=== PATIENT | female | born 1980 | race Caucasian/White ===

== ENCOUNTER 2023-04-20 01:53 | Emergency (ER) | payer OTHER, SELFPAY ==
[2023-04-20 01:56] VITALS: BP 119/89; PULSE 91; RESP 16; TEMP 36.9; O2SAT 99; BMI 28.2
--- NOTE | 2023-04-20 02:14 | ED.BACK1 ---
HPI - Back Pain/Injury General Chief Complaint: Back Pain/Injury Stated Complaint: BACK PAIN Time Seen by Provider: 04/20/23 02:11 Source: patient Mode of arrival: walk-in Limitations: no limitations History of Present Illness HPI Narrative: patient presents complaining of mid back pain. States it started tonight. states pain between her shoulder blades and increases with deep breath. Not short of breath. Denies injury Related Data Home Medications Medication Instructions Recorded Confirmed cariprazine 1.5 mg capsule 1.5 mg PO DAILY 04/20/23 04/20/23 (Vraylar) diazepam 5 mg tablet 5 mg PO DAILY 04/20/23 04/20/23 divalproex 250 mg tablet,delayed 250 mg PO DAILY 04/20/23 04/20/23 release divalproex 500 mg tablet,extended 500 mg PO DAILY 04/20/23 04/20/23 release 24 hr doxazosin 2 mg tablet 2 mg PO DAILY 04/20/23 04/20/23 dulaglutide 0.75 mg/0.5 mL 0.75 mg subcut DAILY 04/20/23 04/20/23 subcutaneous pen injector (Trulicity) dulaglutide 1.5 mg/0.5 mL 1.5 mg subcut DAILY 04/20/23 04/20/23 subcutaneous pen injector (Trulicity) ergocalciferol (vitamin D2) 1,250 1,250 mcg PO DAILY 04/20/23 04/20/23 mcg (50,000 unit) capsule ferrous sulfate 325 mg (65 mg 325 mg PO DAILY 04/20/23 04/20/23 iron) tablet (FeroSul) gabapentin 800 mg tablet 800 mg PO DAILY 04/20/23 04/20/23 ibuprofen 800 mg tablet 1,000 mg PO BID 04/20/23 04/20/23 metformin 500 mg tablet,extended 500 mg PO DAILY 04/20/23 04/20/23 release 24 hr tizanidine 4 mg capsule 8 mg PO BID PRN muscle spasticity 04/20/23 04/20/23 Allergies Allergy/AdvReac Type Severity Reaction Status Date / Time amitriptyline Allergy dizzy Verified 04/20/23 02:02 latex Allergy hives Verified 04/20/23 02:02 sulfamethoxazole Allergy Hives Verified 04/20/23 02:02 [From Bactrim] tramadol [From Ultram] Allergy seizures Verified 04/20/23 02:02 trimethoprim [From Bactrim] Allergy Hives Verified 04/20/23 02:02 Review of Systems ROS Status of ROS 10 or more systems reviewed and unremarkable except as noted in history and below PFS PFS Social History Smoking status: Current every day smoker Exam Constitutional Vital Signs, click to edit/add: Last Vital Signs Temp 98.4 F 04/20/23 01:56 Pulse 91 H 04/20/23 01:56 Resp 16 04/20/23 01:56 BP 119/89 H 04/20/23 01:56 Pulse Ox 99 04/20/23 01:56 O2 Del Method Room Air 04/20/23 01:56 Common normals: no apparent distress, oriented x3, healthy appearing and alert HENMT Common normals: normocephalic Eye Common normals: EOMs intact bilaterally and conjunctivae normal Respiratory Common normals: normal respiratory effort, no retractions, no use of accessory muscles and clear to auscultation bilaterally Cardio Common normals: regular rate, regular rhythm, S1 normal heart sound and S2 normal heart sound GI Common normals: Normal to inspection, nondistended, normoactive bowel sounds present and soft to palpation Extremity Common normals: normal to inspection and full ROM Neuro Common normals: oriented x3, CN's II-XII intact bilaterally, moves all extremities and no focal motor deficits Psych Appearance: grossly normal Course Vital Signs Vital signs: Vital Signs Temperature 98.4 F 04/20/23 01:56 Pulse Rate 91 H 04/20/23 01:56 Respiratory Rate 16 04/20/23 01:56 Blood Pressure 119/89 H 04/20/23 01:56 Pulse Oximetry 99 04/20/23 01:56 Oxygen Delivery Method Room Air 04/20/23 01:56 Temperature 98.4 F 04/20/23 01:56 Pulse Rate 91 H 04/20/23 01:56 Respiratory Rate 16 04/20/23 01:56 Blood Pressure 119/89 H 04/20/23 01:56 Pulse Oximetry 99 04/20/23 01:56 Oxygen Delivery Method Room Air 04/20/23 01:56 MDM - Back Pain/Injury MDM Narrative Medical decision making narrative: presents with mid thoracic back pain . No injury. inflammatory markers normal. CTA chest without PE . Does have elevated WBC that can be seen with pain. No findings of pneumonia. Treated with Toradol and magnesium for her pain and pain improved. Unclear as to the cause of the pain but no worrisome findings during exam and workup at this time. Advised to follow up with her PCP tomorrow for a recheck or to return if pain worsenns Lab Data Labs: Lab Results 04/20/23 Range/Units 02:51 WBC 14.3 H (4.0-11.0) 10^3/uL RBC 4.27 (4.20-5.40) 10^6/uL Hgb 12.8 (12.0-16.0) g/dL Hct 38.1 (36.0-48.0) % MCV 89.2 (81.0-99.0) fL MCH 30.0 (26.7-34.0) pg MCHC 33.6 (29.9-35.2) g/dL RDW 12.4 (11.0-15.0) % Plt Count 235 (150-450) 10^3/uL MPV 9.6 (9.5-13.5) fL Neut % (Auto) 63.4 (43.0-75.0) % Lymph % (Auto) 26.9 (20.5-60.0) % [place] % (Auto) 8.3 (1.7-12.0) % Eos % (Auto) 0.4 L (0.9-7.0) % Baso % (Auto) 0.4 (0.2-2.0) % Neut # (Auto) 9.1 H (1.4-6.5) 10^3/uL Lymph # (Auto) 3.8 (1.2-3.8) 10^3/uL [place] # (Auto) 1.2 H (0.3-0.8) 10^3/uL Eos # (Auto) 0.1 (0.0-0.7) 10^3/uL Baso # (Auto) 0.1 (0.0-0.1) 10^3/uL Abs Immat Gran (auto) 0.09 H (0.00-0.03) 10^3/uL Imm/Tot Granulo (auto) 0.6 H (0.0-0.5) % ESR 6 (<=20) mm/hr D-Dimer 0.42 (<=0.59) mg/L FEU Sodium 132 L (136-145) mmol/L Potassium 4.6 (3.5-5.1) mmol/L Chloride 97 L (98-107) mmol/L Carbon Dioxide 24.2 (21.0-32.0) mmol/L Anion Gap 15.4 BUN 12.0 (7.0-18.0) mg/dL Creatinine 0.70 (0.55-1.02) mg/dL Est GFR ( Amer) >60 (>=60) Est GFR (Non-Af Amer) >60 (>=60) BUN/Creatinine Ratio 17.1 Glucose 141 H (74-106) mg/dL Calcium 9.2 (8.5-10.1) mg/dL Total Bilirubin 0.3 (0.2-1.0) mg/dL AST 32 (15-37) U/L ALT 14 (14-59) U/L Alkaline Phosphatase 56 (46-116) U/L Troponin I High Sens <4.0 L (4.0-51.3) pg/mL C-Reactive Protein 0.5 (<=1.0) mg/dL Total Protein 6.9 (6.4-8.2) g/dL Albumin 3.5 (3.4-5.0) g/dL Globulin 3.4 g/dL Albumin/Globulin Ratio 1.0 Lipase 86.0 (73.0-393.0) U/L Discharge Plan Discharge Chief Complaint: Back Pain/Injury Clinical Impression: Acute midline back pain Prescriptions / Home Meds: No Action Vraylar 1.5 mg capsule 1.5 mg PO DAILY diazepam 5 mg tablet 5 mg PO DAILY divalproex 250 mg tablet,delayed release (DR/EC) 250 mg PO DAILY divalproex 500 mg tablet extended release 24 hr 500 mg PO DAILY doxazosin 2 mg tablet 2 mg PO DAILY Trulicity 0.75 mg/0.5 mL pen injector 0.75 mg SUBCUT DAILY Trulicity 1.5 mg/0.5 mL pen injector 1.5 mg SUBCUT DAILY ergocalciferol (vitamin D2) 1,250 mcg (50,000 unit) capsule 1,250 mcg PO DAILY ferrous sulfate [FeroSul] 325 mg (65 mg iron) tablet 325 mg PO DAILY gabapentin 800 mg tablet 800 mg PO DAILY ibuprofen 800 mg tablet 1,000 mg PO BID tizanidine 4 mg capsule 8 mg PO BID PRN (Reason: muscle spasticity) metformin 500 mg tablet extended release 24 hr 500 mg PO DAILY Instructions: Back Pain (ED) Additional Instructions: follow up with your doctor tomorrow for recheck. Return to ER if pain increases Stand Alone Forms: Portal Instructions Referrals: Physician,Non-Staff, MD [Primary Care Provider] - 1 week
--- NOTE | 2023-04-20 02:15 | PC.NURSE ---
patient states she began to develop back pain to the middle of her back yesterday that is continuing to get worse. denies any injury, states she has hx of fibromyalgia. patient states she tried several prescription pain medications, muscle relaxers, and NSAIDs but has had no relief in pain and has been unable to go to sleep.
--- NOTE | 2023-04-20 02:16 | ECG_ITS ---
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
--- NOTE | 2023-04-20 02:55 | CT_ITS ---
The [address] [address] Patient Name: RACHEL MCGARRY MRN: [id number] date: 1980 Sex: F Assigned Patient Location: ER Current Patient Location: Accession/Order Number: [id number] Exam Date: 04/20/2023 02:55 Report Date: 04/20/2023 03:45 At the request of: AMY MCKEON Procedure: CT angio chest EXAM: CT angio chest HISTORY: pleuritic chest pain , acute thoracic mid back pain with dyspnea COMPARISON: CT chest 05/11/2021 TECHNIQUE: Multiple axial views CT chest angiogram PE protocol after administration of 95 mL Omnipaque 350 IV contrast. Coronal sagittal reformats. 3-D reconstruction. MIPS and/or similar series. FINDINGS: No evidence for acute pulmonary embolism, thoracic aortic aneurysm, or aortic dissection. No enlarged heart size or large pericardial effusion. Right hilar calcified granulomatous lymph node. Multiple prominent left axillary lymph nodes measuring up to 13 mm. Central airway is patent. Mosaic attenuation of the lungs reflecting respiratory motion/hypoventilatory lung changes. No lung consolidation, large pleural effusions, or pneumothorax. Right lower lobe calcified lung granuloma. Diffuse hepatic steatosis and hepatomegaly. Minimal hiatal hernia. No acute bony abnormality. Unremarkable thoracic alignment. No vertebral body height loss. No acute fracture or traumatic subluxation. No visible displaced rib fractures. CT/CT angio chest IMPRESSION: No evidence for acute pulmonary embolism, thoracic aortic aneurysm, or aortic dissection. No enlarged heart size or large pericardial effusion. Multiple prominent left axillary lymph nodes measuring up to 13 mm. One of the lymph nodes contain a density, likely biopsy marker. These findings are similar to CT 05/11/2021 in terms of size. Correlate clinically and with prior biopsy history. Electronically authenticated by: HUSEYIN DE LA ROSA Date: 04/20/2023 03:45
[2023-04-20 03:09] LABS: Basophils Absolute Auto 0.1 10^3/uL (0.0-0.1); Basophils Percent Auto 0.4 % (0.2-2.0); Eosinophils Absolute Auto 0.1 10^3/uL (0.0-0.7); Eosinophils Percent Auto 0.4 % (0.9-7.0); Hematocrit 38.1 % (36.0-48.0); Hemoglobin 12.8 g/dL (12.0-16.0); Immature Granulocytes Abs Auto 0.09 10^3/uL (0.00-0.03); Immature Granulocytes Pct Auto 0.6 % (0.0-0.5); Lymphocytes Absolute Auto 3.8 10^3/uL (1.2-3.8); Lymphocytes Percent Auto 26.9 % (20.5-60.0); Mean Corpuscular HGB Conc 33.6 g/dL (29.9-35.2); Mean Corpuscular Volume 89.2 fL (81.0-99.0); Mean Platelet Volume 9.6 fL (9.5-13.5); Monocytes Absolute Auto 1.2 10^3/uL (0.3-0.8); Monocytes Percent Auto 8.3 % (1.7-12.0); Neutrophils Absolute Auto 9.1 10^3/uL (1.4-6.5); Neutrophils Percent Auto 63.4 % (43.0-75.0); Platelet Count 235 10^3/uL (150-450); Red Blood Count 4.27 10^6/uL (4.20-5.40); Red Cell Distribution Width 12.4 % (11.0-15.0); White Blood Count 14.3 10^3/uL (4.0-11.0)
[2023-04-20 03:34] LABS: D Dimer 0.42 mg/L FEU (<=0.59)
[2023-04-20 03:39] LABS: Alanine Aminotransferase 14 U/L (14-59); Albumin Level 3.5 g/dL (3.4-5.0); Alkaline Phosphatase 56 U/L (46-116); Anion Gap 15.4; Aspartate Amino Transferase 32 U/L (15-37); BUN Creatinine Ratio 17.1; Bilirubin Total 0.3 mg/dL (0.2-1.0); Calcium 9.2 mg/dL (8.5-10.1); Carbon Dioxide 24.2 mmol/L (21.0-32.0); Chloride 97 mmol/L (98-107); Estimated GFR (African America >60 (>=60); Estimated GFR (Non-African Ame >60 (>=60); Globulin 3.4 g/dL; Glucose 141 mg/dL (74-106); Potassium 4.6 mmol/L (3.5-5.1); Sodium 132 mmol/L (136-145); Total Protein 6.9 g/dL (6.4-8.2); Troponin I High Sensitivity <4.0 pg/mL (4.0-51.3)
[2023-04-20 04:41] LABS: Erythrocyte Sedimentation Rate 6 mm/hr (<=20)
[2023-04-20 04:44] LABS: C Reactive Protein 0.5 mg/dL (<=1.0)
[2023-04-20] MEDS: KETOROLAC TROMETHAMINE 30 MG/ML VIAL IVP (04:49)
== END 2023-04-20 05:41 | disposition home or self-care (01) ==
PROVIDERS: Emergency Provider Internal Medicine
DX: M54.9 Dorsalgia, unspecified (principal); Z79.899 Other long term (current) drug therapy; Z79.85 Long-term (current) use of injectable non-insulin antidiabetic drugs; F17.210 Nicotine dependence, cigarettes, uncomplicated
CPT/HCPCS: 36415; 71275; 80053; 83690; 84484; 85025; 85378; 85652; 86140; 93005; 96374; 96375; 99285; Q9967

== ENCOUNTER 2023-05-06 19:05 | Emergency (ER) | payer OTHER, SELFPAY ==
[2023-05-06 19:11] VITALS: BP 146/84; PULSE 72; RESP 16; TEMP 36.6; O2SAT 100; BMI 27.5
--- NOTE | 2023-05-06 19:28 | ED_ITS ---
HPI - Female Genitourinary General Chief complaint: Urogenital-Female Stated complaint: VAGINAL BLEEDING Time Seen by Provider: 05/06/23 19:11 Source: patient Mode of arrival: Wheelchair History of Present Illness HPI Narrative: This 43-year-old female presents for evaluation of lower abdominal cramping and heavy vaginal bleeding. The patient states she typically has a menstrual period for 3-5 days. This is day 7. She states she is soaking through dylan pads at the rate of 4per hour. He states he feels lightheaded. She has no chest pain or shortness of breath. She has not passed out. She denies the possibility of . Her previous [employer] was Dr. Velez. Dr. Velez told her that she had fibroids and endometriosis. She was seen yesterday by her family physician who gave her a prescription for [place] to use for pain. She has taken for [place] throughout the day today but states it is not helping her pain. She is not on control. She does smoke cigarettes. She is sexually active but uses protection and is certain that she is not because she had a negative test in her doctors office 2 days ago. MD elicited complaint: Reports vaginal bleeding Quality of pain: Reports cramping Related Data Home Medications Medication Instructions Recorded Confirmed cariprazine 1.5 mg capsule 1.5 mg PO DAILY 04/20/23 04/20/23 (Vraylar) diazepam 5 mg tablet 5 mg PO DAILY 04/20/23 04/20/23 divalproex 250 mg tablet,delayed 250 mg PO DAILY 04/20/23 04/20/23 release divalproex 500 mg tablet,extended 500 mg PO DAILY 04/20/23 04/20/23 release 24 hr doxazosin 2 mg tablet 2 mg PO DAILY 04/20/23 04/20/23 dulaglutide 0.75 mg/0.5 mL 0.75 mg subcut DAILY 04/20/23 04/20/23 subcutaneous pen injector (Trulicity) dulaglutide 1.5 mg/0.5 mL 1.5 mg subcut DAILY 04/20/23 04/20/23 subcutaneous pen injector (Trulicity) ergocalciferol (vitamin D2) 1,250 1,250 mcg PO DAILY 04/20/23 04/20/23 mcg (50,000 unit) capsule ferrous sulfate 325 mg (65 mg 325 mg PO DAILY 04/20/23 04/20/23 iron) tablet (FeroSul) gabapentin 800 mg tablet 800 mg PO DAILY 04/20/23 04/20/23 ibuprofen 800 mg tablet 1,000 mg PO BID 04/20/23 04/20/23 metformin 500 mg tablet,extended 500 mg PO DAILY 04/20/23 04/20/23 release 24 hr tizanidine 4 mg capsule 8 mg PO BID PRN muscle spasticity 04/20/23 04/20/23 Allergies Allergy/AdvReac Type Severity Reaction Status Date / Time amitriptyline Allergy dizzy Verified 04/20/23 02:02 latex Allergy hives Verified 04/20/23 02:02 sulfamethoxazole Allergy Hives Verified 04/20/23 02:02 [From Bactrim] tramadol [From Ultram] Allergy seizures Verified 04/20/23 02:02 trimethoprim [From Bactrim] Allergy Hives Verified 04/20/23 02:02 Review of Systems ROS Status of ROS 10 or more systems reviewed and unremarkable except as noted in history and below [facility] Social History Smoking status: Current every day smoker Exam Narrative Exam Narrative: Nurses note and vital signs reviewed and patient is not hypoxic. Blood pressure noted to be mildly elevated at 146/84 General: The patient appears well and in no apparent distress. Patient is resting comfortably on cart. She is ambulatory without difficulty and does not exhibit any exertional dyspnea Skin: Warm, dry, no pallor noted. There is no rash noted. Head: Normocephalic, atraumatic Eye: Normal conjunctiva, no drainage, EOMI. PERRL Ears, Nose, Mouth, and Throat: oral mucosa is moist. Cardiovascular: Regular Rate and Rhythm S1S2 Respiratory: Patient is in no distress, no accessory muscle use, lungs are clear to auscultation, no wheezing, rales or rhonchi Back: non-tender, no CVA tenderness bilaterally to percussion. GI: Obese, soft, non distended, lower abdominal tenderness - chaperoned by Sofiya ANDREWS; small amount of blood in vaginal vault, no clots appreciated, os is closed, no CMT Musculoskeletal: The patient has no evidence of calf tenderness, no pitting edema, symmetrical pulses noted bilaterally Neurological: A&O x4, normal speech Psychiatric: Cooperative Constitutional Vital Signs, click to edit/add: Last Vital Signs Temp 98.4 F 05/06/23 20:50 Pulse 77 05/06/23 22:02 Resp 16 05/06/23 22:02 BP 136/94 H 05/06/23 22:02 Pulse Ox 100 05/06/23 22:02 O2 Del Method Room Air 05/06/23 22:02 Course Course Hospital Course: [place] [address] Ultrasound Report Signed Patient: RACHEL MCGARRY MR#: [id number] : 1980 Acct:[id number] Age/Sex: 43 / F ADM Date: 05/06/23 Loc: ER Attending Dr: Ordering Physician: Anisa Chong Date of Service: 05/06/23 Procedure(s): US pelvis w/ transvaginal Accession Number(s): [id number] cc: Anisa Marker; Physician,Non-Staff M.D.~ ? [facility] ?? ? [address] [place] [address] ?? ? [place] [address] ? Patient Name: JOELLE MCGARRY ? MRN: [id number]? ? date: 1980? ? Sex: F Assigned Patient Location: ER Current Patient Location: ER Accession/Order Number: [id number] Exam Date: 05/06/2023? 19:40? ? Report Date: 05/06/2023? 22:16 ? At the request of: ANISA? MARKER? ? Procedure:? US pelvis w/ transvaginal ? EXAM: US pelvis w/ transvaginal ? CLINICAL HISTORY: Heavy vaginal bleeding ? COMPARISON: CT abdomen and pelvis 05/11/2021 ? TECHNIQUE: Transvaginal and transabdominal real-time grayscale and color Doppler imaging with pulsed duplex sonography was performed. ? FINDINGS: ? UTERUS: Measures 9 centimeters in length. Nabothian cyst is noted. Otherwise unremarkable. ? ENDOMETRIUM: Not well visualized but does not appear to be thickened measuring ? approximately 5 millimeters ? OVARIES: Right ovary appears unremarkable. Right ovary measures 3.2 by 1.5 by 2.7 cm. Left ovary demonstrates a hypoechoic structure with contents demonstrate reticular pattern measuring up to 3.9 centimeters. The left ovary measures 4.8 by 3.3 by 4.0 cm. Ovaries demonstrate color Doppler flow and appropriate spectral waveforms. ? MISCELLANEOUS: Small amount of cul-de-sac fluid ? US/US pelvis w/ transvaginal IMPRESSION: ? Endometrium is suboptimally visualized but does not appear thickened measuring ? approximately 5 millimeters. Otherwise unremarkable appearance of the uterus. Probable left hemorrhagic ovarian cyst. Unremarkable right ovary. ? Vital Signs Vital signs: Vital Signs Temperature 97.9 F 05/06/23 19:11 Pulse Rate 72 05/06/23 19:11 Respiratory Rate 16 05/06/23 19:11 Blood Pressure 146/84 H 05/06/23 19:11 Pulse Oximetry 100 05/06/23 19:11 Oxygen Delivery Method Room Air 05/06/23 19:11 Temperature 98.4 F 05/06/23 20:50 Pulse Rate 77 05/06/23 22:02 Respiratory Rate 16 05/06/23 22:02 Blood Pressure 136/94 H 05/06/23 22:02 Pulse Oximetry 100 05/06/23 22:02 Oxygen Delivery Method Room Air 05/06/23 22:02 MDM - Female Genitourinary MDM Narrative Medical decision making narrative: This 43-year-old female presents for evaluation of 7 days of heavy vaginal bleeding. She was seen by her family physician and given a prescription for [place] and referred to Dr. Sridhra jones, [employer]. She does not have an appointment for 2 weeks. She states she was going to 4 pads an hour. She complained of some lightheadedness. She denied any chest pain shortness of breath or syncope. She also complained of lower abdominal cramping. Her vital signs are stable. She had a negative test 2 days ago. Her pelvic exam revealed a small amount of blood in the vaginal vault, no CMT, no clotting or heavy active bleeding. An ultrasound of the pelvis which is occluded the body of this report shows 5 mm thickening of the endometrium and a left hemorrhagic cyst but no other abnormal findings. The patient does state that she has a history of fibroids. Routine labs were ordered and are reviewed. She has a normal hemoglobin. Normal white count. Electrolytes are normal with the exception of a mildly low sodium at 129. She was medicated emergency department with IV fluids, Zofran and Toradol. She remains hemodynamically stable in emergency department. On reevaluation she states that she felt like her bleeding has slowed down. She'll be discharged home with prescription for ibuprofen to use in conjunction with her other medications. I signed her that I am not going to initiate steroids to decrease her vaginal bleeding to the fact that she smokes cigarettes and this puts her at a higher risk of stroke, heart attack, deep vein thrombosis and PE. She verbalizes understanding of this decision of midline. She is otherwise hemodynamically stable for discharge. Lab Data Labs: Lab Results 05/06/23 Range/Units 19:35 WBC 15.6 H (4.0-11.0) 10^3/uL RBC 4.28 (4.20-5.40) 10^6/uL Hgb 12.9 (12.0-16.0) g/dL Hct 37.0 (36.0-48.0) % MCV 86.4 (81.0-99.0) fL MCH 30.1 (26.7-34.0) pg MCHC 34.9 (29.9-35.2) g/dL RDW 12.2 (11.0-15.0) % Plt Count 349 (150-450) 10^3/uL MPV 8.9 L (9.5-13.5) fL Neut % (Auto) 66.8 (43.0-75.0) % Lymph % (Auto) 23.9 (20.5-60.0) % [place] % (Auto) 7.9 (1.7-12.0) % Eos % (Auto) 0.3 L (0.9-7.0) % Baso % (Auto) 0.4 (0.2-2.0) % Neut # (Auto) 10.5 H (1.4-6.5) 10^3/uL Lymph # (Auto) 3.7 (1.2-3.8) 10^3/uL [place] # (Auto) 1.2 H (0.3-0.8) 10^3/uL Eos # (Auto) 0.1 (0.0-0.7) 10^3/uL Baso # (Auto) 0.1 (0.0-0.1) 10^3/uL Abs Immat Gran (auto) 0.11 H (0.00-0.03) 10^3/uL Imm/Tot Granulo (auto) 0.7 H (0.0-0.5) % Sodium 129 L (136-145) mmol/L Potassium 4.0 (3.5-5.1) mmol/L Chloride 95 L (98-107) mmol/L Carbon Dioxide 25.8 (21.0-32.0) mmol/L Anion Gap 12.2 BUN 11.0 (7.0-18.0) mg/dL Creatinine 0.70 (0.55-1.02) mg/dL Est GFR ( Amer) >60 (>=60) Est GFR (Non-Af Amer) >60 (>=60) BUN/Creatinine Ratio 15.7 Glucose 185 H (74-106) mg/dL Calcium 8.5 (8.5-10.1) mg/dL Total Bilirubin 0.2 (0.2-1.0) mg/dL AST 13 L (15-37) U/L ALT 12 L (14-59) U/L Alkaline Phosphatase 60 (46-116) U/L Total Protein 7.1 (6.4-8.2) g/dL Albumin 3.6 (3.4-5.0) g/dL Globulin 3.5 g/dL Albumin/Globulin Ratio 1.0 Serum HCG, Qual Cancelled Blood Type A Positive Antibody Screen Negative Discharge Plan Discharge Chief Complaint: Urogenital-Female Clinical Impression: Menometrorrhagia Patient Disposition: Home, Self-Care Time of Disposition Decision: 22:38 Condition: Good Prescriptions / Home Meds: No Action Vraylar 1.5 mg capsule 1.5 mg PO DAILY diazepam 5 mg tablet 5 mg PO DAILY divalproex 250 mg tablet,delayed release (DR/EC) 250 mg PO DAILY divalproex 500 mg tablet extended release 24 hr 500 mg PO DAILY doxazosin 2 mg tablet 2 mg PO DAILY Trulicity 0.75 mg/0.5 mL pen injector 0.75 mg SUBCUT DAILY Trulicity 1.5 mg/0.5 mL pen injector 1.5 mg SUBCUT DAILY ergocalciferol (vitamin D2) 1,250 mcg (50,000 unit) capsule 1,250 mcg PO DAILY ferrous sulfate [FeroSul] 325 mg (65 mg iron) tablet 325 mg PO DAILY gabapentin 800 mg tablet 800 mg PO DAILY ibuprofen 800 mg tablet 1,000 mg PO BID tizanidine 4 mg capsule 8 mg PO BID PRN (Reason: muscle spasticity) metformin 500 mg tablet extended release 24 hr 500 mg PO DAILY Instructions: Abnormal (Dysfunctional) Uterine Bleeding (ED) Stand Alone Forms: Portal Instructions Referrals: Physician,Non-Staff, MD [Primary Care Provider] - 1 week
--- NOTE | 2023-05-06 19:33 | US_ITS ---
The [address] [address] Patient Name: RACHEL MCGARRY MRN: [id number] date: 1980 Sex: F Assigned Patient Location: ER Current Patient Location: ER Accession/Order Number: [id number] Exam Date: 05/06/2023 19:40 Report Date: 05/06/2023 22:16 At the request of: DERICK MARKER Procedure: US pelvis w/ transvaginal EXAM: US pelvis w/ transvaginal CLINICAL HISTORY: Heavy vaginal bleeding COMPARISON: CT abdomen and pelvis 05/11/2021 TECHNIQUE: Transvaginal and transabdominal real-time grayscale and color Doppler imaging with pulsed duplex sonography was performed. FINDINGS: UTERUS: Measures 9 centimeters in length. Nabothian cyst is noted. Otherwise unremarkable. ENDOMETRIUM: Not well visualized but does not appear to be thickened measuring approximately 5 millimeters OVARIES: Right ovary appears unremarkable. Right ovary measures 3.2 by 1.5 by 2.7 cm. Left ovary demonstrates a hypoechoic structure with contents demonstrate reticular pattern measuring up to 3.9 centimeters. The left ovary measures 4.8 by 3.3 by 4.0 cm. Ovaries demonstrate color Doppler flow and appropriate spectral waveforms. MISCELLANEOUS: Small amount of cul-de-sac fluid US/US pelvis w/ transvaginal IMPRESSION: Endometrium is suboptimally visualized but does not appear thickened measuring approximately 5 millimeters. Otherwise unremarkable appearance of the uterus. Probable left hemorrhagic ovarian cyst. Unremarkable right ovary. Electronically authenticated by: TRISTIAN MARQUIS Date: 05/06/2023 22:16
[2023-05-06 19:50] LABS: Basophils Absolute Auto 0.1 10^3/uL (0.0-0.1); Basophils Percent Auto 0.4 % (0.2-2.0); Eosinophils Absolute Auto 0.1 10^3/uL (0.0-0.7); Eosinophils Percent Auto 0.3 % (0.9-7.0); Hemoglobin 12.9 g/dL (12.0-16.0); Immature Granulocytes Abs Auto 0.11 10^3/uL (0.00-0.03); Immature Granulocytes Pct Auto 0.7 % (0.0-0.5); Lymphocytes Absolute Auto 3.7 10^3/uL (1.2-3.8); Lymphocytes Percent Auto 23.9 % (20.5-60.0); Mean Corpuscular HGB Conc 34.9 g/dL (29.9-35.2); Mean Corpuscular Hemoglobin 30.1 pg (26.7-34.0); Mean Corpuscular Volume 86.4 fL (81.0-99.0); Mean Platelet Volume 8.9 fL (9.5-13.5); Monocytes Absolute Auto 1.2 10^3/uL (0.3-0.8); Monocytes Percent Auto 7.9 % (1.7-12.0); Neutrophils Absolute Auto 10.5 10^3/uL (1.4-6.5); Neutrophils Percent Auto 66.8 % (43.0-75.0); Platelet Count 349 10^3/uL (150-450); Red Blood Count 4.28 10^6/uL (4.20-5.40); Red Cell Distribution Width 12.2 % (11.0-15.0); White Blood Count 15.6 10^3/uL (4.0-11.0)
[2023-05-06 20:36] LABS: Alanine Aminotransferase 12 U/L (14-59); Albumin Level 3.6 g/dL (3.4-5.0); Alkaline Phosphatase 60 U/L (46-116); Anion Gap 12.2; Aspartate Amino Transferase 13 U/L (15-37); BUN Creatinine Ratio 15.7; Bilirubin Total 0.2 mg/dL (0.2-1.0); Calcium 8.5 mg/dL (8.5-10.1); Carbon Dioxide 25.8 mmol/L (21.0-32.0); Chloride 95 mmol/L (98-107); Estimated GFR (African America >60 (>=60); Estimated GFR (Non-African Ame >60 (>=60); Globulin 3.5 g/dL; Glucose 185 mg/dL (74-106); Sodium 129 mmol/L (136-145); Total Protein 7.1 g/dL (6.4-8.2)
[2023-05-06 20:50] VITALS: BP 151/92; PULSE 75; RESP 16; TEMP 36.9; O2SAT 95
[2023-05-06] MEDS: KETOROLAC TROMETHAMINE 30 MG/ML VIAL IVP (20:56)
[2023-05-06] MEDS: 0.9 % SODIUM CHLORIDE 1,000 ML 1000 ML IV (20:56)
[2023-05-06 22:02] VITALS: BP 136/94; PULSE 77; RESP 16; O2SAT 100
[2023-05-06 22:42] VITALS: BP 156/90; PULSE 77; RESP 14; O2SAT 100
== END 2023-05-06 22:50 | disposition home or self-care (01) ==
PROVIDERS: Emergency Provider Emergency Medicine
DX: N92.1 Excessive and frequent menstruation with irregular cycle (principal); Z79.899 Other long term (current) drug therapy; Z79.84 Long term (current) use of oral hypoglycemic drugs; F17.210 Nicotine dependence, cigarettes, uncomplicated
CPT/HCPCS: 36415; 76830; 76856; 80053; 84703; 85025; 86850; 86900; 86901; 96374; 99285

== ENCOUNTER 2023-10-02 19:41 | Emergency (ER) | payer OTHER, SELFPAY ==
[2023-10-02 19:58] VITALS: BP 152/78; PULSE 93; RESP 16; TEMP 36.8; O2SAT 98; BMI 37.9
[2023-10-02 22:00] LABS: Bilirubin Urine NEGATIVE (NEGATIVE); Blood Urine NEGATIVE (NEGATIVE); Clarity Urine CLEAR (CLEAR); Color Urine LT. YELLOW (YELLOW); Glucose Urine UA >=1000 mg/dL (NEGATIVE); Ketones Urine TRACE mg/dL (NEGATIVE); Leukocyte Esterase Urine TRACE (NEGATIVE); Nitrite Urine NEGATIVE (NEGATIVE); Protein Urine NEGATIVE (NEG/TRACE); Urobilinogen Urine 0.2 EU/dL (0.2-1.0)
--- NOTE | 2023-10-02 22:04 | ED.FEMALEGU1 ---
HPI - Female Genitourinary General Chief complaint: Vaginal Bleeding Stated complaint: POSS SURGERY ISSUES Time Seen by Provider: 10/02/23 20:03 Source: patient Mode of arrival: walk-in Limitations: no limitations History of Present Illness HPI Narrative: 43-year-old female presents for discomfort in her vaginal area. On September 28, four days ago, she had hysterectomy. Two days ago the symptoms started. She has some pressure when she urinates. No heavy vaginal bleeding. No discharge. Related Data Home Medications Medication Instructions Recorded Confirmed cariprazine 1.5 mg capsule 1.5 mg PO DAILY 04/20/23 04/20/23 (Vraylar) diazepam 5 mg tablet 5 mg PO DAILY 04/20/23 04/20/23 divalproex 250 mg tablet,delayed 250 mg PO DAILY 04/20/23 04/20/23 release divalproex 500 mg tablet,extended 500 mg PO DAILY 04/20/23 04/20/23 release 24 hr doxazosin 2 mg tablet 2 mg PO DAILY 04/20/23 04/20/23 dulaglutide 0.75 mg/0.5 mL 0.75 mg subcut DAILY 04/20/23 04/20/23 subcutaneous pen injector (Trulicity) dulaglutide 1.5 mg/0.5 mL 1.5 mg subcut DAILY 04/20/23 04/20/23 subcutaneous pen injector (Trulicity) ergocalciferol (vitamin D2) 1,250 1,250 mcg PO DAILY 04/20/23 04/20/23 mcg (50,000 unit) capsule ferrous sulfate 325 mg (65 mg 325 mg PO DAILY 04/20/23 04/20/23 iron) tablet (FeroSul) gabapentin 800 mg tablet 800 mg PO DAILY 04/20/23 04/20/23 ibuprofen 800 mg tablet 1,000 mg PO BID 04/20/23 04/20/23 metformin 500 mg tablet,extended 500 mg PO DAILY 04/20/23 04/20/23 release 24 hr tizanidine 4 mg capsule 8 mg PO BID PRN muscle spasticity 04/20/23 04/20/23 Allergies Allergy/AdvReac Type Severity Reaction Status Date / Time amitriptyline Allergy dizzy Verified 10/02/23 20:02 latex Allergy hives Verified 10/02/23 20:02 sulfamethoxazole Allergy Hives Verified 10/02/23 20:02 [From Bactrim] tramadol [From Ultram] Allergy seizures Verified 10/02/23 20:02 trimethoprim [From Bactrim] Allergy Hives Verified 10/02/23 20:02 Review of Systems ROS Narrative A ten point review of systems is negative except as noted above. PFSH PFSH Social History Smoking status: Current every day smoker Exam Narrative Exam Narrative: Nurses note and vital signs reviewed and patient is not hypoxic. General: The patient appears well and in no apparent distress. Patient is resting comfortably on cart. Skin: Warm, dry, no pallor noted. There is no rash noted. Head: Normocephalic, atraumatic Eye: Normal conjunctiva, no drainage Ears, Nose, Mouth, and Throat: oral mucosa is moist. Nares patent. Cardiovascular: Regular Rate and Rhythm Respiratory: Patient is in no distress, no accessory muscle use, lungs are clear to auscultation, no wheezing, rales or rhonchi Back: non-tender GI: soft and nontender. Surgical wound is healing well with no dehiscence or erythema Musculoskeletal: The patient has no evidence of calf tenderness, no pitting edema, symmetrical pulses noted bilaterally : No external skin lesions or erythema Neurological: A&O, normal speech Psychiatric: Cooperative Constitutional Vital Signs, click to edit/add: Last Vital Signs Temp 98.2 F 10/02/23 19:58 Pulse 73 10/02/23 22:06 Resp 18 10/02/23 22:06 BP 117/83 10/02/23 22:06 Pulse Ox 97 10/02/23 22:06 O2 Del Method Room Air 10/02/23 19:58 Course Vital Signs Vital signs: Vital Signs Temperature 98.2 F 10/02/23 19:58 Pulse Rate 93 H 10/02/23 19:58 Respiratory Rate 16 10/02/23 19:58 Blood Pressure 152/78 H 10/02/23 19:58 Pulse Oximetry 98 10/02/23 19:58 Oxygen Delivery Method Room Air 10/02/23 19:58 Temperature 98.2 F 10/02/23 19:58 Pulse Rate 73 10/02/23 22:06 Respiratory Rate 18 10/02/23 22:06 Blood Pressure 117/83 10/02/23 22:06 Pulse Oximetry 97 10/02/23 22:06 Oxygen Delivery Method Room Air 10/02/23 19:58 MDM - Female Genitourinary MDM Narrative Medical decision making narrative: urinalysis does not show presence of urinary tract infection. WBC is elevated at nineteen thousand but she has a benign physical exam and recently had surgery. She was offered pelvic exam for swabs but prefers to not do that because of her recent surgery and she'll follow up promptly with her printing screen assembler. In the event that this is a vaginal yeast infection we have agreed that the patient will be treated with Diflucan tonight. Treatment diagnosis and follow-up were discussed with the patient. Differential Diagnosis Differential diagnosis: Likely urinary tract infection, trichomoniasis, cervicitis, vaginitis, cystitis and other (vaginal yeast infection) Lab Data Attestation: I reviewed the patient's lab results. Labs: Lab Results 10/02/23 10/02/23 Range/Units 21:30 22:32 WBC 19.2 H (4.0-11.0) 10^3/uL RBC 4.17 L (4.20-5.40) 10^6/uL Hgb 12.5 (12.0-16.0) g/dL Hct 38.0 (36.0-48.0) % MCV 91.1 (81.0-99.0) fL MCH 30.0 (26.7-34.0) pg MCHC 32.9 (29.9-35.2) g/dL RDW 12.8 (11.0-15.0) % Plt Count 239 (150-450) 10^3/uL MPV 9.8 (9.5-13.5) fL Neut % (Auto) 70.1 (43.0-75.0) % Lymph % (Auto) 20.2 L (20.5-60.0) % [place] % (Auto) 6.1 (1.7-12.0) % Eos % (Auto) 2.5 (0.9-7.0) % Baso % (Auto) 0.4 (0.2-2.0) % Neut # (Auto) 13.5 H (1.4-6.5) 10^3/uL Lymph # (Auto) 3.9 H (1.2-3.8) 10^3/uL [place] # (Auto) 1.2 H (0.3-0.8) 10^3/uL Eos # (Auto) 0.5 (0.0-0.7) 10^3/uL Baso # (Auto) 0.1 (0.0-0.1) 10^3/uL Abs Immat Gran (auto) 0.14 H (0.00-0.03) 10^3/uL Imm/Tot Granulo (auto) 0.7 H (0.0-0.5) % Sodium 132 L (136-145) mmol/L Potassium 4.5 (3.5-5.1) mmol/L Chloride 99 (98-107) mmol/L Carbon Dioxide 21.7 (21.0-32.0) mmol/L Anion Gap 15.8 BUN 9.0 (7.0-18.0) mg/dL Creatinine 0.73 (0.55-1.02) mg/dL Est GFR ( Amer) >60 (>=60) Est GFR (Non-Af Amer) >60 (>=60) BUN/Creatinine Ratio 12.3 Glucose 221 H (74-106) mg/dL Calcium 9.4 (8.5-10.1) mg/dL Urine Color Lt. yellow (YELLOW) Urine Clarity Clear (CLEAR) Urine pH 7.0 (5.0-9.0) Ur Specific [place] 1.010 (1.005-1.025) Urine Protein Negative (NEG/TRACE) mg/dL Urine Glucose (UA) >=1000 A (NEGATIVE) mg/dL Urine Ketones Trace A (NEGATIVE) mg/dL Urine Occult Blood Negative (NEGATIVE) Urine Nitrite Negative (NEGATIVE) Urine Bilirubin Negative (NEGATIVE) Urine Urobilinogen 0.2 (0.2-1.0) EU/dL Ur Leukocyte Esterase Trace A (NEGATIVE) Urine RBC 0-2 (0-2) #/HPF Urine WBC 0-2 A (NONE SEEN) #/HPF Ur Squamous Epith Cells Few A (NONE/RARE) #/LPF Urine Crystals None seen (None Seen) #/HPF Urine Bacteria None seen (NONE SEEN) #/HPF Urine Casts None seen (NONE SEEN) #/LPF Urine Mucus None seen (NONE SEEN) Ur Culture Indicated? No Discharge Plan Discharge Chief Complaint: Vaginal Bleeding Clinical Impression: Vaginitis Patient Disposition: Home, Self-Care Time of Disposition Decision: 23:24 Condition: Good Mode of Transportation: Private Vehicle Prescriptions / Home Meds: No Action Vraylar 1.5 mg capsule 1.5 mg PO DAILY diazepam 5 mg tablet 5 mg PO DAILY divalproex 250 mg tablet,delayed release (DR/EC) 250 mg PO DAILY divalproex 500 mg tablet extended release 24 hr 500 mg PO DAILY doxazosin 2 mg tablet 2 mg PO DAILY Trulicity 0.75 mg/0.5 mL pen injector 0.75 mg SUBCUT DAILY Trulicity 1.5 mg/0.5 mL pen injector 1.5 mg SUBCUT DAILY ergocalciferol (vitamin D2) 1,250 mcg (50,000 unit) capsule 1,250 mcg PO DAILY ferrous sulfate [FeroSul] 325 mg (65 mg iron) tablet 325 mg PO DAILY gabapentin 800 mg tablet 800 mg PO DAILY ibuprofen 800 mg tablet 1,000 mg PO BID tizanidine 4 mg capsule 8 mg PO BID PRN (Reason: muscle spasticity) metformin 500 mg tablet extended release 24 hr 500 mg PO DAILY Instructions: Vaginal Discharge (ED) Additional Instructions: follow up promptly with your printing screen assembler Stand Alone Forms: Portal Instructions Referrals: Physician,Non-Staff, MD [Primary Care Provider] - 1 week
[2023-10-02 22:05] LABS: Urine Microscopic Indicated YES
[2023-10-02 22:06] VITALS: BP 117/83; PULSE 73; RESP 18; O2SAT 97
--- NOTE | 2023-10-02 22:07 | PC.NURSE ---
No vaginal bleeding at this time. Patient reports having vaginal discharge that is clear/white in color. Dr. Rivero at bedside and exam completed with this nurse present. No redness, bleeding or discharge noted on external vaginal exam.
[2023-10-02 22:10] LABS: RBC Urine 0-2 #/HPF (0-2)
[2023-10-02 22:11] LABS: Bacteria Urine NONE SEEN #/HPF (NONE SEEN); Cast Seen? NONE SEEN #/LPF (NONE SEEN); Crystals Seen? None Seen #/HPF (None Seen); Mucus Urine NONE SEEN (NONE SEEN); Squamous Epithelial Cell Urine FEW #/LPF (NONE/RARE); Urine Culture Indicated NO; WBC Urine 0-2 #/HPF (NONE SEEN)
[2023-10-02 22:38] LABS: Basophils Absolute Auto 0.1 10^3/uL (0.0-0.1); Basophils Percent Auto 0.4 % (0.2-2.0); Eosinophils Absolute Auto 0.5 10^3/uL (0.0-0.7); Eosinophils Percent Auto 2.5 % (0.9-7.0); Hemoglobin 12.5 g/dL (12.0-16.0); Immature Granulocytes Abs Auto 0.14 10^3/uL (0.00-0.03); Immature Granulocytes Pct Auto 0.7 % (0.0-0.5); Lymphocytes Absolute Auto 3.9 10^3/uL (1.2-3.8); Lymphocytes Percent Auto 20.2 % (20.5-60.0); Mean Corpuscular HGB Conc 32.9 g/dL (29.9-35.2); Mean Corpuscular Volume 91.1 fL (81.0-99.0); Mean Platelet Volume 9.8 fL (9.5-13.5); Monocytes Absolute Auto 1.2 10^3/uL (0.3-0.8); Monocytes Percent Auto 6.1 % (1.7-12.0); Neutrophils Absolute Auto 13.5 10^3/uL (1.4-6.5); Neutrophils Percent Auto 70.1 % (43.0-75.0); Platelet Count 239 10^3/uL (150-450); Red Blood Count 4.17 10^6/uL (4.20-5.40); Red Cell Distribution Width 12.8 % (11.0-15.0); White Blood Count 19.2 10^3/uL (4.0-11.0)
[2023-10-02 22:53] LABS: Anion Gap 15.8; BUN Creatinine Ratio 12.3; Calcium 9.4 mg/dL (8.5-10.1); Carbon Dioxide 21.7 mmol/L (21.0-32.0); Chloride 99 mmol/L (98-107); Estimated GFR (African America >60 (>=60); Estimated GFR (Non-African Ame >60 (>=60); Glucose 221 mg/dL (74-106); Potassium 4.5 mmol/L (3.5-5.1); Sodium 132 mmol/L (136-145)
[2023-10-02] MEDS: FLUCONAZOLE 150 MG TABLET PO (23:49)
== END 2023-10-02 23:55 | disposition home or self-care (01) ==
PROVIDERS: Emergency Provider Emergency Medicine
DX: N76.0 Acute vaginitis (principal); Z79.84 Long term (current) use of oral hypoglycemic drugs; Z79.899 Other long term (current) drug therapy; Z79.85 Long-term (current) use of injectable non-insulin antidiabetic drugs; F17.200 Nicotine dependence, unspecified, uncomplicated; Z90.710 Acquired absence of both cervix and uterus; Z98.890 Other specified postprocedural states
CPT/HCPCS: 36415; 80048; 81001; 85025; 99284

== ENCOUNTER 2023-10-07 19:08 | Emergency (ER) | payer OTHER, SELFPAY ==
[2023-10-07 19:09] VITALS: BP 140/83; PULSE 95; RESP 16; TEMP 36.8; O2SAT 99; BMI 28.1
--- NOTE | 2023-10-07 19:30 | ED_ITS ---
HPI - Abdominal Pain General Chief Complaint: Abdominal Pain Stated Complaint: ABDOMINAL PAIN Time Seen by Provider: 10/07/23 19:17 Source: patient Mode of arrival: ambulance History of Present Illness HPI narrative: This 43-year-old female who is status post vaginal hysterectomy on September [address] Grigsby at [facility], presents for evaluation of generalized abdominal pain. The patient states that she has been having bowel movements. Today she started having severe generalized abdominal pain and 3 episodes of vomiting. She has not had any diarrhea. She has not had a fever. She states that she was sent home with 3 days of Pelsor. She is out of her pain medication at this time. She denies any chest pain or shortness of breath. Her states that he came home from work and she was sitting on the couch crying in pain and that is unlike her. She had a hysterectomy due to painful periods and heavy periods. Related Data Home Medications Medication Instructions Recorded Confirmed cariprazine 1.5 mg capsule 1.5 mg PO DAILY 04/20/23 04/20/23 (Vraylar) diazepam 5 mg tablet 5 mg PO DAILY 04/20/23 04/20/23 divalproex 250 mg tablet,delayed 250 mg PO DAILY 04/20/23 04/20/23 release divalproex 500 mg tablet,extended 500 mg PO DAILY 04/20/23 04/20/23 release 24 hr doxazosin 2 mg tablet 2 mg PO DAILY 04/20/23 04/20/23 dulaglutide 0.75 mg/0.5 mL 0.75 mg subcut DAILY 04/20/23 04/20/23 subcutaneous pen injector (Trulicity) dulaglutide 1.5 mg/0.5 mL 1.5 mg subcut DAILY 04/20/23 04/20/23 subcutaneous pen injector (Trulicity) ergocalciferol (vitamin D2) 1,250 1,250 mcg PO DAILY 04/20/23 04/20/23 mcg (50,000 unit) capsule ferrous sulfate 325 mg (65 mg 325 mg PO DAILY 04/20/23 04/20/23 iron) tablet (FeroSul) gabapentin 800 mg tablet 800 mg PO DAILY 04/20/23 04/20/23 ibuprofen 800 mg tablet 1,000 mg PO BID 04/20/23 04/20/23 metformin 500 mg tablet,extended 500 mg PO DAILY 04/20/23 04/20/23 release 24 hr tizanidine 4 mg capsule 8 mg PO BID PRN muscle spasticity 04/20/23 04/20/23 Allergies Allergy/AdvReac Type Severity Reaction Status Date / Time amitriptyline Allergy dizzy Verified 10/07/23 19:12 latex Allergy hives Verified 10/07/23 19:12 sulfamethoxazole Allergy Hives Verified 10/07/23 19:12 [From Bactrim] tramadol [From Ultram] Allergy seizures Verified 10/07/23 19:12 trimethoprim [From Bactrim] Allergy Hives Verified 10/07/23 19:12 Review of Systems ROS Status of ROS 10 or more systems reviewed and unremark able except as noted in history and below PFSH PFS Social History Smoking status: Current every day smoker Exam Narrative Exam Narrative: Nurses note and vital signs reviewed and patient is not hypoxic. General: Alert, nontoxic but somewhat uncomfortable appearing female, no respiratory distress Skin: Warm, dry, no pallor noted. There is no rash noted. Head: Normocephalic, atraumatic Eye: Normal conjunctiva, no drainage, EOMI. PERRL. No scleral icterus Ears, Nose, Mouth, and Throat: oral mucosa is moist. Nares patent. Cardiovascular: Regular Rate and Rhythm S1S2, pulses are brisk and equal bilaterally Respiratory: Patient is in no distress, no accessory muscle use, lungs are clear to auscultation, no wheezing, rales or rhonchi Back: non-tender, no CVA tenderness bilaterally to percussion. GI: Mildy hyperactive bowel sounds, softly distended, diffusely tender, laparoscopic incision sites are clean, dry and intact Musculoskeletal: The patient has no evidence of calf tenderness, no pitting edema, symmetrical pulses noted bilaterally Neurological: A&O x4, normal speech Psychiatric: Cooperative, tearful Constitutional Vital Signs, click to edit/add: Last Vital Signs Temp 98.3 F 10/07/23 19:09 Pulse 106 H 10/07/23 21:45 Resp 16 10/07/23 21:45 BP 109/80 10/07/23 21:45 Pulse Ox 98 10/07/23 21:45 O2 Del Method Room Air 10/07/23 21:45 Course Vital Signs Vital signs: Vital Signs Temperature 98.3 F 10/07/23 19:09 Pulse Rate 95 H 10/07/23 19:09 Respiratory Rate 16 10/07/23 19:09 Blood Pressure 140/83 10/07/23 19:09 Pulse Oximetry 99 10/07/23 19:09 Oxygen Delivery Method Room Air 10/07/23 19:09 Temperature 98.3 F 10/07/23 19:09 Pulse Rate 106 H 10/07/23 21:45 Respiratory Rate 16 10/07/23 21:45 Blood Pressure 109/80 10/07/23 21:45 Pulse Oximetry 98 10/07/23 21:45 Oxygen Delivery Method Room Air 10/07/23 21:45 MDM - Abdominal Pain MDM Narrative Medical decision making narrative: 43-year-old female who is 9 days postop for a vaginal hysterectomy for menometrorrhagia and pelvic pain presents for evaluation of abdominal pain with 3 episodes of vomiting. She has not had a fever. She has been having bowel movements. After her hysterectomy she came to this emergency department because she was having some vaginal itching and was medicated with Diflucan. He states her vaginal itching resolved. She is not having any specific urinary symptoms. She has not had a fever. Today she started having abdominal pain and her brought her to the hospital. Her abdomen is softly distended with good bowel sounds. An IV was placed and she was medicated with IV fluids, Zofran and morphine. She had mild improvement with the morphine but still had a pain of 6 out of 10. Routine labs are reviewed. She has a white count of 20. Of note her white count was 19.2 when she was seen postoperatively. She has a Glass of 223 and a lactic acid of 3. Sodium is low at 129. CT scan of the abdomen/pelvis Is included in the body of this report does not show any abscess or acute findings related to her surgery but does show some hyperemia of the small bowel. Due to the pain, nausea vomiting and elevated white count I discussed the case with Dr. Velez, Dr. Haile suggested the patient be transferred to [facility] for further evaluation and treatment. She will be empirically treated with 3.375 mg IV Zosyn prior to her transfer. Her will drive her by private vehicle once a bed has been assigned. Patient and her are in agreement with this plan. Medical Records Medical records narrative: The [address] [address] [address] Scan Report Signed Patient: RACHEL MCGARRY MR#: [id number] : 1980 Acct:[id number] Age/Sex: 43 / F ADM Date: 10/07/23 Loc: ER Attending Dr: Ariella Physician: Anisa Chong Date of Service: 10/07/23 Procedure(s): CT abdomen pelvis w con Accession Number(s): [id number] cc: Physician,Non-Staff M.D.~ [facility] [address], [place] [address] Patient Name: RACHEL MCGARRY MRN: [id number] date: 1980 Sex: F Assigned Patient Location: ER Current Patient Location: ER Accession/Order Number: [id number] Exam Date: 10/07/2023 19:51 Report Date: 10/07/2023 20:46 At the request of: ANISA CHONG Procedure: CT abdomen pelvis w con EXAM: CT abdomen pelvis w con HISTORY: post op abd pain COMPARISON: CT abdomen pelvis 05/11/2021 TECHNIQUE: Intravenous contrast-enhanced axial CT of the abdomen and pelvis was performed with coronal and sagittal reformats provided. FINDINGS: Lung bases: Bibasilar scarring or atelectasis. ABDOMEN: Liver: Hepatic steatosis. Gallbladder/biliary: Status post cholecystectomy. Pancreas: Normal. Spleen: Multiple punctate calcifications seen throughout the spleen likely sequelae of prior granulomatous disease. Adrenals: Normal. Kidneys, ureters and urinary bladder: Unremarkable. Pelvis: Status post hysterectomy. No adnexal masses. Vasculature: Calcific atherosclerosis of the abdominal aorta which is normal caliber. Major venous structures of the abdomen are patent. Hollow viscera/retroperitoneum: Normal appearance of the gastroesophageal junction. Small bowel is normal caliber. Status post appendectomy. Mild hyperemia and thickening of the distal small bowel. No focal colonic wall thickening. Trace fluid in the pelvis. There is trace free air at the ventral midline abdomen which may be post surgical. No mesenteric or pelvic lymphadenopathy. Musculoskeletal/soft tissues: Soft tissues within normal limits. No acute fracture or aggressive osseous abnormality. CT/CT abdomen pelvis w con IMPRESSION: Status post appendectomy, cholecystectomy and hysterectomy. Trace free air in the abdomen may be related to surgical procedure. Nonspecific hyperemia and thickening of the small bowel distally could be seen with enteritis. Otherwise, no acute intra-abdominal or pelvic abnormality. Electronically authenticated by: REBECCA CHADWICK Date: 10/07/2023 20:46 Lab Data Labs: Lab Results 10/07/23 10/07/23 10/07/23 Range/Units 20:16 20:20 21:36 WBC 20.1 H (4.0-11.0) 10^3/uL RBC 4.32 (4.20-5.40) 10^6/uL Hgb 13.0 (12.0-16.0) g/dL Hct 39.0 (36.0-48.0) % MCV 90.3 (81.0-99.0) fL MCH 30.1 (26.7-34.0) pg MCHC 33.3 (29.9-35.2) g/dL RDW 12.5 (11.0-15.0) % Plt Count 314 (150-450) 10^3/uL MPV 10.0 (9.5-13.5) fL Neut % (Auto) 81.3 H (43.0-75.0) % Lymph % (Auto) 11.3 L (20.5-60.0) % [place] % (Auto) 5.3 (1.7-12.0) % Eos % (Auto) 1.2 (0.9-7.0) % Baso % (Auto) 0.3 (0.2-2.0) % Neut # (Auto) 16.4 H (1.4-6.5) 10^3/uL Lymph # (Auto) 2.3 (1.2-3.8) 10^3/uL Beckham # (Auto) 1.1 H (0.3-0.8) 10^3/uL Eos # (Auto) 0.2 (0.0-0.7) 10^3/uL Baso # (Auto) 0.1 (0.0-0.1) 10^3/uL Abs Immat Gran (auto) 0.12 H (0.00-0.03) 10^3/uL Imm/Tot Granulo (auto) 0.6 H (0.0-0.5) % Sodium 129 L (136-145) mmol/L Potassium 3.6 (3.5-5.1) mmol/L Chloride 97 L (98-107) mmol/L Carbon Dioxide 22.5 (21.0-32.0) mmol/L Anion Gap 13.1 BUN 9.0 (7.0-18.0) mg/dL Creatinine 0.69 (0.55-1.02) mg/dL Est GFR ( Amer) >60 (>=60) Est GFR (Non-Af Amer) >60 (>=60) BUN/Creatinine Ratio 13.0 Glucose 223 H (74-106) mg/dL Lactate 3.0 H* (0.4-2.0) mmol/L Calcium 8.6 (8.5-10.1) mg/dL Total Bilirubin 0.2 (0.2-1.0) mg/dL AST 19 (15-37) U/L ALT 19 (14-59) U/L Alkaline Phosphatase 75 (46-116) U/L Total Protein 6.4 (6.4-8.2) g/dL Albumin 3.0 L (3.4-5.0) g/dL Globulin 3.4 g/dL Albumin/Globulin Ratio 0.9 Lipase 39.0 (16.0-77.0) U/L Urine Color Yellow (YELLOW) Urine Clarity Clear (CLEAR) Urine pH 5.5 (5.0-9.0) Ur Specific [place] <=1.005 A (1.005-1.025) Urine Protein Negative (NEG/TRACE) mg/dL Urine Glucose (UA) >=1000 A (NEGATIVE) mg/dL Urine Ketones Trace A (NEGATIVE) mg/dL Urine Occult Blood Trace-i (NEGATIVE) Urine Nitrite Negative (NEGATIVE) Urine Bilirubin Negative (NEGATIVE) Urine Urobilinogen 0.2 (0.2-1.0) EU/dL Ur Leukocyte Esterase Negative (NEGATIVE) Urine RBC 0-2 (0-2) #/HPF Urine WBC 2-5 A (NONE SEEN) #/HPF Ur Squamous Epith Cells Few A (NONE/RARE) #/LPF Urine Crystals None seen (None Seen) #/HPF Urine Bacteria None seen (NONE SEEN) #/HPF Urine Casts None seen (NONE SEEN) #/LPF Urine Mucus None seen (NONE SEEN) Influenza Type A Ag Negative Influenza Type B Ag Negative Discharge Plan Discharge Chief Complaint: Abdominal Pain Clinical Impression: Postoperative abdominal pain, Hyponatremia, Leukocytosis Patient Disposition: [facility] Time of Disposition Decision: 21:54 Discharge Location: [facility] Condition: Fair Mode of Transportation: Private Vehicle
--- OUTSIDE RECORDS SUMMARY | 2023-10-07 19:43 | XMS_ITS | CCD ---
Author Name Unknown Address [address] [place] [address] Organization [facility] Care Team Providers Care Critical Care Physician Name Role Phone Ajit Pettit Primary Care Provider [phone] Ajit Pettit Attending Provider [phone] [facility] Services Primary Care Provider [phone] [facility] Primary Care Provider Ajit Pettit Attending Provider [phone] Kyler Miramontes Unavailable Girish Callaway Unavailable [facility] Primary Care Prov ider CHRISTINA Bergeron Emergency Provider OLEG Pettit Attending Provider [phone] DO Rod Alvarado Emergency Provider MD Jasmin Velázquez Attending Provider [facility] Primary Care Provider [phone] MD Jasmin Velázquez Attending Provider [phone] [facility] Primary Care Provider [phone] AJIT PETTIT Primary Care Physician [facility] Primary Care Prov ider MD Kyler Miramontes S Attending Provider SINDY PettitC Ajit Shelton Attending Provider Joshua SILVEIRA Attending Unavailable Joshua SILVEIRA Attending Unavailable Joshua SILVEIRA Attending Unavailable NONE, XXXX Referring Unavailable Joshua SILVEIRA Admitting Unavailable Joshua SILVEIRA Referring Unavailable Joshua SILVEIRA Attending Unavailable MOE PAVON Referring Unavailable Joshua SILVEIRA Attending Unavailable [facility], Services Primary Care [facility] ider MD Kyler Miramontes Attending Provider Spasic, SALES ESTIMATOR-C Ajit Shelton Attending Provider MARKER ., DR SEPULVEDA Consulting Unavailable MARKER ., DR SEPULVEDA Admitting Unavailable MARKER ., DR SEPULVEDA Attending Unavailable SPASIC, AJIT Primary Care Unavailable SPASIC, AJIT Primary Care Unavailable MARKER ., DR SEPULVEDA Admluis manuel Unavailable MARKER ., DR SEPULVEDA Attending Unavailable MARKER ., DR SEPULVEDA Consulting Unavailable SPASIC, AJIT Primary Care Unavailable AMY MCKEON Admitting Unavailable AMY MCKEON Attending Unavailable AMY MCKEON Consulting Unavailable MISTY ., MAUREEN Consulting Unavailable NON STAFF Primary Care Provider UnavailMD Kyler Pulido Attending Provider [phone] [facility], . Primary Care Provider Spasic, SALES ESTIMATOR-C Ajit Shelton Primary Care Provider Spasic, SALES ESTIMATOR-C Ajit Shelton Attending Provider [facility] Primary Care [facility] ider DO Marty Hinds Attending Provider [phone] Spasiderek, SALES ESTIMATOR-C Ajit Shelton Primary Care Provider [phone] DO Marty Hinds Attending Provider [phone] Ryan Miramontesif S Attending Unavailable Fe, Kyler S Admitting Unavailable [facility] Kyler Miramontes S Attending Unavailable [facility], . Primary Care Unavaila ble Fe, Kyler S Admitting Unavailable Fe, Kyler S Attending Unavailable Fe, Kyler S Admitting Unavailable Spaness Ajit E Primary Care Unavailable Marty Hinds Admitting Unavailable Visccatrina Marty Attending Unavailable Spasic, Aijt E Primary Care Unavailable Fe, Kyler S Admitting Unavailable Fe, Kyler S Attending Unavailable [facility] Primary Care U navailable [facility] Spasic, Ajit E Attending Unavailable Spasic, Ajit E Admitting Unavailable NON STAFF Primary Care Unavailable Sparyanc, Ajit E Attending Unavailable Spasiderek, Ajit E Admitting Unavailable Kyler Miramontes Attending Unavailable Kyler Miramontes Admitting Unavailable Spasic, Ajit E Primary Care Unavailable Spasic, Ajit E Admitting Unavailable [facility] Services Primary Care U navailable Ajit Pettit E Attending Unavailable Visci, Marty Admitting Unavailable Visci, Marty Attending Unavailable Spasic, Ajit E Primary Care Unavailable Visci, Marty Admitting Unavailable Visci, Marty Attending Unavailable Spasic, Ajit E Primary Care Unavailable Visci, Marty Attending Unavailable Visci, Marty Admitting Unavailable Spasic, Ajit E Primary Care Unavailable Unavailable Unavailable Unavailable Allergies Allergy Classification Reported Allergen(s) Allergy Type Date of Onset Reaction(s) Facility Opioid Agonists (1 source) traMADol Drug Allergy 09-24-20 [facility] Serotonin Reuptake Inhibitors (SSRIs) (1 source) Escitalopram Drug Allergy 09-24-20 Difficulty Breathing [facility] (20 sources) Escitalopram; Translations: [escitalopram] Drug Allergy 09-24-20 Difficulty Breathing [facility] (20 sources) traMADol; Translations: [tramadol] Drug Allergy 09-24-20 Seizure, Unknown, [facility] (20 sources) Amitriptyline; Translations: [Amitriptyline] Drug Allergy 05-27-20 [facility] (20 sources) natural latex rubber; Translations: [Latex, Natural Rubber] Allergy to substance 05-27-20 Unknown Reaction, Hives [facility] (20 sources) Sulfamethoxazole; Translations: [sulfamethoxazole] Drug Allergy 05-27-20 [facility] (20 sources) Trimethoprim; Translations: [trimethoprim] Drug Allergy 05-27-20 [facility] (6 sources) Latex; Translations: [Latex] Drug allergy Weal (disorder) [facility] (5 sources) Sulfamethoxazole / Trimethoprim; Translations: [sulfamethoxazole-tr imethoprim] Drug Allergy Unknown (qualifier value) [facility] (1 source) traMADol; Translations: [Ultram] Drug Allergy [facility] (1 source) Sulfamethoxazole / Trimethoprim Drug Allergy [facility] (1 source) Ultra Juancarlos Gold Drug allergy (disorder) [facility] (2 sources) nonoxynol 9; Translations: [nonoxynol 9] Allergy to substance 09-16-20 [facility] Medications Current Medications Medication Drug Class(es) Dates Sig (Normalized) Sig (Original) Tylenol (20 sources) Start: 07-31-2022 Tylenol Oral, Refills(s) 0 Start Date: 07/31/22 Status: Ordered Start: 03-04-2022 take 1 capsule by mo uth twice daily Acetaminophen (Tylenol) 325 mg Capsule Active 325 MG PO Twice daily March 03, 2022 11:00pm Start: 03-04-2022 Acetaminophen (Tylenol) 325 mg Capsule Active 1000 MG PO Twice daily March 04, 2022 12:00am Start: 10-27-2019 acetaminophen Refills(s) 0 Start Date: 10/27/19 Status: Ordered Start: 06-15-2017 End: 04-24-2018 take 2 tablets by mouth every six hours Acetaminophen (Tylenol Extra Strength) 500 mg Tablet Discontinued 1000 MG PO Q6H June 14, 2017 11:00pm April 24, 2018 7:47pm take 1 tablet by saul th every four hours Tylenol 325 MG 1 tablet as needed Orally every 4 hrs PRN Active cariprazine 1.5 mg oral capsule (4 sources) Atypical Antipsychotic Start: 06-30-2023 take 1 capsule by mouth once daily in the morning Cariprazine (Vraylar) 1.5 mg capsule Active 1.5 MG PO Every morning June 29, 2023 11:00pm diazePAM 5 mg oral tablet (20 sources) Benzodiazepine Start: 07-31-2022 take 1 mg by mouth every eight hours Valium 5 mg Tab mg tab(s), Oral, q8hr, Refills(s) 0 Start Date: 07/31/22 Status: Ordered Start: 03-04-2022 take 1 tablet by saul th twice daily Diazepam (Valium) 5 mg Tablet Active 5 MG PO Twice daily March 03, 2022 11:00pm dicyclomine hydrochloride 10 mg oral capsule (14 sources) Anticholinergic Start: 06-30-2023 take 10 mg by mouth twice daily Dicyclomine Active 10 MG PO Twice daily June 29, 2023 11:00pm Start: 06-30-2023 take 10 mg by mouth once daily Dicyclomine Active 10 MG PO Daily June 30, 2023 12:00am take 2 capsules by m outh every eight hours Dicyclomine HCl 10 MG 2 capsules Orally Three times a day uses as needed for IBS Active doxazosin 2 mg oral tablet (10 sources) alpha-Adrenergic Deejay Start: 11-18-2022 take 1 tablet by mouth once daily at bedtime Doxazosin (Cardura) 2 mg tablet Active 2 MG PO Daily at bedtime November 18, 2022 12:00am Start: 11-02-2022 take 1 tablet by saul th once daily doxazosin 2 mg Tab 2 mg = 1 tab(s), Oral, Daily, # 30 tab(s), Refills(s) 3, Pharmacy: [facility] [id number], 166, cm, 11/02/22 10:50:00 EST, Height/Length Dosing, 75.6, kg, 11/02/22 10:50:00 EST, Weight Dosing Start Date: 11/02/22 Status: Ordered 0.5 ml dulaglutide 3 mg/ml auto-injector (10 sources) GLP-1 Receptor Agonist Start: 04-14-2023 Dulaglutide (Trulicity) 1.5 mg/0.5 mL pen injector Active 1.5 MG SUBCUT every week April 13, 2023 11:00pm Wednesday Trulicity Active ergocalciferol 1.25 mg oral capsule (4 sources) Provitamin D2 Compound Start: 06-30-2023 take 10261 [IU] by mouth every week Ergocalciferol (Vitamin D2) Active 74050 UNIT PO every week June 29, 2023 11:00pm ferrous sulfate 325 mg oral tablet (20 sources) Start: 05-18-2022 take 1 tablet by mouth once daily in the morning Ferrous Sulfate (Iron) 325 mg (65 mg iron) Tablet Active 325 MG PO Every morning May 17, 2022 11:00pm Start: 05-18-2022 take 1 tablet by mouth once da owen Ferrous Sulfate (Iron) 325 mg (65 mg iron) Tablet Active 325 MG PO Daily May 18, 2022 12:00am Start: 05-18-2022 take 1 tablet by mouth once da owen Ferrous Sulfate (Iron) 325 mg (65 mg iron) Tablet Active 325 MG PO Daily May 18, 2022 12:00am Start: 05-18-2022 take 1 tablet by mouth once da owen Ferrous Sulfate (Iron) 325 mg (65 mg iron) Tablet Active 325 MG PO Daily May 18, 2022 12:00am Start: 05-18-2022 take 1 tablet by mouth once da owen Ferrous Sulfate (Iron) 325 mg (65 mg iron) Tablet Active 325 MG PO Daily May 18, 2022 12:00am Start: 05-18-2022 take 1 tablet by mouth once da owen Ferrous Sulfate (Iron) 325 mg (65 mg iron) Tablet Active 325 MG PO Daily May 18, 2022 12:00am gabapentin 800 mg oral tablet (20 sources) Anti-epileptic Agent Start: 07-31-2022 take 1 mg by mouth three times daily gabapentin 800 mg Tab mg tab(s), Oral, TID, Refills(s) 0 Start Date: 07/31/22 Status: Ordered Start: 06-08-2017 take 1 mg by mouth t hree times daily gabapentin 600 mg Tab mg tab(s), Oral, TID, Refills(s) 0 Start Date: 10/27/19 Status: Ordered Start: 06-08-2017 take 800 mg by mouth four times daily Gabapentin Active 800 MG PO Four times daily June 07, 2017 11:00pm Start: 06-08-2017 take 800 mg by mouth three times daily Gabapentin Active 800 MG PO Three times daily June 08, 2017 12:00am ketorolac tromethamine 10 mg oral tablet (16 sources) Nonsteroidal Anti-inflammatory Drug, Cyclooxygenase Inhibitor Start: 04-14-2023 take 10 mg by mouth every six hours Ketorolac Active 10 MG PO Q6H April 13, 2023 11:00pm Toradol Active LORazepam 0.5 mg oral tablet (20 sources) Benzodiazepine Start: 05-18-2022 take 0.5 mg by mouth once daily Lorazepam Active 0.5 MG PO Daily May 17, 2022 11:00pm Start: 05-18-2022 Lorazepam Acti ve 0.5 MG PO As Directed May 18, 2022 12:00am Start: 05-18-2022 Lorazepam Acti ve 0.5 MG PO As Directed May 18, 2022 12:00am Start: 05-18-2022 Lorazepam Acti ve 0.5 MG PO As Directed May 18, 2022 12:00am Start: 05-18-2022 Lorazepam Acti ve 0.5 MG PO As Directed May 18, 2022 12:00am Start: 05-18-2022 Lorazepam Acti ve 0.5 MG PO As Directed May 18, 2022 12:00am Start: 05-18-2022 Lorazepam Acti ve 0.5 MG PO As Directed May 18, 2022 12:00am Start: 10-27-2019 take 2 tablets by mo [facility] three times daily LORazepam 0.5 mg Tab mg tab(s), Oral, TID, Refills(s) 0 Start Date: 10/27/19 Status: [facility] LORazepam 0.5 MG 1 tablet as needed Orally every 6 hrs for panic attacks, as needed; three to four times per month Active meclizine hydrochloride 25 m g oral tablet (20 sources) Antiemetic Start: 05-18-2022 Meclizine Acti ve 25 MG PO Daily May 17, 2022 11:00pm every 6-8 hours prn. 1/2 to 1 Start: 05-18-2022 Meclizine Acti ve 25 MG PO Daily May 18, 2022 12:00am every 6-8 hours prn. 1/2 to 1 Start: 05-18-2022 Meclizine Acti ve 25 MG PO Daily May 18, 2022 12:00am every 6-8 hours prn. 1/2 to 1 Start: 05-18-2022 Meclizine Acti ve 25 MG PO Daily May 18, 2022 12:00am every 6-8 hours prn. 1/2 to 1 Start: 05-18-2022 Meclizine Acti ve 25 MG PO Daily May 18, 2022 12:00am every 6-8 hours prn. 1/2 to 1 Start: 05-18-2022 Meclizine Acti ve 25 MG PO Daily May 18, 2022 12:00am every 6-8 hours prn. 1/2 to 1 melatonin 10 mg oral tablet (20 sources) Start: 03-04-2022 take 10 mg by mouth once daily at bedtime Melatonin Active 10 MG PO Daily at bedtime March 03, 2022 11:00pm Start: 10-27-2019 take 1 tablet by saul th once daily at bedtime as needed melatonin 1 mg oral tablet 1 mg = 1 tab(s), Oral, Once a day (at bedtime), PRN for insomnia, # 90 tab(s), Refills(s) 0 Start Date: 10/27/19 Status: Ordered Start: 10-27-2019 take 1 tablet by saul th once daily at bedtime as needed melatonin 5 mg oral tablet 5 mg = 1 tab(s), Oral, Once a day (at bedtime), PRN for insomnia, # 60 tab(s), Refills(s) 0 Start Date: 10/27/19 Status: Ordered Melatonin 5 MG 2 in evening Orally Once a day Not-Taking meloxicam 15 mg oral tablet (20 sources) Nonsteroidal Anti-inflammatory Drug Start: 05-27-2022 take 15 mg by mouth once daily in the morning Meloxicam Active 15 MG PO Every morning May 26, 2022 11:00pm Start: 05-27-2022 take 15 mg by mouth once daily Meloxicam Active 15 MG PO Daily May 27, 2022 12:00am Start: 05-27-2022 take 15 mg by mouth once daily Meloxicam Active 15 MG PO Daily May 27, 2022 12:00am Start: 05-27-2022 take 15 mg by mouth once daily Meloxicam Active 15 MG PO Daily May 27, 2022 12:00am Start: 05-27-2022 take 15 mg by mouth once daily Meloxicam Active 15 MG PO Daily May 27, 2022 12:00am Start: 05-27-2022 take 15 mg by mouth once daily Meloxicam Active 15 MG PO Daily May 27, 2022 12:00am Start: 06-08-2017 End: 05-18-2022 take 15 mg by mouth once daily Meloxicam Discontinued 15 MG PO Daily June 07, 2017 11:00pm May 18, 2022 10:27am metFORMIN hydrochloride 500 mg oral tablet (20 sources) Biguanide Start: 05-18-2022 take 500 mg by mouth twice daily Metformin Active 500 MG PO Twice daily May 17, 2022 11:00pm Start: 05-18-2022 take 500 mg by mouth twice merrick ly Metformin Active 500 MG PO Twice daily May 18, 2022 12:00am Start: 05-18-2022 take 500 mg by mouth twice merrick ly Metformin Active 500 MG PO Twice daily May 18, 2022 12:00am Start: 05-18-2022 take 500 mg by mouth twice merrick ly Metformin Active 500 MG PO Twice daily May 18, 2022 12:00am Start: 05-18-2022 take 500 mg by mouth twice merrick ly Metformin Active 500 MG PO Twice daily May 18, 2022 12:00am Start: 05-18-2022 take 500 mg by mouth twice merrick ly Metformin Active 500 MG PO Twice daily May 18, 2022 12:00am Multi complete (4 sources) Start: 10-27-2019 Multi complete Multi complete Start Date: 10/27/19 Status: Ordered Multivitamin preparation (20 sources) Start: 06-08-2017 take 1 tablet by mouth once daily Multivitamin Active 1 TAB PO Daily June 08, 2017 3:28am Start: 06-08-2017 take 1 tablet by saul th once daily Multivitamin Active 1 TAB PO Daily June 08, 2017 2:28am Start: 06-08-2017 take 1 tablet by saul th once daily in the morning Multivitamin Active 1 TAB PO Every morning June 07, 2017 11:00pm Start: 06-08-2017 take 1 tablet by saul th once daily in the morning Multivitamin Active 1 TAB PO Every morning June 08, 2017 12:00am Start: 06-08-2017 take 1 tablet by saul th once daily Multivitamin Active 1 TAB PO Daily June 07, 2017 11:00pm Start: 06-08-2017 take 1 tablet by saul th once daily Multivitamin Active 1 TAB PO Daily June 08, 2017 12:00am sertraline 100 mg oral tablet (20 sources) Serotonin Reuptake Inhibitor Start: 03-04-2022 take 1 tablet by mouth once daily at bedtime Sertraline (Zoloft) 100 mg Tablet Active 100 MG PO Daily at bedtime March 03, 2022 11:00pm Start: 03-04-2022 Sertraline (Zo loft) 100 mg Tablet Active 50 MG PO Daily March 04, 2022 12:00am Start: 10-27-2019 take 1 tablet by once daily sertraline 50 mg Tab 50 mg = 1 tab(s), Oral, Daily, # 90 tab(s), Refills(s) 0 Start Date: 10/27/19 Status: Ordered simvastatin 5 mg oral tablet (20 sources) HMG-CoA Reductase Inhibitor Start: 07-31-2022 take 1 mg by mouth once daily at bedtime simvastatin 5 mg Tab mg tab(s), Oral, Once a day (at bedtime), Refills(s) 0 Start Date: 07/31/22 Status: Ordered Start: 05-18-2022 take 20 mg by mouth once daily at bedtime Simvastatin Active 20 MG PO Daily at bedtime May 17, 2022 11:00pm Start: 05-18-2022 take 20 mg by mouth once daily Simvastatin Active 20 MG PO Daily May 18, 2022 12:00am Start: 05-18-2022 take 20 mg by mouth once daily Simvastatin Active 20 MG PO Daily May 18, 2022 12:00am Start: 05-18-2022 take 20 mg by mouth once daily Simvastatin Active 20 MG PO Daily May 18, 2022 12:00am Start: 05-18-2022 take 20 mg by mouth once daily Simvastatin Active 20 MG PO Daily May 18, 2022 12:00am Start: 05-18-2022 take 20 mg by mouth once daily Simvastatin Active 20 MG PO Daily May 18, 2022 12:00am Simvastatin Acti ve Sulfamethoxazole-TMP DS (4 sources) Sulfamethoxazole -TMP DS Active tiZANidine 4 mg oral tablet (20 sources) Central alpha-2 Adrenergic Agonist Start: 2019 take 1 mg by mouth every eight hours tiZANidine 4 mg Tab mg tab(s), Oral, q8hr, Refills(s) 0 Start Date: 10/27/19 Status: Ordered Start: 06-08-2017 take 8 mg by mouth e very eight hours Tizanidine Active 8 MG PO Q8H June 07, 2017 11:00pm Start: 06-08-2017 take 6 mg by mouth e very eight hours Tizanidine Active 6 MG PO Q8H June 08, 2017 12:00am take 1 capsule by [facility] every eight hours tiZANidine HCl 6 MG 1 capsule as needed Orally Three times a day 2200; can take another early afternoon Active 24 hr divalproex sodium 250 mg extended release oral tablet (20 sources) Mood Stabilizer, Anti-epileptic Agent Start: 10-27-2019 take 1 mg by mouth once daily divalproex sodium 250 mg ER Tab mg tab(s), Oral, Daily, Refills(s) 0 Start Date: 10/27/19 Status: Ordered Start: 10-27-2019 take 1 mg by mouth once daily divalproex sodium 500 mg ER Tab mg tab(s), Oral, Daily, Refills(s) 0 Start Date: 10/27/19 Status: Ordered Start: 09-21-2018 take 1 tablet by saul once daily Divalproex (Depakote) 250 mg Tablet,Delayed Release (Dr/Ec) Active 250 MG PO every day at noon September 21, 2018 12:00am Start: 03-13-2018 take 2 tablets by [facility] twice daily Divalproex (Depakote) 250 mg Tablet,Delayed Release (Dr/Ec) Active 500 MG PO Twice daily March 12, 2018 11:00pm Start: 03-13-2018 take 2 tablets by [facility] once daily Divalproex (Depakote) 250 mg Tablet,Delayed Release (Dr/Ec) Active 500 MG PO Daily March 13, 2018 12:00am take 1 tablet by [facility] every twelve hours Divalproex Sodium 250 MG 1 tablet Orally Twice a day Active Vitamin D (4 sources) Start: 10-27-2019 Vitamin D Oral , Refills(s) 0 Start Date: 10/27/19 Status: Ordered Completed/Discontinued Medications Medication Drug Class(es) Dates Sig (Normalized) Sig (Original) acetaminophen 325 mg / HYDROcodone bitartrate 5 mg oral tablet (20 sources) Opioid Agonist Start: 09-29-2018 End: 05-18-2022 take 1 tablet by mouth every six hours Hydrocodone-Acetami nophen (Whitman) 5-325 mg tablet Discontinued 1 TAB PO Q6H 7 2 September 29, 2018 May 18, 2022 10:27am Start: 03-13-2018 End: 04-24-2018 take 1 tablet by mouth every four to six hours Hydrocodone-Acetaminophen (Whitman) 5-325 mg tablet Discontinued 1 TAB PO EVERY 4-6 HOURS March 13, 2018 April 24, 2018 7:47pm Albuterol (20 sources) beta2-Adrenergic Agonist Start: 12-19-2017 End: 02-12-2018 take 1 puff(s) by inhalation every four to six hours Albuterol Sulfate Discontinued 2 PUFF INHALATION EVERY 4-6 HOURS December 19, 2017 10:53pm February 12, 2018 6:44pm Start: 12-19-2017 End: 02-12-2018 take 1 puff(s) by inhalation every four to six hours Albuterol Sulfate Discontinued 2 PUFF INHALATION EVERY 4-6 HOURS December 19, 2017 9:53pm February 12, 2018 5:44pm Start: 12-19-2017 End: 02-12-2018 take 1 puff(s) by inhalation every four to six hours Albuterol Sulfate Discontinued 2 PUFF INHALATION EVERY 4-6 HOURS December 18, 2017 11:00pm February 12, 2018 5:44pm Start: 06-15-2017 End: 11-22-2017 Albuterol Sulfate Discontinu ed 2 INH INHALATION Q6H 8 June 15, 2017 4:58am November 22, 2017 11:46pm administer with spacer Start: 06-15-2017 End: 11-22-2017 Albuterol Sulfate Discontinu ed 2 INH INHALATION Q6H 8 June 15, 2017 3:58am November 22, 2017 10:46pm administer with spacer Start: 06-15-2017 End: 11-22-2017 Albuterol Sulfate Discontinu ed 2 INH INHALATION Q6H June 14, 2017 11:00pm November 22, 2017 10:46pm administer with spacer amoxicillin 500 mg oral capsule (20 sources) Penicillin-class Antibacterial Start: 03-13-2018 End: 04-24-2018 take 500 mg by mouth every eight hours Amoxicillin Discontinued 500 MG PO Q8H March 12, 2018 11:00pm April 24, 2018 7:47pm azithromycin 250 mg oral tablet (20 sources) Macrolide Antimicrobial Start: 12-16-2017 End: 12-20-2017 Azithromycin Discontinued 250 MG PO Daily 4 4 December 15, 2017 11:00pm December 19, 2017 11:04pm start on day 2 of therapy benzonatate 100 mg oral capsule (20 sources) Non-narcotic Antitussive Start: 12-20-2017 End: 02-12-2018 take 1 capsule by mouth every eight hours Benzonatate (Tessalon Perles) 100 mg capsule Discontinued 100 MG PO Q8H December 19, 2017 11:00pm February 12, 2018 5:44pm cephalexin 500 mg oral capsule (4 sources) Cephalosporin Antibacterial Start: 07-31-2022 take 1 tablet by mouth every twelve hours Keflex 500 mg Cap 500 mg = 1 cap(s), Oral, Daily, Take 1 tablet day before procedure, and then 1 tablet 12 hrs later, # 2 cap(s), Refills(s) 0, Pharmacy: [facility] [id number] Start Date: 07/31/22 Status: Ordered ciprofloxacin 500 mg oral tablet (20 sources) Quinolone Antimicrobial Start: 09-29-2018 End: 03-04-2022 take 500 mg by mouth twice daily Ciprofloxacin Hcl Discontinued 500 MG PO Twice daily September 29, 2018 12:00am March 04, 2022 7:36am codeine phosphate 2 mg/ml / promethazine hydrochloride 1.25 mg/ml oral solution (20 sources) Opioid Agonist, Phenothiazine Start: 06-15-2017 End: 11-22-2017 take 1 mL by mouth every four to six hours Promethazine-Code ine Discontinued 5 ML PO EVERY 4-6 HOURS June 14, 2017 11:00pm November 22, 2017 10:46pm hydrocortisone 10 mg/ml / neomycin 3.5 mg/ml / polymyxin b [id number] unt/ml otic suspension (20 sources) Aminoglycoside Antibacterial, Polymyxin-class Antibacterial, Corticosteroid Start: 09-21-2018 End: 10-01-2018 Neomycin-Polymyxi n-Hc Discontinued 4 DROPS OTIC Q6H 15 September 21, 2018 12:00am October 01, 2018 12:02am ibuprofen 600 mg oral tablet (2 sources) Nonsteroidal Anti-inflammatory Drug Start: 07-13-2023 End: 09-16-2023 Ibuprofen Discontinued 600 MG PO Every 6 hours July 12, 2023 11:00pm September 16, 2023 7:57am do not exceed 4 doses in a 24 hour period ofloxacin 3 mg/ml otic solution (20 sources) Quinolone Antimicrobial Start: 09-29-2018 End: 10-06-2018 Ofloxacin Discontinued 10 DROPS OTIC Twice daily 10 September 29, 2018 12:00am October 06, 2018 12:01am oxymetazoline hydrochloride 0.5 mg/ml nasal spray (20 sources) Start: 11-22-2017 End: 11-25-2017 Oxymetazoline (Afrin (Oxymetazoline)) 0.05 % spray,non-aerosol Discontinued 2 SPRAY INTRANASAL Twice daily November 22, 2017 12:00am November 25, 2017 12:06am predniSONE 20 mg oral tablet (20 sources) Start: 12-16-2017 End: 12-21-2017 take 20 mg by mouth twice daily at mealtime Prednisone Discontinued 20 MG PO Twice daily 10 December 15, 2017 11:00pm December 20, 2017 11:04pm administer with food or milk Start: 06-15-2017 End: 11-22-2017 take 60 mg by mouth once daily at mealtime Prednisone Discontinued 60 MG PO Daily June 14, 2017 11:00pm November 22, 2017 10:46pm administer with food or milk promethazine hydrochloride 12.5 mg oral tablet (20 sources) Phenothiazine Start: 03-13-2018 End: 04-24-2018 take 1 dose by mouth every four hours at dinner Promethazine Discontinued 12.5 MG PO Q6H March 12, 2018 11:00pm April 24, 2018 7:47pm 3 doses/day;do not give 3rd dose after evening meal or w/in 4hr of bedtime Problems Active Problems Problem Classification Problem Date Documented Date Episodic/Chronic Acute bronchitis (20 sources) Acute bronchitis; Translations: [Acute bronchitis, unspecified] 12-20-2017 Episodic Anxiety disorders (8 sources) Anxiety; Translations: [Panic disorder] 10-27-2019 Chronic Biliary tract disease (4 sources) Gallstone 10-27-2019 Episodic Cancer of cervix (4 sources) Malignant tumor of cervix 10-27-2019 Chronic Cancer of cervix (4 sources) History of malignant neoplasm of cervix 10-27-2019 Episodic Chronic obstructive pulmonary disease and bronchiectasis (20 sources) Bronchitis; Translations: [Bronchitis, not specified as acute or chronic] 12-16-2017 Episodic Deficiency and other anemia (4 sources) Anemia 10-27-2019 Episodic Diabetes mellitus with complications (4 sources) Type 2 diabetes mellitus with hyperglycemia; Translations: [TYPE 2 DM W/HYPERGLYCEMIA] Onset: 01-29-2023 Chronic Diabetes mellitus without complication (2 sources) Type 2 diabetes mellitus without complications; Translations: [TYPE 2 DM WITHOUT COMPLICATIONS] Onset: 11-05-2022 Chronic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 foci of papillary syncytial change per reparative effect of chronic breakdown are also randomly observed, therefore also suggesting sampling of the persistent late phase type secretory endometrium, otherwise without any obvious hyperplasia or atypia identified - In addition, at least 3 large fragments of benign endometrial polyp are also recognized, and also without any secondary hyperplasia or atypia noticeable Clinical Information Polyps, DUB Gross Description Received in formalin labeled with the patient's name, date of and endometrial curettings is a 3.7 x 2.2 x 0.5 cm aggregate of red-brown tissue. Entirely submitted in one cassette labeled A1. Specimen: [id number] Received: 07/13/23 Status: BLUE [place] Num: [id number] Spec Type: Surgical Subm Dr: Marty Hinds DO Tissues: A Endometrium - Curettings (EMC) Procedures: HE/2, Gross/Micro L4 Patient: Rachel Zuñiga [id number] (Continued) Specimen: [id number] Received: 07/13/23 (Continued) Signed (signature on file) Philomena Grimm MD 07/14/23 1608 Specimen: [id number] Received: 07/13/23 Status: BLUE [place] Num: [id number] Spec Type: Surgical Subm Dr: Marty Hinds DO Tissues: A Endometrium - Curettings (EMC) Procedures: ÁNGEL/Marely, Vik/Claude L4 Patient: Rachel Zuñiga [id number] (Continued) Specimen: [id number] Received: 07/13/23 (Continued) Microscopic Description Two H E slides reviewed. The microscopic examination confirms the diagnosis. CPT Codes 25215 Specimen: [id number] Received: 07/13/23 Status: BLUE Jose Num: [id number] Spec Type: Surgical Subm Dr: Marty Hinds DO Tissues: A Endometrium - Curettings (EMC) Procedures: HE/Marely, Gross/Micro L4 Patient: Rachel Zuñiga [id number] (Continued) Signed (signature on file) Chin-Moses Grimm MD 07/14/23 1608 Normal [facility] No Panel InformationOrdered By: Marty Hinds on 07-13-2023 Bedside Glucose Comment Glu2: cleaned meter [facility] Basic Metabolic Panelon 09- Anion gap [Moles/Vol] 14.6 mmol/L Normal 6.0-15.0 [facility] Comment on above: Performed By: #### B MP #### [facility] [address] [place] [address] Calcium [Mass/Vol] 9.2 mg/dL Normal 8.6-10.3 [facility] Comment on above: Result Comment: PERF ORMED BY: [place] [address] PATHOLOGIST NET ARCHITECT RIDGE HUERTA M.D. Performed By: #### B MP #### [facility] [address] [place] [address] [place] Chloride [Moles/Vol] 100 mmol/L Normal 98-107 [facility] Comment on above: Performed By: #### B MP #### [facility] [address] [place] [address] [place] CO2 [Moles/Vol] 26.7 mmol/L Normal 21.0-31.0 [facility] Comment on above: Performed By: #### B MP #### [facility] [address] [place] [address] [place] Creatinine [Mass/Vol] 0.54 mg/dL Low 0.60-1.20 [facility] Comment on above: Performed By: #### B MP #### [facility] [address] [place] [address] [place] GFR/1.73 sq M.predicted MDRD (S/P/Bld) [Vol rate/Area] mL/min/{1.73_m2} Normal [facility] Comment on above: Performed By: #### B MP #### [facility] [address] Glucose [Mass/Vol] 134 mg/dL High 70-100 [facility] Comment on above: Result Comment: [place] Glucose Reference Range is dependent on time and content of last meal. Glucose of more than 200 mg/dL in a nonstressed, ambulatory subject supports the diagnosis of Diabetes Mellitus. ADA recommended reference range Performed By: #### B MP #### [facility] [address] Potassium [Moles/Vol] 4.3 mmol/L Normal 3.5-5.1 [facility] Comment on above: Performed By: #### B MP #### [facility] [address] Sodium [Moles/Vol] 137 mmol/L Normal 136-145 [facility] Comment on above: Performed By: #### B MP #### [facility] [address] Urea nitrogen [Mass/Vol] 11 mg/dL Normal 7-25 [facility] Comment on above: Performed By: #### B MP #### [facility] [address] Basophils Auto (Bld) [#/Vol] Ordered By: Marty Hinds on 06-30-2023 Basophils (Bld) [#/Vol] 0.1 10*3/uL 0.0-0.2 [facility] Basophils/100 WBC Auto (Bld) Ordered By: Marty Hinds on 06-30-2023 Basophils/100 WBC (Bld) 0.7 % . F [facility] Calcium [Mass/volume] in Ser um or PlasmaOrdered By: Marty Hinds on 06-30-2023 Calcium [Mass/Vol] 9.2 mg/dL 8.6-10.3 [facility] Carbon dioxide, total [Moles /volume] in Serum or PlasmaOrdered By: Marty Hinds on 06-30-2023 CO2 [Moles/Vol] 26.7 mmol/L 21.0-31.0 [facility] Chloride [Moles/volume] in S alissa or PlasmaOrdered By: Marty Hinds on 06-30-2023 Chloride [Moles/Vol] 100 mmol/L 98-107 [facility] Complete Blood Count Auto Di ffon 06-30-2023 Basophils (Bld) [#/Vol] 0.1 10*3/uL Normal 0.0-0.2 [facility] Comment on above: Result Comment: PERF ORMED BY: [place] [address] PATHOLOGIST NET ARCHITECT RIDGE HUERTA M.D. Performed By: #### C BC, LIPID, FE PRO, CMP, TSH3 wRFLX #### [facility] [address] [place] [address] Basophils/100 WBC (Bld) 0.7 % Normal . F [facility] Comment on above: Performed By: #### C BC, LIPID, FE PRO, CMP, TSH3 wRFLX #### [facility] [address] [place] [address] [place] Eosinophils (Bld) [#/Vol] 0.1 10*3/uL Normal 0.0-0.45 [facility] Comment on above: Performed By: #### C BC, LIPID, FE PRO, CMP, TSH3 wRFLX #### [facility] [address] [place] [address] Eosinophils/100 WBC (Bld) 0.4 % Normal . [facility] Comment on above: Performed By: #### C BC, LIPID, FE PRO, CMP, TSH3 wRFLX #### [facility] [address] Erythrocyte distribution width (RBC) [Ratio] 13.3 % Normal 11.9-15.3 [facility] Comment on above: Performed By: #### C BC, LIPID, FE PRO, CMP, TSH3 wRFLX #### [facility] [address] [place] [address] Hematocrit (Bld) [Volume fraction] 38.9 % Normal 34.0-46.4 [facility] Comment on above: Performed By: #### C BC, LIPID, FE PRO, CMP, TSH3 wRFLX #### [address] Hemoglobin (Bld) [Mass/Vol] 13.0 g/dL Normal 11.8-15.4 [facility] Comment on above: Performed By: #### C BC, LIPID, FE PRO, CMP, TSH3 wRFLX #### [address] Lymphocytes (Bld) [#/Vol] 4.3 10*3/uL Normal 1.00-4.8 [facility] Comment on above: Performed By: #### C BC, LIPID, FE PRO, CMP, TSH3 wRFLX #### [address] Lymphocytes/100 WBC (Bld) 27.8 % Normal . [facility] Comment on above: Performed By: #### C BC, LIPID, FE PRO, CMP, TSH3 wRFLX #### [address] MCH (RBC) [Entitic mass] 30.0 pg Normal 24.7-34.3 [facility] Comment on above: Performed By: #### C BC, LIPID, FE PRO, CMP, TSH3 wRFLX #### [address] MCV (RBC) [Entitic vol] 89.6 fL Normal 80-[address] [facility] Comment on above: Performed By: #### C BC, LIPID, FE PRO, CMP, TSH3 wRFLX #### [address] Mean Corpuscular HGB Conc 33.5 g/dL Normal 32.0-35.0 [facility] Comment on above: Performed By: #### C BC, LIPID, FE PRO, CMP, TSH3 wRFLX #### [address] Monocytes (Bld) [#/Vol] 1.2 10*3/uL High 0.0-0.8 [facility] Comment on above: Performed By: #### C BC, LIPID, FE PRO, CMP, TSH3 wRFLX #### [facility] [address] Monocytes/100 WBC (Bld) 7.5 % Normal . F [facility] Comment on above: Performed By: #### C BC, LIPID, FE PRO, CMP, TSH3 wRFLX #### [address] Neutrophils (Bld) [#/Vol] 9.8 10*3/uL High 1.8-7.7 [facility] Comment on above: Performed By: #### C BC, LIPID, FE PRO, CMP, TSH3 wRFLX #### [address] Neutrophils/100 WBC (Bld) 63.6 % Normal . [facility] Comment on above: Performed By: #### C BC, LIPID, FE PRO, CMP, TSH3 wRFLX #### [facility] [address] [place] [address] NRBC% 0.0 /100{WBC} Normal 0-0.5 [facility] Comment on above: Performed By: #### C BC, LIPID, FE PRO, CMP, TSH3 wRFLX #### [address] Platelet mean volume (Bld) [Entitic vol] 7.9 fL Normal 6.3-10.7 [facility] Comment on above: Performed By: #### C BC, LIPID, FE PRO, CMP, TSH3 wRFLX #### [place] [address] [place] Platelets (Bld) [#/Vol] 275 10*3/uL Normal 150-450 [facility] Comment on above: Performed By: #### C BC, LIPID, FE PRO, CMP, TSH3 wRFLX #### [address] [address] [place] RBC (Bld) [#/Vol] 4.34 10*6/uL Normal 3.60-5.00 [facility] Comment on above: Performed By: #### C BC, LIPID, FE PRO, CMP, TSH3 wRFLX #### [facility] [address] WBC (Bld) [#/Vol] 15.4 10*3/uL High 3.8-11.6 [facility] Comment on above: Performed By: #### C BC, LIPID, FE PRO, CMP, TSH3 wRFLX #### [facility] [address] Creatinine [Mass/volume] in Serum or PlasmaOrdered By: Marty Hinds on 06-30-2023 Creatinine [Mass/Vol] 0.54 mg/dL 0.60-1.20 [facility] ECG 12 lead ECGon 06-30-2023 ECG 12 lead ECG [facility] [place] [address] [place] [address] Electrocardiograph Report Signed Patient: Rachel Zuñiga MR#: [id number] 1 : 1980 Acct:[id number] Age/Sex: 43 / F ADM Date: 06/30/23 Loc: Room: Type: [facility] Attending Dr: Marty Hinds DO Ordering Provider: Marty Hinds DO Date of Service: 06/30/23 ECG/ECG 12 lead ECG: surgery 07/13 Copies to: Test Reason : Blood Pressure : / mmHG Vent. Rate : 083 BPM Atrial Rate : 083 BPM P-R Int : 162 ms QRS Dur : 072 ms QT Int : 360 ms P-R-T Axes : 061 021 008 degrees QTc Int : 423 ms Normal sinus rhythm Normal ECG When compared with ECG of 16-APR-2019 22:29, No significant change was found Confirmed by VAMSI OSPINA MD ([id number]) on 07/02/2023 8:34:35 AM Referred By: KALEB Electronically Signed By:VAMSI OSPINA MD Transcribed By: MUS Signed By Vamsi Ospina MD 0834 Normal [facility] Eosinophils Auto (Bld) [#/Vo l]Ordered By: Marty Hinds on 06-30-2023 Eosinophils (Bld) [#/Vol] 0.1 10*3/uL 0.0-0.45 [facility] Eosinophils/100 WBC Auto (Bl d)Ordered By: Marty Hinds on 06-30-2023 Eosinophils/100 WBC (Bld) 0.4 % . [facility] Erythrocyte distribution wid th Auto (RBC) [Ratio]Ordered By: Marty Hinds on 06-30-2023 Erythrocyte distribution width (RBC) [Ratio] 13.3 % 11.9-15.3 [facility] Glucose [Mass/volume] in Ser um or PlasmaOrdered By: Marty Hinds on 06-30-2023 Glucose [Mass/Vol] 134 mg/dL 70-100 [facility] Comment on above: ADA recommended refe rence rangeRandom Glucose Reference Range is dependent on time and content of last meal. Glucose of more than 200 mg/dL in a nonstressed, ambulatory subject supports the diagnosis of Diabetes Mellitus. Hematocrit Auto (Bld) [Volum e fraction]Ordered By: Marty Hinds on 06-30-2023 Hematocrit (Bld) [Volume fraction] 38.9 % 34.0-46.4 [facility] Hemoglobin [Mass/volume] in BloodOrdered By: Marty Hinds on 06-30-2023 Hemoglobin (Bld) [Mass/Vol] 13.0 g/dL 11.8-15.4 [facility] Leukocytes [#/volume] correc cherie for nucleated erythrocytes in Blood by Automated counOrdered By: Marty Hinds on 06-30-2023 WBC corrected for nucl RBC Auto (Bld) [#/Vol] 15.4 10*3/uL 3.8-11.6 [facility] Lymphocytes Auto (Bld) [#/Vo l]Ordered By: Marty Hinds on 06-30-2023 Lymphocytes (Bld) [#/Vol] 4.3 10*3/uL 1.00-4.8 [facility] Lymphocytes/100 WBC Auto (Bl d)Ordered By: Marty Hinds on 06-30-2023 Lymphocytes/100 WBC (Bld) 27.8 % . [facility] MCH Auto (RBC) [Entitic mass ]Ordered By: Marty Hinds on 06-30-2023 MCH (RBC) [Entitic mass] 30.0 pg 24.7-34.3 [facility] MCHC Auto (RBC) [Mass/Vol]Or dered By: Marty Hinds on 06-30-2023 MCHC (RBC) [Mass/Vol] 33.5 g/dL 32.0-35.0 [facility] MCV Auto (RBC) [Entitic vol] Ordered By: Marty Hinds on 06-30-2023 MCV (RBC) [Entitic vol] 89.6 fL 80-[address] [facility] Monocytes Auto (Bld) [#/Vol] Ordered By: Marty Hinds on 06-30-2023 Monocytes (Bld) [#/Vol] 1.2 10*3/uL 0.0-0.8 [facility] Monocytes/100 WBC Auto (Bld) Ordered By: Marty Hinds on 06-30-2023 Monocytes/100 WBC (Bld) 7.5 % . F [facility] Neutrophils Auto (Bld) [#/Vo l]Ordered By: Marty Hinds on 06-30-2023 Neutrophils (Bld) [#/Vol] 9.8 10*3/uL 1.8-7.7 [facility] Neutrophils/100 WBC Auto (Bl d)Ordered By: Marty Hinds on 06-30-2023 Neutrophils/100 WBC (Bld) 63.6 % . [facility] No Panel InformationOrdered By: Marty Hinds on 06-30-2023 Estimated GFR (CKD-EPI) > 60.0 mL/Min [facility] Creatinine Clearance (Chem N/A [facility] Nucleated erythrocytes [Pres ence] in Blood by Automated countOrdered By: Marty Hinds on 06-30-2023 Nucleated RBC Auto Ql (Bld) 0.0 /100{WBC} 0-0.5 [facility] PST Type and Screenon 2022 ABO and Rh group Nom (Bld) Blood group A Rh(D) positive Normal [facility] Comment on above: Order Comment: Date of Surgery: [id number] Result Comment: PERF ORMED BY: [facility] [place] [address] PATHOLOGIST NET ARCHITECT RIDGE HUERTA M.D. Platelet mean volume Auto (B ld) [Entitic vol]Ordered By: Marty Hinds on 06-30-2023 Platelet mean volume (Bld) [Entitic vol] 7.9 fL 6.3-10.7 [facility] Platelets Auto (Bld) [#/Vol] Ordered By: Marty Hinds on 06-30-2023 Platelets (Bld) [#/Vol] 275 10*3/uL 150-450 [facility] Potassium [Moles/volume] in Serum or PlasmaOrdered By: Marty Hinds on 06-30-2023 Potassium [Moles/Vol] 4.3 mmol/L 3.5-5.1 [facility] RBC Auto (Bld) [#/Vol]Ordere d By: Marty Hinds on 06-30-2023 RBC (Bld) [#/Vol] 4.34 10*6/uL 3.60-5.00 [facility] Serum or plasma anion gap de terminationOrdered By: Marty Hinds on 06-30-2023 Anion gap [Moles/Vol] 14.6 mmol/L 6.0-15.0 [facility] Sodium [Moles/volume] in Ser um or PlasmaOrdered By: Marty Hinds on 06-30-2023 Sodium [Moles/Vol] 137 mmol/L 136-145 [facility] Urea nitrogen [Mass/volume] in Serum or PlasmaOrdered By: Marty Hinds on 06-30-2023 Urea nitrogen [Mass/Vol] 11 mg/dL 7-25 [facility] WBC Auto (Bld) [#/Vol]Ordere d By: Marty Hinds on 06-30-2023 WBC (Bld) [#/Vol] 15.4 10*3/uL 3.8-11.6 [facility] HCG ( test) IA.rapi d Ql (U)Ordered By: Kyler Miramontes on 05-05-2023 HCG ( test) Ql (U) Negative [facility] HCG,Urineon 05-05-2023 Beta HCG ( test) Ql (U) Negative Normal [facility] Comment on above: Result Comment: PERF ORMED BY: [facility] [address] [place] [address] PATHOLOGIST NET ARCHITECT RIDGE HUERTA M.D. Performed By: #### C BC, LIPID, FE PRO, CMP, TSH3 wRFLX #### [facility] [address] Alanine aminotransferase [En zymatic activity/volume] in Serum or PlasmaOrdered By: Ajit Pettit on 05-04-2023 ALT [Catalytic activity/Vol] 17 U/L 7-52 [facility] Albumin [Mass/volume] in Ser um or Plasma by Bromocresol green (BCG) dye binding methoOrdered By: Ajit Pettit on 05-04-2023 Albumin BCG dye [Mass/Vol] 4.4 g/dL 3.5-5.7 [facility] Alkaline phosphatase [Enzyma tic activity/volume] in Serum or PlasmaOrdered By: Ajit Pettit on 05-04-2023 ALP [Catalytic activity/Vol] 55 U/L 34-104 [facility] Aspartate aminotransferase [ Enzymatic activity/volume] in Serum or PlasmaOrdered By: Ajit Pettit on 05-04-2023 AST [Catalytic activity/Vol] 18 U/L 13-39 [facility] Basophils Auto (Bld) [#/Vol] Ordered By: Ajit Pettit on 05-04-2023 Basophils (Bld) [#/Vol] 0.1 10*3/uL 0.0-0.2 [facility] Basophils/100 WBC Auto (Bld) Ordered By: Ajit Pettit on 05-04-2023 Basophils/100 WBC (Bld) 0.9 % . F [facility] Bilirubin.total [Mass/volume ] in Serum or PlasmaOrdered By: Ajit Pettit on 05-04-2023 Bilirubin [Mass/Vol] 0.3 mg/dL 0.3-1.0 [facility] Calcium [Mass/volume] in Ser um or PlasmaOrdered By: Ajit Pettit on 05-04-2023 Calcium [Mass/Vol] 9.6 mg/dL 8.6-10.3 [facility] Carbon dioxide, total [Moles /volume] in Serum or PlasmaOrdered By: Ajit Pettit on 05-04-2023 CO2 [Moles/Vol] 28.5 mmol/L 21.0-31.0 [facility] Chloride [Moles/volume] in S alissa or PlasmaOrdered By: Ajit Pettit on 05-04-2023 Chloride [Moles/Vol] 100 mmol/L 98-107 [facility] Cholesterol [Mass/volume] in Serum or PlasmaOrdered By: Ajit Pettit on 05-04-2023 Cholesterol [Mass/Vol] 180 mg/dL 140-200 [facility] Comment on above: Chol less than 200 m g/dl low riskChol 201-239 mg/dl borderline riskChol 240 mg/dl and greater high risk Cholesterol in LDL Calc [Mas s/Vol]Ordered By: Ajit Pettit on 05-04-2023 Cholesterol in LDL [Mass/Vol] 81 mg/dL 0-100 [facility] Comment on above: LDL ATP III CLASSIFI CATIONLDL less than 100 mg/dL OptimalLDL 100-129 mg/dL Near or above optimalLDL 130-159 mg/dL Borderline highLDL 160-189 mg/dL HighLDL greater than 189 mg/dL Very high Cholesterol in VLDL Calc [Ma ss/Vol]Ordered By: Ajit Pettit on 05-04-2023 Cholesterol in VLDL [Mass/Vol] 46 mg/dL [facility] Complete Blood Count Auto Di ffon 05-04-2023 Basophils (Bld) [#/Vol] 0.1 10*3/uL Normal 0.0-0.2 [facility] Comment on above: Result Comment: PERF ORMED BY: [place] [address] PATHOLOGIST NET ARCHITECT RIDGE HUERTA M.D. Performed By: #### C BC, LIPID, FE PRO, CMP, TSH3 wRFLX #### [facility] [address] Basophils/100 WBC (Bld) 0.9 % Normal . F [facility] Comment on above: Performed By: #### C BC, LIPID, FE PRO, CMP, TSH3 wRFLX #### [address] Eosinophils (Bld) [#/Vol] 0.1 10*3/uL Normal 0.0-0.45 [facility] Comment on above: Performed By: #### C BC, LIPID, FE PRO, CMP, TSH3 wRFLX #### [address] Eosinophils/100 WBC (Bld) 0.5 % Normal . [facility] Comment on above: Performed By: #### C BC, LIPID, FE PRO, CMP, TSH3 wRFLX #### [address] Erythrocyte distribution width (RBC) [Ratio] 13.4 % Normal 11.9-15.3 [facility] Comment on above: Performed By: #### C BC, LIPID, FE PRO, CMP, TSH3 wRFLX #### [address] Hematocrit (Bld) [Volume fraction] 41.7 % Normal 34.0-46.4 [facility] Comment on above: Performed By: #### C BC, LIPID, FE PRO, CMP, TSH3 wRFLX #### [address] Hemoglobin (Bld) [Mass/Vol] 14.0 g/dL Normal 11.8-15.4 [facility] Comment on above: Performed By: #### C BC, LIPID, FE PRO, CMP, TSH3 wRFLX #### [address] Lymphocytes (Bld) [#/Vol] 3.2 10*3/uL Normal 1.00-4.8 [facility] Comment on above: Performed By: #### C BC, LIPID, FE PRO, CMP, TSH3 wRFLX #### [place] [address] [place] Lymphocytes/100 WBC (Bld) 22.3 % Normal . [facility] Comment on above: Performed By: #### C BC, LIPID, FE PRO, CMP, TSH3 wRFLX #### [address] MCH (RBC) [Entitic mass] 29.8 pg Normal 24.7-34.3 [facility] Comment on above: Performed By: #### C BC, LIPID, FE PRO, CMP, TSH3 wRFLX #### [address] MCV (RBC) [Entitic vol] 89.1 fL Normal 80-[address] [facility] Comment on above: Performed By: #### C BC, LIPID, FE PRO, CMP, TSH3 wRFLX #### [address] Mean Corpuscular HGB Conc 33.5 g/dL Normal 32.0-35.0 [facility] Comment on above: Performed By: #### C BC, LIPID, FE PRO, CMP, TSH3 wRFLX #### [address] Monocytes (Bld) [#/Vol] 0.9 10*3/uL High 0.0-0.8 [facility] Comment on above: Performed By: #### C BC, LIPID, FE PRO, CMP, TSH3 wRFLX #### [address] Monocytes/100 WBC (Bld) 6.3 % Normal . F [facility] Comment on above: Performed By: #### C BC, LIPID, FE PRO, CMP, TSH3 wRFLX #### [address] Neutrophils (Bld) [#/Vol] 10.1 10*3/uL High 1.8-7.7 [facility] Comment on above: Performed By: #### C BC, LIPID, FE PRO, CMP, TSH3 wRFLX #### [address] [place] [address] [place] Neutrophils/100 WBC (Bld) 70.0 % Normal . [facility] Comment on above: Performed By: #### C BC, LIPID, FE PRO, CMP, TSH3 wRFLX #### [address] NRBC% 0.1 /100{WBC} Normal 0-0.5 [facility] Comment on above: Performed By: #### C BC, LIPID, FE PRO, CMP, TSH3 wRFLX #### [address] Platelet mean volume (Bld) [Entitic vol] 8.4 fL Normal 6.3-10.7 [facility] Comment on above: Performed By: #### C BC, LIPID, FE PRO, CMP, TSH3 wRFLX #### [address] Platelets (Bld) [#/Vol] 328 10*3/uL Normal 150-450 [facility] Comment on above: Performed By: #### C BC, LIPID, FE PRO, CMP, TSH3 wRFLX #### [address] RBC (Bld) [#/Vol] 4.68 10*6/uL Normal 3.60-5.00 [facility] Comment on above: Performed By: #### C BC, LIPID, FE PRO, CMP, TSH3 wRFLX #### [address] WBC (Bld) [#/Vol] 14.4 10*3/uL High 3.8-11.6 [facility] Comment on above: Performed By: #### C BC, LIPID, FE PRO, CMP, TSH3 wRFLX #### [address] Comprehensive Metabolic Pane mark 05-04-2023 Albumin [Mass/Vol] 4.4 g/dL Normal 3.5-5.7 [facility] Comment on above: Performed By: #### C BC, LIPID, FE PRO, CMP, TSH3 wRFLX #### [address] Albumin/Globulin [Mass ratio] 1.9 {ratio} Normal [facility] Comment on above: Performed By: #### C BC, LIPID, FE PRO, CMP, TSH3 wRFLX #### [address] ALP [Catalytic activity/Vol] 55 U/L Normal 34-104 [facility] Comment on above: Performed By: #### C BC, LIPID, FE PRO, CMP, TSH3 wRFLX #### [address] ALT [Catalytic activity/Vol] 17 U/L Normal 7-52 [facility] Comment on above: Performed By: #### C BC, LIPID, FE PRO, CMP, TSH3 wRFLX #### [address] Anion gap [Moles/Vol] 11.8 mmol/L Normal 6.0-15.0 [facility] Comment on above: Performed By: #### C BC, LIPID, FE PRO, CMP, TSH3 wRFLX #### [address] AST [Catalytic activity/Vol] 18 U/L Normal 13-39 [facility] Comment on above: Performed By: #### C BC, LIPID, FE PRO, CMP, TSH3 wRFLX #### [address] Bilirubin [Mass/Vol] 0.3 mg/dL Normal 0.3-1.0 [facility] Comment on above: Performed By: #### C BC, LIPID, FE PRO, CMP, TSH3 wRFLX #### [address] Calcium [Mass/Vol] 9.6 mg/dL Normal 8.6-10.3 [facility] Comment on above: Performed By: #### C BC, LIPID, FE PRO, CMP, TSH3 wRFLX #### [facility] [address] Chloride [Moles/Vol] 100 mmol/L Normal 98-107 [facility] Comment on above: Performed By: #### C BC, LIPID, FE PRO, CMP, TSH3 wRFLX #### [facility] [address] CO2 [Moles/Vol] 28.5 mmol/L Normal 21.0-31.0 [facility] Comment on above: Performed By: #### C BC, LIPID, FE PRO, CMP, TSH3 wRFLX #### [facility] [address] Creatinine [Mass/Vol] 0.65 mg/dL Normal 0.60-1.20 [facility] Comment on above: Performed By: #### C BC, LIPID, FE PRO, CMP, TSH3 wRFLX #### [address] GFR/1.73 sq M.predicted MDRD (S/P/Bld) [Vol rate/Area] mL/min/{1.73_m2} Normal [facility] Comment on above: Performed By: #### C BC, LIPID, FE PRO, CMP, TSH3 wRFLX #### [address] Globulin (S) [Mass/Vol] 2.3 g/dL Normal [facility] Comment on above: Performed By: #### C BC, LIPID, FE PRO, CMP, TSH3 wRFLX #### [address] Glucose [Mass/Vol] 124 mg/dL High 70-100 [facility] Comment on above: Result Comment: [place] Glucose Reference Range is dependent on time and content of last meal. Glucose of more than 200 mg/dL in a nonstressed, ambulatory subject supports the diagnosis of Diabetes Mellitus. ADA recommended reference range Performed By: #### C BC, LIPID, FE PRO, CMP, TSH3 wRFLX #### [facility] [address] Potassium [Moles/Vol] 5.3 mmol/L High 3.5-5.1 [facility] Comment on above: Performed By: #### C BC, LIPID, FE PRO, CMP, TSH3 wRFLX #### [facility] [address] Protein [Mass/Vol] 6.7 g/dL Normal 6.4-8.9 [facility] Comment on above: Performed By: #### C BC, LIPID, FE PRO, CMP, TSH3 wRFLX #### [facility] [address] Sodium [Moles/Vol] 135 mmol/L Low 136-145 [facility] Comment on above: Performed By: #### C BC, LIPID, FE PRO, CMP, TSH3 wRFLX #### [facility] [address] Urea nitrogen [Mass/Vol] 9 mg/dL Normal 7-25 [facility] Comment on above: Performed By: #### C BC, LIPID, FE PRO, CMP, TSH3 wRFLX #### [facility] [address] [place] [address] Creatinine [Mass/volume] in Serum or PlasmaOrdered By: Ajit Pettit on 05-04-2023 Creatinine [Mass/Vol] 0.65 mg/dL 0.60-1.20 [facility] Eosinophils Auto (Bld) [#/Vo l]Ordered By: Ajit Pettit on 05-04-2023 Eosinophils (Bld) [#/Vol] 0.1 10*3/uL 0.0-0.45 [facility] Eosinophils/100 WBC Auto (Bl d)Ordered By: Ajit Pettit on 05-04-2023 Eosinophils/100 WBC (Bld) 0.5 % . [facility] Erythrocyte distribution wid th Auto (RBC) [Ratio]Ordered By: Ajit Pettit on 05-04-2023 Erythrocyte distribution width (RBC) [Ratio] 13.4 % 11.9-15.3 [facility] FE PROon 05-04-2023 % Iron Saturation 20.0 % Normal 20-50 [facility] Comment on above: Performed By: #### C BC, LIPID, FE PRO, CMP, TSH3 wRFLX #### [facility] [address] [place] [address] [facility] Ferritin [Mass/Vol] 90.4 ng/mL Normal 11.0-306.8 [facility] Comment on above: Performed By: #### C BC, LIPID, FE PRO, CMP, TSH3 wRFLX #### [facility] [address] [place] [id number] [facility] Iron [Mass/Vol] 95 ug/dL Normal 50-212 [facility] Comment on above: Performed By: #### C BC, LIPID, FE PRO, CMP, TSH3 wRFLX #### [facility] [address] [place] [address] [facility] Total Iron Binding Capacity 476 ug/dL High 255-450 [facility] Comment on above: Performed By: #### C BC, LIPID, FE PRO, CMP, TSH3 wRFLX #### [facility] [address] [place] [address] [place] Transferrin [Mass/Vol] 340 mg/dL Normal 203-362 [facility] Comment on above: Performed By: #### C BC, LIPID, FE PRO, CMP, TSH3 wRFLX #### [facility] [address] [place] [id number] [place] Ferritin [Mass/volume] in Se rum or PlasmaOrdered By: Ajit Pettit on 05-04-2023 Ferritin [Mass/Vol] 90.4 ng/mL 11.0-306.8 [facility] Globulin Calc (S) [Mass/Vol] Ordered By: Ajit Pettit on 05-04-2023 Globulin (S) [Mass/Vol] 2.3 g/dL [facility] Glucose [Mass/volume] in Ser um or PlasmaOrdered By: Ajit Pettit on 05-04-2023 Glucose [Mass/Vol] 124 mg/dL 70-100 [facility] Comment on above: ADA recommended refe rence rangeRandom Glucose Reference Range is dependent on time and content of last meal. Glucose of more than 200 mg/dL in a nonstressed, ambulatory subject supports the diagnosis of Diabetes Mellitus. Hematocrit Auto (Bld) [Volum e fraction]Ordered By: Ajit Pettit on 05-04-2023 Hematocrit (Bld) [Volume fraction] 41.7 % 34.0-46.4 [facility] Hemoglobin [Mass/volume] in BloodOrdered By: Ajit Pettit on 05-04-2023 Hemoglobin (Bld) [Mass/Vol] 14.0 g/dL 11.8-15.4 [facility] Iron [Mass/volume] in Serum or PlasmaOrdered By: Ajit Pettit on 05-04-2023 Iron [Mass/Vol] 95 ug/dL 50-212 [facility] Iron binding capacity [Mass/ volume] in Serum or PlasmaOrdered By: Ajit Pettit on 05-04-2023 Iron binding capacity [Mass/Vol] 476 ug/dL 255-450 [facility] Iron saturation [Mass Fracti on] in Serum or PlasmaOrdered By: Ajit Pettit on 05-04-2023 Iron saturation [Mass fraction] 20.0 % 20-50 [facility] Leukocytes [#/volume] correc cherie for nucleated erythrocytes in Blood by Automated counOrdered By: Ajit Pettit on 05-04-2023 WBC corrected for nucl RBC Auto (Bld) [#/Vol] 14.4 10*3/uL 3.8-11.6 [facility] Lipid Panelon 05-04-2023 Cholesterol [Mass/Vol] 180 mg/dL Normal 140-200 [facility] Comment on above: Result Comment: Chol less than 200 mg/dl low risk Chol 201-239 mg/dl borderline risk Chol 240 mg/dl and greater high risk Performed By: #### C BC, LIPID, FE PRO, CMP, TSH3 wRFLX #### [facility] [address] Cholesterol in HDL [Mass/Vol] 52 mg/dL Normal 23-92 [facility] Comment on above: Result Comment: HDL CHOL ATP-III CLASSIFICATION Cardiovascular Risk HDL > or equal to 60 mg/dL LOW HDL < 40 mg/dL HIGH Performed By: #### C BC, LIPID, FE PRO, CMP, TSH3 wRFLX #### [facility] [address] Cholesterol.total/Suellen sterol in HDL [Mass ratio] 3.5 {ratio} Normal <5.0 [facility] Comment on above: Performed By: #### C BC, LIPID, FE PRO, CMP, TSH3 wRFLX #### [facility] [address] LDL Cholesterol,Calculated 81 mg/dL Normal 0-100 [facility] Comment on above: Result Comment: LDL ATP III CLASSIFICATION LDL less than 100 mg/dL Optimal LDL 100-129 mg/dL Near or above optimal LDL 130-159 mg/dL Borderline high LDL 160-189 mg/dL High LDL greater than 189 mg/dL Very high Performed By: #### C BC, LIPID, FE PRO, CMP, TSH3 wRFLX #### [address] Triglyceride w/Reflex 233 mg/dL High 0-149 [facility] Comment on above: Result Comment: TRIG ATP III CLASSIFICATION TRIG less than 150 mg/dL Normal TRIG 150-199 mg/dL Borderline high TRIG 200-500 mg/dL High TRIG greater than 500 mg/dL Very high Standard traceable to the Center for Disease Conrtrol and Prevention (CDC) test method. Performed By: #### C BC, LIPID, FE PRO, CMP, TSH3 wRFLX #### [address] VLDL CHOLESTEROL 46 mg/dL Normal [facility] Comment on above: Performed By: #### C BC, LIPID, FE PRO, CMP, TSH3 wRFLX #### [facility] [address] Lymphocytes Auto (Bld) [#/Vo l]Ordered By: Ajit Pettit on 05-04-2023 Lymphocytes (Bld) [#/Vol] 3.2 10*3/uL 1.00-4.8 [facility] Lymphocytes/100 WBC Auto (Bl d)Ordered By: Ajit Pettit on 05-04-2023 Lymphocytes/100 WBC (Bld) 22.3 % . [facility] MCH Auto (RBC) [Entitic mass ]Ordered By: Ajit Pettit on 05-04-2023 MCH (RBC) [Entitic mass] 29.8 pg 24.7-34.3 [facility] MCHC Auto (RBC) [Mass/Vol]Or dered By: Ajit Pettit on 05-04-2023 MCHC (RBC) [Mass/Vol] 33.5 g/dL 32.0-35.0 [facility] MCV Auto (RBC) [Entitic vol] Ordered By: Ajit Pettit on 05-04-2023 MCV (RBC) [Entitic vol] 89.1 fL 80-[address] [facility] Monocytes Auto (Bld) [#/Vol] Ordered By: Ajit Pettit on 05-04-2023 Monocytes (Bld) [#/Vol] 0.9 10*3/uL 0.0-0.8 [facility] Monocytes/100 WBC Auto (Bld) Ordered By: Ajit Pettit on 05-04-2023 Monocytes/100 WBC (Bld) 6.3 % . F [facility] Neutrophils Auto (Bld) [#/Vo l]Ordered By: Ajit Pettit on 05-04-2023 Neutrophils (Bld) [#/Vol] 10.1 10*3/uL 1.8-7.7 [facility] Neutrophils/100 WBC Auto (Bl d)Ordered By: Ajit Pettit on 05-04-2023 Neutrophils/100 WBC (Bld) 70.0 % . [facility] No Panel InformationOrdered By: Ajit Pettit on 05-04-2023 Estimated GFR (CKD-EPI) > 60.0 mL/Min [facility] Creatinine Clearance (Chem N/A [facility] Nucleated erythrocytes [Pres ence] in Blood by Automated countOrdered By: Ajit Pettit on 05-04-2023 Nucleated RBC Auto Ql (Bld) 0.1 /100{WBC} 0-0.5 [facility] Platelet mean volume Auto (B ld) [Entitic vol]Ordered By: Ajit Pettit on 05-04-2023 Platelet mean volume (Bld) [Entitic vol] 8.4 fL 6.3-10.7 [facility] Platelets Auto (Bld) [#/Vol] Ordered By: Ajit Pettit on 05-04-2023 Platelets (Bld) [#/Vol] 328 10*3/uL 150-450 [facility] Potassium [Moles/volume] in Serum or PlasmaOrdered By: Ajit Pettit on 05-04-2023 Potassium [Moles/Vol] 5.3 mmol/L 3.5-5.1 [facility] Protein [Mass/volume] in Ser um or PlasmaOrdered By: Ajit Pettit on 05-04-2023 Protein [Mass/Vol] 6.7 g/dL 6.4-8.9 [facility] RBC Auto (Bld) [#/Vol]Ordere d By: Ajit Pettit on 05-04-2023 RBC (Bld) [#/Vol] 4.68 10*6/uL 3.60-5.00 [facility] Serum or plasma albumin/glob ulin mass ratioOrdered By: Ajit Pettit on 05-04-2023 Albumin/Globulin [Mass ratio] 1.9 {ratio} [facility] Serum or plasma anion gap de terminationOrdered By: Ajit Pettit on 05-04-2023 Anion gap [Moles/Vol] 11.8 mmol/L 6.0-15.0 [facility] Serum or plasma high density lipoprotein (HDL) cholesterol measurementOrdered By: Ajit Pettit on 05-04-2023 Cholesterol in HDL [Mass/Vol] 52 mg/dL 23-92 [facility] Comment on above: HDL CHOL ATP-III CLA SSIFICATION Cardiovascular RiskHDL > or equal to 60 mg/dL LOWHDL < 40 mg/dL HIGH Serum or plasma total choles terol/high density lipoprotein (HDL) cholesterol mass ratOrdered By: Ajit Pettit on 05-04-2023 Cholesterol.total/Suellen sterol in HDL [Mass ratio] 3.5 {ratio} <5.0 [facility] Sodium [Moles/volume] in Ser um or PlasmaOrdered By: Ajit Pettit on 05-04-2023 Sodium [Moles/Vol] 135 mmol/L 136-145 [facility] Thyroid Stim Hormone w/Rflxo n 05-04-2023 Thyroid Stim Hormone w/Rflx 1.97 u[iU]/mL Normal 0.45-5.33 [facility] Comment on above: Result Comment: PERF ORMED BY: [place] [address] PATHOLOGIST [employer]CH[employer] RIDGE HUERTA M.D. Performed By: #### C BC, LIPID, FE PRO, CMP, TSH3 wRFLX #### [facility] [address] [place] [address] [facility] Thyrotropin [Units/volume] i n Serum or PlasmaOrdered By: Ajit Pettit on 05-04-2023 TSH Qn 1.97 m[IU]/L 0.45-5.33 [facility] Transferrin [Mass/volume] in Serum or PlasmaOrdered By: Ajit Pettit on 05-04-2023 Transferrin [Mass/Vol] 340 mg/dL 203-362 [facility] Triglyceride [Mass/volume] i n Serum or PlasmaOrdered By: Ajit Pettit on 05-04-2023 Triglyceride [Mass/Vol] 233 mg/dL 0-149 [facility] Comment on above: TRIG ATP III CLASSIF ICATIONTRIG less than 150 mg/dL NormalTRIG 150-199 mg/dL Borderline highTRIG 200-500 mg/dL High TRIG greater than 500 mg/dL Very highStandard traceable to the Center for Disease Conrtrol and Prevention (CDC) test method. Urea nitrogen [Mass/volume] in Serum or PlasmaOrdered By: Ajit Pettit on 05-04-2023 Urea nitrogen [Mass/Vol] 9 mg/dL 7-25 [facility] Urine Cultureon 05-04-2023 Bacteria identified Cx Nom (U) ORGANISM: Strep. agalactiae Grp B (O:B) [place] Count <10,000 PERFORMED BY: [place] [address] PATHOLOGIST [employer] RIDGE HUERTA M.D. [facility] Comment on above: Performed By: #### C BC, LIPID, FE PRO, CMP, TSH3 wRFLX #### [address] Urine culture routineOrdered By: Ajit Pettit on 05-04-2023 Bacteria identified Cx Nom (U) Strep. agalactiae Grp B [facility] WBC Auto (Bld) [#/Vol]Ordere d By: Ajit Pettit on 05-04-2023 WBC (Bld) [#/Vol] 14.4 10*3/uL 3.8-11.6 [facility] XR thoracic spine 3V*on 04-04 XR thoracic spine 3V* [place] [facility] [place] [address] [place] [address] XRay Report Signed Patient: Rachel Zuñiga MR#: [id number] 1 : 1980 Acct:[id number] Age/Sex: 43 / F ADM Date: 04/26/23 Loc: [place] Room: Type: [facility] Attending Dr: Kyler Miramontes MD Copies to: Kyler Miramontes MD Ordering Provider: Kyler Miramontes MD Date of Service: 04/26/23 XR/XR thoracic spine 3V*: Mid back pain THORACIC SPINE - - 3 views CLINICAL HISTORY: Mid to lower thoracic spine on and off for 2 months. COMPARISON: None FINDINGS: Vertebral body heights appear maintained. Pedicles appear intact. Minimal endplate degenerative change. XR/XR thoracic spine 3V* IMPRESSION: MINIMAL ENDPLATE DEGENERATIVE CHANGE. NO ACUTE BONY PROCESS. Impression dictated by: Andrés Yeboah Jr., D.O.04/26/2023 1:04 PM Dictation Location: [place] [address] Transcribed By: [facility] 04/26/23 1304 Dictated By: Andrés Yeboah Jr, DO 04/26/23 130 Signed By: 04/26/23 1304 [facility] HCG ( test) IA.mateus d Ql (U)Ordered By: Kyler Miramontes on 04-14-2023 HCG ( test) Ql (U) Negative [facility] HCG,Urineon 04-14-2023 Beta HCG ( test) Ql (U) Negative Normal [facility] Comment on above: Result Comment: PERF ORMED BY: [facility] [address] [place] [address] PATHOLOGIST [employer] HUERTA M.D. Performed By: #### C BC, LIPID, FE PRO, CMP, TSH3 wRFLX #### [facility] [address] [place] [id number] [facility] CBC AUTO DIFFon 02-15-2023 BASO # 0.1 103/ul Normal 0.0-0.1 [facility] Comment on above: Performed By: #### C BC #### [facility] [address] [address] [address] Vito Grimm Basophils/100 WBC (Bld) 0.5 % Normal 0.2-2.0 [facility] Comment on above: Performed By: #### C BC #### [facility] [address] [place] [address] [address] Vito Grimm EO # 0.1 103/ul Normal 0.0-0.7 [facility] Comment on above: Performed By: #### C BC #### [facility] [address] [address] [address] Vito Grimm Eosinophils/100 WBC (Bld) 0.8 % Critically low 0.9-7.0 [facility] Comment on above: Performed By: #### C BC #### [facility] [address] [place] [address] Dr. Vito Grimm Erythrocyte distribution width (RBC) [Ratio] 13.1 % Normal 11.0-15.0 [facility] Comment on above: Performed By: #### C BC #### [facility] [address] [place] [address] Dr. Vito Grimm Hematocrit (Bld) [Volume fraction] 41.2 % Normal 36.0-48.0 [facility] Comment on above: Performed By: #### C BC #### [facility] [address] [place] [address] Dr. Vito Grimm Hemoglobin (Bld) [Mass/Vol] 13.4 g/dL Normal 12.0-16.0 [facility] Comment on above: Performed By: #### C BC #### [facility] [address] [place] [address] Dr. Vito Grimm IG # 0.05 10e3/ul Critically high 0.00-0.03 [facility] Comment on above: Performed By: #### C BC #### [facility] [address] [place] [address] Dr. Vito Grimm IG % 0.4 % Normal 0.0-0.5 [facility] Comment on above: Performed By: #### C BC #### [facility] [address] [place] [address] Dr. Vito Grimm LYMPH # 4.8 103/ul Critically high 1.2-3.8 [facility] Comment on above: Performed By: #### C BC #### [facility] [address] [place] [address] Dr. Vito Grimm Lymphocytes/100 WBC (Bld) 38.8 % Normal 20.5-60.0 [facility] Comment on above: Performed By: #### C BC #### [facility] [address] [place] [address] Dr. Vito Grimm MANUAL DIFF REQ NO Normal [facility] Comment on above: Performed By: #### C BC #### [facility] [address] [place] [address] Dr. Vito Grimm MCH (RBC) [Entitic mass] 29.9 pg Normal 26.7-34.0 [facility] Comment on above: Performed By: #### C BC #### [facility] [address] [place] [address] Dr. Vito Grimm MCHC (RBC) [Mass/Vol] 32.5 g/dL Normal 29.9-35.2 [facility] Comment on above: Performed By: #### C BC #### [facility] [address] [place] [address] Dr. Vito Grimm MCV (RBC) [Entitic vol] 92.0 fL Normal 81.0-99.0 [facility] Comment on above: Performed By: #### C BC #### [facility] [address] [place] [address] Dr. Vito Grimm MONO # 0.9 103/ul Critically high 0.3-0.8 [facility] Comment on above: Performed By: #### C BC #### [facility] [address] [place] [address] Dr. Vito Grimm Monocytes/100 WBC (Bld) 7.4 % Normal 1.7-12.0 [facility] Comment on above: Performed By: #### C BC #### [facility] [address] [place] [address] Dr. Vito Grimm NEUT # 6.5 103/ul Normal 1.4-6.5 [facility] Comment on above: Performed By: #### C BC #### [facility] [address] [place] [address] Dr. Vito Grimm Neutrophils/100 WBC (Bld) 52.1 % Normal 43.0-75.0 [facility] Comment on above: Performed By: #### C BC #### [facility] [address] [place] [address] Dr. Vito Grimm Platelet mean volume (Bld) [Entitic vol] 10.0 fL Normal 9.5-13.5 [facility] Comment on above: Performed By: #### C BC #### [facility] [address] [place] [address] Dr. Vito Grimm PLT 298 103/ul Normal 150-450 [facility] Comment on above: Performed By: #### C BC #### [facility] [address] [place] [address] Dr. Vito Grimm RBC 4.48 106/ul Normal 4.20-5.40 [facility] Comment on above: Performed By: #### C BC #### [facility] [address] [place] [address] Dr. Vito Grimm WBC 12.4 103/ul Critically high 4.0-11.0 [facility] Comment on above: Performed By: #### C BC #### [facility] [address] [place] [address] Dr. Vito Grimm DEPAKENE/ VALPROIC ACIDon DEPAKENE 49.4 ug/ml Critically low 50.0-100.0 [facility] Comment on above: Performed By: #### C MP, HSTROPN #### [facility] [address] [place] [address] Dr. Vito Grimm LACTATE/LACTIC ACIDon 2022 Lactate [Moles/Vol] 2.7 mmol/L Critically high 0.4-2.0 [facility] Comment on above: Performed By: #### L ACT #### [facility] [address] [place] [address] Dr. Vito Grimm PROF CHEM 8 (BAS METB)on Anion gap [Moles/Vol] 17.6 mmol/L Normal [facility] Comment on above: Performed By: #### B MP #### [facility] [address] [place] [address] Dr. Vito Grimm Calcium [Mass/Vol] 8.7 mg/dL Normal 8.5-10.1 [facility] Comment on above: Performed By: #### B MP #### [facility] [address] [place] [address] Dr. Vito Grimm Chloride [Moles/Vol] 99 mmol/L Normal 98-107 [facility] Comment on above: Performed By: #### B MP #### [facility] [address] [place] [address] Dr. Vito Grimm CO2 [Moles/Vol] 23.5 mmol/L Normal 21.0-32.0 [facility] Comment on above: Performed By: #### B MP #### [facility] [address] [place] [address] Dr. Vito Grimm Creatinine [Mass/Vol] 0.75 mg/dL Normal 0.55-1.02 [facility] Comment on above: Performed By: #### B MP #### [facility] [address] [address] [address] Vito Grimm EGFR-AF [place] >60 Normal >=60 [facility] Comment on above: Performed By: #### B MP #### [facility] [address] [address] [address] Vito Grimm EGFR-NON AF [place] >60 Normal >=60 [facility] Comment on above: Performed By: #### B MP #### [facility] [address] [address] [address] Vito Grimm Glucose [Mass/Vol] 273 mg/dL Critically high 74-106 [facility] Comment on above: Performed By: #### B MP #### [facility] [address] [place] [address] Dr. Vito Grimm Potassium [Moles/Vol] 4.1 mmol/L Normal 3.5-5.1 [facility] Comment on above: Performed By: #### B MP #### [facility] [address] [address] [address] Vito Grimm Sodium [Moles/Vol] 136 mmol/L Normal 136-145 [facility] Comment on above: Performed By: #### B MP #### [facility] [address] [place] [address] Dr. Vito Grimm Urea nitrogen [Mass/Vol] 6.0 mg/dL Critically low 7.0-18.0 [facility] Comment on above: Performed By: #### B MP #### [facility] [address] [place] [address] Dr. Vito Grimm Urea nitrogen/Creatinine [Mass ratio] 8.0 mg/mg Normal [facility] Comment on above: Performed By: #### B MP #### [facility] [address] [place] [address] Dr. Vito Grimm Alanine aminotransferase [En zymatic activity/volume] in Serum or PlasmaOrdered By: Ajit Pettit on 02-09-2023 ALT [Catalytic activity/Vol] 29 U/L 7-52 [facility] Albumin [Mass/volume] in Ser um or Plasma by Bromocresol green (BCG) dye binding methoOrdered By: Ajit Pettit on 02-09-2023 Albumin BCG dye [Mass/Vol] 4.4 g/dL 3.5-5.7 [facility] Alkaline phosphatase [Enzyma tic activity/volume] in Serum or PlasmaOrdered By: Ajit Lariossic on 02-09-2023 ALP [Catalytic activity/Vol] 72 U/L 34-104 [facility] Aspartate aminotransferase [ Enzymatic activity/volume] in Serum or PlasmaOrdered By: Ajit Spasic on 02-09-2023 AST [Catalytic activity/Vol] 27 U/L 13-39 [facility] Basophils Auto (Bld) [#/Vol] Ordered By: Ajit Millanc on 02-09-2023 Basophils (Bld) [#/Vol] 0.1 10*3/uL 0.0-0.2 [facility] Basophils/100 WBC Auto (Bld) Ordered By: Ajit Pettit on 02-09-2023 Basophils/100 WBC (Bld) 0.6 % . F [facility] Bilirubin.total [Mass/volume ] in Serum or PlasmaOrdered By: Ajit Millanc on 02-09-2023 Bilirubin [Mass/Vol] 0.3 mg/dL 0.3-1.0 [facility] Calcium [Mass/volume] in Ser um or PlasmaOrdered By: Ajit aLriossic on 02-09-2023 Calcium [Mass/Vol] 9.3 mg/dL 8.6-10.3 [facility] Carbon dioxide, total [Moles /volume] in Serum or PlasmaOrdered By: Ajit Millanc on 02-09-2023 CO2 [Moles/Vol] 23.8 mmol/L 21.0-31.0 [facility] Chloride [Moles/volume] in S alissa or PlasmaOrdered By: Ajit Spasic on 02-09-2023 Chloride [Moles/Vol] 101 mmol/L 98-107 [facility] Cholesterol [Mass/volume] in Serum or PlasmaOrdered By: Ajit Millanc on 02-09-2023 Cholesterol [Mass/Vol] 166 mg/dL 140-200 [facility] Comment on above: Chol less than 200 m g/dl low riskChol 201-239 mg/dl borderline riskChol 240 mg/dl and greater high risk Cholesterol in LDL Calc [Mas s/Vol]Ordered By: Ajit Pettit on 02-09-2023 Cholesterol in LDL [Mass/Vol] TNP [facility] Comment on above: Test not performed Cholesterol in LDL [Mass/vol ume] in Serum or PlasmaOrdered By: Ajit Pettit on 02-09-2023 Cholesterol in LDL [Mass/Vol] 61 mg/dL 0-100 [facility] Comment on above: LDL ATP III CLASSIFI CATIONLDL less than 100 mg/dL OptimalLDL 100-129 mg/dL Near or above optimalLDL 130-159 mg/dL Borderline highLDL 160-189 mg/dL HighLDL greater than 189 mg/dL Very high Cholesterol in VLDL Calc [Ma ss/Vol]Ordered By: Ajit Pettit on 02-09-2023 Cholesterol in VLDL [Mass/Vol] 97 mg/dL [facility] Complete Blood Count Auto Di ffon 02-09-2023 Basophils (Bld) [#/Vol] 0.1 10*3/uL Normal 0.0-0.2 [facility] Comment on above: Order Comment: Reaso n for Exam Type 2 diabetes mellitus without complication, without long- Result Comment: PERF ORMED BY: [place] [address] PATHOLOGIST NET ARCHITECT RIDGE HUERTA M.D. Performed By: #### L IPID, CMP, TSH3, LDLD, CBC, CUU #### [facility] [address] [place] [address] [place] Basophils/100 WBC (Bld) 0.6 % Normal . F [facility] Comment on above: Order Comment: Reaso n for Exam Type 2 diabetes mellitus without complication, without long- Performed By: #### L IPID, CMP, TSH3, LDLD, CBC, CUU #### [facility] [address] [id number] [place] Eosinophils (Bld) [#/Vol] 0.1 10*3/uL Normal 0.0-0.45 [facility] Comment on above: Order Comment: Reaso n for Exam Type 2 diabetes mellitus without complication, without long- Performed By: #### L IPID, CMP, TSH3, LDLD, CBC, CUU #### [address] Eosinophils/100 WBC (Bld) 0.7 % Normal . [facility] Comment on above: Order Comment: Reaso n for Exam Type 2 diabetes mellitus without complication, without long- Performed By: #### L IPID, CMP, TSH3, LDLD, CBC, CUU #### [address] Erythrocyte distribution width (RBC) [Ratio] 13.1 % Normal 11.9-15.3 [facility] Comment on above: Order Comment: Reaso n for Exam Type 2 diabetes mellitus without complication, without long- Performed By: #### L IPID, CMP, TSH3, LDLD, CBC, CUU #### [address] Hematocrit (Bld) [Volume fraction] 39.7 % Normal 34.0-46.4 [facility] Comment on above: Order Comment: Reaso n for Exam Type 2 diabetes mellitus without complication, without long- Performed By: #### L IPID, CMP, TSH3, LDLD, CBC, CUU #### [address] Hemoglobin (Bld) [Mass/Vol] 13.1 g/dL Normal 11.8-15.4 [facility] Comment on above: Order Comment: Reaso n for Exam Type 2 diabetes mellitus without complication, without long- Performed By: #### L IPID, CMP, TSH3, LDLD, CBC, CUU #### [facility] [address] [place] [address] [place] Lymphocytes (Bld) [#/Vol] 3.6 10*3/uL Normal 1.00-4.8 [facility] Comment on above: Order Comment: Reaso n for Exam Type 2 diabetes mellitus without complication, without long- Performed By: #### L IPID, CMP, TSH3, LDLD, CBC, CUU #### [address] Lymphocytes/100 WBC (Bld) 27.3 % Normal . [facility] Comment on above: Order Comment: Reaso n for Exam Type 2 diabetes mellitus without complication, without long- Performed By: #### L IPID, CMP, TSH3, LDLD, CBC, CUU #### [address] MCH (RBC) [Entitic mass] 29.5 pg Normal 24.7-34.3 [facility] Comment on above: Order Comment: Reaso n for Exam Type 2 diabetes mellitus without complication, without long- Performed By: #### L IPID, CMP, TSH3, LDLD, CBC, CUU #### [address] MCV (RBC) [Entitic vol] 89.3 fL Normal 80-[address] [facility] Comment on above: Order Comment: Reaso n for Exam Type 2 diabetes mellitus without complication, without long- Performed By: #### L IPID, CMP, TSH3, LDLD, CBC, CUU #### [address] Mean Corpuscular HGB Conc 33.1 g/dL Normal 32.0-35.0 [facility] Comment on above: Order Comment: Reaso n for Exam Type 2 diabetes mellitus without complication, without long- Performed By: #### L IPID, CMP, TSH3, LDLD, CBC, CUU #### [place] [address] [place] Monocytes (Bld) [#/Vol] 0.9 10*3/uL High 0.0-0.8 [facility] Comment on above: Order Comment: Reaso n for Exam Type 2 diabetes mellitus without complication, without long- Performed By: #### L IPID, CMP, TSH3, LDLD, CBC, CUU #### [address] Monocytes/100 WBC (Bld) 7.0 % Normal . F [facility] Comment on above: Order Comment: Reaso n for Exam Type 2 diabetes mellitus without complication, without long- Performed By: #### L IPID, CMP, TSH3, LDLD, CBC, CUU #### [facility] [address] [place] [address] [place] Neutrophils (Bld) [#/Vol] 8.5 10*3/uL High 1.8-7.7 [facility] Comment on above: Order Comment: Reaso n for Exam Type 2 diabetes mellitus without complication, without long- Performed By: #### L IPID, CMP, TSH3, LDLD, CBC, CUU #### [facility] [address] [place] [address] [place] Neutrophils/100 WBC (Bld) 64.4 % Normal . [facility] Comment on above: Order Comment: Reaso n for Exam Type 2 diabetes mellitus without complication, without long- Performed By: #### L IPID, CMP, TSH3, LDLD, CBC, CUU #### [facility] [address] [place] [address] [place] NRBC% 0.0 /100{WBC} Normal 0-0.5 [facility] Comment on above: Order Comment: Reaso n for Exam Type 2 diabetes mellitus without complication, without long- Performed By: #### L IPID, CMP, TSH3, LDLD, CBC, CUU #### [facility] [address] [place] [address] [place] Platelet mean volume (Bld) [Entitic vol] 8.8 fL Normal 6.3-10.7 [facility] Comment on above: Order Comment: Reaso n for Exam Type 2 diabetes mellitus without complication, without long- Performed By: #### L IPID, CMP, TSH3, LDLD, CBC, CUU #### [facility] [address] [place] [address] [place] Platelets (Bld) [#/Vol] 295 10*3/uL Normal 150-450 [facility] Comment on above: Order Comment: Reaso n for Exam Type 2 diabetes mellitus without complication, without long- Performed By: #### L IPID, CMP, TSH3, LDLD, CBC, CUU #### [facility] [address] RBC (Bld) [#/Vol] 4.44 10*6/uL Normal 3.60-5.00 [facility] Comment on above: Order Comment: Reaso n for Exam Type 2 diabetes mellitus without complication, without long- Performed By: #### L IPID, CMP, TSH3, LDLD, CBC, CUU #### [facility] [address] WBC (Bld) [#/Vol] 13.2 10*3/uL High 3.8-11.6 [facility] Comment on above: Order Comment: Reaso n for Exam Type 2 diabetes mellitus without complication, without long- Performed By: #### L IPID, CMP, TSH3, LDLD, CBC, CUU #### [address] Comprehensive Metabolic Pane mark 02-09-2023 Albumin [Mass/Vol] 4.4 g/dL Normal 3.5-5.7 [facility] Comment on above: Order Comment: Reaso n for Exam Type 2 diabetes mellitus without complication, without long- Performed By: #### B MP #### [address] Albumin/Globulin [Mass ratio] 1.9 {ratio} Normal [facility] Comment on above: Order Comment: Reaso n for Exam Type 2 diabetes mellitus without complication, without long- Performed By: #### B MP #### [address] ALP [Catalytic activity/Vol] 72 U/L Normal 34-104 [facility] Comment on above: Order Comment: Reaso n for Exam Type 2 diabetes mellitus without complication, without long- Performed By: #### B MP #### [address] ALT [Catalytic activity/Vol] 29 U/L Normal 7-52 [facility] Comment on above: Order Comment: Reaso n for Exam Type 2 diabetes mellitus without complication, without long- Performed By: #### B MP #### [facility] [address] Anion gap [Moles/Vol] 15.7 mmol/L High 6.0-15.0 [facility] Comment on above: Order Comment: Reaso n for Exam Type 2 diabetes mellitus without complication, without long- Performed By: #### B MP #### [facility] [address] [place] [address] AST [Catalytic activity/Vol] 27 U/L Normal 13-39 [facility] Comment on above: Order Comment: Reaso n for Exam Type 2 diabetes mellitus without complication, without long- Performed By: #### B MP #### [address] Bilirubin [Mass/Vol] 0.3 mg/dL Normal 0.3-1.0 [facility] Comment on above: Order Comment: Reaso n for Exam Type 2 diabetes mellitus without complication, without long- Performed By: #### B MP #### [address] Calcium [Mass/Vol] 9.3 mg/dL Normal 8.6-10.3 [facility] Comment on above: Order Comment: Reaso n for Exam Type 2 diabetes mellitus without complication, without long- Performed By: #### B MP #### [facility] [address] [place] [address] [place] Chloride [Moles/Vol] 101 mmol/L Normal 98-107 [facility] Comment on above: Order Comment: Reaso n for Exam Type 2 diabetes mellitus without complication, without long- Performed By: #### B MP #### [facility] [address] [place] [address] [place] CO2 [Moles/Vol] 23.8 mmol/L Normal 21.0-31.0 [facility] Comment on above: Order Comment: Reaso n for Exam Type 2 diabetes mellitus without complication, without long- Performed By: #### B MP #### [facility] [address] [place] [address] [place] Creatinine [Mass/Vol] 0.75 mg/dL Normal 0.60-1.20 [facility] Comment on above: Order Comment: Reaso n for Exam Type 2 diabetes mellitus without complication, without long- Performed By: #### B MP #### [facility] [address] [place] [address] [place] GFR/1.73 sq M.predicted MDRD (S/P/Bld) [Vol rate/Area] mL/min/{1.73_m2} Normal [facility] Comment on above: Order Comment: Reaso n for Exam Type 2 diabetes mellitus without complication, without long- Performed By: #### B MP #### [facility] [address] [place] [address] [place] Globulin (S) [Mass/Vol] 2.3 g/dL Normal [facility] Comment on above: Order Comment: Reaso n for Exam Type 2 diabetes mellitus without complication, without long- Performed By: #### B MP #### [address] Glucose [Mass/Vol] 286 mg/dL High 70-100 [facility] Comment on above: Order Comment: Reaso n for Exam Type 2 diabetes mellitus without complication, without long- Result Comment: [place] Glucose Reference Range is dependent on time and content of last meal. Glucose of more than 200 mg/dL in a nonstressed, ambulatory subject supports the diagnosis of Diabetes Mellitus. ADA recommended reference range Performed By: #### B MP #### [place] [address] [place] Potassium [Moles/Vol] 4.5 mmol/L Normal 3.5-5.1 [facility] Comment on above: Order Comment: Reaso n for Exam Type 2 diabetes mellitus without complication, without long- Performed By: #### B MP #### [place] [address] [place] Protein [Mass/Vol] 6.7 g/dL Normal 6.4-8.9 [facility] Comment on above: Order Comment: Reaso n for Exam Type 2 diabetes mellitus without complication, without long- Performed By: #### B MP #### [facility] [address] [id number] [place] Sodium [Moles/Vol] 136 mmol/L Normal 136-145 [facility] Comment on above: Order Comment: Reaso n for Exam Type 2 diabetes mellitus without complication, without long- Performed By: #### B MP #### [facility] [address] [place] [address] [place] Urea nitrogen [Mass/Vol] 10 mg/dL Normal 7-25 [facility] Comment on above: Order Comment: Reaso n for Exam Type 2 diabetes mellitus without complication, without long- Performed By: #### B MP #### [facility] [address] [place] [address] [place] Creatinine [Mass/volume] in Serum or PlasmaOrdered By: Ajit Pettit on 02-09-2023 Creatinine [Mass/Vol] 0.75 mg/dL 0.60-1.20 [facility] Eosinophils Auto (Bld) [#/Vo l]Ordered By: Ajit Pettit on 02-09-2023 Eosinophils (Bld) [#/Vol] 0.1 10*3/uL 0.0-0.45 [facility] Eosinophils/100 WBC Auto (Bl d)Ordered By: Ajit Pettit on 02-09-2023 Eosinophils/100 WBC (Bld) 0.7 % . [facility] Erythrocyte distribution wid th Auto (RBC) [Ratio]Ordered By: Ajit Pettit on 02-09-2023 Erythrocyte distribution width (RBC) [Ratio] 13.1 % 11.9-15.3 [facility] Globulin Calc (S) [Mass/Vol] Ordered By: Ajit Pettit on 02-09-2023 Globulin (S) [Mass/Vol] 2.3 g/dL [facility] Glucose [Mass/volume] in Ser um or PlasmaOrdered By: Ajit Pettit on 02-09-2023 Glucose [Mass/Vol] 286 mg/dL 70-100 [facility] Comment on above: ADA recommended refe rence rangeRandom Glucose Reference Range is dependent on time and content of last meal. Glucose of more than 200 mg/dL in a nonstressed, ambulatory subject supports the diagnosis of Diabetes Mellitus. Hematocrit Auto (Bld) [Volum e fraction]Ordered By: Ajit Pettit on 02-09-2023 Hematocrit (Bld) [Volume fraction] 39.7 % 34.0-46.4 [facility] Hemoglobin [Mass/volume] in BloodOrdered By: Ajit Pettit on 02-09-2023 Hemoglobin (Bld) [Mass/Vol] 13.1 g/dL 11.8-15.4 [facility] LDL Cholesterol Measuredon 0 02-09-2023 LDL Cholesterol Measured 61 mg/dL Normal 0-100 [facility] Comment on above: Order Comment: Reaso n for Exam Type 2 diabetes mellitus without complication, without long- Result Comment: LDL ATP III CLASSIFICATION LDL less than 100 mg/dL Optimal LDL 100-129 mg/dL Near or above optimal LDL 130-159 mg/dL Borderline high LDL 160-189 mg/dL High LDL greater than 189 mg/dL Very high Performed By: #### B MP #### [facility] [address] Leukocytes [#/volume] correc cherie for nucleated erythrocytes in Blood by Automated counOrdered By: Ajit Pettit on 02-09-2023 WBC corrected for nucl RBC Auto (Bld) [#/Vol] 13.2 10*3/uL 3.8-11.6 [facility] Lipid Panelon 02-09-2023 Cholesterol [Mass/Vol] 166 mg/dL Normal 140-200 [facility] Comment on above: Order Comment: Reaso n for Exam Type 2 diabetes mellitus without complication, without long- Result Comment: Chol less than 200 mg/dl low risk Chol 201-239 mg/dl borderline risk Chol 240 mg/dl and greater high risk Performed By: #### B MP #### [facility] [address] [place] [address] [place] Cholesterol in HDL [Mass/Vol] 41 mg/dL Normal 35-85 [facility] Comment on above: Order Comment: Reaso n for Exam Type 2 diabetes mellitus without complication, without long- Result Comment: HDL CHOL ATP-III CLASSIFICATION Cardiovascular Risk HDL > or equal to 60 mg/dL LOW HDL < 40 mg/dL HIGH Performed By: #### B MP #### [facility] [address] [id number] [facility] Cholesterol.total/Suellen sterol in HDL [Mass ratio] 4.0 {ratio} Normal <5.0 [facility] Comment on above: Order Comment: Reaso n for Exam Type 2 diabetes mellitus without complication, without long- Performed By: #### B MP #### [facility] [address] [id number] [facility] LDL Cholesterol,Calculated Not performed Normal 0-100 [facility] Comment on above: Order Comment: Reaso n for Exam Type 2 diabetes mellitus without complication, without long- Performed By: #### B MP #### [facility] [address] Triglyceride w/Reflex 485 mg/dL High 0-149 [facility] Comment on above: Order Comment: Reaso n for Exam Type 2 diabetes mellitus without complication, without long- Result Comment: TRIG ATP III CLASSIFICATION TRIG less than 150 mg/dL Normal TRIG 150-199 mg/dL Borderline high TRIG 200-500 mg/dL High TRIG greater than 500 mg/dL Very high Standard traceable to the Center for Disease Conrtrol and Prevention (CDC) test method. If the triglyceride result is greater than 400, LDLC and related calculations cannot be calculated and resulted. Performed By: #### B MP #### [facility] [address] [id number] [facility] VLDL CHOLESTEROL 97 mg/dL Normal [facility] Comment on above: Order Comment: Reaso n for Exam Type 2 diabetes mellitus without complication, without long- Performed By: #### B MP #### [facility] [address] Lymphocytes Auto (Bld) [#/Vo l]Ordered By: Ajit Pettit on 02-09-2023 Lymphocytes (Bld) [#/Vol] 3.6 10*3/uL 1.00-4.8 [facility] Lymphocytes/100 WBC Auto (Bl d)Ordered By: Ajit Pettit on 02-09-2023 Lymphocytes/100 WBC (Bld) 27.3 % . [facility] MCH Auto (RBC) [Entitic mass ]Ordered By: Ajit Pettit on 02-09-2023 MCH (RBC) [Entitic mass] 29.5 pg 24.7-34.3 [facility] MCHC Auto (RBC) [Mass/Vol]Or dered By: Ajit Pettit on 02-09-2023 MCHC (RBC) [Mass/Vol] 33.1 g/dL 32.0-35.0 [facility] MCV Auto (RBC) [Entitic vol] Ordered By: Ajit Pettit on 02-09-2023 MCV (RBC) [Entitic vol] 89.3 fL 80-[address] [facility] Monocytes Auto (Bld) [#/Vol] Ordered By: Ajit Pettit on 02-09-2023 Monocytes (Bld) [#/Vol] 0.9 10*3/uL 0.0-0.8 [facility] Monocytes/100 WBC Auto (Bld) Ordered By: Ajit Pettit on 02-09-2023 Monocytes/100 WBC (Bld) 7.0 % . F [facility] Neutrophils Auto (Bld) [#/Vo l]Ordered By: Ajit Pettit on 02-09-2023 Neutrophils (Bld) [#/Vol] 8.5 10*3/uL 1.8-7.7 [facility] Neutrophils/100 WBC Auto (Bl d)Ordered By: Ajit Pettit on 02-09-2023 Neutrophils/100 WBC (Bld) 64.4 % . [facility] No Panel InformationOrdered By: Ajit Pettit on 02-09-2023 Estimated GFR (CKD-EPI) > 60.0 mL/Min [facility] Creatinine Clearance (Chem N/A [facility] Nucleated erythrocytes [Pres ence] in Blood by Automated countOrdered By: Ajit Pettit on 02-09-2023 Nucleated RBC Auto Ql (Bld) 0.0 /100{WBC} 0-0.5 [facility] Platelet mean volume Auto (B ld) [Entitic vol]Ordered By: Ajit Pettit on 02-09-2023 Platelet mean volume (Bld) [Entitic vol] 8.8 fL 6.3-10.7 [facility] Platelets Auto (Bld) [#/Vol] Ordered By: Ajit Pettit on 02-09-2023 Platelets (Bld) [#/Vol] 295 10*3/uL 150-450 [facility] Potassium [Moles/volume] in Serum or PlasmaOrdered By: Ajti Pettit on 02-09-2023 Potassium [Moles/Vol] 4.5 mmol/L 3.5-5.1 [facility] Protein [Mass/volume] in Ser um or PlasmaOrdered By: Ajit Pettit on 02-09-2023 Protein [Mass/Vol] 6.7 g/dL 6.4-8.9 [facility] RBC Auto (Bld) [#/Vol]Ordere d By: Ajit Pettit on 02-09-2023 RBC (Bld) [#/Vol] 4.44 10*6/uL 3.60-5.00 [facility] Serum or plasma albumin/glob ulin mass ratioOrdered By: Ajit Pettit on 02-09-2023 Albumin/Globulin [Mass ratio] 1.9 {ratio} [facility] Serum or plasma anion gap de terminationOrdered By: Ajit Pettit on 02-09-2023 Anion gap [Moles/Vol] 15.7 mmol/L 6.0-15.0 [facility] Serum or plasma high density lipoprotein (HDL) cholesterol measurementOrdered By: Ajit Pettit on 02-09-2023 Cholesterol in HDL [Mass/Vol] 41 mg/dL 35-85 [facility] Comment on above: HDL CHOL ATP-III CLA SSIFICATION Cardiovascular RiskHDL > or equal to 60 mg/dL LOWHDL < 40 mg/dL HIGH Serum or plasma total choles terol/high density lipoprotein (HDL) cholesterol mass ratOrdered By: Ajit Pettit on 02-09-2023 Cholesterol.total/Suellen sterol in HDL [Mass ratio] 4.0 {ratio} <5.0 [facility] Sodium [Moles/volume] in Ser um or PlasmaOrdered By: Ajit Pettit on 02-09-2023 Sodium [Moles/Vol] 136 mmol/L 136-145 [facility] Thyroid Stimulating Hormoneo n 02-09-2023 TSH Qn 2.98 m[IU]/L Normal 0.45-5.33 [facility] Comment on above: Order Comment: Reaso n for Exam Type 2 diabetes mellitus without complication, without long- Result Comment: PERF ORMED BY: [place] [address] PATHOLOGIST NET ARCHITECT RIDGE HUERTA M.D. Performed By: #### B MP #### [facility] [address] [place] [address] Thyrotropin [Units/volume] i n Serum or PlasmaOrdered By: Ajit Pettit on 02-09-2023 TSH Qn 2.98 m[IU]/L 0.45-5.33 [facility] Triglyceride [Mass/volume] i n Serum or PlasmaOrdered By: Ajit Pettit on 02-09-2023 Triglyceride [Mass/Vol] 485 mg/dL 0-[address] [facility] Comment on above: If the triglyceride result is greater than 400, LDLC and related calculations cannot be calculated and resulted.TRIG ATP III CLASSIFICATIONTRIG less than 150 mg/dL NormalTRIG 150-199 mg/dL Borderline highTRIG 200-500 mg/dL High TRIG greater than 500 mg/dL Very highStandard traceable to the Center for Disease Conrtrol and Prevention (CDC) test method. Urea nitrogen [Mass/volume] in Serum or PlasmaOrdered By: Ajit Pettit on 02-09-2023 Urea nitrogen [Mass/Vol] 10 mg/dL 7-25 [facility] Urine Cultureon 02-09-2023 Bacteria identified Cx Nom (U) Reason for Exam Type 2 diabetes mellitus without complication, without long- Urine 75,000 colonies/ml mixed bacterial skin contaminants 2 Days PERFORMED BY: [place] [address] PATHOLOGIST [employer] ARCHIT[employer] RIDGE HUERTA M.D. Normal [facility] Comment on above: Performed By: #### B MP #### [address] [address] [facility] Urine culture routineOrdered By: Ajit Pettit on 02-09-2023 Bacteria identified Cx Nom (U) 2 Days [facility] WBC Auto (Bld) [#/Vol]Ordere d By: Ajit Pettit on 02-09-2023 WBC (Bld) [#/Vol] 13.2 10*3/uL 3.8-11.6 [facility] ACETONE SERUMon 01-29-2023 ACETONE Negative Normal NEGATIVE [facility] Comment on above: Performed By: #### A CETON #### [facility] [address] [place] [address] Dr. Vito Grimm CBC AUTO DIFFon 01-29-2023 BASO # 0.1 103/ul Normal 0.0-0.1 [facility] Comment on above: Performed By: #### C BC #### [facility] [address] [place] [address] Dr. Vito Grimm Basophils/100 WBC (Bld) 0.5 % Normal 0.2-2.0 [facility] Comment on above: Performed By: #### C BC #### [facility] [address] [place] [address] Dr. Vito Grimm EO # 0.1 103/ul Normal 0.0-0.7 [facility] Comment on above: Performed By: #### C BC #### [facility] [address] [place] [address] Dr. Vito Grimm Eosinophils/100 WBC (Bld) 0.7 % Critically low 0.9-7.0 [facility] Comment on above: Performed By: #### C BC #### [facility] [address] [place] [address] Dr. Vito Grimm Erythrocyte distribution width (RBC) [Ratio] 12.9 % Normal 11.0-15.0 [facility] Comment on above: Performed By: #### C BC #### [facility] [address] [place] [address] Dr. Vito Grimm Hematocrit (Bld) [Volume fraction] 39.0 % Normal 36.0-48.0 [facility] Comment on above: Performed By: #### C BC #### [facility] [address] [place] [address] Dr. Vito Grimm Hemoglobin (Bld) [Mass/Vol] 13.1 g/dL Normal 12.0-16.0 [facility] Comment on above: Performed By: #### C BC #### [facility] [address] [place] [address] Dr. Vito Grimm IG # 0.11 10e3/ul Critically high 0.00-0.03 [facility] Comment on above: Performed By: #### C BC #### [facility] [address] [place] [address] Dr. Vito Grimm IG % 0.8 % Critically high 0.0-0.5 [facility] Comment on above: Performed By: #### C BC #### [facility] [address] [place] [address] Dr. Vito Grimm LYMPH # 4.6 103/ul Critically high 1.2-3.8 [facility] Comment on above: Performed By: #### C BC #### [facility] [address] [place] [address] Dr. Vito Grimm Lymphocytes/100 WBC (Bld) 34.4 % Normal 20.5-60.0 [facility] Comment on above: Performed By: #### C BC #### [facility] [address] [place] [address] Dr. Vito Grimm MANUAL DIFF REQ NO Normal [facility] Comment on above: Performed By: #### C BC #### [facility] [address] [place] [address] Dr. Vito Grimm MCH (RBC) [Entitic mass] 29.9 pg Normal 26.7-34.0 [facility] Comment on above: Performed By: #### C BC #### [facility] [address] [place] [address] Dr. Vito Grimm MCHC (RBC) [Mass/Vol] 33.6 g/dL Normal 29.9-35.2 [facility] Comment on above: Performed By: #### C BC #### [facility] [address] [place] [address] Dr. Vito Grimm MCV (RBC) [Entitic vol] 89.0 fL Normal 81.0-99.0 [facility] Comment on above: Performed By: #### C BC #### [facility] [address] [place] [address] Dr. Vito Grimm MONO # 1.0 103/ul Critically high 0.3-0.8 [facility] Comment on above: Performed By: #### C BC #### [facility] [address] [place] [address] Dr. Vito Grimm Monocytes/100 WBC (Bld) 7.3 % Normal 1.7-12.0 [facility] Comment on above: Performed By: #### C BC #### [facility] [address] [place] [address] Dr. Vito Grimm NEUT # 7.5 103/ul Critically high 1.4-6.5 [facility] Comment on above: Performed By: #### C BC #### [facility] [address] [place] [address] Dr. Vito Grimm Neutrophils/100 WBC (Bld) 56.3 % Normal 43.0-75.0 [facility] Comment on above: Performed By: #### C BC #### [facility] [address] [place] [address] Dr. Vito Grimm Platelet mean volume (Bld) [Entitic vol] 9.6 fL Normal 9.5-13.5 [facility] Comment on above: Performed By: #### C BC #### [facility] [address] [place] [address] Dr. Vito Grimm PLT 272 103/ul Normal 150-450 [facility] Comment on above: Performed By: #### C BC #### [facility] [address] [place] [address] Dr. Vito Girmm RBC 4.38 106/ul Normal 4.20-5.40 [facility] Comment on above: Performed By: #### C BC #### [facility] [address] [place] [address] Dr. Vito Grimm WBC 13.4 103/ul Critically high 4.0-11.0 [facility] Comment on above: Performed By: #### C BC #### [facility] [address] [place] [address] Dr. Vito Grimm ER URINE PROFILEon 3 Bilirubin Ql (U) Negative Normal NEGATIVE [facility] Comment on above: Performed By: #### E RUR #### [facility] [address] [place] [address] Dr. Vito Grimm Clarity (U) SL CLOUDY Abnormal CLEAR [facility] Comment on above: Performed By: #### E RUR #### [facility] [address] [place] [address] Dr. Vito Grimm Color (U) LT. YELLOW Normal YELLOW [facility] Comment on above: Performed By: #### E RUR #### [facility] [address] [place] [address] Dr. Vito Grimm ERUAHD A micrscopic examina tion will be performed if indicated. Normal [facility] Comment on above: Performed By: #### E RUR #### [facility] [address] [place] [address] Dr. Vito Grimm Glucose Ql (U) >1000 Abnormal NEGATIVE [facility] Comment on above: Performed By: #### E RUR #### [facility] [address] [place] [address] Dr. Vito Grimm Hemoglobin Ql (U) Negative Normal NEGATIVE [facility] Comment on above: Performed By: #### E RUR #### [facility] [address] [place] [address] Dr. Vito Grimm Ketones Ql (U) Negative Normal NEGATIVE [facility] Comment on above: Performed By: #### E RUR #### [facility] [address] [place] [address] Dr. Vito Grimm LEUKOCYTES Negative Normal NEGATIVE [facility] Comment on above: Performed By: #### E RUR #### [facility] [address] [place] [address] Dr. Vito Grimm Nitrite Ql (U) Negative Normal NEGATIVE [facility] Comment on above: Performed By: #### E RUR #### [facility] [address] [place] [address] Dr. Vito Grimm pH (U) 5.5 [pH] Normal 5-9 [facility] Comment on above: Performed By: #### E RUR #### [facility] [address] [place] [address] Dr. Vito Grimm SPEC GRAVITY 1.010 Normal 1.005-<=1. 025 [facility] Comment on above: Performed By: #### E RUR #### [facility] [address] [place] [address] Dr. Viot Grimm UA PROTEIN Negative Normal NEGATIVE/ TRACE [facility] Comment on above: Performed By: #### E RUR #### [facility] [address] [place] [address] Dr. Vito Grimm UR MICRO IND NOT INDICATED Normal [facility] Comment on above: Performed By: #### E RUR #### [facility] [address] [place] [address] Dr. Vito Grimm Urobilinogen Qn (U) 0.2 {Helen'U}/dL Normal 0.2 - 1. 0 [facility] Comment on above: Performed By: #### E RUR #### [facility] [address] [place] [address] Dr. Vito Grimm POINT OF CARE GLUCOSEon 01-03 Glucose [Mass/Vol] 279 mg/dL Critically high 74-106 [facility] Comment on above: Performed By: #### P OCGLUC #### [facility] [address] [place] [address] Dr. Vito Grimm PROF 14(COMP METB)on 023 Albumin [Mass/Vol] 3.5 g/dL Normal 3.4-5.0 [facility] Comment on above: Performed By: #### C MP, HSTROPN #### [facility] [address] [place] [address] Dr. Vito Grimm Albumin/Globulin [Mass ratio] 1.0 {ratio} Normal [facility] Comment on above: Performed By: #### C MP, HSTROPN #### [facility] [address] [address] [address] Vito Grimm ALP [Catalytic activity/Vol] 85 U/L Normal 46-116 [facility] Comment on above: Performed By: #### C MP, HSTROPN #### [facility] [address] [address] [address] Vito Grimm ALT [Catalytic activity/Vol] 28 U/L Normal 14-59 [facility] Comment on above: Performed By: #### C MP, HSTROPN #### [facility] [address] [place] [address] Dr. Vito Grimm Anion gap [Moles/Vol] 15.9 mmol/L Normal [facility] Comment on above: Performed By: #### C MP, HSTROPN #### [facility] [address] [place] [address] Dr. Vito Grimm AST [Catalytic activity/Vol] 16 U/L Normal 15-37 [facility] Comment on above: Performed By: #### C MP, HSTROPN #### [facility] [address] [place] [address] Dr. Vito Grimm Bilirubin [Mass/Vol] 0.2 mg/dL Normal 0.2-1.0 [facility] Comment on above: Performed By: #### C MP, HSTROPN #### [facility] [address] [place] [address] Dr. Vito Grimm Calcium [Mass/Vol] 8.8 mg/dL Normal 8.5-10.1 [facility] Comment on above: Performed By: #### C MP, HSTROPN #### [facility] [address] [place] [address] Dr. Vito Grimm Chloride [Moles/Vol] 96 mmol/L Critically low 98-107 [facility] Comment on above: Performed By: #### C MP, HSTROPN #### [facility] [address] [place] [address] Dr. Vito Grimm CO2 [Moles/Vol] 24.1 mmol/L Normal 21.0-32.0 [facility] Comment on above: Performed By: #### C MP, HSTROPN #### [facility] [address] [address] [address] Vito Grimm Creatinine [Mass/Vol] 0.85 mg/dL Normal 0.55-1.02 [facility] Comment on above: Performed By: #### C MP, HSTROPN #### [facility] [address] [place] [address] Dr. Vito Grimm EGFR-AF [place] ISLANDER >60 Normal >=60 [facility] Comment on above: Performed By: #### C MP, HSTROPN #### [facility] [address] [place] [address] Dr. Vito Grimm EGFR-NON AF [place]ER >60 Normal >=60 [facility] Comment on above: Performed By: #### C MP, HSTROPN #### [facility] [address] [place] [address] Dr. Vito Grimm Globulin (S) [Mass/Vol] 3.6 g/dL Normal [facility] Comment on above: Performed By: #### C MP, HSTROPN #### [facility] [address] [place] [address] Dr. Vito Grimm Glucose [Mass/Vol] 350 mg/dL Critically high 74-106 [facility] Comment on above: Performed By: #### C MP, HSTROPN #### [facility] [address] [place] [address] Dr. Vito Grimm Potassium [Moles/Vol] 4.0 mmol/L Normal 3.5-5.1 [facility] Comment on above: Performed By: #### C MP, HSTROPN #### [facility] [address] [place] [address] Dr. Vito Grimm Protein [Mass/Vol] 7.1 g/dL Normal 6.4-8.2 [facility] Comment on above: Performed By: #### C MP, HSTROPN #### [facility] [address] [address] [address] Vito Grimm Sodium [Moles/Vol] 132 mmol/L Critically low 136-145 [facility] Comment on above: Performed By: #### C MP, HSTROPN #### [facility] [address] [address] [address] Vito Grimm Urea nitrogen [Mass/Vol] 10.0 mg/dL Normal 7.0-18.0 [facility] Comment on above: Performed By: #### C MP, HSTROPN #### [facility] [address] [address] [address] Vito Grimm Urea nitrogen/Creatinine [Mass ratio] 11.8 mg/mg Normal [facility] Comment on above: Performed By: #### C MP, HSTROPN #### [facility] [address] [place] [address] Dr. Vito Grimm TROPONIN, HIGH SENSITIVITYon 01-29-2023 HSTROP <4.0 Normal 4.0-51.3 [facility] Comment on above: Result Comment: CUT- OFF POINTS HAVE BEEN ESTABLISHED BASED ON THE FOURTH UNIVERSAL DEFINITIONS OF MYOCARDIAL INFARCTION. THE UPPER REFERENCE LIMIT (URL) OF TROPONIN, DEFINED THE 99TH PERCENTILE OF cTnI DISTRIBUTION IN A REFERENCE POPULATION, HAS BEEN CONFIRMED THE DECISION THRESHOLD FOR [place] DIAGNOSIS. Performed By: #### C MP, HSTROPN #### [facility] [address] [place] [address] Dr. Vito Grimm HCG ( test) IA.rapi d Ql (U)Ordered By: Kyler Miramontes on 11-18-2022 HCG ( test) Ql (U) Negative [facility] HCG,Urineon 11-18-2022 Beta HCG ( test) Ql (U) Negative Normal [facility] Comment on above: Result Comment: PERF ORMED BY: [address] [address] PATHOLOGIST NET ARCHITECT RIDGE HUERTA M.D. Performed By: #### C BC, LIPID, FE PRO, CMP, TSH3 wRFLX #### [address] [place] [address] [place] CBC AUTO DIFFon 11-12-2022 BASO # 0.1 103/ul Normal 0.0-0.1 [facility] Comment on above: Performed By: #### C MP, HSTROPN #### [facility] [address] [place] [address] Dr. Vito Grimm Basophils/100 WBC (Bld) 0.6 % Normal 0.2-2.0 [facility] Comment on above: Performed By: #### C MP, HSTROPN #### [facility] [address] [place] [address] Dr. Vito Grimm EO # 0.2 103/ul Normal 0.0-0.7 [facility] Comment on above: Performed By: #### C MP, HSTROPN #### [facility] [address] [place] [address] Dr. Vito Grimm Eosinophils/100 WBC (Bld) 1.1 % Normal 0.9-7.0 [facility] Comment on above: Performed By: #### C MP, HSTROPN #### [facility] [address] [place] [address] Dr. Vito Grimm Erythrocyte distribution width (RBC) [Ratio] 12.6 % Normal 11.0-15.0 [facility] Comment on above: Performed By: #### C MP, HSTROPN #### [facility] [address] [place] [address] Dr. Vito Grimm Hematocrit (Bld) [Volume fraction] 39.7 % Normal 36.0-48.0 [facility] Comment on above: Performed By: #### C MP, HSTROPN #### [facility] [address] [place] [address] Dr. Vito Grimm Hemoglobin (Bld) [Mass/Vol] 12.9 g/dL Normal 12.0-16.0 [facility] Comment on above: Performed By: #### C MP, HSTROPN #### [facility] [address] [place] [address] Dr. Vito Grimm IG # 0.07 10e3/ul Critically high 0.00-0.03 [facility] Comment on above: Performed By: #### C MATHIEU HSTROPN #### [facility] [address] [place] [address] Dr. Vito Grimm IG % 0.5 % Normal 0.0-0.5 [facility] Comment on above: Performed By: #### C MATHIEU HSTROPN #### [facility] [address] [place] [address] Dr. Vito Grimm LYMPH # 5.3 103/ul Critically high 1.2-3.8 [facility] Comment on above: Performed By: #### C MATHIEU HSTROPN #### [facility] [address] [place] [address] Dr. Vito Grimm Lymphocytes/100 WBC (Bld) 38.4 % Normal 20.5-60.0 [facility] Comment on above: Performed By: #### C MATHIEU HSTROPN #### [facility] [address] [place] [address] Dr. Vito Grimm MANUAL DIFF REQ NO Normal [facility] Comment on above: Performed By: #### C MATHIEU HSTROPN #### [facility] [address] [place] [address] Dr. Vito Grimm MCH (RBC) [Entitic mass] 29.7 pg Normal 26.7-34.0 [facility] Comment on above: Performed By: #### C MATHIEU HSTROPN #### [facility] [address] [place] [address] Dr. Vito Grimm MCHC (RBC) [Mass/Vol] 32.5 g/dL Normal 29.9-35.2 [facility] Comment on above: Performed By: #### C MATHIEU, HSTROPN #### [facility] [address] [place] [address] Dr. Vito Grimm MCV (RBC) [Entitic vol] 91.5 fL Normal 81.0-99.0 [facility] Comment on above: Performed By: #### C MATHIEU, HSTROPN #### [facility] [address] [place] [address] Dr. Vito Grimm MONO # 1.0 103/ul Critically high 0.3-0.8 [facility] Comment on above: Performed By: #### C MP, HSTROPN #### [facility] [address] [place] [address] Dr. Vito Grimm Monocytes/100 WBC (Bld) 7.3 % Normal 1.7-12.0 [facility] Comment on above: Performed By: #### C MP, HSTROPN #### [facility] [address] [place] [address] Dr. Vito Grimm NEUT # 7.2 103/ul Critically high 1.4-6.5 [facility] Comment on above: Performed By: #### C MP, HSTROPN #### [facility] [address] [place] [address] Dr. Vito Grimm Neutrophils/100 WBC (Bld) 52.1 % Normal 43.0-75.0 [facility] Comment on above: Performed By: #### C MP, HSTROPN #### [facility] [address] [place] [address] Dr. Vito Grimm Platelet mean volume (Bld) [Entitic vol] 9.4 fL Critically low 9.5-13.5 [facility] Comment on above: Performed By: #### C MP, HSTROPN #### [facility] [address] [place] [address] Dr. Vito Grimm PLT 297 103/ul Normal 150-450 [facility] Comment on above: Performed By: #### C MP, HSTROPN #### [facility] [address] [place] [address] Dr. Vito Grimm RBC 4.34 106/ul Normal 4.20-5.40 [facility] Comment on above: Performed By: #### C MP, HSTROPN #### [facility] [address] [place] [address] Dr. Vito Grimm WBC 13.9 103/ul Critically high 4.0-11.0 [facility] Comment on above: Performed By: #### C MP, HSTROPN #### [facility] [address] [place] [address] Dr. Vito Grimm DEPAKENE/ VALPROIC ACIDon DEPAKENE 55.9 ug/ml Normal 50.0-100.0 [facility] Comment on above: Performed By: #### V ALP #### [facility] [address] [place] [address] Dr. Vito Grimm LACTATE/LACTIC ACIDon 2022 Lactate [Moles/Vol] 3.6 mmol/L Critically high 0.4-1.9 [facility] Comment on above: Performed By: #### C MP, HSTROPN #### [facility] [address] [place] [address] Dr. Vito Grimm PROF 14(COMP METB)on 023 Albumin [Mass/Vol] 3.6 g/dL Normal 3.4-5.0 [facility] Comment on above: Performed By: #### C MP, HSTROPN #### [facility] [address] [place] [address] Dr. Vito Grimm Albumin/Globulin [Mass ratio] 1.1 {ratio} Normal [facility] Comment on above: Performed By: #### C MP, HSTROPN #### [facility] [address] [place] [address] Dr. Vito Grimm ALP [Catalytic activity/Vol] 57 U/L Normal 46-116 [facility] Comment on above: Performed By: #### C MP, HSTROPN #### [facility] [address] [place] [address] Dr. Vito Grimm ALT [Catalytic activity/Vol] 23 U/L Normal 14-59 [facility] Comment on above: Performed By: #### C MP, HSTROPN #### [facility] [address] [place] [address] Dr. Vito Grimm Anion gap [Moles/Vol] 17.0 mmol/L Normal [facility] Comment on above: Performed By: #### C MP, HSTROPN #### [facility] [address] [address] [address] Vito Grimm AST [Catalytic activity/Vol] 16 U/L Normal 15-37 [facility] Comment on above: Performed By: #### C MP, HSTROPN #### [facility] [address] [place] [address] Dr. Vito Grimm Bilirubin [Mass/Vol] 0.1 mg/dL Critically low 0.2-1.0 [facility] Comment on above: Performed By: #### C MP, HSTROPN #### [facility] [address] [place] [address] Dr. Vito Grimm Calcium [Mass/Vol] 8.8 mg/dL Normal 8.5-10.1 [facility] Comment on above: Performed By: #### C MP, HSTROPN #### [facility] [address] [place] [address] Dr. Vito Grimm Chloride [Moles/Vol] 101 mmol/L Normal 98-107 [facility] Comment on above: Performed By: #### C MP, HSTROPN #### [facility] [address] [place] [address] Dr. Vito Grimm CO2 [Moles/Vol] 23.5 mmol/L Normal 21.0-32.0 [facility] Comment on above: Performed By: #### C MP, HSTROPN #### [facility] [address] [place] [address] Dr. Vito Grimm Creatinine [Mass/Vol] 0.72 mg/dL Normal 0.55-1.02 [facility] Comment on above: Performed By: #### C MP, HSTROPN #### [facility] [address] [place] [address] Dr. Vito Grimm EGFR-AF [place] ISLANDER >60 Normal >=60 [facility] Comment on above: Performed By: #### C MP, HSTROPN #### [facility] [address] [place] [address] Dr. Vito Grimm EGFR-NON AF [place] ISLANDER >60 Normal >=60 [facility] Comment on above: Performed By: #### C MP, HSTROPN #### [facility] [address] [place] [address] Dr. Vito Grimm Globulin (S) [Mass/Vol] 3.4 g/dL Normal [facility] Comment on above: Performed By: #### C MP, HSTROPN #### [facility] [address] [place] [address] Dr. Vito Grimm Glucose [Mass/Vol] 146 mg/dL Critically high 74-106 [facility] Comment on above: Performed By: #### C MATHIEU, HSTROPN #### [facility] [address] [place] [address] Dr. Vito Grimm Potassium [Moles/Vol] 4.5 mmol/L Normal 3.5-5.1 [facility] Comment on above: Performed By: #### C MATHIEU, HSTROPN #### [facility] [address] [place] [address] Dr. Vito Grimm Protein [Mass/Vol] 7.0 g/dL Normal 6.4-8.2 [facility] Comment on above: Performed By: #### C MATHIEU, HSTROPN #### [facility] [address] [place] [address] Dr. Vito Grimm Sodium [Moles/Vol] 137 mmol/L Normal 136-145 [facility] Comment on above: Performed By: #### C MATHIEU, HSTROPN #### [facility] [address] [place] [address] Dr. Vito Grimm Urea nitrogen [Mass/Vol] 11.0 mg/dL Normal 7.0-18.0 [facility] Comment on above: Performed By: #### C MATHIEU, HSTROPN #### [facility] [address] [place] [address] Dr. Vito Grimm Urea nitrogen/Creatinine [Mass ratio] 15.3 mg/mg Normal [facility] Comment on above: Performed By: #### C MP, HSTROPN #### [facility] [address] [address] [address] Vito Grimm A1C with Estimated Average Michael hunt 11-05-2022 Glucose [Mass/Vol] 143 mg/dL Normal [facility] Comment on above: Order Comment: Reaso n for Exam Type 2 diabetes mellitus without complication, without long- Result Comment: PERF ORMED BY: [facility] [address] [place] [address] PATHOLOGIST NET ARCHITECT RIDGE HUERTA M.D. Performed By: #### C BC, LIPID, FE PRO, CMP, TSH3 wRFLX #### [facility] [address] HbA1c (Bld) [Mass fraction] 6.6 % High 4.3-5.6 [facility] Comment on above: Order Comment: Reaso n for Exam Type 2 diabetes mellitus without complication, without long- Result Comment: Incr eased risk for diabetes: 5.7 - 6.4 diabetes: >6.4 glycemic control for adults with diabetes: <7.0 Performed By: #### C BC, LIPID, FE PRO, CMP, TSH3 wRFLX #### [facility] [address] Albumin [Mass/volume] in Ser um or PlasmaOrdered By: Ajit Pettit on 11-05-2022 Albumin [Mass/Vol] 4.2 g/dL 3.2-5.5 [facility] Basophils Auto (Bld) [#/Vol] Ordered By: Ajit Pettit on 11-05-2022 Basophils (Bld) [#/Vol] 0.1 10*3/uL 0.0-0.2 [facility] Basophils/100 WBC Auto (Bld) Ordered By: Ajit Pettit on 11-05-2022 Basophils/100 WBC (Bld) 0.8 % . F [facility] Cholesterol [Mass/volume] in Serum or PlasmaOrdered By: Ajit Pettit on 11-05-2022 Cholesterol [Mass/Vol] 174 mg/dL 140-200 [facility] Comment on above: Chol less than 200 m g/dl low riskChol 201-239 mg/dl borderline riskChol 240 mg/dl and greater high risk Cholesterol in LDL Calc [Mas s/Vol]Ordered By: Ajit Pettit on 11-05-2022 Cholesterol in LDL [Mass/Vol] 66 mg/dL 0-100 [facility] Comment on above: LDL ATP III CLASSIFI CATIONLDL less than 100 mg/dL OptimalLDL 100-129 mg/dL Near or above optimalLDL 130-159 mg/dL Borderline highLDL 160-189 mg/dL HighLDL greater than 189 mg/dL Very high Cholesterol in VLDL Calc [Ma ss/Vol]Ordered By: Ajit Pettit on 11-05-2022 Cholesterol in VLDL [Mass/Vol] 66 mg/dL [facility] Comprehensive Metabolic Pane mark 11-05-2022 Albumin [Mass/Vol] 4.2 g/dL Normal 3.2-5.5 [facility] Comment on above: Order Comment: Reaso n for Exam Type 2 diabetes mellitus without complication, without long- Reason for Exam Vitamin D deficiency Performed By: #### C BC, LIPID, FE PRO, CMP, TSH3 wRFLX #### [facility] [address] [place] [address] [place] Albumin/Globulin [Mass ratio] 1.6 {ratio} Normal [facility] Comment on above: Order Comment: Reaso n for Exam Type 2 diabetes mellitus without complication, without long- Reason for Exam Vitamin D deficiency Performed By: #### C BC, LIPID, FE PRO, CMP, TSH3 wRFLX #### [facility] [address] [place] [address] [place] ALP [Catalytic activity/Vol] 52 U/L Normal 32-92 [facility] Comment on above: Order Comment: Reaso n for Exam Type 2 diabetes mellitus without complication, without long- Reason for Exam Vitamin D deficiency Performed By: #### C BC, LIPID, FE PRO, CMP, TSH3 wRFLX #### [facility] [address] [place] [address] [place] ALT [Catalytic activity/Vol] 16 U/L Normal 10-60 [facility] Comment on above: Order Comment: Reaso n for Exam Type 2 diabetes mellitus without complication, without long- Reason for Exam Vitamin D deficiency Performed By: #### C BC, LIPID, FE PRO, CMP, TSH3 wRFLX #### [facility] [address] [id number] [facility] Anion gap [Moles/Vol] 14.2 mmol/L Normal 6.0-15.0 [facility] Comment on above: Order Comment: Reaso n for Exam Type 2 diabetes mellitus without complication, without long- Reason for Exam Vitamin D deficiency Performed By: #### C BC, LIPID, FE PRO, CMP, TSH3 wRFLX #### [facility] [address] [id number] [facility] AST [Catalytic activity/Vol] 20 U/L Normal 10-42 [facility] Comment on above: Order Comment: Reaso n for Exam Type 2 diabetes mellitus without complication, without long- Reason for Exam Vitamin D deficiency Performed By: #### C BC, LIPID, FE PRO, CMP, TSH3 wRFLX #### [facility] [address] [place] [address] Bilirubin [Mass/Vol] 0.3 mg/dL Normal 0.3-1.2 [facility] Comment on above: Order Comment: Reaso n for Exam Type 2 diabetes mellitus without complication, without long- Reason for Exam Vitamin D deficiency Performed By: #### C BC, LIPID, FE PRO, CMP, TSH3 wRFLX #### [facility] [address] [place] [address] Calcium [Mass/Vol] 9.3 mg/dL Normal 8.2-10.2 [facility] Comment on above: Order Comment: Reaso n for Exam Type 2 diabetes mellitus without complication, without long- Reason for Exam Vitamin D deficiency Performed By: #### C BC, LIPID, FE PRO, CMP, TSH3 wRFLX #### [facility] [address] [id number] [place] Chloride [Moles/Vol] 99 mmol/L Normal 95-114 [facility] Comment on above: Order Comment: Reaso n for Exam Type 2 diabetes mellitus without complication, without long- Reason for Exam Vitamin D deficiency Performed By: #### C BC, LIPID, FE PRO, CMP, TSH3 wRFLX #### [facility] [address] CO2 [Moles/Vol] 23.1 mmol/L Normal 22.0-30.0 [facility] Comment on above: Order Comment: Reaso n for Exam Type 2 diabetes mellitus without complication, without long- Reason for Exam Vitamin D deficiency Performed By: #### C BC, LIPID, FE PRO, CMP, TSH3 wRFLX #### [facility] [address] [place] [address] Creatinine [Mass/Vol] 0.57 mg/dL Normal 0.44-1.03 [facility] Comment on above: Order Comment: Reaso n for Exam Type 2 diabetes mellitus without complication, without long- Reason for Exam Vitamin D deficiency Performed By: #### C BC, LIPID, FE PRO, CMP, TSH3 wRFLX #### [facility] [address] [place] [address] Estimated GFR ( Katalina > 60 Normal [facility] Comment on above: Order Comment: Reaso n for Exam Type 2 diabetes mellitus without complication, without long- Reason for Exam Vitamin D deficiency Result Comment: GFR estimated reference range: According to KDOQI guidelines, <60 ml/min/1.73m2 is sufficient to diagnose a patient with chronic kidney disease. Performed By: #### C BC, LIPID, FE PRO, CMP, TSH3 wRFLX #### [facility] [address] [place] [address] Estimated GFR (Non- Am > 60 [facility] Comment on above: Order Comment: Reaso n for Exam Type 2 diabetes mellitus without complication, without long- Reason for Exam Vitamin D deficiency Performed By: #### C BC, LIPID, FE PRO, CMP, TSH3 wRFLX #### [facility] [address] [place], [place] [id number] [place] Globulin (S) [Mass/Vol] 2.6 g/dL Normal [facility] Comment on above: Order Comment: Reaso n for Exam Type 2 diabetes mellitus without complication, without long- Reason for Exam Vitamin D deficiency Performed By: #### C BC, LIPID, FE PRO, CMP, TSH3 wRFLX #### [facility] [address] [place] [address] [place] Glucose [Mass/Vol] 96 mg/dL Normal 70-100 [facility] Comment on above: Order Comment: Reaso n for Exam Type 2 diabetes mellitus without complication, without long- Reason for Exam Vitamin D deficiency Result Comment: [facility] Glucose Reference Range is dependent on time and content of last meal. Glucose of more than 200 mg/dL in a nonstressed, ambulatory subject supports the diagnosis of Diabetes Mellitus. ADA recommended reference range Performed By: #### C BC, LIPID, FE PRO, CMP, TSH3 wRFLX #### [facility] [address] [id number] [facility] Potassium [Moles/Vol] 4.3 mmol/L Normal 3.5-5.1 [facility] Comment on above: Order Comment: Reaso n for Exam Type 2 diabetes mellitus without complication, without long- Reason for Exam Vitamin D deficiency Performed By: #### C BC, LIPID, FE PRO, CMP, TSH3 wRFLX #### [facility] [address] [place] [address] Protein [Mass/Vol] 6.8 g/dL Normal 6.1-7.9 [facility] Comment on above: Order Comment: Reaso n for Exam Type 2 diabetes mellitus without complication, without long- Reason for Exam Vitamin D deficiency Performed By: #### C BC, LIPID, FE PRO, CMP, TSH3 wRFLX #### [address] [address] [place] Sodium [Moles/Vol] 132 mmol/L Low 136-146 [facility] Comment on above: Order Comment: Reaso n for Exam Type 2 diabetes mellitus without complication, without long- Reason for Exam Vitamin D deficiency Performed By: #### C BC, LIPID, FE PRO, CMP, TSH3 wRFLX #### [facility] [address] [address] [place] Urea nitrogen [Mass/Vol] 7 mg/dL Low 9-23 [facility] Comment on above: Order Comment: Reaso n for Exam Type 2 diabetes mellitus without complication, without long- Reason for Exam Vitamin D deficiency Performed By: #### C BC, LIPID, FE PRO, CMP, TSH3 wRFLX #### [facility] [address] Creatinine and Glomerular fi ltration rate.predicted panel (S/P/Bld)Ordered By: Ajit Pettit on 11-05-2022 Creatinine [Mass/Vol] 0.57 mg/dL 0.44-1.03 [facility] Eosinophils Auto (Bld) [#/Vo l]Ordered By: Ajit Pettit on 11-05-2022 Eosinophils (Bld) [#/Vol] 0.1 10*3/uL 0.0-0.45 [facility] Eosinophils/100 WBC Auto (Bl d)Ordered By: Ajit Pettit on 11-05-2022 Eosinophils/100 WBC (Bld) 0.7 % . [facility] Erythrocyte distribution wid th Auto (RBC) [Ratio]Ordered By: Ajit Pettit on 11-05-2022 Erythrocyte distribution width (RBC) [Ratio] 13.5 % 11.9-15.3 [facility] Estimated glomerular filtrat ion rate (GFR) non- AmericanOrdered By: Ajit Pettit on 11-05-2022 GFR/1.73 sq M.predicted among non-blacks MDRD (S/P/Bld) [Vol rate/Area] > 60 mL/Min [facility] Globulin Calc (S) [Mass/Vol] Ordered By: Ajit Pettit on 11-05-2022 Globulin (S) [Mass/Vol] 2.6 g/dL F [facility] Glucose mean value [Mass/vol ume] in Blood Estimated from glycated hemoglobinOrdered By: Ajit Pettit on 11-05-2022 Average glucose Estimated from glycated hemoglobin (Bld) [Mass/Vol] 143 mg/dL [facility] HPV 16+18+31+33+35+39+45+51+ 52+56+58+59+68 DNA cervix probe + signal amplificOrdered By: Ajit Pettit on 11-05-2022 HPV 16+18+31+33+35+39+45+51 +52+56+58+59+68 DNA Probe+sig amp Ql (Cvx) Positive Negative [facility] Comment on above: This nucleic acid am plification test detects fourteen high-risk HPV types (16,18,31,33,35,39,45,51,52,56,58,59,66,68)without differentiation. Hematocrit Auto (Bld) [Volum e fraction]Ordered By: Ajit Pettit on 11-05-2022 Hematocrit (Bld) [Volume fraction] 40.1 % 34.0-46.4 [facility] Hemoglobin A1c percentageOrd ered By: Ajit Pettit on 11-05-2022 HbA1c (Bld) [Mass fraction] 6.6 % 4.3-5.6 [facility] Comment on above: Increased risk for d iabetes: 5.7 - 6.4diabetes: >6.4glycemic control for adults with diabetes: <7.0 Hemoglobin [Mass/volume] in BloodOrdered By: Ajit Pettit on 11-05-2022 Hemoglobin (Bld) [Mass/Vol] 13.2 g/dL 11.8-15.4 [facility] IGP,Aptima HPV,CtNg Age Gdln on 11-05-2022 IGP, Age Gdln Note Normal . [facility] Comment on above: Order Comment: Reaso n for Exam Cervical cancer screening Specimen Comment: [id number] Result Comment: TEST S RESULT FLAG UNITS REF RANGE LAB Clinician Provided Cytology Information No. of containers..01 ThinPrep Vial Age Algo ACOG Monisha... 30-65 01 FLAG LEGEND: L-Low Normal,H-High Normal,LL-Alert Low,HH-Alert High <-Panic Low,>-Panic High,A-Abnormal,AA-Critical Abnormal Performed at: 01 =G [facility] [address] Breanna Clark MD, Performed By: #### C BC, LIPID, FE PRO, CMP, TSH3 wRFLX #### [facility] [address] [place] [address] PAP HPV 16 Negative Normal Negative [facility] Comment on above: Order Comment: Reaso n for Exam Cervical cancer screening Specimen Comment: [id number] Performed By: #### C BC, LIPID, FE PRO, CMP, TSH3 wRFLX #### [facility] [address] [place] [address] PAP HPV 18,45 Negative Normal Negative [facility] Comment on above: Order Comment: Reaso n for Exam Cervical cancer screening Specimen Comment: [id number] Result Comment: Perf ormed at: =G - [facility] [address] [id number] Clerk: Breanna Clark MD, Phone: [phone] Performed at: - [facility] [id number] Clerk: Breanna Clark MD, Phone: [phone] PERFORMED BY: [place] [address] PATHOLOGIST NET ARCHITECT RIDGE HUERTA M.D. Performed By: #### C BC, LIPID, FE PRO, CMP, TSH3 wRFLX #### [facility] [address] [place] [address] PAP HPV HR Positive Critically abnormal Negative [facility] Comment on above: Order Comment: Reaso n for Exam Cervical cancer screening Specimen Comment: [id number] Result Comment: This nucleic acid amplification test detects fourteen high- risk HPV types (16,18,31,33,35,39,45,51,52,56,58,59,66,68) without differentiation. Performed By: #### C BC, LIPID, FE PRO, CMP, TSH3 wRFLX #### [facility] [address] Pap Image Guided Note Normal . [facility] Comment on above: Order Comment: Reaso n for Exam Cervical cancer screening Specimen Comment: [id number] Result Comment: TEST S RESULT FLAG UNITS REF RANGE LAB DIAGNOSIS: 02 NEGATIVE FOR INTRAEPITHELIAL LESION OR MALIGNANCY. THIS SPECIMEN WAS RESCREENED PART OF OUR BUILDING CONSTRUCTION PROFESSOR PROGRAM. Specimen adequacy: 02 Satisfactory for evaluation. Endocervical and/or squamous metaplastic cells (endocervical component) are present. Performed by: Charla Mirza, Collet Gluer (ASCP) QC reviewed by: Charla Thomason, Supervisory Collet Gluer (ASCP) . 02 Note: Note 02 The Pap smear is a screening test designed to aid in the detection of premalignant and malignant conditions of the uterine cervix. It is not a diagnostic procedure and should not be used as the sole means of detecting cervical cancer. Both false-positive and false-negative reports do occur. Test Methodology: Note 02 This liquid based ThinPrep(R) pap test was screened with the use of an image guided system. FLAG LEGEND: L-Low Normal,H-High Normal,LL-Alert Low,HH-Alert High <-Panic Low,>-Panic High,A-Abnormal,AA-Critical Abnormal Performed at: 02 WB [facility] [address] [place] [address] Breanna Clark MD, Performed By: #### C BC, LIPID, FE PRO, CMP, TSH3 wRFLX #### [facility] [address] Laboratory - Microbiology an d Antimicrobial susceptibilityOrdered By: Ajit Pettit on 11-05-2022 N. gonorrhoeae DNA NAYELY+probe Ql (Unsp spec) Negative Negative [facility] Comment on above: Performed at: =G - [facility] [id number] [place], [place] [id number] Director: Breanna Clark MD, Phone: [phone] Leukocytes [#/volume] correc cherie for nucleated erythrocytes in Blood by Automated counOrdered By: Ajit Pettit on 11-05-2022 WBC corrected for nucl RBC Auto (Bld) [#/Vol] 13.7 10*3/uL 3.8-11.6 [facility] Lipid Panelon 11-05-2022 Cholesterol [Mass/Vol] 174 mg/dL Normal 140-200 [facility] Comment on above: Order Comment: Reaso n for Exam Type 2 diabetes mellitus without complication, without long- Reason for Exam Vitamin D deficiency Result Comment: Chol less than 200 mg/dl low risk Chol 201-239 mg/dl borderline risk Chol 240 mg/dl and greater high risk Performed By: #### C BC, LIPID, FE PRO, CMP, TSH3 wRFLX #### [facility] [address] [place] [address] Cholesterol in HDL [Mass/Vol] 42 mg/dL Normal 35-85 [facility] Comment on above: Order Comment: Reaso n for Exam Type 2 diabetes mellitus without complication, without long- Reason for Exam Vitamin D deficiency Result Comment: HDL CHOL ATP-III CLASSIFICATION Cardiovascular Risk HDL > or equal to 60 mg/dL LOW HDL < 40 mg/dL HIGH Performed By: #### C BC, LIPID, FE PRO, CMP, TSH3 wRFLX #### [facility] [address] Cholesterol.total/Suellen sterol in HDL [Mass ratio] 4.1 {ratio} Normal <5.0 [facility] Comment on above: Order Comment: Reaso n for Exam Type 2 diabetes mellitus without complication, without long- Reason for Exam Vitamin D deficiency Performed By: #### C BC, LIPID, FE PRO, CMP, TSH3 wRFLX #### [facility] [address] [address] [facility] LDL Cholesterol,Calculated 66 mg/dL Normal 0-100 [facility] Comment on above: Order Comment: Reaso n for Exam Type 2 diabetes mellitus without complication, without long- Reason for Exam Vitamin D deficiency Result Comment: LDL ATP III CLASSIFICATION LDL less than 100 mg/dL Optimal LDL 100-129 mg/dL Near or above optimal LDL 130-159 mg/dL Borderline high LDL 160-189 mg/dL High LDL greater than 189 mg/dL Very high Performed By: #### C BC, LIPID, FE PRO, CMP, TSH3 wRFLX #### [address] Triglyceride w/Reflex 330 mg/dL High 35-149 [facility] Comment on above: Order Comment: Reaso n for Exam Type 2 diabetes mellitus without complication, without long- Reason for Exam Vitamin D deficiency Result Comment: TRIG ATP III CLASSIFICATION TRIG less than 150 mg/dL Normal TRIG 150-199 mg/dL Borderline high TRIG 200-500 mg/dL High TRIG greater than 500 mg/dL Very high Standard traceable to the Center for Disease Conrtrol and Prevention (CDC) test method. Performed By: #### C BC, LIPID, FE PRO, CMP, TSH3 wRFLX #### [facility] [address] [address] [facility] VLDL CHOLESTEROL 66 mg/dL Normal [facility] Comment on above: Order Comment: Reaso n for Exam Type 2 diabetes mellitus without complication, without long- Reason for Exam Vitamin D deficiency Performed By: #### C BC, LIPID, FE PRO, CMP, TSH3 wRFLX #### [facility] [address] [address] [place] Lymphocytes Auto (Bld) [#/Vo l]Ordered By: Ajit Pettit on 11-05-2022 Lymphocytes (Bld) [#/Vol] 5.1 10*3/uL 1.00-4.8 [facility] Lymphocytes/100 WBC Auto (Bl d)Ordered By: Ajit Pettit on 11-05-2022 Lymphocytes/100 WBC (Bld) 37.3 % . [facility] MCH Auto (RBC) [Entitic mass ]Ordered By: Ajit Pettit on 11-05-2022 MCH (RBC) [Entitic mass] 29.5 pg 24.7-34.3 [facility] MCHC Auto (RBC) [Mass/Vol]Or dered By: Ajit Pettit on 11-05-2022 MCHC (RBC) [Mass/Vol] 32.8 g/dL 32.0-35.0 [facility] MCV Auto (RBC) [Entitic vol] Ordered By: Ajit Pettit on 11-05-2022 MCV (RBC) [Entitic vol] 90.0 fL 80-[address] [facility] Microcytes LM Ql (Bld)Ordere d By: Ajit Pettit on 11-05-2022 Microcytes Ql (Bld) [facility] Monocytes Auto (Bld) [#/Vol] Ordered By: Ajit Pettit on 11-05-2022 Monocytes (Bld) [#/Vol] 1.1 10*3/uL 0.0-0.8 [facility] Monocytes/100 WBC Auto (Bld) Ordered By: Ajit Pettit on 11-05-2022 Monocytes/100 WBC (Bld) 8.3 % . F [facility] Neutrophils Auto (Bld) [#/Vo l]Ordered By: Ajit Pettit on 11-05-2022 Neutrophils (Bld) [#/Vol] 7.3 10*3/uL 1.8-7.7 [facility] Neutrophils/100 WBC Auto (Bl d)Ordered By: Ajit Pettit on 11-05-2022 Neutrophils/100 WBC (Bld) 52.9 % . [facility] No Panel InformationOrdered By: Ajit Pettit on 11-05-2022 25-Hydroxy Vitamin D Total 28.8 ng/mL 30-100 [facility] Comment on above: VITAMIN D STATUS 25( [place])VITAMIN D RANGE (ng/mL) Deficient <20 Insufficient 20 to <30Sufficient 30 to 100Reference: Jovanni MF,Dominique ARORA, Gillian NINA, et al. Evaluation,treatment, and prevention of vitamin D deficiency; an Endocrine Society clinical practice guideline. JCEM. 2010; 96(7):1911-30. Luz Elena albicans (NAYELY) Negative Negative [facility] Comment on above: This test was develo ped and its performance characteristicsdetermined by [employer] It has not been cleared orapproved by the Food and Drug Administration. Luz Elena glabrata (NAYELY) Negative Negative [facility] Comment on above: This test was develo ped and its performance characteristicsdetermined by [employer] It has not been cleared orapproved by the Food and Drug Administration. Chlamydia trachomatis (NAYELY) (LAB) Negative Negative [facility] Estimated GFR () > 60 mL/Min [facility] Comment on above: GFR estimated refere nce range: According to KDOQI guidelines, <60 ml/min/1.73m2 is sufficient to diagnose a patient with chronic kidney disease. Human Papilloma Virus Type 16 Negative Negative [facility] Human Papilloma Virus Type 18/45 Negative Negative [facility] Comment on above: Performed at: =G - L [facility] [id number] Director: Breanna Clark MD, Phone: [phone] at: WB - [facility] [id number] Director: Breanna Clark MD, Phone: [phone] IG Pap w/Ct-Ng Age Based (Off-Site) Note . [facility] Comment on above: TESTS RESULT FLAG UN ITS REF RANGE LAB - Clinician Provided Cytology Information No. of containers..01 ThinPrep VialAge Algo ACOG Monisha... FLAG LEGEND: L-Low Normal,H-High Normal,LL-Alert Low,HH-Alert High <-Panic Low,>-Panic High,A-Abnormal,AA-Critical Abnormal ------Performed at:01 =G [facility] [address] Breanna Clark MD, Pharmacy Creatinine Clearance (Chem N/A [facility] Thin Prep Pap Comment Note . [facility] Comment on above: TESTS RESULT FLAG UN ITS REF RANGE LAB -DIAGNOSIS: 02 NEGATIVE FOR INTRAEPITHELIAL LESION OR MALIGNANCY. 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 Endocervical and/or squamous metaplastic cells (endocervical component) are present.Performed by: 02 Larry Mirza, Collet Gluer (ASCP)QC reviewed by: 02 Sammie Thomason, Supervisory Collet Gluer (ASCP). 02Note: Note 02 The Pap smear is a screening test designed to aid in the detection of premalignant and malignant conditions of the uterine cervix. It is not a diagnostic procedure and should not be used as the sole means of detecting cervical cancer. Both false-positive and false-negative reports do occur.Test Methodology: Note 02 This liquid based ThinPrep(R) pap test was screened with the use of an image guided system. ----- FLAG LEGEND: L-Low Normal,H-High Normal,LL-Alert Low,HH-Alert High <-Panic Low,>-Panic High,A-Abnormal,AA-Critical Abnormal ------Performed at: [facility] [address] [place] [address] Breanna Clark MD, Trichomonas vaginalis (NAYELY) Negative Negative [facility] Nucleated erythrocytes [Pres ence] in Blood by Automated countOrdered By: Ajit Pettit on 11-05-2022 Nucleated RBC Auto Ql (Bld) 0.1 /100{WBC} 0-0.5 [facility] Platelet adequacy [Presence] in Blood by Light microscopyOrdered By: Ajit Pettit on 11-05-2022 Platelets LM Ql (Bld) Normal Normal [facility] Platelet mean volume Auto (B ld) [Entitic vol]Ordered By: Ajit Pettit on 11-05-2022 Platelet mean volume (Bld) [Entitic vol] 9.1 fL 6.3-10.7 [facility] Platelet morphology finding [Identifier] in BloodOrdered By: Ajit Pettit on 11-05-2022 Platelet morphology finding Nom (Bld) N/A [facility] Platelets Auto (Bld) [#/Vol] Ordered By: Ajit Pettit on 11-05-2022 Platelets (Bld) [#/Vol] 304 10*3/uL 150-450 [facility] Platelets Large [Presence] i n Blood by Light microscopyOrdered By: Ajit Pettit on 11-05-2022 Platelets Large LM Ql (Bld) Slight [facility] Polychromasia [Presence] in Blood by Light microscopyOrdered By: Ajit Pettit on 11-05-2022 Polychromasia LM Ql (Bld) Slight [facility] Protein [Mass/volume] in Ser um or PlasmaOrdered By: Ajitcristal Pettit on 11-05-2022 Protein [Mass/Vol] 6.8 g/dL 6.1-7.9 [facility] RBC Auto (Bld) [#/Vol]Ordere d By: Ajit Krupa on 11-05-2022 RBC (Bld) [#/Vol] 4.46 10*6/uL 3.60-5.00 [facility] RBC morphologyOrdered By: Cole nogueira Krupa on 11-05-2022 RBC morphology finding Nom (Bld) N/A [facility] Scan and CBCon 11-05-2022 Basophils (Bld) [#/Vol] 0.1 10*3/uL Normal 0.0-0.2 [facility] Comment on above: Order Comment: Reaso n for Exam Type 2 diabetes mellitus without complication, without long- Performed By: #### C BC, LIPID, FE PRO, CMP, TSH3 wRFLX #### [facility] [address] [place] [address] [place] Basophils/100 WBC (Bld) 0.8 % Normal . [facility] Comment on above: Order Comment: Reaso n for Exam Type 2 diabetes mellitus without complication, without long- Performed By: #### C BC, LIPID, FE PRO, CMP, TSH3 wRFLX #### [facility] [address] [place] [id number] [place] Eosinophils (Bld) [#/Vol] 0.1 10*3/uL Normal 0.0-0.45 [facility] Comment on above: Order Comment: Reaso n for Exam Type 2 diabetes mellitus without complication, without long- Performed By: #### C BC, LIPID, FE PRO, CMP, TSH3 wRFLX #### [facility] [address] [place] [id number] [place] Eosinophils/100 WBC (Bld) 0.7 % Normal . [facility] Comment on above: Order Comment: Reaso n for Exam Type 2 diabetes mellitus without complication, without long- Performed By: #### C BC, LIPID, FE PRO, CMP, TSH3 wRFLX #### [facility] [address] [place] [address] Erythrocyte distribution width (RBC) [Ratio] 13.5 % Normal 11.9-15.3 [facility] Comment on above: Order Comment: Reaso n for Exam Type 2 diabetes mellitus without complication, without long- Performed By: #### C BC, LIPID, FE PRO, CMP, TSH3 wRFLX #### [address] Hematocrit (Bld) [Volume fraction] 40.1 % Normal 34.0-46.4 [facility] Comment on above: Order Comment: Reaso n for Exam Type 2 diabetes mellitus without complication, without long- Performed By: #### C BC, LIPID, FE PRO, CMP, TSH3 wRFLX #### [address] Hemoglobin (Bld) [Mass/Vol] 13.2 g/dL Normal 11.8-15.4 [facility] Comment on above: Order Comment: Reaso n for Exam Type 2 diabetes mellitus without complication, without long- Performed By: #### C BC, LIPID, FE PRO, CMP, TSH3 wRFLX #### [address] Large Platelets Slight Normal [facility] Comment on above: Order Comment: Reaso n for Exam Type 2 diabetes mellitus without complication, without long- Result Comment: PERF ORMED BY: [place] [address] PATHOLOGIST NET ARCHITECT RIDGE HUERTA M.D. Performed By: #### C BC, LIPID, FE PRO, CMP, TSH3 wRFLX #### [place] [address] [place] Lymphocytes (Bld) [#/Vol] 5.1 10*3/uL High 1.00-4.8 [facility] Comment on above: Order Comment: Reaso n for Exam Type 2 diabetes mellitus without complication, without long- Performed By: #### C BC, LIPID, FE PRO, CMP, TSH3 wRFLX #### [address] Lymphocytes/100 WBC (Bld) 37.3 % Normal . [facility] Comment on above: Order Comment: Reaso n for Exam Type 2 diabetes mellitus without complication, without long- Performed By: #### C BC, LIPID, FE PRO, CMP, TSH3 wRFLX #### [address] MCH (RBC) [Entitic mass] 29.5 pg Normal 24.7-34.3 [facility] Comment on above: Order Comment: Reaso n for Exam Type 2 diabetes mellitus without complication, without long- Performed By: #### C BC, LIPID, FE PRO, CMP, TSH3 wRFLX #### [address] MCV (RBC) [Entitic vol] 90.0 fL Normal 80-[address] [facility] Comment on above: Order Comment: Reaso n for Exam Type 2 diabetes mellitus without complication, without long- Performed By: #### C BC, LIPID, FE PRO, CMP, TSH3 wRFLX #### [address] Mean Corpuscular HGB Conc 32.8 g/dL Normal 32.0-35.0 [facility] Comment on above: Order Comment: Reaso n for Exam Type 2 diabetes mellitus without complication, without long- Performed By: #### C BC, LIPID, FE PRO, CMP, TSH3 wRFLX #### [address] Microcytosis Slight Normal [facility] Comment on above: Order Comment: Reaso n for Exam Type 2 diabetes mellitus without complication, without long- Performed By: #### C BC, LIPID, FE PRO, CMP, TSH3 wRFLX #### [address] Monocytes (Bld) [#/Vol] 1.1 10*3/uL High 0.0-0.8 [facility] Comment on above: Order Comment: Reaso n for Exam Type 2 diabetes mellitus without complication, without long- Performed By: #### C BC, LIPID, FE PRO, CMP, TSH3 wRFLX #### [facility] [address] [place] [address] [place] Monocytes/100 WBC (Bld) 8.3 % Normal . [facility] Comment on above: Order Comment: Reaso n for Exam Type 2 diabetes mellitus without complication, without long- Performed By: #### C BC, LIPID, FE PRO, CMP, TSH3 wRFLX #### [facility] [address] [place] [address] [place] Neutrophils (Bld) [#/Vol] 7.3 10*3/uL Normal 1.8-7.7 [facility] Comment on above: Order Comment: Reaso n for Exam Type 2 diabetes mellitus without complication, without long- Performed By: #### C BC, LIPID, FE PRO, CMP, TSH3 wRFLX #### [facility] [address] [place] [address] [place] Neutrophils/100 WBC (Bld) 52.9 % Normal . [facility] Comment on above: Order Comment: Reaso n for Exam Type 2 diabetes mellitus without complication, without long- Performed By: #### C BC, LIPID, FE PRO, CMP, TSH3 wRFLX #### [facility] [address] [place] [address] [place] NRBC% 0.1 /100{WBC} Normal 0-0.5 [facility] Comment on above: Order Comment: Reaso n for Exam Type 2 diabetes mellitus without complication, without long- Performed By: #### C BC, LIPID, FE PRO, CMP, TSH3 wRFLX #### [facility] [address] [place] [address] [place] Platelet Estimate Normal Normal Normal [facility] Comment on above: Order Comment: Reaso n for Exam Type 2 diabetes mellitus without complication, without long- Performed By: #### C BC, LIPID, FE PRO, CMP, TSH3 wRFLX #### [facility] [address] Platelet mean volume (Bld) [Entitic vol] 9.1 fL Normal 6.3-10.7 [facility] Comment on above: Order Comment: Reaso n for Exam Type 2 diabetes mellitus without complication, without long- Performed By: #### C BC, LIPID, FE PRO, CMP, TSH3 wRFLX #### [facility] [address] Platelets (Bld) [#/Vol] 304 10*3/uL Normal 150-450 [facility] Comment on above: Order Comment: Reaso n for Exam Type 2 diabetes mellitus without complication, without long- Performed By: #### C BC, LIPID, FE PRO, CMP, TSH3 wRFLX #### [facility] [address] Polychromasia Slight Normal [facility] Comment on above: Order Comment: Reaso n for Exam Type 2 diabetes mellitus without complication, without long- Performed By: #### C BC, LIPID, FE PRO, CMP, TSH3 wRFLX #### [facility] [address] RBC (Bld) [#/Vol] 4.46 10*6/uL Normal 3.60-5.00 [facility] Comment on above: Order Comment: Reaso n for Exam Type 2 diabetes mellitus without complication, without long- Performed By: #### C BC, LIPID, FE PRO, CMP, TSH3 wRFLX #### [facility] [address] [place] [address] WBC (Bld) [#/Vol] 13.7 10*3/uL High 3.8-11.6 [facility] Comment on above: Order Comment: Reaso n for Exam Type 2 diabetes mellitus without complication, without long- Performed By: #### C BC, LIPID, FE PRO, CMP, TSH3 wRFLX #### [facility] [address] [place] [address] Serum or plasma alanine george otransferase measurement without P-5'-P (enzymatic activiOrdered By: Ajit Pettit on 11-05-2022 ALT No additional P-5'-P [Catalytic activity/Vol] 16 U/L 10-60 [facility] Serum or plasma albumin/glob ulin mass ratioOrdered By: Ajit Pettit on 11-05-2022 Albumin/Globulin [Mass ratio] 1.6 {ratio} [facility] Serum or plasma alkaline lalo sphatase measurement (enzymatic activity/volume)Ordered By: Ajit Pettit on 11-05-2022 ALP [Catalytic activity/Vol] 52 U/L 32-92 [facility] Serum or plasma anion gap de terminationOrdered By: Ajit Pettit on 11-05-2022 Anion gap [Moles/Vol] 14.2 mmol/L 6.0-15.0 [facility] Serum or plasma aspartate am inotransferase measurement (enzymatic activity/volume)Ordered By: Ajit Pettit on 11-05-2022 AST [Catalytic activity/Vol] 20 U/L 10-42 [facility] Serum or plasma calcium ashwini urement (mass/volume)Ordered By: Ajit Pettit on 11-05-2022 Calcium [Mass/Vol] 9.3 mg/dL 8.2-10.2 [facility] Serum or plasma chloride jett surement (moles/volume)Ordered By: Ajit Pettit on 11-05-2022 Chloride [Moles/Vol] 99 mmol/L 95-114 [facility] Serum or plasma glucose ashwini urement (mass/volume)Ordered By: Ajit Pettit on 11-05-2022 Glucose [Mass/Vol] 96 mg/dL 70-100 [facility] Comment on above: ADA recommended refe rence rangeRandom Glucose Reference Range is dependent on time and content of last meal. Glucose of more than 200 mg/dL in a nonstressed, ambulatory subject supports the diagnosis of Diabetes Mellitus. Serum or plasma high density lipoprotein (HDL) cholesterol measurementOrdered By: Ajit Pettit on 11-05-2022 Cholesterol in HDL [Mass/Vol] 42 mg/dL 35-85 [facility] Comment on above: HDL CHOL ATP-III CLA SSIFICATION Cardiovascular RiskHDL > or equal to 60 mg/dL LOWHDL < 40 mg/dL HIGH Serum or plasma potassium me asurement (moles/volume)Ordered By: Ajit Pettit on 11-05-2022 Potassium [Moles/Vol] 4.3 mmol/L 3.5-5.1 [facility] Serum or plasma sodium measu rement (moles/volume)Ordered By: Ajit Pettit on 11-05-2022 Sodium [Moles/Vol] 132 mmol/L 136-146 [facility] Serum or plasma total biliru bin measurement (mass/volume)Ordered By: Ajit Pettit on 11-05-2022 Bilirubin [Mass/Vol] 0.3 mg/dL 0.3-1.2 [facility] Serum or plasma total carbon dioxide measurement (moles/volume)Ordered By: Ajit Pettit on 11-05-2022 CO2 [Moles/Vol] 23.1 mmol/L 22.0-30.0 [facility] Serum or plasma total choles terol/high density lipoprotein (HDL) cholesterol mass ratOrdered By: Ajit Pettit on 11-05-2022 Cholesterol.total/Suellen sterol in HDL [Mass ratio] 4.1 {ratio} <5.0 [facility] Serum or plasma urea nitroge n measurement (mass/volume)Ordered By: Ajit Pettit on 11-05-2022 Urea nitrogen [Mass/Vol] 7 mg/dL 9-23 [facility] TSH DL <= 0.005 mIU/L QnOrde red By: Ajit Pettit on 11-05-2022 TSH Qn 4.07 m[IU]/L 0.45-5.33 [facility] Thyroid Stim Hormone w/Rflxo n 11-05-2022 Thyroid Stim Hormone w/Rflx 4.07 u[iU]/mL Normal 0.45-5.33 [facility] Comment on above: Order Comment: Reaso n for Exam Type 2 diabetes mellitus without complication, without long- Reason for Exam Vitamin D deficiency Performed By: #### C BC, LIPID, FE PRO, CMP, TSH3 wRFLX #### [address] Triglyceride [Mass/volume] i n Serum or PlasmaOrdered By: Ajit Pettit on 11-05-2022 Triglyceride [Mass/Vol] 330 mg/dL 35-[address] [facility] Comment on above: TRIG ATP III CLASSIF ICATIONTRIG less than 150 mg/dL NormalTRIG 150-199 mg/dL Borderline highTRIG 200-500 mg/dL High TRIG greater than 500 mg/dL Very highStandard traceable to the Center for Disease Conrtrol and Prevention (CDC) test method. Urine Cultureon 11-05-2022 Bacteria identified Cx Nom (U) Reason for Exam Urinary urgency Urine No Growth 2 Days PERFORMED BY: [place] [address] PATHOLOGIST NET ARCHITECT RIDGE HUERTA M.D. Normal [facility] Comment on above: Performed By: #### C BC, LIPID, FE PRO, CMP, TSH3 wRFLX #### [address] Urine culture routineOrdered By: Ajit Pettit on 11-05-2022 Bacteria identified Cx Nom (U) No Growth 2 Days [facility] Vaginal fluid Atopobium vagi rich DNA detection by probe and target amplification methoOrdered By: Ajit Pettit on 11-05-2022 A. vaginae DNA NAYELY+probe Ql (Vag fld) Low - 0 Score . [facility] Vaginal fluid Megasphaera sp ecies type 1 DNA detection by probe and target amplificatOrdered By: Ajit Pettit on 11-05-2022 Megasphaera sp type 1 DNA NAYELY+probe Ql (Vag fld) Low - 0 Score . [facility] Comment on above: Calculate total scor e by adding the 3 individual bacterialvaginosis (BV) marker scores together. Total score isinterpreted as follows:Total score 0-1: Indicates the absence of BV.Total score 2: Indeterminate for BV. Additional clinical data should be evaluated to establish a diagnosis.Total score 3-6: Indicates the presence of BV.This test was developed and its performance characteristicsdetermined by [facility]. It has not been cleared or approvedby the Food and Drug Administration. Vaginal fluid bacterial vagi nosis associated bacterium 2 DNA detection by probe and tOrdered By: Ajit Pettit on 11-05-2022 Bacterial vaginosis associated bacterium 2 DNA NAYELY+probe Ql (Vag fld) Low - 0 Score . [facility] Vaginitis Plus (VG+)on 11-05 Atopobium Vaginae Low - 0 Normal . [facility] Comment on above: Order Comment: Reaso n for Exam Cervical cancer screening Performed By: #### C BC, LIPID, FE PRO, CMP, TSH3 wRFLX #### [facility] [address] BVAB2 Low - 0 Normal . [facility] Comment on above: Order Comment: Reaso n for Exam Cervical cancer screening Performed By: #### C BC, LIPID, FE PRO, CMP, TSH3 wRFLX #### [place] [address] [place] Luz Elena Albicans, NAYELY Negative Normal Negative [facility] Comment on above: Order Comment: Reaso n for Exam Cervical cancer screening Result Comment: This test was developed and its performance characteristics determined by [facility]. It has not been cleared or approved by the Food and Drug Administration. Performed By: #### C BC, LIPID, FE PRO, CMP, TSH3 wRFLX #### [place] [address] [place] Luz Elena Glabrata, NAYELY Negative Normal Negative [facility] Comment on above: Order Comment: Reaso n for Exam Cervical cancer screening Result Comment: This test was developed and its performance characteristics determined by [facility]. It has not been cleared or approved by the Food and Drug Administration. PERFORMED BY: [place] [address] PATHOLOGIST NET ARCHITECT RIDGE HUERTA M.D. Performed By: #### C BC, LIPID, FE PRO, CMP, TSH3 wRFLX #### [place] [address] [place] Chlamydia Trachomotis, NAYELY Negative Normal Negative [facility] Comment on above: Order Comment: Reaso n for Exam Cervical cancer screening Performed By: #### C BC, LIPID, FE PRO, CMP, TSH3 wRFLX #### [place] [address] [place] Megasphaera Low - 0 Normal . [facility] Comment on above: Order Comment: Reaso n for Exam Cervical cancer screening Result Comment: Calc ulate total score by adding the 3 individual bacterial vaginosis (BV) marker scores together. Total score is interpreted as follows: Total score 0-1: Indicates the absence of BV. Total score 2: Indeterminate for BV. Additional clinical data should be evaluated to establish a diagnosis. Total score 3-6: Indicates the presence of BV. This test was developed and its performance characteristics determined by [facility]. It has not been cleared or approved by the Food and Drug Administration. Performed By: #### C BC, LIPID, FE PRO, CMP, TSH3 wRFLX #### [facility] [address] [place] [id number] [facility] Neisseria Gonorrhoeae, NAYELY Negative Normal Negative [facility] Comment on above: Order Comment: Reaso n for Exam Cervical cancer screening Result Comment: Perf ormed at: =G - [facility] [address] [id number] Clerk: Breanna Clark MD, Phone: [phone] Performed By: #### C BC, LIPID, FE PRO, CMP, TSH3 wRFLX #### [facility] [address] [place] [address] [facility] Tric Vag NAYELY Negative Normal Negative [facility] Comment on above: Order Comment: Reaso n for Exam Cervical cancer screening Performed By: #### C BC, LIPID, FE PRO, CMP, TSH3 wRFLX #### [facility] [address] [place] [id number] [facility] Vitamin D 25 Hydroxy Totalon 11-05-2022 Vitamin D 25 Hydroxy Total 28.8 ng/mL Low 30-100 [facility] Comment on above: Order Comment: Reaso n for Exam Type 2 diabetes mellitus without complication, without long- Reason for Exam Vitamin D deficiency Result Comment: MICHAEL MIN D STATUS 25(OH)VITAMIN D RANGE (ng/mL) Deficient <20 Insufficient 20 to <30 Sufficient 30 to 100 Reference: Jovanni ENCINAS,Dominique ARORA, Gillian NINA, et al. Evaluation,treatment, and prevention of vitamin D deficiency; an Endocrine Society clinical practice guideline. JCEM. 2010; 96(7):1911-30. PERFORMED BY: [place] [address] PATHOLOGIST NET ARCHITECT RIDGE HUERTA M.D. Performed By: #### C BC, LIPID, FE PRO, CMP, TSH3 wRFLX #### [address] WBC Auto (Bld) [#/Vol]Ordere d By: Ajit Pettit on 11-05-2022 WBC (Bld) [#/Vol] 13.7 10*3/uL 3.8-11.6 [facility] XR cervical spine w flex/ext on 11-03-2022 XR cervical spine w flex/ext [place] [facility] [address] [place] [address] XRay Report Signed Patient: Rachel Zuñiga MR#: [id number] 1 : 1980 Acct:[id number] Age/Sex: 42 / F ADM Date: 11/03/22 Loc: XD Room: Type: [facility] Attending Dr: Kyler Miraomntes MD Copies to: Kyler Miramontes MD Ordering Provider: Kyler Miramontes MD Date of Service: 11/03/22 XR/XR cervical spine w flex/ext: Neck pain CERVICAL SPINE 7 views: CLINICAL HISTORY: Pain in neck for years progressively getting worse. COMPARISON: Cervical spine series 09/23/2020 FINDINGS: Mild vertebral body height loss C5 vertebral body unchanged from prior study. This space heights appear maintained. Facet joints appear unremarkable. No prevertebral soft tissue swelling. No pathological motion. XR/XR cervical spine w flex/ext IMPRESSION: NO ACUTE BONY PROCESS. Impression dictated by: Andrés Yeboah Jr., D.O.11/03/2022 2:43 PM Dictation Location: [place] [address] Transcribed By: [facility] 11/03/22 144 Dictated By: Andrés Yeboah Jr, DO 11/03/22 1438 Signed By: 11/03/22 144 Normal [facility] Ambulatory Visit Summaryon 0 11-02-2022 Ambulatory Visit Summary RACHEL ZUÑIGA :1980 Visit Date:11/02/2022 Ambulatory Visit Instructions Your Diagnosis Urgency of urination Urethral stricture Feeling of incomplete bladder emptying Tests Performed Urnls Dip Stick Auto w/o Microscopy POC 36485 Your Care Team Attending Physician - Joshua SILVEIRA MD Primary Care Physician - AJIT PETTIT CNP This Is Your Medications List Contact prescribing physician if questions or concerns Non-Formulary Medication (Multi complete) acetaminophen acetaminophen (Tylenol) cephalexin (Keflex 500 mg Cap) diazepam (Valium 5 mg Tab) divalproex sodium (Depakote ER 500 mg Tab-ER) divalproex sodium (divalproex sodium 250 mg ER Tab) divalproex sodium (divalproex sodium 500 mg ER Tab) ergocalciferol (Vitamin D) gabapentin (gabapentin 600 mg Tab) gabapentin (gabapentin 800 mg Tab) lorazepam (LORazepam 0.5 mg Tab) melatonin (melatonin 1 mg oral tablet) melatonin (melatonin 5 mg oral tablet) meloxicam (meloxicam 15 mg oral tablet) meloxicam (meloxicam 15 mg oral tablet) metformin (metformin 500 mg oral tablet) sertraline (sertraline 50 mg Tab) simvastatin (simvastatin 5 mg Tab) tizanidine (tiZANidine 4 mg Tab) Procedures Performed Cystourethroscopy with dilation of urethral stricture (08/24/2022), Appendectomy, Cholecystectomy. Discharge Vitals Height 166 cm Height 65 in Weight 75.6 kg Weight 166.32 lb BMI 27.44 What to do next Scheduled Follow-Up Appointments Wednesday 10:45 AM EDT With: Joshua SILVEIRA MD Where: [facility] Patient Educationon 11-02-19 23 Patient Education Urology Urinary Frequency, Adult Urinary frequency means urinating more often than usual. You may urinate every 1?2 hours even though you drink a normal amount of fluid and do not have a bladder infection or condition. Although you urinate more often than normal, the total amount of urine produced in a day is normal. With urinary frequency, you may have an urgent need to urinate often. The stress and anxiety of needing to find a bathroom quickly can make this urge worse. This condition may go away on its own or you may need treatment at home. Home treatment may include bladder training, exercises, taking medicines, or making changes to your diet. Follow these instructions at home: Bladder health ? Keep a bladder diary if told by your health care provider. Keep track of: ? What you eat and drink. ? How often you urinate. ? How much you urinate. ? Follow a bladder training program if told by your health care provider. This may include: ? Learning to delay going to the bathroom. ? Double urinating (voiding). This helps if you are not completely emptying your bladder. ? Scheduled voiding. ? Do Kegel exercises as told by your health care provider. Kegel exercises strengthen the muscles that help control urination, which may help the condition. Eating and drinking ? If told by your health care provider, make diet changes, such as: ? Avoiding caffeine. ? Drinking fewer fluids, especially alcohol. ? Not drinking in the evening. ? Avoiding foods or drinks that may irritate the bladder. These include coffee, tea, soda, artificial sweeteners, citrus, tomato-based foods, and chocolate. ? Eating foods that help prevent or ease constipation. Constipation can make this condition worse. Your health care provider may recommend that you: ? Drink enough fluid to keep your urine pale yellow. ? Take uzqk-paj-tykrthf or prescription medicines. ? Eat foods that are high in fiber, such as beans, whole grains, and fresh fruits and vegetables. ? Limit foods that are high in fat and processed sugars, such as fried or sweet foods. General instructions ? Take rruy-bce-pxczawn and prescription medicines only as told by your health care provider. ? Keep all follow-up visits as told by your health care provider. This is important. Contact a health care provider if: ? You start urinating more often. ? You feel pain or irritation when you urinate. ? You notice blood in your urine. ? Your urine looks cloudy. ? You develop a fever. ? You begin vomiting. Get help right away if: ? You are unable to urinate. Summary ? Urinary frequency means urinating more often than usual. With urinary frequency, you may urinate every 1?2 hours even though you drink a normal amount of fluid and do not have a bladder infection or other bladder condition. ? Your health care provider may recommend that you keep a bladder diary, follow a bladder training program, or make dietary changes. ? If told by your health care provider, do Kegel exercises to strengthen the muscles that help control urination. ? Take fvbq-owy-nhcftzt and prescription medicines only as told by your health care provider. ? Contact a health care provider if your symptoms do not improve or get worse. This information is not intended to replace advice given to you by your health care provider. Make sure you discuss any questions you have with your health care provider. Document Released: 07/17/2010 Document Revised: 03/30/2019 Document Reviewed: 03/30/2019 [employer] Patient Education ? 2019 [employer] [facility] Urology Office/Clinic Noteon 11-02-2022 Urology Office/Clinic Note Chief Complaint Urinary problmes HPI Staff This is a 42 year old female here due to having problems with urination. Previous DX: feeling of incomplete bladder emptying, frequency and urgency. S/P Cysto done 08/24/22. Pt. states she has seen a COUNTER MAKER since last visit and she has cyst on both ovaries, Endometriosis and fibroid tumors. Dysuria: no Incomplete bladder emptying: occasionally Hematuria: Pt. states she is having dark brown urine Frequency: Pt. states with in 6-7 hours she urinated 5x, Pt. states 2-3x's in a day Urgency: Pt. states she has the feeling of urgency but when she gets to the bathroom not much out put. Nocturia: no Stream: Pt. states in the morning her stream is strong, after her stream is weak. Leaking: no Post void dripping: no Wearing pads/ Depends: no Urge incontinence: no Stress incontinence: no Incontinence without Sensory Awareness: no Abdominal pain: yes Flank pain: History of Present Illness Tests reviewed: reviewed UA I have reviewed the previous health record information and history for this patient from Dr. silveira I have reviewed and verified the staff HPI to be accurate for this encounter. There have been no associated fever, chills, flank pain, or blood in the urine. Denies any urinary infections since last encounter. Review of Systems PHQ Score Initial Depression Screen Score: 0 ROS - Provider Constitutional: denies weight loss, denies hot flashes. Eyes: denies eye problems. Gastrointestinal: denies nausea, denies vomiting. Cardiovascular: denies chest pain or angina. Integumentary: no dryness Musculoskeletal: denies musculoskeletal symptoms. ENMT: denies otolaryngeal symptoms. Respiratory: no shortness of breath. Heme/Lymph: denies easy bleeding tendency, denies easy bruising tendency. Psychiatric: no confusion, no anxiety. Genitourinary: See HPI. Physical Exam Vitals & Measurements HT: 65 in HT: 166 cm WT: 75.6 kg WT: 166.32 lb BMI: 27.44 General Appearance: alert , no acute distress, well nourished, well developed female. Genitourinary: bladder nonpalpable, no flank pain. Assessment/Plan 1. Urgency of urination (R39.15: Urgency of urination) Patient states she has to strain to urinate. Discussed with pt starting medication to help relax bladder. Will send pt Doxazosin 2mg qd. Discussed the medication side effects, and the patient will monitor closely for these, as well as for symptom improvement. If severe side effects occur, the medication should be stopped and the office notified. 2. Urethral stricture (N35.919: Unspecified urethral stricture, male, unspecified site) S/P cysto/UD done on 08/24/22. 3. Feeling of incomplete bladder emptying (R39.14: Feeling of incomplete bladder emptying) Previous PVR 75mL. Discussed urodynamics to test patient bladder function if medication fails. Overall the patient continues to have stranguria type symptoms. She is here with her friend today. She may have had some mild improvement with the first void in the morning but it subsequently gets more difficult into the bladder on subsequent urinations. She agrees with the plan to add a new medication in an attempt to decrease the tone of the bladder outlet. This will be the medication delineated above. The neck step will be possible urodynamic evaluation to be sure that she has no evidence of detrusor dysfunction if the above-mentioned medication does not improve symptomatology. She agrees with the plan. Follow-up With When Contact Information JORDANA BALDERAS, Joshua P, URL [address] [facility] [address] [place] [id number] Business (1) Additional Instructions: 6 month follow up Patient Education Urinary Frequency, Adult I, Bailey Pacheco , personally scribed for Dr. Silveira on 11/02/2022 11:30:04. . Documentation recorded by the scribe, Bailey Pacheco, accurately reflects the services(s) I performed and decisions made by me. Authenticated by Dr. Silveira on 11/02/2022 11:42:43. Problem List/Past Medical History Ongoing Anemia Anxiety Cervical cancer chlamydia Feeling of incomplete bladder emptying Fibromyalgia Gallstone Headache Heart murmur History of cervical cancer History of UTI Microscopic hematuria Panic disorder Smoker Smoker PURA (stress urinary incontinence, female) Urethral stricture Urgency of urination Urinary frequency Weak urinary stream Historical No qualifying data Procedure/Surgical History Cystourethroscopy with dilation of urethral stricture (08/24/2022), Appendectomy, Cholecystectomy. Medications acetaminophen Depakote ER 500 mg Tab-ER, Oral, Daily divalproex sodium 250 mg ER Tab, Oral, Daily divalproex sodium 500 mg ER Tab, Oral, Daily gabapentin 600 mg Tab, Oral, TID gabapentin 800 mg Tab, Oral, TID Keflex 500 mg Cap, 500 mg= 1 cap(s), Oral, Daily LORazepam 0.5 mg Tab, Oral, TID melatonin 1 mg oral t (more content not included)... Normal [facility] Comment on above: Result Comment: Elec tronically Signed By: Joshua SILVEIRA MD\.br\Date and Time Signed: 11/02/22 11:43 EST\.br\Electronically Co-Signed By: Bailey Pacheco\.br\Date and Time Co-Signed: 11/02/22 11:30 EST Provider Letteron 09-29-2022 Provider Letter (Inserted Image. Bre ble to display) September 29, 2022 RACHEL ZUÑIGA [address] [facility] [address] [place] [address] RACHEL ZUÑIGA 1980 Dear Rachel, You missed your scheduled appointment on: 09/29/2022 and the purpose of this letter is to inform you of our *No Show Policy*. Our appointment slots fill rapidly and when we have a no show appointment that time is lost. We could have used that time slot to care for a patient who needed to see one of our providers. Therefore, we ask that you call 24 hours in advance to cancel your appointment. This policy is in place so that we can meet the needs of all of our patients and we do appreciate your understanding. Sincerely, [facility] [address] [place] [address] [facility] Coding Summary.on 08-26-2022 Coding Summary. [id number] Gh0bWw+ PGhlYWQ+OL2XDNQgE86gePFouR6 CV3jTXS2OYDPDWYEOWH9VOE0ouT O2BBdiD6ExysZt HwamoNUrNT84NDf9ZXH6gTkhFNb zzB7ncQShN7b1MdMhYG27yG89VX msJNYjEcC3YrIapuqgdFMq F0pyYxOtlRJrOut+PHRhYmxlIHd tRXLuGEnzNJTfEeFkxXhiND1cYa 9yZGVyLWNvbGxhcHNlOiBj m6uaSDVfDAhpUO3xpTkzG5WumVC 1JENyw4m7Ty70nSK+AYJrAWQ5pP lmABenn116VdSty0veBPW3 fDOhAUouEOK8Z04qw9G9OHPfOLV aVMU3aHO3zR2xaUocejosE9FtqQ KvCsI4WSU1sSFyyC6poEbp ljpxnD7vHck+F24NEM6MYCLPKC2 JGap9E9WeHvzrtGG+JL43WBGgKT 67oHOpaSAsr2dliEt8VfFx HDSyWPK6lBahIKewe3JpIHJwL86 uoNJbf1X3ZBDqrVzikXKwTqEyuJ T9aF1iKZqcztmqc6akxnmn Qwkxm7vgqc17nU08G81yUBuaLFD nXAO0UWCsHSVknEadll2rkN0jLf 8+TTslj5lqp3lynIw7NbHs GPEmapPokDevXDT9z4UpNn62J2M pwPnqa3RrBnp2ef82gRZru7V4dH H2RWmwEVXspT2xGEuzTwJ0 GQCfSiWwqH43uGTsGZxlKw6bbAi olKasHX6kMBRpcacuWSMwcZ1rMI ChwSIlxLawOG2uDCPsngrg z840YsNdFNF2GRQdfUCgW0IceM3 zVdJwWFPsIMRlA3KigFIzHYgdV1 98VFthXoG4NMFvkzUnI1Ax YEAnlAssDvV3q7K2Jv6Gr1Trknc cCMR2WXquCODqYjNcIlPjVdV9J9 AqGqk1CCUlbCsxJV2pO0Uv NJMsitwbatxxcYJ3LJEfDOGqjX8 9sNQxJXiaMh3su4W4u826EXMaYV LsmT61Di9cpLtxSJDvoLDE nP5xwyxuv0ximepvQmChRDOwOUz 0EHy3AFDzcIbiVpSmBVO9TqQ1DP I8oNNfxC8wnYzcyixbbS6b Oyc+Q15ebI2nMJC3FUV1ypcvOTN diiZzXG04ZQ72Z4QyFtlodOAuwK U+BNLtnvCqmHjnHH4vEzSr o5ise1PvPTdyD6JlUXKzPOksCyl 6WYJsMWW0yWG4yI2pDQPnFOjxb4 V5vCQ9E8SjwaTwpi9aq9iz RZLjKAzrQ51rdDWqx5T5ZWEvgTQ 0NSEsvYskNbCqjE02Yfk+PGNvbG rjx0GyBlswr6yyt1agzOd2 WoZsJRVtgsByzNrwSOB2x7ZuLz4 7I18qYLknFTFjTEZpFJCnMGMibY drrz9jwG9dHy0+PGNvbCB3 pGV5jQ1kVHNtGsE8ZZncG294JvS uhCPtFtpsa4ebd1ujeQg9LxBlJU WvchPclOlnIBH3x2YnKb57 Y22nAUbuKLCbPNGnFEReSTJjxBa bwf2ipZ3eUb9+XL2mk1ayyd06oW 48dHI+UKOwMAZ0pGovCTtp VTKzfP7bDJdtYfH0LZPkTiJlzK6 2bEHqYWidCh2buOkkdRqtKD8iMF Uzqnlhb335NsKtl2kgNXUi cWNgFLqzGAT6F03nx8V0AYBpYLW fLAQ5uPG7eG5bsXejdkugnPAykG xgzlLqoBqyHCqxDIbzX109 IHRvcDsnPlBhdGllbnQgTmFtZTo 2T7UtLpw7QPIghFaoKM3krRAhMY pyMr0wuLljkCvtYH4jKOSl dgtia416EyZcv5hiZBWdyILpVAu rXIT2F33vg2Q6NJHaOBJxPMQ6tA T0qD5ohWtbpdclbQTueMde fkYssYvnEZpcPFgqS012BQUumQh vYgLnjyEeXRTjnWO4MZ59MW49wQ Zit2Z1zYA5H4GlTVOkucnh vatkrSU2ELWfSKEdeP31Zn2mrIg oAu0qCOFgPHQ4XGGfdZRfK6IxiH 9iFkOfOAHxMKGcB8OrtMBl DScgB801PHckJfX9LQYwnlSnY5D wGGTofUhjJjX6i5H2Zf7JP2W9BB 02YD83xCWrg6U2tGP5L3Vf OBWeteihvohqxXE5UDVuDLVklW5 6Xu8rgIziZu6rCNVxRWK1EHBnvF UaW7EruP4dWyEqDUHoCLHf P1AitTJsOEeoB740OHckAhQ0JRG rwbYiR6LpCJYcwIioCsQ2f7Y6Bf 0PTYv5AZ55CI15hVDsd7A4 cDL9M3UdQWVmuhbiqkjopSW7JMN qAFJrlH89Va8hdEhkOz1vVCLlVP L4AETcjZYbC2RxwZ6dBkYs HXClJNYpD2ZchNDwXYjcM557GRf tXrO3WIQxjtLpR1DbRKEnlTuhUw M5p1V8Ra9WPUDeOG32IHF2 uUO0JY43OO78I6CzKujejTEehKL +PHRhYmxlIHdpZHRoPScxMDAlJy NlbNyqIY9nCj2tOMIpEOHn hJrpfCMoXzJuh9wuVHHtJWmiWB3 tvIgcI3GwaJM6KQUks9t2Pz22E4 5jX9HxiCS+XDRuxLL4uZM4 hP2cFfWlSiV3LIikR744ZnBvrUC zIxapr3aty9xvyJi9UrB1SEHgqe EpeGpiRIA5u5CqPe28G08e IHdpZHRoPSIxNSUiIHZhbGlnbj0 oxH7fMs8+VEOurVX4gDC0bL8kXk LzBmI7IQblC391AuYgrVUv Gkhpk5ozr9vjuJo6IfVaTWDayyI xxKrdXPN2s7IkBk63S4DuhDrio5 HeRes8hg15oDZdj8K8zMP3 N8XkYYKpytgesFYjmPwbNH0oKME jszhcKMNuyJ5aFABxI8r3UkCcSr K4LCayW2UxexI6EUKpmTDb RXqiXDG4U52zo4P9LYCwZHHkDVN 1iHW7iL4puUvtqmcbkNKhtDyccx FalOyhJRyvNRfaC418CAQs bVwcIHDrsY9gWSVbgOXmhOajXT0 jWWNctrlnZl2UADKWGJKSCC8OVB IYUM67WQ32jSTrz2J1xEP6 O9McTEBgudiwyqjkzLQ7WUJoCWE qgI12nWSvBTrvYe6rs2B1z235RY HiGPHpoJ26Mu6jdYsdVCKn mKVGbY1lfmpmk8idwyduIqGqXHU kORk3NNn2TCMelVjdJyQqHCT2Ws E4FEP8rALotD6yuZkuhcoi yR9tKnh+HMRfNASvOSh7BPfulVP +RTKkEXA2oEglVRkbGEGbcY1xNU RtG5x8UbHeRuM3PFpsJ7Kp NWEavbbrOx43kA4vGpOsYzZ2GIg bX2QushN3PUFxgGRbPQmhBDI4Y4 7zi8I6RWVzOSOaDFG5eVQ0 yR8baIqibmcyzESedPnelnOxzIb aMUltZCmrE987LBUfaPvsKfGfWE ceKAPgXJ81HA42iVOlf5X6 nXD8N8CzEKAxzzqefmgmbKY5MVK cLUBdqZ94bRJzAPoyPv0uk0C5z7 27BVNuXHJclC69Zu0baXcs XLJqrKERjS1lmwbwu6oeizdqKrW nASNnTWc0ZJe6MYKoeSugLjQhKP P2MyP7MHM1fTSuwN1mxBcz fitlmE5aXrn+BaOsFFmmUM95DA5 2qCJko2Z4dHY6D1PkQMOgvbxqms tpgJN3MGQcXQRekT60oUMd GYdyFn0bq9Y9u126YAWwMNLlmX3 6Ne9koMvtTOXejMSAeQ7zaqwym8 osegjrEiUeFWVdVDs7VCi9 EPJlrGgmZjGpBVZ2DrA4RQL5jYS ikL8ozZngyahxrX6dZfl+T3V0cG K7xBZqrXxgyHU+HZ91ad12 K6HnSirnUwx8GIBnBFM0xSA4bZ0 hUQRnIZact4P4eZO5P1JjtcNqkp 1dd1zxZMArHSuzV83kbFVo c9R6HPFcbWD1CLOquDssPfOdbX3 3Oyc+SSVawPnoo1XzDwqwg4agq8 dbdBi7FyLdDYLlraJxtNhy FBY4d1ItEj95D38bBJhlXTSgJQE jUTJzGIQlkTqiee0psG7sHx7+PG VhfGO7lOF8sH9qPjBgElB7 UVxoI973NbUfcJTgWgbpb5txb1f neQk3DsUqJSAclbUfdJxnEYH7a4 EuSy91H3BolHjht6RxVsp5 ei17zZIvc4T8mAM7E0SmZFGnsyo zpHPamCyyQF8wMEBgpvokBRInoL 8sPBKvT3j7PcYtFbN8NAmu W3PpojW9NHZbfRDwELHkxIMCiE4 zqkmvs0eqlljwXuEsVSArBKn1OS p6FZVshUxcFwKdZRM6ReT8 JLY0pKAkdG0igVwdzqiheS9xWdy +DPr7s5szlPEhLU3iyLJ5JI20TX 00dFQpz4Z4wPH7B6ShWNPt vaodyhtniYQ9NTAmAHNigD95Wf9 upJzdRx5nIQTvJAG1TVXyiMKhI0 DvnQ5wFcCjOZByTBZoY5Zd eUFuWGwaF981GXliBdY9ZETtawP aW4DtSJQixDrcFaW2y7O1Gp2ZDC 62KP39KT75zRYmw1Z1gZB8 T0JaXQYeqhjwikqirMC0IOAyYBL htR56Ra5rqWggAo6lVEIdYFT0RA ZehRTxF8SylA4iWjXlILWg KHVaM0JzxKWxAFosR790PZrcNeV 4CTGmeoOmT8FjHHJtcGoyGdB6o2 F6Jv3HWb74PK86HR99dECl p8G0cBR9J9BiQBXwwlezekrxaPZ 2KOCeFPWvoX10Eo8nmGucAe6bDD YvIHN8BMWfkXDrP4DsnI7o GtDzMTWyBGKoR1UcgJFqYHmdS39 1ZDjsQvH7CFLhdwYtF7QyKPUftB ykFtU1x7S0Vq6LMNqbnip8 A4UrZulagIK+GA16LEYsNO09iEQ mcODzx1spsFc0MrKwROYtECH7eZ mfCIrgn0EtEQCsE42tkCBr c2U6 (more content not included)... Normal [facility] IntraOperative Documentson 1 10-25-2021 IntraOperative Documents [id number]:127 [facility] Consent for Procedure/Surger yon 08-24-2022 Consent for Procedure/Surgery [id number]#[id number]:127 Normal [facility] Consent for Treatmenton 08-05 Consent for Treatment [id number]#[id number]:127 Normal [facility] Inpatient Patient Summaryon 08-24-2022 Inpatient Patient Summary [place] [id number] Clinical Summary Person Information Name: RACHEL ZUÑIGA Age: 42 Years : 1980 Sex: Female PCP: AJIT PETTIT CNP Marital Status: Race: White Ethnicity: Non- or Language: Urdu Visit Id: Visit Reason: FEELING OF INCOMPLETE BLADDER EMPTY URINARY FREQUENCY Speciality: Acuity: Enc Type: Outpatient Med Service: Surgery Arrival: 08/24/2022 13:16:48 Discharge: Dispo Type: Address: [address] [place] [id number] Provider Notes: Diagnosis: Problems Active Urgency of urination Feeling of incomplete bladder emptying History of UTI Smoker Urinary frequency Microscopic hematuria PURA (stress urinary incontinence, female) Weak urinary stream History of cervical cancer Smoker chlamydia Anxiety Headache Heart murmur Gallstone Anemia Cervical cancer Fibromyalgia Panic disorder Smoking Status: Functional Status: Sensory Deficits: History of Falls: Mobility Assistance Prior to Admission: ADLs: Current Level of Assistance for Self-Care/Mobility: Cognitive Status: Allergies Ultram (seizures) Latex (Hives) Bactrim (Unknown) Laboratory or Other Results This Visit (last charted value for your 08/24/2022 visit) No Laboratory or Other Results This Visit Measurements: Height: 165 cm Weight: Blood Pressure: Not Valued / Not Valued BMI: Procedures No Procedures Documented Immunizations No Immunizations Documented This Visit Final Med List: acetaminophen acetaminophen (Tylenol) By Mouth. cephalexin (Keflex 500 mg Cap) 1 Capsules By Mouth every day. Take 1 tablet day before procedure, and then 1 tablet 12 hrs later. Refills: 0. diazepam (Valium 5 mg Tab) By Mouth every 8 hours. divalproex sodium (Depakote ER 500 mg Tab-ER) By Mouth every day. divalproex sodium (divalproex sodium 250 mg ER Tab) By Mouth every day. divalproex sodium (divalproex sodium 500 mg ER Tab) By Mouth every day. ergocalciferol (Vitamin D) By Mouth. gabapentin (gabapentin 600 mg Tab) By Mouth 3 times a day. gabapentin (gabapentin 800 mg Tab) By Mouth 3 times a day. lorazepam (LORazepam 0.5 mg Tab) By Mouth 3 times a day. melatonin (melatonin 1 mg oral tablet) 1 Tablets By Mouth once a day (at bedtime) as needed for insomnia. melatonin (melatonin 5 mg oral tablet) 1 Tablets By Mouth once a day (at bedtime) as needed for insomnia. meloxicam (meloxicam 15 mg oral tablet) By Mouth every day. meloxicam (meloxicam 15 mg oral tablet) By Mouth every day. metformin (metformin 500 mg oral tablet) By Mouth 2 times a day. Non-Formulary Medication (Multi complete) sertraline (sertraline 50 mg Tab) 1 Tablets By Mouth every day. simvastatin (simvastatin 5 mg Tab) By Mouth once a day (at bedtime). tizanidine (tiZANidine 4 mg Tab) By Mouth every 8 hours. Care Team Members: Attending Physician: COOK MD, Joshua P Consulting Physician: Referring Physician: Joshua SILVEIRA MD Follow up: With: Address: When: Joshua SILVEIRA [address], [address], [facility] [address] [place] [phone] Business (1) Within 6 weeks Comments: Call for followup appointment. Monitor the urinary low after the dilation today. Have a great Thanksgiving. Patient Education Information: EU - Cystoscopy with Urethral Dilation Discharge Instructions (Custom) [facility] IntraOperative Documentson 1 10-24-2021 IntraOperative Documents [id number]:127 [facility] IntraOperative Documents [id number]:127 [facility] Main OR Intraoperative Recor don 08-24-2022 Main OR Intraoperative Record IntraOp Document Type FTURO Summary Primary Physician: Joshua SILVEIRA MD Finalized Date/Time: 08/24/22 15:52:21 Pt. Name: RACHEL ZUÑIGA/Sex: 1980 Female Med Rec #: [id number] Physician: Joshua SIVLEIRA MD Financial #: [id number] Pt. Type: O Room/Bed: / Admit/Disch: 08/24/22 13:16:48 - Institution: Case Times FTURO Entry 1 Patient Times In Room 08/24/22 15:42:00 Out Room 08/24/22 15:52:00 Procedure Times Start 08/24/22 15:45:00 Stop 08/24/22 15:48:00 Anesthesia Times Last Modified By: Kathy Lund RN 08/24/22 15:52:14 Case Attendance FTURO Entry 1 Entry 2 Entry 3 Case Attendee Joshua SILVEIRA MD [employer] [facility] [email or web address]], Kathy Long RN Role Performed Surgeon - Primary Scrub - Primary Milieu Manager - Primary Time In 08/24/22 15:42:00 08/24/22 15:42:00 08/24/22 15:42:00 Time Out 08/24/22 15:52:00 08/24/22 15:52:00 08/24/22 15:52:00 Procedure CYSTOSCOPY LOCAL WITH CYSTOSCOPY LOCAL WITH CYSTOSCOPY LOCAL WITH URETHRAL DILATION(.) URETHRAL DILATION(.) URETHRAL DILATION(.) Comments [facility]ICOL [facility] [employer]UDENT OBSERVING Last Modified By: Kathy Lund RN, RN, Kathy Richmond RN 08/24/22 15:52:16 08/24/22 15:52:16 08/24/22 15:52:16 Surgical Procedures FTURO Entry 1 Procedure Description Procedure CYSTOSCOPY LOCAL WITH Modifiers . URETHRAL DILATION Surgeon Description CYSTOSCOPY LOCAL WITH URETHRAL DILATION Primary Procedure Yes Primary Surgeon Joshua SILVEIRA MD Start 08/24/22 15:45:00 Stop 08/24/22 15:48:00 Anesthesia Type Local Surgical Service Urology Wound Class 2 - Clean-Contaminated Last Modified By: Kathy Lund RN 08/24/22 15:48:59 General Case Data FTURO Pre-Care Text: Classifies surgical wound, implements aseptic technique, initiates traffic control Entry 1 Case Information OR URO 1 FT Case Level None Wound Class 2 - Clean-Contaminated Specialty Urology Preop Diagnosis FEELING OF INCOMPLETE Postop Same As Preop Yes BLADDER EMPTY URINARY FREQUENCY Postop Diagnosis FEELING OF INCOMPLETE Outcomes Met? Yes BLADDER EMPTY URINARY FREQUENCY Last Modified By: Kathy Lund RN 08/24/22 15:44:52 Post-Care Text: The patient is free from signs and symptoms of infection EU IntraOp - FTURO Pre-Care Text: Implements protective measures prior to operative or invasive procedure, confirms identity before the operative or invasive procedure, verifies operative procedure, surgical site, and laterality Entry 1 EU Perioperative Protocols Procedure(s) CYSTOSCOPY LOCAL WITH Patient Identity Birthday, ID Band URETHRAL DILATION(.) Verified (select at Check, Patient least 2): Participation Consents / H and P HandP, Surgery/Procedure Operative Site N/A Verified Consent Marking Verified Surgical Site Yes Laterality Verified Yes Verified Procedure Verified Yes Correct Patient Yes Position Verified Availability Equipment, Medication Time Out Joshua SILVEIRA MD, Verified (If Participants Velma Mcgill CST, Applicable) Kathy Lund RN Time Out Complete 08/24/22 15:43:00 Allergies Reviewed? Yes Allergies Reviewed Self/Patient With Body Position Supine Prep Area PERINEUM Prep Agents Betadine Solution Skin. Condition Dry, Warm, Unable to Description UNABLE TO VISUALIZE DUE Visualize TO PATIENT PARTIALLY CLOTHED Additional None Specimens Collected Vitals - EU Blood Pressure 145/96 Pulse 76 bpm Respirations 18 br/min SPO2 98 % EBL 0 IandO - EU Total Intake 0 mL Total Output 0 mL Outcomes Met? Yes Last Modified By: Kathy Lund RN 08/24/22 15:48:17 Post-Care Text: The patient is free from signs and symptoms of injury caused by extraneous objects Sign Out FTURO Entry 1 Before Patient Leaves OR Nurse verbally Yes Nurse verbally Yes confirms with the confirms with the team the name of team that the procedure(s) instrument, sponge, recorded and needle counts are correct (or N/A) Nurse verbally n/a Nurse verbally Yes confirms with the confirms with the team how the team whether there specimen is labeled are any equipment (including patient problems to be name), if applicable addressed Sign Out Complete 08/24/22 15:48:00 Last Modified By: Kathy Lund RN 08/24/22 15:48:58 Case Comments Finalized By: Kathy Lund RN Document Signatures Signed By: Kathy Lund RN 08/24/22 15:52 Normal [facility] Main OR Preoperative Recordo n 08-24-2022 Main OR Preoperative Record Holding Area Document Type FTURO Summary Primary Physician: Joshua SILVEIRA MD Finalized Date/Time: 08/24/22 14:57:36 Pt. Name: RACHEL ZUÑIGA/Sex: 1980 Female Med Rec #: [id number] Physician: Joshua SILVEIRA MD Financial #: [id number] Pt. Type: O Room/Bed: / Admit/Disch: 08/24/22 13:16:48 - Institution: Case Times Holding FTURO Pre-Care Text: Verifies consent for planned procedure, identifies individual values and wishes concerning care, includes family members in perioperative teaching Secures patient's records' belongings, and valuables, maintains patient's dignity and privacy, and maintains patient confidentiality Entry 1 In Holding 08/24/22 14:55:00 Outcomes Met? Yes Last Modified By: Natividad Green LPN 08/24/22 14:55:24 Post-Care Text: The patient participates in decisions affecting his or her perioperative plan of care The patient's right to privacy is maintained Surgery Checklist FTURO Entry 1 Patient Birthday, Patient Procedure History and Physical, Identification: Participation Verification: Surgical Consent, With Patient NPO after Midnight: No Date/Time: 08/24/22 14:55:00 Personal Items: Glasses, Jewelry Personal Items clothes Comment: Limitations: na Complaints of Pain: No Pain Comment: na Skin Integrity Intact, [place], Warm, & Dry Vitals - EU Blood Pressure 145/96 Pulse 76 bpm Respirations 18 br/min SPO2 98 % Last Modified By: Natividad Green LPN 08/24/22 14:57:31 General Comments: Temp:35.8 Finalized By: Natividad Green LPN Document Signatures Signed By: Natividad Green LPN 08/24/22 14:57 Normal [facility] Operative Reporton Operative Report Patient: TARIK ZUÑIGA Age: 42 years Sex: Female : 1980 Associated Diagnoses: None Author: Joshua SILVEIRA MD Procedure Operative Information Details: Date/ Time: 08/24/2022 15:51:00. Pre-Op Dx: Incomplete Bladder Emptying - R39.14, Urethral Stricture - Other Unspecified - N35.9. Post-Op Dx: Same. Anesthesia Type: Local. Procedure: Local Cystoscopy with Urethral Dilation. Complications: None. Risks/Benefits/Informed Consent: Surgical risks, benefits, details of the procedure have been explained to the patient, Full informed consent has been obtained. Intraoperative Information Prepped: Patient is brought back to the endoscopy suite, Patient is placed in modified dorso/lithotomy position, Patient prepped in the usual fashion with Betadine solution, 2% Xylocaine Jelly is placed per Urethra, After waiting several minutes the Cystoscope is introduced. The Urethra is: Tight, Tight at 18 Fr. . The Bladder is: Normal, Trabeculated Mild (1), No tumor, no stones, uterine imprint present. . The ureteral orifices: Show efflux of clear urine. The Urethra was dilated to: 30 [place] w/ sounds. Devices Implanted: None. Removal: Cystoscope is removed, The patient tolerated it well. Postoperative Information Discharge: Patient is discharged home with antibiotic coverage, Follow up arranged, F/U six weeks. . Normal [facility] Comment on above: Result Comment: Elec tronically Signed By: Joshua SILVEIRA MD\.br\Date and Time Signed: 08/24/22 15:53 EST Outpatient Surgery Discharge Instructionon 08-24-2022 Outpatient Surgery Discharge Instruction [id number]:[id number] Normal [facility] Outpatient Surgery Discharge Instruction [place] [id number] Patient Discharge Instructions PERSON INFORMATION Name: RACHEL ZUÑIGA Date of : 1980 Current Date: 08/24/2022 15:51:11 PHYSICIANS Admitting Physician: Joshua SILVEIRA MD Comment: Discharge Diagnosis: RACHEL ZUÑIGA has been given the following list of follow-up instructions, prescriptions, and patient education materials: IF UNABLE TO CONTACT YOUR PHYSICIAN AND YOU FEEL IT IS AN EMERGENCY, GO TO THE NEAREST EMERGENCY ROOM OR CALL 911 Follow up: With: Address: When: Joshua SILVEIRA [address] [place] [address], [address], [place] [id number] [facility] (1) Within 6 weeks Comments: Call for followup appointment. Monitor the urinary low after the dilation today. Have a great Thanksgiving. Comment: PATIENT EDUCATION INFORMATION Instructions: Cystoscopy with Urethral Dilation ? Voiding after the procedure: there may be some pain, urethral bleeding, burning, urgency, frequency and blood tinged urine following the procedure. These symptoms usually resolve within 2-5 days. Drink the amount of fluid it takes to keep the urine pink to yellow or clear in color. Drinking enough water and fluids will help to ease any discomfort after your procedure. ? If you are having problems that seem out of the ordinary, please call. ? If unable to contact your physician and you feel it is an emergency, go to the nearest emergency room or call 911 ? Diet ? you may resume your normal diet. ? Activity ? you may resume your normal activities ? Call if you have a fever over 100 degrees I, RACHEL ZUÑIGA, have received the attached patient education materials/instructions and have verbalized understanding: May we do a follow up call? Yes No I was present when discharge instructions were given Patient Signature Date Clinican/Nurse Signature Date You may receive a survey from Araseli Mckeon asking you to rate your care experience. Your feedback is important and will help us understand what we do well and how we can improve the quality of care we provide to you, your loved ones and our community. It?s an honor to serve you. Thank you for choosing [facility] Normal [facility] RAD - CT Reporton 08-06-2022 RAD - CT Report .[id number]. [id number]:127 Normal [facility] RAD - Ultrasound Reporton RAD - Ultrasound Report ..[id number]:127 Normal [facility] Physician Referralon 022 Physician Referral [id number]:127 Normal [facility] Patient Educationon 10-28-20 22 Patient Education Urology Urodynamic Testing What is urodynamic testing? Urodynamic tests are done to determine how well your lower urinary tract is working. The lower urinary tract includes your bladder and the part of your body that drains urine from the bladder (urethra). When your kidneys filter your blood, urine is stored in your bladder until you feel the urge to urinate. Urination requires coordination between the nerves and muscles of your bladder and urethra. When your lower urinary tract is working well, you should be able to: ? Start urinating when your bladder is full. ? Empty your bladder completely. ? Control the flow of your urine. Why do I need urodynamic testing? You may need urodynamic testing to help find the cause of any of these problems: ? Leaking urine (incontinence). ? Problems starting or stopping your urine flow. ? Frequent or painful urination. ? Frequent urinary tract infections. ? Being unable to empty your bladder completely. ? Having strong urges to pass urine (urgency). ? Having a weak flow of urine. How do I prepare for the tests? ? Ask your health care provider about changing or stopping your regular medicines. This is especially important if you are taking diabetes medicines or blood thinners. ? You may be asked to avoid urinating before coming to the test so that you arrive with a full bladder. ? Tell a health care provider about: ? Any allergies you have. ? All medicines you are taking, including vitamins, herbs, eye drops, creams, and uotq-cdl-odqsnav medicines. ? Whether you are or may be . What are the risks of this testing? Generally, these tests are safe. However, some of the tests have risks, including: ? Discomfort. ? Frequent urge to urinate. ? Bleeding. ? Infection. ? Allergic reactions to medicines or dyes (contrast material). How is urodynamic testing done? You may have various urodynamic tests. The tests may be done separately or may all be done during one testing visit. You may be given an antibiotic medicine before or after testing to help prevent infection. The types of tests that may be done include: Uroflowmetry This test measures how much urine you pass and how long it takes to pass. ? You will urinate into a certain type of toilet or device (flowmeter). ? The device will measure the volume and the time of your urine flow. ? These measurements will be sent to a computer that creates a graph of your urine flow. Postvoid residual measurement This test measures how much urine is left in your bladder after you urinate. ? The test may be done with ultrasound. In this method, sound waves and a computer will be used to create an image of your bladder. ? The test can also be done by inserting a thin, flexible tube (catheter) into your bladder after you urinate. The remaining urine will be removed through the catheter so it can be measured. ? Remaining urine will be measured in milliliters (mL). If you have more than 100 mL left in your bladder after you urinate, your bladder is not emptying as it should. Cystometric testing This test uses a type of bladder catheter that can measure pressure. ? You may be given a medicine to numb the area (local anesthetic). ? The area around the opening of your urethra will be cleaned. ? A urinary catheter will be passed through your urethra into your bladder and used to empty your bladder completely. ? Then a measuring catheter will be placed, and your bladder will be filled with warm, germ-free (sterile) water. ? Pressure measurements will be taken: ? As your bladder fills. ? When you feel the need to urinate. ? As your bladder is emptied. ? You may be asked to cough or bear down to check for leakage. ? In some cases, your bladder may be filled with a material that shows up on X-rays (contrast material) so that X-ray pictures can be taken during the test. Electromyogram This test measures the electrical activity of the nerves and muscles of your bladder and the opening of your urethra. ? Sticky patches (electrodes) will be placed near your rectum and urethra to measure electrical activity. ? The measurements will show how well your nerves are communicating with your muscles. What happens after the testing? ? You should be able to go home right away and do your usual activities. ? You may be told to drink a glass of water every 30 minutes for the first 2 hours after testing. ? Taking a warm bath or using warm, wet cloths (warm compresses) may relieve any discomfort near your urethra. ? Contact your health care provider if you have: ? Pain. ? Blood in your urine. ? Chills. ? Fever. What do the results mean? Talk with your health care provider about what your results mean. Some common causes for abnormal results from urodynamic tests include: ? Enlarged prostate in men. ? Overactive bladder. ? Urinary tract infection. ? Nervous system diseases. (more content not included)... Normal [facility] Urology Office/Clinic Noteon 07-31-2022 Urology Office/Clinic Note Chief Complaint re-referred for difficulty with urination HPI Staff Rachel(Former Dr. Cuellar pt) is here today re-referred for difficulty urinating/urinary retention. Previous DX(Dr. Cuellar): Weak urinary stream, PURA, microscopic hematuria, urinary frequency, smoker, History of UTI. PVR was 57ml. Dysuria: _Denies Incomplete bladder emptying: _Yes Hematuria: _Denies Frequency: _Pt states she feel like she has to go but can't go Urgency: _Denies Nocturia: 1x Stream: _First urination in the morning is good but through out the day she has to strain to void Leaking: _Denies Post void dripping: _Denies Wearing pads/ Depends: _Denies Urge incontinence: _Denies Stress incontinence: _Denies Incontinence without Sensory Awareness: _Denies Abdominal pain: _abdominal pressure Flank pain: _Denies Sexual complaints: _ History of Present Illness Tests Reviewed: Reviewed UA. I have reviewed and verified the staff HPI to be accurate for this encounter. I have reviewed the previous health record information and history for this patient from . There have been no associated fever, chills, flank pain, or blood in the urine. Denies any urinary infections since last encounter. Review of Systems ROS - Provider Constitutional: denies weight loss, denies hot flashes. Eyes: denies eye problems. Gastrointestinal: denies nausea, denies vomiting. Cardiovascular: denies chest pain or angina. Integumentary: no dryness Musculoskeletal: denies musculoskeletal symptoms. ENMT: denies otolaryngeal symptoms. Respiratory: no shortness of breath. Heme/Lymph: denies easy bleeding tendency, denies easy bruising tendency. Psychiatric: no confusion, no anxiety. Genitourinary: denies vaginal discharge, denies incontinence, denies dysuria, denies hematuria, denies urinary frequency, denies amenorrhea, denies menorrhagia, denies abnormal bleeding, denies pelvic pain, denies genital sores, and denies decreased libido. Physical Exam Vitals & Measurements HR: 70(Peripheral) RR: 16 BP: 136/82 General Appearance: alert , no acute distress, well nourished, well developed female. Genitourinary: bladder nonpalpable, no flank pain. Assessment/Plan 1. Feeling of incomplete bladder emptying (R39.14: Feeling of incomplete bladder emptying) - PVR 57mL - pt was diagnosed with diabetes 4 months ago - stated sx has been progressing over the years since she was last in our office - pt is aware that having diabetes can affect her bladder and cause urinary sx - Pt stated she does get UTI, kidney infections, and bladder infections, and sated she has had to be admitted into the hospital in the past. - recent imaging of her urinary tract was negative - discussed cysto and urodynamics to test her bladder functioning and to check for narrowing of her urinary outflow. Pt agrees with plan ABX sent to pt pharmacy - she was explained that if there is narrowing of her urinary channel then the next plan would be to have a UD. She is aware that if she does have to have a dilatation there is chances that she could have to have repeat dilations in the future. The risks and benefits for cystoscopy have been discussed. The risks include bleeding, infection, and irritation of the bladder and urinary channel, among others. The patient, after being informed of procedural details and after questions have been answered, wishes to proceed. Full informed consent has been obtained. Will order Local anesthesia. 2. Urinary frequency (R35.0: Frequency of micturition) - has worsen over the years 3. Urgency of urination (R39.15: Urgency of urination) - has to strain to urinate - will have urodynamics done Overall suspicion is high for the presence of urethral stenosis. The possibility certainly exists however that secondary to her diabetes mellitus, there may be a hypotonic neurogenic bladder component. This is the reason for the urodynamic evaluation. Antibiotic prophylaxis sent and the patient agrees to proceed. Follow-up With When Contact Information JORDANA BALDERAS, Joshua Dempsey, URL [address] [place] [id number] Additional Instructions: Cysto/ Urodynamics Patient Education Urodynamic Testing I, Viji Johnson, personally scribed for Dr. Silveira on 07/31/2022 12:12:13. . Documentation recorded by the scribe, Viji Johnson, accurately reflects the services(s) I performed and decisions made by me. Authenticated by Dr. Silveira on 07/31/2022 12:13:49. Problem List/Past Medical History Ongoing Anemia Anxiety Cervical cancer chlamydia Feeling of incomplete bladder emptying Fibromyalgia Gallstone Headache Heart murmur History of cervical cancer History of UTI Microscopic hematuria Panic disorder Smoker Smoker PURA (stress urinary incontinence, female) Urgency of urination Urinary frequency Weak urinary stream Historical No qual (more content not included)... Normal [facility] Comment on above: Result Comment: Elec tronically Signed By: Joshua SILVEIRA MD\.br\Date and Time Signed: 07/31/22 12:15 EDT\.br\Electronically Co-Signed By: Viji Johnson\.br\Date and Time Co-Signed: 07/31/22 12:12 EDT Basophils Auto (Bld) [#/Vol] Ordered By: Ajit Pettit on 07-08-2022 Basophils (Bld) [#/Vol] 0.1 10*3/uL 0.0-0.2 [facility] Basophils/100 WBC Auto (Bld) Ordered By: Ajit Pettit on 07-08-2022 Basophils/100 WBC (Bld) 0.4 % . F [facility] Blood hemoglobin measurement (mass/volume)Ordered By: Ajit Pettit on 07-08-2022 Hemoglobin (Bld) [Mass/Vol] 12.7 g/dL 11.8-15.4 [facility] Blood leukocytes automated c ount (number/volume)Ordered By: Ajit Pettit on 07-08-2022 WBC (Bld) [#/Vol] 14.3 10*3/uL 4.5-11.0 [facility] Body fluid albumin measureme nt (mass/volume)Ordered By: Ajit Pettit on 07-08-2022 Albumin (Body fld) [Mass/Vol] 3.6 g/dL 3.2-5.5 [facility] Creatinine and Glomerular fi ltration rate.predicted panel (S/P/Bld)Ordered By: Ajit Pettit on 07-08-2022 Creatinine [Mass/Vol] 0.66 mg/dL 0.44-1.03 [facility] Eosinophils Auto (Bld) [#/Vo l]Ordered By: Ajit Pettit on 07-08-2022 Eosinophils (Bld) [#/Vol] 0.2 10*3/uL 0.0-0.45 [facility] Eosinophils/100 WBC Auto (Bl d)Ordered By: Ajit Pettit on 07-08-2022 Eosinophils/100 WBC (Bld) 1.2 % . [facility] Erythrocyte distribution wid th Auto (RBC) [Ratio]Ordered By: Ajit Pettit on 07-08-2022 Erythrocyte distribution width (RBC) [Ratio] 13.5 % 11.9-15.3 [facility] Estimated glomerular filtrat ion rate (GFR) non- AmericanOrdered By: Ajit Pettit on 07-08-2022 GFR/1.73 sq M.predicted among non-blacks MDRD (S/P/Bld) [Vol rate/Area] > 60 mL/Min [facility] Globulin Calc (S) [Mass/Vol] Ordered By: Ajit Pettit on 07-08-2022 Globulin (S) [Mass/Vol] 2.4 g/dL F [facility] Hematocrit Auto (Bld) [Volum e fraction]Ordered By: Ajit Pettit on 07-08-2022 Hematocrit (Bld) [Volume fraction] 38.9 % 34.0-46.4 [facility] Laboratory - Hematology and Cell countsOrdered By: Ajit Pettit on 07-08-2022 Nucleated RBC/100 WBC (Bld) [Ratio] 0.0 % 0-0.5 [facility] Lymphocytes Auto (Bld) [#/Vo l]Ordered By: Ajit Pettit on 07-08-2022 Lymphocytes (Bld) [#/Vol] 4.5 10*3/uL 1.00-4.8 [facility] Lymphocytes/100 WBC Auto (Bl d)Ordered By: Ajit Pettit on 07-08-2022 Lymphocytes/100 WBC (Bld) 31.2 % . [facility] MCH Auto (RBC) [Entitic mass ]Ordered By: Ajit Pettit on 07-08-2022 MCH (RBC) [Entitic mass] 29.7 pg 24.7-34.3 [facility] MCHC Auto (RBC) [Mass/Vol]Or dered By: Ajit Pettit on 07-08-2022 MCHC (RBC) [Mass/Vol] 32.7 g/dL 32.0-35.0 [facility] MCV Auto (RBC) [Entitic vol] Ordered By: Ajit Pettit on 07-08-2022 MCV (RBC) [Entitic vol] 90.8 fL 80-[address] [facility] Monocytes Auto (Bld) [#/Vol] Ordered By: Ajit Pettit on 07-08-2022 Monocytes (Bld) [#/Vol] 1.1 10*3/uL 0.0-0.8 [facility] Monocytes/100 WBC Auto (Bld) Ordered By: Ajit Pettit on 07-08-2022 Monocytes/100 WBC (Bld) 7.8 % . F [facility] Neutrophils Auto (Bld) [#/Vo l]Ordered By: Ajit Pettit on 07-08-2022 Neutrophils (Bld) [#/Vol] 8.5 10*3/uL 1.8-7.7 [facility] Neutrophils/100 WBC Auto (Bl d)Ordered By: Ajit Pettit on 07-08-2022 Neutrophils/100 WBC (Bld) 59.4 % . [facility] No Panel InformationOrdered By: Ajit Pettit on 07-08-2022 Estimated GFR () > 60 mL/Min [facility] Comment on above: GFR estimated refere nce range: According to KDOQI guidelines, <60 ml/min/1.73m2 is sufficient to diagnose a patient with chronic kidney disease. Pharmacy Creatinine Clearance (Chem N/A [facility] Platelet mean volume Auto (B ld) [Entitic vol]Ordered By: Ajit Pettit on 07-08-2022 Platelet mean volume (Bld) [Entitic vol] 8.3 fL 6.3-10.7 [facility] Platelets Auto (Bld) [#/Vol] Ordered By: Ajit Pettit on 07-08-2022 Platelets (Bld) [#/Vol] 332 10*3/uL 150-450 [facility] Protein [Mass/volume] in Ser um or PlasmaOrdered By: Ajit Pettit on 07-08-2022 Protein [Mass/Vol] 6.0 g/dL 6.1-7.9 [facility] RBC Auto (Bld) [#/Vol]Ordere d By: Ajit Pettit on 07-08-2022 RBC (Bld) [#/Vol] 4.29 10*6/uL 3.60-5.00 [facility] Serum or plasma alanine george otransferase measurement without P-5'-P (enzymatic activiOrdered By: Ajit Pettit on 07-08-2022 ALT No additional P-5'-P [Catalytic activity/Vol] 26 U/L 60 [facility] Serum or plasma albumin/glob ulin mass ratioOrdered By: Ajit Pettit on 07-08-2022 Albumin/Globulin [Mass ratio] 1.5 {ratio} [facility] Serum or plasma alkaline lalo sphatase measurement (enzymatic activity/volume)Ordered By: Ajit Pettit on 07-08-2022 ALP [Catalytic activity/Vol] 46 U/L 32-92 [facility] Serum or plasma anion gap de terminationOrdered By: Ajit Pettit on 07-08-2022 Anion gap [Moles/Vol] 15.1 mmol/L 6.0-15.0 [facility] Serum or plasma aspartate am inotransferase measurement (enzymatic activity/volume)Ordered By: Ajit Pettit on 07-08-2022 AST [Catalytic activity/Vol] 31 U/L 10-42 [facility] Serum or plasma calcium ashwini urement (mass/volume)Ordered By: Ajit Pettit on 10-05-2022 Calcium [Mass/Vol] 9.3 mg/dL 8.2-10.2 [facility] Serum or plasma chloride jett surement (moles/volume)Ordered By: Ajit Pettit on 07-08-2022 Chloride [Moles/Vol] 101 mmol/L 95-114 [facility] Serum or plasma glucose ashwini urement (mass/volume)Ordered By: Ajit Pettit on 07-08-2022 Glucose [Mass/Vol] 129 mg/dL 70-100 [facility] Comment on above: ADA recommended refe rence rangeRandom Glucose Reference Range is dependent on time and content of last meal. Glucose of more than 200 mg/dL in a nonstressed, ambulatory subject supports the diagnosis of Diabetes Mellitus. Serum or plasma potassium me asurement (moles/volume)Ordered By: Ajit Pettit on 07-08-2022 Potassium [Moles/Vol] 5.0 mmol/L 3.5-5.1 [facility] Serum or plasma sodium measu rement (moles/volume)Ordered By: Ajit Pettit on 07-08-2022 Sodium [Moles/Vol] 135 mmol/L 136-146 [facility] Serum or plasma total biliru bin measurement (mass/volume)Ordered By: Ajit Pettit on 07-08-2022 Bilirubin [Mass/Vol] 0.5 mg/dL 0.3-1.2 [facility] Serum or plasma total carbon dioxide measurement (moles/volume)Ordered By: Ajit Pettit on 07-08-2022 CO2 [Moles/Vol] 23.9 mmol/L 22.0-30.0 [facility] Serum or plasma urea nitroge n measurement (mass/volume)Ordered By: Ajit Pettit on 07-08-2022 Urea nitrogen [Mass/Vol] 12 mg/dL - [facility] TSH DL <= 0.005 mIU/L QnOrde red By: Ajit Pettit on 06-24-2022 TSH Qn 4.14 m[IU]/L 0.45-5.33 [facility] Basophils Auto (Bld) [#/Vol] Ordered By: Ajit Pettit on 06-02-2022 Basophils (Bld) [#/Vol] 0.1 10*3/uL 0.0-0.2 [facility] Basophils/100 WBC Auto (Bld) Ordered By: Ajit Pettit on 06-02-2022 Basophils/100 WBC (Bld) 0.9 % . F [facility] Blood hemoglobin measurement (mass/volume)Ordered By: Ajit Pettit on 06-02-2022 Hemoglobin (Bld) [Mass/Vol] 12.9 g/dL 11.8-15.4 [facility] Blood leukocytes automated c ount (number/volume)Ordered By: Ajit Pettit on 06-02-2022 WBC (Bld) [#/Vol] 16.8 10*3/uL 4.5-11.0 [facility] Body fluid albumin measureme nt (mass/volume)Ordered By: Ajit Pettit on 06-02-2022 Albumin (Body fld) [Mass/Vol] 3.5 g/dL 3.2-5.5 [facility] Creatinine and Glomerular fi ltration rate.predicted panel (S/P/Bld)Ordered By: Ajit Pettit on 06-02-2022 Creatinine [Mass/Vol] 0.58 mg/dL 0.44-1.03 [facility] Eosinophils Auto (Bld) [#/Vo l]Ordered By: Ajit Pettit on 06-02-2022 Eosinophils (Bld) [#/Vol] 0.1 10*3/uL 0.0-0.45 [facility] Eosinophils/100 WBC Auto (Bl d)Ordered By: Ajit Pettit on 06-02-2022 Eosinophils/100 WBC (Bld) 0.7 % . [facility] Erythrocyte distribution wid th Auto (RBC) [Ratio]Ordered By: Ajit Pettit on 06-02-2022 Erythrocyte distribution width (RBC) [Ratio] 13.3 % 11.9-15.3 [facility] Estimated glomerular filtrat ion rate (GFR) non- AmericanOrdered By: Ajit Pettit on 06-02-2022 GFR/1.73 sq M.predicted among non-blacks MDRD (S/P/Bld) [Vol rate/Area] > 60 mL/Min [facility] Globulin Calc (S) [Mass/Vol] Ordered By: Ajit Pettit on 06-02-2022 Globulin (S) [Mass/Vol] 2.5 g/dL F [facility] Hematocrit Auto (Bld) [Volum e fraction]Ordered By: Ajit Pettit on 06-02-2022 Hematocrit (Bld) [Volume fraction] 38.8 % 34.0-46.4 [facility] Laboratory - Hematology and Cell countsOrdered By: Ajit Pettit on 06-02-2022 Nucleated RBC/100 WBC (Bld) [Ratio] 0.0 % 0-0.5 [facility] Lymphocytes Auto (Bld) [#/Vo l]Ordered By: Ajit Pettit on 06-02-2022 Lymphocytes (Bld) [#/Vol] 3.4 10*3/uL 1.00-4.8 [facility] Lymphocytes/100 WBC Auto (Bl d)Ordered By: Ajit Pettit on 06-02-2022 Lymphocytes/100 WBC (Bld) 20.3 % . [facility] MCH Auto (RBC) [Entitic mass ]Ordered By: Ajit Pettit on 06-02-2022 MCH (RBC) [Entitic mass] 30.3 pg 24.7-34.3 [facility] MCHC Auto (RBC) [Mass/Vol]Or dered By: Ajit Pettit on 06-02-2022 MCHC (RBC) [Mass/Vol] 33.2 g/dL 32.0-35.0 [facility] MCV Auto (RBC) [Entitic vol] Ordered By: Ajit Millanc on 06-02-2022 MCV (RBC) [Entitic vol] 91.1 fL 80-[address] [facility] Monocytes Auto (Bld) [#/Vol] Ordered By: Ajit Lariossic on 06-02-2022 Monocytes (Bld) [#/Vol] 1.2 10*3/uL 0.0-0.8 [facility] Monocytes/100 WBC Auto (Bld) Ordered By: Ajit Lariossic on 08-30-2022 Monocytes/100 WBC (Bld) 7.2 % . F [facility] Neutrophils Auto (Bld) [#/Vo l]Ordered By: Ajit Pettit on 06-02-2022 Neutrophils (Bld) [#/Vol] 11.9 10*3/uL 1.8-7.7 [facility] Neutrophils/100 WBC Auto (Bl d)Ordered By: Ajit Pettit on 06-02-2022 Neutrophils/100 WBC (Bld) 70.9 % . [facility] No Panel InformationOrdered By: Ajit Pettit on 06-02-2022 Estimated GFR () > 60 mL/Min [facility] Comment on above: GFR estimated refere nce range: According to KDOQI guidelines, <60 ml/min/1.73m2 is sufficient to diagnose a patient with chronic kidney disease. Pharmacy Creatinine Clearance (Chem N/A [facility] Platelet mean volume Auto (B ld) [Entitic vol]Ordered By: Ajit Pettit on 06-02-2022 Platelet mean volume (Bld) [Entitic vol] 9.2 fL 6.3-10.7 [facility] Platelets Auto (Bld) [#/Vol] Ordered By: Ajit Pettit on 06-02-2022 Platelets (Bld) [#/Vol] 313 10*3/uL 150-450 [facility] Protein [Mass/volume] in Ser um or PlasmaOrdered By: Ajit Pettit on 06-02-2022 Protein [Mass/Vol] 6.0 g/dL 6.1-7.9 [facility] RBC Auto (Bld) [#/Vol]Ordere d By: Ajit Pettit on 06-02-2022 RBC (Bld) [#/Vol] 4.26 10*6/uL 3.60-5.00 [facility] Serum or plasma alanine george otransferase measurement without P-5'-P (enzymatic activiOrdered By: Ajit Pettit on 06-02-2022 ALT No additional P-5'-P [Catalytic activity/Vol] 20 U/L 10-60 [facility] Serum or plasma albumin/glob ulin mass ratioOrdered By: Ajit Pettit on 06-02-2022 Albumin/Globulin [Mass ratio] 1.4 {ratio} [facility] Serum or plasma alkaline lalo sphatase measurement (enzymatic activity/volume)Ordered By: Ajit Pettit on 06-02-2022 ALP [Catalytic activity/Vol] 48 U/L 32-92 [facility] Serum or plasma anion gap de terminationOrdered By: Ajit Pettit on 06-02-2022 Anion gap [Moles/Vol] 15.8 mmol/L 6.0-15.0 [facility] Serum or plasma aspartate am inotransferase measurement (enzymatic activity/volume)Ordered By: Ajit Pettit on 06-02-2022 AST [Catalytic activity/Vol] 21 U/L 10-42 [facility] Serum or plasma calcium ashwini urement (mass/volume)Ordered By: Ajit Pettit on 06-02-2022 Calcium [Mass/Vol] 9.1 mg/dL 8.2-10.2 [facility] Serum or plasma chloride jett surement (moles/volume)Ordered By: Ajit Pettit on 06-02-2022 Chloride [Moles/Vol] 100 mmol/L 95-114 [facility] Serum or plasma glucose ashwini urement (mass/volume)Ordered By: Ajit Pettit on 06-02-2022 Glucose [Mass/Vol] 141 mg/dL 70-100 [facility] Comment on above: ADA recommended refe rence range Random Glucose Reference Range is dependent on time and content of last meal. Glucose of more than 200 mg/dL in a nonstressed, ambulatory subject supports the diagnosis of Diabetes Mellitus. ADA recommended refe rence rangeRandom Glucose Reference Range is dependent on time and content of last meal. Glucose of more than 200 mg/dL in a nonstressed, ambulatory subject supports the diagnosis of Diabetes Mellitus. Serum or plasma potassium me asurement (moles/volume)Ordered By: Ajit Pettit on 06-02-2022 Potassium [Moles/Vol] 4.3 mmol/L 3.5-5.1 [facility] Serum or plasma sodium measu rement (moles/volume)Ordered By: Ajit Pettit on 06-02-2022 Sodium [Moles/Vol] 132 mmol/L 136-146 [facility] Serum or plasma total biliru bin measurement (mass/volume)Ordered By: Ajit Pettit on 06-02-2022 Bilirubin [Mass/Vol] 0.5 mg/dL 0.3-1.2 [facility] Serum or plasma total carbon dioxide measurement (moles/volume)Ordered By: Ajit Pettit on 06-02-2022 CO2 [Moles/Vol] 20.5 mmol/L 22.0-30.0 [facility] Serum or plasma urea nitroge n measurement (mass/volume)Ordered By: Ajit Pettit on 06-02-2022 Urea nitrogen [Mass/Vol] 12 mg/dL 9-23 [facility] TSH DL <= 0.005 mIU/L QnOrde red By: Ajit Pettit on 06-02-2022 TSH Qn 2.06 m[IU]/L 0.45-5.33 [facility] Basophils Auto (Bld) [#/Vol] Ordered By: Jasmin Velázquez on 05-27-2022 Basophils (Bld) [#/Vol] 0.1 10*3/uL 0.0-0.2 [facility] Basophils/100 WBC Auto (Bld) Ordered By: Jasmin Velázquez on 05-27-2022 Basophils/100 WBC (Bld) 0.6 % . F [facility] Blood hemoglobin measurement (mass/volume)Ordered By: Jasmin Velázquez on 05-27-2022 Hemoglobin (Bld) [Mass/Vol] 13.1 g/dL 11.8-15.4 [facility] Blood leukocytes automated c ount (number/volume)Ordered By: Jasmin Velázquez on 05-27-2022 WBC (Bld) [#/Vol] 13.2 10*3/uL 4.5-11.0 [facility] CT biopsyOrdered By: Jasmin noel on 05-27-2022 Transferrin [Mass/Vol] 307 mg/dL 180-380 Fi [facility] Eosinophils Auto (Bld) [#/Vo l]Ordered By: Jasmin Velázquez on 05-27-2022 Eosinophils (Bld) [#/Vol] 0.1 10*3/uL 0.0-0.45 [facility] Eosinophils/100 WBC Auto (Bl d)Ordered By: Jasmin Velázquez on 05-27-2022 Eosinophils/100 WBC (Bld) 1.0 % . [facility] Erythrocyte distribution wid th Auto (RBC) [Ratio]Ordered By: Jasmin Velázquez on 05-27-2022 Erythrocyte distribution width (RBC) [Ratio] 13.5 % 11.9-15.3 [facility] Ferritin [Mass/volume] in Se rum or PlasmaOrdered By: Jasmin Velázquez on 05-27-2022 Ferritin [Mass/Vol] 49.6 ng/mL 11-306.8 [facility] Hematocrit Auto (Bld) [Volum e fraction]Ordered By: Jasmin Velázquez on 05-27-2022 Hematocrit (Bld) [Volume fraction] 40.1 % 34.0-46.4 [facility] Iron [Mass/volume] in Serum or PlasmaOrdered By: Jasmin Velázquez on 05-27-2022 Iron [Mass/Vol] 50 ug/dL 40-150 [facility] Iron binding capacity [Mass/ volume] in Serum or PlasmaOrdered By: Jasmin Velázquez on 05-27-2022 Iron binding capacity [Mass/Vol] 430 ug/dL 255-450 [facility] Iron saturation [Mass Fracti on] in Serum or PlasmaOrdered By: Jasmin Velázquez on 05-27-2022 Iron saturation [Mass fraction] 11.0 % 20-50 [facility] Laboratory - Hematology and Cell countsOrdered By: Jasmin Velázquez on 05-27-2022 Nucleated RBC/100 WBC (Bld) [Ratio] 0.1 % 0-0.5 [facility] Lymphocytes Auto (Bld) [#/Vo l]Ordered By: Jasmin Velázquez on 05-27-2022 Lymphocytes (Bld) [#/Vol] 3.3 10*3/uL 1.00-4.8 [facility] Lymphocytes/100 WBC Auto (Bl d)Ordered By: Jasmin Velázquez on 05-27-2022 Lymphocytes/100 WBC (Bld) 24.8 % . [facility] MCH Auto (RBC) [Entitic mass ]Ordered By: Jasmin Velázquez on 05-27-2022 MCH (RBC) [Entitic mass] 30.0 pg 24.7-34.3 [facility] MCHC Auto (RBC) [Mass/Vol]Or dered By: Jasmin Velázquez on 05-27-2022 MCHC (RBC) [Mass/Vol] 32.7 g/dL 32.0-35.0 [facility] MCV Auto (RBC) [Entitic vol] Ordered By: Jasmin Velázquez on 05-27-2022 MCV (RBC) [Entitic vol] 91.5 fL 80-[address] [facility] Monocytes Auto (Bld) [#/Vol] Ordered By: Jasmin Velázquez on 05-27-2022 Monocytes (Bld) [#/Vol] 1.0 10*3/uL 0.0-0.8 [facility] Monocytes/100 WBC Auto (Bld) Ordered By: Jasmin Velázquez on 05-27-2022 Monocytes/100 WBC (Bld) 7.6 % . F [facility] Neutrophils Auto (Bld) [#/Vo l]Ordered By: Jasmin Velázquez on 05-27-2022 Neutrophils (Bld) [#/Vol] 8.7 10*3/uL 1.8-7.7 [facility] Neutrophils/100 WBC Auto (Bl d)Ordered By: Jasmin Velázquez on 05-27-2022 Neutrophils/100 WBC (Bld) 66.0 % . [facility] No Panel InformationOrdered By: Jasmin Velázquez on 05-27-2022 BCR/abl See comment [facility] Comment on above: See report. Scanned copy available in EMR. Platelet mean volume Auto (B ld) [Entitic vol]Ordered By: Jasmin Velázquez on 05-27-2022 Platelet mean volume (Bld) [Entitic vol] 8.8 fL 6.3-10.7 [facility] Platelets Auto (Bld) [#/Vol] Ordered By: Jasmin Velázquez on 05-27-2022 Platelets (Bld) [#/Vol] 284 10*3/uL 150-450 [facility] RBC Auto (Bld) [#/Vol]Ordere d By: Jasmin Velázquez on 05-27-2022 RBC (Bld) [#/Vol] 4.38 10*6/uL 3.60-5.00 [facility] Basophils Auto (Bld) [#/Vol] Ordered By: Ajit Pettit on 05-07-2022 Basophils (Bld) [#/Vol] 0.1 10*3/uL 0.0-0.2 [facility] Basophils/100 WBC Auto (Bld) Ordered By: Ajit Pettit on 05-07-2022 Basophils/100 WBC (Bld) 0.6 % . F [facility] Blood hemoglobin measurement (mass/volume)Ordered By: Ajit Pettit on 05-07-2022 Hemoglobin (Bld) [Mass/Vol] 13.4 g/dL 11.8-15.4 [facility] Blood leukocytes automated c ount (number/volume)Ordered By: Ajit Pettit on 05-07-2022 WBC (Bld) [#/Vol] 16.2 10*3/uL 4.5-11.0 [facility] Eosinophils Auto (Bld) [#/Vo l]Ordered By: Ajit Pettit on 05-07-2022 Eosinophils (Bld) [#/Vol] 0.1 10*3/uL 0.0-0.45 [facility] Eosinophils/100 WBC Auto (Bl d)Ordered By: Ajit Pettit on 05-07-2022 Eosinophils/100 WBC (Bld) 0.9 % . [facility] Erythrocyte distribution wid th Auto (RBC) [Ratio]Ordered By: Ajit Pettit on 05-07-2022 Erythrocyte distribution width (RBC) [Ratio] 13.6 % 11.9-15.3 [facility] Hematocrit Auto (Bld) [Volum e fraction]Ordered By: Ajit Pettit on 05-07-2022 Hematocrit (Bld) [Volume fraction] 40.5 % 34.0-46.4 [facility] Laboratory - Hematology and Cell countsOrdered By: Ajit Pettit on 05-07-2022 Nucleated RBC/100 WBC (Bld) [Ratio] 0.0 % 0-0.5 [facility] Lymphocytes Auto (Bld) [#/Vo l]Ordered By: Ajit Millanc on 05-07-2022 Lymphocytes (Bld) [#/Vol] 4.7 10*3/uL 1.00-4.8 [facility] Lymphocytes/100 WBC Auto (Bl d)Ordered By: Ajit Pettit on 05-07-2022 Lymphocytes/100 WBC (Bld) 28.9 % . [facility] MCH Auto (RBC) [Entitic mass ]Ordered By: Ajit Pettit on 05-07-2022 MCH (RBC) [Entitic mass] 30.7 pg 24.7-34.3 [facility] MCHC Auto (RBC) [Mass/Vol]Or dered By: Ajit Lariossic on 05-07-2022 MCHC (RBC) [Mass/Vol] 33.2 g/dL 32.0-35.0 [facility] MCV Auto (RBC) [Entitic vol] Ordered By: Ajit Millanc on 05-07-2022 MCV (RBC) [Entitic vol] 92.5 fL 80-[address] [facility] Monocytes Auto (Bld) [#/Vol] Ordered By: Ajit Millanc on 05-07-2022 Monocytes (Bld) [#/Vol] 1.1 10*3/uL 0.0-0.8 [facility] Monocytes/100 WBC Auto (Bld) Ordered By: Ajit Millanc on 05-07-2022 Monocytes/100 WBC (Bld) 6.8 % . F [facility] Neutrophils Auto (Bld) [#/Vo l]Ordered By: Ajit Lariossic on 05-07-2022 Neutrophils (Bld) [#/Vol] 10.2 10*3/uL 1.8-7.7 [facility] Neutrophils/100 WBC Auto (Bl d)Ordered By: Ajit Lariossic on 05-07-2022 Neutrophils/100 WBC (Bld) 62.8 % . [facility] No Panel InformationOrdered By: Ajit Pettit on 05-07-2022 Platelet Estimate Normal Normal [facility] Platelet Morphology Comment Normal Normal [facility] Platelet mean volume Auto (B ld) [Entitic vol]Ordered By: Ajit Pettit on 05-07-2022 Platelet mean volume (Bld) [Entitic vol] 8.0 fL 6.3-10.7 [facility] Platelets Auto (Bld) [#/Vol] Ordered By: Ajit Pettit on 05-07-2022 Platelets (Bld) [#/Vol] 369 10*3/uL 150-450 [facility] RBC Auto (Bld) [#/Vol]Ordere d By: Ajit Pettit on 05-07-2022 RBC (Bld) [#/Vol] 4.38 10*6/uL 3.60-5.00 [facility] RBC morphologyOrdered By: Cole Pettit on 05-07-2022 RBC morphology finding Nom (Bld) Normal [facility] Bacterial blood cultureOrder ed By: Rod Alvarado on 05-06-2022 Bacteria identified Cx Nom (Bld) NO GROWTH 5 DAYS [facility] Bacteria identified Cx Nom (Bld) NO GROWTH 5 DAYS [facility] Bacterial blood cultureOrder ed By: Ajit Pettit on 05-06-2022 Bacteria identified Cx Nom (Bld) NO GROWTH 5 DAYS [facility] Urine culture routineOrdered By: Ajit Pettit on 05-02-2022 Bacteria identified Cx Nom (U) 2 Days [facility] Activated partial thrombopla stin time (aPTT) in platelet poor plasma by coagulation aOrdered By: Rod Alvarado on 05-01-2022 aPTT Coag (PPP) [Time] 29.2 s 25.1-36.5 [facility] Automated epithelial cells c ount in urine sediment (number/area)Ordered By: Rod Alvarado on 05-01-2022 Epithelial cells Auto (Urine sed) [#/Area] 5-9 [HPF] 0-2 [facility] Automated erythrocytes count in urine sediment (number/area)Ordered By: Rod Alvarado on 05-01-2022 RBC Auto (Urine sed) [#/Area] 1-2 [HPF] 0-4 [facility] Automated leukocytes count i n urine sediment (number/area)Ordered By: Rod Alvarado on 05-01-2022 WBC Auto (Urine sed) [#/Area] 1-2 [HPF] 0-4 [facility] Basophils Auto (Bld) [#/Vol] Ordered By: Rod Alvarado on 05-01-2022 Basophils (Bld) [#/Vol] 0.2 10*3/uL 0.0-0.2 [facility] Basophils Auto (Bld) [#/Vol] Ordered By: Ajit Pettit on 05-01-2022 Basophils (Bld) [#/Vol] 0.1 10*3/uL 0.0-0.2 [facility] Basophils/100 WBC Auto (Bld) Ordered By: Rod Alvarado on 05-01-2022 Basophils/100 WBC (Bld) 1.0 % . F [facility] Basophils/100 WBC Auto (Bld) Ordered By: Ajit Pettit on 05-01-2022 Basophils/100 WBC (Bld) 0.7 % . F [facility] Bilirubin Auto test strip Ql (U)Ordered By: Rod Alvarado on 05-01-2022 Bilirubin Ql (U) 1+ Negative [facility] Blood hemoglobin measurement (mass/volume)Ordered By: Rod Alvarado on 05-01-2022 Hemoglobin (Bld) [Mass/Vol] 13.1 g/dL 11.8-15.4 [facility] Blood hemoglobin measurement (mass/volume)Ordered By: Ajit Pettit on 05-01-2022 Hemoglobin (Bld) [Mass/Vol] 12.9 g/dL 11.8-15.4 [facility] Blood leukocytes automated c ount (number/volume)Ordered By: Rod Alvarado on 05-01-2022 WBC (Bld) [#/Vol] 15.9 10*3/uL 4.5-11.0 [facility] Blood leukocytes automated c ount (number/volume)Ordered By: Ajit Pettit on 05-01-2022 WBC (Bld) [#/Vol] 14.7 10*3/uL 4.5-11.0 [facility] Body fluid albumin measureme nt (mass/volume)Ordered By: Ajit Pettit on 05-01-2022 Albumin (Body fld) [Mass/Vol] 3.6 g/dL 3.2-5.5 [facility] Creatinine and Glomerular fi ltration rate.predicted panel (S/P/Bld)Ordered By: Rod Alvarado on 05-01-2022 Creatinine [Mass/Vol] 0.58 mg/dL 0.44-1.03 [facility] Creatinine and Glomerular fi ltration rate.predicted panel (S/P/Bld)Ordered By: Ajit Pettit on 05-01-2022 Creatinine [Mass/Vol] 0.58 mg/dL 0.44-1.03 [facility] Eosinophils Auto (Bld) [#/Vo l]Ordered By: Rod Alvarado on 05-01-2022 Eosinophils (Bld) [#/Vol] 0.2 10*3/uL 0.0-0.45 [facility] Eosinophils Auto (Bld) [#/Vo l]Ordered By: Ajit Pettit on 05-01-2022 Eosinophils (Bld) [#/Vol] 0.1 10*3/uL 0.0-0.45 [facility] Eosinophils/100 WBC Auto (Bl d)Ordered By: Rod Alvarado on 05-01-2022 Eosinophils/100 WBC (Bld) 1.0 % . [facility] Eosinophils/100 WBC Auto (Bl d)Ordered By: Ajit Pettit on 05-01-2022 Eosinophils/100 WBC (Bld) 0.9 % . [facility] Erythrocyte distribution wid th Auto (RBC) [Ratio]Ordered By: Rod Alvarado on 05-01-2022 Erythrocyte distribution width (RBC) [Ratio] 13.6 % 11.9-15.3 [facility] Erythrocyte distribution wid th Auto (RBC) [Ratio]Ordered By: Ajit Pettit on 05-01-2022 Erythrocyte distribution width (RBC) [Ratio] 13.6 % 11.9-15.3 [facility] Estimated glomerular filtrat ion rate (GFR) non- AmericanOrdered By: Rod Alvarado on 05-01-2022 GFR/1.73 sq M.predicted among non-blacks MDRD (S/P/Bld) [Vol rate/Area] > 60 mL/Min [facility] Estimated glomerular filtrat ion rate (GFR) non- AmericanOrdered By: Ajit Pettit on 05-01-2022 GFR/1.73 sq M.predicted among non-blacks MDRD (S/P/Bld) [Vol rate/Area] > 60 mL/Min [facility] Globulin Calc (S) [Mass/Vol] Ordered By: Ajit Pettit on 05-01-2022 Globulin (S) [Mass/Vol] 2.6 g/dL F [facility] Hematocrit Auto (Bld) [Volum e fraction]Ordered By: Rod Alvarado on 05-01-2022 Hematocrit (Bld) [Volume fraction] 39.0 % 34.0-46.4 [facility] Hematocrit Auto (Bld) [Volum e fraction]Ordered By: Ajit Pettit on 05-01-2022 Hematocrit (Bld) [Volume fraction] 39.0 % 34.0-46.4 [facility] Ketones Auto test strip (U) [Mass/Vol]Ordered By: Rod Alvarado on 05-01-2022 Ketones (U) [Mass/Vol] Trace Negative Fi [facility] Laboratory - Chemistry and C hemistry - challengeOrdered By: Rod Alvarado on 05-01-2022 Lipase [Catalytic activity/Vol] 37.0 U/L 22-51 [facility] Laboratory - CoagulationOrde red By: Rod Alvarado on 05-01-2022 PT Coag (PPP) [Time] 9.6 s 9.0-12.9 [facility] Laboratory - Hematology and Cell countsOrdered By: Rod Alvarado on 05-01-2022 Nucleated RBC/100 WBC (Bld) [Ratio] 0.0 % 0-0.5 [facility] Laboratory - Hematology and Cell countsOrdered By: Ajit Pettit on 05-01-2022 Nucleated RBC/100 WBC (Bld) [Ratio] 0.0 % 0-0.5 [facility] Lymphocytes Auto (Bld) [#/Vo l]Ordered By: Rod Alvarado on 05-01-2022 Lymphocytes (Bld) [#/Vol] 4.3 10*3/uL 1.00-4.8 [facility] Lymphocytes Auto (Bld) [#/Vo l]Ordered By: Ajit Pettit on 05-01-2022 Lymphocytes (Bld) [#/Vol] 3.6 10*3/uL 1.00-4.8 [facility] Lymphocytes/100 WBC Auto (Bl d)Ordered By: Rod Alvarado on 05-01-2022 Lymphocytes/100 WBC (Bld) 26.9 % . [facility] Lymphocytes/100 WBC Auto (Bl d)Ordered By: Ajit Pettit on 05-01-2022 Lymphocytes/100 WBC (Bld) 24.8 % . [facility] MCH Auto (RBC) [Entitic mass ]Ordered By: Rod Alvarado on 05-01-2022 MCH (RBC) [Entitic mass] 30.5 pg 24.7-34.3 [facility] MCH Auto (RBC) [Entitic mass ]Ordered By: Ajit Pettit on 05-01-2022 MCH (RBC) [Entitic mass] 30.5 pg 24.7-34.3 [facility] MCHC Auto (RBC) [Mass/Vol]Or dered By: Rod Alvarado on 05-01-2022 MCHC (RBC) [Mass/Vol] 33.5 g/dL 32.0-35.0 [facility] MCHC Auto (RBC) [Mass/Vol]Or dered By: Ajit Pettit on 05-01-2022 MCHC (RBC) [Mass/Vol] 32.9 g/dL 32.0-35.0 [facility] MCV Auto (RBC) [Entitic vol] Ordered By: Rod Alvarado on 05-01-2022 MCV (RBC) [Entitic vol] 91.0 fL 80-[address] [facility] MCV Auto (RBC) [Entitic vol] Ordered By: Ajit Pettit on 05-01-2022 MCV (RBC) [Entitic vol] 92.6 fL 80-[address] [facility] Monocytes Auto (Bld) [#/Vol] Ordered By: Rod Alvarado on 05-01-2022 Monocytes (Bld) [#/Vol] 1.1 10*3/uL 0.0-0.8 [facility] Monocytes Auto (Bld) [#/Vol] Ordered By: Ajit Millanc on 05-01-2022 Monocytes (Bld) [#/Vol] 1.1 10*3/uL 0.0-0.8 [facility] Monocytes/100 WBC Auto (Bld) Ordered By: Rod Alvarado on 05-01-2022 Monocytes/100 WBC (Bld) 6.7 % . F [facility] Monocytes/100 WBC Auto (Bld) Ordered By: Ajit Pettit on 05-01-2022 Monocytes/100 WBC (Bld) 7.2 % . F [facility] Neutrophils Auto (Bld) [#/Vo l]Ordered By: Rod Alvarado on 05-01-2022 Neutrophils (Bld) [#/Vol] 10.3 10*3/uL 1.8-7.7 [facility] Neutrophils Auto (Bld) [#/Vo l]Ordered By: Ajit Pettit on 05-01-2022 Neutrophils (Bld) [#/Vol] 9.8 10*3/uL 1.8-7.7 [facility] Neutrophils/100 WBC Auto (Bl d)Ordered By: Rod Alvarado on 05-01-2022 Neutrophils/100 WBC (Bld) 64.4 % . [facility] Neutrophils/100 WBC Auto (Bl d)Ordered By: Ajit Pettit on 05-01-2022 Neutrophils/100 WBC (Bld) 66.4 % . [facility] No Panel InformationOrdered By: Rod Alvarado on 05-01-2022 Estimated GFR () > 60 mL/Min [facility] Comment on above: GFR estimated refere nce range: According to KDOQI guidelines, <60 ml/min/1.73m2 is sufficient to diagnose a patient with chronic kidney disease. Pharmacy Creatinine Clearance (Chem 128.97 [facility] No Panel InformationOrdered By: Ajit Pettit on 05-01-2022 Estimated GFR () > 60 mL/Min [facility] Comment on above: GFR estimated refere nce range: According to KDOQI guidelines, <60 ml/min/1.73m2 is sufficient to diagnose a patient with chronic kidney disease. Pharmacy Creatinine Clearance (Chem N/A [facility] Platelet mean volume Auto (B ld) [Entitic vol]Ordered By: Rod Alvarado on 05-01-2022 Platelet mean volume (Bld) [Entitic vol] 7.6 fL 6.3-10.7 [facility] Platelet mean volume Auto (B ld) [Entitic vol]Ordered By: Ajit Pettit on 05-01-2022 Platelet mean volume (Bld) [Entitic vol] 8.1 fL 6.3-10.7 [facility] Platelet poor plasma interna tional normalized ratio (INR) by coagulation assay (relatOrdered By: Rod Alvarado on 05-01-2022 INR Coag (PPP) [Relative time] 0.9 {INR} [facility] Comment on above: INR Therapeutic Rang e A) Pre- and Peroperative OAT started two weeks before surgery. NOT HIP SURGERY: 1.5 - 2.5 HIP SURGERY: 2 - 3 B) Primary and secondary prevention of venous THROMBOSIS: 2 - 3 C) Active venous thrombosis, pulmonary embolism and prevention of recurrent venous thrombosis: 2 - 3 D) Prevention of arterial thromboembolism including patients with mechanical heart valves: 3 - 4.5 INR Therapeutic Rang e A) Pre- and Peroperative OAT started two weeks before surgery. NOT HIP SURGERY: 1.5 - 2.5 HIP SURGERY: 2 - 3B) Primary and secondary prevention of venous THROMBOSIS: 2 - 3C) Active venous thrombosis, pulmonary embolismand prevention of recurrent venous thrombosis: 2 - 3D) Prevention of arterial thromboembolismincluding patients with mechanical heart valves: 3 - 4.5 Platelets Auto (Bld) [#/Vol] Ordered By: Rod Alvarado on 05-01-2022 Platelets (Bld) [#/Vol] 310 10*3/uL 150-450 [facility] Platelets Auto (Bld) [#/Vol] Ordered By: Ajit Pettit on 05-01-2022 Platelets (Bld) [#/Vol] 284 10*3/uL 150-450 [facility] Protein Auto test strip (U) [Mass/Vol]Ordered By: Rod Alvarado on 05-01-2022 Protein (U) [Mass/Vol] Negative Negative [facility] Protein [Mass/volume] in Ser um or PlasmaOrdered By: Ajit Pettit on 05-01-2022 Protein [Mass/Vol] 6.2 g/dL 6.1-7.9 [facility] RBC Auto (Bld) [#/Vol]Ordere d By: Rod Alvarado on 05-01-2022 RBC (Bld) [#/Vol] 4.29 10*6/uL 3.60-5.00 [facility] RBC Auto (Bld) [#/Vol]Ordere d By: Ajit Pettit on 05-01-2022 RBC (Bld) [#/Vol] 4.22 10*6/uL 3.60-5.00 [facility] Serum or plasma alanine george otransferase measurement without P-5'-P (enzymatic activiOrdered By: Ajit Pettit on 05-01-2022 ALT No additional P-5'-P [Catalytic activity/Vol] 17 U/L 10-60 [facility] Serum or plasma albumin/glob ulin mass ratioOrdered By: Ajit Pettit on 05-01-2022 Albumin/Globulin [Mass ratio] 1.4 {ratio} [facility] Serum or plasma alkaline lalo sphatase measurement (enzymatic activity/volume)Ordered By: Ajit Pettit on 05-01-2022 ALP [Catalytic activity/Vol] 52 U/L 32-92 [facility] Serum or plasma aspartate am inotransferase measurement (enzymatic activity/volume)Ordered By: Ajit Pettit on 05-01-2022 AST [Catalytic activity/Vol] 19 U/L 10-42 [facility] Serum or plasma calcium ashwini urement (mass/volume)Ordered By: Rod Alvarado on 05-01-2022 Calcium [Mass/Vol] 9.0 mg/dL 8.2-10.2 [facility] Serum or plasma calcium ashwini urement (mass/volume)Ordered By: Ajit Pettit on 05-01-2022 Calcium [Mass/Vol] 9.2 mg/dL 8.2-10.2 [facility] Serum or plasma chloride jett surement (moles/volume)Ordered By: Rod Alvarado on 05-01-2022 Chloride [Moles/Vol] 101 mmol/L 95-114 [facility] Serum or plasma chloride jett surement (moles/volume)Ordered By: Ajit Ptetit on 05-01-2022 Chloride [Moles/Vol] 100 mmol/L 95-114 [facility] Serum or plasma glucose ashwini urement (mass/volume)Ordered By: Rdo Alvarado on 05-01-2022 Glucose [Mass/Vol] 110 mg/dL 70-100 [facility] Comment on above: ADA recommended refe rence range Random Glucose Reference Range is dependent on time and content of last meal. Glucose of more than 200 mg/dL in a nonstressed, ambulatory subject supports the diagnosis of Diabetes Mellitus. ADA recommended refe rence rangeRandom Glucose Reference Range is dependent on time and content of last meal. Glucose of more than 200 mg/dL in a nonstressed, ambulatory subject supports the diagnosis of Diabetes Mellitus. Serum or plasma glucose ashwini urement (mass/volume)Ordered By: Ajit Pettit on 05-01-2022 Glucose [Mass/Vol] 117 mg/dL 70-100 [facility] Comment on above: ADA recommended refe rence range Random Glucose Reference Range is dependent on time and content of last meal. Glucose of more than 200 mg/dL in a nonstressed, ambulatory subject supports the diagnosis of Diabetes Mellitus. ADA recommended refe rence rangeRandom Glucose Reference Range is dependent on time and content of last meal. Glucose of more than 200 mg/dL in a nonstressed, ambulatory subject supports the diagnosis of Diabetes Mellitus. Serum or plasma potassium me asurement (moles/volume)Ordered By: Rod Alvarado on 05-01-2022 Potassium [Moles/Vol] 4.4 mmol/L 3.5-5.1 [facility] Serum or plasma potassium me asurement (moles/volume)Ordered By: Ajit Pettit on 05-01-2022 Potassium [Moles/Vol] 4.4 mmol/L 3.5-5.1 [facility] Serum or plasma sodium measu rement (moles/volume)Ordered By: Rod Alvarado on 05-01-2022 Sodium [Moles/Vol] 135 mmol/L 136-146 [facility] Serum or plasma sodium measu rement (moles/volume)Ordered By: Ajit Pettit on 05-01-2022 Sodium [Moles/Vol] 133 mmol/L 136-146 [facility] Serum or plasma total biliru bin measurement (mass/volume)Ordered By: Rod Alvarado on 05-01-2022 Bilirubin [Mass/Vol] 0.7 mg/dL 0.3-1.2 [facility] Serum or plasma total biliru bin measurement (mass/volume)Ordered By: Ajit Pettit on 05-01-2022 Bilirubin [Mass/Vol] 0.4 mg/dL 0.3-1.2 [facility] Serum or plasma total carbon dioxide measurement (moles/volume)Ordered By: Rod Alvarado on 05-01-2022 CO2 [Moles/Vol] 25.9 mmol/L 22.0-30.0 [facility] Serum or plasma total carbon dioxide measurement (moles/volume)Ordered By: Ajit Pettit on 05-01-2022 CO2 [Moles/Vol] 23.1 mmol/L 22.0-30.0 [facility] Serum or plasma urea nitroge n measurement (mass/volume)Ordered By: Rod Alvarado on 05-01-2022 Urea nitrogen [Mass/Vol] 11 mg/dL 06-26 [facility] Serum or plasma urea nitroge n measurement (mass/volume)Ordered By: Ajit Pettit on 05-01-2022 Urea nitrogen [Mass/Vol] 14 mg/dL 06-26 [facility] Urine appearanceOrdered By: Rod Alvarado on 05-01-2022 Appearance (U) Clear Clear [facility] Urine bacteria detection by automated methodOrdered By: Rod Alvarado on 05-01-2022 Bacteria Auto Ql (U) 1+ None Seen [facility] Urine colorOrdered By: Shady Alvarado on 05-01-2022 Color (U) Yellow Yellow [facility] Urine glucose measurement by automated test strip (mass/volume)Ordered By: Rod Alvarado on 05-01-2022 Glucose Auto test strip (U) [Mass/Vol] Normal mg/dL Normal [facility] Urine hemoglobin detection b y automated test stripOrdered By: Rod Alvarado on 05-01-2022 Hemoglobin Auto test strip Ql (U) Negative Negative [facility] Urine lactic acid measuremen tOrdered By: Rod Alvarado on 05-01-2022 Lactate (U) [Moles/Vol] 1.7 mmol/L 0.5-2.[address] [facility] Urine lactic acid measuremen tOrdered By: Ajit Pettit on 05-01-2022 Lactate (U) [Moles/Vol] 2.5 mmol/L 0.5-2.[address] [facility] Comment on above: Results called at 1022 on 05/01/22 Results calledat 102 2 on 05/01/22 Urine leukocyte esterase det ection by automated test stripOrdered By: Rod Alvarado on 05-01-2022 Leukocyte esterase Auto test strip Ql (U) 2+ Negative [facility] Urine nitrite detection by a utomated test stripOrdered By: Rod Alvarado on 05-01-2022 Nitrite Auto test strip Ql (U) Negative Negative [facility] Urobilinogen Auto test strip (U) [Mass/Vol]Ordered By: Rod Alvarado on 05-01-2022 Urobilinogen (U) [Mass/Vol] Normal mg/dL Normal [facility] pH Auto test strip (U)Ordere d By: Rod Alvarado on 05-01-2022 pH (U) 1.030 [pH] 1.001-1.03 0 [facility] pH (U) 6.0 [pH] 5.0-9.0 [facility] Basophils Auto (Bld) [#/Vol] Ordered By: Ajit Pettit on 04-30-2022 Basophils (Bld) [#/Vol] 0.2 10*3/uL 0.0-0.2 [facility] Basophils/100 WBC Auto (Bld) Ordered By: Ajit Pettit on 04-30-2022 Basophils/100 WBC (Bld) 0.9 % . F [facility] Blood hemoglobin measurement (mass/volume)Ordered By: Ajit Pettit on 04-30-2022 Hemoglobin (Bld) [Mass/Vol] 13.9 g/dL 11.8-15.4 [facility] Blood leukocytes automated c ount (number/volume)Ordered By: Ajit Pettit on 04-30-2022 WBC (Bld) [#/Vol] 19.7 10*3/uL 4.5-11.0 [facility] Body fluid albumin measureme nt (mass/volume)Ordered By: Ajit Pettit on 04-30-2022 Albumin (Body fld) [Mass/Vol] 4.1 g/dL 3.2-5.5 [facility] CT biopsyOrdered By: Ajit corrales on 04-30-2022 Transferrin [Mass/Vol] 352 mg/dL 180-380 [facility] Cholesterol [Mass/volume] in Serum or PlasmaOrdered By: Ajit Pettit on 04-30-2022 Cholesterol [Mass/Vol] 260 mg/dL 140-200 [facility] Comment on above: Chol less than 200 m g/dl low risk Chol 201-239 mg/dl borderline risk Chol 240 mg/dl and greater high risk Chol less than 200 m g/dl low riskChol 201-239 mg/dl borderline riskChol 240 mg/dl and greater high risk Cholesterol in LDL Calc [Mas s/Vol]Ordered By: Ajit Pettit on 04-30-2022 Cholesterol in LDL [Mass/Vol] 134 mg/dL 0-100 [facility] Comment on above: LDL ATP III CLASSIFI CATION LDL less than 100 mg/dL Optimal LDL 100-129 mg/dL Near or above optimal LDL 130-159 mg/dL Borderline high LDL 160-189 mg/dL High LDL greater than 189 mg/dL Very high LDL ATP III CLASSIFI CATIONLDL less than 100 mg/dL OptimalLDL 100-129 mg/dL Near or above optimalLDL 130-159 mg/dL Borderline highLDL 160-189 mg/dL HighLDL greater than 189 mg/dL Very high Cholesterol in VLDL Calc [Ma ss/Vol]Ordered By: Ajit Pettit on 04-30-2022 Cholesterol in VLDL [Mass/Vol] 68 mg/dL [facility] Creatinine and Glomerular fi ltration rate.predicted panel (S/P/Bld)Ordered By: Ajit Pettit on 04-30-2022 Creatinine [Mass/Vol] 0.56 mg/dL 0.44-1.03 [facility] Eosinophils Auto (Bld) [#/Vo l]Ordered By: Ajit Pettit on 04-30-2022 Eosinophils (Bld) [#/Vol] 0.2 10*3/uL 0.0-0.45 [facility] Eosinophils/100 WBC Auto (Bl d)Ordered By: Ajit Pettit on 04-30-2022 Eosinophils/100 WBC (Bld) 1.0 % . [facility] Erythrocyte distribution wid th Auto (RBC) [Ratio]Ordered By: Ajit Pettit on 04-30-2022 Erythrocyte distribution width (RBC) [Ratio] 13.5 % 11.9-15.3 [facility] Estimated glomerular filtrat ion rate (GFR) non- AmericanOrdered By: Ajit Pettit on 04-30-2022 GFR/1.73 sq M.predicted among non-blacks MDRD (S/P/Bld) [Vol rate/Area] > 60 mL/Min [facility] Globulin Calc (S) [Mass/Vol] Ordered By: Ajit Pettit on 04-30-2022 Globulin (S) [Mass/Vol] 2.9 g/dL [facility] Hematocrit Auto (Bld) [Volum e fraction]Ordered By: Ajit Pettit on 04-30-2022 Hematocrit (Bld) [Volume fraction] 42.9 % 34.0-46.4 [facility] Iron [Mass/volume] in Serum or PlasmaOrdered By: Ajit Pettit on 04-30-2022 Iron [Mass/Vol] 51 ug/dL 40-150 [facility] Iron binding capacity [Mass/ volume] in Serum or PlasmaOrdered By: Ajit Pettit on 04-30-2022 Iron binding capacity [Mass/Vol] 493 ug/dL 255-450 [facility] Iron saturation [Mass Fracti on] in Serum or PlasmaOrdered By: Ajit Pettit on 04-30-2022 Iron saturation [Mass fraction] 10.0 % 20-50 [facility] Laboratory - Chemistry and C hemistry - challengeOrdered By: Ajit Pettit on 04-30-2022 Cobalamin (Vitamin B12) [Mass/Vol] 472 pg/mL 180-914 [facility] Laboratory - Hematology and Cell countsOrdered By: Ajit Pettit on 04-30-2022 Nucleated RBC/100 WBC (Bld) [Ratio] 0.2 % 0-0.5 [facility] Lymphocytes Auto (Bld) [#/Vo l]Ordered By: Ajit Pettit on 04-30-2022 Lymphocytes (Bld) [#/Vol] 4.1 10*3/uL 1.00-4.8 [facility] Lymphocytes/100 WBC Auto (Bl d)Ordered By: Ajit Pettit on 04-30-2022 Lymphocytes/100 WBC (Bld) 20.8 % . [facility] MCH Auto (RBC) [Entitic mass ]Ordered By: Ajit Pettit on 04-30-2022 MCH (RBC) [Entitic mass] 30.0 pg 24.7-34.3 [facility] MCHC Auto (RBC) [Mass/Vol]Or dered By: Ajit Pettit on 04-30-2022 MCHC (RBC) [Mass/Vol] 32.4 g/dL 32.0-35.0 [facility] MCV Auto (RBC) [Entitic vol] Ordered By: Ajit Pettit on 04-30-2022 MCV (RBC) [Entitic vol] 92.7 fL 80-[address] [facility] Monocytes Auto (Bld) [#/Vol] Ordered By: Ajit Pettit on 04-30-2022 Monocytes (Bld) [#/Vol] 1.3 10*3/uL 0.0-0.8 [facility] Monocytes/100 WBC Auto (Bld) Ordered By: Ajit Pettit on 04-30-2022 Monocytes/100 WBC (Bld) 6.8 % . F [facility] Neutrophils Auto (Bld) [#/Vo l]Ordered By: Ajit Pettit on 04-30-2022 Neutrophils (Bld) [#/Vol] 13.9 10*3/uL 1.8-7.7 [facility] Neutrophils/100 WBC Auto (Bl d)Ordered By: Ajit Pettit on 04-30-2022 Neutrophils/100 WBC (Bld) 70.5 % . [facility] No Panel InformationOrdered By: Ajit Pettit on 04-30-2022 25-Hydroxy Vitamin D Total 19.9 ng/mL 30-100 [facility] Comment on above: VITAMIN D STATUS 25( [place])VITAMIN D RANGE (ng/mL) Deficient <20 Insufficient 20 to <30 Sufficient 30 to 100 Reference: Dominique Restrepo, Gillian NINA, et al. Evaluation,treatment, and prevention of vitamin D deficiency; an Endocrine Society clinical practice guideline. JCEM. 2010; 96(7):1911-30. VITAMIN D STATUS 25( [place])VITAMIN D RANGE (ng/mL) Deficient <20 Insufficient 20 to <30Sufficient 30 to 100Reference: Dominique Restrepo, Gillian NINA, et al. Evaluation,treatment, and prevention of vitamin D deficiency; an Endocrine Society clinical practice guideline. JCEM. 2010; 96(7):1911-30. Estimated GFR () > 60 mL/Min [facility] Comment on above: GFR estimated refere nce range: According to KDOQI guidelines, <60 ml/min/1.73m2 is sufficient to diagnose a patient with chronic kidney disease. Pharmacy Creatinine Clearance (Chem N/A [facility] Valproic Acid (Depakene) Level 59.8 ug/mL 50.0-100.0 [facility] Comment on above: Last dose: - Platelet mean volume Auto (B ld) [Entitic vol]Ordered By: Ajit Pettit on 04-30-2022 Platelet mean volume (Bld) [Entitic vol] 8.7 fL 6.3-10.7 [facility] Platelets Auto (Bld) [#/Vol] Ordered By: Ajit Pettit on 04-30-2022 Platelets (Bld) [#/Vol] 257 10*3/uL 150-450 [facility] Protein [Mass/volume] in Ser um or PlasmaOrdered By: Ajit Pettit on 04-30-2022 Protein [Mass/Vol] 7.0 g/dL 6.1-7.9 [facility] RBC Auto (Bld) [#/Vol]Ordere d By: Ajit Pettit on 04-30-2022 RBC (Bld) [#/Vol] 4.62 10*6/uL 3.60-5.00 [facility] Serum or plasma alanine george otransferase measurement without P-5'-P (enzymatic activiOrdered By: Ajit Pettit on 04-30-2022 ALT No additional P-5'-P [Catalytic activity/Vol] 20 U/L 10-60 [facility] Serum or plasma albumin/glob ulin mass ratioOrdered By: Ajit Pettit on 04-30-2022 Albumin/Globulin [Mass ratio] 1.4 {ratio} [facility] Serum or plasma alkaline lalo sphatase measurement (enzymatic activity/volume)Ordered By: Ajit Pettit on 04-30-2022 ALP [Catalytic activity/Vol] 54 U/L 32-92 [facility] Serum or plasma aspartate am inotransferase measurement (enzymatic activity/volume)Ordered By: Ajit Pettit on 04-30-2022 AST [Catalytic activity/Vol] 22 U/L 10-42 [facility] Serum or plasma calcium ashwini urement (mass/volume)Ordered By: Ajit Pettit on 04-30-2022 Calcium [Mass/Vol] 9.4 mg/dL 8.2-10.2 [facility] Serum or plasma chloride jtet surement (moles/volume)Ordered By: Ajit Pettit on 04-30-2022 Chloride [Moles/Vol] 102 mmol/L 95-114 [facility] Serum or plasma glucose ashwini urement (mass/volume)Ordered By: Ajit Pettit on 04-30-2022 Glucose [Mass/Vol] 115 mg/dL 70-100 [facility] Comment on above: ADA recommended refe rence range Random Glucose Reference Range is dependent on time and content of last meal. Glucose of more than 200 mg/dL in a nonstressed, ambulatory subject supports the diagnosis of Diabetes Mellitus. ADA recommended refe rence rangeRandom Glucose Reference Range is dependent on time and content of last meal. Glucose of more than 200 mg/dL in a nonstressed, ambulatory subject supports the diagnosis of Diabetes Mellitus. Serum or plasma high density lipoprotein (HDL) cholesterol measurementOrdered By: Ajit Pettit on 04-30-2022 Cholesterol in HDL [Mass/Vol] 57 mg/dL 35-85 [facility] Comment on above: HDL CHOL ATP-III CLA SSIFICATION Cardiovascular Risk HDL > or equal to 60 mg/dL LOW HDL < 40 mg/dL HIGH HDL CHOL ATP-III CLA SSIFICATION Cardiovascular RiskHDL > or equal to 60 mg/dL LOWHDL < 40 mg/dL HIGH Serum or plasma potassium me asurement (moles/volume)Ordered By: Ajit Pettit on 04-30-2022 Potassium [Moles/Vol] 4.8 mmol/L 3.5-5.1 [facility] Serum or plasma sodium measu rement (moles/volume)Ordered By: Ajit Pettit on 04-30-2022 Sodium [Moles/Vol] 135 mmol/L 136-146 [facility] Serum or plasma total biliru bin measurement (mass/volume)Ordered By: Ajit Pettit on 04-30-2022 Bilirubin [Mass/Vol] 0.2 mg/dL 0.3-1.2 [facility] Serum or plasma total carbon dioxide measurement (moles/volume)Ordered By: Ajit Pettit on 04-30-2022 CO2 [Moles/Vol] 24.2 mmol/L 22.0-30.0 [facility] Serum or plasma total choles terol/high density lipoprotein (HDL) cholesterol mass ratOrdered By: Ajit Pettit on 04-30-2022 Cholesterol.total/Suellen sterol in HDL [Mass ratio] 4.6 {ratio} <5.0 [facility] Serum or plasma urea nitroge n measurement (mass/volume)Ordered By: Ajit Pettit on 04-30-2022 Urea nitrogen [Mass/Vol] 12 mg/dL 9-23 [facility] TSH DL <= 0.005 mIU/L QnOrde red By: Ajit Pettit on 04-30-2022 TSH Qn 2.89 m[IU]/L 0.45-5.33 [facility] Triglyceride [Mass/volume] i n Serum or PlasmaOrdered By: Ajit Pettit on 04-30-2022 Triglyceride [Mass/Vol] 344 mg/dL 35-[address] [facility] Comment on above: TRIG ATP III CLASSIF ICATION TRIG less than 150 mg/dL Normal TRIG 150-199 mg/dL Borderline high TRIG 200-500 mg/dL High TRIG greater than 500 mg/dL Very high Standard traceable to the Center for Disease Conrtrol and Prevention (CDC) test method. TRIG ATP III CLASSIF ICATIONTRIG less than 150 mg/dL NormalTRIG 150-199 mg/dL Borderline highTRIG 200-500 mg/dL High TRIG greater than 500 mg/dL Very highStandard traceable to the Center for Disease Conrtrol and Prevention (CDC) test method. Basophils Auto (Bld) [#/Vol] on 01-21-2021 Basophils (Bld) [#/Vol] 0.1 10*3/uL 0.0-0.2 [facility] Basophils/100 WBC Auto (Bld) on 01-21-2021 Basophils/100 WBC (Bld) 1.0 % F [facility] Blood hemoglobin measurement (mass/volume)on 01-21-2021 Hemoglobin (Bld) [Mass/Vol] 13.0 g/dL 11.8-15.4 [facility] Blood leukocytes automated c ount (number/volume)on 01-21-2021 WBC (Bld) [#/Vol] 13.2 10*3/uL 4.5-11.[address] [facility] Body fluid albumin measureme nt (mass/volume)on 01-21-2021 Albumin (Body fld) [Mass/Vol] 3.7 g/dL 3.2-5.5 [facility] Creatinine and Glomerular fi ltration rate.predicted panel (S/P/Bld)on 01-21-2021 Creatinine [Mass/Vol] 0.67 mg/dL 0.44-1.03 [facility] Eosinophils Auto (Bld) [#/Vo l]on 01-21-2021 Eosinophils (Bld) [#/Vol] 0.1 10*3/uL 0.0-0.45 [facility] Eosinophils/100 WBC Auto (Bl d)on 01-21-2021 Eosinophils/100 WBC (Bld) 0.8 % [facility] Erythrocyte distribution wid th Auto (RBC) [Ratio]on 01-21-2021 Erythrocyte distribution width (RBC) [Ratio] 13.1 % 11.9-15.3 [facility] Estimated glomerular filtrat ion rate (GFR) non- Americanon 01-21-2021 GFR/1.73 sq M.predicted among non-blacks MDRD (S/P/Bld) [Vol rate/Area] > 60 mL/Min [facility] Globulin Calc (S) [Mass/Vol] on 01-21-2021 Globulin (S) [Mass/Vol] 2.7 g/dL F [facility] Hematocrit Auto (Bld) [Volum e fraction]on 01-21-2021 Hematocrit (Bld) [Volume fraction] 38.1 % 34.0-46.4 [facility] Laboratory - Chemistry and C hemistry - challengeon 01-21-2021 Cobalamin (Vitamin B12) [Mass/Vol] 341 pg/mL 180-914 [facility] - Hematology and Cell countson 01-21-2021 Nucleated RBC/100 WBC (Bld) [Ratio] 0.2 % 0-0.5 [facility] Lymphocytes Auto (Bld) [#/Vo l]on 01-21-2021 Lymphocytes (Bld) [#/Vol] 3.9 10*3/uL 1.00-4.8 [facility] Lymphocytes/100 WBC Auto (Bl d)on 01-21-2021 Lymphocytes/100 WBC (Bld) 29.4 % [facility] MCH Auto (RBC) [Entitic mass ]on 01-21-2021 MCH (RBC) [Entitic mass] 30.6 pg 24.7-34.3 [facility] MCHC Auto (RBC) [Mass/Vol]on 01-21-2021 MCHC (RBC) [Mass/Vol] 34.1 g/dL 32.0-35.0 [facility] MCV Auto (RBC) [Entitic vol] on 01-21-2021 MCV (RBC) [Entitic vol] 89.6 fL 80-100 [facility] Monocytes Auto (Bld) [#/Vol] on 01-21-2021 Monocytes (Bld) [#/Vol] 1.1 10*3/uL 0.0-0.8 [facility] Monocytes/100 WBC Auto (Bld) on 01-21-2021 Monocytes/100 WBC (Bld) 8.6 % F [facility] Neutrophils Auto (Bld) [#/Vo l]on 01-21-2021 Neutrophils (Bld) [#/Vol] 8.0 10*3/uL 1.8-7.7 [facility] Neutrophils/100 WBC Auto (Bl d)on 01-21-2021 Neutrophils/100 WBC (Bld) 60.2 % [facility] No Panel Informationon 01-21 25-Hydroxy Vitamin D Total 25.5 ng/mL 30-100 [facility] Comment on above: VITAMIN D STATUS 25( [place])VITAMIN D RANGE (ng/mL) Deficient <20 Insufficient 20 to <30Sufficient 30 to 100Reference: Jovanni MF,Dominique NC, Gillian NINA, et al. Evaluation,treatment, and prevention of vitamin D deficiency; an Endocrine Society clinical practice guideline. JCEM. 2010; 96(7):1911-30. Estimated GFR () > 60 mL/Min [facility] Comment on above: GFR estimated refere nce range: According to KDOQI guidelines, <60 ml/min/1.73m2 is sufficient to diagnose a patient with chronic kidney disease. Pharmacy Creatinine Clearance (Chem N/A [facility] Valproic Acid (Depakene) Level 74.3 ug/mL 50.0-100.0 [facility] Comment on above: Last dose: - Platelet mean volume Auto (B ld) [Entitic vol]on 01-21-2021 Platelet mean volume (Bld) [Entitic vol] 9.1 fL 6.3-10.7 [facility] Platelets Auto (Bld) [#/Vol] on 01-21-2021 Platelets (Bld) [#/Vol] 261 10*3/uL 150-450 [facility] Protein [Mass/volume] in Ser um or Plasmaon 01-21-2021 Protein [Mass/Vol] 6.4 g/dL 6.1-7.9 [facility] RBC Auto (Bld) [#/Vol]on RBC (Bld) [#/Vol] 4.25 10*6/uL 3.60-5.[address] [facility] Serum or plasma alanine george otransferase measurement without P-5'-P (enzymatic activion 01-21-2021 ALT No additional P-5'-P [Catalytic activity/Vol] 14 U/L 10-60 [facility] Serum or plasma albumin/glob ulin mass ratioon 01-21-2021 Albumin/Globulin [Mass ratio] 1.4 {ratio} [facility] Serum or plasma alkaline lalo sphatase measurement (enzymatic activity/volume)on 01-21-2021 ALP [Catalytic activity/Vol] 50 U/L 32-92 [facility] Serum or plasma aspartate am inotransferase measurement (enzymatic activity/volume)on 01-21-2021 AST [Catalytic activity/Vol] 17 U/L 10-42 [facility] Serum or plasma calcium ashwini urement (mass/volume)on 01-21-2021 Calcium [Mass/Vol] 9.5 mg/dL 8.2-10.2 [facility] Serum or plasma chloride jett surement (moles/volume)on 01-21-2021 Chloride [Moles/Vol] 96 mmol/L 95-114 [facility] Serum or plasma glucose ashwini urement (mass/volume)on 01-21-2021 Glucose [Mass/Vol] 117 mg/dL 70-100 [facility] Comment on above: ADA recommended refe rence rangeRandom Glucose Reference Range is dependent on time and content of last meal. Glucose of more than 200 mg/dL in a nonstressed, ambulatory subject supports the diagnosis of Diabetes Mellitus. Serum or plasma potassium me asurement (moles/volume)on 01-21-2021 Potassium [Moles/Vol] 4.3 mmol/L 3.5-5.1 [facility] Serum or plasma sodium measu rement (moles/volume)on 01-21-2021 Sodium [Moles/Vol] 132 mmol/L 136-146 [facility] Serum or plasma total biliru bin measurement (mass/volume)on 01-21-2021 Bilirubin [Mass/Vol] 0.3 mg/dL 0.3-1.2 [facility] Serum or plasma total carbon dioxide measurement (moles/volume)on 01-21-2021 CO2 [Moles/Vol] 23.6 mmol/L 22.0-30.0 [facility] Serum or plasma urea nitroge n measurement (mass/volume)on 01-21-2021 Urea nitrogen [Mass/Vol] 13 mg/dL 06-26 [facility] Albumin [Mass/volume] in Ser um or Plasmaon 11-05-2020 Albumin [Mass/Vol] 4.4 g/dL 3.2-5.5 [facility] Automated basophil %on 11-05 Basophils/100 WBC (Bld) 0.7 % F [facility] Automated basophil counton 0 11-05-2020 Basophils (Bld) [#/Vol] 0.1 10*3/uL 0.0-0.2 [facility] Automated blood lymphocyte c ount (number/volume)on 11-05-2020 Lymphocytes (Bld) [#/Vol] 3.5 10*3/uL 1.00-4.8 [facility] Automated blood lymphocyte c ount as percentage of total leukocyteson 11-05-2020 Lymphocytes/100 WBC (Bld) 26.0 % [facility] Automated blood monocyte cou nton 11-05-2020 Monocytes (Bld) [#/Vol] 1.2 10*3/uL 0.0-0.8 [facility] Automated blood platelet cou nt (count/volume)on 11-05-2020 Platelets (Bld) [#/Vol] 317 10*3/uL 150-450 [facility] Automated blood platelet jett n volume measurementon 11-05-2020 Platelet mean volume (Bld) [Entitic vol] 8.2 fL 6.3-10.7 [facility] Automated eosinophil %on Eosinophils/100 WBC (Bld) 0.5 % [facility] Automated eosinophil counton 11-05-2020 Eosinophils (Bld) [#/Vol] 0.1 10*3/uL 0.0-0.45 [facility] Automated erythrocyte distri bution width ratioon 11-05-2020 Erythrocyte distribution width (RBC) [Ratio] 13.0 % 11.9-15.3 [facility] Automated erythrocyte mean c orpuscular hemoglobin (mass per erythrocyte)on 11-05-2020 MCH (RBC) [Entitic mass] 30.2 pg 24.7-34.3 [facility] Automated erythrocyte mean c orpuscular hemoglobin concentration measurement (mass/volon 11-05-2020 MCHC (RBC) [Mass/Vol] 33.9 g/dL 32.0-35.0 [facility] Automated erythrocyte mean c orpuscular volumeon 11-05-2020 MCV (RBC) [Entitic vol] 89.1 fL 80-100 F [facility] Automated monocyte %on 11-05 Monocytes/100 WBC (Bld) 8.8 % F [facility] Automated neutrophil %on Neutrophils/100 WBC (Bld) 64.0 % [facility] Blood erythrocytes automated count (number/volume)on 11-05-2020 RBC (Bld) [#/Vol] 4.92 10*6/uL 3.60-5.[address] [facility] Blood hemoglobin measurement (mass/volume)on 11-05-2020 Hemoglobin (Bld) [Mass/Vol] 14.9 g/dL 11.8-15.4 [facility] Blood leukocytes automated c ount (number/volume)on 11-05-2020 WBC (Bld) [#/Vol] 13.4 10*3/uL 4.5-11.[address] [facility] Blood neutrophil count by au tomated method (number/volume)on 11-05-2020 Neutrophils (Bld) [#/Vol] 8.6 10*3/uL 1.8-7.7 [facility] Estimated glomerular filtrat ion rate (GFR) non- Americanon 11-05-2020 GFR/1.73 sq M predicted among non-blacks MDRD (S/P/Bld) [Vol rate/Area] mL/min/{1.73_m2} [facility] Hematocrit [Volume Fraction] of Blood by Automated counton 11-05-2020 Hematocrit (Bld) [Volume fraction] 43.8 % 34.0-46.4 [facility] Otheron 11-05-2020 GFR/1.73 sq M.predicted MDRD (S/P/Bld) [Vol rate/Area] mL/min/{1.73_m2} [facility] Comment on above: GFR estimated refere nce range: According to KDOQI guidelines, <60 ml/min/1.73m2 is sufficient to diagnose a patient with chronic kidney disease. Nucleated RBC/100 WBC (Bld) [Ratio] 0.2 % 0-0.5 [facility] Creatinine Clearance (Chem N/A [facility] Protein [Mass/volume] in Ser um or Plasmaon 11-05-2020 Protein [Mass/Vol] 7.2 g/dL 6.1-7.9 [facility] Serum globulin measurement b y calculation (mass/volume)on 11-05-2020 Globulin (S) [Mass/Vol] 2.8 g/dL F [facility] Serum glutamate decarboxylas e 65 antibody assay (units/volume)on 11-05-2020 Glutamate decarboxylase 65 Ab Qn (S) <5.0 U/mL [facility] Comment on above: Performed at: [address] [id number] Director: Ana Lee MD, Phone: [phone] Serum nuclear antibody titer on 11-05-2020 Nuclear Ab (S) [Titer] Negative [facility] Comment on above: Negative <1:80 Borde rline 1:80 Positive >1:80Performed at: [place], [place] [id number] Director: Daniel Wen PhD, Phone: [phone] Nuclear Ab (S) [Titer] Negative [facility] Comment on above: Negative <1:80 Borde rline 1:80 Positive >1:80Performed at: [place], [place] [id number] Director: Daniel Wen PhD, Phone: [phone] Serum or plasma alanine george otransferase measurement without P-5'-P (enzymatic activion 11-05-2020 ALT No additional P-5'-P [Catalytic activity/Vol] 22 U/L 10-60 [facility] Serum or plasma albumin/glob ulin mass ratioon 11-05-2020 Albumin/Globulin [Mass ratio] 1.6 {ratio} [facility] Serum or plasma alkaline lalo sphatase measurement (enzymatic activity/volume)on 11-05-2020 ALP [Catalytic activity/Vol] 60 U/L 32-92 [facility] Serum or plasma aspartate am inotransferase measurement (enzymatic activity/volume)on 11-05-2020 AST [Catalytic activity/Vol] 23 U/L 10-42 [facility] Serum or plasma calcium ashwini urement (mass/volume)on 11-05-2020 Calcium [Mass/Vol] 9.6 mg/dL 8.2-10.2 [facility] Serum or plasma chloride jett surement (moles/volume)on 11-05-2020 Chloride [Moles/Vol] 93 mmol/L 95-114 [facility] Serum or plasma creatinine m easurement with calculation of estimated glomerular filtron 11-05-2020 Creatinine [Mass/Vol] 0.62 mg/dL 0.44-1.03 [facility] Serum or plasma glucose ashwini urement (mass/volume)on 11-05-2020 Glucose [Mass/Vol] 82 mg/dL 70-100 [facility] Comment on above: ADA recommended refe rence rangeRandom Glucose Reference Range is dependent on time and content of last meal. Glucose of more than 200 mg/dL in a nonstressed, ambulatory subject supports the diagnosis of Diabetes Mellitus. Serum or plasma potassium me asurement (moles/volume)on 11-05-2020 Potassium [Moles/Vol] 4.3 mmol/L 3.5-5.1 [facility] Serum or plasma sodium measu rement (moles/volume)on 11-05-2020 Sodium [Moles/Vol] 128 mmol/L 136-146 [facility] Serum or plasma total biliru bin measurement (mass/volume)on 11-05-2020 Bilirubin [Mass/Vol] 0.6 mg/dL 0.3-1.2 [facility] Serum or plasma total carbon dioxide measurement (moles/volume)on 11-05-2020 CO2 [Moles/Vol] 22.8 mmol/L 22.0-30.0 [facility] Serum or plasma urea nitroge n measurement (mass/volume)on 11-05-2020 Urea nitrogen [Mass/Vol] 10 mg/dL 9 [facility] Automated basophil %on 10-22 Basophils/100 WBC (Bld) 0.6 % [facility] Automated basophil counton 0 10-22-2020 Basophils (Bld) [#/Vol] 0.1 10*3/uL 0.0-0.2 [facility] Automated blood lymphocyte c ount (number/volume)on 10-22-2020 Lymphocytes (Bld) [#/Vol] 2.8 10*3/uL 1.00-4.8 [facility] Automated blood lymphocyte c ount as percentage of total leukocyteson 10-22-2020 Lymphocytes/100 WBC (Bld) 23.6 % [facility] Automated blood monocyte cou nton 10-22-2020 Monocytes (Bld) [#/Vol] 1.0 10*3/uL 0.0-0.8 [facility] Automated blood platelet cou nt (count/volume)on 10-22-2020 Platelets (Bld) [#/Vol] 292 10*3/uL 150-450 [facility] Automated blood platelet jett n volume measurementon 10-22-2020 Platelet mean volume (Bld) [Entitic vol] 9.4 fL 6.3-10.7 [facility] Automated eosinophil %on Eosinophils/100 WBC (Bld) 0.5 % [facility] Automated eosinophil counton 10-22-2020 Eosinophils (Bld) [#/Vol] 0.1 10*3/uL 0.0-0.45 [facility] Automated erythrocyte distri bution width ratioon 10-22-2020 Erythrocyte distribution width (RBC) [Ratio] 12.8 % 11.9-15.3 [facility] Automated erythrocyte mean c orpuscular hemoglobin (mass per erythrocyte)on 10-22-2020 MCH (RBC) [Entitic mass] 29.5 pg 24.7-34.3 [facility] Automated erythrocyte mean c orpuscular hemoglobin concentration measurement (mass/volon 10-22-2020 MCHC (RBC) [Mass/Vol] 32.9 g/dL 32.0-35.0 [facility] Automated erythrocyte mean c orpuscular volumeon 10-22-2020 MCV (RBC) [Entitic vol] 89.6 fL 80-100 F [facility] Automated monocyte %on 10-22 Monocytes/100 WBC (Bld) 8.7 % F [facility] Automated neutrophil %on Neutrophils/100 WBC (Bld) 66.6 % [facility] Blood erythrocytes automated count (number/volume)on 10-22-2020 RBC (Bld) [#/Vol] 4.90 10*6/uL 3.60-5.[address] [facility] Blood hemoglobin measurement (mass/volume)on 10-22-2020 Hemoglobin (Bld) [Mass/Vol] 14.5 g/dL 11.8-15.4 [facility] Blood leukocytes automated c ount (number/volume)on 10-22-2020 WBC (Bld) [#/Vol] 12.1 10*3/uL 3.8-11.[address] [facility] Blood neutrophil count by au tomated method (number/volume)on 10-22-2020 Neutrophils (Bld) [#/Vol] 8.0 10*3/uL 1.8-7.7 [facility] Body fluid albumin measureme nt (mass/volume)on 10-22-2020 Albumin (Body fld) [Mass/Vol] 4.2 g/dL 3.2-5.5 [facility] Estimated glomerular filtrat ion rate (GFR) non- Americanon 10-22-2020 GFR/1.73 sq M predicted among non-blacks MDRD (S/P/Bld) [Vol rate/Area] mL/min/{1.73_m2} [facility] Hematocrit [Volume Fraction] of Blood by Automated counton 10-22-2020 Hematocrit (Bld) [Volume fraction] 43.9 % 34.0-46.4 [facility] Hematologyon 10-22-2020 Platelets (Bld) [#/Vol] Normal Normal F [facility] Otheron 10-22-2020 25-Hydroxy Vitamin D Total 13.3 ng/mL 30-100 [facility] Comment on above: VITAMIN D STATUS 25( [place])VITAMIN D RANGE (ng/mL) Deficient <20 Insufficient 20 to <30Sufficient 30 to 100Reference: Jovanni MF,Dominique NC, Gillian NINA, et al. Evaluation,treatment, and prevention of vitamin D deficiency; an Endocrine Society clinical practice guideline. JCEM. 2010; 96(7):1911-30. Cobalamin (Vitamin B12) [Mass/Vol] 438 pg/mL 180-914 [facility] GFR/1.73 sq M.predicted MDRD (S/P/Bld) [Vol rate/Area] mL/min/{1.73_m2} [facility] Comment on above: GFR estimated refere nce range: According to KDOQI guidelines, <60 ml/min/1.73m2 is sufficient to diagnose a patient with chronic kidney disease. Nucleated RBC/100 WBC (Bld) [Ratio] 0.0 % 0-0.5 [facility] Creatinine Clearance (Chem N/A [facility] Platelet Morphology Comment Normal Normal [facility] Valproic Acid (Depakene) Level 108.9 ug/mL 50.0-100.0 [facility] Comment on above: Last dose: - Protein [Mass/volume] in Ser um or Plasmaon 10-22-2020 Protein [Mass/Vol] 7.1 g/dL 6.1-7.9 [facility] RBC morphologyon 10-22-2020 RBC morphology finding Nom (Bld) Normal [facility] Serum globulin measurement b y calculation (mass/volume)on 10-22-2020 Globulin (S) [Mass/Vol] 2.9 g/dL F [facility] Serum or plasma alanine george otransferase measurement without P-5'-P (enzymatic activion 10-22-2020 ALT No additional P-5'-P [Catalytic activity/Vol] 13 U/L 10-60 [facility] Serum or plasma albumin/glob ulin mass ratioon 10-22-2020 Albumin/Globulin [Mass ratio] 1.4 {ratio} [facility] Serum or plasma alkaline lalo sphatase measurement (enzymatic activity/volume)on 10-22-2020 ALP [Catalytic activity/Vol] 53 U/L 32-92 [facility] Serum or plasma aspartate am inotransferase measurement (enzymatic activity/volume)on 10-22-2020 AST [Catalytic activity/Vol] 15 U/L 10-42 [facility] Serum or plasma calcium ashwini urement (mass/volume)on 10-22-2020 Calcium [Mass/Vol] 9.6 mg/dL 8.2-10.2 [facility] Serum or plasma chloride jett surement (moles/volume)on 10-22-2020 Chloride [Moles/Vol] 96 mmol/L 95-114 [facility] Serum or plasma creatinine m easurement with calculation of estimated glomerular filtron 10-22-2020 Creatinine [Mass/Vol] 0.54 mg/dL 0.44-1.03 [facility] Serum or plasma glucose ashwini urement (mass/volume)on 10-22-2020 Glucose [Mass/Vol] 96 mg/dL 70-100 [facility] Comment on above: ADA recommended refe rence rangeRandom Glucose Reference Range is dependent on time and content of last meal. Glucose of more than 200 mg/dL in a nonstressed, ambulatory subject supports the diagnosis of Diabetes Mellitus. Serum or plasma potassium me asurement (moles/volume)on 10-22-2020 Potassium [Moles/Vol] 4.7 mmol/L 3.5-5.1 [facility] Serum or plasma sodium measu rement (moles/volume)on 10-22-2020 Sodium [Moles/Vol] 130 mmol/L 136-146 [facility] Serum or plasma total biliru bin measurement (mass/volume)on 10-22-2020 Bilirubin [Mass/Vol] 0.3 mg/dL 0.3-1.2 [facility] Serum or plasma total carbon dioxide measurement (moles/volume)on 10-22-2020 CO2 [Moles/Vol] 22.5 mmol/L 22.0-30.0 [facility] [place] Serum or plasma urea nitroge n measurement (mass/volume)on 10-22-2020 Urea nitrogen [Mass/Vol] 5 mg/dL 9- [facility] Automated basophil %on 09-23 Basophils/100 WBC (Bld) 0.7 % F [facility] Automated basophil counton 1 11-24-2019 Basophils (Bld) [#/Vol] 0.1 10*3/uL 0.0-0.2 [facility] Automated blood lymphocyte c ount (number/volume)on 09-23-2020 Lymphocytes (Bld) [#/Vol] 3.3 10*3/uL 1.00-4.8 [facility] Automated blood lymphocyte c ount as percentage of total leukocyteson 09-23-2020 Lymphocytes/100 WBC (Bld) 27.3 % [facility] Automated blood monocyte cou nton 09-23-2020 Monocytes (Bld) [#/Vol] 1.3 10*3/uL 0.0-0.8 [facility] Automated blood platelet cou nt (count/volume)on 09-23-2020 Platelets (Bld) [#/Vol] 299 10*3/uL 150-450 [facility] Automated blood platelet jett n volume measurementon 09-23-2020 Platelet mean volume (Bld) [Entitic vol] 8.3 fL 6.3-10.7 [facility] Automated eosinophil %on Eosinophils/100 WBC (Bld) 0.7 % [facility] Automated eosinophil counton 09-23-2020 Eosinophils (Bld) [#/Vol] 0.1 10*3/uL 0.0-0.45 [facility] Automated erythrocyte distri bution width ratioon 09-23-2020 Erythrocyte distribution width (RBC) [Ratio] 12.8 % 11.9-15.3 [facility] Automated erythrocyte mean c orpuscular hemoglobin (mass per erythrocyte)on 09-23-2020 MCH (RBC) [Entitic mass] 29.8 pg 24.7-34.3 [facility] Automated erythrocyte mean c orpuscular hemoglobin concentration measurement (mass/volon 09-23-2020 MCHC (RBC) [Mass/Vol] 33.4 g/dL 32.0-35.0 [facility] Automated erythrocyte mean c orpuscular volumeon 09-23-2020 MCV (RBC) [Entitic vol] 89.3 fL 80-100 F [facility] Automated monocyte %on 09-23 Monocytes/100 WBC (Bld) 10.8 % F [facility] Automated neutrophil %on Neutrophils/100 WBC (Bld) 60.5 % [facility] Blood erythrocytes automated count (number/volume)on 09-23-2020 RBC (Bld) [#/Vol] 4.72 10*6/uL 3.60-5.[address] [facility] Blood hemoglobin measurement (mass/volume)on 09-23-2020 Hemoglobin (Bld) [Mass/Vol] 14.1 g/dL 11.8-15.4 [facility] Blood leukocytes automated c ount (number/volume)on 09-23-2020 WBC (Bld) [#/Vol] 11.9 10*3/uL 3.8-11.[address] [facility] Blood neutrophil count by au tomated method (number/volume)on 09-23-2020 Neutrophils (Bld) [#/Vol] 7.2 10*3/uL 1.8-7.7 [facility] Body fluid albumin measureme nt (mass/volume)on 09-23-2020 Albumin (Body fld) [Mass/Vol] 3.9 g/dL 3.2-5.5 [facility] Estimated glomerular filtrat ion rate (GFR) non- Americanon 09-23-2020 GFR/1.73 sq M predicted among non-blacks MDRD (S/P/Bld) [Vol rate/Area] mL/min/{1.73_m2} [facility] Hematocrit [Volume Fraction] of Blood by Automated counton 09-23-2020 Hematocrit (Bld) [Volume fraction] 42.1 % 34.0-46.4 [facility] Otheron 09-23-2020 25-Hydroxy Vitamin D Total 17.0 ng/mL 30-100 [facility] Comment on above: VITAMIN D STATUS 25( [place])VITAMIN D RANGE (ng/mL) Deficient <20 Insufficient 20 to <30Sufficient 30 to 100Reference: Jovanni MF,Dominique NC, Gillian NINA, et al. Evaluation,treatment, and prevention of vitamin D deficiency; an Endocrine Society clinical practice guideline. EM. 2010; 96(7):1911-30. GFR/1.73 sq M.predicted MDRD (S/P/Bld) [Vol rate/Area] mL/min/{1.73_m2} [facility] Comment on above: GFR estimated refere nce range: According to KDOQI guidelines, <60 ml/min/1.73m2 is sufficient to diagnose a patient with chronic kidney disease. Nucleated RBC/100 WBC (Bld) [Ratio] 0.1 % 0-0.5 [facility] Creatinine Clearance (Chem N/A [facility] Valproic Acid (Depakene) Level 45.9 ug/mL 50.0-100.0 [facility] Comment on above: Last dose: - Protein [Mass/volume] in Ser um or Plasmaon 09-23-2020 Protein [Mass/Vol] 6.7 g/dL 6.1-7.9 [facility] Serum globulin measurement b y calculation (mass/volume)on 09-23-2020 Globulin (S) [Mass/Vol] 2.8 g/dL F [facility] Serum or plasma alanine george otransferase measurement without P-5'-P (enzymatic activion 09-23-2020 ALT No additional P-5'-P [Catalytic activity/Vol] 15 U/L 1060 [facility] Serum or plasma albumin/glob ulin mass ratioon 09-23-2020 Albumin/Globulin [Mass ratio] 1.4 {ratio} [facility] Serum or plasma alkaline lalo sphatase measurement (enzymatic activity/volume)on 09-23-2020 ALP [Catalytic activity/Vol] 52 U/L 32-92 [facility] Serum or plasma aspartate am inotransferase measurement (enzymatic activity/volume)on 09-23-2020 AST [Catalytic activity/Vol] 16 U/L 10-42 [facility] Serum or plasma calcium ashwini urement (mass/volume)on 09-23-2020 Calcium [Mass/Vol] 9.2 mg/dL 8.2-10.2 [facility] Serum or plasma chloride jett surement (moles/volume)on 09-23-2020 Chloride [Moles/Vol] 102 mmol/L 95-114 [facility] Serum or plasma creatinine m easurement with calculation of estimated glomerular filtron 09-23-2020 Creatinine [Mass/Vol] 0.67 mg/dL 0.44-1.03 [facility] Serum or plasma glucose ashwini urement (mass/volume)on 09-23-2020 Glucose [Mass/Vol] 122 mg/dL 70-100 [facility] Comment on above: ADA recommended refe rence rangeRandom Glucose Reference Range is dependent on time and content of last meal. Glucose of more than 200 mg/dL in a nonstressed, ambulatory subject supports the diagnosis of Diabetes Mellitus. Serum or plasma potassium me asurement (moles/volume)on 09-23-2020 Potassium [Moles/Vol] 4.8 mmol/L 3.5-5.1 [facility] Serum or plasma sodium measu rement (moles/volume)on 09-23-2020 Sodium [Moles/Vol] 136 mmol/L 136-146 [facility] Serum or plasma total biliru bin measurement (mass/volume)on 09-23-2020 Bilirubin [Mass/Vol] 0.2 mg/dL 0.3-1.2 [facility] Serum or plasma total carbon dioxide measurement (moles/volume)on 09-23-2020 CO2 [Moles/Vol] 23.0 mmol/L 22.0-30.0 [facility] [place] Serum or plasma urea nitroge n measurement (mass/volume)on 09-23-2020 Urea nitrogen [Mass/Vol] 5 mg/dL 06-26 [facility] Lab - Other Lab Resultson Lab - Other Lab Results [id number]#[id number] Normal [facility] Coding Summaryon 06-27-2019 Coding Summary CODING DATE: 019 [facility] STATUS: Home PAYOR: Medicaid HMO ADMIT DX: REASON FOR VISIT DX: D72.829 Elevated white blood cell count, unspecified FINAL DX: PRINCIPAL: D72.829 Elevated white blood cell count, unspecified SECONDARY: M79.7 Fibromyalgia G40.909 Epilepsy, unspecified, not intractable, without status epilepticus F17.210 Nicotine dependence, cigarettes, uncomplicated PYMT PROC APC STAT DESCRIPTION DOCTOR NAME DATE NOTE: The code number assigned matches the documented diagnosis and / or procedure in the patient's chart. However, the narrative phrase printed from the coding software may appear abbreviated, or result in slightly different terminology. Revised Coded By: Karuna Piña Revised Date Saved: 06/27/2019 12:43 pm [facility] Provider Orderson 06-27-2019 Provider Orders [id number]#[facility] [id number]#[facility] .Auto Diff 1on 06-26-2019 Auto Bradford % 9 % Normal 1-12 [facility] Comment on above: Performed By: #### 1 [id number] #### [facility] (DEFAULT) [address] [place] [address] 88550 Baso Abs# 0.0 x10 Normal 0.0-0.2 [facility] Comment on above: Performed By: #### 1 [id number], [id number] #### [facility] (DEFAULT) [address] [place] [address] 00596 Basophils/100 WBC (Bld) 0.3 % Normal 0.2-2.0 [facility] Comment on above: Performed By: #### 1 [id number] #### [facility] (DEFAULT) [address] [place] [address] 94045 Eos Abs# 0.0 x10 Normal 0.0-0.4 [facility] Comment on above: Performed By: #### 1 [id number], [id number] #### [facility] (DEFAULT) [address] [place] [address] 87719 Eosinophils/100 WBC (Bld) 0.4 % Low 0.9-4.0 [facility] Comment on above: Performed By: #### 1 [id number] #### [facility] (DEFAULT) [address] [place] [address] 35577 Lymphocytes (Bld) [#/Vol] 3.7 x10 High 1.3-2.9 [facility] Comment on above: Performed By: #### 1 [id number] #### [facility] (DEFAULT) [address] [place] [address] 63135 Lymphocytes/100 WBC (Bld) 29 % Normal 14-48 [facility] Comment on above: Performed By: #### 1 [id number], [id number] #### [facility] (DEFAULT) [address] [place] [address] Bradford Abs# 1.2 x10 High 0.0-0.8 [facility] Comment on above: Performed By: #### 1 [id number], [id number] #### [facility] (DEFAULT) [address] [place] [address] Neut Abs# 7.7 x10 Normal 1.5-9.2 [facility] Comment on above: Performed By: #### 1 [id number], [id number] #### [facility] (DEFAULT) [address] [place] [address] 51853 Neutrophils/100 WBC (Bld) 61 % Normal 44-88 [facility] Comment on above: Performed By: #### 1 [id number], [id number] #### [facility] (DEFAULT) [address] [place] [address] 38562 CBC w/ Auto Diffon 9 Erythrocyte distribution width (RBC) [Ratio] 14.0 % Normal 11.5-15.0 [facility] Comment on above: Performed By: #### 1 [id number], [id number] #### [facility] (DEFAULT) [address] [place] [address] Hematocrit (Bld) [Volume fraction] 44.8 % High 33.7-40.4 [facility] Comment on above: Performed By: #### 1 [id number], [id number] #### [facility] (DEFAULT) [address] [place] [address] 21355 Hemoglobin (Bld) [Mass/Vol] 15.1 g/dL Normal 11.3-15.9 [facility] Comment on above: Performed By: #### 1 [id number], [id number] #### [facility] (DEFAULT) [address] [place] [address] 34656 Man Diff? Auto Normal [facility] Comment on above: Performed By: #### 1 [id number], [id number] #### [facility] (DEFAULT) [address] [place] [address] 21276 MCH (RBC) [Entitic mass] 30 pg Normal 24-34 [facility] Comment on above: Performed By: #### 1 [id number], [id number] #### [facility] (DEFAULT) [address] [place] [address] 91151 MCHC (RBC) [Mass/Vol] 34 g/dL Normal 26-37 [facility] Comment on above: Performed By: #### 1 [id number], [id number] #### [facility] (DEFAULT) [address] [place] [address] 24532 MCV (RBC) [Entitic vol] 89 fL Normal 81-100 [facility] Comment on above: Performed By: #### 1 [id number], [id number] #### [facility] (DEFAULT) [address] [place] [address] 86844 Platelet mean volume (Bld) [Entitic vol] 9.5 fL Normal 6.3-10.2 [facility] Comment on above: Performed By: #### 1 [id number], [id number] #### [facility] (DEFAULT) [address] [place] [address] 57506 Platelets (Bld) [#/Vol] 301 x10 Normal 138-427 [facility] Comment on above: Performed By: #### 1 [id number], [id number] #### [facility] (DEFAULT) [address] [place] [address] 05371 RBC (Bld) [#/Vol] 5.04 x10 Normal 3.70-5.30 [facility] Comment on above: Performed By: #### 1 [id number], [id number] #### [facility] (DEFAULT) [address] [place] [address] WBC (Bld) [#/Vol] 12.6 x10 [facility] Comment on above: Performed By: #### 1 [id number], [id number] #### [facility] (DEFAULT) [address] [place] [address] Lab - Other Lab Resultson Lab - Other Lab Results [id number]#[facility]2019 Outside Records [id number]#[facility] [id number]#[facility] Vital Signs Date Time Vital Sign Value Performing Clinician Facility 07-13-2023 13:55-0400 Diastolic blood pressure 93 mm[Hg] NA [facility] 07-13-2023 13:55-0400 Heart rate 87 /min NA [facility] 07-13-2023 13:55-0400 Respiratory rate 16 /min [facility] Work Phone: [facility] 07-13-2023 13:55-0400 SaO2% (BldA) [Mass fraction] 96 % NA [facility] Work Phone: [facility] 07-13-2023 13:55-0400 Systolic blood pressure 133 mm[Hg] NA [facility] Work Phone: [facility] 07-13-2023 13:16-0400 Body temperature 98 [degF] NA [facility] Work Phone: [facility] 07-13-2023 12:51-0400 Inhaled oxygen flow rate 10 L/min NA [facility] Work Phone: [facility] 07-13-2023 12:17-0400 Body height 165.1 cm NA [facility] Work Phone: [facility] 07-13-2023 12:17-0400 Body mass index (BMI) [Ratio] 28.2 kg/m2 NA [facility] Work Phone: [facility] 07-13-2023 12:17-0400 Body weight 77 kg NA [facility] Work Phone: [facility] 05-05-2023 10:18-0400 Diastolic blood pressure 90 mm[Hg] SALES ESTIMATOR-C Ajit Spasic Work Phone: [facility] 05-05-2023 10:18-0400 Heart rate 82 /min SALES ESTIMATOR-C Ajit Spasic Work Phone: [facility] 05-05-2023 10:18-0400 Respiratory rate 18 /min SALES ESTIMATOR-C Ajit Spasic Work Phone: [facility] 05-05-2023 10:18-0400 SaO2% (BldA) [Mass fraction] 98 % SALES ESTIMATOR-C Ajit Spasic Work Phone: [facility] 05-05-2023 10:18-0400 Systolic blood pressure 130 mm[Hg] SALES ESTIMATOR-C Ajit Spasic Work Phone: [facility] 05-05-2023 09:39-0400 Inhaled oxygen flow rate 3 L/min SALES ESTIMATOR-C Ajit Spasic Work Phone: [facility] 05-05-2023 08:43-0400 Body height 165.1 cm SALES ESTIMATOR-C Ajit Spasic Work Phone: [facility] 05-05-2023 08:43-0400 Body weight 74.84 kg SALES ESTIMATOR-C Ajit Spasic Work Phone: [facility] 04-14-2023 12:08-0400 Diastolic blood pressure 89 mm[Hg] SALES ESTIMATOR-C Ajit Spasic Work Phone: [facility] 04-14-2023 12:08-0400 Heart rate 71 /min SALES ESTIMATOR-C Ajit Spasic Work Phone: [facility] 04-14-2023 12:08-0400 Respiratory rate 16 /min SALES ESTIMATOR-C Ajit Spasic Work Phone: [facility] 04-14-2023 12:08-0400 SaO2% (BldA) [Mass fraction] 97 % SALES ESTIMATOR-C Ajit Spasic Work Phone: [facility] 04-14-2023 12:08-0400 Systolic blood pressure 124 mm[Hg] SALES ESTIMATOR-C Ajit Spasic Work Phone: [facility] 04-14-2023 11:29-0400 Inhaled oxygen flow rate 3 L/min SALES ESTIMATOR-C Ajit Spasic Work Phone: [facility] 04-14-2023 10:19-0400 Body height 165.1 cm SALES ESTIMATOR-C Ajit Spasic Work Phone: [facility] 04-14-2023 10:19-0400 Body weight 74.84 kg SALES ESTIMATOR-C Ajit Spasic Work Phone: [facility] 04-02-2023 11:30-0400 Body height 166.37 cm Kyler Miramontes Other [employer] Other 04-02-2023 11:30-0400 Body mass index (BMI) [Ratio] 27.04 kg/m2 Kyler Miramontes Other [employer] Other 04-02-2023 11:30-0400 Body weight 74.84 kg Kyler Miramontes Other [employer] Other 04-02-2023 11:30-0400 Diastolic blood pressure 80 mm[Hg] Kyler Miramontes Other [employer] Other 04-02-2023 11:30-0400 Systolic blood pressure 110 mm[Hg] Kyler Miramontes Other [employer] Other 11-18-2022 11:59-0500 Diastolic blood pressure 94 mm[Hg] Services [facility] [employer] Work Phone: [facility] 11-18-2022 11:59-0500 Heart rate 85 /min Services [facility] [employer] Work Phone: [facility] 11-18-2022 11:59-0500 Respiratory rate 16 /min Services [facility] [employer] Work Phone: [facility] 11-18-2022 11:59-0500 SaO2% (BldA) [Mass fraction] 98 % Services [facility] [employer] Work Phone: [facility] 11-18-2022 11:59-0500 Systolic blood pressure 140 mm[Hg] Services [facility] [employer] Work Phone: [facility] 11-18-2022 11:21-0500 Inhaled oxygen flow rate 3 L/min Services [facility] [employer] Work Phone: [facility] 11-18-2022 09:23-0500 Body height 166.[address] [facility] [employer] Work Phone: [facility] 11-18-2022 09:23-0500 Body weight 74.[address] [facility] [employer] Work Phone: [facility] 11-03-2022 11:30-0500 Body height 166.37 cm Kyler Miramontes Other [employer] Other 11-03-2022 11:30-0500 Diastolic blood pressure 80 mm[Hg] Kyler Miramontes Other [employer] Other 11-03-2022 11:30-0500 SaO2% (BldA) [Mass fraction] 98 % Kyler Miramontes Other [facility] [employer] Other 11-03-2022 11:30-0500 Systolic blood pressure 118 mm[Hg] Kyler Miramontes Other [facility] [employer] Other 07-31-2022 11:50-0400 Blood Pressure Location [employer] [facility] 07-31-2022 11:50-0400 Diastolic blood pressure 82 mm[Hg] [facility] 07-31-2022 11:50-0400 Heart rate 70 /min [facility] 07-31-2022 11:50-0400 Respiratory rate 16 /min [employer] [facility] 07-31-2022 11:50-0400 Systolic blood pressure 136 mm[Hg] [facility] 05-27-2022 09:13-0400 Body temperature 97.9 [degF] Services [facility] [employer] Work Phone: [facility] 05-27-2022 09:13-0400 Body weight 77.11 kg Services [facility] [employer] Work Phone: [facility] 05-27-2022 09:13-0400 Diastolic blood pressure 82 mm[Hg] Services [facility] [employer] Work Phone: [facility] 05-27-2022 09:13-0400 Heart rate 70 /min Services [facility] [employer] Work Phone: [facility] 05-27-2022 09:13-0400 Respiratory rate 20 /min Services [facility] Work Phone: [facility] 05-27-2022 09:13-0400 SaO2% (BldA) [Mass fraction] 98 % Services [facility] Work Phone: [facility] 05-27-2022 09:13-0400 Systolic blood pressure 121 mm[Hg] Services [facility] Work Phone: [facility] 05-27-2022 08:06-0400 Body height 166.[address] [facility] Senior Work Phone: [facility] 05-01-2022 22:19-0400 Diastolic blood pressure 70 mm[Hg] Services [facility] Work Phone: [facility] 05-01-2022 22:19-0400 Heart rate 86 /min Services [facility] Senior Work Phone: [facility] 05-01-2022 22:19-0400 Respiratory rate 18 /min Services [facility] Senior Work Phone: [facility] 05-01-2022 22:19-0400 SaO2% (BldA) [Mass fraction] 99 % Services [facility] Work Phone: [facility] 05-01-2022 22:19-0400 Systolic blood pressure 138 mm[Hg] Services [facility] Work Phone: [facility] 05-01-2022 17:09-0400 Body height 166.37 cm Services [facility] Senior Work Phone: [facility] 05-01-2022 17:09-0400 Body temperature 99.4 [degF] Services [facility] Senior Work Phone: [facility] 05-01-2022 17:09-0400 Body weight 77.[address] [facility] Senior Work Phone: [facility] 04-29-2022 14:29-0400 Body height 165.1 cm Services [facility] Senior Work Phone: [facility] 04-29-2022 14:29-0400 Body temperature 97.8 [degF] Services [facility] [employer] Work Phone: [facility] 04-29-2022 14:29-0400 Body weight 68.[address] [facility] [employer] Work Phone: [facility] 04-29-2022 14:29-0400 Diastolic blood pressure 83 mm[Hg] Services [facility] [employer] Work Phone: [facility] 04-29-2022 14:29-0400 Heart rate 70 /min Services [facility] [employer] Work Phone: [facility] 04-29-2022 14:29-0400 Respiratory rate 16 /min Services [facility] [employer] Work Phone: [facility] 04-29-2022 14:29-0400 SaO2% (BldA) [Mass fraction] 100 % Services [facility] [employer] Work Phone: [facility] 04-29-2022 14:29-0400 Systolic blood pressure 131 mm[Hg] Services [facility] [employer] Work Phone: [facility] 02-19-2022 15:45-0400 Body height 166.37 cm Kyler Miramontes Other [employer] [facility] [employer] Other 02-19-2022 15:45-0400 Body mass index (BMI) [Ratio] 27.36 kg/m2 Kyler Miramontes Other [employer] Other 02-19-2022 15:45-0400 Body weight 75.75 kg Kyler Miramontes Other [employer] Other 02-19-2022 15:45-0400 Diastolic blood pressure 64 mm[Hg] Kyler Miramontes Other [employer] Other 02-19-2022 15:45-0400 Systolic blood pressure 110 mm[Hg] Kyler Miramontes Other [employer] Other 01-28-2022 14:00-0400 Body height 166.37 cm Kyler Miramontes Other [employer] Other 01-28-2022 14:00-0400 Body mass index (BMI) [Ratio] 27.27 kg/m2 Kyler Miramontes Other [employer] Other 01-28-2022 14:00-0400 Body weight 75.48 kg Kyler Miramontes Other [employer] Other 01-28-2022 14:00-0400 Diastolic blood pressure 68 mm[Hg] Kyler Miramontes Other [employer] Other 01-28-2022 14:00-0400 Systolic blood pressure 112 mm[Hg] Kyler Miramontes Other [employer] Other 01-14-2022 12:00-0400 Body height 166.37 cm Girish Callaway Other [employer] Other 01-14-2022 12:00-0400 Body mass index (BMI) [Ratio] 25.23 kg/m2 Girish Callaway Other [employer] Other 01-14-2022 12:00-0400 Body weight 69.85 kg Girish Callaway Other [employer] Other Encounters Encounter Date Encounter Type Care Provider Facility Start: 09-28-2023 End: 09-28-2023 ambulatory Marty Visci Facility:[facility] Start: 09-16-2023 End: 09-16-2023 ambulatory Marty Visci Facility:[facility] Start: 09-16-2023 End: 09-16-2023 ambulatory SALES ESTIMATOR-C Ajit Shelton Spasic Work Phone: [facility] Work Phone: Start: 09-16-2023 End: 09-16-2023 Patient encounter procedure SALES ESTIMATOR-C Ajit Lariossic Work Phone: [facility] [facility] Work Phone: Start: 07-13-2023 End: 07-13-2023 ambulatory Marty Visci Facility:[facility] Start: 07-13-2023 End: 07-13-2023 Admission to same day surgery center NA [facility] Work Phone: [facility] [place] Start: 07-13-2023 End: 07-13-2023 ambulatory . [facility] Work Phone: [facility] Work Phone: Start: 06-30-2023 End: 06-30-2023 ambulatory Marty Visci Facility:[facility] Start: 06-30-2023 End: 06-30-2023 ambulatory . [facility] Work Phone: [facility] Work Phone: Start: 06-30-2023 End: 06-30-2023 Patient encounter procedure NA [facility] Work Phone: [facility] Work Phone: Start: 05-05-2023 (PROC) PROCEDURE [facility] Start: 05-05-2023 End: 05-05-2023 Admission to same day surgery center SALES ESTIMATOR-C Ajit Lariossic Work Phone: [facility]-Dig[facility] Work Phone: Start: 05-05-2023 End: 05-05-2023 ambulatory NON STAFF [facility] Work Phone: Start: 05-04-2023 End: 05-04-2023 ambulatory Ajit E Spasic Facility:[facility] Start: 05-04-2023 End: 05-04-2023 ambulatory NON STAFF [facility] Work Phone: Start: 05-04-2023 End: 05-04-2023 Departed Referred SALES ESTIMATOR-C Ajit Spasic Work Phone: [facility] Services Start: 04-26-2023 End: 04-26-2023 ambulatory Kyler Carlos Miramontes Facility:[facility] Start: 04-26-2023 End: 04-26-2023 Patient encounter procedure SALES ESTIMATOR-C Ajit Spasic Work Phone: [facility] [place] Work Phone: Start: 04-14-2023 (PROC) PROCEDURE Kyler Miramontes [facility] Medical OutPt Start: 04-14-2023 End: 04-14-2023 Admission to same day surgery center SALES ESTIMATOR-C Ajit Spasic Work Phone: [facility] Work Phone: Start: 04-14-2023 End: 04-14-2023 ambulatory NON STAFF [facility] [employer] Other Start: 04-02-2023 End: 04-02-2023 ambulatory Kyler Miramontes Other [facility] [employer] Other Start: 04-02-2023 Office outpatient vi sit 25 minutes Kyler Miramontes [facility] Start: 02-15-2023 End: 02-15-2023 ambulatory AJIT SPASIC Facility:[facility] Start: 02-09-2023 End: 02-09-2023 ambulatory NON STAFF Facility:[facility] Start: 02-09-2023 End: 02-09-2023 ambulatory Services [facility] Work Phone: [facility] Work Phone: Start: 02-09-2023 End: 02-09-[address] [facility] Senior Work Phone: [facility] Services Start: 01-29-2023 End: 01-29-2023 ambulatory AJIT PETTIT Facility:[facility] Start: 12-29-2022 ambulatory Joshua SILVEIRA Facility : [place] Start: 11-18-2022 (PROC) PROCEDURE Kyler Miramontes [facility] Medical OutPt Start: 11-18-2022 End: 11-18-2022 Admission to same day surgery center Services [facility] Work Phone: [facility] Work Phone: Start: 11-18-2022 End: 11-18-2022 ambulatory Services [facility] Work Phone: [facility] Work Phone: Start: 11-12-2022 End: 11-12-[address] DERICK BORRERO . Facility:[facility] Start: 11-05-2022 End: 11-05-[address] [facility] Senior Facility:[facility] Start: 11-05-2022 End: 11-05-2022 ambulatory Services [facility] Work Phone: [facility] Work Phone: Start: 11-05-2022 End: 11-05-2022 Departed Referred Services [facility] Work Phone: [facility] Start: 11-03-2022 Office outpatient vi sit 25 minutes Kyler Miramontes [facility] Start: 11-03-2022 End: 11-03-2022 ambulatory Kyler Miramontes [facility] [employer] Other Start: 11-03-2022 End: 11-03-2022 Patient encounter procedure Services [facility] Work Phone: [facility] [place] Work Phone: Start: 11-02-2022 End: 11-03-2022 ambulatory Joshua SILVEIRA Facility: [place] Start: 11-02-2022 End: 11-02-2022 Patient encounter procedure Joshua SILVEIRA [facility] [place] Start: 09-29-2022 End: 09-30-2022 ambulatory Joshua SILVEIRA Facility:[facility] Start: 09-29-2022 End: 09-29-2022 Patient encounter procedure Joshua SILVEIRA [facility] [place] Start: 08-24-2022 End: 08-25-2022 ambulatory Joshua SILVEIRA Facility:[facility] Start: 08-24-2022 End: 08-24-2022 Patient encounter procedure Joshua SILVEIRA [facility] Start: 07-31-2022 End: 08-01-2022 ambulatory MOE PAVON Facility:[facility] Start: 07-31-2022 End: 07-31-2022 Patient encounter procedure Joshua SILVEIRA [facility] [place] Start: 07-08-2022 End: 07-08-2022 ambulatory [facility] Work Phone: [facility] Work Phone: Start: 07-08-2022 End: 07-08-2022 Patient encounter procedure [facility] Work Phone: [facility] [place] Start: 06-24-2022 End: 06-24-2022 Patient encounter procedure [facility] Work Phone: [facility] [place] Start: 06-17-2022 End: 06-17-2022 Patient encounter procedure [facility] Work Phone: [facility] [place] Start: 06-09-2022 End: 06-09-2022 Patient encounter procedure [facility] Work Phone: [facility] [place] Start: 06-02-2022 End: 06-02-2022 Departed Referred Services [facility] Work Phone: [facility] Start: 05-27-2022 End: 05-27-2022 Registered Recurring Services [facility] Work Phone: [facility]Cancer Center Start: 05-07-2022 End: 05-07-2022 Patient encounter procedure [facility] Work Phone: [facility] [place] Start: 05-01-2022 End: 05-01-2022 Emergency department patient visit [facility] Work Phone: [facility]-Emergency Room Start: 05-01-2022 End: 05-01-2022 Patient encounter procedure [facility] Work Phone: [facility] [place] Start: 04-30-2022 End: 04-30-2022 Departed Referred Services [facility] Work Phone: [facility] Services Start: 04-29-2022 End: 04-29-2022 Emergency department patient visit Services [facility] Work Phone: [facility]-Emergency Room Start: 03-04-2022 (Procedure) [facility]axon [facility] Start: 03-04-2022 End: 03-04-2022 ambulatory Kyler Miramontes Other [employer] Other Start: 02-19-2022 End: 02-19-2022 ambulatory Kyler Miramontes Other [employer] Other Start: 02-19-2022 Office outpatient vi sit 25 minutes Kyler Miramontes [facility] Start: 02-11-2022 (Procedure) Short Kyler Miramontes [facility] Start: 02-11-2022 End: 02-11-2022 ambulatory Kyler Miramontes Other [facility] [employer] Other Start: 01-28-2022 End: 01-28-2022 ambulatory Kyler Miramontes Other [facility] [employer] Other Start: 01-28-2022 Office consultation new/estab patient 60 min Kyler Miramontes [facility] Start: 01-14-2022 End: 01-14-2022 ambulatory Girish Elsdeb Other [facility] [employer] Other Start: 01-14-2022 Office outpatient ne w 30 minutes Girihs Callaway [facility] Neurosurgery Start: 01-21-2021 End: 01-21-2021 Departed Referred Services [employer] Phone: -la [facility] [employer] Start: 12-24-2020 End: 12-24-2020 Patient encounter procedure Ajit Spasic -MRI [facility] Start: 12-03-2020 End: 12-03-2020 Patient encounter procedure Ajit Spasic -[facility] [place] Start: 12-02-2020 End: 12-02-2020 Patient encounter procedure Ajit Spasic -MRI [facility] Start: 11-05-2020 End: 11-05-2020 Departed Referred Ajit Yanac -[place] [facility] Services Start: 10-22-2020 End: 10-22-2020 Patient encounter procedure Ajit Yanac -XRay [facility] Start: 09-23-2020 End: 09-23-2020 Patient encounter procedure Ajit Spasic -[facility] [place] Procedures Date Procedure Procedure Detail Performing Clinician Start: 09-16-2023 Antibody screen Kyler Miramontes Comment on above: Order Comment: Date of Surgery: [id number] Result Comment: PERF ORMED BY: [facility] [address] [place] [address] PATHOLOGIST NET ARCHITECT RIDGE HUERTA M.D. Start: 07-13-2023 Hysteroscopy [facility] [employer] Work Phone: Start: 09-27-2023 Antibody screen Kyler Miramontes Comment on above: Order Comment: Date of Surgery: [id number] Result Comment: PERF ORMED BY: [facility] [place] [address] PATHOLOGIST NET ARCHITECT RIDGE HUERTA M.D. Start: 05-05-2023 Injection of local a nesthetic into sacroiliac joint SALES ESTIMATOR-C Ajit Spasic Work Phone: Start: 05-04-2023 Urine culture NA [facility] Work Phone: Start: 04-26-2023 Radiography of thoracic spine SALES ESTIMATOR-C Ajit Spasic Work Phone: Start: 04-14-2023 Epidural injection o f lumbar spine using fluoroscopic guidance SALES ESTIMATOR-C Ajit Spasic Work Phone: Start: 02-09-2023 Urine culture SALES ESTIMATOR-C Piero a Spasic Work Phone: Start: 11-18-2022 Injection of spinal epidural space Services [facility] [employer] Work Phone: Start: 11-05-[address] [facility] [employer] Work Phone: Start: 11-03-2022 X-ray of cervical spine Services [facility] [employer] Work Phone: Start: 08-24-2022 Cystourethroscopy wi dilation of urethral stricture Joshua SILVEIRA Start: 06-24-2022 MRI of head Services [facility] Senior Work Phone: Start: 06-17-[address] [facility] [employer] Work Phone: Start: 06-17-[address] [facility] [employer] Work Phone: Start: 06-09-2022 US scan of bladder Serv ices [facility] [employer] Work Phone: Start: 05-01-2022 Computed tomography of abdomen and pelvis with contrast Services [facility] [employer] Work Phone: Start: 05-01-2022 X-ray of right knee Ser vices [facility] [employer] Work Phone: Start: 04-29-2022 X-ray of left ankle Ser [facility] [employer] Work Phone: Start: 12-24-2020 MRI of left shoulder [facility] Spasic Start: 12-03-2020 MR lumbar spine wo con Ajit Spasic Start: 12-02-2020 MRI of cervical spin e with contrast Ajit Spasic Start: 12-02-2020 MRI of head Ajit Spas ic Start: 10-22-2020 X-ray of lumbar spin e, two or three views Ajit Spasic Start: 10-22-2020 XR hip LT 2V Ajit Spas ic Start: 09-23-2020 Radiography of cervical spine Ajit Spasic Appendectomy [employer] Blood culture for ba cteria, including anaerobic screen Services [facility] [employer] Work Phone: Blood culture for ba cteria, including anaerobic screen Services [facility] [employer] Work Phone: Cholecystectomy [place] Urine culture Services [facility] [employer] Work Phone: Plan of Treatment Date Care Activity Detail Author Start: 07-13-2023 End: 07-13-2023 [facility] Start: 05-05-2023 [facility] Start: 05-04-2023 Bacteria identified in Urine by Culture Urine Culture [facility] Start: 05-04-2023 Urine culture Urine Culture [facility] Start: 04-14-2023 [facility] Start: 02-09-2023 Bacteria identified in Urine by Culture [facility] Start: 11-18-2022 [facility] Start: 11-05-2022 Bacteria identified in Urine by Culture [facility] Start: 06-02-2022 End: 06-02-2022 Departed Referred Departed Referred [facility] Start: 05-27-2022 Registered Recurring Iron deficiency [facility] Start: 05-27-2022 [facility] Start: 05-07-2022 End: 05-07-2022 Patient encounter procedure Departed Clinical [facility] [place] Start: 05-01-2022 Computed tomography of abdomen and pelvis with contrast CT abdomen pelvis w con [facility] Start: 05-01-2022 End: 05-01-2022 Emergency department patient visit Departed Emergency [facility] Atopobium vaginae DN A [Presence] in Vaginal fluid by NAYELY with probe detection [facility] Bacterial vaginosis associated bacterium 2 DNA [Presence] in Vaginal fluid by NAYELY with probe detection [facility] Chlamydia trachomati s rRNA [Presence] in Cervix by NAYELY with probe detection [facility] Glucose measurement estimated from glycated hemoglobin [facility] Hemoglobin A1c/Hemoglobin.total in Blood [facility] Human papilloma viru s 16+18+31+33+35+39+45+51+5 2+56+58+59+66+68 DNA [Presence] in Cervix by Probe with signal amplification [facility] Human papilloma viru s 16+18+31+33+35+39+45+51+5 2+56+58+59+68 DNA [Presence] in Cervix by Probe with signal amplification [facility] Megasphaera sp type 1 DNA [Presence] in Vaginal fluid by NAYELY with probe detection [facility] Neisseria gonorrhoea e rRNA [Presence] in Cervix by NAYELY with probe detection [facility] Patient Education [facility] Work Phone: Patient referral [facility] Work Phone: [facility] Immunizations Immunization Date Immunization Notes Care Provider Fa paula 09-19-2021 COVID-19 mRNA, Comirnaty (Pfizer) NA [facility] [employer] [facility] Work Phone: [facility] 08-29-2021 COVID-19 mRNA, Comirnaty (Pfizer) NA [employer] [facility] Work Phone: [facility] NEGATED: Highlighted row has not occurred!10-27-2019 influenza virus vaccine, live, attenuated, for intranasal use Joshua SILVEIRA [facility] Payers Date Payer Category Payer Self-pay [id number] 2019 Unknown [id number] 1979 Unknown [id number] 2.16.8 40.1.957217.3.579.2.727 1979 Unknown [id number] 2.16.8 40.1.086618.3.579.2.727 1979 Unknown [id number] 2.16.8 40.1.150404.3.579.2.727 1979 Unknown [id number] 2.16.8 40.1.011831.3.579.2.727 1979 Unknown [id number] 2.16.8 40.1.758600.3.579.2.727 1979 Unknown [id number] 2.16.84 0.1.657612.3.579.2.593 1979 Unknown [id number] 2.16.84 0.1.641263.3.579.2.593 1979 Unknown [id number] 2.16.84 0.1.303399.3.579.2.593 1959 Medicaid [id number] Unknown [id number] Unknown [id number] 2.16.8 40.1.348983.3.579.2.531 Unknown [id number] 2.16.8 40.1.752685.3.579.2.531 Unknown [id number] 2.16.8 40.1.585689.3.579.2.531 Unknown [id number] 2.16.8 40.1.679144.3.579.2.531 Unknown [id number] 2.16.8 40.1.567476.3.579.2.531 Unknown [id number] 2.16.8 40.1.476005.3.579.2.531 Unknown [id number] 2.16.8 40.1.409667.3.579.2.531 Unknown [id number] 2.16.8 40.1.581222.3.579.2.531 Unknown [id number] 2.16.8 40.1.015658.3.579.2.531 Unknown [id number] 2.16.8 40.1.138769.3.579.2.531 Unknown [id number] 2.16.8 40.1.962595.3.579.2.531 Unknown [id number] 2.16.8 40.1.132685.3.579.2.531 Social History Date Type Detail Facility Start: 09-25-2019 End: 09-16-2023 Tobacco smoking status NHIS Smoker (finding) [facility] Start: 1980 Sex Assigned At Female F [facility] Sex Assigned At [facility] Start: 07-31-2022 Tobacco smoking status Heavy t obacco smoker (finding) [facility] Goals Date Patient Goal Desired Activity /State Functional Status Date Assessment Result Facility 11-02-2022 Functional Status N/A [facility] 08-24-2022 Functional Status N/A [facility] 07-31-2022 Functional Status N/A [facility] Clinical Notes 01-14-2022 to 05-05-2023 Note Date & Type Note Facility 05-05-2023 Procedure note [facility] 04-14-2023 Procedure note [facility] 04-02-2023 Evaluation note Encounter Date Diagnosis Assessment Notes Mar, Sacroiliitis (ICD-10 - M46.1) In the future if her pain persists or worsens, we can consider proceeding with a sacroiliac joint injection. Mar, Lumbar radiculopathy (ICD-10 - M54.16) 43 year old female here for follow up to discuss chronic pain. She was lost to follow up after left L3 and L4 transforaminal epidural steroid injection under fluoroscopic guidance 4 months ago. Patient reports 80% pain relief as well as improved walking, standing and daily functions following procedure. She voices complaints of mid to low back pain as well as increased lower extremity weakness. She feels pain is negatively impacting her daily activities and sleeping pattern. Pertinent imaging of the lumbar spine was reviewed and discussed in detail with the patient which showed a mild disc bulge causing mild narrowing of the lumbar spine as well as early signs of arthritis. Anatomy of spine as well as different treatment options were discussed in detail with patient in regards to patients condition. I recommend we proceed with a L4-5 lumbar epidural steroid injection under fluoroscopic guidance. Risks and benefits of procedure explained to patient; patient verbalizes understanding. In the meantime, patient is encouraged to start physical therapy for exercises and stretches to achieve the maximum ability to perform daily activities and movements while managing her pain. Mar, Lumbar degenerative disc disease (ICD-10 - M51.36) Continue with current treatment plan Mar, Chronic pain (ICD-10 - G89.29) Follow up after procedure Mar, Neck pain (ICD-10 - M54.2) Pertinent imaging of the cervical spine was reviewed and discussed in detail with the patient which showed straightening of the cervical spine. She is encouraged to start physical therapy for exercises and stretches to achieve the maximum ability to perform daily activities and movements while managing her pain. Mophie Other 01-31-2023 Evaluation note* Encounter Date Diagnosis Assessment Notes Treatment Notes Treatment Clinical Notes Oct, Sacroiliitis (ICD-10 - M46.1) In the future if the pain persists, we can consider proceeding with a sacroiliac joint injection. Oct, Lumbar radiculopathy (ICD-10 - M54.16) 42 year old female here for follow up to discuss chronic pain. She was last seen 7 months ago. At that time she had a bilateral SI joint injection and was lost to follow up. She reports 40-45% relief of pain for 2 weeks. She voices complaints of low back pain with radiation down the outer aspect of the left lower extremity to the calf. She feels the leg pain is new and at times gives out on her, causing her to fall. She feels pain is negatively impacting her daily activities and sleeeping pattern. Anatomy of spine as well as different treatment options were discussed in detail with patient in regards to patients condition. I recommend we proceed with a L3 and L4 transforaminal epidural steroid injection on the left under fluoroscopic guidance. Risks and benefits of procedure explained to patient; patient verbalizes understanding. Oct, Lumbar degenerative disc disease (ICD-10 - M51.36) Continue with current treatment plan Oct, Chronic pain (ICD-10 - G89.29) Continue medications as prescribed Oct, Neck pain (ICD-10 - M54.2) Patient is encouraged to start physical therapy for exercises and stretches to achieve the maximum ability to perform daily activities and movements while managing her pain. In the meantime, I will order updated imaging of the cervical spine to further evaluate her pain. Mophie Other 01-30-2023 Hospital Discharge instructions Patient Education 11/02/2022 11:20:23 Urinary Frequency, Adult Urinary Frequency, Adult Urinary frequency means urinating more often than usual. You may urinate every 1 2 hours even though you drink a normal amount of fluid and do not have a bladder infection or condition. Although you urinate more often than normal, the total amount of urine produced in a day is normal. With urinary frequency, you may have an urgent need to urinate often. The stress and anxiety of needing to find a bathroom quickly can make this urge worse. This condition may go away on its own or you may need treatment at home. Home treatment may include bladder training, exercises, taking medicines, or making changes to your diet. Follow these instructions at home: Bladder health Keep a bladder diary if told by your health care provider. Keep track of: ?What you eat and drink. ?How often you urinate. ?How much you urinate. Follow a bladder training program if told by your health care provider. This may include: ?Learning to delay going to the bathroom. ?Double urinating (voiding). This helps if you are not completely emptying your bladder. ?Scheduled voiding. Do Kegel exercises as told by your health care provider. Kegel exercises strengthen the muscles that help control urination, which may help the condition. Eating and drinking If told by your health care provider, make diet changes, such as: ?Avoiding caffeine. ?Drinking fewer fluids, especially alcohol. ?Not drinking in the evening. ?Avoiding foods or drinks that may irritate the bladder. These include coffee, tea, soda, artificial sweeteners, citrus, tomato-based foods, and chocolate. ?Eating foods that help prevent or ease constipation. Constipation can make this condition worse. Your health care provider may recommend that you: ?Drink enough fluid to keep your urine pale yellow. ?Take uvuj-ksb-spbrhhr or prescription medicines. ?Eat foods that are high in fiber, such as beans, whole grains, and fresh fruits and vegetables. ?Limit foods that are high in fat and processed sugars, such as fried or sweet foods. General instructions Take vhsz-ufo-igybsql and prescription medicines only as told by your health care provider. Keep all follow-up visits as told by your health care provider. This is important. Contact a health care provider if: You start urinating more often. You feel pain or irritation when you urinate. You notice blood in your urine. Your urine looks cloudy. You develop a fever. You begin vomiting. Get help right away if: You are unable to urinate. Summary Urinary frequency means urinating more often than usual. With urinary frequency, you may urinate every 1 2 hours even though you drink a normal amount of fluid and do not have a bladder infection or other bladder condition. Your health care provider may recommend that you keep a bladder diary, follow a bladder training program, or make dietary changes. If told by your health care provider, do Kegel exercises to strengthen the muscles that help control urination. Take ymna-sgh-btowzug and prescription medicines only as told by your health care provider. Contact a health care provider if your symptoms do not improve or get worse. This information is not intended to replace advice given to you by your health care provider. Make sure you discuss any questions you have with your health care provider. Document Released: 07/17/2010 Document Revised: 03/30/2019 Document Reviewed: 03/30/2019 [employer] Patient Education 2020 [employer]. Follow Up Care 10/22/2022 11:17:07 With:JORDANA BALDERAS, Joshua Dempsey, URL Address: [address] [place] [address] [place] [address]- Business (1) When: Unknown [facility] Ana Paula [phone] Note [id number] 08-24-2022 NoteCystoscopy with Urethral Dilation ? Voiding after the procedure: there may be some pain, urethral bleeding, burning, urgency, frequency and blood tinged urine following the procedure. These symptoms usually resolve within 2-5 days. Drink the amount of fluid it takes to keep the urine pink to yellow or clear in color. Drinking enough water and fluids will help to ease any discomfort after your procedure. ? If you are having problems that seem out of the ordinary, please call. ? If unable to contact your physician and you feel it is an emergency, go to the nearest emergency room or call 911 ? Diet ? you may resume your normal diet. ? Activity ? you may resume your normal activities ? Call if you have a fever over 100 degrees[facility] Hospital Discharge instructions Patient Education 08/24/2022 15:50:28 [facility] - Cystoscopy with Urethral Dilation Discharge Instructions (Custom) Cystoscopy with Urethral Dilation Voiding after the procedure: there may be some pain, urethral bleeding, burning, urgency, frequencyand blood tinged urine following the procedure. These symptoms usually resolve within 2-5 days. Drink the amount of fluid it takes to keep the urine pink to yellow or clear in color. Drinking enough water and fluids will help to ease any discomfort after your procedure. If you are having problems that seem out of the ordinary, please call. If unable to contact your physician and you feel it is an emergency, go to the nearest emergency room or call 911 Diet you may resume your normal diet. Activity you may resume your normal activities Call if you have a fever over 100 degrees Follow Up Care 07/31/2022 12:32:41 With:Joshua SILVEIRA Address: [address] [employer] [address] [place] [phone]- Business (1) When:6 weeks Comments:Call for followup appointment. Monitor the urinary low after the dilation today. Have a great Thanksgiving. [facility]10-28-2022 Hospital Discharge instructions Patient Education 07/31/2022 12:11:34 Urodynamic Testing Urodynamic Testing What is urodynamic testing? Urodynamic tests are done to determine how well your lower urinary tract is working. The lower urinary tract includes your bladder and the part of your body that drains urine from the bladder (urethra). When your kidneys filter your blood, urine is stored in your bladder until you feel the urge to urinate. Urination requires coordination between the nerves and muscles of your bladder and urethra. When your lower urinary tract is working well, you should be able to: Start urinating when your bladder is full. Empty your bladder completely. Control the flow of your urine. Why do I need urodynamic testing? You may need urodynamic testing to help find the cause of any of these problems: Leaking urine (incontinence). Problems starting or stopping your urine flow. Frequent or painful urination. Frequent urinary tract infections. Being unable to empty your bladder completely. Having strong urges to pass urine (urgency). Having a weak flow of urine. How do I prepare for the tests? Ask your health care provider about changing or stopping your regular medicines. This is especiallyimportant if you are taking diabetes medicines or blood thinners. You may be asked to avoid urinating before coming to the test so that you arrive with a full bladder. Tell a health care provider about: ?Any allergies you have. ?All medicines you are taking, including vitamins, herbs, eye drops, creams, and wzli-wyt-kmuedcv medicines. ?Whether you are or may be . What are the risks of this testing? Generally, these tests are safe. However, some of the tests have risks, including: Discomfort. Frequent urge to urinate. Bleeding. Infection. Allergic reactions to medicines or dyes (contrast material). How is urodynamic testing done? You may have various urodynamic tests. The tests may be done separately or may all be done during one testing visit. You may be given an antibiotic medicine before or after testing to help prevent infection. The types of tests that may be done include: Uroflowmetry This test measures how much urine you pass and how long it takes to pass. You will urinate into a certain type of toilet or device (flowmeter). The device will measure the volume and the time of your urine flow. These measurements will be sent to a computer that creates a graph of your urine flow. Postvoid residual measurement This test measures how much urine is left in your bladder after you urinate. The test may be done with ultrasound. In this method, sound waves and a computer will be used to create an image of your bladder. The test can also be done by inserting a thin, flexible tube (catheter) into your bladder after youurinate. The remaining urine will be removed through the catheter so it can be measured. Remaining urine will be measured in milliliters (mL). If you have more than 100 mL left in your bladder after you urinate, your bladder is not emptying as it should. Cystometric testing This test uses a type of bladder catheter that can measure pressure. You may be given a medicine to numb the area (local anesthetic). The area around the opening of your urethra will be cleaned. A urinary catheter will be passed through your urethra into your bladder and used to empty your bladder completely. Then a measuring catheter will be placed, and your bladder will be filled with warm, germ-free (sterile) water. Pressure measurements will be taken: ?As your bladder fills. ?When you feel the need to urinate. ?As your bladder is emptied. You may be asked to cough or bear down to check for leakage. In some cases, your bladder may be filled with a material that shows up on X- rays (contrast material) so that X-ray pictures can be taken during the test. Electromyogram This test measures the electrical activity of the nerves and muscles of your bladder and the opening of your urethra. Sticky patches (electrodes) will be placed near your rectum and urethra to measure electrical activity. The measurements will show how well your nerves are communicating with your muscles. What happens after the testing? You should be able to go home right away and do your usual activities. You may be told to drink a glass of water every 30 minutes for the first 2 hours after testing. Taking a warm bath or using warm, wet cloths (warm compresses) may relieve any discomfort near yoururethra. Contact your health care provider if you have: ?Pain. ?Blood in your urine. ?Chills. ?Fever. What do the results mean? Talk with your health care provider about what your results mean. Some common causes for abnormal results from urodynamic tests include: Enlarged prostate in men. Overactive bladder. Urinary tract infection. Nervous system diseases. Spinal cord damage. Questions to ask your health care provider Ask your health care provider, or the department that is doing the test: When will my results be ready? How will I get my results? What are my treatment options? What other tests do I need? What are my next steps? Summary Urodynamic tests are done to determine how well your lower urinary tract is working. The lower urinary tract includes your bladder and urethra. You may need urodynamic testing to help find the cause of various problems with urination, such as leaking urine (incontinence) or problems starting or stopping your urine flow. You may have various urodynamic tests. The tests may be done separately or may all be done during one testing visit. Talk with your health care provider about what your results mean. Contact your health care provider if you have pain, chills, a fever, or blood in your urine. This information is not intended to replace advice given to you by your health care provider. Make sure you discuss any questions you have with your health care provider. Document Released: 07/17/2008 Document Revised: 01/09/2020 Document Reviewed: 07/25/2018 [employer] Patient Education 2020 [employer]. Follow Up Care 07/24/2022 16:53:57 With:JORDANA BALDERAS, Joshua Dempsey, URL Address: [address] [place], [place] [id number]- When: Unknown Comments:Cysto/ Urodynamics [facility] [phone] Evaluation note* Encounter Date Diagnosis Assessment Notes Treatment Notes Treatment Clinical Notes February, Lumbosacral spondylosis (ICD-10 - M47.817) In the future if the pain persists, we can consider proceeding with a lumbar facet RFA as she has had 2 medial branch nerve blocks with Dr Ameya Hollins where she received 100% pain relief and increased function for 1 day February, Sacroiliitis (ICD-10 - M46.1) 42 year old female here for follow up status post left L3 and L4 transforaminal epidural steroid injection under fluoroscopic guidance. Patient reports 80-90% pain relief as well as improved walking, standing and daily functions following procedure. She voices complaints of low back and left hip pain. Anatomy of spine as well as different treatment options were discussed in detail with patient in regards to patients condition. I recommend we proceed with bilateral sacroiliac joint injections under fluoroscopic guidance. Risks and benefits of procedure explained to patient; patient verbalizes understanding. February, Lumbar radiculopathy (ICD-10 - M54.16) Patient reports 80-90% pain relief as well as improved walking, standing and daily functions following procedure. February, Lumbar degenerative disc disease (ICD-10 - M51.36) Continue with current treatment plan February, Chronic pain (ICD-10 - G89.29) Continue medications as prescribed February, Hip pain (ICD-10 - M25.559) If her pain persists or worsens, we can consider left hip and GT bursa injection in the future. Mophie Other 04-27-2022 Evaluation note* Encounter Date Diagnosis Assessment Notes Treatment Notes Treatment Clinical Notes Jan, Lumbar radiculopathy (ICD-10 - M54.16) 42 year old female presents with complaints of low back pain with radiation down the outer aspect of the left thigh to the foot. She notes occasional pain to the left zhong. Patient has a history of fibromyalgia. She states pain has been present since 2012, gradually worsening. She reports minimal relief following physical therapy in the past. She notes previous pain management with Dr Ameya Hollins, where she received injections with no relief. She also notes a recent consultation with Dr Callaway and is not considered a surgical candidate at this time. She feels pain is negatively impacting her daily activities and sleeping pattern. Prior to examining the patient, I reviewed progress notes from her referring physician at [facility]. I also independently reviewed previous MRI of the lumbar spine which shows degenerative disc changes as well as facet arthropathy. Anatomy of spine discussed in detail with patient in regards to patients condition. Patient is a candidate for a L3,4 transforaminal epidural steroid injection on the left side under fluoroscopic guidance. Risks and benefits of procedure explained to patient; patient verbalizes understanding. Jan, Lumbar degenerative disc disease (ICD-10 - M51.36) Continue with current treatment plan Jan, Lumbosacral spondylosis (ICD-10 - M47.817) In the future if the pain persists, we can consider proceeding with a lumbar facet RFA as she has had 2 medial branch nerve blocks with Dr Ameya Hollins where she received 100% pain relief and increased function for 1 day Jan, Sacroiliitis (ICD-10 - M46.1) In the future if the pain persists, we can consider proceeding with a bilateral sacroiliac joint injection under fluoroscopic guidance. Jan, Fibromyalgia (ICD-10 - M79.7) Continue with medication management through [facility]. I will also refer her to physical therapy for low impact body aerobics Jan, Chronic pain (ICD-10 - G89.29) Continue medications as prescribed Jan, Other Medical deci deysi making shows a new problem to me with further workup planned or suggested with the potential for extensive treatment options that were considered with the most applicable given this patient's situation as noted above. Treatment options considered include a combination of physical therapy approaches, pharmacologic management, and interventional procedures. Those most applicable to the patient were discussed at this time. Risk of complications and/or morbidity and mortality is high given that acute and chronic pain poses a threat to life and bodily function if undertreated, poorly treated or with failure to maintain adequate treatment and timely followup. Given the serious and fluctuating nature of pain with extensive consideration for whenever pain changes, there always remains the possibility of prolonged functional impairment requiring constant patient reassessment and high-level medical decision making. The amount and complexity of data reviewed is high given that patient labs, radiology reports, and other test were obtained, reviewed and summarized as applicable from the physician portal and/or outside medical records. Pertinent positive and negative findings were considered in medical decision-making. Mophie Other 04-13-2022 Evaluation note* Encounter Date Diagnosis Assessment Notes Treatment Notes Treatment Clinical Notes Jan, Neck pain (ICD-10 - M54.2) I really do not see any surgical intervention that would be warranted in either her cervical or lumbar spine. I think continue conservative therapy is warranted. Jan, Low back pain at multiple sites (ICD-10 - M54.50) Jan, Fibromyalgia (ICD-10 - M79.7) Mophie Other consorn note Author Jasmin Velázquez [facility] May 27, 2022 11:47am Note Date/Time May 27, 2022 11 :30am [facility] at [address] [address] Hem/Onc Consult Note - OP Signed Patient: Rachel Zuñiga MR#: [id number] : 1980 Acct:[id number] Age/Sex: 42 / F Type: REG RCR Copies to: [facility]~ HPI Date/Time of Service: Date of Service: 05/27/2022 Time of Service: 11:29 Referring Provider/PCP: Referring Provider: PCP: [facility] - History of Present Illness Reason for Consultation: Leukocytosis Chief Complaint: Patient is here for a referral from Ajit Pettit for leukocytosis. Replaced By [facility] labs. Patient states that she has been very tired and fatigued. HPI: Patient is a 42-year-old white lady referred for leukocytosis. She complains essentially of fatigue. She said was started on iron supplements 4 weeks ago. Initially felt better for couple of weeks then started to feel worse. She has significant stress and has been complaining of pelvic discomfort. A CT scan of the abdomen pelvis in the ED was done and described an ovarian cyst. She is in the process of being referred to a export packer. Patient smokes averaging half pack to 1 pack daily for many years. Shedoes not take prednisone or steroid inhalers. She was not on lithium. She had good work-up looking for sources of infection. Her leukocytosis has been present since at least 2018. Her differential consistently showed no abnormalities including any increased lymphocytosis or presence of more immaturecells including metamyelocytes, myelocytes or promyelocytes or any increase in basophils. Her hemoglobin has remained consistently within normal limits albeitat times at the low normal range. Platelet count has always been very well within the normal range PMFSH - Medical History Medical History: Medical History (Last Updated 05/27/22 @ 08:57 by Gladys Jang) Anxiety Autonomic epileptic seizures Cervical cancer age 24 Cyst of right ovary Diabetes Epilepsy started in childhood Fibromyalgia History of depression Hypercholesteremia IBS (irritable bowel syndrome) Leukocytosis Panic attacks Rotator cuff disorder Scoliosis Seizures Spine anomaly Type 2 diabetes mellitus without complication, with long-term current use of insulin March 2022 - Surgical History Surgical History: Surgical History (Last Reviewed 05/27/22 @ 08:57 by Gladys Jang) H/O right knee surgery History of appendectomy Hx of cholecystectomy - Family History Family History: Family History (Last Updated 05/27/22 @ 08:58 by Gladys Jang) Other Cancer Heart attack - Social History Smoking Status: Current every day smoker Tobacco Type: cigarettes Substance Use Type: None Substance Abuse Comment: Social ETOH Home Medications & Allergies Allergies amitriptyline Allergy (Verified 05/27/22 08:59) Seizure Latex, Natural Rubber Allergy (Verified 05/27/22 08:59) Unknown Reaction sulfamethoxazole [From Bactrim] Allergy (Verified 05/27/22 08:59) Seizure tramadol [From Ultram] Allergy (Verified 05/27/22 08:59) Seizure trimethoprim [From Bactrim] Allergy (Verified 05/27/22 08:59) Seizure escitalopram [From Lexapro] Adverse Reaction (Verified 05/27/22 08:59) Difficulty Breathing Home Medications gabapentin 600 mg tablet 800 mg PO TID 06/08/17 [History Confirmed 05/27/22] multivitamin 1 tab PO DAILY 06/08/17 [History Confirmed 05/27/22] tizanidine 4 mg tablet 8 mg PO Q8H PRN Muscle Spasm 06/08/17 [History Confirmed 05/27/22] divalproex 250 mg tablet,delayed release (Depakote) 500 mg PO BID 03/13/18 [History Confirmed 05/27/22] divalproex 250 mg tablet,delayed release (Depakote) 250 mg PO DAILY 09/21/18 [History Confirmed 05/27/22] acetaminophen 325 mg capsule (Tylenol) 1,000 mg PO BID 03/04/22 [History Confirmed 05/27/22] diazepam 5 mg tablet (Valium) 5 mg PO BID 03/04/22 [History Confirmed 05/27/22] melatonin 10 mg tablet 10 mg PO HS 03/04/22 [History Confirmed 05/27/22] sertraline 100 mg tablet (Zoloft) 100 mg PO DAILY 03/04/22 [History Confirmed 05/27/22] ferrous sulfate 325 mg (65 mg iron) tablet (iron) 325 mg PO DAILY 05/18/22 [History Confirmed 05/27/22] lorazepam 0.5 mg tablet 0.5 mg PO DIRECTED PRN Anxiety 05/18/22 [History Confirmed 05/27/22] meclizine 25 mg tablet 25 mg PO DAILY PRN Vertigo 05/18/22 [History Confirmed 05/27/22] metformin 500 mg tablet 500 mg PO BID 05/18/22 [History Confirmed 05/27/22] simvastatin 20 mg tablet 20 mg PO DAILY 05/18/22 [History Confirmed 05/27/22] meloxicam 15 mg tablet 15 mg PO DAILY 05/27/22 [History Confirmed 05/27/22] Subjective Data Subjective/ROS - Narrative: CONSTITUTIONAL: No weight loss, fever, chills. Complains of fatigue HEENT: Eyes: No visual loss, blurred vision, double vision or yellow sclerae. Ears, Nose, Throat: No hearing loss, epistaxis. SKIN: No rash or itching. CARDIOVASCULAR: No chest pain, chest pressure or chest discomfort. No palpitations or edema. RESPIRATORY: No shortness of breath, cough or hemoptysis. GASTROINTESTINAL: No dysphagia, nausea, vomiting or diarrhea. No abdominal pain,melena, hematochezia. Complains of pelvic pain GENITOURINARY: No dysuria, urinary frequency or urgency. NEUROLOGICAL: No headache, dizziness, syncope, numbness or tingling in the extremities. MUSCULOSKELETAL: No muscle, back pain, joint pain or stiffness. HEMATOLOGIC: No bleeding or bruising. LYMPHATICS: No enlarged nodes. PSYCHIATRIC: No history of depression or anxiety. ENDOCRINOLOGIC: No reports of sweating, cold or heat intolerance. No polyuria orpolydipsia. ALLERGIES: No history of asthma, hives, eczema or rhinitis. Objective - Height/Weight Height/Weight: Height 5 ft 5.5 in Weight 77.111 kg - Vital Signs Vital Signs: 05/27/22 09:13 Temperature 97.9 F Pulse Rate [Left Brachial] 70 Respiratory Rate 20 Blood Pressure [Left Arm] 121/82 02 Sat by Pulse Oximetry 98 Oxygen Delivery Method Room Air - Pain Generalized Pain Intensity: 8 Physical Exam Narrative: GENERAL APPEARANCE: Well developed, well nourished, in no acute distress. SKIN: Inspection of the skin reveals no rashes, ulcerations or petechiae. HEENT: The sclerae were anicteric and conjunctivae were pink and moist. EOMI, PERRLA. The oral mucosa is moist and clear. NECK: Supple and symmetric. There was no thyroid enlargement, and no tenderness,or masses were felt. CHEST: Normal contour without any kyphoscoliosis. LUNGS: Normal breath sounds on auscultation without rales, rhonchi, or crackles. CARDIOVASCULAR: S1 and S2, regular rate and rhythm, no murmurs, gallops, rubs. ABDOMEN: Soft, nontender, bowel sounds normal. No hepatosplenomegaly. No mass palpated. LYMPH NODES: No lymphadenopathy was appreciated in the neck, axillae or groin. MUSCULOSKELETAL: Gait was normal. There was no tenderness or effusions noted. Muscle strength and tone were normal. EXTREMITIES: No cyanosis, clubbing or edema. NEUROLOGIC: Alert and oriented x 3. Normal affect. Gait was normal. Sensation totouch was normal. - ECOG Performance Status ECOG Score: 0 Assessment and Plan (1) Leucocytosis Patient's leukocytosis has been present since at least 2017. Most likely is reactive secondary to stress as well as smoking. There could be a component of occult infection; however thus far had a good work-up looking for infection. There could be some sources such as perioral dental disease and the like. Regardless; to exclude any possibility of myeloproliferative including the rare chronic neutrophilic leukemia or lymphoproliferative disorder we will obtain FISH BCR /ABL, as well as flow cytometry. If there is any abnormality we will schedule patient otherwise return to office as needed with no further indicationfor any diagnostic or therapeutic hematologic intervention (2) Iron deficiency Although all the labs available in the records showed normal levels of hemoglobin. Nevertheless because of her significant smoking then could be falseelevation of the hemoglobin. As a matter fact in April 2022 there was an elevated TIBC and low iron saturation with no available ferritin. Results strongly suggest iron deficiency. She was started on iron supplements-which obviously can affect ferritin levels- but we will check one today in addition toa repeat TIBC. In the meantime we instructed the patient to continue with oral iron supplements as long as she is able to tolerate. Patient complained about fatigue which most likely if not definitely multifactorial including specifically in her case stress as well as medications that are known to cause fatigue among other side effects (3) Right ovarian cyst Because of abdominal pelvic pain patient had a CT scan abdomen pelvis done in the ED that described 3.6 cm septated ovarian cyst. She has family history of ovarian cancer including her mom and sister who according to the patient also has breast cancer. Patient is being referred to a export packer. We instructed her to call back if there is any concern for further definitive guidance and recommendations - Time with Patient Coordination of Care & Counseling Time: Greater than 50% of time spent with patient was for coordination of care (as documented) and momu-al-uxvo counseling of patient and/or family. Dictated By: Jasmin Velázquez MD DD/ [id number] Signed By: <Electronically signed by Jasmin Velázquez MD> 05/27/22 1147 [facility] Work Phone: Evaluation + Plan note Future Appointments Appointment Date:08/18/2022 08:00:00 AM Scheduled Provider: Location:[facility] Appointment Type:Urology CALL PAT FT Appointment Date:08/24/2022 02:00:00 PM Scheduled Provider: Location:[facility] Appointment Type:Urology FT Appointment Date:08/24/2022 03:00:00 PM Scheduled Provider: Location:[facility] Appointment Type:Urology FT [facility] Evaluation + Plan note Future Appointments Appointment Date:09/29/2022 10:15:00 AM Scheduled Provider:Joshua SILVEIRA MD Location[facility]ments Appointment Date:12/29/2022 10:45:00 AM Scheduled Provider:Joshua SILVEIRA MD Location:[facility] Appointment Type:URO Office Visit [facility] evaluation noteNo Assessments Information Available [facility] note[facility] InformationNort [employer] Other Evaluation note* Diagnosis Onset Date Resolution Status Iron deficiency acute Leucocytosis acute Right ovarian cyst acute [facility] Work Phone: Evaluation noteNo assessment information available [facility] Work Phone: [facility] general Narrative - Reported* Type Description Date Medical History epilepsy Medical History fibromyalgia Medical History degenerative disc disease Medical History chronic depression Medical History anxiety Medical History Panic attacks Medical History Mild scoliosis Medical History leukocytosis Medical History IBS Medical History otitis media Medical History insomnia Medical History migraine headache Surgical History appendectomy Surgical History cholecystectomy Surgical History right knee arthroscopy Hospitalization History blood infection, bowel i nfection and flu 2011 Mophie Other [facility] general Narrative - Reported* Type Description Date Medical History epilepsy Medical History fibromyalgia Medical History degenerative disc disease Medical History chronic depression Medical History anxiety Medical History Panic attacks Medical History Mild scoliosis Medical History leukocytosis Medical History IBS Medical History otitis media Medical History insomnia Medical History migraine headache Surgical History appendectomy Surgical History cholecystectomy Surgical History right knee arthroscopy Surgical History breast biopsy 02/12/22 Hospitalization History blood infection, bowel i nfection and flu 2011 Mophie Other Hospital course Narrative No data available for this section [facility] Hospital Discharge instructions No data available for this section [facility] Hospital Discharge instructions Additional Instructions DISCHARGE INSTRUCTIONS FOR DILATION & CURETTAGE (D & C) -Today, outpatient surgery has become a vital link in the health care program. Outpatient D&C is a safe and common practice and this paper is designed to help you know what to expect when you go home and under what circumstances you should give me a call. I will have all of your labs and surgery reports for you when you come in for your follow-up. -To reach me in an emergency, call the office at [[phone]]. TODAY -Take it easy the rest of the day. If you have received a general anesthetic or injections to help you relax for the local procedure you should not drive a car for at least 8 hours after surgery to make sure all of the medication has worn off. ACTIVITIES -There are no restrictions on your normal activities. Generally, you may expect to go back to work the next day unless I have given you other instructions. You should shower daily and practice good personal habits to offset the chance of infection. Avoid intercourse for one week after your surgery and you should not douche. Most women experience minimal disruption of their normal routines. BLEEDING -The amount of bleeding after a D&C varies somewhat. Some women have very little requiring onlya light pad for a few days. Other women may bleed similar to a heavy period for a week or so. [You may wear Tampax if you wish, but be sure to change often.] Do not be alarmed if you expel some clots. -If I have given you a prescription to control bleeding, get it filled on your way home, if possible, and take all the pills according to the directions on the bottle. These pills may increase the amount of your flow and give you cramping similar to first day menstrual cramps. Two Motrin every 6 hours or Anaprox every 12 hours and a heating pad should be sufficient to control any discomfort you may have. If your bleeding becomes bright red and becomes heavy enough that you have used one full pad an hour times 4 hours, I want you to give me a call. Also, if within the first week after surgery you experience chills, fever, and a change in the odor, color, or character of your drainage, you may be developing an infection and you should call me. You may expect your next period anywhere from 2 to 6 weeks after your D&C. CONTROL -Do not assume that you cannot get soon after a D&C. Practice your usual method of control beginning with the first time you have intercourse after you have surgery. If you are taking control pills, please continue them unless told otherwise. DIET -Any diet is permissible FOLLOW UP -Please call the office at [phone] to arrange an appointment to see me in 2 weeks [ ][facility] Work Phone: Progress note No data available for this section [facility] Reason for visit NarrativeReferral Ajit Pettit NP Lumbar DiscNort [employer] Other Summary Purpose Family History No Family History Records Found Relationship Condition Age at Onset Recorded Date/T marilynn Not Specified Myocardial infarction Unknown Malignant neoplasm Unknown Relationship Condition Age at Onset Recorded Date/T marilynn Not Specified Myocardial infarction Unknown Malignant neoplasm Unknown Not Specified Hypothyroidism Unknown Relationship Condition Age at Onset Recorded Date/T marilynn Not Specified Hypothyroidism Unknown Myocardial infarction Unknown Malignant neoplasm Unknown sister Hyperthyroidism Unknown Relationship Condition Age at Onset Recorded Date/T marilynn Not Specified Hypothyroidism Unknown Myocardial infarction Unknown Malignant neoplasm of ovary Unknown Malignant neoplasm of uterus Unknown sister Hyperthyroidism Unknown Malignant neoplasm of cervix Unknown Advance Directives No Advanced Directives Records Found Advance Directive Response Recorded Date/ Time Advance Directives No June 2:21am Advance Directive Response Recorded Date/ Time Advance Directives No June 3:21am Chief Complaint and Reason for Visit Chief Complaint G40.909 E55.9 M50.90 Chief Complaint G40.909 E55.9 M50.90 M25.552 Chief Complaint G40.909 E55.9 M50.90 M25.552 M25.552 R29.898 ataxic gait Cervical back pain Chief Complaint G40.909 E55.9 M50.90 M25.552 M25.552 R29.898 ataxic gait Cervical back pain m25.552 m54.17 Chief Complaint M25.552 M25.552 R29.898 ataxic gait Cervical back pain m25.552 m54.17 M75.102 Chief Complaint M25.552 R29.898 ataxic gait Cervical back pain m25.552 m54.17 M75.102 Chief Complaint lt ankle injury E11.9 G40.909 E55.9 M25.469 abnormal lab work, rt side pain D72.829 Leukocytosis D72.829 R42 Reason for Visit Iron deficiency Leucocytosis Right ovarian cyst Chief Complaint lt ankle injury E11.9 G40.909 E55.9 M25.469 abnormal lab work, rt side pain D72.829 Leukocytosis D72.829 R42 feeling of incomplete bladder emptying uterine mass Reason for Visit Iron deficiency Leucocytosis Right ovarian cyst Chief Complaint lt ankle injury E11.9 G40.909 E55.9 M25.469 abnormal lab work, rt side pain D72.829 Leukocytosis D72.829 R42 feeling of incomplete bladder emptying uterine mass feeling of incomplete bladder emp r42 migr e11.9 Reason for Visit Iron deficiency Leucocytosis Right ovarian cyst Chief Complaint lt ankle injury E11.9 G40.909 E55.9 M25.469 abnormal lab work, rt side pain D72.829 Leukocytosis D72.829 R42 feeling of incomplete bladder emptying uterine mass feeling of incomplete bladder emp r42 migr e11.9 D72.829 Reason for Visit Iron deficiency Leucocytosis Right ovarian cyst Chief Complaint M54.2 Cervical cancer screening Type 2 diabetes mellitus Chief Complaint M54.2 E11.9 R39.15 E55.9 Z12.4 Back Pain Chief Complaint Back Pain Type 2 diabetes mellitus without complication, wit Chief Complaint Type 2 diabetes scooter itus without complication, wit Back Pain Chief Complaint Type 2 diabetes scooter itus without complication, wit Back Pain M54.9 Chief Complaint Type 2 diabetes scooter itus without complication, wit Back Pain M54.9 Back Pain Chief Complaint Back Pain M54.9 R35.0 Z72.0 E11.9 N92.6 Back Pain Menorrhagia, Pelvic Pain, Fibroids Chief Complaint Back Pain M54.9 R35.0 Z72.0 E11.9 N92.6 Back Pain Menorrhagia, Pelvic Pain, Fibroids Menorrhagia, Pelvic Pain, Fibroids Chief Complaint Menorrhagia, Pelvic Pain, Fibroids Menorrhagia, Pelvic Pain, Fibroids menorrhagia, pelvic pain Assessments No Assessments Information AvailableNo Assessments Information AvailableNo Assessments Information AvailableNo Assessments Information AvailableNo Assessments Information AvailableNo Assessments Information Available Additional Source Comments INFORMATION SOURCE (unrecogn ized section and content) DATE CREATED AUTHOR 07/25/2019 [facility] DATE CREATED AUTHOR AUTHOR'S ORGANIZ ATION [facility]20[facility] DATE CREATED AUTHOR AUTHOR'S ORGANIZ ATION 02/15/2023 [facility] DATE CREATED AUTHOR AUTHOR'S ORGANIZ ATION 09/29/2023 [facility] REASON FOR VISIT (unrecogniz ed section and content) LEFT L3,4 TRANSFORAMINAL EPIDURAL STEROID INJ/ELREF BY S FOR LUMBAR DISC HERNIATIONFOLLOW UP AFTER LEFT LTRBILATERAL SACROILIAC JOINT INJECTIONINCREASE BACK PAIN RADIATING LLELEFT L3 AND L4 TRANSFORAMINAL EPIDURAL STEROID INJECTIONF/U INCREASE IN LOW BACK PAIN AND LEFT LE WEAKNESS-LOST TO FOLLOW UP LAST TIMEL4- 5 EPIDURAL STEROID INJ/ELRIGHT SACROILIAC JOINT INJ/EL Care Teams (unrecognized sec tion and content) Team Status: Inactive Member Role Status Dates Services [facility] Primary Care Provider Active Ajit Pettit SALES ESTIMATOR-C Attending Provider Active Team Status: Active Member Role Status Lorie Velázquez MD Attending Provider Active Services [facility] Primary Care Provider Active Team Status: Inactive Member Role Status [facility] Primary Care Provider Ac raya Alvarado DO Emergency Provider Active Team Status: Inactive Member Role Status Dates [facility] Primary Care Provider Ac tive Ajit Pettit , SALES ESTIMATOR-C Attending Provider Active Team Status: Inactive Member Role Status [facility] Primary Care Provider Ac raya Bergeron APRN Emergency Provider Active Team Status: Active Member Role Status [facility] Primary Care Provider Ac tive Team Status: Inactive Member Role Status Lorie Pettit SALES ESTIMATOR-C Attending Provider Active Services [facility] Primary Care Provider Ac tive Team Status: Inactive Member Role Status [facility] Primary Care Provider Ac raya Miramontes MD Attending Provider Active Team Status: Inactive Member Role Status Lorie Pettit SALES ESTIMATOR-C Attending Provider Active Team Status: Active Member Role Status Lorie . [facility] Primary Care Provider Active Team Status: Inactive Member Role Status Lorie Miramontes MD Attending Provider Active . [facility] Primary Care Provider Active Team Status: Inactive Member Role Status Lorie Pettit SALES ESTIMATOR-C Attending Provider Active NON STAFF Primary Care Provider Active Team Status: Active Member Role Status Lorie Pettit SALES ESTIMATOR-C Primary Care Provider Active Team Status: Inactive Member Role Status Lorie Pettit SALES ESTIMATOR-C Primary Care Provider, Attending Provider Active Team Status: Inactive Member Role Status Lorie Miramontes MD Attending Provider Active Ajit Pettit SALES ESTIMATOR-C Primary Care Provider Active Team Status: Inactive Member Role Status Lorie Pettit SALES ESTIMATOR-C Primary Care Provider Active Kyler Miramontes MD Attending Provider Active Team Status: Inactive Member Role Status Lorie Pettit SALES ESTIMATOR-C Primary Care Provider Active Marty Hinds DO Attending Provider Active Goals (unrecognized section and content) Goals may be documented in a n alternate section FOR RECORDS PERTAINING TO PATIENTS WHO ARE OR HAVE BEEN ENROLLED IN A CHEMICAL DEPENDENCY/SUBSTANCEABUSE PROGRAM, SOME INFORMATION MAY BE OMITTED. This clinical summary was aggregated from multiple sources. Caution should be exercised in using it in the provision of clinical care. This summary normalizes information from multiple sources, and as a consequence, information in this document may materially change the coding, format and clinical context of patient data. In addition, data may be omitted in some cases. CLINICAL DECISIONS SHOULD BE BASED ON THE PRIMARY CLINICAL RECORDS. [facility] [employer], [facility]. provides no warranty or guarantee of the accuracy or completeness of information in this document.
[2023-10-07] MEDS: MORPHINE SULFATE 4 MG/ML VIAL IV (20:06)
[2023-10-07] MEDS: ONDANSETRON PF 4 MG/2 ML VIAL IV (20:07)
[2023-10-07] MEDS: 0.9 % SODIUM CHLORIDE 1,000 ML 1000 ML IV ×2 (20:07→21:59)
[2023-10-07 20:59] LABS: Basophils Absolute Auto 0.1 10^3/uL (0.0-0.1); Basophils Percent Auto 0.3 % (0.2-2.0); Eosinophils Absolute Auto 0.2 10^3/uL (0.0-0.7); Eosinophils Percent Auto 1.2 % (0.9-7.0); Immature Granulocytes Abs Auto 0.12 10^3/uL (0.00-0.03); Immature Granulocytes Pct Auto 0.6 % (0.0-0.5); Lymphocytes Absolute Auto 2.3 10^3/uL (1.2-3.8); Lymphocytes Percent Auto 11.3 % (20.5-60.0); Mean Corpuscular HGB Conc 33.3 g/dL (29.9-35.2); Mean Corpuscular Hemoglobin 30.1 pg (26.7-34.0); Mean Corpuscular Volume 90.3 fL (81.0-99.0); Monocytes Absolute Auto 1.1 10^3/uL (0.3-0.8); Monocytes Percent Auto 5.3 % (1.7-12.0); Neutrophils Absolute Auto 16.4 10^3/uL (1.4-6.5); Neutrophils Percent Auto 81.3 % (43.0-75.0); Platelet Count 314 10^3/uL (150-450); Red Blood Count 4.32 10^6/uL (4.20-5.40); Red Cell Distribution Width 12.5 % (11.0-15.0); White Blood Count 20.1 10^3/uL (4.0-11.0)
[2023-10-07 21:11] LABS: Influenza Virus A Antigen Negative; Influenza Virus B Antigen Negative; Internal Control Within Normal Limits
[2023-10-07 21:14] LABS: Alanine Aminotransferase 19 U/L (14-59); Albumin Globulin Ratio 0.9; Alkaline Phosphatase 75 U/L (46-116); Anion Gap 13.1; Aspartate Amino Transferase 19 U/L (15-37); Bilirubin Total 0.2 mg/dL (0.2-1.0); Calcium 8.6 mg/dL (8.5-10.1); Carbon Dioxide 22.5 mmol/L (21.0-32.0); Chloride 97 mmol/L (98-107); Estimated GFR (African America >60 (>=60); Estimated GFR (Non-African Ame >60 (>=60); Globulin 3.4 g/dL; Glucose 223 mg/dL (74-106); Potassium 3.6 mmol/L (3.5-5.1); Sodium 129 mmol/L (136-145); Total Protein 6.4 g/dL (6.4-8.2)
--- NOTE | 2023-10-07 21:18 | XR_ITS ---
The [address] [address] Patient Name: RACHEL MCGARRY MRN: [id number] date: 1980 Sex: F Assigned Patient Location: ER Current Patient Location: Accession/Order Number: [id number] Exam Date: 10/07/2023 22:15 Report Date: 10/07/2023 23:09 At the request of: DERICK MARKER Procedure: XR chest 1V EXAM: XR chest 1V HISTORY: post op abd pain COMPARISON: None. TECHNIQUE: One view of the chest was obtained. FINDINGS: The cardiac silhouette is normal in size. There are mild bibasilar opacities. There is no significant pneumothorax or pleural effusion. No acute osseous abnormality is seen. XR/XR chest 1V IMPRESSION: 1. Mild suspected bibasilar atelectasis. Electronically authenticated by: Celestina SHEFFIELD Date: 10/07/2023 23:09
[2023-10-07 21:45] VITALS: BP 109/80; PULSE 106; RESP 16; O2SAT 98
[2023-10-07] MEDS: PIPERACILLIN SODIUM/TAZOBACTAM 3.375 GM in 0.9 % SODIUM CHLORIDE 50 ML IV (21:59)
[2023-10-07] MEDS: HYDROMORPHONE HCL 1 MG/ML CARTRIDGE IV (22:00)
[2023-10-07 22:01] LABS: Bilirubin Urine NEGATIVE (NEGATIVE); Blood Urine TRACE-I (NEGATIVE); Clarity Urine CLEAR (CLEAR); Color Urine YELLOW (YELLOW); Glucose Urine UA >=1000 mg/dL (NEGATIVE); Ketones Urine TRACE mg/dL (NEGATIVE); Leukocyte Esterase Urine NEGATIVE (NEGATIVE); Nitrite Urine NEGATIVE (NEGATIVE); Protein Urine NEGATIVE (NEG/TRACE); Specific Gravity Urine <=1.005 (1.005-1.025); Urobilinogen Urine 0.2 EU/dL (0.2-1.0); pH Urine 5.5 (5.0-9.0)
[2023-10-07 22:09] LABS: Bacteria Urine NONE SEEN #/HPF (NONE SEEN); Cast Seen? NONE SEEN #/LPF (NONE SEEN); Crystals Seen? None Seen #/HPF (None Seen); Mucus Urine NONE SEEN (NONE SEEN); RBC Urine 0-2 #/HPF (0-2); Squamous Epithelial Cell Urine FEW #/LPF (NONE/RARE)
[2023-10-07 22:45] VITALS: BP 110/76; PULSE 100; RESP 16; O2SAT 98
== END 2023-10-07 22:45 | disposition short-term general hospital (02) ==
PROVIDERS: Emergency Provider Emergency Medicine
DX: G89.18 Other acute postprocedural pain (principal); R10.9 Unspecified abdominal pain; E87.1 Hypo-osmolality and hyponatremia; D72.829 Elevated white blood cell count, unspecified; Z90.710 Acquired absence of both cervix and uterus; Z79.899 Other long term (current) drug therapy; Z79.85 Long-term (current) use of injectable non-insulin antidiabetic drugs; Z79.84 Long term (current) use of oral hypoglycemic drugs; F17.210 Nicotine dependence, cigarettes, uncomplicated
CPT/HCPCS: 36415; 71045; 74177; 80053; 81001; 83605; 83690; 85025; 87804; 96361; 96365; 96375; 99285; J1170; J2270; J2405; J2543; Q9967

== ENCOUNTER 2023-10-19 00:20 | Emergency (ER) | payer OTHER, SELFPAY ==
[2023-10-19 00:25] VITALS: BP 165/97; PULSE 78; RESP 16; TEMP 36.9; O2SAT 98; BMI 28.1
--- OUTSIDE RECORDS SUMMARY | 2023-10-19 00:28 | XMS_ITS | CCD ---
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 (Bld) [#/Vol] 0.9 10*3/uL High 0.0-0.8 [facility] Comment on above: Performed By: #### C BC, PTT, PT, CMP ####[address] Monocytes/100 WBC (Bld) 20.62 % High 0.00-20.00 [facility] Comment on above: Result Comment: For adults in ED, MDW > 20.0 may be associated with a higher risk of sepsis during the first 12 hrs of hospital admission Performed By: #### C BC, PTT, PT, CMP ####[address] Monocytes/100 WBC (Bld) 6.3 % Normal . [facility] Comment on above: Performed By: #### C BC, PTT, PT, CMP ####[address] Neutrophils (Bld) [#/Vol] 7.7 10*3/uL Normal 1.8-7.7 [facility] Comment on above: Performed By: #### C BC, PTT, PT, CMP ####[address] Neutrophils/100 WBC (Bld) 53.8 % Normal . [facility] Comment on above: Performed By: #### C BC, PTT, PT, CMP ####[address] NRBC% 0.1 /100{WBC} Normal 0-0.5 [facility] Comment on above: Performed By: #### C BC, PTT, PT, CMP ####[place] [address] [place] Platelet mean volume (Bld) [Entitic vol] 6.7 fL Normal 6.3-10.7 [facility] Comment on above: Performed By: #### C BC, PTT, PT, CMP ####[address] Platelets (Bld) [#/Vol] 454 10*3/uL High 150-450 [facility] Comment on above: Performed By: #### C BC, PTT, PT, CMP ####[address] RBC (Bld) [#/Vol] 3.84 10*6/uL Normal 3.60-5.00 [facility] Comment on above: Performed By: #### C BC, PTT, PT, CMP ####[address] WBC (Bld) [#/Vol] 14.3 10*3/uL High 3.8-11.6 [facility] Comment on above: Performed By: #### C BC, PTT, PT, CMP ####[address] Comprehensive Metabolic Pane mark 10-16-2023 Albumin [Mass/Vol] 3.7 g/dL Normal 3.5-5.7 [facility] Comment on above: Performed By: #### C BC, PTT, PT, CMP ####[address] Albumin/Globulin [Mass ratio] 1.4 {ratio} Normal [facility] Comment on above: Performed By: #### C BC, PTT, PT, CMP ####[address] ALP [Catalytic activity/Vol] 84 U/L Normal 34-104 [facility] Comment on above: Performed By: #### C BC, PTT, PT, CMP ####[address] ALT [Catalytic activity/Vol] 10 U/L Normal 7-52 [facility] Comment on above: Performed By: #### C BC, PTT, PT, CMP ####[address] Anion gap [Moles/Vol] 14.4 mmol/L Normal 6.0-15.0 [facility] Comment on above: Performed By: #### C BC, PTT, PT, CMP ####[address] AST [Catalytic activity/Vol] 14 U/L Normal 13-39 [facility] Comment on above: Performed By: #### C BC, PTT, PT, CMP ####[address] Bilirubin [Mass/Vol] 0.2 mg/dL Low 0.3-1.0 [facility] Comment on above: Performed By: #### C BC, PTT, PT, CMP ####[address] Calcium [Mass/Vol] 9.1 mg/dL Normal 8.6-10.3 [facility] Comment on above: Performed By: #### C BC, PTT, PT, CMP ####[address] Chloride [Moles/Vol] 101 mmol/L Normal 98-107 [facility] Comment on above: Performed By: #### C BC, PTT, PT, CMP ####[place] [id number] [facility] CO2 [Moles/Vol] 25.9 mmol/L Normal 21.0-31.0 [facility] Comment on above: Performed By: #### C BC, PTT, PT, CMP ####[place] [id number] [facility] Creatinine [Mass/Vol] 0.55 mg/dL Low 0.60-1.20 [facility] Comment on above: Performed By: #### C BC, PTT, PT, CMP ####[address] [place] [address] [place] Creatinine Clr Calc Pharmacy 134.19 Normal [facility] Comment on above: Result Comment: PERF ORMED BY: [facility] [address] [place] [address] PATHOLOGIST OIL TRUCK DRIVER RIDGE HUERTA M.D. Performed By: #### C BC, PTT, PT, CMP ####[address] GFR/1.73 sq M.predicted MDRD (S/P/Bld) [Vol rate/Area] mL/min/{1.73_m2} Normal [facility] Comment on above: Performed By: #### C BC, PTT, PT, CMP ####[address] Globulin (S) [Mass/Vol] 2.6 g/dL Normal [facility] Comment on above: Performed By: #### C BC, PTT, PT, CMP ####[address] Glucose [Mass/Vol] 197 mg/dL High 70-100 [facility] Comment on above: Result Comment: [facility] Glucose Reference Range is dependent on time and content of last meal. Glucose of more than 200 mg/dL in a nonstressed, ambulatory subject supports the diagnosis of Diabetes Mellitus. ADA recommended reference range Performed By: #### C BC, PTT, PT, CMP ####[address] Potassium [Moles/Vol] 4.3 mmol/L Normal 3.5-5.1 [facility] Comment on above: Performed By: #### C BC, PTT, PT, CMP ####[address] Protein [Mass/Vol] 6.3 g/dL Low 6.4-8.9 [facility] Comment on above: Performed By: #### C BC, PTT, PT, CMP ####[address] Sodium [Moles/Vol] 137 mmol/L Normal 136-145 [facility] Comment on above: Performed By: #### C BC, PTT, PT, CMP ####[facility] [id number] Urea nitrogen [Mass/Vol] 12 mg/dL Normal 7-25 [facility] Comment on above: Performed By: #### C BC, PTT, PT, CMP ####[facility] [id number] [place] [id number] [facility] Creatinine [Mass/volume] in Serum or PlasmaOrdered By: Diego Noble on 10-16-2023 Creatinine [Mass/Vol] 0.55 mg/dL 0.60-1.20 [facility] Eosinophils Auto (Bld) [#/Vo l]Ordered By: Diego Noble on 10-16-2023 Eosinophils (Bld) [#/Vol] 0.5 10*3/uL 0.0-0.45 [facility] Eosinophils/100 WBC Auto (Bl d)Ordered By: Diego Noble on 10-16-2023 Eosinophils/100 WBC (Bld) 3.3 % . [facility] Erythrocyte distribution wid th Auto (RBC) [Ratio]Ordered By: Diego Noble on 10-16-2023 Erythrocyte distribution width (RBC) [Ratio] 13.0 % 11.9-15.3 [facility] Globulin Calc (S) [Mass/Vol] Ordered By: Diego Noble on 10-16-2023 Globulin (S) [Mass/Vol] 2.6 g/dL [facility] Glucose [Mass/volume] in Ser um or PlasmaOrdered By: Diego Noble on 10-16-2023 Glucose [Mass/Vol] 197 mg/dL 70-100 [facility] Comment on above: ADA recommended refe rence rangeRandom Glucose Reference Range is dependent on time and content of last meal. Glucose of more than 200 mg/dL in a nonstressed, ambulatory subject supports the diagnosis of Diabetes Mellitus. Hematocrit Auto (Bld) [Volum e fraction]Ordered By: Diego Noble on 10-16-2023 Hematocrit (Bld) [Volume fraction] 34.0 % 34.0-46.4 [facility] Hemoglobin [Mass/volume] in BloodOrdered By: Diego Noble on 10-16-2023 Hemoglobin (Bld) [Mass/Vol] 11.6 g/dL 11.8-15.4 [facility] INR in Platelet poor plasma by Coagulation assayOrdered By: Diego Noble on 10-16-2023 INR Coag (PPP) [Relative time] 0.9 {INR} [facility] Comment on above: INR Therapeutic Rang e A) Pre- and Peroperative OAT started two weeks before surgery. NOT HIP SURGERY: 1.5 - 2.5 HIP SURGERY: 2 - 3B) Primary and secondary prevention of venous THROMBOSIS: 2 - 3C) Active venous thrombosis, pulmonary embolismand prevention of recurrent venous thrombosis: 2 - 3D) Prevention of arterial thromboembolismincluding patients with mechanical heart valves: 3 - 4.5 Lactate [Moles/volume] in Se rum or PlasmaOrdered By: Diego Noble on 10-16-2023 Lactate [Moles/Vol] 2.1 mmol/L 0.5-2.2 [facility] Comment on above: Critical Result : Ca lled to and read back by: MACO BECK at: 10/16/2023 12:33:20 by:ECTOR Lactic Acidon 10-16-2023 Lactate [Moles/Vol] 2.1 mmol/L Off scale high 0.5-2.2 [facility] Comment on above: Result Comment: Crit ical Result : Called to and read back by: MACO BECK at: 10/16/2023 12:33:20 by:ECTOR PERFORMED BY: [place] [address] PATHOLOGIST OIL TRUCK DRIVER RIDGE HUERTA M.D. Performed By: #### L DOUG SIMENTAL #### [address] Leukocytes [#/volume] correc cherie for nucleated erythrocytes in Blood by Automated counOrdered By: Diego Noble on 10-16-2023 WBC corrected for nucl RBC Auto (Bld) [#/Vol] 14.3 10*3/uL 3.8-11.6 [facility] Lymphocytes Auto (Bld) [#/Vo l]Ordered By: Diego Noble on 10-16-2023 Lymphocytes (Bld) [#/Vol] 4.9 10*3/uL 1.00-4.8 [facility] Lymphocytes/100 WBC Auto (Bl d)Ordered By: Diego Noble on 10-16-2023 Lymphocytes/100 WBC (Bld) 34.0 % . [facility] MCH Auto (RBC) [Entitic mass ]Ordered By: Diego Noble on 10-16-2023 MCH (RBC) [Entitic mass] 30.3 pg 24.7-34.3 [facility] MCHC Auto (RBC) [Mass/Vol]Or dered By: Diego Noble on 10-16-2023 MCHC (RBC) [Mass/Vol] 34.1 g/dL 32.0-35.0 [facility] MCV Auto (RBC) [Entitic vol] Ordered By: Diego Noble on 10-16-2023 MCV (RBC) [Entitic vol] 88.7 fL 80-100 [facility] Monocyte distribution width [Entitic volume] in Blood by AutomatedOrdered By: Diego Noble on 10-16-2023 Monocyte distribution width Auto (Bld) [Entitic vol] 20.62 % 0.00-20.00 [facility] Comment on above: For adults in ED, MD W > 20.0 may be associated with a higher risk of sepsis during the first 12 hrs of hospital admission Monocytes Auto (Bld) [#/Vol] Ordered By: Diego Noble on 10-16-2023 Monocytes (Bld) [#/Vol] 0.9 10*3/uL 0.0-0.8 [facility] Monocytes/100 WBC Auto (Bld) Ordered By: Diego Noble on 10-16-2023 Monocytes/100 WBC (Bld) 6.3 % . [facility] Neutrophils Auto (Bld) [#/Vo l]Ordered By: Diego Noble on 10-16-2023 Neutrophils (Bld) [#/Vol] 7.7 10*3/uL 1.8-7.7 [facility] Neutrophils/100 WBC Auto (Bl d)Ordered By: Diego Noble on 10-16-2023 Neutrophils/100 WBC (Bld) 53.8 % . [facility] No Panel InformationOrdered By: Diego Noble on 10-16-2023 Estimated GFR (CKD-EPI) > 60.0 mL/Min [facility] Creatinine Clearance (Chem 134.19 [facility] Nucleated erythrocytes [Pres ence] in Blood by Automated countOrdered By: Diego Noble on 10-16-2023 Nucleated RBC Auto Ql (Bld) 0.1 /100{WBC} 0-0.5 [facility] Partial Thromboplastin Timeo n 10-16-2023 aPTT Coag (Bld) [Time] 28.2 s Normal 25.1-36.5 [facility] Comment on above: Result Comment: A he matocrit value greater than 55% may lead to inaccurate results in coagulation testing. Patients having hematocrit values >55% require a special collection tube for coagulation studies. Please contact the laboratory at [phone] for redraw instructions. PERFORMED BY: [facility] [address] [place] [address] PATHOLOGIST OIL TRUCK DRIVER RIDGE HUERTA M.D. Performed By: #### C BC, PTT, PT, CMP ####[facility] [id number] Platelet mean volume Auto (B ld) [Entitic vol]Ordered By: Diego Noble on 10-16-2023 Platelet mean volume (Bld) [Entitic vol] 6.7 fL 6.3-10.7 [facility] Platelets Auto (Bld) [#/Vol] Ordered By: Diego Noble on 10-16-2023 Platelets (Bld) [#/Vol] 454 10*3/uL 150-450 [facility] Potassium [Moles/volume] in Serum or PlasmaOrdered By: Diego Noble on 10-16-2023 Potassium [Moles/Vol] 4.3 mmol/L 3.5-5.1 [facility] Protein [Mass/volume] in Ser um or PlasmaOrdered By: Diego Noble on 10-16-2023 Protein [Mass/Vol] 6.3 g/dL 6.4-8.9 [facility] Prothrombin Time INRon 10-16 INR Coag (PPP) [Relative time] 0.9 {INR} Normal [facility] Comment on above: Result Comment: INR Therapeutic Range A) Pre- and Peroperative OAT started two weeks before surgery. NOT HIP SURGERY: 1.5 - 2.5 HIP SURGERY: 2 - 3 B) Primary and secondary prevention of venous THROMBOSIS: 2 - 3 C) Active venous thrombosis, pulmonary embolism and prevention of recurrent venous thrombosis: 2 - 3 D) Prevention of arterial thromboembolism including patients with mechanical heart valves: 3 - 4.5 Performed By: #### C BC, PTT, PT, CMP ####[facility] [id number] [place] [address] [facility] PT Coag (PPP) [Time] 9.9 s Normal 9.0-12.9 [facility] Comment on above: Result Comment: A he matocrit value greater than 55% may lead to inaccurate results in coagulation testing. Patients having hematocrit values >55% require a special collection tube for coagulation studies. Please contact the laboratory at [phone] for redraw instructions. Performed By: #### C BC, PTT, PT, CMP ####[facility] [id number] [place] [address] [facility] Prothrombin time (PT)Ordered By: Diego Noble on 10-16-2023 PT Coag (PPP) [Time] 9.9 s 9.0-12.9 [facility] Comment on above: A hematocrit value g reater than 55% may lead to inaccurate results in coagulation testing. Patients having hematocrit values >55% require a special collection tube for coagulation studies. Please contact the laboratory at [phone] for redraw instructions. RBC Auto (Bld) [#/Vol]Ordere d By: Diego Noble on 10-16-2023 RBC (Bld) [#/Vol] 3.84 10*6/uL 3.60-5.00 [facility] Serum or plasma albumin/glob ulin mass ratioOrdered By: Diego Noble on 10-16-2023 Albumin/Globulin [Mass ratio] 1.4 {ratio} [facility] Serum or plasma anion gap de terminationOrdered By: Diego Noble on 01-13-2024 Anion gap [Moles/Vol] 14.4 mmol/L 6.0-15.0 [facility] Sodium [Moles/volume] in Ser um or PlasmaOrdered By: Diego Noble on 10-16-2023 Sodium [Moles/Vol] 137 mmol/L 136-145 [facility] Urea nitrogen [Mass/volume] in Serum or PlasmaOrdered By: Diego Noble on 10-16-2023 Urea nitrogen [Mass/Vol] 12 mg/dL 7-25 [facility] WBC Auto (Bld) [#/Vol]Ordere d By: Diego Noble on 10-16-2023 WBC (Bld) [#/Vol] 14.3 10*3/uL 3.8-11.6 [facility] Basic Metabolic Panelon Anion gap [Moles/Vol] 11.8 mmol/L Normal 6.0-15.0 [facility] Comment on above: Performed By: #### C BC, BMP ####[place] [id number] [facility] Calcium [Mass/Vol] 7.9 mg/dL Low 8.6-10.3 [facility] Comment on above: Performed By: #### C BC, BMP ####[address] [facility] Chloride [Moles/Vol] 105 mmol/L Normal 98-107 [facility] Comment on above: Performed By: #### C BC, BMP ####[address] [facility] CO2 [Moles/Vol] 22.6 mmol/L Normal 21.0-31.0 [facility] Comment on above: Performed By: #### C BC, BMP ####[address] [facility] Creatinine [Mass/Vol] 0.48 mg/dL Low 0.60-1.20 [facility] Comment on above: Performed By: #### C BC, BMP ####[address] [address] [place] Creatinine Clr Calc Pharmacy 153.15 [facility] Comment on above: Result Comment: PERF ORMED BY: [facility] [address] [place] [id number] PATHOLOGIST OIL TRUCK DRIVER RIDGE HUERTA M.D. Performed By: #### C BC, BMP ####[place] [id number] [place] [id number] [facility] GFR/1.73 sq M.predicted MDRD (S/P/Bld) [Vol rate/Area] mL/min/{1.73_m2} [facility] Comment on above: Performed By: #### C BC, BMP ####[place] [id number] [place] [id number] [facility] Glucose [Mass/Vol] 143 mg/dL High 70-100 [facility] Comment on above: Result Comment: [facility] Glucose Reference Range is dependent on time and content of last meal. Glucose of more than 200 mg/dL in a nonstressed, ambulatory subject supports the diagnosis of Diabetes Mellitus. ADA recommended reference range Performed By: #### C BC, BMP ####[place] [id number] [place] [address] [facility] Potassium [Moles/Vol] 3.4 mmol/L Low 3.5-5.1 [facility] Comment on above: Performed By: #### C BC, BMP ####[place] [id number] [place] [id number] [facility] Sodium [Moles/Vol] 136 mmol/L Normal 136-145 [facility] Comment on above: Performed By: #### C BC, BMP ####[place] [id number] [place] [address] [facility] Urea nitrogen [Mass/Vol] 6 mg/dL Low 7-25 [facility] Comment on above: Performed By: #### C BC, BMP ####[place] [id number] [place] [id number] [place] Basophils Auto (Bld) [#/Vol] Ordered By: Ilene Lopez on 10-09-2023 Basophils (Bld) [#/Vol] 0.1 10*3/uL 0.0-0.2 [facility] Basophils/100 WBC Auto (Bld) Ordered By: Ilene Lopez on 10-09-2023 Basophils/100 WBC (Bld) 0.4 % . [facility] Calcium [Mass/volume] in Ser um or PlasmaOrdered By: Ilene Lopez on 10-09-2023 Calcium [Mass/Vol] 7.9 mg/dL 8.6-10.3 [facility] Carbon dioxide, total [Moles /volume] in Serum or PlasmaOrdered By: Ilene Lopez on 10-09-2023 CO2 [Moles/Vol] 22.6 mmol/L 21.0-31.0 [facility] Chloride [Moles/volume] in S alissa or PlasmaOrdered By: Ilene Lopez on 10-09-2023 Chloride [Moles/Vol] 105 mmol/L 98-107 [facility] Clostridioides difficile tox in B tcdB gene [Presence] in Stool by NAYELY with probe deteOrdered By: BONG Pavon on 10-09-2023 C. difficile toxin B tcdB gene NAYELY+probe Ql (Stl) Positive Negative [facility] Comment on above: Results calledat 161 9 on 10/09/23 Testing performed by RT-PCR Clostridium Difficileon Clostridium Difficile Positive Normal Negative [facility] Comment on above: Order Comment: Date of Surgery: [id number] Result Comment: Resu lts called at 1619 on 10/09/23 Testing performed by RT-PCR PERFORMED BY: [facility] [address] [place] [id number] PATHOLOGIST OIL TRUCK DRIVER RIDGE HEURTA M.D. Performed By: #### C DT ####[facility] [place] [id number] [facility] Complete Blood Count Auto Di ffon 10-09-2023 Basophils (Bld) [#/Vol] 0.1 10*3/uL Normal 0.0-0.2 [facility] Comment on above: Result Comment: PERF ORMED BY: [facility] [address] [place] [address] PATHOLOGIST OIL TRUCK DRIVER RIDGE HUERTA M.D. Performed By: #### C ASHLEY, BMP ####[place] [id number] Basophils/100 WBC (Bld) 0.4 % Normal . [facility] Comment on above: Performed By: #### C BC, BMP ####[address] Eosinophils (Bld) [#/Vol] 0.5 10*3/uL High 0.0-0.45 [facility] Comment on above: Performed By: #### C ASHLEY, BMP ####[address] Eosinophils/100 WBC (Bld) 3.5 % Normal . [facility] Comment on above: Performed By: #### C ASHLEY, BMP ####[address] Erythrocyte distribution width (RBC) [Ratio] 13.2 % Normal 11.9-15.3 [facility] Comment on above: Performed By: #### C ASHLEY, BMP ####[address] Hematocrit (Bld) [Volume fraction] 30.3 % Low 34.0-46.4 [facility] Comment on above: Performed By: #### C ASHLEY, BMP ####[address] Hemoglobin (Bld) [Mass/Vol] 10.3 g/dL Low 11.8-15.4 [facility] Comment on above: Performed By: #### C BC, BMP ####[address] Lymphocytes (Bld) [#/Vol] 2.2 10*3/uL Normal 1.00-4.8 [facility] Comment on above: Performed By: #### C BC, BMP ####[address] Lymphocytes/100 WBC (Bld) 16.5 % Normal . [facility] Comment on above: Performed By: #### C ASHLEY, BMP ####[address] MCH (RBC) [Entitic mass] 29.9 pg Normal 24.7-34.3 [facility] Comment on above: Performed By: #### C BC, BMP ####[address] MCV (RBC) [Entitic vol] 88.1 fL Normal 80-100 [facility] Comment on above: Performed By: #### C ASHLEY, BMP ####[address] Mean Corpuscular HGB Conc 34.0 g/dL Normal 32.0-35.0 [facility] Comment on above: Performed By: #### C ASHLEY, BMP ####[address] Monocytes (Bld) [#/Vol] 1.3 10*3/uL High 0.0-0.8 [facility] Comment on above: Performed By: #### Jorge RAMIREZ, BMP ####[address] Monocytes/100 WBC (Bld) 9.5 % Normal . [facility] Comment on above: Performed By: #### C ASHLEY, BMP ####[address] Neutrophils (Bld) [#/Vol] 9.6 10*3/uL High 1.8-7.7 [facility] Comment on above: Performed By: #### C ASHLEY, BMP ####[address] Neutrophils/100 WBC (Bld) 70.1 % Normal . [facility] Comment on above: Performed By: #### C BC, BMP ####[address] NRBC% 0.1 /100{WBC} Normal 0-0.5 [facility] Comment on above: Performed By: #### C ASHLEY, BMP ####[address] Platelet mean volume (Bld) [Entitic vol] 7.9 fL Normal 6.3-10.7 [facility] Comment on above: Performed By: #### C ASHLEY, BMP ####[address] Platelets (Bld) [#/Vol] 242 10*3/uL Normal 150-450 [facility] Comment on above: Performed By: #### C ASHLEY, BMP ####[address] RBC (Bld) [#/Vol] 3.44 10*6/uL Low 3.60-5.00 [facility] Comment on above: Performed By: #### C ASHLEY, BMP ####[address] WBC (Bld) [#/Vol] 13.6 10*3/uL High 3.8-11.6 [facility] Comment on above: Performed By: #### Jorge RAMIREZ, BMP ####[address] Creatinine [Mass/volume] in Serum or PlasmaOrdered By: Ilene Lopez on 10-09-2023 Creatinine [Mass/Vol] 0.48 mg/dL 0.60-1.20 [facility] Eosinophils Auto (Bld) [#/Vo l]Ordered By: Ilene Lopez on 10-09-2023 Eosinophils (Bld) [#/Vol] 0.5 10*3/uL 0.0-0.45 [facility] Eosinophils/100 WBC Auto (Bl d)Ordered By: Ilene Lopez on 10-09-2023 Eosinophils/100 WBC (Bld) 3.5 % . [facility] Erythrocyte distribution wid th Auto (RBC) [Ratio]Ordered By: Ilene Calderon on 10-09-2023 Erythrocyte distribution width (RBC) [Ratio] 13.2 % 11.9-15.3 [facility] Glucose Glucometer (BldC) [M ass/Vol]Ordered By: Salazar Cabrera on 10-09-2023 Glucose [Mass/Vol] 299 mg/dL [facility] Comment on above: Random Glucose Refer ence Range is dependent on time and content of last meal. Glucose of more than 200 mg/dL in a nonstressed, ambulatory subject supports the diagnosis of Diabetes Mellitus. Glucose Poct Glucometerson 0 10-09-2023 Commemt1 Glu2: Cleaned Meter [facility] Comment on above: Result Comment: PERF ORMED BY: [address] [place] [address] PATHOLOGIST OIL TRUCK DRIVER RIDGE HUERTA M.D. Performed By: #### G LULS ####Point of Care testing, Glucose [Mass/Vol] 299 mg/dL Normal [facility] Comment on above: Result Comment: [facility] om Glucose Reference Range is dependent on time and content of last meal. Glucose of more than 200 mg/dL in a nonstressed, ambulatory subject supports the diagnosis of Diabetes Mellitus. Performed By: #### G LULS ####Point of Care testing, Commemt1 Glu2: Cleaned Meter [facility] Comment on above: Result Comment: PERF ORMED BY: [facility] [address] [place] [address] PATHOLOGIST OIL TRUCK DRIVER RIDGE HUERTA M.D. Performed By: #### G LULS ####Point of Care testing, Glucose [Mass/Vol] 188 mg/dL Normal [facility] Comment on above: Result Comment: [facility] om Glucose Reference Range is dependent on time and content of last meal. Glucose of more than 200 mg/dL in a nonstressed, ambulatory subject supports the diagnosis of Diabetes Mellitus. Performed By: #### G LULS ####Point of Care testing, Glucose [Mass/Vol] 194 mg/dL Normal [facility] Comment on above: Result Comment: [facility] Glucose Reference Range is dependent on time and content of last meal. Glucose of more than 200 mg/dL in a nonstressed, ambulatory subject supports the diagnosis of Diabetes Mellitus. PERFORMED BY: [facility] [place] [address] PATHOLOGIST OIL TRUCK DRIVER RIDGE HUERTA M.D. Performed By: #### G EDUARDO ####Point of Care testing, Glucose [Mass/volume] in Ser um or PlasmaOrdered By: Ilene Lopez on 10-09-2023 Glucose [Mass/Vol] 143 mg/dL 70-100 [facility] Comment on above: ADA recommended refe rence rangeRandom Glucose Reference Range is dependent on time and content of last meal. Glucose of more than 200 mg/dL in a nonstressed, ambulatory subject supports the diagnosis of Diabetes Mellitus. Hematocrit Auto (Bld) [Volum e fraction]Ordered By: Ilene Lopez on 10-09-2023 Hematocrit (Bld) [Volume fraction] 30.3 % 34.0-46.4 [facility] Hemoglobin [Mass/volume] in BloodOrdered By: Ilene Lopez on 10-09-2023 Hemoglobin (Bld) [Mass/Vol] 10.3 g/dL 11.8-15.4 [facility] Leukocytes [#/volume] correc cherie for nucleated erythrocytes in Blood by Automated counOrdered By: Ilene Lopez on 10-09-2023 WBC corrected for nucl RBC Auto (Bld) [#/Vol] 13.6 10*3/uL 3.8-11.6 [facility] Lymphocytes Auto (Bld) [#/Vo l]Ordered By: Ilene Lopez on 10-09-2023 Lymphocytes (Bld) [#/Vol] 2.2 10*3/uL 1.00-4.8 [facility] Lymphocytes/100 WBC Auto (Bl d)Ordered By: Ilene Lopez on 10-09-2023 Lymphocytes/100 WBC (Bld) 16.5 % . [facility] MCH Auto (RBC) [Entitic mass ]Ordered By: Ilene Lopez on 10-09-2023 MCH (RBC) [Entitic mass] 29.9 pg 24.7-34.3 [facility] MCHC Auto (RBC) [Mass/Vol]Or dered By: Ilene Lopez on 10-09-2023 MCHC (RBC) [Mass/Vol] 34.0 g/dL 32.0-35.0 [facility] MCV Auto (RBC) [Entitic vol] Ordered By: Ilene Lopez on 10-09-2023 MCV (RBC) [Entitic vol] 88.1 fL 80-100 [facility] Monocytes Auto (Bld) [#/Vol] Ordered By: Ilene Lopez on 10-09-2023 Monocytes (Bld) [#/Vol] 1.3 10*3/uL 0.0-0.8 [facility] Monocytes/100 WBC Auto (Bld) Ordered By: Ilene Lopez on 10-09-2023 Monocytes/100 WBC (Bld) 9.5 % . [facility] Neutrophils Auto (Bld) [#/Vo l]Ordered By: Ilene Lopez on 10-09-2023 Neutrophils (Bld) [#/Vol] 9.6 10*3/uL 1.8-7.7 [facility] Neutrophils/100 WBC Auto (Bl d)Ordered By: Ilene Lopez on 10-09-2023 Neutrophils/100 WBC (Bld) 70.1 % . [facility] No Panel InformationOrdered By: Salazar Cabrera on 10-09-2023 Bedside Glucose Comment Glu2: cleaned meter [facility] No Panel InformationOrdered By: Ilene Lopez on 10-09-2023 Estimated GFR (CKD-EPI) > 60.0 mL/Min [facility] Creatinine Clearance (Chem 153.15 [facility] Nucleated erythrocytes [Pres ence] in Blood by Automated countOrdered By: Ilene Lopez on 10-09-2023 Nucleated RBC Auto Ql (Bld) 0.1 /100{WBC} 0-0.5 [facility] Platelet mean volume Auto (B ld) [Entitic vol]Ordered By: Ilene Lopez on 10-09-2023 Platelet mean volume (Bld) [Entitic vol] 7.9 fL 6.3-10.7 [facility] Platelets Auto (Bld) [#/Vol] Ordered By: Ilene Loepz on 10-09-2023 Platelets (Bld) [#/Vol] 242 10*3/uL 150-450 [facility] Potassium [Moles/volume] in Serum or PlasmaOrdered By: Ilene Lopez on 10-09-2023 Potassium [Moles/Vol] 3.4 mmol/L 3.5-5.1 [facility] RBC Auto (Bld) [#/Vol]Ordere d By: Ilene Lopez on 10-09-2023 RBC (Bld) [#/Vol] 3.44 10*6/uL 3.60-5.00 [facility] Serum or plasma anion gap de terminationOrdered By: Ilene Lopez on 10-09-2023 Anion gap [Moles/Vol] 11.8 mmol/L 6.0-15.0 [facility] Sodium [Moles/volume] in Ser um or PlasmaOrdered By: Ilene Lopez on 10-09-2023 Sodium [Moles/Vol] 136 mmol/L 136-145 [facility] Stool Cultureon 10-09-2023 Stool culture Comment c. diff Negative for Shiga Toxin 1 Negative for Shiga Toxin 2 A negative Shiga Toxin result may occur if the antigen level in the specimen is below the detection limit of the assay. Stool culture results No Salmonella, Shigella, Campy or E. 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 Normal [facility] Comment on above: Performed By: #### C USTOOL #### [place] [address] [facility] Stool bacteria identificatio n by cultureOrdered By: BONG Pavon on 10-09-2023 Bacteria identified Cx Nom (Stl) [facility] Urea nitrogen [Mass/volume] in Serum or PlasmaOrdered By: Ilene Lopez on 10-09-2023 Urea nitrogen [Mass/Vol] 6 mg/dL 7-25 [facility] WBC Auto (Bld) [#/Vol]Ordere d By: Ilene Lopez on 10-09-2023 WBC (Bld) [#/Vol] 13.6 10*3/uL 3.8-11.6 [facility] Alanine aminotransferase [En zymatic activity/volume] in Serum or PlasmaOrdered By: BONG Pavon on 10-08-2023 ALT [Catalytic activity/Vol] 31 U/L 7-52 [facility] Albumin [Mass/volume] in Ser um or Plasma by Bromocresol green (BCG) dye binding methoOrdered By: BONG Pavon on 10-08-2023 Albumin BCG dye [Mass/Vol] 3.7 g/dL 3.5-5.7 [facility] Alkaline phosphatase [Enzyma tic activity/volume] in Serum or PlasmaOrdered By: BONG Pavon on 10-08-2023 ALP [Catalytic activity/Vol] 61 U/L 34-104 [facility] Aspartate aminotransferase [ Enzymatic activity/volume] in Serum or PlasmaOrdered By: BONG Pavon on 10-08-2023 AST [Catalytic activity/Vol] 40 U/L 13-39 [facility] Automated erythrocytes count in urine sediment (number/area)Ordered By: BONG Pavon on 10-08-2023 RBC Auto (Urine sed) [#/Area] 5-9 [HPF] 0-4 [facility] Automated leukocytes count i n urine sediment (number/area)Ordered By: BONG Pavon on 10-08-2023 WBC Auto (Urine sed) [#/Area] 3-4 [HPF] 0-4 [facility] Automated urine hyaline cast s count (number/volume)Ordered By: BONG Pavon on 10-08-2023 Hyaline casts Auto (U) [#/Vol] None seen [LPF] 0-1 [facility] Bilirubin Test strip Ql (U)O rdered By: BONG Pavon on 10-08-2023 Bilirubin Ql (U) 1+ Negative [facility] Bilirubin.total [Mass/volume ] in Serum or PlasmaOrdered By: BONG Pavon on 10-08-2023 Bilirubin [Mass/Vol] 0.6 mg/dL 0.3-1.[address] [facility] [address] abdomen pelvis w conon CT abdomen pelvis w con [facility] Main [place] [address] [place] [address] CT Scan Report Signed Patient: Rachel Mcgarry MR#: [id number] 1 : 1980 Acct:[id number] Age/Sex: 43 / F ADM Date: 10/07/23 Loc: Room: [address] [place] [address] Type: ADM IN Attending Dr: Beltran Pavon MD Copies to: BONG Motley Ordering Provider: BONG Motley Date of Service: 10/08/23 CT/CT abdomen pelvis w con: Abdominal pain/distended abdomen CT abdomen and pelvis with contrast CLINICAL DATA: Abdominal pain, distention and vomiting. Recent hysterectomy. COMPARISON: 10/07/[address] [facility]. No report is available at this time. Spiral images were obtained through the abdomen pelvis following 80 mL Isovue-300. This CT exam was performed using one or more following dose reduction techniques: Automated exposure control, adjustment of the mA and/or kV according to patient size, or use of iterative reconstruction technique. Limited cuts through the lung bases show increasing atelectasis. There is fatty infiltration of the liver. The gallbladder is surgically absent and that may be the etiology of common duct prominence. There are no common duct stones. Calcified splenic granulomas are seen. The pancreas and adrenal glands show no acute findings. There are symmetric renal nephrograms, without hydronephrosis. There is mild atherosclerotic plaque at the aorta and iliac arteries. There are a few tiny lymph nodes. No ascites or free air is seen. There is mild air and stool within the colon. There is a borderline caliber small bowel loop on the left which contains fluid. The remaining small bowel loops are not distended. A tiny umbilical hernia is present containing fat. The bony structures are intact. Images through the pelvis show some additional fluid containing small bowel loops which are not disproportionately distended and there is continued apparent slight wall thickening. There is air and fluid at the distal colon. No diverticular disease is seen. The uterus and appendix are surgically absent. There are no dominant adnexal cysts. There is no significant ascites or evidence of pelvic hematoma. The urinary bladder contains a Martinez catheter and a small amount of air that was probably introduced iatrogenically. CT/CT abdomen pelvis w con IMPRESSION: INCREASING BIBASILAR ATELECTASIS. FATTY LIVER. NO BOWEL OR URINARY TRACT OBSTRUCTION. NO PELVIC HEMATOMA OR SIGNIFICANT FREE FLUID. OTHERWISE UNCHANGED CT ABDOMEN AND PELVIS Impression dictated by: Eda Yañez M.D.10/08/2023 12:09 PM Dictation Location: [place] [address] Transcribed By: [facility] 10/08/23 1209 Dictated By: Eda Yañez MD 10/08/23 1142 Signed By: 10/08/23 1209 Normal [facility] Casts typing in urine sedime nt by light microscopyOrdered By: BONG Pavon on 10-08-2023 Casts LM Nom (Urine sed) None seen [LPF] None Seen [facility] Color Auto (U)Ordered By: MD ALMA Pavon on 10-08-2023 Color (U) [place] Yellow [facility] Complete Blood Count Auto Di ffon 10-08-2023 Basophils (Bld) [#/Vol] 0.1 10*3/uL Normal 0.0-0.2 [facility] Comment on above: Result Comment: PERF ORMED BY: [facility] [address] [place] [address] PATHOLOGIST OIL TRUCK DRIVER RIDGE HUERTA M.D. Performed By: #### G LULS #### Point of Care testing , Basophils/100 WBC (Bld) 0.5 % Normal . [facility] Comment on above: Performed By: #### G LULS #### Point of Care testing , Eosinophils (Bld) [#/Vol] 0.2 10*3/uL Normal 0.0-0.45 [facility] Comment on above: Performed By: #### G EDUARDO #### Point of Care testing , Eosinophils/100 WBC (Bld) 1.3 % Normal . [facility] Comment on above: Performed By: #### G EDUARDO #### Point of Care testing , Erythrocyte distribution width (RBC) [Ratio] 13.2 % Normal 11.9-15.3 [facility] Comment on above: Performed By: #### G GOYOLS #### Point of Care testing , Hematocrit (Bld) [Volume fraction] 35.9 % Normal 34.0-46.4 [facility] Comment on above: Performed By: #### G EDUARDO #### Point of Care testing , Hemoglobin (Bld) [Mass/Vol] 12.1 g/dL Normal 11.8-15.4 [facility] Comment on above: Performed By: #### Michael CLARK #### Point of Care testing , Lymphocytes (Bld) [#/Vol] 3.0 10*3/uL Normal 1.00-4.8 [facility] Comment on above: Performed By: #### G EDUARDO #### Point of Care testing , Lymphocytes/100 WBC (Bld) 16.8 % Normal . [facility] Comment on above: Performed By: #### G EDUARDO #### Point of Care testing , MCH (RBC) [Entitic mass] 29.7 pg Normal 24.7-34.3 [facility] Comment on above: Performed By: #### G EDUARDO #### Point of Care testing , MCV (RBC) [Entitic vol] 88.3 fL Normal 80-100 [facility] Comment on above: Performed By: #### G EDUARDO #### Point of Care testing , Mean Corpuscular HGB Conc 33.6 g/dL Normal 32.0-35.0 [facility] Comment on above: Performed By: #### Michael CLARK #### Point of Care testing , Monocytes (Bld) [#/Vol] 1.5 10*3/uL High 0.0-0.8 [facility] Comment on above: Performed By: #### G EDUARDO #### Point of Care testing , Monocytes/100 WBC (Bld) 8.4 % Normal . [facility] Comment on above: Performed By: #### G EDUARDO #### Point of Care testing , Neutrophils (Bld) [#/Vol] 12.9 10*3/uL High 1.8-7.7 [facility] Comment on above: Performed By: #### G EDUARDO #### Point of Care testing , Neutrophils/100 WBC (Bld) 73.0 % Normal . [facility] Comment on above: Performed By: #### G EDUARDO #### Point of Care testing , NRBC% 0.1 /100{WBC} Normal 0-0.5 [facility] Comment on above: Performed By: #### G EDUARDO #### Point of Care testing , Platelet mean volume (Bld) [Entitic vol] 7.9 fL Normal 6.3-10.7 [facility] Comment on above: Performed By: #### G EDUARDO #### Point of Care testing , Platelets (Bld) [#/Vol] 274 10*3/uL Normal 150-450 [facility] Comment on above: Performed By: #### G EDUARDO #### Point of Care testing , RBC (Bld) [#/Vol] 4.06 10*6/uL Normal 3.60-5.00 [facility] Comment on above: Performed By: #### G EDUARDO #### Point of Care testing , WBC (Bld) [#/Vol] 17.6 10*3/uL High 3.8-11.6 [facility] Comment on above: Performed By: #### G EDUARDO #### Point of Care testing , Comprehensive Metabolic Pane mark 10-08-2023 Albumin [Mass/Vol] 3.7 g/dL Normal 3.5-5.7 [facility] Comment on above: Performed By: #### C MP #### [address] Albumin/Globulin [Mass ratio] 1.4 {ratio} Normal [facility] Comment on above: Performed By: #### C MP #### [address] ALP [Catalytic activity/Vol] 61 U/L Normal 34-104 [facility] Comment on above: Performed By: #### C MP #### [address] ALT [Catalytic activity/Vol] 31 U/L Normal 7-52 [facility] Comment on above: Performed By: #### C MP #### [address] Anion gap [Moles/Vol] 14.8 mmol/L Normal 6.0-15.0 [facility] Comment on above: Performed By: #### C MP #### [address] AST [Catalytic activity/Vol] 40 U/L High 13-39 [facility] Comment on above: Performed By: #### C MP #### [address] Bilirubin [Mass/Vol] 0.6 mg/dL Normal 0.3-1.0 [facility] Comment on above: Performed By: #### C MP #### [address] Calcium [Mass/Vol] 7.8 mg/dL Low 8.6-10.3 [facility] Comment on above: Performed By: #### C MP #### [address] Chloride [Moles/Vol] 104 mmol/L Normal 98-107 [facility] Comment on above: Performed By: #### C MP #### [address] CO2 [Moles/Vol] 20.2 mmol/L Low 21.0-31.0 [facility] Comment on above: Performed By: #### C MP #### [facility] [address] Creatinine [Mass/Vol] 0.58 mg/dL Low 0.60-1.20 [facility] Comment on above: Performed By: #### C MP #### [address] Creatinine Clr Calc Pharmacy 126.74 Normal [facility] Comment on above: Result Comment: PERF ORMED BY: [place] [address] PATHOLOGIST OIL TRUCK DRIVER RIDGE HUERTA M.D. Performed By: #### C MP #### [address] GFR/1.73 sq M.predicted MDRD (S/P/Bld) [Vol rate/Area] mL/min/{1.73_m2} Normal [facility] Comment on above: Performed By: #### C MP #### [address] Globulin (S) [Mass/Vol] 2.6 g/dL Normal [facility] Comment on above: Performed By: #### C MP #### [address] Glucose [Mass/Vol] 155 mg/dL High 70-100 [facility] Comment on above: Result Comment: [facility] Glucose Reference Range is dependent on time and content of last meal. Glucose of more than 200 mg/dL in a nonstressed, ambulatory subject supports the diagnosis of Diabetes Mellitus. ADA recommended reference range Performed By: #### C MP #### [address] Potassium [Moles/Vol] 4.0 mmol/L Normal 3.5-5.1 [facility] Comment on above: Performed By: #### C MP #### [address] Protein [Mass/Vol] 6.3 g/dL Low 6.4-8.9 [facility] Comment on above: Performed By: #### C MP #### [facility] [address] [place] [id number] [facility] Sodium [Moles/Vol] 135 mmol/L Low 136-145 [facility] Comment on above: Performed By: #### C MP #### [facility] [address] [place] [id number] [facility] Urea nitrogen [Mass/Vol] 10 mg/dL Normal 7-25 [facility] Comment on above: Performed By: #### C MP #### [facility] [address] Albumin [Mass/Vol] 3.7 g/dL Normal 3.5-5.7 [facility] Comment on above: Performed By: #### L HOLA CMP ####[place] [id number] [facility] Albumin/Globulin [Mass ratio] 1.5 {ratio} Normal [facility] Comment on above: Performed By: #### L ARUNA SIMENTAL ####[place] [id number] [facility] ALP [Catalytic activity/Vol] 62 U/L Normal 34-104 [facility] Comment on above: Performed By: #### L ARUNA SIMENTAL ####[address] [facility] ALT [Catalytic activity/Vol] 34 U/L Normal 7-52 [facility] Comment on above: Performed By: #### L HOLA CMP ####[facility] [place] [address] [facility] Anion gap [Moles/Vol] 14.3 mmol/L Normal 6.0-15.0 [facility] Comment on above: Performed By: #### L HOLA CMP ####[address] [facility] AST [Catalytic activity/Vol] 74 U/L High 13-39 [facility] Comment on above: Performed By: #### L HOLA CMP ####[place] [id number] [facility] Bilirubin [Mass/Vol] 0.5 mg/dL Normal 0.3-1.0 [facility] Comment on above: Performed By: #### L HOLA, CMP ####[place] [id number] [facility] Calcium [Mass/Vol] 7.9 mg/dL Low 8.6-10.3 [facility] Comment on above: Performed By: #### L HOLA, CMP ####[place] [id number] [facility] Chloride [Moles/Vol] 102 mmol/L Normal 98-107 [facility] Comment on above: Performed By: #### L HOLA CMP ####[address] CO2 [Moles/Vol] 21.0 mmol/L Normal 21.0-31.0 [facility] Comment on above: Performed By: #### L HOLA, CMP ####[place] [id number] [facility] Creatinine [Mass/Vol] 0.56 mg/dL Low 0.60-1.20 [facility] Comment on above: Performed By: #### L HOLA CMP ####[place] [id number] [facility] Creatinine Clr Calc Pharmacy 131.27 [facility] Comment on above: Result Comment: PERF ORMED BY: [facility] [address] [place] [id number] PATHOLOGIST OIL TRUCK DRIVER RIDGE HUERTA M.D. Performed By: #### L HOLA, CMP ####[place] [id number] [facility] GFR/1.73 sq M.predicted MDRD (S/P/Bld) [Vol rate/Area] mL/min/{1.73_m2} [facility] Comment on above: Performed By: #### L HOLA, CMP ####[place] [id number] [facility] Globulin (S) [Mass/Vol] 2.4 g/dL Normal [facility] Comment on above: Performed By: #### L ACTPATO, CMP ####[facility] [place] [id number] [facility] Glucose [Mass/Vol] 208 mg/dL High 70-100 [facility] Comment on above: Result Comment: [facility] Glucose Reference Range is dependent on time and content of last meal. Glucose of more than 200 mg/dL in a nonstressed, ambulatory subject supports the diagnosis of Diabetes Mellitus. ADA recommended reference range Performed By: #### L HOLA, CMP ####[place] [id number] [place] [address] [facility] Potassium [Moles/Vol] 4.3 mmol/L Normal 3.5-5.1 [facility] Comment on above: Performed By: #### L HOLA, CMP ####[place] [id number] [facility] Protein [Mass/Vol] 6.1 g/dL Low 6.4-8.9 [facility] Comment on above: Performed By: #### L MACKIC, CMP ####[place] [id number] [facility] Sodium [Moles/Vol] 133 mmol/L Low 136-145 [facility] Comment on above: Performed By: #### L ACTPATO, CMP ####[place] [id number] [facility] Urea nitrogen [Mass/Vol] 9 mg/dL Normal 7-25 [facility] Comment on above: Performed By: #### L ACTIC, CMP ####[place] [id number] [place] [address] [place] Dipstick and Microscopicon 0 10-08-2023 Appearance (U) Turbid Critically abnormal Clear [facility] Comment on above: Order Comment: Name Collection Type:: Martinez Catheter Performed By: #### U HCG #### [facility] [address] [place] [id number] [place] Bacteria,Urine None Seen Normal None Seen [facility] Comment on above: Order Comment: Name Collection Type:: Martinez Catheter Performed By: #### U HCG #### [facility] [address] [place] [address] [place] Bilirubin,Urine 1+ High Negative [facility] Comment on above: Order Comment: Name Collection Type:: Martinez Catheter Performed By: #### U HCG #### [facility] [address] [place] [address] [place] Color (U) [place] Critically abnormal Yellow [facility] Comment on above: Order Comment: Name Collection Type:: Martinez Catheter Performed By: #### U HCG #### [facility] [address] [place] [address] [place] Glucose Ql (U) 250 mg/dL High Normal [facility] Comment on above: Order Comment: Name Collection Type:: Martinez Catheter Performed By: #### U HCG #### [facility] [address] [place] [address] [place] Hyaline Casts,Urine None Seen Normal 0-1 [facility] Comment on above: Order Comment: Name Collection Type:: Martinez Catheter Performed By: #### U HCG #### [facility] [address] [place] [address] [place] Ketones Ql (U) Trace High Negative [facility] Comment on above: Order Comment: Name Collection Type:: Martinez Catheter Performed By: #### U HCG #### [facility] [address] [place] [address] [place] Leukocyte esterase Test strip Ql (U) Negative Normal Negative [facility] Comment on above: Order Comment: Name Collection Type:: Martinez Catheter Performed By: #### U HCG #### [facility] [address] [place] [address] [place] Nitrite,Urine Negative Normal Negative [facility] Comment on above: Order Comment: Name Collection Type:: Martinez Catheter Performed By: #### U HCG #### [facility] [address] [place] [address] [place] Occult Blood,Urine Negative Normal Negative [facility] Comment on above: Order Comment: Name Collection Type:: Martinez Catheter Result Comment: PERF ORMED BY: [address] [place] [address] PATHOLOGIST OIL TRUCK DRIVER RIDGE HUERTA M.D. Performed By: #### U HCG #### [address] Other Casts,Urine None Seen Normal None Seen [facility] Comment on above: Order Comment: Name Collection Type:: Martinez Catheter Result Comment: PERF ORMED BY: [place] [address] PATHOLOGIST OIL TRUCK DRIVER RIDGE HUERTA M.D. Performed By: #### U HCG #### [facility] [address] [place] [address] pH (U) 5.5 [pH] Normal 5.0-9.0 [facility] Comment on above: Order Comment: Name Collection Type:: Martinez Catheter Performed By: #### U HCG #### [address] Protein (U) [Mass/Vol] 30 mg/dL High Negative [facility] Comment on above: Order Comment: Name Collection Type:: Martinez Catheter Performed By: #### U HCG #### [facility] [address] [place] [address] RBC,Urine 5-9 High 0-4 [facility] Comment on above: Order Comment: Name Collection Type:: Martinez Catheter Performed By: #### U HCG #### [facility] [address] [place] [address] Specificy [place],Urine > 1.050 High 1.00 1-1.03 0 [facility] Comment on above: Order Comment: Name Collection Type:: Martinez Catheter Performed By: #### U HCG #### [facility] [address] [place] [address] [place] Squamous Epithelial Cell,Urine 5-9 High 0-2 [facility] Comment on above: Order Comment: Name Collection Type:: Martinez Catheter Performed By: #### U HCG #### [address] Urobilinogen,Urine Normal Normal Normal [facility] Comment on above: Order Comment: Name Collection Type:: Martinez Catheter Performed By: #### U HCG #### [facility] [address] WBC,Urine 3-4 Normal 0-4 [facility] Comment on above: Order Comment: Name Collection Type:: Martinez Catheter Performed By: #### U HCG #### [facility] [address] Globulin Calc (S) [Mass/Vol] Ordered By: BONG Pavon on 10-08-2023 Globulin (S) [Mass/Vol] 2.6 g/dL F [facility] Glucose Poct Glucometerson 0 10-08-2023 Commemt1 Glu2: Cleaned Meter [facility] Comment on above: Result Comment: PERF ORMED BY: [place] [address] PATHOLOGIST OIL TRUCK DRIVER RIDGE HUERTA M.D. Performed By: #### G LULS ####Point of Care testing, Glucose [Mass/Vol] 265 mg/dL Normal [facility] Comment on above: Result Comment: [facility] Glucose Reference Range is dependent on time and content of last meal. Glucose of more than 200 mg/dL in a nonstressed, ambulatory subject supports the diagnosis of Diabetes Mellitus. Performed By: #### G LULS ####Point of Care testing, Commemt1 Glu2: Cleaned Meter [facility] Comment on above: Result Comment: PERF ORMED BY: [place] [address] PATHOLOGIST OIL TRUCK DRIVER RIDGE HUERTA M.D. Performed By: #### G LULS #### Point of Care testing , Glucose [Mass/Vol] 166 mg/dL Normal [facility] Comment on above: Result Comment: [facility] Glucose Reference Range is dependent on time and content of last meal. Glucose of more than 200 mg/dL in a nonstressed, ambulatory subject supports the diagnosis of Diabetes Mellitus. Performed By: #### G LULS #### Point of Care testing , Glucose [Mass/Vol] 168 mg/dL Normal [facility] Comment on above: Result Comment: [facility] Glucose Reference Range is dependent on time and content of last meal. Glucose of more than 200 mg/dL in a nonstressed, ambulatory subject supports the diagnosis of Diabetes Mellitus. PERFORMED BY: [facility] [address] [place] [id number] PATHOLOGIST OIL TRUCK DRIVER RIDGE HUERTA M.D. Performed By: #### G EDUARDO #### Point of Care testing , Ketones Auto test strip (U) [Mass/Vol]Ordered By: BONG Pavon on 10-08-2023 Ketones (U) [Mass/Vol] Trace Negative [facility] Lactate [Moles/volume] in Se rum or PlasmaOrdered By: BONG Pavon on 10-08-2023 Lactate [Moles/Vol] 1.9 mmol/L 0.5-2.2 [facility] Lactic Acidon 10-08-2023 Lactate [Moles/Vol] 2.0 mmol/L Off scale high 0.5-2.2 [facility] Comment on above: Result Comment: Crit ical Result : Called to and read back by: BERT NAJERA at: 10/08/2023 07:31:51 by:[id number] PERFORMED BY: [facility] [address] [place] [address] PATHOLOGIST OIL TRUCK DRIVER RIDGE HUERTA M.D. Performed By: #### L HOLA ####[facility] [place] [address] [facility] Lactate [Moles/Vol] 2.6 mmol/L Off scale high 0.5-2.2 [facility] Comment on above: Result Comment: Crit ical Result : Called to and read back by: CLARISSA PATEL at: 10/08/2023 00:48:06 by:HENRY PERFORMED BY: [facility] [address] [place] [address] PATHOLOGIST OIL TRUCK DRIVER RIDGE HUERTA M.D. Performed By: #### L ACTIC, CMP ####[facility] [id number] [place] [address] [facility] Lactic Acid Reflexon 024 Lactic Acid Reflex 1.9 mmol/L Normal 0.5-2.2 [facility] Comment on above: Result Comment: PERF ORMED BY: [facility] [address] [place] [id number] PATHOLOGIST OIL TRUCK DRIVER RIDGE HUERTA M.D. Performed By: #### L ACTIC RFX ####[facility] Qfx[address] [place] [address] [facility] Nitrite Test strip Ql (U)Ord ered By: BONG Pavon on 10-08-2023 Nitrite Ql (U) Negative Negative [facility] Protein Auto test strip (U) [Mass/Vol]Ordered By: BONG Pavon on 10-08-2023 Protein (U) [Mass/Vol] 30 mg/dL Negative [facility] Protein [Mass/volume] in Ser um or PlasmaOrdered By: BONG Pavon on 10-08-2023 Protein [Mass/Vol] 6.3 g/dL 6.4-8.9 [facility] Serum or plasma albumin/glob ulin mass ratioOrdered By: BONG Pavon on 10-08-2023 Albumin/Globulin [Mass ratio] 1.4 {ratio} [facility] Specific gravity Auto test s trip (U) [Rel density]Ordered By: BONG Pavon on 10-08-2023 Specific gravity (U) [Rel density] > 1.050 1.001-1.03 0 [facility] Squamous epithelial cells de tection in urine sediment by light microscopyOrdered By: BONG Pavon on 10-08-2023 Epithelial cells.squamous LM Ql (Urine sed) 5-9 [HPF] 0-2 [facility] Urine bacteria detection by automated methodOrdered By: BONG Pavon on 10-08-2023 Bacteria Auto Ql (U) None seen None Seen [facility] Urine clarity by refractomet ry automatedOrdered By: BONG Pavon on 10-08-2023 Clarity Refractometry automated (U) Turbid Clear [facility] Urine glucose measurement by automated test strip (mass/volume)Ordered By: ARIELLE Pavon on 10-08-2023 Glucose Auto test strip (U) [Mass/Vol] 250 mg/dL Normal [facility] Urine hemoglobin detection b y automated test stripOrdered By: BONG Pvaon on 10-08-2023 Hemoglobin Auto test strip Ql (U) Negative Negative [facility] Urine leukocyte esterase det ection by automated test stripOrdered By: BONG Pavon on 10-08-2023 Leukocyte esterase Auto test strip Ql (U) Negative Negative [facility] Urobilinogen Auto test strip (U) [Mass/Vol]Ordered By: BONG Pavon on 10-08-2023 Urobilinogen (U) [Mass/Vol] Normal mg/dL Normal [facility] pH Auto test strip (U)Ordere d By: BONG Pavon on 10-08-2023 pH (U) 5.5 [pH] 5.0-9.0 [facility] Glucose Glucometer (BldC) [M ass/Vol]Ordered By: Marty Hinds on 09-28-2023 Glucose [Mass/Vol] 196 mg/dL [facility] Comment on above: Random Glucose Refer ence Range is dependent on time and content of last meal. Glucose of more than 200 mg/dL in a nonstressed, ambulatory subject supports the diagnosis of Diabetes Mellitus. Glucose Poct Glucometerson 1 11-29-2022 Glucose [Mass/Vol] 196 mg/dL Normal [facility] Comment on above: Result Comment: [facility] Glucose Reference Range is dependent on time and content of last meal. Glucose of more than 200 mg/dL in a nonstressed, ambulatory subject supports the diagnosis of Diabetes Mellitus. PERFORMED BY: [facility] [place] [address] PATHOLOGIST OIL TRUCK DRIVER RIDGE HUERTA M.D. Performed By: #### G LULS ####Point of Care testing, Commemt1 Glu2: Cleaned Meter Normal [facility] Comment on above: Result Comment: PERF ORMED BY: [place] [address] PATHOLOGIST OIL TRUCK DRIVER RIDGE HUERTA M.D. Performed By: #### G LULS #### Point of Care testing , Glucose [Mass/Vol] 153 mg/dL Normal [facility] Comment on above: Result Comment: [facility] Glucose Reference Range is dependent on time and content of last meal. Glucose of more than 200 mg/dL in a nonstressed, ambulatory subject supports the diagnosis of Diabetes Mellitus. Performed By: #### G LULS #### Point of Care testing , HCG ( test) IAanil jackson Ql (U)Ordered By: Mic Álvarez on 09-28-2023 HCG ( test) Ql (U) Negative [facility] HCG,Urineon 09-28-2023 Beta HCG ( test) Ql (U) Negative Normal [facility] Comment on above: Result Comment: PERF ORMED BY: [place] [address] PATHOLOGIST OIL TRUCK DRIVER RIDGE HUERTA M.D. Performed By: #### U HCG #### [address] Mark 09-28-2023 L ------- Specimen: [id number] Received: 09/28/23 Status: BLUE Neal Num: [id number] Spec Type: Surgical Subm Dr: Marty Hinds DO Tissues: A Uterus w/ or w/o tubes ovaries except neoplastic or prolap (CERVIX, MIGUELINA TU Procedures: , Gross/Micro L5 Age/ Patient Sex Location Account Attending Physician Rachel Mcgarry 43/F [place] [id number] Marty Hinds DO SPEC NUM: [id number] RECD: 09/28/23 STATUS: BLUE NEAL NUM: [id number] JOSEPH: 09/28/23 [facility] DR: Marty Hinds DO ENTERED: 09/28/[address] [facility] [address]: HALLEY TYPE: Surgical DEPT: S ORDERED: HE/, Gross/Micro [...] an unremarkable, pinpoint lumen on cut section. Agency Cashier sections are submitted in 6 cassettes as follows: A1 - Anterior cervix A2 - Posterior cervix A3 - Anterior endomyometrium Specimen: [id number] Received: 09/28/23 Status: BLUE Neal Num: [id number] Spec Type: Surgical Subm Dr: Marty Hinds DO Tissues: A Uterus w/ or w/o tubes ovaries except neoplastic or prolap (CERVIX, MIGUELINA TU Procedures: , Gross/Micro L5 Patient: Rachel Mcgarry [id number] (Continued) Specimen: [id number] Received: 09/28/23 (Continued) Gross Description (Continued) Signed (signature on file) Nikkie Munguia MD 09/29/23 2213 Specimen: [id number] Received: 09/28/23 Status: BLUE Britoeduarda Num: [id number] Spec Type: Surgical Subm Dr: Marty Hinds, Tissues: A Uterus w/ or w/o tubes ovaries except neoplastic or prolap (CERVIX, MIGUELINA TU Procedures: , Gross/Micro L5 Patient: Rachel Mcgarry [id number] (Continued) Specimen: [id number] Received: 09/28/23 (Continued) Gross Description (Continued) A4 - Posterior endomyometrium A5 - Right fallopian tube A6 - Left fallopian tube Microscopic Description Six H E slides reviewed. The microscopic examination confirms the diagnosis. CPT Codes 09926 Specimen: [id number] Received: 09/28/23 Status: BLUE Neal Num: [id number] Spec Type: Surgical Subm Dr: Marty Hinds DO Tissues: A Uterus w/ or w/o tubes ovaries except neoplastic or prolap (CERVIX, MIGUELINA TU Procedures: , Gross/Micro L5 Patient: Rachel Mgcarry [id number] (Continued) Signed (signature on file) Nikkie Munguia MD 09/29/23 2213 [facility] No Panel InformationOrdered By: Marty Hinds on 09-28-2023 Bedside Glucose Comment Glu2: cleaned meter [facility] Basic Metabolic Panelon 09-03 Anion gap [Moles/Vol] 14.5 mmol/L Normal 6.0-15.0 [facility] Comment on above: Performed By: #### C MP #### [facility] [address] Calcium [Mass/Vol] 9.3 mg/dL Normal 8.6-10.3 [facility] Comment on above: Result Comment: PERF ORMED BY: [place] [address] PATHOLOGIST OIL TRUCK DRIVER RIDGE HUERTA M.D. Performed By: #### C MP #### [facility] [address] [place] [address] [place] Chloride [Moles/Vol] 99 mmol/L Normal 98-107 [facility] Comment on above: Performed By: #### C MP #### [facility] [address] [place] [address] [place] CO2 [Moles/Vol] 25.5 mmol/L Normal 21.0-31.0 [facility] Comment on above: Performed By: #### C MP #### [facility] [address] [place] [address] [place] Creatinine [Mass/Vol] 0.68 mg/dL Normal 0.60-1.20 [facility] Comment on above: Performed By: #### C MP #### [facility] [address] [place] [address] [place] GFR/1.73 sq M.predicted MDRD (S/P/Bld) [Vol rate/Area] mL/min/{1.73_m2} [facility] Comment on above: Performed By: #### C MP #### [facility] [address] [place] [address] [place] Glucose [Mass/Vol] 355 mg/dL High 70-100 [facility] Comment on above: Result Comment: [facility] Glucose Reference Range is dependent on time and content of last meal. Glucose of more than 200 mg/dL in a nonstressed, ambulatory subject supports the diagnosis of Diabetes Mellitus. ADA recommended reference range Performed By: #### C MP #### [facility] [address] Potassium [Moles/Vol] 5.0 mmol/L Normal 3.5-5.1 [facility] Comment on above: Performed By: #### C MP #### [facility] [address] Sodium [Moles/Vol] 134 mmol/L Low 136-145 [facility] Comment on above: Performed By: #### C MP #### [facility] [address] Urea nitrogen [Mass/Vol] 13 mg/dL Normal 7-25 [facility] Comment on above: Performed By: #### C MP #### [facility] [address] Basophils Auto (Bld) [#/Vol] Ordered By: Marty Hinds on 09-16-2023 Basophils (Bld) [#/Vol] 0.1 10*3/uL 0.0-0.2 [facility] Basophils/100 WBC Auto (Bld) Ordered By: Marty Hinds on 09-16-2023 Basophils/100 WBC (Bld) 0.6 % . [facility] Calcium [Mass/volume] in Ser um or PlasmaOrdered By: Marty Hinds on 09-16-2023 Calcium [Mass/Vol] 9.3 mg/dL 8.6-10.3 [facility] Carbon dioxide, total [Moles /volume] in Serum or PlasmaOrdered By: Marty Hinds on 09-16-2023 CO2 [Moles/Vol] 25.5 mmol/L 21.0-31.0 [facility] Chloride [Moles/volume] in S alissa or PlasmaOrdered By: Marty Hinds on 09-16-2023 Chloride [Moles/Vol] 99 mmol/L 98-107 [facility] Complete Blood Count Auto Di ffon 09-16-2023 Basophils (Bld) [#/Vol] 0.1 10*3/uL Normal 0.0-0.2 [facility] Comment on above: Result Comment: PERF ORMED BY: [place] [address] PATHOLOGIST OIL TRUCK DRIVER RIDGE HUERTA M.D. Performed By: #### C MP #### [address] Basophils/100 WBC (Bld) 0.6 % Normal . [facility] Comment on above: Performed By: #### C MP #### [address] Eosinophils (Bld) [#/Vol] 0.1 10*3/uL Normal 0.0-0.45 [facility] Comment on above: Performed By: #### C MP #### [address] Eosinophils/100 WBC (Bld) 0.5 % Normal . [facility] Comment on above: Performed By: #### C MP #### [address] Erythrocyte distribution width (RBC) [Ratio] 13.3 % Normal 11.9-15.3 [facility] Comment on above: Performed By: #### C MP #### [address] Hematocrit (Bld) [Volume fraction] 38.3 % Normal 34.0-46.4 [facility] Comment on above: Performed By: #### C MP #### [place] [address] [place] Hemoglobin (Bld) [Mass/Vol] 12.8 g/dL Normal 11.8-15.4 [facility] Comment on above: Performed By: #### C MP #### [address] Lymphocytes (Bld) [#/Vol] 3.1 10*3/uL Normal 1.00-4.8 [facility] Comment on above: Performed By: #### C MP #### [place] [address] [place] Lymphocytes/100 WBC (Bld) 24.9 % Normal . [facility] Comment on above: Performed By: #### C MP #### [address] MCH (RBC) [Entitic mass] 29.7 pg Normal 24.7-34.3 [facility] Comment on above: Performed By: #### C MP #### [address] MCV (RBC) [Entitic vol] 88.8 fL Normal 80-100 [facility] Comment on above: Performed By: #### C MP #### [address] Mean Corpuscular HGB Conc 33.5 g/dL Normal 32.0-35.0 [facility] Comment on above: Performed By: #### C MP #### [place] [address] [place] Monocytes (Bld) [#/Vol] 0.9 10*3/uL High 0.0-0.8 [facility] Comment on above: Performed By: #### C MP #### [address] Monocytes/100 WBC (Bld) 7.5 % Normal . [facility] Comment on above: Performed By: #### C MP #### [address] Neutrophils (Bld) [#/Vol] 8.3 10*3/uL High 1.8-7.7 [facility] Comment on above: Performed By: #### C MP #### [address] Neutrophils/100 WBC (Bld) 66.5 % Normal . [facility] Comment on above: Performed By: #### C MP #### [address] [address] [place] NRBC% 0.1 /100{WBC} Normal 0-0.5 [facility] Comment on above: Performed By: #### C MP #### [address] Platelet mean volume (Bld) [Entitic vol] 8.2 fL Normal 6.3-10.7 [facility] Comment on above: Performed By: #### C MP #### [facility] [address] [place] [address] Platelets (Bld) [#/Vol] 305 10*3/uL Normal 150-450 [facility] Comment on above: Performed By: #### C MP #### [address] RBC (Bld) [#/Vol] 4.31 10*6/uL Normal 3.60-5.00 [facility] Comment on above: Performed By: #### C MP #### [address] WBC (Bld) [#/Vol] 12.5 10*3/uL High 3.8-11.6 [facility] Comment on above: Performed By: #### C MP #### [address] Creatinine [Mass/volume] in Serum or PlasmaOrdered By: Marty Hinds on 09-16-2023 Creatinine [Mass/Vol] 0.68 mg/dL 0.60-1.20 [facility] Eosinophils Auto (Bld) [#/Vo l]Ordered By: Marty Hinds on 09-16-2023 Eosinophils (Bld) [#/Vol] 0.1 10*3/uL 0.0-0.45 [facility] Eosinophils/100 WBC Auto (Bl d)Ordered By: Marty Hinds on 09-16-2023 Eosinophils/100 WBC (Bld) 0.5 % . [facility] Erythrocyte distribution wid th Auto (RBC) [Ratio]Ordered By: Marty Hinds on 09-16-2023 Erythrocyte distribution width (RBC) [Ratio] 13.3 % 11.9-15.3 [facility] Glucose [Mass/volume] in Ser um or PlasmaOrdered By: Marty Hinds on 09-16-2023 Glucose [Mass/Vol] 355 mg/dL 70-100 [facility] Comment on above: ADA recommended refe rence rangeRandom Glucose Reference Range is dependent on time and content of last meal. Glucose of more than 200 mg/dL in a nonstressed, ambulatory subject supports the diagnosis of Diabetes Mellitus. Hematocrit Auto (Bld) [Volum e fraction]Ordered By: Marty Hinds on 09-16-2023 Hematocrit (Bld) [Volume fraction] 38.3 % 34.0-46.4 [facility] Hemoglobin [Mass/volume] in BloodOrdered By: Marty Hinds on 09-16-2023 Hemoglobin (Bld) [Mass/Vol] 12.8 g/dL 11.8-15.4 [facility] Leukocytes [#/volume] correc cherie for nucleated erythrocytes in Blood by Automated counOrdered By: Matry Hinds on 09-16-2023 WBC corrected for nucl RBC Auto (Bld) [#/Vol] 12.5 10*3/uL 3.8-11.6 [facility] Lymphocytes Auto (Bld) [#/Vo l]Ordered By: Marty Hinds on 09-16-2023 Lymphocytes (Bld) [#/Vol] 3.1 10*3/uL 1.00-4.8 [facility] Lymphocytes/100 WBC Auto (Bl d)Ordered By: Marty Hinds on 09-16-2023 Lymphocytes/100 WBC (Bld) 24.9 % . [facility] MCH Auto (RBC) [Entitic mass ]Ordered By: Marty Hinds on 09-16-2023 MCH (RBC) [Entitic mass] 29.7 pg 24.7-34.3 [facility] MCHC Auto (RBC) [Mass/Vol]Or dered By: Marty Hinds on 09-16-2023 MCHC (RBC) [Mass/Vol] 33.5 g/dL 32.0-35.0 [facility] MCV Auto (RBC) [Entitic vol] Ordered By: Marty Hinds on 09-16-2023 MCV (RBC) [Entitic vol] 88.8 fL 80-100 [facility] Monocytes Auto (Bld) [#/Vol] Ordered By: Marty Hinds on 09-16-2023 Monocytes (Bld) [#/Vol] 0.9 10*3/uL 0.0-0.8 [facility] Monocytes/100 WBC Auto (Bld) Ordered By: Marty Hinds on 09-16-2023 Monocytes/100 WBC (Bld) 7.5 % . [facility] Neutrophils Auto (Bld) [#/Vo l]Ordered By: Marty Hinds on 09-16-2023 Neutrophils (Bld) [#/Vol] 8.3 10*3/uL 1.8-7.7 [facility] Neutrophils/100 WBC Auto (Bl d)Ordered By: Marty Hinds on 09-16-2023 Neutrophils/100 WBC (Bld) 66.5 % . [facility] No Panel InformationOrdered By: Marty Hinds on 09-16-2023 Estimated GFR (CKD-EPI) > 60.0 mL/Min [facility] Creatinine Clearance (Chem N/A [facility] Nucleated erythrocytes [Pres ence] in Blood by Automated countOrdered By: Marty Hinds on 09-16-2023 Nucleated RBC Auto Ql (Bld) 0.1 /100{WBC} 0-0.5 [facility] PST Type and Screenon 2022 ABO and Rh group Nom (Bld) Blood group A Rh(D) positive Normal [facility] Comment on above: Order Comment: Date of Surgery: [id number] Result Comment: PERF ORMED BY: [facility] [address] [place] [address] PATHOLOGIST OIL TRUCK DRIVER RIDGE HUERTA M.D. Platelet mean volume Auto (B ld) [Entitic vol]Ordered By: Marty Hinds on 09-16-2023 Platelet mean volume (Bld) [Entitic vol] 8.2 fL 6.3-10.7 [facility] Platelets Auto (Bld) [#/Vol] Ordered By: Marty Hinds on 09-16-2023 Platelets (Bld) [#/Vol] 305 10*3/uL 150-450 [facility] Potassium [Moles/volume] in Serum or PlasmaOrdered By: Marty Hinds on 09-16-2023 Potassium [Moles/Vol] 5.0 mmol/L 3.5-5.1 [facility] RBC Auto (Bld) [#/Vol]Ordere d By: Marty Hinds on 09-16-2023 RBC (Bld) [#/Vol] 4.31 10*6/uL 3.60-5.00 [facility] Serum or plasma anion gap de terminationOrdered By: Marty Hinds on 09-16-2023 Anion gap [Moles/Vol] 14.5 mmol/L 6.0-15.0 [facility] Sodium [Moles/volume] in Ser um or PlasmaOrdered By: Marty Hinds on 09-16-2023 Sodium [Moles/Vol] 134 mmol/L 136-145 [facility] Urea nitrogen [Mass/volume] in Serum or PlasmaOrdered By: Marty Hinds on 09-16-2023 Urea nitrogen [Mass/Vol] 13 mg/dL 7-25 [facility] WBC Auto (Bld) [#/Vol]Ordere d By: Marty Hinds on 09-16-2023 WBC (Bld) [#/Vol] 12.5 10*3/uL 3.8-11.6 [facility] ABO/Rh Retypeon 07-13-2023 ABO/RH Recheck Result Positive Normal [facility] Comment on above: Result Comment: PERF ORMED BY: [facility] [address] [place] [address] PATHOLOGIST OIL TRUCK DRIVER RIDGE HUERTA M.D. Glucose Glucometer (dC) [M ass/Vol]Ordered By: Marty Hinds on 07-13-2023 Glucose [Mass/Vol] 119 mg/dL [facility] Comment on above: Random Glucose Refer ence Range is dependent on time and content of last meal. Glucose of more than 200 mg/dL in a nonstressed, ambulatory subject supports the diagnosis of Diabetes Mellitus. Glucose Poct Glucometerson 1 Glucose [Mass/Vol] 119 mg/dL Normal [facility] Comment on above: Result Comment: [facility] Glucose Reference Range is dependent on time and content of last meal. Glucose of more than 200 mg/dL in a nonstressed, ambulatory subject supports the diagnosis of Diabetes Mellitus. PERFORMED BY: [address] [place] [address] PATHOLOGIST OIL TRUCK DRIVER RIDGE HUERTA M.D. Performed By: #### G LULS ####Point of Care testing, Commemt1 Glu2: Cleaned Meter Normal [facility] Comment on above: Result Comment: PERF ORMED BY: [place] [address] PATHOLOGIST OIL TRUCK DRIVER RIDGE HUERTA M.D. Performed By: #### G LULS #### Point of Care testing , Glucose [Mass/Vol] 133 mg/dL Normal [facility] Comment on above: Result Comment: [facility] Glucose Reference Range is dependent on time and content of last meal. Glucose of more than 200 mg/dL in a nonstressed, ambulatory subject supports the diagnosis of Diabetes Mellitus. Performed By: #### G LULS #### Point of Care testing , HCG ( test) Funmi jackson Ql (U)Ordered By: Julio Monroe on 07-13-2023 HCG ( test) Ql (U) Negative [facility] HCG,Urineon 07-13-2023 Beta HCG ( test) Ql (U) Negative Normal [facility] Comment on above: Result Comment: PERF ORMED BY: [address] [place] [address] PATHOLOGIST OIL TRUCK DRIVER RIDGE HUERTA M.D. Performed By: #### C MP #### [address] 07-13-2023 L ------- Specimen: [id number] Received: 07/13/23 Status: BOAmeya Neal Num: [id number] Spec Type: Surgical Subm Dr: Marty Hinds DO Tissues: A Endometrium - Curettings (EMC) Procedures: HE/2, Gross/Micro L4 Age/ Patient Sex Location Account Attending Physician Rachel Mcgarry 43/F [place] [id number] Marty Hinds DO SPEC NUM: [id number] RECD: 07/13/23 STATUS: BLUE NEAL NUM: [id number] JOSEPH: 07/13/23- DR: Marty Hinds DO ENTERED: 07/13/[address]: HALLEY TYPE: Surgical DEPT: S ORDERED: HE/2, Gross/Micro [...] submitted in one cassette labeled A1. Specimen: [id number] Received: 07/13/23 Status: BLUE Damon Num: [id number] Spec Type: Surgical Subm Dr: Marty Hinds DO Tissues: A Endometrium - Curettings (EMC) Procedures: HE/2, Gross/Micro L4 Patient: Rachel Mgcarry [id number] (Continued) Specimen: [id number] Received: 07/13/23 (Continued) Signed (signature on file) Philomena Grimm MD 07/14/23 1608 Specimen: [id number] Received: 07/13/23 Status: BLUE Neal Num: [id number] Spec Type: Surgical Subm Dr: Marty Hinds DO Tissues: A Endometrium - Curettings (EMC) Procedures: HE/2, Gross/Micro L4 Patient: Rachel Mcgarry [id number] (Continued) Specimen: [id number] Received: 07/13/23 (Continued) Microscopic Description Two H E slides reviewed. The microscopic examination confirms the diagnosis. CPT Codes 00596 Specimen: [id number] Received: 07/13/23 Status: BLUE Neal Num: [id number] Spec Type: Surgical Subm Dr: Marty Hinds DO Tissues: A Endometrium - Curettings (EMC) Procedures: HE/Vik Yap/Claude L4 Patient: Rachel Mcgarry [id number] (Continued) Signed (signature on file) Philomena Grimm MD 07/14/23 0735 Normal [facility] No Panel InformationOrdered By: Marty Hinds on 07-13-2023 Bedside Glucose Comment Glu2: cleaned meter [facility] Basic Metabolic Panelon 09- Anion gap [Moles/Vol] 14.6 mmol/L Normal 6.0-15.0 [facility] [facility] Comment on above: Performed By: #### C MP #### [facility] [address] Calcium [Mass/Vol] 9.2 mg/dL Normal 8.6-10.3 [facility] Comment on above: Result Comment: PERF ORMED BY: [facility] [address] [place] [address] PATHOLOGIST OIL TRUCK DRIVER RIDGE HUERTA M.D. Performed By: #### C MP #### [facility] [address] Chloride [Moles/Vol] 100 mmol/L Normal 98-107 [facility] Comment on above: Performed By: #### C MP #### [facility] [address] CO2 [Moles/Vol] 26.7 mmol/L Normal 21.0-31.0 [facility] Comment on above: Performed By: #### C MP #### [facility] [address] Creatinine [Mass/Vol] 0.54 mg/dL Low 0.60-1.20 [facility] Comment on above: Performed By: #### C MP #### [facility] [address] [place] [address] [place] GFR/1.73 sq M.predicted MDRD (S/P/Bld) [Vol rate/Area] mL/min/{1.73_m2} Normal [facility] Comment on above: Performed By: #### C MP #### [facility] [address] [place] [address] [place] Glucose [Mass/Vol] 134 mg/dL High 70-100 [facility] Comment on above: Result Comment: [facility] Glucose Reference Range is dependent on time and content of last meal. Glucose of more than 200 mg/dL in a nonstressed, ambulatory subject supports the diagnosis of Diabetes Mellitus. ADA recommended reference range Performed By: #### C MP #### [facility] [address] Potassium [Moles/Vol] 4.3 mmol/L Normal 3.5-5.1 [facility] Comment on above: Performed By: #### C MP #### [facility] [address] Sodium [Moles/Vol] 137 mmol/L Normal 136-145 [facility] Comment on above: Performed By: #### C MP #### [facility] [address] Urea nitrogen [Mass/Vol] 11 mg/dL Normal 7-25 [facility] Comment on above: Performed By: #### C MP #### [facility] [address] Basophils Auto (Bld) [#/Vol] Ordered By: Marty Hinds on 06-30-2023 Basophils (Bld) [#/Vol] 0.1 10*3/uL 0.0-0.2 [facility] Basophils/100 WBC Auto (Bld) Ordered By: Marty Hinds on 06-30-2023 Basophils/100 WBC (Bld) 0.7 % . [facility] Calcium [Mass/volume] in Ser um or PlasmaOrdered By: Marty Hinds on 06-30-2023 Calcium [Mass/Vol] 9.2 mg/dL 8.6-10.3 [facility] Carbon dioxide, total [Moles /volume] in Serum or PlasmaOrdered By: Marty Hinds on 06-30-2023 CO2 [Moles/Vol] 26.7 mmol/L 21.0-31.0 [facility] Chloride [Moles/volume] in S alissa or PlasmaOrdered By: Marty Hinds on 06-30-2023 Chloride [Moles/Vol] 100 mmol/L 98-107 [facility] Complete Blood Count Auto Di ffon 06-30-2023 Basophils (Bld) [#/Vol] 0.1 10*3/uL Normal 0.0-0.2 [facility] Comment on above: Result Comment: PERF ORMED BY: [facility] [place] [address] PATHOLOGIST OIL TRUCK DRIVER RIDGE HUERTA M.D. Performed By: #### G GOYOLS #### Point of Care testing , Basophils/100 WBC (Bld) 0.7 % Normal . [facility] Comment on above: Performed By: #### G LULS #### Point of Care testing , Eosinophils (Bld) [#/Vol] 0.1 10*3/uL Normal 0.0-0.45 [facility] Comment on above: Performed By: #### G LULS #### Point of Care testing , Eosinophils/100 WBC (Bld) 0.4 % Normal . [facility] Comment on above: Performed By: #### G LULS #### Point of Care testing , Erythrocyte distribution width (RBC) [Ratio] 13.3 % Normal 11.9-15.3 [facility] Comment on above: Performed By: #### G LULS #### Point of Care testing , Hematocrit (Bld) [Volume fraction] 38.9 % Normal 34.0-46.4 [facility] Comment on above: Performed By: #### G LULS #### Point of Care testing , Hemoglobin (Bld) [Mass/Vol] 13.0 g/dL Normal 11.8-15.4 [facility] Comment on above: Performed By: #### G LULS #### Point of Care testing , Lymphocytes (Bld) [#/Vol] 4.3 10*3/uL Normal 1.00-4.8 [facility] Comment on above: Performed By: #### G LULS #### Point of Care testing , Lymphocytes/100 WBC (Bld) 27.8 % Normal . [facility] Comment on above: Performed By: #### G LULS #### Point of Care testing , MCH (RBC) [Entitic mass] 30.0 pg Normal 24.7-34.3 [facility] Comment on above: Performed By: #### G LULS #### Point of Care testing , MCV (RBC) [Entitic vol] 89.6 fL Normal 80-100 [facility] Comment on above: Performed By: #### G GOYOLS #### Point of Care testing , Mean Corpuscular HGB Conc 33.5 g/dL Normal 32.0-35.0 [facility] Comment on above: Performed By: #### G GOYOLS #### Point of Care testing , Monocytes (Bld) [#/Vol] 1.2 10*3/uL High 0.0-0.8 [facility] Comment on above: Performed By: #### G GOYOLS #### Point of Care testing , Monocytes/100 WBC (Bld) 7.5 % Normal . [facility] Comment on above: Performed By: #### G GOYOLS #### Point of Care testing , Neutrophils (Bld) [#/Vol] 9.8 10*3/uL High 1.8-7.7 [facility] Comment on above: Performed By: #### G GOYOLS #### Point of Care testing , Neutrophils/100 WBC (Bld) 63.6 % Normal . [facility] Comment on above: Performed By: #### G GOYOLS #### Point of Care testing , NRBC% 0.0 /100{WBC} Normal 0-0.5 [facility] Comment on above: Performed By: #### G GOYOLS #### Point of Care testing , Platelet mean volume (Bld) [Entitic vol] 7.9 fL Normal 6.3-10.7 [facility] Comment on above: Performed By: #### G EDUARDO #### Point of Care testing , Platelets (Bld) [#/Vol] 275 10*3/uL Normal 150-450 [facility] Comment on above: Performed By: #### G EDUARDO #### Point of Care testing , RBC (Bld) [#/Vol] 4.34 10*6/uL Normal 3.60-5.00 [facility] Comment on above: Performed By: #### G EDUARDO #### Point of Care testing , WBC (Bld) [#/Vol] 15.4 10*3/uL High 3.8-11.6 [facility] Comment on above: Performed By: #### G LULS #### Point of Care testing , Creatinine [Mass/volume] in Serum or PlasmaOrdered By: Marty Hinds on 06-30-2023 Creatinine [Mass/Vol] 0.54 mg/dL 0.60-1.20 [facility] ECG 12 lead ECGon 06-30-2023 ECG 12 lead ECG [facility] [place] [address] Electrocardiograph Report Signed Patient: Rachel Mcgarry MR#: [id number] 1 : 1980 Acct:[id number] Age/Sex: 43 / F ADM Date: 06/30/23 Loc: Room: Type: [facility] Attending Dr: Marty Hinds DO Ordering Provider: [...] Signed By Vamsi Ospina MD 0834 Normal [facility] Eosinophils Auto (Bld) [#/Vo l]Ordered By: Marty Hinds on 06-30-2023 Eosinophils (Bld) [#/Vol] 0.1 10*3/uL 0.0-0.45 [facility] Eosinophils/100 WBC Auto (Bl d)Ordered By: Marty Hinds on 06-30-2023 Eosinophils/100 WBC (Bld) 0.4 % . [facility] Erythrocyte distribution wid th Auto (RBC) [Ratio]Ordered By: Marty Hinds on 06-30-2023 Erythrocyte distribution width (RBC) [Ratio] 13.3 % 11.9-15.3 [facility] Glucose [Mass/volume] in Ser um or PlasmaOrdered By: Marty Hinds on 06-30-2023 Glucose [Mass/Vol] 134 mg/dL 70-100 [facility] Comment on above: ADA recommended refe rence rangeRandom Glucose Reference Range is dependent on time and content of last meal. Glucose of more than 200 mg/dL in a nonstressed, ambulatory subject supports the diagnosis of Diabetes Mellitus. Hematocrit Auto (Bld) [Volum e fraction]Ordered By: Marty Hinds on 06-30-2023 Hematocrit (Bld) [Volume fraction] 38.9 % 34.0-46.4 [facility] Hemoglobin [Mass/volume] in BloodOrdered By: Marty Hinds on 06-30-2023 Hemoglobin (Bld) [Mass/Vol] 13.0 g/dL 11.8-15.4 [facility] Leukocytes [#/volume] correc cherie for nucleated erythrocytes in Blood by Automated counOrdered By: Marty Hinds on 06-30-2023 WBC corrected for nucl RBC Auto (Bld) [#/Vol] 15.4 10*3/uL 3.8-11.6 [facility] Lymphocytes Auto (Bld) [#/Vo l]Ordered By: Marty Hinds on 06-30-2023 Lymphocytes (Bld) [#/Vol] 4.3 10*3/uL 1.00-4.8 [facility] Lymphocytes/100 WBC Auto (Bl d)Ordered By: Marty Hinds on 06-30-2023 Lymphocytes/100 WBC (Bld) 27.8 % . [facility] MCH Auto (RBC) [Entitic mass ]Ordered By: Marty Hinds on 06-30-2023 MCH (RBC) [Entitic mass] 30.0 pg 24.7-34.3 [facility] MCHC Auto (RBC) [Mass/Vol]Or dered By: Marty Hinds on 06-30-2023 MCHC (RBC) [Mass/Vol] 33.5 g/dL 32.0-35.0 [facility] MCV Auto (RBC) [Entitic vol] Ordered By: Marty Hinds on 06-30-2023 MCV (RBC) [Entitic vol] 89.6 fL 80-100 [facility] Monocytes Auto (Bld) [#/Vol] Ordered By: Marty Hinds on 06-30-2023 Monocytes (Bld) [#/Vol] 1.2 10*3/uL 0.0-0.8 [facility] Monocytes/100 WBC Auto (Bld) Ordered By: Marty Hinds on 06-30-2023 Monocytes/100 WBC (Bld) 7.5 % . [facility] Neutrophils Auto (Bld) [#/Vo l]Ordered By: Marty Hinds on 06-30-2023 Neutrophils (Bld) [#/Vol] 9.8 10*3/uL 1.8-7.7 [facility] Neutrophils/100 WBC Auto (Bl d)Ordered By: Marty Hinds on 06-30-2023 Neutrophils/100 WBC (Bld) 63.6 % . [facility] No Panel InformationOrdered By: Marty Hinds on 06-30-2023 Estimated GFR (CKD-EPI) > 60.0 mL/Min [facility] Creatinine Clearance (Chem N/A [facility] Nucleated erythrocytes [Pres ence] in Blood by Automated countOrdered By: Marty Hinds on 06-30-2023 Nucleated RBC Auto Ql (Bld) 0.0 /100{WBC} 0-0.5 [facility] PST Type and Screenon 2022 ABO and Rh group Nom (Bld) Blood group A Rh(D) positive Normal [facility] Comment on above: Order Comment: Date of Surgery: [id number] Result Comment: PERF ORMED BY: [facility] [address] [place] [address] PATHOLOGIST OIL TRUCK DRIVER RIDGE HUERTA M.D. Platelet mean volume Auto (B ld) [Entitic vol]Ordered By: Marty Hinds on 06-30-2023 Platelet mean volume (Bld) [Entitic vol] 7.9 fL 6.3-10.7 [facility] Platelets Auto (Bld) [#/Vol] Ordered By: Marty Hinds on 06-30-2023 Platelets (Bld) [#/Vol] 275 10*3/uL 150-450 [facility] Potassium [Moles/volume] in Serum or PlasmaOrdered By: Marty Hinds on 06-30-2023 Potassium [Moles/Vol] 4.3 mmol/L 3.5-5.1 [facility] RBC Auto (Bld) [#/Vol]Ordere d By: Marty Hinds on 06-30-2023 RBC (Bld) [#/Vol] 4.34 10*6/uL 3.60-5.00 [facility] Serum or plasma anion gap de terminationOrdered By: Marty Hinds on 06-30-2023 Anion gap [Moles/Vol] 14.6 mmol/L 6.0-15.0 [facility] Sodium [Moles/volume] in Ser um or PlasmaOrdered By: Marty Hinds on 06-30-2023 Sodium [Moles/Vol] 137 mmol/L 136-145 [facility] Urea nitrogen [Mass/volume] in Serum or PlasmaOrdered By: Marty Hinds on 06-30-2023 Urea nitrogen [Mass/Vol] 11 mg/dL 04-27 [facility] WBC Auto (Bld) [#/Vol]Ordere d By: Marty iHnds on 06-30-2023 WBC (Bld) [#/Vol] 15.4 10*3/uL 3.8-11.6 [facility] HCG ( test) IA.rapi d Ql (U)Ordered By: Kyler Miramontes on 05-05-2023 HCG ( test) Ql (U) Negative [facility] HCG,Urineon 05-05-2023 Beta HCG ( test) Ql (U) Negative Normal [facility] Comment on above: Result Comment: PERF ORMED BY: [facility] [address] [place] [address] PATHOLOGIST OIL TRUCK DRIVER RIDGE HUERTA M.D. Performed By: #### G LULS #### Point of Care testing , Alanine aminotransferase [En zymatic activity/volume] in Serum or PlasmaOrdered By: Ajit Pettit on 05-04-2023 ALT [Catalytic activity/Vol] 17 U/L [facility] Albumin [Mass/volume] in Ser um or Plasma by Bromocresol green (BCG) dye binding methoOrdered By: Ajit Pettit on 05-04-2023 Albumin BCG dye [Mass/Vol] 4.4 g/dL 3.5-5.7 [facility] Alkaline phosphatase [Enzyma tic activity/volume] in Serum or PlasmaOrdered By: Ajit Lariossic on 05-04-2023 ALP [Catalytic activity/Vol] 55 U/L 34-104 [facility] Aspartate aminotransferase [ Enzymatic activity/volume] in Serum or PlasmaOrdered By: Ajit Spasic on 05-04-2023 AST [Catalytic activity/Vol] 18 U/L 13-39 [facility] Basophils Auto (Bld) [#/Vol] Ordered By: Ajit Spasic on 05-04-2023 Basophils (Bld) [#/Vol] 0.1 10*3/uL 0.0-0.2 [facility] Basophils/100 WBC Auto (Bld) Ordered By: Ajit Lariossic on 05-04-2023 Basophils/100 WBC (Bld) 0.9 % . [facility] Bilirubin.total [Mass/volume ] in Serum or PlasmaOrdered By: Ajit Lariossic on 05-04-2023 Bilirubin [Mass/Vol] 0.3 mg/dL 0.3-1.0 [facility] Calcium [Mass/volume] in Ser um or PlasmaOrdered By: Ajit Spasic on 05-04-2023 Calcium [Mass/Vol] 9.6 mg/dL 8.6-10.3 [facility] Carbon dioxide, total [Moles /volume] in Serum or PlasmaOrdered By: Ajit Spasic on 05-04-2023 CO2 [Moles/Vol] 28.5 mmol/L 21.0-31.0 [facility] Chloride [Moles/volume] in S alissa or PlasmaOrdered By: Ajit Spasic on 05-04-2023 Chloride [Moles/Vol] 100 mmol/L 98-107 [facility] Cholesterol [Mass/volume] in Serum or PlasmaOrdered By: Ajit Spasic on 05-04-2023 Cholesterol [Mass/Vol] 180 mg/dL 140-200 [facility] Comment on above: Chol less than 200 m g/dl low riskChol 201-239 mg/dl borderline riskChol 240 mg/dl and greater high risk Cholesterol in LDL Calc [Mas s/Vol]Ordered By: Ajit Pettit on 05-04-2023 Cholesterol in LDL [Mass/Vol] 81 mg/dL 0-100 [facility] Comment on above: LDL ATP III CLASSIFI CATIONLDL less than 100 mg/dL OptimalLDL 100-129 mg/dL Near or above optimalLDL 130-159 mg/dL Borderline highLDL 160-189 mg/dL HighLDL greater than 189 mg/dL Very high Cholesterol in VLDL Calc [Ma ss/Vol]Ordered By: Ajit Pettit on 05-04-2023 Cholesterol in VLDL [Mass/Vol] 46 mg/dL [facility] Complete Blood Count Auto Di ffon 05-04-2023 Basophils (Bld) [#/Vol] 0.1 10*3/uL Normal 0.0-0.2 [facility] Comment on above: Result Comment: PERF ORMED BY: [place] [address] PATHOLOGIST OIL TRUCK DRIVER RIDGE HUERTA M.D. Performed By: #### C MP #### [place] [address] [place] Basophils/100 WBC (Bld) 0.9 % Normal . [facility] Comment on above: Performed By: #### C MP #### [facility] [address] [place] [address] [place] Eosinophils (Bld) [#/Vol] 0.1 10*3/uL Normal 0.0-0.45 [facility] Comment on above: Performed By: #### C MP #### [facility] [address] [place] [address] [place] Eosinophils/100 WBC (Bld) 0.5 % Normal . [facility] Comment on above: Performed By: #### C MP #### [facility] [address] [place] [address] [place] Erythrocyte distribution width (RBC) [Ratio] 13.4 % Normal 11.9-15.3 [facility] Comment on above: Performed By: #### C MP #### [address] Hematocrit (Bld) [Volume fraction] 41.7 % Normal 34.0-46.4 [facility] Comment on above: Performed By: #### C MP #### [address] Hemoglobin (Bld) [Mass/Vol] 14.0 g/dL Normal 11.8-15.4 [facility] Comment on above: Performed By: #### C MP #### [address] Lymphocytes (Bld) [#/Vol] 3.2 10*3/uL Normal 1.00-4.8 [facility] Comment on above: Performed By: #### C MP #### [address] Lymphocytes/100 WBC (Bld) 22.3 % Normal . [facility] Comment on above: Performed By: #### C MP #### [address] MCH (RBC) [Entitic mass] 29.8 pg Normal 24.7-34.3 [facility] Comment on above: Performed By: #### C MP #### [address] MCV (RBC) [Entitic vol] 89.1 fL Normal 80-100 [facility] Comment on above: Performed By: #### C MP #### [address] Mean Corpuscular HGB Conc 33.5 g/dL Normal 32.0-35.0 [facility] Comment on above: Performed By: #### C MP #### [address] Monocytes (Bld) [#/Vol] 0.9 10*3/uL High 0.0-0.8 [facility] Comment on above: Performed By: #### C MP #### [facility] [address] [place] [address] [place] Monocytes/100 WBC (Bld) 6.3 % Normal . [facility] Comment on above: Performed By: #### C MP #### [facility] [address] Neutrophils (Bld) [#/Vol] 10.1 10*3/uL High 1.8-7.7 [facility] Comment on above: Performed By: #### C MP #### [facility] [address] Neutrophils/100 WBC (Bld) 70.0 % Normal . [facility] Comment on above: Performed By: #### C MP #### [address] NRBC% 0.1 /100{WBC} Normal 0-0.5 [facility] Comment on above: Performed By: #### C MP #### [address] Platelet mean volume (Bld) [Entitic vol] 8.4 fL Normal 6.3-10.7 [facility] Comment on above: Performed By: #### C MP #### [place] [address] [place] Platelets (Bld) [#/Vol] 328 10*3/uL Normal 150-450 [facility] Comment on above: Performed By: #### C MP #### [place] [address] [place] RBC (Bld) [#/Vol] 4.68 10*6/uL Normal 3.60-5.00 [facility] Comment on above: Performed By: #### C MP #### [address] WBC (Bld) [#/Vol] 14.4 10*3/uL High 3.8-11.6 [facility] Comment on above: Performed By: #### C MP #### [address] Comprehensive Metabolic Pane mark 05-04-2023 Albumin [Mass/Vol] 4.4 g/dL Normal 3.5-5.7 [facility] Comment on above: Performed By: #### C MP #### [address] Albumin/Globulin [Mass ratio] 1.9 {ratio} Normal [facility] Comment on above: Performed By: #### C MP #### [address] ALP [Catalytic activity/Vol] 55 U/L Normal 34-104 [facility] Comment on above: Performed By: #### C MP #### [address] ALT [Catalytic activity/Vol] 17 U/L Normal 7-52 [facility] Comment on above: Performed By: #### C MP #### [address] Anion gap [Moles/Vol] 11.8 mmol/L Normal 6.0-15.0 [facility] Comment on above: Performed By: #### C MP #### [address] AST [Catalytic activity/Vol] 18 U/L Normal 13-39 [facility] Comment on above: Performed By: #### C MP #### [address] Bilirubin [Mass/Vol] 0.3 mg/dL Normal 0.3-1.0 [facility] Comment on above: Performed By: #### C MP #### [address] Calcium [Mass/Vol] 9.6 mg/dL Normal 8.6-10.3 [facility] Comment on above: Performed By: #### C MP #### [address] Chloride [Moles/Vol] 100 mmol/L Normal 98-107 [facility] Comment on above: Performed By: #### C MP #### [facility] [address] CO2 [Moles/Vol] 28.5 mmol/L Normal 21.0-31.0 [facility] Comment on above: Performed By: #### C MP #### [facility] [address] Creatinine [Mass/Vol] 0.65 mg/dL Normal 0.60-1.20 [facility] Comment on above: Performed By: #### C MP #### [facility] [address] [place] [address] [place] GFR/1.73 sq M.predicted MDRD (S/P/Bld) [Vol rate/Area] mL/min/{1.73_m2} Normal [facility] Comment on above: Performed By: #### C MP #### [facility] [address] Globulin (S) [Mass/Vol] 2.3 g/dL Normal [facility] Comment on above: Performed By: #### C MP #### [address] Glucose [Mass/Vol] 124 mg/dL High 70-100 [facility] Comment on above: Result Comment: [facility] Glucose Reference Range is dependent on time and content of last meal. Glucose of more than 200 mg/dL in a nonstressed, ambulatory subject supports the diagnosis of Diabetes Mellitus. ADA recommended reference range Performed By: #### C MP #### [facility] [address] Potassium [Moles/Vol] 5.3 mmol/L High 3.5-5.1 [facility] Comment on above: Performed By: #### C MP #### [facility] [address] Protein [Mass/Vol] 6.7 g/dL Normal 6.4-8.9 [facility] Comment on above: Performed By: #### C MP #### [facility] [address] Sodium [Moles/Vol] 135 mmol/L Low 136-145 [facility] Comment on above: Performed By: #### C MP #### [facility] [address] Urea nitrogen [Mass/Vol] 9 mg/dL Normal 7-25 [facility] Comment on above: Performed By: #### C MP #### [facility] [address] Creatinine [Mass/volume] in Serum or PlasmaOrdered By: Ajit Pettit on 05-04-2023 Creatinine [Mass/Vol] 0.65 mg/dL 0.60-1.20 [facility] Eosinophils Auto (Bld) [#/Vo l]Ordered By: Ajit Pettit on 05-04-2023 Eosinophils (Bld) [#/Vol] 0.1 10*3/uL 0.0-0.45 [facility] Eosinophils/100 WBC Auto (Bl d)Ordered By: Ajit Pettit on 05-04-2023 Eosinophils/100 WBC (Bld) 0.5 % . [facility] Erythrocyte distribution wid th Auto (RBC) [Ratio]Ordered By: Ajit Pettit on 05-04-2023 Erythrocyte distribution width (RBC) [Ratio] 13.4 % 11.9-15.3 [facility] FE PROon 05-04-2023 % Iron Saturation 20.0 % Normal 20-50 [facility] Comment on above: Performed By: #### C MP #### [facility] [address] Ferritin [Mass/Vol] 90.4 ng/mL Normal 11.0-306.8 [facility] Comment on above: Performed By: #### C MP #### [facility] [address] Iron [Mass/Vol] 95 ug/dL Normal 50-212 [facility] Comment on above: Performed By: #### C MP #### [facility] [address] Total Iron Binding Capacity 476 ug/dL High 255-450 [facility] Comment on above: Performed By: #### C MP #### [facility] [address] [place] [address] [place] Transferrin [Mass/Vol] 340 mg/dL Normal 203-362 [facility] Comment on above: Performed By: #### C MP #### [facility] [address] [place] [id number] [place] Ferritin [Mass/volume] in Se rum or PlasmaOrdered By: Ajit Pettit on 05-04-2023 Ferritin [Mass/Vol] 90.4 ng/mL 11.0-306.8 [facility] Globulin Calc (S) [Mass/Vol] Ordered By: Ajit Pettit on 05-04-2023 Globulin (S) [Mass/Vol] 2.3 g/dL [facility] Glucose [Mass/volume] in Ser um or PlasmaOrdered By: Ajit Pettit on 05-04-2023 Glucose [Mass/Vol] 124 mg/dL 70-100 [facility] Comment on above: ADA recommended refe rence rangeRandom Glucose Reference Range is dependent on time and content of last meal. Glucose of more than 200 mg/dL in a nonstressed, ambulatory subject supports the diagnosis of Diabetes Mellitus. Hematocrit Auto (Bld) [Volum e fraction]Ordered By: Ajit Pettit on 05-04-2023 Hematocrit (Bld) [Volume fraction] 41.7 % 34.0-46.4 [facility] Hemoglobin [Mass/volume] in BloodOrdered By: Ajit Pettit on 05-04-2023 Hemoglobin (Bld) [Mass/Vol] 14.0 g/dL 11.8-15.4 [facility] Iron [Mass/volume] in Serum or PlasmaOrdered By: Ajit Pettit on 05-04-2023 Iron [Mass/Vol] 95 ug/dL 50-212 [facility] Iron binding capacity [Mass/ volume] in Serum or PlasmaOrdered By: Ajit Pettit on 05-04-2023 Iron binding capacity [Mass/Vol] 476 ug/dL 255-450 [facility] Iron saturation [Mass Fracti on] in Serum or PlasmaOrdered By: Ajit Pettit on 05-04-2023 Iron saturation [Mass fraction] 20.0 % 20-50 [facility] Leukocytes [#/volume] correc cherie for nucleated erythrocytes in Blood by Automated counOrdered By: Ajit Pettit on 05-04-2023 WBC corrected for nucl RBC Auto (Bld) [#/Vol] 14.4 10*3/uL 3.8-11.6 [facility] Lipid Panelon 05-04-2023 Cholesterol [Mass/Vol] 180 mg/dL Normal 140-200 [facility] Comment on above: Result Comment: Chol less than 200 mg/dl low risk Chol 201-239 mg/dl borderline risk Chol 240 mg/dl and greater high risk Performed By: #### C MP #### [facility] [address] Cholesterol in HDL [Mass/Vol] 52 mg/dL Normal 23-92 [facility] Comment on above: Result Comment: HDL CHOL ATP-III CLASSIFICATION Cardiovascular Risk HDL > or equal to 60 mg/dL LOW HDL < 40 mg/dL HIGH Performed By: #### C MP #### [facility] [address] [place] [id number] [place] Cholesterol.total/Suellen sterol in HDL [Mass ratio] 3.5 {ratio} Normal <5.0 [facility] Comment on above: Performed By: #### C MP #### [facility] [address] [place] [id number] [place] LDL Cholesterol,Calculated 81 mg/dL Normal 0-100 [facility] Comment on above: Result Comment: LDL ATP III CLASSIFICATION LDL less than 100 mg/dL Optimal LDL 100-129 mg/dL Near or above optimal LDL 130-159 mg/dL Borderline high LDL 160-189 mg/dL High LDL greater than 189 mg/dL Very high Performed By: #### C MP #### [facility] [address] [place] [id number] [place] Triglyceride w/Reflex 233 mg/dL High 0-149 [facility] Comment on above: Result Comment: TRIG ATP III CLASSIFICATION TRIG less than 150 mg/dL Normal TRIG 150-199 mg/dL Borderline high TRIG 200-500 mg/dL High TRIG greater than 500 mg/dL Very high Standard traceable to the Center for Disease Conrtrol and Prevention (CDC) test method. Performed By: #### C MP #### [facility] [address] VLDL CHOLESTEROL 46 mg/dL Normal [facility] Comment on above: Performed By: #### C MP #### [facility] [address] Lymphocytes Auto (Bld) [#/Vo l]Ordered By: Ajit Pettit on 05-04-2023 Lymphocytes (Bld) [#/Vol] 3.2 10*3/uL 1.00-4.8 [facility] Lymphocytes/100 WBC Auto (Bl d)Ordered By: Ajit Millanc on 05-04-2023 Lymphocytes/100 WBC (Bld) 22.3 % . [facility] MCH Auto (RBC) [Entitic mass ]Ordered By: Ajit Pettit on 05-04-2023 MCH (RBC) [Entitic mass] 29.8 pg 24.7-34.3 [facility] MCHC Auto (RBC) [Mass/Vol]Or dered By: Ajit Millanc on 05-04-2023 MCHC (RBC) [Mass/Vol] 33.5 g/dL 32.0-35.0 [facility] MCV Auto (RBC) [Entitic vol] Ordered By: Ajit Millanc on 05-04-2023 MCV (RBC) [Entitic vol] 89.1 fL 80-100 [facility] Monocytes Auto (Bld) [#/Vol] Ordered By: Ajit Lariossic on 05-04-2023 Monocytes (Bld) [#/Vol] 0.9 10*3/uL 0.0-0.8 [facility] Monocytes/100 WBC Auto (Bld) Ordered By: Ajit Lariossic on 05-04-2023 Monocytes/100 WBC (Bld) 6.3 % . [facility] Neutrophils Auto (Bld) [#/Vo l]Ordered By: Ajit Millanc on 05-04-2023 Neutrophils (Bld) [#/Vol] 10.1 10*3/uL 1.8-7.7 [facility] Neutrophils/100 WBC Auto (Bl d)Ordered By: Ajit Pettit on 05-04-2023 Neutrophils/100 WBC (Bld) 70.0 % . [facility] No Panel InformationOrdered By: Ajit Pettit on 05-04-2023 Estimated GFR (CKD-EPI) > 60.0 mL/Min [facility] Creatinine Clearance (Chem N/A [facility] Nucleated erythrocytes [Pres ence] in Blood by Automated countOrdered By: Ajit Pettit on 05-04-2023 Nucleated RBC Auto Ql (Bld) 0.1 /100{WBC} 0-0.5 [facility] Platelet mean volume Auto (B ld) [Entitic vol]Ordered By: Ajit Pettit on 05-04-2023 Platelet mean volume (Bld) [Entitic vol] 8.4 fL 6.3-10.7 [facility] Platelets Auto (Bld) [#/Vol] Ordered By: Ajit Pettit on 05-04-2023 Platelets (Bld) [#/Vol] 328 10*3/uL 150-450 [facility] Potassium [Moles/volume] in Serum or PlasmaOrdered By: Ajit Pettit on 05-04-2023 Potassium [Moles/Vol] 5.3 mmol/L 3.5-5.1 [facility] Protein [Mass/volume] in Ser um or PlasmaOrdered By: Ajit Pettit on 05-04-2023 Protein [Mass/Vol] 6.7 g/dL 6.4-8.9 [facility] RBC Auto (Bld) [#/Vol]Ordere d By: Ajit Pettit on 05-04-2023 RBC (Bld) [#/Vol] 4.68 10*6/uL 3.60-5.00 [facility] Serum or plasma albumin/glob ulin mass ratioOrdered By: Ajit Pettit on 05-04-2023 Albumin/Globulin [Mass ratio] 1.9 {ratio} [facility] Serum or plasma anion gap de terminationOrdered By: Ajit Pettit on 05-04-2023 Anion gap [Moles/Vol] 11.8 mmol/L 6.0-15.0 [facility] Serum or plasma high density lipoprotein (HDL) cholesterol measurementOrdered By: Ajit Pettit on 05-04-2023 Cholesterol in HDL [Mass/Vol] 52 mg/dL 23-92 [facility] Comment on above: HDL CHOL ATP-III CLA SSIFICATION Cardiovascular RiskHDL > or equal to 60 mg/dL LOWHDL < 40 mg/dL HIGH Serum or plasma total choles terol/high density lipoprotein (HDL) cholesterol mass ratOrdered By: Ajit Pettit on 05-04-2023 Cholesterol.total/Suellen sterol in HDL [Mass ratio] 3.5 {ratio} <5.0 [facility] Sodium [Moles/volume] in Ser um or PlasmaOrdered By: Ajit Pettit on 05-04-2023 Sodium [Moles/Vol] 135 mmol/L 136-145 [facility] Thyroid Stim Hormone w/Rflxo n 05-04-2023 Thyroid Stim Hormone w/Rflx 1.97 u[iU]/mL Normal 0.45-5.33 [facility] Comment on above: Result Comment: PERF ORMED BY: [place] [id number] PATHOLOGIST [employer]IL TRUCK DRIVER RIDGE HUERTA M.D. Performed By: #### C #### [address] Thyrotropin [Units/volume] i n Serum or PlasmaOrdered By: Ajit Pettit on 05-04-2023 TSH Qn 1.97 m[IU]/L 0.45-5.33 [facility] Transferrin [Mass/volume] in Serum or PlasmaOrdered By: Ajit Pettit on 05-04-2023 Transferrin [Mass/Vol] 340 mg/dL 203-362 [facility] Triglyceride [Mass/volume] i n Serum or PlasmaOrdered By: Ajit Pettit on 05-04-2023 Triglyceride [Mass/Vol] 233 mg/dL 0-149 [facility] Comment on above: TRIG ATP III CLASSIF ICATIONTRIG less than 150 mg/dL NormalTRIG 150-199 mg/dL Borderline highTRIG 200-500 mg/dL High TRIG greater than 500 mg/dL Very highStandard traceable to the Center for Disease Conrtrol and Prevention (CDC) test method. Urea nitrogen [Mass/volume] in Serum or PlasmaOrdered By: Ajit Pettit on 05-04-2023 Urea nitrogen [Mass/Vol] 9 mg/dL 04-27 [facility] Urine Cultureon 05-04-2023 Bacteria identified Cx Nom (U) ORGANISM: Strep. agalactiae Grp B (O:B) [place] Count <10,000 PERFORMED BY: [place] [address] PATHOLOGIST OIL TRUCK DRIVER RIDGE HUERTA M.D. Normal [facility] Comment on above: Performed By: #### G LULS #### Point of Care testing , Urine culture routineOrdered By: Ajit Pettit on 05-04-2023 Bacteria identified Cx Nom (U) Strep. agalactiae Grp B [facility] WBC Auto (Bld) [#/Vol]Ordere d By: Ajit Pettit on 05-04-2023 WBC (Bld) [#/Vol] 14.4 10*3/uL 3.8-11.6 [facility] XR thoracic spine 3V*on 04-04 XR thoracic spine 3V* [facility] [address] [place] [address] [place] [id number] XRay Report Signed Patient: Racehl Mcgarry MR#: [id number] 1 : 1980 Acct:[id number] Age/Sex: 43 / F ADM Date: 04/26/23 Loc: [place] Room: Type: [facility] Attending Dr: Kyler Miramontes MD Copies to: [...] Yeboah Jr., D.O.04/26/2023 1:04 PM Dictation Location: [place] [address] Transcribed By: [facility] 04/26/23 1304 Dictated By: Andrés Yeboah Jr, DO 04/26/23 1303 Signed By: 04/26/23 1304 Normal [facility] HCG ( test) IA.rapi d Ql (U)Ordered By: Kyler Miramontes on 04-14-2023 HCG ( test) Ql (U) Negative [facility] HCG,Urineon 04-14-2023 Beta HCG ( test) Ql (U) Negative [facility] Comment on above: Result Comment: PERF ORMED BY: [facility] [address] [facility] [place] [address] PATHOLOGIST OIL TRUCK DRIVER RIDGE HUERTA M.D. Performed By: #### U HCG ####[facility] [id number] [place] [id number] [facility] CBC AUTO DIFFon 02-15-2023 BASO # 0.1 103/ul Normal 0.0-0.1 [facility] Comment on above: Performed By: #### C BC #### [facility] [address] [place] [address] [address] Vito Grimm Basophils/100 WBC (Bld) 0.5 % Normal 0.2-2.0 [facility] Comment on above: Performed By: #### C BC #### [facility] [address] [place] [address] [address] Vito Grimm EO # 0.1 103/ul Normal 0.0-0.7 [facility] Comment on above: Performed By: #### C BC #### [facility] [address] [place] [address] [address] Vito Grimm Eosinophils/100 WBC (Bld) 0.8 % Critically low 0.9-7.0 [facility] Comment on above: Performed By: #### C BC #### [facility] [address] [place] [address] [address] Vito Grimm Erythrocyte distribution width (RBC) [Ratio] 13.1 % Normal 11.0-15.0 [facility] Comment on above: Performed By: #### C BC #### [facility] [address] [place] [address] Dr. Vito Grimm Hematocrit (Bld) [Volume fraction] 41.2 % Normal 36.0-48.0 [facility] Comment on above: Performed By: #### C BC #### [facility] [address] [place] [address] Dr. Vito Grimm Hemoglobin (Bld) [Mass/Vol] 13.4 g/dL Normal 12.0-16.0 [facility] Comment on above: Performed By: #### C BC #### [facility] [address] [place] [address] Dr. Vito Grimm IG # 0.05 10e3/ul Critically high 0.00-0.03 [facility] Comment on above: Performed By: #### C BC #### [facility] [address] [place] [address] Dr. Vito Grimm IG % 0.4 % Normal 0.0-0.5 [facility] Comment on above: Performed By: #### C BC #### [facility] [address] [place] [address] Dr. Vito Grimm LYMPH # 4.8 103/ul Critically high 1.2-3.8 [facility] Comment on above: Performed By: #### C BC #### [facility] [address] [place] [address] Dr. Vito Grimm Lymphocytes/100 WBC (Bld) 38.8 % Normal 20.5-60.0 [facility] Comment on above: Performed By: #### C BC #### [facility] [address] [place] [address] Dr. Vito Grimm MANUAL DIFF REQ NO Normal [facility] Comment on above: Performed By: #### C BC #### [facility] [address] [place] [address] Dr. Vito rGimm MCH (RBC) [Entitic mass] 29.9 pg Normal 26.7-34.0 [facility] Comment on above: Performed By: #### C BC #### [facility] [address] [place] [address] Dr. Vito Grimm MCHC (RBC) [Mass/Vol] 32.5 g/dL Normal 29.9-35.2 [facility] Comment on above: Performed By: #### C BC #### [facility] [address] [place] [address] Dr. Vito Grimm MCV (RBC) [Entitic vol] 92.0 fL Normal 81.0-99.0 [facility] Comment on above: Performed By: #### C BC #### [facility] [address] [place] [address] Dr. Vito Grimm MONO # 0.9 103/ul Critically high 0.3-0.8 [facility] Comment on above: Performed By: #### C BC #### [facility] [address] [place] [address] Dr. Vito Grimm Monocytes/100 WBC (Bld) 7.4 % Normal 1.7-12.0 [facility] Comment on above: Performed By: #### C BC #### [facility] [address] [place] [address] Dr. iVto Grimm NEUT # 6.5 103/ul Normal 1.4-6.5 [facility] Comment on above: Performed By: #### C BC #### [facility] [address] [place] [address] Dr. Vito Grimm Neutrophils/100 WBC (Bld) 52.1 % Normal 43.0-75.0 [facility] Comment on above: Performed By: #### C BC #### [facility] [address] [place] [address] Dr. Vito Grimm Platelet mean volume (Bld) [Entitic vol] 10.0 fL Normal 9.5-13.5 [facility] Comment on above: Performed By: #### C BC #### [facility] [address] [place] [address] Dr. Vito Grimm PLT 298 103/ul Normal 150-450 [facility] Comment on above: Performed By: #### C BC #### [facility] [address] [place] [address] Dr. Vito Grimm RBC 4.48 106/ul Normal 4.20-5.40 [facility] Comment on above: Performed By: #### C BC #### [facility] [address] [place] [address] Dr. Vito Grimm WBC 12.4 103/ul Critically high 4.0-11.0 [facility] Comment on above: Performed By: #### C BC #### [facility] [address] [place] [address] Dr. Vito Grimm DEPAKENE/ VALPROIC ACIDon DEPAKENE 49.4 ug/ml Critically low 50.0-100.0 [facility] Comment on above: Performed By: #### C MP, HSTROPN #### [facility] [address] [place] [address] Dr. Vito Grimm LACTATE/LACTIC ACIDon 2022 Lactate [Moles/Vol] 2.7 mmol/L Critically high 0.4-2.0 [facility] Comment on above: Performed By: #### L ACT #### [facility] [address] [place] [address] Dr. Vito Grimm PROF CHEM 8 (BAS METB)on Anion gap [Moles/Vol] 17.6 mmol/L Normal [facility] Comment on above: Performed By: #### B MP #### [facility] [address] [place] [address] Dr. Vito Grimm Calcium [Mass/Vol] 8.7 mg/dL Normal 8.5-10.1 [facility] Comment on above: Performed By: #### B MP #### [facility] [address] [place] [address] Dr. Vito Grimm Chloride [Moles/Vol] 99 mmol/L Normal 98-107 [facility] Comment on above: Performed By: #### B MP #### [facility] [address] [place] [address] [address] Vito Grimm CO2 [Moles/Vol] 23.5 mmol/L Normal 21.0-32.0 [facility] Comment on above: Performed By: #### B MP #### [facility] [address] [place] [address] [address] Vito Grimm Creatinine [Mass/Vol] 0.75 mg/dL Normal 0.55-1.02 [facility] Comment on above: Performed By: #### B MP #### [facility] [address] [place] [address] [address] Vito Grimm EGFR-AF VINCENTIAN >60 Normal >=60 [facility] Comment on above: Performed By: #### B MP #### [facility] [address] [place] [address] Dr. Vito Grimm EGFR-NON AF VINCENTIAN >60 Normal >=60 [facility] Comment on above: Performed By: #### B MP #### [facility] [address] [place] [address] [address] Vito Grimm Glucose [Mass/Vol] 273 mg/dL Critically high 74-106 [facility] Comment on above: Performed By: #### B MP #### [facility] [address] [place] [address] Dr. Vito Grimm Potassium [Moles/Vol] 4.1 mmol/L Normal 3.5-5.[address] [facility] Comment on above: Performed By: #### B MP #### [facility] [address] [place] [address] [address] Vito Grimm Sodium [Moles/Vol] 136 mmol/L Normal 136-[address] [facility] Comment on above: Performed By: #### B MP #### [facility] [address] [place] [address] [address] Vito Grimm Urea nitrogen [Mass/Vol] 6.0 mg/dL Critically low 7.0-18.0 [facility] Comment on above: Performed By: #### B MP #### [facility] [address] [place], [place] [address] Dr. Vito Grimm Urea nitrogen/Creatinine [Mass ratio] 8.0 mg/mg Normal [facility] Comment on above: Performed By: #### B MP #### [facility] [address] [place], [place] [address] Dr. Vito Grimm Alanine aminotransferase [En zymatic activity/volume] in Serum or PlasmaOrdered By: Ajit Pettit on 02-09-2023 ALT [Catalytic activity/Vol] 29 U/L 7-52 [facility] Albumin [Mass/volume] in Ser um or Plasma by Bromocresol green (BCG) dye binding methoOrdered By: Ajit Ptetit on 02-09-2023 Albumin BCG dye [Mass/Vol] 4.4 g/dL 3.5-5.7 [facility] Alkaline phosphatase [Enzyma tic activity/volume] in Serum or PlasmaOrdered By: Ajit Pettit on 02-09-2023 ALP [Catalytic activity/Vol] 72 U/L 34-104 [facility] Aspartate aminotransferase [ Enzymatic activity/volume] in Serum or PlasmaOrdered By: Ajit Millanc on 02-09-2023 AST [Catalytic activity/Vol] 27 U/L 13-39 [facility] Basophils Auto (Bld) [#/Vol] Ordered By: Ajit Pettit on 02-09-2023 Basophils (Bld) [#/Vol] 0.1 10*3/uL 0.0-0.2 [facility] Basophils/100 WBC Auto (Bld) Ordered By: Ajit Millanc on 02-09-2023 Basophils/100 WBC (Bld) 0.6 % . [facility] Bilirubin.total [Mass/volume ] in Serum or PlasmaOrdered By: Ajit Millanc on 02-09-2023 Bilirubin [Mass/Vol] 0.3 mg/dL 0.3-1.0 [facility] Calcium [Mass/volume] in Ser um or PlasmaOrdered By: Ajit Millanc on 02-09-2023 Calcium [Mass/Vol] 9.3 mg/dL 8.6-10.3 [facility] Carbon dioxide, total [Moles /volume] in Serum or PlasmaOrdered By: Ajit Pettit on 02-09-2023 CO2 [Moles/Vol] 23.8 mmol/L 21.0-31.0 [facility] Chloride [Moles/volume] in S alissa or PlasmaOrdered By: Ajit Pettit on 02-09-2023 Chloride [Moles/Vol] 101 mmol/L 98-107 [facility] Cholesterol [Mass/volume] in Serum or PlasmaOrdered By: Ajit Pettit on 02-09-2023 Cholesterol [Mass/Vol] 166 mg/dL 140-200 [facility] Comment on above: Chol less than 200 m g/dl low riskChol 201-239 mg/dl borderline riskChol 240 mg/dl and greater high risk Cholesterol in LDL Calc [Mas s/Vol]Ordered By: Ajit Pettit on 02-09-2023 Cholesterol in LDL [Mass/Vol] TNP [facility] Comment on above: Test not performed Cholesterol in LDL [Mass/vol ume] in Serum or PlasmaOrdered By: Ajit Pettit on 02-09-2023 Cholesterol in LDL [Mass/Vol] 61 mg/dL 0-100 [facility] Comment on above: LDL ATP III CLASSIFI CATIONLDL less than 100 mg/dL OptimalLDL 100-129 mg/dL Near or above optimalLDL 130-159 mg/dL Borderline highLDL 160-189 mg/dL HighLDL greater than 189 mg/dL Very high Cholesterol in VLDL Calc [Ma ss/Vol]Ordered By: Ajit Pettit on 02-09-2023 Cholesterol in VLDL [Mass/Vol] 97 mg/dL [facility] Complete Blood Count Auto Di ffon 02-09-2023 Basophils (Bld) [#/Vol] 0.1 10*3/uL Normal 0.0-0.2 [facility] Comment on above: Order Comment: Reaso n for Exam Type 2 diabetes mellitus without complication, without long- Result Comment: PERF ORMED BY: [facility] [address] [place] [address] PATHOLOGIST OIL TRUCK DRIVER RIDGE HUERTA M.D. Performed By: #### U HCG #### [facility] [address] [place] [address] [place] Basophils/100 WBC (Bld) 0.6 % Normal . [facility] Comment on above: Order Comment: Reaso n for Exam Type 2 diabetes mellitus without complication, without long- Performed By: #### U HCG #### [facility] [address] Eosinophils (Bld) [#/Vol] 0.1 10*3/uL Normal 0.0-0.45 [facility] Comment on above: Order Comment: Reaso n for Exam Type 2 diabetes mellitus without complication, without long- Performed By: #### U HCG #### [facility] [address] [place] [address] [place] Eosinophils/100 WBC (Bld) 0.7 % Normal . [facility] Comment on above: Order Comment: Reaso n for Exam Type 2 diabetes mellitus without complication, without long- Performed By: #### U HCG #### [address] Erythrocyte distribution width (RBC) [Ratio] 13.1 % Normal 11.9-15.3 [facility] Comment on above: Order Comment: Reaso n for Exam Type 2 diabetes mellitus without complication, without long- Performed By: #### U HCG #### [address] Hematocrit (Bld) [Volume fraction] 39.7 % Normal 34.0-46.4 [facility] Comment on above: Order Comment: Reaso n for Exam Type 2 diabetes mellitus without complication, without long- Performed By: #### U HCG #### [place] [address] [place] Hemoglobin (Bld) [Mass/Vol] 13.1 g/dL Normal 11.8-15.4 [facility] Comment on above: Order Comment: Reaso n for Exam Type 2 diabetes mellitus without complication, without long- Performed By: #### U HCG #### [facility] [address] [place] [address] [place] Lymphocytes (Bld) [#/Vol] 3.6 10*3/uL Normal 1.00-4.8 [facility] Comment on above: Order Comment: Reaso n for Exam Type 2 diabetes mellitus without complication, without long- Performed By: #### U HCG #### [address] Lymphocytes/100 WBC (Bld) 27.3 % Normal . [facility] Comment on above: Order Comment: Reaso n for Exam Type 2 diabetes mellitus without complication, without long- Performed By: #### U HCG #### [address] MCH (RBC) [Entitic mass] 29.5 pg Normal 24.7-34.3 [facility] Comment on above: Order Comment: Reaso n for Exam Type 2 diabetes mellitus without complication, without long- Performed By: #### U HCG #### [address] MCV (RBC) [Entitic vol] 89.3 fL Normal 80-100 [facility] Comment on above: Order Comment: Reaso n for Exam Type 2 diabetes mellitus without complication, without long- Performed By: #### U HCG #### [address] Mean Corpuscular HGB Conc 33.1 g/dL Normal 32.0-35.0 [facility] Comment on above: Order Comment: Reaso n for Exam Type 2 diabetes mellitus without complication, without long- Performed By: #### U HCG #### [place] [address] [place] Monocytes (Bld) [#/Vol] 0.9 10*3/uL High 0.0-0.8 [facility] Comment on above: Order Comment: Reaso n for Exam Type 2 diabetes mellitus without complication, without long- Performed By: #### U HCG #### [address] Monocytes/100 WBC (Bld) 7.0 % Normal . [facility] Comment on above: Order Comment: Reaso n for Exam Type 2 diabetes mellitus without complication, without long- Performed By: #### U HCG #### [facility] [address] [place] [address] [place] Neutrophils (Bld) [#/Vol] 8.5 10*3/uL High 1.8-7.7 [facility] Comment on above: Order Comment: Reaso n for Exam Type 2 diabetes mellitus without complication, without long- Performed By: #### U HCG #### [facility] [address] [place] [address] [place] Neutrophils/100 WBC (Bld) 64.4 % Normal . [facility] Comment on above: Order Comment: Reaso n for Exam Type 2 diabetes mellitus without complication, without long- Performed By: #### U HCG #### [facility] [address] [place] [address] NRBC% 0.0 /100{WBC} Normal 0-0.5 [facility] Comment on above: Order Comment: Reaso n for Exam Type 2 diabetes mellitus without complication, without long- Performed By: #### U HCG #### [address] Platelet mean volume (Bld) [Entitic vol] 8.8 fL Normal 6.3-10.7 [facility] Comment on above: Order Comment: Reaso n for Exam Type 2 diabetes mellitus without complication, without long- Performed By: #### U HCG #### [place] [address] [place] Platelets (Bld) [#/Vol] 295 10*3/uL Normal 150-450 [facility] Comment on above: Order Comment: Reaso n for Exam Type 2 diabetes mellitus without complication, without long- Performed By: #### U HCG #### [facility] [address] [place] [address] [place] RBC (Bld) [#/Vol] 4.44 10*6/uL Normal 3.60-5.00 [facility] Comment on above: Order Comment: Reaso n for Exam Type 2 diabetes mellitus without complication, without long- Performed By: #### U HCG #### [facility] [address] [place] [address] [place] WBC (Bld) [#/Vol] 13.2 10*3/uL High 3.8-11.6 [facility] Comment on above: Order Comment: Reaso n for Exam Type 2 diabetes mellitus without complication, without long- Performed By: #### U HCG #### [facility] [address] [place] [address] Comprehensive Metabolic Pane mark 02-09-2023 Albumin [Mass/Vol] 4.4 g/dL Normal 3.5-5.7 [facility] Comment on above: Order Comment: Reaso n for Exam Type 2 diabetes mellitus without complication, without long- Performed By: #### U HCG #### [facility] [address] [place] [address] Albumin/Globulin [Mass ratio] 1.9 {ratio} Normal [facility] Comment on above: Order Comment: Reaso n for Exam Type 2 diabetes mellitus without complication, without long- Performed By: #### U HCG #### [facility] [address] [place] [address] ALP [Catalytic activity/Vol] 72 U/L Normal 34-104 [facility] Comment on above: Order Comment: Reaso n for Exam Type 2 diabetes mellitus without complication, without long- Performed By: #### U HCG #### [facility] [address] [place] [address] [place] ALT [Catalytic activity/Vol] 29 U/L Normal 7-52 [facility] Comment on above: Order Comment: Reaso n for Exam Type 2 diabetes mellitus without complication, without long- Performed By: #### U HCG #### [facility] [address] [place] [address] [place] Anion gap [Moles/Vol] 15.7 mmol/L High 6.0-15.0 [facility] Comment on above: Order Comment: Reaso n for Exam Type 2 diabetes mellitus without complication, without long- Performed By: #### U HCG #### [facility] [address] [place] [address] [place] AST [Catalytic activity/Vol] 27 U/L Normal 13-39 [facility] Comment on above: Order Comment: Reaso n for Exam Type 2 diabetes mellitus without complication, without long- Performed By: #### U HCG #### [facility] [address] [place] [address] [place] Bilirubin [Mass/Vol] 0.3 mg/dL Normal 0.3-1.0 [facility] Comment on above: Order Comment: Reaso n for Exam Type 2 diabetes mellitus without complication, without long- Performed By: #### U HCG #### [facility] [address] [place] [address] [place] Calcium [Mass/Vol] 9.3 mg/dL Normal 8.6-10.3 [facility] Comment on above: Order Comment: Reaso n for Exam Type 2 diabetes mellitus without complication, without long- Performed By: #### U HCG #### [facility] [address] [place] [address] [place] Chloride [Moles/Vol] 101 mmol/L Normal 98-107 [facility] Comment on above: Order Comment: Reaso n for Exam Type 2 diabetes mellitus without complication, without long- Performed By: #### U HCG #### [facility] [address] [place] [address] [place] CO2 [Moles/Vol] 23.8 mmol/L Normal 21.0-31.0 [facility] Comment on above: Order Comment: Reaso n for Exam Type 2 diabetes mellitus without complication, without long- Performed By: #### U HCG #### [facility] [address] [place] [address] [place] Creatinine [Mass/Vol] 0.75 mg/dL Normal 0.60-1.20 [facility] Comment on above: Order Comment: Reaso n for Exam Type 2 diabetes mellitus without complication, without long- Performed By: #### U HCG #### [facility] [address] [place] [address] [place] GFR/1.73 sq M.predicted MDRD (S/P/Bld) [Vol rate/Area] mL/min/{1.73_m2} Normal [facility] Comment on above: Order Comment: Reaso n for Exam Type 2 diabetes mellitus without complication, without long- Performed By: #### U HCG #### [facility] [address] [place] [address] [place] Globulin (S) [Mass/Vol] 2.3 g/dL Normal [facility] Comment on above: Order Comment: Reaso n for Exam Type 2 diabetes mellitus without complication, without long- Performed By: #### U HCG #### [facility] [address] Glucose [Mass/Vol] 286 mg/dL High 70-100 [facility] Comment on above: Order Comment: Reaso n for Exam Type 2 diabetes mellitus without complication, without long- Result Comment: [facility] Glucose Reference Range is dependent on time and content of last meal. Glucose of more than 200 mg/dL in a nonstressed, ambulatory subject supports the diagnosis of Diabetes Mellitus. ADA recommended reference range Performed By: #### U HCG #### [facility] [address] [place] [address] Potassium [Moles/Vol] 4.5 mmol/L Normal 3.5-5.1 [facility] Comment on above: Order Comment: Reaso n for Exam Type 2 diabetes mellitus without complication, without long- Performed By: #### U HCG #### [facility] [address] [place] [address] [place] Protein [Mass/Vol] 6.7 g/dL Normal 6.4-8.9 [facility] Comment on above: Order Comment: Reaso n for Exam Type 2 diabetes mellitus without complication, without long- Performed By: #### U HCG #### [facility] [address] [place] [address] [place] Sodium [Moles/Vol] 136 mmol/L Normal 136-145 [facility] Comment on above: Order Comment: Reaso n for Exam Type 2 diabetes mellitus without complication, without long- Performed By: #### U HCG #### [facility] [address] [place] [address] [place] Urea nitrogen [Mass/Vol] 10 mg/dL Normal 7-25 [facility] Comment on above: Order Comment: Reaso n for Exam Type 2 diabetes mellitus without complication, without long- Performed By: #### U HCG #### [facility] [address] [place] [id number] [facility] Creatinine [Mass/volume] in Serum or PlasmaOrdered By: Ajit Pettit on 02-09-2023 Creatinine [Mass/Vol] 0.75 mg/dL 0.60-1.20 [facility] Eosinophils Auto (Bld) [#/Vo l]Ordered By: Ajit Pettit on 02-09-2023 Eosinophils (Bld) [#/Vol] 0.1 10*3/uL 0.0-0.45 [facility] Eosinophils/100 WBC Auto (Bl d)Ordered By: Ajit Pettit on 02-09-2023 Eosinophils/100 WBC (Bld) 0.7 % . [facility] Erythrocyte distribution wid th Auto (RBC) [Ratio]Ordered By: Ajit Pettit on 02-09-2023 Erythrocyte distribution width (RBC) [Ratio] 13.1 % 11.9-15.3 [facility] Globulin Calc (S) [Mass/Vol] Ordered By: Ajit Pettit on 02-09-2023 Globulin (S) [Mass/Vol] 2.3 g/dL [facility] Glucose [Mass/volume] in Ser um or PlasmaOrdered By: Ajit Pettit on 02-09-2023 Glucose [Mass/Vol] 286 mg/dL 70-100 [facility] Comment on above: ADA recommended refe rence rangeRandom Glucose Reference Range is dependent on time and content of last meal. Glucose of more than 200 mg/dL in a nonstressed, ambulatory subject supports the diagnosis of Diabetes Mellitus. Hematocrit Auto (Bld) [Volum e fraction]Ordered By: Ajit Pettit on 02-09-2023 Hematocrit (Bld) [Volume fraction] 39.7 % 34.0-46.4 [facility] Hemoglobin [Mass/volume] in BloodOrdered By: Ajit Pettit on 02-09-2023 Hemoglobin (Bld) [Mass/Vol] 13.1 g/dL 11.8-15.4 [facility] LDL Cholesterol Measuredon 0 - LDL Cholesterol Measured 61 mg/dL Normal 0-100 [facility] Comment on above: Order Comment: Reaso n for Exam Type 2 diabetes mellitus without complication, without long- Result Comment: LDL ATP III CLASSIFICATION LDL less than 100 mg/dL Optimal LDL 100-129 mg/dL Near or above optimal LDL 130-159 mg/dL Borderline high LDL 160-189 mg/dL High LDL greater than 189 mg/dL Very high Performed By: #### U HCG #### [facility] [address] [place] [address] [place] Leukocytes [#/volume] correc cherie for nucleated erythrocytes in Blood by Automated counOrdered By: Ajit Pettit on 02-09-2023 WBC corrected for nucl RBC Auto (Bld) [#/Vol] 13.2 10*3/uL 3.8-11.6 [facility] Lipid Panelon 02-09-2023 Cholesterol [Mass/Vol] 166 mg/dL Normal 140-200 [facility] Comment on above: Order Comment: Reaso n for Exam Type 2 diabetes mellitus without complication, without long- Result Comment: Chol less than 200 mg/dl low risk Chol 201-239 mg/dl borderline risk Chol 240 mg/dl and greater high risk Performed By: #### U HCG #### [facility] [address] [place] [id number] [place] Cholesterol in HDL [Mass/Vol] 41 mg/dL Normal 35-85 [facility] Comment on above: Order Comment: Reaso n for Exam Type 2 diabetes mellitus without complication, without long- Result Comment: HDL CHOL ATP-III CLASSIFICATION Cardiovascular Risk HDL > or equal to 60 mg/dL LOW HDL < 40 mg/dL HIGH Performed By: #### U HCG #### [facility] [address] [place] [address] [place] Cholesterol.total/Suellen sterol in HDL [Mass ratio] 4.0 {ratio} Normal <5.0 [facility] Comment on above: Order Comment: Reaso n for Exam Type 2 diabetes mellitus without complication, without long- Performed By: #### U HCG #### [facility] [address] [place] [address] [place] LDL Cholesterol,Calculated Not performed Normal 0-100 [facility] Comment on above: Order Comment: Reaso n for Exam Type 2 diabetes mellitus without complication, without long- Performed By: #### U HCG #### [facility] [address] Triglyceride w/Reflex 485 mg/dL High 0-149 [facility] Comment on above: Order Comment: [...] be calculated and resulted. Performed By: #### U HCG #### [facility] [address] VLDL CHOLESTEROL 97 mg/dL Normal [facility] Comment on above: Order Comment: Reaso n for Exam Type 2 diabetes mellitus without complication, without long- Performed By: #### U HCG #### [facility] [address] Lymphocytes Auto (Bld) [#/Vo l]Ordered By: Ajit Pettit on 02-09-2023 Lymphocytes (Bld) [#/Vol] 3.6 10*3/uL 1.00-4.8 [facility] Lymphocytes/100 WBC Auto (Bl d)Ordered By: Ajit Pettit on 02-09-2023 Lymphocytes/100 WBC (Bld) 27.3 % . [facility] MCH Auto (RBC) [Entitic mass ]Ordered By: Ajit Pettit on 02-09-2023 MCH (RBC) [Entitic mass] 29.5 pg 24.7-34.3 [facility] MCHC Auto (RBC) [Mass/Vol]Or dered By: Ajit Pettit on 02-09-2023 MCHC (RBC) [Mass/Vol] 33.1 g/dL 32.0-35.0 [facility] MCV Auto (RBC) [Entitic vol] Ordered By: Ajit Pettit on 02-09-2023 MCV (RBC) [Entitic vol] 89.3 fL 80-100 [facility] Monocytes Auto (Bld) [#/Vol] Ordered By: Ajit Pettit on 02-09-2023 Monocytes (Bld) [#/Vol] 0.9 10*3/uL 0.0-0.8 [facility] Monocytes/100 WBC Auto (Bld) Ordered By: Ajit Pettit on 02-09-2023 Monocytes/100 WBC (Bld) 7.0 % . [facility] Neutrophils Auto (Bld) [#/Vo l]Ordered By: Ajit Pettit on 02-09-2023 Neutrophils (Bld) [#/Vol] 8.5 10*3/uL 1.8-7.7 [facility] Neutrophils/100 WBC Auto (Bl d)Ordered By: Ajit Pettit on 02-09-2023 Neutrophils/100 WBC (Bld) 64.4 % . [facility] No Panel InformationOrdered By: Ajit Pettit on 02-09-2023 Estimated GFR (CKD-EPI) > 60.0 mL/Min [facility] Creatinine Clearance (Chem N/A [facility] Nucleated erythrocytes [Pres ence] in Blood by Automated countOrdered By: Ajit Pettit on 02-09-2023 Nucleated RBC Auto Ql (Bld) 0.0 /100{WBC} 0-0.5 [facility] Platelet mean volume Auto (B ld) [Entitic vol]Ordered By: Ajit Pettit on 02-09-2023 Platelet mean volume (Bld) [Entitic vol] 8.8 fL 6.3-10.7 [facility] Platelets Auto (Bld) [#/Vol] Ordered By: Ajit Pettit on 02-09-2023 Platelets (Bld) [#/Vol] 295 10*3/uL 150-450 [facility] Potassium [Moles/volume] in Serum or PlasmaOrdered By: Ajit Pettit on 02-09-2023 Potassium [Moles/Vol] 4.5 mmol/L 3.5-5.1 [facility] Protein [Mass/volume] in Ser um or PlasmaOrdered By: Ajit Pettit on 02-09-2023 Protein [Mass/Vol] 6.7 g/dL 6.4-8.9 [facility] RBC Auto (Bld) [#/Vol]Ordere d By: Ajit Pettit on 02-09-2023 RBC (Bld) [#/Vol] 4.44 10*6/uL 3.60-5.00 [facility] Serum or plasma albumin/glob ulin mass ratioOrdered By: Ajit Pettit on 02-09-2023 Albumin/Globulin [Mass ratio] 1.9 {ratio} [facility] Serum or plasma anion gap de terminationOrdered By: Ajit Pettit on 02-09-2023 Anion gap [Moles/Vol] 15.7 mmol/L 6.0-15.0 [facility] Serum or plasma high density lipoprotein (HDL) cholesterol measurementOrdered By: Ajit Pettit on 02-09-2023 Cholesterol in HDL [Mass/Vol] 41 mg/dL 35-85 [facility] Comment on above: HDL CHOL ATP-III CLA SSIFICATION Cardiovascular RiskHDL > or equal to 60 mg/dL LOWHDL < 40 mg/dL HIGH Serum or plasma total choles terol/high density lipoprotein (HDL) cholesterol mass ratOrdered By: Ajit Pettit on 02-09-2023 Cholesterol.total/Suellen sterol in HDL [Mass ratio] 4.0 {ratio} <5.0 [facility] Sodium [Moles/volume] in Ser um or PlasmaOrdered By: Ajit Pettit on 02-09-2023 Sodium [Moles/Vol] 136 mmol/L 136-145 [facility] Thyroid Stimulating Hormoneo n 02-09-2023 TSH Qn 2.98 m[IU]/L Normal 0.45-5.33 [facility] Comment on above: Order Comment: Reaso n for Exam Type 2 diabetes mellitus without complication, without long- Result Comment: PERF ORMED BY: [facility] [address] [facility] [place] [address] PATHOLOGIST [employer] RIDGE HUERTA M.D. Performed By: #### U HCG #### [facility] [address] Thyrotropin [Units/volume] i n Serum or PlasmaOrdered By: Aijt Pettit on 02-09-2023 TSH Qn 2.98 m[IU]/L 0.45-5.33 [facility] Triglyceride [Mass/volume] i n Serum or PlasmaOrdered By: Ajit Pettit on 02-09-2023 Triglyceride [Mass/Vol] 485 mg/dL 0-149 [facility] Comment on above: If the triglyceride [...] on 02-09-2023 Urea nitrogen [Mass/Vol] 10 mg/dL 7 [facility] Urine Cultureon 02-09-2023 Bacteria identified Cx Nom (U) Reason for Exam Type 2 diabetes mellitus without complication, without long- Urine 75,000 colonies/ml mixed bacterial skin contaminants 2 Days PERFORMED BY: [place] [address] PATHOLOGIST [employer] TR[employer]IVER RIDGE HUERTA M.D. Normal [facility] Comment on above: Performed By: #### U HCG #### [address] Urine culture routineOrdered By: Ajit Pettit on 02-09-2023 Bacteria identified Cx Nom (U) 2 Days [facility] WBC Auto (Bld) [#/Vol]Ordere d By: Ajit Pettit on 02-09-2023 WBC (Bld) [#/Vol] 13.2 10*3/uL 3.8-11.6 [facility] ACETONE SERUMon 01-29-2023 ACETONE Negative Normal NEGATIVE [facility] Comment on above: Performed By: #### A CETON #### [facility] [address] [place] [address] [address] Vito Grimm CBC AUTO DIFFon 01-29-2023 BASO # 0.1 103/ul Normal 0.0-0.1 [facility] Comment on above: Performed By: #### C BC #### [facility] [address] [place] [address] Dr. Vito Grimm Basophils/100 WBC (Bld) 0.5 % Normal 0.2-2.0 [facility] Comment on above: Performed By: #### C BC #### [facility] [address] [place] [address] Dr. Vito Grimm EO # 0.1 103/ul Normal 0.0-0.7 [facility] Comment on above: Performed By: #### C BC #### [facility] [address] [place] [address] Dr. Vito Grimm Eosinophils/100 WBC (Bld) 0.7 % Critically low 0.9-7.0 [facility] Comment on above: Performed By: #### C BC #### [facility] [address] [place] [address] Dr. Vito Grimm Erythrocyte distribution width (RBC) [Ratio] 12.9 % Normal 11.0-15.0 [facility] Comment on above: Performed By: #### C BC #### [facility] [address] [place] [address] Dr. Vito Grimm Hematocrit (Bld) [Volume fraction] 39.0 % Normal 36.0-48.0 [facility] Comment on above: Performed By: #### C BC #### [facility] [address] [place] [address] Dr. Vito Grimm Hemoglobin (Bld) [Mass/Vol] 13.1 g/dL Normal 12.0-16.0 [facility] Comment on above: Performed By: #### C BC #### [facility] [address] [place] [address] Dr. Vito Grimm IG # 0.11 10e3/ul Critically high 0.00-0.03 [facility] Comment on above: Performed By: #### C BC #### [facility] [address] [place] [address] Dr. Vito Grimm IG % 0.8 % Critically high 0.0-0.5 [facility] Comment on above: Performed By: #### C BC #### [facility] [address] [place] [address] Dr. Vito Grimm LYMPH # 4.6 103/ul Critically high 1.2-3.8 [facility] Comment on above: Performed By: #### C BC #### [facility] [address] [place] [address] Dr. Vito Grimm Lymphocytes/100 WBC (Bld) 34.4 % Normal 20.5-60.0 [facility] Comment on above: Performed By: #### C BC #### [facility] [address] [place] [address] Dr. Vito Grimm MANUAL DIFF REQ NO Normal [facility] Comment on above: Performed By: #### C BC #### [facility] [address] [place] [address] Dr. Vito Grimm MCH (RBC) [Entitic mass] 29.9 pg Normal 26.7-34.0 [facility] Comment on above: Performed By: #### C BC #### [facility] [address] [place] [address] Dr. Vito Grimm MCHC (RBC) [Mass/Vol] 33.6 g/dL Normal 29.9-35.2 [facility] Comment on above: Performed By: #### C BC #### [facility] [address] [place] [address] Dr. Vito Grimm MCV (RBC) [Entitic vol] 89.0 fL Normal 81.0-99.0 [facility] Comment on above: Performed By: #### C BC #### [facility] [address] [place] [address] Dr. Vito Grimm MONO # 1.0 103/ul Critically high 0.3-0.8 [facility] Comment on above: Performed By: #### C BC #### [facility] [address] [place] [address] Dr. Vito Grimm Monocytes/100 WBC (Bld) 7.3 % Normal 1.7-12.0 [facility] Comment on above: Performed By: #### C BC #### [facility] [address] [place] [address] [address] Vito Grimm NEUT # 7.5 103/ul Critically high 1.4-6.5 [facility] Comment on above: Performed By: #### C BC #### [facility] [address] [address] [address] Vito Grimm Neutrophils/100 WBC (Bld) 56.3 % Normal 43.0-75.0 [facility] Comment on above: Performed By: #### C BC #### [facility] [address] [place] [address] Dr. Vito Grimm Platelet mean volume (Bld) [Entitic vol] 9.6 fL Normal 9.5-13.5 [facility] Comment on above: Performed By: #### C BC #### [facility] [address] [place] [address] Dr. Vito Grimm PLT 272 103/ul Normal 150-450 [facility] Comment on above: Performed By: #### C BC #### [facility] [address] [place] [address] Dr. Vito Grimm RBC 4.38 106/ul Normal 4.20-5.40 [facility] Comment on above: Performed By: #### C BC #### [facility] [address] [place] [address] Dr. Vito Grimm WBC 13.4 103/ul Critically high 4.0-11.0 [facility] Comment on above: Performed By: #### C BC #### [facility] [address] [place] [address] Dr. Vito Grimm ER URINE PROFILEon 3 Bilirubin Ql (U) Negative Normal NEGATIVE [facility] Comment on above: Performed By: #### E RUR #### [facility] [address] [place] [address] Dr. Vito Grimm Clarity (U) SL CLOUDY Abnormal CLEAR [facility] Comment on above: Performed By: #### E RUR #### [facility] [address] [place] [address] Dr. Vito Grimm Color (U) LT. YELLOW Normal YELLOW [facility] Comment on above: Performed By: #### E RUR #### [facility] [address] [place] [address] Dr. Vito ELIZABETH A micrscopic examina tion will be performed if indicated. Normal [facility] Comment on above: Performed By: #### E RUR #### [facility] [address] [place] [address] Dr. Vito Grimm Glucose Ql (U) >1000 Abnormal NEGATIVE [facility] Comment on above: Performed By: #### E RUR #### [facility] [address] [place] [address] Dr. Vito Grimm Hemoglobin Ql (U) Negative Normal NEGATIVE [facility] Comment on above: Performed By: #### E RUR #### [facility] [address] [place] [address] Dr. Vito Grimm Ketones Ql (U) Negative Normal NEGATIVE [facility] Comment on above: Performed By: #### E RUR #### [facility] [address] [place] [address] Dr. Vito Grimm LEUKOCYTES Negative Normal NEGATIVE [facility] Comment on above: Performed By: #### E RUR #### [facility] [address] [place] [address] Dr. Vito Grimm Nitrite Ql (U) Negative Normal NEGATIVE [facility] Comment on above: Performed By: #### E RUR #### [facility] [address] [place] [address] Dr. Vito Grimm pH (U) 5.5 [pH] Normal 5-[address] [facility] Comment on above: Performed By: #### E RUR #### [facility] [address] [place] [address] Dr. Vito Grimm SPEC GRAVITY 1.010 Normal 1.005-<=1. 025 [facility] Comment on above: Performed By: #### E RUR #### [facility] [address] [place] [address] Dr. Vito Grimm UA PROTEIN Negative Normal NEGATIVE/ TRACE [facility] Comment on above: Performed By: #### E RUR #### [facility] [address] [place] [address] Dr. Vito Grimm UR MICRO IND NOT INDICATED Normal [facility] Comment on above: Performed By: #### E RUR #### [facility] [address] [place] [address] Dr. Vito Grimm Urobilinogen Qn (U) 0.2 {Helen'U}/dL Normal 0.2 - 1. 0 [facility] Comment on above: Performed By: #### E RUR #### [facility] [address] [place] [address] Dr. Vito Grimm POINT OF CARE GLUCOSEon 01-03 Glucose [Mass/Vol] 279 mg/dL Critically high 74-106 T [facility] Comment on above: Performed By: #### P OCGLUC #### [facility] [address] [place] [address] Dr. Vito Grimm PROF 14(COMP METB)on 023 Albumin [Mass/Vol] 3.5 g/dL Normal 3.4-5.0 [facility] Comment on above: Performed By: #### C MATHIEU HSTROPN #### [facility] [address] [place] [address] Dr. Vito Grimm Albumin/Globulin [Mass ratio] 1.0 {ratio} Normal [facility] Comment on above: Performed By: #### C MATHIEU HSTROPN #### [facility] [address] [place] [address] Dr. Vito Grimm ALP [Catalytic activity/Vol] 85 U/L Normal 46-116 [facility] Comment on above: Performed By: #### C MATHIEU HSTROPN #### [facility] [address] [place] [address] Dr. Vito Grimm ALT [Catalytic activity/Vol] 28 U/L Normal 14-59 [facility] Comment on above: Performed By: #### C MATHIEU HSTROPN #### [facility] [address] [address] [address] Vito Grimm Anion gap [Moles/Vol] 15.9 mmol/L Normal Th e [facility] Comment on above: Performed By: #### C MP, HSTROPN #### [facility] [facility] [address] [address] [address] Vito Grimm AST [Catalytic activity/Vol] 16 U/L Normal 15-[address] [facility] Comment on above: Performed By: #### C MP, HSTROPN #### [facility] [address] [address] [address] Vito Grimm Bilirubin [Mass/Vol] 0.2 mg/dL Normal 0.2-1.0 [facility] Comment on above: Performed By: #### C MP, HSTROPN #### [facility] [address] [place] [address] Dr. Vito Grimm Calcium [Mass/Vol] 8.8 mg/dL Normal 8.5-10.1 [facility] Comment on above: Performed By: #### C MP, HSTROPN #### [facility] [address] [address] [address] Vito Grimm Chloride [Moles/Vol] 96 mmol/L Critically low 98-[address] [facility] Comment on above: Performed By: #### C MP, HSTROPN #### [facility] [address] [address] [address] Vito Grimm CO2 [Moles/Vol] 24.1 mmol/L Normal 21.0-32.[address] [facility] Comment on above: Performed By: #### C MP, HSTROPN #### [facility] [address] [address] [address] Vito Grimm Creatinine [Mass/Vol] 0.85 mg/dL Normal 0.55-1.02 [facility] Comment on above: Performed By: #### C MP, HSTROPN #### [facility] [address] [address] [address] Vito Grimm EGFR-AF VINCENTIAN >60 Normal >=[address] [facility] Comment on above: Performed By: #### C MP, HSTROPN #### [facility] [address] [address] [address] Vito Grimm EGFR-NON AF VINCENTIAN >60 Normal >=60 [facility] Comment on above: Performed By: #### C MP, HSTROPN #### [facility] [address] [address] [address] Vito Grimm Globulin (S) [Mass/Vol] 3.6 g/dL Normal [facility] Comment on above: Performed By: #### C MP, HSTROPN #### [facility] [address] [address] [address] Vito Grimm Glucose [Mass/Vol] 350 mg/dL Critically high 74-106 [facility] Comment on above: Performed By: #### C MP, HSTROPN #### [facility] [address] [place] [address] Dr. Vito Grimm Potassium [Moles/Vol] 4.0 mmol/L Normal 3.5-5.1 [facility] Comment on above: Performed By: #### C MP, HSTROPN #### [facility] [address] [place] [address] Dr. Vito Grimm Protein [Mass/Vol] 7.1 g/dL Normal 6.4-8.2 [facility] Comment on above: Performed By: #### C MP, HSTROPN #### [facility] [address] [address] [address] Vito Grimm Sodium [Moles/Vol] 132 mmol/L Critically low 136-145 [facility] Comment on above: Performed By: #### C MP, HSTROPN #### [facility] [address] [place] [address] Dr. Vito Grimm Urea nitrogen [Mass/Vol] 10.0 mg/dL Normal 7.0-18.0 [facility] Comment on above: Performed By: #### C MP, HSTROPN #### [facility] [address] [place] [address] Dr. Vito Grimm Urea nitrogen/Creatinine [Mass ratio] 11.8 mg/mg Normal [facility] Comment on above: Performed By: #### C MP, HSTROPN #### [facility] [address] [address] [address] Vito Grimm TROPONIN, HIGH SENSITIVITYon 01-29-2023 HSTROP <4.0 Normal 4.0-51.3 [facility] Comment on above: Result Comment: CUT- OFF POINTS HAVE BEEN ESTABLISHED BASED ON THE FOURTH UNIVERSAL DEFINITIONS OF MYOCARDIAL INFARCTION. THE UPPER REFERENCE LIMIT (URL) OF TROPONIN, DEFINED THE 99TH PERCENTILE OF cTnI DISTRIBUTION IN A REFERENCE POPULATION, HAS BEEN CONFIRMED THE DECISION THRESHOLD FOR PR DIAGNOSIS. Performed By: #### C MP, HSTROPN #### [facility] [address] [place] [address] Dr. Vito Grimm HCG ( test) IA.rapi d Ql (U)Ordered By: Kyler Miramontes on 11-18-2022 HCG ( test) Ql (U) Negative [facility] HCG,Urineon 11-18-2022 Beta HCG ( test) Ql (U) Negative Normal [facility] Comment on above: Result Comment: PERF ORMED BY: [facility] [address] [place] [address] PATHOLOGIST OIL TRUCK DRIVER RIDGE HUERTA M.D. Performed By: #### U HCG ####[facility] [id number] [facility] CBC AUTO DIFFon 11-12-2022 BASO # 0.1 103/ul Normal 0.0-0.1 [facility] Comment on above: Performed By: #### C MP, HSTROPN #### [facility] [address] [address] [address] Vito Grimm Basophils/100 WBC (Bld) 0.6 % Normal 0.2-2.0 [facility] Comment on above: Performed By: #### C MP, HSTROPN #### [facility] [address] [place] [address] Dr. Vito Grimm EO # 0.2 103/ul Normal 0.0-0.7 [facility] Comment on above: Performed By: #### C MATHIEU, HSTROPN #### [facility] [address] [place] [address] Dr. Vito Grimm Eosinophils/100 WBC (Bld) 1.1 % Normal 0.9-7.0 [facility] Comment on above: Performed By: #### C MATHIEU, HSTROPN #### [facility] [address] [place] [address] Dr. Vito Grimm Erythrocyte distribution width (RBC) [Ratio] 12.6 % Normal 11.0-15.0 [facility] Comment on above: Performed By: #### C MATHIEU, HSTROPN #### [facility] [address] [place] [address] Dr. Vito Grimm Hematocrit (Bld) [Volume fraction] 39.7 % Normal 36.0-48.0 [facility] Comment on above: Performed By: #### C MATHIEU HSTROPN #### [facility] [address] [place] [address] Dr. Vito Grimm Hemoglobin (Bld) [Mass/Vol] 12.9 g/dL Normal 12.0-16.0 [facility] Comment on above: Performed By: #### C MATHIEU HSTROPN #### [facility] [address] [place] [address] Dr. Vito Grimm IG # 0.07 10e3/ul Critically high 0.00-0.03 [facility] Comment on above: Performed By: #### C MATHIEU, HSTROPN #### [facility] [address] [place] [address] Dr. Vito Grimm IG % 0.5 % Normal 0.0-0.5 [facility] Comment on above: Performed By: #### C MATHIEU, HSTROPN #### [facility] [address] [place] [address] Dr. Vito Grimm LYMPH # 5.3 103/ul Critically high 1.2-3.8 [facility] Comment on above: Performed By: #### C MATHIEU, HSTROPN #### [facility] [address] [place] [address] Dr. Vito Grimm Lymphocytes/100 WBC (Bld) 38.4 % Normal 20.5-60.0 [facility] Comment on above: Performed By: #### C MP, HSTROPN #### [facility] [address] [place] [address] Dr. Vito Grimm MANUAL DIFF REQ NO Normal [facility] Comment on above: Performed By: #### C MP, HSTROPN #### [facility] [address] [place] [address] Dr. Vito Grimm MCH (RBC) [Entitic mass] 29.7 pg Normal 26.7-34.0 [facility] Comment on above: Performed By: #### C MP, HSTROPN #### [facility] [address] [place] [address] Dr. Vito Grimm MCHC (RBC) [Mass/Vol] 32.5 g/dL Normal 29.9-35.2 [facility] Comment on above: Performed By: #### C MP, HSTROPN #### [facility] [address] [place] [address] Dr. Vito Grimm MCV (RBC) [Entitic vol] 91.5 fL Normal 81.0-99.0 [facility] Comment on above: Performed By: #### C MP, HSTROPN #### [facility] [address] [place] [address] Dr. Vito Grimm MONO # 1.0 103/ul Critically high 0.3-0.8 [facility] Comment on above: Performed By: #### C MP, HSTROPN #### [facility] [address] [place] [address] Dr. Vito Grimm Monocytes/100 WBC (Bld) 7.3 % Normal 1.7-12.0 [facility] Comment on above: Performed By: #### C MP, HSTROPN #### [facility] [address] [place] [address] Dr. Vito Grimm NEUT # 7.2 103/ul Critically high 1.4-6.5 [facility] Comment on above: Performed By: #### C MP, HSTROPN #### [facility] [address] [place] [address] Dr. Vito Grimm Neutrophils/100 WBC (Bld) 52.1 % Normal 43.0-75.0 [facility] Comment on above: Performed By: #### C MATHIEU, HSTROPN #### [facility] [address] [place] [address] Dr. Vito Grimm Platelet mean volume (Bld) [Entitic vol] 9.4 fL Critically low 9.5-13.5 [facility] Comment on above: Performed By: #### C MATHIEU, HSTROPN #### [facility] [address] [place] [address] Dr. Vito Grimm PLT 297 103/ul Normal 150-[address] [facility] Comment on above: Performed By: #### C MATHIEU HSTROPN #### [facility] [address] [place] [address] Dr. Vito Grimm RBC 4.34 106/ul Normal 4.20-5.[address] [facility] Comment on above: Performed By: #### C MATHIEU HSTROPN #### [facility] [address] [place] [address] Dr. Vito Grimm WBC 13.9 103/ul Critically high 4.0-11.[address] [facility] Comment on above: Performed By: #### C MATHIEU, HSTROPN #### [facility] [address] [place] [address] Dr. Vito Grimm DEPAKENE/ VALPROIC ACIDon DEPAKENE 55.9 ug/ml Normal 50.0-100.[address] [facility] Comment on above: Performed By: #### V ALP #### [facility] [address] [place] [address] Dr. Vito Grimm LACTATE/LACTIC ACIDon 2022 Lactate [Moles/Vol] 3.6 mmol/L Critically high 0.4-1.[address] [facility] Comment on above: Performed By: #### C MP, HSTROPN #### [facility] [address] [place] [address] Dr. Vito Grimm PROF 14(COMP METB)on 023 Albumin [Mass/Vol] 3.6 g/dL Normal 3.4-5.0 [facility] Comment on above: Performed By: #### C MP, HSTROPN #### [facility] [address] [place] [address] Dr. Vito Grimm Albumin/Globulin [Mass ratio] 1.1 {ratio} Normal [facility] Comment on above: Performed By: #### C MP, HSTROPN #### [facility] [address] [place] [address] Dr. Vito Grimm ALP [Catalytic activity/Vol] 57 U/L Normal 46-116 [facility] Comment on above: Performed By: #### C MP, HSTROPN #### [facility] [address] [place] [address] Dr. Vito Grimm ALT [Catalytic activity/Vol] 23 U/L Normal 14-59 [facility] Comment on above: Performed By: #### C MATHIEU, HSTROPN #### [facility] [address] [place] [address] Dr. Vito Grimm Anion gap [Moles/Vol] 17.0 mmol/L Normal [facility] Comment on above: Performed By: #### C MP, HSTROPN #### [facility] [address] [place] [address] Dr. Vito Grimm AST [Catalytic activity/Vol] 16 U/L Normal 15-[address] [facility] Comment on above: Performed By: #### C MP, HSTROPN #### [facility] [address] [place] [address] Dr. Vito Grimm Bilirubin [Mass/Vol] 0.1 mg/dL Critically low 0.2-1.0 [facility] Comment on above: Performed By: #### C MP, HSTROPN #### [facility] [address] [place] [address] Dr. Vito Grimm Calcium [Mass/Vol] 8.8 mg/dL Normal 8.5-10.1 [facility] Comment on above: Performed By: #### C MATHIEU, HSTROPN #### [facility] [address] [address] [address] Vito Grimm Chloride [Moles/Vol] 101 mmol/L Normal 98-107 [facility] Comment on above: Performed By: #### C MATHIEU, HSTROPN #### [facility] [address] [address] [address] Vito Grimm CO2 [Moles/Vol] 23.5 mmol/L Normal 21.0-32.0 [facility] Comment on above: Performed By: #### C MATHIEU, HSTROPN #### [facility] [address] [place] [address] Dr. Vito Grimm Creatinine [Mass/Vol] 0.72 mg/dL Normal 0.55-1.02 [facility] Comment on above: Performed By: #### C MATHIEU, HSTROPN #### [facility] [address] [place] [address] Dr. Vito Grimm EGFR-AF VINCENTIAN >60 Normal >=60 [facility] Comment on above: Performed By: #### C MATHIEU, HSTROPN #### [facility] [address] [place] [address] Dr. Vito Grimm EGFR-NON AF VINCENTIAN >60 Normal >=60 [facility] Comment on above: Performed By: #### C MATHIEU, HSTROPN #### [facility] [address] [place] [address] Dr. Vito Grimm Globulin (S) [Mass/Vol] 3.4 g/dL Normal [facility] Comment on above: Performed By: #### C MP, HSTROPN #### [facility] [address] [place] [address] Dr. Vito Grimm Glucose [Mass/Vol] 146 mg/dL Critically high 74-106 [facility] Comment on above: Performed By: #### C MATHIEU, HSTROPN #### [facility] [address] [address] [address] Vito Grimm Potassium [Moles/Vol] 4.5 mmol/L Normal 3.5-5.1 [facility] Comment on above: Performed By: #### C MP, HSTROPN #### [facility] [address] [address] [address] Vito Grimm Protein [Mass/Vol] 7.0 g/dL Normal 6.4-8.2 [facility] Comment on above: Performed By: #### C MP, HSTROPN #### [facility] [address] [address] [address] Vito Grimm Sodium [Moles/Vol] 137 mmol/L Normal 136-145 [facility] Comment on above: Performed By: #### C MP, HSTROPN #### [facility] [address] [address] [address] Vito Grimm Urea nitrogen [Mass/Vol] 11.0 mg/dL Normal 7.0-18.0 [facility] Comment on above: Performed By: #### C MP, HSTROPN #### [facility] [address] [address] [address] Vito Grimm Urea nitrogen/Creatinine [Mass ratio] 15.3 mg/mg Normal [facility] Comment on above: Performed By: #### C MP, HSTROPN #### [facility] [address] [address] [address] Vito Grimm A1C with Estimated Average [facility] [place]-05-2022 Glucose [Mass/Vol] 143 mg/dL Normal [facility] Comment on above: Order Comment: Reaso n for Exam Type 2 diabetes mellitus without complication, without long- Result Comment: PERF ORMED BY: [place] [address] PATHOLOGIST OIL TRUCK DRIVER RIDGE HUERTA M.D. Performed By: #### L DOUG SIMENTAL #### [address] HbA1c (Bld) [Mass fraction] 6.6 % High 4.3-5.6 [facility] Comment on above: Order Comment: Reaso n for Exam Type 2 diabetes mellitus without complication, without long- Result Comment: Incr eased risk for diabetes: 5.7 - 6.4 diabetes: >6.4 glycemic control for adults with diabetes: <7.0 Performed By: #### L DOUG SIMENTAL #### [facility] [address] Albumin [Mass/volume] in Ser um or PlasmaOrdered By: Ajit Pettit on 11-05-2022 Albumin [Mass/Vol] 4.2 g/dL 3.2-5.5 [facility] Basophils Auto (Bld) [#/Vol] Ordered By: Ajit Pettit on 11-05-2022 Basophils (Bld) [#/Vol] 0.1 10*3/uL 0.0-0.2 [facility] Basophils/100 WBC Auto (Bld) Ordered By: Ajit Pettit on 11-05-2022 Basophils/100 WBC (Bld) 0.8 % . F [facility] Cholesterol [Mass/volume] in Serum or PlasmaOrdered By: Ajit Pettit on 11-05-2022 Cholesterol [Mass/Vol] 174 mg/dL 140-200 [facility] Comment on above: Chol less than 200 m g/dl low riskChol 201-239 mg/dl borderline riskChol 240 mg/dl and greater high risk Cholesterol in LDL Calc [Mas s/Vol]Ordered By: Ajit Pettit on 11-05-2022 Cholesterol in LDL [Mass/Vol] 66 mg/dL 0-100 [facility] Comment on above: LDL ATP III CLASSIFI CATIONLDL less than 100 mg/dL OptimalLDL 100-129 mg/dL Near or above optimalLDL 130-159 mg/dL Borderline highLDL 160-189 mg/dL HighLDL greater than 189 mg/dL Very high Cholesterol in VLDL Calc [Ma ss/Vol]Ordered By: Ajit Pettit on 11-05-2022 Cholesterol in VLDL [Mass/Vol] 66 mg/dL [facility] Comprehensive Metabolic Pane mark 11-05-2022 Albumin [Mass/Vol] 4.2 g/dL Normal 3.2-5.5 [facility] Comment on above: Order Comment: Reaso n for Exam Type 2 diabetes mellitus without complication, without long- Reason for Exam Vitamin D deficiency Performed By: #### L ELLIS SIMENTALLD #### [facility] [address] [place] [address] [facility] Albumin/Globulin [Mass ratio] 1.6 {ratio} Normal [facility] Comment on above: Order Comment: Reaso n for Exam Type 2 diabetes mellitus without complication, without long- Reason for Exam Vitamin D deficiency Performed By: #### L ACTELLIS WHYTELD #### [facility] [address] [place] [address] [place] ALP [Catalytic activity/Vol] 52 U/L Normal 32-92 [facility] Comment on above: Order Comment: Reaso n for Exam Type 2 diabetes mellitus without complication, without long- Reason for Exam Vitamin D deficiency Performed By: #### L ACTELLIS WHYTELD #### [facility] [address] [place] [address] [place] ALT [Catalytic activity/Vol] 16 U/L Normal 10-60 [facility] Comment on above: Order Comment: Reaso n for Exam Type 2 diabetes mellitus without complication, without long- Reason for Exam Vitamin D deficiency Performed By: #### L ACTELLIS WHYTELD #### [facility] [address] [place] [address] [facility] Anion gap [Moles/Vol] 14.2 mmol/L Normal 6.0-15.0 [facility] Comment on above: Order Comment: Reaso n for Exam Type 2 diabetes mellitus without complication, without long- Reason for Exam Vitamin D deficiency Performed By: #### L ACTELLIS WHYTELD #### [facility] [address] [place] [address] [place] AST [Catalytic activity/Vol] 20 U/L Normal 10-42 [facility] Comment on above: Order Comment: Reaso n for Exam Type 2 diabetes mellitus without complication, without long- Reason for Exam Vitamin D deficiency Performed By: #### L ACTPATO CUBLD #### [facility] [address] [place] [address] [place] Bilirubin [Mass/Vol] 0.3 mg/dL Normal 0.3-1.2 [facility] Comment on above: Order Comment: Reaso n for Exam Type 2 diabetes mellitus without complication, without long- Reason for Exam Vitamin D deficiency Performed By: #### L ACTELLIS WHYTELD #### [facility] [address] [place] [address] [facility] Calcium [Mass/Vol] 9.3 mg/dL Normal 8.2-10.2 [facility] Comment on above: Order Comment: Reaso n for Exam Type 2 diabetes mellitus without complication, without long- Reason for Exam Vitamin D deficiency Performed By: #### L ACTPATO CUBLD #### [facility] [address] [place] [address] [place] Chloride [Moles/Vol] 99 mmol/L Normal 95-114 [facility] Comment on above: Order Comment: Reaso n for Exam Type 2 diabetes mellitus without complication, without long- Reason for Exam Vitamin D deficiency Performed By: #### L ACTPATO CUBLD #### [facility] [address] [place] [address] [facility] CO2 [Moles/Vol] 23.1 mmol/L Normal 22.0-30.0 [facility] Comment on above: Order Comment: Reaso n for Exam Type 2 diabetes mellitus without complication, without long- Reason for Exam Vitamin D deficiency Performed By: #### L ACTPATO CUBLD #### [facility] [address] [place] [address] [place] Creatinine [Mass/Vol] 0.57 mg/dL Normal 0.44-1.03 [facility] Comment on above: Order Comment: Reaso n for Exam Type 2 diabetes mellitus without complication, without long- Reason for Exam Vitamin D deficiency Performed By: #### L ACTIC CUBLD #### [facility] [address] [place] [address] [place] Estimated GFR ( Katalina > 60 Normal [facility] Comment on above: Order Comment: Reaso n for Exam Type 2 diabetes mellitus without complication, without long- Reason for Exam Vitamin D deficiency Result Comment: GFR estimated reference range: According to KDOQI guidelines, <60 ml/min/1.73m2 is sufficient to diagnose a patient with chronic kidney disease. Performed By: #### L DOUG SIMENTAL #### [facility] [id number] [facility] Estimated GFR (Non- Am > 60 Normal [facility] Comment on above: Order Comment: Reaso n for Exam Type 2 diabetes mellitus without complication, without long- Reason for Exam Vitamin D deficiency Performed By: #### L DOUG SIMENTAL #### [facility] [address] [place] [address] [place] Globulin (S) [Mass/Vol] 2.6 g/dL Normal [facility] Comment on above: Order Comment: Reaso n for Exam Type 2 diabetes mellitus without complication, without long- Reason for Exam Vitamin D deficiency Performed By: #### L DOUG SIMENTAL #### [facility] [id number] [facility] Glucose [Mass/Vol] 96 mg/dL Normal 70-100 [facility] Comment on above: Order Comment: Reaso n for Exam Type 2 diabetes mellitus without complication, without long- Reason for Exam Vitamin D deficiency Result Comment: [facility] Glucose Reference Range is dependent on time and content of last meal. Glucose of more than 200 mg/dL in a nonstressed, ambulatory subject supports the diagnosis of Diabetes Mellitus. ADA recommended reference range Performed By: #### L DOUG SIMENTAL #### [facility] [id number] [facility] Potassium [Moles/Vol] 4.3 mmol/L Normal 3.5-5.1 [facility] Comment on above: Order Comment: Reaso n for Exam Type 2 diabetes mellitus without complication, without long- Reason for Exam Vitamin D deficiency Performed By: #### L DOUG SIMENTAL #### [facility] [address] [place] [address] [place] Protein [Mass/Vol] 6.8 g/dL Normal 6.1-7.9 [facility] Comment on above: Order Comment: Reaso n for Exam Type 2 diabetes mellitus without complication, without long- Reason for Exam Vitamin D deficiency Performed By: #### L DOUG SIMENTAL #### [facility] [address] [place] [address] [place] Sodium [Moles/Vol] 132 mmol/L Low 136-146 [facility] Comment on above: Order Comment: Reaso n for Exam Type 2 diabetes mellitus without complication, without long- Reason for Exam Vitamin D deficiency Performed By: #### L ACTIC, CUBLD #### [facility] [address] [id number] [place] Urea nitrogen [Mass/Vol] 7 mg/dL Low 9-23 [facility] Comment on above: Order Comment: Reaso n for Exam Type 2 diabetes mellitus without complication, without long- Reason for Exam Vitamin D deficiency Performed By: #### L ACTIC, CUBLD #### [facility] [address] [place] [address] [place] Creatinine and Glomerular fi ltration rate.predicted panel (S/P/Bld)Ordered By: Ajit Pettit on 11-05-2022 Creatinine [Mass/Vol] 0.57 mg/dL 0.44-1.03 [facility] Eosinophils Auto (Bld) [#/Vo l]Ordered By: Ajit Pettit on 11-05-2022 Eosinophils (Bld) [#/Vol] 0.1 10*3/uL 0.0-0.45 [facility] Eosinophils/100 WBC Auto (Bl d)Ordered By: Ajit Pettit on 11-05-2022 Eosinophils/100 WBC (Bld) 0.7 % . [facility] Erythrocyte distribution wid th Auto (RBC) [Ratio]Ordered By: Ajit Pettit on 11-05-2022 Erythrocyte distribution width (RBC) [Ratio] 13.5 % 11.9-15.3 [facility] Estimated glomerular filtrat ion rate (GFR) non- AmericanOrdered By: Ajit Pettit on 11-05-2022 GFR/1.73 sq M.predicted among non-blacks MDRD (S/P/Bld) [Vol rate/Area] > 60 mL/Min [facility] Globulin Calc (S) [Mass/Vol] Ordered By: Ajit Pettit on 11-05-2022 Globulin (S) [Mass/Vol] 2.6 g/dL [facility] Glucose mean value [Mass/vol ume] in Blood Estimated from glycated hemoglobinOrdered By: Ajit Pettit on 11-05-2022 Average glucose Estimated from glycated hemoglobin (Bld) [Mass/Vol] 143 mg/dL [facility] HPV 16+18+31+33+35+39+45+51+ 52+56+58+59+68 DNA cervix probe + signal amplificOrdered By: Ajit Pettit on 11-05-2022 HPV 16+18+31+33+35+39+45+51 +52+56+58+59+68 DNA Probe+sig amp Ql (Cvx) Positive Negative [facility] Comment on above: This nucleic acid am plification test detects fourteen high-risk HPV types (16,18,31,33,35,39,45,51,52,56,58,59,66,68)without differentiation. Hematocrit Auto (Bld) [Volum e fraction]Ordered By: Ajit Pettit on 11-05-2022 Hematocrit (Bld) [Volume fraction] 40.1 % 34.0-46.4 [facility] Hemoglobin A1c percentageOrd ered By: Ajit Pettit on 11-05-2022 HbA1c (Bld) [Mass fraction] 6.6 % 4.3-5.6 [facility] Comment on above: Increased risk for d iabetes: 5.7 - 6.4diabetes: >6.4glycemic control for adults with diabetes: <7.0 Hemoglobin [Mass/volume] in BloodOrdered By: Ajit Pettit on 11-05-2022 Hemoglobin (Bld) [Mass/Vol] 13.2 g/dL 11.8-15.4 [facility] IGP,Aptima HPV,CtNg Age Gdln on 11-05-2022 IGP, Age Gdln Note Normal . [facility] Comment on above: Order Comment: Kay borja for Exam Cervical cancer screening Specimen Comment: [id number] Result Comment: TEST S RESULT FLAG UNITS REF RANGE LAB Clinician Provided Cytology Information No. of containers..01 ThinPrep Vial Age Brian TATE Monisha... FLAG LEGEND: L-Low Normal,H-High Normal,LL-Alert Low,HH-Alert High <-Panic Low,>-Panic High,A-Abnormal,AA-Critical Abnormal Performed at: 01 =G [facility] [address] Breanna Clark MD, Performed By: #### DOUG STONE #### [facility] [address] [place] [address] PAP HPV 16 Negative Normal Negative [facility] Comment on above: Order Comment: Reaso n for Exam Cervical cancer screening Specimen Comment: [id number] Performed By: #### DOUG STONE #### [facility] [address] [place] [address] PAP HPV 18,45 Negative Normal Negative [facility] Comment on above: Order Comment: Reaso n for Exam Cervical cancer screening Specimen Comment: [id number] Result Comment: Perf ormed at: =G - [facility] [id number] Commercial Real Estate Appraiser: Breanna Clark MD, Phone: [phone] Performed at: - [facility] [id number] Commercial Real Estate Appraiser: Breanna Clark MD, Phone: [phone] PERFORMED BY: [place] [address] PATHOLOGIST OIL TRUCK DRIVER RIDGE HUERTA M.D. Performed By: #### L ACTIC, CUBLD #### [facility] [address] [id number] [facility] PAP HPV HR Positive Critically abnormal Negative [facility] Comment on above: Order Comment: Reaso n for Exam Cervical cancer screening Specimen Comment: [id number] Result Comment: This nucleic acid amplification test detects fourteen high- risk HPV types (16,18,31,33,35,39,45,51,52,56,58,59,66,68) without differentiation. Performed By: #### L ACTIC, CUBLD #### [facility] [address] [id number] [facility] Pap Image Guided Note Normal . [facility] Comment on above: Order Comment: Reaso n for Exam Cervical cancer screening Specimen Comment: [id number] Result Comment: TEST S RESULT FLAG UNITS REF RANGE LAB DIAGNOSIS: 02 NEGATIVE FOR INTRAEPITHELIAL LESION OR MALIGNANCY. THIS SPECIMEN WAS RESCREENED PART OF OUR AN/SYQ 13 NAV/C2 OPERATOR PROGRAM. Specimen adequacy: 02 Satisfactory for evaluation. Endocervical and/or squamous metaplastic cells (endocervical component) are present. Performed by: 02 Larry Mirza, Hollow Ware Maker (ASCP) QC reviewed by: 02 Sammie Thomason, Supervisory Hollow Ware Maker (ASCP) . 02 Note: Note 02 The [...] High,A-Abnormal,AA-Critical Abnormal Performed at: 02 WB [facility] [place] [address] [place] [address] Breanna Clark MD, Performed By: #### L DOUG SIMENTAL #### [facility] [address] [place] [address] Laboratory - Microbiology an d Antimicrobial susceptibilityOrdered By: Ajit Pettit on 11-05-2022 N. gonorrhoeae DNA NAYELY+probe Ql (Unsp spec) Negative Negative [facility] Comment on above: Performed at: =G - [facility] [address] [place], [place] [id number] Director: Breanna Clark MD, Phone: [phone] Leukocytes [#/volume] correc cherie for nucleated erythrocytes in Blood by Automated counOrdered By: Ajit Pettit on 11-05-2022 WBC corrected for nucl RBC Auto (Bld) [#/Vol] 13.7 10*3/uL 3.8-11.6 [facility] Lipid Panelon 11-05-2022 Cholesterol [Mass/Vol] 174 mg/dL Normal 140-200 [facility] Comment on above: Order Comment: Reaso n for Exam Type 2 diabetes mellitus without complication, without long- Reason for Exam Vitamin D deficiency Result Comment: Chol less than 200 mg/dl low risk Chol 201-239 mg/dl borderline risk Chol 240 mg/dl and greater high risk Performed By: #### L DOUG SIMENTAL #### [facility] [address] [place] [address] Cholesterol in HDL [Mass/Vol] 42 mg/dL Normal 35-85 [facility] Comment on above: Order Comment: Reaso n for Exam Type 2 diabetes mellitus without complication, without long- Reason for Exam Vitamin D deficiency Result Comment: HDL CHOL ATP-III CLASSIFICATION Cardiovascular Risk HDL > or equal to 60 mg/dL LOW HDL < 40 mg/dL HIGH Performed By: #### L DOUG SIMENTAL #### [facility] [address] Cholesterol.total/Suellen sterol in HDL [Mass ratio] 4.1 {ratio} Normal <5.0 [facility] Comment on above: Order Comment: Reaso n for Exam Type 2 diabetes mellitus without complication, without long- Reason for Exam Vitamin D deficiency Performed By: #### L DOUG SIMENTAL #### [facility] [address] LDL Cholesterol,Calculated 66 mg/dL Normal 0-100 [facility] Comment on above: Order Comment: Reaso n for Exam Type 2 diabetes mellitus without complication, without long- Reason for Exam Vitamin D deficiency Result Comment: LDL ATP III CLASSIFICATION LDL less than 100 mg/dL Optimal LDL 100-129 mg/dL Near or above optimal LDL 130-159 mg/dL Borderline high LDL 160-189 mg/dL High LDL greater than 189 mg/dL Very high Performed By: #### L DOUG SIMENTAL #### [facility] [address] Triglyceride w/Reflex 330 mg/dL High 35-149 [facility] Comment on above: Order Comment: [...] Prevention (CDC) test method. Performed By: #### L DOUG SIMENTAL #### [facility] [address] [id number] [facility] VLDL CHOLESTEROL 66 mg/dL Normal [facility] Comment on above: Order Comment: Reaso n for Exam Type 2 diabetes mellitus without complication, without long- Reason for Exam Vitamin D deficiency Performed By: #### L ACTIC, CUBLD #### [facility] [address] [id number] [facility] Lymphocytes Auto (Bld) [#/Vo l]Ordered By: Ajit Pettit on 11-05-2022 Lymphocytes (Bld) [#/Vol] 5.1 10*3/uL 1.00-4.8 [facility] Lymphocytes/100 WBC Auto (Bl d)Ordered By: Ajit Pettit on 11-05-2022 Lymphocytes/100 WBC (Bld) 37.3 % . [facility] MCH Auto (RBC) [Entitic mass ]Ordered By: Ajit Pettit on 11-05-2022 MCH (RBC) [Entitic mass] 29.5 pg 24.7-34.3 [facility] MCHC Auto (RBC) [Mass/Vol]Or dered By: Ajit Pettit on 11-05-2022 MCHC (RBC) [Mass/Vol] 32.8 g/dL 32.0-35.0 [facility] MCV Auto (RBC) [Entitic vol] Ordered By: Ajit Pettit on 11-05-2022 MCV (RBC) [Entitic vol] 90.0 fL 80-100 [facility] Microcytes LM Ql (Bld)Ordere d By: Ajit Pettit on 11-05-2022 Microcytes Ql (Bld) Slight [facility] Monocytes Auto (Bld) [#/Vol] Ordered By: Ajit Pettit on 11-05-2022 Monocytes (Bld) [#/Vol] 1.1 10*3/uL 0.0-0.8 [facility] Monocytes/100 WBC Auto (Bld) Ordered By: Ajit Pettit on 11-05-2022 Monocytes/100 WBC (Bld) 8.3 % . [facility] Neutrophils Auto (Bld) [#/Vo l]Ordered By: Ajit Pettit on 11-05-2022 Neutrophils (Bld) [#/Vol] 7.3 10*3/uL 1.8-7.7 [facility] Neutrophils/100 WBC Auto (Bl d)Ordered By: Ajit Pettit on 11-05-2022 Neutrophils/100 WBC (Bld) 52.9 % . [facility] No Panel InformationOrdered By: Ajit Pettit on 11-05-2022 25-Hydroxy Vitamin D Total 28.8 ng/mL 30-100 [facility] Comment on above: VITAMIN D STATUS 25( OH)VITAMIN D RANGE (ng/mL) Deficient <20 Insufficient 20 to <30Sufficient 30 to 100Reference: Jovanni MF,Dominique NC, Gillian NINA, et al. Evaluation,treatment, and prevention of vitamin D deficiency; an Endocrine Society clinical practice guideline. JCEM. 2010; 96(7):1911-30. Luz Elena albicans (NAYELY) Negative Negative [facility] Comment on above: This test was develo ped and its performance characteristicsdetermined by [employer]. It has not been cleared orapproved by the Food and Drug Administration. Luz Elena glabrata (NAYELY) Negative Negative [facility] Comment on above: This test was develo ped and its performance characteristicsdetermined by [employer]. It has not been cleared orapproved by the Food and Drug Administration. Chlamydia trachomatis (NAYELY) (LAB) Negative Negative [facility] Estimated GFR () > 60 mL/Min [facility] Comment on above: GFR estimated refere nce range: According to KDOQI guidelines, <60 ml/min/1.73m2 is sufficient to diagnose a patient with chronic kidney disease. Human Papilloma Virus Type 16 Negative Negative [facility] Human Papilloma Virus Type 18/45 Negative Negative [facility] Comment on above: Performed at: =G - [facility] [address] [id number] Director: Breanna Clark MD, Phone: [phone] at: WB - [facility] [address] [id number] Director: Breanna Clark MD, Phone: [phone] IG Pap w/Ct-Ng Age Based (Off-Site) Note . [facility] Comment on above: TESTS RESULT FLAG UN ITS REF RANGE LAB - Clinician Provided Cytology Information No. of containers..01 ThinPrep Lupillo Bearden... FLAG LEGEND: L-Low Normal,H-High Normal,LL-Alert Low,HH-Alert High <-Panic Low,>-Panic High,A-Abnormal,AA-Critical Abnormal ------Performed at:01 [facility] [address] [place] [address] Breanna Clark MD, Pharmacy Creatinine Clearance (Chem N/A [facility] Thin Prep Pap Comment Note . [facility] Comment on above: TESTS RESULT FLAG UN ITS REF RANGE LAB -DIAGNOSIS: 02 NEGATIVE FOR INTRAEPITHELIAL LESION OR MALIGNANCY. THIS SPECIMEN WAS RESCREENED PART OF OUR AN/SYQ 13 NAV/C2 OPERATOR PROGRAM.Specimen adequacy: 02 Satisfactory for evaluation. Endocervical and/or squamous metaplastic cells (endocervical component) are present.Performed by: 02 Larry Mirza, Hollow Ware Maker ([facility])QC reviewed by: 02 Sammie Thomason, Supervisory Hollow Ware Maker ([facility]). 02Note: Note 02 The Pap smear is [...] Low,HH-Alert High <-Panic Low,>-Panic High,A-Abnormal,AA-Critical Abnormal ------Performed at:02 WB [facility] [address] [address] Breanna Clark MD, Trichomonas vaginalis (NAYELY) Negative Negative [facility] Nucleated erythrocytes [Pres ence] in Blood by Automated countOrdered By: Ajit Pettit on 11-05-2022 Nucleated RBC Auto Ql (Bld) 0.1 /100{WBC} 0-0.5 [facility] Platelet adequacy [Presence] in Blood by Light microscopyOrdered By: Ajit Pettit on 11-05-2022 Platelets LM Ql (Bld) Normal Normal [facility] Platelet mean volume Auto (B ld) [Entitic vol]Ordered By: Ajit Pettit on 11-05-2022 Platelet mean volume (Bld) [Entitic vol] 9.1 fL 6.3-10.7 [facility] Platelet morphology finding [Identifier] in BloodOrdered By: Ajit Pettit on 11-05-2022 Platelet morphology finding Nom (Bld) N/A [facility] Platelets Auto (Bld) [#/Vol] Ordered By: Ajit Pettit on 11-05-2022 Platelets (Bld) [#/Vol] 304 10*3/uL 150-450 [facility] Platelets Large [Presence] i n Blood by Light microscopyOrdered By: Ajit Pettit on 11-05-2022 Platelets Large LM Ql (Bld) Slight [facility] Polychromasia [Presence] in Blood by Light microscopyOrdered By: Ajit Pettit on 11-05-2022 Polychromasia LM Ql (Bld) Slight [facility] Protein [Mass/volume] in Ser um or PlasmaOrdered By: Ajit Pettit on 11-05-2022 Protein [Mass/Vol] 6.8 g/dL 6.1-7.9 [facility] RBC Auto (Bld) [#/Vol]Ordere d By: Ajit Pettit on 11-05-2022 RBC (Bld) [#/Vol] 4.46 10*6/uL 3.60-5.00 [facility] RBC morphologyOrdered By: Shelbi Pettit on 11-05-2022 RBC morphology finding Nom (Bld) N/A [facility] Scan and CBCon 11-05-2022 Basophils (Bld) [#/Vol] 0.1 10*3/uL Normal 0.0-0.2 [facility] Comment on above: Order Comment: Reaso n for Exam Type 2 diabetes mellitus without complication, without long- Performed By: #### L DOUG SIMENTAL #### [facility] [address] [place] [address] [place] Basophils/100 WBC (Bld) 0.8 % Normal . [facility] Comment on above: Order Comment: Reaso n for Exam Type 2 diabetes mellitus without complication, without long- Performed By: #### L DOUG SIMENTAL #### [facility] [address] [id number] [place] Eosinophils (Bld) [#/Vol] 0.1 10*3/uL Normal 0.0-0.45 [facility] Comment on above: Order Comment: Reaso n for Exam Type 2 diabetes mellitus without complication, without long- Performed By: #### L ELLIS SIMENTALLD #### [facility] [address] [id number] [place] Eosinophils/100 WBC (Bld) 0.7 % Normal . [facility] Comment on above: Order Comment: Reaso n for Exam Type 2 diabetes mellitus without complication, without long- Performed By: #### L ACTDOUG WHYTE #### [facility] [address] [place] [address] Erythrocyte distribution width (RBC) [Ratio] 13.5 % Normal 11.9-15.3 [facility] Comment on above: Order Comment: Reaso n for Exam Type 2 diabetes mellitus without complication, without long- Performed By: #### L ELLIS SIMENTALLD #### [address] Hematocrit (Bld) [Volume fraction] 40.1 % Normal 34.0-46.4 [facility] Comment on above: Order Comment: Reaso n for Exam Type 2 diabetes mellitus without complication, without long- Performed By: #### L DOUG SIMENTAL #### [address] Hemoglobin (Bld) [Mass/Vol] 13.2 g/dL Normal 11.8-15.4 [facility] Comment on above: Order Comment: Reaso n for Exam Type 2 diabetes mellitus without complication, without long- Performed By: #### L DOUG SIMENTAL #### [place] [address] [place] Large Platelets Slight Normal [facility] Comment on above: Order Comment: Reaso n for Exam Type 2 diabetes mellitus without complication, without long- Result Comment: PERF ORMED BY: [place] [address] PATHOLOGIST OIL TRUCK DRIVER RIDGE HUERTA M.D. Performed By: #### L DOUG SIMENTAL #### [place] [address] [place] Lymphocytes (Bld) [#/Vol] 5.1 10*3/uL High 1.00-4.8 [facility] Comment on above: Order Comment: Reaso n for Exam Type 2 diabetes mellitus without complication, without long- Performed By: #### L ACTDOUG WHYTE #### [place] [address] [place] Lymphocytes/100 WBC (Bld) 37.3 % Normal . [facility] Comment on above: Order Comment: Reaso n for Exam Type 2 diabetes mellitus without complication, without long- Performed By: #### L DOUG SIMENTAL #### [facility] [address] MCH (RBC) [Entitic mass] 29.5 pg Normal 24.7-34.3 [facility] Comment on above: Order Comment: Reaso n for Exam Type 2 diabetes mellitus without complication, without long- Performed By: #### L ACTELLIS WHYTELD #### [facility] [address] MCV (RBC) [Entitic vol] 90.0 fL Normal 80-100 [facility] Comment on above: Order Comment: Reaso n for Exam Type 2 diabetes mellitus without complication, without long- Performed By: #### L DOUG SIMENTAL #### [facility] [address] Mean Corpuscular HGB Conc 32.8 g/dL Normal 32.0-35.0 [facility] Comment on above: Order Comment: Reaso n for Exam Type 2 diabetes mellitus without complication, without long- Performed By: #### L DOUG SIMENTAL #### [facility] [address] [place] [address] [place] Microcytosis Slight Normal [facility] Comment on above: Order Comment: Reaso n for Exam Type 2 diabetes mellitus without complication, without long- Performed By: #### L ACTDOUG WHYTE #### [facility] [address] [place] [address] [place] Monocytes (Bld) [#/Vol] 1.1 10*3/uL High 0.0-0.8 [facility] Comment on above: Order Comment: Reaso n for Exam Type 2 diabetes mellitus without complication, without long- Performed By: #### L ACTELLIS WHYTELD #### [facility] [address] [place] [address] [place] Monocytes/100 WBC (Bld) 8.3 % Normal . [facility] Comment on above: Order Comment: Reaso n for Exam Type 2 diabetes mellitus without complication, without long- Performed By: #### L ACTIC CUBLD #### [facility] [address] [place] [address] [place] Neutrophils (Bld) [#/Vol] 7.3 10*3/uL Normal 1.8-7.7 [facility] Comment on above: Order Comment: Reaso n for Exam Type 2 diabetes mellitus without complication, without long- Performed By: #### L ACTIC CUBLD #### [facility] [address] Neutrophils/100 WBC (Bld) 52.9 % Normal . [facility] Comment on above: Order Comment: Reaso n for Exam Type 2 diabetes mellitus without complication, without long- Performed By: #### L ACTIC CUBLD #### [facility] [address] NRBC% 0.1 /100{WBC} Normal 0-0.5 [facility] Comment on above: Order Comment: Reaso n for Exam Type 2 diabetes mellitus without complication, without long- Performed By: #### L ACTIC CUBLD #### [facility] [address] Platelet Estimate Normal Normal Normal [facility] Comment on above: Order Comment: Reaso n for Exam Type 2 diabetes mellitus without complication, without long- Performed By: #### L ACTPATO CUBLD #### [facility] [address] [place] [address] [place] Platelet mean volume (Bld) [Entitic vol] 9.1 fL Normal 6.3-10.7 [facility] Comment on above: Order Comment: Reaso n for Exam Type 2 diabetes mellitus without complication, without long- Performed By: #### L ACTIC CUBLD #### [facility] [address] [id number] [place] Platelets (Bld) [#/Vol] 304 10*3/uL Normal 150-450 [facility] Comment on above: Order Comment: Reaso n for Exam Type 2 diabetes mellitus without complication, without long- Performed By: #### L ACTIC CUBLD #### [facility] [address] Polychromasia Slight Normal [facility] Comment on above: Order Comment: Reaso n for Exam Type 2 diabetes mellitus without complication, without long- Performed By: #### L HOLA, CUBLD #### [facility] [address] RBC (Bld) [#/Vol] 4.46 10*6/uL Normal 3.60-5.00 [facility] Comment on above: Order Comment: Reaso n for Exam Type 2 diabetes mellitus without complication, without long- Performed By: #### L HOLA, CUBLD #### [facility] [address] WBC (Bld) [#/Vol] 13.7 10*3/uL High 3.8-11.6 [facility] Comment on above: Order Comment: Reaso n for Exam Type 2 diabetes mellitus without complication, without long- Performed By: #### L HOLA, CUBLD #### [facility] [address] Serum or plasma alanine george otransferase measurement without P-5'-P (enzymatic activiOrdered By: Ajit Pettit on 11-05-2022 ALT No additional P-5'-P [Catalytic activity/Vol] 16 U/L 10-60 [facility] Serum or plasma albumin/glob ulin mass ratioOrdered By: Ajit Pettit on 11-05-2022 Albumin/Globulin [Mass ratio] 1.6 {ratio} [facility] Serum or plasma alkaline lalo sphatase measurement (enzymatic activity/volume)Ordered By: Ajit Pettit on 11-05-2022 ALP [Catalytic activity/Vol] 52 U/L 32-92 [facility] Serum or plasma anion gap de terminationOrdered By: Ajit Pettit on 11-05-2022 Anion gap [Moles/Vol] 14.2 mmol/L 6.0-15.0 [facility] Serum or plasma aspartate am inotransferase measurement (enzymatic activity/volume)Ordered By: Ajit Pettit on 11-05-2022 AST [Catalytic activity/Vol] 20 U/L 10-42 [facility] Serum or plasma calcium ashwini urement (mass/volume)Ordered By: Ajit Pettit on 11-05-2022 Calcium [Mass/Vol] 9.3 mg/dL 8.2-10.2 [facility] Serum or plasma chloride jett surement (moles/volume)Ordered By: Ajit Pettit on 11-05-2022 Chloride [Moles/Vol] 99 mmol/L 95-114 [facility] Serum or plasma glucose ashwini urement (mass/volume)Ordered By: Ajit Pettit on 11-05-2022 Glucose [Mass/Vol] 96 mg/dL 70-100 [facility] Comment on above: ADA recommended refe rence rangeRandom Glucose Reference Range is dependent on time and content of last meal. Glucose of more than 200 mg/dL in a nonstressed, ambulatory subject supports the diagnosis of Diabetes Mellitus. Serum or plasma high density lipoprotein (HDL) cholesterol measurementOrdered By: Ajit Pettit on 11-05-2022 Cholesterol in HDL [Mass/Vol] 42 mg/dL 35-85 [facility] Comment on above: HDL CHOL ATP-III CLA SSIFICATION Cardiovascular RiskHDL > or equal to 60 mg/dL LOWHDL < 40 mg/dL HIGH Serum or plasma potassium me asurement (moles/volume)Ordered By: Ajit Pettit on 11-05-2022 Potassium [Moles/Vol] 4.3 mmol/L 3.5-5.1 [facility] Serum or plasma sodium measu rement (moles/volume)Ordered By: Ajit Pettit on 11-05-2022 Sodium [Moles/Vol] 132 mmol/L 136-146 [facility] Serum or plasma total biliru bin measurement (mass/volume)Ordered By: Ajit Pettit on 11-05-2022 Bilirubin [Mass/Vol] 0.3 mg/dL 0.3-1.2 [facility] Serum or plasma total carbon dioxide measurement (moles/volume)Ordered By: Ajit Pettit on 11-05-2022 CO2 [Moles/Vol] 23.1 mmol/L 22.0-30.0 [facility] Serum or plasma total choles terol/high density lipoprotein (HDL) cholesterol mass ratOrdered By: Ajit Pettit on 11-05-2022 Cholesterol.total/Suellen sterol in HDL [Mass ratio] 4.1 {ratio} <5.0 [facility] Serum or plasma urea nitroge n measurement (mass/volume)Ordered By: Ajit Pettit on 11-05-2022 Urea nitrogen [Mass/Vol] 7 mg/dL 9-23 [facility] TSH DL <= 0.005 mIU/L QnOrde red By: Ajit Pettit on 11-05-2022 TSH Qn 4.07 m[IU]/L 0.45-5.33 [facility] Thyroid Stim Hormone w/Rflxo n 11-05-2022 Thyroid Stim Hormone w/Rflx 4.07 u[iU]/mL Normal 0.45-5.33 [facility] Comment on above: Order Comment: Reaso n for Exam Type 2 diabetes mellitus without complication, without long- Reason for Exam Vitamin D deficiency Performed By: #### L DOUG SIMENTAL #### [facility] [address] [place] [id number] Triglyceride [Mass/volume] i n Serum or PlasmaOrdered By: Ajit Pettit on 11-05-2022 Triglyceride [Mass/Vol] 330 mg/dL 35-149 F [facility] Comment on above: TRIG ATP III CLASSIF ICATIONTRIG less than 150 mg/dL NormalTRIG 150-199 mg/dL Borderline highTRIG 200-500 mg/dL High TRIG greater than 500 mg/dL Very highStandard traceable to the Center for Disease Conrtrol and Prevention (CDC) test method. Urine Cultureon 11-05-2022 Bacteria identified Cx Nom (U) Reason for Exam Urinary urgency Urine No Growth 2 Days PERFORMED BY: [place] [address] PATHOLOGIST OIL TRUCK DRIVER RIDGE HUERTA M.D. [facility] Comment on above: Performed By: #### L ELLIS SIMENTALLD #### [facility] [address] [place] [address] Urine culture routineOrdered By: Ajit Pettit on 11-05-2022 Bacteria identified Cx Nom (U) No Growth 2 Days [facility] Vaginal fluid Atopobium vagi rich DNA detection by probe and target amplification methoOrdered By: Ajit Pettit on 11-05-2022 A. vaginae DNA NAYELY+probe Ql (Vag fld) Low - 0 Score . [facility] Vaginal fluid Megasphaera sp ecies type 1 DNA detection by probe and target amplificatOrdered By: Ajit Pettit on 11-05-2022 Megasphaera sp type 1 DNA NAYELY+probe Ql (Vag fld) Low - 0 Score . [facility] Comment on above: Calculate total scor e by adding the 3 individual bacterialvaginosis (BV) marker scores together. Total score isinterpreted as follows:Total score 0-1: Indicates the absence of BV.Total score 2: Indeterminate for BV. Additional clinical data should be evaluated to establish a diagnosis.Total score 3-6: Indicates the presence of BV.This test was developed and its performance characteristicsdetermined by [employer]. It has not been cleared or approvedby the Food and Drug Administration. Vaginal fluid bacterial vagi nosis associated bacterium 2 DNA detection by probe and tOrdered By: Ajit Pettit on 11-05-2022 Bacterial vaginosis associated bacterium 2 DNA NAYELY+probe Ql (Vag fld) Low - 0 Score . [facility] Vaginitis Plus (VG+)on 11-05 Atopobium Vaginae Low - 0 Normal . [facility] Comment on above: Order Comment: Reaso n for Exam Cervical cancer screening Performed By: #### L DOUG SIMENTAL #### [facility] [address] [place] [address] [place] BVAB2 Low - 0 Normal . [facility] Comment on above: Order Comment: Reaso n for Exam Cervical cancer screening Performed By: #### L DOUG SIMENTAL #### [facility] [address] [place] [id number] [place] Luz Elena Albicans, NAYELY Negative Normal Negative [facility] Comment on above: Order Comment: Reaso n for Exam Cervical cancer screening Result Comment: This test was developed and its performance characteristics determined by [employer]. It has not been cleared or approved by the Food and Drug Administration. Performed By: #### L DOUG SIMENTAL #### [place] [address] [place] Luz Elena Glabrata, NAYELY Negative Normal Negative [facility] Comment on above: Order Comment: Reaso n for Exam Cervical cancer screening Result Comment: This test was developed and its performance characteristics determined by [facility]. It has not been cleared or approved by the Food and Drug Administration. PERFORMED BY: [place] [address] PATHOLOGIST OIL TRUCK DRIVER RIDGE HUERTA M.D. Performed By: #### L DOUG SIMENTAL #### [address] Chlamydia Trachomotis, NAYELY Negative Normal Negative [facility] Comment on above: Order Comment: Reaso n for Exam Cervical cancer screening Performed By: #### L DOUG SIMENTAL #### [place] [address] [place] Megasphaera Low - 0 Normal . [facility] Comment on above: Order Comment: Reaso [...] Food and Drug Administration. Performed By: #### L ELLIS SIMENTALLD #### [place] [address] [place] Neisseria Gonorrhoeae, NAYELY Negative Normal Negative [facility] Comment on above: Order Comment: Reaso n for Exam Cervical cancer screening Result Comment: Perf ormed at: =G - [facility] [address] [id number] Commercial Real Estate Appraiser: Breanna Clark MD, Phone: [phone] Performed By: #### L DOUG SIMENTAL #### [facility] [address] Tric Vag NAYELY Negative Normal Negative [facility] Comment on above: Order Comment: Reaso n for Exam Cervical cancer screening Performed By: #### L DOUG SIMENTAL #### [address] Vitamin D 25 Hydroxy Totalon 11-05-2022 Vitamin D 25 Hydroxy Total 28.8 ng/mL Low 30-100 [facility] Comment on above: Order Comment: Reaso n for Exam Type 2 diabetes mellitus without complication, without long- Reason for Exam Vitamin D deficiency Result Comment: MICHAEL MIN D STATUS 25(OH)VITAMIN D RANGE (ng/mL) Deficient <20 Insufficient 20 to <30 Sufficient 30 to 100 Reference: Jovanni MF,Dominique ARORA, Gillian NINA, et al. Evaluation,treatment, and prevention of vitamin D deficiency; an Endocrine Society clinical practice guideline. JCEM. 2010; 96(7):1911-30. PERFORMED BY: [place] [address] PATHOLOGIST OIL TRUCK DRIVER RIDGE HUERTA M.D. Performed By: #### L DOUG SIMENTAL #### [address] WBC Auto (Bld) [#/Vol]Ordere d By: Ajit Pettit on 11-05-2022 WBC (Bld) [#/Vol] 13.7 10*3/uL 3.8-11.6 [facility] XR cervical spine w flex/ext on 11-03-2022 XR cervical spine w flex/ext [facility] Main [place] [address] [place] [address] XRay Report Signed Patient: Rachel Mcgarry MR#: [id number] 1 : 1980 Acct:[id number] Age/Sex: 42 / F ADM Date: 11/03/22 Loc: XD Room: Type: [facility] Attending Dr: Kyler Miramontes MD Copies to: [...] Yeboah Jr., D.O.11/03/2022 2:43 PM Dictation Location: [facility]- Transcribed By: [facility] 11/03/22 1443 Dictated By: Andrés Yeboah Jr, DO 11/03/22 1438 Signed By: 11/03/22 1443 [facility] Ambulatory Visit Summaryon 0 11-02-2022 Ambulatory Visit Summary RACHEL MCGARRY :1980 Visit Date:11/02/2022 Ambulatory Visit Instructions Your Diagnosis Urgency of urination Urethral stricture Feeling of incomplete bladder emptying Tests Performed Urnls Dip Stick Auto w/o Microscopy POC 58349 Your Care Team Attending Physician - Joshua PRESTON MD Primary Care Physician - AJIT PETTIT [...] What to do next Scheduled Follow-Up Appointments Wednesday. 2022 10:45 AM EDT With: JORDANA BALDERAS, Joshua Dempsey Where: [facility] [place] [facility] Patient Educationon 11-02-19 23 Patient Education [...] keep your urine pale yellow. ? Take npvi-wsh-uifhxed or prescription medicines. ? Eat foods that are high in fiber, such as beans, whole grains, and fresh fruits and vegetables. ? Limit foods that are high in fat and processed sugars, such as fried or sweet foods. General instructions ? Take kqhm-rzn-hiuvqdd and prescription medicines only as told by [...] muscles that help control urination. ? Take nnzn-otx-zyqionq and prescription medicines only as told by [...] 07/17/2010 Document Revised: 03/30/2019 Document Reviewed: 03/30/2019 [email or web address] Patient Education ? 2019 [employer]. [facility] Urology Office/Clinic Noteon 11-02-2022 Urology Office/Clinic Note Chief Complaint Urinary problmes HPI Staff This is a 42 year old female here due to having problems with urination. Previous DX: feeling of incomplete bladder emptying, frequency and urgency. S/P Cysto done 08/24/22. Pt. states she has seen a DIRECTOR SALES since last visit and she has cyst [...] and history for this patient from Dr. preston I have reviewed and verified the staff [...] Information JORDANA BALDERAS, Joshua Dempsey, URL [address] [facility] [address] [place], [place] [id number] Business (1) Additional Instructions: 6 month follow up Patient Education Urinary Frequency, Adult I, Bailey Pacheco , personally scribed for Dr. Preston on 11/02/2022 11:30:04. . Documentation recorded by the scribe, Bailey Pacheco, accurately reflects the services(s) I performed and decisions made by me. Authenticated by Dr. Preston on 11/02/2022 11:42:43. Problem List/Past Medical History [...] oral t (more content not included)... [facility] Comment on above: Result Comment: Elec tronically Signed By: Joshua PRESTON MD\.br\Date and Time Signed: 11/02/22 11:43 EST\.br\Electronically Co-Signed By: Bailey Pacheco\.br\Date and Time Co-Signed: 11/02/22 11:30 EST Provider Letteron 09-29-2022 Provider Letter (Inserted Image. Bre ble to display) September 29, 2022 RACHEL MCGARRY [address] [facility] [address] [place] [address] RACHEL MCGARRY 1980 Dear Rachel, You missed your scheduled [...] [facility] [address] [address] [facility] Coding Summary.on 08-26-2022 Coding Summary. CD:[id number] Gh0bWw+ PGhlYWQ+RC4LSNCdG30ihDOzbJ4 KW5iFXH6TNHSMHZSTVI9LHS4sfH M2PChvH3UurfEo PsodgFMdMU60CUn7OLM5kOjaCZt viC7xfYXlQ3q3CgHuNR11pM29RQ rfUKHsBsD3YfKhnzchgZSs M3otEyTleKSqJhk+PHRhYmxlIHd mDKUuLOyyGZYkOqZctRvlWS2qTf 9yZGVyLWNvbGxhcHNlOiBj i1dmXQTlFIczRB5duUkgV1GovWC 3KDDqt8m6Cz49nVN+THTtYNF4qY ubFAagj983SaPtr1ljOOL2 jXAjMEhsGYO2M70mc2B0ZKKzHYQ zJRE1fPC5qZ5jvZqqchfsF3KgzZ MdCpE5POM2xRLwhK3seTgm mahceX3tUhi+V55FMN6NUZJUFR4 LGor4A5RfBpmvsAV+RQ87PKRnKJ 74pQLczGKvh5swyKf4VfTb WGScSHQ0aBbqZObsr3FvAKGbR51 apZKyi7R2THJixVuflHWyKzFqoI J3vS1iAKzqzyioj0uwqdow Hjsbo0ojzl43hN68O11lAUuqQXC zKJL1BWPlLRVdpQcvhh4nxV4xWk 8+LFkkm7tfi2zqcZo7HlYo WQPfbyJqyKlfMVQ5s7LgNh11S1I xnPjyo3GsYtk5yg18qUBxn1C8mZ S3IXpeHPSaxK2xVCziCsJ2 PKQqPdTafX20gTIfCOnzEt8xeAo mpDrgNH6lGRXjncgrDKJzuN8zPU RfxNGuhKdgVR7zQPPvlqdi q905JdGbILD9QBAbgBAdW4NbfM5 mOaIgRNQxJNRtN4MciWWfYSslG4 95VJwrLdT2ZMCibjYuX8Nl FBDgxUsiNhK3b3G5Sr2Kh2Mpvtn dQXS0ZHtoAYZpIvSxRfNxUrY7Y9 IuDbm5IBPhoSszOV1gP4Bn IARdichjkqaenZH1QGPlLLUmyC7 0cFLhRYxhBh9ca1P8x852MQQcQO TpfF26Xo0coKapFVWjmGVB gX2wahoxe1euuongEoLbZTLmAGy 1JEm6RCEvqTmmVyUtKHW3UvK1FV S6fTCveG1tuSfipcedgG5n Oyc+W74ohN0fVLW8OWD2wwcvIUQ ubfZaNE77BS25A9SgRqdepYZyyV U+LEGzpcIplCijMF8bVtKh k9izp9QdEVvfG4JvFBEpLJjnXrs 3GNPoVRH1cPB9jL1zKQIwFXbdo4 Q8qVR3A9EnbnIvuy9ki3tf ONDwIVwcO40dwIVwn6J6GJDdfOF 4LNNytUfgBgLrvD47Tmr+PGNvbG bna2MzNpbme9jev2uckUv7 ExRgKYYvldLudKnzOHC2q3LqSh7 8P25gPUonGSYrZMCkCCWdGDKgwS fyox1xfC2lTx5+PGNvbCB3 qLP8iQ0gDXMxAgD2SSbzC209CgO dgEOgGordf9jdq5sqiXp6MbJdGN WnyhDnyPktCRF6l3EmFh36 E06eEKgxVUWgEPPnNBDaFHFnpGq rqs8elV2lDe4+CF3qv7hrms53eE 48dHI+QCXhPNF0nSkgSFsr YAWatM6fALkfPnR6IVCeOoXzzB5 9fRVdRRofKa6enAspqWyoCQ6fYG Oeqochi060UiZmm2eiEJQu yLXoLIjbDVX0C51bi8J6MVFcGVF bZUM8sGV1nT6euGgsqmdilSMboQ ccecQkjHdtZPizFAfzR528 IHRvcDsnPlBhdGllbnQgTmFtZTo 6G0HpOte2BNPlkFnkQT7hnBBhBC ggAs1nwGysmPnhEF0xVEYo lfdyw391YxVnb5dfCQEkaLTkSXf eOLF9J44br0N7QNPmPSEjRQJ7tX K9zU7ugCqrmhgqhZGalOwh waAyuQdvJCdlAHkbC197JKSnhKk uWtOjnpXkMELjxRB5WQ79DI22yJ Rrq2C8vYE4V2BmGXEkszff rbaeeKV8LCXlKKEujZ46Na3yhCa iCu9mBYXnWZC2QANmzEZqU3RxjE 6gMuPhXSXzILWoI9ZgtPGs DIvmF401QSbuOpX8AHPdlbMqR2X bZUKmcCpnCzS6d6T6Xj0XP5W6DI 05EM07gPGis4B5pQT1B9Oy RTFglnoduaqwrNJ8JPVuDALshJ9 7Pm9kbHdiAw0vVZHfRTN0RDWaoU JyR3KijE8cQbBjYOUnNACg C3UrxSAuADtdW029BOntPbY6AUE aoaZyP4FuENGcoJbgJyI2i4C9Mr 2RPPy3YO36MR25qNYcd3H8 bOG0L0RaWLLkdszfbmctuYR9ZBW rDAAmpK81Hp5nhPvqPu7yBOLsVF G6SXFzxMFrI7SniM6zGsGg EQSpLDFhE0HgcSLqLYjtP966RRj gMaV8VBFjlxQeE5NlXIGwyXiqPz U7p6C2Sg2VNOCbWK51BIK8 tUL3FD30UI05Q2AvCmpeeRArcDC +PHRhYmxlIHdpZHRoPScxMDAlJy EhyLftAC0pWc4dUYYgLDUc zRimgNMfFzIgv2jdBCNvNPnlSL1 orIjdV1EnnLS6RDExb3k1Vr74B2 5uS3SukFC+WUIezEB2yWG9 lB5gRxDhNbJ8RYsuV210YjVjkIS gWathe2yfu7izoUx7XaA2LELntb WbbBekAEP9c6CzGe56H98i IHdpZHRoPSIxNSUiIHZhbGlnbj0 kzE1gWx5+ZFFzkFP8aGZ9uG8dDl OaNqI2UNdbB918SnBeaGVd Vydvq0pox6llxPy7RjTvFZRwbuK cfCehSJN4o6LcNx70E7HggDxpu6 LoLwh6ep18mUIjm4C9wRL2 V9JuQKDbrychjBJjjYnjXM0aMDV bztdbEMDegE4cEIKoL6o4RnZsBc C6HOizN8RqljK2EQFphQIl NHwgUFY5M07su1V6XHOyHEQjGWE 0hZG8rI8elJiaroibaSJifExszz SmiBavKQhrGBmyA366SYDx tLkyDLObiT2fPESdcZYmvXmyZP6 mTDWqfojkKo7NQAGKXVYMZT7JHB GEUG35SR14dUOlb2A9gGI9 J8SbPDCwycnvkelmtQR7JKUeVMD vrU25sUGtIRgwRx3mp3C4a543WL NgJSXdcQ86Dv1ajEubFQOu oPAOqL9awyoib8riqsutUzTeGXX vXHr9MFb6RFPmiMhtIaPhAEE1Ny G1SXI7nIMzrC1oeRrtlysh uR0zQam+BDMiDQGjYOn8LAgecOL +OSHkKGV5dHxqVXyrVASraC1nCZ DuB8p1IhMiSdJ0WEaaI8Jp UKIlvqzzNh97eL1lApRiHxD0DSj lS7IrssT4ULWkzBVlJYkdYLL7H5 7ft8E3RUAmLCRoXXL5zCM7 zS7luWnjqmyarCLltShtshRxuRi qHZqgXLhkB896JBNohKkmEfEaUB zyEIQtGO02CN69fJVww8D7 xNK5W9YzCIBcilbjxcslcTS2TAV cMOGvrG71yUAyKTuuWo4tn8U7b8 90ZAHxESZnmO98Zu0jvHor EKEhdBDTvZ7ijwuyi8oesijzLpJ pMQRlLDp6BSe3BNXnvCafUsYiOM X2KmP1TVN6wKTmyQ2pcDug snxzmB7mQwf+QiJaWDtjVA38PO0 3yBSiw1H5cQH3B0HfQOIggbwinr gdrUX1OLAeGZPvdE62yNKh CGqbEa1hh7E1m779APIoDVIabV8 6Xb8ndZtgAQFebVKUhZ8xvutva4 ejogqdUoBdPWXnPPs5JVi3 SQGdlEoaXkYnISJ6SeV0AJG8dZW zzP0ujOlvbppzaF4hHhx+T3V0cG Q9fLKzpDywzRA+VS77hj78 A8TnBsyrUdh4CQEoUAI8tGL9uI5 dADLwGRebd3L3nVR0P0NvziJajk 2vt8vrINLaSJgrM58czADn n9B3QSLouQB3YFFnfSfvHwUzbJ7 3Oyc+RHJroAwxt8HgHsjxm4fpq8 daqCu9BjZdQQKzewHkiLdc GXT2s7UhXr23I26tCZgyGNVdLNJ iJXBrYYSpvNbjxc1liP5rNf5+PG OtfAD1wBA7zN6kNkYaIuY0 MAfaO709JwUcnZSzXonff2fsj9v ukJg7HcHjSWZadaSwaTvnASH2m4 KaRd65I4YwpBdei5UdQfb9 hr36fVWbh9K0fKM2J2TeZDLxzox uyJHweVhyQA7dGBGdimukPOHpyF 6zRZKfW2y6XxFrZvU0WJso H2EpblR6XKPdsOEyOMUdkCZUhZ1 moidmv2ibechuLaQwFAHaZUf7MC e1GYYotFejNoXvAVH7MkR7 PLK9uOCumS3bpRtyxvmhoS6mGnv +JDs0p4rkbFPfQA3sgVU4RR22KU 21pJYms2X3cNZ4W4ZaKBRa adtodqiqvBA7DCTvFQVtyR06Rk6 roOqdTn8sBTFmNDU1APDswHVbG9 KeaF9oJeRbNLYxPATbC9Ix eHLvADkcS678NXnsFoS8BYUdamJ fY7FrNTPqrQcoOvR4j3G1Nl6BWW 29BO15EL25sAEfk5C1fGJ1 T6WpDSGqladrjsvjkBP0COErRAS ywT73Ud4ahNkrGc9mTKKwCCK6CM RqfPCdF8TdrW9hDtQiQCQm IWMwI2CjmRSoZLdhF193BKhcAqZ 3XECkqfQiL0OsUORhpPouNtB2c1 S8Ni3WLp81TQ36FK78xFNc w7U5qEB3N6ShNGQzsflipxuozKL 6XLUdMZCzcG89Ke6asDscGd0rFS GkPWI2CNVyuGEjE1XdrH4p WuQfBZTuFTTdX7IqtURcEMdyC40 2HQpeZpQ2IKZqecRaO2XwTNPhvZ gaHqF2g0B8Ji1ACOnanmr1 M8KvIayrzWE+JO36DGDaDZ66vRX nmXNna8kpySm9NeSbWXTrCPN0nO gyYIvbr1TtMDPjE91piLBl c2U6 (more content not included)... [facility] IntraOperative Documentson 10-25-2021 IntraOperative Documents [id number]#[id number]:127 [facility] Consent for Procedure/Surger yon 08-24-2022 Consent for Procedure/Surgery [id number]#1.00CD:127 [facility] Consent for Treatmenton 08-05 Consent for Treatment [id number]#1.00CD:127 [facility] Inpatient Patient Summaryon 08-24-2022 Inpatient Patient Summary [place] [id number] Clinical Summary Person Information Name: RACHEL MCGARRY Age: 42 Years : 1980 Sex: Female PCP: AJIT PETTIT CNP Marital Status: Race: White Ethnicity: Non- or Language: Cuban Visit Id: Visit Reason: FEELING OF INCOMPLETE BLADDER EMPTY URINARY FREQUENCY Speciality: Acuity: Enc Type: Outpatient Med Service: Surgery Arrival: 08/24/2022 13:16:48 Discharge: Dispo Type: Address: [address] [place] [address] [address] [facility] [id number] Provider Notes: Diagnosis: Problems Active Urgency of [...] 8 hours. Care Team Members: Attending Physician: Joshua PRESTON MD Consulting Physician: Referring Physician: Joshua PRESTON MD Follow up: With: Address: When: Joshua PRESTON [address] [facility], [address], [place] [address] [facility] [address] (1) Within 6 weeks Comments: Call for followup appointment. Monitor the urinary low after the dilation today. Have a great Thanksgiving. Patient Education Information: EU - Cystoscopy with Urethral Dilation Discharge Instructions (Custom) [facility] IntraOperative Documentson 1 10-24-2021 IntraOperative Documents [id number]#1.00CD:127 [facility] IntraOperative Documents [id number]#[id number]:127 [facility] Main OR Intraoperative Recor don 08-24-2022 Main OR Intraoperative Record IntraOp Document Type FTURO Summary Primary Physician: Joshua PRESTON MD Finalized Date/Time: 08/24/22 15:52:21 Pt. Name: RACHEL MCGARRY/Sex: 1980 Female Med Rec #: [id number] Physician: Joshua PRESTON MD Financial #: [id number] Pt. Type: O Room/Bed: / Admit/Disch: 08/24/22 13:16:48 - Institution: Case Times FTURO Entry 1 Patient Times In Room 08/24/22 15:42:00 Out Room 08/24/22 15:52:00 Procedure Times Start 08/24/22 15:45:00 Stop 08/24/22 15:48:00 Anesthesia Times Last Modified By: Kathy Lund RN 08/24/22 15:52:14 Case Attendance FTURO Entry 1 Entry 2 Entry 3 Case Attendee Joshua PRESTON MD SEED TECHNICIAN, Velma Lund RN, Kathy Bradford Role Performed Surgeon - Primary Scrub - Primary Rotor Pilot - Primary Time In 08/24/22 15:42:00 08/24/22 15:42:00 08/24/22 15:42:00 Time Out 08/24/22 15:52:00 08/24/22 15:52:00 08/24/22 15:52:00 Procedure CYSTOSCOPY LOCAL WITH CYSTOSCOPY LOCAL WITH CYSTOSCOPY LOCAL WITH URETHRAL DILATION(.) URETHRAL DILATION(.) URETHRAL DILATION(.) Comments NICOL YARBROUGH MED STUDENT OBSERVING Last Modified By: Kathy Lund RN, RN, Kimberly Y Barbee RN, Kimberly Y 08/24/22 15:52:16 08/24/22 15:52:16 08/24/22 15:52:16 Surgical Procedures FTURO Entry 1 Procedure Description Procedure CYSTOSCOPY LOCAL WITH Modifiers . URETHRAL DILATION Surgeon Description CYSTOSCOPY LOCAL WITH URETHRAL DILATION Primary Procedure Yes Primary Surgeon Joshua PRESTON MD Start 08/24/22 15:45:00 Stop 08/24/22 15:48:00 [...] Position Verified Availability Equipment, Medication Time Out JORDANA BALDERAS, Joshua Dempsey, Verified (If Participants Velma Mcgill CST, Applicable) [...] By: Kathy Lund RN 08/24/22 15:52 [facility] Main OR Preoperative Recordo n 08-24-2022 Main OR Preoperative Record Holding Area Document Type FTURO Summary Primary Physician: Joshua PRESTON MD Finalized Date/Time: 08/24/22 14:57:36 Pt. Name: RACHEL MCGARRY /Sex: 1980 Female Med Rec #: [id number] Physician: Joshua PRESTON MD Financial #: [id number] Pt. Type: O Room/Bed: / Admit/Disch: 08/24/22 [...] No Pain Comment: na Skin Integrity Intact, [place], Warm, & Dry Vitals - EU Blood Pressure 145/96 Pulse 76 bpm Respirations 18 br/min SPO2 98 % Last Modified By: Natividad Green LPN 08/24/22 14:57:31 General Comments: Temp:35.8 Finalized By: Natividad Green LPN Document Signatures Signed By: Natividad Green LPN 08/24/22 14:57 [facility] Operative Reporton 2 Operative Report Patient: TARIK MCGARRY Age: 42 years Sex: Female : 1980 Associated Diagnoses: None Author: Joshua PRESTON MD Procedure Operative Information Details: Date/ Time: [...] urine. The Urethra was dilated to: 30 English w/ sounds. Devices Implanted: None. Removal: Cystoscope is removed, The patient tolerated it well. Postoperative Information Discharge: Patient is discharged home with antibiotic coverage, Follow up arranged, F/U six weeks. . [facility] Comment on above: Result Comment: Elec tronically Signed By: Joshua PRESTON MD\.br\Date and Time Signed: 08/24/22 15:53 EST Outpatient Surgery Discharge Instructionon 08-24-2022 Outpatient Surgery Discharge Instruction [id number]#[id number]:127 [facility] Outpatient Surgery Discharge Instruction [place] [id number] Patient Discharge Instructions PERSON INFORMATION Name: RACHEL MCGARRY Date of : 1980 Current Date: 08/24/2022 15:51:11 PHYSICIANS Admitting Physician: Joshua PRESTON MD Comment: Discharge Diagnosis: RACHEL MCGARRY has been given the following list of follow-up instructions, prescriptions, and patient education materials: IF UNABLE TO CONTACT YOUR PHYSICIAN AND YOU FEEL IT IS AN EMERGENCY, GO TO THE NEAREST EMERGENCY ROOM OR CALL 911 Follow up: With: Address: When: Joshua Blood [address], [address], [facility] [address] [place] [address] Business (1) Within 6 weeks Comments: Call [...] you have a fever over 100 degrees IZEFERINO JAMIE L, have received the attached patient education materials/instructions [...] to serve you. Thank you for choosing [facility] RAD - CT Reporton 08-06-[address] - [address] Report [id number]#1.00CD:127 [facility] RAD - Ultrasound Reporton RAD - Ultrasound Report [id number]#1.00CD:127 [facility] Physician Referralon 022 Physician Referral [id number]#1.00CD:127 [facility] Patient Educationon 07-31-20 22 Patient Education Urology Urodynamic Testing What [...] including vitamins, herbs, eye drops, creams, and mucg-zef-iqmxior medicines. ? Whether you are or may [...] system diseases. (more content not included)... [facility] Urology Office/Clinic Noteon 07-31-2022 Urology Office/Clinic Note [...] to proceed. Follow-up With When Contact Information Joshua PRESTON MD, URL [address] [address]- Additional Instructions: Cysto/ Urodynamics Patient Education Urodynamic Testing I, Viji Johnson, personally scribed for Dr. Preston on 07/31/2022 12:12:13. . Documentation recorded by the scribeViji, accurately reflects the services(s) I performed and decisions made by me. Authenticated by Dr. Preston on 07/31/2022 12:13:49. Problem List/Past Medical History Ongoing Anemia Anxiety Cervical cancer chlamydia Feeling of incomplete bladder emptying Fibromyalgia Gallstone Headache Heart murmur History of cervical cancer History of UTI Microscopic hematuria Panic disorder Smoker Smoker PURA (stress urinary incontinence, female) Urgency of urination Urinary frequency Weak urinary stream Historical No qual (more content not included)... [facility] Comment on above: Result Comment: Elec tronically Signed By: Joshua PRESTON MD\.br\Date and Time Signed: 07/31/22 12:15 EDT\.br\Electronically Co-Signed By: Viji Johnson\.br\Date and Time Co-Signed: 07/31/22 12:12 EDT Basophils Auto (Bld) [#/Vol] Ordered By: Ajit Pettit on 07-08-2022 Basophils (Bld) [#/Vol] 0.1 10*3/uL 0.0-0.2 [facility] Basophils/100 WBC Auto (Bld) Ordered By: Ajit Pettit on 07-08-2022 Basophils/100 WBC (Bld) 0.4 % . [facility] Blood hemoglobin measurement (mass/volume)Ordered By: Ajit Pettit on 07-08-2022 Hemoglobin (Bld) [Mass/Vol] 12.7 g/dL 11.8-15.4 [facility] Blood leukocytes automated c ount (number/volume)Ordered By: Ajit Pettit on 07-08-2022 WBC (Bld) [#/Vol] 14.3 10*3/uL 4.5-11.0 [facility] Body fluid albumin measureme nt (mass/volume)Ordered By: Ajit Pettit on 07-08-2022 Albumin (Body fld) [Mass/Vol] 3.6 g/dL 3.2-5.5 [facility] Creatinine and Glomerular fi ltration rate.predicted panel (S/P/Bld)Ordered By: Ajit Pettit on 07-08-2022 Creatinine [Mass/Vol] 0.66 mg/dL 0.44-1.03 [facility] Eosinophils Auto (Bld) [#/Vo l]Ordered By: Ajit Pettit on 07-08-2022 Eosinophils (Bld) [#/Vol] 0.2 10*3/uL 0.0-0.45 [facility] Eosinophils/100 WBC Auto (Bl d)Ordered By: Ajit Pettit on 07-08-2022 Eosinophils/100 WBC (Bld) 1.2 % . [facility] Erythrocyte distribution wid th Auto (RBC) [Ratio]Ordered By: Ajit Pettit on 07-08-2022 Erythrocyte distribution width (RBC) [Ratio] 13.5 % 11.9-15.3 [facility] Estimated glomerular filtrat ion rate (GFR) non- AmericanOrdered By: Ajit Pettit on 10-05-2022 GFR/1.73 sq M.predicted among non-blacks MDRD (S/P/Bld) [Vol rate/Area] > 60 mL/Min [facility] Globulin Calc (S) [Mass/Vol] Ordered By: Ajit Pettit on 07-08-2022 Globulin (S) [Mass/Vol] 2.4 g/dL [facility] Hematocrit Auto (Bld) [Volum e fraction]Ordered By: Ajit Pettit on 07-08-2022 Hematocrit (Bld) [Volume fraction] 38.9 % 34.0-46.4 [facility] - Hematology and Cell countsOrdered By: Ajit Pettit on 07-08-2022 Nucleated RBC/100 WBC (Bld) [Ratio] 0.0 % 0-0.5 [facility] Lymphocytes Auto (Bld) [#/Vo l]Ordered By: Ajit Pettit on 07-08-2022 Lymphocytes (Bld) [#/Vol] 4.5 10*3/uL 1.00-4.8 [facility] Lymphocytes/100 WBC Auto (Bl d)Ordered By: Ajit Pettit on 07-08-2022 Lymphocytes/100 WBC (Bld) 31.2 % . [facility] MCH Auto (RBC) [Entitic mass ]Ordered By: Ajit Pettit on 07-08-2022 MCH (RBC) [Entitic mass] 29.7 pg 24.7-34.3 [facility] MCHC Auto (RBC) [Mass/Vol]Or dered By: Ajit Pettit on 07-08-2022 MCHC (RBC) [Mass/Vol] 32.7 g/dL 32.0-35.0 [facility] MCV Auto (RBC) [Entitic vol] Ordered By: Ajit Pettit on 07-08-2022 MCV (RBC) [Entitic vol] 90.8 fL 80-100 [facility] Monocytes Auto (Bld) [#/Vol] Ordered By: Ajit Pettit on 07-08-2022 Monocytes (Bld) [#/Vol] 1.1 10*3/uL 0.0-0.8 [facility] Monocytes/100 WBC Auto (Bld) Ordered By: Ajit Pettit on 07-08-2022 Monocytes/100 WBC (Bld) 7.8 % . [facility] Neutrophils Auto (Bld) [#/Vo l]Ordered By: Ajit Pettit on 07-08-2022 Neutrophils (Bld) [#/Vol] 8.5 10*3/uL 1.8-7.7 [facility] Neutrophils/100 WBC Auto (Bl d)Ordered By: Ajit Pettit on 07-08-2022 Neutrophils/100 WBC (Bld) 59.4 % . [facility] No Panel InformationOrdered By: Ajit Pettit on 07-08-2022 Estimated GFR () > 60 mL/Min [facility] Comment on above: GFR estimated refere nce range: According to KDOQI guidelines, <60 ml/min/1.73m2 is sufficient to diagnose a patient with chronic kidney disease. Pharmacy Creatinine Clearance (Chem N/A [facility] Platelet mean volume Auto (B ld) [Entitic vol]Ordered By: Ajit ePttit on 07-08-2022 Platelet mean volume (Bld) [Entitic vol] 8.3 fL 6.3-10.7 [facility] Platelets Auto (Bld) [#/Vol] Ordered By: Ajit Pettit on 07-08-2022 Platelets (Bld) [#/Vol] 332 10*3/uL 150-450 [facility] Protein [Mass/volume] in Ser um or PlasmaOrdered By: Ajit Pettit on 07-08-2022 Protein [Mass/Vol] 6.0 g/dL 6.1-7.9 [facility] RBC Auto (Bld) [#/Vol]Ordere d By: Ajit Pettit on 07-08-2022 RBC (Bld) [#/Vol] 4.29 10*6/uL 3.60-5.00 [facility] Serum or plasma alanine george otransferase measurement without P-5'-P (enzymatic activiOrdered By: Ajit Pettit on 07-08-2022 ALT No additional P-5'-P [Catalytic activity/Vol] 26 U/L 10-60 [facility] Serum or plasma albumin/glob ulin mass ratioOrdered By: Ajit Pettit on 07-08-2022 Albumin/Globulin [Mass ratio] 1.5 {ratio} [facility] Serum or plasma alkaline lalo sphatase measurement (enzymatic activity/volume)Ordered By: Ajit Pettit on 07-08-2022 ALP [Catalytic activity/Vol] 46 U/L 32-92 [facility] Serum or plasma anion gap de terminationOrdered By: Ajit Pettit on 07-08-2022 Anion gap [Moles/Vol] 15.1 mmol/L 6.0-15.0 [facility] Serum or plasma aspartate am inotransferase measurement (enzymatic activity/volume)Ordered By: Ajit Pettit on 07-08-2022 AST [Catalytic activity/Vol] 31 U/L 10-42 [facility] Serum or plasma calcium ashwini urement (mass/volume)Ordered By: Ajit Pettit on 07-08-2022 Calcium [Mass/Vol] 9.3 mg/dL 8.2-10.2 [facility] Serum or plasma chloride jett surement (moles/volume)Ordered By: Ajit Pettit on 07-08-2022 Chloride [Moles/Vol] 101 mmol/L 95-114 [facility] Serum or plasma glucose ashwini urement (mass/volume)Ordered By: Ajit Pettit on 07-08-2022 Glucose [Mass/Vol] 129 mg/dL 70-100 [facility] Comment on above: ADA recommended refe rence rangeRandom Glucose Reference Range is dependent on time and content of last meal. Glucose of more than 200 mg/dL in a nonstressed, ambulatory subject supports the diagnosis of Diabetes Mellitus. Serum or plasma potassium me asurement (moles/volume)Ordered By: Ajit Pettit on 07-08-2022 Potassium [Moles/Vol] 5.0 mmol/L 3.5-5.1 [facility] Serum or plasma sodium measu rement (moles/volume)Ordered By: Ajit Pettit on 07-08-2022 Sodium [Moles/Vol] 135 mmol/L 136-146 [facility] Serum or plasma total biliru bin measurement (mass/volume)Ordered By: Ajit Pettit on 07-08-2022 Bilirubin [Mass/Vol] 0.5 mg/dL 0.3-1.2 [facility] Serum or plasma total carbon dioxide measurement (moles/volume)Ordered By: Ajit Pettit on 07-08-2022 CO2 [Moles/Vol] 23.9 mmol/L 22.0-30.0 [facility] Serum or plasma urea nitroge n measurement (mass/volume)Ordered By: Ajit Pettit on 07-08-2022 Urea nitrogen [Mass/Vol] 12 mg/dL 06-26 [facility] TSH DL <= 0.005 mIU/L QnOrde red By: Ajit Pettit on 06-24-2022 TSH Qn 4.14 m[IU]/L 0.45-5.33 [facility] Basophils Auto (Bld) [#/Vol] Ordered By: Ajit Pettit on 06-02-2022 Basophils (Bld) [#/Vol] 0.1 10*3/uL 0.0-0.2 [facility] Basophils/100 WBC Auto (Bld) Ordered By: Ajit Pettit on 06-02-2022 Basophils/100 WBC (Bld) 0.9 % . [facility] Blood hemoglobin measurement (mass/volume)Ordered By: Ajit Pettit on 06-02-2022 Hemoglobin (Bld) [Mass/Vol] 12.9 g/dL 11.8-15.4 [facility] Blood leukocytes automated c ount (number/volume)Ordered By: Ajit Pettit on 06-02-2022 WBC (Bld) [#/Vol] 16.8 10*3/uL 4.5-11.0 [facility] Body fluid albumin measureme nt (mass/volume)Ordered By: Ajit Pettit on 06-02-2022 Albumin (Body fld) [Mass/Vol] 3.5 g/dL 3.2-5.5 [facility] Creatinine and Glomerular fi ltration rate.predicted panel (S/P/Bld)Ordered By: Ajit Pettit on 06-02-2022 Creatinine [Mass/Vol] 0.58 mg/dL 0.44-1.03 [facility] Eosinophils Auto (Bld) [#/Vo l]Ordered By: Ajit Pettit on 06-02-2022 Eosinophils (Bld) [#/Vol] 0.1 10*3/uL 0.0-0.45 [facility] Eosinophils/100 WBC Auto (Bl d)Ordered By: Ajit Pettit on 06-02-2022 Eosinophils/100 WBC (Bld) 0.7 % . [facility] Erythrocyte distribution wid th Auto (RBC) [Ratio]Ordered By: Ajit Pettit on 06-02-2022 Erythrocyte distribution width (RBC) [Ratio] 13.3 % 11.9-15.3 [facility] Estimated glomerular filtrat ion rate (GFR) non- AmericanOrdered By: Ajit Pettit on 06-02-2022 GFR/1.73 sq M.predicted among non-blacks MDRD (S/P/Bld) [Vol rate/Area] > 60 mL/Min [facility] Globulin Calc (S) [Mass/Vol] Ordered By: Ajit Pettit on 06-02-2022 Globulin (S) [Mass/Vol] 2.5 g/dL [facility] Hematocrit Auto (Bld) [Volum e fraction]Ordered By: Ajit Pettit on 06-02-2022 Hematocrit (Bld) [Volume fraction] 38.8 % 34.0-46.4 [facility] - Hematology and Cell countsOrdered By: Ajit Pettit on 06-02-2022 Nucleated RBC/100 WBC (Bld) [Ratio] 0.0 % 0-0.5 [facility] Lymphocytes Auto (Bld) [#/Vo l]Ordered By: Ajit Pettit on 06-02-2022 Lymphocytes (Bld) [#/Vol] 3.4 10*3/uL 1.00-4.8 [facility] Lymphocytes/100 WBC Auto (Bl d)Ordered By: Ajit Pettit on 06-02-2022 Lymphocytes/100 WBC (Bld) 20.3 % . [facility] MCH Auto (RBC) [Entitic mass ]Ordered By: Ajit Pettit on 06-02-2022 MCH (RBC) [Entitic mass] 30.3 pg 24.7-34.3 [facility] MCHC Auto (RBC) [Mass/Vol]Or dered By: Ajit Pettit on 06-02-2022 MCHC (RBC) [Mass/Vol] 33.2 g/dL 32.0-35.0 [facility] MCV Auto (RBC) [Entitic vol] Ordered By: Ajit Pettit on 06-02-2022 MCV (RBC) [Entitic vol] 91.1 fL 80-100 [facility] Monocytes Auto (Bld) [#/Vol] Ordered By: Ajit Pettit on 06-02-2022 Monocytes (Bld) [#/Vol] 1.2 10*3/uL 0.0-0.8 [facility] Monocytes/100 WBC Auto (Bld) Ordered By: Ajit Pettit on 06-02-2022 Monocytes/100 WBC (Bld) 7.2 % . [facility] Neutrophils Auto (Bld) [#/Vo l]Ordered By: Ajit Pettit on 06-02-2022 Neutrophils (Bld) [#/Vol] 11.9 10*3/uL 1.8-7.7 [facility] Neutrophils/100 WBC Auto (Bl d)Ordered By: Ajit Pettit on 06-02-2022 Neutrophils/100 WBC (Bld) 70.9 % . [facility] No Panel InformationOrdered By: Ajit Pettit on 06-02-2022 Estimated GFR () > 60 mL/Min [facility] Comment on above: GFR estimated refere nce range: According to KDOQI guidelines, <60 ml/min/1.73m2 is sufficient to diagnose a patient with chronic kidney disease. Pharmacy Creatinine Clearance (Chem N/A [facility] Platelet mean volume Auto (B ld) [Entitic vol]Ordered By: Ajit Pettit on 06-02-2022 Platelet mean volume (Bld) [Entitic vol] 9.2 fL 6.3-10.7 [facility] Platelets Auto (Bld) [#/Vol] Ordered By: Ajit Pettit on 06-02-2022 Platelets (Bld) [#/Vol] 313 10*3/uL 150-450 [facility] Protein [Mass/volume] in Ser um or PlasmaOrdered By: Ajit Pettit on 06-02-2022 Protein [Mass/Vol] 6.0 g/dL 6.1-7.9 [facility] RBC Auto (Bld) [#/Vol]Ordere d By: Ajit Pettti on 06-02-2022 RBC (Bld) [#/Vol] 4.26 10*6/uL 3.60-5.00 [facility] Serum or plasma alanine george otransferase measurement without P-5'-P (enzymatic activiOrdered By: Ajit Pettit on 06-02-2022 ALT No additional P-5'-P [Catalytic activity/Vol] 20 U/L 10-60 [facility] Serum or plasma albumin/glob ulin mass ratioOrdered By: Ajit Pettit on 06-02-2022 Albumin/Globulin [Mass ratio] 1.4 {ratio} [facility] Serum or plasma alkaline lalo sphatase measurement (enzymatic activity/volume)Ordered By: Ajit Pettit on 06-02-2022 ALP [Catalytic activity/Vol] 48 U/L 32-92 [facility] Serum or plasma anion gap de terminationOrdered By: Ajit Pettit on 06-02-2022 Anion gap [Moles/Vol] 15.8 mmol/L 6.0-15.0 [facility] Serum or plasma aspartate am inotransferase measurement (enzymatic activity/volume)Ordered By: Ajit Pettit on 06-02-2022 AST [Catalytic activity/Vol] 21 U/L 10-42 [facility] Serum or plasma calcium ashwini urement (mass/volume)Ordered By: Ajit Pettit on 06-02-2022 Calcium [Mass/Vol] 9.1 mg/dL 8.2-10.2 [facility] Serum or plasma chloride jett surement (moles/volume)Ordered By: Ajit Pettit on 06-02-2022 Chloride [Moles/Vol] 100 mmol/L 95-114 [facility] Serum or plasma glucose ashwini urement (mass/volume)Ordered By: Ajit Pettit on 06-02-2022 Glucose [Mass/Vol] 141 mg/dL 70-100 [facility] Comment on above: ADA recommended refe rence [...] on 06-02-2022 Potassium [Moles/Vol] 4.3 mmol/L 3.5-5.1 [facility] Serum or plasma sodium measu rement (moles/volume)Ordered By: Ajit Pettit on 06-02-2022 Sodium [Moles/Vol] 132 mmol/L 136-146 [facility] Serum or plasma total biliru bin measurement (mass/volume)Ordered By: Ajit Pettit on 06-02-2022 Bilirubin [Mass/Vol] 0.5 mg/dL 0.3-1.2 [facility] Serum or plasma total carbon dioxide measurement (moles/volume)Ordered By: Ajit Pettit on 06-02-2022 CO2 [Moles/Vol] 20.5 mmol/L 22.0-30.0 [facility] Serum or plasma urea nitroge n measurement (mass/volume)Ordered By: Ajit Pettit on 06-02-2022 Urea nitrogen [Mass/Vol] 12 mg/dL 9-23 [facility] TSH DL <= 0.005 mIU/L QnOrde red By: Ajit Pettit on 06-02-2022 TSH Qn 2.06 m[IU]/L 0.45-5.33 [facility] Basophils Auto (Bld) [#/Vol] Ordered By: Jasmin Velázquez on 05-27-2022 Basophils (Bld) [#/Vol] 0.1 10*3/uL 0.0-0.2 [facility] Basophils/100 WBC Auto (Bld) Ordered By: Jasmin Velázquez on 05-27-2022 Basophils/100 WBC (Bld) 0.6 % . [facility] Blood hemoglobin measurement (mass/volume)Ordered By: Jasmin Velázquez on 05-27-2022 Hemoglobin (Bld) [Mass/Vol] 13.1 g/dL 11.8-15.4 [facility] Blood leukocytes automated c ount (number/volume)Ordered By: Jasmin Velázquez on 05-27-2022 WBC (Bld) [#/Vol] 13.2 10*3/uL 4.5-11.0 [facility] CT biopsyOrdered By: Jasmin noel on 05-27-2022 Transferrin [Mass/Vol] 307 mg/dL 180-380 [facility] Eosinophils Auto (Bld) [#/Vo l]Ordered By: Jasmin Velázquez on 05-27-2022 Eosinophils (Bld) [#/Vol] 0.1 10*3/uL 0.0-0.45 [facility] Eosinophils/100 WBC Auto (Bl d)Ordered By: Jasmin Velázquez on 05-27-2022 Eosinophils/100 WBC (Bld) 1.0 % . [facility] Erythrocyte distribution wid th Auto (RBC) [Ratio]Ordered By: Jasmin Velázquez on 05-27-2022 Erythrocyte distribution width (RBC) [Ratio] 13.5 % 11.9-15.3 [facility] Ferritin [Mass/volume] in Se rum or PlasmaOrdered By: Jasmin Velázquez on 05-27-2022 Ferritin [Mass/Vol] 49.6 ng/mL 11-306.8 [facility] Hematocrit Auto (Bld) [Volum e fraction]Ordered By: Jasmin Velázquez on 05-27-2022 Hematocrit (Bld) [Volume fraction] 40.1 % 34.0-46.4 [facility] Iron [Mass/volume] in Serum or PlasmaOrdered By: Jasmin Velázquez on 05-27-2022 Iron [Mass/Vol] 50 ug/dL 40-150 [facility] Iron binding capacity [Mass/ volume] in Serum or PlasmaOrdered By: Jasmin Velázquez on 05-27-2022 Iron binding capacity [Mass/Vol] 430 ug/dL 255-450 [facility] Iron saturation [Mass Fracti on] in Serum or PlasmaOrdered By: Jasmin Velázquez on 05-27-2022 Iron saturation [Mass fraction] 11.0 % 20-50 [facility] - Hematology and Cell countsOrdered By: Jasmin Velázquez on 05-27-2022 Nucleated RBC/100 WBC (Bld) [Ratio] 0.1 % 0-0.5 [facility] Lymphocytes Auto (Bld) [#/Vo l]Ordered By: Jasmin Velázquez on 05-27-2022 Lymphocytes (Bld) [#/Vol] 3.3 10*3/uL 1.00-4.8 [facility] Lymphocytes/100 WBC Auto (Bl d)Ordered By: Jasmin Velázquez on 05-27-2022 Lymphocytes/100 WBC (Bld) 24.8 % . [facility] MCH Auto (RBC) [Entitic mass ]Ordered By: Jasmin Velázquez on 05-27-2022 MCH (RBC) [Entitic mass] 30.0 pg 24.7-34.3 [facility] MCHC Auto (RBC) [Mass/Vol]Or dered By: Jasmin Velázquez on 05-27-2022 MCHC (RBC) [Mass/Vol] 32.7 g/dL 32.0-35.0 [facility] MCV Auto (RBC) [Entitic vol] Ordered By: Jasmin Velázquez on 05-27-2022 MCV (RBC) [Entitic vol] 91.5 fL 80-100 [facility] Monocytes Auto (Bld) [#/Vol] Ordered By: Jasmin Velázquez on 05-27-2022 Monocytes (Bld) [#/Vol] 1.0 10*3/uL 0.0-0.8 [facility] Monocytes/100 WBC Auto (Bld) Ordered By: Jasmin Velázquez on 05-27-2022 Monocytes/100 WBC (Bld) 7.6 % . [facility] Neutrophils Auto (Bld) [#/Vo l]Ordered By: Jasmin Velázquez on 08-24-2022 Neutrophils (Bld) [#/Vol] 8.7 10*3/uL 1.8-7.7 [facility] Neutrophils/100 WBC Auto (Bl d)Ordered By: Jasmin Velázquez on 05-27-2022 Neutrophils/100 WBC (Bld) 66.0 % . [facility] No Panel InformationOrdered By: Jasmin Velázquez on 05-27-2022 BCR/abl See comment [facility] Comment on above: See report. Scanned copy available in EMR. Platelet mean volume Auto (B ld) [Entitic vol]Ordered By: Jasmin Velázquez on 05-27-2022 Platelet mean volume (Bld) [Entitic vol] 8.8 fL 6.3-10.7 [facility] Platelets Auto (Bld) [#/Vol] Ordered By: Jasmin Velázquez on 05-27-2022 Platelets (Bld) [#/Vol] 284 10*3/uL 150-450 [facility] RBC Auto (Bld) [#/Vol]Ordere d By: Jasmin Velázquez on 05-27-2022 RBC (Bld) [#/Vol] 4.38 10*6/uL 3.60-5.00 [facility] Basophils Auto (Bld) [#/Vol] Ordered By: Ajit Pettit on 05-07-2022 Basophils (Bld) [#/Vol] 0.1 10*3/uL 0.0-0.2 [facility] Basophils/100 WBC Auto (Bld) Ordered By: Ajit Pettit on 05-07-2022 Basophils/100 WBC (Bld) 0.6 % . [facility] Blood hemoglobin measurement (mass/volume)Ordered By: Ajit Pettit on 05-07-2022 Hemoglobin (Bld) [Mass/Vol] 13.4 g/dL 11.8-15.4 [facility] Blood leukocytes automated c ount (number/volume)Ordered By: Ajit Pettit on 05-07-2022 WBC (Bld) [#/Vol] 16.2 10*3/uL 4.5-11.0 [facility] Eosinophils Auto (Bld) [#/Vo l]Ordered By: Ajit Pettit on 05-07-2022 Eosinophils (Bld) [#/Vol] 0.1 10*3/uL 0.0-0.45 [facility] Eosinophils/100 WBC Auto (Bl d)Ordered By: Ajit Pettit on 05-07-2022 Eosinophils/100 WBC (Bld) 0.9 % . [facility] Erythrocyte distribution wid th Auto (RBC) [Ratio]Ordered By: Ajit Pettit on 05-07-2022 Erythrocyte distribution width (RBC) [Ratio] 13.6 % 11.9-15.3 [facility] Hematocrit Auto (Bld) [Volum e fraction]Ordered By: Ajit Pettit on 05-07-2022 Hematocrit (Bld) [Volume fraction] 40.5 % 34.0-46.4 [facility] - Hematology and Cell countsOrdered By: Ajit Pettit on 05-07-2022 Nucleated RBC/100 WBC (Bld) [Ratio] 0.0 % 0-0.5 [facility] Lymphocytes Auto (Bld) [#/Vo l]Ordered By: Ajit Pettit on 05-07-2022 Lymphocytes (Bld) [#/Vol] 4.7 10*3/uL 1.00-4.8 [facility] Lymphocytes/100 WBC Auto (Bl d)Ordered By: Ajit Pettit on 05-07-2022 Lymphocytes/100 WBC (Bld) 28.9 % . [facility] MCH Auto (RBC) [Entitic mass ]Ordered By: Ajit Pettit on 05-07-2022 MCH (RBC) [Entitic mass] 30.7 pg 24.7-34.3 [facility] MCHC Auto (RBC) [Mass/Vol]Or dered By: Ajit Pettit on 05-07-2022 MCHC (RBC) [Mass/Vol] 33.2 g/dL 32.0-35.0 [facility] MCV Auto (RBC) [Entitic vol] Ordered By: Ajit Pettit on 05-07-2022 MCV (RBC) [Entitic vol] 92.5 fL 80-100 [facility] Monocytes Auto (Bld) [#/Vol] Ordered By: Ajit Pettit on 05-07-2022 Monocytes (Bld) [#/Vol] 1.1 10*3/uL 0.0-0.8 [facility] Monocytes/100 WBC Auto (Bld) Ordered By: Ajit Pettit on 05-07-2022 Monocytes/100 WBC (Bld) 6.8 % . [facility] Neutrophils Auto (Bld) [#/Vo l]Ordered By: Ajit Millanc on 05-07-2022 Neutrophils (Bld) [#/Vol] 10.2 10*3/uL 1.8-7.7 [facility] Neutrophils/100 WBC Auto (Bl d)Ordered By: Ajit Millanc on 05-07-2022 Neutrophils/100 WBC (Bld) 62.8 % . [facility] No Panel InformationOrdered By: Ajit Pettit on 05-07-2022 Platelet Estimate Normal Normal [facility] Platelet Morphology Comment Normal Normal [facility] Platelet mean volume Auto (B ld) [Entitic vol]Ordered By: Ajit Pettit on 05-07-2022 Platelet mean volume (Bld) [Entitic vol] 8.0 fL 6.3-10.7 [facility] Platelets Auto (Bld) [#/Vol] Ordered By: Ajit Pettit on 05-07-2022 Platelets (Bld) [#/Vol] 369 10*3/uL 150-450 [facility] RBC Auto (Bld) [#/Vol]Ordere d By: Ajit Pettit on 05-07-2022 RBC (Bld) [#/Vol] 4.38 10*6/uL 3.60-5.00 [facility] RBC morphologyOrdered By: Shelbi Pettit on 05-07-2022 RBC morphology finding Nom (Bld) Normal [facility] Bacterial blood cultureOrder ed By: Rod Alvarado on 05-06-2022 Bacteria identified Cx Nom (Bld) NO GROWTH 5 DAYS [facility] Bacteria identified Cx Nom (Bld) NO GROWTH 5 DAYS [facility] Bacterial blood cultureOrder ed By: Ajit Pettit on 05-06-2022 Bacteria identified Cx Nom (Bld) NO GROWTH 5 DAYS [facility] Urine culture routineOrdered By: Ajit Pettit on 05-02-2022 Bacteria identified Cx Nom (U) 2 Days [facility] Activated partial thrombopla stin time (aPTT) in platelet poor plasma by coagulation aOrdered By: Rod Alvarado on 05-01-2022 aPTT Coag (PPP) [Time] 29.2 s 25.1-36.5 [facility] Automated epithelial cells c ount in urine sediment (number/area)Ordered By: Rod Alvarado on 05-01-2022 Epithelial cells Auto (Urine sed) [#/Area] 5-9 [HPF] 0-2 [facility] Automated erythrocytes count in urine sediment (number/area)Ordered By: Rod Alvarado on 05-01-2022 RBC Auto (Urine sed) [#/Area] 1-2 [HPF] 0-4 [facility] Automated leukocytes count i n urine sediment (number/area)Ordered By: Rod Alvarado on 05-01-2022 WBC Auto (Urine sed) [#/Area] 1-2 [HPF] 0-4 [facility] Basophils Auto (Bld) [#/Vol] Ordered By: Rod Alvarado on 05-01-2022 Basophils (Bld) [#/Vol] 0.2 10*3/uL 0.0-0.2 [facility] Basophils Auto (Bld) [#/Vol] Ordered By: Ajit Pettit on 05-01-2022 Basophils (Bld) [#/Vol] 0.1 10*3/uL 0.0-0.2 [facility] Basophils/100 WBC Auto (Bld) Ordered By: Rod Alvarado on 05-01-2022 Basophils/100 WBC (Bld) 1.0 % . [facility] Basophils/100 WBC Auto (Bld) Ordered By: Ajit Pettit on 05-01-2022 Basophils/100 WBC (Bld) 0.7 % . [facility] Bilirubin Auto test strip Ql (U)Ordered By: Rod Alvarado on 05-01-2022 Bilirubin Ql (U) 1+ Negative [facility] Blood hemoglobin measurement (mass/volume)Ordered By: Rod Alvarado on 05-01-2022 Hemoglobin (Bld) [Mass/Vol] 13.1 g/dL 11.8-15.4 [facility] Blood hemoglobin measurement (mass/volume)Ordered By: Ajit Pettit on 05-01-2022 Hemoglobin (Bld) [Mass/Vol] 12.9 g/dL 11.8-15.4 [facility] Blood leukocytes automated c ount (number/volume)Ordered By: Rod Alvraado on 05-01-2022 WBC (Bld) [#/Vol] 15.9 10*3/uL 4.5-11.0 [facility] Blood leukocytes automated c ount (number/volume)Ordered By: Ajit Pettit on 05-01-2022 WBC (Bld) [#/Vol] 14.7 10*3/uL 4.5-11.0 [facility] Body fluid albumin measureme nt (mass/volume)Ordered By: Ajit Pettit on 05-01-2022 Albumin (Body fld) [Mass/Vol] 3.6 g/dL 3.2-5.5 [facility] Creatinine and Glomerular fi ltration rate.predicted panel (S/P/Bld)Ordered By: Rod Alvarado on 05-01-2022 Creatinine [Mass/Vol] 0.58 mg/dL 0.44-1.03 [facility] Creatinine and Glomerular fi ltration rate.predicted panel (S/P/Bld)Ordered By: Ajit Pettit on 05-01-2022 Creatinine [Mass/Vol] 0.58 mg/dL 0.44-1.03 [facility] Eosinophils Auto (Bld) [#/Vo l]Ordered By: Rod Alvarado on 05-01-2022 Eosinophils (Bld) [#/Vol] 0.2 10*3/uL 0.0-0.45 [facility] Eosinophils Auto (Bld) [#/Vo l]Ordered By: Ajit Pettit on 05-01-2022 Eosinophils (Bld) [#/Vol] 0.1 10*3/uL 0.0-0.45 [facility] Eosinophils/100 WBC Auto (Bl d)Ordered By: Rod Alvarado on 05-01-2022 Eosinophils/100 WBC (Bld) 1.0 % . [facility] Eosinophils/100 WBC Auto (Bl d)Ordered By: Ajit Pettit on 05-01-2022 Eosinophils/100 WBC (Bld) 0.9 % . [facility] Erythrocyte distribution wid th Auto (RBC) [Ratio]Ordered By: Rod Alvarado on 05-01-2022 Erythrocyte distribution width (RBC) [Ratio] 13.6 % 11.9-15.3 [facility] Erythrocyte distribution wid th Auto (RBC) [Ratio]Ordered By: Ajit Pettit on 05-01-2022 Erythrocyte distribution width (RBC) [Ratio] 13.6 % 11.9-15.3 [facility] Estimated glomerular filtrat ion rate (GFR) non- AmericanOrdered By: Rod Alvarado on 05-01-2022 GFR/1.73 sq M.predicted among non-blacks MDRD (S/P/Bld) [Vol rate/Area] > 60 mL/Min [facility] Estimated glomerular filtrat ion rate (GFR) non- AmericanOrdered By: Ajit Pettit on 05-01-2022 GFR/1.73 sq M.predicted among non-blacks MDRD (S/P/Bld) [Vol rate/Area] > 60 mL/Min [facility] Globulin Calc (S) [Mass/Vol] Ordered By: Ajit Pettit on 05-01-2022 Globulin (S) [Mass/Vol] 2.6 g/dL [facility] Hematocrit Auto (Bld) [Volum e fraction]Ordered By: Rod Alvarado on 05-01-2022 Hematocrit (Bld) [Volume fraction] 39.0 % 34.0-46.4 [facility] Hematocrit Auto (Bld) [Volum e fraction]Ordered By: Ajit Pettit on 05-01-2022 Hematocrit (Bld) [Volume fraction] 39.0 % 34.0-46.4 [facility] Ketones Auto test strip (U) [Mass/Vol]Ordered By: Rod Alvarado on 05-01-2022 Ketones (U) [Mass/Vol] Trace Negative [facility] - Chemistry and C hemistry - challengeOrdered By: Rod Alvarado on 05-01-2022 Lipase [Catalytic activity/Vol] 37.0 U/L 22-51 [facility] - CoagulationOrde red By: Rod Alvarado on 05-01-2022 PT Coag (PPP) [Time] 9.6 s 9.0-12.9 [facility] - Hematology and Cell countsOrdered By: Rod Alvarado on 05-01-2022 Nucleated RBC/100 WBC (Bld) [Ratio] 0.0 % 0-0.5 [facility] - Hematology and Cell countsOrdered By: Ajit Pettit on 05-01-2022 Nucleated RBC/100 WBC (Bld) [Ratio] 0.0 % 0-0.5 [facility] Lymphocytes Auto (Bld) [#/Vo l]Ordered By: Rod Alvarado on 05-01-2022 Lymphocytes (Bld) [#/Vol] 4.3 10*3/uL 1.00-4.8 [facility] Lymphocytes Auto (Bld) [#/Vo l]Ordered By: Ajit Pettit on 05-01-2022 Lymphocytes (Bld) [#/Vol] 3.6 10*3/uL 1.00-4.8 [facility] Lymphocytes/100 WBC Auto (Bl d)Ordered By: Rod Alvarado on 05-01-2022 Lymphocytes/100 WBC (Bld) 26.9 % . [facility] Lymphocytes/100 WBC Auto (Bl d)Ordered By: Ajit Pettit on 05-01-2022 Lymphocytes/100 WBC (Bld) 24.8 % . [facility] MCH Auto (RBC) [Entitic mass ]Ordered By: Rod Alvarado on 05-01-2022 MCH (RBC) [Entitic mass] 30.5 pg 24.7-34.3 [facility] MCH Auto (RBC) [Entitic mass ]Ordered By: Ajit Pettit on 05-01-2022 MCH (RBC) [Entitic mass] 30.5 pg 24.7-34.3 [facility] MCHC Auto (RBC) [Mass/Vol]Or dered By: oRd Alvarado on 05-01-2022 MCHC (RBC) [Mass/Vol] 33.5 g/dL 32.0-35.0 [facility] MCHC Auto (RBC) [Mass/Vol]Or dered By: Ajit Millanc on 05-01-2022 MCHC (RBC) [Mass/Vol] 32.9 g/dL 32.0-35.0 [facility] MCV Auto (RBC) [Entitic vol] Ordered By: Rod Alvarado on 05-01-2022 MCV (RBC) [Entitic vol] 91.0 fL 80-100 [facility] MCV Auto (RBC) [Entitic vol] Ordered By: Ajit Millanc on 05-01-2022 MCV (RBC) [Entitic vol] 92.6 fL 80-100 [facility] Monocytes Auto (Bld) [#/Vol] Ordered By: Rod Alvarado on 05-01-2022 Monocytes (Bld) [#/Vol] 1.1 10*3/uL 0.0-0.8 [facility] Monocytes Auto (Bld) [#/Vol] Ordered By: Ajit Millanc on 05-01-2022 Monocytes (Bld) [#/Vol] 1.1 10*3/uL 0.0-0.8 [facility] Monocytes/100 WBC Auto (Bld) Ordered By: Rod Alvarado on 05-01-2022 Monocytes/100 WBC (Bld) 6.7 % . [facility] Monocytes/100 WBC Auto (Bld) Ordered By: Ajit Pettit on 05-01-2022 Monocytes/100 WBC (Bld) 7.2 % . [facility] Neutrophils Auto (Bld) [#/Vo l]Ordered By: Rod Alvarado on 05-01-2022 Neutrophils (Bld) [#/Vol] 10.3 10*3/uL 1.8-7.7 [facility] Neutrophils Auto (Bld) [#/Vo l]Ordered By: Ajit Millanc on 05-01-2022 Neutrophils (Bld) [#/Vol] 9.8 10*3/uL 1.8-7.7 [facility] Neutrophils/100 WBC Auto (Bl d)Ordered By: Rod Alvarado on 05-01-2022 Neutrophils/100 WBC (Bld) 64.4 % . [facility] Neutrophils/100 WBC Auto (Bl d)Ordered By: Ajit Pettit on 05-01-2022 Neutrophils/100 WBC (Bld) 66.4 % . [facility] No Panel InformationOrdered By: Rod Alvarado on 05-01-2022 Estimated GFR () > 60 mL/Min [facility] Comment on above: GFR estimated refere nce range: According to KDOQI guidelines, <60 ml/min/1.73m2 is sufficient to diagnose a patient with chronic kidney disease. Pharmacy Creatinine Clearance (Chem 128.97 [facility] No Panel InformationOrdered By: Ajit Pettit on 05-01-2022 Estimated GFR () > 60 mL/Min [facility] Comment on above: GFR estimated refere nce range: According to KDOQI guidelines, <60 ml/min/1.73m2 is sufficient to diagnose a patient with chronic kidney disease. Pharmacy Creatinine Clearance (Chem N/A [facility] Platelet mean volume Auto (B ld) [Entitic vol]Ordered By: Rod Alvarado on 05-01-2022 Platelet mean volume (Bld) [Entitic vol] 7.6 fL 6.3-10.7 [facility] Platelet mean volume Auto (B ld) [Entitic vol]Ordered By: Ajit Pettit on 05-01-2022 Platelet mean volume (Bld) [Entitic vol] 8.1 fL 6.3-10.7 [facility] Platelet poor plasma interna tional normalized ratio (INR) by coagulation assay (relatOrdered By: Rod Alvarado on 05-01-2022 INR Coag (PPP) [Relative time] 0.9 {INR} [facility] Comment on above: INR Therapeutic Rang e [...] 05-01-2022 Platelets (Bld) [#/Vol] 310 10*3/uL 150-450 [facility] Platelets Auto (Bld) [#/Vol] Ordered By: Ajit Pettit on 05-01-2022 Platelets (Bld) [#/Vol] 284 10*3/uL 150-450 [facility] Protein Auto test strip (U) [Mass/Vol]Ordered By: Rod Alvarado on 05-01-2022 Protein (U) [Mass/Vol] Negative Negative [facility] Protein [Mass/volume] in Ser um or PlasmaOrdered By: Ajit Pettit on 05-01-2022 Protein [Mass/Vol] 6.2 g/dL 6.1-7.9 [facility] RBC Auto (Bld) [#/Vol]Ordere d By: Rod Alvarado on 05-01-2022 RBC (Bld) [#/Vol] 4.29 10*6/uL 3.60-5.00 [facility] RBC Auto (Bld) [#/Vol]Ordere d By: Ajit Ptetit on 05-01-2022 RBC (Bld) [#/Vol] 4.22 10*6/uL 3.60-5.00 [facility] Serum or plasma alanine george otransferase measurement without P-5'-P (enzymatic activiOrdered By: Ajit Pettit on 05-01-2022 ALT No additional P-5'-P [Catalytic activity/Vol] 17 U/L 10-60 [facility] Serum or plasma albumin/glob ulin mass ratioOrdered By: Ajit Pettit on 05-01-2022 Albumin/Globulin [Mass ratio] 1.4 {ratio} [facility] Serum or plasma alkaline lalo sphatase measurement (enzymatic activity/volume)Ordered By: Ajit Pettit on 05-01-2022 ALP [Catalytic activity/Vol] 52 U/L 32-92 [facility] Serum or plasma aspartate am inotransferase measurement (enzymatic activity/volume)Ordered By: Ajit Pettit on 05-01-2022 AST [Catalytic activity/Vol] 19 U/L 10-42 [facility] Serum or plasma calcium ashwini urement (mass/volume)Ordered By: Rod Alvarado on 05-01-2022 Calcium [Mass/Vol] 9.0 mg/dL 8.2-10.2 [facility] Serum or plasma calcium ashwini urement (mass/volume)Ordered By: Ajit Pettit on 05-01-2022 Calcium [Mass/Vol] 9.2 mg/dL 8.2-10.2 [facility] Serum or plasma chloride jett surement (moles/volume)Ordered By: Rod Alvarado on 05-01-2022 Chloride [Moles/Vol] 101 mmol/L 95-114 [facility] Serum or plasma chloride jett surement (moles/volume)Ordered By: Ajit Pettit on 05-01-2022 Chloride [Moles/Vol] 100 mmol/L 95-114 [facility] Serum or plasma glucose ashwini urement (mass/volume)Ordered By: Rod Alvarado on 05-01-2022 Glucose [Mass/Vol] 110 mg/dL 70-100 [facility] Comment on above: ADA recommended refe rence [...] on 05-01-2022 Glucose [Mass/Vol] 117 mg/dL 70-100 [facility] Comment on above: ADA recommended refe rence [...] on 05-01-2022 Potassium [Moles/Vol] 4.4 mmol/L 3.5-5.1 [facility] Serum or plasma potassium me asurement (moles/volume)Ordered By: Ajit Pettit on 05-01-2022 Potassium [Moles/Vol] 4.4 mmol/L 3.5-5.1 [facility] Serum or plasma sodium measu rement (moles/volume)Ordered By: Rod Alvarado on 05-01-2022 Sodium [Moles/Vol] 135 mmol/L 136-146 [facility] Serum or plasma sodium measu rement (moles/volume)Ordered By: Ajit Pettit on 05-01-2022 Sodium [Moles/Vol] 133 mmol/L 136-146 [facility] Serum or plasma total biliru bin measurement (mass/volume)Ordered By: Rod Alvarado on 05-01-2022 Bilirubin [Mass/Vol] 0.7 mg/dL 0.3-1.2 [facility] Serum or plasma total biliru bin measurement (mass/volume)Ordered By: Ajit Pettit on 05-01-2022 Bilirubin [Mass/Vol] 0.4 mg/dL 0.3-1.2 [facility] Serum or plasma total carbon dioxide measurement (moles/volume)Ordered By: Rod Alvarado on 05-01-2022 CO2 [Moles/Vol] 25.9 mmol/L 22.0-30.0 [facility] Serum or plasma total carbon dioxide measurement (moles/volume)Ordered By: Ajit Pettit on 05-01-2022 CO2 [Moles/Vol] 23.1 mmol/L 22.0-30.0 [facility] Serum or plasma urea nitroge n measurement (mass/volume)Ordered By: Rod Alvarado on 05-01-2022 Urea nitrogen [Mass/Vol] 11 mg/dL 06-26 [facility] Serum or plasma urea nitroge n measurement (mass/volume)Ordered By: Ajit Pettit on 05-01-2022 Urea nitrogen [Mass/Vol] 14 mg/dL 06-26 [facility] Urine appearanceOrdered By: Rod Alvarado on 05-01-2022 Appearance (U) Clear Clear [facility] Urine bacteria detection by automated methodOrdered By: Rod Alvarado on 05-01-2022 Bacteria Auto Ql (U) 1+ None Seen [facility] Urine colorOrdered By: Shady Alvarado on 05-01-2022 Color (U) Yellow Yellow [facility] Urine glucose measurement by automated test strip (mass/volume)Ordered By: Rod Alvarado on 05-01-2022 Glucose Auto test strip (U) [Mass/Vol] Normal mg/dL Normal [facility] Urine hemoglobin detection b y automated test stripOrdered By: Rod Alvarado on 05-01-2022 Hemoglobin Auto test strip Ql (U) Negative Negative [facility] Urine lactic acid measuremen tOrdered By: Rod Alvarado on 05-01-2022 Lactate (U) [Moles/Vol] 1.7 mmol/L 0.5-2.2 [facility] Urine lactic acid measuremen tOrdered By: Ajit Pettit on 05-01-2022 Lactate (U) [Moles/Vol] 2.5 mmol/L 0.5-2.2 [facility] Comment on above: Results called at 1022 on 05/01/22 Results calledat 102 2 on 05/01/22 Urine leukocyte esterase det ection by automated test stripOrdered By: Rod Alvarado on 05-01-2022 Leukocyte esterase Auto test strip Ql (U) 2+ Negative [facility] Urine nitrite detection by a utomated test stripOrdered By: Rod Alvarado on 05-01-2022 Nitrite Auto test strip Ql (U) Negative Negative [facility] Urobilinogen Auto test strip (U) [Mass/Vol]Ordered By: Rod Alvarado on 05-01-2022 Urobilinogen (U) [Mass/Vol] Normal mg/dL Normal [facility] pH Auto test strip (U)Ordere d By: Rod Alvarado on 05-01-2022 pH (U) 1.030 [pH] 1.001-1.03 0 [facility] pH (U) 6.0 [pH] 5.0-9.0 [facility] Basophils Auto (Bld) [#/Vol] Ordered By: Ajit Pettit on 04-30-2022 Basophils (Bld) [#/Vol] 0.2 10*3/uL 0.0-0.2 [facility] Basophils/100 WBC Auto (Bld) Ordered By: Ajit Pettit on 04-30-2022 Basophils/100 WBC (Bld) 0.9 % . [facility] Blood hemoglobin measurement (mass/volume)Ordered By: Ajit Pettit on 04-30-2022 Hemoglobin (Bld) [Mass/Vol] 13.9 g/dL 11.8-15.4 [facility] Blood leukocytes automated c ount (number/volume)Ordered By: Ajit Pettit on 04-30-2022 WBC (Bld) [#/Vol] 19.7 10*3/uL 4.5-11.0 [facility] Body fluid albumin measureme nt (mass/volume)Ordered By: Ajit Pettit on 04-30-2022 Albumin (Body fld) [Mass/Vol] 4.1 g/dL 3.2-5.[address] [facility] [address] biopsyOrdered By: Ajit corrales on 04-30-2022 Transferrin [Mass/Vol] 352 mg/dL 180-380 [facility] Cholesterol [Mass/volume] in Serum or PlasmaOrdered By: Ajit Pettit on 04-30-2022 Cholesterol [Mass/Vol] 260 mg/dL 140-200 [facility] Comment on above: Chol less than 200 m g/dl low risk Chol 201-239 mg/dl borderline risk Chol 240 mg/dl and greater high risk Chol less than 200 m g/dl low riskChol 201-239 mg/dl borderline riskChol 240 mg/dl and greater high risk Cholesterol in LDL Calc [Mas s/Vol]Ordered By: Ajit Pettit on 04-30-2022 Cholesterol in LDL [Mass/Vol] 134 mg/dL 0-100 [facility] Comment on above: LDL ATP III CLASSIFI [...] 04-30-2022 Cholesterol in VLDL [Mass/Vol] 68 mg/dL [facility] Creatinine and Glomerular fi ltration rate.predicted panel (S/P/Bld)Ordered By: Ajit Pettit on 04-30-2022 Creatinine [Mass/Vol] 0.56 mg/dL 0.44-1.03 [facility] Eosinophils Auto (Bld) [#/Vo l]Ordered By: Ajit Pettit on 04-30-2022 Eosinophils (Bld) [#/Vol] 0.2 10*3/uL 0.0-0.45 [facility] Eosinophils/100 WBC Auto (Bl d)Ordered By: Ajit Pettit on 04-30-2022 Eosinophils/100 WBC (Bld) 1.0 % . [facility] Erythrocyte distribution wid th Auto (RBC) [Ratio]Ordered By: Ajit Pettit on 04-30-2022 Erythrocyte distribution width (RBC) [Ratio] 13.5 % 11.9-15.3 [facility] Estimated glomerular filtrat ion rate (GFR) non- AmericanOrdered By: Ajit Pettit on 04-30-2022 GFR/1.73 sq M.predicted among non-blacks MDRD (S/P/Bld) [Vol rate/Area] > 60 mL/Min [facility] Globulin Calc (S) [Mass/Vol] Ordered By: Ajit Pettit on 04-30-2022 Globulin (S) [Mass/Vol] 2.9 g/dL [facility] Hematocrit Auto (Bld) [Volum e fraction]Ordered By: Ajit Pettit on 04-30-2022 Hematocrit (Bld) [Volume fraction] 42.9 % 34.0-46.4 [facility] Iron [Mass/volume] in Serum or PlasmaOrdered By: Ajit Pettit on 04-30-2022 Iron [Mass/Vol] 51 ug/dL 40-150 [facility] Iron binding capacity [Mass/ volume] in Serum or PlasmaOrdered By: Ajit Pettit on 04-30-2022 Iron binding capacity [Mass/Vol] 493 ug/dL 255-450 [facility] Iron saturation [Mass Fracti on] in Serum or PlasmaOrdered By: Ajit Pettit on 04-30-2022 Iron saturation [Mass fraction] 10.0 % 20-50 [facility] Laboratory - Chemistry and C hemistry - challengeOrdered By: Ajit Pettit on 04-30-2022 Cobalamin (Vitamin B12) [Mass/Vol] 472 pg/mL 180-914 [facility] - Hematology and Cell countsOrdered By: Ajit Pettit on 04-30-2022 Nucleated RBC/100 WBC (Bld) [Ratio] 0.2 % 0-0.5 [facility] Lymphocytes Auto (Bld) [#/Vo l]Ordered By: Ajit Pettit on 04-30-2022 Lymphocytes (Bld) [#/Vol] 4.1 10*3/uL 1.00-4.8 [facility] Lymphocytes/100 WBC Auto (Bl d)Ordered By: Ajit Pettit on 04-30-2022 Lymphocytes/100 WBC (Bld) 20.8 % . [facility] MCH Auto (RBC) [Entitic mass ]Ordered By: Ajit Pettit on 04-30-2022 MCH (RBC) [Entitic mass] 30.0 pg 24.7-34.3 [facility] MCHC Auto (RBC) [Mass/Vol]Or dered By: Ajit Pettit on 04-30-2022 MCHC (RBC) [Mass/Vol] 32.4 g/dL 32.0-35.0 [facility] MCV Auto (RBC) [Entitic vol] Ordered By: Ajit Pettit on 04-30-2022 MCV (RBC) [Entitic vol] 92.7 fL 80-100 [facility] Monocytes Auto (Bld) [#/Vol] Ordered By: Ajit Pettit on 04-30-2022 Monocytes (Bld) [#/Vol] 1.3 10*3/uL 0.0-0.8 [facility] Monocytes/100 WBC Auto (Bld) Ordered By: Ajit Pettit on 04-30-2022 Monocytes/100 WBC (Bld) 6.8 % . [facility] Neutrophils Auto (Bld) [#/Vo l]Ordered By: Ajit Pettit on 04-30-2022 Neutrophils (Bld) [#/Vol] 13.9 10*3/uL 1.8-7.7 [facility] Neutrophils/100 WBC Auto (Bl d)Ordered By: Ajit Pettit on 04-30-2022 Neutrophils/100 WBC (Bld) 70.5 % . [facility] No Panel InformationOrdered By: Ajit Pettit on 04-30-2022 25-Hydroxy Vitamin D Total 19.9 ng/mL 30-100 [facility] Comment on above: VITAMIN D STATUS [...] 96(7):1911-30. Estimated GFR () > 60 mL/Min [facility] Comment on above: GFR estimated refere nce range: According to KDOQI guidelines, <60 ml/min/1.73m2 is sufficient to diagnose a patient with chronic kidney disease. Pharmacy Creatinine Clearance (Chem N/A [facility] Valproic Acid (Depakene) Level 59.8 ug/mL 50.0-100.0 [facility] Comment on above: Last dose: - Platelet mean volume Auto (B ld) [Entitic vol]Ordered By: Ajit Pettit on 04-30-2022 Platelet mean volume (Bld) [Entitic vol] 8.7 fL 6.3-10.7 [facility] Platelets Auto (Bld) [#/Vol] Ordered By: Ajit Pettit on 04-30-2022 Platelets (Bld) [#/Vol] 257 10*3/uL 150-450 [facility] Protein [Mass/volume] in Ser um or PlasmaOrdered By: Ajit Pettit on 04-30-2022 Protein [Mass/Vol] 7.0 g/dL 6.1-7.9 [facility] RBC Auto (Bld) [#/Vol]Ordere d By: Ajit Pettit on 04-30-2022 RBC (Bld) [#/Vol] 4.62 10*6/uL 3.60-5.00 [facility] Serum or plasma alanine george otransferase measurement without P-5'-P (enzymatic activiOrdered By: Ajit Pettit on 04-30-2022 ALT No additional P-5'-P [Catalytic activity/Vol] 20 U/L 10-60 [facility] Serum or plasma albumin/glob ulin mass ratioOrdered By: Ajit Pettit on 04-30-2022 Albumin/Globulin [Mass ratio] 1.4 {ratio} [facility] Serum or plasma alkaline lalo sphatase measurement (enzymatic activity/volume)Ordered By: Ajit Pettit on 04-30-2022 ALP [Catalytic activity/Vol] 54 U/L 32-92 [facility] Serum or plasma aspartate am inotransferase measurement (enzymatic activity/volume)Ordered By: Ajit Pettit on 04-30-2022 AST [Catalytic activity/Vol] 22 U/L 10-42 [facility] Serum or plasma calcium ashwini urement (mass/volume)Ordered By: Ajit Pettit on 04-30-2022 Calcium [Mass/Vol] 9.4 mg/dL 8.2-10.2 [facility] Serum or plasma chloride jett surement (moles/volume)Ordered By: Ajit Pettit on 04-30-2022 Chloride [Moles/Vol] 102 mmol/L 95-114 [facility] Serum or plasma glucose ashwini urement (mass/volume)Ordered By: Ajit Pettit on 04-30-2022 Glucose [Mass/Vol] 115 mg/dL 70-100 [facility] Comment on above: ADA recommended refe rence [...] Cholesterol in HDL [Mass/Vol] 57 mg/dL 35-85 [facility] Comment on above: HDL CHOL ATP-III CLA SSIFICATION Cardiovascular Risk HDL > or equal to 60 mg/dL LOW HDL < 40 mg/dL HIGH HDL CHOL ATP-III CLA SSIFICATION Cardiovascular RiskHDL > or equal to 60 mg/dL LOWHDL < 40 mg/dL HIGH Serum or plasma potassium me asurement (moles/volume)Ordered By: Ajit Pettit on 04-30-2022 Potassium [Moles/Vol] 4.8 mmol/L 3.5-5.1 [facility] Serum or plasma sodium measu rement (moles/volume)Ordered By: Ajit Pettit on 04-30-2022 Sodium [Moles/Vol] 135 mmol/L 136-146 [facility] Serum or plasma total biliru bin measurement (mass/volume)Ordered By: Ajit Pettit on 04-30-2022 Bilirubin [Mass/Vol] 0.2 mg/dL 0.3-1.2 [facility] Serum or plasma total carbon dioxide measurement (moles/volume)Ordered By: Ajit Pettit on 04-30-2022 CO2 [Moles/Vol] 24.2 mmol/L 22.0-30.0 [facility] Serum or plasma total choles terol/high density lipoprotein (HDL) cholesterol mass ratOrdered By: Ajit Pettit on 04-30-2022 Cholesterol.total/Suellen sterol in HDL [Mass ratio] 4.6 {ratio} <5.0 [facility] Serum or plasma urea nitroge n measurement (mass/volume)Ordered By: Ajit Pettit on 04-30-2022 Urea nitrogen [Mass/Vol] 12 mg/dL 06-26 [facility] TSH DL <= 0.005 mIU/L QnOrde red By: Ajit Pettit on 04-30-2022 TSH Qn 2.89 m[IU]/L 0.45-5.33 [facility] Triglyceride [Mass/volume] i n Serum or PlasmaOrdered By: Ajit Pettit on 04-30-2022 Triglyceride [Mass/Vol] 344 mg/dL 35-149 [facility] Comment on above: TRIG ATP III [...] 01-21-2021 Basophils (Bld) [#/Vol] 0.1 10*3/uL 0.0-0.2 [facility] Basophils/100 WBC Auto (Bld) on 01-21-2021 Basophils/100 WBC (Bld) 1.0 % [facility] Blood hemoglobin measurement (mass/volume)on 01-21-2021 Hemoglobin (Bld) [Mass/Vol] 13.0 g/dL 11.8-15.4 [facility] Blood leukocytes automated c ount (number/volume)on 01-21-2021 WBC (Bld) [#/Vol] 13.2 10*3/uL 4.5-11.0 [facility] Body fluid albumin measureme nt (mass/volume)on 01-21-2021 Albumin (Body fld) [Mass/Vol] 3.7 g/dL 3.2-5.5 [facility] Creatinine and Glomerular fi ltration rate.predicted panel (S/P/Bld)on 01-21-2021 Creatinine [Mass/Vol] 0.67 mg/dL 0.44-1.03 [facility] Eosinophils Auto (Bld) [#/Vo l]on 01-21-2021 Eosinophils (Bld) [#/Vol] 0.1 10*3/uL 0.0-0.45 [facility] Eosinophils/100 WBC Auto (Bl d)on 01-21-2021 Eosinophils/100 WBC (Bld) 0.8 % [facility] Erythrocyte distribution wid th Auto (RBC) [Ratio]on 01-21-2021 Erythrocyte distribution width (RBC) [Ratio] 13.1 % 11.9-15.3 [facility] Estimated glomerular filtrat ion rate (GFR) non- Americanon 01-21-2021 GFR/1.73 sq M.predicted among non-blacks MDRD (S/P/Bld) [Vol rate/Area] > 60 mL/Min [facility] Globulin Calc (S) [Mass/Vol] on 01-21-2021 Globulin (S) [Mass/Vol] 2.7 g/dL [facility] Hematocrit Auto (Bld) [Volum e fraction]on 01-21-2021 Hematocrit (Bld) [Volume fraction] 38.1 % 34.0-46.4 [facility] Laboratory - Chemistry and C hemistry - challengeon 01-21-2021 Cobalamin (Vitamin B12) [Mass/Vol] 341 pg/mL 180-914 [facility] Laboratory - Hematology and Cell countson 01-21-2021 Nucleated RBC/100 WBC (Bld) [Ratio] 0.2 % 0-0.5 [facility] Lymphocytes Auto (Bld) [#/Vo l]on 01-21-2021 Lymphocytes (Bld) [#/Vol] 3.9 10*3/uL 1.00-4.8 [facility] Lymphocytes/100 WBC Auto (Bl d)on 01-21-2021 Lymphocytes/100 WBC (Bld) 29.4 % [facility] MCH Auto (RBC) [Entitic mass ]on 01-21-2021 MCH (RBC) [Entitic mass] 30.6 pg 24.7-34.3 [facility] MCHC Auto (RBC) [Mass/Vol]on 01-21-2021 MCHC (RBC) [Mass/Vol] 34.1 g/dL 32.0-35.0 [facility] MCV Auto (RBC) [Entitic vol] on 01-21-2021 MCV (RBC) [Entitic vol] 89.6 fL 80-100 [facility] Monocytes Auto (Bld) [#/Vol] on 01-21-2021 Monocytes (Bld) [#/Vol] 1.1 10*3/uL 0.0-0.8 [facility] Monocytes/100 WBC Auto (Bld) on 01-21-2021 Monocytes/100 WBC (Bld) 8.6 % [facility] Neutrophils Auto (Bld) [#/Vo l]on 01-21-2021 Neutrophils (Bld) [#/Vol] 8.0 10*3/uL 1.8-7.7 [facility] Neutrophils/100 WBC Auto (Bl d)on 01-21-2021 Neutrophils/100 WBC (Bld) 60.2 % [facility] No Panel Informationon 01-21 25-Hydroxy Vitamin D Total 25.5 ng/mL 30-100 [facility] Comment on above: VITAMIN D STATUS 25( [place])VITAMIN D RANGE (ng/mL) Deficient <20 Insufficient 20 to <30Sufficient 30 to 100Reference: Jovanni MF,Dominique NC, Gillian NINA, et al. Evaluation,treatment, and prevention of vitamin D deficiency; an Endocrine Society clinical practice guideline. JCEM. 2010; 96(7):1911-30. Estimated GFR () > 60 mL/Min [facility] Comment on above: GFR estimated refere nce range: According to KDOQI guidelines, <60 ml/min/1.73m2 is sufficient to diagnose a patient with chronic kidney disease. Pharmacy Creatinine Clearance (Chem N/A [facility] Valproic Acid (Depakene) Level 74.3 ug/mL 50.0-100.0 [facility] Comment on above: Last dose: - Platelet mean volume Auto (B ld) [Entitic vol]on 01-21-2021 Platelet mean volume (Bld) [Entitic vol] 9.1 fL 6.3-10.7 [facility] Platelets Auto (Bld) [#/Vol] on 01-21-2021 Platelets (Bld) [#/Vol] 261 10*3/uL 150-450 [facility] Protein [Mass/volume] in Ser um or Plasmaon 01-21-2021 Protein [Mass/Vol] 6.4 g/dL 6.1-7.9 [facility] RBC Auto (Bld) [#/Vol]on RBC (Bld) [#/Vol] 4.25 10*6/uL 3.60-5.00 [facility] Serum or plasma alanine george otransferase measurement without P-5'-P (enzymatic activion 01-21-2021 ALT No additional P-5'-P [Catalytic activity/Vol] 14 U/L 10-60 [facility] Serum or plasma albumin/glob ulin mass ratioon 01-21-2021 Albumin/Globulin [Mass ratio] 1.4 {ratio} [facility] Serum or plasma alkaline lalo sphatase measurement (enzymatic activity/volume)on 01-21-2021 ALP [Catalytic activity/Vol] 50 U/L 32-92 [facility] Serum or plasma aspartate am inotransferase measurement (enzymatic activity/volume)on 01-21-2021 AST [Catalytic activity/Vol] 17 U/L 10-42 [facility] Serum or plasma calcium ashwini urement (mass/volume)on 01-21-2021 Calcium [Mass/Vol] 9.5 mg/dL 8.2-10.2 [facility] Serum or plasma chloride jett surement (moles/volume)on 01-21-2021 Chloride [Moles/Vol] 96 mmol/L 95-114 [facility] Serum or plasma glucose ashwini urement (mass/volume)on 01-21-2021 Glucose [Mass/Vol] 117 mg/dL 70-100 [facility] Comment on above: ADA recommended refe rence rangeRandom Glucose Reference Range is dependent on time and content of last meal. Glucose of more than 200 mg/dL in a nonstressed, ambulatory subject supports the diagnosis of Diabetes Mellitus. Serum or plasma potassium me asurement (moles/volume)on 01-21-2021 Potassium [Moles/Vol] 4.3 mmol/L 3.5-5.1 [facility] Serum or plasma sodium measu rement (moles/volume)on 01-21-2021 Sodium [Moles/Vol] 132 mmol/L 136-146 [facility] Serum or plasma total biliru bin measurement (mass/volume)on 01-21-2021 Bilirubin [Mass/Vol] 0.3 mg/dL 0.3-1.2 [facility] Serum or plasma total carbon dioxide measurement (moles/volume)on 01-21-2021 CO2 [Moles/Vol] 23.6 mmol/L 22.0-30.0 [facility] Serum or plasma urea nitroge n measurement (mass/volume)on 01-21-2021 Urea nitrogen [Mass/Vol] 13 mg/dL 9-23 [facility] Albumin [Mass/volume] in Ser um or Plasmaon 11-05-2020 Albumin [Mass/Vol] 4.4 g/dL 3.2-5.5 [facility] Automated basophil %on 11-05 Basophils/100 WBC (Bld) 0.7 % [facility] Automated basophil counton 0 11-05-2020 Basophils (Bld) [#/Vol] 0.1 10*3/uL 0.0-0.2 [facility] Automated blood lymphocyte c ount (number/volume)on 11-05-2020 Lymphocytes (Bld) [#/Vol] 3.5 10*3/uL 1.00-4.8 [facility] Automated blood lymphocyte c ount as percentage of total leukocyteson 11-05-2020 Lymphocytes/100 WBC (Bld) 26.0 % [facility] Automated blood monocyte cou nton 11-05-2020 Monocytes (Bld) [#/Vol] 1.2 10*3/uL 0.0-0.8 [facility] Automated blood platelet cou nt (count/volume)on 11-05-2020 Platelets (Bld) [#/Vol] 317 10*3/uL 150-450 [facility] Automated blood platelet jett n volume measurementon 11-05-2020 Platelet mean volume (Bld) [Entitic vol] 8.2 fL 6.3-10.7 [facility] Automated eosinophil %on Eosinophils/100 WBC (Bld) 0.5 % [facility] Automated eosinophil counton 11-05-2020 Eosinophils (Bld) [#/Vol] 0.1 10*3/uL 0.0-0.45 [facility] Automated erythrocyte distri bution width ratioon 11-05-2020 Erythrocyte distribution width (RBC) [Ratio] 13.0 % 11.9-15.3 [facility] Automated erythrocyte mean c orpuscular hemoglobin (mass per erythrocyte)on 11-05-2020 MCH (RBC) [Entitic mass] 30.2 pg 24.7-34.3 [facility] Automated erythrocyte mean c orpuscular hemoglobin concentration measurement (mass/volon 11-05-2020 MCHC (RBC) [Mass/Vol] 33.9 g/dL 32.0-35.0 [facility] Automated erythrocyte mean c orpuscular volumeon 11-05-2020 MCV (RBC) [Entitic vol] 89.1 fL 80-100 [facility] Automated monocyte %on 11-05 Monocytes/100 WBC (Bld) 8.8 % F [facility] Automated neutrophil %on Neutrophils/100 WBC (Bld) 64.0 % [facility] Blood erythrocytes automated count (number/volume)on 11-05-2020 RBC (Bld) [#/Vol] 4.92 10*6/uL 3.60-5.00 [facility] Blood hemoglobin measurement (mass/volume)on 11-05-2020 Hemoglobin (Bld) [Mass/Vol] 14.9 g/dL 11.8-15.4 [facility] Blood leukocytes automated c ount (number/volume)on 11-05-2020 WBC (Bld) [#/Vol] 13.4 10*3/uL 4.5-11.0 [facility] Blood neutrophil count by au tomated method (number/volume)on 11-05-2020 Neutrophils (Bld) [#/Vol] 8.6 10*3/uL 1.8-7.7 [facility] Estimated glomerular filtrat ion rate (GFR) non- Americanon 11-05-2020 GFR/1.73 sq M predicted among non-blacks MDRD (S/P/Bld) [Vol rate/Area] mL/min/{1.73_m2} [facility] Hematocrit [Volume Fraction] of Blood by Automated counton 11-05-2020 Hematocrit (Bld) [Volume fraction] 43.8 % 34.0-46.4 [facility] Otheron 11-05-2020 GFR/1.73 sq M.predicted MDRD (S/P/Bld) [Vol rate/Area] mL/min/{1.73_m2} [facility] Comment on above: GFR estimated refere nce range: According to KDOQI guidelines, <60 ml/min/1.73m2 is sufficient to diagnose a patient with chronic kidney disease. Nucleated RBC/100 WBC (Bld) [Ratio] 0.2 % 0-0.5 [facility] Creatinine Clearance (Chem N/A [facility] Protein [Mass/volume] in Ser um or Plasmaon 11-05-2020 Protein [Mass/Vol] 7.2 g/dL 6.1-7.9 [facility] Serum globulin measurement b y calculation (mass/volume)on 11-05-2020 Globulin (S) [Mass/Vol] 2.8 g/dL [facility] Serum glutamate decarboxylas e 65 antibody assay (units/volume)on 11-05-2020 Glutamate decarboxylase 65 Ab Qn (S) <5.0 U/mL [facility] Comment on above: Performed at: [address] [id number] Director: Ana Lee MD, Phone: [phone] Serum nuclear antibody titer on 11-05-2020 Nuclear Ab (S) [Titer] Negative [facility] Comment on above: Negative <1:80 Borde rline 1:80 Positive >1:80Performed at: [facility] [place] [id number] Director: Daniel Wen PhD, Phone: [phone] Nuclear Ab (S) [Titer] Negative [facility] Comment on above: Negative <1:80 Borde rline 1:80 Positive >1:80Performed at: [facility] [employer] [id number] Director: Daniel Wen PhD, Phone: [phone] Serum or plasma alanine george otransferase measurement without P-5'-P (enzymatic activion 11-05-2020 ALT No additional P-5'-P [Catalytic activity/Vol] 22 U/L 10 [facility] Serum or plasma albumin/glob ulin mass ratioon 11-05-2020 Albumin/Globulin [Mass ratio] 1.6 {ratio} [facility] Serum or plasma alkaline lalo sphatase measurement (enzymatic activity/volume)on 11-05-2020 ALP [Catalytic activity/Vol] 60 U/L 32-92 [facility] Serum or plasma aspartate am inotransferase measurement (enzymatic activity/volume)on 11-05-2020 AST [Catalytic activity/Vol] 23 U/L 10-42 [facility] Serum or plasma calcium ashwini urement (mass/volume)on 11-05-2020 Calcium [Mass/Vol] 9.6 mg/dL 8.2-10.2 [facility] Serum or plasma chloride jett surement (moles/volume)on 11-05-2020 Chloride [Moles/Vol] 93 mmol/L 95-114 [facility] Serum or plasma creatinine m easurement with calculation of estimated glomerular filtron 11-05-2020 Creatinine [Mass/Vol] 0.62 mg/dL 0.44-1.03 [facility] Serum or plasma glucose ashwini urement (mass/volume)on 11-05-2020 Glucose [Mass/Vol] 82 mg/dL 70-100 [facility] Comment on above: ADA recommended refe rence rangeRandom Glucose Reference Range is dependent on time and content of last meal. Glucose of more than 200 mg/dL in a nonstressed, ambulatory subject supports the diagnosis of Diabetes Mellitus. Serum or plasma potassium me asurement (moles/volume)on 11-05-2020 Potassium [Moles/Vol] 4.3 mmol/L 3.5-5.1 [facility] Serum or plasma sodium measu rement (moles/volume)on 11-05-2020 Sodium [Moles/Vol] 128 mmol/L 136-146 [facility] Serum or plasma total biliru bin measurement (mass/volume)on 11-05-2020 Bilirubin [Mass/Vol] 0.6 mg/dL 0.3-1.2 [facility] Serum or plasma total carbon dioxide measurement (moles/volume)on 11-05-2020 CO2 [Moles/Vol] 22.8 mmol/L 22.0-30.0 [facility] Serum or plasma urea nitroge n measurement (mass/volume)on 11-05-2020 Urea nitrogen [Mass/Vol] 10 mg/dL 9-23 [facility] Automated basophil %on 10-22 Basophils/100 WBC (Bld) 0.6 % [facility] Automated basophil counton 0 10-22-2020 Basophils (Bld) [#/Vol] 0.1 10*3/uL 0.0-0.2 [facility] Automated blood lymphocyte c ount (number/volume)on 10-22-2020 Lymphocytes (Bld) [#/Vol] 2.8 10*3/uL 1.00-4.8 [facility] Automated blood lymphocyte c ount as percentage of total leukocyteson 10-22-2020 Lymphocytes/100 WBC (Bld) 23.6 % [facility] Automated blood monocyte cou nton 10-22-2020 Monocytes (Bld) [#/Vol] 1.0 10*3/uL 0.0-0.8 [facility] Automated blood platelet cou nt (count/volume)on 10-22-2020 Platelets (Bld) [#/Vol] 292 10*3/uL 150-450 [facility] Automated blood platelet jett n volume measurementon 10-22-2020 Platelet mean volume (Bld) [Entitic vol] 9.4 fL 6.3-10.7 [facility] Automated eosinophil %on Eosinophils/100 WBC (Bld) 0.5 % [facility] Automated eosinophil counton 10-22-2020 Eosinophils (Bld) [#/Vol] 0.1 10*3/uL 0.0-0.45 [facility] Automated erythrocyte distri bution width ratioon 10-22-2020 Erythrocyte distribution width (RBC) [Ratio] 12.8 % 11.9-15.3 [facility] Automated erythrocyte mean c orpuscular hemoglobin (mass per erythrocyte)on 10-22-2020 MCH (RBC) [Entitic mass] 29.5 pg 24.7-34.3 [facility] Automated erythrocyte mean c orpuscular hemoglobin concentration measurement (mass/volon 10-22-2020 MCHC (RBC) [Mass/Vol] 32.9 g/dL 32.0-35.0 [facility] Automated erythrocyte mean c orpuscular volumeon 10-22-2020 MCV (RBC) [Entitic vol] 89.6 fL 80-100 [facility] Automated monocyte %on 10-22 Monocytes/100 WBC (Bld) 8.7 % [facility] Automated neutrophil %on Neutrophils/100 WBC (Bld) 66.6 % [facility] Blood erythrocytes automated count (number/volume)on 10-22-2020 RBC (Bld) [#/Vol] 4.90 10*6/uL 3.60-5.00 [facility] Blood hemoglobin measurement (mass/volume)on 10-22-2020 Hemoglobin (Bld) [Mass/Vol] 14.5 g/dL 11.8-15.4 [facility] Blood leukocytes automated c ount (number/volume)on 10-22-2020 WBC (Bld) [#/Vol] 12.1 10*3/uL 3.8-11.6 [facility] Blood neutrophil count by au tomated method (number/volume)on 10-22-2020 Neutrophils (Bld) [#/Vol] 8.0 10*3/uL 1.8-7.7 [facility] Body fluid albumin measureme nt (mass/volume)on 10-22-2020 Albumin (Body fld) [Mass/Vol] 4.2 g/dL 3.2-5.5 [facility] Estimated glomerular filtrat ion rate (GFR) non- Americanon 10-22-2020 GFR/1.73 sq M predicted among non-blacks MDRD (S/P/Bld) [Vol rate/Area] mL/min/{1.73_m2} [facility] Hematocrit [Volume Fraction] of Blood by Automated counton 10-22-2020 Hematocrit (Bld) [Volume fraction] 43.9 % 34.0-46.4 [facility] Hematologyon 10-22-2020 Platelets (Bld) [#/Vol] Normal Normal F [facility] Otheron 10-22-2020 25-Hydroxy Vitamin D Total 13.3 ng/mL 30-100 [facility] Comment on above: VITAMIN D STATUS 25( [place])VITAMIN D RANGE (ng/mL) Deficient <20 Insufficient 20 to <30Sufficient 30 to 100Reference: Jovanni MF,Dominique NC, Gillian NINA, et al. Evaluation,treatment, and prevention of vitamin D deficiency; an Endocrine Society clinical practice guideline. JCEM. 2010; 96(7):1911-30. Cobalamin (Vitamin B12) [Mass/Vol] 438 pg/mL 180-914 [facility] GFR/1.73 sq M.predicted MDRD (S/P/Bld) [Vol rate/Area] mL/min/{1.73_m2} [facility] Comment on above: GFR estimated refere nce range: According to KDOQI guidelines, <60 ml/min/1.73m2 is sufficient to diagnose a patient with chronic kidney disease. Nucleated RBC/100 WBC (Bld) [Ratio] 0.0 % 0-0.5 [facility] Creatinine Clearance (Chem N/A [facility] Platelet Morphology Comment Normal Normal [facility] Valproic Acid (Depakene) Level 108.9 ug/mL 50.0-100.0 [facility] Comment on above: Last dose: - Protein [Mass/volume] in Ser um or Plasmaon 10-22-2020 Protein [Mass/Vol] 7.1 g/dL 6.1-7.9 [facility] RBC morphologyon 10-22-2020 RBC morphology finding Nom (Bld) Normal [facility] Serum globulin measurement b y calculation (mass/volume)on 10-22-2020 Globulin (S) [Mass/Vol] 2.9 g/dL [facility] Serum or plasma alanine george otransferase measurement without P-5'-P (enzymatic activion 10-22-2020 ALT No additional P-5'-P [Catalytic activity/Vol] 13 U/L 10-60 [facility] Serum or plasma albumin/glob ulin mass ratioon 10-22-2020 Albumin/Globulin [Mass ratio] 1.4 {ratio} [facility] Serum or plasma alkaline lalo sphatase measurement (enzymatic activity/volume)on 10-22-2020 ALP [Catalytic activity/Vol] 53 U/L 32-92 [facility] Serum or plasma aspartate am inotransferase measurement (enzymatic activity/volume)on 10-22-2020 AST [Catalytic activity/Vol] 15 U/L 10-42 [facility] Serum or plasma calcium ashwini urement (mass/volume)on 10-22-2020 Calcium [Mass/Vol] 9.6 mg/dL 8.2-10.2 [facility] Serum or plasma chloride jett surement (moles/volume)on 10-22-2020 Chloride [Moles/Vol] 96 mmol/L 95-114 [facility] Serum or plasma creatinine m easurement with calculation of estimated glomerular filtron 10-22-2020 Creatinine [Mass/Vol] 0.54 mg/dL 0.44-1.03 [facility] Serum or plasma glucose ashwini urement (mass/volume)on 10-22-2020 Glucose [Mass/Vol] 96 mg/dL 70-100 [facility] Comment on above: ADA recommended refe rence rangeRandom Glucose Reference Range is dependent on time and content of last meal. Glucose of more than 200 mg/dL in a nonstressed, ambulatory subject supports the diagnosis of Diabetes Mellitus. Serum or plasma potassium me asurement (moles/volume)on 10-22-2020 Potassium [Moles/Vol] 4.7 mmol/L 3.5-5.1 [facility] Serum or plasma sodium measu rement (moles/volume)on 10-22-2020 Sodium [Moles/Vol] 130 mmol/L 136-146 [facility] Serum or plasma total biliru bin measurement (mass/volume)on 10-22-2020 Bilirubin [Mass/Vol] 0.3 mg/dL 0.3-1.2 [facility] Serum or plasma total carbon dioxide measurement (moles/volume)on 10-22-2020 CO2 [Moles/Vol] 22.5 mmol/L 22.0-30.0 [facility] Serum or plasma urea nitroge n measurement (mass/volume)on 10-22-2020 Urea nitrogen [Mass/Vol] 5 mg/dL 9- [facility] Automated basophil %on 09-23 Basophils/100 WBC (Bld) 0.7 % F [facility] Automated basophil counton 1 11-24-2019 Basophils (Bld) [#/Vol] 0.1 10*3/uL 0.0-0.2 [facility] Automated blood lymphocyte c ount (number/volume)on 09-23-2020 Lymphocytes (Bld) [#/Vol] 3.3 10*3/uL 1.00-4.8 [facility] Automated blood lymphocyte c ount as percentage of total leukocyteson 09-23-2020 Lymphocytes/100 WBC (Bld) 27.3 % [facility] Automated blood monocyte cou nton 09-23-2020 Monocytes (Bld) [#/Vol] 1.3 10*3/uL 0.0-0.8 [facility] Automated blood platelet cou nt (count/volume)on 09-23-2020 Platelets (Bld) [#/Vol] 299 10*3/uL 150-450 [facility] Automated blood platelet jett n volume measurementon 09-23-2020 Platelet mean volume (Bld) [Entitic vol] 8.3 fL 6.3-10.7 [facility] Automated eosinophil %on Eosinophils/100 WBC (Bld) 0.7 % [facility] Automated eosinophil counton 09-23-2020 Eosinophils (Bld) [#/Vol] 0.1 10*3/uL 0.0-0.45 [facility] Automated erythrocyte distri bution width ratioon 09-23-2020 Erythrocyte distribution width (RBC) [Ratio] 12.8 % 11.9-15.3 [facility] Automated erythrocyte mean c orpuscular hemoglobin (mass per erythrocyte)on 09-23-2020 MCH (RBC) [Entitic mass] 29.8 pg 24.7-34.3 [facility] Automated erythrocyte mean c orpuscular hemoglobin concentration measurement (mass/volon 09-23-2020 MCHC (RBC) [Mass/Vol] 33.4 g/dL 32.0-35.0 [facility] Automated erythrocyte mean c orpuscular volumeon 09-23-2020 MCV (RBC) [Entitic vol] 89.3 fL 80-100 [facility] Automated monocyte %on 09-23 Monocytes/100 WBC (Bld) 10.8 % [facility] Automated neutrophil %on Neutrophils/100 WBC (Bld) 60.5 % [facility] Blood erythrocytes automated count (number/volume)on 09-23-2020 RBC (Bld) [#/Vol] 4.72 10*6/uL 3.60-5.00 [facility] Blood hemoglobin measurement (mass/volume)on 09-23-2020 Hemoglobin (Bld) [Mass/Vol] 14.1 g/dL 11.8-15.4 [facility] Blood leukocytes automated c ount (number/volume)on 09-23-2020 WBC (Bld) [#/Vol] 11.9 10*3/uL 3.8-11.6 [facility] Blood neutrophil count by au tomated method (number/volume)on 09-23-2020 Neutrophils (Bld) [#/Vol] 7.2 10*3/uL 1.8-7.7 [facility] Body fluid albumin measureme nt (mass/volume)on 09-23-2020 Albumin (Body fld) [Mass/Vol] 3.9 g/dL 3.2-5.5 [facility] Estimated glomerular filtrat ion rate (GFR) non- Americanon 09-23-2020 GFR/1.73 sq M predicted among non-blacks MDRD (S/P/Bld) [Vol rate/Area] mL/min/{1.73_m2} [facility] Hematocrit [Volume Fraction] of Blood by Automated counton 09-23-2020 Hematocrit (Bld) [Volume fraction] 42.1 % 34.0-46.4 [facility] Otheron 09-23-2020 25-Hydroxy Vitamin D Total 17.0 ng/mL 30-100 [facility] Comment on above: VITAMIN D STATUS 25( [place])VITAMIN D RANGE (ng/mL) Deficient <20 Insufficient 20 to <30Sufficient 30 to 100Reference: Jovanni MF,Dominique NC, Gillian NINA, et al. Evaluation,treatment, and prevention of vitamin D deficiency; an Endocrine Society clinical practice guideline. JCEM. 2010; 96(7):1911-30. GFR/1.73 sq M.predicted MDRD (S/P/Bld) [Vol rate/Area] mL/min/{1.73_m2} [facility] Comment on above: GFR estimated refere nce range: According to KDOQI guidelines, <60 ml/min/1.73m2 is sufficient to diagnose a patient with chronic kidney disease. Nucleated RBC/100 WBC (Bld) [Ratio] 0.1 % 0-0.5 [facility] Creatinine Clearance (Chem N/A [facility] Valproic Acid (Depakene) Level 45.9 ug/mL 50.0-100.0 [facility] Comment on above: Last dose: - Protein [Mass/volume] in Ser um or Plasmaon 09-23-2020 Protein [Mass/Vol] 6.7 g/dL 6.1-7.9 [facility] Serum globulin measurement b y calculation (mass/volume)on 09-23-2020 Globulin (S) [Mass/Vol] 2.8 g/dL F [facility] Serum or plasma alanine george otransferase measurement without P-5'-P (enzymatic activion 09-23-2020 ALT No additional P-5'-P [Catalytic activity/Vol] 15 U/L 1060 [facility] Serum or plasma albumin/glob ulin mass ratioon 09-23-2020 Albumin/Globulin [Mass ratio] 1.4 {ratio} [facility] Serum or plasma alkaline lalo sphatase measurement (enzymatic activity/volume)on 09-23-2020 ALP [Catalytic activity/Vol] 52 U/L 3292 [facility] Serum or plasma aspartate am inotransferase measurement (enzymatic activity/volume)on 09-23-2020 AST [Catalytic activity/Vol] 16 U/L 1042 [facility] Serum or plasma calcium ashwini urement (mass/volume)on 09-23-2020 Calcium [Mass/Vol] 9.2 mg/dL 8.2-10.2 [facility] Serum or plasma chloride jett surement (moles/volume)on 09-23-2020 Chloride [Moles/Vol] 102 mmol/L 95-114 [facility] Serum or plasma creatinine m easurement with calculation of estimated glomerular filtron 09-23-2020 Creatinine [Mass/Vol] 0.67 mg/dL 0.44-1.03 [facility] Serum or plasma glucose ashwini urement (mass/volume)on 09-23-2020 Glucose [Mass/Vol] 122 mg/dL 70-100 [facility] Comment on above: ADA recommended refe rence rangeRandom Glucose Reference Range is dependent on time and content of last meal. Glucose of more than 200 mg/dL in a nonstressed, ambulatory subject supports the diagnosis of Diabetes Mellitus. Serum or plasma potassium me asurement (moles/volume)on 09-23-2020 Potassium [Moles/Vol] 4.8 mmol/L 3.5-5.1 [facility] Serum or plasma sodium measu rement (moles/volume)on 09-23-2020 Sodium [Moles/Vol] 136 mmol/L 136-146 [facility] Serum or plasma total biliru bin measurement (mass/volume)on 09-23-2020 Bilirubin [Mass/Vol] 0.2 mg/dL 0.3-1.2 [facility] Serum or plasma total carbon dioxide measurement (moles/volume)on 09-23-2020 CO2 [Moles/Vol] 23.0 mmol/L 22.0-30.0 [facility] Serum or plasma urea nitroge n measurement (mass/volume)on 09-23-2020 Urea nitrogen [Mass/Vol] 5 mg/dL 06-26 [facility] Lab - Other Lab Resultson Lab - Other Lab Results [id number] Summaryon 06-27-2019 Coding Summary CODING DATE: [address] [facility] STATUS: Home PAYOR: Medicaid O ADMIT DX: REASON FOR VISIT DX: [phone] [...] Piña Revised Date Saved: 06/27/2019 12:43 pm [facility] Provider Orderson 06-27-2019 Provider Orders [id number] Orders [id number] .Auto Diff 1on 06-26-2019 Auto [place] % 9 % Normal 10-15 [facility] Comment on above: Performed By: #### 1 [id number] #### [facility] (DEFAULT) [address] [place] [address] 68858 Baso Abs# 0.0 x10 Normal 0.0-0.2 [facility] Comment on above: Performed By: #### 1 [id number] #### [facility] (DEFAULT) [address] [place] [address] 08019 Basophils/100 WBC (Bld) 0.3 % Normal 0.2-2.0 [facility] Comment on above: Performed By: #### 1 [id number] #### [facility] (DEFAULT) [address] [place] [address] 10106 Eos Abs# 0.0 x10 Normal 0.0-0.4 [facility] Comment on above: Performed By: #### 1 [id number] #### [facility] (DEFAULT) [address] [place] [address] 25431 Eosinophils/100 WBC (Bld) 0.4 % Low 0.9-4.0 [facility] Comment on above: Performed By: #### 1 [id number] #### [facility] (DEFAULT) [address] [place] [address] 69624 Lymphocytes (Bld) [#/Vol] 3.7 x10 High 1.3-2.9 [facility] Comment on above: Performed By: #### 1 [id number] #### [facility] (DEFAULT) [address] [place] [address] 74905 Lymphocytes/100 WBC (Bld) 29 % Normal 14-48 [facility] Comment on above: Performed By: #### 1 [id number] #### [facility] (DEFAULT) [address] [place] [address] [place] Abs# 1.2 x10 High 0.0-0.8 [facility] Comment on above: Performed By: #### 1 [id number] #### [facility] (DEFAULT) [address] [place] [address] 27222 Neut Abs# 7.7 x10 Normal 1.5-9.2 [facility] Comment on above: Performed By: #### 1 [id number] #### [facility] (DEFAULT) [address] [place] [address] Neutrophils/100 WBC (Bld) 61 % Normal 44-88 [facility] Comment on above: Performed By: #### 1 [id number] #### [facility] (DEFAULT) [address] [place] [address] CBC w/ Auto Diffon Erythrocyte distribution width (RBC) [Ratio] 14.0 % Normal 11.5-15.0 [facility] Comment on above: Performed By: #### 1 [id number] #### [facility] (DEFAULT) [address] [place] [address] Hematocrit (Bld) [Volume fraction] 44.8 % High 33.7-40.4 [facility] Comment on above: Performed By: #### 1 [id number] #### [facility] (DEFAULT) [address] [place] [address] Hemoglobin (Bld) [Mass/Vol] 15.1 g/dL Normal 11.3-15.9 [facility] Comment on above: Performed By: #### 1 [id number] #### [facility] (DEFAULT) [address] [place] [address] Man Diff? Auto Normal [facility] Comment on above: Performed By: #### 1 [id number] #### [facility] (DEFAULT) [address] [place] [address] MCH (RBC) [Entitic mass] 30 pg Normal 24-34 [facility] Comment on above: Performed By: #### 1 [id number] #### [facility] (DEFAULT) [address] [place] [address] MCHC (RBC) [Mass/Vol] 34 g/dL Normal 26-37 [facility] Comment on above: Performed By: #### 1 [id number] #### [facility] (DEFAULT) [address] [place] [address] MCV (RBC) [Entitic vol] 89 fL Normal 81-100 [facility] Comment on above: Performed By: #### 1 [id number] #### [facility] (DEFAULT) [address] [place] [id number] Platelet mean volume (Bld) [Entitic vol] 9.5 fL Normal 6.3-10.2 [facility] Comment on above: Performed By: #### 1 [id number], [id number] #### [facility] (DEFAULT) [address] [place] [address]42 Platelets (Bld) [#/Vol] 301 x10 Normal 138-427 M [facility] Comment on above: Performed By: #### 1 [id number] #### [facility] (DEFAULT) [address] [place] [address] 28346 RBC (Bld) [#/Vol] 5.04 x10 Normal 3.70-5.30 [facility] Comment on above: Performed By: #### 1 [id number], [id number] #### [facility] (DEFAULT) [address] [place] [address] 58806 WBC (Bld) [#/Vol] 12.6 x10 [facility] Comment on above: Performed By: #### 1 [id number], [id number] #### [facility] (DEFAULT) [address] [place] [address] Lab - Other Lab Resultson Lab - Other Lab Results [id number]-16[facility]2019 Outside Records [id number] [id number] Vital Signs Date Time Vital Sign Value Performing Clinician Facility 10-16-2023 13:00-0500 Diastolic blood pressure 94 mm[Hg] OLEG Pettit Work Phone: [facility] 10-16-2023 13:00-0500 Heart rate 70 /min [employer]UP OPERATOR-[employer] Ajit Spasic Work Phone: [facility] 10-16-2023 13:00-0500 Respiratory rate 16 /min [employer] SETUP OPERATOR-C Ajit Spasic Work Phone: [facility] 10-16-2023 13:00-0500 SaO2% (BldA) [Mass fraction] 97 % [employer] SETUP OPERATOR-C Ajit Spasic Work Phone: [facility] 10-16-2023 13:00-0500 Systolic blood pressure 168 mm[Hg] [employer] SETUP OPERATOR-C Ajit Spasic Work Phone: [facility] 10-16-2023 09:33-0500 Body height 165.1 cm [employer]ACHINE SETUP OPERATOR-C Ajit Spasic Work Phone: [facility] 10-16-2023 09:33-0500 Body temperature 97.4 [degF] [employer] SETUP OPERATOR-C Ajit Spasic Work Phone: [facility] 10-16-2023 09:33-0500 Body weight 77.3 kg GL[employer] MACHINE SETUP OPERATOR-C Ajit Spasic Work Phone: [facility] 10-09-2023 16:00-0500 Body temperature 97.7 [degF] [employer]INE SETUP OPERATOR-C Ajit Spasic Work Phone: [facility] 10-09-2023 16:00-0500 Diastolic blood pressure 80 mm[Hg] [employer]ACHINE SETUP OPERATOR-C Ajit Spasic Work Phone: [facility] 10-09-2023 16:00-0500 Heart rate 85 /min [employer]ACHINE SETUP OPERATOR-C Ajit Spasic Work Phone: [facility] 10-09-2023 16:00-0500 Respiratory rate 18 /min GL[employer] MACHINE SETUP OPERATOR-C Ajit Spasic Work Phone: [facility] 10-09-2023 16:00-0500 SaO2% (BldA) [Mass fraction] 99 % [employer]ACHINE SETUP OPERATOR-C Ajit Spasic Work Phone: [facility] 10-09-2023 16:00-0500 Systolic blood pressure 117 mm[Hg] [employer]INE SETUP OPERATOR-C Ajit Spasic Work Phone: [facility] 10-08-2023 01:12-0500 Body height 165.1 cm [employer]INE SETUP OPERATOR-C Ajit Spasic Work Phone: [facility] 10-08-2023 01:12-0500 Body weight 76.65 kg GL[employer]ACHINE SETUP OPERATOR-C Ajit Spasic Work Phone: [facility] 09-28-2023 13:30-0500 Diastolic blood pressure 87 mm[Hg] GL[employer]ACHINE SETUP OPERATOR-C Ajit Spasic Work Phone: [facility] 09-28-2023 13:30-0500 Heart rate 94 /min GL[employer] MACHINE SETUP OPERATOR-C Ajit Spasic Work Phone: [facility] 09-28-2023 13:30-0500 Respiratory rate 18 /min GL[employer]ACHINE SETUP OPERATOR-C Ajit Spasic Work Phone: [facility] 09-28-2023 13:30-0500 SaO2% (BldA) [Mass fraction] 94 % [employer]ACHINE SETUP OPERATOR-C Ajit Spasic Work Phone: [facility] 09-28-2023 13:30-0500 Systolic blood pressure 131 mm[Hg] GL[employer] MACHINE SETUP OPERATOR-C Ajit Spasic Work Phone: [facility] 09-28-2023 09:30-0500 Body temperature 97.9 [degF] GL[employer] MACHINE SETUP OPERATOR-C Ajit Spasic Work Phone: [facility] 09-28-2023 08:51-0500 Inhaled oxygen flow rate 10 L/min [employer]INE SETUP OPERATOR-C Ajit Spasic Work Phone: [facility] 09-28-2023 07:20-0500 Body height 166.37 cm GL[employer]ACHINE SETUP OPERATOR-C Ajit Spasic Work Phone: [facility] 09-28-2023 07:20-0500 Body mass index (BMI) [Ratio] 27.7 kg/m2 [employer]INE SETUP OPERATOR-C Ajit Spasic Work Phone: [facility] 09-28-2023 07:20-0500 Body weight 76.7 kg GLUER MACHINE SETUP OPERATOR-C Ajit Spasic Work Phone: [facility] 07-13-2023 13:55-0400 Diastolic blood pressure 93 mm[Hg] NA [employer] Work Phone: [facility] 07-13-2023 13:55-0400 Heart rate 87 /min NA [employer] Work Phone: [facility] 07-13-2023 13:55-0400 Respiratory rate 16 /min NA [employer] Work Phone: [facility] 07-13-2023 13:55-0400 SaO2% (BldA) [Mass fraction] 96 % NA [employer] Work Phone: [facility] 07-13-2023 13:55-0400 Systolic blood pressure 133 mm[Hg] NA [employer] Work Phone: [facility] 07-13-2023 13:16-0400 Body temperature 98 [degF] NA [employer] Work Phone: [facility] 07-13-2023 12:51-0400 Inhaled oxygen flow rate 10 L/min NA [employer] Work Phone: [facility] 07-13-2023 12:17-0400 Body height 165.1 cm NA [employer] Work Phone: [facility] 07-13-2023 12:17-0400 Body mass index (BMI) [Ratio] 28.2 kg/m2 NA [employer] Work Phone: [facility] 07-13-2023 12:17-0400 Body weight 77 kg NA [employer] Work Phone: [facility] 05-05-2023 10:18-0400 Diastolic blood pressure 90 mm[Hg] GL[employer] MACHINE SETUP OPERATOR-C Ajit Spasic Work Phone: [facility] 05-05-2023 10:18-0400 Heart rate 82 /min [employer]ACHINE SETUP OPERATOR-C Ajit Spasic Work Phone: [facility] 05-05-2023 10:18-0400 Respiratory rate 18 /min GL[employer]ACHINE SETUP OPERATOR-C Ajit Spasic Work Phone: [facility] 05-05-2023 10:18-0400 SaO2% (BldA) [Mass fraction] 98 % GL[employer] MACHINE SETUP OPERATOR-C Ajit Spasic Work Phone: [facility] 05-05-2023 10:18-0400 Systolic blood pressure 130 mm[Hg] GL[employer] MACHINE SETUP OPERATOR-C Ajit Spasic Work Phone: [facility] 05-05-2023 09:39-0400 Inhaled oxygen flow rate 3 L/min [employer] MACHINE SETUP OPERATOR-C Ajit Spasic Work Phone: [facility] 05-05-2023 08:43-0400 Body height 165.1 cm GL[employer] MACHINE SETUP OPERATOR-C Ajit Spasic Work Phone: [facility] 05-05-2023 08:43-0400 Body weight 74.84 kg GLU[employer] MACHINE SETUP OPERATOR-C Ajit Spasic Work Phone: [facility] 04-14-2023 12:08-0400 Diastolic blood pressure 89 mm[Hg] GL[employer] MACHINE SETUP OPERATOR-C Ajit Spasic Work Phone: [facility] 04-14-2023 12:08-0400 Heart rate 71 /min GLUER MACHINE SETUP OPERATOR-C Ajit Spasic Work Phone: [facility] 04-14-2023 12:08-0400 Respiratory rate 16 /min GLU[employer] MACHINE SETUP OPERATOR-C Ajit Spasic Work Phone: [facility] 04-14-2023 12:08-0400 SaO2% (BldA) [Mass fraction] 97 % GLU[employer] MACHINE SETUP OPERATOR-C Ajit Spasic Work Phone: [facility] 04-14-2023 12:08-0400 Systolic blood pressure 124 mm[Hg] GLUER MACHINE SETUP OPERATOR-C Ajit Spasic Work Phone: [facility] 04-14-2023 11:29-0400 Inhaled oxygen flow rate 3 L/min GLUER MACHINE SETUP OPERATOR-C Ajit Spasic Work Phone: [facility] 04-14-2023 10:19-0400 Body height 165.1 cm GLUER MACHINE SETUP OPERATOR-C Ajit Spasic Work Phone: [facility] 04-14-2023 10:19-0400 Body weight 74.84 kg GLUER MACHINE SETUP OPERATOR-C Ajit Spasic Work Phone: [facility] 04-02-2023 11:30-0400 Body height 166.37 cm Kyler Miramontes Other [employer] [facility] [employer] Other 04-02-2023 11:30-0400 Body mass index (BMI) [Ratio] 27.04 kg/m2 Kyler Miramontes Other [employer] Other 04-02-2023 11:30-0400 Body weight 74.84 kg Kyler Miramontes Other [employer] Other 04-02-2023 11:30-0400 Diastolic blood pressure 80 mm[Hg] Kyler Miramontes Other [employer] Other 04-02-2023 11:30-0400 Systolic blood pressure 110 mm[Hg] Kyler Miramontes Other [employer] Other 11-18-2022 11:59-0500 Diastolic blood pressure 94 mm[Hg] [facility] Work Phone: [facility] 11-18-2022 11:59-0500 Heart rate 85 /min Services [facility] [email or web address] Work Phone: [facility] 11-18-2022 11:59-0500 Respiratory rate 16 /min Services [facility] [email or web address] Work Phone: [facility] 11-18-2022 11:59-0500 SaO2% (BldA) [Mass fraction] 98 % Services [facility] [email or web address] Work Phone: [facility] 11-18-2022 11:59-0500 Systolic blood pressure 140 mm[Hg] [facility] [email or web address] Work Phone: [facility] 11-18-2022 11:21-0500 Inhaled oxygen flow rate 3 L/min [facility] [email or web address] Work Phone: [facility] 11-18-2022 09:23-0500 Body height 166.37 cm Services [facility] [email or web address] Work Phone: [facility] 11-18-2022 09:23-0500 Body weight 74.38 kg [facility] [email or web address] Work Phone: [facility] 11-03-2022 11:30-0500 Body height 166.37 cm Kyler Miramontes Other [employer] Other 11-03-2022 11:30-0500 Diastolic blood pressure 80 mm[Hg] Kyler Miramontes Other [employer] Other 11-03-2022 11:30-0500 SaO2% (BldA) [Mass fraction] 98 % Kyler Miramontes Other [employer] Other 11-03-2022 11:30-0500 Systolic blood pressure 118 mm[Hg] Kyler Miramontes Other [employer] Other 07-31-2022 11:50-0400 Blood Pressure Location [employer] [facility] 07-31-2022 11:50-0400 Diastolic blood pressure 82 mm[Hg] Joshua PRESTON [facility] 07-31-2022 11:50-0400 Heart rate 70 /min [employer] [facility] 07-31-2022 11:50-0400 Respiratory rate 16 /min [employer] [facility] 07-31-2022 11:50-0400 Systolic blood pressure 136 mm[Hg] [employer] [facility] 05-27-2022 09:13-0400 Body temperature 97.9 [degF] Services [facility] [employer] Work Phone: [facility] 05-27-2022 09:13-0400 Body weight 77.11 kg Services [facility] [employer] Work Phone: [facility] 05-27-2022 09:13-0400 Diastolic blood pressure 82 mm[Hg] Services [facility] [employer] Work Phone: [facility] 05-27-2022 09:13-0400 Heart rate 70 /min Services [facility] [employer] Work Phone: [facility] 05-27-2022 09:13-0400 Respiratory rate 20 /min Services [facility] [employer] Work Phone: [facility] 05-27-2022 09:13-0400 SaO2% (BldA) [Mass fraction] 98 % Services [facility] [employer] Work Phone: [facility] 05-27-2022 09:13-0400 Systolic blood pressure 121 mm[Hg] Services [facility] [employer] Work Phone: [facility] 05-27-2022 08:06-0400 Body height 166.37 cm [facility] Work Phone: [facility] 05-01-2022 22:19-0400 Diastolic blood pressure 70 mm[Hg] [facility] Work Phone: [facility] 05-01-2022 22:19-0400 Heart rate 86 /min Services [facility] Work Phone: [facility] 05-01-2022 22:19-0400 Respiratory rate 18 /min Services [facility] Work Phone: [facility] 05-01-2022 22:19-0400 SaO2% (BldA) [Mass fraction] 99 % Services [facility] Work Phone: [facility] 05-01-2022 22:19-0400 Systolic blood pressure 138 mm[Hg] Services [facility] Work Phone: [facility] 05-01-2022 17:09-0400 Body height 166.37 cm Services [facility] Work Phone: [facility] 05-01-2022 17:09-0400 Body temperature 99.4 [degF] Services [facility] Work Phone: [facility] 05-01-2022 17:09-0400 Body weight 77.8 kg Services [facility] Work Phone: [facility] 04-29-2022 14:29-0400 Body height 165.1 cm Services [facility] Work Phone: [facility] 04-29-2022 14:29-0400 Body temperature 97.8 [degF] Services [facility] Work Phone: [facility] 04-29-2022 14:29-0400 Body weight 68.03 kg Services [facility] Work Phone: [facility] 04-29-2022 14:29-0400 Diastolic blood pressure 83 mm[Hg] Services [facility] Work Phone: [facility] 04-29-2022 14:29-0400 Heart rate 70 /min Services [facility] [email or web address] Work Phone: [facility] 04-29-2022 14:29-0400 Respiratory rate 16 /min Services [facility] [email or web address] Work Phone: [facility] 04-29-2022 14:29-0400 SaO2% (BldA) [Mass fraction] 100 % Services [facility] [email or web address] Work Phone: [facility] 04-29-2022 14:29-0400 Systolic blood pressure 131 mm[Hg] Services [facility] [email or web address] Work Phone: [facility] 02-19-2022 15:45-0400 Body height 166.37 cm Kyler Miramontes Other [employer] [facility] [employer] Other 02-19-2022 15:45-0400 Body mass index (BMI) [Ratio] 27.36 kg/m2 Kyler Miramontes Other [employer] Other 02-19-2022 15:45-0400 Body weight 75.75 kg Kyler Miramontes Other [employer] Other 02-19-2022 15:45-0400 Diastolic blood pressure 64 mm[Hg] Kyler Miramontes Other [employer] Other 02-19-2022 15:45-0400 Systolic blood pressure 110 mm[Hg] Kyler Miramontes Other [employer] Other 01-28-2022 14:00-0400 Body height 166.37 cm Kyler Miramontes Other [employer] Other 01-28-2022 14:00-0400 Body mass index (BMI) [Ratio] 27.27 kg/m2 Kylerjocelyn Miramontes Other [employer] Other 01-28-2022 14:00-0400 Body weight 75.48 kg Kyler Miramontes Other [employer] Other 01-28-2022 14:00-0400 Diastolic blood pressure 68 mm[Hg] Kyler Miramontes Other [employer] Other 01-28-2022 14:00-0400 Systolic blood pressure 112 mm[Hg] Kyler Miramontes Other [employer] Other 01-14-2022 12:00-0400 Body height 166.37 cm Girish Elsdeb Other [employer] Other 01-14-2022 12:00-0400 Body mass index (BMI) [Ratio] 25.23 kg/m2 Girish Callaway Other [employer] Other 01-14-2022 12:00-0400 Body weight 69.85 kg Girish Okeefedeb Other [employer] Other Encounters Encounter Date Encounter Type Care Provider Facility Start: 10-16-2023 End: 10-16-2023 Emergency department patient visit Diego Noble Facility:[facility] Start: 10-16-2023 End: 10-16-2023 Emergency department patient visit GLUER MACHINE SETUP OPERATOR-C Ajit Pettit Work Phone: [facility]-Emergency Room Work Phone: Start: 10-08-2023 End: 10-09-2023 Evaluation and management of inpatient Salazar Cabrera Facility:[facility] Start: 10-07-2023 End: 10-09-2023 Evaluation and management of inpatient GLUER MACHINE SETUP OPERATOR-C Ajit Pettit Work Phone: [facility]-[address] Work Phone: Start: 09-28-2023 End: 09-28-2023 ambulatory Ajit E Spasic Facility:[facility] Start: 09-28-2023 End: 09-28-2023 Admission to same day surgery center GLUER MACHINE SETUP OPERATOR-C Ajit Spasic Work Phone: [facility] [place] Start: 09-16-2023 End: 09-16-2023 ambulatory Ajit E Spasic Facility:[facility] Start: 09-16-2023 End: 09-16-2023 ambulatory GLUER MACHINE SETUP OPERATOR-C Ajit E Spasic Work Phone: [facility] Work Phone: Start: 09-16-2023 End: 09-16-2023 Patient encounter procedure 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 [employer] Work Phone: [facility] Work Phone: Start: 06-30-2023 End: 06-30-2023 ambulatory Ajit E Spasic Facility:[facility] Start: 06-30-2023 End: 06-30-2023 ambulatory . 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 Work Phone: [facility]-Digestive [facility] Work Phone: Start: 05-05-2023 End: 05-05-2023 ambulatory NON STAFF [facility] Work Phone: Start: 05-04-2023 End: 05-04-2023 ambulatory Ajit E Spasic Facility:[facility] Start: 05-04-2023 End: 05-04-2023 ambulatory NON STAFF [facility] Work Phone: Start: 05-04-2023 End: 05-04-2023 Departed Referred 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 SETUP 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-C Ajit Spasic Work Phone: [facility] Start: 04-26-2023 End: 04-26-2023 ambulatory Ajit E Spasic Facility:[facility] Start: 04-26-2023 End: 04-26-2023 Patient encounter procedure 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 MACHINE SETUP OPERATOR-C Ajit Spasic Work Phone: [facility] [place] Work Phone: Start: 04-14-2023 (PROC) PROCEDURE Kyler Joyner [facility] Start: 04-14-2023 End: 04-14-2023 Admission to same day surgery center GLUER MACHINE SETUP OPERATOR-C Ajit Spasic Work Phone: [facility] Work Phone: Start: 04-14-2023 End: 04-14-2023 ambulatory NON STAFF [employer] Other Start: 04-02-2023 End: 04-02-2023 ambulatory Kyler Miramontes Other [employer] Other Start: 04-02-2023 Office outpatient vi sit 25 minutes Kyler Miramontes [facility] Start: 02-15-2023 End: 02-15-2023 ambulatory AJIT SPASIC Facility:[facility] Start: 02-09-2023 End: 02-09-2023 ambulatory Ajit E Spasic Facility:[facility] Start: 02-09-2023 End: 02-09-2023 ambulatory Services [facility] Work Phone: [facility] Work Phone: Start: 02-09-2023 End: 02-09-2023 Departed Referred Services [facility] Work Phone: [facility] Services Start: 01-29-2023 End: 01-29-2023 ambulatory AJIT SPASIC Facility:[facility] Start: 12-29-2022 ambulatory Joshua Roselyn PRESTON Facility :[facility] Start: 11-18-2022 (PROC) PROCEDURE Kyler Miramontes [facility] Start: 11-18-2022 End: 11-18-2022 Admission to same day surgery center Services [facility] Work Phone: [facility] Work Phone: Start: 11-18-2022 End: 11-18-2022 ambulatory Services [facility] Work Phone: [facility] Work Phone: Start: 11-12-2022 End: 11-12-[address] DERICK BORRERO . Facility:[facility] Start: 11-05-2022 End: 11-05-2022 ambulatory Services [facility] Facility:[facility] Start: 11-05-2022 End: 11-05-2022 ambulatory Services [facility] Work Phone: [facility] Work Phone: Start: 11-05-2022 End: 11-05-2022 Departed Referred Services [facility] Work Phone: [facility] Services Start: 11-03-2022 Office outpatient vi sit 25 minutes Kyler Miramontes [facility] Start: 11-03-2022 End: 11-03-2022 ambulatory Services [facility] [employer] Other Start: 11-03-2022 End: 11-03-2022 Patient encounter procedure Services [facility] Work Phone: [facility] Work Phone: Start: 11-02-2022 End: 11-03-2022 ambulatory Joshua PRESTON Facility: [place] Start: 11-02-2022 End: 11-02-2022 Patient encounter procedure Joshua PRESTON [facility] Start: 09-29-2022 End: 09-30-2022 ambulatory Joshua PRESTON Facility:[facility] Start: 09-29-2022 End: 09-29-2022 Patient encounter procedure Joshua PRESTON [facility] Start: 08-24-2022 End: 08-25-2022 ambulatory Joshua PRESTON Facility:[facility] Start: 08-24-2022 End: 08-24-2022 Patient encounter procedure Joshua PRESTON [facility] Start: 07-31-2022 End: 08-01-2022 ambulatory BELTRAN PAVON Facility:[facility] Start: 07-31-2022 End: 07-31-2022 Patient encounter procedure [facility] Start: 07-08-2022 End: 07-08-2022 ambulatory Services [facility] Work Phone: [facility] Work Phone: Start: 07-08-2022 End: 07-08-2022 Patient encounter procedure Services [facility] Work Phone: [facility] [place] Start: 06-24-2022 End: 06-24-2022 Patient encounter procedure [facility] Work Phone: [facility] [place] Start: 06-17-2022 End: 06-17-2022 Patient encounter procedure [facility] Work Phone: [facility] [place] Start: 06-09-2022 End: 06-09-2022 Patient encounter procedure [facility] Work Phone: [facility] [place] Start: 06-02-2022 End: 06-02-2022 Departed Referred Services [facility] Work Phone: [facility] Start: 05-27-2022 End: 05-27-2022 Registered Recurring Services [facility] Work Phone: [facility]-Cancer Center Start: 05-07-2022 End: 05-07-2022 Patient encounter procedure [facility] Work Phone: [facility] [place] Start: 05-01-2022 End: 05-01-2022 Emergency department patient visit [facility] Work Phone: [facility]-Emergency Room Start: 05-01-2022 End: 05-01-2022 Patient encounter procedure [facility] Work Phone: [facility] [place] Start: 04-30-2022 End: 04-30-2022 Departed Referred Services [facility] Work Phone: [facility] Start: 04-29-2022 End: 04-29-2022 Emergency department patient visit [facility] Work Phone: [facility] Start: 03-04-2022 (Procedure) Short Kyler Miramontes [facility] Medical OutPt Start: 03-04-2022 End: 03-04-2022 ambulatory Kyler Miramontes Other [facility] Other Start: 02-19-2022 End: 02-19-2022 ambulatory Kyler Miramontes Other [facility] Other Start: 02-19-2022 Office outpatient vi sit 25 minutes Kyler Miramontes [facility] Start: 02-11-2022 (Procedure) Short Kyler Miramontes [facility] Start: 02-11-2022 End: 02-11-2022 ambulatory Kyler Miramontes Other [facility] Other Start: 01-28-2022 End: 01-28-2022 ambulatory Kyler Miramontes Other [facility] Other Start: 01-28-2022 Office consultation new/estab patient 60 min Kyler Miramontes [facility] Start: 01-14-2022 End: 01-14-2022 ambulatory Girish Callaway Other [facility] Other Start: 01-14-2022 Office outpatient ne w 30 minutes Girish Callaway [facility] Start: 01-21-2021 End: 01-21-2021 Departed Referred [facility] Work Phone: -[place] [facility] Services Start: 12-24-2020 End: 12-24-2020 Patient encounter procedure Ajit Spasic -[facility] Start: 12-03-2020 End: 12-03-2020 Patient encounter procedure Ajit Spasic -[facility] Start: 12-02-2020 End: 12-02-2020 Patient encounter procedure Ajit Spasic -[facility] Start: 11-05-2020 End: 11-05-2020 Departed Referred Ajit Millanc -[place] [facility] Start: 10-22-2020 End: 10-22-2020 Patient encounter procedure Ajit Lariosryanc -XRay [facility] Start: 09-23-2020 End: 09-23-2020 Patient encounter procedure Ajit Sparyanc -[facility] Procedures Date Procedure Procedure Detail Performing Clinician Start: 10-09-2023 Stool culture for bacteria GLUER MACHINE SETUP OPERATOR-C Ajit Spasic Work Phone: Start: 10-08-2023 Computed tomography of abdomen and pelvis with contrast GLUER MACHINE SETUP OPERATOR-C Ajit Spasic Work Phone: Start: 09-28-2023 Total hysterectomy v ia vaginal approach GLUER MACHINE SETUP OPERATOR-C Ajit Spasic Work Phone: Start: 09-16-2023 Antibody screen Ajit corrales Comment on above: Order Comment: Date of Surgery: [id number] Result Comment: PERF ORMED BY: [facility] [address] [place] [address] PATHOLOGIST OIL TRUCK DRIVER RIDGE HUERTA M.D. Start: 07-13-2023 Hysteroscopy NA [facility] Work Phone: Start: 06-30-2023 Antibody screen Ajit corrales Comment on above: Order Comment: Date of Surgery: [id number] Result Comment: PERF ORMED BY: [facility] [address] [place] [address] PATHOLOGIST OIL TRUCK DRIVER RIDGE HUERTA M.D. Start: 05-05-2023 Injection of local a nesthetic into sacroiliac joint GLUER MACHINE SETUP OPERATOR-C Ajit Spasic Work Phone: Start: 05-04-2023 Urine culture NA [facility] Work Phone: Start: 04-26-2023 Radiography of thoracic spine GLUER MACHINE SETUP OPERATOR-C Ajit Spasic Work Phone: Start: 04-14-2023 Epidural injection o f lumbar spine using fluoroscopic guidance GLUER MACHINE SETUP OPERATOR-C Ajit Spasic Work Phone: Start: 02-09-2023 Urine culture GLUER MACHINE SETUP OPERATOR-C Piero a Spasic Work Phone: Start: 11-18-2022 Injection of spinal epidural space [facility] Work Phone: Start: 11-05-2022 Urine culture [facility] Work Phone: Start: 11-03-2022 X-ray of cervical spine Services [facility] [email or web address] Work Phone: Start: 08-24-2022 Cystourethroscopy wi th dilation of urethral stricture Joshua PRESTON Start: 06-24-2022 MRI of head Services [facility] [email or web address] Work Phone: Start: 06-17-2022 Transvaginal echography Services [facility] [email or web address] Work Phone: Start: 06-17-2022 Pelvic echography Servi sharri [facility] Work Phone: Start: 06-09-2022 US scan of bladder Serv ices [facility] [email or web address] Work Phone: Start: 05-01-2022 Computed tomography of abdomen and pelvis with contrast Services [facility] [email or web address] Work Phone: Start: 05-01-2022 X-ray of right knee Ser [facility] [email or web address] Work Phone: Start: 04-29-2022 X-ray of left ankle Ser [facility] [email or web address] Work Phone: Start: 12-24-2020 MRI of left [...] of cervical spine Ajit Spasic Appendectomy Joshua PRESTON Blood culture for ba cteria, including anaerobic screen Services [facility] [email or web address] Work Phone: Blood culture for ba cteria, including anaerobic screen Services [facility] [email or web address] Work Phone: Cholecystectomy Joshua PRESTON H/O: hysterectomy S/P hysterectomy GLUER MACHINE SETUP OPERATOR-C L aura Spasic Work Phone: Urine culture Services [facility] Work Phone: Plan of Treatment Date Care Activity Detail Author Start: 10-16-2023 Bacteria identified in Blood by Culture [facility] Start: 10-16-2023 [facility] Start: 10-09-2023 Stool culture Stool Culture [facility] Start: 10-09-2023 [facility] Start: 10-09-2023 Referral to veterinary microbiologist [facility] Start: 10-08-2023 Hospital admission [facility] Start: 10-08-2023 [facility] Start: 10-07-2023 Referral to clinical jack spooler tender [facility] Start: 09-28-2023 Hospital admission [facility] Start: 09-28-2023 [facility] Start: 07-13-2023 End: 07-13-2023 [facility] Start: 05-05-2023 [facility] Start: 05-04-2023 Bacteria identified in Urine by Culture Urine Culture [facility] Start: 05-04-2023 Urine culture Urine Culture [facility] Start: 04-14-2023 [facility] Start: 02-09-2023 Bacteria identified in Urine by Culture [facility] Start: 11-18-2022 [facility] Start: 11-05-2022 Bacteria identified in Urine by Culture [facility] Start: 06-02-2022 End: 06-02-2022 Departed Referred Departed Referred [facility] Start: 05-27-2022 Registered Recurring Iron deficiency [facility] Start: 05-27-2022 [facility] Start: 05-07-2022 End: 05-07-2022 Patient encounter procedure Departed Clinical [facility] Start: 05-01-2022 Computed tomography of abdomen and pelvis with contrast CT abdomen pelvis w con [facility] Start: 05-01-2022 End: 05-01-2022 Emergency department patient visit Departed Emergency [facility]gency Room Atopobium vaginae DN A [Presence] in Vaginal fluid by NAYELY with probe detection [facility] Bacterial vaginosis associated bacterium 2 DNA [Presence] in Vaginal fluid by NAYELY with probe detection [facility] Chlamydia trachomati s rRNA [Presence] in Cervix by NAYELY with probe detection [facility] Glucose measurement estimated from glycated hemoglobin [facility] Hemoglobin A1c/Hemoglobin.total in Blood [facility] Human papilloma viru s 16+18+31+33+35+39+45+51+5 2+56+58+59+66+68 DNA [Presence] in Cervix by Probe with signal amplification [facility] Human papilloma viru s 16+18+31+33+35+39+45+51+5 2+56+58+59+68 DNA [Presence] in Cervix by Probe with signal amplification [facility] Megasphaera sp type 1 DNA [Presence] in Vaginal fluid by NAYELY with probe detection [facility] Neisseria gonorrhoea e rRNA [Presence] in Cervix by NAYELY with probe detection [facility] Patient Education [facility] Work Phone: Patient referral [facility] Work Phone: [facility] Immunizations Immunization Date Immunization Notes Care Provider Fa paula 09-19-2021 COVID-19 mRNA, [facility] Work [facility] 08-29-2021 COVID-19 mRNA, Comirnaty (Pfizer) NA [facility] Work Phone: [facility] NEGATED: Highlighted row has not occurred!10-27-2019 influenza virus vaccine, live, attenuated, for intranasal use Joshua PRESTON [facility] Payers Date Payer Category Payer Self-pay [id number] 2019 Unknown [id number] 1979 Unknown [id number] 2.16.8 40.1.216009.3.579.2.727 1979 Unknown [id number] .16.8 40.1.871952.3.579.2.727 1979 Unknown [id number] .16.8 40.1.588613.3.579.2.727 1979 Unknown [id number] .16.8 40.1.468828.3.579.2.727 1979 Unknown [id number] .16.8 40.1.852249.3.579.2.727 1979 Unknown [id number] .16.84 0.1.691697.3.579.2.593 1979 Unknown [id number] .16.84 0.1.358323.3.579.2.593 1979 Unknown [id number] .16.84 0.1.595271.3.579.2.593 1960 Medicaid [id number] 50 [id number] Unknown [id number] Unknown [id number] 2.16.8 40.1.569662.3.579.2.531 Unknown [id number] .16.8 40.1.200023.3.579.2.531 Unknown [id number] .16.8 40.1.619519.3.579.2.531 Unknown [id number] .16.8 40.1.261355.3.579.2.531 Unknown [id number] .16.8 40.1.571627.3.579.2.531 Unknown [id number] .16.8 40.1.957516.3.579.2.531 Unknown [id number] .16.8 40.1.195976.3.579.2.531 Unknown [id number] .16.8 40.1.133256.3.579.2.531 Unknown [id number] 2.16.8 40.1.951021.3.579.2.531 Unknown [id number] 2.16.8 40.1.467201.3.579.2.531 Unknown [id number] 2.16.8 40.1.048700.3.579.2.531 Unknown [id number] 2.16.8 40.1.919597.3.579.2.531 Unknown [id number] 2.16.8 40.1.619693.3.579.2.531 Unknown [id number] 2.16.8 40.1.034829.3.579.2.531 Social History Date Type Detail Facility Start: 09-25-2019 End: 10-16-2023 Tobacco smoking status NHIS Smoker (finding) [facility] Start: 1980 Sex Assigned At Female F [facility] Sex Assigned At [facility] Start: 07-31-2022 Tobacco smoking status Heavy t obacco smoker (finding) [facility] Goals Date Patient Goal Desired Activity /State Functional Status Date Assessment Result Facility 10-09-2023 Functional status Patient at Baseline [facility] Work Phone: 11-02-2022 Functional Status N/A [facility] 08-24-2022 Functional Status N/A [facility] 07-31-2022 Functional Status N/A [facility] Mental Status Date Assessment Result Facility 10-09-2023 Cognitive function Cognitive Sta tus Patient at Baseline [facility] Work Phone: Clinical Notes 01-14-2022 to 10-09-2023 Note Date & Type Note Facility 10-09-2023 Discharge summary Note Date/Time October 09, 2023 1:22pm [facility] [address] [place] [id number] Discharge Summary Signed Patient: Rachel Mcgarry MR#: [id number] : 1980 Acct:[id number] Age/Sex: 43 / F Adm Date: 4 Loc: Room: 6A0138-[address]: Salazar Cabrera DO Copies to: OLEG Sharp APRN Shawn J Warner, DO~ Providers Date of Admission: 10/08/23 Date of Discharge: 10/09/23 Discharging Provider: Salazar Cabrera Additional Discharging Provider: Salazar Cabrera Primary Care Provider: Ajit Pettit Consults: 10/07/23 23:27 Consult to Adult Hospitalist Routine 10/08/23 07:21 Consult to superintendent construction Routine 10/09/23 06:50 Consult to Obstetrics Routine Discharge Diagnosis (1) Abdominal pain: (2) Metabolic acidosis: (3) S/P hysterectomy: (4) T2DM (type 2 diabetes mellitus): (5) History of leukocytosis: (6) Clostridioides difficile diarrhea: Final Diagnosis Final Discharge Diagnosis: IBS?D Enteritis Clostridium difficile Recent hysterectomy 09/28 Chronic leukocytosis Abdominal pain Metabolic acidosis Summary Hospital Course Hospital course: This 43-year-old female past medical history significant for Seizure disorder, urinary retention, fibromyalgia, type 2 diabetes, depression, IBS, chronic leukocytosis, recent hysterectomy/bilateral salpingectomy 09/28/2023. She presented to outside hospital initially with abdominal pain. CT abdomen pelvis done at [facility] showed nonspecific hyperemia and thickening of the small bowel distally suggestive of enteritis but nonacute otherwise and no postoperative complications were noted. She was transferred to [facility] for evaluation by recent surgical team. She was noted to have elevated lactate and given IV hydration as well as Zosyn. Lactate resolved with hydration. She had repeat CTdone at [facility] with bloating and pain increasing with liquid intake unchangedfrom previous and no surgical complications again noted. DIRECTOR SALES services followed ongoing through hospital stay. She was also seen by psychiatry with increase insertraline due to reports of depression and suicidal thoughts, should [facility] with [facility] after discharge. Date of discharge she was tolerating advanced diet, had improvement in pain, still had some diarrhea mixedwater and soft consistency stool. Stool for C. difficile was positive on date of DC, 10 Day Rx Vancomycin PO sent. She should follow-up with primary care posthospital stay and keep postsurgical visit previously scheduled. I personally saw this patient on the day of the encounter, reviewed the history,performed the brandon elements of the exam, formulated the plan of care and confirmed the Nurse Practitioner's assessment and plan. - Salazar Cabrera DO Time Spent with Patient Time spent providing/coordinating discharge services (# min): 40 Diagnostic Studies Completed and Pending Studies Pending studies at discharge: 10/09/23 08:21 Stool Culture Stat 10/10/23 05:00 BMP [Basic Metabolic Panel] [CHEM] IN AM CBC [Complete Blood Count Auto Diff] IN AM Preliminary micro results at discharge 10/09/23 08:21 Stool Culture - Pending Stool Labs on day of discharge: 10/09/23 12:15: POC Glucose 299, POC Glucose Comment Glu2: cleaned meter 10/09/23 09:13: POC Glucose 188, POC Glucose Comment Glu2: cleaned meter 10/09/23 05:45: PHA Creatinine Clear 153.15, Sodium 136, Potassium 3.4 L, Chloride 105, Carbon Dioxide 22.6, Anion Gap 11.8, BUN 6 L, Creatinine 0.48 L, Est GFR (CKD-EPI) > 60.0, Glucose 143 H, Calcium 7.9 L 10/09/23 05:45: Corrected WBC 13.6 H, Uncorrected WBC Count 13.6 H, RBC 3.44 L, Hgb 10.3 L, Hct 30.3 L, MCV 88.1, MCH 29.9, MCHC 34.0, RDW 13.2, Plt Count 242, MPV 7.9, Neut % (Auto) 70.1, Lymph % (Auto) 16.5, [place] % (Auto) 9.5, Eos % (Auto) 3.5, Baso % (Auto) 0.4, Nucleat RBC Rel Count 0.1, Neut # (Auto) 9.6 H, Lymph # (Auto) 2.2, [place] # (Auto) 1.3 H, Eos # (Auto) 0.5 H, Baso # (Auto) 0.1 10/08/23 22:27: POC Glucose 194 10/08/23 18:21: POC Glucose 265, POC Glucose Comment Glu2: cleaned meter Exam Physical Exam Vital Signs: Temp Pulse Resp BP Pulse Ox O2 Del Method 97.7 F 75 18 116/79 97 Room Air 10/09/23 12:00 10/09/23 12:00 10/09/23 12:00 10/09/23 12:00 10/09/23 12:10/09/23 12:00 Narrative: CONST-alert, up in room, no distress at rest CARD- RRR no abnormal heart tones PULM- dimin without wheeze or rhonchi, RA ABD-soft, generalized tenderness with palpation, NABS passing flatus EXTREM- no edema BLE, calves nontender Skin?lap sites x 3 healing well no drainage erythema Discharge Plan Discharge Plan Patient Disposition: Home Activity: Other Diet: Regular Additional Instructions: Follow any previous post-op orders. Instructions: Irritable Bowel Syndrome (DC), Clostridioides difficile (DC), Enterovirus (DC) Prescriptions: New dicyclomine 10 mg Capsule 10 mg PO TID Qty: 0 0RF sertraline 50 mg Tablet 150 mg PO HS Qty: 30 0RF vancomycin [Vancocin] 125 mg capsule 125 mg PO QID 10 Days Qty: 40 0RF Continued multivitamin Tablet 1 tab PO QAM gabapentin 600 mg Tablet 800 mg PO QID tizanidine 4 mg Tablet 8 mg PO Q8H PRN (Reason: Muscle Spasm) divalproex [Depakote] 250 mg Tablet,Delayed Release (Dr/Ec) 500 mg PO BID Patient Comments: Pt states she hasn't been able to take it for a couple of weeks, doxazosin [Cardura] 2 mg tablet 2 mg PO QHS ketorolac 10 mg Tablet 10 mg PO Q6H PRN (Reason: Pain) Trulicity 1.5 mg/0.5 mL pen injector 1.5 mg SUBCUT QWEEK Rx Instructions: Wednesday ergocalciferol (vitamin D2) 1,250 mcg (50,000 unit) capsule 50,000 unit PO QWEEK Rx Instructions: Wednesday' Vraylar 1.5 mg capsule 1.5 mg PO QAM dicyclomine 10 mg Capsule 10 mg PO BID PRN (Reason: IBS) Qty: 1 0RF Rx Instructions: take 3x daily for the next several days divalproex [Depakote] 250 mg Tablet,Delayed Release (Dr/Ec) 250 mg PO QNOON Patient Comments: in afternoon diazepam [Valium] 5 mg Tablet 5 mg PO BID acetaminophen [Tylenol] 325 mg Capsule 325 mg PO BID melatonin 10 mg Tablet 10 mg PO QHS lorazepam 0.5 mg Tablet 0.5 mg PO DAILY PRN (Reason: Anxiety) Patient Comments: only for extreme panic attacks meclizine 25 mg Tablet 25 mg PO DAILY PRN (Reason: Vertigo) Rx Instructions: every 6-8 hours prn. 1/2 to 1 simvastatin 20 mg Tablet 20 mg PO QHS meloxicam 15 mg Tablet 15 mg PO QAM Held metformin 500 mg Tablet 500 mg PO BID Hold Instructions: Resume on 10/11/23. Discontinued sertraline [Zoloft] 100 mg Tablet 100 mg PO QHS Follow Up: [facility] [Provider Group] [facility] [Outside] (call to schedule follow up appointment) Marty Hinds DO [Active Staff - D.O.] - (keep appointment as schedule) Ajit Pettit GLUER MACHINE SETUP OPERATOR-C [Primary Care Provider] - (call to schedule follow up appointment post hospitalization) Documented By: Ilene Lopez APRN 03/27 1322 Signed By: <Electronically signed by CHRISTINA Lopez> 10/09/23 1627 <Electronically signed by Salazar Cabrera DO> 10/09/23 1842 [facility] Work Phone: 1(911) 485-226201-06-2024 Progress note Author -LINDA Pavon [facility] October 09, 2023 8:22am Note Date/Time October 09, 2023 8: 22am [facility] [address] [place] [address] Progress Note Signed Patient: Rachel Mcgarry MR#: [id number] : 1980 Acct:[id number] Age/Sex: 43 / F Adm Date: 4 Loc: Room: [address] [place] [address] Type: ADM IN Attending Dr: Salazar Cabrera DO Copies to: ~ Date of Service: 10/09/2023 Subjective History of Present Illness HPI: Pt admitted for pain noted postoperatively CT scan showed enteritis Pt is tolerating po well She has diarrhea frequently She denies fever or emesis Exam Physical Exam Vital Signs: Temp Pulse Resp BP Pulse Ox O2 Del Method 98.7 F 74 16 111/77 95 Room Air 10/09/23 00:23 10/09/23 03:56 10/09/23 03:56 10/09/23 03:56 10/09/23 03:56 10/09/23 03:56 Const General: cooperative and comfortable HEENT Head: normal to inspection Resp Effort & Inspection: normal respiratory effort GI Inspection: normal to inspection Palpation: soft Other: Incisions well healed Skin General: no rashes or lesions noted Neuro General: patient alert and patient awake Extrem General: normal to inspection and no clubbing, cyanosis or edema Psych Appearance: grossly normal Mood: congruent mood Affect: normal affect Attitude: cooperative Results Lab Results Labs: 10/09/23 05:45: PHA Creatinine Clear 153.15, Sodium 136, Potassium 3.4 L, Chloride 105, Carbon Dioxide 22.6, Anion Gap 11.8, BUN 6 L, Creatinine 0.48 L, Est GFR (CKD-EPI) > 60.0, Glucose 143 H, Calcium 7.9 L 10/09/23 05:45: Corrected WBC 13.6 H, Uncorrected WBC Count 13.6 H, RBC 3.44 L, Hgb 10.3 L, Hct 30.3 L, MCV 88.1, MCH 29.9, MCHC 34.0, RDW 13.2, Plt Count 242, MPV 7.9, Neut % (Auto) 70.1, Lymph % (Auto) 16.5, [place] % (Auto) 9.5, Eos % (Auto) 3.5, Baso % (Auto) 0.4, Nucleat RBC Rel Count 0.1, Neut # (Auto) 9.6 H, Lymph # (Auto) 2.2, [place] # (Auto) 1.3 H, Eos # (Auto) 0.5 H, Baso # (Auto) 0.1 10/08/23 22:27: POC Glucose 194 10/08/23 18:21: POC Glucose 265, POC Glucose Comment Glu2: cleaned meter 10/08/23 13:07: POC Glucose 166, POC Glucose Comment Glu2: cleaned meter 10/08/23 10:31: Lactic Acid 1.9 10/08/23 08:20: Urine Color [place] A, Urine Appearance Turbid A, Urine pH 5.5, Ur Specific [place] > 1.050 H, Urine Protein 30 H, Urine Glucose (UA) 250 H, Urine Ketones Trace H, Urine Occult Blood Negative, Urine Nitrite Negative, Urine Bilirubin 1+ H, Urine Urobilinogen Normal, Ur Leukocyte Esterase Negative, Urine RBC 5-9 H, Urine WBC 3-4, Ur Squamous Epith Cells 5-9 H, Urine Bacteria None seen, Hyaline Casts None seen, Other Casts None seen 10/08/23 07:08: Lactic Acid Cancelled Assessment/Plan Assessment/Plan (1) Abdominal pain: Code(s): R10.9 - Unspecified abdominal pain Plan: Post op post TLH pain Pt with history of IBS CT Scan changes c/w Enteritis Followed by hospitalist (2) Metabolic acidosis: Code(s): E87.20 - Acidosis, unspecified Plan: Resolved (3) S/P hysterectomy: Code(s): Z90.710 - Acquired absence of both cervix and uterus Plan: Postop TLH 09/28 stable (4) T2DM (type 2 diabetes mellitus): Code(s): E11.9 - Type 2 diabetes mellitus without complications Plan: As followed by Hospitalist (5) History of leukocytosis: Code(s): Z86.2 - Personal history of diseases of the blood and blood-forming organs and certain disorders involving the immune mechanism Plan: History of leukocytosis for 2 years followed by Hematology Oncology Documented By: BONG Motley 10/09/23 08 17 Signed By: <Electronically signed by BONG Pavon> 10/09/23 0822 [facility] Work Phone: 1(730) 867-848401-05-2024 Consult note Author Teo crandall [facility] October 08, 2023 4:59pm Note Date/Time October 08, 2023 11 :30am [facility] [address] [place] [address] Psychiatry Consult Note Signed with Piotr Patient: Rachel Mcgarry MR#: [id number] : 1980 Acct:[id number] Age/Sex: 43 / F Adm Date: 4 Loc: Room: [address] [place] [address] Type : ADM IN Attending Dr: Rosanna Grullon MD Copies to: TeoMD Rosanna Livingston MD Laura E Spasic, MEREDITH-C~ ADDENDUM1 No need for 15 min face check as patient contracts for safety. Addendum Documented By: Teo Taylor MD 10/08/231658 Addendum Signed By: <Electronically signed by Teo Taylor MD> 10/08/231658 HPI Consult Date: 10/08/23 Requesting Physician: Beltran Pavon MD-[facility] Primary Care Provider: OLEG Sharp Consult Narrative HPI: Ms. Mcgarry is a 43 year old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 10/07/24 05:59 Last Admin: 10/08/23 06:27 Dose: 1 units Ondansetron HCl (Ondansetron 4 Mg/2 Ml Vial) 4 mg IV-PUSH Q8H PRN PRN Reason: Nausea And Vomiting Stop: 10/06/24 22:53 Ondansetron HCl (Ondansetron Odt 4 Mg Tab.Rapdis) 4 mg PO Q8HR PRN PRN Reason: Nausea And Vomiting Stop: 10/06/24 22:53 [employer] - Exam Physical Exam Vital signs: Temp 98.7 F 10/08/23 03:37 Pulse 88 10/08/23 03:37 Resp 20 10/08/23 03:37 BP 120/83 10/08/23 03:37 Pulse Ox 95 10/08/23 03:37 O2 Del Method Room Air 10/08/23 03:37 Constitutional Constitutional: no acute distress, cooperative and somnolent Routine HEENT Exam Head: Present normocephalic Routine Neck Exam Neck: Present supple Routine Respiratory Exam Comments: good effort Routine Abdominal Exam Abdominal: Present soft, distended and surgical scars Routine Extremities Exam Extremities: Absent edema Routine Skin Exam Skin: Present intact and mottling Routine Neurological Exam Neurological: Present alert and oriented X3 Routine Psychiatric Exam Psychiatric: Present normal affect, suicidal ideation and depressed [employer] - Results Laboratory Results - Last 48 hrs. 10/08/23 06:19: POC Glucose 168 10/08/23 00:15: Lactic Acid 2.6 H* 10/08/23 00:15: PHA Creatinine Clear 131.27, Sodium 133 L, Potassium 4.3, Chloride 102, Carbon Dioxide 21.0, Anion Gap 14.3, BUN 9, Creatinine 0.56 L, EstGFR (CKD- EPI) > 60.0, Glucose 208 H, Calcium 7.9 L, Total Bilirubin 0.5, AST 74 H, ALT 34, Alkaline Phosphatase 62, Total Protein 6.1 L, Albumin 3.7, Globulin 2.4, Albumin/Globulin Ratio 1.5 DIRECTOR SALES - A/P (1) Abdominal pain: Plan: Post op post TLH pain Pt with history of IBS CT Scan changes c/w Enteritis (2) Metabolic acidosis: Plan: Follow lactic acid Hospitalist consulted (3) S/P hysterectomy: Plan: Postop TLH 09/28 (4) T2DM (type 2 diabetes mellitus): Plan: As followed by Hospitalist (5) History of leukocytosis: Plan: History of leukocytosis for 2 years followed by Hematology Oncology Documented By: BONG Motley 10/08/23 07 19 Signed By: <Electronically signed by BONG Pavon> 10/08/23 1258 [facility] Work Phone: 1(878) 913-499001-05-2024 Consult note Author Rosanna Grullon [facility] October 08, 2023 7:00am Note Date/Time October 08, 2023 1: 06am [facility] [address] [place] [address] Hospitalist Consult Note Signed Patient: Rachel Mcgarry MR#: [id number] : 1980 Acct:[id number] Age/Sex: 43 / F Adm Date: 4 Loc: Room: [address] [place] [address] Type: ADM IN Attending Dr: Beltran Pavon MD Copies to: MD Ajit Davis, GLUER MACHINE SETUP OPERATOR-C Namrata Munoz, BONG Frederick~ HPI DATE OF CONSULTATION: 10/08/23 REQUESTING PROVIDER: Beltran Pavon Consult Narrative Reason for Consult: elevated lactic acid, T2DM, leukocytosis HPI: Ms. Mcgarry is a 43-year-old female with a PMH of T2DM, seizure disorder, recent hysterectomy that was transferred here to [facility] to obstetrics for abdominal pain. Hospitalist team has been consulted for management of T2DM, elevated lactic acid and leukocytosis. Patient arrived to the [facility] emergency room via EMS for lower abdominal pain. CT of the abdomen and pelvis with contrast was performed which showed a trace of free air in the abdomen which is possibly related to surgical procedure, nonspecific hyperemia and thickening of the small bowel distally can be seen with enteritis,no acute intra-abdominal or pelvic abnormality. While there she was treated with morphine, Zofran, IV fluids and 3.375 Zosyn. Her CBC had a white blood cell count of 20.1. CMP with a sodium of 129, serum bicarb 22.5, anion gap 13.1, BUN 9, creatinine 0.69, glucose 223. Lactic acid 3. Lipase was 39. UA with clear, yellow urine, greater than thousand glucose, trace ketones, trace ofoccult blood, no bacteria seen. Influenza was negative. Patient recently had hysterectomy performed here on September 28. She been seen in the [facility] emergency room for vaginal infection and was given Diflucan on . Patient reports sudden onset of upper abdominal pain that radiated down to her lower abdomen, reports that it is sharp, stabbing pain felt like she was going to explode. States she took herself to the bathroom and she thought maybe it was her IBS acting up, states she had a normal green soft bowel movement. She reports passing gas. She states that the pain was so severe while she was in the bathroom she has had slipped and had to lower herself to the floor. She states that she could not move because the pain was so bad. She reports vomiting x 1, states that she kept dry heaving over and over and over again. She states she had chills today and felt sweaty while she was in so much pain. She denies fever, chest pain, shortness of breath. She called the ambulance to takeher to the emergency room. Review of Systems Review of Systems Review of systems: A 10 point review of systems was obtained, negative unless noted in the HPI or below. 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 Anxiety Arthritis neck, back and left shoulder Autonomic epileptic seizures Bipolar disorder Cervical cancer age 24 Cyst of right ovary DDD (degenerative disc disease) Depression DJD (degenerative joint disease) Epilepsy started in childhood Fibromyalgia History of depression Hypercholesteremia IBS (irritable bowel syndrome) Iron deficiency Irregular heart beat Leukocytosis Migraine Neuropathy Panic attacks Pinched nerve left foot and left hip PTSD (post-traumatic stress disorder) Rotator cuff disorder left shoulder Ruptured lumbar disc L3 Scoliosis Seizures Smoker 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 Type 2 diabetes mellitus without complication, with long-term current use of insulin March 2022 Vertigo Vitamin D deficiency Surgical History (Updated 10/08/23 @ 01:40 by Namrata Munoz APRN) H/O left breast biopsy H/O right knee surgery History of appendectomy History of D&C x2 History of endometrial ablation History of heart surgery as a baby, repaired whole in heart History of hysteroscopy Hx of cholecystectomy Family History Mother Hypothyroid Myocardial infarction Ovarian cancer Uterine cancer Sister Hyperthyroidism Cervical cancer Social History Smoking Status: Current every day smoker (last around 5am this morning) Tobacco Type: cigarettes and e-cigarettes Substance Use Type: None Substance Abuse Comment: Social ETOH Meds Medications and Allergies Allergies amitriptyline Allergy (Verified 06/30/23 12:03) Seizure Latex, Natural Rubber Allergy (Verified 06/30/23 12:03) Hives nonoxynol 9 [From [place] Plus Spermicidal Jelly] Allergy (Verified 09/16/23 07:54) Hives sulfamethoxazole [From Bactrim] Allergy (Verified 06/30/23 12:03) Seizure tramadol [From Ultram] Allergy (Verified 06/30/23 12:03) Seizure trimethoprim [From Bactrim] Allergy (Verified 06/30/23 12:03) Seizure escitalopram [From Lexapro] Adverse Reaction (Verified 06/30/23 12:03) Difficulty Breathing Home Medications gabapentin 600 mg tablet 800 mg PO QID 06/08/17 [History Confirmed 10/07/23] multivitamin 1 tab PO QAM 06/08/17 [History Confirmed 10/07/23] tizanidine 4 mg tablet 8 mg PO Q8H PRN Muscle Spasm 06/08/17 [History Confirmed 10/07/23] divalproex 250 mg tablet,delayed release (Depakote) 500 mg PO BID 03/13/18 [History Confirmed 10/07/23] divalproex 250 mg tablet,delayed release (Depakote) 250 mg PO QNOON 09/21/18 [History Confirmed 10/07/23] acetaminophen 325 mg capsule (Tylenol) 325 mg PO BID 03/04/22 [History Confirmed 10/07/23] diazepam 5 mg tablet (Valium) 5 mg PO BID 03/04/22 [History Confirmed 10/07/23] melatonin 10 mg tablet 10 mg PO QHS 03/04/22 [History Confirmed 09/28/23] sertraline 100 mg tablet (Zoloft) 100 mg PO QHS 03/04/22 [History Confirmed 10/07/23] lorazepam 0.5 mg tablet 0.5 mg PO DAILY PRN Anxiety 05/18/22 [History Confirmed 10/07/23] meclizine 25 mg tablet 25 mg PO DAILY PRN Vertigo 05/18/22 [History Confirmed 10/07/23] metformin 500 mg tablet 500 mg PO BID 05/18/22 [History Confirmed 10/07/23] simvastatin 20 mg tablet 20 mg PO QHS 05/18/22 [History Confirmed 10/07/23] meloxicam 15 mg tablet 15 mg PO QAM 05/27/22 [History Confirmed 10/07/23] doxazosin 2 mg tablet (Cardura) 2 mg PO QHS bladder spasms 11/18/22 [History Confirmed 10/07/23] dulaglutide 1.5 mg/0.5 mL subcutaneous pen injector (Trulicity) 1.5 mg subcut QWEEK 04/14/23 [History Confirmed 10/07/23] ketorolac 10 mg tablet 10 mg PO Q6H PRN Pain 04/14/23 [History Confirmed 09/28/23] cariprazine 1.5 mg capsule (Vraylar) 1.5 mg PO QAM anxiety, seizures 06/30/23 [History Confirmed 10/07/23] dicyclomine 10 mg capsule 10 mg PO BID PRN IBS 06/30/23 [History Confirmed 10/07/23] ergocalciferol (vitamin D2) 1,250 mcg (50,000 unit) capsule 50,000 unit PO QWEEK06/30/23 [History Confirmed 10/07/23] Active Medications: Active Medications Generic Name Dose Route Start Last Admin Trade Name Freq PRN Reason Stop Dose Admin Acetaminophen 1,000 mg 10/07/23 23:00 Acetaminophen 500 Mg Tablet PO 10/06/24 22:59 Q6H SUSANNE Diphenhydramine HCl 50 mg 10/07/23 22:54 Diphenhydramine 50 Mg/Ml Vial IM 10/06/24 22:53 Q6H PRN Itching Diphenhydramine HCl 50 mg 10/07/23 22:54 Diphenhydramine 25 Mg Capsule PO 10/06/24 22:53 Q6H PRN Itching Hydromorphone HCl 0.5 mg 10/07/23 22:54 Hydromorphone 0.5 Mg/0.5 Ml Syringe IV-PUSH Q2H PRN Pain Scale 3 - 6 Hydromorphone HCl 1 mg 10/07/23 22:54 Hydromorphone 1 Mg/Ml Syringe IV-PUSH Q2H PRN Pain Scale 7 - 10 Lactated Ringer's 1,000 mls @ 125 mls/hr 10/07/23 23:00 Lactated Ringers IV 10/06/24 22:59 .Q8H SUSANNE Piperacillin Sod/Tazobactam Sod 3.375 gm in 100 mls @ 200 mls/hr 10/07/23 23:00 Zosyn IV Q6H SUSANNE Ibuprofen 600 mg 10/08/23 02:00 Ibuprofen 600 Mg Tablet PO 10/07/24 01:59 Q6H SUSANNE Ondansetron HCl 4 mg 10/07/23 22:54 Ondansetron 4 Mg/2 Ml Vial IV-PUSH 10/06/24 22:53 Q8H PRN Nausea And Vomiting Ondansetron HCl 4 mg 10/07/23 22:54 Ondansetron Odt 4 Mg Tab.Rapdis PO 10/06/24 22:53 Q8HR PRN Nausea And Vomiting Exam Physical Exam Narrative: CONST- Appears well -developed and well nourished. HEAD - Normocephalic and atraumatic EENT-Sclera nonicteric, conjunctive are non-erythemic, dry oral mucosa, pharynx clear NECK-Supple, no cervical lymphadenopathy CARDIAC-normal rate, regular rhythm, S1 & S2. Murmur PULM-diminished without wheeze or rhonchi, RA, no accessory muscle use or cough noted ABD - Soft. Bowel sounds are normal. Softly distended. tenderness across abdomen EXTREM-no edema BLE calves, nontender SKIN- W/D good turgor MS- MAEX4 spontaneously with equal with equal strength NEURO- A&Ox3 speech clear and tongue midline, equal facial symmetry, no focal motor deficits PSYCH-Mood, affect, and behavior appropriate Results Lab Results Labs: Laboratory Results - last 72 hr 10/08/23 00:15: Lactic Acid 2.6 H* 10/08/23 00:15: PHA Creatinine Clear 131.27, Sodium 133 L, Potassium 4.3, Chloride 102, Carbon Dioxide 21.0, Anion Gap 14.3, BUN 9, Creatinine 0.56 L, EstGFR (CKD- EPI) > 60.0, Glucose 208 H, Calcium 7.9 L, Total Bilirubin 0.5, AST 74 H, ALT 34, Alkaline Phosphatase 62, Total Protein 6.1 L, Albumin 3.7, Globulin 2.4, Albumin/Globulin Ratio 1.5 Assessment & Plan Assessment/Plan (1) Abdominal pain: (2) Metabolic acidosis: (3) S/P hysterectomy: (4) T2DM (type 2 diabetes mellitus): Plan Abdominal pain?CT scan showed nonspecific hyperemia and thickening of the small bowel distally which can be seen with enteritis, no acute process, r/o post surgical complications Metabolic acidosis?initial lactic 3, repeat here 2.6 S/p hysterectomy?performed on 09/28/2023 ? Continue Zosyn ? IV hydration ? CBC, BMP in a.m. ? Primary plan of care per obstetrics T2DM ? Fingersticks q6h while NPO, SSI C, hold metformin until 10/10/[address] [facility]received at the [facility] Documented By: Namrata Munoz APRN 10/08/23 0106 Signed By: <Electronically signed by CHRISTINA Munoz> 10/08/23 0153 <Electronically signed by Rosanna Grullon MD> 10/08/23 0700 [facility] Work Phone: 1(850) 633-687708-02-2023 [facility] Evaluation note* Encounter Date Diagnosis Assessment Notes Treatment Notes Treatment Clinical Notes Mar, Sacroiliitis (ICD-10 - M46.1) In [...] activities and movements while managing her pain. S[facility] Other 01-31-2023 Evaluation note* Encounter Date Diagnosis [...] cervical spine to further evaluate her pain. [facility] Other 01-30-2023 Hospital Discharge instructions Patient Education [...] to keep your urine pale yellow. ?Take uyfq-dom-onhmaod or prescription medicines. ?Eat foods that are high in fiber, such as beans, whole grains, and fresh fruits and vegetables. ?Limit foods that are high in fat and processed sugars, such as fried or sweet foods. General instructions Take snam-bsz-oxmfgva and prescription medicines only as told by [...] the muscles that help control urination. Take mhac-dnh-kcmdjpw and prescription medicines only as told by your health care provider. Contact a health care provider if your symptoms do not improve or get worse. This information is not intended to replace advice given to you by your health care provider. Make sure you discuss any questions you have with your health care provider. Document Released: 07/17/2010 Document Revised: 03/30/2019 Document Reviewed: 03/30/2019 [email or web address] Patient Education 2020 [employer]. Follow Up Care 10/22/2022 11:17:07 With:JORDANA BALDERAS, Joshua Dempsey, URL Address: [address] [place], [place] [id number] Business (1) When: Unknown [facility] [place] [id number] Note [id number]:127[facility] 08-24-2022 NoteCystoscopy with Urethral Dilation ? Voiding [...] if you have a fever over [facility]11[facility]22 Hospital Discharge instructions Patient Education 08/24/2022 15:50:28 [...] degrees Follow Up Care 07/31/2022 12:32:41 With:Joshua PRESTON Address: [address] [place] [address] [facility] (1) When:6 weeks Comments:Call for followup appointment. Monitor the urinary low after the dilation today. Have a great Thanksgiving. [facility]10-28-2022 Hospital Discharge instructions Patient Education 07/31/2022 [...] including vitamins, herbs, eye drops, creams, and kamy-bfc-kwfling medicines. ?Whether you are or may be [...] 07/17/2008 Document Revised: 01/09/2020 Document Reviewed: 07/25/2018 [email or web address] Patient Education 2020 [employer]. Follow Up Care 07/24/2022 16:53:57 With:JORDANA BALDERAS, Joshua Dempsey, URL Address: [facility] [employer] [place] [id number]- When: Unknown Comments:Cysto/ Urodynamics [facility] [place] [id number] Evaluation note* Encounter Date Diagnosis Assessment Notes [...] and GT bursa injection in the future. [facility] Other 04-27-2022 Evaluation note* Encounter Date Diagnosis [...] progress notes from her referring physician at [facility]. I also independently reviewed previous MRI of [...] - M79.7) Continue with medication management through [facility]. I will also refer her to physical [...] negative findings were considered in medical decision-making. [facility] Other 04-13-2022 Evaluation note* Encounter Date Diagnosis Assessment Notes Treatment Notes Treatment Clinical Notes Jan, Neck pain (ICD-10 - M54.2) I really do not see any surgical intervention that would be warranted in either her cervical or lumbar spine. I think continue conservative therapy is warranted. Jan, Low back pain at multiple sites (ICD-10 - M54.50) Jan, Fibromyalgia (ICD-10 - M79.7) [facility] Other consult note Author Jasmin Velázquez [facility] May 27, 2022 11:47am Note Date/Time May 27, 2022 11 :30am [facility] at [address] [address] Hem/Onc Consult Note - OP Signed Patient: Rachel Mcgarry MR#: [id number] : 1980 Acct:[id number] Age/Sex: 42 / F Type: REG RCR Copies to: [facility]~ HPI Date/Time of Service: Date of Service: 05/27/2022 Time of Service: 11:29 Referring Provider/PCP: Referring Provider: PCP: [facility] - History of Present Illness Reason for Consultation: Leukocytosis Chief Complaint: Patient is here for a referral from Ajit Pettit for leukocytosis. [facility] labs. Patient states that she has been [...] the process of being referred to a medicare sales executive. Patient smokes averaging half pack to 1 pack daily for many years. Shedoes not take prednisone or steroid inhalers. She was not on lithium. She had good work-up looking for sources of infection. Her leukocytosis has been present since at least 2017. Her differential consistently showed no abnormalities including [...] cancer. Patient is being referred to a medicare sales executive. We instructed her to call back if there is any concern for further definitive guidance and recommendations - Time with Patient Coordination of Care & Counseling Time: Greater than 50% of time spent with patient was for coordination of care (as documented) and qwgq-ij-tzrp counseling of patient and/or family. Dictated By: Jasmin Velázquez MD DD/ [id number] Signed By: <Electronically signed by Jasmin Velázquez MD> 05/27/22 1147 [facility] Work Phone: Evaluation + Plan note Future Appointments Appointment Date:08/18/2022 08:00:00 AM Scheduled Provider: Location:[facility] Appointment Type:Urology CALL PAT FT Appointment Date:08/24/2022 02:00:00 PM Scheduled Provider: Location:[facility] Appointment Type:Urology FT Appointment Date:08/24/2022 03:00:00 PM Scheduled Provider: Location:[facility] Appointment Type:Urology FT [facility] Evaluation + Plan note Future Appointments Appointment Date:09/29/2022 10:15:00 AM Scheduled Provider:Joshua PRESTON MD Location:[facility] Future Appointments Appointment Date:12/29/2022 10:45:00 AM Scheduled Provider:Joshua PRESTON MD Location:[facility] Appointment Type:URO Office Visit [facility] Evaluation noteNo Assessments Information Available [facility] [employer] Other evaluation note* Diagnosis Onset Date Resolution Status Iron deficiency acute Leucocytosis acute Right ovarian cyst acute [facility] Work Phone: evaluation noteNo assessment information available [facility] Work Phone: evaluation note* Diagnosis Onset Date Resolution Status Abdominal pain acute Enteritis acute History of depression acute History of leukocytosis acut e IBS (irritable bowel syndrome) acute Leucocytosis acute Metabolic acidosis acute S/P hysterectomy acute T2DM (type 2 diabetes mellitus) acute [facility] Work Phone: Hisyjqn general Narrative - Reported* Type Description Date [...] infection, bowel i nfection and flu 2011 [facility] Other History general Narrative - Reported* Type Description Date [...] infection, bowel i nfection and flu 2011 [facility] Other Hospital course Narrative No data available for this section [facility] [place] Hospital Discharge instructions No data available for this section [facility] [place] Hospital Discharge instructions Additional Instructions DISCHARGE INSTRUCTIONS [...] in an emergency, call the office at [[phone]]. TODAY -Take it easy the rest of [...] FOLLOW UP -Please call the office at [phone] to arrange an appointment to see me in 2 weeks [ ][facility] Work Phone: Hospital Discharge instructions Additional Instructions Follow any previous post-op orders.[facility] Work Phone: Progress note No data available for this section [facility] Reason for visit NarrativeReferral Ajit Pettit NP [facility] [employer] Other Summary Purpose Family History No Family [...] Menorrhagia, Pelvic Pain, Fibroids menorrhagia, pelvic pain Chief Complaint menorrhagia, pelvic pain menorrhagia, pelvic pain post op abd pain,leukocytosis Reason for Visit Abdominal pain Enteritis History of depression History of leukocytosis IBS (irritable bowel syndrome) Leucocytosis Metabolic acidosis S/P hysterectomy T2DM (type 2 diabetes mellitus) Chief Complaint menorrhagia, pelvic pain menorrhagia, pelvic pain post op abd pain,leukocytosis bleeding Reason for Visit Abdominal pain Enteritis History of depression History of leukocytosis IBS (irritable bowel syndrome) Leucocytosis Metabolic acidosis S/P hysterectomy T2DM (type 2 diabetes mellitus) Assessments No Assessments Information AvailableNo Assessments Information AvailableNo Assessments Information AvailableNo Assessments Information AvailableNo Assessments Information AvailableNo Assessments Information Available Additional Source Comments INFORMATION SOURCE (unrecogn ized section and content) DATE CREATED AUTHOR 07/25/2019 [facility] DATE CREATED AUTHOR AUTHOR'S ORGANIZ ATION 12/27/2022 [facility] DATE CREATED AUTHOR AUTHOR'S ORGANIZ ATION 02/15/2023 [facility] DATE CREATED AUTHOR AUTHOR'S ORGANIZ ATION 10/18/2023 [facility] REASON FOR VISIT (unrecogniz ed section and [...] content) Team Status: Inactive Member Role Status [facility] Primary Care Provider Active Ajit Pettit , GLUER MACHINE SETUP OPERATOR-C Attending Provider Active Team Status: Active Member Role Status Lorie Velázquez MD Attending Provider Active Services [facility] Primary Care Provider Active Team Status: Inactive Member Role Status [facility] Primary Care Provider Ac raya Alvarado DO Emergency Provider Active Team Status: Inactive Member Role Status [facility] Primary Care Provider Ac raya Pettit , GLUER MACHINE SETUP OPERATOR-C Attending Provider Active Team Status: Inactive Member Role Status [facility] Primary Care Provider Ac raya Bergeron APRN Emergency Provider Active Team Status: Active Member Role Status [facility] Primary Care Provider Ac tive Team Status: Inactive Member Role Status Lorie Pettit GLUER MACHINE SETUP OPERATOR-C Attending Provider Active Services [facility] Primary Care Provider Ac tive Team Status: Inactive Member Role Status [facility] Primary Care Provider Titus Miramontes MD Attending Provider Active Team Status: Inactive Member Role Status Lorie Pettit GLUER MACHINE SETUP OPERATOR-C Attending Provider Active Team Status: Active Member Role Status [facility] . [facility] Active Team Status: Inactive Member Role Status Lorie Miramontes MD Attending Provider Active . [facility] Primary Care Provider Active Team Status: Inactive Member Role Status Lorie Pettit GLUER MACHINE SETUP OPERATOR-C Attending Provider Active NON STAFF Primary Care Provider Active Team Status: Active Member Role Status Lorie Pettit GLUER MACHINE SETUP OPERATOR-C Primary Care Provider Active Team Status: Inactive Member Role Status Lorie Pettit GLUER MACHINE SETUP OPERATOR-C Primary Care Provider, Attending Provider Active Team Status: Inactive Member Role Status Lorie Miramontes MD Attending Provider Active Ajit Pettit GLUER MACHINE SETUP OPERATOR-C Primary Care Provider Active Team Status: Inactive Member Role Status Lorie Pettit GLUER MACHINE SETUP OPERATOR-C Primary Care Provider Active Kyler Miramontes MD Attending Provider Active Team Status: Inactive Member Role Status Dates Ajit Pettit , GLUER MACHINE SETUP OPERATOR-C Primary Care Provider Active Marty Hinds , DO Attending Provider Active Team Status: Inactive Member Role Status Dates Beltran Pavon MD Admit Provider Active Pastora Calderon , JULIANA Other Provider Active Sarina Danielle , JULIANA Other Provider Active Bernie Brar , JULIANA Other Provider Active Karuna Flor , JULIANA Other Provider Active Lakshmi Manzano , JULIANA Other Provider Active Tracy Sun , JULIANA Other Provider Active Silvia Galeas , FOOD MOBILE DRIVER Other Provider Active Evan Jackson , DO Other Provider Active Familia Blair MD Other Provider Active Brandon Dowling , DO Other Provider Active Florin Cruz MD Other Provider Active Vivi Holloway MD Other Provider Active Ilene Lopez , FOOD MOBILE DRIVER Other Provider Active Lilly Alexandre MD Other Provider Active Rangel Tyler MD Other Provider Active Aidan Cardenas MD Other Provider Active Holden De La Cruz MD Other Provider Active Leodan Catalan , DO Other Provider Active Palma Bright MD Other Provider Active Gabriele Vasquez MD Other Provider Active Karina Colvin , GLUER MACHINE SETUP OPERATOR-C Other Provider Active Gaurav Peraza MD Other Provider Active Mike Guzman MD Other Provider Active Antonio Teague MD Other Provider Active Jorge Galdamez MD Other Provider Active Kourtney Longoria , DO Other Provider Active Bola Sullivan , DO Other Provider Active Lazaro Dunne , DO Other Provider Active Elvira Nava , FOOD MOBILE DRIVER Other Provider Active Salazar Cabrera , DO Attending Provider, Other Provider Active Naila Lema MD Other Provider Active Namrata Munoz , FOOD MOBILE DRIVER Other Provider Active Carole Lundy , FOOD MOBILE DRIVER Other Provider Active Rosanna Grullon MD Other Provider Active Girish Tolentino MD Other Provider Active Beryl Holguin FOOD MOBILE DRIVER Other Provider Active Mabel Lackey , DO Other Provider Active Talita Noel , JULIANA Other Provider Active Teo Taylor MD Other Provider Active Ajit Pettit , GLUER MACHINE SETUP OPERATOR-C Primary Care Provider Active Team Status: Inactive Member Role Status Dates Ajit Pettit , GLUER MACHINE SETUP OPERATOR-C Primary Care Provider Active Diego Noble DO Emergency Provider Active Goals (unrecognized section and content) [...] BE BASED ON THE PRIMARY CLINICAL RECORDS. [facility]. provides no warranty or guarantee of the accuracy or completeness of information in this document.
--- NOTE | 2023-10-19 00:34 | ED_ITS ---
HPI - Female Genitourinary General Chief complaint: Urogenital-Female Stated complaint: VAGNIAL SPOTTING/PAIN Time Seen by Provider: 10/19/23 00:24 Source: patient Mode of arrival: walk-in History of Present Illness HPI Narrative: 43-year-old female who is status post vaginal hysterectomy with Dr. Hinds at [facility] in September and then was seen in this ER for post op abdominal pain and transferred back to [facility] due to the pain and a WBC count over 20, and was found to have C Diff. presents for evaluation of lower abdominal pain with vaginal bleeding. She states that she spontaneously had vaginal bleeding on October 16. She went to [facility] ER and a pelvic exam was performed. Days that she was told that she had a vaginal tear on the left side of her vagina which is where the bleeding was coming from. She currently has completed 8 days out of 10 days of vancomycin for her C. difficile colitis. She is not having any fever. Her abdomen is not soft. She is not having any vomiting or diarrhea. She states that the Emergency Room was supposed to call her RV MECHANIC and give her something for pain. They did neither of these things and she signed out against medical advice and came here because we care about our patients . She denies that she has been sexually active or has put anything in her vagina. She states that she has a small amount of vaginal burning at the external labia and she is currently only spotting, not hemorrhaging from her vagina. It was able to get a copy of the patient's emergency department chart. Dr. Velez was contacted and recommended that the patient have a CT scan to further delineate the vaginal bleeding but the patient did not wish to wait for the CT scan and left against medical advice. She had a normal lactic acid at that time and her white count was minimally elevated at 14.3. Related Data Home Medications Medication Instructions Recorded Confirmed cariprazine 1.5 mg capsule 1.5 mg PO DAILY 04/20/23 04/20/23 (Vraylar) diazepam 5 mg tablet 5 mg PO DAILY 04/20/23 04/20/23 divalproex 250 mg tablet,delayed 250 mg PO DAILY 04/20/23 04/20/23 release divalproex 500 mg tablet,extended 500 mg PO DAILY 04/20/23 04/20/23 release 24 hr doxazosin 2 mg tablet 2 mg PO DAILY 04/20/23 04/20/23 dulaglutide 0.75 mg/0.5 mL 0.75 mg subcut DAILY 04/20/23 04/20/23 subcutaneous pen injector (Trulicity) dulaglutide 1.5 mg/0.5 mL 1.5 mg subcut DAILY 04/20/23 04/20/23 subcutaneous pen injector (Trulicity) ergocalciferol (vitamin D2) 1,250 1,250 mcg PO DAILY 04/20/23 04/20/23 mcg (50,000 unit) capsule ferrous sulfate 325 mg (65 mg 325 mg PO DAILY 04/20/23 04/20/23 iron) tablet (FeroSul) gabapentin 800 mg tablet 800 mg PO DAILY 04/20/23 04/20/23 ibuprofen 800 mg tablet 1,000 mg PO BID 04/20/23 04/20/23 metformin 500 mg tablet,extended 500 mg PO DAILY 04/20/23 04/20/23 release 24 hr tizanidine 4 mg capsule 8 mg PO BID PRN muscle spasticity 04/20/23 04/20/23 Allergies Allergy/AdvReac Type Severity Reaction Status Date / Time amitriptyline Allergy dizzy Verified 10/07/23 19:12 latex Allergy hives Verified 10/07/23 19:12 sulfamethoxazole Allergy Hives Verified 10/07/23 19:12 [From Bactrim] tramadol [From Ultram] Allergy seizures Verified 10/07/23 19:12 trimethoprim [From Bactrim] Allergy Hives Verified 10/07/23 19:12 Review of Systems ROS Status of ROS 10 or more systems reviewed and unremark able except as noted in history and below [facility] Social History Smoking status: Current every day smoker Exam Narrative Exam Narrative: Nurses note and vital signs reviewed and patient is not hypoxic. Blood pressure elevated at 165/97 General: The patient appears well and in no apparent distress. Patient is resting comfortably on cart. Skin: Warm, dry, no pallor noted. There is no rash noted. Head: Normocephalic, atraumatic Eye: Normal conjunctiva, no drainage, EOMI. PERRL Ears, Nose, Mouth, and Throat: oral mucosa is moist. Cardiovascular: Regular Rate and Rhythm S1S2, no murmurs, rubs or gallops Respiratory: Patient is in no distress, no accessory muscle use, lungs are clear to auscultation, no wheezing, rales or rhonchi Back: non-tender, no CVA tenderness bilaterally to percussion. GI: Normal bowel sounds, softly distended, no rebound, guarding or rigidity ; performed with Urszula RN as desktop technician, normal external labia, speculum exam reveals a healing vaginal cuff with a small area that appears to be where a suture may be been, a tiny opening at the left lateral aspect of the vaginal cuff, no active bleeding appreciated, small amount of thick yellow and pink-tinged discharge noted at the posterior vaginal area/vaginal cuff, no foul odor noted, no hemorrhage noted Musculoskeletal: The patient has no evidence of calf tenderness, no pitting edema, symmetrical pulses noted bilaterally Neurological: A&O x4, normal speech Psychiatric: Cooperative Constitutional Vital Signs, click to edit/add: Last Vital Signs Temp 98.4 F 10/19/23 00:25 Pulse 78 10/19/23 00:25 Resp 16 10/19/23 00:25 BP 165/97 H 10/19/23 00:25 Pulse Ox 98 10/19/23 00:25 O2 Del Method Room Air 10/19/23 00:25 Course Vital Signs Vital signs: Vital Signs Temperature 98.4 F 10/19/23 00:25 Pulse Rate 78 10/19/23 00:25 Respiratory Rate 16 10/19/23 00:25 Blood Pressure 165/97 H 10/19/23 00:25 Pulse Oximetry 98 10/19/23 00:25 Oxygen Delivery Method Room Air 10/19/23 00:25 Temperature 98.4 F 10/19/23 00:25 Pulse Rate 78 10/19/23 00:25 Respiratory Rate 16 10/19/23 00:25 Blood Pressure 165/97 H 10/19/23 00:25 Pulse Oximetry 98 10/19/23 00:25 Oxygen Delivery Method Room Air 10/19/23 00:25 MDM - Female Genitourinary MDM Narrative Medical decision making narrative: Is 43-year-old female who is status post vaginal hysterectomy on 09/28/23 who subsequently was readmitted to [facility] and found to have C Diff colitis and is completing treatment for C diff on vancomycin. Presents for evaluation of vaginal bleeding. She was recently seen at [facility] ED on 10/16/23 for vaginal bleeding and a pelvic exam showed some bleeding from her vagina. She left against medical advice after was recommended that she have a CT scan done by the RV MECHANIC on-call. The patient states that she has been having light vaginal spotting and pain. She is not currently receiving any pain medication. She has not had a fever. Her physical exam was benign. She does have a small amount of yellow drainage in her vaginal vault and the vaginal cuff appears to be healing well. There is a small area on the left side of the cough where it appears that a suture may have come loose or broken down. There was no active bleeding in her vaginal vault or from her surgical site. Cultures were taken. An IV was placed and she was medicated with IV fluids and routine labs are ordered. Her white count is elevated at 15.7. She does tend to have an elevated white count when looking back at her trending labs. Her glucose is also elevated at 549 today. She states that she had RBC for dinner prior to coming to the emergency department as well as pop in a cookie. Her lactic acid was elevated. This is likely more related to her elevated glucose that diffuse infection. She was given 10 units of subcutaneous insulin for the elevated glucose. She was medicated with a [place] and has remained comfortable while in the emergency department. I tried to reach Dr Grigsby or Agustin, but they are not consumer safety inspector or available at this time. Repeat labs were ordered but she does not want to wait for the repeat labs due to the weather. I explained to her that she will not heal well with elevated glucose numbers in the 500s. She assures me that her glucose numbers are usually not this high. She agrees to follow-up later today with Dr. Sridhar jones and/or Agustin for further evaluation and treatment. At this time do not think additional antibiotics are indicated despite her elevated white count. She is not having a fever. She is eating and drinking normally. She is smiling and giggling in emergency department and does not appear to be toxic, septic or otherwise in need of admission. OAR[place] was reviewed and she has not had any Rx for narcotics since she had post op meds prescribed after her surgery. Medical Records Medical records narrative: The [address] [address] [address] Scan Report Signed Patient: RACHEL MCGARRY MR#: [id number] : 1980 Acct:[id number] Age/Sex: 43 / F ADM Date: 10/19/23 Loc: ER Attending Dr: Ordering Physician: Anisa Chong Date of Service: 10/19/23 Procedure(s): CT abdomen pelvis w con Accession Number(s): [id number] cc: Physician,Non-Staff M.DPanchito~ The [place] [address] Patient Name: RACHEL MCGARRY MRN: [id number] date: 1980 Sex: F Assigned Patient Location: ER Current Patient Location: ER Accession/Order Number: [id number] Exam Date: 10/19/2023 02:42 Report Date: 10/19/2023 03:27 At the request of: ANISA CHONG Procedure: CT abdomen pelvis w con EXAM: CT abdomen pelvis w con HISTORY: post op hysterectomy with vaginal bleeding COMPARISON: CT abdomen pelvis examination dated 10/07/2023. TECHNIQUE: Axial CT images through the abdomen and pelvis were obtained after the intravenous administration of 100 mL Omnipaque 300 contrast. Coronal and sagittal reformats were obtained. Dose reduction techniques were achieved by using automated exposure control and/or adjustment of mA and/or kV according to patient size and/or use of iterative reconstruction technique. FINDINGS: There is mild bibasilar atelectasis. Abdomen: The liver and spleen enhance homogeneously without focal lesion. There is no intra or extrahepatic biliary duct dilatation. The gallbladder is surgically absent. There is hepatic steatosis. Splenic calcifications are suggestive of prior granulomatous disease. The pancreas, adrenal glands, kidneys, and bowel loops are unremarkable. There is no mesenteric or retroperitoneal lymphadenopathy. The patient is status post an appendectomy. Pelvis: The bladder and rectum are unremarkable. There is no iliac or inguinal lymphadenopathy. The patient is status post a hysterectomy. The ovaries appear within normal limits by CT. There is trace free fluid in the pelvis. There is mild atherosclerotic disease. Bone windows show no aggressive osseous lesions. CT/CT abdomen pelvis w con IMPRESSION: 1. No CT finding to explain the patient's vaginal bleeding. 2. Status post cholecystectomy, appendectomy, and hysterectomy. 3. Hepatic steatosis. 4. Trace free fluid in the pelvis. Electronically authenticated by: Celestina SHEFFIELD Date: 10/19/2023 03:27 Lab Data Labs: Lab Results 10/19/23 10/19/23 10/19/23 Range/Units 00:59 01:06 02:25 WBC 15.7 H (4.0-11.0) 10^3/uL RBC 4.16 L (4.20-5.40) 10^6/uL Hgb 12.3 (12.0-16.0) g/dL Hct 38.4 (36.0-48.0) % MCV 92.3 (81.0-99.0) fL MCH 29.6 (26.7-34.0) pg MCHC 32.0 (29.9-35.2) g/dL RDW 12.9 (11.0-15.0) % Plt Count 449 (150-450) 10^3/uL MPV 9.0 L (9.5-13.5) fL Neut % (Auto) 64.3 (43.0-75.0) % Lymph % (Auto) 26.6 (20.5-60.0) % [place] % (Auto) 6.1 (1.7-12.0) % Eos % (Auto) 1.0 (0.9-7.0) % Baso % (Auto) 0.8 (0.2-2.0) % Neut # (Auto) 10.1 H (1.4-6.5) 10^3/uL Lymph # (Auto) 4.2 H (1.2-3.8) 10^3/uL [place] # (Auto) 1.0 H (0.3-0.8) 10^3/uL Eos # (Auto) 0.2 (0.0-0.7) 10^3/uL Baso # (Auto) 0.1 (0.0-0.1) 10^3/uL Abs Immat Gran (auto) 0.19 H (0.00-0.03) 10^3/uL Imm/Tot Granulo (auto) 1.2 H (0.0-0.5) % Sodium 131 L (136-145) mmol/L Potassium 4.4 (3.5-5.1) mmol/L Chloride 97 L (98-107) mmol/L Carbon Dioxide 23.3 (21.0-32.0) mmol/L Anion Gap 15.1 BUN 9.0 (7.0-18.0) mg/dL Creatinine 0.91 (0.55-1.02) mg/dL Est GFR ( Amer) >60 (>=60) Est GFR (Non-Af Amer) >60 (>=60) BUN/Creatinine Ratio 9.9 Glucose 549 H* (74-106) mg/dL Lactate 3.9 H* (0.4-2.0) mmol/L Calcium 8.6 (8.5-10.1) mg/dL Total Bilirubin 0.2 (0.2-1.0) mg/dL AST 17 (15-37) U/L ALT 22 (14-59) U/L Alkaline Phosphatase 87 (46-116) U/L Total Protein 6.9 (6.4-8.2) g/dL Albumin 3.2 L (3.4-5.0) g/dL Globulin 3.7 g/dL Albumin/Globulin Ratio 0.9 Urine Color Lt. yellow (YELLOW) Urine Clarity Clear (CLEAR) Urine pH 6.0 (5.0-9.0) Ur Specific Reading <=1.005 A (1.005-1.025) Urine Protein Negative (NEG/TRACE) mg/dL Urine Glucose (UA) >=1000 A (NEGATIVE) mg/dL Urine Ketones Negative (NEGATIVE) mg/dL Urine Occult Blood Moderate A (NEGATIVE) Urine Nitrite Negative (NEGATIVE) Urine Bilirubin Negative (NEGATIVE) Urine Urobilinogen 0.2 (0.2-1.0) EU/dL Ur Leukocyte Esterase Trace A (NEGATIVE) Urine RBC 2-5 A (0-2) #/HPF Urine WBC 2-5 A (NONE SEEN) #/HPF Ur Squamous Epith Cells Rare (NONE/RARE) #/LPF Urine Crystals None seen (None Seen) #/HPF Urine Bacteria None seen (NONE SEEN) #/HPF Urine Casts None seen (NONE SEEN) #/LPF Urine Mucus None seen (NONE SEEN) Discharge Plan Discharge Chief Complaint: Urogenital-Female Clinical Impression: Hyperglycemia, Postoperative abdominal pain Patient Disposition: Home, Self-Care Time of Disposition Decision: 04:24 Condition: Good Prescriptions / Home Meds: No Action Vraylar 1.5 mg capsule 1.5 mg PO DAILY diazepam 5 mg tablet 5 mg PO DAILY divalproex 250 mg tablet,delayed release (DR/EC) 250 mg PO DAILY divalproex 500 mg tablet extended release 24 hr 500 mg PO DAILY doxazosin 2 mg tablet 2 mg PO DAILY Trulicity 0.75 mg/0.5 mL pen injector 0.75 mg SUBCUT DAILY Trulicity 1.5 mg/0.5 mL pen injector 1.5 mg SUBCUT DAILY ergocalciferol (vitamin D2) 1,250 mcg (50,000 unit) capsule 1,250 mcg PO DAILY ferrous sulfate [FeroSul] 325 mg (65 mg iron) tablet 325 mg PO DAILY gabapentin 800 mg tablet 800 mg PO DAILY ibuprofen 800 mg tablet 1,000 mg PO BID tizanidine 4 mg capsule 8 mg PO BID PRN (Reason: muscle spasticity) metformin 500 mg tablet extended release 24 hr 500 mg PO DAILY Instructions: Opioid Safety (ED), Diabetic Hyperglycemia (ED), Pain Management After Surgery (DC) Stand Alone Forms: Portal Instructions Referrals: Physician,Non-Staff, MD [Primary Care Provider] - 1 week
--- NOTE | 2023-10-19 00:48 | PC.NURSE ---
patient states that she was at the [facility] ER on 10/16/23 with c/o vaginal bleeding and pain post hysterectomy at that facility on 09/28/[address] Hinds. She had recently been hospitalized there with a C-Diff infection and was discharged home on antibiotics, but started with spontaneous vaginal bleeding and pain while at home, so presented back to the ER on 10/16. The ER physician performed a pelvic exam and told her that there was a tear on the left side of her vaginal wall with a clot on it that was the cause of her vaginal bleeding. The patient's tells me that the ER physician was going to call the television cabinet finisher JUMPBASTING ARMHOLE BASTER about this situation, but after 4 hours no one was ever called, and nothing was done about the patient's pain. The patient states that they were tired of waiting and tired of being ignored, so they decided to leave the [facility]'s ER and go home. I asked the patient if she tried to call Dr Hinds's office during the day today to get an appointment with him before coming into the ER tonight, she states that she did not because she was only able to sleep during the day today and woke up in terrible pain after his office was closed.
[2023-10-19] MEDS: HYDROCODONE/ACET 5-325 MG TABLET 1 TAB PO (01:11)
[2023-10-19 01:14] LABS: Basophils Absolute Auto 0.1 10^3/uL (0.0-0.1); Basophils Percent Auto 0.8 % (0.2-2.0); Eosinophils Absolute Auto 0.2 10^3/uL (0.0-0.7); Hematocrit 38.4 % (36.0-48.0); Hemoglobin 12.3 g/dL (12.0-16.0); Immature Granulocytes Abs Auto 0.19 10^3/uL (0.00-0.03); Immature Granulocytes Pct Auto 1.2 % (0.0-0.5); Lymphocytes Absolute Auto 4.2 10^3/uL (1.2-3.8); Lymphocytes Percent Auto 26.6 % (20.5-60.0); Mean Corpuscular Hemoglobin 29.6 pg (26.7-34.0); Mean Corpuscular Volume 92.3 fL (81.0-99.0); Monocytes Percent Auto 6.1 % (1.7-12.0); Neutrophils Absolute Auto 10.1 10^3/uL (1.4-6.5); Neutrophils Percent Auto 64.3 % (43.0-75.0); Platelet Count 449 10^3/uL (150-450); Red Blood Count 4.16 10^6/uL (4.20-5.40); Red Cell Distribution Width 12.9 % (11.0-15.0); White Blood Count 15.7 10^3/uL (4.0-11.0)
--- NOTE | 2023-10-19 01:15 | CT_ITS ---
The [address] [address] Patient Name: RACHEL MCGARRY MRN: [id number] date: 1980 Sex: F Assigned Patient Location: ER Current Patient Location: ER Accession/Order Number: [id number] Exam Date: 10/19/2023 02:42 Report Date: 10/19/2023 03:27 At the request of: DERICK MARKER Procedure: CT abdomen pelvis w con EXAM: CT abdomen pelvis w con HISTORY: post op hysterectomy with vaginal bleeding COMPARISON: CT abdomen pelvis examination dated 10/07/2023. TECHNIQUE: Axial CT images through the abdomen and pelvis were obtained after the intravenous administration of 100 mL Omnipaque 300 contrast. Coronal and sagittal reformats were obtained. Dose reduction techniques were achieved by using automated exposure control and/or adjustment of mA and/or kV according to patient size and/or use of iterative reconstruction technique. FINDINGS: There is mild bibasilar atelectasis. Abdomen: The liver and spleen enhance homogeneously without focal lesion. There is no intra or extrahepatic biliary duct dilatation. The gallbladder is surgically absent. There is hepatic steatosis. Splenic calcifications are suggestive of prior granulomatous disease. The pancreas, adrenal glands, kidneys, and bowel loops are unremarkable. There is no mesenteric or retroperitoneal lymphadenopathy. The patient is status post an appendectomy. Pelvis: The bladder and rectum are unremarkable. There is no iliac or inguinal lymphadenopathy. The patient is status post a hysterectomy. The ovaries appear within normal limits by CT. There is trace free fluid in the pelvis. There is mild atherosclerotic disease. Bone windows show no aggressive osseous lesions. CT/CT abdomen pelvis w con IMPRESSION: 1. No CT finding to explain the patient's vaginal bleeding. 2. Status post cholecystectomy, appendectomy, and hysterectomy. 3. Hepatic steatosis. 4. Trace free fluid in the pelvis. Electronically authenticated by: Celestina SHEFFIELD Date: 10/19/2023 03:27
[2023-10-19 01:28] LABS: Alanine Aminotransferase 22 U/L (14-59); Albumin Globulin Ratio 0.9; Albumin Level 3.2 g/dL (3.4-5.0); Alkaline Phosphatase 87 U/L (46-116); Anion Gap 15.1; Aspartate Amino Transferase 17 U/L (15-37); BUN Creatinine Ratio 9.9; Bilirubin Total 0.2 mg/dL (0.2-1.0); Calcium 8.6 mg/dL (8.5-10.1); Carbon Dioxide 23.3 mmol/L (21.0-32.0); Chloride 97 mmol/L (98-107); Estimated GFR (African America >60 (>=60); Estimated GFR (Non-African Ame >60 (>=60); Globulin 3.7 g/dL; Potassium 4.4 mmol/L (3.5-5.1); Sodium 131 mmol/L (136-145); Total Protein 6.9 g/dL (6.4-8.2)
[2023-10-19 01:31] LABS: Glucose 549 mg/dL (74-106)
[2023-10-19 01:55] LABS: Bilirubin Urine NEGATIVE (NEGATIVE); Blood Urine MODERATE (NEGATIVE); Clarity Urine CLEAR (CLEAR); Color Urine LT. YELLOW (YELLOW); Glucose Urine UA >=1000 mg/dL (NEGATIVE); Ketones Urine NEGATIVE (NEGATIVE); Leukocyte Esterase Urine TRACE (NEGATIVE); Nitrite Urine NEGATIVE (NEGATIVE); Protein Urine NEGATIVE (NEG/TRACE); Specific Gravity Urine <=1.005 (1.005-1.025); Urobilinogen Urine 0.2 EU/dL (0.2-1.0)
[2023-10-19 01:59] LABS: Bacteria Urine NONE SEEN #/HPF (NONE SEEN); Mucus Urine NONE SEEN (NONE SEEN); Squamous Epithelial Cell Urine RARE #/LPF (NONE/RARE)
[2023-10-19 02:00] LABS: Cast Seen? NONE SEEN #/LPF (NONE SEEN); Crystals Seen? None Seen #/HPF (None Seen)
[2023-10-19] MEDS: INSULIN REGULAR 300 UNITS/3 ML 10 UNIT SUBQ (02:08)
[2023-10-19] MEDS: 0.9 % SODIUM CHLORIDE 1,000 ML 1000 ML IV (02:21)
--- NOTE | 2023-10-19 02:31 | PC.NURSE ---
Delay in getting patient to CT due to difficulty in gaining IV access. Multiple attempts were made by multiple nurses as well as the physician before access was gained. Fluids now started and radiology has been called to let them know that the patient is ready for CT. The patient did tolerate the multiple attempts well and was agreeable to all attempts.
[2023-10-19 02:54] LABS: Lactate/Lactic Acid 3.9 mmol/L (0.4-2.0)
== END 2023-10-19 05:03 | disposition home or self-care (01) ==
PROVIDERS: Emergency Provider Emergency Medicine
DX: G89.18 Other acute postprocedural pain (principal); R73.9 Hyperglycemia, unspecified; Z79.84 Long term (current) use of oral hypoglycemic drugs; A04.72 Enterocolitis due to Clostridium difficile, not specified as recurrent; F17.200 Nicotine dependence, unspecified, uncomplicated; Z79.85 Long-term (current) use of injectable non-insulin antidiabetic drugs; Z90.710 Acquired absence of both cervix and uterus
CPT/HCPCS: 36415; 74177; 80048; 80053; 81001; 83605; 85025; 87070; 99285; Q9967

== ENCOUNTER 2023-11-12 02:15 | Emergency (ER) | payer OTHER, SELFPAY ==
[2023-11-12 02:21] VITALS: BP 128/80; PULSE 96; RESP 18; TEMP 36.5; O2SAT 98; BMI 27.3
--- OUTSIDE RECORDS SUMMARY | 2023-11-12 02:40 | XMS_ITS | CCD ---
Author Name Unknown Address [address] [facility] [address] [place] [address] Organization [facility] Care Team Providers Care Nipping Machine Operator Name Role Phone Ajit Pettit Primary Care Provider Ajit Pettit Attending Provider [phone] [facility] Primary Care Provider [phone] [facility] Primary Care Provider Ajit Pettit Attending Provider [phone] Kyler Miramontes Unavailable Girish Callaway Unavailable [facility] Primary Care Prov ider CHRISTINA Bergeron Emergency Provider OLEG Pettit Attending Provider [phone] DO Rod Alvarado Emergency Provider MD Jasmin Velázquez Attending Provider [facility] Primary Care Provider MD Jasmin Velázquez Attending Provider [facility] Primary Care Provider [phone] AJIT PETTIT Primary Care Physician [phone] [facility] Primary Care Prov ider MD Kyler Miramontes S Attending Provider SINDY PettitC Ajit Shelton Attending Provider Joshua PRESTON Attending Unavailable Joshua PRESTON Attending Unavailable Joshua PRESTON Attending Unavailable NONE, XXXX Referring Unavailable COOK, Joshua P Admitting Unavailable COOK, Joshua P Referring Unavailable COOK, Joshua P Attending Unavailable PAVON, PENOLA Referring Unavailable COOK, Joshua P Attending Unavailable [facility] Primary Care Prov ider MD Kyler Miramontes Attending Provider Spasic, TIRE CURER-C Ajit E Attending Provider MARKER ., DR [...] Unavailiker e MD Kyler Miramontes Attending Provider [facility], . Primary Care Provider Spasic, TIRE CURER-C Ajit E Primary Care Provider [phone] Spasic, TIRE CURER-C Ajit E Attending Provider [facility] Primary Care Prov ider ViscDO Carri fritz Attending Provider [phone] Spasic, TIRE CURER-C Ajit E Primary Care Provider ViscDO Carri fritz Attending Provider Spasic, TIRE CURER-C Ajit E Primary Care Provider DO Carri Manuel Attending Provider MD Beltran Pavon P Admit Provider [phone] JULIANA Calderon Other Provider Unavailable JULIANA Danielle Other Provider Unavailable JULIANA Brar Other Provider Unavailable JULIANA Flor Other Provider Unavailable JULIANA Manzano Other Provider Unavailable JULIANA Sun Other Provider Unavailable Dials, GRAB SETTER Silvia M Other Provider DO Evan Jackson Other Provider [phone] MD Familia Blair Other Provider DO Brandon Dowling Other Provider MD Florin Cruz Other Provider [phone] MD Vivi Holloway Other Provider CHRISTINA [...] Other Provider DO Lazaro Dunne Other Provider CHRISTINA Nava Other Provider DO Salazar Cabrera Attending Provider DO Salazar Cabrera Other Provider [phone] MD Naila Lema Other Provider CHRISTINA Munoz Other Provider CHRISTINA Lundy Other Provider MD Rosanna Grullon Other Provider MD Girish Tolentino Other Provider CHRISTINA Holguin Other Provider DO Mabel Lackey Other Provider JULIANA Noel Other Provider Unavailable MD Teo Taylor Other Provider DO Diego Noble Emergency Provider [phone] CARRI MANUEL Attending Unavailable Spasic, Ajit E Admitting Unavailable Spasic, Ajit E Attending Unavailable [facility] Primary Care U navailable Spasic, Ajit E Primary Care Unavailable Fe, Kyler S Attending Unavailable Fe, Kyler S Admitting Unavailable Spasic, Ajit E Admitting Unavailable Spasic, Ajit E Attending Unavailable NON STAFF Primary Care Unavailable Diego Noble Admitting Unavailable Spasic, Ajit E Primary Care Unavailable Diego Noble Attending Unavailable [facility] Primary Care U navailable Spasic, Ajit E Attending Unavailable Spasic, Ajit E Admitting Unavailable [facility] Primary Care U navailable Fe, Kyler S Attending Unavailable Fe, Kyler S Admitting Unavailable Spasic, Ajit E Primary Care Unavailable Fe, Kyler S Attending Unavailable Fe, Kyler S Admitting Unavailable [facility], . Primary Care Unavaila ble Fe, Kyler S Attending Unavailable Fe, Kyler S Admitting Unavailable [facility] Primary Care U navailable Fe, Kyler S Attending Unavailable Fe, Kyler S Admitting Unavailable Salazar Cabrera Attending Unavailable Beltran Pavon Admitting Unavailable Spasic, Ajit E Primary Care Unavailable Pastora Calderon Consulting Unavailable Sarina Danielle Consulting Unavailable Bernie Brar Consulting Unavailable Karuna Flor Consulting Unavailable Lakshmi Manzano Consulting Unavailable Tracy Sun Consulting Unavailable Silvia Galeas Consulting Unavailable Evan Jackson Consulting Unavailable Familia Blair Consulting Unavailable Brandon Dowling Consulting UnavailFlorin Royal Consulting Unavailable Vivi Holloway Consulting Unavailable Ilene Lopez Consulting Unavailabl Tory Guiterrezwan Consulting Unavailable Rangel Tyler Consulting Unavailable Aidan Cardenas Consulting Unavailable Holden De La Cruz Consulting Unavailable Leodan Catalan Consulting Unavailable Palma Bright Consulting Unavailable Gabriele Vasquez Consulting Unavailable Karina Colvin Consulting Unavailable Gaurav Peraza Consulting Unavailab saranya Guzman, Mike Consulting Unavailable Antonio Teague Consulting Unavailable Jorge Galdamez Consulting Unavailable Kourtney Longoria Consulting Unavailable Bola Sullivan Consulting Unavailable MiniaciLazaro Consulting Unavailable Obika, Elvira Consulting Unavailable Salazar Cabrera Consulting Unavailable Daromar, Obaykylahh M Consulting Unavailable Namrata Munoz Consulting Unavailable Carole Lundy Consulting Unavailable Alahmad, Alaa Consulting Unavailable Girish Tolentino Consulting Unavailable Beryl Holguin Consulting Unavailable Mabel Lackey Consulting Unavailable Talita Noel Consulting Unavailable Teo Taylor Consulting Unavailab saranya Spasiderek Ajit E Primary Care Unavailable Visci, Carri Admitting Unavailable Visci, Carri Attending Unavailable Spasic, Ajit E Primary Care Unavailable Visci, Carri Attending Unavailable Visci, Carri Admitting Unavailable Spasic, Ajit E Primary Care Unavailable Visci, Carri Attending Unavailable Visci, Carri Admitting Unavailable Spasic, Ajit E Primary Care Unavailable Visci, Carri Attending Unavailable Visci, Carri Admitting Unavailable Unavailable Unavailable Unavailable Allergies Allergy Classification Reported Allergen(s) Allergy Type Date of Onset Reaction(s) Facility Opioid Agonists (1 source) traMADol Drug Allergy 09-24-20 [facility] Serotonin Reuptake Inhibitors (SSRIs) (1 source) Escitalopram Drug Allergy 09-24-20 Difficulty Breathing [facility] (20 sources) Escitalopram; Translations: [escitalopram] Drug Allergy 09-24-20 Difficulty Breathing [facility] (20 sources) traMADol; Translations: [tramadol] Drug Allergy 09-24-20 Seizure, Unknown, seizures [facility] (20 sources) Amitriptyline; Translations: [Amitriptyline] Drug Allergy 05-27-20 Seizure [facility] (20 sources) natural latex rubber; Translations: [Latex, Natural Rubber] Allergy to substance 05-27-20 Unknown Reaction, [facility] (20 sources) Sulfamethoxazole; Translations: [sulfamethoxazole] Drug Allergy 05-27-20 [facility] (20 sources) Trimethoprim; Translations: [trimethoprim] Drug Allergy 05-27-20 [facility] (6 sources) Latex; Translations: [Latex] Drug allergy Weal (disorder) [facility] (5 sources) Sulfamethoxazole / Trimethoprim; Translations: [sulfamethoxazole-tr imethoprim] Drug Allergy Unknown (qualifier value) [facility] (1 source) traMADol; Translations: [Ultram] Drug Allergy [facility] (1 source) Sulfamethoxazole / Trimethoprim Drug Allergy [facility] (1 source) Ultra Juancarlos Gold Drug allergy (disorder) [facility] (4 sources) nonoxynol 9; Translations: [nonoxynol 9] Allergy to substance 09-16-[address] [facility] Medications Current Medications Medication Drug Class(es) [...] 2023 12:00am take 2 capsules by m out every eight hours Dicyclomine HCl 10 MG [...] Daily, # 30 tab(s), Refills(s) 3, Pharmacy: [facility] [id number], 166, cm, 11/02/22 10:50:00 EST, Height/Length Dosing, [...] sources) Provitamin D2 Compound Start: 06-30-2023 take 43635 [IU] by mouth every week Ergocalciferol (Vitamin D2) Active 96300 UNIT PO every week June 29, 2023 [...] Start: 10-27-2019 take 2 tablets by mo [facility] three times daily LORazepam 0.5 mg Tab mg tab(s), Oral, TID, Refills(s) 0 Start Date: 10/27/19 Status: Ordered take 1 tablet by [facility] every six hours LORazepam 0.5 MG [...] 2017 12:00am take 1 capsule by mo [facility] every eight hours tiZANidine HCl 6 MG [...] Ordered Start: 09-21-2018 take 1 tablet by [facility] once daily Divalproex (Depakote) 250 mg Tablet,Delayed Release (Dr/Ec) Active 250 MG PO every day at noon September 21, 2018 12:00am Start: 03-13-2018 take 2 tablets by [facility] twice daily Divalproex (Depakote) 250 mg Tablet,Delayed Release (Dr/Ec) Active 500 MG PO Twice daily March 12, 2018 11:00pm Start: 03-13-2018 take 2 tablets by [facility] once daily Divalproex (Depakote) 250 mg Tablet,Delayed Release (Dr/Ec) Active 500 MG PO Daily March 13, 2018 12:00am take 1 tablet by [facility] every twelve hours Divalproex Sodium 250 MG [...] nophen Discontinued 1 TAB PO Q6H 12 3 September 28, 2023 October 07, 2023 11:51pm Start: 09-29-2018 End: 05-18-2022 take 1 tablet by mouth every six hours Hydrocodone-Acetaminophen ([place]) 5-325 mg tablet Discontinued 1 TAB PO Q6H 7 2 September 29, 2018 May 18, 2022 10:27am Start: 03-13-2018 End: 04-24-2018 take 1 tablet by mouth every four to six hours Hydrocodone-Acetaminophen ([place]) 5-325 mg tablet Discontinued 1 TAB PO [...] later, # 2 cap(s), Refills(s) 0, Pharmacy: [facility] [id number] Start Date: 07/31/22 Status: Ordered ciprofloxacin 500 [...] / neomycin 3.5 mg/ml / polymyxin b 83460 unt/ml otic suspension (20 sources) Aminoglycoside Antibacterial, Polymyxin-class Antibacterial, Corticosteroid Start: 09-21-2018 End: 10-01-2018 Azmheial-Opdbxcwva-Sx Discontinued 4 DROPS OTIC Q6H 15 September [...] 05-27-2022 Episodic Other aftercare (1 source) Other intermediate (current) drug therapy; Translations: [OTH COIN BOX COLLECTOR 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 THERAPY] Onset: 02-02-2023 Episodic Other aftercare (1 source) skilled nursing (current) use of oral hypoglycemic drugs; Translations: [COIN BOX COLLECTOR USE ORAL HYPOGLYCEMIC DX] Onset: 02-02-2023 Episodic [...] Translations: [Otalgia, unspecified ear] 11-26-2017 Episodic Other female genital disorders (1 source) Abnormal uterine and vaginal bleeding, unspecified; Translations: [Abnormal uterine and vaginal bleeding, unspecified] Onset: 10-16-2023 Chronic Other gastrointestinal disorders (2 sources) Irritable bowel [...] aPTT Coag (PPP) [Time] 28.2 s 25.1-36.5 [facility] Comment on above: A hematocrit value g reater than 55% may lead to inaccurate results in coagulation testing. Patients having hematocrit values >55% require a special collection tube for coagulation studies. Please contact the laboratory at [phone] for redraw instructions. Alanine aminotransferase [En zymatic activity/volume] in Serum or PlasmaOrdered By: Diego Noble on 10-16-2023 ALT [Catalytic activity/Vol] 10 U/L 7-52 [facility] Albumin [Mass/volume] in Ser um or Plasma by Bromocresol green (BCG) dye binding methoOrdered By: Diego Noble on 10-16-2023 Albumin BCG dye [Mass/Vol] 3.7 g/dL 3.5-5.7 [facility] Alkaline phosphatase [Enzyma tic activity/volume] in Serum or PlasmaOrdered By: Diego Noble on 10-16-2023 ALP [Catalytic activity/Vol] 84 U/L 34-104 [facility] Aspartate aminotransferase [ Enzymatic activity/volume] in Serum or PlasmaOrdered By: Diego Noble on 10-16-2023 AST [Catalytic activity/Vol] 14 U/L 13-39 [facility] Basophils Auto (Bld) [#/Vol] Ordered By: Diego Noble on 10-16-2023 Basophils (Bld) [#/Vol] 0.4 10*3/uL 0.0-0.2 [facility] Basophils/100 WBC Auto (Bld) Ordered By: Diego Noble on 10-16-2023 Basophils/100 WBC (Bld) 2.6 % . [facility] Bilirubin.total [Mass/volume ] in Serum or PlasmaOrdered By: Diego Noble on 10-16-2023 Bilirubin [Mass/Vol] 0.2 mg/dL 0.3-1.0 [facility] Blood Cultureon 10-16-2023 Bacteria identified Cx Nom (Bld) NO GROWTH 5 DAYS PERFORMED BY: [facility] [address] [place] [address] PATHOLOGIST [employer] TE[employer]ER RIDGE HUERTA M.D. Normal [facility] Comment on above: Performed By: #### L DOUG SIMENTAL #### [facility] [address] Bacteria identified Cx Nom (Bld) NO GROWTH 5 DAYS PERFORMED BY: [address] [place] [address] PATHOLOGIST [employer] TE[employer]ER RIDGE HUERTA M.D. Normal [facility] Comment on above: Performed By: #### L ELLIS SIMENTALLD #### [facility] [address] Calcium [Mass/volume] in Ser um or PlasmaOrdered By: Diego Noble on 10-16-2023 Calcium [Mass/Vol] 9.1 mg/dL 8.6-10.3 [facility] Carbon dioxide, total [Moles /volume] in Serum or PlasmaOrdered By: Diego Noble on 10-16-2023 CO2 [Moles/Vol] 25.9 mmol/L 21.0-31.0 [facility] Chloride [Moles/volume] in S alissa or PlasmaOrdered By: Diego Noble on 10-16-2023 Chloride [Moles/Vol] 101 mmol/L 98-107 [facility] Complete Blood Count Auto Di ffon 10-16-2023 Basophils (Bld) [#/Vol] 0.4 10*3/uL High 0.0-0.2 [facility] Comment on above: Result Comment: PERF ORMED BY: [place] [address] PATHOLOGIST [employer] TE[employer]ER RIGDE HUERTA M.D. Performed By: #### C BC, PTT, PT, CMP ####[address] [place] [address] [place] Basophils/100 WBC (Bld) 2.6 % Normal . [facility] Comment on above: Performed By: #### C BC, PTT, PT, CMP ####[facility] [address] [place] [id number] [facility] Eosinophils (Bld) [#/Vol] 0.5 10*3/uL High 0.0-0.45 [facility] Comment on above: Performed By: #### C BC, PTT, PT, CMP ####[place] [id number] [facility] Eosinophils/100 WBC (Bld) 3.3 % Normal . [facility] Comment on above: Performed By: #### C BC, PTT, PT, CMP ####[address] Erythrocyte distribution width (RBC) [Ratio] 13.0 % Normal 11.9-15.3 [facility] Comment on above: Performed By: #### C BC, PTT, PT, CMP ####[address] Hematocrit (Bld) [Volume fraction] 34.0 % Normal 34.0-46.4 [facility] Comment on above: Performed By: #### C BC, PTT, PT, CMP ####[address] Hemoglobin (Bld) [Mass/Vol] 11.6 g/dL Low 11.8-15.4 [facility] Comment on above: Performed By: #### C BC, PTT, PT, CMP ####[address] Lymphocytes (Bld) [#/Vol] 4.9 10*3/uL High 1.00-4.8 [facility] Comment on above: Performed By: #### C BC, PTT, PT, CMP ####[place] [id number] [facility] Lymphocytes/100 WBC (Bld) 34.0 % Normal . [facility] Comment on above: Performed By: #### C BC, PTT, PT, CMP ####[address] MCH (RBC) [Entitic mass] 30.3 pg Normal 24.7-34.3 [facility] Comment on above: Performed By: #### C BC, PTT, PT, CMP ####[place] [id number] [facility] MCV (RBC) [Entitic vol] 88.7 fL Normal 80-100 [facility] Comment on above: Performed By: #### C BC, PTT, PT, CMP ####[address] Mean Corpuscular HGB Conc 34.1 g/dL Normal 32.0-35.0 [facility] Comment on above: Performed By: #### C BC, PTT, PT, CMP ####[address] Monocytes (Bld) [#/Vol] 0.9 10*3/uL High 0.0-0.8 [facility] Comment on above: Performed By: #### C BC, PTT, PT, CMP ####[address] Monocytes/100 WBC (Bld) 20.62 % High 0.00-20.00 [facility] Comment on above: Result Comment: For adults in ED, MDW > 20.0 may be associated with a higher risk of sepsis during the first 12 hrs of hospital admission Performed By: #### C BC, PTT, PT, CMP ####[address] Monocytes/100 WBC (Bld) 6.3 % Normal . [facility] Comment on above: Performed By: #### C BC, PTT, PT, CMP ####[address] Neutrophils (Bld) [#/Vol] 7.7 10*3/uL Normal 1.8-7.7 [facility] Comment on above: Performed By: #### C BC, PTT, PT, CMP ####[address] Neutrophils/100 WBC (Bld) 53.8 % Normal . [facility] Comment on above: Performed By: #### C BC, PTT, PT, CMP ####[address] NRBC% 0.1 /100{WBC} Normal 0-0.5 [facility] Comment on above: Performed By: #### C BC, PTT, PT, CMP ####[address] Platelet mean volume (Bld) [Entitic vol] 6.7 fL Normal 6.3-10.7 [facility] Comment on above: Performed By: #### C BC, PTT, PT, CMP ####[address] Platelets (Bld) [#/Vol] 454 10*3/uL High 150-450 [facility] Comment on above: Performed By: #### C BC, PTT, PT, CMP ####[address] RBC (Bld) [#/Vol] 3.84 10*6/uL Normal 3.60-5.00 [facility] Comment on above: Performed By: #### C BC, PTT, PT, CMP ####[address] WBC (Bld) [#/Vol] 14.3 10*3/uL High 3.8-11.6 [facility] Comment on above: Performed By: #### C BC, PTT, PT, CMP ####[address] Comprehensive Metabolic Pane rosa 10-16-2023 Albumin [Mass/Vol] 3.7 g/dL Normal 3.5-5.7 [facility] Comment on above: Performed By: #### C BC, PTT, PT, CMP ####[place] [id number] [facility] Albumin/Globulin [Mass ratio] 1.4 {ratio} Normal [facility] Comment on above: Performed By: #### C BC, PTT, PT, CMP ####[place] [id number] [facility] ALP [Catalytic activity/Vol] 84 U/L Normal 34-104 [facility] Comment on above: Performed By: #### C BC, PTT, PT, CMP ####[address] [place] [address] [facility] ALT [Catalytic activity/Vol] 10 U/L Normal 7-52 [facility] Comment on above: Performed By: #### C BC, PTT, PT, CMP ####[address] [address] [facility] Anion gap [Moles/Vol] 14.4 mmol/L Normal 6.0-15.0 [facility] Comment on above: Performed By: #### C BC, PTT, PT, CMP ####[place] [id number] [facility] AST [Catalytic activity/Vol] 14 U/L Normal 13-39 [facility] Comment on above: Performed By: #### C BC, PTT, PT, CMP ####[place] [id number] [facility] Bilirubin [Mass/Vol] 0.2 mg/dL Low 0.3-1.0 [facility] Comment on above: Performed By: #### C BC, PTT, PT, CMP ####[place] [id number] [facility] Calcium [Mass/Vol] 9.1 mg/dL Normal 8.6-10.3 [facility] Comment on above: Performed By: #### C BC, PTT, PT, CMP ####[place] [id number] [facility] Chloride [Moles/Vol] 101 mmol/L Normal 98-107 [facility] Comment on above: Performed By: #### C BC, PTT, PT, CMP ####[address] [address] [facility] CO2 [Moles/Vol] 25.9 mmol/L Normal 21.0-31.0 [facility] Comment on above: Performed By: #### C BC, PTT, PT, CMP ####[place] [id number] [facility] Creatinine [Mass/Vol] 0.55 mg/dL Low 0.60-1.20 [facility] Comment on above: Performed By: #### C BC, PTT, PT, CMP ####[address] [place] [id number] [facility] Creatinine Clr Calc Pharmacy 134.19 Normal [facility] Comment on above: Result Comment: PERF ORMED BY: [facility] [address] [place] [address] PATHOLOGIST [employer] RIDGE HUERTA M.D. Performed By: #### C BC, PTT, PT, CMP ####[address] [place] [id number] [facility] GFR/1.73 sq M.predicted MDRD (S/P/Bld) [Vol rate/Area] mL/min/{1.73_m2} Normal [facility] Comment on above: Performed By: #### C BC, PTT, PT, CMP ####[address] [place] [id number] [facility] Globulin (S) [Mass/Vol] 2.6 g/dL Normal [facility] Comment on above: Performed By: #### C BC, PTT, PT, CMP ####[address] [place] [id number] [facility] Glucose [Mass/Vol] 197 mg/dL High 70-100 [facility] Comment on above: Result Comment: [place] Glucose Reference Range is dependent on time and content of last meal. Glucose of more than 200 mg/dL in a nonstressed, ambulatory subject supports the diagnosis of Diabetes Mellitus. ADA recommended reference range Performed By: #### C BC, PTT, PT, CMP ####[address] [address] [place] [id number] [facility] Potassium [Moles/Vol] 4.3 mmol/L Normal 3.5-5.1 [facility] Comment on above: Performed By: #### C BC, PTT, PT, CMP ####[address] [place] [id number] [facility] Protein [Mass/Vol] 6.3 g/dL Low 6.4-8.9 [facility] Comment on above: Performed By: #### C BC, PTT, PT, CMP ####[facility] [id number] [place] [address] [facility] Sodium [Moles/Vol] 137 mmol/L Normal 136-145 [facility] Comment on above: Performed By: #### C BC, PTT, PT, CMP ####[facility] [id number] [place] [address] [facility] Urea nitrogen [Mass/Vol] 12 mg/dL Normal 7-25 [facility] Comment on above: Performed By: #### C BC, PTT, PT, CMP ####[facility] [address] [place] [id number] [facility] Creatinine [Mass/volume] in Serum or PlasmaOrdered By: Diego Noble on 10-16-2023 Creatinine [Mass/Vol] 0.55 mg/dL 0.60-1.20 [facility] Eosinophils Auto (Bld) [#/Vo l]Ordered By: Diego Noble on 10-16-2023 Eosinophils (Bld) [#/Vol] 0.5 10*3/uL 0.0-0.45 [facility] Eosinophils/100 WBC Auto (Bl d)Ordered By: Diego Noble on 10-16-2023 Eosinophils/100 WBC (Bld) 3.3 % . [facility] Erythrocyte distribution wid th Auto (RBC) [Ratio]Ordered By: Diego Noble on 10-16-2023 Erythrocyte distribution width (RBC) [Ratio] 13.0 % 11.9-15.3 [facility] Globulin Calc (S) [Mass/Vol] Ordered By: Diego Noble on 10-16-2023 Globulin (S) [Mass/Vol] 2.6 g/dL [facility] Glucose [Mass/volume] in Ser um or PlasmaOrdered By: Diego Noble on 10-16-2023 Glucose [Mass/Vol] 197 mg/dL 70-100 [facility] Comment on above: ADA recommended refe rence rangeRandom Glucose Reference Range is dependent on time and content of last meal. Glucose of more than 200 mg/dL in a nonstressed, ambulatory subject supports the diagnosis of Diabetes Mellitus. Hematocrit Auto (Bld) [Volum e fraction]Ordered By: Diego Noble on 10-16-2023 Hematocrit (Bld) [Volume fraction] 34.0 % 34.0-46.4 [facility] Hemoglobin [Mass/volume] in BloodOrdered By: Diego Noble on 10-16-2023 Hemoglobin (Bld) [Mass/Vol] 11.6 g/dL 11.8-15.4 [facility] INR in Platelet poor plasma by Coagulation assayOrdered By: Diego Noble on 10-16-2023 INR Coag (PPP) [Relative time] 0.9 {INR} [facility] Comment on above: INR Therapeutic Rang [...] on 10-16-2023 Lactate [Moles/Vol] 2.1 mmol/L 0.5-2.2 [facility] Comment on above: Critical Result : Ca lled to and read back by: MACO BECK at: 10/16/2023 12:33:20 by:ECTOR Lactic Acidon 10-16-2023 Lactate [Moles/Vol] 2.1 mmol/L Off scale high 0.5-2.2 [facility] Comment on above: Result Comment: Crit ical Result : Called to and read back by: MACO BECK at: 10/16/2023 12:33:20 by:ECTOR PERFORMED BY: [place] [address] PATHOLOGIST [employer] TE[employer]ER RIGDE HUERTA M.D. Performed By: #### L DOUG SIMENTAL #### [address] Leukocytes [#/volume] correc cehrie for nucleated erythrocytes in Blood by Automated counOrdered By: Diego Noble on 10-16-2023 WBC corrected for nucl RBC Auto (Bld) [#/Vol] 14.3 10*3/uL 3.8-11.6 [facility] Lymphocytes Auto (Bld) [#/Vo l]Ordered By: Diego Noble on 10-16-2023 Lymphocytes (Bld) [#/Vol] 4.9 10*3/uL 1.00-4.8 [facility] Lymphocytes/100 WBC Auto (Bl d)Ordered By: Diego Noble on 10-16-2023 Lymphocytes/100 WBC (Bld) 34.0 % . [facility] MCH Auto (RBC) [Entitic mass ]Ordered By: Diego Noble on 10-16-2023 MCH (RBC) [Entitic mass] 30.3 pg 24.7-34.3 [facility] MCHC Auto (RBC) [Mass/Vol]Or dered By: Diego Noble on 10-16-2023 MCHC (RBC) [Mass/Vol] 34.1 g/dL 32.0-35.0 Fir [facility] MCV Auto (RBC) [Entitic vol] Ordered By: Diego Noble on 10-16-2023 MCV (RBC) [Entitic vol] 88.7 fL 80-100 F [facility] Monocyte distribution width [Entitic volume] in Blood by AutomatedOrdered By: Diego Noble on 10-16-2023 Monocyte distribution width Auto (Bld) [Entitic vol] 20.62 % 0.00-20.00 [facility] Comment on above: For adults in ED, MD W > 20.0 may be associated with a higher risk of sepsis during the first 12 hrs of hospital admission Monocytes Auto (Bld) [#/Vol] Ordered By: Diego Noble on 10-16-2023 Monocytes (Bld) [#/Vol] 0.9 10*3/uL 0.0-0.8 [facility] Monocytes/100 WBC Auto (Bld) Ordered By: Diego Noble on 10-16-2023 Monocytes/100 WBC (Bld) 6.3 % . F [facility] Neutrophils Auto (Bld) [#/Vo l]Ordered By: Diego Noble on 10-16-2023 Neutrophils (Bld) [#/Vol] 7.7 10*3/uL 1.8-7.7 [facility] Neutrophils/100 WBC Auto (Bl d)Ordered By: Diego Noble on 10-16-2023 Neutrophils/100 WBC (Bld) 53.8 % . [facility] No Panel InformationOrdered By: Diego Noble on 10-16-2023 Estimated GFR (CKD-EPI) > 60.0 mL/Min [facility] Creatinine Clearance (Chem 134.19 [facility] Nucleated erythrocytes [Pres ence] in Blood by Automated countOrdered By: Diego Noble on 10-16-2023 Nucleated RBC Auto Ql (Bld) 0.1 /100{WBC} 0-0.5 [facility] Partial Thromboplastin Timeo n 10-16-2023 aPTT Coag (Bld) [Time] 28.2 s Normal 25.1-36.5 [facility] Comment on above: Result Comment: A he matocrit value greater than 55% may lead to inaccurate results in coagulation testing. Patients having hematocrit values >55% require a special collection tube for coagulation studies. Please contact the laboratory at [phone] for redraw instructions. PERFORMED BY: [facility] [address] [place] [address] PATHOLOGIST [employer] RIDGE HUERTA M.D. Performed By: #### C BC, PTT, PT, CMP ####[facility] [id number] Platelet mean volume Auto (B ld) [Entitic vol]Ordered By: Diego Noble on 10-16-2023 Platelet mean volume (Bld) [Entitic vol] 6.7 fL 6.3-10.7 [facility] Platelets Auto (Bld) [#/Vol] Ordered By: Diego Noble on 10-16-2023 Platelets (Bld) [#/Vol] 454 10*3/uL 150-450 [facility] Potassium [Moles/volume] in Serum or PlasmaOrdered By: Diego Noble on 10-16-2023 Potassium [Moles/Vol] 4.3 mmol/L 3.5-5.1 [facility] Protein [Mass/volume] in Ser um or PlasmaOrdered By: Diego Noble on 10-16-2023 Protein [Mass/Vol] 6.3 g/dL 6.4-8.9 [facility] Prothrombin Time INRon 10-16 INR Coag (PPP) [Relative time] 0.9 {INR} Normal [facility] Comment on above: Result Comment: INR [...] By: #### C BC, PTT, PT, CMP ####[facility] [id number] [place] [id number] [facility] PT Coag (PPP) [Time] 9.9 s Normal 9.0-12.9 [facility] Comment on above: Result Comment: A he matocrit value greater than 55% may lead to inaccurate results in coagulation testing. Patients having hematocrit values >55% require a special collection tube for coagulation studies. Please contact the laboratory at [phone] for redraw instructions. Performed By: #### C BC, PTT, PT, CMP ####[facility] [address] [place] [address] [facility] Prothrombin time (PT)Ordered By: Diego Noble on 10-16-2023 PT Coag (PPP) [Time] 9.9 s 9.0-12.9 [facility] Comment on above: A hematocrit value g reater than 55% may lead to inaccurate results in coagulation testing. Patients having hematocrit values >55% require a special collection tube for coagulation studies. Please contact the laboratory at [phone] for redraw instructions. RBC Auto (Bld) [#/Vol]Ordere d By: Diego Noble on 10-16-2023 RBC (Bld) [#/Vol] 3.84 10*6/uL 3.60-5.00 [facility] Serum or plasma albumin/glob ulin mass ratioOrdered By: Diego Noble on 10-16-2023 Albumin/Globulin [Mass ratio] 1.4 {ratio} [facility] Serum or plasma anion gap de terminationOrdered By: Diego Noble on 10-16-2023 Anion gap [Moles/Vol] 14.4 mmol/L 6.0-15.0 [facility] Sodium [Moles/volume] in Ser um or PlasmaOrdered By: Diego Noble on 10-16-2023 Sodium [Moles/Vol] 137 mmol/L 136-145 [facility] Urea nitrogen [Mass/volume] in Serum or PlasmaOrdered By: Diego Noble on 10-16-2023 Urea nitrogen [Mass/Vol] 12 mg/dL 7-25 [facility] WBC Auto (Bld) [#/Vol]Ordere d By: Diego Noble on 10-16-2023 WBC (Bld) [#/Vol] 14.3 10*3/uL 3.8-11.6 [facility] Basic Metabolic Panelon Anion gap [Moles/Vol] 11.8 mmol/L Normal 6.0-15.0 [facility] Comment on above: Performed By: #### C BC, BMP ####[facility] [place] [address] [facility] Calcium [Mass/Vol] 7.9 mg/dL Low 8.6-10.3 [facility] Comment on above: Performed By: #### C BC, BMP ####[facility] [place] [address] [place] Chloride [Moles/Vol] 105 mmol/L Normal 98-107 [facility] Comment on above: Performed By: #### C BC, BMP ####[facility] [place] [address] [facility] CO2 [Moles/Vol] 22.6 mmol/L Normal 21.0-31.0 [facility] Comment on above: Performed By: #### C BC, BMP ####[facility] [place] [address] [facility] Creatinine [Mass/Vol] 0.48 mg/dL Low 0.60-1.20 [facility] Comment on above: Performed By: #### C BC, BMP ####[place] [address] [place] [id number] [facility] Creatinine Clr Calc Pharmacy 153.15 [facility] Comment on above: Result Comment: PERF ORMED BY: [facility] [address] [place] [address] PATHOLOGIST [employer] RIDGE HUERTA M.D. Performed By: #### C BC, BMP ####[place] [address] [place] [id number] [facility] GFR/1.73 sq M.predicted MDRD (S/P/Bld) [Vol rate/Area] mL/min/{1.73_m2} [facility] Comment on above: Performed By: #### C BC, BMP ####[place] [address] [place] [id number] [facility] Glucose [Mass/Vol] 143 mg/dL High 70-100 [facility] Comment on above: Result Comment: [place] Glucose Reference Range is dependent on time and content of last meal. Glucose of more than 200 mg/dL in a nonstressed, ambulatory subject supports the diagnosis of Diabetes Mellitus. ADA recommended reference range Performed By: #### C BC, BMP ####[place] [address] [place] [id number] [facility] Potassium [Moles/Vol] 3.4 mmol/L Low 3.5-5.1 [facility] Comment on above: Performed By: #### C BC, BMP ####[place] [address] [place] [id number] [facility] Sodium [Moles/Vol] 136 mmol/L Normal 136-145 [facility] Comment on above: Performed By: #### C BC, BMP ####[place] [address] [place] [id number] [facility] Urea nitrogen [Mass/Vol] 6 mg/dL Low 7-25 [facility] Comment on above: Performed By: #### C BC, BMP ####[place] [id number] [place] Basophils Auto (Bld) [#/Vol] Ordered By: Ilene Lopez on 10-09-2023 Basophils (Bld) [#/Vol] 0.1 10*3/uL 0.0-0.2 [facility] Basophils/100 WBC Auto (Bld) Ordered By: Ilene Lopez on 10-09-2023 Basophils/100 WBC (Bld) 0.4 % . F [facility] Calcium [Mass/volume] in Ser um or PlasmaOrdered By: Ilene Lopez on 10-09-2023 Calcium [Mass/Vol] 7.9 mg/dL 8.6-10.3 [facility] Carbon dioxide, total [Moles /volume] in Serum or PlasmaOrdered By: Ilene Lopez on 10-09-2023 CO2 [Moles/Vol] 22.6 mmol/L 21.0-31.0 [facility] Chloride [Moles/volume] in S alissa or PlasmaOrdered By: Ilene Lopez on 10-09-2023 Chloride [Moles/Vol] 105 mmol/L 98-107 [facility] Clostridioides difficile tox in B tcdB gene [Presence] in Stool by NAYELY with probe deteOrdered By: BONG Pavon on 10-09-2023 C. difficile toxin B tcdB gene NAYELY+probe Ql (Stl) Positive Negative [facility] Comment on above: Results calledat 161 9 on 10/09/23 Testing performed by RT-PCR Clostridium Difficileon Clostridium Difficile Positive Normal Negative [facility] Comment on above: Order Comment: Date of Surgery: [id number] Result Comment: Resu lts called at 1619 on 10/09/23 Testing performed by RT-PCR PERFORMED BY: [facility] [address] [place] [address] PATHOLOGIST [employer] RIDGE HUERTA M.D. Performed By: #### C DT ####[facility] [place] [address] [facility] Complete Blood Count Auto Di ffon 10-09-2023 Basophils (Bld) [#/Vol] 0.1 10*3/uL Normal 0.0-0.2 [facility] Comment on above: Result Comment: PERF ORMED BY: [facility] [address] [place] [id number] PATHOLOGIST [employer] RIDGE HUERTA M.D. Performed By: #### C BC, BMP ####[place] [address] [place] [id number] [facility] Basophils/100 WBC (Bld) 0.4 % Normal . F [facility] Comment on above: Performed By: #### C BC, BMP ####[place] [address] [place] [id number] [facility] Eosinophils (Bld) [#/Vol] 0.5 10*3/uL High 0.0-0.45 [facility] Comment on above: Performed By: #### C BC, BMP ####[place] [address] [place] [id number] [facility] Eosinophils/100 WBC (Bld) 3.5 % Normal . [facility] Comment on above: Performed By: #### C BC, BMP ####[place] [address] [place] [phone] [facility] Erythrocyte distribution width (RBC) [Ratio] 13.2 % Normal 11.9-15.3 [facility] Comment on above: Performed By: #### C BC, BMP ####[place] [id number] [facility] Hematocrit (Bld) [Volume fraction] 30.3 % Low 34.0-46.4 [facility] Comment on above: Performed By: #### C BC, BMP ####[place] [address] [place] [phone] [facility] Hemoglobin (Bld) [Mass/Vol] 10.3 g/dL Low 11.8-15.4 [facility] Comment on above: Performed By: #### C BC, BMP ####[place] [id number] [facility] Lymphocytes (Bld) [#/Vol] 2.2 10*3/uL Normal 1.00-4.8 [facility] Comment on above: Performed By: #### C BC, BMP ####[place] [address] [place] [id number] [facility] Lymphocytes/100 WBC (Bld) 16.5 % Normal . [facility] Comment on above: Performed By: #### C BC, BMP ####[place] [address] [place] [address] [facility] MCH (RBC) [Entitic mass] 29.9 pg Normal 24.7-34.3 [facility] Comment on above: Performed By: #### C BC, BMP ####[place] [address] [place] [address] [facility] MCV (RBC) [Entitic vol] 88.1 fL Normal 80-100 F [facility] Comment on above: Performed By: #### C BC, BMP ####[place] [address] [place] [address] [facility] Mean Corpuscular HGB Conc 34.0 g/dL Normal 32.0-35.0 [facility] Comment on above: Performed By: #### C BC, BMP ####[place] [address] [place] [address] [facility] Monocytes (Bld) [#/Vol] 1.3 10*3/uL High 0.0-0.8 [facility] Comment on above: Performed By: #### C BC, BMP ####[place] [id number] [facility] Monocytes/100 WBC (Bld) 9.5 % Normal . F [facility] Comment on above: Performed By: #### C BC, BMP ####[place] [address] [place] [address] [facility] Neutrophils (Bld) [#/Vol] 9.6 10*3/uL High 1.8-7.7 [facility] Comment on above: Performed By: #### C BC, BMP ####[place] [address] [place] [address] [facility] Neutrophils/100 WBC (Bld) 70.1 % Normal . [facility] Comment on above: Performed By: #### C ASHLEY, BMP ####[place] [address] [place] [address] [facility] NRBC% 0.1 /100{WBC} Normal 0-0.5 [facility] Comment on above: Performed By: #### C ASHLEY, BMP ####[place] [address] [place] [address] [facility] Platelet mean volume (Bld) [Entitic vol] 7.9 fL Normal 6.3-10.7 [facility] Comment on above: Performed By: #### C ASHLEY, BMP ####[address] [address] [facility] Platelets (Bld) [#/Vol] 242 10*3/uL Normal 150-450 [facility] Comment on above: Performed By: #### C ASHLEY, BMP ####[address] [address] [facility] RBC (Bld) [#/Vol] 3.44 10*6/uL Low 3.60-5.00 [facility] Comment on above: Performed By: #### C ASHLEY, BMP ####[place] [id number] [facility] WBC (Bld) [#/Vol] 13.6 10*3/uL High 3.8-11.6 [facility] Comment on above: Performed By: #### C ASHLEY, BMP ####[place] [id number] [facility] Creatinine [Mass/volume] in Serum or PlasmaOrdered By: Ilene Lopez on 10-09-2023 Creatinine [Mass/Vol] 0.48 mg/dL 0.60-1.20 [facility] Eosinophils Auto (Bld) [#/Vo l]Ordered By: Ilene Lopez on 10-09-2023 Eosinophils (Bld) [#/Vol] 0.5 10*3/uL 0.0-0.45 [facility] Eosinophils/100 WBC Auto (Bl d)Ordered By: Ilene Lopez on 10-09-2023 Eosinophils/100 WBC (Bld) 3.5 % . [facility] Erythrocyte distribution wid th Auto (RBC) [Ratio]Ordered By: Ilene Calderon on 10-09-2023 Erythrocyte distribution width (RBC) [Ratio] 13.2 % 11.9-15.3 [facility] Glucose Glucometer (BldC) [M ass/Vol]Ordered By: Salazar Cabrera on 10-09-2023 Glucose [Mass/Vol] 299 mg/dL [facility] Comment on above: Random Glucose Refer ence Range is dependent on time and content of last meal. Glucose of more than 200 mg/dL in a nonstressed, ambulatory subject supports the diagnosis of Diabetes Mellitus. Glucose Poct Glucometerson 0 10-09-2023 Commemt1 Glu2: Cleaned Meter [facility] Comment on above: Result Comment: PERF ORMED BY: [facility] [address] [place] [address] PATHOLOGIST [employer] RIDGE HUERTA M.D. Performed By: #### G LULS ####Point of Care testing, Glucose [Mass/Vol] 299 mg/dL Normal [facility] Comment on above: Result Comment: [place] Glucose Reference Range is dependent on time and content of last meal. Glucose of more than 200 mg/dL in a nonstressed, ambulatory subject supports the diagnosis of Diabetes Mellitus. Performed By: #### G LULS ####Point of Care testing, Commemt1 Glu2: Cleaned Meter [facility] Comment on above: Result Comment: PERF ORMED BY: [facility] [address] [place] [address] PATHOLOGIST [employer] RIDGE HUERTA M.D. Performed By: #### G LULS ####Point of Care testing, Glucose [Mass/Vol] 188 mg/dL Normal [facility] Comment on above: Result Comment: [place] om Glucose Reference Range is dependent on time and content of last meal. Glucose of more than 200 mg/dL in a nonstressed, ambulatory subject supports the diagnosis of Diabetes Mellitus. Performed By: #### G LULS ####Point of Care testing, Glucose [Mass/Vol] 194 mg/dL Normal [facility] Comment on above: Result Comment: [place] om Glucose Reference Range is dependent on time and content of last meal. Glucose of more than 200 mg/dL in a nonstressed, ambulatory subject supports the diagnosis of Diabetes Mellitus. PERFORMED BY: [facility] [place] [address] PATHOLOGIST [employer] RIDGE HUERTA M.D. Performed By: #### G LULS ####Point of Care testing, Glucose [Mass/volume] in Ser um or PlasmaOrdered By: Ilene Lopez on 10-09-2023 Glucose [Mass/Vol] 143 mg/dL 70-100 [facility] Comment on above: ADA recommended refe rence rangeRandom Glucose Reference Range is dependent on time and content of last meal. Glucose of more than 200 mg/dL in a nonstressed, ambulatory subject supports the diagnosis of Diabetes Mellitus. Hematocrit Auto (Bld) [Volum e fraction]Ordered By: Ilene Lopez on 10-09-2023 Hematocrit (Bld) [Volume fraction] 30.3 % 34.0-46.4 [facility] Hemoglobin [Mass/volume] in BloodOrdered By: Ilene Lopez on 10-09-2023 Hemoglobin (Bld) [Mass/Vol] 10.3 g/dL 11.8-15.4 [facility] Leukocytes [#/volume] correc cherie for nucleated erythrocytes in Blood by Automated counOrdered By: Ilene Lopez on 10-09-2023 WBC corrected for nucl RBC Auto (Bld) [#/Vol] 13.6 10*3/uL 3.8-11.6 [facility] Lymphocytes Auto (Bld) [#/Vo l]Ordered By: Ilene Lopez on 10-09-2023 Lymphocytes (Bld) [#/Vol] 2.2 10*3/uL 1.00-4.8 [facility] Lymphocytes/100 WBC Auto (Bl d)Ordered By: Ilene Lopez on 10-09-2023 Lymphocytes/100 WBC (Bld) 16.5 % . [facility] MCH Auto (RBC) [Entitic mass ]Ordered By: Ilene Lopez on 10-09-2023 MCH (RBC) [Entitic mass] 29.9 pg 24.7-34.3 [facility] MCHC Auto (RBC) [Mass/Vol]Or dered By: Ilene Lopez on 10-09-2023 MCHC (RBC) [Mass/Vol] 34.0 g/dL 32.0-35.0 [facility] MCV Auto (RBC) [Entitic vol] Ordered By: Ilene Lopez on 10-09-2023 MCV (RBC) [Entitic vol] 88.1 fL 80-100 F [facility] Monocytes Auto (Bld) [#/Vol] Ordered By: Ilene Lopez on 10-09-2023 Monocytes (Bld) [#/Vol] 1.3 10*3/uL 0.0-0.8 [facility] Monocytes/100 WBC Auto (Bld) Ordered By: Ileen Lopez on 10-09-2023 Monocytes/100 WBC (Bld) 9.5 % . F [facility] Neutrophils Auto (Bld) [#/Vo l]Ordered By: Ilene Lopez on 10-09-2023 Neutrophils (Bld) [#/Vol] 9.6 10*3/uL 1.8-7.7 [facility] Neutrophils/100 WBC Auto (Bl d)Ordered By: Ilene Lopez on 10-09-2023 Neutrophils/100 WBC (Bld) 70.1 % . [facility] No Panel InformationOrdered By: Salazar Cabrera on 10-09-2023 Bedside Glucose Comment Glu2: cleaned meter [facility] No Panel InformationOrdered By: Ilene Lopez on 10-09-2023 Estimated GFR (CKD-EPI) > 60.0 mL/Min [facility] Creatinine Clearance (Chem 153.15 [facility] Nucleated erythrocytes [Pres ence] in Blood by Automated countOrdered By: Ilene Lopez on 10-09-2023 Nucleated RBC Auto Ql (Bld) 0.1 /100{WBC} 0-0.5 [facility] Platelet mean volume Auto (B ld) [Entitic vol]Ordered By: Ilene Lopez on 10-09-2023 Platelet mean volume (Bld) [Entitic vol] 7.9 fL 6.3-10.7 [facility] Platelets Auto (Bld) [#/Vol] Ordered By: Ilene Lopez on 10-09-2023 Platelets (Bld) [#/Vol] 242 10*3/uL 150-450 [facility] Potassium [Moles/volume] in Serum or PlasmaOrdered By: Ilene Lopez on 10-09-2023 Potassium [Moles/Vol] 3.4 mmol/L 3.5-5.1 [facility] RBC Auto (Bld) [#/Vol]Ordere d By: Ilene Lopez on 10-09-2023 RBC (Bld) [#/Vol] 3.44 10*6/uL 3.60-5.00 [facility] Serum or plasma anion gap de terminationOrdered By: Ilene Lopez on 10-09-2023 Anion gap [Moles/Vol] 11.8 mmol/L 6.0-15.0 [facility] Sodium [Moles/volume] in Ser um or PlasmaOrdered By: Ilene Lopez on 10-09-2023 Sodium [Moles/Vol] 136 mmol/L 136-145 [facility] Stool Cultureon 10-09-2023 Stool culture Comment c. diff Negative for Shiga Toxin 1 Negative for Shiga Toxin 2 A negative Shiga Toxin result may occur if the antigen level in the specimen is below the detection limit of the assay. Stool culture results No Salmonella, Shigella, Campy or E. coli 0157:H7 Isolated PERFORMED BY: [facility] [place] [address] PATHOLOGIST [employer] RIDGE HUERTA M.D. Normal [facility] Comment on above: Performed By: #### C USTOOL #### [address] Stool bacteria identificatio n by cultureOrdered By: BONG Pavon on 10-09-2023 Bacteria identified Cx Nom (Stl) [facility] Urea nitrogen [Mass/volume] in Serum or PlasmaOrdered By: Ilene Lopez on 10-09-2023 Urea nitrogen [Mass/Vol] 6 mg/dL 7- [facility] WBC Auto (Bld) [#/Vol]Ordere d By: Ilene Lopez on 10-09-2023 WBC (Bld) [#/Vol] 13.6 10*3/uL 3.8-11.6 [facility] Alanine aminotransferase [En zymatic activity/volume] in Serum or PlasmaOrdered By: BONG Pavon on 10-08-2023 ALT [Catalytic activity/Vol] 31 U/L 7-52 [facility] Albumin [Mass/volume] in Ser um or Plasma by Bromocresol green (BCG) dye binding methoOrdered By: BONG Pavon on 10-08-2023 Albumin BCG dye [Mass/Vol] 3.7 g/dL 3.5-5.7 [facility] Alkaline phosphatase [Enzyma tic activity/volume] in Serum or PlasmaOrdered By: BONG Pavon on 10-08-2023 ALP [Catalytic activity/Vol] 61 U/L 34-104 [facility] Aspartate aminotransferase [ Enzymatic activity/volume] in Serum or PlasmaOrdered By: BONG Pavon on 10-08-2023 AST [Catalytic activity/Vol] 40 U/L 13-39 [facility] Automated erythrocytes count in urine sediment (number/area)Ordered By: BONG Pavon on 10-08-2023 RBC Auto (Urine sed) [#/Area] 5-9 [HPF] 0-4 [facility] Automated leukocytes count i n urine sediment (number/area)Ordered By: BONG Pavon on 10-08-2023 WBC Auto (Urine sed) [#/Area] 3-4 [HPF] 0-4 [facility] Automated urine hyaline cast s count (number/volume)Ordered By: BONG Pavon on 10-08-2023 Hyaline casts Auto (U) [#/Vol] None seen [LPF] 0-1 [facility] Bilirubin Test strip Ql (U)O rdered By: BONG Pavon on 10-08-2023 Bilirubin Ql (U) 1+ Negative [facility] Bilirubin.total [Mass/volume ] in Serum or PlasmaOrdered By: BONG Pavon on 10-08-2023 Bilirubin [Mass/Vol] 0.6 mg/dL 0.3-1.0 [facility] CT abdomen pelvis w conon CT abdomen pelvis w con [facility] [place] [address] CT Scan Report Signed Patient: Rachel Mcgarry MR#: [id number] 1 : 1980 Acct:[id number] Age/Sex: 43 / F ADM Date: 10/07/23 Loc: Room: [address] [place] [address] Type: ADM IN Attending Dr: Beltran Pavon MD Copies to: BONG Motley Ordering Provider: BONG Motley Date of Service: 10/08/23 CT/CT abdomen pelvis w con: Abdominal pain/distended abdomen CT abdomen and pelvis with contrast CLINICAL DATA: Abdominal pain, distention and vomiting. Recent hysterectomy. COMPARISON: 10/07/2023 from [facility]. No report is available at [...] Eda Yañez M.D.10/08/2023 12:09 PM Dictation Location: [place] [address] Transcribed By: [facility] 10/08/23 1209 Dictated By: Eda Yañez MD 10/08/23 1142 Signed By: 10/08/23 1209 Normal [facility] Casts typing in urine sedime nt by light microscopyOrdered By: BONG Pavon on 10-08-2023 Casts LM Nom (Urine sed) None seen [LPF] None Seen [facility] Color Auto (U)Ordered By: MD ALMA Pavon on 10-08-2023 Color (U) Parker Yellow [facility] Complete Blood Count Auto Di ffon 10-08-2023 Basophils (Bld) [#/Vol] 0.1 10*3/uL Normal 0.0-0.2 [facility] Comment on above: Result Comment: PERF ORMED BY: [facility] [address] [place] [address] PATHOLOGIST [employer] RIDGE HUERTA M.D. Performed By: #### G LULS #### Point of Care testing , Basophils/100 WBC (Bld) 0.5 % Normal . F [facility] Comment on above: Performed By: #### G GOYOLS #### Point of Care testing , Eosinophils (Bld) [#/Vol] 0.2 10*3/uL Normal 0.0-0.45 [facility] Comment on above: Performed By: #### G GOYOLS #### Point of Care testing , Eosinophils/100 WBC (Bld) 1.3 % Normal . [facility] Comment on above: Performed By: #### G GOYOLS #### Point of Care testing , Erythrocyte distribution width (RBC) [Ratio] 13.2 % Normal 11.9-15.3 [facility] Comment on above: Performed By: #### G GOYOLS #### Point of Care testing , Hematocrit (Bld) [Volume fraction] 35.9 % Normal 34.0-46.4 [facility] Comment on above: Performed By: #### G GOYOLS #### Point of Care testing , Hemoglobin (Bld) [Mass/Vol] 12.1 g/dL Normal 11.8-15.4 [facility] Comment on above: Performed By: #### G GOYOLS #### Point of Care testing , Lymphocytes (Bld) [#/Vol] 3.0 10*3/uL Normal 1.00-4.8 [facility] Comment on above: Performed By: #### G GOYOLS #### Point of Care testing , Lymphocytes/100 WBC (Bld) 16.8 % Normal . [facility] Comment on above: Performed By: #### G GOYOLS #### Point of Care testing , MCH (RBC) [Entitic mass] 29.7 pg Normal 24.7-34.3 [facility] Comment on above: Performed By: #### G GOYOLS #### Point of Care testing , MCV (RBC) [Entitic vol] 88.3 fL Normal 80-100 F [facility] Comment on above: Performed By: #### G GOYOLS #### Point of Care testing , Mean Corpuscular HGB Conc 33.6 g/dL Normal 32.0-35.0 [facility] Comment on above: Performed By: #### G EDUARDO #### Point of Care testing , Monocytes (Bld) [#/Vol] 1.5 10*3/uL High 0.0-0.8 [facility] Comment on above: Performed By: #### G GOYOLS #### Point of Care testing , Monocytes/100 WBC (Bld) 8.4 % Normal . [facility] Comment on above: Performed By: #### G GOYOLS #### Point of Care testing , Neutrophils (Bld) [#/Vol] 12.9 10*3/uL High 1.8-7.7 [facility] Comment on above: Performed By: #### G GOYOLS #### Point of Care testing , Neutrophils/100 WBC (Bld) 73.0 % Normal . [facility] Comment on above: Performed By: #### Michael NANCELS #### Point of Care testing , NRBC% 0.1 /100{WBC} Normal 0-0.5 [facility] Comment on above: Performed By: #### Michael CLARK #### Point of Care testing , Platelet mean volume (Bld) [Entitic vol] 7.9 fL Normal 6.3-10.7 [facility] Comment on above: Performed By: #### G EDUARDO #### Point of Care testing , Platelets (Bld) [#/Vol] 274 10*3/uL Normal 150-450 [facility] Comment on above: Performed By: #### Michael NANCELS #### Point of Care testing , RBC (Bld) [#/Vol] 4.06 10*6/uL Normal 3.60-5.00 [facility] Comment on above: Performed By: #### Michael NANCELS #### Point of Care testing , WBC (Bld) [#/Vol] 17.6 10*3/uL High 3.8-11.6 [facility] Comment on above: Performed By: #### Michael CLARK #### Point of Care testing , Comprehensive Metabolic Pane rosa 10-08-2023 Albumin [Mass/Vol] 3.7 g/dL Normal 3.5-5.7 [facility] Comment on above: Performed By: #### C MP #### [address] Albumin/Globulin [Mass ratio] 1.4 {ratio} Normal [facility] Comment on above: Performed By: #### C MP #### [facility] [address] [place] [address] ALP [Catalytic activity/Vol] 61 U/L Normal 34-104 [facility] Comment on above: Performed By: #### C MP #### [address] ALT [Catalytic activity/Vol] 31 U/L Normal 7-52 [facility] Comment on above: Performed By: #### C MP #### [address] Anion gap [Moles/Vol] 14.8 mmol/L Normal 6.0-15.0 [facility] Comment on above: Performed By: #### C MP #### [address] AST [Catalytic activity/Vol] 40 U/L High 13-39 [facility] Comment on above: Performed By: #### C MP #### [address] Bilirubin [Mass/Vol] 0.6 mg/dL Normal 0.3-1.0 [facility] Comment on above: Performed By: #### C MP #### [address] Calcium [Mass/Vol] 7.8 mg/dL Low 8.6-10.3 [facility] Comment on above: Performed By: #### C MP #### [address] Chloride [Moles/Vol] 104 mmol/L Normal 98-107 [facility] Comment on above: Performed By: #### C MP #### [address] [place] [address] [place] CO2 [Moles/Vol] 20.2 mmol/L Low 21.0-31.0 [facility] Comment on above: Performed By: #### C MP #### [address] Creatinine [Mass/Vol] 0.58 mg/dL Low 0.60-1.20 [facility] Comment on above: Performed By: #### C MP #### [address] Creatinine Clr Calc Pharmacy 126.74 Normal [facility] Comment on above: Result Comment: PERF ORMED BY: [place] [address] PATHOLOGIST [employer] RIDGE HUERTA M.D. Performed By: #### C MP #### [address] GFR/1.73 sq M.predicted MDRD (S/P/Bld) [Vol rate/Area] mL/min/{1.73_m2} [facility] Comment on above: Performed By: #### C MP #### [address] Globulin (S) [Mass/Vol] 2.6 g/dL Normal [facility] Comment on above: Performed By: #### C MP #### [address] Glucose [Mass/Vol] 155 mg/dL High 70-100 [facility] Comment on above: Result Comment: [place] Glucose Reference Range is dependent on time and content of last meal. Glucose of more than 200 mg/dL in a nonstressed, ambulatory subject supports the diagnosis of Diabetes Mellitus. ADA recommended reference range Performed By: #### C MP #### [address] Potassium [Moles/Vol] 4.0 mmol/L Normal 3.5-5.1 [facility] Comment on above: Performed By: #### C MP #### [facility] [address] Protein [Mass/Vol] 6.3 g/dL Low 6.4-8.9 [facility] Comment on above: Performed By: #### C MP #### [facility] [address] Sodium [Moles/Vol] 135 mmol/L Low 136-145 [facility] Comment on above: Performed By: #### C MP #### [facility] [address] Urea nitrogen [Mass/Vol] 10 mg/dL Normal 7-25 [facility] Comment on above: Performed By: #### C MP #### [facility] [address] Albumin [Mass/Vol] 3.7 g/dL Normal 3.5-5.7 [facility] Comment on above: Performed By: #### L HOLA CMP ####[place] [id number] [facility] Albumin/Globulin [Mass ratio] 1.5 {ratio} Normal [facility] Comment on above: Performed By: #### L HOLA CMP ####[place] [id number] [facility] ALP [Catalytic activity/Vol] 62 U/L Normal 34-104 [facility] Comment on above: Performed By: #### L HOLA CMP ####[place] [id number] [facility] ALT [Catalytic activity/Vol] 34 U/L Normal 7-52 [facility] Comment on above: Performed By: #### L ACTPATO CMP ####[place] [id number] [facility] Anion gap [Moles/Vol] 14.3 mmol/L Normal 6.0-15.0 [facility] Comment on above: Performed By: #### L ACTPATO, CMP ####[place] [id number] [facility] AST [Catalytic activity/Vol] 74 U/L High 13-39 [facility] Comment on above: Performed By: #### L HOLA, CMP ####[place] [address] [place] [id number] [facility] Bilirubin [Mass/Vol] 0.5 mg/dL Normal 0.3-1.0 [facility] Comment on above: Performed By: #### L ACTPATO, CMP ####[place] [id number] [place] [id number] [facility] Calcium [Mass/Vol] 7.9 mg/dL Low 8.6-10.3 [facility] Comment on above: Performed By: #### L HOLA, CMP ####[place] [address] [place] [id number] [facility] Chloride [Moles/Vol] 102 mmol/L Normal 98-107 [facility] Comment on above: Performed By: #### L HOLA, CMP ####[place] [id number] [facility] CO2 [Moles/Vol] 21.0 mmol/L Normal 21.0-31.0 [facility] Comment on above: Performed By: #### L HOLA, CMP ####[place] [id number] [facility] Creatinine [Mass/Vol] 0.56 mg/dL Low 0.60-1.20 [facility] Comment on above: Performed By: #### L HOLA, CMP ####[place] [id number] [place] Creatinine Clr Calc Pharmacy 131.27 [facility] Comment on above: Result Comment: PERF ORMED BY: [facility] [address] [place] [address] PATHOLOGIST [employer] RIDGE HUERTA M.D. Performed By: #### L ACTPATO, CMP ####[place] [id number] [place] [id number] [place] GFR/1.73 sq M.predicted MDRD (S/P/Bld) [Vol rate/Area] mL/min/{1.73_m2} Normal [facility] Comment on above: Performed By: #### L HOLA, CMP ####[place] [address] [place] [address] [facility] Globulin (S) [Mass/Vol] 2.4 g/dL Normal F [facility] Comment on above: Performed By: #### L HOLA, CMP ####[place] [address] [place] [address] [facility] Glucose [Mass/Vol] 208 mg/dL High 70-100 [facility] Comment on above: Result Comment: [facility] Glucose Reference Range is dependent on time and content of last meal. Glucose of more than 200 mg/dL in a nonstressed, ambulatory subject supports the diagnosis of Diabetes Mellitus. ADA recommended reference range Performed By: #### L HOLA, CMP ####[place] [address] [place] [address] [facility] Potassium [Moles/Vol] 4.3 mmol/L Normal 3.5-5.1 [facility] Comment on above: Performed By: #### L HOLA CMP ####[address] [address] [facility] Protein [Mass/Vol] 6.1 g/dL Low 6.4-8.9 [facility] Comment on above: Performed By: #### L HOLA, CMP ####[address] [address] [facility] Sodium [Moles/Vol] 133 mmol/L Low 136-145 [facility] Comment on above: Performed By: #### L HOLA, CMP ####[place] [address] [place] [address] [facility] Urea nitrogen [Mass/Vol] 9 mg/dL Normal 7-25 [facility] Comment on above: Performed By: #### L HOLA, CMP ####[place] [address] [place] [address] [place] Dipstick and Microscopicon 0 10-08-2023 Appearance (U) Turbid Critically abnormal Clear [facility] Comment on above: Order Comment: Name Collection Type:: Martinez Catheter Performed By: #### U HCG #### [facility] [address] [place] [address] [place] Bacteria,Urine None Seen Normal None Seen [facility] Comment on above: Order Comment: Name Collection Type:: Martinez Catheter Performed By: #### U HCG #### [facility] [address] [place] [address] [place] Bilirubin,Urine 1+ High Negative [facility] Comment on above: Order Comment: Name Collection Type:: Martinez Catheter Performed By: #### U HCG #### [facility] [address] [place] [address] [place] Color (U) Parker Critically abnormal Yellow [facility] Comment on above: Order Comment: Name Collection Type:: Martinez Catheter Performed By: #### U HCG #### [facility] [address] [place] [address] Glucose Ql (U) 250 mg/dL High Normal [facility] Comment on above: Order Comment: Name Collection Type:: Martinez Catheter Performed By: #### U HCG #### [facility] [address] [place] [address] [place] Hyaline Casts,Urine None Seen Normal 0-1 [facility] Comment on above: Order Comment: Name Collection Type:: Martinez Catheter Performed By: #### U HCG #### [facility] [address] [place] [address] [place] Ketones Ql (U) Trace High Negative [facility] Comment on above: Order Comment: Name Collection Type:: Martinez Catheter Performed By: #### U HCG #### [facility] [address] [place] [address] [place] Leukocyte esterase Test strip Ql (U) Negative Normal Negative [facility] Comment on above: Order Comment: Name Collection Type:: Martinez Catheter Performed By: #### U HCG #### [facility] [address] [place] [address] [place] Nitrite,Urine Negative Normal Negative [facility] Comment on above: Order Comment: Name Collection Type:: Martinez Catheter Performed By: #### U HCG #### [facility] [address] [place] [address] [place] Occult Blood,Urine Negative Normal Negative [facility] Comment on above: Order Comment: Name Collection Type:: Martinez Catheter Result Comment: PERF ORMED BY: [place] [address] PATHOLOGIST [employer] RIDGE HUERTA M.D. Performed By: #### U HCG #### [facility] [address] [place] [address] Other Casts,Urine None Seen Normal None Seen [facility] Comment on above: Order Comment: Name Collection Type:: Martinez Catheter Result Comment: PERF ORMED BY: [place] [address] PATHOLOGIST [employer] RIDGE HUERTA M.D. Performed By: #### U HCG #### [facility] [address] [place] [address] pH (U) 5.5 [pH] Normal 5.0-9.0 [facility] Comment on above: Order Comment: Name Collection Type:: Martinez Catheter Performed By: #### U HCG #### [facility] [address] [place] [address] Protein (U) [Mass/Vol] 30 mg/dL High Negative [facility] Comment on above: Order Comment: Name Collection Type:: Martinez Catheter Performed By: #### U HCG #### [facility] [address] [place] [address] [place] RBC,Urine 5-9 High 0-4 [facility] Comment on above: Order Comment: Name Collection Type:: Martinez Catheter Performed By: #### U HCG #### [facility] [address] [place] [address] [place] Specificy [place],Urine > 1.050 High 1.00 1-1.03 0 [facility] Comment on above: Order Comment: Name Collection Type:: Martinez Catheter Performed By: #### U HCG #### [facility] [address] [place] [address] [place] Squamous Epithelial Cell,Urine 5-9 High 0-2 [facility] Comment on above: Order Comment: Name Collection Type:: Martinez Catheter Performed By: #### U HCG #### [facility] [address] Urobilinogen,Urine Normal Normal Normal [facility] Comment on above: Order Comment: Name Collection Type:: Martinez Catheter Performed By: #### U HCG #### [facility] [address] WBC,Urine 3-4 Normal 0-4 [facility] Comment on above: Order Comment: Name Collection Type:: Martinez Catheter Performed By: #### U HCG #### [facility] [address] Globulin Calc (S) [Mass/Vol] Ordered By: BONG Pavon on 10-08-2023 Globulin (S) [Mass/Vol] 2.6 g/dL F [facility] Glucose Poct Glucometerson 0 10-08-2023 Commemt1 Glu2: Cleaned Meter [facility] Comment on above: Result Comment: PERF ORMED BY: [place] [address] PATHOLOGIST [employer] RIDGE HUERTA M.D. Performed By: #### G LULS ####Point of Care testing, Glucose [Mass/Vol] 265 mg/dL Normal [facility] Comment on above: Result Comment: [facility] Glucose Reference Range is dependent on time and content of last meal. Glucose of more than 200 mg/dL in a nonstressed, ambulatory subject supports the diagnosis of Diabetes Mellitus. Performed By: #### G LULS ####Point of Care testing, Commemt1 Glu2: Cleaned Meter [facility] Comment on above: Result Comment: PERF ORMED BY: [place] [address] PATHOLOGIST [employer] RIDGE HUERTA M.D. Performed By: #### G LULS #### Point of Care testing , Glucose [Mass/Vol] 166 mg/dL Normal [facility] Comment on above: Result Comment: [facility] Glucose Reference Range is dependent on time and content of last meal. Glucose of more than 200 mg/dL in a nonstressed, ambulatory subject supports the diagnosis of Diabetes Mellitus. Performed By: #### G LULS #### Point of Care testing , Glucose [Mass/Vol] 168 mg/dL Normal [facility] Comment on above: Result Comment: [facility] Glucose Reference Range is dependent on time and content of last meal. Glucose of more than 200 mg/dL in a nonstressed, ambulatory subject supports the diagnosis of Diabetes Mellitus. PERFORMED BY: [facility] [address] [place] [address] PATHOLOGIST [employer] RIDGE HUERTA M.D. Performed By: #### G LULS #### Point of Care testing , Ketones Auto test strip (U) [Mass/Vol]Ordered By: BONG Pavon on 10-08-2023 Ketones (U) [Mass/Vol] Trace Negative [facility] Lactate [Moles/volume] in Se rum or PlasmaOrdered By: BONG Pavon on 10-08-2023 Lactate [Moles/Vol] 1.9 mmol/L 0.5-2.2 [facility] Lactic Acidon 10-08-2023 Lactate [Moles/Vol] 2.0 mmol/L Off scale high 0.5-2.2 F [facility] Comment on above: Result Comment: Crit ical Result : Called to and read back by: BERT JAEGER/Bon at: 10/08/2023 07:31:51 by:[id number] PERFORMED BY: [facility] [address] [place] [address] PATHOLOGIST [employer] RIDGE HUERTA M.D. Performed By: #### L ACTIC ####[facility] [address] [place] [address] [facility] Lactate [Moles/Vol] 2.6 mmol/L Off scale high 0.5-2.2 F [facility] Comment on above: Result Comment: Crit ical Result : Called to and read back by: CLARISSA PATEL at: 10/08/2023 00:48:06 by:HENRY PERFORMED BY: [facility] [address] [facility] [id number] PATHOLOGIST [employer] RIDGE HUERTA M.D. Performed By: #### L ACTPATO, CMP ####[place] [address] [place] [id number] [facility] Lactic Acid Reflexon 024 Lactic Acid Reflex 1.9 mmol/L Normal 0.5-2.2 [facility] Comment on above: Result Comment: PERF ORMED BY: [facility] [address] [facility] [id number] PATHOLOGIST [employer] RIDGE HUERTA M.D. Performed By: #### L ACTPATO RFX ####[place] [address] [place] [id number] [facility] Nitrite Test strip Ql (U)Ord ered By: BONG Pavon on 10-08-2023 Nitrite Ql (U) Negative Negative [facility] Protein Auto test strip (U) [Mass/Vol]Ordered By: BONG Pavon on 10-08-2023 Protein (U) [Mass/Vol] 30 mg/dL Negative [facility] Protein [Mass/volume] in Ser um or PlasmaOrdered By: BONG Pavon on 10-08-2023 Protein [Mass/Vol] 6.3 g/dL 6.4-8.9 [facility] Serum or plasma albumin/glob ulin mass ratioOrdered By: BONG Pavon on 10-08-2023 Albumin/Globulin [Mass ratio] 1.4 {ratio} [facility] Specific gravity Auto test s trip (U) [Rel density]Ordered By: BONG Pavon on 10-08-2023 Specific gravity (U) [Rel density] > 1.050 1.001-1.03 0 [facility] Squamous epithelial cells de tection in urine sediment by light microscopyOrdered By: BONG Pavon on 10-08-2023 Epithelial cells.squamous LM Ql (Urine sed) 5-9 [HPF] 0-2 [facility] Urine bacteria detection by automated methodOrdered By: BONG Pavon on 10-08-2023 Bacteria Auto Ql (U) None seen None Seen [facility] Urine clarity by refractomet ry automatedOrdered By: BONG Pavon on 10-08-2023 Clarity Refractometry automated (U) Turbid Clear [facility] Urine glucose measurement by automated test strip (mass/volume)Ordered By: ARIELLE Pavon on 10-08-2023 Glucose Auto test strip (U) [Mass/Vol] 250 mg/dL Normal [facility] Urine hemoglobin detection b y automated test stripOrdered By: BONG Pavon on 10-08-2023 Hemoglobin Auto test strip Ql (U) Negative Negative [facility] Urine leukocyte esterase det ection by automated test stripOrdered By: BONG Pavon on 10-08-2023 Leukocyte esterase Auto test strip Ql (U) Negative Negative [facility] Urobilinogen Auto test strip (U) [Mass/Vol]Ordered By: BONG Pavon on 10-08-2023 Urobilinogen (U) [Mass/Vol] Normal mg/dL Normal [facility] pH Auto test strip (U)Ordere d By: BONG Pavon on 10-08-2023 pH (U) 5.5 [pH] 5.0-9.0 [facility] Glucose Glucometer (BldC) [M ass/Vol]Ordered By: Carri Manuel on 09-28-2023 Glucose [Mass/Vol] 196 mg/dL [facility] Comment on above: Random Glucose Refer ence Range is dependent on time and content of last meal. Glucose of more than 200 mg/dL in a nonstressed, ambulatory subject supports the diagnosis of Diabetes Mellitus. Glucose Poct Glucometerson 1 11-29-2022 Glucose [Mass/Vol] 196 mg/dL Normal [facility] Comment on above: Result Comment: [place] Glucose Reference Range is dependent on time and content of last meal. Glucose of more than 200 mg/dL in a nonstressed, ambulatory subject supports the diagnosis of Diabetes Mellitus. PERFORMED BY: [place] [address] [place] [address] PATHOLOGIST [employer] RIDGE HUERTA M.D. Performed By: #### G LULS ####Point of Care testing, Commemt1 Glu2: Cleaned Meter Normal [facility] Comment on above: Result Comment: PERF ORMED BY: [place] [address] PATHOLOGIST [employer] RIDGE HUERTA M.D. Performed By: #### G LULS #### Point of Care testing , Glucose [Mass/Vol] 153 mg/dL Normal [facility] Comment on above: Result Comment: [facility] Glucose Reference Range is dependent on time and content of last meal. Glucose of more than 200 mg/dL in a nonstressed, ambulatory subject supports the diagnosis of Diabetes Mellitus. Performed By: #### G LULS #### Point of Care testing , HCG ( test) IA.mateus d Ql (U)Ordered By: Mic Álvarez on 09-28-2023 HCG ( test) Ql (U) Negative [facility] HCG,Urineon 09-28-2023 Beta HCG ( test) Ql (U) Negative Normal [facility] Comment on above: Result Comment: PERF ORMED BY: [place] [address] PATHOLOGIST [employer] RIDGE HUERTA M.D. Performed By: #### U HCG #### [address] 09-28-2023 L ------- Specimen: [id number] Received: 09/28/23 Status: BLUE Neal Num: [id number] Spec Type: Surgical Subm Dr: Carri Manuel, Tissues: A Uterus w/ or w/o tubes ovaries except neoplastic or prolap (CERVIX, MIGUELINA TU Procedures: , Gross/Micro L5 Age/ Patient Sex Location Account Attending Physician Rachel Mcgarry 43/F [place] [id number] Carri Manuel DO SPEC NUM: [id number] RECD: 09/28/23 STATUS: BLUE VAL NUM: [id number] JOSEPH: 09/28/[address] [facility] [address]: Carri Manuel DO ENTERED: 09/28/23 [facility] DR: HALLEY TYPE: Surgical DEPT: S ORDERED: , Gross/Micro L5 ORDERED: , Gross/Micro L5 Pathological [...] an unremarkable, pinpoint lumen on cut section. Account Assistant sections are submitted in 6 cassettes as follows: A1 - Anterior cervix A2 - Posterior cervix A3 - Anterior endomyometrium Specimen: [id number] Received: 09/28/23 Status: BLUE Britoeduarda Num: [id number] Spec Type: Surgical Subm Dr: Carri Manuel DO Tissues: A Uterus w/ or w/o tubes ovaries except neoplastic or prolap (CERVIX, MIGUELINA TU Procedures: , Gross/Micro L5 Patient: Rachel Mcgarry [id number] (Continued) Specimen: [id number] Received: 09/28/23 (Continued) Gross Description (Continued) Signed (signature on file) Nikkie Munguia MD 09/29/23 2213 Specimen: [id number] Received: 09/28/23 Status: BLUE Neal Num: [id number] Spec Type: Surgical Subm Dr: Carri Manuel DO Tissues: A Uterus w/ or w/o tubes ovaries except neoplastic or prolap (CERVIX, MIGUELINA TU Procedures: , Gross/Micro L5 Patient: Rachel Mcgarry [id number] (Continued) Specimen: [id number] Received: 09/28/23 (Continued) Gross Description (Continued) A4 - Posterior endomyometrium A5 - Right fallopian tube A6 - Left fallopian tube Microscopic Description Six H E slides reviewed. The microscopic examination confirms the diagnosis. CPT Codes 35923 Specimen: [id number] Received: 09/28/23 Status: BLUE Neal Num: [id number] Spec Type: Surgical Subm Dr: Carri Manuel DO Tissues: A Uterus w/ or w/o tubes ovaries except neoplastic or prolap (CERVIX, MIGUELINA TU Procedures: , Gross/Micro L5 Patient: Rachel Mcgarry [id number] (Continued) Signed (signature on file) Nikkie Munguia MD 09/29/232212 [facility] No Panel InformationOrdered By: Carri Manuel on 09-28-2023 Bedside Glucose Comment Glu2: cleaned meter [facility] Basic Metabolic Panelon 09-03 Anion gap [Moles/Vol] 14.5 mmol/L Normal 6.0-15.0 [facility] Comment on above: Performed By: #### C MP #### [facility] [address] Calcium [Mass/Vol] 9.3 mg/dL Normal 8.6-10.3 [facility] Comment on above: Result Comment: PERF ORMED BY: [place] [address] PATHOLOGIST [employer] RIDGE HUERTA M.D. Performed By: #### C MP #### [facility] [address] [place] [address] [place] Chloride [Moles/Vol] 99 mmol/L Normal 98-107 [facility] Comment on above: Performed By: #### C MP #### [facility] [address] CO2 [Moles/Vol] 25.5 mmol/L Normal 21.0-31.0 [facility] Comment on above: Performed By: #### C MP #### [facility] [address] [place] [address] [place] Creatinine [Mass/Vol] 0.68 mg/dL Normal 0.60-1.20 [facility] Comment on above: Performed By: #### C MP #### [facility] [address] [place] [address] [place] GFR/1.73 sq M.predicted MDRD (S/P/Bld) [Vol rate/Area] mL/min/{1.73_m2} [facility] Comment on above: Performed By: #### C MP #### [facility] [address] Glucose [Mass/Vol] 355 mg/dL High 70-100 [facility] Comment on above: Result Comment: [facility] Glucose Reference Range is dependent on time and content of last meal. Glucose of more than 200 mg/dL in a nonstressed, ambulatory subject supports the diagnosis of Diabetes Mellitus. ADA recommended reference range Performed By: #### C MP #### [facility] [address] Potassium [Moles/Vol] 5.0 mmol/L Normal 3.5-5.1 [facility] Comment on above: Performed By: #### C MP #### [address] Sodium [Moles/Vol] 134 mmol/L Low 136-145 [facility] Comment on above: Performed By: #### C MP #### [address] Urea nitrogen [Mass/Vol] 13 mg/dL Normal 7-25 [facility] Comment on above: Performed By: #### C MP #### [address] Basophils Auto (Bld) [#/Vol] Ordered By: Carri Manuel on 09-16-2023 Basophils (Bld) [#/Vol] 0.1 10*3/uL 0.0-0.2 [facility] Basophils/100 WBC Auto (Bld) Ordered By: Carri Manuel on 09-16-2023 Basophils/100 WBC (Bld) 0.6 % . F [facility] Calcium [Mass/volume] in Ser um or PlasmaOrdered By: Carri Manuel on 09-16-2023 Calcium [Mass/Vol] 9.3 mg/dL 8.6-10.3 [facility] Carbon dioxide, total [Moles /volume] in Serum or PlasmaOrdered By: Carri Manuel on 09-16-2023 CO2 [Moles/Vol] 25.5 mmol/L 21.0-31.0 [facility] Chloride [Moles/volume] in S alissa or PlasmaOrdered By: Carri Manuel on 09-16-2023 Chloride [Moles/Vol] 99 mmol/L 98-107 [facility] Complete Blood Count Auto Di ffon 09-16-2023 Basophils (Bld) [#/Vol] 0.1 10*3/uL Normal 0.0-0.2 [facility] Comment on above: Result Comment: PERF ORMED BY: [place] [address] PATHOLOGIST [employer] RIDGE HUERTA M.D. Performed By: #### C MP #### [address] Basophils/100 WBC (Bld) 0.6 % Normal . [facility] Comment on above: Performed By: #### C MP #### [address] Eosinophils (Bld) [#/Vol] 0.1 10*3/uL Normal 0.0-0.45 [facility] Comment on above: Performed By: #### C MP #### [address] Eosinophils/100 WBC (Bld) 0.5 % Normal . [facility] Comment on above: Performed By: #### C MP #### [address] Erythrocyte distribution width (RBC) [Ratio] 13.3 % Normal 11.9-15.3 [facility] Comment on above: Performed By: #### C MP #### [address] Hematocrit (Bld) [Volume fraction] 38.3 % Normal 34.0-46.4 [facility] Comment on above: Performed By: #### C MP #### [address] Hemoglobin (Bld) [Mass/Vol] 12.8 g/dL Normal 11.8-15.4 [facility] Comment on above: Performed By: #### C MP #### [address] Lymphocytes (Bld) [#/Vol] 3.1 10*3/uL Normal 1.00-4.8 [facility] Comment on above: Performed By: #### C MP #### [address] Lymphocytes/100 WBC (Bld) 24.9 % Normal . [facility] Comment on above: Performed By: #### C MP #### [address] MCH (RBC) [Entitic mass] 29.7 pg Normal 24.7-34.3 [facility] Comment on above: Performed By: #### C MP #### [address] MCV (RBC) [Entitic vol] 88.8 fL Normal 80-100 [facility] Comment on above: Performed By: #### C MP #### [address] Mean Corpuscular HGB Conc 33.5 g/dL Normal 32.0-35.0 [facility] Comment on above: Performed By: #### C MP #### [address] Monocytes (Bld) [#/Vol] 0.9 10*3/uL High 0.0-0.8 [facility] Comment on above: Performed By: #### C MP #### [address] Monocytes/100 WBC (Bld) 7.5 % Normal . [facility] Comment on above: Performed By: #### C MP #### [place] [address] [place] Neutrophils (Bld) [#/Vol] 8.3 10*3/uL High 1.8-7.7 [facility] Comment on above: Performed By: #### C MP #### [place] [address] [place] Neutrophils/100 WBC (Bld) 66.5 % Normal . [facility] Comment on above: Performed By: #### C MP #### [facility] [address] NRBC% 0.1 /100{WBC} Normal 0-0.5 [facility] Comment on above: Performed By: #### C MP #### [facility] [address] Platelet mean volume (Bld) [Entitic vol] 8.2 fL Normal 6.3-10.7 [facility] Comment on above: Performed By: #### C MP #### [facility] [address] Platelets (Bld) [#/Vol] 305 10*3/uL Normal 150-450 [facility] Comment on above: Performed By: #### C MP #### [facility] [address] RBC (Bld) [#/Vol] 4.31 10*6/uL Normal 3.60-5.00 [facility] Comment on above: Performed By: #### C MP #### [facility] [address] [place] [address] WBC (Bld) [#/Vol] 12.5 10*3/uL High 3.8-11.6 [facility] Comment on above: Performed By: #### C MP #### [address] Creatinine [Mass/volume] in Serum or PlasmaOrdered By: Carri Manuel on 09-16-2023 Creatinine [Mass/Vol] 0.68 mg/dL 0.60-1.20 [facility] Eosinophils Auto (Bld) [#/Vo l]Ordered By: Carri Manuel on 09-16-2023 Eosinophils (Bld) [#/Vol] 0.1 10*3/uL 0.0-0.45 [facility] Eosinophils/100 WBC Auto (Bl d)Ordered By: Carri Manuel on 09-16-2023 Eosinophils/100 WBC (Bld) 0.5 % . [facility] Erythrocyte distribution wid th Auto (RBC) [Ratio]Ordered By: Carri Manuel on 09-16-2023 Erythrocyte distribution width (RBC) [Ratio] 13.3 % 11.9-15.3 [facility] Glucose [Mass/volume] in Ser um or PlasmaOrdered By: Carri Manuel on 09-16-2023 Glucose [Mass/Vol] 355 mg/dL 70-100 [facility] Comment on above: ADA recommended refe rence rangeRandom Glucose Reference Range is dependent on time and content of last meal. Glucose of more than 200 mg/dL in a nonstressed, ambulatory subject supports the diagnosis of Diabetes Mellitus. Hematocrit Auto (Bld) [Volum e fraction]Ordered By: Carri Manuel on 09-16-2023 Hematocrit (Bld) [Volume fraction] 38.3 % 34.0-46.4 [facility] Hemoglobin [Mass/volume] in BloodOrdered By: Carri Manuel on 09-16-2023 Hemoglobin (Bld) [Mass/Vol] 12.8 g/dL 11.8-15.4 [facility] Leukocytes [#/volume] correc cherie for nucleated erythrocytes in Blood by Automated counOrdered By: Carri Manuel on 09-16-2023 WBC corrected for nucl RBC Auto (Bld) [#/Vol] 12.5 10*3/uL 3.8-11.6 [facility] Lymphocytes Auto (Bld) [#/Vo l]Ordered By: Carri Manuel on 09-16-2023 Lymphocytes (Bld) [#/Vol] 3.1 10*3/uL 1.00-4.8 [facility] Lymphocytes/100 WBC Auto (Bl d)Ordered By: Carri Manuel on 09-16-2023 Lymphocytes/100 WBC (Bld) 24.9 % . [facility] MCH Auto (RBC) [Entitic mass ]Ordered By: Carri Manuel on 09-16-2023 MCH (RBC) [Entitic mass] 29.7 pg 24.7-34.3 [facility] MCHC Auto (RBC) [Mass/Vol]Or dered By: Carri Manuel on 09-16-2023 MCHC (RBC) [Mass/Vol] 33.5 g/dL 32.0-35.0 [facility] MCV Auto (RBC) [Entitic vol] Ordered By: Carri Manuel on 09-16-2023 MCV (RBC) [Entitic vol] 88.8 fL 80-100 [facility] Monocytes Auto (Bld) [#/Vol] Ordered By: Carri Manuel on 09-16-2023 Monocytes (Bld) [#/Vol] 0.9 10*3/uL 0.0-0.8 [facility] Monocytes/100 WBC Auto (Bld) Ordered By: Carri Manuel on 09-16-2023 Monocytes/100 WBC (Bld) 7.5 % . F [facility] Neutrophils Auto (Bld) [#/Vo l]Ordered By: Carri Manuel on 09-16-2023 Neutrophils (Bld) [#/Vol] 8.3 10*3/uL 1.8-7.7 [facility] Neutrophils/100 WBC Auto (Bl d)Ordered By: Carri Manuel on 09-16-2023 Neutrophils/100 WBC (Bld) 66.5 % . [facility] No Panel InformationOrdered By: Carri Manuel on 09-16-2023 Estimated GFR (CKD-EPI) > 60.0 mL/Min [facility] Creatinine Clearance (Chem N/A [facility] Nucleated erythrocytes [Pres ence] in Blood by Automated countOrdered By: Carri Manuel on 09-16-2023 Nucleated RBC Auto Ql (Bld) 0.1 /100{WBC} 0-0.5 [facility] PST Type and Screenon 2022 ABO and Rh group Nom (Bld) Blood group A Rh(D) positive Normal [facility] Comment on above: Order Comment: Date of Surgery: [id number] Result Comment: PERF ORMED BY: [facility] [address] [place] [address] PATHOLOGIST [employer] RIDGE HUERTA M.D. Platelet mean volume Auto (B ld) [Entitic vol]Ordered By: Carri Manuel on 09-16-2023 Platelet mean volume (Bld) [Entitic vol] 8.2 fL 6.3-10.7 [facility] Platelets Auto (Bld) [#/Vol] Ordered By: Carri Manuel on 09-16-2023 Platelets (Bld) [#/Vol] 305 10*3/uL 150-450 [facility] Potassium [Moles/volume] in Serum or PlasmaOrdered By: Carri Manuel on 09-16-2023 Potassium [Moles/Vol] 5.0 mmol/L 3.5-5.1 [facility] RBC Auto (Bld) [#/Vol]Ordere d By: Carri Manuel on 09-16-2023 RBC (Bld) [#/Vol] 4.31 10*6/uL 3.60-5.00 [facility] Serum or plasma anion gap de terminationOrdered By: Carri Manuel on 09-16-2023 Anion gap [Moles/Vol] 14.5 mmol/L 6.0-15.0 [facility] Sodium [Moles/volume] in Ser um or PlasmaOrdered By: Carri Manuel on 09-16-2023 Sodium [Moles/Vol] 134 mmol/L 136-145 [facility] Urea nitrogen [Mass/volume] in Serum or PlasmaOrdered By: Carri Manuel on 09-16-2023 Urea nitrogen [Mass/Vol] 13 mg/dL 7-25 [facility] WBC Auto (Bld) [#/Vol]Ordere d By: Carri Manuel on 09-16-2023 WBC (Bld) [#/Vol] 12.5 10*3/uL 3.8-11.6 [facility] ABO/Rh Retypeon 07-13-2023 ABO/RH Recheck Result Positive Normal [facility] Comment on above: Result Comment: PERF ORMED BY: [facility] [address] [place] [address] PATHOLOGIST [employer] RIDGE HUERTA M.D. Glucose Glucometer ([facility]) [M ass/Vol]Ordered By: Carri Manuel on 07-13-2023 Glucose [Mass/Vol] 119 mg/dL [facility] Comment on above: Random Glucose Refer ence Range is dependent on time and content of last meal. Glucose of more than 200 mg/dL in a nonstressed, ambulatory subject supports the diagnosis of Diabetes Mellitus. Glucose Poct Glucometerson 1 Glucose [Mass/Vol] 119 mg/dL Normal [facility] Comment on above: Result Comment: [place] [facility] Glucose Reference Range is dependent on time and content of last meal. Glucose of more than 200 mg/dL in a nonstressed, ambulatory subject supports the diagnosis of Diabetes Mellitus. PERFORMED BY: [place] [address] PATHOLOGIST [employer] RIDGE HUERTA M.D. Performed By: #### G LULS ####Point of Care testing, Commemt1 Glu2: Cleaned Meter Normal [facility] Comment on above: Result Comment: PERF ORMED BY: [place] [address] PATHOLOGIST [employer] RIDGE HU[employer]A M.D. Performed By: #### G LULS #### Point of Care testing , Glucose [Mass/Vol] 133 mg/dL Normal [facility] Comment on above: Result Comment: [place] [facility] Glucose Reference Range is dependent on time and content of last meal. Glucose of more than 200 mg/dL in a nonstressed, ambulatory subject supports the diagnosis of Diabetes Mellitus. Performed By: #### G LULS #### Point of Care testing , HCG ( test) IAanil d Ql (U)Ordered By: Julio Monroe on 07-13-2023 HCG ( test) Ql (U) Negative [facility] HCG,Urineon 07-13-2023 Beta HCG ( test) Ql (U) Negative [facility] Comment on above: Result Comment: PERF ORMED BY: [place] [address] PATHOLOGIST [employer] RIDGE HUERTA M.D. Performed By: #### C MP #### [address] 07-13-2023 L ------- Specimen: [id number] Received: 07/13/23 Status: BLUE Neal Num: [id number] Spec Type: Surgical Subm Dr: Carri Manuel DO Tissues: A Endometrium - Curettings ([facility]) Procedures: HE/2, Gross/Micro L4 Age/ Patient Sex Location Account Attending Physician Rachel Mcgarry 43/F [place] [id number] Carri Manuel DO SPEC NUM: [id number] RECD: 07/13/23 STATUS: BLUE NEAL NUM: [id number] JOSEPH: 07/13/23- FELECIA DR: Carri Manuel DO ENTERED: 07/13/[address]: SPEC TYPE: Surgical DEPT: S ORDERED: [...] submitted in one cassette labeled A1. Specimen: [id number] Received: 07/13/23 Status: BLUE Britoeudarda Num: [id number] Spec Type: Surgical Subm Dr: Carri Manuel DO Tissues: A Endometrium - Curettings (EMC) Procedures: HE/2, Gross/Micro L4 Patient: Rachel Mcgarry [id number] (Continued) Specimen: [id number] Received: 07/13/23 (Continued) Signed (signature on file) Philomena Grimm MD 07/14/23 1608 Specimen: [id number] Received: 07/13/23 Status: BLUE Neal Num: [id number] Spec Type: Surgical Subm Dr: Carri Manuel DO Tissues: A Endometrium - Curettings (EMC) Procedures: HE/2, Gross/Micro L4 Patient: Rachel Mcgarry [id number] (Continued) Specimen: [id number] Received: 07/13/23 (Continued) Microscopic Description Two H E slides reviewed. The microscopic examination confirms the diagnosis. CPT Codes 70730 Specimen: [id number] Received: 07/13/23 Status: BLUE Neal Num: [id number] Spec Type: Surgical Subm Dr: Carri Manuel DO Tissues: A Endometrium - Curettings (EMC) Procedures: HE/Marely, Gross/Micro L4 Patient: Rachel Mcgarry [id number] (Continued) Signed (signature on file) Philomena Grimm MD 07/14/23 1608 Normal [facility] No Panel InformationOrdered By: Carri Manuel on 07-13-2023 Bedside Glucose Comment Glu2: cleaned meter [facility] Basic Metabolic Panelon 06-05 Anion gap [Moles/Vol] 14.6 mmol/L Normal 6.0-15.0 [facility] Comment on above: Performed By: #### C MP #### [facility] [address] Calcium [Mass/Vol] 9.2 mg/dL Normal 8.6-10.3 [facility] Comment on above: Result Comment: PERF ORMED BY: [place] [address] PATHOLOGIST [employer] RIDGE [employer]A M.D. Performed By: #### C MP #### [facility] [address] [place] [address] [place] Chloride [Moles/Vol] 100 mmol/L Normal 98-107 [facility] Comment on above: Performed By: #### C MP #### [facility] [address] [place] [address] [place] CO2 [Moles/Vol] 26.7 mmol/L Normal 21.0-31.0 [facility] Comment on above: Performed By: #### C MP #### [facility] [address] [place] [address] [place] Creatinine [Mass/Vol] 0.54 mg/dL Low 0.60-1.20 [facility] Comment on above: Performed By: #### C MP #### [facility] [address] [place] [address] [place] GFR/1.73 sq M.predicted MDRD (S/P/Bld) [Vol rate/Area] mL/min/{1.73_m2} [facility] Comment on above: Performed By: #### C MP #### [facility] [address] [place] [address] [place] Glucose [Mass/Vol] 134 mg/dL High 70-100 [facility] Comment on above: Result Comment: [place] Glucose Reference Range is dependent on time and content of last meal. Glucose of more than 200 mg/dL in a nonstressed, ambulatory subject supports the diagnosis of Diabetes Mellitus. ADA recommended reference range Performed By: #### C MP #### [facility] [address] Potassium [Moles/Vol] 4.3 mmol/L Normal 3.5-5.1 [facility] Comment on above: Performed By: #### C MP #### [facility] [address] Sodium [Moles/Vol] 137 mmol/L Normal 136-145 [facility] Comment on above: Performed By: #### C MP #### [facility] [address] Urea nitrogen [Mass/Vol] 11 mg/dL Normal 7-25 [facility] Comment on above: Performed By: #### C MP #### [facility] [address] Basophils Auto (Bld) [#/Vol] Ordered By: Carri Manuel on 06-30-2023 Basophils (Bld) [#/Vol] 0.1 10*3/uL 0.0-0.2 [facility] Basophils/100 WBC Auto (Bld) Ordered By: Carri Manuel on 06-30-2023 Basophils/100 WBC (Bld) 0.7 % . F [facility] Calcium [Mass/volume] in Ser um or PlasmaOrdered By: Carri Manuel on 06-30-2023 Calcium [Mass/Vol] 9.2 mg/dL 8.6-10.3 [facility] Carbon dioxide, total [Moles /volume] in Serum or PlasmaOrdered By: Carri Manuel on 06-30-2023 CO2 [Moles/Vol] 26.7 mmol/L 21.0-31.0 [facility] Chloride [Moles/volume] in S alissa or PlasmaOrdered By: Carri Manuel on 06-30-2023 Chloride [Moles/Vol] 100 mmol/L 98-107 [facility] Complete Blood Count Auto Di ffon 06-30-2023 Basophils (Bld) [#/Vol] 0.1 10*3/uL Normal 0.0-0.2 [facility] Comment on above: Result Comment: PERF ORMED BY: [facility] [place] [address] PATHOLOGIST [employer]IDGE [employer]A M.D. Performed By: #### G LULS #### Point of Care testing , Basophils/100 WBC (Bld) 0.7 % Normal . [facility] Comment on above: Performed By: #### G LULS #### Point of Care testing , Eosinophils (Bld) [#/Vol] 0.1 10*3/uL Normal 0.0-0.45 [facility] Comment on above: Performed By: #### G LULS #### Point of Care testing , Eosinophils/100 WBC (Bld) 0.4 % Normal . [facility] Comment on above: Performed By: #### G LULS #### Point of Care testing , Erythrocyte distribution width (RBC) [Ratio] 13.3 % Normal 11.9-15.3 [facility] Comment on above: Performed By: #### G LULS #### Point of Care testing , Hematocrit (Bld) [Volume fraction] 38.9 % Normal 34.0-46.4 [facility] Comment on above: Performed By: #### G LULS #### Point of Care testing , Hemoglobin (Bld) [Mass/Vol] 13.0 g/dL Normal 11.8-15.4 [facility] Comment on above: Performed By: #### G LULS #### Point of Care testing , Lymphocytes (Bld) [#/Vol] 4.3 10*3/uL Normal 1.00-4.8 [facility] Comment on above: Performed By: #### G LULS #### Point of Care testing , Lymphocytes/100 WBC (Bld) 27.8 % Normal . [facility] Comment on above: Performed By: #### G LULS #### Point of Care testing , MCH (RBC) [Entitic mass] 30.0 pg Normal 24.7-34.3 [facility] Comment on above: Performed By: #### G GOYOLS #### Point of Care testing , MCV (RBC) [Entitic vol] 89.6 fL Normal 80-100 [facility] Comment on above: Performed By: #### G GOYOLS #### Point of Care testing , Mean Corpuscular HGB Conc 33.5 g/dL Normal 32.0-35.0 [facility] Comment on above: Performed By: #### G GOYOLS #### Point of Care testing , Monocytes (Bld) [#/Vol] 1.2 10*3/uL High 0.0-0.8 [facility] Comment on above: Performed By: #### G GOYOLS #### Point of Care testing , Monocytes/100 WBC (Bld) 7.5 % Normal . [facility] Comment on above: Performed By: #### G EDUARDO #### Point of Care testing , Neutrophils (Bld) [#/Vol] 9.8 10*3/uL High 1.8-7.7 [facility] Comment on above: Performed By: #### G EDUARDO #### Point of Care testing , Neutrophils/100 WBC (Bld) 63.6 % Normal . [facility] Comment on above: Performed By: #### G GOYOLS #### Point of Care testing , NRBC% 0.0 /100{WBC} Normal 0-0.5 [facility] Comment on above: Performed By: #### G EDUARDO #### Point of Care testing , Platelet mean volume (Bld) [Entitic vol] 7.9 fL Normal 6.3-10.7 [facility] Comment on above: Performed By: #### G EDUARDO #### Point of Care testing , Platelets (Bld) [#/Vol] 275 10*3/uL Normal 150-450 [facility] Comment on above: Performed By: #### G EDUARDO #### Point of Care testing , RBC (Bld) [#/Vol] 4.34 10*6/uL Normal 3.60-5.00 [facility] Comment on above: Performed By: #### G LULS #### Point of Care testing , WBC (Bld) [#/Vol] 15.4 10*3/uL High 3.8-11.6 [facility] Comment on above: Performed By: #### G LULS #### Point of Care testing , Creatinine [Mass/volume] in Serum or PlasmaOrdered By: Carri Manuel on 06-30-2023 Creatinine [Mass/Vol] 0.54 mg/dL 0.60-1.20 [facility] ECG 12 lead ECGon 06-30-2023 ECG 12 lead ECG [facility] [place] [address] Electrocardiograph Report Signed Patient: Rachel Mcgarry MR#: [id number] 1 : 1980 Acct:[id number] Age/Sex: 43 / F ADM Date: 06/30/23 Loc: Room: Type: [facility] Attending Dr: Carri Manuel DO Ordering Provider: Carri Manuel DO Date of Service: 06/30/23 ECG/ECG 12 [...] By: MUS Signed By Vamsi Ospina MD 0818 Normal [facility] Eosinophils Auto (Bld) [#/Vo l]Ordered By: Carri Manuel on 06-30-2023 Eosinophils (Bld) [#/Vol] 0.1 10*3/uL 0.0-0.45 [facility] Eosinophils/100 WBC Auto (Bl d)Ordered By: Carri Manuel on 06-30-2023 Eosinophils/100 WBC (Bld) 0.4 % . [facility] Erythrocyte distribution wid th Auto (RBC) [Ratio]Ordered By: Carri Manuel on 06-30-2023 Erythrocyte distribution width (RBC) [Ratio] 13.3 % 11.9-15.3 [facility] Glucose [Mass/volume] in Ser um or PlasmaOrdered By: Carri Manuel on 06-30-2023 Glucose [Mass/Vol] 134 mg/dL 70-100 [facility] Comment on above: ADA recommended refe rence rangeRandom Glucose Reference Range is dependent on time and content of last meal. Glucose of more than 200 mg/dL in a nonstressed, ambulatory subject supports the diagnosis of Diabetes Mellitus. Hematocrit Auto (Bld) [Volum e fraction]Ordered By: Carri Manuel on 06-30-2023 Hematocrit (Bld) [Volume fraction] 38.9 % 34.0-46.4 [facility] Hemoglobin [Mass/volume] in BloodOrdered By: Carri Manuel on 06-30-2023 Hemoglobin (Bld) [Mass/Vol] 13.0 g/dL 11.8-15.4 [facility] Leukocytes [#/volume] correc cherie for nucleated erythrocytes in Blood by Automated counOrdered By: Carri Manuel on 06-30-2023 WBC corrected for nucl RBC Auto (Bld) [#/Vol] 15.4 10*3/uL 3.8-11.6 [facility] Lymphocytes Auto (Bld) [#/Vo l]Ordered By: Carri Manuel on 06-30-2023 Lymphocytes (Bld) [#/Vol] 4.3 10*3/uL 1.00-4.8 [facility] Lymphocytes/100 WBC Auto (Bl d)Ordered By: Carri Manuel on 06-30-2023 Lymphocytes/100 WBC (Bld) 27.8 % . [facility] MCH Auto (RBC) [Entitic mass ]Ordered By: Carri Manuel on 06-30-2023 MCH (RBC) [Entitic mass] 30.0 pg 24.7-34.3 [facility] MCHC Auto (RBC) [Mass/Vol]Or dered By: Carri Manuel on 06-30-2023 MCHC (RBC) [Mass/Vol] 33.5 g/dL 32.0-35.0 [facility] MCV Auto (RBC) [Entitic vol] Ordered By: Carri Manuel on 06-30-2023 MCV (RBC) [Entitic vol] 89.6 fL 80-100 [facility] Monocytes Auto (Bld) [#/Vol] Ordered By: Carri Manuel on 06-30-2023 Monocytes (Bld) [#/Vol] 1.2 10*3/uL 0.0-0.8 [facility] Monocytes/100 WBC Auto (Bld) Ordered By: Carri Manuel on 06-30-2023 Monocytes/100 WBC (Bld) 7.5 % . [facility] Neutrophils Auto (Bld) [#/Vo l]Ordered By: Carri Manuel on 06-30-2023 Neutrophils (Bld) [#/Vol] 9.8 10*3/uL 1.8-7.7 [facility] Neutrophils/100 WBC Auto (Bl d)Ordered By: Carri Manuel on 06-30-2023 Neutrophils/100 WBC (Bld) 63.6 % . [facility] No Panel InformationOrdered By: Carri Manuel on 06-30-2023 Estimated GFR (CKD-EPI) > 60.0 mL/Min [facility] Creatinine Clearance (Chem N/A [facility] Nucleated erythrocytes [Pres ence] in Blood by Automated countOrdered By: Carri Manuel on 06-30-2023 Nucleated RBC Auto Ql (Bld) 0.0 /100{WBC} 0-0.5 [facility] PST Type and Screenon 2022 ABO and Rh group Nom (Bld) Blood group A Rh(D) positive Normal [facility] Comment on above: Order Comment: Date of Surgery: [id number] Result Comment: PERF ORMED BY: [facility] [address] [place] [address] PATHOLOGIST [employer] RIDGE HUERTA M.D. Platelet mean volume Auto (B ld) [Entitic vol]Ordered By: Carri Manuel on 06-30-2023 Platelet mean volume (Bld) [Entitic vol] 7.9 fL 6.3-10.7 [facility] Platelets Auto (Bld) [#/Vol] Ordered By: Carri Manuel on 06-30-2023 Platelets (Bld) [#/Vol] 275 10*3/uL 150-450 [facility] Potassium [Moles/volume] in Serum or PlasmaOrdered By: Carri Manuel on 06-30-2023 Potassium [Moles/Vol] 4.3 mmol/L 3.5-5.1 [facility] RBC Auto (Bld) [#/Vol]Ordere d By: Carri Manuel on 06-30-2023 RBC (Bld) [#/Vol] 4.34 10*6/uL 3.60-5.00 [facility] Serum or plasma anion gap de terminationOrdered By: Carri Manuel on 06-30-2023 Anion gap [Moles/Vol] 14.6 mmol/L 6.0-15.0 [facility] Sodium [Moles/volume] in Ser um or PlasmaOrdered By: Carri Manuel on 06-30-2023 Sodium [Moles/Vol] 137 mmol/L 136-145 [facility] Urea nitrogen [Mass/volume] in Serum or PlasmaOrdered By: Carri Manuel on 06-30-2023 Urea nitrogen [Mass/Vol] 11 mg/dL 7-25 [facility] WBC Auto (Bld) [#/Vol]Ordere d By: Carri Manuel on 06-30-2023 WBC (Bld) [#/Vol] 15.4 10*3/uL 3.8-11.6 [facility] HCG ( test) IA.rapi d Ql (U)Ordered By: Kyler Miramontes on 05-05-2023 HCG ( test) Ql (U) Negative [facility] HCG,Urineon 05-05-2023 Beta HCG ( test) Ql (U) Negative Normal [facility] Comment on above: Result Comment: PERF ORMED BY: [facility] Michelle PARADA [place] [address] PATHOLOGIST [employer] RIDGE HUERTA M.D. Performed By: #### G LULS #### Point of Care testing , Alanine aminotransferase [En zymatic activity/volume] in Serum or PlasmaOrdered By: Ajit Pettit on 05-04-2023 ALT [Catalytic activity/Vol] 17 U/L 7-52 [facility] Albumin [Mass/volume] in Ser um or Plasma by Bromocresol green (BCG) dye binding methoOrdered By: Ajit Millanc on 05-04-2023 Albumin BCG dye [Mass/Vol] 4.4 g/dL 3.5-5.7 [facility] Alkaline phosphatase [Enzyma tic activity/volume] in Serum or PlasmaOrdered By: Ajit Pettit on 05-04-2023 ALP [Catalytic activity/Vol] 55 U/L 34-104 [facility] Aspartate aminotransferase [ Enzymatic activity/volume] in Serum or PlasmaOrdered By: Ajit Pettit on 05-04-2023 AST [Catalytic activity/Vol] 18 U/L 13-39 [facility] Basophils Auto (Bld) [#/Vol] Ordered By: Ajit Pettit on 05-04-2023 Basophils (Bld) [#/Vol] 0.1 10*3/uL 0.0-0.2 [facility] Basophils/100 WBC Auto (Bld) Ordered By: Ajit Pettit on 05-04-2023 Basophils/100 WBC (Bld) 0.9 % . [facility] Bilirubin.total [Mass/volume ] in Serum or PlasmaOrdered By: Ajit Pettit on 05-04-2023 Bilirubin [Mass/Vol] 0.3 mg/dL 0.3-1.0 [facility] Calcium [Mass/volume] in Ser um or PlasmaOrdered By: Ajit Pettit on 05-04-2023 Calcium [Mass/Vol] 9.6 mg/dL 8.6-10.3 [facility] Carbon dioxide, total [Moles /volume] in Serum or PlasmaOrdered By: Ajit Pettit on 05-04-2023 CO2 [Moles/Vol] 28.5 mmol/L 21.0-31.0 [facility] Chloride [Moles/volume] in S alissa or PlasmaOrdered By: Ajit Pettit on 05-04-2023 Chloride [Moles/Vol] 100 mmol/L 98-107 [facility] Cholesterol [Mass/volume] in Serum or PlasmaOrdered By: Ajit Pettit on 05-04-2023 Cholesterol [Mass/Vol] 180 mg/dL 140-200 [facility] Comment on above: Chol less than 200 m g/dl low riskChol 201-239 mg/dl borderline riskChol 240 mg/dl and greater high risk Cholesterol in LDL Calc [Mas s/Vol]Ordered By: Ajit Pettit on 05-04-2023 Cholesterol in LDL [Mass/Vol] 81 mg/dL 0-100 [facility] Comment on above: LDL ATP III CLASSIFI CATIONLDL less than 100 mg/dL OptimalLDL 100-129 mg/dL Near or above optimalLDL 130-159 mg/dL Borderline highLDL 160-189 mg/dL HighLDL greater than 189 mg/dL Very high Cholesterol in VLDL Calc [Ma ss/Vol]Ordered By: Ajit Pettit on 05-04-2023 Cholesterol in VLDL [Mass/Vol] 46 mg/dL [facility] Complete Blood Count Auto Di ffon 05-04-2023 Basophils (Bld) [#/Vol] 0.1 10*3/uL Normal 0.0-0.2 [facility] Comment on above: Result Comment: PERF ORMED BY: [place] [address] PATHOLOGIST [employer] RIDGE HUERTA M.D. Performed By: #### C MP #### [facility] [address] [place] [address] [place] Basophils/100 WBC (Bld) 0.9 % Normal . [facility] Comment on above: Performed By: #### C MP #### [facility] [address] [place] [address] [place] Eosinophils (Bld) [#/Vol] 0.1 10*3/uL Normal 0.0-0.45 [facility] Comment on above: Performed By: #### C MP #### [facility] [address] [place] [address] [place] Eosinophils/100 WBC (Bld) 0.5 % Normal . [facility] Comment on above: Performed By: #### C MP #### [facility] [address] Erythrocyte distribution width (RBC) [Ratio] 13.4 % Normal 11.9-15.3 [facility] Comment on above: Performed By: #### C MP #### [facility] [address] Hematocrit (Bld) [Volume fraction] 41.7 % Normal 34.0-46.4 [facility] Comment on above: Performed By: #### C MP #### [facility] [address] Hemoglobin (Bld) [Mass/Vol] 14.0 g/dL Normal 11.8-15.4 [facility] Comment on above: Performed By: #### C MP #### [address] Lymphocytes (Bld) [#/Vol] 3.2 10*3/uL Normal 1.00-4.8 [facility] Comment on above: Performed By: #### C MP #### [place] [address] [place] Lymphocytes/100 WBC (Bld) 22.3 % Normal . [facility] Comment on above: Performed By: #### C MP #### [address] MCH (RBC) [Entitic mass] 29.8 pg Normal 24.7-34.3 [facility] Comment on above: Performed By: #### C MP #### [address] MCV (RBC) [Entitic vol] 89.1 fL Normal 80-100 [facility] Comment on above: Performed By: #### C MP #### [address] Mean Corpuscular HGB Conc 33.5 g/dL Normal 32.0-35.0 [facility] Comment on above: Performed By: #### C MP #### [facility] [address] Monocytes (Bld) [#/Vol] 0.9 10*3/uL High 0.0-0.8 [facility] Comment on above: Performed By: #### C MP #### [address] Monocytes/100 WBC (Bld) 6.3 % Normal . [facility] Comment on above: Performed By: #### C MP #### [address] Neutrophils (Bld) [#/Vol] 10.1 10*3/uL High 1.8-7.7 [facility] Comment on above: Performed By: #### C MP #### [address] Neutrophils/100 WBC (Bld) 70.0 % Normal . [facility] Comment on above: Performed By: #### C MP #### [address] NRBC% 0.1 /100{WBC} Normal 0-0.5 [facility] Comment on above: Performed By: #### C MP #### [address] Platelet mean volume (Bld) [Entitic vol] 8.4 fL Normal 6.3-10.7 [facility] Comment on above: Performed By: #### C MP #### [place] [address] [place] Platelets (Bld) [#/Vol] 328 10*3/uL Normal 150-450 [facility] Comment on above: Performed By: #### C MP #### [place] [address] [place] RBC (Bld) [#/Vol] 4.68 10*6/uL Normal 3.60-5.00 [facility] Comment on above: Performed By: #### C MP #### [place] [address] [place] WBC (Bld) [#/Vol] 14.4 10*3/uL High 3.8-11.6 [facility] Comment on above: Performed By: #### C MP #### [address] Comprehensive Metabolic Pane rosa 05-04-2023 Albumin [Mass/Vol] 4.4 g/dL Normal 3.5-5.7 [facility] Comment on above: Performed By: #### C MP #### [address] Albumin/Globulin [Mass ratio] 1.9 {ratio} Normal [facility] Comment on above: Performed By: #### C MP #### [address] ALP [Catalytic activity/Vol] 55 U/L Normal 34-104 [facility] Comment on above: Performed By: #### C MP #### [address] ALT [Catalytic activity/Vol] 17 U/L Normal 7-52 [facility] Comment on above: Performed By: #### C MP #### [address] Anion gap [Moles/Vol] 11.8 mmol/L Normal 6.0-15.0 [facility] Comment on above: Performed By: #### C MP #### [address] AST [Catalytic activity/Vol] 18 U/L Normal 13-39 [facility] Comment on above: Performed By: #### C MP #### [address] Bilirubin [Mass/Vol] 0.3 mg/dL Normal 0.3-1.0 [facility] Comment on above: Performed By: #### C MP #### [address] Calcium [Mass/Vol] 9.6 mg/dL Normal 8.6-10.3 [facility] Comment on above: Performed By: #### C MP #### [facility] [address] Chloride [Moles/Vol] 100 mmol/L Normal 98-107 [facility] Comment on above: Performed By: #### C MP #### [facility] [address] CO2 [Moles/Vol] 28.5 mmol/L Normal 21.0-31.0 [facility] Comment on above: Performed By: #### C MP #### [facility] [address] Creatinine [Mass/Vol] 0.65 mg/dL Normal 0.60-1.20 [facility] Comment on above: Performed By: #### C MP #### [address] GFR/1.73 sq M.predicted MDRD (S/P/Bld) [Vol rate/Area] mL/min/{1.73_m2} Normal [facility] Comment on above: Performed By: #### C MP #### [facility] [address] Globulin (S) [Mass/Vol] 2.3 g/dL Normal [facility] Comment on above: Performed By: #### C MP #### [address] Glucose [Mass/Vol] 124 mg/dL High 70-100 [facility] Comment on above: Result Comment: [facility] Glucose Reference Range is dependent on time and content of last meal. Glucose of more than 200 mg/dL in a nonstressed, ambulatory subject supports the diagnosis of Diabetes Mellitus. ADA recommended reference range Performed By: #### C MP #### [facility] [address] Potassium [Moles/Vol] 5.3 mmol/L High 3.5-5.1 [facility] Comment on above: Performed By: #### C MP #### [address] Protein [Mass/Vol] 6.7 g/dL Normal 6.4-8.9 [facility] Comment on above: Performed By: #### C MP #### [facility] [address] Sodium [Moles/Vol] 135 mmol/L Low 136-145 [facility] Comment on above: Performed By: #### C MP #### [facility] [address] Urea nitrogen [Mass/Vol] 9 mg/dL Normal 7-25 [facility] Comment on above: Performed By: #### C MP #### [address] Creatinine [Mass/volume] in Serum or PlasmaOrdered By: Ajit Pettit on 05-04-2023 Creatinine [Mass/Vol] 0.65 mg/dL 0.60-1.20 [facility] Eosinophils Auto (Bld) [#/Vo l]Ordered By: Ajit Pettit on 05-04-2023 Eosinophils (Bld) [#/Vol] 0.1 10*3/uL 0.0-0.45 [facility] Eosinophils/100 WBC Auto (Bl d)Ordered By: Ajit Pettit on 05-04-2023 Eosinophils/100 WBC (Bld) 0.5 % . [facility] Erythrocyte distribution wid th Auto (RBC) [Ratio]Ordered By: Ajit Pettit on 05-04-2023 Erythrocyte distribution width (RBC) [Ratio] 13.4 % 11.9-15.3 [facility] FE PROon 05-04-2023 % Iron Saturation 20.0 % Normal 20-50 [facility] Comment on above: Performed By: #### C MP #### [facility] [address] Ferritin [Mass/Vol] 90.4 ng/mL Normal 11.0-306.8 [facility] Comment on above: Performed By: #### C MP #### [facility] [address] Iron [Mass/Vol] 95 ug/dL Normal 50-212 [facility] Comment on above: Performed By: #### C MP #### [facility] [address] [place] [id number] [facility] Total Iron Binding Capacity 476 ug/dL High 255-450 [facility] Comment on above: Performed By: #### C MP #### [facility] [address] [place] [address] [place] Transferrin [Mass/Vol] 340 mg/dL Normal 203-362 [facility] Comment on above: Performed By: #### C MP #### [facility] [address] [place] [address] [place] Ferritin [Mass/volume] in Se rum or PlasmaOrdered By: Ajti Pettit on 05-04-2023 Ferritin [Mass/Vol] 90.4 ng/mL 11.0-306.8 [facility] Globulin Calc (S) [Mass/Vol] Ordered By: Ajit Pettit on 05-04-2023 Globulin (S) [Mass/Vol] 2.3 g/dL [facility] Glucose [Mass/volume] in Ser um or PlasmaOrdered By: Ajit Pettit on 05-04-2023 Glucose [Mass/Vol] 124 mg/dL 70-100 [facility] Comment on above: ADA recommended refe rence rangeRandom Glucose Reference Range is dependent on time and content of last meal. Glucose of more than 200 mg/dL in a nonstressed, ambulatory subject supports the diagnosis of Diabetes Mellitus. Hematocrit Auto (Bld) [Volum e fraction]Ordered By: Ajit Pettit on 05-04-2023 Hematocrit (Bld) [Volume fraction] 41.7 % 34.0-46.4 [facility] Hemoglobin [Mass/volume] in BloodOrdered By: Ajit Pettit on 05-04-2023 Hemoglobin (Bld) [Mass/Vol] 14.0 g/dL 11.8-15.4 [facility] Iron [Mass/volume] in Serum or PlasmaOrdered By: Ajit Pettit on 05-04-2023 Iron [Mass/Vol] 95 ug/dL 50-212 [facility] Iron binding capacity [Mass/ volume] in Serum or PlasmaOrdered By: Ajit Pettit on 05-04-2023 Iron binding capacity [Mass/Vol] 476 ug/dL 255-450 [facility] Iron saturation [Mass Fracti on] in Serum or PlasmaOrdered By: Ajit Pettit on 05-04-2023 Iron saturation [Mass fraction] 20.0 % 20-50 [facility] Leukocytes [#/volume] correc cherie for nucleated erythrocytes in Blood by Automated counOrdered By: Ajit Pettit on 05-04-2023 WBC corrected for nucl RBC Auto (Bld) [#/Vol] 14.4 10*3/uL 3.8-11.6 [facility] Lipid Panelon 05-04-2023 Cholesterol [Mass/Vol] 180 mg/dL Normal 140-200 [facility] Comment on above: Result Comment: Chol less than 200 mg/dl low risk Chol 201-239 mg/dl borderline risk Chol 240 mg/dl and greater high risk Performed By: #### C MP #### [facility] [address] [place] [address] [place] Cholesterol in HDL [Mass/Vol] 52 mg/dL Normal 23-92 [facility] Comment on above: Result Comment: HDL CHOL ATP-III CLASSIFICATION Cardiovascular Risk HDL > or equal to 60 mg/dL LOW HDL < 40 mg/dL HIGH Performed By: #### C MP #### [facility] [address] [place] [id number] [place] Cholesterol.total/Suellen sterol in HDL [Mass ratio] 3.5 {ratio} Normal <5.0 [facility] Comment on above: Performed By: #### C MP #### [facility] [address] [place] [address] [place] LDL Cholesterol,Calculated 81 mg/dL Normal 0-100 [facility] Comment on above: Result Comment: LDL ATP III CLASSIFICATION LDL less than 100 mg/dL Optimal LDL 100-129 mg/dL Near or above optimal LDL 130-159 mg/dL Borderline high LDL 160-189 mg/dL High LDL greater than 189 mg/dL Very high Performed By: #### C MP #### [facility] [address] Triglyceride w/Reflex 233 mg/dL High 0-149 [facility] Comment on above: Result Comment: TRIG ATP III CLASSIFICATION TRIG less than 150 mg/dL Normal TRIG 150-199 mg/dL Borderline high TRIG 200-500 mg/dL High TRIG greater than 500 mg/dL Very high Standard traceable to the Center for Disease Conrtrol and Prevention (CDC) test method. Performed By: #### C MP #### [facility] [address] VLDL CHOLESTEROL 46 mg/dL Normal [facility] Comment on above: Performed By: #### C MP #### [facility] [address] Lymphocytes Auto (Bld) [#/Vo l]Ordered By: Ajit Pettit on 05-04-2023 Lymphocytes (Bld) [#/Vol] 3.2 10*3/uL 1.00-4.8 [facility] Lymphocytes/100 WBC Auto (Bl d)Ordered By: Ajit Pettit on 05-04-2023 Lymphocytes/100 WBC (Bld) 22.3 % . [facility] MCH Auto (RBC) [Entitic mass ]Ordered By: Ajit Pettit on 05-04-2023 MCH (RBC) [Entitic mass] 29.8 pg 24.7-34.3 [facility] MCHC Auto (RBC) [Mass/Vol]Or dered By: Ajit Pettit on 05-04-2023 MCHC (RBC) [Mass/Vol] 33.5 g/dL 32.0-35.0 [facility] MCV Auto (RBC) [Entitic vol] Ordered By: Ajit Pettit on 05-04-2023 MCV (RBC) [Entitic vol] 89.1 fL 80-100 [facility] Monocytes Auto (Bld) [#/Vol] Ordered By: Ajit Pettit on 05-04-2023 Monocytes (Bld) [#/Vol] 0.9 10*3/uL 0.0-0.8 [facility] Monocytes/100 WBC Auto (Bld) Ordered By: Ajit Pettit on 05-04-2023 Monocytes/100 WBC (Bld) 6.3 % . [facility] Neutrophils Auto (Bld) [#/Vo l]Ordered By: Ajit Pettit on 05-04-2023 Neutrophils (Bld) [#/Vol] 10.1 10*3/uL 1.8-7.7 [facility] Neutrophils/100 WBC Auto (Bl d)Ordered By: Ajit Pettit on 05-04-2023 Neutrophils/100 WBC (Bld) 70.0 % . [facility] No Panel InformationOrdered By: Ajit Pettit on 05-04-2023 Estimated GFR (CKD-EPI) > 60.0 mL/Min [facility] Creatinine Clearance (Chem N/A [facility] Nucleated erythrocytes [Pres ence] in Blood by Automated countOrdered By: Ajit Pettit on 05-04-2023 Nucleated RBC Auto Ql (Bld) 0.1 /100{WBC} 0-0.5 [facility] Platelet mean volume Auto (B ld) [Entitic vol]Ordered By: Ajit Pettit on 05-04-2023 Platelet mean volume (Bld) [Entitic vol] 8.4 fL 6.3-10.7 [facility] Platelets Auto (Bld) [#/Vol] Ordered By: Ajit Pettit on 05-04-2023 Platelets (Bld) [#/Vol] 328 10*3/uL 150-450 [facility] Potassium [Moles/volume] in Serum or PlasmaOrdered By: Ajit Pettit on 05-04-2023 Potassium [Moles/Vol] 5.3 mmol/L 3.5-5.1 [facility] Protein [Mass/volume] in Ser um or PlasmaOrdered By: Ajit Pettit on 05-04-2023 Protein [Mass/Vol] 6.7 g/dL 6.4-8.9 [facility] RBC Auto (Bld) [#/Vol]Ordere d By: Ajit Pettit on 05-04-2023 RBC (Bld) [#/Vol] 4.68 10*6/uL 3.60-5.00 [facility] Serum or plasma albumin/glob ulin mass ratioOrdered By: Ajit Pettit on 05-04-2023 Albumin/Globulin [Mass ratio] 1.9 {ratio} [facility] Serum or plasma anion gap de terminationOrdered By: Ajit Pettit on 05-04-2023 Anion gap [Moles/Vol] 11.8 mmol/L 6.0-15.0 [facility] Serum or plasma high density lipoprotein (HDL) cholesterol measurementOrdered By: Ajit Pettit on 05-04-2023 Cholesterol in HDL [Mass/Vol] 52 mg/dL 23-92 [facility] Comment on above: HDL CHOL ATP-III CLA SSIFICATION Cardiovascular RiskHDL > or equal to 60 mg/dL LOWHDL < 40 mg/dL HIGH Serum or plasma total choles terol/high density lipoprotein (HDL) cholesterol mass ratOrdered By: Ajit Pettit on 05-04-2023 Cholesterol.total/Suellen sterol in HDL [Mass ratio] 3.5 {ratio} <5.0 [facility] Sodium [Moles/volume] in Ser um or PlasmaOrdered By: Ajit Pettit on 05-04-2023 Sodium [Moles/Vol] 135 mmol/L 136-145 [facility] Thyroid Stim Hormone w/Rflxo n 05-04-2023 Thyroid Stim Hormone w/Rflx 1.97 u[iU]/mL Normal 0.45-5.33 [facility] Comment on above: Result Comment: PERF ORMED BY: [place] [address] PATHOLOGIST [employer] RIDGE HUERTA M.D. Performed By: #### C #### [address] Thyrotropin [Units/volume] i n Serum or PlasmaOrdered By: Ajit Pettit on 05-04-2023 TSH Qn 1.97 m[IU]/L 0.45-5.33 [facility] Transferrin [Mass/volume] in Serum or PlasmaOrdered By: Ajit Pettit on 05-04-2023 Transferrin [Mass/Vol] 340 mg/dL 203-362 [facility] Triglyceride [Mass/volume] i n Serum or PlasmaOrdered By: Ajit Pettit on 05-04-2023 Triglyceride [Mass/Vol] 233 mg/dL 0-149 [facility] Comment on above: TRIG ATP III CLASSIF ICATIONTRIG less than 150 mg/dL NormalTRIG 150-199 mg/dL Borderline highTRIG 200-500 mg/dL High TRIG greater than 500 mg/dL Very highStandard traceable to the Center for Disease Conrtrol and Prevention (CDC) test method. Urea nitrogen [Mass/volume] in Serum or PlasmaOrdered By: Ajit Pettit on 05-04-2023 Urea nitrogen [Mass/Vol] 9 mg/dL 7- [facility] Urine Cultureon 05-04-2023 Bacteria identified Cx Nom (U) ORGANISM: Strep. agalactiae Grp B (O:B) Sabinal Count <10,000 PERFORMED BY: [place] [address] PATHOLOGIST [employer] RIDGE HUERTA M.D. Normal [facility] Comment on above: Performed By: #### G LULS #### Point of Care testing , Urine culture routineOrdered By: Ajit Pettit on 05-04-2023 Bacteria identified Cx Nom (U) Strep. agalactiae Grp B [facility] WBC Auto (Bld) [#/Vol]Ordere d By: Ajit Pettit on 05-04-2023 WBC (Bld) [#/Vol] 14.4 10*3/uL 3.8-11.6 [facility] XR thoracic spine 3V*on 04-04 XR thoracic spine 3V* [facility] Main [address] [address] XRay Report Signed Patient: Rachel Mcgarry MR#: [id number] 1 : 1980 Acct:[id number] Age/Sex: 43 / F ADM Date: 04/26/23 Loc: [place] Room: Type: [facility] Attending Dr: Kyler Miramontes MD Copies [...] PROCESS. Impression dictated by: Andrés Yeboah Jr., DGrace04/26/2023 1:04 PM Dictation Location: [place] [address] Transcribed By: [facility] 04/26/23 1304 Dictated By: Andrés Yeboah Jr DO 04/26/23 1303 Signed By: 04/26/23 1304 Normal [facility] HCG ( test) IA.rapi d Ql (U)Ordered By: Kyler Miramontes on 04-14-2023 HCG ( test) Ql (U) Negative [facility] HCG,Urineon 04-14-2023 Beta HCG ( test) Ql (U) Negative [facility] Comment on above: Result Comment: PERF ORMED BY: [facility] [address] [place] [address] PATHOLOGIST [employer] RIDGE HUERTA M.D. Performed By: #### U HCG ####[facility] [address] [place] [id number] [facility] CBC AUTO DIFFon 02-15-2023 BASO # 0.1 103/ul Normal 0.0-0.1 [facility] Comment on above: Performed By: #### C BC #### [facility] [address] [place] [address] Dr. Vito Grimm Basophils/100 WBC (Bld) 0.5 % Normal 0.2-2.0 [facility] Comment on above: Performed By: #### C BC #### [facility] [address] [place] [address] Dr. Vito Grimm EO # 0.1 103/ul Normal 0.0-0.7 [facility] Comment on above: Performed By: #### C BC #### [facility] [address] [place] [address] Dr. Vito Grimm Eosinophils/100 WBC (Bld) 0.8 % Critically low 0.9-7.0 [facility] Comment on above: Performed By: #### C BC #### [facility] [address] [place] [address] Dr. Vito Grimm Erythrocyte distribution width (RBC) [Ratio] 13.1 % Normal 11.0-15.0 [facility] Comment on above: Performed By: #### C BC #### [facility] [address] [place] [address] Dr. Vito Grimm Hematocrit (Bld) [Volume fraction] 41.2 % Normal 36.0-48.0 [facility] Comment on above: Performed By: #### C BC #### [facility] [address] [place] [address] Dr. Vito Grimm Hemoglobin (Bld) [Mass/Vol] 13.4 g/dL Normal 12.0-16.0 [facility] Comment on above: Performed By: #### C BC #### [facility] [address] [place] [address] Dr. Vito Grimm IG # 0.05 10e3/ul Critically high 0.00-0.03 [facility] Comment on above: Performed By: #### C BC #### [facility] [address] [place] [address] Dr. Vito Grimm IG % 0.4 % Normal 0.0-0.5 [facility] Comment on above: Performed By: #### C BC #### [facility] [address] [place] [address] Dr. Vito Grimm LYMPH # 4.8 103/ul Critically high 1.2-3.8 [facility] Comment on above: Performed By: #### C BC #### [facility] [address] [place] [address] Dr. Vito Grimm Lymphocytes/100 WBC (Bld) 38.8 % Normal 20.5-60.0 [facility] Comment on above: Performed By: #### C BC #### [facility] [address] [place] [address] Dr. Vito Grimm MANUAL DIFF REQ NO Normal [facility] Comment on above: Performed By: #### C BC #### [facility] [address] [place] [address] Dr. Vito Grimm MCH (RBC) [Entitic mass] 29.9 pg Normal 26.7-34.0 [facility] Comment on above: Performed By: #### C BC #### [facility] [address] [place] [address] Dr. Vito Grimm MCHC (RBC) [Mass/Vol] 32.5 g/dL Normal 29.9-35.2 [facility] Comment on above: Performed By: #### C BC #### [facility] [address] [place] [address] Dr. Vito Grimm MCV (RBC) [Entitic vol] 92.0 fL Normal 81.0-99.0 [facility] Comment on above: Performed By: #### C BC #### [facility] [address] [place] [address] Dr. Vito Grimm MONO # 0.9 103/ul Critically high 0.3-0.8 [facility] Comment on above: Performed By: #### C BC #### [facility] [address] [place] [address] Dr. Vito Grimm Monocytes/100 WBC (Bld) 7.4 % Normal 1.7-12.0 [facility] Comment on above: Performed By: #### C BC #### [facility] [address] [place] [address] Dr. Vito Grimm NEUT # 6.5 103/ul Normal 1.4-6.5 [facility] Comment on above: Performed By: #### C BC #### [facility] [address] [place] [address] Dr. Vito Grimm Neutrophils/100 WBC (Bld) 52.1 % Normal 43.0-75.0 [facility] Comment on above: Performed By: #### C BC #### [facility] [address] [place] [address] Dr. Vito Grimm Platelet mean volume (Bld) [Entitic vol] 10.0 fL Normal 9.5-13.5 [facility] Comment on above: Performed By: #### C BC #### [facility] [address] [place] [address] Dr. Vito Grimm PLT 298 103/ul Normal 150-450 [facility] Comment on above: Performed By: #### C BC #### [facility] [address] [place] [address] Dr. Vito Grimm RBC 4.48 106/ul Normal 4.20-5.40 [facility] Comment on above: Performed By: #### C BC #### [facility] [address] [place] [address] Dr. Vito Grimm WBC 12.4 103/ul Critically high 4.0-11.0 [facility] Comment on above: Performed By: #### C BC #### [facility] [address] [place] [address] Dr. Vito Grimm DEPAKENE/ VALPROIC ACIDon DEPAKENE 49.4 ug/ml Critically low 50.0-100.0 [facility] Comment on above: Performed By: #### C MATHIEU, HSTROPN #### [facility] [address] [place] [address] Dr. Vito Grimm LACTATE/LACTIC ACIDon 2022 Lactate [Moles/Vol] 2.7 mmol/L Critically high 0.4-2.0 [facility] Comment on above: Performed By: #### L ACT #### [facility] [address] [place] [address] Dr. Vito Grimm PROF CHEM 8 (BAS METB)on Anion gap [Moles/Vol] 17.6 mmol/L Normal Th [facility] Comment on above: Performed By: #### B MP #### [facility] [address] [place] [address] Dr. Vito Grimm Calcium [Mass/Vol] 8.7 mg/dL Normal 8.5-10.1 [facility] Comment on above: Performed By: #### B MP #### [facility] [address] [address] [address] Vito Grimm Chloride [Moles/Vol] 99 mmol/L Normal 98-107 [facility] Comment on above: Performed By: #### B MP #### [facility] [address] [address] [address] Vito Grimm CO2 [Moles/Vol] 23.5 mmol/L Normal 21.0-32.0 [facility] Comment on above: Performed By: #### B MP #### [facility] [address] [address] [address] Vito Grimm Creatinine [Mass/Vol] 0.75 mg/dL Normal 0.55-1.02 [facility] Comment on above: Performed By: #### B MP #### [facility] [address] [place] [address] Dr. Vito Grimm EGFR-AF CITIZEN OF [place] >60 Normal >=60 [facility] Comment on above: Performed By: #### B MP #### [facility] [address] [place] [address] Dr. Vito Grimm EGFR-NON AF CITIZEN OF [place] >60 Normal >=60 [facility] Comment on above: Performed By: #### B MP #### [facility] [address] [address] [address] Vito Grimm Glucose [Mass/Vol] 273 mg/dL Critically high 74-106 T [facility] Comment on above: Performed By: #### B MP #### [facility] [address] [place] [address] Dr. Vito Grimm Potassium [Moles/Vol] 4.1 mmol/L Normal 3.5-5.1 [facility] Comment on above: Performed By: #### B MP #### [facility] [address] [place] [address] Dr. Vito Grimm Sodium [Moles/Vol] 136 mmol/L Normal 136-145 [facility] Comment on above: Performed By: #### B MP #### [facility] [address] [place] [address] Dr. Vito Grimm Urea nitrogen [Mass/Vol] 6.0 mg/dL Critically low 7.0-18.0 [facility] Comment on above: Performed By: #### B MP #### [facility] [address] [address] [address] Vito Grimm Urea nitrogen/Creatinine [Mass ratio] 8.0 mg/mg Normal [facility] Comment on above: Performed By: #### B MP #### [facility] [address] [address] [address] Vito Grimm Alanine aminotransferase [En zymatic activity/volume] in Serum or PlasmaOrdered By: Ajit Pettit on 02-09-2023 ALT [Catalytic activity/Vol] 29 U/L 7-52 [facility] Albumin [Mass/volume] in Ser um or Plasma by Bromocresol green (BCG) dye binding methoOrdered By: Ajit Pettit on 02-09-2023 Albumin BCG dye [Mass/Vol] 4.4 g/dL 3.5-5.7 [facility] Alkaline phosphatase [Enzyma tic activity/volume] in Serum or PlasmaOrdered By: Ajit Millanc on 02-09-2023 ALP [Catalytic activity/Vol] 72 U/L 34-104 [facility] Aspartate aminotransferase [ Enzymatic activity/volume] in Serum or PlasmaOrdered By: Ajit Millanc on 02-09-2023 AST [Catalytic activity/Vol] 27 U/L 13-39 [facility] Basophils Auto (Bld) [#/Vol] Ordered By: Ajit Pettit on 02-09-2023 Basophils (Bld) [#/Vol] 0.1 10*3/uL 0.0-0.2 [facility] Basophils/100 WBC Auto (Bld) Ordered By: Ajit Millanc on 02-09-2023 Basophils/100 WBC (Bld) 0.6 % . [facility] Bilirubin.total [Mass/volume ] in Serum or PlasmaOrdered By: Ajit Millanc on 02-09-2023 Bilirubin [Mass/Vol] 0.3 mg/dL 0.3-1.0 [facility] Calcium [Mass/volume] in Ser um or PlasmaOrdered By: Ajit Pettit on 02-09-2023 Calcium [Mass/Vol] 9.3 mg/dL 8.6-10.3 [facility] Carbon dioxide, total [Moles /volume] in Serum or PlasmaOrdered By: Ajit Pettit on 02-09-2023 CO2 [Moles/Vol] 23.8 mmol/L 21.0-31.0 [facility] Chloride [Moles/volume] in S alissa or PlasmaOrdered By: Ajit Pettit on 02-09-2023 Chloride [Moles/Vol] 101 mmol/L 98-107 [facility] Cholesterol [Mass/volume] in Serum or PlasmaOrdered By: Ajit Pettit on 02-09-2023 Cholesterol [Mass/Vol] 166 mg/dL 140-200 [facility] Comment on above: Chol less than 200 m g/dl low riskChol 201-239 mg/dl borderline riskChol 240 mg/dl and greater high risk Cholesterol in LDL Calc [Mas s/Vol]Ordered By: Ajit Pettit on 02-09-2023 Cholesterol in LDL [Mass/Vol] TNP [facility] Comment on above: Test not performed Cholesterol in LDL [Mass/vol ume] in Serum or PlasmaOrdered By: Ajit Pettit on 02-09-2023 Cholesterol in LDL [Mass/Vol] 61 mg/dL 0-100 [facility] Comment on above: LDL ATP III CLASSIFI CATIONLDL less than 100 mg/dL OptimalLDL 100-129 mg/dL Near or above optimalLDL 130-159 mg/dL Borderline highLDL 160-189 mg/dL HighLDL greater than 189 mg/dL Very high Cholesterol in VLDL Calc [Ma ss/Vol]Ordered By: Ajit Pettit on 02-09-2023 Cholesterol in VLDL [Mass/Vol] 97 mg/dL [facility] Complete Blood Count Auto Di ffon 02-09-2023 Basophils (Bld) [#/Vol] 0.1 10*3/uL Normal 0.0-0.2 [facility] Comment on above: Order Comment: Reaso n for Exam Type 2 diabetes mellitus without complication, without long- Result Comment: PERF ORMED BY: [place] [address] PATHOLOGIST [employer] RIDGE HUERTA M.D. Performed By: #### U HCG #### [place] [address] [place] Basophils/100 WBC (Bld) 0.6 % Normal . [facility] Comment on above: Order Comment: Reaso n for Exam Type 2 diabetes mellitus without complication, without long- Performed By: #### U HCG #### [address] Eosinophils (Bld) [#/Vol] 0.1 10*3/uL Normal 0.0-0.45 [facility] Comment on above: Order Comment: Reaso n for Exam Type 2 diabetes mellitus without complication, without long- Performed By: #### U HCG #### [address] Eosinophils/100 WBC (Bld) 0.7 % Normal . [facility] Comment on above: Order Comment: Reaso n for Exam Type 2 diabetes mellitus without complication, without long- Performed By: #### U HCG #### [address] Erythrocyte distribution width (RBC) [Ratio] 13.1 % Normal 11.9-15.3 [facility] Comment on above: Order Comment: Reaso n for Exam Type 2 diabetes mellitus without complication, without long- Performed By: #### U HCG #### [address] Hematocrit (Bld) [Volume fraction] 39.7 % Normal 34.0-46.4 [facility] Comment on above: Order Comment: Reaso n for Exam Type 2 diabetes mellitus without complication, without long- Performed By: #### U HCG #### [address] Hemoglobin (Bld) [Mass/Vol] 13.1 g/dL Normal 11.8-15.4 [facility] Comment on above: Order Comment: Reaso n for Exam Type 2 diabetes mellitus without complication, without long- Performed By: #### U HCG #### [address] Lymphocytes (Bld) [#/Vol] 3.6 10*3/uL Normal 1.00-4.8 [facility] Comment on above: Order Comment: Reaso n for Exam Type 2 diabetes mellitus without complication, without long- Performed By: #### U HCG #### [address] Lymphocytes/100 WBC (Bld) 27.3 % Normal . [facility] Comment on above: Order Comment: Reaso n for Exam Type 2 diabetes mellitus without complication, without long- Performed By: #### U HCG #### [address] MCH (RBC) [Entitic mass] 29.5 pg Normal 24.7-34.3 [facility] Comment on above: Order Comment: Reaso n for Exam Type 2 diabetes mellitus without complication, without long- Performed By: #### U HCG #### [address] MCV (RBC) [Entitic vol] 89.3 fL Normal 80-100 [facility] Comment on above: Order Comment: Reaso n for Exam Type 2 diabetes mellitus without complication, without long- Performed By: #### U HCG #### [address] Mean Corpuscular HGB Conc 33.1 g/dL Normal 32.0-35.0 [facility] Comment on above: Order Comment: Reaso n for Exam Type 2 diabetes mellitus without complication, without long- Performed By: #### U HCG #### [place] [address] [place] Monocytes (Bld) [#/Vol] 0.9 10*3/uL High 0.0-0.8 [facility] Comment on above: Order Comment: Reaso n for Exam Type 2 diabetes mellitus without complication, without long- Performed By: #### U HCG #### [place] [address] [place] Monocytes/100 WBC (Bld) 7.0 % Normal . [facility] Comment on above: Order Comment: Reaso n for Exam Type 2 diabetes mellitus without complication, without long- Performed By: #### U HCG #### [facility] [address] [place] [address] [place] Neutrophils (Bld) [#/Vol] 8.5 10*3/uL High 1.8-7.7 [facility] Comment on above: Order Comment: Reaso n for Exam Type 2 diabetes mellitus without complication, without long- Performed By: #### U HCG #### [facility] [address] [place] [address] Neutrophils/100 WBC (Bld) 64.4 % Normal . [facility] Comment on above: Order Comment: Reaso n for Exam Type 2 diabetes mellitus without complication, without long- Performed By: #### U HCG #### [facility] [address] [place] [address] [place] NRBC% 0.0 /100{WBC} Normal 0-0.5 [facility] Comment on above: Order Comment: Reaso n for Exam Type 2 diabetes mellitus without complication, without long- Performed By: #### U HCG #### [facility] [address] [place] [address] [place] Platelet mean volume (Bld) [Entitic vol] 8.8 fL Normal 6.3-10.7 [facility] Comment on above: Order Comment: Reaso n for Exam Type 2 diabetes mellitus without complication, without long- Performed By: #### U HCG #### [facility] [address] [place] [address] [place] Platelets (Bld) [#/Vol] 295 10*3/uL Normal 150-450 [facility] Comment on above: Order Comment: Reaso n for Exam Type 2 diabetes mellitus without complication, without long- Performed By: #### U HCG #### [facility] [address] [place] [address] [place] RBC (Bld) [#/Vol] 4.44 10*6/uL Normal 3.60-5.00 [facility] Comment on above: Order Comment: Reaso n for Exam Type 2 diabetes mellitus without complication, without long- Performed By: #### U HCG #### [facility] [address] [place] [address] WBC (Bld) [#/Vol] 13.2 10*3/uL High 3.8-11.6 [facility] Comment on above: Order Comment: Reaso n for Exam Type 2 diabetes mellitus without complication, without long- Performed By: #### U HCG #### [facility] [address] [place] [address] Comprehensive Metabolic Pane rosa 02-09-2023 Albumin [Mass/Vol] 4.4 g/dL Normal 3.5-5.7 [facility] Comment on above: Order Comment: Reaso n for Exam Type 2 diabetes mellitus without complication, without long- Performed By: #### U HCG #### [facility] [address] [place] [address] Albumin/Globulin [Mass ratio] 1.9 {ratio} Normal [facility] Comment on above: Order Comment: Reaso n for Exam Type 2 diabetes mellitus without complication, without long- Performed By: #### U HCG #### [facility] [address] [place] [address] ALP [Catalytic activity/Vol] 72 U/L Normal 34-104 [facility] Comment on above: Order Comment: Reaso n for Exam Type 2 diabetes mellitus without complication, without long- Performed By: #### U HCG #### [facility] [address] [place] [address] [place] ALT [Catalytic activity/Vol] 29 U/L Normal 7-52 [facility] Comment on above: Order Comment: Reaso n for Exam Type 2 diabetes mellitus without complication, without long- Performed By: #### U HCG #### [facility] [address] [place] [address] Anion gap [Moles/Vol] 15.7 mmol/L High 6.0-15.0 [facility] Comment on above: Order Comment: Reaso n for Exam Type 2 diabetes mellitus without complication, without long- Performed By: #### U HCG #### [address] [place] [address] [place] AST [Catalytic activity/Vol] 27 U/L Normal 13-39 [facility] Comment on above: Order Comment: Reaso n for Exam Type 2 diabetes mellitus without complication, without long- Performed By: #### U HCG #### [facility] [address] [place] [address] [place] Bilirubin [Mass/Vol] 0.3 mg/dL Normal 0.3-1.0 [facility] Comment on above: Order Comment: Reaso n for Exam Type 2 diabetes mellitus without complication, without long- Performed By: #### U HCG #### [facility] [address] [place] [address] [place] Calcium [Mass/Vol] 9.3 mg/dL Normal 8.6-10.3 [facility] Comment on above: Order Comment: Reaso n for Exam Type 2 diabetes mellitus without complication, without long- Performed By: #### U HCG #### [facility] [address] [place] [address] [place] Chloride [Moles/Vol] 101 mmol/L Normal 98-107 [facility] Comment on above: Order Comment: Reaso n for Exam Type 2 diabetes mellitus without complication, without long- Performed By: #### U HCG #### [facility] [address] [place] [address] [place] CO2 [Moles/Vol] 23.8 mmol/L Normal 21.0-31.0 [facility] Comment on above: Order Comment: Reaso n for Exam Type 2 diabetes mellitus without complication, without long- Performed By: #### U HCG #### [facility] [address] [place] [address] [place] Creatinine [Mass/Vol] 0.75 mg/dL Normal 0.60-1.20 [facility] Comment on above: Order Comment: Reaso n for Exam Type 2 diabetes mellitus without complication, without long- Performed By: #### U HCG #### [facility] [address] [place] [address] [place] GFR/1.73 sq M.predicted MDRD (S/P/Bld) [Vol rate/Area] mL/min/{1.73_m2} Normal [facility] Comment on above: Order Comment: Reaso n for Exam Type 2 diabetes mellitus without complication, without long- Performed By: #### U HCG #### [facility] [address] [place] [address] [place] Globulin (S) [Mass/Vol] 2.3 g/dL Normal F [facility] Comment on above: Order Comment: Reaso n for Exam Type 2 diabetes mellitus without complication, without long- Performed By: #### U HCG #### [facility] [address] [place] [address] [place] Glucose [Mass/Vol] 286 mg/dL High 70-100 [facility] Comment on above: Order Comment: Reaso n for Exam Type 2 diabetes mellitus without complication, without long- Result Comment: [place] Glucose Reference Range is dependent on time and content of last meal. Glucose of more than 200 mg/dL in a nonstressed, ambulatory subject supports the diagnosis of Diabetes Mellitus. ADA recommended reference range Performed By: #### U HCG #### [place] [address] [place] Potassium [Moles/Vol] 4.5 mmol/L Normal 3.5-5.1 [facility] Comment on above: Order Comment: Reaso n for Exam Type 2 diabetes mellitus without complication, without long- Performed By: #### U HCG #### [place] [address] [place] Protein [Mass/Vol] 6.7 g/dL Normal 6.4-8.9 [facility] Comment on above: Order Comment: Reaso n for Exam Type 2 diabetes mellitus without complication, without long- Performed By: #### U HCG #### [place] [address] [place] Sodium [Moles/Vol] 136 mmol/L Normal 136-145 [facility] Comment on above: Order Comment: Reaso n for Exam Type 2 diabetes mellitus without complication, without long- Performed By: #### U HCG #### [place] [address] [place] Urea nitrogen [Mass/Vol] 10 mg/dL Normal 7-25 [facility] Comment on above: Order Comment: Reaso n for Exam Type 2 diabetes mellitus without complication, without long- Performed By: #### U HCG #### [facility] [address] Creatinine [Mass/volume] in Serum or PlasmaOrdered By: Ajit Pettit on 02-09-2023 Creatinine [Mass/Vol] 0.75 mg/dL 0.60-1.20 [facility] Eosinophils Auto (Bld) [#/Vo l]Ordered By: Ajit Pettit on 02-09-2023 Eosinophils (Bld) [#/Vol] 0.1 10*3/uL 0.0-0.45 [facility] Eosinophils/100 WBC Auto (Bl d)Ordered By: Ajit Pettit on 02-09-2023 Eosinophils/100 WBC (Bld) 0.7 % . [facility] Erythrocyte distribution wid th Auto (RBC) [Ratio]Ordered By: Ajit Pettit on 02-09-2023 Erythrocyte distribution width (RBC) [Ratio] 13.1 % 11.9-15.3 [facility] Globulin Calc (S) [Mass/Vol] Ordered By: Ajit Pettit on 02-09-2023 Globulin (S) [Mass/Vol] 2.3 g/dL [facility] Glucose [Mass/volume] in Ser um or PlasmaOrdered By: Ajit Pettit on 02-09-2023 Glucose [Mass/Vol] 286 mg/dL 70-100 [facility] Comment on above: ADA recommended refe rence rangeRandom Glucose Reference Range is dependent on time and content of last meal. Glucose of more than 200 mg/dL in a nonstressed, ambulatory subject supports the diagnosis of Diabetes Mellitus. Hematocrit Auto (Bld) [Volum e fraction]Ordered By: Ajit Pettit on 02-09-2023 Hematocrit (Bld) [Volume fraction] 39.7 % 34.0-46.4 [facility] Hemoglobin [Mass/volume] in BloodOrdered By: Ajit Pettit on 02-09-2023 Hemoglobin (Bld) [Mass/Vol] 13.1 g/dL 11.8-15.4 [facility] LDL Cholesterol Measuredon 0 02-09-2023 LDL Cholesterol Measured 61 mg/dL Normal 0-100 [facility] Comment on above: Order Comment: Reaso n for Exam Type 2 diabetes mellitus without complication, without long- Result Comment: LDL ATP III CLASSIFICATION LDL less than 100 mg/dL Optimal LDL 100-129 mg/dL Near or above optimal LDL 130-159 mg/dL Borderline high LDL 160-189 mg/dL High LDL greater than 189 mg/dL Very high Performed By: #### U HCG #### [facility] [address] [id number] [place] Leukocytes [#/volume] correc cherie for nucleated erythrocytes in Blood by Automated counOrdered By: Ajit Pettit on 02-09-2023 WBC corrected for nucl RBC Auto (Bld) [#/Vol] 13.2 10*3/uL 3.8-11.6 [facility] Lipid Panelon 02-09-2023 Cholesterol [Mass/Vol] 166 mg/dL Normal 140-200 [facility] Comment on above: Order Comment: Reaso n for Exam Type 2 diabetes mellitus without complication, without long- Result Comment: Chol less than 200 mg/dl low risk Chol 201-239 mg/dl borderline risk Chol 240 mg/dl and greater high risk Performed By: #### U HCG #### [facility] [address] [id number] [place] Cholesterol in HDL [Mass/Vol] 41 mg/dL Normal 35-85 [facility] Comment on above: Order Comment: Reaso n for Exam Type 2 diabetes mellitus without complication, without long- Result Comment: HDL CHOL ATP-III CLASSIFICATION Cardiovascular Risk HDL > or equal to 60 mg/dL LOW HDL < 40 mg/dL HIGH Performed By: #### U HCG #### [facility] [address] [place] [address] [place] Cholesterol.total/[place] sterol in HDL [Mass ratio] 4.0 {ratio} Normal <5.0 [facility] Comment on above: Order Comment: Reaso n for Exam Type 2 diabetes mellitus without complication, without long- Performed By: #### U HCG #### [facility] [address] [id number] [place] LDL Cholesterol,Calculated Not performed Normal 0-100 [facility] Comment on above: Order Comment: Reaso n for Exam Type 2 diabetes mellitus without complication, without long- Performed By: #### U HCG #### [facility] [address] Triglyceride w/Reflex 485 mg/dL High 0-149 [facility] Comment on above: Order Comment: [...] resulted. Performed By: #### U HCG #### [facility] [address] VLDL CHOLESTEROL 97 mg/dL Normal [facility] Comment on above: Order Comment: Reaso n for Exam Type 2 diabetes mellitus without complication, without long- Performed By: #### U HCG #### [facility] [address] Lymphocytes Auto (Bld) [#/Vo l]Ordered By: Ajit Pettit on 02-09-2023 Lymphocytes (Bld) [#/Vol] 3.6 10*3/uL 1.00-4.8 [facility] Lymphocytes/100 WBC Auto (Bl d)Ordered By: Ajit Pettit on 02-09-2023 Lymphocytes/100 WBC (Bld) 27.3 % . [facility] MCH Auto (RBC) [Entitic mass ]Ordered By: Ajit Pettit on 02-09-2023 MCH (RBC) [Entitic mass] 29.5 pg 24.7-34.3 [facility] MCHC Auto (RBC) [Mass/Vol]Or dered By: Ajit Pettit on 02-09-2023 MCHC (RBC) [Mass/Vol] 33.1 g/dL 32.0-35.0 [facility] MCV Auto (RBC) [Entitic vol] Ordered By: Ajit Pettit on 02-09-2023 MCV (RBC) [Entitic vol] 89.3 fL 80-100 [facility] Monocytes Auto (Bld) [#/Vol] Ordered By: Ajit Pettit on 02-09-2023 Monocytes (Bld) [#/Vol] 0.9 10*3/uL 0.0-0.8 [facility] Monocytes/100 WBC Auto (Bld) Ordered By: Ajit Pettit on 02-09-2023 Monocytes/100 WBC (Bld) 7.0 % . [facility] Neutrophils Auto (Bld) [#/Vo l]Ordered By: Ajit Pettit on 02-09-2023 Neutrophils (Bld) [#/Vol] 8.5 10*3/uL 1.8-7.7 [facility] Neutrophils/100 WBC Auto (Bl d)Ordered By: Ajit Pettit on 02-09-2023 Neutrophils/100 WBC (Bld) 64.4 % . [facility] No Panel InformationOrdered By: Ajit Pettit on 02-09-2023 Estimated GFR (CKD-EPI) > 60.0 mL/Min [facility] Creatinine Clearance (Chem N/A [facility] Nucleated erythrocytes [Pres ence] in Blood by Automated countOrdered By: Ajit Pettit on 02-09-2023 Nucleated RBC Auto Ql (Bld) 0.0 /100{WBC} 0-0.5 [facility] Platelet mean volume Auto (B ld) [Entitic vol]Ordered By: Ajit Pettit on 02-09-2023 Platelet mean volume (Bld) [Entitic vol] 8.8 fL 6.3-10.7 [facility] Platelets Auto (Bld) [#/Vol] Ordered By: Ajit Pettit on 02-09-2023 Platelets (Bld) [#/Vol] 295 10*3/uL 150-450 [facility] Potassium [Moles/volume] in Serum or PlasmaOrdered By: Ajit Pettit on 02-09-2023 Potassium [Moles/Vol] 4.5 mmol/L 3.5-5.1 [facility] [facility] Protein [Mass/volume] in Ser um or PlasmaOrdered By: Ajit Pettit on 02-09-2023 Protein [Mass/Vol] 6.7 g/dL 6.4-8.9 [facility] RBC Auto (Bld) [#/Vol]Ordere d By: Ajit Pettit on 02-09-2023 RBC (Bld) [#/Vol] 4.44 10*6/uL 3.60-5.00 [facility] Serum or plasma albumin/glob ulin mass ratioOrdered By: Ajit Pettit on 02-09-2023 Albumin/Globulin [Mass ratio] 1.9 {ratio} [facility] Serum or plasma anion gap de terminationOrdered By: Ajit Pettit on 02-09-2023 Anion gap [Moles/Vol] 15.7 mmol/L 6.0-15.0 [facility] Serum or plasma high density lipoprotein (HDL) cholesterol measurementOrdered By: Ajit Pettit on 02-09-2023 Cholesterol in HDL [Mass/Vol] 41 mg/dL 35-85 [facility] Comment on above: HDL CHOL ATP-III CLA SSIFICATION Cardiovascular RiskHDL > or equal to 60 mg/dL LOWHDL < 40 mg/dL HIGH Serum or plasma total choles terol/high density lipoprotein (HDL) cholesterol mass ratOrdered By: Ajit Pettit on 02-09-2023 Cholesterol.total/Suellen sterol in HDL [Mass ratio] 4.0 {ratio} <5.0 [facility] Sodium [Moles/volume] in Ser um or PlasmaOrdered By: Ajit Pettit on 02-09-2023 Sodium [Moles/Vol] 136 mmol/L 136-145 [facility] Thyroid Stimulating Hormoneo n 02-09-2023 TSH Qn 2.98 m[IU]/L Normal 0.45-5.33 [facility] Comment on above: Order Comment: Reaso n for Exam Type 2 diabetes mellitus without complication, without long- Result Comment: PERF ORMED BY: [facility] [address] [place] [address] PATHOLOGIST [employer] RIDGE HUERTA M.D. Performed By: #### U HCG #### [facility] [address] [place] [address] Thyrotropin [Units/volume] i n Serum or PlasmaOrdered By: Ajit Pettit on 02-09-2023 TSH Qn 2.98 m[IU]/L 0.45-5.33 [facility] Triglyceride [Mass/volume] i n Serum or PlasmaOrdered By: Ajit Pettit on 02-09-2023 Triglyceride [Mass/Vol] 485 mg/dL 0-149 F [facility] Comment on above: If the triglyceride [...] on 02-09-2023 Urea nitrogen [Mass/Vol] 10 mg/dL 7- [facility] Urine Cultureon 02-09-2023 Bacteria identified Cx Nom (U) Reason for Exam Type 2 diabetes mellitus without complication, without long- Urine 75,000 colonies/ml mixed bacterial skin contaminants 2 Days PERFORMED BY: [place] [address] PATHOLOGIST [employer] RIDGE HUERTA M.D. Normal [facility] Comment on above: Performed By: #### U HCG #### [facility] [address] [place] [address] Urine culture routineOrdered By: Ajit Pettit on 02-09-2023 Bacteria identified Cx Nom (U) 2 Days [facility] WBC Auto (Bld) [#/Vol]Ordere d By: Ajit Pettit on 02-09-2023 WBC (Bld) [#/Vol] 13.2 10*3/uL 3.8-11.6 [facility] ACETONE SERUMon 01-29-2023 ACETONE Negative Normal NEGATIVE [facility] Comment on above: Performed By: #### A CETON #### [facility] [address] [address] [address] Vito Grimm CBC AUTO DIFFon 01-29-2023 BASO # 0.1 103/ul Normal 0.0-0.1 [facility] Comment on above: Performed By: #### C BC #### [facility] [address] [place] [address] Dr. Vito Grimm Basophils/100 WBC (Bld) 0.5 % Normal 0.2-2.0 [facility] Comment on above: Performed By: #### C BC #### [facility] [address] [place] [address] Dr. Vito Grimm EO # 0.1 103/ul Normal 0.0-0.7 [facility] Comment on above: Performed By: #### C BC #### [facility] [address] [place] [address] Dr. Vito Grimm Eosinophils/100 WBC (Bld) 0.7 % Critically low 0.9-7.0 [facility] Comment on above: Performed By: #### C BC #### [facility] [address] [place] [address] Dr. Vito Grimm Erythrocyte distribution width (RBC) [Ratio] 12.9 % Normal 11.0-15.0 [facility] Comment on above: Performed By: #### C BC #### [facility] [address] [place] [address] Dr. Vito Grimm Hematocrit (Bld) [Volume fraction] 39.0 % Normal 36.0-48.0 [facility] Comment on above: Performed By: #### C BC #### [facility] [address] [place] [address] Dr. Vito Grimm Hemoglobin (Bld) [Mass/Vol] 13.1 g/dL Normal 12.0-16.0 [facility] Comment on above: Performed By: #### C BC #### [facility] [address] [place] [address] Dr. Vito Grimm IG # 0.11 10e3/ul Critically high 0.00-0.03 [facility] Comment on above: Performed By: #### C BC #### [facility] [address] [place] [address] Dr. Vito Grimm IG % 0.8 % Critically high 0.0-0.5 [facility] Comment on above: Performed By: #### C BC #### [facility] [address] [place] [address] Dr. Vito Grimm LYMPH # 4.6 103/ul Critically high 1.2-3.8 [facility] Comment on above: Performed By: #### C BC #### [facility] [address] [place] [address] Dr. Vito Grimm Lymphocytes/100 WBC (Bld) 34.4 % Normal 20.5-60.0 [facility] Comment on above: Performed By: #### C BC #### [facility] [address] [place] [address] Dr. Vito Grimm MANUAL DIFF REQ NO Normal [facility] Comment on above: Performed By: #### C BC #### [facility] [address] [place] [address] Dr. Vito Grimm MCH (RBC) [Entitic mass] 29.9 pg Normal 26.7-34.0 [facility] Comment on above: Performed By: #### C BC #### [facility] [address] [place] [address] Dr. Vito Grimm MCHC (RBC) [Mass/Vol] 33.6 g/dL Normal 29.9-35.2 [facility] Comment on above: Performed By: #### C BC #### [facility] [address] [place] [address] Dr. Vito Grimm MCV (RBC) [Entitic vol] 89.0 fL Normal 81.0-99.0 T [facility] Comment on above: Performed By: #### C BC #### [facility] [address] [place] [address] Dr. Vito Grimm MONO # 1.0 103/ul Critically high 0.3-0.8 [facility] Comment on above: Performed By: #### C BC #### [facility] [address] [place] [address] Dr. Vito Grimm Monocytes/100 WBC (Bld) 7.3 % Normal 1.7-12.0 [facility] Comment on above: Performed By: #### C BC #### [facility] [address] [place] [address] Dr. Vito Grimm NEUT # 7.5 103/ul Critically high 1.4-6.5 [facility] Comment on above: Performed By: #### C BC #### [facility] [address] [place] [address] Dr. Vito Grimm Neutrophils/100 WBC (Bld) 56.3 % Normal 43.0-75.0 [facility] Comment on above: Performed By: #### C BC #### [facility] [address] [place] [address] Dr. Vito Grimm Platelet mean volume (Bld) [Entitic vol] 9.6 fL Normal 9.5-13.5 [facility] Comment on above: Performed By: #### C BC #### [facility] [address] [place] [address] Dr. Vito Grimm PLT 272 103/ul Normal 150-450 [facility] Comment on above: Performed By: #### C BC #### [facility] [address] [place] [address] Dr. Vito Grimm RBC 4.38 106/ul Normal 4.20-5.40 [facility] Comment on above: Performed By: #### C BC #### [facility] [address] [place] [address] Dr. Vito Grimm WBC 13.4 103/ul Critically high 4.0-11.0 [facility] Comment on above: Performed By: #### C BC #### [facility] [address] [place] [address] Dr. Vito Grimm ER URINE PROFILEon 3 Bilirubin Ql (U) Negative Normal NEGATIVE [facility] Comment on above: Performed By: #### E RUR #### [facility] [address] [place] [address] Dr. Vito Grimm Clarity (U) SL CLOUDY Abnormal CLEAR [facility] Comment on above: Performed By: #### E RUR #### [facility] [address] [place] [address] Dr. Vito Grimm Color (U) LT. YELLOW Normal YELLOW [facility] Comment on above: Performed By: #### E RUR #### [facility] [address] [place] [address] Dr. Vito Grimm ERUAHD A micrscopic examina tion will be performed if indicated. Normal [facility] Comment on above: Performed By: #### E RUR #### [facility] [address] [place] [address] Dr. Vito Grimm Glucose Ql (U) >1000 Abnormal NEGATIVE [facility] Comment on above: Performed By: #### E RUR #### [facility] [address] [place] [address] Dr. Vito Grimm Hemoglobin Ql (U) Negative Normal NEGATIVE [facility] Comment on above: Performed By: #### E RUR #### [facility] [address] [place] [address] Dr. Vito Grimm Ketones Ql (U) Negative Normal NEGATIVE [facility] Comment on above: Performed By: #### E RUR #### [facility] [address] [place] [address] Dr. Vito Grimm LEUKOCYTES Negative Normal NEGATIVE [facility] Comment on above: Performed By: #### E RUR #### [facility] [address] [place] [address] Dr. Vito Grimm Nitrite Ql (U) Negative Normal NEGATIVE [facility] Comment on above: Performed By: #### E RUR #### [facility] [address] [place] [address] Dr. Vito Grimm pH (U) 5.5 [pH] Normal 5-9 [facility] Comment on above: Performed By: #### E RUR #### [facility] [address] [place] [address] Dr. Vito Grimm SPEC GRAVITY 1.010 Normal 1.005-<=1. 025 [facility] Comment on above: Performed By: #### E RUR #### [facility] [address] [place] [address] Dr. Vito Grimm UA PROTEIN Negative Normal NEGATIVE/ TRACE [facility] Comment on above: Performed By: #### E RUR #### [facility] [address] [place] [address] Dr. Vito Grimm UR MICRO IND NOT INDICATED Normal [facility] Comment on above: Performed By: #### E RUR #### [facility] [address] [place] [address] Dr. Vito Grimm Urobilinogen Qn (U) 0.2 {Helen'U}/dL Normal 0.2 - 1. 0 [facility] Comment on above: Performed By: #### E RUR #### [facility] [address] [place] [address] Dr. Vito Grimm POINT OF CARE GLUCOSEon 01-03 Glucose [Mass/Vol] 279 mg/dL Critically high 74-106 T [facility] Comment on above: Performed By: #### P OCGLUC #### [facility] [address] [place] [address] Dr. Vito Grimm PROF 14(COMP METB)on 023 Albumin [Mass/Vol] 3.5 g/dL Normal 3.4-5.0 [facility] Comment on above: Performed By: #### C MATHIEU HSTROPN #### [facility] [address] [place] [address] Dr. Vito Grimm Albumin/Globulin [Mass ratio] 1.0 {ratio} Normal [facility] Comment on above: Performed By: #### C MATHIEU HSTROPN #### [facility] [address] [place] [address] Dr. Vito Grimm ALP [Catalytic activity/Vol] 85 U/L Normal 46-116 [facility] Comment on above: Performed By: #### C MATHIEU HSTROPN #### [facility] [address] [place] [address] Dr. Vito Grimm ALT [Catalytic activity/Vol] 28 U/L Normal 14-59 [facility] Comment on above: Performed By: #### C MATHIEU, HSTROPN #### [facility] [address] [address] [address] Vito Grimm Anion gap [Moles/Vol] 15.9 mmol/L Normal Th [facility] Comment on above: Performed By: #### C MATHIEU, HSTROPN #### [facility] [address] [place] [address] Dr. Vito Grimm AST [Catalytic activity/Vol] 16 U/L Normal 15-37 [facility] Comment on above: Performed By: #### C MATHIEU, HSTROPN #### [facility] [address] [place] [address] Dr. Vito Grimm Bilirubin [Mass/Vol] 0.2 mg/dL Normal 0.2-1.0 [facility] Comment on above: Performed By: #### C MATHIEU, HSTROPN #### [facility] [address] [place] [address] Dr. Vito Grimm Calcium [Mass/Vol] 8.8 mg/dL Normal 8.5-10.1 [facility] Comment on above: Performed By: #### C MATHIEU, HSTROPN #### [facility] [address] [place] [address] Dr. Vito Grimm Chloride [Moles/Vol] 96 mmol/L Critically low 98-107 [facility] Comment on above: Performed By: #### C MATHIEU, HSTROPN #### [facility] [address] [place] [address] Dr. Vito Grimm CO2 [Moles/Vol] 24.1 mmol/L Normal 21.0-32.0 [facility] Comment on above: Performed By: #### C MATHIEU, HSTROPN #### [facility] [address] [place] [address] Dr. Vito Grimm Creatinine [Mass/Vol] 0.85 mg/dL Normal 0.55-1.02 [facility] Comment on above: Performed By: #### C MATHIEU, HSTROPN #### [facility] [address] [address] [address] Vito Grimm EGFR-AF CITIZEN OF [place] >60 Normal >=60 [facility] Comment on above: Performed By: #### C MP, HSTROPN #### [facility] [address] [address] [address] Vito Grimm EGFR-NON AF CITIZEN OF [place] >60 Normal >=60 [facility] Comment on above: Performed By: #### C MP, HSTROPN #### [facility] [address] [address] [address] Vito Grimm Globulin (S) [Mass/Vol] 3.6 g/dL Normal [facility] Comment on above: Performed By: #### C MP, HSTROPN #### [facility] [address] [address] [address] Vito Grimm Glucose [Mass/Vol] 350 mg/dL Critically high 74-106 [facility] Comment on above: Performed By: #### C MP, HSTROPN #### [facility] [address] [address] [address] Vito Grimm Potassium [Moles/Vol] 4.0 mmol/L Normal 3.5-5.1 [facility] Comment on above: Performed By: #### C MP, HSTROPN #### [facility] [address] [address] [address] Vito Grimm Protein [Mass/Vol] 7.1 g/dL Normal 6.4-8.2 [facility] Comment on above: Performed By: #### C MP, HSTROPN #### [facility] [address] [address] [address] Vito Grimm Sodium [Moles/Vol] 132 mmol/L Critically low 136-145 [place] Comment on above: Performed By: #### C MP, HSTROPN #### [facility] [address] [address] [address] Vito Grimm Urea nitrogen [Mass/Vol] 10.0 mg/dL Normal 7.0-18.0 [facility] Comment on above: Performed By: #### C MP, HSTROPN #### [facility] [address] [address] [address] Vito Grimm Urea nitrogen/Creatinine [Mass ratio] 11.8 mg/mg Normal [facility] Comment on above: Performed By: #### C MP, HSTROPN #### [facility] [address] [address] [address] Vito Grimm TROPONIN, HIGH SENSITIVITYon 01-29-2023 HSTROP <4.0 Normal 4.0-51.3 [facility] Comment on above: Result Comment: CUT- OFF POINTS HAVE BEEN ESTABLISHED BASED ON THE FOURTH UNIVERSAL DEFINITIONS OF MYOCARDIAL INFARCTION. THE UPPER REFERENCE LIMIT (URL) OF TROPONIN, DEFINED THE 99TH PERCENTILE OF cTnI DISTRIBUTION IN A REFERENCE POPULATION, HAS BEEN CONFIRMED THE DECISION THRESHOLD FOR MS DIAGNOSIS. Performed By: #### C MP, HSTROPN #### [facility] [address] [place] [address] Dr. Vito Grmim HCG ( test) IA.rapi d Ql (U)Ordered By: Kyler Miramontes on 11-18-2022 HCG ( test) Ql (U) Negative [facility] HCG,Urineon 11-18-2022 Beta HCG ( test) Ql (U) Negative Normal [facility] Comment on above: Result Comment: PERF ORMED BY: [facility] [address] [place] [address] PATHOLOGIST [employer] RIDGE HUERTA M.D. Performed By: #### U HCG ####[facility] [place] [address] [facility] CBC AUTO DIFFon 11-12-2022 BASO # 0.1 103/ul Normal 0.0-0.1 [facility] Comment on above: Performed By: #### C MP, HSTROPN #### [facility] [address] [place] [address] Dr. Vito Grimm Basophils/100 WBC (Bld) 0.6 % Normal 0.2-2.0 [facility] Comment on above: Performed By: #### C MP, HSTROPN #### [facility] [address] [place] [address] Dr. Vito Grimm EO # 0.2 103/ul Normal 0.0-0.7 [facility] Comment on above: Performed By: #### C MATHIEU, HSTROPN #### [facility] [address] [place] [address] Dr. Vito Grimm Eosinophils/100 WBC (Bld) 1.1 % Normal 0.9-7.0 [facility] Comment on above: Performed By: #### C MATHIEU, HSTROPN #### [facility] [address] [place] [address] Dr. Vito Grimm Erythrocyte distribution width (RBC) [Ratio] 12.6 % Normal 11.0-15.0 [facility] Comment on above: Performed By: #### C MATHIEU, HSTROPN #### [facility] [address] [place] [address] Dr. Vito Grimm Hematocrit (Bld) [Volume fraction] 39.7 % Normal 36.0-48.0 [facility] Comment on above: Performed By: #### C MATHIEU HSTROPN #### [facility] [address] [place] [address] Dr. Vito Grimm Hemoglobin (Bld) [Mass/Vol] 12.9 g/dL Normal 12.0-16.0 [facility] Comment on above: Performed By: #### C MATHIEU, HSTROPN #### [facility] [address] [place] [address] Dr. Vito Grimm IG # 0.07 10e3/ul Critically high 0.00-0.03 [facility] Comment on above: Performed By: #### C MATHIEU, HSTROPN #### [facility] [address] [place] [address] Dr. Vito Grimm IG % 0.5 % Normal 0.0-0.5 [facility] Comment on above: Performed By: #### C MATHIEU, HSTROPN #### [facility] [address] [place] [address] Dr. Vito Grimm LYMPH # 5.3 103/ul Critically high 1.2-3.8 [facility] Comment on above: Performed By: #### C MATHIEU, HSTROPN #### [facility] [address] [place] [address] Dr. Vito Grimm Lymphocytes/100 WBC (Bld) 38.4 % Normal 20.5-60.0 [facility] Comment on above: Performed By: #### C MATHIEU, HSTROPN #### [facility] [address] [place] [address] Dr. Vito Grimm MANUAL DIFF REQ NO Normal [facility] Comment on above: Performed By: #### C MATHIEU, HSTROPN #### [facility] [address] [place] [address] Dr. Vito Grimm MCH (RBC) [Entitic mass] 29.7 pg Normal 26.7-34.0 [facility] Comment on above: Performed By: #### C MATHIEU, HSTROPN #### [facility] [address] [place] [address] Dr. Vito Grimm MCHC (RBC) [Mass/Vol] 32.5 g/dL Normal 29.9-35.2 [facility] Comment on above: Performed By: #### C MATHIEU, HSTROPN #### [facility] [address] [place] [address] Dr. Vito Grimm MCV (RBC) [Entitic vol] 91.5 fL Normal 81.0-99.0 [facility] Comment on above: Performed By: #### C MATHIEU, HSTROPN #### [facility] [address] [place] [address] Dr. iVto Grimm MONO # 1.0 103/ul Critically high 0.3-0.8 [facility] Comment on above: Performed By: #### C MATHIEU, HSTROPN #### [facility] [address] [place] [address] Dr. Vito Grimm Monocytes/100 WBC (Bld) 7.3 % Normal 1.7-12.0 [facility] Comment on above: Performed By: #### C MP, HSTROPN #### [facility] [address] [place] [address] Dr. Vito Grimm NEUT # 7.2 103/ul Critically high 1.4-6.5 [facility] Comment on above: Performed By: #### C MP, HSTROPN #### [facility] [address] [place] [address] Dr. Vito Grimm Neutrophils/100 WBC (Bld) 52.1 % Normal 43.0-75.0 [facility] Comment on above: Performed By: #### C MP, HSTROPN #### [facility] [address] [place] [address] Dr. Vito Grimm Platelet mean volume (Bld) [Entitic vol] 9.4 fL Critically low 9.5-13.5 [facility] Comment on above: Performed By: #### C MP, HSTROPN #### [facility] [address] [place] [address] Dr. Vito Grimm PLT 297 103/ul Normal 150-450 [facility] Comment on above: Performed By: #### C MP, HSTROPN #### [facility] [address] [place] [address] Dr. Vito Grimm RBC 4.34 106/ul Normal 4.20-5.40 [facility] Comment on above: Performed By: #### C MP, HSTROPN #### [facility] [address] [place] [address] Dr. Vito Grimm WBC 13.9 103/ul Critically high 4.0-11.0 [facility] Comment on above: Performed By: #### C MP, HSTROPN #### [facility] [address] [place] [address] Dr. Vito Grimm DEPAKENE/ VALPROIC ACIDon DEPAKENE 55.9 ug/ml Normal 50.0-100.0 [facility] Comment on above: Performed By: #### V ALP #### [facility] [address] [place] [address] Dr. Vito Grimm LACTATE/LACTIC ACIDon 2022 Lactate [Moles/Vol] 3.6 mmol/L Critically high 0.4-1.9 [facility] Comment on above: Performed By: #### C MP, HSTROPN #### [facility] [address] [address] [address] Vito Grimm PROF 14(COMP METB)on 023 Albumin [Mass/Vol] 3.6 g/dL Normal 3.4-5.0 [facility] Comment on above: Performed By: #### C MP, HSTROPN #### [facility] [address] [address] [address] Vito Grimm Albumin/Globulin [Mass ratio] 1.1 {ratio} Normal [facility] Comment on above: Performed By: #### C MP, HSTROPN #### [facility] [address] [address] [address] Vito Grimm ALP [Catalytic activity/Vol] 57 U/L Normal 46-116 [facility] Comment on above: Performed By: #### C MP, HSTROPN #### [facility] [address] [address] [address] Vito Grimm ALT [Catalytic activity/Vol] 23 U/L Normal 14-59 [facility] Comment on above: Performed By: #### C MP, HSTROPN #### [facility] [address] [address] [address] Vito Grimm Anion gap [Moles/Vol] 17.0 mmol/L Normal Th [facility] Comment on above: Performed By: #### C MP, HSTROPN #### [facility] [address] [address] [address] Vito Grimm AST [Catalytic activity/Vol] 16 U/L Normal 15-37 [facility] Comment on above: Performed By: #### C MP, HSTROPN #### [facility] [address] [address] [address] Vito Grimm Bilirubin [Mass/Vol] 0.1 mg/dL Critically low 0.2-1.0 [facility] Comment on above: Performed By: #### C MP, HSTROPN #### [facility] [address] [place] [address] Dr. Vito Grimm Calcium [Mass/Vol] 8.8 mg/dL Normal 8.5-10.1 [facility] Comment on above: Performed By: #### C MP, HSTROPN #### [facility] [address] [place] [address] Dr. Vito Grimm Chloride [Moles/Vol] 101 mmol/L Normal 98-107 [facility] Comment on above: Performed By: #### C MP, HSTROPN #### [facility] [address] [place] [address] Dr. Vito Grimm CO2 [Moles/Vol] 23.5 mmol/L Normal 21.0-32.0 [facility] Comment on above: Performed By: #### C MP, HSTROPN #### [facility] [facility] [address] [place] [address] Dr. Vito Grimm Creatinine [Mass/Vol] 0.72 mg/dL Normal 0.55-1.02 [facility] Comment on above: Performed By: #### C MP, HSTROPN #### [facility] [address] [place] [address] Dr. Vito Grimm EGFR-AF CITIZEN OF [place] >60 Normal >=60 [facility] Comment on above: Performed By: #### C MP, HSTROPN #### [facility] [address] [place] [address] Dr. Vito Grimm EGFR-NON AF CITIZEN OF [place] >60 Normal >=60 [facility] Comment on above: Performed By: #### C MP, HSTROPN #### [facility] [address] [place] [address] Dr. Vito Grimm Globulin (S) [Mass/Vol] 3.4 g/dL Normal T [facility] Comment on above: Performed By: #### C MP, HSTROPN #### [facility] [address] [place] [address] Dr. Vito Grimm Glucose [Mass/Vol] 146 mg/dL Critically high 74-106 T [facility] Comment on above: Performed By: #### C MP, HSTROPN #### [facility] [address] [address] [address] Vito Grimm Potassium [Moles/Vol] 4.5 mmol/L Normal 3.5-5.1 [facility] Comment on above: Performed By: #### C MP, HSTROPN #### [facility] [address] [address] [address] Vito Grimm Protein [Mass/Vol] 7.0 g/dL Normal 6.4-8.2 [facility] Comment on above: Performed By: #### C MP, HSTROPN #### [facility] [address] [address] [address] Vito Grimm Sodium [Moles/Vol] 137 mmol/L Normal 136-145 [facility] Comment on above: Performed By: #### C MP, HSTROPN #### [facility] [address] [address] [address] Vito Grimm Urea nitrogen [Mass/Vol] 11.0 mg/dL Normal 7.0-18.0 [facility] Comment on above: Performed By: #### C MATHIEU, HSTROPN #### [facility] [address] [address] [address] Vito Grimm Urea nitrogen/Creatinine [Mass ratio] 15.3 mg/mg Normal [facility] Comment on above: Performed By: #### C MP, HSTROPN #### [facility] [address] [place] [address] Dr. Vito Grimm A1C with Estimated Average G lethahuong 11-05-2022 Glucose [Mass/Vol] 143 mg/dL Normal [facility] Comment on above: Order Comment: Reaso n for Exam Type 2 diabetes mellitus without complication, without long- Result Comment: PERF ORMED BY: [facility] [place] [address] PATHOLOGIST [employer] RIDGE HUERTA M.D. Performed By: #### L ACTIC, CUBLD #### [facility] [address] [place] [address] [place] HbA1c (Bld) [Mass fraction] 6.6 % High 4.3-5.6 [facility] Comment on above: Order Comment: Reaso n for Exam Type 2 diabetes mellitus without complication, without long- Result Comment: Incr eased risk for diabetes: 5.7 - 6.4 diabetes: >6.4 glycemic control for adults with diabetes: <7.0 Performed By: #### L ACTIC, CUBLD #### [facility] [address] [id number] [facility] Albumin [Mass/volume] in Ser um or PlasmaOrdered By: Ajit Pettit on 11-05-2022 Albumin [Mass/Vol] 4.2 g/dL 3.2-5.5 [facility] Basophils Auto (Bld) [#/Vol] Ordered By: Ajit Pettit on 11-05-2022 Basophils (Bld) [#/Vol] 0.1 10*3/uL 0.0-0.2 [facility] Basophils/100 WBC Auto (Bld) Ordered By: Ajit Pettit on 11-05-2022 Basophils/100 WBC (Bld) 0.8 % . F [facility] Cholesterol [Mass/volume] in Serum or PlasmaOrdered By: Ajit Pettit on 11-05-2022 Cholesterol [Mass/Vol] 174 mg/dL 140-200 [facility] Comment on above: Chol less than 200 m g/dl low riskChol 201-239 mg/dl borderline riskChol 240 mg/dl and greater high risk Cholesterol in LDL Calc [Mas s/Vol]Ordered By: Ajit Pettit on 11-05-2022 Cholesterol in LDL [Mass/Vol] 66 mg/dL 0-100 [facility] Comment on above: LDL ATP III CLASSIFI CATIONLDL less than 100 mg/dL OptimalLDL 100-129 mg/dL Near or above optimalLDL 130-159 mg/dL Borderline highLDL 160-189 mg/dL HighLDL greater than 189 mg/dL Very high Cholesterol in VLDL Calc [Ma ss/Vol]Ordered By: Ajit Pettit on 11-05-2022 Cholesterol in VLDL [Mass/Vol] 66 mg/dL [facility] Comprehensive Metabolic Pane rosa 11-05-2022 Albumin [Mass/Vol] 4.2 g/dL Normal 3.2-5.5 [facility] Comment on above: Order Comment: Reaso n for Exam Type 2 diabetes mellitus without complication, without long- Reason for Exam Vitamin D deficiency Performed By: #### L ELLIS SIMENTALLD #### [facility] [address] [place] [address] [place] Albumin/Globulin [Mass ratio] 1.6 {ratio} Normal [facility] Comment on above: Order Comment: Reaso n for Exam Type 2 diabetes mellitus without complication, without long- Reason for Exam Vitamin D deficiency Performed By: #### L ELLIS SIMENTALLD #### [facility] [address] [place] [address] [place] ALP [Catalytic activity/Vol] 52 U/L Normal 32-92 [facility] Comment on above: Order Comment: Reaso n for Exam Type 2 diabetes mellitus without complication, without long- Reason for Exam Vitamin D deficiency Performed By: #### L ACTELLIS WHYTELD #### [facility] [address] [place] [address] [place] ALT [Catalytic activity/Vol] 16 U/L Normal 10-60 [facility] Comment on above: Order Comment: Reaso n for Exam Type 2 diabetes mellitus without complication, without long- Reason for Exam Vitamin D deficiency Performed By: #### L ACTELLIS WHYTELD #### [facility] [address] [place] [address] [place] Anion gap [Moles/Vol] 14.2 mmol/L Normal 6.0-15.0 [facility] Comment on above: Order Comment: Reaso n for Exam Type 2 diabetes mellitus without complication, without long- Reason for Exam Vitamin D deficiency Performed By: #### L ACTPATO CUBLD #### [facility] [address] [place] [address] [place] AST [Catalytic activity/Vol] 20 U/L Normal 10-42 [facility] Comment on above: Order Comment: Reaso n for Exam Type 2 diabetes mellitus without complication, without long- Reason for Exam Vitamin D deficiency Performed By: #### L ACTELLIS WHYTELD #### [facility] [address] [place] [address] [place] Bilirubin [Mass/Vol] 0.3 mg/dL Normal 0.3-1.2 [facility] Comment on above: Order Comment: Reaso n for Exam Type 2 diabetes mellitus without complication, without long- Reason for Exam Vitamin D deficiency Performed By: #### L ACTELLIS WHYTELD #### [facility] [address] [place] [address] [facility] Calcium [Mass/Vol] 9.3 mg/dL Normal 8.2-10.2 [facility] Comment on above: Order Comment: Reaso n for Exam Type 2 diabetes mellitus without complication, without long- Reason for Exam Vitamin D deficiency Performed By: #### L ACTELLIS WHYTELD #### [facility] [address] [place] [address] [facility] Chloride [Moles/Vol] 99 mmol/L Normal 95-114 [facility] Comment on above: Order Comment: Reaso n for Exam Type 2 diabetes mellitus without complication, without long- Reason for Exam Vitamin D deficiency Performed By: #### L ACTELLIS WHYTELD #### [facility] [address] [place] [address] [place] CO2 [Moles/Vol] 23.1 mmol/L Normal 22.0-30.0 [facility] Comment on above: Order Comment: Reaso n for Exam Type 2 diabetes mellitus without complication, without long- Reason for Exam Vitamin D deficiency Performed By: #### L ACTELLIS WHYTELD #### [facility] [address] [place] [address] [place] Creatinine [Mass/Vol] 0.57 mg/dL Normal 0.44-1.03 [facility] Comment on above: Order Comment: Reaso n for Exam Type 2 diabetes mellitus without complication, without long- Reason for Exam Vitamin D deficiency Performed By: #### L ACTPATO CUBLD #### [facility] [address] [place] [address] [facility] Estimated GFR ( Katalina > 60 Normal [facility] Comment on above: Order Comment: Reaso n for Exam Type 2 diabetes mellitus without complication, without long- Reason for Exam Vitamin D deficiency Result Comment: GFR estimated reference range: According to KDOQI guidelines, <60 ml/min/1.73m2 is sufficient to diagnose a patient with chronic kidney disease. Performed By: #### L DOUG SIMENTAL #### [facility] [address] [place] [address] [place] Estimated GFR (Non- Am > 60 Normal [facility] Comment on above: Order Comment: Reaso n for Exam Type 2 diabetes mellitus without complication, without long- Reason for Exam Vitamin D deficiency Performed By: #### L DOUG SIMENTAL #### [facility] [address] [place] [address] [place] Globulin (S) [Mass/Vol] 2.6 g/dL Normal [facility] Comment on above: Order Comment: Reaso n for Exam Type 2 diabetes mellitus without complication, without long- Reason for Exam Vitamin D deficiency Performed By: #### L DOUG SIMENTAL #### [facility] [address] [place] [address] [facility] Glucose [Mass/Vol] 96 mg/dL Normal 70-100 [facility] Comment on above: Order Comment: Reaso n for Exam Type 2 diabetes mellitus without complication, without long- Reason for Exam Vitamin D deficiency Result Comment: [place] Glucose Reference Range is dependent on time and content of last meal. Glucose of more than 200 mg/dL in a nonstressed, ambulatory subject supports the diagnosis of Diabetes Mellitus. ADA recommended reference range Performed By: #### L DOUG SIMENTAL #### [facility] [address] [place] [address] [place] Potassium [Moles/Vol] 4.3 mmol/L Normal 3.5-5.1 [facility] Comment on above: Order Comment: Reaso n for Exam Type 2 diabetes mellitus without complication, without long- Reason for Exam Vitamin D deficiency Performed By: #### L DOUG SIMENTAL #### [facility] [address] [place] [address] [facility] Protein [Mass/Vol] 6.8 g/dL Normal 6.1-7.9 [facility] Comment on above: Order Comment: Reaso n for Exam Type 2 diabetes mellitus without complication, without long- Reason for Exam Vitamin D deficiency Performed By: #### L ACTIC, CUBLD #### [facility] [address] [id number] [place] Sodium [Moles/Vol] 132 mmol/L Low 136-146 [facility] Comment on above: Order Comment: Reaso n for Exam Type 2 diabetes mellitus without complication, without long- Reason for Exam Vitamin D deficiency Performed By: #### L ACTIC, CUBLD #### [facility] [address] [id number] [place] Urea nitrogen [Mass/Vol] 7 mg/dL Low 9-23 [facility] Comment on above: Order Comment: Reaso n for Exam Type 2 diabetes mellitus without complication, without long- Reason for Exam Vitamin D deficiency Performed By: #### L ACTPATO, CUBLD #### [facility] [address] [place] [address] [place] Creatinine and Glomerular fi ltration rate.predicted panel (S/P/Bld)Ordered By: Ajit Pettit on 11-05-2022 Creatinine [Mass/Vol] 0.57 mg/dL 0.44-1.03 [facility] Eosinophils Auto (Bld) [#/Vo l]Ordered By: Ajit Pettit on 11-05-2022 Eosinophils (Bld) [#/Vol] 0.1 10*3/uL 0.0-0.45 [facility] Eosinophils/100 WBC Auto (Bl d)Ordered By: Ajit Pettit on 11-05-2022 Eosinophils/100 WBC (Bld) 0.7 % . [facility] Erythrocyte distribution wid th Auto (RBC) [Ratio]Ordered By: Ajit Pettit on 11-05-2022 Erythrocyte distribution width (RBC) [Ratio] 13.5 % 11.9-15.3 [facility] Estimated glomerular filtrat ion rate (GFR) non- AmericanOrdered By: Ajit Pettit on 11-05-2022 GFR/1.73 sq M.predicted among non-blacks MDRD (S/P/Bld) [Vol rate/Area] > 60 mL/Min [facility] Globulin Calc (S) [Mass/Vol] Ordered By: Ajit Pettit on 11-05-2022 Globulin (S) [Mass/Vol] 2.6 g/dL F [facility] Glucose mean value [Mass/vol ume] in Blood Estimated from glycated hemoglobinOrdered By: Ajit Pettit on 11-05-2022 Average glucose Estimated from glycated hemoglobin (Bld) [Mass/Vol] 143 mg/dL [facility] HPV 16+18+31+33+35+39+45+51+ 52+56+58+59+68 DNA cervix probe + signal amplificOrdered By: Ajit Pettit on 11-05-2022 HPV 16+18+31+33+35+39+45+51 +52+56+58+59+68 DNA Probe+sig amp Ql (Cvx) Positive Negative [facility] Comment on above: This nucleic acid am plification test detects fourteen high-risk HPV types (16,18,31,33,35,39,45,51,52,56,58,59,66,68)without differentiation. Hematocrit Auto (Bld) [Volum e fraction]Ordered By: Ajit Pettit on 11-05-2022 Hematocrit (Bld) [Volume fraction] 40.1 % 34.0-46.4 [facility] Hemoglobin A1c percentageOrd ered By: Ajit Pettit on 11-05-2022 HbA1c (Bld) [Mass fraction] 6.6 % 4.3-5.6 [facility] Comment on above: Increased risk for d iabetes: 5.7 - 6.4diabetes: >6.4glycemic control for adults with diabetes: <7.0 Hemoglobin [Mass/volume] in BloodOrdered By: Ajit Pettit on 11-05-2022 Hemoglobin (Bld) [Mass/Vol] 13.2 g/dL 11.8-15.4 [facility] IGP,Aptima HPV,CtNg Age Gdln on 11-05-2022 IGP, Age Gdln Note Normal . [facility] Comment on above: Order Comment: Reaso n for Exam Cervical cancer screening Specimen Comment: [id number] Result Comment: TEST S RESULT FLAG UNITS REF RANGE LAB Clinician Provided Cytology Information No. of containers..01 ThinPrep Vial Age Brian TATE Monisha... 29 FLAG LEGEND: L-Low Normal,H-High Normal,LL-Alert Low,HH-Alert High <-Panic Low,>-Panic High,A-Abnormal,AA-Critical Abnormal Performed at: 01 =G [facility] [address] [address] Breanna Clark MD, Performed By: #### DOUG STONE #### [facility] [address] [place] [address] PAP HPV 16 Negative Normal Negative [facility] Comment on above: Order Comment: Reaso n for Exam Cervical cancer screening Specimen Comment: [id number] Performed By: #### DOUG STONE #### [facility] [address] [place] [address] PAP HPV 18,45 Negative Normal Negative [facility] Comment on above: Order Comment: Reaso n for Exam Cervical cancer screening Specimen Comment: [id number] Result Comment: Perf ormed at: =G - [facility] [address] [id number] Stain Remover: Breanna Clark MD, Phone: [phone] Performed at: WB - [facility] [id number] Stain Remover: Breanna Clark MD, Phone: [phone] PERFORMED BY: [place] [address] PATHOLOGIST [employer] TE[employer]ER RIDGE HUERTA M.D. Performed By: #### L HOLA, ELLISLD #### [address] PAP HPV HR Positive Critically abnormal Negative [facility] Comment on above: Order Comment: Reaso n for Exam Cervical cancer screening Specimen Comment: [id number] Result Comment: This nucleic acid amplification test detects fourteen high- risk HPV types (16,18,31,33,35,39,45,51,52,56,58,59,66,68) without differentiation. Performed By: #### L HOLA, ELLISLD #### [address] Pap Image Guided Note Normal . [facility] Comment on above: Order Comment: Reaso n for Exam Cervical cancer screening Specimen Comment: [id number] Result Comment: TEST S RESULT FLAG UNITS REF RANGE LAB DIAGNOSIS: 02 NEGATIVE FOR INTRAEPITHELIAL LESION OR MALIGNANCY. THIS SPECIMEN WAS RESCREENED PART OF OUR STENCIL MAKER PROGRAM. Specimen adequacy: 02 Satisfactory for evaluation. Endocervical and/or squamous metaplastic cells (endocervical component) are present. Performed by: 02 Larry Mirza, Eating Disorder Psychologist (ASCP) QC reviewed by: 02 Sammie Thomason, Supervisory Eating Disorder Psychologist (ASCP) . 02 Note: Note 02 The [...] <-Panic Low,>-Panic High,A-Abnormal,AA-Critical Abnormal Performed at: [address] [facility] [address] Breanna Clark MD, Performed By: #### L DOUG SIMENTAL #### [facility] [address] [place] [address] Laboratory - Microbiology an d Antimicrobial susceptibilityOrdered By: Ajit Pettit on 11-05-2022 N. gonorrhoeae DNA NAYELY+probe Ql (Unsp spec) Negative Negative [facility] Comment on above: Performed at: =G - L [address] [id number] Director: Breanna Clark MD, Phone: [phone] Leukocytes [#/volume] correc cherie for nucleated erythrocytes in Blood by Automated counOrdered By: Ajit Pettit on 11-05-2022 WBC corrected for nucl RBC Auto (Bld) [#/Vol] 13.7 10*3/uL 3.8-11.6 [facility] Lipid Panelon 11-05-2022 Cholesterol [Mass/Vol] 174 mg/dL Normal 140-200 [facility] Comment on above: Order Comment: Reaso n for Exam Type 2 diabetes mellitus without complication, without long- Reason for Exam Vitamin D deficiency Result Comment: Chol less than 200 mg/dl low risk Chol 201-239 mg/dl borderline risk Chol 240 mg/dl and greater high risk Performed By: #### L DOUG SIMENTAL #### [facility] [address] [id number] [place] Cholesterol in HDL [Mass/Vol] 42 mg/dL Normal 35-85 [facility] Comment on above: Order Comment: Reaso n for Exam Type 2 diabetes mellitus without complication, without long- Reason for Exam Vitamin D deficiency Result Comment: HDL CHOL ATP-III CLASSIFICATION Cardiovascular Risk HDL > or equal to 60 mg/dL LOW HDL < 40 mg/dL HIGH Performed By: #### L ACTDOUG WHYTE #### [facility] [address] Cholesterol.total/Suellen sterol in HDL [Mass ratio] 4.1 {ratio} Normal <5.0 [facility] Comment on above: Order Comment: Reaso n for Exam Type 2 diabetes mellitus without complication, without long- Reason for Exam Vitamin D deficiency Performed By: #### L DOUG SIMENTAL #### [facility] [address] LDL Cholesterol,Calculated 66 mg/dL Normal 0-100 [facility] Comment on above: Order Comment: Reaso [...] Performed By: #### L DOUG SIMENTAL #### [facility] [address] [id number] [place] Triglyceride w/Reflex 330 mg/dL High 35-149 [facility] Comment on above: Order Comment: [...] (CDC) test method. Performed By: #### L ACTDOUG WHYTE #### [facility] [address] [id number] [facility] VLDL CHOLESTEROL 66 mg/dL Normal [facility] Comment on above: Order Comment: Reaso n for Exam Type 2 diabetes mellitus without complication, without long- Reason for Exam Vitamin D deficiency Performed By: #### L DOUG SIMENTAL #### [facility] [address] Lymphocytes Auto (Bld) [#/Vo l]Ordered By: Ajit Pettit on 11-05-2022 Lymphocytes (Bld) [#/Vol] 5.1 10*3/uL 1.00-4.8 [facility] Lymphocytes/100 WBC Auto (Bl d)Ordered By: Ajit Pettit on 11-05-2022 Lymphocytes/100 WBC (Bld) 37.3 % . [facility] MCH Auto (RBC) [Entitic mass ]Ordered By: Ajit Petitt on 11-05-2022 MCH (RBC) [Entitic mass] 29.5 pg 24.7-34.3 [facility] MCHC Auto (RBC) [Mass/Vol]Or dered By: Ajit Pettit on 11-05-2022 MCHC (RBC) [Mass/Vol] 32.8 g/dL 32.0-35.0 [facility] MCV Auto (RBC) [Entitic vol] Ordered By: Ajit Pettit on 11-05-2022 MCV (RBC) [Entitic vol] 90.0 fL 80-100 F [facility] Microcytes LM Ql (Bld)Ordere d By: Ajit Pettit on 11-05-2022 Microcytes Ql (Bld) Slight [facility] Monocytes Auto (Bld) [#/Vol] Ordered By: Ajit Pettit on 11-05-2022 Monocytes (Bld) [#/Vol] 1.1 10*3/uL 0.0-0.8 [facility] Monocytes/100 WBC Auto (Bld) Ordered By: Ajit Pettit on 11-05-2022 Monocytes/100 WBC (Bld) 8.3 % . F [facility] Neutrophils Auto (Bld) [#/Vo l]Ordered By: Ajit Pettit on 11-05-2022 Neutrophils (Bld) [#/Vol] 7.3 10*3/uL 1.8-7.7 [facility] Neutrophils/100 WBC Auto (Bl d)Ordered By: Ajit Pettit on 11-05-2022 Neutrophils/100 WBC (Bld) 52.9 % . [facility] No Panel InformationOrdered By: Ajit Pettit on 11-05-2022 25-Hydroxy Vitamin D Total 28.8 ng/mL 30-100 [facility] Comment on above: VITAMIN D STATUS 25( [place])VITAMIN D RANGE (ng/mL) Deficient <20 Insufficient 20 to <30Sufficient 30 to 100Reference: Jovanni MF,Dominique NC, Gillian NINA, et al. Evaluation,treatment, and prevention of vitamin D deficiency; an Endocrine Society clinical practice guideline. JCEM. 2010; 96(7):1911-30. Luz Elena albicans (NAYELY) Negative Negative [facility] Comment on above: This test was develo ped and its performance characteristicsdetermined by [facility]. It has not been cleared orapproved by the Food and Drug Administration. Luz Elena glabrata (NAYELY) Negative Negative [facility] Comment on above: This test was develo ped and its performance characteristicsdetermined by [facility]. It has not been cleared orapproved by the Food and Drug Administration. Chlamydia trachomatis (NAYELY) (LAB) Negative Negative [facility] Estimated GFR () > 60 mL/Min [facility] Comment on above: GFR estimated refere nce range: According to KDOQI guidelines, <60 ml/min/1.73m2 is sufficient to diagnose a patient with chronic kidney disease. Human Papilloma Virus Type 16 Negative Negative [facility] Human Papilloma Virus Type 18/45 Negative Negative [facility] Comment on above: Performed at: =G - L [facility] [address] [id number] Director: Breanna Clark MD, Phone: [phone] at: WB - [facility] [address] [id number] Director: Breanna Clark MD, Phone: [phone] IG Pap w/Ct-Ng Age Based (Off-Site) Note . [facility] Comment on above: TESTS RESULT FLAG UN ITS REF RANGE LAB - Clinician Provided Cytology Information No. of containers..01 ThinPrep Lupillo TATE Monisha... FLAG LEGEND: L-Low Normal,H-High Normal,LL-Alert Low,HH-Alert High <-Panic Low,>-Panic High,A-Abnormal,AA-Critical Abnormal ------Performed at:01 =G [facility] [place] [address] [place] [address] Breanna Clark MD, Pharmacy Creatinine Clearance (Chem N/A [facility] Thin Prep Pap Comment Note . [facility] Comment on above: TESTS RESULT FLAG [facility] REF RANGE LAB -DIAGNOSIS: 02 NEGATIVE FOR INTRAEPITHELIAL LESION OR MALIGNANCY. THIS SPECIMEN WAS RESCREENED PART OF OUR STENCIL MAKER PROGRAM.Specimen adequacy: 02 Satisfactory for evaluation. Endocervical and/or squamous metaplastic cells (endocervical component) are present.Performed by: 02 Larry Mirza, Eating Disorder Psychologist ([facility])QC reviewed by: 02 Sammie Thomason, Supervisory Eating Disorder Psychologist ([facility]). 02Note: Note 02 The Pap smear is [...] High <-Panic Low,>-Panic High,A-Abnormal,AA-Critical Abnormal ------Performed at: [facility] [address] Breanna Clark MD, Trichomonas vaginalis (NAYELY) Negative Negative [facility] Nucleated erythrocytes [Pres ence] in Blood by Automated countOrdered By: Ajit Pettit on 11-05-2022 Nucleated RBC Auto Ql (Bld) 0.1 /100{WBC} 0-0.5 [facility] Platelet adequacy [Presence] in Blood by Light microscopyOrdered By: Ajit Pettit on 11-05-2022 Platelets LM Ql (Bld) Normal Normal [facility] Platelet mean volume Auto (B ld) [Entitic vol]Ordered By: Ajit Pettit on 11-05-2022 Platelet mean volume (Bld) [Entitic vol] 9.1 fL 6.3-10.7 [facility] Platelet morphology finding [Identifier] in BloodOrdered By: Ajit Pettit on 11-05-2022 Platelet morphology finding Nom (Bld) N/A [facility] Platelets Auto (Bld) [#/Vol] Ordered By: Ajit Pettit on 11-05-2022 Platelets (Bld) [#/Vol] 304 10*3/uL 150-450 [facility] Platelets Large [Presence] i n Blood by Light microscopyOrdered By: Ajit Pettit on 11-05-2022 Platelets Large LM Ql (Bld) Slight [facility] Polychromasia [Presence] in Blood by Light microscopyOrdered By: Ajit Pettit on 11-05-2022 Polychromasia LM Ql (Bld) Slight [facility] Protein [Mass/volume] in Ser um or PlasmaOrdered By: Ajit Pettit on 11-05-2022 Protein [Mass/Vol] 6.8 g/dL 6.1-7.9 [facility] RBC Auto (Bld) [#/Vol]Ordere d By: Ajit Pettit on 11-05-2022 RBC (Bld) [#/Vol] 4.46 10*6/uL 3.60-5.00 [facility] RBC morphologyOrdered By: Cole Pettit on 11-05-2022 RBC morphology finding Nom (Bld) N/A [facility] Scan and CBCon 11-05-2022 Basophils (Bld) [#/Vol] 0.1 10*3/uL Normal 0.0-0.2 [facility] Comment on above: Order Comment: Reaso n for Exam Type 2 diabetes mellitus without complication, without long- Performed By: #### L ELLIS SIMENTALLD #### [facility] [address] [place] [address] [place] Basophils/100 WBC (Bld) 0.8 % Normal . [facility] Comment on above: Order Comment: Reaso n for Exam Type 2 diabetes mellitus without complication, without long- Performed By: #### L ACTELLIS WHYTELD #### [facility] [address] [place] [id number] [place] Eosinophils (Bld) [#/Vol] 0.1 10*3/uL Normal 0.0-0.45 [facility] Comment on above: Order Comment: Reaso n for Exam Type 2 diabetes mellitus without complication, without long- Performed By: #### L ACTIC CUBLD #### [facility] [address] [place] [address] [place] Eosinophils/100 WBC (Bld) 0.7 % Normal . [facility] Comment on above: Order Comment: Reaso n for Exam Type 2 diabetes mellitus without complication, without long- Performed By: #### L DOUG SIMENTAL #### [facility] [address] Erythrocyte distribution width (RBC) [Ratio] 13.5 % Normal 11.9-15.3 [facility] Comment on above: Order Comment: Reaso n for Exam Type 2 diabetes mellitus without complication, without long- Performed By: #### L DOUG SIMENTAL #### [facility] [address] [place] [address] Hematocrit (Bld) [Volume fraction] 40.1 % Normal 34.0-46.4 [facility] Comment on above: Order Comment: Reaso n for Exam Type 2 diabetes mellitus without complication, without long- Performed By: #### L DOUG SIMENTAL #### [facility] [address] [place] [address] [place] Hemoglobin (Bld) [Mass/Vol] 13.2 g/dL Normal 11.8-15.4 [facility] Comment on above: Order Comment: Reaso n for Exam Type 2 diabetes mellitus without complication, without long- Performed By: #### L DOUG SIMENTAL #### [facility] [address] [place] [address] [place] Large Platelets Slight Normal [facility] Comment on above: Order Comment: Reaso n for Exam Type 2 diabetes mellitus without complication, without long- Result Comment: PERF ORMED BY: [place] [address] PATHOLOGIST [employer] RIDGE HUERTA M.D. Performed By: #### L DOUG SIMENTAL #### [facility] [address] [place] [address] Lymphocytes (Bld) [#/Vol] 5.1 10*3/uL High 1.00-4.8 [facility] Comment on above: Order Comment: Reaso n for Exam Type 2 diabetes mellitus without complication, without long- Performed By: #### L ACTIC CUBLD #### [facility] [address] [place] [address] Lymphocytes/100 WBC (Bld) 37.3 % Normal . [facility] Comment on above: Order Comment: Reaso n for Exam Type 2 diabetes mellitus without complication, without long- Performed By: #### L ACTIC CUBLD #### [facility] [address] [place] [address] MCH (RBC) [Entitic mass] 29.5 pg Normal 24.7-34.3 [facility] Comment on above: Order Comment: Reaso n for Exam Type 2 diabetes mellitus without complication, without long- Performed By: #### L ACTIC CUBLD #### [address] MCV (RBC) [Entitic vol] 90.0 fL Normal 80-100 F [facility] Comment on above: Order Comment: Reaso n for Exam Type 2 diabetes mellitus without complication, without long- Performed By: #### L ACTIC CUBLD #### [address] Mean Corpuscular HGB Conc 32.8 g/dL Normal 32.0-35.0 [facility] Comment on above: Order Comment: Reaso n for Exam Type 2 diabetes mellitus without complication, without long- Performed By: #### L ACTPATO CUBLD #### [facility] [address] [place] [address] [place] Microcytosis Slight Normal [facility] Comment on above: Order Comment: Reaso n for Exam Type 2 diabetes mellitus without complication, without long- Performed By: #### L ACTIC CUBLD #### [facility] [address] [place] [address] [place] Monocytes (Bld) [#/Vol] 1.1 10*3/uL High 0.0-0.8 [facility] Comment on above: Order Comment: Reaso n for Exam Type 2 diabetes mellitus without complication, without long- Performed By: #### L ACTIC CUBLD #### [address] [place] [address] [place] Monocytes/100 WBC (Bld) 8.3 % Normal . [facility] Comment on above: Order Comment: Reaso n for Exam Type 2 diabetes mellitus without complication, without long- Performed By: #### L ACTIC CUBLD #### [facility] [address] [place] [address] [place] Neutrophils (Bld) [#/Vol] 7.3 10*3/uL Normal 1.8-7.7 [facility] Comment on above: Order Comment: Reaso n for Exam Type 2 diabetes mellitus without complication, without long- Performed By: #### L ACTIC CUBLD #### [facility] [address] [place] [id number] [place] Neutrophils/100 WBC (Bld) 52.9 % Normal . [facility] Comment on above: Order Comment: Reaso n for Exam Type 2 diabetes mellitus without complication, without long- Performed By: #### L ACTELLIS WHYTELD #### [facility] [address] [place] [id number] [place] NRBC% 0.1 /100{WBC} Normal 0-0.5 [facility] Comment on above: Order Comment: Reaso n for Exam Type 2 diabetes mellitus without complication, without long- Performed By: #### L ACTIC CUBLD #### [facility] [address] [place] [id number] [place] Platelet Estimate Normal Normal Normal [facility] Comment on above: Order Comment: Reaso n for Exam Type 2 diabetes mellitus without complication, without long- Performed By: #### L ACTIC CUBLD #### [facility] [address] [place] [id number] [place] Platelet mean volume (Bld) [Entitic vol] 9.1 fL Normal 6.3-10.7 [facility] Comment on above: Order Comment: Reaso n for Exam Type 2 diabetes mellitus without complication, without long- Performed By: #### L ACTIC CUBLD #### [facility] [address] [place] [address] [place] Platelets (Bld) [#/Vol] 304 10*3/uL Normal 150-450 [facility] Comment on above: Order Comment: Reaso n for Exam Type 2 diabetes mellitus without complication, without long- Performed By: #### L DOUG SIMENTAL #### [facility] [address] Polychromasia Slight Normal [facility] Comment on above: Order Comment: Reaso n for Exam Type 2 diabetes mellitus without complication, without long- Performed By: #### L DOUG SIMENTAL #### [facility] [address] RBC (Bld) [#/Vol] 4.46 10*6/uL Normal 3.60-5.00 [facility] Comment on above: Order Comment: Reaso n for Exam Type 2 diabetes mellitus without complication, without long- Performed By: #### L DOUG SIMENTAL #### [facility] [address] WBC (Bld) [#/Vol] 13.7 10*3/uL High 3.8-11.6 [facility] Comment on above: Order Comment: Reaso n for Exam Type 2 diabetes mellitus without complication, without long- Performed By: #### L DOUG SIMENTAL #### [facility] [address] Serum or plasma alanine george otransferase measurement without P-5'-P (enzymatic activiOrdered By: Ajit Pettit on 11-05-2022 ALT No additional P-5'-P [Catalytic activity/Vol] 16 U/L 10-60 [facility] Serum or plasma albumin/glob ulin mass ratioOrdered By: Ajit Pettit on 11-05-2022 Albumin/Globulin [Mass ratio] 1.6 {ratio} [facility] Serum or plasma alkaline lalo sphatase measurement (enzymatic activity/volume)Ordered By: Ajit Pettit on 11-05-2022 ALP [Catalytic activity/Vol] 52 U/L 32-92 [facility] Serum or plasma anion gap de terminationOrdered By: Ajit Pettit on 11-05-2022 Anion gap [Moles/Vol] 14.2 mmol/L 6.0-15.0 [facility] Serum or plasma aspartate am inotransferase measurement (enzymatic activity/volume)Ordered By: Ajit Pettit on 11-05-2022 AST [Catalytic activity/Vol] 20 U/L 10-42 [facility] Serum or plasma calcium ashwini urement (mass/volume)Ordered By: Ajit Pettit on 11-05-2022 Calcium [Mass/Vol] 9.3 mg/dL 8.2-10.2 [facility] Serum or plasma chloride jett surement (moles/volume)Ordered By: Ajit Pettit on 11-05-2022 Chloride [Moles/Vol] 99 mmol/L 95-114 [facility] Serum or plasma glucose ashwini urement (mass/volume)Ordered By: Ajit Pettit on 11-05-2022 Glucose [Mass/Vol] 96 mg/dL 70-100 [facility] Comment on above: ADA recommended refe rence rangeRandom Glucose Reference Range is dependent on time and content of last meal. Glucose of more than 200 mg/dL in a nonstressed, ambulatory subject supports the diagnosis of Diabetes Mellitus. Serum or plasma high density lipoprotein (HDL) cholesterol measurementOrdered By: Ajit Pettit on 11-05-2022 Cholesterol in HDL [Mass/Vol] 42 mg/dL 35-85 [facility] Comment on above: HDL CHOL ATP-III CLA SSIFICATION Cardiovascular RiskHDL > or equal to 60 mg/dL LOWHDL < 40 mg/dL HIGH Serum or plasma potassium me asurement (moles/volume)Ordered By: Ajit Pettit on 11-05-2022 Potassium [Moles/Vol] 4.3 mmol/L 3.5-5.1 [facility] Serum or plasma sodium measu rement (moles/volume)Ordered By: Ajit Pettit on 11-05-2022 Sodium [Moles/Vol] 132 mmol/L 136-146 [facility] Serum or plasma total biliru bin measurement (mass/volume)Ordered By: Ajit Pettit on 11-05-2022 Bilirubin [Mass/Vol] 0.3 mg/dL 0.3-1.2 [facility] Serum or plasma total carbon dioxide measurement (moles/volume)Ordered By: Ajit Pettit on 11-05-2022 CO2 [Moles/Vol] 23.1 mmol/L 22.0-30.0 [facility] Serum or plasma total choles terol/high density lipoprotein (HDL) cholesterol mass ratOrdered By: Ajit Pettit on 11-05-2022 Cholesterol.total/Suellen sterol in HDL [Mass ratio] 4.1 {ratio} <5.0 [facility] Serum or plasma urea nitroge n measurement (mass/volume)Ordered By: Ajit Pettit on 11-05-2022 Urea nitrogen [Mass/Vol] 7 mg/dL 06-26 [facility] TSH DL <= 0.005 mIU/L QnOrde red By: Ajit Pettit on 11-05-2022 TSH Qn 4.07 m[IU]/L 0.45-5.33 [facility] Thyroid Stim Hormone w/Rflxo n 11-05-2022 Thyroid Stim Hormone w/Rflx 4.07 u[iU]/mL Normal 0.45-5.33 [facility] Comment on above: Order Comment: Reaso n for Exam Type 2 diabetes mellitus without complication, without long- Reason for Exam Vitamin D deficiency Performed By: #### L DOUG SIMENTAL #### [address] Triglyceride [Mass/volume] i n Serum or PlasmaOrdered By: Ajit Pettit on 11-05-2022 Triglyceride [Mass/Vol] 330 mg/dL 35-149 [facility] Comment on above: TRIG ATP III CLASSIF ICATIONTRIG less than 150 mg/dL NormalTRIG 150-199 mg/dL Borderline highTRIG 200-500 mg/dL High TRIG greater than 500 mg/dL Very highStandard traceable to the Center for Disease Conrtrol and Prevention (CDC) test method. Urine Cultureon 11-05-2022 Bacteria identified Cx Nom (U) Reason for Exam Urinary urgency Urine No Growth 2 Days PERFORMED BY: [place] [address] PATHOLOGIST [employer] RIDGE HUERTA M.D. Normal [facility] Comment on above: Performed By: #### L DOUG SIMENTAL #### [facility] [address] Urine culture routineOrdered By: Ajit Pettit on 11-05-2022 Bacteria identified Cx Nom (U) No Growth 2 Days [facility] Vaginal fluid Atopobium vagi rich DNA detection by probe and target amplification methoOrdered By: Ajit Pettit on 11-05-2022 A. vaginae DNA NAYELY+probe Ql (Vag fld) Low - 0 Score . [facility] Vaginal fluid Megasphaera sp ecies type 1 DNA detection by probe and target amplificatOrdered By: Ajit Pettit on 11-05-2022 Megasphaera sp type 1 DNA NAYELY+probe Ql (Vag fld) Low - 0 Score . [facility] Comment on above: Calculate total scor e by adding the 3 individual bacterialvaginosis (BV) marker scores together. Total score isinterpreted as follows:Total score 0-1: Indicates the absence of BV.Total score 2: Indeterminate for BV. Additional clinical data should be evaluated to establish a diagnosis.Total score 3-6: Indicates the presence of BV.This test was developed and its performance characteristicsdetermined by [employer]. It has not been cleared or approvedby the Food and Drug Administration. Vaginal fluid bacterial vagi nosis associated bacterium 2 DNA detection by probe and tOrdered By: Ajit Pettit on 11-05-2022 Bacterial vaginosis associated bacterium 2 DNA NAYELY+probe Ql (Vag fld) Low - 0 Score . [facility] Vaginitis Plus (VG+)on 11-05 Atopobium Vaginae Low - 0 Normal . [facility] Comment on above: Order Comment: Reaso n for Exam Cervical cancer screening Performed By: #### L DOUG SIMENTAL #### [facility] [address] BVAB2 Low - 0 Normal . [facility] Comment on above: Order Comment: Reaso n for Exam Cervical cancer screening Performed By: #### L DOUG SIMENTAL #### [facility] [address] [place] [address] [place] Luz Elena Albicans, NAYELY Negative Normal Negative [facility] Comment on above: Order Comment: Reaso n for Exam Cervical cancer screening Result Comment: This test was developed and its performance characteristics determined by [facility]. It has not been cleared or approved by the Food and Drug Administration. Performed By: #### L ACTIC, CUBLD #### [facility] [address] [place] [address] Luz Elena Glabrata, NAYELY Negative Normal Negative [facility] Comment on above: Order Comment: Reaso n for Exam Cervical cancer screening Result Comment: This test was developed and its performance characteristics determined by [facility]. It has not been cleared or approved by the Food and Drug Administration. PERFORMED BY: [place] [address] PATHOLOGIST [employer] RIDGE HUERTA M.D. Performed By: #### L ACTIC, CUBLD #### [address] Chlamydia Trachomotis, NAYELY Negative Normal Negative [facility] Comment on above: Order Comment: Reaso n for Exam Cervical cancer screening Performed By: #### L ACTIC, CUBLD #### [facility] [address] [place] [address] [place] Megasphaera Low - 0 Normal . [facility] Comment on above: Order Comment: Reaso [...] and Drug Administration. Performed By: #### L ACTIC, CUBLD #### [facility] [address] [place] [address] [place] Neisseria Gonorrhoeae, NAYELY Negative Normal Negative [facility] Comment on above: Order Comment: Reaso n for Exam Cervical cancer screening Result Comment: Perf ormed at: =G - [facility] [address] [id number] Stain Remover: Breanna Clark MD, Phone: [phone] Performed By: #### L DOUG SIMENTAL #### [facility] [address] Tric Vag NAYELY Negative Normal Negative [facility] Comment on above: Order Comment: Reaso n for Exam Cervical cancer screening Performed By: #### L DOUG SIMENTAL #### [address] Vitamin D 25 Hydroxy Totalon 11-05-2022 Vitamin D 25 Hydroxy Total 28.8 ng/mL Low 30-100 [facility] Comment on above: Order Comment: Reaso n for Exam Type 2 diabetes mellitus without complication, without long- Reason for Exam Vitamin D deficiency Result Comment: MICHAEL MIN D STATUS 25(OH)VITAMIN D RANGE (ng/mL) Deficient <20 Insufficient 20 to <30 Sufficient 30 to 100 Reference: Jovanni MF,Dominique NC, Gillian NINA, et al. Evaluation,treatment, and prevention of vitamin D deficiency; an Endocrine Society clinical practice guideline. JCEM. 2010; 96(7):1911-30. PERFORMED BY: [place] [address] PATHOLOGIST [employer] RIDGE HUERTA M.D. Performed By: #### L DOUG SIMENTAL #### [address] WBC Auto (Bld) [#/Vol]Ordere d By: Ajit Pettit on 11-05-2022 WBC (Bld) [#/Vol] 13.7 10*3/uL 3.8-11.6 [facility] XR cervical spine w flex/ext on 11-03-2022 XR cervical spine w flex/ext [facility] [place] [address] [place] [address] XRay Report Signed Patient: Rachel Mcgarry MR#: [id number] 1 : 1980 Acct:[id number] Age/Sex: 42 / F ADM Date: 11/03/22 Loc: XD Room: Type: [facility] Attending Dr: Kyler Miramontes MD Copies [...] Yeboah Jr., D.O.11/03/2022 2:43 PM Dictation Location: [place] [address] Transcribed By: [facility] 11/03/22 1443 Dictated By: Andrés Yeboah Jr, DO 11/03/22 1438 Signed By: 11/03/22 1443 [facility] Ambulatory Visit Summaryon 0 11-02-2022 Ambulatory Visit Summary RACHEL MCGARRY :1980 Visit Date:11/02/2022 Ambulatory Visit Instructions Your Diagnosis Urgency of urination Urethral stricture Feeling of incomplete bladder emptying Tests Performed Urnls Dip Stick Auto w/o Microscopy POC 15187 Your Care Team Attending Physician - Joshua [...] Appointments Wednesday 10:45 AM EDT With: Joshua PRESTON MD Where: [facility] Patient Educationon 11-02-19 23 Patient Education [...] keep your urine pale yellow. ? Take ndfd-jga-afyfblp or prescription medicines. ? Eat foods that are high in fiber, such as beans, whole grains, and fresh fruits and vegetables. ? Limit foods that are high in fat and processed sugars, such as fried or sweet foods. General instructions ? Take zehl-hqk-hukqriw and prescription medicines only as told by [...] muscles that help control urination. ? Take zxms-uvj-phnwnvv and prescription medicines only as told by [...] 07/17/2010 Document Revised: 03/30/2019 Document Reviewed: 03/30/2019 [employer] Patient Education ? 2019 [employer]. Normal [facility] Urology Office/Clinic Noteon 11-02-2022 Urology Office/Clinic Note Chief Complaint Urinary problmes HPI Staff This is a 42 year old female here due to having problems with urination. Previous DX: feeling of incomplete bladder emptying, frequency and urgency. S/P Cysto done 08/24/22. Pt. states she has seen a ACCOUNT ASSISTANT since last visit and she has cyst [...] Information JORDANA BALDERAS, Joshua Dempsey, URL [address] [place], [place] [id number] Business (1) Additional Instructions: 6 month follow [...] mg oral t (more content not included)... [facility] Comment on above: Result Comment: Elec tronically Signed By: Joshua PRESTON MD\.br\Date and Time Signed: 11/02/22 11:43 EST\.br\Electronically Co-Signed By: Bailey Pacheco\.br\Date and Time Co-Signed: 11/02/22 11:30 EST Provider Letteron 09-29-2022 Provider Letter (Inserted Image. Bre ble to display) September 29, 2022 RACHEL MCGARRY [address] [facility] [address] [place] [address] RACHEL MCGARRY 1980 Dear Rachel, You missed [...] do appreciate your understanding. Sincerely, [facility] [address] [address] [facility] Coding Summary.on 08-26-2022 Coding Summary. [id number] Gh0bWw+ PGhlYWQ+NB6IIHPbM91wnKAdjL3 TU7vRIW0EAKQQTSGPHJ3EOZ7hhV T9JNnrX3JsvxLe YrlbkBMgEL44TTh0YNH8iQixMYj llE2fzXXbG4b1LuRgNN11cH61TB cuTADhCbS0UhDxxocovCKg I0ufSdAliRQpPdk+PHRhYmxlIHd lIWZvVXqxDAMwGfDhsUyxTH4iCm 9yZGVyLWNvbGxhcHNlOiBj v2oyZNIoTDkpVW1ezRprE4AyvXO 7PFHfs3k3Yh70pLB+XKJgVIA1fA igWQwad726FbVgs6sbEHB6 dGMtGNmmVYX7Y41xo4W0PGImKWV oHUU0yFT2wO2giPqvjvoxO6IkhA BdRdR5KEN7tMGsfC2dgZif mrfzfF5xOah+T48VMG1PXWMSRL0 CMec7K9RzQntiaSX+XJ86ONZbGU 23qQOfnCMkg4nbbQt9ZgGn XBEoMLW5hMifEOeko0DxLWDyN75 euGWlp1Q5SPPtjOsdpCVzYtEyzZ X8vA4jLOhksmvkt6eunysd Mnbgv4tlbb84yJ88L04rQGpjLMG mLJI3PDYyFJUcfUmzpq7dwV4bBe 8+MHcnb3jmh9twcNd9XcFf TVQemlMdeDykYDS7h8MeFj32Y6I olMjrn6XzDyw4gl96aMMoy9M4rS I9DJltNMJlwN0qQIjdAuU4 NCQxKmTxdU12jFIeAEqoDu2sePy tmUtmUZ1kFKNvsnjrEZGdnG1jVH HhqOZmyClgWO5sVOJcvgcv d540EjXdDJT6CYThzMGdN6RvrZ6 kGmNkWTEeCYUcX3PtoVMmVMfqW2 55CFuyKzH8YOVxvyUaO8Vv SSFqkNztYtY3p8V4Ls5Ku7Wllbo dXMT5IMttSANySfVyCtOrHpR8O5 VnDsc0HQLtaNvgQH3uA3Hc IAGkqledwgqkeDD6QNNsRILwkT6 9rTQeYRqgFx0nn5Y3t536JOWwFH WxdP09Cm8vfNopFSEofYYB tW3nuprxq8kzlbcpZqGmUMZfKYf 5EHf4EZEcfYqdPwPtHJH4JnW9PG G7mSDagR6jzQwiapuhvZ6p Oyc+T55ueJ3fAHU1HBE7euznSRE lplZiAB13FE36X9EwAuklaWYvbM U+JIHvulYsbOzgFH2hOsJb z6ndq8QnNQlkB7TcESJzKAipHkc 4CUGeMUE7jMJ6kS8vQXTbZVcwn8 D9gSB0F9IlrfHtzm6gc1wy UVHfHCfzS43vdNBvq5R5PJPfcWV 7VRWlhGdpCvLdxV29Ihr+PGNvbG lyc4TxAsjip8bjm1oojTg7 HkKoGHXbeuXjaMfvVVZ9q8CoVu2 9O98uQErxPCJbMSXmULHnOGFhpU zxza8bsN2lFh1+PGNvbCB3 yFZ3aM9mJTQyXfD6FDcsX897IyV ltSIcBihbz9jpi8kopUj8WcDbTF QwtvGpdXwiGSU0j2ZdLf36 Y81zPApqHWVvIBSeGJQyNJDtpFe ceu9cvU9gJd0+SS7xf8dqhl05iB 48dHI+GIFiSHO6eWiiMBew YCJafW4zCHcySwY5NAQxFsXrwB4 7eRXwWHigHc3qsOeqvKssXJ6lMB Cktiwuc598WaFjq8wkIOKj uQRgYAywFPX3E75dd9G6HSKdJNY wLCD8bKH8xT3yiUqwybvpeOEapI zpuwBalUsbGXvyNAxyU476 IHRvcDsnPlBhdGllbnQgTmFtZTo 7J0SpPvl9UPPlhEeeVZ3ljSEuHY onUq2bbFpiwQfeBT4xTDFp ssvbm151EiTnp6jmYDOjpTUwVVe gNLE0S31xu3V1UYXtZZKnPLZ3nA N0nF7lyCaefhvugNDvoBvg cvAauJyxZLkcBAzzJ393TQDojKh iUhUulsHdJTWxvVT8MH32EM27wL Zut0P8jHC1N5CjOETihllz yzwdmXQ9EFXeTOBgwC81Vs7hsZi lMf7yKXHmNZB7DJFgwKVjU9JvqZ 6bInZpLWRoDYCaC8YgsCGn PCimZ214PJhxAqN8LSMygoYmN4U wXEMysAlmSiY4w1Z5Uk3HK9G6PK 15YK90mAIri0P6gOK9X2Ux FGUfdkvgrpasaWD0MJQtFJDrgZ1 0Jh2jcJqvIm4lFNTaFCV5VKQpvH UeC3YkmI7nAaVpHNUeADCq E0CdzFUqZYplR157IPviLdU3PIE mbbWpA1LsCFLgzZpwItG0z7S8Xt 9QDIy7YY22IZ83cYAns0L6 iPA8F5SmJSHatqjpnyvceGK0ACL dSRWcoP90Kc7ssVepUe8yDHSlFP Z4WYXslFZtR8MdfB1tKmTo CAYzWLBfX6TjsZAmQGxfA191WMt kGiC0FPWrixXlM5SjUTWjhKelTe T1e3P5Ys3CTGJuJF86UDY6 pXY5KW18IX97L0XmKxfnoMJfbHS +PHRhYmxlIHdpZHRoPScxMDAlJy FdlMuaPG3gQa1gPTRnECAh nPcieWNpZnEpe7knMTJmYImwJQ4 miEhaR1KkzVM9ECBfs8e4Zu39B3 4tL4YirNJ+INWriGK6kZY9 rK2bSpQdLqI1YWekP317QcQzxVT kPazpx2itw9qscKt9SwO6XVRxwk PkzUepURE8z1OaWw41R70d IHdpZHRoPSIxNSUiIHZhbGlnbj0 riM9hOc1+REPiyEL3oWH9sV7vQm EsKkY3IUdnB664AaLumXGc Yjaxg8drk7ieuIp0JiZwSFYrdkG dlSfpESQ2k5XhJy15C9HzlTseb1 UiGfr2kd54yYFxn0V7rEL4 R7QhCCHqiixfiHVpmDguTN7rWKJ btkgsANWnlT4rUDSrU6l3XbPlMu Q4PNekO1QkbaN4HWScjAXw IIxgAOV7G15qv4R7CJVsRRGnKTV 9gXA0oT3cpEklxbxeqBJiqKmyza UcoBprVHrfAGagG960CROy fCtaUZRvgK3hKNQjgKPteFccKT0 wAXGkizesGq0FWEBRJXWSZQ7VNG DJVY68ES40eRKel1G3sAB2 K6AtLGOvrqjkijystEF3USXjOAM nrF78cJHzHTcaUd0xn8P3d129AB VrCEAykU43Yc0dlKlaJJRh kCWVqW1xdhbkf3kjmiroApCbCAV kZDz5SMe9QOGnxWhbFhObBUE4Gd C3RBL5eOCtdG2xfHtmcvcs uQ1vNpx+PPHcYPBsIYw2XYayhPH +DVGjVDE7rFhdMCbpTUXwxH8fJM FkP5o5MjSwFyE0JUwcP9We BKJbnvqpAl69kJ0sKvFcYbT3AEy kO7LzznR6BQOtjCZtARjpTQK5V1 0hl4W5JKVyOUGhCAC5fVJ0 gF6bsXifeohweAPorTjztpRjdIu aCVarIXvhG405QDUctVojRjBrEB kzBPSgAT17US11oMHwb8P0 aKX3C1NgJMWiygsatiaytWH3PWH aXJHsoV64yZGoIRjiWc2rb5A3a2 12SVJhNDDzdU49Yj0mxEum RDGowRJOkH5jvthdu2fujgepLvZ iKVGxVCj9WVn3PURlsIlwCyRbPF Q8IlT2FDF6kDEqdG4loTgi ocgfqG6iQed+CyRfEJrkSP20GP7 8rDEei6V7cUQ9I3QmSVZnokvyqr pmhOQ0KYEyTLTgxZ41xMLo DCrzIy9ed4H7f552BFCbQCUxlL6 9Wb4tcZkeVZMppSPJxP0booles2 uylnqvOvThGRCvBGv6YMv8 UYGgeWovUkBgNYH6UsA2SMC1eNU koS4okAsvyxigxP2oPuo+T3V0cG X7yGRqnJjocTV+WB38mv75 H9LvBhvgCii2MBNmCJT8zMF6uO1 qQBIdOHidq4M2hDV6D4RvzjKriy 6aa7rwDMIfVDcjO79zpUFe k8K7FBWpyPL8PQAghCaqCgBndI7 3Oyc+TYZwfFsag1IzPnbbc8fzl4 ydfKo7RaEfENAzuuXdiRyv PIK9w6FaEh81Y96vMCbiOQYgVIP hNAFhGKAhwXueah8fiI1iWg3+PG MnpFN1dSF2kG2vVxTwHzJ5 YZgbX869HtJkiTOvHssap3pwn3f cxHw2SsFbHNKmdjYyiAzrRXL6y6 PgXr29Q1FauBkkc6QbYeb4 qt89zBPux2S5bGY6M3ChJOEojau yeZVwmDntZZ1iQZFpbtlgULQbkE 3wTJLiV0l9HzRgGjR2FYjg H2DiozZ6IBWlzKPnGROpmNRRsY8 teamqs9padvhgWnIcUELaCDo5WI a8KEYwhHjyJpEnQVO1SpF1 LBQ1xAOkoL8xbDwbkodjpZ0dDnd +KUz5r9fmdQGcDQ0tjYL7ZN95JJ 07fZEwj3V8nWL0E1CsBEJx pedlzgvtjZJ1FLOoGHYmfT22Fv9 svUoaTa1qHCYiQKY2NZGzxSLfK1 IaxV7bGpXfPZHwNIMsT6Gj wBMzJQbhI369DOsyRaS8IOPvlqG jJ5EjXONriGrpLmV4r7Q4Tc3QCG 16SC07ZN17jWRtu8X8yLU8 W5WwFMDtvibawyinaDM2RZUiJZU adR52Nm2gmUviVh8yAMPmITV7ZQ UesDInB7XnoF5yHzUeEDMr FBNoC7DppZElTSccI084ZMriMjH 7VRLpbuWvM7EdTLOosSvfHuB3z0 A9Hl6SUh28GU50VP53yHYw r0W9uTP8H8XsEWJrugogadaapMA 6AJHdQFUgeZ28Tf5ayBcqVx7jUO VbOHV3HKPcjAOwF0KsmE9e JyPxALYqVQNqL0FokXOgWEbsL29 4JAcgSiK6QXZlobVbM6YyXVDefV phYxO5d5J1Tb6AMOivtfe6 V4HqVsffmBQ+MK27BYMsQJ23gOR pwHAll9ndlHj0YxMhVYFfBRD5cG ovKEzzr8LqVJHqX96cxJEy c2U6 (more content not included)... Normal [facility] IntraOperative Documentson 10-25-2021 IntraOperative Documents [id number]#[id number]:127 Normal [facility] Consent for Procedure/Surger yon 08-24-2022 Consent for Procedure/Surgery [id number]#[id number]:127 Normal [facility] Consent for Treatmenton 08-05 Consent for Treatment [id number]#[id number]:127 Normal [facility] Inpatient Patient Summaryon 08-24-2022 Inpatient Patient Summary [place] [id number] Clinical Summary Person Information Name: RACHEL MCGARRY Age: 42 Years : 1980 Sex: Female PCP: AJIT PETTIT CNP Marital Status: Race: White Ethnicity: Non- or Language: Kazakh Visit Id: Visit Reason: FEELING OF INCOMPLETE BLADDER EMPTY URINARY FREQUENCY Speciality: Acuity: Enc Type: Outpatient Med Service: Surgery Arrival: 08/24/2022 13:16:48 Discharge: Dispo Type: Address: [address] [place] [address] [address] [facility] [id number] Provider Notes: Diagnosis: Problems Active Urgency of [...] MD Follow up: With: Address: When: Joshua [address]LDON, [address], [place] [id number] [facility] (1) Within 6 weeks Comments: Call for followup appointment. Monitor the urinary low after the dilation today. Have a great Thanksgiving. Patient Education Information: EU - Cystoscopy with Urethral Dilation Discharge Instructions (Custom) Normal [facility] IntraOperative Documentson 1 10-24-2021 IntraOperative Documents [id number]#[id number]:127 Normal [facility] IntraOperative Documents [id number]#[id number]:127 Normal [facility] Main OR Intraoperative Recor don 08-24-2022 Main OR Intraoperative Record IntraOp Document Type FTURO Summary Primary Physician: Joshua PRESTON MD Finalized Date/Time: 08/24/22 15:52:21 Pt. Name: RACHEL MCGARRY Tyron Greer/Sex: 1980 Female Med Rec #: [id number] Physician: Joshua PRESTON MD Financial #: [id number] Pt. Type: O Room/Bed: / Admit/Disch: 08/24/22 13:16:48 - Institution: Case Times FTURO Entry 1 Patient Times In Room 08/24/22 15:42:00 Out Room 08/24/22 15:52:00 Procedure Times Start 08/24/22 15:45:00 Stop 08/24/22 15:48:00 Anesthesia Times Last Modified By: Kathy Lund RN 08/24/22 15:52:14 Case Attendance FTURO Entry 1 Entry 2 Entry 3 Case Attendee Joshua PRESTON MD WINDER HAND, Kathy Long RN Role Performed Surgeon - Primary Scrub - Primary Pulley Worker - Primary Time In 08/24/22 15:42:00 08/24/22 [...] By: Kathy Lund RN 08/24/22 15:52 Normal [facility] Main OR Preoperative Recordo n 08-24-2022 Main OR Preoperative Record Holding Area Document Type FTURO Summary Primary Physician: Joshua PRESTON MD Finalized Date/Time: 08/24/22 14:57:36 Pt. Name: RACHEL MCGARRY Tyron Daniels./Sex: 1980 Female Med Rec #: [id number] Physician: Joshua PRESTON MD Financial #: [id number] Pt. Type: O Room/Bed: / Admit/Disch: 08/24/22 [...] No Pain Comment: na Skin Integrity Intact, [place], Warm, & Dry Vitals - EU Blood Pressure 145/96 Pulse 76 bpm Respirations 18 br/min SPO2 98 % Last Modified By: Natividad Green LPN 08/24/22 14:57:31 General Comments: Temp:35.8 Finalized By: Natividad Green LPN Document Signatures Signed By: Natividad Green LPN 08/24/22 14:57 Normal [facility] Operative Reporton Operative Report Patient: TARIK MCGARRY Tyron Age: 42 years Sex: Female : 1980 [...] urine. The Urethra was dilated to: 30 Cymro w/ sounds. Devices Implanted: None. Removal: Cystoscope is removed, The patient tolerated it well. Postoperative Information Discharge: Patient is discharged home with antibiotic coverage, Follow up arranged, F/U six weeks. . [facility] Comment on above: Result Comment: Elec tronically Signed By: Joshua PRESTON MD\.br\Date and Time Signed: 08/24/22 15:53 EST Outpatient Surgery Discharge Instructionon 08-24-2022 Outpatient Surgery Discharge Instruction [id number]:127 Normal [facility] Outpatient Surgery Discharge Instruction [place] [id number] Patient Discharge Instructions PERSON INFORMATION Name: RACHEL MCGARRY Date of : 1980 Current Date: 08/24/2022 15:51:11 PHYSICIANS Admitting Physician: Joshua PERSTON MD Comment: Discharge Diagnosis: RACHEL MCGARRY has been given the following list of follow-up instructions, prescriptions, and patient education materials: IF UNABLE TO CONTACT YOUR PHYSICIAN AND YOU FEEL IT IS AN EMERGENCY, GO TO THE NEAREST EMERGENCY ROOM OR CALL 911 Follow up: With: Address: When: Joshua SHELDON, [address], [facility] [place] [address] Business (1) Within 6 weeks Comments: Call [...] you have a fever over 100 degrees ZEFERINO Fritz JAMIE L, have received the attached patient education materials/instructions and have verbalized understanding: May we do a follow up call? Yes No I was present when discharge instructions were given Patient Signature Date Clinican/Nurse Signature Date You may receive a survey from [employer] asking you to rate your care experience. Your feedback is important and will help us understand what we do well and how we can improve the quality of care we provide to you, your loved ones and our community. It?s an honor to serve you. Thank you for choosing [facility] Normal [facility] RAD - CT Reporton 08-06-2022 RAD - CT Report [id number]#1.00CD:127 Normal [facility] RAD - Ultrasound Reporton RAD - Ultrasound Report [id number]#1.00CD:127 Normal [facility] Physician Referralon 022 Physician Referral [id number]#1.00CD:127 Normal [facility] Patient Educationon 07-31-20 22 Patient Education Urology [...] including vitamins, herbs, eye drops, creams, and wlbz-xon-ekwsqtf medicines. ? Whether you are or may [...] system diseases. (more content not included)... Normal [facility] Urology Office/Clinic Noteon 07-31-2022 Urology Office/Clinic Note [...] Contact Information Joshua PRESTON MD, URL [address] [place], [place] [id number]- Additional Instructions: Cysto/ Urodynamics Patient Education Urodynamic Testing IViji, personally scribed for Dr. Preston on 07/31/2022 [...] No qual (more content not included)... Normal [facility] Comment on above: Result Comment: Elec tronically Signed By: Joshua PRESTON MD\.br\Date and Time Signed: 07/31/22 12:15 EDT\.br\Electronically Co-Signed By: Viji Johnson\.dany\Date and Time Co-Signed: 07/31/22 12:12 EDT Basophils Auto (Bld) [#/Vol] Ordered By: Ajit Pettit on 07-08-2022 Basophils (Bld) [#/Vol] 0.1 10*3/uL 0.0-0.2 [facility] Basophils/100 WBC Auto (Bld) Ordered By: Ajit Pettit on 07-08-2022 Basophils/100 WBC (Bld) 0.4 % . F [facility] Blood hemoglobin measurement (mass/volume)Ordered By: Ajit Pettit on 07-08-2022 Hemoglobin (Bld) [Mass/Vol] 12.7 g/dL 11.8-15.4 [facility] Blood leukocytes automated c ount (number/volume)Ordered By: Ajit Pettit on 07-08-2022 WBC (Bld) [#/Vol] 14.3 10*3/uL 4.5-11.0 [facility] Body fluid albumin measureme nt (mass/volume)Ordered By: Ajit Pettit on 07-08-2022 Albumin (Body fld) [Mass/Vol] 3.6 g/dL 3.2-5.5 [facility] Creatinine and Glomerular fi ltration rate.predicted panel (S/P/Bld)Ordered By: Ajit Pettit on 07-08-2022 Creatinine [Mass/Vol] 0.66 mg/dL 0.44-1.03 [facility] Eosinophils Auto (Bld) [#/Vo l]Ordered By: Ajit Pettit on 07-08-2022 Eosinophils (Bld) [#/Vol] 0.2 10*3/uL 0.0-0.45 [facility] Eosinophils/100 WBC Auto (Bl d)Ordered By: Ajit Pettit on 07-08-2022 Eosinophils/100 WBC (Bld) 1.2 % . [facility] Erythrocyte distribution wid th Auto (RBC) [Ratio]Ordered By: Ajit Pettit on 07-08-2022 Erythrocyte distribution width (RBC) [Ratio] 13.5 % 11.9-15.3 [facility] Estimated glomerular filtrat ion rate (GFR) non- AmericanOrdered By: Ajit Pettit on 07-08-2022 GFR/1.73 sq M.predicted among non-blacks MDRD (S/P/Bld) [Vol rate/Area] > 60 mL/Min [facility] Globulin Calc (S) [Mass/Vol] Ordered By: Ajit Pettit on 07-08-2022 Globulin (S) [Mass/Vol] 2.4 g/dL F [facility] Hematocrit Auto (Bld) [Volum e fraction]Ordered By: Ajit Pettit on 07-08-2022 Hematocrit (Bld) [Volume fraction] 38.9 % 34.0-46.4 [facility] - Hematology and Cell countsOrdered By: Ajit Pettit on 07-08-2022 Nucleated RBC/100 WBC (Bld) [Ratio] 0.0 % 0-0.5 [facility] Lymphocytes Auto (Bld) [#/Vo l]Ordered By: Ajit Pettit on 07-08-2022 Lymphocytes (Bld) [#/Vol] 4.5 10*3/uL 1.00-4.8 [facility] Lymphocytes/100 WBC Auto (Bl d)Ordered By: Ajit Pettit on 07-08-2022 Lymphocytes/100 WBC (Bld) 31.2 % . [facility] MCH Auto (RBC) [Entitic mass ]Ordered By: Ajit Pettit on 07-08-2022 MCH (RBC) [Entitic mass] 29.7 pg 24.7-34.3 [facility] MCHC Auto (RBC) [Mass/Vol]Or dered By: Ajit Pettit on 07-08-2022 MCHC (RBC) [Mass/Vol] 32.7 g/dL 32.0-35.0 [facility] MCV Auto (RBC) [Entitic vol] Ordered By: Ajit Pettit on 07-08-2022 MCV (RBC) [Entitic vol] 90.8 fL 80-100 F [facility] Monocytes Auto (Bld) [#/Vol] Ordered By: Ajit Pettit on 07-08-2022 Monocytes (Bld) [#/Vol] 1.1 10*3/uL 0.0-0.8 [facility] Monocytes/100 WBC Auto (Bld) Ordered By: Ajit Pettit on 07-08-2022 Monocytes/100 WBC (Bld) 7.8 % . [facility] Neutrophils Auto (Bld) [#/Vo l]Ordered By: Ajit Pettit on 07-08-2022 Neutrophils (Bld) [#/Vol] 8.5 10*3/uL 1.8-7.7 [facility] Neutrophils/100 WBC Auto (Bl d)Ordered By: Ajit Pettit on 07-08-2022 Neutrophils/100 WBC (Bld) 59.4 % . [facility] No Panel InformationOrdered By: Ajit Pettit on 07-08-2022 Estimated GFR () > 60 mL/Min [facility] Comment on above: GFR estimated refere nce range: According to KDOQI guidelines, <60 ml/min/1.73m2 is sufficient to diagnose a patient with chronic kidney disease. Pharmacy Creatinine Clearance (Chem N/A [facility] Platelet mean volume Auto (B ld) [Entitic vol]Ordered By: Ajit Pettit on 07-08-2022 Platelet mean volume (Bld) [Entitic vol] 8.3 fL 6.3-10.7 [facility] Platelets Auto (Bld) [#/Vol] Ordered By: Ajit Pettit on 07-08-2022 Platelets (Bld) [#/Vol] 332 10*3/uL 150-450 [facility] Protein [Mass/volume] in Ser um or PlasmaOrdered By: Ajit Pettit on 07-08-2022 Protein [Mass/Vol] 6.0 g/dL 6.1-7.9 [facility] RBC Auto (Bld) [#/Vol]Ordere d By: Ajit Pettit on 07-08-2022 RBC (Bld) [#/Vol] 4.29 10*6/uL 3.60-5.00 [facility] Serum or plasma alanine george otransferase measurement without P-5'-P (enzymatic activiOrdered By: Ajit Pettit on 07-08-2022 ALT No additional P-5'-P [Catalytic activity/Vol] 26 U/L 60 [facility] Serum or plasma albumin/glob ulin mass ratioOrdered By: Ajit Pettit on 07-08-2022 Albumin/Globulin [Mass ratio] 1.5 {ratio} [facility] Serum or plasma alkaline lalo sphatase measurement (enzymatic activity/volume)Ordered By: Ajit Pettit on 07-08-2022 ALP [Catalytic activity/Vol] 46 U/L 32-92 [facility] Serum or plasma anion gap de terminationOrdered By: Ajit Pettit on 07-08-2022 Anion gap [Moles/Vol] 15.1 mmol/L 6.0-15.0 [facility] Serum or plasma aspartate am inotransferase measurement (enzymatic activity/volume)Ordered By: Ajit Pettit on 07-08-2022 AST [Catalytic activity/Vol] 31 U/L [facility] Serum or plasma calcium ashwini urement (mass/volume)Ordered By: Ajit Pettit on 07-08-2022 Calcium [Mass/Vol] 9.3 mg/dL 8.2-10.2 [facility] Serum or plasma chloride jett surement (moles/volume)Ordered By: Ajit Pettit on 07-08-2022 Chloride [Moles/Vol] 101 mmol/L 95-114 [facility] Serum or plasma glucose ashwini urement (mass/volume)Ordered By: Ajit Pettit on 07-08-2022 Glucose [Mass/Vol] 129 mg/dL 70-100 [facility] Comment on above: ADA recommended refe rence rangeRandom Glucose Reference Range is dependent on time and content of last meal. Glucose of more than 200 mg/dL in a nonstressed, ambulatory subject supports the diagnosis of Diabetes Mellitus. Serum or plasma potassium me asurement (moles/volume)Ordered By: Ajit Pettit on 07-08-2022 Potassium [Moles/Vol] 5.0 mmol/L 3.5-5.1 [facility] Serum or plasma sodium measu rement (moles/volume)Ordered By: Ajit Pettit on 07-08-2022 Sodium [Moles/Vol] 135 mmol/L 136-146 [facility] Serum or plasma total biliru bin measurement (mass/volume)Ordered By: Ajit Pettit on 07-08-2022 Bilirubin [Mass/Vol] 0.5 mg/dL 0.3-1.2 [facility] Serum or plasma total carbon dioxide measurement (moles/volume)Ordered By: Ajit Pettit on 07-08-2022 CO2 [Moles/Vol] 23.9 mmol/L 22.0-30.0 [facility] Serum or plasma urea nitroge n measurement (mass/volume)Ordered By: Ajit Pettit on 07-08-2022 Urea nitrogen [Mass/Vol] 12 mg/dL 9-23 [facility] TSH DL <= 0.005 mIU/L QnOrde red By: Ajit Pettit on 06-24-2022 TSH Qn 4.14 m[IU]/L 0.45-5.33 [facility] Basophils Auto (Bld) [#/Vol] Ordered By: Ajit Pettit on 06-02-2022 Basophils (Bld) [#/Vol] 0.1 10*3/uL 0.0-0.2 [facility] Basophils/100 WBC Auto (Bld) Ordered By: Ajit Pettit on 06-02-2022 Basophils/100 WBC (Bld) 0.9 % . F [facility] Blood hemoglobin measurement (mass/volume)Ordered By: Ajit Pettit on 06-02-2022 Hemoglobin (Bld) [Mass/Vol] 12.9 g/dL 11.8-15.4 [facility] Blood leukocytes automated c ount (number/volume)Ordered By: Ajit Pettit on 06-02-2022 WBC (Bld) [#/Vol] 16.8 10*3/uL 4.5-11.0 [facility] Body fluid albumin measureme nt (mass/volume)Ordered By: Ajti Pettit on 06-02-2022 Albumin (Body fld) [Mass/Vol] 3.5 g/dL 3.2-5.5 [facility] Creatinine and Glomerular fi ltration rate.predicted panel (S/P/Bld)Ordered By: Ajit Pettit on 06-02-2022 Creatinine [Mass/Vol] 0.58 mg/dL 0.44-1.03 [facility] Eosinophils Auto (Bld) [#/Vo l]Ordered By: Ajit Pettit on 06-02-2022 Eosinophils (Bld) [#/Vol] 0.1 10*3/uL 0.0-0.45 [facility] Eosinophils/100 WBC Auto (Bl d)Ordered By: Ajit Pettit on 06-02-2022 Eosinophils/100 WBC (Bld) 0.7 % . [facility] Erythrocyte distribution wid th Auto (RBC) [Ratio]Ordered By: Ajit Pettit on 06-02-2022 Erythrocyte distribution width (RBC) [Ratio] 13.3 % 11.9-15.3 [facility] Estimated glomerular filtrat ion rate (GFR) non- AmericanOrdered By: Ajit Pettit on 06-02-2022 GFR/1.73 sq M.predicted among non-blacks MDRD (S/P/Bld) [Vol rate/Area] > 60 mL/Min [facility] Globulin Calc (S) [Mass/Vol] Ordered By: Ajit Pettit on 06-02-2022 Globulin (S) [Mass/Vol] 2.5 g/dL [facility] Hematocrit Auto (Bld) [Volum e fraction]Ordered By: Ajit Pettit on 06-02-2022 Hematocrit (Bld) [Volume fraction] 38.8 % 34.0-46.4 [facility] - Hematology and Cell countsOrdered By: Ajit Pettit on 06-02-2022 Nucleated RBC/100 WBC (Bld) [Ratio] 0.0 % 0-0.5 [facility] Lymphocytes Auto (Bld) [#/Vo l]Ordered By: Ajit Pettit on 06-02-2022 Lymphocytes (Bld) [#/Vol] 3.4 10*3/uL 1.00-4.8 [facility] Lymphocytes/100 WBC Auto (Bl d)Ordered By: Ajit Pettit on 06-02-2022 Lymphocytes/100 WBC (Bld) 20.3 % . [facility] MCH Auto (RBC) [Entitic mass ]Ordered By: Ajit Pettit on 06-02-2022 MCH (RBC) [Entitic mass] 30.3 pg 24.7-34.3 [facility] MCHC Auto (RBC) [Mass/Vol]Or dered By: Ajit Pettit on 06-02-2022 MCHC (RBC) [Mass/Vol] 33.2 g/dL 32.0-35.0 [facility] MCV Auto (RBC) [Entitic vol] Ordered By: Ajit Pettit on 06-02-2022 MCV (RBC) [Entitic vol] 91.1 fL 80-100 [facility] Monocytes Auto (Bld) [#/Vol] Ordered By: Ajit Pettit on 06-02-2022 Monocytes (Bld) [#/Vol] 1.2 10*3/uL 0.0-0.8 [facility] Monocytes/100 WBC Auto (Bld) Ordered By: Ajit Pettit on 06-02-2022 Monocytes/100 WBC (Bld) 7.2 % . F [facility] Neutrophils Auto (Bld) [#/Vo l]Ordered By: Ajit Pettit on 06-02-2022 Neutrophils (Bld) [#/Vol] 11.9 10*3/uL 1.8-7.7 [facility] Neutrophils/100 WBC Auto (Bl d)Ordered By: Ajit Pettit on 06-02-2022 Neutrophils/100 WBC (Bld) 70.9 % . [facility] No Panel InformationOrdered By: Ajit Pettit on 06-02-2022 Estimated GFR () > 60 mL/Min [facility] Comment on above: GFR estimated refere nce range: According to KDOQI guidelines, <60 ml/min/1.73m2 is sufficient to diagnose a patient with chronic kidney disease. Pharmacy Creatinine Clearance (Chem N/A [facility] Platelet mean volume Auto (B ld) [Entitic vol]Ordered By: Ajit Pettit on 06-02-2022 Platelet mean volume (Bld) [Entitic vol] 9.2 fL 6.3-10.7 [facility] Platelets Auto (Bld) [#/Vol] Ordered By: Ajit Pettit on 06-02-2022 Platelets (Bld) [#/Vol] 313 10*3/uL 150-450 [facility] Protein [Mass/volume] in Ser um or PlasmaOrdered By: Ajit Pettit on 06-02-2022 Protein [Mass/Vol] 6.0 g/dL 6.1-7.9 [facility] RBC Auto (Bld) [#/Vol]Ordere d By: Ajit Pettit on 06-02-2022 RBC (Bld) [#/Vol] 4.26 10*6/uL 3.60-5.00 [facility] Serum or plasma alanine george otransferase measurement without P-5'-P (enzymatic activiOrdered By: Ajit Pettit on 06-02-2022 ALT No additional P-5'-P [Catalytic activity/Vol] 20 U/L 10-60 [facility] Serum or plasma albumin/glob ulin mass ratioOrdered By: Ajit Pettit on 06-02-2022 Albumin/Globulin [Mass ratio] 1.4 {ratio} [facility] Serum or plasma alkaline lalo sphatase measurement (enzymatic activity/volume)Ordered By: Ajit Pettit on 06-02-2022 ALP [Catalytic activity/Vol] 48 U/L 32-92 [facility] Serum or plasma anion gap de terminationOrdered By: Ajit Pettit on 06-02-2022 Anion gap [Moles/Vol] 15.8 mmol/L 6.0-15.0 [facility] Serum or plasma aspartate am inotransferase measurement (enzymatic activity/volume)Ordered By: Ajit Pettit on 06-02-2022 AST [Catalytic activity/Vol] 21 U/L 10-42 [facility] Serum or plasma calcium ashwini urement (mass/volume)Ordered By: Ajit Pettit on 06-02-2022 Calcium [Mass/Vol] 9.1 mg/dL 8.2-10.2 [facility] Serum or plasma chloride jett surement (moles/volume)Ordered By: Ajit Pettit on 06-02-2022 Chloride [Moles/Vol] 100 mmol/L 95-114 [facility] Serum or plasma glucose ashwini urement (mass/volume)Ordered By: Ajit Pettit on 06-02-2022 Glucose [Mass/Vol] 141 mg/dL 70-100 [facility] Comment on above: ADA recommended refe rence [...] 06-02-2022 Potassium [Moles/Vol] 4.3 mmol/L 3.5-5.1 [facility] Serum or plasma sodium measu rement (moles/volume)Ordered By: Ajit Pettit on 06-02-2022 Sodium [Moles/Vol] 132 mmol/L 136-146 [facility] Serum or plasma total biliru bin measurement (mass/volume)Ordered By: Ajit Pettit on 06-02-2022 Bilirubin [Mass/Vol] 0.5 mg/dL 0.3-1.2 [facility] Serum or plasma total carbon dioxide measurement (moles/volume)Ordered By: Ajit Pettit on 06-02-2022 CO2 [Moles/Vol] 20.5 mmol/L 22.0-30.0 [facility] Serum or plasma urea nitroge n measurement (mass/volume)Ordered By: Ajit Pettit on 06-02-2022 Urea nitrogen [Mass/Vol] 12 mg/dL 9- [facility] TSH DL <= 0.005 mIU/L QnOrde red By: Ajit Pettit on 06-02-2022 TSH Qn 2.06 m[IU]/L 0.45-5.33 [facility] Basophils Auto (Bld) [#/Vol] Ordered By: Jasmin Velázquez on 05-27-2022 Basophils (Bld) [#/Vol] 0.1 10*3/uL 0.0-0.2 [facility] Basophils/100 WBC Auto (Bld) Ordered By: Jasmin Velázquez on 05-27-2022 Basophils/100 WBC (Bld) 0.6 % . F [facility] Blood hemoglobin measurement (mass/volume)Ordered By: Jasmin Velázquez on 05-27-2022 Hemoglobin (Bld) [Mass/Vol] 13.1 g/dL 11.8-15.4 [facility] Blood leukocytes automated c ount (number/volume)Ordered By: Jasmin Velázquez on 05-27-2022 WBC (Bld) [#/Vol] 13.2 10*3/uL 4.5-11.0 [facility] CT biopsyOrdered By: Jasmin noel on 05-27-2022 Transferrin [Mass/Vol] 307 mg/dL 180-380 [facility] Eosinophils Auto (Bld) [#/Vo l]Ordered By: Jasmin Velázquez on 05-27-2022 Eosinophils (Bld) [#/Vol] 0.1 10*3/uL 0.0-0.45 [facility] Eosinophils/100 WBC Auto (Bl d)Ordered By: Jasmin Velázquez on 05-27-2022 Eosinophils/100 WBC (Bld) 1.0 % . [facility] Erythrocyte distribution wid th Auto (RBC) [Ratio]Ordered By: Jasmin Velázquez on 05-27-2022 Erythrocyte distribution width (RBC) [Ratio] 13.5 % 11.9-15.3 [facility] Ferritin [Mass/volume] in Se rum or PlasmaOrdered By: Jasmin Velázquez on 05-27-2022 Ferritin [Mass/Vol] 49.6 ng/mL 11-306.8 [facility] Hematocrit Auto (Bld) [Volum e fraction]Ordered By: Jasmin Velázquez on 05-27-2022 Hematocrit (Bld) [Volume fraction] 40.1 % 34.0-46.4 [facility] Iron [Mass/volume] in Serum or PlasmaOrdered By: Jasmin Velázquez on 05-27-2022 Iron [Mass/Vol] 50 ug/dL 40-150 [facility] Iron binding capacity [Mass/ volume] in Serum or PlasmaOrdered By: Jasmin Velázquez on 05-27-2022 Iron binding capacity [Mass/Vol] 430 ug/dL 255-450 [facility] Iron saturation [Mass Fracti on] in Serum or PlasmaOrdered By: Jasmin Velázquez on 05-27-2022 Iron saturation [Mass fraction] 11.0 % 20-50 [facility] - Hematology and Cell countsOrdered By: Jasmin Velázquez on 05-27-2022 Nucleated RBC/100 WBC (Bld) [Ratio] 0.1 % 0-0.5 [facility] Lymphocytes Auto (Bld) [#/Vo l]Ordered By: Jasmin Velázquez on 05-27-2022 Lymphocytes (Bld) [#/Vol] 3.3 10*3/uL 1.00-4.8 [facility] Lymphocytes/100 WBC Auto (Bl d)Ordered By: Jasmin Velázquez on 05-27-2022 Lymphocytes/100 WBC (Bld) 24.8 % . [facility] MCH Auto (RBC) [Entitic mass ]Ordered By: Jasmin Velázquez on 05-27-2022 MCH (RBC) [Entitic mass] 30.0 pg 24.7-34.3 [facility] MCHC Auto (RBC) [Mass/Vol]Or dered By: Jasmin Velázquez on 05-27-2022 MCHC (RBC) [Mass/Vol] 32.7 g/dL 32.0-35.0 [facility] MCV Auto (RBC) [Entitic vol] Ordered By: Jasmin Velázquez on 05-27-2022 MCV (RBC) [Entitic vol] 91.5 fL 80-100 [facility] Monocytes Auto (Bld) [#/Vol] Ordered By: Jasmin Velázquez on 05-27-2022 Monocytes (Bld) [#/Vol] 1.0 10*3/uL 0.0-0.8 [facility] Monocytes/100 WBC Auto (Bld) Ordered By: Jasmin Velázquez on 05-27-2022 Monocytes/100 WBC (Bld) 7.6 % . [facility] Neutrophils Auto (Bld) [#/Vo l]Ordered By: Jasmin Velázquez on 05-27-2022 Neutrophils (Bld) [#/Vol] 8.7 10*3/uL 1.8-7.7 [facility] Neutrophils/100 WBC Auto (Bl d)Ordered By: Jasmin Velázquez on 05-27-2022 Neutrophils/100 WBC (Bld) 66.0 % . [facility] No Panel InformationOrdered By: Jasmin Velázquez on 05-27-2022 BCR/abl See comment [facility] Comment on above: See report. Scanned copy available in EMR. Platelet mean volume Auto (B ld) [Entitic vol]Ordered By: Jasmin Velázquez on 05-27-2022 Platelet mean volume (Bld) [Entitic vol] 8.8 fL 6.3-10.7 [facility] Platelets Auto (Bld) [#/Vol] Ordered By: Jasmin Velázquez on 05-27-2022 Platelets (Bld) [#/Vol] 284 10*3/uL 150-450 [facility] RBC Auto (Bld) [#/Vol]Ordere d By: Jasmin Velázquez on 05-27-2022 RBC (Bld) [#/Vol] 4.38 10*6/uL 3.60-5.00 [facility] Basophils Auto (Bld) [#/Vol] Ordered By: Ajit Pettit on 05-07-2022 Basophils (Bld) [#/Vol] 0.1 10*3/uL 0.0-0.2 [facility] Basophils/100 WBC Auto (Bld) Ordered By: Ajit Pettit on 05-07-2022 Basophils/100 WBC (Bld) 0.6 % . [facility] Blood hemoglobin measurement (mass/volume)Ordered By: Ajit Pettit on 05-07-2022 Hemoglobin (Bld) [Mass/Vol] 13.4 g/dL 11.8-15.4 [facility] Blood leukocytes automated c ount (number/volume)Ordered By: Ajit Pettit on 05-07-2022 WBC (Bld) [#/Vol] 16.2 10*3/uL 4.5-11.0 [facility] Eosinophils Auto (Bld) [#/Vo l]Ordered By: Ajit Petitt on 05-07-2022 Eosinophils (Bld) [#/Vol] 0.1 10*3/uL 0.0-0.45 [facility] Eosinophils/100 WBC Auto (Bl d)Ordered By: Ajit Pettit on 05-07-2022 Eosinophils/100 WBC (Bld) 0.9 % . [facility] Erythrocyte distribution wid th Auto (RBC) [Ratio]Ordered By: Ajit Pettit on 05-07-2022 Erythrocyte distribution width (RBC) [Ratio] 13.6 % 11.9-15.3 [facility] Hematocrit Auto (Bld) [Volum e fraction]Ordered By: Ajit Pettit on 05-07-2022 Hematocrit (Bld) [Volume fraction] 40.5 % 34.0-46.4 [facility] - Hematology and Cell countsOrdered By: Ajit Pettit on 05-07-2022 Nucleated RBC/100 WBC (Bld) [Ratio] 0.0 % 0-0.5 [facility] Lymphocytes Auto (Bld) [#/Vo l]Ordered By: Ajit Pettit on 05-07-2022 Lymphocytes (Bld) [#/Vol] 4.7 10*3/uL 1.00-4.8 [facility] Lymphocytes/100 WBC Auto (Bl d)Ordered By: Ajit Pettit on 05-07-2022 Lymphocytes/100 WBC (Bld) 28.9 % . [facility] MCH Auto (RBC) [Entitic mass ]Ordered By: Ajit Pettit on 05-07-2022 MCH (RBC) [Entitic mass] 30.7 pg 24.7-34.3 [facility] MCHC Auto (RBC) [Mass/Vol]Or dered By: Ajit Pettit on 05-07-2022 MCHC (RBC) [Mass/Vol] 33.2 g/dL 32.0-35.0 [facility] MCV Auto (RBC) [Entitic vol] Ordered By: Ajit Pettit on 05-07-2022 MCV (RBC) [Entitic vol] 92.5 fL 80-100 [facility] Monocytes Auto (Bld) [#/Vol] Ordered By: Ajit Lariossic on 05-07-2022 Monocytes (Bld) [#/Vol] 1.1 10*3/uL 0.0-0.8 [facility] Monocytes/100 WBC Auto (Bld) Ordered By: Ajit Lariossic on 05-07-2022 Monocytes/100 WBC (Bld) 6.8 % . [facility] Neutrophils Auto (Bld) [#/Vo l]Ordered By: Ajit Spasic on 05-07-2022 Neutrophils (Bld) [#/Vol] 10.2 10*3/uL 1.8-7.7 [facility] Neutrophils/100 WBC Auto (Bl d)Ordered By: Ajit Spasic on 05-07-2022 Neutrophils/100 WBC (Bld) 62.8 % . [facility] No Panel InformationOrdered By: Ajit Pettit on 05-07-2022 Platelet Estimate Normal Normal [facility] Platelet Morphology Comment Normal Normal [facility] Platelet mean volume Auto (B ld) [Entitic vol]Ordered By: Ajit Lariossic on 05-07-2022 Platelet mean volume (Bld) [Entitic vol] 8.0 fL 6.3-10.7 [facility] Platelets Auto (Bld) [#/Vol] Ordered By: Ajit Lariossic on 05-07-2022 Platelets (Bld) [#/Vol] 369 10*3/uL 150-450 [facility] RBC Auto (Bld) [#/Vol]Ordere d By: Ajit Spasic on 05-07-2022 RBC (Bld) [#/Vol] 4.38 10*6/uL 3.60-5.00 [facility] RBC morphologyOrdered By: Cole Pettit on 05-07-2022 RBC morphology finding Nom (Bld) Normal [facility] Bacterial blood cultureOrder ed By: Rod Alvarado on 05-06-2022 Bacteria identified Cx Nom (Bld) NO GROWTH 5 DAYS [facility] Bacteria identified Cx Nom (Bld) NO GROWTH 5 DAYS [facility] Bacterial blood cultureOrder ed By: Ajit Pettit on 05-06-2022 Bacteria identified Cx Nom (Bld) NO GROWTH 5 DAYS [facility] Urine culture routineOrdered By: Ajit Pettit on 05-02-2022 Bacteria identified Cx Nom (U) 2 Days [facility] Activated partial thrombopla stin time (aPTT) in platelet poor plasma by coagulation aOrdered By: Rod Alvarado on 05-01-2022 aPTT Coag (PPP) [Time] 29.2 s 25.1-36.5 [facility] Automated epithelial cells c ount in urine sediment (number/area)Ordered By: Rod Alvarado on 05-01-2022 Epithelial cells Auto (Urine sed) [#/Area] 5-9 [HPF] 0-2 [facility] Automated erythrocytes count in urine sediment (number/area)Ordered By: Rod Alvarado on 05-01-2022 RBC Auto (Urine sed) [#/Area] 1-2 [HPF] 0-4 [facility] Automated leukocytes count i n urine sediment (number/area)Ordered By: Rod Alvarado on 05-01-2022 WBC Auto (Urine sed) [#/Area] 1-2 [HPF] 0-4 [facility] Basophils Auto (Bld) [#/Vol] Ordered By: Rod Alvarado on 05-01-2022 Basophils (Bld) [#/Vol] 0.2 10*3/uL 0.0-0.2 [facility] Basophils Auto (Bld) [#/Vol] Ordered By: Ajit Pettit on 05-01-2022 Basophils (Bld) [#/Vol] 0.1 10*3/uL 0.0-0.2 [facility] Basophils/100 WBC Auto (Bld) Ordered By: Rod Alvarado on 05-01-2022 Basophils/100 WBC (Bld) 1.0 % . [facility] Basophils/100 WBC Auto (Bld) Ordered By: Ajit Pettit on 05-01-2022 Basophils/100 WBC (Bld) 0.7 % . [facility] Bilirubin Auto test strip Ql (U)Ordered By: Rod Alvarado on 05-01-2022 Bilirubin Ql (U) 1+ Negative [facility] Blood hemoglobin measurement (mass/volume)Ordered By: Rod Alvarado on 05-01-2022 Hemoglobin (Bld) [Mass/Vol] 13.1 g/dL 11.8-15.4 [facility] Blood hemoglobin measurement (mass/volume)Ordered By: Ajit Pettit on 05-01-2022 Hemoglobin (Bld) [Mass/Vol] 12.9 g/dL 11.8-15.4 [facility] Blood leukocytes automated c ount (number/volume)Ordered By: Rod Alvarado on 05-01-2022 WBC (Bld) [#/Vol] 15.9 10*3/uL 4.5-11.0 [facility] Blood leukocytes automated c ount (number/volume)Ordered By: Ajit Pettit on 05-01-2022 WBC (Bld) [#/Vol] 14.7 10*3/uL 4.5-11.0 [facility] Body fluid albumin measureme nt (mass/volume)Ordered By: Ajit Pettit on 05-01-2022 Albumin (Body fld) [Mass/Vol] 3.6 g/dL 3.2-5.5 [facility] Creatinine and Glomerular fi ltration rate.predicted panel (S/P/Bld)Ordered By: Rod Alvarado on 05-01-2022 Creatinine [Mass/Vol] 0.58 mg/dL 0.44-1.03 [facility] Creatinine and Glomerular fi ltration rate.predicted panel (S/P/Bld)Ordered By: Ajit Pettit on 05-01-2022 Creatinine [Mass/Vol] 0.58 mg/dL 0.44-1.03 [facility] Eosinophils Auto (Bld) [#/Vo l]Ordered By: Rod Alvarado on 05-01-2022 Eosinophils (Bld) [#/Vol] 0.2 10*3/uL 0.0-0.45 [facility] Eosinophils Auto (Bld) [#/Vo l]Ordered By: Ajit Pettit on 05-01-2022 Eosinophils (Bld) [#/Vol] 0.1 10*3/uL 0.0-0.45 [facility] Eosinophils/100 WBC Auto (Bl d)Ordered By: Rod Alvarado on 05-01-2022 Eosinophils/100 WBC (Bld) 1.0 % . [facility] Eosinophils/100 WBC Auto (Bl d)Ordered By: Ajit Pettit on 05-01-2022 Eosinophils/100 WBC (Bld) 0.9 % . [facility] Erythrocyte distribution wid th Auto (RBC) [Ratio]Ordered By: Rod Alvarado on 05-01-2022 Erythrocyte distribution width (RBC) [Ratio] 13.6 % 11.9-15.3 [facility] Erythrocyte distribution wid th Auto (RBC) [Ratio]Ordered By: Ajit Pettit on 05-01-2022 Erythrocyte distribution width (RBC) [Ratio] 13.6 % 11.9-15.3 [facility] Estimated glomerular filtrat ion rate (GFR) non- AmericanOrdered By: Rod Alvarado on 05-01-2022 GFR/1.73 sq M.predicted among non-blacks MDRD (S/P/Bld) [Vol rate/Area] > 60 mL/Min [facility] Estimated glomerular filtrat ion rate (GFR) non- AmericanOrdered By: Ajit Pettit on 05-01-2022 GFR/1.73 sq M.predicted among non-blacks MDRD (S/P/Bld) [Vol rate/Area] > 60 mL/Min [facility] Globulin Calc (S) [Mass/Vol] Ordered By: Ajit Pettit on 05-01-2022 Globulin (S) [Mass/Vol] 2.6 g/dL [facility] Hematocrit Auto (Bld) [Volum e fraction]Ordered By: Rod Alvarado on 05-01-2022 Hematocrit (Bld) [Volume fraction] 39.0 % 34.0-46.4 [facility] Hematocrit Auto (Bld) [Volum e fraction]Ordered By: Ajit Pettit on 05-01-2022 Hematocrit (Bld) [Volume fraction] 39.0 % 34.0-46.4 [facility] Ketones Auto test strip (U) [Mass/Vol]Ordered By: Rod Alvarado on 05-01-2022 Ketones (U) [Mass/Vol] Trace Negative [facility] - Chemistry and C hemistry - challengeOrdered By: Rod Alvarado on 05-01-2022 Lipase [Catalytic activity/Vol] 37.0 U/L 22-51 [facility] - CoagulationOrde red By: Rod Alvarado on 05-01-2022 PT Coag (PPP) [Time] 9.6 s 9.0-12.9 [facility] Laboratory - Hematology and Cell countsOrdered By: Rod Alvarado on 05-01-2022 Nucleated RBC/100 WBC (Bld) [Ratio] 0.0 % 0-0.5 [facility] - Hematology and Cell countsOrdered By: Ajit Pettit on 05-01-2022 Nucleated RBC/100 WBC (Bld) [Ratio] 0.0 % 0-0.5 [facility] Lymphocytes Auto (Bld) [#/Vo l]Ordered By: Rod Alvarado on 05-01-2022 Lymphocytes (Bld) [#/Vol] 4.3 10*3/uL 1.00-4.8 [facility] Lymphocytes Auto (Bld) [#/Vo l]Ordered By: Ajit Pettit on 05-01-2022 Lymphocytes (Bld) [#/Vol] 3.6 10*3/uL 1.00-4.8 [facility] Lymphocytes/100 WBC Auto (Bl d)Ordered By: Rod Alvarado on 05-01-2022 Lymphocytes/100 WBC (Bld) 26.9 % . [facility] Lymphocytes/100 WBC Auto (Bl d)Ordered By: Ajit Pettit on 05-01-2022 Lymphocytes/100 WBC (Bld) 24.8 % . [facility] MCH Auto (RBC) [Entitic mass ]Ordered By: Rod Alvarado on 05-01-2022 MCH (RBC) [Entitic mass] 30.5 pg 24.7-34.3 [facility] MCH Auto (RBC) [Entitic mass ]Ordered By: Ajit Pettit on 05-01-2022 MCH (RBC) [Entitic mass] 30.5 pg 24.7-34.3 [facility] MCHC Auto (RBC) [Mass/Vol]Or dered By: Rod Alvarado on 05-01-2022 MCHC (RBC) [Mass/Vol] 33.5 g/dL 32.0-35.0 [facility] MCHC Auto (RBC) [Mass/Vol]Or dered By: Ajit Pettit on 05-01-2022 MCHC (RBC) [Mass/Vol] 32.9 g/dL 32.0-35.0 [facility] MCV Auto (RBC) [Entitic vol] Ordered By: Rod Alvarado on 05-01-2022 MCV (RBC) [Entitic vol] 91.0 fL 80-100 [facility] MCV Auto (RBC) [Entitic vol] Ordered By: Ajit Pettit on 05-01-2022 MCV (RBC) [Entitic vol] 92.6 fL 80-100 [facility] Monocytes Auto (Bld) [#/Vol] Ordered By: Rod Alvarado on 05-01-2022 Monocytes (Bld) [#/Vol] 1.1 10*3/uL 0.0-0.8 [facility] Monocytes Auto (Bld) [#/Vol] Ordered By: Ajit Pettit on 05-01-2022 Monocytes (Bld) [#/Vol] 1.1 10*3/uL 0.0-0.8 [facility] Monocytes/100 WBC Auto (Bld) Ordered By: Rod Alvarado on 05-01-2022 Monocytes/100 WBC (Bld) 6.7 % . [facility] Monocytes/100 WBC Auto (Bld) Ordered By: Ajit Pettit on 05-01-2022 Monocytes/100 WBC (Bld) 7.2 % . [facility] Neutrophils Auto (Bld) [#/Vo l]Ordered By: Rod Alvarado on 05-01-2022 Neutrophils (Bld) [#/Vol] 10.3 10*3/uL 1.8-7.7 [facility] Neutrophils Auto (Bld) [#/Vo l]Ordered By: Ajit Pettit on 05-01-2022 Neutrophils (Bld) [#/Vol] 9.8 10*3/uL 1.8-7.7 [facility] Neutrophils/100 WBC Auto (Bl d)Ordered By: Rod Alvarado on 05-01-2022 Neutrophils/100 WBC (Bld) 64.4 % . [facility] Neutrophils/100 WBC Auto (Bl d)Ordered By: Ajit Pettit on 05-01-2022 Neutrophils/100 WBC (Bld) 66.4 % . [facility] No Panel InformationOrdered By: Rod Alvarado on 05-01-2022 Estimated GFR () > 60 mL/Min [facility] Comment on above: GFR estimated refere nce range: According to KDOQI guidelines, <60 ml/min/1.73m2 is sufficient to diagnose a patient with chronic kidney disease. Pharmacy Creatinine Clearance (Chem 128.97 [facility] No Panel InformationOrdered By: Ajit Pettit on 05-01-2022 Estimated GFR () > 60 mL/Min [facility] Comment on above: GFR estimated refere nce range: According to KDOQI guidelines, <60 ml/min/1.73m2 is sufficient to diagnose a patient with chronic kidney disease. Pharmacy Creatinine Clearance (Chem N/A [facility] Platelet mean volume Auto (B ld) [Entitic vol]Ordered By: Rod Alvarado on 05-01-2022 Platelet mean volume (Bld) [Entitic vol] 7.6 fL 6.3-10.7 [facility] Platelet mean volume Auto (B ld) [Entitic vol]Ordered By: Ajit Pettit on 05-01-2022 Platelet mean volume (Bld) [Entitic vol] 8.1 fL 6.3-10.7 [facility] Platelet poor plasma interna tional normalized ratio (INR) by coagulation assay (relatOrdered By: Rod Alvarado on 05-01-2022 INR Coag (PPP) [Relative time] 0.9 {INR} [facility] Comment on above: INR Therapeutic Rang [...] 05-01-2022 Platelets (Bld) [#/Vol] 310 10*3/uL 150-450 [facility] Platelets Auto (Bld) [#/Vol] Ordered By: Ajit Pettit on 05-01-2022 Platelets (Bld) [#/Vol] 284 10*3/uL 150-450 [facility] Protein Auto test strip (U) [Mass/Vol]Ordered By: Rod Alvarado on 05-01-2022 Protein (U) [Mass/Vol] Negative Negative [facility] Protein [Mass/volume] in Ser um or PlasmaOrdered By: Ajit Pettit on 05-01-2022 Protein [Mass/Vol] 6.2 g/dL 6.1-7.9 [facility] RBC Auto (Bld) [#/Vol]Ordere d By: Rod Alvarado on 05-01-2022 RBC (Bld) [#/Vol] 4.29 10*6/uL 3.60-5.00 [facility] RBC Auto (Bld) [#/Vol]Ordere d By: Ajit Pettit on 05-01-2022 RBC (Bld) [#/Vol] 4.22 10*6/uL 3.60-5.00 [facility] Serum or plasma alanine george otransferase measurement without P-5'-P (enzymatic activiOrdered By: Ajit Pettit on 05-01-2022 ALT No additional P-5'-P [Catalytic activity/Vol] 17 U/L 10-60 [facility] Serum or plasma albumin/glob ulin mass ratioOrdered By: Ajit Pettit on 05-01-2022 Albumin/Globulin [Mass ratio] 1.4 {ratio} [facility] Serum or plasma alkaline lalo sphatase measurement (enzymatic activity/volume)Ordered By: Ajit Pettit on 05-01-2022 ALP [Catalytic activity/Vol] 52 U/L 32-92 [facility] Serum or plasma aspartate am inotransferase measurement (enzymatic activity/volume)Ordered By: Ajit Pettit on 05-01-2022 AST [Catalytic activity/Vol] 19 U/L 10-42 [facility] Serum or plasma calcium ashwini urement (mass/volume)Ordered By: Rod Alvarado on 05-01-2022 Calcium [Mass/Vol] 9.0 mg/dL 8.2-10.2 [facility] Serum or plasma calcium ashwini urement (mass/volume)Ordered By: Ajit Pettit on 05-01-2022 Calcium [Mass/Vol] 9.2 mg/dL 8.2-10.2 [facility] Serum or plasma chloride jett surement (moles/volume)Ordered By: Rod Alvarado on 05-01-2022 Chloride [Moles/Vol] 101 mmol/L 95-114 [facility] Serum or plasma chloride jett surement (moles/volume)Ordered By: Ajit Pettit on 05-01-2022 Chloride [Moles/Vol] 100 mmol/L 95-114 [facility] Serum or plasma glucose ashwini urement (mass/volume)Ordered By: Rod Alvarado on 05-01-2022 Glucose [Mass/Vol] 110 mg/dL 70-100 [facility] Comment on above: ADA recommended refe rence [...] or plasma glucose ashwini urement (mass/volume)Ordered By: jAit Pettit on 05-01-2022 Glucose [Mass/Vol] 117 mg/dL 70-100 [facility] Comment on above: ADA recommended refe rence [...] 05-01-2022 Potassium [Moles/Vol] 4.4 mmol/L 3.5-5.1 [facility] Serum or plasma potassium me asurement (moles/volume)Ordered By: Ajit Pettit on 05-01-2022 Potassium [Moles/Vol] 4.4 mmol/L 3.5-5.1 [facility] Serum or plasma sodium measu rement (moles/volume)Ordered By: Rod Alvarado on 05-01-2022 Sodium [Moles/Vol] 135 mmol/L 136-146 [facility] Serum or plasma sodium measu rement (moles/volume)Ordered By: Ajit Pettit on 05-01-2022 Sodium [Moles/Vol] 133 mmol/L 136-146 [facility] Serum or plasma total biliru bin measurement (mass/volume)Ordered By: Rod Alvarado on 05-01-2022 Bilirubin [Mass/Vol] 0.7 mg/dL 0.3-1.2 [facility] Serum or plasma total biliru bin measurement (mass/volume)Ordered By: Ajit Pettit on 05-01-2022 Bilirubin [Mass/Vol] 0.4 mg/dL 0.3-1.2 [facility] Serum or plasma total carbon dioxide measurement (moles/volume)Ordered By: Rod Alvarado on 05-01-2022 CO2 [Moles/Vol] 25.9 mmol/L 22.0-30.0 [facility] Serum or plasma total carbon dioxide measurement (moles/volume)Ordered By: Ajit Pettit on 05-01-2022 CO2 [Moles/Vol] 23.1 mmol/L 22.0-30.0 [facility] Serum or plasma urea nitroge n measurement (mass/volume)Ordered By: Rod Alvarado on 05-01-2022 Urea nitrogen [Mass/Vol] 11 mg/dL 06-26 [facility] Serum or plasma urea nitroge n measurement (mass/volume)Ordered By: Ajit Pettit on 05-01-2022 Urea nitrogen [Mass/Vol] 14 mg/dL 06-26 [facility] Urine appearanceOrdered By: Rod Alvarado on 05-01-2022 Appearance (U) Clear Clear [facility] Urine bacteria detection by automated methodOrdered By: Rod Alvarado on 05-01-2022 Bacteria Auto Ql (U) 1+ None Seen [facility] Urine colorOrdered By: Shady Alvarado on 05-01-2022 Color (U) Yellow Yellow [facility] Urine glucose measurement by automated test strip (mass/volume)Ordered By: Rod Alvarado on 05-01-2022 Glucose Auto test strip (U) [Mass/Vol] Normal mg/dL Normal [facility] Urine hemoglobin detection b y automated test stripOrdered By: Rod Alvarado on 05-01-2022 Hemoglobin Auto test strip Ql (U) Negative Negative [facility] Urine lactic acid measuremen tOrdered By: Rod Alvarado on 05-01-2022 Lactate (U) [Moles/Vol] 1.7 mmol/L 0.5-2.2 [facility] Urine lactic acid measuremen tOrdered By: Ajit Pettit on 05-01-2022 Lactate (U) [Moles/Vol] 2.5 mmol/L 0.5-2.2 [facility] Comment on above: Results called at 1022 on 05/01/22 Results calledat 102 2 on 05/01/22 Urine leukocyte esterase det ection by automated test stripOrdered By: Rod Alvarado on 05-01-2022 Leukocyte esterase Auto test strip Ql (U) 2+ Negative [facility] Urine nitrite detection by a utomated test stripOrdered By: Rod Alvarado on 05-01-2022 Nitrite Auto test strip Ql (U) Negative Negative [facility] Urobilinogen Auto test strip (U) [Mass/Vol]Ordered By: Rod Alvarado on 05-01-2022 Urobilinogen (U) [Mass/Vol] Normal mg/dL Normal [facility] pH Auto test strip (U)Ordere d By: Rod Alvarado on 05-01-2022 pH (U) 1.030 [pH] 1.001-1.03 0 [facility] pH (U) 6.0 [pH] 5.0-9.0 [facility] Basophils Auto (Bld) [#/Vol] Ordered By: Ajit Pettit on 04-30-2022 Basophils (Bld) [#/Vol] 0.2 10*3/uL 0.0-0.2 [facility] Basophils/100 WBC Auto (Bld) Ordered By: Ajit Pettit on 04-30-2022 Basophils/100 WBC (Bld) 0.9 % . [facility] Blood hemoglobin measurement (mass/volume)Ordered By: Ajit Pettit on 04-30-2022 Hemoglobin (Bld) [Mass/Vol] 13.9 g/dL 11.8-15.4 [facility] Blood leukocytes automated c ount (number/volume)Ordered By: Ajit Pettit on 04-30-2022 WBC (Bld) [#/Vol] 19.7 10*3/uL 4.5-11.0 [facility] Body fluid albumin measureme nt (mass/volume)Ordered By: Ajit Pettit on 04-30-2022 Albumin (Body fld) [Mass/Vol] 4.1 g/dL 3.2-5.[address] [facility] [address] biopsyOrdered By: Ajit corrales on 04-30-2022 Transferrin [Mass/Vol] 352 mg/dL 180-380 [facility] Cholesterol [Mass/volume] in Serum or PlasmaOrdered By: Ajit Pettit on 04-30-2022 Cholesterol [Mass/Vol] 260 mg/dL 140-200 [facility] Comment on above: Chol less than 200 m g/dl low risk Chol 201-239 mg/dl borderline risk Chol 240 mg/dl and greater high risk Chol less than 200 m g/dl low riskChol 201-239 mg/dl borderline riskChol 240 mg/dl and greater high risk Cholesterol in LDL Calc [Mas s/Vol]Ordered By: Ajit Pettit on 04-30-2022 Cholesterol in LDL [Mass/Vol] 134 mg/dL 0-100 [facility] Comment on above: LDL ATP III [...] 04-30-2022 Cholesterol in VLDL [Mass/Vol] 68 mg/dL [facility] Creatinine and Glomerular fi ltration rate.predicted panel (S/P/Bld)Ordered By: Ajit Pettit on 04-30-2022 Creatinine [Mass/Vol] 0.56 mg/dL 0.44-1.03 [facility] Eosinophils Auto (Bld) [#/Vo l]Ordered By: Ajit Pettit on 04-30-2022 Eosinophils (Bld) [#/Vol] 0.2 10*3/uL 0.0-0.45 [facility] Eosinophils/100 WBC Auto (Bl d)Ordered By: Ajit Pettit on 04-30-2022 Eosinophils/100 WBC (Bld) 1.0 % . [facility] Erythrocyte distribution wid th Auto (RBC) [Ratio]Ordered By: Ajit Pettit on 04-30-2022 Erythrocyte distribution width (RBC) [Ratio] 13.5 % 11.9-15.3 [facility] Estimated glomerular filtrat ion rate (GFR) non- AmericanOrdered By: Ajit Pettit on 04-30-2022 GFR/1.73 sq M.predicted among non-blacks MDRD (S/P/Bld) [Vol rate/Area] > 60 mL/Min [facility] Globulin Calc (S) [Mass/Vol] Ordered By: Ajit Pettit on 04-30-2022 Globulin (S) [Mass/Vol] 2.9 g/dL [facility] Hematocrit Auto (Bld) [Volum e fraction]Ordered By: Ajit Pettit on 04-30-2022 Hematocrit (Bld) [Volume fraction] 42.9 % 34.0-46.4 [facility] Iron [Mass/volume] in Serum or PlasmaOrdered By: Ajit Pettit on 04-30-2022 Iron [Mass/Vol] 51 ug/dL 40-150 [facility] Iron binding capacity [Mass/ volume] in Serum or PlasmaOrdered By: Ajit Pettit on 04-30-2022 Iron binding capacity [Mass/Vol] 493 ug/dL 255-450 [facility] Iron saturation [Mass Fracti on] in Serum or PlasmaOrdered By: Ajit Pettit on 04-30-2022 Iron saturation [Mass fraction] 10.0 % 20-50 [facility] - Chemistry and C hemistry - challengeOrdered By: Ajit Pettit on 04-30-2022 Cobalamin (Vitamin B12) [Mass/Vol] 472 pg/mL 180-914 [facility] - Hematology and Cell countsOrdered By: Ajit Pettit on 04-30-2022 Nucleated RBC/100 WBC (Bld) [Ratio] 0.2 % 0-0.5 [facility] Lymphocytes Auto (Bld) [#/Vo l]Ordered By: Ajit Pettit on 04-30-2022 Lymphocytes (Bld) [#/Vol] 4.1 10*3/uL 1.00-4.8 [facility] Lymphocytes/100 WBC Auto (Bl d)Ordered By: Ajit Pettit on 04-30-2022 Lymphocytes/100 WBC (Bld) 20.8 % . [facility] MCH Auto (RBC) [Entitic mass ]Ordered By: Ajit Pettit on 04-30-2022 MCH (RBC) [Entitic mass] 30.0 pg 24.7-34.3 [facility] MCHC Auto (RBC) [Mass/Vol]Or dered By: Ajit Pettit on 04-30-2022 MCHC (RBC) [Mass/Vol] 32.4 g/dL 32.0-35.0 [facility] MCV Auto (RBC) [Entitic vol] Ordered By: Ajit Pettit on 04-30-2022 MCV (RBC) [Entitic vol] 92.7 fL 80-100 [facility] Monocytes Auto (Bld) [#/Vol] Ordered By: Ajit Pettit on 04-30-2022 Monocytes (Bld) [#/Vol] 1.3 10*3/uL 0.0-0.8 [facility] Monocytes/100 WBC Auto (Bld) Ordered By: Ajit Pettit on 04-30-2022 Monocytes/100 WBC (Bld) 6.8 % . [facility] Neutrophils Auto (Bld) [#/Vo l]Ordered By: Ajit Pettit on 04-30-2022 Neutrophils (Bld) [#/Vol] 13.9 10*3/uL 1.8-7.7 [facility] Neutrophils/100 WBC Auto (Bl d)Ordered By: Ajit Pettit on 04-30-2022 Neutrophils/100 WBC (Bld) 70.5 % . [facility] No Panel InformationOrdered By: Ajit Pettit on 04-30-2022 25-Hydroxy Vitamin D Total 19.9 ng/mL 30-100 [facility] Comment on above: VITAMIN D STATUS [...] Endocrine Society clinical practice guideline. JCEM. 2010; 96(8):1911-30. Estimated GFR () > 60 mL/Min [facility] Comment on above: GFR estimated refere nce range: According to KDOQI guidelines, <60 ml/min/1.73m2 is sufficient to diagnose a patient with chronic kidney disease. Pharmacy Creatinine Clearance (Chem N/A [facility] Valproic Acid (Depakene) Level 59.8 ug/mL 50.0-100.0 [facility] Comment on above: Last dose: - Platelet mean volume Auto (B ld) [Entitic vol]Ordered By: Ajit Pettit on 04-30-2022 Platelet mean volume (Bld) [Entitic vol] 8.7 fL 6.3-10.7 [facility] Platelets Auto (Bld) [#/Vol] Ordered By: Ajit Pettit on 04-30-2022 Platelets (Bld) [#/Vol] 257 10*3/uL 150-450 [facility] Protein [Mass/volume] in Ser um or PlasmaOrdered By: Ajit Pettit on 04-30-2022 Protein [Mass/Vol] 7.0 g/dL 6.1-7.9 [facility] RBC Auto (Bld) [#/Vol]Ordere d By: Ajit Ptetit on 04-30-2022 RBC (Bld) [#/Vol] 4.62 10*6/uL 3.60-5.00 [facility] Serum or plasma alanine george otransferase measurement without P-5'-P (enzymatic activiOrdered By: Ajit Pettit on 04-30-2022 ALT No additional P-5'-P [Catalytic activity/Vol] 20 U/L 10-60 [facility] Serum or plasma albumin/glob ulin mass ratioOrdered By: Ajit Pettit on 04-30-2022 Albumin/Globulin [Mass ratio] 1.4 {ratio} [facility] Serum or plasma alkaline lalo sphatase measurement (enzymatic activity/volume)Ordered By: Ajit Pettit on 04-30-2022 ALP [Catalytic activity/Vol] 54 U/L 32-92 [facility] Serum or plasma aspartate am inotransferase measurement (enzymatic activity/volume)Ordered By: Ajit Pettit on 04-30-2022 AST [Catalytic activity/Vol] 22 U/L 10-42 [facility] Serum or plasma calcium ashwini urement (mass/volume)Ordered By: Ajit Pettit on 04-30-2022 Calcium [Mass/Vol] 9.4 mg/dL 8.2-10.2 [facility] Serum or plasma chloride jett surement (moles/volume)Ordered By: Ajit Pettit on 04-30-2022 Chloride [Moles/Vol] 102 mmol/L 95-114 [facility] Serum or plasma glucose ashwini urement (mass/volume)Ordered By: Ajit Pettit on 04-30-2022 Glucose [Mass/Vol] 115 mg/dL 70-100 [facility] Comment on above: ADA recommended refe rence [...] Cholesterol in HDL [Mass/Vol] 57 mg/dL 35-85 [facility] Comment on above: HDL CHOL ATP-III CLA SSIFICATION Cardiovascular Risk HDL > or equal to 60 mg/dL LOW HDL < 40 mg/dL HIGH HDL CHOL ATP-III CLA SSIFICATION Cardiovascular RiskHDL > or equal to 60 mg/dL LOWHDL < 40 mg/dL HIGH Serum or plasma potassium me asurement (moles/volume)Ordered By: Ajit Pettit on 04-30-2022 Potassium [Moles/Vol] 4.8 mmol/L 3.5-5.1 [facility] Serum or plasma sodium measu rement (moles/volume)Ordered By: Ajit Pettit on 04-30-2022 Sodium [Moles/Vol] 135 mmol/L 136-146 [facility] Serum or plasma total biliru bin measurement (mass/volume)Ordered By: Ajit Pettit on 04-30-2022 Bilirubin [Mass/Vol] 0.2 mg/dL 0.3-1.2 [facility] Serum or plasma total carbon dioxide measurement (moles/volume)Ordered By: Ajit Pettit on 04-30-2022 CO2 [Moles/Vol] 24.2 mmol/L 22.0-30.0 [facility] Serum or plasma total choles terol/high density lipoprotein (HDL) cholesterol mass ratOrdered By: Ajit Pettit on 04-30-2022 Cholesterol.total/Suellen sterol in HDL [Mass ratio] 4.6 {ratio} <5.0 [facility] Serum or plasma urea nitroge n measurement (mass/volume)Ordered By: Ajit Pettit on 04-30-2022 Urea nitrogen [Mass/Vol] 12 mg/dL 9-23 [facility] TSH DL <= 0.005 mIU/L QnOrde red By: Ajit Pettit on 04-30-2022 TSH Qn 2.89 m[IU]/L 0.45-5.33 [facility] Triglyceride [Mass/volume] i n Serum or PlasmaOrdered By: Ajit Pettit on 04-30-2022 Triglyceride [Mass/Vol] 344 mg/dL 35-149 [facility] Comment on above: TRIG ATP III [...] 01-21-2021 Basophils (Bld) [#/Vol] 0.1 10*3/uL 0.0-0.2 [facility] Basophils/100 WBC Auto (Bld) on 01-21-2021 Basophils/100 WBC (Bld) 1.0 % F [facility] Blood hemoglobin measurement (mass/volume)on 01-21-2021 Hemoglobin (Bld) [Mass/Vol] 13.0 g/dL 11.8-15.4 [facility] Blood leukocytes automated c ount (number/volume)on 01-21-2021 WBC (Bld) [#/Vol] 13.2 10*3/uL 4.5-11.0 [facility] Body fluid albumin measureme nt (mass/volume)on 01-21-2021 Albumin (Body fld) [Mass/Vol] 3.7 g/dL 3.2-5.5 [facility] Creatinine and Glomerular fi ltration rate.predicted panel (S/P/Bld)on 01-21-2021 Creatinine [Mass/Vol] 0.67 mg/dL 0.44-1.03 [facility] Eosinophils Auto (Bld) [#/Vo l]on 01-21-2021 Eosinophils (Bld) [#/Vol] 0.1 10*3/uL 0.0-0.45 [facility] Eosinophils/100 WBC Auto (Bl d)on 01-21-2021 Eosinophils/100 WBC (Bld) 0.8 % [facility] Erythrocyte distribution wid th Auto (RBC) [Ratio]on 01-21-2021 Erythrocyte distribution width (RBC) [Ratio] 13.1 % 11.9-15.3 [facility] Estimated glomerular filtrat ion rate (GFR) non- Americanon 01-21-2021 GFR/1.73 sq M.predicted among non-blacks MDRD (S/P/Bld) [Vol rate/Area] > 60 mL/Min [facility] Globulin Calc (S) [Mass/Vol] on 01-21-2021 Globulin (S) [Mass/Vol] 2.7 g/dL F [facility] Hematocrit Auto (Bld) [Volum e fraction]on 01-21-2021 Hematocrit (Bld) [Volume fraction] 38.1 % 34.0-46.4 [facility] Laboratory - Chemistry and C hemistry - challengeon 01-21-2021 Cobalamin (Vitamin B12) [Mass/Vol] 341 pg/mL 180-914 [facility] - Hematology and Cell countson 01-21-2021 Nucleated RBC/100 WBC (Bld) [Ratio] 0.2 % 0-0.5 [facility] Lymphocytes Auto (Bld) [#/Vo l]on 01-21-2021 Lymphocytes (Bld) [#/Vol] 3.9 10*3/uL 1.00-4.8 [facility] Lymphocytes/100 WBC Auto (Bl d)on 01-21-2021 Lymphocytes/100 WBC (Bld) 29.4 % [facility] MCH Auto (RBC) [Entitic mass ]on 01-21-2021 MCH (RBC) [Entitic mass] 30.6 pg 24.7-34.3 [facility] MCHC Auto (RBC) [Mass/Vol]on 01-21-2021 MCHC (RBC) [Mass/Vol] 34.1 g/dL 32.0-35.0 [facility] MCV Auto (RBC) [Entitic vol] on 01-21-2021 MCV (RBC) [Entitic vol] 89.6 fL 80-100 [facility] Monocytes Auto (Bld) [#/Vol] on 01-21-2021 Monocytes (Bld) [#/Vol] 1.1 10*3/uL 0.0-0.8 [facility] Monocytes/100 WBC Auto (Bld) on 01-21-2021 Monocytes/100 WBC (Bld) 8.6 % [facility] Neutrophils Auto (Bld) [#/Vo l]on 01-21-2021 Neutrophils (Bld) [#/Vol] 8.0 10*3/uL 1.8-7.7 [facility] Neutrophils/100 WBC Auto (Bl d)on 01-21-2021 Neutrophils/100 WBC (Bld) 60.2 % [facility] No Panel Informationon 01-21 25-Hydroxy Vitamin D Total 25.5 ng/mL 30-100 [facility] Comment on above: VITAMIN D STATUS 25( [place])VITAMIN D RANGE (ng/mL) Deficient <20 Insufficient 20 to <30Sufficient 30 to 100Reference: Jovanni MF,Dominique NC, Gillian NINA, et al. Evaluation,treatment, and prevention of vitamin D deficiency; an Endocrine Society clinical practice guideline. JCEM. 2010; 96(7):1911-30. Estimated GFR () > 60 mL/Min [facility] Comment on above: GFR estimated refere nce range: According to KDOQI guidelines, <60 ml/min/1.73m2 is sufficient to diagnose a patient with chronic kidney disease. Pharmacy Creatinine Clearance (Chem N/A [facility] Valproic Acid (Depakene) Level 74.3 ug/mL 50.0-100.0 [facility] Comment on above: Last dose: - Platelet mean volume Auto (B ld) [Entitic vol]on 01-21-2021 Platelet mean volume (Bld) [Entitic vol] 9.1 fL 6.3-10.7 [facility] Platelets Auto (Bld) [#/Vol] on 01-21-2021 Platelets (Bld) [#/Vol] 261 10*3/uL 150-450 [facility] Protein [Mass/volume] in Ser um or Plasmaon 01-21-2021 Protein [Mass/Vol] 6.4 g/dL 6.1-7.9 [facility] RBC Auto (Bld) [#/Vol]on RBC (Bld) [#/Vol] 4.25 10*6/uL 3.60-5.00 [facility] Serum or plasma alanine george otransferase measurement without P-5'-P (enzymatic activion 01-21-2021 ALT No additional P-5'-P [Catalytic activity/Vol] 14 U/L 10-60 [facility] Serum or plasma albumin/glob ulin mass ratioon 01-21-2021 Albumin/Globulin [Mass ratio] 1.4 {ratio} [facility] Serum or plasma alkaline lalo sphatase measurement (enzymatic activity/volume)on 01-21-2021 ALP [Catalytic activity/Vol] 50 U/L 32-92 [facility] Serum or plasma aspartate am inotransferase measurement (enzymatic activity/volume)on 01-21-2021 AST [Catalytic activity/Vol] 17 U/L 10-42 [facility] Serum or plasma calcium ashwini urement (mass/volume)on 01-21-2021 Calcium [Mass/Vol] 9.5 mg/dL 8.2-10.2 [facility] Serum or plasma chloride jett surement (moles/volume)on 01-21-2021 Chloride [Moles/Vol] 96 mmol/L 95-114 [facility] Serum or plasma glucose ashwini urement (mass/volume)on 01-21-2021 Glucose [Mass/Vol] 117 mg/dL 70-100 [facility] Comment on above: ADA recommended refe rence rangeRandom Glucose Reference Range is dependent on time and content of last meal. Glucose of more than 200 mg/dL in a nonstressed, ambulatory subject supports the diagnosis of Diabetes Mellitus. Serum or plasma potassium me asurement (moles/volume)on 01-21-2021 Potassium [Moles/Vol] 4.3 mmol/L 3.5-5.1 [facility] Serum or plasma sodium measu rement (moles/volume)on 01-21-2021 Sodium [Moles/Vol] 132 mmol/L 136-146 [facility] Serum or plasma total biliru bin measurement (mass/volume)on 01-21-2021 Bilirubin [Mass/Vol] 0.3 mg/dL 0.3-1.2 [facility] Serum or plasma total carbon dioxide measurement (moles/volume)on 01-21-2021 CO2 [Moles/Vol] 23.6 mmol/L 22.0-30.0 [facility] Serum or plasma urea nitroge n measurement (mass/volume)on 01-21-2021 Urea nitrogen [Mass/Vol] 13 mg/dL 9-23 [facility] Albumin [Mass/volume] in Ser um or Plasmaon 11-05-2020 Albumin [Mass/Vol] 4.4 g/dL 3.2-5.5 [facility] Automated basophil %on 11-05 Basophils/100 WBC (Bld) 0.7 % [facility] Automated basophil counton 0 11-05-2020 Basophils (Bld) [#/Vol] 0.1 10*3/uL 0.0-0.2 [facility] Automated blood lymphocyte c ount (number/volume)on 11-05-2020 Lymphocytes (Bld) [#/Vol] 3.5 10*3/uL 1.00-4.8 [facility] Automated blood lymphocyte c ount as percentage of total leukocyteson 11-05-2020 Lymphocytes/100 WBC (Bld) 26.0 % [facility] Automated blood monocyte cou nton 11-05-2020 Monocytes (Bld) [#/Vol] 1.2 10*3/uL 0.0-0.8 [facility] Automated blood platelet cou nt (count/volume)on 11-05-2020 Platelets (Bld) [#/Vol] 317 10*3/uL 150-450 [facility] Automated blood platelet jett n volume measurementon 11-05-2020 Platelet mean volume (Bld) [Entitic vol] 8.2 fL 6.3-10.7 [facility] Automated eosinophil %on Eosinophils/100 WBC (Bld) 0.5 % [facility] Automated eosinophil counton 11-05-2020 Eosinophils (Bld) [#/Vol] 0.1 10*3/uL 0.0-0.45 [facility] Automated erythrocyte distri bution width ratioon 11-05-2020 Erythrocyte distribution width (RBC) [Ratio] 13.0 % 11.9-15.3 [facility] Automated erythrocyte mean c orpuscular hemoglobin (mass per erythrocyte)on 11-05-2020 MCH (RBC) [Entitic mass] 30.2 pg 24.7-34.3 [facility] Automated erythrocyte mean c orpuscular hemoglobin concentration measurement (mass/volon 11-05-2020 MCHC (RBC) [Mass/Vol] 33.9 g/dL 32.0-35.0 [facility] [place] Automated erythrocyte mean c orpuscular volumeon 11-05-2020 MCV (RBC) [Entitic vol] 89.1 fL 80-100 F [facility] Automated monocyte %on 11-05 Monocytes/100 WBC (Bld) 8.8 % F [facility] Automated neutrophil %on Neutrophils/100 WBC (Bld) 64.0 % [facility] Blood erythrocytes automated count (number/volume)on 11-05-2020 RBC (Bld) [#/Vol] 4.92 10*6/uL 3.60-5.00 [facility] Blood hemoglobin measurement (mass/volume)on 11-05-2020 Hemoglobin (Bld) [Mass/Vol] 14.9 g/dL 11.8-15.4 [facility] Blood leukocytes automated c ount (number/volume)on 11-05-2020 WBC (Bld) [#/Vol] 13.4 10*3/uL 4.5-11.0 [facility] Blood neutrophil count by au tomated method (number/volume)on 11-05-2020 Neutrophils (Bld) [#/Vol] 8.6 10*3/uL 1.8-7.7 [facility] Estimated glomerular filtrat ion rate (GFR) non- Americanon 11-05-2020 GFR/1.73 sq M predicted among non-blacks MDRD (S/P/Bld) [Vol rate/Area] mL/min/{1.73_m2} [facility] Hematocrit [Volume Fraction] of Blood by Automated counton 11-05-2020 Hematocrit (Bld) [Volume fraction] 43.8 % 34.0-46.4 [facility] Otheron 11-05-2020 GFR/1.73 sq M.predicted MDRD (S/P/Bld) [Vol rate/Area] mL/min/{1.73_m2} [facility] Comment on above: GFR estimated refere nce range: According to KDOQI guidelines, <60 ml/min/1.73m2 is sufficient to diagnose a patient with chronic kidney disease. Nucleated RBC/100 WBC (Bld) [Ratio] 0.2 % 0-0.5 [facility] Pharmacy Creatinine Clearance (Chem N/A [facility] Protein [Mass/volume] in Ser um or Plasmaon 11-05-2020 Protein [Mass/Vol] 7.2 g/dL 6.1-7.9 [facility] Serum globulin measurement b y calculation (mass/volume)on 11-05-2020 Globulin (S) [Mass/Vol] 2.8 g/dL F [facility] Serum glutamate decarboxylas e 65 antibody assay (units/volume)on 11-05-2020 Glutamate decarboxylase 65 Ab Qn (S) <5.0 U/mL [facility] Comment on above: Performed at: [email or web address] [address] [id number] Director: Ana Lee MD, Phone: [phone] Serum nuclear antibody titer on 11-05-2020 Nuclear Ab (S) [Titer] Negative [facility] Comment on above: Negative <1:80 Borde rline 1:80 Positive >1:80Performed at: [facility] [id number] [place], [place] [id number] Director: Daniel Wen PhD, Phone: [phone] Nuclear Ab (S) [Titer] Negative [facility] Comment on above: Negative <1:80 Borde rline 1:80 Positive >1:80Performed at: [facility] [address] [id number] Director: Daniel Wen PhD, Phone: [phone] Serum or plasma alanine george otransferase measurement without P-5'-P (enzymatic activion 11-05-2020 ALT No additional P-5'-P [Catalytic activity/Vol] 22 U/L 10-60 [facility] Serum or plasma albumin/glob ulin mass ratioon 11-05-2020 Albumin/Globulin [Mass ratio] 1.6 {ratio} [facility] Serum or plasma alkaline lalo sphatase measurement (enzymatic activity/volume)on 11-05-2020 ALP [Catalytic activity/Vol] 60 U/L 32-92 [facility] Serum or plasma aspartate am inotransferase measurement (enzymatic activity/volume)on 11-05-2020 AST [Catalytic activity/Vol] 23 U/L 10-42 [facility] Serum or plasma calcium ashwini urement (mass/volume)on 11-05-2020 Calcium [Mass/Vol] 9.6 mg/dL 8.2-10.2 [facility] Serum or plasma chloride jett surement (moles/volume)on 11-05-2020 Chloride [Moles/Vol] 93 mmol/L 95-114 [facility] Serum or plasma creatinine m easurement with calculation of estimated glomerular filtron 11-05-2020 Creatinine [Mass/Vol] 0.62 mg/dL 0.44-1.03 [facility] [place] Serum or plasma glucose ashwini urement (mass/volume)on 11-05-2020 Glucose [Mass/Vol] 82 mg/dL 70-100 [facility] Comment on above: ADA recommended refe rence rangeRandom Glucose Reference Range is dependent on time and content of last meal. Glucose of more than 200 mg/dL in a nonstressed, ambulatory subject supports the diagnosis of Diabetes Mellitus. Serum or plasma potassium me asurement (moles/volume)on 11-05-2020 Potassium [Moles/Vol] 4.3 mmol/L 3.5-5.1 [facility] Serum or plasma sodium measu rement (moles/volume)on 11-05-2020 Sodium [Moles/Vol] 128 mmol/L 136-146 [facility] Serum or plasma total biliru bin measurement (mass/volume)on 11-05-2020 Bilirubin [Mass/Vol] 0.6 mg/dL 0.3-1.2 [facility] Serum or plasma total carbon dioxide measurement (moles/volume)on 11-05-2020 CO2 [Moles/Vol] 22.8 mmol/L 22.0-30.0 [facility] Serum or plasma urea nitroge n measurement (mass/volume)on 11-05-2020 Urea nitrogen [Mass/Vol] 10 mg/dL 9-23 [facility] Automated basophil %on 10-22 Basophils/100 WBC (Bld) 0.6 % [facility] Automated basophil counton 0 10-22-2020 Basophils (Bld) [#/Vol] 0.1 10*3/uL 0.0-0.2 [facility] Automated blood lymphocyte c ount (number/volume)on 10-22-2020 Lymphocytes (Bld) [#/Vol] 2.8 10*3/uL 1.00-4.8 [facility] Automated blood lymphocyte c ount as percentage of total leukocyteson 10-22-2020 Lymphocytes/100 WBC (Bld) 23.6 % [facility] Automated blood monocyte cou nton 10-22-2020 Monocytes (Bld) [#/Vol] 1.0 10*3/uL 0.0-0.8 [facility] Automated blood platelet cou nt (count/volume)on 10-22-2020 Platelets (Bld) [#/Vol] 292 10*3/uL 150-450 [facility] Automated blood platelet jett n volume measurementon 10-22-2020 Platelet mean volume (Bld) [Entitic vol] 9.4 fL 6.3-10.7 [facility] Automated eosinophil %on Eosinophils/100 WBC (Bld) 0.5 % [facility] Automated eosinophil counton 10-22-2020 Eosinophils (Bld) [#/Vol] 0.1 10*3/uL 0.0-0.45 [facility] Automated erythrocyte distri bution width ratioon 10-22-2020 Erythrocyte distribution width (RBC) [Ratio] 12.8 % 11.9-15.3 [facility] Automated erythrocyte mean c orpuscular hemoglobin (mass per erythrocyte)on 10-22-2020 MCH (RBC) [Entitic mass] 29.5 pg 24.7-34.3 [facility] Automated erythrocyte mean c orpuscular hemoglobin concentration measurement (mass/volon 10-22-2020 MCHC (RBC) [Mass/Vol] 32.9 g/dL 32.0-35.0 [facility] [place] Automated erythrocyte mean c orpuscular volumeon 10-22-2020 MCV (RBC) [Entitic vol] 89.6 fL 80-100 F [facility] [place] Automated monocyte %on 10-22 Monocytes/100 WBC (Bld) 8.7 % F [facility] [place] Automated neutrophil %on Neutrophils/100 WBC (Bld) 66.6 % [facility] Blood erythrocytes automated count (number/volume)on 10-22-2020 RBC (Bld) [#/Vol] 4.90 10*6/uL 3.60-5.00 [facility] Blood hemoglobin measurement (mass/volume)on 10-22-2020 Hemoglobin (Bld) [Mass/Vol] 14.5 g/dL 11.8-15.4 [facility] Blood leukocytes automated c ount (number/volume)on 10-22-2020 WBC (Bld) [#/Vol] 12.1 10*3/uL 3.8-11.6 [facility] Blood neutrophil count by au tomated method (number/volume)on 10-22-2020 Neutrophils (Bld) [#/Vol] 8.0 10*3/uL 1.8-7.7 [facility] Body fluid albumin measureme nt (mass/volume)on 10-22-2020 Albumin (Body fld) [Mass/Vol] 4.2 g/dL 3.2-5.5 [facility] Estimated glomerular filtrat ion rate (GFR) non- Americanon 10-22-2020 GFR/1.73 sq M predicted among non-blacks MDRD (S/P/Bld) [Vol rate/Area] mL/min/{1.73_m2} [facility] Hematocrit [Volume Fraction] of Blood by Automated counton 10-22-2020 Hematocrit (Bld) [Volume fraction] 43.9 % 34.0-46.4 [facility] Hematologyon 10-22-2020 Platelets (Bld) [#/Vol] Normal Normal F [facility] [place] Otheron 10-22-2020 25-Hydroxy Vitamin D Total 13.3 ng/mL 30-100 [facility] Comment on above: VITAMIN D STATUS 25( [place])VITAMIN D RANGE (ng/mL) Deficient <20 Insufficient 20 to <30Sufficient 30 to 100Reference: Jovanni MF,Dominique NC, Gillian NINA, et al. Evaluation,treatment, and prevention of vitamin D deficiency; an Endocrine Society clinical practice guideline. JCEM. 2010; 96(7):1911-30. Cobalamin (Vitamin B12) [Mass/Vol] 438 pg/mL 180-914 [facility] GFR/1.73 sq M.predicted MDRD (S/P/Bld) [Vol rate/Area] mL/min/{1.73_m2} [facility] Comment on above: GFR estimated refere nce range: According to KDOQI guidelines, <60 ml/min/1.73m2 is sufficient to diagnose a patient with chronic kidney disease. Nucleated RBC/100 WBC (Bld) [Ratio] 0.0 % 0-0.5 [facility] Pharmacy Creatinine Clearance (Chem N/A [facility] Platelet Morphology Comment Normal Normal [facility] Valproic Acid (Depakene) Level 108.9 ug/mL 50.0-100.0 [facility] Comment on above: Last dose: - Protein [Mass/volume] in Ser um or Plasmaon 10-22-2020 Protein [Mass/Vol] 7.1 g/dL 6.1-7.9 [facility] RBC morphologyon 10-22-2020 RBC morphology finding Nom (Bld) Normal [facility] Serum globulin measurement b y calculation (mass/volume)on 10-22-2020 Globulin (S) [Mass/Vol] 2.9 g/dL F [facility] [place] Serum or plasma alanine george otransferase measurement without P-5'-P (enzymatic activion 10-22-2020 ALT No additional P-5'-P [Catalytic activity/Vol] 13 U/L 10-60 [facility] Serum or plasma albumin/glob ulin mass ratioon 10-22-2020 Albumin/Globulin [Mass ratio] 1.4 {ratio} [facility] Serum or plasma alkaline lalo sphatase measurement (enzymatic activity/volume)on 10-22-2020 ALP [Catalytic activity/Vol] 53 U/L 32-92 [facility] Serum or plasma aspartate am inotransferase measurement (enzymatic activity/volume)on 10-22-2020 AST [Catalytic activity/Vol] 15 U/L 10-42 [facility] Serum or plasma calcium ashwini urement (mass/volume)on 10-22-2020 Calcium [Mass/Vol] 9.6 mg/dL 8.2-10.2 [facility] Serum or plasma chloride jett surement (moles/volume)on 10-22-2020 Chloride [Moles/Vol] 96 mmol/L 95-114 [facility] Serum or plasma creatinine m easurement with calculation of estimated glomerular filtron 10-22-2020 Creatinine [Mass/Vol] 0.54 mg/dL 0.44-1.03 [facility] [place] Serum or plasma glucose ashwini urement (mass/volume)on 10-22-2020 Glucose [Mass/Vol] 96 mg/dL 70-100 [facility] Comment on above: ADA recommended refe rence rangeRandom Glucose Reference Range is dependent on time and content of last meal. Glucose of more than 200 mg/dL in a nonstressed, ambulatory subject supports the diagnosis of Diabetes Mellitus. Serum or plasma potassium me asurement (moles/volume)on 10-22-2020 Potassium [Moles/Vol] 4.7 mmol/L 3.5-5.1 [facility] Serum or plasma sodium measu rement (moles/volume)on 10-22-2020 Sodium [Moles/Vol] 130 mmol/L 136-146 [facility] Serum or plasma total biliru bin measurement (mass/volume)on 10-22-2020 Bilirubin [Mass/Vol] 0.3 mg/dL 0.3-1.2 [facility] Serum or plasma total carbon dioxide measurement (moles/volume)on 10-22-2020 CO2 [Moles/Vol] 22.5 mmol/L 22.0-30.0 [facility] Serum or plasma urea nitroge n measurement (mass/volume)on 10-22-2020 Urea nitrogen [Mass/Vol] 5 mg/dL 9-23 [facility] Automated basophil %on 09-23 Basophils/100 WBC (Bld) 0.7 % F [facility] [place] Automated basophil counton 1 11-24-2019 Basophils (Bld) [#/Vol] 0.1 10*3/uL 0.0-0.2 [facility] Automated blood lymphocyte c ount (number/volume)on 09-23-2020 Lymphocytes (Bld) [#/Vol] 3.3 10*3/uL 1.00-4.8 [facility] Automated blood lymphocyte c ount as percentage of total leukocyteson 09-23-2020 Lymphocytes/100 WBC (Bld) 27.3 % [facility] Automated blood monocyte cou nton 09-23-2020 Monocytes (Bld) [#/Vol] 1.3 10*3/uL 0.0-0.8 [facility] Automated blood platelet cou nt (count/volume)on 09-23-2020 Platelets (Bld) [#/Vol] 299 10*3/uL 150-450 [facility] Automated blood platelet jett n volume measurementon 09-23-2020 Platelet mean volume (Bld) [Entitic vol] 8.3 fL 6.3-10.7 [facility] Automated eosinophil %on Eosinophils/100 WBC (Bld) 0.7 % [facility] Automated eosinophil counton 09-23-2020 Eosinophils (Bld) [#/Vol] 0.1 10*3/uL 0.0-0.45 [facility] Automated erythrocyte distri bution width ratioon 09-23-2020 Erythrocyte distribution width (RBC) [Ratio] 12.8 % 11.9-15.3 [facility] Automated erythrocyte mean c orpuscular hemoglobin (mass per erythrocyte)on 09-23-2020 MCH (RBC) [Entitic mass] 29.8 pg 24.7-34.3 [facility] Automated erythrocyte mean c orpuscular hemoglobin concentration measurement (mass/volon 09-23-2020 MCHC (RBC) [Mass/Vol] 33.4 g/dL 32.0-35.0 [facility] Automated erythrocyte mean c orpuscular volumeon 09-23-2020 MCV (RBC) [Entitic vol] 89.3 fL 80-100 F [facility] [place] Automated monocyte %on 09-23 Monocytes/100 WBC (Bld) 10.8 % F [facility] Automated neutrophil %on Neutrophils/100 WBC (Bld) 60.5 % [facility] Blood erythrocytes automated count (number/volume)on 09-23-2020 RBC (Bld) [#/Vol] 4.72 10*6/uL 3.60-5.00 [facility] Blood hemoglobin measurement (mass/volume)on 09-23-2020 Hemoglobin (Bld) [Mass/Vol] 14.1 g/dL 11.8-15.4 [facility] Blood leukocytes automated c ount (number/volume)on 09-23-2020 WBC (Bld) [#/Vol] 11.9 10*3/uL 3.8-11.6 [facility] Blood neutrophil count by au tomated method (number/volume)on 09-23-2020 Neutrophils (Bld) [#/Vol] 7.2 10*3/uL 1.8-7.7 [facility] Body fluid albumin measureme nt (mass/volume)on 09-23-2020 Albumin (Body fld) [Mass/Vol] 3.9 g/dL 3.2-5.5 [facility] Estimated glomerular filtrat ion rate (GFR) non- Americanon 09-23-2020 GFR/1.73 sq M predicted among non-blacks MDRD (S/P/Bld) [Vol rate/Area] mL/min/{1.73_m2} [facility] Hematocrit [Volume Fraction] of Blood by Automated counton 09-23-2020 Hematocrit (Bld) [Volume fraction] 42.1 % 34.0-46.4 [facility] Otheron 09-23-2020 25-Hydroxy Vitamin D Total 17.0 ng/mL 30-100 [facility] Comment on above: VITAMIN D STATUS 25( [place])VITAMIN D RANGE (ng/mL) Deficient <20 Insufficient 20 to <30Sufficient 30 to 100Reference: Jovanni MF,Dominique NC, Gillian NINA, et al. Evaluation,treatment, and prevention of vitamin D deficiency; an Endocrine Society clinical practice guideline. JCEM. 2010; 96(7):1911-30. GFR/1.73 sq M.predicted MDRD (S/P/Bld) [Vol rate/Area] mL/min/{1.73_m2} [facility] Comment on above: GFR estimated refere nce range: According to KDOQI guidelines, <60 ml/min/1.73m2 is sufficient to diagnose a patient with chronic kidney disease. Nucleated RBC/100 WBC (Bld) [Ratio] 0.1 % 0-0.5 [facility] Creatinine Clearance (Chem N/A [facility] Valproic Acid (Depakene) Level 45.9 ug/mL 50.0-100.0 [facility] Comment on above: Last dose: - Protein [Mass/volume] in Ser um or Plasmaon 09-23-2020 Protein [Mass/Vol] 6.7 g/dL 6.1-7.9 [facility] Serum globulin measurement b y calculation (mass/volume)on 09-23-2020 Globulin (S) [Mass/Vol] 2.8 g/dL F [facility] Serum or plasma alanine george otransferase measurement without P-5'-P (enzymatic activion 09-23-2020 ALT No additional P-5'-P [Catalytic activity/Vol] 15 U/L 10-60 [facility] Serum or plasma albumin/glob ulin mass ratioon 09-23-2020 Albumin/Globulin [Mass ratio] 1.4 {ratio} [facility] Serum or plasma alkaline lalo sphatase measurement (enzymatic activity/volume)on 09-23-2020 ALP [Catalytic activity/Vol] 52 U/L 32-92 [facility] Serum or plasma aspartate am inotransferase measurement (enzymatic activity/volume)on 09-23-2020 AST [Catalytic activity/Vol] 16 U/L 10-42 [facility] Serum or plasma calcium ashwini urement (mass/volume)on 09-23-2020 Calcium [Mass/Vol] 9.2 mg/dL 8.2-10.2 [facility] Serum or plasma chloride jett surement (moles/volume)on 09-23-2020 Chloride [Moles/Vol] 102 mmol/L 95-114 [facility] Serum or plasma creatinine m easurement with calculation of estimated glomerular filtron 09-23-2020 Creatinine [Mass/Vol] 0.67 mg/dL 0.44-1.03 [facility] Serum or plasma glucose ashwini urement (mass/volume)on 09-23-2020 Glucose [Mass/Vol] 122 mg/dL 70-100 [facility] Comment on above: ADA recommended refe rence rangeRandom Glucose Reference Range is dependent on time and content of last meal. Glucose of more than 200 mg/dL in a nonstressed, ambulatory subject supports the diagnosis of Diabetes Mellitus. Serum or plasma potassium me asurement (moles/volume)on 09-23-2020 Potassium [Moles/Vol] 4.8 mmol/L 3.5-5.1 [facility] Serum or plasma sodium measu rement (moles/volume)on 09-23-2020 Sodium [Moles/Vol] 136 mmol/L 136-146 [facility] Serum or plasma total biliru bin measurement (mass/volume)on 09-23-2020 Bilirubin [Mass/Vol] 0.2 mg/dL 0.3-1.2 [facility] Serum or plasma total carbon dioxide measurement (moles/volume)on 09-23-2020 CO2 [Moles/Vol] 23.0 mmol/L 22.0-30.0 [facility] Serum or plasma urea nitroge n measurement (mass/volume)on 09-23-2020 Urea nitrogen [Mass/Vol] 5 mg/dL 06-26 [facility] Lab - Other Lab [facility] - Other Lab Results [id number]#1.[facility] C[facility] Summaryon 06-27-2019 Coding Summary CODING DATE: [address] [facility] STATUS: Home PAYOR: Medicaid HMO ADMIT [...] Piña Revised Date Saved: 06/27/2019 12:43 pm [facility] Provider Orderson 06-27-2019 Provider Orders [id number]#1.00OTGTIFF [facility] Provider Orders [id number]#1.00OTGTIFF Normal [facility] .Auto Diff 1on 06-26-2019 Auto Parker % 9 % Normal 1-12 [facility] Comment on above: Performed By: #### 1 [id number], [id number] #### [facility] (DEFAULT) [address] [place] [address] 92730 Baso Abs# 0.0 x10 Normal 0.0-0.2 [facility] Comment on above: Performed By: #### 1 [id number], [id number] #### [facility] (DEFAULT) [address] [place] [address] 61263 Basophils/100 WBC (Bld) 0.3 % Normal 0.2-2.0 [facility] Comment on above: Performed By: #### 1 [id number], [id number] #### [facility] (DEFAULT) [address] [place] [address] 06563 Eos Abs# 0.0 x10 Normal 0.0-0.4 [facility] Comment on above: Performed By: #### 1 [id number], [id number] #### [facility] (DEFAULT) [address] [place] [address] 36160 Eosinophils/100 WBC (Bld) 0.4 % Low 0.9-4.0 [facility] Comment on above: Performed By: #### 1 [id number], [id number] #### [facility] (DEFAULT) [address] [place] [address] 40792 Lymphocytes (Bld) [#/Vol] 3.7 x10 High 1.3-2.9 [facility] Comment on above: Performed By: #### 1 [id number], [id number] #### [facility] (DEFAULT) [address] [place] [address] 97585 Lymphocytes/100 WBC (Bld) 29 % Normal 14-48 [facility] Comment on above: Performed By: #### 1 [id number], [id number] #### [facility] (DEFAULT) [address] [place] [address] 95663 Parker Abs# 1.2 x10 High 0.0-0.8 [facility] Comment on above: Performed By: #### 1 [id number], [id number] #### [facility] (DEFAULT) [address] [place] [address] 90425 Neut Abs# 7.7 x10 Normal 1.5-9.2 [facility] Comment on above: Performed By: #### 1 [id number], [id number] #### [facility] (DEFAULT) [address] [place] [address] 32058 Neutrophils/100 WBC (Bld) 61 % Normal 44-88 [facility] Comment on above: Performed By: #### 1 [id number], [id number] #### [facility] (DEFAULT) [address] [place] [address] 34708 CBC w/ Auto Diffon 9 Erythrocyte distribution width (RBC) [Ratio] 14.0 % Normal 11.5-15.0 [facility] Comment on above: Performed By: #### 1 [id number], [id number] #### [facility] (DEFAULT) [address] [place] [address] Hematocrit (Bld) [Volume fraction] 44.8 % High 33.7-40.4 [facility] Comment on above: Performed By: #### 1 [id number], [id number] #### [facility] (DEFAULT) [address] [place] [address] 14810 Hemoglobin (Bld) [Mass/Vol] 15.1 g/dL Normal 11.3-15.9 [facility] Comment on above: Performed By: #### 1 [id number], [id number] #### [facility] (DEFAULT) [address] [place] [address] 73357 Man Diff? Auto Normal [facility] Comment on above: Performed By: #### 1 [id number], [id number] #### [facility] (DEFAULT) [address] [place] [address] 39220 MCH (RBC) [Entitic mass] 30 pg Normal 24-34 [facility] Comment on above: Performed By: #### 1 [id number], [id number] #### [facility] (DEFAULT) [address] [place] [address] 86143 MCHC (RBC) [Mass/Vol] 34 g/dL Normal 26-37 [facility] Comment on above: Performed By: #### 1 [id number], [id number] #### [facility] (DEFAULT) [address] [place] [address] 62882 MCV (RBC) [Entitic vol] 89 fL Normal 81-100 [facility] Comment on above: Performed By: #### 1 [id number], [id number] #### [facility] (DEFAULT) [address] [place] [address] 13523 Platelet mean volume (Bld) [Entitic vol] 9.5 fL Normal 6.3-10.2 [facility] Comment on above: Performed By: #### 1 [id number], [id number] #### [facility] (DEFAULT) [address] [place] [address] 02082 Platelets (Bld) [#/Vol] 301 x10 Normal 138-427 [facility] Comment on above: Performed By: #### 1 [id number], [id number] #### [facility] (DEFAULT) [address] [place] [address] 01606 RBC (Bld) [#/Vol] 5.04 x10 Normal 3.70-5.30 [facility] Comment on above: Performed By: #### 1 [id number], [id number] #### [facility] (DEFAULT) [address] [place] [address] 93836 WBC (Bld) [#/Vol] 12.6 x10 [facility] Comment on above: Performed By: #### 1 [id number], [id number] #### [facility] (DEFAULT) [address] [place] [address] Lab - Other [facility] - Other Lab Results [id number]#1.00OTGTIFF Normal [facility] Outside Recordson 05-16-2019 Outside Records [id number]#1.00OTGTIFF Normal [facility] Outside Records [id number]#1.[facility] Normal [facility] Vital Signs Date Time Vital Sign Value Performing Clinician Facility 10-16-2023 13:00-0500 Diastolic blood pressure 94 mm[Hg] TIRE [facility] Ajit Spasic Work Phone: [facility] 10-16-2023 13:00-0500 Heart rate 70 /min [facility] Ajit Spasic Work Phone: [facility] 10-16-2023 13:00-0500 Respiratory rate 16 /min [facility] Ajit Spasic Work Phone: [facility] 10-16-2023 13:00-0500 SaO2% (BldA) [Mass fraction] 97 % [facility] Ajit Spasic Work Phone: [facility] 10-16-2023 13:00-0500 Systolic blood pressure 168 mm[Hg] [facility] Ajit Spasic Work Phone: [facility] 10-16-2023 09:33-0500 Body height 165.1 cm [facility] Ajit Spasic Work Phone: [facility] 10-16-2023 09:33-0500 Body temperature 97.4 [degF] [facility] Ajit Spasic Work Phone: [facility] 10-16-2023 09:33-0500 Body weight 77.3 kg [facility] Ajit Spasic Work Phone: [facility] 10-09-2023 16:00-0500 Body temperature 97.7 [degF] [facility] Ajit Spasic Work Phone: [facility] 10-09-2023 16:00-0500 Diastolic blood pressure 80 mm[Hg] [facility] Ajit Spasic Work Phone: [facility] 10-09-2023 16:00-0500 Heart rate 85 /min [facility] Ajit Spasic Work Phone: [facility] 10-09-2023 16:00-0500 Respiratory rate 18 /min [facility] Ajit Spasic Work Phone: [facility] 10-09-2023 16:00-0500 SaO2% (BldA) [Mass fraction] 99 % [facility] Ajit Spasic Work Phone: [facility] 10-09-2023 16:00-0500 Systolic blood pressure 117 mm[Hg] [facility] Ajit Spasic Work Phone: [facility] 10-08-2023 01:12-0500 Body height 165.1 cm [facility] Ajit Spasic Work Phone: [facility] 10-08-2023 01:12-0500 Body weight 76.65 kg [facility] Ajit Spasic Work Phone: [facility] 09-28-2023 13:30-0500 Diastolic blood pressure 87 mm[Hg] [facility] Ajit Spasic Work Phone: [facility] 09-28-2023 13:30-0500 Heart rate 94 /min [facility] Ajit Spasic Work Phone: [facility] 09-28-2023 13:30-0500 Respiratory rate 18 /min [facility] Ajit Spasic Work Phone: [facility] 09-28-2023 13:30-0500 SaO2% (BldA) [Mass fraction] 94 % [facility] Ajit Spasic Work Phone: [facility] 09-28-2023 13:30-0500 Systolic blood pressure 131 mm[Hg] [facility] Ajit Spasic Work Phone: [facility] 09-28-2023 09:30-0500 Body temperature 97.9 [degF] [facility] Ajit Spasic Work Phone: [facility] 09-28-2023 08:51-0500 Inhaled oxygen flow rate 10 L/min [facility] Ajit Spasic Work Phone: [facility] 09-28-2023 07:20-0500 Body height 166.37 cm [facility] Ajit Spasic Work Phone: [facility] 09-28-2023 07:20-0500 Body mass index (BMI) [Ratio] 27.7 kg/m2 [facility] Ajit Spasic Work Phone: [facility] 09-28-2023 07:20-0500 Body weight 76.7 kg [facility] Ajit Spasic Work Phone: [facility] 07-13-2023 13:55-0400 Diastolic blood pressure 93 mm[Hg] NA [employer] Work Phone: [facility] 07-13-2023 13:55-0400 Heart rate 87 /min NA [employer] Work Phone: [facility] 07-13-2023 13:55-0400 Respiratory rate 16 /min NA [employer] Work Phone: [facility] 07-13-2023 13:55-0400 SaO2% (BldA) [Mass fraction] 96 % NA [employer] Work Phone: [facility] 07-13-2023 13:55-0400 Systolic blood pressure 133 mm[Hg] NA [employer] Work Phone: [facility] 07-13-2023 13:16-0400 Body temperature 98 [degF] NA [employer] Work Phone: [facility] 07-13-2023 12:51-0400 Inhaled oxygen flow rate 10 L/min NA [employer] Work Phone: [facility] 07-13-2023 12:17-0400 Body height 165.1 cm NA [employer] Work Phone: [facility] 07-13-2023 12:17-0400 Body mass index (BMI) [Ratio] 28.2 kg/m2 NA [employer] Work Phone: [facility] 07-13-2023 12:17-0400 Body weight 77 kg NA [employer] Work Phone: [facility] 05-05-2023 10:18-0400 Diastolic blood pressure 90 mm[Hg] [facility] Ajit Spasic Work Phone: [facility] 05-05-2023 10:18-0400 Heart rate 82 /min [facility] Ajit Spasic Work Phone: [facility] 05-05-2023 10:18-0400 Respiratory rate 18 /min [facility] Ajit Spasic Work Phone: [facility] 05-05-2023 10:18-0400 SaO2% (BldA) [Mass fraction] 98 % [facility] Ajit Spasic Work Phone: [facility] 05-05-2023 10:18-0400 Systolic blood pressure 130 mm[Hg] [facility] Ajit Spasic Work Phone: [facility] 05-05-2023 09:39-0400 Inhaled oxygen flow rate 3 L/min [facility] Ajit Spasic Work Phone: [facility] 05-05-2023 08:43-0400 Body height 165.1 cm [facility] Ajit Spasic Work Phone: [facility] 05-05-2023 08:43-0400 Body weight 74.84 kg [facility] Ajit Spasic Work Phone: [facility] 04-14-2023 12:08-0400 Diastolic blood pressure 89 mm[Hg] [facility] Ajit Spasic Work Phone: [facility] 04-14-2023 12:08-0400 Heart rate 71 /min [facility] Aijt Spasic Work Phone: [facility] 04-14-2023 12:08-0400 Respiratory rate 16 /min [facility] Ajit Spasic Work Phone: [facility] 04-14-2023 12:08-0400 SaO2% (BldA) [Mass fraction] 97 % [facility] Ajit Spasic Work Phone: [facility] 04-14-2023 12:08-0400 Systolic blood pressure 124 mm[Hg] [facility] Ajit Spasic Work Phone: [facility] 04-14-2023 11:29-0400 Inhaled oxygen flow rate 3 L/min [facility] Ajit Spasic Work Phone: [facility] 04-14-2023 10:19-0400 Body height 165.1 cm [facility] Ajit Spasic Work Phone: [facility] 04-14-2023 10:19-0400 Body weight 74.84 kg [facility] Ajit Spasic Work Phone: [facility] 04-02-2023 11:30-0400 Body height 166.37 cm Kyler Miramontes Other [employer] Other 04-02-2023 11:30-0400 Body mass index (BMI) [Ratio] 27.04 kg/m2 Kyler Miramontes Other [facility] Other 04-02-2023 11:30-0400 Body weight 74.84 kg Kyler Miramontes Other [facility] Other 04-02-2023 11:30-0400 Diastolic blood pressure 80 mm[Hg] Kyler Miramontes Other [facility] Other 04-02-2023 11:30-0400 Systolic blood pressure 110 mm[Hg] Kyler Miramontes Other [facility] Other 11-18-2022 11:59-0500 Diastolic blood pressure 94 mm[Hg] Services [facility] Work Phone: [facility] 11-18-2022 11:59-0500 Heart rate 85 /min Services [facility] [employer] Work Phone: [facility] 11-18-2022 11:59-0500 Respiratory rate 16 /min Services [facility] [employer] Work Phone: [facility] 11-18-2022 11:59-0500 SaO2% (BldA) [Mass fraction] 98 % Services [facility] [employer] Work Phone: [facility] 11-18-2022 11:59-0500 Systolic blood pressure 140 mm[Hg] Services [facility] [employer] Work Phone: [facility] 11-18-2022 11:21-0500 Inhaled oxygen flow rate 3 L/min Services [facility] [employer] Work Phone: [facility] 11-18-2022 09:23-0500 Body height 166.37 cm Services [facility] [employer] Work Phone: [facility] 11-18-2022 09:23-0500 Body weight 74.38 kg Services [facility] [employer] Work Phone: [facility] 11-03-2022 11:30-0500 Body height 166.37 cm Kyler Miramontes Other [employer] Other 11-03-2022 11:30-0500 Diastolic blood pressure 80 mm[Hg] Kyler Miramontes Other [facility] Other 11-03-2022 11:30-0500 SaO2% (BldA) [Mass fraction] 98 % Kyler Miramontes Other [facility] Other 11-03-2022 11:30-0500 Systolic blood pressure 118 mm[Hg] Kyler Miramontes Other [facility] Other 07-31-2022 11:50-0400 Blood Pressure Location [employer] [facility] 07-31-2022 11:50-0400 Diastolic blood pressure 82 mm[Hg] [employer] [facility] 07-31-2022 11:50-0400 Heart rate 70 /min [employer] [facility] 07-31-2022 11:50-0400 Respiratory rate 16 /min [employer] [facility] 07-31-2022 11:50-0400 Systolic blood pressure 136 mm[Hg] [employer] [facility] 05-27-2022 09:13-0400 Body temperature 97.9 [degF] Services [facility] [email or web address] Work Phone: [facility] 05-27-2022 09:13-0400 Body weight 77.11 kg Services [facility] [email or web address] Work Phone: [facility] 05-27-2022 09:13-0400 Diastolic blood pressure 82 mm[Hg] Services [facility] [email or web address] Work Phone: [facility] 05-27-2022 09:13-0400 Heart rate 70 /min Services [facility] [email or web address] Work Phone: [facility] 05-27-2022 09:13-0400 Respiratory rate 20 /min Services [facility] [employer] Work Phone: [facility] 05-27-2022 09:13-0400 SaO2% (BldA) [Mass fraction] 98 % Services [facility] [employer] Work Phone: [facility] 05-27-2022 09:13-0400 Systolic blood pressure 121 mm[Hg] [facility] Work Phone: [facility] 05-27-2022 08:06-0400 Body height 166.37 cm [facility] Work Phone: [facility] 05-01-2022 22:19-0400 Diastolic blood pressure 70 mm[Hg] Services [facility] Work Phone: [facility] 05-01-2022 22:19-0400 Heart rate 86 /min Services [facility] Work Phone: [facility] 05-01-2022 22:19-0400 Respiratory rate 18 /min Services [facility] Work Phone: [facility] 05-01-2022 22:19-0400 SaO2% (BldA) [Mass fraction] 99 % Services [facility] Work Phone: [facility] 05-01-2022 22:19-0400 Systolic blood pressure 138 mm[Hg] Services [facility] Work Phone: [facility] 05-01-2022 17:09-0400 Body height 166.37 cm Services [facility] Work Phone: [facility] 05-01-2022 17:09-0400 Body temperature 99.4 [degF] Services [facility] Work Phone: [facility] 05-01-2022 17:09-0400 Body weight 77.8 kg Services [facility] Work Phone: [facility] 04-29-2022 14:29-0400 Body height 165.1 cm Services [facility] Work Phone: [facility] 04-29-2022 14:29-0400 Body temperature 97.8 [degF] Services [facility] Work Phone: [facility] 04-29-2022 14:29-0400 Body weight 68.03 kg Services [facility] Work Phone: [facility] 04-29-2022 14:29-0400 Diastolic blood pressure 83 mm[Hg] Services [facility] Work Phone: [facility] 04-29-2022 14:29-0400 Heart rate 70 /min Services [facility] [employer] Work Phone: [facility] 04-29-2022 14:29-0400 Respiratory rate 16 /min Services [facility] [employer] Work Phone: [facility] 04-29-2022 14:29-0400 SaO2% (BldA) [Mass fraction] 100 % Services [facility] [employer] Work Phone: [facility] 04-29-2022 14:29-0400 Systolic blood pressure 131 mm[Hg] Services [facility] [employer] Work Phone: [facility] 02-19-2022 15:45-0400 Body height 166.37 cm Kyler Miramontes Other [facility] Other 02-19-2022 15:45-0400 Body mass index (BMI) [Ratio] 27.36 kg/m2 Kylerjocelyn Miramontes Other [employer] Other 02-19-2022 15:45-0400 Body weight 75.75 kg Kyler Miramontes Other [employer] Other 02-19-2022 15:45-0400 Diastolic blood pressure 64 mm[Hg] Kylerjocelyn Miramontes Other [facility] Other 02-19-2022 15:45-0400 Systolic blood pressure 110 mm[Hg] Klyerjocelyn Miramontes Other [facility] Other 01-28-2022 14:00-0400 Body height 166.37 cm Kyler Miramontes Other [facility] Other 01-28-2022 14:00-0400 Body mass index (BMI) [Ratio] 27.27 kg/m2 Kyler Miramontes Other [facility] Other 01-28-2022 14:00-0400 Body weight 75.48 kg Kyler Miramontes Other [facility] Other 01-28-2022 14:00-0400 Diastolic blood pressure 68 mm[Hg] Kyler Miramontes Other [facility] Other 01-28-2022 14:00-0400 Systolic blood pressure 112 mm[Hg] Kyler Miramontes Other [facility] Other 01-14-2022 12:00-0400 Body height 166.37 cm Girish Elsdeb Other [employer] Other 01-14-2022 12:00-0400 Body mass index (BMI) [Ratio] 25.23 kg/m2 Girish Okeefedeb Other [facility] Other 01-14-2022 12:00-0400 Body weight 69.85 kg Girish Okeefedeb Other [employer] Other Encounters Encounter Date Encounter Type Care Provider Facility Start: 10-20-2023 End: 10-20-2023 ambulatory CARRI A VISCI Not Available Start: 10-16-2023 End: 10-16-2023 Emergency department patient visit Diego Noble Facility:[facility] Start: 10-16-2023 End: 10-16-2023 Emergency department patient visit OLEG Pettit Work Phone: [facility]Emer[facility] Work Phone: Start: 10-08-2023 End: 10-09-2023 Evaluation and management of inpatient Salazar Cabrera Facility:[facility] Start: 10-07-2023 End: 10-09-2023 Evaluation and management of inpatient TIRE [facility]-C Ajit Spasic Work Phone: [facility] Work Phone: Start: 09-28-2023 End: 09-28-2023 ambulatory Ajit E Spasic Facility:[facility] Start: 09-28-2023 End: 09-28-2023 Admission to same day surgery center [facility] Ajit Spasic Work Phone: [facility] [place] Start: 09-16-2023 End: 09-16-2023 ambulatory Ajit E Spasic Facility:[facility] Start: 09-16-2023 End: 09-16-2023 ambulatory TIRE [facility]-C Ajit E Spasic Work Phone: [facility] Work Phone: Start: 09-16-2023 End: 09-16-2023 Patient encounter procedure TIRE [facility]-C Ajit Spasic Work Phone: [facility]-Pre-Surgical Testing Work Phone: Start: 07-13-2023 End: 07-13-2023 ambulatory Ajit E Spasic Facility:[facility] Start: 07-13-2023 End: 07-13-2023 Admission to same day surgery center NA [employer] Work Phone: [facility] [place] Start: 07-13-2023 End: 07-13-2023 ambulatory . [employer] Work Phone: [facility] Work Phone: Start: 06-30-2023 End: 06-30-2023 ambulatory Ajit E Spasic Facility:[facility] Start: 06-30-2023 End: 06-30-2023 ambulatory . [employer] Work Phone: [facility] Work Phone: Start: 06-30-2023 End: 06-30-2023 Patient encounter procedure NA [employer] Work Phone: [facility] Work Phone: Start: 05-05-2023 (PROC) PROCEDURE [facility] Start: 05-05-2023 End: 05-05-2023 Admission to same day surgery center TIRE CURER-C Ajit Spasic Work Phone: [facility] Work Phone: Start: 05-05-2023 End: 05-05-2023 ambulatory NON STAFF [facility] Work Phone: Start: 05-04-2023 End: 05-04-2023 ambulatory Ajit E Spasic Facility:[facility] Start: 05-04-2023 End: 05-04-2023 ambulatory NON STAFF [facility] Work Phone: Start: 05-04-2023 End: 05-04-2023 Departed Referred TIRE CURER-C Ajit Spasic Work Phone: [facility] Start: 04-26-2023 End: 04-26-2023 ambulatory Ajit E Spasic Facility:[facility] Start: 04-26-2023 End: 04-26-2023 Patient encounter procedure TIRE CURER-C Ajit Spasic Work Phone: [facility] [place] Work Phone: Start: 04-14-2023 (PROC) PROCEDURE [facility] Medical OutPt Start: 04-14-2023 End: 04-14-2023 Admission to same day surgery center TIRE CURER-C Ajit Spasic Work Phone: [facility] Work Phone: Start: 04-14-2023 End: 04-14-2023 ambulatory NON STAFF [facility] Other Start: 04-02-2023 End: 04-02-2023 ambulatory Kyler Miramontes Other [facility] Other Start: 04-02-2023 Office outpatient vi sit 25 minutes Kyler Miramontes [facility] Start: 02-15-2023 End: 02-15-2023 ambulatory AJIT SPASIC Facility:[facility] Start: 02-09-2023 End: 02-09-2023 ambulatory Ajit E Spasic Facility:[facility] Start: 02-09-2023 End: 02-09-2023 ambulatory [facility] Work Phone: [facility] Work Phone: Start: 02-09-2023 End: 02-09-2023 Departed Referred Services [facility] Work Phone: [facility] [facility] Start: 01-29-2023 End: 01-29-2023 ambulatory AJIT SPASIC Facility:[facility] Start: 12-29-2022 ambulatory Joshua Roselyn PRESTON Facility :[facility] Start: 11-18-2022 (PROC) PROCEDURE Kyler Miramontes [facility] Medical OutPt Start: 11-18-2022 End: 11-18-2022 Admission to same day surgery center Services [facility] Work Phone: [facility] Work Phone: Start: 11-18-2022 End: 11-18-2022 ambulatory Services [facility] Work Phone: [facility] Work Phone: Start: 11-12-2022 End: 11-12-[address] DERICK BORRERO . Facility:[facility] Start: 11-05-2022 End: 11-05-2022 ambulatory Services [facility] Facility:[facility] Start: 11-05-2022 End: 11-05-2022 ambulatory Services [facility] Work Phone: [facility] Work Phone: Start: 11-05-2022 End: 11-05-2022 Departed Referred Services [facility] Work Phone: [facility] Start: 11-03-2022 Office outpatient vi sit 25 minutes Kylerjocelyn Miramontes [facility] Start: 11-03-2022 End: 11-03-[address] [facility] [employer] Other Start: 11-03-2022 End: 11-03-2022 Patient encounter procedure Services [facility] Work Phone: [facility]-XRay [facility] Work Phone: Start: 11-02-2022 End: 11-03-2022 ambulatory Joshua PRESTON Facility: [facility] Start: 11-02-2022 End: 11-02-2022 Patient encounter procedure Joshua PRESTON [facility] Start: 09-29-2022 End: 09-30-2022 ambulatory Joshua PRESTON Facility: [facility] Start: 09-29-2022 End: 09-29-2022 Patient encounter procedure Joshua PRESTON [facility] Start: 08-24-2022 End: 08-25-2022 ambulatory Joshua PRESTON Facility:[facility] Start: 08-24-2022 End: 08-24-2022 Patient encounter procedure Joshua PRESTON [facility] Start: 07-31-2022 End: 08-01-2022 ambulatory BELTRAN PAVON Facility: [place] Start: 07-31-2022 End: 07-31-2022 Patient encounter procedure Joshua PRESTON [facility] Start: 07-08-2022 End: 07-08-2022 ambulatory Services [facility] Work Phone: [facility] Work Phone: Start: 07-08-2022 End: 07-08-2022 Patient encounter procedure [facility] Work Phone: [facility] [place] Start: 06-24-2022 End: 06-24-2022 Patient encounter procedure [facility] Work Phone: [facility] [place] Start: 06-17-2022 End: 06-17-2022 Patient encounter procedure [facility] Work Phone: [facility] [place] Start: 06-09-2022 End: 06-09-2022 Patient encounter procedure Services [facility] Work Phone: [facility] [place] Start: 06-02-2022 End: 06-02-2022 Departed Referred Services [facility] Work Phone: [facility] Start: 05-27-2022 End: 05-27-2022 Registered Recurring Services [facility] Work Phone: [facility] Start: 05-07-2022 End: 05-07-2022 Patient encounter procedure [facility] Work Phone: [facility] [place] Start: 05-01-2022 End: 05-01-2022 Emergency department patient visit Services [facility] Work Phone: [facility]-Emergency Room Start: 05-01-2022 End: 05-01-2022 Patient encounter procedure [facility] Work Phone: [facility] [place] Start: 04-30-2022 End: 04-30-2022 Departed Referred Services [facility] Work Phone: [facility] Start: 04-29-2022 End: 04-29-2022 Emergency department patient visit [facility] Work Phone: [facility] Start: 03-04-2022 (Procedure) Jaxon Miramontes [employer] [facility] Start: 03-04-2022 End: 03-04-2022 ambulatory Kyler Miramontes Other [facility] Other Start: 02-19-2022 End: 02-19-2022 ambulatory Kyler Miramontes Other [facility] Other Start: 02-19-2022 Office outpatient vi sit 25 minutes Kyler Fe [facility] Start: 02-11-2022 (Procedure) Jaxon Pugh ands [facility] Start: 02-11-2022 End: 02-11-2022 ambulatory Kyler Miramontes Other [facility] Other Start: 01-28-2022 End: 01-28-2022 ambulatory Kyler Miramontes Other [facility] Other Start: 01-28-2022 Office consultation new/estab patient 60 min Kyler Fe [facility] Start: 01-14-2022 End: 01-14-2022 ambulatory Girish Callaway Other [facility] Other Start: 01-14-2022 Office outpatient ne w 30 minutes Girish Callaway [facility] Start: 01-21-2021 End: 01-21-2021 Departed Referred Services [facility] Work Phone: [facility] [facility] Start: 12-24-2020 End: 12-24-2020 Patient encounter procedure Ajit Spasic -[facility] [place] Start: 12-03-2020 End: 12-03-2020 Patient encounter procedure Ajit Spasic -[facility] [place] Start: 12-02-2020 End: 12-02-2020 Patient encounter procedure Ajit Spasic [facility] [place] Start: 11-05-2020 End: 11-05-2020 Departed Referred Ajit Krupa [facility] Start: 10-22-2020 End: 10-22-2020 Patient encounter procedure Ajit Lariosness [facility] Start: 09-23-2020 End: 09-23-2020 Patient encounter procedure Ajit Lariosness -Lab [facility] Procedures Date Procedure Procedure Detail Performing Clinician Start: 10-09-2023 Stool culture for bacteria TIRE CURER-C Ajit Lariosness Work Phone: Start: 10-08-2023 Computed tomography of abdomen and pelvis with contrast TIRE CURER-C Ajit Millanderek Work Phone: Start: 09-28-2023 Total hysterectomy v ia vaginal approach TIRE CURER-C Ajit Lariosness Work Phone: Start: 09-16-2023 Antibody screen Ajit Carlos savanna Comment on above: Order Comment: Date of Surgery: [id number] Result Comment: PERF ORMED BY: [facility] [address] [place] [address] PATHOLOGIST [employer] RIDGE HUERTA M.D. Start: 07-13-2023 Hysteroscopy NA [facility] Work Phone: Start: 06-30-2023 Antibody screen Ajit corrales Comment on above: Order Comment: Date of Surgery: [id number] Result Comment: PERF ORMED BY: [facility] [address] [place] [address] PATHOLOGIST [employer] RIDGE HUERTA M.D. Start: 05-05-2023 Injection of local a nesthetic into sacroiliac joint TIRE CURER-C Ajit Pettit Work Phone: Start: 05-04-2023 Urine culture [facility] Work Phone: Start: 04-26-2023 Radiography of thoracic spine TIRE CURER-C Ajit Millanc Work Phone: Start: 04-14-2023 Epidural injection o f lumbar spine using fluoroscopic guidance TIRE CURER-C Ajit Lariossic Work Phone: Start: 02-09-2023 Urine culture TIRE CURER-C Piero a Spasic Work Phone: Start: 11-18-2022 Injection of spinal epidural space Services [facility] [employer] Work Phone: Start: 11-05-2022 Urine culture Services [facility] [employer] Work Phone: Start: 11-03-2022 X-ray of cervical spine Services [facility] [employer] Work Phone: Start: 08-24-2022 Cystourethroscopy wi th dilation of urethral stricture Joshua PRESTON Start: 06-24-2022 MRI of head Services [facility] [employer] Work Phone: Start: 06-17-2022 Transvaginal echography Services [facility] [employer] Work Phone: Start: 06-17-2022 Pelvic echography Servi sharri [facility] [employer] Work Phone: Start: 06-09-2022 US scan of bladder Serv ices [facility] [employer] Work Phone: Start: 05-01-2022 Computed tomography of abdomen and pelvis with contrast Services [facility] [employer] Work Phone: Start: 05-01-2022 X-ray of right knee Ser [facility] [employer] Work Phone: Start: 04-29-2022 X-ray of left ankle Ser [facility] [employer] Work Phone: Start: 12-24-2020 MRI of left [...] for ba cteria, including anaerobic screen Services [facility] [employer] Work Phone: Blood culture for ba cteria, including anaerobic screen Services [facility] Work Phone: Cholecystectomy Joshua PRESTON H/O: hysterectomy S/P hysterectomy TIRE CURER-C L aura Spasic Work Phone: Urine culture Services [facility] Work Phone: Plan of Treatment Date Care Activity Detail Author Start: 10-16-2023 Bacteria identified in Blood by Culture [facility] Start: 10-16-2023 [facility] Start: 10-09-2023 Stool culture Stool Culture [facility] Start: 10-09-2023 [facility] Start: 10-09-2023 Referral to clinical staff educator [facility] Start: 10-08-2023 Hospital admission [facility] Start: 10-08-2023 [facility] Start: 10-07-2023 Referral to clinical continuum of care manager [facility] Start: 09-28-2023 Hospital admission [facility] Start: 09-28-2023 [facility] Start: 07-13-2023 End: 07-13-2023 [facility] Start: 05-05-2023 [facility] Start: 05-04-2023 Bacteria identified in Urine by Culture Urine Culture [facility] Start: 05-04-2023 Urine culture Urine Culture [facility] Start: 04-14-2023 [facility] Start: 02-09-2023 Bacteria identified in Urine by Culture [facility] Start: 11-18-2022 [facility] Start: 11-05-2022 Bacteria identified in Urine by Culture [facility] Start: 06-02-2022 End: 06-02-2022 Departed Referred Departed Referred [facility] Services Start: 05-27-2022 Registered Recurring Iron deficiency [facility] Start: 05-27-2022 [facility] Start: 05-07-2022 End: 05-07-2022 Patient encounter procedure Departed Clinical [facility] [place] Start: 05-01-2022 Computed tomography of abdomen and pelvis with contrast CT abdomen pelvis w con [facility] Start: 05-01-2022 End: 05-01-2022 Emergency department patient visit Departed Emergency [facility] Atopobiclive vaginae DN A [Presence] in Vaginal fluid by NAYELY with probe detection [facility] Bacterial vaginosis associated bacterium 2 DNA [Presence] in Vaginal fluid by NAYELY with probe detection [facility] Chlamydia trachomati s rRNA [Presence] in Cervix by NAYELY with probe detection [facility] Glucose measurement estimated from glycated hemoglobin [facility] Hemoglobin A1c/Hemoglobin.total in Blood [facility] Human papilloma viru s 16+18+31+33+35+39+45+51+5 2+56+58+59+66+68 DNA [Presence] in Cervix by Probe with signal amplification [facility] Human papilloma viru s 16+18+31+33+35+39+45+51+5 2+56+58+59+68 DNA [Presence] in Cervix by Probe with signal amplification [facility] Megasphaera sp type 1 DNA [Presence] in Vaginal fluid by NAYELY with probe detection [facility] Neisseria gonorrhoea e rRNA [Presence] in Cervix by NAYELY with probe detection [facility] Patient Education [facility] Work Phone: Patient referral [facility] Work Phone: [facility] Immunizations Immunization Date Immunization Notes Care Provider Jaret mitchell 09-19-2021 COVID-19 mRNA, Comirnaty (Pfizer) NA [facility] Work Phone: [facility] 08-29-2021 COVID-19 mRNA, Comirnaty (Pfizer) NA [facility] Work Phone: [facility] NEGATED: Highlighted row has not occurred!10-27-2019 influenza virus vaccine, live, attenuated, for intranasal use Joshua PRESTON [facility] Payers Date Payer Category Payer Self-pay [id number] 2019 Unknown [id number] 1979 Unknown [id number] 2.16.8 40.1.322021.3.579.2.727 1979 Unknown [id number] 2.16.8 40.1.219649.3.579.2.727 1979 Unknown [id number] 2.16.8 40.1.886928.3.579.2.727 1979 Unknown [id number] 2.16.8 40.1.773443.3.579.2.727 1979 Unknown [id number] 2.16.8 40.1.233565.3.579.2.727 1979 Unknown [id number] 2.16.84 0.1.514390.3.579.2.593 1979 Unknown [id number] 2.16.84 0.1.990939.3.579.2.593 1979 Unknown [id number] 2.16.84 0.1.844734.3.579.2.593 1979 Unknown [id number] 2.16.84 0.1.327093.3.579.2.1259 1959 Medicaid [id number] 50 [id number] Unknown [id number] Unknown [id number] 2.16.8 40.1.977528.3.579.2.531 Unknown [id number] 2.16.8 40.1.763019.3.579.2.531 Unknown [id number] 2.16.8 40.1.223664.3.579.2.531 Unknown [id number] 2.16.8 40.1.032906.3.579.2.531 Unknown [id number] 2.16.8 40.1.198727.3.579.2.531 Unknown [id number] 2.16.8 40.1.235316.3.579.2.531 Unknown [id number] 2.16.8 40.1.672618.3.579.2.531 Unknown [id number] 2.16.8 40.1.007890.3.579.2.531 Unknown [id number] 2.16.8 40.1.196342.3.579.2.531 Unknown [id number] 2.16.8 40.1.194783.3.579.2.531 Unknown [id number] 2.16.8 40.1.820151.3.579.2.531 Unknown [id number] 2.16.8 40.1.197934.3.579.2.531 Unknown [id number] 2.16.8 40.1.160589.3.579.2.531 Unknown [id number] 2.16.8 40.1.074818.3.579.2.531 Social History Date Type Detail Facility Start: 09-25-2019 End: 10-16-2023 Tobacco smoking status NHIS Smoker (finding) [facility] Start: 1980 Sex Assigned At Female F [facility] Sex Assigned At [facility] Start: 07-31-2022 Tobacco smoking status Heavy t obacco smoker (finding) [facility] Goals Date Patient Goal Desired Activity /State Functional Status Date Assessment Result Facility 10-09-2023 Functional status Patient at Baseline [facility] Work Phone: 11-02-2022 Functional Status N/A [facility] 08-24-2022 Functional Status N/A [facility] 07-31-2022 Functional Status N/A [facility] Mental Status Date Assessment Result Facility 10-09-2023 Cognitive function Cognitive Sta tus Patient at Baseline [facility] Work Phone: Clinical Notes 01-14-2022 to 10-09-2023 Note Date & Type Note Facility 10-09-2023 Discharge summary Note Date/Time October 09, 2023 1:22pm [facility] [address] [id number] Discharge Summary Signed Patient: Rachel Mcgarry MR#: [id number] : 1980 Acct:[id number] Age/Sex: 43 / F Adm Date: 4 Loc: Room: [address] [place] [address]: Salazar Cabrera DO Copies to: OLEG Sharp APRN Shawn J Warner, DO~ Providers Date of Admission: 10/08/23 Date of Discharge: 10/09/23 Discharging Provider: Salazar Cabrera Additional Discharging Provider: Salazar Cabrera Primary Care Provider: Ajit Pettit Consults: 10/07/23 23:27 Consult to Adult Hospitalist Routine 10/08/23 07:21 Consult to doping supervisor Routine 10/09/23 06:50 Consult to Obstetrics Routine [...] abdominal pain. CT abdomen pelvis done at [facility] showed nonspecific hyperemia and thickening of the small bowel distally suggestive of enteritis but nonacute otherwise and no postoperative complications were noted. She was transferred to [facility] for evaluation by recent surgical team. She was noted to have elevated lactate and given IV hydration as well as Zosyn. Lactate resolved with hydration. She had repeat [place] with bloating and pain increasing with liquid intake unchangedfrom previous and no surgical complications again noted. ACCOUNT ASSISTANT services followed ongoing through hospital stay. She was also seen by psychiatry with increase insertraline due to reports of depression and suicidal thoughts, should follow-up with [facility] health after discharge. Date of discharge she [...] % (Auto) 70.1, Lymph % (Auto) 16.5, Parker % (Auto) 9.5, Eos % (Auto) 3.5, Baso % (Auto) 0.4, Nucleat RBC Rel Count 0.1, Neut # (Auto) 9.6 H, Lymph # (Auto) 2.2, Parker # (Auto) 1.3 H, Eos # (Auto) 0.5 H, Baso # (Auto) 0.1 10/08/23 22:27: POC Glucose 194 10/08/23 18:21: POC Glucose 265, POC Glucose Comment Glu2: cleaned meter Exam Physical Exam Vital Signs: Temp Pulse Resp BP Pulse Ox O2 Del Method 97.7 F 75 18 116/79 97 Room Air 10/09/23 12:00 10/09/23 12:00 10/09/23 12:00 10/09/23 12:00 10/09/23 12:00 10/09/23 12:00 Narrative: CONST-alert, up in room, no [...] capsule 50,000 unit PO QWEEK Rx Instructions: Vraylar 1.5 mg capsule 1.5 mg PO [...] [Outside] (call to schedule follow up appointment) Carri Manuel DO [Active Staff - D.O.] - (keep appointment as schedule) Ajit Pettit NP-C [Primary Care Provider] - (call to schedule follow up appointment post hospitalization) Documented By: Ilene Lopez APRN 03/27 1322 Signed By: <Electronically signed by CHRISTINA Lopez> 10/09/23 1627 <Electronically signed by Salazar Cabrera DO> 10/09/23 1842 [facility] Work Phone: 1(516) 574-761301-06-2024 Progress note Author BONG Pavon [facility] October 09, 2023 8:22am Note Date/Time October 09, 2023 8: 22am [facility] [address] [place] [id number] Progress Note Signed Patient: Rachel Mcgarry MR#: [id number] : 1980 Acct:[id number] Age/Sex: 43 / F Adm Date: 4 Loc: Room: [address] [place] [address] Type: ADM IN Attending Dr: Salazar Cabrera [...] % (Auto) 70.1, Lymph % (Auto) 16.5, Parker % (Auto) 9.5, Eos % (Auto) 3.5, Baso % (Auto) 0.4, Nucleat RBC Rel Count 0.1, Neut # (Auto) 9.6 H, Lymph # (Auto) 2.2, Parker # (Auto) 1.3 H, Eos # (Auto) 0.5 H, Baso # (Auto) 0.1 01/05/24 22:27: POC Glucose 194 10/08/23 18:21: POC Glucose 265, POC Glucose Comment Glu2: cleaned meter 10/08/23 13:07: POC Glucose 166, POC Glucose Comment Glu2: cleaned meter 10/08/23 10:31: Lactic Acid 1.9 10/08/23 08:20: Urine Color Parker A, Urine Appearance Turbid A, Urine pH 5.5, Ur Specific Pelham > 1.050 H, Urine Protein 30 H, [...] <Electronically signed by BONG Pavon> 10/09/23 0822 [facility] Work Phone: 1(753) 628-917601-05-2024 Consult note Author Teo crandall [facility] October 08, 2023 4:59pm Note Date/Time October 08, 2023 11 :30am [facility] [address] [place], [place] [id number] Psychiatry Consult Note Signed with Piotr Patient: Rachel Mcgarry MR#: [id number] : 1980 Acct:[id number] Age/Sex: 43 / F Adm Date: 4 Loc: Room: [address] [place] [address] Type : ADM IN Attending Dr: Rosanna Grullon MD Copies to: MD Rosanna Rangel MD Laura E Spasic, NP-C~ ADDENDUM1 No need for 15 min face [...] issues with her psychiatrist who she sees. Mica would like to go home after she [...] unless noted below or in HPI [facility] Medical History (Updated 10/08/23 @ 11:22 by [...] Color Urine Appearance Urine pH Ur Specific Pelham Urine Protein Urine Glucose (UA) Urine Ketones Urine Occult Blood Urine Nitrite Ur Leukocyte Esterase Urine RBC Urine WBC 10/08/23 08:20 RBC Hgb Hct MCV MCH MCHC RDW Plt Count MPV Sodium Potassium Chloride Carbon Dioxide Anion Gap BUN Creatinine Calcium Total Bilirubin AST ALT Alkaline Phosphatase Total Protein Albumin Urine Color Parker A Urine Appearance Turbid A Urine pH 5.5 Ur Specific Pelham > 1.050 H Urine Protein 30 H [...] <Electronically signed by Teo Taylor MD> 10/08/23 1418 [facility] Work Phone: 1(179) 499-146701-05-2024 Progress note Author Salazar Cabrera [facility] October 08, 2023 4:41pm Note Date/Time October 08, 2023 11 :44am [facility] [address] [place] [address] Hospitalist Progress Note Signed Patient: Rachel Mcgarry MR#: [id number] : 1980 Acct:[id number] Age/Sex: 43 / F Adm Date: 4 Loc: 3S Room: 4X0337-7 Type: ADM IN Attending Dr: Rosanna Grullon [...] 07:54) Hives sulfamethoxazole [From Bactrim] Allergy (Verified 09/27/23 12:03) Seizure tramadol [From Ultram] Allergy (Verified [...] Ringers IV 10/06/24 22:59 150 mls/hr .Q6H40M SUSANNE Infusion Piperacillin Sod/Tazobactam Sod 3.375 gm in 100 mls @ 200 mls/hr 10/08/23 03:30 10/08/23 08:46 Zosyn IV 200 mls/hr Q6H SUSANNE Administration Ibuprofen 600 mg 10/08/23 02:00 10/08/23 03:32 Ibuprofen 600 Mg Tablet PO 10/07/24 01:59 Not Given Q6H [facility] Insulin Aspart 0 units 10/08/23 06:00 10/08/23 06:27 Insulin Aspart 300 Units/3 Ml Insuln.Pen SUBCUT 10/07/24 05:59 1 units Q6HR SUSANNE Administration Protocol Ondansetron HCl 4 mg 10/07/23 [...] Lactic acidosis chronic leukocytosis -CT abdomen pelvis?from [facility] showed nonspecific hyperemia and thickening of small bowel distally suggestive of enteritis, nonacute otherwise, no postsurgical complications noted -Repeat CT abdomen pelvis?increasing bibasilar atelectasis, fatty liver, no bowel or urinary tract obstruction, no pelvic hematoma or significant free fluid, otherwise unchanged CT abdomen pelvis -Initial lactate 3.0--> 2.6--> 2.0--> 1.9 -Continue Zosyn, IVF. Afebrile. Scheduled dicyclomine. Symptom management -Advance diet to full liquid -ACCOUNT ASSISTANT following Depression -Seen by psychiatry with increase [...] assessment and plan. - Salazar Cabrera DO Documented By: Ilene Lopez APRN 02/24 1144 Signed By: <Electronically signed by CHRISTINA Lopez> 10/08/23 1613 <Electronically signed by Salazar Cabrera DO> 10/08/23 1641 [facility] Work Phone: 1(653) 310-137801-05-2024 History and physical note Author BONG Pavon [facility] October 08, 2023 1:07pm Note Date/Time October 08, 2023 7: 21am [facility] [address] [place] [address] BUFFER COPPER History & Physical Signed with Addenda Patient: Rachel Mcgarry MR#: [id number] : 1980 Acct:[id number] Age/Sex: 43 / F Adm Date: 4 Loc: Room: [address] [place] [address] Type: ADM IN Attending Dr: Beltran Pavon [...] has enteritis. She is cleared from the ACCOUNT ASSISTANT post op standpoint and we are signing off. Pt will be transferred to a medical floor for continued management. Addendum Documented By: BONG Pavon 10/08/23 1307 Addendum Signed By: <Electronically signed by BONG Pavon> 10/08/23 1307 Date of Service: 10/08/2023 ACCOUNT ASSISTANT - HPI History of Present Illness Chief Complaint: Abdominal pain with emesis Planned Procedure: S/P TLH 09/28/2023 HPI: Rachel presented to [facility] yesterday with abdominal pain/distension and emesis.Her lactic acid was 3.0,WBS 20k in ER,Sodium [address] scan compatible with enteritis. She was transferred to [facility] for observation and treatment. Pt with Chronic leukocytosis as followed by hematology for 2 years Review of Systems Review of Systems All other systems reviewed & are negative unless noted below or in HPI [facility] Medical History (Updated 10/08/23 @ 11:22 by [...] 500 Mg Tablet) 1,000 mg PO Q6H SUSANNE Stop: 10/06/24 22:59 Dextrose (Dextrose 50% In [...] 1,000 mls @ 150 mls/hr IV .Q6H40M [facility] Stop: 10/06/24 22:59 Last Admin: 10/08/23 01:10 Dose: 125 mls/hr Piperacillin Sod/Tazobactam Sod (Zosyn) 3.375 gm in 100 mls @ 200 mls/hr IV Q6HSCH Last Admin: 10/08/23 03:45 Dose: 200 mls/hr Ibuprofen (Ibuprofen 600 Mg Tablet) 600 mg PO Q6H SUSANNE Stop: 10/07/24 01:59 Last Admin: 10/08/23 03:32 Dose: Not Given Insulin Aspart (Insulin Aspart 300 Units/3 Ml Insuln.Pen) 0 units SUBCUT Q6HR SUSANNE; Protocol Stop: 10/07/24 05:59 Last Admin: 10/08/23 06:27 Dose: 1 units Ondansetron HCl (Ondansetron 4 Mg/2 Ml Vial) 4 mg IV-PUSH Q8H PRN PRN Reason: Nausea And Vomiting Stop: 10/06/24 22:53 Ondansetron HCl (Ondansetron Odt 4 Mg Tab.Rapdis) 4 mg PO Q8HR PRN PRN Reason: Nausea And Vomiting Stop: 10/06/24 22:53 ACCOUNT ASSISTANT - Exam Physical Exam Vital signs: Temp [...] Present normal affect, suicidal ideation and depressed ACCOUNT ASSISTANT - Results Laboratory Results - Last 48 [...] Albumin 3.7, Globulin 2.4, Albumin/Globulin Ratio 1.5 ACCOUNT ASSISTANT - A/P (1) Abdominal pain: Plan: Post [...] By: <Electronically signed by BONG Pavon> 10/08/23 2828 [facility] Work Phone: 1(412) 795-560201-05-2024 Consult note Author Rosanna Grullon [facility] October 08, 2023 7:00am Note Date/Time October 08, 2023 1: 06am [facility] [address] [place] [address] Hospitalist Consult Note Signed Patient: Rachel Mcgarry MR#: [id number] : 1980 Acct:[id number] Age/Sex: 43 / F Adm Date: 4 Loc: Room: [address] [place] [address] Type: ADM IN Attending Dr: Beltran Pavon MD Copies to: MD Ajit Davis, TIRE CURER-C Namrata Munoz, CHRISTINA Pavon MD-LINDA~ HPI DATE OF CONSULTATION: 10/08/23 REQUESTING PROVIDER: Beltran Pavon Consult Narrative Reason for Consult: elevated lactic acid, T2DM, leukocytosis HPI: Ms. Mcgarry is a 43-year-old female with a PMH of T2DM, seizure disorder, recent hysterectomy that was transferred here to [facility] to obstetrics for abdominal pain. Hospitalist team has been consulted for management of T2DM, elevated lactic acid and leukocytosis. Patient arrived to the [facility] emergency room via EMS for [...] September 28. She been seen in the [facility] emergency room for vaginal infection and [...] noted in the HPI or below. 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 [facility] Other 01-31-2023 Evaluation note* Encounter Date Diagnosis [...] cervical spine to further evaluate her pain. [facility] Other 01-30-2023 Hospital Discharge instructions Patient Education [...] to keep your urine pale yellow. ?Take qsuj-xzm-yjolygn or prescription medicines. ?Eat foods that are high in fiber, such as beans, whole grains, and fresh fruits and vegetables. ?Limit foods that are high in fat and processed sugars, such as fried or sweet foods. General instructions Take leij-jbk-rnvgsyz and prescription medicines only as told by [...] the muscles that help control urination. Take vqzj-qth-crlvtti and prescription medicines only as told by your health care provider. Contact a health care provider if your symptoms do not improve or get worse. This information is not intended to replace advice given to you by your health care provider. Make sure you discuss any questions you have with your health care provider. Document Released: 07/17/2010 Document Revised: 03/30/2019 Document Reviewed: 03/30/2019 [employer] Patient Education 2020 [employer] Follow Up Care 10/22/2022 11:17:07 With:JORDANA BALDERAS, Joshua Dempsey, URL Address: [address] [address]- Business (1) When: Unknown [facility] [place] [phone] Note [id number]:127[facility] 08-24-2022 NoteCystoscopy with Urethral Dilation ? Voiding [...] if you have a fever over 100 degreesAs[facility]ula [facility]11-21-2022 Hospital Discharge instructions Patient Education 08/24/2022 15:50:28 [...] Up Care 07/31/2022 12:32:41 With:Joshua PRESTON Address: [address] [id number] Business (1) When:6 weeks Comments:Call for followup appointment. Monitor the urinary low after the dilation today. Have a great Thanksgiving. [facility]10-28-2022 Hospital Discharge instructions Patient Education 07/31/2022 [...] including vitamins, herbs, eye drops, creams, and lnao-qyw-fpfwscx medicines. ?Whether you are or may be [...] 07/17/2008 Document Revised: 01/09/2020 Document Reviewed: 07/25/2018 [employer] Patient Education 2020 [employer]. Follow Up Care 07/24/2022 16:53:57 With:JORDANA BALDERAS, Joshua Dempsey, URL Address: [facility] [employer] [address] [place] [address]- When: Unknown Comments:Cysto/ Urodynamics [facility] [place] [phone] Evaluation note* Encounter Date Diagnosis Assessment Notes [...] and GT bursa injection in the future. [facility] Other 04-27-2022 Evaluation note* Encounter Date Diagnosis [...] progress notes from her referring physician at [facility]. I also independently reviewed previous MRI [...] - M79.7) Continue with medication management through [facility]. I will also refer her to [...] negative findings were considered in medical decision-making. [facility] Other 04-13-2022 Evaluation note* Encounter Date Diagnosis Assessment Notes Treatment Notes Treatment Clinical Notes Jan, Neck pain (ICD-10 - M54.2) I really do not see any surgical intervention that would be warranted in either her cervical or lumbar spine. I think continue conservative therapy is warranted. Jan, Low back pain at multiple sites (ICD-10 - M54.50) Jan, Fibromyalgia (ICD-10 - M79.7) [facility] Other consult note Author Jasmin [facility] May 27, 2022 11:47am Note Date/Time May 27, 2022 11 :30[facility] [place] [id number] Hem/Onc Consult Note - OP Signed Patient: Rachel Mcgarry MR#: [id number] : 1980 Acct:[id number] Age/Sex: 42 / F Type: REG RCR Copies to: [facility]~ HPI Date/Time of Service: Date of Service: 05/27/2022 Time of Service: 11:29 Referring Provider/PCP: Referring Provider: PCP: Services [facility] - History of Present Illness Reason for Consultation: Leukocytosis Chief Complaint: Patient is here for a referral from Ajit Pettit for leukocytosis. [facility] labs. Patient states that she has been [...] the process of being referred to a contract specialist. Patient smokes averaging half pack to 1 [...] been very well within the normal range [facility] - Medical History Medical History: Medical History [...] cancer. Patient is being referred to a contract specialist. We instructed her to call back if there is any concern for further definitive guidance and recommendations - Time with Patient Coordination of Care & Counseling Time: Greater than 50% of time spent with patient was for coordination of care (as documented) and lenk-kz-wsad counseling of patient and/or family. Dictated By: Jasmin Velázquez MD DD/ [id number] Signed By: <Electronically signed by Jasmin Velázquez MD> 05/27/22 1147 [facility] Work Phone: Evaluation + Plan note Future Appointments Appointment Date:08/18/2022 08:00:00 AM Scheduled Provider: Location:[facility] Appointment Type:Urology CALL PAT FT Appointment Date:08/24/2022 02:00:00 PM Scheduled Provider: Location:[facility] Appointment Type:Urology FT Appointment Date:08/24/2022 03:00:00 PM Scheduled Provider: Location:[facility] Appointment Type:Urology FT [facility] Evaluation + Plan note Future Appointments Appointment Date:09/29/2022 10:15:00 AM Scheduled Provider:Joshua PRESTON MD Location:[facility] Future Appointments Appointment Date:12/29/2022 10:45:00 AM Scheduled Provider:Joshua PRESTON MD Location:[facility] Appointment Type:URO Office Visit [facility] Evaluation noteNo Assessments Information Available [facility] noteNo InformationNort Tool[employer] Other Evrkpation note* Diagnosis Onset Date Resolution Status Iron deficiency acute Leucocytosis acute Right ovarian cyst acute [facility] Work Phone: Evalupyfpz noteNo assessment information available [facility] Work Phone: Evsxeation note* Diagnosis Onset Date Resolution Status Abdominal pain acute Enteritis acute History of depression acute History of leukocytosis acut e IBS (irritable bowel syndrome) acute Leucocytosis acute Metabolic acidosis acute S/P hysterectomy acute T2DM (type 2 diabetes mellitus) acute [facility] Work Phone: Hiswyal general Narrative - Reported* Type Description Date [...] infection, bowel i nfection and flu 2011 [facility] Other Hismkfi general Narrative - Reported* Type Description Date [...] infection, bowel i nfection and flu 2011 [facility] Other Hospital course Narrative No data available for this section [facility] Hospital Discharge instructions No data available for this section [facility] Hospital Discharge instructions Additional Instructions DISCHARGE INSTRUCTIONS [...] in an emergency, call the office at [[phone]]. TODAY -Take it easy the rest of [...] FOLLOW UP -Please call the office at [phone] to arrange an appointment to see me in 2 weeks [ ][facility] Work Phone: Hospital Discharge instructions Additional Instructions Follow any previous post-op orders.[facility] Work Phone: Progress note No data available for this section [facility] [place] Reason for visit NarrativeReferral Ajit Pettit NP [facility]bar [employer] Other Summary Purpose Family History No Family [...] section and content) DATE CREATED AUTHOR 07/25/2019 [facility] DATE CREATED AUTHOR AUTHOR'S ORGANIZ ATION 12/27/2022 [facility] DATE CREATED AUTHOR AUTHOR'S ORGANIZ ATION 02/15/2023 [facility] DATE CREATED AUTHOR AUTHOR'S ORGANIZ ATION 10/21/2023 [facility] EPIC DATE CREATED AUTHOR AUTHOR'S ORGANIZ ATION 10/28/2023 [facility] REASON FOR VISIT (unrecogniz ed section and content) LEFT L3,4 TRANSFORAMINAL EPIDURAL STEROID INJ/ELREF BY [facility] FOR LUMBAR DISC HERNIATIONFOLLOW UP AFTER LEFT LTRBILATERAL SACROILIAC JOINT INJECTIONINCREASE BACK PAIN RADIATING LLELEFT L3 AND L4 TRANSFORAMINAL EPIDURAL STEROID INJECTIONF/U INCREASE IN LOW BACK PAIN AND LEFT LE WEAKNESS-LOST TO FOLLOW UP LAST TIMEL4- 5 EPIDURAL STEROID INJ/ELRIGHT SACROILIAC JOINT INJ/EL Care Teams (unrecognized sec tion and content) Team Status: Inactive Member Role Status Dates Services [facility] Primary Care Provider Active OLEG Sharp Attending Provider Active Team Status: Active Member Role Status Lorie Velázquez MD Attending Provider Active Services [facility] Primary Care Provider Active Team Status: Inactive Member Role Status Dates Services [facility] Primary Care Provider Titus Alvarado DO Emergency Provider Active Team Status: Inactive Member Role Status Dates Services [facility] Primary Care Provider Ac OLEG Mejias Attending Provider Active Team Status: Inactive Member Role Status Dates Services [facility] Primary Care Provider Titus Bergeron APRN Emergency Provider Active Team Status: Active Member Role Status Dates Services [facility] Senior Primary Care Provider Titus dos santos Team Status: Inactive Member Role Status OLEG Thomson Attending Provider Active Services [facility] Primary Care Provider Ac raya Team Status: Inactive Member Role Status Dates Services [facility] Primary Care Provider Titus Miramontes MD Attending Provider Active Team Status: Inactive Member Role Status OLEG Thomson Attending Provider Active Team Status: Active Member Role Status Lorie . [facility] Primary Care Provider Active Team Status: Inactive Member Role Status Lorie Miramontes MD Attending Provider Active . [facility] Primary Care Provider Active Team Status: Inactive Member Role Status Dates Ajit E Spasic , TIRE CURER-C Attending Provider Active NON STAFF Primary Care Provider Active Team Status: Active Member Role Status Dates Ajit E Spasic , TIRE CURER-C Primary Care Provider Active Team Status: Inactive Member Role Status Dates Ajit E Spasic , TIRE CURER-C Primary Care Provider, Attending Provider Active Team Status: Inactive Member Role Status Dates Kyler Miramontes MD Attending Provider Active Ajit E Spasic , TIRE CURER-C Primary Care Provider Active Team Status: Inactive Member Role Status Dates Ajit E Spasic , TIRE CURER-C Primary Care Provider Active Kyler Miramontes MD Attending Provider Active Team Status: Inactive Member Role Status Dates Ajit E Spasic , TIRE CURER-C Primary Care Provider Active Carri Manuel DO Attending Provider Active Team Status: Inactive Member Role Status Dates Beltran Pavon MD Admit Provider Active Pastora Calderon , JULIANA Other Provider Active Sarina Danielle , JULIANA Other Provider Active Bernie Brar , JULIANA Other Provider Active Karuna Flor , JULIANA Other Provider Active Lakshmi Manzano RN Other Provider Active Tracy Sun , JULIANA Other Provider Active Silvia Galeas , GRAB SETTER Other Provider Active Evan Jackson , DO Other Provider Active Familia Blair MD Other Provider Active Brandon Dowling , DO Other Provider Active Florin Cruz MD Other Provider Active Vivi Holloway MD Other Provider Active Ilene Lopez , GRAB SETTER Other Provider Active Lilly Alexandre MD Other Provider Active Rangel Tyler MD Other Provider Active Aidan Carednas MD Other Provider Active Holden De La Cruz MD Other Provider Active Leodan Catalan , DO Other Provider Active Palma Bright MD Other Provider Active Gabriele Vasquez MD Other Provider Active Karina Colvin , TIRE CURER-C Other Provider Active Gaurav Peraza MD Other Provider Active Mike Guzman MD Other Provider Active Antonio Teague MD Other Provider Active Jorge Galdamez MD Other Provider Active Kourtney Longoria , DO Other Provider Active Bola Sullivan , DO Other Provider Active Lazaro Dunne , DO Other Provider Active Elvira Nava , GRAB SETTER Other Provider Active Salazar Cabrera , DO Attending Provider, Other Provider Active Naila Lema MD Other Provider Active Namrata Munoz APRN Other Provider Active Carole Lundy APRN Other Provider Active Rosanna Grullon MD Other Provider Active Girish Tolentino MD Other Provider Active Beryl Holguin APRN Other Provider Active Mabel Lackey DO Other Provider Active Talita Noel RN Other Provider Active Teo Taylor MD Other Provider Active Ajit Pettit , TIRE CURER-C Primary Care Provider Active Team Status: Inactive Member Role Status Dates Ajit Pettit TIRE CURER-C Primary Care Provider Active Diego Noble DO [...] BE BASED ON THE PRIMARY CLINICAL RECORDS. [facility] [employer] [facility]. provides no warranty or guarantee of the accuracy or completeness of information in this document.
--- NOTE | 2023-11-12 02:48 | ED_ITS ---
HPI - Female Genitourinary General Chief complaint: Urogenital-Female Stated complaint: pelvic pain hysterectomy 09/2023 Time Seen by Provider: 11/12/23 02:39 Source: patient Mode of arrival: walk-in Limitations: no limitations History of Present Illness HPI Narrative: 43-year-old female presented to the emergency department for lower abdominal pain. It is a burning sensation and it is continuous and she has had it for 4 days. She had a hysterectomy in late September and then about a month ago she was diagnosed with C. difficile. She has not had a fever or vomiting or any injury. She does not complain of dysuria. Related Data Home Medications Medication Instructions Recorded Confirmed cariprazine 1.5 mg capsule 1.5 mg PO DAILY 04/20/23 04/20/23 (Vraylar) diazepam 5 mg tablet 5 mg PO DAILY 04/20/23 04/20/23 divalproex 250 mg tablet,delayed 250 mg PO DAILY 04/20/23 04/20/23 release divalproex 500 mg tablet,extended 500 mg PO DAILY 04/20/23 04/20/23 release 24 hr doxazosin 2 mg tablet 2 mg PO DAILY 04/20/23 04/20/23 dulaglutide 0.75 mg/0.5 mL 0.75 mg subcut DAILY 04/20/23 04/20/23 subcutaneous pen injector (Trulicity) dulaglutide 1.5 mg/0.5 mL 1.5 mg subcut DAILY 04/20/23 04/20/23 subcutaneous pen injector (Trulicity) ergocalciferol (vitamin D2) 1,250 1,250 mcg PO DAILY 04/20/23 04/20/23 mcg (50,000 unit) capsule ferrous sulfate 325 mg (65 mg 325 mg PO DAILY 04/20/23 04/20/23 iron) tablet (FeroSul) gabapentin 800 mg tablet 800 mg PO DAILY 04/20/23 04/20/23 ibuprofen 800 mg tablet 1,000 mg PO BID 04/20/23 04/20/23 metformin 500 mg tablet,extended 500 mg PO DAILY 04/20/23 04/20/23 release 24 hr tizanidine 4 mg capsule 8 mg PO BID PRN muscle spasticity 04/20/23 04/20/23 Allergies Allergy/AdvReac Type Severity Reaction Status Date / Time amitriptyline Allergy dizzy Verified 11/12/23 02:28 latex Allergy hives Verified 11/12/23 02:28 sulfamethoxazole Allergy Hives Verified 11/12/23 02:28 [From Bactrim] tramadol [From Ultram] Allergy seizures Verified 11/12/23 02:28 trimethoprim [From Bactrim] Allergy Hives Verified 11/12/23 02:28 Review of Systems ROS Narrative A ten point review of systems is negative except as noted above. PFSH PFSH Social History Smoking status: Current every day smoker Exam Narrative Exam Narrative: Nurses note and vital signs reviewed and patient is not hypoxic. General: The patient appears well and in no apparent distress. Patient is resting comfortably on cart. Skin: Warm, dry, no pallor noted. There is no rash noted. Head: Normocephalic, atraumatic Eye: Normal conjunctiva, no drainage Ears, Nose, Mouth, and Throat: oral mucosa is moist. Nares patent. Cardiovascular: Regular Rate and Rhythm Respiratory: Patient is in no distress, no accessory muscle use, lungs are clear to auscultation, no wheezing, rales or rhonchi Back: non-tender GI: Minimal tenderness across the lower abdomen without mass or rebound. Musculoskeletal: The patient has no evidence of calf tenderness, no pitting edema, symmetrical pulses noted bilaterally Neurological: A&O, normal speech Psychiatric: Cooperative Constitutional Vital Signs, click to edit/add: Last Vital Signs Temp 97.7 F 11/12/23 02:21 Pulse 96 H 11/12/23 02:21 Resp 18 11/12/23 02:21 BP 128/80 11/12/23 02:21 Pulse Ox 98 11/12/23 02:21 O2 Del Method Room Air 11/12/23 02:21 Course Vital Signs Vital signs: Vital Signs Temperature 97.7 F 11/12/23 02:21 Pulse Rate 96 H 11/12/23 02:21 Respiratory Rate 18 11/12/23 02:21 Blood Pressure 128/80 11/12/23 02:21 Pulse Oximetry 98 11/12/23 02:21 Oxygen Delivery Method Room Air 11/12/23 02:21 Temperature 97.7 F 11/12/23 02:21 Pulse Rate 96 H 11/12/23 02:21 Respiratory Rate 18 11/12/23 02:21 Blood Pressure 128/80 11/12/23 02:21 Pulse Oximetry 98 11/12/23 02:21 Oxygen Delivery Method Room Air 11/12/23 02:21 MDM - Female Genitourinary MDM Narrative Medical decision making narrative: Her workup is negative. Urinalysis is negative and white count is normal. She was unable to provide stool specimen for C. difficile testing. She has not been having diarrhea. 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 Treatment diagnosis and follow-up were discussed with the patient. Differential Diagnosis Differential diagnosis: Likely urinary tract infection and other (Postoperative pain) Lab Data Attestation: I reviewed the patient's lab results. Labs: Lab Results 11/12/23 11/12/23 Range/Units 02:40 02:58 WBC 12.4 H (4.0-11.0) 10^3/uL RBC 4.87 (4.20-5.40) 10^6/uL Hgb 14.4 (12.0-16.0) g/dL Hct 43.9 (36.0-48.0) % MCV 90.1 (81.0-99.0) fL MCH 29.6 (26.7-34.0) pg MCHC 32.8 (29.9-35.2) g/dL RDW 12.3 (11.0-15.0) % Plt Count 267 (150-450) 10^3/uL MPV 9.5 (9.5-13.5) fL Neut % (Auto) 60.4 (43.0-75.0) % Lymph % (Auto) 29.7 (20.5-60.0) % [place] % (Auto) 7.7 (1.7-12.0) % Eos % (Auto) 1.3 (0.9-7.0) % Baso % (Auto) 0.6 (0.2-2.0) % Neut # (Auto) 7.5 H (1.4-6.5) 10^3/uL Lymph # (Auto) 3.7 (1.2-3.8) 10^3/uL [place] # (Auto) 1.0 H (0.3-0.8) 10^3/uL Eos # (Auto) 0.2 (0.0-0.7) 10^3/uL Baso # (Auto) 0.1 (0.0-0.1) 10^3/uL Abs Immat Gran (auto) 0.04 H (0.00-0.03) 10^3/uL Imm/Tot Granulo (auto) 0.3 (0.0-0.5) % Sodium 136 (136-145) mmol/L Potassium 3.9 (3.5-5.1) mmol/L Chloride 98 (98-107) mmol/L Carbon Dioxide 23.8 (21.0-32.0) mmol/L Anion Gap 18.1 BUN 8.0 (7.0-18.0) mg/dL Creatinine 0.85 (0.55-1.02) mg/dL Est GFR ( Amer) >60 (>=60) Est GFR (Non-Af Amer) >60 (>=60) BUN/Creatinine Ratio 9.4 Glucose 376 H (74-106) mg/dL Calcium 8.7 (8.5-10.1) mg/dL Urine Color Lt. yellow (YELLOW) Urine Clarity Sl cloudy (CLEAR) Urine pH 5.5 (5.0-9.0) Ur Specific [place] 1.015 (1.005-1.025) Urine Protein Negative (NEG/TRACE) mg/dL Urine Glucose (UA) >=1000 A (NEGATIVE) mg/dL Urine Ketones Trace A (NEGATIVE) mg/dL Urine Occult Blood Negative (NEGATIVE) Urine Nitrite Negative (NEGATIVE) Urine Bilirubin Negative (NEGATIVE) Urine Urobilinogen 0.2 (0.2-1.0) EU/dL Ur Leukocyte Esterase Negative (NEGATIVE) Discharge Plan Discharge Chief Complaint: Urogenital-Female Clinical Impression: Abdominal pain Patient Disposition: Home, Self-Care Time of Disposition Decision: 03:50 Condition: Good Mode of Transportation: Private Vehicle Prescriptions / Home Meds: No Action Vraylar 1.5 mg capsule 1.5 mg PO DAILY diazepam 5 mg tablet 5 mg PO DAILY divalproex 250 mg tablet,delayed release (DR/EC) 250 mg PO DAILY divalproex 500 mg tablet extended release 24 hr 500 mg PO DAILY doxazosin 2 mg tablet 2 mg PO DAILY Trulicity 0.75 mg/0.5 mL pen injector 0.75 mg SUBCUT DAILY Trulicity 1.5 mg/0.5 mL pen injector 1.5 mg SUBCUT DAILY ergocalciferol (vitamin D2) 1,250 mcg (50,000 unit) capsule 1,250 mcg PO DAILY ferrous sulfate [FeroSul] 325 mg (65 mg iron) tablet 325 mg PO DAILY gabapentin 800 mg tablet 800 mg PO DAILY ibuprofen 800 mg tablet 1,000 mg PO BID tizanidine 4 mg capsule 8 mg PO BID PRN (Reason: muscle spasticity) metformin 500 mg tablet extended release 24 hr 500 mg PO DAILY Instructions: Abdominal Pain (ED) Additional Instructions: Call your senior windows systems engineer in the morning for follow-up appointment Stand Alone Forms: Portal Instructions Referrals: Physician,Non-Staff, MD [Primary Care Provider] - 1 week
[2023-11-12 02:51] LABS: Bilirubin Urine NEGATIVE (NEGATIVE); Blood Urine NEGATIVE (NEGATIVE); Clarity Urine SL CLOUDY (CLEAR); Color Urine LT. YELLOW (YELLOW); Glucose Urine UA >=1000 mg/dL (NEGATIVE); Ketones Urine TRACE mg/dL (NEGATIVE); Leukocyte Esterase Urine NEGATIVE (NEGATIVE); Nitrite Urine NEGATIVE (NEGATIVE); Protein Urine NEGATIVE (NEG/TRACE); Specific Gravity Urine 1.015 (1.005-1.025); Urobilinogen Urine 0.2 EU/dL (0.2-1.0); pH Urine 5.5 (5.0-9.0)
[2023-11-12 03:03] LABS: Urine Microscopic Indicated NO
[2023-11-12 03:04] LABS: Basophils Absolute Auto 0.1 10^3/uL (0.0-0.1); Basophils Percent Auto 0.6 % (0.2-2.0); Eosinophils Absolute Auto 0.2 10^3/uL (0.0-0.7); Eosinophils Percent Auto 1.3 % (0.9-7.0); Hematocrit 43.9 % (36.0-48.0); Hemoglobin 14.4 g/dL (12.0-16.0); Immature Granulocytes Abs Auto 0.04 10^3/uL (0.00-0.03); Immature Granulocytes Pct Auto 0.3 % (0.0-0.5); Lymphocytes Absolute Auto 3.7 10^3/uL (1.2-3.8); Lymphocytes Percent Auto 29.7 % (20.5-60.0); Mean Corpuscular HGB Conc 32.8 g/dL (29.9-35.2); Mean Corpuscular Hemoglobin 29.6 pg (26.7-34.0); Mean Corpuscular Volume 90.1 fL (81.0-99.0); Mean Platelet Volume 9.5 fL (9.5-13.5); Monocytes Percent Auto 7.7 % (1.7-12.0); Neutrophils Absolute Auto 7.5 10^3/uL (1.4-6.5); Neutrophils Percent Auto 60.4 % (43.0-75.0); Platelet Count 267 10^3/uL (150-450); Red Blood Count 4.87 10^6/uL (4.20-5.40); Red Cell Distribution Width 12.3 % (11.0-15.0); White Blood Count 12.4 10^3/uL (4.0-11.0)
[2023-11-12 03:26] LABS: Anion Gap 18.1; BUN Creatinine Ratio 9.4; Calcium 8.7 mg/dL (8.5-10.1); Carbon Dioxide 23.8 mmol/L (21.0-32.0); Chloride 98 mmol/L (98-107); Estimated GFR (African America >60 (>=60); Estimated GFR (Non-African Ame >60 (>=60); Glucose 376 mg/dL (74-106); Potassium 3.9 mmol/L (3.5-5.1); Sodium 136 mmol/L (136-145)
== END 2023-11-12 03:59 | disposition home or self-care (01) ==
PROVIDERS: Emergency Provider Emergency Medicine
DX: R10.9 Unspecified abdominal pain (principal); Z79.899 Other long term (current) drug therapy; Z79.84 Long term (current) use of oral hypoglycemic drugs; Z79.85 Long-term (current) use of injectable non-insulin antidiabetic drugs; F17.210 Nicotine dependence, cigarettes, uncomplicated
CPT/HCPCS: 36415; 80048; 81003; 85025; 87493; 99283

== ENCOUNTER 2024-03-26 03:29 | Emergency (ER) | payer OTHER, SELFPAY ==
--- OUTSIDE RECORDS SUMMARY | 2024-03-26 03:35 | XMS_ITS | CCD ---
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 Chronic Nonmalignant breast conditions (1 source) Unspecified lump in right breast, subareolar; Translations: [Unspecified lump in right breast, subareolar] Onset: 02-09-2024 Episodic Nonspecific chest pain (20 sources) Atypical chest pain; Translations: [Other chest pain] 04-17-2019 Episodic Nutritional deficiencies (20 sources) Iron deficiency; Translations: [Iron deficiency] 05-27-2022 Episodic Other aftercare (1 source) Other termination clerk (current) drug therapy; Translations: [OTH HALF-WAY 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 THERAPY] Onset: 02-02-2023 Episodic Other aftercare (1 source) jail (current) use of oral hypoglycemic drugs; Translations: [HALF-WAY USE ORAL HYPOGLYCEMIC DX] Onset: 02-02-2023 Episodic [...] Episodic Other ear and sense organ disorders (20 sources) Pain of ear structure; Translations: [Otalgia, unspecified ear] 11-26-2017 Episodic Other female genital disorders (10 sources) Vaginal bleeding; Translations: [Abnormal uterine and vaginal bleeding, unspecified] 10-24-2023 Chronic Other female genital disorders (1 source) Abnormal uterine and vaginal bleeding, unspecified; Translations: [Abnormal uterine and vaginal bleeding, unspecified] Onset: 10-16-2023 Chronic Other gastrointestinal disorders (12 sources) Irritable bowel syndrome; Translations: [Irritable bowel syndrome without diarrhea] 10-08-2023 Chronic Other gastrointestinal disorders (3 sources) Irritable bowel syndrome without diarrhea; Translations: [Irritable bowel syndrome] Onset: 10-07-2023 10-09-2023 Chronic Other hematologic conditions (12 sources) H/O: blood disorder; Translations: [Personal history of diseases of the blood and blood-forming organs and certain disorders involving the immune mechanism] 10-08-2023 Episodic Other injuries and conditions due to external causes (20 sources) Lower back injury; Translations: [Strain of muscle, fascia and tendon of lower back, initial encounter] 09-25-2019 Episodic Other lower respiratory disease (20 sources) Hyperventilation; Translations: [Hyperventilation] 12-26-2017 Episodic Other nervous system disorders (10 sources) Spinal cord disease; Translations: [Disease of spinal cord, unspecified] Chronic Other nervous system disorders (15 sources) Chronic pain; Translations: [Other chronic pain] 02-21-2024 Chronic Other nervous system disorders (12 sources) Other chronic pain; Translations: [Other chronic pain] Onset: 01-28-2022 Resolved: 02-19-2022 Chronic Other nervous system disorders (1 source) Chronic pain syndrome; Translations: [CHRONIC PAIN SYNDROME] Onset: 11-16-2022 Chronic Other nervous system disorders (1 source) Other chronic pain; Translations: [Other chronic pain] Onset: 05-05-2023 Chronic Other nervous system disorders (12 sources) Acute postoperative pain; Translations: [Other acute postprocedural pain] 10-08-2023 Episodic Other screening for suspected conditions (not mental disorders or infectious disease) (2 sources) Encounter for screening mammogram for malignant neoplasm of breast; Translations: [Other specified abnormal findings of blood chemistry] Onset: 01-21-2024 Episodic Other upper respiratory infections (20 sources) [...] [Tobacco use] 12-20-2017 Episodic Residual codes; unclassified (10 sources) Left against medical advice; Translations: [Procedure and treatment not carried out because of patient's decision for other reasons] 10-24-2023 Episodic Screening and history of mental health [...] source) Acidosis, unspecified; Translations: [Acidosis, unspecified] Onset: 10-07-2023 Unclassified (1 source) Encounter for preprocedural laboratory examination; Translations: [Encounter for preprocedural laboratory examination] Onset: 09-16-2023 Past or Other Problems Problem Classification Problem Date Documented Date Episodic/Chronic Abdominal pain (15 sources) Abdominal pain; Translations: [Unspecified abdominal pain] Onset: 10-07-2023 10-08-2023 Episodic Epilepsy; convulsions (3 sources) Unspecified convulsions; Translations: [UNSPECIFIED CONVULSIONS] Onset: 11-12-2022 Episodic Heart valve disorders (5 sources) Heart murmur; Translations: [Cardiac murmur, unspecified] Onset: 11-16-2022 10-27-2019 Episodic Noninfectious gastroenteritis (15 sources) Enteritis of small intestine; Translations: [Noninfective gastroenteritis and colitis, unspecified] Onset: 10-07-2023 10-08-2023 Episodic Other connective tissue disease (3 sources) Fibromyalgia; Translations: [FIBROMYALGIA] Onset: 01-14-2022 Resolved: 01-28-2022 Episodic Other hematologic conditions (3 sources) Personal history of diseases of the blood and blood-forming organs and certain disorders involving the immune mechanism; Translations: [Personal history of diseases of blood and blood-forming organs] Onset: 10-07-2023 10-09-2023 Episodic Other nervous system disorders (2 sources) Other acute postprocedural pain; Translations: [Other acute postprocedural pain] Onset: 09-28-2023 Episodic Other non-traumatic joint disorders (1 source) Pain in unspecified hip Onset: 02-19-2022 Resolved: 02-19-2022 Episodic Residual codes; unclassified (3 sources) Acquired absence of both cervix and uterus; Translations: [Acquired absence of both cervix and uterus] Onset: 10-07-2023 10-09-2023 Episodic Residual codes; unclassified (1 source) Tobacco use; Translations: [Tobacco use] Onset: 05-04-2023 Episodic Screening and history of mental health and substance abuse codes (15 sources) H/O: depression; Translations: [Personal history of other mental and behavioral disorders] Onset: 10-07-2023 10-08-2023 Episodic Spondylosis; intervertebral disc disorders; other back problems (12 sources) Cervicalgia; Translations: [Radiculopathy, lumbar region] Onset: 01-14-2022 Resolved: 02-19-2022 Episodic Unclassified (1 source) Low back pain at multiple sites M54.50 Onset: 01-14-2022 Resolved: 01-14-2022 Results Test Name Value Interpretation Reference Range Facility Capillary blood glucose ashwini urement by glucometer (mass/volume)Ordered By: Abi Sunshine on 03-16-2024 Glucose [Mass/Vol] 140 mg/dL Normal [facility] Comment on above: Random Glucose Refer ence Range is dependent on time and content of last meal. Glucose of more than 200 mg/dL in a nonstressed, ambulatory subject supports the diagnosis of Diabetes Mellitus. Result Comment: [place] om Glucose Reference Range is dependent on time and content of last meal. Glucose of more than 200 mg/dL in a nonstressed, ambulatory subject supports the diagnosis of Diabetes Mellitus. PERFORMED BY: [place] [address] PATHOLOGIST LOSS PREVENTION GUARD RIDGE HUERTA M.D. Performed By: #### C BC, CMP, FE and TIBC, LIPID, URMA, LDLD #### [address] Mark 03-16-2024 L Specimen: [id number] Received: 03/16/24 Status: BLUE Reeduarda Num: [id number] Spec Type: Surgical Subm Dr: Abi Sunshine DO Tissues: A Colon Biopsy (RT RANDOM COLON BX) B Colon Biopsy (RANDOM LT) C Colon Biopsy (TRANSV POLYPS) D Colon Biopsy (RECTAL POLYP) Procedures: HE/8, Gross/Micro L4/4 Age/ Patient Sex Location Account Attending Physician Rachel Mcgarry 44/F [id number] Abi Sunshine DO SPEC NUM: [id number] RECD: 03/16/24 STATUS: BLUE NEAL NUM: [id number] JOSEPH: 03/16/24- SUBM DR: Abi Sunshine DO ENTERED: 03/16/24 [facility] DR: SPEC TYPE: Surgical DEPT: S ORDERED: HE/8, Gross/Micro L4/4 ORDERED: HE/8, Gross/Micro L4/4 Pathological Diagnosis A, right colon biopsy: -Colonic mucosa with generally preserved mucosal glandular architecture without any abnormal stromal chronic inflammation, or any other specific features of microscopic colitis identified B, left colon biopsy: -Colonic mucosa with adequately preserved mucosal glandular architecture similar to the part A specimen except mild nonspecific denudation of surface epithelium, otherwise also without any abnormal stromal chronic inflammation, or any other obvious features of microscopic colitis observed C, transverse colon polyps removal: -Multiple fragments of tubular adenomatous polyps without high-grade dysplasia D, rectal polyp biopsy: -Serrated hyperplastic polyp in both fragments Specimen: [id number] Received: 03/16/24 Status: BLUE Neal Num: [id number] Spec Type: Surgical Subm Dr: Abi Sunshine, DO Tissues: A Colon Biopsy (RT RANDOM COLON BX) B Colon Biopsy (RANDOM LT) C Colon Biopsy (TRANSV POLYPS) D Colon Biopsy (RECTAL POLYP) Procedures: HE/Dagoberto, Gross/Micro L4/4 Patient: Rachel Mcgarry [id number] (Continued) Specimen: [id number] Received: 03/16/24 (Continued) Signed (signature on file) Philomena Grimm MD 03/18/24 1111 Specimen: [id number] Received: 03/16/24 Status: BLUE Neal Num: [id number] Spec Type: Surgical Subm Dr: Abi Sunshine DO Tissues: A Colon Biopsy (RT RANDOM COLON BX) B Colon Biopsy (RANDOM LT) C Colon Biopsy (TRANSV POLYPS) D Colon Biopsy (RECTAL POLYP) Procedures: Dagoberto, Gross/Micro L4/4 Patient: Rachel Mcgarry [id number] (Continued) Specimen: [id number] Received: 03/16/24 (Continued) Clinical Information Screening, diarrhea. Rule out microscopic colitis. Gross Description Received are 4 formalin filled containers each labeled with the patient's name, date of and specific specimen site. A. Further labeled right colon BX are 2 sarabia mucosal tissue fragments each measuring 0.3 x 0.2 x 0.1 cm, entirely submitted in A1. B. Further labeled left colon BX is a 0.4 x 0.3 x 0.1 cm sarabia mucosal tissue fragment, entirely submitted in B1. C. Further labeled transverse colon polyps are multiple sarabia polypoid tissue fragments measuring in aggregate 1.4 x 0.6 x 0.2 cm, entirely submitted in C1. D. Further labeled rectal polyp are 2 sarabia polypoid tissue fragments each measuring 0.3 x 0.2 x 0.1 cm, entirely submitted in D1. CPT Codes 88403S2 Specimen: [id number] Received: 03/16/24 Status: BLUE Neal Num: [id number] Spec Type: Surgical Subm Dr: Abi Sunshine DO Tissues: A Colon Biopsy (RT RANDOM COLON BX) B Colon Biopsy (RANDOM LT) C Colon Biopsy (TRANSV POLYPS) D Colon Biopsy (RECTAL POLYP) Procedures: Vik BETANCOURT/Claude L4/4 Patient: Rachel Mcgarry [id number] (Continued) Signed (signature on file) Philomena Grimm MD 03/18/24 1111 Normal [facility] XR lumbar spine AP/LAT/FLX/E XTon 03-02-2024 XR lumbar spine AP/LAT/FLX/EXT [facility] [place] [address] XRay Report Signed Patient: Rachel Mcgarry MR#: [id number] 1 : 1980 Acct:[id number] Age/Sex: 44 / F ADM Date: 03/02/24 Loc: Room: Type: [facility] Attending Dr: Kyler Miramontes MD Copies to: Kyler Miramontes MD Ordering Provider: Kyler Miramontes MD Date of Service: 03/02/24 XR/XR lumbar spine AP/LAT/FLX/EXT: M47.817 - Spondylosis without myelopathy or radiculopathy... LUMBAR SPINE - 4 views CLINICAL HISTORY: Low back pain based on both legs with numbness and tingling. Fall 2 weeks ago. COMPARISON: Lumbar spine 10/22/2020 FINDINGS: Vertebral body heights appear maintained. Mild endplate degenerative changes with mild disc space narrowing L3-L4. No pathological motion on flexion or extension views. XR/XR lumbar spine AP/LAT/FLX/EXT IMPRESSION: MILD DISC SPACE NARROWING L3-L4, UNCHANGED FROM PRIOR STUDY. Impression dictated by: Andrés Yeboah Jr., D.O.03/02/2024 2:52 PM Dictation Location: [place] [address] Transcribed By: [facility] 03/02/24 5012 Dictated By: Andrés Yeboah Jr, DO 03/02/24 1446 Signed By: 03/02/24 145 Normal [facility] US breast RT limitedon 02-08 US breast RT limited [facility] [place] [id number] Ultrasound Report Signed Patient: Rachel Mcgarry MR#: [id number] 1 : 1980 Acct:[id number] Age/Sex: 44 / F ADM Date: 02/09/24 Loc: [facility] Room: Type: [facility] Attending Dr: Ajit DEJESUS Ordering Provider: OLEG Sharp Date of Service: 02/09/24 US/US breast RT limited: Subareolar mass of right breast Copies to: OLEG Sharp US breast RT limited 02/09/2024 9:33 AM SIGNS AND SYMPTOMS: Focal asymmetry in right breast seen on previous mammogram, clear nipple discharge. COMPARISON: 02/04/2024 FINDINGS: Within the region of mammographic abnormality in the right breast at 4:00 position 3 cm from nipple there is a wider than tall septated cyst versus cluster of microcysts measuring 0.5 x 0.2 x 0.7 cm in greatest dimension. This corresponds to the mammographic abnormality. Mild ductal ectasia is noted in the retroareolar region. No intraductal filling defect is visualized. US/US breast RT limited IMPRESSION: Complex cyst versus cluster of microcysts is noted at the 4:00 position in the right breast corresponding to the mammographic abnormality. There is also ductal ectasia in the retroareolar region. These are probably benign. Six-month ultrasound follow-up is recommended to assess for stability. ASSESSMENT: BIRADS-3 Probably Benign RECOMMENDATION: Six-month ultrasound follow-up is of the right breast recommended to assess for stability. Impression dictated by: Dar Messina M.D.02/09/2024 9:33 AM Dictation Location: [facility] Tech: Janet Krause Transcribed By: ROSA MARIA 02/09/2433 Dictated By: Dar Messina II, MD 02/09/2429 Signed By: 02/09/2433 Normal [facility] MM screening mammo BI w/CADo n 02-04-2024 MM screening mammo BI w/CAD [place] [address] [address] Mammography Report Signed Patient: Rachel Mcgarry MR#: [id number] 1 : 1980 Acct:[id number] Age/Sex: 44 / F ADM Date: 02/04/24 Loc: [place] Room: Type: [facility] CLI Attending Dr: Ajit DEJESUS Copies to: OLEG Sharp Ordering Provider: OLEG Sharp Date of Service: 02/04/24 MM/MM screening mammo BI w/CAD: Screening mammogram for breast cancer CLINICAL DATA: Screening for malignancy. BILATERAL SCREENING MAMMOGRAMS - FULL FIELD DIGITAL WITH TOMOSYNTHESIS AND CAD Tomosynthesis craniocaudal and mediolateral oblique views of both breasts were obtained using low- dose digital technique. Comparison is made to prior studies from November 02, 2016 and January 19, 2022. This examination was reviewed with the aid of CAD. There are scattered fibroglandular densities. There is a right intramammary lymph node. In the retroareolar region on the right, there is a developing somewhat tubular asymmetry measuring 7 mm in greatest dimension. Duct ectasia is a possibility. There are no other developing masses, typically malignant calcifications or architectural distortion. There has been no significant interval change. MM/MM screening mammo BI w/CAD IMPRESSION: RIGHT RETROAREOLAR ASYMMETRY. FOLLOW-UP ULTRASOUND IS SUGGESTED. RESULT CODE: 0 Incomplete: Needs Additional Imaging Evaluation DENSITY CODE: 2 (approximately 25-50% glandular) FOLLOW UP: ADD The false-negative rate of mammography is approximately 10-percent. Management of a palpable abnormality must be based on clinical grounds. Patient was entered into a reminder system with a target due date for the next mammogram. Impression dictated by: Eda Yañez M.D.02/04/2024 2:28 PM Dictation Location: [facility] Transcribed By: ROSA MARIA 02/04/24 1428 Dictated By: Eda Yañez MD 02/04/24 1418 Signed By: 02/04/24 1428 Normal [facility] US renal BIon 01-21-2024 US renal BI [facility] [place] [address] Ultrasound Report Signed Patient: Rachel Mcgarry MR#: [id number] 1 : 1980 Acct:[id number] Age/Sex: 44 / F ADM Date: 01/21/24 Loc: Room: Type: [facility] Attending Dr: Ajit DEJESUS Ordering Provider: OLEG Sharp Date of Service: 01/21/24 US/US renal BI: Dark urine;Low serum creatinine Copies to: OLEG Sharp BILATERAL RENAL AND BLADDER ULTRASOUND CLINICAL HISTORY: Dark urine. Low serum creatinine. Urinary frequency. COMPARISON: CT abdomen and pelvis 10/08/2023 FINDINGS: Estimation of renal size is approximately 12.22 cm on the right and 11.25 cm on the left. No contour deforming mass, shadowing stone or hydronephrosis. The urinary bladder is partially distended with a volume of 555.69 ml. No shadowing stone or focal lesion. No significant postvoid residual. US/US renal BI IMPRESSION: No acute findings. Impression dictated by: Andrés Yeboah Jr., PercyOPanchito01/21/2024 2:50 PM Dictation Location: [place] [address] Tech: Mariza Garnett Transcribed By: ROSA MARIA 01/21/24 1450 Dictated By: Andrés Yeboah Jr, DO 01/21/24 1450 Signed By: 01/21/24 1450 Normal [facility] Alanine aminotransferase [En zymatic activity/volume] in Serum or PlasmaOrdered By: Ajit Pettit on 01-18-2024 ALT [Catalytic activity/Vol] 8 U/L Normal 7-52 [facility] Comment on above: Order Comment: Reaso n for Exam Type 2 diabetes mellitus without complication, without long- Performed By: #### C BC, CMP, FE and TIBC, LIPID, URMA, LDLD #### [facility] [address] [place] [address] Albumin [Mass/volume] in Ser um or Plasma by Bromocresol green (BCG) dye binding methoOrdered By: Ajit Pettit on 01-18-2024 Albumin BCG dye [Mass/Vol] 4.1 g/dL 3.5-5.7 [facility] Alkaline phosphatase [Enzyma tic activity/volume] in Serum or PlasmaOrdered By: Ajit Krupa on 01-18-2024 ALP [Catalytic activity/Vol] 58 U/L Normal 34-104 [facility] Comment on above: Order Comment: Reaso n for Exam Type 2 diabetes mellitus without complication, without long- Performed By: #### C BC, CMP, FE and TIBC, LIPID, URMA, LDLD #### [facility] [address] Aspartate aminotransferase [ Enzymatic activity/volume] in Serum or PlasmaOrdered By: Ajit Pettit on 01-18-2024 AST [Catalytic activity/Vol] 9 U/L Low 13-39 [facility] Comment on above: Order Comment: Reaso n for Exam Type 2 diabetes mellitus without complication, without long- Performed By: #### C BC, CMP, FE and TIBC, LIPID, URMA, LDLD #### [address] Automated basophil %Ordered By: Ajit Pettit on 01-18-2024 Basophils/100 WBC (Bld) 1.2 % Normal . [facility] Comment on above: Order Comment: Reaso n for Exam Type 2 diabetes mellitus without complication, without long- Performed By: #### C BC, CMP, FE and TIBC, LIPID, URMA, LDLD #### [address] Automated basophil countOrde red By: Ajit Pettit on 01-18-2024 Basophils (Bld) [#/Vol] 0.2 10*3/uL Normal 0.0-0.2 [facility] Comment on above: Order Comment: Reaso n for Exam Type 2 diabetes mellitus without complication, without long- Result Comment: PERF ORMED BY: [place] [address] PATHOLOGIST LOSS PREVENTION GUARD RIDGE HUERTA M.D. Performed By: #### C BC, CMP, FE and TIBC, LIPID, URMA, LDLD #### [facility] [address] Automated blood monocyte cou ntOrdered By: Ajit Spasic on 01-18-2024 Monocytes (Bld) [#/Vol] 0.9 10*3/uL High 0.0-0.8 [facility] Comment on above: Order Comment: Reaso n for Exam Type 2 diabetes mellitus without complication, without long- Performed By: #### C BC, CMP, FE and TIBC, LIPID, URMA, LDLD #### [facility] [address] Automated eosinophil %Ordere d By: Ajit Spasic on 01-18-2024 Eosinophils/100 WBC (Bld) 0.9 % Normal . [facility] Comment on above: Order Comment: Reaso n for Exam Type 2 diabetes mellitus without complication, without long- Performed By: #### C BC, CMP, FE and TIBC, LIPID, URMA, LDLD #### [address] Automated eosinophil countOr dered By: Ajit Harrietsic on 01-18-2024 Eosinophils (Bld) [#/Vol] 0.1 10*3/uL Normal 0.0-0.45 [facility] Comment on above: Order Comment: Reaso n for Exam Type 2 diabetes mellitus without complication, without long- Performed By: #### C BC, CMP, FE and TIBC, LIPID, URMA, LDLD #### [facility] [address] [place] [address] Automated monocyte %Ordered By: Ajit Spasic on 01-18-2024 Monocytes/100 WBC (Bld) 7.1 % Normal . [facility] Comment on above: Order Comment: Reaso n for Exam Type 2 diabetes mellitus without complication, without long- Performed By: #### C BC, CMP, FE and TIBC, LIPID, URMA, LDLD #### [address] Automated neutrophil %Ordere d By: Ajit Spasic on 01-18-2024 Neutrophils/100 WBC (Bld) 60.9 % Normal . [facility] Comment on above: Order Comment: Reaso n for Exam Type 2 diabetes mellitus without complication, without long- Performed By: #### C BC, CMP, FE and TIBC, LIPID, URMA, LDLD #### [facility] [address] [place] [address] [place] Bilirubin.total [Mass/volume ] in Serum or PlasmaOrdered By: Ajit Millanc on 01-18-2024 Bilirubin [Mass/Vol] 0.4 mg/dL Normal 0.3-1.0 [facility] Comment on above: Order Comment: Reaso n for Exam Type 2 diabetes mellitus without complication, without long- Performed By: #### C BC, CMP, FE and TIBC, LIPID, URMA, LDLD #### [facility] [address] [place] [address] [place] Calcium [Mass/volume] in Ser um or PlasmaOrdered By: Ajit Spasic on 01-18-2024 Calcium [Mass/Vol] 9.5 mg/dL Normal 8.6-10.3 [facility] Comment on above: Order Comment: Reaso n for Exam Type 2 diabetes mellitus without complication, without long- Performed By: #### C BC, CMP, FE and TIBC, LIPID, URMA, LDLD #### [facility] [address] [place] [address] [place] Carbon dioxide, total [Moles /volume] in Serum or PlasmaOrdered By: Ajit Spasic on 01-18-2024 CO2 [Moles/Vol] 22.0 mmol/L Normal 21.0-31.0 [facility] Comment on above: Order Comment: Reaso n for Exam Type 2 diabetes mellitus without complication, without long- Performed By: #### C BC, CMP, FE and TIBC, LIPID, URMA, LDLD #### [facility] [address] [place] [id number] [place] Chloride [Moles/volume] in S alissa or PlasmaOrdered By: Ajit Spasic on 01-18-2024 Chloride [Moles/Vol] 103 mmol/L Normal 98-107 [facility] Comment on above: Order Comment: Reaso n for Exam Type 2 diabetes mellitus without complication, without long- Performed By: #### C BC, CMP, FE and TIBC, LIPID, URMA, LDLD #### [facility] [address] [place] [address] [place] Cholesterol [Mass/volume] in Serum or PlasmaOrdered By: Ajit Pettit on 01-18-2024 Cholesterol [Mass/Vol] 188 mg/dL Normal 140-[address] [facility] Comment on above: Chol less than 200 m g/dl low riskChol 201-239 mg/dl borderline riskChol 240 mg/dl and greater high risk Order Comment: Reaso n for Exam Type 2 diabetes mellitus without complication, without long- Result Comment: Chol less than 200 mg/dl low risk Chol 201-239 mg/dl borderline risk Chol 240 mg/dl and greater high risk Performed By: #### C BC, CMP, FE and TIBC, LIPID, URMA, LDLD #### [facility] [address] Cholesterol in LDL Calc [Mas s/Vol]Ordered By: Ajit Pettit on 01-18-2024 Cholesterol in LDL [Mass/Vol] TNP [facility] Comment on above: Test not performed Cholesterol in LDL [Mass/vol ume] in Serum or PlasmaOrdered By: Ajit Pettit on 01-18-2024 Cholesterol in LDL [Mass/Vol] 97 mg/dL 0-100 [facility] Comment on above: LDL ATP III CLASSIFI CATIONLDL less than 100 mg/dL OptimalLDL 100-129 mg/dL Near or above optimalLDL 130-159 mg/dL Borderline highLDL 160-189 mg/dL HighLDL greater than 189 mg/dL Very high Cholesterol in VLDL Calc [Ma ss/Vol]Ordered By: Ajit Pettit on 01-18-2024 Cholesterol in VLDL [Mass/Vol] 88 mg/dL [facility] Complete Blood Count Auto Di ffon 01-18-2024 Mean Corpuscular HGB Conc 33.1 g/dL Normal 32.0-35.0 [facility] Comment on above: Order Comment: Reaso n for Exam Type 2 diabetes mellitus without complication, without long- Performed By: #### C BC, CMP, FE and TIBC, LIPID, URMA, LDLD #### [address] NRBC% 0.2 /100{WBC} Normal 0-0.5 [facility] Comment on above: Order Comment: Reaso n for Exam Type 2 diabetes mellitus without complication, without long- Performed By: #### C BC, CMP, FE and TIBC, LIPID, URMA, LDLD #### [address] Comprehensive Metabolic Pane mark 01-18-2024 Albumin [Mass/Vol] 4.1 g/dL Normal 3.5-5.7 [facility] Comment on above: Order Comment: Reaso n for Exam Type 2 diabetes mellitus without complication, without long- Performed By: #### C BC, CMP, FE and TIBC, LIPID, URMA, LDLD #### [address] GFR/1.73 sq M.predicted MDRD (S/P/Bld) [Vol rate/Area] mL/min/{1.73_m2} Normal [facility] Comment on above: Order Comment: Reaso n for Exam Type 2 diabetes mellitus without complication, without long- Performed By: #### C BC, CMP, FE and TIBC, LIPID, URMA, LDLD #### [address] Creatinine [Mass/volume] in Serum or PlasmaOrdered By: Ajit Pettit on 01-18-2024 Creatinine [Mass/Vol] 0.42 mg/dL Low 0.60-1.20 [facility] Comment on above: Order Comment: Reaso n for Exam Type 2 diabetes mellitus without complication, without long- Performed By: #### C BC, CMP, FE and TIBC, LIPID, URMA, LDLD #### [address] Erythrocyte distribution wid th [Ratio] by Automated countOrdered By: Ajit Pettit on 01-18-2024 Erythrocyte distribution width (RBC) [Ratio] 13.4 % Normal 11.9-15.3 [facility] Comment on above: Order Comment: Reaso n for Exam Type 2 diabetes mellitus without complication, without long- Performed By: #### C BC, CMP, FE and TIBC, LIPID, URMA, LDLD #### [facility] [address] [place] [address] [place] Erythrocytes [#/volume] in B lood by Automated countOrdered By: Ajit Pettit on 01-18-2024 RBC (Bld) [#/Vol] 4.67 10*6/uL Normal 3.60-5.00 [facility] Comment on above: Order Comment: Reaso n for Exam Type 2 diabetes mellitus without complication, without long- Performed By: #### C BC, CMP, FE and TIBC, LIPID, URMA, LDLD #### [facility] [address] [place] [address] [place] Glucose [Mass/volume] in Ser um or PlasmaOrdered By: Ajit Pettit on 01-18-2024 Glucose [Mass/Vol] 107 mg/dL High 70-100 [facility] Comment on above: ADA recommended refe rence rangeRandom Glucose Reference Range is dependent on time and content of last meal. Glucose of more than 200 mg/dL in a nonstressed, ambulatory subject supports the diagnosis of Diabetes Mellitus. Order Comment: Reaso n for Exam Type 2 diabetes mellitus without complication, without long- Result Comment: [place] om Glucose Reference Range is dependent on time and content of last meal. Glucose of more than 200 mg/dL in a nonstressed, ambulatory subject supports the diagnosis of Diabetes Mellitus. ADA recommended reference range Performed By: #### C BC, CMP, FE and TIBC, LIPID, URMA, LDLD #### [facility] [address] [place] [id number] [place] Hematocrit [Volume Fraction] of Blood by Automated countOrdered By: Ajit Pettit on 01-18-2024 Hematocrit (Bld) [Volume fraction] 40.8 % Normal 34.0-46.4 [facility] Comment on above: Order Comment: Reaso n for Exam Type 2 diabetes mellitus without complication, without long- Performed By: #### C BC, CMP, FE and TIBC, LIPID, URMA, LDLD #### [facility] [address] Hemoglobin [Mass/volume] in BloodOrdered By: Ajit Pettit on 01-18-2024 Hemoglobin (Bld) [Mass/Vol] 13.5 g/dL Normal 11.8-15.4 [facility] Comment on above: Order Comment: Reaso n for Exam Type 2 diabetes mellitus without complication, without long- Performed By: #### C BC, CMP, FE and TIBC, LIPID, URMA, LDLD #### [facility] [address] Iron [Mass/volume] in Serum or PlasmaOrdered By: Ajit Millanc on 01-18-2024 Iron [Mass/Vol] 89 ug/dL Normal 50-212 [facility] Comment on above: Order Comment: Reaso n for Exam Type 2 diabetes mellitus without complication, without long- Performed By: #### C BC, CMP, FE and TIBC, LIPID, URMA, LDLD #### [place] [id number] [facility] Iron and TIBC Profileon 01-02 % Iron Saturation 23.8 % Normal 20-50 [facility] Comment on above: Order Comment: Reaso n for Exam Type 2 diabetes mellitus without complication, without long- Performed By: #### C BC, CMP, FE and TIBC, LIPID, URMA, LDLD #### [facility] [address] [place] [address] Total Iron Binding Capacity 374 ug/dL Normal 255-450 [facility] Comment on above: Order Comment: Reaso n for Exam Type 2 diabetes mellitus without complication, without long- Performed By: #### C BC, CMP, FE and TIBC, LIPID, URMA, LDLD #### [place] [id number] [place] Iron binding capacity [Mass/ volume] in Serum or PlasmaOrdered By: Ajit Pettit on 01-18-2024 Iron binding capacity [Mass/Vol] 374 ug/dL 255-450 [facility] Iron saturation [Mass Fracti on] in Serum or PlasmaOrdered By: Ajit Pettit on 01-18-2024 Iron saturation [Mass fraction] 23.8 % 20-50 [facility] LDL Cholesterol Measuredon 0 01-18-2024 LDL Cholesterol Measured 97 mg/dL Normal 0-100 [facility] Comment on above: Order Comment: Reaso n for Exam Type 2 diabetes mellitus without complication, without long- Result Comment: LDL ATP III CLASSIFICATION LDL less than 100 mg/dL Optimal LDL 100-129 mg/dL Near or above optimal LDL 130-159 mg/dL Borderline high LDL 160-189 mg/dL High LDL greater than 189 mg/dL Very high PERFORMED BY: [place] [address] PATHOLOGIST LOSS PREVENTION GUARD RIDGE HUERTA M.D. Performed By: #### C BC, CMP, FE and TIBC, LIPID, URMA, LDLD #### [facility] [address] [place] [address] Leukocytes [#/volume] correc cherie for nucleated erythrocytes in Blood by Automated counOrdered By: Ajit Pettit on 01-18-2024 WBC corrected for nucl RBC Auto (Bld) [#/Vol] 12.4 10*3/uL 3.8-11.6 [facility] Leukocytes [#/volume] in Blo od by Automated countOrdered By: Ajit Pettit on 01-18-2024 WBC (Bld) [#/Vol] 12.4 10*3/uL High 3.8-11.6 [facility] Comment on above: Order Comment: Reaso n for Exam Type 2 diabetes mellitus without complication, without long- Performed By: #### C BC, CMP, FE and TIBC, LIPID, URMA, LDLD #### [facility] [address] Lipid Panelon 01-18-2024 LDL Cholesterol,Calculated Not performed Normal 0-100 [facility] Comment on above: Order Comment: Reaso n for Exam Type 2 diabetes mellitus without complication, without long- Performed By: #### C BC, CMP, FE and TIBC, LIPID, URMA, LDLD #### [facility] [address] Triglyceride w/Reflex 441 mg/dL High 0-149 [facility] Comment on above: Order Comment: Reaso n [...] be calculated and resulted. Performed By: #### C BC, CMP, FE and TIBC, LIPID, URMA, LDLD #### [address] VLDL CHOLESTEROL 88 mg/dL Normal [facility] Comment on above: Order Comment: Reaso n for Exam Type 2 diabetes mellitus without complication, without long- Performed By: #### C BC, CMP, FE and TIBC, LIPID, URMA, LDLD #### [address] Lymphocytes [#/volume] in Bl ood by Automated countOrdered By: Ajit Pettit on 01-18-2024 Lymphocytes (Bld) [#/Vol] 3.7 10*3/uL Normal 1.00-4.8 [facility] Comment on above: Order Comment: Reaso n for Exam Type 2 diabetes mellitus without complication, without long- Performed By: #### C BC, CMP, FE and TIBC, LIPID, URMA, LDLD #### [address] Lymphocytes/100 leukocytes i n Blood by Automated countOrdered By: Ajit Pettit on 01-18-2024 Lymphocytes/100 WBC (Bld) 29.9 % Normal . [facility] Comment on above: Order Comment: Reaso n for Exam Type 2 diabetes mellitus without complication, without long- Performed By: #### C BC, CMP, FE and TIBC, LIPID, URMA, LDLD #### [address] MCH [Entitic mass] by Automa cherie countOrdered By: Ajit Pettit on 01-18-2024 MCH (RBC) [Entitic mass] 28.9 pg Normal 24.7-34.3 [facility] Comment on above: Order Comment: Reaso n for Exam Type 2 diabetes mellitus without complication, without long- Performed By: #### C BC, CMP, FE and TIBC, LIPID, URMA, LDLD #### [facility] [address] MCHC Auto (RBC) [Mass/Vol]Or dered By: Ajit Pettit on 01-18-2024 MCHC (RBC) [Mass/Vol] 33.1 g/dL 32.0-35.0 [facility] MCV [Entitic volume] by Auto mated countOrdered By: Ajit Pettit on 01-18-2024 MCV (RBC) [Entitic vol] 87.3 fL Normal 80-100 [facility] Comment on above: Order Comment: Reaso n for Exam Type 2 diabetes mellitus without complication, without long- Performed By: #### C BC, CMP, FE and TIBC, LIPID, URMA, LDLD #### [facility] [address] Microalbumin [Mass/volume] i n UrineOrdered By: Ajit Pettit on 01-18-2024 Albumin DL <= 20 mg/L (U) [Mass/Vol] 0.8 mg/dL Normal 0.0-1.8 [facility] Comment on above: Order Comment: Reaso n for Exam Type 2 diabetes mellitus without complication, without long- Result Comment: PERF ORMED BY: [place] [address] PATHOLOGIST LOSS PREVENTION GUARD RIDGE HUERTA M.D. Performed By: #### C BC, CMP, FE and TIBC, LIPID, URMA, LDLD #### [address] Neutrophils [#/volume] in Bl ood by Automated countOrdered By: Ajit Pettit on 01-18-2024 Neutrophils (Bld) [#/Vol] 7.6 10*3/uL Normal 1.8-7.7 [facility] Comment on above: Order Comment: Reaso n for Exam Type 2 diabetes mellitus without complication, without long- Performed By: #### C BC, CMP, FE and TIBC, LIPID, URMA, LDLD #### [facility] [address] No Panel InformationOrdered By: Ajit Pettit on 01-18-2024 Estimated GFR (CKD-EPI) > 60.0 mL/Min [facility] Creatinine Clearance (Chem N/A [facility] Nucleated erythrocytes [Pres ence] in Blood by Automated countOrdered By: Ajit Pettit on 01-18-2024 Nucleated RBC Auto Ql (Bld) 0.2 /100{WBC} 0-0.5 [facility] Platelet mean volume [Entiti c volume] in Blood by Automated countOrdered By: Ajit Pettit on 01-18-2024 Platelet mean volume (Bld) [Entitic vol] 8.8 fL Normal 6.3-10.7 [facility] Comment on above: Order Comment: Reaso n for Exam Type 2 diabetes mellitus without complication, without long- Performed By: #### C BC, CMP, FE and TIBC, LIPID, URMA, LDLD #### [facility] [address] [place] [address] [place] Platelets [#/volume] in Bloo d by Automated countOrdered By: Ajit Pettit on 01-18-2024 Platelets (Bld) [#/Vol] 275 10*3/uL Normal 150-450 [facility] Comment on above: Order Comment: Reaso n for Exam Type 2 diabetes mellitus without complication, without long- Performed By: #### C BC, CMP, FE and TIBC, LIPID, URMA, LDLD #### [facility] [address] [place] [address] [place] Potassium [Moles/volume] in Serum or PlasmaOrdered By: Ajit Pettit on 01-18-2024 Potassium [Moles/Vol] 4.3 mmol/L Normal 3.5-5.1 [facility] Comment on above: Order Comment: Reaso n for Exam Type 2 diabetes mellitus without complication, without long- Performed By: #### C BC, CMP, FE and TIBC, LIPID, URMA, LDLD #### [facility] [address] [place] [address] [place] Protein [Mass/volume] in Ser um or PlasmaOrdered By: Ajit Pettit on 01-18-2024 Protein [Mass/Vol] 6.6 g/dL Normal 6.4-8.9 [facility] Comment on above: Order Comment: Reaso n for Exam Type 2 diabetes mellitus without complication, without long- Performed By: #### C BC, CMP, FE and TIBC, LIPID, URMA, LDLD #### [facility] [address] Serum globulin measurement b y calculation (mass/volume)Ordered By: Ajit Pettit on 01-18-2024 Globulin (S) [Mass/Vol] 2.5 g/dL Normal [facility] Comment on above: Order Comment: Reaso n for Exam Type 2 diabetes mellitus without complication, without long- Performed By: #### C BC, CMP, FE and TIBC, LIPID, URMA, LDLD #### [facility] [address] Serum or plasma albumin/glob ulin mass ratioOrdered By: Ajit Pettit on 01-18-2024 Albumin/Globulin [Mass ratio] 1.6 {ratio} Normal [facility] Comment on above: Order Comment: Reaso n for Exam Type 2 diabetes mellitus without complication, without long- Performed By: #### C BC, CMP, FE and TIBC, LIPID, URMA, LDLD #### [facility] [address] Serum or plasma anion gap de terminationOrdered By: Ajit Pettit on 01-18-2024 Anion gap [Moles/Vol] 15.3 mmol/L High 6.0-15.[address] [facility] Comment on above: Order Comment: Reaso n for Exam Type 2 diabetes mellitus without complication, without long- Performed By: #### C BC, CMP, FE and TIBC, LIPID, URMA, LDLD #### [facility] [address] Serum or plasma high density lipoprotein (HDL) cholesterol measurementOrdered By: Ajit Pettit on 01-18-2024 Cholesterol in HDL [Mass/Vol] 37 mg/dL Normal 23-92 [facility] Comment on above: HDL CHOL ATP-III CLA SSIFICATION Cardiovascular RiskHDL > or equal to 60 mg/dL LOWHDL < 40 mg/dL HIGH Order Comment: Reaso n for Exam Type 2 diabetes mellitus without complication, without long- Result Comment: HDL CHOL ATP-III CLASSIFICATION Cardiovascular Risk HDL > or equal to 60 mg/dL LOW HDL < 40 mg/dL HIGH Performed By: #### C BC, CMP, FE and TIBC, LIPID, URMA, LDLD #### [facility] [address] [place] [address] Serum or plasma total choles terol/high density lipoprotein (HDL) cholesterol mass ratOrdered By: Ajit Pettit on 01-18-2024 Cholesterol.total/Suellen sterol in HDL [Mass ratio] 5.1 {ratio} Normal <5.0 [facility] Comment on above: Order Comment: Reaso n for Exam Type 2 diabetes mellitus without complication, without long- Performed By: #### C BC, CMP, FE and TIBC, LIPID, URMA, LDLD #### [facility] [address] [place] [address] Result Comment: PERF ORMED BY: [place] [address] PATHOLOGIST LOSS PREVENTION GUARD RIDGE HUERTA M.D. Sodium [Moles/volume] in Ser um or PlasmaOrdered By: Ajit Pettit on 01-18-2024 Sodium [Moles/Vol] 136 mmol/L Normal 136-145 [facility] Comment on above: Order Comment: Reaso n for Exam Type 2 diabetes mellitus without complication, without long- Performed By: #### C BC, CMP, FE and TIBC, LIPID, URMA, LDLD #### [facility] [address] Transferrin [Mass/volume] in Serum or PlasmaOrdered By: Ajit Pettit on 01-18-2024 Transferrin [Mass/Vol] 267 mg/dL Normal 203-[address] [facility] Comment on above: Order Comment: Reaso n for Exam Type 2 diabetes mellitus without complication, without long- Performed By: #### C BC, CMP, FE and TIBC, LIPID, URMA, LDLD #### [facility] [address] [place] [id number] [facility] Triglyceride [Mass/volume] i n Serum or PlasmaOrdered By: Ajit Pettit on 01-18-2024 Triglyceride [Mass/Vol] 441 mg/dL 0-149 [facility] Comment on above: If the triglyceride [...] Serum or PlasmaOrdered By: Ajit Pettit on 01-18-2024 Urea nitrogen [Mass/Vol] 10 mg/dL Normal 7- [facility] Comment on above: Order Comment: Reaso n for Exam Type 2 diabetes mellitus without complication, without long- Performed By: #### C BC, CMP, FE and TIBC, LIPID, URMA, LDLD #### [facility] [address] [place] [id number] [facility] Activated partial thrombopla stin time (aPTT) in platelet poor plasma by coagulation aOrdered By: Diego Noble on 10-16-2023 aPTT Coag (PPP) [Time] 28.2 s 25.1-36.[address] [facility] Comment on above: A hematocrit value g reater than 55% may lead to inaccurate results in coagulation testing. Patients having hematocrit values >55% require a special collection tube for coagulation studies. Please contact the laboratory at [phone] for redraw instructions. Alanine aminotransferase [En zymatic activity/volume] in Serum or PlasmaOrdered By: Diego Noble on 10-16-2023 ALT [Catalytic activity/Vol] 10 U/L Normal 7-52 [facility] Comment on above: Performed By: #### C BC, CMP, FE and TIBC, LIPID, URMA, LDLD #### [facility] [address] Albumin [Mass/volume] in Ser um or Plasma by Bromocresol green (BCG) dye binding methoOrdered By: Diego Noble on 10-16-2023 Albumin BCG dye [Mass/Vol] 3.7 g/dL 3.5-5.7 [facility] Alkaline phosphatase [Enzyma tic activity/volume] in Serum or PlasmaOrdered By: Diego Noble on 10-16-2023 ALP [Catalytic activity/Vol] 84 U/L Normal 34-104 [facility] Comment on above: Performed By: #### C BC, CMP, FE and TIBC, LIPID, URMA, LDLD #### [facility] [address] Aspartate aminotransferase [ Enzymatic activity/volume] in Serum or PlasmaOrdered By: Diego Noble on 10-16-2023 AST [Catalytic activity/Vol] 14 U/L Normal 13-39 [facility] Comment on above: Performed By: #### C BC, CMP, FE and TIBC, LIPID, URMA, LDLD #### [address] Automated basophil %Ordered By: Diego Noble on 10-16-2023 Basophils/100 WBC (Bld) 2.6 % Normal . [facility] Comment on above: Performed By: #### C BC, CMP, FE and TIBC, LIPID, URMA, LDLD #### [address] Automated basophil countOrde red By: Diego Noble on 10-16-2023 Basophils (Bld) [#/Vol] 0.4 10*3/uL High 0.0-0.2 [facility] Comment on above: Result Comment: PERF ORMED BY: [place] [address] PATHOLOGIST LOSS PREVENTION GUARD RIDGE HUERTA M.D. Performed By: #### C BC, CMP, FE and TIBC, LIPID, URMA, LDLD #### [facility] [address] Automated blood monocyte cou ntOrdered By: Diego Noble on 10-16-2023 Monocytes (Bld) [#/Vol] 0.9 10*3/uL High 0.0-0.8 [facility] Comment on above: Performed By: #### C BC, CMP, FE and TIBC, LIPID, URMA, LDLD #### [facility] [address] Automated eosinophil %Ordere d By: Diego Noble on 10-16-2023 Eosinophils/100 WBC (Bld) 3.3 % Normal . [facility] Comment on above: Performed By: #### C BC, CMP, FE and TIBC, LIPID, URMA, LDLD #### [address] Automated eosinophil countOr dered By: Diego Noble on 10-16-2023 Eosinophils (Bld) [#/Vol] 0.5 10*3/uL High 0.0-0.45 [facility] Comment on above: Performed By: #### C BC, CMP, FE and TIBC, LIPID, URMA, LDLD #### [address] Automated monocyte %Ordered By: Diego Noble on 10-16-2023 Monocytes/100 WBC (Bld) 6.3 % Normal . [facility] Comment on above: Performed By: #### C BC, CMP, FE and TIBC, LIPID, URMA, LDLD #### [address] Automated neutrophil %Ordere d By: Diego Noble on 10-16-2023 Neutrophils/100 WBC (Bld) 53.8 % Normal . [facility] Comment on above: Performed By: #### C BC, CMP, FE and TIBC, LIPID, URMA, LDLD #### [address] Bilirubin.total [Mass/volume ] in Serum or PlasmaOrdered By: Diego Noble on 10-16-2023 Bilirubin [Mass/Vol] 0.2 mg/dL Low 0.3-1.0 [facility] Comment on above: Performed By: #### C BC, CMP, FE and TIBC, LIPID, URMA, LDLD #### [address] Blood Cultureon 10-16-2023 Bacteria identified Cx Nom (Bld) NO GROWTH 5 DAYS PERFORMED BY: [place] [address] PATHOLOGIST LOSS PREVENTION GUARD RIDGE HUERTA M.D. Normal [facility] Comment on above: Performed By: #### C USTOOL #### [address] Bacteria identified Cx Nom (Bld) NO GROWTH 5 DAYS PERFORMED BY: [place] [address] PATHOLOGIST LOSS PREVENTION GUARD RIDGE HUERTA M.D. Normal [facility] Comment on above: Performed By: #### C USTOOL #### [place] [address] [place] Calcium [Mass/volume] in Ser um or PlasmaOrdered By: Diego Noble on 10-16-2023 Calcium [Mass/Vol] 9.1 mg/dL Normal 8.6-10.3 [facility] Comment on above: Performed By: #### C BC, CMP, FE and TIBC, LIPID, URMA, LDLD #### [place] [address] [place] Carbon dioxide, total [Moles /volume] in Serum or PlasmaOrdered By: Diego Noble on 10-16-2023 CO2 [Moles/Vol] 25.9 mmol/L Normal 21.0-31.0 [facility] Comment on above: Performed By: #### C BC, CMP, FE and TIBC, LIPID, URMA, LDLD #### [place] [address] [place] Chloride [Moles/volume] in S alissa or PlasmaOrdered By: Diego Noble on 10-16-2023 Chloride [Moles/Vol] 101 mmol/L Normal 98-107 [facility] Comment on above: Performed By: #### C BC, CMP, FE and TIBC, LIPID, URMA, LDLD #### [facility] [address] Complete Blood Count Auto Di ffon 10-16-2023 Mean Corpuscular HGB Conc 34.1 g/dL Normal 32.0-35.0 [facility] Comment on above: Performed By: #### C BC, CMP, FE and TIBC, LIPID, URMA, LDLD #### [facility] [address] Monocytes/100 WBC (Bld) 20.62 % High 0.00-20.00 [facility] Comment on above: Result Comment: For adults in ED, MDW > 20.0 may be associated with a higher risk of sepsis during the first 12 hrs of hospital admission Performed By: #### C BC, CMP, FE and TIBC, LIPID, URMA, LDLD #### [address] NRBC% 0.1 /100{WBC} Normal 0-0.5 [facility] Comment on above: Performed By: #### C BC, CMP, FE and TIBC, LIPID, URMA, LDLD #### [address] Comprehensive Metabolic Pane mark 10-16-2023 Albumin [Mass/Vol] 3.7 g/dL Normal 3.5-5.7 [facility] Comment on above: Performed By: #### C BC, CMP, FE and TIBC, LIPID, URMA, LDLD #### [address] Creatinine Clr Calc Pharmacy 134.19 Normal [facility] Comment on above: Result Comment: PERF ORMED BY: [place] [address] PATHOLOGIST LOSS PREVENTION GUARD JIANLAN SUN M.D. Performed By: #### C BC, CMP, FE and TIBC, LIPID, URMA, LDLD #### [facility] [address] GFR/1.73 sq M.predicted MDRD (S/P/Bld) [Vol rate/Area] mL/min/{1.73_m2} Normal [facility] Comment on above: Performed By: #### C BC, CMP, FE and TIBC, LIPID, URMA, LDLD #### [facility] [address] Creatinine [Mass/volume] in Serum or PlasmaOrdered By: Diego Noble on 10-16-2023 Creatinine [Mass/Vol] 0.55 mg/dL Low 0.60-1.20 [facility] Comment on above: Performed By: #### C BC, CMP, FE and TIBC, LIPID, URMA, LDLD #### [facility] [address] Erythrocyte distribution wid th [Ratio] by Automated countOrdered By: Diego Noble on 10-16-2023 Erythrocyte distribution width (RBC) [Ratio] 13.0 % Normal 11.9-15.3 [facility] Comment on above: Performed By: #### C BC, CMP, FE and TIBC, LIPID, URMA, LDLD #### [facility] [address] Erythrocytes [#/volume] in B lood by Automated countOrdered By: Diego Noble on 10-16-2023 RBC (Bld) [#/Vol] 3.84 10*6/uL Normal 3.60-5.00 [facility] Comment on above: Performed By: #### C BC, CMP, FE and TIBC, LIPID, URMA, LDLD #### [facility] [address] Glucose [Mass/volume] in Ser um or PlasmaOrdered By: Diego Noble on 10-16-2023 Glucose [Mass/Vol] 197 mg/dL High 70-100 [facility] Comment on above: ADA recommended refe rence rangeRandom Glucose Reference Range is dependent on time and content of last meal. Glucose of more than 200 mg/dL in a nonstressed, ambulatory subject supports the diagnosis of Diabetes Mellitus. Result Comment: [place] Glucose Reference Range is dependent on time and content of last meal. Glucose of more than 200 mg/dL in a nonstressed, ambulatory subject supports the diagnosis of Diabetes Mellitus. ADA recommended reference range Performed By: #### C BC, CMP, FE and TIBC, LIPID, URMA, LDLD #### [address] Hematocrit [Volume Fraction] of Blood by Automated countOrdered By: Diego Noble on 10-16-2023 Hematocrit (Bld) [Volume fraction] 34.0 % Normal 34.0-46.4 [facility] Comment on above: Performed By: #### C BC, CMP, FE and TIBC, LIPID, URMA, LDLD #### [address] Hemoglobin [Mass/volume] in BloodOrdered By: Diego Noble on 10-16-2023 Hemoglobin (Bld) [Mass/Vol] 11.6 g/dL Low 11.8-15.4 [facility] Comment on above: Performed By: #### C BC, CMP, FE and TIBC, LIPID, URMA, LDLD #### [address] INR in Platelet poor plasma by Coagulation assayOrdered By: Diego Noble on 10-16-2023 INR Coag (PPP) [Relative time] 0.9 {INR} Normal [facility] Comment on above: INR Therapeutic Rang [...] with mechanical heart valves: 3 - 4.5 Result Comment: INR Therapeutic Range A) Pre- [...] - 4.5 Performed By: #### C BC, CMP, FE and TIBC, LIPID, URMA, LDLD #### [facility] [address] [place] [address] Lactate [Moles/volume] in Se rum or PlasmaOrdered By: Diego Noble on 10-16-2023 Lactate [Moles/Vol] 2.1 mmol/L Off scale high 0.5-2.2 [facility] Comment on above: Critical Result : Ca lled to and read back by: MACO BECK at: 10/16/2023 12:33:20 by:ECTOR Result Comment: Crit ical Result : Called to and read back by: MACO BECK at: 10/16/2023 12:33:20 by:ECTOR PERFORMED BY: [place] [address] PATHOLOGIST LOSS PREVENTION GUARD RIDGE HUERTA M.D. Performed By: #### C USTOOL #### [address] Leukocytes [#/volume] correc cherie for nucleated erythrocytes in Blood by Automated counOrdered By: Diego Noble on 10-16-2023 WBC corrected for nucl RBC Auto (Bld) [#/Vol] 14.3 10*3/uL 3.8-11.6 [facility] Leukocytes [#/volume] in Blo od by Automated countOrdered By: Diego Noble on 10-16-2023 WBC (Bld) [#/Vol] 14.3 10*3/uL High 3.8-11.6 [facility] Comment on above: Performed By: #### C BC, CMP, FE and TIBC, LIPID, URMA, LDLD #### [facility] [address] [place] [address] [place] Lymphocytes [#/volume] in Bl ood by Automated countOrdered By: Diego Noble on 10-16-2023 Lymphocytes (Bld) [#/Vol] 4.9 10*3/uL High 1.00-4.8 [facility] Comment on above: Performed By: #### C BC, CMP, FE and TIBC, LIPID, URMA, LDLD #### [facility] [address] Lymphocytes/100 leukocytes i n Blood by Automated countOrdered By: Diego Noble on 10-16-2023 Lymphocytes/100 WBC (Bld) 34.0 % Normal . [facility] Comment on above: Performed By: #### C BC, CMP, FE and TIBC, LIPID, URMA, LDLD #### [facility] [address] MCH [Entitic mass] by Automa cherie countOrdered By: Deigo Noble on 10-16-2023 MCH (RBC) [Entitic mass] 30.3 pg Normal 24.7-34.3 [facility] Comment on above: Performed By: #### C BC, CMP, FE and TIBC, LIPID, URMA, LDLD #### [address] MCHC Auto (RBC) [Mass/Vol]Or dered By: Diego Noble on 10-16-2023 MCHC (RBC) [Mass/Vol] 34.1 g/dL 32.0-35.0 [facility] MCV [Entitic volume] by Auto mated countOrdered By: Diego Noble on 10-16-2023 MCV (RBC) [Entitic vol] 88.7 fL Normal 80-100 F [facility] Comment on above: Performed By: #### C BC, CMP, FE and TIBC, LIPID, URMA, LDLD #### [facility] [address] [place] [address] Monocyte distribution width [Entitic volume] in Blood by AutomatedOrdered By: Diego Noble on 10-16-2023 Monocyte distribution width Auto (Bld) [Entitic vol] 20.62 % 0.00-20.00 [facility] Comment on above: For adults in ED, MD W > 20.0 may be associated with a higher risk of sepsis during the first 12 hrs of hospital admission Neutrophils [#/volume] in Bl ood by Automated countOrdered By: Diego Noble on 10-16-2023 Neutrophils (Bld) [#/Vol] 7.7 10*3/uL Normal 1.8-7.7 [facility] Comment on above: Performed By: #### C BC, CMP, FE and TIBC, LIPID, URMA, LDLD #### [address] No Panel InformationOrdered By: Diego Noble on 10-16-2023 Estimated GFR (CKD-EPI) > 60.0 mL/Min [facility] Creatinine Clearance (Chem 134.19 [facility] Nucleated erythrocytes [Pres ence] in Blood by Automated countOrdered By: Diego Noble on 10-16-2023 Nucleated RBC Auto Ql (Bld) 0.1 /100{WBC} 0-0.5 [facility] Partial Thromboplastin Timeo n 10-16-2023 aPTT Coag (Bld) [Time] 28.2 s Normal 25.1-36.5 [facility] Comment on above: Result Comment: A he matocrit value greater than 55% may lead to inaccurate results in coagulation testing. Patients having hematocrit values >55% require a special collection tube for coagulation studies. Please contact the laboratory at [phone] for redraw instructions. PERFORMED BY: [place] [address] PATHOLOGIST LOSS PREVENTION GUARD RIDGE HUERTA M.D. Performed By: #### C BC, CMP, FE and TIBC, LIPID, URMA, LDLD #### [place] [address] [place] Platelet mean volume [Entiti c volume] in Blood by Automated countOrdered By: Diego Noble on 10-16-2023 Platelet mean volume (Bld) [Entitic vol] 6.7 fL Normal 6.3-10.7 [facility] Comment on above: Performed By: #### C BC, CMP, FE and TIBC, LIPID, URMA, LDLD #### [address] Platelets [#/volume] in Bloo d by Automated countOrdered By: Diego Noble on 10-16-2023 Platelets (Bld) [#/Vol] 454 10*3/uL High 150-450 [facility] Comment on above: Performed By: #### C BC, CMP, FE and TIBC, LIPID, URMA, LDLD #### [facility] [address] [place] [id number] [place] Potassium [Moles/volume] in Serum or PlasmaOrdered By: Diego Noble on 10-16-2023 Potassium [Moles/Vol] 4.3 mmol/L Normal 3.5-5.1 [facility] Comment on above: Performed By: #### C BC, CMP, FE and TIBC, LIPID, URMA, LDLD #### [facility] [address] [place] [address] [place] Protein [Mass/volume] in Ser um or PlasmaOrdered By: Diego Noble on 10-16-2023 Protein [Mass/Vol] 6.3 g/dL Low 6.4-8.9 [facility] Comment on above: Performed By: #### C BC, CMP, FE and TIBC, LIPID, URMA, LDLD #### [facility] [address] [place] [id number] [place] Prothrombin time (PT)Ordered By: Diego Noble on 10-16-2023 PT Coag (PPP) [Time] 9.9 s Normal 9.0-12.9 [facility] Comment on above: A hematocrit value g reater than 55% may lead to inaccurate results in coagulation testing. Patients having hematocrit values >55% require a special collection tube for coagulation studies. Please contact the laboratory at [phone] for redraw instructions. Result Comment: A he matocrit value greater than 55% may lead to inaccurate results in coagulation testing. Patients having hematocrit values >55% require a special collection tube for coagulation studies. Please contact the laboratory at [phone] for redraw instructions. Performed By: #### C BC, CMP, FE and TIBC, LIPID, URMA, LDLD #### [facility] [address] [place] [id number] [place] Serum globulin measurement b y calculation (mass/volume)Ordered By: Diego Noble on 10-16-2023 Globulin (S) [Mass/Vol] 2.6 g/dL Normal F [facility] Comment on above: Performed By: #### C BC, CMP, FE and TIBC, LIPID, URMA, LDLD #### [facility] [address] Serum or plasma albumin/glob ulin mass ratioOrdered By: Diego Noble on 10-16-2023 Albumin/Globulin [Mass ratio] 1.4 {ratio} Normal [facility] Comment on above: Performed By: #### C BC, CMP, FE and TIBC, LIPID, URMA, LDLD #### [facility] [address] Serum or plasma anion gap de terminationOrdered By: Diego Noble on 10-16-2023 Anion gap [Moles/Vol] 14.4 mmol/L Normal 6.0-15.[address] [facility] Comment on above: Performed By: #### C BC, CMP, FE and TIBC, LIPID, URMA, LDLD #### [facility] [address] Sodium [Moles/volume] in Ser um or PlasmaOrdered By: Diego Noble on 10-16-2023 Sodium [Moles/Vol] 137 mmol/L Normal 136-145 [facility] Comment on above: Performed By: #### C BC, CMP, FE and TIBC, LIPID, URMA, LDLD #### [facility] [address] Urea nitrogen [Mass/volume] in Serum or PlasmaOrdered By: Diego Noble on 10-16-2023 Urea nitrogen [Mass/Vol] 12 mg/dL Normal 7-25 [facility] Comment on above: Performed By: #### C BC, CMP, FE and TIBC, LIPID, URMA, LDLD #### [facility] [address] Automated basophil %Ordered By: Ilene Lopez on 10-09-2023 Basophils/100 WBC (Bld) 0.4 % Normal . [facility] Comment on above: Performed By: #### C BC, CMP, FE and TIBC, LIPID, URMA, LDLD #### [address] Automated basophil countOrde red By: Ilene Lopez on 10-09-2023 Basophils (Bld) [#/Vol] 0.1 10*3/uL Normal 0.0-0.2 [facility] Comment on above: Result Comment: PERF ORMED BY: [place] [address] PATHOLOGIST LOSS PREVENTION GUARD RIDGE HUERTA M.D. Performed By: #### C BC, CMP, FE and TIBC, LIPID, URMA, LDLD #### [address] Automated blood monocyte cou ntOrdered By: Ilene Lopez on 10-09-2023 Monocytes (Bld) [#/Vol] 1.3 10*3/uL High 0.0-0.8 [facility] Comment on above: Performed By: #### C BC, CMP, FE and TIBC, LIPID, URMA, LDLD #### [address] Automated eosinophil %Ordere d By: Ilene Lopez on 10-09-2023 Eosinophils/100 WBC (Bld) 3.5 % Normal . [facility] Comment on above: Performed By: #### C BC, CMP, FE and TIBC, LIPID, URMA, LDLD #### [address] Automated eosinophil countOr dered By: Ilene Lopez on 10-09-2023 Eosinophils (Bld) [#/Vol] 0.5 10*3/uL High 0.0-0.45 [facility] Comment on above: Performed By: #### C BC, CMP, FE and TIBC, LIPID, URMA, LDLD #### [place] [id number] [place] Automated monocyte %Ordered By: Ilene Lopez on 10-09-2023 Monocytes/100 WBC (Bld) 9.5 % Normal . [place] [facility] Comment on above: Performed By: #### C BC, CMP, FE and TIBC, LIPID, URMA, LDLD #### [address] Automated neutrophil %Ordere d By: Ilene Lopez on 10-09-2023 Neutrophils/100 WBC (Bld) 70.1 % Normal . [facility] Comment on above: Performed By: #### C BC, CMP, FE and TIBC, LIPID, URMA, LDLD #### [address] Basic Metabolic Panelon Creatinine Clr Calc Pharmacy 153.15 Normal [facility] Comment on above: Result Comment: PERF ORMED BY: [place] [address] PATHOLOGIST LOSS PREVENTION GUARD RIDGE HUERTA M.D. Performed By: #### C BC, CMP, FE and TIBC, LIPID, URMA, LDLD #### [address] GFR/1.73 sq M.predicted MDRD (S/P/Bld) [Vol rate/Area] mL/min/{1.73_m2} Normal [facility] Comment on above: Performed By: #### C BC, CMP, FE and TIBC, LIPID, URMA, LDLD #### [address] Calcium [Mass/volume] in Ser um or PlasmaOrdered By: Ilene Lopez on 10-09-2023 Calcium [Mass/Vol] 7.9 mg/dL Low 8.6-10.3 [facility] Comment on above: Performed By: #### C BC, CMP, FE and TIBC, LIPID, URMA, LDLD #### [address] Capillary blood glucose ashwini urement by glucometer (mass/volume)Ordered By: Salazar Cabrera on 10-09-2023 Glucose [Mass/Vol] 299 mg/dL Normal [facility] Comment on above: Random Glucose Refer ence Range is dependent on time and content of last meal. Glucose of more than 200 mg/dL in a nonstressed, ambulatory subject supports the diagnosis of Diabetes Mellitus. Result Comment: [place] om Glucose Reference Range is dependent on time and content of last meal. Glucose of more than 200 mg/dL in a nonstressed, ambulatory subject supports the diagnosis of Diabetes Mellitus. Performed By: #### G LULS #### Point of Care testing , Carbon dioxide, total [Moles /volume] in Serum or PlasmaOrdered By: Ilene Lopez on 10-09-2023 CO2 [Moles/Vol] 22.6 mmol/L Normal 21.0-31.0 [facility] Comment on above: Performed By: #### C BC, CMP, FE and TIBC, LIPID, URMA, LDLD #### [facility] [address] [place] [id number] [place] Chloride [Moles/volume] in S alissa or PlasmaOrdered By: Ilene Lopez on 10-09-2023 Chloride [Moles/Vol] 105 mmol/L Normal 98-107 [facility] Comment on above: Performed By: #### C BC, CMP, FE and TIBC, LIPID, URMA, LDLD #### [facility] [address] [place] [id number] [place] Clostridioides difficile tox in B tcdB gene [Presence] in Stool by NAYELY with probe deteOrdered By: BONG Pavon on 10-09-2023 C. difficile toxin B tcdB gene NAYELY+probe Ql (Stl) Positive Negative [facility] Comment on above: Results calledat 161 9 on 10/09/23 Testing performed by RT-PCR Clostridium Difficileon Clostridium Difficile Positive Normal Negative [facility] Comment on above: Order Comment: Reaso n for Exam Type 2 diabetes mellitus without complication, without long- Result Comment: Resu lts called at 1619 on 10/09/23 Testing performed by RT-PCR PERFORMED BY: [place] [address] PATHOLOGIST LOSS PREVENTION GUARD RIDGE HUERTA M.D. Performed By: #### C BC, CMP, FE and TIBC, LIPID, URMA, LDLD #### [address] Complete Blood Count Auto Di ffon 10-09-2023 Mean Corpuscular HGB Conc 34.0 g/dL Normal 32.0-35.0 [facility] Comment on above: Performed By: #### C BC, CMP, FE and TIBC, LIPID, URMA, LDLD #### [address] NRBC% 0.1 /100{WBC} Normal 0-0.5 [facility] Comment on above: Performed By: #### C BC, CMP, FE and TIBC, LIPID, URMA, LDLD #### [address] Creatinine [Mass/volume] in Serum or PlasmaOrdered By: Ilene Lopez on 10-09-2023 Creatinine [Mass/Vol] 0.48 mg/dL Low 0.60-1.20 [facility] Comment on above: Performed By: #### C BC, CMP, FE and TIBC, LIPID, URMA, LDLD #### [address] Erythrocyte distribution wid th [Ratio] by Automated countOrdered By: Ilene Lopez on 10-09-2023 Erythrocyte distribution width (RBC) [Ratio] 13.2 % Normal 11.9-15.3 [facility] Comment on above: Performed By: #### C BC, CMP, FE and TIBC, LIPID, URMA, LDLD #### [address] Erythrocytes [#/volume] in B lood by Automated countOrdered By: Ilene Calderon on 10-09-2023 RBC (Bld) [#/Vol] 3.44 10*6/uL Low 3.60-5.00 [facility] Comment on above: Performed By: #### C BC, CMP, FE and TIBC, LIPID, URMA, LDLD #### [facility] [address] [place] [id number] [facility] Glucose Poct Glucometerson 0 10-09-2023 Commemt1 Glu2: Cleaned Meter Normal [facility] Comment on above: Result Comment: PERF ORMED BY: [place] [address] PATHOLOGIST LOSS PREVENTION GUARD RIDGE HUERTA M.D. Performed By: #### G LULS #### Point of Care testing , Commemt1 Glu2: Cleaned Meter Normal [facility] Comment on above: Result Comment: PERF ORMED BY: [place] [address] PATHOLOGIST LOSS PREVENTION GUARD RIDGE HUERTA M.D. Performed By: #### C BC, CMP, FE and TIBC, LIPID, URMA, LDLD #### [facility] [address] [place] [id number] [facility] Glucose [Mass/Vol] 188 mg/dL Normal [facility] Comment on above: Result Comment: [place] Glucose Reference Range is dependent on time and content of last meal. Glucose of more than 200 mg/dL in a nonstressed, ambulatory subject supports the diagnosis of Diabetes Mellitus. Performed By: #### C BC, CMP, FE and TIBC, LIPID, URMA, LDLD #### [facility] [address] [place] [address] [place] Glucose [Mass/volume] in Ser um or PlasmaOrdered By: Ilene Lopez on 10-09-2023 Glucose [Mass/Vol] 143 mg/dL High 70-100 [facility] Comment on above: ADA recommended refe rence rangeRandom Glucose Reference Range is dependent on time and content of last meal. Glucose of more than 200 mg/dL in a nonstressed, ambulatory subject supports the diagnosis of Diabetes Mellitus. Result Comment: [place] om Glucose Reference Range is dependent on time and content of last meal. Glucose of more than 200 mg/dL in a nonstressed, ambulatory subject supports the diagnosis of Diabetes Mellitus. ADA recommended reference range Performed By: #### C BC, CMP, FE and TIBC, LIPID, URMA, LDLD #### [facility] [address] Hematocrit [Volume Fraction] of Blood by Automated countOrdered By: Ilene Lopez on 10-09-2023 Hematocrit (Bld) [Volume fraction] 30.3 % Low 34.0-46.4 [facility] Comment on above: Performed By: #### C BC, CMP, FE and TIBC, LIPID, URMA, LDLD #### [facility] [address] Hemoglobin [Mass/volume] in BloodOrdered By: Ilene Lopez on 10-09-2023 Hemoglobin (Bld) [Mass/Vol] 10.3 g/dL Low 11.8-15.4 [facility] Comment on above: Performed By: #### C BC, CMP, FE and TIBC, LIPID, URMA, LDLD #### [facility] [address] Leukocytes [#/volume] correc cherie for nucleated erythrocytes in Blood by Automated counOrdered By: Ilene Lopez on 10-09-2023 WBC corrected for nucl RBC Auto (Bld) [#/Vol] 13.6 10*3/uL 3.8-11.6 [facility] Leukocytes [#/volume] in Blo od by Automated countOrdered By: Ilene Calderon on 10-09-2023 WBC (Bld) [#/Vol] 13.6 10*3/uL High 3.8-11.6 [facility] Comment on above: Performed By: #### C BC, CMP, FE and TIBC, LIPID, URMA, LDLD #### [facility] [address] Lymphocytes [#/volume] in Bl ood by Automated countOrdered By: Ilene Calderon on 10-09-2023 Lymphocytes (Bld) [#/Vol] 2.2 10*3/uL Normal 1.00-4.8 [facility] Comment on above: Performed By: #### C BC, CMP, FE and TIBC, LIPID, URMA, LDLD #### [address] Lymphocytes/100 leukocytes i n Blood by Automated countOrdered By: Ilene Lopez on 10-09-2023 Lymphocytes/100 WBC (Bld) 16.5 % Normal . [facility] Comment on above: Performed By: #### C BC, CMP, FE and TIBC, LIPID, URMA, LDLD #### [address] MCH [Entitic mass] by Automa cherie countOrdered By: Ilene Lopez on 10-09-2023 MCH (RBC) [Entitic mass] 29.9 pg Normal 24.7-34.3 [facility] Comment on above: Performed By: #### C BC, CMP, FE and TIBC, LIPID, URMA, LDLD #### [address] MCHC Auto (RBC) [Mass/Vol]Or dered By: Ilene Lopez on 10-09-2023 MCHC (RBC) [Mass/Vol] 34.0 g/dL 32.0-35.0 [facility] MCV [Entitic volume] by Auto mated countOrdered By: Ilene Lopez on 10-09-2023 MCV (RBC) [Entitic vol] 88.1 fL Normal 80-100 [facility] Comment on above: Performed By: #### C BC, CMP, FE and TIBC, LIPID, URMA, LDLD #### [facility] [address] [place] [address] Neutrophils [#/volume] in Bl ood by Automated countOrdered By: Ilene Calderon on 10-09-2023 Neutrophils (Bld) [#/Vol] 9.6 10*3/uL High 1.8-7.7 [facility] Comment on above: Performed By: #### C BC, CMP, FE and TIBC, LIPID, URMA, LDLD #### [facility] [address] No Panel InformationOrdered By: Salazar Cabrera on 10-09-2023 Bedside Glucose Comment Glu2: cleaned meter [facility] No Panel InformationOrdered By: Ilene Lopez on 10-09-2023 Estimated GFR (CKD-EPI) > 60.0 mL/Min [facility] Creatinine Clearance (Chem 153.15 [facility] Nucleated erythrocytes [Pres ence] in Blood by Automated countOrdered By: Ilene Lopez on 10-09-2023 Nucleated RBC Auto Ql (Bld) 0.1 /100{WBC} 0-0.5 [facility] Platelet mean volume [Entiti c volume] in Blood by Automated countOrdered By: Ilene Lopez on 10-09-2023 Platelet mean volume (Bld) [Entitic vol] 7.9 fL Normal 6.3-10.7 [facility] Comment on above: Performed By: #### C BC, CMP, FE and TIBC, LIPID, URMA, LDLD #### [facility] [address] Platelets [#/volume] in Bloo d by Automated countOrdered By: Ilene Lopez on 10-09-2023 Platelets (Bld) [#/Vol] 242 10*3/uL Normal 150-450 [facility] Comment on above: Performed By: #### C BC, CMP, FE and TIBC, LIPID, URMA, LDLD #### [facility] [address] Potassium [Moles/volume] in Serum or PlasmaOrdered By: Ilene Lopez on 10-09-2023 Potassium [Moles/Vol] 3.4 mmol/L Low 3.5-5.1 [facility] Comment on above: Performed By: #### C BC, CMP, FE and TIBC, LIPID, URMA, LDLD #### [facility] [address] [place] [address] Serum or plasma anion gap de terminationOrdered By: Ilene Lopez on 10-09-2023 Anion gap [Moles/Vol] 11.8 mmol/L Normal 6.0-15.[address] [facility] Comment on above: Performed By: #### C BC, CMP, FE and TIBC, LIPID, URMA, LDLD #### [address] Sodium [Moles/volume] in Ser um or PlasmaOrdered By: Ilene Lopez on 10-09-2023 Sodium [Moles/Vol] 136 mmol/L Normal 136-145 [facility] Comment on above: Performed By: #### C BC, CMP, FE and TIBC, LIPID, URMA, LDLD #### [address] Stool Cultureon 10-09-2023 Stool culture Comment c. diff Negative for Shiga Toxin 1 Negative for Shiga Toxin 2 A negative Shiga Toxin result may occur if the antigen level in the specimen is below the detection limit of the assay. Stool culture results No Salmonella, Shigella, Campy or E. coli 0157:H7 Isolated PERFORMED BY: [place] [address] PATHOLOGIST LOSS PREVENTION GUARD RIDGE HUERTA M.D. Normal [facility] Comment on above: Performed By: #### C USTOOL #### [address] Stool bacteria identificatio n by cultureOrdered By: BONG Pavon on 10-09-2023 Bacteria identified Cx Nom (Stl) [facility] Urea nitrogen [Mass/volume] in Serum or PlasmaOrdered By: Ilene Lopez on 10-09-2023 Urea nitrogen [Mass/Vol] 6 mg/dL Low 7-25 [facility] Comment on above: Performed By: #### C BC, CMP, FE and TIBC, LIPID, URMA, LDLD #### [facility] [address] Alanine aminotransferase [En zymatic activity/volume] in Serum or PlasmaOrdered By: BONG Pavon on 10-08-2023 ALT [Catalytic activity/Vol] 31 U/L Normal 7-52 [facility] Comment on above: Performed By: #### G LULS #### Point of Care testing , Albumin [Mass/volume] in Ser um or Plasma by Bromocresol green (BCG) dye binding methoOrdered By: BONG Pavon on 10-08-2023 Albumin BCG dye [Mass/Vol] 3.7 g/dL 3.5-5.7 [facility] Alkaline phosphatase [Enzyma tic activity/volume] in Serum or PlasmaOrdered By: BONG Pavon on 10-08-2023 ALP [Catalytic activity/Vol] 61 U/L Normal 34-104 [facility] Comment on above: Performed By: #### G LULS #### Point of Care testing , Aspartate aminotransferase [ Enzymatic activity/volume] in Serum or PlasmaOrdered By: BONG Pavon on 10-08-2023 AST [Catalytic activity/Vol] 40 U/L High 13-39 [facility] Comment on above: Performed By: #### G LULS #### Point of Care testing , Automated erythrocytes count in urine sediment (number/area)Ordered By: BONG Pavon on 10-08-2023 RBC Auto (Urine sed) [#/Area] 5-9 [HPF] 0-4 [facility] Automated leukocytes count i n urine sediment (number/area)Ordered By: BONG Pavon on 10-08-2023 WBC Auto (Urine sed) [#/Area] 3-4 [HPF] 0-4 [facility] Automated urine color determ inationOrdered By: BONG Pavon on 10-08-2023 Color (U) [place] Critically abnormal Yellow [facility] Comment on above: Order Comment: Name Collection Type:: Martinez Catheter Performed By: #### C USTOOL #### [place] [id number] [facility] Automated urine hyaline cast s count (number/volume)Ordered By: BONG Pavon on 10-08-2023 Hyaline casts Auto (U) [#/Vol] None seen [LPF] 0-1 [facility] Bilirubin Test strip Ql (U)O rdered By: BONG Pavon on 10-08-2023 Bilirubin Ql (U) 1+ Negative [facility] Bilirubin.total [Mass/volume ] in Serum or PlasmaOrdered By: BONG Pavon on 10-08-2023 Bilirubin [Mass/Vol] 0.6 mg/dL Normal 0.3-1.0 [facility] Comment on above: Performed By: #### G LULS #### Point of Care testing , CT abdomen pelvis w conon CT abdomen pelvis w con [facility] Main [place] [address] [place] [address] CT Scan Report Signed Patient: Rachel Mcgarry MR#: [id number] 1 : 1980 Acct:[id number] Age/Sex: 43 / F ADM Date: 10/07/23 Loc: Room: [address] [place] [address] Type: ADM IN Attending Dr: Beltran Pavon MD Copies to: BONG Motley Ordering Provider: BONG Motley Date of Service: 10/08/23 CT/CT abdomen pelvis w con: Abdominal pain/distended abdomen CT abdomen and pelvis with contrast CLINICAL DATA: Abdominal pain, distention and vomiting. Recent hysterectomy. COMPARISON: 10/07/2023 from [facility]. No report is available at [...] ABDOMEN AND PELVIS Impression dictated by: Eda Yñaez M.D.10/08/2023 12:09 PM Dictation Location: [place] [address] Transcribed By: [facility] 10/08/23 1209 Dictated By: Eda Yañez MD 10/08/23 1142 Signed By: 10/08/23 1209 Normal [facility] Casts typing in urine sedime nt by light microscopyOrdered By: BONG Pavon on 10-08-2023 Casts LM Nom (Urine sed) None seen [LPF] None Seen [facility] Complete Blood Count Auto Di ffon 10-08-2023 Basophils (Bld) [#/Vol] 0.1 10*3/uL Normal 0.0-0.2 [facility] Comment on above: Result Comment: PERF ORMED BY: [facility] [address] [place] [address] PATHOLOGIST LOSS PREVENTION GUARD RIDGE HUERTA M.D. Performed By: #### G LULS #### Point of Care testing , Basophils/100 WBC (Bld) 0.5 % Normal . [facility] Comment on above: Performed By: #### G LULS #### Point of Care testing , Eosinophils (Bld) [#/Vol] 0.2 10*3/uL Normal 0.0-0.45 [facility] Comment on above: Performed By: #### G LULS #### Point of Care testing , Eosinophils/100 WBC (Bld) 1.3 % Normal . [facility] Comment on above: Performed By: #### G LULS #### Point of Care testing , Erythrocyte distribution width (RBC) [Ratio] 13.2 % Normal 11.9-15.3 [facility] Comment on above: Performed By: #### G LULS #### Point of Care testing , Hematocrit (Bld) [Volume fraction] 35.9 % Normal 34.0-46.4 [facility] Comment on above: Performed By: #### G LULS #### Point of Care testing , Hemoglobin (Bld) [Mass/Vol] 12.1 g/dL Normal 11.8-15.4 [facility] Comment on above: Performed By: #### G LULS #### Point of Care testing , Lymphocytes (Bld) [#/Vol] 3.0 10*3/uL Normal 1.00-4.8 [facility] Comment on above: Performed By: #### G LULS #### Point of Care testing , Lymphocytes/100 WBC (Bld) 16.8 % Normal . [facility] Comment on above: Performed By: #### G LULS #### Point of Care testing , MCH (RBC) [Entitic mass] 29.7 pg Normal 24.7-34.3 [facility] Comment on above: Performed By: #### G LULS #### Point of Care testing , MCV (RBC) [Entitic vol] 88.3 fL Normal 80-100 [facility] Comment on above: Performed By: #### G LULS #### Point of Care testing , Mean Corpuscular HGB Conc 33.6 g/dL Normal 32.0-35.0 [facility] Comment on above: Performed By: #### G LULS #### Point of Care testing , Monocytes (Bld) [#/Vol] 1.5 10*3/uL High 0.0-0.8 [facility] Comment on above: Performed By: #### G LULS #### Point of Care testing , Monocytes/100 WBC (Bld) 8.4 % Normal . [facility] Comment on above: Performed By: #### G LULS #### Point of Care testing , Neutrophils (Bld) [#/Vol] 12.9 10*3/uL High 1.8-7.7 [facility] Comment on above: Performed By: #### G LULS #### Point of Care testing , Neutrophils/100 WBC (Bld) 73.0 % Normal . [facility] Comment on above: Performed By: #### G LULS #### Point of Care testing , NRBC% 0.1 /100{WBC} Normal 0-0.5 [facility] Comment on above: Performed By: #### G LULS #### Point of Care testing , Platelet mean volume (Bld) [Entitic vol] 7.9 fL Normal 6.3-10.7 [facility] Comment on above: Performed By: #### G LULS #### Point of Care testing , Platelets (Bld) [#/Vol] 274 10*3/uL Normal 150-450 [facility] Comment on above: Performed By: #### G LULS #### Point of Care testing , RBC (Bld) [#/Vol] 4.06 10*6/uL Normal 3.60-5.00 [facility] Comment on above: Performed By: #### G LULS #### Point of Care testing , WBC (Bld) [#/Vol] 17.6 10*3/uL High 3.8-11.6 [facility] Comment on above: Performed By: #### G LULS #### Point of Care testing , Comprehensive Metabolic Pane mark 10-08-2023 Albumin [Mass/Vol] 3.7 g/dL Normal 3.5-5.7 [facility] Comment on above: Performed By: #### G LULS #### Point of Care testing , Anion gap [Moles/Vol] 14.8 mmol/L Normal 6.0-15.0 [facility] Comment on above: Performed By: #### G LULS #### Point of Care testing , Calcium [Mass/Vol] 7.8 mg/dL Low 8.6-10.3 [facility] Comment on above: Performed By: #### G LULS #### Point of Care testing , Chloride [Moles/Vol] 104 mmol/L Normal 98-107 [facility] Comment on above: Performed By: #### G LULS #### Point of Care testing , CO2 [Moles/Vol] 20.2 mmol/L Low 21.0-31.0 [facility] Comment on above: Performed By: #### G LULS #### Point of Care testing , Creatinine [Mass/Vol] 0.58 mg/dL Low 0.60-1.20 [facility] Comment on above: Performed By: #### G LULS #### Point of Care testing , Creatinine Clr Calc Pharmacy 126.74 Normal [facility] Comment on above: Result Comment: PERF ORMED BY: [address] [place] [address] PATHOLOGIST LOSS PREVENTION GUARD RIDGE HUERTA M.D. Performed By: #### G LULS #### Point of Care testing , GFR/1.73 sq M.predicted MDRD (S/P/Bld) [Vol rate/Area] mL/min/{1.73_m2} Normal [facility] Comment on above: Performed By: #### G LULS #### Point of Care testing , Glucose [Mass/Vol] 155 mg/dL High 70-100 [facility] Comment on above: Result Comment: [place] Glucose Reference Range is dependent on time and content of last meal. Glucose of more than 200 mg/dL in a nonstressed, ambulatory subject supports the diagnosis of Diabetes Mellitus. ADA recommended reference range Performed By: #### G LULS #### Point of Care testing , Potassium [Moles/Vol] 4.0 mmol/L Normal 3.5-5.1 [facility] Comment on above: Performed By: #### G GOYOLS #### Point of Care testing , Sodium [Moles/Vol] 135 mmol/L Low 136-145 [facility] Comment on above: Performed By: #### G EDUARDO #### Point of Care testing , Urea nitrogen [Mass/Vol] 10 mg/dL Normal 7-25 [facility] Comment on above: Performed By: #### G EDUARDO #### Point of Care testing , Albumin [Mass/Vol] 3.7 g/dL Normal 3.5-5.7 [facility] Comment on above: Performed By: #### C BC, CMP, FE and TIBC, LIPID, URMA, LDLD #### [address] Albumin/Globulin [Mass ratio] 1.5 {ratio} Normal [facility] Comment on above: Performed By: #### C BC, CMP, FE and TIBC, LIPID, URMA, LDLD #### [address] ALP [Catalytic activity/Vol] 62 U/L Normal 34-104 [facility] Comment on above: Performed By: #### C BC, CMP, FE and TIBC, LIPID, URMA, LDLD #### [address] ALT [Catalytic activity/Vol] 34 U/L Normal 7-52 [facility] Comment on above: Performed By: #### C BC, CMP, FE and TIBC, LIPID, URMA, LDLD #### [address] Anion gap [Moles/Vol] 14.3 mmol/L Normal 6.0-15.0 [facility] Comment on above: Performed By: #### C BC, CMP, FE and TIBC, LIPID, URMA, LDLD #### [place] [address] [place] AST [Catalytic activity/Vol] 74 U/L High 13-39 [facility] Comment on above: Performed By: #### C BC, CMP, FE and TIBC, LIPID, URMA, LDLD #### [address] Bilirubin [Mass/Vol] 0.5 mg/dL Normal 0.3-1.0 [facility] Comment on above: Performed By: #### C BC, CMP, FE and TIBC, LIPID, URMA, LDLD #### [address] Calcium [Mass/Vol] 7.9 mg/dL Low 8.6-10.3 [facility] Comment on above: Performed By: #### C BC, CMP, FE and TIBC, LIPID, URMA, LDLD #### [address] Chloride [Moles/Vol] 102 mmol/L Normal 98-107 [facility] Comment on above: Performed By: #### C BC, CMP, FE and TIBC, LIPID, URMA, LDLD #### [address] CO2 [Moles/Vol] 21.0 mmol/L Normal 21.0-31.0 [facility] Comment on above: Performed By: #### C BC, CMP, FE and TIBC, LIPID, URMA, LDLD #### [address] Creatinine [Mass/Vol] 0.56 mg/dL Low 0.60-1.20 [facility] Comment on above: Performed By: #### C BC, CMP, FE and TIBC, LIPID, URMA, LDLD #### [address] Creatinine Clr Calc Pharmacy 131.27 Normal [facility] Comment on above: Result Comment: PERF ORMED BY: [place] [address] PATHOLOGIST LOSS PREVENTION GUARD JIANLAN SUN M.D. Performed By: #### C BC, CMP, FE and TIBC, LIPID, URMA, LDLD #### [address] GFR/1.73 sq M.predicted MDRD (S/P/Bld) [Vol rate/Area] mL/min/{1.73_m2} Normal [facility] Comment on above: Performed By: #### C BC, CMP, FE and TIBC, LIPID, URMA, LDLD #### [facility] [address] Globulin (S) [Mass/Vol] 2.4 g/dL Normal [facility] Comment on above: Performed By: #### C BC, CMP, FE and TIBC, LIPID, URMA, LDLD #### [address] Glucose [Mass/Vol] 208 mg/dL High 70-100 [facility] Comment on above: Result Comment: [facility] [place] Glucose Reference Range is dependent on time and content of last meal. Glucose of more than 200 mg/dL in a nonstressed, ambulatory subject supports the diagnosis of Diabetes Mellitus. ADA recommended reference range Performed By: #### C BC, CMP, FE and TIBC, LIPID, URMA, LDLD #### [address] Potassium [Moles/Vol] 4.3 mmol/L Normal 3.5-5.1 [facility] Comment on above: Performed By: #### C BC, CMP, FE and TIBC, LIPID, URMA, LDLD #### [address] Protein [Mass/Vol] 6.1 g/dL Low 6.4-8.9 [facility] Comment on above: Performed By: #### C BC, CMP, FE and TIBC, LIPID, URMA, LDLD #### [address] Sodium [Moles/Vol] 133 mmol/L Low 136-145 [facility] Comment on above: Performed By: #### C BC, CMP, FE and TIBC, LIPID, URMA, LDLD #### [facility] [address] [place] [address] [place] Urea nitrogen [Mass/Vol] 9 mg/dL Normal 7-25 [facility] Comment on above: Performed By: #### C BC, CMP, FE and TIBC, LIPID, URMA, LDLD #### [facility] [address] [place] [address] [place] Dipstick and Microscopicon 0 10-08-2023 Appearance (U) Turbid Critically abnormal Clear [facility] Comment on above: Order Comment: Name Collection Type:: Martinez Catheter Performed By: #### C USTOOL #### [address] Bacteria,Urine None Seen Normal None Seen [facility] Comment on above: Order Comment: Name Collection Type:: Martinez Catheter Performed By: #### C USTOOL #### [place] [address] [place] Bilirubin,Urine 1+ High Negative [facility] Comment on above: Order Comment: Name Collection Type:: Martinez Catheter Performed By: #### C USTOOL #### [address] Glucose Ql (U) 250 mg/dL High Normal [facility] Comment on above: Order Comment: Name Collection Type:: Martinez Catheter Performed By: #### C USTOOL #### [place] [address] [place] Hyaline Casts,Urine None Seen Normal 0-1 [facility] Comment on above: Order Comment: Name Collection Type:: Martinez Catheter Performed By: #### C USTOOL #### [place] [address] [place] Ketones Ql (U) Trace High Negative [facility] Comment on above: Order Comment: Name Collection Type:: Martinez Catheter Performed By: #### C USTOOL #### [address] Leukocyte esterase Test strip Ql (U) Negative Normal Negative [facility] Comment on above: Order Comment: Name Collection Type:: Martinez Catheter Performed By: #### C USTOOL #### [address] Nitrite,Urine Negative Normal Negative [facility] Comment on above: Order Comment: Name Collection Type:: Martinez Catheter Performed By: #### C USTOOL #### [address] Occult Blood,Urine Negative Normal Negative [facility] Comment on above: Order Comment: Name Collection Type:: Martinez Catheter Result Comment: PERF ORMED BY: [place] [address] PATHOLOGIST LOSS PREVENTION GUARD RIGDE HUERTA M.D. Performed By: #### C USTOOL #### [address] Other Casts,Urine None Seen Normal None Seen [facility] Comment on above: Order Comment: Name Collection Type:: Martinez Catheter Result Comment: PERF ORMED BY: [place] [address] PATHOLOGIST LOSS PREVENTION GUARD RIDGE HUERTA M.D. Performed By: #### C USTOOL #### [address] RBC,Urine 5-9 High 0-4 [facility] Comment on above: Order Comment: Name Collection Type:: Martinez Catheter Performed By: #### C USTOOL #### [address] Specificy [place],Urine > 1.050 High 1.00 1-1.03 0 [facility] Comment on above: Order Comment: Name Collection Type:: Martinez Catheter Performed By: #### C USTOOL #### [address] Squamous Epithelial Cell,Urine 5-9 High 0-2 [facility] Comment on above: Order Comment: Name Collection Type:: Martinez Catheter Performed By: #### C USTOOL #### [address] Urobilinogen,Urine Normal Normal Normal [facility] Comment on above: Order Comment: Name Collection Type:: Martinez Catheter Performed By: #### C USTOOL #### [address] WBC,Urine 3-4 Normal 0-4 [facility] Comment on above: Order Comment: Name Collection Type:: Martinez Catheter Performed By: #### C USTOOL #### [address] Glucose Poct Glucometerson 0 10-08-2023 Glucose [Mass/Vol] 194 mg/dL Normal [facility] Comment on above: Result Comment: [place] om Glucose Reference Range is dependent on time and content of last meal. Glucose of more than 200 mg/dL in a nonstressed, ambulatory subject supports the diagnosis of Diabetes Mellitus. PERFORMED BY: [place] [address] PATHOLOGIST LOSS PREVENTION GUARD RIDGE HUERTA M.D. Performed By: #### C BC, CMP, FE and TIBC, LIPID, URMA, LDLD #### [address] Commemt1 Glu2: Cleaned Meter Normal [facility] Comment on above: Result Comment: PERF ORMED BY: [place] [address] PATHOLOGIST LOSS PREVENTION GUARD RIDGE HUERTA M.D. Performed By: #### C BC, CMP, FE and TIBC, LIPID, URMA, LDLD #### [address] Glucose [Mass/Vol] 265 mg/dL Normal [facility] Comment on above: Result Comment: [place] om Glucose Reference Range is dependent on time and content of last meal. Glucose of more than 200 mg/dL in a nonstressed, ambulatory subject supports the diagnosis of Diabetes Mellitus. Performed By: #### C BC, CMP, FE and TIBC, LIPID, URMA, LDLD #### [address] [address] [place] Commemt1 Glu2: Cleaned Meter Normal [facility] Comment on above: Result Comment: PERF ORMED BY: [place] [address] PATHOLOGIST LOSS PREVENTION GUARD RIDGE HUERTA M.D. Performed By: #### G LULS #### Point of Care testing , Glucose [Mass/Vol] 166 mg/dL Normal [facility] Comment on above: Result Comment: [place] om Glucose Reference Range is dependent on time and content of last meal. Glucose of more than 200 mg/dL in a nonstressed, ambulatory subject supports the diagnosis of Diabetes Mellitus. Performed By: #### G LULS #### Point of Care testing , Glucose [Mass/Vol] 168 mg/dL Normal [facility] Comment on above: Result Comment: [place] om Glucose Reference Range is dependent on time and content of last meal. Glucose of more than 200 mg/dL in a nonstressed, ambulatory subject supports the diagnosis of Diabetes Mellitus. PERFORMED BY: [place] [address] PATHOLOGIST LOSS PREVENTION GUARD RIDGE HUERTA M.D. Performed By: #### C BC, CMP, FE and TIBC, LIPID, URMA, LDLD #### [facility] [address] [place] [address] Ketones Auto test strip (U) [Mass/Vol]Ordered By: BONG Pavon on 10-08-2023 Ketones (U) [Mass/Vol] Trace Negative [facility] Lactate [Moles/volume] in Se rum or PlasmaOrdered By: BONG Pavon on 10-08-2023 Lactate [Moles/Vol] 1.9 mmol/L 0.5-2.2 [facility] Lactic Acidon 10-08-2023 Lactate [Moles/Vol] 2.0 mmol/L Off scale high 0.5-2.2 [facility] Comment on above: Result Comment: Crit ical Result : Called to and read back by: BERT JAEGER/Bon at: 10/08/2023 07:31:51 by:[email or web address] PERFORMED BY: [place] [address] PATHOLOGIST LOSS PREVENTION GUARD RIDGE HUERTA M.D. Performed By: #### C BC, CMP, FE and TIBC, LIPID, URMA, LDLD #### [address] Lactate [Moles/Vol] 2.6 mmol/L Off scale high 0.5-2.2 [facility] Comment on above: Result Comment: Crit ical Result : Called to and read back by: CLARISSA PATEL at: 10/08/2023 00:48:06 by:[email or web address] PERFORMED BY: [place] [address] PATHOLOGIST LOSS PREVENTION GUARD RIDGE HUERTA M.D. Performed By: #### C BC, CMP, FE and TIBC, LIPID, URMA, LDLD #### [address] Lactic Acid Reflexon 024 Lactic Acid Reflex 1.9 mmol/L Normal 0.5-2.2 [facility] Comment on above: Result Comment: PERF ORMED BY: [place] [address] PATHOLOGIST LOSS PREVENTION GUARD RIDGE HUERTA M.D. Performed By: #### C BC, CMP, FE and TIBC, LIPID, URMA, LDLD #### [address] Nitrite Test strip Ql (U)Ord ered By: BONG Pavon on 10-08-2023 Nitrite Ql (U) Negative Negative [facility] Protein [Mass/volume] in Ser um or PlasmaOrdered By: BONG Pavon on 10-08-2023 Protein [Mass/Vol] 6.3 g/dL Low 6.4-8.9 [facility] Comment on above: Performed By: #### G LULS #### Point of Care testing , Serum globulin measurement b y calculation (mass/volume)Ordered By: BONG Pavon on 10-08-2023 Globulin (S) [Mass/Vol] 2.6 g/dL Normal F [facility] Comment on above: Performed By: #### G LULS #### Point of Care testing , Serum or plasma albumin/glob ulin mass ratioOrdered By: BONG Pavon on 10-08-2023 Albumin/Globulin [Mass ratio] 1.4 {ratio} Normal [facility] Comment on above: Performed By: #### G LULS #### Point of Care testing , Specific gravity Auto test s trip (U) [Rel density]Ordered By: BONG Pavon on 10-08-2023 Specific gravity (U) [Rel density] > 1.050 1.001-1.03 0 [facility] Squamous epithelial cells de tection in urine sediment by light microscopyOrdered By: BONG Pavon on 10-08-2023 Epithelial cells.squamous LM Ql (Urine sed) 5-9 [HPF] 0-2 [facility] Urine bacteria detection by automated methodOrdered By: BONG Pavon on 10-08-2023 Bacteria Auto Ql (U) None seen None Seen [facility] Urine clarity by refractomet ry automatedOrdered By: BONG Pavon on 10-08-2023 Clarity Refractometry automated (U) Turbid Clear [facility] Urine glucose measurement by automated test strip (mass/volume)Ordered By: ARIELLE Pavon on 10-08-2023 Glucose Auto test strip (U) [Mass/Vol] 250 mg/dL Normal [facility] Urine hemoglobin detection b y automated test stripOrdered By: BONG Pavon on 10-08-2023 Hemoglobin Auto test strip Ql (U) Negative Negative [facility] Urine leukocyte esterase det ection by automated test stripOrdered By: BONG Pavon on 10-08-2023 Leukocyte esterase Auto test strip Ql (U) Negative Negative [facility] Urine pH measurement by auto mated test stripOrdered By: BONG Pavon on 10-08-2023 pH (U) 5.5 [pH] Normal 5.0-9.0 [facility] Comment on above: Order Comment: Name Collection Type:: Martinez Catheter Performed By: #### C USTOOL #### [facility] [address] Urine protein measurement by automated test strip (mass/volume)Ordered By: ARIELLE Pavon on 10-08-2023 Protein (U) [Mass/Vol] 30 mg/dL High Negative [facility] Comment on above: Order Comment: Name Collection Type:: Martinez Catheter Performed By: #### C USTOOL #### [facility] [address] Urobilinogen Auto test strip (U) [Mass/Vol]Ordered By: BONG Pavon on 10-08-2023 Urobilinogen (U) [Mass/Vol] Normal mg/dL Normal [facility] Capillary blood glucose ashwini urement by glucometer (mass/volume)Ordered By: Carri Manuel on 09-28-2023 Glucose [Mass/Vol] 196 mg/dL Normal [facility] Comment on above: Random Glucose Refer ence Range is dependent on time and content of last meal. Glucose of more than 200 mg/dL in a nonstressed, ambulatory subject supports the diagnosis of Diabetes Mellitus. Result Comment: [place] Glucose Reference Range is dependent on time and content of last meal. Glucose of more than 200 mg/dL in a nonstressed, ambulatory subject supports the diagnosis of Diabetes Mellitus. PERFORMED BY: [place] [address] PATHOLOGIST LOSS PREVENTION GUARD RIDGE HUERTA M.D. Performed By: #### C BC, CMP, FE and TIBC, LIPID, URMA, LDLD #### [facility] [address] [place] [address] Glucose Poct Glucometerson 1 11-29-2022 Commemt1 Glu2: Cleaned Meter Normal [facility] Comment on above: Result Comment: PERF ORMED BY: [place] [address] PATHOLOGIST LOSS PREVENTION GUARD RIDGE HUERTA M.D. Performed By: #### G LULS #### Point of Care testing , Glucose [Mass/Vol] 153 mg/dL Normal [facility] Comment on above: Result Comment: [facility] [place] [place] Glucose Reference Range is dependent on time and content of last meal. Glucose of more than 200 mg/dL in a nonstressed, ambulatory subject supports the diagnosis of Diabetes Mellitus. Performed By: #### G LULS #### Point of Care testing , HCG ( test) IAanil jackson Ql (U)Ordered By: Mic Álvarez on 09-28-2023 HCG ( test) Ql (U) Negative [facility] HCG,Urineon 09-28-2023 Beta HCG ( test) Ql (U) Negative Normal [facility] Comment on above: Result Comment: PERF ORMED BY: [place] [address] PATHOLOGIST LOSS PREVENTION GUARD RIDGE HUERTA M.D. Performed By: #### U HCG #### [address] 09-28-2023 L ------- Specimen: [id number] Received: 09/28/23 Status: BLUE Neal Num: [id number] Spec Type: Surgical Subm Dr: Carri Manuel, Tissues: A Uterus w/ or w/o tubes ovaries except neoplastic or prolap (CERVIX, MIGUELINA TU Procedures: , Gross/Micro L5 Age/ Patient Sex Location Account Attending Physician Rachel Mcgarry 43/F [place] [id number] Carri Manuel, DO SPEC NUM: [id number] RECD: 09/28/23 STATUS: BLUE NEAL NUM: [id number] JOSEPH: 09/28/[address] [facility] DR: Carri Manuel DO ENTERED: 09/28/23 [facility] DR: HALLEY TYPE: Surgical DEPT: S [...] an unremarkable, pinpoint lumen on cut section. Sponge Maker sections are submitted in 6 cassettes as follows: A1 - Anterior cervix A2 - Posterior cervix A3 - Anterior endomyometrium Specimen: [id number] Received: 09/28/23 Status: BLUE Britoeudarda Num: [id number] Spec Type: Surgical Subm Dr: Carri Manuel, Tissues: A Uterus w/ or w/o tubes ovaries except neoplastic or prolap (CERVIX, MIGUELINA TU Procedures: , Gross/Micro L5 Patient: Rachel Mcgarry [id number] (Continued) Specimen: [id number] Received: 09/28/23 (Continued) Gross Description (Continued) Signed (signature on file) Nikkie Munguia MD 09/29/23 2213 Specimen: [id number] Received: 09/28/23 Status: BLUE Neal Num: [id number] Spec Type: Surgical Subm Dr: Carri Manuel DO Tissues: A Uterus w/ or w/o tubes ovaries except neoplastic or prolap (CERVIX, MIGUELINA TU Procedures: , Gross/Micro L5 Patient: Rachel Mcgarry [id number] (Continued) Specimen: [id number] Received: 09/28/23 (Continued) Gross Description (Continued) A4 - Posterior endomyometrium A5 - Right fallopian tube A6 - Left fallopian tube Microscopic Description Six H E slides reviewed. The microscopic examination confirms the diagnosis. CPT Codes [id number] Specimen: [id number] Received: 09/28/23 Status: BLUE [place] Num: [id number] Spec Type: Surgical Subm Dr: Carri Manuel DO Tissues: A Uterus w/ or w/o tubes ovaries except neoplastic or prolap (CERVIX, MIGUELINA TU Procedures: , Gross/Micro L5 Patient: Rachel Mcgarry [id number] (Continued) Signed (signature on file) Nikkie Munguia MD 09/29/232212 Normal [facility] No Panel InformationOrdered By: Carri Manuel on 09-28-2023 Bedside Glucose Comment Glu2: cleaned meter [facility] Automated basophil %Ordered By: Carri Manuel on 09-16-2023 Basophils/100 WBC (Bld) 0.6 % Normal . [facility] Comment on above: Performed By: #### G LULS #### Point of Care testing , Automated basophil countOrde red By: Carri Kaleb on 09-16-2023 Basophils (Bld) [#/Vol] 0.1 10*3/uL Normal 0.0-0.2 [facility] Comment on above: Result Comment: PERF ORMED BY: [facility] [place] [address] PATHOLOGIST LOSS PREVENTION GUARD RIDGE HUERTA M.D. Performed By: #### G LULS #### Point of Care testing , Automated blood monocyte cou ntOrdered By: Carri Manuel on 09-16-2023 Monocytes (Bld) [#/Vol] 0.9 10*3/uL High 0.0-0.8 [facility] Comment on above: Performed By: #### G LULS #### Point of Care testing , Automated eosinophil %Ordere d By: Carri Manuel on 09-16-2023 Eosinophils/100 WBC (Bld) 0.5 % Normal . [facility] Comment on above: Performed By: #### G LULS #### Point of Care testing , Automated eosinophil countOr dered By: Carri Manuel on 09-16-2023 Eosinophils (Bld) [#/Vol] 0.1 10*3/uL Normal 0.0-0.45 [facility] Comment on above: Performed By: #### G LULS #### Point of Care testing , Automated monocyte %Ordered By: Carri Manuel on 09-16-2023 Monocytes/100 WBC (Bld) 7.5 % Normal . [facility] Comment on above: Performed By: #### G LULS #### Point of Care testing , Automated neutrophil %Ordere d By: Carri Manuel on 09-16-2023 Neutrophils/100 WBC (Bld) 66.5 % Normal . [facility] Comment on above: Performed By: #### G LULS #### Point of Care testing , Basic Metabolic Panelon 09-03 GFR/1.73 sq M.predicted MDRD (S/P/Bld) [Vol rate/Area] mL/min/{1.73_m2} Normal [facility] Comment on above: Performed By: #### G LULS #### Point of Care testing , Calcium [Mass/volume] in Ser um or PlasmaOrdered By: Carri Manuel on 09-16-2023 Calcium [Mass/Vol] 9.3 mg/dL Normal 8.6-10.3 [facility] Comment on above: Result Comment: PERF ORMED BY: [facility] [address] [place] [address] PATHOLOGIST LOSS PREVENTION GUARD RIDGE HUERTA M.D. Performed By: #### G LULS #### Point of Care testing , Carbon dioxide, total [Moles /volume] in Serum or PlasmaOrdered By: Carri Manuel on 09-16-2023 CO2 [Moles/Vol] 25.5 mmol/L Normal 21.0-31.0 [facility] Comment on above: Performed By: #### G LULS #### Point of Care testing , Chloride [Moles/volume] in S alissa or PlasmaOrdered By: Carri Manuel on 09-16-2023 Chloride [Moles/Vol] 99 mmol/L Normal 98-107 [facility] Comment on above: Performed By: #### G LULS #### Point of Care testing , Complete Blood Count Auto Di ffon 09-16-2023 Mean Corpuscular HGB Conc 33.5 g/dL Normal 32.0-35.0 [facility] Comment on above: Performed By: #### G LULS #### Point of Care testing , NRBC% 0.1 /100{WBC} Normal 0-0.5 [facility] Comment on above: Performed By: #### G LULS #### Point of Care testing , Creatinine [Mass/volume] in Serum or PlasmaOrdered By: Carri Manuel on 09-16-2023 Creatinine [Mass/Vol] 0.68 mg/dL Normal 0.60-1.20 [facility] Comment on above: Performed By: #### G LULS #### Point of Care testing , Erythrocyte distribution wid th [Ratio] by Automated countOrdered By: Carri Manuel on 09-16-2023 Erythrocyte distribution width (RBC) [Ratio] 13.3 % Normal 11.9-15.3 [facility] Comment on above: Performed By: #### G LULS #### Point of Care testing , Erythrocytes [#/volume] in B lood by Automated countOrdered By: Carri Manuel on 09-16-2023 RBC (Bld) [#/Vol] 4.31 10*6/uL Normal 3.60-5.00 [facility] Comment on above: Performed By: #### G LULS #### Point of Care testing , Glucose [Mass/volume] in Ser um or PlasmaOrdered By: Carri Manuel on 09-16-2023 Glucose [Mass/Vol] 355 mg/dL High 70-100 [facility] Comment on above: ADA recommended refe rence rangeRandom Glucose Reference Range is dependent on time and content of last meal. Glucose of more than 200 mg/dL in a nonstressed, ambulatory subject supports the diagnosis of Diabetes Mellitus. Result Comment: [place] Glucose Reference Range is dependent on time and content of last meal. Glucose of more than 200 mg/dL in a nonstressed, ambulatory subject supports the diagnosis of Diabetes Mellitus. ADA recommended reference range Performed By: #### G LULS #### Point of Care testing , Hematocrit [Volume Fraction] of Blood by Automated countOrdered By: Carri Manuel on 09-16-2023 Hematocrit (Bld) [Volume fraction] 38.3 % Normal 34.0-46.4 [facility] Comment on above: Performed By: #### G LULS #### Point of Care testing , Hemoglobin [Mass/volume] in BloodOrdered By: Carri Manuel on 09-16-2023 Hemoglobin (Bld) [Mass/Vol] 12.8 g/dL Normal 11.8-15.4 [facility] Comment on above: Performed By: #### G LULS #### Point of Care testing , Leukocytes [#/volume] correc cherie for nucleated erythrocytes in Blood by Automated counOrdered By: Carri Manuel on 09-16-2023 WBC corrected for nucl RBC Auto (Bld) [#/Vol] 12.5 10*3/uL 3.8-11.6 [facility] Leukocytes [#/volume] in Blo od by Automated countOrdered By: Carri Manuel on 09-16-2023 WBC (Bld) [#/Vol] 12.5 10*3/uL High 3.8-11.6 [facility] Comment on above: Performed By: #### G LULS #### Point of Care testing , Lymphocytes [#/volume] in Bl ood by Automated countOrdered By: Carri Manuel on 09-16-2023 Lymphocytes (Bld) [#/Vol] 3.1 10*3/uL Normal 1.00-4.8 [facility] Comment on above: Performed By: #### G LULS #### Point of Care testing , Lymphocytes/100 leukocytes i n Blood by Automated countOrdered By: Carri Manuel on 09-16-2023 Lymphocytes/100 WBC (Bld) 24.9 % Normal . [facility] Comment on above: Performed By: #### G LULS #### Point of Care testing , MCH [Entitic mass] by Automa cherie countOrdered By: Carri Manuel on 09-16-2023 MCH (RBC) [Entitic mass] 29.7 pg Normal 24.7-34.3 [facility] Comment on above: Performed By: #### G LULS #### Point of Care testing , MCHC Auto (RBC) [Mass/Vol]Or dered By: Carri Manuel on 09-16-2023 MCHC (RBC) [Mass/Vol] 33.5 g/dL 32.0-35.0 [facility] MCV [Entitic volume] by Auto mated countOrdered By: Carri Manuel on 09-16-2023 MCV (RBC) [Entitic vol] 88.8 fL Normal 80-100 [facility] Comment on above: Performed By: #### G LULS #### Point of Care testing , Neutrophils [#/volume] in Bl ood by Automated countOrdered By: Carri Manuel on 09-16-2023 Neutrophils (Bld) [#/Vol] 8.3 10*3/uL High 1.8-7.7 [facility] Comment on above: Performed By: #### G LULS #### Point of Care testing , No Panel InformationOrdered By: Carri Manuel on 09-16-2023 Estimated GFR (CKD-EPI) > 60.0 mL/Min [facility] Creatinine Clearance (Chem N/A [facility] Nucleated erythrocytes [Pres ence] in Blood by Automated countOrdered By: Carri Manuel on 09-16-2023 Nucleated RBC Auto Ql (Bld) 0.1 /100{WBC} 0-0.5 [facility] PST Type and Screenon 2022 ABO and Rh group Nom (Bld) Blood group A Rh(D) positive Normal [facility] Comment on above: Order Comment: Date of Surgery: [id number] Result Comment: PERF ORMED BY: [facility] [address] [place] [address] PATHOLOGIST LOSS PREVENTION GUARD RIDGE HUERTA M.D. Platelet mean volume [Entiti c volume] in Blood by Automated countOrdered By: Carri Manuel on 09-16-2023 Platelet mean volume (Bld) [Entitic vol] 8.2 fL Normal 6.3-10.7 [facility] Comment on above: Performed By: #### G LULS #### Point of Care testing , Platelets [#/volume] in Bloo d by Automated countOrdered By: Carri Manuel on 09-16-2023 Platelets (Bld) [#/Vol] 305 10*3/uL Normal 150-450 [facility] Comment on above: Performed By: #### G LULS #### Point of Care testing , Potassium [Moles/volume] in Serum or PlasmaOrdered By: Carri Manuel on 09-16-2023 Potassium [Moles/Vol] 5.0 mmol/L Normal 3.5-5.1 [facility] Comment on above: Performed By: #### G LULS #### Point of Care testing , Serum or plasma anion gap de terminationOrdered By: Carri Manuel on 09-16-2023 Anion gap [Moles/Vol] 14.5 mmol/L Normal 6.0-15.[address] [facility] Comment on above: Performed By: #### G EDUARDO #### Point of Care testing , Sodium [Moles/volume] in Ser um or PlasmaOrdered By: Carri Kaleb on 09-16-2023 Sodium [Moles/Vol] 134 mmol/L Low 136-145 [facility] Comment on above: Performed By: #### G EDUARDO #### Point of Care testing , Urea nitrogen [Mass/volume] in Serum or PlasmaOrdered By: Carri Manuel on 09-16-2023 Urea nitrogen [Mass/Vol] 13 mg/dL Normal 7-25 [facility] Comment on above: Performed By: #### G EDUARDO #### Point of Care testing , ABO/Rh Retypeon 07-13-2023 ABO/RH Recheck Result Positive Normal [facility] Comment on above: Result Comment: PERF ORMED BY: [facility] [address] [place] [address] PATHOLOGIST LOSS PREVENTION GUARD RIDGE HUERTA M.D. Capillary blood glucose ashwini urement by glucometer (mass/volume)Ordered By: Carri Manuel on 07-13-2023 Glucose [Mass/Vol] 119 mg/dL Normal [facility] Comment on above: Random Glucose Refer ence Range is dependent on time and content of last meal. Glucose of more than 200 mg/dL in a nonstressed, ambulatory subject supports the diagnosis of Diabetes Mellitus. Result Comment: [facility] [place] Glucose Reference Range is dependent on time and content of last meal. Glucose of more than 200 mg/dL in a nonstressed, ambulatory subject supports the diagnosis of Diabetes Mellitus. PERFORMED BY: [facility] [address] [place] [address] PATHOLOGIST LOSS PREVENTION GUARD RIDGE HUERTA M.D. Performed By: #### C BC, CMP, FE and TIBC, LIPID, URMA, LDLD #### [facility] [address] [place] [address] [facility] Glucose Poct Glucometerson 1 Commemt1 Glu2: Cleaned Meter Normal [facility] Comment on above: Result Comment: PERF ORMED BY: [place] [id number] PATHOLOGIST LOSS PREVENTION GUARD RIDGE HUERTA M.D. Performed By: #### C USTOOL #### [address] Glucose [Mass/Vol] 133 mg/dL Normal [facility] Comment on above: Result Comment: [facility] [place] [facility] [place] Glucose Reference Range is dependent on time and content of last meal. Glucose of more than 200 mg/dL in a nonstressed, ambulatory subject supports the diagnosis of Diabetes Mellitus. Performed By: #### C USTOOL #### [address] HCG ( test) IA.mateus d Ql (U)Ordered By: Julio Monroe on 07-13-2023 HCG ( test) Ql (U) Negative [facility] HCG,Urineon 07-13-2023 Beta HCG ( test) Ql (U) Negative Normal [facility] Comment on above: Result Comment: PERF ORMED BY: [place] [address] PATHOLOGIST LOSS PREVENTION GUARD RIDGE HUERTA M.D. Performed By: #### G LULS #### Point of Care testing , Mark 07-13-2023 L ------- Specimen: [id number] Received: 07/13/23 Status: BLUE Neal Num: [id number] Spec Type: Surgical Subm Dr: Carri Manuel, DO Tissues: A Endometrium - Curettings (EMC) Procedures: HE/2, Gross/Micro L4 Age/ Patient Sex Location Account Attending Physician Rachel Mcgarry 43/F [place] [id number] Carri Manuel DO SPEC NUM: [id number] RECD: 07/13/23 STATUS: BLUE NEAL NUM: [id number] JOSEPH: 07/13/23- SUBM DR: Carri Manuel DO ENTERED: 07/13/23-0 [facility] DR: HALLEY TYPE: Surgical DEPT: S [...] submitted in one cassette labeled A1. Specimen: [id number] Received: 07/13/23 Status: BOAmeya Neal Num: [id number] Spec Type: Surgical Subm Dr: Carri Manuel DO Tissues: A Endometrium - Curettings (EMC) Procedures: HE/Marely, Gross/Micro L4 Patient: Rachel Mcgarry [id number] (Continued) Specimen: [id number] Received: 07/13/23 (Continued) Signed (signature on file) Philomena Grimm MD 07/14/23 1608 Specimen: [id number] Received: 07/13/23 Status: BLUE Neal Num: [id number] Spec Type: Surgical Subm Dr: Carri Manuel DO Tissues: A Endometrium - Curettings (EMC) Procedures: HE/2, Gross/Micro L4 Patient: Rachel Mcgarry [id number] (Continued) Specimen: [id number] Received: 07/13/23 (Continued) Microscopic Description Two H E slides reviewed. The microscopic examination confirms the diagnosis. CPT Codes 53819 Specimen: [id number] Received: 07/13/23 Status: BLUE Neal Num: [id number] Spec Type: Surgical Subm Dr: Carri Manuel DO Tissues: A Endometrium - Curettings (EMC) Procedures: HE/2, Gross/Micro L4 Patient: Rachel Mcgarry [id number] (Continued) Signed (signature on file) Philomena Grimm MD 07/14/23 1608 Normal [facility] No Panel InformationOrdered By: Carri Manuel on 07-13-2023 Bedside Glucose Comment Glu2: cleaned meter [facility] Automated basophil %Ordered By: Carri Manuel on 06-30-2023 Basophils/100 WBC (Bld) 0.7 % Normal . [facility] Comment on above: Performed By: #### C USTOOL #### [address] Automated basophil countOrde red By: Carri Manuel on 06-30-2023 Basophils (Bld) [#/Vol] 0.1 10*3/uL Normal 0.0-0.2 [facility] Comment on above: Result Comment: PERF ORMED BY: [place] [address] PATHOLOGIST LOSS PREVENTION GUARD RIDGE HUERTA M.D. Performed By: #### C USTOOL #### [address] Automated blood monocyte cou ntOrdered By: Carri Manuel on 06-30-2023 Monocytes (Bld) [#/Vol] 1.2 10*3/uL High 0.0-0.8 [facility] Comment on above: Performed By: #### C USTOOL #### [address] Automated eosinophil %Ordere d By: Carri Manuel on 06-30-2023 Eosinophils/100 WBC (Bld) 0.4 % Normal . [facility] Comment on above: Performed By: #### C USTOOL #### [address] Automated eosinophil countOr dered By: Carri Manuel on 06-30-2023 Eosinophils (Bld) [#/Vol] 0.1 10*3/uL Normal 0.0-0.45 [facility] Comment on above: Performed By: #### C USTOOL #### [address] Automated monocyte %Ordered By: Carri Manuel on 06-30-2023 Monocytes/100 WBC (Bld) 7.5 % Normal . [facility] Comment on above: Performed By: #### C USTOOL #### [address] Automated neutrophil %Ordere d By: Carri Manuel on 06-30-2023 Neutrophils/100 WBC (Bld) 63.6 % Normal . [facility] Comment on above: Performed By: #### C USTOOL #### [address] Basic Metabolic Panelon 06-05 GFR/1.73 sq M.predicted MDRD (S/P/Bld) [Vol rate/Area] mL/min/{1.73_m2} Normal [facility] Comment on above: Performed By: #### C BC, CMP, FE and TIBC, LIPID, URMA, LDLD #### [facility] [address] Calcium [Mass/volume] in Ser um or PlasmaOrdered By: Carri Manuel on 06-30-2023 Calcium [Mass/Vol] 9.2 mg/dL Normal 8.6-10.3 [facility] Comment on above: Result Comment: PERF ORMED BY: [place] [address] PATHOLOGIST LOSS PREVENTION GUARD RIDGE HUERTA M.D. Performed By: #### C BC, CMP, FE and TIBC, LIPID, URMA, LDLD #### [address] Carbon dioxide, total [Moles /volume] in Serum or PlasmaOrdered By: Carri Manuel on 06-30-2023 CO2 [Moles/Vol] 26.7 mmol/L Normal 21.0-31.0 [facility] Comment on above: Performed By: #### C BC, CMP, FE and TIBC, LIPID, URMA, LDLD #### [address] Chloride [Moles/volume] in S alissa or PlasmaOrdered By: Carri Manuel on 06-30-2023 Chloride [Moles/Vol] 100 mmol/L Normal 98-107 [facility] Comment on above: Performed By: #### C BC, CMP, FE and TIBC, LIPID, URMA, LDLD #### [address] Complete Blood Count Auto Di ffon 06-30-2023 Mean Corpuscular HGB Conc 33.5 g/dL Normal 32.0-35.0 [facility] Comment on above: Performed By: #### C USTOOL #### [address] NRBC% 0.0 /100{WBC} Normal 0-0.5 [facility] Comment on above: Performed By: #### C USTOOL #### [facility] [address] Creatinine [Mass/volume] in Serum or PlasmaOrdered By: Carri Manuel on 06-30-2023 Creatinine [Mass/Vol] 0.54 mg/dL Low 0.60-1.20 [facility] Comment on above: Performed By: #### C BC, CMP, FE and TIBC, LIPID, URMA, LDLD #### [facility] [address] ECG 12 lead ECGon 06-30-2023 ECG 12 lead ECG [facility] [place] [address] [place] [address] Electrocardiograph Report Signed Patient: Rachel Mcgarry MR#: [id number] 1 : 1980 Acct:[id number] Age/Sex: 43 / F ADM Date: 06/30/23 Loc: Room: Type: [facility] Attending Dr: Carri Manuel DO Ordering Provider: [...] Signed By Vamsi Ospina MD 0834 Normal [facility] Erythrocyte distribution wid th [Ratio] by Automated countOrdered By: Carri Manuel on 06-30-2023 Erythrocyte distribution width (RBC) [Ratio] 13.3 % Normal 11.9-15.3 [facility] Comment on above: Performed By: #### C USTOOL #### [facility] [address] [place] [address] [place] Erythrocytes [#/volume] in B lood by Automated countOrdered By: Carri Manuel on 06-30-2023 RBC (Bld) [#/Vol] 4.34 10*6/uL Normal 3.60-5.00 [facility] Comment on above: Performed By: #### C USTOOL #### [facility] [address] [place] [address] [place] Glucose [Mass/volume] in Ser um or PlasmaOrdered By: Carri Manuel on 06-30-2023 Glucose [Mass/Vol] 134 mg/dL High 70-100 [facility] Comment on above: ADA recommended refe rence rangeRandom Glucose Reference Range is dependent on time and content of last meal. Glucose of more than 200 mg/dL in a nonstressed, ambulatory subject supports the diagnosis of Diabetes Mellitus. Result Comment: [place] [facility] Glucose Reference Range is dependent on time and content of last meal. Glucose of more than 200 mg/dL in a nonstressed, ambulatory subject supports the diagnosis of Diabetes Mellitus. ADA recommended reference range Performed By: #### C BC, CMP, FE and TIBC, LIPID, URMA, LDLD #### [place] [address] [place] Hematocrit [Volume Fraction] of Blood by Automated countOrdered By: Carri Manuel on 06-30-2023 Hematocrit (Bld) [Volume fraction] 38.9 % Normal 34.0-46.4 [facility] Comment on above: Performed By: #### C USTOOL #### [facility] [address] [place] [address] [place] Hemoglobin [Mass/volume] in BloodOrdered By: Carri Manuel on 06-30-2023 Hemoglobin (Bld) [Mass/Vol] 13.0 g/dL Normal 11.8-15.4 [facility] Comment on above: Performed By: #### C USTOOL #### [place] [address] [place] Leukocytes [#/volume] correc cherie for nucleated erythrocytes in Blood by Automated counOrdered By: Carri Manuel on 06-30-2023 WBC corrected for nucl RBC Auto (Bld) [#/Vol] 15.4 10*3/uL 3.8-11.6 [facility] Leukocytes [#/volume] in Blo od by Automated countOrdered By: Carri Manuel on 06-30-2023 WBC (Bld) [#/Vol] 15.4 10*3/uL High 3.8-11.6 [facility] Comment on above: Performed By: #### C USTOOL #### [address] Lymphocytes [#/volume] in Bl ood by Automated countOrdered By: Carri Manuel on 06-30-2023 Lymphocytes (Bld) [#/Vol] 4.3 10*3/uL Normal 1.00-4.8 [facility] Comment on above: Performed By: #### C USTOOL #### [address] Lymphocytes/100 leukocytes i n Blood by Automated countOrdered By: Carri Manuel on 06-30-2023 Lymphocytes/100 WBC (Bld) 27.8 % Normal . [facility] Comment on above: Performed By: #### C USTOOL #### [address] MCH [Entitic mass] by Automa cherie countOrdered By: Carri Manuel on 06-30-2023 MCH (RBC) [Entitic mass] 30.0 pg Normal 24.7-34.3 [facility] Comment on above: Performed By: #### C USTOOL #### [address] MCHC Auto (RBC) [Mass/Vol]Or dered By: Carri Manuel on 06-30-2023 MCHC (RBC) [Mass/Vol] 33.5 g/dL 32.0-35.0 [facility] MCV [Entitic volume] by Auto mated countOrdered By: Carri Manuel on 06-30-2023 MCV (RBC) [Entitic vol] 89.6 fL Normal 80-100 [facility] Comment on above: Performed By: #### C USTOOL #### [facility] [address] Neutrophils [#/volume] in Bl ood by Automated countOrdered By: Carri Manuel on 06-30-2023 Neutrophils (Bld) [#/Vol] 9.8 10*3/uL High 1.8-7.7 [facility] Comment on above: Performed By: #### C USTOOL #### [facility] [address] No Panel InformationOrdered By: Carri Manuel on 06-30-2023 Estimated GFR (CKD-EPI) > 60.0 mL/Min [facility] Creatinine Clearance (Chem N/A [facility] Nucleated erythrocytes [Pres ence] in Blood by Automated countOrdered By: Carri Manuel on 06-30-2023 Nucleated RBC Auto Ql (Bld) 0.0 /100{WBC} 0-0.5 [facility] PST Type and Screenon 2022 ABO and Rh group Nom (Bld) Blood group A Rh(D) positive Normal [facility] Comment on above: Order Comment: Date of Surgery: [id number] Order Comment: Reaso n for Exam Type 2 diabetes mellitus without complication, without long- Result Comment: PERF ORMED BY: [address] [place] [address] PATHOLOGIST LOSS PREVENTION GUARD RIDGE HUERTA M.D. Platelet mean volume [Entiti c volume] in Blood by Automated countOrdered By: Carri Manuel on 06-30-2023 Platelet mean volume (Bld) [Entitic vol] 7.9 fL Normal 6.3-10.7 [facility] Comment on above: Performed By: #### C USTOOL #### [facility] [address] [place] [address] Platelets [#/volume] in Bloo d by Automated countOrdered By: Carri Manuel on 06-30-2023 Platelets (Bld) [#/Vol] 275 10*3/uL Normal 150-450 [facility] Comment on above: Performed By: #### C USTOOL #### [facility] [address] [place] [address] [place] Potassium [Moles/volume] in Serum or PlasmaOrdered By: Carri Manuel on 06-30-2023 Potassium [Moles/Vol] 4.3 mmol/L Normal 3.5-5.1 [facility] Comment on above: Performed By: #### C BC, CMP, FE and TIBC, LIPID, URMA, LDLD #### [facility] [address] Serum or plasma anion gap de terminationOrdered By: Carri Manuel on 06-30-2023 Anion gap [Moles/Vol] 14.6 mmol/L Normal 6.0-15.[address] [facility] Comment on above: Performed By: #### C BC, CMP, FE and TIBC, LIPID, URMA, LDLD #### [facility] [address] Sodium [Moles/volume] in Ser um or PlasmaOrdered By: Carri Manuel on 06-30-2023 Sodium [Moles/Vol] 137 mmol/L Normal 136-145 [facility] Comment on above: Performed By: #### C BC, CMP, FE and TIBC, LIPID, URMA, LDLD #### [place] [address] [place] Urea nitrogen [Mass/volume] in Serum or PlasmaOrdered By: Carri Manuel on 06-30-2023 Urea nitrogen [Mass/Vol] 11 mg/dL Normal 7-25 [facility] Comment on above: Performed By: #### C BC, CMP, FE and TIBC, LIPID, URMA, LDLD #### [facility] [address] HCG ( test) IAPanchitorapi d Ql (U)Ordered By: Kyler Miramontes on 05-05-2023 HCG ( test) Ql (U) Negative [facility] HCG,Urineon 05-05-2023 Beta HCG ( test) Ql (U) Negative Normal [facility] Comment on above: Result Comment: PERF ORMED BY: [place] [address] PATHOLOGIST LOSS PREVENTION GUARD RIDGE HUERTA M.D. Performed By: #### C BC, CMP, FE and TIBC, LIPID, URMA, LDLD #### [place] [address] [place] Alanine aminotransferase [En zymatic activity/volume] in Serum or PlasmaOrdered By: Ajit Pettit on 05-04-2023 ALT [Catalytic activity/Vol] 17 U/L Normal 7-52 [facility] Comment on above: Performed By: #### C BC, CMP, FE and TIBC, LIPID, URMA, LDLD #### [place] [address] [place] Albumin [Mass/volume] in Ser um or Plasma by Bromocresol green (BCG) dye binding methoOrdered By: Ajit Pettit on 05-04-2023 Albumin BCG dye [Mass/Vol] 4.4 g/dL 3.5-5.7 [facility] Alkaline phosphatase [Enzyma tic activity/volume] in Serum or PlasmaOrdered By: Ajit Pettit on 05-04-2023 ALP [Catalytic activity/Vol] 55 U/L Normal 34-104 [facility] Comment on above: Performed By: #### C BC, CMP, FE and TIBC, LIPID, URMA, LDLD #### [place] [address] [place] Aspartate aminotransferase [ Enzymatic activity/volume] in Serum or PlasmaOrdered By: Ajit Pettit on 05-04-2023 AST [Catalytic activity/Vol] 18 U/L Normal 13-39 [facility] Comment on above: Performed By: #### C BC, CMP, FE and TIBC, LIPID, URMA, LDLD #### [place] [address] [place] Automated basophil %Ordered By: Ajit Pettit on 05-04-2023 Basophils/100 WBC (Bld) 0.9 % Normal . [facility] Comment on above: Performed By: #### C BC, CMP, FE and TIBC, LIPID, URMA, LDLD #### [address] Automated basophil countOrde red By: Ajit Pettit on 05-04-2023 Basophils (Bld) [#/Vol] 0.1 10*3/uL Normal 0.0-0.2 [facility] Comment on above: Result Comment: PERF ORMED BY: [place] [address] PATHOLOGIST LOSS PREVENTION GUARD RIDGE HUERTA M.D. Performed By: #### C BC, CMP, FE and TIBC, LIPID, URMA, LDLD #### [address] Automated blood monocyte cou ntOrdered By: Ajit Pettit on 05-04-2023 Monocytes (Bld) [#/Vol] 0.9 10*3/uL High 0.0-0.8 [facility] Comment on above: Performed By: #### C BC, CMP, FE and TIBC, LIPID, URMA, LDLD #### [address] Automated eosinophil %Ordere d By: Ajit Pettit on 05-04-2023 Eosinophils/100 WBC (Bld) 0.5 % Normal . [facility] Comment on above: Performed By: #### C BC, CMP, FE and TIBC, LIPID, URMA, LDLD #### [address] Automated eosinophil countOr dered By: Ajit Pettit on 05-04-2023 Eosinophils (Bld) [#/Vol] 0.1 10*3/uL Normal 0.0-0.45 [facility] Comment on above: Performed By: #### C BC, CMP, FE and TIBC, LIPID, URMA, LDLD #### [address] Automated monocyte %Ordered By: Ajit Pettit on 05-04-2023 Monocytes/100 WBC (Bld) 6.3 % Normal . [facility] Comment on above: Performed By: #### C BC, CMP, FE and TIBC, LIPID, URMA, LDLD #### [facility] [address] Automated neutrophil %Ordere d By: Ajit Spasic on 05-04-2023 Neutrophils/100 WBC (Bld) 70.0 % Normal . [facility] Comment on above: Performed By: #### C BC, CMP, FE and TIBC, LIPID, URMA, LDLD #### [facility] [address] Bilirubin.total [Mass/volume ] in Serum or PlasmaOrdered By: Ajit Spasic on 05-04-2023 Bilirubin [Mass/Vol] 0.3 mg/dL Normal 0.3-1.0 [facility] Comment on above: Performed By: #### C BC, CMP, FE and TIBC, LIPID, URMA, LDLD #### [address] Calcium [Mass/volume] in Ser um or PlasmaOrdered By: Ajit Spasic on 05-04-2023 Calcium [Mass/Vol] 9.6 mg/dL Normal 8.6-10.3 [facility] Comment on above: Performed By: #### C BC, CMP, FE and TIBC, LIPID, URMA, LDLD #### [address] Carbon dioxide, total [Moles /volume] in Serum or PlasmaOrdered By: Ajit Spasic on 05-04-2023 CO2 [Moles/Vol] 28.5 mmol/L Normal 21.0-31.0 [facility] Comment on above: Performed By: #### C BC, CMP, FE and TIBC, LIPID, URMA, LDLD #### [place] [address] [place] Chloride [Moles/volume] in S alissa or PlasmaOrdered By: Ajit Spasic on 05-04-2023 Chloride [Moles/Vol] 100 mmol/L Normal 98-107 [facility] Comment on above: Performed By: #### C BC, CMP, FE and TIBC, LIPID, URMA, LDLD #### [facility] [address] Cholesterol [Mass/volume] in Serum or PlasmaOrdered By: Ajit Pettit on 05-04-2023 Cholesterol [Mass/Vol] 180 mg/dL Normal 140-[address] [facility] Comment on above: Chol less than 200 m g/dl low riskChol 201-239 mg/dl borderline riskChol 240 mg/dl and greater high risk Result Comment: Chol less than 200 mg/dl low risk Chol 201-239 mg/dl borderline risk Chol 240 mg/dl and greater high risk Performed By: #### C BC, CMP, FE and TIBC, LIPID, URMA, LDLD #### [facility] [address] Cholesterol in LDL Calc [Mas s/Vol]Ordered By: Ajit Pettit on 05-04-2023 Cholesterol in LDL [Mass/Vol] 81 mg/dL 0-100 [facility] Comment on above: LDL ATP III CLASSIFI CATIONLDL less than 100 mg/dL OptimalLDL 100-129 mg/dL Near or above optimalLDL 130-159 mg/dL Borderline highLDL 160-189 mg/dL HighLDL greater than 189 mg/dL Very high Cholesterol in VLDL Calc [Ma ss/Vol]Ordered By: Ajit Pettit on 05-04-2023 Cholesterol in VLDL [Mass/Vol] 46 mg/dL [facility] Complete Blood Count Auto Di ffon 05-04-2023 Mean Corpuscular HGB Conc 33.5 g/dL Normal 32.0-35.0 [facility] Comment on above: Performed By: #### C BC, CMP, FE and TIBC, LIPID, URMA, LDLD #### [facility] [address] NRBC% 0.1 /100{WBC} Normal 0-0.5 [facility] Comment on above: Performed By: #### C BC, CMP, FE and TIBC, LIPID, URMA, LDLD #### [facility] [address] Comprehensive Metabolic Pane mark 05-04-2023 Albumin [Mass/Vol] 4.4 g/dL Normal 3.5-5.7 [facility] Comment on above: Performed By: #### C BC, CMP, FE and TIBC, LIPID, URMA, LDLD #### [address] GFR/1.73 sq M.predicted MDRD (S/P/Bld) [Vol rate/Area] mL/min/{1.73_m2} Normal [facility] Comment on above: Performed By: #### C BC, CMP, FE and TIBC, LIPID, URMA, LDLD #### [address] Creatinine [Mass/volume] in Serum or PlasmaOrdered By: Ajit Pettit on 05-04-2023 Creatinine [Mass/Vol] 0.65 mg/dL Normal 0.60-1.20 [facility] Comment on above: Performed By: #### C BC, CMP, FE and TIBC, LIPID, URMA, LDLD #### [address] Erythrocyte distribution wid th [Ratio] by Automated countOrdered By: Ajit Pettit on 05-04-2023 Erythrocyte distribution width (RBC) [Ratio] 13.4 % Normal 11.9-15.3 [facility] Comment on above: Performed By: #### C BC, CMP, FE and TIBC, LIPID, URMA, LDLD #### [address] Erythrocytes [#/volume] in B lood by Automated countOrdered By: Ajit Pettit on 05-04-2023 RBC (Bld) [#/Vol] 4.68 10*6/uL Normal 3.60-5.00 [facility] Comment on above: Performed By: #### C BC, CMP, FE and TIBC, LIPID, URMA, LDLD #### [address] [place] [address] [place] FE PROon 05-04-2023 % Iron Saturation 20.0 % Normal 20-50 [facility] Comment on above: Performed By: #### C BC, CMP, FE and TIBC, LIPID, URMA, LDLD #### [facility] [address] Total Iron Binding Capacity 476 ug/dL High 255-450 [facility] Comment on above: Performed By: #### C BC, CMP, FE and TIBC, LIPID, URMA, LDLD #### [facility] [address] Ferritin [Mass/volume] in Se rum or PlasmaOrdered By: Ajit Pettit on 05-04-2023 Ferritin [Mass/Vol] 90.4 ng/mL Normal 11.0-306.8 [facility] Comment on above: Performed By: #### C BC, CMP, FE and TIBC, LIPID, URMA, LDLD #### [facility] [address] Glucose [Mass/volume] in Ser um or PlasmaOrdered By: Ajit Pettit on 05-04-2023 Glucose [Mass/Vol] 124 mg/dL High 70-100 [facility] Comment on above: ADA recommended refe rence rangeRandom Glucose Reference Range is dependent on time and content of last meal. Glucose of more than 200 mg/dL in a nonstressed, ambulatory subject supports the diagnosis of Diabetes Mellitus. Result Comment: [place] om Glucose Reference Range is dependent on time and content of last meal. Glucose of more than 200 mg/dL in a nonstressed, ambulatory subject supports the diagnosis of Diabetes Mellitus. ADA recommended reference range Performed By: #### C BC, CMP, FE and TIBC, LIPID, URMA, LDLD #### [facility] [address] Hematocrit [Volume Fraction] of Blood by Automated countOrdered By: Ajit Pettit on 05-04-2023 Hematocrit (Bld) [Volume fraction] 41.7 % Normal 34.0-46.4 [facility] Comment on above: Performed By: #### C BC, CMP, FE and TIBC, LIPID, URMA, LDLD #### [facility] [address] Hemoglobin [Mass/volume] in BloodOrdered By: Ajit Pettit on 05-04-2023 Hemoglobin (Bld) [Mass/Vol] 14.0 g/dL Normal 11.8-15.4 [facility] Comment on above: Performed By: #### C BC, CMP, FE and TIBC, LIPID, URMA, LDLD #### [facility] [address] Iron [Mass/volume] in Serum or PlasmaOrdered By: Ajit Pettit on 05-04-2023 Iron [Mass/Vol] 95 ug/dL Normal 50-212 [facility] Comment on above: Performed By: #### C BC, CMP, FE and TIBC, LIPID, URMA, LDLD #### [facility] [address] [place] [address] Iron binding capacity [Mass/ volume] in Serum or PlasmaOrdered By: Ajit Millanc on 05-04-2023 Iron binding capacity [Mass/Vol] 476 ug/dL 255-450 [facility] Iron saturation [Mass Fracti on] in Serum or PlasmaOrdered By: Ajit Polosic on 05-04-2023 Iron saturation [Mass fraction] 20.0 % 20-50 [facility] Leukocytes [#/volume] correc cherie for nucleated erythrocytes in Blood by Automated counOrdered By: Ajit Pettit on 05-04-2023 WBC corrected for nucl RBC Auto (Bld) [#/Vol] 14.4 10*3/uL 3.8-11.6 [facility] Leukocytes [#/volume] in Blo od by Automated countOrdered By: Ajit Pettit on 05-04-2023 WBC (Bld) [#/Vol] 14.4 10*3/uL High 3.8-11.6 [facility] Comment on above: Performed By: #### C BC, CMP, FE and TIBC, LIPID, URMA, LDLD #### [facility] [address] Lipid Panelon 05-04-2023 LDL Cholesterol,Calculated 81 mg/dL Normal 0-100 [facility] Comment on above: Result Comment: LDL ATP III CLASSIFICATION LDL less than 100 mg/dL Optimal LDL 100-129 mg/dL Near or above optimal LDL 130-159 mg/dL Borderline high LDL 160-189 mg/dL High LDL greater than 189 mg/dL Very high Performed By: #### C BC, CMP, FE and TIBC, LIPID, URMA, LDLD #### [facility] [address] Triglyceride w/Reflex 233 mg/dL High 0-149 [facility] Comment on above: Result Comment: TRIG ATP III CLASSIFICATION TRIG less than 150 mg/dL Normal TRIG 150-199 mg/dL Borderline high TRIG 200-500 mg/dL High TRIG greater than 500 mg/dL Very high Standard traceable to the Center for Disease Conrtrol and Prevention (CDC) test method. Performed By: #### C BC, CMP, FE and TIBC, LIPID, URMA, LDLD #### [facility] [address] VLDL CHOLESTEROL 46 mg/dL Normal [facility] Comment on above: Performed By: #### C BC, CMP, FE and TIBC, LIPID, URMA, LDLD #### [facility] [address] Lymphocytes [#/volume] in Bl ood by Automated countOrdered By: Ajit Pettit on 05-04-2023 Lymphocytes (Bld) [#/Vol] 3.2 10*3/uL Normal 1.00-4.8 [facility] Comment on above: Performed By: #### C BC, CMP, FE and TIBC, LIPID, URMA, LDLD #### [facility] [address] [place] [address] [place] Lymphocytes/100 leukocytes i n Blood by Automated countOrdered By: Ajit Pettit on 05-04-2023 Lymphocytes/100 WBC (Bld) 22.3 % Normal . [facility] Comment on above: Performed By: #### C BC, CMP, FE and TIBC, LIPID, URMA, LDLD #### [facility] [address] MCH [Entitic mass] by Automa cherie countOrdered By: Ajit Pettit on 05-04-2023 MCH (RBC) [Entitic mass] 29.8 pg Normal 24.7-34.3 [facility] Comment on above: Performed By: #### C BC, CMP, FE and TIBC, LIPID, URMA, LDLD #### [facility] [address] MCHC Auto (RBC) [Mass/Vol]Or dered By: Ajit Pettti on 05-04-2023 MCHC (RBC) [Mass/Vol] 33.5 g/dL 32.0-35.0 [facility] MCV [Entitic volume] by Auto mated countOrdered By: Ajit Pettit on 05-04-2023 MCV (RBC) [Entitic vol] 89.1 fL Normal 80-100 [facility] Comment on above: Performed By: #### C BC, CMP, FE and TIBC, LIPID, URMA, LDLD #### [facility] [address] Neutrophils [#/volume] in Bl ood by Automated countOrdered By: Ajit Pettit on 05-04-2023 Neutrophils (Bld) [#/Vol] 10.1 10*3/uL High 1.8-7.7 [facility] Comment on above: Performed By: #### C BC, CMP, FE and TIBC, LIPID, URMA, LDLD #### [facility] [address] No Panel InformationOrdered By: Ajit Pettit on 05-04-2023 Estimated GFR (CKD-EPI) > 60.0 mL/Min [facility] Creatinine Clearance (Chem N/A [facility] Nucleated erythrocytes [Pres ence] in Blood by Automated countOrdered By: Ajit Pettit on 05-04-2023 Nucleated RBC Auto Ql (Bld) 0.1 /100{WBC} 0-0.5 [facility] Platelet mean volume [Entiti c volume] in Blood by Automated countOrdered By: Ajit Pettit on 05-04-2023 Platelet mean volume (Bld) [Entitic vol] 8.4 fL Normal 6.3-10.7 [facility] Comment on above: Performed By: #### C BC, CMP, FE and TIBC, LIPID, URMA, LDLD #### [facility] [address] [place] [address] [place] Platelets [#/volume] in Bloo d by Automated countOrdered By: Ajit Pettit on 05-04-2023 Platelets (Bld) [#/Vol] 328 10*3/uL Normal 150-450 [facility] Comment on above: Performed By: #### C BC, CMP, FE and TIBC, LIPID, URMA, LDLD #### [facility] [address] Potassium [Moles/volume] in Serum or PlasmaOrdered By: Ajit Pettit on 05-04-2023 Potassium [Moles/Vol] 5.3 mmol/L High 3.5-5.1 [facility] Comment on above: Performed By: #### C BC, CMP, FE and TIBC, LIPID, URMA, LDLD #### [facility] [address] [place] [address] [place] Protein [Mass/volume] in Ser um or PlasmaOrdered By: Ajit Pettit on 05-04-2023 Protein [Mass/Vol] 6.7 g/dL Normal 6.4-8.9 [facility] Comment on above: Performed By: #### C BC, CMP, FE and TIBC, LIPID, URMA, LDLD #### [facility] [address] Serum globulin measurement b y calculation (mass/volume)Ordered By: Ajit Pettit on 05-04-2023 Globulin (S) [Mass/Vol] 2.3 g/dL Normal [facility] Comment on above: Performed By: #### C BC, CMP, FE and TIBC, LIPID, URMA, LDLD #### [facility] [address] Serum or plasma albumin/glob ulin mass ratioOrdered By: Ajit Pettit on 05-04-2023 Albumin/Globulin [Mass ratio] 1.9 {ratio} Normal [facility] Comment on above: Performed By: #### C BC, CMP, FE and TIBC, LIPID, URMA, LDLD #### [facility] [address] Serum or plasma anion gap de terminationOrdered By: Ajit Pettit on 05-04-2023 Anion gap [Moles/Vol] 11.8 mmol/L Normal 6.0-15.[address] [facility] Comment on above: Performed By: #### C BC, CMP, FE and TIBC, LIPID, URMA, LDLD #### [facility] [address] [place] [address] Serum or plasma high density lipoprotein (HDL) cholesterol measurementOrdered By: Ajit Pettit on 05-04-2023 Cholesterol in HDL [Mass/Vol] 52 mg/dL Normal 23-92 [facility] Comment on above: HDL CHOL ATP-III CLA SSIFICATION Cardiovascular RiskHDL > or equal to 60 mg/dL LOWHDL < 40 mg/dL HIGH Result Comment: HDL CHOL ATP-III CLASSIFICATION Cardiovascular Risk HDL > or equal to 60 mg/dL LOW HDL < 40 mg/dL HIGH Performed By: #### C BC, CMP, FE and TIBC, LIPID, URMA, LDLD #### [facility] [address] Serum or plasma total choles terol/high density lipoprotein (HDL) cholesterol mass ratOrdered By: Ajit Pettit on 05-04-2023 Cholesterol.total/Suellen sterol in HDL [Mass ratio] 3.5 {ratio} Normal <5.0 [facility] Comment on above: Performed By: #### C BC, CMP, FE and TIBC, LIPID, URMA, LDLD #### [facility] [address] [place] [address] Sodium [Moles/volume] in Ser um or PlasmaOrdered By: Ajit Pettit on 05-04-2023 Sodium [Moles/Vol] 135 mmol/L Low 136-145 [facility] Comment on above: Performed By: #### C BC, CMP, FE and TIBC, LIPID, URMA, LDLD #### [address] Thyroid Stim Hormone w/Rflxo n 05-04-2023 Thyroid Stim Hormone w/Rflx 1.97 u[iU]/mL Normal 0.45-5.33 [facility] Comment on above: Result Comment: PERF ORMED BY: [place] [address] PATHOLOGIST LOSS PREVENTION GUARD RIDGE HUERTA M.D. Performed By: #### C BC, CMP, FE and TIBC, LIPID, URMA, LDLD #### [address] Thyrotropin [Units/volume] i n Serum or PlasmaOrdered By: Ajit Pettit on 05-04-2023 TSH Qn 1.97 m[IU]/L 0.45-5.33 [facility] Transferrin [Mass/volume] in Serum or PlasmaOrdered By: Ajit Pettit on 05-04-2023 Transferrin [Mass/Vol] 340 mg/dL Normal 203-[address] [facility] Comment on above: Performed By: #### C BC, CMP, FE and TIBC, LIPID, URMA, LDLD #### [facility] [address] [place] [address] Triglyceride [Mass/volume] i n Serum or PlasmaOrdered By: Ajit Pettit on 05-04-2023 Triglyceride [Mass/Vol] 233 mg/dL 0-149 [facility] Comment on above: TRIG ATP III CLASSIF ICATIONTRIG less than 150 mg/dL NormalTRIG 150-199 mg/dL Borderline highTRIG 200-500 mg/dL High TRIG greater than 500 mg/dL Very highStandard traceable to the Center for Disease Conrtrol and Prevention (CDC) test method. Urea nitrogen [Mass/volume] in Serum or PlasmaOrdered By: Ajit Pettit on 05-04-2023 Urea nitrogen [Mass/Vol] 9 mg/dL Normal 7-25 [facility] Comment on above: Performed By: #### C BC, CMP, FE and TIBC, LIPID, URMA, LDLD #### [facility] [address] [place] [address] Urine Cultureon 05-04-2023 Bacteria identified Cx Nom (U) ORGANISM: Strep. agalactiae Grp B (O:B) [place] Count <10,000 PERFORMED BY: [place] [address] PATHOLOGIST LOSS PREVENTION GUARD RIDGE HUERTA M.D. Normal [facility] Comment on above: Performed By: #### C USTOOL #### [address] Urine culture routineOrdered By: Ajit Pettit on 05-04-2023 Bacteria identified Cx Nom (U) Strep. agalactiae Grp B [facility] XR thoracic spine 3V*on 04-04 XR thoracic spine 3V* [facility] [place] [address] [place] [address] XRay Report Signed Patient: Rachel Mcgarry MR#: [id number] 1 : 1980 Acct:[id number] Age/Sex: 43 / F ADM Date: 04/26/23 Loc: [place] Room: Type: [facility] Attending Dr: Kyler Miramontes MD Copies to: [...] Yeboah Jr., D.O.04/26/2023 1:04 PM Dictation Location: [place] [address] Transcribed By: PWS 04/26/23 1304 Dictated By: Andrés Yeboah Jr, DO 04/26/23 1303 Signed By: 04/26/23 1304 Normal [facility] HCG ( test) IAanil d Ql (U)Ordered By: Kyler Miramontes on 04-14-2023 HCG ( test) Ql (U) Negative [facility] HCG,Urineon 04-14-2023 Beta HCG ( test) Ql (U) Negative Normal [facility] Comment on above: Result Comment: PERF ORMED BY: [place] [address] PATHOLOGIST LOSS PREVENTION GUARD RIDGE HUERTA M.D. Performed By: #### U HCG #### [address] CBC AUTO DIFFon 02-15-2023 BASO # 0.1 103/ul Normal 0.0-0.1 [facility] Comment on above: Performed By: #### C BC #### [facility] [address] [place] [address] Dr. Vito Grimm Basophils/100 WBC (Bld) 0.5 % Normal 0.2-2.0 [facility] Comment on above: Performed By: #### C BC #### [facility] [address] [place] [address] Dr. Vito Grimm EO # 0.1 103/ul Normal 0.0-0.7 [facility] Comment on above: Performed By: #### C BC #### [facility] [address] [place] [address] [address] Vito Grimm Eosinophils/100 WBC (Bld) 0.8 % Critically low 0.9-7.0 [facility] Comment on above: Performed By: #### C BC #### [facility] [address] [place] [address] Dr. Vito Grimm Erythrocyte distribution width (RBC) [Ratio] 13.1 % Normal 11.0-15.0 [facility] Comment on above: Performed By: #### C BC #### [facility] [address] [place] [address] Dr. Vito Grimm Hematocrit (Bld) [Volume fraction] 41.2 % Normal 36.0-48.0 [facility] Comment on above: Performed By: #### C BC #### [facility] [address] [place] [address] Dr. Vito Grimm Hemoglobin (Bld) [Mass/Vol] 13.4 g/dL Normal 12.0-16.0 [facility] Comment on above: Performed By: #### C BC #### [facility] [address] [place] [address] Dr. Vito Grimm IG # 0.05 10e3/ul Critically high 0.00-0.03 [facility] Comment on above: Performed By: #### C BC #### [facility] [address] [place] [address] Dr. Vito Grimm IG % 0.4 % Normal 0.0-0.5 [facility] Comment on above: Performed By: #### C BC #### [facility] [address] [place] [address] Dr. Vito Grimm LYMPH # 4.8 103/ul Critically high 1.2-3.8 [facility] Comment on above: Performed By: #### C BC #### [facility] [address] [place] [address] Dr. Vito Grimm Lymphocytes/100 WBC (Bld) 38.8 % Normal 20.5-60.0 [facility] Comment on above: Performed By: #### C BC #### [facility] [address] [place] [address] Dr. Vito Grimm MANUAL DIFF REQ NO Normal [facility] Comment on above: Performed By: #### C BC #### [facility] [address] [place] [address] Dr. Vito Grimm MCH (RBC) [Entitic mass] 29.9 pg Normal 26.7-34.0 [facility] Comment on above: Performed By: #### C BC #### [facility] [address] [place] [address] Dr. Vito Grimm MCHC (RBC) [Mass/Vol] 32.5 g/dL Normal 29.9-35.2 [facility] Comment on above: Performed By: #### C BC #### [facility] [address] [place] [address] Dr. Vito Grimm MCV (RBC) [Entitic vol] 92.0 fL Normal 81.0-99.0 [facility] Comment on above: Performed By: #### C BC #### [facility] [address] [place] [address] Dr. Vito Grimm MONO # 0.9 103/ul Critically high 0.3-0.8 [facility] Comment on above: Performed By: #### C BC #### [facility] [address] [place] [address] Dr. Vito Grimm Monocytes/100 WBC (Bld) 7.4 % Normal 1.7-12.0 [facility] Comment on above: Performed By: #### C BC #### [facility] [address] [place] [address] Dr. Vito Grimm NEUT # 6.5 103/ul Normal 1.4-6.5 [facility] Comment on above: Performed By: #### C BC #### [facility] [address] [place] [address] Dr. Vito Grimm Neutrophils/100 WBC (Bld) 52.1 % Normal 43.0-75.0 [facility] Comment on above: Performed By: #### C BC #### [facility] [address] [place] [address] Dr. Vito Grimm Platelet mean volume (Bld) [Entitic vol] 10.0 fL Normal 9.5-13.5 [facility] Comment on above: Performed By: #### C BC #### [facility] [address] [place] [address] Dr. Vito Grimm PLT 298 103/ul Normal 150-450 [facility] Comment on above: Performed By: #### C BC #### [facility] [address] [place] [address] Dr. Vito Grimm RBC 4.48 106/ul Normal 4.20-5.40 [facility] Comment on above: Performed By: #### C BC #### [facility] [address] [place] [address] Dr. Vito Grimm WBC 12.4 103/ul Critically high 4.0-11.0 [facility] Comment on above: Performed By: #### C BC #### [facility] [address] [place] [address] Dr. Vito Grimm DEPAKENE/ VALPROIC ACIDon DEPAKENE 49.4 ug/ml Critically low 50.0-100.0 [facility] Comment on above: Performed By: #### C MP, HSTROPN #### [facility] [address] [place] [address] Dr. Vito Grimm LACTATE/LACTIC ACIDon 2022 Lactate [Moles/Vol] 2.7 mmol/L Critically high 0.4-2.0 [facility] Comment on above: Performed By: #### L ACT #### [facility] [address] [place] [address] Dr. Vito Grimm PROF CHEM 8 (BAS METB)on Anion gap [Moles/Vol] 17.6 mmol/L Normal Th [facility] Comment on above: Performed By: #### B MP #### [facility] [address] [place] [address] Dr. Vito Grimm Calcium [Mass/Vol] 8.7 mg/dL Normal 8.5-10.1 [facility] Comment on above: Performed By: #### B MP #### [facility] [address] [place] [address] Dr. Vito Grimm Chloride [Moles/Vol] 99 mmol/L Normal 98-107 [facility] Comment on above: Performed By: #### B MP #### [facility] [address] [place] [address] Dr. Vito Grimm CO2 [Moles/Vol] 23.5 mmol/L Normal 21.0-32.0 [facility] Comment on above: Performed By: #### B MP #### [facility] [address] [address] [address] Vito Grimm Creatinine [Mass/Vol] 0.75 mg/dL Normal 0.55-1.02 [facility] Comment on above: Performed By: #### B MP #### [facility] [address] [address] [address] Vito Grimm EGFR-AF KAZAKH >60 Normal >=60 [facility] Comment on above: Performed By: #### B MP #### [facility] [address] [place] [address] Dr. Vito Grimm EGFR-NON AF KAZAKH >60 Normal >=60 [facility] Comment on above: Performed By: #### B MP #### [facility] [address] [place] [address] Dr. Vito Grimm Glucose [Mass/Vol] 273 mg/dL Critically high 74-106 T [facility] Comment on above: Performed By: #### B MP #### [facility] [address] [place] [address] Dr. Vito Grimm Potassium [Moles/Vol] 4.1 mmol/L Normal 3.5-5.1 [facility] Comment on above: Performed By: #### B MP #### [facility] [address] [place] [address] Dr. Vito Grimm Sodium [Moles/Vol] 136 mmol/L Normal 136-145 [facility] Comment on above: Performed By: #### B MP #### [facility] [address] [place] [address] Dr. Vito Grimm Urea nitrogen [Mass/Vol] 6.0 mg/dL Critically low 7.0-18.0 [facility] Comment on above: Performed By: #### B MP #### [facility] [address] [place] [address] Dr. Vito Grimm Urea nitrogen/Creatinine [Mass ratio] 8.0 mg/mg Normal [facility] Comment on above: Performed By: #### B MP #### [facility] [address] [place] [address] Dr. Vito Grimm Alanine aminotransferase [En zymatic activity/volume] in Serum or PlasmaOrdered By: Ajit Pettit on 02-09-2023 ALT [Catalytic activity/Vol] 29 U/L 7-52 [facility] Albumin [Mass/volume] in Ser um or Plasma by Bromocresol green (BCG) dye binding methoOrdered By: Ajit Polosic on 02-09-2023 Albumin BCG dye [Mass/Vol] 4.4 g/dL 3.5-5.7 [facility] Alkaline phosphatase [Enzyma tic activity/volume] in Serum or PlasmaOrdered By: Ajit Polosic on 02-09-2023 ALP [Catalytic activity/Vol] 72 U/L 34-104 [facility] Aspartate aminotransferase [ Enzymatic activity/volume] in Serum or PlasmaOrdered By: Ajit Polosic on 02-09-2023 AST [Catalytic activity/Vol] 27 U/L 13-39 [facility] Basophils Auto (Bld) [#/Vol] Ordered By: Ajit Millanc on 02-09-2023 Basophils (Bld) [#/Vol] 0.1 10*3/uL 0.0-0.2 [facility] Basophils/100 WBC Auto (Bld) Ordered By: Ajit Millanc on 02-09-2023 Basophils/100 WBC (Bld) 0.6 % . [facility] Bilirubin.total [Mass/volume ] in Serum or PlasmaOrdered By: Ajit Millanc on 02-09-2023 Bilirubin [Mass/Vol] 0.3 mg/dL 0.3-1.0 [facility] Calcium [Mass/volume] in Ser um or PlasmaOrdered By: Ajit Spasic on 02-09-2023 Calcium [Mass/Vol] 9.3 mg/dL 8.6-10.3 [facility] Carbon dioxide, total [Moles /volume] in Serum or PlasmaOrdered By: Ajit Polosic on 02-09-2023 CO2 [Moles/Vol] 23.8 mmol/L 21.0-31.0 [facility] Chloride [Moles/volume] in S alissa or PlasmaOrdered By: Ajit Spasic on 02-09-2023 Chloride [Moles/Vol] 101 mmol/L 98-107 [facility] Cholesterol [Mass/volume] in Serum or PlasmaOrdered By: Ajit Pettit on 02-09-2023 Cholesterol [Mass/Vol] 166 mg/dL 140-[address] [facility] Comment on above: Chol less than 200 m g/dl low riskChol 201-239 mg/dl borderline riskChol 240 mg/dl and greater high risk Cholesterol in LDL Calc [Mas s/Vol]Ordered By: Ajit Pettit on 02-09-2023 Cholesterol in LDL [Mass/Vol] TNP [facility] Comment on above: Test not performed Cholesterol in LDL [Mass/vol ume] in Serum or PlasmaOrdered By: Ajit Pettit on 02-09-2023 Cholesterol in LDL [Mass/Vol] 61 mg/dL 0-100 [facility] Comment on above: LDL ATP III CLASSIFI CATIONLDL less than 100 mg/dL OptimalLDL 100-129 mg/dL Near or above optimalLDL 130-159 mg/dL Borderline highLDL 160-189 mg/dL HighLDL greater than 189 mg/dL Very high Cholesterol in VLDL Calc [Ma ss/Vol]Ordered By: Ajit Pettit on 02-09-2023 Cholesterol in VLDL [Mass/Vol] 97 mg/dL [facility] Creatinine [Mass/volume] in Serum or PlasmaOrdered By: Ajit Pettit on 02-09-2023 Creatinine [Mass/Vol] 0.75 mg/dL 0.60-1.20 [facility] Eosinophils Auto (Bld) [#/Vo l]Ordered By: Aijt Pettit on 02-09-2023 Eosinophils (Bld) [#/Vol] 0.1 10*3/uL 0.0-0.45 [facility] Eosinophils/100 WBC Auto (Bl d)Ordered By: Ajit Pettit on 02-09-2023 Eosinophils/100 WBC (Bld) 0.7 % . [facility] Erythrocyte distribution wid th Auto (RBC) [Ratio]Ordered By: Ajit Pettit on 02-09-2023 Erythrocyte distribution width (RBC) [Ratio] 13.1 % 11.9-15.3 [facility] Globulin Calc (S) [Mass/Vol] Ordered By: Ajit Pettit on 02-09-2023 Globulin (S) [Mass/Vol] 2.3 g/dL [facility] Glucose [Mass/volume] in Ser um or PlasmaOrdered By: Ajit Pettit on 02-09-2023 Glucose [Mass/Vol] 286 mg/dL 70-100 [facility] Comment on above: ADA recommended refe rence rangeRandom Glucose Reference Range is dependent on time and content of last meal. Glucose of more than 200 mg/dL in a nonstressed, ambulatory subject supports the diagnosis of Diabetes Mellitus. Hematocrit Auto (Bld) [Volum e fraction]Ordered By: Ajit Pettit on 02-09-2023 Hematocrit (Bld) [Volume fraction] 39.7 % 34.0-46.4 [facility] Hemoglobin [Mass/volume] in BloodOrdered By: Ajit Pettit on 02-09-2023 Hemoglobin (Bld) [Mass/Vol] 13.1 g/dL 11.8-15.4 [facility] Leukocytes [#/volume] correc cherie for nucleated erythrocytes in Blood by Automated counOrdered By: Ajit Pettit on 02-09-2023 WBC corrected for nucl RBC Auto (Bld) [#/Vol] 13.2 10*3/uL 3.8-11.6 [facility] Lymphocytes Auto (Bld) [#/Vo l]Ordered By: Ajit Pettit on 02-09-2023 Lymphocytes (Bld) [#/Vol] 3.6 10*3/uL 1.00-4.8 [facility] Lymphocytes/100 WBC Auto (Bl d)Ordered By: Ajit Pettit on 02-09-2023 Lymphocytes/100 WBC (Bld) 27.3 % . [facility] MCH Auto (RBC) [Entitic mass ]Ordered By: Ajit Pettit on 02-09-2023 MCH (RBC) [Entitic mass] 29.5 pg 24.7-34.3 [facility] MCHC Auto (RBC) [Mass/Vol]Or dered By: Ajit Pettit on 02-09-2023 MCHC (RBC) [Mass/Vol] 33.1 g/dL 32.0-35.0 [facility] MCV Auto (RBC) [Entitic vol] Ordered By: Ajit Pettit on 02-09-2023 MCV (RBC) [Entitic vol] 89.3 fL 80-100 [facility] Monocytes Auto (Bld) [#/Vol] Ordered By: Ajit Pettit on 02-09-2023 Monocytes (Bld) [#/Vol] 0.9 10*3/uL 0.0-0.8 [facility] Monocytes/100 WBC Auto (Bld) Ordered By: Ajit Pettit on 02-09-2023 Monocytes/100 WBC (Bld) 7.0 % . [facility] Neutrophils Auto (Bld) [#/Vo l]Ordered By: Ajit Pettit on 02-09-2023 Neutrophils (Bld) [#/Vol] 8.5 10*3/uL 1.8-7.7 [facility] Neutrophils/100 WBC Auto (Bl d)Ordered By: Ajit Pettit on 02-09-2023 Neutrophils/100 WBC (Bld) 64.4 % . [facility] No Panel InformationOrdered By: Ajit Pettit on 02-09-2023 Estimated GFR (CKD-EPI) > 60.0 mL/Min [facility] Creatinine Clearance (Chem N/A [facility] Nucleated erythrocytes [Pres ence] in Blood by Automated countOrdered By: Ajit Pettit on 02-09-2023 Nucleated RBC Auto Ql (Bld) 0.0 /100{WBC} 0-0.5 [facility] Platelet mean volume Auto (B ld) [Entitic vol]Ordered By: Ajit Pettit on 02-09-2023 Platelet mean volume (Bld) [Entitic vol] 8.8 fL 6.3-10.7 [facility] Platelets Auto (Bld) [#/Vol] Ordered By: Ajit Pettit on 02-09-2023 Platelets (Bld) [#/Vol] 295 10*3/uL 150-450 [facility] Potassium [Moles/volume] in Serum or PlasmaOrdered By: Ajit Pettit on 05-09-2023 Potassium [Moles/Vol] 4.5 mmol/L 3.5-5.1 [facility] Protein [Mass/volume] in Ser um or PlasmaOrdered By: Ajit Pettit on 02-09-2023 Protein [Mass/Vol] 6.7 g/dL 6.4-8.9 [facility] RBC Auto (Bld) [#/Vol]Ordere d By: Ajit Pettit on 02-09-2023 RBC (Bld) [#/Vol] 4.44 10*6/uL 3.60-5.00 [facility] Serum or plasma albumin/glob ulin mass ratioOrdered By: Ajit Pettit on 02-09-2023 Albumin/Globulin [Mass ratio] 1.9 {ratio} [facility] Serum or plasma anion gap de terminationOrdered By: Ajit Pettit on 02-09-2023 Anion gap [Moles/Vol] 15.7 mmol/L 6.0-15.[address] [facility] Serum or plasma high density lipoprotein (HDL) cholesterol measurementOrdered By: Ajit Pettit on 02-09-2023 Cholesterol in HDL [Mass/Vol] 41 mg/dL 35-85 [facility] Comment on above: HDL CHOL ATP-III CLA SSIFICATION Cardiovascular RiskHDL > or equal to 60 mg/dL LOWHDL < 40 mg/dL HIGH Serum or plasma total choles terol/high density lipoprotein (HDL) cholesterol mass ratOrdered By: Ajit Pettit on 02-09-2023 Cholesterol.total/Suellen sterol in HDL [Mass ratio] 4.0 {ratio} <5.0 [facility] Sodium [Moles/volume] in Ser um or PlasmaOrdered By: Ajit Pettit on 02-09-2023 Sodium [Moles/Vol] 136 mmol/L 136-145 [facility] Thyrotropin [Units/volume] i n Serum or PlasmaOrdered By: Ajit Pettit on 02-09-2023 TSH Qn 2.98 m[IU]/L 0.45-5.33 [facility] Triglyceride [Mass/volume] i n Serum or PlasmaOrdered By: Ajit Pettit on 02-09-2023 Triglyceride [Mass/Vol] 485 mg/dL 0-149 [facility] Comment on above: If the triglyceride [...] on 02-09-2023 Urea nitrogen [Mass/Vol] 10 mg/dL 04-27 [facility] Urine culture routineOrdered By: Ajit Pettit on 02-09-2023 Bacteria identified Cx Nom (U) 2 Days [facility] WBC Auto (Bld) [#/Vol]Ordere d By: Ajit Pettit on 02-09-2023 WBC (Bld) [#/Vol] 13.2 10*3/uL 3.8-11.6 [facility] ACETONE SERUMon 01-29-2023 ACETONE Negative Normal NEGATIVE [facility] Comment on above: Performed By: #### A CETON #### [facility] [address] [place] [address] Dr. Vito Grimm CBC AUTO DIFFon 01-29-2023 BASO # 0.1 103/ul Normal 0.0-0.1 [facility] Comment on above: Performed By: #### C BC #### [facility] [address] [place] [address] Dr. Vito Grimm Basophils/100 WBC (Bld) 0.5 % Normal 0.2-2.0 [facility] Comment on above: Performed By: #### C BC #### [facility] [address] [place] [address] Dr. Vito Grimm EO # 0.1 103/ul Normal 0.0-0.7 [facility] Comment on above: Performed By: #### C BC #### [facility] [address] [place] [address] Dr. Vito Grimm Eosinophils/100 WBC (Bld) 0.7 % Critically low 0.9-7.0 [facility] Comment on above: Performed By: #### C BC #### [facility] [address] [place] [address] Dr. Vito Grimm Erythrocyte distribution width (RBC) [Ratio] 12.9 % Normal 11.0-15.0 [facility] Comment on above: Performed By: #### C BC #### [facility] [address] [place] [address] Dr. Vito Grimm Hematocrit (Bld) [Volume fraction] 39.0 % Normal 36.0-48.0 [facility] Comment on above: Performed By: #### C BC #### [facility] [address] [place] [address] Dr. Vito Grimm Hemoglobin (Bld) [Mass/Vol] 13.1 g/dL Normal 12.0-16.0 [facility] Comment on above: Performed By: #### C BC #### [facility] [address] [place] [address] Dr. Vito Grimm IG # 0.11 10e3/ul Critically high 0.00-0.03 [facility] Comment on above: Performed By: #### C BC #### [facility] [address] [place] [address] Dr. Vito Grimm IG % 0.8 % Critically high 0.0-0.5 [facility] Comment on above: Performed By: #### C BC #### [facility] [address] [place] [address] Dr. Vito Grimm LYMPH # 4.6 103/ul Critically high 1.2-3.8 [facility] Comment on above: Performed By: #### C BC #### [facility] [address] [place] [address] Dr. Vito Grimm Lymphocytes/100 WBC (Bld) 34.4 % Normal 20.5-60.0 [facility] Comment on above: Performed By: #### C BC #### [facility] [address] [place] [address] Dr. Vito Grimm MANUAL DIFF REQ NO Normal [facility] Comment on above: Performed By: #### C BC #### [facility] [address] [place] [address] Dr. Vito Grimm MCH (RBC) [Entitic mass] 29.9 pg Normal 26.7-34.0 [facility] Comment on above: Performed By: #### C BC #### [facility] [address] [place] [address] Dr. Vito Grimm MCHC (RBC) [Mass/Vol] 33.6 g/dL Normal 29.9-35.2 [facility] Comment on above: Performed By: #### C BC #### [facility] [address] [place] [address] Dr. Vito Grimm MCV (RBC) [Entitic vol] 89.0 fL Normal 81.0-99.0 [facility] Comment on above: Performed By: #### C BC #### [facility] [address] [place] [address] Dr. Vito Grimm MONO # 1.0 103/ul Critically high 0.3-0.8 [facility] Comment on above: Performed By: #### C BC #### [facility] [address] [place] [address] Dr. Vito Grimm Monocytes/100 WBC (Bld) 7.3 % Normal 1.7-12.0 [facility] Comment on above: Performed By: #### C BC #### [facility] [address] [place] [address] Dr. Vito Grimm NEUT # 7.5 103/ul Critically high 1.4-6.5 [facility] Comment on above: Performed By: #### C BC #### [facility] [address] [place] [address] Dr. Vito Grimm Neutrophils/100 WBC (Bld) 56.3 % Normal 43.0-75.0 [facility] Comment on above: Performed By: #### C BC #### [facility] [address] [place] [address] Dr. Vito Grimm Platelet mean volume (Bld) [Entitic vol] 9.6 fL Normal 9.5-13.5 [facility] Comment on above: Performed By: #### C BC #### [facility] [address] [place] [address] Dr. Vito Grimm PLT 272 103/ul Normal 150-450 [facility] Comment on above: Performed By: #### C BC #### [facility] [address] [place] [address] Dr. Vito Grimm RBC 4.38 106/ul Normal 4.20-5.40 [facility] Comment on above: Performed By: #### C BC #### [facility] [address] [place] [address] Dr. Vito Grimm WBC 13.4 103/ul Critically high 4.0-11.0 [facility] Comment on above: Performed By: #### C BC #### [facility] [address] [place] [address] Dr. Vito Grimm ER URINE PROFILEon 3 Bilirubin Ql (U) Negative Normal NEGATIVE [facility] Comment on above: Performed By: #### E RUR #### [facility] [address] [place] [address] Dr. Vito Grimm Clarity (U) SL CLOUDY Abnormal CLEAR [facility] Comment on above: Performed By: #### E RUR #### [facility] [address] [place] [address] Dr. Vito Grimm Color (U) LT. YELLOW Normal YELLOW [facility] Comment on above: Performed By: #### E RUR #### [facility] [address] [place] [address] Dr. Vito Grimm ERUAHD A micrscopic examina tion will be performed if indicated. Normal [facility] Comment on above: Performed By: #### E RUR #### [facility] [address] [place] [address] Dr. Vito Grimm Glucose Ql (U) >1000 Abnormal NEGATIVE [facility] Comment on above: Performed By: #### E RUR #### [facility] [address] [place] [address] Dr. Vito Grimm Hemoglobin Ql (U) Negative Normal NEGATIVE [facility] Comment on above: Performed By: #### E RUR #### [facility] [address] [place] [address] Dr. Vito Grimm Ketones Ql (U) Negative Normal NEGATIVE [facility] Comment on above: Performed By: #### E RUR #### [facility] [address] [place] [address] Dr. Vito Grimm LEUKOCYTES Negative Normal NEGATIVE [facility] Comment on above: Performed By: #### E RUR #### [facility] [address] [place] [address] Dr. Vito Grimm Nitrite Ql (U) Negative Normal NEGATIVE [facility] Comment on above: Performed By: #### E RUR #### [facility] [address] [place] [address] Dr. Vito Grimm pH (U) 5.5 [pH] Normal 5-9 [facility] Comment on above: Performed By: #### E RUR #### [facility] [address] [place] [address] Dr. Vito Grimm SPEC GRAVITY 1.010 Normal 1.005-<=1. 025 [facility] Comment on above: Performed By: #### E RUR #### [facility] [address] [place] [address] Dr. Vito Grimm UA PROTEIN Negative Normal NEGATIVE/ TRACE [facility] Comment on above: Performed By: #### E RUR #### [facility] [address] [place] [address] Dr. Vito Grimm UR MICRO IND NOT INDICATED Normal [facility] Comment on above: Performed By: #### E RUR #### [facility] [address] [place] [address] Dr. Vito Grimm Urobilinogen Qn (U) 0.2 {Helen'U}/dL Normal 0.2 - 1. 0 [facility] Comment on above: Performed By: #### E RUR #### [facility] [address] [place] [address] Dr. Vito Grimm POINT OF CARE GLUCOSEon 04-2 8-2023 Glucose [Mass/Vol] 279 mg/dL Critically high 74-106 T [facility] Comment on above: Performed By: #### P OCGLUC #### [facility] [address] [place] [address] Dr. Vito Grimm PROF 14(COMP METB)on 023 Albumin [Mass/Vol] 3.5 g/dL Normal 3.4-5.0 [facility] Comment on above: Performed By: #### C MP, HSTROPN #### [facility] [address] [address] [address] Vito Grimm Albumin/Globulin [Mass ratio] 1.0 {ratio} Normal [facility] Comment on above: Performed By: #### C MP, HSTROPN #### [facility] [address] [place] [address] Dr. Vito Grimm ALP [Catalytic activity/Vol] 85 U/L Normal 46-116 [facility] Comment on above: Performed By: #### C MP, HSTROPN #### [facility] [address] [place] [address] Dr. Vito Grimm ALT [Catalytic activity/Vol] 28 U/L Normal 14-59 [facility] Comment on above: Performed By: #### C MP, HSTROPN #### [facility] [address] [place] [address] Dr. Vito Grimm Anion gap [Moles/Vol] 15.9 mmol/L Normal [facility] Comment on above: Performed By: #### C MP, HSTROPN #### [facility] [address] [place] [address] Dr. Vito Grimm AST [Catalytic activity/Vol] 16 U/L Normal 15-37 [facility] Comment on above: Performed By: #### C MP, HSTROPN #### [facility] [address] [place] [address] Dr. Vito Grimm Bilirubin [Mass/Vol] 0.2 mg/dL Normal 0.2-1.0 [facility] Comment on above: Performed By: #### C MP, HSTROPN #### [facility] [address] [address] [address] Vito Grimm Calcium [Mass/Vol] 8.8 mg/dL Normal 8.5-10.1 [facility] Comment on above: Performed By: #### C MP, HSTROPN #### [facility] [address] [address] [address] Vito Grimm Chloride [Moles/Vol] 96 mmol/L Critically low 98-107 [facility] Comment on above: Performed By: #### C MP, HSTROPN #### [facility] [address] [address] [address] Vito Grimm CO2 [Moles/Vol] 24.1 mmol/L Normal 21.0-32.0 [facility] Comment on above: Performed By: #### C MP, HSTROPN #### [facility] [address] [address] [address] Vito Grimm Creatinine [Mass/Vol] 0.85 mg/dL Normal 0.55-1.02 [facility] Comment on above: Performed By: #### C MP, HSTROPN #### [facility] [address] [place] [address] Dr. Vito Grimm EGFR-AF KAZAKH >60 Normal >=60 [facility] Comment on above: Performed By: #### C MP, HSTROPN #### [facility] [address] [address] [address] Vito Grimm EGFR-NON AF KAZAKH >60 Normal >=60 [facility] Comment on above: Performed By: #### C MP, HSTROPN #### [facility] [address] [address] [address] Vito Grimm Globulin (S) [Mass/Vol] 3.6 g/dL Normal [facility] Comment on above: Performed By: #### C MP, HSTROPN #### [facility] [address] [address] [address] Vito Grimm Glucose [Mass/Vol] 350 mg/dL Critically high 74-106 T [facility] Comment on above: Performed By: #### C MP, HSTROPN #### [facility] [address] [place] [address] Dr. Vito Grimm Potassium [Moles/Vol] 4.0 mmol/L Normal 3.5-5.1 [facility] Comment on above: Performed By: #### C MP, HSTROPN #### [facility] [address] [place] [address] Dr. Vito Grimm Protein [Mass/Vol] 7.1 g/dL Normal 6.4-8.2 [facility] Comment on above: Performed By: #### C MP, HSTROPN #### [facility] [address] [place] [address] Dr. Vito Grimm Sodium [Moles/Vol] 132 mmol/L Critically low 136-145 Th [facility] Comment on above: Performed By: #### C MP, HSTROPN #### [facility] [address] [place] [address] Dr. Vito Grimm Urea nitrogen [Mass/Vol] 10.0 mg/dL Normal 7.0-18.0 [facility] Comment on above: Performed By: #### C MATHIEU, HSTROPN #### [facility] [address] [place] [address] Dr. Vito Grimm Urea nitrogen/Creatinine [Mass ratio] 11.8 mg/mg Normal [facility] Comment on above: Performed By: #### C MP, HSTROPN #### [facility] [address] [place] [address] Dr. Vito Grimm TROPONIN, HIGH SENSITIVITYon 01-29-2023 HSTROP <4.0 Normal 4.0-51.3 [facility] Comment on above: Result Comment: CUT- OFF POINTS HAVE BEEN ESTABLISHED BASED ON THE FOURTH UNIVERSAL DEFINITIONS OF MYOCARDIAL INFARCTION. THE UPPER REFERENCE LIMIT (URL) OF TROPONIN, DEFINED THE 99TH PERCENTILE OF cTnI DISTRIBUTION IN A REFERENCE POPULATION, HAS BEEN CONFIRMED THE DECISION THRESHOLD FOR DE DIAGNOSIS. Performed By: #### C MP, HSTROPN #### [facility] [address] [place] [address] Dr. Vito Grimm HCG ( test) IAPanchitocashcatrina d Ql (U)Ordered By: Kyler Miramontes on 11-18-2022 HCG ( test) Ql (U) Negative [facility] CBC AUTO DIFFon 11-12-2022 BASO # 0.1 103/ul Normal 0.0-0.1 [facility] Comment on above: Performed By: #### C MP, HSTROPN #### [facility] [address] [place] [address] Dr. Vito Grimm Basophils/100 WBC (Bld) 0.6 % Normal 0.2-2.0 [facility] Comment on above: Performed By: #### C MP, HSTROPN #### [facility] [address] [place] [address] Dr. Vito Grimm EO # 0.2 103/ul Normal 0.0-0.7 [facility] Comment on above: Performed By: #### C MP, HSTROPN #### [facility] [address] [place] [address] Dr. Vito Grimm Eosinophils/100 WBC (Bld) 1.1 % Normal 0.9-7.0 [facility] Comment on above: Performed By: #### C MP, HSTROPN #### [facility] [address] [place] [address] Dr. Vito Grimm Erythrocyte distribution width (RBC) [Ratio] 12.6 % Normal 11.0-15.0 [facility] Comment on above: Performed By: #### C MP, HSTROPN #### [facility] [address] [place] [address] Dr. Vito Grimm Hematocrit (Bld) [Volume fraction] 39.7 % Normal 36.0-48.0 [facility] Comment on above: Performed By: #### C MP, HSTROPN #### [facility] [address] [place] [address] Dr. Vito Grimm Hemoglobin (Bld) [Mass/Vol] 12.9 g/dL Normal 12.0-16.0 [facility] Comment on above: Performed By: #### C MP, HSTROPN #### [facility] [address] [place] [address] Dr. Vito Grimm IG # 0.07 10e3/ul Critically high 0.00-0.03 [facility] Comment on above: Performed By: #### C MP, HSTROPN #### [facility] [address] [place] [address] Dr. Vito Grimm IG % 0.5 % Normal 0.0-0.5 [facility] Comment on above: Performed By: #### C MP, HSTROPN #### [facility] [address] [place] [address] Dr. Vito Grimm LYMPH # 5.3 103/ul Critically high 1.2-3.8 [facility] Comment on above: Performed By: #### C MP, HSTROPN #### [facility] [address] [place] [address] Dr. Vito Grimm Lymphocytes/100 WBC (Bld) 38.4 % Normal 20.5-60.0 [facility] Comment on above: Performed By: #### C MP, HSTROPN #### [facility] [address] [place] [address] Dr. Vito Grimm MANUAL DIFF REQ NO Normal [facility] Comment on above: Performed By: #### C MP, HSTROPN #### [facility] [address] [place] [address] Dr. Vito Grimm MCH (RBC) [Entitic mass] 29.7 pg Normal 26.7-34.0 [facility] Comment on above: Performed By: #### C MP, HSTROPN #### [facility] [address] [place] [address] Dr. Vito Grimm MCHC (RBC) [Mass/Vol] 32.5 g/dL Normal 29.9-35.2 [facility] Comment on above: Performed By: #### C MP, HSTROPN #### [facility] [address] [place] [address] Dr. Vito Grimm MCV (RBC) [Entitic vol] 91.5 fL Normal 81.0-99.0 [facility] Comment on above: Performed By: #### C MATHIEU, HSTROPN #### [facility] [address] [place] [address] Dr. Vito Grimm MONO # 1.0 103/ul Critically high 0.3-0.8 [facility] Comment on above: Performed By: #### C MP, HSTROPN #### [facility] [address] [place] [address] Dr. Vito Grimm Monocytes/100 WBC (Bld) 7.3 % Normal 1.7-12.0 [facility] Comment on above: Performed By: #### C MP, HSTROPN #### [facility] [address] [place] [address] Dr. Vito Grimm NEUT # 7.2 103/ul Critically high 1.4-6.5 [facility] Comment on above: Performed By: #### C MP, HSTROPN #### [facility] [address] [place] [address] Dr. Vito Grimm Neutrophils/100 WBC (Bld) 52.1 % Normal 43.0-75.0 [facility] Comment on above: Performed By: #### C MATHIEU, HSTROPN #### [facility] [address] [place] [address] Dr. Vito Grimm Platelet mean volume (Bld) [Entitic vol] 9.4 fL Critically low 9.5-13.5 [facility] Comment on above: Performed By: #### C MP, HSTROPN #### [facility] [address] [place] [address] Dr. Vito Grimm PLT 297 103/ul Normal 150-450 [facility] Comment on above: Performed By: #### C MP, HSTROPN #### [facility] [address] [place] [address] Dr. Vito Grimm RBC 4.34 106/ul Normal 4.20-5.40 [facility] Comment on above: Performed By: #### C MP, HSTROPN #### [facility] [address] [place] [address] Dr. Vito Grimm WBC 13.9 103/ul Critically high 4.0-11.0 [facility] Comment on above: Performed By: #### C MATHIEU, HSTROPN #### [facility] [address] [place] [address] Dr. Vito Grimm DEPAKENE/ VALPROIC ACIDon DEPAKENE 55.9 ug/ml Normal 50.0-100.0 [facility] Comment on above: Performed By: #### V ALP #### [facility] [address] [place] [address] Dr. Vito Grimm LACTATE/LACTIC ACIDon 2022 Lactate [Moles/Vol] 3.6 mmol/L Critically high 0.4-1.9 [facility] Comment on above: Performed By: #### C MATHIEU HSTROPN #### [facility] [address] [place] [address] Dr. Vito Grimm PROF 14(COMP METB)on 023 Albumin [Mass/Vol] 3.6 g/dL Normal 3.4-5.0 [facility] Comment on above: Performed By: #### C MATHIEU HSTROPN #### [facility] [address] [place] [address] Dr. Vito Grimm Albumin/Globulin [Mass ratio] 1.1 {ratio} Normal [facility] Comment on above: Performed By: #### C MATHIEU, HSTROPN #### [facility] [address] [place] [address] Dr. Vito Grimm ALP [Catalytic activity/Vol] 57 U/L Normal 46-116 [facility] Comment on above: Performed By: #### C MATHIEU, HSTROPN #### [facility] [address] [place] [address] Dr. Vito Grimm ALT [Catalytic activity/Vol] 23 U/L Normal 14-59 [facility] Comment on above: Performed By: #### C MATHIEU, HSTROPN #### [facility] [address] [address] [address] Vito Grimm Anion gap [Moles/Vol] 17.0 mmol/L Normal Th e [facility] Comment on above: Performed By: #### C MP, HSTROPN #### [facility] [address] [address] [address] Vito Grimm AST [Catalytic activity/Vol] 16 U/L Normal 15-37 [facility] Comment on above: Performed By: #### C MP, HSTROPN #### [facility] [address] [address] [address] Vito Grimm Bilirubin [Mass/Vol] 0.1 mg/dL Critically low 0.2-1.0 [facility] Comment on above: Performed By: #### C MP, HSTROPN #### [facility] [address] [address] [address] Vito Grimm Calcium [Mass/Vol] 8.8 mg/dL Normal 8.5-10.1 [facility] Comment on above: Performed By: #### C MP, HSTROPN #### [facility] [address] [address] [address] Vito Grimm Chloride [Moles/Vol] 101 mmol/L Normal 98-107 [facility] Comment on above: Performed By: #### C MP, HSTROPN #### [facility] [address] [address] [address] Vito Grimm CO2 [Moles/Vol] 23.5 mmol/L Normal 21.0-32.0 [facility] Comment on above: Performed By: #### C MP, HSTROPN #### [facility] [address] [address] [address] Vito Grimm Creatinine [Mass/Vol] 0.72 mg/dL Normal 0.55-1.02 [facility] Comment on above: Performed By: #### C MP, HSTROPN #### [facility] [address] [address] [address] Vito Grimm EGFR-AF KAZAKH >60 Normal >=60 [facility] Comment on above: Performed By: #### C MP, HSTROPN #### [facility] [address] [address] [address] Vito Grimm EGFR-NON AF KAZAKH >60 Normal >=60 [facility] Comment on above: Performed By: #### C MP, HSTROPN #### [facility] [address] [address] [address] Vito Grimm Globulin (S) [Mass/Vol] 3.4 g/dL Normal [facility] Comment on above: Performed By: #### C MP, HSTROPN #### [facility] [address] [place] [address] Dr. Vito Grimm Glucose [Mass/Vol] 146 mg/dL Critically high 74-106 [facility] Comment on above: Performed By: #### C MP, HSTROPN #### [facility] [address] [place] [address] Dr. Vito Grimm Potassium [Moles/Vol] 4.5 mmol/L Normal 3.5-5.1 [facility] Comment on above: Performed By: #### C MP, HSTROPN #### [facility] [address] [place] [address] Dr. Vito Grimm Protein [Mass/Vol] 7.0 g/dL Normal 6.4-8.2 [facility] Comment on above: Performed By: #### C MP, HSTROPN #### [facility] [address] [address] [address] Vito Grimm Sodium [Moles/Vol] 137 mmol/L Normal 136-145 [facility] Comment on above: Performed By: #### C MP, HSTROPN #### [facility] [address] [place] [address] Dr. Vito Grimm Urea nitrogen [Mass/Vol] 11.0 mg/dL Normal 7.0-18.0 [facility] Comment on above: Performed By: #### C MP, HSTROPN #### [facility] [address] [place] [address] Dr. Vito Grimm Urea nitrogen/Creatinine [Mass ratio] 15.3 mg/mg Normal [facility] Comment on above: Performed By: #### C , HSTROPN #### [facility] [address] [address] [address] Vito Grimm Albumin [Mass/volume] in Ser um or PlasmaOrdered By: Ajit Pettit on 11-05-2022 Albumin [Mass/Vol] 4.2 g/dL 3.2-5.5 [facility] Basophils Auto (Bld) [#/Vol] Ordered By: Ajit Pettit on 11-05-2022 Basophils (Bld) [#/Vol] 0.1 10*3/uL 0.0-0.2 [facility] Basophils/100 WBC Auto (Bld) Ordered By: Ajit Pettit on 11-05-2022 Basophils/100 WBC (Bld) 0.8 % . [facility] Cholesterol [Mass/volume] in Serum or PlasmaOrdered By: Ajit Pettit on 11-05-2022 Cholesterol [Mass/Vol] 174 mg/dL 140-[address] [facility] Comment on above: Chol less than 200 m g/dl low riskChol 201-239 mg/dl borderline riskChol 240 mg/dl and greater high risk Cholesterol in LDL Calc [Mas s/Vol]Ordered By: Ajit Pettit on 11-05-2022 Cholesterol in LDL [Mass/Vol] 66 mg/dL 0-100 [facility] Comment on above: LDL ATP III CLASSIFI CATIONLDL less than 100 mg/dL OptimalLDL 100-129 mg/dL Near or above optimalLDL 130-159 mg/dL Borderline highLDL 160-189 mg/dL HighLDL greater than 189 mg/dL Very high Cholesterol in VLDL Calc [Ma ss/Vol]Ordered By: Ajit Pettit on 11-05-2022 Cholesterol in VLDL [Mass/Vol] 66 mg/dL [facility] Creatinine and Glomerular fi ltration rate.predicted panel (S/P/Bld)Ordered By: Ajit Pettit on 11-05-2022 Creatinine [Mass/Vol] 0.57 mg/dL 0.44-1.03 [facility] Eosinophils Auto (Bld) [#/Vo l]Ordered By: Ajit Pettit on 11-05-2022 Eosinophils (Bld) [#/Vol] 0.1 10*3/uL 0.0-0.45 [facility] Eosinophils/100 WBC Auto (Bl d)Ordered By: Ajit Pettit on 11-05-2022 Eosinophils/100 WBC (Bld) 0.7 % . [facility] Erythrocyte distribution wid th Auto (RBC) [Ratio]Ordered By: Ajit Pettit on 11-05-2022 Erythrocyte distribution width (RBC) [Ratio] 13.5 % 11.9-15.3 [facility] Estimated glomerular filtrat ion rate (GFR) non- AmericanOrdered By: Ajit Pettit on 11-05-2022 GFR/1.73 sq M.predicted among non-blacks MDRD (S/P/Bld) [Vol rate/Area] > 60 mL/Min [facility] Globulin Calc (S) [Mass/Vol] Ordered By: Ajit Pettit on 11-05-2022 Globulin (S) [Mass/Vol] 2.6 g/dL [facility] Glucose mean value [Mass/vol ume] in Blood Estimated from glycated hemoglobinOrdered By: Ajit Pettit on 11-05-2022 Average glucose Estimated from glycated hemoglobin (Bld) [Mass/Vol] 143 mg/dL [facility] HPV 16+18+31+33+35+39+45+51+ 52+56+58+59+68 DNA cervix probe + signal amplificOrdered By: Ajit Pettit on 11-05-2022 HPV 16+18+31+33+35+39+45+51 +52+56+58+59+68 DNA Probe+sig amp Ql (Cvx) Positive Negative [facility] Comment on above: This nucleic acid am plification test detects fourteen high-risk HPV types (16,18,31,33,35,39,45,51,52,56,58,59,66,68)without differentiation. Hematocrit Auto (Bld) [Volum e fraction]Ordered By: Ajit Pettit on 11-05-2022 Hematocrit (Bld) [Volume fraction] 40.1 % 34.0-46.4 [facility] Hemoglobin A1c percentageOrd ered By: Ajit Pettit on 11-05-2022 HbA1c (Bld) [Mass fraction] 6.6 % 4.3-5.6 [facility] Comment on above: Increased risk for d iabetes: 5.7 - 6.4diabetes: >6.4glycemic control for adults with diabetes: <7.0 Hemoglobin [Mass/volume] in BloodOrdered By: Ajit Pettit on 11-05-2022 Hemoglobin (Bld) [Mass/Vol] 13.2 g/dL 11.8-15.4 [facility] - Microbiology an d Antimicrobial susceptibilityOrdered By: Ajit Pettit on 11-05-2022 N. gonorrhoeae DNA NAYELY+probe Ql (Unsp spec) Negative Negative [facility] Comment on above: Performed at: [address] [id number] Director: Breanna Clark MD, Phone: [phone] Leukocytes [#/volume] correc cherie for nucleated erythrocytes in Blood by Automated counOrdered By: Ajit Pettit on 11-05-2022 WBC corrected for nucl RBC Auto (Bld) [#/Vol] 13.7 10*3/uL 3.8-11.6 [facility] Lymphocytes Auto (Bld) [#/Vo l]Ordered By: Ajit Pettit on 11-05-2022 Lymphocytes (Bld) [#/Vol] 5.1 10*3/uL 1.00-4.8 [facility] Lymphocytes/100 WBC Auto (Bl d)Ordered By: Ajit Pettit on 11-05-2022 Lymphocytes/100 WBC (Bld) 37.3 % . [facility] MCH Auto (RBC) [Entitic mass ]Ordered By: Ajit Pettit on 11-05-2022 MCH (RBC) [Entitic mass] 29.5 pg 24.7-34.3 [facility] MCHC Auto (RBC) [Mass/Vol]Or dered By: Ajit Pettit on 11-05-2022 MCHC (RBC) [Mass/Vol] 32.8 g/dL 32.0-35.0 [facility] MCV Auto (RBC) [Entitic vol] Ordered By: Ajit Pettit on 11-05-2022 MCV (RBC) [Entitic vol] 90.0 fL 80-100 [facility] Microcytes LM Ql (Bld)Ordere d By: Ajit Pettit on 11-05-2022 Microcytes Ql (Bld) Slight [facility] Monocytes Auto (Bld) [#/Vol] Ordered By: Ajit Pettit on 11-05-2022 Monocytes (Bld) [#/Vol] 1.1 10*3/uL 0.0-0.8 [facility] Monocytes/100 WBC Auto (Bld) Ordered By: Ajit Pettit on 11-05-2022 Monocytes/100 WBC (Bld) 8.3 % . [facility] Neutrophils Auto (Bld) [#/Vo l]Ordered By: Ajit Pettit on 11-05-2022 Neutrophils (Bld) [#/Vol] 7.3 10*3/uL 1.8-7.7 [facility] Neutrophils/100 WBC Auto (Bl d)Ordered By: Ajit Pettit on 11-05-2022 Neutrophils/100 WBC (Bld) 52.9 % . [facility] No Panel InformationOrdered By: Ajit Pettit on 11-05-2022 25-Hydroxy Vitamin D Total 28.8 ng/mL 30-100 [facility] Comment on above: VITAMIN D STATUS 25( [place])VITAMIN D RANGE (ng/mL) Deficient <20 Insufficient 20 to <30Sufficient 30 to 100Reference: Jovanni MF,Dominique NC, Gillian NINA, et al. Evaluation,treatment, and prevention of vitamin D deficiency; an Endocrine Society clinical practice guideline. JCEM. 2010; 96(7):1911-30. Luz Elena albicans (NAYELY) Negative Negative [facility] Comment on above: This test was develo ped and its performance characteristicsdetermined by [facility]. It has not been cleared orapproved by the Food and Drug Administration. Luz Elena glabrata (NAYELY) Negative Negative [facility] Comment on above: This test was develo ped and its performance characteristicsdetermined by [facility]. It has not been cleared orapproved by the Food and Drug Administration. Chlamydia trachomatis (NAYELY) (LAB) Negative Negative [facility] Estimated GFR () > 60 mL/Min [facility] Comment on above: GFR estimated refere nce range: According to KDOQI guidelines, <60 ml/min/1.73m2 is sufficient to diagnose a patient with chronic kidney disease. Human Papilloma Virus Type 16 Negative Negative [facility] Human Papilloma Virus Type 18/45 Negative Negative [facility] Comment on above: Performed at: =G - L [address] [id number] Director: Breanna Clark MD, Phone: [phone] at: WB - Locationary[address] [id number] Director: Breanna Clark MD, Phone: [phone] IG Pap w/Ct-Ng Age Based (Off-Site) Note . [facility] Comment on above: TESTS RESULT FLAG UN ITS REF RANGE LAB - Clinician Provided Cytology Information No. of containers..01 ThinPrep VialAge Lissetho TITUSOG Monisha... 30-65 01 FLAG LEGEND: L-Low Normal,H-High Normal,LL-Alert Low,HH-Alert High <-Panic Low,>-Panic High,A-Abnormal,AA-Critical Abnormal ------Performed at:01 =G [facility], [place] [address] Breanna Clark MD, Pharmacy Creatinine Clearance (Chem N/A [facility] Thin Prep Pap Comment Note . [facility] Comment on above: TESTS RESULT FLAG UN ITS REF RANGE LAB -DIAGNOSIS: 02 NEGATIVE FOR INTRAEPITHELIAL LESION OR MALIGNANCY. THIS SPECIMEN WAS RESCREENED PART OF OUR FRAME STRIPPER PROGRAM.Specimen adequacy: 02 Satisfactory for evaluation. Endocervical and/or squamous metaplastic cells (endocervical component) are present.Performed by: 02 Larry Mirza, Animal Therapist (ASCP)QC reviewed by: 02 Sammie Thomason, Supervisory Animal Therapist (ASCP). 02Note: Note 02 The Pap smear [...] Low,>-Panic High,A-Abnormal,AA-Critical Abnormal ------Performed at:02 WB [facility] [place] [address] [place] [address] Breanna Clark MD, Trichomonas vaginalis (NAYELY) Negative Negative [facility] Nucleated erythrocytes [Pres ence] in Blood by Automated countOrdered By: Ajit Pettit on 11-05-2022 Nucleated RBC Auto Ql (Bld) 0.1 /100{WBC} 0-0.5 [facility] Platelet adequacy [Presence] in Blood by Light microscopyOrdered By: Ajit Pettit on 11-05-2022 Platelets LM Ql (Bld) Normal Normal [facility] Platelet mean volume Auto (B ld) [Entitic vol]Ordered By: Ajit Pettit on 11-05-2022 Platelet mean volume (Bld) [Entitic vol] 9.1 fL 6.3-10.7 [facility] Platelet morphology finding [Identifier] in BloodOrdered By: Ajit Pettit on 11-05-2022 Platelet morphology finding Nom (Bld) N/A [facility] Platelets Auto (Bld) [#/Vol] Ordered By: Ajit Pettit on 11-05-2022 Platelets (Bld) [#/Vol] 304 10*3/uL 150-450 [facility] Platelets Large [Presence] i n Blood by Light microscopyOrdered By: Ajit Pettit on 11-05-2022 Platelets Large LM Ql (Bld) Slight [facility] Polychromasia [Presence] in Blood by Light microscopyOrdered By: Ajit Pettit on 11-05-2022 Polychromasia LM Ql (Bld) Slight [facility] Protein [Mass/volume] in Ser um or PlasmaOrdered By: Ajit Pettit on 11-05-2022 Protein [Mass/Vol] 6.8 g/dL 6.1-7.9 [facility] RBC Auto (Bld) [#/Vol]Ordere d By: Ajit Pettit on 11-05-2022 RBC (Bld) [#/Vol] 4.46 10*6/uL 3.60-5.00 [facility] RBC morphologyOrdered By: Cole Pettit on 11-05-2022 RBC morphology finding Nom (Bld) N/A [facility] Serum or plasma alanine george otransferase measurement without P-5'-P (enzymatic activiOrdered By: Ajit Pettit on 11-05-2022 ALT No additional P-5'-P [Catalytic activity/Vol] 16 U/L 10-60 [facility] Serum or plasma albumin/glob ulin mass ratioOrdered By: Ajit ePttit on 11-05-2022 Albumin/Globulin [Mass ratio] 1.6 {ratio} [facility] Serum or plasma alkaline lalo sphatase measurement (enzymatic activity/volume)Ordered By: Ajit Pettit on 11-05-2022 ALP [Catalytic activity/Vol] 52 U/L 32-92 [facility] Serum or plasma anion gap de terminationOrdered By: Ajit Pettit on 11-05-2022 Anion gap [Moles/Vol] 14.2 mmol/L 6.0-15.[address] [facility] Serum or plasma aspartate am inotransferase measurement (enzymatic activity/volume)Ordered By: Ajit Pettit on 11-05-2022 AST [Catalytic activity/Vol] 20 U/L 10-42 [facility] Serum or plasma calcium ashwini urement (mass/volume)Ordered By: Ajit Pettit on 11-05-2022 Calcium [Mass/Vol] 9.3 mg/dL 8.2-10.2 [facility] Serum or plasma chloride jett surement (moles/volume)Ordered By: Ajit Pettit on 11-05-2022 Chloride [Moles/Vol] 99 mmol/L 95-114 [facility] Serum or plasma glucose ashwini urement (mass/volume)Ordered By: Ajit Pettit on 11-05-2022 Glucose [Mass/Vol] 96 mg/dL 70-100 [facility] Comment on above: ADA recommended refe rence rangeRandom Glucose Reference Range is dependent on time and content of last meal. Glucose of more than 200 mg/dL in a nonstressed, ambulatory subject supports the diagnosis of Diabetes Mellitus. Serum or plasma high density lipoprotein (HDL) cholesterol measurementOrdered By: Ajit Pettit on 11-05-2022 Cholesterol in HDL [Mass/Vol] 42 mg/dL 35-85 [facility] Comment on above: HDL CHOL ATP-III CLA SSIFICATION Cardiovascular RiskHDL > or equal to 60 mg/dL LOWHDL < 40 mg/dL HIGH Serum or plasma potassium me asurement (moles/volume)Ordered By: Ajit Pettit on 11-05-2022 Potassium [Moles/Vol] 4.3 mmol/L 3.5-5.1 [facility] Serum or plasma sodium measu rement (moles/volume)Ordered By: Ajit Pettit on 11-05-2022 Sodium [Moles/Vol] 132 mmol/L 136-146 [facility] Serum or plasma total biliru bin measurement (mass/volume)Ordered By: Ajit Pettit on 11-05-2022 Bilirubin [Mass/Vol] 0.3 mg/dL 0.3-1.2 [facility] Serum or plasma total carbon dioxide measurement (moles/volume)Ordered By: Ajit Pettit on 11-05-2022 CO2 [Moles/Vol] 23.1 mmol/L 22.0-30.0 [facility] Serum or plasma total choles terol/high density lipoprotein (HDL) cholesterol mass ratOrdered By: Ajit Pettit on 11-05-2022 Cholesterol.total/Suellen sterol in HDL [Mass ratio] 4.1 {ratio} <5.0 [facility] Serum or plasma urea nitroge n measurement (mass/volume)Ordered By: Ajit Pettit on 11-05-2022 Urea nitrogen [Mass/Vol] 7 mg/dL 9-23 [facility] TSH DL <= 0.005 mIU/L QnOrde red By: Ajit Pettit on 11-05-2022 TSH Qn 4.07 m[IU]/L 0.45-5.33 [facility] Triglyceride [Mass/volume] i n Serum or PlasmaOrdered By: Ajit Pettit on 11-05-2022 Triglyceride [Mass/Vol] 330 mg/dL 35-149 [facility] Comment on above: TRIG ATP III CLASSIF ICATIONTRIG less than 150 mg/dL NormalTRIG 150-199 mg/dL Borderline highTRIG 200-500 mg/dL High TRIG greater than 500 mg/dL Very highStandard traceable to the Center for Disease Conrtrol and Prevention (CDC) test method. Urine culture routineOrdered By: Ajit Pettit on 11-05-2022 Bacteria identified Cx Nom (U) No Growth 2 Days [facility] Vaginal fluid Atopobium vagi rich DNA detection by probe and target amplification methoOrdered By: Ajit Pettit on 11-05-2022 A. vaginae DNA NAYELY+probe Ql (Vag fld) Low - 0 Score . [facility] Vaginal fluid Megasphaera sp ecies type 1 DNA detection by probe and target amplificatOrdered By: Ajit Pettit on 11-05-2022 Megasphaera sp type 1 DNA NAYELY+probe Ql (Vag fld) Low - 0 Score . [facility] Comment on above: Calculate total scor e by adding the 3 individual bacterialvaginosis (BV) marker scores together. Total score isinterpreted as follows:Total score 0-1: Indicates the absence of BV.Total score 2: Indeterminate for BV. Additional clinical data should be evaluated to establish a diagnosis.Total score 3-6: Indicates the presence of BV.This test was developed and its performance characteristicsdetermined by [employer]. It has not been cleared or approvedby the Food and Drug Administration. Vaginal fluid bacterial vagi nosis associated bacterium 2 DNA detection by probe and tOrdered By: Ajit Pettit on 11-05-2022 Bacterial vaginosis associated bacterium 2 DNA NAYELY+probe Ql (Vag fld) Low - 0 Score . [facility] WBC Auto (Bld) [#/Vol]Ordere d By: Ajit Pettit on 11-05-2022 WBC (Bld) [#/Vol] 13.7 10*3/uL 3.8-11.6 [facility] Ambulatory Visit Summaryon 0 11-02-2022 Ambulatory Visit Summary RACHEL MCGARRY :1980 Visit Date:11/02/2022 Ambulatory Visit Instructions Your Diagnosis Urgency of urination Urethral stricture Feeling of incomplete bladder emptying Tests Performed Urnls Dip Stick Auto w/o Microscopy POC 00651 Your Care Team Attending Physician - JORDANA BALDERAS, Joshua Dempsey Primary Care Physician - AJIT PETTIT CNP [...] BALDERAS, Joshua Dempsey Where: [facility] Patient Educationon 11-02-19 23 Patient Education Urology [...] keep your urine pale yellow. ? Take vqmc-qsq-llcwpld or prescription medicines. ? Eat foods that are high in fiber, such as beans, whole grains, and fresh fruits and vegetables. ? Limit foods that are high in fat and processed sugars, such as fried or sweet foods. General instructions ? Take gqoe-vqa-vuachao and prescription medicines only as told by [...] muscles that help control urination. ? Take sdbg-djb-ssbqvzs and prescription medicines only as told by [...] 07/17/2010 Document Revised: 03/30/2019 Document Reviewed: 03/30/2019 [employer] Interactive Patient Education ? 2019 [employer] [facility] Urology Office/Clinic Noteon 11-02-2022 Urology Office/Clinic Note Chief Complaint Urinary problmes HPI Staff This is a 42 year old female here due to having problems with urination. Previous DX: feeling of incomplete bladder emptying, frequency and urgency. S/P Cysto done 08/24/22. Pt. states she has seen a [employer] OFF[employer] since last visit and she has cyst [...] Contact Information JORDANA BALDERAS, Joshua P, URL [address] [place] [address] [place], [place] [id number] Business (1) Additional Instructions: 6 month follow [...] mg oral t (more content not included)... [facility] Comment on above: Result Comment: Elec tronically Signed By: Joshua PRESTON MD\.br\Date and Time Signed: 11/02/22 11:43 EST\.br\Electronically Co-Signed By: Bailey Pacheco\.br\Date and Time Co-Signed: 11/02/22 11:30 EST Provider Letteron 09-29-2022 Provider Letter (Inserted Image. Bre ble to display) September 29, 2022 RACHEL MCGARRY [address] [facility] [address] [place] [address] RACHEL MCGARRY 1980 Dear Rachel, You missed [...] Sincerely, [facility] [address] [place] [address] [facility] Coding Summary.on 08-26-2022 Coding Summary. CD:[id number] Gh0bWw+ PGhlYWQ+VE6IIIScT15aeNLgeZ4 ZH8xWAM2XDKAMHHRYDE3VMM3lgT I3DEmdZ4LqstDn ZbouyPWwEB93GAb7VFP6bBuzFMa gfF3apTJtX8o2UsDgXQ24yX77WN reCSZpYjS6IlEjhckofHOw K5vgXaLpjNLpEqj+PHRhYmxlIHd cGLQxDOxyUOSrTgWhtQcsBR7hZc 9yZGVyLWNvbGxhcHNlOiBj q6qwYXBhZPvaRN8dqRdhT2BmqPU 5QOHcd5x7Uk72yAR+XONfUPF4bW lxFBmld141NsAzu4yoEUM8 tGGrPZguWWC2N72io0Z0OUBiXKZ mEIQ8uGB1qM3veOvyitwtW4HhuX RiXeJ4ZOK1sSMrzS4xuRvt yfowtL7dDby+I18DOK7HEIMPKP5 TSlo7O9UyBsmluAC+FS32WXYnIE 53tPXheTLko9vegHh2HwYe JGAlSLU1fUxtUCvej0KcQYUvD14 byXGcn4D9MPTpmBymdSVxEzIdqG F1jT3bPKwupkjce7tujgpf Kqqnn8enkd98fN88J75uIKaeRJX cWRZ7HSCpPWFhqFuhne2juC5zXj 8+OYmbd0pbo2bboQi2CmLc INZjgfOxlVkiLDS2z6OgPv67A3H quOyhb2XpAse1gw28jISue9I3dK X6EFzlGVPucH0gSActRpT7 IFJpUcRosE18gOKqKCksCp8xfCt yxOnnJI1aPGJiivkaZZCgeL5hRQ DjrVKakDqtUQ7zFXTalpew a608XdNfAYO7ZMLfoUPzF1ZzkO8 lYlZaYJBlIZZpI6YzkUFpMDfvW8 96OSznVgA8GZCywdHrL6Gq CMLfbQmdAvK2e3U0Ub4Hi1Nsork qOQW6ELydLXEhClYzTkWqMeU9U9 NyHfd9HLEtkHbhUC1xW1Ms YNWhjzemacaudSQ0MAIyPKMuqU6 3qCDrRUxaUn3uh0L0b249XOCjVN SiaM92Xj3vqJlkCJEpkWHE lX9uzcgwl6jnxhqnNbAmJPApPMm 4CUf6KMAkcKclAxKiLRT7YnB4PS H2iNRgcN5daUhkifefyZ0a Oyc+N39koU7rLLD7NRU9dalaIDX jxaCoLJ91UF00J5OwTasxxOHbqP U+AENtrsPcrJheOU5qTpSz y8zua5EsJDvdL6WqGZCwMAajJae 6MXGwXIC4sLA9kN5tMODbOFbvo4 B9hYH3L8YfkuYjpb8bk0om FKLrBGtzI25muNLom6S4VPDaiPP 9JSThvHcuOqCqoU89Elh+PGNvbG jqt2UhSoogc9ajr4uvrCy2 QwSfHQNddsPwkDjwAHG6f0ZpOx9 9K76xECywMFVxKXQeZQRwROBvwC dqlz2tuC1sFx5+PGNvbCB3 aTQ1jB8qDRNeIbT7OHpvD696IyM wvNZgVxthm7sun7jsyAi6XyJoTL CupfSzxLdmUMM8e9VpPy62 R73sJUosTAExYEAzDMFkVDCdcCj uqp9zcS2pHs5+QD6ui9dncv75fO 48dHI+RLRsVCI7vBokFVpx FCAmwS8uQBckDdP8RTRwNnFmcO5 2lIZpGYfrJa7gqKcfbUdbFU5uUH Erxoaop767CrWvo5wfKSCu zJHyOGkeESP1D10fv3Z8QJXnABZ sWTR7xIF4lF5vcKolnymrsRPjfO queuNnjLvkGTrmCUkdZ916 IHRvcDsnPlBhdGllbnQgTmFtZTo 0T8CxOli6JLRsmSuwFG6zdBWlBV keUi2urYuacXjvOS8dGBYb rtqxj960QlLkn7afDWBtyAHkSIn aFMY8B15qs1A9KBFzVAPxLVA7qL M8mG6olVxwtziukKHinJua tzCdrOllJPseJNncW005YRRvlLq vAfEuodOrXMZggYD4BC42BI55tZ Crb1P7dKY9J7OvCVEeimgb olreaOA8BCXaQAGzsI50Cb0eyQq jWn8lLJWfUQN9BYGggVJwB4KceT 8tAiOlARUsFRNzT4VubGLl RAwbN281RCvjJwN2UINasgZxL1G oCNJlwAwrPvA9r3Y4Hk5IV3W2RQ 76HE39wMEyc5Y3fQF5V6So ITFitqqzpoadhRR9MEXsWPTypI1 7Re1kiCpjPc8yBBTfEJA8DRZdvB WiB2RjwQ9iHmXfZCPiRMGp E4MkbKPnQXopA707QNnaOcH0EXF nucUtK6ClVKFzlGkqDxM3b3V1Na 4ACIm6WJ47UL98pMGkr5S4 pMK1G6UvJUGygzprcpmnuRA9LQX bHVGfmX65Lf4tcAxeAq1kGHKiOK Y2JPNdeSIkE5WoqX3pOvHh DWAnDGJgM8XuqZKuKDkjZ705QKv sHxV6DZAjhvPkW3ZkJIBgvZcnVv L0a7E6Oh1RDMEoHA79QQT6 pCK8EV05BH23Z7RzCafhgIHxiRJ +PHRhYmxlIHdpZHRoPScxMDAlJy PvlIhwCH9lTd8aDSVmADWa eVyuwKItCnOgu8hoUEVsRBrdGM4 vyVthV9VelHM0LJFjl8i9Kb88Y3 3dA0EbuPU+OBCiaYO7iTX8 nS6rWeNdTuV7YQkeA202YkZrvZX tOqasq3iwz1lnwSc6AhX7VCUskv EobRplLQH9w3XtNx17S88n IHdpZHRoPSIxNSUiIHZhbGlnbj0 rpB1yTi7+UYXxxYY8fQM6zQ0rXu GyLlS5USxqU577BdUztXUi Kkbed4jcg3uefOq6IrZjIXBcfrG muRhlPVR4e6ZyBt30N5RbyJoxa5 WbUgg3au81qUYjw9M8xUM0 X3RfZBJcfannxANqyMeaXZ1kMAL oadjeAQOzyM7oGPEeX1g5WhAgSl Y5JUivG6WesuQ3EIJcqFEd WOnhUAI7R57ly8P0BLPwFGEwIAD 2vQM7pI3wnYuuinqxqZHcuUlvme WnaBqgEQwoNFcjB461JHYm oQhhVLEicR2qNZNmbVSefUsqHN7 tNRMtvgzlKe5DTMXWKMIVBI0XJU LOBY36RP25dHEql2M3pZY2 M1ShVXFsnruxzaqgwXT4BQBdPTW bhW55bLWlBCsiRf8fs8I3a285HU EzQJKsyV75Fn8twXeeUOWl cNEBlT4bbkmdf0icqbimFzAgLWV hFLd1ZFm7SOBixTtnLwPbDOC2Sj X9PPI1eEEllV0tsDwkytsu tQ3wMeb+FUKvURVsXLd2XHfztWA +LVJqZLA1dYefCXxzZUPwlI1wJW QdS9x2ClYyUpF2IMkgZ2Nd CWVubbohVc30xW3aNeXlQvY5IZf wN2WyacS5MRNwbPUtOXfgCGQ3D5 7gx0X1CDWeNWEiMMX4pMT3 pR9gvSnlflfnaAMaqHmxmuSxhLe hDTmpJOjmM926SULkrGbiWoCfDP jfJQLsAS11YL91xOLzm1D2 fIG2N5PzIWAlrknexmvdoBR3RNK iWMRvzP64iBXsWTeaLh9bp9Y6l9 49IGGaMHLssV05Aw8dcDtt EWHxxLXQyZ5vfcmwh2nlieqhTtL tXHAjUEy1IAu6DWVgjNltGiYdAA W8QgX6WXT7wSClvS2scVbp rwrfyM8qTzw+CcEpLWeaNV02LO8 3jWHln6P0tLC1P2QvYYImnxgkjc vlpNS7MLUnSMOzvM52yZHs ZYfnGl8ka6D1w045FIRnOXQlhX8 6Kl7oqQpfPGCljHLMwG1vslxxu0 kuntphIcBjFXDqACf2UId0 TAQqnBapNrVoKDF1ByQ8OLX5aGG wxI4waLhoezlyyE1vVxi+T3V0cG L3aWKfhMtbmAO+EQ56lo52 S0ReJjvoXfa9DYTiOXE7nSF1sS4 oGQDhOJbif5G8xGS7K0YhohMrsh 7zr3zkAZOiYHicJ62udKNw f1U6HXQofDK4IHQzhFqjMeSaoY9 3Oyc+OUIwcWliu4BvAqqcd0ytt4 hkiRt8LnJoBVZzbvOdfDhi QAB3r4TcQs18D70wPLkpXFHnFLU eTPFwNDFalSgpql2xqD0iMk2+PG FhcJU3yKX2cQ4pHkZcBvF2 TKypN475XlYppLPySrfhq2kkd2v lbJc9YsEyORIeyhIbrKdgTWO3r3 AsVh23V0ZpbQzrt3AqLxa9 wp52ePMir0N7oEV5E2MoHMRrrzv jrOAavHvrWB6vSRCrfgdpJOJebF 6xLLToY5h7NgHqPfR8WCzt W0WvjuQ4IDNxzEOfZHMroGSIfO3 vlvard1jqbcnnMxFuVDStHCi4DP e6RETgsLwfDpWpWLZ0VfB7 GTL2kYRxjN7joQxxhojvgF8fUcp +UIj4h2akxDZjLS3cmWE9RG91AA 58fRCrl3Z9vYK5E0PvDSZu wuvdsichpBO0UGBpEFVttH10Pc4 jbTcnQg9oFSPeFGZ2LKZygDUcR5 DtgI3rNrUdKMArCIDyK8Jg zRCgKFnfA560YBulQgG1NEJohkL pN4NxYTVomLhzVvA2g3L9Zw8HBZ 64YB65QX02uDTfy4P9nVG1 P9BrBDSfmayjnqfqgRO1BJCoAVR qgZ09Zn3poTmcBy9hGTVmYZU2VC FpnHVaK0HgdN7dTeBkQPGq RGZqW8QcgVYqTGylI355OHmfIsZ 1WSDheeUfD6IsIPWhkNtxLrC6a1 A8Hs4SRb53MH86WG91zKLm o9G4sDC8K7PsJXFqeksrtghrwCB 1UUAxIVOnvZ52Cu9gmXlzIa5fMA PpIDL3PQIlkYAyB7NckS8r NpKnCWMoFRFiX6MohLAeOKwsJ89 3LNsxKeM0CUFzcwXzO8PqFGXrsW rnCtA0t7C0Rg8UTFusnmh4 L3VuQlzfaFE+JR56FHOnWX73rMH neQAis6cciNb4EkUrLZIrDIP7hP rdYWqms8RkBOOwB45rjTVw c2U6 (more content not included)... [facility] IntraOperative Documentson 10-25-2021 IntraOperative Documents [id number]#[id number]:[address] [facility] Consent for Procedure/Surger yon 08-24-2022 Consent for Procedure/Surgery [id number]#1.00CD:[address] [facility] Consent for Treatmenton 08-05 Consent for Treatment [id number]#1.00CD:[address] [facility] Inpatient Patient Summaryon 08-24-2022 Inpatient Patient Summary [place] [id number] Clinical Summary Person Information Name: RACHEL MCGARRY Age: 42 Years : 1980 Sex: Female PCP: AJIT PETTIT CNP Marital Status: Race: White Ethnicity: Non- or Language: Danish Visit Id: Visit Reason: FEELING OF INCOMPLETE BLADDER EMPTY URINARY FREQUENCY Speciality: Acuity: Enc Type: Outpatient Med Service: Surgery Arrival: 08/24/2022 13:16:48 Discharge: Dispo Type: Address: [address] [place] [address] [address] [facility] [id number] Provider Notes: Diagnosis: Problems Active Urgency of [...] up: With: Address: When: Joshua PRESTON [address], [address], [place] [id number] [facility] (1) Within 6 weeks Comments: Call for followup appointment. Monitor the urinary low after the dilation today. Have a great Thanksgiving. Patient Education Information: EU - Cystoscopy with Urethral Dilation Discharge Instructions (Custom) [facility] IntraOperative Documentson 1 10-24-2021 IntraOperative Documents [id number]#1.00CD:[address] [facility] IntraOperative Documents [id number]#[id number]:[address] [facility] Main OR Intraoperative Recor don 08-24-2022 Main OR Intraoperative Record IntraOp Document Type FTURO Summary Primary Physician: Joshua PRESTON MD Finalized Date/Time: 08/24/22 15:52:21 Pt. Name: ZEFERINORACHEL CHAPPELL/Sex: 1980 Female Med Rec #: [id number] Physician: Joshua PRESTON MD Financial #: [id number] Pt. Type: O Room/Bed: / Admit/Disch: 08/24/22 13:16:48 - Institution: Case Times FTURO Entry 1 Patient Times In Room 08/24/22 15:42:00 Out Room 08/24/22 15:52:00 Procedure Times Start 08/24/22 15:45:00 Stop 08/24/22 15:48:00 Anesthesia Times Last Modified By: Kathy Lund RN 08/24/22 15:52:14 Case Attendance FTURO Entry 1 Entry 2 Entry 3 Case Attendee Joshua PRESTON MD RECONSTRUCTIVE SURGEON, Kathy Long RN Role Performed Surgeon - Primary Scrub - Primary It Network Architect - Primary Time In 08/24/22 15:42:00 08/24/22 15:42:00 08/24/22 15:42:00 Time Out 08/24/22 15:52:00 08/24/22 15:52:00 08/24/22 15:52:00 Procedure CYSTOSCOPY LOCAL WITH CYSTOSCOPY LOCAL WITH CYSTOSCOPY LOCAL WITH URETHRAL DILATION(.) URETHRAL DILATION(.) URETHRAL DILATION(.) Comments NICOL WALKER STUDENT OBSERVING Last Modified By: Kevon ANDREWS, Kathy Lund RN, Kathy Richmond RN 08/24/22 15:52:16 08/24/22 [...] Verified Availability Equipment, Medication Time Out Joshua PRESTON MD, Verified (If Participants Velma Mcgill CST, [...] By: Kathy Lund RN 08/24/22 15:[address] [facility] Main OR Preoperative Recordo n 08-24-2022 Main OR Preoperative Record Holding Area Document Type FTURO Summary Primary Physician: Joshua PRESTON MD Finalized Date/Time: 08/24/22 14:57:36 Pt. Name: ZEFERINORACHEL./Sex: 1980 Female Med Rec #: [id number] Physician: Joshua PRESTON MD Financial #: [id number] Pt. Type: O Room/Bed: / Admit/Disch: 08/24/22 [...] No Pain Comment: na Skin Integrity Intact, Walls, Warm, & Dry Vitals - EU Blood Pressure 145/96 Pulse 76 bpm Respirations 18 br/min SPO2 98 % Last Modified By: Natividad Green LPN 08/24/22 14:57:31 General Comments: Temp:35.8 Finalized By: Natividad Green LPN Document Signatures Signed By: Natividad Green LPN 08/24/22 14:[address] [facility] Operative Reporton Operative Report Patient: TARIK MCGARRY Age: 42 [...] urine. The Urethra was dilated to: 30 Micronesian w/ sounds. Devices Implanted: None. Removal: Cystoscope is removed, The patient tolerated it well. Postoperative Information Discharge: Patient is discharged home with antibiotic coverage, Follow up arranged, F/U six weeks. . [facility] Comment on above: Result Comment: Elec tronically Signed By: Joshua PRESTON MD\.br\Date and Time Signed: 08/24/22 15:53 EST Outpatient Surgery Discharge Instructionon 08-24-2022 Outpatient Surgery Discharge Instruction [id number]#[id number]:[address] [facility] Outpatient Surgery Discharge Instruction [address] [address] Patient Discharge Instructions PERSON INFORMATION Name: RACHEL [...] 911 Follow up: With: Address: When: Joshua PRESTON [address] [place] [address], [address], [address] [address] Business (1) Within 6 weeks Comments: Call [...] to serve you. Thank you for choosing [facility] RAD - CT Reporton 08-06-2022 RAD - CT Report [id number]#1.00CD:[address] [facility] RAD - Ultrasound Reporton RAD - Ultrasound Report [id number]#1.00CD:[address] [facility] Physician Referralon 022 Physician Referral [id number]#1.00CD:[address] [facility] Patient Educationon 07-31-20 22 Patient Education [...] including vitamins, herbs, eye drops, creams, and ougj-jkd-cxnhpui medicines. ? Whether you are or may [...] system diseases. (more content not included)... [facility] Urology Office/Clinic Noteon 07-31-2022 Urology Office/Clinic [...] Information JORDANA BALDERAS, Joshua Dempsey, URL [address] [address]- Additional Instructions: Cysto/ Urodynamics Patient Education Urodynamic [...] No qual (more content not included)... [facility] Comment on above: Result Comment: Elec tronically Signed By: JORDANA BALDERAS, Joshua Dempsey\.br\Date and Time Signed: 07/31/22 12:15 EDT\.br\Electronically Co-Signed By: Viji Johnson\.br\Date and Time Co-Signed: 07/31/22 12:12 EDT Basophils Auto (Bld) [#/Vol] Ordered By: Ajit Pettit on 07-08-2022 Basophils (Bld) [#/Vol] 0.1 10*3/uL 0.0-0.2 [facility] Basophils/100 WBC Auto (Bld) Ordered By: Ajit Pettit on 07-08-2022 Basophils/100 WBC (Bld) 0.4 % . [facility] Blood hemoglobin measurement (mass/volume)Ordered By: Ajit Pettit on 07-08-2022 Hemoglobin (Bld) [Mass/Vol] 12.7 g/dL 11.8-15.4 [facility] Blood leukocytes automated c ount (number/volume)Ordered By: Ajit Pettit on 07-08-2022 WBC (Bld) [#/Vol] 14.3 10*3/uL 4.5-11.0 [facility] Body fluid albumin measureme nt (mass/volume)Ordered By: Ajit Pettit on 07-08-2022 Albumin (Body fld) [Mass/Vol] 3.6 g/dL 3.2-5.5 [facility] Creatinine and Glomerular fi ltration rate.predicted panel (S/P/Bld)Ordered By: Ajit Pettit on 07-08-2022 Creatinine [Mass/Vol] 0.66 mg/dL 0.44-1.03 [facility] Eosinophils Auto (Bld) [#/Vo l]Ordered By: Ajit Pettit on 07-08-2022 Eosinophils (Bld) [#/Vol] 0.2 10*3/uL 0.0-0.45 [facility] Eosinophils/100 WBC Auto (Bl d)Ordered By: Ajit Pettit on 07-08-2022 Eosinophils/100 WBC (Bld) 1.2 % . [facility] Erythrocyte distribution wid th Auto (RBC) [Ratio]Ordered By: Ajit Pettit on 07-08-2022 Erythrocyte distribution width (RBC) [Ratio] 13.5 % 11.9-15.3 [facility] Estimated glomerular filtrat ion rate (GFR) non- AmericanOrdered By: Ajit Pettit on 07-08-2022 GFR/1.73 sq M.predicted among non-blacks MDRD (S/P/Bld) [Vol rate/Area] > 60 mL/Min [facility] Globulin Calc (S) [Mass/Vol] Ordered By: Ajit Pettit on 07-08-2022 Globulin (S) [Mass/Vol] 2.4 g/dL [facility] Hematocrit Auto (Bld) [Volum e fraction]Ordered By: Ajit Pettit on 07-08-2022 Hematocrit (Bld) [Volume fraction] 38.9 % 34.0-46.4 [facility] Laboratory - Hematology and Cell countsOrdered By: Ajit Pettit on 07-08-2022 Nucleated RBC/100 WBC (Bld) [Ratio] 0.0 % 0-0.5 [facility] Lymphocytes Auto (Bld) [#/Vo l]Ordered By: Ajit Pettit on 07-08-2022 Lymphocytes (Bld) [#/Vol] 4.5 10*3/uL 1.00-4.8 [facility] Lymphocytes/100 WBC Auto (Bl d)Ordered By: Ajit Pettit on 07-08-2022 Lymphocytes/100 WBC (Bld) 31.2 % . [facility] MCH Auto (RBC) [Entitic mass ]Ordered By: Ajit Pettit on 07-08-2022 MCH (RBC) [Entitic mass] 29.7 pg 24.7-34.3 [facility] MCHC Auto (RBC) [Mass/Vol]Or dered By: Ajit Pettit on 07-08-2022 MCHC (RBC) [Mass/Vol] 32.7 g/dL 32.0-35.0 [facility] MCV Auto (RBC) [Entitic vol] Ordered By: Ajit Pettit on 07-08-2022 MCV (RBC) [Entitic vol] 90.8 fL 80-100 [facility] Monocytes Auto (Bld) [#/Vol] Ordered By: Ajit Pettit on 07-08-2022 Monocytes (Bld) [#/Vol] 1.1 10*3/uL 0.0-0.8 [facility] Monocytes/100 WBC Auto (Bld) Ordered By: Ajit Pettit on 07-08-2022 Monocytes/100 WBC (Bld) 7.8 % . [facility] Neutrophils Auto (Bld) [#/Vo l]Ordered By: Ajit Pettit on 07-08-2022 Neutrophils (Bld) [#/Vol] 8.5 10*3/uL 1.8-7.7 [facility] Neutrophils/100 WBC Auto (Bl d)Ordered By: Ajit Pettit on 07-08-2022 Neutrophils/100 WBC (Bld) 59.4 % . [facility] No Panel InformationOrdered By: Ajit Pettit on 07-08-2022 Estimated GFR () > 60 mL/Min [facility] Comment on above: GFR estimated refere nce range: According to KDOQI guidelines, <60 ml/min/1.73m2 is sufficient to diagnose a patient with chronic kidney disease. Pharmacy Creatinine Clearance (Chem N/A [facility] Platelet mean volume Auto (B ld) [Entitic vol]Ordered By: Ajit Pettit on 07-08-2022 Platelet mean volume (Bld) [Entitic vol] 8.3 fL 6.3-10.7 [facility] Platelets Auto (Bld) [#/Vol] Ordered By: Ajit Pettit on 07-08-2022 Platelets (Bld) [#/Vol] 332 10*3/uL 150-450 [facility] Protein [Mass/volume] in Ser um or PlasmaOrdered By: Ajit Pettit on 07-08-2022 Protein [Mass/Vol] 6.0 g/dL 6.1-7.9 [facility] RBC Auto (Bld) [#/Vol]Ordere d By: Ajit Pettit on 07-08-2022 RBC (Bld) [#/Vol] 4.29 10*6/uL 3.60-5.00 [facility] Serum or plasma alanine george otransferase measurement without P-5'-P (enzymatic activiOrdered By: Ajit Pettit on 07-08-2022 ALT No additional P-5'-P [Catalytic activity/Vol] 26 U/L 1060 [facility] Serum or plasma albumin/glob ulin mass ratioOrdered By: Ajit Pettit on 07-08-2022 Albumin/Globulin [Mass ratio] 1.5 {ratio} [facility] Serum or plasma alkaline lalo sphatase measurement (enzymatic activity/volume)Ordered By: Ajit Pettit on 07-08-2022 ALP [Catalytic activity/Vol] 46 U/L 32-92 [facility] Serum or plasma anion gap de terminationOrdered By: Ajit Pettit on 07-08-2022 Anion gap [Moles/Vol] 15.1 mmol/L 6.0-15.[address] [facility] Serum or plasma aspartate am inotransferase measurement (enzymatic activity/volume)Ordered By: Ajit Pettit on 07-08-2022 AST [Catalytic activity/Vol] 31 U/L 10-42 [facility] Serum or plasma calcium ashwini urement (mass/volume)Ordered By: Ajit Pettit on 07-08-2022 Calcium [Mass/Vol] 9.3 mg/dL 8.2-10.2 [facility] Serum or plasma chloride jett surement (moles/volume)Ordered By: Ajit Pettit on 07-08-2022 Chloride [Moles/Vol] 101 mmol/L 95-114 [facility] Serum or plasma glucose ashwini urement (mass/volume)Ordered By: Ajit Pettit on 07-08-2022 Glucose [Mass/Vol] 129 mg/dL 70-100 [facility] Comment on above: ADA recommended refe rence rangeRandom Glucose Reference Range is dependent on time and content of last meal. Glucose of more than 200 mg/dL in a nonstressed, ambulatory subject supports the diagnosis of Diabetes Mellitus. Serum or plasma potassium me asurement (moles/volume)Ordered By: Ajit Pettit on 07-08-2022 Potassium [Moles/Vol] 5.0 mmol/L 3.5-5.1 [facility] Serum or plasma sodium measu rement (moles/volume)Ordered By: Ajit Pettit on 07-08-2022 Sodium [Moles/Vol] 135 mmol/L 136-146 [facility] Serum or plasma total biliru bin measurement (mass/volume)Ordered By: Ajit Pettit on 07-08-2022 Bilirubin [Mass/Vol] 0.5 mg/dL 0.3-1.2 [facility] Serum or plasma total carbon dioxide measurement (moles/volume)Ordered By: Ajit Pettit on 07-08-2022 CO2 [Moles/Vol] 23.9 mmol/L 22.0-30.0 [facility] Serum or plasma urea nitroge n measurement (mass/volume)Ordered By: Ajit Pettit on 07-08-2022 Urea nitrogen [Mass/Vol] 12 mg/dL 9-23 [facility] TSH DL <= 0.005 mIU/L QnOrde red By: Ajit Pettit on 06-24-2022 TSH Qn 4.14 m[IU]/L 0.45-5.33 [facility] Basophils Auto (Bld) [#/Vol] Ordered By: Ajit Pettit on 06-02-2022 Basophils (Bld) [#/Vol] 0.1 10*3/uL 0.0-0.2 [facility] Basophils/100 WBC Auto (Bld) Ordered By: Ajit Pettit on 06-02-2022 Basophils/100 WBC (Bld) 0.9 % . [facility] Blood hemoglobin measurement (mass/volume)Ordered By: Ajit Pettit on 06-02-2022 Hemoglobin (Bld) [Mass/Vol] 12.9 g/dL 11.8-15.4 [facility] Blood leukocytes automated c ount (number/volume)Ordered By: Ajit Pettit on 06-02-2022 WBC (Bld) [#/Vol] 16.8 10*3/uL 4.5-11.0 [facility] Body fluid albumin measureme nt (mass/volume)Ordered By: Ajit Pettit on 06-02-2022 Albumin (Body fld) [Mass/Vol] 3.5 g/dL 3.2-5.5 [facility] Creatinine and Glomerular fi ltration rate.predicted panel (S/P/Bld)Ordered By: Ajit Pettit on 06-02-2022 Creatinine [Mass/Vol] 0.58 mg/dL 0.44-1.03 [facility] Eosinophils Auto (Bld) [#/Vo l]Ordered By: Ajit Pettit on 06-02-2022 Eosinophils (Bld) [#/Vol] 0.1 10*3/uL 0.0-0.45 [facility] Eosinophils/100 WBC Auto (Bl d)Ordered By: Ajit Pettit on 06-02-2022 Eosinophils/100 WBC (Bld) 0.7 % . [facility] Erythrocyte distribution wid th Auto (RBC) [Ratio]Ordered By: Ajit Pettit on 06-02-2022 Erythrocyte distribution width (RBC) [Ratio] 13.3 % 11.9-15.3 [facility] Estimated glomerular filtrat ion rate (GFR) non- AmericanOrdered By: Ajit Pettit on 06-02-2022 GFR/1.73 sq M.predicted among non-blacks MDRD (S/P/Bld) [Vol rate/Area] > 60 mL/Min [facility] Globulin Calc (S) [Mass/Vol] Ordered By: Ajit Pettit on 06-02-2022 Globulin (S) [Mass/Vol] 2.5 g/dL [facility] Hematocrit Auto (Bld) [Volum e fraction]Ordered By: Ajit Pettit on 06-02-2022 Hematocrit (Bld) [Volume fraction] 38.8 % 34.0-46.4 [facility] Laboratory - Hematology and Cell countsOrdered By: Ajit Pettit on 06-02-2022 Nucleated RBC/100 WBC (Bld) [Ratio] 0.0 % 0-0.5 [facility] Lymphocytes Auto (Bld) [#/Vo l]Ordered By: Ajit Polosic on 06-02-2022 Lymphocytes (Bld) [#/Vol] 3.4 10*3/uL 1.00-4.8 [facility] Lymphocytes/100 WBC Auto (Bl d)Ordered By: Ajit Polosic on 06-02-2022 Lymphocytes/100 WBC (Bld) 20.3 % . [facility] MCH Auto (RBC) [Entitic mass ]Ordered By: Ajit Pettit on 06-02-2022 MCH (RBC) [Entitic mass] 30.3 pg 24.7-34.3 [facility] MCHC Auto (RBC) [Mass/Vol]Or dered By: Ajit Pettit on 06-02-2022 MCHC (RBC) [Mass/Vol] 33.2 g/dL 32.0-35.0 [facility] MCV Auto (RBC) [Entitic vol] Ordered By: Ajit Millanc on 06-02-2022 MCV (RBC) [Entitic vol] 91.1 fL 80-100 [facility] Monocytes Auto (Bld) [#/Vol] Ordered By: Ajit Millanc on 06-02-2022 Monocytes (Bld) [#/Vol] 1.2 10*3/uL 0.0-0.8 [facility] Monocytes/100 WBC Auto (Bld) Ordered By: Ajit Spasic on 06-02-2022 Monocytes/100 WBC (Bld) 7.2 % . [facility] Neutrophils Auto (Bld) [#/Vo l]Ordered By: Ajit Polosic on 06-02-2022 Neutrophils (Bld) [#/Vol] 11.9 10*3/uL 1.8-7.7 [facility] Neutrophils/100 WBC Auto (Bl d)Ordered By: Ajit Pettit on 06-02-2022 Neutrophils/100 WBC (Bld) 70.9 % . [facility] No Panel InformationOrdered By: Ajit Pettit on 06-02-2022 Estimated GFR () > 60 mL/Min [facility] Comment on above: GFR estimated refere nce range: According to KDOQI guidelines, <60 ml/min/1.73m2 is sufficient to diagnose a patient with chronic kidney disease. Pharmacy Creatinine Clearance (Chem N/A [facility] Platelet mean volume Auto (B ld) [Entitic vol]Ordered By: Ajit Pettit on 06-02-2022 Platelet mean volume (Bld) [Entitic vol] 9.2 fL 6.3-10.7 [facility] Platelets Auto (Bld) [#/Vol] Ordered By: Ajit Pettit on 06-02-2022 Platelets (Bld) [#/Vol] 313 10*3/uL 150-450 [facility] Protein [Mass/volume] in Ser um or PlasmaOrdered By: Ajit Pettit on 06-02-2022 Protein [Mass/Vol] 6.0 g/dL 6.1-7.9 [facility] RBC Auto (Bld) [#/Vol]Ordere d By: Ajit Pettit on 06-02-2022 RBC (Bld) [#/Vol] 4.26 10*6/uL 3.60-5.00 [facility] Serum or plasma alanine george otransferase measurement without P-5'-P (enzymatic activiOrdered By: Ajit Pettit on 06-02-2022 ALT No additional P-5'-P [Catalytic activity/Vol] 20 U/L 10-60 [facility] Serum or plasma albumin/glob ulin mass ratioOrdered By: Ajit Pettit on 06-02-2022 Albumin/Globulin [Mass ratio] 1.4 {ratio} [facility] Serum or plasma alkaline lalo sphatase measurement (enzymatic activity/volume)Ordered By: Ajit Pettit on 06-02-2022 ALP [Catalytic activity/Vol] 48 U/L 32-92 [facility] Serum or plasma anion gap de terminationOrdered By: Ajit Pettit on 06-02-2022 Anion gap [Moles/Vol] 15.8 mmol/L 6.0-15.[address] [facility] Serum or plasma aspartate am inotransferase measurement (enzymatic activity/volume)Ordered By: Ajit Pettit on 06-02-2022 AST [Catalytic activity/Vol] 21 U/L 10-42 [facility] Serum or plasma calcium ashwini urement (mass/volume)Ordered By: Ajit Pettit on 06-02-2022 Calcium [Mass/Vol] 9.1 mg/dL 8.2-10.2 [facility] Serum or plasma chloride jett surement (moles/volume)Ordered By: Ajit Pettit on 06-02-2022 Chloride [Moles/Vol] 100 mmol/L 95-114 [facility] Serum or plasma glucose ashwini urement (mass/volume)Ordered By: Ajit Pettit on 06-02-2022 Glucose [Mass/Vol] 141 mg/dL 70-100 [facility] Comment on above: ADA recommended refe [...] on 06-02-2022 Potassium [Moles/Vol] 4.3 mmol/L 3.5-5.1 [facility] Serum or plasma sodium measu rement (moles/volume)Ordered By: Ajit Pettit on 06-02-2022 Sodium [Moles/Vol] 132 mmol/L 136-146 [facility] Serum or plasma total biliru bin measurement (mass/volume)Ordered By: Ajit Pettit on 06-02-2022 Bilirubin [Mass/Vol] 0.5 mg/dL 0.3-1.2 [facility] Serum or plasma total carbon dioxide measurement (moles/volume)Ordered By: Ajit Pettit on 06-02-2022 CO2 [Moles/Vol] 20.5 mmol/L 22.0-30.0 [facility] Serum or plasma urea nitroge n measurement (mass/volume)Ordered By: Ajit Pettit on 06-02-2022 Urea nitrogen [Mass/Vol] 12 mg/dL 9-23 [facility] TSH DL <= 0.005 mIU/L QnOrde red By: Ajit Pettit on 06-02-2022 TSH Qn 2.06 m[IU]/L 0.45-5.33 [facility] Basophils Auto (Bld) [#/Vol] Ordered By: Jasmin Velázquez on 05-27-2022 Basophils (Bld) [#/Vol] 0.1 10*3/uL 0.0-0.2 [facility] Basophils/100 WBC Auto (Bld) Ordered By: Jasmin Velázquez on 05-27-2022 Basophils/100 WBC (Bld) 0.6 % . [facility] Blood hemoglobin measurement (mass/volume)Ordered By: Jasmin Velázquez on 05-27-2022 Hemoglobin (Bld) [Mass/Vol] 13.1 g/dL 11.8-15.4 [facility] Blood leukocytes automated c ount (number/volume)Ordered By: Jasmin Velázquez on 05-27-2022 WBC (Bld) [#/Vol] 13.2 10*3/uL 4.5-11.0 [facility] CT biopsyOrdered By: Jasimn noel on 05-27-2022 Transferrin [Mass/Vol] 307 mg/dL 180-[address] [facility] Eosinophils Auto (Bld) [#/Vo l]Ordered By: Jasmin Velázquez on 05-27-2022 Eosinophils (Bld) [#/Vol] 0.1 10*3/uL 0.0-0.45 [facility] Eosinophils/100 WBC Auto (Bl d)Ordered By: Jasmin Velázquez on 05-27-2022 Eosinophils/100 WBC (Bld) 1.0 % . [facility] Erythrocyte distribution wid th Auto (RBC) [Ratio]Ordered By: Jasmin Velázquez on 05-27-2022 Erythrocyte distribution width (RBC) [Ratio] 13.5 % 11.9-15.3 [facility] Ferritin [Mass/volume] in Se rum or PlasmaOrdered By: Jasmin Velázquez on 05-27-2022 Ferritin [Mass/Vol] 49.6 ng/mL 11-306.8 [facility] Hematocrit Auto (Bld) [Volum e fraction]Ordered By: Jasmin Velázquez on 05-27-2022 Hematocrit (Bld) [Volume fraction] 40.1 % 34.0-46.4 [facility] Iron [Mass/volume] in Serum or PlasmaOrdered By: Jasmin Velázquez on 05-27-2022 Iron [Mass/Vol] 50 ug/dL 40-150 [facility] Iron binding capacity [Mass/ volume] in Serum or PlasmaOrdered By: Jasmin Velázquez on 05-27-2022 Iron binding capacity [Mass/Vol] 430 ug/dL 255-450 [facility] Iron saturation [Mass Fracti on] in Serum or PlasmaOrdered By: Jasmin Velázquez on 05-27-2022 Iron saturation [Mass fraction] 11.0 % 20-50 [facility] Laboratory - Hematology and Cell countsOrdered By: Jasmin Velázquez on 05-27-2022 Nucleated RBC/100 WBC (Bld) [Ratio] 0.1 % 0-0.5 [facility] Lymphocytes Auto (Bld) [#/Vo l]Ordered By: Jasmin Velázquez on 05-27-2022 Lymphocytes (Bld) [#/Vol] 3.3 10*3/uL 1.00-4.8 [facility] Lymphocytes/100 WBC Auto (Bl d)Ordered By: Jasmin Velázquez on 05-27-2022 Lymphocytes/100 WBC (Bld) 24.8 % . [facility] MCH Auto (RBC) [Entitic mass ]Ordered By: Jasmin Velázquez on 05-27-2022 MCH (RBC) [Entitic mass] 30.0 pg 24.7-34.3 [facility] MCHC Auto (RBC) [Mass/Vol]Or dered By: Jasmin Velázquez on 05-27-2022 MCHC (RBC) [Mass/Vol] 32.7 g/dL 32.0-35.0 [facility] MCV Auto (RBC) [Entitic vol] Ordered By: Jasmin Velázquez on 05-27-2022 MCV (RBC) [Entitic vol] 91.5 fL 80-100 [facility] Monocytes Auto (Bld) [#/Vol] Ordered By: Jasmin Velázquez on 05-27-2022 Monocytes (Bld) [#/Vol] 1.0 10*3/uL 0.0-0.8 [facility] Monocytes/100 WBC Auto (Bld) Ordered By: Jasmin Velázquez on 05-27-2022 Monocytes/100 WBC (Bld) 7.6 % . [facility] Neutrophils Auto (Bld) [#/Vo l]Ordered By: Jasmin Velázquez on 05-27-2022 Neutrophils (Bld) [#/Vol] 8.7 10*3/uL 1.8-7.7 [facility] Neutrophils/100 WBC Auto (Bl d)Ordered By: Jasmin Velázquez on 05-27-2022 Neutrophils/100 WBC (Bld) 66.0 % . [facility] No Panel InformationOrdered By: Jasmin Velázquez on 05-27-2022 BCR/abl See comment [facility] Comment on above: See report. Scanned copy available in EMR. Platelet mean volume Auto (B ld) [Entitic vol]Ordered By: Jasmin Velázquez on 05-27-2022 Platelet mean volume (Bld) [Entitic vol] 8.8 fL 6.3-10.7 [facility] Platelets Auto (Bld) [#/Vol] Ordered By: Jasmin Velázquez on 05-27-2022 Platelets (Bld) [#/Vol] 284 10*3/uL 150-450 [facility] RBC Auto (Bld) [#/Vol]Ordere d By: Jasmin Velázquez on 05-27-2022 RBC (Bld) [#/Vol] 4.38 10*6/uL 3.60-5.00 [facility] Basophils Auto (Bld) [#/Vol] Ordered By: Ajit Pettit on 05-07-2022 Basophils (Bld) [#/Vol] 0.1 10*3/uL 0.0-0.2 [facility] Basophils/100 WBC Auto (Bld) Ordered By: Ajit Pettit on 05-07-2022 Basophils/100 WBC (Bld) 0.6 % . [facility] Blood hemoglobin measurement (mass/volume)Ordered By: Ajit Pettit on 05-07-2022 Hemoglobin (Bld) [Mass/Vol] 13.4 g/dL 11.8-15.4 [facility] Blood leukocytes automated c ount (number/volume)Ordered By: Ajit Pettit on 05-07-2022 WBC (Bld) [#/Vol] 16.2 10*3/uL 4.5-11.0 [facility] Eosinophils Auto (Bld) [#/Vo l]Ordered By: Ajit Pettit on 05-07-2022 Eosinophils (Bld) [#/Vol] 0.1 10*3/uL 0.0-0.45 [facility] Eosinophils/100 WBC Auto (Bl d)Ordered By: Ajit Pettit on 05-07-2022 Eosinophils/100 WBC (Bld) 0.9 % . [facility] Erythrocyte distribution wid th Auto (RBC) [Ratio]Ordered By: Ajit Pettit on 05-07-2022 Erythrocyte distribution width (RBC) [Ratio] 13.6 % 11.9-15.3 [facility] Hematocrit Auto (Bld) [Volum e fraction]Ordered By: Ajit Pettit on 05-07-2022 Hematocrit (Bld) [Volume fraction] 40.5 % 34.0-46.4 [facility] - Hematology and Cell countsOrdered By: Ajit Pettit on 05-07-2022 Nucleated RBC/100 WBC (Bld) [Ratio] 0.0 % 0-0.5 [facility] Lymphocytes Auto (Bld) [#/Vo l]Ordered By: Ajit Pettit on 05-07-2022 Lymphocytes (Bld) [#/Vol] 4.7 10*3/uL 1.00-4.8 [facility] Lymphocytes/100 WBC Auto (Bl d)Ordered By: Ajit Pettit on 05-07-2022 Lymphocytes/100 WBC (Bld) 28.9 % . [facility] MCH Auto (RBC) [Entitic mass ]Ordered By: Ajit Pettit on 05-07-2022 MCH (RBC) [Entitic mass] 30.7 pg 24.7-34.3 [facility] MCHC Auto (RBC) [Mass/Vol]Or dered By: Ajit Pettit on 05-07-2022 MCHC (RBC) [Mass/Vol] 33.2 g/dL 32.0-35.0 [facility] MCV Auto (RBC) [Entitic vol] Ordered By: Ajit Pettit on 05-07-2022 MCV (RBC) [Entitic vol] 92.5 fL 80-100 [facility] Monocytes Auto (Bld) [#/Vol] Ordered By: Ajit Pettit on 05-07-2022 Monocytes (Bld) [#/Vol] 1.1 10*3/uL 0.0-0.8 [facility] Monocytes/100 WBC Auto (Bld) Ordered By: Ajit Pettit on 05-07-2022 Monocytes/100 WBC (Bld) 6.8 % . [facility] Neutrophils Auto (Bld) [#/Vo l]Ordered By: Ajit Pettit on 05-07-2022 Neutrophils (Bld) [#/Vol] 10.2 10*3/uL 1.8-7.7 [facility] Neutrophils/100 WBC Auto (Bl d)Ordered By: Ajit Pettit on 05-07-2022 Neutrophils/100 WBC (Bld) 62.8 % . [facility] No Panel InformationOrdered By: Ajit Pettit on 05-07-2022 Platelet Estimate Normal Normal [facility] Platelet Morphology Comment Normal Normal [facility] Platelet mean volume Auto (B ld) [Entitic vol]Ordered By: Ajit Pettit on 05-07-2022 Platelet mean volume (Bld) [Entitic vol] 8.0 fL 6.3-10.7 [facility] Platelets Auto (Bld) [#/Vol] Ordered By: Ajit Pettit on 05-07-2022 Platelets (Bld) [#/Vol] 369 10*3/uL 150-450 [facility] RBC Auto (Bld) [#/Vol]Ordere d By: Ajit Pettit on 05-07-2022 RBC (Bld) [#/Vol] 4.38 10*6/uL 3.60-5.00 [facility] RBC morphologyOrdered By: Cole Pettit on 05-07-2022 RBC morphology finding Nom (Bld) Normal [facility] Bacterial blood cultureOrder ed By: Rod Alvarado on 05-06-2022 Bacteria identified Cx Nom (Bld) NO GROWTH 5 DAYS [facility] Bacteria identified Cx Nom (Bld) NO GROWTH 5 DAYS [facility] Bacterial blood cultureOrder ed By: Ajit Pettit on 05-06-2022 Bacteria identified Cx Nom (Bld) NO GROWTH 5 DAYS [facility] Urine culture routineOrdered By: Ajit Pettit on 05-02-2022 Bacteria identified Cx Nom (U) 2 Days [facility] Activated partial thrombopla stin time (aPTT) in platelet poor plasma by coagulation aOrdered By: Rod Alvarado on 05-01-2022 aPTT Coag (PPP) [Time] 29.2 s 25.1-36.[address] [facility] Automated epithelial cells c ount in urine sediment (number/area)Ordered By: Rod Alvarado on 05-01-2022 Epithelial cells Auto (Urine sed) [#/Area] 5-9 [HPF] 0-2 [facility] Automated erythrocytes count in urine sediment (number/area)Ordered By: Rod Alvarado on 05-01-2022 RBC Auto (Urine sed) [#/Area] 1-2 [HPF] 0-4 [facility] Automated leukocytes count i n urine sediment (number/area)Ordered By: Rod Alvarado on 05-01-2022 WBC Auto (Urine sed) [#/Area] 1-2 [HPF] 0-4 [facility] Basophils Auto (Bld) [#/Vol] Ordered By: Rod Alvarado on 05-01-2022 Basophils (Bld) [#/Vol] 0.2 10*3/uL 0.0-0.2 [facility] Basophils Auto (Bld) [#/Vol] Ordered By: Ajit Pettit on 05-01-2022 Basophils (Bld) [#/Vol] 0.1 10*3/uL 0.0-0.2 [facility] Basophils/100 WBC Auto (Bld) Ordered By: Rod Alvarado on 05-01-2022 Basophils/100 WBC (Bld) 1.0 % . [facility] Basophils/100 WBC Auto (Bld) Ordered By: Ajit Pettit on 05-01-2022 Basophils/100 WBC (Bld) 0.7 % . [facility] Bilirubin Auto test strip Ql (U)Ordered By: Rod Alvarado on 05-01-2022 Bilirubin Ql (U) 1+ Negative [facility] Blood hemoglobin measurement (mass/volume)Ordered By: Rod Alvarado on 05-01-2022 Hemoglobin (Bld) [Mass/Vol] 13.1 g/dL 11.8-15.4 [facility] Blood hemoglobin measurement (mass/volume)Ordered By: Ajit Pettit on 05-01-2022 Hemoglobin (Bld) [Mass/Vol] 12.9 g/dL 11.8-15.4 [facility] Blood leukocytes automated c ount (number/volume)Ordered By: Rod Alvarado on 05-01-2022 WBC (Bld) [#/Vol] 15.9 10*3/uL 4.5-11.0 [facility] Blood leukocytes automated c ount (number/volume)Ordered By: Ajit Pettit on 05-01-2022 WBC (Bld) [#/Vol] 14.7 10*3/uL 4.5-11.0 [facility] Body fluid albumin measureme nt (mass/volume)Ordered By: Ajit Pettit on 05-01-2022 Albumin (Body fld) [Mass/Vol] 3.6 g/dL 3.2-5.5 [facility] Creatinine and Glomerular fi ltration rate.predicted panel (S/P/Bld)Ordered By: Rod Alvarado on 05-01-2022 Creatinine [Mass/Vol] 0.58 mg/dL 0.44-1.03 [facility] Creatinine and Glomerular fi ltration rate.predicted panel (S/P/Bld)Ordered By: Ajit Pettit on 05-01-2022 Creatinine [Mass/Vol] 0.58 mg/dL 0.44-1.03 [facility] Eosinophils Auto (Bld) [#/Vo l]Ordered By: Rod Alvarado on 05-01-2022 Eosinophils (Bld) [#/Vol] 0.2 10*3/uL 0.0-0.45 [facility] Eosinophils Auto (Bld) [#/Vo l]Ordered By: Ajit Pettit on 05-01-2022 Eosinophils (Bld) [#/Vol] 0.1 10*3/uL 0.0-0.45 [facility] Eosinophils/100 WBC Auto (Bl d)Ordered By: Rod Alvarado on 05-01-2022 Eosinophils/100 WBC (Bld) 1.0 % . [facility] Eosinophils/100 WBC Auto (Bl d)Ordered By: Ajit Pettit on 05-01-2022 Eosinophils/100 WBC (Bld) 0.9 % . [facility] Erythrocyte distribution wid th Auto (RBC) [Ratio]Ordered By: Rod Alvarado on 05-01-2022 Erythrocyte distribution width (RBC) [Ratio] 13.6 % 11.9-15.3 [facility] Erythrocyte distribution wid th Auto (RBC) [Ratio]Ordered By: Ajit Pettit on 05-01-2022 Erythrocyte distribution width (RBC) [Ratio] 13.6 % 11.9-15.3 [facility] Estimated glomerular filtrat ion rate (GFR) non- AmericanOrdered By: Rod Alvarado on 05-01-2022 GFR/1.73 sq M.predicted among non-blacks MDRD (S/P/Bld) [Vol rate/Area] > 60 mL/Min [facility] Estimated glomerular filtrat ion rate (GFR) non- AmericanOrdered By: Ajit Pettit on 05-01-2022 GFR/1.73 sq M.predicted among non-blacks MDRD (S/P/Bld) [Vol rate/Area] > 60 mL/Min [facility] Globulin Calc (S) [Mass/Vol] Ordered By: Ajit Pettit on 05-01-2022 Globulin (S) [Mass/Vol] 2.6 g/dL [facility] Hematocrit Auto (Bld) [Volum e fraction]Ordered By: Rod Alvarado on 05-01-2022 Hematocrit (Bld) [Volume fraction] 39.0 % 34.0-46.4 [facility] Hematocrit Auto (Bld) [Volum e fraction]Ordered By: Ajit Pettit on 05-01-2022 Hematocrit (Bld) [Volume fraction] 39.0 % 34.0-46.4 [facility] Ketones Auto test strip (U) [Mass/Vol]Ordered By: Rod Alvarado on 05-01-2022 Ketones (U) [Mass/Vol] Trace Negative Fi [facility] - Chemistry and C hemistry - challengeOrdered By: Rod Alvarado on 05-01-2022 Lipase [Catalytic activity/Vol] 37.0 U/L 22- [facility] - CoagulationOrde red By: Rod Alvarado on 05-01-2022 PT Coag (PPP) [Time] 9.6 s 9.0-12.9 [facility] - Hematology and Cell countsOrdered By: Rod Alvarado on 05-01-2022 Nucleated RBC/100 WBC (Bld) [Ratio] 0.0 % 0-0.5 [facility] - Hematology and Cell countsOrdered By: Ajit Pettit on 05-01-2022 Nucleated RBC/100 WBC (Bld) [Ratio] 0.0 % 0-0.5 [facility] Lymphocytes Auto (Bld) [#/Vo l]Ordered By: Rod Alvarado on 05-01-2022 Lymphocytes (Bld) [#/Vol] 4.3 10*3/uL 1.00-4.8 [facility] Lymphocytes Auto (Bld) [#/Vo l]Ordered By: Ajit Pettit on 05-01-2022 Lymphocytes (Bld) [#/Vol] 3.6 10*3/uL 1.00-4.8 [facility] Lymphocytes/100 WBC Auto (Bl d)Ordered By: Rod Alvarado on 05-01-2022 Lymphocytes/100 WBC (Bld) 26.9 % . [facility] Lymphocytes/100 WBC Auto (Bl d)Ordered By: Ajit Pettit on 05-01-2022 Lymphocytes/100 WBC (Bld) 24.8 % . [facility] MCH Auto (RBC) [Entitic mass ]Ordered By: Rod Alvarado on 05-01-2022 MCH (RBC) [Entitic mass] 30.5 pg 24.7-34.3 [facility] MCH Auto (RBC) [Entitic mass ]Ordered By: Ajit Pettit on 05-01-2022 MCH (RBC) [Entitic mass] 30.5 pg 24.7-34.3 [facility] MCHC Auto (RBC) [Mass/Vol]Or dered By: Rod Alvarado on 05-01-2022 MCHC (RBC) [Mass/Vol] 33.5 g/dL 32.0-35.0 [facility] MCHC Auto (RBC) [Mass/Vol]Or dered By: Ajit Pettit on 05-01-2022 MCHC (RBC) [Mass/Vol] 32.9 g/dL 32.0-35.0 [facility] MCV Auto (RBC) [Entitic vol] Ordered By: Rod Alvarado on 05-01-2022 MCV (RBC) [Entitic vol] 91.0 fL 80-100 [facility] MCV Auto (RBC) [Entitic vol] Ordered By: Ajit Pettit on 05-01-2022 MCV (RBC) [Entitic vol] 92.6 fL 80-100 [facility] Monocytes Auto (Bld) [#/Vol] Ordered By: Rod Alvarado on 05-01-2022 Monocytes (Bld) [#/Vol] 1.1 10*3/uL 0.0-0.8 [facility] Monocytes Auto (Bld) [#/Vol] Ordered By: Ajit Pettit on 05-01-2022 Monocytes (Bld) [#/Vol] 1.1 10*3/uL 0.0-0.8 [facility] Monocytes/100 WBC Auto (Bld) Ordered By: Rod Alvarado on 05-01-2022 Monocytes/100 WBC (Bld) 6.7 % . [facility] Monocytes/100 WBC Auto (Bld) Ordered By: Ajit Pettit on 05-01-2022 Monocytes/100 WBC (Bld) 7.2 % . [facility] Neutrophils Auto (Bld) [#/Vo l]Ordered By: Rod Alvarado on 05-01-2022 Neutrophils (Bld) [#/Vol] 10.3 10*3/uL 1.8-7.7 [facility] Neutrophils Auto (Bld) [#/Vo l]Ordered By: Ajit Pettit on 05-01-2022 Neutrophils (Bld) [#/Vol] 9.8 10*3/uL 1.8-7.7 [facility] Neutrophils/100 WBC Auto (Bl d)Ordered By: Rod Alvarado on 05-01-2022 Neutrophils/100 WBC (Bld) 64.4 % . [facility] Neutrophils/100 WBC Auto (Bl d)Ordered By: Ajit Pettit on 05-01-2022 Neutrophils/100 WBC (Bld) 66.4 % . [facility] No Panel InformationOrdered By: Rod Alvarado on 05-01-2022 Estimated GFR () > 60 mL/Min [facility] Comment on above: GFR estimated refere nce range: According to KDOQI guidelines, <60 ml/min/1.73m2 is sufficient to diagnose a patient with chronic kidney disease. Pharmacy Creatinine Clearance (Chem 128.97 [facility] No Panel InformationOrdered By: Ajit Pettit on 05-01-2022 Estimated GFR () > 60 mL/Min [facility] Comment on above: GFR estimated refere nce range: According to KDOQI guidelines, <60 ml/min/1.73m2 is sufficient to diagnose a patient with chronic kidney disease. Pharmacy Creatinine Clearance (Chem N/A [facility] Platelet mean volume Auto (B ld) [Entitic vol]Ordered By: Rod Alvarado on 05-01-2022 Platelet mean volume (Bld) [Entitic vol] 7.6 fL 6.3-10.7 [facility] Platelet mean volume Auto (B ld) [Entitic vol]Ordered By: Ajit Pettit on 05-01-2022 Platelet mean volume (Bld) [Entitic vol] 8.1 fL 6.3-10.7 [facility] Platelet poor plasma interna tional normalized ratio (INR) by coagulation assay (relatOrdered By: Rod Alvarado on 05-01-2022 INR Coag (PPP) [Relative time] 0.9 {INR} [facility] Comment on above: INR Therapeutic Rang [...] 05-01-2022 Platelets (Bld) [#/Vol] 310 10*3/uL 150-450 [facility] Platelets Auto (Bld) [#/Vol] Ordered By: Ajit Pettit on 05-01-2022 Platelets (Bld) [#/Vol] 284 10*3/uL 150-450 [facility] Protein Auto test strip (U) [Mass/Vol]Ordered By: Rod Alvarado on 05-01-2022 Protein (U) [Mass/Vol] Negative Negative Fi [facility] Protein [Mass/volume] in Ser um or PlasmaOrdered By: Ajit Pettit on 05-01-2022 Protein [Mass/Vol] 6.2 g/dL 6.1-7.9 [facility] RBC Auto (Bld) [#/Vol]Ordere d By: Rod [...] additional P-5'-P [Catalytic activity/Vol] 17 U/L 10-60 [facility] Serum or plasma albumin/glob ulin mass ratioOrdered By: Ajit Pettit on 05-01-2022 Albumin/Globulin [Mass ratio] 1.4 {ratio} [facility] Serum or plasma alkaline lalo sphatase measurement (enzymatic activity/volume)Ordered By: Ajit Pettit on 05-01-2022 ALP [Catalytic activity/Vol] 52 U/L 32-92 [facility] Serum or plasma aspartate am inotransferase measurement (enzymatic activity/volume)Ordered By: Ajit Pettit on 05-01-2022 AST [Catalytic activity/Vol] 19 U/L 10-42 [facility] Serum or plasma calcium ashwini urement (mass/volume)Ordered By: Rod Alvarado on 05-01-2022 Calcium [Mass/Vol] 9.0 mg/dL 8.2-10.2 [facility] Serum or plasma calcium ashwini urement (mass/volume)Ordered By: Ajit Pettit on 05-01-2022 Calcium [Mass/Vol] 9.2 mg/dL 8.2-10.2 [facility] Serum or plasma chloride jett surement (moles/volume)Ordered By: Rod Alvarado on 05-01-2022 Chloride [Moles/Vol] 101 mmol/L 95-114 [facility] Serum or plasma chloride jett surement (moles/volume)Ordered By: Ajit Pettit on 05-01-2022 Chloride [Moles/Vol] 100 mmol/L 95-114 [facility] Serum or plasma glucose ashwini urement (mass/volume)Ordered By: Rod Alvarado on 05-01-2022 Glucose [Mass/Vol] 110 mg/dL 70-100 [facility] Comment on above: ADA recommended refe [...] on 05-01-2022 Glucose [Mass/Vol] 117 mg/dL 70-100 [facility] Comment on above: ADA recommended refe [...] on 05-01-2022 Potassium [Moles/Vol] 4.4 mmol/L 3.5-5.1 [facility] Serum or plasma potassium me asurement (moles/volume)Ordered By: Ajit Pettit on 05-01-2022 Potassium [Moles/Vol] 4.4 mmol/L 3.5-5.1 [facility] Serum or plasma sodium measu rement (moles/volume)Ordered By: Rod Alvarado on 05-01-2022 Sodium [Moles/Vol] 135 mmol/L 136-146 [facility] Serum or plasma sodium measu rement (moles/volume)Ordered By: Ajit Pettit on 05-01-2022 Sodium [Moles/Vol] 133 mmol/L 136-146 [facility] Serum or plasma total biliru bin measurement (mass/volume)Ordered By: Rod Alvarado on 05-01-2022 Bilirubin [Mass/Vol] 0.7 mg/dL 0.3-1.2 [facility] Serum or plasma total biliru bin measurement (mass/volume)Ordered By: Ajit Pettit on 05-01-2022 Bilirubin [Mass/Vol] 0.4 mg/dL 0.3-1.2 [facility] Serum or plasma total carbon dioxide measurement (moles/volume)Ordered By: Rod Alvarado on 05-01-2022 CO2 [Moles/Vol] 25.9 mmol/L 22.0-30.0 [facility] Serum or plasma total carbon dioxide measurement (moles/volume)Ordered By: Ajit Pettit on 05-01-2022 CO2 [Moles/Vol] 23.1 mmol/L 22.0-30.0 [facility] Serum or plasma urea nitroge n measurement (mass/volume)Ordered By: Rod Alvarado on 05-01-2022 Urea nitrogen [Mass/Vol] 11 mg/dL 06-26 [facility] Serum or plasma urea nitroge n measurement (mass/volume)Ordered By: Ajit Pettit on 05-01-2022 Urea nitrogen [Mass/Vol] 14 mg/dL 06-26 [facility] Urine appearanceOrdered By: Rod Alvarado on 05-01-2022 Appearance (U) Clear Clear [facility] Urine bacteria detection by automated methodOrdered By: Rod Alvarado on 05-01-2022 Bacteria Auto Ql (U) 1+ None Seen [facility] Urine colorOrdered By: Shady Alvarado on 05-01-2022 Color (U) Yellow Yellow [facility] Urine glucose measurement by automated test strip (mass/volume)Ordered By: Rod Alvarado on 05-01-2022 Glucose Auto test strip (U) [Mass/Vol] Normal mg/dL Normal [facility] Urine hemoglobin detection b y automated test stripOrdered By: Rod Alvarado on 05-01-2022 Hemoglobin Auto test strip Ql (U) Negative Negative [facility] Urine lactic acid measuremen tOrdered By: oRd Alvarado on 05-01-2022 Lactate (U) [Moles/Vol] 1.7 mmol/L 0.5-2.2 [facility] Urine lactic acid measuremen tOrdered By: Ajit Pettit on 05-01-2022 Lactate (U) [Moles/Vol] 2.5 mmol/L 0.5-2.2 [facility] Comment on above: Results called at 1022 on 05/01/22 Results calledat 102 2 on 05/01/22 Urine leukocyte esterase det ection by automated test stripOrdered By: Rod Alvarado on 05-01-2022 Leukocyte esterase Auto test strip Ql (U) 2+ Negative [facility] Urine nitrite detection by a utomated test stripOrdered By: Rod Alvarado on 05-01-2022 Nitrite Auto test strip Ql (U) Negative Negative [facility] Urobilinogen Auto test strip (U) [Mass/Vol]Ordered By: Rod Alvarado on 05-01-2022 Urobilinogen (U) [Mass/Vol] Normal mg/dL Normal [facility] pH Auto test strip (U)Ordere d By: Rod Alvarado on 05-01-2022 pH (U) 1.030 [pH] 1.001-1.03 0 [facility] pH (U) 6.0 [pH] 5.0-9.0 [facility] Basophils Auto (Bld) [#/Vol] Ordered By: Ajit Pettit on 04-30-2022 Basophils (Bld) [#/Vol] 0.2 10*3/uL 0.0-0.2 [facility] Basophils/100 WBC Auto (Bld) Ordered By: Ajit Pettit on 04-30-2022 Basophils/100 WBC (Bld) 0.9 % . [facility] Blood hemoglobin measurement (mass/volume)Ordered By: Ajit Pettit on 04-30-2022 Hemoglobin (Bld) [Mass/Vol] 13.9 g/dL 11.8-15.4 [facility] Blood leukocytes automated c ount (number/volume)Ordered By: Ajit Pettit on 04-30-2022 WBC (Bld) [#/Vol] 19.7 10*3/uL 4.5-11.0 [facility] Body fluid albumin measureme nt (mass/volume)Ordered By: Ajit Pettit on 04-30-2022 Albumin (Body fld) [Mass/Vol] 4.1 g/dL 3.2-5.[address] [facility] [address] biopsyOrdered By: Ajit corrales on 04-30-2022 Transferrin [Mass/Vol] 352 mg/dL 180-[address] [facility] Cholesterol [Mass/volume] in Serum or PlasmaOrdered By: Ajit Pettit on 04-30-2022 Cholesterol [Mass/Vol] 260 mg/dL 140-[address] [facility] Comment on above: Chol less than 200 m g/dl low risk Chol 201-239 mg/dl borderline risk Chol 240 mg/dl and greater high risk Chol less than 200 m g/dl low riskChol 201-239 mg/dl borderline riskChol 240 mg/dl and greater high risk Cholesterol in LDL Calc [Mas s/Vol]Ordered By: Ajit Pettit on 04-30-2022 Cholesterol in LDL [Mass/Vol] 134 mg/dL 0-100 [facility] Comment on above: LDL ATP III [...] 04-30-2022 Cholesterol in VLDL [Mass/Vol] 68 mg/dL [facility] Creatinine and Glomerular fi ltration rate.predicted panel (S/P/Bld)Ordered By: Ajit Pettit on 04-30-2022 Creatinine [Mass/Vol] 0.56 mg/dL 0.44-1.03 [facility] Eosinophils Auto (Bld) [#/Vo l]Ordered By: Ajit Pettit on 04-30-2022 Eosinophils (Bld) [#/Vol] 0.2 10*3/uL 0.0-0.45 [facility] Eosinophils/100 WBC Auto (Bl d)Ordered By: Ajit Pettit on 04-30-2022 Eosinophils/100 WBC (Bld) 1.0 % . [facility] Erythrocyte distribution wid th Auto (RBC) [Ratio]Ordered By: Ajit Pettit on 04-30-2022 Erythrocyte distribution width (RBC) [Ratio] 13.5 % 11.9-15.3 [facility] Estimated glomerular filtrat ion rate (GFR) non- AmericanOrdered By: Ajit Pettit on 04-30-2022 GFR/1.73 sq M.predicted among non-blacks MDRD (S/P/Bld) [Vol rate/Area] > 60 mL/Min [facility] Globulin Calc (S) [Mass/Vol] Ordered By: Ajit Pettit on 04-30-2022 Globulin (S) [Mass/Vol] 2.9 g/dL [facility] Hematocrit Auto (Bld) [Volum e fraction]Ordered By: Ajit Pettit on 04-30-2022 Hematocrit (Bld) [Volume fraction] 42.9 % 34.0-46.4 [facility] Iron [Mass/volume] in Serum or PlasmaOrdered By: Ajit Pettit on 04-30-2022 Iron [Mass/Vol] 51 ug/dL 40-150 [facility] Iron binding capacity [Mass/ volume] in Serum or PlasmaOrdered By: Ajit Pettit on 04-30-2022 Iron binding capacity [Mass/Vol] 493 ug/dL 255-450 [facility] Iron saturation [Mass Fracti on] in Serum or PlasmaOrdered By: Ajit Pettit on 04-30-2022 Iron saturation [Mass fraction] 10.0 % 20-50 [facility] Laboratory - Chemistry and C hemistry - challengeOrdered By: Ajit Pettit on 04-30-2022 Cobalamin (Vitamin B12) [Mass/Vol] 472 pg/mL 180-914 [facility] - Hematology and Cell countsOrdered By: Ajit Pettit on 04-30-2022 Nucleated RBC/100 WBC (Bld) [Ratio] 0.2 % 0-0.5 [facility] Lymphocytes Auto (Bld) [#/Vo l]Ordered By: Ajit Pettit on 04-30-2022 Lymphocytes (Bld) [#/Vol] 4.1 10*3/uL 1.00-4.8 [facility] Lymphocytes/100 WBC Auto (Bl d)Ordered By: Ajit Pettit on 04-30-2022 Lymphocytes/100 WBC (Bld) 20.8 % . [facility] MCH Auto (RBC) [Entitic mass ]Ordered By: Ajit Pettit on 04-30-2022 MCH (RBC) [Entitic mass] 30.0 pg 24.7-34.3 [facility] MCHC Auto (RBC) [Mass/Vol]Or dered By: Ajit Pettit on 04-30-2022 MCHC (RBC) [Mass/Vol] 32.4 g/dL 32.0-35.0 [facility] MCV Auto (RBC) [Entitic vol] Ordered By: Ajit Pettit on 04-30-2022 MCV (RBC) [Entitic vol] 92.7 fL 80-100 [facility] Monocytes Auto (Bld) [#/Vol] Ordered By: Ajit Pettit on 04-30-2022 Monocytes (Bld) [#/Vol] 1.3 10*3/uL 0.0-0.8 [facility] Monocytes/100 WBC Auto (Bld) Ordered By: Ajit Pettit on 04-30-2022 Monocytes/100 WBC (Bld) 6.8 % . [facility] Neutrophils Auto (Bld) [#/Vo l]Ordered By: Ajit Pettit on 04-30-2022 Neutrophils (Bld) [#/Vol] 13.9 10*3/uL 1.8-7.7 [facility] Neutrophils/100 WBC Auto (Bl d)Ordered By: Ajit Pettit on 04-30-2022 Neutrophils/100 WBC (Bld) 70.5 % . [facility] No Panel InformationOrdered By: Ajit Pettit on 04-30-2022 25-Hydroxy Vitamin D Total 19.9 ng/mL 30-100 [facility] Comment on above: VITAMIN D STATUS 25( [place])VITAMIN D RANGE (ng/mL) Deficient <20 Insufficient 20 to <30 Sufficient 30 to 100 Reference: Dominique Restrepo, Gillian NINA, et al. Evaluation,treatment, and prevention of vitamin D deficiency; an Endocrine Society clinical practice guideline. EM. 2010; 96(7):1911-30. VITAMIN D STATUS 25( [place])VITAMIN D RANGE (ng/mL) Deficient <20 Insufficient 20 to <30Sufficient 30 to 100Reference: Dominique Restrepo, Gillian NINA, et al. Evaluation,treatment, and prevention of vitamin D deficiency; an Endocrine Society clinical practice guideline. JCEM. 2010; 96(7):1911-. Estimated GFR () > 60 mL/Min [facility] Comment on above: GFR estimated refere nce range: According to KDOQI guidelines, <60 ml/min/1.73m2 is sufficient to diagnose a patient with chronic kidney disease. Pharmacy Creatinine Clearance (Chem N/A [facility] Valproic Acid (Depakene) Level 59.8 ug/mL 50.0-100.0 [facility] Comment on above: Last dose: - Platelet mean volume Auto (B ld) [Entitic vol]Ordered By: Ajit Pettit on 04-30-2022 Platelet mean volume (Bld) [Entitic vol] 8.7 fL 6.3-10.7 [facility] Platelets Auto (Bld) [#/Vol] Ordered By: Ajit Pettit on 04-30-2022 Platelets (Bld) [#/Vol] 257 10*3/uL 150-450 [facility] Protein [Mass/volume] in Ser um or PlasmaOrdered By: Ajit Pettit on 04-30-2022 Protein [Mass/Vol] 7.0 g/dL 6.1-7.9 [facility] RBC Auto (Bld) [#/Vol]Ordere d By: Ajit Pettit on 04-30-2022 RBC (Bld) [#/Vol] 4.62 10*6/uL 3.60-5.00 [facility] Serum or plasma alanine george otransferase measurement without P-5'-P (enzymatic activiOrdered By: Ajit Pettit on 04-30-2022 ALT No additional P-5'-P [Catalytic activity/Vol] 20 U/L 10-60 [facility] Serum or plasma albumin/glob ulin mass ratioOrdered By: Ajit Pettit on 04-30-2022 Albumin/Globulin [Mass ratio] 1.4 {ratio} [facility] Serum or plasma alkaline lalo sphatase measurement (enzymatic activity/volume)Ordered By: Ajit Pettit on 04-30-2022 ALP [Catalytic activity/Vol] 54 U/L 32-92 [facility] Serum or plasma aspartate am inotransferase measurement (enzymatic activity/volume)Ordered By: Ajit Pettit on 04-30-2022 AST [Catalytic activity/Vol] 22 U/L 10-42 [facility] Serum or plasma calcium ashwini urement (mass/volume)Ordered By: Ajit Pettit on 04-30-2022 Calcium [Mass/Vol] 9.4 mg/dL 8.2-10.2 [facility] Serum or plasma chloride jett surement (moles/volume)Ordered By: Ajit Pettit on 04-30-2022 Chloride [Moles/Vol] 102 mmol/L 95-114 [facility] Serum or plasma glucose ashwini urement (mass/volume)Ordered By: Ajit Pettit on 04-30-2022 Glucose [Mass/Vol] 115 mg/dL 70-100 [facility] Comment on above: ADA recommended refe [...] Cholesterol in HDL [Mass/Vol] 57 mg/dL 35-85 [facility] Comment on above: HDL CHOL ATP-III CLA SSIFICATION Cardiovascular Risk HDL > or equal to 60 mg/dL LOW HDL < 40 mg/dL HIGH HDL CHOL ATP-III CLA SSIFICATION Cardiovascular RiskHDL > or equal to 60 mg/dL LOWHDL < 40 mg/dL HIGH Serum or plasma potassium me asurement (moles/volume)Ordered By: Ajit Pettit on 04-30-2022 Potassium [Moles/Vol] 4.8 mmol/L 3.5-5.1 [facility] Serum or plasma sodium measu rement (moles/volume)Ordered By: Ajit Pettit on 04-30-2022 Sodium [Moles/Vol] 135 mmol/L 136-146 [facility] Serum or plasma total biliru bin measurement (mass/volume)Ordered By: Ajit Pettit on 04-30-2022 Bilirubin [Mass/Vol] 0.2 mg/dL 0.3-1.2 [facility] Serum or plasma total carbon dioxide measurement (moles/volume)Ordered By: Ajit Pettit on 04-30-2022 CO2 [Moles/Vol] 24.2 mmol/L 22.0-30.0 [facility] Serum or plasma total choles terol/high density lipoprotein (HDL) cholesterol mass ratOrdered By: Ajit Pettit on 04-30-2022 Cholesterol.total/Suellen sterol in HDL [Mass ratio] 4.6 {ratio} <5.0 [facility] Serum or plasma urea nitroge n measurement (mass/volume)Ordered By: Ajit Pettit on 04-30-2022 Urea nitrogen [Mass/Vol] 12 mg/dL 9- [facility] TSH DL <= 0.005 mIU/L QnOrde red By: Ajit Pettit on 04-30-2022 TSH Qn 2.89 m[IU]/L 0.45-5.33 [facility] Triglyceride [Mass/volume] i n Serum or PlasmaOrdered By: Ajit Pettit on 04-30-2022 Triglyceride [Mass/Vol] 344 mg/dL 35-149 [facility] Comment on above: TRIG ATP III [...] 01-21-2021 Basophils (Bld) [#/Vol] 0.1 10*3/uL 0.0-0.2 [facility] Basophils/100 WBC Auto (Bld) on 01-21-2021 Basophils/100 WBC (Bld) 1.0 % [facility] Blood hemoglobin measurement (mass/volume)on 01-21-2021 Hemoglobin (Bld) [Mass/Vol] 13.0 g/dL 11.8-15.4 [facility] Blood leukocytes automated c ount (number/volume)on 01-21-2021 WBC (Bld) [#/Vol] 13.2 10*3/uL 4.5-11.0 [facility] Body fluid albumin measureme nt (mass/volume)on 01-21-2021 Albumin (Body fld) [Mass/Vol] 3.7 g/dL 3.2-5.5 [facility] Creatinine and Glomerular fi ltration rate.predicted panel (S/P/Bld)on 01-21-2021 Creatinine [Mass/Vol] 0.67 mg/dL 0.44-1.03 [facility] Eosinophils Auto (Bld) [#/Vo l]on 01-21-2021 Eosinophils (Bld) [#/Vol] 0.1 10*3/uL 0.0-0.45 [facility] Eosinophils/100 WBC Auto (Bl d)on 01-21-2021 Eosinophils/100 WBC (Bld) 0.8 % [facility] Erythrocyte distribution wid th Auto (RBC) [Ratio]on 01-21-2021 Erythrocyte distribution width (RBC) [Ratio] 13.1 % 11.9-15.3 [facility] Estimated glomerular filtrat ion rate (GFR) non- Americanon 01-21-2021 GFR/1.73 sq M.predicted among non-blacks MDRD (S/P/Bld) [Vol rate/Area] > 60 mL/Min [facility] Globulin Calc (S) [Mass/Vol] on 01-21-2021 Globulin (S) [Mass/Vol] 2.7 g/dL F [facility] Hematocrit Auto (Bld) [Volum e fraction]on 01-21-2021 Hematocrit (Bld) [Volume fraction] 38.1 % 34.0-46.4 [facility] Laboratory - Chemistry and C hemistry - challengeon 01-21-2021 Cobalamin (Vitamin B12) [Mass/Vol] 341 pg/mL 180-914 [facility] Laboratory - Hematology and Cell countson 01-21-2021 Nucleated RBC/100 WBC (Bld) [Ratio] 0.2 % 0-0.5 [facility] Lymphocytes Auto (Bld) [#/Vo l]on 01-21-2021 Lymphocytes (Bld) [#/Vol] 3.9 10*3/uL 1.00-4.8 [facility] Lymphocytes/100 WBC Auto (Bl d)on 01-21-2021 Lymphocytes/100 WBC (Bld) 29.4 % [facility] MCH Auto (RBC) [Entitic mass ]on 01-21-2021 MCH (RBC) [Entitic mass] 30.6 pg 24.7-34.3 [facility] MCHC Auto (RBC) [Mass/Vol]on 01-21-2021 MCHC (RBC) [Mass/Vol] 34.1 g/dL 32.0-35.0 [facility] MCV Auto (RBC) [Entitic vol] on 01-21-2021 MCV (RBC) [Entitic vol] 89.6 fL 80-100 F [facility] Monocytes Auto (Bld) [#/Vol] on 01-21-2021 Monocytes (Bld) [#/Vol] 1.1 10*3/uL 0.0-0.8 [facility] Monocytes/100 WBC Auto (Bld) on 01-21-2021 Monocytes/100 WBC (Bld) 8.6 % F [facility] Neutrophils Auto (Bld) [#/Vo l]on 01-21-2021 Neutrophils (Bld) [#/Vol] 8.0 10*3/uL 1.8-7.7 [facility] Neutrophils/100 WBC Auto (Bl d)on 01-21-2021 Neutrophils/100 WBC (Bld) 60.2 % [facility] No Panel Informationon 01-21 25-Hydroxy Vitamin D Total 25.5 ng/mL 30-100 [facility] Comment on above: VITAMIN D STATUS 25( [place])VITAMIN D RANGE (ng/mL) Deficient <20 Insufficient 20 to <30Sufficient 30 to 100Reference: Jovanni MF,Dominique NC, Gillian NINA, et al. Evaluation,treatment, and prevention of vitamin D deficiency; an Endocrine Society clinical practice guideline. JCEM. 2010; 96(7):1911-30. Estimated GFR () > 60 mL/Min [facility] Comment on above: GFR estimated refere nce range: According to KDOQI guidelines, <60 ml/min/1.73m2 is sufficient to diagnose a patient with chronic kidney disease. Pharmacy Creatinine Clearance (Chem N/A [facility] Valproic Acid (Depakene) Level 74.3 ug/mL 50.0-100.0 [facility] Comment on above: Last dose: - Platelet mean volume Auto (B ld) [Entitic vol]on 01-21-2021 Platelet mean volume (Bld) [Entitic vol] 9.1 fL 6.3-10.7 [facility] Platelets Auto (Bld) [#/Vol] on 01-21-2021 Platelets (Bld) [#/Vol] 261 10*3/uL 150-450 [facility] Protein [Mass/volume] in Ser um or Plasmaon 01-21-2021 Protein [Mass/Vol] 6.4 g/dL 6.1-7.9 [place] RBC Auto (Bld) [#/Vol]on RBC (Bld) [#/Vol] 4.25 10*6/uL 3.60-5.00 [facility] Serum or plasma alanine george otransferase measurement without P-5'-P (enzymatic activion 01-21-2021 ALT No additional P-5'-P [Catalytic activity/Vol] 14 U/L 1060 [facility] Serum or plasma albumin/glob ulin mass ratioon 01-21-2021 Albumin/Globulin [Mass ratio] 1.4 {ratio} [facility] Serum or plasma alkaline lalo sphatase measurement (enzymatic activity/volume)on 01-21-2021 ALP [Catalytic activity/Vol] 50 U/L 32-92 [facility] Serum or plasma aspartate am inotransferase measurement (enzymatic activity/volume)on 01-21-2021 AST [Catalytic activity/Vol] 17 U/L 10 [facility] Serum or plasma calcium ashwini urement (mass/volume)on 01-21-2021 Calcium [Mass/Vol] 9.5 mg/dL 8.2-10.2 [place] Serum or plasma chloride jett surement (moles/volume)on 01-21-2021 Chloride [Moles/Vol] 96 mmol/L 95-114 [facility] Serum or plasma glucose ashwini urement (mass/volume)on 01-21-2021 Glucose [Mass/Vol] 117 mg/dL 70-100 [place] Comment on above: ADA recommended refe rence rangeRandom Glucose Reference Range is dependent on time and content of last meal. Glucose of more than 200 mg/dL in a nonstressed, ambulatory subject supports the diagnosis of Diabetes Mellitus. Serum or plasma potassium me asurement (moles/volume)on 01-21-2021 Potassium [Moles/Vol] 4.3 mmol/L 3.5-5.1 [facility] Serum or plasma sodium measu rement (moles/volume)on 01-21-2021 Sodium [Moles/Vol] 132 mmol/L 136-146 [place] Serum or plasma total biliru bin measurement (mass/volume)on 01-21-2021 Bilirubin [Mass/Vol] 0.3 mg/dL 0.3-1.2 [facility] Serum or plasma total carbon dioxide measurement (moles/volume)on 01-21-2021 CO2 [Moles/Vol] 23.6 mmol/L 22.0-30.0 [facility] Serum or plasma urea nitroge n measurement (mass/volume)on 01-21-2021 Urea nitrogen [Mass/Vol] 13 mg/dL 9-23 [facility] Albumin [Mass/volume] in Ser um or Plasmaon 11-05-2020 Albumin [Mass/Vol] 4.4 g/dL 3.2-5.5 [place] Automated basophil %on 11-05 Basophils/100 WBC (Bld) 0.7 % [place] [facility] Automated basophil counton 0 11-05-2020 Basophils (Bld) [#/Vol] 0.1 10*3/uL 0.0-0.2 [facility] Automated blood lymphocyte c ount (number/volume)on 11-05-2020 Lymphocytes (Bld) [#/Vol] 3.5 10*3/uL 1.00-4.8 [facility] Automated blood lymphocyte c ount as percentage of total leukocyteson 11-05-2020 Lymphocytes/100 WBC (Bld) 26.0 % [facility] Automated blood monocyte cou nton 11-05-2020 Monocytes (Bld) [#/Vol] 1.2 10*3/uL 0.0-0.8 [facility] Automated blood platelet cou nt (count/volume)on 11-05-2020 Platelets (Bld) [#/Vol] 317 10*3/uL 150-450 [facility] Automated blood platelet jett n volume measurementon 11-05-2020 Platelet mean volume (Bld) [Entitic vol] 8.2 fL 6.3-10.7 [facility] Automated eosinophil %on Eosinophils/100 WBC (Bld) 0.5 % [facility] Automated eosinophil counton 11-05-2020 Eosinophils (Bld) [#/Vol] 0.1 10*3/uL 0.0-0.45 [facility] Automated erythrocyte distri bution width ratioon 11-05-2020 Erythrocyte distribution width (RBC) [Ratio] 13.0 % 11.9-15.3 [facility] Automated erythrocyte mean c orpuscular hemoglobin (mass per erythrocyte)on 11-05-2020 MCH (RBC) [Entitic mass] 30.2 pg 24.7-34.3 [facility] Automated erythrocyte mean c orpuscular hemoglobin concentration measurement (mass/volon 11-05-2020 MCHC (RBC) [Mass/Vol] 33.9 g/dL 32.0-35.0 [facility] Automated erythrocyte mean c orpuscular volumeon 11-05-2020 MCV (RBC) [Entitic vol] 89.1 fL 80-100 [facility] Automated monocyte %on 11-05 Monocytes/100 WBC (Bld) 8.8 % F [facility] Automated neutrophil %on Neutrophils/100 WBC (Bld) 64.0 % [facility] Blood erythrocytes automated count (number/volume)on 11-05-2020 RBC (Bld) [#/Vol] 4.92 10*6/uL 3.60-5.00 [facility] Blood hemoglobin measurement (mass/volume)on 11-05-2020 Hemoglobin (Bld) [Mass/Vol] 14.9 g/dL 11.8-15.4 [facility] Blood leukocytes automated c ount (number/volume)on 11-05-2020 WBC (Bld) [#/Vol] 13.4 10*3/uL 4.5-11.0 [facility] Blood neutrophil count by au tomated method (number/volume)on 11-05-2020 Neutrophils (Bld) [#/Vol] 8.6 10*3/uL 1.8-7.7 [facility] Estimated glomerular filtrat ion rate (GFR) non- Americanon 11-05-2020 GFR/1.73 sq M predicted among non-blacks MDRD (S/P/Bld) [Vol rate/Area] mL/min/{1.73_m2} [facility] Hematocrit [Volume Fraction] of Blood by Automated counton 11-05-2020 Hematocrit (Bld) [Volume fraction] 43.8 % 34.0-46.4 [facility] Otheron 11-05-2020 GFR/1.73 sq M.predicted MDRD (S/P/Bld) [Vol rate/Area] mL/min/{1.73_m2} [facility] Comment on above: GFR estimated refere nce range: According to KDOQI guidelines, <60 ml/min/1.73m2 is sufficient to diagnose a patient with chronic kidney disease. Nucleated RBC/100 WBC (Bld) [Ratio] 0.2 % 0-0.5 [facility] Pharmacy Creatinine Clearance (Chem N/A [facility] Protein [Mass/volume] in Ser um or Plasmaon 11-05-2020 Protein [Mass/Vol] 7.2 g/dL 6.1-7.9 [place] Serum globulin measurement b y calculation (mass/volume)on 11-05-2020 Globulin (S) [Mass/Vol] 2.8 g/dL [facility] [facility] glutamate decarboxylas e 65 antibody assay (units/volume)on 11-05-2020 Glutamate decarboxylase 65 Ab Qn (S) <5.0 U/mL [facility] Comment on above: Performed at: [employer] [facility] [employer] [id number] Director: Ana Lee MD, Phone: [phone] Serum nuclear antibody titer on 11-05-2020 Nuclear Ab (S) [Titer] Negative [facility] Comment on above: Negative <1:80 Borde rline 1:80 Positive >1:80Performed at: [employer] [place], [place] [id number] Director: Daniel Wen PhD, Phone: [phone] Nuclear Ab (S) [Titer] Negative [facility] Comment on above: Negative <1:80 Borde rline 1:80 Positive >1:80Performed at: [employer] [place], [place] [id number] Director: Daniel Wen PhD, Phone: [phone] Serum or plasma alanine george otransferase measurement without P-5'-P (enzymatic activion 11-05-2020 ALT No additional P-5'-P [Catalytic activity/Vol] 22 U/L 10-60 [facility] Serum or plasma albumin/glob ulin mass ratioon 11-05-2020 Albumin/Globulin [Mass ratio] 1.6 {ratio} [facility] Serum or plasma alkaline lalo sphatase measurement (enzymatic activity/volume)on 11-05-2020 ALP [Catalytic activity/Vol] 60 U/L 32-92 [facility] Serum or plasma aspartate am inotransferase measurement (enzymatic activity/volume)on 11-05-2020 AST [Catalytic activity/Vol] 23 U/L 10-42 [facility] Serum or plasma calcium ashwini urement (mass/volume)on 11-05-2020 Calcium [Mass/Vol] 9.6 mg/dL 8.2-10.2 [place] Serum or plasma chloride jett surement (moles/volume)on 11-05-2020 Chloride [Moles/Vol] 93 mmol/L 95-114 [facility] Serum or plasma creatinine m easurement with calculation of estimated glomerular filtron 11-05-2020 Creatinine [Mass/Vol] 0.62 mg/dL 0.44-1.03 [facility] Serum or plasma glucose ashwini urement (mass/volume)on 11-05-2020 Glucose [Mass/Vol] 82 mg/dL 70-100 [place] Comment on above: ADA recommended refe rence rangeRandom Glucose Reference Range is dependent on time and content of last meal. Glucose of more than 200 mg/dL in a nonstressed, ambulatory subject supports the diagnosis of Diabetes Mellitus. Serum or plasma potassium me asurement (moles/volume)on 11-05-2020 Potassium [Moles/Vol] 4.3 mmol/L 3.5-5.1 [facility] Serum or plasma sodium measu rement (moles/volume)on 11-05-2020 Sodium [Moles/Vol] 128 mmol/L 136-146 [place] Serum or plasma total biliru bin measurement (mass/volume)on 11-05-2020 Bilirubin [Mass/Vol] 0.6 mg/dL 0.3-1.2 [facility] Serum or plasma total carbon dioxide measurement (moles/volume)on 11-05-2020 CO2 [Moles/Vol] 22.8 mmol/L 22.0-30.[address] [facility] Serum or plasma urea nitroge n measurement (mass/volume)on 11-05-2020 Urea nitrogen [Mass/Vol] 10 mg/dL 9-23 [facility] Automated basophil %on 10-22 Basophils/100 WBC (Bld) 0.6 % F [facility] Automated basophil counton 0 10-22-2020 Basophils (Bld) [#/Vol] 0.1 10*3/uL 0.0-0.2 [facility] Automated blood lymphocyte c ount (number/volume)on 10-22-2020 Lymphocytes (Bld) [#/Vol] 2.8 10*3/uL 1.00-4.8 [facility] Automated blood lymphocyte c ount as percentage of total leukocyteson 10-22-2020 Lymphocytes/100 WBC (Bld) 23.6 % [facility] Automated blood monocyte cou nton 10-22-2020 Monocytes (Bld) [#/Vol] 1.0 10*3/uL 0.0-0.8 [facility] Automated blood platelet cou nt (count/volume)on 10-22-2020 Platelets (Bld) [#/Vol] 292 10*3/uL 150-450 [facility] Automated blood platelet jett n volume measurementon 10-22-2020 Platelet mean volume (Bld) [Entitic vol] 9.4 fL 6.3-10.7 [facility] Automated eosinophil %on Eosinophils/100 WBC (Bld) 0.5 % [facility] Automated eosinophil counton 10-22-2020 Eosinophils (Bld) [#/Vol] 0.1 10*3/uL 0.0-0.45 [facility] Automated erythrocyte distri bution width ratioon 10-22-2020 Erythrocyte distribution width (RBC) [Ratio] 12.8 % 11.9-15.3 [facility] Automated erythrocyte mean c orpuscular hemoglobin (mass per erythrocyte)on 10-22-2020 MCH (RBC) [Entitic mass] 29.5 pg 24.7-34.3 [facility] Automated erythrocyte mean c orpuscular hemoglobin concentration measurement (mass/volon 10-22-2020 MCHC (RBC) [Mass/Vol] 32.9 g/dL 32.0-35.0 [facility] Automated erythrocyte mean c orpuscular volumeon 10-22-2020 MCV (RBC) [Entitic vol] 89.6 fL 80-100 F [facility] Automated monocyte %on 10-22 Monocytes/100 WBC (Bld) 8.7 % F [facility] Automated neutrophil %on Neutrophils/100 WBC (Bld) 66.6 % [facility] Blood erythrocytes automated count (number/volume)on 10-22-2020 RBC (Bld) [#/Vol] 4.90 10*6/uL 3.60-5.00 [facility] Blood hemoglobin measurement (mass/volume)on 10-22-2020 Hemoglobin (Bld) [Mass/Vol] 14.5 g/dL 11.8-15.4 [facility] Blood leukocytes automated c ount (number/volume)on 10-22-2020 WBC (Bld) [#/Vol] 12.1 10*3/uL 3.8-11.6 [facility] Blood neutrophil count by au tomated method (number/volume)on 10-22-2020 Neutrophils (Bld) [#/Vol] 8.0 10*3/uL 1.8-7.7 [facility] Body fluid albumin measureme nt (mass/volume)on 10-22-2020 Albumin (Body fld) [Mass/Vol] 4.2 g/dL 3.2-5.5 [facility] Estimated glomerular filtrat ion rate (GFR) non- Americanon 10-22-2020 GFR/1.73 sq M predicted among non-blacks MDRD (S/P/Bld) [Vol rate/Area] mL/min/{1.73_m2} [facility] Hematocrit [Volume Fraction] of Blood by Automated counton 10-22-2020 Hematocrit (Bld) [Volume fraction] 43.9 % 34.0-46.4 [facility] Hematologyon 10-22-2020 Platelets (Bld) [#/Vol] Normal Normal F [facility] Otheron 10-22-2020 25-Hydroxy Vitamin D Total 13.3 ng/mL 30-100 [facility] Comment on above: VITAMIN D STATUS 25( [place])VITAMIN D RANGE (ng/mL) Deficient <20 Insufficient 20 to <30Sufficient 30 to 100Reference: Jovanni MF,Dominique NC, Gillian NINA, et al. Evaluation,treatment, and prevention of vitamin D deficiency; an Endocrine Society clinical practice guideline. JCEM. 2010; 96(7):1911-30. Cobalamin (Vitamin B12) [Mass/Vol] 438 pg/mL 180-914 [facility] GFR/1.73 sq M.predicted MDRD (S/P/Bld) [Vol rate/Area] mL/min/{1.73_m2} [facility] Comment on above: GFR estimated refere nce range: According to KDOQI guidelines, <60 ml/min/1.73m2 is sufficient to diagnose a patient with chronic kidney disease. Nucleated RBC/100 WBC (Bld) [Ratio] 0.0 % 0-0.5 [facility] Creatinine Clearance (Chem N/A [facility] Platelet Morphology Comment Normal Normal [facility] Valproic Acid (Depakene) Level 108.9 ug/mL 50.0-100.0 [facility] Comment on above: Last dose: - Protein [Mass/volume] in Ser um or Plasmaon 10-22-2020 Protein [Mass/Vol] 7.1 g/dL 6.1-7.9 [place] RBC morphologyon 10-22-2020 RBC morphology finding Nom (Bld) Normal [facility] Serum globulin measurement b y calculation (mass/volume)on 10-22-2020 Globulin (S) [Mass/Vol] 2.9 g/dL F [facility] Serum or plasma alanine george otransferase measurement without P-5'-P (enzymatic activion 10-22-2020 ALT No additional P-5'-P [Catalytic activity/Vol] 13 U/L 10-60 [facility] Serum or plasma albumin/glob ulin mass ratioon 10-22-2020 Albumin/Globulin [Mass ratio] 1.4 {ratio} [facility] Serum or plasma alkaline lalo sphatase measurement (enzymatic activity/volume)on 10-22-2020 ALP [Catalytic activity/Vol] 53 U/L 32-92 [facility] Serum or plasma aspartate am inotransferase measurement (enzymatic activity/volume)on 10-22-2020 AST [Catalytic activity/Vol] 15 U/L 10-42 [facility] Serum or plasma calcium ashwini urement (mass/volume)on 10-22-2020 Calcium [Mass/Vol] 9.6 mg/dL 8.2-10.2 [place] Serum or plasma chloride jett surement (moles/volume)on 10-22-2020 Chloride [Moles/Vol] 96 mmol/L 95-114 [facility] Serum or plasma creatinine m easurement with calculation of estimated glomerular filtron 10-22-2020 Creatinine [Mass/Vol] 0.54 mg/dL 0.44-1.03 [facility] Serum or plasma glucose ashwini urement (mass/volume)on 10-22-2020 Glucose [Mass/Vol] 96 mg/dL 70-100 [place] Comment on above: ADA recommended refe rence rangeRandom Glucose Reference Range is dependent on time and content of last meal. Glucose of more than 200 mg/dL in a nonstressed, ambulatory subject supports the diagnosis of Diabetes Mellitus. Serum or plasma potassium me asurement (moles/volume)on 10-22-2020 Potassium [Moles/Vol] 4.7 mmol/L 3.5-5.1 [facility] Serum or plasma sodium measu rement (moles/volume)on 10-22-2020 Sodium [Moles/Vol] 130 mmol/L 136-146 [place] Serum or plasma total biliru bin measurement (mass/volume)on 10-22-2020 Bilirubin [Mass/Vol] 0.3 mg/dL 0.3-1.2 [facility] Serum or plasma total carbon dioxide measurement (moles/volume)on 10-22-2020 CO2 [Moles/Vol] 22.5 mmol/L 22.0-30.[address] [facility] Serum or plasma urea nitroge n measurement (mass/volume)on 10-22-2020 Urea nitrogen [Mass/Vol] 5 mg/dL 06-26 [facility] Automated basophil %on 09-23 Basophils/100 WBC (Bld) 0.7 % F [facility] Automated basophil counton 1 11-24-2019 Basophils (Bld) [#/Vol] 0.1 10*3/uL 0.0-0.2 [facility] Automated blood lymphocyte c ount (number/volume)on 09-23-2020 Lymphocytes (Bld) [#/Vol] 3.3 10*3/uL 1.00-4.8 [facility] Automated blood lymphocyte c ount as percentage of total leukocyteson 09-23-2020 Lymphocytes/100 WBC (Bld) 27.3 % [facility] Automated blood monocyte cou nton 09-23-2020 Monocytes (Bld) [#/Vol] 1.3 10*3/uL 0.0-0.8 [facility] Automated blood platelet cou nt (count/volume)on 09-23-2020 Platelets (Bld) [#/Vol] 299 10*3/uL 150-450 [facility] Automated blood platelet jett n volume measurementon 09-23-2020 Platelet mean volume (Bld) [Entitic vol] 8.3 fL 6.3-10.7 [facility] Automated eosinophil %on Eosinophils/100 WBC (Bld) 0.7 % [facility] Automated eosinophil counton 09-23-2020 Eosinophils (Bld) [#/Vol] 0.1 10*3/uL 0.0-0.45 [facility] Automated erythrocyte distri bution width ratioon 09-23-2020 Erythrocyte distribution width (RBC) [Ratio] 12.8 % 11.9-15.3 [facility] Automated erythrocyte mean c orpuscular hemoglobin (mass per erythrocyte)on 09-23-2020 MCH (RBC) [Entitic mass] 29.8 pg 24.7-34.3 [facility] Automated erythrocyte mean c orpuscular hemoglobin concentration measurement (mass/volon 09-23-2020 MCHC (RBC) [Mass/Vol] 33.4 g/dL 32.0-35.0 [facility] Automated erythrocyte mean c orpuscular volumeon 09-23-2020 MCV (RBC) [Entitic vol] 89.3 fL 80-100 F [facility] Automated monocyte %on 09-23 Monocytes/100 WBC (Bld) 10.8 % F [facility] Automated neutrophil %on Neutrophils/100 WBC (Bld) 60.5 % [facility] Blood erythrocytes automated count (number/volume)on 09-23-2020 RBC (Bld) [#/Vol] 4.72 10*6/uL 3.60-5.00 [facility] Blood hemoglobin measurement (mass/volume)on 09-23-2020 Hemoglobin (Bld) [Mass/Vol] 14.1 g/dL 11.8-15.4 [facility] Blood leukocytes automated c ount (number/volume)on 09-23-2020 WBC (Bld) [#/Vol] 11.9 10*3/uL 3.8-11.6 [facility] Blood neutrophil count by au tomated method (number/volume)on 09-23-2020 Neutrophils (Bld) [#/Vol] 7.2 10*3/uL 1.8-7.7 [facility] Body fluid albumin measureme nt (mass/volume)on 09-23-2020 Albumin (Body fld) [Mass/Vol] 3.9 g/dL 3.2-5.5 [facility] Estimated glomerular filtrat ion rate (GFR) non- Americanon 09-23-2020 GFR/1.73 sq M predicted among non-blacks MDRD (S/P/Bld) [Vol rate/Area] mL/min/{1.73_m2} [facility] Hematocrit [Volume Fraction] of Blood by Automated counton 09-23-2020 Hematocrit (Bld) [Volume fraction] 42.1 % 34.0-46.4 [facility] Otheron 09-23-2020 25-Hydroxy Vitamin D Total 17.0 ng/mL 30-100 [facility] Comment on above: VITAMIN D STATUS 25( [place])VITAMIN D RANGE (ng/mL) Deficient <20 Insufficient 20 to <30Sufficient 30 to 100Reference: Jovanni MF,Dominique NC, Gillian NINA, et al. Evaluation,treatment, and prevention of vitamin D deficiency; an Endocrine Society clinical practice guideline. JCEM. 2010; 96(7):1911-30. GFR/1.73 sq M.predicted MDRD (S/P/Bld) [Vol rate/Area] mL/min/{1.73_m2} [facility] Comment on above: GFR estimated refere nce range: According to KDOQI guidelines, <60 ml/min/1.73m2 is sufficient to diagnose a patient with chronic kidney disease. Nucleated RBC/100 WBC (Bld) [Ratio] 0.1 % 0-0.5 [facility] Creatinine Clearance (Chem N/A [facility] Valproic Acid (Depakene) Level 45.9 ug/mL 50.0-100.0 [facility] Comment on above: Last dose: - Protein [Mass/volume] in Ser um or Plasmaon 09-23-2020 Protein [Mass/Vol] 6.7 g/dL 6.1-7.9 [place] Serum globulin measurement b y calculation (mass/volume)on 09-23-2020 Globulin (S) [Mass/Vol] 2.8 g/dL F [facility] Serum or plasma alanine george otransferase measurement without P-5'-P (enzymatic activion 09-23-2020 ALT No additional P-5'-P [Catalytic activity/Vol] 15 U/L 10-60 [facility] Serum or plasma albumin/glob ulin mass ratioon 09-23-2020 Albumin/Globulin [Mass ratio] 1.4 {ratio} [facility] Serum or plasma alkaline lalo sphatase measurement (enzymatic activity/volume)on 09-23-2020 ALP [Catalytic activity/Vol] 52 U/L 32-92 [facility] Serum or plasma aspartate am inotransferase measurement (enzymatic activity/volume)on 09-23-2020 AST [Catalytic activity/Vol] 16 U/L 10-42 [facility] Serum or plasma calcium ashwini urement (mass/volume)on 09-23-2020 Calcium [Mass/Vol] 9.2 mg/dL 8.2-10.2 [place] Serum or plasma chloride jett surement (moles/volume)on 09-23-2020 Chloride [Moles/Vol] 102 mmol/L 95-114 [facility] Serum or plasma creatinine m easurement with calculation of estimated glomerular filtron 09-23-2020 Creatinine [Mass/Vol] 0.67 mg/dL 0.44-1.03 [facility] Serum or plasma glucose ashwini urement (mass/volume)on 09-23-2020 Glucose [Mass/Vol] 122 mg/dL 70-100 [place] Comment on above: ADA recommended refe rence rangeRandom Glucose Reference Range is dependent on time and content of last meal. Glucose of more than 200 mg/dL in a nonstressed, ambulatory subject supports the diagnosis of Diabetes Mellitus. Serum or plasma potassium me asurement (moles/volume)on 09-23-2020 Potassium [Moles/Vol] 4.8 mmol/L 3.5-5.1 [facility] Serum or plasma sodium measu rement (moles/volume)on 09-23-2020 Sodium [Moles/Vol] 136 mmol/L 136-146 [place] Serum or plasma total biliru bin measurement (mass/volume)on 09-23-2020 Bilirubin [Mass/Vol] 0.2 mg/dL 0.3-1.2 [facility] Serum or plasma total carbon dioxide measurement (moles/volume)on 09-23-2020 CO2 [Moles/Vol] 23.0 mmol/L 22.0-30.[address] [facility] Serum or plasma urea nitroge n measurement (mass/volume)on 09-23-2020 Urea nitrogen [Mass/Vol] 5 mg/dL - [facility] Lab - Other Lab Resultson Lab - Other Lab Results [id number]#[id number] Normal [facility] Coding Summaryon 06-27-2019 Coding Summary CODING DATE: 019 [facility] STATUS: Home PAYOR: Medicaid HMO ADMIT DX: [...] Piña Revised Date Saved: 06/27/2019 12:43 pm [facility] Provider Orderson 06-27-2019 Provider Orders [id number][id number] [id number][facility] .Auto Diff 1on 06-26-2019 Auto Holt % 9 % Normal -12 [facility] Comment on above: Performed By: #### 1 [id number] #### [facility] (DEFAULT) [address] [place] [address] 69880 Baso Abs# 0.0 x10 Normal 0.0-0.2 [facility] Comment on above: Performed By: #### 1 [id number], [id number] #### [facility] (DEFAULT) [address] [place] [address] 46547 Basophils/100 WBC (Bld) 0.3 % Normal 0.2-2.0 [facility] Comment on above: Performed By: #### 1 [id number], [id number] #### [facility] (DEFAULT) [address] [place] [address] 48296 Eos Abs# 0.0 x10 Normal 0.0-0.4 [facility] Comment on above: Performed By: #### 1 [id number], [id number] #### [facility] (DEFAULT) [address] [place] [address] 09075 Eosinophils/100 WBC (Bld) 0.4 % Low 0.9-4.0 [facility] Comment on above: Performed By: #### 1 [id number], [id number] #### [facility] (DEFAULT) [address] [place] [address] 39093 Lymphocytes (Bld) [#/Vol] 3.7 x10 High 1.3-2.9 [facility] Comment on above: Performed By: #### 1 [id number] #### [facility] (DEFAULT) [address] [place] [address] Lymphocytes/100 WBC (Bld) 29 % Normal 14-48 [facility] Comment on above: Performed By: #### 1 [id number], [id number] #### [facility] (DEFAULT) [address] [place] [address] Holt Abs# 1.2 x10 High 0.0-0.8 [facility] Comment on above: Performed By: #### 1 [id number], [id number] #### [facility] (DEFAULT) [address] [place] [address] Neut Abs# 7.7 x10 Normal 1.5-9.2 [facility] Comment on above: Performed By: #### 1 [id number], [id number] #### [facility] (DEFAULT) [address] [place] [address] Neutrophils/100 WBC (Bld) 61 % Normal 44-88 [facility] Comment on above: Performed By: #### 1 [id number], [id number] #### [facility] (DEFAULT) [address] [place] [address] CBC w/ Auto Diffon 9 Erythrocyte distribution width (RBC) [Ratio] 14.0 % Normal 11.5-15.0 [facility] Comment on above: Performed By: #### 1 [id number], [id number] #### [facility] (DEFAULT) [address] [place] [address] Hematocrit (Bld) [Volume fraction] 44.8 % High 33.7-40.4 [facility] Comment on above: Performed By: #### 1 [id number], [id number] #### [facility] (DEFAULT) [address] [place] [address] Hemoglobin (Bld) [Mass/Vol] 15.1 g/dL Normal 11.3-15.9 [facility] Comment on above: Performed By: #### 1 [id number], [id number] #### [facility] (DEFAULT) [address] [place] [address] 89361 Man Diff? Auto Normal [facility] Comment on above: Performed By: #### 1 [id number], [id number] #### [facility] (DEFAULT) [address] [place] [address] 49244 MCH (RBC) [Entitic mass] 30 pg Normal 24-34 [facility] Comment on above: Performed By: #### 1 [id number], [id number] #### [facility] (DEFAULT) [address] [place] [address] 71351 MCHC (RBC) [Mass/Vol] 34 g/dL Normal 26-37 [facility] Comment on above: Performed By: #### 1 [id number] #### [facility] (DEFAULT) [address] [place] [address] 34992 MCV (RBC) [Entitic vol] 89 fL Normal 81-100 [facility] Comment on above: Performed By: #### 1 [id number], [id number] #### [facility] (DEFAULT) [address] [place] [address] 02565 Platelet mean volume (Bld) [Entitic vol] 9.5 fL Normal 6.3-10.2 [facility] Comment on above: Performed By: #### 1 [id number], [id number] #### [facility] (DEFAULT) [address] [place] [address] 97840 Platelets (Bld) [#/Vol] 301 x10 Normal 138-427 [facility] Comment on above: Performed By: #### 1 [id number], [id number] #### [facility] (DEFAULT) [address] [place] [address] 04064 RBC (Bld) [#/Vol] 5.04 x10 Normal 3.70-5.30 [facility] Comment on above: Performed By: #### 1 [id number], [id number] #### [facility] (DEFAULT) [address] [place] [address] 94755 WBC (Bld) [#/Vol] 12.6 x10 [facility] Comment on above: Performed By: #### 1 [id number], [id number] #### [facility] (DEFAULT) [address] [id number] Lab - Other Lab Resultson Lab - Other Lab Results [id number]#[facility] 05-16-2019 Outside Records [id number]#[facility] Outside Records [id number]#[facility] Vital Signs Date Time Vital Sign Value Performing Clinician Facility 03-16-2024 09:55-0400 Diastolic blood pressure 87 mm[Hg] PANEL [facility]UER-C Ajit Spasic Work Phone: [facility] 03-16-2024 09:55-0400 Heart rate 66 /min [facility] Ajit Spasic Work Phone: [facility] 03-16-2024 09:55-0400 Respiratory rate 20 /min [facility] Ajit Spasic Work Phone: [facility] 03-16-2024 09:55-0400 SaO2% (BldA) [Mass fraction] 99 % [facility] Ajit Spasic Work Phone: [facility] 03-16-2024 09:55-0400 Systolic blood pressure 138 mm[Hg] PANEL [facility]UER-C Ajit Spasic Work Phone: [facility] 03-16-2024 07:01-0400 Body height 166.37 cm [facility]EL [facility]C Ajit Spasic Work Phone: [facility] 03-16-2024 07:01-0400 Body temperature 98.3 [degF] PAN[facility]C Ajit Spasic Work Phone: [facility] 03-16-2024 07:01-0400 Body weight 69.85 kg [facility]EL [facility]C Ajit Spasic Work Phone: [facility] 03-08-2024 14:14-0400 Diastolic blood pressure 70 mm[Hg] PANEL GLUER-C Ajit Spasic Work Phone: [facility] 03-08-2024 14:14-0400 Heart rate 95 /min [facility]C Ajit Spasic Work Phone: [facility] 03-08-2024 14:14-0400 SaO2% (BldA) [Mass fraction] 99 % [facility]C Ajit Spasic Work Phone: [facility] 03-08-2024 14:14-0400 Systolic blood pressure 122 mm[Hg] [facility]-C Jait Spasic Work Phone: 6(655)[phone] [place] [address] 03-01-2024 12:19-0400 Diastolic blood pressure 75 mm[Hg] PANEL [facility]UER-C Ajit Spasic Work Phone: [facility] 03-01-2024 12:19-0400 Heart rate 69 /min [facility]C Ajit Spasic Work Phone: [facility] 03-01-2024 12:19-0400 Inhaled oxygen flow rate 3 L/min [facility] Ajit Spasic Work Phone: [facility] 03-01-2024 12:19-0400 SaO2% (BldA) [Mass fraction] 100 % [facility] Ajit Spasic Work Phone: [facility] 03-01-2024 12:19-0400 Systolic blood pressure 130 mm[Hg] PANEL [facility]ER-C Ajit Spasic Work Phone: [phone](580)064-053367 [place] [address] 03-01-2024 12:13-0400 Respiratory rate 18 /min [facility] Ajit Spasic Work Phone: 6(237)[phone] [place] [address] 03-01-2024 09:54-0400 Body height 166.37 cm [facility] Ajit Spasic Work Phone: 8(988)[phone] [place] [address] 03-01-2024 09:54-0400 Body weight 69.85 kg PANEL [facility]UER-C Ajit Spasic Work Phone: [facility] 02-21-2024 10:41-0400 Body weight 69.11 kg PANEL [facility]UER-C Ajit Spasic Work Phone: [facility] 02-21-2024 10:41-0400 Diastolic blood pressure 80 mm[Hg] PANEL GLUER-C Ajit Spasic Work Phone: [facility] 02-21-2024 10:41-0400 Systolic blood pressure 124 mm[Hg] PANEL GLUER-C Ajit Spasic Work Phone: [facility] 10-16-2023 13:00-0500 Diastolic blood pressure 94 mm[Hg] PANEL GLUER-C Ajit Spasic Work Phone: [facility] 10-16-2023 13:00-0500 Heart rate 70 /min [facility]-C Ajit Spasic Work Phone: [facility] 10-16-2023 13:00-0500 Respiratory rate 16 /min [facility]C Ajit Spasic Work Phone: [facility] 10-16-2023 13:00-0500 SaO2% (BldA) [Mass fraction] 97 % PAN[facility]-C Ajit Spasic Work Phone: [facility] 10-16-2023 13:00-0500 Systolic blood pressure 168 mm[Hg] PANEL GLUER-C Ajit Spasic Work Phone: [facility] 10-16-2023 09:33-0500 Body height 165.1 cm PANEL GLUER-C Ajit Spasic Work Phone: [facility] 10-16-2023 09:33-0500 Body temperature 97.4 [degF] PANEL GLUER-C Ajit Spasic Work Phone: [facility] 10-16-2023 09:33-0500 Body weight 77.3 kg PANEL GLUER-C Ajit Spasic Work Phone: [facility] 10-09-2023 16:00-0500 Body temperature 97.7 [degF] PANEL GLUER-C Ajit Spasic Work Phone: [facility] 10-09-2023 16:00-0500 Diastolic blood pressure 80 mm[Hg] PANEL GLUER-C Ajit Spasic Work Phone: [facility] 10-09-2023 16:00-0500 Heart rate 85 /min PANEL GLUER-C Ajit Spasic Work Phone: [facility] 10-09-2023 16:00-0500 Respiratory rate 18 /min PANEL GLUER-C Ajit Spasic Work Phone: [facility] 10-09-2023 16:00-0500 SaO2% (BldA) [Mass fraction] 99 % PANEL GLUER-C Ajit Spasic Work Phone: [facility] 10-09-2023 16:00-0500 Systolic blood pressure 117 mm[Hg] PANEL GLUER-C Ajit Spasic Work Phone: [facility] 10-08-2023 01:12-0500 Body height 165.1 cm PANEL GLUER-C Ajit Spasic Work Phone: [facility] 10-08-2023 01:12-0500 Body weight 76.65 kg PANEL GLUER-C Ajit Spasic Work Phone: [facility] 09-28-2023 13:30-0500 Diastolic blood pressure 87 mm[Hg] PANEL GLUER-C Ajit Spasic Work Phone: [phone] [place] [address] 09-28-2023 13:30-0500 Heart rate 94 /min PANEL GLUER-C Ajit Spasic Work Phone: [facility] 09-28-2023 13:30-0500 Respiratory rate 18 /min PANEL GLUER-C Ajit Spasic Work Phone: [facility] 09-28-2023 13:30-0500 SaO2% (BldA) [Mass fraction] 94 % PANEL GLUER-C Ajit Spasic Work Phone: [facility] 09-28-2023 13:30-0500 Systolic blood pressure 131 mm[Hg] PANEL GLUER-C Ajit Spasic Work Phone: [facility] 09-28-2023 09:30-0500 Body temperature 97.9 [degF] PANEL GLUER-C Ajit Spasic Work Phone: [facility] 09-28-2023 08:51-0500 Inhaled oxygen flow rate 10 L/min PANEL GLUER-C Ajit Spasic Work Phone: [facility] 09-28-2023 07:20-0500 Body height 166.37 cm PANEL GLUER-C Ajit Spasic Work Phone: [facility] 09-28-2023 07:20-0500 Body mass index (BMI) [Ratio] 27.7 kg/m2 PANEL GLUER-C Ajit Spasic Work Phone: [facility] 09-28-2023 07:20-0500 Body weight 76.7 kg PANEL GLUER-C Ajit Spasic Work Phone: [facility] 07-13-2023 13:55-0400 Diastolic blood pressure 93 mm[Hg] NA [employer] Work Phone: [facility] 07-13-2023 13:55-0400 Heart rate 87 /min NA [employer] Work Phone: [facility] 07-13-2023 13:55-0400 Respiratory rate 16 /min NA [employer] Work Phone: [facility] 07-13-2023 13:55-0400 SaO2% (BldA) [Mass fraction] 96 % NA [employer] Work Phone: [facility] 07-13-2023 13:55-0400 Systolic blood pressure 133 mm[Hg] NA [employer] Work Phone: [facility] 07-13-2023 13:16-0400 Body temperature 98 [degF] NA [employer] Work Phone: [facility] 07-13-2023 12:51-0400 Inhaled oxygen flow rate 10 L/min NA [employer] Work Phone: [facility] 07-13-2023 12:17-0400 Body height 165.1 cm NA [employer] Work Phone: [facility] 07-13-2023 12:17-0400 Body mass index (BMI) [Ratio] 28.2 kg/m2 NA [employer] Work Phone: [facility] 07-13-2023 12:17-0400 Body weight 77 kg NA [employer] Work Phone: [facility] 05-05-2023 10:18-0400 Diastolic blood pressure 90 mm[Hg] PANEL GLUER-C Ajit Spasic Work Phone: [facility] 05-05-2023 10:18-0400 Heart rate 82 /min PANEL GLUER-C Ajit Spasic Work Phone: [facility] 05-05-2023 10:18-0400 Respiratory rate 18 /min PANEL GLUER-C Ajit Spasic Work Phone: [facility] 05-05-2023 10:18-0400 SaO2% (BldA) [Mass fraction] 98 % PANEL GLUER-C Ajit Spasic Work Phone: [facility] 05-05-2023 10:18-0400 Systolic blood pressure 130 mm[Hg] PANEL GLUER-C Ajit Spasic Work Phone: [facility] 05-05-2023 09:39-0400 Inhaled oxygen flow rate 3 L/min PANEL GLUER-C Ajit Spasic Work Phone: [facility] 05-05-2023 08:43-0400 Body height 165.1 cm PANEL GLUER-C Ajit Spasic Work Phone: [facility] 05-05-2023 08:43-0400 Body weight 74.84 kg PANEL GLUER-C Ajit Spasic Work Phone: [facility] 04-14-2023 12:08-0400 Diastolic blood pressure 89 mm[Hg] PANEL GLUER-C Ajit Spasic Work Phone: [facility] 04-14-2023 12:08-0400 Heart rate 71 /min PANEL GLUER-C Ajit Spasic Work Phone: [facility] 04-14-2023 12:08-0400 Respiratory rate 16 /min PANEL GLUER-C Ajit Spasic Work Phone: [facility] 04-14-2023 12:08-0400 SaO2% (BldA) [Mass fraction] 97 % PANEL GLUER-C Ajit Spasic Work Phone: [facility] 04-14-2023 12:08-0400 Systolic blood pressure 124 mm[Hg] PANEL GLUER-C Ajit Spasic Work Phone: [facility] 04-14-2023 11:29-0400 Inhaled oxygen flow rate 3 L/min PANEL GLUER-C Ajit Spasic Work Phone: [facility] 04-14-2023 10:19-0400 Body height 165.1 cm PANEL GLUER-C Ajit Spasic Work Phone: [facility] 04-14-2023 10:19-0400 Body weight 74.84 kg PANEL GLUER-C Ajit Spasic Work Phone: [facility] 04-02-2023 11:30-0400 Body height 166.37 cm Kyler Miramontes Other [facility] [employer] Other 04-02-2023 11:30-0400 Body mass index (BMI) [Ratio] 27.04 kg/m2 Kyler Miramontes Other [employer] Other 04-02-2023 11:30-0400 Body weight 74.84 kg Kyler Miramontes Other [employer] Other 04-02-2023 11:30-0400 Diastolic blood pressure 80 mm[Hg] Kyler Miramontes Other [employer] Other 04-02-2023 11:30-0400 Systolic blood pressure 110 mm[Hg] Kyler Miramontes Other [employer] Other 11-18-2022 11:59-0500 Diastolic blood pressure 94 mm[Hg] Services [employer] Work Phone: [facility] 11-18-2022 11:59-0500 Heart rate 85 /min Services [facility] [employer] Work Phone: [facility] 11-18-2022 11:59-0500 Respiratory rate 16 /min Services [facility] [employer] Work Phone: [facility] 11-18-2022 11:59-0500 SaO2% (BldA) [Mass fraction] 98 % Services [facility] [employer] Work Phone: [facility] 11-18-2022 11:59-0500 Systolic blood pressure 140 mm[Hg] Services [facility] [employer] Work Phone: [facility] 11-18-2022 11:21-0500 Inhaled oxygen flow rate 3 L/min Services [facility] [employer] Work Phone: [facility] 11-18-2022 09:23-0500 Body height 166.37 cm Services [facility] [employer] Work Phone: [facility] 11-18-2022 09:23-0500 Body weight 74.38 kg Services [facility] [employer] Work Phone: [facility] 11-03-2022 11:30-0500 Body height 166.37 cm Kyler Miramontes Other [facility] [employer] Other 11-03-2022 11:30-0500 Diastolic blood pressure 80 mm[Hg] Kyler Miramontes Other [employer] Other 11-03-2022 11:30-0500 SaO2% (BldA) [Mass fraction] 98 % Kyler Miramontes Other [facility] [employer] Other 11-03-2022 11:30-0500 Systolic blood pressure 118 mm[Hg] Kyler Miramontes Other [facility] [employer] Other 07-31-2022 11:50-0400 Blood Pressure Location [employer] [facility] 07-31-2022 11:50-0400 Diastolic blood pressure 82 mm[Hg] [employer] [facility] 07-31-2022 11:50-0400 Heart rate 70 /min [employer] [facility] 07-31-2022 11:50-0400 Respiratory rate 16 /min [employer] [facility] 07-31-2022 11:50-0400 Systolic blood pressure 136 mm[Hg] Joshua [employer] [facility] 05-27-2022 09:13-0400 Body temperature 97.9 [degF] [facility] [employer] Work Phone: [facility] 05-27-2022 09:13-0400 Body weight 77.11 kg [facility] [employer] Work Phone: [facility] 05-27-2022 09:13-0400 Diastolic blood pressure 82 mm[Hg] [facility] Work Phone: [facility] 05-27-2022 09:13-0400 Heart rate 70 /min Services [facility] Work Phone: [facility] 05-27-2022 09:13-0400 Respiratory rate 20 /min Services [facility] Work Phone: [facility] 05-27-2022 09:13-0400 SaO2% (BldA) [Mass fraction] 98 % Services [facility] Work Phone: [facility] 05-27-2022 09:13-0400 Systolic blood pressure 121 mm[Hg] Services [facility] Work Phone: [facility] 05-27-2022 08:06-0400 Body height 166.37 cm Services [facility] Work Phone: [facility] 05-01-2022 22:19-0400 Diastolic blood pressure 70 mm[Hg] [facility] Work Phone: [facility] 05-01-2022 22:19-0400 Heart rate 86 /min Services [facility] Work Phone: [facility] 05-01-2022 22:19-0400 Respiratory rate 18 /min Services [facility] Work Phone: [facility] 05-01-2022 22:19-0400 SaO2% (BldA) [Mass fraction] 99 % Services [facility] Work Phone: [facility] 05-01-2022 22:19-0400 Systolic blood pressure 138 mm[Hg] Services [facility] Work Phone: [facility] 05-01-2022 17:09-0400 Body height 166.37 cm Services [facility] Work Phone: [facility] 05-01-2022 17:09-0400 Body temperature 99.4 [degF] Services [facility] Work Phone: [facility] 05-01-2022 17:09-0400 Body weight 77.8 kg Services [facility] [employer] [facility] Work Phone: [facility] 04-29-2022 14:29-0400 Body height 165.1 cm Services [facility] [employer] [facility] Work Phone: [facility] 04-29-2022 14:29-0400 Body temperature 97.8 [degF] Services [facility] [employer] [facility] Work Phone: [facility] 04-29-2022 14:29-0400 Body weight 68.03 kg Services [facility] Work Phone: [facility] 04-29-2022 14:29-0400 Diastolic blood pressure 83 mm[Hg] Services [facility] [employer] Work Phone: [facility] 04-29-2022 14:29-0400 Heart rate 70 /min Services [facility] [employer] Work Phone: [facility] 04-29-2022 14:29-0400 Respiratory rate 16 /min Services [facility] [employer] Work Phone: [facility] 04-29-2022 14:29-0400 SaO2% (BldA) [Mass fraction] 100 % Services [facility] [employer] Work Phone: [facility] 04-29-2022 14:29-0400 Systolic blood pressure 131 mm[Hg] Services [facility] [employer] Work Phone: [facility] 02-19-2022 15:45-0400 Body height 166.37 cm Kyler Miramontes Other [facility] [employer] Other 02-19-2022 15:45-0400 Body mass index (BMI) [Ratio] 27.36 kg/m2 Kyler Miramontes Other [employer] Other 02-19-2022 15:45-0400 Body weight 75.75 kg Kyler Miramontes Other [employer] Other 02-19-2022 15:45-0400 Diastolic blood pressure 64 mm[Hg] Kyler Miramontes Other [employer] Other 02-19-2022 15:45-0400 Systolic blood pressure 110 mm[Hg] Kyler Miramontes Other [employer] Other 01-28-2022 14:00-0400 Body height 166.37 cm Kyler Miramontes Other [employer] Other 01-28-2022 14:00-0400 Body mass index (BMI) [Ratio] 27.27 kg/m2 Kyler Miramontes Other [employer] Other 01-28-2022 14:00-0400 Body weight 75.48 kg Kyler Miramontes Other [employer] Other 01-28-2022 14:00-0400 Diastolic blood pressure 68 mm[Hg] Kyler Miramontes Other [employer] Other 01-28-2022 14:00-0400 Systolic blood pressure 112 mm[Hg] Kyler Miramontes Other [employer] Other 01-14-2022 12:00-0400 Body height 166.37 cm Girish Callaway Other [employer] Other 01-14-2022 12:00-0400 Body mass index (BMI) [Ratio] 25.23 kg/m2 Girish Callaway Other [employer] Other 01-14-2022 12:00-0400 Body weight 69.85 kg Girish Callaway Other [employer] Other Encounters Encounter Date Encounter Type Care Provider Facility Start: 03-16-2024 Non-patient / Non-visit PANEL GLUER-C L aura Spasic Work Phone: [facility] Work Phone: Start: 03-16-2024 End: 03-16-2024 Admission to same day surgery center PANEL GLUER-C Ajit Spasic Work Phone: [facility] Work Phone: Start: 03-16-2024 End: 03-16-2024 ambulatory PANEL GLUER-C Ajit E Spasic Work Phone: [facility] Work Phone: Start: 03-08-2024 End: 03-08-2024 ambulatory PANEL GLUER-C Ajit E Spasic Work Phone: [facility] Work Phone: Start: 03-08-2024 End: 03-08-2024 Patient encounter procedure PANEL GLUER-C Ajit Spasic Work Phone: [facility] Work Phone: Start: 03-02-2024 End: 03-02-2024 Patient encounter procedure PANEL GLUER-C Ajit Spasic Work Phone: [facility] Work Phone: Start: 03-02-2024 End: 03-02-2024 ambulatory PANEL GLUER-C Ajit E Spasic Work Phone: [facility] Work Phone: Start: 03-01-2024 Non-patient / Non-visit PANEL GLUER-C L aura Spasic Work Phone: [facility] Work Phone: Start: 03-01-2024 End: 03-01-2024 Admission to same day surgery center PANEL GLUER-C Ajit Spasic Work Phone: [facility] Work Phone: Start: 03-01-2024 End: 03-01-2024 ambulatory PANEL GLUER-C Ajit E Spasic Work Phone: [facility] Work Phone: Start: 02-21-2024 End: 02-21-2024 ambulatory PANEL GLUER-C Ajit E Spasic Work Phone: [facility] Work Phone: Start: 02-21-2024 End: 02-21-2024 Patient encounter procedure PANEL GLUER-C Ajit Spasic Work Phone: [facility] Work Phone: Start: 02-09-2024 End: 02-09-2024 Patient encounter procedure PANEL GLUER-C Ajit Spasic Work Phone: [facility] Start: 02-09-2024 End: 02-09-2024 ambulatory PANEL GLUER-C Ajit E Spasic Work Phone: [facility] Work Phone: Start: 02-04-2024 End: 02-04-2024 Patient encounter procedure PANEL GLUER-C Ajit Spasic Work Phone: [facility] Work Phone: Start: 02-04-2024 End: 02-04-2024 ambulatory PANEL GLUER-C Ajit E Spasic Work Phone: [facility] Work Phone: Start: 01-21-2024 End: 01-21-2024 Patient encounter procedure PANEL GLUER-C Ajit Spasic Work Phone: [facility]Ultrasound [facility] [place] Work Phone: Start: 01-21-2024 End: 01-21-2024 ambulatory PANEL GLUER-C Ajit E Spasic Work Phone: [facility] Work Phone: Start: 01-18-2024 End: 01-18-2024 ambulatory Ajit Millanc [facility] Work Phone: Start: 01-18-2024 End: 01-18-2024 Departed Referred PANEL GLUER-C Ajit Millanc Work Phone: [facility] Start: 10-20-2023 End: 10-20-2023 ambulatory CARRI A VISCI Not Available Start: 10-16-2023 End: 10-16-2023 Emergency department patient visit PANEL GLUER-C Ajit Millanc Work Phone: [facility]-Emergency Room Work Phone: Start: 10-07-2023 End: 10-09-2023 Evaluation and management of inpatient PANEL GLUER-C Ajit Millanc Work Phone: [facility] Work Phone: Start: 09-28-2023 End: 09-28-2023 Admission to same day surgery center PANEL GLUER-C Ajit Yanac Work Phone: [facility] [place] Start: 09-28-2023 End: 09-28-2023 ambulatory Carri Visci Facility:[facility] Start: 09-16-2023 End: 09-16-2023 Patient encounter procedure PANEL GLUER-C Ajit Yanac Work Phone: [facility]-Pre-Surgical Testing Work Phone: Start: 09-16-2023 End: 09-16-2023 ambulatory PANEL GLUER-C Ajit Polosic Work Phone: [facility] Work Phone: Start: 07-13-2023 End: 07-13-2023 Admission to same day surgery center NA [employer] Work Phone: [facility] [place] Start: 07-13-2023 End: 07-13-2023 ambulatory . [employer] Work Phone: [facility] Work Phone: Start: 06-30-2023 End: 06-30-2023 Patient encounter procedure NA [employer] Work Phone: [facility]Pre-Surgical Testing Work Phone: Start: 06-30-2023 End: 06-30-2023 ambulatory . [employer] Work Phone: [facility] Work Phone: Start: 05-05-2023 (PROC) PROCEDURE Kyler Miramontes [facility] Start: 05-05-2023 End: 05-05-2023 Admission to same day surgery center PANEL GLUER-C Ajit Spasic Work Phone: [facility] Work Phone: Start: 05-05-2023 End: 05-05-2023 ambulatory NON STAFF [facility] Work Phone: Start: 05-04-2023 End: 05-04-2023 ambulatory NON STAFF [facility] Work Phone: Start: 05-04-2023 End: 05-04-2023 Departed Referred PANEL GLUER-C Ajit Spasic Work Phone: [facility] Start: 04-26-2023 End: 04-26-2023 Patient encounter procedure PANEL GLUER-C Ajit Spasic Work Phone: [facility] [place] Work Phone: Start: 04-26-2023 End: 04-26-2023 ambulatory Kyler Miramontes Facility:[facility] Start: 04-14-2023 (PROC) PROCEDURE [facility] Start: 04-14-2023 End: 04-14-2023 Admission to same day surgery center PANEL GLUER-C Ajit Pettit Work Phone: [facility] Work Phone: Start: 04-14-2023 End: 04-14-2023 ambulatory NON STAFF [facility] [employer] Other Start: 04-02-2023 End: 04-02-2023 ambulatory Kyler Miramontes Other [facility] [employer] Other Start: 04-02-2023 Office outpatient vi sit 25 minutes Kyler Miramontes [facility] [place] Start: 02-15-2023 End: 02-15-2023 ambulatory AJIT POLOSIC Facility:[facility] Start: 02-09-2023 End: 02-09-2023 ambulatory [facility] Work Phone: [facility] Work Phone: Start: 02-09-2023 End: 02-09-2023 Departed Referred Services [facility] Work Phone: [facility] Start: 01-29-2023 End: 01-29-2023 ambulatory AJIT POLOSIC Facility:[facility] Start: 12-29-2022 ambulatory Joshua PRESTON Facility : [facility] Start: 11-18-2022 (PROC) PROCEDURE Kyler Miramontes [facility] Start: 11-18-2022 End: 11-18-2022 Admission to same day surgery center Services [facility] Work Phone: [facility] Work Phone: Start: 11-18-2022 End: 11-18-2022 ambulatory [facility] Work Phone: [facility] Work Phone: Start: 11-12-2022 End: 11-12-[address] DERICK BORRERO . Facility:[facility] Start: 11-05-2022 End: 11-05-2022 ambulatory [facility] Work Phone: [facility] Work Phone: Start: 11-05-2022 End: 11-05-2022 Departed Referred Services [facility] Work Phone: [facility] Start: 11-03-2022 End: 11-03-2022 ambulatory Kyler Miramontes Other [facility] [employer] Other Start: 11-03-2022 Office outpatient vi sit 25 minutes Kyler Miramontes [facility] Start: 11-03-2022 End: 11-03-2022 Patient encounter procedure Services [facility] Work Phone: [facility]-XRay [facility] Work Phone: Start: 11-02-2022 End: 11-03-2022 ambulatory Joshua PRESTON Facility:[facility] Start: 11-02-2022 End: 11-02-2022 Patient encounter procedure Joshua PRESTON [facility] Start: 09-29-2022 End: 09-30-2022 ambulatory Joshua PRESTON Facility: [facility] Start: 09-29-2022 End: 09-29-2022 Patient encounter procedure Joshua PRESTON [facility] Start: 08-24-2022 End: 08-25-2022 ambulatory Joshua PRESTON [facility] Start: 08-24-2022 End: 08-24-2022 Patient encounter procedure Joshua PRESTON [facility] Start: 07-31-2022 End: 08-01-2022 ambulatory BELTRAN PAVON Facility:[facility] Start: 07-31-2022 End: 07-31-2022 Patient encounter procedure [facility]ON [facility] Start: 07-08-2022 End: 07-08-2022 ambulatory [facility] Work Phone: [facility] Work Phone: Start: 07-08-2022 End: 07-08-2022 Patient encounter procedure Services [facility] Work Phone: [facility] [place] Start: 06-24-2022 End: 06-24-2022 Patient encounter procedure Services [facility] Work Phone: [facility] [place] Start: 06-17-2022 End: 06-17-2022 Patient encounter procedure [facility] Work Phone: [facility]Ul[facility]ound [facility] [place] Start: 06-09-2022 End: 06-09-2022 Patient encounter procedure [facility] Work Phone: [facility] [place] Start: 06-02-2022 End: 06-02-2022 Departed Referred Services [facility] Work Phone: [facility] Start: 05-27-2022 End: 05-27-2022 Registered Recurring Services [facility] Work Phone: [facility] Start: 05-07-2022 End: 05-07-2022 Patient encounter procedure Services [facility] Work Phone: [facility] [place] Start: 05-01-2022 End: 05-01-2022 Emergency department patient visit Services [facility] Work Phone: [facility]-Emergency Room Start: 05-01-2022 End: 05-01-2022 Patient encounter procedure Services [facility] Work Phone: [facility] [place] Start: 04-30-2022 End: 04-30-2022 Departed Referred Services [facility] Work Phone: [facility] Start: 04-29-2022 End: 04-29-2022 Emergency department patient visit Services [facility] Work Phone: [facility]Emergency Room Start: 03-04-2022 (Procedure) Short Kyler Miramontes [employer] [facility] Start: 03-04-2022 End: 03-04-2022 ambulatory Kylerjoceyln Miramontes Other [employer] Other Start: 02-19-2022 End: 02-19-2022 ambulatory Kyler Fe Other [employer] Other Start: 02-19-2022 Office outpatient vi sit 25 minutes Kyler Fe [facility] Start: 02-11-2022 (Procedure) Jaxon Pugh ands [facility] Start: 02-11-2022 End: 02-11-2022 ambulatory Kyler Fe Other [employer] Other Start: 01-28-2022 End: 01-28-2022 ambulatory Kyler Fe Other [employer] Other Start: 01-28-2022 Office consultation new/estab patient 60 min Kyler Fe [facility] Start: 01-14-2022 End: 01-14-2022 ambulatory Girish Callaway Other [employer] Other Start: 01-14-2022 Office outpatient ne w 30 minutes Girish Callaway [facility] Neuro[facility] Start: 01-21-2021 End: 01-21-2021 Departed Referred Services [facility] Work Phone: -[facility] Start: 12-24-2020 End: 12-24-2020 Patient encounter procedure Ajit Spasic -MRI [facility] [place] Start: 12-03-2020 End: 12-03-2020 Patient encounter procedure Ajit Spasic -MRI [facility] [place] Start: 12-02-2020 End: 12-02-2020 Patient encounter procedure Ajit Pettit -MRI [facility] Start: 11-05-2020 End: 11-05-2020 Departed Referred Ajit Pettit -[facility] Start: 10-22-2020 End: 10-22-2020 Patient encounter procedure Ajit Pettit -XRay [facility] Start: 09-23-2020 End: 09-23-2020 Patient encounter procedure Ajit Pettit -Lab [facility] Procedures Date Procedure Procedure Detail Performing Clinician Start: 03-16-2024 Screening colonoscopy N P-C Ajit Millanc Work Phone: Start: 03-02-2024 X-ray of lumbar spin e, four views PANEL GLUER-C Ajit Millanc Work Phone: Start: 03-01-2024 Injection of local anesthetic into sacroiliac joint PANEL GLUER-C Ajit Spasic Work Phone: Start: 02-09-2024 Ultrasonography of r ight breast PANEL GLUER-C Ajit Polosic Work Phone: Start: 02-04-2024 Screening mammograph y of bilateral breasts PANEL GLU[employer]-C Ajit Polosic Work Phone: Start: 01-21-2024 Ultrasonography of bilateral kidneys PANEL GLUER-C Ajit Spasic Work Phone: Start: 10-09-2023 Stool culture for bacteria PANEL GLUER-C Ajit Polosic Work Phone: Start: 10-08-2023 Computed tomography of abdomen and pelvis with contrast PANEL GLU[facility]-C Ajit Spasic Work Phone: Start: 09-28-2023 Total hysterectomy v ia vaginal approach PANEL GLUER-C Ajit Spasic Work Phone: Start: 09-16-2023 Antibody screen Kyler Aliceaky Comment on above: Order Comment: Date of Surgery: [id number] Result Comment: PERF ORMED BY: [facility] [address] [place] [id number] PATHOLOGIST LOSS PREVENTION GUARD RIDGE HUERTA M.D. Start: 07-13-2023 Hysteroscopy [employer] Work Phone: Start: 06-30-2023 Antibody screen Kyler Miramontes Comment on above: Order Comment: Date of Surgery: [id number] Result Comment: PERF ORMED BY: [facility] [place] [address] PATHOLOGIST LOSS PREVENTION GUARD RIDGE HUERTA M.D. Order Comment: Reaso n for Exam Type 2 diabetes mellitus without complication, without long- Start: 05-05-2023 Injection of local anesthetic into sacroiliac joint PANEL GLUER-C Ajit Spasic Work Phone: Start: 05-04-2023 Urine culture NA [employer] Work Phone: Start: 04-26-2023 Radiography of thora cic spine PANEL GLUER-C Ajit SpasiGloNav Work Phone: Start: 04-14-2023 Epidural injection o f lumbar spine using fluoroscopic guidance PANEL GLUER-C Ajit SpasiGloNav Work Phone: Start: 02-09-2023 Urine culture PANEL GLUER-C Piero a SpasiGloNav Work Phone: Start: 11-18-2022 Injection of spinal epidural space Services [facility] [employer] Work Phone: Start: 11-05-2022 Urine culture Services [facility] [employer] Work Phone: Start: 11-03-2022 X-ray of cervical spine Services [facility] [employer] Work Phone: Start: 08-24-2022 Cystourethroscopy wi dilation of urethral stricture Joshua PRESTON Start: 06-24-2022 MRI of head Services [facility] [employer] Work Phone: Start: 06-17-2022 Transvaginal echography Services [facility] [employer] Work Phone: Start: 06-17-2022 Pelvic echography Servi sharri [facility] [employer] Work Phone: Start: 06-09-2022 US scan of bladder Serv ices [facility] [employer] Work Phone: Start: 05-01-2022 Computed tomography of abdomen and pelvis with contrast Services [facility] [employer] Work Phone: Start: 05-01-2022 X-ray of right knee Ser [facility] [employer] Work Phone: Start: 04-29-2022 X-ray of left ankle Ser [facility] [employer] Work Phone: Start: 12-24-2020 MRI of left [...] Ajit Spas ic Start: 09-23-2020 Radiography of cervi jordan spine Ajit Spasic Appendectomy Joshua PRESTON Blood culture for ba cteria, including anaerobic screen Services [facility] [employer] Work Phone: Blood culture for ba cteria, including anaerobic screen Services [facility] [employer] Work Phone: Cholecystectomy Joshua PRESTON H/O: hysterectomy S/P hysterectomy PANEL GLUER-C L aura Spasic Work Phone: H/O: hysterectomy Status post hysterectomy PANEL GLUER-C Ajit Spasic Work Phone: Urine culture Services [facility] [employer] Work Phone: Plan of Treatment Date Care Activity Detail Author Start: 03-16-2024 [facility] Start: 03-01-2024 [facility] Start: 10-16-2023 Bacteria identified in Blood by Culture [facility] Start: 10-16-2023 [facility] Start: 10-09-2023 Stool culture Stool Culture [facility] Start: 10-09-2023 [facility] Start: 10-09-2023 Referral to clearance diver [facility] Start: 10-08-2023 Hospital admission [facility] Start: 10-08-2023 [facility] Start: 10-07-2023 Referral to clinical director of nursing [facility] Start: 09-28-2023 Hospital admission [facility] Start: 09-28-2023 [facility] Start: 07-13-2023 End: 07-13-2023 [facility] Start: 05-05-2023 [facility] Start: 05-04-2023 Bacteria identified in Urine by Culture Urine Culture [facility] Start: 05-04-2023 Urine culture Urine Culture [facility] Start: 04-14-2023 [facility] Start: 02-09-2023 Bacteria identified in Urine by Culture [facility] Start: 11-18-2022 [facility] Start: 11-05-2022 Bacteria identified in Urine by Culture [facility] Start: 06-02-2022 End: 06-02-2022 Departed Referred Departed Referred [facility] Start: 05-27-2022 Registered Recurring Iron deficiency [facility] Start: 05-27-2022 [facility] Start: 05-07-2022 End: 05-07-2022 Patient encounter procedure Departed Clinical [facility] [place] Start: 05-01-2022 Computed tomography of abdomen and pelvis with contrast CT abdomen pelvis w con [facility] Start: 05-01-2022 End: 05-01-2022 Emergency department patient visit Departed Emergency [facility] Atopobium vaginae DN A [Presence] in Vaginal fluid by NAYELY with probe detection [facility] Bacterial vaginosis associated bacterium 2 DNA [Presence] in Vaginal fluid by NAYELY with probe detection [facility] Chlamydia trachomati s rRNA [Presence] in Cervix by NAYELY with probe detection [facility] Glucose measurement estimated from glycated hemoglobin [facility] Hemoglobin A1c/Hemoglobin.total in Blood [facility] Human papilloma viru s 16+18+31+33+35+39+45+51+5 2+56+58+59+66+68 DNA [Presence] in Cervix by Probe with signal amplification [facility] Human papilloma viru s 16+18+31+33+35+39+45+51+5 2+56+58+59+68 DNA [Presence] in Cervix by Probe with signal amplification [facility] Megasphaera sp type 1 DNA [Presence] in Vaginal fluid by NAYELY with probe detection [facility] Neisseria gonorrhoea e rRNA [Presence] in Cervix by NAYELY with probe detection [facility] Patient Education [facility] Work Phone: Patient referral [facility] Work Phone: XR Lumbar spine 4 Views [facility] Immunizations Immunization Date Immunization Notes Care Provider Fa cility 09-19-2021 COVID-19 mRNA, Comirnaty (Pfizer) NA [employer] Work Phone: [facility] 08-29-2021 COVID-19 mRNA, Comirnaty (Pfizer) NA [employer] Work Phone: [facility] NEGATED: Highlighted row has not occurred!10-27-2019 influenza virus vaccine, live, attenuated, for intranasal use Joshua PRESTON [facility] Payers Date Payer Category Payer Self-pay [id number] 2019 Unknown [id number] 1979 Unknown [id number] 2.16.8 40.1.176511.3.579.2.727 1979 Unknown [id number] 2.16.8 40.1.338049.3.579.2.727 1979 Unknown [id number] 2.16.8 40.1.075922.3.579.2.727 1979 Unknown [id number] 2.16.8 40.1.362603.3.579.2.727 1979 Unknown [id number] 11.19.8 40.1.771718.3.579.2.727 1979 Unknown [id number] ..[id number] 0.1.091960.3.579.2.593 1979 Unknown [id number] ..[id number] 0.1.644319.3.579.2.593 1979 Unknown [id number] 11.19.84 0.1.063966.3.579.2.593 1979 Unknown [id number] .16.84 0.1.530227.3.579.2.1259 1959 Medicaid [id number] 50 [id number] Unknown [id number] Unknown [id number] 16.8 40.1.691549.3.579.2.531 Unknown [id number] .16.8 40.1.653615.3.579.2.531 Unknown [id number] 2.16.8 40.1.943268.3.579.2.531 Unknown [id number] .16.8 40.1.622384.3.579.2.531 Unknown [id number] .16.8 40.1.060827.3.579.2.531 Unknown [id number] .16.8 40.1.423389.3.579.2.531 Unknown [id number] .16.8 40.1.745945.3.579.2.531 Unknown [id number] .16.8 40.1.067461.3.579.2.531 Unknown [id number] .16.8 40.1.018254.3.579.2.531 Unknown [id number] 2.16.8 40.1.153371.3.579.2.531 Unknown [id number] .16.8 40.1.324247.3.579.2.531 Unknown [id number] 2.16.8 40.1.901244.3.579.2.531 Unknown [id number] 2.16.8 40.1.344855.3.579.2.531 Unknown [id number] 2.16.8 40.1.698786.3.579.2.531 Unknown [id number] 2.16.8 40.1.626158.3.579.2.531 Unknown [id number] 2.16.8 40.1.327310.3.579.2.531 Unknown [id number] 2.16.8 40.1.312410.3.579.2.531 Social History Date Type Detail Facility Start: 09-25-2019 End: 10-16-2023 Tobacco smoking status NHIS Smoker (finding) [facility] Start: 1980 Sex Assigned At Female F [facility] Sex Assigned At [facility] Start: 07-31-2022 Tobacco smoking status Heavy t obacco smoker (finding) [facility] Start: 03-01-2024 End: 03-16-2024 Tobacco smoking status NHIS Current some day smoker [facility] Goals Date Patient Goal Desired Activity /State Functional Status Date Assessment Result Facility 10-09-2023 Functional status Patient at Baseline [facility] Work Phone: 11-02-2022 Functional Status N/A [facility] 08-24-2022 Functional Status N/A [facility] 07-31-2022 Functional Status N/A [facility] Mental Status Date Assessment Result Facility 10-09-2023 Cognitive function Cognitive Sta tus Patient at Baseline [facility] Work Phone: Clinical Notes 01-14-2022 to 03-16-2024 Note Date & Type Note Facility 03-16-2024 Procedure note [facility] 03-01-2024 Procedure note [facility] 10-09-2023 Discharge summary Note Date/Time October 09, 2023 1:22pm [facility] [address] [id number] Discharge Summary Signed Patient: Rachel Mcgarry MR#: [id number] : 1980 Acct:[id number] Age/Sex: 43 / F Adm Date: 4 Loc: Room: [address] [place] [address]: Salazar Cabrera DO Copies to: OLEG Sharp APRN Shawn J Warner, DO~ Providers Date of Admission: 10/08/23 Date of Discharge: 10/09/23 Discharging Provider: Salazar Cabrera Additional Discharging Provider: Salazar Cabrera Primary Care Provider: Ajit Pettit Consults: 10/07/23 23:27 Consult to Adult Hospitalist Routine 10/08/23 07:21 Consult to rating officer Routine 10/09/23 06:50 Consult to Obstetrics Routine [...] abdominal pain. CT abdomen pelvis done at [facility] showed nonspecific hyperemia and thickening of the small bowel distally suggestive of enteritis but nonacute otherwise and no postoperative complications were noted. She was transferred to [facility] for evaluation by recent surgical team. She was noted to have elevated lactate and given IV hydration as well as Zosyn. Lactate resolved with hydration. She had repeat CTdone at [place] with bloating and pain increasing with liquid intake unchangedfrom previous and no surgical complications again noted. SHERIFF'S OFFICER services followed ongoing through hospital stay. She was also seen by psychiatry with increase insertraline due to reports of depression and suicidal thoughts, should follow-up with [facility] behavioral health after discharge. Date of discharge [...] % (Auto) 70.1, Lymph % (Auto) 16.5, Holt % (Auto) 9.5, Eos % (Auto) 3.5, Baso % (Auto) 0.4, Nucleat RBC Rel Count 0.1, Neut # (Auto) 9.6 H, Lymph # (Auto) 2.2, Holt # (Auto) 1.3 H, Eos # (Auto) [...] signed by Salazar Cabrera DO> 10/09/23 1842 [facility] Work Phone: 1(212) 474-794301-06-2024 Progress note Author BONG Pavon [facility] October 09, 2023 8:22am Note Date/Time October 09, 2023 8: 22am [facility] [address] [place] [address] Progress Note Signed Patient: Rachel Mcgarry MR#: [id number] : 1980 Acct:[id number] Age/Sex: 43 / F Adm Date: 4 Loc: Room: [address] [place] [address] Type: ADM IN Attending Dr: Salazar Cabrera [...] % (Auto) 70.1, Lymph % (Auto) 16.5, Holt % (Auto) 9.5, Eos % (Auto) 3.5, Baso % (Auto) 0.4, Nucleat RBC Rel Count 0.1, Neut # (Auto) 9.6 H, Lymph # (Auto) 2.2, Holt # (Auto) 1.3 H, Eos # (Auto) 0.5 H, Baso # (Auto) 0.1 10/08/23 22:27: POC Glucose 194 10/08/23 18:21: POC Glucose 265, POC Glucose Comment Glu2: cleaned meter 10/08/23 13:07: POC Glucose 166, POC Glucose Comment Glu2: cleaned meter 10/08/23 10:31: Lactic Acid 1.9 10/08/23 08:20: Urine Color [place] A, Urine Appearance Turbid A, Urine pH 5.5, Ur Specific [place] > 1.050 H, Urine Protein 30 H, [...] <Electronically signed by BONG Pavon> 10/09/23 0822 [facility] Work Phone: 1(837) 768-690101-05-2024 Consult note Author Teo crandall [facility] October 08, 2023 4:59pm Note Date/Time October 08, 2023 11 :30am [facility] [address] [place] [address] Psychiatry Consult Note Signed with Addenda Patient: Rachel Mcgarry MR#: [id number] : 1980 Acct:[id number] Age/Sex: 43 / F Adm Date: 4 Loc: Room: 0S4979-9 Type : ADM IN Attending Dr: Rosanna [...] negative unless noted below or in HPI [facility] Medical History (Updated 10/08/23 @ [...] Color Urine Appearance Urine pH Ur Specific [place] Urine Protein Urine Glucose (UA) Urine Ketones Urine Occult Blood Urine Nitrite Ur Leukocyte Esterase Urine RBC Urine WBC 10/08/23 08:20 RBC Hgb Hct MCV MCH MCHC RDW Plt Count MPV Sodium Potassium Chloride Carbon Dioxide Anion Gap BUN Creatinine Calcium Total Bilirubin AST ALT Alkaline Phosphatase Total Protein Albumin Urine Color [place] A Urine Appearance Turbid A Urine pH 5.5 Ur Specific [place] > 1.050 H Urine Protein 30 H [...] <Electronically signed by Teo Taylor MD> 10/08/23 141 [facility] Work Phone: 1(214) 587-877201-05-2024 Progress note Author Salazar Cabrera [facility] October 08, 2023 4:41pm Note Date/Time October 08, 2023 11 :44am [facility] [address] [place] [address] Hospitalist Progress Note Signed Patient: Rachel Mcgarry MR#: [id number] : 1980 Acct:[id number] Age/Sex: 43 / F Adm Date: 4 Loc: Room: [address] [place] [address] Type: ADM IN Attending Dr: Rosanna Grullon [...] Tablet PO 10/07/24 01:59 Not Given Q6H SUSANNE Insulin Aspart 0 units 10/08/23 06:00 10/08/23 06:27 Insulin Aspart 300 Units/3 Ml Insuln.Pen SUBCUT 10/07/24 05:59 1 units Q6HR [facility] Administration Protocol Ondansetron HCl 4 mg 10/07/23 22:54 10/08/23 08:37 Ondansetron 4 Mg/2 Ml Vial IV-PUSH 10/06/24 22:53 4 mg Q8H PRN Administration Nausea And Vomiting Ondansetron HCl 4 mg 10/07/23 22:54 Ondansetron Odt 4 Mg Tab.Rapdis PO 10/06/24 22:53 Q8HR PRN Nausea And Vomiting Sertraline HCl 150 mg 10/09/23 09:00 Sertraline 50 Mg Tablet PO 10/08/24 08:59 DAILY [facility] A&P - Hospitalist Assessment/Plan (1) Abdominal pain: (2) Metabolic acidosis: (3) S/P hysterectomy: (4) T2DM (type 2 diabetes mellitus): (5) Enteritis: (6) Leucocytosis: (7) IBS (irritable bowel syndrome): Plan Abdominal pain Recent hysterectomy/bilateral salpingectomy 09/28/2023 History IBS?D Enteritis Lactic acidosis chronic leukocytosis -CT abdomen pelvis?from [facility] showed nonspecific hyperemia and thickening of small bowel distally suggestive of enteritis, nonacute otherwise, no postsurgical complications noted -Repeat CT abdomen pelvis?increasing bibasilar atelectasis, fatty liver, no bowel or urinary tract obstruction, no pelvic hematoma or significant free fluid, otherwise unchanged CT abdomen pelvis -Initial lactate 3.0--> 2.6--> 2.0--> 1.9 -Continue Zosyn, IVF. Afebrile. Scheduled dicyclomine. Symptom management -Advance diet to full liquid -SHERIFF'S OFFICER following Depression -Seen by psychiatry with increase [...] signed by Salazar Cabrera DO> 10/08/23 1641 [facility] Work Phone: 1(740) 985-391301-05-2024 History and physical note Author BONG Pavon [facility] October 08, 2023 1:07pm Note Date/Time October 08, 2023 7: 21am [facility] [address] [place] [address] PEDIATRIC LICENSED PRACTICAL NURSE History & Physical Signed with Addenda Patient: Rachel Mcgarry MR#: [id number] : 1980 Acct:[id number] Age/Sex: 43 / F Adm Date: 4 Loc: Room: [address] [place] [address] Type: ADM IN Attending Dr: Beltran Pavon [...] has enteritis. She is cleared from the SHERIFF'S OFFICER post op standpoint and we are signing off. Pt will be transferred to a medical floor for continued management. Addendum Documented By: BONG Pavon 10/08/23 1307 Addendum Signed By: <Electronically signed by BONG Pavon> 10/08/23 1307 Date of Service: 10/08/2023 [employer]ERIFF'S OFFICER - HPI History of Present Illness Chief Complaint: Abdominal pain with emesis Planned Procedure: S/P TLH 09/28/2023 HPI: Rachel presented to [facility] yesterday with abdominal pain/distension and emesis.Her lactic acid was 3.0,WBS 20k in ER,Sodium [address] scan compatible with enteritis. She was transferred to [facility] for observation and treatment. Pt with Chronic leukocytosis as followed by hematology for 2 years Review of Systems Review of Systems All other systems reviewed & are negative unless noted below or in HPI [facility] Medical History (Updated 10/08/23 @ [...] 1,000 mls @ 150 mls/hr IV .Q6H40M SUSANNE Stop: 10/06/24 22:59 Last Admin: 10/08/23 01:10 Dose: 125 mls/hr Piperacillin Sod/Tazobactam Sod (Zosyn) 3.375 gm in 100 mls @ 200 mls/hr IV Q6HSCH Last Admin: 10/08/23 03:45 Dose: 200 mls/hr Ibuprofen (Ibuprofen 600 Mg Tablet) 600 mg PO Q6H SUSANNE Stop: 10/07/24 01:59 Last Admin: 10/08/23 03:32 Dose: Not Given Insulin Aspart (Insulin Aspart 300 Units/3 Ml Insuln.Pen) 0 units SUBCUT Q6HR [facility]; Protocol Stop: 10/07/24 05:59 Last Admin: 10/08/23 06:27 Dose: 1 units Ondansetron HCl (Ondansetron 4 Mg/2 Ml Vial) 4 mg IV-PUSH Q8H PRN PRN Reason: Nausea And Vomiting Stop: 10/06/24 22:53 Ondansetron HCl (Ondansetron Odt 4 Mg Tab.Rapdis) 4 mg PO Q8HR PRN PRN Reason: Nausea And Vomiting Stop: 10/06/24 22:53 [employer]ER[employer] OFFICER - Exam Physical Exam Vital signs: Temp [...] Present normal affect, suicidal ideation and depressed [employer] OFFICER - Results Laboratory Results - Last 48 [...] Albumin 3.7, Globulin 2.4, Albumin/Globulin Ratio 1.5 [employer] - A/P (1) Abdominal pain: Plan: Post op post TLH pain Pt with history of IBS CT Scan changes c/w Enteritis (2) Metabolic acidosis: Plan: Follow lactic acid Hospitalist consulted (3) S/P hysterectomy: Plan: Postop H 09/28 (4) T2DM (type 2 diabetes mellitus): Plan: As followed by Hospitalist (5) History of leukocytosis: Plan: History of leukocytosis for 2 years followed by Hematology Oncology Documented By: BONG Motley 10/08/23 07 19 Signed By: <Electronically signed by BONG Pavon> 10/08/23 2672 [facility] Work Phone: 1(124) 752-245301-05-2024 Consult note Author Rosanna Grullon [facility] October 08, 2023 7:00am Note Date/Time October 08, 2023 1: 06am [facility] [address] [place] [address] Hospitalist Consult Note Signed Patient: Rachel Mcgarry MR#: [id number] : 1980 Acct:[id number] Age/Sex: 43 / F Adm Date: 4 Loc: Room: [address] [place] [address] Type: ADM IN Attending Dr: Beltran Pavon MD Copies to: MD Ajit Davis, PANEL GLUER-C Namrata Munoz, BONG Frederick~ HPI DATE OF CONSULTATION: 10/08/23 REQUESTING PROVIDER: Beltran Pavon Consult Narrative Reason for Consult: elevated lactic acid, T2DM, leukocytosis HPI: Ms. Mcgarry is a 43-year-old female with a PMH of T2DM, seizure disorder, recent hysterectomy that was transferred here to [facility] to obstetrics for abdominal pain. Hospitalist team has been consulted for management of T2DM, elevated lactic acid and leukocytosis. Patient arrived to the [facility] emergency room via EMS for [...] 28. She been seen in the [facility] emergency room for vaginal infection and was [...] unless noted in the HPI or below. [facility] Medical History (Updated 10/08/23 @ [...] Q6H PRN Itching Hydromorphone HCl 0.5 mg 01/04/24 22:54 Hydromorphone 0.5 Mg/0.5 Ml Syringe IV-PUSH [...] to CT dyereceived at the [facility] Documented By: Namrata Munoz APRN 10/08/23 0106 Signed By: <Electronically signed by CHRISTINA Munoz> 10/08/23 0153 <Electronically signed by Rosanna Grullon MD> 10/08/23 0700 [facility] Work Phone: 1(571) 592-970008-02-2023 [facility]06-30-2023 Evaluation note* Encounter Date Diagnosis Assessment [...] activities and movements while managing her pain. [facility] Other 01-31-2023 Evaluation note* Encounter Date Diagnosis [...] cervical spine to further evaluate her pain. [facility] Other 01-30-2023 Hospital Discharge instructions Patient Education [...] to keep your urine pale yellow. ?Take cshj-pav-fdzymrc or prescription medicines. ?Eat foods that are high in fiber, such as beans, whole grains, and fresh fruits and vegetables. ?Limit foods that are high in fat and processed sugars, such as fried or sweet foods. General instructions Take yqwx-pql-xbjvrim and prescription medicines only as told by [...] the muscles that help control urination. Take rmav-bfi-yjagyhc and prescription medicines only as told by your health care provider. Contact a health care provider if your symptoms do not improve or get worse. This information is not intended to replace advice given to you by your health care provider. Make sure you discuss any questions you have with your health care provider. Document Released: 07/17/2010 Document Revised: 03/30/2019 Document Reviewed: 03/30/2019 [employer] Patient Education 2020 [employer]. Follow Up Care 10/22/2022 11:17:07 With:JORDANA BALDERAS, Joshua Dempsey, URL Address: [facility] [employer] [address] [id number]- Business (1) When: Unknown [facility] [place] [id number] Note [id number]:127[facility] 08-24-2022 NoteCystoscopy with Urethral Dilation ? [...] if you have a fever [facility] [address] [facility] Discharge instructions Patient Education 08/24/2022 [...] Care 07/31/2022 12:32:41 With:Joshua PRESTON Address: [address] [id number] [facility] (1) When:6 weeks Comments:Call for followup appointment. Monitor the urinary low after the dilation today. Have a great Thanksgiving. [facility]10-28-2022 Hospital Discharge instructions Patient Education 07/31/2022 [...] including vitamins, herbs, eye drops, creams, and jmob-lki-tdgnypy medicines. ?Whether you are or may be [...] 07/17/2008 Document Revised: 01/09/2020 Document Reviewed: 07/25/2018 [employer] Patient Education 2020 [employer]. Follow Up Care 07/24/2022 16:53:57 With:JORDANA BALDERAS, Joshua Dempsey, URL Address: [address] [place], [place] [id number]- When: Unknown Comments:Cysto/ Urodynamics [facility] [place] [id number] Evaluation note* Encounter Date Diagnosis Assessment Notes [...] and GT bursa injection in the future. [facility] Other 04-27-2022 Evaluation note* Encounter Date Diagnosis [...] progress notes from her referring physician at [facility]. I also independently reviewed previous MRI of [...] - M79.7) Continue with medication management through [facility]. I will also refer her to physical [...] negative findings were considered in medical decision-making. [facility] Other 04-13-2022 Evaluation note* Encounter Date Diagnosis Assessment Notes Treatment Notes Treatment Clinical Notes Jan, Neck pain (ICD-10 - M54.2) I really do not see any surgical intervention that would be warranted in either her cervical or lumbar spine. I think continue conservative therapy is warranted. Jan, Low back pain at multiple sites (ICD-10 - M54.50) Jan, Fibromyalgia (ICD-10 - M79.7) [facility] Other consult note Author Jasmin Velázquez [facility] May 27, 2022 11:47am Note Date/Time May 27, 2022 11 :30am [facility] [place] [address] Hem/Onc Consult Note - OP Signed Patient: Rachel Mcgarry MR#: [id number] : 1980 Acct:[id number] Age/Sex: 42 / F Type: REG RCR Copies to: [facility]~ HPI Date/Time of Service: Date of Service: 05/27/2022 Time of Service: 11:29 Referring Provider/PCP: Referring Provider: PCP: Services [facility] - History of Present Illness Reason for Consultation: Leukocytosis Chief Complaint: Patient is here for a referral from Ajit Pettit for leukocytosis. [facility] labs. Patient states that she has been [...] the process of being referred to a janitor. Patient smokes averaging half pack to 1 [...] been very well within the normal range [facility] - Medical History Medical History: Medical History [...] cancer. Patient is being referred to a janitor. We instructed her to call back if there is any concern for further definitive guidance and recommendations - Time with Patient Coordination of Care & Counseling Time: Greater than 50% of time spent with patient was for coordination of care (as documented) and [id number] counseling of patient and/or family. Dictated By: Jasmin Velázquez MD DD/ [id number] Signed By: <Electronically signed by Jasmin Velázquez MD> 05/27/22 1147 [facility] Work Phone: Evaluation + Plan note Future Appointments Appointment Date:08/18/2022 08:00:00 AM Scheduled Provider: Location:[facility] Appointment Type:Urology CALL PAT FT Appointment Date:08/24/2022 02:00:00 PM Scheduled Provider: Location:[facility] Appointment Type:Urology FT Appointment Date:08/24/2022 03:00:00 PM Scheduled Provider: Location:[facility] Appointment Type:Urology FT [facility] Evaluation + Plan note Future Appointments Appointment Date:09/29/2022 10:15:00 AM Scheduled Provider:Joshua PRESTON MD Location:[facility] Appointments Appointment Date:12/29/2022 10:45:00 AM Scheduled Provider:Joshua PRESTON MD Location:[facility] Appointment Type:URO Office Visit [facility] evaluation noteNo Assessments Information Available [facility] Other evaluation note* Diagnosis Onset Date Resolution Status Iron deficiency acute Leucocytosis acute Right ovarian cyst acute [facility] Work Phone: Evalusgrru noteNo assessment information available [facility] Work Phone: evaluation note* Diagnosis Onset Date Resolution Status Abdominal pain acute Enteritis acute History of depression acute History of leukocytosis acut e IBS (irritable bowel syndrome) acute Leucocytosis acute Metabolic acidosis acute S/P hysterectomy acute T2DM (type 2 diabetes mellitus) acute [facility] Work Phone: Evaluation note* Diagnosis Onset Date Resolution Status Chronic pain acute Lumbosacral spondylosis acut e Sacroiliitis acute [facility] Work Phone: Evaluation note* Diagnosis Onset Date Resolution Status Chronic pain acute Lumbosacral spondylosis acut e Sacroiliitis acute Chronic pain acute Lumbar radiculopathy acute Lumbosacral spondylosis acut e Sacroiliitis acute [facility] Work Phone: History and physical note Author Abi Sunshine [facility] March 16, 2024 8:19am Note Date/Time March 16, 2024 8:20 am [facility] [address] [place] [address] Gastroenterology H&P Signed Patient: Rachel Mcgarry MR#: [id number] : 1980 Acct:[id number] Age/Sex: 44 / F Adm Date: 4 Loc: Room: Type: [facility] Attending Dr: Abi Sunshine DO Copies to: Abi Sunshine, OLEG Jesus~ Date of Service: 03/16/2024 HISTORY & PHYSICAL: Patient's history with special attention to the cardiovascular, pulmonary systems and the current problem was reviewed with the patient immediately prior to the procedure. Present medications and doses reviewed in the EMR. Allergies and pertinent laboratory tests were also reviewedat this time in the EMR. The physical examination, as below, was then performed. Indication, assessment and HPI: 44-year-old female who presents for colonoscopy for IBS, diarrhea. No prior colonoscopy Family history of GI malignancy? Family history of colon cancer maternal grandmother PHYSICAL EXAMINATION General appearance: cooperative, NAD Skin: No jaundice, no rash or lesions Head: NCAT Eyes: Anicteric Neck: Supple Lungs: Normal respiratory effort, no use of accessory muscles Abdomen: Soft, nondistended Neuro: No focal deficits, Ox3. REVIEW OF SYSTEMS Constitutional: Denies malaise, fevers Cardiovascular: Denies chest pain, palpitations Respiratory: Denies shortness of breath, wheezing Gastrointestinal: As per HPI Genitourinary: Denies dysuria, polyuria Musculoskeletal: Denies joint swelling, joint stiffness Neurological: Denies confusion, numbness, tingling Endocrine: Denies fatigue Written informed consent obtained from the patient. Risks (including but not limited to perforation, infection, bloating, bleeding, need for emergent surgeryand loss of life), benefits and alternatives explained and questions answered. The patient verbalized understanding. Based on history patient is an appropriate candidate for the procedure. Abi Sunshine DO Documented By: Abi Sunshine DO 03/16/24818 Signed By: <Electronically signed by Abi Sunshine DO> 03/16/24818 [facility] Work Phone: Hiscact general Narrative - Reported* Type Description Date [...] infection, bowel i nfection and flu 2011 [facility] Other [facility] general Narrative - Reported* Type Description Date [...] infection, bowel i nfection and flu 2011 [facility] Other Hospital course Narrative No data available for this section [facility] Hospital Discharge instructions No data available for this section [facility] Hospital Discharge instructions Additional Instructions DISCHARGE [...] in an emergency, call the office at [[phone]]. TODAY -Take it easy the rest of [...] FOLLOW UP -Please call the office at [phone] to arrange an appointment to see me in 2 weeks [ ][facility] Work Phone: Hospital Discharge instructions Additional Instructions Follow any previous post-op orders.[facility] Work Phone: Progress note No data available for this section [facility] Reason for visit NarrativeReferral Ajit Pettit NP [facility] Other Summary Purpose Family History No Family [...] Hyperthyroidism Unknown Malignant neoplasm of cervix Unknown Relationship Condition Age at Onset Recorded Date/T marilynn Not Specified Hypothyroidism Unknown Myocardial infarction Unknown Malignant neoplasm of ovary Unknown Malignant neoplasm of uterus Unknown sister Hyperthyroidism Unknown Malignant neoplasm of cervix Unknown father Unknown Not Specified Heart disease Unknown Relationship Condition Age at Onset Recorded Date/T marilynn Not Specified Malignant neoplasm of ovary Unknown Hypothyroidism Unknown Myocardial infarction Unknown Malignant neoplasm of uterus Unknown Heart disease Unknown sister Malignant neoplasm of cervix Unknown Hyperthyroidism Unknown Malignant neoplasm of ovary Unknown father Unknown Advance Directives No Advanced Directives Records [...] T2DM (type 2 diabetes mellitus) Chief Complaint Type 2 diabetes scooter itus without complication, wit Chief Complaint E11.9 R82.998 R79.89 Chief Complaint E11.9 R82.998 R79.89 Z12.31 Chief Complaint E11.9 R82.998 R79.89 Z12.31 N63.41 Chief Complaint E11.9 R82.998 R79.89 Z12.31 N63.41 back leg pain Reason for Visit Chronic pain Lumbosacral spondylosis Sacroiliitis Chief Complaint E11.9 R82.998 R79.89 Z12.31 N63.41 back leg pain Back Pain Back Pain Reason for Visit Chronic pain Lumbosacral spondylosis Sacroiliitis Chief Complaint E11.9 R82.998 R79.89 Z12.31 N63.41 back leg pain Back Pain Back Pain M47.817 Reason for Visit Chronic pain Lumbosacral spondylosis Sacroiliitis Chief Complaint E11.9 R82.998 R79.89 Z12.31 N63.41 back leg pain Back Pain Back Pain M47.817 FOLLOW UP AFTER MIGUELINA SI Reason for Visit Chronic pain Lumbosacral spondylosis Sacroiliitis Chronic pain Lumbar radiculopathy Lumbosacral spondylosis Sacroiliitis Chief Complaint E11.9 R82.998 R79.89 Z12.31 N63.41 back leg pain Back Pain Back Pain M47.817 FOLLOW UP AFTER MIGUELINA SI Screening Screening Reason for Visit Chronic pain Lumbosacral spondylosis Sacroiliitis Chronic pain Lumbar radiculopathy Lumbosacral spondylosis Sacroiliitis Assessments No Assessments Information AvailableNo Assessments Information AvailableNo Assessments Information AvailableNo Assessments Information AvailableNo Assessments Information AvailableNo Assessments Information Available Additional Source Comments INFORMATION SOURCE (unrecogn ized section and content) DATE CREATED AUTHOR 07/25/2019 [facility] DATE CREATED AUTHOR AUTHOR'S ORGANIZ ATION 12/27/2022 [facility] DATE CREATED AUTHOR AUTHOR'S ORGANIZ ATION 02/15/2023 [facility] DATE CREATED AUTHOR AUTHOR'S ORGANIZ ATION 10/21/2023 [facility] EPIC DATE CREATED AUTHOR AUTHOR'S ORGANIZ ATION 03/19/2024 [facility] REASON FOR VISIT (unrecogniz ed section and content) LEFT L3,4 TRANSFORAMINAL EPIDURAL STEROID INJ/ELREF BY [facility] FOR LUMBAR DISC HERNIATIONFOLLOW UP AFTER LEFT LTRBILATERAL SACROILIAC JOINT INJECTIONINCREASE BACK PAIN RADIATING LLELEFT L3 AND L4 TRANSFORAMINAL EPIDURAL STEROID INJECTIONF/U INCREASE IN LOW BACK PAIN AND LEFT LE WEAKNESS-LOST TO FOLLOW UP LAST TIMEL4- 5 EPIDURAL STEROID INJ/ELRIGHT SACROILIAC JOINT INJ/EL Care Teams (unrecognized sec tion and content) Team Status: Inactive Member Role Status Dates [facility] Primary Care Provider Active SINDY SharpC Attending Provider Active Team Status: Active Member Role Status Lorie Velázquez MD Attending Provider Active Services Family [facility] Primary Care Provider Active Team Status: Inactive Member Role Status Dates [facility] Primary Care Provider Titus Alvarado DO Emergency Provider Active Team Status: Inactive Member Role Status Dates [facility] Primary Care Provider Titus Pettit PANEL GLUER-C Attending Provider Active Team Status: Inactive Member Role Status Dates [facility] Primary Care Provider Titus Bergeron APRN Emergency Provider Active Team Status: Active Member Role Status Dates [facility] Primary Care Provider Titus dos santos Team Status: Inactive Member Role Status Lorie Pettit PANEL GLUER-C Attending Provider Active Services [facility] Primary Care Provider Titus dos santos Team Status: Inactive Member Role Status Dates [facility] Primary Care Provider Titus Miramontes MD Attending Provider Active Team Status: Inactive Member Role Status Lorie Pettit NP-C Attending Provider Active Team Status: Active Member Role Status Lorie . [facility] Primary Care Provider Active Team Status: Inactive Member Role Status Lorie Miramontes MD Attending Provider Active . [facility] Primary Care Provider Active Team Status: Inactive Member Role Status Dates Ajit E Spasic , PANEL GLUER-C Attending Provider Active NON STAFF Primary Care Provider Active Team Status: Active Member Role Status Dates Ajit E Spasic , PANEL GLUER-C Primary Care Provider Active Team Status: Inactive Member Role Status Dates Ajit E Spasic , PANEL GLUER-C Primary Care Provider, Attending Provider Active Team Status: Inactive Member Role Status Dates Kyler Miramontes MD Attending Provider Active Ajit E Spasic , PANEL GLUER-C Primary Care Provider Active Team Status: Inactive Member Role Status Dates Ajit E Spasic , PANEL GLUER-C Primary Care Provider Active Kyler Miramontes MD Attending Provider Active Team Status: Inactive Member Role Status Dates Ajit E Spasic , PANEL GLUER-C Primary Care Provider Active Carri Manuel DO Attending Provider Active Team Status: Inactive Member Role Status Dates Beltran Pavon MD Admit Provider Active Pastora Calderon , JULIANA Other Provider Active Sarina Danielle , JULIANA Other Provider Active Bernie Brar , JULIANA Other Provider Active Karuna Flro , JULIANA Other Provider Active Lakshmi Manzano , JULIANA Other Provider Active Tracy Sun , JULIANA Other Provider Active Silvia Galeas , GRIP WRAPPER Other Provider Active Evan Jackson , DO Other Provider Active Familia Blair MD Other Provider Active Brandon Dowling , DO Other Provider Active Florin Cruz MD Other Provider Active Vivi Holloway MD Other Provider Active Ilene Lopez , GRIP WRAPPER Other Provider Active Lilly Alexandre MD Other Provider Active Rangel Tyler MD Other Provider Active Aidan Cardenas MD Other Provider Active Holden De La Cruz MD Other Provider Active Leodan Catalan , DO Other Provider Active Palma Bright MD Other Provider Active Gabriele Vasquez MD Other Provider Active Karina Colvin , PANEL GLUER-C Other Provider Active Gaurav Peraza MD Other Provider Active Mike Guzman MD Other Provider Active Antonio Teague MD Other Provider Active Jorge Galdamez MD Other Provider Active Kourtney Longoria , DO Other Provider Active Bola Sullivan , DO Other Provider Active Lazaro Dunne , DO Other Provider Active Elvira Nava , GRIP WRAPPER Other Provider Active Salazar Cabrera , DO Attending Provider, Other Provider Active Naila Lema MD Other Provider Active Namrata Munoz , GRIP WRAPPER Other Provider Active Carole Lundy , GRIP WRAPPER Other Provider Active Rosanna Grullon MD Other Provider Active Girish Tolentino MD Other Provider Active Beryl Holguin , GRIP WRAPPER Other Provider Active Mabel Lackey , DO Other Provider Active Talita Noel RN Other Provider Active Teo Taylor MD Other Provider Active Ajit E Spasic , PANEL GLUER-C Primary Care Provider Active Team Status: Inactive Member Role Status Dates Ajit E Spasic , PANEL GLUER-C Primary Care Provider Active Diego Noble , DO Emergency Provider Active Team Status: Inactive Member Role Status Dates Ajit E Spasic , PANEL GLUER-C Attending Provider Active Start: January 18, 2024 End: January 18, 2024 Team Status: Inactive Member Role Status Dates Ajit E Spasic , PANEL GLUER-C Primary Care Provi tirso, Attending Provider Active Start: January 21, 2024 End: January 21, 2024 Team Status: Inactive Member Role Status Dates Ajit E Spasic , PANEL GLUER-C Primary Care Provi tirso, Attending Provider Active Start: February 04, 2024 End: February 04, 2024 Team Status: Inactive Member Role Status Dates Ajit E Spasic , PANEL GLUER-C Primary Care Provi tirso, Attending Provider Active Start: February 09, 2024 End: February 09, 2024 Team Status: Inactive Member Role Status Dates Ajit E Spasic , PANEL GLUER-C Primary Care Provider Active Start: February 21, 2024 End: February 21, 2024 Kyler Miramontes MD Attending Provider Active Sta rt: February 21, 2024 End: February 21, 2024 Team Status: Inactive Member Role Status Dates Ajit E Spasic , PANEL GLUER-C Primary Care Provider Active Start: March 01, 2024 End: March 01, 2024 Kyler Miramontes MD Attending Provider Active Sta rt: March 01, 2024 End: March 01, 2024 Team Status: Active Member Role Status Dates Ajit E Spasic , PANEL GLUER-C Primary Care Provider Active Start: March 01, 2024 Kyler Miramontes MD Attending Provider, Other Provider Active Start: March 01, 2024 Team Status: Inactive Member Role Status Dates Ajit Pettit PANEL GLUER-C Primary Care Provider Active Start: March 02, 2024 End: March 02, 2024 Kyler Miramontes MD Attending Provider Active Sta rt: March 02, 2024 End: March 02, 2024 Team Status: Inactive Member Role Status Dates Ajit Pettit PANEL GLUER-C Primary Care Provider Active Start: March 08, 2024 End: March 08, 2024 Kyler Miramontes MD Attending Provider Active Sta rt: March 08, 2024 End: March 08, 2024 Team Status: Inactive Member Role Status Dates Ajit Pettit PANEL GLUER-C Primary Care Provider Active Start: March 16, 2024 End: March 16, 2024 Abi Sunshine DO Attending Provider Active St art: March 16, 2024 End: March 16, 2024 Team Status: Active Member Role Status Dates Ajit Pettit PANEL GLUER-C Primary Care Provider Active Start: March 16, 2024 Abi Sunshine DO Attending Provider, Other Provider Active Start: March 16, 2024 Goals (unrecognized section and content) Goals may [...] BE BASED ON THE PRIMARY CLINICAL RECORDS. [employer] provides no warranty or guarantee of the accuracy or completeness of information in this document.
[2024-03-26 03:42] VITALS: BP 151/93; PULSE 82; TEMP 36.7; O2SAT 99; BMI 25.0
--- NOTE | 2024-03-26 03:58 | ED_ITS ---
HPI HPI - General Adult General Chief complaint: Headache Stated complaint: headache Time Seen by Provider: 03/26/24 03:51 Source: patient Mode of arrival: walk-in Limitations: no limitations History of Present Illness HPI narrative: patient presents complaining of migraine for couple of days. Starts at forehead and radiates to her neck as usual. Neck is not stiff. no fever. nauseated but has not vomited. Similar to past migraines. No fever Related Data Home Medications ?Medication ?Instructions ?Recorded ?Confirmed cariprazine 1.5 mg capsule 1.5 mg PO DAILY 04/20/23 03/26/24 (Vraylar) diazepam 5 mg tablet 5 mg PO DAILY 04/20/23 03/26/24 divalproex 250 mg tablet,delayed 250 mg PO DAILY 04/20/23 03/26/24 release divalproex 500 mg tablet,extended 500 mg PO DAILY 04/20/23 03/26/24 release 24 hr doxazosin 2 mg tablet 2 mg PO DAILY 04/20/23 03/26/24 dulaglutide 0.75 mg/0.5 mL 0.75 mg subcut DAILY 04/20/23 04/20/23 subcutaneous pen injector (Trulicity) dulaglutide 1.5 mg/0.5 mL 1.5 mg subcut DAILY 04/20/23 04/20/23 subcutaneous pen injector (Trulicity) ergocalciferol (vitamin D2) 1,250 1,250 mcg PO DAILY 04/20/23 03/26/24 mcg (50,000 unit) capsule ferrous sulfate 325 mg (65 mg 325 mg PO DAILY 04/20/23 03/26/24 iron) tablet (FeroSul) gabapentin 800 mg tablet 800 mg PO DAILY 04/20/23 03/26/24 metformin 500 mg tablet,extended 500 mg PO DAILY 04/20/23 03/26/24 release 24 hr tizanidine 4 mg capsule 8 mg PO BID PRN muscle spasticity 04/20/23 03/26/24 dulaglutide 3 mg/0.5 mL 3 mg subcut .weekly 03/26/24 03/26/24 subcutaneous pen injector (Trulicity) ketorolac 10 mg tablet 10 mg PO Q6H PRN pain 03/26/24 03/26/24 meloxicam 15 mg tablet 15 mg PO DAILY 03/26/24 03/26/24 multivitamin-ferrous 1 tab PO Q24H 03/26/24 03/26/24 fumarate-folic acid 18 mg-400 mcg tablet (Spectravite Women) ondansetron HCl 4 mg tablet mg 03/26/24 sertraline 100 mg tablet 100 mg PO Q24H 03/26/24 03/26/24 simvastatin 20 mg tablet 20 mg PO DAILY 03/26/24 03/26/24 tizanidine 4 mg tablet 4 mg PO Q8H PRN muscle spasticity 03/26/24 03/26/24 Allergies Allergy/AdvReac Type Severity Reaction Status Date / Time amitriptyline Allergy dizzy Verified 03/26/24 03:42 latex Allergy hives Verified 03/26/24 03:42 sulfamethoxazole Allergy Hives Verified 03/26/24 03:42 [From Bactrim] tramadol [From Ultram] Allergy seizures Verified 03/26/24 03:42 trimethoprim [From Bactrim] Allergy Hives Verified 03/26/24 03:42 Opioid HPI Opioid Management Most Recent Opioid Data: Last Pain Scale 6 10/07/23 22:00 Review of Systems ROS Status of ROS 10 or more systems reviewed and unremark able except as noted in history and below PFS PFS Social History Smoking status: Current every day smoker Exam Constitutional Vital Signs, click to edit/add: Last Vital Signs Temp 98.0 F 03/26/24 03:42 Pulse 63 03/26/24 05:06 Resp 18 03/26/24 05:06 BP 126/81 03/26/24 05:06 Pulse Ox 96 03/26/24 05:06 O2 Del Method Room Air 03/26/24 05:06 Common normals: no apparent distress, average body habitus, oriented x3, no limitations, healthy appearing, alert and well nourished [facility] Common normals: normocephalic and head/scalp atraumatic Eye Common normals: PERRL and EOMs intact bilaterally Respiratory Common normals: normal respiratory effort, no retractions, no use of accessory muscles and clear to auscultation bilaterally Cardio Common normals: regular rate, regular rhythm, S1 normal heart sound and S2 normal heart sound GI Common normals: Normal to inspection, nondistended, normoactive bowel sounds present, soft to palpation and non-tender Extremity Common normals: normal to inspection and full ROM Neuro Common normals: oriented x3, CN's II-XII intact bilaterally, moves all extremities and no focal motor deficits Psych Appearance: grossly normal Course Vital Signs Vital signs: Vital Signs Temperature 98.0 F 03/26/24 03:42 Pulse Rate 82 03/26/24 03:42 Respiratory Rate 16 03/26/24 03:42 Blood Pressure 151/93 H 03/26/24 03:42 Pulse Oximetry 99 03/26/24 03:42 Oxygen Delivery Method Room Air 03/26/24 03:42 Temperature 98.0 F 03/26/24 03:42 Pulse Rate 63 03/26/24 05:06 Respiratory Rate 18 03/26/24 05:06 Blood Pressure 126/81 03/26/24 05:06 Pulse Oximetry 96 03/26/24 05:06 Oxygen Delivery Method Room Air 03/26/24 05:06 Medical Decision Making MDM Narrative Medical decision making narrative: patient presents with migraine headache. similar to past migraines. treated in the department and headache improved and she felt she could go home in rest. Discharged home in care of her . labs with leukocytosis related to pain. No clinical findings of infection Lab Data Labs: Lab Results 03/26/24 Range/Units 04:10 WBC 17.5 H (4.0-11.0) 10^3/uL RBC 4.14 L (4.20-5.40) 10^6/uL Hgb 12.6 (12.0-16.0) g/dL Hct 36.1 (36.0-48.0) % MCV 87.2 (81.0-99.0) fL MCH 30.4 (26.7-34.0) pg MCHC 34.9 (29.9-35.2) g/dL RDW 12.6 (11.0-15.0) % Plt Count 288 (150-450) 10^3/uL MPV 8.9 L (9.5-13.5) fL Seg Neuts % (Manual) 63.0 Band Neutrophils % 0.0 (0-5) % Lymphocytes % (Manual) 29.0 (20.5-60.0) % Atypical Lymphs % (Man) 1.0 % Monocytes % (Manual) 5.0 (1.7-12.0) % Eosinophils % (Manual) 2.0 (0.9-7.0) % Basophils % (Manual) 0.0 L (0.2-2.0) % Neutrophils # (Manual) 11.02 H (1.4-6.5) 10^3/uL Band Neutrophils # 0.0 (0.0-0.3) 10^3/uL Lymphocytes # (Manual) 5.07 H (1.20-3.80) 10^3/uL Abs Atypical Lymphs Man 0.17 Monocytes # (Manual) 0.87 H (0.30-0.80) 10^3/uL Eosinophils # (Manual) 0.35 (0.00-0.70) 10^3/uL Basophils # (Manual) 0.00 (0.00-0.10) 10^3/uL Sodium 125 L (136-145) mmol/L Potassium 3.4 L (3.5-5.1) mmol/L Chloride 92 L (98-107) mmol/L Carbon Dioxide 25.4 (21.0-32.0) mmol/L Anion Gap 11.0 BUN 14.0 (7.0-18.0) mg/dL Creatinine 0.60 (0.55-1.02) mg/dL Est GFR ( Amer) >60 (>=60) Est GFR (Non-Af Amer) >60 (>=60) BUN/Creatinine Ratio 23.3 Glucose 130 H (74-106) mg/dL Calcium 8.1 L (8.5-10.1) mg/dL Discharge Plan Discharge Stand Alone Forms: Portal Instructions Chief Complaint: Headache Clinical Impression: Migraine Patient Disposition: Home, Self-Care Prescriptions / Home Meds: No Action Trulicity 3 mg/0.5 mL pen injector 3 mg SUBCUT .weekly ketorolac 10 mg tablet 10 mg PO Q6H PRN (Reason: pain) meloxicam 15 mg tablet 15 mg PO DAILY Spectravite Women 18-400 mg-mcg tablet 1 tab PO Q24H ondansetron HCl 4 mg tablet sertraline 100 mg tablet 100 mg PO Q24H simvastatin 20 mg tablet 20 mg PO DAILY tizanidine 4 mg tablet 4 mg PO Q8H PRN (Reason: muscle spasticity) Vraylar 1.5 mg capsule 1.5 mg PO DAILY diazepam 5 mg tablet 5 mg PO DAILY divalproex 250 mg tablet,delayed release (DR/EC) 250 mg PO DAILY divalproex 500 mg tablet extended release 24 hr 500 mg PO DAILY doxazosin 2 mg tablet 2 mg PO DAILY Trulicity 0.75 mg/0.5 mL pen injector 0.75 mg SUBCUT DAILY Trulicity 1.5 mg/0.5 mL pen injector 1.5 mg SUBCUT DAILY ergocalciferol (vitamin D2) 1,250 mcg (50,000 unit) capsule 1,250 mcg PO DAILY ferrous sulfate [FeroSul] 325 mg (65 mg iron) tablet 325 mg PO DAILY gabapentin 800 mg tablet 800 mg PO DAILY tizanidine 4 mg capsule 8 mg PO BID PRN (Reason: muscle spasticity) metformin 500 mg tablet extended release 24 hr 500 mg PO DAILY Print Language: Macedonian Instructions: Migraine Headache (ED) Additional Instructions: follow up with your doctor next week Referrals: Physician,Non-Staff, MD [Primary Care Provider] - 1 week
[2024-03-26] MEDS: DIPHENHYDRAMINE HCL 50 MG/ML VIAL IV (04:17)
[2024-03-26] MEDS: METHYLPREDNISOLONE SOD SUCC PF 125 MG/2 ML VIAL IVP (04:17)
[2024-03-26] MEDS: METOCLOPRAMIDE HCL 10 MG/2 ML VIAL IVP (04:17)
[2024-03-26 04:21] LABS: Hematocrit 36.1 % (36.0-48.0); Hemoglobin 12.6 g/dL (12.0-16.0); Mean Corpuscular HGB Conc 34.9 g/dL (29.9-35.2); Mean Corpuscular Hemoglobin 30.4 pg (26.7-34.0); Mean Corpuscular Volume 87.2 fL (81.0-99.0); Mean Platelet Volume 8.9 fL (9.5-13.5); Platelet Count 288 10^3/uL (150-450); Red Blood Count 4.14 10^6/uL (4.20-5.40); Red Cell Distribution Width 12.6 % (11.0-15.0); White Blood Count 17.5 10^3/uL (4.0-11.0)
[2024-03-26 04:35] LABS: BUN Creatinine Ratio 23.3; Calcium 8.1 mg/dL (8.5-10.1); Carbon Dioxide 25.4 mmol/L (21.0-32.0); Chloride 92 mmol/L (98-107); Estimated GFR (African America >60 (>=60); Estimated GFR (Non-African Ame >60 (>=60); Glucose 130 mg/dL (74-106); Potassium 3.4 mmol/L (3.5-5.1); Sodium 125 mmol/L (136-145)
[2024-03-26 04:53] LABS: Atypical Lymphocytes Abs Man 0.17; Eosinophils Absolute Manual 0.35 10^3/uL (0.00-0.70); Lymphocytes Absolute Manual 5.07 10^3/uL (1.20-3.80); Monocytes Absolute Manual 0.87 10^3/uL (0.30-0.80); Segmented Neut Absolute Manual 11.02 10^3/uL (1.4-6.5)
[2024-03-26] MEDS: MAGNESIUM SULFATE IN WATER 2 GM/50 ML PREMIX IV (05:02)
[2024-03-26 05:06] VITALS: BP 126/81; PULSE 63; O2SAT 96
== END 2024-03-26 06:24 | disposition home or self-care (01) ==
PROVIDERS: Emergency Provider Internal Medicine
DX: G43.909 Migraine, unspecified, not intractable, without status migrainosus (principal); F17.200 Nicotine dependence, unspecified, uncomplicated
CPT/HCPCS: 36415; 80048; 85007; 85027; 96365; 96375; 99284; J1200; J2765; J2919; J3475

== ENCOUNTER 2024-04-03 07:45 | Emergency (ER) | payer OTHER, SELFPAY ==
[2024-04-03 07:46] VITALS: BP 137/97; PULSE 89; TEMP 36.5; O2SAT 100; BMI 25.2
--- OUTSIDE RECORDS SUMMARY | 2024-04-03 07:59 | XMS_ITS | CCD ---
Author Organization [facility] CliniSymn Care Team Providers Care Clinical Product Manager Name Role Phone Ajit Pettit Primary Care Provider Ajit Pettit Attending Provider [facility] Primary Care Provider [phone] [facility] Primary Care Provider Ajit Pettit Attending Provider [phone] Kyler Miramontes Unavailable Girish Callaway Unavailable [facility] Primary Care Prov ider CHRISTINA Bergeron Emergency Provider OLEG Pettit Attending Provider DO Rod Alvarado Emergency Provider MD Jasmin Velázquez Attending Provider [phone] [facility] Primary Care Provider MD Jasmin Velázquez Attending Provider [facility] Primary Care Provider AJIT PETTIT Primary Care Physician [facility] Primary Care Prov ider MD Kyler Miramontes Attending Provider [phone] OLEG Pettit Attending Provider [phone] Joshua PRESTON Attending Unavailable Joshua PRESTON Attending Unavailable Joshua PRESTON Attending Unavailable NONE, XXXX Referring Unavailable Joshua PRESTON Admitting Unavailable Joshua PRESTON Referring Unavailable Joshua PRESTON Attending Unavailable PAVON, PENOLA Referring Unavailable COOK, Joshua P Attending Unavailable [facility] Primary Care Prov ider MD Kyler Miramontes Attending Provider Spasic, PROFESSOR OF EXERCISE SCIENCE-C Ajit Shelton Attending Provider MARKER ., DR [...] Unavailiker e MD Kyler Miramontes Attending Provider [phone] [facility], . Primary Care Provider Spasic, PROFESSOR OF EXERCISE SCIENCE-C Ajit E Primary Care Provider [phone] Spasic, PROFESSOR OF EXERCISE SCIENCE-C Ajit E Attending Provider [facility] Primary Care Prov ider Visccatrina, DO Ferguson Attending Provider [phone] Spasic, PROFESSOR OF EXERCISE SCIENCE-C Ajit E Primary Care Provider Visccatrina, DO Ferguson Attending Provider Spasic, PROFESSOR OF EXERCISE SCIENCE-C Ajit E Primary Care Provider [phone] Visccatrina, DO Ferguson Attending Provider MD Agustin Penola P Admit Provider JULIANA Calderon Other Provider Unavailable JULIANA Danielle Other Provider Unavailable JULIANA Brar Other Provider Unavailable JULIANA Flor Other Provider Unavailable JULIANA Manzano Other Provider Unavailable JULIANA Sun Other Provider Unavailable Dials, CHEMICAL PUMPER Silvia Ramirez Other Provider [phone] DO Evan Jackson Other Provider [phone] MD Familia Blair Other Provider DO [...] Tolentino Other Provider CHRISTINA Holguin Other Provider [phone] DO Ziyad Yazid Other Provider JULIANA Noel Other Provider Unavailable MD Teo Taylor Other Provider Real DO [place] Emergency Provider CARRI MANUEL Attending Unavailable Spasic, PROFESSOR OF EXERCISE SCIENCE-C Ajit E Attending Provider Spasic, PROFESSOR OF EXERCISE SCIENCE-C Ajit E Attending Provider Spasic, PROFESSOR OF EXERCISE SCIENCE-C Ajit E Primary Care Provider MD Kyler Miramontes Attending Provider [phone] Bita, DO Abi Ackerman Attending Provider Kyler Miramontes Admitting Unavailable Kyler Miramontes Attending Unavailable Spasic, Ajit E Primary Care Unavailable Spasic, Ajit E Attending Unavailable Spasic, Ajit E Admitting Unavailable [facility] Primary Care U navailable Spasic, Ajit E Attending Unavailable Spasic, Ajit E Admitting Unavailable Spasic, Ajit E Primary Care Unavailable Abi Sunshine Attending Unavailable Abi Sunshine Admitting Unavailable Spasic, Ajit E Primary Care Unavailable Salazar Cabrera Attending Unavailable Beltran Pavon Admitting Unavailable Pastora Calderon Consulting Unavailable Sarina Danielle Consulting Unavailable Bernie Brar Consulting Unavailable Karuna Flor Consulting Unavailable Natacha Lakshmi Consulting Unavailable Tracy Sun Consulting Unavailable Silvia [...] Colvin Consulting Unavailable Gaurav Peraza Consulting Unavailab le Thomas, Mike Consulting Unavailable Antonio Teague Consulting Unavailable [...] Noel Consulting Unavailable Teo Taylor Consulting Unavailab le Spasic, Ajit E Primary Care Unavailable Visccatrina, Carri Admitting Unavailable Visci, Carri Attending Unavailable Spasic, Ajit E Attending Unavailable Spasic, Ajit E Admitting Unavailable Spasic, Ajit E Primary Care Unavailable Spasic, Ajit Shelton Attending Unavailable Spasic, Ajit E Admitting Unavailable Spasic, Ajit E Primary Care Unavailable Spasic, Ajit E Attending Unavailable Spasic, Ajit E Admitting Unavailable Spasic, Ajit E Primary Care Unavailable Diego Noble Attending Unavailable Spasic, Ajit E Primary Care Unavailable Diego Noble Admitting Unavailable Fe, Kyler S Admitting Unavailable Fe, Kyler S Attending Unavailable Spasic, Ajit E Primary Care Unavailable Fe, Kyler S Attending Unavailable Spasic, Ajit E Primary Care Unavailable Fe, Kyler S Admitting Unavailable Spasic, Ajit E Primary Care Unavailable Visci, Carri Admitting Unavailable Visci, Carri Attending Unavailable Spasic, Ajit E Primary Care Unavailable Visci, Carri Admitting Unavailable Visci, Carri Attending Unavailable Fe, Kyler S Admitting Unavailable Spasic, Ajit E Primary Care Unavailable Fe, Kyler S Attending Unavailable Spasic, Ajit E Primary Care Unavailable Visci, Carri Attending Unavailable Visci, Carri Admitting Unavailable Fe, Kyler S Admitting Unavailable Fe, Kyler S Attending Unavailable [facility], . Primary Care Unavaila ble Unavailable Unavailable Unavailable Allergies Allergy Classification Reported Allergen(s) Allergy Type Date of Onset Reaction(s) Facility Opioid Agonists (1 source) traMADol Drug Allergy 09-24-20 Seizure [facility] Serotonin Reuptake Inhibitors (SSRIs) (1 source) Escitalopram Drug Allergy 09-24-20 Difficulty Breathing [facility] (20 sources) Escitalopram; Translations: [escitalopram] Drug Allergy 09-24-20 Difficulty Breathing [facility] (20 sources) traMADol; Translations: [tramadol] Drug Allergy 09-24-20 Seizure, Unknown, seizures [facility] (20 sources) Amitriptyline; Translations: [Amitriptyline] Drug Allergy 05-27-20 [facility] (20 sources) natural latex rubber; Translations: [Latex, Natural Rubber] Allergy to substance 05-27-20 Unknown Reaction, [facility] (20 sources) Sulfamethoxazole; Translations: [sulfamethoxazole] Drug Allergy 05-27-20 [facility] (20 sources) Trimethoprim; Translations: [trimethoprim] Drug Allergy 05-27-20 [facility] (6 sources) Latex; Translations: [Latex] Drug allergy Weal (disorder) [facility] (5 sources) Sulfamethoxazole / Trimethoprim; Translations: [sulfamethoxazole-tr imethoprim] Drug Allergy Unknown (qualifier value) [facility] (1 source) traMADol; Translations: [Ultram] Drug Allergy [facility] (1 source) Sulfamethoxazole / Trimethoprim Drug Allergy [facility] (1 source) Ultra Juancarlos Gold Drug allergy (disorder) [facility] (14 sources) nonoxynol 9; Translations: [nonoxynol 9] Allergy to substance 09-16-20 [facility] Medications Current Medications Medication Drug Class(es) Dates Sig (Normalized) Sig (Original) Tylenol (20 sources) Start: 07-31-2022 Tylenol Oral, Refills(s) 0 Start Date: 07/31/22 Status: Ordered Start: 03-04-2022 take 1 capsule by [facility] daily Acetaminophen (Tylenol) 325 mg [...] Daily, # 30 tab(s), Refills(s) 3, Pharmacy: [facility] [id number], 166, cm, 11/02/22 10:50:00 EST, Height/Length Dosing, [...] sources) Provitamin D2 Compound Start: 06-30-2023 take 28183 [IU] by mouth every week Ergocalciferol (Vitamin D2) Active 79284 UNIT PO every week June 30, 2023 [...] Start: 10-27-2019 take 2 tablets by mo [facility] three times daily LORazepam 0.5 mg Tab mg tab(s), Oral, TID, Refills(s) 0 Start Date: 10/27/19 Status: Ordered take 1 tablet by [facility] every six hours LORazepam 0.5 MG 1 [...] 08, 2017 12:00am take 1 capsule by [facility] every eight hours tiZANidine HCl [...] Start: 03-13-2018 take 2 tablets by mo [facility] twice daily Divalproex (Depakote) 250 mg Tablet,Delayed [...] tablet by mouth every six hours Hydrocodone-Acetaminophen ([place]) 5-325 mg tablet Discontinued 1 TAB PO Q6H 7 September 29, 2018 May 18, 2022 11:27am Start: 03-13-2018 End: 04-24-2018 take 1 tablet by mouth every four to six hours Hydrocodone-Acetaminophen ([place]) 5-325 mg tablet Discontinued 1 TAB PO [...] later, # 2 cap(s), Refills(s) 0, Pharmacy: [facility] [id number] Start Date: 07/31/22 Status: Ordered ciprofloxacin 500 [...] / neomycin 3.5 mg/ml / polymyxin b 15628 unt/ml otic suspension (20 sources) Aminoglycoside Antibacterial, Polymyxin-class Antibacterial, Corticosteroid Start: 09-21-2018 End: 10-01-2018 Sjvwuvqb-Zvunpniny-Ep Discontinued 4 DROPS OTIC Q6H 15 September [...] Other intermediate (current) drug therapy; Translations: [OTH JAIL 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 THERAPY] Onset: 02-02-2023 Episodic Other aftercare (1 source) 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; Translations: [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 GLUING USE ORAL HYPOGLYCEMIC DX] Onset: 02-02-2023 Episodic [...] bowel syndrome] Onset: 10-07-2023 10-09-2023 Chronic Other gastrointestinal disorders (1 source) Diarrhea, unspecified; Translations: [Diarrhea, unspecified] Onset: 03-16-2024 Episodic Other hematologic conditions (12 sources) H/O: blood [...] sources) Cervicalgia; Translations: [Radiculopathy, lumbar region] Onset: 04-13-2022 Resolved: 02-19-2022 Episodic Unclassified (1 source) Low back pain at multiple sites M54.50 Onset: 01-14-2022 Resolved: 01-14-2022 Results Test Name Value Interpretation Reference Range Facility Capillary blood glucose ashwini urement by glucometer (mass/volume)Ordered By: Abi Sunshine on 03-16-2024 Glucose [Mass/Vol] 140 mg/dL Normal [facility] Comment on above: Random Glucose Refer ence Range is dependent on time and content of last meal. Glucose of more than 200 mg/dL in a nonstressed, ambulatory subject supports the diagnosis of Diabetes Mellitus. Result Comment: [place] om Glucose Reference Range is dependent on time and content of last meal. Glucose of more than 200 mg/dL in a nonstressed, ambulatory subject supports the diagnosis of Diabetes Mellitus. PERFORMED BY: [place] [address] PATHOLOGIST PHOSPHORUS PROCESSING SUPERVISOR RIDGE HUERTA M.D. Performed By: #### C BC, CMP, FE and TIBC, LIPID, URMA, LDLD #### [facility] [address] [place] [address] Mark 03-16-2024 L Specimen: [id number] Received: 03/16/24 Status: BLUE Neal Num: [id number] Spec Type: Surgical Subm Dr: Abi Sunshine DO Tissues: A Colon Biopsy (RT RANDOM COLON BX) B Colon Biopsy (RANDOM LT) C Colon Biopsy (TRANSV POLYPS) D Colon Biopsy (RECTAL POLYP) Procedures: HE/8, Gross/Micro L4/4 Age/ Patient Sex Location Account Attending Physician Rachel Mcgarry 44/F [id number] Abi Sunshine DO SPEC NUM: [id number] RECD: 03/16/24 STATUS: BLUE NEAL NUM: [id number] JOSEPH: 03/16/24- SUBM DR: Abi Sunshine DO ENTERED: 03/16/[address] [facility] [address]: SPEC TYPE: Surgical DEPT: S ORDERED: [...] -Serrated hyperplastic polyp in both fragments Specimen: [id number] Received: 03/16/24 Status: BLUE Neal Num: [id number] Spec Type: Surgical Subm Dr: Abi Sunshine DO Tissues: A Colon Biopsy (RT RANDOM COLON BX) B Colon Biopsy (RANDOM LT) C Colon Biopsy (TRANSV POLYPS) D Colon Biopsy (RECTAL POLYP) Procedures: ÁNGEL/Dagoberto, Gross/Claude L4/4 Patient: Rachel Mcgarry [id number] (Continued) Specimen: [id number] Received: 03/16/24 (Continued) Signed (signature on file) Philomena Grimm MD 03/18/24 1111 Specimen: [id number] Received: 03/16/24 Status: BLUE Britoeduarda Num: [id number] Spec Type: Surgical Subm Dr: Abi Sunshine DO Tissues: A Colon Biopsy (RT RANDOM COLON BX) B Colon Biopsy (RANDOM LT) C Colon Biopsy (TRANSV POLYPS) D Colon Biopsy (RECTAL POLYP) Procedures: HE/Dagoberto, Gross/Micro L4/4 Patient: Rachel Mcgarry [id number] (Continued) Specimen: [id number] Received: 03/16/24 (Continued) Clinical Information Screening, diarrhea. [...] cm, entirely submitted in D1. CPT Codes 89428I6 Specimen: [id number] Received: 03/16/24 Status: BLUE Neal Num: [id number] Spec Type: Surgical Subm Dr: Abi Sunshine DO Tissues: A Colon Biopsy (RT RANDOM COLON BX) B Colon Biopsy (RANDOM LT) C Colon Biopsy (TRANSV POLYPS) D Colon Biopsy (RECTAL POLYP) Procedures: HE/Dagoberto, Gross/Micro L4/4 Patient: Rachel Mcgarry [id number] (Continued) Signed (signature on file) Philomena Grimm MD 03/18/24 1111 Normal [facility] XR lumbar spine AP/LAT/FLX/E XTon 03-02-2024 XR lumbar spine AP/LAT/FLX/EXT [facility] [place] [address] XRay Report Signed Patient: Rachel Mcgarry MR#: [id number] 1 : 1980 Acct:[id number] Age/Sex: 44 / F ADM Date: 03/02/24 Loc: XD Room: Type: [facility] Attending Dr: Kyler Miramontes MD Copies to: [...] STUDY. Impression dictated by: Andrés Yeboah Jr., D.OPanchito03/02/2024 2:52 PM Dictation Location: [place] [address] Transcribed By: [facility] 03/02/24 1453 Dictated By: Andrés Yeboah Jr, DO 03/02/24 1444 Signed By: 03/02/24 1452 Normal [facility] US breast RT limitedon 02-08 US breast RT limited [facility] [place] [address] [place] [address] Ultrasound Report Signed Patient: Rachel Mcgarry MR#: [id number] 1 : 1980 Acct:[id number] Age/Sex: 44 / F ADM Date: 02/09/24 Loc: [facility] Room: Type: [facility] Attending Dr: Ajit DEJESUS Ordering Provider: OLEG [...] Dar Messina M.D.02/09/2024 9:33 AM Dictation Location: [facility] Tech: Janet Krause Transcribed By: ROSA MARIA 02/09/2433 Dictated By: Dar Messina II, MD 02/09/2429 Signed By: 02/09/24932 Normal [facility] MM screening mammo BI w/CADo n 02-04-2024 MM screening mammo BI w/CAD [facility] [place] [address] [place] [address] Mammography Report Signed Patient: Rachel Mcgarry MR#: [id number] 1 : 1980 Acct:[id number] Age/Sex: 44 / F ADM Date: 02/04/24 Loc: [place] Room: Type: [facility] Attending Dr: Ajit DEJESUS Copies to: OLEG [...] Eda Yañez M.D.02/04/2024 2:28 PM Dictation Location: [facility] Transcribed By: ROSA MARIA 02/04/24 1428 Dictated By: Eda Yañez MD 02/04/24 1418 Signed By: 02/04/24 1428 Normal [facility] US renal BIon 01-21-2024 US renal BI [facility] [place] [address] [place] [address] Ultrasound Report Signed Patient: Rachel Mcgarry MR#: [id number] 1 : 1980 Acct:[id number] Age/Sex: 44 / F ADM Date: 01/21/24 Loc: Room: Type: [facility] Attending Dr: Ajit DEJESUS Ordering Provider: OLEG [...] findings. Impression dictated by: Andrés Yeboah Jr., D.O.01/21/2024 2:50 PM Dictation Location: [place] [address] Tech: Mariza Uribeyenny Transcribed By: [facility] 01/21/24 1450 Dictated By: Andrés Yeboah Jr, DO 01/21/24 1450 Signed By: 01/21/24 1450 Normal [facility] Alanine aminotransferase [En zymatic activity/volume] in Serum or PlasmaOrdered By: Ajit Pettit on 01-18-2024 ALT [Catalytic activity/Vol] 8 U/L Normal [facility] Comment on above: Order Comment: Reaso n for Exam Type 2 diabetes mellitus without complication, without long- Performed By: #### C BC, CMP, FE and TIBC, LIPID, URMA, LDLD #### [facility] [address] [place] [address] [place] Albumin [Mass/volume] in Ser um or Plasma by Bromocresol green (BCG) dye binding methoOrdered By: Ajit Pettit on 01-18-2024 Albumin BCG dye [Mass/Vol] 4.1 g/dL 3.5-5.7 [facility] Alkaline phosphatase [Enzyma tic activity/volume] in Serum or PlasmaOrdered By: Ajit Pettit on 01-18-2024 ALP [Catalytic activity/Vol] 58 U/L Normal 34-104 [facility] Comment on above: Order Comment: Reaso n for Exam Type 2 diabetes mellitus without complication, without long- Performed By: #### C BC, CMP, FE and TIBC, LIPID, URMA, LDLD #### [facility] [address] Aspartate aminotransferase [ Enzymatic activity/volume] in Serum or PlasmaOrdered By: Ajit Pettit on 01-18-2024 AST [Catalytic activity/Vol] 9 U/L Low 13-39 [facility] Comment on above: Order Comment: Reaso n for Exam Type 2 diabetes mellitus without complication, without long- Performed By: #### C BC, CMP, FE and TIBC, LIPID, URMA, LDLD #### [facility] [address] Automated basophil %Ordered By: Ajit Pettit on 01-18-2024 Basophils/100 WBC (Bld) 1.2 % Normal . [facility] Comment on above: Order Comment: Reaso n for Exam Type 2 diabetes mellitus without complication, without long- Performed By: #### C BC, CMP, FE and TIBC, LIPID, URMA, LDLD #### [facility] [address] Automated basophil countOrde red By: Ajit Pettit on 01-18-2024 Basophils (Bld) [#/Vol] 0.2 10*3/uL Normal 0.0-0.2 [facility] Comment on above: Order Comment: Reaso n for Exam Type 2 diabetes mellitus without complication, without long- Result Comment: PERF ORMED BY: [place] [address] PATHOLOGIST PHOSPHORUS PROCESSING SUPERVISOR RIDGE HUERTA M.D. Performed By: #### C BC, CMP, FE and TIBC, LIPID, URMA, LDLD #### [facility] [address] Automated blood monocyte cou ntOrdered By: Ajit Pettit on 01-18-2024 Monocytes (Bld) [#/Vol] 0.9 10*3/uL High 0.0-0.8 [facility] Comment on above: Order Comment: Reaso n for Exam Type 2 diabetes mellitus without complication, without long- Performed By: #### C BC, CMP, FE and TIBC, LIPID, URMA, LDLD #### [facility] [address] Automated eosinophil %Ordere d By: Ajit Pettit on 01-18-2024 Eosinophils/100 WBC (Bld) 0.9 % Normal . [facility] Comment on above: Order Comment: Reaso n for Exam Type 2 diabetes mellitus without complication, without long- Performed By: #### C BC, CMP, FE and TIBC, LIPID, URMA, LDLD #### [address] Automated eosinophil countOr dered By: Ajit Pettit on 01-18-2024 Eosinophils (Bld) [#/Vol] 0.1 10*3/uL Normal 0.0-0.45 [facility] Comment on above: Order Comment: Reaso n for Exam Type 2 diabetes mellitus without complication, without long- Performed By: #### C BC, CMP, FE and TIBC, LIPID, URMA, LDLD #### [facility] [address] Automated monocyte %Ordered By: Ajit Pettit on 01-18-2024 Monocytes/100 WBC (Bld) 7.1 % Normal . [facility] Comment on above: Order Comment: Reaso n for Exam Type 2 diabetes mellitus without complication, without long- Performed By: #### C BC, CMP, FE and TIBC, LIPID, URMA, LDLD #### [facility] [address] [place] [address] [place] Automated neutrophil %Ordere d By: Ajit Pettit on 01-18-2024 Neutrophils/100 WBC (Bld) 60.9 % Normal . [facility] Comment on above: Order Comment: Reaso n for Exam Type 2 diabetes mellitus without complication, without long- Performed By: #### C BC, CMP, FE and TIBC, LIPID, URMA, LDLD #### [facility] [address] Bilirubin.total [Mass/volume ] in Serum or PlasmaOrdered By: Ajit Pettit on 01-18-2024 Bilirubin [Mass/Vol] 0.4 mg/dL Normal 0.3-1.0 [facility] Comment on above: Order Comment: Reaso n for Exam Type 2 diabetes mellitus without complication, without long- Performed By: #### C BC, CMP, FE and TIBC, LIPID, URMA, LDLD #### [facility] [address] [place] [address] [place] Calcium [Mass/volume] in Ser um or PlasmaOrdered By: Ajit Pettit on 01-18-2024 Calcium [Mass/Vol] 9.5 mg/dL Normal 8.6-10.3 [facility] Comment on above: Order Comment: Reaso n for Exam Type 2 diabetes mellitus without complication, without long- Performed By: #### C BC, CMP, FE and TIBC, LIPID, URMA, LDLD #### [facility] [address] [place] [id number] [place] Carbon dioxide, total [Moles /volume] in Serum or PlasmaOrdered By: Ajit Pettit on 01-18-2024 CO2 [Moles/Vol] 22.0 mmol/L Normal 21.0-31.0 [facility] Comment on above: Order Comment: Reaso n for Exam Type 2 diabetes mellitus without complication, without long- Performed By: #### C BC, CMP, FE and TIBC, LIPID, URMA, LDLD #### [facility] [address] [place] [id number] [place] Chloride [Moles/volume] in S alissa or PlasmaOrdered By: Ajit Pettit on 01-18-2024 Chloride [Moles/Vol] 103 mmol/L Normal 98-107 [facility] Comment on above: Order Comment: Reaso n for Exam Type 2 diabetes mellitus without complication, without long- Performed By: #### C BC, CMP, FE and TIBC, LIPID, URMA, LDLD #### [facility] [address] [place] [id number] [place] Cholesterol [Mass/volume] in Serum or PlasmaOrdered By: Ajit Pettit on 01-18-2024 Cholesterol [Mass/Vol] 188 mg/dL Normal 140-200 [facility] Comment on above: Chol less [...] FE and TIBC, LIPID, URMA, LDLD #### [facility] [address] [place] [address] [place] Cholesterol in LDL Calc [Mas s/Vol]Ordered By: Ajit Pettit on 01-18-2024 Cholesterol in LDL [Mass/Vol] TNP [facility] Comment on above: Test not performed Cholesterol in LDL [Mass/vol ume] in Serum or PlasmaOrdered By: Ajit Pettit on 01-18-2024 Cholesterol in LDL [Mass/Vol] 97 mg/dL 0-100 [facility] Comment on above: LDL ATP III CLASSIFI CATIONLDL less than 100 mg/dL OptimalLDL 100-129 mg/dL Near or above optimalLDL 130-159 mg/dL Borderline highLDL 160-189 mg/dL HighLDL greater than 189 mg/dL Very high Cholesterol in VLDL Calc [Ma ss/Vol]Ordered By: Ajit Pettit on 01-18-2024 Cholesterol in VLDL [Mass/Vol] 88 mg/dL [facility] Complete Blood Count Auto Di ffon 01-18-2024 Mean Corpuscular HGB Conc 33.1 g/dL Normal 32.0-35.0 [facility] Comment on above: Order Comment: Reaso n for Exam Type 2 diabetes mellitus without complication, without long- Performed By: #### C BC, CMP, FE and TIBC, LIPID, URMA, LDLD #### [address] NRBC% 0.2 /100{WBC} Normal 0-0.5 [facility] Comment on above: Order Comment: Reaso n for Exam Type 2 diabetes mellitus without complication, without long- Performed By: #### C BC, CMP, FE and TIBC, LIPID, URMA, LDLD #### [address] Comprehensive Metabolic Pane mark 01-18-2024 Albumin [Mass/Vol] 4.1 g/dL Normal 3.5-5.7 [facility] Comment on above: Order Comment: Reaso n for Exam Type 2 diabetes mellitus without complication, without long- Performed By: #### C BC, CMP, FE and TIBC, LIPID, URMA, LDLD #### [address] GFR/1.73 sq M.predicted MDRD (S/P/Bld) [Vol rate/Area] mL/min/{1.73_m2} Normal [facility] Comment on above: Order Comment: Reaso n for Exam Type 2 diabetes mellitus without complication, without long- Performed By: #### C BC, CMP, FE and TIBC, LIPID, URMA, LDLD #### [address] Creatinine [Mass/volume] in Serum or PlasmaOrdered By: Ajit Pettit on 01-18-2024 Creatinine [Mass/Vol] 0.42 mg/dL Low 0.60-1.20 [facility] Comment on above: Order Comment: Reaso n for Exam Type 2 diabetes mellitus without complication, without long- Performed By: #### C BC, CMP, FE and TIBC, LIPID, URMA, LDLD #### [address] Erythrocyte distribution wid th [Ratio] by Automated countOrdered By: Ajit Pettit on 01-18-2024 Erythrocyte distribution width (RBC) [Ratio] 13.4 % Normal 11.9-15.3 [facility] Comment on above: Order Comment: Reaso n for Exam Type 2 diabetes mellitus without complication, without long- Performed By: #### C BC, CMP, FE and TIBC, LIPID, URMA, LDLD #### [facility] [address] Erythrocytes [#/volume] in B lood by Automated countOrdered By: Ajit Pettit on 01-18-2024 RBC (Bld) [#/Vol] 4.67 10*6/uL Normal 3.60-5.[address] [facility] Comment on above: Order Comment: Reaso n for Exam Type 2 diabetes mellitus without complication, without long- Performed By: #### C BC, CMP, FE and TIBC, LIPID, URMA, LDLD #### [facility] [address] [place] [id number] [place] Glucose [Mass/volume] in Ser um or PlasmaOrdered By: Ajit Pettit on 01-18-2024 Glucose [Mass/Vol] 107 mg/dL High 70-100 [facility] Comment on above: ADA recommended refe rence rangeRandom Glucose Reference Range is dependent on time and content of last meal. Glucose of more than 200 mg/dL in a nonstressed, ambulatory subject supports the diagnosis of Diabetes Mellitus. Order Comment: Reaso n for Exam Type 2 diabetes mellitus without complication, without long- Result Comment: [place] om Glucose Reference Range is dependent on time and content of last meal. Glucose of more than 200 mg/dL in a nonstressed, ambulatory subject supports the diagnosis of Diabetes Mellitus. ADA recommended reference range Performed By: #### C BC, CMP, FE and TIBC, LIPID, URMA, LDLD #### [facility] [address] [place] [id number] [place] Hematocrit [Volume Fraction] of Blood by Automated countOrdered By: Ajit Pettit on 01-18-2024 Hematocrit (Bld) [Volume fraction] 40.8 % Normal 34.0-46.4 [facility] Comment on above: Order Comment: Reaso n for Exam Type 2 diabetes mellitus without complication, without long- Performed By: #### C BC, CMP, FE and TIBC, LIPID, URMA, LDLD #### [facility] [address] [place] [address] [place] Hemoglobin [Mass/volume] in BloodOrdered By: Ajit Yanac on 01-18-2024 Hemoglobin (Bld) [Mass/Vol] 13.5 g/dL Normal 11.8-15.4 [facility] Comment on above: Order Comment: Reaso n for Exam Type 2 diabetes mellitus without complication, without long- Performed By: #### C BC, CMP, FE and TIBC, LIPID, URMA, LDLD #### [facility] [address] [place] [address] [place] Iron [Mass/volume] in Serum or PlasmaOrdered By: Ajit Spasic on 01-18-2024 Iron [Mass/Vol] 89 ug/dL Normal 50-212 [facility] Comment on above: Order Comment: Reaso n for Exam Type 2 diabetes mellitus without complication, without long- Performed By: #### C BC, CMP, FE and TIBC, LIPID, URMA, LDLD #### [facility] [address] [place] [address] [place] Iron and TIBC Profileon 01-02 % Iron Saturation 23.8 % Normal 20-50 [facility] Comment on above: Order Comment: Reaso n for Exam Type 2 diabetes mellitus without complication, without long- Performed By: #### C BC, CMP, FE and TIBC, LIPID, URMA, LDLD #### [facility] [address] [place] [id number] [place] Total Iron Binding Capacity 374 ug/dL Normal 255-450 [facility] Comment on above: Order Comment: Reaso n for Exam Type 2 diabetes mellitus without complication, without long- Performed By: #### C BC, CMP, FE and TIBC, LIPID, URMA, LDLD #### [facility] [address] [place] [id number] [place] Iron binding capacity [Mass/ volume] in Serum or PlasmaOrdered By: Ajit Spasic on 01-18-2024 Iron binding capacity [Mass/Vol] 374 ug/dL 255-450 [facility] Iron saturation [Mass Fracti on] in Serum or PlasmaOrdered By: Ajit Pettit on 01-18-2024 Iron saturation [Mass fraction] 23.8 % 20-50 [facility] LDL Cholesterol Measuredon 0 01-18-2024 LDL Cholesterol Measured 97 mg/dL Normal 0-100 [facility] Comment on above: Order Comment: Reaso n for Exam Type 2 diabetes mellitus without complication, without long- Result Comment: LDL ATP III CLASSIFICATION LDL less than 100 mg/dL Optimal LDL 100-129 mg/dL Near or above optimal LDL 130-159 mg/dL Borderline high LDL 160-189 mg/dL High LDL greater than 189 mg/dL Very high PERFORMED BY: [place] [address] PATHOLOGIST [employer]OS[employer]OR[employer] PROCESSING SUPERVISOR RIDGE HUERTA M.D. Performed By: #### C BC, CMP, FE and TIBC, LIPID, URMA, LDLD #### [facility] [address] [place] [address] Leukocytes [#/volume] correc cherie for nucleated erythrocytes in Blood by Automated counOrdered By: Ajit Pettit on 01-18-2024 WBC corrected for nucl RBC Auto (Bld) [#/Vol] 12.4 10*3/uL 3.8-11.6 [facility] Leukocytes [#/volume] in Blo od by Automated countOrdered By: Ajit Pettit on 01-18-2024 WBC (Bld) [#/Vol] 12.4 10*3/uL High 3.8-11.[address] [facility] Comment on above: Order Comment: Reaso n for Exam Type 2 diabetes mellitus without complication, without long- Performed By: #### C BC, CMP, FE and TIBC, LIPID, URMA, LDLD #### [facility] [address] Lipid Panelon 01-18-2024 LDL Cholesterol,Calculated Not performed Normal 0-100 [facility] Comment on above: Order Comment: Reaso n for Exam Type 2 diabetes mellitus without complication, without long- Performed By: #### C BC, CMP, FE and TIBC, LIPID, URMA, LDLD #### [facility] [address] Triglyceride w/Reflex 441 mg/dL High 0-149 [facility] Comment on above: Order Comment: [...] FE and TIBC, LIPID, URMA, LDLD #### [facility] [address] VLDL CHOLESTEROL 88 mg/dL Normal [facility] Comment on above: Order Comment: Reaso n for Exam Type 2 diabetes mellitus without complication, without long- Performed By: #### C BC, CMP, FE and TIBC, LIPID, URMA, LDLD #### [facility] [address] [place] [address] [place] Lymphocytes [#/volume] in Bl ood by Automated countOrdered By: Ajit Pettit on 01-18-2024 Lymphocytes (Bld) [#/Vol] 3.7 10*3/uL Normal 1.00-4.8 [facility] Comment on above: Order Comment: Reaso n for Exam Type 2 diabetes mellitus without complication, without long- Performed By: #### C BC, CMP, FE and TIBC, LIPID, URMA, LDLD #### [facility] [address] [place] [id number] [place] Lymphocytes/100 leukocytes i n Blood by Automated countOrdered By: Ajit Pettit on 01-18-2024 Lymphocytes/100 WBC (Bld) 29.9 % Normal . [facility] Comment on above: Order Comment: Reaso n for Exam Type 2 diabetes mellitus without complication, without long- Performed By: #### C BC, CMP, FE and TIBC, LIPID, URMA, LDLD #### [facility] [address] [place] [address] [place] MCH [Entitic mass] by Automa cherie countOrdered By: Ajit Pettit on 01-18-2024 MCH (RBC) [Entitic mass] 28.9 pg Normal 24.7-34.3 [facility] Comment on above: Order Comment: Reaso n for Exam Type 2 diabetes mellitus without complication, without long- Performed By: #### C BC, CMP, FE and TIBC, LIPID, URMA, LDLD #### [facility] [address] MCHC Auto (RBC) [Mass/Vol]Or dered By: Ajit Pettit on 01-18-2024 MCHC (RBC) [Mass/Vol] 33.1 g/dL 32.0-35.0 [facility] MCV [Entitic volume] by Auto mated countOrdered By: Ajit Pettit on 01-18-2024 MCV (RBC) [Entitic vol] 87.3 fL Normal 80-100 [facility] Comment on above: Order Comment: Reaso n for Exam Type 2 diabetes mellitus without complication, without long- Performed By: #### C BC, CMP, FE and TIBC, LIPID, URMA, LDLD #### [facility] [address] Microalbumin [Mass/volume] i n UrineOrdered By: Ajit Pettit on 01-18-2024 Albumin DL <= 20 mg/L (U) [Mass/Vol] 0.8 mg/dL Normal 0.0-1.8 [facility] Comment on above: Order Comment: Reaso n for Exam Type 2 diabetes mellitus without complication, without long- Result Comment: PERF ORMED BY: [address] [place] [address] PATHOLOGIST [employer] PROCESSING SUPERVISOR RIDGE HUERTA M.D. Performed By: #### C BC, CMP, FE and TIBC, LIPID, URMA, LDLD #### [place] [address] [place] Neutrophils [#/volume] in Bl ood by Automated countOrdered By: Ajit Pettit on 01-18-2024 Neutrophils (Bld) [#/Vol] 7.6 10*3/uL Normal 1.8-7.7 [facility] Comment on above: Order Comment: Reaso n for Exam Type 2 diabetes mellitus without complication, without long- Performed By: #### C BC, CMP, FE and TIBC, LIPID, URMA, LDLD #### [facility] [address] No Panel InformationOrdered By: Ajit Pettit on 01-18-2024 Estimated GFR (CKD-EPI) > 60.0 mL/Min [facility] Creatinine Clearance (Chem N/A [facility] Nucleated erythrocytes [Pres ence] in Blood by Automated countOrdered By: Ajit Pettit on 01-18-2024 Nucleated RBC Auto Ql (Bld) 0.2 /100{WBC} 0-0.5 [facility] Platelet mean volume [Entiti c volume] in Blood by Automated countOrdered By: Ajit Pettit on 01-18-2024 Platelet mean volume (Bld) [Entitic vol] 8.8 fL Normal 6.3-10.7 [facility] Comment on above: Order Comment: Reaso n for Exam Type 2 diabetes mellitus without complication, without long- Performed By: #### C BC, CMP, FE and TIBC, LIPID, URMA, LDLD #### [facility] [address] [place] [address] [place] Platelets [#/volume] in Bloo d by Automated countOrdered By: Ajit Pettit on 01-18-2024 Platelets (Bld) [#/Vol] 275 10*3/uL Normal 150-450 [facility] Comment on above: Order Comment: Reaso n for Exam Type 2 diabetes mellitus without complication, without long- Performed By: #### C BC, CMP, FE and TIBC, LIPID, URMA, LDLD #### [facility] [address] [place] [address] [place] Potassium [Moles/volume] in Serum or PlasmaOrdered By: Ajit Pettit on 01-18-2024 Potassium [Moles/Vol] 4.3 mmol/L Normal 3.5-5.1 [facility] Comment on above: Order Comment: Reaso n for Exam Type 2 diabetes mellitus without complication, without long- Performed By: #### C BC, CMP, FE and TIBC, LIPID, URMA, LDLD #### [facility] [address] Protein [Mass/volume] in Ser um or PlasmaOrdered By: Ajit Pettit on 01-18-2024 Protein [Mass/Vol] 6.6 g/dL Normal 6.4-8.9 [facility] Comment on above: Order Comment: Reaso n for Exam Type 2 diabetes mellitus without complication, without long- Performed By: #### C BC, CMP, FE and TIBC, LIPID, URMA, LDLD #### [facility] [address] Serum globulin measurement b y calculation (mass/volume)Ordered By: Ajit Pettit on 01-18-2024 Globulin (S) [Mass/Vol] 2.5 g/dL Normal [facility] Comment on above: Order Comment: Reaso n for Exam Type 2 diabetes mellitus without complication, without long- Performed By: #### C BC, CMP, FE and TIBC, LIPID, URMA, LDLD #### [facility] [address] [place] [address] Serum or plasma albumin/glob ulin mass ratioOrdered By: Ajit Pettit on 01-18-2024 Albumin/Globulin [Mass ratio] 1.6 {ratio} Normal [facility] Comment on above: Order Comment: Reaso n for Exam Type 2 diabetes mellitus without complication, without long- Performed By: #### C BC, CMP, FE and TIBC, LIPID, URMA, LDLD #### [facility] [address] [place] [address] [place] Serum or plasma anion gap de terminationOrdered By: Ajit Pettit on 01-18-2024 Anion gap [Moles/Vol] 15.3 mmol/L High 6.0-15.0 [facility] Comment on above: Order Comment: Reaso n for Exam Type 2 diabetes mellitus without complication, without long- Performed By: #### C BC, CMP, FE and TIBC, LIPID, URMA, LDLD #### [facility] [address] Serum or plasma high density lipoprotein (HDL) cholesterol measurementOrdered By: Ajit Pettit on 01-18-2024 Cholesterol in HDL [Mass/Vol] 37 mg/dL Normal 23-92 [facility] Comment on above: HDL CHOL ATP-III CLA [...] FE and TIBC, LIPID, URMA, LDLD #### [facility] [address] [place] [address] Serum or plasma total choles terol/high density lipoprotein (HDL) cholesterol mass ratOrdered By: Ajit Pettit on 01-18-2024 Cholesterol.total/Suellen sterol in HDL [Mass ratio] 5.1 {ratio} Normal <5.0 [facility] Comment on above: Order Comment: Reaso n for Exam Type 2 diabetes mellitus without complication, without long- Performed By: #### C BC, CMP, FE and TIBC, LIPID, URMA, LDLD #### [facility] [address] [place] [address] Result Comment: PERF ORMED BY: [place] [address] PATHOLOGIST PHOSPHORUS PROCESSING SUPERVISOR RIDGE HUERTA M.D. Sodium [Moles/volume] in Ser um or PlasmaOrdered By: Ajit Pettit on 01-18-2024 Sodium [Moles/Vol] 136 mmol/L Normal 136-145 [facility] Comment on above: Order Comment: Reaso n for Exam Type 2 diabetes mellitus without complication, without long- Performed By: #### C BC, CMP, FE and TIBC, LIPID, URMA, LDLD #### [facility] [address] [place] [id number] [place] Transferrin [Mass/volume] in Serum or PlasmaOrdered By: Ajit Pettit on 01-18-2024 Transferrin [Mass/Vol] 267 mg/dL Normal 203-362 [facility] Comment on above: Order Comment: Reaso n for Exam Type 2 diabetes mellitus without complication, without long- Performed By: #### C BC, CMP, FE and TIBC, LIPID, URMA, LDLD #### [facility] [address] [place] [id number] [place] Triglyceride [Mass/volume] i n Serum or PlasmaOrdered By: Ajit Pettit on 01-18-2024 Triglyceride [Mass/Vol] 441 mg/dL 0-149 [facility] Comment on above: If the triglyceride [...] 01-18-2024 Urea nitrogen [Mass/Vol] 10 mg/dL Normal 7-25 [facility] Comment on above: Order Comment: Reaso n for Exam Type 2 diabetes mellitus without complication, without long- Performed By: #### C BC, CMP, FE and TIBC, LIPID, URMA, LDLD #### [facility] [address] [place] [id number] [place] Activated partial thrombopla stin time (aPTT) in platelet poor plasma by coagulation aOrdered By: Diego Noble on 10-16-2023 aPTT Coag (PPP) [Time] 28.2 s 25.1-36.5 [facility] Comment on above: A hematocrit value g reater than 55% may lead to inaccurate results in coagulation testing. Patients having hematocrit values >55% require a special collection tube for coagulation studies. Please contact the laboratory at [phone] for redraw instructions. Alanine aminotransferase [En zymatic activity/volume] in Serum or PlasmaOrdered By: Diego Noble on 10-16-2023 ALT [Catalytic activity/Vol] 10 U/L Normal 7-52 [facility] Comment on above: Performed By: #### C BC, CMP, FE and TIBC, LIPID, URMA, LDLD #### [facility] [address] Albumin [Mass/volume] in Ser um or Plasma by Bromocresol green (BCG) dye binding methoOrdered By: Diego Noble on 10-16-2023 Albumin BCG dye [Mass/Vol] 3.7 g/dL 3.5-5.7 [facility] Alkaline phosphatase [Enzyma tic activity/volume] in Serum or PlasmaOrdered By: Diego Noble on 10-16-2023 ALP [Catalytic activity/Vol] 84 U/L Normal 34-104 [facility] Comment on above: Performed By: #### C BC, CMP, FE and TIBC, LIPID, URMA, LDLD #### [facility] [address] Aspartate aminotransferase [ Enzymatic activity/volume] in Serum or PlasmaOrdered By: Diego Noble on 10-16-2023 AST [Catalytic activity/Vol] 14 U/L Normal 13-39 [facility] Comment on above: Performed By: #### C BC, CMP, FE and TIBC, LIPID, URMA, LDLD #### [address] Automated basophil %Ordered By: Diego Noble on 10-16-2023 Basophils/100 WBC (Bld) 2.6 % Normal . [facility] Comment on above: Performed By: #### C BC, CMP, FE and TIBC, LIPID, URMA, LDLD #### [facility] [address] [place] [address] Automated basophil countOrde red By: Diego Noble on 10-16-2023 Basophils (Bld) [#/Vol] 0.4 10*3/uL High 0.0-0.2 [facility] Comment on above: Result Comment: PERF ORMED BY: [place] [address] PATHOLOGIST PHOS[employer]ORUS PROCESSING SUPERVISOR RIDGE HUERTA M.D. Performed By: #### C BC, CMP, FE and TIBC, LIPID, URMA, LDLD #### [facility] [address] Automated blood monocyte cou ntOrdered By: Diego Noble on 10-16-2023 Monocytes (Bld) [#/Vol] 0.9 10*3/uL High 0.0-0.8 [facility] Comment on above: Performed By: #### C BC, CMP, FE and TIBC, LIPID, URMA, LDLD #### [address] Automated eosinophil %Ordere d By: Diego Noble on 10-16-2023 Eosinophils/100 WBC (Bld) 3.3 % Normal . [facility] Comment on above: Performed By: #### C BC, CMP, FE and TIBC, LIPID, URMA, LDLD #### [address] Automated eosinophil countOr dered By: Diego Noble on 10-16-2023 Eosinophils (Bld) [#/Vol] 0.5 10*3/uL High 0.0-0.45 [facility] Comment on above: Performed By: #### C BC, CMP, FE and TIBC, LIPID, URMA, LDLD #### [address] Automated monocyte %Ordered By: Diego Noble on 10-16-2023 Monocytes/100 WBC (Bld) 6.3 % Normal . [facility] Comment on above: Performed By: #### C BC, CMP, FE and TIBC, LIPID, URMA, LDLD #### [address] Automated neutrophil %Ordere d By: Diego Noble on 10-16-2023 Neutrophils/100 WBC (Bld) 53.8 % Normal . [facility] Comment on above: Performed By: #### C BC, CMP, FE and TIBC, LIPID, URMA, LDLD #### [facility] [address] Bilirubin.total [Mass/volume ] in Serum or PlasmaOrdered By: Diego Noble on 10-16-2023 Bilirubin [Mass/Vol] 0.2 mg/dL Low 0.3-1.0 [facility] Comment on above: Performed By: #### C BC, CMP, FE and TIBC, LIPID, URMA, LDLD #### [address] Blood Cultureon 10-16-2023 Bacteria identified Cx Nom (Bld) NO GROWTH 5 DAYS PERFORMED BY: [place] [address] PATHOLOGIST PHOSPHORUS PROCESSING SUPERVISOR RIDGE HUERTA M.D. Normal [facility] Comment on above: Performed By: #### C USTOOL #### [address] Bacteria identified Cx Nom (Bld) NO GROWTH 5 DAYS PERFORMED BY: [place] [address] PATHOLOGIST PHOSPHORUS PROCESSING SUPERVISOR RIDGE HUERTA M.D. Normal [facility] Comment on above: Performed By: #### C USTOOL #### [address] Calcium [Mass/volume] in Ser um or PlasmaOrdered By: Diego Noble on 10-16-2023 Calcium [Mass/Vol] 9.1 mg/dL Normal 8.6-10.3 [facility] Comment on above: Performed By: #### C BC, CMP, FE and TIBC, LIPID, URMA, LDLD #### [place] [address] [place] Carbon dioxide, total [Moles /volume] in Serum or PlasmaOrdered By: Diego Noble on 10-16-2023 CO2 [Moles/Vol] 25.9 mmol/L Normal 21.0-31.0 [facility] Comment on above: Performed By: #### C BC, CMP, FE and TIBC, LIPID, URMA, LDLD #### [address] Chloride [Moles/volume] in S alissa or PlasmaOrdered By: Diego Noble on 10-16-2023 Chloride [Moles/Vol] 101 mmol/L Normal 98-107 [facility] Comment on above: Performed By: #### C BC, CMP, FE and TIBC, LIPID, URMA, LDLD #### [address] Complete Blood Count Auto Di ffon 10-16-2023 Mean Corpuscular HGB Conc 34.1 g/dL Normal 32.0-35.0 [facility] Comment on above: Performed By: #### C BC, CMP, FE and TIBC, LIPID, URMA, LDLD #### [address] Monocytes/100 WBC (Bld) 20.62 % High 0.00-20.00 [facility] Comment on above: Result Comment: For adults in ED, MDW > 20.0 may be associated with a higher risk of sepsis during the first 12 hrs of hospital admission Performed By: #### C BC, CMP, FE and TIBC, LIPID, URMA, LDLD #### [address] NRBC% 0.1 /100{WBC} Normal 0-0.5 [facility] Comment on above: Performed By: #### C BC, CMP, FE and TIBC, LIPID, URMA, LDLD #### [address] Comprehensive Metabolic Pane mark 10-16-2023 Albumin [Mass/Vol] 3.7 g/dL Normal 3.5-5.7 [facility] Comment on above: Performed By: #### C BC, CMP, FE and TIBC, LIPID, URMA, LDLD #### [address] Creatinine Clr Calc Pharmacy 134.19 Normal [facility] Comment on above: Result Comment: PERF ORMED BY: [address] [place] [address] PATHOLOGIST PHOSPHORUS PROCESSING SUPERVISOR RIDGE HUERTA M.D. Performed By: #### C BC, CMP, FE and TIBC, LIPID, URMA, LDLD #### [address] GFR/1.73 sq M.predicted MDRD (S/P/Bld) [Vol rate/Area] mL/min/{1.73_m2} Normal [facility] Comment on above: Performed By: #### C BC, CMP, FE and TIBC, LIPID, URMA, LDLD #### [address] Creatinine [Mass/volume] in Serum or PlasmaOrdered By: Diego Noble on 10-16-2023 Creatinine [Mass/Vol] 0.55 mg/dL Low 0.60-1.20 [facility] Comment on above: Performed By: #### C BC, CMP, FE and TIBC, LIPID, URMA, LDLD #### [address] Erythrocyte distribution wid th [Ratio] by Automated countOrdered By: Diego Noble on 10-16-2023 Erythrocyte distribution width (RBC) [Ratio] 13.0 % Normal 11.9-15.3 [facility] Comment on above: Performed By: #### C BC, CMP, FE and TIBC, LIPID, URMA, LDLD #### [address] Erythrocytes [#/volume] in B lood by Automated countOrdered By: Diego Noble on 10-16-2023 RBC (Bld) [#/Vol] 3.84 10*6/uL Normal 3.60-5.[address] [facility] Comment on above: Performed By: #### C BC, CMP, FE and TIBC, LIPID, URMA, LDLD #### [place] [address] [place] Glucose [Mass/volume] in Ser um or PlasmaOrdered By: Diego Noble on 10-16-2023 Glucose [Mass/Vol] 197 mg/dL High 70-100 [facility] Comment on above: ADA recommended refe rence rangeRandom Glucose Reference Range is dependent on time and content of last meal. Glucose of more than 200 mg/dL in a nonstressed, ambulatory subject supports the diagnosis of Diabetes Mellitus. Result Comment: [place] om Glucose Reference Range is dependent on time and content of last meal. Glucose of more than 200 mg/dL in a nonstressed, ambulatory subject supports the diagnosis of Diabetes Mellitus. ADA recommended reference range Performed By: #### C BC, CMP, FE and TIBC, LIPID, URMA, LDLD #### [facility] [address] Hematocrit [Volume Fraction] of Blood by Automated countOrdered By: Diego Noble on 10-16-2023 Hematocrit (Bld) [Volume fraction] 34.0 % Normal 34.0-46.4 [facility] Comment on above: Performed By: #### C BC, CMP, FE and TIBC, LIPID, URMA, LDLD #### [facility] [address] Hemoglobin [Mass/volume] in BloodOrdered By: Diego Noble on 10-16-2023 Hemoglobin (Bld) [Mass/Vol] 11.6 g/dL Low 11.8-15.4 [facility] Comment on above: Performed By: #### C BC, CMP, FE and TIBC, LIPID, URMA, LDLD #### [address] INR in Platelet poor plasma by Coagulation assayOrdered By: Diego Noble on 10-16-2023 INR Coag (PPP) [Relative time] 0.9 {INR} Normal [facility] Comment on above: INR Therapeutic Rang e [...] FE and TIBC, LIPID, URMA, LDLD #### [place] [address] [place] Lactate [Moles/volume] in Se rum or PlasmaOrdered By: Diego Noble on 10-16-2023 Lactate [Moles/Vol] 2.1 mmol/L Off scale high 0.5-2.2 [facility] Comment on above: Critical Result : Ca lled to and read back by: MACO BECK at: 10/16/2023 12:33:20 by:ECTOR Result Comment: Crit ical Result : Called to and read back by: MACO BECK at: 10/16/2023 12:33:20 by:ECTOR PERFORMED BY: [place] [address] PATHOLOGIST PHOSPHORUS PROCESSING SUPERVISOR RIDGE HUERTA M.D. Performed By: #### C USTOOL #### [address] Leukocytes [#/volume] correc cherie for nucleated erythrocytes in Blood by Automated counOrdered By: Diego Noble on 10-16-2023 WBC corrected for nucl RBC Auto (Bld) [#/Vol] 14.3 10*3/uL 3.8-11.6 [facility] Leukocytes [#/volume] in Blo od by Automated countOrdered By: Diego Noble on 10-16-2023 WBC (Bld) [#/Vol] 14.3 10*3/uL High 3.8-11.[address] [facility] Comment on above: Performed By: #### C BC, CMP, FE and TIBC, LIPID, URMA, LDLD #### [place] [address] [place] Lymphocytes [#/volume] in Bl ood by Automated countOrdered By: Diego Noble on 10-16-2023 Lymphocytes (Bld) [#/Vol] 4.9 10*3/uL High 1.00-4.8 [facility] Comment on above: Performed By: #### C BC, CMP, FE and TIBC, LIPID, URMA, LDLD #### [facility] [address] Lymphocytes/100 leukocytes i n Blood by Automated countOrdered By: Diego Noble on 10-16-2023 Lymphocytes/100 WBC (Bld) 34.0 % Normal . [facility] Comment on above: Performed By: #### C BC, CMP, FE and TIBC, LIPID, URMA, LDLD #### [facility] [address] MCH [Entitic mass] by Automa cherie countOrdered By: Diego Noble on 10-16-2023 MCH (RBC) [Entitic mass] 30.3 pg Normal 24.7-34.3 [facility] Comment on above: Performed By: #### C BC, CMP, FE and TIBC, LIPID, URMA, LDLD #### [facility] [address] MCHC Auto (RBC) [Mass/Vol]Or dered By: Diego Noble on 10-16-2023 MCHC (RBC) [Mass/Vol] 34.1 g/dL 32.0-35.0 [facility] MCV [Entitic volume] by Auto mated countOrdered By: Diego Noble on 10-16-2023 MCV (RBC) [Entitic vol] 88.7 fL Normal 80-100 F [facility] Comment on above: Performed By: #### C BC, CMP, FE and TIBC, LIPID, URMA, LDLD #### [facility] [address] Monocyte distribution width [Entitic volume] in Blood by AutomatedOrdered By: Diego Noble on 10-16-2023 Monocyte distribution width Auto (Bld) [Entitic vol] 20.62 % 0.00-20.00 [facility] Comment on above: For adults in ED, MD W > 20.0 may be associated with a higher risk of sepsis during the first 12 hrs of hospital admission Neutrophils [#/volume] in Bl ood by Automated countOrdered By: Diego Noble on 10-16-2023 Neutrophils (Bld) [#/Vol] 7.7 10*3/uL Normal 1.8-7.7 [facility] Comment on above: Performed By: #### C BC, CMP, FE and TIBC, LIPID, URMA, LDLD #### [facility] [address] No Panel InformationOrdered By: Diego Noble on 10-16-2023 Estimated GFR (CKD-EPI) > 60.0 mL/Min [facility] Creatinine Clearance (Chem 134.19 [facility] Nucleated erythrocytes [Pres ence] in Blood by Automated countOrdered By: Diego Noble on 10-16-2023 Nucleated RBC Auto Ql (Bld) 0.1 /100{WBC} 0-0.5 [facility] Partial Thromboplastin Timeo n 10-16-2023 aPTT Coag (Bld) [Time] 28.2 s Normal 25.1-36.5 [facility] Comment on above: Result Comment: A he matocrit value greater than 55% may lead to inaccurate results in coagulation testing. Patients having hematocrit values >55% require a special collection tube for coagulation studies. Please contact the laboratory at [phone] for redraw instructions. PERFORMED BY: [place] [address] PATHOLOGIST PHOSPHOR[employer] PROCESSING SUPERVISOR RIDGE HUERTA M.D. Performed By: #### C BC, CMP, FE and TIBC, LIPID, URMA, LDLD #### [facility] [address] Platelet mean volume [Entiti c volume] in Blood by Automated countOrdered By: Diego Noble on 10-16-2023 Platelet mean volume (Bld) [Entitic vol] 6.7 fL Normal 6.3-10.7 [facility] Comment on above: Performed By: #### C BC, CMP, FE and TIBC, LIPID, URMA, LDLD #### [facility] [address] [place] [address] [place] Platelets [#/volume] in Bloo d by Automated countOrdered By: Diego Noble on 10-16-2023 Platelets (Bld) [#/Vol] 454 10*3/uL High 150-450 [facility] Comment on above: Performed By: #### C BC, CMP, FE and TIBC, LIPID, URMA, LDLD #### [facility] [address] Potassium [Moles/volume] in Serum or PlasmaOrdered By: Diego Noble on 10-16-2023 Potassium [Moles/Vol] 4.3 mmol/L Normal 3.5-5.1 [facility] Comment on above: Performed By: #### C BC, CMP, FE and TIBC, LIPID, URMA, LDLD #### [facility] [address] [place] [address] [place] Protein [Mass/volume] in Ser um or PlasmaOrdered By: Diego Noble on 10-16-2023 Protein [Mass/Vol] 6.3 g/dL Low 6.4-8.9 [facility] Comment on above: Performed By: #### C BC, CMP, FE and TIBC, LIPID, URMA, LDLD #### [facility] [address] Prothrombin time (PT)Ordered By: Diego Noble on 10-16-2023 PT Coag (PPP) [Time] 9.9 s Normal 9.0-12.9 [facility] Comment on above: A hematocrit value g reater than 55% may lead to inaccurate results in coagulation testing. Patients having hematocrit values >55% require a special collection tube for coagulation studies. Please contact the laboratory at [phone] for redraw instructions. Result Comment: A he matocrit value greater than 55% may lead to inaccurate results in coagulation testing. Patients having hematocrit values >55% require a special collection tube for coagulation studies. Please contact the laboratory at [phone] for redraw instructions. Performed By: #### C BC, CMP, FE and TIBC, LIPID, URMA, LDLD #### [facility] [address] Serum globulin measurement b y calculation (mass/volume)Ordered By: Diego Noble on 10-16-2023 Globulin (S) [Mass/Vol] 2.6 g/dL Normal [facility] Comment on above: Performed By: #### C BC, CMP, FE and TIBC, LIPID, URMA, LDLD #### [facility] [address] Serum or plasma albumin/glob ulin mass ratioOrdered By: Diego Noble on 10-16-2023 Albumin/Globulin [Mass ratio] 1.4 {ratio} Normal [facility] Comment on above: Performed By: #### C BC, CMP, FE and TIBC, LIPID, URMA, LDLD #### [address] Serum or plasma anion gap de terminationOrdered By: Diego Noble on 10-16-2023 Anion gap [Moles/Vol] 14.4 mmol/L Normal 6.0-15.0 [facility] Comment on above: Performed By: #### C BC, CMP, FE and TIBC, LIPID, URMA, LDLD #### [address] Sodium [Moles/volume] in Ser um or PlasmaOrdered By: Diego Noble on 10-16-2023 Sodium [Moles/Vol] 137 mmol/L Normal 136-145 [facility] Comment on above: Performed By: #### C BC, CMP, FE and TIBC, LIPID, URMA, LDLD #### [address] Urea nitrogen [Mass/volume] in Serum or PlasmaOrdered By: Diego Noble on 10-16-2023 Urea nitrogen [Mass/Vol] 12 mg/dL Normal 7-25 [facility] Comment on above: Performed By: #### C BC, CMP, FE and TIBC, LIPID, URMA, LDLD #### [facility] [address] [place] [address] Automated basophil %Ordered By: Ilene Lopez on 10-09-2023 Basophils/100 WBC (Bld) 0.4 % Normal . [facility] Comment on above: Performed By: #### C BC, CMP, FE and TIBC, LIPID, URMA, LDLD #### [address] Automated basophil countOrde red By: Ilene Lopez on 10-09-2023 Basophils (Bld) [#/Vol] 0.1 10*3/uL Normal 0.0-0.2 [facility] Comment on above: Result Comment: PERF ORMED BY: [place] [address] PATHOLOGIST PHOS[employer]ORUS PROCESSING SUPERVISOR RIDGE HUERTA M.D. Performed By: #### C BC, CMP, FE and TIBC, LIPID, URMA, LDLD #### [address] Automated blood monocyte cou ntOrdered By: Ilene Lopez on 10-09-2023 Monocytes (Bld) [#/Vol] 1.3 10*3/uL High 0.0-0.8 [facility] Comment on above: Performed By: #### C BC, CMP, FE and TIBC, LIPID, URMA, LDLD #### [address] Automated eosinophil %Ordere d By: Ilene Lopez on 10-09-2023 Eosinophils/100 WBC (Bld) 3.5 % Normal . [facility] Comment on above: Performed By: #### C BC, CMP, FE and TIBC, LIPID, URMA, LDLD #### [address] Automated eosinophil countOr dered By: Ilene Lopez on 10-09-2023 Eosinophils (Bld) [#/Vol] 0.5 10*3/uL High 0.0-0.45 [facility] Comment on above: Performed By: #### C BC, CMP, FE and TIBC, LIPID, URMA, LDLD #### [facility] [address] Automated monocyte %Ordered By: Ilene Lopez on 10-09-2023 Monocytes/100 WBC (Bld) 9.5 % Normal . [facility] Comment on above: Performed By: #### C BC, CMP, FE and TIBC, LIPID, URMA, LDLD #### [facility] [address] Automated neutrophil %Ordere d By: Ilene Lopez on 10-09-2023 Neutrophils/100 WBC (Bld) 70.1 % Normal . [facility] Comment on above: Performed By: #### C BC, CMP, FE and TIBC, LIPID, URMA, LDLD #### [address] Basic Metabolic Panelon Creatinine Clr Calc Pharmacy 153.15 Normal [facility] Comment on above: Result Comment: PERF ORMED BY: [place] [address] PATHOLOGIST PHOS[employer]ORUS PROCESSING SUPERVISOR RIDGE HUERTA M.D. Performed By: #### C BC, CMP, FE and TIBC, LIPID, URMA, LDLD #### [address] GFR/1.73 sq M.predicted MDRD (S/P/Bld) [Vol rate/Area] mL/min/{1.73_m2} Normal [facility] Comment on above: Performed By: #### C BC, CMP, FE and TIBC, LIPID, URMA, LDLD #### [address] Calcium [Mass/volume] in Ser um or PlasmaOrdered By: Ilene Lopez on 10-09-2023 Calcium [Mass/Vol] 7.9 mg/dL Low 8.6-10.3 [facility] Comment on above: Performed By: #### C BC, CMP, FE and TIBC, LIPID, URMA, LDLD #### [facility] [address] [place] [address] [place] Capillary blood glucose ashwini urement by glucometer (mass/volume)Ordered By: Salazar Cabrera on 10-09-2023 Glucose [Mass/Vol] 299 mg/dL Normal [facility] Comment on above: Random Glucose Refer ence Range is dependent on time and content of last meal. Glucose of more than 200 mg/dL in a nonstressed, ambulatory subject supports the diagnosis of Diabetes Mellitus. Result Comment: [place] om Glucose Reference Range is dependent on time and content of last meal. Glucose of more than 200 mg/dL in a nonstressed, ambulatory subject supports the diagnosis of Diabetes Mellitus. Performed By: #### G EDUARDO #### Point of Care testing , Carbon dioxide, total [Moles /volume] in Serum or PlasmaOrdered By: Ilene Lopez on 10-09-2023 CO2 [Moles/Vol] 22.6 mmol/L Normal 21.0-31.0 [facility] Comment on above: Performed By: #### C BC, CMP, FE and TIBC, LIPID, URMA, LDLD #### [facility] [address] [place] [address] [place] Chloride [Moles/volume] in S alissa or PlasmaOrdered By: Ilene Lopez on 10-09-2023 Chloride [Moles/Vol] 105 mmol/L Normal 98-107 [facility] Comment on above: Performed By: #### C BC, CMP, FE and TIBC, LIPID, URMA, LDLD #### [facility] [address] [place] [address] [place] Clostridioides difficile tox in B tcdB gene [Presence] in Stool by NAYELY with probe deteOrdered By: BONG Pavon on 10-09-2023 C. difficile toxin B tcdB gene NAYELY+probe Ql (Stl) Positive Negative [facility] Comment on above: Results calledat 161 9 on 10/09/23 Testing performed by RT-PCR Clostridium Difficileon Clostridium Difficile Positive Normal Negative [facility] Comment on above: Order Comment: Reaso n for Exam Type 2 diabetes mellitus without complication, without long- Result Comment: Resu lts called at 1619 on 10/09/23 Testing performed by RT-PCR PERFORMED BY: [place] [address] PATHOLOGIST PHOS[employer]ORUS PROCESSING SUPERVISOR RIDGE HUERTA M.D. Performed By: #### C BC, CMP, FE and TIBC, LIPID, URMA, LDLD #### [address] Complete Blood Count Auto Di ffon 10-09-2023 Mean Corpuscular HGB Conc 34.0 g/dL Normal 32.0-35.0 [facility] Comment on above: Performed By: #### C BC, CMP, FE and TIBC, LIPID, URMA, LDLD #### [address] NRBC% 0.1 /100{WBC} Normal 0-0.5 [facility] Comment on above: Performed By: #### C BC, CMP, FE and TIBC, LIPID, URMA, LDLD #### [address] Creatinine [Mass/volume] in Serum or PlasmaOrdered By: Ilene Lopez on 10-09-2023 Creatinine [Mass/Vol] 0.48 mg/dL Low 0.60-1.20 [facility] Comment on above: Performed By: #### C BC, CMP, FE and TIBC, LIPID, URMA, LDLD #### [address] Erythrocyte distribution wid th [Ratio] by Automated countOrdered By: Ilene Lopez on 10-09-2023 Erythrocyte distribution width (RBC) [Ratio] 13.2 % Normal 11.9-15.3 [facility] Comment on above: Performed By: #### C BC, CMP, FE and TIBC, LIPID, URMA, LDLD #### [address] Erythrocytes [#/volume] in B lood by Automated countOrdered By: Ilene Calderon on 10-09-2023 RBC (Bld) [#/Vol] 3.44 10*6/uL Low 3.60-5.[address] [facility] Comment on above: Performed By: #### C BC, CMP, FE and TIBC, LIPID, URMA, LDLD #### [facility] [address] [place] [id number] [place] Glucose Poct Glucometerson 0 10-09-2023 Commemt1 Glu2: Cleaned Meter Normal [facility] Comment on above: Result Comment: PERF ORMED BY: [place] [address] PATHOLOGIST PHOSPHORUS PROCESSING SUPERVISOR RIDGE HUERTA M.D. Performed By: #### G LULS #### Point of Care testing , Commemt1 Glu2: Cleaned Meter Normal [facility] Comment on above: Result Comment: PERF ORMED BY: [place] [address] PATHOLOGIST PHOSPHORUS PROCESSING SUPERVISOR RIDGE HUERTA M.D. Performed By: #### C BC, CMP, FE and TIBC, LIPID, URMA, LDLD #### [facility] [address] [place] [id number] [place] Glucose [Mass/Vol] 188 mg/dL Normal [facility] Comment on above: Result Comment: [place] om Glucose Reference Range is dependent on time and content of last meal. Glucose of more than 200 mg/dL in a nonstressed, ambulatory subject supports the diagnosis of Diabetes Mellitus. Performed By: #### C BC, CMP, FE and TIBC, LIPID, URMA, LDLD #### [facility] [address] [place] [id number] [place] Glucose [Mass/volume] in Ser um or PlasmaOrdered By: Ilene Lopez on 10-09-2023 Glucose [Mass/Vol] 143 mg/dL High 70-100 [facility] Comment on above: ADA recommended refe rence rangeRandom Glucose Reference Range is dependent on time and content of last meal. Glucose of more than 200 mg/dL in a nonstressed, ambulatory subject supports the diagnosis of Diabetes Mellitus. Result Comment: [place] Glucose Reference Range is dependent on time and content of last meal. Glucose of more than 200 mg/dL in a nonstressed, ambulatory subject supports the diagnosis of Diabetes Mellitus. ADA recommended reference range Performed By: #### C BC, CMP, FE and TIBC, LIPID, URMA, LDLD #### [facility] [address] Hematocrit [Volume Fraction] of Blood by Automated countOrdered By: Ilene Lopez on 10-09-2023 Hematocrit (Bld) [Volume fraction] 30.3 % Low 34.0-46.4 [facility] Comment on above: Performed By: #### C BC, CMP, FE and TIBC, LIPID, URMA, LDLD #### [facility] [address] Hemoglobin [Mass/volume] in BloodOrdered By: Ilene Lopez on 10-09-2023 Hemoglobin (Bld) [Mass/Vol] 10.3 g/dL Low 11.8-15.4 [facility] Comment on above: Performed By: #### C BC, CMP, FE and TIBC, LIPID, URMA, LDLD #### [facility] [address] [place] [address] [place] Leukocytes [#/volume] correc cherie for nucleated erythrocytes in Blood by Automated counOrdered By: Ilene Lopez on 10-09-2023 WBC corrected for nucl RBC Auto (Bld) [#/Vol] 13.6 10*3/uL 3.8-11.6 [facility] Leukocytes [#/volume] in Blo od by Automated countOrdered By: Ilene Calderon on 10-09-2023 WBC (Bld) [#/Vol] 13.6 10*3/uL High 3.8-11.[address] [facility] Comment on above: Performed By: #### C BC, CMP, FE and TIBC, LIPID, URMA, LDLD #### [facility] [address] [place] [address] [place] Lymphocytes [#/volume] in Bl ood by Automated countOrdered By: Ilene Calderon on 10-09-2023 Lymphocytes (Bld) [#/Vol] 2.2 10*3/uL Normal 1.00-4.8 [facility] Comment on above: Performed By: #### C BC, CMP, FE and TIBC, LIPID, URMA, LDLD #### [facility] [address] Lymphocytes/100 leukocytes i n Blood by Automated countOrdered By: Ilene Lopez on 10-09-2023 Lymphocytes/100 WBC (Bld) 16.5 % Normal . [facility] Comment on above: Performed By: #### C BC, CMP, FE and TIBC, LIPID, URMA, LDLD #### [address] MCH [Entitic mass] by Automa cherie countOrdered By: Ilene Lopez on 10-09-2023 MCH (RBC) [Entitic mass] 29.9 pg Normal 24.7-34.3 [facility] Comment on above: Performed By: #### C BC, CMP, FE and TIBC, LIPID, URMA, LDLD #### [address] MCHC Auto (RBC) [Mass/Vol]Or dered By: Ilene Lopez on 10-09-2023 MCHC (RBC) [Mass/Vol] 34.0 g/dL 32.0-35.0 [facility] MCV [Entitic volume] by Auto mated countOrdered By: Ilene Lopez on 10-09-2023 MCV (RBC) [Entitic vol] 88.1 fL Normal 80-100 [facility] Comment on above: Performed By: #### C BC, CMP, FE and TIBC, LIPID, URMA, LDLD #### [address] Neutrophils [#/volume] in Bl ood by Automated countOrdered By: Ilene Calderon on 10-09-2023 Neutrophils (Bld) [#/Vol] 9.6 10*3/uL High 1.8-7.7 [facility] Comment on above: Performed By: #### C BC, CMP, FE and TIBC, LIPID, URMA, LDLD #### [facility] [address] No Panel InformationOrdered By: Salazar Cabrera on 10-09-2023 Bedside Glucose Comment Glu2: cleaned meter [facility] No Panel InformationOrdered By: Ilene Lopez on 10-09-2023 Estimated GFR (CKD-EPI) > 60.0 mL/Min [facility] Creatinine Clearance (Chem 153.15 [facility] Nucleated erythrocytes [Pres ence] in Blood by Automated countOrdered By: Ilene Lopez on 10-09-2023 Nucleated RBC Auto Ql (Bld) 0.1 /100{WBC} 0-0.5 [facility] Platelet mean volume [Entiti c volume] in Blood by Automated countOrdered By: Ilene Lopez on 10-09-2023 Platelet mean volume (Bld) [Entitic vol] 7.9 fL Normal 6.3-10.7 [facility] Comment on above: Performed By: #### C BC, CMP, FE and TIBC, LIPID, URMA, LDLD #### [facility] [address] Platelets [#/volume] in Bloo d by Automated countOrdered By: Ilene Lopez on 10-09-2023 Platelets (Bld) [#/Vol] 242 10*3/uL Normal 150-450 [facility] Comment on above: Performed By: #### C BC, CMP, FE and TIBC, LIPID, URMA, LDLD #### [facility] [address] [place] [address] [place] Potassium [Moles/volume] in Serum or PlasmaOrdered By: Ilene Lopez on 10-09-2023 Potassium [Moles/Vol] 3.4 mmol/L Low 3.5-5.1 [facility] Comment on above: Performed By: #### C BC, CMP, FE and TIBC, LIPID, URMA, LDLD #### [address] Serum or plasma anion gap de terminationOrdered By: Ilene Lopez on 10-09-2023 Anion gap [Moles/Vol] 11.8 mmol/L Normal 6.0-15.0 [facility] Comment on above: Performed By: #### C BC, CMP, FE and TIBC, LIPID, URMA, LDLD #### [address] Sodium [Moles/volume] in Ser um or PlasmaOrdered By: Ilene Lopez on 10-09-2023 Sodium [Moles/Vol] 136 mmol/L Normal 136-145 [facility] Comment on above: Performed By: #### C BC, CMP, FE and TIBC, LIPID, URMA, LDLD #### [address] Stool Cultureon 10-09-2023 Stool culture Comment c. diff Negative for Shiga Toxin 1 Negative for Shiga Toxin 2 A negative Shiga Toxin result may occur if the antigen level in the specimen is below the detection limit of the assay. Stool culture results No Salmonella, Shigella, Campy or E. coli 0157:H7 Isolated PERFORMED BY: [place] [address] PATHOLOGIST PHOSPHORUS PROCESSING SUPERVISOR RIDGE HUERTA M.D. Normal [facility] Comment on above: Performed By: #### C USTOOL #### [address] Stool bacteria identificatio n by cultureOrdered By: BONG Pavon on 10-09-2023 Bacteria identified Cx Nom (Stl) [facility] Urea nitrogen [Mass/volume] in Serum or PlasmaOrdered By: Ilene Lopez on 10-09-2023 Urea nitrogen [Mass/Vol] 6 mg/dL Low 7-25 [facility] Comment on above: Performed By: #### C BC, CMP, FE and TIBC, LIPID, URMA, LDLD #### [facility] [address] Alanine aminotransferase [En zymatic activity/volume] in Serum or PlasmaOrdered By: BONG Pavon on 10-08-2023 ALT [Catalytic activity/Vol] 31 U/L Normal 7-52 [facility] Comment on above: Performed By: #### G LULS #### Point of Care testing , Albumin [Mass/volume] in Ser um or Plasma by Bromocresol green (BCG) dye binding methoOrdered By: BONG Pavon on 10-08-2023 Albumin BCG dye [Mass/Vol] 3.7 g/dL 3.5-5.7 [facility] Alkaline phosphatase [Enzyma tic activity/volume] in Serum or PlasmaOrdered By: BONG Pavon on 10-08-2023 ALP [Catalytic activity/Vol] 61 U/L Normal 34-104 [facility] Comment on above: Performed By: #### G LULS #### Point of Care testing , Aspartate aminotransferase [ Enzymatic activity/volume] in Serum or PlasmaOrdered By: BONG Pavon on 10-08-2023 AST [Catalytic activity/Vol] 40 U/L High 13-39 [facility] Comment on above: Performed By: #### G LULS #### Point of Care testing , Automated erythrocytes count in urine sediment (number/area)Ordered By: BONG Pavon on 10-08-2023 RBC Auto (Urine sed) [#/Area] 5-9 [HPF] 0-4 [facility] Automated leukocytes count i n urine sediment (number/area)Ordered By: BONG Pavon on 10-08-2023 WBC Auto (Urine sed) [#/Area] 3-4 [HPF] 0-4 [facility] Automated urine color determ inationOrdered By: BONG Pavon on 10-08-2023 Color (U) [place] Critically abnormal Yellow [facility] Comment on above: Order Comment: Name Collection Type:: [place] Catheter Performed By: #### C USTOOL #### [address] Automated urine hyaline cast s count (number/volume)Ordered By: BONG Pavon on 10-08-2023 Hyaline casts Auto (U) [#/Vol] None seen [LPF] 0-1 [facility] Bilirubin Test strip Ql (U)O rdered By: BONG Pavon on 10-08-2023 Bilirubin Ql (U) 1+ Negative [facility] Bilirubin.total [Mass/volume ] in Serum or PlasmaOrdered By: BONG Pavon on 10-08-2023 Bilirubin [Mass/Vol] 0.6 mg/dL Normal 0.3-1.0 [facility] Comment on above: Performed By: #### G LULS #### Point of Care testing , CT abdomen pelvis w conon CT abdomen pelvis w con [facility] [place] [address] [place] [address] CT Scan Report Signed Patient: Rachel Mcgarry MR#: [id number] 1 : 1980 Acct:[id number] Age/Sex: 43 / F ADM Date: 10/07/23 Loc: Room: [address] [place] [address] Type: ADM IN Attending Dr: Beltran Pavon MD Copies to: BONG Motley Ordering Provider: BONG Motley Date of Service: 10/08/23 CT/CT abdomen pelvis w con: Abdominal pain/distended abdomen CT abdomen and pelvis with contrast CLINICAL DATA: Abdominal pain, distention and vomiting. Recent hysterectomy. COMPARISON: 10/07/2023 from [facility]. No report is available at this time. [...] Eda Yañez M.D.10/08/2023 12:09 PM Dictation Location: [place] [address] Transcribed By: [facility] 10/08/23 1209 Dictated By: Eda Yañez MD 10/08/23 1142 Signed By: 10/08/23 1209 Normal [facility] Casts typing in urine sedime nt by light microscopyOrdered By: BONG Pavon on 10-08-2023 Casts LM Nom (Urine sed) None seen [LPF] None Seen [facility] Complete Blood Count Auto Di ffon 10-08-2023 Basophils (Bld) [#/Vol] 0.1 10*3/uL Normal 0.0-0.2 [facility] Comment on above: Result Comment: PERF ORMED BY: [facility] [address] [place] [address] PATHOLOGIST PHOSPHORUS PROCESSING SUPERVISOR RIDGE HUERTA M.D. Performed By: #### G LULS #### Point of Care testing , Basophils/100 WBC (Bld) 0.5 % Normal . T [facility] Comment on above: Performed By: #### G LULS #### Point of Care testing , Eosinophils (Bld) [#/Vol] 0.2 10*3/uL Normal 0.0-0.45 [facility] Comment on above: Performed By: #### G LULS #### Point of Care testing , Eosinophils/100 WBC (Bld) 1.3 % Normal . [facility] Comment on above: Performed By: #### G LULS #### Point of Care testing , Erythrocyte distribution width (RBC) [Ratio] 13.2 % Normal 11.9-15.3 [facility] Comment on above: Performed By: #### G LULS #### Point of Care testing , Hematocrit (Bld) [Volume fraction] 35.9 % Normal 34.0-46.4 [facility] Comment on above: Performed By: #### G LULS #### Point of Care testing , Hemoglobin (Bld) [Mass/Vol] 12.1 g/dL Normal 11.8-15.4 [facility] Comment on above: Performed By: #### G LULS #### Point of Care testing , Lymphocytes (Bld) [#/Vol] 3.0 10*3/uL Normal 1.00-4.8 [facility] Comment on above: Performed By: #### G LULS #### Point of Care testing , Lymphocytes/100 WBC (Bld) 16.8 % Normal . [facility] Comment on above: Performed By: #### G LULS #### Point of Care testing , MCH (RBC) [Entitic mass] 29.7 pg Normal 24.7-34.3 [facility] Comment on above: Performed By: #### G LULS #### Point of Care testing , MCV (RBC) [Entitic vol] 88.3 fL Normal 80-100 T [facility] Comment on above: Performed By: #### G LULS #### Point of Care testing , Mean Corpuscular HGB Conc 33.6 g/dL Normal 32.0-35.0 [facility] Comment on above: Performed By: #### G LULS #### Point of Care testing , Monocytes (Bld) [#/Vol] 1.5 10*3/uL High 0.0-0.8 [facility] Comment on above: Performed By: #### G LULS #### Point of Care testing , Monocytes/100 WBC (Bld) 8.4 % Normal . T [facility] Comment on above: Performed By: #### G LULS #### Point of Care testing , Neutrophils (Bld) [#/Vol] 12.9 10*3/uL High 1.8-7.7 [facility] Comment on above: Performed By: #### G LULS #### Point of Care testing , Neutrophils/100 WBC (Bld) 73.0 % Normal . [facility] Comment on above: Performed By: #### G LULS #### Point of Care testing , NRBC% 0.1 /100{WBC} Normal 0-0.5 [facility] Comment on above: Performed By: #### G LULS #### Point of Care testing , Platelet mean volume (Bld) [Entitic vol] 7.9 fL Normal 6.3-10.7 [facility] Comment on above: Performed By: #### G LULS #### Point of Care testing , Platelets (Bld) [#/Vol] 274 10*3/uL Normal 150-450 [facility] Comment on above: Performed By: #### G LULS #### Point of Care testing , RBC (Bld) [#/Vol] 4.06 10*6/uL Normal 3.60-5.00 [facility] Comment on above: Performed By: #### G LULS #### Point of Care testing , WBC (Bld) [#/Vol] 17.6 10*3/uL High 3.8-11.6 [facility] Comment on above: Performed By: #### G LULS #### Point of Care testing , Comprehensive Metabolic Pane mark 10-08-2023 Albumin [Mass/Vol] 3.7 g/dL Normal 3.5-5.7 [facility] Comment on above: Performed By: #### G LULS #### Point of Care testing , Anion gap [Moles/Vol] 14.8 mmol/L Normal 6.0-15.0 Th e [facility] Comment on above: Performed By: #### G LULS #### Point of Care testing , Calcium [Mass/Vol] 7.8 mg/dL Low 8.6-10.3 [facility] Comment on above: Performed By: #### G LULS #### Point of Care testing , Chloride [Moles/Vol] 104 mmol/L Normal 98-107 [facility] Comment on above: Performed By: #### G LULS #### Point of Care testing , CO2 [Moles/Vol] 20.2 mmol/L Low 21.0-31.0 [facility] Comment on above: Performed By: #### G LULS #### Point of Care testing , Creatinine [Mass/Vol] 0.58 mg/dL Low 0.60-1.20 [facility] Comment on above: Performed By: #### G LULS #### Point of Care testing , Creatinine Clr Calc Pharmacy 126.74 Normal [facility] Comment on above: Result Comment: PERF ORMED BY: [address] [place] [address] PATHOLOGIST PHOSPHORUS PROCESSING SUPERVISOR RIDEG HUERTA M.D. Performed By: #### G LULS #### Point of Care testing , GFR/1.73 sq M.predicted MDRD (S/P/Bld) [Vol rate/Area] mL/min/{1.73_m2} Normal [facility] Comment on above: Performed By: #### G LULS #### Point of Care testing , Glucose [Mass/Vol] 155 mg/dL High 70-100 [facility] Comment on above: Result Comment: [place] Glucose Reference Range is dependent on time and content of last meal. Glucose of more than 200 mg/dL in a nonstressed, ambulatory subject supports the diagnosis of Diabetes Mellitus. ADA recommended reference range Performed By: #### G GOYOLS #### Point of Care testing , Potassium [Moles/Vol] 4.0 mmol/L Normal 3.5-5.1 [facility] Comment on above: Performed By: #### G GOYOLS #### Point of Care testing , Sodium [Moles/Vol] 135 mmol/L Low 136-145 [facility] Comment on above: Performed By: #### G GOYOLS #### Point of Care testing , Urea nitrogen [Mass/Vol] 10 mg/dL Normal 7-25 [facility] Comment on above: Performed By: #### G GOYOLS #### Point of Care testing , Albumin [Mass/Vol] 3.7 g/dL Normal 3.5-5.7 [facility] Comment on above: Performed By: #### C BC, CMP, FE and TIBC, LIPID, URMA, LDLD #### [address] Albumin/Globulin [Mass ratio] 1.5 {ratio} Normal [facility] Comment on above: Performed By: #### C BC, CMP, FE and TIBC, LIPID, URMA, LDLD #### [address] ALP [Catalytic activity/Vol] 62 U/L Normal 34-104 [facility] Comment on above: Performed By: #### C BC, CMP, FE and TIBC, LIPID, URMA, LDLD #### [address] ALT [Catalytic activity/Vol] 34 U/L Normal 7-52 [facility] Comment on above: Performed By: #### C BC, CMP, FE and TIBC, LIPID, URMA, LDLD #### [address] Anion gap [Moles/Vol] 14.3 mmol/L Normal 6.0-15.0 [facility] Comment on above: Performed By: #### C BC, CMP, FE and TIBC, LIPID, URMA, LDLD #### [address] AST [Catalytic activity/Vol] 74 U/L High 13-39 [facility] Comment on above: Performed By: #### C BC, CMP, FE and TIBC, LIPID, URMA, LDLD #### [address] Bilirubin [Mass/Vol] 0.5 mg/dL Normal 0.3-1.0 [facility] Comment on above: Performed By: #### C BC, CMP, FE and TIBC, LIPID, URMA, LDLD #### [address] Calcium [Mass/Vol] 7.9 mg/dL Low 8.6-10.3 [facility] Comment on above: Performed By: #### C BC, CMP, FE and TIBC, LIPID, URMA, LDLD #### [address] Chloride [Moles/Vol] 102 mmol/L Normal 98-107 [facility] Comment on above: Performed By: #### C BC, CMP, FE and TIBC, LIPID, URMA, LDLD #### [address] CO2 [Moles/Vol] 21.0 mmol/L Normal 21.0-31.0 [facility] Comment on above: Performed By: #### C BC, CMP, FE and TIBC, LIPID, URMA, LDLD #### [address] Creatinine [Mass/Vol] 0.56 mg/dL Low 0.60-1.20 [facility] Comment on above: Performed By: #### C BC, CMP, FE and TIBC, LIPID, URMA, LDLD #### [address] Creatinine Clr Calc Pharmacy 131.27 Normal [facility] Comment on above: Result Comment: PERF ORMED BY: [address] [place] [address] PATHOLOGIST PHOSPHORUS PROCESSING SUPERVISOR RIDGE HUERTA M.D. Performed By: #### C BC, CMP, FE and TIBC, LIPID, URMA, LDLD #### [address] GFR/1.73 sq M.predicted MDRD (S/P/Bld) [Vol rate/Area] mL/min/{1.73_m2} Normal [facility] Comment on above: Performed By: #### C BC, CMP, FE and TIBC, LIPID, URMA, LDLD #### [facility] [address] Globulin (S) [Mass/Vol] 2.4 g/dL Normal T he [facility] Comment on above: Performed By: #### C BC, CMP, FE and TIBC, LIPID, URMA, LDLD #### [address] Glucose [Mass/Vol] 208 mg/dL High 70-100 [facility] Comment on above: Result Comment: [facility] Glucose Reference Range is dependent on time and content of last meal. Glucose of more than 200 mg/dL in a nonstressed, ambulatory subject supports the diagnosis of Diabetes Mellitus. ADA recommended reference range Performed By: #### C BC, CMP, FE and TIBC, LIPID, URMA, LDLD #### [address] Potassium [Moles/Vol] 4.3 mmol/L Normal 3.5-5.1 [facility] Comment on above: Performed By: #### C BC, CMP, FE and TIBC, LIPID, URMA, LDLD #### [address] Protein [Mass/Vol] 6.1 g/dL Low 6.4-8.9 [facility] Comment on above: Performed By: #### C BC, CMP, FE and TIBC, LIPID, URMA, LDLD #### [place] [address] [place] Sodium [Moles/Vol] 133 mmol/L Low 136-145 [facility] Comment on above: Performed By: #### C BC, CMP, FE and TIBC, LIPID, URMA, LDLD #### [address] Urea nitrogen [Mass/Vol] 9 mg/dL Normal 7-25 [facility] Comment on above: Performed By: #### C BC, CMP, FE and TIBC, LIPID, URMA, LDLD #### [address] Dipstick and Microscopicon 0 10-08-2023 Appearance (U) Turbid Critically abnormal Clear [facility] Comment on above: Order Comment: Name Collection Type:: Martinez Catheter Performed By: #### C USTOOL #### [address] Bacteria,Urine None Seen Normal None Seen [facility] Comment on above: Order Comment: Name Collection Type:: Martinez Catheter Performed By: #### C USTOOL #### [place] [address] [place] Bilirubin,Urine 1+ High Negative [facility] Comment on above: Order Comment: Name Collection Type:: Martinez Catheter Performed By: #### C USTOOL #### [address] Glucose Ql (U) 250 mg/dL High Normal [facility] Comment on above: Order Comment: Name Collection Type:: Martinez Catheter Performed By: #### C USTOOL #### [place] [address] [place] Hyaline Casts,Urine None Seen Normal 0-1 [facility] Comment on above: Order Comment: Name Collection Type:: Martinez Catheter Performed By: #### C USTOOL #### [place] [address] [place] Ketones Ql (U) Trace High Negative [facility] Comment on above: Order Comment: Name Collection Type:: Martinez Catheter Performed By: #### C USTOOL #### [address] Leukocyte esterase Test strip Ql (U) Negative Normal Negative [facility] Comment on above: Order Comment: Name Collection Type:: Martinez Catheter Performed By: #### C USTOOL #### [address] Nitrite,Urine Negative Normal Negative [facility] Comment on above: Order Comment: Name Collection Type:: Martinez Catheter Performed By: #### C USTOOL #### [address] Occult Blood,Urine Negative Normal Negative [facility] Comment on above: Order Comment: Name Collection Type:: Martinez Catheter Result Comment: PERF ORMED BY: [place] [address] PATHOLOGIST PHOSPHORUS PROCESSING SUPERVISOR RIDGE HUERTA M.D. Performed By: #### C USTOOL #### [address] Other Casts,Urine None Seen Normal None Seen [facility] Comment on above: Order Comment: Name Collection Type:: Martinez Catheter Result Comment: PERF ORMED BY: [place] [address] PATHOLOGIST PHOSPHORUS PROCESSING SUPERVISOR RIDGE HUERTA M.D. Performed By: #### C USTOOL #### [address] RBC,Urine 5-9 High 0-4 [facility] Comment on above: Order Comment: Name Collection Type:: Martinez Catheter Performed By: #### C USTOOL #### [address] Specificy Harper,Urine > 1.050 High 1.00 1-1.03 0 [facility] Comment on above: Order Comment: Name Collection Type:: Martinez Catheter Performed By: #### C USTOOL #### [place] [address] [place] Squamous Epithelial Cell,Urine 5-9 High 0-2 [facility] Comment on above: Order Comment: Name Collection Type:: Martinez Catheter Performed By: #### C USTOOL #### [address] Urobilinogen,Urine Normal Normal Normal [facility] Comment on above: Order Comment: Name Collection Type:: Martinez Catheter Performed By: #### C USTOOL #### [facility] [address] WBC,Urine 3-4 Normal 0-4 [facility] Comment on above: Order Comment: Name Collection Type:: Martinez Catheter Performed By: #### C USTOOL #### [address] Glucose Poct Glucometerson 0 10-08-2023 Glucose [Mass/Vol] 194 mg/dL Normal [facility] Comment on above: Result Comment: [place] om Glucose Reference Range is dependent on time and content of last meal. Glucose of more than 200 mg/dL in a nonstressed, ambulatory subject supports the diagnosis of Diabetes Mellitus. PERFORMED BY: [place] [address] PATHOLOGIST PHOSPHORUS PROCESSING SUPERVISOR RIDGE HUERTA M.D. Performed By: #### C BC, CMP, FE and TIBC, LIPID, URMA, LDLD #### [address] Commemt1 Glu2: Cleaned Meter Normal [facility] Comment on above: Result Comment: PERF ORMED BY: [place] [address] PATHOLOGIST PHOSPHORUS PROCESSING SUPERVISOR RIDGE HUERTA M.D. Performed By: #### C BC, CMP, FE and TIBC, LIPID, URMA, LDLD #### [address] Glucose [Mass/Vol] 265 mg/dL Normal [facility] Comment on above: Result Comment: [place] om Glucose Reference Range is dependent on time and content of last meal. Glucose of more than 200 mg/dL in a nonstressed, ambulatory subject supports the diagnosis of Diabetes Mellitus. Performed By: #### C BC, CMP, FE and TIBC, LIPID, URMA, LDLD #### [facility] [address] Commemt1 Glu2: Cleaned Meter Normal [facility] Comment on above: Result Comment: PERF ORMED BY: [place] [address] PATHOLOGIST PHOSPHORUS PROCESSING SUPERVISOR RIDGE HUERTA M.D. Performed By: #### G LULS #### Point of Care testing , Glucose [Mass/Vol] 166 mg/dL Normal [facility] Comment on above: Result Comment: [place] om Glucose Reference Range is dependent on time and content of last meal. Glucose of more than 200 mg/dL in a nonstressed, ambulatory subject supports the diagnosis of Diabetes Mellitus. Performed By: #### G LULS #### Point of Care testing , Glucose [Mass/Vol] 168 mg/dL Normal [facility] Comment on above: Result Comment: [place] om Glucose Reference Range is dependent on time and content of last meal. Glucose of more than 200 mg/dL in a nonstressed, ambulatory subject supports the diagnosis of Diabetes Mellitus. PERFORMED BY: [place] [address] PATHOLOGIST PHOSPHORUS PROCESSING SUPERVISOR RIDGE HUERTA M.D. Performed By: #### C BC, CMP, FE and TIBC, LIPID, URMA, LDLD #### [facility] [address] Ketones Auto test strip (U) [Mass/Vol]Ordered By: BONG Pavon on 10-08-2023 Ketones (U) [Mass/Vol] Trace Negative [facility] Lactate [Moles/volume] in Se rum or PlasmaOrdered By: BONG Pavon on 10-08-2023 Lactate [Moles/Vol] 1.9 mmol/L 0.5-2.[address] [facility] Lactic Acidon 10-08-2023 Lactate [Moles/Vol] 2.0 mmol/L Off scale high 0.5-2.2 T [facility] Comment on above: Result Comment: Crit ical Result : Called to and read back by: BERT JAEGER/3S at: 10/08/2023 07:31:51 by:[id number] PERFORMED BY: [place] [address] PATHOLOGIST PHOSPHORUS PROCESSING SUPERVISOR RIDGE HUERTA M.D. Performed By: #### C BC, CMP, FE and TIBC, LIPID, URMA, LDLD #### [address] Lactate [Moles/Vol] 2.6 mmol/L Off scale high 0.5-2.2 [facility] Comment on above: Result Comment: Crit ical Result : Called to and read back by: CLARISSA PATEL at: 10/08/2023 00:48:06 by:HENRY PERFORMED BY: [place] [address] PATHOLOGIST PHOSPHORUS PROCESSING SUPERVISOR RIDGE HUERTA M.D. Performed By: #### C BC, CMP, FE and TIBC, LIPID, URMA, LDLD #### [address] Lactic Acid Reflexon 024 Lactic Acid Reflex 1.9 mmol/L Normal 0.5-2.2 [facility] Comment on above: Result Comment: PERF ORMED BY: [place] [address] PATHOLOGIST PHOSPHORUS PROCESSING SUPERVISOR RIDGE HUERTA M.D. Performed By: #### C BC, CMP, FE and TIBC, LIPID, URMA, LDLD #### [address] Nitrite Test strip Ql (U)Ord ered By: BONG Pavon on 10-08-2023 Nitrite Ql (U) Negative Negative [facility] Protein [Mass/volume] in Ser um or PlasmaOrdered By: BONG Pavon on 10-08-2023 Protein [Mass/Vol] 6.3 g/dL Low 6.4-8.9 [facility] Comment on above: Performed By: #### G LULS #### Point of Care testing , Serum globulin measurement b y calculation (mass/volume)Ordered By: BONG Pavon on 10-08-2023 Globulin (S) [Mass/Vol] 2.6 g/dL Normal F [facility] Comment on above: Performed By: #### G LULS #### Point of Care testing , Serum or plasma albumin/glob ulin mass ratioOrdered By: BONG Pavon on 10-08-2023 Albumin/Globulin [Mass ratio] 1.4 {ratio} Normal [facility] Comment on above: Performed By: #### G LULS #### Point of Care testing , Specific gravity Auto test s trip (U) [Rel density]Ordered By: BONG Pavon on 10-08-2023 Specific gravity (U) [Rel density] > 1.050 1.001-1.03 0 [facility] Squamous epithelial cells de tection in urine sediment by light microscopyOrdered By: BONG Pavon on 10-08-2023 Epithelial cells.squamous LM Ql (Urine sed) 5-9 [HPF] 0-2 [facility] Urine bacteria detection by automated methodOrdered By: BONG Pavon on 10-08-2023 Bacteria Auto Ql (U) None seen None Seen [facility] Urine clarity by refractomet ry automatedOrdered By: BONG Pavon on 10-08-2023 Clarity Refractometry automated (U) Turbid Clear [facility] Urine glucose measurement by automated test strip (mass/volume)Ordered By: ARIELLE Pavon on 10-08-2023 Glucose Auto test strip (U) [Mass/Vol] 250 mg/dL Normal [facility] Urine hemoglobin detection b y automated test stripOrdered By: BONG Pavon on 10-08-2023 Hemoglobin Auto test strip Ql (U) Negative Negative [facility] Urine leukocyte esterase det ection by automated test stripOrdered By: BONG Pavon on 10-08-2023 Leukocyte esterase Auto test strip Ql (U) Negative Negative [facility] Urine pH measurement by auto mated test stripOrdered By: BONG Pavon on 10-08-2023 pH (U) 5.5 [pH] Normal 5.0-9.0 [facility] Comment on above: Order Comment: Name Collection Type:: Martinez Catheter Performed By: #### C USTOOL #### [facility] [address] Urine protein measurement by automated test strip (mass/volume)Ordered By: ARIELLE Pavon on 10-08-2023 Protein (U) [Mass/Vol] 30 mg/dL High Negative [facility] Comment on above: Order Comment: Name Collection Type:: Martinez Catheter Performed By: #### C USTOOL #### [address] Urobilinogen Auto test strip (U) [Mass/Vol]Ordered By: BONG Pavon on 10-08-2023 Urobilinogen (U) [Mass/Vol] Normal mg/dL Normal [facility] Capillary blood glucose ashwini urement by glucometer (mass/volume)Ordered By: Carri Manuel on 09-28-2023 Glucose [Mass/Vol] 196 mg/dL Normal [facility] Comment on above: Random Glucose Refer ence Range is dependent on time and content of last meal. Glucose of more than 200 mg/dL in a nonstressed, ambulatory subject supports the diagnosis of Diabetes Mellitus. Result Comment: [place] om Glucose Reference Range is dependent on time and content of last meal. Glucose of more than 200 mg/dL in a nonstressed, ambulatory subject supports the diagnosis of Diabetes Mellitus. PERFORMED BY: [place] [address] PATHOLOGIST PHOSPHORUS PROCESSING SUPERVISOR RIDGE HUERTA M.D. Performed By: #### C BC, CMP, FE and TIBC, LIPID, URMA, LDLD #### [facility] [address] [place] [address] Glucose Poct Glucometerson 1 11-29-2022 Commemt1 Glu2: Cleaned Meter Normal [facility] Comment on above: Result Comment: PERF ORMED BY: [place] [address] PATHOLOGIST PHOSPHORUS PROCESSING SUPERVISOR RIDGE HUERTA M.D. Performed By: #### G LULS #### Point of Care testing , Glucose [Mass/Vol] 153 mg/dL Normal [facility] Comment on above: Result Comment: [facility] Glucose Reference Range is dependent on time and content of last meal. Glucose of more than 200 mg/dL in a nonstressed, ambulatory subject supports the diagnosis of Diabetes Mellitus. Performed By: #### G LULS #### Point of Care testing , HCG ( test) IA.cashi d Ql (U)Ordered By: Mic Álvarez on 09-28-2023 HCG ( test) Ql (U) Negative [facility] HCG,Urineon 09-28-2023 Beta HCG ( test) Ql (U) Negative Normal [facility] Comment on above: Result Comment: PERF ORMED BY: [place] [address] PATHOLOGIST PHOSPHORUS PROCESSING SUPERVISOR RIDGE HUERTA M.D. Performed By: #### U HCG #### [address] 09-28-2023 L ------- Specimen: [id number] Received: 09/28/23 Status: BOAmeya Val Num: [id number] Spec Type: Surgical Subm Dr: Carri Manuel, Tissues: A Uterus w/ or w/o tubes ovaries except neoplastic or prolap (CERVIX, MIGUELINA TU Procedures: , Gross/Micro L5 Age/ Patient Sex Location Account Attending Physician Rachel Mcgarry 43/F [place] [id number] Carri Manuel DO SPEC NUM: [id number] RECD: 09/28/23 STATUS: BLUE NEAL NUM: [id number] JOSEPH: 09/28/[address] [facility] DR: Carri Manuel DO ENTERED: 09/28/23 [facility] : [place] TYPE: Surgical DEPT: S ORDERED: /, Gross/Micro L5 ORDERED: , Gross/Micro L5 Pathological [...] an unremarkable, pinpoint lumen on cut section. [employer] Agent sections are submitted in 6 cassettes as follows: A1 - Anterior cervix A2 - Posterior cervix A3 - Anterior endomyometrium Specimen: [id number] Received: 09/28/23 Status: BLUE Neal Num: [id number] Spec Type: Surgical Subm Dr: Carri Manuel DO Tissues: A Uterus w/ or w/o tubes ovaries except neoplastic or prolap (CERVIX, MIGUELINA TU Procedures: , Gross/Micro L5 Patient: Rachel Mcgarry [id number] (Continued) Specimen: [id number] Received: 09/28/23 (Continued) Gross Description (Continued) Signed (signature on file) Nikkie Munguia MD 09/29/23 2213 Specimen: [id number] Received: 09/28/23 Status: BLUE Neal Num: [id number] Spec Type: Surgical Subm Dr: Carri Manuel DO Tissues: A Uterus w/ or w/o tubes ovaries except neoplastic or prolap (CERVIX, MIGUELINA TU Procedures: , Gross/Micro L5 Patient: Rachel Mcgarry [id number] (Continued) Specimen: [id number] Received: 09/28/23 (Continued) Gross Description (Continued) A4 - Posterior endomyometrium A5 - Right fallopian tube A6 - Left fallopian tube Microscopic Description Six H E slides reviewed. The microscopic examination confirms the diagnosis. CPT Codes 93725 Specimen: [id number] Received: 09/28/23 Status: BLUE Brito[place]arda Num: [id number] Spec Type: Surgical Subm Dr: Carri Manuel DO Tissues: A Uterus w/ or w/o tubes ovaries except neoplastic or prolap (CERVIX, MIGUELINA TU Procedures: Vik/Claude L5 Patient: Rachel Mcgarry [id number] (Continued) Signed (signature on file) Nikkie Munguia MD 09/29/23 2755 Normal [facility] No Panel InformationOrdered By: Carri Manuel on 09-28-2023 Bedside Glucose Comment Glu2: cleaned meter [facility] Automated basophil %Ordered By: Carri Kaleb on 09-16-2023 Basophils/100 WBC (Bld) 0.6 % Normal . [facility] Comment on above: Performed By: #### G LULS #### Point of Care testing , Automated basophil countOrde red By: Carri Kaleb on 09-16-2023 Basophils (Bld) [#/Vol] 0.1 10*3/uL Normal 0.0-0.2 [facility] Comment on above: Result Comment: PERF ORMED BY: [facility] [address] [place] [address] PATHOLOGIST PHOSPHORUS PROCESSING SUPERVISOR RIDGE HUERTA M.D. Performed By: #### G LULS #### Point of Care testing , Automated blood monocyte cou ntOrdered By: Carri Manuel on 09-16-2023 Monocytes (Bld) [#/Vol] 0.9 10*3/uL High 0.0-0.8 [facility] Comment on above: Performed By: #### G LULS #### Point of Care testing , Automated eosinophil %Ordere d By: Carri Manuel on 09-16-2023 Eosinophils/100 WBC (Bld) 0.5 % Normal . [facility] Comment on above: Performed By: #### G LULS #### Point of Care testing , Automated eosinophil countOr dered By: Carri Manuel on 09-16-2023 Eosinophils (Bld) [#/Vol] 0.1 10*3/uL Normal 0.0-0.45 [facility] Comment on above: Performed By: #### G LULS #### Point of Care testing , Automated monocyte %Ordered By: Carri Manuel on 09-16-2023 Monocytes/100 WBC (Bld) 7.5 % Normal . [facility] Comment on above: Performed By: #### G LULS #### Point of Care testing , Automated neutrophil %Ordere d By: Carri Manuel on 09-16-2023 Neutrophils/100 WBC (Bld) 66.5 % Normal . [facility] Comment on above: Performed By: #### G LULS #### Point of Care testing , Basic Metabolic Panelon 09-03 GFR/1.73 sq M.predicted MDRD (S/P/Bld) [Vol rate/Area] mL/min/{1.73_m2} Normal [facility] Comment on above: Performed By: #### G LULS #### Point of Care testing , Calcium [Mass/volume] in Ser um or PlasmaOrdered By: Carri Manuel on 09-16-2023 Calcium [Mass/Vol] 9.3 mg/dL Normal 8.6-10.3 [facility] Comment on above: Result Comment: PERF ORMED BY: [facility] [address] [place] [address] PATHOLOGIST PHOSPHORUS PROCESSING SUPERVISOR RIDGE HUERTA M.D. Performed By: #### G LULS #### Point of Care testing , Carbon dioxide, total [Moles /volume] in Serum or PlasmaOrdered By: Carri Manuel on 09-16-2023 CO2 [Moles/Vol] 25.5 mmol/L Normal 21.0-31.0 [facility] Comment on above: Performed By: #### G LULS #### Point of Care testing , Chloride [Moles/volume] in S alissa or PlasmaOrdered By: Carri Manuel on 09-16-2023 Chloride [Moles/Vol] 99 mmol/L Normal 98-107 [facility] Comment on above: Performed By: #### G LULS #### Point of Care testing , Complete Blood Count Auto Di ffon 09-16-2023 Mean Corpuscular HGB Conc 33.5 g/dL Normal 32.0-35.0 [facility] Comment on above: Performed By: #### G LULS #### Point of Care testing , NRBC% 0.1 /100{WBC} Normal 0-0.5 [facility] Comment on above: Performed By: #### G LULS #### Point of Care testing , Creatinine [Mass/volume] in Serum or PlasmaOrdered By: Carri Manuel on 09-16-2023 Creatinine [Mass/Vol] 0.68 mg/dL Normal 0.60-1.20 [facility] Comment on above: Performed By: #### G GOYOLS #### Point of Care testing , Erythrocyte distribution wid th [Ratio] by Automated countOrdered By: Carri Manuel on 09-16-2023 Erythrocyte distribution width (RBC) [Ratio] 13.3 % Normal 11.9-15.3 [facility] Comment on above: Performed By: #### G LULS #### Point of Care testing , Erythrocytes [#/volume] in B lood by Automated countOrdered By: Carri Manuel on 09-16-2023 RBC (Bld) [#/Vol] 4.31 10*6/uL Normal 3.60-5.[address] [facility] Comment on above: Performed By: #### G LULS #### Point of Care testing , Glucose [Mass/volume] in Ser um or PlasmaOrdered By: Carri Manuel on 09-16-2023 Glucose [Mass/Vol] 355 mg/dL High 70-100 [facility] Comment on above: ADA recommended refe rence rangeRandom Glucose Reference Range is dependent on time and content of last meal. Glucose of more than 200 mg/dL in a nonstressed, ambulatory subject supports the diagnosis of Diabetes Mellitus. Result Comment: [place] om Glucose Reference Range is dependent on [...] (Bld) [Volume fraction] 38.3 % Normal 34.0-46.4 [facility] Comment on above: Performed By: #### G LULS #### Point of Care testing , Hemoglobin [Mass/volume] in BloodOrdered By: Carri Manuel on 09-16-2023 Hemoglobin (Bld) [Mass/Vol] 12.8 g/dL Normal 11.8-15.4 [facility] Comment on above: Performed By: #### G LULS #### Point of Care testing , Leukocytes [#/volume] correc cherie for nucleated erythrocytes in Blood by Automated counOrdered By: Carri Manuel on 09-16-2023 WBC corrected for nucl RBC Auto (Bld) [#/Vol] 12.5 10*3/uL 3.8-11.6 [facility] Leukocytes [#/volume] in Blo od by Automated countOrdered By: Carri Manuel on 09-16-2023 WBC (Bld) [#/Vol] 12.5 10*3/uL High 3.8-11.[address] [facility] Comment on above: Performed By: #### G LULS #### Point of Care testing , Lymphocytes [#/volume] in Bl ood by Automated countOrdered By: Carri aMnuel on 09-16-2023 Lymphocytes (Bld) [#/Vol] 3.1 10*3/uL Normal 1.00-4.8 [facility] Comment on above: Performed By: #### G LULS #### Point of Care testing , Lymphocytes/100 leukocytes i n Blood by Automated countOrdered By: Carri Manuel on 09-16-2023 Lymphocytes/100 WBC (Bld) 24.9 % Normal . [facility] Comment on above: Performed By: #### G LULS #### Point of Care testing , MCH [Entitic mass] by Automa cherie countOrdered By: Carri Manuel on 09-16-2023 MCH (RBC) [Entitic mass] 29.7 pg Normal 24.7-34.3 [facility] Comment on above: Performed By: #### G LULS #### Point of Care testing , MCHC Auto (RBC) [Mass/Vol]Or dered By: Carri Manuel on 09-16-2023 MCHC (RBC) [Mass/Vol] 33.5 g/dL 32.0-35.0 [facility] MCV [Entitic volume] by Auto mated countOrdered By: aCrri Manuel on 09-16-2023 MCV (RBC) [Entitic vol] 88.8 fL Normal 80-100 [facility] Comment on above: Performed By: #### G LULS #### Point of Care testing , Neutrophils [#/volume] in Bl ood by Automated countOrdered By: Carri Manuel on 09-16-2023 Neutrophils (Bld) [#/Vol] 8.3 10*3/uL High 1.8-7.7 [facility] Comment on above: Performed By: #### G LULS #### Point of Care testing , No Panel InformationOrdered By: Carri Manuel on 09-16-2023 Estimated GFR (CKD-EPI) > 60.0 mL/Min [facility] Creatinine Clearance (Chem N/A [facility] Nucleated erythrocytes [Pres ence] in Blood by Automated countOrdered By: Carri Manuel on 09-16-2023 Nucleated RBC Auto Ql (Bld) 0.1 /100{WBC} 0-0.5 [facility] PST Type and Screenon 2022 ABO and Rh group Nom (Bld) Blood group A Rh(D) positive Normal [facility] Comment on above: Order Comment: Date of Surgery: [id number] Result Comment: PERF ORMED BY: [facility] [address] [place] [address] PATHOLOGIST PHOSPHORUS PROCESSING SUPERVISOR RIDGE HUERTA M.D. Platelet mean volume [Entiti c volume] in Blood by Automated countOrdered By: Carri Manuel on 09-16-2023 Platelet mean volume (Bld) [Entitic vol] 8.2 fL Normal 6.3-10.7 [facility] Comment on above: Performed By: #### G EDUARDO #### Point of Care testing , Platelets [#/volume] in Bloo d by Automated countOrdered By: Carri Manuel on 09-16-2023 Platelets (Bld) [#/Vol] 305 10*3/uL Normal 150-450 [facility] Comment on above: Performed By: #### G GOYOLS #### Point of Care testing , Potassium [Moles/volume] in Serum or PlasmaOrdered By: Carri Manuel on 09-16-2023 Potassium [Moles/Vol] 5.0 mmol/L Normal 3.5-5.1 [facility] Comment on above: Performed By: #### G LULS #### Point of Care testing , Serum or plasma anion gap de terminationOrdered By: Carri Manuel on 09-16-2023 Anion gap [Moles/Vol] 14.5 mmol/L Normal 6.0-15.0 [facility] Comment on above: Performed By: #### G LULS #### Point of Care testing , Sodium [Moles/volume] in Ser um or PlasmaOrdered By: Carri Springcatrina on 09-16-2023 Sodium [Moles/Vol] 134 mmol/L Low 136-145 [facility] Comment on above: Performed By: #### G LULS #### Point of Care testing , Urea nitrogen [Mass/volume] in Serum or PlasmaOrdered By: Carri Springcatrina on 09-16-2023 Urea nitrogen [Mass/Vol] 13 mg/dL Normal 7-25 [facility] Comment on above: Performed By: #### G LULS #### Point of Care testing , ABO/Rh Retypeon 07-13-2023 ABO/RH Recheck Result Positive Normal [facility] Comment on above: Result Comment: PERF ORMED BY: [facility] [address] [place] [address] PATHOLOGIST PHOSPHORUS PROCESSING SUPERVISOR RIDGE HUERTA M.D. Capillary blood glucose ashwini urement by glucometer (mass/volume)Ordered By: Carri Springcatrina on 07-13-2023 Glucose [Mass/Vol] 119 mg/dL Normal [facility] Comment on above: Random Glucose Refer ence Range is dependent on time and content of last meal. Glucose of more than 200 mg/dL in a nonstressed, ambulatory subject supports the diagnosis of Diabetes Mellitus. Result Comment: [place] Glucose Reference Range is dependent on time and content of last meal. Glucose of more than 200 mg/dL in a nonstressed, ambulatory subject supports the diagnosis of Diabetes Mellitus. PERFORMED BY: [facility] [address] [place] [address] PATHOLOGIST PHOSPHORUS PROCESSING SUPERVISOR RIDGE HUERTA M.D. Performed By: #### C BC, CMP, FE and TIBC, LIPID, URMA, LDLD #### [place] [address] Glucose Poct Glucometerson 1 Commemt1 Glu2: Cleaned Meter Normal [facility] Comment on above: Result Comment: PERF ORMED BY: [place] [address] PATHOLOGIST PHOSPHORUS PROCESSING SUPERVISOR RIDGE HUERTA M.D. Performed By: #### C USTOOL #### [address] Glucose [Mass/Vol] 133 mg/dL Normal [facility] Comment on above: Result Comment: [facility] Glucose Reference Range is dependent on time and content of last meal. Glucose of more than 200 mg/dL in a nonstressed, ambulatory subject supports the diagnosis of Diabetes Mellitus. Performed By: #### C USTOOL #### [address] HCG ( test) IA.mateus d Ql (U)Ordered By: Julio Monroe on 07-13-2023 HCG ( test) Ql (U) Negative [facility] HCG,Urineon 07-13-2023 Beta HCG ( test) Ql (U) Negative Normal [facility] Comment on above: Result Comment: PERF ORMED BY: [place] [address] PATHOLOGIST PHOSPHORUS PROCESSING SUPERVISOR RIDGE HUERTA M.D. Performed By: #### G LULS #### Point of Care testing , Mark 07-13-2023 L ------- Specimen: [id number] Received: 07/13/23 Status: BULE Neal Num: [id number] Spec Type: Surgical Subm Dr: Carri Manuel, DO Tissues: A Endometrium - Curettings (EMC) Procedures: HE/2, Gross/Micro L4 Age/ Patient Sex Location Account Attending Physician Rachel Mcgarry 43/F [place] [id number] Carri Manuel DO SPEC NUM: [id number] RECD: 07/13/23 STATUS: BLUE VAL NUM: [id number] JOSEPH: 07/13/23- SUBM DR: Carri Manuel DO ENTERED: 07/13/[address] [facility] [address]: HALLEY TYPE: Surgical DEPT: S ORDERED: [...] submitted in one cassette labeled A1. Specimen: [id number] Received: 07/13/23 Status: BLUE Brito[place]arda Num: [id number] Spec Type: Surgical Subm Dr: Carri Manuel DO Tissues: A Endometrium - Curettings (EMC) Procedures: HE/2, Gross/Micro L4 Patient: Rachel Mcgarry [id number] (Continued) Specimen: [id number] Received: 07/13/23 (Continued) Signed (signature on file) Philomena Grimm MD 07/14/23 4288 Specimen: [id number] Received: 07/13/23 Status: BLUE Neal Num: [id number] Spec Type: Surgical Subm Dr: Carri Manuel DO Tissues: A Endometrium - Curettings (EMC) Procedures: HE/2, Gross/Micro L4 Patient: Rachel Mcgarry [id number] (Continued) Specimen: [id number] Received: 07/13/23 (Continued) Microscopic Description Two H E slides reviewed. The microscopic examination confirms the diagnosis. CPT Codes 02224 Specimen: [id number] Received: 07/13/23 Status: BLUE Neal Num: [id number] Spec Type: Surgical Subm Dr: Carri Manuel DO Tissues: A Endometrium - Curettings (EMC) Procedures: HE/2, Gross/Micro L4 Patient: Rachel Mcgarry [id number] (Continued) Signed (signature on file) Philomena Grimm MD 07/14/23 2071 Normal [facility] No Panel InformationOrdered By: Carri Manuel on 07-13-2023 Bedside Glucose Comment Glu2: cleaned meter [facility] Automated basophil %Ordered By: Carri Manuel on 06-30-2023 Basophils/100 WBC (Bld) 0.7 % Normal . [facility] Comment on above: Performed By: #### C USTOOL #### [facility] [address] Automated basophil countOrde red By: Carri Manuel on 06-30-2023 Basophils (Bld) [#/Vol] 0.1 10*3/uL Normal 0.0-0.2 [facility] Comment on above: Result Comment: PERF ORMED BY: [place] [address] PATHOLOGIST PHOSPHORUS PROCESSING SUPERVISOR RIDGE HUERTA M.D. Performed By: #### C USTOOL #### [address] Automated blood monocyte cou ntOrdered By: Carri Kaleb on 06-30-2023 Monocytes (Bld) [#/Vol] 1.2 10*3/uL High 0.0-0.8 [facility] Comment on above: Performed By: #### C USTOOL #### [address] Automated eosinophil %Ordere d By: Carri Manuel on 06-30-2023 Eosinophils/100 WBC (Bld) 0.4 % Normal . [facility] Comment on above: Performed By: #### C USTOOL #### [address] Automated eosinophil countOr dered By: Carri Kaleb on 06-30-2023 Eosinophils (Bld) [#/Vol] 0.1 10*3/uL Normal 0.0-0.45 [facility] Comment on above: Performed By: #### C USTOOL #### [address] Automated monocyte %Ordered By: Carri Kaleb on 06-30-2023 Monocytes/100 WBC (Bld) 7.5 % Normal . [facility] Comment on above: Performed By: #### C USTOOL #### [address] Automated neutrophil %Ordere d By: Carri Kaleb on 06-30-2023 Neutrophils/100 WBC (Bld) 63.6 % Normal . [facility] Comment on above: Performed By: #### C USTOOL #### [address] Basic Metabolic Panelon 06-05 GFR/1.73 sq M.predicted MDRD (S/P/Bld) [Vol rate/Area] mL/min/{1.73_m2} Normal [facility] Comment on above: Performed By: #### C BC, CMP, FE and TIBC, LIPID, URMA, LDLD #### [address] Calcium [Mass/volume] in Ser um or PlasmaOrdered By: Carri Manuel on 06-30-2023 Calcium [Mass/Vol] 9.2 mg/dL Normal 8.6-10.3 [facility] Comment on above: Result Comment: PERF ORMED BY: [place] [address] PATHOLOGIST PHOSPHORUS PROCESSING SUPERVISOR RIDGE HUERTA M.D. Performed By: #### C BC, CMP, FE and TIBC, LIPID, URMA, LDLD #### [address] Carbon dioxide, total [Moles /volume] in Serum or PlasmaOrdered By: Carri Manuel on 06-30-2023 CO2 [Moles/Vol] 26.7 mmol/L Normal 21.0-31.0 [facility] Comment on above: Performed By: #### C BC, CMP, FE and TIBC, LIPID, URMA, LDLD #### [place] [address] [place] Chloride [Moles/volume] in S alissa or PlasmaOrdered By: Carri Manuel on 06-30-2023 Chloride [Moles/Vol] 100 mmol/L Normal 98-107 [facility] Comment on above: Performed By: #### C BC, CMP, FE and TIBC, LIPID, URMA, LDLD #### [place] [id number] [place] Complete Blood Count Auto Di ffon 06-30-2023 Mean Corpuscular HGB Conc 33.5 g/dL Normal 32.0-35.0 [facility] Comment on above: Performed By: #### C USTOOL #### [facility] [address] NRBC% 0.0 /100{WBC} Normal 0-0.5 [facility] Comment on above: Performed By: #### C USTOOL #### [facility] [address] [place] [address] Creatinine [Mass/volume] in Serum or PlasmaOrdered By: Carri Manuel on 06-30-2023 Creatinine [Mass/Vol] 0.54 mg/dL Low 0.60-1.20 [facility] Comment on above: Performed By: #### C BC, CMP, FE and TIBC, LIPID, URMA, LDLD #### [facility] [address] [place] [address] ECG 12 lead ECGon 06-30-2023 ECG 12 lead ECG [facility] [place] [address] [place] [address] Electrocardiograph Report Signed Patient: Rachel Mcgarry MR#: [id number] 1 : 1980 Acct:[id number] Age/Sex: 43 / F ADM Date: 06/30/23 Loc: Room: Type: [facility] Attending Dr: Carri Manuel DO Ordering Provider: [...] By Vamsi Ospina MD 0834 Normal [facility] Erythrocyte distribution wid th [Ratio] by Automated countOrdered By: Carri Manuel on 06-30-2023 Erythrocyte distribution width (RBC) [Ratio] 13.3 % Normal 11.9-15.3 [facility] Comment on above: Performed By: #### C USTOOL #### [facility] [address] Erythrocytes [#/volume] in B lood by Automated countOrdered By: Carri Manuel on 06-30-2023 RBC (Bld) [#/Vol] 4.34 10*6/uL Normal 3.60-5.[address] [facility] Comment on above: Performed By: #### C USTOOL #### [facility] [address] [place] [address] [place] Glucose [Mass/volume] in Ser um or PlasmaOrdered By: Carri Manuel on 06-30-2023 Glucose [Mass/Vol] 134 mg/dL High 70-100 [facility] Comment on above: ADA recommended refe rence rangeRandom Glucose Reference Range is dependent on time and content of last meal. Glucose of more than 200 mg/dL in a nonstressed, ambulatory subject supports the diagnosis of Diabetes Mellitus. Result Comment: [place] om Glucose Reference Range is dependent on time and content of last meal. Glucose of more than 200 mg/dL in a nonstressed, ambulatory subject supports the diagnosis of Diabetes Mellitus. ADA recommended reference range Performed By: #### C BC, CMP, FE and TIBC, LIPID, URMA, LDLD #### [facility] [address] [place] [address] [place] Hematocrit [Volume Fraction] of Blood by Automated countOrdered By: Carri Manuel on 06-30-2023 Hematocrit (Bld) [Volume fraction] 38.9 % Normal 34.0-46.4 [facility] Comment on above: Performed By: #### C USTOOL #### [address] Hemoglobin [Mass/volume] in BloodOrdered By: Carri Manuel on 06-30-2023 Hemoglobin (Bld) [Mass/Vol] 13.0 g/dL Normal 11.8-15.4 [facility] Comment on above: Performed By: #### C USTOOL #### [address] Leukocytes [#/volume] correc cherie for nucleated erythrocytes in Blood by Automated counOrdered By: Carri Manuel on 06-30-2023 WBC corrected for nucl RBC Auto (Bld) [#/Vol] 15.4 10*3/uL 3.8-11.6 [facility] Leukocytes [#/volume] in Blo od by Automated countOrdered By: Carri Manuel on 06-30-2023 WBC (Bld) [#/Vol] 15.4 10*3/uL High 3.8-11.[address] [facility] Comment on above: Performed By: #### C USTOOL #### [address] Lymphocytes [#/volume] in Bl ood by Automated countOrdered By: Carri Manuel on 06-30-2023 Lymphocytes (Bld) [#/Vol] 4.3 10*3/uL Normal 1.00-4.8 [facility] Comment on above: Performed By: #### C USTOOL #### [address] Lymphocytes/100 leukocytes i n Blood by Automated countOrdered By: Carri Manuel on 06-30-2023 Lymphocytes/100 WBC (Bld) 27.8 % Normal . [facility] Comment on above: Performed By: #### C USTOOL #### [address] MCH [Entitic mass] by Automa cherie countOrdered By: Carri Manuel on 06-30-2023 MCH (RBC) [Entitic mass] 30.0 pg Normal 24.7-34.3 [facility] Comment on above: Performed By: #### C USTOOL #### [address] MCHC Auto (RBC) [Mass/Vol]Or dered By: Carri Manuel on 06-30-2023 MCHC (RBC) [Mass/Vol] 33.5 g/dL 32.0-35.0 [facility] MCV [Entitic volume] by Auto mated countOrdered By: Carri Kaleb on 06-30-2023 MCV (RBC) [Entitic vol] 89.6 fL Normal 80-100 [facility] Comment on above: Performed By: #### C USTOOL #### [address] Neutrophils [#/volume] in Bl ood by Automated countOrdered By: Carri Manuel on 06-30-2023 Neutrophils (Bld) [#/Vol] 9.8 10*3/uL High 1.8-7.7 [facility] Comment on above: Performed By: #### C USTOOL #### [facility] [address] [place] [address] No Panel InformationOrdered By: Carri Manuel on 06-30-2023 Estimated GFR (CKD-EPI) > 60.0 mL/Min [facility] Creatinine Clearance (Chem N/A [facility] Nucleated erythrocytes [Pres ence] in Blood by Automated countOrdered By: Carri Manuel on 06-30-2023 Nucleated RBC Auto Ql (Bld) 0.0 /100{WBC} 0-0.5 [facility] PST Type and Screenon 2022 ABO and Rh group Nom (Bld) Blood group A Rh(D) positive Normal [facility] Comment on above: Order Comment: Date of Surgery: [id number] Order Comment: Reaso n for Exam Type 2 diabetes mellitus without complication, without long- Result Comment: PERF ORMED BY: [place] [address] PATHOLOGIST PHOSPHORUS PROCESSING SUPERVISOR RIDGE HUERTA M.D. Platelet mean volume [Entiti c volume] in Blood by Automated countOrdered By: Carri Manuel on 06-30-2023 Platelet mean volume (Bld) [Entitic vol] 7.9 fL Normal 6.3-10.7 [facility] Comment on above: Performed By: #### C USTOOL #### [address] Platelets [#/volume] in Bloo d by Automated countOrdered By: Carri Springcatrina on 06-30-2023 Platelets (Bld) [#/Vol] 275 10*3/uL Normal 150-450 [facility] Comment on above: Performed By: #### C USTOOL #### [facility] [address] Potassium [Moles/volume] in Serum or PlasmaOrdered By: Carri Kaleb on 06-30-2023 Potassium [Moles/Vol] 4.3 mmol/L Normal 3.5-5.1 [facility] Comment on above: Performed By: #### C BC, CMP, FE and TIBC, LIPID, URMA, LDLD #### [facility] [address] [place] [address] Serum or plasma anion gap de terminationOrdered By: Carri Kaleb on 06-30-2023 Anion gap [Moles/Vol] 14.6 mmol/L Normal 6.0-15.0 [facility] Comment on above: Performed By: #### C BC, CMP, FE and TIBC, LIPID, URMA, LDLD #### [facility] [address] [place] [address] [place] Sodium [Moles/volume] in Ser um or PlasmaOrdered By: Carri Kaleb on 06-30-2023 Sodium [Moles/Vol] 137 mmol/L Normal 136-145 [facility] Comment on above: Performed By: #### C BC, CMP, FE and TIBC, LIPID, URMA, LDLD #### [facility] [address] [place] [address] Urea nitrogen [Mass/volume] in Serum or PlasmaOrdered By: Crari Kaleb on 06-30-2023 Urea nitrogen [Mass/Vol] 11 mg/dL Normal 7-25 [facility] Comment on above: Performed By: #### C BC, CMP, FE and TIBC, LIPID, URMA, LDLD #### [facility] [address] [place] [address] HCG ( test) Funmi jackson Ql (U)Ordered By: Kyler Miramontes on 05-05-2023 HCG ( test) Ql (U) Negative [facility] HCG,Urineon 05-05-2023 Beta HCG ( test) Ql (U) Negative Normal [facility] Comment on above: Result Comment: PERF ORMED BY: [place] [address] PATHOLOGIST PHOSPHORUS PROCESSING SUPERVISOR RIDGE HUERTA M.D. Performed By: #### C BC, CMP, FE and TIBC, LIPID, URMA, LDLD #### [address] Alanine aminotransferase [En zymatic activity/volume] in Serum or PlasmaOrdered By: Ajit Pettit on 05-04-2023 ALT [Catalytic activity/Vol] 17 U/L Normal 7-52 [facility] Comment on above: Performed By: #### C BC, CMP, FE and TIBC, LIPID, URMA, LDLD #### [place] [address] [place] Albumin [Mass/volume] in Ser um or Plasma by Bromocresol green (BCG) dye binding methoOrdered By: Ajit Pettit on 05-04-2023 Albumin BCG dye [Mass/Vol] 4.4 g/dL 3.5-5.7 [facility] Alkaline phosphatase [Enzyma tic activity/volume] in Serum or PlasmaOrdered By: Ajit Pettit on 05-04-2023 ALP [Catalytic activity/Vol] 55 U/L Normal 34-104 [facility] Comment on above: Performed By: #### C BC, CMP, FE and TIBC, LIPID, URMA, LDLD #### [place] [address] [place] Aspartate aminotransferase [ Enzymatic activity/volume] in Serum or PlasmaOrdered By: Ajti Pettit on 05-04-2023 AST [Catalytic activity/Vol] 18 U/L Normal 13-39 [facility] Comment on above: Performed By: #### C BC, CMP, FE and TIBC, LIPID, URMA, LDLD #### [place] [address] [place] Automated basophil %Ordered By: Ajit Pettit on 05-04-2023 Basophils/100 WBC (Bld) 0.9 % Normal . [facility] Comment on above: Performed By: #### C BC, CMP, FE and TIBC, LIPID, URMA, LDLD #### [address] Automated basophil countOrde red By: Ajit Pettit on 05-04-2023 Basophils (Bld) [#/Vol] 0.1 10*3/uL Normal 0.0-0.2 [facility] Comment on above: Result Comment: PERF ORMED BY: [place] [address] PATHOLOGIST PHOSPHORUS PROCESSING SUPERVISOR RIDGE HUERTA M.D. Performed By: #### C BC, CMP, FE and TIBC, LIPID, URMA, LDLD #### [address] Automated blood monocyte cou ntOrdered By: Ajit Pettit on 05-04-2023 Monocytes (Bld) [#/Vol] 0.9 10*3/uL High 0.0-0.8 [facility] Comment on above: Performed By: #### C BC, CMP, FE and TIBC, LIPID, URMA, LDLD #### [address] Automated eosinophil %Ordere d By: Ajit Pettit on 05-04-2023 Eosinophils/100 WBC (Bld) 0.5 % Normal . [facility] Comment on above: Performed By: #### C BC, CMP, FE and TIBC, LIPID, URMA, LDLD #### [address] Automated eosinophil countOr dered By: Ajit Pettit on 05-04-2023 Eosinophils (Bld) [#/Vol] 0.1 10*3/uL Normal 0.0-0.45 [facility] Comment on above: Performed By: #### C BC, CMP, FE and TIBC, LIPID, URMA, LDLD #### [address] [place] [address] [place] Automated monocyte %Ordered By: Ajit Spasic on 05-04-2023 Monocytes/100 WBC (Bld) 6.3 % Normal . F [facility] Comment on above: Performed By: #### C BC, CMP, FE and TIBC, LIPID, URMA, LDLD #### [facility] [address] Automated neutrophil %Ordere d By: Ajit Spasic on 05-04-2023 Neutrophils/100 WBC (Bld) 70.0 % Normal . [facility] Comment on above: Performed By: #### C BC, CMP, FE and TIBC, LIPID, URMA, LDLD #### [facility] [address] Bilirubin.total [Mass/volume ] in Serum or PlasmaOrdered By: Ajit Spasic on 05-04-2023 Bilirubin [Mass/Vol] 0.3 mg/dL Normal 0.3-1.0 [facility] Comment on above: Performed By: #### C BC, CMP, FE and TIBC, LIPID, URMA, LDLD #### [facility] [address] Calcium [Mass/volume] in Ser um or PlasmaOrdered By: Ajit Lariossic on 05-04-2023 Calcium [Mass/Vol] 9.6 mg/dL Normal 8.6-10.3 [facility] Comment on above: Performed By: #### C BC, CMP, FE and TIBC, LIPID, URMA, LDLD #### [facility] [address] Carbon dioxide, total [Moles /volume] in Serum or PlasmaOrdered By: Ajit Spasic on 05-04-2023 CO2 [Moles/Vol] 28.5 mmol/L Normal 21.0-31.0 [facility] Comment on above: Performed By: #### C BC, CMP, FE and TIBC, LIPID, URMA, LDLD #### [facility] [address] [place] [address] [place] Chloride [Moles/volume] in S alissa or PlasmaOrdered By: Ajit Pettit on 05-04-2023 Chloride [Moles/Vol] 100 mmol/L Normal 98-107 [facility] Comment on above: Performed By: #### C BC, CMP, FE and TIBC, LIPID, URMA, LDLD #### [facility] [address] [place] [id number] [place] Cholesterol [Mass/volume] in Serum or PlasmaOrdered By: Ajit Pettit on 05-04-2023 Cholesterol [Mass/Vol] 180 mg/dL Normal 140-200 [facility] Comment on above: Chol less than 200 m g/dl low riskChol 201-239 mg/dl borderline riskChol 240 mg/dl and greater high risk Result Comment: Chol less than 200 mg/dl low risk Chol 201-239 mg/dl borderline risk Chol 240 mg/dl and greater high risk Performed By: #### C BC, CMP, FE and TIBC, LIPID, URMA, LDLD #### [facility] [address] [place] [id number] [place] Cholesterol in LDL Calc [Mas s/Vol]Ordered By: Ajit Pettit on 05-04-2023 Cholesterol in LDL [Mass/Vol] 81 mg/dL 0-100 [facility] Comment on above: LDL ATP III CLASSIFI CATIONLDL less than 100 mg/dL OptimalLDL 100-129 mg/dL Near or above optimalLDL 130-159 mg/dL Borderline highLDL 160-189 mg/dL HighLDL greater than 189 mg/dL Very high Cholesterol in VLDL Calc [Ma ss/Vol]Ordered By: Ajit Pettit on 05-04-2023 Cholesterol in VLDL [Mass/Vol] 46 mg/dL [facility] Complete Blood Count Auto Di ffon 05-04-2023 Mean Corpuscular HGB Conc 33.5 g/dL Normal 32.0-35.0 [facility] Comment on above: Performed By: #### C BC, CMP, FE and TIBC, LIPID, URMA, LDLD #### [facility] [address] [place] [address] [place] NRBC% 0.1 /100{WBC} Normal 0-0.5 [facility] Comment on above: Performed By: #### C BC, CMP, FE and TIBC, LIPID, URMA, LDLD #### [address] Comprehensive Metabolic Pane mark 05-04-2023 Albumin [Mass/Vol] 4.4 g/dL Normal 3.5-5.7 [facility] Comment on above: Performed By: #### C BC, CMP, FE and TIBC, LIPID, URMA, LDLD #### [address] GFR/1.73 sq M.predicted MDRD (S/P/Bld) [Vol rate/Area] mL/min/{1.73_m2} Normal [facility] Comment on above: Performed By: #### C BC, CMP, FE and TIBC, LIPID, URMA, LDLD #### [address] Creatinine [Mass/volume] in Serum or PlasmaOrdered By: Ajit Pettit on 05-04-2023 Creatinine [Mass/Vol] 0.65 mg/dL Normal 0.60-1.20 [facility] Comment on above: Performed By: #### C BC, CMP, FE and TIBC, LIPID, URMA, LDLD #### [address] Erythrocyte distribution wid th [Ratio] by Automated countOrdered By: Ajit Pettit on 05-04-2023 Erythrocyte distribution width (RBC) [Ratio] 13.4 % Normal 11.9-15.3 [facility] Comment on above: Performed By: #### C BC, CMP, FE and TIBC, LIPID, URMA, LDLD #### [address] Erythrocytes [#/volume] in B lood by Automated countOrdered By: Ajit Pettit on 05-04-2023 RBC (Bld) [#/Vol] 4.68 10*6/uL Normal 3.60-5.[address] [facility] Comment on above: Performed By: #### C BC, CMP, FE and TIBC, LIPID, URMA, LDLD #### [facility] [address] [place] [address] [place] FE PROon 05-04-2023 % Iron Saturation 20.0 % Normal 20-50 [facility] Comment on above: Performed By: #### C BC, CMP, FE and TIBC, LIPID, URMA, LDLD #### [facility] [address] Total Iron Binding Capacity 476 ug/dL High 255-450 [facility] Comment on above: Performed By: #### C BC, CMP, FE and TIBC, LIPID, URMA, LDLD #### [facility] [address] Ferritin [Mass/volume] in Se rum or PlasmaOrdered By: Ajit Pettit on 05-04-2023 Ferritin [Mass/Vol] 90.4 ng/mL Normal 11.0-306.[address] [facility] Comment on above: Performed By: #### C BC, CMP, FE and TIBC, LIPID, URMA, LDLD #### [facility] [address] Glucose [Mass/volume] in Ser um or PlasmaOrdered By: Ajit Pettit on 05-04-2023 Glucose [Mass/Vol] 124 mg/dL High 70-100 [facility] Comment on above: ADA recommended refe rence rangeRandom Glucose Reference Range is dependent on time and content of last meal. Glucose of more than 200 mg/dL in a nonstressed, ambulatory subject supports the diagnosis of Diabetes Mellitus. Result Comment: [place] om Glucose Reference Range is dependent on time and content of last meal. Glucose of more than 200 mg/dL in a nonstressed, ambulatory subject supports the diagnosis of Diabetes Mellitus. ADA recommended reference range Performed By: #### C BC, CMP, FE and TIBC, LIPID, URMA, LDLD #### [facility] [address] Hematocrit [Volume Fraction] of Blood by Automated countOrdered By: Ajit Pettit on 05-04-2023 Hematocrit (Bld) [Volume fraction] 41.7 % Normal 34.0-46.4 [facility] Comment on above: Performed By: #### C BC, CMP, FE and TIBC, LIPID, URMA, LDLD #### [facility] [address] [place] [address] [place] Hemoglobin [Mass/volume] in BloodOrdered By: Ajit Pettit on 05-04-2023 Hemoglobin (Bld) [Mass/Vol] 14.0 g/dL Normal 11.8-15.4 [facility] Comment on above: Performed By: #### C BC, CMP, FE and TIBC, LIPID, URMA, LDLD #### [facility] [address] Iron [Mass/volume] in Serum or PlasmaOrdered By: Ajit Pettit on 05-04-2023 Iron [Mass/Vol] 95 ug/dL Normal 50-212 [facility] Comment on above: Performed By: #### C BC, CMP, FE and TIBC, LIPID, URMA, LDLD #### [facility] [address] Iron binding capacity [Mass/ volume] in Serum or PlasmaOrdered By: Ajit Pettit on 05-04-2023 Iron binding capacity [Mass/Vol] 476 ug/dL 255-450 [facility] Iron saturation [Mass Fracti on] in Serum or PlasmaOrdered By: Ajit Pettit on 05-04-2023 Iron saturation [Mass fraction] 20.0 % 20-50 [facility] Leukocytes [#/volume] correc cherie for nucleated erythrocytes in Blood by Automated counOrdered By: Ajit Pettit on 05-04-2023 WBC corrected for nucl RBC Auto (Bld) [#/Vol] 14.4 10*3/uL 3.8-11.6 [facility] Leukocytes [#/volume] in Blo od by Automated countOrdered By: Ajit Pettit on 05-04-2023 WBC (Bld) [#/Vol] 14.4 10*3/uL High 3.8-11.[address] [facility] Comment on above: Performed By: #### C BC, CMP, FE and TIBC, LIPID, URMA, LDLD #### [facility] [address] Lipid Panelon 05-04-2023 LDL Cholesterol,Calculated 81 mg/dL Normal 0-100 [facility] Comment on above: Result Comment: LDL ATP III CLASSIFICATION LDL less than 100 mg/dL Optimal LDL 100-129 mg/dL Near or above optimal LDL 130-159 mg/dL Borderline high LDL 160-189 mg/dL High LDL greater than 189 mg/dL Very high Performed By: #### C BC, CMP, FE and TIBC, LIPID, URMA, LDLD #### [address] Triglyceride w/Reflex 233 mg/dL High 0-149 [facility] Comment on above: Result Comment: TRIG ATP III CLASSIFICATION TRIG less than 150 mg/dL Normal TRIG 150-199 mg/dL Borderline high TRIG 200-500 mg/dL High TRIG greater than 500 mg/dL Very high Standard traceable to the Center for Disease Conrtrol and Prevention (CDC) test method. Performed By: #### C BC, CMP, FE and TIBC, LIPID, URMA, LDLD #### [address] VLDL CHOLESTEROL 46 mg/dL Normal [facility] Comment on above: Performed By: #### C BC, CMP, FE and TIBC, LIPID, URMA, LDLD #### [place] [address] [place] Lymphocytes [#/volume] in Bl ood by Automated countOrdered By: Ajit Pettit on 05-04-2023 Lymphocytes (Bld) [#/Vol] 3.2 10*3/uL Normal 1.00-4.8 [facility] Comment on above: Performed By: #### C BC, CMP, FE and TIBC, LIPID, URMA, LDLD #### [facility] [address] [place] [address] [place] Lymphocytes/100 leukocytes i n Blood by Automated countOrdered By: Ajit Pettit on 05-04-2023 Lymphocytes/100 WBC (Bld) 22.3 % Normal . [facility] Comment on above: Performed By: #### C BC, CMP, FE and TIBC, LIPID, URMA, LDLD #### [facility] [address] MCH [Entitic mass] by Automa cherie countOrdered By: Ajit Pettit on 05-04-2023 MCH (RBC) [Entitic mass] 29.8 pg Normal 24.7-34.3 [facility] Comment on above: Performed By: #### C BC, CMP, FE and TIBC, LIPID, URMA, LDLD #### [facility] [address] MCHC Auto (RBC) [Mass/Vol]Or dered By: Ajit Pettit on 05-04-2023 MCHC (RBC) [Mass/Vol] 33.5 g/dL 32.0-35.0 [facility] MCV [Entitic volume] by Auto mated countOrdered By: Ajit Pettit on 05-04-2023 MCV (RBC) [Entitic vol] 89.1 fL Normal 80-100 [facility] Comment on above: Performed By: #### C BC, CMP, FE and TIBC, LIPID, URMA, LDLD #### [address] Neutrophils [#/volume] in Bl ood by Automated countOrdered By: Ajit Pettit on 05-04-2023 Neutrophils (Bld) [#/Vol] 10.1 10*3/uL High 1.8-7.7 [facility] Comment on above: Performed By: #### C BC, CMP, FE and TIBC, LIPID, URMA, LDLD #### [facility] [address] [place] [address] No Panel InformationOrdered By: Ajit Pettit on 05-04-2023 Estimated GFR (CKD-EPI) > 60.0 mL/Min [facility] Creatinine Clearance (Chem N/A [facility] Nucleated erythrocytes [Pres ence] in Blood by Automated countOrdered By: Ajit Pettit on 05-04-2023 Nucleated RBC Auto Ql (Bld) 0.1 /100{WBC} 0-0.5 [facility] Platelet mean volume [Entiti c volume] in Blood by Automated countOrdered By: Ajit Pettit on 05-04-2023 Platelet mean volume (Bld) [Entitic vol] 8.4 fL Normal 6.3-10.7 [facility] Comment on above: Performed By: #### C BC, CMP, FE and TIBC, LIPID, URMA, LDLD #### [facility] [address] Platelets [#/volume] in Bloo d by Automated countOrdered By: Ajit Pettit on 05-04-2023 Platelets (Bld) [#/Vol] 328 10*3/uL Normal 150-450 [facility] Comment on above: Performed By: #### C BC, CMP, FE and TIBC, LIPID, URMA, LDLD #### [facility] [address] Potassium [Moles/volume] in Serum or PlasmaOrdered By: Ajit Pettit on 05-04-2023 Potassium [Moles/Vol] 5.3 mmol/L High 3.5-5.1 [facility] Comment on above: Performed By: #### C BC, CMP, FE and TIBC, LIPID, URMA, LDLD #### [facility] [address] [place] [address] Protein [Mass/volume] in Ser um or PlasmaOrdered By: Ajit Pettit on 05-04-2023 Protein [Mass/Vol] 6.7 g/dL Normal 6.4-8.9 [facility] Comment on above: Performed By: #### C BC, CMP, FE and TIBC, LIPID, URMA, LDLD #### [address] Serum globulin measurement b y calculation (mass/volume)Ordered By: Ajit Pettit on 05-04-2023 Globulin (S) [Mass/Vol] 2.3 g/dL Normal F [facility] Comment on above: Performed By: #### C BC, CMP, FE and TIBC, LIPID, URMA, LDLD #### [facility] [address] Serum or plasma albumin/glob ulin mass ratioOrdered By: Ajit Pettit on 05-04-2023 Albumin/Globulin [Mass ratio] 1.9 {ratio} Normal [facility] Comment on above: Performed By: #### C BC, CMP, FE and TIBC, LIPID, URMA, LDLD #### [facility] [address] Serum or plasma anion gap de terminationOrdered By: Ajit Pettit on 05-04-2023 Anion gap [Moles/Vol] 11.8 mmol/L Normal 6.0-15.0 [facility] Comment on above: Performed By: #### C BC, CMP, FE and TIBC, LIPID, URMA, LDLD #### [facility] [address] [place] [address] Serum or plasma high density lipoprotein (HDL) cholesterol measurementOrdered By: Ajit Pettit on 05-04-2023 Cholesterol in HDL [Mass/Vol] 52 mg/dL Normal 23-92 [facility] Comment on above: HDL CHOL ATP-III CLA SSIFICATION Cardiovascular RiskHDL > or equal to 60 mg/dL LOWHDL < 40 mg/dL HIGH Result Comment: HDL CHOL ATP-III CLASSIFICATION Cardiovascular Risk HDL > or equal to 60 mg/dL LOW HDL < 40 mg/dL HIGH Performed By: #### C BC, CMP, FE and TIBC, LIPID, URMA, LDLD #### [facility] [address] Serum or plasma total choles terol/high density lipoprotein (HDL) cholesterol mass ratOrdered By: Ajit Pettit on 05-04-2023 Cholesterol.total/Suellen sterol in HDL [Mass ratio] 3.5 {ratio} Normal <5.0 [facility] Comment on above: Performed By: #### C BC, CMP, FE and TIBC, LIPID, URMA, LDLD #### [address] Sodium [Moles/volume] in Ser um or PlasmaOrdered By: Ajit Pettit on 05-04-2023 Sodium [Moles/Vol] 135 mmol/L Low 136-145 [facility] Comment on above: Performed By: #### C BC, CMP, FE and TIBC, LIPID, URMA, LDLD #### [address] Thyroid Stim Hormone w/Rflxo n 05-04-2023 Thyroid Stim Hormone w/Rflx 1.97 u[iU]/mL Normal 0.45-5.33 [facility] Comment on above: Result Comment: PERF ORMED BY: [place] [address] PATHOLOGIST PHOSPHORUS PROCESSING SUPERVISOR RIDGE HUERTA M.D. Performed By: #### C BC, CMP, FE and TIBC, LIPID, URMA, LDLD #### [address] Thyrotropin [Units/volume] i n Serum or PlasmaOrdered By: Ajit Pettit on 05-04-2023 TSH Qn 1.97 m[IU]/L 0.45-5.33 [facility] Transferrin [Mass/volume] in Serum or PlasmaOrdered By: Ajit Pettit on 05-04-2023 Transferrin [Mass/Vol] 340 mg/dL Normal 203-362 [facility] Comment on above: Performed By: #### C BC, CMP, FE and TIBC, LIPID, URMA, LDLD #### [address] Triglyceride [Mass/volume] i n Serum or PlasmaOrdered By: Ajit Pettit on 05-04-2023 Triglyceride [Mass/Vol] 233 mg/dL 0-149 [facility] Comment on above: TRIG ATP III CLASSIF ICATIONTRIG less than 150 mg/dL NormalTRIG 150-199 mg/dL Borderline highTRIG 200-500 mg/dL High TRIG greater than 500 mg/dL Very highStandard traceable to the Center for Disease Conrtrol and Prevention (CDC) test method. Urea nitrogen [Mass/volume] in Serum or PlasmaOrdered By: Ajit Pettit on 05-04-2023 Urea nitrogen [Mass/Vol] 9 mg/dL Normal 7-25 [facility] Comment on above: Performed By: #### C BC, CMP, FE and TIBC, LIPID, URMA, LDLD #### [facility] [address] Urine Cultureon 05-04-2023 Bacteria identified Cx Nom (U) ORGANISM: Strep. agalactiae Grp B (O:B) Vail Count <10,000 PERFORMED BY: [place] [address] PATHOLOGIST PHOSPHORUS PROCESSING SUPERVISOR RIDGE HUERTA M.D. Normal [facility] Comment on above: Performed By: #### C USTOOL #### [facility] [address] [place] [address] Urine culture routineOrdered By: Ajit Pettit on 05-04-2023 Bacteria identified Cx Nom (U) Strep. agalactiae Grp B [facility] XR thoracic spine 3V*on 04-04 XR thoracic spine 3V* [facility] [place] [address] [place] [address] XRay Report Signed Patient: Rachel Mcgarry MR#: [id number] 1 : 1980 Acct:[id number] Age/Sex: 43 / F ADM Date: 04/26/23 Loc: [place] Room: Type: [facility] Attending Dr: Kyler Miramontes MD Copies to: [...] Yeboah Jr., D.O.04/26/2023 1:04 PM Dictation Location: [place] [address] Transcribed By: [facility] 04/26/23 1304 Dictated By: Andrés Yeboah Jr, DO 04/26/23 1303 Signed By: 04/26/23 1304 Normal [facility] HCG ( test) IA.rapi d Ql (U)Ordered By: Kyler Miramontes on 04-14-2023 HCG ( test) Ql (U) Negative [facility] HCG,Urineon 04-14-2023 Beta HCG ( test) Ql (U) Negative Normal [facility] Comment on above: Result Comment: PERF ORMED BY: [place] [address] PATHOLOGIST PHOSPHORUS PROCESSING SUPERVISOR RIDGE HUERTA M.D. Performed By: #### U HCG #### [address] CBC AUTO DIFFon 02-15-2023 BASO # 0.1 103/ul Normal 0.0-0.1 [facility] Comment on above: Performed By: #### C BC #### [facility] [address] [place] [address] Dr. Vito Grimm Basophils/100 WBC (Bld) 0.5 % Normal 0.2-2.0 [facility] Comment on above: Performed By: #### C BC #### [facility] [address] [address] [address] Vito Grimm EO # 0.1 103/ul Normal 0.0-0.7 [facility] Comment on above: Performed By: #### C BC #### [facility] [address] [place] [address] [address] Vito Grimm Eosinophils/100 WBC (Bld) 0.8 % Critically low 0.9-7.0 [facility] Comment on above: Performed By: #### C BC #### [facility] [address] [place] [address] Dr. Vito Grimm Erythrocyte distribution width (RBC) [Ratio] 13.1 % Normal 11.0-15.0 [facility] Comment on above: Performed By: #### C BC #### [facility] [address] [place] [address] Dr. Vito Grimm Hematocrit (Bld) [Volume fraction] 41.2 % Normal 36.0-48.0 [facility] Comment on above: Performed By: #### C BC #### [facility] [address] [place] [address] Dr. Vito Grimm Hemoglobin (Bld) [Mass/Vol] 13.4 g/dL Normal 12.0-16.0 [facility] Comment on above: Performed By: #### C BC #### [facility] [address] [place] [address] Dr. Vito Grimm IG # 0.05 10e3/ul Critically high 0.00-0.03 [facility] Comment on above: Performed By: #### C BC #### [facility] [address] [place] [address] Dr. Vito Grimm IG % 0.4 % Normal 0.0-0.5 [facility] Comment on above: Performed By: #### C BC #### [facility] [address] [place] [address] Dr. Vito Grimm LYMPH # 4.8 103/ul Critically high 1.2-3.8 [facility] Comment on above: Performed By: #### C BC #### [facility] [address] [place] [address] Dr. Vito Grimm Lymphocytes/100 WBC (Bld) 38.8 % Normal 20.5-60.0 [facility] Comment on above: Performed By: #### C BC #### [facility] [address] [place] [address] Dr. Vito Grimm MANUAL DIFF REQ NO Normal [facility] Comment on above: Performed By: #### C BC #### [facility] [address] [place] [address] Dr. Vito Grimm MCH (RBC) [Entitic mass] 29.9 pg Normal 26.7-34.0 [facility] Comment on above: Performed By: #### C BC #### [facility] [address] [place] [address] [address] Vito Grimm MCHC (RBC) [Mass/Vol] 32.5 g/dL Normal 29.9-35.2 [facility] Comment on above: Performed By: #### C BC #### [facility] [address] [place] [address] [address] Vito Grimm MCV (RBC) [Entitic vol] 92.0 fL Normal 81.0-99.0 [facility] Comment on above: Performed By: #### C BC #### [facility] [address] [place] [address] Dr. Vito Grimm MONO # 0.9 103/ul Critically high 0.3-0.8 [facility] Comment on above: Performed By: #### C BC #### [facility] [address] [place] [address] Dr. Vito Grimm Monocytes/100 WBC (Bld) 7.4 % Normal 1.7-12.0 [facility] Comment on above: Performed By: #### C BC #### [facility] [address] [place] [address] Dr. Vito Grimm NEUT # 6.5 103/ul Normal 1.4-6.5 [facility] Comment on above: Performed By: #### C BC #### [facility] [address] [place] [address] Dr. Vito Grimm Neutrophils/100 WBC (Bld) 52.1 % Normal 43.0-75.0 [facility] Comment on above: Performed By: #### C BC #### [facility] [address] [place] [address] Dr. Vito Grimm Platelet mean volume (Bld) [Entitic vol] 10.0 fL Normal 9.5-13.5 [facility] Comment on above: Performed By: #### C BC #### [facility] [address] [place] [address] Dr. Vito Grimm PLT 298 103/ul Normal 150-450 [facility] Comment on above: Performed By: #### C BC #### [facility] [address] [place] [address] Dr. Vito Grimm RBC 4.48 106/ul Normal 4.20-5.40 [facility] Comment on above: Performed By: #### C BC #### [facility] [address] [place] [address] Dr. Vito Grimm WBC 12.4 103/ul Critically high 4.0-11.0 [facility] Comment on above: Performed By: #### C BC #### [facility] [address] [place] [address] Dr. Vito Grimm DEPAKENE/ VALPROIC ACIDon DEPAKENE 49.4 ug/ml Critically low 50.0-100.0 [facility] Comment on above: Performed By: #### C MP, HSTROPN #### [facility] [address] [place] [address] Dr. Vito Grimm LACTATE/LACTIC ACIDon 2022 Lactate [Moles/Vol] 2.7 mmol/L Critically high 0.4-2.0 [facility] Comment on above: Performed By: #### L ACT #### [facility] [address] [place] [address] Dr. Vito Grimm PROF CHEM 8 (BAS METB)on Anion gap [Moles/Vol] 17.6 mmol/L Normal [facility] Comment on above: Performed By: #### B MP #### [facility] [address] [place] [address] Dr. Vito Grimm Calcium [Mass/Vol] 8.7 mg/dL Normal 8.5-10.1 [facility] Comment on above: Performed By: #### B MP #### [facility] [address] [place] [address] Dr. Vito Grimm Chloride [Moles/Vol] 99 mmol/L Normal 98-107 [facility] Comment on above: Performed By: #### B MP #### [facility] [address] [place] [address] Dr. Vito Grimm CO2 [Moles/Vol] 23.5 mmol/L Normal 21.0-32.0 [facility] Comment on above: Performed By: #### B MP #### [facility] [address] [place] [address] Dr. Vito Grimm Creatinine [Mass/Vol] 0.75 mg/dL Normal 0.55-1.02 [facility] Comment on above: Performed By: #### B MP #### [facility] [address] [address] [address] Vito Grimm EGFR-AF EMIRATI >60 Normal >=60 [facility] Comment on above: Performed By: #### B MP #### [facility] [address] [place] [address] Dr. Vito Grimm EGFR-NON AF EMIRATI >60 Normal >=60 [facility] Comment on above: Performed By: #### B MP #### [facility] [address] [place] [address] Dr. Vito Grimm Glucose [Mass/Vol] 273 mg/dL Critically high 74-[address] [facility] Comment on above: Performed By: #### B MP #### [facility] [address] [place] [address] Dr. Vito Grimm Potassium [Moles/Vol] 4.1 mmol/L Normal 3.5-5.1 [facility] Comment on above: Performed By: #### B MP #### [facility] [address] [place] [address] Dr. Vito Grimm Sodium [Moles/Vol] 136 mmol/L Normal 136-145 [facility] Comment on above: Performed By: #### B MP #### [facility] [address] [place] [address] Dr. Vito Grimm Urea nitrogen [Mass/Vol] 6.0 mg/dL Critically low 7.0-18.0 [facility] Comment on above: Performed By: #### B MP #### [facility] [address] [place] [address] Dr. Vito Grimm Urea nitrogen/Creatinine [Mass ratio] 8.0 mg/mg Normal [facility] Comment on above: Performed By: #### B MP #### [facility] [address] [address] [address] Vito Grimm Alanine aminotransferase [En zymatic activity/volume] in Serum or PlasmaOrdered By: Ajit Pettit on 02-09-2023 ALT [Catalytic activity/Vol] 29 U/L 7-52 [facility] Albumin [Mass/volume] in Ser um or Plasma by Bromocresol green (BCG) dye binding methoOrdered By: Ajit Pettit on 02-09-2023 Albumin BCG dye [Mass/Vol] 4.4 g/dL 3.5-5.7 [facility] Alkaline phosphatase [Enzyma tic activity/volume] in Serum or PlasmaOrdered By: Ajit Millanc on 02-09-2023 ALP [Catalytic activity/Vol] 72 U/L 34-104 [facility] Aspartate aminotransferase [ Enzymatic activity/volume] in Serum or PlasmaOrdered By: Ajit Millanc on 02-09-2023 AST [Catalytic activity/Vol] 27 U/L 13-39 [facility] Basophils Auto (Bld) [#/Vol] Ordered By: Ajit Millanc on 02-09-2023 Basophils (Bld) [#/Vol] 0.1 10*3/uL 0.0-0.2 [facility] Basophils/100 WBC Auto (Bld) Ordered By: Ajit Millanc on 02-09-2023 Basophils/100 WBC (Bld) 0.6 % . [facility] Bilirubin.total [Mass/volume ] in Serum or PlasmaOrdered By: Ajit Millanc on 02-09-2023 Bilirubin [Mass/Vol] 0.3 mg/dL 0.3-1.0 [facility] Calcium [Mass/volume] in Ser um or PlasmaOrdered By: Ajit Millanc on 02-09-2023 Calcium [Mass/Vol] 9.3 mg/dL 8.6-10.3 [facility] Carbon dioxide, total [Moles /volume] in Serum or PlasmaOrdered By: Ajit Millanc on 02-09-2023 CO2 [Moles/Vol] 23.8 mmol/L 21.0-31.0 [facility] Chloride [Moles/volume] in S alissa or PlasmaOrdered By: Ajit Pettit on 02-09-2023 Chloride [Moles/Vol] 101 mmol/L 98-107 [facility] Cholesterol [Mass/volume] in Serum or PlasmaOrdered By: Ajit Pettit on 02-09-2023 Cholesterol [Mass/Vol] 166 mg/dL 140-200 [facility] Comment on above: Chol less than 200 m g/dl low riskChol 201-239 mg/dl borderline riskChol 240 mg/dl and greater high risk Cholesterol in LDL Calc [Mas s/Vol]Ordered By: Ajit Pettit on 02-09-2023 Cholesterol in LDL [Mass/Vol] TNP [facility] Comment on above: Test not performed Cholesterol in LDL [Mass/vol ume] in Serum or PlasmaOrdered By: Ajit Pettit on 02-09-2023 Cholesterol in LDL [Mass/Vol] 61 mg/dL 0-100 [facility] Comment on above: LDL ATP III CLASSIFI CATIONLDL less than 100 mg/dL OptimalLDL 100-129 mg/dL Near or above optimalLDL 130-159 mg/dL Borderline highLDL 160-189 mg/dL HighLDL greater than 189 mg/dL Very high Cholesterol in VLDL Calc [Ma ss/Vol]Ordered By: Ajit Pettit on 02-09-2023 Cholesterol in VLDL [Mass/Vol] 97 mg/dL [facility] Creatinine [Mass/volume] in Serum or PlasmaOrdered By: Ajit Pettit on 02-09-2023 Creatinine [Mass/Vol] 0.75 mg/dL 0.60-1.20 [facility] Eosinophils Auto (Bld) [#/Vo l]Ordered By: Ajit Pettit on 02-09-2023 Eosinophils (Bld) [#/Vol] 0.1 10*3/uL 0.0-0.45 [facility] Eosinophils/100 WBC Auto (Bl d)Ordered By: Ajit Pettit on 02-09-2023 Eosinophils/100 WBC (Bld) 0.7 % . [facility] Erythrocyte distribution wid th Auto (RBC) [Ratio]Ordered By: Ajit Pettit on 02-09-2023 Erythrocyte distribution width (RBC) [Ratio] 13.1 % 11.9-15.3 [facility] Globulin Calc (S) [Mass/Vol] Ordered By: Ajit Pettit on 02-09-2023 Globulin (S) [Mass/Vol] 2.3 g/dL F [facility] Glucose [Mass/volume] in Ser um or PlasmaOrdered By: Ajit Pettit on 02-09-2023 Glucose [Mass/Vol] 286 mg/dL 70-100 [facility] Comment on above: ADA recommended refe rence rangeRandom Glucose Reference Range is dependent on time and content of last meal. Glucose of more than 200 mg/dL in a nonstressed, ambulatory subject supports the diagnosis of Diabetes Mellitus. Hematocrit Auto (Bld) [Volum e fraction]Ordered By: Ajit Pettit on 02-09-2023 Hematocrit (Bld) [Volume fraction] 39.7 % 34.0-46.4 [facility] Hemoglobin [Mass/volume] in BloodOrdered By: Ajit Pettit on 02-09-2023 Hemoglobin (Bld) [Mass/Vol] 13.1 g/dL 11.8-15.4 [facility] Leukocytes [#/volume] correc cherie for nucleated erythrocytes in Blood by Automated counOrdered By: Ajit Pettit on 02-09-2023 WBC corrected for nucl RBC Auto (Bld) [#/Vol] 13.2 10*3/uL 3.8-11.6 [facility] Lymphocytes Auto (Bld) [#/Vo l]Ordered By: Aijt Pettit on 02-09-2023 Lymphocytes (Bld) [#/Vol] 3.6 10*3/uL 1.00-4.8 [facility] Lymphocytes/100 WBC Auto (Bl d)Ordered By: Ajit Pettit on 02-09-2023 Lymphocytes/100 WBC (Bld) 27.3 % . [facility] MCH Auto (RBC) [Entitic mass ]Ordered By: Ajit Pettit on 02-09-2023 MCH (RBC) [Entitic mass] 29.5 pg 24.7-34.3 [facility] MCHC Auto (RBC) [Mass/Vol]Or dered By: Ajit Pettit on 02-09-2023 MCHC (RBC) [Mass/Vol] 33.1 g/dL 32.0-35.0 [facility] MCV Auto (RBC) [Entitic vol] Ordered By: Ajit Pettit on 02-09-2023 MCV (RBC) [Entitic vol] 89.3 fL 80-100 [facility] Monocytes Auto (Bld) [#/Vol] Ordered By: Ajit Pettit on 02-09-2023 Monocytes (Bld) [#/Vol] 0.9 10*3/uL 0.0-0.8 [facility] Monocytes/100 WBC Auto (Bld) Ordered By: Ajit Pettit on 02-09-2023 Monocytes/100 WBC (Bld) 7.0 % . [facility] Neutrophils Auto (Bld) [#/Vo l]Ordered By: Ajit Pettit on 02-09-2023 Neutrophils (Bld) [#/Vol] 8.5 10*3/uL 1.8-7.7 [facility] Neutrophils/100 WBC Auto (Bl d)Ordered By: Ajit Pettit on 02-09-2023 Neutrophils/100 WBC (Bld) 64.4 % . [facility] No Panel InformationOrdered By: Ajit Pettit on 02-09-2023 Estimated GFR (CKD-EPI) > 60.0 mL/Min [facility] Creatinine Clearance (Chem N/A [facility] Nucleated erythrocytes [Pres ence] in Blood by Automated countOrdered By: Ajit Pettit on 02-09-2023 Nucleated RBC Auto Ql (Bld) 0.0 /100{WBC} 0-0.5 [facility] Platelet mean volume Auto (B ld) [Entitic vol]Ordered By: Ajit Pettit on 02-09-2023 Platelet mean volume (Bld) [Entitic vol] 8.8 fL 6.3-10.7 [facility] Platelets Auto (Bld) [#/Vol] Ordered By: Ajit Pettit on 02-09-2023 Platelets (Bld) [#/Vol] 295 10*3/uL 150-450 [facility] Potassium [Moles/volume] in Serum or PlasmaOrdered By: Ajit Pettit on 02-09-2023 Potassium [Moles/Vol] 4.5 mmol/L 3.5-5.1 [facility] Protein [Mass/volume] in Ser um or PlasmaOrdered By: Ajit Pettit on 02-09-2023 Protein [Mass/Vol] 6.7 g/dL 6.4-8.9 [facility] RBC Auto (Bld) [#/Vol]Ordere d By: Ajit Pettit on 02-09-2023 RBC (Bld) [#/Vol] 4.44 10*6/uL 3.60-5.[address] [facility] Serum or plasma albumin/glob ulin mass ratioOrdered By: Ajit Pettit on 02-09-2023 Albumin/Globulin [Mass ratio] 1.9 {ratio} [facility] Serum or plasma anion gap de terminationOrdered By: Ajit Pettit on 02-09-2023 Anion gap [Moles/Vol] 15.7 mmol/L 6.0-15.0 [facility] Serum or plasma high density lipoprotein (HDL) cholesterol measurementOrdered By: Ajit Pettit on 02-09-2023 Cholesterol in HDL [Mass/Vol] 41 mg/dL 35-85 [facility] Comment on above: HDL CHOL ATP-III CLA SSIFICATION Cardiovascular RiskHDL > or equal to 60 mg/dL LOWHDL < 40 mg/dL HIGH Serum or plasma total choles terol/high density lipoprotein (HDL) cholesterol mass ratOrdered By: Ajit Pettit on 02-09-2023 Cholesterol.total/Suellen sterol in HDL [Mass ratio] 4.0 {ratio} <5.0 [facility] Sodium [Moles/volume] in Ser um or PlasmaOrdered By: Ajit Pettit on 02-09-2023 Sodium [Moles/Vol] 136 mmol/L 136-145 [facility] Thyrotropin [Units/volume] i n Serum or PlasmaOrdered By: Ajit Pettit on 02-09-2023 TSH Qn 2.98 m[IU]/L 0.45-5.33 [facility] Triglyceride [Mass/volume] i n Serum or PlasmaOrdered By: Ajit Pettit on 02-09-2023 Triglyceride [Mass/Vol] 485 mg/dL 0-149 [facility] Comment on above: If the triglyceride [...] 02-09-2023 Urea nitrogen [Mass/Vol] 10 mg/dL 7- [facility] Urine culture routineOrdered By: Ajit Pettit on 02-09-2023 Bacteria identified Cx Nom (U) 2 Days [facility] WBC Auto (Bld) [#/Vol]Ordere d By: Ajit Pettit on 02-09-2023 WBC (Bld) [#/Vol] 13.2 10*3/uL 3.8-11.[address] [facility] ACETONE SERUMon 01-29-2023 ACETONE Negative Normal NEGATIVE [facility] Comment on above: Performed By: #### A CETON #### [facility] [address] [place] [address] Dr. Vito Grimm CBC AUTO DIFFon 01-29-2023 BASO # 0.1 103/ul Normal 0.0-0.1 [facility] Comment on above: Performed By: #### C BC #### [facility] [address] [place] [address] Dr. Vito Grimm Basophils/100 WBC (Bld) 0.5 % Normal 0.2-2.0 [facility] Comment on above: Performed By: #### C BC #### [facility] [address] [place] [address] Dr. Vito Grimm EO # 0.1 103/ul Normal 0.0-0.7 [facility] Comment on above: Performed By: #### C BC #### [facility] [address] [place] [address] Dr. Vito Grimm Eosinophils/100 WBC (Bld) 0.7 % Critically low 0.9-7.0 [facility] Comment on above: Performed By: #### C BC #### [facility] [address] [place] [address] Dr. Vito Grimm Erythrocyte distribution width (RBC) [Ratio] 12.9 % Normal 11.0-15.0 [facility] Comment on above: Performed By: #### C BC #### [facility] [address] [place] [address] Dr. Vito Grmim Hematocrit (Bld) [Volume fraction] 39.0 % Normal 36.0-48.0 [facility] Comment on above: Performed By: #### C BC #### [facility] [address] [place] [address] Dr. Vito Grimm Hemoglobin (Bld) [Mass/Vol] 13.1 g/dL Normal 12.0-16.0 [facility] Comment on above: Performed By: #### C BC #### [facility] [address] [place] [address] Dr. Vito Grimm IG # 0.11 10e3/ul Critically high 0.00-0.03 [facility] Comment on above: Performed By: #### C BC #### [facility] [address] [place] [address] Dr. Vito Grimm IG % 0.8 % Critically high 0.0-0.5 [facility] Comment on above: Performed By: #### C BC #### [facility] [address] [place] [address] Dr. Vito Grimm LYMPH # 4.6 103/ul Critically high 1.2-3.8 [facility] Comment on above: Performed By: #### C BC #### [facility] [address] [place] [address] Dr. Vito Grimm Lymphocytes/100 WBC (Bld) 34.4 % Normal 20.5-60.0 [facility] Comment on above: Performed By: #### C BC #### [facility] [address] [place] [address] Dr. Vito Grimm MANUAL DIFF REQ NO Normal [facility] Comment on above: Performed By: #### C BC #### [facility] [address] [place] [address] Dr. Vito Grimm MCH (RBC) [Entitic mass] 29.9 pg Normal 26.7-34.0 [facility] Comment on above: Performed By: #### C BC #### [facility] [address] [place] [address] Dr. Vito Grimm MCHC (RBC) [Mass/Vol] 33.6 g/dL Normal 29.9-35.2 [facility] Comment on above: Performed By: #### C BC #### [facility] [address] [place] [address] Dr. Vito Grimm MCV (RBC) [Entitic vol] 89.0 fL Normal 81.0-99.0 [facility] Comment on above: Performed By: #### C BC #### [facility] [address] [place] [address] Dr. Vito Grimm MONO # 1.0 103/ul Critically high 0.3-0.8 [facility] Comment on above: Performed By: #### C BC #### [facility] [address] [place] [address] Dr. Vito Grimm Monocytes/100 WBC (Bld) 7.3 % Normal 1.7-12.0 [facility] Comment on above: Performed By: #### C BC #### [facility] [address] [place] [address] Dr. Vito Grimm NEUT # 7.5 103/ul Critically high 1.4-6.5 [facility] Comment on above: Performed By: #### C BC #### [facility] [address] [place] [address] Dr. Vito Grimm Neutrophils/100 WBC (Bld) 56.3 % Normal 43.0-75.0 [facility] Comment on above: Performed By: #### C BC #### [facility] [address] [place] [address] Dr. Vito Grimm Platelet mean volume (Bld) [Entitic vol] 9.6 fL Normal 9.5-13.5 [facility] Comment on above: Performed By: #### C BC #### [facility] [address] [place] [address] Dr. Vito Grimm PLT 272 103/ul Normal 150-450 [facility] Comment on above: Performed By: #### C BC #### [facility] [address] [place] [address] Dr. Vito Grimm RBC 4.38 106/ul Normal 4.20-5.40 [facility] Comment on above: Performed By: #### C BC #### [facility] [address] [place] [address] Dr. Vito Grimm WBC 13.4 103/ul Critically high 4.0-11.0 [facility] Comment on above: Performed By: #### C BC #### [facility] [address] [place] [address] Dr. Vito Grimm ER URINE PROFILEon 3 Bilirubin Ql (U) Negative Normal NEGATIVE [facility] Comment on above: Performed By: #### E RUR #### [facility] [address] [place] [address] Dr. Vito Grimm Clarity (U) SL CLOUDY Abnormal CLEAR [facility] Comment on above: Performed By: #### E RUR #### [facility] [address] [place] [address] Dr. Vito Grimm Color (U) LT. YELLOW Normal YELLOW [facility] Comment on above: Performed By: #### E RUR #### [facility] [address] [place] [address] Dr. Vito ELIZABETH A micrscopic examina tion will be performed if indicated. Normal [facility] Comment on above: Performed By: #### E RUR #### [facility] [address] [place] [address] Dr. Vito Grimm Glucose Ql (U) >1000 Abnormal NEGATIVE [facility] Comment on above: Performed By: #### E RUR #### [facility] [address] [place] [address] Dr. Vito Grimm Hemoglobin Ql (U) Negative Normal NEGATIVE [facility] Comment on above: Performed By: #### E RUR #### [facility] [address] [place] [address] Dr. Vito Grimm Ketones Ql (U) Negative Normal NEGATIVE [facility] Comment on above: Performed By: #### E RUR #### [facility] [address] [place] [address] Dr. Vito Grimm LEUKOCYTES Negative Normal NEGATIVE [facility] Comment on above: Performed By: #### E RUR #### [facility] [address] [place] [address] Dr. Vito Grimm Nitrite Ql (U) Negative Normal NEGATIVE [facility] Comment on above: Performed By: #### E RUR #### [facility] [address] [place] [address] Dr. Vito Grimm pH (U) 5.5 [pH] Normal 5-9 [facility] Comment on above: Performed By: #### E RUR #### [facility] [address] [place] [address] Dr. Vito Grimm SPEC GRAVITY 1.010 Normal 1.005-<=1. 025 [facility] Comment on above: Performed By: #### E RUR #### [facility] [address] [place] [address] Dr. Vito Grimm UA PROTEIN Negative Normal NEGATIVE/ TRACE [facility] Comment on above: Performed By: #### E RUR #### [facility] [address] [place] [address] Dr. Vito Grimm UR MICRO IND NOT INDICATED Normal [facility] Comment on above: Performed By: #### E RUR #### [facility] [address] [place] [address] Dr. Vito Grimm Urobilinogen Qn (U) 0.2 {Helen'U}/dL Normal 0.2 - 1. 0 [facility] Comment on above: Performed By: #### E RUR #### [facility] [address] [place] [address] Dr. Vito Grimm POINT OF CARE GLUCOSEon 01-03 Glucose [Mass/Vol] 279 mg/dL Critically high 74-[address] [facility] Comment on above: Performed By: #### P OCGLUC #### [facility] [address] [place] [address] Dr. Vito Grimm PROF 14(COMP METB)on 023 Albumin [Mass/Vol] 3.5 g/dL Normal 3.4-5.0 [facility] Comment on above: Performed By: #### C MATHIEU, HSTROPN #### [facility] [address] [place] [address] Dr. Vito Grimm Albumin/Globulin [Mass ratio] 1.0 {ratio} Normal [facility] Comment on above: Performed By: #### C MATHIEU, HSTROPN #### [facility] [address] [place] [address] Dr. Vito Grimm ALP [Catalytic activity/Vol] 85 U/L Normal 46-116 [facility] Comment on above: Performed By: #### C MATHIEU, HSTROPN #### [facility] [address] [place] [address] Dr. Vito Grimm ALT [Catalytic activity/Vol] 28 U/L Normal 14-59 [facility] Comment on above: Performed By: #### C MATHIEU, HSTROPN #### [facility] [address] [place] [address] Dr. Vito Grimm Anion gap [Moles/Vol] 15.9 mmol/L Normal [facility] Comment on above: Performed By: #### C MP, HSTROPN #### [facility] [address] [place] [address] Dr. Vito Grimm AST [Catalytic activity/Vol] 16 U/L Normal 15-37 [facility] Comment on above: Performed By: #### C MP, HSTROPN #### [facility] [address] [place] [address] Dr. Vito Grimm Bilirubin [Mass/Vol] 0.2 mg/dL Normal 0.2-1.0 [facility] Comment on above: Performed By: #### C MATHIEU, HSTROPN #### [facility] [address] [address] [address] Vito Grimm Calcium [Mass/Vol] 8.8 mg/dL Normal 8.5-10.1 [facility] Comment on above: Performed By: #### C MATHIEU, HSTROPN #### [facility] [address] [address] [address] Vito Grimm Chloride [Moles/Vol] 96 mmol/L Critically low 98-107 [facility] Comment on above: Performed By: #### C MATHIEU, HSTROPN #### [facility] [address] [place] [address] Dr. Vito Grimm CO2 [Moles/Vol] 24.1 mmol/L Normal 21.0-32.0 [facility] Comment on above: Performed By: #### C MATHIEU, HSTROPN #### [facility] [address] [place] [address] Dr. Vito Grimm Creatinine [Mass/Vol] 0.85 mg/dL Normal 0.55-1.02 [facility] Comment on above: Performed By: #### C MATHIEU, HSTROPN #### [facility] [address] [place] [address] Dr. Vito Grimm EGFR-AF EMIRATI >60 Normal >=60 [facility] Comment on above: Performed By: #### C MATHIEU, HSTROPN #### [facility] [address] [place] [address] Dr. Vito Grimm EGFR-NON AF EMIRATI >60 Normal >=60 [facility] Comment on above: Performed By: #### C MATHIEU, HSTROPN #### [facility] [address] [place] [address] Dr. Vito Grimm Globulin (S) [Mass/Vol] 3.6 g/dL Normal T [facility] Comment on above: Performed By: #### C MATHIEU, HSTROPN #### [facility] [address] [address] [address] Vito Grimm Glucose [Mass/Vol] 350 mg/dL Critically high 74-[address] [facility] Comment on above: Performed By: #### C MP, HSTROPN #### [facility] [address] [address] [address] Vito Grimm Potassium [Moles/Vol] 4.0 mmol/L Normal 3.5-5.1 [facility] Comment on above: Performed By: #### C MP, HSTROPN #### [facility] [address] [address] [address] Vito Grimm Protein [Mass/Vol] 7.1 g/dL Normal 6.4-8.2 [facility] Comment on above: Performed By: #### C MP, HSTROPN #### [facility] [address] [place] [address] Dr. Vito Grimm Sodium [Moles/Vol] 132 mmol/L Critically low 136-145 Th [facility] Comment on above: Performed By: #### C MP, HSTROPN #### [facility] [address] [address] [address] Vito Grimm Urea nitrogen [Mass/Vol] 10.0 mg/dL Normal 7.0-18.0 [facility] Comment on above: Performed By: #### C MP, HSTROPN #### [facility] [address] [place] [address] Dr. Vito Grimm Urea nitrogen/Creatinine [Mass ratio] 11.8 mg/mg Normal [facility] Comment on above: Performed By: #### C MP, HSTROPN #### [facility] [address] [place] [address] Dr. Vito Grimm TROPONIN, HIGH SENSITIVITYon 01-29-2023 HSTROP <4.0 Normal 4.0-51.3 [facility] Comment on above: Result Comment: CUT- OFF POINTS HAVE BEEN ESTABLISHED BASED ON THE FOURTH UNIVERSAL DEFINITIONS OF MYOCARDIAL INFARCTION. THE UPPER REFERENCE LIMIT (URL) OF TROPONIN, DEFINED THE 99TH PERCENTILE OF cTnI DISTRIBUTION IN A REFERENCE POPULATION, HAS BEEN CONFIRMED THE DECISION THRESHOLD FOR WI DIAGNOSIS. Performed By: #### C MP, HSTROPN #### [facility] [address] [place] [address] Dr. Vito Grimm HCG ( test) IAanil d Ql (U)Ordered By: Kyler Miramontes on 11-18-2022 HCG ( test) Ql (U) Negative [facility] CBC AUTO DIFFon 11-12-2022 BASO # 0.1 103/ul Normal 0.0-0.1 [facility] Comment on above: Performed By: #### C MP, HSTROPN #### [facility] [address] [place] [address] Dr. Vito Grimm Basophils/100 WBC (Bld) 0.6 % Normal 0.2-2.0 [facility] Comment on above: Performed By: #### C MP, HSTROPN #### [facility] [address] [place] [address] Dr. Vito Grimm EO # 0.2 103/ul Normal 0.0-0.7 [facility] Comment on above: Performed By: #### C MP, HSTROPN #### [facility] [address] [place] [address] Dr. Vito Grimm Eosinophils/100 WBC (Bld) 1.1 % Normal 0.9-7.0 [facility] Comment on above: Performed By: #### C MP, HSTROPN #### [facility] [address] [place] [address] Dr. Vito Grimm Erythrocyte distribution width (RBC) [Ratio] 12.6 % Normal 11.0-15.0 [facility] Comment on above: Performed By: #### C MP, HSTROPN #### [facility] [address] [place] [address] Dr. Vito Grimm Hematocrit (Bld) [Volume fraction] 39.7 % Normal 36.0-48.0 [facility] Comment on above: Performed By: #### C MP, HSTROPN #### [facility] [address] [place] [address] Dr. Vito Grimm Hemoglobin (Bld) [Mass/Vol] 12.9 g/dL Normal 12.0-16.0 [facility] Comment on above: Performed By: #### C MP, HSTROPN #### [facility] [address] [place] [address] Dr. Vito Grimm IG # 0.07 10e3/ul Critically high 0.00-0.03 [facility] Comment on above: Performed By: #### C MP, HSTROPN #### [facility] [address] [place] [address] Dr. Vito Grimm IG % 0.5 % Normal 0.0-0.5 [facility] Comment on above: Performed By: #### C MP, HSTROPN #### [facility] [address] [place] [address] Dr. Vito Grimm LYMPH # 5.3 103/ul Critically high 1.2-3.8 [facility] Comment on above: Performed By: #### C MP, HSTROPN #### [facility] [address] [place] [address] Dr. Vito Grimm Lymphocytes/100 WBC (Bld) 38.4 % Normal 20.5-60.0 [facility] Comment on above: Performed By: #### C MATHIEU, HSTROPN #### [facility] [address] [place] [address] Dr. Vito Grimm MANUAL DIFF REQ NO Normal [facility] Comment on above: Performed By: #### C MP, HSTROPN #### [facility] [address] [place] [address] Dr. Vito Grimm MCH (RBC) [Entitic mass] 29.7 pg Normal 26.7-34.0 [facility] Comment on above: Performed By: #### C MP, HSTROPN #### [facility] [address] [place] [address] Dr. Vito Grimm MCHC (RBC) [Mass/Vol] 32.5 g/dL Normal 29.9-35.2 [facility] Comment on above: Performed By: #### C MP, HSTROPN #### [facility] [address] [place] [address] Dr. Vito Grimm MCV (RBC) [Entitic vol] 91.5 fL Normal 81.0-99.0 [facility] Comment on above: Performed By: #### C MP, HSTROPN #### [facility] [address] [place] [address] Dr. Vito Grimm MONO # 1.0 103/ul Critically high 0.3-0.8 [facility] Comment on above: Performed By: #### C MP, HSTROPN #### [facility] [address] [place] [address] Dr. Vito Grimm Monocytes/100 WBC (Bld) 7.3 % Normal 1.7-12.0 [facility] Comment on above: Performed By: #### C MP, HSTROPN #### [facility] [address] [place] [address] Dr. Vito Grimm NEUT # 7.2 103/ul Critically high 1.4-6.5 [facility] Comment on above: Performed By: #### C MP, HSTROPN #### [facility] [address] [place] [address] Dr. Vito Grimm Neutrophils/100 WBC (Bld) 52.1 % Normal 43.0-75.0 [facility] Comment on above: Performed By: #### C MP, HSTROPN #### [facility] [address] [place] [address] Dr. Vito Grimm Platelet mean volume (Bld) [Entitic vol] 9.4 fL Critically low 9.5-13.5 [facility] Comment on above: Performed By: #### C MP, HSTROPN #### [facility] [address] [place] [address] Dr. Vito Grimm PLT 297 103/ul Normal 150-450 [facility] Comment on above: Performed By: #### C MP, HSTROPN #### [facility] [address] [place] [address] Dr. Vito Grimm RBC 4.34 106/ul Normal 4.20-5.40 [facility] Comment on above: Performed By: #### C MP, HSTROPN #### [facility] [address] [place] [address] Dr. Vito Grimm WBC 13.9 103/ul Critically high 4.0-11.0 [facility] Comment on above: Performed By: #### C MP, HSTROPN #### [facility] [address] [place] [address] Dr. Vito Grimm DEPAKENE/ VALPROIC ACIDon DEPAKENE 55.9 ug/ml Normal 50.0-100.0 [facility] Comment on above: Performed By: #### V ALP #### [facility] [address] [place] [address] Dr. Vito Grimm LACTATE/LACTIC ACIDon 2022 Lactate [Moles/Vol] 3.6 mmol/L Critically high 0.4-1.9 [facility] Comment on above: Performed By: #### C MP, HSTROPN #### [facility] [address] [place] [address] Dr. Vito Grimm PROF 14(COMP METB)on 023 Albumin [Mass/Vol] 3.6 g/dL Normal 3.4-5.0 [facility] Comment on above: Performed By: #### C MATHIEU, HSTROPN #### [facility] [address] [place] [address] Dr. Vito Grimm Albumin/Globulin [Mass ratio] 1.1 {ratio} Normal [facility] Comment on above: Performed By: #### C MP, HSTROPN #### [facility] [address] [place] [address] Dr. Vito Grimm ALP [Catalytic activity/Vol] 57 U/L Normal 46-116 [facility] Comment on above: Performed By: #### C MP, HSTROPN #### [facility] [address] [place] [address] Dr. Vito Grimm ALT [Catalytic activity/Vol] 23 U/L Normal 14-59 [facility] Comment on above: Performed By: #### C MATHIEU, HSTROPN #### [facility] [address] [address] [address] Vito Grimm Anion gap [Moles/Vol] 17.0 mmol/L Normal Th e [facility] Comment on above: Performed By: #### C MP, HSTROPN #### [facility] [address] [address] [address] Vito Grimm AST [Catalytic activity/Vol] 16 U/L Normal 15-37 [facility] Comment on above: Performed By: #### C MATHIEU, HSTROPN #### [facility] [address] [address] [address] Vito Grimm Bilirubin [Mass/Vol] 0.1 mg/dL Critically low 0.2-1.0 [facility] Comment on above: Performed By: #### C MATHIEU, HSTROPN #### [facility] [address] [place] [address] Dr. Vito Grimm Calcium [Mass/Vol] 8.8 mg/dL Normal 8.5-10.1 [facility] Comment on above: Performed By: #### C MATHIEU, HSTROPN #### [facility] [address] [place] [address] Dr. Vito Grimm Chloride [Moles/Vol] 101 mmol/L Normal 98-107 [facility] Comment on above: Performed By: #### C MP, HSTROPN #### [facility] [address] [place] [address] Dr. Vito Grimm CO2 [Moles/Vol] 23.5 mmol/L Normal 21.0-32.0 [facility] Comment on above: Performed By: #### C MP, HSTROPN #### [facility] [address] [place] [address] Dr. Vito Grimm Creatinine [Mass/Vol] 0.72 mg/dL Normal 0.55-1.02 [facility] Comment on above: Performed By: #### C MP, HSTROPN #### [facility] [address] [address] [address] Vito Grimm EGFR-AF EMIRATI >60 Normal >=60 [facility] Comment on above: Performed By: #### C MATHIEU, HSTROPN #### [facility] [address] [address] [address] Vito Grimm EGFR-NON AF EMIRATI >60 Normal >=60 [facility] Comment on above: Performed By: #### C MATHIEU, HSTROPN #### [facility] [address] [address] [address] Vito Grimm Globulin (S) [Mass/Vol] 3.4 g/dL Normal [facility] Comment on above: Performed By: #### C MATHIEU, HSTROPN #### [facility] [address] [place] [address] Dr. Vito Grimm Glucose [Mass/Vol] 146 mg/dL Critically high 74-106 [facility] Comment on above: Performed By: #### C MATHIEU, HSTROPN #### [facility] [address] [place] [address] Dr. Vito Grimm Potassium [Moles/Vol] 4.5 mmol/L Normal 3.5-5.1 [facility] Comment on above: Performed By: #### C MATHIEU, HSTROPN #### [facility] [address] [place] [address] Dr. Vito Grimm Protein [Mass/Vol] 7.0 g/dL Normal 6.4-8.2 [facility] Comment on above: Performed By: #### C MATHIEU, HSTROPN #### [facility] [address] [place] [address] Dr. Vito Grimm Sodium [Moles/Vol] 137 mmol/L Normal 136-145 [facility] Comment on above: Performed By: #### C MATHIEU, HSTROPN #### [facility] [address] [place] [address] Dr. Vito Grimm Urea nitrogen [Mass/Vol] 11.0 mg/dL Normal 7.0-18.0 [facility] Comment on above: Performed By: #### C MATHIEU, HSTROPN #### [facility] [address] [address] [address] Vito Grimm Urea nitrogen/Creatinine [Mass ratio] 15.3 mg/mg Normal [facility] Comment on above: Performed By: #### C MP, HSTROPN #### [facility] [address] [address] [address] Vito Grimm Albumin [Mass/volume] in Ser um or PlasmaOrdered By: Ajit Pettit on 11-05-2022 Albumin [Mass/Vol] 4.2 g/dL 3.2-5.5 [facility] Basophils Auto (Bld) [#/Vol] Ordered By: Ajit Pettit on 11-05-2022 Basophils (Bld) [#/Vol] 0.1 10*3/uL 0.0-0.2 [facility] Basophils/100 WBC Auto (Bld) Ordered By: Ajit Pettit on 11-05-2022 Basophils/100 WBC (Bld) 0.8 % . [facility] Cholesterol [Mass/volume] in Serum or PlasmaOrdered By: Ajit Pettit on 11-05-2022 Cholesterol [Mass/Vol] 174 mg/dL 140-200 [facility] Comment on above: Chol less than 200 m g/dl low riskChol 201-239 mg/dl borderline riskChol 240 mg/dl and greater high risk Cholesterol in LDL Calc [Mas s/Vol]Ordered By: Ajit Pettit on 11-05-2022 Cholesterol in LDL [Mass/Vol] 66 mg/dL 0-100 [facility] Comment on above: LDL ATP III CLASSIFI CATIONLDL less than 100 mg/dL OptimalLDL 100-129 mg/dL Near or above optimalLDL 130-159 mg/dL Borderline highLDL 160-189 mg/dL HighLDL greater than 189 mg/dL Very high Cholesterol in VLDL Calc [Ma ss/Vol]Ordered By: Ajit Pettit on 11-05-2022 Cholesterol in VLDL [Mass/Vol] 66 mg/dL [facility] Creatinine and Glomerular fi ltration rate.predicted panel (S/P/Bld)Ordered By: Ajit Pettit on 02-02-2023 Creatinine [Mass/Vol] 0.57 mg/dL 0.44-1.03 [facility] Eosinophils Auto (Bld) [#/Vo l]Ordered By: Ajit Pettit on 11-05-2022 Eosinophils (Bld) [#/Vol] 0.1 10*3/uL 0.0-0.45 [facility] Eosinophils/100 WBC Auto (Bl d)Ordered By: Ajit Pettit on 11-05-2022 Eosinophils/100 WBC (Bld) 0.7 % . [facility] Erythrocyte distribution wid th Auto (RBC) [Ratio]Ordered By: Ajit Pettit on 11-05-2022 Erythrocyte distribution width (RBC) [Ratio] 13.5 % 11.9-15.3 [facility] Estimated glomerular filtrat ion rate (GFR) non- AmericanOrdered By: Ajit Pettit on 11-05-2022 GFR/1.73 sq M.predicted among non-blacks MDRD (S/P/Bld) [Vol rate/Area] > 60 mL/Min [facility] Globulin Calc (S) [Mass/Vol] Ordered By: Ajit Pettit on 11-05-2022 Globulin (S) [Mass/Vol] 2.6 g/dL F [facility] Glucose mean value [Mass/vol ume] in Blood Estimated from glycated hemoglobinOrdered By: Ajit Pettit on 11-05-2022 Average glucose Estimated from glycated hemoglobin (Bld) [Mass/Vol] 143 mg/dL [facility] HPV 16+18+31+33+35+39+45+51+ 52+56+58+59+68 DNA cervix probe + signal amplificOrdered By: Ajit Pettit on 11-05-2022 HPV 16+18+31+33+35+39+45+51 +52+56+58+59+68 DNA Probe+sig amp Ql (Cvx) Positive Negative [facility] Comment on above: This nucleic acid am plification test detects fourteen high-risk HPV types (16,18,31,33,35,39,45,51,52,56,58,59,66,68)without differentiation. Hematocrit Auto (Bld) [Volum e fraction]Ordered By: Ajit Pettit on 11-05-2022 Hematocrit (Bld) [Volume fraction] 40.1 % 34.0-46.4 [facility] Hemoglobin A1c percentageOrd ered By: Ajit Pettit on 11-05-2022 HbA1c (Bld) [Mass fraction] 6.6 % 4.3-5.6 [facility] Comment on above: Increased risk for d iabetes: 5.7 - 6.4diabetes: >6.4glycemic control for adults with diabetes: <7.0 Hemoglobin [Mass/volume] in BloodOrdered By: Ajit Pettit on 11-05-2022 Hemoglobin (Bld) [Mass/Vol] 13.2 g/dL 11.8-15.4 [facility] - Microbiology an d Antimicrobial susceptibilityOrdered By: Ajit Pettit on 11-05-2022 N. gonorrhoeae DNA NAYELY+probe Ql (Unsp spec) Negative Negative [facility] Comment on above: Performed at: [address] [id number] Director: Breanna Clark MD, Phone: [phone] Leukocytes [#/volume] correc cherie for nucleated erythrocytes in Blood by Automated counOrdered By: Ajit ePttit on 11-05-2022 WBC corrected for nucl RBC Auto (Bld) [#/Vol] 13.7 10*3/uL 3.8-11.6 [facility] Lymphocytes Auto (Bld) [#/Vo l]Ordered By: Ajit Pettit on 11-05-2022 Lymphocytes (Bld) [#/Vol] 5.1 10*3/uL 1.00-4.8 [facility] Lymphocytes/100 WBC Auto (Bl d)Ordered By: Ajit Pettit on 11-05-2022 Lymphocytes/100 WBC (Bld) 37.3 % . [facility] MCH Auto (RBC) [Entitic mass ]Ordered By: Ajit Pettit on 11-05-2022 MCH (RBC) [Entitic mass] 29.5 pg 24.7-34.3 [facility] MCHC Auto (RBC) [Mass/Vol]Or dered By: Ajit Pettit on 11-05-2022 MCHC (RBC) [Mass/Vol] 32.8 g/dL 32.0-35.0 [facility] MCV Auto (RBC) [Entitic vol] Ordered By: Ajit Pettit on 11-05-2022 MCV (RBC) [Entitic vol] 90.0 fL 80-100 F [facility] Microcytes LM Ql (Bld)Ordere d By: Ajit Pettit on 11-05-2022 Microcytes Ql (Bld) Slight [facility] Monocytes Auto (Bld) [#/Vol] Ordered By: Ajit Pettit on 11-05-2022 Monocytes (Bld) [#/Vol] 1.1 10*3/uL 0.0-0.8 [facility] Monocytes/100 WBC Auto (Bld) Ordered By: Ajit Pettit on 11-05-2022 Monocytes/100 WBC (Bld) 8.3 % . [facility] Neutrophils Auto (Bld) [#/Vo l]Ordered By: Ajit Pettit on 11-05-2022 Neutrophils (Bld) [#/Vol] 7.3 10*3/uL 1.8-7.7 [facility] Neutrophils/100 WBC Auto (Bl d)Ordered By: Ajit Pettit on 11-05-2022 Neutrophils/100 WBC (Bld) 52.9 % . [facility] No Panel InformationOrdered By: Ajit Pettit on 11-05-2022 25-Hydroxy Vitamin D Total 28.8 ng/mL 30-100 [facility] Comment on above: VITAMIN D STATUS 25( OH)VITAMIN D RANGE (ng/mL) Deficient <20 Insufficient 20 to <30Sufficient 30 to 100Reference: Jovanni MF,Dominique NC, Nikos-Bud NINA, et al. Evaluation,treatment, and prevention of vitamin D deficiency; an Endocrine Society clinical practice guideline. JCEM. 2010; 96(7):1911-30. Luz Elena albicans (NAYELY) Negative Negative [facility] Comment on above: This test was develo ped and its performance characteristicsdetermined by [facility]. It has not been cleared orapproved by the Food and Drug Administration. Luz Elena glabrata (NAYELY) Negative Negative [facility] Comment on above: This test was develo ped and its performance characteristicsdetermined by [facility]. It has not been cleared orapproved by the Food and Drug Administration. Chlamydia trachomatis (NAYELY) (LAB) Negative Negative [facility] Estimated GFR () > 60 mL/Min [facility] Comment on above: GFR estimated refere nce range: According to KDOQI guidelines, <60 ml/min/1.73m2 is sufficient to diagnose a patient with chronic kidney disease. Human Papilloma Virus Type 16 Negative Negative [facility] Human Papilloma Virus Type 18/45 Negative Negative [facility] Comment on above: Performed at: =G - [facility] [address] [id number] Director: Breanna Clark MD, Phone: [phone] at: WB - [facility] [id number] Director: Breanna Clark MD, Phone: [phone] IG Pap w/Ct-Ng Age Based (Off-Site) Note . [facility] Comment on above: TESTS RESULT FLAG UN ITS REF RANGE LAB - Clinician Provided Cytology Information No. of containers..01 ThinPrep VialAge Lissetho LEA Monisha... 30-65 FLAG LEGEND: L-Low Normal,H-High Normal,LL-Alert Low,HH-Alert High <-Panic Low,>-Panic High,A-Abnormal,AA-Critical Abnormal ------Performed at:01 =G [facility] [address] [place] [address] Breanna Clark MD, Pharmacy Creatinine Clearance (Chem N/A [facility] Thin Prep Pap Comment Note . [facility] Comment on above: TESTS RESULT FLAG UN ITS REF RANGE LAB -DIAGNOSIS: 02 NEGATIVE FOR INTRAEPITHELIAL LESION OR MALIGNANCY. THIS SPECIMEN WAS RESCREENED PART OF OUR CLIN ASST PROGRAM.Specimen adequacy: 02 Satisfactory for evaluation. Endocervical and/or squamous metaplastic cells (endocervical component) are present.Performed by: 02 Larry Mirza, Facilities Supervisor ([facility])QC reviewed by: Charla Thomason, Supervisory Facilities Supervisor ([facility]). 02Note: Note 02 The Pap smear [...] Low,>-Panic High,A-Abnormal,AA-Critical Abnormal ------Performed at:02 WB [facility] [address] [place] [address] Breanna Clark MD, Trichomonas vaginalis (NAYELY) Negative Negative [facility] Nucleated erythrocytes [Pres ence] in Blood by Automated countOrdered By: Ajit Pettit on 11-05-2022 Nucleated RBC Auto Ql (Bld) 0.1 /100{WBC} 0-0.5 [facility] Platelet adequacy [Presence] in Blood by Light microscopyOrdered By: Ajit Pettit on 11-05-2022 Platelets LM Ql (Bld) Normal Normal [facility] [facility] Platelet mean volume Auto (B ld) [Entitic vol]Ordered By: Ajit Pettit on 11-05-2022 Platelet mean volume (Bld) [Entitic vol] 9.1 fL 6.3-10.7 [facility] Platelet morphology finding [Identifier] in BloodOrdered By: Ajit Pettit on 11-05-2022 Platelet morphology finding Nom (Bld) N/A [facility] Platelets Auto (Bld) [#/Vol] Ordered By: Ajit Pettit on 11-05-2022 Platelets (Bld) [#/Vol] 304 10*3/uL 150-450 [facility] Platelets Large [Presence] i n Blood by Light microscopyOrdered By: Ajit Pettit on 11-05-2022 Platelets Large LM Ql (Bld) Slight [facility] Polychromasia [Presence] in Blood by Light microscopyOrdered By: Ajit Pettit on 11-05-2022 Polychromasia LM Ql (Bld) Slight [facility] Protein [Mass/volume] in Ser um or PlasmaOrdered By: Ajit Pettit on 11-05-2022 Protein [Mass/Vol] 6.8 g/dL 6.1-7.9 [facility] RBC Auto (Bld) [#/Vol]Ordere d By: Ajit Pettit on 11-05-2022 RBC (Bld) [#/Vol] 4.46 10*6/uL 3.60-5.[address] [facility] RBC morphologyOrdered By: Shelbi Pettit on 11-05-2022 RBC morphology finding Nom (Bld) N/A [facility] Serum or plasma alanine george otransferase measurement without P-5'-P (enzymatic activiOrdered By: Ajit Pettit on 11-05-2022 ALT No additional P-5'-P [Catalytic activity/Vol] 16 U/L 10-60 [facility] Serum or plasma albumin/glob ulin mass ratioOrdered By: Ajit Pettit on 11-05-2022 Albumin/Globulin [Mass ratio] 1.6 {ratio} [facility] Serum or plasma alkaline lalo sphatase measurement (enzymatic activity/volume)Ordered By: Ajit Pettit on 11-05-2022 ALP [Catalytic activity/Vol] 52 U/L 32-92 [facility] Serum or plasma anion gap de terminationOrdered By: Ajit Pettit on 11-05-2022 Anion gap [Moles/Vol] 14.2 mmol/L 6.0-15.0 [facility] Serum or plasma aspartate am inotransferase measurement (enzymatic activity/volume)Ordered By: Ajit Pettit on 11-05-2022 AST [Catalytic activity/Vol] 20 U/L 10-42 [facility] Serum or plasma calcium ashwini urement (mass/volume)Ordered By: Ajit Pettit on 11-05-2022 Calcium [Mass/Vol] 9.3 mg/dL 8.2-10.2 [facility] Serum or plasma chloride jett surement (moles/volume)Ordered By: Ajit Pettit on 11-05-2022 Chloride [Moles/Vol] 99 mmol/L 95-114 [facility] Serum or plasma glucose ashwini urement (mass/volume)Ordered By: Ajit Pettit on 11-05-2022 Glucose [Mass/Vol] 96 mg/dL 70-100 [facility] Comment on above: ADA recommended refe rence rangeRandom Glucose Reference Range is dependent on time and content of last meal. Glucose of more than 200 mg/dL in a nonstressed, ambulatory subject supports the diagnosis of Diabetes Mellitus. Serum or plasma high density lipoprotein (HDL) cholesterol measurementOrdered By: Ajit Pettit on 11-05-2022 Cholesterol in HDL [Mass/Vol] 42 mg/dL 35-85 [facility] Comment on above: HDL CHOL ATP-III CLA SSIFICATION Cardiovascular RiskHDL > or equal to 60 mg/dL LOWHDL < 40 mg/dL HIGH Serum or plasma potassium me asurement (moles/volume)Ordered By: Ajit Pettit on 11-05-2022 Potassium [Moles/Vol] 4.3 mmol/L 3.5-5.1 [facility] Serum or plasma sodium measu rement (moles/volume)Ordered By: Ajit Pettit on 11-05-2022 Sodium [Moles/Vol] 132 mmol/L 136-146 [facility] Serum or plasma total biliru bin measurement (mass/volume)Ordered By: Ajit Pettit on 11-05-2022 Bilirubin [Mass/Vol] 0.3 mg/dL 0.3-1.2 [facility] Serum or plasma total carbon dioxide measurement (moles/volume)Ordered By: Ajit Pettit on 11-05-2022 CO2 [Moles/Vol] 23.1 mmol/L 22.0-30.0 [facility] Serum or plasma total choles terol/high density lipoprotein (HDL) cholesterol mass ratOrdered By: Ajit Pettit on 11-05-2022 Cholesterol.total/Suellen sterol in HDL [Mass ratio] 4.1 {ratio} <5.0 [facility] Serum or plasma urea nitroge n measurement (mass/volume)Ordered By: Ajit Pettit on 11-05-2022 Urea nitrogen [Mass/Vol] 7 mg/dL 9- [facility] TSH DL <= 0.005 mIU/L QnOrde red By: Ajit Pettit on 11-05-2022 TSH Qn 4.07 m[IU]/L 0.45-5.33 [facility] Triglyceride [Mass/volume] i n Serum or PlasmaOrdered By: Ajit Pettit on 11-05-2022 Triglyceride [Mass/Vol] 330 mg/dL 35-149 [facility] Comment on above: TRIG ATP III CLASSIF ICATIONTRIG less than 150 mg/dL NormalTRIG 150-199 mg/dL Borderline highTRIG 200-500 mg/dL High TRIG greater than 500 mg/dL Very highStandard traceable to the Center for Disease Conrtrol and Prevention (CDC) test method. Urine culture routineOrdered By: Ajit Pettit on 11-05-2022 Bacteria identified Cx Nom (U) No Growth 2 Days [facility] Vaginal fluid Atopobium vagi rich DNA detection by probe and target amplification methoOrdered By: Ajit Pettit on 11-05-2022 A. vaginae DNA NAYELY+probe Ql (Vag fld) Low - 0 Score . [facility] Vaginal fluid Megasphaera sp ecies type 1 DNA detection by probe and target amplificatOrdered By: Ajit Pettit on 11-05-2022 Megasphaera sp type 1 DNA NAYELY+probe Ql (Vag fld) Low - 0 Score . [facility] Comment on above: Calculate total scor e by adding the 3 individual bacterialvaginosis (BV) marker scores together. Total score isinterpreted as follows:Total score 0-1: Indicates the absence of BV.Total score 2: Indeterminate for BV. Additional clinical data should be evaluated to establish a diagnosis.Total score 3-6: Indicates the presence of BV.This test was developed and its performance characteristicsdetermined by [employer]. It has not been cleared or approvedby the Food and Drug Administration. Vaginal fluid bacterial vagi nosis associated bacterium 2 DNA detection by probe and tOrdered By: Ajit Pettit on 11-05-2022 Bacterial vaginosis associated bacterium 2 DNA NAYELY+probe Ql (Vag fld) Low - 0 Score . [facility] WBC Auto (Bld) [#/Vol]Ordere d By: Ajit Pettit on 11-05-2022 WBC (Bld) [#/Vol] 13.7 10*3/uL 3.8-11.[address] [facility] Ambulatory Visit Summaryon 0 11-02-2022 Ambulatory Visit Summary RACHEL MCGARRY :1980 Visit Date:11/02/2022 Ambulatory Visit Instructions Your Diagnosis Urgency of urination Urethral stricture Feeling of incomplete bladder emptying Tests Performed Urnls Dip Stick Auto w/o Microscopy POC 48296 Your Care Team Attending Physician - Joshua [...] Appointments Wednesday. 2022 10:45 AM EDT With: Joshua PRESTON MD Where: [facility] Patient Educationon 11-02-19 23 Patient Education Urology [...] keep your urine pale yellow. ? Take iddh-tno-flnzwgz or prescription medicines. ? Eat foods that are high in fiber, such as beans, whole grains, and fresh fruits and vegetables. ? Limit foods that are high in fat and processed sugars, such as fried or sweet foods. General instructions ? Take mdwd-aeb-tcspldy and prescription medicines only as told by [...] muscles that help control urination. ? Take djev-auw-tdohlxp and prescription medicines only as told by [...] 07/17/2010 Document Revised: 03/30/2019 Document Reviewed: 03/30/2019 [employer] Patient Education ? 2019 [employer]. Luisito Woods [facility] Urology Office/Clinic Noteon 11-02-2022 Urology Office/Clinic Note Chief Complaint Urinary problmes HPI Staff This is a 42 year old female here due to having problems with urination. Previous DX: feeling of incomplete bladder emptying, frequency and urgency. S/P Cysto done 08/24/22. Pt. states she has seen a STEEL BURNER since last visit and she has cyst [...] Information JORDANA BALDERAS, Joshua Dempsey, URL [address] [place], [place] [id number]- Business (1) Additional Instructions: 6 month follow [...] oral t (more content not included)... [facility] Comment on above: Result Comment: Elec tronically Signed By: Joshua PRESTON MD\.br\Date and Time Signed: 11/02/22 11:43 EST\.br\Electronically Co-Signed By: Bailey Pacheco\.br\Date and Time Co-Signed: 11/02/22 11:30 EST Provider Letteron 09-29-2022 Provider Letter (Inserted Image. Bre ble to display) September 29, 2022 RACHEL MCGARRY [address] [address] [place] [address] RACHEL MCGARRY 1980 Dear Rachel, You missed [...] do appreciate your understanding. Sincerely, [facility] [place] [address] [facility] Coding Summary.on 08-26-2022 Coding Summary. CD:[id number] Gh0bWw+ PGhlYWQ+IM8SXULuR42onFBmpX3 ZT8bRFN4UTGEXEISPUN5BHX0smU G2NGrnQ1NpirZg LauglFRqTY21IUp4OAW8uAkqEWx nxL3lbJRiT8z4WuOuKI72pY86CY lxPRLjNrB0PnQodzjtbTXy R1nuEeSyyGKeAup+PHRhYmxlIHd eFBQzODaaZOPhOhEdwKxnWY0jDc 9yZGVyLWNvbGxhcHNlOiBj j5xmYQCnJObuHP1pySrgE9YtdRQ 2FCXpn3a3La44vAI+GZZbTXN0rL kwWAyqt677SvQzf2gjOTV0 sPKhXPqjWDQ0E88xp8H8KOSlQQQ aJBC8dTR6xZ0oqGtlbtbmD4NywO BcXnT0GEH6jPDwhN8awKlh ltpycM6fBjs+J57KKD4IASKAZF3 MMur4K7HfHcuoeOB+BT96IPZjFH 54gNWunXPwo9uvmIl3QuSi QZMyIUG2kGpeQPgkg7YqKFVhZ77 eiUAai6F2QLNgvFzfnAWhEyXhaY M0tM4tIFnpljjnc6vmakzk Ugkaz6rmmn56gS61I97aPTjiJXD yNAL1EKKfVSBgeQaopc0abN3rQo 8+SVuef2eza2cdbXy2OiRi CSKqoeQlrDfgCWT6k3DpEo20I1R ccVrhu6QrEhq7pr92pFYvg6T1uV Q4TFxgLBRstL5kVCbjOuT5 WGTsHfSjdR87yKRpHBeqNm4fuTf isGajGO5tDAZuvybiENDwsB4iUA LrkCSshQrtTM8mSJIudvji e803PcXjGBE0UDJlcVStF5CppT9 qHjOeOPNpMKInF7EjvKWhZDilI8 47JEwaQdJ4FUNdicCpU3Ha PIKnnFtcFrJ9p8J4Wv7Vj8Ojehs aNRU8BNxiRRQfGzKsJlMiXkH3M1 DeVwk6UYDybEndLW8gI8Xk IXOvjijfgpmjzLG7SXAjVWCerH5 5uRDqABaqWq9nq9N6c734FUKiZT OsiX76Bk2ifWgqJSOuaCYA pG2kumhqd8ompaylZmSmRKXeVJc 5SPq1IAYoeLpbQqDdBSD5PiJ0FI L4rKZeuP8ttUnhvcblnG4a Oyc+K13efP1jVKS3XMA6sanmJUG godExSS97DX36F2YsWkqheDOlpY U+NFPhswLzfRffRP9bKoJe x4xab7DiMDlwZ7KbMUMiBZfgQyk 4WKSjPPA0vQJ2pB4zDRXnTYvsy3 K0pBP2D1WevuExvl5ux4zl VTYgHAogC66wqBLkv2J5RSRhbEO 4WQCqnUbbHkBprG28Chw+PGNvbG xky5MmOdvgj3uib6iqqGp1 RhTfJCSaauLljZnmMAS5p5EbWc9 3F10vKIcsBMJbBITjXBGaCNYynR usrg1thL5lSk6+PGNvbCB3 eCC1oZ8vFJRqNcC1UKihP376LwX iaSSbQfugs8sbj6xjvZt9AoOkIO SaldMczHtdVPQ0l7VlGc52 E37cBNifRGCiCGLnGXYrHPFxaFm yrw6wqN6gTy5+MZ4bk5hqrm66yB 48dHI+AMReZKU5cVwxGHnu PSLfhI8uZSfvSrC8GPEeUwFuaA6 2vFNlMVlfLv0woBrbbKzrES9nBI Ytchyzt033EcPyy0fnYLEj wKCjOQmdRNK6S24lv1K3UUUgSOM aXMC0eXB5pR6fuFqztxbiyYCzlA dgljVhnJevKIviYQzoF893 IHRvcDsnPlBhdGllbnQgTmFtZTo 8W6KiKfw2VMTbaMicDC4naHVvXO rbCp2zmWmnxYfiWO2cLXTt sfhyc803ApMlc1yvVEFryBJqZPm hCPB8P54bl6E1TBWjOEFpLUG0hW T2yS3iqZacbkezfYZfoAiv bvHvxNilAAteDAlgY128MTJosWo wZaQjsfFoGYEfxAZ1KE28GD52iH Bws2X4uOX0X9ArQFPxfuyr lkuqbEY0ZHIqIFMutH80Fu4xeYt wRh3fKIXjDFL5TIYpmXSqF6QthJ 9dJtVvGPGpIUQfP8ItbOPl XSqqU844DFquSiS2YDSyybJfK6T zTMOxnBrwRtQ2y0E4Th6VW7U8ER 59ZG69qJRcn9R6sAO9F2Kn QNSckrsuwnmyqWQ2ASYfKIRdoJ4 8Yx0nlTugPc8nWXWgYEA3JGBrnB OtL4KpuM5cMlXeOAHpSGFx D5KjkBOzPMyvQ833CPtbPqD3CIG lsdVqD5CfFWOpmUhfHtF8p8K5Wx 2NCMk6XN27KV63aJOti0B7 iHZ2T7KgAXNzoimteqrsnGK3EMC oQIKoxQ96Zp5uiHloMw2kDOGjNU B7AKLvwWLnB0WwgO9fMcDa HMIiCIWgR7HujMSzLUkjW188CPk fHeD8LYNduhStV9DiNJYgxFboWo F1d6Z7Zh0IHXGjGU19WTC2 qMN7FI60IU91P0FgBcnafAGkwHN +PHRhYmxlIHdpZHRoPScxMDAlJy OcuNzfUV4oIz8gCRGcVUXi lKeoyUWuWyXwm5acAYSgOHqhLR9 aoWbsR5BowJK6SHOet2n3Tu63A0 4qZ9AziQC+XEBprES2uIS8 nG6vIoIpWvJ7UFncQ563XsLarMS eEoydm2epx8ilxIt4KnM7CYMabu NmsYsvZET2b5IrWb77W61b IHdpZHRoPSIxNSUiIHZhbGlnbj0 okV4oZj6+GVVbsBU7cHH2qM1aIc RvCkF2VNhmC612WoAuvKGw Efvys8ojv8kkmXk9QlNbGHJexeZ kpJinWDL0p0EuJa89O2JeaNbom7 ZwLbl8zc19pSJns0C6vJA8 O3MaPTIlexlgdKJvqNyxRH1rWYG vrsioPZSzeR6xLXIaP2c0HxHgCg L4UDmrJ0CxplN0EGEgfIId XWfaBOS5L41ye6V6XGVdJECsDWQ 7nOO6qH5tbIdsqdxztVUmcQmpzu ZxlNklNJaoJEjoK500JELy uRkzEFXmrA3aSLWckNFenJucBJ1 gCGLyfokvMm8UHJNZQGVKFH6QHI WFCR74IY12tPXsi2U4oIY2 A7GaQXQjcqdmzqfvpYS4AIBrOYC zwY37mKKfYThnBd1sx4H5x253XM QqIVNiaO34Wg8odAtuUOLp sKOJqZ2paicxi8kbgoyoUbSfBGU dEEc7ERx7EHMzbVfaKhOtMRC3Sc Q5LMA0hNWoaN0fvGbzbqfr vE0yItj+ORJyZWSbMFl9MKegpGI +YXAvJBS0oSwiKYguWSGhiX3gGP CoO8d2EfNhVnO5ZQixC1Lj HACkospqKo10sY7uQkShKvF9ZLb bQ3CpvmR2GCYseMYgPHdiXBN5G3 3zv7V6TLGwGSZgKNP7yYA8 sM0bxUmzfojghNPzqLmoipCpqPx hAKxrIPxmL635WYUjtNpeTiYuJW sgCPAlWD54HA91cCOat1W8 lMN4V1GsXNYyzymdhlorbPL1RUZ uQOGatD22rSBzIGwoCz1kl4K0t8 56INUpGWPloU88Rs8quOpp PUWxgSEFrT2ortcpi7fyfkxbYhF mHDTwVGx5TFj0DNOusDeaWcBzIG Z3QxG6QHN4gNQyvX4tmOxk qzgxxB7wDxr+HhIfXIlzXI97FE3 6xLAbg2H0hZN5O6LiJITfekukxk qjuGK4YEOlTDWhbR51aLGg UUjcOt8sc1J6k159IOPmPXFbuI8 0Rz3mlRczNCUcxWYVgT6btgmxr1 wnlwqbIqJlDEFcJXx1OMf8 KHVwpOhjIoDjVTM5WhG6POL7xAX ktH4yqVncpfmjzA1hVui+T3V0cG P6pBHfjCeoqAP+IK60uw57 D8GoNobbMpx2SMNnTEC9fGR9rU3 gTQQiOIvpx4K5bLK9F4XoibUvsq 5ih2pwXBKkSJckJ81jfUIf z3H7JITsaSQ9EIUlzRrqXtTrwX5 3Oyc+MIUaqIzbu7WnQbgew7ugd0 pocBy4CaDqGJHxlqDmvRqp SNJ4t0SaRn46T08hNZuhCCCwSZU mTSPbQXTcvSyhrb4kcO4rBc8+PG AgsYM1qFV8sS1hLzEzYrA0 ZZlmT873CjXirIMeEaqtb1llw0m gyEq0IvOzZHZlmnVrhLwzUII0l5 RjAf86Q7CsqOpbo4ZqSjz6 yj52iENkh7A8pJW7W3TzQHJnzet kcZJfnUmeQW4cYYMlgnewKNAeiA 7qFDFdM8e5CzMbSbC9DSeo N6AakjQ3NKTngUVnXMMyvAPTsQ8 blngxs1ghdbjnMmDuMSOeOLs1YM a4VUGkcCnqJtWwTJL1PeP6 DRL9mDSjdG8imXojhyvbgI8lGkg +CZa7t9vvcWOxVN1dqYI4EX31ZM 50wAJay5I5oSL2M5RfCZWu jqbhpbhfdGT2HEPvGTLwtD78Nv1 jnWnyVq2pAZByAOR4PGXscRUeZ2 OprD4kExScDAMiXBJeB0Hz qEKbAFkvB353BJiwVmL7ELYlijC qX1RmOITlbXzgKkE7g4D2Is0WRF 36JA18XW30eLOup8V6sBZ2 V4VmJSWxjumqbpavxVQ5AWZaHIC reI38Wv4gdTlqDq7qLKYwFZI0RB DrhASbT3UpbI6yRiWlVNHw BLQnZ9IpyEYlHMmeR469ZSytZvG 3ADNeivBqL0ScGQWluAtzLuT0n0 F5Ck7ACl58AG59WU15rTOp m1I0hLN6Q8XyYFBhfuewvvibtON 2IDHlDZBuaQ94An1bsQpkAc2xJG QjHFF6HFZerZFdZ0RgoN2q GdTyUKCnCTUeX2GmdDAeSKpcB33 8JZvlDsH6OBNkdnQlW4OkQHVsqB ujHpV9z1Z2Tl4RZKemdfa5 Y7SqJetjrZS+XZ77PNDlAG81fFS jlOEig1pmzPr2JwXzJNPiKRF3yO ixXTwzx2CfYUBnG12ibKFb c2U6 (more content not included)... [facility] IntraOperative Documentson 1 10-25-2021 IntraOperative Documents [id number]#1.00CD:127 [facility] Consent for Procedure/Surger yon 08-24-2022 Consent for Procedure/Surgery [id number]#[id number]:127 [facility] Consent for Treatmenton 08-05 Consent for Treatment [id number]#1.00CD:127 [facility] Inpatient Patient Summaryon 08-24-2022 Inpatient Patient Summary [place] [id number] Clinical Summary Person Information Name: RACHEL MCGARRY Age: 42 Years : 1980 Sex: Female PCP: AJIT PETTIT CNP Marital Status: Race: White Ethnicity: Non- or Language: Occitan Visit Id: Visit Reason: FEELING OF INCOMPLETE BLADDER EMPTY URINARY FREQUENCY Speciality: Acuity: Enc Type: Outpatient Med Service: Surgery Arrival: 08/24/2022 13:16:48 Discharge: Dispo Type: Address: [address] [place] [address] [address] [facility] [id number] Provider Notes: Diagnosis: Problems Active Urgency of [...] Follow up: With: Address: When: Joshua PRESTON [address] [place] [address], [address], [address] [address] Business (1) Within 6 weeks Comments: Call for followup appointment. Monitor the urinary low after the dilation today. Have a great Thanksgiving. Patient Education Information: EU - Cystoscopy with Urethral Dilation Discharge Instructions (Custom) [facility] IntraOperative Documentson 1 10-24-2021 IntraOperative Documents [id number]#[id number]:127 [facility] IntraOperative Documents [id number]#[id number]:127 [facility] Main OR Intraoperative Recor don 08-24-2022 Main OR Intraoperative Record IntraOp Document Type FTURO Summary Primary Physician: Joshua PRESTON MD Finalized Date/Time: 08/24/22 15:52:21 Pt. Name: RACHEL MCGARRY/Sex: 1980 Female Med Rec #: [id number] Physician: Joshua PRESTON MD Financial #: [id number] Pt. Type: O Room/Bed: / Admit/Disch: 08/24/22 13:16:48 - Institution: Case Times FTURO Entry 1 Patient Times In Room 08/24/22 15:42:00 Out Room 08/24/22 15:52:00 Procedure Times Start 08/24/22 15:45:00 Stop 08/24/22 15:48:00 Anesthesia Times Last Modified By: Kathy Lund RN 08/24/22 15:52:14 Case Attendance FTURO Entry 1 Entry 2 Entry 3 Case Attendee Joshua PRESTON MD ROUNDING MACHINE OPERATOR, Kathy Long RN Role Performed Surgeon - Primary Scrub - Primary Landscape Drafter - Primary Time In 08/24/22 15:42:00 08/24/22 [...] By: Kathy Lund RN 08/24/22 15:52 [facility] Main OR Preoperative Recordo n 08-24-2022 Main OR Preoperative Record Holding Area Document Type FTURO Summary Primary Physician: Joshua PRESTON MD Finalized Date/Time: 08/24/22 14:57:36 Pt. Name: RACHEL MCGARRY/Sex: 1980 Female Med Rec #: [id number] Physician: Joshua PRESTON MD Financial #: [id number] Pt. Type: O Room/Bed: / Admit/Disch: 08/24/22 [...] No Pain Comment: na Skin Integrity Intact, [place], Warm, & Dry Vitals - EU Blood Pressure 145/96 Pulse 76 bpm Respirations 18 br/min SPO2 98 % Last Modified By: Natividad Green LPN 08/24/22 14:57:31 General Comments: Temp:35.8 Finalized By: Natividad Green LPN Document Signatures Signed By: Natividad Green LPN 08/24/22 14:57 [facility] Operative Reporton Operative Report Patient: TARIK [...] urine. The Urethra was dilated to: 30 Hungarian w/ sounds. Devices Implanted: None. Removal: Cystoscope is removed, The patient tolerated it well. Postoperative Information Discharge: Patient is discharged home with antibiotic coverage, Follow up arranged, F/U six weeks. . [facility] Comment on above: Result Comment: Elec tronically Signed By: Joshua PRESTON MD\.br\Date and Time Signed: 08/24/22 15:53 EST Outpatient Surgery Discharge Instructionon 08-24-2022 Outpatient Surgery Discharge Instruction [id number]#[id number]:127 [facility] Outpatient Surgery Discharge Instruction [place] [id number] Patient Discharge Instructions PERSON INFORMATION Name: RACHEL [...] Follow up: With: Address: When: Joshua PRESTON [address] [place] [address], [address], [place] [phone] [facility] (1) Within 6 weeks Comments: Call for [...] Date You may receive a survey from [employer] asking you to rate your care experience. Your feedback is important and will help us understand what we do well and how we can improve the quality of care we provide to you, your loved ones and our community. It?s an honor to serve you. Thank you for choosing [facility] RAD - CT Reporton 08-06-2022 RAD - CT Report .[id number]#1.00CD:127 [facility] RAD - Ultrasound Reporton RAD - Ultrasound Report [id number]#1.00CD:127 [facility] Physician Referralon 022 Physician Referral [id number]#1.00CD:127 [facility] Patient Educationon 07-31-20 22 Patient Education [...] including vitamins, herbs, eye drops, creams, and qfmb-txs-kqlfkct medicines. ? Whether you are or may [...] system diseases. (more content not included)... [facility] Urology Office/Clinic Noteon 07-31-2022 Urology Office/Clinic [...] Information JORDANA BALDERAS, Joshua Dempsey, URL [address] [facility] [address] [place] [phone]- Additional Instructions: Cysto/ Urodynamics Patient Education Urodynamic [...] No qual (more content not included)... [facility] Comment on above: Result Comment: Elec tronically Signed By: Joshua PRESTON MD\.br\Date and Time Signed: 07/31/22 12:15 EDT\.br\Electronically Co-Signed By: Viji Johnson\.br\Date and Time Co-Signed: 07/31/22 12:12 EDT Basophils Auto (Bld) [#/Vol] Ordered By: Ajit Pettit on 07-08-2022 Basophils (Bld) [#/Vol] 0.1 10*3/uL 0.0-0.2 [facility] Basophils/100 WBC Auto (Bld) Ordered By: Ajit Pettit on 07-08-2022 Basophils/100 WBC (Bld) 0.4 % . [facility] Blood hemoglobin measurement (mass/volume)Ordered By: Ajit Pettit on 07-08-2022 Hemoglobin (Bld) [Mass/Vol] 12.7 g/dL 11.8-15.4 [facility] Blood leukocytes automated c ount (number/volume)Ordered By: Ajit Pettit on 07-08-2022 WBC (Bld) [#/Vol] 14.3 10*3/uL 4.5-11.[address] [facility] Body fluid albumin measureme nt (mass/volume)Ordered By: Ajit Pettit on 07-08-2022 Albumin (Body fld) [Mass/Vol] 3.6 g/dL 3.2-5.5 [facility] Creatinine and Glomerular fi ltration rate.predicted panel (S/P/Bld)Ordered By: Ajit Pettit on 07-08-2022 Creatinine [Mass/Vol] 0.66 mg/dL 0.44-1.03 [facility] Eosinophils Auto (Bld) [#/Vo l]Ordered By: Ajit Pettit on 07-08-2022 Eosinophils (Bld) [#/Vol] 0.2 10*3/uL 0.0-0.45 [facility] Eosinophils/100 WBC Auto (Bl d)Ordered By: Ajit Pettit on 07-08-2022 Eosinophils/100 WBC (Bld) 1.2 % . [facility] Erythrocyte distribution wid th Auto (RBC) [Ratio]Ordered By: Ajit Pettit on 07-08-2022 Erythrocyte distribution width (RBC) [Ratio] 13.5 % 11.9-15.3 [facility] Estimated glomerular filtrat ion rate (GFR) non- AmericanOrdered By: Ajit Pettit on 07-08-2022 GFR/1.73 sq M.predicted among non-blacks MDRD (S/P/Bld) [Vol rate/Area] > 60 mL/Min [facility] Globulin Calc (S) [Mass/Vol] Ordered By: Ajit Pettit on 07-08-2022 Globulin (S) [Mass/Vol] 2.4 g/dL [facility] Hematocrit Auto (Bld) [Volum e fraction]Ordered By: Ajit Pettit on 07-08-2022 Hematocrit (Bld) [Volume fraction] 38.9 % 34.0-46.4 [facility] Laboratory - Hematology and Cell countsOrdered By: Ajit Pettit on 07-08-2022 Nucleated RBC/100 WBC (Bld) [Ratio] 0.0 % 0-0.5 [facility] Lymphocytes Auto (Bld) [#/Vo l]Ordered By: Ajit Pettit on 07-08-2022 Lymphocytes (Bld) [#/Vol] 4.5 10*3/uL 1.00-4.8 [facility] Lymphocytes/100 WBC Auto (Bl d)Ordered By: Ajit Pettit on 07-08-2022 Lymphocytes/100 WBC (Bld) 31.2 % . [facility] MCH Auto (RBC) [Entitic mass ]Ordered By: Ajit Pettit on 07-08-2022 MCH (RBC) [Entitic mass] 29.7 pg 24.7-34.3 [facility] MCHC Auto (RBC) [Mass/Vol]Or dered By: Ajit Pettit on 07-08-2022 MCHC (RBC) [Mass/Vol] 32.7 g/dL 32.0-35.0 [facility] MCV Auto (RBC) [Entitic vol] Ordered By: Ajit Pettit on 07-08-2022 MCV (RBC) [Entitic vol] 90.8 fL 80-100 F [facility] Monocytes Auto (Bld) [#/Vol] Ordered By: Ajit Pettit on 07-08-2022 Monocytes (Bld) [#/Vol] 1.1 10*3/uL 0.0-0.8 [facility] Monocytes/100 WBC Auto (Bld) Ordered By: Ajit Pettit on 07-08-2022 Monocytes/100 WBC (Bld) 7.8 % . F [facility] Neutrophils Auto (Bld) [#/Vo l]Ordered By: Ajit Pettit on 07-08-2022 Neutrophils (Bld) [#/Vol] 8.5 10*3/uL 1.8-7.7 [facility] Neutrophils/100 WBC Auto (Bl d)Ordered By: Ajit Pettit on 07-08-2022 Neutrophils/100 WBC (Bld) 59.4 % . [facility] No Panel InformationOrdered By: Ajit Pettit on 07-08-2022 Estimated GFR () > 60 mL/Min [facility] Comment on above: GFR estimated refere nce range: According to KDOQI guidelines, <60 ml/min/1.73m2 is sufficient to diagnose a patient with chronic kidney disease. Pharmacy Creatinine Clearance (Chem N/A [facility] Platelet mean volume Auto (B ld) [Entitic vol]Ordered By: Ajit Pettit on 07-08-2022 Platelet mean volume (Bld) [Entitic vol] 8.3 fL 6.3-10.7 [facility] Platelets Auto (Bld) [#/Vol] Ordered By: Ajit Pettit on 07-08-2022 Platelets (Bld) [#/Vol] 332 10*3/uL 150-450 [facility] Protein [Mass/volume] in Ser um or PlasmaOrdered By: Ajit Pettit on 07-08-2022 Protein [Mass/Vol] 6.0 g/dL 6.1-7.9 [facility] RBC Auto (Bld) [#/Vol]Ordere d By: Ajit Pettit on 07-08-2022 RBC (Bld) [#/Vol] 4.29 10*6/uL 3.60-5.[address] [facility] Serum or plasma alanine george otransferase measurement without P-5'-P (enzymatic activiOrdered By: Ajit Pettit on 07-08-2022 ALT No additional P-5'-P [Catalytic activity/Vol] 26 U/L [facility] Serum or plasma albumin/glob ulin mass ratioOrdered By: Ajit Pettit on 07-08-2022 Albumin/Globulin [Mass ratio] 1.5 {ratio} [facility] Serum or plasma alkaline lalo sphatase measurement (enzymatic activity/volume)Ordered By: Ajit Pettit on 07-08-2022 ALP [Catalytic activity/Vol] 46 U/L 32-92 [facility] Serum or plasma anion gap de terminationOrdered By: Ajit Pettit on 07-08-2022 Anion gap [Moles/Vol] 15.1 mmol/L 6.0-15.0 [facility] Serum or plasma aspartate am inotransferase measurement (enzymatic activity/volume)Ordered By: Ajit Pettit on 07-08-2022 AST [Catalytic activity/Vol] 31 U/L [facility] Serum or plasma calcium ashwini urement (mass/volume)Ordered By: Ajit Pettit on 07-08-2022 Calcium [Mass/Vol] 9.3 mg/dL 8.2-10.2 [facility] Serum or plasma chloride jett surement (moles/volume)Ordered By: Ajit Pettit on 07-08-2022 Chloride [Moles/Vol] 101 mmol/L 95-114 [facility] Serum or plasma glucose ashwini urement (mass/volume)Ordered By: Ajit Pettit on 07-08-2022 Glucose [Mass/Vol] 129 mg/dL 70-100 [facility] Comment on above: ADA recommended refe rence rangeRandom Glucose Reference Range is dependent on time and content of last meal. Glucose of more than 200 mg/dL in a nonstressed, ambulatory subject supports the diagnosis of Diabetes Mellitus. Serum or plasma potassium me asurement (moles/volume)Ordered By: Ajit Pettit on 07-08-2022 Potassium [Moles/Vol] 5.0 mmol/L 3.5-5.1 [facility] Serum or plasma sodium measu rement (moles/volume)Ordered By: Ajit Pettit on 07-08-2022 Sodium [Moles/Vol] 135 mmol/L 136-146 [facility] Serum or plasma total biliru bin measurement (mass/volume)Ordered By: Ajit Pettit on 07-08-2022 Bilirubin [Mass/Vol] 0.5 mg/dL 0.3-1.2 [facility] Serum or plasma total carbon dioxide measurement (moles/volume)Ordered By: Ajit Pettit on 07-08-2022 CO2 [Moles/Vol] 23.9 mmol/L 22.0-30.0 [facility] Serum or plasma urea nitroge n measurement (mass/volume)Ordered By: Ajit Pettit on 07-08-2022 Urea nitrogen [Mass/Vol] 12 mg/dL 06-26 [facility] TSH DL <= 0.005 mIU/L QnOrde red By: Ajit Pettit on 06-24-2022 TSH Qn 4.14 m[IU]/L 0.45-5.33 [facility] Basophils Auto (Bld) [#/Vol] Ordered By: Ajit Pettit on 06-02-2022 Basophils (Bld) [#/Vol] 0.1 10*3/uL 0.0-0.2 [facility] Basophils/100 WBC Auto (Bld) Ordered By: Ajit Pettit on 06-02-2022 Basophils/100 WBC (Bld) 0.9 % . [facility] Blood hemoglobin measurement (mass/volume)Ordered By: Ajit Pettit on 06-02-2022 Hemoglobin (Bld) [Mass/Vol] 12.9 g/dL 11.8-15.4 [facility] Blood leukocytes automated c ount (number/volume)Ordered By: Ajit Pettti on 06-02-2022 WBC (Bld) [#/Vol] 16.8 10*3/uL 4.5-11.[address] [facility] Body fluid albumin measureme nt (mass/volume)Ordered By: Ajit Pettit on 06-02-2022 Albumin (Body fld) [Mass/Vol] 3.5 g/dL 3.2-5.5 [facility] Creatinine and Glomerular fi ltration rate.predicted panel (S/P/Bld)Ordered By: Ajit Pettit on 06-02-2022 Creatinine [Mass/Vol] 0.58 mg/dL 0.44-1.03 [facility] Eosinophils Auto (Bld) [#/Vo l]Ordered By: Ajit Pettit on 06-02-2022 Eosinophils (Bld) [#/Vol] 0.1 10*3/uL 0.0-0.45 [facility] Eosinophils/100 WBC Auto (Bl d)Ordered By: Ajit Pettit on 06-02-2022 Eosinophils/100 WBC (Bld) 0.7 % . [facility] Erythrocyte distribution wid th Auto (RBC) [Ratio]Ordered By: Ajit Pettit on 06-02-2022 Erythrocyte distribution width (RBC) [Ratio] 13.3 % 11.9-15.3 [facility] Estimated glomerular filtrat ion rate (GFR) non- AmericanOrdered By: Ajit Pettit on 06-02-2022 GFR/1.73 sq M.predicted among non-blacks MDRD (S/P/Bld) [Vol rate/Area] > 60 mL/Min [facility] Globulin Calc (S) [Mass/Vol] Ordered By: Ajit Pettit on 06-02-2022 Globulin (S) [Mass/Vol] 2.5 g/dL [facility] Hematocrit Auto (Bld) [Volum e fraction]Ordered By: Ajit Pettit on 06-02-2022 Hematocrit (Bld) [Volume fraction] 38.8 % 34.0-46.4 [facility] Laboratory - Hematology and Cell countsOrdered By: Ajit Lariossic on 06-02-2022 Nucleated RBC/100 WBC (Bld) [Ratio] 0.0 % 0-0.5 [facility] Lymphocytes Auto (Bld) [#/Vo l]Ordered By: Ajit Lariossic on 06-02-2022 Lymphocytes (Bld) [#/Vol] 3.4 10*3/uL 1.00-4.8 [facility] Lymphocytes/100 WBC Auto (Bl d)Ordered By: Ajit Spasic on 06-02-2022 Lymphocytes/100 WBC (Bld) 20.3 % . [facility] MCH Auto (RBC) [Entitic mass ]Ordered By: Ajit Lariossic on 06-02-2022 MCH (RBC) [Entitic mass] 30.3 pg 24.7-34.3 [facility] MCHC Auto (RBC) [Mass/Vol]Or dered By: Ajit Spasic on 06-02-2022 MCHC (RBC) [Mass/Vol] 33.2 g/dL 32.0-35.0 [facility] MCV Auto (RBC) [Entitic vol] Ordered By: Ajit Lariossic on 06-02-2022 MCV (RBC) [Entitic vol] 91.1 fL 80-100 [facility] Monocytes Auto (Bld) [#/Vol] Ordered By: Ajit Spasic on 06-02-2022 Monocytes (Bld) [#/Vol] 1.2 10*3/uL 0.0-0.8 [facility] Monocytes/100 WBC Auto (Bld) Ordered By: Ajit Spasic on 06-02-2022 Monocytes/100 WBC (Bld) 7.2 % . [facility] Neutrophils Auto (Bld) [#/Vo l]Ordered By: Ajit Spasic on 06-02-2022 Neutrophils (Bld) [#/Vol] 11.9 10*3/uL 1.8-7.7 [facility] Neutrophils/100 WBC Auto (Bl d)Ordered By: Ajit Pettit on 06-02-2022 Neutrophils/100 WBC (Bld) 70.9 % . [facility] No Panel InformationOrdered By: Ajit Pettit on 06-02-2022 Estimated GFR () > 60 mL/Min [facility] Comment on above: GFR estimated refere nce range: According to KDOQI guidelines, <60 ml/min/1.73m2 is sufficient to diagnose a patient with chronic kidney disease. Pharmacy Creatinine Clearance (Chem N/A [facility] Platelet mean volume Auto (B ld) [Entitic vol]Ordered By: Ajit Pettit on 06-02-2022 Platelet mean volume (Bld) [Entitic vol] 9.2 fL 6.3-10.7 [facility] Platelets Auto (Bld) [#/Vol] Ordered By: Ajit Pettit on 06-02-2022 Platelets (Bld) [#/Vol] 313 10*3/uL 150-450 [facility] Protein [Mass/volume] in Ser um or PlasmaOrdered By: Ajit Pettit on 06-02-2022 Protein [Mass/Vol] 6.0 g/dL 6.1-7.9 [facility] RBC Auto (Bld) [#/Vol]Ordere d By: Ajit Pettit on 06-02-2022 RBC (Bld) [#/Vol] 4.26 10*6/uL 3.60-5.[address] [facility] Serum or plasma alanine george otransferase measurement without P-5'-P (enzymatic activiOrdered By: Ajit Pettit on 06-02-2022 ALT No additional P-5'-P [Catalytic activity/Vol] 20 U/L 10-60 [facility] Serum or plasma albumin/glob ulin mass ratioOrdered By: Ajit Pettit on 06-02-2022 Albumin/Globulin [Mass ratio] 1.4 {ratio} [facility] Serum or plasma alkaline lalo sphatase measurement (enzymatic activity/volume)Ordered By: Ajit Pettit on 06-02-2022 ALP [Catalytic activity/Vol] 48 U/L 32-92 [facility] Serum or plasma anion gap de terminationOrdered By: Ajit Pettit on 06-02-2022 Anion gap [Moles/Vol] 15.8 mmol/L 6.0-15.0 [facility] Serum or plasma aspartate am inotransferase measurement (enzymatic activity/volume)Ordered By: Ajit Pettit on 06-02-2022 AST [Catalytic activity/Vol] 21 U/L 10-42 [facility] Serum or plasma calcium ashwini urement (mass/volume)Ordered By: Ajit Pettit on 06-02-2022 Calcium [Mass/Vol] 9.1 mg/dL 8.2-10.2 [facility] Serum or plasma chloride jett surement (moles/volume)Ordered By: Ajit Pettit on 06-02-2022 Chloride [Moles/Vol] 100 mmol/L 95-114 [facility] Serum or plasma glucose ashwini urement (mass/volume)Ordered By: Ajit Pettit on 06-02-2022 Glucose [Mass/Vol] 141 mg/dL 70-100 [facility] Comment on above: ADA recommended refe [...] 06-02-2022 Potassium [Moles/Vol] 4.3 mmol/L 3.5-5.1 [facility] Serum or plasma sodium measu rement (moles/volume)Ordered By: Ajit Pettit on 06-02-2022 Sodium [Moles/Vol] 132 mmol/L 136-146 [facility] Serum or plasma total biliru bin measurement (mass/volume)Ordered By: Ajit Pettit on 06-02-2022 Bilirubin [Mass/Vol] 0.5 mg/dL 0.3-1.2 [facility] Serum or plasma total carbon dioxide measurement (moles/volume)Ordered By: Ajit Pettit on 06-02-2022 CO2 [Moles/Vol] 20.5 mmol/L 22.0-30.0 [facility] Serum or plasma urea nitroge n measurement (mass/volume)Ordered By: Ajit Pettit on 06-02-2022 Urea nitrogen [Mass/Vol] 12 mg/dL 9-23 [facility] TSH DL <= 0.005 mIU/L QnOrde red By: Ajit Pettit on 06-02-2022 TSH Qn 2.06 m[IU]/L 0.45-5.33 [facility] Basophils Auto (Bld) [#/Vol] Ordered By: Jasmin Velázquez on 05-27-2022 Basophils (Bld) [#/Vol] 0.1 10*3/uL 0.0-0.2 [facility] Basophils/100 WBC Auto (Bld) Ordered By: Jasmin Velázquez on 05-27-2022 Basophils/100 WBC (Bld) 0.6 % . [facility] Blood hemoglobin measurement (mass/volume)Ordered By: Jasmin Velázquez on 05-27-2022 Hemoglobin (Bld) [Mass/Vol] 13.1 g/dL 11.8-15.4 [facility] Blood leukocytes automated c ount (number/volume)Ordered By: Jasmin Velázquez on 05-27-2022 WBC (Bld) [#/Vol] 13.2 10*3/uL 4.5-11.[address] [facility] CT biopsyOrdered By: Jasmin noel on 05-27-2022 Transferrin [Mass/Vol] 307 mg/dL 180-380 [facility] Eosinophils Auto (Bld) [#/Vo l]Ordered By: Jasmin Velázquez on 05-27-2022 Eosinophils (Bld) [#/Vol] 0.1 10*3/uL 0.0-0.45 [facility] Eosinophils/100 WBC Auto (Bl d)Ordered By: Jasmin Velázquez on 05-27-2022 Eosinophils/100 WBC (Bld) 1.0 % . [facility] Erythrocyte distribution wid th Auto (RBC) [Ratio]Ordered By: Jasmin Velázquez on 05-27-2022 Erythrocyte distribution width (RBC) [Ratio] 13.5 % 11.9-15.3 [facility] Ferritin [Mass/volume] in Se rum or PlasmaOrdered By: Jasmin Velázquez on 05-27-2022 Ferritin [Mass/Vol] 49.6 ng/mL 11-306.[address] [facility] Hematocrit Auto (Bld) [Volum e fraction]Ordered By: Jasmin Velázquez on 05-27-2022 Hematocrit (Bld) [Volume fraction] 40.1 % 34.0-46.4 [facility] Iron [Mass/volume] in Serum or PlasmaOrdered By: Jasmin Velázquez on 05-27-2022 Iron [Mass/Vol] 50 ug/dL 40-150 [facility] Iron binding capacity [Mass/ volume] in Serum or PlasmaOrdered By: Jasmin Velázquez on 05-27-2022 Iron binding capacity [Mass/Vol] 430 ug/dL 255-450 [facility] Iron saturation [Mass Fracti on] in Serum or PlasmaOrdered By: Jasmin Velázquez on 05-27-2022 Iron saturation [Mass fraction] 11.0 % 20-50 [facility] Laboratory - Hematology and Cell countsOrdered By: Jasmin Velázquez on 05-27-2022 Nucleated RBC/100 WBC (Bld) [Ratio] 0.1 % 0-0.5 [facility] Lymphocytes Auto (Bld) [#/Vo l]Ordered By: Jasmin Velázquez on 05-27-2022 Lymphocytes (Bld) [#/Vol] 3.3 10*3/uL 1.00-4.8 [facility] Lymphocytes/100 WBC Auto (Bl d)Ordered By: Jasmin Velázquez on 05-27-2022 Lymphocytes/100 WBC (Bld) 24.8 % . [facility] MCH Auto (RBC) [Entitic mass ]Ordered By: Jasmin Velázquez on 05-27-2022 MCH (RBC) [Entitic mass] 30.0 pg 24.7-34.3 [facility] MCHC Auto (RBC) [Mass/Vol]Or dered By: Jasmin Velázquez on 05-27-2022 MCHC (RBC) [Mass/Vol] 32.7 g/dL 32.0-35.0 [facility] MCV Auto (RBC) [Entitic vol] Ordered By: Jasmin Velázquez on 05-27-2022 MCV (RBC) [Entitic vol] 91.5 fL 80-100 [facility] Monocytes Auto (Bld) [#/Vol] Ordered By: Jasmin Velázquez on 05-27-2022 Monocytes (Bld) [#/Vol] 1.0 10*3/uL 0.0-0.8 [facility] Monocytes/100 WBC Auto (Bld) Ordered By: Jasmin Velázquez on 05-27-2022 Monocytes/100 WBC (Bld) 7.6 % . [facility] Neutrophils Auto (Bld) [#/Vo l]Ordered By: Jasmin Velázquez on 05-27-2022 Neutrophils (Bld) [#/Vol] 8.7 10*3/uL 1.8-7.7 [facility] Neutrophils/100 WBC Auto (Bl d)Ordered By: Jasmin Velázquez on 05-27-2022 Neutrophils/100 WBC (Bld) 66.0 % . [facility] No Panel InformationOrdered By: Jasmin Velázquez on 05-27-2022 BCR/abl See comment [facility] Comment on above: See report. Scanned copy available in EMR. Platelet mean volume Auto (B ld) [Entitic vol]Ordered By: Jasmin Velázquez on 05-27-2022 Platelet mean volume (Bld) [Entitic vol] 8.8 fL 6.3-10.7 [facility] Platelets Auto (Bld) [#/Vol] Ordered By: Jasmin Velázquez on 05-27-2022 Platelets (Bld) [#/Vol] 284 10*3/uL 150-450 [facility] RBC Auto (Bld) [#/Vol]Ordere d By: Jasmin Velázquez on 05-27-2022 RBC (Bld) [#/Vol] 4.38 10*6/uL 3.60-5.[address] [facility] Basophils Auto (Bld) [#/Vol] Ordered By: Ajit Pettit on 05-07-2022 Basophils (Bld) [#/Vol] 0.1 10*3/uL 0.0-0.2 [facility] Basophils/100 WBC Auto (Bld) Ordered By: Ajit Pettit on 05-07-2022 Basophils/100 WBC (Bld) 0.6 % . [facility] Blood hemoglobin measurement (mass/volume)Ordered By: Ajit Pettit on 05-07-2022 Hemoglobin (Bld) [Mass/Vol] 13.4 g/dL 11.8-15.4 [facility] Blood leukocytes automated c ount (number/volume)Ordered By: Ajit Pettit on 05-07-2022 WBC (Bld) [#/Vol] 16.2 10*3/uL 4.5-11.[address] [facility] Eosinophils Auto (Bld) [#/Vo l]Ordered By: Ajit Pettit on 05-07-2022 Eosinophils (Bld) [#/Vol] 0.1 10*3/uL 0.0-0.45 [facility] Eosinophils/100 WBC Auto (Bl d)Ordered By: Ajit Pettit on 05-07-2022 Eosinophils/100 WBC (Bld) 0.9 % . [facility] Erythrocyte distribution wid th Auto (RBC) [Ratio]Ordered By: Ajit Pettit on 05-07-2022 Erythrocyte distribution width (RBC) [Ratio] 13.6 % 11.9-15.3 [facility] Hematocrit Auto (Bld) [Volum e fraction]Ordered By: Ajit Pettit on 05-07-2022 Hematocrit (Bld) [Volume fraction] 40.5 % 34.0-46.4 [facility] Laboratory - Hematology and Cell countsOrdered By: Ajit Pettit on 05-07-2022 Nucleated RBC/100 WBC (Bld) [Ratio] 0.0 % 0-0.5 [facility] Lymphocytes Auto (Bld) [#/Vo l]Ordered By: Ajit Pettit on 05-07-2022 Lymphocytes (Bld) [#/Vol] 4.7 10*3/uL 1.00-4.8 [facility] Lymphocytes/100 WBC Auto (Bl d)Ordered By: Ajit Pettit on 05-07-2022 Lymphocytes/100 WBC (Bld) 28.9 % . [facility] MCH Auto (RBC) [Entitic mass ]Ordered By: Ajit Pettit on 05-07-2022 MCH (RBC) [Entitic mass] 30.7 pg 24.7-34.3 [facility] MCHC Auto (RBC) [Mass/Vol]Or dered By: Ajit Pettit on 05-07-2022 MCHC (RBC) [Mass/Vol] 33.2 g/dL 32.0-35.0 [facility] MCV Auto (RBC) [Entitic vol] Ordered By: Ajit Pettit on 05-07-2022 MCV (RBC) [Entitic vol] 92.5 fL 80-100 [facility] Monocytes Auto (Bld) [#/Vol] Ordered By: Ajit Pettit on 05-07-2022 Monocytes (Bld) [#/Vol] 1.1 10*3/uL 0.0-0.8 [facility] Monocytes/100 WBC Auto (Bld) Ordered By: Ajit Pettit on 05-07-2022 Monocytes/100 WBC (Bld) 6.8 % . [facility] Neutrophils Auto (Bld) [#/Vo l]Ordered By: Ajit Pettit on 05-07-2022 Neutrophils (Bld) [#/Vol] 10.2 10*3/uL 1.8-7.7 [facility] Neutrophils/100 WBC Auto (Bl d)Ordered By: Ajit Pettit on 05-07-2022 Neutrophils/100 WBC (Bld) 62.8 % . [facility] No Panel InformationOrdered By: Ajit Pettit on 05-07-2022 Platelet Estimate Normal Normal [facility] Platelet Morphology Comment Normal Normal [facility] Platelet mean volume Auto (B ld) [Entitic vol]Ordered By: Ajit Pettit on 05-07-2022 Platelet mean volume (Bld) [Entitic vol] 8.0 fL 6.3-10.7 [facility] Platelets Auto (Bld) [#/Vol] Ordered By: Ajit Pettit on 05-07-2022 Platelets (Bld) [#/Vol] 369 10*3/uL 150-450 [facility] RBC Auto (Bld) [#/Vol]Ordere d By: Ajit Pettit on 05-07-2022 RBC (Bld) [#/Vol] 4.38 10*6/uL 3.60-5.[address] [facility] RBC morphologyOrdered By: Shelbi Pettit on 05-07-2022 RBC morphology finding Nom (Bld) Normal [facility] Bacterial blood cultureOrder ed By: Rod Alvarado on 05-06-2022 Bacteria identified Cx Nom (Bld) NO GROWTH 5 DAYS [facility] Bacteria identified Cx Nom (Bld) NO GROWTH 5 DAYS [facility] Bacterial blood cultureOrder ed By: Ajit Pettit on 05-06-2022 Bacteria identified Cx Nom (Bld) NO GROWTH 5 DAYS [facility] Urine culture routineOrdered By: Ajit Pettit on 05-02-2022 Bacteria identified Cx Nom (U) 2 Days [facility] Activated partial thrombopla stin time (aPTT) in platelet poor plasma by coagulation aOrdered By: Rod Alvarado on 05-01-2022 aPTT Coag (PPP) [Time] 29.2 s 25.1-36.5 [facility] Automated epithelial cells c ount in urine sediment (number/area)Ordered By: Rod Alvarado on 05-01-2022 Epithelial cells Auto (Urine sed) [#/Area] 5-9 [HPF] 0-2 [facility] Automated erythrocytes count in urine sediment (number/area)Ordered By: Rod Alvarado on 05-01-2022 RBC Auto (Urine sed) [#/Area] 1-2 [HPF] 0-4 [facility] Automated leukocytes count i n urine sediment (number/area)Ordered By: Rod Alvarado on 05-01-2022 WBC Auto (Urine sed) [#/Area] 1-2 [HPF] 0-4 [facility] Basophils Auto (Bld) [#/Vol] Ordered By: Rod Alvarado on 05-01-2022 Basophils (Bld) [#/Vol] 0.2 10*3/uL 0.0-0.2 [facility] Basophils Auto (Bld) [#/Vol] Ordered By: Ajit Pettit on 05-01-2022 Basophils (Bld) [#/Vol] 0.1 10*3/uL 0.0-0.2 [facility] Basophils/100 WBC Auto (Bld) Ordered By: Rod Alvarado on 05-01-2022 Basophils/100 WBC (Bld) 1.0 % . [facility] Basophils/100 WBC Auto (Bld) Ordered By: Ajit Pettit on 05-01-2022 Basophils/100 WBC (Bld) 0.7 % . [facility] Bilirubin Auto test strip Ql (U)Ordered By: Rod Alvarado on 05-01-2022 Bilirubin Ql (U) 1+ Negative [facility] Blood hemoglobin measurement (mass/volume)Ordered By: Rod Alvarado on 05-01-2022 Hemoglobin (Bld) [Mass/Vol] 13.1 g/dL 11.8-15.4 [facility] Blood hemoglobin measurement (mass/volume)Ordered By: Ajit Pettit on 05-01-2022 Hemoglobin (Bld) [Mass/Vol] 12.9 g/dL 11.8-15.4 [facility] Blood leukocytes automated c ount (number/volume)Ordered By: Rod Alvarado on 05-01-2022 WBC (Bld) [#/Vol] 15.9 10*3/uL 4.5-11.[address] [facility] Blood leukocytes automated c ount (number/volume)Ordered By: Ajit Pettit on 05-01-2022 WBC (Bld) [#/Vol] 14.7 10*3/uL 4.5-11.[address] [facility] Body fluid albumin measureme nt (mass/volume)Ordered By: Ajit Pettit on 05-01-2022 Albumin (Body fld) [Mass/Vol] 3.6 g/dL 3.2-5.5 [facility] Creatinine and Glomerular fi ltration rate.predicted panel (S/P/Bld)Ordered By: Rod Alvarado on 05-01-2022 Creatinine [Mass/Vol] 0.58 mg/dL 0.44-1.03 [facility] Creatinine and Glomerular fi ltration rate.predicted panel (S/P/Bld)Ordered By: Ajit Pettit on 05-01-2022 Creatinine [Mass/Vol] 0.58 mg/dL 0.44-1.03 [facility] Eosinophils Auto (Bld) [#/Vo l]Ordered By: Rod Alvarado on 05-01-2022 Eosinophils (Bld) [#/Vol] 0.2 10*3/uL 0.0-0.45 [facility] Eosinophils Auto (Bld) [#/Vo l]Ordered By: Ajit Pettit on 05-01-2022 Eosinophils (Bld) [#/Vol] 0.1 10*3/uL 0.0-0.45 [facility] Eosinophils/100 WBC Auto (Bl d)Ordered By: Rod Alvarado on 05-01-2022 Eosinophils/100 WBC (Bld) 1.0 % . [facility] Eosinophils/100 WBC Auto (Bl d)Ordered By: Ajit Pettit on 05-01-2022 Eosinophils/100 WBC (Bld) 0.9 % . [facility] Erythrocyte distribution wid th Auto (RBC) [Ratio]Ordered By: Rod Alvarado on 05-01-2022 Erythrocyte distribution width (RBC) [Ratio] 13.6 % 11.9-15.3 [facility] Erythrocyte distribution wid th Auto (RBC) [Ratio]Ordered By: Ajit Pettit on 05-01-2022 Erythrocyte distribution width (RBC) [Ratio] 13.6 % 11.9-15.3 [facility] Estimated glomerular filtrat ion rate (GFR) non- AmericanOrdered By: Rod Alvarado on 05-01-2022 GFR/1.73 sq M.predicted among non-blacks MDRD (S/P/Bld) [Vol rate/Area] > 60 mL/Min [facility] Estimated glomerular filtrat ion rate (GFR) non- AmericanOrdered By: Ajit Pettit on 05-01-2022 GFR/1.73 sq M.predicted among non-blacks MDRD (S/P/Bld) [Vol rate/Area] > 60 mL/Min [facility] Globulin Calc (S) [Mass/Vol] Ordered By: Ajit Pettit on 05-01-2022 Globulin (S) [Mass/Vol] 2.6 g/dL [facility] Hematocrit Auto (Bld) [Volum e fraction]Ordered By: Rod Alvarado on 05-01-2022 Hematocrit (Bld) [Volume fraction] 39.0 % 34.0-46.4 [facility] Hematocrit Auto (Bld) [Volum e fraction]Ordered By: Ajit Pettit on 05-01-2022 Hematocrit (Bld) [Volume fraction] 39.0 % 34.0-46.4 [facility] Ketones Auto test strip (U) [Mass/Vol]Ordered By: Rod Alvarado on 05-01-2022 Ketones (U) [Mass/Vol] Trace Negative Fi [facility] Laboratory - Chemistry and C hemistry - challengeOrdered By: Rod Alvarado on 05-01-2022 Lipase [Catalytic activity/Vol] 37.0 U/L 22-51 [facility] Laboratory - CoagulationOrde red By: Rod Alvarado on 05-01-2022 PT Coag (PPP) [Time] 9.6 s 9.0-12.9 [facility] Laboratory - Hematology and Cell countsOrdered By: Rod Alvarado on 05-01-2022 Nucleated RBC/100 WBC (Bld) [Ratio] 0.0 % 0-0.5 [facility] Laboratory - Hematology and Cell countsOrdered By: Ajit Pettit on 05-01-2022 Nucleated RBC/100 WBC (Bld) [Ratio] 0.0 % 0-0.5 [facility] Lymphocytes Auto (Bld) [#/Vo l]Ordered By: oRd Alvarado on 05-01-2022 Lymphocytes (Bld) [#/Vol] 4.3 10*3/uL 1.00-4.8 [facility] Lymphocytes Auto (Bld) [#/Vo l]Ordered By: Ajit Pettit on 05-01-2022 Lymphocytes (Bld) [#/Vol] 3.6 10*3/uL 1.00-4.8 [facility] Lymphocytes/100 WBC Auto (Bl d)Ordered By: Rod Alvarado on 05-01-2022 Lymphocytes/100 WBC (Bld) 26.9 % . [facility] Lymphocytes/100 WBC Auto (Bl d)Ordered By: Ajit Pettit on 05-01-2022 Lymphocytes/100 WBC (Bld) 24.8 % . [facility] MCH Auto (RBC) [Entitic mass ]Ordered By: Rod Alvarado on 05-01-2022 MCH (RBC) [Entitic mass] 30.5 pg 24.7-34.3 [facility] MCH Auto (RBC) [Entitic mass ]Ordered By: Ajit Pettit on 05-01-2022 MCH (RBC) [Entitic mass] 30.5 pg 24.7-34.3 [facility] MCHC Auto (RBC) [Mass/Vol]Or dered By: Rod Alvarado on 05-01-2022 MCHC (RBC) [Mass/Vol] 33.5 g/dL 32.0-35.0 [facility] MCHC Auto (RBC) [Mass/Vol]Or dered By: Ajit Pettit on 05-01-2022 MCHC (RBC) [Mass/Vol] 32.9 g/dL 32.0-35.0 [facility] MCV Auto (RBC) [Entitic vol] Ordered By: Rod Alvarado on 05-01-2022 MCV (RBC) [Entitic vol] 91.0 fL 80-100 F [facility] MCV Auto (RBC) [Entitic vol] Ordered By: Ajit Pettit on 05-01-2022 MCV (RBC) [Entitic vol] 92.6 fL 80-100 F [facility] Monocytes Auto (Bld) [#/Vol] Ordered By: Rod Alvarado on 05-01-2022 Monocytes (Bld) [#/Vol] 1.1 10*3/uL 0.0-0.8 [facility] Monocytes Auto (Bld) [#/Vol] Ordered By: Ajit Pettit on 05-01-2022 Monocytes (Bld) [#/Vol] 1.1 10*3/uL 0.0-0.8 [facility] Monocytes/100 WBC Auto (Bld) Ordered By: Rod Alvarado on 05-01-2022 Monocytes/100 WBC (Bld) 6.7 % . [facility] Monocytes/100 WBC Auto (Bld) Ordered By: Ajit Pettit on 05-01-2022 Monocytes/100 WBC (Bld) 7.2 % . [facility] Neutrophils Auto (Bld) [#/Vo l]Ordered By: Rod Alvarado on 05-01-2022 Neutrophils (Bld) [#/Vol] 10.3 10*3/uL 1.8-7.7 [facility] Neutrophils Auto (Bld) [#/Vo l]Ordered By: Ajit Pettit on 05-01-2022 Neutrophils (Bld) [#/Vol] 9.8 10*3/uL 1.8-7.7 [facility] Neutrophils/100 WBC Auto (Bl d)Ordered By: Rod Alvarado on 05-01-2022 Neutrophils/100 WBC (Bld) 64.4 % . [facility] Neutrophils/100 WBC Auto (Bl d)Ordered By: Ajit Pettit on 05-01-2022 Neutrophils/100 WBC (Bld) 66.4 % . [facility] No Panel InformationOrdered By: Rod Alvarado on 05-01-2022 Estimated GFR () > 60 mL/Min [facility] Comment on above: GFR estimated refere nce range: According to KDOQI guidelines, <60 ml/min/1.73m2 is sufficient to diagnose a patient with chronic kidney disease. Pharmacy Creatinine Clearance (Chem 128.97 [facility] No Panel InformationOrdered By: Ajit Pettit on 05-01-2022 Estimated GFR () > 60 mL/Min [facility] Comment on above: GFR estimated refere nce range: According to KDOQI guidelines, <60 ml/min/1.73m2 is sufficient to diagnose a patient with chronic kidney disease. Pharmacy Creatinine Clearance (Chem N/A [facility] Platelet mean volume Auto (B ld) [Entitic vol]Ordered By: Rod Alvarado on 05-01-2022 Platelet mean volume (Bld) [Entitic vol] 7.6 fL 6.3-10.7 [facility] Platelet mean volume Auto (B ld) [Entitic vol]Ordered By: Ajit Pettit on 05-01-2022 Platelet mean volume (Bld) [Entitic vol] 8.1 fL 6.3-10.7 [facility] Platelet poor plasma interna tional normalized ratio (INR) by coagulation assay (relatOrdered By: Rod Alvarado on 05-01-2022 INR Coag (PPP) [Relative time] 0.9 {INR} [facility] Comment on above: INR Therapeutic Rang e [...] 05-01-2022 Platelets (Bld) [#/Vol] 310 10*3/uL 150-450 [facility] Platelets Auto (Bld) [#/Vol] Ordered By: Ajit Pettit on 05-01-2022 Platelets (Bld) [#/Vol] 284 10*3/uL 150-450 [facility] Protein Auto test strip (U) [Mass/Vol]Ordered By: Rod Alvarado on 05-01-2022 Protein (U) [Mass/Vol] Negative Negative Fi [facility] Protein [Mass/volume] in Ser um or PlasmaOrdered By: Ajit Pettit on 05-01-2022 Protein [Mass/Vol] 6.2 g/dL 6.1-7.9 [facility] RBC Auto (Bld) [#/Vol]Ordere d By: Rod Alvarado on 05-01-2022 RBC (Bld) [#/Vol] 4.29 10*6/uL 3.60-5.[address] [facility] RBC Auto (Bld) [#/Vol]Ordere d By: Ajit Pettit on 05-01-2022 RBC (Bld) [#/Vol] 4.22 10*6/uL 3.60-5.[address] [facility] Serum or plasma alanine george otransferase measurement without P-5'-P (enzymatic activiOrdered By: Ajit Pettit on 05-01-2022 ALT No additional P-5'-P [Catalytic activity/Vol] 17 U/L 10-60 [facility] Serum or plasma albumin/glob ulin mass ratioOrdered By: Ajit Pettit on 05-01-2022 Albumin/Globulin [Mass ratio] 1.4 {ratio} [facility] Serum or plasma alkaline lalo sphatase measurement (enzymatic activity/volume)Ordered By: Ajit Pettit on 05-01-2022 ALP [Catalytic activity/Vol] 52 U/L 32-92 [facility] Serum or plasma aspartate am inotransferase measurement (enzymatic activity/volume)Ordered By: Ajit Pettit on 05-01-2022 AST [Catalytic activity/Vol] 19 U/L 10-42 [facility] Serum or plasma calcium ashwini urement (mass/volume)Ordered By: Rod Alvarado on 05-01-2022 Calcium [Mass/Vol] 9.0 mg/dL 8.2-10.2 [facility] Serum or plasma calcium ashwini urement (mass/volume)Ordered By: Ajit Pettit on 05-01-2022 Calcium [Mass/Vol] 9.2 mg/dL 8.2-10.2 [facility] Serum or plasma chloride jett surement (moles/volume)Ordered By: Rod Alvarado on 05-01-2022 Chloride [Moles/Vol] 101 mmol/L 95-114 [facility] Serum or plasma chloride jett surement (moles/volume)Ordered By: Ajit Pettit on 05-01-2022 Chloride [Moles/Vol] 100 mmol/L 95-114 [facility] Serum or plasma glucose ashwini urement (mass/volume)Ordered By: Rod Alvarado on 05-01-2022 Glucose [Mass/Vol] 110 mg/dL 70-100 [facility] Comment on above: ADA recommended refe [...] on 05-01-2022 Glucose [Mass/Vol] 117 mg/dL 70-100 [facility] Comment on above: ADA recommended refe [...] 05-01-2022 Potassium [Moles/Vol] 4.4 mmol/L 3.5-5.1 [facility] Serum or plasma potassium me asurement (moles/volume)Ordered By: Ajit Pettit on 05-01-2022 Potassium [Moles/Vol] 4.4 mmol/L 3.5-5.1 [facility] Serum or plasma sodium measu rement (moles/volume)Ordered By: Rod Alvarado on 05-01-2022 Sodium [Moles/Vol] 135 mmol/L 136-146 [facility] Serum or plasma sodium measu rement (moles/volume)Ordered By: Ajit Pettit on 05-01-2022 Sodium [Moles/Vol] 133 mmol/L 136-146 [facility] Serum or plasma total biliru bin measurement (mass/volume)Ordered By: Rod Alvarado on 05-01-2022 Bilirubin [Mass/Vol] 0.7 mg/dL 0.3-1.2 [facility] Serum or plasma total biliru bin measurement (mass/volume)Ordered By: Ajit Pettit on 05-01-2022 Bilirubin [Mass/Vol] 0.4 mg/dL 0.3-1.2 [facility] Serum or plasma total carbon dioxide measurement (moles/volume)Ordered By: Rod Alvarado on 05-01-2022 CO2 [Moles/Vol] 25.9 mmol/L 22.0-30.0 [facility] Serum or plasma total carbon dioxide measurement (moles/volume)Ordered By: Ajit Pettit on 05-01-2022 CO2 [Moles/Vol] 23.1 mmol/L 22.0-30.0 [facility] Serum or plasma urea nitroge n measurement (mass/volume)Ordered By: Rod Alvarado on 05-01-2022 Urea nitrogen [Mass/Vol] 11 mg/dL 06-26 [facility] Serum or plasma urea nitroge n measurement (mass/volume)Ordered By: Ajit Pettit on 05-01-2022 Urea nitrogen [Mass/Vol] 14 mg/dL 06-26 [facility] Urine appearanceOrdered By: Rod Alvarado on 05-01-2022 Appearance (U) Clear Clear [facility] Urine bacteria detection by automated methodOrdered By: Rod Alvarado on 05-01-2022 Bacteria Auto Ql (U) 1+ None Seen [facility] Urine colorOrdered By: Shady Alvarado on 05-01-2022 Color (U) Yellow Yellow [facility] Urine glucose measurement by automated test strip (mass/volume)Ordered By: Rod Alvarado on 05-01-2022 Glucose Auto test strip (U) [Mass/Vol] Normal mg/dL Normal [facility] Urine hemoglobin detection b y automated test stripOrdered By: Rod Alvarado on 05-01-2022 Hemoglobin Auto test strip Ql (U) Negative Negative [facility] Urine lactic acid measuremen tOrdered By: Rod Alvarado on 05-01-2022 Lactate (U) [Moles/Vol] 1.7 mmol/L 0.5-2.2 F [facility] Urine lactic acid measuremen tOrdered By: Ajit Pettit on 05-01-2022 Lactate (U) [Moles/Vol] 2.5 mmol/L 0.5-2.2 [facility] Comment on above: Results called at 1022 on 05/01/22 Results calledat 102 2 on 05/01/22 Urine leukocyte esterase det ection by automated test stripOrdered By: Rod Alvarado on 05-01-2022 Leukocyte esterase Auto test strip Ql (U) 2+ Negative [facility] Urine nitrite detection by a utomated test stripOrdered By: Rod Alvarado on 05-01-2022 Nitrite Auto test strip Ql (U) Negative Negative [facility] Urobilinogen Auto test strip (U) [Mass/Vol]Ordered By: Rod Alvarado on 05-01-2022 Urobilinogen (U) [Mass/Vol] Normal mg/dL Normal [facility] pH Auto test strip (U)Ordere d By: Rod Alvarado on 05-01-2022 pH (U) 1.030 [pH] 1.001-1.03 0 [facility] pH (U) 6.0 [pH] 5.0-9.0 [facility] Basophils Auto (Bld) [#/Vol] Ordered By: Ajit Pettit on 04-30-2022 Basophils (Bld) [#/Vol] 0.2 10*3/uL 0.0-0.2 [facility] Basophils/100 WBC Auto (Bld) Ordered By: Ajit Pettit on 04-30-2022 Basophils/100 WBC (Bld) 0.9 % . F [facility] Blood hemoglobin measurement (mass/volume)Ordered By: Ajit Pettit on 04-30-2022 Hemoglobin (Bld) [Mass/Vol] 13.9 g/dL 11.8-15.4 [facility] Blood leukocytes automated c ount (number/volume)Ordered By: Ajit Pettit on 04-30-2022 WBC (Bld) [#/Vol] 19.7 10*3/uL 4.5-11.[address] [facility] Body fluid albumin measureme nt (mass/volume)Ordered By: Ajit Pettit on 04-30-2022 Albumin (Body fld) [Mass/Vol] 4.1 g/dL 3.2-5.[address] [facility] [address] biopsyOrdered By: Ajit corrales on 04-30-2022 Transferrin [Mass/Vol] 352 mg/dL 180-380 [facility] Cholesterol [Mass/volume] in Serum or PlasmaOrdered By: Ajit Pettit on 04-30-2022 Cholesterol [Mass/Vol] 260 mg/dL 140-200 [facility] Comment on above: Chol less than 200 m g/dl low risk Chol 201-239 mg/dl borderline risk Chol 240 mg/dl and greater high risk Chol less than 200 m g/dl low riskChol 201-239 mg/dl borderline riskChol 240 mg/dl and greater high risk Cholesterol in LDL Calc [Mas s/Vol]Ordered By: Ajit Pettit on 04-30-2022 Cholesterol in LDL [Mass/Vol] 134 mg/dL 0-100 [facility] Comment on above: LDL ATP III CLASSIFI [...] 04-30-2022 Cholesterol in VLDL [Mass/Vol] 68 mg/dL [facility] Creatinine and Glomerular fi ltration rate.predicted panel (S/P/Bld)Ordered By: Ajit Pettit on 04-30-2022 Creatinine [Mass/Vol] 0.56 mg/dL 0.44-1.03 [facility] Eosinophils Auto (Bld) [#/Vo l]Ordered By: Ajit Pettit on 04-30-2022 Eosinophils (Bld) [#/Vol] 0.2 10*3/uL 0.0-0.45 [facility] Eosinophils/100 WBC Auto (Bl d)Ordered By: Ajit Pettit on 04-30-2022 Eosinophils/100 WBC (Bld) 1.0 % . [facility] Erythrocyte distribution wid th Auto (RBC) [Ratio]Ordered By: Ajit Pettit on 04-30-2022 Erythrocyte distribution width (RBC) [Ratio] 13.5 % 11.9-15.3 [facility] Estimated glomerular filtrat ion rate (GFR) non- AmericanOrdered By: Ajit Pettit on 04-30-2022 GFR/1.73 sq M.predicted among non-blacks MDRD (S/P/Bld) [Vol rate/Area] > 60 mL/Min [facility] Globulin Calc (S) [Mass/Vol] Ordered By: Ajit Pettit on 04-30-2022 Globulin (S) [Mass/Vol] 2.9 g/dL [facility] Hematocrit Auto (Bld) [Volum e fraction]Ordered By: Ajit Pettit on 04-30-2022 Hematocrit (Bld) [Volume fraction] 42.9 % 34.0-46.4 [facility] Iron [Mass/volume] in Serum or PlasmaOrdered By: Ajit Pettit on 04-30-2022 Iron [Mass/Vol] 51 ug/dL 40-150 [facility] Iron binding capacity [Mass/ volume] in Serum or PlasmaOrdered By: Ajit Pettit on 04-30-2022 Iron binding capacity [Mass/Vol] 493 ug/dL 255-450 [facility] Iron saturation [Mass Fracti on] in Serum or PlasmaOrdered By: Ajit Pettit on 04-30-2022 Iron saturation [Mass fraction] 10.0 % 20-50 [facility] Laboratory - Chemistry and C hemistry - challengeOrdered By: Ajit Pettit on 04-30-2022 Cobalamin (Vitamin B12) [Mass/Vol] 472 pg/mL 180-914 [facility] Laboratory - Hematology and Cell countsOrdered By: Ajit Pettit on 04-30-2022 Nucleated RBC/100 WBC (Bld) [Ratio] 0.2 % 0-0.5 [facility] Lymphocytes Auto (Bld) [#/Vo l]Ordered By: Ajit Pettit on 04-30-2022 Lymphocytes (Bld) [#/Vol] 4.1 10*3/uL 1.00-4.8 [facility] Lymphocytes/100 WBC Auto (Bl d)Ordered By: Ajit Pettit on 04-30-2022 Lymphocytes/100 WBC (Bld) 20.8 % . [facility] MCH Auto (RBC) [Entitic mass ]Ordered By: Ajit Pettit on 04-30-2022 MCH (RBC) [Entitic mass] 30.0 pg 24.7-34.3 [facility] MCHC Auto (RBC) [Mass/Vol]Or dered By: Ajit Pettit on 04-30-2022 MCHC (RBC) [Mass/Vol] 32.4 g/dL 32.0-35.0 [facility] MCV Auto (RBC) [Entitic vol] Ordered By: Ajit Pettit on 04-30-2022 MCV (RBC) [Entitic vol] 92.7 fL 80-100 [facility] Monocytes Auto (Bld) [#/Vol] Ordered By: Ajit Pettit on 04-30-2022 Monocytes (Bld) [#/Vol] 1.3 10*3/uL 0.0-0.8 [facility] Monocytes/100 WBC Auto (Bld) Ordered By: Ajit Millanc on 04-30-2022 Monocytes/100 WBC (Bld) 6.8 % . [facility] Neutrophils Auto (Bld) [#/Vo l]Ordered By: Ajit Millanc on 04-30-2022 Neutrophils (Bld) [#/Vol] 13.9 10*3/uL 1.8-7.7 [facility] Neutrophils/100 WBC Auto (Bl d)Ordered By: Ajit Pettit on 04-30-2022 Neutrophils/100 WBC (Bld) 70.5 % . [facility] No Panel InformationOrdered By: Ajit Pettit on 04-30-2022 25-Hydroxy Vitamin D Total 19.9 ng/mL 30-100 [facility] Comment on above: VITAMIN D [...] 96(7):1911-30. Estimated GFR () > 60 mL/Min [facility] Comment on above: GFR estimated refere nce range: According to KDOQI guidelines, <60 ml/min/1.73m2 is sufficient to diagnose a patient with chronic kidney disease. Pharmacy Creatinine Clearance (Chem N/A [facility] Valproic Acid (Depakene) Level 59.8 ug/mL 50.0-100.0 [facility] Comment on above: Last dose: - Platelet mean volume Auto (B ld) [Entitic vol]Ordered By: Ajit Pettit on 04-30-2022 Platelet mean volume (Bld) [Entitic vol] 8.7 fL 6.3-10.7 [facility] Platelets Auto (Bld) [#/Vol] Ordered By: Ajit Pettit on 04-30-2022 Platelets (Bld) [#/Vol] 257 10*3/uL 150-450 [facility] Protein [Mass/volume] in Ser um or PlasmaOrdered By: Ajit Pettit on 04-30-2022 Protein [Mass/Vol] 7.0 g/dL 6.1-7.9 [facility] RBC Auto (Bld) [#/Vol]Ordere d By: Ajit Pettit on 04-30-2022 RBC (Bld) [#/Vol] 4.62 10*6/uL 3.60-5.[address] [facility] Serum or plasma alanine george otransferase measurement without P-5'-P (enzymatic activiOrdered By: Ajit Pettit on 04-30-2022 ALT No additional P-5'-P [Catalytic activity/Vol] 20 U/L 10-60 [facility] Serum or plasma albumin/glob ulin mass ratioOrdered By: Ajit Pettit on 04-30-2022 Albumin/Globulin [Mass ratio] 1.4 {ratio} [facility] Serum or plasma alkaline lalo sphatase measurement (enzymatic activity/volume)Ordered By: Ajit Pettit on 04-30-2022 ALP [Catalytic activity/Vol] 54 U/L 32-92 [facility] Serum or plasma aspartate am inotransferase measurement (enzymatic activity/volume)Ordered By: Ajit Pettit on 04-30-2022 AST [Catalytic activity/Vol] 22 U/L 10-42 [facility] Serum or plasma calcium ashwini urement (mass/volume)Ordered By: Ajit Pettit on 04-30-2022 Calcium [Mass/Vol] 9.4 mg/dL 8.2-10.2 [facility] Serum or plasma chloride jett surement (moles/volume)Ordered By: Ajit Pettit on 04-30-2022 Chloride [Moles/Vol] 102 mmol/L 95-114 [facility] Serum or plasma glucose ashwini urement (mass/volume)Ordered By: Ajit Pettit on 04-30-2022 Glucose [Mass/Vol] 115 mg/dL 70-100 [facility] Comment on above: ADA recommended refe [...] Cholesterol in HDL [Mass/Vol] 57 mg/dL 35-85 [facility] Comment on above: HDL CHOL ATP-III CLA SSIFICATION Cardiovascular Risk HDL > or equal to 60 mg/dL LOW HDL < 40 mg/dL HIGH HDL CHOL ATP-III CLA SSIFICATION Cardiovascular RiskHDL > or equal to 60 mg/dL LOWHDL < 40 mg/dL HIGH Serum or plasma potassium me asurement (moles/volume)Ordered By: Ajit Pettit on 04-30-2022 Potassium [Moles/Vol] 4.8 mmol/L 3.5-5.1 [facility] Serum or plasma sodium measu rement (moles/volume)Ordered By: Ajit Pettit on 04-30-2022 Sodium [Moles/Vol] 135 mmol/L 136-146 [facility] Serum or plasma total biliru bin measurement (mass/volume)Ordered By: Ajit Pettit on 04-30-2022 Bilirubin [Mass/Vol] 0.2 mg/dL 0.3-1.2 [facility] Serum or plasma total carbon dioxide measurement (moles/volume)Ordered By: Ajit Pettit on 04-30-2022 CO2 [Moles/Vol] 24.2 mmol/L 22.0-30.0 [facility] Serum or plasma total choles terol/high density lipoprotein (HDL) cholesterol mass ratOrdered By: Ajit Pettit on 04-30-2022 Cholesterol.total/Suellen sterol in HDL [Mass ratio] 4.6 {ratio} <5.0 [facility] Serum or plasma urea nitroge n measurement (mass/volume)Ordered By: Ajit Pettit on 04-30-2022 Urea nitrogen [Mass/Vol] 12 mg/dL 9-23 [facility] TSH DL <= 0.005 mIU/L QnOrde red By: Ajit Pettit on 04-30-2022 TSH Qn 2.89 m[IU]/L 0.45-5.33 [facility] Triglyceride [Mass/volume] i n Serum or PlasmaOrdered By: Ajit Pettit on 04-30-2022 Triglyceride [Mass/Vol] 344 mg/dL 35-149 [facility] Comment on above: TRIG ATP III [...] 01-21-2021 Basophils (Bld) [#/Vol] 0.1 10*3/uL 0.0-0.2 [facility] Basophils/100 WBC Auto (Bld) on 01-21-2021 Basophils/100 WBC (Bld) 1.0 % F [facility] Blood hemoglobin measurement (mass/volume)on 01-21-2021 Hemoglobin (Bld) [Mass/Vol] 13.0 g/dL 11.8-15.4 [facility] Blood leukocytes automated c ount (number/volume)on 01-21-2021 WBC (Bld) [#/Vol] 13.2 10*3/uL 4.5-11.0 [facility] Body fluid albumin measureme nt (mass/volume)on 01-21-2021 Albumin (Body fld) [Mass/Vol] 3.7 g/dL 3.2-5.5 [facility] Creatinine and Glomerular fi ltration rate.predicted panel (S/P/Bld)on 01-21-2021 Creatinine [Mass/Vol] 0.67 mg/dL 0.44-1.03 [facility] Eosinophils Auto (Bld) [#/Vo l]on 01-21-2021 Eosinophils (Bld) [#/Vol] 0.1 10*3/uL 0.0-0.45 [facility] Eosinophils/100 WBC Auto (Bl d)on 01-21-2021 Eosinophils/100 WBC (Bld) 0.8 % [facility] Erythrocyte distribution wid th Auto (RBC) [Ratio]on 01-21-2021 Erythrocyte distribution width (RBC) [Ratio] 13.1 % 11.9-15.3 [facility] Estimated glomerular filtrat ion rate (GFR) non- Americanon 01-21-2021 GFR/1.73 sq M.predicted among non-blacks MDRD (S/P/Bld) [Vol rate/Area] > 60 mL/Min [facility] Globulin Calc (S) [Mass/Vol] on 01-21-2021 Globulin (S) [Mass/Vol] 2.7 g/dL F [facility] Hematocrit Auto (Bld) [Volum e fraction]on 01-21-2021 Hematocrit (Bld) [Volume fraction] 38.1 % 34.0-46.4 [facility] Laboratory - Chemistry and C hemistry - challengeon 01-21-2021 Cobalamin (Vitamin B12) [Mass/Vol] 341 pg/mL 180-914 [facility] Laboratory - Hematology and Cell countson 01-21-2021 Nucleated RBC/100 WBC (Bld) [Ratio] 0.2 % 0-0.5 [facility] Lymphocytes Auto (Bld) [#/Vo l]on 01-21-2021 Lymphocytes (Bld) [#/Vol] 3.9 10*3/uL 1.00-4.8 [facility] Lymphocytes/100 WBC Auto (Bl d)on 01-21-2021 Lymphocytes/100 WBC (Bld) 29.4 % [facility] MCH Auto (RBC) [Entitic mass ]on 01-21-2021 MCH (RBC) [Entitic mass] 30.6 pg 24.7-34.3 [facility] MCHC Auto (RBC) [Mass/Vol]on 01-21-2021 MCHC (RBC) [Mass/Vol] 34.1 g/dL 32.0-35.0 [facility] MCV Auto (RBC) [Entitic vol] on 01-21-2021 MCV (RBC) [Entitic vol] 89.6 fL 80-100 [facility] Monocytes Auto (Bld) [#/Vol] on 01-21-2021 Monocytes (Bld) [#/Vol] 1.1 10*3/uL 0.0-0.8 [facility] Monocytes/100 WBC Auto (Bld) on 01-21-2021 Monocytes/100 WBC (Bld) 8.6 % F [facility] Neutrophils Auto (Bld) [#/Vo l]on 01-21-2021 Neutrophils (Bld) [#/Vol] 8.0 10*3/uL 1.8-7.7 [facility] Neutrophils/100 WBC Auto (Bl d)on 01-21-2021 Neutrophils/100 WBC (Bld) 60.2 % [facility] No Panel Informationon 01-21 25-Hydroxy Vitamin D Total 25.5 ng/mL 30-100 [facility] Comment on above: VITAMIN D STATUS 25( [place])VITAMIN D RANGE (ng/mL) Deficient <20 Insufficient 20 to <30Sufficient 30 to 100Reference: Jovanni MF,Dominique NC, Gillian NINA, et al. Evaluation,treatment, and prevention of vitamin D deficiency; an Endocrine Society clinical practice guideline. JCEM. 2010; 96(7):1911-30. Estimated GFR () > 60 mL/Min [facility] Comment on above: GFR estimated refere nce range: According to KDOQI guidelines, <60 ml/min/1.73m2 is sufficient to diagnose a patient with chronic kidney disease. Pharmacy Creatinine Clearance (Chem N/A [facility] Valproic Acid (Depakene) Level 74.3 ug/mL 50.0-100.0 [facility] Comment on above: Last dose: - Platelet mean volume Auto (B ld) [Entitic vol]on 01-21-2021 Platelet mean volume (Bld) [Entitic vol] 9.1 fL 6.3-10.7 [facility] Platelets Auto (Bld) [#/Vol] on 01-21-2021 Platelets (Bld) [#/Vol] 261 10*3/uL 150-450 [facility] Protein [Mass/volume] in Ser um or Plasmaon 01-21-2021 Protein [Mass/Vol] 6.4 g/dL 6.1-7.9 [facility] RBC Auto (Bld) [#/Vol]on RBC (Bld) [#/Vol] 4.25 10*6/uL 3.60-5.00 [facility] Serum or plasma alanine george otransferase measurement without P-5'-P (enzymatic activion 01-21-2021 ALT No additional P-5'-P [Catalytic activity/Vol] 14 U/L 10-60 [facility] Serum or plasma albumin/glob ulin mass ratioon 01-21-2021 Albumin/Globulin [Mass ratio] 1.4 {ratio} [facility] Serum or plasma alkaline lalo sphatase measurement (enzymatic activity/volume)on 01-21-2021 ALP [Catalytic activity/Vol] 50 U/L 32-92 [facility] Serum or plasma aspartate am inotransferase measurement (enzymatic activity/volume)on 01-21-2021 AST [Catalytic activity/Vol] 17 U/L 10-42 [facility] Serum or plasma calcium ashwini urement (mass/volume)on 01-21-2021 Calcium [Mass/Vol] 9.5 mg/dL 8.2-10.2 [facility] Serum or plasma chloride jett surement (moles/volume)on 01-21-2021 Chloride [Moles/Vol] 96 mmol/L 95-114 [facility] Serum or plasma glucose ashwini urement (mass/volume)on 01-21-2021 Glucose [Mass/Vol] 117 mg/dL 70-100 [facility] Comment on above: ADA recommended refe rence rangeRandom Glucose Reference Range is dependent on time and content of last meal. Glucose of more than 200 mg/dL in a nonstressed, ambulatory subject supports the diagnosis of Diabetes Mellitus. Serum or plasma potassium me asurement (moles/volume)on 01-21-2021 Potassium [Moles/Vol] 4.3 mmol/L 3.5-5.1 [facility] Serum or plasma sodium measu rement (moles/volume)on 01-21-2021 Sodium [Moles/Vol] 132 mmol/L 136-146 [facility] Serum or plasma total biliru bin measurement (mass/volume)on 01-21-2021 Bilirubin [Mass/Vol] 0.3 mg/dL 0.3-1.2 [facility] Serum or plasma total carbon dioxide measurement (moles/volume)on 01-21-2021 CO2 [Moles/Vol] 23.6 mmol/L 22.0-30.0 [facility] Serum or plasma urea nitroge n measurement (mass/volume)on 01-21-2021 Urea nitrogen [Mass/Vol] 13 mg/dL 9-23 [facility] Albumin [Mass/volume] in Ser um or Plasmaon 11-05-2020 Albumin [Mass/Vol] 4.4 g/dL 3.2-5.5 [facility] Automated basophil %on 11-05 Basophils/100 WBC (Bld) 0.7 % [facility] Automated basophil counton 0 11-05-2020 Basophils (Bld) [#/Vol] 0.1 10*3/uL 0.0-0.2 [facility] Automated blood lymphocyte c ount (number/volume)on 11-05-2020 Lymphocytes (Bld) [#/Vol] 3.5 10*3/uL 1.00-4.8 [facility] Automated blood lymphocyte c ount as percentage of total leukocyteson 11-05-2020 Lymphocytes/100 WBC (Bld) 26.0 % [facility] Automated blood monocyte cou nton 11-05-2020 Monocytes (Bld) [#/Vol] 1.2 10*3/uL 0.0-0.8 [facility] Automated blood platelet cou nt (count/volume)on 11-05-2020 Platelets (Bld) [#/Vol] 317 10*3/uL 150-450 [facility] Automated blood platelet jett n volume measurementon 11-05-2020 Platelet mean volume (Bld) [Entitic vol] 8.2 fL 6.3-10.7 [facility] Automated eosinophil %on Eosinophils/100 WBC (Bld) 0.5 % [facility] Automated eosinophil counton 11-05-2020 Eosinophils (Bld) [#/Vol] 0.1 10*3/uL 0.0-0.45 [facility] Automated erythrocyte distri bution width ratioon 11-05-2020 Erythrocyte distribution width (RBC) [Ratio] 13.0 % 11.9-15.3 [facility] Automated erythrocyte mean c orpuscular hemoglobin (mass per erythrocyte)on 11-05-2020 MCH (RBC) [Entitic mass] 30.2 pg 24.7-34.3 [facility] Automated erythrocyte mean c orpuscular hemoglobin concentration measurement (mass/volon 11-05-2020 MCHC (RBC) [Mass/Vol] 33.9 g/dL 32.0-35.0 [facility] Automated erythrocyte mean c orpuscular volumeon 11-05-2020 MCV (RBC) [Entitic vol] 89.1 fL 80-100 [facility] Automated monocyte %on 11-05 Monocytes/100 WBC (Bld) 8.8 % [facility] Automated neutrophil %on Neutrophils/100 WBC (Bld) 64.0 % [facility] Blood erythrocytes automated count (number/volume)on 11-05-2020 RBC (Bld) [#/Vol] 4.92 10*6/uL 3.60-5.00 [facility] Blood hemoglobin measurement (mass/volume)on 11-05-2020 Hemoglobin (Bld) [Mass/Vol] 14.9 g/dL 11.8-15.4 [facility] Blood leukocytes automated c ount (number/volume)on 11-05-2020 WBC (Bld) [#/Vol] 13.4 10*3/uL 4.5-11.0 [facility] Blood neutrophil count by au tomated method (number/volume)on 11-05-2020 Neutrophils (Bld) [#/Vol] 8.6 10*3/uL 1.8-7.7 [facility] Estimated glomerular filtrat ion rate (GFR) non- Americanon 11-05-2020 GFR/1.73 sq M predicted among non-blacks MDRD (S/P/Bld) [Vol rate/Area] mL/min/{1.73_m2} [facility] Hematocrit [Volume Fraction] of Blood by Automated counton 11-05-2020 Hematocrit (Bld) [Volume fraction] 43.8 % 34.0-46.4 [facility] Otheron 11-05-2020 GFR/1.73 sq M.predicted MDRD (S/P/Bld) [Vol rate/Area] mL/min/{1.73_m2} [facility] Comment on above: GFR estimated refere nce range: According to KDOQI guidelines, <60 ml/min/1.73m2 is sufficient to diagnose a patient with chronic kidney disease. Nucleated RBC/100 WBC (Bld) [Ratio] 0.2 % 0-0.5 [facility] Creatinine Clearance (Chem N/A [facility] Protein [Mass/volume] in Ser um or Plasmaon 11-05-2020 Protein [Mass/Vol] 7.2 g/dL 6.1-7.9 [facility] Serum globulin measurement b y calculation (mass/volume)on 11-05-2020 Globulin (S) [Mass/Vol] 2.8 g/dL [facility] Serum glutamate decarboxylas e 65 antibody assay (units/volume)on 11-05-2020 Glutamate decarboxylase 65 Ab Qn (S) <5.0 U/mL [facility] Comment on above: Performed at: [facility] [address] [id number] Director: Ana Lee MD, Phone: [phone] Serum nuclear antibody titer on 11-05-2020 Nuclear Ab (S) [Titer] Negative [facility] Comment on above: Negative <1:80 Borde rline 1:80 Positive >1:80Performed at: [facility] [id number] [place], [place] [id number] Director: Daniel Wen PhD, Phone: [phone] Nuclear Ab (S) [Titer] Negative [facility] Comment on above: Negative <1:80 Borde rline 1:80 Positive >1:80Performed at: [facility] [id number] [place], [place] [id number] Director: Daniel Wen PhD, Phone: [phone] Serum or plasma alanine george otransferase measurement without P-5'-P (enzymatic activion 11-05-2020 ALT No additional P-5'-P [Catalytic activity/Vol] 22 U/L 10-60 [facility] Serum or plasma albumin/glob ulin mass ratioon 11-05-2020 Albumin/Globulin [Mass ratio] 1.6 {ratio} [facility] Serum or plasma alkaline lalo sphatase measurement (enzymatic activity/volume)on 11-05-2020 ALP [Catalytic activity/Vol] 60 U/L 32-92 [facility] Serum or plasma aspartate am inotransferase measurement (enzymatic activity/volume)on 11-05-2020 AST [Catalytic activity/Vol] 23 U/L 10-42 [facility] Serum or plasma calcium ashwini urement (mass/volume)on 11-05-2020 Calcium [Mass/Vol] 9.6 mg/dL 8.2-10.2 [facility] Serum or plasma chloride jett surement (moles/volume)on 11-05-2020 Chloride [Moles/Vol] 93 mmol/L 95-114 [facility] Serum or plasma creatinine m easurement with calculation of estimated glomerular filtron 11-05-2020 Creatinine [Mass/Vol] 0.62 mg/dL 0.44-1.03 [facility] Serum or plasma glucose ashwini urement (mass/volume)on 11-05-2020 Glucose [Mass/Vol] 82 mg/dL 70-100 [facility] Comment on above: ADA recommended refe rence rangeRandom Glucose Reference Range is dependent on time and content of last meal. Glucose of more than 200 mg/dL in a nonstressed, ambulatory subject supports the diagnosis of Diabetes Mellitus. Serum or plasma potassium me asurement (moles/volume)on 11-05-2020 Potassium [Moles/Vol] 4.3 mmol/L 3.5-5.1 [facility] Serum or plasma sodium measu rement (moles/volume)on 11-05-2020 Sodium [Moles/Vol] 128 mmol/L 136-146 [facility] Serum or plasma total biliru bin measurement (mass/volume)on 11-05-2020 Bilirubin [Mass/Vol] 0.6 mg/dL 0.3-1.2 [facility] Serum or plasma total carbon dioxide measurement (moles/volume)on 11-05-2020 CO2 [Moles/Vol] 22.8 mmol/L 22.0-30.0 [facility] Serum or plasma urea nitroge n measurement (mass/volume)on 11-05-2020 Urea nitrogen [Mass/Vol] 10 mg/dL 9-23 [facility] Automated basophil %on 10-22 Basophils/100 WBC (Bld) 0.6 % [facility] Automated basophil counton 0 10-22-2020 Basophils (Bld) [#/Vol] 0.1 10*3/uL 0.0-0.2 [facility] Automated blood lymphocyte c ount (number/volume)on 10-22-2020 Lymphocytes (Bld) [#/Vol] 2.8 10*3/uL 1.00-4.8 [facility] Automated blood lymphocyte c ount as percentage of total leukocyteson 10-22-2020 Lymphocytes/100 WBC (Bld) 23.6 % [facility] Automated blood monocyte cou nton 10-22-2020 Monocytes (Bld) [#/Vol] 1.0 10*3/uL 0.0-0.8 [facility] Automated blood platelet cou nt (count/volume)on 10-22-2020 Platelets (Bld) [#/Vol] 292 10*3/uL 150-450 [facility] Automated blood platelet jett n volume measurementon 10-22-2020 Platelet mean volume (Bld) [Entitic vol] 9.4 fL 6.3-10.7 [facility] Automated eosinophil %on Eosinophils/100 WBC (Bld) 0.5 % [facility] Automated eosinophil counton 10-22-2020 Eosinophils (Bld) [#/Vol] 0.1 10*3/uL 0.0-0.45 [facility] Automated erythrocyte distri bution width ratioon 10-22-2020 Erythrocyte distribution width (RBC) [Ratio] 12.8 % 11.9-15.3 [facility] Automated erythrocyte mean c orpuscular hemoglobin (mass per erythrocyte)on 10-22-2020 MCH (RBC) [Entitic mass] 29.5 pg 24.7-34.3 [facility] Automated erythrocyte mean c orpuscular hemoglobin concentration measurement (mass/volon 10-22-2020 MCHC (RBC) [Mass/Vol] 32.9 g/dL 32.0-35.0 [facility] Automated erythrocyte mean c orpuscular volumeon 10-22-2020 MCV (RBC) [Entitic vol] 89.6 fL 80-100 [facility] Automated monocyte %on 10-22 Monocytes/100 WBC (Bld) 8.7 % [facility] Automated neutrophil %on Neutrophils/100 WBC (Bld) 66.6 % [facility] Blood erythrocytes automated count (number/volume)on 10-22-2020 RBC (Bld) [#/Vol] 4.90 10*6/uL 3.60-5.00 [facility] Blood hemoglobin measurement (mass/volume)on 10-22-2020 Hemoglobin (Bld) [Mass/Vol] 14.5 g/dL 11.8-15.4 [facility] Blood leukocytes automated c ount (number/volume)on 10-22-2020 WBC (Bld) [#/Vol] 12.1 10*3/uL 3.8-11.6 [facility] Blood neutrophil count by au tomated method (number/volume)on 10-22-2020 Neutrophils (Bld) [#/Vol] 8.0 10*3/uL 1.8-7.7 [facility] Body fluid albumin measureme nt (mass/volume)on 10-22-2020 Albumin (Body fld) [Mass/Vol] 4.2 g/dL 3.2-5.5 [facility] Estimated glomerular filtrat ion rate (GFR) non- Americanon 10-22-2020 GFR/1.73 sq M predicted among non-blacks MDRD (S/P/Bld) [Vol rate/Area] mL/min/{1.73_m2} [facility] Hematocrit [Volume Fraction] of Blood by Automated counton 10-22-2020 Hematocrit (Bld) [Volume fraction] 43.9 % 34.0-46.4 [facility] Hematologyon 10-22-2020 Platelets (Bld) [#/Vol] Normal Normal [facility] Otheron 10-22-2020 25-Hydroxy Vitamin D Total 13.3 ng/mL 30-100 [facility] Comment on above: VITAMIN D STATUS 25( [place])VITAMIN D RANGE (ng/mL) Deficient <20 Insufficient 20 to <30Sufficient 30 to 100Reference: Jovanni MF,Dominique NC, Gillian NINA, et al. Evaluation,treatment, and prevention of vitamin D deficiency; an Endocrine Society clinical practice guideline. JCEM. 2010; 96(7):1911-30. Cobalamin (Vitamin B12) [Mass/Vol] 438 pg/mL 180-914 [facility] GFR/1.73 sq M.predicted MDRD (S/P/Bld) [Vol rate/Area] mL/min/{1.73_m2} [facility] Comment on above: GFR estimated refere nce range: According to KDOQI guidelines, <60 ml/min/1.73m2 is sufficient to diagnose a patient with chronic kidney disease. Nucleated RBC/100 WBC (Bld) [Ratio] 0.0 % 0-0.5 [facility] Creatinine Clearance (Chem N/A [facility] Platelet Morphology Comment Normal Normal [facility] Valproic Acid (Depakene) Level 108.9 ug/mL 50.0-100.0 [facility] Comment on above: Last dose: - Protein [Mass/volume] in Ser um or Plasmaon 10-22-2020 Protein [Mass/Vol] 7.1 g/dL 6.1-7.9 [facility] RBC morphologyon 10-22-2020 RBC morphology finding Nom (Bld) Normal [facility] Serum globulin measurement b y calculation (mass/volume)on 10-22-2020 Globulin (S) [Mass/Vol] 2.9 g/dL [facility] Serum or plasma alanine george otransferase measurement without P-5'-P (enzymatic activion 10-22-2020 ALT No additional P-5'-P [Catalytic activity/Vol] 13 U/L 10-60 [facility] Serum or plasma albumin/glob ulin mass ratioon 10-22-2020 Albumin/Globulin [Mass ratio] 1.4 {ratio} [facility] Serum or plasma alkaline lalo sphatase measurement (enzymatic activity/volume)on 10-22-2020 ALP [Catalytic activity/Vol] 53 U/L 32-92 [facility] Serum or plasma aspartate am inotransferase measurement (enzymatic activity/volume)on 10-22-2020 AST [Catalytic activity/Vol] 15 U/L 10-42 [facility] Serum or plasma calcium ashwini urement (mass/volume)on 10-22-2020 Calcium [Mass/Vol] 9.6 mg/dL 8.2-10.2 [facility] Serum or plasma chloride jett surement (moles/volume)on 10-22-2020 Chloride [Moles/Vol] 96 mmol/L 95-114 [facility] Serum or plasma creatinine m easurement with calculation of estimated glomerular filtron 10-22-2020 Creatinine [Mass/Vol] 0.54 mg/dL 0.44-1.03 [facility] Serum or plasma glucose ashwini urement (mass/volume)on 10-22-2020 Glucose [Mass/Vol] 96 mg/dL 70-100 [facility] Comment on above: ADA recommended refe rence rangeRandom Glucose Reference Range is dependent on time and content of last meal. Glucose of more than 200 mg/dL in a nonstressed, ambulatory subject supports the diagnosis of Diabetes Mellitus. Serum or plasma potassium me asurement (moles/volume)on 10-22-2020 Potassium [Moles/Vol] 4.7 mmol/L 3.5-5.1 [facility] Serum or plasma sodium measu rement (moles/volume)on 10-22-2020 Sodium [Moles/Vol] 130 mmol/L 136-146 [facility] Serum or plasma total biliru bin measurement (mass/volume)on 10-22-2020 Bilirubin [Mass/Vol] 0.3 mg/dL 0.3-1.2 [facility] Serum or plasma total carbon dioxide measurement (moles/volume)on 10-22-2020 CO2 [Moles/Vol] 22.5 mmol/L 22.0-30.0 [facility] Serum or plasma urea nitroge n measurement (mass/volume)on 10-22-2020 Urea nitrogen [Mass/Vol] 5 mg/dL 9-23 [facility] Automated basophil %on 09-23 Basophils/100 WBC (Bld) 0.7 % [facility] Automated basophil counton 1 11-24-2019 Basophils (Bld) [#/Vol] 0.1 10*3/uL 0.0-0.2 [facility] Automated blood lymphocyte c ount (number/volume)on 09-23-2020 Lymphocytes (Bld) [#/Vol] 3.3 10*3/uL 1.00-4.8 [facility] Automated blood lymphocyte c ount as percentage of total leukocyteson 09-23-2020 Lymphocytes/100 WBC (Bld) 27.3 % [facility] Automated blood monocyte cou nton 09-23-2020 Monocytes (Bld) [#/Vol] 1.3 10*3/uL 0.0-0.8 [facility] Automated blood platelet cou nt (count/volume)on 09-23-2020 Platelets (Bld) [#/Vol] 299 10*3/uL 150-450 [facility] Automated blood platelet jett n volume measurementon 09-23-2020 Platelet mean volume (Bld) [Entitic vol] 8.3 fL 6.3-10.7 [facility] Automated eosinophil %on Eosinophils/100 WBC (Bld) 0.7 % [facility] Automated eosinophil counton 09-23-2020 Eosinophils (Bld) [#/Vol] 0.1 10*3/uL 0.0-0.45 [facility] Automated erythrocyte distri bution width ratioon 09-23-2020 Erythrocyte distribution width (RBC) [Ratio] 12.8 % 11.9-15.3 [facility] Automated erythrocyte mean c orpuscular hemoglobin (mass per erythrocyte)on 09-23-2020 MCH (RBC) [Entitic mass] 29.8 pg 24.7-34.3 [facility] Automated erythrocyte mean c orpuscular hemoglobin concentration measurement (mass/volon 09-23-2020 MCHC (RBC) [Mass/Vol] 33.4 g/dL 32.0-35.0 [facility] Automated erythrocyte mean c orpuscular volumeon 09-23-2020 MCV (RBC) [Entitic vol] 89.3 fL 80-100 [facility] Automated monocyte %on 09-23 Monocytes/100 WBC (Bld) 10.8 % [facility] Automated neutrophil %on Neutrophils/100 WBC (Bld) 60.5 % [facility] Blood erythrocytes automated count (number/volume)on 09-23-2020 RBC (Bld) [#/Vol] 4.72 10*6/uL 3.60-5.00 [facility] Blood hemoglobin measurement (mass/volume)on 09-23-2020 Hemoglobin (Bld) [Mass/Vol] 14.1 g/dL 11.8-15.4 [facility] Blood leukocytes automated c ount (number/volume)on 09-23-2020 WBC (Bld) [#/Vol] 11.9 10*3/uL 3.8-11.6 [facility] Blood neutrophil count by au tomated method (number/volume)on 09-23-2020 Neutrophils (Bld) [#/Vol] 7.2 10*3/uL 1.8-7.7 [facility] Body fluid albumin measureme nt (mass/volume)on 09-23-2020 Albumin (Body fld) [Mass/Vol] 3.9 g/dL 3.2-5.5 [facility] Estimated glomerular filtrat ion rate (GFR) non- Americanon 09-23-2020 GFR/1.73 sq M predicted among non-blacks MDRD (S/P/Bld) [Vol rate/Area] mL/min/{1.73_m2} [facility] Hematocrit [Volume Fraction] of Blood by Automated counton 09-23-2020 Hematocrit (Bld) [Volume fraction] 42.1 % 34.0-46.4 [facility] Otheron 09-23-2020 25-Hydroxy Vitamin D Total 17.0 ng/mL 30-100 [facility] Comment on above: VITAMIN D STATUS 25( [place])VITAMIN D RANGE (ng/mL) Deficient <20 Insufficient 20 to <30Sufficient 30 to 100Reference: Jovanni ENCINAS,Dominique NC, Gillian NINA, et al. Evaluation,treatment, and prevention of vitamin D deficiency; an Endocrine Society clinical practice guideline. JCEM. 2010; 96(7):1911-30. GFR/1.73 sq M.predicted MDRD (S/P/Bld) [Vol rate/Area] mL/min/{1.73_m2} [facility] Comment on above: GFR estimated refere nce range: According to KDOQI guidelines, <60 ml/min/1.73m2 is sufficient to diagnose a patient with chronic kidney disease. Nucleated RBC/100 WBC (Bld) [Ratio] 0.1 % 0-0.5 [facility] Creatinine Clearance (Chem N/A [facility] Valproic Acid (Depakene) Level 45.9 ug/mL 50.0-100.0 [facility] Comment on above: Last dose: - Protein [Mass/volume] in Ser um or Plasmaon 09-23-2020 Protein [Mass/Vol] 6.7 g/dL 6.1-7.9 [facility] Serum globulin measurement b y calculation (mass/volume)on 09-23-2020 Globulin (S) [Mass/Vol] 2.8 g/dL [facility] Serum or plasma alanine george otransferase measurement without P-5'-P (enzymatic activion 09-23-2020 ALT No additional P-5'-P [Catalytic activity/Vol] 15 U/L 10-60 [facility] Serum or plasma albumin/glob ulin mass ratioon 09-23-2020 Albumin/Globulin [Mass ratio] 1.4 {ratio} [facility] Serum or plasma alkaline lalo sphatase measurement (enzymatic activity/volume)on 09-23-2020 ALP [Catalytic activity/Vol] 52 U/L 32-92 [facility] Serum or plasma aspartate am inotransferase measurement (enzymatic activity/volume)on 09-23-2020 AST [Catalytic activity/Vol] 16 U/L 10-42 [facility] Serum or plasma calcium ashwini urement (mass/volume)on 09-23-2020 Calcium [Mass/Vol] 9.2 mg/dL 8.2-10.2 [facility] Serum or plasma chloride jett surement (moles/volume)on 09-23-2020 Chloride [Moles/Vol] 102 mmol/L 95-114 [facility] Serum or plasma creatinine m easurement with calculation of estimated glomerular filtron 09-23-2020 Creatinine [Mass/Vol] 0.67 mg/dL 0.44-1.03 [facility] Serum or plasma glucose ashwini urement (mass/volume)on 09-23-2020 Glucose [Mass/Vol] 122 mg/dL 70-100 [facility] Comment on above: ADA recommended refe rence rangeRandom Glucose Reference Range is dependent on time and content of last meal. Glucose of more than 200 mg/dL in a nonstressed, ambulatory subject supports the diagnosis of Diabetes Mellitus. Serum or plasma potassium me asurement (moles/volume)on 09-23-2020 Potassium [Moles/Vol] 4.8 mmol/L 3.5-5.1 [facility] Serum or plasma sodium measu rement (moles/volume)on 09-23-2020 Sodium [Moles/Vol] 136 mmol/L 136-146 [facility] Serum or plasma total biliru bin measurement (mass/volume)on 09-23-2020 Bilirubin [Mass/Vol] 0.2 mg/dL 0.3-1.2 [facility] Serum or plasma total carbon dioxide measurement (moles/volume)on 09-23-2020 CO2 [Moles/Vol] 23.0 mmol/L 22.0-30.0 [facility] Serum or plasma urea nitroge n measurement (mass/volume)on 09-23-2020 Urea nitrogen [Mass/Vol] 5 mg/dL 06-26 [facility] Lab - Other Lab [facility] - Other Lab Results [id number] Normal [facility] Coding Summaryon 06-27-2019 Coding Summary CODING DATE: 019 [facility] STATUS: Home PAYOR: Medicaid HMO ADMIT [...] Piña Revised Date Saved: 06/27/2019 12:43 pm [facility] Provider Orderson 06-27-2019 Provider Orders [id number][id number] [id number][facility] 1on 06-26-2019 Auto [place] % 9 % Normal -12 [facility] Comment on above: Performed By: #### 1 [id number] #### [facility] (DEFAULT) [address] [place] [address]114 Baso Abs# 0.0 x10 Normal 0.0-0.2 [facility] Comment on above: Performed By: #### 1 [id number] #### [facility] (DEFAULT) [address] [place] [address] 75529 Basophils/100 WBC (Bld) 0.3 % Normal 0.2-2.0 [facility] Comment on above: Performed By: #### 1 [id number] #### [facility] (DEFAULT) [address] [place] [address] 77578 Eos Abs# 0.0 x10 Normal 0.0-0.4 [facility] Comment on above: Performed By: #### 1 [id number] #### [facility] (DEFAULT) [address] [place] [address] 84974 Eosinophils/100 WBC (Bld) 0.4 % Low 0.9-4.0 [facility] Comment on above: Performed By: #### 1 [id number] #### [facility] (DEFAULT) [address] [place] [address] 80304 Lymphocytes (Bld) [#/Vol] 3.7 x10 High 1.3-2.9 [facility] Comment on above: Performed By: #### 1 [id number] #### [facility] (DEFAULT) [address] [place] [address] 22232 Lymphocytes/100 WBC (Bld) 29 % Normal 14-48 [facility] Comment on above: Performed By: #### 1 [id number] #### [facility] (DEFAULT) [address] [place] [address] 33364 [place] Abs# 1.2 x10 High 0.0-0.8 [facility] Comment on above: Performed By: #### 1 [id number] #### [facility] (DEFAULT) [address] [place] [address] 67320 Neut Abs# 7.7 x10 Normal 1.5-9.2 [facility] Comment on above: Performed By: #### 1 [id number], [id number] #### [facility] (DEFAULT) [address] [place] [address] 77313 Neutrophils/100 WBC (Bld) 61 % Normal 44-88 [facility] Comment on above: Performed By: #### 1 [id number] #### [facility] (DEFAULT) [address] [place] [address] 28494 CBC w/ Auto Diffon 9 Erythrocyte distribution width (RBC) [Ratio] 14.0 % Normal 11.5-15.0 [facility] Comment on above: Performed By: #### 1 [id number], [id number] #### [facility] (DEFAULT) [address] [place] [address] 13180 Hematocrit (Bld) [Volume fraction] 44.8 % High 33.7-40.4 [facility] Comment on above: Performed By: #### 1 [id number], [id number] #### [facility] (DEFAULT) [address] [place] [address] 63516 Hemoglobin (Bld) [Mass/Vol] 15.1 g/dL Normal 11.3-15.9 [facility] Comment on above: Performed By: #### 1 [id number], [id number] #### [facility] (DEFAULT) [address] [place] [address] 42210 Man Diff? Auto Normal [facility] Comment on above: Performed By: #### 1 [id number], [id number] #### [facility] (DEFAULT) [address] [place] [address] 09027 MCH (RBC) [Entitic mass] 30 pg Normal 24-34 [facility] Comment on above: Performed By: #### 1 [id number] #### [facility] (DEFAULT) [address] [place] [address] 49667 MCHC (RBC) [Mass/Vol] 34 g/dL Normal 26-37 [facility] Comment on above: Performed By: #### 1 [id number], [id number] #### [facility] (DEFAULT) [address] [place] [address] 96972 MCV (RBC) [Entitic vol] 89 fL Normal 81-100 [facility] Comment on above: Performed By: #### 1 [id number], [id number] #### [facility] (DEFAULT) [address] [place] [address] 55119 Platelet mean volume (Bld) [Entitic vol] 9.5 fL Normal 6.3-10.2 [facility] Comment on above: Performed By: #### 1 [id number], [id number] #### [facility] (DEFAULT) [address] [place] [address] 92004 Platelets (Bld) [#/Vol] 301 x10 Normal 138-427 [facility] [facility] Comment on above: Performed By: #### [id number] #### [facility] (DEFAULT) [address] [place] [address] [id number] RBC (Bld) [#/Vol] 5.04 x10 Normal 3.70-5.30 [facility] Comment on above: Performed By: #### [id number] #### [facility] (DEFAULT) [address] [place] [address] [id number] WBC (Bld) [#/Vol] 12.6 x10 [facility] Comment on above: Performed By: #### [id number] #### [facility] (DEFAULT) [address] [place] [address] Lab - Other Lab [facility] Lab - Other Lab Results [id number]#1.00OTGTIFF Normal [facility] Outside Recordson 05-16-2019 Outside Records [id number]#1.00OTGTIFF Normal [facility] Outside Records [id number][facility] Date Time Vital Sign Value Performing Clinician Facility 03-16-2024 09:55-0400 Diastolic blood pressure 87 mm[Hg] PROFESS[employer]ERC[employer] Ajit Spasic Work Phone: [facility] 03-16-2024 09:55-0400 Heart rate 66 /min PROFESS[employer] Ajit Spasic Work Phone: [facility] 03-16-2024 09:55-0400 Respiratory rate 20 /min PROFESS[employer] Ajit Spasic Work Phone: [facility] 03-16-2024 09:55-0400 SaO2% (BldA) [Mass fraction] 99 % PROFESS[employer]ERC[employer] Ajit Spasic Work Phone: [facility] 03-16-2024 09:55-0400 Systolic blood pressure 138 mm[Hg] PROFESS[employer]ERC[employer] Ajit Spasic Work Phone: [facility] 03-16-2024 07:01-0400 Body height 166.37 cm PROFESS[employer] Ajit Spasic Work Phone: [facility] 03-16-2024 07:01-0400 Body temperature 98.3 [degF] PROFESS[employer]ERC[employer] Ajit Spasic Work Phone: [facility] 03-16-2024 07:01-0400 Body weight 69.85 kg PROFESS[employer] Ajit Spasic Work Phone: [facility] 03-08-2024 14:14-0400 Diastolic blood pressure 70 mm[Hg] PROFESS[employer]ERC[employer] Ajit Spasic Work Phone: [facility] 03-08-2024 14:14-0400 Heart rate 95 /min PROFESS[employer] Ajit Spasic Work Phone: [facility] 03-08-2024 14:14-0400 SaO2% (BldA) [Mass fraction] 99 % PROFESSOR [employer]ERC[employer] Ajit Spasic Work Phone: [facility] 03-08-2024 14:14-0400 Systolic blood pressure 122 mm[Hg] PROFESS[employer]ERC[employer] Ajit Spasic Work Phone: [facility] 03-01-2024 12:19-0400 Diastolic blood pressure 75 mm[Hg] PROFESSOR [employer]ERC[employer] Ajit Spasic Work Phone: [facility] 03-01-2024 12:19-0400 Heart rate 69 /min PROFESS[employer] Ajit Spasic Work Phone: [facility] 03-01-2024 12:19-0400 Inhaled oxygen flow rate 3 L/min PROFESS[employer] Ajit Spasic Work Phone: [facility] 03-01-2024 12:19-0400 SaO2% (BldA) [Mass fraction] 100 % PROFESSOR [employer] EXERCISE [employer]ENCE[employer] Ajit Spasic Work Phone: [facility] 03-01-2024 12:19-0400 Systolic blood pressure 130 mm[Hg] PROFESSOR [employer]ERCISE [employer]ENCE[employer] Ajit Spasic Work Phone: [facility] 03-01-2024 12:13-0400 Respiratory rate 18 /min PROFESS[employer]ERC[employer] Ajit Spasic Work Phone: [facility] 03-01-2024 09:54-0400 Body height 166.37 cm PROFESSOR [employer]ERC[employer] Ajit Spasic Work Phone: [facility] 03-01-2024 09:54-0400 Body weight 69.85 kg PROFESSOR [employer]ERC[employer] Ajit Spasic Work Phone: [facility] 02-21-2024 10:41-0400 Body weight 69.11 kg PROFESSOR [employer]ERCISE [employer]ENCE-[employer] Ajit Spasic Work Phone: [facility] 02-21-2024 10:41-0400 Diastolic blood pressure 80 mm[Hg] PROFESSOR [employer]ERCISE [employer]ENCE[employer] Ajit Spasic Work Phone: [facility] 02-21-2024 10:41-0400 Systolic blood pressure 124 mm[Hg] PROFESSOR [employer]ERCISE [employer]ENCE-[employer] Ajit Spasic Work Phone: [facility] 10-16-2023 13:00-0500 Diastolic blood pressure 94 mm[Hg] PROFESSOR [employer]ERCISE [employer] Ajit Spasic Work Phone: [facility] 10-16-2023 13:00-0500 Heart rate 70 /min PROFESSOR [employer]ERC[employer]ENCE-[employer] Ajit Spasic Work Phone: [facility] 10-16-2023 13:00-0500 Respiratory rate 16 /min PROFESSOR [employer]ERC[employer] Ajit Spasic Work Phone: [facility] 10-16-2023 13:00-0500 SaO2% (BldA) [Mass fraction] 97 % PROFESSOR [employer] EXERCISE SCIENCE-C Ajit Spasic Work Phone: [facility] 10-16-2023 13:00-0500 Systolic blood pressure 168 mm[Hg] PROFESSOR [employer] EXERCISE SCIENCE-[employer] Ajit Spasic Work Phone: [facility] 10-16-2023 09:33-0500 Body height 165.1 cm PROFESSOR OF EXERCISE SCIENCE-C Ajit Spasic Work Phone: [facility] 10-16-2023 09:33-0500 Body temperature 97.4 [degF] PROFESSOR [employer]ERCISE [employer]ENCE-[employer] Ajit Spasic Work Phone: [facility] 10-16-2023 09:33-0500 Body weight 77.3 kg PROFESSOR [employer]ERCISE [employer]ENCE-[employer] Ajit Spasic Work Phone: [facility] 10-09-2023 16:00-0500 Body temperature 97.7 [degF] PROFESSOR [employer]ERCISE [employer]ENCE-[employer] Ajit Spasic Work Phone: [facility] 10-09-2023 16:00-0500 Diastolic blood pressure 80 mm[Hg] PROFESSOR OF EXERCISE SCIENCE-[employer] Ajit Spasic Work Phone: [facility] 10-09-2023 16:00-0500 Heart rate 85 /min PROFESSOR [employer]ERCISE [employer] Ajit Spasic Work Phone: [facility] 10-09-2023 16:00-0500 Respiratory rate 18 /min PROFESSOR [employer]ERCISE [employer]ENCE-[employer] Ajit Spasic Work Phone: [facility] 10-09-2023 16:00-0500 SaO2% (BldA) [Mass fraction] 99 % PROFESSOR [employer]ERCISE [employer]ENCE-[employer] Ajit Spasic Work Phone: [facility] 10-09-2023 16:00-0500 Systolic blood pressure 117 mm[Hg] PROFESSOR OF EXERCISE SCIENCE-C Ajit Spasic Work Phone: [facility] 10-08-2023 01:12-0500 Body height 165.1 cm PROFESSOR [employer] EXERCISE [employer]ENCE-[employer] Ajit Spasic Work Phone: [facility] 10-08-2023 01:12-0500 Body weight 76.65 kg PROFESSOR [employer] EXERCISE [employer]ENCE-[employer] Ajit Spasic Work Phone: [facility] 09-28-2023 13:30-0500 Diastolic blood pressure 87 mm[Hg] PROFESSOR OF EXERCISE SCIENCE-C Ajit Spasic Work Phone: [facility] 09-28-2023 13:30-0500 Heart rate 94 /min PROFESSOR [employer] EXERCISE SCIENCE-C Ajit Spasic Work Phone: [facility] 09-28-2023 13:30-0500 Respiratory rate 18 /min PROFESSOR [employer] EXERCISE [employer]ENCE-C Ajit Spasic Work Phone: [facility] 09-28-2023 13:30-0500 SaO2% (BldA) [Mass fraction] 94 % PROFESSOR OF EXERCISE SCIENCE-C Ajit Spasic Work Phone: [facility] 09-28-2023 13:30-0500 Systolic blood pressure 131 mm[Hg] PROFESSOR [employer] EXERCISE SCIENCE-C Ajit Spasic Work Phone: [facility] 09-28-2023 09:30-0500 Body temperature 97.9 [degF] PROFESSOR OF EXERCISE SCIENCE-C Ajit Spasic Work Phone: [facility] 09-28-2023 08:51-0500 Inhaled oxygen flow rate 10 L/min PROFESSOR [employer]ERC[employer]ENCE-[employer] Ajit Spasic Work Phone: [facility] 09-28-2023 07:20-0500 Body height 166.37 cm PROFESSOR [employer] EXERCISE [employer]ENCE-C Ajit Spasic Work Phone: [facility] 09-28-2023 07:20-0500 Body mass index (BMI) [Ratio] 27.7 kg/m2 PROFESSOR [employer]ERC[employer] Ajit Spasic Work Phone: [facility] 09-28-2023 07:20-0500 Body weight 76.7 kg PROFESSOR OF EXERCISE SCIENCE-C Ajit Spasic Work Phone: [facility] 07-13-2023 13:55-0400 Diastolic blood pressure 93 mm[Hg] NA [employer] Work Phone: [facility] 07-13-2023 13:55-0400 Heart rate 87 /min NA [employer] Work Phone: [facility] 07-13-2023 13:55-0400 Respiratory rate 16 /min NA [employer] Work Phone: [facility] 07-13-2023 13:55-0400 SaO2% (BldA) [Mass fraction] 96 % NA [employer] Work Phone: [facility] 07-13-2023 13:55-0400 Systolic blood pressure 133 mm[Hg] NA [employer] Work Phone: [facility] 07-13-2023 13:16-0400 Body temperature 98 [degF] NA [employer] Work Phone: [facility] 07-13-2023 12:51-0400 Inhaled oxygen flow rate 10 L/min NA [employer] Work Phone: [facility] 07-13-2023 12:17-0400 Body height 165.1 cm NA [employer] Work Phone: [facility] 07-13-2023 12:17-0400 Body mass index (BMI) [Ratio] 28.2 kg/m2 NA [employer] Work Phone: [facility] 07-13-2023 12:17-0400 Body weight 77 kg NA [employer] Work Phone: [facility] 05-05-2023 10:18-0400 Diastolic blood pressure 90 mm[Hg] PROFESSOR [employer] EXERCISE SCIENCE-C Ajit Spasic Work Phone: [facility] 05-05-2023 10:18-0400 Heart rate 82 /min PROFESSOR [employer] EXERCISE [employer]ENCE-C Ajit Spasic Work Phone: [facility] 05-05-2023 10:18-0400 Respiratory rate 18 /min PROFESSOR [employer] EXERCISE [employer]ENCE-C Ajit Spasic Work Phone: [facility] 05-05-2023 10:18-0400 SaO2% (BldA) [Mass fraction] 98 % PROFESSOR OF EXERCISE SCIENCE-C Ajit Spasic Work Phone: [facility] 05-05-2023 10:18-0400 Systolic blood pressure 130 mm[Hg] PROFESSOR OF EXERCISE SCIENCE-C Ajit Spasic Work Phone: [facility] 05-05-2023 09:39-0400 Inhaled oxygen flow rate 3 L/min PROFESSOR [employer] EXERCISE [employer]ENCE-C Ajit Spasic Work Phone: [facility] 05-05-2023 08:43-0400 Body height 165.1 cm PROFESSOR [employer] EXERCISE SCIENCE-C Ajit Spasic Work Phone: [facility] 05-05-2023 08:43-0400 Body weight 74.84 kg PROFESSOR [employer] EXERCISE SCIENCE-C Ajit Spasic Work Phone: [facility] 04-14-2023 12:08-0400 Diastolic blood pressure 89 mm[Hg] PROFESSOR OF EXERCISE SCIENCE-C Ajit Spasic Work Phone: [facility] 04-14-2023 12:08-0400 Heart rate 71 /min PROFESSOR [employer] EXERCISE [employer]ENCE-C Ajit Spasic Work Phone: [facility] 04-14-2023 12:08-0400 Respiratory rate 16 /min PROFESSOR [employer] EXERCISE SCIENCE-C Ajit Spasic Work Phone: [facility] 04-14-2023 12:08-0400 SaO2% (BldA) [Mass fraction] 97 % PROFESSOR OF EXERCISE SCIENCE-C Ajit Spasic Work Phone: [facility] 04-14-2023 12:08-0400 Systolic blood pressure 124 mm[Hg] PROFESSOR [employer] EXERCISE SCIENCE-C Ajit Spasic Work Phone: [facility] 04-14-2023 11:29-0400 Inhaled oxygen flow rate 3 L/min PROFESSOR [employer] EXERCISE SCIENCE-C Ajit Spasic Work Phone: [facility] 04-14-2023 10:19-0400 Body height 165.1 cm PROFESSOR [employer] EXERCISE SCIENCE-C Ajit Spasic Work Phone: [facility] 04-14-2023 10:19-0400 Body weight 74.84 kg PROFESSOR [employer] EXERCISE [employer]ENCE-C Ajit Spasic Work Phone: [facility] 04-02-2023 11:30-0400 Body height 166.37 cm Kyler Miramontes Other [employer] Other 04-02-2023 11:30-0400 Body mass index (BMI) [Ratio] 27.04 kg/m2 Kyler Miramontes Other [employer] Other 04-02-2023 11:30-0400 Body weight 74.84 kg Kyler Miramontes Other [employer] Other 04-02-2023 11:30-0400 Diastolic blood pressure 80 mm[Hg] Kyler Miramontes Other [employer] Other 04-02-2023 11:30-0400 Systolic blood pressure 110 mm[Hg] Kyler Miramontes Other [facility] [employer] Other 11-18-2022 11:59-0500 Diastolic blood pressure 94 mm[Hg] Services [facility] [employer] Work Phone: [facility] 11-18-2022 11:59-0500 Heart rate 85 /min Services [facility] [employer] Work Phone: [facility] 11-18-2022 11:59-0500 Respiratory rate 16 /min Services [facility] [employer] Work Phone: [facility] 11-18-2022 11:59-0500 SaO2% (BldA) [Mass fraction] 98 % Services [facility] [employer] Work Phone: [facility] 11-18-2022 11:59-0500 Systolic blood pressure 140 mm[Hg] Services [facility] [employer] Work Phone: [facility] 11-18-2022 11:21-0500 Inhaled oxygen flow rate 3 L/min Services [facility] [employer] Work Phone: [facility] 11-18-2022 09:23-0500 Body height 166.37 cm Services [facility] [employer] Work Phone: [facility] 11-18-2022 09:23-0500 Body weight 74.38 kg Services [facility] [employer] Work Phone: [facility] 11-03-2022 11:30-0500 Body height 166.37 cm Kyler Miramontes Other [employer] [facility] [employer] Other 11-03-2022 11:30-0500 Diastolic blood pressure 80 mm[Hg] Kyler Miramontes Other [facility] [employer] Other 11-03-2022 11:30-0500 SaO2% (BldA) [Mass fraction] 98 % Kyler Miramontes Other [employer] [facility] [employer] Other 11-03-2022 11:30-0500 Systolic blood pressure 118 mm[Hg] Kyler Miramontes Other [facility] [employer] Other 07-31-2022 11:50-0400 Blood Pressure Location [employer] [facility] 07-31-2022 11:50-0400 Diastolic blood pressure 82 mm[Hg] [employer] [facility] 07-31-2022 11:50-0400 Heart rate 70 /min [employer] [facility] 07-31-2022 11:50-0400 Respiratory rate 16 /min [employer] [facility] 07-31-2022 11:50-0400 Systolic blood pressure 136 mm[Hg] Joshua [employer] [facility] 05-27-2022 09:13-0400 Body temperature 97.9 [degF] Services [facility] [employer] Work Phone: [facility] 05-27-2022 09:13-0400 Body weight 77.11 kg Services [facility] Work Phone: [facility] 05-27-2022 09:13-0400 Diastolic blood pressure 82 mm[Hg] [facility] Work Phone: [facility] 05-27-2022 09:13-0400 Heart rate 70 /min Services [facility] Work Phone: [facility] 05-27-2022 09:13-0400 Respiratory rate 20 /min [facility] Work Phone: [facility] 05-27-2022 09:13-0400 SaO2% (BldA) [Mass fraction] 98 % [facility] Work Phone: [facility] 05-27-2022 09:13-0400 Systolic blood pressure 121 mm[Hg] Services [facility] Work Phone: [facility] 05-27-2022 08:06-0400 Body height 166.37 cm [facility] Work Phone: [facility] 05-01-2022 22:19-0400 Diastolic blood pressure 70 mm[Hg] Services [facility] Work Phone: [facility] 05-01-2022 22:19-0400 Heart rate 86 /min Services [facility] Work Phone: [facility] 05-01-2022 22:19-0400 Respiratory rate 18 /min Services [facility] Work Phone: [facility] 05-01-2022 22:19-0400 SaO2% (BldA) [Mass fraction] 99 % Services [facility] Work Phone: [facility] 05-01-2022 22:19-0400 Systolic blood pressure 138 mm[Hg] Services [facility] Work Phone: [facility] 05-01-2022 17:09-0400 Body height 166.37 cm Services [facility] Work Phone: [facility] 05-01-2022 17:09-0400 Body temperature 99.4 [degF] Services [facility] [employer] Work Phone: [facility] 05-01-2022 17:09-0400 Body weight 77.8 kg Services [facility] [employer] Work Phone: [facility] 04-29-2022 14:29-0400 Body height 165.1 cm Services [facility] [employer] Work Phone: [facility] 04-29-2022 14:29-0400 Body temperature 97.8 [degF] Services [facility] [employer] Work Phone: [facility] 04-29-2022 14:29-0400 Body weight 68.03 kg Services [facility] [employer] Work Phone: [facility] 04-29-2022 14:29-0400 Diastolic blood pressure 83 mm[Hg] Services [facility] [employer] Work Phone: [facility] 04-29-2022 14:29-0400 Heart rate 70 /min Services [facility] [employer] Work Phone: [facility] 04-29-2022 14:29-0400 Respiratory rate 16 /min Services [facility] [employer] Work Phone: [facility] 04-29-2022 14:29-0400 SaO2% (BldA) [Mass fraction] 100 % Services [facility] [employer] Work Phone: [facility] 04-29-2022 14:29-0400 Systolic blood pressure 131 mm[Hg] Services [facility] [employer] Work Phone: [facility] 02-19-2022 15:45-0400 Body height 166.37 cm Kyler Miramontes Other [employer] Other 02-19-2022 15:45-0400 Body mass index (BMI) [Ratio] 27.36 kg/m2 Kyler Miramontes Other [employer] Other 05-19-2022 15:45-0400 Body weight 75.75 kg Kyler Miramontes Other [employer] Other 02-19-2022 15:45-0400 Diastolic blood pressure 64 mm[Hg] Kyler Fe Other [employer] Other 02-19-2022 15:45-0400 Systolic blood pressure 110 mm[Hg] Kyler Fe Other [employer] Other 01-28-2022 14:00-0400 Body height 166.37 cm Kyler Miramontes Other [employer] Other 01-28-2022 14:00-0400 Body mass index (BMI) [Ratio] 27.27 kg/m2 Kyler Miramontes Other [employer] Other 01-28-2022 14:00-0400 Body weight 75.48 kg Kyler Miramontes Other [employer] Other 01-28-2022 14:00-0400 Diastolic blood pressure 68 mm[Hg] Kyler Miramontes Other [employer] Other 01-28-2022 14:00-0400 Systolic blood pressure 112 mm[Hg] Kyler Miramontes Other [employer] Other 01-14-2022 12:00-0400 Body height 166.37 cm Girish Callaway Other [employer] Other 01-14-2022 12:00-0400 Body mass index (BMI) [Ratio] 25.23 kg/m2 Girish Callaway Other [employer] Other 01-14-2022 12:00-0400 Body weight 69.85 kg Girish Callaway Other [facility] [employer] Other Encounters Encounter Date Encounter Type Care Provider Facility Start: 03-16-2024 Non-patient / Non-visit PROFESSOR [employer]ERC[employer] L aura Spasic Work Phone: [facility] Work Phone: Start: 03-16-2024 End: 03-16-2024 Admission to same day surgery center PROFESSOR [employer]ERC[employer] Ajit Spasic Work Phone: [facility] Work Phone: Start: 03-16-2024 End: 03-16-2024 ambulatory PROFESS[employer] Ajit E Spasic Work Phone: [facility] Work Phone: Start: 03-08-2024 End: 03-08-2024 ambulatory PROFESS[employer] Ajit E Spasic Work Phone: [facility] Work Phone: Start: 03-08-2024 End: 03-08-2024 Patient encounter procedure PROFESSOR [employer]ERC[employer] Ajit Spasic Work Phone: [facility] Work Phone: Start: 03-02-2024 End: 03-02-2024 Patient encounter procedure PROFESSOR [employer]ERC[employer] Ajit Spasic Work Phone: [facility] Work Phone: Start: 03-02-2024 End: 03-02-2024 ambulatory PROFESS[employer] Ajit E Spasic Work Phone: [facility] Work Phone: Start: 03-01-2024 Non-patient / Non-visit PROFESSOR OF EXERCISE [employer]ENCE-C L aura Spasic Work Phone: [facility] Work Phone: Start: 03-01-2024 End: 03-01-2024 Admission to same day surgery center PROFESS[employer] Ajit Spasic Work Phone: [facility] Work Phone: Start: 03-01-2024 End: 03-01-2024 ambulatory PROF[employer] Ajit E Spasic Work Phone: [facility] Work Phone: Start: 02-21-2024 End: 02-21-2024 ambulatory PROFESS[employer] Ajit E Spasic Work Phone: [facility] Work Phone: Start: 02-21-2024 End: 02-21-2024 Patient encounter procedure PROFESSOR [employer] Ajit Spasic Work Phone: [facility] Work Phone: Start: 02-09-2024 End: 02-09-2024 Patient encounter procedure PROFESSOR [employer]ERC[employer] Ajit Spasic Work Phone: [facility] Start: 02-09-2024 End: 02-09-2024 ambulatory PROF[employer] Ajit E Spasic Work Phone: [facility] Work Phone: Start: 02-04-2024 End: 02-04-2024 Patient encounter procedure PROFESSOR [employer] Ajit Spasic Work Phone: [facility] Work Phone: Start: 02-04-2024 End: 02-04-2024 ambulatory PROF[employer] Ajit E Spasic Work Phone: [facility] Work Phone: Start: 01-21-2024 End: 01-21-2024 Patient encounter procedure PROFESSOR [employer]ERCISE [employer] Ajit Spasic Work Phone: [facility]Ultrasound [facility] [place] Work Phone: Start: 01-21-2024 End: 01-21-2024 ambulatory PROFESS[employer] Ajit E Spasic Work Phone: [facility] Work Phone: Start: 01-18-2024 End: 01-18-2024 ambulatory Ajit E Spasic [facility] Work Phone: Start: 01-18-2024 End: 01-18-2024 Departed Referred PROFESSOR [employer] EXERCISE SCIENCE-C Ajit Spasic Work Phone: [facility] Start: 10-20-2023 End: 10-20-2023 ambulatory CARRI Kaplan VISCI Not Available Start: 10-16-2023 End: 10-16-2023 Emergency department patient visit PROFESSOR [employer]ERCISE [employer]ENCE[employer] Ajit Spasic Work Phone: [facility]-Emergency Room Work Phone: Start: 10-07-2023 End: 10-09-2023 Evaluation and management of inpatient PROFESSOR [employer]ERCISE [employer]ENCE[employer] Ajit Spasic Work Phone: [facility] Work Phone: Start: 09-28-2023 End: 09-28-2023 Admission to same day surgery center PROFESSOR [employer] Ajit Spasic Work Phone: [facility]Surgery Center [facility] [place] Start: 09-28-2023 End: 09-28-2023 ambulatory Ajit E Spasic Facility:[facility] Start: 09-16-2023 End: 09-16-2023 Patient encounter procedure PROFESSOR OF EXERCISE SCIENCE-[employer] Ajit Spasic Work Phone: [facility]-Pre-Surgical Testing Work Phone: Start: 09-16-2023 End: 09-16-2023 ambulatory PROFESSOR [employer]ERCISE [employer]ENCE[employer] Ajit E Spasic Work Phone: [facility] Work Phone: Start: 07-13-2023 End: 07-13-2023 Admission to same day surgery center NA [employer] Work Phone: [facility] [place] Start: 07-13-2023 End: 07-13-2023 ambulatory . [employer] Work Phone: [facility] Work Phone: Start: 06-30-2023 End: 06-30-2023 Patient encounter procedure NA [employer] Work Phone: [facility] Work Phone: Start: 06-30-2023 End: 06-30-2023 ambulatory . [employer] Work Phone: [facility] Work Phone: Start: 05-05-2023 (PROC) PROCEDURE Kyler Miramontes [facility] Start: 05-05-2023 End: 05-05-2023 Admission to same day surgery center PROFESSOR OF EXERCISE SCIENCE-C Ajit Spasic Work Phone: [facility] Work Phone: Start: 05-05-2023 End: 05-05-2023 ambulatory NON STAFF [facility] Work Phone: Start: 05-04-2023 End: 05-04-2023 ambulatory NON STAFF [facility] Work Phone: Start: 05-04-2023 End: 05-04-2023 Departed Referred PROFESSOR OF EXERCISE SCIENCE-C Ajit Spasic Work Phone: [facility] Start: 04-26-2023 End: 04-26-2023 Patient encounter procedure PROFESSOR OF EXERCISE SCIENCE-C Ajit Spasic Work Phone: [facility] [place] Work Phone: Start: 04-26-2023 End: 04-26-2023 ambulatory Kyler Miramontes Facility:[facility] Start: 04-14-2023 (PROC) PROCEDURE [facility] Start: 04-14-2023 End: 04-14-2023 Admission to same day surgery center PROFESSOR OF EXERCISE SCIENCE-C Ajit Millanc Work Phone: [facility] Work Phone: Start: 04-14-2023 End: 04-14-2023 ambulatory NON STAFF [facility] [employer] Other Start: 04-02-2023 End: 04-02-2023 ambulatory Kyler Miramontes Other [employer] Other Start: 04-02-2023 Office outpatient vi sit 25 minutes Kyler Miramontes [facility] [place] Start: 02-15-2023 End: 02-15-2023 ambulatory AJIT SPASIC Facility:[facility] Start: 02-09-2023 End: 02-09-2023 ambulatory [facility] Work Phone: [facility] Work Phone: Start: 02-09-2023 End: 02-09-2023 Departed Referred Services [facility] Work Phone: [facility] Start: 01-29-2023 End: 01-29-2023 ambulatory AJIT SPASIC Facility:[facility] Start: 12-29-2022 ambulatory Joshua PRESTON Facility : [place] Start: 11-18-2022 (PROC) PROCEDURE [facility] Start: 11-18-2022 End: 11-18-2022 Admission to same day surgery center Services [facility] Work Phone: [facility] Work Phone: Start: 11-18-2022 End: 11-18-2022 ambulatory Services [facility] Work Phone: [facility] Work Phone: Start: 11-12-2022 End: 11-12-[address] DERICK BORRERO . Facility:[facility] Start: 11-05-2022 End: 11-05-2022 ambulatory Services [facility] Work Phone: [facility] Work Phone: Start: 11-05-2022 End: 11-05-2022 Departed Referred Services [facility] Work Phone: [facility] Services Start: 11-03-2022 End: 11-03-2022 ambulatory Kyler Miramontes Other [facility] [employer] Other Start: 11-03-2022 Office outpatient vi sit 25 minutes Kyler Miramontes [facility] Start: 11-03-2022 End: 11-03-2022 Patient encounter procedure Services [facility] Work Phone: [facility]-XRay [facility] Work Phone: Start: 11-02-2022 End: 11-03-2022 ambulatory Joshua PRESTON Facility: [place] Start: 11-02-2022 End: 11-02-2022 Patient encounter procedure Joshua PRESTON [facility] [place] Start: 09-29-2022 End: 09-30-2022 ambulatory Joshua PRESTON Facility: [place] Start: 09-29-2022 End: 09-29-2022 Patient encounter procedure Joshua PRESTON [facility] [place] Start: 08-24-2022 End: 08-25-2022 ambulatory Joshua PRESTON Facility:[facility] Start: 08-24-2022 End: 08-24-2022 Patient encounter procedure Joshua PRESTON [facility] Start: 07-31-2022 End: 08-01-2022 ambulatory BELTRAN PAVON Facility:[facility] Start: 07-31-2022 End: 07-31-2022 Patient encounter procedure Joshua PRESTON [facility] [place] Start: 07-08-2022 End: 07-08-2022 ambulatory [facility] Work Phone: [facility] Work Phone: Start: 07-08-2022 End: 07-08-2022 Patient encounter procedure [facility] Work Phone: [facility] [place] Start: 06-24-2022 End: 06-24-2022 Patient encounter procedure [facility] Work Phone: [facility] [place] Start: 06-17-2022 End: 06-17-2022 Patient encounter procedure [facility] Work Phone: [facility] [place] Start: 06-09-2022 End: 06-09-2022 Patient encounter procedure [facility] Work Phone: [facility] [place] Start: 06-02-2022 End: 06-02-2022 Departed Referred Services [facility] Work Phone: [facility] Start: 05-27-2022 End: 05-27-2022 Registered Recurring Services [facility] Work Phone: [facility] Start: 05-07-2022 End: 05-07-2022 Patient encounter procedure [facility] Work Phone: [facility] [place] Start: 05-01-2022 End: 05-01-2022 Emergency department patient visit [facility] Work Phone: [facility]-Emergency Room Start: 05-01-2022 End: 05-01-2022 Patient encounter procedure Services [facility] Work Phone: [facility]XRay [place] Start: 04-30-2022 End: 04-30-2022 Departed Referred Services [facility] Work Phone: [facility] Start: 04-29-2022 End: 04-29-2022 Emergency department patient visit Services [facility] Work Phone: [facility] Start: 03-04-2022 (Procedure) Short Kyler Miramontes [employer] [facility] Start: 03-04-2022 End: 03-04-2022 ambulatory Kylerjocelyn Miramontes Other [employer] Other Start: 02-19-2022 End: 02-19-2022 ambulatory Kylerjocelyn Miramontes Other [employer] Other Start: 02-19-2022 Office outpatient vi sit 25 minutes Kyler Fe [facility] Start: 02-11-2022 (Procedure) Short Kyler Miramontes [employer] [facility] Start: 02-11-2022 End: 02-11-2022 ambulatory Kylerjocelyn Miramontes Other [employer] Other Start: 01-28-2022 End: 01-28-2022 ambulatory Kylerjocelyn Miramontes Other [employer] Other Start: 01-28-2022 Office consultation new/estab patient 60 min Kyler Fe [facility] Start: 01-14-2022 End: 01-14-2022 ambulatory Girsih Callaway Other [employer] Other Start: 01-14-2022 Office outpatient ne w 30 minutes Girish Callaway [facility] Neuro[facility] Start: 01-21-2021 End: 01-21-2021 Departed Referred Services [facility] Work Phone: -[facility] Start: 12-24-2020 End: 12-24-2020 Patient encounter procedure Ajit Pettit -[facility] [place] Start: 12-03-2020 End: 12-03-2020 Patient encounter procedure Ajit Pettit -MRI [facility] Start: 12-02-2020 End: 12-02-2020 Patient encounter procedure Ajit Pettit -MRI [facility] Start: 11-05-2020 End: 11-05-2020 Departed Referred Ajitcristal Millanderek -[facility] Start: 10-22-2020 End: 10-22-2020 Patient encounter procedure Ajit Pettit -XRay [facility] Start: 09-23-2020 End: 09-23-2020 Patient encounter procedure Ajit Pettit -Lab [facility] Procedures Date Procedure Procedure Detail Performing Clinician Start: 03-16-2024 Screening colonoscopy N P-C Ajit Millanc Work Phone: Start: 03-02-2024 X-ray of lumbar spin e, four views PROFESSOR OF EXERCISE SCIENCE-C Ajit Lariossic Work Phone: Start: 03-01-2024 Injection of local anesthetic into sacroiliac joint PROFESSOR OF EXERCISE SCIENCE-C Ajit Spasic Work Phone: Start: 02-09-2024 Ultrasonography of r ight breast PROFESSOR OF EXERCISE SCIENCE-C Ajit Spasic Work Phone: Start: 02-04-2024 Screening mammograph y of bilateral breasts PROFESSOR OF EXERCISE SCIENCE-C Ajit Harrietsic Work Phone: Start: 01-21-2024 Ultrasonography of bilateral kidneys PROFESSOR OF EXERCISE SCIENCE-C Ajit Spasic Work Phone: Start: 10-09-2023 Stool culture for bacteria PROFESSOR OF EXERCISE SCIENCE-C Ajit Spasic Work Phone: Start: 10-08-2023 Computed tomography of abdomen and pelvis with contrast PROFESSOR OF EXERCISE SCIENCE-C Ajit Spasic Work Phone: Start: 09-28-2023 Total hysterectomy v ia vaginal approach PROFESSOR OF EXERCISE SCIENCE-C Ajit Spasic Work Phone: Start: 09-16-2023 Antibody screen Kyler Miramontes Comment on above: Order Comment: Date of Surgery: [id number] Result Comment: PERF ORMED BY: [facility] [address] [place] [address] PATHOLOGIST PHOSPHORUS PROCESSING SUPERVISOR RIDGE HUERTA M.D. Start: 07-13-2023 Hysteroscopy NA [employer] Work Phone: Start: 06-30-2023 Antibody screen Kyler Miramontes Comment on above: Order Comment: Date of Surgery: [id number] Result Comment: PERF ORMED BY: [facility] [place] [address] PATHOLOGIST PHOSPHORUS PROCESSING SUPERVISOR RIDGE HUERTA M.D. Order Comment: Reaso n for Exam Type 2 diabetes mellitus without complication, without long- Start: 05-05-2023 Injection of local anesthetic into sacroiliac joint PROFESSOR OF EXERCISE SCIENCE-C Ajit [employer] Work Phone: Start: 05-04-2023 Urine culture NA [facility] [employer] [facility] Work Phone: Start: 04-26-2023 Radiography of thora cic spine PROFESSOR OF EXERCISE SCIENCE-C Ajit [employer] Work Phone: Start: 04-14-2023 Epidural injection o f lumbar spine using fluoroscopic guidance PROFESSOR OF EXERCISE SCIENCE-C Ajit Spasic Work Phone: Start: 02-09-2023 Urine culture PROFESSOR OF EXERCISE SCIENCE-C Piero a [employer] Work Phone: Start: 11-18-2022 Injection of spinal epidural space Services [facility] [employer] Work Phone: Start: 11-05-2022 Urine culture Services [facility] [employer] Work Phone: Start: 11-03-2022 X-ray of cervical spine Services [facility] [employer] Work Phone: Start: 08-24-2022 Cystourethroscopy wi dilation of urethral stricture Joshua PRESTON Start: 06-24-2022 MRI of head Services [facility] [employer] Work Phone: Start: 06-17-2022 Transvaginal echography Services [facility] [employer] Work Phone: Start: 06-17-2022 Pelvic echography Servi [facility] [employer] Work Phone: Start: 06-09-2022 US scan of bladder Serv [facility] [employer] Work Phone: Start: 05-01-2022 Computed tomography of abdomen and pelvis with contrast Services [facility] [employer] Work Phone: Start: 05-01-2022 X-ray of right knee Ser [facility] [employer] Work Phone: Start: 04-29-2022 X-ray of left ankle Ser [facility] [employer] Work Phone: Start: 12-24-2020 MRI of left [...] cervi jordan spine Ajit Spasic Appendectomy Joshua [employer] Blood culture for ba cteria, including anaerobic screen Services [facility] [employer] Work Phone: Blood culture for ba cteria, including anaerobic screen Services [facility] [employer] Work Phone: Cholecystectomy Joshua [employer] H/O: hysterectomy S/P hysterectomy PROFESSOR OF EXERCISE SCIENCE-C L aura Spasic Work Phone: H/O: hysterectomy Status post hysterectomy PROFESSOR OF EXERCISE SCIENCE-C Ajit Spasic Work Phone: Urine culture Services [facility] [employer] Work Phone: Plan of Treatment Date Care Activity Detail Author Start: 03-16-2024 [facility] Start: 03-01-2024 [facility] Start: 10-16-2023 Bacteria identified in Blood by Culture [facility] Start: 10-16-2023 [facility] Start: 10-09-2023 Stool culture Stool Culture [facility] Start: 10-09-2023 [facility] Start: 10-09-2023 Referral to higher education administrator [facility] Start: 10-08-2023 Hospital admission [facility] Start: 10-08-2023 [facility] Start: 10-07-2023 Referral to clinical lan specialist [facility] Start: 09-28-2023 Hospital admission [facility] Start: 09-28-2023 [facility] Start: 07-13-2023 End: 07-13-2023 [facility] Start: 05-05-2023 [facility] Start: 05-04-2023 Bacteria identified in Urine by Culture Urine Culture [facility] Start: 05-04-2023 Urine culture Urine Culture [facility] Start: 04-14-2023 [facility] Start: 02-09-2023 Bacteria identified in Urine by Culture [facility] Start: 11-18-2022 [facility] Start: 11-05-2022 Bacteria identified in Urine by Culture [facility] Start: 06-02-2022 End: 06-02-2022 Departed Referred Departed Referred [facility] Start: 05-27-2022 Registered Recurring Iron deficiency [facility] Start: 05-27-2022 [facility] Start: 05-07-2022 End: 05-07-2022 Patient encounter procedure Departed Clinical [facility] [place] Start: 05-01-2022 Computed tomography of abdomen and pelvis with contrast CT abdomen pelvis w con [facility] Start: 05-01-2022 End: 05-01-2022 Emergency department patient visit Departed Emergency [facility] Atopobium vaginae DN A [Presence] in Vaginal fluid by NAYELY with probe detection [facility] Bacterial vaginosis associated bacterium 2 DNA [Presence] in Vaginal fluid by NAYELY with probe detection [facility] Chlamydia trachomati s rRNA [Presence] in Cervix by NAYELY with probe detection [facility] Glucose measurement estimated from glycated hemoglobin [facility] Hemoglobin A1c/Hemoglobin.total in Blood [facility] Human papilloma viru s 16+18+31+33+35+39+45+51+5 2+56+58+59+66+68 DNA [Presence] in Cervix by Probe with signal amplification [facility] Human papilloma viru s 16+18+31+33+35+39+45+51+5 2+56+58+59+68 DNA [Presence] in Cervix by Probe with signal amplification [facility] Megasphaera sp type 1 DNA [Presence] in Vaginal fluid by NAYELY with probe detection [facility] Neisseria gonorrhoea e rRNA [Presence] in Cervix by NAYELY with probe detection [facility] Patient Education [facility] Work Phone: Patient referral [facility] Work Phone: XR Lumbar spine 4 Views [facility] Immunizations Immunization Date Immunization Notes [facility]2021 COVID-19 mRNA, Comirnaty (Pfizer) NA [employer] Work Phone: [facility] 08-29-2021 COVID-19 mRNA, Comirnaty (Pfizer) NA [employer] Work Phone: [facility] NEGATED: Highlighted row has not occurred!10-27-2019 influenza virus vaccine, live, attenuated, for intranasal use Joshua PRESTON [facility] Payers Date Payer Category Payer Self-pay [id number] 2019 Unknown [id number] 1979 Unknown [id number] 2.16.8 40.1.861571.3.579.2.727 1979 Unknown [id number] .16.8 40.1.847466.3.579.2.727 1979 Unknown [id number] 2.16.8 40.1.162739.3.579.2.727 1979 Unknown [id number] 2.16.8 40.1.002048.3.579.2.727 1979 Unknown [id number] .16.8 40.1.147150.3.579.2.727 1979 Unknown [id number] .16.84 0.1.886957.3.579.2.593 1979 Unknown [id number] .16.84 0.1.480075.3.579.2.593 1979 Unknown [id number] .16.84 0.1.936284.3.579.2.593 1979 Unknown [id number] .16.84 0.1.071582.3.579.2.1259 1959 Medicaid [id number] Unknown [id number] Unknown [id number] 2.16.8 40.1.954644.3.579.2.531 Unknown [id number] 2.16.8 40.1.936619.3.579.2.531 Unknown [id number] 2.16.8 40.1.143556.3.579.2.531 Unknown [id number] 2.16.8 40.1.578462.3.579.2.531 Unknown [id number] 2.16.8 40.1.498536.3.579.2.531 Unknown [id number] 2.16.8 40.1.565130.3.579.2.531 Unknown [id number] 2.16.8 40.1.543400.3.579.2.531 Unknown [id number] 2.16.8 40.1.212569.3.579.2.531 Unknown [id number] 2.16.8 40.1.832836.3.579.2.531 Unknown [id number] 2.16.8 40.1.580763.3.579.2.531 Unknown [id number] 2.16.8 40.1.423252.3.579.2.531 Unknown [id number] 2.16.8 40.1.067164.3.579.2.531 Unknown [id number] 2.16.8 40.1.412876.3.579.2.531 Unknown [id number] 2.16.8 40.1.111189.3.579.2.531 Unknown [id number] 2.16.8 40.1.710227.3.579.2.531 Unknown [id number] 2.16.8 40.1.507025.3.579.2.531 Unknown [id number] 2.16.8 40.1.298515.3.579.2.531 Social History Date Type Detail Facility Start: 09-25-2019 End: 10-16-2023 Tobacco smoking status NHIS Smoker (finding) [facility] Start: 1980 Sex Assigned At Female F [facility] Sex Assigned At [facility] Start: 07-31-2022 Tobacco smoking status Heavy t obacco smoker (finding) [facility] Start: 03-01-2024 End: 03-16-2024 Tobacco smoking status NHIS Current some day smoker [facility] Goals Date Patient Goal Desired Activity /State Functional Status Date Assessment Result Facility 10-09-2023 Functional status Patient at Baseline [facility] Work Phone: 11-02-2022 Functional Status N/A [facility] 08-24-2022 Functional Status N/A [facility] 07-31-2022 Functional Status N/A [facility] Mental Status Date Assessment Result Facility 10-09-2023 Cognitive function Cognitive Sta tus Patient at Baseline [facility] Work Phone: Clinical Notes 01-14-2022 to 03-16-2024 Note Date & Type Note Facility 03-16-2024 Procedure note [facility] 03-01-2024 Procedure note [facility] 10-09-2023 Discharge summary Note Date/Time October 09, 2023 1:22pm [facility] [address] [place], [place] [id number] Discharge Summary Signed Patient: Rachel Mcgarry MR#: [id number] : 1980 Acct:[id number] Age/Sex: 43 / F Adm Date: 4 Loc: Room: [address] [place] [address]: Salazar Cabrera DO Copies to: Ajit Pettit, CHRSITINA Munoz, DO~ Providers Date of Admission: 10/08/23 Date of Discharge: 10/09/23 Discharging Provider: Salazar Cabrera Additional Discharging Provider: Salazar Cabrera Primary Care Provider: Ajit Pettit Consults: 10/07/23 23:27 Consult to Adult Hospitalist Routine 10/08/23 07:21 Consult to transport coordinator Routine 10/09/23 06:50 Consult to Obstetrics Routine [...] abdominal pain. CT abdomen pelvis done at [place] showed nonspecific hyperemia and thickening of the small bowel distally suggestive of enteritis but nonacute otherwise and no postoperative complications were noted. She was transferred to [facility] for evaluation by recent surgical team. She was noted to have elevated lactate and given IV hydration as well as Zosyn. Lactate resolved with hydration. She had repeat CTdone at [place] with bloating and pain increasing with liquid intake unchangedfrom previous and no surgical complications again noted. [facility] services followed ongoing through hospital stay. She was also seen by psychiatry with increase insertraline due to reports of depression and suicidal thoughts, should follow-up with [facility] behavioral health after discharge. Date of discharge [...] % (Auto) 70.1, Lymph % (Auto) 16.5, [place] % (Auto) 9.5, Eos % (Auto) 3.5, Baso % (Auto) 0.4, Nucleat RBC Rel Count 0.1, Neut # (Auto) 9.6 H, Lymph # (Auto) 2.2, [place] # (Auto) 1.3 H, Eos # (Auto) [...] signed by Salazar Cabrera DO> 10/09/23 1842 [facility] Work Phone: 1(876) 346-295001-06-2024 Progress note Author -LINDA Pavon [facility] October 09, 2023 8:22am Note Date/Time October 09, 2023 8: 22am [facility] [address] [place] [id number] Progress Note Signed Patient: Rachel Mcgarry MR#: [id number] : 1980 Acct:[id number] Age/Sex: 43 / F Adm Date: 4 Loc: 3S Room: [address] [place] [address] Type: ADM IN Attending Dr: Salazar Cabrera [...] % (Auto) 70.1, Lymph % (Auto) 16.5, [place] % (Auto) 9.5, Eos % (Auto) 3.5, Baso % (Auto) 0.4, Nucleat RBC Rel Count 0.1, Neut # (Auto) 9.6 H, Lymph # (Auto) 2.2, [place] # (Auto) 1.3 H, Eos # (Auto) 0.5 H, Baso # (Auto) 0.1 10/08/23 22:27: POC Glucose 194 10/08/23 18:21: POC Glucose 265, POC Glucose Comment Glu2: cleaned meter 10/08/23 13:07: POC Glucose 166, POC Glucose Comment Glu2: cleaned meter 10/08/23 10:31: Lactic Acid 1.9 10/08/23 08:20: Urine Color [place] A, Urine Appearance Turbid A, Urine pH 5.5, Ur Specific Harper > 1.050 H, Urine Protein 30 H, [...] <Electronically signed by BONG Pavon> 10/09/23 0822 [facility] Work Phone: 1(691) 620-395801-05-2024 Consult note Author Teo crandall [facility] October 08, 2023 4:59pm Note Date/Time October 08, 2023 11 :30am [facility] [address] [place] [address] Psychiatry Consult Note Signed with Piotr Patient: Rachel Mcgarry MR#: [id number] : 1980 Acct:[id number] Age/Sex: 43 / F Adm Date: 4 Loc: 3S Room: 9S8719-4 Type : ADM IN Attending Dr: Rosanna [...] negative unless noted below or in HPI PMFSH Medical History (Updated 10/08/23 @ 11:22 by [...] Color Urine Appearance Urine pH Ur Specific Harper Urine Protein Urine Glucose (UA) Urine Ketones Urine Occult Blood Urine Nitrite Ur Leukocyte Esterase Urine RBC Urine WBC 10/08/23 08:20 RBC Hgb Hct MCV MCH MCHC RDW Plt Count MPV Sodium Potassium Chloride Carbon Dioxide Anion Gap BUN Creatinine Calcium Total Bilirubin AST ALT Alkaline Phosphatase Total Protein Albumin Urine Color [place] A Urine Appearance Turbid A Urine pH 5.5 Ur Specific Harper > 1.050 H Urine Protein 30 H Urine Glucose (UA) 250 H Urine Ketones Trace H Urine Occult Blood Negative Urine Nitrite Negative Ur Leukocyte Esterase Negative Urine RBC 5-9 H Urine WBC 3-4 Assessment/Plan (1) History of depression: Plan: Patient was agreeable to medication changes. Patient states she does not need to be admitted to 1S after discharge. Plan Increase Zoloft to 150 [...] <Electronically signed by Teo Taylor MD> 10/08/23 1411 [facility] Work Phone: 1(976) 246-235601-05-2024 Progress note Author Salazar Cabrera [facility] October 08, 2023 4:41pm Note Date/Time October 08, 2023 11 :44am [facility] [address] [place] [address] Hospitalist Progress Note Signed Patient: Rachel Mcgarry MR#: [id number] : 1980 Acct:[id number] Age/Sex: 43 / F Adm Date: 4 Loc: 3S Room: 9E1096-6 Type: ADM IN Attending Dr: Rosanna Grullon [...] Lactic acidosis chronic leukocytosis -CT abdomen pelvis?from [place] showed nonspecific hyperemia and thickening of small bowel distally suggestive of enteritis, nonacute otherwise, no postsurgical complications noted -Repeat CT abdomen pelvis?increasing bibasilar atelectasis, fatty liver, no bowel or urinary tract obstruction, no pelvic hematoma or significant free fluid, otherwise unchanged CT abdomen pelvis -Initial lactate 3.0--> 2.6--> 2.0--> 1.9 -Continue Zosyn, IVF. Afebrile. Scheduled dicyclomine. Symptom management -Advance diet to full liquid -STEEL BURNER following Depression -Seen by psychiatry with increase [...] signed by Salazar Cabrera DO> 10/08/23 1641 [facility] Work Phone: 1(164) 182-273801-05-2024 History and physical note Author BONG Pavon [facility] October 08, 2023 1:07pm Note Date/Time October 08, 2023 7: 21am [facility] [address] [place] [address] [employer]ER History & Physical Signed with Addenda Patient: Rachel Mcgarry MR#: [id number] : 1980 Acct:[id number] Age/Sex: 43 / F Adm Date: 4 Loc: Room: [address] [place] [address] Type: ADM IN Attending Dr: Beltran Pavon MD Copies to: OLEG Sharp MD-NOMS~ ADDENDUM1 1300:Repeat CT scan abdomen /pelvis today without obstruction,pelvic abcess or hematoma Lactic acid,WBC and urine output have all improved. She is tolerating po without nausea/emesis -but some abdominal distension, without rebound. Psychiatrist has increased her SSRI and will follow up as out pt. Hospitalist feels that she has enteritis. She is cleared from the STE[employer] [facility]NER post op standpoint and we are signing off. Pt will be transferred to a medical floor for continued management. Addendum Documented By: BONG Pavon 10/08/23 1307 Addendum Signed By: <Electronically signed by BONG Pavon> 10/08/23 1307 Date of Service: 10/08/2023 [facility] - HPI History of Present Illness Chief Complaint: Abdominal pain with emesis Planned Procedure: S/P TLH 09/28/2023 HPI: Rachel presented to [place] yesterday with abdominal pain/distension and emesis.Her lactic acid was 3.0,WBS 20k in ER,Sodium [address] scan compatible with enteritis. She was transferred to [facility] for observation and treatment. Pt with Chronic leukocytosis as followed by hematology for 2 years Review of Systems Review of Systems All other systems reviewed & are negative unless noted below or in HPI [facility] Medical History (Updated 10/08/23 @ 11:22 [...] 600 Mg Tablet) 600 mg PO Q6H [facility] Stop: 10/07/24 01:59 Last Admin: 10/08/23 03:32 Dose: Not Given Insulin Aspart (Insulin Aspart 300 Units/3 Ml Insuln.Pen) 0 units SUBCUT Q6HR [facility]; Protocol Stop: 10/07/24 05:59 Last Admin: 10/08/23 06:27 Dose: 1 units Ondansetron HCl (Ondansetron 4 Mg/2 Ml Vial) 4 mg IV-PUSH Q8H PRN PRN Reason: Nausea And Vomiting Stop: 10/06/24 22:53 Ondansetron HCl (Ondansetron Odt 4 Mg Tab.Rapdis) 4 mg PO Q8HR PRN PRN Reason: Nausea And Vomiting Stop: 10/06/24 22:53 [facility] - Exam Physical Exam Vital signs: Temp [...] Present normal affect, suicidal ideation and depressed [facility] - Results Laboratory Results - Last 48 [...] Albumin 3.7, Globulin 2.4, Albumin/Globulin Ratio 1.5 [facility] - A/P (1) Abdominal pain: Plan: Post [...] By: <Electronically signed by BONG Pavon> 10/08/23 9031 [facility] Work Phone: 1(270) 897-773701-05-2024 Consult note Author Rosanna Grullon [facility] October 08, 2023 7:00am Note Date/Time October 08, 2023 1: 06am [facility] [address] [place] [address] Hospitalist Consult Note Signed Patient: Rachel Mcgarry MR#: [id number] : 1980 Acct:[id number] Age/Sex: 43 / F Adm Date: 4 Loc: Room: [address] [place] [address] Type: ADM IN Attending Dr: Beltran Pavon MD Copies to: MD Ajit Davis, PROFESSOR OF EXERCISE SCIENCE-C Namrata Munoz, BONG Frederick~ HPI DATE OF CONSULTATION: 10/08/23 REQUESTING PROVIDER: Beltran Pavon Consult Narrative Reason for Consult: elevated lactic acid, T2DM, leukocytosis HPI: Ms. Mcgarry is a 43-year-old female with a PMH of T2DM, seizure disorder, recent hysterectomy that was transferred here to [facility] to obstetrics for abdominal pain. Hospitalist team has been consulted for management of T2DM, elevated lactic acid and leukocytosis. Patient arrived to the [facility] emergency room via EMS for lower abdominal [...] September 28. She been seen in the [facility] emergency room for vaginal infection [...] unless noted in the HPI or below. [facility] Medical History (Updated 10/08/23 @ 01:40 [...] 10/10/[address] dyereceived at the [facility] Documented By: Namrata Munoz APRN 10/08/23 0106 Signed By: <Electronically signed by CHRISTINA Munoz> 10/08/23 0153 <Electronically signed by Rosanna Grullon MD> 10/08/23 0700 [facility] Work Phone: 1(886) 438-899708-02-2023 Procedure [facility]07-12-2023 Procedure [facility]06-30-2023 Evaluation note* Encounter Date Diagnosis Assessment Notes [...] activities and movements while managing her pain. [employer] Other 01-31-2023 Evaluation note* Encounter Date Diagnosis [...] cervical spine to further evaluate her pain. [employer] Other 01-30-2023 Hospital Discharge instructions Patient Education [...] to keep your urine pale yellow. ?Take cono-xlu-rrdkdyt or prescription medicines. ?Eat foods that are high in fiber, such as beans, whole grains, and fresh fruits and vegetables. ?Limit foods that are high in fat and processed sugars, such as fried or sweet foods. General instructions Take dfdu-his-tqmggxd and prescription medicines only as told by [...] the muscles that help control urination. Take hjwp-kqj-wbzgpso and prescription medicines only as told by your health care provider. Contact a health care provider if your symptoms do not improve or get worse. This information is not intended to replace advice given to you by your health care provider. Make sure you discuss any questions you have with your health care provider. Document Released: 07/17/2010 Document Revised: 03/30/2019 Document Reviewed: 03/30/2019 [employer] Patient Education 2020 24Symbols. Follow Up Care 10/22/2022 11:17:07 With:JORDANA BALDERAS, Joshua Dempsey, URL Address: [address] [address]- Business (1) When: Unknown [facility] [place] [phone] Note [id number]:127[facility] 08-24-2022 NoteCystoscopy with Urethral Dilation ? [...] if you have a fever over [facility]11-[facility]-2022 Hospital Discharge instructions Patient Education 08/24/2022 [...] Care 07/31/2022 12:32:41 With:Joshua PRESTON Address: [address] [facility] [address] [place], [place] [id number] [facility] (1) When:6 weeks Comments:Call for followup appointment. Monitor the urinary low after the dilation today. Have a great Thanksgiving. [facility]10-28-2022 Hospital Discharge instructions Patient Education 07/31/2022 [...] including vitamins, herbs, eye drops, creams, and pwxt-cdl-xvwqwob medicines. ?Whether you are or may be [...] 07/17/2008 Document Revised: 01/09/2020 Document Reviewed: 07/25/2018 [employer] Patient Education 2020 24Symbols. Follow Up Care 07/24/2022 16:53:57 With:JORDANA BALDERAS, Joshua Dempsey, URL Address: [address] [place], [place] [id number]- When: Unknown Comments:Cysto/ Urodynamics [facility] [phone] Evaluation note* Encounter Date Diagnosis Assessment Notes [...] and GT bursa injection in the future. [employer] Other 04-27-2022 Evaluation note* Encounter Date Diagnosis [...] progress notes from her referring physician at [facility]. I also independently reviewed previous MRI [...] - M79.7) Continue with medication management through [facility]. I will also refer her to [...] negative findings were considered in medical decision-making. [employer] Other 04-13-2022 Evaluation note* Encounter Date Diagnosis Assessment Notes Treatment Notes Treatment Clinical Notes Jan, Neck pain (ICD-10 - M54.2) I really do not see any surgical intervention that would be warranted in either her cervical or lumbar spine. I think continue conservative therapy is warranted. Jan, Low back pain at multiple sites (ICD-10 - M54.50) Jan, Fibromyalgia (ICD-10 - M79.7) [employer] Other consult note Author Jasmin Velázquez [facility] May 27, 2022 11:47am Note Date/Time May 27, 2022 11 :30am [place] at [address] [address] Hem/Onc Consult Note - OP Signed Patient: Rachel Mcgarry MR#: [id number] : 1980 Acct:[id number] Age/Sex: 42 / F Type: REG RCR Copies to: [facility]~ HPI Date/Time of Service: Date of Service: 05/27/2022 Time of Service: 11:29 Referring Provider/PCP: Referring Provider: PCP: Services [facility] - History of Present Illness Reason for Consultation: Leukocytosis Chief Complaint: Patient is here for a referral from Ajit Pettit for leukocytosis. [facility] labs. Patient states that she has been [...] the process of being referred to a crop consultant. Patient smokes averaging half pack to 1 [...] been very well within the normal range [facility] - Medical History Medical History: Medical [...] has been present since at least 2018. Most likely is reactive secondary to stress [...] cancer. Patient is being referred to a crop consultant. We instructed her to call back if there is any concern for further definitive guidance and recommendations - Time with Patient Coordination of Care & Counseling Time: Greater than 50% of time spent with patient was for coordination of care (as documented) and zwhn-qm-nrdp counseling of patient and/or family. Dictated By: Jasmin Velázquez MD DD/ [id number] Signed By: <Electronically signed by Jasmin Velázquez MD> 05/27/22 1147 [facility] Work Phone: Evaluation + Plan note Future Appointments Appointment Date:08/18/2022 08:00:00 AM Scheduled Provider: Location:[facility] Appointment Type:Urology CALL PAT FT Appointment Date:08/24/2022 02:00:00 PM Scheduled Provider: Location:[facility] Appointment Type:Urology FT Appointment Date:08/24/2022 03:00:00 PM Scheduled Provider: Location:[facility] Appointment Type:Urology FT [facility] Evaluation + Plan note Future Appointments Appointment Date:09/29/2022 10:15:00 AM Scheduled Provider:Joshua PRESTON MD Location[facility] Future Appointments Appointment Date:12/29/2022 10:45:00 AM Scheduled Provider:Joshua PRESTON MD Location:[facility] Appointment Type:URO Office Visit [facility] Evsiuation noteNo Assessments Information Available [facility] InformationNort [employer] Other evaluation note* Diagnosis Onset Date Resolution Status Iron deficiency acute Leucocytosis acute Right ovarian cyst acute [facility] Work Phone: Evaluation noteNo assessment information available [facility] Work Phone: Evaluation note* Diagnosis Onset Date Resolution Status Abdominal pain acute Enteritis acute History of depression acute History of leukocytosis acut e IBS (irritable bowel syndrome) acute Leucocytosis acute Metabolic acidosis acute S/P hysterectomy acute T2DM (type 2 diabetes mellitus) acute [facility] Work Phone: Evaluation note* Diagnosis Onset Date Resolution Status Chronic pain acute Lumbosacral spondylosis acut e Sacroiliitis acute [facility] Work Phone: Evaluation note* Diagnosis Onset Date Resolution Status Chronic pain acute Lumbosacral spondylosis acut e Sacroiliitis acute Chronic pain acute Lumbar radiculopathy acute Lumbosacral spondylosis acut e Sacroiliitis acute [facility] Work Phone: History and physical note Author Abi Sunshine [facility] March 16, 2024 8:19am Note Date/Time March 16, 2024 8:20 am [facility] [address] [place] [address] Gastroenterology H&P Signed Patient: Rachel Mcgarry MR#: [id number] : 1980 Acct:[id number] Age/Sex: 44 / F Adm Date: 4 Loc: Room: Type: [facility] Attending Dr: Abi Sunshine DO Copies to: [...] <Electronically signed by Abi Sunshine DO> 03/16/24818 [facility] Work Phone: History general Narrative - Reported* Type Description [...] infection, bowel i nfection and flu 2011 [employer] Other History general Narrative - Reported* Type [...] infection, bowel i nfection and flu 2011 [employer] Other Hospital course Narrative No data available for this section [facility] Hospital Discharge instructions No data available for this section [facility] Hospital Discharge instructions Additional Instructions DISCHARGE INSTRUCTIONS [...] in an emergency, call the office at [[phone]]. TODAY -Take it easy the rest of [...] FOLLOW UP -Please call the office at [phone] to arrange an appointment to see me in 2 weeks [ ][facility] Work Phone: Hospital Discharge instructions Additional Instructions Follow any previous post-op orders.[facility] Work Phone: Progress note No data available for this section [facility] [place] Reason for visit NarrativeReferral Ajit Pettit NP Lumbar DiscNorth [employer] Other Summary Purpose Family History No Family [...] AUTHOR AUTHOR'S ORGANIZ ATION 12/27/2022 [facility] DATE CREATED AUTHOR AUTHOR'S ORGANIZ ATION 02/15/2023 [facility] DATE CREATED AUTHOR AUTHOR'S ORGANIZ ATION 10/21/2023 [facility] EPIC DATE CREATED AUTHOR AUTHOR'S ORGANIZ ATION 03/29/2024 [facility] y[facility] REASON FOR VISIT (unrecogniz ed [...] Status: Inactive Member Role Status Dates Services [facility] Primary Care Provider Active OLEG Sharp Attending Provider Active Team Status: Active Member Role Status Lorie Velázquez MD Attending Provider Active Services [facility] Primary Care Provider Active Team Status: Inactive Member Role Status Dates Services [facility] Primary Care Provider Titus Alvarado DO Emergency Provider Active Team Status: Inactive Member Role Status Dates Services [facility] Primary Care Provider OLEG Condon Attending Provider Active Team Status: Inactive Member Role Status Dates Services [facility] Primary Care Provider Titus Bergeron APRN Emergency Provider Active Team Status: Active Member Role Status Dates Services [facility] Primary Care Provider Titus dos santos Team Status: Inactive Member Role Status OLEG Thomson Attending Provider Active Services [facility] Primary Care Provider Titus dos santos Team Status: Inactive Member Role Status Dates Services [facility] Primary Care Provider Titus Miramontes MD Attending Provider Active Team Status: Inactive Member Role Status Dates Ajit E Spasic , PROFESSOR OF EXERCISE SCIENCE-C Attending Provider Active Team Status: Active Member Role Status Dates . [facility] Primary Care Provider Active Team Status: Inactive Member Role Status Dates Kyler Miramontes MD Attending Provider Active . [facility] Primary Care Provider Active Team Status: Inactive Member Role Status Dates Ajit E Spasic , PROFESSOR OF EXERCISE SCIENCE-C Attending Provider Active NON STAFF Primary Care Provider Active Team Status: Active Member Role Status Dates Ajit E Spasic , PROFESSOR OF EXERCISE SCIENCE-C Primary Care Provider Active Team Status: Inactive Member Role Status Dates Ajit E Spasic , PROFESSOR OF EXERCISE SCIENCE-C Primary Care Provider, Attending Provider Active Team Status: Inactive Member Role Status Dates Kyler Miramontes MD Attending Provider Active Ajit E Spasic , PROFESSOR OF EXERCISE SCIENCE-C Primary Care Provider Active Team Status: Inactive Member Role Status Dates Ajit E Spasic , PROFESSOR OF EXERCISE SCIENCE-C Primary Care Provider Active Kyler Miramontes MD Attending Provider Active Team Status: Inactive Member Role Status Dates Ajit E Spasic , PROFESSOR OF EXERCISE SCIENCE-C Primary Care Provider Active Carri Manuel DO Attending Provider Active Team Status: Inactive Member Role Status Dates Beltran Pavon MD Admit Provider Active Pastora Calderon , JULIANA Other Provider Active Sarina Danielle , RN Other Provider Active Bernie Brar , RN Other Provider Active Karuna Flor , RN Other Provider Active Lakshmi Manzano , JULIANA Other Provider Active Tracy Sun , RN Other Provider Active Silvia Galeas , CHRISTINA Other Provider Active Evan Jackson , DO Other Provider Active Familia Blair MD Other Provider Active Brandon Dowling , DO Other Provider Active Florin Cruz MD Other Provider Active Vivi Holloway MD Other Provider Active Ilene Lopez , CHEMICAL PUMPER Other Provider Active Lilly Alexandre MD Other Provider Active Rangel Tyler MD Other Provider Active Aidan Cardenas MD Other Provider Active Holden De La Cruz MD Other Provider Active Leodan Catalan , DO Other Provider Active Palma Bright MD Other Provider Active Gabriele Vasquez MD Other Provider Active Karina Colvin , PROFESSOR OF EXERCISE SCIENCE-C Other Provider Active Gaurav Peraza MD Other Provider Active Mike Guzman MD Other Provider Active Antonio Teague MD Other Provider Active Jorge Galdamez MD Other Provider Active Kourtney Longoria , DO Other Provider Active Bola Sullivan , DO Other Provider Active Lazaro Dunne , DO Other Provider Active Elvira Nava , CHEMICAL PUMPER Other Provider Active Salazar Cabrera , DO Attending Provider, Other Provider Active Naila Lema MD Other Provider Active Namrata Munoz , CHEMICAL PUMPER Other Provider Active Carole Lundy , CHEMICAL PUMPER Other Provider Active Rosanna Grullon MD Other Provider Active Girish Tolentino MD Other Provider Active Beryl Holguin , CHEMICAL PUMPER Other Provider Active Mabel Lackey , DO Other Provider Active Talita Noel RN Other Provider Active Teo Taylor MD Other Provider Active Ajit Cat Pettit , PROFESSOR OF EXERCISE SCIENCE-C Primary Care Provider Active Team Status: Inactive Member Role Status Dates Ajit Cat Pettit , PROFESSOR OF EXERCISE SCIENCE-C Primary Care Provider Active Diego Noble , DO Emergency Provider Active Team Status: Inactive Member Role Status Dates Ajit Cat [place] , PROFESSOR OF EXERCISE SCIENCE-C Attending Provider Active Start: January 18, 2024 End: January 18, 2024 Team Status: Inactive Member Role Status Dates Ajit Lariossic , PROFESSOR OF EXERCISE SCIENCE-C Primary Care Provi tirso, Attending Provider Active Start: January 21, 2024 End: January 21, 2024 Team Status: Inactive Member Role Status Dates Ajit Cat Lariossic , PROFESSOR OF EXERCISE SCIENCE-C Primary Care Provi tirso, Attending Provider Active Start: February 04, 2024 End: February 04, 2024 Team Status: Inactive Member Role Status Dates Ajit Cat Lariossic , PROFESSOR OF EXERCISE SCIENCE-C Primary Care Provi tirso, Attending Provider Active Start: February 09, 2024 End: February 09, 2024 Team Status: Inactive Member Role Status Dates Ajit Cat Lariossic , PROFESSOR OF EXERCISE SCIENCE-C Primary Care Provider Active Start: February 21, 2024 End: February 21, 2024 Kyler Miramontes MD Attending Provider Active Sta rt: February 21, 2024 End: February 21, 2024 Team Status: Inactive Member Role Status Dates Ajit Cat [place] , PROFESSOR OF EXERCISE SCIENCE-C Primary Care Provider Active Start: March 01, 2024 End: March 01, 2024 Kyler Miramontes MD Attending Provider Active Sta rt: March 01, 2024 End: March 01, 2024 Team Status: Active Member Role Status Dates Ajit Cat [place] , PROFESSOR OF EXERCISE SCIENCE-C Primary Care Provider Active Start: March 01, 2024 Kyler Miramontes MD Attending Provider, Other Provider Active Start: March 01, 2024 Team Status: Inactive Member Role Status Dates Ajit Pettit PROFESSOR OF EXERCISE SCIENCE-C Primary Care Provider Active Start: March 02, 2024 End: March 02, 2024 Kyler Miramontes MD Attending Provider Active Sta rt: March 02, 2024 End: March 02, 2024 Team Status: Inactive Member Role Status Dates Ajit Pettit PROFESSOR OF EXERCISE SCIENCE-C Primary Care Provider Active Start: March 08, 2024 End: March 08, 2024 Kyler Miramontes MD Attending Provider Active Sta rt: March 08, 2024 End: March 08, 2024 Team Status: Inactive Member Role Status Dates Ajit Pettit PROFESSOR OF EXERCISE SCIENCE-C Primary Care Provider Active Start: March 16, 2024 End: March 16, 2024 Abi Sunshine DO Attending Provider Active St art: March 16, 2024 End: March 16, 2024 Team Status: Active Member Role Status Dates Ajit Pettit PROFESSOR OF EXERCISE SCIENCE-C Primary Care Provider Active Start: March 16, [...] BE BASED ON THE PRIMARY CLINICAL RECORDS. [employer] provides no warranty or guarantee of the accuracy or completeness of information in this document.
--- NOTE | 2024-04-03 08:08 | ED.GENADUL1 ---
HPI HPI - General Adult General Chief complaint: Headache Stated complaint: MIGRAINE/HEADACHE Time Seen by Provider: 04/03/24 08:00 Source: patient Mode of arrival: walk-in History of Present Illness HPI narrative: 44-year-old female presents to the emergency department for a headache. It started yesterday and this time it is in the back of her head and it goes towards the top of her head. No trauma fever or stiff neck. Its moderate to severe and continuous. It was not of sudden onset. She had been here just over a week ago for headache. It has been years since she has had a CAT scan. Related Data Home Medications ?Medication ?Instructions ?Recorded ?Confirmed cariprazine 1.5 mg capsule 1.5 mg PO DAILY 04/20/23 04/03/24 (Vraylar) diazepam 5 mg tablet 5 mg PO DAILY 04/20/23 04/03/24 divalproex 250 mg tablet,delayed 250 mg PO DAILY 04/20/23 04/03/24 release divalproex 500 mg tablet,extended 500 mg PO DAILY 04/20/23 04/03/24 release 24 hr doxazosin 2 mg tablet 2 mg PO DAILY 04/20/23 04/03/24 dulaglutide 0.75 mg/0.5 mL 0.75 mg subcut DAILY 04/20/23 04/03/24 subcutaneous pen injector (Trulicity) dulaglutide 1.5 mg/0.5 mL 1.5 mg subcut DAILY 04/20/23 04/03/24 subcutaneous pen injector (Trulicity) ergocalciferol (vitamin D2) 1,250 1,250 mcg PO DAILY 04/20/23 04/03/24 mcg (50,000 unit) capsule ferrous sulfate 325 mg (65 mg 325 mg PO DAILY 04/20/23 04/03/24 iron) tablet (FeroSul) gabapentin 800 mg tablet 800 mg PO DAILY 04/20/23 04/03/24 metformin 500 mg tablet,extended 500 mg PO DAILY 04/20/23 04/03/24 release 24 hr tizanidine 4 mg capsule 8 mg PO BID PRN muscle spasticity 04/20/23 04/03/24 dulaglutide 3 mg/0.5 mL 3 mg subcut .weekly 03/26/24 04/03/24 subcutaneous pen injector (Trulicity) ketorolac 10 mg tablet 10 mg PO Q6H PRN pain 03/26/24 04/03/24 meloxicam 15 mg tablet 15 mg PO DAILY 03/26/24 04/03/24 multivitamin-ferrous 1 tab PO Q24H 03/26/24 04/03/24 fumarate-folic acid 18 mg-400 mcg tablet (Spectravite Women) ondansetron HCl 4 mg tablet 4 mg PO PRN nausea and vomiting 03/26/24 sertraline 100 mg tablet 100 mg PO Q24H 03/26/24 04/03/24 simvastatin 20 mg tablet 20 mg PO DAILY 03/26/24 04/03/24 tizanidine 4 mg tablet 4 mg PO Q8H PRN muscle spasticity 03/26/24 04/03/24 Previous Rx's ?Medication ?Instructions ?Recorded lnavlprxuk-rrkmcwtqnnuin-bjpcrasl 1 cap PO Q6H PRN pain 5 days #20 04/03/24 50 mg-300 mg-40 mg capsule caps (Fioricet) Allergies Allergy/AdvReac Type Severity Reaction Status Date / Time metoclopramide [From Reglan] Allergy Intermediate shaking Verified 04/03/24 10:07 amitriptyline Allergy dizzy Verified 03/26/24 03:42 latex Allergy hives Verified 03/26/24 03:42 sulfamethoxazole Allergy Hives Verified 03/26/24 03:42 [From Bactrim] tramadol [From Ultram] Allergy seizures Verified 03/26/24 03:42 trimethoprim [From Bactrim] Allergy Hives Verified 03/26/24 03:42 Opioid HPI Opioid Management Most Recent Opioid Data: Last Pain Scale 5 04/03/24 11:16 Last ED Pain Assessment 04/03/24 11:16 Last MAR Pain Assessment 04/03/24 10:24 Review of Systems ROS Narrative A ten point review of systems is negative except as noted above. PFSH PFSH Social History Smoking status: Current every day smoker Exam Narrative Exam Narrative: Nurses note and vital signs reviewed and patient is not hypoxic. General: The patient appears well and in no apparent distress. Patient is resting comfortably on cart. Skin: Warm, dry, no pallor noted. There is no rash noted. Head: Normocephalic, atraumatic Eye: Normal conjunctiva, no drainage, EOMI. PERRL Ears, Nose, Mouth, and Throat: oral mucosa is moist. Nares patent. Cardiovascular: Regular Rate and Rhythm Respiratory: Patient is in no distress, no accessory muscle use, lungs are clear to auscultation, no wheezing, rales or rhonchi Back: non-tender GI: Soft and nontender Musculoskeletal: The patient has no evidence of calf tenderness, no pitting edema, symmetrical pulses noted bilaterally Neurological: A&O, normal speech; upper and lower extremity strength intact and symmetric Psychiatric: Cooperative Constitutional Vital Signs, click to edit/add: Last Vital Signs Temp 97.7 F 04/03/24 07:46 Pulse 89 04/03/24 07:46 Resp 15 04/03/24 07:46 BP 137/97 H 04/03/24 07:46 Pulse Ox 98 04/03/24 09:06 O2 Del Method Room Air 04/03/24 09:06 Course Vital Signs Vital signs: Vital Signs Temperature 97.7 F 04/03/24 07:46 Pulse Rate 89 04/03/24 07:46 Respiratory Rate 15 04/03/24 07:46 Blood Pressure 137/97 H 04/03/24 07:46 Pulse Oximetry 100 04/03/24 07:46 Oxygen Delivery Method Room Air 04/03/24 07:46 Temperature 97.7 F 04/03/24 07:46 Pulse Rate 89 04/03/24 07:46 Respiratory Rate 15 04/03/24 07:46 Blood Pressure 137/97 H 04/03/24 07:46 Pulse Oximetry 98 04/03/24 09:06 Oxygen Delivery Method Room Air 04/03/24 09:06 Medical Decision Making MDM Narrative Medical decision making narrative: Her workup including CAT scan is negative. I do not suspect meningitis. WBC appears to always be elevated. She does not have a fever or other symptoms of meningitis. She is feeling mildly improved with multiple medications given here and she is discharged home on Fioricet. Treatment diagnosis and follow-up were discussed with the patient. Differential Diagnosis Differential Diagnosis: Migraine headache, nonspecific headache, intracranial hemorrhage Lab Data Lab results reviewed: Yes I reviewed the patient's lab results Labs: Lab Results 04/03/24 Range/Units 08:00 WBC 16.7 H (4.0-11.0) 10^3/uL RBC 4.46 (4.20-5.40) 10^6/uL Hgb 13.4 (12.0-16.0) g/dL Hct 40.1 (36.0-48.0) % MCV 89.9 (81.0-99.0) fL MCH 30.0 (26.7-34.0) pg MCHC 33.4 (29.9-35.2) g/dL RDW 12.9 (11.0-15.0) % Plt Count 361 (150-450) 10^3/uL MPV 8.7 L (9.5-13.5) fL Seg Neuts % (Manual) 62.0 Lymphocytes % (Manual) 36.0 (20.5-60.0) % Monocytes % (Manual) 2.0 (1.7-12.0) % Eosinophils % (Manual) 0.0 L (0.9-7.0) % Basophils % (Manual) 0.0 L (0.2-2.0) % Neutrophils # (Manual) 10.35 H (1.4-6.5) 10^3/uL Lymphocytes # (Manual) 6.01 H (1.20-3.80) 10^3/uL Monocytes # (Manual) 0.33 (0.30-0.80) 10^3/uL Eosinophils # (Manual) 0.00 (0.00-0.70) 10^3/uL Basophils # (Manual) 0.00 (0.00-0.10) 10^3/uL Sodium 132 L (136-145) mmol/L Potassium 3.9 (3.5-5.1) mmol/L Chloride 97 L (98-107) mmol/L Carbon Dioxide 24.6 (21.0-32.0) mmol/L Anion Gap 14.3 BUN 8.0 (7.0-18.0) mg/dL Creatinine 0.74 (0.55-1.02) mg/dL Est GFR ( Amer) >60 (>=60) Est GFR (Non-Af Amer) >60 (>=60) BUN/Creatinine Ratio 10.8 Glucose 137 H (74-106) mg/dL Calcium 8.4 L (8.5-10.1) mg/dL Imaging Data CT scan - head: Radiologist's impression: ITS Impressions Head CT 04/03/24 08:23 IMPRESSION: CT head study fails to demonstrate evidence of acute bleed or focal mass. No obvious acute process. 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 Likely streak artifact in the left frontal region. Electronically authenticated by: BOBY HENRIQUEZ Date: 04/03/2024 08:51 Discharge Plan Discharge Stand Alone Forms: Portal Instructions Chief Complaint: Headache Clinical Impression: Headache Patient Disposition: Home, Self-Care Time of Disposition Decision: 11:14 Condition: Good Mode of Transportation: Private Vehicle Prescriptions / Home Meds: New qcomrcbtlg-zxkdxogowzppn-sppm [Fioricet] 50-300-40 mg capsule 1 cap PO Q6H PRN (Reason: pain) 5 Days Qty: 20 0RF No Action Trulicity 3 mg/0.5 mL pen injector 3 mg SUBCUT .weekly ketorolac 10 mg tablet 10 mg PO Q6H PRN (Reason: pain) meloxicam 15 mg tablet 15 mg PO DAILY Spectravite Women 18-400 mg-mcg tablet 1 tab PO Q24H ondansetron HCl 4 mg tablet 4 mg PO PRN (Reason: nausea and vomiting) sertraline 100 mg tablet 100 mg PO Q24H simvastatin 20 mg tablet 20 mg PO DAILY tizanidine 4 mg tablet 4 mg PO Q8H PRN (Reason: muscle spasticity) Vraylar 1.5 mg capsule 1.5 mg PO DAILY diazepam 5 mg tablet 5 mg PO DAILY divalproex 250 mg tablet,delayed release (DR/EC) 250 mg PO DAILY divalproex 500 mg tablet extended release 24 hr 500 mg PO DAILY doxazosin 2 mg tablet 2 mg PO DAILY Trulicity 0.75 mg/0.5 mL pen injector 0.75 mg SUBCUT DAILY Trulicity 1.5 mg/0.5 mL pen injector 1.5 mg SUBCUT DAILY ergocalciferol (vitamin D2) 1,250 mcg (50,000 unit) capsule 1,250 mcg PO DAILY ferrous sulfate [FeroSul] 325 mg (65 mg iron) tablet 325 mg PO DAILY gabapentin 800 mg tablet 800 mg PO DAILY tizanidine 4 mg capsule 8 mg PO BID PRN (Reason: muscle spasticity) metformin 500 mg tablet extended release 24 hr 500 mg PO DAILY Print Language: Uzbek Instructions: Acute Headache (ED) Referrals: Physician,Non-Staff, MD [Primary Care Provider] - 1 week
[2024-04-03 08:16] LABS: Hematocrit 40.1 % (36.0-48.0); Hemoglobin 13.4 g/dL (12.0-16.0); Mean Corpuscular HGB Conc 33.4 g/dL (29.9-35.2); Mean Corpuscular Volume 89.9 fL (81.0-99.0); Mean Platelet Volume 8.7 fL (9.5-13.5); Platelet Count 361 10^3/uL (150-450); Red Blood Count 4.46 10^6/uL (4.20-5.40); Red Cell Distribution Width 12.9 % (11.0-15.0); White Blood Count 16.7 10^3/uL (4.0-11.0)
[2024-04-03] MEDS: 0.9 % SODIUM CHLORIDE 1,000 ML 1000 ML IV (08:18)
[2024-04-03] MEDS: METHYLPREDNISOLONE SOD SUCC PF 125 MG/2 ML VIAL IVP (08:18)
[2024-04-03] MEDS: ONDANSETRON PF 4 MG/2 ML VIAL IV (08:19)
[2024-04-03] MEDS: KETOROLAC TROMETHAMINE 30 MG/ML VIAL IVP (08:21)
--- NOTE | 2024-04-03 08:23 | CT_ITS ---
The [address] [address] Patient Name: RACHEL MCGARRY MRN: [id number] date: 1980 Sex: F Assigned Patient Location: ER Current Patient Location: ER Accession/Order Number: [id number] Exam Date: 04/03/2024 08:18 Report Date: 04/03/2024 08:51 At the request of: ELISHA WESTFALL Procedure: CT head/brain wo con EXAM: CT head/brain wo con HISTORY: NINA COMPARISON: CT head study dated 05/11/2021 TECHNIQUE: CT head study was performed without the use of intravenous contrast. Multiple axial images were obtained. Reformatted coronal and sagittal images were obtained and reviewed. FINDINGS: CSF spaces are grossly unremarkable in appearance. No evidence of mass effect or midline shift. No acute intracranial hemorrhage is identified. No evidence of focal mass lesion is seen. Focal linear area of increased attenuation in the left frontal lobe region felt to represent streak artifact. 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 No obvious acute vascular territory cortical infarction. Calvarium appears intact. Visualized mastoid air cells appear grossly unremarkable as do the intraorbital regions. CT/CT head/brain wo con IMPRESSION: CT head study fails to demonstrate evidence of acute bleed or focal mass. No obvious acute process. 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 Likely streak artifact in the left frontal region. Electronically authenticated by: BOBY HENRIQUEZ Date: 04/03/2024 08:51
[2024-04-03 08:26] LABS: Anion Gap 14.3; BUN Creatinine Ratio 10.8; Calcium 8.4 mg/dL (8.5-10.1); Carbon Dioxide 24.6 mmol/L (21.0-32.0); Chloride 97 mmol/L (98-107); Estimated GFR (African America >60 (>=60); Estimated GFR (Non-African Ame >60 (>=60); Glucose 137 mg/dL (74-106); Potassium 3.9 mmol/L (3.5-5.1); Sodium 132 mmol/L (136-145)
[2024-04-03 08:56] LABS: Lymphocytes Absolute Manual 6.01 10^3/uL (1.20-3.80); Monocytes Absolute Manual 0.33 10^3/uL (0.30-0.80); Segmented Neut Absolute Manual 10.35 10^3/uL (1.4-6.5)
[2024-04-03 09:06] VITALS: O2SAT 98
[2024-04-03] MEDS: PROMETHAZINE HCL 12.5 MG in 0.9 % SODIUM CHLORIDE 50 ML 202 MG IV (10:05)
[2024-04-03] MEDS: HYDROMORPHONE HCL 1 MG/ML CARTRIDGE IV (10:24)
== END 2024-04-03 11:34 | disposition home or self-care (01) ==
PROVIDERS: Emergency Provider Emergency Medicine
DX: R51.9 Headache, unspecified (principal); F17.200 Nicotine dependence, unspecified, uncomplicated
CPT/HCPCS: 36415; 70450; 80048; 85007; 85027; 96365; 96375; 99284; J1170; J1885; J2250; J2405; J2919

== ENCOUNTER 2024-07-06 10:44 | Emergency (ER) | payer OTHER, SELFPAY ==
[2024-07-06 10:50] VITALS: BP 126/87; PULSE 98; TEMP 36.9; O2SAT 98; BMI 24.5
--- NOTE | 2024-07-06 11:10 | ED_ITS ---
HPI HPI - General Adult General Chief complaint: Recheck/Abnormal Lab/Rx Stated complaint: CLINIC REFERRAL, ABNORMAL LABS Time Seen by Provider: 07/06/24 10:47 Source: patient Mode of arrival: walk-in Limitations: no limitations History of Present Illness HPI narrative: 44-year-old female presented for low sodium. She had this testing done as an outpatient and she was contacted by her doctor and told to go to the emergency room. She has been feeling a little bit off balance and a little bit dizzy. She has not had a fever or cough or vomiting or diarrhea. She has no history of renal issues. She does not have a headache or abdominal pain or back pain. She states she really does not drink any water. She drinks coffee and Pepsi and she has been drinking some Gatorade recently. Related Data Home Medications ?Medication ?Instructions ?Recorded ?Confirmed cariprazine 1.5 mg capsule 1.5 mg PO DAILY 04/20/23 04/03/24 (Vraylar) diazepam 5 mg tablet 5 mg PO DAILY 04/20/23 04/03/24 divalproex 250 mg tablet,delayed 250 mg PO DAILY 04/20/23 04/03/24 release divalproex 500 mg tablet,extended 500 mg PO DAILY 04/20/23 04/03/24 release 24 hr doxazosin 2 mg tablet 2 mg PO DAILY 04/20/23 04/03/24 dulaglutide 0.75 mg/0.5 mL 0.75 mg subcut DAILY 04/20/23 04/03/24 subcutaneous pen injector (Trulicity) dulaglutide 1.5 mg/0.5 mL 1.5 mg subcut DAILY 04/20/23 04/03/24 subcutaneous pen injector (Trulicity) ergocalciferol (vitamin D2) 1,250 1,250 mcg PO DAILY 04/20/23 04/03/24 mcg (50,000 unit) capsule ferrous sulfate 325 mg (65 mg 325 mg PO DAILY 04/20/23 04/03/24 iron) tablet (FeroSul) gabapentin 800 mg tablet 800 mg PO DAILY 04/20/23 04/03/24 metformin 500 mg tablet,extended 500 mg PO DAILY 04/20/23 04/03/24 release 24 hr tizanidine 4 mg capsule 8 mg PO BID PRN muscle spasticity 04/20/23 04/03/24 dulaglutide 3 mg/0.5 mL 3 mg subcut .weekly 03/26/24 04/03/24 subcutaneous pen [facility] ketorolac 10 mg tablet 10 mg PO Q6H PRN pain 03/26/24 04/03/24 meloxicam 15 mg tablet 15 mg PO DAILY 03/26/24 04/03/24 multivitamin-ferrous 1 tab PO Q24H 03/26/24 04/03/24 fumarate-folic acid 18 mg-400 mcg tablet (Spectravite Women) ondansetron HCl 4 mg tablet 4 mg PO PRN nausea and vomiting 03/26/24 sertraline 100 mg tablet 100 mg PO Q24H 03/26/24 04/03/24 simvastatin 20 mg tablet 20 mg PO DAILY 03/26/24 04/03/24 tizanidine 4 mg tablet 4 mg PO Q8H PRN muscle spasticity 03/26/24 04/03/24 Previous Rx's ?Medication ?Instructions ?Recorded szcsexytow-jxdnavtvyiytz-fouiyjzt 1 cap PO Q6H PRN pain 5 days #20 04/03/24 50 mg-300 mg-40 mg capsule caps (Fioricet) Allergies Allergy/AdvReac Type Severity Reaction Status Date / Time metoclopramide [From Reglan] Allergy Intermediate shaking Verified 07/06/24 10:53 amitriptyline Allergy dizzy Verified 07/06/24 10:53 latex Allergy hives Verified 07/06/24 10:53 sulfamethoxazole Allergy Hives Verified 07/06/24 10:53 [From Bactrim] tramadol [From Ultram] Allergy seizures Verified 07/06/24 10:53 trimethoprim [From Bactrim] Allergy Hives Verified 07/06/24 10:53 Opioid HPI Opioid Management Most Recent Opioid Data: Last Pain Scale 5 04/03/24 11:16 Review of Systems ROS Narrative A ten point review of systems is negative except as noted above. PFSH PFSH Social History Smoking status: Current every day smoker Little interest or pleasure in doing things: not at all Feeling down, depressed, or hopeless: not at all Exam Narrative Exam Narrative: Nurses note and vital signs reviewed and patient is not hypoxic. General: The patient appears well and in no apparent distress. Patient is resting comfortably on cart. Skin: Warm, dry, no pallor noted. There is no rash noted. Head: Normocephalic, atraumatic Eye: Normal conjunctiva, no drainage Ears, Nose, Mouth, and Throat: oral mucosa is moist. Nares patent. Cardiovascular: Regular Rate and Rhythm Respiratory: Patient is in no distress, no accessory muscle use, lungs are clear to auscultation, no wheezing, rales or rhonchi Back: non-tender GI: Soft and nontender Musculoskeletal: The patient has no evidence of calf tenderness, no pitting edema, symmetrical pulses noted bilaterally Neurological: A&O, normal speech Psychiatric: Cooperative Constitutional Vital Signs, click to edit/add: Last Vital Signs Temp 98.4 F 07/06/24 10:50 Pulse 98 H 07/06/24 10:50 Resp 16 07/06/24 10:50 BP 126/87 07/06/24 10:50 Pulse Ox 98 07/06/24 10:50 O2 Del Method Room Air 07/06/24 10:50 Course Vital Signs Vital signs: Vital Signs Temperature 98.4 F 07/06/24 10:50 Pulse Rate 98 H 07/06/24 10:50 Respiratory Rate 16 07/06/24 10:50 Blood Pressure 126/87 07/06/24 10:50 Pulse Oximetry 98 07/06/24 10:50 Oxygen Delivery Method Room Air 07/06/24 10:50 Temperature 98.4 F 07/06/24 10:50 Pulse Rate 98 H 07/06/24 10:50 Respiratory Rate 16 07/06/24 10:50 Blood Pressure 126/87 07/06/24 10:50 Pulse Oximetry 98 07/06/24 10:50 Oxygen Delivery Method Room Air 07/06/24 10:50 Medical Decision Making MDM Narrative Medical decision making narrative: Sodium is low at 129. Reviewing her previous blood test she tends to run on the low side, in the 130-132 range. She was offered admission today but she does not want to be admitted to the hospital and does not feel it is necessary. She states her symptoms are not so bad that she is falling. She was recommended to have prompt follow-up with her doctor or return to the emergency department if symptoms worsen. Treatment diagnosis and follow-up were discussed with the patient. Differential Diagnosis Differential Diagnosis: Hyponatremia, excess water ingestion, SIADH Lab Data Lab results reviewed: Yes I reviewed the patient's lab results Labs: Lab Results 07/06/24 07/06/24 Range/Units 11:26 11:36 WBC 18.4 H (4.0-11.0) 10^3/uL RBC 4.58 (4.20-5.40) 10^6/uL Hgb 13.8 (12.0-16.0) g/dL Hct 40.9 (36.0-48.0) % MCV 89.3 (81.0-99.0) fL MCH 30.1 (26.7-34.0) pg MCHC 33.7 (29.9-35.2) g/dL RDW 12.8 (11.0-15.0) % Plt Count 341 (150-450) 10^3/uL MPV 8.7 L (9.5-13.5) fL Seg Neuts % (Manual) 70.0 (43.0-75.0) Lymphocytes % (Manual) 24.0 (20.5-60.0) % Monocytes % (Manual) 6.0 (1.7-12.0) % Eosinophils % (Manual) 0.0 L (0.9-7.0) % Basophils % (Manual) 0.0 L (0.2-2.0) % Neutrophils # (Manual) 12.88 H (1.4-6.5) 10^3/uL Lymphocytes # (Manual) 4.41 H (1.20-3.80) 10^3/uL Monocytes # (Manual) 1.10 H (0.30-0.80) 10^3/uL Eosinophils # (Manual) 0.00 (0.00-0.70) 10^3/uL Basophils # (Manual) 0.00 (0.00-0.10) 10^3/uL Sodium 129 L (136-145) mmol/L Potassium 3.8 (3.5-5.1) mmol/L Chloride 94 L (98-107) mmol/L Carbon Dioxide 25.4 (21.0-32.0) mmol/L Anion Gap 13.4 BUN 10.0 (7.0-18.0) mg/dL Creatinine 0.68 (0.55-1.02) mg/dL Est GFR ( Amer) >60 (>=60 mL/min/1.73m^2) Est GFR (Non-Af Amer) >60 (>=60 mL/min/1.73m^2) BUN/Creatinine Ratio 14.7 Glucose 187 H (74-106) mg/dL Calcium 8.9 (8.5-10.1) mg/dL Magnesium 1.5 L (1.8-2.4) mg/dL Urine Color Yellow (YELLOW) Urine Clarity Sl cloudy (CLEAR) Urine pH 6.0 (5.0-9.0) Ur Specific [place] >=1.030 A (1.005-1.025) Urine Protein Negative (NEG/TRACE) mg/dL Urine Glucose (UA) >=1000 A (NEGATIVE) mg/dL Urine Ketones Negative (NEGATIVE) mg/dL Urine Occult Blood Negative (NEGATIVE) Urine Nitrite Negative (NEGATIVE) Urine Bilirubin Negative (NEGATIVE) Urine Urobilinogen 0.2 (0.2-1.0) EU/dL Ur Leukocyte Esterase Negative (NEGATIVE) Urine RBC 0-2 (0-2) #/HPF Urine WBC None seen (NONE SEEN) #/HPF Ur Squamous Epith Cells Many A (NONE/RARE) #/LPF Urine Crystals None seen (None Seen) #/HPF Urine Bacteria Trace A (NONE SEEN) #/HPF Urine Casts None seen (NONE SEEN) #/LPF Urine Mucus Large A (NONE SEEN) Ur Culture Indicated? No Discharge Plan Discharge Chief Complaint: Recheck/Abnormal Lab/Rx Clinical Impression: Hyponatremia Patient Disposition: Home, Self-Care Time of Disposition Decision: 12:14 Condition: Good Mode of Transportation: Private Vehicle Prescriptions / Home Meds: No Action Trulicity 3 mg/0.5 mL pen injector 3 mg SUBCUT .weekly ketorolac 10 mg tablet 10 mg PO Q6H PRN (Reason: pain) meloxicam 15 mg tablet 15 mg PO DAILY Spectravite Women 18-400 mg-mcg tablet 1 tab PO Q24H ondansetron HCl 4 mg tablet 4 mg PO PRN (Reason: nausea and vomiting) sertraline 100 mg tablet 100 mg PO Q24H simvastatin 20 mg tablet 20 mg PO DAILY tizanidine 4 mg tablet 4 mg PO Q8H PRN (Reason: muscle spasticity) qehslkhrsy-ccajhesqzhjyn-jpem [Fioricet] 50-300-40 mg capsule 1 cap PO Q6H PRN (Reason: pain) 5 Days Qty: 20 0RF Vraylar 1.5 mg capsule 1.5 mg PO DAILY diazepam 5 mg tablet 5 mg PO DAILY divalproex 250 mg tablet,delayed release (DR/EC) 250 mg PO DAILY divalproex 500 mg tablet extended release 24 hr 500 mg PO DAILY doxazosin 2 mg tablet 2 mg PO DAILY Trulicity 0.75 mg/0.5 mL pen injector 0.75 mg SUBCUT DAILY Trulicity 1.5 mg/0.5 mL pen injector 1.5 mg SUBCUT DAILY ergocalciferol (vitamin D2) 1,250 mcg (50,000 unit) capsule 1,250 mcg PO DAILY ferrous sulfate [FeroSul] 325 mg (65 mg iron) tablet 325 mg PO DAILY gabapentin 800 mg tablet 800 mg PO DAILY tizanidine 4 mg capsule 8 mg PO BID PRN (Reason: muscle spasticity) metformin 500 mg tablet extended release 24 hr 500 mg PO DAILY Print Language: Nepalese Instructions: Hyponatremia (ED) Additional Instructions: Follow-up promptly with your PCP. Return to ED if symptoms worsen. Referrals: Physician,Non-Staff, MD [Primary Care Provider] - 1 week
[2024-07-06 11:33] LABS: Hematocrit 40.9 % (36.0-48.0); Hemoglobin 13.8 g/dL (12.0-16.0); Mean Corpuscular HGB Conc 33.7 g/dL (29.9-35.2); Mean Corpuscular Hemoglobin 30.1 pg (26.7-34.0); Mean Corpuscular Volume 89.3 fL (81.0-99.0); Mean Platelet Volume 8.7 fL (9.5-13.5); Platelet Count 341 10^3/uL (150-450); Red Blood Count 4.58 10^6/uL (4.20-5.40); Red Cell Distribution Width 12.8 % (11.0-15.0); White Blood Count 18.4 10^3/uL (4.0-11.0)
--- OUTSIDE RECORDS SUMMARY | 2024-07-06 11:39 | XMS_ITS | CCD ---
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 Leukocytes [#/volume] correc cherie for nucleated erythrocytes in Blood by Automated counOrdered By: Ajit Pettit on 07-04-2024 WBC corrected for nucl RBC Auto (Bld) [#/Vol] 19.3 10*3/uL High 3.8-11.[address] [facility] Leukocytes [#/volume] in Blo od by Automated countOrdered By: Ajit Pettit on 07-04-2024 WBC (Bld) [#/Vol] 19.3 10*3/uL High 3.8-11.6 [facility] Comment on above: Performed By: #### C BC, CMP, LIPID ####[place] [id number] [address] Lipid Panelon 07-04-2024 LDL Cholesterol,Calculated 58 mg/dL Normal 0-100 [facility] Comment on above: Result Comment: LDL ATP III CLASSIFICATION LDL less than 100 mg/dL Optimal LDL 100-129 mg/dL Near or above optimal LDL 130-159 mg/dL Borderline high LDL 160-189 mg/dL High LDL greater than 189 mg/dL Very high Performed By: #### C BC, CMP, LIPID ####[place] [id number] [place] [id number] [facility] Triglyceride w/Reflex 393 mg/dL High 0-149 [facility] Comment on above: Result Comment: TRIG ATP III CLASSIFICATION TRIG less than 150 mg/dL Normal TRIG 150-199 mg/dL Borderline high TRIG 200-500 mg/dL High TRIG greater than 500 mg/dL Very high Standard traceable to the Center for Disease Conrtrol and Prevention (CDC) test method. Performed By: #### C BC, CMP, LIPID ####[address] VLDL CHOLESTEROL 78 mg/dL Normal [facility] Comment on above: Performed By: #### C BC, CMP, LIPID ####[address] Lymphocytes [#/volume] in Bl ood by Automated countOrdered By: Ajit Pettit on 07-04-2024 Lymphocytes (Bld) [#/Vol] 4.7 10*3/uL Normal 1.00-4.[address] [facility] Comment on above: Performed By: #### C BC, CMP, LIPID ####[address] Lymphocytes/100 leukocytes i n Blood by Automated countOrdered By: Ajit Pettit on 07-04-2024 Lymphocytes/100 WBC (Bld) 24.6 % Normal . [facility] Comment on above: Performed By: #### C BC, CMP, LIPID ####[address] MCH [Entitic mass] by Automa cherie countOrdered By: Ajit Pettit on 07-04-2024 MCH (RBC) [Entitic mass] 30.0 pg Normal 24.7-34.[address] [facility] Comment on above: Performed By: #### C BC, CMP, LIPID ####[address] MCHC Auto (RBC) [Mass/Vol]Or dered By: Ajit Pettit on 07-04-2024 MCHC (RBC) [Mass/Vol] 34.2 g/dL 32.0-35.0 [facility] MCV [Entitic volume] by Auto mated countOrdered By: Ajit Pettit on 07-04-2024 MCV (RBC) [Entitic vol] 87.9 fL Normal 80-100 [facility] Comment on above: Performed By: #### C BC, CMP, LIPID ####[address] Neutrophils [#/volume] in Bl ood by Automated countOrdered By: Ajit Pettit on 07-04-2024 Neutrophils (Bld) [#/Vol] 12.8 10*3/uL High 1.8-7.[address] [facility] Comment on above: Performed By: #### C BC, CMP, LIPID ####[place] [id number] [address] No Panel InformationOrdered By: Ajit Pettit on 07-04-2024 Estimated GFR (CKD-EPI) > 60.0 mL/Min [facility] Creatinine Clearance (Chem N/A [facility] Nucleated erythrocytes [Pres ence] in Blood by Automated countOrdered By: Ajit Pettit on 07-04-2024 Nucleated RBC Auto Ql (Bld) 0.1 /100{WBC} 0-0.[address] [facility] Platelet mean volume [Entiti c volume] in Blood by Automated countOrdered By: Ajit Pettit on 07-04-2024 Platelet mean volume (Bld) [Entitic vol] 7.0 fL Normal 6.3-10.[address] [facility] Comment on above: Performed By: #### C BC, CMP, LIPID ####[address] Platelets [#/volume] in Bloo d by Automated countOrdered By: Ajit Pettit on 07-04-2024 Platelets (Bld) [#/Vol] 350 10*3/uL Normal 150-[address] [facility] Comment on above: Performed By: #### C BC, CMP, LIPID ####[address] Potassium [Moles/volume] in Serum or PlasmaOrdered By: Ajit Pettit on 07-04-2024 Potassium [Moles/Vol] 4.6 mmol/L Normal 3.5-5.1 [facility] Comment on above: Performed By: #### C BC, CMP, LIPID ####[address] Protein [Mass/volume] in Ser um or PlasmaOrdered By: Ajit Pettit on 07-04-2024 Protein [Mass/Vol] 5.9 g/dL Low 6.4-8.9 [facility] Comment on above: Performed By: #### C BC, CMP, LIPID ####[place] [id number] [address] Serum globulin measurement b y calculation (mass/volume)Ordered By: Ajit Pettit on 07-04-2024 Globulin (S) [Mass/Vol] 2.1 g/dL Normal [facility] Comment on above: Performed By: #### C BC, CMP, LIPID ####[address] Serum or plasma albumin/glob ulin mass ratioOrdered By: Ajit Pettit on 07-04-2024 Albumin/Globulin [Mass ratio] 1.8 {ratio} Normal [facility] Comment on above: Performed By: #### C BC, CMP, LIPID ####[address] Serum or plasma anion gap de terminationOrdered By: Ajit Pettit on 07-04-2024 Anion gap [Moles/Vol] 13.4 mmol/L Normal 6.0-15.0 [facility] Comment on above: Performed By: #### C BC, CMP, LIPID ####[address] Serum or plasma high density lipoprotein (HDL) cholesterol measurementOrdered By: Ajit Pettit on 07-04-2024 Cholesterol in HDL [Mass/Vol] 48 mg/dL Normal 23-[address] [facility] Comment on above: HDL CHOL ATP-III CLA SSIFICATION Cardiovascular RiskHDL > or equal to 60 mg/dL LOWHDL < 40 mg/dL HIGH Result Comment: HDL CHOL ATP-III CLASSIFICATION Cardiovascular Risk HDL > or equal to 60 mg/dL LOW HDL < 40 mg/dL HIGH Performed By: #### C BC, CMP, LIPID ####[address] Serum or plasma total choles terol/high density lipoprotein (HDL) cholesterol mass ratOrdered By: Ajit Pettit on 07-04-2024 Cholesterol.total/Suellen sterol in HDL [Mass ratio] 3.9 {ratio} Normal <5.[address] [facility] Comment on above: Result Comment: PERF ORMED BY: [facility] [address] [place] [address] PATHOLOGIST FLOOR CLEANER RIDGE HUERTA M.D. Performed By: #### C BC, CMP, LIPID ####[place] [id number] [address] Sodium [Moles/volume] in Ser um or PlasmaOrdered By: Ajit Pettit on 07-04-2024 Sodium [Moles/Vol] 130 mmol/L Low 136-145 [facility] Comment on above: Performed By: #### C BC, CMP, LIPID ####[place] [id number] [address] Triglyceride [Mass/volume] i n Serum or PlasmaOrdered By: Ajit Pettit on 07-04-2024 Triglyceride [Mass/Vol] 393 mg/dL High 0-149 [facility] Comment on above: TRIG ATP III CLASSIF ICATIONTRIG less than 150 mg/dL NormalTRIG 150-199 mg/dL Borderline highTRIG 200-500 mg/dL High TRIG greater than 500 mg/dL Very highStandard traceable to the Center for Disease Conrtrol and Prevention (CDC) test method. Urea nitrogen [Mass/volume] in Serum or PlasmaOrdered By: Ajit Pettit on 07-04-2024 Urea nitrogen [Mass/Vol] 6 mg/dL Low 7-[address] [facility] Comment on above: Performed By: #### C BC, CMP, LIPID ####[place] [id number] [address] MR lumbar spine wo conon MR lumbar spine wo con [facility] [address] [place] [address] [place] [address] MRI Report Signed Patient: Rachel Mcgarry MR#: [id number] 1 : 1980 Acct:[id number] Age/Sex: 44 / F ADM Date: 06/08/24 Loc: [facility] Room: Type: [facility] CLI Attending Dr: Ajit DEJESUS Copies to: OLEG Sharp Ordering Provider: OLEG Sharp Date of Service: 06/08/24 MR/MR lumbar spine wo con: Lumbar radiculopathy;Lumbar disc disorder with myelopathy;Sc MR lumbar spine wo con 06/08/2024 12:15 PM SIGNS AND SYMPTOMS: Chronic low back pain radiating into lower extremities with numbness and tingling PROTOCOL: Multiplanar multisequence MR images of the lumbar spine were obtained without IV contrast COMPARISON: 10/17/2021 FINDINGS: The bones of the lumbar spine are in anatomic alignment. There is preservation of vertebral body heights. There is disc desiccation and mild to moderate disc height loss at L3-L4 and L4-L5. The marrow signal is within normal limits. The conus terminates at the inferior endplate of the L1 vertebral body level. No epidural or paraspinous fluid collection is appreciated. At T12-L1: There is a normal disc, central canal, and neural foramen. At L1-L2: There is a normal disc, central canal, and neural foramen. At L2-L3: There is a normal disc, central canal, and neural foramen. At L3-L4: There is a broad-based disc bulge with facet hypertrophy. There is mild left neural foraminal narrowing. There is mild spinal canal stenosis. This is similar to the prior exam. At L4-L5: There is a broad-based disc bulge. There is facet hypertrophy with ligamentum flavum thickening and a small facet effusion on the right. There is mild spinal canal stenosis with mild left and moderate right neural foraminal narrowing. This is similar to the prior exam. At L5-S1: There is a normal disc, central canal, and neural foramen. There is prominence of the epidural fat consistent with epidural lipomatosis. MR/MR lumbar spine wo con IMPRESSION: At L3-L4: There is a broad-based disc bulge with facet hypertrophy. There is mild left neural foraminal narrowing. There is mild spinal canal stenosis. This is similar to the prior exam. At L4-L5: There is a broad-based disc bulge. There is facet hypertrophy with ligamentum flavum thickening and a small facet effusion on the right. There is mild spinal canal stenosis with mild left and moderate right neural foraminal narrowing. This is similar to the prior exam. At L5-S1: There is a normal disc, central canal, and neural foramen. There is prominence of the epidural fat consistent with epidural lipomatosis. Impression dictated by: Dar Messnia M.D.06/08/2024 4:52 PM Dictation Location: [place] [address] Transcribed By: [facility] 06/08/24 165 Dictated By: Dar Messina II, MD 06/08/24 1643 Signed By: 06/08/24 165 Normal [facility] A1C with Estimated Average G marilee 05-16-2024 Glucose [Mass/Vol] 137 mg/dL Normal [facility] Comment on above: Order Comment: Reaso n for Exam Type 2 diabetes mellitus without complication, without long- Result Comment: PERF ORMED BY: [place] [address] PATHOLOGIST FLOOR CLE[employer]ER RIDGE HUERTA M.D. Performed By: #### C BC, CMP, LDLD, FE and TIBC, LIPID, URMA #### [facility] [address] [place] [address] [place] Alanine aminotransferase [En zymatic activity/volume] in Serum or PlasmaOrdered By: Ajit Pettit on 05-16-2024 ALT [Catalytic activity/Vol] 11 U/L Normal 7-[address] [facility] Comment on above: Order Comment: Reaso n for Exam Type 2 diabetes mellitus without complication, without long- Performed By: #### C BC, CMP, LDLD, FE and TIBC, LIPID, URMA #### [facility] [address] [place] [address] [place] Albumin [Mass/volume] in Ser um or Plasma by Bromocresol green (BCG) dye binding methoOrdered By: Ajit Pettit on 05-16-2024 Albumin BCG dye [Mass/Vol] 4.2 g/dL 3.5-5.[address] [facility] Alkaline phosphatase [Enzyma tic activity/volume] in Serum or PlasmaOrdered By: Ajit Pettit on 05-16-2024 ALP [Catalytic activity/Vol] 62 U/L Normal 34-[address] [facility] Comment on above: Order Comment: Reaso n for Exam Type 2 diabetes mellitus without complication, without long- Performed By: #### C BC, CMP, LDLD, FE and TIBC, LIPID, URMA #### [facility] [address] Aspartate aminotransferase [ Enzymatic activity/volume] in Serum or PlasmaOrdered By: Ajit Pettit on 05-16-2024 AST [Catalytic activity/Vol] 11 U/L Low 13-[address] [facility] Comment on above: Order Comment: Reaso n for Exam Type 2 diabetes mellitus without complication, without long- Performed By: #### C BC, CMP, LDLD, FE and TIBC, LIPID, URMA #### [facility] [address] Automated basophil %Ordered By: Ajit Pettit on 05-16-2024 Basophils/100 WBC (Bld) 0.6 % Normal . [facility] Comment on above: Order Comment: Reaso n for Exam Type 2 diabetes mellitus without complication, without long- Performed By: #### C BC, CMP, LDLD, FE and TIBC, LIPID, URMA #### [facility] [address] Automated basophil countOrde red By: Ajit Pettit on 05-16-2024 Basophils (Bld) [#/Vol] 0.1 10*3/uL Normal 0.0-0.[address] [facility] Comment on above: Order Comment: Reaso n for Exam Type 2 diabetes mellitus without complication, without long- Result Comment: PERF ORMED BY: [place] [address] PATHOLOGIST FLOOR CLEANER RIDGE HUERTA M.D. Performed By: #### C BC, CMP, LDLD, FE and TIBC, LIPID, URMA #### [facility] [address] Automated blood monocyte cou ntOrdered By: Ajit Pettit on 05-16-2024 Monocytes (Bld) [#/Vol] 0.7 10*3/uL Normal 0.0-0.[address] [facility] Comment on above: Order Comment: Reaso n for Exam Type 2 diabetes mellitus without complication, without long- Performed By: #### C BC, CMP, LDLD, FE and TIBC, LIPID, URMA #### [facility] [address] [place] [address] [place] Automated eosinophil %Ordere d By: Ajit Spasic on 05-16-2024 Eosinophils/100 WBC (Bld) 0.4 % Normal . [facility] Comment on above: Order Comment: Reaso n for Exam Type 2 diabetes mellitus without complication, without long- Performed By: #### C BC, CMP, LDLD, FE and TIBC, LIPID, URMA #### [facility] [address] [place] [address] Automated eosinophil countOr dered By: Ajit Yanac on 05-16-2024 Eosinophils (Bld) [#/Vol] 0.1 10*3/uL Normal 0.0-0.[address] [facility] Comment on above: Order Comment: Reaso n for Exam Type 2 diabetes mellitus without complication, without long- Performed By: #### C BC, CMP, LDLD, FE and TIBC, LIPID, URMA #### [facility] [address] [place] [address] [place] Automated monocyte %Ordered By: Ajit Yanac on 05-16-2024 Monocytes/100 WBC (Bld) 4.4 % Normal . [facility] Comment on above: Order Comment: Reaso n for Exam Type 2 diabetes mellitus without complication, without long- Performed By: #### C BC, CMP, LDLD, FE and TIBC, LIPID, URMA #### [facility] [address] [place] [address] [place] Automated neutrophil %Ordere d By: Ajit Spasic on 05-16-2024 Neutrophils/100 WBC (Bld) 61.6 % Normal . [facility] Comment on above: Order Comment: Reaso n for Exam Type 2 diabetes mellitus without complication, without long- Performed By: #### C BC, CMP, LDLD, FE and TIBC, LIPID, URMA #### [facility] [address] [place] [id number] [place] Bilirubin.total [Mass/volume ] in Serum or PlasmaOrdered By: Ajit Pettit on 05-16-2024 Bilirubin [Mass/Vol] 0.3 mg/dL Normal 0.3-1.0 [facility] Comment on above: Order Comment: Reaso n for Exam Type 2 diabetes mellitus without complication, without long- Performed By: #### C BC, CMP, LDLD, FE and TIBC, LIPID, URMA #### [facility] [address] [place] [id number] [place] Calcium [Mass/volume] in Ser um or PlasmaOrdered By: Ajit Pettit on 05-16-2024 Calcium [Mass/Vol] 9.0 mg/dL Normal 8.6-10.3 [facility] Comment on above: Order Comment: Reaso n for Exam Type 2 diabetes mellitus without complication, without long- Performed By: #### C BC, CMP, LDLD, FE and TIBC, LIPID, URMA #### [facility] [address] [place] [id number] [place] Carbon dioxide, total [Moles /volume] in Serum or PlasmaOrdered By: Ajit Pettit on 05-16-2024 CO2 [Moles/Vol] 26.0 mmol/L Normal 21.0-31.0 [facility] Comment on above: Order Comment: Reaso n for Exam Type 2 diabetes mellitus without complication, without long- Performed By: #### C BC, CMP, LDLD, FE and TIBC, LIPID, URMA #### [facility] [address] [place] [id number] [place] Chloride [Moles/volume] in S alissa or PlasmaOrdered By: Ajit Pettit on 05-16-2024 Chloride [Moles/Vol] 96 mmol/L Low 98-107 [facility] Comment on above: Order Comment: Reaso n for Exam Type 2 diabetes mellitus without complication, without long- Performed By: #### C BC, CMP, LDLD, FE and TIBC, LIPID, URMA #### [facility] [address] Cholesterol [Mass/volume] in Serum or PlasmaOrdered By: Ajit Pettit on 05-16-2024 Cholesterol [Mass/Vol] 237 mg/dL High 140-200 [facility] Comment on above: Chol less than 200 m g/dl low riskChol 201-239 mg/dl borderline riskChol 240 mg/dl and greater high risk Order Comment: Reaso n for Exam Type 2 diabetes mellitus without complication, without long- Result Comment: Chol less than 200 mg/dl low risk Chol 201-239 mg/dl borderline risk Chol 240 mg/dl and greater high risk Performed By: #### C BC, CMP, LDLD, FE and TIBC, LIPID, URMA #### [facility] [address] Cholesterol in LDL Calc [Mas s/Vol]Ordered By: Ajit Pettit on 05-16-2024 Cholesterol in LDL [Mass/Vol] 130 mg/dL High 0-[address] [facility] Comment on above: LDL ATP III CLASSIFI CATIONLDL less than 100 mg/dL OptimalLDL 100-129 mg/dL Near or above optimalLDL 130-159 mg/dL Borderline highLDL 160-189 mg/dL HighLDL greater than 189 mg/dL Very high Cholesterol in VLDL Calc [Ma ss/Vol]Ordered By: Ajit Pettit on 05-16-2024 Cholesterol in VLDL [Mass/Vol] 64 mg/dL [facility] Complete Blood Count Auto Di ffon 05-16-2024 Mean Corpuscular HGB Conc 34.3 g/dL Normal 32.0-35.0 [facility] Comment on above: Order Comment: Reaso n for Exam Type 2 diabetes mellitus without complication, without long- Performed By: #### C BC, CMP, LDLD, FE and TIBC, LIPID, URMA #### [facility] [address] NRBC% 0.1 /100{WBC} Normal 0-0.5 [facility] Comment on above: Order Comment: Reaso n for Exam Type 2 diabetes mellitus without complication, without long- Performed By: #### C BC, CMP, LDLD, FE and TIBC, LIPID, URMA #### [facility] [address] Comprehensive Metabolic Pane mark 05-16-2024 Albumin [Mass/Vol] 4.2 g/dL Normal 3.5-5.7 [facility] Comment on above: Order Comment: Reaso n for Exam Type 2 diabetes mellitus without complication, without long- Performed By: #### C BC, CMP, LDLD, FE and TIBC, LIPID, URMA #### [address] GFR/1.73 sq M.predicted MDRD (S/P/Bld) [Vol rate/Area] mL/min/{1.73_m2} Normal [facility] Comment on above: Order Comment: Reaso n for Exam Type 2 diabetes mellitus without complication, without long- Performed By: #### C BC, CMP, LDLD, FE and TIBC, LIPID, URMA #### [address] Creatinine [Mass/volume] in Serum or PlasmaOrdered By: Ajit Pettit on 05-16-2024 Creatinine [Mass/Vol] 0.47 mg/dL Low 0.60-1.20 [facility] Comment on above: Order Comment: Reaso n for Exam Type 2 diabetes mellitus without complication, without long- Performed By: #### C BC, CMP, LDLD, FE and TIBC, LIPID, URMA #### [address] Erythrocyte distribution wid th [Ratio] by Automated countOrdered By: Ajit Pettit on 05-16-2024 Erythrocyte distribution width (RBC) [Ratio] 13.3 % Normal 11.9-15.[address] [facility] Comment on above: Order Comment: Reaso n for Exam Type 2 diabetes mellitus without complication, without long- Performed By: #### C BC, CMP, LDLD, FE and TIBC, LIPID, URMA #### [address] Erythrocytes [#/volume] in B lood by Automated countOrdered By: Ajit Pettit on 05-16-2024 RBC (Bld) [#/Vol] 4.64 10*6/uL Normal 3.60-5.00 [facility] Comment on above: Order Comment: Reaso n for Exam Type 2 diabetes mellitus without complication, without long- Performed By: #### C BC, CMP, LDLD, FE and TIBC, LIPID, URMA #### [facility] [address] Glucose [Mass/volume] in Ser um or PlasmaOrdered By: Ajit Pettit on 05-16-2024 Glucose [Mass/Vol] 74 mg/dL Normal 70-100 [facility] Comment on above: ADA recommended refe rence rangeRandom Glucose Reference Range is dependent on time and content of last meal. Glucose of more than 200 mg/dL in a nonstressed, ambulatory subject supports the diagnosis of Diabetes Mellitus. Order Comment: Reaso n for Exam Type 2 diabetes mellitus without complication, without long- Result Comment: [place] om Glucose Reference Range is dependent on time and content of last meal. Glucose of more than 200 mg/dL in a nonstressed, ambulatory subject supports the diagnosis of Diabetes Mellitus. ADA recommended reference range Performed By: #### C BC, CMP, LDLD, FE and TIBC, LIPID, URMA #### [facility] [address] [place] [phone] [place] Glucose mean value [Mass/vol ume] in Blood Estimated from glycated hemoglobinOrdered By: Ajit Pettit on 05-16-2024 Average glucose Estimated from glycated hemoglobin (Bld) [Mass/Vol] 137 mg/dL [facility] Hematocrit [Volume Fraction] of Blood by Automated countOrdered By: Ajit Pettit on 05-16-2024 Hematocrit (Bld) [Volume fraction] 41.1 % Normal 34.0-46.[address] [facility] Comment on above: Order Comment: Reaso n for Exam Type 2 diabetes mellitus without complication, without long- Performed By: #### C BC, CMP, LDLD, FE and TIBC, LIPID, URMA #### [facility] [address] [place] [phone] [place] Hemoglobin A1c percentageOrd ered By: Ajit Pettit on 05-16-2024 HbA1c (Bld) [Mass fraction] 6.4 % High 4.3-5.[address] [facility] Comment on above: Increased risk for d iabetes: 5.7 - 6.4diabetes: >6.4glycemic control for adults with diabetes: <7.0 Order Comment: Reaso n for Exam Type 2 diabetes mellitus without complication, without long- Result Comment: Incr eased risk for diabetes: 5.7 - 6.4 diabetes: >6.4 glycemic control for adults with diabetes: <7.0 Performed By: #### C BC, CMP, LDLD, FE and TIBC, LIPID, URMA #### [facility] [address] Hemoglobin [Mass/volume] in BloodOrdered By: Ajit Pettit on 05-16-2024 Hemoglobin (Bld) [Mass/Vol] 14.1 g/dL Normal 11.8-15.[address] [facility] Comment on above: Order Comment: Reaso n for Exam Type 2 diabetes mellitus without complication, without long- Performed By: #### C BC, CMP, LDLD, FE and TIBC, LIPID, URMA #### [facility] [address] Leukocytes [#/volume] correc cherie for nucleated erythrocytes in Blood by Automated counOrdered By: Ajit Pettit on 05-16-2024 WBC corrected for nucl RBC Auto (Bld) [#/Vol] 15.0 10*3/uL High 3.8-11.[address] [facility] Leukocytes [#/volume] in Blo od by Automated countOrdered By: Ajit Pettit on 05-16-2024 WBC (Bld) [#/Vol] 15.0 10*3/uL High 3.8-11.6 [facility] Comment on above: Order Comment: Reaso n for Exam Type 2 diabetes mellitus without complication, without long- Performed By: #### C BC, CMP, LDLD, FE and TIBC, LIPID, URMA #### [facility] [address] [place] [address] [place] Lipid Panelon 05-16-2024 LDL Cholesterol,Calculated 130 mg/dL High 0-100 [facility] Comment on above: Order Comment: Reaso n for Exam Type 2 diabetes mellitus without complication, without long- Result Comment: LDL ATP III CLASSIFICATION LDL less than 100 mg/dL Optimal LDL 100-129 mg/dL Near or above optimal LDL 130-159 mg/dL Borderline high LDL 160-189 mg/dL High LDL greater than 189 mg/dL Very high Performed By: #### C BC, CMP, LDLD, FE and TIBC, LIPID, URMA #### [facility] [address] Triglyceride w/Reflex 321 mg/dL High 0-149 [facility] Comment on above: Order Comment: [...] method. Performed By: #### C BC, CMP, LDLD, FE and TIBC, LIPID, URMA #### [facility] [address] [place] [address] [place] VLDL CHOLESTEROL 64 mg/dL Normal [facility] Comment on above: Order Comment: Reaso n for Exam Type 2 diabetes mellitus without complication, without long- Performed By: #### C BC, CMP, LDLD, FE and TIBC, LIPID, URMA #### [facility] [address] [place] [address] [place] Lymphocytes [#/volume] in Bl ood by Automated countOrdered By: Ajit Pettit on 05-16-2024 Lymphocytes (Bld) [#/Vol] 5.0 10*3/uL High 1.00-4.[address] [facility] Comment on above: Order Comment: Reaso n for Exam Type 2 diabetes mellitus without complication, without long- Performed By: #### C BC, CMP, LDLD, FE and TIBC, LIPID, URMA #### [facility] [address] [place] [address] [place] Lymphocytes/100 leukocytes i n Blood by Automated countOrdered By: Ajit Pettit on 05-16-2024 Lymphocytes/100 WBC (Bld) 33.0 % Normal . [facility] Comment on above: Order Comment: Reaso n for Exam Type 2 diabetes mellitus without complication, without long- Performed By: #### C BC, CMP, LDLD, FE and TIBC, LIPID, URMA #### [facility] [address] MCH [Entitic mass] by Automa cherie countOrdered By: Ajit Pettit on 05-16-2024 MCH (RBC) [Entitic mass] 30.3 pg Normal 24.7-34.[address] [facility] Comment on above: Order Comment: Reaso n for Exam Type 2 diabetes mellitus without complication, without long- Performed By: #### C BC, CMP, LDLD, FE and TIBC, LIPID, URMA #### [facility] [address] MCHC Auto (RBC) [Mass/Vol]Or dered By: Ajit Pettit on 05-16-2024 MCHC (RBC) [Mass/Vol] 34.3 g/dL 32.0-35.0 [facility] [place] [facility] MCV [Entitic volume] by Auto mated countOrdered By: Ajit Pettit on 05-16-2024 MCV (RBC) [Entitic vol] 88.4 fL Normal 80-100 [facility] Comment on above: Order Comment: Reaso n for Exam Type 2 diabetes mellitus without complication, without long- Performed By: #### C BC, CMP, LDLD, FE and TIBC, LIPID, URMA #### [facility] [address] [place] [address] [place] Neutrophils [#/volume] in Bl ood by Automated countOrdered By: Ajit Pettit on 05-16-2024 Neutrophils (Bld) [#/Vol] 9.3 10*3/uL High 1.8-7.[address] [facility] Comment on above: Order Comment: Reaso n for Exam Type 2 diabetes mellitus without complication, without long- Performed By: #### C BC, CMP, LDLD, FE and TIBC, LIPID, URMA #### [facility] [address] No Panel InformationOrdered By: Ajit Pettit on 05-16-2024 Estimated GFR (CKD-EPI) > 60.0 mL/Min [facility] Creatinine Clearance (Chem N/A [facility] Nucleated erythrocytes [Pres ence] in Blood by Automated countOrdered By: Ajit Pettit on 05-16-2024 Nucleated RBC Auto Ql (Bld) 0.1 /100{WBC} 0-0.[address] [facility] Platelet mean volume [Entiti c volume] in Blood by Automated countOrdered By: Ajit Pettit on 05-16-2024 Platelet mean volume (Bld) [Entitic vol] 7.9 fL Normal 6.3-10.[address] [facility] Comment on above: Order Comment: Reaso n for Exam Type 2 diabetes mellitus without complication, without long- Performed By: #### C BC, CMP, LDLD, FE and TIBC, LIPID, URMA #### [facility] [address] Platelets [#/volume] in Bloo d by Automated countOrdered By: Ajit Pettit on 05-16-2024 Platelets (Bld) [#/Vol] 400 10*3/uL Normal 150-[address] [facility] Comment on above: Order Comment: Reaso n for Exam Type 2 diabetes mellitus without complication, without long- Performed By: #### C BC, CMP, LDLD, FE and TIBC, LIPID, URMA #### [facility] [address] [place] [address] [place] Potassium [Moles/volume] in Serum or PlasmaOrdered By: Ajit Pettit on 05-16-2024 Potassium [Moles/Vol] 4.1 mmol/L Normal 3.5-5.1 [facility] Comment on above: Order Comment: Reaso n for Exam Type 2 diabetes mellitus without complication, without long- Performed By: #### C BC, CMP, LDLD, FE and TIBC, LIPID, URMA #### [facility] [address] [place] [address] [place] Protein [Mass/volume] in Ser um or PlasmaOrdered By: Ajit Pettit on 05-16-2024 Protein [Mass/Vol] 6.7 g/dL Normal 6.4-8.9 [facility] Comment on above: Order Comment: Reaso n for Exam Type 2 diabetes mellitus without complication, without long- Performed By: #### C BC, CMP, LDLD, FE and TIBC, LIPID, URMA #### [facility] [address] Serum globulin measurement b y calculation (mass/volume)Ordered By: Ajit Pettit on 05-16-2024 Globulin (S) [Mass/Vol] 2.5 g/dL Normal [facility] Comment on above: Order Comment: Reaso n for Exam Type 2 diabetes mellitus without complication, without long- Performed By: #### C BC, CMP, LDLD, FE and TIBC, LIPID, URMA #### [facility] [address] Serum or plasma albumin/glob ulin mass ratioOrdered By: Ajit Pettit on 05-16-2024 Albumin/Globulin [Mass ratio] 1.7 {ratio} Normal [facility] Comment on above: Order Comment: Reaso n for Exam Type 2 diabetes mellitus without complication, without long- Performed By: #### C BC, CMP, LDLD, FE and TIBC, LIPID, URMA #### [facility] [address] Serum or plasma anion gap de terminationOrdered By: Ajit Pettit on 05-16-2024 Anion gap [Moles/Vol] 13.1 mmol/L Normal 6.0-15.0 [facility] Comment on above: Order Comment: Reaso n for Exam Type 2 diabetes mellitus without complication, without long- Performed By: #### C BC, CMP, LDLD, FE and TIBC, LIPID, URMA #### [facility] [address] Serum or plasma high density lipoprotein (HDL) cholesterol measurementOrdered By: Ajit Pettit on 05-16-2024 Cholesterol in HDL [Mass/Vol] 43 mg/dL Normal 23-[address] [facility] Comment on above: HDL CHOL [...] HIGH Performed By: #### C BC, CMP, LDLD, FE and TIBC, LIPID, URMA #### [facility] [address] Serum or plasma total choles terol/high density lipoprotein (HDL) cholesterol mass ratOrdered By: Ajit Pettit on 05-16-2024 Cholesterol.total/Suellen sterol in HDL [Mass ratio] 5.5 {ratio} Normal <5.[address] [facility] Comment on above: Order Comment: Reaso n for Exam Type 2 diabetes mellitus without complication, without long- Performed By: #### C BC, CMP, LDLD, FE and TIBC, LIPID, URMA #### [facility] [address] [place] [address] [place] Sodium [Moles/volume] in Ser um or PlasmaOrdered By: Ajit Pettit on 05-16-2024 Sodium [Moles/Vol] 131 mmol/L Low 136-145 [facility] Comment on above: Order Comment: Reaso n for Exam Type 2 diabetes mellitus without complication, without long- Performed By: #### C BC, CMP, LDLD, FE and TIBC, LIPID, URMA #### [facility] [address] Thyroid Stim Hormone w/Rflxo n 05-16-2024 Thyroid Stim Hormone w/Rflx 1.69 u[iU]/mL Normal 0.45-5.33 [facility] Comment on above: Order Comment: Reaso n for Exam Type 2 diabetes mellitus without complication, without long- Performed By: #### C BC, CMP, LDLD, FE and TIBC, LIPID, URMA #### [facility] [address] [place] [address] [place] Thyrotropin [Units/volume] i n Serum or PlasmaOrdered By: Ajit Pettit on 05-16-2024 TSH Qn 1.69 m[IU]/L 0.45-5.[address] [facility] Triglyceride [Mass/volume] i n Serum or PlasmaOrdered By: Ajit Pettit on 05-16-2024 Triglyceride [Mass/Vol] 321 mg/dL High 0-149 [facility] Comment on above: TRIG ATP III CLASSIF ICATIONTRIG less than 150 mg/dL NormalTRIG 150-199 mg/dL Borderline highTRIG 200-500 mg/dL High TRIG greater than 500 mg/dL Very highStandard traceable to the Center for Disease Conrtrol and Prevention (CDC) test method. Urea nitrogen [Mass/volume] in Serum or PlasmaOrdered By: Ajit Pettit on 05-16-2024 Urea nitrogen [Mass/Vol] 5 mg/dL Low 7-[address] [facility] Comment on above: Order Comment: Reaso n for Exam Type 2 diabetes mellitus without complication, without long- Performed By: #### C BC, CMP, LDLD, FE and TIBC, LIPID, URMA #### [facility] [address] [place] [address] [facility] Vitamin D 25 Hydroxy Totalon 05-16-2024 Vitamin D 25 Hydroxy Total 46.2 ng/mL Normal 30-100 [facility] Comment on above: Order Comment: Reaso n for Exam Type 2 diabetes mellitus without complication, without long- Result Comment: MICHAEL MIN D STATUS 25(OH)VITAMIN D RANGE (ng/mL) Deficient <20 Insufficient 20 to <30 Sufficient 30 to 100 Reference: Jovanni MF,Dominique NC, Gillian NINA, et al. Evaluation,treatment, and prevention of vitamin D deficiency; an Endocrine Society clinical practice guideline. JCEM. 2010; 96(7):1911-30. PERFORMED BY: [facility] [address] [place] [address] PATHOLOGIST FLOOR CLEANER RIDGE HUERTA M.D. Performed By: #### C BC, CMP, LDLD, FE and TIBC, LIPID, URMA #### [facility] [address] [place] [address] [facility] Vitamin D+Metabolites [Mass/ volume] in Serum or PlasmaOrdered By: Ajit Pettit on 05-16-2024 Vitamin D+Metabolites [Mass/Vol] 46.2 ng/mL 30-[address] [facility] Comment on above: VITAMIN D STATUS 25( [place])VITAMIN D RANGE (ng/mL) Deficient <20 Insufficient 20 to <30Sufficient 30 to 100Reference: Jovanni MF,Dominique NC, Gillian NINA, et al. Evaluation,treatment, and prevention of vitamin D deficiency; an Endocrine Society clinical practice guideline. JCEM. 2010; 96(7):1911-30. Capillary blood glucose ashwini urement by glucometer (mass/volume)Ordered By: Abi Sunshine on 03-16-2024 Glucose [Mass/Vol] 140 mg/dL Normal [facility] Comment on above: Random Glucose Refer ence Range is dependent on time and content of last meal. Glucose of more than 200 mg/dL in a nonstressed, ambulatory subject supports the diagnosis of Diabetes Mellitus. Result Comment: [place] om Glucose Reference Range is dependent on time and content of last meal. Glucose of more than 200 mg/dL in a nonstressed, ambulatory subject supports the diagnosis of Diabetes Mellitus. PERFORMED BY: [address] [address] PATHOLOGIST FLOOR CLEANER RIDGE HUERTA M.D. Performed By: #### G EDUARDO ####Point of Care testing, [facility] 03-16-2024 Specimen: [id number] Received: 03/16/24 Status: BLUE Neal Num: [id number] Spec Type: Surgical Subm Dr: Abi Sunshine DO Tissues: A Colon Biopsy (RT RANDOM COLON BX) B Colon Biopsy (RANDOM LT) C Colon Biopsy (TRANSV POLYPS) D Colon Biopsy (RECTAL POLYP) Procedures: HE/8, Gross/Micro L4/4 Age/ Patient Sex Location Account Attending Physician Rachel Mcgarry 44/F [id number] Abi Sunshine DO SPEC NUM: [id number] RECD: 03/16/24 STATUS: BLUE NEAL NUM: [id number] JOSEPH: 03/16/24- SUBM DR: Abi Sunshine DO ENTERED: 03/16/24-1005 [facility] DR: SPEC TYPE: Surgical DEPT: S ORDERED: GAVINDagoberto, Gross/Micro L4/4 ORDERED: , Gross/Micro L4/4 Pathological Diagnosis A, right colon [...] -Serrated hyperplastic polyp in both fragments Specimen: [id number] Received: 03/16/24 Status: BLUE Neal Num: [id number] Spec Type: Surgical Subm Dr: Abi Sunshine DO Tissues: A Colon Biopsy (RT RANDOM COLON BX) B Colon Biopsy (RANDOM LT) C Colon Biopsy (TRANSV POLYPS) D Colon Biopsy (RECTAL POLYP) Procedures: Vik BETANCOURT/Micro L4/4 Patient: Rachel Mcgarry [id number] (Continued) Specimen: [id number] Received: 03/16/24 (Continued) Signed (signature on file) Philomena Grimm MD 03/18/24 1111 Specimen: Received: 03/16/24 Status: BOAmeya Val Num: [id number] Spec Type: Surgical Subm Dr: Abi Sunshine DO Tissues: A Colon Biopsy (RT RANDOM COLON BX) B Colon Biopsy (RANDOM LT) C Colon Biopsy (TRANSV POLYPS) D Colon Biopsy (RECTAL POLYP) Procedures: Vik BETANCOURT/Claude L4/4 Patient: Rachel Mcgarry [id number] (Continued) Specimen: [id number] Received: 03/16/24-100 (Continued) Clinical Information Screening, diarrhea. Rule out [...] cm, entirely submitted in D1. CPT Codes 09231Y2 Specimen: [id number] Received: 03/16/24 Status: BOAmeya Neal Num: [id number] Spec Type: Surgical Subm Dr: Abi Sunshine DO Tissues: A Colon Biopsy (RT RANDOM COLON BX) B Colon Biopsy (RANDOM LT) C Colon Biopsy (TRANSV POLYPS) D Colon Biopsy (RECTAL POLYP) Procedures: GAVIN/Dagoberto, Gross/Micro L4/4 Patient: Rachel Mcgarry [id number] (Continued) Signed (signature on file) Chin-Moses Grimm MD 03/18/24 1111 Normal [facility] XR lumbar spine AP/LAT/FLX/E XTon 03-02-2024 XR lumbar spine AP/LAT/FLX/[place] [address] XRay Report Signed Patient: Rachel Mcgarry MR#: [id number] 1 : 1980 Acct:[id number] Age/Sex: 44 / F ADM Date: 03/02/24 Loc: XD Room: Type: [facility] Attending Dr: Kyler Miramontes MD Copies [...] Yeboah Jr., D.O.03/02/2024 2:52 PM Dictation Location: [place] [address] Transcribed By: [facility] 03/02/24 1452 Dictated By: Andrés Yeboah Jr, DO 03/02/24 1444 Signed By: 03/02/24 1452 Normal [facility] US breast RT limitedon 02-08 US breast RT limited [facility] [place] [address] Ultrasound Report Signed Patient: Rachel Mcgarry MR#: [id number] 1 : 1980 Acct:[id number] Age/Sex: 44 / F ADM Date: 02/09/24 Loc: [facility] Room: Type: [facility] Attending Dr: Ajit DEJESUS Ordering Provider: OLEG [...] Dar Messina M.D.02/09/2024 9:33 AM Dictation Location: [facility] Tech: Janet Krause Transcribed By: ROSA MARIA 02/09/2433 Dictated By: Dar Messina II, MD 02/09/24928 Signed By: 02/09/24932 Normal [facility] MM screening mammo BI w/CADo n 02-04-2024 MM screening mammo BI w/CAD [facility] [place] [address] [place] [address] Mammography Report Signed Patient: Rachel Mcgarry MR#: [id number] 1 : 1980 Acct:[id number] Age/Sex: 44 / F ADM Date: 02/04/24 Loc: [place] Room: Type: [facility] Attending Dr: Ajit DEJESUS Copies to: OLEG [...] Eda Yañez M.D.02/04/2024 2:28 PM Dictation Location: [facility] Transcribed By: ROSA MARIA 02/04/24 1428 Dictated By: Eda Yañez MD 02/04/24 1418 Signed By: 02/04/24 142 Normal [facility] US renal BIon 01-21-2024 US renal BI [facility] [place] [address] Ultrasound Report Signed Patient: Rachel Mcgarry MR#: [id number] 1 : 1980 Acct:[id number] Age/Sex: 44 / F ADM Date: 01/21/24 Loc: Room: Type: [facility] Attending Dr: Ajit DEJESUS Ordering Provider: OLEG [...] findings. Impression dictated by: Andrés Yeboah Jr., D.OPanchito01/21/2024 2:50 PM Dictation Location: [place] [address] Tech: Mariza Garnett Transcribed By: ROSA MARIA 01/21/24 145 Dictated By: Andrés Yeboah Jr, DO 01/21/24 145 Signed By: 01/21/24 145 Normal [facility] Alanine aminotransferase [En zymatic activity/volume] in Serum or PlasmaOrdered By: Ajit Pettit on 01-18-2024 ALT [Catalytic activity/Vol] 8 U/L Normal 7-[address] [facility] Comment on above: Order Comment: Reaso n for Exam Type 2 diabetes mellitus without complication, without long- Performed By: #### C BC, CMP, LDLD, FE and TIBC, LIPID, URMA #### [facility] [address] [place] [address] [place] Albumin [Mass/volume] in Ser um or Plasma by Bromocresol green (BCG) dye binding methoOrdered By: Ajit Pettit on 01-18-2024 Albumin BCG dye [Mass/Vol] 4.1 g/dL 3.5-5.[address] [facility] Alkaline phosphatase [Enzyma tic activity/volume] in Serum or PlasmaOrdered By: Ajit Pettit on 01-18-2024 ALP [Catalytic activity/Vol] 58 U/L Normal 34-[address] [facility] Comment on above: Order Comment: Reaso n for Exam Type 2 diabetes mellitus without complication, without long- Performed By: #### C BC, CMP, LDLD, FE and TIBC, LIPID, URMA #### [facility] [address] [place] [address] Aspartate aminotransferase [ Enzymatic activity/volume] in Serum or PlasmaOrdered By: Ajit Pettit on 01-18-2024 AST [Catalytic activity/Vol] 9 U/L Low 13-[address] [facility] Comment on above: Order Comment: Reaso n for Exam Type 2 diabetes mellitus without complication, without long- Performed By: #### C BC, CMP, LDLD, FE and TIBC, LIPID, URMA #### [facility] [address] [place] [address] Automated basophil %Ordered By: Ajit Pettit on 01-18-2024 Basophils/100 WBC (Bld) 1.2 % Normal . [facility] Comment on above: Order Comment: Reaso n for Exam Type 2 diabetes mellitus without complication, without long- Performed By: #### C BC, CMP, LDLD, FE and TIBC, LIPID, URMA #### [place] [address] [place] Automated basophil countOrde red By: Ajit Pettit on 01-18-2024 Basophils (Bld) [#/Vol] 0.2 10*3/uL Normal 0.0-0.[address] [facility] Comment on above: Order Comment: Reaso n for Exam Type 2 diabetes mellitus without complication, without long- Result Comment: PERF ORMED BY: [place] [address] PATHOLOGIST FLOOR CLEANER RIDGE HUERTA M.D. Performed By: #### C BC, CMP, LDLD, FE and TIBC, LIPID, URMA #### [facility] [address] [place] [address] Automated blood monocyte cou ntOrdered By: Ajit Harrietsic on 01-18-2024 Monocytes (Bld) [#/Vol] 0.9 10*3/uL High 0.0-0.[address] [facility] Comment on above: Order Comment: Reaso n for Exam Type 2 diabetes mellitus without complication, without long- Performed By: #### C BC, CMP, LDLD, FE and TIBC, LIPID, URMA #### [facility] [address] [place] [address] Automated eosinophil %Ordere d By: Ajit Sparyanc on 01-18-2024 Eosinophils/100 WBC (Bld) 0.9 % Normal . [facility] Comment on above: Order Comment: Reaso n for Exam Type 2 diabetes mellitus without complication, without long- Performed By: #### C BC, CMP, LDLD, FE and TIBC, LIPID, URMA #### [facility] [address] [place] [address] Automated eosinophil countOr dered By: Ajit Spasic on 01-18-2024 Eosinophils (Bld) [#/Vol] 0.1 10*3/uL Normal 0.0-0.[address] [facility] Comment on above: Order Comment: Reaso n for Exam Type 2 diabetes mellitus without complication, without long- Performed By: #### C BC, CMP, LDLD, FE and TIBC, LIPID, URMA #### [facility] [address] [place] [address] [place] Automated monocyte %Ordered By: Ajit Spasic on 01-18-2024 Monocytes/100 WBC (Bld) 7.1 % Normal . [facility] Comment on above: Order Comment: Reaso n for Exam Type 2 diabetes mellitus without complication, without long- Performed By: #### C BC, CMP, LDLD, FE and TIBC, LIPID, URMA #### [facility] [address] [place] [address] [place] Automated neutrophil %Ordere d By: Ajit Pettit on 01-18-2024 Neutrophils/100 WBC (Bld) 60.9 % Normal . [facility] Comment on above: Order Comment: Reaso n for Exam Type 2 diabetes mellitus without complication, without long- Performed By: #### C BC, CMP, LDLD, FE and TIBC, LIPID, URMA #### [facility] [address] Bilirubin.total [Mass/volume ] in Serum or PlasmaOrdered By: Ajit Millanc on 01-18-2024 Bilirubin [Mass/Vol] 0.4 mg/dL Normal 0.3-1.0 [facility] Comment on above: Order Comment: Reaso n for Exam Type 2 diabetes mellitus without complication, without long- Performed By: #### C BC, CMP, LDLD, FE and TIBC, LIPID, URMA #### [facility] [address] Calcium [Mass/volume] in Ser um or PlasmaOrdered By: Ajit Millanc on 01-18-2024 Calcium [Mass/Vol] 9.5 mg/dL Normal 8.6-10.3 [facility] Comment on above: Order Comment: Reaso n for Exam Type 2 diabetes mellitus without complication, without long- Performed By: #### C BC, CMP, LDLD, FE and TIBC, LIPID, URMA #### [facility] [address] [place] [address] [place] Carbon dioxide, total [Moles /volume] in Serum or PlasmaOrdered By: Ajit Harrietsic on 01-18-2024 CO2 [Moles/Vol] 22.0 mmol/L Normal 21.0-31.0 [facility] Comment on above: Order Comment: Reaso n for Exam Type 2 diabetes mellitus without complication, without long- Performed By: #### C BC, CMP, LDLD, FE and TIBC, LIPID, URMA #### [facility] [address] [place] [address] [place] Chloride [Moles/volume] in S alissa or PlasmaOrdered By: Ajit Pettit on 01-18-2024 Chloride [Moles/Vol] 103 mmol/L Normal 98-107 [facility] Comment on above: Order Comment: Reaso n for Exam Type 2 diabetes mellitus without complication, without long- Performed By: #### C BC, CMP, LDLD, FE and TIBC, LIPID, URMA #### [facility] [address] [place] [id number] [place] Cholesterol [Mass/volume] in Serum or PlasmaOrdered By: Ajit Pettit on 01-18-2024 Cholesterol [Mass/Vol] 188 mg/dL Normal 140-200 [facility] Comment on above: Chol less than 200 m g/dl low riskChol 201-239 mg/dl borderline riskChol 240 mg/dl and greater high risk Order Comment: Reaso n for Exam Type 2 diabetes mellitus without complication, without long- Result Comment: Chol less than 200 mg/dl low risk Chol 201-239 mg/dl borderline risk Chol 240 mg/dl and greater high risk Performed By: #### C BC, CMP, LDLD, FE and TIBC, LIPID, URMA #### [facility] [address] [id number] [place] Cholesterol in LDL Calc [Mas s/Vol]Ordered By: Ajit Pettit on 01-18-2024 Cholesterol in LDL [Mass/Vol] TNP [facility] Comment on above: Test not performed Cholesterol in LDL [Mass/vol ume] in Serum or PlasmaOrdered By: Ajit Pettit on 01-18-2024 Cholesterol in LDL [Mass/Vol] 97 mg/dL 0-[address] [facility] Comment on above: LDL ATP III CLASSIFI CATIONLDL less than 100 mg/dL OptimalLDL 100-129 mg/dL Near or above optimalLDL 130-159 mg/dL Borderline highLDL 160-189 mg/dL HighLDL greater than 189 mg/dL Very high Cholesterol in VLDL Calc [Ma ss/Vol]Ordered By: Ajit Pettit on 01-18-2024 Cholesterol in VLDL [Mass/Vol] 88 mg/dL [facility] Complete Blood Count Auto Di ffon 01-18-2024 Mean Corpuscular HGB Conc 33.1 g/dL Normal 32.0-35.0 [facility] Comment on above: Order Comment: Reaso n for Exam Type 2 diabetes mellitus without complication, without long- Performed By: #### C BC, CMP, LDLD, FE and TIBC, LIPID, URMA #### [facility] [address] NRBC% 0.2 /100{WBC} Normal 0-0.5 [facility] Comment on above: Order Comment: Reaso n for Exam Type 2 diabetes mellitus without complication, without long- Performed By: #### C BC, CMP, LDLD, FE and TIBC, LIPID, URMA #### [address] Comprehensive Metabolic Pane mark 01-18-2024 Albumin [Mass/Vol] 4.1 g/dL Normal 3.5-5.7 [facility] Comment on above: Order Comment: Reaso n for Exam Type 2 diabetes mellitus without complication, without long- Performed By: #### C BC, CMP, LDLD, FE and TIBC, LIPID, URMA #### [address] GFR/1.73 sq M.predicted MDRD (S/P/Bld) [Vol rate/Area] mL/min/{1.73_m2} Normal [facility] Comment on above: Order Comment: Reaso n for Exam Type 2 diabetes mellitus without complication, without long- Performed By: #### C BC, CMP, LDLD, FE and TIBC, LIPID, URMA #### [facility] [address] [place] [address] Creatinine [Mass/volume] in Serum or PlasmaOrdered By: Ajit Pettit on 01-18-2024 Creatinine [Mass/Vol] 0.42 mg/dL Low 0.60-1.20 [facility] Comment on above: Order Comment: Reaso n for Exam Type 2 diabetes mellitus without complication, without long- Performed By: #### C BC, CMP, LDLD, FE and TIBC, LIPID, URMA #### [facility] [address] [place] [address] [place] Erythrocyte distribution wid th [Ratio] by Automated countOrdered By: Ajit Pettit on 01-18-2024 Erythrocyte distribution width (RBC) [Ratio] 13.4 % Normal 11.9-15.[address] [facility] Comment on above: Order Comment: Reaso n for Exam Type 2 diabetes mellitus without complication, without long- Performed By: #### C BC, CMP, LDLD, FE and TIBC, LIPID, URMA #### [facility] [address] Erythrocytes [#/volume] in B lood by Automated countOrdered By: Ajit Pettit on 01-18-2024 RBC (Bld) [#/Vol] 4.67 10*6/uL Normal 3.60-5.00 [facility] Comment on above: Order Comment: Reaso n for Exam Type 2 diabetes mellitus without complication, without long- Performed By: #### C BC, CMP, LDLD, FE and TIBC, LIPID, URMA #### [facility] [address] Glucose [Mass/volume] in Ser um or PlasmaOrdered By: Ajit Pettit on 01-18-2024 Glucose [Mass/Vol] 107 mg/dL High 70-100 [facility] Comment on above: ADA recommended refe rence rangeRandom Glucose Reference Range is dependent on time and content of last meal. Glucose of more than 200 mg/dL in a nonstressed, ambulatory subject supports the diagnosis of Diabetes Mellitus. Order Comment: Reaso n for Exam Type 2 diabetes mellitus without complication, without long- Result Comment: [place] Glucose Reference Range is dependent on time and content of last meal. Glucose of more than 200 mg/dL in a nonstressed, ambulatory subject supports the diagnosis of Diabetes Mellitus. ADA recommended reference range Performed By: #### C BC, CMP, LDLD, FE and TIBC, LIPID, URMA #### [facility] [address] [place] [address] [place] Hematocrit [Volume Fraction] of Blood by Automated countOrdered By: Ajit Pettit on 01-18-2024 Hematocrit (Bld) [Volume fraction] 40.8 % Normal 34.0-46.[address] [facility] Comment on above: Order Comment: Reaso n for Exam Type 2 diabetes mellitus without complication, without long- Performed By: #### C BC, CMP, LDLD, FE and TIBC, LIPID, URMA #### [facility] [address] Hemoglobin [Mass/volume] in BloodOrdered By: Ajit Pettit on 01-18-2024 Hemoglobin (Bld) [Mass/Vol] 13.5 g/dL Normal 11.8-15.[address] [facility] Comment on above: Order Comment: Reaso n for Exam Type 2 diabetes mellitus without complication, without long- Performed By: #### C BC, CMP, LDLD, FE and TIBC, LIPID, URMA #### [facility] [address] Iron [Mass/volume] in Serum or PlasmaOrdered By: Ajit Pettit on 01-18-2024 Iron [Mass/Vol] 89 ug/dL Normal 50-[address] [facility] Comment on above: Order Comment: Reaso n for Exam Type 2 diabetes mellitus without complication, without long- Performed By: #### C BC, CMP, LDLD, FE and TIBC, LIPID, URMA #### [facility] [address] [place] [address] Iron and TIBC Profileon 01-02 % Iron Saturation 23.8 % Normal 20-50 [facility] Comment on above: Order Comment: Reaso n for Exam Type 2 diabetes mellitus without complication, without long- Performed By: #### C BC, CMP, LDLD, FE and TIBC, LIPID, URMA #### [facility] [address] Total Iron Binding Capacity 374 ug/dL Normal 255-450 [facility] Comment on above: Order Comment: Reaso n for Exam Type 2 diabetes mellitus without complication, without long- Performed By: #### C BC, CMP, LDLD, FE and TIBC, LIPID, URMA #### [facility] [address] Iron binding capacity [Mass/ volume] in Serum or PlasmaOrdered By: Ajit Millanc on 01-18-2024 Iron binding capacity [Mass/Vol] 374 ug/dL 255-[address] [facility] Iron saturation [Mass Fracti on] in Serum or PlasmaOrdered By: Ajit Millanc on 01-18-2024 Iron saturation [Mass fraction] 23.8 % 20-[address] [facility] LDL Cholesterol Measuredon 0 01-18-2024 LDL Cholesterol Measured 97 mg/dL Normal 0-100 [facility] Comment on above: Order Comment: Reaso n for Exam Type 2 diabetes mellitus without complication, without long- Result Comment: LDL ATP III CLASSIFICATION LDL less than 100 mg/dL Optimal LDL 100-129 mg/dL Near or above optimal LDL 130-159 mg/dL Borderline high LDL 160-189 mg/dL High LDL greater than 189 mg/dL Very high PERFORMED BY: [place] [address] PATHOLOGIST FLOOR CLEANER RIDGE HUERTA M.D. Performed By: #### C BC, CMP, LDLD, FE and TIBC, LIPID, URMA #### [facility] [address] [place] [address] Leukocytes [#/volume] correc cherie for nucleated erythrocytes in Blood by Automated counOrdered By: Ajit Pettit on 01-18-2024 WBC corrected for nucl RBC Auto (Bld) [#/Vol] 12.4 10*3/uL High 3.8-11.[address] [facility] Leukocytes [#/volume] in Blo od by Automated countOrdered By: Ajit Millanc on 01-18-2024 WBC (Bld) [#/Vol] 12.4 10*3/uL High 3.8-11.6 [facility] Comment on above: Order Comment: Reaso n for Exam Type 2 diabetes mellitus without complication, without long- Performed By: #### C BC, CMP, LDLD, FE and TIBC, LIPID, URMA #### [facility] [address] Lipid Panelon 01-18-2024 LDL Cholesterol,Calculated Not performed Normal 0-100 [facility] Comment on above: Order Comment: Reaso n for Exam Type 2 diabetes mellitus without complication, without long- Performed By: #### C BC, CMP, LDLD, FE and TIBC, LIPID, URMA #### [facility] [address] Triglyceride w/Reflex 441 mg/dL High 0-149 [facility] Comment on above: Order Comment: [...] resulted. Performed By: #### C BC, CMP, LDLD, FE and TIBC, LIPID, URMA #### [facility] [address] VLDL CHOLESTEROL 88 mg/dL Normal [facility] Comment on above: Order Comment: Reaso n for Exam Type 2 diabetes mellitus without complication, without long- Performed By: #### C BC, CMP, LDLD, FE and TIBC, LIPID, URMA #### [place] [address] [place] Lymphocytes [#/volume] in Bl ood by Automated countOrdered By: Ajit Pettit on 01-18-2024 Lymphocytes (Bld) [#/Vol] 3.7 10*3/uL Normal 1.00-4.[address] [facility] Comment on above: Order Comment: Reaso n for Exam Type 2 diabetes mellitus without complication, without long- Performed By: #### C BC, CMP, LDLD, FE and TIBC, LIPID, URMA #### [facility] [address] [place] [address] [place] Lymphocytes/100 leukocytes i n Blood by Automated countOrdered By: Ajit Pettit on 01-18-2024 Lymphocytes/100 WBC (Bld) 29.9 % Normal . [facility] Comment on above: Order Comment: Reaso n for Exam Type 2 diabetes mellitus without complication, without long- Performed By: #### C BC, CMP, LDLD, FE and TIBC, LIPID, URMA #### [facility] [address] MCH [Entitic mass] by Automa cherie countOrdered By: Ajit Pettit on 01-18-2024 MCH (RBC) [Entitic mass] 28.9 pg Normal 24.7-34.[address] [facility] Comment on above: Order Comment: Reaso n for Exam Type 2 diabetes mellitus without complication, without long- Performed By: #### C BC, CMP, LDLD, FE and TIBC, LIPID, URMA #### [address] MCHC Auto (RBC) [Mass/Vol]Or dered By: Ajit Pettit on 01-18-2024 MCHC (RBC) [Mass/Vol] 33.1 g/dL 32.0-35.0 [facility] MCV [Entitic volume] by Auto mated countOrdered By: Ajit Pettit on 01-18-2024 MCV (RBC) [Entitic vol] 87.3 fL Normal 80-100 [facility] Comment on above: Order Comment: Reaso n for Exam Type 2 diabetes mellitus without complication, without long- Performed By: #### C BC, CMP, LDLD, FE and TIBC, LIPID, URMA #### [facility] [address] Microalbumin [Mass/volume] i n UrineOrdered By: Ajit Pettit on 01-18-2024 Albumin DL <= 20 mg/L (U) [Mass/Vol] 0.8 mg/dL Normal 0.0-1.[address] [facility] Comment on above: Order Comment: Reaso n for Exam Type 2 diabetes mellitus without complication, without long- Result Comment: PERF ORMED BY: [address] [place] [address] PATHOLOGIST FLO[employer] CLEANER RIDGE HUERTA M.D. Performed By: #### C BC, CMP, LDLD, FE and TIBC, LIPID, URMA #### [facility] [address] [place] [address] [place] Neutrophils [#/volume] in Bl ood by Automated countOrdered By: Ajit Pettit on 01-18-2024 Neutrophils (Bld) [#/Vol] 7.6 10*3/uL Normal 1.8-7.[address] [facility] Comment on above: Order Comment: Reaso n for Exam Type 2 diabetes mellitus without complication, without long- Performed By: #### C BC, CMP, LDLD, FE and TIBC, LIPID, URMA #### [facility] [address] No Panel InformationOrdered By: Ajit Pettit on 01-18-2024 Estimated GFR (CKD-EPI) > 60.0 mL/Min [facility] Creatinine Clearance (Chem N/A [facility] Nucleated erythrocytes [Pres ence] in Blood by Automated countOrdered By: Ajit Pettit on 01-18-2024 Nucleated RBC Auto Ql (Bld) 0.2 /100{WBC} 0-0.[address] [facility] Platelet mean volume [Entiti c volume] in Blood by Automated countOrdered By: Ajit Pettit on 01-18-2024 Platelet mean volume (Bld) [Entitic vol] 8.8 fL Normal 6.3-10.[address] [facility] Comment on above: Order Comment: Reaso n for Exam Type 2 diabetes mellitus without complication, without long- Performed By: #### C BC, CMP, LDLD, FE and TIBC, LIPID, URMA #### [facility] [address] [place] [address] [place] Platelets [#/volume] in Bloo d by Automated countOrdered By: Ajit Pettit on 01-18-2024 Platelets (Bld) [#/Vol] 275 10*3/uL Normal 150-[address] [facility] Comment on above: Order Comment: Reaso n for Exam Type 2 diabetes mellitus without complication, without long- Performed By: #### C BC, CMP, LDLD, FE and TIBC, LIPID, URMA #### [facility] [address] [place] [address] [place] Potassium [Moles/volume] in Serum or PlasmaOrdered By: Ajit Pettit on 01-18-2024 Potassium [Moles/Vol] 4.3 mmol/L Normal 3.5-5.1 [facility] Comment on above: Order Comment: Reaso n for Exam Type 2 diabetes mellitus without complication, without long- Performed By: #### C BC, CMP, LDLD, FE and TIBC, LIPID, URMA #### [facility] [address] [place] [address] [place] Protein [Mass/volume] in Ser um or PlasmaOrdered By: Ajit Pettit on 01-18-2024 Protein [Mass/Vol] 6.6 g/dL Normal 6.4-8.9 [facility] Comment on above: Order Comment: Reaso n for Exam Type 2 diabetes mellitus without complication, without long- Performed By: #### C BC, CMP, LDLD, FE and TIBC, LIPID, URMA #### [facility] [address] Serum globulin measurement b y calculation (mass/volume)Ordered By: Ajit Pettit on 01-18-2024 Globulin (S) [Mass/Vol] 2.5 g/dL Normal [facility] Comment on above: Order Comment: Reaso n for Exam Type 2 diabetes mellitus without complication, without long- Performed By: #### C BC, CMP, LDLD, FE and TIBC, LIPID, URMA #### [facility] [address] [id number] [place] Serum or plasma albumin/glob ulin mass ratioOrdered By: Ajit Pettit on 01-18-2024 Albumin/Globulin [Mass ratio] 1.6 {ratio} Normal [facility] Comment on above: Order Comment: Reaso n for Exam Type 2 diabetes mellitus without complication, without long- Performed By: #### C BC, CMP, LDLD, FE and TIBC, LIPID, URMA #### [facility] [address] [id number] [place] Serum or plasma anion gap de terminationOrdered By: Ajit Pettit on 01-18-2024 Anion gap [Moles/Vol] 15.3 mmol/L High 6.0-15.0 [facility] Comment on above: Order Comment: Reaso n for Exam Type 2 diabetes mellitus without complication, without long- Performed By: #### C BC, CMP, LDLD, FE and TIBC, LIPID, URMA #### [facility] [address] Serum or plasma high density lipoprotein (HDL) cholesterol measurementOrdered By: Ajit Pettit on 01-18-2024 Cholesterol in HDL [Mass/Vol] 37 mg/dL Normal 23-[address] [facility] Comment on above: HDL CHOL [...] HIGH Performed By: #### C BC, CMP, LDLD, FE and TIBC, LIPID, URMA #### [facility] [address] Serum or plasma total choles terol/high density lipoprotein (HDL) cholesterol mass ratOrdered By: Ajit Pettit on 01-18-2024 Cholesterol.total/Suellen sterol in HDL [Mass ratio] 5.1 {ratio} Normal <5.[address] [facility] Comment on above: Order Comment: Reaso n for Exam Type 2 diabetes mellitus without complication, without long- Performed By: #### C BC, CMP, LDLD, FE and TIBC, LIPID, URMA #### [facility] [address] Result Comment: PERF ORMED BY: [place] [address] PATHOLOGIST FLOOR CLEANER RIDGE HUERTA M.D. Sodium [Moles/volume] in Ser um or PlasmaOrdered By: Ajit Pettit on 01-18-2024 Sodium [Moles/Vol] 136 mmol/L Normal 136-145 [facility] Comment on above: Order Comment: Reaso n for Exam Type 2 diabetes mellitus without complication, without long- Performed By: #### C BC, CMP, LDLD, FE and TIBC, LIPID, URMA #### [facility] [address] Transferrin [Mass/volume] in Serum or PlasmaOrdered By: Ajit Pettit on 01-18-2024 Transferrin [Mass/Vol] 267 mg/dL Normal 203-362 [facility] Comment on above: Order Comment: Reaso n for Exam Type 2 diabetes mellitus without complication, without long- Performed By: #### C BC, CMP, LDLD, FE and TIBC, LIPID, URMA #### [facility] [address] Triglyceride [Mass/volume] i n Serum or PlasmaOrdered By: Ajit Pettit on 01-18-2024 Triglyceride [Mass/Vol] 441 mg/dL High 0-149 [facility] Comment on above: If the triglyceride result [...] Urea nitrogen [Mass/Vol] 10 mg/dL Normal 7-[address] [facility] Comment on above: Order Comment: Reaso n for Exam Type 2 diabetes mellitus without complication, without long- Performed By: #### C BC, CMP, LDLD, FE and TIBC, LIPID, URMA #### [facility] [address] [place] [address] [place] Activated partial thrombopla stin time (aPTT) in platelet poor plasma by coagulation aOrdered By: Diego Noble on 10-16-2023 aPTT Coag (PPP) [Time] 28.2 s 25.1-36.5 [facility] Comment on above: A hematocrit value g reater than 55% may lead to inaccurate results in coagulation testing. Patients having hematocrit values >55% require a special collection tube for coagulation studies. Please contact the laboratory at [phone] for redraw instructions. Alanine aminotransferase [En zymatic activity/volume] in Serum or PlasmaOrdered By: Diego Noble on 10-16-2023 ALT [Catalytic activity/Vol] 10 U/L Normal 7-[address] [facility] Comment on above: Performed By: #### C BC, CMP, LDLD, FE and TIBC, LIPID, URMA #### [facility] [address] [place] [address] [place] Albumin [Mass/volume] in Ser um or Plasma by Bromocresol green (BCG) dye binding methoOrdered By: Diego Noble on 10-16-2023 Albumin BCG dye [Mass/Vol] 3.7 g/dL 3.5-5.[address] [facility] Alkaline phosphatase [Enzyma tic activity/volume] in Serum or PlasmaOrdered By: Diego Noble on 10-16-2023 ALP [Catalytic activity/Vol] 84 U/L Normal 34-[address] [facility] Comment on above: Performed By: #### C BC, CMP, LDLD, FE and TIBC, LIPID, URMA #### [facility] [address] [place] [address] [place] Aspartate aminotransferase [ Enzymatic activity/volume] in Serum or PlasmaOrdered By: Diego Noble on 10-16-2023 AST [Catalytic activity/Vol] 14 U/L Normal 13-[address] [facility] Comment on above: Performed By: #### C BC, CMP, LDLD, FE and TIBC, LIPID, URMA #### [facility] [address] [place] [address] [place] Automated basophil %Ordered By: Diego Noble on 10-16-2023 Basophils/100 WBC (Bld) 2.6 % Normal . [facility] Comment on above: Performed By: #### C BC, CMP, LDLD, FE and TIBC, LIPID, URMA #### [facility] [address] [place] [address] [place] Automated basophil countOrde red By: Diego Noble on 10-16-2023 Basophils (Bld) [#/Vol] 0.4 10*3/uL High 0.0-0.[address] [facility] Comment on above: Result Comment: PERF ORMED BY: [place] [address] PATHOLOGIST FLOOR CLEANER RIDGE HUERTA M.D. Performed By: #### C BC, CMP, LDLD, FE and TIBC, LIPID, URMA #### [address] Automated blood monocyte cou ntOrdered By: Diego Noble on 10-16-2023 Monocytes (Bld) [#/Vol] 0.9 10*3/uL High 0.0-0.[address] [facility] Comment on above: Performed By: #### C BC, CMP, LDLD, FE and TIBC, LIPID, URMA #### [address] Automated eosinophil %Ordere d By: Diego Noble on 10-16-2023 Eosinophils/100 WBC (Bld) 3.3 % Normal . [facility] Comment on above: Performed By: #### C BC, CMP, LDLD, FE and TIBC, LIPID, URMA #### [address] Automated eosinophil countOr dered By: Diego Noble on 10-16-2023 Eosinophils (Bld) [#/Vol] 0.5 10*3/uL High 0.0-0.[address] [facility] Comment on above: Performed By: #### C BC, CMP, LDLD, FE and TIBC, LIPID, URMA #### [address] Automated monocyte %Ordered By: Diego Noble on 10-16-2023 Monocytes/100 WBC (Bld) 6.3 % Normal . [facility] Comment on above: Performed By: #### C BC, CMP, LDLD, FE and TIBC, LIPID, URMA #### [address] Automated neutrophil %Ordere d By: Diego Noble on 10-16-2023 Neutrophils/100 WBC (Bld) 53.8 % Normal . [facility] Comment on above: Performed By: #### C BC, CMP, LDLD, FE and TIBC, LIPID, URMA #### [facility] [address] Bilirubin.total [Mass/volume ] in Serum or PlasmaOrdered By: Diego Noble on 10-16-2023 Bilirubin [Mass/Vol] 0.2 mg/dL Low 0.3-1.0 [facility] Comment on above: Performed By: #### C BC, CMP, LDLD, FE and TIBC, LIPID, URMA #### [address] Blood Cultureon 10-16-2023 Bacteria identified Cx Nom (Bld) NO GROWTH 5 DAYS PERFORMED BY: [place] [address] PATHOLOGIST FLOOR CLEANER RIDGE HUERTA M.D. Normal [facility] Comment on above: Performed By: #### C UBLD, LACTIC ####[address] Bacteria identified Cx Nom (Bld) NO GROWTH 5 DAYS PERFORMED BY: [place] [address] PATHOLOGIST FLOOR CLEANER RIDGE HUERTA M.D. Normal [facility] Comment on above: Performed By: #### C UBLD, LACTIC ####[address] Calcium [Mass/volume] in Ser um or PlasmaOrdered By: Diego Noble on 10-16-2023 Calcium [Mass/Vol] 9.1 mg/dL Normal 8.6-10.3 [facility] Comment on above: Performed By: #### C BC, CMP, LDLD, FE and TIBC, LIPID, URMA #### [address] Carbon dioxide, total [Moles /volume] in Serum or PlasmaOrdered By: Diego Noble on 10-16-2023 CO2 [Moles/Vol] 25.9 mmol/L Normal 21.0-31.0 [facility] Comment on above: Performed By: #### C BC, CMP, LDLD, FE and TIBC, LIPID, URMA #### [facility] [address] Chloride [Moles/volume] in S alissa or PlasmaOrdered By: Diego Noble on 10-16-2023 Chloride [Moles/Vol] 101 mmol/L Normal 98-107 [facility] Comment on above: Performed By: #### C BC, CMP, LDLD, FE and TIBC, LIPID, URMA #### [address] Complete Blood Count Auto Di ffon 10-16-2023 Mean Corpuscular HGB Conc 34.1 g/dL Normal 32.0-35.0 [facility] Comment on above: Performed By: #### C BC, CMP, LDLD, FE and TIBC, LIPID, URMA #### [address] Monocytes/100 WBC (Bld) 20.62 % High 0.00-20.00 [facility] Comment on above: Result Comment: For adults in ED, MDW > 20.0 may be associated with a higher risk of sepsis during the first 12 hrs of hospital admission Performed By: #### C BC, CMP, LDLD, FE and TIBC, LIPID, URMA #### [address] NRBC% 0.1 /100{WBC} Normal 0-0.5 [facility] Comment on above: Performed By: #### C BC, CMP, LDLD, FE and TIBC, LIPID, URMA #### [address] Comprehensive Metabolic Pane mark 10-16-2023 Albumin [Mass/Vol] 3.7 g/dL Normal 3.5-5.7 [facility] Comment on above: Performed By: #### C BC, CMP, LDLD, FE and TIBC, LIPID, URMA #### [address] Creatinine Clr Calc Pharmacy 134.19 Normal [facility] Comment on above: Result Comment: PERF ORMED BY: [place] [address] PATHOLOGIST FLOOR CLEANER RIDGE HUERTA M.D. Performed By: #### C BC, CMP, LDLD, FE and TIBC, LIPID, URMA #### [address] GFR/1.73 sq M.predicted MDRD (S/P/Bld) [Vol rate/Area] mL/min/{1.73_m2} Normal [facility] Comment on above: Performed By: #### C BC, CMP, LDLD, FE and TIBC, LIPID, URMA #### [address] Creatinine [Mass/volume] in Serum or PlasmaOrdered By: Diego Noble on 10-16-2023 Creatinine [Mass/Vol] 0.55 mg/dL Low 0.60-1.20 [facility] Comment on above: Performed By: #### C BC, CMP, LDLD, FE and TIBC, LIPID, URMA #### [address] Erythrocyte distribution wid th [Ratio] by Automated countOrdered By: Diego Noble on 10-16-2023 Erythrocyte distribution width (RBC) [Ratio] 13.0 % Normal 11.9-15.[address] [facility] Comment on above: Performed By: #### C BC, CMP, LDLD, FE and TIBC, LIPID, URMA #### [address] Erythrocytes [#/volume] in B lood by Automated countOrdered By: Diego Noble on 10-16-2023 RBC (Bld) [#/Vol] 3.84 10*6/uL Normal 3.60-5.00 [facility] Comment on above: Performed By: #### C BC, CMP, LDLD, FE and TIBC, LIPID, URMA #### [facility] [address] [place] [address] [place] Glucose [Mass/volume] in Ser um or PlasmaOrdered By: Diego Noble on 10-16-2023 Glucose [Mass/Vol] 197 mg/dL High 70-100 [facility] Comment on above: ADA recommended refe rence rangeRandom Glucose Reference Range is dependent on time and content of last meal. Glucose of more than 200 mg/dL in a nonstressed, ambulatory subject supports the diagnosis of Diabetes Mellitus. Result Comment: [place] Glucose Reference Range is dependent on time and content of last meal. Glucose of more than 200 mg/dL in a nonstressed, ambulatory subject supports the diagnosis of Diabetes Mellitus. ADA recommended reference range Performed By: #### C BC, CMP, LDLD, FE and TIBC, LIPID, URMA #### [facility] [address] [place] [address] [place] Hematocrit [Volume Fraction] of Blood by Automated countOrdered By: Diego Noble on 10-16-2023 Hematocrit (Bld) [Volume fraction] 34.0 % Normal 34.0-46.[address] [facility] Comment on above: Performed By: #### C BC, CMP, LDLD, FE and TIBC, LIPID, URMA #### [facility] [address] [place] [id number] [place] Hemoglobin [Mass/volume] in BloodOrdered By: Diego Noble on 10-16-2023 Hemoglobin (Bld) [Mass/Vol] 11.6 g/dL Low 11.8-15.[address] [facility] Comment on above: Performed By: #### C BC, CMP, LDLD, FE and TIBC, LIPID, URMA #### [facility] [address] [place] [id number] [place] INR in Platelet poor plasma by Coagulation assayOrdered By: Diego Noble on 10-16-2023 INR Coag (PPP) [Relative time] 0.9 {INR} Normal [facility] Comment on above: INR Therapeutic [...] 4.5 Performed By: #### C BC, CMP, LDLD, FE and TIBC, LIPID, URMA #### [facility] [address] Lactate [Moles/volume] in Se rum or PlasmaOrdered By: Diego Noble on 10-16-2023 Lactate [Moles/Vol] 2.1 mmol/L Off scale high 0.5-2.2 [facility] Comment on above: Critical Result : Ca lled to and read back by: MACO BECK at: 10/16/2023 12:33:20 by:ECTOR Result Comment: Crit ical Result : Called to and read back by: MACO BECK at: 10/16/2023 12:33:20 by:ECTOR PERFORMED BY: [facility] [address] [place] [address] PATHOLOGIST FLOOR CLEANER RIDGE HUERTA M.D. Performed By: #### C UBLD, LACTIC ####[facility] [id number] Leukocytes [#/volume] correc cherie for nucleated erythrocytes in Blood by Automated counOrdered By: Diego Noble on 10-16-2023 WBC corrected for nucl RBC Auto (Bld) [#/Vol] 14.3 10*3/uL 3.8-11.[address] [facility] Leukocytes [#/volume] in Blo od by Automated countOrdered By: Diego Noble on 10-16-2023 WBC (Bld) [#/Vol] 14.3 10*3/uL High 3.8-11.6 [facility] Comment on above: Performed By: #### C BC, CMP, LDLD, FE and TIBC, LIPID, URMA #### [facility] [address] Lymphocytes [#/volume] in Bl ood by Automated countOrdered By: Diego Noble on 10-16-2023 Lymphocytes (Bld) [#/Vol] 4.9 10*3/uL High 1.00-4.[address] [facility] Comment on above: Performed By: #### C BC, CMP, LDLD, FE and TIBC, LIPID, URMA #### [facility] [address] Lymphocytes/100 leukocytes i n Blood by Automated countOrdered By: Diego Noble on 10-16-2023 Lymphocytes/100 WBC (Bld) 34.0 % Normal . [facility] Comment on above: Performed By: #### C BC, CMP, LDLD, FE and TIBC, LIPID, URMA #### [facility] [address] MCH [Entitic mass] by Automa cherie countOrdered By: Diego Noble on 10-16-2023 MCH (RBC) [Entitic mass] 30.3 pg Normal 24.7-34.[address] [facility] Comment on above: Performed By: #### C BC, CMP, LDLD, FE and TIBC, LIPID, URMA #### [address] MCHC Auto (RBC) [Mass/Vol]Or dered By: Diego Noble on 10-16-2023 MCHC (RBC) [Mass/Vol] 34.1 g/dL 32.0-35.0 [facility] MCV [Entitic volume] by Auto mated countOrdered By: Diego Noble on 10-16-2023 MCV (RBC) [Entitic vol] 88.7 fL Normal 80-100 [facility] Comment on above: Performed By: #### C BC, CMP, LDLD, FE and TIBC, LIPID, URMA #### [facility] [address] Monocyte distribution width [Entitic volume] in Blood by AutomatedOrdered By: Diego Noble on 10-16-2023 Monocyte distribution width Auto (Bld) [Entitic vol] 20.62 % 0.00-20.[address] [facility] Comment on above: For adults in ED, MD W > 20.0 may be associated with a higher risk of sepsis during the first 12 hrs of hospital admission Neutrophils [#/volume] in Bl ood by Automated countOrdered By: Diego Noble on 10-16-2023 Neutrophils (Bld) [#/Vol] 7.7 10*3/uL Normal 1.8-7.[address] [facility] Comment on above: Performed By: #### C BC, CMP, LDLD, FE and TIBC, LIPID, URMA #### [address] No Panel InformationOrdered By: Diego Noble on 10-16-2023 Estimated GFR (CKD-EPI) > 60.0 mL/Min [facility] Creatinine Clearance (Chem 134.[address] [facility] Nucleated erythrocytes [Pres ence] in Blood by Automated countOrdered By: Diego Noble on 10-16-2023 Nucleated RBC Auto Ql (Bld) 0.1 /100{WBC} 0-0.[address] [facility] Partial Thromboplastin Timeo n 10-16-2023 aPTT Coag (Bld) [Time] 28.2 s Normal 25.1-36.5 [facility] Comment on above: Result Comment: A he matocrit value greater than 55% may lead to inaccurate results in coagulation testing. Patients having hematocrit values >55% require a special collection tube for coagulation studies. Please contact the laboratory at [phone] for redraw instructions. PERFORMED BY: [place] [address] PATHOLOGIST FLOOR CLEANER RIDGE HUERTA M.D. Performed By: #### C BC, CMP, LDLD, FE and TIBC, LIPID, URMA #### [address] Platelet mean volume [Entiti c volume] in Blood by Automated countOrdered By: Diego Noble on 10-16-2023 Platelet mean volume (Bld) [Entitic vol] 6.7 fL Normal 6.3-10.[address] [facility] Comment on above: Performed By: #### C BC, CMP, LDLD, FE and TIBC, LIPID, URMA #### [facility] [address] [place] [phone] [place] Platelets [#/volume] in Bloo d by Automated countOrdered By: Diego Noble on 10-16-2023 Platelets (Bld) [#/Vol] 454 10*3/uL High 150-[address] [facility] Comment on above: Performed By: #### C BC, CMP, LDLD, FE and TIBC, LIPID, URMA #### [facility] [address] [place] [phone] [place] Potassium [Moles/volume] in Serum or PlasmaOrdered By: Diego Noble on 10-16-2023 Potassium [Moles/Vol] 4.3 mmol/L Normal 3.5-5.1 [facility] Comment on above: Performed By: #### C BC, CMP, LDLD, FE and TIBC, LIPID, URMA #### [facility] [address] [place] [id number] [place] Protein [Mass/volume] in Ser um or PlasmaOrdered By: Diego Noble on 10-16-2023 Protein [Mass/Vol] 6.3 g/dL Low 6.4-8.9 [facility] Comment on above: Performed By: #### C BC, CMP, LDLD, FE and TIBC, LIPID, URMA #### [facility] [address] [place] [id number] [facility] Prothrombin time (PT)Ordered By: Diego Noble on 10-16-2023 PT Coag (PPP) [Time] 9.9 s Normal 9.0-12.9 [facility] Comment on above: A hematocrit value g reater than 55% may lead to inaccurate results in coagulation testing. Patients having hematocrit values >55% require a special collection tube for coagulation studies. Please contact the laboratory at [phone] for redraw instructions. Result Comment: A he matocrit value greater than 55% may lead to inaccurate results in coagulation testing. Patients having hematocrit values >55% require a special collection tube for coagulation studies. Please contact the laboratory at [phone] for redraw instructions. Performed By: #### C BC, CMP, LDLD, FE and TIBC, LIPID, URMA #### [facility] [address] Serum globulin measurement b y calculation (mass/volume)Ordered By: Diego Noble on 10-16-2023 Globulin (S) [Mass/Vol] 2.6 g/dL Normal [facility] Comment on above: Performed By: #### C BC, CMP, LDLD, FE and TIBC, LIPID, URMA #### [address] Serum or plasma albumin/glob ulin mass ratioOrdered By: Diego Noble on 10-16-2023 Albumin/Globulin [Mass ratio] 1.4 {ratio} Normal [facility] Comment on above: Performed By: #### C BC, CMP, LDLD, FE and TIBC, LIPID, URMA #### [address] Serum or plasma anion gap de terminationOrdered By: Diego Noble on 10-16-2023 Anion gap [Moles/Vol] 14.4 mmol/L Normal 6.0-15.0 [facility] Comment on above: Performed By: #### C BC, CMP, LDLD, FE and TIBC, LIPID, URMA #### [address] Sodium [Moles/volume] in Ser um or PlasmaOrdered By: Diego Noble on 10-16-2023 Sodium [Moles/Vol] 137 mmol/L Normal 136-145 [facility] Comment on above: Performed By: #### C BC, CMP, LDLD, FE and TIBC, LIPID, URMA #### [address] Urea nitrogen [Mass/volume] in Serum or PlasmaOrdered By: Diego Noble on 10-16-2023 Urea nitrogen [Mass/Vol] 12 mg/dL Normal 7-[address] [facility] Comment on above: Performed By: #### C BC, CMP, LDLD, FE and TIBC, LIPID, URMA #### [address] Automated basophil %Ordered By: Ilene Lopez on 10-09-2023 Basophils/100 WBC (Bld) 0.4 % Normal . [facility] Comment on above: Performed By: #### C BC, CMP, LDLD, FE and TIBC, LIPID, URMA #### [address] Automated basophil countOrde red By: Ilene Lopez on 10-09-2023 Basophils (Bld) [#/Vol] 0.1 10*3/uL Normal 0.0-0.[address] [facility] Comment on above: Result Comment: PERF ORMED BY: [place] [address] PATHOLOGIST FLOOR CLEANER RIDGE HUERTA M.D. Performed By: #### C BC, CMP, LDLD, FE and TIBC, LIPID, URMA #### [address] Automated blood monocyte cou ntOrdered By: Ilene Lopez on 10-09-2023 Monocytes (Bld) [#/Vol] 1.3 10*3/uL High 0.0-0.[address] [facility] Comment on above: Performed By: #### C BC, CMP, LDLD, FE and TIBC, LIPID, URMA #### [address] Automated eosinophil %Ordere d By: Ilene Lopez on 10-09-2023 Eosinophils/100 WBC (Bld) 3.5 % Normal . [facility] Comment on above: Performed By: #### C BC, CMP, LDLD, FE and TIBC, LIPID, URMA #### [address] [place] [address] [place] Automated eosinophil countOr dered By: Ilenehuong Lopez on 10-09-2023 Eosinophils (Bld) [#/Vol] 0.5 10*3/uL High 0.0-0.[address] [facility] Comment on above: Performed By: #### C BC, CMP, LDLD, FE and TIBC, LIPID, URMA #### [facility] [address] Automated monocyte %Ordered By: Ilene Lopez on 10-09-2023 Monocytes/100 WBC (Bld) 9.5 % Normal . [facility] Comment on above: Performed By: #### C BC, CMP, LDLD, FE and TIBC, LIPID, URMA #### [address] Automated neutrophil %Ordere d By: Ilene oLpez on 10-09-2023 Neutrophils/100 WBC (Bld) 70.1 % Normal . [facility] Comment on above: Performed By: #### C BC, CMP, LDLD, FE and TIBC, LIPID, URMA #### [address] Basic Metabolic Panelon Creatinine Clr Calc Pharmacy 153.15 Normal [facility] Comment on above: Result Comment: PERF ORMED BY: [place] [address] PATHOLOGIST FLOOR CLEANER RIDGE HUERTA M.D. Performed By: #### C BC, CMP, LDLD, FE and TIBC, LIPID, URMA #### [address] GFR/1.73 sq M.predicted MDRD (S/P/Bld) [Vol rate/Area] mL/min/{1.73_m2} Normal [facility] Comment on above: Performed By: #### C BC, CMP, LDLD, FE and TIBC, LIPID, URMA #### [address] Calcium [Mass/volume] in Ser um or PlasmaOrdered By: Ilene Lopez on 10-09-2023 Calcium [Mass/Vol] 7.9 mg/dL Low 8.6-10.3 [facility] Comment on above: Performed By: #### C BC, CMP, LDLD, FE and TIBC, LIPID, URMA #### [facility] [address] [place] [phone] [place] Capillary blood glucose ashwini urement by glucometer (mass/volume)Ordered By: Salazar Cabrera on 10-09-2023 Glucose [Mass/Vol] 299 mg/dL Normal [facility] Comment on above: Random Glucose Refer ence Range is dependent on time and content of last meal. Glucose of more than 200 mg/dL in a nonstressed, ambulatory subject supports the diagnosis of Diabetes Mellitus. Result Comment: [place] Glucose Reference Range is dependent on time and content of last meal. Glucose of more than 200 mg/dL in a nonstressed, ambulatory subject supports the diagnosis of Diabetes Mellitus. Performed By: #### C BC, CMP, LDLD, FE and TIBC, LIPID, URMA #### [facility] [address] [place] [phone] [place] Carbon dioxide, total [Moles /volume] in Serum or PlasmaOrdered By: Ilene Lopez on 10-09-2023 CO2 [Moles/Vol] 22.6 mmol/L Normal 21.0-31.0 [facility] Comment on above: Performed By: #### C BC, CMP, LDLD, FE and TIBC, LIPID, URMA #### [facility] [address] [place] [address] [place] Chloride [Moles/volume] in S alissa or PlasmaOrdered By: Ilene Lopez on 10-09-2023 Chloride [Moles/Vol] 105 mmol/L Normal 98-107 [facility] Comment on above: Performed By: #### C BC, CMP, LDLD, FE and TIBC, LIPID, URMA #### [facility] [address] [place] [phone] [place] Clostridioides difficile tox in B tcdB gene [Presence] in Stool by NAYELY with probe deteOrdered By: BONG Pavon on 10-09-2023 C. difficile toxin B tcdB gene NAYELY+probe Ql (Stl) Positive Negative [facility] Comment on above: Results calledat 161 9 on 10/09/23 Testing performed by RT-PCR Clostridium Difficileon Clostridium Difficile Positive Normal Negative [facility] Comment on above: Order Comment: Reaso n for Exam Type 2 diabetes mellitus without complication, without long- Result Comment: Resu lts called at 1619 on 10/09/23 Testing performed by RT-PCR PERFORMED BY: [place] [address] PATHOLOGIST FLOOR CLEANER RIDGE HUERTA M.D. Performed By: #### C BC, CMP, LDLD, FE and TIBC, LIPID, URMA #### [address] Complete Blood Count Auto Di ffon 10-09-2023 Mean Corpuscular HGB Conc 34.0 g/dL Normal 32.0-35.0 [facility] Comment on above: Performed By: #### C BC, CMP, LDLD, FE and TIBC, LIPID, URMA #### [address] NRBC% 0.1 /100{WBC} Normal 0-0.5 [facility] Comment on above: Performed By: #### C BC, CMP, LDLD, FE and TIBC, LIPID, URMA #### [address] Creatinine [Mass/volume] in Serum or PlasmaOrdered By: Ilene Lopez on 10-09-2023 Creatinine [Mass/Vol] 0.48 mg/dL Low 0.60-1.20 [facility] Comment on above: Performed By: #### C BC, CMP, LDLD, FE and TIBC, LIPID, URMA #### [address] Erythrocyte distribution wid th [Ratio] by Automated countOrdered By: Ilene Lopez on 10-09-2023 Erythrocyte distribution width (RBC) [Ratio] 13.2 % Normal 11.9-15.[address] [facility] Comment on above: Performed By: #### C BC, CMP, LDLD, FE and TIBC, LIPID, URMA #### [facility] [address] Erythrocytes [#/volume] in B lood by Automated countOrdered By: Ilene Calderon on 10-09-2023 RBC (Bld) [#/Vol] 3.44 10*6/uL Low 3.60-5.00 [facility] Comment on above: Performed By: #### C BC, CMP, LDLD, FE and TIBC, LIPID, URMA #### [address] Glucose Poct Glucometerson 0 10-09-2023 Commemt1 Glu2: Cleaned Meter Normal [facility] Comment on above: Result Comment: PERF ORMED BY: [place] [address] PATHOLOGIST FLOOR CLEANER RIDGE HUERTA M.D. Performed By: #### C BC, CMP, LDLD, FE and TIBC, LIPID, URMA #### [address] Commemt1 Glu2: Cleaned Meter Normal [facility] Comment on above: Result Comment: PERF ORMED BY: [place] [address] PATHOLOGIST FLOOR CLEANER RIDGE HUERTA M.D. Performed By: #### C BC, CMP, LDLD, FE and TIBC, LIPID, URMA #### [address] Glucose [Mass/Vol] 188 mg/dL Normal [facility] Comment on above: Result Comment: [place] Glucose Reference Range is dependent on time and content of last meal. Glucose of more than 200 mg/dL in a nonstressed, ambulatory subject supports the diagnosis of Diabetes Mellitus. Performed By: #### C BC, CMP, LDLD, FE and TIBC, LIPID, URMA #### [facility] [address] [place] [address] [place] Glucose [Mass/volume] in Ser um or PlasmaOrdered By: Ilene Lopez on 10-09-2023 Glucose [Mass/Vol] 143 mg/dL High 70-100 [facility] Comment on above: ADA recommended refe rence rangeRandom Glucose Reference Range is dependent on time and content of last meal. Glucose of more than 200 mg/dL in a nonstressed, ambulatory subject supports the diagnosis of Diabetes Mellitus. Result Comment: [place] om Glucose Reference Range is dependent on time and content of last meal. Glucose of more than 200 mg/dL in a nonstressed, ambulatory subject supports the diagnosis of Diabetes Mellitus. ADA recommended reference range Performed By: #### C BC, CMP, LDLD, FE and TIBC, LIPID, URMA #### [facility] [address] Hematocrit [Volume Fraction] of Blood by Automated countOrdered By: Ilene Lopez on 10-09-2023 Hematocrit (Bld) [Volume fraction] 30.3 % Low 34.0-46.[address] [facility] Comment on above: Performed By: #### C BC, CMP, LDLD, FE and TIBC, LIPID, URMA #### [facility] [address] Hemoglobin [Mass/volume] in BloodOrdered By: Ilene Lopez on 10-09-2023 Hemoglobin (Bld) [Mass/Vol] 10.3 g/dL Low 11.8-15.[address] [facility] Comment on above: Performed By: #### C BC, CMP, LDLD, FE and TIBC, LIPID, URMA #### [place] [address] [place] Leukocytes [#/volume] correc cherie for nucleated erythrocytes in Blood by Automated counOrdered By: Ilene Lopez on 10-09-2023 WBC corrected for nucl RBC Auto (Bld) [#/Vol] 13.6 10*3/uL 3.8-11.[address] [facility] Leukocytes [#/volume] in Blo od by Automated countOrdered By: Ilene Calderon on 10-09-2023 WBC (Bld) [#/Vol] 13.6 10*3/uL High 3.8-11.6 [facility] Comment on above: Performed By: #### C BC, CMP, LDLD, FE and TIBC, LIPID, URMA #### [facility] [address] Lymphocytes [#/volume] in Bl ood by Automated countOrdered By: Ilene Calderon on 10-09-2023 Lymphocytes (Bld) [#/Vol] 2.2 10*3/uL Normal 1.00-4.[address] [facility] Comment on above: Performed By: #### C BC, CMP, LDLD, FE and TIBC, LIPID, URMA #### [facility] [address] [place] [address] [place] Lymphocytes/100 leukocytes i n Blood by Automated countOrdered By: Ilene Lopez on 10-09-2023 Lymphocytes/100 WBC (Bld) 16.5 % Normal . [facility] Comment on above: Performed By: #### C BC, CMP, LDLD, FE and TIBC, LIPID, URMA #### [facility] [address] MCH [Entitic mass] by Automa cherie countOrdered By: Ilene Lopez on 10-09-2023 MCH (RBC) [Entitic mass] 29.9 pg Normal 24.7-34.[address] [facility] Comment on above: Performed By: #### C BC, CMP, LDLD, FE and TIBC, LIPID, URMA #### [facility] [address] [place] [address] MCHC Auto (RBC) [Mass/Vol]Or dered By: Ilene Lopez on 10-09-2023 MCHC (RBC) [Mass/Vol] 34.0 g/dL 32.0-35.0 [facility] MCV [Entitic volume] by Auto mated countOrdered By: Ilene Lopez on 10-09-2023 MCV (RBC) [Entitic vol] 88.1 fL Normal 80-100 [facility] Comment on above: Performed By: #### C BC, CMP, LDLD, FE and TIBC, LIPID, URMA #### [facility] [address] Neutrophils [#/volume] in Bl ood by Automated countOrdered By: Ilene Calderon on 10-09-2023 Neutrophils (Bld) [#/Vol] 9.6 10*3/uL High 1.8-7.[address] [facility] Comment on above: Performed By: #### C BC, CMP, LDLD, FE and TIBC, LIPID, URMA #### [address] No Panel InformationOrdered By: Salazar Cabrera on 10-09-2023 Bedside Glucose Comment Glu2: cleaned meter [facility] No Panel InformationOrdered By: Ilene Lopez on 10-09-2023 Estimated GFR (CKD-EPI) > 60.0 mL/Min [facility] Creatinine Clearance (Chem 153.[address] [facility] Nucleated erythrocytes [Pres ence] in Blood by Automated countOrdered By: Ilene Lopez on 10-09-2023 Nucleated RBC Auto Ql (Bld) 0.1 /100{WBC} 0-0.[address] [facility] Platelet mean volume [Entiti c volume] in Blood by Automated countOrdered By: Ilene Lopez on 10-09-2023 Platelet mean volume (Bld) [Entitic vol] 7.9 fL Normal 6.3-10.[address] [facility] Comment on above: Performed By: #### C BC, CMP, LDLD, FE and TIBC, LIPID, URMA #### [facility] [address] [place] [address] Platelets [#/volume] in Bloo d by Automated countOrdered By: Ilene Lopez on 10-09-2023 Platelets (Bld) [#/Vol] 242 10*3/uL Normal 150-[address] [facility] Comment on above: Performed By: #### C BC, CMP, LDLD, FE and TIBC, LIPID, URMA #### [facility] [address] [place] [address] Potassium [Moles/volume] in Serum or PlasmaOrdered By: Ilene Lopez on 10-09-2023 Potassium [Moles/Vol] 3.4 mmol/L Low 3.5-5.1 [facility] Comment on above: Performed By: #### C BC, CMP, LDLD, FE and TIBC, LIPID, URMA #### [facility] [address] [place] [address] Serum or plasma anion gap de terminationOrdered By: Ilene Lopez on 10-09-2023 Anion gap [Moles/Vol] 11.8 mmol/L Normal 6.0-15.0 [facility] Comment on above: Performed By: #### C BC, CMP, LDLD, FE and TIBC, LIPID, URMA #### [address] Sodium [Moles/volume] in Ser um or PlasmaOrdered By: Ilene Lopez on 10-09-2023 Sodium [Moles/Vol] 136 mmol/L Normal 136-145 [facility] Comment on above: Performed By: #### C BC, CMP, LDLD, FE and TIBC, LIPID, URMA #### [address] Stool Cultureon 10-09-2023 Stool culture Comment c. diff Negative for Shiga Toxin 1 Negative for Shiga Toxin 2 A negative Shiga Toxin result may occur if the antigen level in the specimen is below the detection limit of the assay. Stool culture results No Salmonella, Shigella, Campy or E. coli 0157:H7 Isolated PERFORMED BY: [place] [id number] PATHOLOGIST FLOOR CLEANER RIDGE HUERTA M.D. Normal [facility] Comment on above: Performed By: #### C BC, CMP, LDLD, FE and TIBC, LIPID, URMA #### [facility] [address] Stool bacteria identificatio n by cultureOrdered By: BONG Pavon on 10-09-2023 Bacteria identified Cx Nom (Stl) [facility] Urea nitrogen [Mass/volume] in Serum or PlasmaOrdered By: Ilene Lopez on 10-09-2023 Urea nitrogen [Mass/Vol] 6 mg/dL Low 7-[address] [facility] Comment on above: Performed By: #### C BC, CMP, LDLD, FE and TIBC, LIPID, URMA #### [place] [address] [place] Alanine aminotransferase [En zymatic activity/volume] in Serum or PlasmaOrdered By: BONG Pavon on 10-08-2023 ALT [Catalytic activity/Vol] 31 U/L Normal 7-[address] [facility] Comment on above: Performed By: #### C BC, CMP, LDLD, FE and TIBC, LIPID, URMA #### [facility] [address] [place] [address] [place] Albumin [Mass/volume] in Ser um or Plasma by Bromocresol green (BCG) dye binding methoOrdered By: BONG Pavon on 10-08-2023 Albumin BCG dye [Mass/Vol] 3.7 g/dL 3.5-5.[address] [facility] Alkaline phosphatase [Enzyma tic activity/volume] in Serum or PlasmaOrdered By: BONG Pavon on 10-08-2023 ALP [Catalytic activity/Vol] 61 U/L Normal 34-[address] [facility] Comment on above: Performed By: #### C BC, CMP, LDLD, FE and TIBC, LIPID, URMA #### [place] [address] [place] Aspartate aminotransferase [ Enzymatic activity/volume] in Serum or PlasmaOrdered By: BONG Pavon on 10-08-2023 AST [Catalytic activity/Vol] 40 U/L High 13-[address] [facility] Comment on above: Performed By: #### C BC, CMP, LDLD, FE and TIBC, LIPID, URMA #### [facility] [address] Automated erythrocytes count in urine sediment (number/area)Ordered By: BONG Pavon on 10-08-2023 RBC Auto (Urine sed) [#/Area] 5-9 [HPF] 0-[address] [facility] Automated leukocytes count i n urine sediment (number/area)Ordered By: BONG Pavon on 10-08-2023 WBC Auto (Urine sed) [#/Area] 3-4 [HPF] 0-[address] [facility] Automated urine color determ inationOrdered By: BONG Pavon on 10-08-2023 Color (U) [place] Critically abnormal Yellow [facility] Comment on above: Order Comment: Name Collection Type:: Martinez Catheter Performed By: #### A DDONUAPLUS ####[facility] [id number] Automated urine hyaline cast s count (number/volume)Ordered By: BONG Pavon on 10-08-2023 Hyaline casts Auto (U) [#/Vol] None seen [LPF] 0-[address] [facility] Bilirubin Test strip Ql (U)O rdered By: BONG Pavon on 10-08-2023 Bilirubin Ql (U) 1+ Negative [facility] Bilirubin.total [Mass/volume ] in Serum or PlasmaOrdered By: BONG Pavon on 10-08-2023 Bilirubin [Mass/Vol] 0.6 mg/dL Normal 0.3-1.0 [facility] Comment on above: Performed By: #### C BC, CMP, LDLD, FE and TIBC, LIPID, URMA #### [facility] [address] abdomen pelvis w conon CT abdomen pelvis w con [facility] [place] [address] [place] [address] CT Scan Report Signed Patient: Rachel Mcgarry MR#: [id number] 1 : 1980 Acct:[id number] Age/Sex: 43 / F ADM Date: 10/07/23 Loc: Room: [address] [place] [address] Type: ADM IN Attending Dr: Beltran Pavon MD Copies to: BONG Motley Ordering Provider: BONG Motley Date of Service: 10/08/23 CT/CT abdomen pelvis w con: Abdominal pain/distended abdomen CT abdomen and pelvis with contrast CLINICAL DATA: Abdominal pain, distention and vomiting. Recent hysterectomy. COMPARISON: 10/07/2023 from [facility]. No report is available at this time. [...] Eda Yañez M.D.10/08/2023 12:09 PM Dictation Location: [place] [address] Transcribed By: [facility] 10/08/23 1209 Dictated By: Eda Yañez MD 10/08/23 1142 Signed By: 10/08/23 1209 Normal [facility] Casts typing in urine sedime nt by light microscopyOrdered By: BONG Pavon on 10-08-2023 Casts LM Nom (Urine sed) None seen [LPF] None Seen [facility] Complete Blood Count Auto Di ffon 10-08-2023 Basophils (Bld) [#/Vol] 0.1 10*3/uL Normal 0.0-0.2 [facility] Comment on above: Result Comment: PERF ORMED BY: [place] [address] PATHOLOGIST FLOOR CLEANER RIDGE HUERTA M.D. Performed By: #### C BC, CMP, LDLD, FE and TIBC, LIPID, URMA #### [address] Basophils/100 WBC (Bld) 0.5 % Normal . T gavin [facility] Comment on above: Performed By: #### C BC, CMP, LDLD, FE and TIBC, LIPID, URMA #### [address] Eosinophils (Bld) [#/Vol] 0.2 10*3/uL Normal 0.0-0.45 [facility] Comment on above: Performed By: #### C BC, CMP, LDLD, FE and TIBC, LIPID, URMA #### [address] Eosinophils/100 WBC (Bld) 1.3 % Normal . [facility] Comment on above: Performed By: #### C BC, CMP, LDLD, FE and TIBC, LIPID, URMA #### [address] Erythrocyte distribution width (RBC) [Ratio] 13.2 % Normal 11.9-15.3 [facility] Comment on above: Performed By: #### C BC, CMP, LDLD, FE and TIBC, LIPID, URMA #### [address] Hematocrit (Bld) [Volume fraction] 35.9 % Normal 34.0-46.4 [facility] Comment on above: Performed By: #### C BC, CMP, LDLD, FE and TIBC, LIPID, URMA #### [address] Hemoglobin (Bld) [Mass/Vol] 12.1 g/dL Normal 11.8-15.4 [facility] Comment on above: Performed By: #### C BC, CMP, LDLD, FE and TIBC, LIPID, URMA #### [address] Lymphocytes (Bld) [#/Vol] 3.0 10*3/uL Normal 1.00-4.8 [facility] Comment on above: Performed By: #### C BC, CMP, LDLD, FE and TIBC, LIPID, URMA #### [address] Lymphocytes/100 WBC (Bld) 16.8 % Normal . [facility] Comment on above: Performed By: #### C BC, CMP, LDLD, FE and TIBC, LIPID, URMA #### [address] MCH (RBC) [Entitic mass] 29.7 pg Normal 24.7-34.3 [facility] Comment on above: Performed By: #### C BC, CMP, LDLD, FE and TIBC, LIPID, URMA #### [address] MCV (RBC) [Entitic vol] 88.3 fL Normal 80-100 [facility] Comment on above: Performed By: #### C BC, CMP, LDLD, FE and TIBC, LIPID, URMA #### [address] Mean Corpuscular HGB Conc 33.6 g/dL Normal 32.0-35.0 [facility] Comment on above: Performed By: #### C BC, CMP, LDLD, FE and TIBC, LIPID, URMA #### [address] Monocytes (Bld) [#/Vol] 1.5 10*3/uL High 0.0-0.8 [facility] Comment on above: Performed By: #### C BC, CMP, LDLD, FE and TIBC, LIPID, URMA #### [address] Monocytes/100 WBC (Bld) 8.4 % Normal . T [facility] Comment on above: Performed By: #### C BC, CMP, LDLD, FE and TIBC, LIPID, URMA #### [address] Neutrophils (Bld) [#/Vol] 12.9 10*3/uL High 1.8-7.7 [facility] Comment on above: Performed By: #### C BC, CMP, LDLD, FE and TIBC, LIPID, URMA #### [address] Neutrophils/100 WBC (Bld) 73.0 % Normal . [facility] Comment on above: Performed By: #### C BC, CMP, LDLD, FE and TIBC, LIPID, URMA #### [address] NRBC% 0.1 /100{WBC} Normal 0-0.5 [facility] Comment on above: Performed By: #### C BC, CMP, LDLD, FE and TIBC, LIPID, URMA #### [address] Platelet mean volume (Bld) [Entitic vol] 7.9 fL Normal 6.3-10.7 [facility] Comment on above: Performed By: #### C BC, CMP, LDLD, FE and TIBC, LIPID, URMA #### [address] Platelets (Bld) [#/Vol] 274 10*3/uL Normal 150-450 [facility] Comment on above: Performed By: #### C BC, CMP, LDLD, FE and TIBC, LIPID, URMA #### [address] RBC (Bld) [#/Vol] 4.06 10*6/uL Normal 3.60-5.00 [facility] Comment on above: Performed By: #### C BC, CMP, LDLD, FE and TIBC, LIPID, URMA #### [address] WBC (Bld) [#/Vol] 17.6 10*3/uL High 3.8-11.6 [facility] Comment on above: Performed By: #### C BC, CMP, LDLD, FE and TIBC, LIPID, URMA #### [address] Comprehensive Metabolic Pane mark 10-08-2023 Albumin [Mass/Vol] 3.7 g/dL Normal 3.5-5.7 [facility] Comment on above: Performed By: #### C BC, CMP, LDLD, FE and TIBC, LIPID, URMA #### [address] Anion gap [Moles/Vol] 14.8 mmol/L Normal 6.0-15.0 [facility] e [facility] Comment on above: Performed By: #### C BC, CMP, LDLD, FE and TIBC, LIPID, URMA #### [address] Calcium [Mass/Vol] 7.8 mg/dL Low 8.6-10.3 [facility] Comment on above: Performed By: #### C BC, CMP, LDLD, FE and TIBC, LIPID, URMA #### [address] Chloride [Moles/Vol] 104 mmol/L Normal 98-107 [facility] Comment on above: Performed By: #### C BC, CMP, LDLD, FE and TIBC, LIPID, URMA #### [address] CO2 [Moles/Vol] 20.2 mmol/L Low 21.0-31.0 [facility] Comment on above: Performed By: #### C BC, CMP, LDLD, FE and TIBC, LIPID, URMA #### [address] Creatinine [Mass/Vol] 0.58 mg/dL Low 0.60-1.20 [facility] Comment on above: Performed By: #### C BC, CMP, LDLD, FE and TIBC, LIPID, URMA #### [address] Creatinine Clr Calc Pharmacy 126.74 Normal [facility] Comment on above: Result Comment: PERF ORMED BY: [place] [address] PATHOLOGIST FLOOR CLEANER RIDGE HUERTA M.D. Performed By: #### C BC, CMP, LDLD, FE and TIBC, LIPID, URMA #### [address] GFR/1.73 sq M.predicted MDRD (S/P/Bld) [Vol rate/Area] mL/min/{1.73_m2} Normal [facility] Comment on above: Performed By: #### C BC, CMP, LDLD, FE and TIBC, LIPID, URMA #### [address] Glucose [Mass/Vol] 155 mg/dL High 70-100 [facility] Comment on above: Result Comment: [facility] Glucose Reference Range is dependent on time and content of last meal. Glucose of more than 200 mg/dL in a nonstressed, ambulatory subject supports the diagnosis of Diabetes Mellitus. ADA recommended reference range Performed By: #### C BC, CMP, LDLD, FE and TIBC, LIPID, URMA #### [address] Potassium [Moles/Vol] 4.0 mmol/L Normal 3.5-5.1 [facility] Comment on above: Performed By: #### C BC, CMP, LDLD, FE and TIBC, LIPID, URMA #### [address] Sodium [Moles/Vol] 135 mmol/L Low 136-145 [facility] Comment on above: Performed By: #### C BC, CMP, LDLD, FE and TIBC, LIPID, URMA #### [address] Urea nitrogen [Mass/Vol] 10 mg/dL Normal 7-25 [facility] Comment on above: Performed By: #### C BC, CMP, LDLD, FE and TIBC, LIPID, URMA #### [address] Albumin [Mass/Vol] 3.7 g/dL Normal 3.5-5.7 [facility] Comment on above: Performed By: #### C MP, LACTIC ####[address] Albumin/Globulin [Mass ratio] 1.5 {ratio} Normal [facility] Comment on above: Performed By: #### C MP, LACTIC ####[place] [id number] [facility] ALP [Catalytic activity/Vol] 62 U/L Normal 34-104 [facility] Comment on above: Performed By: #### C MP, LACTIC ####[place] [id number] [facility] ALT [Catalytic activity/Vol] 34 U/L Normal 7-52 [facility] Comment on above: Performed By: #### C MP, LACTIC ####[address] [place] [address] [place] Anion gap [Moles/Vol] 14.3 mmol/L Normal 6.0-15.0 [facility] e [facility] Comment on above: Performed By: #### C MP, LACTIC ####[address] AST [Catalytic activity/Vol] 74 U/L High 13-39 [facility] Comment on above: Performed By: #### C MP, LACTIC ####[address] Bilirubin [Mass/Vol] 0.5 mg/dL Normal 0.3-1.0 [facility] Comment on above: Performed By: #### C MP, LACTIC ####[address] Calcium [Mass/Vol] 7.9 mg/dL Low 8.6-10.3 [facility] Comment on above: Performed By: #### C MP, LACTIC ####[address] Chloride [Moles/Vol] 102 mmol/L Normal 98-107 [facility] Comment on above: Performed By: #### C MP, LACTIC ####[address] CO2 [Moles/Vol] 21.0 mmol/L Normal 21.0-31.0 [facility] Comment on above: Performed By: #### C MP, LACTIC ####[address] Creatinine [Mass/Vol] 0.56 mg/dL Low 0.60-1.20 [facility] Comment on above: Performed By: #### C MP, LACTIC ####[address] Creatinine Clr Calc Pharmacy 131.27 Normal [facility] Comment on above: Result Comment: PERF ORMED BY: [address] [place] [address] PATHOLOGIST FLOOR CLEANER JIANLAN SUN M.D. Performed By: #### C MP, LACTIC ####[address] [address] [facility] GFR/1.73 sq M.predicted MDRD (S/P/Bld) [Vol rate/Area] mL/min/{1.73_m2} Normal [facility] Comment on above: Performed By: #### C MP, LACTIC ####[place] [id number] [facility] Globulin (S) [Mass/Vol] 2.4 g/dL Normal T he [facility] Comment on above: Performed By: #### C MP, LACTIC ####[place] [id number] [facility] Glucose [Mass/Vol] 208 mg/dL High 70-100 [facility] Comment on above: Result Comment: [facility] Glucose Reference Range is dependent on time and content of last meal. Glucose of more than 200 mg/dL in a nonstressed, ambulatory subject supports the diagnosis of Diabetes Mellitus. ADA recommended reference range Performed By: #### C MP, LACTIC ####[place] [id number] [facility] Potassium [Moles/Vol] 4.3 mmol/L Normal 3.5-5.1 [facility] Comment on above: Performed By: #### C MP, LACTIC ####[place] [id number] [facility] Protein [Mass/Vol] 6.1 g/dL Low 6.4-8.9 [facility] Comment on above: Performed By: #### C MP, LACTIC ####[place] [id number] [facility] Sodium [Moles/Vol] 133 mmol/L Low 136-145 [facility] Comment on above: Performed By: #### C MP, LACTIC ####[place] [id number] [facility] Urea nitrogen [Mass/Vol] 9 mg/dL Normal 7-25 [facility] Comment on above: Performed By: #### C MP, LACTIC ####[address] [place] [address] [facility] Dipstick and Microscopicon 0 10-08-2023 Appearance (U) Turbid Critically abnormal Clear [facility] Comment on above: Order Comment: Name Collection Type:: Martinez Catheter Performed By: #### A DDONUAPLUS ####[address] [address] [facility] Bacteria,Urine None Seen Normal None Seen [facility] Comment on above: Order Comment: Name Collection Type:: Martinez Catheter Performed By: #### A DDONUAPLUS ####[address] [address] [facility] Bilirubin,Urine 1+ High Negative [facility] Comment on above: Order Comment: Name Collection Type:: Martinez Catheter Performed By: #### A DDONUAPLUS ####[place] [id number] [facility] Glucose Ql (U) 250 mg/dL High Normal [facility] Comment on above: Order Comment: Name Collection Type:: Martinez Catheter Performed By: #### A DDONUAPLUS ####[address] [address] [facility] Hyaline Casts,Urine None Seen Normal 0-1 [facility] Comment on above: Order Comment: Name Collection Type:: Martinez Catheter Performed By: #### A DDONUAPLUS ####[address] [address] [facility] Ketones Ql (U) Trace High Negative [facility] Comment on above: Order Comment: Name Collection Type:: Martinez Catheter Performed By: #### A DDONUAPLUS ####[address] [address] [facility] Leukocyte esterase Test strip Ql (U) Negative Normal Negative [facility] Comment on above: Order Comment: Name Collection Type:: Martinez Catheter Performed By: #### A DDONUAPLUS ####[address] [address] [facility] Nitrite,Urine Negative Normal Negative [facility] Comment on above: Order Comment: Name Collection Type:: Martinez Catheter Performed By: #### A DDONUAPLUS ####[place] [id number] [facility] Occult Blood,Urine Negative Normal Negative [facility] Comment on above: Order Comment: Name Collection Type:: Martinez Catheter Result Comment: PERF ORMED BY: [address] [place] [address] PATHOLOGIST FLOOR CLEANER RIDGE HUERTA M.D. Performed By: #### A DDONUAPLUS ####[address] Other Casts,Urine None Seen Normal None Seen [facility] Comment on above: Order Comment: Name Collection Type:: Martinez Catheter Result Comment: PERF ORMED BY: [place] [address] PATHOLOGIST FLOOR CLEANER RIDGE HUERTA M.D. Performed By: #### A DDONUAPLUS ####[place] [id number] [facility] RBC,Urine 5-9 High 0-4 [facility] Comment on above: Order Comment: Name Collection Type:: Martinez Catheter Performed By: #### A DDONUAPLUS ####[address] Specificy [facility],Urine > 1.050 High 1.00 1-1.03 0 [facility] Comment on above: Order Comment: Name Collection Type:: Martinez Catheter Performed By: #### A DDONUAPLUS ####[place] [id number] [facility] Squamous Epithelial Cell,Urine 5-9 High 0-2 [facility] Comment on above: Order Comment: Name Collection Type:: Martinez Catheter Performed By: #### A DDONUAPLUS ####[place] [id number] [facility] Urobilinogen,Urine Normal Normal Normal [facility] Comment on above: Order Comment: Name Collection Type:: Martinez Catheter Performed By: #### A DDONUAPLUS ####[place] [address] [place] WBC,Urine 3-4 Normal 0-4 [facility] Comment on above: Order Comment: Name Collection Type:: Martinez Catheter Performed By: #### A DDONUAPLUS ####[facility] [id number] Glucose Poct Glucometerson 0 10-08-2023 Glucose [Mass/Vol] 194 mg/dL Normal [facility] Comment on above: Result Comment: [facility] Glucose Reference Range is dependent on time and content of last meal. Glucose of more than 200 mg/dL in a nonstressed, ambulatory subject supports the diagnosis of Diabetes Mellitus. PERFORMED BY: [place] [address] PATHOLOGIST FLOOR CLEANER RIDGE HUERTA M.D. Performed By: #### C BC, CMP, LDLD, FE and TIBC, LIPID, URMA #### [facility] [address] [place] [address] Commemt1 Glu2: Cleaned Meter Normal [facility] Comment on above: Result Comment: PERF ORMED BY: [facility] [address] [place] [address] PATHOLOGIST FLOOR CLEANER RIDGE HUERTA M.D. Performed By: #### C BC, CMP, LDLD, FE and TIBC, LIPID, URMA #### [facility] [address] Glucose [Mass/Vol] 265 mg/dL Normal [facility] Comment on above: Result Comment: [facility] Glucose Reference Range is dependent on time and content of last meal. Glucose of more than 200 mg/dL in a nonstressed, ambulatory subject supports the diagnosis of Diabetes Mellitus. Performed By: #### C BC, CMP, LDLD, FE and TIBC, LIPID, URMA #### [address] Commemt1 Glu2: Cleaned Meter Normal [facility] Comment on above: Result Comment: PERF ORMED BY: [facility] [address] [place] [address] PATHOLOGIST FLOOR CLEANER RIDGE HUERTA M.D. Performed By: #### C BC, CMP, LDLD, FE and TIBC, LIPID, URMA #### [facility] [address] Glucose [Mass/Vol] 166 mg/dL Normal [facility] Comment on above: Result Comment: [place] Glucose Reference Range is dependent on time and content of last meal. Glucose of more than 200 mg/dL in a nonstressed, ambulatory subject supports the diagnosis of Diabetes Mellitus. Performed By: #### C BC, CMP, LDLD, FE and TIBC, LIPID, URMA #### [facility] [address] Glucose [Mass/Vol] 168 mg/dL Normal [facility] Comment on above: Result Comment: [place] [facility] Glucose Reference Range is dependent on time and content of last meal. Glucose of more than 200 mg/dL in a nonstressed, ambulatory subject supports the diagnosis of Diabetes Mellitus. PERFORMED BY: [address] [place] [address] PATHOLOGIST FLOOR CLEANER RIDGE HUERTA M.D. Performed By: #### C BC, CMP, LDLD, FE and TIBC, LIPID, URMA #### [facility] [address] Ketones Auto test strip (U) [Mass/Vol]Ordered By: BONG Pavon on 10-08-2023 Ketones (U) [Mass/Vol] Trace Negative [facility] Lactate [Moles/volume] in Se rum or PlasmaOrdered By: BONG Pavon on 10-08-2023 Lactate [Moles/Vol] 1.9 mmol/L 0.5-2.2 [facility] Lactic Acidon 10-08-2023 Lactate [Moles/Vol] 2.0 mmol/L Off scale high 0.5-2.2 [facility] [facility] Comment on above: Result Comment: Crit ical Result : Called to and read back by: BERT JAEGER/Bon at: 10/08/2023 07:31:51 by:[id number] PERFORMED BY: [place] [address] PATHOLOGIST FLOOR CLEANER RIDGE HUERTA M.D. Performed By: #### C BC, CMP, LDLD, FE and TIBC, LIPID, URMA #### [facility] [address] [place] [address] Lactate [Moles/Vol] 2.6 mmol/L Off scale high 0.5-2.2 T he [facility] Comment on above: Result Comment: Crit ical Result : Called to and read back by: CLARISSA PATEL at: 10/08/2023 00:48:06 by:HENRY PERFORMED BY: [place] [address] PATHOLOGIST FLOOR CLEANER RIDGE HUERTA M.D. Performed By: #### C MP, LACTIC ####[address] Lactic Acid Reflexon 024 Lactic Acid Reflex 1.9 mmol/L Normal 0.5-2.2 [facility] Comment on above: Result Comment: PERF ORMED BY: [place] [address] PATHOLOGIST FLOOR CLEANER RIDGE HUERTA M.D. Performed By: #### L ACTIC RFX ####[address] Nitrite Test strip Ql (U)Ord ered By: BONG Pavon on 10-08-2023 Nitrite Ql (U) Negative Negative [facility] Protein [Mass/volume] in Ser um or PlasmaOrdered By: BONG Pavon on 10-08-2023 Protein [Mass/Vol] 6.3 g/dL Low 6.4-8.9 [facility] Comment on above: Performed By: #### C BC, CMP, LDLD, FE and TIBC, LIPID, URMA #### [facility] [address] [place] [address] Serum globulin measurement b y calculation (mass/volume)Ordered By: BONG Pavon on 10-08-2023 Globulin (S) [Mass/Vol] 2.6 g/dL Normal [facility] Comment on above: Performed By: #### C BC, CMP, LDLD, FE and TIBC, LIPID, URMA #### [facility] [address] [place] [address] [place] Serum or plasma albumin/glob ulin mass ratioOrdered By: BONG Pavon on 10-08-2023 Albumin/Globulin [Mass ratio] 1.4 {ratio} Normal [facility] Comment on above: Performed By: #### C BC, CMP, LDLD, FE and TIBC, LIPID, URMA #### [facility] [address] Specific gravity Auto test s trip (U) [Rel density]Ordered By: BONG Pavon on 10-08-2023 Specific gravity (U) [Rel density] > 1.050 1.001-1.[address] [facility] Squamous epithelial cells de tection in urine sediment by light microscopyOrdered By: BONG Pavon on 10-08-2023 Epithelial cells.squamous LM Ql (Urine sed) 5-9 [HPF] 0-[address] [facility] Urine bacteria detection by automated methodOrdered By: BONG Pavon on 10-08-2023 Bacteria Auto Ql (U) None seen None Seen [facility] Urine clarity by refractomet ry automatedOrdered By: BONG Pavon on 10-08-2023 Clarity Refractometry automated (U) Turbid Clear [facility] Urine glucose measurement by automated test strip (mass/volume)Ordered By: ARIELLE aPvon on 10-08-2023 Glucose Auto test strip (U) [Mass/Vol] 250 mg/dL Normal [facility] Urine hemoglobin detection b y automated test stripOrdered By: BONG Pavon on 10-08-2023 Hemoglobin Auto test strip Ql (U) Negative Negative [facility] Urine leukocyte esterase det ection by automated test stripOrdered By: BONG Pavon on 10-08-2023 Leukocyte esterase Auto test strip Ql (U) Negative Negative [facility] Urine pH measurement by auto mated test stripOrdered By: BONG Pavon on 10-08-2023 pH (U) 5.5 [pH] Normal 5.0-9.[address] [facility] Comment on above: Order Comment: Name Collection Type:: Martinez Catheter Performed By: #### A DDONUAPLUS ####[id number] [place] [address] [facility] Urine protein measurement by automated test strip (mass/volume)Ordered By: ARIELLE Pavon on 10-08-2023 Protein (U) [Mass/Vol] 30 mg/dL High Negative [facility] Comment on above: Order Comment: Name Collection Type:: Martinez Catheter Performed By: #### A DDONUAPLUS ####[address] [place] [address] [facility] Urobilinogen Auto test strip (U) [Mass/Vol]Ordered By: BONG Pavon on 10-08-2023 Urobilinogen (U) [Mass/Vol] Normal mg/dL Normal [facility] Capillary blood glucose ashwini urement by glucometer (mass/volume)Ordered By: Carri Hinds on 09-28-2023 Glucose [Mass/Vol] 196 mg/dL Normal [facility] Comment on above: Random Glucose Refer ence Range is dependent on time and content of last meal. Glucose of more than 200 mg/dL in a nonstressed, ambulatory subject supports the diagnosis of Diabetes Mellitus. Result Comment: [place] Glucose Reference Range is dependent on time and content of last meal. Glucose of more than 200 mg/dL in a nonstressed, ambulatory subject supports the diagnosis of Diabetes Mellitus. PERFORMED BY: [facility] [address] [place] [id number] PATHOLOGIST FLOOR CLEANER RIDGE HUERTA M.D. Performed By: #### G EDUARDO ####Point of Care testing, Glucose Poct Glucometerson 1 11-29-2022 Commemt1 Glu2: Cleaned Meter Normal [facility] Comment on above: Result Comment: PERF ORMED BY: [facility] [address] [place] [id number] PATHOLOGIST FLOOR CLEANER RIDGE HUERTA M.D. Performed By: #### C BC, CMP, LDLD, FE and TIBC, LIPID, URMA #### [address] Glucose [Mass/Vol] 153 mg/dL Normal [facility] Comment on above: Result Comment: [facility] Glucose Reference Range is dependent on time and content of last meal. Glucose of more than 200 mg/dL in a nonstressed, ambulatory subject supports the diagnosis of Diabetes Mellitus. Performed By: #### C BC, CMP, LDLD, FE and TIBC, LIPID, URMA #### [facility] [address] HCG ( test) Funmi jackson Ql (U)Ordered By: Mic Álvarez on 09-28-2023 HCG ( test) Ql (U) Negative [facility] HCG,Urineon 09-28-2023 Beta HCG ( test) Ql (U) Negative Normal [facility] Comment on above: Result Comment: PERF ORMED BY: [place] [address] PATHOLOGIST FLOOR CLEANER RIDGE HUERTA M.D. Performed By: #### U HCG #### [address] Mark 09-28-2023 L ------- Specimen: [id number] Received: 09/28/23 Status: BLUE Neal Num: [id number] Spec Type: Surgical Subm Dr: Carri Hinds, DO Tissues: A Uterus w/ or w/o tubes ovaries except neoplastic or prolap (CERVIX, MIGUELINA TU Procedures: , Gross/Micro L5 Age/ Patient Sex Location Account Attending Physician Rachel Mcgarry 43/F OR [id number] Carri Hinds DO SPEC NUM: [id number] RECD: 09/28/23 STATUS: BLUE NEAL NUM: [id number] JOSEPH: 09/28/23 [facility] DR: Carri Hinds DO ENTERED: 09/28/23 [facility] DR: HALLEY TYPE: Surgical DEPT: S ORDERED: [...] an unremarkable, pinpoint lumen on cut section. Implementation Engineer sections are submitted in 6 cassettes as follows: A1 - Anterior cervix A2 - Posterior cervix A3 - Anterior endomyometrium Specimen: [id number] Received: 09/28/23 Status: BLUE Britoeduarda Num: [id number] Spec Type: Surgical Subm Dr: Carri Hinds DO Tissues: A Uterus w/ or w/o tubes ovaries except neoplastic or prolap (CERVIX, MIGUELINA TU Procedures: , Gross/Micro L5 Patient: Rachel Mcgarry [id number] (Continued) Specimen: [id number] Received: 09/28/23 (Continued) Gross Description (Continued) Signed (signature on file) Nikkie Munguia MD 09/29/23 2213 Specimen: [id number] Received: 09/28/23 Status: BLUE Val Num: [id number] Spec Type: Surgical Subm Dr: Carri Hinds DO Tissues: A Uterus w/ or w/o tubes ovaries except neoplastic or prolap (CERVIX, MIGUELINA TU Procedures: , Gross/Micro L5 Patient: Rachel Mcgarry [id number] (Continued) Specimen: [id number] Received: 09/28/23 (Continued) Gross Description (Continued) A4 - Posterior endomyometrium A5 - Right fallopian tube A6 - Left fallopian tube Microscopic Description Six H E slides reviewed. The microscopic examination confirms the diagnosis. CPT Codes 29599 Specimen: [id number] Received: 09/28/23 Status: BLUE Neal Num: [id number] Spec Type: Surgical Subm Dr: Carri Hinds DO Tissues: A Uterus w/ or w/o tubes ovaries except neoplastic or prolap (CERVIX, MIGUELINA TU Procedures: , Gross/Micro L5 Patient: Rachel Mcgarry [id number] (Continued) Signed (signature on file) Nikkie Munguia MD 09/29/23 2213 Normal [facility] No Panel InformationOrdered By: Carri Hinds on 09-28-2023 Bedside Glucose Comment Glu2: cleaned meter [facility] Automated basophil %Ordered By: Carri Hinds on 09-16-2023 Basophils/100 WBC (Bld) 0.6 % Normal . [facility] Comment on above: Performed By: #### C BC, CMP, LDLD, FE and TIBC, LIPID, URMA #### [address] Automated basophil countOrde red By: Carri Hinds on 09-16-2023 Basophils (Bld) [#/Vol] 0.1 10*3/uL Normal 0.0-0.[address] [facility] Comment on above: Result Comment: PERF ORMED BY: [place] [address] PATHOLOGIST FLOOR CLEANER RIDGE HEURTA M.D. Performed By: #### C BC, CMP, LDLD, FE and TIBC, LIPID, URMA #### [address] Automated blood monocyte cou ntOrdered By: Carri Hinds on 09-16-2023 Monocytes (Bld) [#/Vol] 0.9 10*3/uL High 0.0-0.[address] [facility] Comment on above: Performed By: #### C BC, CMP, LDLD, FE and TIBC, LIPID, URMA #### [address] Automated eosinophil %Ordere d By: Carri Hinds on 09-16-2023 Eosinophils/100 WBC (Bld) 0.5 % Normal . [facility] Comment on above: Performed By: #### C BC, CMP, LDLD, FE and TIBC, LIPID, URMA #### [address] Automated eosinophil countOr dered By: Carri Hinds on 09-16-2023 Eosinophils (Bld) [#/Vol] 0.1 10*3/uL Normal 0.0-0.[address] [facility] Comment on above: Performed By: #### C BC, CMP, LDLD, FE and TIBC, LIPID, URMA #### [facility] [address] Automated monocyte %Ordered By: Carri Hinds on 09-16-2023 Monocytes/100 WBC (Bld) 7.5 % Normal . [facility] Comment on above: Performed By: #### C BC, CMP, LDLD, FE and TIBC, LIPID, URMA #### [facility] [address] Automated neutrophil %Ordere d By: Carri Hinds on 09-16-2023 Neutrophils/100 WBC (Bld) 66.5 % Normal . [facility] Comment on above: Performed By: #### C BC, CMP, LDLD, FE and TIBC, LIPID, URMA #### [address] Basic Metabolic Panelon 09-03 GFR/1.73 sq M.predicted MDRD (S/P/Bld) [Vol rate/Area] mL/min/{1.73_m2} Normal [facility] Comment on above: Performed By: #### C BC, CMP, LDLD, FE and TIBC, LIPID, URMA #### [address] Calcium [Mass/volume] in Ser um or PlasmaOrdered By: Carri Hinds on 09-16-2023 Calcium [Mass/Vol] 9.3 mg/dL Normal 8.6-10.3 [facility] Comment on above: Result Comment: PERF ORMED BY: [place] [address] PATHOLOGIST FLOOR CLEANER RIDGE HUERTA M.D. Performed By: #### C BC, CMP, LDLD, FE and TIBC, LIPID, URMA #### [address] Carbon dioxide, total [Moles /volume] in Serum or PlasmaOrdered By: Carri Hinds on 09-16-2023 CO2 [Moles/Vol] 25.5 mmol/L Normal 21.0-31.0 [facility] Comment on above: Performed By: #### C BC, CMP, LDLD, FE and TIBC, LIPID, URMA #### [facility] [address] Chloride [Moles/volume] in S alissa or PlasmaOrdered By: Carri Hinds on 09-16-2023 Chloride [Moles/Vol] 99 mmol/L Normal 98-107 [facility] Comment on above: Performed By: #### C BC, CMP, LDLD, FE and TIBC, LIPID, URMA #### [facility] [address] Complete Blood Count Auto Di ffon 09-16-2023 Mean Corpuscular HGB Conc 33.5 g/dL Normal 32.0-35.0 [facility] Comment on above: Performed By: #### C BC, CMP, LDLD, FE and TIBC, LIPID, URMA #### [facility] [address] NRBC% 0.1 /100{WBC} Normal 0-0.5 [facility] Comment on above: Performed By: #### C BC, CMP, LDLD, FE and TIBC, LIPID, URMA #### [facility] [address] Creatinine [Mass/volume] in Serum or PlasmaOrdered By: Carri Hinds on 09-16-2023 Creatinine [Mass/Vol] 0.68 mg/dL Normal 0.60-1.20 [facility] Comment on above: Performed By: #### C BC, CMP, LDLD, FE and TIBC, LIPID, URMA #### [facility] [address] Erythrocyte distribution wid th [Ratio] by Automated countOrdered By: Carri Hinds on 09-16-2023 Erythrocyte distribution width (RBC) [Ratio] 13.3 % Normal 11.9-15.[address] [facility] Comment on above: Performed By: #### C BC, CMP, LDLD, FE and TIBC, LIPID, URMA #### [facility] [address] [place] [address] [place] Erythrocytes [#/volume] in B lood by Automated countOrdered By: Carri Hinds on 09-16-2023 RBC (Bld) [#/Vol] 4.31 10*6/uL Normal 3.60-5.00 [facility] Comment on above: Performed By: #### C BC, CMP, LDLD, FE and TIBC, LIPID, URMA #### [facility] [address] [place] [address] [place] Glucose [Mass/volume] in Ser um or PlasmaOrdered By: Carri Hinds on 09-16-2023 Glucose [Mass/Vol] 355 mg/dL High 70-100 [facility] Comment on above: ADA recommended refe rence rangeRandom Glucose Reference Range is dependent on time and content of last meal. Glucose of more than 200 mg/dL in a nonstressed, ambulatory subject supports the diagnosis of Diabetes Mellitus. Result Comment: [place] Glucose Reference Range is dependent on time and content of last meal. Glucose of more than 200 mg/dL in a nonstressed, ambulatory subject supports the diagnosis of Diabetes Mellitus. ADA recommended reference range Performed By: #### C BC, CMP, LDLD, FE and TIBC, LIPID, URMA #### [facility] [address] [place] [address] [place] Hematocrit [Volume Fraction] of Blood by Automated countOrdered By: Carri Hinds on 09-16-2023 Hematocrit (Bld) [Volume fraction] 38.3 % Normal 34.0-46.[address] [facility] Comment on above: Performed By: #### C BC, CMP, LDLD, FE and TIBC, LIPID, URMA #### [facility] [address] [place] [address] [place] Hemoglobin [Mass/volume] in BloodOrdered By: Carri Hinds on 09-16-2023 Hemoglobin (Bld) [Mass/Vol] 12.8 g/dL Normal 11.8-15.[address] [facility] Comment on above: Performed By: #### C BC, CMP, LDLD, FE and TIBC, LIPID, URMA #### [facility] [address] Leukocytes [#/volume] correc cherie for nucleated erythrocytes in Blood by Automated counOrdered By: Carri Hinds on 09-16-2023 WBC corrected for nucl RBC Auto (Bld) [#/Vol] 12.5 10*3/uL 3.8-11.[address] [facility] Leukocytes [#/volume] in Blo od by Automated countOrdered By: Carri Hinds on 09-16-2023 WBC (Bld) [#/Vol] 12.5 10*3/uL High 3.8-11.6 [facility] Comment on above: Performed By: #### C BC, CMP, LDLD, FE and TIBC, LIPID, URMA #### [facility] [address] [place] [address] Lymphocytes [#/volume] in Bl ood by Automated countOrdered By: Carri Hinds on 09-16-2023 Lymphocytes (Bld) [#/Vol] 3.1 10*3/uL Normal 1.00-4.[address] [facility] Comment on above: Performed By: #### C BC, CMP, LDLD, FE and TIBC, LIPID, URMA #### [facility] [address] Lymphocytes/100 leukocytes i n Blood by Automated countOrdered By: Carri Hinds on 09-16-2023 Lymphocytes/100 WBC (Bld) 24.9 % Normal . [facility] Comment on above: Performed By: #### C BC, CMP, LDLD, FE and TIBC, LIPID, URMA #### [facility] [address] MCH [Entitic mass] by Automa cherie countOrdered By: Carri Hinds on 09-16-2023 MCH (RBC) [Entitic mass] 29.7 pg Normal 24.7-34.[address] [facility] Comment on above: Performed By: #### C BC, CMP, LDLD, FE and TIBC, LIPID, URMA #### [facility] [address] MCHC Auto (RBC) [Mass/Vol]Or dered By: Carri Hinds on 09-16-2023 MCHC (RBC) [Mass/Vol] 33.5 g/dL 32.0-35.0 [facility] MCV [Entitic volume] by Auto mated countOrdered By: Carri Hinds on 09-16-2023 MCV (RBC) [Entitic vol] 88.8 fL Normal 80-100 [facility] Comment on above: Performed By: #### C BC, CMP, LDLD, FE and TIBC, LIPID, URMA #### [facility] [address] Neutrophils [#/volume] in Bl ood by Automated countOrdered By: Carri Hinds on 09-16-2023 Neutrophils (Bld) [#/Vol] 8.3 10*3/uL High 1.8-7.[address] [facility] Comment on above: Performed By: #### C BC, CMP, LDLD, FE and TIBC, LIPID, URMA #### [facility] [address] [place] [address] No Panel InformationOrdered By: Carri Hinds on 09-16-2023 Estimated GFR (CKD-EPI) > 60.0 mL/Min [facility] Creatinine Clearance (Chem N/A [facility] Nucleated erythrocytes [Pres ence] in Blood by Automated countOrdered By: Carri Hinds on 09-16-2023 Nucleated RBC Auto Ql (Bld) 0.1 /100{WBC} 0-0.[address] [facility] PST Type and Screenon 2022 ABO and Rh group Nom (Bld) Blood group A Rh(D) positive Normal [facility] Comment on above: Order Comment: Reaso n for Exam Type 2 diabetes mellitus without complication, without long- Result Comment: PERF ORMED BY: [place] [address] PATHOLOGIST FLOOR CLEANER RIDGE HUERTA M.D. Platelet mean volume [Entiti c volume] in Blood by Automated countOrdered By: Carri Hinds on 09-16-2023 Platelet mean volume (Bld) [Entitic vol] 8.2 fL Normal 6.3-10.[address] [facility] Comment on above: Performed By: #### C BC, CMP, LDLD, FE and TIBC, LIPID, URMA #### [facility] [address] Platelets [#/volume] in Bloo d by Automated countOrdered By: Carri Hinds on 09-16-2023 Platelets (Bld) [#/Vol] 305 10*3/uL Normal 150-[address] [facility] Comment on above: Performed By: #### C BC, CMP, LDLD, FE and TIBC, LIPID, URMA #### [facility] [address] Potassium [Moles/volume] in Serum or PlasmaOrdered By: Carri Hinds on 09-16-2023 Potassium [Moles/Vol] 5.0 mmol/L Normal 3.5-5.1 [facility] Comment on above: Performed By: #### C BC, CMP, LDLD, FE and TIBC, LIPID, URMA #### [facility] [address] Serum or plasma anion gap de terminationOrdered By: Carri Hinds on 09-16-2023 Anion gap [Moles/Vol] 14.5 mmol/L Normal 6.0-15.0 [facility] Comment on above: Performed By: #### C BC, CMP, LDLD, FE and TIBC, LIPID, URMA #### [facility] [address] [place] [address] [place] Sodium [Moles/volume] in Ser um or PlasmaOrdered By: Carri Hinds on 09-16-2023 Sodium [Moles/Vol] 134 mmol/L Low 136-145 [facility] Comment on above: Performed By: #### C BC, CMP, LDLD, FE and TIBC, LIPID, URMA #### [facility] [address] Urea nitrogen [Mass/volume] in Serum or PlasmaOrdered By: Carri Hinds on 09-16-2023 Urea nitrogen [Mass/Vol] 13 mg/dL Normal 7-[address] [facility] Comment on above: Performed By: #### C BC, CMP, LDLD, FE and TIBC, LIPID, URMA #### [address] ABO/Rh Retypeon 07-13-2023 ABO/RH Recheck Result Positive Normal [facility] Comment on above: Result Comment: PERF ORMED BY: [place] [address] PATHOLOGIST FLOOR CLEANER RIDGE HUERTA M.D. Capillary blood glucose ashwini urement by glucometer (mass/volume)Ordered By: Carri Hinds on 07-13-2023 Glucose [Mass/Vol] 119 mg/dL Normal [facility] Comment on above: Random Glucose Refer ence Range is dependent on time and content of last meal. Glucose of more than 200 mg/dL in a nonstressed, ambulatory subject supports the diagnosis of Diabetes Mellitus. Result Comment: [place] Glucose Reference Range is dependent on time and content of last meal. Glucose of more than 200 mg/dL in a nonstressed, ambulatory subject supports the diagnosis of Diabetes Mellitus. PERFORMED BY: [place] [address] PATHOLOGIST FLOOR CLEANER RIDGE HUERTA M.D. Performed By: #### G LULS ####Point of Care testing, Glucose Poct Glucometerson 1 Commemt1 Glu2: Cleaned Meter Normal [facility] Comment on above: Result Comment: PERF ORMED BY: [place] [address] PATHOLOGIST FLOOR CLEANER RIDGE HUERTA M.D. Performed By: #### G LULS ####Point of Care testing, Glucose [Mass/Vol] 133 mg/dL Normal [facility] Comment on above: Result Comment: [place] Glucose Reference Range is dependent on time and content of last meal. Glucose of more than 200 mg/dL in a nonstressed, ambulatory subject supports the diagnosis of Diabetes Mellitus. Performed By: #### G LULS ####Point of Care testing, HCG ( test) Funmi jackson Ql (U)Ordered By: Julio Monroe on 07-13-2023 HCG ( test) Ql (U) Negative [facility] HCG,Urineon 07-13-2023 Beta HCG ( test) Ql (U) Negative Normal [facility] Comment on above: Result Comment: PERF ORMED BY: [facility] [address] [place] [address] PATHOLOGIST FLOOR CLEANER RIDGE HUERTA M.D. Performed By: #### C BC, CMP, LDLD, FE and TIBC, LIPID, URMA #### [facility] [address] 07-13-2023 L ------- Specimen: [id number] Received: 07/13/23 Status: BLUE Neal Num: [id number] Spec Type: Surgical Subm Dr: Carri Hinds DO Tissues: A Endometrium - Curettings (EMC) Procedures: GAVIN/Marely, Gross/Micro L4 Age/ Patient Sex Location Account Attending Physician Rachel Mcgarry 43/F OR [id number] Carri Hinds DO SPEC NUM: [id number] RECD: 07/13/23 STATUS: BLUE VAL NUM: [id number] JOSEPH: 07/13/23- SUBM DR: Carri Hinds DO ENTERED: 07/13/23-[address]: HALLEY TYPE: Surgical DEPT: S [...] submitted in one cassette labeled A1. Specimen: [id number] Received: 07/13/23 Status: BLUE Neal Num: [id number] Spec Type: Surgical Subm Dr: Carri Hinds DO Tissues: A Endometrium - Curettings (EMC) Procedures: Vik BANSAL/Micro L4 Patient: Rachel Mcgarry [id number] (Continued) Specimen: [id number] Received: 07/13/23 (Continued) Signed (signature on file) Philomena Grimm MD 07/14/23 1608 Specimen: [id number] Received: 07/13/23 Status: BLUE Neal Num: [id number] Spec Type: Surgical Subm Dr: Carri Hinds DO Tissues: A Endometrium - Curettings (EMC) Procedures: Vik BANSAL/Micro L4 Patient: Rachel Mcgarry [id number] (Continued) Specimen: [id number] Received: 07/13/23 (Continued) Microscopic Description Two H E slides reviewed. The microscopic examination confirms the diagnosis. CPT Codes 58146 Specimen: [id number] Received: 07/13/23 Status: BLUE Neal Num: [id number] Spec Type: Surgical Subm Dr: Carri Hinds DO Tissues: A Endometrium - Curettings (EMC) Procedures: HE/2, Gross/Micro L4 Patient: Rachel Mcgarry Tyron [id number] (Continued) Signed (signature on file) [facility] Grimm MD 07/14/23 1609 Normal [facility] No Panel InformationOrdered By: Carri Hinds on 07-13-2023 Bedside Glucose Comment Glu2: cleaned meter [facility] Basophils Auto (Bld) [#/Vol] Ordered By: Carri Hinds on 06-30-2023 Basophils (Bld) [#/Vol] 0.1 10*3/uL 0.0-0.[address] [facility] Basophils/100 WBC Auto (Bld) Ordered By: Carri Hinds on 06-30-2023 Basophils/100 WBC (Bld) 0.7 % . [facility] Calcium [Mass/volume] in Ser um or PlasmaOrdered By: Carri Hinds on 06-30-2023 Calcium [Mass/Vol] 9.2 mg/dL 8.6-10.3 [facility] Carbon dioxide, total [Moles /volume] in Serum or PlasmaOrdered By: Carri Hinds on 06-30-2023 CO2 [Moles/Vol] 26.7 mmol/L 21.0-31.0 [facility] Chloride [Moles/volume] in S alissa or PlasmaOrdered By: Carri Hinds on 06-30-2023 Chloride [Moles/Vol] 100 mmol/L 98-107 [facility] Creatinine [Mass/volume] in Serum or PlasmaOrdered By: Carri Hinds on 06-30-2023 Creatinine [Mass/Vol] 0.54 mg/dL 0.60-1.20 [facility] Eosinophils Auto (Bld) [#/Vo l]Ordered By: Carri Hinds on 06-30-2023 Eosinophils (Bld) [#/Vol] 0.1 10*3/uL 0.0-0.[address] [facility] Eosinophils/100 WBC Auto (Bl d)Ordered By: Carri Hinds on 06-30-2023 Eosinophils/100 WBC (Bld) 0.4 % . [facility] Erythrocyte distribution wid th Auto (RBC) [Ratio]Ordered By: Carri Hinds on 06-30-2023 Erythrocyte distribution width (RBC) [Ratio] 13.3 % 11.9-15.[address] [facility] Glucose [Mass/volume] in Ser um or PlasmaOrdered By: Carri Hinds on 06-30-2023 Glucose [Mass/Vol] 134 mg/dL 70-100 [facility] Comment on above: ADA recommended refe rence rangeRandom Glucose Reference Range is dependent on time and content of last meal. Glucose of more than 200 mg/dL in a nonstressed, ambulatory subject supports the diagnosis of Diabetes Mellitus. Hematocrit Auto (Bld) [Volum e fraction]Ordered By: Carri Hinds on 06-30-2023 Hematocrit (Bld) [Volume fraction] 38.9 % 34.0-46.[address] [facility] Hemoglobin [Mass/volume] in BloodOrdered By: Carri Hnids on 06-30-2023 Hemoglobin (Bld) [Mass/Vol] 13.0 g/dL 11.8-15.[address] [facility] Leukocytes [#/volume] correc cherie for nucleated erythrocytes in Blood by Automated counOrdered By: Carri Hinds on 06-30-2023 WBC corrected for nucl RBC Auto (Bld) [#/Vol] 15.4 10*3/uL 3.8-11.[address] [facility] Lymphocytes Auto (Bld) [#/Vo l]Ordered By: Carri Hinds on 06-30-2023 Lymphocytes (Bld) [#/Vol] 4.3 10*3/uL 1.00-4.[address] [facility] Lymphocytes/100 WBC Auto (Bl d)Ordered By: Carri Hinds on 06-30-2023 Lymphocytes/100 WBC (Bld) 27.8 % . [facility] MCH Auto (RBC) [Entitic mass ]Ordered By: Carri Hinds on 06-30-2023 MCH (RBC) [Entitic mass] 30.0 pg 24.7-34.[address] [facility] MCHC Auto (RBC) [Mass/Vol]Or dered By: Carri Hinds on 06-30-2023 MCHC (RBC) [Mass/Vol] 33.5 g/dL 32.0-35.0 [facility] MCV Auto (RBC) [Entitic vol] Ordered By: Carri Hinds on 06-30-2023 MCV (RBC) [Entitic vol] 89.6 fL 80-100 [facility] Monocytes Auto (Bld) [#/Vol] Ordered By: Carri Hinds on 06-30-2023 Monocytes (Bld) [#/Vol] 1.2 10*3/uL 0.0-0.[address] [facility] Monocytes/100 WBC Auto (Bld) Ordered By: Carri Hinds on 06-30-2023 Monocytes/100 WBC (Bld) 7.5 % . [facility] Neutrophils Auto (Bld) [#/Vo l]Ordered By: Carri Hinds on 06-30-2023 Neutrophils (Bld) [#/Vol] 9.8 10*3/uL 1.8-7.[address] [facility] Neutrophils/100 WBC Auto (Bl d)Ordered By: Carri Hinds on 06-30-2023 Neutrophils/100 WBC (Bld) 63.6 % . [facility] No Panel InformationOrdered By: Carri Hinds on 06-30-2023 Estimated GFR (CKD-EPI) > 60.0 mL/Min [facility] Creatinine Clearance (Chem N/A [facility] Nucleated erythrocytes [Pres ence] in Blood by Automated countOrdered By: Carri Hinds on 06-30-2023 Nucleated RBC Auto Ql (Bld) 0.0 /100{WBC} 0-0.[address] [facility] Platelet mean volume Auto (B ld) [Entitic vol]Ordered By: Carri Hinds on 06-30-2023 Platelet mean volume (Bld) [Entitic vol] 7.9 fL 6.3-10.[address] [facility] Platelets Auto (Bld) [#/Vol] Ordered By: Carri Hinds on 06-30-2023 Platelets (Bld) [#/Vol] 275 10*3/uL 150-[address] [facility] Potassium [Moles/volume] in Serum or PlasmaOrdered By: Carri Hinds on 06-30-2023 Potassium [Moles/Vol] 4.3 mmol/L 3.5-5.1 [facility] RBC Auto (Bld) [#/Vol]Ordere d By: Carri Hinds on 06-30-2023 RBC (Bld) [#/Vol] 4.34 10*6/uL 3.60-5.00 [facility] Serum or plasma anion gap de terminationOrdered By: Carri Hinds on 06-30-2023 Anion gap [Moles/Vol] 14.6 mmol/L 6.0-15.0 [facility] Sodium [Moles/volume] in Ser um or PlasmaOrdered By: Carri Hinds on 06-30-2023 Sodium [Moles/Vol] 137 mmol/L 136-145 [facility] Urea nitrogen [Mass/volume] in Serum or PlasmaOrdered By: Carri Hinds on 06-30-2023 Urea nitrogen [Mass/Vol] 11 mg/dL 7- [facility] WBC Auto (Bld) [#/Vol]Ordere d By: Carri Hinds on 06-30-2023 WBC (Bld) [#/Vol] 15.4 10*3/uL 3.8-11.6 [facility] HCG ( test) IAanil d Ql (U)Ordered By: Kyler Miramontes on 05-05-2023 HCG ( test) Ql (U) Negative [facility] Alanine aminotransferase [En zymatic activity/volume] in Serum or PlasmaOrdered By: Ajit Pettit on 05-04-2023 ALT [Catalytic activity/Vol] 17 U/L [address] [facility] Albumin [Mass/volume] in Ser um or Plasma by Bromocresol green (BCG) dye binding methoOrdered By: Ajit Pettit on 05-04-2023 Albumin BCG dye [Mass/Vol] 4.4 g/dL 3.5-5.[address] [facility] Alkaline phosphatase [Enzyma tic activity/volume] in Serum or PlasmaOrdered By: Ajit Millanc on 05-04-2023 ALP [Catalytic activity/Vol] 55 U/L 34-[address] [facility] Aspartate aminotransferase [ Enzymatic activity/volume] in Serum or PlasmaOrdered By: Ajit Millanc on 05-04-2023 AST [Catalytic activity/Vol] 18 U/L 13-[address] [facility] Basophils Auto (Bld) [#/Vol] Ordered By: Ajit Millanc on 05-04-2023 Basophils (Bld) [#/Vol] 0.1 10*3/uL 0.0-0.[address] [facility] Basophils/100 WBC Auto (Bld) Ordered By: Ajit Pettit on 05-04-2023 Basophils/100 WBC (Bld) 0.9 % . [facility] Bilirubin.total [Mass/volume ] in Serum or PlasmaOrdered By: Ajit Pettit on 05-04-2023 Bilirubin [Mass/Vol] 0.3 mg/dL 0.3-1.0 [facility] Calcium [Mass/volume] in Ser um or PlasmaOrdered By: Ajit Pettit on 05-04-2023 Calcium [Mass/Vol] 9.6 mg/dL 8.6-10.3 [facility] Carbon dioxide, total [Moles /volume] in Serum or PlasmaOrdered By: Ajit Millanc on 05-04-2023 CO2 [Moles/Vol] 28.5 mmol/L 21.0-31.0 [facility] Chloride [Moles/volume] in S alissa or PlasmaOrdered By: Ajit Lariossic on 05-04-2023 Chloride [Moles/Vol] 100 mmol/L 98-107 [facility] Cholesterol [Mass/volume] in Serum or PlasmaOrdered By: Ajit Pettit on 05-04-2023 Cholesterol [Mass/Vol] 180 mg/dL 140-200 [facility] Comment on above: Chol less than 200 m g/dl low riskChol 201-239 mg/dl borderline riskChol 240 mg/dl and greater high risk Cholesterol in LDL Calc [Mas s/Vol]Ordered By: Ajit Pettit on 05-04-2023 Cholesterol in LDL [Mass/Vol] 81 mg/dL 0-[address] [facility] Comment on above: LDL ATP III CLASSIFI CATIONLDL less than 100 mg/dL OptimalLDL 100-129 mg/dL Near or above optimalLDL 130-159 mg/dL Borderline highLDL 160-189 mg/dL HighLDL greater than 189 mg/dL Very high Cholesterol in VLDL Calc [Ma ss/Vol]Ordered By: Ajit Pettit on 05-04-2023 Cholesterol in VLDL [Mass/Vol] 46 mg/dL [facility] Creatinine [Mass/volume] in Serum or PlasmaOrdered By: Ajit Pettit on 05-04-2023 Creatinine [Mass/Vol] 0.65 mg/dL 0.60-1.20 [facility] Eosinophils Auto (Bld) [#/Vo l]Ordered By: Ajit Pettit on 05-04-2023 Eosinophils (Bld) [#/Vol] 0.1 10*3/uL 0.0-0.[address] [facility] Eosinophils/100 WBC Auto (Bl d)Ordered By: Ajit Pettit on 05-04-2023 Eosinophils/100 WBC (Bld) 0.5 % . [facility] Erythrocyte distribution wid th Auto (RBC) [Ratio]Ordered By: Ajit Pettit on 05-04-2023 Erythrocyte distribution width (RBC) [Ratio] 13.4 % 11.9-15.[address] [facility] Ferritin [Mass/volume] in Se rum or PlasmaOrdered By: Ajit Pettit on 05-04-2023 Ferritin [Mass/Vol] 90.4 ng/mL 11.0-306.8 [facility] Globulin Calc (S) [Mass/Vol] Ordered By: Ajit Pettit on 05-04-2023 Globulin (S) [Mass/Vol] 2.3 g/dL [facility] Glucose [Mass/volume] in Ser um or PlasmaOrdered By: Ajit Pettit on 05-04-2023 Glucose [Mass/Vol] 124 mg/dL 70-100 [facility] Comment on above: ADA recommended refe rence rangeRandom Glucose Reference Range is dependent on time and content of last meal. Glucose of more than 200 mg/dL in a nonstressed, ambulatory subject supports the diagnosis of Diabetes Mellitus. Hematocrit Auto (Bld) [Volum e fraction]Ordered By: Ajit Pettit on 05-04-2023 Hematocrit (Bld) [Volume fraction] 41.7 % 34.0-46.[address] [facility] Hemoglobin [Mass/volume] in BloodOrdered By: Ajit Pettit on 05-04-2023 Hemoglobin (Bld) [Mass/Vol] 14.0 g/dL 11.8-15.[address] [facility] Iron [Mass/volume] in Serum or PlasmaOrdered By: Ajit Pettit on 05-04-2023 Iron [Mass/Vol] 95 ug/dL 50-[address] [facility] Iron binding capacity [Mass/ volume] in Serum or PlasmaOrdered By: Ajit Pettit on 05-04-2023 Iron binding capacity [Mass/Vol] 476 ug/dL 255-[address] [facility] Iron saturation [Mass Fracti on] in Serum or PlasmaOrdered By: Ajit Pettit on 05-04-2023 Iron saturation [Mass fraction] 20.0 % 20-[address] [facility] Leukocytes [#/volume] correc cherie for nucleated erythrocytes in Blood by Automated counOrdered By: Ajit Pettit on 05-04-2023 WBC corrected for nucl RBC Auto (Bld) [#/Vol] 14.4 10*3/uL 3.8-11.[address] [facility] Lymphocytes Auto (Bld) [#/Vo l]Ordered By: Ajit Pettit on 05-04-2023 Lymphocytes (Bld) [#/Vol] 3.2 10*3/uL 1.00-4.[address] [facility] Lymphocytes/100 WBC Auto (Bl d)Ordered By: Ajit Pettit on 05-04-2023 Lymphocytes/100 WBC (Bld) 22.3 % . [facility] MCH Auto (RBC) [Entitic mass ]Ordered By: Ajit Pettit on 05-04-2023 MCH (RBC) [Entitic mass] 29.8 pg 24.7-34.[address] [facility] MCHC Auto (RBC) [Mass/Vol]Or dered By: Ajit Pettit on 05-04-2023 MCHC (RBC) [Mass/Vol] 33.5 g/dL 32.0-35.0 [facility] MCV Auto (RBC) [Entitic vol] Ordered By: Ajit Pettit on 05-04-2023 MCV (RBC) [Entitic vol] 89.1 fL 80-100 [facility] Monocytes Auto (Bld) [#/Vol] Ordered By: Ajit Pettit on 05-04-2023 Monocytes (Bld) [#/Vol] 0.9 10*3/uL 0.0-0.[address] [facility] Monocytes/100 WBC Auto (Bld) Ordered By: Ajit Pettit on 05-04-2023 Monocytes/100 WBC (Bld) 6.3 % . [facility] Neutrophils Auto (Bld) [#/Vo l]Ordered By: Ajit Pettit on 05-04-2023 Neutrophils (Bld) [#/Vol] 10.1 10*3/uL 1.8-7.[address] [facility] Neutrophils/100 WBC Auto (Bl d)Ordered By: Ajit Pettit on 05-04-2023 Neutrophils/100 WBC (Bld) 70.0 % . [facility] No Panel InformationOrdered By: Ajit Pettit on 05-04-2023 Estimated GFR (CKD-EPI) > 60.0 mL/Min [facility] Creatinine Clearance (Chem N/A [facility] Nucleated erythrocytes [Pres ence] in Blood by Automated countOrdered By: Ajit Pettit on 05-04-2023 Nucleated RBC Auto Ql (Bld) 0.1 /100{WBC} 0-0.[address] [facility] Platelet mean volume Auto (B ld) [Entitic vol]Ordered By: Ajit Pettit on 05-04-2023 Platelet mean volume (Bld) [Entitic vol] 8.4 fL 6.3-10.[address] [facility] Platelets Auto (Bld) [#/Vol] Ordered By: Ajit Pettit on 05-04-2023 Platelets (Bld) [#/Vol] 328 10*3/uL 150-[address] [facility] Potassium [Moles/volume] in Serum or PlasmaOrdered By: Ajit Pettit on 05-04-2023 Potassium [Moles/Vol] 5.3 mmol/L 3.5-5.1 [facility] Protein [Mass/volume] in Ser um or PlasmaOrdered By: Ajit Pettit on 05-04-2023 Protein [Mass/Vol] 6.7 g/dL 6.4-8.9 [facility] RBC Auto (Bld) [#/Vol]Ordere d By: Ajit Pettit on 05-04-2023 RBC (Bld) [#/Vol] 4.68 10*6/uL 3.60-5.00 [facility] Serum or plasma albumin/glob ulin mass ratioOrdered By: Ajit Pettit on 05-04-2023 Albumin/Globulin [Mass ratio] 1.9 {ratio} [facility] Serum or plasma anion gap de terminationOrdered By: Ajit Pettit on 05-04-2023 Anion gap [Moles/Vol] 11.8 mmol/L 6.0-15.0 [facility] Serum or plasma high density lipoprotein (HDL) cholesterol measurementOrdered By: Ajit Pettit on 05-04-2023 Cholesterol in HDL [Mass/Vol] 52 mg/dL 23-[address] [facility] Comment on above: HDL CHOL ATP-III CLA SSIFICATION Cardiovascular RiskHDL > or equal to 60 mg/dL LOWHDL < 40 mg/dL HIGH Serum or plasma total choles terol/high density lipoprotein (HDL) cholesterol mass ratOrdered By: Ajit Pettit on 05-04-2023 Cholesterol.total/Suellen sterol in HDL [Mass ratio] 3.5 {ratio} <5.[address] [facility] Sodium [Moles/volume] in Ser um or PlasmaOrdered By: Ajit Pettit on 05-04-2023 Sodium [Moles/Vol] 135 mmol/L 136-145 [facility] Thyrotropin [Units/volume] i n Serum or PlasmaOrdered By: Ajit Pettit on 05-04-2023 TSH Qn 1.97 m[IU]/L 0.45-5.[address] [facility] Transferrin [Mass/volume] in Serum or PlasmaOrdered By: Ajit Pettit on 05-04-2023 Transferrin [Mass/Vol] 340 mg/dL 203-362 [facility] Triglyceride [Mass/volume] i n Serum or PlasmaOrdered By: Ajit Pettit on 05-04-2023 Triglyceride [Mass/Vol] 233 mg/dL 0-149 [facility] Comment on above: TRIG ATP III CLASSIF ICATIONTRIG less than 150 mg/dL NormalTRIG 150-199 mg/dL Borderline highTRIG 200-500 mg/dL High TRIG greater than 500 mg/dL Very highStandard traceable to the Center for Disease Conrtrol and Prevention (CDC) test method. Urea nitrogen [Mass/volume] in Serum or PlasmaOrdered By: Ajit Pettit on 05-04-2023 Urea nitrogen [Mass/Vol] 9 mg/dL 7-[address] [facility] Urine culture routineOrdered By: Ajit Pettit on 05-04-2023 Bacteria identified Cx Nom (U) Strep. agalactiae Grp B [facility] WBC Auto (Bld) [#/Vol]Ordere d By: Ajit Pettit on 05-04-2023 WBC (Bld) [#/Vol] 14.4 10*3/uL 3.8-11.6 [facility] HCG ( test) IA.rapi d Ql (U)Ordered By: Kyler Miramontes on 04-14-2023 HCG ( test) Ql (U) Negative [facility] CBC AUTO DIFFon 02-15-2023 BASO # 0.1 103/ul Normal 0.0-0.1 [facility] Comment on above: Performed By: #### C BC #### [facility] [address] [address] [address] Vito Grimm Basophils/100 WBC (Bld) 0.5 % Normal 0.2-2.0 [facility] Comment on above: Performed By: #### C BC #### [facility] [address] [place] [address] Dr. Vito Grimm EO # 0.1 103/ul Normal 0.0-0.7 [facility] Comment on above: Performed By: #### C BC #### [facility] [address] [place] [address] Dr. Vito Grimm Eosinophils/100 WBC (Bld) 0.8 % Critically low 0.9-7.0 [facility] Comment on above: Performed By: #### C BC #### [facility] [address] [place] [address] Dr. Vito Grimm Erythrocyte distribution width (RBC) [Ratio] 13.1 % Normal 11.0-15.0 [facility] Comment on above: Performed By: #### C BC #### [facility] [address] [place] [address] Dr. Vito Grimm Hematocrit (Bld) [Volume fraction] 41.2 % Normal 36.0-48.0 [facility] Comment on above: Performed By: #### C BC #### [facility] [address] [place] [address] Dr. Vito Grimm Hemoglobin (Bld) [Mass/Vol] 13.4 g/dL Normal 12.0-16.0 [facility] Comment on above: Performed By: #### C BC #### [facility] [address] [place] [address] Dr. Vito Grimm IG # 0.05 10e3/ul Critically high 0.00-0.03 [facility] Comment on above: Performed By: #### C BC #### [facility] [address] [place] [address] Dr. Vito Grimm IG % 0.4 % Normal 0.0-0.5 [facility] Comment on above: Performed By: #### C BC #### [facility] [address] [place] [address] Dr. Vito Grimm LYMPH # 4.8 103/ul Critically high 1.2-3.8 [facility] Comment on above: Performed By: #### C BC #### [facility] [address] [address] [address] Vito Grimm Lymphocytes/100 WBC (Bld) 38.8 % Normal 20.5-60.0 [facility] Comment on above: Performed By: #### C BC #### [facility] [address] [place] [address] Dr. Vito Grimm MANUAL DIFF REQ NO Normal [facility] Comment on above: Performed By: #### C BC #### [facility] [address] [place] [address] Dr. Vito Grimm MCH (RBC) [Entitic mass] 29.9 pg Normal 26.7-34.0 [facility] Comment on above: Performed By: #### C BC #### [facility] [address] [place] [address] Dr. Vito Grimm MCHC (RBC) [Mass/Vol] 32.5 g/dL Normal 29.9-35.2 [facility] Comment on above: Performed By: #### C BC #### [facility] [address] [place] [address] Dr. Vito Grimm MCV (RBC) [Entitic vol] 92.0 fL Normal 81.0-99.0 [facility] Comment on above: Performed By: #### C BC #### [facility] [address] [place] [address] Dr. Vito Grimm MONO # 0.9 103/ul Critically high 0.3-0.8 [facility] Comment on above: Performed By: #### C BC #### [facility] [address] [place] [address] Dr. Vito Grimm Monocytes/100 WBC (Bld) 7.4 % Normal 1.7-12.0 [facility] Comment on above: Performed By: #### C BC #### [facility] [address] [place] [address] Dr. Vito Grimm NEUT # 6.5 103/ul Normal 1.4-6.5 [facility] Comment on above: Performed By: #### C BC #### [facility] [address] [place] [address] Dr. Vito Grimm Neutrophils/100 WBC (Bld) 52.1 % Normal 43.0-75.0 [facility] Comment on above: Performed By: #### C BC #### [facility] [address] [place] [address] Dr. Vito Grimm Platelet mean volume (Bld) [Entitic vol] 10.0 fL Normal 9.5-13.5 [facility] Comment on above: Performed By: #### C BC #### [facility] [address] [place] [address] Dr. Vito Grimm PLT 298 103/ul Normal 150-450 [facility] Comment on above: Performed By: #### C BC #### [facility] [address] [place] [address] Dr. Vito Grimm RBC 4.48 106/ul Normal 4.20-5.40 [facility] Comment on above: Performed By: #### C BC #### [facility] [address] [place] [address] Dr. Vito Grimm WBC 12.4 103/ul Critically high 4.0-11.0 [facility] Comment on above: Performed By: #### C BC #### [facility] [address] [place] [address] Dr. Vito Grimm DEPAKENE/ VALPROIC ACIDon DEPAKENE 49.4 ug/ml Critically low 50.0-100.0 [facility] Comment on above: Performed By: #### C MP, HSTROPN #### [facility] [address] [place] [address] Dr. Vito Grimm LACTATE/LACTIC ACIDon 2022 Lactate [Moles/Vol] 2.7 mmol/L Critically high 0.4-2.0 [facility] Comment on above: Performed By: #### L ACT #### [facility] [address] [place] [address] Dr. Vito Grimm PROF CHEM 8 (BAS METB)on Anion gap [Moles/Vol] 17.6 mmol/L Normal Th [facility] Comment on above: Performed By: #### B MP #### [facility] [address] [address] [address] Vito Grimm Calcium [Mass/Vol] 8.7 mg/dL Normal 8.5-10.1 [facility] Comment on above: Performed By: #### B MP #### [facility] [address] [address] [address] Vito Grimm Chloride [Moles/Vol] 99 mmol/L Normal 98-107 [facility] Comment on above: Performed By: #### B MP #### [facility] [address] [address] [address] Vito Grimm CO2 [Moles/Vol] 23.5 mmol/L Normal 21.0-32.0 [facility] Comment on above: Performed By: #### B MP #### [facility] [address] [place] [address] Dr. Vito Grimm Creatinine [Mass/Vol] 0.75 mg/dL Normal 0.55-1.02 [facility] Comment on above: Performed By: #### B MP #### [facility] [address] [place] [address] Dr. Vito Grimm EGFR-AF MALAGASY >60 Normal >=60 [facility] Comment on above: Performed By: #### B MP #### [facility] [address] [place] [address] Dr. Vito Grimm EGFR-NON AF MALAGASY >60 Normal >=60 [facility] Comment on above: Performed By: #### B MP #### [facility] [address] [place] [address] Dr. Vito Grimm Glucose [Mass/Vol] 273 mg/dL Critically high 74-106 [facility] Comment on above: Performed By: #### B MP #### [facility] [address] [place] [address] Dr. Vito Grimm Potassium [Moles/Vol] 4.1 mmol/L Normal 3.5-5.1 [facility] Comment on above: Performed By: #### B MP #### [facility] [address] [place], [place] [address] Dr. Vito Grimm Sodium [Moles/Vol] 136 mmol/L Normal 136-145 [facility] Comment on above: Performed By: #### B MP #### [facility] [address] [place], [place] [address] Dr. Vito Grimm Urea nitrogen [Mass/Vol] 6.0 mg/dL Critically low 7.0-18.0 [facility] Comment on above: Performed By: #### B MP #### [facility] [address] [place], [place] [address] Dr. Vito Grimm Urea nitrogen/Creatinine [Mass ratio] 8.0 mg/mg Normal [facility] Comment on above: Performed By: #### B MP #### [facility] [address] [address] [address] Vito Grimm Alanine aminotransferase [En zymatic activity/volume] in Serum or PlasmaOrdered By: Ajit Pettit on 02-09-2023 ALT [Catalytic activity/Vol] 29 U/L 7-[address] [facility] Albumin [Mass/volume] in Ser um or Plasma by Bromocresol green (BCG) dye binding methoOrdered By: Ajit Pettit on 02-09-2023 Albumin BCG dye [Mass/Vol] 4.4 g/dL 3.5-5.[address] [facility] Alkaline phosphatase [Enzyma tic activity/volume] in Serum or PlasmaOrdered By: Ajit Pettit on 02-09-2023 ALP [Catalytic activity/Vol] 72 U/L 34-[address] [facility] Aspartate aminotransferase [ Enzymatic activity/volume] in Serum or PlasmaOrdered By: Ajit Pettit on 02-09-2023 AST [Catalytic activity/Vol] 27 U/L 13-[address] [facility] Basophils Auto (Bld) [#/Vol] Ordered By: Ajit Pettit on 02-09-2023 Basophils (Bld) [#/Vol] 0.1 10*3/uL 0.0-0.[address] [facility] Basophils/100 WBC Auto (Bld) Ordered By: Ajit Pettit on 02-09-2023 Basophils/100 WBC (Bld) 0.6 % . [facility] Bilirubin.total [Mass/volume ] in Serum or PlasmaOrdered By: Ajit Pettit on 02-09-2023 Bilirubin [Mass/Vol] 0.3 mg/dL 0.3-1.0 [facility] Calcium [Mass/volume] in Ser um or PlasmaOrdered By: Ajit Pettit on 02-09-2023 Calcium [Mass/Vol] 9.3 mg/dL 8.6-10.3 [facility] Carbon dioxide, total [Moles /volume] in Serum or PlasmaOrdered By: Ajit Pettit on 02-09-2023 CO2 [Moles/Vol] 23.8 mmol/L 21.0-31.0 [facility] Chloride [Moles/volume] in S alissa or PlasmaOrdered By: Ajit Pettit on 02-09-2023 Chloride [Moles/Vol] 101 mmol/L 98-107 [facility] Cholesterol [Mass/volume] in Serum or PlasmaOrdered By: Ajit Pettit on 02-09-2023 Cholesterol [Mass/Vol] 166 mg/dL 140-200 [facility] Comment on above: Chol less than 200 m g/dl low riskChol 201-239 mg/dl borderline riskChol 240 mg/dl and greater high risk Cholesterol in LDL Calc [Mas s/Vol]Ordered By: Ajit Pettti on 02-09-2023 Cholesterol in LDL [Mass/Vol] TNP [facility] Comment on above: Test not performed Cholesterol in LDL [Mass/vol ume] in Serum or PlasmaOrdered By: Ajit Pettit on 02-09-2023 Cholesterol in LDL [Mass/Vol] 61 mg/dL 0-[address] [facility] Comment on above: LDL ATP III CLASSIFI CATIONLDL less than 100 mg/dL OptimalLDL 100-129 mg/dL Near or above optimalLDL 130-159 mg/dL Borderline highLDL 160-189 mg/dL HighLDL greater than 189 mg/dL Very high Cholesterol in VLDL Calc [Ma ss/Vol]Ordered By: Ajit Pettit on 02-09-2023 Cholesterol in VLDL [Mass/Vol] 97 mg/dL [facility] Creatinine [Mass/volume] in Serum or PlasmaOrdered By: Ajit Pettit on 02-09-2023 Creatinine [Mass/Vol] 0.75 mg/dL 0.60-1.20 [facility] Eosinophils Auto (Bld) [#/Vo l]Ordered By: Ajit Pettit on 02-09-2023 Eosinophils (Bld) [#/Vol] 0.1 10*3/uL 0.0-0.[address] [facility] Eosinophils/100 WBC Auto (Bl d)Ordered By: Ajit Pettit on 02-09-2023 Eosinophils/100 WBC (Bld) 0.7 % . [facility] Erythrocyte distribution wid th Auto (RBC) [Ratio]Ordered By: Ajit Pettit on 02-09-2023 Erythrocyte distribution width (RBC) [Ratio] 13.1 % 11.9-15.[address] [facility] Globulin Calc (S) [Mass/Vol] Ordered By: Ajit Pettit on 02-09-2023 Globulin (S) [Mass/Vol] 2.3 g/dL [facility] Glucose [Mass/volume] in Ser um or PlasmaOrdered By: Ajit Pettit on 02-09-2023 Glucose [Mass/Vol] 286 mg/dL 70-100 [facility] Comment on above: ADA recommended refe rence rangeRandom Glucose Reference Range is dependent on time and content of last meal. Glucose of more than 200 mg/dL in a nonstressed, ambulatory subject supports the diagnosis of Diabetes Mellitus. Hematocrit Auto (Bld) [Volum e fraction]Ordered By: Ajit Pettit on 02-09-2023 Hematocrit (Bld) [Volume fraction] 39.7 % 34.0-46.[address] [facility] Hemoglobin [Mass/volume] in BloodOrdered By: Ajit Pettit on 02-09-2023 Hemoglobin (Bld) [Mass/Vol] 13.1 g/dL 11.8-15.[address] [facility] Leukocytes [#/volume] correc cherie for nucleated erythrocytes in Blood by Automated counOrdered By: Ajit Pettit on 02-09-2023 WBC corrected for nucl RBC Auto (Bld) [#/Vol] 13.2 10*3/uL 3.8-11.[address] [facility] Lymphocytes Auto (Bld) [#/Vo l]Ordered By: Ajit Pettit on 02-09-2023 Lymphocytes (Bld) [#/Vol] 3.6 10*3/uL 1.00-4.[address] [facility] Lymphocytes/100 WBC Auto (Bl d)Ordered By: Ajit Pettit on 02-09-2023 Lymphocytes/100 WBC (Bld) 27.3 % . [facility] MCH Auto (RBC) [Entitic mass ]Ordered By: Ajit Pettit on 02-09-2023 MCH (RBC) [Entitic mass] 29.5 pg 24.7-34.[address] [facility] MCHC Auto (RBC) [Mass/Vol]Or dered By: Ajit Pettit on 02-09-2023 MCHC (RBC) [Mass/Vol] 33.1 g/dL 32.0-35.0 [facility] MCV Auto (RBC) [Entitic vol] Ordered By: Ajit Pettit on 02-09-2023 MCV (RBC) [Entitic vol] 89.3 fL 80-100 [facility] Monocytes Auto (Bld) [#/Vol] Ordered By: Ajit Millanc on 02-09-2023 Monocytes (Bld) [#/Vol] 0.9 10*3/uL 0.0-0.[address] [facility] Monocytes/100 WBC Auto (Bld) Ordered By: Ajit Pettit on 02-09-2023 Monocytes/100 WBC (Bld) 7.0 % . [facility] Neutrophils Auto (Bld) [#/Vo l]Ordered By: Ajit Millanc on 02-09-2023 Neutrophils (Bld) [#/Vol] 8.5 10*3/uL 1.8-7.[address] [facility] Neutrophils/100 WBC Auto (Bl d)Ordered By: Ajit Lariossic on 02-09-2023 Neutrophils/100 WBC (Bld) 64.4 % . [facility] No Panel InformationOrdered By: Ajit Pettit on 02-09-2023 Estimated GFR (CKD-EPI) > 60.0 mL/Min [facility] Creatinine Clearance (Chem N/A [facility] Nucleated erythrocytes [Pres ence] in Blood by Automated countOrdered By: Ajit Pettit on 02-09-2023 Nucleated RBC Auto Ql (Bld) 0.0 /100{WBC} 0-0.[address] [facility] Platelet mean volume Auto (B ld) [Entitic vol]Ordered By: Ajit Pettit on 02-09-2023 Platelet mean volume (Bld) [Entitic vol] 8.8 fL 6.3-10.[address] [facility] Platelets Auto (Bld) [#/Vol] Ordered By: Ajit Pettit on 02-09-2023 Platelets (Bld) [#/Vol] 295 10*3/uL 150-[address] [facility] Potassium [Moles/volume] in Serum or PlasmaOrdered By: Ajit Pettit on 02-09-2023 Potassium [Moles/Vol] 4.5 mmol/L 3.5-5.1 [facility] Protein [Mass/volume] in Ser um or PlasmaOrdered By: Ajit Pettit on 02-09-2023 Protein [Mass/Vol] 6.7 g/dL 6.4-8.9 [facility] RBC Auto (Bld) [#/Vol]Ordere d By: Ajit Pettit on 02-09-2023 RBC (Bld) [#/Vol] 4.44 10*6/uL 3.60-5.00 [facility] Serum or plasma albumin/glob ulin mass ratioOrdered By: Ajit Pettit on 02-09-2023 Albumin/Globulin [Mass ratio] 1.9 {ratio} [facility] Serum or plasma anion gap de terminationOrdered By: Ajit Pettit on 02-09-2023 Anion gap [Moles/Vol] 15.7 mmol/L 6.0-15.0 [facility] Serum or plasma high density lipoprotein (HDL) cholesterol measurementOrdered By: Ajit Pettit on 02-09-2023 Cholesterol in HDL [Mass/Vol] 41 mg/dL 35-[address] [facility] Comment on above: HDL CHOL ATP-III CLA SSIFICATION Cardiovascular RiskHDL > or equal to 60 mg/dL LOWHDL < 40 mg/dL HIGH Serum or plasma total choles terol/high density lipoprotein (HDL) cholesterol mass ratOrdered By: Ajit Pettit on 02-09-2023 Cholesterol.total/Suellen sterol in HDL [Mass ratio] 4.0 {ratio} <5.[address] [facility] Sodium [Moles/volume] in Ser um or PlasmaOrdered By: Ajit Pettit on 02-09-2023 Sodium [Moles/Vol] 136 mmol/L 136-145 [facility] Thyrotropin [Units/volume] i n Serum or PlasmaOrdered By: Ajit Pettit on 02-09-2023 TSH Qn 2.98 m[IU]/L 0.45-5.[address] [facility] Triglyceride [Mass/volume] i n Serum or PlasmaOrdered By: Ajit Pettit on 02-09-2023 Triglyceride [Mass/Vol] 485 mg/dL 0-149 [facility] Comment on above: If the triglyceride [...] 02-09-2023 Urea nitrogen [Mass/Vol] 10 mg/dL 7-[address] [facility] Urine culture routineOrdered By: Ajit Pettit on 02-09-2023 Bacteria identified Cx Nom (U) [address] [facility] WBC Auto (Bld) [#/Vol]Ordere d By: Ajit Pettit on 02-09-2023 WBC (Bld) [#/Vol] 13.2 10*3/uL 3.8-11.6 [facility] ACETONE SERUMon 01-29-2023 ACETONE Negative Normal NEGATIVE [facility] Comment on above: Performed By: #### A CETON #### [facility] [address] [place] [address] Dr. Vito Grimm CBC AUTO DIFFon 01-29-2023 BASO # 0.1 103/ul Normal 0.0-0.1 [facility] Comment on above: Performed By: #### C BC #### [facility] [address] [address] [address] Vito Grimm Basophils/100 WBC (Bld) 0.5 % Normal 0.2-2.0 [facility] Comment on above: Performed By: #### C BC #### [facility] [address] [place] [address] Dr. Vito Grimm EO # 0.1 103/ul Normal 0.0-0.7 [facility] Comment on above: Performed By: #### C BC #### [facility] [address] [place] [address] Dr. Vito Grimm Eosinophils/100 WBC (Bld) 0.7 % Critically low 0.9-7.0 [facility] Comment on above: Performed By: #### C BC #### [facility] [address] [place] [address] Dr. Vito Grimm Erythrocyte distribution width (RBC) [Ratio] 12.9 % Normal 11.0-15.0 [facility] Comment on above: Performed By: #### C BC #### [facility] [address] [place] [address] Dr. Vito Grimm Hematocrit (Bld) [Volume fraction] 39.0 % Normal 36.0-48.0 [facility] Comment on above: Performed By: #### C BC #### [facility] [address] [place] [address] Dr. Vito Grimm Hemoglobin (Bld) [Mass/Vol] 13.1 g/dL Normal 12.0-16.0 [facility] Comment on above: Performed By: #### C BC #### [facility] [address] [place] [address] Dr. Vito Grimm IG # 0.11 10e3/ul Critically high 0.00-0.03 [facility] Comment on above: Performed By: #### C BC #### [facility] [address] [place] [address] Dr. Vito Grimm IG % 0.8 % Critically high 0.0-0.5 [facility] Comment on above: Performed By: #### C BC #### [facility] [address] [place] [address] Dr. Vito Grimm LYMPH # 4.6 103/ul Critically high 1.2-3.8 [facility] Comment on above: Performed By: #### C BC #### [facility] [address] [place] [address] Dr. Vito Grimm Lymphocytes/100 WBC (Bld) 34.4 % Normal 20.5-60.0 [facility] Comment on above: Performed By: #### C BC #### [facility] [address] [place] [address] Dr. Vito Grimm MANUAL DIFF REQ NO Normal [facility] Comment on above: Performed By: #### C BC #### [facility] [address] [place] [address] Dr. Vito Grimm MCH (RBC) [Entitic mass] 29.9 pg Normal 26.7-34.0 [facility] Comment on above: Performed By: #### C BC #### [facility] [address] [place] [address] Dr. Vito Grimm MCHC (RBC) [Mass/Vol] 33.6 g/dL Normal 29.9-35.2 [facility] Comment on above: Performed By: #### C BC #### [facility] [address] [place] [address] Dr. Vito Grimm MCV (RBC) [Entitic vol] 89.0 fL Normal 81.0-99.0 [facility] Comment on above: Performed By: #### C BC #### [facility] [address] [place] [address] Dr. Vito Grimm MONO # 1.0 103/ul Critically high 0.3-0.8 [facility] Comment on above: Performed By: #### C BC #### [facility] [address] [place] [address] Dr. Vito Grimm Monocytes/100 WBC (Bld) 7.3 % Normal 1.7-12.0 [facility] Comment on above: Performed By: #### C BC #### [facility] [address] [place] [address] Dr. Vito Grimm NEUT # 7.5 103/ul Critically high 1.4-6.5 [facility] Comment on above: Performed By: #### C BC #### [facility] [address] [place] [address] Dr. Vito Grimm Neutrophils/100 WBC (Bld) 56.3 % Normal 43.0-75.0 [facility] Comment on above: Performed By: #### C BC #### [facility] [address] [place] [address] Dr. Vito Grimm Platelet mean volume (Bld) [Entitic vol] 9.6 fL Normal 9.5-13.5 [facility] Comment on above: Performed By: #### C BC #### [facility] [address] [place] [address] Dr. Vito Grimm PLT 272 103/ul Normal 150-450 [facility] Comment on above: Performed By: #### C BC #### [facility] [address] [place] [address] Dr. Vito Grimm RBC 4.38 106/ul Normal 4.20-5.40 [facility] Comment on above: Performed By: #### C BC #### [facility] [address] [place] [address] Dr. Vito Grimm WBC 13.4 103/ul Critically high 4.0-11.0 [facility] Comment on above: Performed By: #### C BC #### [facility] [address] [place] [address] Dr. Vito Grimm ER URINE PROFILEon 3 Bilirubin Ql (U) Negative Normal NEGATIVE [facility] Comment on above: Performed By: #### E RUR #### [facility] [address] [place] [address] Dr. Vito Grimm Clarity (U) SL CLOUDY Abnormal CLEAR [facility] Comment on above: Performed By: #### E RUR #### [facility] [address] [place] [address] Dr. Vito Grimm Color (U) LT. YELLOW Normal YELLOW [facility] Comment on above: Performed By: #### E RUR #### [facility] [address] [place] [address] Dr. Vito Grimm ERUAHD A micrscopic examina tion will be performed if indicated. Normal [facility] Comment on above: Performed By: #### E RUR #### [facility] [address] [place] [address] Dr. Vito Grimm Glucose Ql (U) >1000 Abnormal NEGATIVE [facility] Comment on above: Performed By: #### E RUR #### [facility] [address] [place] [address] Dr. Vito Grimm Hemoglobin Ql (U) Negative Normal NEGATIVE [facility] Comment on above: Performed By: #### E RUR #### [facility] [address] [place] [address] Dr. Vito Grimm Ketones Ql (U) Negative Normal NEGATIVE [facility] Comment on above: Performed By: #### E RUR #### [facility] [address] [place] [address] Dr. Vito Grimm LEUKOCYTES Negative Normal NEGATIVE [facility] Comment on above: Performed By: #### E RUR #### [facility] [address] [place] [address] Dr. Vito Grimm Nitrite Ql (U) Negative Normal NEGATIVE [facility] Comment on above: Performed By: #### E RUR #### [facility] [address] [place] [address] Dr. Vito Grimm pH (U) 5.5 [pH] Normal 5-9 [facility] Comment on above: Performed By: #### E RUR #### [facility] [address] [place] [address] Dr. Vito Grimm SPEC GRAVITY 1.010 Normal 1.005-<=1. 025 [facility] Comment on above: Performed By: #### E RUR #### [facility] [address] [address] [address] Vito Grimm UA PROTEIN Negative Normal NEGATIVE/ TRACE [facility] Comment on above: Performed By: #### E RUR #### [facility] [address] [place] [address] Dr. Vito Grimm UR MICRO IND NOT INDICATED Normal [facility] Comment on above: Performed By: #### E RUR #### [facility] [address] [place] [address] Dr. Vito Grimm Urobilinogen Qn (U) 0.2 {Helen'U}/dL Normal 0.2 - 1. 0 [facility] Comment on above: Performed By: #### E RUR #### [facility] [address] [place] [address] Dr. Vito Grimm POINT OF CARE GLUCOSEon 01-03 Glucose [Mass/Vol] 279 mg/dL Critically high 74-106 T [facility] Comment on above: Performed By: #### P OCGLUC #### [facility] [address] [place] [address] Dr. Vito Grimm PROF 14(COMP METB)on 023 Albumin [Mass/Vol] 3.5 g/dL Normal 3.4-5.0 [facility] Comment on above: Performed By: #### C MP, HSTROPN #### [facility] [address] [place] [address] Dr. Vito Grimm Albumin/Globulin [Mass ratio] 1.0 {ratio} Normal [facility] Comment on above: Performed By: #### C MP, HSTROPN #### [facility] [address] [place] [address] Dr. Vito Grimm ALP [Catalytic activity/Vol] 85 U/L Normal 46-116 [facility] Comment on above: Performed By: #### C MP, HSTROPN #### [facility] [address] [place] [address] Dr. Vito Grimm ALT [Catalytic activity/Vol] 28 U/L Normal 14-59 [facility] Comment on above: Performed By: #### C MP, HSTROPN #### [facility] [address] [address] [address] Vito Grimm Anion gap [Moles/Vol] 15.9 mmol/L Normal [facility] Comment on above: Performed By: #### C MP, HSTROPN #### [facility] [address] [address] [address] Vito Grimm AST [Catalytic activity/Vol] 16 U/L Normal 15-37 [facility] Comment on above: Performed By: #### C MP, HSTROPN #### [facility] [address] [place] [address] Dr. Vito Grimm Bilirubin [Mass/Vol] 0.2 mg/dL Normal 0.2-1.0 [facility] Comment on above: Performed By: #### C MP, HSTROPN #### [facility] [address] [place] [address] Dr. Vito Grimm Calcium [Mass/Vol] 8.8 mg/dL Normal 8.5-10.1 [facility] Comment on above: Performed By: #### C MATHIEU, HSTROPN #### [facility] [address] [place] [address] Dr. Vito Grimm Chloride [Moles/Vol] 96 mmol/L Critically low 98-107 [facility] Comment on above: Performed By: #### C MP, HSTROPN #### [facility] [address] [place] [address] Dr. Vito Grimm CO2 [Moles/Vol] 24.1 mmol/L Normal 21.0-32.0 [facility] Comment on above: Performed By: #### C MP, HSTROPN #### [facility] [address] [place] [address] Dr. Vito Grimm Creatinine [Mass/Vol] 0.85 mg/dL Normal 0.55-1.02 [facility] Comment on above: Performed By: #### C MP, HSTROPN #### [facility] [address] [place] [address] Dr. Vito Grimm EGFR-AF MALAGASY >60 Normal >=60 [facility] Comment on above: Performed By: #### C MATHIEU, HSTROPN #### [facility] [address] [place] [address] Dr. Vito Grimm EGFR-NON AF MALAGASY >60 Normal >=60 [facility] Comment on above: Performed By: #### C MATHIEU, HSTROPN #### [facility] [address] [place] [address] Dr. Vito Grimm Globulin (S) [Mass/Vol] 3.6 g/dL Normal [facility] Comment on above: Performed By: #### C MATHIEU, HSTROPN #### [facility] [address] [place] [address] Dr. Vito Grimm Glucose [Mass/Vol] 350 mg/dL Critically high 74-106 [facility] Comment on above: Performed By: #### C MATHIEU, HSTROPN #### [facility] [address] [place] [address] Dr. Vito Grimm Potassium [Moles/Vol] 4.0 mmol/L Normal 3.5-5.1 [facility] Comment on above: Performed By: #### C MATHIEU, HSTROPN #### [facility] [address] [place] [address] Dr. Vito Grimm Protein [Mass/Vol] 7.1 g/dL Normal 6.4-8.2 [facility] Comment on above: Performed By: #### C MATHIEU, HSTROPN #### [facility] [address] [place] [address] Dr. Vito Grimm Sodium [Moles/Vol] 132 mmol/L Critically low 136-145 [facility] Comment on above: Performed By: #### C MATHIEU, HSTROPN #### [facility] [address] [place] [address] Dr. Vito Grimm Urea nitrogen [Mass/Vol] 10.0 mg/dL Normal 7.0-18.0 [facility] Comment on above: Performed By: #### C MATHIEU, HSTROPN #### [facility] [address] [place] [address] Dr. Vito Grimm Urea nitrogen/Creatinine [Mass ratio] 11.8 mg/mg Normal [facility] Comment on above: Performed By: #### C MP, HSTROPN #### [facility] [address] [place] [address] Dr. Vito Grimm TROPONIN, HIGH SENSITIVITYon 01-29-2023 HSTROP <4.0 Normal 4.0-51.3 [facility] Comment on above: Result Comment: CUT- OFF POINTS HAVE BEEN ESTABLISHED BASED ON THE FOURTH UNIVERSAL DEFINITIONS OF MYOCARDIAL INFARCTION. THE UPPER REFERENCE LIMIT (URL) OF TROPONIN, DEFINED THE 99TH PERCENTILE OF cTnI DISTRIBUTION IN A REFERENCE POPULATION, HAS BEEN CONFIRMED THE DECISION THRESHOLD FOR ID DIAGNOSIS. Performed By: #### C MP, HSTROPN #### [facility] [address] [place] [address] Dr. Vito Grimm HCG ( test) IA.rapi d Ql (U)Ordered By: Kyler Miramontes on 11-18-2022 HCG ( test) Ql (U) Negative [facility] CBC AUTO DIFFon 11-12-2022 BASO # 0.1 103/ul Normal 0.0-0.1 [facility] Comment on above: Performed By: #### C MP, HSTROPN #### [facility] [address] [place] [address] Dr. Vito Grimm Basophils/100 WBC (Bld) 0.6 % Normal 0.2-2.0 [facility] Comment on above: Performed By: #### C MP, HSTROPN #### [facility] [address] [place] [address] Dr. Vito Grimm EO # 0.2 103/ul Normal 0.0-0.7 [facility] Comment on above: Performed By: #### C MP, HSTROPN #### [facility] [address] [place] [address] Dr. Vito Grimm Eosinophils/100 WBC (Bld) 1.1 % Normal 0.9-7.0 [facility] Comment on above: Performed By: #### C MP, HSTROPN #### [facility] [address] [place] [address] Dr. Vito Grimm Erythrocyte distribution width (RBC) [Ratio] 12.6 % Normal 11.0-15.0 [facility] Comment on above: Performed By: #### C MP, HSTROPN #### [facility] [address] [place] [address] Dr. Vito Grimm Hematocrit (Bld) [Volume fraction] 39.7 % Normal 36.0-48.0 [facility] Comment on above: Performed By: #### C MATHIEU, HSTROPN #### [facility] [address] [place] [address] Dr. Vito Grimm Hemoglobin (Bld) [Mass/Vol] 12.9 g/dL Normal 12.0-16.0 [facility] Comment on above: Performed By: #### C MATHIEU, HSTROPN #### [facility] [address] [place] [address] Dr. Vito Grimm IG # 0.07 10e3/ul Critically high 0.00-0.03 [facility] Comment on above: Performed By: #### C MATHIEU, HSTROPN #### [facility] [address] [place] [address] Dr. Vito Grimm IG % 0.5 % Normal 0.0-0.5 [facility] Comment on above: Performed By: #### C MATHIEU, HSTROPN #### [facility] [address] [place] [address] Dr. Vito Grimm LYMPH # 5.3 103/ul Critically high 1.2-3.8 [facility] Comment on above: Performed By: #### C MP, HSTROPN #### [facility] [address] [place] [address] Dr. Vito Grimm Lymphocytes/100 WBC (Bld) 38.4 % Normal 20.5-60.0 [facility] Comment on above: Performed By: #### C MATHIEU, HSTROPN #### [facility] [address] [place] [address] Dr. Vito Grimm MANUAL DIFF REQ NO Normal [facility] Comment on above: Performed By: #### C MP, HSTROPN #### [facility] [address] [place] [address] Dr. Vito Grimm MCH (RBC) [Entitic mass] 29.7 pg Normal 26.7-34.0 [facility] Comment on above: Performed By: #### C MP, HSTROPN #### [facility] [address] [place] [address] Dr. Vito Grimm MCHC (RBC) [Mass/Vol] 32.5 g/dL Normal 29.9-35.2 [facility] Comment on above: Performed By: #### C MP, HSTROPN #### [facility] [address] [place] [address] Dr. Vito Grimm MCV (RBC) [Entitic vol] 91.5 fL Normal 81.0-99.0 [facility] Comment on above: Performed By: #### C MP, HSTROPN #### [facility] [address] [place] [address] Dr. Vito Grimm MONO # 1.0 103/ul Critically high 0.3-0.8 [facility] Comment on above: Performed By: #### C MP, HSTROPN #### [facility] [address] [place] [address] Dr. Vito Grimm Monocytes/100 WBC (Bld) 7.3 % Normal 1.7-12.0 [facility] Comment on above: Performed By: #### C MP, HSTROPN #### [facility] [address] [place] [address] Dr. Vito Grimm NEUT # 7.2 103/ul Critically high 1.4-6.5 [facility] Comment on above: Performed By: #### C MP, HSTROPN #### [facility] [address] [place] [address] Dr. Vito Grimm Neutrophils/100 WBC (Bld) 52.1 % Normal 43.0-75.0 [facility] Comment on above: Performed By: #### C MP, HSTROPN #### [facility] [address] [place] [address] Dr. Vito Grimm Platelet mean volume (Bld) [Entitic vol] 9.4 fL Critically low 9.5-13.5 [facility] Comment on above: Performed By: #### C MP, HSTROPN #### [facility] [address] [place] [address] Dr. Vito Grimm PLT 297 103/ul Normal 150-450 [facility] Comment on above: Performed By: #### C MP, HSTROPN #### [facility] [address] [place] [address] Dr. Vito Grimm RBC 4.34 106/ul Normal 4.20-5.40 [facility] Comment on above: Performed By: #### C MATHIEU, HSTROPN #### [facility] [address] [place] [address] Dr. Vito Grimm WBC 13.9 103/ul Critically high 4.0-11.0 [facility] Comment on above: Performed By: #### C MP, HSTROPN #### [facility] [address] [place] [address] Dr. Vito Grimm DEPAKENE/ VALPROIC ACIDon DEPAKENE 55.9 ug/ml Normal 50.0-100.0 [facility] Comment on above: Performed By: #### V ALP #### [facility] [address] [place] [address] Dr. Vito Grimm LACTATE/LACTIC ACIDon 2022 Lactate [Moles/Vol] 3.6 mmol/L Critically high 0.4-1.9 [facility] Comment on above: Performed By: #### C MP, HSTROPN #### [facility] [address] [place] [address] Dr. Vito Grimm PROF 14(COMP METB)on 023 Albumin [Mass/Vol] 3.6 g/dL Normal 3.4-5.0 [facility] Comment on above: Performed By: #### C MP, HSTROPN #### [facility] [address] [address] [address] Vito Grimm Albumin/Globulin [Mass ratio] 1.1 {ratio} Normal [facility] Comment on above: Performed By: #### C MP, HSTROPN #### [facility] [address] [address] [address] Vito Grimm ALP [Catalytic activity/Vol] 57 U/L Normal 46-116 [facility] Comment on above: Performed By: #### C MP, HSTROPN #### [facility] [address] [address] [address] Vito Grimm ALT [Catalytic activity/Vol] 23 U/L Normal 14-59 [facility] Comment on above: Performed By: #### C MP, HSTROPN #### [facility] [address] [address] [address] Vito Grimm Anion gap [Moles/Vol] 17.0 mmol/L Normal [facility] Comment on above: Performed By: #### C MP, HSTROPN #### [facility] [address] [address] [address] Vito Grimm AST [Catalytic activity/Vol] 16 U/L Normal 15-37 [facility] Comment on above: Performed By: #### C MP, HSTROPN #### [facility] [address] [address] [address] Vito Grimm Bilirubin [Mass/Vol] 0.1 mg/dL Critically low 0.2-1.0 [facility] Comment on above: Performed By: #### C MP, HSTROPN #### [facility] [address] [address] [address] Vito Grimm Calcium [Mass/Vol] 8.8 mg/dL Normal 8.5-10.1 [facility] Comment on above: Performed By: #### C MP, HSTROPN #### [facility] [address] [address] [address] Vito Grimm Chloride [Moles/Vol] 101 mmol/L Normal 98-107 [facility] Comment on above: Performed By: #### C MATHIEU, HSTROPN #### [facility] [address] [place] [address] Dr. Vito Grimm CO2 [Moles/Vol] 23.5 mmol/L Normal 21.0-32.0 [facility] Comment on above: Performed By: #### C MATHIEU, HSTROPN #### [facility] [address] [place] [address] Dr. Vito Grimm Creatinine [Mass/Vol] 0.72 mg/dL Normal 0.55-1.02 [facility] Comment on above: Performed By: #### C MATHIEU, HSTROPN #### [facility] [address] [place] [address] Dr. Vito Grimm EGFR-AF MALAGASY >60 Normal >=60 [facility] Comment on above: Performed By: #### C MATHIEU, HSTROPN #### [facility] [address] [place] [address] Dr. Vito Grimm EGFR-NON AF MALAGASY >60 Normal >=60 [facility] Comment on above: Performed By: #### C MATHIEU, HSTROPN #### [facility] [address] [place] [address] Dr. Vito Grimm Globulin (S) [Mass/Vol] 3.4 g/dL Normal [facility] Comment on above: Performed By: #### C MATHIEU, HSTROPN #### [facility] [address] [place] [address] Dr. Vito Grimm Glucose [Mass/Vol] 146 mg/dL Critically high 74-106 [facility] Comment on above: Performed By: #### C MATHIEU, HSTROPN #### [facility] [address] [place] [address] Dr. Vito Grimm Potassium [Moles/Vol] 4.5 mmol/L Normal 3.5-5.1 [facility] Comment on above: Performed By: #### C MATHIEU, HSTROPN #### [facility] [address] [place] [address] Dr. Vito Grimm Protein [Mass/Vol] 7.0 g/dL Normal 6.4-8.2 [facility] Comment on above: Performed By: #### C MP, HSTROPN #### [facility] [address] [address] [address] Vito Grimm Sodium [Moles/Vol] 137 mmol/L Normal 136-145 [facility] Comment on above: Performed By: #### C MP, HSTROPN #### [facility] [address] [address] [address] Vito Grimm Urea nitrogen [Mass/Vol] 11.0 mg/dL Normal 7.0-18.0 [facility] Comment on above: Performed By: #### C MP, HSTROPN #### [facility] [address] [address] [address] Vito Grimm Urea nitrogen/Creatinine [Mass ratio] 15.3 mg/mg Normal [facility] Comment on above: Performed By: #### C MATHIEU, HSTROPN #### [facility] [address] [address] [address] Vito Grimm Albumin [Mass/volume] in Ser um or PlasmaOrdered By: Ajit Pettit on 11-05-2022 Albumin [Mass/Vol] 4.2 g/dL 3.2-5.5 [facility] Basophils Auto (Bld) [#/Vol] Ordered By: jAit Pettit on 11-05-2022 Basophils (Bld) [#/Vol] 0.1 10*3/uL 0.0-0.[address] [facility] Basophils/100 WBC Auto (Bld) Ordered By: Ajit Pettit on 11-05-2022 Basophils/100 WBC (Bld) 0.8 % . [facility] Cholesterol [Mass/volume] in Serum or PlasmaOrdered By: Ajit Pettit on 11-05-2022 Cholesterol [Mass/Vol] 174 mg/dL 140-200 [facility] Comment on above: Chol less than 200 m g/dl low riskChol 201-239 mg/dl borderline riskChol 240 mg/dl and greater high risk Cholesterol in LDL Calc [Mas s/Vol]Ordered By: Ajit Pettit on 11-05-2022 Cholesterol in LDL [Mass/Vol] 66 mg/dL 0-[address] [facility] Comment on above: LDL ATP III CLASSIFI CATIONLDL less than 100 mg/dL OptimalLDL 100-129 mg/dL Near or above optimalLDL 130-159 mg/dL Borderline highLDL 160-189 mg/dL HighLDL greater than 189 mg/dL Very high Cholesterol in VLDL Calc [Ma ss/Vol]Ordered By: Ajit Pettit on 11-05-2022 Cholesterol in VLDL [Mass/Vol] 66 mg/dL [facility] Creatinine and Glomerular fi ltration rate.predicted panel (S/P/Bld)Ordered By: Ajit Pettit on 11-05-2022 Creatinine [Mass/Vol] 0.57 mg/dL 0.44-1.03 [facility] Eosinophils Auto (Bld) [#/Vo l]Ordered By: Ajit Pettit on 11-05-2022 Eosinophils (Bld) [#/Vol] 0.1 10*3/uL 0.0-0.[address] [facility] Eosinophils/100 WBC Auto (Bl d)Ordered By: Ajit Pettit on 11-05-2022 Eosinophils/100 WBC (Bld) 0.7 % . [facility] Erythrocyte distribution wid th Auto (RBC) [Ratio]Ordered By: Ajit Pettit on 11-05-2022 Erythrocyte distribution width (RBC) [Ratio] 13.5 % 11.9-15.[address] [facility] Estimated glomerular filtrat ion rate (GFR) non- AmericanOrdered By: Ajit Pettit on 11-05-2022 GFR/1.73 sq M.predicted among non-blacks MDRD (S/P/Bld) [Vol rate/Area] > 60 mL/Min [facility] Globulin Calc (S) [Mass/Vol] Ordered By: Ajit Pettit on 11-05-2022 Globulin (S) [Mass/Vol] 2.6 g/dL [facility] Glucose mean value [Mass/vol ume] in Blood Estimated from glycated hemoglobinOrdered By: Ajit Pettit on 11-05-2022 Average glucose Estimated from glycated hemoglobin (Bld) [Mass/Vol] 143 mg/dL [facility] HPV 16+18+31+33+35+39+45+51+ 52+56+58+59+68 DNA cervix probe + signal amplificOrdered By: Ajit Pettit on 11-05-2022 HPV 16+18+31+33+35+39+45+51 +52+56+58+59+68 DNA Probe+sig amp Ql (Cvx) Positive Negative [facility] Comment on above: This nucleic acid am plification test detects fourteen high-risk HPV types (16,18,31,33,35,39,45,51,52,56,58,59,66,68)without differentiation. Hematocrit Auto (Bld) [Volum e fraction]Ordered By: Ajit Pettit on 11-05-2022 Hematocrit (Bld) [Volume fraction] 40.1 % 34.0-46.[address] [facility] Hemoglobin A1c percentageOrd ered By: Ajit Pettit on 11-05-2022 HbA1c (Bld) [Mass fraction] 6.6 % 4.3-5.[address] [facility] Comment on above: Increased risk for d iabetes: 5.7 - 6.4diabetes: >6.4glycemic control for adults with diabetes: <7.0 Hemoglobin [Mass/volume] in BloodOrdered By: Ajit Pettit on 11-05-2022 Hemoglobin (Bld) [Mass/Vol] 13.2 g/dL 11.8-15.[address] [facility] Laboratory - Microbiology an d Antimicrobial susceptibilityOrdered By: Ajit Pettit on 11-05-2022 N. gonorrhoeae DNA NAYELY+probe Ql (Unsp spec) Negative Negative [facility] Comment on above: Performed at: =[facility]ron evans [address] [id number] Director: Breanna Clark MD, Phone: [phone] Leukocytes [#/volume] correc cherie for nucleated erythrocytes in Blood by Automated counOrdered By: Ajit Pettit on 11-05-2022 WBC corrected for nucl RBC Auto (Bld) [#/Vol] 13.7 10*3/uL 3.8-11.[address] [facility] Lymphocytes Auto (Bld) [#/Vo l]Ordered By: Ajit Millanc on 11-05-2022 Lymphocytes (Bld) [#/Vol] 5.1 10*3/uL 1.00-4.[address] [facility] Lymphocytes/100 WBC Auto (Bl d)Ordered By: Ajit Millanc on 11-05-2022 Lymphocytes/100 WBC (Bld) 37.3 % . [facility] MCH Auto (RBC) [Entitic mass ]Ordered By: jAit Lariossic on 11-05-2022 MCH (RBC) [Entitic mass] 29.5 pg 24.7-34.[address] [facility] MCHC Auto (RBC) [Mass/Vol]Or dered By: Ajit Lariossic on 11-05-2022 MCHC (RBC) [Mass/Vol] 32.8 g/dL 32.0-35.0 [facility] MCV Auto (RBC) [Entitic vol] Ordered By: Ajit Millanc on 11-05-2022 MCV (RBC) [Entitic vol] 90.0 fL 80-100 [facility] Microcytes LM Ql (Bld)Ordere d By: Ajit Lariossic on 11-05-2022 Microcytes Ql (Bld) Slight [facility] Monocytes Auto (Bld) [#/Vol] Ordered By: Ajit Lariossic on 11-05-2022 Monocytes (Bld) [#/Vol] 1.1 10*3/uL 0.0-0.[address] [facility] Monocytes/100 WBC Auto (Bld) Ordered By: Ajit Lariossic on 11-05-2022 Monocytes/100 WBC (Bld) 8.3 % . [facility] Neutrophils Auto (Bld) [#/Vo l]Ordered By: Ajit Lariossic on 11-05-2022 Neutrophils (Bld) [#/Vol] 7.3 10*3/uL 1.8-7.[address] [facility] Neutrophils/100 WBC Auto (Bl d)Ordered By: Aijt Lariossic on 11-05-2022 Neutrophils/100 WBC (Bld) 52.9 % . [facility] No Panel InformationOrdered By: Ajit Pettit on 11-05-2022 25-Hydroxy Vitamin D Total 28.8 ng/mL 30-[address] [facility] Comment on above: VITAMIN D STATUS 25( [place])VITAMIN D RANGE (ng/mL) Deficient <20 Insufficient 20 to <30Sufficient 30 to 100Reference: Jovanni MF,Dominique NC, Gillian NINA, et al. Evaluation,treatment, and prevention of vitamin D deficiency; an Endocrine Society clinical practice guideline. JCEM. 2010; 96(7):1911-30. Luz Elena albicans (NAYELY) Negative Negative [facility] Comment on above: This test was develo ped and its performance characteristicsdetermined by [employer] It has not been cleared orapproved by the Food and Drug Administration. Luz Elena glabrata (NAYELY) Negative Negative [facility] Comment on above: This test was develo ped and its performance characteristicsdetermined by [employer] It has not been cleared orapproved by the Food and Drug Administration. Chlamydia trachomatis (NAYELY) (LAB) Negative Negative [facility] Estimated GFR () > 60 mL/Min [facility] Comment on above: GFR estimated refere nce range: According to KDOQI guidelines, <60 ml/min/1.73m2 is sufficient to diagnose a patient with chronic kidney disease. Human Papilloma Virus Type 16 Negative Negative [facility] Human Papilloma Virus Type 18/45 Negative Negative [facility] Comment on above: Performed at: =G - [facility] [address] [id number] Director: Breanna Clark MD, Phone: [phone] at: WB - [facility] [address] [id number] Director: Breanna Clark MD, Phone: [phone] IG Pap w/Ct-Ng Age Based (Off-Site) Note . [facility] Comment on above: TESTS RESULT FLAG UN ITS REF RANGE LAB - Clinician Provided Cytology Information No. of containers..01 ThinPrep Lupillo TATE Monisha... FLAG LEGEND: L-Low Normal,H-High Normal,LL-Alert Low,HH-Alert High <-Panic Low,>-Panic High,A-Abnormal,AA-Critical Abnormal ------Performed at:01 =G [facility] [address] [place] [address] Breanna Clark MD, Pharmacy Creatinine Clearance (Chem N/A [facility] Thin Prep Pap Comment Note . [facility] Comment on above: TESTS RESULT FLAG UN ITS REF RANGE LAB -DIAGNOSIS: 02 NEGATIVE FOR INTRAEPITHELIAL LESION OR MALIGNANCY. THIS SPECIMEN WAS RESCREENED PART OF OUR INJECTION MOLDING ENGINEER PROGRAM.Specimen adequacy: 02 Satisfactory for evaluation. Endocervical and/or squamous metaplastic cells (endocervical component) are present.Performed by: 02 Larry Mirza, Knife Setter (ASC)QC reviewed by: 02 Sammie Thomason, Supervisory Knife Setter (ASCP). 02Note: Note 02 The Pap smear [...] Low,>-Panic High,A-Abnormal,AA-Critical Abnormal ------Performed at:02 WB [facility] [address] [id number] Breanna Clark MD, Trichomonas vaginalis (NAYELY) Negative Negative [facility] Nucleated erythrocytes [Pres ence] in Blood by Automated countOrdered By: Ajit Pettit on 11-05-2022 Nucleated RBC Auto Ql (Bld) 0.1 /100{WBC} 0-0.[address] [facility] Platelet adequacy [Presence] in Blood by Light microscopyOrdered By: Ajit Pettit on 11-05-2022 Platelets LM Ql (Bld) Normal Normal [facility] Platelet mean volume Auto (B ld) [Entitic vol]Ordered By: Ajit Pettit on 11-05-2022 Platelet mean volume (Bld) [Entitic vol] 9.1 fL 6.3-10.[address] [facility] Platelet morphology finding [Identifier] in BloodOrdered By: Ajit Millanc on 11-05-2022 Platelet morphology finding Nom (Bld) N/A [facility] Platelets Auto (Bld) [#/Vol] Ordered By: Ajit Millanc on 11-05-2022 Platelets (Bld) [#/Vol] 304 10*3/uL 150-[address] [facility] Platelets Large [Presence] i n Blood by Light microscopyOrdered By: Ajit Pettit on 11-05-2022 Platelets Large LM Ql (Bld) Slight [facility] Polychromasia [Presence] in Blood by Light microscopyOrdered By: Ajit Pettit on 11-05-2022 Polychromasia LM Ql (Bld) Slight [facility] Protein [Mass/volume] in Ser um or PlasmaOrdered By: Ajit Pettit on 11-05-2022 Protein [Mass/Vol] 6.8 g/dL 6.1-7.9 [facility] RBC Auto (Bld) [#/Vol]Ordere d By: Ajit Pettit on 11-05-2022 RBC (Bld) [#/Vol] 4.46 10*6/uL 3.60-5.00 [facility] RBC morphologyOrdered By: Shelbi Pettit on 11-05-2022 RBC morphology finding Nom (Bld) N/A [facility] Serum or plasma alanine george otransferase measurement without P-5'-P (enzymatic activiOrdered By: Ajit Pettit on 11-05-2022 ALT No additional P-5'-P [Catalytic activity/Vol] 16 U/L 10-[address] [facility] Serum or plasma albumin/glob ulin mass ratioOrdered By: Ajit Pettit on 11-05-2022 Albumin/Globulin [Mass ratio] 1.6 {ratio} [facility] Serum or plasma alkaline lalo sphatase measurement (enzymatic activity/volume)Ordered By: Ajit Pettit on 11-05-2022 ALP [Catalytic activity/Vol] 52 U/L 32-[address] [facility] Serum or plasma anion gap de terminationOrdered By: Ajit Pettit on 11-05-2022 Anion gap [Moles/Vol] 14.2 mmol/L 6.0-15.0 [facility] Serum or plasma aspartate am inotransferase measurement (enzymatic activity/volume)Ordered By: Ajit Pettit on 11-05-2022 AST [Catalytic activity/Vol] 20 U/L 10-[address] [facility] Serum or plasma calcium ashwini urement (mass/volume)Ordered By: Ajit Pettit on 11-05-2022 Calcium [Mass/Vol] 9.3 mg/dL 8.2-10.2 [facility] Serum or plasma chloride jett surement (moles/volume)Ordered By: Ajit Pettit on 11-05-2022 Chloride [Moles/Vol] 99 mmol/L 95-114 [facility] Serum or plasma glucose ashwini urement (mass/volume)Ordered By: Ajit Pettit on 11-05-2022 Glucose [Mass/Vol] 96 mg/dL 70-100 [facility] Comment on above: ADA recommended refe rence rangeRandom Glucose Reference Range is dependent on time and content of last meal. Glucose of more than 200 mg/dL in a nonstressed, ambulatory subject supports the diagnosis of Diabetes Mellitus. Serum or plasma high density lipoprotein (HDL) cholesterol measurementOrdered By: Ajit Pettit on 11-05-2022 Cholesterol in HDL [Mass/Vol] 42 mg/dL 35-[address] [facility] Comment on above: HDL CHOL ATP-III CLA SSIFICATION Cardiovascular RiskHDL > or equal to 60 mg/dL LOWHDL < 40 mg/dL HIGH Serum or plasma potassium me asurement (moles/volume)Ordered By: Ajit Pettit on 11-05-2022 Potassium [Moles/Vol] 4.3 mmol/L 3.5-5.1 [facility] Serum or plasma sodium measu rement (moles/volume)Ordered By: Ajit Pettit on 11-05-2022 Sodium [Moles/Vol] 132 mmol/L 136-146 [facility] Serum or plasma total biliru bin measurement (mass/volume)Ordered By: Ajit Pettit on 11-05-2022 Bilirubin [Mass/Vol] 0.3 mg/dL 0.3-1.2 [facility] Serum or plasma total carbon dioxide measurement (moles/volume)Ordered By: Ajit Pettit on 11-05-2022 CO2 [Moles/Vol] 23.1 mmol/L 22.0-30.0 [facility] Serum or plasma total choles terol/high density lipoprotein (HDL) cholesterol mass ratOrdered By: Ajit Pettit on 11-05-2022 Cholesterol.total/Suellen sterol in HDL [Mass ratio] 4.1 {ratio} <5.[address] [facility] Serum or plasma urea nitroge n measurement (mass/volume)Ordered By: Ajit Pettit on 11-05-2022 Urea nitrogen [Mass/Vol] 7 mg/dL 9-[address] [facility] TSH DL <= 0.005 mIU/L QnOrde red By: Ajit Pettit on 11-05-2022 TSH Qn 4.07 m[IU]/L 0.45-5.[address] [facility] Triglyceride [Mass/volume] i n Serum or PlasmaOrdered By: Ajit Pettit on 11-05-2022 Triglyceride [Mass/Vol] 330 mg/dL 35-149 [facility] Comment on above: TRIG ATP III CLASSIF ICATIONTRIG less than 150 mg/dL NormalTRIG 150-199 mg/dL Borderline highTRIG 200-500 mg/dL High TRIG greater than 500 mg/dL Very highStandard traceable to the Center for Disease Conrtrol and Prevention (CDC) test method. Urine culture routineOrdered By: Ajit Pettit on 11-05-2022 Bacteria identified Cx Nom (U) No Growth [address] [facility] Vaginal fluid Atopobium vagi rich DNA detection by probe and target amplification methoOrdered By: Ajit Pettit on 11-05-2022 A. vaginae DNA NAYELY+probe Ql (Vag fld) Low - [address] [facility] Vaginal fluid Megasphaera sp ecies type 1 DNA detection by probe and target amplificatOrdered By: Ajit Pettit on 11-05-2022 Megasphaera sp type 1 DNA NAYELY+probe Ql (Vag fld) Low - [address] [facility] Comment on above: Calculate total scor e by adding the 3 individual bacterialvaginosis (BV) marker scores together. Total score isinterpreted as follows:Total score 0-1: Indicates the absence of BV.Total score 2: Indeterminate for BV. Additional clinical data should be evaluated to establish a diagnosis.Total score 3-6: Indicates the presence of BV.This test was developed and its performance characteristicsdetermined by [employer] It has not been cleared or approvedby the Food and Drug Administration. Vaginal fluid bacterial vagi nosis associated bacterium 2 DNA detection by probe and tOrdered By: Ajit Pettit on 11-05-2022 Bacterial vaginosis associated bacterium 2 DNA NAYELY+probe Ql (Vag fld) Low - [address] [facility] WBC Auto (Bld) [#/Vol]Ordere d By: Ajit Pettit on 11-05-2022 WBC (Bld) [#/Vol] 13.7 10*3/uL 3.8-11.6 [facility] Ambulatory Visit Summaryon 0 11-02-2022 Ambulatory Visit Summary RACHEL MCGARRY :1980 Visit Date:11/02/2022 Ambulatory Visit Instructions Your Diagnosis Urgency of urination Urethral stricture Feeling of incomplete bladder emptying Tests Performed Urnls Dip Stick Auto w/o Microscopy POC 56671 Your Care Team Attending Physician - Joshua [...] Joshua PRESTON MD Where: [facility] [place] Normal [facility] Patient Educationon 11-02-19 23 Patient Education [...] keep your urine pale yellow. ? Take gjry-ubv-atwnlay or prescription medicines. ? Eat foods that are high in fiber, such as beans, whole grains, and fresh fruits and vegetables. ? Limit foods that are high in fat and processed sugars, such as fried or sweet foods. General instructions ? Take ffct-ddi-usjcsij and prescription medicines only as told by [...] muscles that help control urination. ? Take ljnu-psb-aqybtuy and prescription medicines only as told by [...] 07/17/2010 Document Revised: 03/30/2019 Document Reviewed: 03/30/2019 [employer] Patient Education ? 2019 [employer]. Normal [facility] Urology Office/Clinic Noteon 11-02-2022 Urology Office/Clinic Note Chief Complaint Urinary problmes HPI Staff This is a 42 year old female here due to having problems with urination. Previous DX: feeling of incomplete bladder emptying, frequency and urgency. S/P Cysto done 08/24/22. Pt. states she has seen a [facility] since last visit and she has cyst [...] and history for this patient from Dr. rpeston I have reviewed and verified the staff [...] the plan. Follow-up With When Contact Information Joshua PRESTON MD, URL [address] [address]- [facility] (1) Additional Instructions: 6 month follow up [...] oral t (more content not included)... Normal [facility] Comment on above: Result Comment: Elec tronically Signed By: Joshua PRESTON MD\.br\Date and Time Signed: 11/02/22 11:43 EST\.br\Electronically Co-Signed By: Bailey Pacheco\.br\Date and Time Co-Signed: 11/02/22 11:30 EST Provider Letteron 09-29-2022 Provider Letter (Inserted Image. Bre ble to display) September 29, 2022 RACHEL MCGARRY [address] [place] [address] RACHEL MCGARRY 1980 Dear Rachel, You missed [...] do appreciate your understanding. Sincerely, [facility] [address] [address] [facility] Coding Summary.on 08-26-2022 Coding Summary. [id number] [id number]+ PGhlYWQ+KD3CBPQiN79zqQTonZ5 IA6aUYD2SVQEZWKEGOP7YCA1efX C3SZasA4YwqbWb KutjbUApDY74MIe3BFV3qVnfQJd kfZ4ekDNxO5j3LvJfTI47uL11WR lhQZCtQmR7WyKkslpkiZKp J1mxZeKsvURiAgx+PHRhYmxlIHd kTVMxBIwaUEIuXxDvyYflSC5mQk 9yZGVyLWNvbGxhcHNlOiBj f9fhZWDkSDooPP1vzAqjN2UrcSF 8UNJkn8s6Nq02hCS+SBVuZCI2iA siFWlca951LjZmf0ooXKB0 cEClZXviUKH0N16ad1H0CPRaOWT kACX6aIX8kM5pwJtapmnzA1UbmP AlHiS4LWF7oKMtxL6yhAqk bggdiJ0pXii+B46JDR6BZCMNRU8 SZmw2T1GtWfpeuAF+MW49EEYzBA 72pPThpCYlr4zocPe1EkSs NXRqQYR8yFuyNWljx4XvFLOhI42 kcZDry3U2KEVyzAgbcQQuKlFdeY P3dU0pOUydafnhj6rhjrjc Fzgmy9yxrb64lG01E58mKHjpLNE mDAE6FPYiVYRhaGpvar0saE7hSm 8+QIqvn4pyr4tclJe1ByTc INAdgcTpdSgoYAZ8h9TcOp33C8F rrWrld4ImLmc3iy94vWVwc7K6yQ N5MZzgFVUnkK4lSPenOiE5 EAMkYfUqgD30sVYoUKetUs8cgVo gwSgbGJ2wRIOkftgpYFOrsA6oIP GdpAHprRqzMT0lYKBtqase n628VmGmLCW6BCIedRHxT5CjcI8 iSgRjQPPsPAAlM5VrzHAaYJniZ9 06TYarMvW5JXSyfiWdT4Ix WAQehHojCfE9k7J5Lw8Dc0Xsdzg lTZA5EUgpHVFyRuBzUkRnYlC1C2 QdDfk7RCXxvEydAC7oU0Ld DTQutwhhskitrXT2TFKiRJSthV2 2mVSeHRjiIf1vk5T0i881XTKgBO NqyJ44Nn5emZlsEYTxtVHZ nP1unmeyf9yxdcooKiHvZVSvJQv 4NYl9CZEmqQcxFrEcNLB2ZkD0TQ B6kEOipR8wxBibsrvkkG5o Oyc+R34xtC9sSUF5XJF1hqmuBPM ougXcRG50UT57S8NuCfrqkVUhnE U+MMQcozXucLomFR5cRxYl q0hyo2XhXCteD7SlFXJvFOysHip 1WDOzXBS1tDL5qW7fIWKuJOwxi7 W8bDW3O9ImfdIomo7lx7ic OKCcULrvK40eyQKfl5X5VMGvdZF 6RSDsxVfqRlEflK43Jmv+PGNvbG txo1NeKzffq2rlr9rqmAc0 MaUbIWGgrpTsyWamOFP9b4IkTu9 0Q29rQUgfKGAsGHFaCJRrKZTvvT hgrt9cfD7kCi3+PGNvbCB3 mMT9xM2gUUOjNuW4CDqlB764VyY iiYSdCpfml2rjo5fneUe5QuGmMJ QazbWniTllYLE8u9JwSt86 L81dRBdmEIFrVNEiEUXeGJErjGw pyn5eiF5tQs8+CC9wc1gwsy94jN 48dHI+XSDuCXQ5pXwfXLfj ESMdlH3oPNweFoD0MBFkHwEftA5 6bEXgYDziHo1tpHjppHwuOD3kLA Epgcemq895KlJhg6pbAGDp dJIgEWhwBJN0E26bi8F3BDEdYIB eSFO4uZK3rC0cjKsukwmoiGBulF jhxaYkoCcjPWisQJsuG352 IHRvcDsnPlBhdGllbnQgTmFtZTo 4Q6PlDxy3YXPhzCriRF1dlIZaKP txPc4bhUhokWyaMM1fEMAq zcvxe006BpVin0xbWJNmyZYgTNr nGCL5Z48hx1V0HYFuEDNhPWK3nX N8iD5weCrvbliqlGIccXkn sqJvhWppUDznOQkbV542PKIydRz zBqPlzvYtYIGxgEL0YR66HK75cN Krd5N3fJL5O4QtLIBxsvfr zjwdhFX5EXNvPWCjlT86Sj0ynWn pKr1bFGQgZAE1LUUauSIaE6DkcN 3wVtEiDFCwMDBuP7JtiISq YExiX651MAefEyQ7ZNUvpyLwJ1N iVPLtqPwxQiS4n8E6Lf2AS3G1TS 15LI05cETxp0V5qUP7K1Um JVQpdyejgpwcbEB9YGEeRRWhuQ8 6Eg8izLajDm0fHPHdYDB8SSDtuD PrD3QtsZ6uSlQuDMJeBORz S5MeoJQaDUrxZ522SWmfGxD8CHA sorTxI3BbKXDvoHacQqV6o6N1Ye 5BFFt4PS59AE34mEUeh5L5 yJO2K2OzJUBmzxryzgckaGQ6MSN mBRKvnF99Xt7saPsiBj9gSTSvIV N0TCAdrWSuX8KxaX8qEvBs DUGrMNZnQ6ZmvJOyMPyaD917UDp lIhF1LUWsomLkH2AhBEVrdWdqCa Z8l8L3Be3JZZFxLV58TNC1 lWZ9DE46AG18O5MjJsmwnJKbzCW +PHRhYmxlIHdpZHRoPScxMDAlJy VeuYrnGB7uXe3cOSHuNUQi oXdmeUFoObXbs1gsLEHyCMjuJI2 dfHuoJ7MxuMV5GVTcb6b6Cj48G2 7rB7XytTH+ZSZzuTW5zMW0 sM3uZuKwQmY1HIgkM050VbGlaBE zOnbet3gij8qtzBm9HzB1URIdyq FcuOqiEBV5d9NwLj35Y45v IHdpZHRoPSIxNSUiIHZhbGlnbj0 epN1wQl8+IVMvrBS6bPP4xI2gUb LxZfD2SGwoM370DfFgkNZn Jsovg8ybr1mzoPe8FqQrGLKnwaX jiDcdSAU6i0YeHi00U8GuwRbjq9 HbEbt9yy88fTDyw3B8pEC9 O9FaKLLuytecdOZofMgyFA4dKCZ rricfHHNobU6eKAUjH7c8NtTaYe Y2MQoqZ2UjdlF2RMTwhIBa EDaoFBS4U10mm7R3IUKlWDFpMDF 0hRV4cX6eqIalapiydDHxpAeymf MyrOcbBPwjIJlmI247QDSn wIwhJHXfrA1zGBHxdHDxcSlcND8 hYOBsazhuEj3BUUZWRGPOUD3JJM QWNA17VQ02rEAjz6R7mYM6 W4YuMUIgetyhvpadoAX0IGWrFXN bvL29sSJhOGudBv3yd5B6u194GP BtWKEjlG40Vs6saOobRBPw zEWNiO5ztukga9pszxhpPhRoRDI vNCr7ANn5IBNnsBnyMmEqCTG0Rf Q0RCG0vMSsxU8gvRkugybg aM4nAvd+MFPeGDFoBGk3DGlndMJ +SRDjVTN7jIxxYXseOCSriQ1gZT YzT0r5SkHpEjJ9UFpyD8Lv OZMqhcrtIi00gS3bIuBvUuB7XFw iV6ZbcpT8AYPkfICfNTykQBX3J9 8it5Z4FBOjKSCsVRE5sGD0 vE4rdTzqzedlfJWtcInoqxOrgRp tAQcwAPvhN067UYQwcNngInUpMN hsRYEfTR08UE21aUNcd9Y8 lVS2P2DeORFynypphkvsmWA4BUH nQCLiaA95bESuOBteWm6ks7U0g6 30IYKdCEKkpW92Ee9clKjd JDFvhMHGhX7dkywng2jstnyxAxK kCFXhVEz6APd9DPAyoFxzEsEgWI T2KuR6WLV7yXHfbD6bpKvy klpaiY4sLnk+QmTkZRzpAR93ES3 8qARsf7B2wHU0T8WyDEQxwwhxmf jrvTL2QOMaXPWybW40jFSu HEliUw0hj0V9w343WKAlSSAgtB1 1Ek6wqMruFLUnhDFToZ3xqndoj0 kypibsEcChIFMtXUl0CAr4 WGKdeUtjLaHdOSQ0QsT5RVO7tZM ebM2jpKatqepytQ5cNqw+T3V0cG V2wTUjoFpmjOS+ZQ92lq80 V1YxFsxgZhz6TFOxQRB7lSH1oH6 tTNTpITnml5L0zIB5R7AevvAiar 1tl3dyZJPdSMpoD19grSZh m2O3YPFytHE3AZWjzMwmCnDozX3 3Oyc+PGCzgAals4IxIdmnk7mfp5 hwlTp5HyBwKOXejlYyqAql FSO1s4VzAk74R87oZMozKEEzWFW iTYQwGZByiKlwej0xqX6kHn7+PG SqpGV4tNZ4jJ5dGcCtVbN0 KAsaW980OdFaxAWrFgfzs1sou5f bnKf4IlTgRBNmmoKbeDipIYC6f9 DlQq95X3MyfUxeh3ZcWkr8 oy12vWDcx6L6zYE6D8SlEYOfcfl ypOOhcKbeGD0tOPVoqgeeFDGibF 8cCLElX1w7FiLxGwQ2QCgu I6ZpzcV7BAJkmNYmSSYcfKNYsL5 cjptda8spgeazUyMoOFCnGOs1ZR q6UQKgiEjeImZaJBL3DwP5 PXE4yAVbqC1srCvxnsywpD1rGnz +HBi7n1mnyFYuZE2biIZ0TV47RF 37kMWtl3K1rDY3B0FaCTPz emrplzmtiSZ4AWHeCRUneW38Dq2 bgIqnVj4zZRYnZKU8PXEkeIRqF1 RomZ7vKwLeHXDsNGRuJ7Nf wDTzKKmcL253AQjzEfI8EICuoxS aM6LyYYQnaAsyWjP7y2K5Zl4AGS 18BO19VR74tYCai7L3tFB1 R5BhROQpeceqwmgoyZG8YHYzYRI ixX38Wf3idTzbRr1uCESsTNG8CN TywNUlO5JjlQ0sBlDgOYCn MFOnK0ZnnQWtDSopW190UPnkEwK 0QJKvtrQgW3IzOGQjlTshFuC3f3 F1Ja9KKj17AH20EA53gPEe t0A9dLD8B1QgLWYvzezijhoozKR 3YGVlEIIctP99Ei5raKylAk1rXE HeWGZ3ZGCcxICeX4VlyB5e OnWoLRCgPEYaD6UjuORaILduP46 5HMerDkE5WKCpqbJbN3OkZAPjgN ewXyS4g9O7Sa8KBUzvcnn3 B2ErGqktnOG+WL81FQNcWB93mVA jkHSic8ewxEg6StQrBEEoZYV4kQ rhGRwdm3SwUJEmV44hvQCm c2U6 (more content not included)... [facility] IntraOperative Documentson 1 10-25-2021 IntraOperative Documents [id number]#[id number]:127 [facility] Consent for Procedure/Surger yon 08-24-2022 Consent for Procedure/Surgery [id number]#[id number]:127 [facility] Consent for Treatmenton 08-05 Consent for Treatment [id number]#[id number]:127 [facility] Inpatient Patient Summaryon 08-24-2022 Inpatient Patient Summary [address] [address] Clinical Summary Person Information Name: RACHEL MCGARRY Age: 42 Years : 1980 Sex: Female PCP: AJIT PETTIT CNP Marital Status: Race: White Ethnicity: Non- or Language: Nepalese Visit Id: Visit Reason: FEELING OF INCOMPLETE BLADDER EMPTY URINARY FREQUENCY Speciality: Acuity: Enc Type: Outpatient Med Service: Surgery Arrival: 08/24/2022 13:16:48 Discharge: Dispo Type: Address: [address] [place] [address] [facility] [id number] Provider Notes: Diagnosis: Problems Active Urgency of [...] PRESTON MD Follow up: With: Address: When: Jsohua Blood [facility], [address], [place] [id number] Business (1) Within 6 weeks Comments: Call for followup appointment. Monitor the urinary low after the dilation today. Have a great Thanksgiving. Patient Education Information: EU - Cystoscopy with Urethral Dilation Discharge Instructions (Custom) [facility] IntraOperative Documentson 1 10-24-2021 IntraOperative Documents [id number]:127 [facility] IntraOperative Documents [id number]#[id number]:127 [facility] Main OR Intraoperative Recor don 08-24-2022 Main OR Intraoperative Record IntraOp Document Type FTURO Summary Primary Physician: Joshua PRESTON MD Finalized Date/Time: 08/24/22 15:52:21 Pt. Name: RACHEL MCGARRY/Sex: 1980 Female Med Rec #: [id number] Physician: Joshua PRESTON MD Financial #: [id number] Pt. Type: O Room/Bed: / Admit/Disch: 08/24/22 13:16:48 - Institution: Case Times FTURO Entry 1 Patient Times In Room 08/24/22 15:42:00 Out Room 08/24/22 15:52:00 Procedure Times Start 08/24/22 15:45:00 Stop 08/24/22 15:48:00 Anesthesia Times Last Modified By: Kathy Lund RN 08/24/22 15:52:14 Case Attendance FTURO Entry 1 Entry 2 Entry 3 Case Attendee JORDANA BALDERAS, Joshua Mcgill TILE CLASSIFIER, Velma Lund RN, Kathy Bradford Role Performed Surgeon - Primary Scrub - Primary Youth Advocate - Primary Time In 08/24/22 15:42:00 08/24/22 [...] URETHRAL DILATION Primary Procedure Yes Primary Surgeon JORDANA BALDERAS, Joshua Dempsey Start 08/24/22 15:45:00 Stop 08/24/22 15:48:00 Anesthesia [...] By: Kathy Lund RN 08/24/22 15:52 [facility] Main OR Preoperative Recordo n 08-24-2022 Main OR Preoperative Record Holding Area Document Type FTURO Summary Primary Physician: Joshua PRESTON MD Finalized Date/Time: 08/24/22 14:57:36 Pt. Name: RACHEL MCGARRY/Sex: 1980 Female Med Rec #: [id number] Physician: Joshua PRESTON MD Financial #: [id number] Pt. Type: O Room/Bed: / Admit/Disch: 08/24/22 [...] No Pain Comment: na Skin Integrity Intact, [place], Warm, & Dry Vitals - EU Blood Pressure 145/96 Pulse 76 bpm Respirations 18 br/min SPO2 98 % Last Modified By: Natividad Green LPN 08/24/22 14:57:31 General Comments: Temp:35.8 Finalized By: Natividad Green LPN Document Signatures Signed By: Natividad Green LPN 08/24/22 14:57 [facility] Operative Reporton Operative Report Patient: [...] urine. The Urethra was dilated to: 30 Lithuanian w/ sounds. Devices Implanted: None. Removal: Cystoscope is removed, The patient tolerated it well. Postoperative Information Discharge: Patient is discharged home with antibiotic coverage, Follow up arranged, F/U six weeks. . [facility] Comment on above: Result Comment: Elec tronically Signed By: Joshua PRESTON MD\.br\Date and Time Signed: 08/24/22 15:53 EST Outpatient Surgery Discharge Instructionon 08-24-2022 Outpatient Surgery Discharge Instruction [id number]:127 [facility] Outpatient Surgery Discharge Instruction [place] [id number] Patient Discharge Instructions PERSON INFORMATION Name: RACHEL [...] Follow up: With: Address: When: Joshua PRESTON [address] [place] [address], [address], [place] [phone] Business (1) Within 6 weeks Comments: Call [...] have a fever over 100 degrees ZEFERINO Alonzo JAMIE L, have received the attached patient [...] to serve you. Thank you for choosing [facility] RAD - CT Reporton 08-06-2022 RAD - CT Report [id number]#1.00CD:127 [facility] RAD - Ultrasound Reporton RAD - Ultrasound Report [id number]#1.00CD:127 [facility] Physician Referralon 022 Physician Referral [id number]#[id number]:127 [facility] Patient Educationon 07-31-20 Patient Education Urology Urodynamic Testing What is [...] including vitamins, herbs, eye drops, creams, and cwbc-lfr-cltjhnk medicines. ? Whether you are or may [...] system diseases. (more content not included)... [facility] Urology Office/Clinic Noteon 07-31-2022 Urology [...] Contact Information Joshua PRESTON MD, URL [address] [facility] [address] [place] [address]- Additional Instructions: Cysto/ Urodynamics Patient Education Urodynamic [...] No qual (more content not included)... [facility] Comment on above: Result Comment: Elec tronically Signed By: Joshua PRESTON MD\.br\Date and Time Signed: 07/31/22 12:15 EDT\.br\Electronically Co-Signed By: Viji Johnson\.br\Date and Time Co-Signed: 07/31/22 12:12 EDT Basophils Auto (Bld) [#/Vol] Ordered By: Ajit Pettit on 07-08-2022 Basophils (Bld) [#/Vol] 0.1 10*3/uL 0.0-0.[address] [facility] Basophils/100 WBC Auto (Bld) Ordered By: Ajit Pettit on 07-08-2022 Basophils/100 WBC (Bld) 0.4 % . [facility] Blood hemoglobin measurement (mass/volume)Ordered By: Ajit Pettit on 07-08-2022 Hemoglobin (Bld) [Mass/Vol] 12.7 g/dL 11.8-15.[address] [facility] Blood leukocytes automated c ount (number/volume)Ordered By: Ajit Pettit on 07-08-2022 WBC (Bld) [#/Vol] 14.3 10*3/uL 4.5-11.0 [facility] Body fluid albumin measureme nt (mass/volume)Ordered By: Ajit Pettit on 07-08-2022 Albumin (Body fld) [Mass/Vol] 3.6 g/dL 3.2-5.[address] [facility] Creatinine and Glomerular fi ltration rate.predicted panel (S/P/Bld)Ordered By: Ajit Pettit on 07-08-2022 Creatinine [Mass/Vol] 0.66 mg/dL 0.44-1.03 [facility] Eosinophils Auto (Bld) [#/Vo l]Ordered By: Ajit Pettit on 07-08-2022 Eosinophils (Bld) [#/Vol] 0.2 10*3/uL 0.0-0.[address] [facility] Eosinophils/100 WBC Auto (Bl d)Ordered By: Ajit Pettit on 07-08-2022 Eosinophils/100 WBC (Bld) 1.2 % . [facility] Erythrocyte distribution wid th Auto (RBC) [Ratio]Ordered By: Ajit Pettit on 07-08-2022 Erythrocyte distribution width (RBC) [Ratio] 13.5 % 11.9-15.[address] [facility] Estimated glomerular filtrat ion rate (GFR) non- AmericanOrdered By: Ajit Pettit on 07-08-2022 GFR/1.73 sq M.predicted among non-blacks MDRD (S/P/Bld) [Vol rate/Area] > 60 mL/Min [facility] Globulin Calc (S) [Mass/Vol] Ordered By: Ajit Pettit on 07-08-2022 Globulin (S) [Mass/Vol] 2.4 g/dL [facility] Hematocrit Auto (Bld) [Volum e fraction]Ordered By: Ajit Pettit on 07-08-2022 Hematocrit (Bld) [Volume fraction] 38.9 % 34.0-46.[address] [facility] Laboratory - Hematology and Cell countsOrdered By: Ajit Pettit on 07-08-2022 Nucleated RBC/100 WBC (Bld) [Ratio] 0.0 % 0-0.[address] [facility] Lymphocytes Auto (Bld) [#/Vo l]Ordered By: Ajit Pettit on 07-08-2022 Lymphocytes (Bld) [#/Vol] 4.5 10*3/uL 1.00-4.[address] [facility] Lymphocytes/100 WBC Auto (Bl d)Ordered By: Ajit Pettit on 07-08-2022 Lymphocytes/100 WBC (Bld) 31.2 % . [facility] MCH Auto (RBC) [Entitic mass ]Ordered By: Ajit Pettit on 07-08-2022 MCH (RBC) [Entitic mass] 29.7 pg 24.7-34.[address] [facility] MCHC Auto (RBC) [Mass/Vol]Or dered By: Ajit Pettit on 07-08-2022 MCHC (RBC) [Mass/Vol] 32.7 g/dL 32.0-35.0 [facility] MCV Auto (RBC) [Entitic vol] Ordered By: Ajit Pettit on 07-08-2022 MCV (RBC) [Entitic vol] 90.8 fL 80-100 [facility] Monocytes Auto (Bld) [#/Vol] Ordered By: Ajit Pettit on 07-08-2022 Monocytes (Bld) [#/Vol] 1.1 10*3/uL 0.0-0.[address] [facility] Monocytes/100 WBC Auto (Bld) Ordered By: Ajit Pettit on 07-08-2022 Monocytes/100 WBC (Bld) 7.8 % . [facility] Neutrophils Auto (Bld) [#/Vo l]Ordered By: Ajit Pettit on 07-08-2022 Neutrophils (Bld) [#/Vol] 8.5 10*3/uL 1.8-7.[address] [facility] Neutrophils/100 WBC Auto (Bl d)Ordered By: Ajit Pettit on 07-08-2022 Neutrophils/100 WBC (Bld) 59.4 % . [facility] No Panel InformationOrdered By: Ajit Pettit on 07-08-2022 Estimated GFR () > 60 mL/Min [facility] Comment on above: GFR estimated refere nce range: According to KDOQI guidelines, <60 ml/min/1.73m2 is sufficient to diagnose a patient with chronic kidney disease. Pharmacy Creatinine Clearance (Chem N/A [facility] Platelet mean volume Auto (B ld) [Entitic vol]Ordered By: Ajit Pettit on 07-08-2022 Platelet mean volume (Bld) [Entitic vol] 8.3 fL 6.3-10.[address] [facility] Platelets Auto (Bld) [#/Vol] Ordered By: Ajit Pettit on 07-08-2022 Platelets (Bld) [#/Vol] 332 10*3/uL 150-[address] [facility] Protein [Mass/volume] in Ser um or PlasmaOrdered By: Ajit Pettit on 07-08-2022 Protein [Mass/Vol] 6.0 g/dL 6.1-7.9 [facility] RBC Auto (Bld) [#/Vol]Ordere d By: Ajit Pettit on 07-08-2022 RBC (Bld) [#/Vol] 4.29 10*6/uL 3.60-5.00 [facility] Serum or plasma alanine george otransferase measurement without P-5'-P (enzymatic activiOrdered By: Ajit Pettit on 07-08-2022 ALT No additional P-5'-P [Catalytic activity/Vol] 26 U/L 10-[address] [facility] Serum or plasma albumin/glob ulin mass ratioOrdered By: Ajit Pettit on 07-08-2022 Albumin/Globulin [Mass ratio] 1.5 {ratio} [facility] Serum or plasma alkaline lalo sphatase measurement (enzymatic activity/volume)Ordered By: Ajit Pettit on 07-08-2022 ALP [Catalytic activity/Vol] 46 U/L 32-[address] [facility] Serum or plasma anion gap de terminationOrdered By: Ajit Pettit on 07-08-2022 Anion gap [Moles/Vol] 15.1 mmol/L 6.0-15.0 [facility] Serum or plasma aspartate am inotransferase measurement (enzymatic activity/volume)Ordered By: Ajit Pettit on 07-08-2022 AST [Catalytic activity/Vol] 31 U/L 10-[address] [facility] Serum or plasma calcium ashwini urement (mass/volume)Ordered By: Ajit Pettit on 07-08-2022 Calcium [Mass/Vol] 9.3 mg/dL 8.2-10.2 [facility] Serum or plasma chloride jett surement (moles/volume)Ordered By: Ajit Pettit on 07-08-2022 Chloride [Moles/Vol] 101 mmol/L 95-114 [facility] Serum or plasma glucose ashwini urement (mass/volume)Ordered By: Ajit Pettit on 07-08-2022 Glucose [Mass/Vol] 129 mg/dL 70-100 [facility] Comment on above: ADA recommended refe rence rangeRandom Glucose Reference Range is dependent on time and content of last meal. Glucose of more than 200 mg/dL in a nonstressed, ambulatory subject supports the diagnosis of Diabetes Mellitus. Serum or plasma potassium me asurement (moles/volume)Ordered By: Ajit Pettit on 07-08-2022 Potassium [Moles/Vol] 5.0 mmol/L 3.5-5.1 [facility] Serum or plasma sodium measu rement (moles/volume)Ordered By: Ajit Pettit on 07-08-2022 Sodium [Moles/Vol] 135 mmol/L 136-146 [facility] Serum or plasma total biliru bin measurement (mass/volume)Ordered By: Ajit Pettit on 07-08-2022 Bilirubin [Mass/Vol] 0.5 mg/dL 0.3-1.2 [facility] Serum or plasma total carbon dioxide measurement (moles/volume)Ordered By: Ajit Pettit on 07-08-2022 CO2 [Moles/Vol] 23.9 mmol/L 22.0-30.0 [facility] Serum or plasma urea nitroge n measurement (mass/volume)Ordered By: Ajit Pettit on 07-08-2022 Urea nitrogen [Mass/Vol] 12 mg/dL 9-[address] [facility] TSH DL <= 0.005 mIU/L QnOrde red By: Ajit Pettit on 06-24-2022 TSH Qn 4.14 m[IU]/L 0.45-5.[address] [facility] Basophils Auto (Bld) [#/Vol] Ordered By: Ajit Pettit on 06-02-2022 Basophils (Bld) [#/Vol] 0.1 10*3/uL 0.0-0.[address] [facility] Basophils/100 WBC Auto (Bld) Ordered By: Ajit Pettit on 06-02-2022 Basophils/100 WBC (Bld) 0.9 % . [facility] Blood hemoglobin measurement (mass/volume)Ordered By: Ajit Pettit on 06-02-2022 Hemoglobin (Bld) [Mass/Vol] 12.9 g/dL 11.8-15.[address] [facility] Blood leukocytes automated c ount (number/volume)Ordered By: Ajit Pettit on 06-02-2022 WBC (Bld) [#/Vol] 16.8 10*3/uL 4.5-11.0 [facility] Body fluid albumin measureme nt (mass/volume)Ordered By: Ajit Pettit on 06-02-2022 Albumin (Body fld) [Mass/Vol] 3.5 g/dL 3.2-5.[address] [facility] Creatinine and Glomerular fi ltration rate.predicted panel (S/P/Bld)Ordered By: Ajit Pettit on 06-02-2022 Creatinine [Mass/Vol] 0.58 mg/dL 0.44-1.03 [facility] Eosinophils Auto (Bld) [#/Vo l]Ordered By: Ajit Pettit on 06-02-2022 Eosinophils (Bld) [#/Vol] 0.1 10*3/uL 0.0-0.[address] [facility] Eosinophils/100 WBC Auto (Bl d)Ordered By: Ajit Pettit on 06-02-2022 Eosinophils/100 WBC (Bld) 0.7 % . [facility] Erythrocyte distribution wid th Auto (RBC) [Ratio]Ordered By: Ajit Pettit on 06-02-2022 Erythrocyte distribution width (RBC) [Ratio] 13.3 % 11.9-15.[address] [facility] Estimated glomerular filtrat ion rate (GFR) non- AmericanOrdered By: Ajit Pettit on 06-02-2022 GFR/1.73 sq M.predicted among non-blacks MDRD (S/P/Bld) [Vol rate/Area] > 60 mL/Min [facility] Globulin Calc (S) [Mass/Vol] Ordered By: Ajit Pettit on 06-02-2022 Globulin (S) [Mass/Vol] 2.5 g/dL [facility] Hematocrit Auto (Bld) [Volum e fraction]Ordered By: Ajit Pettit on 06-02-2022 Hematocrit (Bld) [Volume fraction] 38.8 % 34.0-46.[address] [facility] Laboratory - Hematology and Cell countsOrdered By: Ajit Pettit on 06-02-2022 Nucleated RBC/100 WBC (Bld) [Ratio] 0.0 % 0-0.[address] [facility] Lymphocytes Auto (Bld) [#/Vo l]Ordered By: Ajit Pettit on 06-02-2022 Lymphocytes (Bld) [#/Vol] 3.4 10*3/uL 1.00-4.[address] [facility] Lymphocytes/100 WBC Auto (Bl d)Ordered By: Ajit Pettit on 06-02-2022 Lymphocytes/100 WBC (Bld) 20.3 % . [facility] MCH Auto (RBC) [Entitic mass ]Ordered By: Ajit Pettit on 06-02-2022 MCH (RBC) [Entitic mass] 30.3 pg 24.7-34.[address] [facility] MCHC Auto (RBC) [Mass/Vol]Or dered By: Ajit Pettit on 06-02-2022 MCHC (RBC) [Mass/Vol] 33.2 g/dL 32.0-35.0 [facility] MCV Auto (RBC) [Entitic vol] Ordered By: Ajit Millanc on 06-02-2022 MCV (RBC) [Entitic vol] 91.1 fL 80-100 [facility] Monocytes Auto (Bld) [#/Vol] Ordered By: Ajit Spasic on 06-02-2022 Monocytes (Bld) [#/Vol] 1.2 10*3/uL 0.0-0.[address] [facility] Monocytes/100 WBC Auto (Bld) Ordered By: Ajit Spasic on 06-02-2022 Monocytes/100 WBC (Bld) 7.2 % . [facility] Neutrophils Auto (Bld) [#/Vo l]Ordered By: Ajit Harrietsic on 06-02-2022 Neutrophils (Bld) [#/Vol] 11.9 10*3/uL 1.8-7.[address] [facility] Neutrophils/100 WBC Auto (Bl d)Ordered By: Ajitcristal Millanc on 06-02-2022 Neutrophils/100 WBC (Bld) 70.9 % . [facility] No Panel InformationOrdered By: Ajit Pettit on 06-02-2022 Estimated GFR () > 60 mL/Min [facility] Comment on above: GFR estimated refere nce range: According to KDOQI guidelines, <60 ml/min/1.73m2 is sufficient to diagnose a patient with chronic kidney disease. Pharmacy Creatinine Clearance (Chem N/A [facility] Platelet mean volume Auto (B ld) [Entitic vol]Ordered By: Ajit Pettit on 06-02-2022 Platelet mean volume (Bld) [Entitic vol] 9.2 fL 6.3-10.[address] [facility] Platelets Auto (Bld) [#/Vol] Ordered By: Ajit Lariossic on 06-02-2022 Platelets (Bld) [#/Vol] 313 10*3/uL 150-[address] [facility] Protein [Mass/volume] in Ser um or PlasmaOrdered By: Ajit Millanc on 06-02-2022 Protein [Mass/Vol] 6.0 g/dL 6.1-7.9 [facility] RBC Auto (Bld) [#/Vol]Ordere d By: Ajit Pettit on 06-02-2022 RBC (Bld) [#/Vol] 4.26 10*6/uL 3.60-5.00 [facility] Serum or plasma alanine george otransferase measurement without P-5'-P (enzymatic activiOrdered By: Ajit Pettit on 06-02-2022 ALT No additional P-5'-P [Catalytic activity/Vol] 20 U/L 10-[address] [facility] Serum or plasma albumin/glob ulin mass ratioOrdered By: Ajit Pettit on 06-02-2022 Albumin/Globulin [Mass ratio] 1.4 {ratio} [facility] Serum or plasma alkaline lalo sphatase measurement (enzymatic activity/volume)Ordered By: Ajit Pettit on 06-02-2022 ALP [Catalytic activity/Vol] 48 U/L 32-[address] [facility] Serum or plasma anion gap de terminationOrdered By: Ajit Pettit on 06-02-2022 Anion gap [Moles/Vol] 15.8 mmol/L 6.0-15.0 [facility] Serum or plasma aspartate am inotransferase measurement (enzymatic activity/volume)Ordered By: Ajit Pettit on 06-02-2022 AST [Catalytic activity/Vol] 21 U/L 10-[address] [facility] Serum or plasma calcium ashwini urement (mass/volume)Ordered By: Ajit Pettit on 06-02-2022 Calcium [Mass/Vol] 9.1 mg/dL 8.2-10.2 [facility] Serum or plasma chloride jett surement (moles/volume)Ordered By: Ajit Pettit on 06-02-2022 Chloride [Moles/Vol] 100 mmol/L 95-114 [facility] Serum or plasma glucose ashwini urement (mass/volume)Ordered By: Ajit Pettit on 06-02-2022 Glucose [Mass/Vol] 141 mg/dL 70-100 [facility] Comment on above: ADA recommended refe [...] on 06-02-2022 Potassium [Moles/Vol] 4.3 mmol/L 3.5-5.1 [facility] Serum or plasma sodium measu rement (moles/volume)Ordered By: Ajit Pettit on 06-02-2022 Sodium [Moles/Vol] 132 mmol/L 136-146 [facility] Serum or plasma total biliru bin measurement (mass/volume)Ordered By: Ajit Pettit on 06-02-2022 Bilirubin [Mass/Vol] 0.5 mg/dL 0.3-1.2 [facility] Serum or plasma total carbon dioxide measurement (moles/volume)Ordered By: Ajit Pettit on 06-02-2022 CO2 [Moles/Vol] 20.5 mmol/L 22.0-30.0 [facility] [facility] Serum or plasma urea nitroge n measurement (mass/volume)Ordered By: Ajit Pettit on 06-02-2022 Urea nitrogen [Mass/Vol] 12 mg/dL 9-[address] [facility] TSH DL <= 0.005 mIU/L QnOrde red By: Ajit Pettit on 06-02-2022 TSH Qn 2.06 m[IU]/L 0.45-5.[address] [facility] Basophils Auto (Bld) [#/Vol] Ordered By: Jasmin Velázquez on 05-27-2022 Basophils (Bld) [#/Vol] 0.1 10*3/uL 0.0-0.[address] [facility] Basophils/100 WBC Auto (Bld) Ordered By: Jasmin Velázquez on 05-27-2022 Basophils/100 WBC (Bld) 0.6 % . [facility] Blood hemoglobin measurement (mass/volume)Ordered By: Jasmin Velázquez on 05-27-2022 Hemoglobin (Bld) [Mass/Vol] 13.1 g/dL 11.8-15.[address] [facility] Blood leukocytes automated c ount (number/volume)Ordered By: Jasmin Velázquez on 05-27-2022 WBC (Bld) [#/Vol] 13.2 10*3/uL 4.5-11.[address] [facility] [address] biopsyOrdered By: Jasmin noel on 05-27-2022 Transferrin [Mass/Vol] 307 mg/dL 180-380 [facility] Eosinophils Auto (Bld) [#/Vo l]Ordered By: Jasmin Velázquez on 05-27-2022 Eosinophils (Bld) [#/Vol] 0.1 10*3/uL 0.0-0.[address] [facility] Eosinophils/100 WBC Auto (Bl d)Ordered By: Jamsin Velázquez on 05-27-2022 Eosinophils/100 WBC (Bld) 1.0 % . [facility] Erythrocyte distribution wid th Auto (RBC) [Ratio]Ordered By: Jasmin Velázquez on 05-27-2022 Erythrocyte distribution width (RBC) [Ratio] 13.5 % 11.9-15.[address] [facility] Ferritin [Mass/volume] in Se rum or PlasmaOrdered By: Jasmin Velázquez on 05-27-2022 Ferritin [Mass/Vol] 49.6 ng/mL 11-306.8 [facility] Hematocrit Auto (Bld) [Volum e fraction]Ordered By: Jasmin Velázquez on 05-27-2022 Hematocrit (Bld) [Volume fraction] 40.1 % 34.0-46.[address] [facility] Iron [Mass/volume] in Serum or PlasmaOrdered By: Jasmin Velázquez on 05-27-2022 Iron [Mass/Vol] 50 ug/dL 40-[address] [facility] Iron binding capacity [Mass/ volume] in Serum or PlasmaOrdered By: Jasmin Velázquez on 05-27-2022 Iron binding capacity [Mass/Vol] 430 ug/dL 255-[address] [facility] Iron saturation [Mass Fracti on] in Serum or PlasmaOrdered By: Jasmin Velázquez on 05-27-2022 Iron saturation [Mass fraction] 11.0 % 20-[address] [facility] Laboratory - Hematology and Cell countsOrdered By: Jasmin Velázquez on 05-27-2022 Nucleated RBC/100 WBC (Bld) [Ratio] 0.1 % 0-0.[address] [facility] Lymphocytes Auto (Bld) [#/Vo l]Ordered By: Jasmin Velázquez on 05-27-2022 Lymphocytes (Bld) [#/Vol] 3.3 10*3/uL 1.00-4.[address] [facility] Lymphocytes/100 WBC Auto (Bl d)Ordered By: Jasmin Velázquez on 05-27-2022 Lymphocytes/100 WBC (Bld) 24.8 % . [facility] MCH Auto (RBC) [Entitic mass ]Ordered By: Jasmin Velázquez on 05-27-2022 MCH (RBC) [Entitic mass] 30.0 pg 24.7-34.[address] [facility] MCHC Auto (RBC) [Mass/Vol]Or dered By: Jasmin Velázquez on 05-27-2022 MCHC (RBC) [Mass/Vol] 32.7 g/dL 32.0-35.0 [facility] MCV Auto (RBC) [Entitic vol] Ordered By: Jasmin Velázquez on 05-27-2022 MCV (RBC) [Entitic vol] 91.5 fL 80-100 [facility] Monocytes Auto (Bld) [#/Vol] Ordered By: Jasmin Velázquez on 05-27-2022 Monocytes (Bld) [#/Vol] 1.0 10*3/uL 0.0-0.[address] [facility] Monocytes/100 WBC Auto (Bld) Ordered By: Jasmin Velázquez on 05-27-2022 Monocytes/100 WBC (Bld) 7.6 % . [facility] Neutrophils Auto (Bld) [#/Vo l]Ordered By: Jasmin Velázquez on 05-27-2022 Neutrophils (Bld) [#/Vol] 8.7 10*3/uL 1.8-7.[address] [facility] Neutrophils/100 WBC Auto (Bl d)Ordered By: Jasmin Velázquez on 05-27-2022 Neutrophils/100 WBC (Bld) 66.0 % . [facility] No Panel InformationOrdered By: Jasmin Velázquez on 05-27-2022 BCR/abl See comment [facility] Comment on above: See report. Scanned copy available in EMR. Platelet mean volume Auto (B ld) [Entitic vol]Ordered By: Jasmin Velázquez on 05-27-2022 Platelet mean volume (Bld) [Entitic vol] 8.8 fL 6.3-10.[address] [facility] Platelets Auto (Bld) [#/Vol] Ordered By: Jasmin Velázquez on 05-27-2022 Platelets (Bld) [#/Vol] 284 10*3/uL 150-[address] [facility] RBC Auto (Bld) [#/Vol]Ordere d By: Jasmin Velázquez on 05-27-2022 RBC (Bld) [#/Vol] 4.38 10*6/uL 3.60-5.00 [facility] Basophils Auto (Bld) [#/Vol] Ordered By: Ajit Pettit on 05-07-2022 Basophils (Bld) [#/Vol] 0.1 10*3/uL 0.0-0.[address] [facility] Basophils/100 WBC Auto (Bld) Ordered By: Ajit Pettit on 05-07-2022 Basophils/100 WBC (Bld) 0.6 % . [facility] Blood hemoglobin measurement (mass/volume)Ordered By: Ajit Pettit on 05-07-2022 Hemoglobin (Bld) [Mass/Vol] 13.4 g/dL 11.8-15.[address] [facility] Blood leukocytes automated c ount (number/volume)Ordered By: Ajit Pettit on 05-07-2022 WBC (Bld) [#/Vol] 16.2 10*3/uL 4.5-11.0 [facility] Eosinophils Auto (Bld) [#/Vo l]Ordered By: Ajit Pettit on 05-07-2022 Eosinophils (Bld) [#/Vol] 0.1 10*3/uL 0.0-0.[address] [facility] Eosinophils/100 WBC Auto (Bl d)Ordered By: Ajit Pettit on 05-07-2022 Eosinophils/100 WBC (Bld) 0.9 % . [facility] Erythrocyte distribution wid th Auto (RBC) [Ratio]Ordered By: Ajit Millanc on 05-07-2022 Erythrocyte distribution width (RBC) [Ratio] 13.6 % 11.9-15.[address] [facility] Hematocrit Auto (Bld) [Volum e fraction]Ordered By: Ajit Lariossic on 05-07-2022 Hematocrit (Bld) [Volume fraction] 40.5 % 34.0-46.[address] [facility] Laboratory - Hematology and Cell countsOrdered By: Ajit Millanc on 05-07-2022 Nucleated RBC/100 WBC (Bld) [Ratio] 0.0 % 0-0.[address] [facility] Lymphocytes Auto (Bld) [#/Vo l]Ordered By: Ajit Lariossic on 05-07-2022 Lymphocytes (Bld) [#/Vol] 4.7 10*3/uL 1.00-4.[address] [facility] Lymphocytes/100 WBC Auto (Bl d)Ordered By: Ajit Lariossic on 05-07-2022 Lymphocytes/100 WBC (Bld) 28.9 % . [facility] MCH Auto (RBC) [Entitic mass ]Ordered By: Ajit Millanc on 05-07-2022 MCH (RBC) [Entitic mass] 30.7 pg 24.7-34.[address] [facility] MCHC Auto (RBC) [Mass/Vol]Or dered By: Ajit Spasic on 05-07-2022 MCHC (RBC) [Mass/Vol] 33.2 g/dL 32.0-35.0 [facility] MCV Auto (RBC) [Entitic vol] Ordered By: Ajit Lariossic on 05-07-2022 MCV (RBC) [Entitic vol] 92.5 fL 80-100 [facility] Monocytes Auto (Bld) [#/Vol] Ordered By: Ajit Spasic on 05-07-2022 Monocytes (Bld) [#/Vol] 1.1 10*3/uL 0.0-0.[address] [facility] Monocytes/100 WBC Auto (Bld) Ordered By: Ajit Spasic on 05-07-2022 Monocytes/100 WBC (Bld) 6.8 % . [facility] Neutrophils Auto (Bld) [#/Vo l]Ordered By: Ajit Pettit on 05-07-2022 Neutrophils (Bld) [#/Vol] 10.2 10*3/uL 1.8-7.[address] [facility] Neutrophils/100 WBC Auto (Bl d)Ordered By: Ajit Pettit on 05-07-2022 Neutrophils/100 WBC (Bld) 62.8 % . [facility] No Panel InformationOrdered By: Ajit Pettit on 05-07-2022 Platelet Estimate Normal Normal [facility] Platelet Morphology Comment Normal Normal [facility] Platelet mean volume Auto (B ld) [Entitic vol]Ordered By: Ajit Pettit on 05-07-2022 Platelet mean volume (Bld) [Entitic vol] 8.0 fL 6.3-10.[address] [facility] Platelets Auto (Bld) [#/Vol] Ordered By: Ajit Pettit on 05-07-2022 Platelets (Bld) [#/Vol] 369 10*3/uL 150-[address] [facility] RBC Auto (Bld) [#/Vol]Ordere d By: Ajit Pettit on 05-07-2022 RBC (Bld) [#/Vol] 4.38 10*6/uL 3.60-5.00 [facility] RBC morphologyOrdered By: Shelbi Pettit on 05-07-2022 RBC morphology finding Nom (Bld) Normal [facility] Bacterial blood cultureOrder ed By: Rod Alvarado on 05-06-2022 Bacteria identified Cx Nom (Bld) NO GROWTH [address] [facility] Bacteria identified Cx Nom (Bld) NO GROWTH [address] [facility] Bacterial blood cultureOrder ed By: Ajit Pettit on 05-06-2022 Bacteria identified Cx Nom (Bld) NO GROWTH [address] [facility] Urine culture routineOrdered By: Ajit Pettit on 05-02-2022 Bacteria identified Cx Nom (U) [address] [facility] Activated partial thrombopla stin time (aPTT) in platelet poor plasma by coagulation aOrdered By: Rod Alvarado on 05-01-2022 aPTT Coag (PPP) [Time] 29.2 s 25.1-36.5 [facility] Automated epithelial cells c ount in urine sediment (number/area)Ordered By: Rod Alvarado on 05-01-2022 Epithelial cells Auto (Urine sed) [#/Area] 5-9 [HPF] 0-[address] [facility] Automated erythrocytes count in urine sediment (number/area)Ordered By: Rod Alvarado on 05-01-2022 RBC Auto (Urine sed) [#/Area] 1-2 [HPF] 0-[address] [facility] Automated leukocytes count i n urine sediment (number/area)Ordered By: Rod Alvarado on 05-01-2022 WBC Auto (Urine sed) [#/Area] 1-2 [HPF] 0-[address] [facility] Basophils Auto (Bld) [#/Vol] Ordered By: Rod Alvarado on 05-01-2022 Basophils (Bld) [#/Vol] 0.2 10*3/uL 0.0-0.[address] [facility] Basophils Auto (Bld) [#/Vol] Ordered By: Ajit Pettit on 05-01-2022 Basophils (Bld) [#/Vol] 0.1 10*3/uL 0.0-0.[address] [facility] Basophils/100 WBC Auto (Bld) Ordered By: Rod Alvarado on 05-01-2022 Basophils/100 WBC (Bld) 1.0 % . [facility] Basophils/100 WBC Auto (Bld) Ordered By: Ajit Pettit on 05-01-2022 Basophils/100 WBC (Bld) 0.7 % . [facility] Bilirubin Auto test strip Ql (U)Ordered By: Rod Alvarado on 05-01-2022 Bilirubin Ql (U) 1+ Negative [facility] Blood hemoglobin measurement (mass/volume)Ordered By: Rod Alvarado on 05-01-2022 Hemoglobin (Bld) [Mass/Vol] 13.1 g/dL 11.8-15.[address] [facility] Blood hemoglobin measurement (mass/volume)Ordered By: Ajit Pettit on 05-01-2022 Hemoglobin (Bld) [Mass/Vol] 12.9 g/dL 11.8-15.[address] [facility] Blood leukocytes automated c ount (number/volume)Ordered By: Rod Alvarado on 05-01-2022 WBC (Bld) [#/Vol] 15.9 10*3/uL 4.5-11.0 [facility] Blood leukocytes automated c ount (number/volume)Ordered By: Ajit Pettit on 05-01-2022 WBC (Bld) [#/Vol] 14.7 10*3/uL 4.5-11.0 [facility] Body fluid albumin measureme nt (mass/volume)Ordered By: Ajit Pettit on 05-01-2022 Albumin (Body fld) [Mass/Vol] 3.6 g/dL 3.2-5.[address] [facility] Creatinine and Glomerular fi ltration rate.predicted panel (S/P/Bld)Ordered By: Rod Alvarado on 05-01-2022 Creatinine [Mass/Vol] 0.58 mg/dL 0.44-1.03 [facility] Creatinine and Glomerular fi ltration rate.predicted panel (S/P/Bld)Ordered By: Ajit Pettit on 05-01-2022 Creatinine [Mass/Vol] 0.58 mg/dL 0.44-1.03 [facility] Eosinophils Auto (Bld) [#/Vo l]Ordered By: Rod Alvarado on 05-01-2022 Eosinophils (Bld) [#/Vol] 0.2 10*3/uL 0.0-0.[address] [facility] Eosinophils Auto (Bld) [#/Vo l]Ordered By: Ajit Pettit on 05-01-2022 Eosinophils (Bld) [#/Vol] 0.1 10*3/uL 0.0-0.[address] [facility] Eosinophils/100 WBC Auto (Bl d)Ordered By: Rod Alvarado on 05-01-2022 Eosinophils/100 WBC (Bld) 1.0 % . [facility] Eosinophils/100 WBC Auto (Bl d)Ordered By: Ajit Pettit on 05-01-2022 Eosinophils/100 WBC (Bld) 0.9 % . [facility] Erythrocyte distribution wid th Auto (RBC) [Ratio]Ordered By: Rod Alvarado on 05-01-2022 Erythrocyte distribution width (RBC) [Ratio] 13.6 % 11.9-15.[address] [facility] Erythrocyte distribution wid th Auto (RBC) [Ratio]Ordered By: Ajit Pettit on 05-01-2022 Erythrocyte distribution width (RBC) [Ratio] 13.6 % 11.9-15.[address] [facility] Estimated glomerular filtrat ion rate (GFR) non- AmericanOrdered By: Rod Alvarado on 05-01-2022 GFR/1.73 sq M.predicted among non-blacks MDRD (S/P/Bld) [Vol rate/Area] > 60 mL/Min [facility] Estimated glomerular filtrat ion rate (GFR) non- AmericanOrdered By: Ajit Pettit on 05-01-2022 GFR/1.73 sq M.predicted among non-blacks MDRD (S/P/Bld) [Vol rate/Area] > 60 mL/Min [facility] Globulin Calc (S) [Mass/Vol] Ordered By: Ajit Pettit on 05-01-2022 Globulin (S) [Mass/Vol] 2.6 g/dL [facility] Hematocrit Auto (Bld) [Volum e fraction]Ordered By: Rod Alvarado on 05-01-2022 Hematocrit (Bld) [Volume fraction] 39.0 % 34.0-46.[address] [facility] Hematocrit Auto (Bld) [Volum e fraction]Ordered By: Ajit Pettit on 05-01-2022 Hematocrit (Bld) [Volume fraction] 39.0 % 34.0-46.[address] [facility] Ketones Auto test strip (U) [Mass/Vol]Ordered By: Rod Alvarado on 05-01-2022 Ketones (U) [Mass/Vol] Trace Negative [facility] Laboratory - Chemistry and C hemistry - challengeOrdered By: Rod Alvarado on 05-01-2022 Lipase [Catalytic activity/Vol] 37.0 U/L 22-[address] [facility] Laboratory - CoagulationOrde red By: Rod Alvarado on 05-01-2022 PT Coag (PPP) [Time] 9.6 s 9.0-12.9 [facility] Laboratory - Hematology and Cell countsOrdered By: Rod Alvarado on 05-01-2022 Nucleated RBC/100 WBC (Bld) [Ratio] 0.0 % 0-0.[address] [facility] Laboratory - Hematology and Cell countsOrdered By: Ajit Pettit on 05-01-2022 Nucleated RBC/100 WBC (Bld) [Ratio] 0.0 % 0-0.[address] [facility] Lymphocytes Auto (Bld) [#/Vo l]Ordered By: Rod Alvarado on 05-01-2022 Lymphocytes (Bld) [#/Vol] 4.3 10*3/uL 1.00-4.[address] [facility] Lymphocytes Auto (Bld) [#/Vo l]Ordered By: Ajit Pettit on 05-01-2022 Lymphocytes (Bld) [#/Vol] 3.6 10*3/uL 1.00-4.[address] [facility] Lymphocytes/100 WBC Auto (Bl d)Ordered By: Rod Alvarado on 05-01-2022 Lymphocytes/100 WBC (Bld) 26.9 % . [facility] Lymphocytes/100 WBC Auto (Bl d)Ordered By: Ajit Pettit on 05-01-2022 Lymphocytes/100 WBC (Bld) 24.8 % . [facility] MCH Auto (RBC) [Entitic mass ]Ordered By: Rod Alvarado on 05-01-2022 MCH (RBC) [Entitic mass] 30.5 pg 24.7-34.[address] [facility] MCH Auto (RBC) [Entitic mass ]Ordered By: Ajit Pettit on 05-01-2022 MCH (RBC) [Entitic mass] 30.5 pg 24.7-34.[address] [facility] MCHC Auto (RBC) [Mass/Vol]Or dered By: Rod Alvarado on 05-01-2022 MCHC (RBC) [Mass/Vol] 33.5 g/dL 32.0-35.0 [facility] MCHC Auto (RBC) [Mass/Vol]Or dered By: Ajit Pettit on 05-01-2022 MCHC (RBC) [Mass/Vol] 32.9 g/dL 32.0-35.0 [facility] MCV Auto (RBC) [Entitic vol] Ordered By: Rod Alvarado on 05-01-2022 MCV (RBC) [Entitic vol] 91.0 fL 80-100 [facility] MCV Auto (RBC) [Entitic vol] Ordered By: Ajit Lariossic on 05-01-2022 MCV (RBC) [Entitic vol] 92.6 fL 80-100 [facility] Monocytes Auto (Bld) [#/Vol] Ordered By: Rod Alvarado on 05-01-2022 Monocytes (Bld) [#/Vol] 1.1 10*3/uL 0.0-0.[address] [facility] Monocytes Auto (Bld) [#/Vol] Ordered By: Ajit Millanc on 05-01-2022 Monocytes (Bld) [#/Vol] 1.1 10*3/uL 0.0-0.[address] [facility] Monocytes/100 WBC Auto (Bld) Ordered By: Rod Alvarado on 05-01-2022 Monocytes/100 WBC (Bld) 6.7 % . [facility] Monocytes/100 WBC Auto (Bld) Ordered By: Ajit Millanc on 05-01-2022 Monocytes/100 WBC (Bld) 7.2 % . [facility] Neutrophils Auto (Bld) [#/Vo l]Ordered By: Rod Alvarado on 05-01-2022 Neutrophils (Bld) [#/Vol] 10.3 10*3/uL 1.8-7.[address] [facility] Neutrophils Auto (Bld) [#/Vo l]Ordered By: Ajit Millanc on 05-01-2022 Neutrophils (Bld) [#/Vol] 9.8 10*3/uL 1.8-7.[address] [facility] Neutrophils/100 WBC Auto (Bl d)Ordered By: Rod Alvarado on 05-01-2022 Neutrophils/100 WBC (Bld) 64.4 % . [facility] Neutrophils/100 WBC Auto (Bl d)Ordered By: Ajit Millanc on 05-01-2022 Neutrophils/100 WBC (Bld) 66.4 % . [facility] No Panel InformationOrdered By: Rod Alvarado on 05-01-2022 Estimated GFR () > 60 mL/Min [facility] Comment on above: GFR estimated refere nce range: According to KDOQI guidelines, <60 ml/min/1.73m2 is sufficient to diagnose a patient with chronic kidney disease. Pharmacy Creatinine Clearance (Chem 128.[address] [facility] No Panel InformationOrdered By: Ajit Pettit on 05-01-2022 Estimated GFR () > 60 mL/Min [facility] Comment on above: GFR estimated refere nce range: According to KDOQI guidelines, <60 ml/min/1.73m2 is sufficient to diagnose a patient with chronic kidney disease. Pharmacy Creatinine Clearance (Chem N/A [facility] Platelet mean volume Auto (B ld) [Entitic vol]Ordered By: Rod Alvarado on 05-01-2022 Platelet mean volume (Bld) [Entitic vol] 7.6 fL 6.3-10.[address] [facility] Platelet mean volume Auto (B ld) [Entitic vol]Ordered By: Ajit Pettit on 05-01-2022 Platelet mean volume (Bld) [Entitic vol] 8.1 fL 6.3-10.[address] [facility] Platelet poor plasma interna tional normalized ratio (INR) by coagulation assay (relatOrdered By: Rod Alvarado on 05-01-2022 INR Coag (PPP) [Relative time] 0.9 {INR} [facility] Comment on above: INR Therapeutic [...] 05-01-2022 Platelets (Bld) [#/Vol] 310 10*3/uL 150-[address] [facility] Platelets Auto (Bld) [#/Vol] Ordered By: Ajit Pettit on 05-01-2022 Platelets (Bld) [#/Vol] 284 10*3/uL 150-[address] [facility] Protein Auto test strip (U) [Mass/Vol]Ordered By: Rod Alvarado on 05-01-2022 Protein (U) [Mass/Vol] Negative Negative [facility] Protein [Mass/volume] in Ser um or PlasmaOrdered By: Ajit Pettit on 05-01-2022 Protein [Mass/Vol] 6.2 g/dL 6.1-7.9 [facility] RBC Auto (Bld) [#/Vol]Ordere d By: Rod Alvarado on 05-01-2022 RBC (Bld) [#/Vol] 4.29 10*6/uL 3.60-5.00 [facility] RBC Auto (Bld) [#/Vol]Ordere d By: Ajit Pettit on 05-01-2022 RBC (Bld) [#/Vol] 4.22 10*6/uL 3.60-5.00 [facility] Serum or plasma alanine george otransferase measurement without P-5'-P (enzymatic activiOrdered By: Ajit Pettit on 05-01-2022 ALT No additional P-5'-P [Catalytic activity/Vol] 17 U/L 10-[address] [facility] Serum or plasma albumin/glob ulin mass ratioOrdered By: Ajit Pettit on 05-01-2022 Albumin/Globulin [Mass ratio] 1.4 {ratio} [facility] Serum or plasma alkaline lalo sphatase measurement (enzymatic activity/volume)Ordered By: Ajit Pettit on 05-01-2022 ALP [Catalytic activity/Vol] 52 U/L 32-[address] [facility] Serum or plasma aspartate am inotransferase measurement (enzymatic activity/volume)Ordered By: Ajit Pettit on 05-01-2022 AST [Catalytic activity/Vol] 19 U/L 10-[address] [facility] Serum or plasma calcium ashwini urement (mass/volume)Ordered By: Rod Alvarado on 05-01-2022 Calcium [Mass/Vol] 9.0 mg/dL 8.2-10.2 [facility] Serum or plasma calcium ashwini urement (mass/volume)Ordered By: Ajit Pettit on 05-01-2022 Calcium [Mass/Vol] 9.2 mg/dL 8.2-10.2 [facility] Serum or plasma chloride jett surement (moles/volume)Ordered By: Rod Alvarado on 05-01-2022 Chloride [Moles/Vol] 101 mmol/L 95-114 [facility] Serum or plasma chloride jett surement (moles/volume)Ordered By: Ajit Pettit on 05-01-2022 Chloride [Moles/Vol] 100 mmol/L 95-114 [facility] Serum or plasma glucose ashwini urement (mass/volume)Ordered By: Rod Alvarado on 05-01-2022 Glucose [Mass/Vol] 110 mg/dL 70-100 [facility] Comment on above: ADA recommended refe [...] on 05-01-2022 Glucose [Mass/Vol] 117 mg/dL 70-100 [facility] Comment on above: ADA recommended refe [...] on 05-01-2022 Potassium [Moles/Vol] 4.4 mmol/L 3.5-5.1 [facility] Serum or plasma potassium me asurement (moles/volume)Ordered By: Ajit Pettit on 05-01-2022 Potassium [Moles/Vol] 4.4 mmol/L 3.5-5.1 [facility] Serum or plasma sodium measu rement (moles/volume)Ordered By: Rod Alvarado on 05-01-2022 Sodium [Moles/Vol] 135 mmol/L 136-146 [facility] Serum or plasma sodium measu rement (moles/volume)Ordered By: Ajit Pettit on 05-01-2022 Sodium [Moles/Vol] 133 mmol/L 136-146 [facility] Serum or plasma total biliru bin measurement (mass/volume)Ordered By: Rod Alvarado on 05-01-2022 Bilirubin [Mass/Vol] 0.7 mg/dL 0.3-1.2 [facility] Serum or plasma total biliru bin measurement (mass/volume)Ordered By: Ajit Pettit on 05-01-2022 Bilirubin [Mass/Vol] 0.4 mg/dL 0.3-1.2 [facility] Serum or plasma total carbon dioxide measurement (moles/volume)Ordered By: Rod Alvarado on 05-01-2022 CO2 [Moles/Vol] 25.9 mmol/L 22.0-30.0 [facility] Serum or plasma total carbon dioxide measurement (moles/volume)Ordered By: Ajit Pettit on 05-01-2022 CO2 [Moles/Vol] 23.1 mmol/L 22.0-30.0 [facility] Serum or plasma urea nitroge n measurement (mass/volume)Ordered By: Rod Alvarado on 05-01-2022 Urea nitrogen [Mass/Vol] 11 mg/dL 06-[address] [facility] Serum or plasma urea nitroge n measurement (mass/volume)Ordered By: Ajit Pettit on 05-01-2022 Urea nitrogen [Mass/Vol] 14 mg/dL 06-[address] [facility] Urine appearanceOrdered By: Rod Alvarado on 05-01-2022 Appearance (U) Clear Clear [facility] Urine bacteria detection by automated methodOrdered By: Rod Alvarado on 05-01-2022 Bacteria Auto Ql (U) 1+ None Seen [facility] Urine colorOrdered By: Shady Alvarado on 05-01-2022 Color (U) Yellow Yellow [facility] Urine glucose measurement by automated test strip (mass/volume)Ordered By: Rod Alvarado on 05-01-2022 Glucose Auto test strip (U) [Mass/Vol] Normal mg/dL Normal [facility] Urine hemoglobin detection b y automated test stripOrdered By: Rod Alvarado on 05-01-2022 Hemoglobin Auto test strip Ql (U) Negative Negative [facility] Urine lactic acid measuremen tOrdered By: Rod Alvarado on 05-01-2022 Lactate (U) [Moles/Vol] 1.7 mmol/L 0.5-2.2 [facility] Urine lactic acid measuremen tOrdered By: Ajit Pettit on 05-01-2022 Lactate (U) [Moles/Vol] 2.5 mmol/L 0.5-2.2 F [facility] Comment on above: Results called at 1022 on 05/01/22 Results calledat 102 2 on 05/01/22 Urine leukocyte esterase det ection by automated test stripOrdered By: Rod Alvarado on 05-01-2022 Leukocyte esterase Auto test strip Ql (U) 2+ Negative [facility] Urine nitrite detection by a utomated test stripOrdered By: Rod Alvarado on 05-01-2022 Nitrite Auto test strip Ql (U) Negative Negative [facility] Urobilinogen Auto test strip (U) [Mass/Vol]Ordered By: Rod Alvarado on 05-01-2022 Urobilinogen (U) [Mass/Vol] Normal mg/dL Normal [facility] pH Auto test strip (U)Ordere d By: Rod Alvarado on 05-01-2022 pH (U) 1.030 [pH] 1.001-1.[address] [facility] pH (U) 6.0 [pH] 5.0-9.[address] [facility] Basophils Auto (Bld) [#/Vol] Ordered By: Ajit Pettit on 04-30-2022 Basophils (Bld) [#/Vol] 0.2 10*3/uL 0.0-0.[address] [facility] Basophils/100 WBC Auto (Bld) Ordered By: Ajit Pettit on 04-30-2022 Basophils/100 WBC (Bld) 0.9 % . F [facility] Blood hemoglobin measurement (mass/volume)Ordered By: Ajit Pettit on 04-30-2022 Hemoglobin (Bld) [Mass/Vol] 13.9 g/dL 11.8-15.[address] [facility] Blood leukocytes automated c ount (number/volume)Ordered By: Ajit Pettit on 04-30-2022 WBC (Bld) [#/Vol] 19.7 10*3/uL 4.5-11.0 [facility] Body fluid albumin measureme nt (mass/volume)Ordered By: Ajit Pettit on 04-30-2022 Albumin (Body fld) [Mass/Vol] 4.1 g/dL 3.2-5.[address] [facility] CT biopsyOrdered By: Ajit corrales on 04-30-2022 Transferrin [Mass/Vol] 352 mg/dL 180-380 [facility] Cholesterol [Mass/volume] in Serum or PlasmaOrdered By: Ajit Pettit on 04-30-2022 Cholesterol [Mass/Vol] 260 mg/dL 140-200 [facility] Comment on above: Chol less than 200 m g/dl low risk Chol 201-239 mg/dl borderline risk Chol 240 mg/dl and greater high risk Chol less than 200 m g/dl low riskChol 201-239 mg/dl borderline riskChol 240 mg/dl and greater high risk Cholesterol in LDL Calc [Mas s/Vol]Ordered By: Ajit Pettit on 04-30-2022 Cholesterol in LDL [Mass/Vol] 134 mg/dL 0-[address] [facility] Comment on above: LDL ATP [...] 04-30-2022 Cholesterol in VLDL [Mass/Vol] 68 mg/dL [facility] Creatinine and Glomerular fi ltration rate.predicted panel (S/P/Bld)Ordered By: Ajit Pettit on 04-30-2022 Creatinine [Mass/Vol] 0.56 mg/dL 0.44-1.03 [facility] Eosinophils Auto (Bld) [#/Vo l]Ordered By: Ajit Pettit on 04-30-2022 Eosinophils (Bld) [#/Vol] 0.2 10*3/uL 0.0-0.[address] [facility] Eosinophils/100 WBC Auto (Bl d)Ordered By: Ajit Pettit on 04-30-2022 Eosinophils/100 WBC (Bld) 1.0 % . [facility] Erythrocyte distribution wid th Auto (RBC) [Ratio]Ordered By: Ajit Pettit on 04-30-2022 Erythrocyte distribution width (RBC) [Ratio] 13.5 % 11.9-15.[address] [facility] Estimated glomerular filtrat ion rate (GFR) non- AmericanOrdered By: Ajit Pettit on 04-30-2022 GFR/1.73 sq M.predicted among non-blacks MDRD (S/P/Bld) [Vol rate/Area] > 60 mL/Min [facility] Globulin Calc (S) [Mass/Vol] Ordered By: Ajit Pettit on 04-30-2022 Globulin (S) [Mass/Vol] 2.9 g/dL [facility] Hematocrit Auto (Bld) [Volum e fraction]Ordered By: Ajit Pettit on 04-30-2022 Hematocrit (Bld) [Volume fraction] 42.9 % 34.0-46.[address] [facility] Iron [Mass/volume] in Serum or PlasmaOrdered By: Ajit Pettit on 04-30-2022 Iron [Mass/Vol] 51 ug/dL 40-[address] [facility] Iron binding capacity [Mass/ volume] in Serum or PlasmaOrdered By: Ajit Pettit on 04-30-2022 Iron binding capacity [Mass/Vol] 493 ug/dL 255-[address] [facility] Iron saturation [Mass Fracti on] in Serum or PlasmaOrdered By: Ajit Pettit on 04-30-2022 Iron saturation [Mass fraction] 10.0 % 20-[address] [facility] Laboratory - Chemistry and C hemistry - challengeOrdered By: Ajit Pettit on 04-30-2022 Cobalamin (Vitamin B12) [Mass/Vol] 472 pg/mL 180-[address] [facility] Laboratory - Hematology and Cell countsOrdered By: Ajit Pettit on 04-30-2022 Nucleated RBC/100 WBC (Bld) [Ratio] 0.2 % 0-0.[address] [facility] Lymphocytes Auto (Bld) [#/Vo l]Ordered By: Ajit Pettit on 04-30-2022 Lymphocytes (Bld) [#/Vol] 4.1 10*3/uL 1.00-4.[address] [facility] Lymphocytes/100 WBC Auto (Bl d)Ordered By: Ajit Pettit on 04-30-2022 Lymphocytes/100 WBC (Bld) 20.8 % . [facility] MCH Auto (RBC) [Entitic mass ]Ordered By: Ajit Pettit on 04-30-2022 MCH (RBC) [Entitic mass] 30.0 pg 24.7-34.[address] [facility] MCHC Auto (RBC) [Mass/Vol]Or dered By: Ajit Pettit on 04-30-2022 MCHC (RBC) [Mass/Vol] 32.4 g/dL 32.0-35.0 [facility] MCV Auto (RBC) [Entitic vol] Ordered By: Ajit Pettit on 04-30-2022 MCV (RBC) [Entitic vol] 92.7 fL 80-100 [facility] Monocytes Auto (Bld) [#/Vol] Ordered By: Ajit Pettit on 04-30-2022 Monocytes (Bld) [#/Vol] 1.3 10*3/uL 0.0-0.[address] [facility] Monocytes/100 WBC Auto (Bld) Ordered By: Ajit Pettit on 04-30-2022 Monocytes/100 WBC (Bld) 6.8 % . [facility] Neutrophils Auto (Bld) [#/Vo l]Ordered By: Ajit Pettit on 04-30-2022 Neutrophils (Bld) [#/Vol] 13.9 10*3/uL 1.8-7.[address] [facility] Neutrophils/100 WBC Auto (Bl d)Ordered By: Ajit Pettit on 04-30-2022 Neutrophils/100 WBC (Bld) 70.5 % . [facility] No Panel InformationOrdered By: Ajit Pettit on 04-30-2022 25-Hydroxy Vitamin D Total 19.9 ng/mL 30-[address] [facility] Comment on above: VITAMIN D [...] 96(7):1911-30. Estimated GFR () > 60 mL/Min [facility] Comment on above: GFR estimated refere nce range: According to KDOQI guidelines, <60 ml/min/1.73m2 is sufficient to diagnose a patient with chronic kidney disease. Pharmacy Creatinine Clearance (Chem N/A [facility] Valproic Acid (Depakene) Level 59.8 ug/mL 50.0-100.[address] [facility] Comment on above: Last dose: - Platelet mean volume Auto (B ld) [Entitic vol]Ordered By: Ajit Pettit on 04-30-2022 Platelet mean volume (Bld) [Entitic vol] 8.7 fL 6.3-10.[address] [facility] Platelets Auto (Bld) [#/Vol] Ordered By: Ajit Pettit on 04-30-2022 Platelets (Bld) [#/Vol] 257 10*3/uL 150-[address] [facility] Protein [Mass/volume] in Ser um or PlasmaOrdered By: Ajit Pettit on 04-30-2022 Protein [Mass/Vol] 7.0 g/dL 6.1-7.9 [facility] RBC Auto (Bld) [#/Vol]Ordere d By: Ajit Pettit on 04-30-2022 RBC (Bld) [#/Vol] 4.62 10*6/uL 3.60-5.00 [facility] Serum or plasma alanine george otransferase measurement without P-5'-P (enzymatic activiOrdered By: Ajit Pettit on 04-30-2022 ALT No additional P-5'-P [Catalytic activity/Vol] 20 U/L 10-[address] [facility] Serum or plasma albumin/glob ulin mass ratioOrdered By: Ajit Pettit on 04-30-2022 Albumin/Globulin [Mass ratio] 1.4 {ratio} [facility] Serum or plasma alkaline lalo sphatase measurement (enzymatic activity/volume)Ordered By: Ajit Pettit on 04-30-2022 ALP [Catalytic activity/Vol] 54 U/L 32-[address] [facility] Serum or plasma aspartate am inotransferase measurement (enzymatic activity/volume)Ordered By: Ajit Pettit on 04-30-2022 AST [Catalytic activity/Vol] 22 U/L 10-[address] [facility] Serum or plasma calcium ashwini urement (mass/volume)Ordered By: Ajit Pettit on 04-30-2022 Calcium [Mass/Vol] 9.4 mg/dL 8.2-10.2 [facility] Serum or plasma chloride jett surement (moles/volume)Ordered By: Ajit Pettit on 04-30-2022 Chloride [Moles/Vol] 102 mmol/L 95-114 [facility] Serum or plasma glucose ashwini urement (mass/volume)Ordered By: Ajit Pettit on 04-30-2022 Glucose [Mass/Vol] 115 mg/dL 70-100 [facility] Comment on above: ADA recommended refe [...] Cholesterol in HDL [Mass/Vol] 57 mg/dL 35-[address] [facility] Comment on above: HDL CHOL ATP-III CLA SSIFICATION Cardiovascular Risk HDL > or equal to 60 mg/dL LOW HDL < 40 mg/dL HIGH HDL CHOL ATP-III CLA SSIFICATION Cardiovascular RiskHDL > or equal to 60 mg/dL LOWHDL < 40 mg/dL HIGH Serum or plasma potassium me asurement (moles/volume)Ordered By: Ajit Pettit on 04-30-2022 Potassium [Moles/Vol] 4.8 mmol/L 3.5-5.1 [facility] Serum or plasma sodium measu rement (moles/volume)Ordered By: Ajit Pettit on 04-30-2022 Sodium [Moles/Vol] 135 mmol/L 136-146 [facility] Serum or plasma total biliru bin measurement (mass/volume)Ordered By: Ajit Pettit on 04-30-2022 Bilirubin [Mass/Vol] 0.2 mg/dL 0.3-1.2 [facility] Serum or plasma total carbon dioxide measurement (moles/volume)Ordered By: Ajit Pettit on 04-30-2022 CO2 [Moles/Vol] 24.2 mmol/L 22.0-30.0 [facility] Serum or plasma total choles terol/high density lipoprotein (HDL) cholesterol mass ratOrdered By: Ajit Pettit on 04-30-2022 Cholesterol.total/Suellen sterol in HDL [Mass ratio] 4.6 {ratio} <5.[address] [facility] Serum or plasma urea nitroge n measurement (mass/volume)Ordered By: Ajit Pettit on 04-30-2022 Urea nitrogen [Mass/Vol] 12 mg/dL 9-[address] [facility] TSH DL <= 0.005 mIU/L QnOrde red By: Ajit Pettit on 04-30-2022 TSH Qn 2.89 m[IU]/L 0.45-5.[address] [facility] Triglyceride [Mass/volume] i n Serum or PlasmaOrdered By: Ajit Pettit on 04-30-2022 Triglyceride [Mass/Vol] 344 mg/dL 35-149 [facility] Comment on above: TRIG ATP III [...] 01-21-2021 Basophils (Bld) [#/Vol] 0.1 10*3/uL 0.0-0.2 [facility] Basophils/100 WBC Auto (Bld) on 01-21-2021 Basophils/100 WBC (Bld) 1.0 % [facility] Blood hemoglobin measurement (mass/volume)on 01-21-2021 Hemoglobin (Bld) [Mass/Vol] 13.0 g/dL 11.8-15.4 [facility] Blood leukocytes automated c ount (number/volume)on 01-21-2021 WBC (Bld) [#/Vol] 13.2 10*3/uL 4.5-11.0 [facility] Body fluid albumin measureme nt (mass/volume)on 01-21-2021 Albumin (Body fld) [Mass/Vol] 3.7 g/dL 3.2-5.5 [facility] Creatinine and Glomerular fi ltration rate.predicted panel (S/P/Bld)on 01-21-2021 Creatinine [Mass/Vol] 0.67 mg/dL 0.44-1.03 [facility] Eosinophils Auto (Bld) [#/Vo l]on 01-21-2021 Eosinophils (Bld) [#/Vol] 0.1 10*3/uL 0.0-0.45 [facility] Eosinophils/100 WBC Auto (Bl d)on 01-21-2021 Eosinophils/100 WBC (Bld) 0.8 % [facility] Erythrocyte distribution wid th Auto (RBC) [Ratio]on 01-21-2021 Erythrocyte distribution width (RBC) [Ratio] 13.1 % 11.9-15.3 [facility] Estimated glomerular filtrat ion rate (GFR) non- Americanon 01-21-2021 GFR/1.73 sq M.predicted among non-blacks MDRD (S/P/Bld) [Vol rate/Area] > 60 mL/Min [facility] Globulin Calc (S) [Mass/Vol] on 01-21-2021 Globulin (S) [Mass/Vol] 2.7 g/dL [facility] Hematocrit Auto (Bld) [Volum e fraction]on 01-21-2021 Hematocrit (Bld) [Volume fraction] 38.1 % 34.0-46.4 [facility] Laboratory - Chemistry and C hemistry - challengeon 01-21-2021 Cobalamin (Vitamin B12) [Mass/Vol] 341 pg/mL 180-914 [facility] Laboratory - Hematology and Cell countson 01-21-2021 Nucleated RBC/100 WBC (Bld) [Ratio] 0.2 % 0-0.5 [facility] Lymphocytes Auto (Bld) [#/Vo l]on 01-21-2021 Lymphocytes (Bld) [#/Vol] 3.9 10*3/uL 1.00-4.8 [facility] Lymphocytes/100 WBC Auto (Bl d)on 01-21-2021 Lymphocytes/100 WBC (Bld) 29.4 % [facility] MCH Auto (RBC) [Entitic mass ]on 01-21-2021 MCH (RBC) [Entitic mass] 30.6 pg 24.7-34.3 [facility] MCHC Auto (RBC) [Mass/Vol]on 01-21-2021 MCHC (RBC) [Mass/Vol] 34.1 g/dL 32.0-35.0 [facility] MCV Auto (RBC) [Entitic vol] on 01-21-2021 MCV (RBC) [Entitic vol] 89.6 fL 80-[address] [facility] Monocytes Auto (Bld) [#/Vol] on 01-21-2021 Monocytes (Bld) [#/Vol] 1.1 10*3/uL 0.0-0.8 [facility] Monocytes/100 WBC Auto (Bld) on 01-21-2021 Monocytes/100 WBC (Bld) 8.6 % [facility] Neutrophils Auto (Bld) [#/Vo l]on 01-21-2021 Neutrophils (Bld) [#/Vol] 8.0 10*3/uL 1.8-7.7 [facility] Neutrophils/100 WBC Auto (Bl d)on 01-21-2021 Neutrophils/100 WBC (Bld) 60.2 % [facility] No Panel Informationon 01-21 25-Hydroxy Vitamin D Total 25.5 ng/mL 30-100 [facility] Comment on above: VITAMIN D STATUS 25( [place])VITAMIN D RANGE (ng/mL) Deficient <20 Insufficient 20 to <30Sufficient 30 to 100Reference: Jovanni MF,Dominique NC, Gillian NINA, et al. Evaluation,treatment, and prevention of vitamin D deficiency; an Endocrine Society clinical practice guideline. JCEM. 2010; 96(7):1911-30. Estimated GFR () > 60 mL/Min [facility] Comment on above: GFR estimated refere nce range: According to KDOQI guidelines, <60 ml/min/1.73m2 is sufficient to diagnose a patient with chronic kidney disease. Pharmacy Creatinine Clearance (Chem N/A [facility] Valproic Acid (Depakene) Level 74.3 ug/mL 50.0-100.0 [facility] Comment on above: Last dose: - Platelet mean volume Auto (B ld) [Entitic vol]on 01-21-2021 Platelet mean volume (Bld) [Entitic vol] 9.1 fL 6.3-10.7 [facility] Platelets Auto (Bld) [#/Vol] on 01-21-2021 Platelets (Bld) [#/Vol] 261 10*3/uL 150-450 [facility] Protein [Mass/volume] in Ser um or Plasmaon 01-21-2021 Protein [Mass/Vol] 6.4 g/dL 6.1-7.9 [facility] RBC Auto (Bld) [#/Vol]on RBC (Bld) [#/Vol] 4.25 10*6/uL 3.60-5.00 [facility] Serum or plasma alanine george otransferase measurement without P-5'-P (enzymatic activion 01-21-2021 ALT No additional P-5'-P [Catalytic activity/Vol] 14 U/L 10-60 [facility] Serum or plasma albumin/glob ulin mass ratioon 01-21-2021 Albumin/Globulin [Mass ratio] 1.4 {ratio} [facility] Serum or plasma alkaline laol sphatase measurement (enzymatic activity/volume)on 01-21-2021 ALP [Catalytic activity/Vol] 50 U/L 32-92 [facility] Serum or plasma aspartate am inotransferase measurement (enzymatic activity/volume)on 01-21-2021 AST [Catalytic activity/Vol] 17 U/L 10-42 [facility] Serum or plasma calcium ashwini urement (mass/volume)on 01-21-2021 Calcium [Mass/Vol] 9.5 mg/dL 8.2-10.2 [facility] Serum or plasma chloride jett surement (moles/volume)on 01-21-2021 Chloride [Moles/Vol] 96 mmol/L 95-114 [facility] Serum or plasma glucose ashwini urement (mass/volume)on 01-21-2021 Glucose [Mass/Vol] 117 mg/dL 70-100 [facility] Comment on above: ADA recommended refe rence rangeRandom Glucose Reference Range is dependent on time and content of last meal. Glucose of more than 200 mg/dL in a nonstressed, ambulatory subject supports the diagnosis of Diabetes Mellitus. Serum or plasma potassium me asurement (moles/volume)on 01-21-2021 Potassium [Moles/Vol] 4.3 mmol/L 3.5-5.1 [facility] Serum or plasma sodium measu rement (moles/volume)on 01-21-2021 Sodium [Moles/Vol] 132 mmol/L 136-146 [facility] Serum or plasma total biliru bin measurement (mass/volume)on 01-21-2021 Bilirubin [Mass/Vol] 0.3 mg/dL 0.3-1.2 [facility] Serum or plasma total carbon dioxide measurement (moles/volume)on 01-21-2021 CO2 [Moles/Vol] 23.6 mmol/L 22.0-30.0 [facility] Serum or plasma urea nitroge n measurement (mass/volume)on 01-21-2021 Urea nitrogen [Mass/Vol] 13 mg/dL 9-23 [facility] Albumin [Mass/volume] in Ser um or Plasmaon 11-05-2020 Albumin [Mass/Vol] 4.4 g/dL 3.2-5.5 [facility] Automated basophil %on 11-05 Basophils/100 WBC (Bld) 0.7 % [facility] Automated basophil counton 0 11-05-2020 Basophils (Bld) [#/Vol] 0.1 10*3/uL 0.0-0.2 [facility] Automated blood lymphocyte c ount (number/volume)on 11-05-2020 Lymphocytes (Bld) [#/Vol] 3.5 10*3/uL 1.00-4.8 [facility] Automated blood lymphocyte c ount as percentage of total leukocyteson 11-05-2020 Lymphocytes/100 WBC (Bld) 26.0 % [facility] Automated blood monocyte cou nton 11-05-2020 Monocytes (Bld) [#/Vol] 1.2 10*3/uL 0.0-0.8 [facility] Automated blood platelet cou nt (count/volume)on 11-05-2020 Platelets (Bld) [#/Vol] 317 10*3/uL 150-450 [facility] Automated blood platelet jett n volume measurementon 11-05-2020 Platelet mean volume (Bld) [Entitic vol] 8.2 fL 6.3-10.7 [facility] Automated eosinophil %on Eosinophils/100 WBC (Bld) 0.5 % [facility] Automated eosinophil counton 11-05-2020 Eosinophils (Bld) [#/Vol] 0.1 10*3/uL 0.0-0.45 [facility] Automated erythrocyte distri bution width ratioon 11-05-2020 Erythrocyte distribution width (RBC) [Ratio] 13.0 % 11.9-15.3 [facility] Automated erythrocyte mean c orpuscular hemoglobin (mass per erythrocyte)on 11-05-2020 MCH (RBC) [Entitic mass] 30.2 pg 24.7-34.3 [facility] Automated erythrocyte mean c orpuscular hemoglobin concentration measurement (mass/volon 11-05-2020 MCHC (RBC) [Mass/Vol] 33.9 g/dL 32.0-35.0 [facility] Automated erythrocyte mean c orpuscular volumeon 11-05-2020 MCV (RBC) [Entitic vol] 89.1 fL 80-[address] [facility] Automated monocyte %on 11-05 Monocytes/100 WBC (Bld) 8.8 % [facility] Automated neutrophil %on Neutrophils/100 WBC (Bld) 64.0 % [facility] Blood erythrocytes automated count (number/volume)on 11-05-2020 RBC (Bld) [#/Vol] 4.92 10*6/uL 3.60-5.00 [facility] Blood hemoglobin measurement (mass/volume)on 11-05-2020 Hemoglobin (Bld) [Mass/Vol] 14.9 g/dL 11.8-15.4 [facility] Blood leukocytes automated c ount (number/volume)on 11-05-2020 WBC (Bld) [#/Vol] 13.4 10*3/uL 4.5-11.0 [facility] Blood neutrophil count by au tomated method (number/volume)on 11-05-2020 Neutrophils (Bld) [#/Vol] 8.6 10*3/uL 1.8-7.7 [facility] Estimated glomerular filtrat ion rate (GFR) non- Americanon 11-05-2020 GFR/1.73 sq M predicted among non-blacks MDRD (S/P/Bld) [Vol rate/Area] mL/min/{1.73_m2} [facility] Hematocrit [Volume Fraction] of Blood by Automated counton 11-05-2020 Hematocrit (Bld) [Volume fraction] 43.8 % 34.0-46.4 [facility] Otheron 11-05-2020 GFR/1.73 sq M.predicted MDRD (S/P/Bld) [Vol rate/Area] mL/min/{1.73_m2} [facility] Comment on above: GFR estimated refere nce range: According to KDOQI guidelines, <60 ml/min/1.73m2 is sufficient to diagnose a patient with chronic kidney disease. Nucleated RBC/100 WBC (Bld) [Ratio] 0.2 % 0-0.5 [facility] Pharmacy Creatinine Clearance (Chem N/A [facility] Protein [Mass/volume] in Ser um or Plasmaon 11-05-2020 Protein [Mass/Vol] 7.2 g/dL 6.1-7.9 [facility] Serum globulin measurement b y calculation (mass/volume)on 11-05-2020 Globulin (S) [Mass/Vol] 2.8 g/dL [facility] Serum glutamate decarboxylas e 65 antibody assay (units/volume)on 11-05-2020 Glutamate decarboxylase 65 Ab Qn (S) <5.0 U/mL [facility] Comment on above: Performed at: - [facility] [id number] Director: Ana Lee MD, Phone: [phone] Serum nuclear antibody titer on 11-05-2020 Nuclear Ab (S) [Titer] Negative Fi [facility] Comment on above: Negative <1:80 Borde rline 1:80 Positive >1:80Performed at: [employer] [id number] Director: Daniel Wen PhD, Phone: [phone] Nuclear Ab (S) [Titer] Negative Fi [facility] Comment on above: Negative <1:80 Borde rline 1:80 Positive >1:80Performed at: [employer] [id number] Director: Daniel Wen PhD, Phone: [phone] Serum or plasma alanine george otransferase measurement without P-5'-P (enzymatic activion 11-05-2020 ALT No additional P-5'-P [Catalytic activity/Vol] 22 U/L 10-60 [facility] Serum or plasma albumin/glob ulin mass ratioon 11-05-2020 Albumin/Globulin [Mass ratio] 1.6 {ratio} [facility] Serum or plasma alkaline lalo sphatase measurement (enzymatic activity/volume)on 11-05-2020 ALP [Catalytic activity/Vol] 60 U/L 32-92 [facility] Serum or plasma aspartate am inotransferase measurement (enzymatic activity/volume)on 11-05-2020 AST [Catalytic activity/Vol] 23 U/L 10-42 [facility] Serum or plasma calcium ashwini urement (mass/volume)on 11-05-2020 Calcium [Mass/Vol] 9.6 mg/dL 8.2-10.2 [facility] Serum or plasma chloride jett surement (moles/volume)on 11-05-2020 Chloride [Moles/Vol] 93 mmol/L 95-114 [facility] Serum or plasma creatinine m easurement with calculation of estimated glomerular filtron 11-05-2020 Creatinine [Mass/Vol] 0.62 mg/dL 0.44-1.03 [facility] Serum or plasma glucose ashwini urement (mass/volume)on 11-05-2020 Glucose [Mass/Vol] 82 mg/dL 70-100 [facility] Comment on above: ADA recommended refe rence rangeRandom Glucose Reference Range is dependent on time and content of last meal. Glucose of more than 200 mg/dL in a nonstressed, ambulatory subject supports the diagnosis of Diabetes Mellitus. Serum or plasma potassium me asurement (moles/volume)on 11-05-2020 Potassium [Moles/Vol] 4.3 mmol/L 3.5-5.1 [facility] Serum or plasma sodium measu rement (moles/volume)on 11-05-2020 Sodium [Moles/Vol] 128 mmol/L 136-146 [facility] Serum or plasma total biliru bin measurement (mass/volume)on 11-05-2020 Bilirubin [Mass/Vol] 0.6 mg/dL 0.3-1.2 [facility] Serum or plasma total carbon dioxide measurement (moles/volume)on 11-05-2020 CO2 [Moles/Vol] 22.8 mmol/L 22.0-30.0 [facility] Serum or plasma urea nitroge n measurement (mass/volume)on 11-05-2020 Urea nitrogen [Mass/Vol] 10 mg/dL 9-23 [facility] Automated basophil %on 10-22 Basophils/100 WBC (Bld) 0.6 % [facility] Automated basophil counton 0 10-22-2020 Basophils (Bld) [#/Vol] 0.1 10*3/uL 0.0-0.2 [facility] Automated blood lymphocyte c ount (number/volume)on 10-22-2020 Lymphocytes (Bld) [#/Vol] 2.8 10*3/uL 1.00-4.8 [facility] Automated blood lymphocyte c ount as percentage of total leukocyteson 10-22-2020 Lymphocytes/100 WBC (Bld) 23.6 % [facility] Automated blood monocyte cou nton 10-22-2020 Monocytes (Bld) [#/Vol] 1.0 10*3/uL 0.0-0.8 [facility] Automated blood platelet cou nt (count/volume)on 10-22-2020 Platelets (Bld) [#/Vol] 292 10*3/uL 150-450 [facility] Automated blood platelet jett n volume measurementon 10-22-2020 Platelet mean volume (Bld) [Entitic vol] 9.4 fL 6.3-10.7 [facility] Automated eosinophil %on Eosinophils/100 WBC (Bld) 0.5 % [facility] Automated eosinophil counton 10-22-2020 Eosinophils (Bld) [#/Vol] 0.1 10*3/uL 0.0-0.45 [facility] Automated erythrocyte distri bution width ratioon 10-22-2020 Erythrocyte distribution width (RBC) [Ratio] 12.8 % 11.9-15.3 [facility] Automated erythrocyte mean c orpuscular hemoglobin (mass per erythrocyte)on 10-22-2020 MCH (RBC) [Entitic mass] 29.5 pg 24.7-34.3 [facility] Automated erythrocyte mean c orpuscular hemoglobin concentration measurement (mass/volon 10-22-2020 MCHC (RBC) [Mass/Vol] 32.9 g/dL 32.0-35.0 [facility] Automated erythrocyte mean c orpuscular volumeon 10-22-2020 MCV (RBC) [Entitic vol] 89.6 fL 80-[address] [facility] Automated monocyte %on 10-22 Monocytes/100 WBC (Bld) 8.7 % [facility] Automated neutrophil %on Neutrophils/100 WBC (Bld) 66.6 % [facility] Blood erythrocytes automated count (number/volume)on 10-22-2020 RBC (Bld) [#/Vol] 4.90 10*6/uL 3.60-5.00 [facility] [facility] hemoglobin measurement (mass/volume)on 10-22-2020 Hemoglobin (Bld) [Mass/Vol] 14.5 g/dL 11.8-15.4 [facility] Blood leukocytes automated c ount (number/volume)on 10-22-2020 WBC (Bld) [#/Vol] 12.1 10*3/uL 3.8-11.6 [facility] Blood neutrophil count by au tomated method (number/volume)on 10-22-2020 Neutrophils (Bld) [#/Vol] 8.0 10*3/uL 1.8-7.7 [facility] Body fluid albumin measureme nt (mass/volume)on 10-22-2020 Albumin (Body fld) [Mass/Vol] 4.2 g/dL 3.2-5.5 [facility] Estimated glomerular filtrat ion rate (GFR) non- Americanon 10-22-2020 GFR/1.73 sq M predicted among non-blacks MDRD (S/P/Bld) [Vol rate/Area] mL/min/{1.73_m2} [facility] Hematocrit [Volume Fraction] of Blood by Automated counton 10-22-2020 Hematocrit (Bld) [Volume fraction] 43.9 % 34.0-46.4 [facility] Hematologyon 10-22-2020 Platelets (Bld) [#/Vol] Normal Normal [facility] Otheron 10-22-2020 25-Hydroxy Vitamin D Total 13.3 ng/mL 30-100 [facility] Comment on above: VITAMIN D STATUS 25( [place])VITAMIN D RANGE (ng/mL) Deficient <20 Insufficient 20 to <30Sufficient 30 to 100Reference: Jovanni MF,Dominique NC, Gillian NINA, et al. Evaluation,treatment, and prevention of vitamin D deficiency; an Endocrine Society clinical practice guideline. JCEM. 2010; 96(7):1911-30. Cobalamin (Vitamin B12) [Mass/Vol] 438 pg/mL 180-914 [facility] GFR/1.73 sq M.predicted MDRD (S/P/Bld) [Vol rate/Area] mL/min/{1.73_m2} [facility] Comment on above: GFR estimated refere nce range: According to KDOQI guidelines, <60 ml/min/1.73m2 is sufficient to diagnose a patient with chronic kidney disease. Nucleated RBC/100 WBC (Bld) [Ratio] 0.0 % 0-0.5 [facility] Creatinine Clearance (Chem N/A [facility] Platelet Morphology Comment Normal Normal [facility] Valproic Acid (Depakene) Level 108.9 ug/mL 50.0-100.0 [facility] Comment on above: Last dose: - Protein [Mass/volume] in Ser um or Plasmaon 10-22-2020 Protein [Mass/Vol] 7.1 g/dL 6.1-7.9 [facility] RBC morphologyon 10-22-2020 RBC morphology finding Nom (Bld) Normal [facility] Serum globulin measurement b y calculation (mass/volume)on 10-22-2020 Globulin (S) [Mass/Vol] 2.9 g/dL [facility] Serum or plasma alanine george otransferase measurement without P-5'-P (enzymatic activion 10-22-2020 ALT No additional P-5'-P [Catalytic activity/Vol] 13 U/L 10-60 [facility] Serum or plasma albumin/glob ulin mass ratioon 10-22-2020 Albumin/Globulin [Mass ratio] 1.4 {ratio} [facility] Serum or plasma alkaline lalo sphatase measurement (enzymatic activity/volume)on 10-22-2020 ALP [Catalytic activity/Vol] 53 U/L 32-92 [facility] Serum or plasma aspartate am inotransferase measurement (enzymatic activity/volume)on 10-22-2020 AST [Catalytic activity/Vol] 15 U/L 10-42 [facility] Serum or plasma calcium ashwini urement (mass/volume)on 10-22-2020 Calcium [Mass/Vol] 9.6 mg/dL 8.2-10.2 [facility] Serum or plasma chloride jett surement (moles/volume)on 10-22-2020 Chloride [Moles/Vol] 96 mmol/L 95-114 [facility] Serum or plasma creatinine m easurement with calculation of estimated glomerular filtron 10-22-2020 Creatinine [Mass/Vol] 0.54 mg/dL 0.44-1.03 [facility] Serum or plasma glucose ashwini urement (mass/volume)on 10-22-2020 Glucose [Mass/Vol] 96 mg/dL 70-100 [facility] Comment on above: ADA recommended refe rence rangeRandom Glucose Reference Range is dependent on time and content of last meal. Glucose of more than 200 mg/dL in a nonstressed, ambulatory subject supports the diagnosis of Diabetes Mellitus. Serum or plasma potassium me asurement (moles/volume)on 10-22-2020 Potassium [Moles/Vol] 4.7 mmol/L 3.5-5.1 [facility] Serum or plasma sodium measu rement (moles/volume)on 10-22-2020 Sodium [Moles/Vol] 130 mmol/L 136-146 [facility] Serum or plasma total biliru bin measurement (mass/volume)on 10-22-2020 Bilirubin [Mass/Vol] 0.3 mg/dL 0.3-1.2 [facility] Serum or plasma total carbon dioxide measurement (moles/volume)on 10-22-2020 CO2 [Moles/Vol] 22.5 mmol/L 22.0-30.0 [facility] Serum or plasma urea nitroge n measurement (mass/volume)on 10-22-2020 Urea nitrogen [Mass/Vol] 5 mg/dL 9-23 [facility] Automated basophil %on 09-23 Basophils/100 WBC (Bld) 0.7 % [facility] Automated basophil counton 1 11-24-2019 Basophils (Bld) [#/Vol] 0.1 10*3/uL 0.0-0.2 [facility] Automated blood lymphocyte c ount (number/volume)on 09-23-2020 Lymphocytes (Bld) [#/Vol] 3.3 10*3/uL 1.00-4.8 [facility] Automated blood lymphocyte c ount as percentage of total leukocyteson 09-23-2020 Lymphocytes/100 WBC (Bld) 27.3 % [facility] Automated blood monocyte cou nton 09-23-2020 Monocytes (Bld) [#/Vol] 1.3 10*3/uL 0.0-0.8 [facility] Automated blood platelet cou nt (count/volume)on 09-23-2020 Platelets (Bld) [#/Vol] 299 10*3/uL 150-450 [facility] Automated blood platelet jett n volume measurementon 09-23-2020 Platelet mean volume (Bld) [Entitic vol] 8.3 fL 6.3-10.7 [facility] Automated eosinophil %on Eosinophils/100 WBC (Bld) 0.7 % [facility] Automated eosinophil counton 09-23-2020 Eosinophils (Bld) [#/Vol] 0.1 10*3/uL 0.0-0.45 [facility] Automated erythrocyte distri bution width ratioon 09-23-2020 Erythrocyte distribution width (RBC) [Ratio] 12.8 % 11.9-15.3 [facility] Automated erythrocyte mean c orpuscular hemoglobin (mass per erythrocyte)on 09-23-2020 MCH (RBC) [Entitic mass] 29.8 pg 24.7-34.3 [facility] Automated erythrocyte mean c orpuscular hemoglobin concentration measurement (mass/volon 09-23-2020 MCHC (RBC) [Mass/Vol] 33.4 g/dL 32.0-35.0 [facility] Automated erythrocyte mean c orpuscular volumeon 09-23-2020 MCV (RBC) [Entitic vol] 89.3 fL 80-[address] [facility] Automated monocyte %on 09-23 Monocytes/100 WBC (Bld) 10.8 % [facility] Automated neutrophil %on Neutrophils/100 WBC (Bld) 60.5 % [facility] Blood erythrocytes automated count (number/volume)on 09-23-2020 RBC (Bld) [#/Vol] 4.72 10*6/uL 3.60-5.00 [facility] Blood hemoglobin measurement (mass/volume)on 09-23-2020 Hemoglobin (Bld) [Mass/Vol] 14.1 g/dL 11.8-15.4 [facility] Blood leukocytes automated c ount (number/volume)on 09-23-2020 WBC (Bld) [#/Vol] 11.9 10*3/uL 3.8-11.6 [facility] Blood neutrophil count by au tomated method (number/volume)on 09-23-2020 Neutrophils (Bld) [#/Vol] 7.2 10*3/uL 1.8-7.7 [facility] Body fluid albumin measureme nt (mass/volume)on 09-23-2020 Albumin (Body fld) [Mass/Vol] 3.9 g/dL 3.2-5.5 [facility] Estimated glomerular filtrat ion rate (GFR) non- Americanon 09-23-2020 GFR/1.73 sq M predicted among non-blacks MDRD (S/P/Bld) [Vol rate/Area] mL/min/{1.73_m2} [facility] Hematocrit [Volume Fraction] of Blood by Automated counton 09-23-2020 Hematocrit (Bld) [Volume fraction] 42.1 % 34.0-46.4 [facility] Otheron 09-23-2020 25-Hydroxy Vitamin D Total 17.0 ng/mL 30-100 [facility] Comment on above: VITAMIN D STATUS 25( [place])VITAMIN D RANGE (ng/mL) Deficient <20 Insufficient 20 to <30Sufficient 30 to 100Reference: Jovanni MF,Dominique NC, Gillian NINA, et al. Evaluation,treatment, and prevention of vitamin D deficiency; an Endocrine Society clinical practice guideline. JCEM. 2010; 96(7):1911-30. GFR/1.73 sq M.predicted MDRD (S/P/Bld) [Vol rate/Area] mL/min/{1.73_m2} [facility] Comment on above: GFR estimated refere nce range: According to KDOQI guidelines, <60 ml/min/1.73m2 is sufficient to diagnose a patient with chronic kidney disease. Nucleated RBC/100 WBC (Bld) [Ratio] 0.1 % 0-0.5 [facility] Creatinine Clearance (Chem N/A [facility] Valproic Acid (Depakene) Level 45.9 ug/mL 50.0-100.0 [facility] Comment on above: Last dose: - Protein [Mass/volume] in Ser um or Plasmaon 09-23-2020 Protein [Mass/Vol] 6.7 g/dL 6.1-7.9 [facility] Serum globulin measurement b y calculation (mass/volume)on 09-23-2020 Globulin (S) [Mass/Vol] 2.8 g/dL [facility] Serum or plasma alanine george otransferase measurement without P-5'-P (enzymatic activion 09-23-2020 ALT No additional P-5'-P [Catalytic activity/Vol] 15 U/L 10-60 [facility] Serum or plasma albumin/glob ulin mass ratioon 09-23-2020 Albumin/Globulin [Mass ratio] 1.4 {ratio} [facility] Serum or plasma alkaline lalo sphatase measurement (enzymatic activity/volume)on 09-23-2020 ALP [Catalytic activity/Vol] 52 U/L 32-92 [facility] Serum or plasma aspartate am inotransferase measurement (enzymatic activity/volume)on 09-23-2020 AST [Catalytic activity/Vol] 16 U/L 10-42 [facility] Serum or plasma calcium ashwini urement (mass/volume)on 09-23-2020 Calcium [Mass/Vol] 9.2 mg/dL 8.2-10.2 [facility] Serum or plasma chloride jett surement (moles/volume)on 09-23-2020 Chloride [Moles/Vol] 102 mmol/L 95-114 [facility] Serum or plasma creatinine m easurement with calculation of estimated glomerular filtron 09-23-2020 Creatinine [Mass/Vol] 0.67 mg/dL 0.44-1.03 [facility] Serum or plasma glucose ashwini urement (mass/volume)on 09-23-2020 Glucose [Mass/Vol] 122 mg/dL 70-100 [facility] Comment on above: ADA recommended refe rence rangeRandom Glucose Reference Range is dependent on time and content of last meal. Glucose of more than 200 mg/dL in a nonstressed, ambulatory subject supports the diagnosis of Diabetes Mellitus. Serum or plasma potassium me asurement (moles/volume)on 09-23-2020 Potassium [Moles/Vol] 4.8 mmol/L 3.5-5.1 [facility] Serum or plasma sodium measu rement (moles/volume)on 09-23-2020 Sodium [Moles/Vol] 136 mmol/L 136-146 [facility] Serum or plasma total biliru bin measurement (mass/volume)on 09-23-2020 Bilirubin [Mass/Vol] 0.2 mg/dL 0.3-1.2 [facility] Serum or plasma total carbon dioxide measurement (moles/volume)on 09-23-2020 CO2 [Moles/Vol] 23.0 mmol/L 22.0-30.0 [facility] Serum or plasma urea nitroge n measurement (mass/volume)on 09-23-2020 Urea nitrogen [Mass/Vol] 5 mg/dL 06-26 [facility] Lab - Other Lab Resultson Lab - Other Lab Results [id number][facility] Summary[facility] 06-27-2019 Coding Summary CODING DATE: 019 [facility] STATUS: Home PAYOR: Medicaid HMO ADMIT [...] Piña Revised Date Saved: 06/27/2019 12:43 pm [facility] Provider Orderson 06-27-2019 Provider Orders [id number]#1.00[facility] Provider Orders [id number]#1.00[facility] .Auto Diff 1on 06-26-2019 Auto [place]row % 9 % Normal 10-15 [facility] Comment on above: Performed By: #### 1 [id number], [id number] #### [facility] (DEFAULT) [address] [place] [address] Baso Abs# 0.0 x10 Normal 0.0-0.2 [facility] Comment on above: Performed By: #### 1 [id number] #### [facility] (DEFAULT) [address] [place] [address] Basophils/100 WBC (Bld) 0.3 % Normal 0.2-2.0 [facility] Comment on above: Performed By: #### 1 [id number], [id number] #### [facility] (DEFAULT) [address] [place] [address] Eos Abs# 0.0 x10 Normal 0.0-0.4 [facility] Comment on above: Performed By: #### 1 [id number], [id number] #### [facility] (DEFAULT) [address] [place] [address]20[address] Eosinophils/100 WBC (Bld) 0.4 % Low 0.9-4.0 [facility] Comment on above: Performed By: #### 1 [id number], [id number] #### [facility] (DEFAULT) [address] [place] [address] Lymphocytes (Bld) [#/Vol] 3.7 x10 High 1.3-2.9 [facility] Comment on above: Performed By: #### 1 [id number], [id number] #### [facility] (DEFAULT) [address] [place] [address] 15798 Lymphocytes/100 WBC (Bld) 29 % Normal 14-48 [facility] Comment on above: Performed By: #### 1 [id number], [id number] #### [facility] (DEFAULT) [address] [place] [address] Morrow Abs# 1.2 x10 High 0.0-0.8 [facility] Comment on above: Performed By: #### 1 [id number], [id number] #### [facility] (DEFAULT) [address] [place] [address] 46757 Neut Abs# 7.7 x10 Normal 1.5-9.2 [facility] Comment on above: Performed By: #### 1 [id number], [id number] #### [facility] (DEFAULT) [address] [place] [address] 24256 Neutrophils/100 WBC (Bld) 61 % Normal 44-88 [facility] Comment on above: Performed By: #### 1 [id number], [id number] #### [facility] (DEFAULT) [address] [place] [address] 00955 CBC w/ Auto Diffon 9 Erythrocyte distribution width (RBC) [Ratio] 14.0 % Normal 11.5-15.0 [facility] Comment on above: Performed By: #### 1 [id number], [id number] #### [facility] (DEFAULT) [address] [place] [address] Hematocrit (Bld) [Volume fraction] 44.8 % High 33.7-40.4 [facility] Comment on above: Performed By: #### 1 [id number], [id number] #### [facility] (DEFAULT) [address] [place] [address] 35081 Hemoglobin (Bld) [Mass/Vol] 15.1 g/dL Normal 11.3-15.9 [facility] Comment on above: Performed By: #### 1 [id number] #### [facility] (DEFAULT) [address] [place] [address] Man Diff? Auto Normal [facility] Comment on above: Performed By: #### 1 [id number], [id number] #### [facility] (DEFAULT) [address] [place] [address] 41047 MCH (RBC) [Entitic mass] 30 pg Normal 24-34 [facility] Comment on above: Performed By: #### 1 [id number], [id number] #### [facility] (DEFAULT) [address] [place] [address] 12158 MCHC (RBC) [Mass/Vol] 34 g/dL Normal 26-37 [facility] Comment on above: Performed By: #### 1 [id number], [id number] #### [facility] (DEFAULT) [address] [place] [address] 04092 MCV (RBC) [Entitic vol] 89 fL Normal 81-100 [facility] Comment on above: Performed By: #### 1 [id number], [id number] #### [facility] (DEFAULT) [address] [place] [address] 40916 Platelet mean volume (Bld) [Entitic vol] 9.5 fL Normal 6.3-10.2 [facility] Comment on above: Performed By: #### 1 [id number], [id number] #### [facility] (DEFAULT) [address] [place] [address] 10340 Platelets (Bld) [#/Vol] 301 x10 Normal 138-427 [facility] Comment on above: Performed By: #### 1 [id number], [id number] #### [facility] (DEFAULT) [address] [place] [address] 41518 RBC (Bld) [#/Vol] 5.04 x10 Normal 3.70-5.30 [facility] Comment on above: Performed By: #### 1 [id number], [id number] #### [facility] (DEFAULT) [address] [place] [address]807 WBC (Bld) [#/Vol] 12.6 x10 [facility] Comment on above: Performed By: #### 1 [id number], [id number] #### [facility] (DEFAULT) [address] [place] [address] Lab - Other Lab Resultson Lab - Other Lab Results [id number]#[facility] 05-16-2019 Outside Records [id number]#[facility] [id number]#[facility]00[facility] Vital Signs Date Time Vital Sign Value Performing Clinician Facility 04-11-2024 14:08-0400 Diastolic blood pressure 70 mm[Hg] [employer] TE[employer]IAN-Jorge Pettit Work Phone: [facility] 04-11-2024 14:08-0400 Heart rate 83 /min [employer] TE[employer]ICIAN-Jorge Pettit Work Phone: [facility] 04-11-2024 14:08-0400 SaO2% (BldA) [Mass fraction] 99 % OLEG ePttit Work Phone: [facility] 04-11-2024 14:08-0400 Systolic blood pressure 118 mm[Hg] [employer] TECHNICIAN-C Ajit Spasic Work Phone: [facility] 03-16-2024 09:55-0400 Diastolic blood pressure 87 mm[Hg] [employer] TECHNICIAN-C Ajit Spasic Work Phone: [facility] 03-16-2024 09:55-0400 Heart rate 66 /min [employer] TECH[employer]ICIAN-C Ajit Spasic Work Phone: [facility] 03-16-2024 09:55-0400 Respiratory rate 20 /min [employer] TECH[employer]ICIAN-C Ajit Spasic Work Phone: [facility] 03-16-2024 09:55-0400 SaO2% (BldA) [Mass fraction] 99 % [employer] TECH[employer]ICIAN-C Ajit Spasic Work Phone: [facility] 03-16-2024 09:55-0400 Systolic blood pressure 138 mm[Hg] [employer] TECHNICIAN-C Ajit Spasic Work Phone: [facility] 03-16-2024 07:01-0400 Body height 166.37 cm [employer] TECH[employer]ICIAN-C Ajit Spasic Work Phone: [facility] 03-16-2024 07:01-0400 Body temperature 98.3 [degF] [employer] TECHNICIAN-C Ajit Spasic Work Phone: [facility] 03-16-2024 07:01-0400 Body weight 69.85 kg [employer] TECHNICIAN-C Ajit Spasic Work Phone: [facility] 03-08-2024 14:14-0400 Diastolic blood pressure 70 mm[Hg] [employer] TECHNICIAN-C Ajit Spasic Work Phone: [facility] 03-08-2024 14:14-0400 Heart rate 95 /min [employer] TECH[employer]ICIAN-C Ajit Spasic Work Phone: [facility] 03-08-2024 14:14-0400 SaO2% (BldA) [Mass fraction] 99 % [employer] TECHNICIAN-C Ajit Spasic Work Phone: [facility] 03-08-2024 14:14-0400 Systolic blood pressure 122 mm[Hg] [employer] TECHNICIAN-C Ajit Spasic Work Phone: [facility] 03-01-2024 12:19-0400 Diastolic blood pressure 75 mm[Hg] [employer] TECHNICIAN-C Ajit Spasic Work Phone: [facility] 03-01-2024 12:19-0400 Heart rate 69 /min [employer] TECHNICIAN-C Ajit Spasic Work Phone: [facility] 03-01-2024 12:19-0400 Inhaled oxygen flow rate 3 L/min [employer] TECH[employer]ICIAN-C Ajit Spasic Work Phone: [facility] 03-01-2024 12:19-0400 SaO2% (BldA) [Mass fraction] 100 % [employer] TECHNICIAN-C Ajit Spasic Work Phone: [facility] 03-01-2024 12:19-0400 Systolic blood pressure 130 mm[Hg] [employer] TECHNICIAN-C Ajit Spasic Work Phone: [facility] 03-01-2024 12:13-0400 Respiratory rate 18 /min [employer] TECHNICIAN-C Ajit Spasic Work Phone: [facility] 03-01-2024 09:54-0400 Body height 166.37 cm [employer] TECHNICIAN-C Ajit Spasic Work Phone: [facility] 03-01-2024 09:54-0400 Body weight 69.85 kg [employer] TECHNICIAN-C Ajit Spasic Work Phone: [facility] 02-21-2024 10:41-0400 Body weight 69.11 kg [employer] TECHNICIAN-C Ajit Spasic Work Phone: [facility] 02-21-2024 10:41-0400 Diastolic blood pressure 80 mm[Hg] [employer] TECHNICIAN-C Ajit Spasic Work Phone: [facility] 02-21-2024 10:41-0400 Systolic blood pressure 124 mm[Hg] [employer] TECHNICIAN-C Ajit Spasic Work Phone: [facility] 10-16-2023 13:00-0500 Diastolic blood pressure 94 mm[Hg] [employer] TECHNICIAN-C Ajit Spasic Work Phone: [facility] 10-16-2023 13:00-0500 Heart rate 70 /min [employer] TECHNICIAN-C Ajit Spasic Work Phone: [facility] 10-16-2023 13:00-0500 Respiratory rate 16 /min [employer] TECHNICIAN-C Ajit Spasic Work Phone: [facility] 10-16-2023 13:00-0500 SaO2% (BldA) [Mass fraction] 97 % [employer] TECHNICIAN-C Aijt Spasic Work Phone: [facility] 10-16-2023 13:00-0500 Systolic blood pressure 168 mm[Hg] [employer] TECHNICIAN-C Ajit Spasic Work Phone: [facility] 10-16-2023 09:33-0500 Body height 165.1 cm [employer] TECHNICIAN-C Ajit Spasic Work Phone: [facility] 10-16-2023 09:33-0500 Body temperature 97.4 [degF] [employer] TECHNICIAN-C Ajit Spasic Work Phone: [facility] 10-16-2023 09:33-0500 Body weight 77.3 kg [employer] TECHNICIAN-C Ajit Spasic Work Phone: [facility] 10-09-2023 16:00-0500 Body temperature 97.7 [degF] [employer] TECHNICIAN-C Ajit Spasic Work Phone: [facility] 10-09-2023 16:00-0500 Diastolic blood pressure 80 mm[Hg] [employer] TECHNICIAN-C Ajit Spasic Work Phone: [facility] 10-09-2023 16:00-0500 Heart rate 85 /min [employer] TECHNICIAN-C Ajit Spasic Work Phone: [facility] 10-09-2023 16:00-0500 Respiratory rate 18 /min [employer] TECHNICIAN-C Ajit Spasic Work Phone: [facility] 10-09-2023 16:00-0500 SaO2% (BldA) [Mass fraction] 99 % [employer] TECHNICIAN-C Ajit Spasic Work Phone: [facility] 10-09-2023 16:00-0500 Systolic blood pressure 117 mm[Hg] [employer] TECHNICIAN-C Ajit Spasic Work Phone: [facility] 10-08-2023 01:12-0500 Body height 165.1 cm [employer] TECHNICIAN-C Ajit Spasic Work Phone: [facility] 10-08-2023 01:12-0500 Body weight 76.65 kg [employer] TECHNICIAN-C Ajit Spasic Work Phone: [facility] 09-28-2023 13:30-0500 Diastolic blood pressure 87 mm[Hg] [employer]ING TECHNICIAN-C Ajit Spasic Work Phone: [facility] 09-28-2023 13:30-0500 Heart rate 94 /min [employer] TECHNICIAN-C Ajit Spasic Work Phone: [facility] 09-28-2023 13:30-0500 Respiratory rate 18 /min [employer] TECHNICIAN-C Ajit Spasic Work Phone: [facility] 09-28-2023 13:30-0500 SaO2% (BldA) [Mass fraction] 94 % [employer] TECHNICIAN-C Ajit Spasic Work Phone: [facility] 09-28-2023 13:30-0500 Systolic blood pressure 131 mm[Hg] [employer] TECHNICIAN-C Ajit Spasic Work Phone: [facility] 09-28-2023 09:30-0500 Body temperature 97.9 [degF] [employer] TECHNICIAN-C Ajit Spasic Work Phone: [facility] 09-28-2023 08:51-0500 Inhaled oxygen flow rate 10 L/min [employer] TECHNICIAN-C Ajit Spasic Work Phone: [facility] 09-28-2023 07:20-0500 Body height 166.37 cm [employer] TECHNICIAN-C Ajit Spasic Work Phone: [facility] [facility] 09-28-2023 07:20-0500 Body mass index (BMI) [Ratio] 27.7 kg/m2 [employer] MANUFACTURING TECHNICIAN-C Ajit Spasic Work Phone: [facility] 09-28-2023 07:20-0500 Body weight 76.7 kg [employer] MANUFACTURING TECHNICIAN-C Ajit Spasic Work Phone: [facility] 07-13-2023 13:55-0400 Diastolic blood pressure 93 mm[Hg] NA [employer] Work Phone: [facility] 07-13-2023 13:55-0400 Heart rate 87 /min NA [employer] Work Phone: [facility] 07-13-2023 13:55-0400 Respiratory rate 16 /min NA [employer] Work Phone: [facility] 07-13-2023 13:55-0400 SaO2% (BldA) [Mass fraction] 96 % NA [employer] Work Phone: [facility] 07-13-2023 13:55-0400 Systolic blood pressure 133 mm[Hg] NA [employer] Work Phone: [facility] 07-13-2023 13:16-0400 Body temperature 98 [degF] NA [employer] Work Phone: [facility] 07-13-2023 12:51-0400 Inhaled oxygen flow rate 10 L/min NA [employer] Work Phone: [facility] 07-13-2023 12:17-0400 Body height 165.1 cm NA [employer] Work Phone: [facility] 07-13-2023 12:17-0400 Body mass index (BMI) [Ratio] 28.2 kg/m2 NA [facility] [facility] Work Phone: [facility] 07-13-2023 12:17-0400 Body weight 77 kg NA [facility] Work Phone: [facility] 05-05-2023 10:18-0400 Diastolic blood pressure 90 mm[Hg] [employer] MANUFACTURING TECHNICIAN-C Ajit Spasic Work Phone: [facility] 05-05-2023 10:18-0400 Heart rate 82 /min [employer] MANUFACTURING TECHNICIAN-C Ajit Spasic Work Phone: [facility] 05-05-2023 10:18-0400 Respiratory rate 18 /min [employer] MANUFACTURING TECHNICIAN-C Ajit Spasic Work Phone: [facility] 05-05-2023 10:18-0400 SaO2% (BldA) [Mass fraction] 98 % [employer] MANUFACTURING TECHNICIAN-C Ajit Spasic Work Phone: [facility] 05-05-2023 10:18-0400 Systolic blood pressure 130 mm[Hg] [employer] MANUFACTURING TECHNICIAN-C Ajit Spasic Work Phone: [facility] 05-05-2023 09:39-0400 Inhaled oxygen flow rate 3 L/min [employer] MANUFACTURING TECHNICIAN-C Ajit Spasic Work Phone: [facility] 05-05-2023 08:43-0400 Body height 165.1 cm [employer] MANUFACTURING TECHNICIAN-C Ajit Spasic Work Phone: [facility] 05-05-2023 08:43-0400 Body weight 74.84 kg [employer] MANUFACTURING TECHNICIAN-C Ajit Spasic Work Phone: [facility] 04-14-2023 12:08-0400 Diastolic blood pressure 89 mm[Hg] [employer] MANUFACTURING TECHNICIAN-C Ajit Spasic Work Phone: [facility] 04-14-2023 12:08-0400 Heart rate 71 /min [employer] MANUFACTURING TECHNICIAN-C Ajit Spasic Work Phone: [facility] 04-14-2023 12:08-0400 Respiratory rate 16 /min [employer] MANUFACTURING TECHNICIAN-C Ajit Spasic Work Phone: [facility] 04-14-2023 12:08-0400 SaO2% (BldA) [Mass fraction] 97 % [employer] MANUFACTURING TECHNICIAN-C Ajit Spasic Work Phone: [facility] 04-14-2023 12:08-0400 Systolic blood pressure 124 mm[Hg] [employer] MANUFACTURING TECHNICIAN-C Ajit Spasic Work Phone: [facility] 04-14-2023 11:29-0400 Inhaled oxygen flow rate 3 L/min [employer] MANUFACTURING TECHNICIAN-C Ajit Spasic Work Phone: [facility] 04-14-2023 10:19-0400 Body height 165.1 cm [employer] MANUFACTURING TECHNICIAN-C Ajit Spasic Work Phone: [facility] 04-14-2023 10:19-0400 Body weight 74.84 kg [employer] MANUFACTURING TECHNICIAN-C Ajit Spasic Work Phone: [facility] 04-02-2023 11:30-0400 Body height 166.37 cm Kyler Miramontes Other [employer] Other 04-02-2023 11:30-0400 Body mass index (BMI) [Ratio] 27.04 kg/m2 Kyler Miramontes Other [employer] Other 04-02-2023 11:30-0400 Body weight 74.84 kg Kyler Miramonets Other [employer] Other 04-02-2023 11:30-0400 Diastolic blood pressure 80 mm[Hg] Kyler Miramontes Other [employer] Other 04-02-2023 11:30-0400 Systolic blood pressure 110 mm[Hg] Kyler Miramontes Other [facility] [employer] Other 11-18-2022 11:59-0500 Diastolic blood pressure 94 mm[Hg] Services [facility] [employer] Work Phone: [facility] 11-18-2022 11:59-0500 Heart rate 85 /min Services [facility] [employer] Work Phone: [facility] 11-18-2022 11:59-0500 Respiratory rate 16 /min Services [facility] [employer] Work Phone: [facility] 11-18-2022 11:59-0500 SaO2% (BldA) [Mass fraction] 98 % Services [facility] [employer] Work Phone: [facility] 11-18-2022 11:59-0500 Systolic blood pressure 140 mm[Hg] Services [facility] [employer] Work Phone: [facility] 11-18-2022 11:21-0500 Inhaled oxygen flow rate 3 L/min Services [facility] [employer] Work Phone: [facility] 11-18-2022 09:23-0500 Body height 166.37 cm Services [facility] [employer] Work Phone: [facility] 11-18-2022 09:23-0500 Body weight 74.38 kg Services [facility] [employer] Work Phone: [facility] 11-03-2022 11:30-0500 Body height 166.37 cm Kyler Miramontes Other [employer] Other 11-03-2022 11:30-0500 Diastolic blood pressure 80 mm[Hg] Kyler Miramontes Other [employer] Other 11-03-2022 11:30-0500 SaO2% (BldA) [Mass fraction] 98 % Kyler Miramontes Other [facility] [employer] Other 11-03-2022 11:30-0500 Systolic blood pressure 118 mm[Hg] Kyler Miramontes Other [facility] [employer] Other 07-31-2022 11:50-0400 Blood Pressure Location [employer] [facility] 07-31-2022 11:50-0400 Diastolic blood pressure 82 mm[Hg] Joshua Alcresta [facility] 07-31-2022 11:50-0400 Heart rate 70 /min [employer] [facility] 07-31-2022 11:50-0400 Respiratory rate 16 /min JoshuaAI [employer] [facility] 07-31-2022 11:50-0400 Systolic blood pressure 136 mm[Hg] Joshua Alcresta [facility] 05-27-2022 09:13-0400 Body temperature 97.9 [degF] Services [facility] [employer] Work Phone: [facility] 05-27-2022 09:13-0400 Body weight 77.11 kg Services [facility] Work Phone: [facility] 05-27-2022 09:13-0400 Diastolic blood pressure 82 mm[Hg] Services [facility] Work Phone: [facility] 05-27-2022 09:13-0400 Heart rate 70 /min Services [facility] [employer] Work Phone: [facility] 05-27-2022 09:13-0400 Respiratory rate 20 /min Services [facility] [employer] Work Phone: [facility] 05-27-2022 09:13-0400 SaO2% (BldA) [Mass fraction] 98 % Services [facility] Work Phone: [facility] 05-27-2022 09:13-0400 Systolic blood pressure 121 mm[Hg] Services [facility] Work Phone: [facility] 05-27-2022 08:06-0400 Body height 166.37 cm Services [facility] Work Phone: [facility] 05-01-2022 22:19-0400 Diastolic blood pressure 70 mm[Hg] Services [facility] Work Phone: [facility] 05-01-2022 22:19-0400 Heart rate 86 /min Services [facility] Work Phone: [facility] 05-01-2022 22:19-0400 Respiratory rate 18 /min Services [facility] Work Phone: [facility] 05-01-2022 22:19-0400 SaO2% (BldA) [Mass fraction] 99 % Services [facility] Work Phone: [facility] 05-01-2022 22:19-0400 Systolic blood pressure 138 mm[Hg] Services [facility] Work Phone: [facility] 05-01-2022 17:09-0400 Body height 166.37 cm Services [facility] Work Phone: [facility] 05-01-2022 17:09-0400 Body temperature 99.4 [degF] Services [facility] Work Phone: [facility] 05-01-2022 17:09-0400 Body weight 77.8 kg Services [facility] Work Phone: [facility] 04-29-2022 14:29-0400 Body height 165.1 cm Services [facility] Work Phone: [facility] 04-29-2022 14:29-0400 Body temperature 97.8 [degF] Services [facility] Work Phone: [facility] 04-29-2022 14:29-0400 Body weight 68.03 kg Services [facility] Work Phone: [facility] 04-29-2022 14:29-0400 Diastolic blood pressure 83 mm[Hg] Services [facility] [employer] Work Phone: [facility] 04-29-2022 14:29-0400 Heart rate 70 /min Services [facility] [employer] Work Phone: [facility] 04-29-2022 14:29-0400 Respiratory rate 16 /min Services [facility] [employer] Work Phone: [facility] 04-29-2022 14:29-0400 SaO2% (BldA) [Mass fraction] 100 % Services [facility] [employer] Work Phone: [facility] 04-29-2022 14:29-0400 Systolic blood pressure 131 mm[Hg] Services [facility] [employer] Work Phone: [facility] 02-19-2022 15:45-0400 Body height 166.37 cm Kyler Aliceaky Other [employer] Other 02-19-2022 15:45-0400 Body mass index (BMI) [Ratio] 27.36 kg/m2 Kylerjocelyn Miramontes Other [employer] Other 02-19-2022 15:45-0400 Body weight 75.75 kg Kyler Miramontes Other [employer] Other 02-19-2022 15:45-0400 Diastolic blood pressure 64 mm[Hg] Kyler Miramontes Other [employer] Other 02-19-2022 15:45-0400 Systolic blood pressure 110 mm[Hg] Kyler Miramontes Other [employer] Other 01-28-2022 14:00-0400 Body height 166.37 cm Kyler Miramontes Other [employer] Other 01-28-2022 14:00-0400 Body mass index (BMI) [Ratio] 27.27 kg/m2 Kyler Miramontes Other [employer] Other 01-28-2022 14:00-0400 Body weight 75.48 kg Kyler Miramontes Other [employer] Other 01-28-2022 14:00-0400 Diastolic blood pressure 68 mm[Hg] Kyler Miramontes Other [employer] Other 01-28-2022 14:00-0400 Systolic blood pressure 112 mm[Hg] Kyler Miramontes Other [employer] Other 01-14-2022 12:00-0400 Body height 166.37 cm Girish Okeefedeb Other [employer] Other 01-14-2022 12:00-0400 Body mass index (BMI) [Ratio] 25.23 kg/m2 Girish Elsdeb Other [employer] Other 01-14-2022 12:00-0400 Body weight 69.85 kg Girish Nilton Other [employer] Other Encounters Encounter Date Encounter Type Care Provider Facility Start: 07-04-2024 End: 07-04-2024 Patient encounter procedure [employer] MANUFACTURING TECHNICIAN-C Ajit Pettit Work Phone: [facility] C[facility]-Lab [place] Work Phone: Start: 07-04-2024 End: 07-04-2024 ambulatory [employer] MANUFACTURING TECHNICIAN-C Ajit Pettit Work Phone: [facility] Work Phone: Start: 06-08-2024 End: 06-08-2024 Patient encounter procedure [employer] MANUFACTURING TECHNICIAN-C Ajit Spasic Work Phone: [facility]-MRI [address] Work Phone: Start: 06-08-2024 End: 06-08-2024 ambulatory [employer] MANUFACTURING TECHNICIAN-C Ajit E Spasic Work Phone: [facility] Work Phone: Start: 05-16-2024 End: 05-16-2024 ambulatory [employer] MANUFACTURING TECHNICIAN-C Ajit E Spasic Work Phone: [facility] Work Phone: Start: 05-16-2024 End: 05-16-2024 Departed Referred [employer] MANUFACTURING TECHNICIAN-C Ajit Spasic Work Phone: [facility] Start: 04-11-2024 End: 04-11-2024 ambulatory [employer] MANUFACTURING TECHNICIAN-C Ajit E Spasic Work Phone: [facility] Work Phone: Start: 04-11-2024 End: 04-11-2024 Patient encounter procedure [employer] MANUFACTURING TECHNICIAN-C Ajit Spasic Work Phone: [facility] Work Phone: Start: 03-16-2024 Non-patient / Non-visit [employer] MANUFACTURING TECHNICIAN-C L aura Spasic Work Phone: [facility] Work Phone: Start: 03-16-2024 End: 03-16-2024 Admission to same day surgery center [employer] MANUFACTURING TECHNICIAN-C Ajit Spasic Work Phone: [facility] Work Phone: Start: 03-16-2024 End: 03-16-2024 ambulatory [employer] MANUFACTURING TECHNICIAN-C Ajit E Spasic Work Phone: [facility] Work Phone: Start: 03-08-2024 End: 03-08-2024 ambulatory [employer] MANUFACTURING TECHNICIAN-C Ajit E Spasic Work Phone: [facility] Work Phone: Start: 03-08-2024 End: 03-08-2024 Patient encounter procedure [employer] MANUFACTURING TECHNICIAN-C Ajit Spasic Work Phone: [facility] Work Phone: Start: 03-02-2024 End: 03-02-2024 Patient encounter procedure [employer] MANUFACTURING TECHNICIAN-C Ajit Spasic Work Phone: [facility]-X[facility] Work Phone: Start: 03-02-2024 End: 03-02-2024 ambulatory [employer] MANUFACTURING TECHNICIAN-C Ajit E Spasic Work Phone: [facility] Work Phone: Start: 03-01-2024 Non-patient / Non-visit [employer] MANUFACTURING TECHNICIAN-C L aura Spasic Work Phone: [facility] Work Phone: Start: 03-01-2024 End: 03-01-2024 Admission to same day surgery center [employer] MANUFACTURING TECHNICIAN-C Ajit Spasic Work Phone: [facility] Work Phone: Start: 03-01-2024 End: 03-01-2024 ambulatory [employer] MANUFACTURING TECHNICIAN-C Ajit E Spasic Work Phone: [facility] Work Phone: Start: 02-21-2024 End: 02-21-2024 ambulatory [employer] MANUFACTURING TECHNICIAN-C Ajit E Spasic Work Phone: [facility] Work Phone: Start: 02-21-2024 End: 02-21-2024 Patient encounter procedure [employer] MANUFACTURING TECHNICIAN-C Ajit Spasic Work Phone: [facility] Work Phone: Start: 02-09-2024 End: 02-09-2024 Patient encounter procedure [employer] MANUFACTURING TECHNICIAN-C Ajit Spasic Work Phone: [facility] Ctr-Ultrasound Cntr for Breast Car Start: 02-09-2024 End: 02-09-2024 ambulatory [employer] MANUFACTURING TECHNICIAN-C Ajit E Spasic Work Phone: [facility] Ctr Work Phone: Start: 02-04-2024 End: 02-04-2024 Patient encounter procedure [employer] MANUFACTURING TECHNICIAN-C Ajit Spasic Work Phone: [facility]-Center for Breast Care Work Phone: Start: 02-04-2024 End: 02-04-2024 ambulatory [employer] MANUFACTURING TECHNICIAN-C Ajit E Spasic Work Phone: [facility] Ctr Work Phone: Start: 01-21-2024 End: 01-21-2024 Patient encounter procedure [employer] MANUFACTURING TECHNICIAN-C Ajit Spasic Work Phone: [facility]-Ultrasound [place] Work Phone: Start: 01-21-2024 End: 01-21-2024 ambulatory [employer] MANUFACTURING TECHNICIAN-C Ajit E Spasic Work Phone: [facility] Ctr Work Phone: Start: 01-18-2024 End: 01-18-2024 ambulatory Ajit E Spasic [facility] Work Phone: Start: 01-18-2024 End: 01-18-2024 Departed Referred [employer] MANUFACTURING TECHNICIAN-C Ajit Spasic Work Phone: [facility] Start: 10-20-2023 End: 10-20-2023 ambulatory CARRI A VISCI Not Available Start: 10-16-2023 End: 10-16-2023 Emergency department patient visit [employer] MANUFACTURING TECHNICIAN-C Ajit Spasic Work Phone: [facility] Ctr-Emergency Room Work Phone: Start: 10-07-2023 End: 10-09-2023 Evaluation and management of inpatient [employer] MANUFACTURING TECHNICIAN-C Ajit Spasic Work Phone: [facility]-[address] Work Phone: Start: 09-28-2023 End: 09-28-2023 Admission to same day surgery center [employer] MANUFACTURING TECHNICIAN-C Ajit Spasic Work Phone: [facility]-Surgery Center [place] Start: 09-28-2023 End: 09-28-2023 ambulatory Ajit E Spasic Facility:[facility] Start: 09-16-2023 End: 09-16-2023 Patient encounter procedure [employer] MANUFACTURING TECHNICIAN-C Ajit Spasic Work Phone: [facility]-Pre-Surgical Testing Work Phone: Start: 09-16-2023 End: 09-16-2023 ambulatory [employer] MANUFACTURING TECHNICIAN-C Ajit E Spasic Work Phone: [facility] Work Phone: Start: 07-13-2023 End: 07-13-2023 Admission to same day surgery center NA [employer] Work Phone: [facility]-Surgery Center [place] Start: 07-13-2023 End: 07-13-2023 ambulatory . [employer] Work Phone: [facility] Ctr Work Phone: Start: 06-30-2023 End: 06-30-2023 ambulatory . [employer] Work Phone: [facility] Ctr Work Phone: Start: 06-30-2023 End: 06-30-2023 Patient encounter procedure NA [employer] Work Phone: [facility]-Pre-Surgical Testing Work Phone: Start: 05-05-2023 (PROC) PROCEDURE Kyler Joyner [facility] Medical OutPt Start: 05-05-2023 End: 05-05-2023 Admission to same day surgery center [employer] MANUFACTURING TECHNICIAN-C Ajit Spasic Work Phone: [facility] Work Phone: Start: 05-05-2023 End: 05-05-2023 ambulatory NON STAFF [facility] Work Phone: Start: 05-04-2023 End: 05-04-2023 ambulatory NON STAFF [facility] Work Phone: Start: 05-04-2023 End: 05-04-2023 Departed Referred [employer] MANUFACTURING TECHNICIAN-C Ajit Spasic Work Phone: [facility] Services Start: 04-26-2023 End: 04-26-2023 Patient encounter procedure [employer] MANUFACTURING TECHNICIAN-C Ajit Lariossic Work Phone: [facility] Ctr-Lab [place] Work Phone: Start: 04-14-2023 (PROC) PROCEDURE Kyler Joyner [facility] Start: 04-14-2023 End: 04-14-2023 Admission to same day surgery center [employer] MANUFACTURING TECHNICIAN-C Ajit Spasic Work Phone: [facility] Work Phone: Start: 04-14-2023 End: 04-14-2023 ambulatory NON STAFF [facility] [employer] Other Start: 04-02-2023 End: 04-02-2023 ambulatory Kyler Miramontes Other [employer] Other Start: 04-02-2023 Office outpatient vi sit 25 minutes Kyler Miramontes [facility] [place] Start: 02-15-2023 End: 02-15-2023 ambulatory AJIT SPASIC Facility: Start: 02-09-2023 End: 02-09-2023 ambulatory [facility] Work Phone: [facility] Ctr Work Phone: Start: 02-09-2023 End: 02-09-2023 Departed Referred Services [facility] Work Phone: [facility] Start: 01-29-2023 End: 01-29-2023 ambulatory AJIT MILLANJorge Facility:[facility] Start: 12-29-2022 ambulatory Joshua PRESTON Facility : [place] Start: 11-18-2022 (PROC) PROCEDURE Kyler Miramontes [facility] Medical OutPt Start: 11-18-2022 End: 11-18-2022 Admission to same day surgery center Services [facility] Work Phone: [facility] Work Phone: Start: 11-18-2022 End: 11-18-2022 ambulatory Services [facility] Work Phone: [facility] Ctr Work Phone: Start: 11-12-2022 End: 11-12-[address] DERICK BORRERO . Facility:[facility] Start: 11-05-2022 End: 11-05-2022 ambulatory Services [facility] Work Phone: [facility] Ctr Work Phone: Start: 11-05-2022 End: 11-05-2022 Departed Referred Services [facility] Work Phone: [facility] Start: 11-03-2022 End: 11-03-2022 ambulatory Kyler Miramontes Other [employer] Other Start: 11-03-2022 Office outpatient vi sit 25 minutes Kyler Miramontes [facility] Start: 11-03-2022 End: 11-03-2022 Patient encounter procedure Services [facility] Work Phone: [facility]-XRay [place] Work Phone: Start: 11-02-2022 End: 11-03-2022 ambulatory Joshua PRESTON Facility: [place] Start: 11-02-2022 End: 11-02-2022 Patient encounter procedure Joshua PRESTON [facility] [place] Start: 09-29-2022 End: 09-30-2022 ambulatory Joshua PRESTON Facility: [place] Start: 09-29-2022 End: 09-29-2022 Patient encounter procedure Joshua PRESTON [facility] [place] Start: 08-24-2022 End: 08-25-2022 ambulatory Joshua PRESTON Facility:[facility] Start: 08-24-2022 End: 08-24-2022 Patient encounter procedure Joshua PRESTON [facility] Start: 07-31-2022 End: 08-01-2022 ambulatory BELTRAN PAVON Facility:[facility] Start: 07-31-2022 End: 07-31-2022 Patient encounter procedure Joshua PRESTON [facility] [place] Start: 07-08-2022 End: 07-08-2022 ambulatory [facility] Work Phone: [facility] Ctr Work Phone: Start: 07-08-2022 End: 07-08-2022 Patient encounter procedure Services [facility] Work Phone: [facility] C[facility]-Lab [place] Start: 06-24-2022 End: 06-24-2022 Patient encounter procedure Services [facility] Work Phone: [facility] Ctr-MRI [place] Start: 06-17-2022 End: 06-17-2022 Patient encounter procedure Services [facility] Work Phone: [facility] Ctr-Ultrasound [place] Start: 06-09-2022 End: 06-09-2022 Patient encounter procedure Services [facility] Work Phone: [facility]-Ultrasound [place] Start: 06-02-2022 End: 06-02-2022 Departed Referred Services [facility] Work Phone: [facility] Start: 05-27-2022 End: 05-27-2022 Registered Recurring Services [facility] Work Phone: [facility]-Cancer Center Start: 05-07-2022 End: 05-07-2022 Patient encounter procedure Services [facility] Work Phone: [facility]-Lab [place] Start: 05-01-2022 End: 05-01-2022 Emergency department patient visit Services [facility] Work Phone: [facility]-Emergency Room Start: 05-01-2022 End: 05-01-2022 Patient encounter procedure Services [facility] Work Phone: [facility]-XRay [place] Start: 04-30-2022 End: 04-30-2022 Departed Referred Services [facility] Work Phone: [facility]-[place] [facility] Start: 04-29-2022 End: 04-29-2022 Emergency department patient visit [facility] Work Phone: [facility] Start: 03-04-2022 (Procedure) Short Kyler Miramontes [facility] Start: 03-04-2022 End: 03-04-2022 ambulatory Kyler Miramontes Other [facility] Other Start: 02-19-2022 End: 02-19-2022 ambulatory Kyler Miramontes Other [employer] Other Start: 02-19-2022 Office outpatient vi sit 25 minutes Kyler Miramontes [facility] Start: 02-11-2022 (Procedure) Short Kyler Miramontes [facility] Start: 02-11-2022 End: 02-11-2022 ambulatory Kyler Miramontes Other [employer] Other Start: 01-28-2022 End: 01-28-2022 ambulatory Kyler Miramontes Other [employer] Other Start: 01-28-2022 Office consultation new/estab patient 60 min Kyler Miramontes [facility] Start: 01-14-2022 End: 01-14-2022 ambulatory Girish Okeefedeb Other [employer] Other Start: 01-14-2022 Office outpatient ne w 30 minutes Girish Callaway [facility] Start: 01-21-2021 End: 01-21-2021 Departed Referred Services [facility] Work Phone: -[facility] Start: 12-24-2020 End: 12-24-2020 Patient encounter procedure Ajit Spasic -MRI [facility] Start: 12-03-2020 End: 12-03-2020 Patient encounter procedure Ajit Spasic -MRI [facility] Start: 12-02-2020 End: 12-02-2020 Patient encounter procedure Ajit Spasic -MRI [facility] Start: 11-05-2020 End: 11-05-2020 Departed Referred Ajit Pettit -LA [facility] Se rvices Start: 10-22-2020 End: 10-22-2020 Patient encounter procedure Ajit Pettit -XRay [facility] Start: 09-23-2020 End: 09-23-2020 Patient encounter procedure Ajit Sparyanc -[facility] Procedures Date Procedure Procedure Detail Performing Clinician Start: 06-08-2024 MR lumbar spine wo con [employer] MANUFACTURING TECHNICIAN-C Ajit Spasic Work Phone: Start: 03-16-2024 Screening colonoscopy N P-C Ajit Spasic Work Phone: Start: 03-02-2024 X-ray of lumbar spin e, four views [employer] MANUFACTURING TECHNICIAN-C Ajit Lariossic Work Phone: Start: 03-01-2024 Injection of local anesthetic into sacroiliac joint [employer] MANUFACTURING TECHNICIAN-C Ajit Spasic Work Phone: Start: 02-09-2024 Ultrasonography of r ight breast [employer] MANUFACTURING TECHNICIAN-C Ajit Spasic Work Phone: Start: 02-04-2024 Screening mammograph y of bilateral breasts [employer] MANUFACTURING TECHNICIAN-C Ajit Spasic Work Phone: Start: 01-21-2024 Ultrasonography of bilateral kidneys [employer] MANUFACTURING TECHNICIAN-C Ajit Spasic Work Phone: Start: 10-09-2023 Stool culture for bacteria [employer] MANUFACTURING TECHNICIAN-C Ajit Spasic Work Phone: Start: 10-08-2023 Computed tomography of abdomen and pelvis with contrast [employer] MANUFACTURING TECHNICIAN-C Ajit Spasic Work Phone: Start: 09-28-2023 Total hysterectomy v ia vaginal approach [employer] MANUFACTURING TECHNICIAN-C Ajit Spasic Work Phone: Start: 09-16-2023 Antibody screen Ajitcristal corrales Comment on above: Order Comment: Reaso n for Exam Type 2 diabetes mellitus without complication, without long- Result Comment: PERF ORMED BY: [facility] [address] [place] [address] PATHOLOGIST FLOOR CLEANER RIDGE HUERTA M.D. Start: 07-13-2023 Hysteroscopy NA [facility] Work Phone: Start: 05-05-2023 Injection of local anesthetic into sacroiliac joint [employer] MANUFACTURING TECHNICIAN-C Ajit Spasic Work Phone: Start: 05-04-2023 Urine culture [facility] Work Phone: Start: 04-26-2023 Radiography of thora cic spine [employer] MANUFACTURING TECHNICIAN-C Ajit Spasic Work Phone: Start: 04-14-2023 Epidural injection o f lumbar spine using fluoroscopic guidance [employer] MANUFACTURING TECHNICIAN-C Ajit Spasic Work Phone: Start: 02-09-2023 Urine culture [employer] MANUFACTURING TECHNICIAN-C Piero a Spasic Work Phone: Start: 11-18-2022 Injection of spinal epidural space Services [facility] [employer] Work Phone: Start: 11-05-2022 Urine culture Services [facility] [employer] Work Phone: Start: 11-03-2022 X-ray of cervical spine Services [facility] [employer] Work Phone: Start: 08-24-2022 Cystourethroscopy wi th dilation of urethral stricture Joshua Alcresta Start: 06-24-2022 MRI of head Services [facility] [employer] Work Phone: Start: 06-17-2022 Transvaginal echography Services [facility] [employer] Work Phone: Start: 06-17-2022 Pelvic echography Servi sharri [facility] [employer] Work Phone: Start: 06-09-2022 US scan of bladder Serv ices [facility] [employer] Work Phone: Start: 05-01-2022 Computed tomography of abdomen and pelvis with contrast Services [facility] [employer] Work Phone: Start: 05-01-2022 X-ray of right knee Ser [facility] [employer] Work Phone: Start: 04-29-2022 X-ray of left ankle Ser [facility] [employer] Work Phone: Start: 12-24-2020 MRI of left [...] for ba cteria, including anaerobic screen Services [facility] Work Phone: Blood culture for ba cteria, including anaerobic screen Services [facility] Work Phone: Cholecystectomy Joshua PRESTON H/O: hysterectomy S/P hysterectomy [employer] MANUFACTURING TECHNICIAN-C Tyron patricka Spasic Work Phone: H/O: hysterectomy Status post hysterectomy [employer] MANUFACTURING TECHNICIAN-C Ajit Spasic Work Phone: Urine culture Services [facility] [employer] Work Phone: Plan of Treatment Date Care Activity Detail Author Start: 03-16-[address] [facility] Start: 03-01-[address] [facility] Start: 10-16-2023 Bacteria identified in Blood by Culture [facility] Start: 10-16-[address] [facility] Start: 10-09-2023 Stool culture Stool Culture [facility] Start: 10-09-[address] [facility] Start: 10-09-2023 Referral to mule rider [facility] Start: 10-08-2023 Hospital admission [facility] Start: 10-08-[address] [facility] Start: 10-07-2023 Referral to clinical delimer [facility] Start: 09-28-2023 Hospital admission [facility] Start: 09-28-[address] [facility] Start: 07-13-2023 End: 07-13-[address] [facility] Start: 05-05-[address] [facility] Start: 05-04-2023 Bacteria identified in Urine by Culture Urine Culture [facility] Start: 05-04-2023 Urine culture Urine Culture [facility] Start: 04-14-[address] [facility] Start: 02-09-2023 Bacteria identified in Urine by Culture [facility] Start: 11-18-[address] [facility] Start: 11-05-2022 Bacteria identified in Urine by Culture [facility] Start: 06-02-2022 End: 06-02-2022 Departed Referred Departed Referred [facility] Start: 05-27-2022 Registered Recurring Iron deficiency [facility] Start: 05-27-[address] [facility] Start: 05-07-2022 End: 05-07-2022 Patient encounter procedure Departed Clinical [facility] Start: 05-01-2022 Computed tomography of abdomen and pelvis with contrast CT abdomen pelvis w con [facility] Start: 05-01-2022 End: 05-01-2022 Emergency department patient visit Departed Emergency [facility]-Emergency Room Atopobium vaginae DN A [Presence] in Vaginal fluid by NAYELY with probe detection [facility] Bacterial vaginosis associated bacterium 2 DNA [Presence] in Vaginal fluid by NAYELY with probe detection [facility] Chlamydia trachomati s rRNA [Presence] in Cervix by NAYELY with probe detection [facility] Glucose measurement estimated from glycated hemoglobin [facility] Glucose measurement estimated from glycated hemoglobin [facility] Hemoglobin A1c/Hemoglobin.total in Blood [facility] Human papilloma viru s 16+18+31+33+35+39+45+51+5 2+56+58+59+66+68 DNA [Presence] in Cervix by Probe with signal amplification [facility] Human papilloma viru s 16+18+31+33+35+39+45+51+5 2+56+58+59+68 DNA [Presence] in Cervix by Probe with signal amplification [facility] Megasphaera sp type 1 DNA [Presence] in Vaginal fluid by NAYELY with probe detection [facility] Neisseria gonorrhoea e rRNA [Presence] in Cervix by NAYELY with probe detection [facility] Patient Education [facility] Work Phone: Patient referral [facility] Work Phone: XR Lumbar spine 4 Views [facility] Immunizations Immunization Date Immunization Notes Care Provider Fa paula 09-19-2021 COVID-19 mRNA, Comirnaty (Pfizer) NA [facility] Work Phone: [facility] 08-29-2021 COVID-19 mRNA, Comirnaty (Pfizer) NA [facility] Work Phone: [facility] NEGATED: Highlighted row has not occurred!10-27-2019 influenza virus vaccine, live, attenuated, for intranasal use Joshua PRESTON [facility] [place] Payers Date Payer Category Payer Unknown [id number] [id number] Self-pay [id number] 2019 Unknown [id number] 1979 Unknown [id number] 2.16.8 40.1.282224.3.579.2.727 1979 Unknown [id number] 2.16.8 40.1.137936.3.579.2.727 1979 Unknown [id number] 2.16.8 40.1.500895.3.579.2.727 1979 Unknown [id number] 2.16.8 40.1.191086.3.579.2.727 1979 Unknown [id number] 2.16.8 40.1.065670.3.579.2.727 1979 Unknown [id number] 2.16.84 0.1.730859.3.579.2.593 1979 Unknown [id number] 2.16.84 0.1.941919.3.579.2.593 1979 Unknown [id number] 2.16.84 0.1.931818.3.579.2.593 1979 Unknown [id number] 2.16.84 0.1.709418.3.579.2.1259 1959 Medicaid [id number] 50 [id number] Unknown [id number] Unknown [id number] 2.16.8 40.1.526313.3.579.2.531 Unknown [id number] 2.16.8 40.1.148761.3.579.2.531 Unknown [id number] 2.16.8 40.1.561759.3.579.2.531 Unknown [id number] 2.16.8 40.1.586254.3.579.2.531 Unknown [id number] 2.16.8 40.1.548438.3.579.2.531 Unknown [id number] 2.16.8 40.1.443144.3.579.2.531 Unknown [id number] 2.16.8 40.1.897011.3.579.2.531 Unknown [id number] 2.16.8 40.1.842373.3.579.2.531 Unknown [id number] 2.16.8 40.1.014695.3.579.2.531 Unknown [id number] 2.16.8 40.1.584190.3.579.2.531 Unknown [id number] 2.16.8 40.1.754542.3.579.2.531 Unknown [id number] 2.16.8 40.1.615837.3.579.2.531 Unknown [id number] 2.16.8 40.1.980396.3.579.2.531 Unknown [id number] 2.16.8 40.1.604860.3.579.2.531 Unknown [id number] 2.16.8 40.1.148368.3.579.2.531 Social History Date Type Detail Facility Start: 09-25-2019 End: 10-16-2023 Tobacco smoking status NHIS Smoker (finding) [facility] Start: 1980 Sex Assigned At Female F [facility] Sex Assigned At [facility] Start: 07-31-2022 Tobacco smoking status Heavy t obacco smoker (finding) [facility] [address] Start: 03-01-2024 End: 03-16-2024 Tobacco smoking status NHIS Current some day smoker [facility] Goals Date Patient Goal Desired Activity /State Functional Status Date Assessment Result Facility 10-09-2023 Functional status Patient at Baseline [facility] Work Phone: 11-02-2022 Functional Status N/A [facility] 08-24-2022 Functional Status N/A [facility] 07-31-2022 Functional Status N/A [facility] Mental Status Date Assessment Result Facility 10-09-2023 Cognitive function Cognitive Sta tus Patient at Baseline [facility] Work Phone: Clinical Notes 01-14-2022 to 03-16-2024 Note Date & Type Note Facility 03-16-2024 Procedure note [facility] 03-01-2024 Procedure note [facility] 10-09-2023 Discharge summary Note Date/Time October 09, 2023 1:22pm [facility] [address] [place] [address] Discharge Summary Signed Patient: Rachel Mcgarry MR#: [id number] : 1980 Acct:[id number] Age/Sex: 43 / F Adm Date: 4 Loc: Room: [address] [place] [address]: Salazar Cabrera DO Copies to: OLEG Sharp APRN Shawn J Warner, DO~ Providers Date of Admission: 10/08/23 Date of Discharge: 10/09/23 Discharging Provider: Salazar Cabrera Additional Discharging Provider: Salazar Cabrera Primary Care Provider: Ajit Pettit Consults: 10/07/23 23:27 Consult to Adult Hospitalist Routine 10/08/23 07:21 Consult to manager property Routine 10/09/23 06:50 Consult to Obstetrics Routine [...] abdominal pain. CT abdomen pelvis done at [place] showed nonspecific hyperemia and thickening of the small bowel distally suggestive of enteritis but nonacute otherwise and no postoperative complications were noted. She was transferred to [facility] for evaluation by recent surgical team. She was noted to have elevated lactate and given IV hydration as well as Zosyn. Lactate resolved with hydration. She had repeat CTdone at [place] with bloating and pain increasing with liquid intake unchangedfrom previous and no surgical complications again noted. ALLIANCE DIRECTOR services followed ongoing through hospital stay. She was also seen by psychiatry with increase insertraline due to reports of depression and suicidal thoughts, should follow-up with [facility] behavioral health after discharge. Date of [...] % (Auto) 70.1, Lymph % (Auto) 16.5, Morrow % (Auto) 9.5, Eos % (Auto) 3.5, Baso % (Auto) 0.4, Nucleat RBC Rel Count 0.1, Neut # (Auto) 9.6 H, Lymph # (Auto) 2.2, Morrow # (Auto) 1.3 H, Eos # (Auto) [...] (call to schedule follow up appointment) Carri Hinds DO [Active Staff - D.O.] - (keep appointment as schedule) Ajit Pettit, [employer] MANUFACTURING TECHNICIAN-C [Primary Care Provider] - (call to schedule follow up appointment post hospitalization) Documented By: Ilene Lopez APRN 03/27 1322 Signed By: <Electronically signed by CHRISTINA Lopez> 10/09/23 1627 <Electronically signed by Salazar Cabrera DO> 10/09/23 1842 [facility] Work Phone: 1(906) 572-189601-06-2024 Progress note Author BONG Pavon [facility] October 09, 2023 8:22am Note Date/Time October 09, 2023 8: 22am [facility] [address] [place] [address] Progress Note Signed Patient: Rachel Mcgarry MR#: [id number] : 1980 Acct:[id number] Age/Sex: 43 / F Adm Date: 4 Loc: Room: [address] [place] [address] Type: ADM IN Attending Dr: Salazar Cabrera [...] % (Auto) 70.1, Lymph % (Auto) 16.5, Morrow % (Auto) 9.5, Eos % (Auto) 3.5, Baso % (Auto) 0.4, Nucleat RBC Rel Count 0.1, Neut # (Auto) 9.6 H, Lymph # (Auto) 2.2, Morrow # (Auto) 1.3 H, Eos # (Auto) 0.5 H, Baso # (Auto) 0.1 10/08/23 22:27: POC Glucose 194 10/08/23 18:21: POC Glucose 265, POC Glucose Comment Glu2: cleaned meter 10/08/23 13:07: POC Glucose 166, POC Glucose Comment Glu2: cleaned meter 10/08/23 10:31: Lactic Acid 1.9 10/08/23 08:20: Urine Color Victoria A, Urine Appearance Turbid A, Urine pH 5.5, Ur Specific [facility] > 1.050 H, Urine Protein 30 H, [...] of both cervix and uterus Plan: Postop H 09/28 stable (4) T2DM (type 2 diabetes [...] <Electronically signed by BONG Pavon> 10/09/23 0822 [facility] Work Phone: 1(104) 824-634501-05-2024 Consult note Author Teo crandall [facility] October 08, 2023 4:59pm Note Date/Time October 08, 2023 11 :30am [facility] [address] [place] [address] Psychiatry Consult Note Signed with Addenda Patient: Rachel Mcgarry MR#: [id number] : 1980 Acct:[id number] Age/Sex: 43 / F Adm Date: 4 Loc: Room: [address] [place] [address] Type : ADM IN Attending Dr: Rosanna Grullon MD Copies to: MD Rosanna Rangel MD Laura E Spasic, NP-C~ ADDENDUM1 No need for 15 min face check as patient contracts for safety. Addendum Documented By: Teo Taylor MD 10/08/231658 Addendum Signed By: <Electronically signed by Teo Taylor MD> 10/08/23 165 HPI Consult Date: 10/08/23 Requesting Physician: BONG Motley Primary Care Provider: OLEG Sharp Consult Narrative [...] Color Urine Appearance Urine pH Ur Specific [facility] Urine Protein Urine Glucose (UA) Urine Ketones Urine Occult Blood Urine Nitrite Ur Leukocyte Esterase Urine RBC Urine WBC 10/08/23 08:20 RBC Hgb Hct MCV MCH MCHC RDW Plt Count MPV Sodium Potassium Chloride Carbon Dioxide Anion Gap BUN Creatinine Calcium Total Bilirubin AST ALT Alkaline Phosphatase Total Protein Albumin Urine Color Victoria A Urine Appearance Turbid A Urine pH 5.5 Ur Specific [facility] > 1.050 H Urine Protein 30 H [...] provided. Documented By: Teo Taylor MD 4 [id number] Signed By: <Electronically signed by Teo Taylor MD> 10/08/23 1418 [facility] Work Phone: 1(239) 137-623001-05-2024 Progress note Author Salazar Cabrera [facility] October 08, 2023 4:41pm Note Date/Time October 08, 2023 11 :44am [facility] [address] [place] [address] Hospitalist Progress Note Signed Patient: Rachel Mcgarry MR#: [id number] : 1980 Acct:[id number] Age/Sex: 43 / F Adm Date: 4 Loc: Room: [address] [place] [address] Type: ADM IN Attending Dr: Rosanna Grullon [...] 500 Mg Tablet PO 10/06/24 22:59 Q6H [facility] Dextrose 0 gm 10/08/23 01:47 Dextrose 50% [...] 2 Mg Tablet PO 10/07/24 21:59 QHS [facility] Glucose 0 gm 10/08/23 01:47 Dextrose 40% [...] Tablet PO 10/07/24 01:59 Not Given Q6H [facility] Insulin Aspart 0 units 10/08/23 06:00 10/08/23 [...] Lactic acidosis chronic leukocytosis -CT abdomen pelvis?from [place] showed nonspecific hyperemia and thickening of small bowel distally suggestive of enteritis, nonacute otherwise, no postsurgical complications noted -Repeat CT abdomen pelvis?increasing bibasilar atelectasis, fatty liver, no bowel or urinary tract obstruction, no pelvic hematoma or significant free fluid, otherwise unchanged CT abdomen pelvis -Initial lactate 3.0--> 2.6--> 2.0--> 1.9 -Continue Zosyn, IVF. Afebrile. Scheduled dicyclomine. Symptom management -Advance diet to full liquid -ALLIANCE DIRECTOR following Depression -Seen by psychiatry with increase [...] signed by Salazar Cabrera DO> 10/08/23 1641 [facility] Work Phone: 1(846) 167-942901-05-2024 History and physical note Author -NOMS Beltran Pavon [facility] October 08, 2023 1:07pm Note Date/Time October 08, 2023 7: 21am [facility] [address] [place] [address] FLUME RIDE OPERATOR History & Physical Signed with Piotr Patient: Rachel Mcgarry MR#: [id number] : 1980 Acct:[id number] Age/Sex: 43 / F Adm Date: 4 Loc: Room: [address] [place] [address] Type: ADM IN Attending Dr: Beltran Pavon [...] has enteritis. She is cleared from the ALLIANCE DIRECTOR post op standpoint and we are signing off. Pt will be transferred to a medical floor for continued management. Addendum Documented By: BONG Pavon 10/08/23 1307 Addendum Signed By: <Electronically signed by BONG Pavon> 10/08/23 1307 Date of Service: 10/08/2023 ALLIANCE DIRECTOR - HPI History of Present Illness Chief Complaint: Abdominal pain with emesis Planned Procedure: S/P TLH 09/28/2023 HPI: Rachel presented to [place] yesterday with abdominal pain/distension and emesis.Her lactic acid was 3.0,WBS 20k in ER,Sodium [address] scan compatible with enteritis. She was transferred to [facility] for observation and treatment. Pt with Chronic [...] 1,000 mls @ 150 mls/hr IV .Q6H40M [facility] Stop: 10/06/24 22:59 Last Admin: 10/08/23 01:10 Dose: 125 mls/hr Piperacillin Sod/Tazobactam Sod (Zosyn) 3.375 gm in 100 mls @ 200 mls/hr IV Q6HSCH Last Admin: 10/08/23 03:45 Dose: 200 mls/hr Ibuprofen (Ibuprofen 600 Mg Tablet) 600 mg PO Q6H [facility] Stop: 10/07/24 01:59 Last Admin: 10/08/23 03:32 Dose: Not Given Insulin Aspart (Insulin Aspart 300 Units/3 Ml Insuln.Pen) 0 units SUBCUT Q6HR [facility]; Protocol Stop: 10/07/24 05:59 Last Admin: 10/08/23 06:27 Dose: 1 units Ondansetron HCl (Ondansetron 4 Mg/2 Ml Vial) 4 mg IV-PUSH Q8H PRN PRN Reason: Nausea And Vomiting Stop: 10/06/24 22:53 Ondansetron HCl (Ondansetron Odt 4 Mg Tab.Rapdis) 4 mg PO Q8HR PRN PRN Reason: Nausea And Vomiting Stop: 10/06/24 22:53 ALLIANCE DIRECTOR - Exam Physical Exam Vital signs: Temp [...] Present normal affect, suicidal ideation and depressed ALLIANCE DIRECTOR - Results Laboratory Results - Last 48 [...] Albumin 3.7, Globulin 2.4, Albumin/Globulin Ratio 1.5 ALLIANCE DIRECTOR - A/P (1) Abdominal pain: Plan: Post [...] <Electronically signed by BONG Pavon> 10/08/23 1258 [facility] Work Phone: 1(681) 812-432901-05-2024 Consult note Author Rosanna Grullon [facility] October 08, 2023 7:00am Note Date/Time October 08, 2023 1: 06am [facility] [address] [place], [place] [id number] Hospitalist Consult Note Signed Patient: Rachel Mcgarry MR#: [id number] : 1980 Acct:[id number] Age/Sex: 43 / F Adm Date: 4 Loc: 3S Room: 9D4139-3 Type: ADM IN Attending Dr: Beltran Pavon MD Copies to: MD Ajit Davis, [employer] MANUFACTURING TECHNICIAN-C Namrata Munoz, CHRISTINA Pavon MD-NOMS~ HPI DATE OF CONSULTATION: 10/08/23 REQUESTING PROVIDER: Beltran Pavon Consult Narrative Reason for Consult: elevated lactic acid, T2DM, leukocytosis HPI: Ms. Mcgarry is a 43-year-old female with a PMH of T2DM, seizure disorder, recent hysterectomy that was transferred here to [facility] to obstetrics for abdominal pain. Hospitalist team has been consulted for management of T2DM, elevated lactic acid and leukocytosis. Patient arrived to the [facility] emergency room via EMS for lower abdominal [...] September 28. She been seen in the [facility] emergency room for vaginal infection and was [...] 10/10/[address]received at the [facility] Documented By: Namrata Munoz, GOAT FARMER 10/08/23 0106 Signed By: <Electronically signed by CHRISTINA Munoz> 10/08/23 0153 <Electronically signed by Rosanna Grullon MD> 10/08/23 07 [facility] Work Phone: 1(977) 852-379908-02-[address] [facility]06-30-2023 Evaluation note* Encounter Date Diagnosis Assessment Notes [...] activities and movements while managing her pain. [facility] Other 01-31-2023 Evaluation note* Encounter Date Diagnosis [...] cervical spine to further evaluate her pain. [facility] Other 01-30-2023 Hospital Discharge instructions Patient Education [...] to keep your urine pale yellow. ?Take vpet-ebm-cllqmhp or prescription medicines. ?Eat foods that are high in fiber, such as beans, whole grains, and fresh fruits and vegetables. ?Limit foods that are high in fat and processed sugars, such as fried or sweet foods. General instructions Take zufz-pbf-rujmzqu and prescription medicines only as told by [...] the muscles that help control urination. Take wgwv-hnd-fjkmbtn and prescription medicines only as told by your health care provider. Contact a health care provider if your symptoms do not improve or get worse. This information is not intended to replace advice given to you by your health care provider. Make sure you discuss any questions you have with your health care provider. Document Released: 07/17/2010 Document Revised: 03/30/2019 Document Reviewed: 03/30/2019 [employer] Patient Education 2020 [employer]. Follow Up Care 10/22/2022 11:17:07 With:JORDANA BALDERAS, Joshua Dempsey, URL Address: [facility] [address] [place] [phone] Business (1) When: Unknown [facility] [address] [id number] Note [id number]:127[facility] 08-24-2022 NoteCystoscopy with Urethral Dilation [...] if you have a fever over [facility] Hospital Discharge instructions Patient Education [...] degrees Follow Up Care 07/31/2022 12:32:41 With:Joshua JORDANA Address: [address] [facility] [address] [place] [id number] Business (1) When:6 weeks Comments:Call for followup appointment. Monitor the urinary low after the dilation today. Have a great Thanksgiving. [facility]10-28-2022 Hospital Discharge instructions Patient Education 07/31/2022 12:11:34 [...] including vitamins, herbs, eye drops, creams, and qnhp-ini-dauzxph medicines. ?Whether you are or may be [...] 07/17/2008 Document Revised: 01/09/2020 Document Reviewed: 07/25/2018 Elsevier Patient Education 2020 [employer] Follow Up Care 07/24/2022 16:53:57 With:JORDANA BALDERAS, Joshua Dempsey, URL Address: [address] [place] [address]- When: Unknown Comments:Cysto/ Urodynamics [facility] [place] 05-19-2022 Evaluation note* Encounter Date Diagnosis Assessment Notes [...] and GT bursa injection in the future. [facility] Other 04-27-2022 Evaluation note* Encounter Date Diagnosis [...] progress notes from her referring physician at [facility]. I also independently reviewed previous MRI [...] - M79.7) Continue with medication management through [facility]. I will also refer her to [...] negative findings were considered in medical decision-making. [facility] Other 04-13-2022 Evaluation note* Encounter Date Diagnosis Assessment Notes Treatment Notes Treatment Clinical Notes Jan, Neck pain (ICD-10 - M54.2) I really do not see any surgical intervention that would be warranted in either her cervical or lumbar spine. I think continue conservative therapy is warranted. Jan, Low back pain at multiple sites (ICD-10 - M54.50) Jan, Fibromyalgia (ICD-10 - M79.7) [facility] Other consult note Author Jasmin Velázquez [facility] May 27, 2022 11:47am Note Date/Time May 27, 2022 11 :30am [facility] [place] [address] Hem/Onc Consult Note - OP Signed Patient: Rachel Mcgarry MR#: [id number] : 1980 Acct:[id number] Age/Sex: 42 / F Type: REG RCR Copies to: [facility]~ HPI Date/Time of Service: Date of Service: 05/27/2022 Time of Service: 11:29 Referring Provider/PCP: Referring Provider: PCP: Services [facility] - History of Present Illness Reason for Consultation: Leukocytosis Chief Complaint: Patient is here for a referral from Ajit Pettit for leukocytosis. [facility] labs. Patient states that she has been [...] the process of being referred to a latcher. Patient smokes averaging half pack to 1 [...] cancer. Patient is being referred to a latcher. We instructed her to call back if there is any concern for further definitive guidance and recommendations - Time with Patient Coordination of Care & Counseling Time: Greater than 50% of time spent with patient was for coordination of care (as documented) and jjvf-pe-bfxq counseling of patient and/or family. Dictated By: Jasmin Velázquez MD DD/ [id number] Signed By: <Electronically signed by Jasmin Velázquez MD> 05/27/22 1147 [facility] Work Phone: Evaluation + Plan note Future Appointments Appointment Date:08/18/2022 08:00:00 AM Scheduled Provider: Location:[facility] Appointment Type:Urology CALL PAT FT Appointment Date:08/24/2022 02:00:00 PM Scheduled Provider: Location:[facility] Appointment Type:Urology FT Appointment Date:08/24/2022 03:00:00 PM Scheduled Provider: Location:[facility] Appointment Type:Urology FT [facility] Evaluation + Plan note Future Appointments Appointment Date:09/29/2022 10:15:00 AM Scheduled Provider:Joshua PRESTON MD Location:[facility] Appointment Type:URO [facility] Future Appointments Appointment Date:12/29/2022 10:45:00 AM Scheduled Provider:Joshua PRESTON MD Location:[facility] Appointment Type:URO Office Visit [facility] [place] evaluation noteNo Assessments Information Available [facility] noteNo InformationNortKirk[facility] Other Evaluovtly note* Diagnosis Onset Date Resolution Status Iron deficiency acute Leucocytosis acute Right ovarian cyst acute [facility] Work Phone: Evaluation noteNo assessment information available [facility] Work Phone: evalusmwem note* Diagnosis Onset Date Resolution Status Abdominal pain acute Enteritis acute History of depression acute History of leukocytosis acut e IBS (irritable bowel syndrome) acute Leucocytosis acute Metabolic acidosis acute S/P hysterectomy acute T2DM (type 2 diabetes mellitus) acute [facility] Work Phone: Evaluomsir note* Diagnosis Onset Date Resolution Status Chronic pain acute Lumbosacral spondylosis acut e Sacroiliitis acute [facility] Work Phone: evaluation note* Diagnosis Onset Date Resolution Status Chronic pain acute Lumbosacral spondylosis acut e Sacroiliitis acute Chronic pain acute Lumbar radiculopathy acute Lumbosacral spondylosis acut e Sacroiliitis acute [facility] Work Phone: Evaluation note* Diagnosis Onset Date Resolution Status Chronic pain acute Lumbosacral spondylosis acut e Sacroiliitis acute Chronic pain acute Lumbar radiculopathy acute Lumbosacral spondylosis acut e Sacroiliitis acute Chronic pain acute Lumbar radiculopathy acute Lumbosacral spondylosis acut e Sacroiliitis acute [facility] Work Phone: evaluudbph note* Diagnosis Onset Date Resolution Status Chronic pain acute Lumbar radiculopathy acute Lumbosacral spondylosis acut e Sacroiliitis acute [facility] Work Phone: History and physical note Author Abi Sunshine [facility] March 16, 2024 8:19am Note Date/Time March 16, 2024 8:20 am [facility] [address] [place] [address] Gastroenterology H&P Signed Patient: Rachel Mcgarry MR#: [id number] : 1980 Acct:[id number] Age/Sex: 44 / F Adm Date: 4 Loc: Room: Type: [facility] Attending Dr: Abi Sunshine DO Copies to: DO Ajit Ferguson NP-C~ Date of Service: 03/16/2024 HISTORY & PHYSICAL: [...] is an appropriate candidate for the procedure. Aib Sunshine DO Documented By: Abi Sunshine DO 03/16/24 0819 Signed By: <Electronically signed by Abi Sunshine DO> 03/16/24 0819 [facility] Work Phone: Hisldtj general Narrative - Reported* Type Description Date [...] infection, bowel i nfection and flu 2011 [facility] Other Hisiwrs general Narrative - Reported* Type Description Date [...] infection, bowel i nfection and flu 2011 [facility] Other Hospital course Narrative No data available for this section [facility] Hospital Discharge instructions No data available for this section [facility] Hospital Discharge instructions Additional Instructions DISCHARGE [...] in an emergency, call the office at [[phone]]. TODAY -Take it easy the rest of [...] FOLLOW UP -Please call the office at [phone] to arrange an appointment to see me in 2 weeks [ ][facility] Work Phone: Hospital Discharge instructions Additional Instructions Follow any previous post-op orders.[facility] Work Phone: Progress note No data available for this section [facility] [address] Reason for visit NarrativeReferral Ajit Pettit NP Lumbar DiscNort Gallery [employer] Other Summary Purpose Family History No Family [...] Malignant neoplasm of ovary Unknown father Unknown Relationship Condition Age at Onset Recorded Date/T marilynn mother Malignant neoplasm of ovary Unknown Hypothyroidism Unknown [...] FOLLOW UP AFTER MIGUELINA SI Screening Screening f/u after physical therapy, order MRI Reason for Visit Chronic pain Lumbosacral spondylosis Sacroiliitis Chronic pain Lumbar radiculopathy Lumbosacral spondylosis Sacroiliitis Chronic pain Lumbar radiculopathy Lumbosacral spondylosis Sacroiliitis Chief Complaint back leg pain Back Pain Back Pain M47.817 FOLLOW UP AFTER MIGUELINA SI Screening Screening f/u after physical therapy, order MRI Type 2 diabetes mellitus without complication, wit Reason for Visit Chronic pain Lumbosacral spondylosis Sacroiliitis Chronic pain Lumbar radiculopathy Lumbosacral spondylosis Sacroiliitis Chronic pain Lumbar radiculopathy Lumbosacral spondylosis Sacroiliitis Chief Complaint Screening Screening f/u after physical therapy, order MRI E55.9 E11.9 M54.16 M51.06 M41.9 Reason for Visit Chronic pain Lumbar radiculopathy Lumbosacral spondylosis Sacroiliitis Chief Complaint f/u after physical t herapy, order MRI E55.9 E11.9 M54.16 M51.06 M41.9 R52 E78.00 Reason for Visit Chronic pain Lumbar radiculopathy Lumbosacral spondylosis Sacroiliitis Assessments No Assessments Information AvailableNo Assessments Information AvailableNo Assessments Information AvailableNo Assessments Information AvailableNo Assessments Information AvailableNo Assessments Information Available Additional Source Comments INFORMATION SOURCE (unrecogn ized section and content) DATE CREATED AUTHOR 07/25/2019 [facility] DATE CREATED AUTHOR AUTHOR'S ORGANIZ ATION 12/27/2022 [facility] DATE CREATED AUTHOR AUTHOR'S ORGANIZ ATION 02/15/2023 [facility] DATE CREATED AUTHOR AUTHOR'S ORGANIZ ATION 10/21/2023 [facility] EPIC DATE CREATED AUTHOR AUTHOR'S ORGANIZ ATION 07/06/2024 [facility] REASON FOR VISIT (unrecogniz ed section and content) LEFT L3,4 TRANSFORAMINAL EPIDURAL STEROID INJ/ELREF BY [facility] FOR LUMBAR DISC HERNIATIONFOLLOW UP AFTER LEFT LTRBILATERAL SACROILIAC JOINT INJECTIONINCREASE BACK PAIN RADIATING LLELEFT L3 AND L4 TRANSFORAMINAL EPIDURAL STEROID INJECTIONF/U INCREASE IN LOW BACK PAIN AND LEFT LE WEAKNESS-LOST TO FOLLOW UP LAST TIMEL4- 5 EPIDURAL STEROID INJ/ELRIGHT SACROILIAC JOINT INJ/EL Care Teams (unrecognized sec tion and content) Team Status: Inactive Member Role Status Dates Services [facility] Primary Care Provider Active Ajit E Spasic , [employer] MANUFACTURING TECHNICIAN-C Attending Provider Active Team Status: Active Member Role Status Dates Jasmin Velázquez MD Attending Provider Active Services [facility] Primary Care Provider Active Team Status: Inactive Member Role Status [facility] Primary Care Provider Ac raya Alvarado DO Emergency Provider Active Team Status: Inactive Member Role Status Dates [facility] Primary Care Provider Ac tive Ajit E Spasic , [employer] MANUFACTURING TECHNICIAN-C Attending Provider Active Team Status: Inactive Member Role Status Dates [facility] Primary Care Provider Ac raya Bergeron APRN Emergency Provider Active Team Status: Active Member Role Status [facility] Primary Care Provider Ac tive Team Status: Inactive Member Role Status Dates Ajit Cat Pettit , [employer] MANUFACTURING TECHNICIAN-C Attending Provider Active Services [facility] Primary Care Provider Ac tive Team Status: Inactive Member Role Status [facility] Primary Care Provider Ac antonetteve Kyler Miramontes MD Attending Provider Active Team Status: Inactive Member Role Status Dates Ajit Pettit , [employer] MANUFACTURING TECHNICIAN-C Attending Provider Active Team Status: Active Member Role Status Dates . [facility] Primary Care Provider Active Team Status: Inactive Member Role Status Lorie Miramontes MD Attending Provider [facility] . [facility] Active Team Status: Inactive Member Role Status Dates Ajit Cat Spasic , [employer] MANUFACTURING TECHNICIAN-C Attending Provider Active NON STAFF Primary Care Provider Active Team Status: Active Member Role Status Dates Ajit E Spasic , [employer] MANUFACTURING TECHNICIAN-C Primary Care Provider Active Team Status: Inactive Member Role Status Dates Ajit Pettit , [employer] MANUFACTURING TECHNICIAN-C Primary Care Provider, Attending Provider Active Team Status: Inactive Member Role Status Lorie Miramontes MD Attending Provider Active Ajit E Spasic , [employer] MANUFACTURING TECHNICIAN-C Primary Care Provider Active Team Status: Inactive Member Role Status Lorie Harrya E Spasic , [employer] MANUFACTURING TECHNICIAN-C Primary Care Provider Active Kyler Miramontes MD Attending Provider Active Team Status: Inactive Member Role Status Dates Ajit E Sparyanc , [employer] MANU[employer]URING TECHNICIAN-C Primary Care Provider Active Carri Hinds DO Attending Provider Active Team Status: Inactive Member Role Status Lorie Pavon MD Admit Provider Active Pastora Calderon , JULIANA Other Provider Active Sarina Danielle , JULIANA Other Provider Active Bernie Brar , JULIANA Other Provider Active Karuna Flor , JULIANA Other Provider Active Lakshmi Manzano RN Other Provider Active Tracy Sun , JULIANA Other Provider Active Silvia Galeas , GOAT FARMER Other Provider Active Evan Jackson , DO Other Provider Active Familia Blair MD Other Provider Active Brandon Dowling , DO Other Provider Active Florin Cruz MD Other Provider Active Vivi Holloway MD Other Provider Active Ilene Lopez , GOAT FARMER Other Provider Active Lilly Alexandre MD Other Provider Active Rangel Tyler MD Other Provider Active Aidan Cardenas MD Other Provider Active Holden De La Cruz MD Other Provider Active Leodan Catalan , DO Other Provider Active Palma Bright MD Other Provider Active Gabriele Vasquez MD Other Provider Active Karina Colvin , [employer] MANUFACTURING TECHNICIAN-C Other Provider Active Gaurav Peraza MD Other Provider Active Mike Guzman MD Other Provider Active Antonio Teague MD Other Provider Active Jorge Galdamez MD Other Provider Active Kourtney Longoria , DO Other Provider Active Bola Sullivan , DO Other Provider Active Lazaro Dunne , DO Other Provider Active Elvira Nava , GOAT FARMER Other Provider Active Salazar Cabrera , DO Attending Provider, Other Provider Active Naila Lema MD Other Provider Active Namrata Munoz , GOAT FARMER Other Provider Active Carole Lundy , GOAT FARMER Other Provider Active Rosanna Grullon MD Other Provider Active Girish Tolentino MD Other Provider Active Beryl Holguin , GOAT FARMER Other Provider Active Mabel Lackey , DO Other Provider Active Talita Noel , RN Other Provider Active Teo Taylor MD Other Provider Active Ajit Pettit , [employer] MANUFACTURING TECHNICIAN-C Primary Care Provider Active Team Status: Inactive Member Role Status Dates Ajit Pettit , [employer] MANUFACTURING TECHNICIAN-C Primary Care Provider Active Diego Noble DO Emergency Provider Active Team Status: Inactive Member Role Status Dates Ajit Pettit , [employer] MANUFACTURING TECHNICIAN-C Attending Provider Active Start: January 18, 2024 End: January 18, 2024 Team Status: Inactive Member Role Status Dates Ajit Pettit , [employer] MANUFACTURING TECHNICIAN-C Primary Care Provi tirso, Attending Provider Active Start: January 21, 2024 End: January 21, 2024 Team Status: Inactive Member Role Status Dates Ajit E Spasic , [employer] MANUFACTURING TECHNICIAN-C Primary Care Provi tirso, Attending Provider Active Start: February 04, 2024 End: February 04, 2024 Team Status: Inactive Member Role Status Dates Ajit Pettit , [employer] MANUFACTURING TECHNICIAN-C Primary Care Provi tirso, Attending Provider Active Start: February 09, 2024 End: February 09, 2024 Team Status: Inactive Member Role Status Dates Ajit Pettit , [employer] MANUFACTURING TECHNICIAN-C Primary Care Provider Active Start: February 21, 2024 End: February 21, 2024 Kyler Miramontes MD Attending Provider Active Sta rt: February 21, 2024 End: February 21, 2024 Team Status: Inactive Member Role Status Dates Ajit Pettit , [employer] MANUFACTURING TECHNICIAN-C Primary Care Provider Active Start: March 01, 2024 End: March 01, 2024 Kyler Miramontes MD Attending Provider Active Sta rt: March 01, 2024 End: March 01, 2024 Team Status: Active Member Role Status Dates Ajit Pettit , [employer] MANUFACTURING TECHNICIAN-C Primary Care Provider Active Start: March 01, 2024 Kyler Miramontes MD Attending Provider, Other Provider Active Start: March 01, 2024 Team Status: Inactive Member Role Status Dates Ajit Pettit , [employer] MANUFACTURING TECHNICIAN-C Primary Care Provider Active Start: March 02, 2024 End: March 02, 2024 Kyler Miramontes MD Attending Provider Active Sta rt: March 02, 2024 End: March 02, 2024 Team Status: Inactive Member Role Status Dates Ajit Pettit , [employer] MANUFACTURING TECHNICIAN-C Primary Care Provider Active Start: March 08, 2024 End: March 08, 2024 Kyler Miramontes MD Attending Provider Active Sta rt: March 08, 2024 End: March 08, 2024 Team Status: Inactive Member Role Status Dates Ajit Pettit , [employer] MANUFACTURING TECHNICIAN-C Primary Care Provider Active Start: March 16, 2024 End: March 16, 2024 Abi Sunshine DO Attending Provider Active St art: March 16, 2024 End: March 16, 2024 Team Status: Active Member Role Status Dates Ajit Pettit , [employer] MANUFACTURING TECHNICIAN-C Primary Care Provider Active Start: March 16, 2024 Abi Sunshine DO Attending Provider, Other Provider Active Start: March 16, 2024 Team Status: Inactive Member Role Status Dates Ajit E Spasic , [employer] MANUFACTURING TECHNICIAN-C Primary Care Provider Active Start: April 11, 2024 End: April 11, 2024 Alicia Villalobos NP Attending Provider Active Start: April 11, 2024 End: April 11, 2024 Team Status: Inactive Member Role Status Dates OLEG Sharp Attending Provider Active Start: May 16, 2024 End: May 16, 2024 Team Status: Inactive Member Role Status Dates Ajit Pettit NP-Jorge Primary Care Provi tirso, Attending Provider Active Start: June 08, 2024 End: June 08, 2024 Team Status: Inactive Member Role Status Dates Ajit Pettit NP-C Primary Care Provi tirso, Attending Provider Active Start: July 04, 2024 End: July 04, 2024 Goals (unrecognized section and content) Goals [...] BE BASED ON THE PRIMARY CLINICAL RECORDS. [employer] provides no warranty or guarantee of the accuracy or completeness of information in this document.
[2024-07-06 11:40] LABS: Anion Gap 13.4; BUN Creatinine Ratio 14.7; Calcium 8.9 mg/dL (8.5-10.1); Carbon Dioxide 25.4 mmol/L (21.0-32.0); Chloride 94 mmol/L (98-107); Estimated GFR (African America >60 (>=60 mL/min/1.73m^2); Estimated GFR (Non-African Ame >60 (>=60 mL/min/1.73m^2); Glucose 187 mg/dL (74-106); Potassium 3.8 mmol/L (3.5-5.1); Sodium 129 mmol/L (136-145)
[2024-07-06 11:46] LABS: Magnesium 1.5 mg/dL (1.8-2.4)
[2024-07-06 11:55] LABS: Bilirubin Urine NEGATIVE (NEGATIVE); Blood Urine NEGATIVE (NEGATIVE); Clarity Urine SL CLOUDY (CLEAR); Color Urine YELLOW (YELLOW); Glucose Urine UA >=1000 mg/dL (NEGATIVE); Ketones Urine NEGATIVE (NEGATIVE); Leukocyte Esterase Urine NEGATIVE (NEGATIVE); Nitrite Urine NEGATIVE (NEGATIVE); Protein Urine NEGATIVE (NEG/TRACE); Specific Gravity Urine >=1.030 (1.005-1.025); Urobilinogen Urine 0.2 EU/dL (0.2-1.0)
[2024-07-06 11:57] LABS: Lymphocytes Absolute Manual 4.41 10^3/uL (1.20-3.80); Segmented Neut Absolute Manual 12.88 10^3/uL (1.4-6.5)
[2024-07-06 12:01] LABS: Bacteria Urine TRACE #/HPF (NONE SEEN); Mucus Urine LARGE (NONE SEEN); WBC Urine NONE SEEN #/HPF (NONE SEEN)
[2024-07-06 12:02] LABS: Cast Seen? NONE SEEN #/LPF (NONE SEEN); Crystals Seen? None Seen #/HPF (None Seen); RBC Urine 0-2 #/HPF (0-2); Squamous Epithelial Cell Urine MANY #/LPF (NONE/RARE); Urine Culture Indicated NO
[2024-07-06 12:20] VITALS: BP 128/79; PULSE 76; O2SAT 99
== END 2024-07-06 12:20 | disposition home or self-care (01) ==
PROVIDERS: Emergency Provider Emergency Medicine
DX: E87.1 Hypo-osmolality and hyponatremia (principal); F17.200 Nicotine dependence, unspecified, uncomplicated
CPT/HCPCS: 36415; 80048; 81001; 83735; 85007; 85027; 99283

== ENCOUNTER 2024-07-15 22:54 | Emergency (ER) | payer OTHER, SELFPAY ==
[2024-07-15 22:58] VITALS: BP 138/94; PULSE 82; TEMP 36.7; O2SAT 98; BMI 24.5
[2024-07-15 23:01] LABS: Glucometer 255 mg/dL (74-106)
--- NOTE | 2024-07-15 23:08 | XR_ITS ---
The [address] [address] Patient Name: RACHEL MCGARRY MRN: [id number] date: 1980 Sex: F Assigned Patient Location: ER Current Patient Location: Accession/Order Number: [id number] Exam Date: 07/15/2024 23:22 Report Date: 07/16/2024 00:29 At the request of: ELISHA WESTFALL Procedure: XR chest 1V EXAM: XR chest 1V HISTORY: dizzy COMPARISON: Chest radiograph dated 10/07/2023. TECHNIQUE: One view of the chest was obtained. FINDINGS: The cardiac silhouette is normal in size. There is mild bibasilar atelectasis and/or scarring. There is no significant pneumothorax or pleural effusion. No acute osseous abnormality is seen. Left axillary surgical clips are noted. XR/XR chest 1V IMPRESSION: 1. Mild bibasilar atelectasis and/or scarring with otherwise clear lungs. Electronically authenticated by: Celestina SHEFFIELD Date: 07/16/2024 00:29
--- NOTE | 2024-07-15 23:08 | ECG_ITS ---
The [facility] Date: 2024-07-15 Pat Name: RACHEL MCGARRY Department: Room: - Gender: Female Transition Assistant: : 1980 Requested By: [id number] Order Number: [id number] Reading MD: PASCALE STOREY Measurements Intervals [place] Rate: 90 P: 70 KS: 148 QRS: 34 QRSD: 70 T: 6 QT: 328 QTc: 376 Interpretive Statements 1100 Sinus rhythm 9110 normal ECG Compared to ECG 04/20/2023 02:25:32 No significant changes Electronically Signed On 07-16-2024 12:02:59 EDT by PASCALE STOREY
--- NOTE | 2024-07-15 23:09 | ED_ITS ---
HPI HPI - General Adult General Chief complaint: Dizziness Stated complaint: Dizziness, Earache, Hyperglycemia Time Seen by Provider: 07/15/24 22:59 Source: patient and family Mode of arrival: walk-in Limitations: no limitations History of Present Illness HPI narrative: 44-year-old female presents to the emergency department for feeling weak and shaky and dizzy. She states her blood sugar was high at home, over 400 and she took 3 separate doses of fast acting insulin over the past few hours. It has come down to 255 on arrival. She states her ears feel pressure. She has had no fever or vomiting. She states she is fallen twice and she is concerned that her sodium has gone down again. Related Data Home Medications ?Medication ?Instructions ?Recorded ?Confirmed cariprazine 1.5 mg capsule 1.5 mg PO DAILY 04/20/23 07/15/24 (Vraylar) diazepam 5 mg tablet 5 mg PO DAILY 04/20/23 07/15/24 divalproex 250 mg tablet,delayed 250 mg PO DAILY 04/20/23 04/03/24 release divalproex 500 mg tablet,extended 500 mg PO DAILY 04/20/23 07/15/24 release 24 hr doxazosin 2 mg tablet 2 mg PO DAILY 04/20/23 07/15/24 dulaglutide 0.75 mg/0.5 mL 0.75 mg subcut DAILY 04/20/23 04/03/24 subcutaneous pen injector (Trulicity) dulaglutide 1.5 mg/0.5 mL 1.5 mg subcut DAILY 04/20/23 04/03/24 subcutaneous pen injector (Trulicity) ergocalciferol (vitamin D2) 1,250 1,250 mcg PO DAILY 04/20/23 07/15/24 mcg (50,000 unit) capsule ferrous sulfate 325 mg (65 mg 325 mg PO DAILY 04/20/23 07/15/24 iron) tablet (FeroSul) gabapentin 800 mg tablet 800 mg PO DAILY 04/20/23 07/15/24 metformin 500 mg tablet,extended 500 mg PO DAILY 04/20/23 04/03/24 release 24 hr tizanidine 4 mg capsule 8 mg PO BID PRN muscle spasticity 04/20/23 04/03/24 dulaglutide 3 mg/0.5 mL 3 mg subcut .weekly 03/26/24 07/15/24 [facility] ketorolac 10 mg tablet 10 mg PO Q6H PRN pain 03/26/24 07/15/24 meloxicam 15 mg tablet 15 mg PO DAILY 03/26/24 07/15/24 multivitamin-ferrous 1 tab PO Q24H 03/26/24 04/03/24 fumarate-folic acid 18 mg-400 mcg tablet (Spectravite Women) ondansetron HCl 4 mg tablet 4 mg PO PRN nausea and vomiting 03/26/24 sertraline 100 mg tablet 100 mg PO Q24H 03/26/24 04/03/24 simvastatin 20 mg tablet 20 mg PO DAILY 03/26/24 07/15/24 tizanidine 4 mg tablet 4 mg PO Q8H PRN muscle spasticity 03/26/24 07/15/24 Previous Rx's ?Medication ?Instructions ?Recorded tzftnvarex-snebwrjivogtl-xnuhhffr 1 cap PO Q6H PRN pain 5 days #20 04/03/24 50 mg-300 mg-40 mg capsule caps (Fioricet) Allergies Allergy/AdvReac Type Severity Reaction Status Date / Time metoclopramide (From Reglan) Allergy Intermediate shaking Verified 07/15/24 23:03 amitriptyline Allergy dizzy Verified 07/15/24 23:03 latex Allergy hives Verified 07/15/24 23:03 sulfamethoxazole (From Allergy Hives Verified 07/15/24 23:03 Bactrim) tramadol (From Ultram) Allergy seizures Verified 07/15/24 23:03 trimethoprim (From Bactrim) Allergy Hives Verified 07/15/24 23:03 Opioid HPI Opioid Management Most Recent Opioid Data: Last Pain Scale 5 04/03/24 11:16 04/03/24 Review of Systems ROS Narrative A ten point review of systems is negative except as noted above. PFSH PFSH Social History Smoking status: Current every day smoker Little interest or pleasure in doing things: not at all Feeling down, depressed, or hopeless: not at all Exam Narrative Exam Narrative: Nurses note and vital signs reviewed and patient is not hypoxic. General: The patient appears well and in no apparent distress. Patient is resting comfortably on cart. Skin: Warm, dry, no pallor noted. There is no rash noted. Head: Normocephalic, atraumatic Eye: Normal conjunctiva, no drainage Ears, Nose, Mouth, and Throat: oral mucosa is moist. Nares patent. TMs are nonerythematous. No cerumen in the ear canals and external canals are normal in appearance. Cardiovascular: Regular Rate and Rhythm Respiratory: Patient is in no distress, no accessory muscle use, lungs are clear to auscultation, no wheezing, rales or rhonchi Back: non-tender GI: Soft and nontender Musculoskeletal: The patient has no evidence of calf tenderness, no pitting edema, symmetrical pulses noted bilaterally Neurological: A&O, normal speech Psychiatric: Cooperative Constitutional Vital Signs, click to edit/add: Last Vital Signs Temp 98.0 F 07/15/24 22:58 Pulse 82 07/15/24 22:58 Resp 18 07/15/24 22:58 BP 138/94 H 07/15/24 22:58 Pulse Ox 98 07/15/24 22:58 O2 Del Method Room Air 07/15/24 22:58 Course Vital Signs Vital signs: Vital Signs Temperature 98.0 F 07/15/24 22:58 Pulse Rate 82 07/15/24 22:58 Respiratory Rate 18 07/15/24 22:58 Blood Pressure 138/94 H 07/15/24 22:58 Pulse Oximetry 98 07/15/24 22:58 Oxygen Delivery Method Room Air 07/15/24 22:58 Temperature 98.0 F 07/15/24 22:58 Pulse Rate 82 07/15/24 22:58 Respiratory Rate 18 07/15/24 22:58 Blood Pressure 138/94 H 07/15/24 22:58 Pulse Oximetry 98 07/15/24 22:58 Oxygen Delivery Method Room Air 07/15/24 22:58 Medical Decision Making [facility] Narrative Medical decision making narrative: Her workup here is negative, sodium is 134. Other blood work is essentially normal as well. Chest x-ray my interpretation showed no acute findings and EKG shows sinus rhythm without any acute change. The possibility that this is one of her medications and a side effect of it was discussed and she will follow-up with her PCP. Treatment diagnosis and follow-up were discussed thoroughly. Differential Diagnosis Differential Diagnosis: Hyponatremia, dehydration, anemia Lab Data Lab results reviewed: Yes I reviewed the patient's lab results Labs: Lab Results 07/15/24 07/15/24 07/15/24 Range/Units 23:00 23:22 23:46 WBC 13.1 H (4.0-11.0) 10^3/uL RBC 4.56 (4.20-5.40) 10^6/uL Hgb 13.8 (12.0-16.0) g/dL Hct 40.2 (36.0-48.0) % MCV 88.2 (81.0-99.0) fL MCH 30.3 (26.7-34.0) pg MCHC 34.3 (29.9-35.2) g/dL RDW 12.4 (11.0-15.0) % Plt Count 337 (150-450) 10^3/uL MPV 8.9 L (9.5-13.5) fL Neut % (Auto) 65.0 (43.0-75.0) % Lymph % (Auto) 27.8 (20.5-60.0) % [place] % (Auto) 5.6 (1.7-12.0) % Eos % (Auto) 0.8 L (0.9-7.0) % Baso % (Auto) 0.5 (0.2-2.0) % Neut # (Auto) 8.5 H (1.4-6.5) 10^3/uL Lymph # (Auto) 3.6 (1.2-3.8) 10^3/uL Dickens # (Auto) 0.7 (0.3-0.8) 10^3/uL Eos # (Auto) 0.1 (0.0-0.7) 10^3/uL Baso # (Auto) 0.1 (0.0-0.1) 10^3/uL Abs Immat Gran (auto) 0.04 H (0.00-0.03) 10^3/uL Imm/Tot Granulo (auto) 0.3 (0.0-0.5) % Sodium 134 L (136-145) mmol/L Potassium 4.1 (3.5-5.1) mmol/L Chloride 98 (98-107) mmol/L Carbon Dioxide 24.8 (21.0-32.0) mmol/L Anion Gap 15.3 BUN 12.0 (7.0-18.0) mg/dL Creatinine 0.72 (0.55-1.02) mg/dL Est GFR ( Amer) >60 (>=60 mL/min/1.73m^2) Est GFR (Non-Af Amer) >60 (>=60 mL/min/1.73m^2) BUN/Creatinine Ratio 16.7 Glucose 216 H (74-106) mg/dL Calcium 9.3 (8.5-10.1) mg/dL Urine Color Lt. yellow (YELLOW) Urine Clarity Clear (CLEAR) Urine pH 6.5 (5.0-9.0) Ur Specific [place] <=1.005 A (1.005-1.025) Urine Protein Negative (NEG/TRACE) mg/dL Urine Glucose (UA) 500 A (NEGATIVE) mg/dL Urine Ketones Negative (NEGATIVE) mg/dL Urine Occult Blood Negative (NEGATIVE) Urine Nitrite Negative (NEGATIVE) Urine Bilirubin Negative (NEGATIVE) Urine Urobilinogen 0.2 (0.2-1.0) EU/dL Ur Leukocyte Esterase Negative (NEGATIVE) POC Glucose 255 H (74-106) mg/dL Imaging Data Chest x-ray: My impression: No acute findings ECG Data Attestation: I personally reviewed and interpreted this ECG as follows: (EKG on my interpretation shows normal sinus rhythm with a rate of 90 and no acute change.) Discharge Plan Discharge Chief Complaint: Dizziness Clinical Impression: Dizziness Patient Disposition: Home, Self-Care Time of Disposition Decision: 23:59 Condition: Good Mode of Transportation: Private Vehicle Prescriptions / Home Meds: No Action Trulicity 3 mg/0.5 mL pen injector 3 mg SUBCUT .weekly ketorolac 10 mg tablet 10 mg PO Q6H PRN (Reason: pain) meloxicam 15 mg tablet 15 mg PO DAILY Spectravite Women 18-400 mg-mcg tablet 1 tab PO Q24H ondansetron HCl 4 mg tablet 4 mg PO PRN (Reason: nausea and vomiting) sertraline 100 mg tablet 100 mg PO Q24H simvastatin 20 mg tablet 20 mg PO DAILY tizanidine 4 mg tablet 4 mg PO Q8H PRN (Reason: muscle spasticity) [id number] [Fioricet] 50-300-40 mg capsule 1 cap PO Q6H PRN (Reason: pain) 5 Days Qty: 20 0RF Vraylar 1.5 mg capsule 1.5 mg PO DAILY diazepam 5 mg tablet 5 mg PO DAILY divalproex 250 mg tablet,delayed release (DR/EC) 250 mg PO DAILY divalproex 500 mg tablet extended release 24 hr 500 mg PO DAILY doxazosin 2 mg tablet 2 mg PO DAILY Trulicity 0.75 mg/0.5 mL pen injector 0.75 mg SUBCUT DAILY Trulicity 1.5 mg/0.5 mL pen injector 1.5 mg SUBCUT DAILY ergocalciferol (vitamin D2) 1,250 mcg (50,000 unit) capsule 1,250 mcg PO DAILY ferrous sulfate [FeroSul] 325 mg (65 mg iron) tablet 325 mg PO DAILY gabapentin 800 mg tablet 800 mg PO DAILY tizanidine 4 mg capsule 8 mg PO BID PRN (Reason: muscle spasticity) metformin 500 mg tablet extended release 24 hr 500 mg PO DAILY Print Language: Armenian Instructions: Dizziness (ED) Additional Instructions: Follow-up with your family doctor, call them on Wednesday Referrals: [facility] [Primary Care Provider] - 1 week
--- OUTSIDE RECORDS SUMMARY | 2024-07-15 23:11 | XMS_ITS | CCD ---
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 of myocardial infarction. (Access High Sensitivity Troponin I Instructions For Use, Gustavo Sweeny, May 2018) Urea nitrogen [Mass/Vol] 9 mg/dL Normal 5 - 21 mg/dL Remisol Chem Urea nitrogen/Creatinine [Mass ratio] 18 mg/mg Normal 10 - 20 Remisol Chem COAGULATIONOrdered By: Jazmyne Phillips on 07-09-2024 aPTT Coag (PPP) [Time] 28.9 s Normal 25.1 - 36.5 second(s) [facility] [place] [place] Auto Coag Comment on above: Interpretive Data: P arameter 15 days - 4 weeks 1 - 5 months 6 - 11 months 1 - 5 years 6 - 10 years 11 - 17 years PTT Mean: 35.4 (27.6-45.6) Mean: 33.5 (24.8-40.7) Mean: 32.4 (25.1-40.7) Mean: 31.6 (24.0-39.2) Mean: 31.6 (26.9-38.7) Mean: 31.0 (24.6-38.4) Pediatric Reference ranges were obtained from a study by Vishal Lang et al. prepared from 1437 samples obtained at 7 different centers using the same coagulation reagent and instrumentation as [facility] [place] [place]. Currently there are no coagulation studies available worldwide for children to 14 days, and no normal ranges. Heparin therapeutic range (represented by Anti-Factor Xa activity of 0.2 - 0.4 U/mL) corresponds to PTT of 56.6 - 109.0 sec. INR Coag (PPP) [Relative time] 0.85 {INR} Invalid Interpretation Code [facility] [place] [place] Auto Coag Comment on above: Interpretive Data: I NR results are specifically intended to assess patients stabilized on long-term Anticoagulation therapy suggested INR s Less Intensive Anticoagulation 2.0 3.0 Conventional Range 3.0 4.5 PT Coag (PPP) [Time] 9.5 s Normal 9.4 - 1 2.5 second(s) [facility] [place] [place] Auto Coag Comment on above: Interpretive Data: 1 5 days - 4 weeks 1 - 5 months 6 -11 months 1 5 years 6 10 years 11 -17 years Mean: 11.2 (9.5 12.6) Mean: 11.0 (9.7 12.8) Mean: 11.0 (9.8 13.0) Mean: 11.3 (9.9 13.4) Mean: 11.7 (10.0 14.6) Mean: 11.8 (10.0 - 14.1) Pediatric Reference ranges were obtained from a study by Vishal Lang et al. prepared from 1437 samples obtained at 7 different centers using the same coagulation reagent and instrumentation as [facility] [place] [place]. Currently there are no coagulation studies available worldwide for children to 14 days, and no normal ranges. ED Clinical Summaryon 2023 ED Clinical Summary ED Clinical Summary [address] [id number] ED Clinical Summary Person Information Name: RACHEL MCGARRY [facility] Age: 44 Years : 1980 Sex: Female Language: Cuban PCP: AJIT PETTIT CNP Marital Status: Phone: [phone] Visit Id: Visit Reason: Syncope/Near syncope; Body aches; Weakness or fatigue; dizzy, lightheaded, tired Speciality: Acuity: 3 Enc Type: Emergency Med Service: Emergency Arrival: 07/09/2024 12:39:08 Discharge: 07/09/2024 15:24:53 LOS: 000 02:45 Checkin: 07/09/2024 12:39:08 Checkout: 07/09/2024 15:24:53 Dispo Type: Home (Routine DC) EVENTS: Event Name Event Status Request Date/Time Start Date/Time Complete Date/Time Arrive Complete 07/09/2024 12:39:08 07/09/2024 12:39:08 07/09/2024 12:39:08 Document Home Meds Request 07/09/2024 12:39:08 Triage Complete 07/09/2024 12:39:08 07/09/2024 12:47:16 07/09/2024 12:47:16 Bed Assign Complete 07/09/2024 12:41:36 07/09/2024 12:41:36 07/09/2024 12:41:36 Dr Exam Complete 07/09/2024 12:41:36 07/09/2024 13:18:04 07/09/2024 13:18:04 RN Exam Complete 07/09/2024 12:41:36 07/09/2024 12:54:19 07/09/2024 12:54:19 EKG Complete 07/09/2024 12:46:20 07/09/2024 13:03:11 Pending Labs Complete 07/09/2024 13:08:47 07/09/2024 15:03:55 Lab Complete 07/09/2024 13:08:47 07/09/2024 13:58:16 Patient Care Request 07/09/2024 13:08:47 RT Request 07/09/2024 13:08:47 X-Ray Complete 07/09/2024 13:08:47 07/09/2024 13:22:10 07/09/2024 13:32:08 Pending Labs Complete 07/09/2024 13:16:31 07/09/2024 13:16:31 07/09/2024 13:42:21 Lab Complete 07/09/2024 13:16:31 07/09/2024 13:16:31 07/09/2024 13:42:21 Registration Complete 07/09/2024 13:18:04 07/09/2024 13:20:48 07/09/2024 13:20:48 Reg Complete Request 07/09/2024 13:20:48 Reg Bed Request Complete 07/09/2024 13:20:48 07/09/2024 13:20:48 07/09/2024 13:20:48 Wet Read Request 07/09/2024 13:32:08 Discharge Complete 07/09/2024 14:17:25 07/09/2024 15:24:59 07/09/2024 15:24:59 Transfer Complete 07/09/2024 15:24:59 07/09/2024 15:24:59 07/09/2024 15:24:59 ADDRESS: [address] [place] [phone] PHYS DOC NOTES: MEDICAL INFORMATION: Prescriptions Given: Medications to Continue with No Changes Other Medications acetaminophen acetaminophen (Tylenol) By Mouth. cephalexin (Keflex [...] mg ER Tab) By Mouth every day. doxazosin (doxazosin 2 mg Tab) 1 Tablets By Mouth every day. Refills: 3. ergocalciferol (Vitamin D) By Mouth. gabapentin (gabapentin [...] mg Tab) By Mouth every 8 hours. PATIENT EDUCATION INFORMATION: Instructions: Dehydration, Adult; Viral Illness, Adult Follow up: With: Address: When: AJIT PETTIT [address] [place] [address] Business (1) In 3 days 07/12/2024 Comments: Call the office of your primary care doctor to arrange for follow-up within the above-stated timeframe. Follow-up with your primary care doctor about this ED visit. You should review your labs, imaging, and diagnoses from this ED visit with your primary care physician. There are occasionally non-emergent findings that require additional follow-up after your ED visit. If you were prescribed medications you should discuss possible side-effects and drug interactions with your pharmacist. Call 911 or go to the nearest Emergency Department if you develop any new or worsening symptoms. DIAGNOSIS: Malaise; Viral syndrome Normal [facility] ED Clinical Summary ED Clinical Summary [address] [address] ED Clinical Summary Person Information Name: RACHEL MCGARRY [facility] Age: 44 Years : 1980 Sex: Female Language: Cuban PCP: AJIT PETTIT CNP Marital Status: Phone: [phone] Visit Id: Visit Reason: Syncope/Near syncope; Body aches; Weakness or fatigue; dizzy, lightheaded, tired Speciality: Acuity: 3 Enc Type: Emergency Med Service: Emergency Arrival: 07/09/2024 12:39:08 Discharge: LOS: 000 01:38 Checkin: 07/09/2024 12:39:08 Checkout: Dispo Type: EVENTS: Event Name Event Status Request Date/Time Start Date/Time Complete Date/Time Arrive Complete 07/09/2024 12:39:08 07/09/2024 12:39:08 07/09/2024 12:39:08 Document Home Meds Request 07/09/2024 12:39:08 Triage Complete 07/09/2024 12:39:08 07/09/2024 12:47:16 07/09/2024 12:47:16 Bed Assign Complete 07/09/2024 12:41:36 07/09/2024 12:41:36 07/09/2024 12:41:36 Dr Exam Complete 07/09/2024 12:41:36 07/09/2024 13:18:04 07/09/2024 13:18:04 RN Exam Complete 07/09/2024 12:41:36 07/09/2024 12:54:19 07/09/2024 12:54:19 EKG Complete 07/09/2024 12:46:20 07/09/2024 13:03:11 Pending Labs Inlab 07/09/2024 13:08:47 Lab Complete 07/09/2024 13:08:47 07/09/2024 13:58:16 Patient Care Request 07/09/2024 13:08:47 RT Request 07/09/2024 13:08:47 X-Ray Complete 07/09/2024 13:08:47 07/09/2024 13:22:10 07/09/2024 13:32:08 Pending Labs Complete 07/09/2024 13:16:31 07/09/2024 13:16:31 07/09/2024 13:42:21 Lab Complete 07/09/2024 13:16:31 07/09/2024 13:16:31 07/09/2024 13:42:21 Registration Complete 07/09/2024 13:18:04 07/09/2024 13:20:48 07/09/2024 13:20:48 Reg Complete Request 07/09/2024 13:20:48 Reg Bed Request Complete 07/09/2024 13:20:48 07/09/2024 13:20:48 07/09/2024 13:20:48 Wet Read Request 07/09/2024 13:32:08 Discharge Request 07/09/2024 14:17:25 ADDRESS: [address] [place] [phone] PHYS DOC NOTES: MEDICAL INFORMATION: Prescriptions Given: Medications to Continue with No Changes Other Medications acetaminophen acetaminophen (Tylenol) By Mouth. cephalexin (Keflex [...] mg ER Tab) By Mouth every day. doxazosin (doxazosin 2 mg Tab) 1 Tablets By Mouth every day. Refills: 3. ergocalciferol (Vitamin D) By Mouth. gabapentin (gabapentin [...] mg Tab) By Mouth every 8 hours. PATIENT EDUCATION INFORMATION: Instructions: Dehydration, Adult; Viral Illness, Adult Follow up: With: Address: When: AJIT PETTIT [address] [facility] [place] [place] [address] [facility] ([address] In 3 days 07/12/2024 Comments: Call the office of your primary care doctor to arrange for follow-up within the above-stated timeframe. Follow-up with your primary care doctor about this ED visit. You should review your labs, imaging, and diagnoses from this ED visit with your primary care physician. There are occasionally non-emergent findings that require additional follow-up after your ED visit. If you were prescribed medications you should discuss possible side-effects and drug interactions with your pharmacist. Call 911 or go to the nearest Emergency Department if you develop any new or worsening symptoms. DIAGNOSIS: Malaise; Viral syndrome Normal [facility] ED Note-Physicianon 07-09-20 ED Note-Physician ED Note-Physician Basic Information Time Seen: Ambrose Cedeño DO. 07/09/2024 13:18 Chief Complaint really shakey, light headed and I feel llike I'm gonna pass out . pt verbalized has been sick for 1 week and been to two different hospitals and diagnosised wiht low sodium and elevated WBC. pt had CT of abd and x-ray and went to [facility] and [place] History of Present Illness 44-year-old female to the emergency department with chief complaint of feeling unwell for the last week. She reports she has had malaise, fatigue, intermittently shaky, felt lightheaded earlier. She reports that she has been seen both at [facility] and some urgency department in [facility] emergency department this week for this complaint. She has had CT imaging of her abdomen pelvis, multiple chest x-rays, multiple sets of labs, multiple sets of cardiac enzymes, multiple urinalysis. They told her that her white count is mildly high and that her sodium was slightly low. She came to the ER today because she would just like to feel better . Review of Systems A 10 point review of systems is negative except as noted above. Medical and Surgical History: Reviewed and noted Social history: Lives at home Tobacco: Denies Physical Exam Vitals & Measurements T: 36.8 ?C(Oral) HR: 79(Monitored) RR: 18 BP: 106/89 SpO2: 99% HT: 165.10 cm WT: 70.8 kg BMI: 25.97 VITALS: I have reviewed the triage vital signs. GENERAL: Well developed, well appearing adult in no acute distress. NEURO: Alert and oriented. Moves all extremities. Face is symmetric and expressive. EYES: PERRL. No scleral icterus or conjunctival injection. No discharge. HENT: Normocephalic, atraumatic. Hearing is grossly intact. Nares grossly patent and without discharge. Mucous membranes moist. NECK: No JVD. Patient moves neck without restriction. CARDIO: Rhythm regular. Normal rate. No murmur, rub, or gallop. Pulses equal bilaterally in the upper and lower extremity. No lower extremity edema. PULM: Lungs clear to auscultation in all tolbert. No wheezes, rales, or rhonchi. No conversational dyspnea. No splinting, stridor, or accessory muscle use. GI/: Abdomen is soft and non-tender. Normoactive bowel sounds. EXTREMITIES: Symmetric muscle bulk. No joint swelling. No clubbing, cyanosis, or deformity. SKIN: Warm and dry. Normal turgor. No rash or lesions appreciated. PSYCH: Mood, affect, and interaction is appropriate to the setting. Medical Decision Making Well-appearing 44-year-old female to the emergency department with chief complaint of malaise, fatigue, lightheadedness. Vital stable, the patient is afebrile. Patient is well-appearing and in no distress. She does not appear dry clinically. Previous labs and imaging from [facility] in [facility] reviewed. Aside from her mild leukocytosis and mild hyponatremia there are no other acute findings. Imaging without any acute findings. Will repeat some basic labs today. There is a national shortage on IV fluids at the time of this visit and the patient does not have any obvious indication to receive intravenous fluids as she can tolerate oral intake and does not appear dehydrated. CBC with slight leukocytosis, down from previous labs at [facility] and [facility]. Otherwise unremarkable. Mild hyponatremia which appears in line with the patient's baseline. Troponin is negative. hCG negative. Chest x-ray is without acute findings. Discussed findings with the patient. Likely viral syndrome. Recommended increase fluids, rest, Tylenol or ibuprofen at home. Recommended follow-up with her PCP. Return precautions were discussed. All questions were answered. The patient was discharged home. Assessment/Plan Malaise (R53.81: Other malaise) Viral syndrome (B34.9: Viral infection, unspecified) Orders: Basic Metabolic Panel Beta hCG Qual CBC w/ Auto Diff ED Cardiac Monitoring eGFR Hepatic Function Panel Oxygen Saturation Oxygen Therapy PT & PTT Saline Lock Insert Troponin 0 Hr. Troponin 1 Hr. XR Chest Single View Disposition Plan Patient Discharge Condition Stable Discharge Disposition Home Discharge Prescription List Prescriptions No active prescription medications Follow-up With When Contact Information AJIT PETTIT In 3 days 07/12/2024 EDT [address] [place] [address]- Business (1) Additional Instructions: Call the office of your primary care doctor to arrange for follow-up within the above-stated timeframe. Follow-up with your primary care doctor about this ED visit. You should review your labs, imaging, and diagnoses from this ED visit with your primary care physician. There are occasionally non-emergent findings that require additional follow-up after your ED visit. If you were prescribed medications you should discuss possible side-effects and drug interactions with your pharmacist. Call 911 or go to the nearest Emergency Department if you develop any new or worsening symp (more content not included)... Normal [facility] Comment on above: Result Comment: Elec tronically Signed By: Ambrose Cedeño DO\.br\Date and Time Signed: 07/09/24 14:21 EDT ED Patient Summaryon 024 ED Patient Summary ED Patient Summary [address] [address] Patient Discharge Instructions Person Information Name: RACHEL MCGARRY Age: 44 Years Arrival Date: 07/09/2024 12:39:08 Discharge Diagnosis: Malaise; Viral syndrome Primary Care Physician: AJIT PETTIT CNP Provider Information Primary Provider: Ambrose Cedeño DO Advanced Manager Product:None The exam and treatment you received in the Emergency Department were for an urgent problem and are not intended as complete care. It is important that you follow up with a doctor, nurse practitioner, or physician?s floral assistant for ongoing care. If your symptoms become worse or you do not improve as expected and you are unable to reach your usual health care provider, you should return to the Emergency Department. We are available 24 hours a day. RACHEL MCGARRY has been given the following list of patient education materials, prescriptions and follow-up instructions: Follow-up Instructions: With: Address: When: AJIT PETTIT [address] [place] [address] [employer] (1) In 3 days 07/12/2024 Comments: Call the office of your primary care doctor to arrange for follow-up within the above-stated timeframe. Follow-up with your primary care doctor about this ED visit. You should review your labs, imaging, and diagnoses from this ED visit with your primary care physician. There are occasionally non-emergent findings that require additional follow-up after your ED visit. If you were prescribed medications you should discuss possible side-effects and drug interactions with your pharmacist. Call 911 or go to the nearest Emergency Department if you develop any new or worsening symptoms. In the event that this physician does not participate in your insurance network, please consult with your insurance company to find a nearby participating provider. Patient Education Materials: Dehydration, Adult; Viral Illness, Adult A MESSAGE TO ALL PATIENTS REGARDING OPIOIDS PRESCRIPTION OPIOIDS: WHAT YOU NEED TO KNOW Prescription opioids can be used to help relieve hzaihngd-fy-wurkpv pain and are often prescribed following a surgery or injury, or for certain health conditions. These medications can be an important part of the treatment but also come with serious risks. It is important to work with your healthcare provider to make sure you are getting the safest, most effective care. WHAT ARE THE RISKS AND SIDE EFFECTS OF OPIOID USE? Prescription opioids carry serious risks of addiction and overdose, especially with prolonged use. An opioid overdose, often marked by slowed breathing, can cause sudden . The use of prescription opioids can have a number of side effects as well, even when taken as directed: ? Tolerance?meaning you might need to take more of the medication for the same pain relief ? Physical dependence?meaning you have symptoms of withdrawal when a medication is stopped ? Increased sensitivity to pain ? Constipation ? Nausea, vomiting, and dry mouth ? Sleepiness and dizziness ? Confusion ? Depression ? Low levels of testosterone that can result in lower sex drive, energy, and strength ? Itching and sweating RISKS ARE GREATER WITH: ? History of drug misuse, substance use disorder, or overdose ? Mental health conditions (such as depression or anxiety) ? Sleep apnea ? Older age (65 years and older) ? Avoid alcohol while taking prescription opioids. Also, unless specifically advised by your health care provider, medications to avoid include: ? Benzodiazepines (such as Xanax or Valium) ? Muscle relaxants (such as Soma or Flexeril) ? Hypnotics (such as Ambien or Lunesta) ? Other prescription opioids KNOW YOUR OPTIONS Talk to your health care provider about ways to manage your pain that don?t involve prescription opioids. Some of these options may actually work better and have fewer risks and side effects. Options may include: ? Pain relievers such as acetaminophen, ibuprofen, and naproxen ? Some medication that are also used for depression or seizures ? Physical therapy and exercise ? Cognitive behavioral therapy, a psychological, goal-directed approach, in which patients learn how to modify physical, behavioral, and emotional triggers of pain and stress. IF YOU ARE PRESCRIBED OPIOIDS FOR PAIN: ? Never take opioids in greater amounts or more often than prescribed. ? Follow up with your primary health care provider. o Work together to create a plan on how to manage your pain. o Talk about ways to help manage your pain that don?t involve prescription opioids. o Talk about any and all concerns and side effects. ? Help prevent misuse and abuse o Never sell or share prescription opioids. o Never use another person?s prescription opioids. ? Store prescription opioids in a secure place a (more content not included)... Normal [facility] ED Patient Summary ED Patient Summary [address] [address] Patient Discharge Instructions Person Information Name: RACHEL MCGARRY Age: 44 Years Arrival Date: 07/09/2024 12:39:08 Discharge Diagnosis: Malaise; Viral syndrome Primary Care Physician: AJIT PETTIT CNP Provider Information Primary Provider: Ambrose Cedeño DO Advanced Manager Product:Jenny The exam and treatment you received in the Emergency Department were for an urgent problem and are not intended as complete care. It is important that you follow up with a doctor, nurse practitioner, or physician?s floral assistant for ongoing care. If your symptoms become worse or you do not improve as expected and you are unable to reach your usual health care provider, you should return to the Emergency Department. We are available 24 hours a day. RACHEL MCGARRY has been given the following list of patient education materials, prescriptions and follow-up instructions: Follow-up Instructions: With: Address: When: AJIT PETTIT [address] [place] [address] [facility] (1) In 3 days 07/12/2024 Comments: Call the office of your primary care doctor to arrange for follow-up within the above-stated timeframe. Follow-up with your primary care doctor about this ED visit. You should review your labs, imaging, and diagnoses from this ED visit with your primary care physician. There are occasionally non-emergent findings that require additional follow-up after your ED visit. If you were prescribed medications you should discuss possible side-effects and drug interactions with your pharmacist. Call 911 or go to the nearest Emergency Department if you develop any new or worsening symptoms. In the event that this physician does not participate in your insurance network, please consult with your insurance company to find a nearby participating provider. Patient Education Materials: Dehydration, Adult; Viral Illness, Adult A MESSAGE TO ALL PATIENTS REGARDING OPIOIDS PRESCRIPTION OPIOIDS: WHAT YOU NEED TO KNOW Prescription opioids can be used to help relieve vqpaltfr-by-nqqcko pain and are often prescribed following a surgery or injury, or for certain health conditions. These medications can be an important part of the treatment but also come with serious risks. It is important to work with your healthcare provider to make sure you are getting the safest, most effective care. WHAT ARE THE RISKS AND SIDE EFFECTS OF OPIOID USE? Prescription opioids carry serious risks of addiction and overdose, especially with prolonged use. An opioid overdose, often marked by slowed breathing, can cause sudden . The use of prescription opioids can have a number of side effects as well, even when taken as directed: ? Tolerance?meaning you might need to take more of the medication for the same pain relief ? Physical dependence?meaning you have symptoms of withdrawal when a medication is stopped ? Increased sensitivity to pain ? Constipation ? Nausea, vomiting, and dry mouth ? Sleepiness and dizziness ? Confusion ? Depression ? Low levels of testosterone that can result in lower sex drive, energy, and strength ? Itching and sweating RISKS ARE GREATER WITH: ? History of drug misuse, substance use disorder, or overdose ? Mental health conditions (such as depression or anxiety) ? Sleep apnea ? Older age (65 years and older) ? Avoid alcohol while taking prescription opioids. Also, unless specifically advised by your health care provider, medications to avoid include: ? Benzodiazepines (such as Xanax or Valium) ? Muscle relaxants (such as Soma or Flexeril) ? Hypnotics (such as Ambien or Lunesta) ? Other prescription opioids KNOW YOUR OPTIONS Talk to your health care provider about ways to manage your pain that don?t involve prescription opioids. Some of these options may actually work better and have fewer risks and side effects. Options may include: ? Pain relievers such as acetaminophen, ibuprofen, and naproxen ? Some medication that are also used for depression or seizures ? Physical therapy and exercise ? Cognitive behavioral therapy, a psychological, goal-directed approach, in which patients learn how to modify physical, behavioral, and emotional triggers of pain and stress. IF YOU ARE PRESCRIBED OPIOIDS FOR PAIN: ? Never take opioids in greater amounts or more often than prescribed. ? Follow up with your primary health care provider. o Work together to create a plan on how to manage your pain. o Talk about ways to help manage your pain that don?t involve prescription opioids. o Talk about any and all concerns and side effects. ? Help prevent misuse and abuse o Never sell or share prescription opioids. o Never use another person?s prescription opioids. ? Store prescription opioids in a secure place a (more content not included)... Normal [facility] HEMATOLOGYOrdered By: SYSTEM SYSTEM on 07-09-2024 Basophils/100 WBC (Bld) 1.0 % Normal 0.0 - 2.0 % [facility] Heme Basophils/Leukocytes Auto (Bld) [Pure # fraction] 0.2 E9/L Normal 0.0 - 0.2 E9/L [facility] Eosinophils (Bld) [#/Vol] 0.1 E9/L Normal 0.0 - 0.5 E9/L [facility] Eosinophils/100 WBC (Bld) 0.8 % Normal 0.0 - 8.0 % [facility]e Erythrocyte distribution width (RBC) [Ratio] 13.2 % Normal 10.9 - 14.2 % [facility] Hematocrit (Bld) [Volume fraction] 38.9 % Normal 34.0 - 46.0 % [facility] Hemoglobin (Bld) [Mass/Vol] 13.4 g/dL Normal 12.0 - 16.0 gm/dL [facility] Lymphocytes (Bld) [#/Vol] 3.7 E9/L Normal 1.0 - 4.0 E9/L [facility] Lymphocytes/100 WBC (Bld) 24.7 % Normal 14.0 - 50.0 % [facility] MCH (RBC) [Entitic mass] 30.4 pg Normal 27.0 - 34.0 pg [facility] MCHC (RBC) [Mass/Vol] 34.5 g/dL Normal 31.4 - 36.0 gm/dL [facility] MCV (RBC) [Entitic vol] 88.1 fL Normal 80.0 - 100.0 fL [facility]e Monocytes (Bld) [#/Vol] 0.7 E9/L Normal 0.2 - 1.0 E9/L [facility]e Monocytes/100 WBC (Bld) 4.4 % Normal 4.0 - 14.0 % [facility]e Neutrophils (Bld) [#/Vol] 10.3 E9/L High 2.0 - 7.5 E9/L [facility] Neutrophils/100 WBC (Bld) 69.1 % Normal 36.0 - 75.0 % [facility] Platelet mean volume (Bld) [Entitic vol] 8.3 fL Normal 6.4 - 10.8 fL [facility] Platelets (Bld) [#/Vol] 319.0 E9/L Normal 150. 0 - 500.0 E9/L [facility] RBC (Bld) [#/Vol] 4.4 E12/L Normal 4.3 - 5.9 E12/L [facility] WBC corrected for nucl RBC Auto (Bld) [#/Vol] 14.9 E9/L High 4.0 - 11.0 E9/L [facility] Comment on above: Result Comment: Kaela pheral smear review performed. Hep Func Panelon 07-09-2024 Albumin [Mass/Vol] 4.0 g/dL Normal 3.3-5.0 [facility] Comment on above: Performed By: #### 2 [id number] #### [facility] [address] [place] [address] Albumin/Globulin (S) [Mass conc ratio] 1.3 Normal 1.1-2.2 [facility] Comment on above: Performed By: #### 2 [id number] #### [facility] [address] [place] [address] ALP [Catalytic activity/Vol] 65 Int._Unit/L Normal 21-98 [facility] Comment on above: Performed By: #### 2 [id number] #### [facility] [address] [place] [address] ALT No additional P-5'-P [Catalytic activity/Vol] 10 Int._Unit/L Normal 6-46 [facility] Comment on above: Performed By: #### 2 [id number] #### [facility] [address] [place] [address] AST [Catalytic activity/Vol] 11 Int._Unit/L Normal 5-43 [facility] Comment on above: Performed By: #### 2 [id number] #### [facility] [address] [place] [address] Bilirubin [Mass/Vol] 0.2 mg/dL Normal 0.0-1.1 [facility] Comment on above: Performed By: #### 2 [id number] #### [facility] [address] [place] [address] Bilirubin.direct [Mass/Vol] 0.0 mg/dL Normal 0.0-0.4 [facility] Comment on above: Performed By: #### 2 [id number] #### [facility] [address] [place] [address] Bilirubin.indirect [Mass or moles/Vol] 0.2 mg/dL Normal 0.1-0.9 [facility] Comment on above: Performed By: #### 2 [id number] #### [facility] [address] [place] [address] Globulin (S) [Mass/Vol] 3.2 g/dL Normal 1.4-4.0 [facility] Comment on above: Performed By: #### 2 [id number] #### [facility] [address] [place] [address] Protein [Mass/Vol] 7.2 g/dL Normal 6.0-7.8 [facility] Comment on above: Performed By: #### 2 [id number] #### [facility] [address] [place] [address] PT & PTTon 07-09-2024 aPTT Coag (PPP) [Time] 28.9 second(s) Normal 25.1-36.5 [facility] Comment on above: Result Comment: Para meter 15 days - 4 weeks 1 - 5 months 6 - 11 months 1 - 5 years 6 - 10 years 11 - 17 years PTT Mean: 35.4 (27.6-45.6) Mean: 33.5 (24.8-40.7) Mean: 32.4 (25.1-40.7) Mean: 31.6 (24.0-39.2) Mean: 31.6 (26.9-38.7) Mean: 31.0 (24.6-38.4) Pediatric Reference ranges were obtained from a study by lc Alonzo prepared from 1437 samples obtained at 7 different centers using the same coagulation reagent and instrumentation as [facility] [place] [place]. Currently there are no coagulation studies available worldwide for children to 14 days, and no normal ranges. Heparin therapeutic range (represented by Anti-Factor Xa activity of 0.2 - 0.4 U/mL) corresponds to PTT of 56.6 - 109.0 sec. Performed By: #### 1 [id number] #### [facility] [address] [place] [address] INR Coag (PPP) [Relative time] 0.85 {INR} Invalid Interpretation Code [facility] Comment on above: Result Comment: INR results are specifically intended to assess patients stabilized on long-term Anticoagulation therapy suggested INR?s ?Less Intensive Anticoagulation? 2.0 ? 3.0 Conventional Range 3.0 ? 4.5 Performed By: #### 1 [id number] #### [facility] [address] [place] [address] PT Coag (PPP) [Time] 9.5 second(s) Normal 9.4-12.5 [facility] Comment on above: Result Comment: 15 d ays - 4 weeks 1 - 5 months 6 -11 months 1 ? 5 years 6 ? 10 years 11 -17 years Mean: 11.2 (9.5 ? 12.6) Mean: 11.0 (9.7 ? 12.8) Mean: 11.0 (9.8 ? 13.0) Mean: 11.3 (9.9 ? 13.4) Mean: 11.7 (10.0 ? 14.6) Mean: 11.8 (10.0 - 14.1) Pediatric Reference ranges were obtained from a study by lc Alonzo prepared from 1437 samples obtained at 7 different centers using the same coagulation reagent and instrumentation as [facility] [place] [place]. Currently there are no coagulation studies available worldwide for children to 14 days, and no normal ranges. Performed By: #### 1 [id number] #### [facility] [address] [place] [address] SEROLOGYOrdered By: Rosanna Phillips on 07-09-2024 Beta HCG ( test) Ql Negative (07/09/24 12:50 PM) Normal [facility] [place] [place] Man Sero Troponin 0 Hr.on 07-09-2024 Troponin HS 3.00 pg/mL Low 10.10-27.1 0 [facility] Comment on above: Result Comment: The 95% CI (Confidence Interval) PPV (Positive Predictive Value) for myocardial infarction in females is 38 pg/mL, in males 51 pg/mL. The results should be used in conjunction with clinical conditions of myocardial infarction. (Access High Sensitivity Troponin I Instructions For Use, [employer], May 2018) Performed By: #### 1 [id number] #### [facility] [address] [place] [address] Troponin 1 Hr.on 07-09-2024 Troponin HS 3.60 pg/mL Low 10.10-27.1 0 [facility] Comment on above: Result Comment: The 95% CI (Confidence Interval) PPV (Positive Predictive Value) for myocardial infarction in females is 38 pg/mL, in males 51 pg/mL. The results should be used in conjunction with clinical conditions of myocardial infarction. (Access High Sensitivity Troponin I Instructions For Use, [employer], May 2018) Performed By: #### 1 [id number] #### [facility] [address] [place] [address] XR Chest Single Viewon 07-09 XR Chest Single View Exam Date/Time: 07/09/2024 13:32 EDT Reason for Exam: Chest pain Report IMPRESSION: NO EVIDENCE OF ACTIVE CARDIOPULMONARY DISEASE, BY PORTABLE CHEST RADIOGRAPHY. EXAM: XR Chest Single View DATE: 07/09/2024 1:22 PM CLINICAL HISTORY: Chest pain. COMPARISON: None available. TECHNIQUE: A portable upright AP radiograph of the chest was obtained. FINDINGS: There is no significant pulmonary infiltrate, cardiomegaly, vascular congestion, sizable pleural effusion, pneumothorax, or displaced fractures identified. Ordering Provider: Ambrose Cedeño FINAL REPORT Dictated: 07/09/2024 2:27 pm Meng Terrazas MD Signed (Electronic Signature): 07/09/2024 2:27 pm Signed by: Meng Terrazas MD Transcribed by: ELIZABETH Technologist: WALDEMAR Technical Comments Radiation Dose: Ka,r in mGy = na DAP = na Normal [facility] eGFRon 07-09-2024 eGFR 117 mL/min/1.73 m2 Normal >=59 [facility] Comment on above: Performed By: #### 1 [id number] #### [facility] [address] [place] [address] Alanine aminotransferase [En zymatic activity/volume] in Serum or PlasmaOrdered By: Jono Ferrari on 07-06-2024 ALT [Catalytic activity/Vol] 9 U/L Normal 7-52 [facility] Comment on above: Performed By: #### C BC, CMP, LDLD, FE and TIBC, LIPID, URMA #### [facility] [address] [place] [address] [place] Albumin [Mass/volume] in Ser um or Plasma by Bromocresol green (BCG) dye binding methoOrdered By: Jono Ferrari on 07-06-2024 Albumin BCG dye [Mass/Vol] 4.2 g/dL 3.5-5.7 [facility] Alkaline phosphatase [Enzyma tic activity/volume] in Serum or PlasmaOrdered By: Jono Ferrari on 07-06-2024 ALP [Catalytic activity/Vol] 59 U/L Normal 34-104 [facility] Comment on above: Performed By: #### C BC, CMP, LDLD, FE and TIBC, LIPID, URMA #### [facility] [address] [place] [address] [place] Aspartate aminotransferase [ Enzymatic activity/volume] in Serum or PlasmaOrdered By: Jono Ferrari on 07-06-2024 AST [Catalytic activity/Vol] 10 U/L Low 13-39 [facility] Comment on above: Performed By: #### C BC, CMP, LDLD, FE and TIBC, LIPID, URMA #### [facility] [address] Automated basophil %Ordered By: Jono Ferrari on 07-06-2024 Basophils/100 WBC (Bld) 1.1 % Normal . [facility] Comment on above: Performed By: #### C BC, CMP, LIPASE ####[address] Automated basophil countOrde red By: Jono Ferrari on 07-06-2024 Basophils (Bld) [#/Vol] 0.3 10*3/uL High 0.0-0.2 [facility] Comment on above: Result Comment: PERF ORMED BY: [facility] [address] [place] [address] PATHOLOGIST [employer] RIDGE HUERTA M.D. Performed By: #### C BC, CMP, LIPASE ####[address] Automated blood monocyte cou ntOrdered By: Jono Ferrari on 07-06-2024 Monocytes (Bld) [#/Vol] 1.6 10*3/uL High 0.0-0.8 [facility] Comment on above: Performed By: #### C BC, CMP, LIPASE ####[address] Automated eosinophil %Ordere d By: Jono Ferrari on 07-06-2024 Eosinophils/100 WBC (Bld) 0.6 % Normal . [facility] Comment on above: Performed By: #### C BC, CMP, LIPASE ####[address] Automated eosinophil countOr dered By: Jono Ferrari on 07-06-2024 Eosinophils (Bld) [#/Vol] 0.1 10*3/uL Normal 0.0-0.45 [facility] Comment on above: Performed By: #### C BC, CMP, LIPASE ####[address] Automated monocyte %Ordered By: Jono Ferrari on 07-06-2024 Monocytes/100 WBC (Bld) 6.9 % Normal . [facility] Comment on above: Performed By: #### C BC, CMP, LIPASE ####[facility] [id number] Automated neutrophil %Ordere d By: Jono Ferrari on 07-06-2024 Neutrophils/100 WBC (Bld) 66.1 % Normal . [facility] Comment on above: Performed By: #### C BC, CMP, LIPASE ####[facility] Bilirubin.total [Mass/volume ] in Serum or PlasmaOrdered By: Jono Ferrari on 07-06-2024 Bilirubin [Mass/Vol] 0.3 mg/dL Normal 0.3-1.0 [facility] Comment on above: Performed By: #### C BC, CMP, LDLD, FE and TIBC, LIPID, URMA #### [facility] [address] abdomen pelvis w conon CT abdomen pelvis w con [facility] [place] [address] [place] [address] CT Scan Report Signed Patient: Rachel Mcgarry MR#: [id number] 1 : 1980 Acct:[id number] Age/Sex: 44 / F ADM Date: 07/06/24 Loc: ER Room: Type: PRE ER Attending Dr: Copies to: Jono Ferrari PA-C TEMP, PROVIDER Ordering Provider: Jono Ferrari PA-C Date of Service: 07/06/24 CT/CT abdomen pelvis w con: Possible infection CT Abdomen and Pelvis withcontrast TECHNIQUE: Axial imaging with 2-D reconstruction.90 cc of Isovue-300. The CT exam was performed using one or more the following dose reduction techniques: Automated exposure control, adjustment of the MA and/or Kv according to patient size, or use of the iterative reconstruction technique. COMPARISON: 10/08/23 History: Concern for infection. LIMITATIONS: None LOWER THORAX Unremarkable LIVER: Unremarkable GALLBLADDER: Cholecystectomy clips identified. BILE DUCTS: No dilatation SPLEEN: Calcified granulomas redemonstrated. PANCREAS: Unremarkable ADRENAL GLANDS: Unremarkable KIDNEYS:Unremarkable AORTA: No abdominal aortic aneurysm identified. Mild atherosclerosis RETROPERITONEUM: No significant retroperitoneal abnormalities identified. MESENTERY:Unremarkable SMALL BOWEL: The small bowel loops are nondistended. APPENDIX: Appendectomy changes identified. COLON: Unremarkable URINARY BLADDER: Urinary bladder is unremarkable. REPRODUCTIVE SYSTEM: The uterus is absent. PNEUMOPERITONEUM: None PERITONEAL FLUID:None BONY STRUCTURES: Unremarkable ABDOMINAL WALL: Unremarkable CT/CT abdomen pelvis w con IMPRESSION: No acute findings. Impression dictated by: Praveen Welch M.D.07/06/2024 7:13 PM Dictation Location: [place] [address] Transcribed By: [facility] 07/06/241912 Dictated By: Praveen Welch DO 07/06/241910 Signed By: 07/06/241912 Normal [facility] Calcium [Mass/volume] in Ser um or PlasmaOrdered By: Jono Ferrari on 07-06-2024 Calcium [Mass/Vol] 9.2 mg/dL Normal 8.6-10.3 [facility] Comment on above: Performed By: #### C BC, CMP, LDLD, FE and TIBC, LIPID, URMA #### [facility] [address] Carbon dioxide, total [Moles /volume] in Serum or PlasmaOrdered By: Jono Ferrari on 07-06-2024 CO2 [Moles/Vol] 25.2 mmol/L Normal 21.0-31.0 [facility] Comment on above: Performed By: #### C BC, CMP, LDLD, FE and TIBC, LIPID, URMA #### [facility] [address] [place] [address] [place] Chloride [Moles/volume] in S alissa or PlasmaOrdered By: Jono Ferrari on 07-06-2024 Chloride [Moles/Vol] 97 mmol/L Low 98-107 [facility] Comment on above: Performed By: #### C BC, CMP, LDLD, FE and TIBC, LIPID, URMA #### [facility] [address] [place] [id number] [place] Complete Blood Count Auto Di ffon 07-06-2024 Mean Corpuscular HGB Conc 34.5 g/dL Normal 32.0-35.0 [facility] Comment on above: Performed By: #### C BC, CMP, LIPASE ####[address] Monocytes/100 WBC (Bld) 18.69 % Normal 0.00-20.00 [facility] Comment on above: Performed By: #### C BC, CMP, LIPASE ####[address] NRBC% 0.0 /100{WBC} Normal 0-0.5 [facility] Comment on above: Performed By: #### C BC, CMP, LIPASE ####[address] Comprehensive Metabolic Pane mark 07-06-2024 Albumin [Mass/Vol] 4.2 g/dL Normal 3.5-5.7 [facility] Comment on above: Performed By: #### C BC, CMP, LDLD, FE and TIBC, LIPID, URMA #### [address] Creatinine Clr Calc Pharmacy 108.35 Normal [facility] Comment on above: Result Comment: PERF ORMED BY: [place] [address] PATHOLOGIST [employer] RIDGE HUERTA M.D. Performed By: #### C BC, CMP, LDLD, FE and TIBC, LIPID, URMA #### [address] GFR/1.73 sq M.predicted MDRD (S/P/Bld) [Vol rate/Area] mL/min/{1.73_m2} Normal [facility] Comment on above: Performed By: #### C BC, CMP, LDLD, FE and TIBC, LIPID, URMA #### [address] Creatinine [Mass/volume] in Serum or PlasmaOrdered By: Jono Ferrari on 07-06-2024 Creatinine [Mass/Vol] 0.59 mg/dL Low 0.60-1.20 [facility] Comment on above: Performed By: #### C BC, CMP, LDLD, FE and TIBC, LIPID, URMA #### [facility] [address] ECG 12 lead ECGon 07-06-2024 ECG 12 lead ECG [facility] [place] [address] [place] [address] Electrocardiograph Report Signed Patient: Rachel Mcgarry MR#: [id number] 1 : 1980 Acct:[id number] Age/Sex: 44 / F ADM Date: 07/06/24 Loc: ER Room: Type: PRE ER Attending Dr: Ordering Provider: Jono Ferrari PA-C Date of Service: 07/06/2412/25/1601 ECG/ECG 12 lead ECG: Recheck/Abnormal Lab/Rx Copies to: Test Reason : Blood Pressure : 112/77 mmHG Vent. Rate : 103 BPM Atrial Rate : 103 BPM P-R Int : 154 ms QRS Dur : 72 ms QT Int : 328 ms P-R-T Axes : 73 35 34 degrees QTcB Int : 429 ms Sinus tachycardia with occasional premature ventricular complexes Otherwise normal ECG When compared with ECG of 30-Jun-2023 11:37, premature ventricular complexes are now present Confirmed by EDNA MUNOZ MD ([id number]) on 07/06/2024 7:36:31 PM Referred By: Electronically Signed By: EDNA MUNOZ MD Transcribed By: MUS Signed By Edna Munoz MD 07/06/241935 Normal [facility] Erythrocyte distribution wid th [Ratio] by Automated countOrdered By: Jono Ferrari on 07-06-2024 Erythrocyte distribution width (RBC) [Ratio] 13.2 % Normal 11.9-15.3 [facility] Comment on above: Performed By: #### C BC, CMP, LIPASE ####[facility] Qqv0030 [address] Erythrocytes [#/volume] in B lood by Automated countOrdered By: Jono Ferrari on 07-06-2024 RBC (Bld) [#/Vol] 4.93 10*6/uL Normal 3.60-5.00 [facility] Comment on above: Performed By: #### C BC, CMP, LIPASE ####[facility] Glucose [Mass/volume] in Ser um or PlasmaOrdered By: Jono Ferrari on 07-06-2024 Glucose [Mass/Vol] 142 mg/dL High 70-100 [facility] Comment on above: ADA recommended refe rence rangeRandom Glucose Reference Range is dependent on time and content of last meal. Glucose of more than 200 mg/dL in a nonstressed, ambulatory subject supports the diagnosis of Diabetes Mellitus. Result Comment: [place] om Glucose Reference Range is dependent on time and content of last meal. Glucose of more than 200 mg/dL in a nonstressed, ambulatory subject supports the diagnosis of Diabetes Mellitus. ADA recommended reference range Performed By: #### C BC, CMP, LDLD, FE and TIBC, LIPID, URMA #### [facility] [address] Hematocrit [Volume Fraction] of Blood by Automated countOrdered By: Jono Ferrari on 07-06-2024 Hematocrit (Bld) [Volume fraction] 43.5 % Normal 34.0-46.4 [facility] Comment on above: Performed By: #### C BC, CMP, LIPASE ####[facility] Hemoglobin [Mass/volume] in BloodOrdered By: Jono Ferrari on 07-06-2024 Hemoglobin (Bld) [Mass/Vol] 15.0 g/dL Normal 11.8-15.4 [facility] Comment on above: Performed By: #### C BC, CMP, LIPASE ####[place] [address] [address] Leukocytes [#/volume] correc cherie for nucleated erythrocytes in Blood by Automated counOrdered By: Jono Ferrari on 07-06-2024 WBC corrected for nucl RBC Auto (Bld) [#/Vol] 22.9 10*3/uL High 3.8-11.6 [facility] Leukocytes [#/volume] in Blo od by Automated countOrdered By: Jono Ferrari on 07-06-2024 WBC (Bld) [#/Vol] 22.9 10*3/uL High 3.8-11.6 [facility] Comment on above: Performed By: #### C BC, CMP, LIPASE ####[facility] Lipase [Enzymatic activity/v olume] in Serum or PlasmaOrdered By: Jono Ferrari on 07-06-2024 Lipase [Catalytic activity/Vol] 48.0 U/L Normal 11.0-82.0 [facility] Comment on above: Result Comment: PERF ORMED BY: [facility] [address] [facility] [place] [address] PATHOLOGIST [employer]GE HUERTA M.D. Performed By: #### C BC, CMP, LDLD, FE and TIBC, LIPID, URMA #### [facility] [address] Lymphocytes [#/volume] in Bl ood by Automated countOrdered By: Jono Ferrari on 07-06-2024 Lymphocytes (Bld) [#/Vol] 5.8 10*3/uL High 1.00-4.8 [facility] Comment on above: Performed By: #### C BC, CMP, LIPASE ####[place] [address] [address] Lymphocytes/100 leukocytes i n Blood by Automated countOrdered By: Jono Ferrari on 07-06-2024 Lymphocytes/100 WBC (Bld) 25.3 % Normal . [facility] Comment on above: Performed By: #### C BC, CMP, LIPASE ####[place] [address] [place] [id number] [place] MCH [Entitic mass] by Automa cherie countOrdered By: Jono Ferrari on 07-06-2024 MCH (RBC) [Entitic mass] 30.5 pg Normal 24.7-34.3 [facility] Comment on above: Performed By: #### C BC, CMP, LIPASE ####[place] [id number] [facility] MCHC Auto (RBC) [Mass/Vol]Or dered By: Jono Ferrari on 07-06-2024 MCHC (RBC) [Mass/Vol] 34.5 g/dL 32.0-35.0 [facility] MCV [Entitic volume] by Auto mated countOrdered By: Jono Ferrari on 07-06-2024 MCV (RBC) [Entitic vol] 88.3 fL Normal 80-100 [facility] Comment on above: Performed By: #### C BC, CMP, LIPASE ####[facility] Wyt[address] Monocyte distribution width [Entitic volume] in Blood by AutomatedOrdered By: Jono Ferrari on 07-06-2024 Monocyte distribution width Auto (Bld) [Entitic vol] 18.69 % 0.00-20.00 [facility] Neutrophils [#/volume] in Bl ood by Automated countOrdered By: Jono Ferrari on 07-06-2024 Neutrophils (Bld) [#/Vol] 15.1 10*3/uL High 1.8-7.7 [facility] Comment on above: Performed By: #### C BC, CMP, LIPASE ####[address] No Panel InformationOrdered By: Jono Ferrari on 07-06-2024 Estimated GFR (CKD-EPI) > 60.0 mL/Min [facility] Creatinine Clearance (Chem 108.35 [facility] Nucleated erythrocytes [Pres ence] in Blood by Automated countOrdered By: Jono Ferrari on 07-06-2024 Nucleated RBC Auto Ql (Bld) 0.0 /100{WBC} 0-0.5 [facility] Platelet mean volume [Entiti c volume] in Blood by Automated countOrdered By: Jono Ferrari on 07-06-2024 Platelet mean volume (Bld) [Entitic vol] 7.2 fL Normal 6.3-10.7 [facility] Comment on above: Performed By: #### C BC, CMP, LIPASE ####[place] [address] [address] Platelets [#/volume] in Bloo d by Automated countOrdered By: Jono Ferrari on 07-06-2024 Platelets (Bld) [#/Vol] 387 10*3/uL Normal 150-450 [facility] Comment on above: Performed By: #### C BC, CMP, LIPASE ####[facility] Ckm[address] Potassium [Moles/volume] in Serum or PlasmaOrdered By: Jono Ferrari on 07-06-2024 Potassium [Moles/Vol] 3.9 mmol/L Normal 3.5-5.1 [facility] Comment on above: Performed By: #### C BC, CMP, LDLD, FE and TIBC, LIPID, URMA #### [facility] [address] Protein [Mass/volume] in Ser um or PlasmaOrdered By: Jono Ferrari on 07-06-2024 Protein [Mass/Vol] 7.2 g/dL Normal 6.4-8.9 [facility] Comment on above: Performed By: #### C BC, CMP, LDLD, FE and TIBC, LIPID, URMA #### [facility] [address] Serum globulin measurement b y calculation (mass/volume)Ordered By: Jono Ferrari on 07-06-2024 Globulin (S) [Mass/Vol] 3.0 g/dL Normal [facility] Comment on above: Performed By: #### C BC, CMP, LDLD, FE and TIBC, LIPID, URMA #### [facility] [address] Serum or plasma albumin/glob ulin mass ratioOrdered By: Jono Ferrari on 07-06-2024 Albumin/Globulin [Mass ratio] 1.4 {ratio} Normal [facility] Comment on above: Performed By: #### C BC, CMP, LDLD, FE and TIBC, LIPID, URMA #### [facility] [address] Serum or plasma anion gap de terminationOrdered By: Jono Ferrari on 07-06-2024 Anion gap [Moles/Vol] 13.7 mmol/L Normal 6.0-15.0 [facility] Comment on above: Performed By: #### C BC, CMP, LDLD, FE and TIBC, LIPID, URMA #### [facility] [address] Sodium [Moles/volume] in Ser um or PlasmaOrdered By: Jono Ferrari on 07-06-2024 Sodium [Moles/Vol] 132 mmol/L Low 136-145 [facility] Comment on above: Performed By: #### C BC, CMP, LDLD, FE and TIBC, LIPID, URMA #### [facility] [address] [place] [address] Urea nitrogen [Mass/volume] in Serum or PlasmaOrdered By: Jono Ferrari on 07-06-2024 Urea nitrogen [Mass/Vol] 8 mg/dL Normal 7-25 [facility] Comment on above: Performed By: #### C BC, CMP, LDLD, FE and TIBC, LIPID, URMA #### [facility] [address] [place] [address] XR chest 2V*on 07-06-2024 XR chest 2V* [facility] Main [facility] [address] [place] [address] XRay Report Signed Patient: Rachel Mcgarry MR#: [id number] 1 : 1980 Acct:[id number] Age/Sex: 44 / F ADM Date: 07/06/24 Loc: ER Room: Type: PRE ER Attending Dr: Copies to: Jono Ferrari PA-C Ordering Provider: Jono Ferrari PA-C Date of Service: 07/06/24 XR/XR chest 2V*: Recheck/Abnormal Lab/Rx Plain film chest 2 view HISTORY: Leukocytosis COMPARISON: 10/07/23 FINDINGS: SUPPORT DEVICES: None POSTSURGICAL CHANGES: None HEART: Within normal limits PULMONARY AJAY: Within normal limits MEDIASTINUM: Unremarkable LUNGS AND PLEURA: No acute lung process, pleural effusion or pneumothorax identified. BONY STRUCTURES: Intact ADDITIONAL FINDINGS None XR/XR chest 2V* IMPRESSION: No acute process. Impression dictated by: Praveen Welch M.D.07/06/2024 8:10 PM Dictation Location: [place] [address] Transcribed By: [facility] 07/06/242009 Dictated By: Praveen Welch DO 07/06/242008 Signed By: 07/06/242009 Normal [facility] Alanine aminotransferase [En zymatic activity/volume] in Serum or PlasmaOrdered By: Ajit Pettit on 07-04-2024 ALT [Catalytic activity/Vol] 7 U/L Normal 7-52 [facility] Comment on above: Performed By: #### C BC, CMP, LDLD, FE and TIBC, LIPID, URMA #### [facility] [address] [place] [address] [place] Albumin [Mass/volume] in Ser um or Plasma by Bromocresol green (BCG) dye binding methoOrdered By: Ajit Pettit on 07-04-2024 Albumin BCG dye [Mass/Vol] 3.8 g/dL 3.5-5.7 [facility] Alkaline phosphatase [Enzyma tic activity/volume] in Serum or PlasmaOrdered By: Ajit Pettit on 07-04-2024 ALP [Catalytic activity/Vol] 54 U/L Normal 34-104 [facility] Comment on above: Performed By: #### C BC, CMP, LDLD, FE and TIBC, LIPID, URMA #### [facility] [address] [place] [address] [place] Aspartate aminotransferase [ Enzymatic activity/volume] in Serum or PlasmaOrdered By: Ajit Pettit on 07-04-2024 AST [Catalytic activity/Vol] 8 U/L Low 13-39 [facility] Comment on above: Performed By: #### C BC, CMP, LDLD, FE and TIBC, LIPID, URMA #### [facility] [address] [place] [address] [place] Automated basophil %Ordered By: Ajit Pettit on 07-04-2024 Basophils/100 WBC (Bld) 0.6 % Normal . [facility] Comment on above: Performed By: #### C BC, CMP, LDLD, FE and TIBC, LIPID, URMA #### [address] Automated basophil countOrde red By: Ajit Pettit on 07-04-2024 Basophils (Bld) [#/Vol] 0.1 10*3/uL Normal 0.0-0.2 [facility] Comment on above: Result Comment: PERF ORMED BY: [place] [address] PATHOLOGIST [employer] RIDGE HUERTA M.D. Performed By: #### C BC, CMP, LDLD, FE and TIBC, LIPID, URMA #### [address] Automated blood monocyte cou ntOrdered By: Ajit Pettit on 07-04-2024 Monocytes (Bld) [#/Vol] 1.5 10*3/uL High 0.0-0.8 [facility] Comment on above: Performed By: #### C BC, CMP, LDLD, FE and TIBC, LIPID, URMA #### [address] Automated eosinophil %Ordere d By: Ajit Pettit on 07-04-2024 Eosinophils/100 WBC (Bld) 0.5 % Normal . [facility] Comment on above: Performed By: #### C BC, CMP, LDLD, FE and TIBC, LIPID, URMA #### [address] Automated eosinophil countOr dered By: Ajit Pettit on 07-04-2024 Eosinophils (Bld) [#/Vol] 0.1 10*3/uL Normal 0.0-0.45 [facility] Comment on above: Performed By: #### C BC, CMP, LDLD, FE and TIBC, LIPID, URMA #### [address] Automated monocyte %Ordered By: Ajit Millanc on 07-04-2024 Monocytes/100 WBC (Bld) 7.9 % Normal . [facility] Comment on above: Performed By: #### C BC, CMP, LDLD, FE and TIBC, LIPID, URMA #### [facility] [address] Automated neutrophil %Ordere d By: Ajit Pettit on 07-04-2024 Neutrophils/100 WBC (Bld) 66.4 % Normal . [facility] Comment on above: Performed By: #### C BC, CMP, LDLD, FE and TIBC, LIPID, URMA #### [facility] [address] Bilirubin.total [Mass/volume ] in Serum or PlasmaOrdered By: Ajit Millanc on 07-04-2024 Bilirubin [Mass/Vol] 0.3 mg/dL Normal 0.3-1.0 [facility] Comment on above: Performed By: #### C BC, CMP, LDLD, FE and TIBC, LIPID, URMA #### [facility] [address] Calcium [Mass/volume] in Ser um or PlasmaOrdered By: Ajit Millanc on 07-04-2024 Calcium [Mass/Vol] 8.9 mg/dL Normal 8.6-10.3 [facility] Comment on above: Performed By: #### C BC, CMP, LDLD, FE and TIBC, LIPID, URMA #### [facility] [address] Carbon dioxide, total [Moles /volume] in Serum or PlasmaOrdered By: Ajit Pettit on 07-04-2024 CO2 [Moles/Vol] 29.2 mmol/L Normal 21.0-31.0 [facility] Comment on above: Performed By: #### C BC, CMP, LDLD, FE and TIBC, LIPID, URMA #### [facility] [address] [place] [address] [place] Chloride [Moles/volume] in S alissa or PlasmaOrdered By: Ajit Spasic on 07-04-2024 Chloride [Moles/Vol] 92 mmol/L Low 98-107 [facility] Comment on above: Performed By: #### C BC, CMP, LDLD, FE and TIBC, LIPID, URMA #### [facility] [address] Cholesterol [Mass/volume] in Serum or PlasmaOrdered By: Ajit Pettit on 07-04-2024 Cholesterol [Mass/Vol] 185 mg/dL Normal 140-200 [facility] Comment on above: Chol less than 200 m g/dl low riskChol 201-239 mg/dl borderline riskChol 240 mg/dl and greater high risk Result Comment: Chol less than 200 mg/dl low risk Chol 201-239 mg/dl borderline risk Chol 240 mg/dl and greater high risk Performed By: #### C BC, CMP, LDLD, FE and TIBC, LIPID, URMA #### [facility] [address] Cholesterol in LDL Calc [Mas s/Vol]Ordered By: Ajit Pettit on 07-04-2024 Cholesterol in LDL [Mass/Vol] 58 mg/dL 0-100 [facility] Comment on above: LDL ATP III CLASSIFI CATIONLDL less than 100 mg/dL OptimalLDL 100-129 mg/dL Near or above optimalLDL 130-159 mg/dL Borderline highLDL 160-189 mg/dL HighLDL greater than 189 mg/dL Very high Cholesterol in VLDL Calc [Ma ss/Vol]Ordered By: Ajit Pettit on 07-04-2024 Cholesterol in VLDL [Mass/Vol] 78 mg/dL [facility] Complete Blood Count Auto Di ffon 07-04-2024 Mean Corpuscular HGB Conc 34.2 g/dL Normal 32.0-35.0 [facility] Comment on above: Performed By: #### C BC, CMP, LDLD, FE and TIBC, LIPID, URMA #### [facility] [address] NRBC% 0.1 /100{WBC} Normal 0-0.5 [facility] Comment on above: Performed By: #### C BC, CMP, LDLD, FE and TIBC, LIPID, URMA #### [facility] [address] Comprehensive Metabolic Pane mark 07-04-2024 Albumin [Mass/Vol] 3.8 g/dL Normal 3.5-5.7 [facility] Comment on above: Performed By: #### C BC, CMP, LDLD, FE and TIBC, LIPID, URMA #### [facility] [address] GFR/1.73 sq M.predicted MDRD (S/P/Bld) [Vol rate/Area] mL/min/{1.73_m2} Normal [facility] Comment on above: Performed By: #### C BC, CMP, LDLD, FE and TIBC, LIPID, URMA #### [facility] [address] Creatinine [Mass/volume] in Serum or PlasmaOrdered By: Ajit Pettit on 07-04-2024 Creatinine [Mass/Vol] 0.61 mg/dL Normal 0.60-1.20 [facility] Comment on above: Performed By: #### C BC, CMP, LDLD, FE and TIBC, LIPID, URMA #### [address] Erythrocyte distribution wid th [Ratio] by Automated countOrdered By: Ajit Pettit on 07-04-2024 Erythrocyte distribution width (RBC) [Ratio] 13.0 % Normal 11.9-15.3 [facility] Comment on above: Performed By: #### C BC, CMP, LDLD, FE and TIBC, LIPID, URMA #### [facility] [address] Erythrocytes [#/volume] in B lood by Automated countOrdered By: Ajit Pettit on 07-04-2024 RBC (Bld) [#/Vol] 4.55 10*6/uL Normal 3.60-5.00 [facility] Comment on above: Performed By: #### C BC, CMP, LDLD, FE and TIBC, LIPID, URMA #### [place] [address] [place] Glucose [Mass/volume] in Ser um or PlasmaOrdered By: Ajit Pettit on 07-04-2024 Glucose [Mass/Vol] 164 mg/dL High 70-100 [facility] Comment on above: ADA recommended refe rence rangeRandom Glucose Reference Range is dependent on time and content of last meal. Glucose of more than 200 mg/dL in a nonstressed, ambulatory subject supports the diagnosis of Diabetes Mellitus. Result Comment: [place] om Glucose Reference Range is dependent on time and content of last meal. Glucose of more than 200 mg/dL in a nonstressed, ambulatory subject supports the diagnosis of Diabetes Mellitus. ADA recommended reference range Performed By: #### C BC, CMP, LDLD, FE and TIBC, LIPID, URMA #### [facility] [address] Hematocrit [Volume Fraction] of Blood by Automated countOrdered By: Ajit Pettit on 07-04-2024 Hematocrit (Bld) [Volume fraction] 40.0 % Normal 34.0-46.4 [facility] Comment on above: Performed By: #### C BC, CMP, LDLD, FE and TIBC, LIPID, URMA #### [facility] [address] Hemoglobin [Mass/volume] in BloodOrdered By: Ajit Pettit on 07-04-2024 Hemoglobin (Bld) [Mass/Vol] 13.7 g/dL Normal 11.8-15.4 [facility] Comment on above: Performed By: #### C BC, CMP, LDLD, FE and TIBC, LIPID, URMA #### [facility] [address] Leukocytes [#/volume] correc cherie for nucleated erythrocytes in Blood by Automated counOrdered By: Ajit Pettit on 07-04-2024 WBC corrected for nucl RBC Auto (Bld) [#/Vol] 19.3 10*3/uL High 3.8-11.6 [facility] Leukocytes [#/volume] in Blo od by Automated countOrdered By: Ajit Pettit on 07-04-2024 WBC (Bld) [#/Vol] 19.3 10*3/uL High 3.8-11.6 [facility] Comment on above: Performed By: #### C BC, CMP, LDLD, FE and TIBC, LIPID, URMA #### [facility] [address] Lipid Panelon 07-04-2024 LDL Cholesterol,Calculated 58 mg/dL Normal 0-100 [facility] Comment on above: Result Comment: LDL ATP III CLASSIFICATION LDL less than 100 mg/dL Optimal LDL 100-129 mg/dL Near or above optimal LDL 130-159 mg/dL Borderline high LDL 160-189 mg/dL High LDL greater than 189 mg/dL Very high Performed By: #### C BC, CMP, LDLD, FE and TIBC, LIPID, URMA #### [address] Triglyceride w/Reflex 393 mg/dL High 0-149 [facility] Comment on above: Result Comment: TRIG ATP III CLASSIFICATION TRIG less than 150 mg/dL Normal TRIG 150-199 mg/dL Borderline high TRIG 200-500 mg/dL High TRIG greater than 500 mg/dL Very high Standard traceable to the Center for Disease Conrtrol and Prevention (CDC) test method. Performed By: #### C BC, CMP, LDLD, FE and TIBC, LIPID, URMA #### [address] VLDL CHOLESTEROL 78 mg/dL Normal [facility] Comment on above: Performed By: #### C BC, CMP, LDLD, FE and TIBC, LIPID, URMA #### [address] Lymphocytes [#/volume] in Bl ood by Automated countOrdered By: Ajit Pettit on 07-04-2024 Lymphocytes (Bld) [#/Vol] 4.7 10*3/uL Normal 1.00-4.8 [facility] Comment on above: Performed By: #### C BC, CMP, LDLD, FE and TIBC, LIPID, URMA #### [place] [address] [place] Lymphocytes/100 leukocytes i n Blood by Automated countOrdered By: Ajit Pettit on 07-04-2024 Lymphocytes/100 WBC (Bld) 24.6 % Normal . [facility] Comment on above: Performed By: #### C BC, CMP, LDLD, FE and TIBC, LIPID, URMA #### [facility] [address] [place] [address] MCH [Entitic mass] by Automa cherie countOrdered By: Ajit Pettit on 07-04-2024 MCH (RBC) [Entitic mass] 30.0 pg Normal 24.7-34.3 [facility] Comment on above: Performed By: #### C BC, CMP, LDLD, FE and TIBC, LIPID, URMA #### [facility] [address] [place] [address] MCHC Auto (RBC) [Mass/Vol]Or dered By: Ajit Pettit on 07-04-2024 MCHC (RBC) [Mass/Vol] 34.2 g/dL 32.0-35.0 [facility] MCV [Entitic volume] by Auto mated countOrdered By: Ajit Pettit on 07-04-2024 MCV (RBC) [Entitic vol] 87.9 fL Normal 80-100 [facility] Comment on above: Performed By: #### C BC, CMP, LDLD, FE and TIBC, LIPID, URMA #### [address] Neutrophils [#/volume] in Bl ood by Automated countOrdered By: Ajit Pettit on 07-04-2024 Neutrophils (Bld) [#/Vol] 12.8 10*3/uL High 1.8-7.7 [facility] Comment on above: Performed By: #### C BC, CMP, LDLD, FE and TIBC, LIPID, URMA #### [facility] [address] [place] [address] No Panel InformationOrdered By: Ajit Pettit on 07-04-2024 Estimated GFR (CKD-EPI) > 60.0 mL/Min [facility] Creatinine Clearance (Chem N/A [facility] Nucleated erythrocytes [Pres ence] in Blood by Automated countOrdered By: Ajit Pettit on 07-04-2024 Nucleated RBC Auto Ql (Bld) 0.1 /100{WBC} 0-0.5 [facility] Platelet mean volume [Entiti c volume] in Blood by Automated countOrdered By: Ajit Pettit on 07-04-2024 Platelet mean volume (Bld) [Entitic vol] 7.0 fL Normal 6.3-10.7 [facility] Comment on above: Performed By: #### C BC, CMP, LDLD, FE and TIBC, LIPID, URMA #### [facility] [address] [place] [address] [place] Platelets [#/volume] in Bloo d by Automated countOrdered By: Ajit Pettit on 07-04-2024 Platelets (Bld) [#/Vol] 350 10*3/uL Normal 150-450 [facility] Comment on above: Performed By: #### C BC, CMP, LDLD, FE and TIBC, LIPID, URMA #### [facility] [address] [place] [address] [place] Potassium [Moles/volume] in Serum or PlasmaOrdered By: Ajit Pettit on 07-04-2024 Potassium [Moles/Vol] 4.6 mmol/L Normal 3.5-5.1 [facility] Comment on above: Performed By: #### C BC, CMP, LDLD, FE and TIBC, LIPID, URMA #### [facility] [address] [place] [address] [place] Protein [Mass/volume] in Ser um or PlasmaOrdered By: Ajit Pettit on 07-04-2024 Protein [Mass/Vol] 5.9 g/dL Low 6.4-8.9 [facility] Comment on above: Performed By: #### C BC, CMP, LDLD, FE and TIBC, LIPID, URMA #### [facility] [address] [place] [address] [place] Serum globulin measurement b y calculation (mass/volume)Ordered By: Ajit Pettit on 07-04-2024 Globulin (S) [Mass/Vol] 2.1 g/dL Normal [facility] Comment on above: Performed By: #### C BC, CMP, LDLD, FE and TIBC, LIPID, URMA #### [facility] [address] Serum or plasma albumin/glob ulin mass ratioOrdered By: Ajit Pettit on 07-04-2024 Albumin/Globulin [Mass ratio] 1.8 {ratio} Normal [facility] Comment on above: Performed By: #### C BC, CMP, LDLD, FE and TIBC, LIPID, URMA #### [facility] [address] Serum or plasma anion gap de terminationOrdered By: Ajit Pettit on 07-04-2024 Anion gap [Moles/Vol] 13.4 mmol/L Normal 6.0-15.0 [facility] Comment on above: Performed By: #### C BC, CMP, LDLD, FE and TIBC, LIPID, URMA #### [facility] [address] Serum or plasma high density lipoprotein (HDL) cholesterol measurementOrdered By: Ajit Pettit on 07-04-2024 Cholesterol in HDL [Mass/Vol] 48 mg/dL Normal 23-92 [facility] Comment on above: HDL CHOL ATP-III CLA SSIFICATION Cardiovascular RiskHDL > or equal to 60 mg/dL LOWHDL < 40 mg/dL HIGH Result Comment: HDL CHOL ATP-III CLASSIFICATION Cardiovascular Risk HDL > or equal to 60 mg/dL LOW HDL < 40 mg/dL HIGH Performed By: #### C BC, CMP, LDLD, FE and TIBC, LIPID, URMA #### [facility] [address] Serum or plasma total choles terol/high density lipoprotein (HDL) cholesterol mass ratOrdered By: Ajit Pettit on 07-04-2024 Cholesterol.total/Suellen sterol in HDL [Mass ratio] 3.9 {ratio} Normal <5.0 [facility] Comment on above: Result Comment: PERF ORMED BY: [facility] [address] [place] [address] PATHOLOGIST [employer] RIDGE HUERTA M.D. Performed By: #### C BC, CMP, LDLD, FE and TIBC, LIPID, URMA #### [facility] [address] Sodium [Moles/volume] in Ser um or PlasmaOrdered By: Ajit Pettit on 07-04-2024 Sodium [Moles/Vol] 130 mmol/L Low 136-145 [facility] Comment on above: Performed By: #### C BC, CMP, LDLD, FE and TIBC, LIPID, URMA #### [facility] [address] Triglyceride [Mass/volume] i n Serum or PlasmaOrdered By: Ajit Pettit on 07-04-2024 Triglyceride [Mass/Vol] 393 mg/dL High 0-149 [facility] Comment on above: TRIG ATP III CLASSIF ICATIONTRIG less than 150 mg/dL NormalTRIG 150-199 mg/dL Borderline highTRIG 200-500 mg/dL High TRIG greater than 500 mg/dL Very highStandard traceable to the Center for Disease Conrtrol and Prevention (CDC) test method. Urea nitrogen [Mass/volume] in Serum or PlasmaOrdered By: Ajit Pettit on 07-04-2024 Urea nitrogen [Mass/Vol] 6 mg/dL Low 7-25 [facility] Comment on above: Performed By: #### C BC, CMP, LDLD, FE and TIBC, LIPID, URMA #### [address] MR lumbar spine wo conon MR lumbar spine wo con [facility] [address] [place] [address] MRI Report Signed Patient: Rachel Mcgarry MR#: [id number] 1 : 1980 Acct:[id number] Age/Sex: 44 / F ADM Date: 06/08/24 Loc: [facility] Room: Type: [facility] Attending Dr: Ajit DEJESUS Copies to: OLEG [...] with epidural lipomatosis. Impression dictated by: Dar Messina M.D.06/08/2024 4:52 PM Dictation Location: [place] [address] Transcribed By: [facility] 06/08/24 1652 Dictated By: Dar Messina II, MD 06/08/24 1643 Signed By: 06/08/24 1652 Normal [facility] A1C with Estimated Average G lethan 05-16-2024 Glucose [Mass/Vol] 137 mg/dL Normal [facility] Comment on above: Order Comment: Reaso n for Exam Type 2 diabetes mellitus without complication, without long- Result Comment: PERF ORMED BY: [place] [address] PATHOLOGIST [employer] R[employer]GE HUERTA M.D. Performed By: #### C BC, CMP, LDLD, FE and TIBC, LIPID, URMA #### [facility] [address] Alanine aminotransferase [En zymatic activity/volume] in Serum or PlasmaOrdered By: Ajit Pettit on 05-16-2024 ALT [Catalytic activity/Vol] 11 U/L Normal 7-52 [facility] Comment on above: Order Comment: Reaso n for Exam Type 2 diabetes mellitus without complication, without long- Performed By: #### C BC, CMP, LDLD, FE and TIBC, LIPID, URMA #### [facility] [address] [place] [address] [place] Albumin [Mass/volume] in Ser um or Plasma by Bromocresol green (BCG) dye binding methoOrdered By: Ajit Pettit on 05-16-2024 Albumin BCG dye [Mass/Vol] 4.2 g/dL 3.5-5.7 [facility] Alkaline phosphatase [Enzyma tic activity/volume] in Serum or PlasmaOrdered By: Ajit Pettit on 05-16-2024 ALP [Catalytic activity/Vol] 62 U/L Normal 34-104 [facility] Comment on above: Order Comment: Reaso n for Exam Type 2 diabetes mellitus without complication, without long- Performed By: #### C BC, CMP, LDLD, FE and TIBC, LIPID, URMA #### [facility] [address] Aspartate aminotransferase [ Enzymatic activity/volume] in Serum or PlasmaOrdered By: Ajit Pettit on 05-16-2024 AST [Catalytic activity/Vol] 11 U/L Low 13-39 [facility] Comment on above: Order Comment: Reaso n for Exam Type 2 diabetes mellitus without complication, without long- Performed By: #### C BC, CMP, LDLD, FE and TIBC, LIPID, URMA #### [facility] [address] Automated basophil %Ordered By: Ajit Pettit on 05-16-2024 Basophils/100 WBC (Bld) 0.6 % Normal . [facility] Comment on above: Order Comment: Reaso n for Exam Type 2 diabetes mellitus without complication, without long- Performed By: #### C BC, CMP, LDLD, FE and TIBC, LIPID, URMA #### [facility] [address] Automated basophil countOrde red By: Ajit Pettit on 05-16-2024 Basophils (Bld) [#/Vol] 0.1 10*3/uL Normal 0.0-0.2 [facility] Comment on above: Order Comment: Reaso n for Exam Type 2 diabetes mellitus without complication, without long- Result Comment: PERF ORMED BY: [place] [address] PATHOLOGIST [employer] RIDGE HUERTA M.D. Performed By: #### C BC, CMP, LDLD, FE and TIBC, LIPID, URMA #### [facility] [address] Automated blood monocyte cou ntOrdered By: Ajit Pettit on 05-16-2024 Monocytes (Bld) [#/Vol] 0.7 10*3/uL Normal 0.0-0.8 [facility] Comment on above: Order Comment: Reaso n for Exam Type 2 diabetes mellitus without complication, without long- Performed By: #### C BC, CMP, LDLD, FE and TIBC, LIPID, URMA #### [facility] [address] Automated eosinophil %Ordere d By: Ajit Pettit on 05-16-2024 Eosinophils/100 WBC (Bld) 0.4 % Normal . [facility] Comment on above: Order Comment: Reaso n for Exam Type 2 diabetes mellitus without complication, without long- Performed By: #### C BC, CMP, LDLD, FE and TIBC, LIPID, URMA #### [facility] [address] Automated eosinophil countOr dered By: Ajit Pettit on 05-16-2024 Eosinophils (Bld) [#/Vol] 0.1 10*3/uL Normal 0.0-0.45 [facility] Comment on above: Order Comment: Reaso n for Exam Type 2 diabetes mellitus without complication, without long- Performed By: #### C BC, CMP, LDLD, FE and TIBC, LIPID, URMA #### [facility] [address] Automated monocyte %Ordered By: Ajit Pettit on 05-16-2024 Monocytes/100 WBC (Bld) 4.4 % Normal . [facility] Comment on above: Order Comment: Reaso n for Exam Type 2 diabetes mellitus without complication, without long- Performed By: #### C BC, CMP, LDLD, FE and TIBC, LIPID, URMA #### [facility] [address] Automated neutrophil %Ordere d By: Ajit Pettit on 05-16-2024 Neutrophils/100 WBC (Bld) 61.6 % Normal . [facility] Comment on above: Order Comment: Reaso n for Exam Type 2 diabetes mellitus without complication, without long- Performed By: #### C BC, CMP, LDLD, FE and TIBC, LIPID, URMA #### [facility] [address] Bilirubin.total [Mass/volume ] in Serum or PlasmaOrdered By: Ajit Pettit on 05-16-2024 Bilirubin [Mass/Vol] 0.3 mg/dL Normal 0.3-1.0 [facility] Comment on above: Order Comment: Reaso n for Exam Type 2 diabetes mellitus without complication, without long- Performed By: #### C BC, CMP, LDLD, FE and TIBC, LIPID, URMA #### [facility] [address] [place] [id number] [place] Calcium [Mass/volume] in Ser um or PlasmaOrdered By: Ajit Pettit on 05-16-2024 Calcium [Mass/Vol] 9.0 mg/dL Normal 8.6-10.3 [facility] Comment on above: Order Comment: Reaso n for Exam Type 2 diabetes mellitus without complication, without long- Performed By: #### C BC, CMP, LDLD, FE and TIBC, LIPID, URMA #### [facility] [address] [place] [id number] [place] Carbon dioxide, total [Moles /volume] in Serum or PlasmaOrdered By: Ajit Pettit on 05-16-2024 CO2 [Moles/Vol] 26.0 mmol/L Normal 21.0-31.0 [facility] Comment on above: Order Comment: Reaso n for Exam Type 2 diabetes mellitus without complication, without long- Performed By: #### C BC, CMP, LDLD, FE and TIBC, LIPID, URMA #### [facility] [address] [place] [id number] [place] Chloride [Moles/volume] in S alissa or PlasmaOrdered By: Ajit Pettit on 05-16-2024 Chloride [Moles/Vol] 96 mmol/L Low 98-107 [facility] Comment on above: Order Comment: Reaso n for Exam Type 2 diabetes mellitus without complication, without long- Performed By: #### C BC, CMP, LDLD, FE and TIBC, LIPID, URMA #### [facility] [address] [place] [id number] [place] Cholesterol [Mass/volume] in Serum or PlasmaOrdered By: Ajit Pettit on 05-16-2024 Cholesterol [Mass/Vol] 237 mg/dL High 140-200 [facility] Comment [...] LDLD, FE and TIBC, LIPID, URMA #### [facility] [address] [place] [address] [facility] Cholesterol in LDL Calc [Mas s/Vol]Ordered By: Ajit Pettit on 05-16-2024 Cholesterol in LDL [Mass/Vol] 130 mg/dL High 0-100 [facility] Comment on above: LDL ATP III CLASSIFI CATIONLDL less than 100 mg/dL OptimalLDL 100-129 mg/dL Near or above optimalLDL 130-159 mg/dL Borderline highLDL 160-189 mg/dL HighLDL greater than 189 mg/dL Very high Cholesterol in VLDL Calc [Ma ss/Vol]Ordered By: Ajit Pettit on 05-16-2024 Cholesterol in VLDL [Mass/Vol] 64 mg/dL [facility] Complete Blood Count Auto Di ffon 05-16-2024 Mean Corpuscular HGB Conc 34.3 g/dL Normal 32.0-35.0 [facility] Comment on above: Order Comment: Reaso n for Exam Type 2 diabetes mellitus without complication, without long- Performed By: #### C BC, CMP, LDLD, FE and TIBC, LIPID, URMA #### [facility] [address] [place] [address] [facility] NRBC% 0.1 /100{WBC} Normal 0-0.5 [facility] Comment on above: Order Comment: Reaso n for Exam Type 2 diabetes mellitus without complication, without long- Performed By: #### C BC, CMP, LDLD, FE and TIBC, LIPID, URMA #### [facility] [address] [place] [address] [facility] Comprehensive Metabolic Pane mark 05-16-2024 Albumin [Mass/Vol] 4.2 g/dL Normal 3.5-5.7 [facility] Comment on above: Order Comment: Reaso n for Exam Type 2 diabetes mellitus without complication, without long- Performed By: #### C BC, CMP, LDLD, FE and TIBC, LIPID, URMA #### [facility] [address] GFR/1.73 sq M.predicted MDRD (S/P/Bld) [Vol rate/Area] mL/min/{1.73_m2} Normal [facility] Comment on above: Order Comment: Reaso n for Exam Type 2 diabetes mellitus without complication, without long- Performed By: #### C BC, CMP, LDLD, FE and TIBC, LIPID, URMA #### [facility] [address] Creatinine [Mass/volume] in Serum or PlasmaOrdered By: Ajit Pettit on 05-16-2024 Creatinine [Mass/Vol] 0.47 mg/dL Low 0.60-1.20 [facility] Comment on above: Order Comment: Reaso n for Exam Type 2 diabetes mellitus without complication, without long- Performed By: #### C BC, CMP, LDLD, FE and TIBC, LIPID, URMA #### [facility] [address] Erythrocyte distribution wid th [Ratio] by Automated countOrdered By: Ajit Pettit on 05-16-2024 Erythrocyte distribution width (RBC) [Ratio] 13.3 % Normal 11.9-15.3 [facility] Comment on above: Order Comment: Reaso n for Exam Type 2 diabetes mellitus without complication, without long- Performed By: #### C BC, CMP, LDLD, FE and TIBC, LIPID, URMA #### [facility] [address] Erythrocytes [#/volume] in B lood by Automated countOrdered By: Ajit Pettit on 05-16-2024 RBC (Bld) [#/Vol] 4.64 10*6/uL Normal 3.60-5.00 [facility] Comment on above: Order Comment: Reaso n for Exam Type 2 diabetes mellitus without complication, without long- Performed By: #### C BC, CMP, LDLD, FE and TIBC, LIPID, URMA #### [facility] [address] [place] [address] [place] Glucose [Mass/volume] in Ser um or PlasmaOrdered By: Ajit Pettit on 05-16-2024 Glucose [Mass/Vol] 74 mg/dL Normal 70-100 [facility] Comment on above: ADA recommended refe rence rangeRandom Glucose Reference Range is dependent on time and content of last meal. Glucose of more than 200 mg/dL in a nonstressed, ambulatory subject supports the diagnosis of Diabetes Mellitus. Order Comment: Reaso n for Exam Type 2 diabetes mellitus without complication, without long- Result Comment: [place] om Glucose Reference Range is dependent on time and content of last meal. Glucose of more than 200 mg/dL in a nonstressed, ambulatory subject supports the diagnosis of Diabetes Mellitus. ADA recommended reference range Performed By: #### C BC, CMP, LDLD, FE and TIBC, LIPID, URMA #### [facility] [address] [place] [address] [place] Glucose mean value [Mass/vol ume] in Blood Estimated from glycated hemoglobinOrdered By: Ajit Pettit on 05-16-2024 Average glucose Estimated from glycated hemoglobin (Bld) [Mass/Vol] 137 mg/dL [facility] Hematocrit [Volume Fraction] of Blood by Automated countOrdered By: Ajit Pettit on 05-16-2024 Hematocrit (Bld) [Volume fraction] 41.1 % Normal 34.0-46.4 [facility] Comment on above: Order Comment: Reaso n for Exam Type 2 diabetes mellitus without complication, without long- Performed By: #### C BC, CMP, LDLD, FE and TIBC, LIPID, URMA #### [facility] [address] [place] [address] [place] Hemoglobin A1c percentageOrd ered By: Ajit Pettit on 05-16-2024 HbA1c (Bld) [Mass fraction] 6.4 % High 4.3-5.6 [facility] Comment on above: Increased risk [...] LDLD, FE and TIBC, LIPID, URMA #### [facility] [address] Hemoglobin [Mass/volume] in BloodOrdered By: Ajit Pettit on 05-16-2024 Hemoglobin (Bld) [Mass/Vol] 14.1 g/dL Normal 11.8-15.4 [facility] Comment on above: Order Comment: Reaso n for Exam Type 2 diabetes mellitus without complication, without long- Performed By: #### C BC, CMP, LDLD, FE and TIBC, LIPID, URMA #### [facility] [address] Leukocytes [#/volume] correc cherie for nucleated erythrocytes in Blood by Automated counOrdered By: Ajit Pettit on 05-16-2024 WBC corrected for nucl RBC Auto (Bld) [#/Vol] 15.0 10*3/uL High 3.8-11.6 [facility] Leukocytes [#/volume] in Blo od by Automated countOrdered By: Ajit Pettit on 05-16-2024 WBC (Bld) [#/Vol] 15.0 10*3/uL High 3.8-11.6 [facility] Comment on above: Order Comment: Reaso n for Exam Type 2 diabetes mellitus without complication, without long- Performed By: #### C BC, CMP, LDLD, FE and TIBC, LIPID, URMA #### [facility] [address] Lipid Panelon 05-16-2024 LDL Cholesterol,Calculated 130 mg/dL High 0-100 [facility] Comment on above: Order [...] LDLD, FE and TIBC, LIPID, URMA #### [facility] [address] Triglyceride w/Reflex 321 mg/dL High 0-149 [facility] Comment on above: Order [...] LDLD, FE and TIBC, LIPID, URMA #### [facility] [address] VLDL CHOLESTEROL 64 mg/dL Normal [facility] Comment on above: Order Comment: Reaso n for Exam Type 2 diabetes mellitus without complication, without long- Performed By: #### C BC, CMP, LDLD, FE and TIBC, LIPID, URMA #### [facility] [address] Lymphocytes [#/volume] in Bl ood by Automated countOrdered By: Ajit Pettit on 05-16-2024 Lymphocytes (Bld) [#/Vol] 5.0 10*3/uL High 1.00-4.8 [facility] Comment on above: Order Comment: Reaso n for Exam Type 2 diabetes mellitus without complication, without long- Performed By: #### C BC, CMP, LDLD, FE and TIBC, LIPID, URMA #### [facility] [address] [place] [address] [place] Lymphocytes/100 leukocytes i n Blood by Automated countOrdered By: Ajit Pettit on 05-16-2024 Lymphocytes/100 WBC (Bld) 33.0 % Normal . [facility] Comment on above: Order Comment: Reaso n for Exam Type 2 diabetes mellitus without complication, without long- Performed By: #### C BC, CMP, LDLD, FE and TIBC, LIPID, URMA #### [facility] [address] MCH [Entitic mass] by Automa cherie countOrdered By: Ajit Pettit on 05-16-2024 MCH (RBC) [Entitic mass] 30.3 pg Normal 24.7-34.3 [facility] Comment on above: Order Comment: Reaso n for Exam Type 2 diabetes mellitus without complication, without long- Performed By: #### C BC, CMP, LDLD, FE and TIBC, LIPID, URMA #### [facility] [address] MCHC Auto (RBC) [Mass/Vol]Or dered By: Ajit Pettit on 05-16-2024 MCHC (RBC) [Mass/Vol] 34.3 g/dL 32.0-35.0 [facility] MCV [Entitic volume] by Auto mated countOrdered By: Ajit Pettit on 05-16-2024 MCV (RBC) [Entitic vol] 88.4 fL Normal 80-100 [facility] Comment on above: Order Comment: Reaso n for Exam Type 2 diabetes mellitus without complication, without long- Performed By: #### C BC, CMP, LDLD, FE and TIBC, LIPID, URMA #### [facility] [address] Neutrophils [#/volume] in Bl ood by Automated countOrdered By: Ajit Pettit on 05-16-2024 Neutrophils (Bld) [#/Vol] 9.3 10*3/uL High 1.8-7.7 [facility] Comment on above: Order Comment: Reaso n for Exam Type 2 diabetes mellitus without complication, without long- Performed By: #### C BC, CMP, LDLD, FE and TIBC, LIPID, URMA #### [facility] [address] No Panel InformationOrdered By: Ajit Pettit on 05-16-2024 Estimated GFR (CKD-EPI) > 60.0 mL/Min [facility] Creatinine Clearance (Chem N/A [facility] Nucleated erythrocytes [Pres ence] in Blood by Automated countOrdered By: Ajit Pettit on 05-16-2024 Nucleated RBC Auto Ql (Bld) 0.1 /100{WBC} 0-0.5 [facility] Platelet mean volume [Entiti c volume] in Blood by Automated countOrdered By: Ajit Pettit on 05-16-2024 Platelet mean volume (Bld) [Entitic vol] 7.9 fL Normal 6.3-10.7 [facility] Comment on above: Order Comment: Reaso n for Exam Type 2 diabetes mellitus without complication, without long- Performed By: #### C BC, CMP, LDLD, FE and TIBC, LIPID, URMA #### [facility] [address] [place] [address] [place] Platelets [#/volume] in Bloo d by Automated countOrdered By: Ajit Pettit on 05-16-2024 Platelets (Bld) [#/Vol] 400 10*3/uL Normal 150-450 [facility] Comment on above: Order Comment: Reaso n for Exam Type 2 diabetes mellitus without complication, without long- Performed By: #### C BC, CMP, LDLD, FE and TIBC, LIPID, URMA #### [facility] [address] [place] [id number] [place] Potassium [Moles/volume] in Serum or PlasmaOrdered By: Ajit Pettit on 05-16-2024 Potassium [Moles/Vol] 4.1 mmol/L Normal 3.5-5.1 [facility] Comment on above: Order Comment: Reaso n for Exam Type 2 diabetes mellitus without complication, without long- Performed By: #### C BC, CMP, LDLD, FE and TIBC, LIPID, URMA #### [facility] [address] [place] [id number] [place] Protein [Mass/volume] in Ser um or PlasmaOrdered By: Ajit Pettit on 05-16-2024 Protein [Mass/Vol] 6.7 g/dL Normal 6.4-8.9 [facility] Comment on above: Order Comment: Reaso n for Exam Type 2 diabetes mellitus without complication, without long- Performed By: #### C BC, CMP, LDLD, FE and TIBC, LIPID, URMA #### [facility] [address] Serum globulin measurement b y calculation (mass/volume)Ordered By: Ajit Pettit on 05-16-2024 Globulin (S) [Mass/Vol] 2.5 g/dL Normal [facility] Comment on above: Order Comment: Reaso n for Exam Type 2 diabetes mellitus without complication, without long- Performed By: #### C BC, CMP, LDLD, FE and TIBC, LIPID, URMA #### [facility] [address] Serum or plasma albumin/glob ulin mass ratioOrdered By: Ajit Pettit on 05-16-2024 Albumin/Globulin [Mass ratio] 1.7 {ratio} Normal [facility] Comment on above: Order Comment: Reaso n for Exam Type 2 diabetes mellitus without complication, without long- Performed By: #### C BC, CMP, LDLD, FE and TIBC, LIPID, URMA #### [facility] [address] Serum or plasma anion gap de terminationOrdered By: Ajit Pettit on 05-16-2024 Anion gap [Moles/Vol] 13.1 mmol/L Normal 6.0-15.0 [facility] Comment on above: Order Comment: Reaso n for Exam Type 2 diabetes mellitus without complication, without long- Performed By: #### C BC, CMP, LDLD, FE and TIBC, LIPID, URMA #### [facility] [address] Serum or plasma high density lipoprotein (HDL) cholesterol measurementOrdered By: Ajit Pettit on 05-16-2024 Cholesterol in HDL [Mass/Vol] 43 mg/dL Normal 23-92 [facility] Comment on above: HDL CHOL [...] LDLD, FE and TIBC, LIPID, URMA #### [facility] [address] Serum or plasma total choles terol/high density lipoprotein (HDL) cholesterol mass ratOrdered By: Ajit Pettit on 05-16-2024 Cholesterol.total/Suellen sterol in HDL [Mass ratio] 5.5 {ratio} Normal <5.0 [facility] Comment on above: Order Comment: Reaso n for Exam Type 2 diabetes mellitus without complication, without long- Performed By: #### C BC, CMP, LDLD, FE and TIBC, LIPID, URMA #### [address] Sodium [Moles/volume] in Ser um or PlasmaOrdered By: Ajit Pettit on 05-16-2024 Sodium [Moles/Vol] 131 mmol/L Low 136-145 [facility] Comment on above: Order Comment: Reaso n for Exam Type 2 diabetes mellitus without complication, without long- Performed By: #### C BC, CMP, LDLD, FE and TIBC, LIPID, URMA #### [facility] [address] Thyroid Stim Hormone w/Rflxo n 05-16-2024 Thyroid Stim Hormone w/Rflx 1.69 u[iU]/mL Normal 0.45-5.33 [facility] Comment on above: Order Comment: Reaso n for Exam Type 2 diabetes mellitus without complication, without long- Performed By: #### C BC, CMP, LDLD, FE and TIBC, LIPID, URMA #### [facility] [address] [place] [address] [place] Thyrotropin [Units/volume] i n Serum or PlasmaOrdered By: Ajit Pettit on 05-16-2024 TSH Qn 1.69 m[IU]/L 0.45-5.33 [facility] Triglyceride [Mass/volume] i n Serum or PlasmaOrdered By: Ajit Pettit on 05-16-2024 Triglyceride [Mass/Vol] 321 mg/dL High 0-149 [facility] Comment on above: TRIG ATP III CLASSIF ICATIONTRIG less than 150 mg/dL NormalTRIG 150-199 mg/dL Borderline highTRIG 200-500 mg/dL High TRIG greater than 500 mg/dL Very highStandard traceable to the Center for Disease Conrtrol and Prevention (CDC) test method. Urea nitrogen [Mass/volume] in Serum or PlasmaOrdered By: Ajit Pettit on 05-16-2024 Urea nitrogen [Mass/Vol] 5 mg/dL Low 7-25 [facility] Comment on above: Order Comment: Reaso n for Exam Type 2 diabetes mellitus without complication, without long- Performed By: #### C BC, CMP, LDLD, FE and TIBC, LIPID, URMA #### [facility] [address] [place] [address] [facility] Vitamin D 25 Hydroxy Totalon 05-16-2024 Vitamin D 25 Hydroxy Total 46.2 ng/mL Normal 30-100 [facility] Comment on above: Order [...] practice guideline. JCEM. 2010; 96(7):1911-30. PERFORMED BY: [address] [place] [id number] PATHOLOGIST [employer]GE HUERTA M.D. Performed By: #### C BC, CMP, LDLD, FE and TIBC, LIPID, URMA #### [facility] [address] [place] [id number] [facility] Vitamin D+Metabolites [Mass/ volume] in Serum or PlasmaOrdered By: Ajit Pettit on 05-16-2024 Vitamin D+Metabolites [Mass/Vol] 46.2 ng/mL 30-100 [facility] Comment on above: VITAMIN D STATUS 25( [place])VITAMIN D RANGE (ng/mL) Deficient <20 Insufficient 20 to <30Sufficient 30 to 100Reference: Jovanni MF,Dominique NC, Gillian NINA, et al. Evaluation,treatment, and prevention of vitamin D deficiency; an Endocrine Society clinical practice guideline. JCEM. 2010; 96(7):1911-30. Capillary blood glucose ashwini urement by glucometer (mass/volume)Ordered By: Abi Sunshine on 03-16-2024 Glucose [Mass/Vol] 140 mg/dL Normal [facility] Comment on above: Random Glucose Refer ence Range is dependent on time and content of last meal. Glucose of more than 200 mg/dL in a nonstressed, ambulatory subject supports the diagnosis of Diabetes Mellitus. Result Comment: [place] om Glucose Reference Range is dependent on time and content of last meal. Glucose of more than 200 mg/dL in a nonstressed, ambulatory subject supports the diagnosis of Diabetes Mellitus. PERFORMED BY: [place] [address] PATHOLOGIST [employer] RIDGE HUERTA M.D. Performed By: #### C BC, CMP, LDLD, FE and TIBC, LIPID, URMA #### [address] 03-16-2024 L Specimen: [id number] Received: 03/16/24 Status: BLUE Neal Num: [id number] Spec Type: Surgical Subm Dr: Abi Sunshine DO Tissues: A Colon Biopsy (RT RANDOM COLON BX) B Colon Biopsy (RANDOM LT) C Colon Biopsy (TRANSV POLYPS) D Colon Biopsy (RECTAL POLYP) Procedures: HE/8, Gross/Micro L4/4 Age/ Patient Sex Location Account Attending Physician Rachel Mcgarry 44/F [id number] Abi Sunshine DO SPEC NUM: [id number] RECD: 03/16/24 STATUS: BLUE NEAL NUM: [id number] JOSPEH: 03/16/24- SUBM DR: Abi Sunshine DO ENTERED: 03/16/[address] [facility] [address]: SPEC TYPE: Surgical DEPT: S ORDERED: HE/, Gross/Micro L4/4 ORDERED: HE, Gross/Micro L4/4 Pathological Diagnosis A, right colon [...] -Serrated hyperplastic polyp in both fragments Specimen: [id number] Received: 03/16/24 Status: BLUE Neal Num: [id number] Spec Type: Surgical Subm Dr: Abi Sunshine DO Tissues: A Colon Biopsy (RT RANDOM COLON BX) B Colon Biopsy (RANDOM LT) C Colon Biopsy (TRANSV POLYPS) D Colon Biopsy (RECTAL POLYP) Procedures: , Gross/Micro L4/4 Patient: Rachel Mcgarry [id number] (Continued) Specimen: [id number] Received: 03/16/24 (Continued) Signed (signature on file) GersonMelizaMoses Grimm MD 03/18/24 [facility] Specimen: [id number] Received: 03/16/24 Status: BLUE Neal Num: [id number] Spec Type: Surgical Subm Dr: Abi Sunshine, DO Tissues: A Colon Biopsy (RT RANDOM COLON BX) B Colon Biopsy (RANDOM LT) C Colon Biopsy (TRANSV POLYPS) D Colon Biopsy (RECTAL POLYP) Procedures: HE/8, Gross/Micro L4/4 Patient: Rachel Mcgarry [id number] (Continued) Specimen: [id number] Received: 03/16/24 (Continued) Clinical Information Screening, diarrhea. [...] cm, entirely submitted in D1. CPT Codes 36300S2 Specimen: [id number] Received: 03/16/24 Status: BLUE Neal Num: [id number] Spec Type: Surgical Subm Dr: Abi Sunshine DO Tissues: A Colon Biopsy (RT RANDOM COLON BX) B Colon Biopsy (RANDOM LT) C Colon Biopsy (TRANSV POLYPS) D Colon Biopsy (RECTAL POLYP) Procedures: GAVIN/Dagoberto, Gross/Micro L4/4 Patient: Rachel Mcgarry [id number] (Continued) Signed (signature on file) Philomena Grimm MD 03/18/24 [facility] Normal [facility] XR lumbar spine AP/LAT/FLX/E XTon 03-02-2024 XR lumbar spine AP/LAT/FLX/EXT [facility] [place] [address] XRay Report Signed Patient: Rachel Mcgarry MR#: [id number] 1 : 1980 Acct:[id number] Age/Sex: 44 / F ADM Date: 03/02/24 Loc: Room: Type: [facility] Attending Dr: Kyler Miramontes MD Copies to: [...] Yeboah Jr., D.OPanchito03/02/2024 2:52 PM Dictation Location: [place] [address] Transcribed By: ROSA MARIA 03/02/24 1452 Dictated By: Andrés Yeboah Jr, DO 03/02/24 1444 Signed By: 03/02/24 1452 Luisito [facility] US breast RT limitedon 02-08 US breast RT limited [facility] [place] [address] [place] [address] Ultrasound Report Signed Patient: Rachel Mcgarry MR#: [id number] 1 : 1980 Acct:[id number] Age/Sex: 44 / F ADM Date: 02/09/24 Loc: [facility] Room: Type: [facility] Attending Dr: Ajit DEJESUS Ordering Provider: OLEG [...] Dar Messina M.D.02/09/2024 9:33 AM Dictation Location: [facility] Tech: Janet Krause Transcribed By: ROSA MARIA 02/09/24 0966 Dictated By: Dar Messina II, MD 02/09/24 0929 Signed By: 02/09/24 0933 Normal [facility] MM screening mammo BI w/CADo n 02-04-2024 MM screening mammo BI w/CAD [facility] [place] [address] [place], [place] [id number] Mammography Report Signed Patient: Rachel Mcgarry MR#: [id number] 1 : 1980 Acct:[id number] Age/Sex: 44 / F ADM Date: 02/04/24 Loc: CT Room: Type: [facility] Attending Dr: Ajit DEJESUS Copies to: OLEG [...] Eda Yañez M.D.02/04/2024 2:28 PM Dictation Location: [facility] [facility] Transcribed By: ROSA MARIA 02/04/24 5351 Dictated By: Eda Yañez MD 02/04/24 1418 Signed By: 02/04/24 1428 Normal [facility] US renal BIon 01-21-2024 US renal BI [facility] Main [place] [id number] Ultrasound Report Signed Patient: Rachel Mcgarry MR#: [id number] 1 : 1980 Acct:[id number] Age/Sex: 44 / F ADM Date: 01/21/24 Loc: Room: Type: [facility] Attending Dr: Ajit Pettit 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 Ordering Provider: OLEG Sharp Date of Service: [...] Yeboah Jr., D.O.01/21/2024 2:50 PM Dictation Location: [place] [address] Tech: Mariza Garnett Transcribed By: ROSA MARIA 01/21/24 1450 Dictated By: Andrés Yeboah Jr, DO 01/21/24 1450 Signed By: 01/21/24 1450 Normal [facility] Alanine aminotransferase [En zymatic activity/volume] in Serum or PlasmaOrdered By: Ajit Petitt on 01-18-2024 ALT [Catalytic activity/Vol] 8 U/L Normal 7-52 [facility] Comment on above: Order Comment: Reaso n for Exam Type 2 diabetes mellitus without complication, without long- Performed By: #### C BC, CMP, LDLD, FE and TIBC, LIPID, URMA #### [facility] [address] Albumin [Mass/volume] in Ser um or Plasma by Bromocresol green (BCG) dye binding methoOrdered By: Ajit Pettit on 01-18-2024 Albumin BCG dye [Mass/Vol] 4.1 g/dL 3.5-5.7 [facility] Alkaline phosphatase [Enzyma tic activity/volume] in Serum or PlasmaOrdered By: Ajit Pettit on 01-18-2024 ALP [Catalytic activity/Vol] 58 U/L Normal 34-104 [facility] Comment on above: Order Comment: Reaso n for Exam Type 2 diabetes mellitus without complication, without long- Performed By: #### C BC, CMP, LDLD, FE and TIBC, LIPID, URMA #### [address] Aspartate aminotransferase [ Enzymatic activity/volume] in Serum or PlasmaOrdered By: Ajit Pettit on 01-18-2024 AST [Catalytic activity/Vol] 9 U/L Low 13-39 [facility] Comment on above: Order Comment: Reaso n for Exam Type 2 diabetes mellitus without complication, without long- Performed By: #### C BC, CMP, LDLD, FE and TIBC, LIPID, URMA #### [address] Automated basophil %Ordered By: Ajit Pettit on 01-18-2024 Basophils/100 WBC (Bld) 1.2 % Normal . [facility] Comment on above: Order Comment: Reaso n for Exam Type 2 diabetes mellitus without complication, without long- Performed By: #### C BC, CMP, LDLD, FE and TIBC, LIPID, URMA #### [place] [address] [place] Automated basophil countOrde red By: Ajit Pettit on 01-18-2024 Basophils (Bld) [#/Vol] 0.2 10*3/uL Normal 0.0-0.2 [facility] Comment on above: Order Comment: Reaso n for Exam Type 2 diabetes mellitus without complication, without long- Result Comment: PERF ORMED BY: [place] [address] PATHOLOGIST [employer] RIDGE HUERTA M.D. Performed By: #### C BC, CMP, LDLD, FE and TIBC, LIPID, URMA #### [facility] [address] [place] [address] Automated blood monocyte cou ntOrdered By: Ajit Pettit on 01-18-2024 Monocytes (Bld) [#/Vol] 0.9 10*3/uL High 0.0-0.8 [facility] Comment on above: Order Comment: Reaso n for Exam Type 2 diabetes mellitus without complication, without long- Performed By: #### C BC, CMP, LDLD, FE and TIBC, LIPID, URMA #### [facility] [address] [place] [address] Automated eosinophil %Ordere d By: Ajit Pettit on 01-18-2024 Eosinophils/100 WBC (Bld) 0.9 % Normal . [facility] Comment on above: Order Comment: Reaso n for Exam Type 2 diabetes mellitus without complication, without long- Performed By: #### C BC, CMP, LDLD, FE and TIBC, LIPID, URMA #### [facility] [address] [place] [address] Automated eosinophil countOr dered By: Ajit Pettit on 01-18-2024 Eosinophils (Bld) [#/Vol] 0.1 10*3/uL Normal 0.0-0.45 [facility] Comment on above: Order Comment: Reaso n for Exam Type 2 diabetes mellitus without complication, without long- Performed By: #### C BC, CMP, LDLD, FE and TIBC, LIPID, URMA #### [facility] [address] [place] [address] Automated monocyte %Ordered By: Ajit Pettit on 01-18-2024 Monocytes/100 WBC (Bld) 7.1 % Normal . [facility] Comment on above: Order Comment: Reaso n for Exam Type 2 diabetes mellitus without complication, without long- Performed By: #### C BC, CMP, LDLD, FE and TIBC, LIPID, URMA #### [facility] [address] [place] [address] [place] Automated neutrophil %Ordere d By: Ajit Pettit on 01-18-2024 Neutrophils/100 WBC (Bld) 60.9 % Normal . [facility] Comment on above: Order Comment: Reaso n for Exam Type 2 diabetes mellitus without complication, without long- Performed By: #### C BC, CMP, LDLD, FE and TIBC, LIPID, URMA #### [facility] [address] Bilirubin.total [Mass/volume ] in Serum or PlasmaOrdered By: Ajit Pettit on 01-18-2024 Bilirubin [Mass/Vol] 0.4 mg/dL Normal 0.3-1.0 [facility] Comment on above: Order Comment: Reaso n for Exam Type 2 diabetes mellitus without complication, without long- Performed By: #### C BC, CMP, LDLD, FE and TIBC, LIPID, URMA #### [facility] [address] Calcium [Mass/volume] in Ser um or PlasmaOrdered By: Ajit Pettit on 01-18-2024 Calcium [Mass/Vol] 9.5 mg/dL Normal 8.6-10.3 [facility] Comment on above: Order Comment: Reaso n for Exam Type 2 diabetes mellitus without complication, without long- Performed By: #### C BC, CMP, LDLD, FE and TIBC, LIPID, URMA #### [facility] [address] Carbon dioxide, total [Moles /volume] in Serum or PlasmaOrdered By: Ajit Pettit on 01-18-2024 CO2 [Moles/Vol] 22.0 mmol/L Normal 21.0-31.0 [facility] Comment on above: Order Comment: Reaso n for Exam Type 2 diabetes mellitus without complication, without long- Performed By: #### C BC, CMP, LDLD, FE and TIBC, LIPID, URMA #### [facility] [address] [place] [id number] [place] Chloride [Moles/volume] in S alissa or PlasmaOrdered By: Ajit Pettit on 01-18-2024 Chloride [Moles/Vol] 103 mmol/L Normal 98-107 [facility] Comment on above: Order Comment: Reaso n for Exam Type 2 diabetes mellitus without complication, without long- Performed By: #### C BC, CMP, LDLD, FE and TIBC, LIPID, URMA #### [facility] [address] [place] [id number] [place] Cholesterol [Mass/volume] in Serum or PlasmaOrdered By: Ajit Pettit on 01-18-2024 Cholesterol [Mass/Vol] 188 mg/dL Normal 140-200 [facility] Comment on above: Chol less [...] LDLD, FE and TIBC, LIPID, URMA #### [facility] [address] [place] [id number] [place] Cholesterol in LDL Calc [Mas s/Vol]Ordered By: Ajit Pettit on 01-18-2024 Cholesterol in LDL [Mass/Vol] TNP [facility] Comment on above: Test not performed Cholesterol in LDL [Mass/vol ume] in Serum or PlasmaOrdered By: Ajit Pettit on 01-18-2024 Cholesterol in LDL [Mass/Vol] 97 mg/dL 0-100 [facility] Comment on above: LDL ATP III CLASSIFI CATIONLDL less than 100 mg/dL OptimalLDL 100-129 mg/dL Near or above optimalLDL 130-159 mg/dL Borderline highLDL 160-189 mg/dL HighLDL greater than 189 mg/dL Very high Cholesterol in VLDL Calc [Ma ss/Vol]Ordered By: Ajit Pettit on 01-18-2024 Cholesterol in VLDL [Mass/Vol] 88 mg/dL [facility] Complete Blood Count Auto Di ffon 01-18-2024 Mean Corpuscular HGB Conc 33.1 g/dL Normal 32.0-35.0 [facility] Comment on above: Order Comment: Reaso n for Exam Type 2 diabetes mellitus without complication, without long- Performed By: #### C BC, CMP, LDLD, FE and TIBC, LIPID, URMA #### [facility] [address] NRBC% 0.2 /100{WBC} Normal 0-0.5 [facility] Comment on above: Order Comment: Reaso n for Exam Type 2 diabetes mellitus without complication, without long- Performed By: #### C BC, CMP, LDLD, FE and TIBC, LIPID, URMA #### [facility] [address] Comprehensive Metabolic Pane mark 01-18-2024 Albumin [Mass/Vol] 4.1 g/dL Normal 3.5-5.7 [facility] Comment on above: Order Comment: Reaso n for Exam Type 2 diabetes mellitus without complication, without long- Performed By: #### C BC, CMP, LDLD, FE and TIBC, LIPID, URMA #### [address] GFR/1.73 sq M.predicted MDRD (S/P/Bld) [Vol rate/Area] mL/min/{1.73_m2} Normal [facility] Comment on above: Order Comment: Reaso n for Exam Type 2 diabetes mellitus without complication, without long- Performed By: #### C BC, CMP, LDLD, FE and TIBC, LIPID, URMA #### [facility] [address] Creatinine [Mass/volume] in Serum or PlasmaOrdered By: Ajit Pettit on 01-18-2024 Creatinine [Mass/Vol] 0.42 mg/dL Low 0.60-1.20 [facility] Comment on above: Order Comment: Reaso n for Exam Type 2 diabetes mellitus without complication, without long- Performed By: #### C BC, CMP, LDLD, FE and TIBC, LIPID, URMA #### [facility] [address] [place] [address] [place] Erythrocyte distribution wid th [Ratio] by Automated countOrdered By: Ajit Pettit on 01-18-2024 Erythrocyte distribution width (RBC) [Ratio] 13.4 % Normal 11.9-15.3 [facility] Comment on above: Order Comment: Reaso n for Exam Type 2 diabetes mellitus without complication, without long- Performed By: #### C BC, CMP, LDLD, FE and TIBC, LIPID, URMA #### [facility] [address] [place] [id number] [facility] Erythrocytes [#/volume] in B lood by Automated countOrdered By: Ajit Pettit on 01-18-2024 RBC (Bld) [#/Vol] 4.67 10*6/uL Normal 3.60-5.00 [facility] Comment on above: Order Comment: Reaso n for Exam Type 2 diabetes mellitus without complication, without long- Performed By: #### C BC, CMP, LDLD, FE and TIBC, LIPID, URMA #### [facility] [address] [place] [address] [place] Glucose [Mass/volume] in Ser um or PlasmaOrdered By: Ajit Pettit on 01-18-2024 Glucose [Mass/Vol] 107 mg/dL High 70-100 [facility] Comment on above: ADA recommended refe rence rangeRandom Glucose Reference Range is dependent on time and content of last meal. Glucose of more than 200 mg/dL in a nonstressed, ambulatory subject supports the diagnosis of Diabetes Mellitus. Order Comment: Reaso n for Exam Type 2 diabetes mellitus without complication, without long- Result Comment: [place] om Glucose Reference Range is dependent on time and content of last meal. Glucose of more than 200 mg/dL in a nonstressed, ambulatory subject supports the diagnosis of Diabetes Mellitus. ADA recommended reference range Performed By: #### C BC, CMP, LDLD, FE and TIBC, LIPID, URMA #### [facility] [address] [place] [id number] [facility] Hematocrit [Volume Fraction] of Blood by Automated countOrdered By: Ajit Pettit on 01-18-2024 Hematocrit (Bld) [Volume fraction] 40.8 % Normal 34.0-46.4 [facility] Comment on above: Order Comment: Reaso n for Exam Type 2 diabetes mellitus without complication, without long- Performed By: #### C BC, CMP, LDLD, FE and TIBC, LIPID, URMA #### [facility] [address] Hemoglobin [Mass/volume] in BloodOrdered By: Ajit Pettit on 01-18-2024 Hemoglobin (Bld) [Mass/Vol] 13.5 g/dL Normal 11.8-15.4 [facility] Comment on above: Order Comment: Reaso n for Exam Type 2 diabetes mellitus without complication, without long- Performed By: #### C BC, CMP, LDLD, FE and TIBC, LIPID, URMA #### [address] Iron [Mass/volume] in Serum or PlasmaOrdered By: Ajit Pettit on 01-18-2024 Iron [Mass/Vol] 89 ug/dL Normal 50-212 [facility] Comment on above: Order Comment: Reaso n for Exam Type 2 diabetes mellitus without complication, without long- Performed By: #### C BC, CMP, LDLD, FE and TIBC, LIPID, URMA #### [place] [id number] [place] Iron and TIBC Profileon 01-02 % Iron Saturation 23.8 % Normal 20-50 [facility] Comment on above: Order Comment: Reaso n for Exam Type 2 diabetes mellitus without complication, without long- Performed By: #### C BC, CMP, LDLD, FE and TIBC, LIPID, URMA #### [facility] [address] [place] [id number] [place] Total Iron Binding Capacity 374 ug/dL Normal 255-450 [facility] Comment on above: Order Comment: Reaso n for Exam Type 2 diabetes mellitus without complication, without long- Performed By: #### C BC, CMP, LDLD, FE and TIBC, LIPID, URMA #### [facility] [address] [place] [address] Iron binding capacity [Mass/ volume] in Serum or PlasmaOrdered By: Ajit Pettit on 01-18-2024 Iron binding capacity [Mass/Vol] 374 ug/dL 255-450 [facility] Iron saturation [Mass Fracti on] in Serum or PlasmaOrdered By: Ajit Pettit on 01-18-2024 Iron saturation [Mass fraction] 23.8 % 20-50 [facility] LDL Cholesterol Measuredon 0 01-18-2024 LDL Cholesterol Measured 97 mg/dL Normal 0-100 [facility] Comment on above: Order Comment: Reaso n for Exam Type 2 diabetes mellitus without complication, without long- Result Comment: LDL ATP III CLASSIFICATION LDL less than 100 mg/dL Optimal LDL 100-129 mg/dL Near or above optimal LDL 130-159 mg/dL Borderline high LDL 160-189 mg/dL High LDL greater than 189 mg/dL Very high PERFORMED BY: [facility] [address] [place] [address] PATHOLOGIST [employer] RIDGE HUERTA M.D. Performed By: #### C BC, CMP, LDLD, FE and TIBC, LIPID, URMA #### [facility] [address] Leukocytes [#/volume] correc cherie for nucleated erythrocytes in Blood by Automated counOrdered By: Ajit Pettit on 01-18-2024 WBC corrected for nucl RBC Auto (Bld) [#/Vol] 12.4 10*3/uL High 3.8-11.6 [facility] Leukocytes [#/volume] in Blo od by Automated countOrdered By: Ajit Pettit on 01-18-2024 WBC (Bld) [#/Vol] 12.4 10*3/uL High 3.8-11.6 [facility] Comment on above: Order Comment: Reaso n for Exam Type 2 diabetes mellitus without complication, without long- Performed By: #### C BC, CMP, LDLD, FE and TIBC, LIPID, URMA #### [facility] [address] Lipid Panelon 01-18-2024 LDL Cholesterol,Calculated Not performed Normal 0-100 [facility] Comment on above: Order Comment: Reaso n for Exam Type 2 diabetes mellitus without complication, without long- Performed By: #### C BC, CMP, LDLD, FE and TIBC, LIPID, URMA #### [facility] [address] Triglyceride w/Reflex 441 mg/dL High 0-149 [facility] Comment on above: Order [...] LDLD, FE and TIBC, LIPID, URMA #### [facility] [address] VLDL CHOLESTEROL 88 mg/dL Normal [facility] Comment on above: Order Comment: Reaso n for Exam Type 2 diabetes mellitus without complication, without long- Performed By: #### C BC, CMP, LDLD, FE and TIBC, LIPID, URMA #### [facility] [address] Lymphocytes [#/volume] in Bl ood by Automated countOrdered By: Ajit Pettit on 01-18-2024 Lymphocytes (Bld) [#/Vol] 3.7 10*3/uL Normal 1.00-4.8 [facility] Comment on above: Order Comment: Reaso n for Exam Type 2 diabetes mellitus without complication, without long- Performed By: #### C BC, CMP, LDLD, FE and TIBC, LIPID, URMA #### [facility] [address] [place] [address] [place] Lymphocytes/100 leukocytes i n Blood by Automated countOrdered By: Ajit Pettit on 01-18-2024 Lymphocytes/100 WBC (Bld) 29.9 % Normal . [facility] Comment on above: Order Comment: Reaso n for Exam Type 2 diabetes mellitus without complication, without long- Performed By: #### C BC, CMP, LDLD, FE and TIBC, LIPID, URMA #### [facility] [address] [place] [address] [place] MCH [Entitic mass] by Automa cherie countOrdered By: Ajit Pettit on 01-18-2024 MCH (RBC) [Entitic mass] 28.9 pg Normal 24.7-34.3 [facility] Comment on above: Order Comment: Reaso n for Exam Type 2 diabetes mellitus without complication, without long- Performed By: #### C BC, CMP, LDLD, FE and TIBC, LIPID, URMA #### [facility] [address] MCHC Auto (RBC) [Mass/Vol]Or dered By: Ajit Pettit on 01-18-2024 MCHC (RBC) [Mass/Vol] 33.1 g/dL 32.0-35.0 [facility] MCV [Entitic volume] by Auto mated countOrdered By: Ajit Pettit on 01-18-2024 MCV (RBC) [Entitic vol] 87.3 fL Normal 80-100 [facility] Comment on above: Order Comment: Reaso n for Exam Type 2 diabetes mellitus without complication, without long- Performed By: #### C BC, CMP, LDLD, FE and TIBC, LIPID, URMA #### [address] Microalbumin [Mass/volume] i n UrineOrdered By: Ajit Pettit on 01-18-2024 Albumin DL <= 20 mg/L (U) [Mass/Vol] 0.8 mg/dL Normal 0.0-1.8 [facility] Comment on above: Order Comment: Reaso n for Exam Type 2 diabetes mellitus without complication, without long- Result Comment: PERF ORMED BY: [place] [address] PATHOLOGIST [employer] RIDGE HUERTA M.D. Performed By: #### C BC, CMP, LDLD, FE and TIBC, LIPID, URMA #### [facility] [address] Neutrophils [#/volume] in Bl ood by Automated countOrdered By: Ajit Pettit on 01-18-2024 Neutrophils (Bld) [#/Vol] 7.6 10*3/uL Normal 1.8-7.7 [facility] Comment on above: Order Comment: Reaso n for Exam Type 2 diabetes mellitus without complication, without long- Performed By: #### C BC, CMP, LDLD, FE and TIBC, LIPID, URMA #### [facility] [address] No Panel InformationOrdered By: Ajit Pettit on 01-18-2024 Estimated GFR (CKD-EPI) > 60.0 mL/Min [facility] Creatinine Clearance (Chem N/A [facility] Nucleated erythrocytes [Pres ence] in Blood by Automated countOrdered By: Ajit Pettit on 01-18-2024 Nucleated RBC Auto Ql (Bld) 0.2 /100{WBC} 0-0.5 [facility] Platelet mean volume [Entiti c volume] in Blood by Automated countOrdered By: Ajit Pettit on 01-18-2024 Platelet mean volume (Bld) [Entitic vol] 8.8 fL Normal 6.3-10.7 [facility] Comment on above: Order Comment: Reaso n for Exam Type 2 diabetes mellitus without complication, without long- Performed By: #### C BC, CMP, LDLD, FE and TIBC, LIPID, URMA #### [facility] [address] Platelets [#/volume] in Bloo d by Automated countOrdered By: Ajit Pettit on 01-18-2024 Platelets (Bld) [#/Vol] 275 10*3/uL Normal 150-450 [facility] Comment on above: Order Comment: Reaso n for Exam Type 2 diabetes mellitus without complication, without long- Performed By: #### C BC, CMP, LDLD, FE and TIBC, LIPID, URMA #### [facility] [address] Potassium [Moles/volume] in Serum or PlasmaOrdered By: Ajit Pettit on 01-18-2024 Potassium [Moles/Vol] 4.3 mmol/L Normal 3.5-5.1 [facility] Comment on above: Order Comment: Reaso n for Exam Type 2 diabetes mellitus without complication, without long- Performed By: #### C BC, CMP, LDLD, FE and TIBC, LIPID, URMA #### [facility] [address] Protein [Mass/volume] in Ser um or PlasmaOrdered By: Ajit Pettit on 01-18-2024 Protein [Mass/Vol] 6.6 g/dL Normal 6.4-8.9 [facility] Comment on above: Order Comment: Reaso n for Exam Type 2 diabetes mellitus without complication, without long- Performed By: #### C BC, CMP, LDLD, FE and TIBC, LIPID, URMA #### [facility] [address] Serum globulin measurement b y calculation (mass/volume)Ordered By: Ajit Pettit on 01-18-2024 Globulin (S) [Mass/Vol] 2.5 g/dL Normal [facility] Comment on above: Order Comment: Reaso n for Exam Type 2 diabetes mellitus without complication, without long- Performed By: #### C BC, CMP, LDLD, FE and TIBC, LIPID, URMA #### [facility] [address] Serum or plasma albumin/glob ulin mass ratioOrdered By: Ajit Pettit on 01-18-2024 Albumin/Globulin [Mass ratio] 1.6 {ratio} Normal [facility] Comment on above: Order Comment: Reaso n for Exam Type 2 diabetes mellitus without complication, without long- Performed By: #### C BC, CMP, LDLD, FE and TIBC, LIPID, URMA #### [facility] [address] Serum or plasma anion gap de terminationOrdered By: Ajit Pettit on 01-18-2024 Anion gap [Moles/Vol] 15.3 mmol/L High 6.0-15.0 [facility] Comment on above: Order Comment: Reaso n for Exam Type 2 diabetes mellitus without complication, without long- Performed By: #### C BC, CMP, LDLD, FE and TIBC, LIPID, URMA #### [facility] [address] Serum or plasma high density lipoprotein (HDL) cholesterol measurementOrdered By: Ajit Pettit on 01-18-2024 Cholesterol in HDL [Mass/Vol] 37 mg/dL Normal 23-92 [facility] Comment on above: HDL CHOL [...] LDLD, FE and TIBC, LIPID, URMA #### [facility] [address] Serum or plasma total choles terol/high density lipoprotein (HDL) cholesterol mass ratOrdered By: Ajit Pettit on 01-18-2024 Cholesterol.total/Suellen sterol in HDL [Mass ratio] 5.1 {ratio} Normal <5.0 [facility] Comment on above: Order Comment: Reaso n for Exam Type 2 diabetes mellitus without complication, without long- Performed By: #### C BC, CMP, LDLD, FE and TIBC, LIPID, URMA #### [facility] [address] Result Comment: PERF ORMED BY: [place] [address] PATHOLOGIST [employer] RIDGE HUERTA M.D. Sodium [Moles/volume] in Ser um or PlasmaOrdered By: Ajit Pettit on 01-18-2024 Sodium [Moles/Vol] 136 mmol/L Normal 136-145 [facility] Comment on above: Order Comment: Reaso n for Exam Type 2 diabetes mellitus without complication, without long- Performed By: #### C BC, CMP, LDLD, FE and TIBC, LIPID, URMA #### [facility] [address] [place] [address] [place] Transferrin [Mass/volume] in Serum or PlasmaOrdered By: Ajit Pettit on 01-18-2024 Transferrin [Mass/Vol] 267 mg/dL Normal 203-362 [facility] Comment on above: Order Comment: Reaso n for Exam Type 2 diabetes mellitus without complication, without long- Performed By: #### C BC, CMP, LDLD, FE and TIBC, LIPID, URMA #### [facility] [address] [place] [id number] [facility] Triglyceride [Mass/volume] i n Serum or PlasmaOrdered By: Ajit Pettit on 01-18-2024 Triglyceride [Mass/Vol] 441 mg/dL High 0-149 [facility] Comment on above: If the triglyceride result [...] Urea nitrogen [Mass/Vol] 10 mg/dL Normal 7-25 [facility] Comment on above: Order Comment: Reaso n for Exam Type 2 diabetes mellitus without complication, without long- Performed By: #### C BC, CMP, LDLD, FE and TIBC, LIPID, URMA #### [facility] [address] [place] [id number] [place] Activated partial thrombopla stin time (aPTT) in platelet poor plasma by coagulation aOrdered By: Diego Noble on 10-16-2023 aPTT Coag (PPP) [Time] 28.2 s 25.1-36.5 [facility] Comment on above: A hematocrit value g reater than 55% may lead to inaccurate results in coagulation testing. Patients having hematocrit values >55% require a special collection tube for coagulation studies. Please contact the laboratory at [phone] for redraw instructions. Alanine aminotransferase [En zymatic activity/volume] in Serum or PlasmaOrdered By: Diego Noble on 10-16-2023 ALT [Catalytic activity/Vol] 10 U/L Normal 7-52 [facility] Comment on above: Performed By: #### C BC, CMP, LDLD, FE and TIBC, LIPID, URMA #### [facility] [address] Albumin [Mass/volume] in Ser um or Plasma by Bromocresol green (BCG) dye binding methoOrdered By: Diego Noble on 10-16-2023 Albumin BCG dye [Mass/Vol] 3.7 g/dL 3.5-5.7 [facility] Alkaline phosphatase [Enzyma tic activity/volume] in Serum or PlasmaOrdered By: Diego Noble on 10-16-2023 ALP [Catalytic activity/Vol] 84 U/L Normal 34-104 [facility] Comment on above: Performed By: #### C BC, CMP, LDLD, FE and TIBC, LIPID, URMA #### [facility] [address] Aspartate aminotransferase [ Enzymatic activity/volume] in Serum or PlasmaOrdered By: Diego Noble on 10-16-2023 AST [Catalytic activity/Vol] 14 U/L Normal 13-39 [facility] Comment on above: Performed By: #### C BC, CMP, LDLD, FE and TIBC, LIPID, URMA #### [facility] [address] Automated basophil %Ordered By: Diego Noble on 10-16-2023 Basophils/100 WBC (Bld) 2.6 % Normal . [facility] Comment on above: Performed By: #### C BC, CMP, LDLD, FE and TIBC, LIPID, URMA #### [facility] [address] Automated basophil countOrde red By: Diego Noble on 10-16-2023 Basophils (Bld) [#/Vol] 0.4 10*3/uL High 0.0-0.2 [facility] Comment on above: Result Comment: PERF ORMED BY: [place] [address] PATHOLOGIST [employer] RIDGE HUERTA M.D. Performed By: #### C BC, CMP, LDLD, FE and TIBC, LIPID, URMA #### [address] Automated blood monocyte cou ntOrdered By: Diego Noble on 10-16-2023 Monocytes (Bld) [#/Vol] 0.9 10*3/uL High 0.0-0.8 [facility] Comment on above: Performed By: #### C BC, CMP, LDLD, FE and TIBC, LIPID, URMA #### [address] Automated eosinophil %Ordere d By: Diego Noble on 10-16-2023 Eosinophils/100 WBC (Bld) 3.3 % Normal . [facility] Comment on above: Performed By: #### C BC, CMP, LDLD, FE and TIBC, LIPID, URMA #### [address] Automated eosinophil countOr dered By: Diego Noble on 10-16-2023 Eosinophils (Bld) [#/Vol] 0.5 10*3/uL High 0.0-0.45 [facility] Comment on above: Performed By: #### C BC, CMP, LDLD, FE and TIBC, LIPID, URMA #### [address] Automated monocyte %Ordered By: Diego Noble on 10-16-2023 Monocytes/100 WBC (Bld) 6.3 % Normal . [facility] Comment on above: Performed By: #### C BC, CMP, LDLD, FE and TIBC, LIPID, URMA #### [address] Automated neutrophil %Ordere d By: Diego Noble on 10-16-2023 Neutrophils/100 WBC (Bld) 53.8 % Normal . [facility] Comment on above: Performed By: #### C BC, CMP, LDLD, FE and TIBC, LIPID, URMA #### [facility] [address] [place] [address] Bilirubin.total [Mass/volume ] in Serum or PlasmaOrdered By: Diego Noble on 10-16-2023 Bilirubin [Mass/Vol] 0.2 mg/dL Low 0.3-1.0 [facility] Comment on above: Performed By: #### C BC, CMP, LDLD, FE and TIBC, LIPID, URMA #### [address] Blood Cultureon 10-16-2023 Bacteria identified Cx Nom (Bld) NO GROWTH 5 DAYS PERFORMED BY: [place] [address] PATHOLOGIST [employer] RIDGE HUERTA M.D. Normal [facility] Comment on above: Performed By: #### C UBLD, LACTIC ####[address] Bacteria identified Cx Nom (Bld) NO GROWTH 5 DAYS PERFORMED BY: [place] [address] PATHOLOGIST [employer] RIDGE HUERTA M.D. Normal [facility] Comment on above: Performed By: #### C UBLD, LACTIC ####[address] Calcium [Mass/volume] in Ser um or PlasmaOrdered By: Diego Noble on 10-16-2023 Calcium [Mass/Vol] 9.1 mg/dL Normal 8.6-10.3 [facility] Comment on above: Performed By: #### C BC, CMP, LDLD, FE and TIBC, LIPID, URMA #### [place] [id number] [place] Carbon dioxide, total [Moles /volume] in Serum or PlasmaOrdered By: Diego Noble on 10-16-2023 CO2 [Moles/Vol] 25.9 mmol/L Normal 21.0-31.0 [facility] Comment on above: Performed By: #### C BC, CMP, LDLD, FE and TIBC, LIPID, URMA #### [address] Chloride [Moles/volume] in S alissa or PlasmaOrdered By: Diego Noble on 10-16-2023 Chloride [Moles/Vol] 101 mmol/L Normal 98-107 [facility] Comment on above: Performed By: #### C BC, CMP, LDLD, FE and TIBC, LIPID, URMA #### [address] Complete Blood Count Auto Di ffon 10-16-2023 Mean Corpuscular HGB Conc 34.1 g/dL Normal 32.0-35.0 [facility] Comment on above: Performed By: #### C BC, CMP, LDLD, FE and TIBC, LIPID, URMA #### [address] Monocytes/100 WBC (Bld) 20.62 % High 0.00-20.00 [facility] Comment on above: Result Comment: For adults in ED, MDW > 20.0 may be associated with a higher risk of sepsis during the first 12 hrs of hospital admission Performed By: #### C BC, CMP, LDLD, FE and TIBC, LIPID, URMA #### [address] NRBC% 0.1 /100{WBC} Normal 0-0.5 [facility] Comment on above: Performed By: #### C BC, CMP, LDLD, FE and TIBC, LIPID, URMA #### [address] Comprehensive Metabolic Pane mark 10-16-2023 Albumin [Mass/Vol] 3.7 g/dL Normal 3.5-5.7 [facility] Comment on above: Performed By: #### C BC, CMP, LDLD, FE and TIBC, LIPID, URMA #### [address] [place] [address] [place] Creatinine Clr Calc Pharmacy 134.19 Normal [facility] Comment on above: Result Comment: PERF ORMED BY: [place] [address] PATHOLOGIST [employer] RIDGE HUERTA M.D. Performed By: #### C BC, CMP, LDLD, FE and TIBC, LIPID, URMA #### [address] GFR/1.73 sq M.predicted MDRD (S/P/Bld) [Vol rate/Area] mL/min/{1.73_m2} Normal [facility] Comment on above: Performed By: #### C BC, CMP, LDLD, FE and TIBC, LIPID, URMA #### [address] Creatinine [Mass/volume] in Serum or PlasmaOrdered By: Diego Nbole on 10-16-2023 Creatinine [Mass/Vol] 0.55 mg/dL Low 0.60-1.20 [facility] Comment on above: Performed By: #### C BC, CMP, LDLD, FE and TIBC, LIPID, URMA #### [address] Erythrocyte distribution wid th [Ratio] by Automated countOrdered By: Diego Noble on 10-16-2023 Erythrocyte distribution width (RBC) [Ratio] 13.0 % Normal 11.9-15.3 [facility] Comment on above: Performed By: #### C BC, CMP, LDLD, FE and TIBC, LIPID, URMA #### [address] Erythrocytes [#/volume] in B lood by Automated countOrdered By: Diego Noble on 10-16-2023 RBC (Bld) [#/Vol] 3.84 10*6/uL Normal 3.60-5.00 [facility] Comment on above: Performed By: #### C BC, CMP, LDLD, FE and TIBC, LIPID, URMA #### [address] [place] [address] [place] Glucose [Mass/volume] in Ser um or PlasmaOrdered By: Diego Noble on 10-16-2023 Glucose [Mass/Vol] 197 mg/dL High 70-100 [facility] Comment on above: ADA recommended refe rence rangeRandom Glucose Reference Range is dependent on time and content of last meal. Glucose of more than 200 mg/dL in a nonstressed, ambulatory subject supports the diagnosis of Diabetes Mellitus. Result Comment: [place] om Glucose Reference Range is dependent on time and content of last meal. Glucose of more than 200 mg/dL in a nonstressed, ambulatory subject supports the diagnosis of Diabetes Mellitus. ADA recommended reference range Performed By: #### C BC, CMP, LDLD, FE and TIBC, LIPID, URMA #### [facility] [address] Hematocrit [Volume Fraction] of Blood by Automated countOrdered By: Diego Noble on 10-16-2023 Hematocrit (Bld) [Volume fraction] 34.0 % Normal 34.0-46.4 [facility] Comment on above: Performed By: #### C BC, CMP, LDLD, FE and TIBC, LIPID, URMA #### [facility] [address] Hemoglobin [Mass/volume] in BloodOrdered By: Diego Noble on 10-16-2023 Hemoglobin (Bld) [Mass/Vol] 11.6 g/dL Low 11.8-15.4 [facility] Comment on above: Performed By: #### C BC, CMP, LDLD, FE and TIBC, LIPID, URMA #### [facility] [address] INR in Platelet poor plasma by Coagulation assayOrdered By: Diego Noble on 10-16-2023 INR Coag (PPP) [Relative time] 0.9 {INR} Normal [facility] Comment on above: INR Therapeutic [...] LDLD, FE and TIBC, LIPID, URMA #### [facility] [address] Lactate [Moles/volume] in Se rum or PlasmaOrdered By: Diego Noble on 10-16-2023 Lactate [Moles/Vol] 2.1 mmol/L Off scale high 0.5-2.2 [facility] Comment on above: Critical Result : Ca lled to and read back by: MACO BECK at: 10/16/2023 12:33:20 by:ECTOR Result Comment: Crit ical Result : Called to and read back by: MACO BECK at: 10/16/2023 12:33:20 by:ECTOR PERFORMED BY: [place] [address] PATHOLOGIST [employer] RIDGE HUERTA M.D. Performed By: #### C UBLD, LACTIC ####[facility] [id number] Leukocytes [#/volume] correc cherie for nucleated erythrocytes in Blood by Automated counOrdered By: Diego Noble on 10-16-2023 WBC corrected for nucl RBC Auto (Bld) [#/Vol] 14.3 10*3/uL 3.8-11.6 [facility] Leukocytes [#/volume] in Blo od by Automated countOrdered By: Diego Noble on 10-16-2023 WBC (Bld) [#/Vol] 14.3 10*3/uL High 3.8-11.6 [facility] Comment on above: Performed By: #### C BC, CMP, LDLD, FE and TIBC, LIPID, URMA #### [address] Lymphocytes [#/volume] in Bl ood by Automated countOrdered By: Diego Noble on 10-16-2023 Lymphocytes (Bld) [#/Vol] 4.9 10*3/uL High 1.00-4.8 [facility] Comment on above: Performed By: #### C BC, CMP, LDLD, FE and TIBC, LIPID, URMA #### [address] Lymphocytes/100 leukocytes i n Blood by Automated countOrdered By: Diego Noble on 10-16-2023 Lymphocytes/100 WBC (Bld) 34.0 % Normal . [facility] Comment on above: Performed By: #### C BC, CMP, LDLD, FE and TIBC, LIPID, URMA #### [address] MCH [Entitic mass] by Automa cherie countOrdered By: Diego Noble on 10-16-2023 MCH (RBC) [Entitic mass] 30.3 pg Normal 24.7-34.3 [facility] Comment on above: Performed By: #### C BC, CMP, LDLD, FE and TIBC, LIPID, URMA #### [address] MCHC Auto (RBC) [Mass/Vol]Or dered By: Diego Noble on 10-16-2023 MCHC (RBC) [Mass/Vol] 34.1 g/dL 32.0-35.0 [facility] MCV [Entitic volume] by Auto mated countOrdered By: Diego Noble on 10-16-2023 MCV (RBC) [Entitic vol] 88.7 fL Normal 80-100 [facility] Comment on above: Performed By: #### C BC, CMP, LDLD, FE and TIBC, LIPID, URMA #### [address] Monocyte distribution width [Entitic volume] in Blood by AutomatedOrdered By: Diego Noble on 10-16-2023 Monocyte distribution width Auto (Bld) [Entitic vol] 20.62 % 0.00-20.00 [facility] Comment on above: For adults in ED, MD W > 20.0 may be associated with a higher risk of sepsis during the first 12 hrs of hospital admission Neutrophils [#/volume] in Bl ood by Automated countOrdered By: Diego Noble on 10-16-2023 Neutrophils (Bld) [#/Vol] 7.7 10*3/uL Normal 1.8-7.7 [facility] Comment on above: Performed By: #### C BC, CMP, LDLD, FE and TIBC, LIPID, URMA #### [facility] [address] [place] [address] No Panel InformationOrdered By: Diego Noble on 10-16-2023 Estimated GFR (CKD-EPI) > 60.0 mL/Min [facility] Creatinine Clearance (Chem 134.19 [facility] Nucleated erythrocytes [Pres ence] in Blood by Automated countOrdered By: Diego Noble on 10-16-2023 Nucleated RBC Auto Ql (Bld) 0.1 /100{WBC} 0-0.5 [facility] Partial Thromboplastin Timeo n 10-16-2023 aPTT Coag (Bld) [Time] 28.2 s Normal 25.1-36.5 [facility] Comment on above: Result Comment: A he matocrit value greater than 55% may lead to inaccurate results in coagulation testing. Patients having hematocrit values >55% require a special collection tube for coagulation studies. Please contact the laboratory at [phone] for redraw instructions. PERFORMED BY: [facility] [address] [place] [address] PATHOLOGIST [employer] RIDGE HUERTA M.D. Performed By: #### C BC, CMP, LDLD, FE and TIBC, LIPID, URMA #### [facility] [address] Platelet mean volume [Entiti c volume] in Blood by Automated countOrdered By: Diego Noble on 10-16-2023 Platelet mean volume (Bld) [Entitic vol] 6.7 fL Normal 6.3-10.7 [facility] Comment on above: Performed By: #### C BC, CMP, LDLD, FE and TIBC, LIPID, URMA #### [facility] [address] [place] [id number] [place] Platelets [#/volume] in Bloo d by Automated countOrdered By: Diego Noble on 10-16-2023 Platelets (Bld) [#/Vol] 454 10*3/uL High 150-450 [facility] Comment on above: Performed By: #### C BC, CMP, LDLD, FE and TIBC, LIPID, URMA #### [facility] [address] [place] [address] [place] Potassium [Moles/volume] in Serum or PlasmaOrdered By: Diego Noble on 10-16-2023 Potassium [Moles/Vol] 4.3 mmol/L Normal 3.5-5.1 [facility] Comment on above: Performed By: #### C BC, CMP, LDLD, FE and TIBC, LIPID, URMA #### [facility] [address] [place] [id number] [place] Protein [Mass/volume] in Ser um or PlasmaOrdered By: Diego Noble on 10-16-2023 Protein [Mass/Vol] 6.3 g/dL Low 6.4-8.9 [facility] Comment on above: Performed By: #### C BC, CMP, LDLD, FE and TIBC, LIPID, URMA #### [facility] [address] [place] [id number] [facility] Prothrombin time (PT)Ordered By: Diego Noble on 10-16-2023 PT Coag (PPP) [Time] 9.9 s Normal 9.0-12.9 [facility] Comment on above: A hematocrit value g reater than 55% may lead to inaccurate results in coagulation testing. Patients having hematocrit values >55% require a special collection tube for coagulation studies. Please contact the laboratory at [phone] for redraw instructions. Result Comment: A he matocrit value greater than 55% may lead to inaccurate results in coagulation testing. Patients having hematocrit values >55% require a special collection tube for coagulation studies. Please contact the laboratory at [phone] for redraw instructions. Performed By: #### C BC, CMP, LDLD, FE and TIBC, LIPID, URMA #### [facility] [address] Serum globulin measurement b y calculation (mass/volume)Ordered By: Diego Noble on 10-16-2023 Globulin (S) [Mass/Vol] 2.6 g/dL Normal [facility] Comment on above: Performed By: #### C BC, CMP, LDLD, FE and TIBC, LIPID, URMA #### [address] Serum or plasma albumin/glob ulin mass ratioOrdered By: Diego Noble on 10-16-2023 Albumin/Globulin [Mass ratio] 1.4 {ratio} Normal [facility] Comment on above: Performed By: #### C BC, CMP, LDLD, FE and TIBC, LIPID, URMA #### [address] Serum or plasma anion gap de terminationOrdered By: Diego Noble on 10-16-2023 Anion gap [Moles/Vol] 14.4 mmol/L Normal 6.0-15.0 [facility] Comment on above: Performed By: #### C BC, CMP, LDLD, FE and TIBC, LIPID, URMA #### [address] Sodium [Moles/volume] in Ser um or PlasmaOrdered By: Diego Noble on 10-16-2023 Sodium [Moles/Vol] 137 mmol/L Normal 136-145 [facility] Comment on above: Performed By: #### C BC, CMP, LDLD, FE and TIBC, LIPID, URMA #### [address] Urea nitrogen [Mass/volume] in Serum or PlasmaOrdered By: Diego Noble on 10-16-2023 Urea nitrogen [Mass/Vol] 12 mg/dL Normal 7-25 [facility] Comment on above: Performed By: #### C BC, CMP, LDLD, FE and TIBC, LIPID, URMA #### [address] Automated basophil %Ordered By: Ilene Lopez on 10-09-2023 Basophils/100 WBC (Bld) 0.4 % Normal . [facility] Comment on above: Performed By: #### C BC, CMP, LDLD, FE and TIBC, LIPID, URMA #### [address] Automated basophil countOrde red By: Ilene Lopez on 10-09-2023 Basophils (Bld) [#/Vol] 0.1 10*3/uL Normal 0.0-0.2 [facility] Comment on above: Result Comment: PERF ORMED BY: [place] [address] PATHOLOGIST [employer] RIDGE HUERTA M.D. Performed By: #### C BC, CMP, LDLD, FE and TIBC, LIPID, URMA #### [address] Automated blood monocyte cou ntOrdered By: Ilene Lopez on 10-09-2023 Monocytes (Bld) [#/Vol] 1.3 10*3/uL High 0.0-0.8 [facility] Comment on above: Performed By: #### C BC, CMP, LDLD, FE and TIBC, LIPID, URMA #### [address] Automated eosinophil %Ordere d By: Ilene Lopez on 10-09-2023 Eosinophils/100 WBC (Bld) 3.5 % Normal . [facility] Comment on above: Performed By: #### C BC, CMP, LDLD, FE and TIBC, LIPID, URMA #### [address] Automated eosinophil countOr dered By: Ilene Lopez on 10-09-2023 Eosinophils (Bld) [#/Vol] 0.5 10*3/uL High 0.0-0.45 [facility] Comment on above: Performed By: #### C BC, CMP, LDLD, FE and TIBC, LIPID, URMA #### [address] Automated monocyte %Ordered By: Ilene Lopez on 10-09-2023 Monocytes/100 WBC (Bld) 9.5 % Normal . [facility] Comment on above: Performed By: #### C BC, CMP, LDLD, FE and TIBC, LIPID, URMA #### [address] Automated neutrophil %Ordere d By: Ilene Lopez on 10-09-2023 Neutrophils/100 WBC (Bld) 70.1 % Normal . [facility] Comment on above: Performed By: #### C BC, CMP, LDLD, FE and TIBC, LIPID, URMA #### [address] Basic Metabolic Panelon Creatinine Clr Calc Pharmacy 153.15 Normal [facility] Comment on above: Result Comment: PERF ORMED BY: [place] [address] PATHOLOGIST [employer] RIDGE HUERTA M.D. Performed By: #### C BC, CMP, LDLD, FE and TIBC, LIPID, URMA #### [address] GFR/1.73 sq M.predicted MDRD (S/P/Bld) [Vol rate/Area] mL/min/{1.73_m2} Normal [facility] Comment on above: Performed By: #### C BC, CMP, LDLD, FE and TIBC, LIPID, URMA #### [address] Calcium [Mass/volume] in Ser um or PlasmaOrdered By: Ilene Lopez on 10-09-2023 Calcium [Mass/Vol] 7.9 mg/dL Low 8.6-10.3 [facility] Comment on above: Performed By: #### C BC, CMP, LDLD, FE and TIBC, LIPID, URMA #### [facility] [address] Capillary blood glucose ashwini urement by glucometer (mass/volume)Ordered By: Salazar Cabrera on 10-09-2023 Glucose [Mass/Vol] 299 mg/dL Normal [facility] Comment on above: Random Glucose Refer ence Range is dependent on time and content of last meal. Glucose of more than 200 mg/dL in a nonstressed, ambulatory subject supports the diagnosis of Diabetes Mellitus. Result Comment: [place] om Glucose Reference Range is dependent on time and content of last meal. Glucose of more than 200 mg/dL in a nonstressed, ambulatory subject supports the diagnosis of Diabetes Mellitus. Performed By: #### C BC, CMP, LDLD, FE and TIBC, LIPID, URMA #### [place] [address] [place] Carbon dioxide, total [Moles /volume] in Serum or PlasmaOrdered By: Ilene Lopez on 10-09-2023 CO2 [Moles/Vol] 22.6 mmol/L Normal 21.0-31.0 [facility] Comment on above: Performed By: #### C BC, CMP, LDLD, FE and TIBC, LIPID, URMA #### [facility] [address] [place] [address] [place] Chloride [Moles/volume] in S alissa or PlasmaOrdered By: Ilene Lopez on 10-09-2023 Chloride [Moles/Vol] 105 mmol/L Normal 98-107 [facility] Comment on above: Performed By: #### C BC, CMP, LDLD, FE and TIBC, LIPID, URMA #### [facility] [address] [place] [address] [place] Clostridioides difficile tox in B tcdB gene [Presence] in Stool by NAYELY with probe deteOrdered By: BONG Velez on 10-09-2023 C. difficile toxin B tcdB gene NAYELY+probe Ql (Stl) Positive Negative [facility] Comment on above: Results calledat 161 9 on 10/09/23 Testing performed by RT-PCR Clostridium Difficileon Clostridium Difficile Positive Normal Negative [facility] Comment on above: Order Comment: Reaso n for Exam Type 2 diabetes mellitus without complication, without long- Result Comment: Resu lts called at 1619 on 10/09/23 Testing performed by RT-PCR PERFORMED BY: [place] [address] PATHOLOGIST [employer]IDGE HUERTA M.D. Performed By: #### C BC, CMP, LDLD, FE and TIBC, LIPID, URMA #### [address] Complete Blood Count Auto Di ffon 10-09-2023 Mean Corpuscular HGB Conc 34.0 g/dL Normal 32.0-35.0 [facility] Comment on above: Performed By: #### C BC, CMP, LDLD, FE and TIBC, LIPID, URMA #### [address] NRBC% 0.1 /100{WBC} Normal 0-0.5 [facility] Comment on above: Performed By: #### C BC, CMP, LDLD, FE and TIBC, LIPID, URMA #### [address] Creatinine [Mass/volume] in Serum or PlasmaOrdered By: Ilene Lopez on 10-09-2023 Creatinine [Mass/Vol] 0.48 mg/dL Low 0.60-1.20 [facility] Comment on above: Performed By: #### C BC, CMP, LDLD, FE and TIBC, LIPID, URMA #### [address] Erythrocyte distribution wid th [Ratio] by Automated countOrdered By: Ilene Lopez on 10-09-2023 Erythrocyte distribution width (RBC) [Ratio] 13.2 % Normal 11.9-15.3 [facility] Comment on above: Performed By: #### C BC, CMP, LDLD, FE and TIBC, LIPID, URMA #### [facility] [address] Erythrocytes [#/volume] in B lood by Automated countOrdered By: Ilene Calderon on 10-09-2023 RBC (Bld) [#/Vol] 3.44 10*6/uL Low 3.60-5.00 [facility] Comment on above: Performed By: #### C BC, CMP, LDLD, FE and TIBC, LIPID, URMA #### [facility] [address] Glucose Poct Glucometerson 0 10-09-2023 Commemt1 Glu2: Cleaned Meter Normal [facility] Comment on above: Result Comment: PERF ORMED BY: [place] [address] PATHOLOGIST [employer] RIDGE HUERTA M.D. Performed By: #### C BC, CMP, LDLD, FE and TIBC, LIPID, URMA #### [address] Commemt1 Glu2: Cleaned Meter Normal [facility] Comment on above: Result Comment: PERF ORMED BY: [place] [address] PATHOLOGIST [employer] RIDGE HUERTA M.D. Performed By: #### C BC, CMP, LDLD, FE and TIBC, LIPID, URMA #### [address] Glucose [Mass/Vol] 188 mg/dL Normal [facility] Comment on above: Result Comment: [place] Glucose Reference Range is dependent on time and content of last meal. Glucose of more than 200 mg/dL in a nonstressed, ambulatory subject supports the diagnosis of Diabetes Mellitus. Performed By: #### C BC, CMP, LDLD, FE and TIBC, LIPID, URMA #### [facility] [address] Glucose [Mass/volume] in Ser um or PlasmaOrdered By: Ilene Lopez on 10-09-2023 Glucose [Mass/Vol] 143 mg/dL High 70-100 [facility] Comment on above: ADA recommended refe rence rangeRandom Glucose Reference Range is dependent on time and content of last meal. Glucose of more than 200 mg/dL in a nonstressed, ambulatory subject supports the diagnosis of Diabetes Mellitus. Result Comment: [place] om Glucose Reference Range is dependent on time and content of last meal. Glucose of more than 200 mg/dL in a nonstressed, ambulatory subject supports the diagnosis of Diabetes Mellitus. ADA recommended reference range Performed By: #### C BC, CMP, LDLD, FE and TIBC, LIPID, URMA #### [facility] [address] Hematocrit [Volume Fraction] of Blood by Automated countOrdered By: Ilene Lopez on 10-09-2023 Hematocrit (Bld) [Volume fraction] 30.3 % Low 34.0-46.4 [facility] Comment on above: Performed By: #### C BC, CMP, LDLD, FE and TIBC, LIPID, URMA #### [facility] [address] Hemoglobin [Mass/volume] in BloodOrdered By: Ilene Lopez on 10-09-2023 Hemoglobin (Bld) [Mass/Vol] 10.3 g/dL Low 11.8-15.4 [facility] Comment on above: Performed By: #### C BC, CMP, LDLD, FE and TIBC, LIPID, URMA #### [facility] [address] Leukocytes [#/volume] correc cherie for nucleated erythrocytes in Blood by Automated counOrdered By: Ilene Lopez on 10-09-2023 WBC corrected for nucl RBC Auto (Bld) [#/Vol] 13.6 10*3/uL 3.8-11.6 [facility] Leukocytes [#/volume] in Blo od by Automated countOrdered By: Ilene Calderon on 10-09-2023 WBC (Bld) [#/Vol] 13.6 10*3/uL High 3.8-11.6 [facility] Comment on above: Performed By: #### C BC, CMP, LDLD, FE and TIBC, LIPID, URMA #### [facility] [address] Lymphocytes [#/volume] in Bl ood by Automated countOrdered By: Ilene Calderon on 10-09-2023 Lymphocytes (Bld) [#/Vol] 2.2 10*3/uL Normal 1.00-4.8 [facility] Comment on above: Performed By: #### C BC, CMP, LDLD, FE and TIBC, LIPID, URMA #### [facility] [address] Lymphocytes/100 leukocytes i n Blood by Automated countOrdered By: Ilene Lopez on 10-09-2023 Lymphocytes/100 WBC (Bld) 16.5 % Normal . [facility] Comment on above: Performed By: #### C BC, CMP, LDLD, FE and TIBC, LIPID, URMA #### [facility] [address] MCH [Entitic mass] by Automa cherie countOrdered By: Ilene Lopez on 10-09-2023 MCH (RBC) [Entitic mass] 29.9 pg Normal 24.7-34.3 [facility] Comment on above: Performed By: #### C BC, CMP, LDLD, FE and TIBC, LIPID, URMA #### [facility] [address] MCHC Auto (RBC) [Mass/Vol]Or dered By: Ilene Lopez on 10-09-2023 MCHC (RBC) [Mass/Vol] 34.0 g/dL 32.0-35.0 [facility] MCV [Entitic volume] by Auto mated countOrdered By: Ilene Lopez on 10-09-2023 MCV (RBC) [Entitic vol] 88.1 fL Normal 80-100 [facility] Comment on above: Performed By: #### C BC, CMP, LDLD, FE and TIBC, LIPID, URMA #### [facility] [address] Neutrophils [#/volume] in Bl ood by Automated countOrdered By: Ilene Calderon on 10-09-2023 Neutrophils (Bld) [#/Vol] 9.6 10*3/uL High 1.8-7.7 [facility] Comment on above: Performed By: #### C BC, CMP, LDLD, FE and TIBC, LIPID, URMA #### [facility] [address] No Panel InformationOrdered By: Salazar Cabrera on 10-09-2023 Bedside Glucose Comment Glu2: cleaned meter [facility] No Panel InformationOrdered By: Ilene Lopez on 10-09-2023 Estimated GFR (CKD-EPI) > 60.0 mL/Min [facility] Creatinine Clearance (Chem 153.15 [facility] Nucleated erythrocytes [Pres ence] in Blood by Automated countOrdered By: Ilene Lopez on 10-09-2023 Nucleated RBC Auto Ql (Bld) 0.1 /100{WBC} 0-0.5 [facility] Platelet mean volume [Entiti c volume] in Blood by Automated countOrdered By: Ilene Lopez on 10-09-2023 Platelet mean volume (Bld) [Entitic vol] 7.9 fL Normal 6.3-10.7 [facility] Comment on above: Performed By: #### C BC, CMP, LDLD, FE and TIBC, LIPID, URMA #### [facility] [address] Platelets [#/volume] in Bloo d by Automated countOrdered By: Ilene Lopez on 10-09-2023 Platelets (Bld) [#/Vol] 242 10*3/uL Normal 150-450 [facility] Comment on above: Performed By: #### C BC, CMP, LDLD, FE and TIBC, LIPID, URMA #### [facility] [address] Potassium [Moles/volume] in Serum or PlasmaOrdered By: Ilene Lopez on 10-09-2023 Potassium [Moles/Vol] 3.4 mmol/L Low 3.5-5.1 [facility] Comment on above: Performed By: #### C BC, CMP, LDLD, FE and TIBC, LIPID, URMA #### [facility] [address] Serum or plasma anion gap de terminationOrdered By: Ilene Lopez on 10-09-2023 Anion gap [Moles/Vol] 11.8 mmol/L Normal 6.0-15.0 [facility] Comment on above: Performed By: #### C BC, CMP, LDLD, FE and TIBC, LIPID, URMA #### [address] Sodium [Moles/volume] in Ser um or PlasmaOrdered By: Ilene Lopez on 10-09-2023 Sodium [Moles/Vol] 136 mmol/L Normal 136-145 [facility] Comment on above: Performed By: #### C BC, CMP, LDLD, FE and TIBC, LIPID, URMA #### [address] Stool Cultureon 10-09-2023 Stool culture Comment c. diff Negative for Shiga Toxin 1 Negative for Shiga Toxin 2 A negative Shiga Toxin result may occur if the antigen level in the specimen is below the detection limit of the assay. Stool culture results No Salmonella, Shigella, Campy or E. coli 0157:H7 Isolated PERFORMED BY: [place] [address] PATHOLOGIST [employer] RIDGE HUERTA M.D. Normal [facility] Comment on above: Performed By: #### C BC, CMP, LDLD, FE and TIBC, LIPID, URMA #### [facility] [address] Stool bacteria identificatio n by cultureOrdered By: BONG Velez on 10-09-2023 Bacteria identified Cx Nom (Stl) [facility] Urea nitrogen [Mass/volume] in Serum or PlasmaOrdered By: Ilene Lopez on 10-09-2023 Urea nitrogen [Mass/Vol] 6 mg/dL Low 7-25 [facility] Comment on above: Performed By: #### C BC, CMP, LDLD, FE and TIBC, LIPID, URMA #### [facility] [address] [place] [address] [place] Alanine aminotransferase [En zymatic activity/volume] in Serum or PlasmaOrdered By: BONG Velez on 10-08-2023 ALT [Catalytic activity/Vol] 31 U/L Normal 7-52 [facility] Comment on above: Performed By: #### C BC, CMP, LDLD, FE and TIBC, LIPID, URMA #### [facility] [address] [place] [address] [place] Albumin [Mass/volume] in Ser um or Plasma by Bromocresol green (BCG) dye binding methoOrdered By: BONG Velez on 10-08-2023 Albumin BCG dye [Mass/Vol] 3.7 g/dL 3.5-5.7 [facility] Alkaline phosphatase [Enzyma tic activity/volume] in Serum or PlasmaOrdered By: BONG Velez on 10-08-2023 ALP [Catalytic activity/Vol] 61 U/L Normal 34-104 [facility] Comment on above: Performed By: #### C BC, CMP, LDLD, FE and TIBC, LIPID, URMA #### [facility] [address] [place] [address] [place] Aspartate aminotransferase [ Enzymatic activity/volume] in Serum or PlasmaOrdered By: BONG Velez on 10-08-2023 AST [Catalytic activity/Vol] 40 U/L High 13-39 [facility] Comment on above: Performed By: #### C BC, CMP, LDLD, FE and TIBC, LIPID, URMA #### [facility] [address] Automated erythrocytes count in urine sediment (number/area)Ordered By: BONG Velez on 10-08-2023 RBC Auto (Urine sed) [#/Area] 5-9 [HPF] 0-4 [facility] Automated leukocytes count i n urine sediment (number/area)Ordered By: BONG Velez on 10-08-2023 WBC Auto (Urine sed) [#/Area] 3-4 [HPF] 0-4 [facility] Automated urine color determ inationOrdered By: BONG Velez on 10-08-2023 Color (U) [place] Critically abnormal Yellow [facility] Comment on above: Order Comment: Name Collection Type:: Martinez Catheter Performed By: #### A DDONUAPLUS ####[facility] [address] Automated urine hyaline cast s count (number/volume)Ordered By: BONG Velez on 10-08-2023 Hyaline casts Auto (U) [#/Vol] None seen [LPF] 0-1 [facility] Bilirubin Test strip Ql (U)O rdered By: BONG Velez on 10-08-2023 Bilirubin Ql (U) 1+ Negative [facility] Bilirubin.total [Mass/volume ] in Serum or PlasmaOrdered By: BONG Velez on 10-08-2023 Bilirubin [Mass/Vol] 0.6 mg/dL Normal 0.3-1.0 [facility] Comment on above: Performed By: #### C BC, CMP, LDLD, FE and TIBC, LIPID, URMA #### [facility] [address] [place] [address] CT abdomen pelvis w conon CT abdomen pelvis w con [facility] Main [place] [address] [place] [address] CT Scan Report Signed Patient: Rachel Mcgarry MR#: [id number] 1 : 1980 Acct:[id number] Age/Sex: 43 / F ADM Date: 10/07/23 Loc: Room: 9H2980-7 Type: ADM IN Attending Dr: Beltran Velez MD Copies to: BONG Motley Ordering Provider: BONG Motley Date of Service: 10/08/23 CT/CT abdomen pelvis w con: Abdominal pain/distended abdomen CT abdomen and pelvis with contrast CLINICAL DATA: Abdominal pain, distention and vomiting. Recent hysterectomy. COMPARISON: 10/07/2023 from [facility]. No report is available at this time. [...] Eda Yañez M.D.10/08/2023 12:09 PM Dictation Location: [place] [address] Transcribed By: [facility] 10/08/23 1209 Dictated By: Eda Yañez MD 10/08/23 1142 Signed By: 10/08/23 1209 Normal [facility] Casts typing in urine sedime nt by light microscopyOrdered By: BONG Velez on 10-08-2023 Casts LM Nom (Urine sed) None seen [LPF] None Seen [facility] Complete Blood Count Auto Di ffon 10-08-2023 Basophils (Bld) [#/Vol] 0.1 10*3/uL Normal 0.0-0.2 [facility] Comment on above: Result Comment: PERF ORMED BY: [place] [address] PATHOLOGIST [employer] RIDGE HUERTA M.D. Performed By: #### C BC, CMP, LDLD, FE and TIBC, LIPID, URMA #### [address] Basophils/100 WBC (Bld) 0.5 % Normal . T gavin [facility] Comment on above: Performed By: #### C BC, CMP, LDLD, FE and TIBC, LIPID, URMA #### [address] Eosinophils (Bld) [#/Vol] 0.2 10*3/uL Normal 0.0-0.45 [facility] Comment on above: Performed By: #### C BC, CMP, LDLD, FE and TIBC, LIPID, URMA #### [address] Eosinophils/100 WBC (Bld) 1.3 % Normal . [facility] Comment on above: Performed By: #### C BC, CMP, LDLD, FE and TIBC, LIPID, URMA #### [address] Erythrocyte distribution width (RBC) [Ratio] 13.2 % Normal 11.9-15.3 [facility] Comment on above: Performed By: #### C BC, CMP, LDLD, FE and TIBC, LIPID, URMA #### [address] Hematocrit (Bld) [Volume fraction] 35.9 % Normal 34.0-46.4 [facility] Comment on above: Performed By: #### C BC, CMP, LDLD, FE and TIBC, LIPID, URMA #### [address] Hemoglobin (Bld) [Mass/Vol] 12.1 g/dL Normal 11.8-15.4 [facility] Comment on above: Performed By: #### C BC, CMP, LDLD, FE and TIBC, LIPID, URMA #### [address] Lymphocytes (Bld) [#/Vol] 3.0 10*3/uL Normal 1.00-4.8 [facility] Comment on above: Performed By: #### C BC, CMP, LDLD, FE and TIBC, LIPID, URMA #### [address] Lymphocytes/100 WBC (Bld) 16.8 % Normal . [facility] Comment on above: Performed By: #### C BC, CMP, LDLD, FE and TIBC, LIPID, URMA #### [address] MCH (RBC) [Entitic mass] 29.7 pg Normal 24.7-34.3 [facility] Comment on above: Performed By: #### C BC, CMP, LDLD, FE and TIBC, LIPID, URMA #### [address] MCV (RBC) [Entitic vol] 88.3 fL Normal 80-100 [facility] Comment on above: Performed By: #### C BC, CMP, LDLD, FE and TIBC, LIPID, URMA #### [address] Mean Corpuscular HGB Conc 33.6 g/dL Normal 32.0-35.0 [facility] Comment on above: Performed By: #### C BC, CMP, LDLD, FE and TIBC, LIPID, URMA #### [address] Monocytes (Bld) [#/Vol] 1.5 10*3/uL High 0.0-0.8 [facility] Comment on above: Performed By: #### C BC, CMP, LDLD, FE and TIBC, LIPID, URMA #### [address] Monocytes/100 WBC (Bld) 8.4 % Normal . T gavin [facility] Comment on above: Performed By: #### C BC, CMP, LDLD, FE and TIBC, LIPID, URMA #### [address] Neutrophils (Bld) [#/Vol] 12.9 10*3/uL High 1.8-7.7 [facility] Comment on above: Performed By: #### C BC, CMP, LDLD, FE and TIBC, LIPID, URMA #### [address] Neutrophils/100 WBC (Bld) 73.0 % Normal . [facility] Comment on above: Performed By: #### C BC, CMP, LDLD, FE and TIBC, LIPID, URMA #### [address] NRBC% 0.1 /100{WBC} Normal 0-0.5 [facility] Comment on above: Performed By: #### C BC, CMP, LDLD, FE and TIBC, LIPID, URMA #### [address] Platelet mean volume (Bld) [Entitic vol] 7.9 fL Normal 6.3-10.7 [facility] Comment on above: Performed By: #### C BC, CMP, LDLD, FE and TIBC, LIPID, URMA #### [address] Platelets (Bld) [#/Vol] 274 10*3/uL Normal 150-450 [facility] Comment on above: Performed By: #### C BC, CMP, LDLD, FE and TIBC, LIPID, URMA #### [address] RBC (Bld) [#/Vol] 4.06 10*6/uL Normal 3.60-5.00 [facility] Comment on above: Performed By: #### C BC, CMP, LDLD, FE and TIBC, LIPID, URMA #### [address] WBC (Bld) [#/Vol] 17.6 10*3/uL High 3.8-11.6 [facility] Comment on above: Performed By: #### C BC, CMP, LDLD, FE and TIBC, LIPID, URMA #### [address] Comprehensive Metabolic Pane mark 10-08-2023 Albumin [Mass/Vol] 3.7 g/dL Normal 3.5-5.7 [facility] Comment on above: Performed By: #### C BC, CMP, LDLD, FE and TIBC, LIPID, URMA #### [address] Anion gap [Moles/Vol] 14.8 mmol/L Normal 6.0-15.0 [facility] Comment on above: Performed By: #### C BC, CMP, LDLD, FE and TIBC, LIPID, URMA #### [address] Calcium [Mass/Vol] 7.8 mg/dL Low 8.6-10.3 [facility] Comment on above: Performed By: #### C BC, CMP, LDLD, FE and TIBC, LIPID, URMA #### [place] [address] [place] Chloride [Moles/Vol] 104 mmol/L Normal 98-107 [facility] Comment on above: Performed By: #### C BC, CMP, LDLD, FE and TIBC, LIPID, URMA #### [facility] [address] CO2 [Moles/Vol] 20.2 mmol/L Low 21.0-31.0 [facility] Comment on above: Performed By: #### C BC, CMP, LDLD, FE and TIBC, LIPID, URMA #### [facility] [address] Creatinine [Mass/Vol] 0.58 mg/dL Low 0.60-1.20 [facility] Comment on above: Performed By: #### C BC, CMP, LDLD, FE and TIBC, LIPID, URMA #### [facility] [address] Creatinine Clr Calc Pharmacy 126.74 Normal [facility] Comment on above: Result Comment: PERF ORMED BY: [place] [address] PATHOLOGIST [employer] RIDGE HUERTA M.D. Performed By: #### C BC, CMP, LDLD, FE and TIBC, LIPID, URMA #### [address] GFR/1.73 sq M.predicted MDRD (S/P/Bld) [Vol rate/Area] mL/min/{1.73_m2} Normal [facility] Comment on above: Performed By: #### C BC, CMP, LDLD, FE and TIBC, LIPID, URMA #### [facility] [address] Glucose [Mass/Vol] 155 mg/dL High 70-100 [facility] Comment on above: Result Comment: [place] Glucose Reference Range is dependent on time and content of last meal. Glucose of more than 200 mg/dL in a nonstressed, ambulatory subject supports the diagnosis of Diabetes Mellitus. ADA recommended reference range Performed By: #### C BC, CMP, LDLD, FE and TIBC, LIPID, URMA #### [address] Potassium [Moles/Vol] 4.0 mmol/L Normal 3.5-5.1 [facility] Comment on above: Performed By: #### C BC, CMP, LDLD, FE and TIBC, LIPID, URMA #### [address] Sodium [Moles/Vol] 135 mmol/L Low 136-145 [facility] Comment on above: Performed By: #### C BC, CMP, LDLD, FE and TIBC, LIPID, URMA #### [address] Urea nitrogen [Mass/Vol] 10 mg/dL Normal 7-25 [facility] Comment on above: Performed By: #### C BC, CMP, LDLD, FE and TIBC, LIPID, URMA #### [address] Albumin [Mass/Vol] 3.7 g/dL Normal 3.5-5.7 [facility] Comment on above: Performed By: #### C MP, LACTIC ####[address] Albumin/Globulin [Mass ratio] 1.5 {ratio} Normal [facility] Comment on above: Performed By: #### C MP, LACTIC ####[address] ALP [Catalytic activity/Vol] 62 U/L Normal 34-104 [facility] Comment on above: Performed By: #### C MP, LACTIC ####[address] ALT [Catalytic activity/Vol] 34 U/L Normal 7-52 [facility] Comment on above: Performed By: #### C MP, LACTIC ####[address] Anion gap [Moles/Vol] 14.3 mmol/L Normal 6.0-15.0 [facility] Comment on above: Performed By: #### C MP, LACTIC ####[address] AST [Catalytic activity/Vol] 74 U/L High 13-39 [facility] Comment on above: Performed By: #### C MP, LACTIC ####[place] [address] [address] Bilirubin [Mass/Vol] 0.5 mg/dL Normal 0.3-1.0 [facility] Comment on above: Performed By: #### C MP, LACTIC ####[address] Calcium [Mass/Vol] 7.9 mg/dL Low 8.6-10.3 [facility] Comment on above: Performed By: #### C MP, LACTIC ####[address] Chloride [Moles/Vol] 102 mmol/L Normal 98-107 [facility] Comment on above: Performed By: #### C MP, LACTIC ####[address] CO2 [Moles/Vol] 21.0 mmol/L Normal 21.0-31.0 [facility] Comment on above: Performed By: #### C MP, LACTIC ####[address] Creatinine [Mass/Vol] 0.56 mg/dL Low 0.60-1.20 [facility] Comment on above: Performed By: #### C MP, LACTIC ####[address] Creatinine Clr Calc Pharmacy 131.27 Normal [facility] Comment on above: Result Comment: PERF ORMED BY: [facility] [address] [address] PATHOLOGIST [employer] RIDGE HUERTA M.D. Performed By: #### C MP, LACTIC ####[address] GFR/1.73 sq M.predicted MDRD (S/P/Bld) [Vol rate/Area] mL/min/{1.73_m2} Normal [facility] Comment on above: Performed By: #### C MP, LACTIC ####[place] [address] Globulin (S) [Mass/Vol] 2.4 g/dL Normal T he [facility] Comment on above: Performed By: #### C MP, LACTIC ####[address] Glucose [Mass/Vol] 208 mg/dL High 70-100 [facility] Comment on above: Result Comment: [facility] Glucose Reference Range is dependent on time and content of last meal. Glucose of more than 200 mg/dL in a nonstressed, ambulatory subject supports the diagnosis of Diabetes Mellitus. ADA recommended reference range Performed By: #### C MP, LACTIC ####[address] Potassium [Moles/Vol] 4.3 mmol/L Normal 3.5-5.1 [facility] Comment on above: Performed By: #### C MP, LACTIC ####[address] Protein [Mass/Vol] 6.1 g/dL Low 6.4-8.9 [facility] Comment on above: Performed By: #### C MP, LACTIC ####[address] Sodium [Moles/Vol] 133 mmol/L Low 136-145 [facility] Comment on above: Performed By: #### C MP, LACTIC ####[place] [id number] [facility] Urea nitrogen [Mass/Vol] 9 mg/dL Normal 7-25 [facility] Comment on above: Performed By: #### C MP, LACTIC ####[place] [id number] [facility] Dipstick and Microscopicon 0 10-08-2023 Appearance (U) [place] Critically abnormal Clear [facility] Comment on above: Order Comment: Name Collection Type:: Martinez Catheter Performed By: #### A DDONUAPLUS ####[place] [id number] [facility] Bacteria,Urine None Seen Normal None Seen [facility] Comment on above: Order Comment: Name Collection Type:: Martinez Catheter Performed By: #### A DDONUAPLUS ####[place] [id number] [facility] Bilirubin,Urine 1+ High Negative [facility] Comment on above: Order Comment: Name Collection Type:: Martinez Catheter Performed By: #### A DDONUAPLUS ####[place] [id number] [facility] Glucose Ql (U) 250 mg/dL High Normal [facility] Comment on above: Order Comment: Name Collection Type:: Martinez Catheter Performed By: #### A DDONUAPLUS ####[place] [id number] [facility] Hyaline Casts,Urine None Seen Normal 0-1 [facility] Comment on above: Order Comment: Name Collection Type:: Martinez Catheter Performed By: #### A DDONUAPLUS ####[place] [id number] [facility] Ketones Ql (U) Trace High Negative [facility] Comment on above: Order Comment: Name Collection Type:: Martinez Catheter Performed By: #### A DDONUAPLUS ####[place] [id number] [facility] Leukocyte esterase Test strip Ql (U) Negative Normal Negative [facility] Comment on above: Order Comment: Name Collection Type:: Martinez Catheter Performed By: #### A DDONUAPLUS ####[place] [id number] [facility] Nitrite,Urine Negative Normal Negative [facility] Comment on above: Order Comment: Name Collection Type:: Martinez Catheter Performed By: #### A DDONUAPLUS ####[place] [id number] [facility] Occult Blood,Urine Negative Normal Negative [facility] Comment on above: Order Comment: Name Collection Type:: Martinez Catheter Result Comment: PERF ORMED BY: [address] [place] [address] PATHOLOGIST [employer] RIDGE HUERTA M.D. Performed By: #### A DDONUAPLUS ####[address] [address] [facility] Other Casts,Urine None Seen Normal None Seen [facility] Comment on above: Order Comment: Name Collection Type:: Martinez Catheter Result Comment: PERF ORMED BY: [address] [place] [address] PATHOLOGIST [employer] RIDGE HUERTA M.D. Performed By: #### A DDONUAPLUS ####[address] [address] [facility] RBC,Urine 5-9 High 0-4 [facility] Comment on above: Order Comment: Name Collection Type:: Martinez Catheter Performed By: #### A DDONUAPLUS ####[address] [address] [facility] Specificy [place],Urine > 1.050 High 1.00 1-1.03 0 [facility] Comment on above: Order Comment: Name Collection Type:: Martinez Catheter Performed By: #### A DDONUAPLUS ####[address] [address] [facility] [place] Epithelial Cell,Urine 5-9 High 0-2 [facility] Comment on above: Order Comment: Name Collection Type:: Martinez Catheter Performed By: #### A DDONUAPLUS ####[address] [address] [facility] Urobilinogen,Urine Normal Normal Normal [facility] Comment on above: Order Comment: Name Collection Type:: Martinez Catheter Performed By: #### A DDONUAPLUS ####[address] [address] [place] WBC,Urine 3-4 Normal 0-4 [facility] Comment on above: Order Comment: Name Collection Type:: Martinez Catheter Performed By: #### A DDONUAPLUS ####[facility] Exs[address] Glucose Poct Glucometerson 0 10-08-2023 Glucose [Mass/Vol] 194 mg/dL Normal [facility] Comment on above: Result Comment: [place] om Glucose Reference Range is dependent on time and content of last meal. Glucose of more than 200 mg/dL in a nonstressed, ambulatory subject supports the diagnosis of Diabetes Mellitus. PERFORMED BY: [place] [address] PATHOLOGIST [employer] RIDGE HUERTA M.D. Performed By: #### G LULS ####Point of Care testing, Commemt1 Glu2: Cleaned Meter Normal [facility] Comment on above: Result Comment: PERF ORMED BY: [place] [address] PATHOLOGIST [employer] RIDGE HUERTA M.D. Performed By: #### G LULS ####Point of Care testing, Glucose [Mass/Vol] 265 mg/dL Normal [facility] Comment on above: Result Comment: [place] om Glucose Reference Range is dependent on time and content of last meal. Glucose of more than 200 mg/dL in a nonstressed, ambulatory subject supports the diagnosis of Diabetes Mellitus. Performed By: #### G LULS ####Point of Care testing, Commemt1 Glu2: Cleaned Meter Normal [facility] Comment on above: Result Comment: PERF ORMED BY: [place] [address] PATHOLOGIST [employer]SEM[employer] RIDGE HUERTA M.D. Performed By: #### C BC, CMP, LDLD, FE and TIBC, LIPID, URMA #### [facility] [address] Glucose [Mass/Vol] 166 mg/dL Normal [facility] Comment on above: Result Comment: [place] om Glucose Reference Range is dependent on time and content of last meal. Glucose of more than 200 mg/dL in a nonstressed, ambulatory subject supports the diagnosis of Diabetes Mellitus. Performed By: #### C BC, CMP, LDLD, FE and TIBC, LIPID, URMA #### [facility] [address] Glucose [Mass/Vol] 168 mg/dL Normal [facility] Comment on above: Result Comment: [facility] Glucose Reference Range is dependent on time and content of last meal. Glucose of more than 200 mg/dL in a nonstressed, ambulatory subject supports the diagnosis of Diabetes Mellitus. PERFORMED BY: [facility] [address] [place] [address] PATHOLOGIST [employer] RIDGE HUERTA M.D. Performed By: #### C BC, CMP, LDLD, FE and TIBC, LIPID, URMA #### [facility] [address] [place] [id number] [facility] Ketones Auto test strip (U) [Mass/Vol]Ordered By: BONG Velez on 10-08-2023 Ketones (U) [Mass/Vol] Trace Negative [facility] Lactate [Moles/volume] in Se rum or PlasmaOrdered By: BONG Velez on 10-08-2023 Lactate [Moles/Vol] 1.9 mmol/L 0.5-2.2 [facility] Lactic Acidon 10-08-2023 Lactate [Moles/Vol] 2.0 mmol/L Off scale high 0.5-2.2 [facility] Comment on above: Result Comment: Crit ical Result : Called to and read back by: BERT JAEGER/Bon at: 10/08/2023 07:31:51 by:[id number] PERFORMED BY: [place] [address] PATHOLOGIST [employer] RIDGE HUERTA M.D. Performed By: #### L ACTIC ####[facility] [place] [id number] [facility] Lactate [Moles/Vol] 2.6 mmol/L Off scale high 0.5-2.2 [facility] Comment on above: Result Comment: Crit ical Result : Called to and read back by: CLARISSA PATEL at: 10/08/2023 00:48:06 by:HENRY PERFORMED BY: [place] [address] PATHOLOGIST [employer] RIDGE HUERTA M.D. Performed By: #### C MP, LACTIC ####[address] Lactic Acid Reflexon 024 Lactic Acid Reflex 1.9 mmol/L Normal 0.5-2.2 [facility] Comment on above: Result Comment: PERF ORMED BY: [place] [address] PATHOLOGIST [employer] RIDGE HUERTA M.D. Performed By: #### L ACTIC RFX ####[address] Nitrite Test strip Ql (U)Ord ered By: BONG Velez on 10-08-2023 Nitrite Ql (U) Negative Negative [facility] Protein [Mass/volume] in Ser um or PlasmaOrdered By: BONG Velez on 10-08-2023 Protein [Mass/Vol] 6.3 g/dL Low 6.4-8.9 [facility] Comment on above: Performed By: #### C BC, CMP, LDLD, FE and TIBC, LIPID, URMA #### [address] Serum globulin measurement b y calculation (mass/volume)Ordered By: BONG Velez on 10-08-2023 Globulin (S) [Mass/Vol] 2.6 g/dL Normal [facility] Comment on above: Performed By: #### C BC, CMP, LDLD, FE and TIBC, LIPID, URMA #### [address] Serum or plasma albumin/glob ulin mass ratioOrdered By: BONG Velez on 10-08-2023 Albumin/Globulin [Mass ratio] 1.4 {ratio} Normal [facility] Comment on above: Performed By: #### C BC, CMP, LDLD, FE and TIBC, LIPID, URMA #### [facility] [address] Specific gravity Auto test s trip (U) [Rel density]Ordered By: BONG Velez on 10-08-2023 Specific gravity (U) [Rel density] > 1.050 1.001-1.03 0 [facility] Squamous epithelial cells de tection in urine sediment by light microscopyOrdered By: BONG Velez on 10-08-2023 Epithelial cells.squamous LM Ql (Urine sed) 5-9 [HPF] 0-2 [facility] Urine bacteria detection by automated methodOrdered By: BONG Velez on 10-08-2023 Bacteria Auto Ql (U) None seen None Seen [facility] Urine clarity by refractomet ry automatedOrdered By: BONG Velez on 10-08-2023 Clarity Refractometry automated (U) Turbid Clear [facility] Urine glucose measurement by automated test strip (mass/volume)Ordered By: ARIELLE Velez on 10-08-2023 Glucose Auto test strip (U) [Mass/Vol] 250 mg/dL Normal [facility] Urine hemoglobin detection b y automated test stripOrdered By: BONG Velez on 10-08-2023 Hemoglobin Auto test strip Ql (U) Negative Negative [facility] Urine leukocyte esterase det ection by automated test stripOrdered By: BONG Velez on 10-08-2023 Leukocyte esterase Auto test strip Ql (U) Negative Negative [facility] Urine pH measurement by auto mated test stripOrdered By: BONG Velez on 10-08-2023 pH (U) 5.5 [pH] Normal 5.0-9.0 [facility] Comment on above: Order Comment: Name Collection Type:: Martinez Catheter Performed By: #### A DDONUAPLUS ####[facility] Ted[address] Urine protein measurement by automated test strip (mass/volume)Ordered By: ARIELLE Velez on 10-08-2023 Protein (U) [Mass/Vol] 30 mg/dL High Negative Fi [facility] Comment on above: Order Comment: Name Collection Type:: Martinez Catheter Performed By: #### A DDONUAPLUS ####[facility] Ilt[address] Urobilinogen Auto test strip (U) [Mass/Vol]Ordered By: BONG Velez on 10-08-2023 Urobilinogen (U) [Mass/Vol] Normal mg/dL Normal [facility] Capillary blood glucose ashwini urement by glucometer (mass/volume)Ordered By: Carri Manuel on 09-28-2023 Glucose [Mass/Vol] 196 mg/dL Normal [facility] Comment on above: Random Glucose Refer ence Range is dependent on time and content of last meal. Glucose of more than 200 mg/dL in a nonstressed, ambulatory subject supports the diagnosis of Diabetes Mellitus. Result Comment: [place] Glucose Reference Range is dependent on time and content of last meal. Glucose of more than 200 mg/dL in a nonstressed, ambulatory subject supports the diagnosis of Diabetes Mellitus. PERFORMED BY: [place] [address] PATHOLOGIST [employer] RIDGE HUERTA M.D. Performed By: #### G EDUARDO ####Point of Care testing, Glucose Poct Glucometerson 1 11-29-2022 Commemt1 Glu2: Cleaned Meter Normal [facility] Comment on above: Result Comment: PERF ORMED BY: [place] [address] PATHOLOGIST E[employer] RIDGE HUERTA M.D. Performed By: #### C BC, CMP, LDLD, FE and TIBC, LIPID, URMA #### [facility] [address] Glucose [Mass/Vol] 153 mg/dL Normal [facility] Comment on above: Result Comment: [place] om Glucose Reference Range is dependent on time and content of last meal. Glucose of more than 200 mg/dL in a nonstressed, ambulatory subject supports the diagnosis of Diabetes Mellitus. Performed By: #### C BC, CMP, LDLD, FE and TIBC, LIPID, URMA #### [facility] [address] [place] [address] HCG ( test) Funmi jackson Ql (U)Ordered By: Edna Álvarez on 09-28-2023 HCG ( test) Ql (U) Negative [facility] HCG,Urineon 09-28-2023 Beta HCG ( test) Ql (U) Negative Normal [facility] Comment on above: Result Comment: PERF ORMED BY: [address] [place] [address] PATHOLOGIST [employer] RIDGE HUERTA M.D. Performed By: #### U HCG #### [facility] [address] [place] [address] Mark 09-28-2023 L ------- Specimen: [id number] Received: 09/28/23 Status: BLUE Britoeduarda Num: [id number] Spec Type: Surgical Subm Dr: Carri Manuel DO Tissues: A Uterus w/ or w/o tubes ovaries except neoplastic or prolap (CERVIX, MIGUELINA TU Procedures: , Gross/Micro L5 Age/ Patient Sex Location Account Attending Physician Rachel Mcgarry 43/F [place] [id number] Carri Manuel, DO SPEC NUM: [id number] RECD: 09/28/23 STATUS: BLUE NEAL NUM: [id number] JOSEPH: 09/28/[address] [facility] [address]: Carri Manuel DO ENTERED: 09/28/[address] [facility] [address]: HALLEY TYPE: Surgical DEPT: S ORDERED: HE/12, Gross/Micro L5 ORDERED: HE/, Gross/Micro L5 Pathological Diagnosis Uterus, Cervix and [...] endometrium averages 0.3 cm in thickness. The pink-sarabai, trabecular myometrium measures up to 2.0 cm in thickness. No myometrial lesions are identified. The right purple-chu fimbriated fallopian tube measures 6.5 x 0.5 cm and has attached paratubal cyst measuring up to 0.3 cm. Sectioning reveals a pinpoint lumen. The left fimbriated fallopian tube measures 5.2 x 1.0 x 0.5 cm and has an unremarkable, pinpoint lumen on cut section. Supervisor Bindery sections are submitted in 6 cassettes as follows: A1 - Anterior cervix A2 - Posterior cervix A3 - Anterior endomyometrium Specimen: [id number] Received: 09/28/23 Status: BLUE Neal Num: [id number] Spec Type: Surgical Subm Dr: Carri Manuel, Tissues: A Uterus w/ or w/o tubes ovaries except neoplastic or prolap (CERVIX, MIGUELINA TU Procedures: , Gross/Micro L5 Patient: Rachel Mcgarry [id number] (Continued) Specimen: [id number] Received: 09/28/23 (Continued) Gross Description (Continued) Signed (signature on file) Nikkie Munguia MD 09/29/23 2213 Specimen: [id number] Received: 09/28/23 Status: BLUE Neal Num: [id number] Spec Type: Surgical Subm Dr: Carri Manuel DO Tissues: A Uterus w/ or w/o tubes ovaries except neoplastic or prolap (CERVIX, MIGUELINA TU Procedures: , Gross/Micro L5 Patient: Rachel Mcgarry [id number] (Continued) Specimen: [id number] Received: 09/28/23 (Continued) Gross Description (Continued) A4 - Posterior endomyometrium A5 - Right fallopian tube A6 - Left fallopian tube Microscopic Description Six H E slides reviewed. The microscopic examination confirms the diagnosis. CPT Codes 18858 Specimen: [id number] Received: 09/28/23 Status: BLUE Neal Num: [id number] Spec Type: Surgical Subm Dr: Carri Manuel DO Tissues: A Uterus w/ or w/o tubes ovaries except neoplastic or prolap (CERVIX, MIGUELINA TU Procedures: , Gross/Micro L5 Patient: Rachel Mcgarry [id number] (Continued) Signed (signature on file) Nikkie Munguia MD 09/29/232212 Normal [facility] No Panel InformationOrdered By: Carri Manuel on 09-28-2023 Bedside Glucose Comment Glu2: cleaned meter [facility] Automated basophil %Ordered By: Carri Manuel on 09-16-2023 Basophils/100 WBC (Bld) 0.6 % Normal . [facility] Comment on above: Performed By: #### C BC, CMP, LDLD, FE and TIBC, LIPID, URMA #### [address] Automated basophil countOrde red By: Carri Springcatrina on 09-16-2023 Basophils (Bld) [#/Vol] 0.1 10*3/uL Normal 0.0-0.2 [facility] Comment on above: Result Comment: PERF ORMED BY: [place] [address] PATHOLOGIST E[employer] RIDGE HUERTA M.D. Performed By: #### C BC, CMP, LDLD, FE and TIBC, LIPID, URMA #### [address] Automated blood monocyte cou ntOrdered By: Carri Manuel on 09-16-2023 Monocytes (Bld) [#/Vol] 0.9 10*3/uL High 0.0-0.8 [facility] Comment on above: Performed By: #### C BC, CMP, LDLD, FE and TIBC, LIPID, URMA #### [address] Automated eosinophil %Ordere d By: Carri Manuel on 09-16-2023 Eosinophils/100 WBC (Bld) 0.5 % Normal . [facility] Comment on above: Performed By: #### C BC, CMP, LDLD, FE and TIBC, LIPID, URMA #### [address] Automated eosinophil countOr dered By: Carri Manuel on 09-16-2023 Eosinophils (Bld) [#/Vol] 0.1 10*3/uL Normal 0.0-0.45 [facility] Comment on above: Performed By: #### C BC, CMP, LDLD, FE and TIBC, LIPID, URMA #### [address] Automated monocyte %Ordered By: Carri Manuel on 09-16-2023 Monocytes/100 WBC (Bld) 7.5 % Normal . [facility] Comment on above: Performed By: #### C BC, CMP, LDLD, FE and TIBC, LIPID, URMA #### [address] Automated neutrophil %Ordere d By: Carri Manuel on 09-16-2023 Neutrophils/100 WBC (Bld) 66.5 % Normal . [facility] Comment on above: Performed By: #### C BC, CMP, LDLD, FE and TIBC, LIPID, URMA #### [address] Basic Metabolic Panelon 09-03 GFR/1.73 sq M.predicted MDRD (S/P/Bld) [Vol rate/Area] mL/min/{1.73_m2} Normal [facility] Comment on above: Performed By: #### C BC, CMP, LDLD, FE and TIBC, LIPID, URMA #### [address] Calcium [Mass/volume] in Ser um or PlasmaOrdered By: Carri Manuel on 09-16-2023 Calcium [Mass/Vol] 9.3 mg/dL Normal 8.6-10.3 [facility] Comment on above: Result Comment: PERF ORMED BY: [place] [address] PATHOLOGIST E[employer] RIDGE HUERTA M.D. Performed By: #### C BC, CMP, LDLD, FE and TIBC, LIPID, URMA #### [address] Carbon dioxide, total [Moles /volume] in Serum or PlasmaOrdered By: Carri Manuel on 09-16-2023 CO2 [Moles/Vol] 25.5 mmol/L Normal 21.0-31.0 [facility] Comment on above: Performed By: #### C BC, CMP, LDLD, FE and TIBC, LIPID, URMA #### [place] [address] [place] Chloride [Moles/volume] in S alissa or PlasmaOrdered By: Carri Manuel on 09-16-2023 Chloride [Moles/Vol] 99 mmol/L Normal 98-107 [facility] Comment on above: Performed By: #### C BC, CMP, LDLD, FE and TIBC, LIPID, URMA #### [address] Complete Blood Count Auto Di ffon 09-16-2023 Mean Corpuscular HGB Conc 33.5 g/dL Normal 32.0-35.0 [facility] Comment on above: Performed By: #### C BC, CMP, LDLD, FE and TIBC, LIPID, URMA #### [facility] [address] NRBC% 0.1 /100{WBC} Normal 0-0.5 [facility] Comment on above: Performed By: #### C BC, CMP, LDLD, FE and TIBC, LIPID, URMA #### [address] Creatinine [Mass/volume] in Serum or PlasmaOrdered By: Carri Manuel on 09-16-2023 Creatinine [Mass/Vol] 0.68 mg/dL Normal 0.60-1.20 [facility] Comment on above: Performed By: #### C BC, CMP, LDLD, FE and TIBC, LIPID, URMA #### [address] Erythrocyte distribution wid th [Ratio] by Automated countOrdered By: Carri Manuel on 09-16-2023 Erythrocyte distribution width (RBC) [Ratio] 13.3 % Normal 11.9-15.3 [facility] Comment on above: Performed By: #### C BC, CMP, LDLD, FE and TIBC, LIPID, URMA #### [address] Erythrocytes [#/volume] in B lood by Automated countOrdered By: Carri Manuel on 09-16-2023 RBC (Bld) [#/Vol] 4.31 10*6/uL Normal 3.60-5.00 [facility] Comment on above: Performed By: #### C BC, CMP, LDLD, FE and TIBC, LIPID, URMA #### [facility] [address] Glucose [Mass/volume] in Ser um or PlasmaOrdered By: aCrri Manuel on 09-16-2023 Glucose [Mass/Vol] 355 mg/dL High 70-100 [facility] Comment on above: ADA recommended refe rence rangeRandom Glucose Reference Range is dependent on time and content of last meal. Glucose of more than 200 mg/dL in a nonstressed, ambulatory subject supports the diagnosis of Diabetes Mellitus. Result Comment: [place] om Glucose Reference Range is dependent on time and content of last meal. Glucose of more than 200 mg/dL in a nonstressed, ambulatory subject supports the diagnosis of Diabetes Mellitus. ADA recommended reference range Performed By: #### C BC, CMP, LDLD, FE and TIBC, LIPID, URMA #### [facility] [address] Hematocrit [Volume Fraction] of Blood by Automated countOrdered By: Carri Manuel on 09-16-2023 Hematocrit (Bld) [Volume fraction] 38.3 % Normal 34.0-46.4 [facility] Comment on above: Performed By: #### C BC, CMP, LDLD, FE and TIBC, LIPID, URMA #### [facility] [address] Hemoglobin [Mass/volume] in BloodOrdered By: Carri Manuel on 09-16-2023 Hemoglobin (Bld) [Mass/Vol] 12.8 g/dL Normal 11.8-15.4 [facility] Comment on above: Performed By: #### C BC, CMP, LDLD, FE and TIBC, LIPID, URMA #### [facility] [address] Leukocytes [#/volume] correc cherie for nucleated erythrocytes in Blood by Automated counOrdered By: Carri Manuel on 09-16-2023 WBC corrected for nucl RBC Auto (Bld) [#/Vol] 12.5 10*3/uL 3.8-11.6 [facility] Leukocytes [#/volume] in Blo od by Automated countOrdered By: Carri Manuel on 09-16-2023 WBC (Bld) [#/Vol] 12.5 10*3/uL High 3.8-11.6 [facility] Comment on above: Performed By: #### C BC, CMP, LDLD, FE and TIBC, LIPID, URMA #### [facility] [address] Lymphocytes [#/volume] in Bl ood by Automated countOrdered By: Carri Manuel on 09-16-2023 Lymphocytes (Bld) [#/Vol] 3.1 10*3/uL Normal 1.00-4.8 [facility] Comment on above: Performed By: #### C BC, CMP, LDLD, FE and TIBC, LIPID, URMA #### [facility] [address] Lymphocytes/100 leukocytes i n Blood by Automated countOrdered By: Carri Manuel on 09-16-2023 Lymphocytes/100 WBC (Bld) 24.9 % Normal . [facility] Comment on above: Performed By: #### C BC, CMP, LDLD, FE and TIBC, LIPID, URMA #### [facility] [address] [place] [address] MCH [Entitic mass] by Automa cherie countOrdered By: Carri Manuel on 09-16-2023 MCH (RBC) [Entitic mass] 29.7 pg Normal 24.7-34.3 [facility] Comment on above: Performed By: #### C BC, CMP, LDLD, FE and TIBC, LIPID, URMA #### [facility] [address] MCHC Auto (RBC) [Mass/Vol]Or dered By: Carri Manuel on 09-16-2023 MCHC (RBC) [Mass/Vol] 33.5 g/dL 32.0-35.0 [facility] MCV [Entitic volume] by Auto mated countOrdered By: Carri Manuel on 09-16-2023 MCV (RBC) [Entitic vol] 88.8 fL Normal 80-100 [facility] Comment on above: Performed By: #### C BC, CMP, LDLD, FE and TIBC, LIPID, URMA #### [facility] [address] [place] [address] [place] Neutrophils [#/volume] in Bl ood by Automated countOrdered By: Carri Manuel on 09-16-2023 Neutrophils (Bld) [#/Vol] 8.3 10*3/uL High 1.8-7.7 [facility] Comment on above: Performed By: #### C BC, CMP, LDLD, FE and TIBC, LIPID, URMA #### [facility] [address] No Panel InformationOrdered By: Carri Manuel on 09-16-2023 Estimated GFR (CKD-EPI) > 60.0 mL/Min [facility] Creatinine Clearance (Chem N/A [facility] Nucleated erythrocytes [Pres ence] in Blood by Automated countOrdered By: Carri Manuel on 09-16-2023 Nucleated RBC Auto Ql (Bld) 0.1 /100{WBC} 0-0.5 [facility] PST Type and Screenon 2022 ABO and Rh group Nom (Bld) Blood group A Rh(D) positive Normal [facility] Comment on above: Order Comment: Reaso n for Exam Type 2 diabetes mellitus without complication, without long- Result Comment: PERF ORMED BY: [place] [address] PATHOLOGIST [employer] RIDGE HUERTA M.D. Platelet mean volume [Entiti c volume] in Blood by Automated countOrdered By: Carri Manuel on 09-16-2023 Platelet mean volume (Bld) [Entitic vol] 8.2 fL Normal 6.3-10.7 [facility] Comment on above: Performed By: #### C BC, CMP, LDLD, FE and TIBC, LIPID, URMA #### [facility] [address] [place] [address] [place] Platelets [#/volume] in Bloo d by Automated countOrdered By: Carri Manuel on 09-16-2023 Platelets (Bld) [#/Vol] 305 10*3/uL Normal 150-450 [facility] Comment on above: Performed By: #### C BC, CMP, LDLD, FE and TIBC, LIPID, URMA #### [facility] [address] Potassium [Moles/volume] in Serum or PlasmaOrdered By: Carri Manuel on 09-16-2023 Potassium [Moles/Vol] 5.0 mmol/L Normal 3.5-5.1 [facility] Comment on above: Performed By: #### C BC, CMP, LDLD, FE and TIBC, LIPID, URMA #### [facility] [address] Serum or plasma anion gap de terminationOrdered By: Carri Manuel on 09-16-2023 Anion gap [Moles/Vol] 14.5 mmol/L Normal 6.0-15.0 [facility] Comment on above: Performed By: #### C BC, CMP, LDLD, FE and TIBC, LIPID, URMA #### [facility] [address] [place] [address] [place] Sodium [Moles/volume] in Ser um or PlasmaOrdered By: Carri Manuel on 09-16-2023 Sodium [Moles/Vol] 134 mmol/L Low 136-145 [facility] Comment on above: Performed By: #### C BC, CMP, LDLD, FE and TIBC, LIPID, URMA #### [facility] [address] [place] [address] [place] Urea nitrogen [Mass/volume] in Serum or PlasmaOrdered By: Carri Manuel on 09-16-2023 Urea nitrogen [Mass/Vol] 13 mg/dL Normal 7-25 [facility] Comment on above: Performed By: #### C BC, CMP, LDLD, FE and TIBC, LIPID, URMA #### [facility] [address] [place] [address] [place] Glucose Glucometer (BldC) [M ass/Vol]Ordered By: Carri Manuel on 07-13-2023 Glucose [Mass/Vol] 119 mg/dL [facility] Comment on above: Random Glucose Refer ence Range is dependent on time and content of last meal. Glucose of more than 200 mg/dL in a nonstressed, ambulatory subject supports the diagnosis of Diabetes Mellitus. HCG ( test) [place].rapi d Ql (U)Ordered By: Julio Monroe on 07-13-2023 HCG ( test) Ql (U) Negative [facility] No Panel InformationOrdered By: Carri Manuel on 07-13-2023 Bedside Glucose Comment Glu2: cleaned meter [facility] Basophils Auto (Bld) [#/Vol] Ordered By: Carri Manuel on 06-30-2023 Basophils (Bld) [#/Vol] 0.1 10*3/uL 0.0-0.2 [facility] Basophils/100 WBC Auto (Bld) Ordered By: Carri Manuel on 06-30-2023 Basophils/100 WBC (Bld) 0.7 % . [facility] System Calcium [Mass/volume] in Ser um or PlasmaOrdered By: Carri Manuel on 06-30-2023 Calcium [Mass/Vol] 9.2 mg/dL 8.6-10.3 [facility] Carbon dioxide, total [Moles /volume] in Serum or PlasmaOrdered By: Carri Manuel on 06-30-2023 CO2 [Moles/Vol] 26.7 mmol/L 21.0-31.0 [facility] Chloride [Moles/volume] in S alissa or PlasmaOrdered By: Carri Manuel on 06-30-2023 Chloride [Moles/Vol] 100 mmol/L 98-107 [facility] Creatinine [Mass/volume] in Serum or PlasmaOrdered By: Carri Manuel on 06-30-2023 Creatinine [Mass/Vol] 0.54 mg/dL 0.60-1.20 [facility] Eosinophils Auto (Bld) [#/Vo l]Ordered By: Carri Manuel on 06-30-2023 Eosinophils (Bld) [#/Vol] 0.1 10*3/uL 0.0-0.45 [facility] Eosinophils/100 WBC Auto (Bl d)Ordered By: Carri Manuel on 06-30-2023 Eosinophils/100 WBC (Bld) 0.4 % . [facility] Erythrocyte distribution wid th Auto (RBC) [Ratio]Ordered By: Carri Manuel on 06-30-2023 Erythrocyte distribution width (RBC) [Ratio] 13.3 % 11.9-15.3 [facility] Glucose [Mass/volume] in Ser um or PlasmaOrdered By: Carri Manuel on 06-30-2023 Glucose [Mass/Vol] 134 mg/dL 70-100 [facility] Comment on above: ADA recommended refe rence rangeRandom Glucose Reference Range is dependent on time and content of last meal. Glucose of more than 200 mg/dL in a nonstressed, ambulatory subject supports the diagnosis of Diabetes Mellitus. Hematocrit Auto (Bld) [Volum e fraction]Ordered By: Carri Manuel on 06-30-2023 Hematocrit (Bld) [Volume fraction] 38.9 % 34.0-46.4 [facility] Hemoglobin [Mass/volume] in BloodOrdered By: Carri Manuel on 06-30-2023 Hemoglobin (Bld) [Mass/Vol] 13.0 g/dL 11.8-15.4 [facility] Leukocytes [#/volume] correc cherie for nucleated erythrocytes in Blood by Automated counOrdered By: Carri Manuel on 06-30-2023 WBC corrected for nucl RBC Auto (Bld) [#/Vol] 15.4 10*3/uL 3.8-11.6 [facility] Lymphocytes Auto (Bld) [#/Vo l]Ordered By: Carri Manuel on 06-30-2023 Lymphocytes (Bld) [#/Vol] 4.3 10*3/uL 1.00-4.8 [facility] Lymphocytes/100 WBC Auto (Bl d)Ordered By: Carri Manuel on 06-30-2023 Lymphocytes/100 WBC (Bld) 27.8 % . [facility] MCH Auto (RBC) [Entitic mass ]Ordered By: Carri Manuel on 06-30-2023 MCH (RBC) [Entitic mass] 30.0 pg 24.7-34.3 [facility] MCHC Auto (RBC) [Mass/Vol]Or dered By: Carri Manuel on 06-30-2023 MCHC (RBC) [Mass/Vol] 33.5 g/dL 32.0-35.0 [facility] MCV Auto (RBC) [Entitic vol] Ordered By: Carri Manuel on 06-30-2023 MCV (RBC) [Entitic vol] 89.6 fL 80-100 [facility] Monocytes Auto (Bld) [#/Vol] Ordered By: Carri Manuel on 06-30-2023 Monocytes (Bld) [#/Vol] 1.2 10*3/uL 0.0-0.8 [facility] Monocytes/100 WBC Auto (Bld) Ordered By: Carri Manuel on 06-30-2023 Monocytes/100 WBC (Bld) 7.5 % . [facility] Neutrophils Auto (Bld) [#/Vo l]Ordered By: Carri Manuel on 06-30-2023 Neutrophils (Bld) [#/Vol] 9.8 10*3/uL 1.8-7.7 [facility] Neutrophils/100 WBC Auto (Bl d)Ordered By: Carri Manuel on 06-30-2023 Neutrophils/100 WBC (Bld) 63.6 % . [facility] No Panel InformationOrdered By: Carri Manuel on 06-30-2023 Estimated GFR (CKD-EPI) > 60.0 mL/Min [facility] Creatinine Clearance (Chem N/A [facility] Nucleated erythrocytes [Pres ence] in Blood by Automated countOrdered By: Carri Manuel on 06-30-2023 Nucleated RBC Auto Ql (Bld) 0.0 /100{WBC} 0-0.5 [facility] Platelet mean volume Auto (B ld) [Entitic vol]Ordered By: Carri Manuel on 06-30-2023 Platelet mean volume (Bld) [Entitic vol] 7.9 fL 6.3-10.7 [facility] Platelets Auto (Bld) [#/Vol] Ordered By: Carri Manuel on 06-30-2023 Platelets (Bld) [#/Vol] 275 10*3/uL 150-450 [facility] Potassium [Moles/volume] in Serum or PlasmaOrdered By: Carri Manuel on 06-30-2023 Potassium [Moles/Vol] 4.3 mmol/L 3.5-5.1 [facility] RBC Auto (Bld) [#/Vol]Ordere d By: Carri Manuel on 06-30-2023 RBC (Bld) [#/Vol] 4.34 10*6/uL 3.60-5.00 [facility] Serum or plasma anion gap de terminationOrdered By: Carri Manuel on 06-30-2023 Anion gap [Moles/Vol] 14.6 mmol/L 6.0-15.0 [facility] Sodium [Moles/volume] in Ser um or PlasmaOrdered By: Carri Manuel on 06-30-2023 Sodium [Moles/Vol] 137 mmol/L 136-145 [facility] Urea nitrogen [Mass/volume] in Serum or PlasmaOrdered By: Carri Manuel on 06-30-2023 Urea nitrogen [Mass/Vol] 11 mg/dL 04-27 [facility] WBC Auto (Bld) [#/Vol]Ordere d By: Carri Manuel on 06-30-2023 WBC (Bld) [#/Vol] 15.4 10*3/uL 3.8-11.6 [facility] HCG ( test) IA.rapi d Ql (U)Ordered By: Kyler Miramontes on 05-05-2023 HCG ( test) Ql (U) Negative [facility] Alanine aminotransferase [En zymatic activity/volume] in Serum or PlasmaOrdered By: Ajit Pettit on 05-04-2023 ALT [Catalytic activity/Vol] 17 U/L 7 [facility] Albumin [Mass/volume] in Ser um or Plasma by Bromocresol green (BCG) dye binding methoOrdered By: Ajit Pettit on 05-04-2023 Albumin BCG dye [Mass/Vol] 4.4 g/dL 3.5-5.7 [facility] Alkaline phosphatase [Enzyma tic activity/volume] in Serum or PlasmaOrdered By: Ajit Pettit on 05-04-2023 ALP [Catalytic activity/Vol] 55 U/L 34-104 [facility] Aspartate aminotransferase [ Enzymatic activity/volume] in Serum or PlasmaOrdered By: Ajit Pettit on 05-04-2023 AST [Catalytic activity/Vol] 18 U/L 13-39 [facility] Basophils Auto (Bld) [#/Vol] Ordered By: Ajit Pettit on 05-04-2023 Basophils (Bld) [#/Vol] 0.1 10*3/uL 0.0-0.2 [facility] Basophils/100 WBC Auto (Bld) Ordered By: Ajit Pettit on 05-04-2023 Basophils/100 WBC (Bld) 0.9 % . [facility] Bilirubin.total [Mass/volume ] in Serum or PlasmaOrdered By: Ajit Pettit on 05-04-2023 Bilirubin [Mass/Vol] 0.3 mg/dL 0.3-1.0 [facility] Calcium [Mass/volume] in Ser um or PlasmaOrdered By: Ajit Pettit on 05-04-2023 Calcium [Mass/Vol] 9.6 mg/dL 8.6-10.3 [facility] Carbon dioxide, total [Moles /volume] in Serum or PlasmaOrdered By: Ajit Pettit on 05-04-2023 CO2 [Moles/Vol] 28.5 mmol/L 21.0-31.0 [facility] Chloride [Moles/volume] in S alissa or PlasmaOrdered By: Ajit Pettit on 05-04-2023 Chloride [Moles/Vol] 100 mmol/L 98-107 [facility] Cholesterol [Mass/volume] in Serum or PlasmaOrdered By: Ajit Pettit on 05-04-2023 Cholesterol [Mass/Vol] 180 mg/dL 140-200 [facility] Comment on above: Chol less than 200 m g/dl low riskChol 201-239 mg/dl borderline riskChol 240 mg/dl and greater high risk Cholesterol in LDL Calc [Mas s/Vol]Ordered By: Ajit Pettit on 05-04-2023 Cholesterol in LDL [Mass/Vol] 81 mg/dL 0-100 [facility] Comment on above: LDL ATP III CLASSIFI CATIONLDL less than 100 mg/dL OptimalLDL 100-129 mg/dL Near or above optimalLDL 130-159 mg/dL Borderline highLDL 160-189 mg/dL HighLDL greater than 189 mg/dL Very high Cholesterol in VLDL Calc [Ma ss/Vol]Ordered By: Ajit Pettit on 05-04-2023 Cholesterol in VLDL [Mass/Vol] 46 mg/dL [facility] Creatinine [Mass/volume] in Serum or PlasmaOrdered By: Ajit Pettit on 05-04-2023 Creatinine [Mass/Vol] 0.65 mg/dL 0.60-1.20 [facility] Eosinophils Auto (Bld) [#/Vo l]Ordered By: Ajit Pettit on 05-04-2023 Eosinophils (Bld) [#/Vol] 0.1 10*3/uL 0.0-0.45 [facility] Eosinophils/100 WBC Auto (Bl d)Ordered By: Ajit Pettit on 05-04-2023 Eosinophils/100 WBC (Bld) 0.5 % . [facility] Erythrocyte distribution wid th Auto (RBC) [Ratio]Ordered By: Ajit Pettit on 05-04-2023 Erythrocyte distribution width (RBC) [Ratio] 13.4 % 11.9-15.3 [facility] Ferritin [Mass/volume] in Se rum or PlasmaOrdered By: Ajit Pettit on 05-04-2023 Ferritin [Mass/Vol] 90.4 ng/mL 11.0-306.8 [facility] Globulin Calc (S) [Mass/Vol] Ordered By: Ajit Pettit on 05-04-2023 Globulin (S) [Mass/Vol] 2.3 g/dL [facility] Glucose [Mass/volume] in Ser um or PlasmaOrdered By: Ajit Pettit on 05-04-2023 Glucose [Mass/Vol] 124 mg/dL 70-100 [facility] Comment on above: ADA recommended refe rence rangeRandom Glucose Reference Range is dependent on time and content of last meal. Glucose of more than 200 mg/dL in a nonstressed, ambulatory subject supports the diagnosis of Diabetes Mellitus. Hematocrit Auto (Bld) [Volum e fraction]Ordered By: Ajit Pettit on 05-04-2023 Hematocrit (Bld) [Volume fraction] 41.7 % 34.0-46.4 [facility] Hemoglobin [Mass/volume] in BloodOrdered By: Ajit Pettit on 05-04-2023 Hemoglobin (Bld) [Mass/Vol] 14.0 g/dL 11.8-15.4 [facility] Iron [Mass/volume] in Serum or PlasmaOrdered By: Ajit Pettit on 05-04-2023 Iron [Mass/Vol] 95 ug/dL 50-212 [facility] Iron binding capacity [Mass/ volume] in Serum or PlasmaOrdered By: Ajit Pettit on 05-04-2023 Iron binding capacity [Mass/Vol] 476 ug/dL 255-450 [facility] Iron saturation [Mass Fracti on] in Serum or PlasmaOrdered By: Ajit Pettit on 05-04-2023 Iron saturation [Mass fraction] 20.0 % 20-50 [facility] Leukocytes [#/volume] correc cherie for nucleated erythrocytes in Blood by Automated counOrdered By: Ajit Pettit on 05-04-2023 WBC corrected for nucl RBC Auto (Bld) [#/Vol] 14.4 10*3/uL 3.8-11.6 [facility] Lymphocytes Auto (Bld) [#/Vo l]Ordered By: Ajit Pettit on 05-04-2023 Lymphocytes (Bld) [#/Vol] 3.2 10*3/uL 1.00-4.8 [facility] Lymphocytes/100 WBC Auto (Bl d)Ordered By: Ajit Pettit on 05-04-2023 Lymphocytes/100 WBC (Bld) 22.3 % . [facility] MCH Auto (RBC) [Entitic mass ]Ordered By: Ajit Pettit on 05-04-2023 MCH (RBC) [Entitic mass] 29.8 pg 24.7-34.3 [facility] MCHC Auto (RBC) [Mass/Vol]Or dered By: Ajit Pettit on 05-04-2023 MCHC (RBC) [Mass/Vol] 33.5 g/dL 32.0-35.0 [facility] MCV Auto (RBC) [Entitic vol] Ordered By: Ajit Pettit on 05-04-2023 MCV (RBC) [Entitic vol] 89.1 fL 80-100 [facility] Monocytes Auto (Bld) [#/Vol] Ordered By: Ajit Pettit on 05-04-2023 Monocytes (Bld) [#/Vol] 0.9 10*3/uL 0.0-0.8 [facility] Monocytes/100 WBC Auto (Bld) Ordered By: Ajit Pettit on 05-04-2023 Monocytes/100 WBC (Bld) 6.3 % . [facility] Neutrophils Auto (Bld) [#/Vo l]Ordered By: Ajit Pettit on 05-04-2023 Neutrophils (Bld) [#/Vol] 10.1 10*3/uL 1.8-7.7 [facility] Neutrophils/100 WBC Auto (Bl d)Ordered By: Ajit Pettit on 05-04-2023 Neutrophils/100 WBC (Bld) 70.0 % . [facility] No Panel InformationOrdered By: Ajit Pettit on 05-04-2023 Estimated GFR (CKD-EPI) > 60.0 mL/Min [facility] Creatinine Clearance (Chem N/A [facility] Nucleated erythrocytes [Pres ence] in Blood by Automated countOrdered By: Ajit Pettit on 05-04-2023 Nucleated RBC Auto Ql (Bld) 0.1 /100{WBC} 0-0.5 [facility] Platelet mean volume Auto (B ld) [Entitic vol]Ordered By: Ajit Pettit on 05-04-2023 Platelet mean volume (Bld) [Entitic vol] 8.4 fL 6.3-10.7 [facility] Platelets Auto (Bld) [#/Vol] Ordered By: Ajit Pettit on 05-04-2023 Platelets (Bld) [#/Vol] 328 10*3/uL 150-450 [facility] Potassium [Moles/volume] in Serum or PlasmaOrdered By: Ajit Pettit on 05-04-2023 Potassium [Moles/Vol] 5.3 mmol/L 3.5-5.1 [facility] Protein [Mass/volume] in Ser um or PlasmaOrdered By: Ajit Pettit on 05-04-2023 Protein [Mass/Vol] 6.7 g/dL 6.4-8.9 [facility] RBC Auto (Bld) [#/Vol]Ordere d By: Ajit Pettit on 05-04-2023 RBC (Bld) [#/Vol] 4.68 10*6/uL 3.60-5.00 [facility] Serum or plasma albumin/glob ulin mass ratioOrdered By: Ajit Pettit on 05-04-2023 Albumin/Globulin [Mass ratio] 1.9 {ratio} [facility] Serum or plasma anion gap de terminationOrdered By: Ajit Pettit on 05-04-2023 Anion gap [Moles/Vol] 11.8 mmol/L 6.0-15.0 [facility] Serum or plasma high density lipoprotein (HDL) cholesterol measurementOrdered By: Ajit Pettit on 05-04-2023 Cholesterol in HDL [Mass/Vol] 52 mg/dL 23-92 [facility] Comment on above: HDL CHOL ATP-III CLA SSIFICATION Cardiovascular RiskHDL > or equal to 60 mg/dL LOWHDL < 40 mg/dL HIGH Serum or plasma total choles terol/high density lipoprotein (HDL) cholesterol mass ratOrdered By: Ajit Pettit on 05-04-2023 Cholesterol.total/Suellen sterol in HDL [Mass ratio] 3.5 {ratio} <5.0 [facility] Sodium [Moles/volume] in Ser um or PlasmaOrdered By: Ajit Pettit on 05-04-2023 Sodium [Moles/Vol] 135 mmol/L 136-145 [facility] Thyrotropin [Units/volume] i n Serum or PlasmaOrdered By: Ajit Pettit on 05-04-2023 TSH Qn 1.97 m[IU]/L 0.45-5.33 [facility] Transferrin [Mass/volume] in Serum or PlasmaOrdered By: Ajit Pettit on 05-04-2023 Transferrin [Mass/Vol] 340 mg/dL 203-362 [facility] Triglyceride [Mass/volume] i n Serum or PlasmaOrdered By: Ajit Pettit on 05-04-2023 Triglyceride [Mass/Vol] 233 mg/dL 0-149 [facility] Comment on above: TRIG ATP III CLASSIF ICATIONTRIG less than 150 mg/dL NormalTRIG 150-199 mg/dL Borderline highTRIG 200-500 mg/dL High TRIG greater than 500 mg/dL Very highStandard traceable to the Center for Disease Conrtrol and Prevention (CDC) test method. Urea nitrogen [Mass/volume] in Serum or PlasmaOrdered By: Ajit Pettit on 05-04-2023 Urea nitrogen [Mass/Vol] 9 mg/dL 7 [facility] Urine culture routineOrdered By: Ajit Pettit on 05-04-2023 Bacteria identified Cx Nom (U) Strep. agalactiae Grp B [facility] WBC Auto (Bld) [#/Vol]Ordere d By: Ajit Pettit on 05-04-2023 WBC (Bld) [#/Vol] 14.4 10*3/uL 3.8-11.6 [facility] HCG ( test) IA.cashi d Ql (U)Ordered By: Kyler Miramontes on 04-14-2023 HCG ( test) Ql (U) Negative [facility] CBC AUTO DIFFon 02-15-2023 BASO # 0.1 103/ul Normal 0.0-0.1 [facility] Comment on above: Performed By: #### C BC #### [facility] [address] [address] [address] Vito Grimm Basophils/100 WBC (Bld) 0.5 % Normal 0.2-2.0 [facility] Comment on above: Performed By: #### C BC #### [facility] [address] [address] [address] Vito Grimm EO # 0.1 103/ul Normal 0.0-0.7 [facility] Comment on above: Performed By: #### C BC #### [facility] [address] [address] [address] Vito Grimm Eosinophils/100 WBC (Bld) 0.8 % Critically low 0.9-7.0 [facility] Comment on above: Performed By: #### C BC #### [facility] [address] [place] [address] Dr. Vito Grimm Erythrocyte distribution width (RBC) [Ratio] 13.1 % Normal 11.0-15.0 [facility] Comment on above: Performed By: #### C BC #### [facility] [address] [place] [address] Dr. Vito Grimm Hematocrit (Bld) [Volume fraction] 41.2 % Normal 36.0-48.0 [facility] Comment on above: Performed By: #### C BC #### [facility] [address] [place] [address] Dr. iVto Grimm Hemoglobin (Bld) [Mass/Vol] 13.4 g/dL Normal 12.0-16.0 [facility] Comment on above: Performed By: #### C BC #### [facility] [address] [place] [address] Dr. Vito Grimm IG # 0.05 10e3/ul Critically high 0.00-0.03 [facility] Comment on above: Performed By: #### C BC #### [facility] [address] [place] [address] Dr. Vito Grimm IG % 0.4 % Normal 0.0-0.5 [facility] Comment on above: Performed By: #### C BC #### [facility] [address] [place] [address] Dr. Vito Grimm LYMPH # 4.8 103/ul Critically high 1.2-3.8 [facility] Comment on above: Performed By: #### C BC #### [facility] [address] [place] [address] Dr. Vito Grimm Lymphocytes/100 WBC (Bld) 38.8 % Normal 20.5-60.0 [facility] Comment on above: Performed By: #### C BC #### [facility] [address] [place] [address] Dr. Vito Grimm MANUAL DIFF REQ NO Normal [facility] Comment on above: Performed By: #### C BC #### [facility] [address] [place] [address] Dr. Vito Grimm MCH (RBC) [Entitic mass] 29.9 pg Normal 26.7-34.0 [facility] Comment on above: Performed By: #### C BC #### [facility] [address] [place] [address] Dr. Vito Grimm MCHC (RBC) [Mass/Vol] 32.5 g/dL Normal 29.9-35.2 [facility] Comment on above: Performed By: #### C BC #### [facility] [address] [place] [address] Dr. Vito Grimm MCV (RBC) [Entitic vol] 92.0 fL Normal 81.0-99.0 [facility] Comment on above: Performed By: #### C BC #### [facility] [address] [place] [address] Dr. Vito Grimm MONO # 0.9 103/ul Critically high 0.3-0.8 [facility] Comment on above: Performed By: #### C BC #### [facility] [address] [place] [address] Dr. Vito Grimm Monocytes/100 WBC (Bld) 7.4 % Normal 1.7-12.0 [facility] Comment on above: Performed By: #### C BC #### [facility] [address] [place] [address] Dr. Vito Grimm NEUT # 6.5 103/ul Normal 1.4-6.5 [facility] Comment on above: Performed By: #### C BC #### [facility] [address] [place] [address] Dr. Vito Grimm Neutrophils/100 WBC (Bld) 52.1 % Normal 43.0-75.0 [facility] Comment on above: Performed By: #### C BC #### [facility] [address] [place] [address] Dr. Vito Grimm Platelet mean volume (Bld) [Entitic vol] 10.0 fL Normal 9.5-13.5 [facility] Comment on above: Performed By: #### C BC #### [facility] [address] [place] [address] Dr. Vito Grimm PLT 298 103/ul Normal 150-450 [facility] Comment on above: Performed By: #### C BC #### [facility] [address] [place] [address] Dr. Vito Grimm RBC 4.48 106/ul Normal 4.20-5.40 [facility] Comment on above: Performed By: #### C BC #### [facility] [address] [place] [address] Dr. Vito Grimm WBC 12.4 103/ul Critically high 4.0-11.0 [facility] Comment on above: Performed By: #### C BC #### [facility] [address] [place] [address] Dr. Vito Grimm DEPAKENE/ VALPROIC ACIDon DEPAKENE 49.4 ug/ml Critically low 50.0-100.0 [facility] Comment on above: Performed By: #### C MP, HSTROPN #### [facility] [address] [place] [address] Dr. Vito Grimm LACTATE/LACTIC ACIDon 2022 Lactate [Moles/Vol] 2.7 mmol/L Critically high 0.4-2.0 [facility] Comment on above: Performed By: #### L ACT #### [facility] [address] [place] [address] Dr. Vito Grimm PROF CHEM 8 (BAS METB)on Anion gap [Moles/Vol] 17.6 mmol/L Normal [facility] Comment on above: Performed By: #### B MP #### [facility] [address] [place] [address] Dr. Vito Grimm Calcium [Mass/Vol] 8.7 mg/dL Normal 8.5-10.1 [facility] Comment on above: Performed By: #### B MP #### [facility] [address] [place] [address] Dr. Vito Grimm Chloride [Moles/Vol] 99 mmol/L Normal 98-107 [facility] Comment on above: Performed By: #### B MP #### [facility] [address] [address] [address] Vito Grimm CO2 [Moles/Vol] 23.5 mmol/L Normal 21.0-32.0 [facility] Comment on above: Performed By: #### B MP #### [facility] [address] [address] [address] Vito Grimm Creatinine [Mass/Vol] 0.75 mg/dL Normal 0.55-1.02 [facility] Comment on above: Performed By: #### B MP #### [facility] [address] [address] [address] Vito Grimm EGFR-AF BULGARIAN >60 Normal >=60 [facility] Comment on above: Performed By: #### B MP #### [facility] [address] [address] [address] Vito Grimm EGFR-NON AF BULGARIAN >60 Normal >=60 [facility] Comment on above: Performed By: #### B MP #### [facility] [address] [address] [address] Vito Grimm Glucose [Mass/Vol] 273 mg/dL Critically high 74-106 [facility] Comment on above: Performed By: #### B MP #### [facility] [address] [place] [address] Dr. Vito Grimm Potassium [Moles/Vol] 4.1 mmol/L Normal 3.5-5.1 [facility] Comment on above: Performed By: #### B MP #### [facility] [address] [address] [address] Vito Grimm Sodium [Moles/Vol] 136 mmol/L Normal 136-145 [facility] Comment on above: Performed By: #### B MP #### [facility] [address] [address] [address] Vito Grimm Urea nitrogen [Mass/Vol] 6.0 mg/dL Critically low 7.0-18.0 [facility] Comment on above: Performed By: #### B MP #### [facility] [address] [address] [address] Vito Grimm Urea nitrogen/Creatinine [Mass ratio] 8.0 mg/mg Normal [facility] Comment on above: Performed By: #### B #### [facility] [address] [place] [address] Dr. Vito Grimm Alanine aminotransferase [En zymatic activity/volume] in Serum or PlasmaOrdered By: Ajit Pettit on 02-09-2023 ALT [Catalytic activity/Vol] 29 U/L 7-52 [facility] Albumin [Mass/volume] in Ser um or Plasma by Bromocresol green (BCG) dye binding methoOrdered By: Ajit Pettit on 02-09-2023 Albumin BCG dye [Mass/Vol] 4.4 g/dL 3.5-5.7 [facility] Alkaline phosphatase [Enzyma tic activity/volume] in Serum or PlasmaOrdered By: Ajit Millanc on 02-09-2023 ALP [Catalytic activity/Vol] 72 U/L 34-104 [facility] Aspartate aminotransferase [ Enzymatic activity/volume] in Serum or PlasmaOrdered By: Ajit Millanc on 02-09-2023 AST [Catalytic activity/Vol] 27 U/L 13-39 [facility] Basophils Auto (Bld) [#/Vol] Ordered By: Ajit Pettit on 02-09-2023 Basophils (Bld) [#/Vol] 0.1 10*3/uL 0.0-0.2 [facility] Basophils/100 WBC Auto (Bld) Ordered By: Ajit Pettit on 02-09-2023 Basophils/100 WBC (Bld) 0.6 % . [facility] Bilirubin.total [Mass/volume ] in Serum or PlasmaOrdered By: Ajti Millanc on 02-09-2023 Bilirubin [Mass/Vol] 0.3 mg/dL 0.3-1.0 [facility] Calcium [Mass/volume] in Ser um or PlasmaOrdered By: Ajit Lariossic on 02-09-2023 Calcium [Mass/Vol] 9.3 mg/dL 8.6-10.3 [facility] Carbon dioxide, total [Moles /volume] in Serum or PlasmaOrdered By: Ajit Pettit on 02-09-2023 CO2 [Moles/Vol] 23.8 mmol/L 21.0-31.0 [facility] Chloride [Moles/volume] in S alissa or PlasmaOrdered By: Ajit Pettit on 02-09-2023 Chloride [Moles/Vol] 101 mmol/L 98-107 [facility] Cholesterol [Mass/volume] in Serum or PlasmaOrdered By: Ajit Pettit on 02-09-2023 Cholesterol [Mass/Vol] 166 mg/dL 140-200 [facility] Comment on above: Chol less than 200 m g/dl low riskChol 201-239 mg/dl borderline riskChol 240 mg/dl and greater high risk Cholesterol in LDL Calc [Mas s/Vol]Ordered By: Ajit Pettit on 02-09-2023 Cholesterol in LDL [Mass/Vol] TNP [facility] Comment on above: Test not performed Cholesterol in LDL [Mass/vol ume] in Serum or PlasmaOrdered By: Ajit Pettit on 02-09-2023 Cholesterol in LDL [Mass/Vol] 61 mg/dL 0-100 [facility] Comment on above: LDL ATP III CLASSIFI CATIONLDL less than 100 mg/dL OptimalLDL 100-129 mg/dL Near or above optimalLDL 130-159 mg/dL Borderline highLDL 160-189 mg/dL HighLDL greater than 189 mg/dL Very high Cholesterol in VLDL Calc [Ma ss/Vol]Ordered By: Ajit Pettit on 02-09-2023 Cholesterol in VLDL [Mass/Vol] 97 mg/dL [facility] Creatinine [Mass/volume] in Serum or PlasmaOrdered By: Ajit Pettit on 02-09-2023 Creatinine [Mass/Vol] 0.75 mg/dL 0.60-1.20 [facility] Eosinophils Auto (Bld) [#/Vo l]Ordered By: Ajit Pettit on 02-09-2023 Eosinophils (Bld) [#/Vol] 0.1 10*3/uL 0.0-0.45 [facility] Eosinophils/100 WBC Auto (Bl d)Ordered By: Ajit Pettit on 02-09-2023 Eosinophils/100 WBC (Bld) 0.7 % . [facility] Erythrocyte distribution wid th Auto (RBC) [Ratio]Ordered By: Ajit Pettit on 02-09-2023 Erythrocyte distribution width (RBC) [Ratio] 13.1 % 11.9-15.3 [facility] Globulin Calc (S) [Mass/Vol] Ordered By: Ajit Pettit on 02-09-2023 Globulin (S) [Mass/Vol] 2.3 g/dL [facility] Glucose [Mass/volume] in Ser um or PlasmaOrdered By: Ajit Pettit on 02-09-2023 Glucose [Mass/Vol] 286 mg/dL 70-100 [facility] Comment on above: ADA recommended refe rence rangeRandom Glucose Reference Range is dependent on time and content of last meal. Glucose of more than 200 mg/dL in a nonstressed, ambulatory subject supports the diagnosis of Diabetes Mellitus. Hematocrit Auto (Bld) [Volum e fraction]Ordered By: Ajit Pettit on 02-09-2023 Hematocrit (Bld) [Volume fraction] 39.7 % 34.0-46.4 [facility] Hemoglobin [Mass/volume] in BloodOrdered By: Ajit Pettit on 02-09-2023 Hemoglobin (Bld) [Mass/Vol] 13.1 g/dL 11.8-15.4 [facility] Leukocytes [#/volume] correc cherie for nucleated erythrocytes in Blood by Automated counOrdered By: Ajit Pettit on 02-09-2023 WBC corrected for nucl RBC Auto (Bld) [#/Vol] 13.2 10*3/uL 3.8-11.6 [facility] Lymphocytes Auto (Bld) [#/Vo l]Ordered By: Ajit Pettit on 02-09-2023 Lymphocytes (Bld) [#/Vol] 3.6 10*3/uL 1.00-4.8 [facility] Lymphocytes/100 WBC Auto (Bl d)Ordered By: Ajit Pettit on 02-09-2023 Lymphocytes/100 WBC (Bld) 27.3 % . [facility] MCH Auto (RBC) [Entitic mass ]Ordered By: Ajit Pettit on 02-09-2023 MCH (RBC) [Entitic mass] 29.5 pg 24.7-34.3 [facility] MCHC Auto (RBC) [Mass/Vol]Or dered By: Ajit Pettit on 02-09-2023 MCHC (RBC) [Mass/Vol] 33.1 g/dL 32.0-35.0 [facility] MCV Auto (RBC) [Entitic vol] Ordered By: Ajit Pettit on 02-09-2023 MCV (RBC) [Entitic vol] 89.3 fL 80-100 [facility] Monocytes Auto (Bld) [#/Vol] Ordered By: Ajit Pettit on 02-09-2023 Monocytes (Bld) [#/Vol] 0.9 10*3/uL 0.0-0.8 [facility] Monocytes/100 WBC Auto (Bld) Ordered By: Ajit Pettit on 02-09-2023 Monocytes/100 WBC (Bld) 7.0 % . [facility] Neutrophils Auto (Bld) [#/Vo l]Ordered By: Ajit Pettit on 02-09-2023 Neutrophils (Bld) [#/Vol] 8.5 10*3/uL 1.8-7.7 [facility] Neutrophils/100 WBC Auto (Bl d)Ordered By: Ajit Pettit on 02-09-2023 Neutrophils/100 WBC (Bld) 64.4 % . [facility] No Panel InformationOrdered By: Ajit Pettit on 02-09-2023 Estimated GFR (CKD-EPI) > 60.0 mL/Min [facility] Creatinine Clearance (Chem N/A [facility] Nucleated erythrocytes [Pres ence] in Blood by Automated countOrdered By: Ajit Pettit on 02-09-2023 Nucleated RBC Auto Ql (Bld) 0.0 /100{WBC} 0-0.5 [facility] Platelet mean volume Auto (B ld) [Entitic vol]Ordered By: Ajit Pettit on 02-09-2023 Platelet mean volume (Bld) [Entitic vol] 8.8 fL 6.3-10.7 [facility] Platelets Auto (Bld) [#/Vol] Ordered By: Ajit Pettit on 02-09-2023 Platelets (Bld) [#/Vol] 295 10*3/uL 150-450 [facility] Potassium [Moles/volume] in Serum or PlasmaOrdered By: Ajit Pettit on 02-09-2023 Potassium [Moles/Vol] 4.5 mmol/L 3.5-5.1 [facility] Protein [Mass/volume] in Ser um or PlasmaOrdered By: Ajit Pettit on 02-09-2023 Protein [Mass/Vol] 6.7 g/dL 6.4-8.9 [facility] RBC Auto (Bld) [#/Vol]Ordere d By: Ajit Pettit on 02-09-2023 RBC (Bld) [#/Vol] 4.44 10*6/uL 3.60-5.00 [facility] Serum or plasma albumin/glob ulin mass ratioOrdered By: Ajit Pettit on 02-09-2023 Albumin/Globulin [Mass ratio] 1.9 {ratio} [facility] Serum or plasma anion gap de terminationOrdered By: Ajit Pettit on 02-09-2023 Anion gap [Moles/Vol] 15.7 mmol/L 6.0-15.0 [facility] Serum or plasma high density lipoprotein (HDL) cholesterol measurementOrdered By: Ajit Pettit on 02-09-2023 Cholesterol in HDL [Mass/Vol] 41 mg/dL 35-85 [facility] Comment on above: HDL CHOL ATP-III CLA SSIFICATION Cardiovascular RiskHDL > or equal to 60 mg/dL LOWHDL < 40 mg/dL HIGH Serum or plasma total choles terol/high density lipoprotein (HDL) cholesterol mass ratOrdered By: Ajit Pettit on 02-09-2023 Cholesterol.total/Suellen sterol in HDL [Mass ratio] 4.0 {ratio} <5.0 [facility] Sodium [Moles/volume] in Ser um or PlasmaOrdered By: Ajit Pettit on 02-09-2023 Sodium [Moles/Vol] 136 mmol/L 136-145 [facility] Thyrotropin [Units/volume] i n Serum or PlasmaOrdered By: Ajit Pettit on 02-09-2023 TSH Qn 2.98 m[IU]/L 0.45-5.33 [facility] Triglyceride [Mass/volume] i n Serum or PlasmaOrdered By: Ajit Pettit on 02-09-2023 Triglyceride [Mass/Vol] 485 mg/dL 0-149 [facility] Comment on above: If the triglyceride result [...] 02-09-2023 Urea nitrogen [Mass/Vol] 10 mg/dL 7-25 [facility] Urine culture routineOrdered By: Ajit Pettit on 02-09-2023 Bacteria identified Cx Nom (U) 2 Days [facility] WBC Auto (Bld) [#/Vol]Ordere d By: Ajit Pettit on 02-09-2023 WBC (Bld) [#/Vol] 13.2 10*3/uL 3.8-11.6 [facility] ACETONE SERUMon 01-29-2023 ACETONE Negative Normal NEGATIVE [facility] Comment on above: Performed By: #### A CETON #### [facility] [address] [address] [address] Vito Grimm CBC AUTO DIFFon 01-29-2023 BASO # 0.1 103/ul Normal 0.0-0.1 [facility] Comment on above: Performed By: #### C BC #### [facility] [address] [address] [address] Vito Grimm Basophils/100 WBC (Bld) 0.5 % Normal 0.2-2.0 [facility] Comment on above: Performed By: #### C BC #### [facility] [address] [address] [address] Vito Grimm EO # 0.1 103/ul Normal 0.0-0.7 [facility] Comment on above: Performed By: #### C BC #### [facility] [address] [place] [address] Dr. Vito Grimm Eosinophils/100 WBC (Bld) 0.7 % Critically low 0.9-7.0 [facility] Comment on above: Performed By: #### C BC #### [facility] [address] [place] [address] Dr. Vito Grimm Erythrocyte distribution width (RBC) [Ratio] 12.9 % Normal 11.0-15.0 [facility] Comment on above: Performed By: #### C BC #### [facility] [address] [place] [address] Dr. Vito Grimm Hematocrit (Bld) [Volume fraction] 39.0 % Normal 36.0-48.0 [facility] Comment on above: Performed By: #### C BC #### [facility] [address] [place] [address] Dr. Vito Grimm Hemoglobin (Bld) [Mass/Vol] 13.1 g/dL Normal 12.0-16.0 [facility] Comment on above: Performed By: #### C BC #### [facility] [address] [place] [address] Dr. Vito Grimm IG # 0.11 10e3/ul Critically high 0.00-0.03 [facility] Comment on above: Performed By: #### C BC #### [facility] [address] [place] [address] Dr. Vito Grimm IG % 0.8 % Critically high 0.0-0.5 [facility] Comment on above: Performed By: #### C BC #### [facility] [address] [place] [address] Dr. Vito Grimm LYMPH # 4.6 103/ul Critically high 1.2-3.8 [facility] Comment on above: Performed By: #### C BC #### [facility] [address] [place] [address] Dr. Vito Grimm Lymphocytes/100 WBC (Bld) 34.4 % Normal 20.5-60.0 [facility] Comment on above: Performed By: #### C BC #### [facility] [address] [place] [address] Dr. Vito Grimm MANUAL DIFF REQ NO Normal [facility] Comment on above: Performed By: #### C BC #### [facility] [address] [place] [address] Dr. Vito Grimm MCH (RBC) [Entitic mass] 29.9 pg Normal 26.7-34.0 [facility] Comment on above: Performed By: #### C BC #### [facility] [address] [place] [address] Dr. Vito Grimm MCHC (RBC) [Mass/Vol] 33.6 g/dL Normal 29.9-35.2 [facility] Comment on above: Performed By: #### C BC #### [facility] [address] [place] [address] Dr. Vito Grimm MCV (RBC) [Entitic vol] 89.0 fL Normal 81.0-99.0 [facility] Comment on above: Performed By: #### C BC #### [facility] [address] [place] [address] Dr. Vito Grimm MONO # 1.0 103/ul Critically high 0.3-0.8 [facility] Comment on above: Performed By: #### C BC #### [facility] [address] [place] [address] Dr. Vito Grimm Monocytes/100 WBC (Bld) 7.3 % Normal 1.7-12.0 [facility] Comment on above: Performed By: #### C BC #### [facility] [address] [place] [address] Dr. Vito Grimm NEUT # 7.5 103/ul Critically high 1.4-6.5 [facility] Comment on above: Performed By: #### C BC #### [facility] [address] [place] [address] Dr. Vito Grimm Neutrophils/100 WBC (Bld) 56.3 % Normal 43.0-75.0 [facility] Comment on above: Performed By: #### C BC #### [facility] [address] [place] [address] Dr. Vito Grimm Platelet mean volume (Bld) [Entitic vol] 9.6 fL Normal 9.5-13.5 [facility] Comment on above: Performed By: #### C BC #### [facility] [address] [place] [address] Dr. Vito Grimm PLT 272 103/ul Normal 150-450 [facility] Comment on above: Performed By: #### C BC #### [facility] [address] [place] [address] Dr. Vito Grimm RBC 4.38 106/ul Normal 4.20-5.40 [facility] Comment on above: Performed By: #### C BC #### [facility] [address] [place] [address] Dr. Vito Grimm WBC 13.4 103/ul Critically high 4.0-11.0 [facility] Comment on above: Performed By: #### C BC #### [facility] [address] [place] [address] Dr. Vito Grimm ER URINE PROFILEon 3 Bilirubin Ql (U) Negative Normal NEGATIVE [facility] Comment on above: Performed By: #### E RUR #### [facility] [address] [place] [address] Dr. Vito Grimm Clarity (U) SL CLOUDY Abnormal CLEAR [facility] Comment on above: Performed By: #### E RUR #### [facility] [address] [place] [address] Dr. Vito Grimm Color (U) LT. YELLOW Normal YELLOW [facility] Comment on above: Performed By: #### E RUR #### [facility] [address] [place] [address] Dr. Vito Grimm ERUAHD A micrscopic examina tion will be performed if indicated. Normal [facility] Comment on above: Performed By: #### E RUR #### [facility] [address] [place] [address] Dr. Vito Grimm Glucose Ql (U) >1000 Abnormal NEGATIVE [facility] Comment on above: Performed By: #### E RUR #### [facility] [address] [place] [address] Dr. Vito Grimm Hemoglobin Ql (U) Negative Normal NEGATIVE [facility] Comment on above: Performed By: #### E RUR #### [facility] [address] [place] [address] Dr. Vito Grimm Ketones Ql (U) Negative Normal NEGATIVE [facility] Comment on above: Performed By: #### E RUR #### [facility] [address] [place] [address] Dr. Vito Grimm LEUKOCYTES Negative Normal NEGATIVE [facility] Comment on above: Performed By: #### E RUR #### [facility] [address] [place] [address] Dr. Vito Grimm Nitrite Ql (U) Negative Normal NEGATIVE [facility] Comment on above: Performed By: #### E RUR #### [facility] [address] [place] [address] Dr. Vito Grimm pH (U) 5.5 [pH] Normal 5-9 [facility] Comment on above: Performed By: #### E RUR #### [facility] [address] [place] [address] Dr. Vito Grimm SPEC GRAVITY 1.010 Normal 1.005-<=1. 025 [facility] Comment on above: Performed By: #### E RUR #### [facility] [address] [place] [address] Dr. Vito Grimm UA PROTEIN Negative Normal NEGATIVE/ TRACE [facility] Comment on above: Performed By: #### E RUR #### [facility] [address] [place] [address] Dr. Vito Grimm UR MICRO IND NOT INDICATED Normal [facility] Comment on above: Performed By: #### E RUR #### [facility] [address] [place] [address] Dr. Vito Grimm Urobilinogen Qn (U) 0.2 {Helen'U}/dL Normal 0.2 - 1. 0 [facility] Comment on above: Performed By: #### E RUR #### [facility] [address] [place] [address] Dr. Vito Grimm POINT OF CARE GLUCOSEon 01-03 Glucose [Mass/Vol] 279 mg/dL Critically high 74-[address] [facility] Comment on above: Performed By: #### P OCGLUC #### [facility] [address] [place] [address] Dr. Vito Grimm PROF 14(COMP METB)on 023 Albumin [Mass/Vol] 3.5 g/dL Normal 3.4-5.0 [facility] Comment on above: Performed By: #### C MP, HSTROPN #### [facility] [address] [place] [address] Dr. Vito Grimm Albumin/Globulin [Mass ratio] 1.0 {ratio} Normal [facility] Comment on above: Performed By: #### C MP, HSTROPN #### [facility] [address] [place] [address] Dr. Vito Grimm ALP [Catalytic activity/Vol] 85 U/L Normal 46-116 [facility] Comment on above: Performed By: #### C MP, HSTROPN #### [facility] [address] [place] [address] Dr. Vito Grimm ALT [Catalytic activity/Vol] 28 U/L Normal 14-59 [facility] Comment on above: Performed By: #### C MP, HSTROPN #### [facility] [address] [place] [address] Dr. Vito Grimm Anion gap [Moles/Vol] 15.9 mmol/L Normal [facility] Comment on above: Performed By: #### C MP, HSTROPN #### [facility] [address] [place] [address] Dr. Vito Grimm AST [Catalytic activity/Vol] 16 U/L Normal 15-37 [facility] Comment on above: Performed By: #### C MP, HSTROPN #### [facility] [address] [address] [address] Vito Grimm Bilirubin [Mass/Vol] 0.2 mg/dL Normal 0.2-1.0 [facility] Comment on above: Performed By: #### C MP, HSTROPN #### [facility] [address] [place] [address] Dr. Vito Grimm Calcium [Mass/Vol] 8.8 mg/dL Normal 8.5-10.1 [facility] Comment on above: Performed By: #### C MP, HSTROPN #### [facility] [address] [place] [address] Dr. Vito Grimm Chloride [Moles/Vol] 96 mmol/L Critically low 98-107 [facility] Comment on above: Performed By: #### C MP, HSTROPN #### [facility] [address] [place] [address] Dr. Vito Grimm CO2 [Moles/Vol] 24.1 mmol/L Normal 21.0-32.0 [facility] Comment on above: Performed By: #### C MP, HSTROPN #### [facility] [address] [place] [address] Dr. Vito Grimm Creatinine [Mass/Vol] 0.85 mg/dL Normal 0.55-1.02 [facility] Comment on above: Performed By: #### C MP, HSTROPN #### [facility] [address] [place] [address] Dr. Vito Grimm EGFR-AF BULGARIAN >60 Normal >=60 [facility] Comment on above: Performed By: #### C MP, HSTROPN #### [facility] [address] [place] [address] Dr. Vito Grimm EGFR-NON AF BULGARIAN >60 Normal >=60 [facility] Comment on above: Performed By: #### C MP, HSTROPN #### [facility] [address] [place] [address] Dr. Vito Grimm Globulin (S) [Mass/Vol] 3.6 g/dL Normal [facility] Comment on above: Performed By: #### C MP, HSTROPN #### [facility] [address] [address] [address] Vito Grimm Glucose [Mass/Vol] 350 mg/dL Critically high 74-106 [facility] Comment on above: Performed By: #### C MP, HSTROPN #### [facility] [address] [place] [address] Dr. Vito Grimm Potassium [Moles/Vol] 4.0 mmol/L Normal 3.5-5.1 [facility] Comment on above: Performed By: #### C MP, HSTROPN #### [facility] [address] [place] [address] Dr. Vito Grimm Protein [Mass/Vol] 7.1 g/dL Normal 6.4-8.2 [facility] Comment on above: Performed By: #### C MP, HSTROPN #### [facility] [address] [place] [address] Dr. Vito Grimm Sodium [Moles/Vol] 132 mmol/L Critically low 136-145 [facility] Comment on above: Performed By: #### C MP, HSTROPN #### [facility] [address] [place] [address] Dr. Vito Grimm Urea nitrogen [Mass/Vol] 10.0 mg/dL Normal 7.0-18.0 [facility] Comment on above: Performed By: #### C MP, HSTROPN #### [facility] [address] [place] [address] Dr. Vito Girmm Urea nitrogen/Creatinine [Mass ratio] 11.8 mg/mg Normal [facility] Comment on above: Performed By: #### C MP, HSTROPN #### [facility] [address] [place] [address] Dr. Vito Grimm TROPONIN, HIGH SENSITIVITYon 01-29-2023 HSTROP <4.0 Normal 4.0-51.3 [facility] Comment on above: Result Comment: CUT- OFF POINTS HAVE BEEN ESTABLISHED BASED ON THE FOURTH UNIVERSAL DEFINITIONS OF MYOCARDIAL INFARCTION. THE UPPER REFERENCE LIMIT (URL) OF TROPONIN, DEFINED THE 99TH PERCENTILE OF cTnI DISTRIBUTION IN A REFERENCE POPULATION, HAS BEEN CONFIRMED THE DECISION THRESHOLD FOR NC DIAGNOSIS. Performed By: #### C MP, HSTROPN #### [facility] [address] [place] [address] Dr. Vito Grimm HCG ( test) IA.rapi d Ql (U)Ordered By: Kyler Miramontes on 11-18-2022 HCG ( test) Ql (U) Negative [facility] CBC AUTO DIFFon 11-12-2022 BASO # 0.1 103/ul Normal 0.0-0.1 [facility] Comment on above: Performed By: #### C MATHIEU, HSTROPN #### [facility] [address] [place] [address] Dr. Vito Grimm Basophils/100 WBC (Bld) 0.6 % Normal 0.2-2.0 [facility] Comment on above: Performed By: #### C MP, HSTROPN #### [facility] [address] [place] [address] Dr. Vito Grimm EO # 0.2 103/ul Normal 0.0-0.7 [facility] Comment on above: Performed By: #### C MP, HSTROPN #### [facility] [address] [place] [address] Dr. Vito Grimm Eosinophils/100 WBC (Bld) 1.1 % Normal 0.9-7.0 [facility] Comment on above: Performed By: #### C MP, HSTROPN #### [facility] [address] [address] [address] Vito Grimm Erythrocyte distribution width (RBC) [Ratio] 12.6 % Normal 11.0-15.0 [facility] Comment on above: Performed By: #### C MP, HSTROPN #### [facility] [address] [place] [address] Dr. Vito Grimm Hematocrit (Bld) [Volume fraction] 39.7 % Normal 36.0-48.0 [facility] Comment on above: Performed By: #### C MP, HSTROPN #### [facility] [address] [place] [address] Dr. Vito Grimm Hemoglobin (Bld) [Mass/Vol] 12.9 g/dL Normal 12.0-16.0 [facility] Comment on above: Performed By: #### C MP, HSTROPN #### [facility] [address] [place] [address] Dr. Vito Grimm IG # 0.07 10e3/ul Critically high 0.00-0.03 [facility] Comment on above: Performed By: #### C MATHIEU, HSTROPN #### [facility] [address] [place] [address] Dr. Vito Grimm IG % 0.5 % Normal 0.0-0.5 [facility] Comment on above: Performed By: #### C MATHIEU, HSTROPN #### [facility] [address] [place] [address] Dr. Vito Grimm LYMPH # 5.3 103/ul Critically high 1.2-3.8 [facility] Comment on above: Performed By: #### C MATHIEU, HSTROPN #### [facility] [address] [place] [address] Dr. Vito Grimm Lymphocytes/100 WBC (Bld) 38.4 % Normal 20.5-60.0 [facility] Comment on above: Performed By: #### C MATHIEU, HSTROPN #### [facility] [address] [place] [address] Dr. Vito Grimm MANUAL DIFF REQ NO Normal [facility] Comment on above: Performed By: #### C MP, HSTROPN #### [facility] [address] [place] [address] Dr. Vito Grimm MCH (RBC) [Entitic mass] 29.7 pg Normal 26.7-34.0 [facility] Comment on above: Performed By: #### C MP, HSTROPN #### [facility] [address] [place] [address] Dr. Vito Grimm MCHC (RBC) [Mass/Vol] 32.5 g/dL Normal 29.9-35.2 [facility] Comment on above: Performed By: #### C MP, HSTROPN #### [facility] [address] [place] [address] Dr. Vito Grimm MCV (RBC) [Entitic vol] 91.5 fL Normal 81.0-99.0 [facility] Comment on above: Performed By: #### C MP, HSTROPN #### [facility] [address] [place] [address] Dr. Vito Grimm MONO # 1.0 103/ul Critically high 0.3-0.8 [facility] Comment on above: Performed By: #### C MP, HSTROPN #### [facility] [address] [place] [address] Dr. Vito Grimm Monocytes/100 WBC (Bld) 7.3 % Normal 1.7-12.0 [facility] Comment on above: Performed By: #### C MP, HSTROPN #### [facility] [address] [place] [address] Dr. Vito Grimm NEUT # 7.2 103/ul Critically high 1.4-6.5 [facility] Comment on above: Performed By: #### C MP, HSTROPN #### [facility] [address] [place] [address] Dr. Vito Grimm Neutrophils/100 WBC (Bld) 52.1 % Normal 43.0-75.0 [facility] Comment on above: Performed By: #### C MP, HSTROPN #### [facility] [address] [place] [address] Dr. Vito Grimm Platelet mean volume (Bld) [Entitic vol] 9.4 fL Critically low 9.5-13.5 [facility] Comment on above: Performed By: #### C MP, HSTROPN #### [facility] [address] [place] [address] Dr. Vito Grimm PLT 297 103/ul Normal 150-450 [facility] Comment on above: Performed By: #### C MP, HSTROPN #### [facility] [address] [place] [address] Dr. Vito Grimm RBC 4.34 106/ul Normal 4.20-5.40 [facility] Comment on above: Performed By: #### C MATHIEU, HSTROPN #### [facility] [address] [place] [address] Dr. Vito Grimm WBC 13.9 103/ul Critically high 4.0-11.0 [facility] Comment on above: Performed By: #### C MATHIEU, HSTROPN #### [facility] [address] [place] [address] Dr. Vito Grimm DEPAKENE/ VALPROIC ACIDon DEPAKENE 55.9 ug/ml Normal 50.0-100.0 [facility] Comment on above: Performed By: #### V ALP #### [facility] [address] [place] [address] Dr. Vito Grimm LACTATE/LACTIC ACIDon 2022 Lactate [Moles/Vol] 3.6 mmol/L Critically high 0.4-1.9 [facility] Comment on above: Performed By: #### C MATHIEU, HSTROPN #### [facility] [address] [place] [address] Dr. Vito Grimm PROF 14(COMP METB)on 023 Albumin [Mass/Vol] 3.6 g/dL Normal 3.4-5.0 [facility] Comment on above: Performed By: #### C MATHIEU, HSTROPN #### [facility] [address] [place] [address] Dr. Vito Grimm Albumin/Globulin [Mass ratio] 1.1 {ratio} Normal [facility] Comment on above: Performed By: #### C MATHIEU, HSTROPN #### [facility] [address] [place] [address] Dr. Vito Grimm ALP [Catalytic activity/Vol] 57 U/L Normal 46-116 [facility] Comment on above: Performed By: #### C MATHIEU, HSTROPN #### [facility] [address] [address] [address] Vito Grimm ALT [Catalytic activity/Vol] 23 U/L Normal 14-59 [facility] Comment on above: Performed By: #### C MP, HSTROPN #### [facility] [address] [address] [address] Vito Grimm Anion gap [Moles/Vol] 17.0 mmol/L Normal [facility] Comment on above: Performed By: #### C MP, HSTROPN #### [facility] [address] [address] [address] Vito Grimm AST [Catalytic activity/Vol] 16 U/L Normal 15-37 [facility] Comment on above: Performed By: #### C MP, HSTROPN #### [facility] [address] [place] [address] Dr. Vito Grimm Bilirubin [Mass/Vol] 0.1 mg/dL Critically low 0.2-1.0 [facility] Comment on above: Performed By: #### C MP, HSTROPN #### [facility] [address] [address] [address] Vito Grimm Calcium [Mass/Vol] 8.8 mg/dL Normal 8.5-10.1 [facility] Comment on above: Performed By: #### C MP, HSTROPN #### [facility] [address] [address] [address] Vito Grimm Chloride [Moles/Vol] 101 mmol/L Normal 98-107 [facility] Comment on above: Performed By: #### C MP, HSTROPN #### [facility] [address] [address] [address] Vito Grimm CO2 [Moles/Vol] 23.5 mmol/L Normal 21.0-32.0 [facility] Comment on above: Performed By: #### C MP, HSTROPN #### [facility] [address] [address] [address] Vito Grimm Creatinine [Mass/Vol] 0.72 mg/dL Normal 0.55-1.02 [facility] Comment on above: Performed By: #### C MP, HSTROPN #### [facility] [address] [place] [address] Dr. Vito Grmim EGFR-AF BULGARIAN >60 Normal >=60 [facility] Comment on above: Performed By: #### C MP, HSTROPN #### [facility] [address] [place] [address] Dr. Vito Grimm EGFR-NON AF BULGARIAN >60 Normal >=60 [facility] Comment on above: Performed By: #### C MP, HSTROPN #### [facility] [address] [place] [address] Dr. Vito Grimm Globulin (S) [Mass/Vol] 3.4 g/dL Normal [facility] Comment on above: Performed By: #### C MP, HSTROPN #### [facility] [address] [place] [address] Dr. Vito Grimm Glucose [Mass/Vol] 146 mg/dL Critically high 74-106 [facility] Comment on above: Performed By: #### C MP, HSTROPN #### [facility] [address] [place] [address] Dr. Vito Grimm Potassium [Moles/Vol] 4.5 mmol/L Normal 3.5-5.1 [facility] Comment on above: Performed By: #### C MP, HSTROPN #### [facility] [address] [place] [address] Dr. Vito Grimm Protein [Mass/Vol] 7.0 g/dL Normal 6.4-8.2 [facility] Comment on above: Performed By: #### C MP, HSTROPN #### [facility] [address] [place] [address] Dr. Vito Grimm Sodium [Moles/Vol] 137 mmol/L Normal 136-145 [facility] Comment on above: Performed By: #### C MP, HSTROPN #### [facility] [address] [place] [address] Dr. Vito Grimm Urea nitrogen [Mass/Vol] 11.0 mg/dL Normal 7.0-18.0 [facility] Comment on above: Performed By: #### C MATHIEU, HSTROPN #### [facility] [address] [address] [address] Vito Grimm Urea nitrogen/Creatinine [Mass ratio] 15.3 mg/mg Normal [facility] Comment on above: Performed By: #### C MATHIEU, HSTROPN #### [facility] [address] [address] [address] Vito Grimm Albumin [Mass/volume] in Ser um or PlasmaOrdered By: Ajit Pettit on 11-05-2022 Albumin [Mass/Vol] 4.2 g/dL 3.2-5.5 [facility] Basophils Auto (Bld) [#/Vol] Ordered By: Ajit Pettit on 11-05-2022 Basophils (Bld) [#/Vol] 0.1 10*3/uL 0.0-0.2 [facility] Basophils/100 WBC Auto (Bld) Ordered By: Ajit Pettit on 11-05-2022 Basophils/100 WBC (Bld) 0.8 % . [facility] Cholesterol [Mass/volume] in Serum or PlasmaOrdered By: Ajit Pettit on 11-05-2022 Cholesterol [Mass/Vol] 174 mg/dL 140-200 [facility] Comment on above: Chol less than 200 m g/dl low riskChol 201-239 mg/dl borderline riskChol 240 mg/dl and greater high risk Cholesterol in LDL Calc [Mas s/Vol]Ordered By: Ajit Pettit on 11-05-2022 Cholesterol in LDL [Mass/Vol] 66 mg/dL 0-100 [facility] Comment on above: LDL ATP III CLASSIFI CATIONLDL less than 100 mg/dL OptimalLDL 100-129 mg/dL Near or above optimalLDL 130-159 mg/dL Borderline highLDL 160-189 mg/dL HighLDL greater than 189 mg/dL Very high Cholesterol in VLDL Calc [Ma ss/Vol]Ordered By: Ajit Pettit on 11-05-2022 Cholesterol in VLDL [Mass/Vol] 66 mg/dL [facility] Creatinine and Glomerular fi ltration rate.predicted panel (S/P/Bld)Ordered By: Ajit Pettit on 11-05-2022 Creatinine [Mass/Vol] 0.57 mg/dL 0.44-1.03 [facility] Eosinophils Auto (Bld) [#/Vo l]Ordered By: Ajit Pettit on 11-05-2022 Eosinophils (Bld) [#/Vol] 0.1 10*3/uL 0.0-0.45 [facility] Eosinophils/100 WBC Auto (Bl d)Ordered By: Ajit Pettit on 11-05-2022 Eosinophils/100 WBC (Bld) 0.7 % . [facility] Erythrocyte distribution wid th Auto (RBC) [Ratio]Ordered By: Ajit Pettit on 11-05-2022 Erythrocyte distribution width (RBC) [Ratio] 13.5 % 11.9-15.3 [facility] Estimated glomerular filtrat ion rate (GFR) non- AmericanOrdered By: Ajit Pettit on 11-05-2022 GFR/1.73 sq M.predicted among non-blacks MDRD (S/P/Bld) [Vol rate/Area] > 60 mL/Min [facility] Globulin Calc (S) [Mass/Vol] Ordered By: Ajit Pettit on 11-05-2022 Globulin (S) [Mass/Vol] 2.6 g/dL [facility] Glucose mean value [Mass/vol ume] in Blood Estimated from glycated hemoglobinOrdered By: Ajit Pettit on 11-05-2022 Average glucose Estimated from glycated hemoglobin (Bld) [Mass/Vol] 143 mg/dL [facility] HPV 16+18+31+33+35+39+45+51+ 52+56+58+59+68 DNA cervix probe + signal amplificOrdered By: Ajit Pettit on 11-05-2022 HPV 16+18+31+33+35+39+45+51 +52+56+58+59+68 DNA Probe+sig amp Ql (Cvx) Positive Negative [facility] Comment on above: This nucleic acid am plification test detects fourteen high-risk HPV types (16,18,31,33,35,39,45,51,52,56,58,59,66,68)without differentiation. Hematocrit Auto (Bld) [Volum e fraction]Ordered By: Ajit Pettit on 11-05-2022 Hematocrit (Bld) [Volume fraction] 40.1 % 34.0-46.4 [facility] Hemoglobin A1c percentageOrd ered By: Ajit Pettit on 11-05-2022 HbA1c (Bld) [Mass fraction] 6.6 % 4.3-5.6 [facility] Comment on above: Increased risk for d iabetes: 5.7 - 6.4diabetes: >6.4glycemic control for adults with diabetes: <7.0 Hemoglobin [Mass/volume] in BloodOrdered By: Ajit Pettit on 11-05-2022 Hemoglobin (Bld) [Mass/Vol] 13.2 g/dL 11.8-15.4 [facility] Laboratory - Microbiology an d Antimicrobial susceptibilityOrdered By: Ajit Pettit on 11-05-2022 N. gonorrhoeae DNA NAYELY+probe Ql (Unsp spec) Negative Negative [facility] Comment on above: Performed at: = - [address] [id number] Director: Breanna Clark MD, Phone: [phone] Leukocytes [#/volume] correc cherie for nucleated erythrocytes in Blood by Automated counOrdered By: Ajit Pettit on 11-05-2022 WBC corrected for nucl RBC Auto (Bld) [#/Vol] 13.7 10*3/uL 3.8-11.6 [facility] Lymphocytes Auto (Bld) [#/Vo l]Ordered By: Ajit Pettit on 11-05-2022 Lymphocytes (Bld) [#/Vol] 5.1 10*3/uL 1.00-4.8 [facility] Lymphocytes/100 WBC Auto (Bl d)Ordered By: Ajit Pettit on 11-05-2022 Lymphocytes/100 WBC (Bld) 37.3 % . [facility] MCH Auto (RBC) [Entitic mass ]Ordered By: Ajit Pettit on 11-05-2022 MCH (RBC) [Entitic mass] 29.5 pg 24.7-34.3 [facility] MCHC Auto (RBC) [Mass/Vol]Or dered By: Ajit Pettit on 11-05-2022 MCHC (RBC) [Mass/Vol] 32.8 g/dL 32.0-35.0 [facility] MCV Auto (RBC) [Entitic vol] Ordered By: Ajit Pettit on 11-05-2022 MCV (RBC) [Entitic vol] 90.0 fL 80-100 [facility] Microcytes LM Ql (Bld)Ordere d By: Ajit Pettit on 11-05-2022 Microcytes Ql (Bld) Slight [facility] Monocytes Auto (Bld) [#/Vol] Ordered By: Ajit Pettit on 11-05-2022 Monocytes (Bld) [#/Vol] 1.1 10*3/uL 0.0-0.8 [facility] Monocytes/100 WBC Auto (Bld) Ordered By: Ajit Pettit on 11-05-2022 Monocytes/100 WBC (Bld) 8.3 % . [facility] Neutrophils Auto (Bld) [#/Vo l]Ordered By: Ajit Pettit on 11-05-2022 Neutrophils (Bld) [#/Vol] 7.3 10*3/uL 1.8-7.7 [facility] Neutrophils/100 WBC Auto (Bl d)Ordered By: Ajit Pettit on 11-05-2022 Neutrophils/100 WBC (Bld) 52.9 % . [facility] No Panel InformationOrdered By: Ajit Pettit on 11-05-2022 25-Hydroxy Vitamin D Total 28.8 ng/mL 30-100 [facility] Comment on above: VITAMIN D STATUS 25( [place])VITAMIN D RANGE (ng/mL) Deficient <20 Insufficient 20 to <30Sufficient 30 to 100Reference: Jovanni MF,Dominique ARORA, Gillian NINA, et al. Evaluation,treatment, and prevention of vitamin D deficiency; an Endocrine Society clinical practice guideline. JCEM. 2010; 96(7):1911-30. Luz Elena albicans (NAYELY) Negative Negative [facility] Comment on above: This test was develo ped and its performance characteristicsdetermined by [employer]. It has not been cleared orapproved by the Food and Drug Administration. Luz Elena glabrata (NAYELY) Negative Negative [facility] Comment on above: This test was develo ped and its performance characteristicsdetermined by [employer]. It has not been cleared orapproved by the Food and Drug Administration. Chlamydia trachomatis (NAYELY) (LAB) Negative Negative [facility] Estimated GFR () > 60 mL/Min [facility] Comment on above: GFR estimated refere nce range: According to KDOQI guidelines, <60 ml/min/1.73m2 is sufficient to diagnose a patient with chronic kidney disease. Human Papilloma Virus Type 16 Negative Negative [facility] Human Papilloma Virus Type 18/45 Negative Negative [facility] Comment on above: Performed at: =G - [facility] [address] [id number] Director: Breanna Clark MD, Phone: [phone] at: WB - [facility] [address] [id number] Director: Breanna Clark MD, Phone: [phone] IG Pap w/Ct-Ng Age Based (Off-Site) Note . [facility] Comment on above: TESTS RESULT FLAG UN ITS REF RANGE LAB - Clinician Provided Cytology Information No. of containers..01 ThinPrep VialAge Algo ACOG Monisha... 30-65 01 FLAG LEGEND: L-Low Normal,H-High Normal,LL-Alert Low,HH-Alert High <-Panic Low,>-Panic High,A-Abnormal,AA-Critical Abnormal ------Performed at:01 =G [facility] [place] [address] [place] [address] Breanna Clark MD, Pharmacy Creatinine Clearance (Chem N/A [facility] Thin Prep Pap Comment Note . [facility] Comment on above: TESTS RESULT FLAG UN ITS REF RANGE LAB -DIAGNOSIS: 02 NEGATIVE FOR INTRAEPITHELIAL LESION OR MALIGNANCY. THIS SPECIMEN WAS RESCREENED PART OF OUR SPEEDER OPERATOR PROGRAM.Specimen adequacy: 02 Satisfactory for evaluation. Endocervical and/or squamous metaplastic cells (endocervical component) are present.Performed by: Charla Mirza, Salad Chef (ASCP)QC reviewed by: Charla Thomason, Supervisory Salad Chef (ASC). 02Note: Note 02 The Pap smear [...] Low,>-Panic High,A-Abnormal,AA-Critical Abnormal ------Performed at:02 WB [facility] [address] [place] [address] Breanna Clark MD, Trichomonas vaginalis (NAYELY) Negative Negative [facility] Nucleated erythrocytes [Pres ence] in Blood by Automated countOrdered By: Ajit Pettti on 11-05-2022 Nucleated RBC Auto Ql (Bld) 0.1 /100{WBC} 0-0.5 [facility] Platelet adequacy [Presence] in Blood by Light microscopyOrdered By: Ajit Pettit on 11-05-2022 Platelets LM Ql (Bld) Normal Normal [facility] Platelet mean volume Auto (B ld) [Entitic vol]Ordered By: Ajit Pettit on 11-05-2022 Platelet mean volume (Bld) [Entitic vol] 9.1 fL 6.3-10.7 [facility] Platelet morphology finding [Identifier] in BloodOrdered By: Ajit Pettit on 11-05-2022 Platelet morphology finding Nom (Bld) N/A [facility] Platelets Auto (Bld) [#/Vol] Ordered By: Ajit Pettit on 11-05-2022 Platelets (Bld) [#/Vol] 304 10*3/uL 150-450 [facility] Platelets Large [Presence] i n Blood by Light microscopyOrdered By: Ajit Pettit on 11-05-2022 Platelets Large LM Ql (Bld) Slight [facility] Polychromasia [Presence] in Blood by Light microscopyOrdered By: Ajit Pettit on 11-05-2022 Polychromasia LM Ql (Bld) Slight [facility] Protein [Mass/volume] in Ser um or PlasmaOrdered By: Ajit Pettit on 11-05-2022 Protein [Mass/Vol] 6.8 g/dL 6.1-7.9 [facility] RBC Auto (Bld) [#/Vol]Ordere d By: Ajit Pettit on 11-05-2022 RBC (Bld) [#/Vol] 4.46 10*6/uL 3.60-5.00 [facility] RBC morphologyOrdered By: Cole Pettit on 11-05-2022 RBC morphology finding Nom (Bld) N/A [facility] Serum or plasma alanine george otransferase measurement without P-5'-P (enzymatic activiOrdered By: Ajit Pettit on 11-05-2022 ALT No additional P-5'-P [Catalytic activity/Vol] 16 U/L 10-60 [facility] Serum or plasma albumin/glob ulin mass ratioOrdered By: Ajit Pettit on 11-05-2022 Albumin/Globulin [Mass ratio] 1.6 {ratio} [facility] Serum or plasma alkaline lalo sphatase measurement (enzymatic activity/volume)Ordered By: Ajit Pettit on 11-05-2022 ALP [Catalytic activity/Vol] 52 U/L 32-92 [facility] Serum or plasma anion gap de terminationOrdered By: Ajit Pettit on 11-05-2022 Anion gap [Moles/Vol] 14.2 mmol/L 6.0-15.0 [facility] Serum or plasma aspartate am inotransferase measurement (enzymatic activity/volume)Ordered By: Ajit Pettit on 11-05-2022 AST [Catalytic activity/Vol] 20 U/L 10-42 [facility] Serum or plasma calcium ashwini urement (mass/volume)Ordered By: Ajit Pettit on 11-05-2022 Calcium [Mass/Vol] 9.3 mg/dL 8.2-10.2 [facility] Serum or plasma chloride jett surement (moles/volume)Ordered By: Ajit Pettit on 11-05-2022 Chloride [Moles/Vol] 99 mmol/L 95-114 [facility] Serum or plasma glucose ashwini urement (mass/volume)Ordered By: Ajit Pettit on 11-05-2022 Glucose [Mass/Vol] 96 mg/dL 70-100 [facility] Comment on above: ADA recommended refe rence rangeRandom Glucose Reference Range is dependent on time and content of last meal. Glucose of more than 200 mg/dL in a nonstressed, ambulatory subject supports the diagnosis of Diabetes Mellitus. Serum or plasma high density lipoprotein (HDL) cholesterol measurementOrdered By: Ajit Pettit on 11-05-2022 Cholesterol in HDL [Mass/Vol] 42 mg/dL 35-85 [facility] Comment on above: HDL CHOL ATP-III CLA SSIFICATION Cardiovascular RiskHDL > or equal to 60 mg/dL LOWHDL < 40 mg/dL HIGH Serum or plasma potassium me asurement (moles/volume)Ordered By: Ajit Pettit on 11-05-2022 Potassium [Moles/Vol] 4.3 mmol/L 3.5-5.1 [facility] Serum or plasma sodium measu rement (moles/volume)Ordered By: Ajit Pettit on 11-05-2022 Sodium [Moles/Vol] 132 mmol/L 136-146 [facility] Serum or plasma total biliru bin measurement (mass/volume)Ordered By: Ajit Pettit on 11-05-2022 Bilirubin [Mass/Vol] 0.3 mg/dL 0.3-1.2 [facility] Serum or plasma total carbon dioxide measurement (moles/volume)Ordered By: Ajit Pettit on 11-05-2022 CO2 [Moles/Vol] 23.1 mmol/L 22.0-30.0 [facility] Serum or plasma total choles terol/high density lipoprotein (HDL) cholesterol mass ratOrdered By: Ajit Pettit on 11-05-2022 Cholesterol.total/Suellen sterol in HDL [Mass ratio] 4.1 {ratio} <5.0 [facility] Serum or plasma urea nitroge n measurement (mass/volume)Ordered By: Ajit Pettit on 11-05-2022 Urea nitrogen [Mass/Vol] 7 mg/dL 9-23 [facility] TSH DL <= 0.005 mIU/L QnOrde red By: Ajit Pettit on 11-05-2022 TSH Qn 4.07 m[IU]/L 0.45-5.33 [facility] Triglyceride [Mass/volume] i n Serum or PlasmaOrdered By: Ajit Pettit on 11-05-2022 Triglyceride [Mass/Vol] 330 mg/dL 35-149 [facility] Comment on above: TRIG ATP III CLASSIF ICATIONTRIG less than 150 mg/dL NormalTRIG 150-199 mg/dL Borderline highTRIG 200-500 mg/dL High TRIG greater than 500 mg/dL Very highStandard traceable to the Center for Disease Conrtrol and Prevention (CDC) test method. Urine culture routineOrdered By: Ajit Pettit on 11-05-2022 Bacteria identified Cx Nom (U) No Growth 2 Days [facility] Vaginal fluid Atopobium vagi rich DNA detection by probe and target amplification methoOrdered By: Ajit Pettit on 11-05-2022 A. vaginae DNA NAYELY+probe Ql (Vag fld) Low - 0 Score . [facility] Vaginal fluid Megasphaera sp ecies type 1 DNA detection by probe and target amplificatOrdered By: Ajit Pettit on 11-05-2022 Megasphaera sp type 1 DNA NAYELY+probe Ql (Vag fld) Low - 0 Score . [facility] Comment on above: Calculate total [...] (Vag fld) Low - 0 Score . [facility] WBC Auto (Bld) [#/Vol]Ordere d By: Ajit Pettit on 11-05-2022 WBC (Bld) [#/Vol] 13.7 10*3/uL 3.8-11.6 [facility] Basophils Auto (Bld) [#/Vol] Ordered By: Ajit Pettit on 07-08-2022 Basophils (Bld) [#/Vol] 0.1 10*3/uL 0.0-0.2 [facility] Basophils/100 WBC Auto (Bld) Ordered By: Ajit Pettit on 07-08-2022 Basophils/100 WBC (Bld) 0.4 % . [facility] Blood hemoglobin measurement (mass/volume)Ordered By: Ajit Pettit on 07-08-2022 Hemoglobin (Bld) [Mass/Vol] 12.7 g/dL 11.8-15.4 [facility] Blood leukocytes automated c ount (number/volume)Ordered By: Ajit Pettit on 07-08-2022 WBC (Bld) [#/Vol] 14.3 10*3/uL 4.5-11.0 [facility] Body fluid albumin measureme nt (mass/volume)Ordered By: Ajit Pettit on 07-08-2022 Albumin (Body fld) [Mass/Vol] 3.6 g/dL 3.2-5.5 [facility] Creatinine and Glomerular fi ltration rate.predicted panel (S/P/Bld)Ordered By: Ajit Pettit on 07-08-2022 Creatinine [Mass/Vol] 0.66 mg/dL 0.44-1.03 [facility] Eosinophils Auto (Bld) [#/Vo l]Ordered By: Ajit Pettit on 07-08-2022 Eosinophils (Bld) [#/Vol] 0.2 10*3/uL 0.0-0.45 [facility] Eosinophils/100 WBC Auto (Bl d)Ordered By: Ajit Pettit on 07-08-2022 Eosinophils/100 WBC (Bld) 1.2 % . [facility] Erythrocyte distribution wid th Auto (RBC) [Ratio]Ordered By: Ajit Pettit on 07-08-2022 Erythrocyte distribution width (RBC) [Ratio] 13.5 % 11.9-15.3 [facility] Estimated glomerular filtrat ion rate (GFR) non- AmericanOrdered By: Ajit Pettit on 07-08-2022 GFR/1.73 sq M.predicted among non-blacks MDRD (S/P/Bld) [Vol rate/Area] > 60 mL/Min [facility] Globulin Calc (S) [Mass/Vol] Ordered By: Ajit Pettit on 07-08-2022 Globulin (S) [Mass/Vol] 2.4 g/dL [facility] Hematocrit Auto (Bld) [Volum e fraction]Ordered By: Ajit Pettit on 07-08-2022 Hematocrit (Bld) [Volume fraction] 38.9 % 34.0-46.4 [facility] Laboratory - Hematology and Cell countsOrdered By: Ajit Pettit on 07-08-2022 Nucleated RBC/100 WBC (Bld) [Ratio] 0.0 % 0-0.5 [facility] Lymphocytes Auto (Bld) [#/Vo l]Ordered By: Ajit Pettit on 07-08-2022 Lymphocytes (Bld) [#/Vol] 4.5 10*3/uL 1.00-4.8 [facility] Lymphocytes/100 WBC Auto (Bl d)Ordered By: Ajit Pettit on 07-08-2022 Lymphocytes/100 WBC (Bld) 31.2 % . [facility] MCH Auto (RBC) [Entitic mass ]Ordered By: Ajit Pettit on 07-08-2022 MCH (RBC) [Entitic mass] 29.7 pg 24.7-34.3 [facility] MCHC Auto (RBC) [Mass/Vol]Or dered By: Ajit Pettit on 07-08-2022 MCHC (RBC) [Mass/Vol] 32.7 g/dL 32.0-35.0 [facility] MCV Auto (RBC) [Entitic vol] Ordered By: Ajit Pettit on 07-08-2022 MCV (RBC) [Entitic vol] 90.8 fL 80-100 [facility] Monocytes Auto (Bld) [#/Vol] Ordered By: Ajit Millanc on 07-08-2022 Monocytes (Bld) [#/Vol] 1.1 10*3/uL 0.0-0.8 [facility] Monocytes/100 WBC Auto (Bld) Ordered By: Ajit Millanc on 07-08-2022 Monocytes/100 WBC (Bld) 7.8 % . [facility] Neutrophils Auto (Bld) [#/Vo l]Ordered By: Ajit Pettit on 07-08-2022 Neutrophils (Bld) [#/Vol] 8.5 10*3/uL 1.8-7.7 [facility] Neutrophils/100 WBC Auto (Bl d)Ordered By: Ajit Pettit on 07-08-2022 Neutrophils/100 WBC (Bld) 59.4 % . [facility] No Panel InformationOrdered By: Ajit Pettit on 07-08-2022 Estimated GFR () > 60 mL/Min [facility] Comment on above: GFR estimated refere nce range: According to KDOQI guidelines, <60 ml/min/1.73m2 is sufficient to diagnose a patient with chronic kidney disease. Pharmacy Creatinine Clearance (Chem N/A [facility] Platelet mean volume Auto (B ld) [Entitic vol]Ordered By: Ajit Pettit on 07-08-2022 Platelet mean volume (Bld) [Entitic vol] 8.3 fL 6.3-10.7 [facility] Platelets Auto (Bld) [#/Vol] Ordered By: Ajit Pettit on 07-08-2022 Platelets (Bld) [#/Vol] 332 10*3/uL 150-450 [facility] Protein [Mass/volume] in Ser um or PlasmaOrdered By: Ajit Pettit on 07-08-2022 Protein [Mass/Vol] 6.0 g/dL 6.1-7.9 [facility] RBC Auto (Bld) [#/Vol]Ordere d By: Ajit Pettit on 07-08-2022 RBC (Bld) [#/Vol] 4.29 10*6/uL 3.60-5.00 [facility] Serum or plasma alanine george otransferase measurement without P-5'-P (enzymatic activiOrdered By: Ajit Pettit on 07-08-2022 ALT No additional P-5'-P [Catalytic activity/Vol] 26 U/L 10-60 [facility] Serum or plasma albumin/glob ulin mass ratioOrdered By: Ajit Pettit on 07-08-2022 Albumin/Globulin [Mass ratio] 1.5 {ratio} [facility] Serum or plasma alkaline lalo sphatase measurement (enzymatic activity/volume)Ordered By: Ajit Pettit on 07-08-2022 ALP [Catalytic activity/Vol] 46 U/L 32-92 [facility] Serum or plasma anion gap de terminationOrdered By: Ajit Pettit on 07-08-2022 Anion gap [Moles/Vol] 15.1 mmol/L 6.0-15.0 [facility] Serum or plasma aspartate am inotransferase measurement (enzymatic activity/volume)Ordered By: Ajit Pettit on 07-08-2022 AST [Catalytic activity/Vol] 31 U/L 10-42 [facility] Serum or plasma calcium ashwini urement (mass/volume)Ordered By: Ajit Pettit on 07-08-2022 Calcium [Mass/Vol] 9.3 mg/dL 8.2-10.2 [facility] Serum or plasma chloride jett surement (moles/volume)Ordered By: Ajit Pettit on 07-08-2022 Chloride [Moles/Vol] 101 mmol/L 95-114 [facility] Serum or plasma glucose ashwini urement (mass/volume)Ordered By: Ajit Pettit on 07-08-2022 Glucose [Mass/Vol] 129 mg/dL 70-100 [facility] Comment on above: ADA recommended refe rence rangeRandom Glucose Reference Range is dependent on time and content of last meal. Glucose of more than 200 mg/dL in a nonstressed, ambulatory subject supports the diagnosis of Diabetes Mellitus. Serum or plasma potassium me asurement (moles/volume)Ordered By: Ajit Pettit on 07-08-2022 Potassium [Moles/Vol] 5.0 mmol/L 3.5-5.1 [facility] Serum or plasma sodium measu rement (moles/volume)Ordered By: Ajit Pettit on 07-08-2022 Sodium [Moles/Vol] 135 mmol/L 136-146 [facility] Serum or plasma total biliru bin measurement (mass/volume)Ordered By: Ajit Pettit on 07-08-2022 Bilirubin [Mass/Vol] 0.5 mg/dL 0.3-1.2 [facility] Serum or plasma total carbon dioxide measurement (moles/volume)Ordered By: Ajit Pettit on 07-08-2022 CO2 [Moles/Vol] 23.9 mmol/L 22.0-30.0 [facility] Serum or plasma urea nitroge n measurement (mass/volume)Ordered By: Ajit Pettit on 07-08-2022 Urea nitrogen [Mass/Vol] 12 mg/dL 06-26 [facility] TSH DL <= 0.005 mIU/L QnOrde red By: Ajit Pettit on 06-24-2022 TSH Qn 4.14 m[IU]/L 0.45-5.33 [facility] Basophils Auto (Bld) [#/Vol] Ordered By: Ajit Pettit on 06-02-2022 Basophils (Bld) [#/Vol] 0.1 10*3/uL 0.0-0.2 [facility] Basophils/100 WBC Auto (Bld) Ordered By: Ajit Pettit on 06-02-2022 Basophils/100 WBC (Bld) 0.9 % . [facility] Blood hemoglobin measurement (mass/volume)Ordered By: Ajit Pettit on 06-02-2022 Hemoglobin (Bld) [Mass/Vol] 12.9 g/dL 11.8-15.4 [facility] Blood leukocytes automated c ount (number/volume)Ordered By: Ajit Pettit on 06-02-2022 WBC (Bld) [#/Vol] 16.8 10*3/uL 4.5-11.0 [facility] Body fluid albumin measureme nt (mass/volume)Ordered By: Ajit Pettit on 06-02-2022 Albumin (Body fld) [Mass/Vol] 3.5 g/dL 3.2-5.5 [facility] Creatinine and Glomerular fi ltration rate.predicted panel (S/P/Bld)Ordered By: Ajit Pettit on 06-02-2022 Creatinine [Mass/Vol] 0.58 mg/dL 0.44-1.03 [facility] Eosinophils Auto (Bld) [#/Vo l]Ordered By: Ajit Pettit on 06-02-2022 Eosinophils (Bld) [#/Vol] 0.1 10*3/uL 0.0-0.45 [facility] Eosinophils/100 WBC Auto (Bl d)Ordered By: Ajit Pettit on 06-02-2022 Eosinophils/100 WBC (Bld) 0.7 % . [facility] Erythrocyte distribution wid th Auto (RBC) [Ratio]Ordered By: Ajit Pettit on 06-02-2022 Erythrocyte distribution width (RBC) [Ratio] 13.3 % 11.9-15.3 [facility] Estimated glomerular filtrat ion rate (GFR) non- AmericanOrdered By: Ajit Pettit on 06-02-2022 GFR/1.73 sq M.predicted among non-blacks MDRD (S/P/Bld) [Vol rate/Area] > 60 mL/Min [facility] Globulin Calc (S) [Mass/Vol] Ordered By: Ajit Pettit on 06-02-2022 Globulin (S) [Mass/Vol] 2.5 g/dL [facility] Hematocrit Auto (Bld) [Volum e fraction]Ordered By: Ajit Pettit on 06-02-2022 Hematocrit (Bld) [Volume fraction] 38.8 % 34.0-46.4 [facility] Laboratory - Hematology and Cell countsOrdered By: Ajit Pettit on 06-02-2022 Nucleated RBC/100 WBC (Bld) [Ratio] 0.0 % 0-0.5 [facility] Lymphocytes Auto (Bld) [#/Vo l]Ordered By: Ajit Pettit on 06-02-2022 Lymphocytes (Bld) [#/Vol] 3.4 10*3/uL 1.00-4.8 [facility] Lymphocytes/100 WBC Auto (Bl d)Ordered By: Ajit Pettit on 06-02-2022 Lymphocytes/100 WBC (Bld) 20.3 % . [facility] MCH Auto (RBC) [Entitic mass ]Ordered By: Ajit Pettit on 06-02-2022 MCH (RBC) [Entitic mass] 30.3 pg 24.7-34.3 [facility] MCHC Auto (RBC) [Mass/Vol]Or dered By: Ajit Pettit on 06-02-2022 MCHC (RBC) [Mass/Vol] 33.2 g/dL 32.0-35.0 [facility] MCV Auto (RBC) [Entitic vol] Ordered By: Ajit Pettit on 06-02-2022 MCV (RBC) [Entitic vol] 91.1 fL 80-100 [facility] Monocytes Auto (Bld) [#/Vol] Ordered By: Ajit Pettit on 06-02-2022 Monocytes (Bld) [#/Vol] 1.2 10*3/uL 0.0-0.8 [facility] Monocytes/100 WBC Auto (Bld) Ordered By: Ajit Pettit on 06-02-2022 Monocytes/100 WBC (Bld) 7.2 % . [facility] Neutrophils Auto (Bld) [#/Vo l]Ordered By: Ajit Pettit on 06-02-2022 Neutrophils (Bld) [#/Vol] 11.9 10*3/uL 1.8-7.7 [facility] Neutrophils/100 WBC Auto (Bl d)Ordered By: Ajit Pettit on 06-02-2022 Neutrophils/100 WBC (Bld) 70.9 % . [facility] No Panel InformationOrdered By: Ajit Pettit on 06-02-2022 Estimated GFR () > 60 mL/Min [facility] Comment on above: GFR estimated refere nce range: According to KDOQI guidelines, <60 ml/min/1.73m2 is sufficient to diagnose a patient with chronic kidney disease. Pharmacy Creatinine Clearance (Chem N/A [facility] Platelet mean volume Auto (B ld) [Entitic vol]Ordered By: Ajit Pettit on 06-02-2022 Platelet mean volume (Bld) [Entitic vol] 9.2 fL 6.3-10.7 [facility] Platelets Auto (Bld) [#/Vol] Ordered By: Ajit Pettit on 06-02-2022 Platelets (Bld) [#/Vol] 313 10*3/uL 150-450 [facility] Protein [Mass/volume] in Ser um or PlasmaOrdered By: Ajit Pettit on 06-02-2022 Protein [Mass/Vol] 6.0 g/dL 6.1-7.9 [facility] RBC Auto (Bld) [#/Vol]Ordere d By: Ajit Pettit on 06-02-2022 RBC (Bld) [#/Vol] 4.26 10*6/uL 3.60-5.00 [facility] Serum or plasma alanine george otransferase measurement without P-5'-P (enzymatic activiOrdered By: Ajit Pettit on 06-02-2022 ALT No additional P-5'-P [Catalytic activity/Vol] 20 U/L 10-60 [facility] Serum or plasma albumin/glob ulin mass ratioOrdered By: Ajit Pettit on 06-02-2022 Albumin/Globulin [Mass ratio] 1.4 {ratio} [facility] Serum or plasma alkaline lalo sphatase measurement (enzymatic activity/volume)Ordered By: Ajit Pettit on 06-02-2022 ALP [Catalytic activity/Vol] 48 U/L 32-92 [facility] Serum or plasma anion gap de terminationOrdered By: Ajit Pettit on 06-02-2022 Anion gap [Moles/Vol] 15.8 mmol/L 6.0-15.0 [facility] Serum or plasma aspartate am inotransferase measurement (enzymatic activity/volume)Ordered By: Ajit Pettit on 06-02-2022 AST [Catalytic activity/Vol] 21 U/L 10-42 [facility] Serum or plasma calcium ashwini urement (mass/volume)Ordered By: Ajit Pettit on 06-02-2022 Calcium [Mass/Vol] 9.1 mg/dL 8.2-10.2 [facility] Serum or plasma chloride jett surement (moles/volume)Ordered By: Ajit Pettit on 06-02-2022 Chloride [Moles/Vol] 100 mmol/L 95-114 [facility] Serum or plasma glucose ashwini urement (mass/volume)Ordered By: Ajit Pettit on 06-02-2022 Glucose [Mass/Vol] 141 mg/dL 70-100 [facility] Comment on above: ADA recommended [...] on 06-02-2022 Potassium [Moles/Vol] 4.3 mmol/L 3.5-5.1 [facility] Serum or plasma sodium measu rement (moles/volume)Ordered By: Ajit Ptetit on 06-02-2022 Sodium [Moles/Vol] 132 mmol/L 136-146 [facility] Serum or plasma total biliru bin measurement (mass/volume)Ordered By: Ajit Pettit on 06-02-2022 Bilirubin [Mass/Vol] 0.5 mg/dL 0.3-1.2 [facility] Serum or plasma total carbon dioxide measurement (moles/volume)Ordered By: Ajit Pettit on 06-02-2022 CO2 [Moles/Vol] 20.5 mmol/L 22.0-30.0 [facility] Serum or plasma urea nitroge n measurement (mass/volume)Ordered By: Ajit Pettit on 06-02-2022 Urea nitrogen [Mass/Vol] 12 mg/dL 9-23 [facility] TSH DL <= 0.005 mIU/L QnOrde red By: Ajit Pettit on 06-02-2022 TSH Qn 2.06 m[IU]/L 0.45-5.33 [facility] Basophils Auto (Bld) [#/Vol] Ordered By: Jasmin Velázquez on 05-27-2022 Basophils (Bld) [#/Vol] 0.1 10*3/uL 0.0-0.2 [facility] Basophils/100 WBC Auto (Bld) Ordered By: Jasmin Velázquez on 05-27-2022 Basophils/100 WBC (Bld) 0.6 % . [facility] Blood hemoglobin measurement (mass/volume)Ordered By: Jasmin Velázquez on 05-27-2022 Hemoglobin (Bld) [Mass/Vol] 13.1 g/dL 11.8-15.4 [facility] Blood leukocytes automated c ount (number/volume)Ordered By: Jasmin Velázquez on 05-27-2022 WBC (Bld) [#/Vol] 13.2 10*3/uL 4.5-11.[address] [facility] [address] biopsyOrdered By: Jasmin noel on 05-27-2022 Transferrin [Mass/Vol] 307 mg/dL 180-380 [facility] Eosinophils Auto (Bld) [#/Vo l]Ordered By: Jasmin Velázquez on 05-27-2022 Eosinophils (Bld) [#/Vol] 0.1 10*3/uL 0.0-0.45 [facility] Eosinophils/100 WBC Auto (Bl d)Ordered By: Jasmin Velázquez on 05-27-2022 Eosinophils/100 WBC (Bld) 1.0 % . [facility] Erythrocyte distribution wid th Auto (RBC) [Ratio]Ordered By: Jasmin Velázquez on 05-27-2022 Erythrocyte distribution width (RBC) [Ratio] 13.5 % 11.9-15.3 [facility] Ferritin [Mass/volume] in Se rum or PlasmaOrdered By: Jasmin Velázquez on 05-27-2022 Ferritin [Mass/Vol] 49.6 ng/mL 11-306.8 [facility] Hematocrit Auto (Bld) [Volum e fraction]Ordered By: Jasmin Velázquez on 05-27-2022 Hematocrit (Bld) [Volume fraction] 40.1 % 34.0-46.4 [facility] Iron [Mass/volume] in Serum or PlasmaOrdered By: Jasmin Velázquez on 05-27-2022 Iron [Mass/Vol] 50 ug/dL 40-150 [facility] Iron binding capacity [Mass/ volume] in Serum or PlasmaOrdered By: Jasmin Velázquez on 05-27-2022 Iron binding capacity [Mass/Vol] 430 ug/dL 255-450 [facility] Iron saturation [Mass Fracti on] in Serum or PlasmaOrdered By: Jasmin Velázquez on 05-27-2022 Iron saturation [Mass fraction] 11.0 % 20-50 [facility] Laboratory - Hematology and Cell countsOrdered By: Jasmin Velázquez on 05-27-2022 Nucleated RBC/100 WBC (Bld) [Ratio] 0.1 % 0-0.5 [facility] Lymphocytes Auto (Bld) [#/Vo l]Ordered By: Jasmin Velázquez on 05-27-2022 Lymphocytes (Bld) [#/Vol] 3.3 10*3/uL 1.00-4.8 [facility] Lymphocytes/100 WBC Auto (Bl d)Ordered By: Jasmin Velázquez on 05-27-2022 Lymphocytes/100 WBC (Bld) 24.8 % . [facility] MCH Auto (RBC) [Entitic mass ]Ordered By: Jasmin Velázquez on 05-27-2022 MCH (RBC) [Entitic mass] 30.0 pg 24.7-34.3 [facility] MCHC Auto (RBC) [Mass/Vol]Or dered By: Jasmin Velázquez on 05-27-2022 MCHC (RBC) [Mass/Vol] 32.7 g/dL 32.0-35.0 [facility] MCV Auto (RBC) [Entitic vol] Ordered By: Jasmin Velázquez on 05-27-2022 MCV (RBC) [Entitic vol] 91.5 fL 80-100 [facility] Monocytes Auto (Bld) [#/Vol] Ordered By: Jasmin Velázquez on 05-27-2022 Monocytes (Bld) [#/Vol] 1.0 10*3/uL 0.0-0.8 [facility] Monocytes/100 WBC Auto (Bld) Ordered By: Jasmin Velázquez on 05-27-2022 Monocytes/100 WBC (Bld) 7.6 % . [facility] Neutrophils Auto (Bld) [#/Vo l]Ordered By: Jasmin Velázquez on 05-27-2022 Neutrophils (Bld) [#/Vol] 8.7 10*3/uL 1.8-7.7 [facility] Neutrophils/100 WBC Auto (Bl d)Ordered By: Jasmin Velázquez on 05-27-2022 Neutrophils/100 WBC (Bld) 66.0 % . [facility] No Panel InformationOrdered By: Jasmin Velázquez on 05-27-2022 BCR/abl See comment [facility] Comment on above: See report. Scanned copy available in EMR. Platelet mean volume Auto (B ld) [Entitic vol]Ordered By: Jasmin Velázquez on 05-27-2022 Platelet mean volume (Bld) [Entitic vol] 8.8 fL 6.3-10.7 [facility] Platelets Auto (Bld) [#/Vol] Ordered By: Jasmin Velázquez on 05-27-2022 Platelets (Bld) [#/Vol] 284 10*3/uL 150-450 [facility] RBC Auto (Bld) [#/Vol]Ordere d By: Jasmin Velázquez on 05-27-2022 RBC (Bld) [#/Vol] 4.38 10*6/uL 3.60-5.00 [facility] Basophils Auto (Bld) [#/Vol] Ordered By: Ajit Pettit on 05-07-2022 Basophils (Bld) [#/Vol] 0.1 10*3/uL 0.0-0.2 [facility] Basophils/100 WBC Auto (Bld) Ordered By: Ajit Pettit on 05-07-2022 Basophils/100 WBC (Bld) 0.6 % . [facility] Blood hemoglobin measurement (mass/volume)Ordered By: Ajit Pettit on 05-07-2022 Hemoglobin (Bld) [Mass/Vol] 13.4 g/dL 11.8-15.4 [facility] Blood leukocytes automated c ount (number/volume)Ordered By: Ajit Pettit on 05-07-2022 WBC (Bld) [#/Vol] 16.2 10*3/uL 4.5-11.0 [facility] Eosinophils Auto (Bld) [#/Vo l]Ordered By: Ajit Pettit on 05-07-2022 Eosinophils (Bld) [#/Vol] 0.1 10*3/uL 0.0-0.45 [facility] Eosinophils/100 WBC Auto (Bl d)Ordered By: Ajit Pettit on 05-07-2022 Eosinophils/100 WBC (Bld) 0.9 % . [facility] Erythrocyte distribution wid th Auto (RBC) [Ratio]Ordered By: Ajit Pettit on 05-07-2022 Erythrocyte distribution width (RBC) [Ratio] 13.6 % 11.9-15.3 [facility] Hematocrit Auto (Bld) [Volum e fraction]Ordered By: Ajit Pettit on 05-07-2022 Hematocrit (Bld) [Volume fraction] 40.5 % 34.0-46.4 [facility] Laboratory - Hematology and Cell countsOrdered By: Ajit Pettit on 05-07-2022 Nucleated RBC/100 WBC (Bld) [Ratio] 0.0 % 0-0.5 [facility] Lymphocytes Auto (Bld) [#/Vo l]Ordered By: Ajit Pettit on 05-07-2022 Lymphocytes (Bld) [#/Vol] 4.7 10*3/uL 1.00-4.8 [facility] Lymphocytes/100 WBC Auto (Bl d)Ordered By: Ajit Pettit on 05-07-2022 Lymphocytes/100 WBC (Bld) 28.9 % . [facility] MCH Auto (RBC) [Entitic mass ]Ordered By: Ajit Pettit on 05-07-2022 MCH (RBC) [Entitic mass] 30.7 pg 24.7-34.3 [facility] MCHC Auto (RBC) [Mass/Vol]Or dered By: Ajit Pettit on 05-07-2022 MCHC (RBC) [Mass/Vol] 33.2 g/dL 32.0-35.0 [facility] MCV Auto (RBC) [Entitic vol] Ordered By: Ajit Pettit on 05-07-2022 MCV (RBC) [Entitic vol] 92.5 fL 80-100 [facility] Monocytes Auto (Bld) [#/Vol] Ordered By: Ajit Pettit on 05-07-2022 Monocytes (Bld) [#/Vol] 1.1 10*3/uL 0.0-0.8 [facility] Monocytes/100 WBC Auto (Bld) Ordered By: Ajit Pettit on 05-07-2022 Monocytes/100 WBC (Bld) 6.8 % . [facility] Neutrophils Auto (Bld) [#/Vo l]Ordered By: Ajit Pettit on 05-07-2022 Neutrophils (Bld) [#/Vol] 10.2 10*3/uL 1.8-7.7 [facility] Neutrophils/100 WBC Auto (Bl d)Ordered By: Ajit Millanc on 05-07-2022 Neutrophils/100 WBC (Bld) 62.8 % . [facility] No Panel InformationOrdered By: Ajit Pettit on 05-07-2022 Platelet Estimate Normal Normal [facility] Platelet Morphology Comment Normal Normal [facility] Platelet mean volume Auto (B ld) [Entitic vol]Ordered By: Ajit Pettit on 05-07-2022 Platelet mean volume (Bld) [Entitic vol] 8.0 fL 6.3-10.7 [facility] Platelets Auto (Bld) [#/Vol] Ordered By: Ajit Pettit on 05-07-2022 Platelets (Bld) [#/Vol] 369 10*3/uL 150-450 [facility] RBC Auto (Bld) [#/Vol]Ordere d By: Ajit Pettit on 05-07-2022 RBC (Bld) [#/Vol] 4.38 10*6/uL 3.60-5.00 [facility] RBC morphologyOrdered By: Cole Pettit on 05-07-2022 RBC morphology finding Nom (Bld) Normal [facility] Bacterial blood cultureOrder ed By: Rod Alvarado on 05-06-2022 Bacteria identified Cx Nom (Bld) NO GROWTH 5 DAYS [facility] Bacteria identified Cx Nom (Bld) NO GROWTH 5 DAYS [facility] Bacterial blood cultureOrder ed By: Ajit Pettit on 05-06-2022 Bacteria identified Cx Nom (Bld) NO GROWTH 5 DAYS [facility] Urine culture routineOrdered By: Ajit Pettit on 05-02-2022 Bacteria identified Cx Nom (U) 2 Days [facility] Activated partial thrombopla stin time (aPTT) in platelet poor plasma by coagulation aOrdered By: Rod Alvarado on 05-01-2022 aPTT Coag (PPP) [Time] 29.2 s 25.1-36.5 [facility] Automated epithelial cells c ount in urine sediment (number/area)Ordered By: Rod Alvarado on 05-01-2022 Epithelial cells Auto (Urine sed) [#/Area] 5-9 [HPF] 0-2 [facility] Automated erythrocytes count in urine sediment (number/area)Ordered By: Rod Alvarado on 05-01-2022 RBC Auto (Urine sed) [#/Area] 1-2 [HPF] 0-4 [facility] Automated leukocytes count i n urine sediment (number/area)Ordered By: Rod Alvarado on 05-01-2022 WBC Auto (Urine sed) [#/Area] 1-2 [HPF] 0-4 [facility] Basophils Auto (Bld) [#/Vol] Ordered By: Rod Alvarado on 05-01-2022 Basophils (Bld) [#/Vol] 0.2 10*3/uL 0.0-0.2 [facility] Basophils Auto (Bld) [#/Vol] Ordered By: Ajit Pettit on 05-01-2022 Basophils (Bld) [#/Vol] 0.1 10*3/uL 0.0-0.2 [facility] Basophils/100 WBC Auto (Bld) Ordered By: Rod Alvarado on 05-01-2022 Basophils/100 WBC (Bld) 1.0 % . [facility] Basophils/100 WBC Auto (Bld) Ordered By: Ajit Pettit on 05-01-2022 Basophils/100 WBC (Bld) 0.7 % . [facility] Bilirubin Auto test strip Ql (U)Ordered By: Rod Alvarado on 05-01-2022 Bilirubin Ql (U) 1+ Negative [facility] Blood hemoglobin measurement (mass/volume)Ordered By: Rod Alvarado on 05-01-2022 Hemoglobin (Bld) [Mass/Vol] 13.1 g/dL 11.8-15.4 [facility] Blood hemoglobin measurement (mass/volume)Ordered By: Ajit Pettit on 05-01-2022 Hemoglobin (Bld) [Mass/Vol] 12.9 g/dL 11.8-15.4 [facility] Blood leukocytes automated c ount (number/volume)Ordered By: Rod Alvarado on 05-01-2022 WBC (Bld) [#/Vol] 15.9 10*3/uL 4.5-11.0 [facility] Blood leukocytes automated c ount (number/volume)Ordered By: Ajit Pettit on 05-01-2022 WBC (Bld) [#/Vol] 14.7 10*3/uL 4.5-11.0 [facility] Body fluid albumin measureme nt (mass/volume)Ordered By: Ajit Pettit on 05-01-2022 Albumin (Body fld) [Mass/Vol] 3.6 g/dL 3.2-5.5 [facility] Creatinine and Glomerular fi ltration rate.predicted panel (S/P/Bld)Ordered By: Rod Alvarado on 05-01-2022 Creatinine [Mass/Vol] 0.58 mg/dL 0.44-1.03 [facility] Creatinine and Glomerular fi ltration rate.predicted panel (S/P/Bld)Ordered By: Ajit Pettit on 05-01-2022 Creatinine [Mass/Vol] 0.58 mg/dL 0.44-1.03 [facility] Eosinophils Auto (Bld) [#/Vo l]Ordered By: Rod Alvarado on 05-01-2022 Eosinophils (Bld) [#/Vol] 0.2 10*3/uL 0.0-0.45 [facility] Eosinophils Auto (Bld) [#/Vo l]Ordered By: Ajit Pettit on 05-01-2022 Eosinophils (Bld) [#/Vol] 0.1 10*3/uL 0.0-0.45 [facility] Eosinophils/100 WBC Auto (Bl d)Ordered By: Rod Alvarado on 05-01-2022 Eosinophils/100 WBC (Bld) 1.0 % . [facility] Eosinophils/100 WBC Auto (Bl d)Ordered By: Ajit Pettit on 05-01-2022 Eosinophils/100 WBC (Bld) 0.9 % . [facility] Erythrocyte distribution wid th Auto (RBC) [Ratio]Ordered By: Rod Alvarado on 05-01-2022 Erythrocyte distribution width (RBC) [Ratio] 13.6 % 11.9-15.3 [facility] Erythrocyte distribution wid th Auto (RBC) [Ratio]Ordered By: Ajit Pettit on 05-01-2022 Erythrocyte distribution width (RBC) [Ratio] 13.6 % 11.9-15.3 [facility] Estimated glomerular filtrat ion rate (GFR) non- AmericanOrdered By: Rod Alvarado on 05-01-2022 GFR/1.73 sq M.predicted among non-blacks MDRD (S/P/Bld) [Vol rate/Area] > 60 mL/Min [facility] Estimated glomerular filtrat ion rate (GFR) non- AmericanOrdered By: Ajit Pettit on 05-01-2022 GFR/1.73 sq M.predicted among non-blacks MDRD (S/P/Bld) [Vol rate/Area] > 60 mL/Min [facility] Globulin Calc (S) [Mass/Vol] Ordered By: Ajit Pettit on 05-01-2022 Globulin (S) [Mass/Vol] 2.6 g/dL [facility] Hematocrit Auto (Bld) [Volum e fraction]Ordered By: Rod Alvarado on 05-01-2022 Hematocrit (Bld) [Volume fraction] 39.0 % 34.0-46.4 [facility] Hematocrit Auto (Bld) [Volum e fraction]Ordered By: Ajit Pettit on 05-01-2022 Hematocrit (Bld) [Volume fraction] 39.0 % 34.0-46.4 [facility] Ketones Auto test strip (U) [Mass/Vol]Ordered By: Rod Alvarado on 05-01-2022 Ketones (U) [Mass/Vol] Trace Negative Fi [facility] Laboratory - Chemistry and C hemistry - challengeOrdered By: Rod Alvarado on 05-01-2022 Lipase [Catalytic activity/Vol] 37.0 U/L 22-51 [facility] Laboratory - CoagulationOrde red By: Rod Alvarado on 05-01-2022 PT Coag (PPP) [Time] 9.6 s 9.0-12.9 [facility] Laboratory - Hematology and Cell countsOrdered By: Rod Alvarado on 05-01-2022 Nucleated RBC/100 WBC (Bld) [Ratio] 0.0 % 0-0.5 [facility] Laboratory - Hematology and Cell countsOrdered By: Ajit Pettit on 05-01-2022 Nucleated RBC/100 WBC (Bld) [Ratio] 0.0 % 0-0.5 [facility] Lymphocytes Auto (Bld) [#/Vo l]Ordered By: Rod Alvarado on 05-01-2022 Lymphocytes (Bld) [#/Vol] 4.3 10*3/uL 1.00-4.8 [facility] Lymphocytes Auto (Bld) [#/Vo l]Ordered By: Ajit Pettit on 05-01-2022 Lymphocytes (Bld) [#/Vol] 3.6 10*3/uL 1.00-4.8 [facility] Lymphocytes/100 WBC Auto (Bl d)Ordered By: Rod Alvarado on 05-01-2022 Lymphocytes/100 WBC (Bld) 26.9 % . [facility] Lymphocytes/100 WBC Auto (Bl d)Ordered By: Ajit Pettit on 05-01-2022 Lymphocytes/100 WBC (Bld) 24.8 % . [facility] MCH Auto (RBC) [Entitic mass ]Ordered By: Rod Alvarado on 05-01-2022 MCH (RBC) [Entitic mass] 30.5 pg 24.7-34.3 [facility] MCH Auto (RBC) [Entitic mass ]Ordered By: Ajit Pettit on 05-01-2022 MCH (RBC) [Entitic mass] 30.5 pg 24.7-34.3 [facility] MCHC Auto (RBC) [Mass/Vol]Or dered By: Rod Alvarado on 05-01-2022 MCHC (RBC) [Mass/Vol] 33.5 g/dL 32.0-35.0 [facility] MCHC Auto (RBC) [Mass/Vol]Or dered By: Ajit Millanc on 05-01-2022 MCHC (RBC) [Mass/Vol] 32.9 g/dL 32.0-35.0 [facility] MCV Auto (RBC) [Entitic vol] Ordered By: Rod Alvarado on 05-01-2022 MCV (RBC) [Entitic vol] 91.0 fL 80-100 [facility] MCV Auto (RBC) [Entitic vol] Ordered By: Ajit Millanc on 05-01-2022 MCV (RBC) [Entitic vol] 92.6 fL 80-100 [facility] Monocytes Auto (Bld) [#/Vol] Ordered By: Rod Alvarado on 05-01-2022 Monocytes (Bld) [#/Vol] 1.1 10*3/uL 0.0-0.8 [facility] Monocytes Auto (Bld) [#/Vol] Ordered By: Ajit Pettit on 05-01-2022 Monocytes (Bld) [#/Vol] 1.1 10*3/uL 0.0-0.8 [facility] Monocytes/100 WBC Auto (Bld) Ordered By: Rod Alvarado on 05-01-2022 Monocytes/100 WBC (Bld) 6.7 % . [facility] Monocytes/100 WBC Auto (Bld) Ordered By: Ajit Pettit on 05-01-2022 Monocytes/100 WBC (Bld) 7.2 % . [facility] Neutrophils Auto (Bld) [#/Vo l]Ordered By: Rod Alvarado on 05-01-2022 Neutrophils (Bld) [#/Vol] 10.3 10*3/uL 1.8-7.7 [facility] Neutrophils Auto (Bld) [#/Vo l]Ordered By: Ajit Pettit on 05-01-2022 Neutrophils (Bld) [#/Vol] 9.8 10*3/uL 1.8-7.7 [facility] Neutrophils/100 WBC Auto (Bl d)Ordered By: Rod Alvarado on 05-01-2022 Neutrophils/100 WBC (Bld) 64.4 % . [facility] Neutrophils/100 WBC Auto (Bl d)Ordered By: Ajit Pettit on 05-01-2022 Neutrophils/100 WBC (Bld) 66.4 % . [facility] No Panel InformationOrdered By: Rod Alvarado on 05-01-2022 Estimated GFR () > 60 mL/Min [facility] Comment on above: GFR estimated refere nce range: According to KDOQI guidelines, <60 ml/min/1.73m2 is sufficient to diagnose a patient with chronic kidney disease. Pharmacy Creatinine Clearance (Chem 128.97 [facility] No Panel InformationOrdered By: Ajit Pettit on 05-01-2022 Estimated GFR () > 60 mL/Min [facility] Comment on above: GFR estimated refere nce range: According to KDOQI guidelines, <60 ml/min/1.73m2 is sufficient to diagnose a patient with chronic kidney disease. Pharmacy Creatinine Clearance (Chem N/A [facility] Platelet mean volume Auto (B ld) [Entitic vol]Ordered By: Rod Alvarado on 05-01-2022 Platelet mean volume (Bld) [Entitic vol] 7.6 fL 6.3-10.7 [facility] Platelet mean volume Auto (B ld) [Entitic vol]Ordered By: Ajit Pettit on 05-01-2022 Platelet mean volume (Bld) [Entitic vol] 8.1 fL 6.3-10.7 [facility] Platelet poor plasma interna tional normalized ratio (INR) by coagulation assay (relatOrdered By: Rod Alvarado on 05-01-2022 INR Coag (PPP) [Relative time] 0.9 {INR} [facility] Comment on above: INR Therapeutic [...] 05-01-2022 Platelets (Bld) [#/Vol] 310 10*3/uL 150-450 [facility] Platelets Auto (Bld) [#/Vol] Ordered By: Ajit Pettit on 05-01-2022 Platelets (Bld) [#/Vol] 284 10*3/uL 150-450 [facility] Protein Auto test strip (U) [Mass/Vol]Ordered By: Rod Alvarado on 05-01-2022 Protein (U) [Mass/Vol] Negative Negative [facility] Protein [Mass/volume] in Ser um or PlasmaOrdered By: Ajit Pettit on 05-01-2022 Protein [Mass/Vol] 6.2 g/dL 6.1-7.9 [facility] RBC Auto (Bld) [#/Vol]Ordere d By: Rod Alvarado on 05-01-2022 RBC (Bld) [#/Vol] 4.29 10*6/uL 3.60-5.00 [facility] RBC Auto (Bld) [#/Vol]Ordere d By: Ajit Pettit on 05-01-2022 RBC (Bld) [#/Vol] 4.22 10*6/uL 3.60-5.00 [facility] Serum or plasma alanine george otransferase measurement without P-5'-P (enzymatic activiOrdered By: Ajit Pettit on 05-01-2022 ALT No additional P-5'-P [Catalytic activity/Vol] 17 U/L 10-60 [facility] Serum or plasma albumin/glob ulin mass ratioOrdered By: Ajit Pettit on 05-01-2022 Albumin/Globulin [Mass ratio] 1.4 {ratio} [facility] Serum or plasma alkaline lalo sphatase measurement (enzymatic activity/volume)Ordered By: Ajit Pettit on 05-01-2022 ALP [Catalytic activity/Vol] 52 U/L 32-92 [facility] Serum or plasma aspartate am inotransferase measurement (enzymatic activity/volume)Ordered By: Ajit Pettit on 05-01-2022 AST [Catalytic activity/Vol] 19 U/L 10-42 [facility] Serum or plasma calcium ashwini urement (mass/volume)Ordered By: Rod Alvarado on 05-01-2022 Calcium [Mass/Vol] 9.0 mg/dL 8.2-10.2 [facility] Serum or plasma calcium ashwini urement (mass/volume)Ordered By: Ajit Pettit on 05-01-2022 Calcium [Mass/Vol] 9.2 mg/dL 8.2-10.2 [facility] Serum or plasma chloride jett surement (moles/volume)Ordered By: Rod Alvarado on 05-01-2022 Chloride [Moles/Vol] 101 mmol/L 95-114 [facility] Serum or plasma chloride jett surement (moles/volume)Ordered By: Ajit Pettit on 05-01-2022 Chloride [Moles/Vol] 100 mmol/L 95-114 [facility] Serum or plasma glucose ashwini urement (mass/volume)Ordered By: Rod Alvarado on 05-01-2022 Glucose [Mass/Vol] 110 mg/dL 70-100 [facility] Comment on above: ADA recommended [...] on 05-01-2022 Glucose [Mass/Vol] 117 mg/dL 70-100 [facility] Comment on above: ADA recommended [...] on 05-01-2022 Potassium [Moles/Vol] 4.4 mmol/L 3.5-5.1 [facility] Serum or plasma potassium me asurement (moles/volume)Ordered By: Ajit Pettit on 05-01-2022 Potassium [Moles/Vol] 4.4 mmol/L 3.5-5.1 [facility] Serum or plasma sodium measu rement (moles/volume)Ordered By: Rod Alvarado on 05-01-2022 Sodium [Moles/Vol] 135 mmol/L 136-146 [facility] Serum or plasma sodium measu rement (moles/volume)Ordered By: Ajit Pettit on 05-01-2022 Sodium [Moles/Vol] 133 mmol/L 136-146 [facility] Serum or plasma total biliru bin measurement (mass/volume)Ordered By: Rod Alvarado on 05-01-2022 Bilirubin [Mass/Vol] 0.7 mg/dL 0.3-1.2 [facility] Serum or plasma total biliru bin measurement (mass/volume)Ordered By: Ajit Pettit on 05-01-2022 Bilirubin [Mass/Vol] 0.4 mg/dL 0.3-1.2 [facility] Serum or plasma total carbon dioxide measurement (moles/volume)Ordered By: Rod Alvarado on 05-01-2022 CO2 [Moles/Vol] 25.9 mmol/L 22.0-30.0 [facility] Serum or plasma total carbon dioxide measurement (moles/volume)Ordered By: Ajit Pettit on 05-01-2022 CO2 [Moles/Vol] 23.1 mmol/L 22.0-30.0 [facility] Serum or plasma urea nitroge n measurement (mass/volume)Ordered By: Rod Alvarado on 05-01-2022 Urea nitrogen [Mass/Vol] 11 mg/dL 06-26 [facility] Serum or plasma urea nitroge n measurement (mass/volume)Ordered By: Ajit Pettit on 05-01-2022 Urea nitrogen [Mass/Vol] 14 mg/dL 06-26 [facility] Urine appearanceOrdered By: Rod Alvarado on 05-01-2022 Appearance (U) Clear Clear [facility] Urine bacteria detection by automated methodOrdered By: Rod Alvarado on 05-01-2022 Bacteria Auto Ql (U) 1+ None Seen [facility] Urine colorOrdered By: Shady Alvarado on 05-01-2022 Color (U) Yellow Yellow [facility] Urine glucose measurement by automated test strip (mass/volume)Ordered By: Rod Alvarado on 05-01-2022 Glucose Auto test strip (U) [Mass/Vol] Normal mg/dL Normal [facility] Urine hemoglobin detection b y automated test stripOrdered By: Rod Alvarado on 05-01-2022 Hemoglobin Auto test strip Ql (U) Negative Negative [facility] Urine lactic acid measuremen tOrdered By: Rod Alvarado on 05-01-2022 Lactate (U) [Moles/Vol] 1.7 mmol/L 0.5-2.2 [facility] Urine lactic acid measuremen tOrdered By: Ajit Pettit on 05-01-2022 Lactate (U) [Moles/Vol] 2.5 mmol/L 0.5-2.2 [facility] Comment on above: Results called at 1022 on 05/01/22 Results calledat 102 2 on 05/01/22 Urine leukocyte esterase det ection by automated test stripOrdered By: Rod Alvarado on 05-01-2022 Leukocyte esterase Auto test strip Ql (U) 2+ Negative [facility] Urine nitrite detection by a utomated test stripOrdered By: Rod Alvarado on 05-01-2022 Nitrite Auto test strip Ql (U) Negative Negative [facility] Urobilinogen Auto test strip (U) [Mass/Vol]Ordered By: Rod Alvarado on 05-01-2022 Urobilinogen (U) [Mass/Vol] Normal mg/dL Normal [facility] pH Auto test strip (U)Ordere d By: Rod Alvarado on 05-01-2022 pH (U) 1.030 [pH] 1.001-1.03 0 [facility] pH (U) 6.0 [pH] 5.0-9.0 [facility] Basophils Auto (Bld) [#/Vol] Ordered By: Ajit Pettit on 04-30-2022 Basophils (Bld) [#/Vol] 0.2 10*3/uL 0.0-0.2 [facility] Basophils/100 WBC Auto (Bld) Ordered By: Ajit Pettit on 04-30-2022 Basophils/100 WBC (Bld) 0.9 % . [facility] Blood hemoglobin measurement (mass/volume)Ordered By: Ajit Pettit on 04-30-2022 Hemoglobin (Bld) [Mass/Vol] 13.9 g/dL 11.8-15.4 [facility] Blood leukocytes automated c ount (number/volume)Ordered By: Ajit Pettit on 04-30-2022 WBC (Bld) [#/Vol] 19.7 10*3/uL 4.5-11.0 [facility] Body fluid albumin measureme nt (mass/volume)Ordered By: Ajit Pettit on 04-30-2022 Albumin (Body fld) [Mass/Vol] 4.1 g/dL 3.2-5.[address] [facility] [address] biopsyOrdered By: Ajit corrales on 04-30-2022 Transferrin [Mass/Vol] 352 mg/dL 180-380 [facility] Cholesterol [Mass/volume] in Serum or PlasmaOrdered By: Ajit Pettit on 04-30-2022 Cholesterol [Mass/Vol] 260 mg/dL 140-200 [facility] Comment on above: Chol less than 200 m g/dl low risk Chol 201-239 mg/dl borderline risk Chol 240 mg/dl and greater high risk Chol less than 200 m g/dl low riskChol 201-239 mg/dl borderline riskChol 240 mg/dl and greater high risk Cholesterol in LDL Calc [Mas s/Vol]Ordered By: Ajit Pettit on 04-30-2022 Cholesterol in LDL [Mass/Vol] 134 mg/dL 0-100 [facility] Comment on above: LDL ATP [...] 04-30-2022 Cholesterol in VLDL [Mass/Vol] 68 mg/dL [facility] Creatinine and Glomerular fi ltration rate.predicted panel (S/P/Bld)Ordered By: Ajit Pettit on 04-30-2022 Creatinine [Mass/Vol] 0.56 mg/dL 0.44-1.03 [facility] Eosinophils Auto (Bld) [#/Vo l]Ordered By: Ajit Pettit on 04-30-2022 Eosinophils (Bld) [#/Vol] 0.2 10*3/uL 0.0-0.45 [facility] Eosinophils/100 WBC Auto (Bl d)Ordered By: Ajit Pettit on 04-30-2022 Eosinophils/100 WBC (Bld) 1.0 % . [facility] Erythrocyte distribution wid th Auto (RBC) [Ratio]Ordered By: Ajit Pettit on 04-30-2022 Erythrocyte distribution width (RBC) [Ratio] 13.5 % 11.9-15.3 [facility] Estimated glomerular filtrat ion rate (GFR) non- AmericanOrdered By: Ajit Pettit on 04-30-2022 GFR/1.73 sq M.predicted among non-blacks MDRD (S/P/Bld) [Vol rate/Area] > 60 mL/Min [facility] Globulin Calc (S) [Mass/Vol] Ordered By: Ajit Pettit on 04-30-2022 Globulin (S) [Mass/Vol] 2.9 g/dL [facility] Hematocrit Auto (Bld) [Volum e fraction]Ordered By: Ajit Pettit on 04-30-2022 Hematocrit (Bld) [Volume fraction] 42.9 % 34.0-46.4 [facility] Iron [Mass/volume] in Serum or PlasmaOrdered By: Ajit Pettit on 04-30-2022 Iron [Mass/Vol] 51 ug/dL 40-150 [facility] Iron binding capacity [Mass/ volume] in Serum or PlasmaOrdered By: Ajit Pettit on 04-30-2022 Iron binding capacity [Mass/Vol] 493 ug/dL 255-450 [facility] Iron saturation [Mass Fracti on] in Serum or PlasmaOrdered By: Ajit Pettit on 04-30-2022 Iron saturation [Mass fraction] 10.0 % 20-50 [facility] Laboratory - Chemistry and C hemistry - challengeOrdered By: Ajit Pettit on 04-30-2022 Cobalamin (Vitamin B12) [Mass/Vol] 472 pg/mL 180-914 [facility] Laboratory - Hematology and Cell countsOrdered By: Ajit Pettit on 04-30-2022 Nucleated RBC/100 WBC (Bld) [Ratio] 0.2 % 0-0.5 [facility] Lymphocytes Auto (Bld) [#/Vo l]Ordered By: Ajit Pettit on 04-30-2022 Lymphocytes (Bld) [#/Vol] 4.1 10*3/uL 1.00-4.8 [facility] Lymphocytes/100 WBC Auto (Bl d)Ordered By: Ajit Pettit on 04-30-2022 Lymphocytes/100 WBC (Bld) 20.8 % . [facility] MCH Auto (RBC) [Entitic mass ]Ordered By: Ajit Pettit on 04-30-2022 MCH (RBC) [Entitic mass] 30.0 pg 24.7-34.3 [facility] MCHC Auto (RBC) [Mass/Vol]Or dered By: Ajit Pettit on 04-30-2022 MCHC (RBC) [Mass/Vol] 32.4 g/dL 32.0-35.0 [facility] MCV Auto (RBC) [Entitic vol] Ordered By: Ajit Pettit on 04-30-2022 MCV (RBC) [Entitic vol] 92.7 fL 80-100 [facility] Monocytes Auto (Bld) [#/Vol] Ordered By: Ajit Pettit on 04-30-2022 Monocytes (Bld) [#/Vol] 1.3 10*3/uL 0.0-0.8 [facility] Monocytes/100 WBC Auto (Bld) Ordered By: Ajit Pettit on 04-30-2022 Monocytes/100 WBC (Bld) 6.8 % . [facility] Neutrophils Auto (Bld) [#/Vo l]Ordered By: Ajit Pettit on 04-30-2022 Neutrophils (Bld) [#/Vol] 13.9 10*3/uL 1.8-7.7 [facility] Neutrophils/100 WBC Auto (Bl d)Ordered By: Ajit Pettit on 04-30-2022 Neutrophils/100 WBC (Bld) 70.5 % . [facility] No Panel InformationOrdered By: Ajit Pettit on 04-30-2022 25-Hydroxy Vitamin D Total 19.9 ng/mL 30-100 [facility] Comment on above: VITAMIN D [...] 96(7):1911-30. Estimated GFR () > 60 mL/Min [facility] Comment on above: GFR estimated refere nce range: According to KDOQI guidelines, <60 ml/min/1.73m2 is sufficient to diagnose a patient with chronic kidney disease. Pharmacy Creatinine Clearance (Chem N/A [facility] Valproic Acid (Depakene) Level 59.8 ug/mL 50.0-100.0 [facility] Comment on above: Last dose: - Platelet mean volume Auto (B ld) [Entitic vol]Ordered By: Ajit Pettit on 04-30-2022 Platelet mean volume (Bld) [Entitic vol] 8.7 fL 6.3-10.7 [facility] Platelets Auto (Bld) [#/Vol] Ordered By: Ajit Pettit on 04-30-2022 Platelets (Bld) [#/Vol] 257 10*3/uL 150-450 [facility] Protein [Mass/volume] in Ser um or PlasmaOrdered By: Ajit Pettit on 04-30-2022 Protein [Mass/Vol] 7.0 g/dL 6.1-7.9 [facility] RBC Auto (Bld) [#/Vol]Ordere d By: Ajit Pettit on 04-30-2022 RBC (Bld) [#/Vol] 4.62 10*6/uL 3.60-5.00 [facility] Serum or plasma alanine george otransferase measurement without P-5'-P (enzymatic activiOrdered By: Ajit Pettit on 04-30-2022 ALT No additional P-5'-P [Catalytic activity/Vol] 20 U/L 10-60 [facility] Serum or plasma albumin/glob ulin mass ratioOrdered By: Ajit Pettit on 04-30-2022 Albumin/Globulin [Mass ratio] 1.4 {ratio} [facility] Serum or plasma alkaline lalo sphatase measurement (enzymatic activity/volume)Ordered By: Ajit Pettit on 04-30-2022 ALP [Catalytic activity/Vol] 54 U/L 32-92 [facility] Serum or plasma aspartate am inotransferase measurement (enzymatic activity/volume)Ordered By: Ajit Pettit on 04-30-2022 AST [Catalytic activity/Vol] 22 U/L 10-42 [facility] Serum or plasma calcium ashwini urement (mass/volume)Ordered By: Ajit Pettit on 04-30-2022 Calcium [Mass/Vol] 9.4 mg/dL 8.2-10.2 [facility] Serum or plasma chloride jett surement (moles/volume)Ordered By: Ajit Pettit on 04-30-2022 Chloride [Moles/Vol] 102 mmol/L 95-114 [facility] Serum or plasma glucose ashwini urement (mass/volume)Ordered By: Ajit Pettit on 04-30-2022 Glucose [Mass/Vol] 115 mg/dL 70-100 [facility] Comment on above: ADA recommended [...] Cholesterol in HDL [Mass/Vol] 57 mg/dL 35-85 [facility] Comment on above: HDL CHOL ATP-III CLA SSIFICATION Cardiovascular Risk HDL > or equal to 60 mg/dL LOW HDL < 40 mg/dL HIGH HDL CHOL ATP-III CLA SSIFICATION Cardiovascular RiskHDL > or equal to 60 mg/dL LOWHDL < 40 mg/dL HIGH Serum or plasma potassium me asurement (moles/volume)Ordered By: Ajit Pettit on 04-30-2022 Potassium [Moles/Vol] 4.8 mmol/L 3.5-5.1 [facility] Serum or plasma sodium measu rement (moles/volume)Ordered By: Ajit Pettit on 04-30-2022 Sodium [Moles/Vol] 135 mmol/L 136-146 [facility] Serum or plasma total biliru bin measurement (mass/volume)Ordered By: Ajit Pettit on 04-30-2022 Bilirubin [Mass/Vol] 0.2 mg/dL 0.3-1.2 [facility] Serum or plasma total carbon dioxide measurement (moles/volume)Ordered By: Ajit Pettit on 04-30-2022 CO2 [Moles/Vol] 24.2 mmol/L 22.0-30.0 [facility] Serum or plasma total choles terol/high density lipoprotein (HDL) cholesterol mass ratOrdered By: Ajit Pettit on 04-30-2022 Cholesterol.total/Suellen sterol in HDL [Mass ratio] 4.6 {ratio} <5.0 [facility] Serum or plasma urea nitroge n measurement (mass/volume)Ordered By: Ajit Pettit on 04-30-2022 Urea nitrogen [Mass/Vol] 12 mg/dL 9- [facility] TSH DL <= 0.005 mIU/L QnOrde red By: Ajit Pettit on 04-30-2022 TSH Qn 2.89 m[IU]/L 0.45-5.33 [facility] Triglyceride [Mass/volume] i n Serum or PlasmaOrdered By: Ajit Pettit on 04-30-2022 Triglyceride [Mass/Vol] 344 mg/dL 35-149 [facility] Comment on above: TRIG ATP III CLASSIF [...] 01-21-2021 Basophils (Bld) [#/Vol] 0.1 10*3/uL 0.0-0.2 [facility] Basophils/100 WBC Auto (Bld) on 01-21-2021 Basophils/100 WBC (Bld) 1.0 % F [facility] Blood hemoglobin measurement (mass/volume)on 01-21-2021 Hemoglobin (Bld) [Mass/Vol] 13.0 g/dL 11.8-15.4 [facility] Blood leukocytes automated c ount (number/volume)on 01-21-2021 WBC (Bld) [#/Vol] 13.2 10*3/uL 4.5-11.0 [facility] Body fluid albumin measureme nt (mass/volume)on 01-21-2021 Albumin (Body fld) [Mass/Vol] 3.7 g/dL 3.2-5.5 [facility] Creatinine and Glomerular fi ltration rate.predicted panel (S/P/Bld)on 01-21-2021 Creatinine [Mass/Vol] 0.67 mg/dL 0.44-1.03 [facility] Eosinophils Auto (Bld) [#/Vo l]on 01-21-2021 Eosinophils (Bld) [#/Vol] 0.1 10*3/uL 0.0-0.45 [facility] Eosinophils/100 WBC Auto (Bl d)on 01-21-2021 Eosinophils/100 WBC (Bld) 0.8 % [facility] Erythrocyte distribution wid th Auto (RBC) [Ratio]on 01-21-2021 Erythrocyte distribution width (RBC) [Ratio] 13.1 % 11.9-15.3 [facility] Estimated glomerular filtrat ion rate (GFR) non- Americanon 01-21-2021 GFR/1.73 sq M.predicted among non-blacks MDRD (S/P/Bld) [Vol rate/Area] > 60 mL/Min [facility] Globulin Calc (S) [Mass/Vol] on 01-21-2021 Globulin (S) [Mass/Vol] 2.7 g/dL [facility] Hematocrit Auto (Bld) [Volum e fraction]on 01-21-2021 Hematocrit (Bld) [Volume fraction] 38.1 % 34.0-46.4 [facility] Laboratory - Chemistry and C hemistry - challengeon 01-21-2021 Cobalamin (Vitamin B12) [Mass/Vol] 341 pg/mL 180-914 [facility] Laboratory - Hematology and Cell countson 01-21-2021 Nucleated RBC/100 WBC (Bld) [Ratio] 0.2 % 0-0.5 [facility] Lymphocytes Auto (Bld) [#/Vo l]on 01-21-2021 Lymphocytes (Bld) [#/Vol] 3.9 10*3/uL 1.00-4.8 [facility] Lymphocytes/100 WBC Auto (Bl d)on 01-21-2021 Lymphocytes/100 WBC (Bld) 29.4 % [facility] MCH Auto (RBC) [Entitic mass ]on 01-21-2021 MCH (RBC) [Entitic mass] 30.6 pg 24.7-34.3 [facility] MCHC Auto (RBC) [Mass/Vol]on 01-21-2021 MCHC (RBC) [Mass/Vol] 34.1 g/dL 32.0-35.0 [facility] MCV Auto (RBC) [Entitic vol] on 01-21-2021 MCV (RBC) [Entitic vol] 89.6 fL 80-100 [facility] Monocytes Auto (Bld) [#/Vol] on 01-21-2021 Monocytes (Bld) [#/Vol] 1.1 10*3/uL 0.0-0.8 [facility] Monocytes/100 WBC Auto (Bld) on 01-21-2021 Monocytes/100 WBC (Bld) 8.6 % [facility] Neutrophils Auto (Bld) [#/Vo l]on 01-21-2021 Neutrophils (Bld) [#/Vol] 8.0 10*3/uL 1.8-7.7 [facility] Neutrophils/100 WBC Auto (Bl d)on 01-21-2021 Neutrophils/100 WBC (Bld) 60.2 % [facility] No Panel Informationon 01-21 25-Hydroxy Vitamin D Total 25.5 ng/mL 30-100 [facility] Comment on above: VITAMIN D STATUS 25( [place])VITAMIN D RANGE (ng/mL) Deficient <20 Insufficient 20 to <30Sufficient 30 to 100Reference: Jovanni ENCINAS,Dominique ARORA, Gillian NINA, et al. Evaluation,treatment, and prevention of vitamin D deficiency; an Endocrine Society clinical practice guideline. JCEM. 2010; 96(7):1911-30. Estimated GFR () > 60 mL/Min [facility] Comment on above: GFR estimated refere nce range: According to KDOQI guidelines, <60 ml/min/1.73m2 is sufficient to diagnose a patient with chronic kidney disease. Pharmacy Creatinine Clearance (Chem N/A [facility] Valproic Acid (Depakene) Level 74.3 ug/mL 50.0-100.0 [facility] Comment on above: Last dose: - Platelet mean volume Auto (B ld) [Entitic vol]on 01-21-2021 Platelet mean volume (Bld) [Entitic vol] 9.1 fL 6.3-10.7 [facility] Platelets Auto (Bld) [#/Vol] on 01-21-2021 Platelets (Bld) [#/Vol] 261 10*3/uL 150-450 [facility] Protein [Mass/volume] in Ser um or Plasmaon 01-21-2021 Protein [Mass/Vol] 6.4 g/dL 6.1-7.9 [facility] RBC Auto (Bld) [#/Vol]on RBC (Bld) [#/Vol] 4.25 10*6/uL 3.60-5.00 [facility] Serum or plasma alanine george otransferase measurement without P-5'-P (enzymatic activion 01-21-2021 ALT No additional P-5'-P [Catalytic activity/Vol] 14 U/L 10-60 [facility] Serum or plasma albumin/glob ulin mass ratioon 01-21-2021 Albumin/Globulin [Mass ratio] 1.4 {ratio} [facility] Serum or plasma alkaline lalo sphatase measurement (enzymatic activity/volume)on 01-21-2021 ALP [Catalytic activity/Vol] 50 U/L 32-92 [facility] Serum or plasma aspartate am inotransferase measurement (enzymatic activity/volume)on 01-21-2021 AST [Catalytic activity/Vol] 17 U/L 10-42 [facility] Serum or plasma calcium ashwini urement (mass/volume)on 01-21-2021 Calcium [Mass/Vol] 9.5 mg/dL 8.2-10.2 [facility] Serum or plasma chloride jett surement (moles/volume)on 01-21-2021 Chloride [Moles/Vol] 96 mmol/L 95-114 [facility] Serum or plasma glucose ashwini urement (mass/volume)on 01-21-2021 Glucose [Mass/Vol] 117 mg/dL 70-100 [facility] Comment on above: ADA recommended refe rence rangeRandom Glucose Reference Range is dependent on time and content of last meal. Glucose of more than 200 mg/dL in a nonstressed, ambulatory subject supports the diagnosis of Diabetes Mellitus. Serum or plasma potassium me asurement (moles/volume)on 01-21-2021 Potassium [Moles/Vol] 4.3 mmol/L 3.5-5.1 [facility] Serum or plasma sodium measu rement (moles/volume)on 01-21-2021 Sodium [Moles/Vol] 132 mmol/L 136-146 [facility] Serum or plasma total biliru bin measurement (mass/volume)on 01-21-2021 Bilirubin [Mass/Vol] 0.3 mg/dL 0.3-1.2 [facility] Serum or plasma total carbon dioxide measurement (moles/volume)on 01-21-2021 CO2 [Moles/Vol] 23.6 mmol/L 22.0-30.0 [facility] Serum or plasma urea nitroge n measurement (mass/volume)on 01-21-2021 Urea nitrogen [Mass/Vol] 13 mg/dL 9-23 [facility] Albumin [Mass/volume] in Ser um or Plasmaon 11-05-2020 Albumin [Mass/Vol] 4.4 g/dL 3.2-5.5 [facility] Automated basophil %on 11-05 Basophils/100 WBC (Bld) 0.7 % [facility] Automated basophil counton 0 11-05-2020 Basophils (Bld) [#/Vol] 0.1 10*3/uL 0.0-0.2 [facility] Automated blood lymphocyte c ount (number/volume)on 11-05-2020 Lymphocytes (Bld) [#/Vol] 3.5 10*3/uL 1.00-4.8 [facility] Automated blood lymphocyte c ount as percentage of total leukocyteson 11-05-2020 Lymphocytes/100 WBC (Bld) 26.0 % [facility] Automated blood monocyte cou nton 11-05-2020 Monocytes (Bld) [#/Vol] 1.2 10*3/uL 0.0-0.8 [facility] Automated blood platelet cou nt (count/volume)on 11-05-2020 Platelets (Bld) [#/Vol] 317 10*3/uL 150-450 [facility] Automated blood platelet jett n volume measurementon 11-05-2020 Platelet mean volume (Bld) [Entitic vol] 8.2 fL 6.3-10.7 [facility] Automated eosinophil %on Eosinophils/100 WBC (Bld) 0.5 % [facility] Automated eosinophil counton 11-05-2020 Eosinophils (Bld) [#/Vol] 0.1 10*3/uL 0.0-0.45 [facility] Automated erythrocyte distri bution width ratioon 11-05-2020 Erythrocyte distribution width (RBC) [Ratio] 13.0 % 11.9-15.3 [facility] Automated erythrocyte mean c orpuscular hemoglobin (mass per erythrocyte)on 11-05-2020 MCH (RBC) [Entitic mass] 30.2 pg 24.7-34.3 [facility] Automated erythrocyte mean c orpuscular hemoglobin concentration measurement (mass/volon 11-05-2020 MCHC (RBC) [Mass/Vol] 33.9 g/dL 32.0-35.0 [facility] Automated erythrocyte mean c orpuscular volumeon 11-05-2020 MCV (RBC) [Entitic vol] 89.1 fL 80-100 F [facility] Automated monocyte %on 11-05 Monocytes/100 WBC (Bld) 8.8 % F [facility] Automated neutrophil %on Neutrophils/100 WBC (Bld) 64.0 % [facility] Blood erythrocytes automated count (number/volume)on 11-05-2020 RBC (Bld) [#/Vol] 4.92 10*6/uL 3.60-5.00 [facility] Blood hemoglobin measurement (mass/volume)on 11-05-2020 Hemoglobin (Bld) [Mass/Vol] 14.9 g/dL 11.8-15.4 [facility] Blood leukocytes automated c ount (number/volume)on 11-05-2020 WBC (Bld) [#/Vol] 13.4 10*3/uL 4.5-11.0 [facility] Blood neutrophil count by au tomated method (number/volume)on 11-05-2020 Neutrophils (Bld) [#/Vol] 8.6 10*3/uL 1.8-7.7 [facility] Estimated glomerular filtrat ion rate (GFR) non- Americanon 11-05-2020 GFR/1.73 sq M predicted among non-blacks MDRD (S/P/Bld) [Vol rate/Area] mL/min/{1.73_m2} [facility] Hematocrit [Volume Fraction] of Blood by Automated counton 11-05-2020 Hematocrit (Bld) [Volume fraction] 43.8 % 34.0-46.4 [facility] Otheron 11-05-2020 GFR/1.73 sq M.predicted MDRD (S/P/Bld) [Vol rate/Area] mL/min/{1.73_m2} [facility] Comment on above: GFR estimated refere nce range: According to KDOQI guidelines, <60 ml/min/1.73m2 is sufficient to diagnose a patient with chronic kidney disease. Nucleated RBC/100 WBC (Bld) [Ratio] 0.2 % 0-0.5 [facility] Creatinine Clearance (Chem N/A [facility] Protein [Mass/volume] in Ser um or Plasmaon 11-05-2020 Protein [Mass/Vol] 7.2 g/dL 6.1-7.9 [facility] Serum globulin measurement b y calculation (mass/volume)on 11-05-2020 Globulin (S) [Mass/Vol] 2.8 g/dL F [facility] Serum glutamate decarboxylas e 65 antibody assay (units/volume)on 11-05-2020 Glutamate decarboxylase 65 Ab Qn (S) <5.0 U/mL [facility] Comment on above: Performed at: [facility] [address] [id number] Director: Ana Lee MD, Phone: [phone] Serum nuclear antibody titer on 11-05-2020 Nuclear Ab (S) [Titer] Negative [facility] Comment on above: Negative <1:80 Borde rline 1:80 Positive >1:80Performed at: [email or web address] [id number] [place] [id number] Director: Daniel Wen PhD, Phone: [phone] Nuclear Ab (S) [Titer] Negative [facility] Comment on above: Negative <1:80 Borde rline 1:80 Positive >1:80Performed at: [facility] [id number] Director: Daniel Wen PhD, Phone: [phone] Serum or plasma alanine george otransferase measurement without P-5'-P (enzymatic activion 11-05-2020 ALT No additional P-5'-P [Catalytic activity/Vol] 22 U/L 10-60 [facility] Serum or plasma albumin/glob ulin mass ratioon 11-05-2020 Albumin/Globulin [Mass ratio] 1.6 {ratio} [facility] Serum or plasma alkaline lalo sphatase measurement (enzymatic activity/volume)on 11-05-2020 ALP [Catalytic activity/Vol] 60 U/L 32-92 [facility] Serum or plasma aspartate am inotransferase measurement (enzymatic activity/volume)on 11-05-2020 AST [Catalytic activity/Vol] 23 U/L 10-42 [facility] Serum or plasma calcium ashwini urement (mass/volume)on 11-05-2020 Calcium [Mass/Vol] 9.6 mg/dL 8.2-10.2 [facility] Serum or plasma chloride jett surement (moles/volume)on 11-05-2020 Chloride [Moles/Vol] 93 mmol/L 95-114 [facility] Serum or plasma creatinine m easurement with calculation of estimated glomerular filtron 11-05-2020 Creatinine [Mass/Vol] 0.62 mg/dL 0.44-1.03 [facility] Serum or plasma glucose ashwini urement (mass/volume)on 11-05-2020 Glucose [Mass/Vol] 82 mg/dL 70-100 [facility] Comment on above: ADA recommended refe rence rangeRandom Glucose Reference Range is dependent on time and content of last meal. Glucose of more than 200 mg/dL in a nonstressed, ambulatory subject supports the diagnosis of Diabetes Mellitus. Serum or plasma potassium me asurement (moles/volume)on 11-05-2020 Potassium [Moles/Vol] 4.3 mmol/L 3.5-5.1 [facility] Serum or plasma sodium measu rement (moles/volume)on 11-05-2020 Sodium [Moles/Vol] 128 mmol/L 136-146 [facility] Serum or plasma total biliru bin measurement (mass/volume)on 11-05-2020 Bilirubin [Mass/Vol] 0.6 mg/dL 0.3-1.2 [facility] Serum or plasma total carbon dioxide measurement (moles/volume)on 11-05-2020 CO2 [Moles/Vol] 22.8 mmol/L 22.0-30.0 [facility] Serum or plasma urea nitroge n measurement (mass/volume)on 11-05-2020 Urea nitrogen [Mass/Vol] 10 mg/dL 9-23 [facility] Automated basophil %on 10-22 Basophils/100 WBC (Bld) 0.6 % [facility] Automated basophil counton 0 10-22-2020 Basophils (Bld) [#/Vol] 0.1 10*3/uL 0.0-0.2 [facility] Automated blood lymphocyte c ount (number/volume)on 10-22-2020 Lymphocytes (Bld) [#/Vol] 2.8 10*3/uL 1.00-4.8 [facility] Automated blood lymphocyte c ount as percentage of total leukocyteson 10-22-2020 Lymphocytes/100 WBC (Bld) 23.6 % [facility] Automated blood monocyte cou nton 10-22-2020 Monocytes (Bld) [#/Vol] 1.0 10*3/uL 0.0-0.8 [facility] Automated blood platelet cou nt (count/volume)on 10-22-2020 Platelets (Bld) [#/Vol] 292 10*3/uL 150-450 [facility] Automated blood platelet jett n volume measurementon 10-22-2020 Platelet mean volume (Bld) [Entitic vol] 9.4 fL 6.3-10.7 [facility] Automated eosinophil %on Eosinophils/100 WBC (Bld) 0.5 % [facility] Automated eosinophil counton 10-22-2020 Eosinophils (Bld) [#/Vol] 0.1 10*3/uL 0.0-0.45 [facility] Automated erythrocyte distri bution width ratioon 10-22-2020 Erythrocyte distribution width (RBC) [Ratio] 12.8 % 11.9-15.3 [facility] Automated erythrocyte mean c orpuscular hemoglobin (mass per erythrocyte)on 10-22-2020 MCH (RBC) [Entitic mass] 29.5 pg 24.7-34.3 [facility] Automated erythrocyte mean c orpuscular hemoglobin concentration measurement (mass/volon 10-22-2020 MCHC (RBC) [Mass/Vol] 32.9 g/dL 32.0-35.0 [facility] Automated erythrocyte mean c orpuscular volumeon 10-22-2020 MCV (RBC) [Entitic vol] 89.6 fL 80-100 F [facility] Automated monocyte %on 10-22 Monocytes/100 WBC (Bld) 8.7 % F [facility] Automated neutrophil %on Neutrophils/100 WBC (Bld) 66.6 % [facility] Blood erythrocytes automated count (number/volume)on 10-22-2020 RBC (Bld) [#/Vol] 4.90 10*6/uL 3.60-5.00 [facility] Blood hemoglobin measurement (mass/volume)on 10-22-2020 Hemoglobin (Bld) [Mass/Vol] 14.5 g/dL 11.8-15.4 [facility] Blood leukocytes automated c ount (number/volume)on 10-22-2020 WBC (Bld) [#/Vol] 12.1 10*3/uL 3.8-11.6 [facility] Blood neutrophil count by au tomated method (number/volume)on 10-22-2020 Neutrophils (Bld) [#/Vol] 8.0 10*3/uL 1.8-7.7 [facility] Body fluid albumin measureme nt (mass/volume)on 10-22-2020 Albumin (Body fld) [Mass/Vol] 4.2 g/dL 3.2-5.5 [facility] Estimated glomerular filtrat ion rate (GFR) non- Americanon 10-22-2020 GFR/1.73 sq M predicted among non-blacks MDRD (S/P/Bld) [Vol rate/Area] mL/min/{1.73_m2} [facility] Hematocrit [Volume Fraction] of Blood by Automated counton 10-22-2020 Hematocrit (Bld) [Volume fraction] 43.9 % 34.0-46.4 [facility] Hematologyon 10-22-2020 Platelets (Bld) [#/Vol] Normal Normal F [facility] Otheron 10-22-2020 25-Hydroxy Vitamin D Total 13.3 ng/mL 30-100 [facility] Comment on above: VITAMIN D STATUS 25( [place])VITAMIN D RANGE (ng/mL) Deficient <20 Insufficient 20 to <30Sufficient 30 to 100Reference: Jovanni MF,Dominique NC, Gillian NINA, et al. Evaluation,treatment, and prevention of vitamin D deficiency; an Endocrine Society clinical practice guideline. JCEM. 2010; 96(7):1911-30. Cobalamin (Vitamin B12) [Mass/Vol] 438 pg/mL 180-914 [facility] GFR/1.73 sq M.predicted MDRD (S/P/Bld) [Vol rate/Area] mL/min/{1.73_m2} [facility] Comment on above: GFR estimated refere nce range: According to KDOQI guidelines, <60 ml/min/1.73m2 is sufficient to diagnose a patient with chronic kidney disease. Nucleated RBC/100 WBC (Bld) [Ratio] 0.0 % 0-0.5 [facility] Creatinine Clearance (Chem N/A [facility] Platelet Morphology Comment Normal Normal [facility] Valproic Acid (Depakene) Level 108.9 ug/mL 50.0-100.0 [facility] Comment on above: Last dose: - Protein [Mass/volume] in Ser um or Plasmaon 10-22-2020 Protein [Mass/Vol] 7.1 g/dL 6.1-7.9 [facility] RBC morphologyon 10-22-2020 RBC morphology finding Nom (Bld) Normal [facility] Serum globulin measurement b y calculation (mass/volume)on 10-22-2020 Globulin (S) [Mass/Vol] 2.9 g/dL F [facility] Serum or plasma alanine george otransferase measurement without P-5'-P (enzymatic activion 10-22-2020 ALT No additional P-5'-P [Catalytic activity/Vol] 13 U/L 10-60 [facility] Serum or plasma albumin/glob ulin mass ratioon 10-22-2020 Albumin/Globulin [Mass ratio] 1.4 {ratio} [facility] Serum or plasma alkaline lalo sphatase measurement (enzymatic activity/volume)on 10-22-2020 ALP [Catalytic activity/Vol] 53 U/L 32-92 [facility] Serum or plasma aspartate am inotransferase measurement (enzymatic activity/volume)on 10-22-2020 AST [Catalytic activity/Vol] 15 U/L 10-42 [facility] Serum or plasma calcium ashwini urement (mass/volume)on 10-22-2020 Calcium [Mass/Vol] 9.6 mg/dL 8.2-10.2 [facility] Serum or plasma chloride jett surement (moles/volume)on 10-22-2020 Chloride [Moles/Vol] 96 mmol/L 95-114 [facility] Serum or plasma creatinine m easurement with calculation of estimated glomerular filtron 10-22-2020 Creatinine [Mass/Vol] 0.54 mg/dL 0.44-1.03 [facility] Serum or plasma glucose ashwini urement (mass/volume)on 10-22-2020 Glucose [Mass/Vol] 96 mg/dL 70-100 [facility] Comment on above: ADA recommended refe rence rangeRandom Glucose Reference Range is dependent on time and content of last meal. Glucose of more than 200 mg/dL in a nonstressed, ambulatory subject supports the diagnosis of Diabetes Mellitus. Serum or plasma potassium me asurement (moles/volume)on 10-22-2020 Potassium [Moles/Vol] 4.7 mmol/L 3.5-5.1 [facility] Serum or plasma sodium measu rement (moles/volume)on 10-22-2020 Sodium [Moles/Vol] 130 mmol/L 136-146 [facility] Serum or plasma total biliru bin measurement (mass/volume)on 10-22-2020 Bilirubin [Mass/Vol] 0.3 mg/dL 0.3-1.2 [facility] Serum or plasma total carbon dioxide measurement (moles/volume)on 10-22-2020 CO2 [Moles/Vol] 22.5 mmol/L 22.0-30.0 [facility] Serum or plasma urea nitroge n measurement (mass/volume)on 10-22-2020 Urea nitrogen [Mass/Vol] 5 mg/dL 9 [facility] Automated basophil %on 09-23 Basophils/100 WBC (Bld) 0.7 % [facility] Automated basophil counton 1 11-24-2019 Basophils (Bld) [#/Vol] 0.1 10*3/uL 0.0-0.2 [facility] Automated blood lymphocyte c ount (number/volume)on 09-23-2020 Lymphocytes (Bld) [#/Vol] 3.3 10*3/uL 1.00-4.8 [facility] Automated blood lymphocyte c ount as percentage of total leukocyteson 09-23-2020 Lymphocytes/100 WBC (Bld) 27.3 % [facility] Automated blood monocyte cou nton 09-23-2020 Monocytes (Bld) [#/Vol] 1.3 10*3/uL 0.0-0.8 [facility] Automated blood platelet cou nt (count/volume)on 09-23-2020 Platelets (Bld) [#/Vol] 299 10*3/uL 150-450 [facility] Automated blood platelet jett n volume measurementon 09-23-2020 Platelet mean volume (Bld) [Entitic vol] 8.3 fL 6.3-10.7 [facility] Automated eosinophil %on Eosinophils/100 WBC (Bld) 0.7 % [facility] Automated eosinophil counton 09-23-2020 Eosinophils (Bld) [#/Vol] 0.1 10*3/uL 0.0-0.45 [facility] Automated erythrocyte distri bution width ratioon 09-23-2020 Erythrocyte distribution width (RBC) [Ratio] 12.8 % 11.9-15.3 [facility] Automated erythrocyte mean c orpuscular hemoglobin (mass per erythrocyte)on 09-23-2020 MCH (RBC) [Entitic mass] 29.8 pg 24.7-34.3 [facility] Automated erythrocyte mean c orpuscular hemoglobin concentration measurement (mass/volon 09-23-2020 MCHC (RBC) [Mass/Vol] 33.4 g/dL 32.0-35.0 [facility] Automated erythrocyte mean c orpuscular volumeon 09-23-2020 MCV (RBC) [Entitic vol] 89.3 fL 80-100 F [facility] Automated monocyte %on 09-23 Monocytes/100 WBC (Bld) 10.8 % F [facility] Automated neutrophil %on Neutrophils/100 WBC (Bld) 60.5 % [facility] Blood erythrocytes automated count (number/volume)on 09-23-2020 RBC (Bld) [#/Vol] 4.72 10*6/uL 3.60-5.00 [facility] Blood hemoglobin measurement (mass/volume)on 09-23-2020 Hemoglobin (Bld) [Mass/Vol] 14.1 g/dL 11.8-15.4 [facility] Blood leukocytes automated c ount (number/volume)on 09-23-2020 WBC (Bld) [#/Vol] 11.9 10*3/uL 3.8-11.6 [facility] Blood neutrophil count by au tomated method (number/volume)on 09-23-2020 Neutrophils (Bld) [#/Vol] 7.2 10*3/uL 1.8-7.7 [facility] Body fluid albumin measureme nt (mass/volume)on 09-23-2020 Albumin (Body fld) [Mass/Vol] 3.9 g/dL 3.2-5.5 [facility] Estimated glomerular filtrat ion rate (GFR) non- Americanon 09-23-2020 GFR/1.73 sq M predicted among non-blacks MDRD (S/P/Bld) [Vol rate/Area] mL/min/{1.73_m2} [facility] Hematocrit [Volume Fraction] of Blood by Automated counton 09-23-2020 Hematocrit (Bld) [Volume fraction] 42.1 % 34.0-46.4 [facility] Otheron 09-23-2020 25-Hydroxy Vitamin D Total 17.0 ng/mL 30-100 [facility] Comment on above: VITAMIN D STATUS 25( [place])VITAMIN D RANGE (ng/mL) Deficient <20 Insufficient 20 to <30Sufficient 30 to 100Reference: Jovanni MF,Dominique NC, Gillian NINA, et al. Evaluation,treatment, and prevention of vitamin D deficiency; an Endocrine Society clinical practice guideline. JCEM. 2010; 96(7):1911-30. GFR/1.73 sq M.predicted MDRD (S/P/Bld) [Vol rate/Area] mL/min/{1.73_m2} [facility] Comment on above: GFR estimated refere nce range: According to KDOQI guidelines, <60 ml/min/1.73m2 is sufficient to diagnose a patient with chronic kidney disease. Nucleated RBC/100 WBC (Bld) [Ratio] 0.1 % 0-0.5 [facility] Creatinine Clearance (Chem N/A [facility] Valproic Acid (Depakene) Level 45.9 ug/mL 50.0-100.0 [facility] Comment on above: Last dose: - Protein [Mass/volume] in Ser um or Plasmaon 09-23-2020 Protein [Mass/Vol] 6.7 g/dL 6.1-7.9 [facility] Serum globulin measurement b y calculation (mass/volume)on 09-23-2020 Globulin (S) [Mass/Vol] 2.8 g/dL F [facility] Serum or plasma alanine george otransferase measurement without P-5'-P (enzymatic activion 09-23-2020 ALT No additional P-5'-P [Catalytic activity/Vol] 15 U/L 10-60 [facility] Serum or plasma albumin/glob ulin mass ratioon 09-23-2020 Albumin/Globulin [Mass ratio] 1.4 {ratio} [facility] Serum or plasma alkaline lalo sphatase measurement (enzymatic activity/volume)on 09-23-2020 ALP [Catalytic activity/Vol] 52 U/L 32-92 [facility] Serum or plasma aspartate am inotransferase measurement (enzymatic activity/volume)on 09-23-2020 AST [Catalytic activity/Vol] 16 U/L 10-42 [facility] Serum or plasma calcium ashwini urement (mass/volume)on 09-23-2020 Calcium [Mass/Vol] 9.2 mg/dL 8.2-10.2 [facility] Serum or plasma chloride jett surement (moles/volume)on 09-23-2020 Chloride [Moles/Vol] 102 mmol/L 95-114 [facility] Serum or plasma creatinine m easurement with calculation of estimated glomerular filtron 09-23-2020 Creatinine [Mass/Vol] 0.67 mg/dL 0.44-1.03 [facility] Serum or plasma glucose ashwini urement (mass/volume)on 09-23-2020 Glucose [Mass/Vol] 122 mg/dL 70-100 [facility] Comment on above: ADA recommended refe rence rangeRandom Glucose Reference Range is dependent on time and content of last meal. Glucose of more than 200 mg/dL in a nonstressed, ambulatory subject supports the diagnosis of Diabetes Mellitus. Serum or plasma potassium me asurement (moles/volume)on 09-23-2020 Potassium [Moles/Vol] 4.8 mmol/L 3.5-5.1 [facility] Serum or plasma sodium measu rement (moles/volume)on 09-23-2020 Sodium [Moles/Vol] 136 mmol/L 136-146 [facility] Serum or plasma total biliru bin measurement (mass/volume)on 09-23-2020 Bilirubin [Mass/Vol] 0.2 mg/dL 0.3-1.2 [facility] Serum or plasma total carbon dioxide measurement (moles/volume)on 09-23-2020 CO2 [Moles/Vol] 23.0 mmol/L 22.0-30.0 [facility] Serum or plasma urea nitroge n measurement (mass/volume)on 09-23-2020 Urea nitrogen [Mass/Vol] 5 mg/dL 06-26 [facility] Lab - Other Lab Result[facility] Lab - Other Lab Results [id number] 06-27-2019 Coding Summary CODING DATE: 019 [facility] STATUS: Home PAYOR: Medicaid HMO ADMIT [...] Piña Revised Date Saved: 06/27/2019 12:43 pm [facility] Provider Orderson 06-27-2019 Provider Orders [id number]#[facility] Orders [id number]#[facility] .Auto Diff 1on 06-26-2019 Auto [place] % 9 % Normal 10-15 [facility] Comment on above: Performed By: #### 1 [id number] #### [facility] (DEFAULT) [address] [place] [id number] Baso Abs# 0.0 x10 Normal 0.0-0.2 [facility] Comment on above: Performed By: #### 1 [id number] #### [facility] (DEFAULT) [address] [place] [address] [id number] Basophils/100 WBC (Bld) 0.3 % Normal 0.2-2.0 [facility] Comment on above: Performed By: #### 1 [id number], [id number] #### [facility] (DEFAULT) [address] [place] [address] [id number] Eos Abs# 0.0 x10 Normal 0.0-0.4 [facility] Comment on above: Performed By: #### 1 [id number] #### [facility] (DEFAULT) [address] [place] [address] 07768 Eosinophils/100 WBC (Bld) 0.4 % Low 0.9-4.0 [facility] Comment on above: Performed By: #### 1 [id number], [id number] #### [facility] (DEFAULT) [address] [place] [address] 05718 Lymphocytes (Bld) [#/Vol] 3.7 x10 High 1.3-2.9 [facility] Comment on above: Performed By: #### 1 [id number], [id number] #### [facility] (DEFAULT) [address] [place] [address] 71743 Lymphocytes/100 WBC (Bld) 29 % Normal 14-48 [facility] Comment on above: Performed By: #### 1 [id number] #### [facility] (DEFAULT) [address] [place] [address] 39072 Elmore Abs# 1.2 x10 High 0.0-0.8 [facility] Comment on above: Performed By: #### 1 [id number], [id number] #### [facility] (DEFAULT) [address] [place] [address] 48849 Neut Abs# 7.7 x10 Normal 1.5-9.2 [facility] Comment on above: Performed By: #### 1 [id number], [id number] #### [facility] (DEFAULT) [address] [place] [address] 85133 Neutrophils/100 WBC (Bld) 61 % Normal 44-88 [facility] Comment on above: Performed By: #### 1 [id number], [id number] #### [facility] (DEFAULT) [address] [place] [address] 48500 CBC w/ Auto Diffon Erythrocyte distribution width (RBC) [Ratio] 14.0 % Normal 11.5-15.0 [facility] Comment on above: Performed By: #### 1 [id number] #### [facility] (DEFAULT) [address] [place] [address] 78834 Hematocrit (Bld) [Volume fraction] 44.8 % High 33.7-40.4 [facility] Comment on above: Performed By: #### 1 [id number], [id number] #### [facility] (DEFAULT) [address] [place] [address] 59391 Hemoglobin (Bld) [Mass/Vol] 15.1 g/dL Normal 11.3-15.9 [facility] Comment on above: Performed By: #### 1 [id number] #### [facility] (DEFAULT) [address] [place] [address] 35529 Man Diff? Auto Normal [facility] Comment on above: Performed By: #### 1 [id number], [id number] #### [facility] (DEFAULT) [address] [place] [address] 86960 MCH (RBC) [Entitic mass] 30 pg Normal 24-34 [facility] Comment on above: Performed By: #### 1 [id number], [id number] #### [facility] (DEFAULT) [address] [place] [address] 53068 MCHC (RBC) [Mass/Vol] 34 g/dL Normal 26-37 [facility] Comment on above: Performed By: #### 1 [id number], [id number] #### [facility] (DEFAULT) [address] [place] [address] 06716 MCV (RBC) [Entitic vol] 89 fL Normal 81-100 [facility] Comment on above: Performed By: #### 1 [id number], [id number] #### [facility] (DEFAULT) [address] [place] [address] 26602 Platelet mean volume (Bld) [Entitic vol] 9.5 fL Normal 6.3-10.2 [facility] Comment on above: Performed By: #### 1 [id number], [id number] #### [facility] (DEFAULT) [address] [place] [address] 01954 Platelets (Bld) [#/Vol] 301 x10 Normal 138-427 [facility] Comment on above: Performed By: #### 1 [id number], [id number] #### [facility] (DEFAULT) [address] [place] [address] 57389 RBC (Bld) [#/Vol] 5.04 x10 Normal 3.70-5.30 [facility] Comment on above: Performed By: #### 1 [id number], [id number] #### [facility] (DEFAULT) [address] [place] [address] 63739 WBC (Bld) [#/Vol] 12.6 x10 [facility] Comment on above: Performed By: #### 1 [id number], [id number] #### [facility] (DEFAULT) [address] [place] [address] 28317 Lab - Other Lab Resultson Lab - Other Lab Results [id number][facility] Outside Records [id number][facility] [id number][facility] Date Time Vital Sign Value Performing Clinician Facility 07-09-2024 15:23-0400 Diastolic blood pressure 85 mm[Hg] Ambrose Cedeño [facility] 07-09-2024 15:23-0400 Heart rate 80 /min Ambrose Cedeño [facility] 07-09-2024 15:23-0400 Mean blood pressure 97 mm[Hg] Ambrose Davidson [facility] 07-09-2024 15:23-0400 Respiratory rate 18 /min Ambrose Davidson [facility] 07-09-2024 15:23-0400 SaO2% (BldA) [Mass fraction] 99 % Ambrose Davidson [facility] 07-09-2024 15:23-0400 Systolic blood pressure 120 mm[Hg] Ambrose Davidson [facility] 07-09-2024 14:45-0400 Diastolic blood pressure 78 mm[Hg] Ambrose Davidson [facility] 07-09-2024 14:45-0400 Heart rate 83 /min Ambrose Davidson [facility] 07-09-2024 14:45-0400 Hourly Rounding Ambrose Davidson [facility] 07-09-2024 14:45-0400 Mean blood pressure 91 mm[Hg] Ambrose Davidson [facility] 07-09-2024 14:45-0400 Promise to Return Ambrose Davidson [facility] 07-09-2024 14:45-0400 Respiratory rate 18 /min Ambrose Davidson [facility] 07-09-2024 14:45-0400 SaO2% (BldA) [Mass fraction] 99 % Ambrose Davidson [facility] 07-09-2024 14:45-0400 Systolic blood pressure 118 mm[Hg] Ambrose Davidson [facility] 07-09-2024 13:45-0400 Diastolic blood pressure 89 mm[Hg] Ambrose Davidson [facility] 07-09-2024 13:45-0400 Heart rate 79 /min Ambrose Cedeño [facility] 07-09-2024 13:45-0400 Hourly Rounding Ambrose Cedeño [facility] 07-09-2024 13:45-0400 Mean blood pressure 95 mm[Hg] Ambrose Cedeño [facility] 07-09-2024 13:45-0400 Promise to Return Ambrose Cedeño [facility] 07-09-2024 13:45-0400 Respiratory rate 18 /min Ambrose Cedeño [facility] 07-09-2024 13:45-0400 SaO2% (BldA) [Mass fraction] 99 % Ambrose Cedeño [facility] 07-09-2024 13:45-0400 Systolic blood pressure 106 mm[Hg] Ambrose Cedeño [facility] 07-09-2024 12:41-0400 Body temperature 98.24 [degF] Ambrose Cedeño [facility] 07-09-2024 12:41-0400 Heart rate 82 /min Ambrose Cedeño [facility] 07-06-2024 20:55-0400 Diastolic blood pressure 84 mm[Hg] 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 Ajit Spasic Work Phone: [facility] 07-06-2024 20:55-0400 Heart rate 98 /min 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 Ajit Spasic Work Phone: [facility] 07-06-2024 20:55-0400 Respiratory rate 18 /min 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 Ajit Spasic Work Phone: [facility] 07-06-2024 20:55-0400 SaO2% (BldA) [Mass fraction] 97 % 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 Ajit Spasic Work Phone: [facility] 07-06-2024 20:55-0400 Systolic blood pressure 119 mm[Hg] 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 Ajit Spasic Work Phone: [facility] 07-06-2024 16:05-0400 Body height 166.37 cm 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 Ajit Spasic Work Phone: [facility] 07-06-2024 16:05-0400 Body temperature 98.2 [degF] 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 Ajit Spasic Work Phone: [facility] 07-06-2024 16:05-0400 Body weight 66.67 kg 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 Ajit Spasic Work Phone: [facility] 04-11-2024 14:08-0400 Diastolic blood pressure 70 mm[Hg] 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 Ajit Spasic Work Phone: [facility] 04-11-2024 14:08-0400 Heart rate 83 /min 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 Ajit Spasic Work Phone: [facility] 04-11-2024 14:08-0400 SaO2% (BldA) [Mass fraction] 99 % 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 Ajit Spasic Work Phone: [facility] 04-11-2024 14:08-0400 Systolic blood pressure 118 mm[Hg] 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 Ajit Spasic Work Phone: [facility] 03-16-2024 09:55-0400 Diastolic blood pressure 87 mm[Hg] 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 Ajit Spasic Work Phone: [facility] 03-16-2024 09:55-0400 Heart rate 66 /min 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 Ajit Spasic Work Phone: [facility] 03-16-2024 09:55-0400 Respiratory rate 20 /min 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 Ajit Spasic Work Phone: [facility] 03-16-2024 09:55-0400 SaO2% (BldA) [Mass fraction] 99 % 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 Ajit Spasic Work Phone: [facility] 03-16-2024 09:55-0400 Systolic blood pressure 138 mm[Hg] 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 Ajit Spasic Work Phone: [facility] 03-16-2024 07:01-0400 Body height 166.37 cm 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 Ajit Spasic Work Phone: [facility] 03-16-2024 07:01-0400 Body temperature 98.3 [degF] 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 Ajit Spasic Work Phone: [facility] 03-16-2024 07:01-0400 Body weight 69.85 kg 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 Ajit Spasic Work Phone: [facility] 03-08-2024 14:14-0400 Diastolic blood pressure 70 mm[Hg] 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 Ajit Spasic Work Phone: [facility] 03-08-2024 14:14-0400 Heart rate 95 /min 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 Ajit Spasic Work Phone: [facility] 03-08-2024 14:14-0400 SaO2% (BldA) [Mass fraction] 99 % 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 Ajit Spasic Work Phone: [facility] 03-08-2024 14:14-0400 Systolic blood pressure 122 mm[Hg] 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 Ajit Spasic Work Phone: [facility] 03-01-2024 12:19-0400 Diastolic blood pressure 75 mm[Hg] 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 Ajit Spasic Work Phone: [facility] 03-01-2024 12:19-0400 Heart rate 69 /min 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 Ajit Spasic Work Phone: 1(796)[phone] [place] [address] 03-01-2024 12:19-0400 Inhaled oxygen flow rate 3 L/min 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 Ajit Spasic Work Phone: [facility] 03-01-2024 12:19-0400 SaO2% (BldA) [Mass fraction] 100 % 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 Ajit Spasic Work Phone: 4(626)[phone] [place] [address] 03-01-2024 12:19-0400 Systolic blood pressure 130 mm[Hg] 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 Ajit Spasic Work Phone: 1(436)548-710881 [place] [address] 03-01-2024 12:13-0400 Respiratory rate 18 /min 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 Ajit Spasic Work Phone: 7(885)[phone] [address] 03-01-2024 09:54-0400 Body height 166.37 cm 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 Ajit Spasic Work Phone: 4(910)[phone] [place] [address] 03-01-2024 09:54-0400 Body weight 69.85 kg 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 Ajit Spasic Work Phone: 6(141)[phone] [address] 02-21-2024 10:41-0400 Body weight 69.11 kg 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 Ajit Spasic Work Phone: [facility] 02-21-2024 10:41-0400 Diastolic blood pressure 80 mm[Hg] 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 Ajit Spasic Work Phone: [facility] 02-21-2024 10:41-0400 Systolic blood pressure 124 mm[Hg] 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 Ajit Spasic Work Phone: [facility] 10-16-2023 13:00-0500 Diastolic blood pressure 94 mm[Hg] 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 Ajit Spasic Work Phone: [facility] 10-16-2023 13:00-0500 Heart rate 70 /min 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 Ajit Spasic Work Phone: [facility] 10-16-2023 13:00-0500 Respiratory rate 16 /min 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 Ajit Spasic Work Phone: [facility] 10-16-2023 13:00-0500 SaO2% (BldA) [Mass fraction] 97 % 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 Ajit Spasic Work Phone: [facility] 10-16-2023 13:00-0500 Systolic blood pressure 168 mm[Hg] 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 Ajit Spasic Work Phone: [facility] 10-16-2023 09:33-0500 Body height 165.1 cm 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 Ajit Spasic Work Phone: [facility] 10-16-2023 09:33-0500 Body temperature 97.4 [degF] 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 Ajit Spasic Work Phone: [facility] 10-16-2023 09:33-0500 Body weight 77.3 kg 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 Ajit Spasic Work Phone: [facility] 10-09-2023 16:00-0500 Body temperature 97.7 [degF] 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 Ajit Spasic Work Phone: [facility] 10-09-2023 16:00-0500 Diastolic blood pressure 80 mm[Hg] 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 Ajit Spasic Work Phone: [facility] 10-09-2023 16:00-0500 Heart rate 85 /min 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 Ajit Spasic Work Phone: [facility] 10-09-2023 16:00-0500 Respiratory rate 18 /min 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 Ajit Spasic Work Phone: [facility] 10-09-2023 16:00-0500 SaO2% (BldA) [Mass fraction] 99 % 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 Ajit Spasic Work Phone: [facility] 10-09-2023 16:00-0500 Systolic blood pressure 117 mm[Hg] 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 Ajit Spasic Work Phone: [facility] 10-08-2023 01:12-0500 Body height 165.1 cm 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 Ajit Spasic Work Phone: [facility] 10-08-2023 01:12-0500 Body weight 76.65 kg 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 Ajit Spasic Work Phone: [facility] 09-28-2023 13:30-0500 Diastolic blood pressure 87 mm[Hg] 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 Ajit Spasic Work Phone: [facility] 09-28-2023 13:30-0500 Heart rate 94 /min 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 Ajit Spasic Work Phone: [facility] 09-28-2023 13:30-0500 Respiratory rate 18 /min 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 Ajit Spasic Work Phone: [facility] 09-28-2023 13:30-0500 SaO2% (BldA) [Mass fraction] 94 % 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 Ajit Spasic Work Phone: [facility] 09-28-2023 13:30-0500 Systolic blood pressure 131 mm[Hg] 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 Ajit Spasic Work Phone: [facility] 09-28-2023 09:30-0500 Body temperature 97.9 [degF] 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 Ajit Spasic Work Phone: [facility] 09-28-2023 08:51-0500 Inhaled oxygen flow rate 10 L/min 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 Ajit Spasic Work Phone: [facility] 09-28-2023 07:20-0500 Body height 166.37 cm 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 Ajit Spasic Work Phone: [facility] 09-28-2023 07:20-0500 Body mass index (BMI) [Ratio] 27.7 kg/m2 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 Ajit Spasic Work Phone: [facility] 09-28-2023 07:20-0500 Body weight 76.7 kg 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 Ajit Spasic Work Phone: [facility] 07-13-2023 13:55-0400 Diastolic blood pressure 93 mm[Hg] NA [employer] Work Phone: [facility] 07-13-2023 13:55-0400 Heart rate 87 /min NA [employer] Work Phone: [facility] 07-13-2023 13:55-0400 Respiratory rate 16 /min NA [employer] Work Phone: [facility] 07-13-2023 13:55-0400 SaO2% (BldA) [Mass fraction] 96 % NA [employer] Work Phone: [facility] 07-13-2023 13:55-0400 Systolic blood pressure 133 mm[Hg] NA [employer] Work Phone: [facility] 07-13-2023 13:16-0400 Body temperature 98 [degF] NA [employer] Work Phone: [facility] 07-13-2023 12:51-0400 Inhaled oxygen flow rate 10 L/min NA [employer] Work Phone: [facility] 07-13-2023 12:17-0400 Body height 165.1 cm NA [employer] Work Phone: [facility] 07-13-2023 12:17-0400 Body mass index (BMI) [Ratio] 28.2 kg/m2 NA [employer] Work Phone: [facility] 07-13-2023 12:17-0400 Body weight 77 kg NA [employer] Work Phone: [facility] 05-05-2023 10:18-0400 Diastolic blood pressure 90 mm[Hg] 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 Ajit Spasic Work Phone: [facility] 05-05-2023 10:18-0400 Heart rate 82 /min 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 Ajit Spasic Work Phone: [facility] 05-05-2023 10:18-0400 Respiratory rate 18 /min 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 Ajit Spasic Work Phone: [facility] 05-05-2023 10:18-0400 SaO2% (BldA) [Mass fraction] 98 % 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 Ajit Spasic Work Phone: [facility] 05-05-2023 10:18-0400 Systolic blood pressure 130 mm[Hg] 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 Ajit Spasic Work Phone: [facility] 05-05-2023 09:39-0400 Inhaled oxygen flow rate 3 L/min 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 Ajit Spasic Work Phone: [facility] 05-05-2023 08:43-0400 Body height 165.1 cm 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 Ajit Spasic Work Phone: [facility] 05-05-2023 08:43-0400 Body weight 74.84 kg 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 Ajit Spasic Work Phone: [facility] 04-14-2023 12:08-0400 Diastolic blood pressure 89 mm[Hg] 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 Ajit Spasic Work Phone: [facility] 04-14-2023 12:08-0400 Heart rate 71 /min 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 Ajit Spasic Work Phone: [facility] 04-14-2023 12:08-0400 Respiratory rate 16 /min 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 Ajit Spasic Work Phone: [facility] 04-14-2023 12:08-0400 SaO2% (BldA) [Mass fraction] 97 % 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 Ajit Spasic Work Phone: [facility] 04-14-2023 12:08-0400 Systolic blood pressure 124 mm[Hg] 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 Ajit Spasic Work Phone: [facility] 04-14-2023 11:29-0400 Inhaled oxygen flow rate 3 L/min 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 Ajit Spasic Work Phone: [facility] 04-14-2023 10:19-0400 Body height 165.1 cm 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 Ajit Spasic Work Phone: [facility] 04-14-2023 10:19-0400 Body weight 74.84 kg 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 Ajit Spasic Work Phone: [facility] 04-02-2023 11:30-0400 Body height 166.37 cm Kyler Miramontes Other [facility] [employer] Other 04-02-2023 11:30-0400 Body mass index (BMI) [Ratio] 27.04 kg/m2 Kyler Miramontes Other [employer] [facility] [employer] Other 04-02-2023 11:30-0400 Body weight 74.84 kg Kyler Miramontes Other [employer] Other 04-02-2023 11:30-0400 Diastolic blood pressure 80 mm[Hg] Kyler Miramontes Other [employer] Other 04-02-2023 11:30-0400 Systolic blood pressure 110 mm[Hg] Kyler Miramontes Other [employer] Other 11-18-2022 11:59-0500 Diastolic blood pressure 94 mm[Hg] Services [facility] [employer] Work Phone: [facility] 11-18-2022 11:59-0500 Heart rate 85 /min Services [facility] Work Phone: [facility] 11-18-2022 11:59-0500 Respiratory rate 16 /min Services [facility] Work Phone: [facility] 11-18-2022 11:59-0500 SaO2% (BldA) [Mass fraction] 98 % Services [facility] Work Phone: [facility] 11-18-2022 11:59-0500 Systolic blood pressure 140 mm[Hg] Services [facility] Work Phone: [facility] 11-18-2022 11:21-0500 Inhaled oxygen flow rate 3 L/min Services [facility] Work Phone: [facility] 11-18-2022 09:23-0500 Body height 166.37 cm Services [facility] Work Phone: [facility] 11-18-2022 09:23-0500 Body weight 74.38 kg Services [facility] Work Phone: [facility] 11-03-2022 11:30-0500 Body height 166.37 cm Kyler Miramontes Other [employer] [facility] [employer] Other 11-03-2022 11:30-0500 Diastolic blood pressure 80 mm[Hg] Kyler Miramontes Other [employer] Other 11-03-2022 11:30-0500 SaO2% (BldA) [Mass fraction] 98 % Kyler Miramontes Other [employer] Other 11-03-2022 11:30-0500 Systolic blood pressure 118 mm[Hg] Kyler Miramnotes Other [employer] Other 07-31-2022 11:50-0400 Blood Pressure Location Joshua SILVEIRA [facility] 07-31-2022 11:50-0400 Diastolic blood pressure 82 mm[Hg] Joshua SILVEIRA [facility] 07-31-2022 11:50-0400 Heart rate 70 /min Joshua SILVEIRA [facility] 07-31-2022 11:50-0400 Respiratory rate 16 /min Joshua SILVEIRA [facility] 07-31-2022 11:50-0400 Systolic blood pressure 136 mm[Hg] Joshua SILVEIRA [facility] 05-27-2022 09:13-0400 Body temperature 97.9 [degF] Services [facility] [employer] Work Phone: [facility] 05-27-2022 09:13-0400 Body weight 77.11 kg Services [facility] [employer] Work Phone: [facility] 05-27-2022 09:13-0400 Diastolic blood pressure 82 mm[Hg] Services [facility] [employer] Work Phone: [facility] 05-27-2022 09:13-0400 Heart rate 70 /min Services [facility] Work Phone: [facility] 05-27-2022 09:13-0400 Respiratory rate 20 /min Services [facility] Work Phone: [facility] 05-27-2022 09:13-0400 SaO2% (BldA) [Mass fraction] 98 % Services [facility] [employer] Work Phone: [facility] 05-27-2022 09:13-0400 Systolic blood pressure 121 mm[Hg] Services [facility] Work Phone: [facility] 05-27-2022 08:06-0400 Body height 166.37 cm Services [facility] [employer] Work Phone: [facility] 05-01-2022 22:19-0400 Diastolic blood pressure 70 mm[Hg] Services [facility] Work Phone: [facility] 05-01-2022 22:19-0400 Heart rate 86 /min [facility] Work Phone: [facility] 05-01-2022 22:19-0400 Respiratory rate 18 /min [facility] Work Phone: [facility] 05-01-2022 22:19-0400 SaO2% (BldA) [Mass fraction] 99 % [facility] Work Phone: [facility] 05-01-2022 22:19-0400 Systolic blood pressure 138 mm[Hg] Services [facility] Work Phone: [facility] 05-01-2022 17:09-0400 Body height 166.37 cm Services [facility] Work Phone: [facility] 05-01-2022 17:09-0400 Body temperature 99.4 [degF] [facility] Work Phone: [facility] 05-01-2022 17:09-0400 Body weight 77.8 kg Services [facility] Work Phone: [facility] 04-29-2022 14:29-0400 Body height 165.1 cm Services [facility] Work Phone: [facility] 04-29-2022 14:29-0400 Body temperature 97.8 [degF] [facility] Work Phone: [facility] 04-29-2022 14:29-0400 Body weight 68.03 kg [facility] Work Phone: [facility] 04-29-2022 14:29-0400 Diastolic blood pressure 83 mm[Hg] Services [facility] Work Phone: [facility] 04-29-2022 14:29-0400 Heart rate 70 /min Services [facility] Work Phone: [facility] 04-29-2022 14:29-0400 Respiratory rate 16 /min [facility] Work Phone: [facility] 04-29-2022 14:29-0400 SaO2% (BldA) [Mass fraction] 100 % Services [facility] Work Phone: [facility] 04-29-2022 14:29-0400 Systolic blood pressure 131 mm[Hg] Services [facility] Work Phone: [facility] 02-19-2022 15:45-0400 Body height 166.37 cm Kyler Aliceaky Other [facility] [employer] Other 02-19-2022 15:45-0400 Body mass index (BMI) [Ratio] 27.36 kg/m2 Kyler Aliceaky Other [employer] Other 02-19-2022 15:45-0400 Body weight 75.75 kg Kyler Aliceaky Other [employer] Other 02-19-2022 15:45-0400 Diastolic blood pressure 64 mm[Hg] Kyler Miramontes Other [employer] Other 02-19-2022 15:45-0400 Systolic blood pressure 110 mm[Hg] Kyler Miramontes Other [employer] Other 01-28-2022 14:00-0400 Body height 166.37 cm Kyler Fe Other [employer] Other 01-28-2022 14:00-0400 Body mass index (BMI) [Ratio] 27.27 kg/m2 Kyler Miramontes Other [employer] Other 01-28-2022 14:00-0400 Body weight 75.48 kg Kyler Miramontes Other [employer] Other 01-28-2022 14:00-0400 Diastolic blood pressure 68 mm[Hg] Kyler Miramontes Other [employer] Other 01-28-2022 14:00-0400 Systolic blood pressure 112 mm[Hg] Kyler Miramontes Other [employer] Other 01-14-2022 12:00-0400 Body height 166.37 cm Girish Okeefedeb Other [employer] Other 01-14-2022 12:00-0400 Body mass index (BMI) [Ratio] 25.23 kg/m2 Girish Okeefedeb Other [employer] Other 01-14-2022 12:00-0400 Body weight 69.85 kg Girish Elsdeb Other [employer] Other Encounters Encounter Date Encounter Type Care Provider Facility Start: 07-09-2024 End: 07-09-2024 Emergency department patient visit Ambrose Cedeño Facility:[facility] [place] [place] Start: 07-06-2024 End: 07-06-2024 Emergency department patient visit 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 Ajit Pettit Work Phone: [facility]-Emergency Room Work Phone: Start: 07-04-2024 End: 07-04-2024 Patient encounter procedure 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 Ajti Pettit Work Phone: [facility]-Lab [place] Work Phone: Start: 07-04-2024 End: 07-04-2024 ambulatory 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 Ajit Pettit Work Phone: [facility] Work Phone: Start: 06-08-2024 End: 06-08-2024 Patient encounter procedure 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 Ajit Pettit Work Phone: [facility]-MRI [address] Work Phone: Start: 06-08-2024 End: 06-08-2024 ambulatory 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 Ajit E Spasic Work Phone: [facility] Work Phone: Start: 05-16-2024 End: 05-16-2024 ambulatory 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 Ajit E Spasic Work Phone: [facility] Work Phone: Start: 05-16-2024 End: 05-16-2024 Departed Referred 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 Ajit Spasic Work Phone: [facility] Services Start: 04-11-2024 End: 04-11-2024 ambulatory 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 Ajit E Spasic Work Phone: [facility] Work Phone: Start: 04-11-2024 End: 04-11-2024 Patient encounter procedure 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 Ajit Spasic Work Phone: [facility] Work Phone: Start: 03-16-2024 Non-patient / Non-visit 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 L aura Spasic Work Phone: [facility] Work Phone: Start: 03-16-2024 End: 03-16-2024 Admission to same day surgery center 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 Ajit Spasic Work Phone: [facility]-Digestive Health Work Phone: Start: 03-16-2024 End: 03-16-2024 ambulatory 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 Ajit E Spasic Work Phone: [facility] Work Phone: Start: 03-08-2024 End: 03-08-2024 ambulatory 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 Ajit E Spasic Work Phone: [facility] Work Phone: Start: 03-08-2024 End: 03-08-2024 Patient encounter procedure 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 Ajit Spasic Work Phone: [facility] Work Phone: Start: 03-02-2024 End: 03-02-2024 Patient encounter procedure 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 Ajit Spasic Work Phone: [facility]-XRay [facility] Work Phone: Start: 03-02-2024 End: 03-02-2024 ambulatory 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 Ajit E Spasic Work Phone: [facility] Work Phone: Start: 03-01-2024 Non-patient / Non-visit 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 L aura Spasic Work Phone: [facility] Work Phone: Start: 03-01-2024 End: 03-01-2024 Admission to same day surgery center 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 Ajit Spasic Work Phone: [facility]-Digestive Health Work Phone: Start: 03-01-2024 End: 03-01-2024 ambulatory 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 Ajit E Spasic Work Phone: [facility] Work Phone: Start: 02-21-2024 End: 02-21-2024 ambulatory 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 Ajit E Spasic Work Phone: [facility] Work Phone: Start: 02-21-2024 End: 02-21-2024 Patient encounter procedure 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 Ajit Spasic Work Phone: [facility] Work Phone: Start: 02-09-2024 End: 02-09-2024 Patient encounter procedure 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 Ajit Spasic Work Phone: [facility]Ultrasound Cntr for Breast Car Start: 02-09-2024 End: 02-09-2024 ambulatory 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 Ajit E Spasic Work Phone: [facility] Work Phone: Start: 02-04-2024 End: 02-04-2024 Patient encounter procedure 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 Ajit Spasic Work Phone: [facility]-Center for Breast Care Work Phone: Start: 02-04-2024 End: 02-04-2024 ambulatory 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 Ajit E Spasic Work Phone: [facility] Work Phone: Start: 01-21-2024 End: 01-21-2024 Patient encounter procedure 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 Ajit Spasic Work Phone: [facility]-Ultrasound [place] Work Phone: Start: 01-21-2024 End: 01-21-2024 ambulatory 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 Ajit E Spasic Work Phone: [facility] Work Phone: Start: 01-18-2024 End: 01-18-2024 ambulatory Ajit E Spasic [facility] Work Phone: Start: 01-18-2024 End: 01-18-2024 Departed Referred 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 Ajit Spasic Work Phone: [facility] Services Start: 10-20-2023 End: 10-20-2023 ambulatory CARRI A VISCI Not Available Start: 10-16-2023 End: 10-16-2023 Emergency department patient visit 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 Ajit Spasic Work Phone: [facility]-Emergency Room Work Phone: Start: 10-07-2023 End: 10-09-2023 Evaluation and management of inpatient 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 Ajit Spasic Work Phone: [facility]-[address] Work Phone: Start: 09-28-2023 End: 09-28-2023 Admission to same day surgery center 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 Ajit Spasic Work Phone: [facility]-Surgery Center [place] Start: 09-28-2023 End: 09-28-2023 ambulatory Carri Visci Facility:[facility] Start: 09-16-2023 End: 09-16-2023 Patient encounter procedure 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 Ajit Spasic Work Phone: [facility]-Pre-Surgical Testing Work Phone: Start: 09-16-2023 End: 09-16-2023 ambulatory 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 Ajit E Spasic Work Phone: [facility] Work Phone: Start: 07-13-2023 End: 07-13-2023 Admission to same day surgery center NA [employer] Work Phone: [facility]-Surgery Center [place] Start: 07-13-2023 End: 07-13-2023 ambulatory . [employer] Work Phone: [facility] Work Phone: Start: 06-30-2023 End: 06-30-2023 ambulatory . [employer] Work Phone: [facility] Work Phone: Start: 06-30-2023 End: 06-30-2023 Patient encounter procedure NA [employer] Work Phone: [facility]-Pre-Surgical Testing Work Phone: Start: 05-05-2023 (PROC) PROCEDURE [facility]es [facility] Start: 05-05-2023 End: 05-05-2023 Admission to same day surgery center 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 Ajit Spasic Work Phone: [facility]-Digestive Health Work Phone: Start: 05-05-2023 End: 05-05-2023 ambulatory NON STAFF [facility] Work Phone: Start: 05-04-2023 End: 05-04-2023 ambulatory NON STAFF [facility] Work Phone: Start: 05-04-2023 End: 05-04-2023 Departed Referred 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 Ajit Spasic Work Phone: [facility]-[place] [facility] Start: 04-26-2023 End: 04-26-2023 Patient encounter procedure 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 Ajit Spasic Work Phone: [facility]-Lab [place] Work Phone: Start: 04-14-2023 (PROC) PROCEDURE Kyler Joyner [facility] Start: 04-14-2023 End: 04-14-2023 Admission to same day surgery center 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 Ajit Spasic Work Phone: [facility]-Digestive Health Work Phone: Start: 04-14-2023 End: 04-14-2023 ambulatory NON STAFF [facility] [employer] Other Start: 04-02-2023 End: 04-02-2023 ambulatory Kyler Miramontes Other [employer] Other Start: 04-02-2023 Office outpatient vi sit 25 minutes Kyler Miramontes [facility] [place] Start: 02-15-2023 End: 02-15-2023 ambulatory AJIT SPASIC Facility:[facility] Start: 02-09-2023 End: 02-09-2023 ambulatory Services [facility] Work Phone: [facility] Work Phone: Start: 02-09-2023 End: 02-09-2023 Departed Referred Services [facility] Work Phone: [facility] Services Start: 01-29-2023 End: 01-29-2023 ambulatory AJIT MILLANC Facility:[facility] Start: 11-18-2022 (PROC) PROCEDURE Kyler Miramontes [facility] Medical OutPt Start: 11-18-2022 End: 11-18-2022 Admission to same day surgery center Services [facility] Work Phone: [facility] Work Phone: Start: 11-18-2022 End: 11-18-2022 ambulatory Services [facility] Work Phone: [facility] Work Phone: Start: 11-12-2022 End: 11-12-[address] DERICK BORRERO . Facility:[facility] Start: 11-05-2022 End: 11-05-2022 ambulatory Services [facility] Work Phone: [facility] Work Phone: Start: 11-05-2022 End: 11-05-2022 Departed Referred Services [facility] Work Phone: [facility] Services Start: 11-03-2022 End: 11-03-2022 ambulatory Kyler Fe Other [facility] [employer] Other Start: 11-03-2022 Office outpatient vi sit 25 minutes Kyler Miramontes [facility] Start: 11-03-2022 End: 11-03-2022 Patient encounter procedure Services [facility] Work Phone: [facility]-XRay [facility] Work Phone: Start: 11-02-2022 End: 11-02-2022 Patient encounter procedure Joshua SILVEIRA [facility] [place] Start: 09-29-2022 End: 09-29-2022 Patient encounter procedure Joshua SILVEIRA [facility] [place] Start: 08-24-2022 End: 08-24-2022 Patient encounter procedure Joshua SILVEIRA [facility] Start: 07-31-2022 End: 07-31-2022 Patient encounter procedure Joshua SILVEIRA [facility] [place] Start: 07-08-2022 End: 07-08-2022 ambulatory [facility] Work Phone: [facility] Work Phone: Start: 07-08-2022 End: 07-08-2022 Patient encounter procedure [facility] Work Phone: [facility]Lab [place] Start: 06-24-2022 End: 06-24-2022 Patient encounter procedure [facility] Work Phone: [facility]-MRI [place] Start: 06-17-2022 End: 06-17-2022 Patient encounter procedure [facility] Work Phone: [facility]-Ultrasound [place] Start: 06-09-2022 End: 06-09-2022 Patient encounter procedure [facility] Work Phone: [facility]-Ultrasound [place] Start: 06-02-2022 End: 06-02-2022 Departed Referred Services [facility] Work Phone: [facility] Start: 05-27-2022 End: 05-27-2022 Registered Recurring Services [facility] Work Phone: [facility]-Cancer Center Start: 05-07-2022 End: 05-07-2022 Patient encounter procedure Services [facility] Work Phone: [facility]-Lab [place] Start: 05-01-2022 End: 05-01-2022 Emergency department patient visit Services [facility] Work Phone: [facility]-Emergency Room Start: 05-01-2022 End: 05-01-2022 Patient encounter procedure Services [facility] Work Phone: [facility]-XRay [place] Start: 04-30-2022 End: 04-30-2022 Departed Referred Services [facility] Work Phone: [facility] Start: 04-29-2022 End: 04-29-2022 Emergency department patient visit Services [facility] Work Phone: [facility]-Emergency Room Start: 03-04-2022 (Procedure) Short Kyler Miramontes [facility] OutPt Start: 03-04-2022 End: 03-04-2022 ambulatory Kylerjocelyn Miramnotes Other [employer] Other Start: 02-19-2022 End: 02-19-2022 ambulatory Kyler Fe Other [employer] Other Start: 02-19-2022 Office outpatient vi sit 25 minutes Kyler Fe [facility] Start: 02-11-2022 (Procedure) Short Kyler Miramontes [facility] Out[facility] Start: 02-11-2022 End: 02-11-2022 ambulatory Kyler Fe Other [employer] Other Start: 01-28-2022 End: 01-28-2022 ambulatory Kyler Fe Other [employer] Other Start: 01-28-2022 Office consultation new/estab patient 60 min Kyler Fe [facility] Start: 01-14-2022 End: 01-14-2022 ambulatory Girish Callaway Other [employer] Other Start: 01-14-2022 Office outpatient ne w [address] [facility] Neurosurgery Start: 01-21-2021 End: 01-21-2021 Departed Referred Services [facility] Work Phone: -[facility] Start: 12-24-2020 End: 12-24-2020 Patient encounter procedure Ajit Millanc -MRI [facility] Start: 12-03-2020 End: 12-03-2020 Patient encounter procedure Ajit Spasic -MRI [facility] Start: 12-02-2020 End: 12-02-2020 Patient encounter procedure Ajit Spasic -MRI [facility] Start: 11-05-2020 End: 11-05-2020 Departed Referred Ajit Sparyanc -[place] [facility] Start: 10-22-2020 End: 10-22-2020 Patient encounter procedure Ajit Pettit -XRay [facility] Start: 09-23-2020 End: 09-23-2020 Patient encounter procedure Ajit Millanc -Lab [facility] Procedures Date Procedure Procedure Detail Performing Clinician Start: 07-06-2024 Plain chest X-ray 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 Ajit Spasic Work Phone: Start: 07-06-2024 Computed tomography of abdomen and pelvis with contrast 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 Ajti Spasic Work Phone: Start: 06-08-2024 MR lumbar spine wo con 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 Ajit Spasic Work Phone: Start: 03-16-2024 Screening colonoscopy N P-C Ajit Spasic Work Phone: Start: 03-02-2024 X-ray of lumbar spin e, four views 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 Ajit Spasic Work Phone: Start: 03-01-2024 Injection of local anesthetic into sacroiliac joint 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 Ajit Spasic Work Phone: Start: 02-09-2024 Ultrasonography of r ight breast 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 Ajit Spasic Work Phone: Start: 02-04-2024 Screening mammograph y of bilateral breasts 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 Ajit Spasic Work Phone: Start: 04-19-2024 Ultrasonography of bilateral kidneys 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 Ajit Millanc Work Phone: Start: 10-09-2023 Stool culture for bacteria 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 Ajit Millanc Work Phone: Start: 10-08-2023 Computed tomography of abdomen and pelvis with contrast 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 Ajit Millanc Work Phone: Start: 09-28-2023 Total hysterectomy v ia vaginal approach 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 Ajit Millanc Work Phone: Start: 09-16-2023 Antibody screen Ajit Gonzalez savanna Comment on above: Order Comment: Reaso n for Exam Type 2 diabetes mellitus without complication, without long- Result Comment: PERF ORMED BY: [facility] [address] [place] [address] PATHOLOGIST [employer]LECT[employer]SEM[employer]ER RIDGE HUERTA M.D. Start: 07-13-2023 Hysteroscopy NA [facility] Work Phone: Start: 05-05-2023 Injection of local anesthetic into sacroiliac joint 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 Ajit Lariossic Work Phone: Start: 05-04-2023 Urine culture NA [facility] Work Phone: Start: 04-26-2023 Radiography of thora cic spine 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 Ajit Lariossic Work Phone: Start: 04-14-2023 Epidural injection o f lumbar spine using fluoroscopic guidance 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 Ajit Spasic Work Phone: Start: 02-09-2023 Urine culture 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 Piero bee Spasic Work Phone: Start: 11-18-2022 Injection of spinal epidural space Services [facility] Work Phone: Start: 11-05-2022 Urine culture Services [facility] Work Phone: Start: 11-03-2022 X-ray of cervical spine Services [facility] Work Phone: Start: 08-24-2022 Cystourethroscopy wi dilation of urethral stricture Joshua SILVEIRA Start: 06-24-2022 MRI of head Services [facility] Work Phone: Start: 06-17-2022 Transvaginal echography Services [facility] Work Phone: Start: 06-17-2022 Pelvic echography Servi sharri [facility] Work Phone: Start: 06-09-2022 US scan of bladder Serv ices [facility] Work Phone: Start: 05-01-2022 Computed tomography of abdomen and pelvis with contrast Services [facility] Work Phone: Start: 05-01-2022 X-ray of right knee Ser [facility] Work Phone: Start: 04-29-2022 X-ray of left ankle Ser [facility] Work Phone: Start: 12-24-2020 MRI of left [...] cervi jordan spine Ajit Spasic Appendectomy Joshua SILVEIRA Blood culture for ba cteria, including anaerobic screen Services [facility] Work Phone: Blood culture for ba cteria, including anaerobic screen Services [facility] Work Phone: Cholecystectomy Joshua SILVEIRA H/O: hysterectomy S/P hysterectomy 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 L aura Spasic Work Phone: H/O: hysterectomy Status post hysterectomy 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 Ajit Spasic Work Phone: Urine culture Services [facility] Work Phone: Plan of Treatment Date Care Activity Detail Author Start: 03-16-2024 [facility] Start: 03-01-2024 [facility] Start: 10-16-2023 Bacteria identified in Blood by Culture [facility] Start: 10-16-2023 [facility] Start: 10-09-2023 Stool culture Stool Culture [facility] Start: 10-09-2023 [facility] Start: 10-09-2023 Referral to multi operation forming machine setter [facility] Start: 10-08-2023 Hospital admission [facility] Start: 10-08-2023 [facility] Start: 10-07-2023 Referral to clinical press breaker [facility] Start: 09-28-2023 Hospital admission [facility] Start: 09-28-2023 [facility] Start: 07-13-2023 End: 07-13-2023 [facility] Start: 05-05-2023 [facility] Start: 05-04-2023 Bacteria identified in Urine by Culture Urine Culture [facility] Start: 05-04-2023 Urine culture Urine Culture [facility] Start: 04-14-2023 [facility] Start: 02-09-2023 Bacteria identified in Urine by Culture [facility] Start: 11-18-2022 [facility] Start: 11-05-2022 Bacteria identified in Urine by Culture [facility] Start: 06-02-2022 End: 06-02-2022 Departed Referred Departed Referred [facility] Start: 05-27-2022 Registered Recurring Iron deficiency [facility]-Cancer Center Start: 05-27-2022 [facility] Start: 05-07-2022 End: 05-07-2022 Patient encounter procedure Departed Clinical [facility] [place] Start: 05-01-2022 Computed tomography of abdomen and pelvis with contrast CT abdomen pelvis w con [facility] Start: 05-01-2022 End: 05-01-2022 Emergency department patient visit Departed Emergency [facility]-Emergency Room Atopobium vaginae DN A [Presence] in Vaginal fluid by NAYELY with probe detection [facility] Bacterial vaginosis associated bacterium 2 DNA [Presence] in Vaginal fluid by NAYELY with probe detection [facility] Chlamydia trachomati s rRNA [Presence] in Cervix by NAYELY with probe detection [facility] Glucose measurement estimated from glycated hemoglobin [facility] Glucose measurement estimated from glycated hemoglobin [facility] Hemoglobin A1c/Hemoglobin.total in Blood [facility] Human papilloma viru s 16+18+31+33+35+39+45+51+5 2+56+58+59+66+68 DNA [Presence] in Cervix by Probe with signal amplification [facility] Human papilloma viru s 16+18+31+33+35+39+45+51+5 2+56+58+59+68 DNA [Presence] in Cervix by Probe with signal amplification [facility] Megasphaera sp type 1 DNA [Presence] in Vaginal fluid by NAYELY with probe detection [facility] Neisseria gonorrhoea e rRNA [Presence] in Cervix by NAYELY with probe detection [facility] Patient Education [facility] Work Phone: Patient referral [facility] Work Phone: XR Lumbar spine 4 Views [facility] Immunizations Immunization Date Immunization Notes Care Provider Jaret mitchell 09-19-2021 COVID-19 mRNA, Comirnaty (Pfizer) NA [facility] [employer] Work Phone: [facility] 08-29-2021 COVID-19 mRNA, Comirnaty (Pfizer) NA [facility] [employer] Work Phone: [facility] NEGATED: Highlighted row has not occurred!10-27-2019 influenza virus vaccine, live, attenuated, for intranasal use Joshua SILVEIRA [facility] Payers Date Payer Category Payer Unknown [id number] 2024 Unknown [id number] 2023 [facility] [id number] 1979 Unknown [id number] 2.16.84 [id number] 1979 Unknown [id number] 2.16.84 [id number] 1979 Unknown [id number] 2.16.84 [id number] 1979 Unknown [id number] 2.16.84 [id number] 1979 Unknown [id number] 2.16.8 [id number] 1979 Unknown [id number] 2.16.8 [id number] 1979 Unknown [id number] 2.16.8 [id number] 1959 Medicaid [id number] Unknown [id number] Unknown [id number] 2.16.8 40.1.111976.3.579.2.531 Unknown [id number] 2.16.8 40.1.194328.3.579.2.531 Unknown [id number] 2.16.8 40.1.939402.3.579.2.531 Unknown [id number] 2.16.8 40.1.593264.3.579.2.531 Unknown [id number] 2.16.8 40.1.212720.3.579.2.531 Unknown [id number] 2.16.8 40.1.196995.3.579.2.531 Unknown [id number] 2.16.8 40.1.145651.3.579.2.531 Unknown [id number] 2.16.8 40.1.563500.3.579.2.531 Unknown [id number] 2.16.8 40.1.913469.3.579.2.531 Unknown [id number] 2.16.8 40.1.289233.3.579.2.531 Unknown [id number] 2.16.8 40.1.376188.3.579.2.531 Unknown [id number] 2.16.8 40.1.737458.3.579.2.531 Unknown [id number] 2.16.8 40.1.463570.3.579.2.531 Unknown [id number] 2.16.8 40.1.603019.3.579.2.531 Unknown [id number] 2.16.8 40.1.859812.3.579.2.531 Social History Date Type Detail Facility Start: 09-25-2019 End: 07-06-2024 Tobacco smoking status NHIS Smoker (finding) [facility] Start: 1980 Sex Assigned At Female [facility] Sex Assigned At [facility] Start: 07-31-2022 Tobacco smoking status Heavy tobacco smoker (finding) [facility] Start: 03-01-2024 End: 03-16-2024 Tobacco smoking status NHIS Current some day smoker [facility] NEGATED: Highlighted row [facility] Goals Date Patient Goal Desired Activity /State Functional Status Date Assessment Result Facility 07-09-2024 Functional Status N/A [facility] 10-09-2023 Functional status Patient at [facility] Work Phone: 11-02-2022 Functional Status N/A [facility] 08-24-2022 Functional Status N/A [facility] 07-31-2022 Functional Status N/A [facility] Mental Status Date Assessment Result Facility 10-09-2023 Cognitive function Cognitive Sta tus Patient at Baseline [facility] Work Phone: Clinical Notes 01-14-2022 to 07-09-2024 Note Date & Type Note Facility 07-09-2024 Hospital Discharg e instructions Patient Education 07/09/2024 14:17:29 Dehydration, Adult Dehydration, Adult Dehydration is a condition in which there is not enough water or other fluids in the body. This happens when a person loses more fluids than they take in. Important organs, such as the kidneys, brain, and heart, cannot function without a proper amount of fluids. Any loss of fluids from the body can lead to dehydration. Dehydration can be mild, moderate, or severe. It should be treated right away to prevent it from becoming severe. What are the causes? Dehydration may be caused by: Health conditions, such as diarrhea, vomiting, fever, infection, or sweating or urinating a lot. Not drinking enough fluids. Certain medicines, such as medicines that remove excess fluid from the body (diuretics). Lack of safe drinking water. Not being able to get enough water and food. What increases the risk? The following factors may make you more likely to develop this condition: Having a long-term (chronic) illness that has not been treated properly, such as diabetes, heart disease, or kidney disease. Being 65 years of age or older. Having a disability. Living in a place that is high in altitude, where thinner, enamel drier air causes more fluid loss. Doing exercises that put stress on your body for a long time (endurance sports). Being active in a hot climate. What are the signs or symptoms? Symptoms of dehydration depend on how severe it is. Mild or moderate dehydration Thirst. Dry lips or dry mouth. Dizziness or light-headedness. Muscle cramps. Dark urine. Urine may be the color of tea. Less urine or tears produced than usual. Headache. Severe dehydration Changes in skin. Your skin may be cold and clammy, blotchy, or pale. Your skin also may not return to normal after being lightly pinched and released. Little or no tears, urine, or sweat. Rapid breathing and low blood pressure. Your pulse may be weak or may be faster than 100 beats per minute when you are sitting still. Other changes, such as: ?Feeling very thirsty. ?Sunken eyes. ?Cold hands and feet. ?Confusion. ?Being very tired (lethargic) or having trouble waking from sleep. ?Short-term weight loss. ?Loss of consciousness. How is this diagnosed? This condition is diagnosed based on your symptoms and a physical exam. You may have blood and urine tests to help confirm the diagnosis. How is this treated? Treatment for this condition depends on how severe it is. Treatment should be started right away. Do not wait until dehydration becomes severe. Severe dehydration is an emergency and needs to be treated in a hospital. Mild or moderate dehydration can be treated at home. You may be asked to: ?Drink more fluids. ?Drink an oral rehydration solution (ORS). This drink restores fluids, salts, and minerals in the blood (electrolytes). ?Stop any activities that caused dehydration, such as exercise. ?Cool off with cool compresses, cool mist, or cool fluids, if heat or too much sweat caused your condition. ?Take medicine to treat fever, if fever caused your condition. ?Take medicine to treat nausea and diarrhea, if vomiting or diarrhea caused your condition. Severe dehydration can be treated: ?With IV fluids. ?By correcting abnormal levels of electrolytes in your body. ?By treating the underlying cause of dehydration. Follow these instructions at home: Oral rehydration solution If told by your health care provider, drink an ORS: Make an ORS by following instructions on the package. Start by drinking small amounts, about cup (120 mL) every 5 10 minutes. Slowly increase how much you drink until you have taken the amount recommended by your health care provider. Eating and drinking Drink enough clear fluid to keep your urine pale yellow. If you were told to drink an ORS, finish the ORS first and then start slowly drinking other clear fluids. Drink fluids such as: ?Water. Do not drink only water. Doing that can lead to hyponatremia, which is having too little salt (sodium) in the body. ?Water from ice chips you suck on. ?Diluted fruit juice. This is fruit juice that you have added water to. ?Low-calorie sports drinks. Eat foods that contain a healthy balance of electrolytes, such as bananas, oranges, potatoes, tomatoes, and spinach. Do not drink alcohol. Avoid the following: ?Drinks that contain a lot of sugar. These include high-calorie sports drinks, fruit juice that is not diluted, and soda. ?Caffeine. ?Foods that are greasy or contain a lot of fat or sugar. General instructions Take dpcf-hli-mwknxmy and prescription medicines only as told by your health care provider. Do not take sodium tablets. Doing that can lead to having too much sodium in the body (hypernatremia). Return to your normal activities as told by your health care provider. Ask your health care provider what activities are safe for you. Keep all follow-up visits. Your health care provider may need to check your progress and suggest new ways to treat your condition. Contact a health care provider if: You have muscle cramps, pain, or discomfort, such as: ?Pain in your abdomen and the pain gets worse or stays in one area. ?Stiff neck. You have a rash. You are more irritable than usual. You are sleepier or have a harder time waking. You feel weak or dizzy. You feel very thirsty. Get help right away if: You have symptoms of severe dehydration. You vomit every time you eat or drink. Your vomiting gets worse, does not go away, or includes blood or green matter (bile). You are getting treatment but symptoms are getting worse. You have a fever. You have a severe headache. You have: ?Diarrhea that gets worse or does not go away. ?Blood in your stool. This may cause stool to look black and tarry. ?Not urinating, or urinating only a small amount of very dark urine, within 6 8 hours. You have trouble breathing. These symptoms may be an emergency. Get help right away. Do not wait to see if the symptoms will go away. Do not drive yourself to the hospital. Call 911. This information is not intended to replace advice given to you by your health care provider. Make sure you discuss any questions you have with your health care provider. Document Revised: 04/19/2023 Document Reviewed: 04/19/2023 [employer] Patient Education 2023 [employer] 07/09/2024 14:17:29 Viral Illness, Adult Viral Illness, Adult Viruses are tiny germs that can get into a person's body and cause illness. There are many different types of viruses. And they cause many types of illness. Viral illnesses can range from mild to severe. They can affect various parts of the body. Short-term conditions that are caused by a virus include colds and flu (influenza) and stomach viruses. Long-term conditions that are caused by a virus include herpes, shingles, and human immunodeficiency virus (HIV) infection. A few viruses have been linked to certain cancers. What are the causes? Many types of viruses can cause illness. Viruses get into cells in your body, multiply, and cause the infected cells to work differently or . When these cells , they release more of the virus. When this happens, you get symptoms of the illness and the virus spreads to other cells. If the virus takes over how the cell works, it can cause the cell to divide and grow out of control. This happens when a virus causes cancer. Different viruses get into the body in different ways. You can get a virus by: Swallowing food or water that has come in contact with the virus. Breathing in droplets that have been coughed or sneezed into the air by an infected person. Touching a surface that has the virus on it and then touching your eyes, nose, or mouth. Being bitten by an insect or animal that carries the virus. Having sexual contact with a person who is infected with the virus. Being exposed to blood or fluids that contain the virus, either through an open cut or during a transfusion. If a virus enters your body, your body's disease-fighting system (immune system) will try to fight the virus. You may be at higher risk for a viral illness if your immune system is weak. What are the signs or symptoms? Symptoms depend on the type of virus and the location of the cells that it gets into. Symptoms can include: For cold and flu viruses: ?Fever. ?Headache. ?Sore throat. ?Muscle aches. ?Stuffy nose (nasal congestion). ?Cough. For stomach (gastrointestinal) viruses: ?Fever. ?Pain in the abdomen. ?Nausea or vomiting. ?Diarrhea. For liver viruses (hepatitis): ?Loss of appetite. ?Feeling tired. ?Skin or the white parts of your eyes turning yellow (jaundice). For brain and spinal cord viruses: ?Fever. ?Headache. ?Stiff neck. ?Nausea and vomiting. ?Confusion or being sleepy. For skin viruses: ?Warts. ?Itching. ?Rash. For sexually transmitted viruses: ?Discharge. ?Swelling. ?Redness. ?Rash. How is this diagnosed? This condition may be diagnosed based on one or more of these: Your symptoms and medical history. A physical exam. Tests, such as: ?Blood tests. ?Tests on a sample of mucus from your lungs (sputum sample). ?Tests on a poop (stool) sample. ?Tests on a swab of body fluids or a skin sore (lesion). How is this treated? Viruses can be hard to treat because they live within cells. Antibiotics do not treat viruses because these medicines do not get inside cells. Treatment for a viral illness may include: Resting and drinking a lot of fluids. Medicines to treat symptoms. These can include ljml-axl-datjisg medicine for pain and fever, medicines for cough or congestion, and medicines for diarrhea. Antiviral medicines. These medicines are available only for certain types of viruses. Some viral illnesses can be prevented with vaccinations. A common example is the flu shot. Follow these instructions at home: Medicines Take oart-mff-flxgmyo and prescription medicines only as told by your health care provider. If you were prescribed an antiviral medicine, take it as told by your provider. Do not stop taking the antiviral even if you start to feel better. Know when antibiotics are needed and when they are not needed. Antibiotics do not treat viruses. You may get an antibiotic if your provider thinks that you may have, or are at risk for, a bacterial infection and you have a viral infection. ?Do not ask for an antibiotic prescription if you have been diagnosed with a viral illness. Antibiotics will not make your illness go away faster. ?Taking antibiotics when they are not needed can lead to antibiotic resistance. When this develops, the medicine no longer works against the bacteria that it normally fights. General instructions Drink enough fluids to keep your pee (urine) pale yellow. Rest as much as possible. Return to your normal activities as told by your provider. Ask your provider what activities are safe for you. How is this prevented? To lower your risk of getting another viral illness: Wash your hands often with soap and water for at least 20 seconds. If soap and water are not available, use hand drilling assistant. Avoid touching your nose, eyes, and mouth, especially if you have not washed your hands recently. If anyone in your household has a viral infection, clean all household surfaces that may have been in contact with the virus. Use soap and hot water. You may also use a commercially prepared, bleach-containing solution. Stay away from people who are sick with symptoms of a viral infection. Do not share items such as toothbrushes and water bottles with other people. Keep your vaccinations up to date. This includes getting a yearly flu shot. Eat a healthy diet and get plenty of rest. Contact a health care provider if: You have symptoms of a viral illness that do not go away. Your symptoms come back after going away. Your symptoms get worse. Get help right away if: You have trouble breathing. You have a severe headache or a stiff neck. You have severe vomiting or pain in your abdomen. These symptoms may be an emergency. Get help right away. Call 911. Do not wait to see if the symptoms will go away. Do not drive yourself to the hospital. This information is not intended to replace advice given to you by your health care provider. Make sure you discuss any questions you have with your health care provider. Document Revised: 10/06/2023 Document Reviewed: 07/21/2023 [employer] Patient Education 2023 [email or web address] Follow Up Care 07/09/2024 12:40:30 With:AJIT PETTIT Address: [facility] [address] [place] [address] Business (1) When:07/12/2024 14:17:20 Comments:Call the office of your primary care doctor to arrange for follow-up within the above-stated timeframe. Follow-up with your primary care doctor about this ED visit. You should review your labs, imaging, and diagnoses from this ED visit with your primary care physician. There are occasionally non-emergent findings that require additional follow-up after your ED visit. If you were prescribed medications you should discuss possible side-effects and drug interactions with your pharmacist. Call 911 or go to the nearest Emergency Department if you develop any new or worsening symptoms. [facility] 07-09-2024 Note ED Patient Education Note Infectious Disease Viral Illness, Adult Viruses are tiny germs that can get into a person's body and cause illness. There are many different types of viruses. And they cause many types of illness. Viral illnesses can range from mild to severe. They can affect various parts of the body. Short-term conditions that are caused by a virus include colds and flu (influenza) and stomach viruses. Long-term conditions that are caused by a virus include herpes, shingles, and human immunodeficiency virus (HIV) infection. A few viruses have been linked to certain cancers. What are the causes? Many types of viruses can cause illness. Viruses get into cells in your body, multiply, and cause the infected cells to work differently or . When these cells , they release more of the virus. When this happens, you get symptoms of the illness and the virus spreads to other cells. If the virus takes over how the cell works, it can cause the cell to divide and grow out of control. This happens when a virus causes cancer. Different viruses get into the body in different ways. You can get a virus by: ? Swallowing food or water that has come in contact with the virus. ? Breathing in droplets that have been coughed or sneezed into the air by an infected person. ? Touching a surface that has the virus on it and then touching your eyes, nose, or mouth. ? Being bitten by an insect or animal that carries the virus. ? Having sexual contact with a person who is infected with the virus. ? Being exposed to blood or fluids that contain the virus, either through an open cut or during a transfusion. If a virus enters your body, your body's disease-fighting system (immune system) will try to fight the virus. You may be at higher risk for a viral illness if your immune system is weak. What are the signs or symptoms? Symptoms depend on the type of virus and the location of the cells that it gets into. Symptoms can include: ? For cold and flu viruses: ? Fever. ? Headache. ? Sore throat. ? Muscle aches. ? Stuffy nose (nasal congestion). ? Cough. ? For stomach (gastrointestinal) viruses: ? Fever. ? Pain in the abdomen. ? Nausea or vomiting. ? Diarrhea. ? For liver viruses (hepatitis): ? Loss of appetite. ? Feeling tired. ? Skin or the white parts of your eyes turning yellow (jaundice). ? For brain and spinal cord viruses: ? Fever. ? Headache. ? Stiff neck. ? Nausea and vomiting. ? Confusion or being sleepy. ? For skin viruses: ? Warts. ? Itching. ? Rash. ? For sexually transmitted viruses: ? Discharge. ? Swelling. ? Redness. ? Rash. How is this diagnosed? This condition may be diagnosed based on one or more of these: ? Your symptoms and medical history. ? A physical exam. ? Tests, such as: ? Blood tests. ? Tests on a sample of mucus from your lungs (sputum sample). ? Tests on a poop (stool) sample. ? Tests on a swab of body fluids or a skin sore (lesion). How is this treated? Viruses can be hard to treat because they live within cells. Antibiotics do not treat viruses because these medicines do not get inside cells. Treatment for a viral illness may include: ? Resting and drinking a lot of fluids. ? Medicines to treat symptoms. These can include yfhk-yqv-jilicaf medicine for pain and fever, medicines for cough or congestion, and medicines for diarrhea. ? Antiviral medicines. These medicines are available only for certain types of viruses. Some viral illnesses can be prevented with vaccinations. A common example is the flu shot. Follow these instructions at home: Medicines ? Take rxsl-utx-btsewnp and prescription medicines only as told by your health care provider. ? If you were prescribed an antiviral medicine, take it as told by your provider. Do not stop taking the antiviral even if you start to feel better. ? Know when antibiotics are needed and when they are not needed. Antibiotics do not treat viruses. You may get an antibiotic if your provider thinks that you may have, or are at risk for, a bacterial infection and you have a viral infection. ? Do not ask for an antibiotic prescription if you have been diagnosed with a viral illness. Antibiotics will not make your illness go away faster. ? Taking antibiotics when they are not needed can lead to antibiotic resistance. When this develops, the medicine no longer works against the bacteria that it normally fights. General instructions ? Drink enough fluids to keep your pee (urine) pale yellow. ? Rest as much as possible. ? Return to your normal activities as told by your provider. Ask your provider what activities are safe for you. How is this prevented? To lower your risk of getting another viral illness: ? Wash your hands often with soap and water for at least 20 seconds. If soap and water are not available, use hand drilling assistant. ? Avoid touching your nose, eyes, and mouth, especial (more content not included)... [facility] 07-09-2024 Note ED Patient Education Note Infectious Disease Viral Illness, Adult Viruses are tiny germs that can get into a person's body and cause illness. There are many different types of viruses. And they cause many types of illness. Viral illnesses can range from mild to severe. They can affect various parts of the body. Short-term conditions that are caused by a virus include colds and flu (influenza) and stomach viruses. Long-term conditions that are caused by a virus include herpes, shingles, and human immunodeficiency virus (HIV) infection. A few viruses have been linked to certain cancers. What are the causes? Many types of viruses can cause illness. Viruses get into cells in your body, multiply, and cause the infected cells to work differently or . When these cells , they release more of the virus. When this happens, you get symptoms of the illness and the virus spreads to other cells. If the virus takes over how the cell works, it can cause the cell to divide and grow out of control. This happens when a virus causes cancer. Different viruses get into the body in different ways. You can get a virus by: ? Swallowing food or water that has come in contact with the virus. ? Breathing in droplets that have been coughed or sneezed into the air by an infected person. ? Touching a surface that has the virus on it and then touching your eyes, nose, or mouth. ? Being bitten by an insect or animal that carries the virus. ? Having sexual contact with a person who is infected with the virus. ? Being exposed to blood or fluids that contain the virus, either through an open cut or during a transfusion. If a virus enters your body, your body's disease-fighting system (immune system) will try to fight the virus. You may be at higher risk for a viral illness if your immune system is weak. What are the signs or symptoms? Symptoms depend on the type of virus and the location of the cells that it gets into. Symptoms can include: ? For cold and flu viruses: ? Fever. ? Headache. ? Sore throat. ? Muscle aches. ? Stuffy nose (nasal congestion). ? Cough. ? For stomach (gastrointestinal) viruses: ? Fever. ? Pain in the abdomen. ? Nausea or vomiting. ? Diarrhea. ? For liver viruses (hepatitis): ? Loss of appetite. ? Feeling tired. ? Skin or the white parts of your eyes turning yellow (jaundice). ? For brain and spinal cord viruses: ? Fever. ? Headache. ? Stiff neck. ? Nausea and vomiting. ? Confusion or being sleepy. ? For skin viruses: ? Warts. ? Itching. ? Rash. ? For sexually transmitted viruses: ? Discharge. ? Swelling. ? Redness. ? Rash. How is this diagnosed? This condition may be diagnosed based on one or more of these: ? Your symptoms and medical history. ? A physical exam. ? Tests, such as: ? Blood tests. ? Tests on a sample of mucus from your lungs (sputum sample). ? Tests on a poop (stool) sample. ? Tests on a swab of body fluids or a skin sore (lesion). How is this treated? Viruses can be hard to treat because they live within cells. Antibiotics do not treat viruses because these medicines do not get inside cells. Treatment for a viral illness may include: ? Resting and drinking a lot of fluids. ? Medicines to treat symptoms. These can include hkqk-syw-hykfwir medicine for pain and fever, medicines for cough or congestion, and medicines for diarrhea. ? Antiviral medicines. These medicines are available only for certain types of viruses. Some viral illnesses can be prevented with vaccinations. A common example is the flu shot. Follow these instructions at home: Medicines ? Take kfoh-jyh-cvorkhy and prescription medicines only as told by your health care provider. ? If you were prescribed an antiviral medicine, take it as told by your provider. Do not stop taking the antiviral even if you start to feel better. ? Know when antibiotics are needed and when they are not needed. Antibiotics do not treat viruses. You may get an antibiotic if your provider thinks that you may have, or are at risk for, a bacterial infection and you have a viral infection. ? Do not ask for an antibiotic prescription if you have been diagnosed with a viral illness. Antibiotics will not make your illness go away faster. ? Taking antibiotics when they are not needed can lead to antibiotic resistance. When this develops, the medicine no longer works against the bacteria that it normally fights. General instructions ? Drink enough fluids to keep your pee (urine) pale yellow. ? Rest as much as possible. ? Return to your normal activities as told by your provider. Ask your provider what activities are safe for you. How is this prevented? To lower your risk of getting another viral illness: ? Wash your hands often with soap and water for at least 20 seconds. If soap and water are not available, use hand drilling assistant. ? Avoid touching your nose, eyes, and mouth, especial (more content not included)... [facility] 07-09-2024 Evaluation + Plan note Extrac cherie from: Title:ED Note Author:Davidson MTZ Ambrose M. Date:1 Malaise (R53.81: Other malai se) Viral syndrome (B34.9: Viral infection, unspecified) Orders: Basic Metabolic Panel Beta hCG Qual CBC w/ Auto Diff ED Cardiac Monitoring eGFR Hepatic Function Panel Oxygen Saturation Oxygen Therapy PT & PTT Saline Lock Insert Troponin 0 Hr. Troponin 1 Hr. XR Chest Single View [facility] 06-13-2024 [facility] Discharge summary Author Salazar Cabrera [facility] October 09, 2023 6:42pm Note Date/Time October 09, 2023 1: 22pm [facility] [address] [place] [address] Discharge Summary Signed Patient: Rachel Mcgarry MR#: [id number] : 1980 Acct:[id number] Age/Sex: 43 / F Adm Date: 4 Loc: Room: [address] [place] [address]: Salazar Cabrera DO Copies to: OLEG Sharp APRN Shawn J Warner, DO~ Providers Date of Admission: 10/08/23 Date of Discharge: 10/09/23 Discharging Provider: Salazar Cabrera Additional Discharging Provider: Salazar Cabrera Primary Care Provider: Ajit Pettit Consults: 10/07/23 23:27 Consult to Adult Hospitalist Routine 10/08/23 07:21 Consult to remediation technician Routine 10/09/23 06:50 Consult to Obstetrics Routine [...] abdominal pain. CT abdomen pelvis done at [place] showed nonspecific hyperemia and thickening of the small bowel distally suggestive of enteritis but nonacute otherwise and no postoperative complications were noted. She was transferred to [facility] for evaluation by recent surgical team. She was noted to have elevated lactate and given IV hydration as well as Zosyn. Lactate resolved with hydration. She had repeat CTdone at [place] with bloating and pain increasing with liquid intake unchangedfrom previous and no surgical complications again noted. LIME KILN AND RECAUSTICIZING OPERATOR services followed ongoing through hospital stay. She was also seen by psychiatry with increase insertraline due to reports of depression and suicidal thoughts, should follow-up with [facility] behavioral health after discharge. Date of discharge [...] % (Auto) 70.1, Lymph % (Auto) 16.5, [place] % (Auto) 9.5, Eos % (Auto) 3.5, Baso % (Auto) 0.4, Nucleat RBC Rel Count 0.1, Neut # (Auto) 9.6 H, Lymph # (Auto) 2.2, Elmore # (Auto) 1.3 H, Eos # (Auto) [...] Follow Up: [facility] [Provider Group] [facility] [facility] [place] [Outside] (call to schedule follow up appointment) Carri Manuel DO [Active Staff - D.O.] - (keep appointment as schedule) Ajit Pettit NP-C [Primary Care Provider] - (call to schedule follow up appointment post hospitalization) Documented By: Ilene Lopez APRN 03/27 1322 Signed By: <Electronically signed by CHRISTINA Lopez> 10/09/23 1627 <Electronically signed by Salazar Cabrera DO> 10/09/23 1842 [facility] Work Phone: 1(490) 751-302101-06-2024 Progress note Author BONG Velez [facility] October 09, 2023 8:22am Note Date/Time October 09, 2023 8: 22am [facility] [address] [place], [place] [id number] Progress Note Signed Patient: Rachel Mcgarry MR#: [id number] : 1980 Acct:[id number] Age/Sex: 43 / F Adm Date: 4 Loc: Room: [address] [place] [address] Type: ADM IN Attending Dr: Salazar Cabrera [...] % (Auto) 70.1, Lymph % (Auto) 16.5, [place]more % (Auto) 9.5, Eos % (Auto) 3.5, Baso % (Auto) 0.4, Nucleat RBC Rel Count 0.1, Neut # (Auto) 9.6 H, Lymph # (Auto) 2.2, Elmore # (Auto) 1.3 H, Eos # (Auto) 0.5 H, Baso # (Auto) 0.1 10/08/23 22:27: POC Glucose 194 10/08/23 18:21: POC Glucose 265, POC Glucose Comment Glu2: cleaned meter 10/08/23 13:07: POC Glucose 166, POC Glucose Comment Glu2: cleaned meter 10/08/23 10:31: Lactic Acid 1.9 10/08/23 08:20: Urine Color [place] A, Urine Appearance Turbid A, Urine pH 5.5, Ur Specific [place] > 1.050 H, Urine Protein 30 H, [...] 17 Signed By: <Electronically signed by BONG Velez> 10/09/23 0822 [facility] Work Phone: 1(834) 249-480901-05-2024 Consult note Author Teo crandall [facility] October 08, 2023 4:59pm Note Date/Time October 08, 2023 11 :30am [facility] [address] [place] [address] Psychiatry Consult Note Signed with Piotr Patient: Rachel Mcgarry MR#: [id number] : 1980 Acct:[id number] Age/Sex: 43 / F Adm Date: 4 Loc: Room: [address] [place] [address] Type : ADM IN Attending Dr: Rosanna [...] negative unless noted below or in HPI [facility] Medical History (Updated 10/08/23 @ 11:22 by [...] Color Urine Appearance Urine pH Ur Specific [place] Urine Protein Urine Glucose (UA) Urine Ketones Urine Occult Blood Urine Nitrite Ur Leukocyte Esterase Urine RBC Urine WBC 10/08/23 08:20 RBC Hgb Hct MCV MCH MCHC RDW Plt Count MPV Sodium Potassium Chloride Carbon Dioxide Anion Gap BUN Creatinine Calcium Total Bilirubin AST ALT Alkaline Phosphatase Total Protein Albumin Urine Color [place] A Urine Appearance Turbid A Urine pH 5.5 Ur Specific [place] > 1.050 H Urine Protein 30 H [...] provided. Documented By: Teo Taylor MD 4 1770 Signed By: <Electronically signed by Teo Taylor MD> 10/08/23 1416 [facility] Work Phone: 1(454) 438-748401-05-2024 Progress note Author Salazar Cabrera [facility] October 08, 2023 4:41pm Note Date/Time October 08, 2023 11 :44am [facility] [address] [place], [place] [id number] Hospitalist Progress Note Signed Patient: Rachel Mcgarry MR#: [id number] : 1980 Acct:[id number] Age/Sex: 43 / F Adm Date: 4 Loc: 3S Room: [address] [place] [address] Type: ADM IN Attending Dr: Rosanna Grullon [...] Tablet PO 10/06/24 22:59 Q6H [facility] Dextrose 0 gm 10/08/23 01:47 [...] Lactic acidosis chronic leukocytosis -CT abdomen pelvis?from [place] showed nonspecific hyperemia and thickening of small bowel distally suggestive of enteritis, nonacute otherwise, no postsurgical complications noted -Repeat CT abdomen pelvis?increasing bibasilar atelectasis, fatty liver, no bowel or urinary tract obstruction, no pelvic hematoma or significant free fluid, otherwise unchanged CT abdomen pelvis -Initial lactate 3.0--> 2.6--> 2.0--> 1.9 -Continue Zosyn, IVF. Afebrile. Scheduled dicyclomine. Symptom management -Advance diet to full liquid -LIME KILN AND RECAUSTICIZING OPERATOR following Depression -Seen by psychiatry with increase [...] signed by Salazar Cabrera DO> 10/08/23 1641 [facility] Work Phone: 1(859) 690-421601-05-2024 History and physical note Author BONG Velez [facility] October 08, 2023 1:07pm Note Date/Time October 08, 2023 7: 21am [facility] [address] [place], [place] [id number] TUBE BLOWER History & Physical Signed with Addenda Patient: Rachel Mcgarry MR#: [id number] : 1980 Acct:[id number] Age/Sex: 43 / F Adm Date: 4 Loc: Room: [address] [place] [address] Type: ADM IN Attending Dr: Beltran Velez MD Copies to: Ajit Pettit, 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 Beltran Velez MD-LINDA~ ADDENDUM1 1300:Repeat CT scan abdomen /pelvis today without obstruction,pelvic abcess or hematoma Lactic acid,WBC and urine output have all improved. She is tolerating po without nausea/emesis -but some abdominal distension, without rebound. Psychiatrist has increased her SSRI and will follow up as out pt. Hospitalist feels that she has enteritis. She is cleared from the LIME KILN AND RECAUSTICIZING OPERATOR post op standpoint and we are signing off. Pt will be transferred to a medical floor for continued management. Addendum Documented By: BONG Velez 10/08/23 1307 Addendum Signed By: <Electronically signed by BONG Velez> 10/08/23 1307 Date of Service: 10/08/2023 LIME KILN AND RECAUSTICIZING OPERATOR - HPI History of Present Illness Chief Complaint: Abdominal pain with emesis Planned Procedure: S/P TLH 09/28/2023 HPI: Rachel presented to [place] yesterday with abdominal pain/distension and emesis.Her lactic acid was 3.0,WBS 20k in ER,Sodium [address] scan compatible with enteritis. She was transferred to [facility] for observation and treatment. Pt with Chronic leukocytosis as followed by hematology for 2 years Review of Systems Review of Systems All other systems reviewed & are negative unless noted below or in HPI [facility] Medical History (Updated 10/08/23 @ 11:22 by [...] @ 150 mls/hr IV .Q6H40M [facility] Stop: 10/06/24 22:59 Last Admin: 10/08/23 01:10 Dose: 125 mls/hr Piperacillin Sod/Tazobactam Sod (Zosyn) 3.375 gm in 100 mls @ 200 mls/hr IV Q6HS Last Admin: 10/08/23 03:45 Dose: 200 mls/hr Ibuprofen (Ibuprofen 600 Mg Tablet) 600 mg PO Q6H [facility] Stop: 10/07/24 01:59 Last Admin: 10/08/23 03:32 Dose: Not Given Insulin Aspart (Insulin Aspart 300 Units/3 Ml Insuln.Pen) 0 units SUBCUT Q6HR [facility]; Protocol Stop: 10/07/24 05:59 Last Admin: 10/08/23 06:27 Dose: 1 units Ondansetron HCl (Ondansetron 4 Mg/2 Ml Vial) 4 mg IV-PUSH Q8H PRN PRN Reason: Nausea And Vomiting Stop: 10/06/24 22:53 Ondansetron HCl (Ondansetron Odt 4 Mg Tab.Rapdis) 4 mg PO Q8HR PRN PRN Reason: Nausea And Vomiting Stop: 10/06/24 22:53 LIME KILN AND RECAUSTICIZING OPERATOR - Exam Physical Exam Vital signs: Temp [...] Present normal affect, suicidal ideation and depressed LIME KILN AND RECAUSTICIZING OPERATOR - Results Laboratory Results - Last 48 [...] Albumin 3.7, Globulin 2.4, Albumin/Globulin Ratio 1.5 LIME KILN AND RECAUSTICIZING OPERATOR - A/P (1) Abdominal pain: Plan: Post [...] 19 Signed By: <Electronically signed by BONG Velez> 10/08/23 6547 [facility] Work Phone: 1(458) 209-410901-05-2024 Consult note Author Rosanna Grullon [facility] October 08, 2023 7:00am Note Date/Time October 08, 2023 1: 06am [facility] [address] [place] [address] Hospitalist Consult Note Signed Patient: Rachel Mcgarry MR#: [id number] : 1980 Acct:[id number] Age/Sex: 43 / F Adm Date: 4 Loc: 3S Room: [address] [place] [address] Type: ADM IN Attending Dr: Beltran Velez MD Copies to: MD Ajit Davis, MEREDITH-C CHRISTINA Echavarria MD-NOMS~ HPI DATE OF CONSULTATION: 10/08/23 REQUESTING PROVIDER: Beltran Velez Consult Narrative Reason for Consult: elevated lactic acid, T2DM, leukocytosis HPI: Ms. Mcgarry is a 43-year-old female with a PMH of T2DM, seizure disorder, recent hysterectomy that was transferred here to [facility] to obstetrics for abdominal pain. Hospitalist team has been consulted for management of T2DM, elevated lactic acid and leukocytosis. Patient arrived to the [facility] emergency room via EMS for lower abdominal [...] 28. She been seen in the [facility] emergency room for vaginal infection [...] unless noted in the HPI or below. [facility] Medical History (Updated 10/08/23 @ 01:40 by [...] 23:00 Lactated Ringers IV 10/06/24 22:59 .Q8H [facility] Piperacillin Sod/Tazobactam Sod 3.375 gm in 100 mls @ 200 mls/hr 10/07/23 23:00 Zosyn IV Q6H [facility] Ibuprofen 600 mg 10/08/23 02:00 Ibuprofen 600 [...] 10/10/[address]received at the [facility] Documented By: Namrata Munoz APRN 10/08/23 0106 Signed By: <Electronically signed by CHRISTINA Munoz> 10/08/23 0153 <Electronically signed by Rosanna Grullon MD> 10/08/23 0700 [facility] Work Phone: 1(885) 859-297608-02-2023 [facility] Evaluation note* Encounter Date Diagnosis [...] activities and movements while managing her pain. [employer] Other 01-31-2023 Evaluation note* Encounter Date Diagnosis [...] cervical spine to further evaluate her pain. [employer] Other 01-30-2023 Hospital Discharge instructions Patient Education [...] to keep your urine pale yellow. ?Take wkzh-jki-qanpqhm or prescription medicines. ?Eat foods that are high in fiber, such as beans, whole grains, and fresh fruits and vegetables. ?Limit foods that are high in fat and processed sugars, such as fried or sweet foods. General instructions Take tbmc-uoc-nzqdpnz and prescription medicines only as told by [...] the muscles that help control urination. Take pylx-zoa-zxsshxc and prescription medicines only as told by your health care provider. Contact a health care provider if your symptoms do not improve or get worse. This information is not intended to replace advice given to you by your health care provider. Make sure you discuss any questions you have with your health care provider. Document Released: 07/17/2010 Document Revised: 03/30/2019 Document Reviewed: 03/30/2019 [employer] Patient Education 2020 [email or web address]. Follow Up Care 10/22/2022 11:17:07 With:JORDANA BALDERAS, Joshua Dempsey, URL Address: [address] [facility] [address] [place] [phone]- Business (1) When: Unknown [facility] [place] [id number] Hospital Discharge instructions Patient Education 08/24/2022 15:50:28 [...] Care 07/31/2022 12:32:41 With:Joshua SILVEIRA Address: [address] [facility] [address] [address]- Business (1) When:6 weeks Comments:Call for followup appointment. Monitor the urinary low after the dilation today. Have a great Thanksgiving. [facility]10-28-2022 Hospital Discharge instructions Patient Education 07/31/2022 [...] including vitamins, herbs, eye drops, creams, and gqhg-jph-jtffiqo medicines. ?Whether you are or may be [...] 07/17/2008 Document Revised: 01/09/2020 Document Reviewed: 07/25/2018 [employer] Patient Education 2020 [email or web address]. Follow Up Care 07/24/2022 16:53:57 With:JORDANA BALDERAS, Joshua Dempsey, URL Address: [facility] [employer] [address] [place], [place] [id number]- When: Unknown Comments:Cysto/ Urodynamics [facility] [place] [id number] Evaluation note* Encounter Date Diagnosis Assessment Notes [...] and GT bursa injection in the future. [employer] Other 04-27-2022 Evaluation note* Encounter Date Diagnosis [...] progress notes from her referring physician at [facility]. I also independently reviewed previous MRI [...] - M79.7) Continue with medication management through [facility]. I will also refer her to [...] negative findings were considered in medical decision-making. [employer] Other 04-13-2022 Evaluation note* Encounter Date Diagnosis Assessment Notes Treatment Notes Treatment Clinical Notes Jan, Neck pain (ICD-10 - M54.2) I really do not see any surgical intervention that would be warranted in either her cervical or lumbar spine. I think continue conservative therapy is warranted. Jan, Low back pain at multiple sites (ICD-10 - M54.50) Jan, Fibromyalgia (ICD-10 - M79.7) [employer] Other conswae note Author Jasmin Velázquez [facility] May 27, 2022 11:47am Note Date/Time May 27, 2022 11 :30am [facility] [place] [address] Hem/Onc Consult Note - OP Signed Patient: Rachel Mcgarry MR#: [id number] : 1980 Acct:[id number] Age/Sex: 42 / F Type: REG RCR Copies to: [facility]~ HPI Date/Time of Service: Date of Service: 05/27/2022 Time of Service: 11:29 Referring Provider/PCP: Referring Provider: PCP: Services [facility] - History of Present Illness Reason for Consultation: Leukocytosis Chief Complaint: Patient is here for a referral from Ajit Pettit for leukocytosis. [facility] labs. Patient states that she has [...] the process of being referred to a cafe operator. Patient smokes averaging half pack to 1 [...] been very well within the normal range [facility] - Medical History Medical History: Medical History [...] (Last Updated 05/27/22 @ 08:58 by Gladys Jnag) Other Cancer Heart attack - Social History [...] cancer. Patient is being referred to a cafe operator. We instructed her to call back if there is any concern for further definitive guidance and recommendations - Time with Patient Coordination of Care & Counseling Time: Greater than 50% of time spent with patient was for coordination of care (as documented) and ckbf-cc-bnst counseling of patient and/or family. Dictated By: Jasmin Velázquez MD DD/ 1129 Signed By: <Electronically signed by Jasmin Velázquez MD> 05/27/22 1147 [facility] Work Phone: Evaluation + Plan note Future Appointments Appointment Date:08/18/2022 08:00:00 AM Scheduled Provider: Location:[facility] Appointment Type:Urology CALL PAT FT Appointment Date:08/24/2022 02:00:00 PM Scheduled Provider: Location:[facility] Appointment Type:Urology FT Appointment Date:08/24/2022 03:00:00 PM Scheduled Provider: Location:[facility] Appointment Type:Urology FT [facility] Evaluation + Plan note Future Appointments Appointment Date:09/29/2022 10:15:00 AM Scheduled Provider:Joshua SILVEIRA MD Location:On license of [facility] App[facility]ments Appointment Date:12/29/2022 10:45:00 AM Scheduled Provider:Joshua SILVEIRA MD Location:On license of [facility] Appointment Type:URO Office Visit [facility] evaluation noteNo Assessments Information Available [facility] InformationNort Kahub Other evaluation note* Diagnosis Onset Date Resolution Status Iron deficiency acute Leucocytosis acute Right ovarian cyst acute [facility] Work Phone: evaluation noteNo assessment information available [facility] Work Phone: evaluation note* Diagnosis Onset Date Resolution Status Abdominal pain acute Enteritis acute History of depression acute History of leukocytosis acut e IBS (irritable bowel syndrome) acute Leucocytosis acute Metabolic acidosis acute S/P hysterectomy acute T2DM (type 2 diabetes mellitus) acute [facility] Work Phone: Evaluation note* Diagnosis Onset Date Resolution Status Chronic pain acute Lumbosacral spondylosis acut e Sacroiliitis acute [facility] Work Phone: Evaluation note* Diagnosis Onset Date Resolution Status Chronic pain acute Lumbosacral spondylosis acut e Sacroiliitis acute Chronic pain acute Lumbar radiculopathy acute Lumbosacral spondylosis acut e Sacroiliitis acute [facility] Work Phone: Evaluation note* Diagnosis Onset Date Resolution Status Chronic pain acute Lumbosacral spondylosis acut e Sacroiliitis acute Chronic pain acute Lumbar radiculopathy acute Lumbosacral spondylosis acut e Sacroiliitis acute Chronic pain acute Lumbar radiculopathy acute Lumbosacral spondylosis acut e Sacroiliitis acute [facility] Work Phone: Evaluation note* Diagnosis Onset Date Resolution Status Chronic pain acute Lumbar radiculopathy acute Lumbosacral spondylosis acut e Sacroiliitis acute [facility] Work Phone: History and physical note Author Abi Sunshine [facility] March 16, 2024 8:19am Note Date/Time March 16, 2024 8:20 am [facility] [address] [place] [address] Gastroenterology H&P Signed Patient: Rachel Mcgarry MR#: [id number] : 1980 Acct:[id number] Age/Sex: 44 / F Adm Date: 4 Loc: Room: Type: [facility] Attending Dr: Abi Sunshine DO Copies to: [...] <Electronically signed by Abi Sunshine DO> 03/16/24818 [facility] Work Phone: History general Narrative - Reported* [...] infection, bowel i nfection and flu 2011 [employer] Other History general Narrative - Reported* Type [...] infection, bowel i nfection and flu 2011 [employer] Other Hospital course Narrative No data available for this section [facility] Hospital Discharge instructions No data available for this section [facility] Hospital Discharge instructions Additional Instructions DISCHARGE [...] in an emergency, call the office at [[phone]]. TODAY -Take it easy the rest of [...] FOLLOW UP -Please call the office at [phone] to arrange an appointment to see me in 2 weeks [ ][facility] Work Phone: Hospital Discharge instructions Additional Instructions Follow any previous post-op orders.[facility] Work Phone: Progress note No data available for this section [facility] Reason for visit NarrativeReferral Ajit Pettit NP Lumbar DiscNorth Kahub Other Summary Purpose Family History Relationship Condition Age at Onset Recorded Date/T [...] of ovary Unknown father Unknown Advance Directives Advance Directive Response Recorded Date/ Time Advance [...] E55.9 E11.9 M54.16 M51.06 M41.9 R52 E78.00 sent by doc Reason for Visit Chronic pain Lumbar radiculopathy Lumbosacral spondylosis Sacroiliitis Assessments No Assessments Information AvailableNo Assessments Information AvailableNo Assessments Information AvailableNo Assessments Information AvailableNo Assessments Information AvailableNo Assessments Information Available Additional Source Comments INFORMATION SOURCE (unrecogn ized section and content) DATE CREATED AUTHOR 07/25/2019 [facility] l DATE CREATED AUTHOR AUTHOR'S ORGANIZ ATION 02/15/2023 [facility] DATE CREATED AUTHOR AUTHOR'S ORGANIZ ATION 10/21/2023 [facility] EPIC DATE CREATED AUTHOR AUTHOR'S ORGANIZ ATION 07/10/2024 [facility] DATE CREATED AUTHOR AUTHOR'S ORGANIZ ATION 07/14/2024 [facility] DATE CREATED AUTHOR AUTHOR'S ORGANIZ ATION [facility]20[facility] REASON FOR VISIT (unrecogniz ed section and content) LEFT L3,4 TRANSFORAMINAL EPIDURAL STEROID INJ/ELREF BY [facility] FOR LUMBAR DISC HERNIATIONFOLLOW UP AFTER LEFT LTRBILATERAL SACROILIAC JOINT INJECTIONINCREASE BACK PAIN RADIATING LLELEFT L3 AND L4 TRANSFORAMINAL EPIDURAL STEROID INJECTIONF/U INCREASE IN LOW BACK PAIN AND LEFT LE WEAKNESS-LOST TO FOLLOW UP LAST TIMEL4- 5 EPIDURAL STEROID INJ/ELRIGHT SACROILIAC JOINT INJ/EL Care Teams (unrecognized sec tion and content) Personnel Name: AJIT PETTIT CNP Address: Address: [address] [place], [place] [address] Team Status: Inactive Member Role Status Dates [facility] Primary Care Provider Active OLEG Sharp Attending Provider Active Team Status: Active Member Role Status Dates Jasmin Velázquez MD Attending Provider Active [facility] [facility] Primary Care Provider Active Team Status: Inactive Member Role Status Dates Services [facility] Primary Care Provider Titus Alvarado DO Emergency Provider Active Team Status: Inactive Member Role Status Dates Services [facility] Primary Care Provider OLEG Condon Attending Provider Active Team Status: Inactive Member Role Status Dates Services [facility] Primary Care Provider Titus Bergeron APRN Emergency Provider Active Team Status: Active Member Role Status Dates Services [facility] Primary Care Provider Ac tive Team Status: Inactive Member Role Status Dates Ajit E Spasic , 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 Attending Provider Active Services [facility] Primary Care Provider Ac tive Team Status: Inactive Member Role Status Dates Services [facility] Primary Care Provider Ac tive Kyler Miramontes MD Attending Provider Active Team Status: Inactive Member Role Status Dates Ajit E Spasic , 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 Attending Provider Active Team Status: Active Member Role Status Dates . [facility] Primary Care Provider Active Team Status: Inactive Member Role Status Dates Kyler Miramontes MD Attending Provider Active . [facility] Primary Care Provider Active Team Status: Inactive Member Role Status Dates Ajit E Spasic , 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 Attending Provider Active NON STAFF Primary Care Provider Active Team Status: Active Member Role Status Dates Ajit E Spasic , 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 Primary Care Provider Active Team Status: Inactive Member Role Status Dates Ajit E Spasic , 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 Primary Care Provider, Attending Provider Active Team Status: Inactive Member Role Status Dates Kyler Miramontes MD Attending Provider Active Ajit E Spasic , 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 Primary Care Provider Active Team Status: Inactive Member Role Status Dates Ajit E Spasic , 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 Primary Care Provider Active Kyler Miramontes MD Attending Provider Active Team Status: Inactive Member Role Status Dates Ajit E Spasic , 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 Primary Care Provider Active Carri Manuel DO Attending Provider Active Team Status: Inactive Member Role Status Dates Beltran Velez MD Admit Provider Active Pastora Calderon , JULIANA Other Provider Active Sarina Danielle , JULIANA Other Provider Active Bernie Brar , JULIANA Other Provider Active Karuna Flor , RN Other Provider Active Lakshmi Manzano , JULIANA Other Provider Active Tracy Sun , JULIANA Other Provider Active Silvia Galeas , PROFESSOR OF RADIOLOGY Other Provider Active Evan Jackson , DO Other Provider Active Familia Blair MD Other Provider Active Brandon Dowling , DO Other Provider Active Florin Cruz MD Other Provider Active Vivi Holloway MD Other Provider Active Ilene Lopez , PROFESSOR OF RADIOLOGY Other Provider Active Lilly Alexandre MD Other Provider Active Rangel Tyler MD Other Provider Active Aidan Cardenas MD Other Provider Active Holden De La Cruz MD Other Provider Active Leodan Catalan , DO Other Provider Active Palma Bright MD Other Provider Active Gabriele Vasquez MD Other Provider Active Karina Colvin , 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 Other Provider Active Gaurav Peraza MD Other Provider Active Mike Guzman MD Other Provider Active Antonio Teague MD Other Provider Active Jorge Galdamez MD Other Provider Active Kourtney Longoria , DO Other Provider Active Bola Sullivan , DO Other Provider Active Lazaro Dunne , DO Other Provider Active Elvira Nava , PROFESSOR OF RADIOLOGY Other Provider Active Salazar Cabrera , DO Attending Provider, Other Provider Active Naila Lema MD Other Provider Active Namrata Munoz , PROFESSOR OF RADIOLOGY Other Provider Active Carole Lundy , PROFESSOR OF RADIOLOGY Other Provider Active Rosanna Grullon MD Other Provider Active Girish Tolentino MD Other Provider Active Beryl Holguin , PROFESSOR OF RADIOLOGY Other Provider Active Mabel Lackey , DO Other Provider Active Talita Noel , JULIANA Other Provider Active Teo Taylor MD Other Provider Active Ajit Cat Pettit , 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 Primary Care Provider Active Team Status: Inactive Member Role Status Dates Ajit Cat Millanc , 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 Primary Care Provider Active Diego Noble , DO Emergency Provider Active Team Status: Inactive Member Role Status Dates Ajit Millanc , 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 Attending Provider Active Start: January 18, 2024 End: January 18, 2024 Team Status: Inactive Member Role Status Dates Ajit Millanc , 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 Primary Care Provi tirso, Attending Provider Active Start: January 21, 2024 End: January 21, 2024 Team Status: Inactive Member Role Status Dates Ajit Cat Lariossic , 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 Primary Care Provi tirso, Attending Provider Active Start: February 04, 2024 End: February 04, 2024 Team Status: Inactive Member Role Status Dates Ajit Cat Spasic , 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 Primary Care Provi tirso, Attending Provider Active Start: February 09, 2024 End: February 09, 2024 Team Status: Inactive Member Role Status Dates Ajit E Harrietsic , 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 Primary Care Provider Active Start: February 21, 2024 End: February 21, 2024 Kyler Miramontes MD Attending Provider Active Sta rt: February 21, 2024 End: February 21, 2024 Team Status: Inactive Member Role Status Dates Ajit Pettit , 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 Primary Care Provider Active Start: March 01, 2024 End: March 01, 2024 Kyler Miramontes MD Attending Provider Active Sta rt: March 01, 2024 End: March 01, 2024 Team Status: Active Member Role Status Dates Ajit Pettit , 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 Primary Care Provider Active Start: March 01, 2024 Kyler Miramontes MD Attending Provider, Other Provider Active Start: March 01, 2024 Team Status: Inactive Member Role Status Dates Ajit Pettit , 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 Primary Care Provider Active Start: March 02, 2024 End: March 02, 2024 Kyler Miramontes MD Attending Provider Active Sta rt: March 02, 2024 End: March 02, 2024 Team Status: Inactive Member Role Status Dates Ajit Pettit 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 Primary Care Provider Active Start: March 08, 2024 End: March 08, 2024 Kyler Miramontes MD Attending Provider Active Sta rt: March 08, 2024 End: March 08, 2024 Team Status: Inactive Member Role Status Dates Ajit Pettit , 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 Primary Care Provider Active Start: March 16, 2024 End: March 16, 2024 Abi Sunshine DO Attending Provider Active St art: March 16, 2024 End: March 16, 2024 Team Status: Active Member Role Status Dates Ajit Pettit , 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 Primary Care Provider Active Start: March 16, 2024 Abi Sunshine DO Attending Provider, Other Provider Active Start: March 16, 2024 Team Status: Inactive Member Role Status Dates Ajit Pettit 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 Primary Care Provider Active Start: April 11, 2024 End: April 11, 2024 Alicia Villalobos NP Attending Provider Active Start: April 11, 2024 End: April 11, 2024 Team Status: Inactive Member Role Status Dates Ajit Pettit , 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 Attending Provider Active Start: May 16, 2024 End: May 16, 2024 Team Status: Inactive Member Role Status Dates Ajit Pettit 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 Primary Care Provi tirso, Attending Provider Active Start: June 08, 2024 End: June 08, 2024 Team Status: Inactive Member Role Status Dates [facility] Primary Care Provi tirso, Attending Provider Active Start: July 04, 2024 End: July 04, 2024 Team Status: Inactive Member Role Status Dates [facility] Primary Care Provider Active Start: July 06, 2024 End: July 06, 2024 Jono Ferrari PA-C Emergency Provider Active Start: July 06, 2024 End: July 06, 2024 Goals (unrecognized section and content) Goals [...] BE BASED ON THE PRIMARY CLINICAL RECORDS. [facility] [employer] provides no warranty or guarantee of the accuracy or completeness of information in this document.
[2024-07-15 23:28] LABS: Basophils Absolute Auto 0.1 10^3/uL (0.0-0.1); Basophils Percent Auto 0.5 % (0.2-2.0); Eosinophils Absolute Auto 0.1 10^3/uL (0.0-0.7); Eosinophils Percent Auto 0.8 % (0.9-7.0); Hematocrit 40.2 % (36.0-48.0); Hemoglobin 13.8 g/dL (12.0-16.0); Immature Granulocytes Abs Auto 0.04 10^3/uL (0.00-0.03); Immature Granulocytes Pct Auto 0.3 % (0.0-0.5); Lymphocytes Absolute Auto 3.6 10^3/uL (1.2-3.8); Lymphocytes Percent Auto 27.8 % (20.5-60.0); Mean Corpuscular HGB Conc 34.3 g/dL (29.9-35.2); Mean Corpuscular Hemoglobin 30.3 pg (26.7-34.0); Mean Corpuscular Volume 88.2 fL (81.0-99.0); Mean Platelet Volume 8.9 fL (9.5-13.5); Monocytes Absolute Auto 0.7 10^3/uL (0.3-0.8); Monocytes Percent Auto 5.6 % (1.7-12.0); Neutrophils Absolute Auto 8.5 10^3/uL (1.4-6.5); Platelet Count 337 10^3/uL (150-450); Red Blood Count 4.56 10^6/uL (4.20-5.40); Red Cell Distribution Width 12.4 % (11.0-15.0); White Blood Count 13.1 10^3/uL (4.0-11.0)
[2024-07-15 23:38] LABS: Anion Gap 15.3; BUN Creatinine Ratio 16.7; Calcium 9.3 mg/dL (8.5-10.1); Carbon Dioxide 24.8 mmol/L (21.0-32.0); Chloride 98 mmol/L (98-107); Estimated GFR (African America >60 (>=60 mL/min/1.73m^2); Estimated GFR (Non-African Ame >60 (>=60 mL/min/1.73m^2); Glucose 216 mg/dL (74-106); Potassium 4.1 mmol/L (3.5-5.1); Sodium 134 mmol/L (136-145)
[2024-07-15 23:53] LABS: Bilirubin Urine NEGATIVE (NEGATIVE); Blood Urine NEGATIVE (NEGATIVE); Clarity Urine CLEAR (CLEAR); Color Urine LT. YELLOW (YELLOW); Glucose Urine UA 500 mg/dL (NEGATIVE); Ketones Urine NEGATIVE (NEGATIVE); Leukocyte Esterase Urine NEGATIVE (NEGATIVE); Nitrite Urine NEGATIVE (NEGATIVE); Protein Urine NEGATIVE (NEG/TRACE); Specific Gravity Urine <=1.005 (1.005-1.025); Urobilinogen Urine 0.2 EU/dL (0.2-1.0); pH Urine 6.5 (5.0-9.0)
[2024-07-16] LABS: Bacteria Urine SMALL #/HPF (NONE SEEN); RBC Urine 0-2 #/HPF (0-2); WBC Urine 0-2 #/HPF (NONE SEEN)
[2024-07-16 00:01] LABS: Amorphous Sediment Urine MODERATE; Cast Seen? NONE SEEN #/LPF (NONE SEEN); Crystals Seen? Seen #/HPF (None Seen); Mucus Urine NONE SEEN (NONE SEEN); Squamous Epithelial Cell Urine FEW #/LPF (NONE/RARE); Urine Culture Indicated YES
== END 2024-07-16 00:08 | disposition home or self-care (01) ==
PROVIDERS: Emergency Provider Emergency Medicine
DX: R42 Dizziness and giddiness (principal); F17.200 Nicotine dependence, unspecified, uncomplicated
CPT/HCPCS: 36415; 71045; 80048; 81001; 85025; 87086; 93005; 99285

== ENCOUNTER 2024-08-07 10:33 | Outpatient (OUT) | payer OTHER, SELFPAY ==
--- NOTE | 2024-08-07 10:37 | US_ITS ---
[address] [address] Patient Name: RACHEL MCGARRY MRN: [id number] date: 1980 Sex: F Assigned Patient Location: Current Patient Location: [place] Accession/Order Number: [id number] Exam Date: 08/07/2024 10:40 Report Date: 08/07/2024 13:56 At the request of: AJIT PETTIT Procedure: US carotid duplex BI DUPLEX ULTRASOUND EXAMINATION OF THE CAROTID ARTERIES. COMPARISON: None. HISTORY / INDICATIONS: Neck pain and stiffness. TECHNIQUE: Bilateral common carotid arteries, extracranial internal and external carotid arteries are evaluated with chu-scale imaging, color Doppler, and spectral analysis according to a standard protocol. ICA/CCA ratios are calculated with community health program representative peak-systolic velocities and recorded. Vertebral arteries are evaluated in one segment to evaluate for patency and character of flow. Comparison with previous evaluation is performed when available. Unless otherwise specified, all velocities are measured in cm/sec. Carotid stenosis is reported according to validated velocity parameters, similar to NASCET criteria. FINDINGS: Right Carotid: No significant plaque was noted. Velocity measurements as follows: Internal Carotid Artery 66/30 and 82/40. ICA/CCA ratio: 1.2. Left Carotid: No significant plaque was noted. Velocity measurements as follows: Internal Carotid Artery 69/34 and 90/44. ICA/CCA ratio: 1.6. Antegrade flow was seen in both vertebral arteries. CONCLUSION: 1. Less than 50% stenosis of the right ICA. 2. Less than 50% stenosis of the left ICA. 3. Vertebral arteries are patent and demonstrate antegrade flow. Electronically authenticated by: Luke CAREY Date: 08/07/2024 13:56
== END 2024-08-07 10:34 | disposition home or self-care (01) ==
LOC: US 10:33
PROVIDERS: Visit Provider Nurse Practitioner Adult Health
DX: G90.01 Carotid sinus syncope (principal)
CPT/HCPCS: 93880

== ENCOUNTER 2024-10-22 03:27 | Emergency (ER) | payer OTHER, SELFPAY ==
[2024-10-22 03:36] VITALS: BP 109/85; PULSE 85; TEMP 36.7; O2SAT 98; BMI 25.6
--- OUTSIDE RECORDS SUMMARY | 2024-10-22 03:44 | XMS_ITS | CCD ---
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 38.9 % Normal 34.0-46.0 [facility] Comment on above: Performed By: #### 2 [id number] #### [facility] [address] [place] [address] Hemoglobin (Bld) [Mass/Vol] 13.4 g/dL Normal 12.0-16.0 [facility] Comment on above: Performed By: #### 2 534175 #### [facility] [address] [place] [address] Lymphocytes (Bld) [#/Vol] 3.7 E9/L Normal 1.0-4.0 [facility] Comment on above: Performed By: #### 2 623545 #### [facility] [address] [place] [address] Lymphocytes/100 WBC (Bld) 24.7 % Normal 14.0-50.0 [facility] Comment on above: Performed By: #### 2 054844 #### [facility] [address] [place] [address] MCH (RBC) [Entitic mass] 30.4 pg Normal 27.0-34.0 [facility] Comment on above: Performed By: #### 2 [id number] #### [facility] [address] [place] [address] MCHC (RBC) [Mass/Vol] 34.5 g/dL Normal 31.4-36.0 [facility] Comment on above: Performed By: #### 2 [id number] #### [facility] [address] [place] [address] MCV (RBC) [Entitic vol] 88.1 fL Normal 80.0-100.0 [facility] Comment on above: Performed By: #### 2 [id number] #### [facility] [address] [place] [address] Monocytes (Bld) [#/Vol] 0.7 E9/L Normal 0.2-1.0 [facility] Comment on above: Performed By: #### 2 104096 #### [facility] [address] [place] [address] Neutrophils (Bld) [#/Vol] 10.3 E9/L High 2.0-7.5 [facility] Comment on above: Performed By: #### 2 392331 #### [facility] [address] [place] [address] Neutrophils/100 WBC (Bld) 69.1 % Normal 36.0-75.0 [facility] Comment on above: Performed By: #### 2 612317 #### [facility] [address] [place] [address] Platelet mean volume (Bld) [Entitic vol] 8.3 fL Normal 6.4-10.8 [facility] Comment on above: Performed By: #### 2 [id number] #### [facility] [address] [place] [address] Platelets (Bld) [#/Vol] 319.0 E9/L Normal 150. 0-500. 0 [facility] Comment on above: Performed By: #### 2 [id number] #### [facility] [address] [place] [address] RBC (Bld) [#/Vol] 4.4 E12/L Normal 4.3-5.9 [facility] Comment on above: Performed By: #### 2 693483 #### [facility] [address] [place] [address] WBC corrected for nucl RBC Auto (Bld) [#/Vol] 14.9 E9/L High 4.0-11.0 [facility] Comment on above: Result Comment: Kaela pheral smear review performed. Performed By: #### 2 [id number] #### [facility] [address] [place] [address] CHEMISTRYOrdered By: SYSTEM SYSTEM on 07-09-2024 Troponin [...] Instructions For Use, Gustavo Patti, May 2018) Urea nitrogen [Mass/Vol] 9 mg/dL Normal 5 - 21 mg/dL Rem[facility] Urea nitrogen/Creatinine [Mass ratio] 18 mg/mg Normal 10 - 20 [facility] COAGULATIONOrdered By: Jazmyne Phillips on 07-09-2024 aPTT Coag (PPP) [Time] 28.9 s Normal 25.1 - 36.5 second(s) [facility] Comment on above: Interpretive Data: P arameter 15 days - 4 weeks 1 - 5 months 6 - 11 months 1 - 5 years 6 - 10 years 11 - 17 years PTT Mean: 35.4 (27.6-45.6) Mean: 33.5 (24.8-40.7) Mean: 32.4 (25.1-40.7) Mean: 31.6 (24.0-39.2) Mean: 31.6 (26.9-38.7) Mean: 31.0 (24.6-38.4) Pediatric Reference ranges were obtained from a study by kari Alonzo alPanchito prepared from 1437 samples obtained at 7 different centers using the same coagulation reagent and instrumentation as [facility]. Currently there are no coagulation studies available worldwide for children to 14 days, and no normal ranges. Heparin therapeutic range (represented by Anti-Factor Xa activity of 0.2 - 0.4 U/mL) corresponds to PTT of 56.6 - 109.0 sec. INR Coag (PPP) [Relative time] 0.85 {INR} Invalid Interpretation Code [facility] Comment on above: Interpretive Data: I NR results are specifically intended to assess patients stabilized on long-term Anticoagulation therapy suggested INR s Less Intensive Anticoagulation 2.0 3.0 Conventional Range 3.0 4.5 PT Coag (PPP) [Time] 9.5 s Normal 9.4 - 1 2.5 second(s) [facility] Comment on above: Interpretive Data: 1 5 days - 4 weeks 1 - 5 months 6 -11 months 1 5 years 6 10 years 11 -17 years Mean: 11.2 (9.5 12.6) Mean: 11.0 (9.7 12.8) Mean: 11.0 (9.8 13.0) Mean: 11.3 (9.9 13.4) Mean: 11.7 (10.0 14.6) Mean: 11.8 (10.0 - 14.1) Pediatric Reference ranges were obtained from a study by kari Alonzo alPanchito prepared from 1437 samples obtained at 7 different centers using the same coagulation reagent and instrumentation as [facility]. Currently there are no coagulation studies available worldwide for children to 14 days, and no normal ranges. ED Clinical Summaryon 2023 ED Clinical Summary ED Clinical Summary [address] [address] ED Clinical Summary Person Information Name: RACHEL MCGARRY [facility] Age: 44 Years : 1980 Sex: Female Language: Cymro PCP: AJIT PETTIT CNP Marital Status: Phone: [phone] Visit Id: Visit Reason: Syncope/Near syncope; Body [...] 07/09/2024 15:24:59 07/09/2024 15:24:59 07/09/2024 15:24:59 ADDRESS: [address] [place] [phone] PHYS DOC NOTES: MEDICAL INFORMATION: Prescriptions Given: [...] up: With: Address: When: AJIT PETTIT [address] [place] [address] [facility] (1) In 3 days 07/12/2024 Comments: Call [...] worsening symptoms. DIAGNOSIS: Malaise; Viral syndrome Normal [facility] ED Clinical Summary ED Clinical Summary [address] [address] ED Clinical Summary Person Information Name: RACHEL MCGARRY [place] Age: 44 Years : 1980 Sex: Female Language: Cymro PCP: AJIT PETTIT CNP Marital Status: Phone: [phone] Visit Id: Visit Reason: Syncope/Near syncope; Body [...] 07/09/2024 13:32:08 Discharge Request 07/09/2024 14:17:25 ADDRESS: [address] [place] [phone] PHYS DOC NOTES: MEDICAL INFORMATION: Prescriptions Given: [...] With: Address: When: AJIT PETTIT [address] [place], [place] [id number] Business (1) In 3 days 07/12/2024 Comments: [...] worsening symptoms. DIAGNOSIS: Malaise; Viral syndrome Normal [facility] ED Note-Physicianon 07-09-20 ED Note-Physician ED Note-Physician Basic Information Time Seen: Ambrose eCdeño DO 07/09/2024 13:18 Chief Complaint really shakey, light headed and I feel llike I'm gonna pass out . pt verbalized has been sick for 1 week and been to two different hospitals and diagnosised wiht low sodium and elevated WBC. pt had CT of abd and x-ray and went to [facility] History of Present Illness 44-year-old female to the emergency department with chief complaint of feeling unwell for the last week. She reports she has had malaise, fatigue, intermittently shaky, felt lightheaded earlier. She reports that she has been seen both at [facility] and some urgency department in [facility] emergency department this week for this complaint. [...] dry clinically. Previous labs and imaging from [facility] in [facility] reviewed. Aside from her mild [...] slight leukocytosis, down from previous labs at [facility] and [facility]. Otherwise unremarkable. Mild hyponatremia which appears in [...] AJIT PETTIT In 3 days 07/12/2024 EDT [address] [place] [address]- Business (1) Additional Instructions: Call the office [...] worsening symp (more content not included)... Normal [facility] Comment on above: Result Comment: Elec tronically Signed By: Ambrose Cedeño DO\.br\Date and Time Signed: 07/09/24 14:21 EDT ED Patient Summaryon 024 ED Patient Summary ED Patient Summary [address] [address] Patient Discharge Instructions Person Information Name: RACHEL MCGARRY Age: 44 Years Arrival Date: 07/09/2024 12:39:08 Discharge Diagnosis: Malaise; Viral syndrome Primary Care Physician: AJIT PETTIT CNP Provider Information Primary Provider: Ambrose Cedeño DO Advanced Barge Worker:None The exam and treatment you received in the Emergency Department were for an urgent problem and are not intended as complete care. It is important that you follow up with a doctor, nurse practitioner, or physician?s care team assistant for ongoing care. If your symptoms [...] With: Address: When: AJIT PETTIT [address] [place] [address] [employer] (1) In 3 days 07/12/2024 Comments: Call [...] opioids can be used to help relieve pojsmmyt-jc-wcwlyv pain and are often prescribed following a [...] place a (more content not included)... Normal [facility] ED Patient Summary ED Patient Summary [place] [id number] Patient Discharge Instructions Person Information Name: RACHEL MCGARRY Age: 44 Years Arrival Date: 07/09/2024 12:39:08 Discharge Diagnosis: Malaise; Viral syndrome Primary Care Physician: AJIT PETTIT CNP Provider Information Primary Provider: Ambrose Cedeño DO Advanced Barge Worker:None The exam and treatment you received in the Emergency Department were for an urgent problem and are not intended as complete care. It is important that you follow up with a doctor, nurse practitioner, or physician?s care team assistant for ongoing care. If your symptoms become worse or you do not improve as expected and you are unable to reach your usual health care provider, you should return to the Emergency Department. We are available 24 hours a day. RACHEL MCGARRY has been given the following list of patient education materials, prescriptions and follow-up instructions: Follow-up Instructions: With: Address: When: AJIT WILVER [address] [place] [address] [employer] ([employer] In 3 days 07/12/2024 Comments: Call the [...] opioids can be used to help relieve sbmvufyw-gl-ywpzly pain and are often prescribed following a [...] place a (more content not included)... Normal [facility] HEMATOLOGYOrdered By: SYSTEM SYSTEM on 07-09-2024 Basophils/100 [...] 07-09-2024 Albumin [Mass/Vol] 4.0 g/dL Normal 3.3-5.0 [facility] Comment on above: Performed By: #### 2 [id number] #### [facility] Laboratory [address] [place] [address] Albumin/Globulin (S) [Mass conc ratio] 1.3 Normal 1.1-2.2 [facility] Comment on above: Performed By: #### 2 [id number] #### [facility] [address] [place] [address] ALP [Catalytic activity/Vol] 65 Int._Unit/L Normal 21-98 [facility] Comment on above: Performed By: #### 2 [id number] #### [facility] [address] [place] [address] ALT No additional P-5'-P [Catalytic activity/Vol] 10 Int._Unit/L Normal 6-46 [facility] Comment on above: Performed By: #### 2 [id number] #### [facility] [address] [place] [address] AST [Catalytic activity/Vol] 11 Int._Unit/L Normal 5-43 [facility] Comment on above: Performed By: #### 2 [id number] #### [facility] [address] [place] [address] Bilirubin [Mass/Vol] 0.2 mg/dL Normal 0.0-1.1 [facility] Comment on above: Performed By: #### 2 [id number] #### [facility] [address] [place] [address] Bilirubin.direct [Mass/Vol] 0.0 mg/dL Normal 0.0-0.4 [facility] Comment on above: Performed By: #### 2 [id number] #### [facility] [address] [place] [address] Bilirubin.indirect [Mass or moles/Vol] 0.2 mg/dL Normal 0.1-0.9 [facility] Comment on above: Performed By: #### 2 [id number] #### [facility] [address] [place] [address] Globulin (S) [Mass/Vol] 3.2 g/dL Normal 1.4-4.0 [facility] Comment on above: Performed By: #### 2 [id number] #### [facility] [address] [place] [address] Protein [Mass/Vol] 7.2 g/dL Normal 6.0-7.8 [facility] Comment on above: Performed By: #### 2 [id number] #### [facility] [address] [place] [address] PT & PTTon 07-09-2024 aPTT Coag (PPP) [Time] 28.9 second(s) Normal 25.1-36.5 [facility] Comment on above: Result Comment: Para meter 15 days - 4 weeks 1 - 5 months 6 - 11 months 1 - 5 years 6 - 10 years 11 - 17 years PTT Mean: 35.4 (27.6-45.6) Mean: 33.5 (24.8-40.7) Mean: 32.4 (25.1-40.7) Mean: 31.6 (24.0-39.2) Mean: 31.6 (26.9-38.7) Mean: 31.0 (24.6-38.4) Pediatric Reference ranges were obtained from a study by kari Alonzo al. prepared from 1437 samples obtained at 7 different centers using the same coagulation reagent and instrumentation as [facility]. Currently there are no coagulation studies available worldwide for children to 14 days, and no normal ranges. Heparin therapeutic range (represented by Anti-Factor Xa activity of 0.2 - 0.4 U/mL) corresponds to PTT of 56.6 - 109.0 sec. Performed By: #### 1 [id number] #### [facility] [address] [place] [address] INR Coag (PPP) [Relative time] 0.85 {INR} Invalid Interpretation Code [facility] Comment on above: Result Comment: INR results are specifically intended to assess patients stabilized on long-term Anticoagulation therapy suggested INR?s ?Less Intensive Anticoagulation? 2.0 ? 3.0 Conventional Range 3.0 ? 4.5 Performed By: #### 1 [id number] #### [facility] [address] [place] [address] PT Coag (PPP) [Time] 9.5 second(s) Normal 9.4-12.5 [facility] Comment on above: Result Comment: 15 [...] the same coagulation reagent and instrumentation as [facility]. Currently there are no coagulation studies available worldwide for children to 14 days, and no normal ranges. Performed By: #### 1 [id number] #### [facility] [address] [place] [address] SEROLOGYOrdered By: Rosanna Phillips on 07-09-2024 Beta HCG ( test) Ql Negative (07/09/24 12:50 PM) Normal [facility] Man Sero Troponin 0 Hr.on 07-09-2024 Troponin HS 3.00 pg/mL Low 10.10-27.1 0 [facility] Comment on above: Result Comment: The 95% CI (Confidence Interval) PPV (Positive Predictive Value) for myocardial infarction in females is 38 pg/mL, in males 51 pg/mL. The results should be used in conjunction with clinical conditions of myocardial infarction. (Access High Sensitivity Troponin I Instructions For Use, Ntirety, May 2018) Performed By: #### 1 [id number] #### [facility] [address] [place] [address] Troponin 1 Hr.on 07-09-2024 Troponin HS 3.60 pg/mL Low 10.10-27.1 0 [facility] Comment on above: Result Comment: The 95% CI (Confidence Interval) PPV (Positive Predictive Value) for myocardial infarction in females is 38 pg/mL, in males 51 pg/mL. The results should be used in conjunction with clinical conditions of myocardial infarction. (Access High Sensitivity Troponin I Instructions For Use, Nt[employer], May 2018) Performed By: #### 1 [id number] #### [facility] [address] [place] [address] XR Chest Single Viewon 07-09 XR Chest [...] mGy = na DAP = na Normal [facility] eGFRon 07-09-2024 eGFR 117 mL/min/1.73 m2 Normal >=59 [facility] Comment on above: Performed By: #### 1 [id number] #### [facility] [address] [place] [address] Alanine aminotransferase [En zymatic activity/volume] in Serum or PlasmaOrdered By: Jono Ferrari on 07-06-2024 ALT [Catalytic activity/Vol] 9 U/L Normal 7-52 [facility] Comment on above: Performed By: #### C BC, CMP, LIPASE ####[facility] [address] [place] [address] [facility] Albumin [Mass/volume] in Ser um or Plasma by Bromocresol green (BCG) dye binding methoOrdered By: Jono Ferrari on 07-06-2024 Albumin BCG dye [Mass/Vol] 4.2 g/dL 3.5-5.7 [facility] Alkaline phosphatase [Enzyma tic activity/volume] in Serum or PlasmaOrdered By: Jono Ferrari on 07-06-2024 ALP [Catalytic activity/Vol] 59 U/L Normal 34-104 [facility] Comment on above: Performed By: #### C BC, CMP, LIPASE ####[address] Aspartate aminotransferase [ Enzymatic activity/volume] in Serum or PlasmaOrdered By: Jono Ferrrai on 07-06-2024 AST [Catalytic activity/Vol] 10 U/L Low 13-39 [facility] Comment on above: Performed By: #### C BC, CMP, LIPASE ####[address] Automated basophil %Ordered By: Jono Ferrari on 07-06-2024 Basophils/100 WBC (Bld) 1.1 % Normal . [facility] Comment on above: Performed By: #### C BC, CMP, LIPASE ####[address] Automated basophil countOrde red By: Jono Ferrari on 07-06-2024 Basophils (Bld) [#/Vol] 0.3 10*3/uL High 0.0-0.2 [facility] Comment on above: Result Comment: PERF ORMED BY: [facility] [address] [place] [address] PATHOLOGIST SHEEP SORTER RIDGE HUERTA M.D. Performed By: #### C BC, CMP, LIPASE ####[address] Automated blood monocyte cou ntOrdered By: Jono Ferrari on 07-06-2024 Monocytes (Bld) [#/Vol] 1.6 10*3/uL High 0.0-0.8 [facility] Comment on above: Performed By: #### C BC, CMP, LIPASE ####[address] Automated eosinophil %Ordere d By: Jono Ferrari on 07-06-2024 Eosinophils/100 WBC (Bld) 0.6 % Normal . [facility] Comment on above: Performed By: #### C BC, CMP, LIPASE ####[place] [id number] [facility] Automated eosinophil countOr dered By: Jono Ferrari on 07-06-2024 Eosinophils (Bld) [#/Vol] 0.1 10*3/uL Normal 0.0-0.45 [facility] Comment on above: Performed By: #### C BC, CMP, LIPASE ####[facility] Automated monocyte %Ordered By: Jono Ferrari on 07-06-2024 Monocytes/100 WBC (Bld) 6.9 % Normal . [facility] Comment on above: Performed By: #### C BC, CMP, LIPASE ####[place] [id number] [address] Automated neutrophil %Ordere d By: Jono Ferrari on 07-06-2024 Neutrophils/100 WBC (Bld) 66.1 % Normal . [facility] Comment on above: Performed By: #### C BC, CMP, LIPASE ####[place] [id number] [address] Bilirubin.total [Mass/volume ] in Serum or PlasmaOrdered By: Jono Ferrari on 07-06-2024 Bilirubin [Mass/Vol] 0.3 mg/dL Normal 0.3-1.0 [facility] Comment on above: Performed By: #### C BC, CMP, LIPASE ####[address] abdomen pelvis w conon CT abdomen pelvis w con [facility] [address] [place] [address] [place] [address] CT Scan Report Signed Patient: Rachel Mcgarry MR#: [id number] 1 : 1980 Acct:[id number] Age/Sex: 44 / F ADM Date: 07/06/24 [...] Praveen Welch M.D.07/06/2024 7:13 PM Dictation Location: [place] [address] Transcribed By: [facility] 07/06/241912 Dictated By: Praveen Welch DO 07/06/241910 Signed By: 07/06/241912 Normal [facility] Calcium [Mass/volume] in Ser um or PlasmaOrdered By: Jono Ferrari on 07-06-2024 Calcium [Mass/Vol] 9.2 mg/dL Normal 8.6-10.3 [facility] Comment on above: Performed By: #### C BC, CMP, LIPASE ####[facility] [address] [place] [id number] [facility] Carbon dioxide, total [Moles /volume] in Serum or PlasmaOrdered By: Jono Ferrari on 07-06-2024 CO2 [Moles/Vol] 25.2 mmol/L Normal 21.0-31.0 [facility] Comment on above: Performed By: #### C BC, CMP, LIPASE ####[facility] [id number] [place] [id number] [facility] Chloride [Moles/volume] in S alissa or PlasmaOrdered By: Jono Ferrari on 07-06-2024 Chloride [Moles/Vol] 97 mmol/L Low 98-107 [facility] Comment on above: Performed By: #### C BC, CMP, LIPASE ####[address] Complete Blood Count Auto Di ffon 07-06-2024 Mean Corpuscular HGB Conc 34.5 g/dL Normal 32.0-35.0 [facility] Comment on above: Performed By: #### C BC, CMP, LIPASE ####[address] Monocytes/100 WBC (Bld) 18.69 % Normal 0.00-20.00 [facility] Comment on above: Performed By: #### C BC, CMP, LIPASE ####[address] NRBC% 0.0 /100{WBC} Normal 0-0.5 [facility] Comment on above: Performed By: #### C BC, CMP, LIPASE ####[address] Comprehensive Metabolic Pane rosa 07-06-2024 Albumin [Mass/Vol] 4.2 g/dL Normal 3.5-5.7 [facility] Comment on above: Performed By: #### C BC, CMP, LIPASE ####[address] Creatinine Clr Calc Pharmacy 108.35 Normal [facility] Comment on above: Result Comment: PERF ORMED BY: [facility] [address] [place] [address] PATHOLOGIST SHEEP SORTER RIDGE HUERTA M.D. Performed By: #### C BC, CMP, LIPASE ####[address] GFR/1.73 sq M.predicted MDRD (S/P/Bld) [Vol rate/Area] mL/min/{1.73_m2} Normal [facility] Comment on above: Performed By: #### C BC, CMP, LIPASE ####[address] Creatinine [Mass/volume] in Serum or PlasmaOrdered By: oJno Ferrari on 07-06-2024 Creatinine [Mass/Vol] 0.59 mg/dL Low 0.60-1.20 [facility] Comment on above: Performed By: #### C BC, CMP, LIPASE ####[facility] [id number] [place] [id number] [facility] ECG 12 lead ECGon 07-06-2024 ECG 12 lead ECG [facility] [address] [place] [address] [place] [address] Electrocardiograph Report Signed Patient: Rachel Mcgarry MR#: [id number] 1 : 1980 Acct:[id number] Age/Sex: 44 / F ADM Date: 07/06/24 [...] By: MUS Signed By Edna Munoz MD 07/06/24 193 Normal [facility] Erythrocyte distribution wid th [Ratio] by Automated countOrdered By: Jono Ferrari on 07-06-2024 Erythrocyte distribution width (RBC) [Ratio] 13.2 % Normal 11.9-15.3 [facility] Comment on above: Performed By: #### C BC, CMP, LIPASE ####[facility] [id number] [place] [id number] [facility] Erythrocytes [#/volume] in B lood by Automated countOrdered By: Jono Ferrari on 07-06-2024 RBC (Bld) [#/Vol] 4.93 10*6/uL Normal 3.60-5.00 [facility] Comment on above: Performed By: #### C BC, CMP, LIPASE ####[address] Glucose [Mass/volume] in Ser um or PlasmaOrdered By: Jono Ferrari on 07-06-2024 Glucose [Mass/Vol] 142 mg/dL High 70-100 [facility] Comment on above: ADA recommended refe rence rangeRandom Glucose Reference Range is dependent on time and content of last meal. Glucose of more than 200 mg/dL in a nonstressed, ambulatory subject supports the diagnosis of Diabetes Mellitus. Result Comment: [place] om Glucose Reference Range is dependent on time and content of last meal. Glucose of more than 200 mg/dL in a nonstressed, ambulatory subject supports the diagnosis of Diabetes Mellitus. ADA recommended reference range Performed By: #### C BC, CMP, LIPASE ####[address] Hematocrit [Volume Fraction] of Blood by Automated countOrdered By: Jono Ferrari on 07-06-2024 Hematocrit (Bld) [Volume fraction] 43.5 % Normal 34.0-46.4 [facility] Comment on above: Performed By: #### C BC, CMP, LIPASE ####[address] Hemoglobin [Mass/volume] in BloodOrdered By: Jono Ferrari on 07-06-2024 Hemoglobin (Bld) [Mass/Vol] 15.0 g/dL Normal 11.8-15.4 [facility] Comment on above: Performed By: #### C BC, CMP, LIPASE ####[place] [id number] [facility] Leukocytes [#/volume] correc cherie for nucleated erythrocytes in Blood by Automated counOrdered By: Jono Ferrari on 07-06-2024 WBC corrected for nucl RBC Auto (Bld) [#/Vol] 22.9 10*3/uL High 3.8-11.6 [facility] Leukocytes [#/volume] in Blo od by Automated countOrdered By: Jono Ferrari on 07-06-2024 WBC (Bld) [#/Vol] 22.9 10*3/uL High 3.8-11.6 [facility] Comment on above: Performed By: #### C BC, CMP, LIPASE ####[address] Lipase [Enzymatic activity/v olume] in Serum or PlasmaOrdered By: Jono Ferrari on 07-06-2024 Lipase [Catalytic activity/Vol] 48.0 U/L Normal 11.0-82.0 [facility] Comment on above: Result Comment: PERF ORMED BY: [facility] [address] [place] [address] PATHOLOGIST SHEEP SORTER RIDGE HUERTA M.D. Performed By: #### C BC, CMP, LIPASE ####[address] Lymphocytes [#/volume] in Bl ood by Automated countOrdered By: Jono Ferrari on 07-06-2024 Lymphocytes (Bld) [#/Vol] 5.8 10*3/uL High 1.00-4.8 [facility] Comment on above: Performed By: #### C BC, CMP, LIPASE ####[address] Lymphocytes/100 leukocytes i n Blood by Automated countOrdered By: Jono Ferrari on 07-06-2024 Lymphocytes/100 WBC (Bld) 25.3 % Normal . [facility] Comment on above: Performed By: #### C BC, CMP, LIPASE ####[place] [id number] [facility] MCH [Entitic mass] by Automa cherie countOrdered By: Jono Ferrari on 07-06-2024 MCH (RBC) [Entitic mass] 30.5 pg Normal 24.7-34.3 [facility] Comment on above: Performed By: #### C BC, CMP, LIPASE ####[address] MCHC Auto (RBC) [Mass/Vol]Or dered By: Jono Ferrari on 07-06-2024 MCHC (RBC) [Mass/Vol] 34.5 g/dL 32.0-35.0 [facility] MCV [Entitic volume] by Auto mated countOrdered By: Jono Ferrari on 07-06-2024 MCV (RBC) [Entitic vol] 88.3 fL Normal 80-100 [facility] Comment on above: Performed By: #### C BC, CMP, LIPASE ####[facility] [id number] Monocyte distribution width [Entitic volume] in Blood by AutomatedOrdered By: Jono Ferrari on 07-06-2024 Monocyte distribution width Auto (Bld) [Entitic vol] 18.69 % 0.00-20.00 [facility] Neutrophils [#/volume] in Bl ood by Automated countOrdered By: Jono Ferrari on 07-06-2024 Neutrophils (Bld) [#/Vol] 15.1 10*3/uL High 1.8-7.7 [facility] Comment on above: Performed By: #### C BC, CMP, LIPASE ####[address] No Panel InformationOrdered By: Jono Ferrari on 07-06-2024 Estimated GFR (CKD-EPI) > 60.0 mL/Min [facility] Pharmacy Creatinine Clearance (Chem 108.35 [facility] Nucleated erythrocytes [Pres ence] in Blood by Automated countOrdered By: Jono Ferrari on 07-06-2024 Nucleated RBC Auto Ql (Bld) 0.0 /100{WBC} 0-0.5 [facility] Platelet mean volume [Entiti c volume] in Blood by Automated countOrdered By: Jono Ferrari on 07-06-2024 Platelet mean volume (Bld) [Entitic vol] 7.2 fL Normal 6.3-10.7 [facility] Comment on above: Performed By: #### C BC, CMP, LIPASE ####[place] [id number] [address] Platelets [#/volume] in Bloo d by Automated countOrdered By: Jono Ferrari on 07-06-2024 Platelets (Bld) [#/Vol] 387 10*3/uL Normal 150-450 [facility] Comment on above: Performed By: #### C BC, CMP, LIPASE ####[facility] Potassium [Moles/volume] in Serum or PlasmaOrdered By: Jono Ferrari on 07-06-2024 Potassium [Moles/Vol] 3.9 mmol/L Normal 3.5-5.1 [facility] Comment on above: Performed By: #### C BC, CMP, LIPASE ####[place] [id number] [address] Protein [Mass/volume] in Ser um or PlasmaOrdered By: Jono Ferrari on 07-06-2024 Protein [Mass/Vol] 7.2 g/dL Normal 6.4-8.9 [facility] Comment on above: Performed By: #### C BC, CMP, LIPASE ####[place] [id number] [address] Serum globulin measurement b y calculation (mass/volume)Ordered By: Jono Ferrari on 07-06-2024 Globulin (S) [Mass/Vol] 3.0 g/dL Normal [facility] Comment on above: Performed By: #### C BC, CMP, LIPASE ####[address] Serum or plasma albumin/glob ulin mass ratioOrdered By: Jono Ferrari on 07-06-2024 Albumin/Globulin [Mass ratio] 1.4 {ratio} Normal [facility] Comment on above: Performed By: #### C BC, CMP, LIPASE ####[place] [id number] [place] [id number] [facility] Serum or plasma anion gap de terminationOrdered By: Jono Ferrari on 07-06-2024 Anion gap [Moles/Vol] 13.7 mmol/L Normal 6.0-15.0 [facility] Comment on above: Performed By: #### C BC, CMP, LIPASE ####[facility] [place] [id number] [facility] Sodium [Moles/volume] in Ser um or PlasmaOrdered By: Jono Ferrari on 07-06-2024 Sodium [Moles/Vol] 132 mmol/L Low 136-145 [facility] Comment on above: Performed By: #### C BC, CMP, LIPASE ####[facility] [id number] [place] [id number] [facility] Urea nitrogen [Mass/volume] in Serum or PlasmaOrdered By: Jono Ferrari on 07-06-2024 Urea nitrogen [Mass/Vol] 8 mg/dL Normal 7-25 [facility] Comment on above: Performed By: #### C BC, CMP, LIPASE ####[facility] XR chest 2V*on 07-06-2024 XR chest 2V* [facility] [place] [address] [place] [address] XRay Report Signed Patient: Rachel Mcgarry MR#: [id number] 1 : 1980 Acct:[id number] Age/Sex: 44 / F ADM Date: 07/06/24 Loc: ER Room: Type: PRE ER Attending Dr: Copies to: Jono Ferrari PA-C Ordering Provider: Jono Ferrari PA-C Date of Service: 07/06/24 XR/XR chest 2V*: Recheck/Abnormal Lab/Rx Plain film chest 2 view HISTORY: Leukocytosis COMPARISON: 10/07/23 FINDINGS: SUPPORT DEVICES: None POSTSURGICAL CHANGES: None HEART: Within normal limits PULMONARY MATT: Within normal limits MEDIASTINUM: Unremarkable LUNGS AND PLEURA: No acute lung process, pleural effusion or pneumothorax identified. BONY STRUCTURES: Intact ADDITIONAL FINDINGS None XR/XR chest 2V* IMPRESSION: No acute process. Impression dictated by: Praveen Welch M.D.07/06/2024 8:10 PM Dictation Location: [place] [address] Transcribed By: [facility] 07/06/242009 Dictated By: Praveen Welch DO 07/06/242008 Signed By: 07/06/242009 [facility] Alanine aminotransferase [En zymatic activity/volume] in Serum or PlasmaOrdered By: Ajit Pettit on 07-04-2024 ALT [Catalytic activity/Vol] 7 U/L Normal 7-52 [facility] Comment on above: Performed By: #### A DDONUAPLUS #### [address] Albumin [Mass/volume] in Ser um or Plasma by Bromocresol green (BCG) dye binding methoOrdered By: Ajit Pettit on 07-04-2024 Albumin BCG dye [Mass/Vol] 3.8 g/dL 3.5-5.7 [facility] Alkaline phosphatase [Enzyma tic activity/volume] in Serum or PlasmaOrdered By: Ajit Pettit on 07-04-2024 ALP [Catalytic activity/Vol] 54 U/L Normal 34-104 [facility] Comment on above: Performed By: #### A DDONUAPLUS #### [address] Aspartate aminotransferase [ Enzymatic activity/volume] in Serum or PlasmaOrdered By: Ajit Pettit on 07-04-2024 AST [Catalytic activity/Vol] 8 U/L Low 13-39 [facility] Comment on above: Performed By: #### A DDONUAPLUS #### [address] Automated basophil %Ordered By: Ajit Pettit on 07-04-2024 Basophils/100 WBC (Bld) 0.6 % Normal . [facility] Comment on above: Performed By: #### A DDONUAPLUS #### [address] Automated basophil countOrde red By: Ajit Pettit on 07-04-2024 Basophils (Bld) [#/Vol] 0.1 10*3/uL Normal 0.0-0.2 [facility] Comment on above: Result Comment: PERF ORMED BY: [place] [address] PATHOLOGIST SHEEP SORTER RIDGE HUERTA M.D. Performed By: #### A DDONUAPLUS #### [address] Automated blood monocyte cou ntOrdered By: Ajit Pettit on 07-04-2024 Monocytes (Bld) [#/Vol] 1.5 10*3/uL High 0.0-0.8 [facility] Comment on above: Performed By: #### A DDONUAPLUS #### [address] Automated eosinophil %Ordere d By: Ajit Spasic on 07-04-2024 Eosinophils/100 WBC (Bld) 0.5 % Normal . [facility] Comment on above: Performed By: #### A DDONUAPLUS #### [address] Automated eosinophil countOr dered By: Ajit Millanc on 07-04-2024 Eosinophils (Bld) [#/Vol] 0.1 10*3/uL Normal 0.0-0.45 [facility] Comment on above: Performed By: #### A DDONUAPLUS #### [address] Automated monocyte %Ordered By: Ajit Millanc on 07-04-2024 Monocytes/100 WBC (Bld) 7.9 % Normal . [facility] Comment on above: Performed By: #### A DDONUAPLUS #### [address] Automated neutrophil %Ordere d By: Ajit Spasic on 07-04-2024 Neutrophils/100 WBC (Bld) 66.4 % Normal . [facility] Comment on above: Performed By: #### A DDONUAPLUS #### [address] Bilirubin.total [Mass/volume ] in Serum or PlasmaOrdered By: Ajit Millanc on 07-04-2024 Bilirubin [Mass/Vol] 0.3 mg/dL Normal 0.3-1.0 [facility] Comment on above: Performed By: #### A DDONUAPLUS #### [facility] [address] [place] [address] [place] Calcium [Mass/volume] in Ser um or PlasmaOrdered By: Ajit Pettit on 07-04-2024 Calcium [Mass/Vol] 8.9 mg/dL Normal 8.6-10.3 [facility] Comment on above: Performed By: #### A DDONUAPLUS #### [facility] [address] [place] [address] [place] Carbon dioxide, total [Moles /volume] in Serum or PlasmaOrdered By: Ajit Pettit on 07-04-2024 CO2 [Moles/Vol] 29.2 mmol/L Normal 21.0-31.0 [facility] Comment on above: Performed By: #### A DDONUAPLUS #### [facility] [address] [place] [address] [place] Chloride [Moles/volume] in S alissa or PlasmaOrdered By: Ajit Pettit on 07-04-2024 Chloride [Moles/Vol] 92 mmol/L Low 98-107 [facility] Comment on above: Performed By: #### A DDONUAPLUS #### [facility] [address] [place] [address] [place] Cholesterol [Mass/volume] in Serum or PlasmaOrdered By: Ajit Pettit on 07-04-2024 Cholesterol [Mass/Vol] 185 mg/dL Normal 140-200 [facility] Comment on above: Chol less than 200 m g/dl low riskChol 201-239 mg/dl borderline riskChol 240 mg/dl and greater high risk Result Comment: Chol less than 200 mg/dl low risk Chol 201-239 mg/dl borderline risk Chol 240 mg/dl and greater high risk Performed By: #### A DDONUAPLUS #### [place] [address] [place] Cholesterol in LDL Calc [Mas s/Vol]Ordered By: Ajit Pettit on 07-04-2024 Cholesterol in LDL [Mass/Vol] 58 mg/dL 0-100 [facility] Comment on above: LDL ATP III CLASSIFI CATIONLDL less than 100 mg/dL OptimalLDL 100-129 mg/dL Near or above optimalLDL 130-159 mg/dL Borderline highLDL 160-189 mg/dL HighLDL greater than 189 mg/dL Very high Cholesterol in VLDL Calc [Ma ss/Vol]Ordered By: Ajit Pettit on 07-04-2024 Cholesterol in VLDL [Mass/Vol] 78 mg/dL [facility] Complete Blood Count Auto Di ffon 07-04-2024 Mean Corpuscular HGB Conc 34.2 g/dL Normal 32.0-35.0 [facility] Comment on above: Performed By: #### A DDONUAPLUS #### [address] NRBC% 0.1 /100{WBC} Normal 0-0.5 [facility] Comment on above: Performed By: #### A DDONUAPLUS #### [address] Comprehensive Metabolic Pane rosa 07-04-2024 Albumin [Mass/Vol] 3.8 g/dL Normal 3.5-5.7 [facility] Comment on above: Performed By: #### A DDONUAPLUS #### [address] GFR/1.73 sq M.predicted MDRD (S/P/Bld) [Vol rate/Area] mL/min/{1.73_m2} Normal [facility] Comment on above: Performed By: #### A DDONUAPLUS #### [address] Creatinine [Mass/volume] in Serum or PlasmaOrdered By: Ajit Pettit on 07-04-2024 Creatinine [Mass/Vol] 0.61 mg/dL Normal 0.60-1.20 [facility] Comment on above: Performed By: #### A DDONUAPLUS #### [address] Erythrocyte distribution wid th [Ratio] by Automated countOrdered By: Ajit Pettit on 07-04-2024 Erythrocyte distribution width (RBC) [Ratio] 13.0 % Normal 11.9-15.3 [facility] Comment on above: Performed By: #### A DDONUAPLUS #### [address] Erythrocytes [#/volume] in B lood by Automated countOrdered By: Ajit Pettit on 07-04-2024 RBC (Bld) [#/Vol] 4.55 10*6/uL Normal 3.60-5.00 [facility] Comment on above: Performed By: #### A DDONUAPLUS #### [address] Glucose [Mass/volume] in Ser um or PlasmaOrdered By: Ajit Pettit on 07-04-2024 Glucose [Mass/Vol] 164 mg/dL High 70-100 [facility] Comment on above: ADA recommended refe rence rangeRandom Glucose Reference Range is dependent on time and content of last meal. Glucose of more than 200 mg/dL in a nonstressed, ambulatory subject supports the diagnosis of Diabetes Mellitus. Result Comment: [place] om Glucose Reference Range is dependent on time and content of last meal. Glucose of more than 200 mg/dL in a nonstressed, ambulatory subject supports the diagnosis of Diabetes Mellitus. ADA recommended reference range Performed By: #### A DDONUAPLUS #### [address] Hematocrit [Volume Fraction] of Blood by Automated countOrdered By: Ajit Pettit on 07-04-2024 Hematocrit (Bld) [Volume fraction] 40.0 % Normal 34.0-46.4 [facility] Comment on above: Performed By: #### A DDONUAPLUS #### [place] [address] [place] Hemoglobin [Mass/volume] in BloodOrdered By: Ajit Pettit on 07-04-2024 Hemoglobin (Bld) [Mass/Vol] 13.7 g/dL Normal 11.8-15.4 [facility] Comment on above: Performed By: #### A DDONUAPLUS #### [address] Leukocytes [#/volume] correc cherie for nucleated erythrocytes in Blood by Automated counOrdered By: Ajit Pettit on 07-04-2024 WBC corrected for nucl RBC Auto (Bld) [#/Vol] 19.3 10*3/uL High 3.8-11.6 [facility] Leukocytes [#/volume] in Blo od by Automated countOrdered By: Ajit Pettit on 07-04-2024 WBC (Bld) [#/Vol] 19.3 10*3/uL High 3.8-11.6 [facility] Comment on above: Performed By: #### A DDONUAPLUS #### [address] Lipid Panelon 07-04-2024 LDL Cholesterol,Calculated 58 mg/dL Normal 0-100 [facility] Comment on above: Result Comment: LDL ATP III CLASSIFICATION LDL less than 100 mg/dL Optimal LDL 100-129 mg/dL Near or above optimal LDL 130-159 mg/dL Borderline high LDL 160-189 mg/dL High LDL greater than 189 mg/dL Very high Performed By: #### A DDONUAPLUS #### [address] Triglyceride w/Reflex 393 mg/dL High 0-149 [facility] Comment on above: Result Comment: TRIG ATP III CLASSIFICATION TRIG less than 150 mg/dL Normal TRIG 150-199 mg/dL Borderline high TRIG 200-500 mg/dL High TRIG greater than 500 mg/dL Very high Standard traceable to the Center for Disease Conrtrol and Prevention (CDC) test method. Performed By: #### A DDONUAPLUS #### [address] VLDL CHOLESTEROL 78 mg/dL Normal [facility] Comment on above: Performed By: #### A DDONUAPLUS #### [place] [address] [place] Lymphocytes [#/volume] in Bl ood by Automated countOrdered By: Ajit Pettit on 07-04-2024 Lymphocytes (Bld) [#/Vol] 4.7 10*3/uL Normal 1.00-4.8 [facility] Comment on above: Performed By: #### A DDONUAPLUS #### [address] Lymphocytes/100 leukocytes i n Blood by Automated countOrdered By: Ajit Pettit on 07-04-2024 Lymphocytes/100 WBC (Bld) 24.6 % Normal . [facility] Comment on above: Performed By: #### A DDONUAPLUS #### [address] MCH [Entitic mass] by Automa cherie countOrdered By: Ajit Pettit on 07-04-2024 MCH (RBC) [Entitic mass] 30.0 pg Normal 24.7-34.3 [facility] Comment on above: Performed By: #### A DDONUAPLUS #### [address] MCHC Auto (RBC) [Mass/Vol]Or dered By: Ajit Pettit on 07-04-2024 MCHC (RBC) [Mass/Vol] 34.2 g/dL 32.0-35.0 [facility] MCV [Entitic volume] by Auto mated countOrdered By: Ajit Pettit on 07-04-2024 MCV (RBC) [Entitic vol] 87.9 fL Normal 80-100 [facility] Comment on above: Performed By: #### A DDONUAPLUS #### [address] Neutrophils [#/volume] in Bl ood by Automated countOrdered By: Ajit Pettit on 07-04-2024 Neutrophils (Bld) [#/Vol] 12.8 10*3/uL High 1.8-7.7 [facility] Comment on above: Performed By: #### A DDONUAPLUS #### [address] No Panel InformationOrdered By: Ajit Pettit on 07-04-2024 Estimated GFR (CKD-EPI) > 60.0 mL/Min [facility] Creatinine Clearance (Chem N/A [facility] Nucleated erythrocytes [Pres ence] in Blood by Automated countOrdered By: Ajit Pettit on 07-04-2024 Nucleated RBC Auto Ql (Bld) 0.1 /100{WBC} 0-0.5 [facility] Platelet mean volume [Entiti c volume] in Blood by Automated countOrdered By: Ajit Pettit on 07-04-2024 Platelet mean volume (Bld) [Entitic vol] 7.0 fL Normal 6.3-10.7 [facility] Comment on above: Performed By: #### A DDONUAPLUS #### [facility] [address] [place] [address] [place] Platelets [#/volume] in Bloo d by Automated countOrdered By: Ajit Pettit on 07-04-2024 Platelets (Bld) [#/Vol] 350 10*3/uL Normal 150-450 [facility] Comment on above: Performed By: #### A DDONUAPLUS #### [facility] [address] [place] [address] [place] Potassium [Moles/volume] in Serum or PlasmaOrdered By: Ajit Pettit on 07-04-2024 Potassium [Moles/Vol] 4.6 mmol/L Normal 3.5-5.1 [facility] Comment on above: Performed By: #### A DDONUAPLUS #### [facility] [address] [place] [address] [place] Protein [Mass/volume] in Ser um or PlasmaOrdered By: Ajit Pettit on 07-04-2024 Protein [Mass/Vol] 5.9 g/dL Low 6.4-8.9 [facility] Comment on above: Performed By: #### A DDONUAPLUS #### [facility] [address] [place] [address] [place] Serum globulin measurement b y calculation (mass/volume)Ordered By: Ajit Pettit on 07-04-2024 Globulin (S) [Mass/Vol] 2.1 g/dL Normal [facility] Comment on above: Performed By: #### A DDONUAPLUS #### [facility] [address] [place] [address] Serum or plasma albumin/glob ulin mass ratioOrdered By: Ajit Pettit on 07-04-2024 Albumin/Globulin [Mass ratio] 1.8 {ratio} Normal [facility] Comment on above: Performed By: #### A DDONUAPLUS #### [address] Serum or plasma anion gap de terminationOrdered By: Ajit Pettit on 07-04-2024 Anion gap [Moles/Vol] 13.4 mmol/L Normal 6.0-15.0 [facility] Comment on above: Performed By: #### A DDONUAPLUS #### [address] Serum or plasma high density lipoprotein (HDL) cholesterol measurementOrdered By: Ajit Pettit on 07-04-2024 Cholesterol in HDL [Mass/Vol] 48 mg/dL Normal 23-92 [facility] Comment on above: HDL CHOL ATP-III CLA SSIFICATION Cardiovascular RiskHDL > or equal to 60 mg/dL LOWHDL < 40 mg/dL HIGH Result Comment: HDL CHOL ATP-III CLASSIFICATION Cardiovascular Risk HDL > or equal to 60 mg/dL LOW HDL < 40 mg/dL HIGH Performed By: #### A DDONUAPLUS #### [address] Serum or plasma total choles terol/high density lipoprotein (HDL) cholesterol mass ratOrdered By: Ajit Pettit on 07-04-2024 Cholesterol.total/Suellen sterol in HDL [Mass ratio] 3.9 {ratio} Normal <5.0 [facility] Comment on above: Result Comment: PERF ORMED BY: [place] [address] PATHOLOGIST SHEEP SORTER RIDGE HUERTA M.D. Performed By: #### A DDONUAPLUS #### [address] Sodium [Moles/volume] in Ser um or PlasmaOrdered By: Ajit Pettit on 07-04-2024 Sodium [Moles/Vol] 130 mmol/L Low 136-145 [facility] Comment on above: Performed By: #### A DDONUAPLUS #### [facility] [address] [place] [address] Triglyceride [Mass/volume] i n Serum or PlasmaOrdered By: Ajit Pettit on 07-04-2024 Triglyceride [Mass/Vol] 393 mg/dL High 0-149 [facility] Comment on above: TRIG ATP III CLASSIF ICATIONTRIG less than 150 mg/dL NormalTRIG 150-199 mg/dL Borderline highTRIG 200-500 mg/dL High TRIG greater than 500 mg/dL Very highStandard traceable to the Center for Disease Conrtrol and Prevention (CDC) test method. Urea nitrogen [Mass/volume] in Serum or PlasmaOrdered By: Ajit Pettit on 07-04-2024 Urea nitrogen [Mass/Vol] 6 mg/dL Low 7-25 [facility] Comment on above: Performed By: #### A DDONUAPLUS #### [address] MR lumbar spine wo conon MR lumbar spine wo con [facility] [place] [address] MRI Report Signed Patient: Rachel Mcgarry MR#: [id number] 1 : 1980 Acct:[id number] Age/Sex: 44 / F ADM Date: 06/08/24 Loc: [facility] Room: [facility] Attending Dr: Ajit DEJESUS Copies to: [...] Dar Messina M.D.06/08/2024 4:52 PM Dictation Location: [place] [address] Transcribed By: [facility] 06/08/24 1652 Dictated By: Dar Messina II, MD 06/08/24 1643 Signed By: 06/08/24 1652 Normal [facility] A1C with Estimated Average G lethan 05-16-2024 Glucose [Mass/Vol] 137 mg/dL Normal [facility] Comment on above: Order Comment: Name Collection Type:: Martinez Catheter Result Comment: PERF ORMED BY: [place] [address] PATHOLOGIST SHEEP SORTER RIDGE HUERTA M.D. Performed By: #### A DDONUAPLUS #### [place] [address] [place] Alanine aminotransferase [En zymatic activity/volume] in Serum or PlasmaOrdered By: Ajit Pettit on 05-16-2024 ALT [Catalytic activity/Vol] 11 U/L Normal 7-52 [facility] Comment on above: Order Comment: Name Collection Type:: Martinez Catheter Performed By: #### A DDONUAPLUS #### [place] [address] [place] Albumin [Mass/volume] in Ser um or Plasma by Bromocresol green (BCG) dye binding methoOrdered By: Ajit Pettit on 05-16-2024 Albumin BCG dye [Mass/Vol] 4.2 g/dL 3.5-5.7 [facility] Alkaline phosphatase [Enzyma tic activity/volume] in Serum or PlasmaOrdered By: Ajit Pettit on 05-16-2024 ALP [Catalytic activity/Vol] 62 U/L Normal 34-104 [facility] Comment on above: Order Comment: Name Collection Type:: Martinez Catheter Performed By: #### A DDONUAPLUS #### [place] [address] [place] Aspartate aminotransferase [ Enzymatic activity/volume] in Serum or PlasmaOrdered By: Ajit Pettit on 05-16-2024 AST [Catalytic activity/Vol] 11 U/L Low 13-39 [facility] Comment on above: Order Comment: Name Collection Type:: Martinez Catheter Performed By: #### A DDONUAPLUS #### [place] [address] [place] Automated basophil %Ordered By: Ajit Pettit on 05-16-2024 Basophils/100 WBC (Bld) 0.6 % Normal . [facility] Comment on above: Order Comment: Name Collection Type:: Martinez Catheter Performed By: #### A DDONUAPLUS #### [address] Automated basophil countOrde red By: Ajit Pettit on 05-16-2024 Basophils (Bld) [#/Vol] 0.1 10*3/uL Normal 0.0-0.2 [facility] Comment on above: Order Comment: Name Collection Type:: Martinez Catheter Result Comment: PERF ORMED BY: [place] [address] PATHOLOGIST SHEEP SORTER RIDGE HUERTA M.D. Performed By: #### A DDONUAPLUS #### [address] Automated blood monocyte cou ntOrdered By: Ajit Pettit on 05-16-2024 Monocytes (Bld) [#/Vol] 0.7 10*3/uL Normal 0.0-0.8 [facility] Comment on above: Order Comment: Name Collection Type:: Martinez Catheter Performed By: #### A DDONUAPLUS #### [address] Automated eosinophil %Ordere d By: Ajit Pettit on 05-16-2024 Eosinophils/100 WBC (Bld) 0.4 % Normal . [facility] Comment on above: Order Comment: Name Collection Type:: Martinez Catheter Performed By: #### A DDONUAPLUS #### [address] Automated eosinophil countOr dered By: Ajit Pettit on 05-16-2024 Eosinophils (Bld) [#/Vol] 0.1 10*3/uL Normal 0.0-0.45 [facility] Comment on above: Order Comment: Name Collection Type:: Martinez Catheter Performed By: #### A DDONUAPLUS #### [address] Automated monocyte %Ordered By: Ajit Lariossic on 05-16-2024 Monocytes/100 WBC (Bld) 4.4 % Normal . [facility] Comment on above: Order Comment: Name Collection Type:: Martinez Catheter Performed By: #### A DDONUAPLUS #### [facility] [address] [place] [address] [place] Automated neutrophil %Ordere d By: Ajit Spasic on 05-16-2024 Neutrophils/100 WBC (Bld) 61.6 % Normal . [facility] Comment on above: Order Comment: Name Collection Type:: Martinez Catheter Performed By: #### A DDONUAPLUS #### [place] [address] [place] Bilirubin.total [Mass/volume ] in Serum or PlasmaOrdered By: Ajit Spasic on 05-16-2024 Bilirubin [Mass/Vol] 0.3 mg/dL Normal 0.3-1.0 [facility] Comment on above: Order Comment: Name Collection Type:: Martinez Catheter Performed By: #### A DDONUAPLUS #### [place] [address] [place] Calcium [Mass/volume] in Ser um or PlasmaOrdered By: Ajit Spasic on 05-16-2024 Calcium [Mass/Vol] 9.0 mg/dL Normal 8.6-10.3 [facility] Comment on above: Order Comment: Name Collection Type:: Martinez Catheter Performed By: #### A DDONUAPLUS #### [facility] [address] [place] [address] [place] Carbon dioxide, total [Moles /volume] in Serum or PlasmaOrdered By: Ajit Spasic on 05-16-2024 CO2 [Moles/Vol] 26.0 mmol/L Normal 21.0-31.0 [facility] Comment on above: Order Comment: Name Collection Type:: Martinez Catheter Performed By: #### A DDONUAPLUS #### [place] [address] [place] Chloride [Moles/volume] in S alissa or PlasmaOrdered By: Ajit Spasic on 05-16-2024 Chloride [Moles/Vol] 96 mmol/L Low 98-107 [facility] Comment on above: Order Comment: Name Collection Type:: Martinez Catheter Performed By: #### A DDONUAPLUS #### [facility] [address] Cholesterol [Mass/volume] in Serum or PlasmaOrdered By: Ajit Pettit on 05-16-2024 Cholesterol [Mass/Vol] 237 mg/dL High 140-200 [facility] Comment on above: Chol less than 200 m g/dl low riskChol 201-239 mg/dl borderline riskChol 240 mg/dl and greater high risk Order Comment: Name Collection Type:: Martinez Catheter Result Comment: Chol less than 200 mg/dl low risk Chol 201-239 mg/dl borderline risk Chol 240 mg/dl and greater high risk Performed By: #### A DDONUAPLUS #### [facility] [address] Cholesterol in LDL Calc [Mas s/Vol]Ordered By: jAit Pettit on 05-16-2024 Cholesterol in LDL [Mass/Vol] 130 mg/dL High 0-100 [facility] Comment on above: LDL ATP III CLASSIFI CATIONLDL less than 100 mg/dL OptimalLDL 100-129 mg/dL Near or above optimalLDL 130-159 mg/dL Borderline highLDL 160-189 mg/dL HighLDL greater than 189 mg/dL Very high Cholesterol in VLDL Calc [Ma ss/Vol]Ordered By: Ajit Pettit on 05-16-2024 Cholesterol in VLDL [Mass/Vol] 64 mg/dL [facility] Complete Blood Count Auto Di ffon 05-16-2024 Mean Corpuscular HGB Conc 34.3 g/dL Normal 32.0-35.0 [facility] Comment on above: Order Comment: Name Collection Type:: Martinez Catheter Performed By: #### A DDONUAPLUS #### [facility] [address] NRBC% 0.1 /100{WBC} Normal 0-0.5 [facility] Comment on above: Order Comment: Name Collection Type:: Martinez Catheter Performed By: #### A DDONUAPLUS #### [address] Comprehensive Metabolic Pane rosa 05-16-2024 Albumin [Mass/Vol] 4.2 g/dL Normal 3.5-5.7 [facility] Comment on above: Order Comment: Name Collection Type:: Martinez Catheter Performed By: #### A DDONUAPLUS #### [address] GFR/1.73 sq M.predicted MDRD (S/P/Bld) [Vol rate/Area] mL/min/{1.73_m2} Normal [facility] Comment on above: Order Comment: Name Collection Type:: Martinez Catheter Performed By: #### A DDONUAPLUS #### [address] Creatinine [Mass/volume] in Serum or PlasmaOrdered By: Ajit Pettit on 05-16-2024 Creatinine [Mass/Vol] 0.47 mg/dL Low 0.60-1.20 [facility] Comment on above: Order Comment: Name Collection Type:: Martinez Catheter Performed By: #### A DDONUAPLUS #### [address] Erythrocyte distribution wid th [Ratio] by Automated countOrdered By: Ajit Pettit on 05-16-2024 Erythrocyte distribution width (RBC) [Ratio] 13.3 % Normal 11.9-15.3 [facility] Comment on above: Order Comment: Name Collection Type:: Martinez Catheter Performed By: #### A DDONUAPLUS #### [place] [address] [place] Erythrocytes [#/volume] in B lood by Automated countOrdered By: Ajit Pettit on 05-16-2024 RBC (Bld) [#/Vol] 4.64 10*6/uL Normal 3.60-5.00 [facility] Comment on above: Order Comment: Name Collection Type:: Martinez Catheter Performed By: #### A DDONUAPLUS #### [address] [place] [address] [place] Glucose [Mass/volume] in Ser um or PlasmaOrdered By: Ajit Pettit on 05-16-2024 Glucose [Mass/Vol] 74 mg/dL Normal 70-100 [facility] Comment on above: ADA recommended refe rence rangeRandom Glucose Reference Range is dependent on time and content of last meal. Glucose of more than 200 mg/dL in a nonstressed, ambulatory subject supports the diagnosis of Diabetes Mellitus. Order Comment: Name Collection Type:: Martinez Catheter Result Comment: [place] om Glucose Reference Range is dependent on time and content of last meal. Glucose of more than 200 mg/dL in a nonstressed, ambulatory subject supports the diagnosis of Diabetes Mellitus. ADA recommended reference range Performed By: #### A DDONUAPLUS #### [facility] [address] [place] [id number] [facility] Glucose mean value [Mass/vol ume] in Blood Estimated from glycated hemoglobinOrdered By: Ajit Pettit on 05-16-2024 Average glucose Estimated from glycated hemoglobin (Bld) [Mass/Vol] 137 mg/dL [facility] Hematocrit [Volume Fraction] of Blood by Automated countOrdered By: Ajit Pettit on 05-16-2024 Hematocrit (Bld) [Volume fraction] 41.1 % Normal 34.0-46.4 [facility] Comment on above: Order Comment: Name Collection Type:: Martinez Catheter Performed By: #### A DDONUAPLUS #### [facility] [address] [place] [id number] [place] Hemoglobin A1c percentageOrd ered By: Ajit Pettit on 05-16-2024 HbA1c (Bld) [Mass fraction] 6.4 % High 4.3-5.6 [facility] Comment on above: Increased risk for d iabetes: 5.7 - 6.4diabetes: >6.4glycemic control for adults with diabetes: <7.0 Order Comment: Name Collection Type:: Martinez Catheter Result Comment: Incr eased risk for diabetes: 5.7 - 6.4 diabetes: >6.4 glycemic control for adults with diabetes: <7.0 Performed By: #### A DDONUAPLUS #### [facility] [address] Hemoglobin [Mass/volume] in BloodOrdered By: Ajit Pettit on 05-16-2024 Hemoglobin (Bld) [Mass/Vol] 14.1 g/dL Normal 11.8-15.4 [facility] Comment on above: Order Comment: Name Collection Type:: Martinez Catheter Performed By: #### A DDONUAPLUS #### [facility] [address] Leukocytes [#/volume] correc cherie for nucleated erythrocytes in Blood by Automated counOrdered By: Ajit Pettit on 05-16-2024 WBC corrected for nucl RBC Auto (Bld) [#/Vol] 15.0 10*3/uL High 3.8-11.6 [facility] Leukocytes [#/volume] in Blo od by Automated countOrdered By: Ajit Pettit on 05-16-2024 WBC (Bld) [#/Vol] 15.0 10*3/uL High 3.8-11.6 [facility] Comment on above: Order Comment: Name Collection Type:: Martinez Catheter Performed By: #### A DDONUAPLUS #### [address] Lipid Panelon 05-16-2024 LDL Cholesterol,Calculated 130 mg/dL High 0-100 [facility] Comment on above: Order Comment: Name Collection Type:: Martinez Catheter Result Comment: LDL ATP III CLASSIFICATION LDL less than 100 mg/dL Optimal LDL 100-129 mg/dL Near or above optimal LDL 130-159 mg/dL Borderline high LDL 160-189 mg/dL High LDL greater than 189 mg/dL Very high Performed By: #### A DDONUAPLUS #### [facility] [address] [place] [address] Triglyceride w/Reflex 321 mg/dL High 0-149 [facility] Comment on above: Order Comment: Name Collection Type:: Martinez Catheter Result Comment: TRIG ATP III CLASSIFICATION TRIG less than 150 mg/dL Normal TRIG 150-199 mg/dL Borderline high TRIG 200-500 mg/dL High TRIG greater than 500 mg/dL Very high Standard traceable to the Center for Disease Conrtrol and Prevention (CDC) test method. Performed By: #### A DDONUAPLUS #### [address] VLDL CHOLESTEROL 64 mg/dL Normal [facility] Comment on above: Order Comment: Name Collection Type:: Martinez Catheter Performed By: #### A DDONUAPLUS #### [address] Lymphocytes [#/volume] in Bl ood by Automated countOrdered By: Ajit Pettit on 05-16-2024 Lymphocytes (Bld) [#/Vol] 5.0 10*3/uL High 1.00-4.8 [facility] Comment on above: Order Comment: Name Collection Type:: Martinez Catheter Performed By: #### A DDONUAPLUS #### [address] Lymphocytes/100 leukocytes i n Blood by Automated countOrdered By: Ajit Pettit on 05-16-2024 Lymphocytes/100 WBC (Bld) 33.0 % Normal . [facility] Comment on above: Order Comment: Name Collection Type:: Martinez Catheter Performed By: #### A DDONUAPLUS #### [address] MCH [Entitic mass] by Automa cherie countOrdered By: Ajit Pettit on 05-16-2024 MCH (RBC) [Entitic mass] 30.3 pg Normal 24.7-34.3 [facility] Comment on above: Order Comment: Name Collection Type:: Martinez Catheter Performed By: #### A DDONUAPLUS #### [address] MCHC Auto (RBC) [Mass/Vol]Or dered By: Ajit Pettit on 05-16-2024 MCHC (RBC) [Mass/Vol] 34.3 g/dL 32.0-35.0 [facility] MCV [Entitic volume] by Auto mated countOrdered By: Ajit Pettit on 08-13-2024 MCV (RBC) [Entitic vol] 88.4 fL Normal 80-100 [facility] Comment on above: Order Comment: Name Collection Type:: Martinez Catheter Performed By: #### A DDONUAPLUS #### [address] Neutrophils [#/volume] in Bl ood by Automated countOrdered By: Ajit Pettit on 05-16-2024 Neutrophils (Bld) [#/Vol] 9.3 10*3/uL High 1.8-7.7 [facility] Comment on above: Order Comment: Name Collection Type:: Martinez Catheter Performed By: #### A DDONUAPLUS #### [address] No Panel InformationOrdered By: Ajit Pettit on 05-16-2024 Estimated GFR (CKD-EPI) > 60.0 mL/Min [facility] Creatinine Clearance (Chem N/A [facility] Nucleated erythrocytes [Pres ence] in Blood by Automated countOrdered By: Ajit Pettit on 05-16-2024 Nucleated RBC Auto Ql (Bld) 0.1 /100{WBC} 0-0.5 [facility] Platelet mean volume [Entiti c volume] in Blood by Automated countOrdered By: Ajit Pettit on 05-16-2024 Platelet mean volume (Bld) [Entitic vol] 7.9 fL Normal 6.3-10.7 [facility] Comment on above: Order Comment: Name Collection Type:: Martinez Catheter Performed By: #### A DDONUAPLUS #### [place] [address] [place] Platelets [#/volume] in Bloo d by Automated countOrdered By: Ajit Pettit on 05-16-2024 Platelets (Bld) [#/Vol] 400 10*3/uL Normal 150-450 [facility] Comment on above: Order Comment: Name Collection Type:: Martinez Catheter Performed By: #### A DDONUAPLUS #### [address] Potassium [Moles/volume] in Serum or PlasmaOrdered By: Ajit Pettit on 05-16-2024 Potassium [Moles/Vol] 4.1 mmol/L Normal 3.5-5.1 [facility] Comment on above: Order Comment: Name Collection Type:: Martinez Catheter Performed By: #### A DDONUAPLUS #### [facility] [address] [place] [address] Protein [Mass/volume] in Ser um or PlasmaOrdered By: Ajit Pettit on 05-16-2024 Protein [Mass/Vol] 6.7 g/dL Normal 6.4-8.9 [facility] Comment on above: Order Comment: Name Collection Type:: Martinez Catheter Performed By: #### A DDONUAPLUS #### [address] Serum globulin measurement b y calculation (mass/volume)Ordered By: Ajit Pettit on 05-16-2024 Globulin (S) [Mass/Vol] 2.5 g/dL Normal [facility] Comment on above: Order Comment: Name Collection Type:: Martinez Catheter Performed By: #### A DDONUAPLUS #### [facility] [address] [place] [address] Serum or plasma albumin/glob ulin mass ratioOrdered By: Ajit Pettit on 05-16-2024 Albumin/Globulin [Mass ratio] 1.7 {ratio} Normal [facility] Comment on above: Order Comment: Name Collection Type:: Martinez Catheter Performed By: #### A DDONUAPLUS #### [facility] [address] [place] [address] Serum or plasma anion gap de terminationOrdered By: Ajit Pettit on 05-16-2024 Anion gap [Moles/Vol] 13.1 mmol/L Normal 6.0-15.0 [facility] Comment on above: Order Comment: Name Collection Type:: Martinez Catheter Performed By: #### A DDONUAPLUS #### [facility] [address] [place] [address] Serum or plasma high density lipoprotein (HDL) cholesterol measurementOrdered By: Ajit Pettit on 05-16-2024 Cholesterol in HDL [Mass/Vol] 43 mg/dL Normal 23-92 [facility] Comment on above: HDL CHOL ATP-III CLA SSIFICATION Cardiovascular RiskHDL > or equal to 60 mg/dL LOWHDL < 40 mg/dL HIGH Order Comment: Name Collection Type:: Martinez Catheter Result Comment: HDL CHOL ATP-III CLASSIFICATION Cardiovascular Risk HDL > or equal to 60 mg/dL LOW HDL < 40 mg/dL HIGH Performed By: #### A DDONUAPLUS #### [facility] [address] [place] [address] Serum or plasma total choles terol/high density lipoprotein (HDL) cholesterol mass ratOrdered By: Ajit Pettit on 05-16-2024 Cholesterol.total/Suellen sterol in HDL [Mass ratio] 5.5 {ratio} Normal <5.0 [facility] Comment on above: Order Comment: Name Collection Type:: Martinez Catheter Performed By: #### A DDONUAPLUS #### [facility] [address] [place] [address] [place] Sodium [Moles/volume] in Ser um or PlasmaOrdered By: Ajit Pettit on 05-16-2024 Sodium [Moles/Vol] 131 mmol/L Low 136-145 [facility] Comment on above: Order Comment: Name Collection Type:: Martinez Catheter Performed By: #### A DDONUAPLUS #### [facility] [address] [place] [address] [place] Thyroid Stim Hormone w/Rflxo n 05-16-2024 Thyroid Stim Hormone w/Rflx 1.69 u[iU]/mL Normal 0.45-5.33 [facility] Comment on above: Order Comment: Name Collection Type:: Martinez Catheter Performed By: #### A DDONUAPLUS #### [facility] [address] [place] [address] [place] Thyrotropin [Units/volume] i n Serum or PlasmaOrdered By: Ajit Pettit on 05-16-2024 TSH Qn 1.69 m[IU]/L 0.45-5.33 [facility] Triglyceride [Mass/volume] i n Serum or PlasmaOrdered By: Ajit Pettit on 05-16-2024 Triglyceride [Mass/Vol] 321 mg/dL High 0-149 [facility] Comment on above: TRIG ATP III CLASSIF ICATIONTRIG less than 150 mg/dL NormalTRIG 150-199 mg/dL Borderline highTRIG 200-500 mg/dL High TRIG greater than 500 mg/dL Very highStandard traceable to the Center for Disease Conrtrol and Prevention (CDC) test method. Urea nitrogen [Mass/volume] in Serum or PlasmaOrdered By: Ajit Pettit on 05-16-2024 Urea nitrogen [Mass/Vol] 5 mg/dL Low 7-25 [facility] Comment on above: Order Comment: Name Collection Type:: Martinez Catheter Performed By: #### A DDONUAPLUS #### [place] [id number] [facility] Vitamin D 25 Hydroxy Totalon 05-16-2024 Vitamin D 25 Hydroxy Total 46.2 ng/mL Normal 30-100 [facility] Comment on above: Order Comment: Name Collection Type:: Martinez Catheter Result Comment: MICHAEL MIN D STATUS 25(OH)VITAMIN D RANGE (ng/mL) Deficient <20 Insufficient 20 to <30 Sufficient 30 to 100 Reference: Dominique Restrepo, Gillian NINA, et al. Evaluation,treatment, and prevention of vitamin D deficiency; an Endocrine Society clinical practice guideline. JCEM. 2010; 96(7):1911-30. PERFORMED BY: [place] [address] PATHOLOGIST SHEEP SORTER RIDGE HUERTA M.D. Performed By: #### A DDONUAPLUS #### [place] [id number] [facility] Vitamin D+Metabolites [Mass/ volume] in Serum or PlasmaOrdered By: Ajit Pettit on 05-16-2024 Vitamin D+Metabolites [Mass/Vol] 46.2 ng/mL 30-100 [facility] Comment on above: VITAMIN D STATUS 25( [place])VITAMIN D RANGE (ng/mL) Deficient <20 Insufficient 20 to <30Sufficient 30 to 100Reference: Dominique Restrepo, Gillian NINA, et al. Evaluation,treatment, and prevention of vitamin D deficiency; an Endocrine Society clinical practice guideline. JCEM. 2010; 96(7):1911-30. Capillary blood glucose ashwini urement by glucometer (mass/volume)Ordered By: Abi Sunshine on 03-16-2024 Glucose [Mass/Vol] 140 mg/dL Normal [facility] Comment on above: Random Glucose Refer ence Range is dependent on time and content of last meal. Glucose of more than 200 mg/dL in a nonstressed, ambulatory subject supports the diagnosis of Diabetes Mellitus. Result Comment: [place] om Glucose Reference Range is dependent on time and content of last meal. Glucose of more than 200 mg/dL in a nonstressed, ambulatory subject supports the diagnosis of Diabetes Mellitus. PERFORMED BY: [place] [address] PATHOLOGIST SHEEP SORTER RIDGE HUERTA M.D. Performed By: #### C UBLD, [facility] #### [address] 03-16-2024 L Specimen: [id number] Received: 03/16/24 Status: BLUE Neal Num: [id number] Spec Type: Surgical Subm Dr: Abi Sunshine DO Tissues: A Colon Biopsy (RT RANDOM COLON BX) B Colon Biopsy (RANDOM LT) C Colon Biopsy (TRANSV POLYPS) D Colon Biopsy (RECTAL POLYP) Procedures: HE/8, Gross/Micro L4/4 Age/ Patient Sex Location Account Attending Physician Rachel Mcgarry 44/F [id number] Abi Sunshine DO SPEC NUM: [id number] RECD: 03/16/24 STATUS: BLUE NEAL NUM: [id number] JOSEPH: 03/16/24- SUBM DR: Abi Sunshine DO ENTERED: 03/16/[address]: SPEC TYPE: Surgical DEPT: S [...] -Serrated hyperplastic polyp in both fragments Specimen: [id number] Received: 03/16/24 Status: BLUE Neal Num: [id number] Spec Type: Surgical Subm Dr: Abi Sunshine, DO Tissues: A Colon Biopsy (RT RANDOM COLON BX) B Colon Biopsy (RANDOM LT) C Colon Biopsy (TRANSV POLYPS) D Colon Biopsy (RECTAL POLYP) Procedures: HE/Dagoberto, Gross/Micro L4/4 Patient: Rachel Mcgarry [id number] (Continued) Specimen: [id number] Received: 03/16/24 (Continued) Signed (signature on file) Philomena Grimm MD 03/18/24 1111 Specimen: [id number] Received: 03/16/24 Status: BLUE Neal Num: [id number] Spec Type: Surgical Subm Dr: Abi Sunshine DO Tissues: A Colon Biopsy (RT RANDOM COLON BX) B Colon Biopsy (RANDOM LT) C Colon Biopsy (TRANSV POLYPS) D Colon Biopsy (RECTAL POLYP) Procedures: HE/Dagoberto, Gross/Micro L4/4 Patient: Rachel Mcgarry [id number] (Continued) Specimen: [id number] Received: 03/16/24 (Continued) Clinical Information Screening, diarrhea. [...] cm, entirely submitted in D1. CPT Codes 43471W9 Specimen: [id number] Received: 03/16/24 Status: BLUE Neal Num: [id number] Spec Type: Surgical Subm Dr: Abi Sunshine DO Tissues: A Colon Biopsy (RT RANDOM COLON BX) B Colon Biopsy (RANDOM LT) C Colon Biopsy (TRANSV POLYPS) D Colon Biopsy (RECTAL POLYP) Procedures: GAVIN/Dagoberto, Gross/Micro L4/4 Patient: Rachel Mcgarry [id number] (Continued) Signed (signature on file) Philomena Grimm MD 03/18/24 1111 Normal [facility] XR lumbar spine AP/LAT/FLX/E XTon 03-02-2024 XR lumbar spine AP/LAT/FLX/EXT [facility] [address] XRay Report Signed Patient: Rachel Mcgarry MR#: [id number] 1 : 1980 Acct:[id number] Age/Sex: 44 / F ADM Date: 03/02/24 Loc: Room: [facility] Attending Dr: Kyler Miramontes MD Copies [...] Yeboah Jr., D.OPanchito03/02/2024 2:52 PM Dictation Location: [place] [address] Transcribed By: [facility] 03/02/24 3496 Dictated By: Andrés Yeboah Jr, DO 03/02/24 1440 Signed By: 03/02/24 1452 Normal [facility] US breast RT limitedon 02-08 US breast RT limited [facility] [place] [address] [place] [address] Ultrasound Report Signed Patient: Rachel Mcgarry MR#: [id number] 1 : 1980 Acct:[id number] Age/Sex: 44 / F ADM Date: 02/09/24 Loc: [facility] Room: Type: [facility] Attending Dr: Ajit DEJESUS Ordering Provider: [...] Dar Messina M.D.02/09/2024 9:33 AM Dictation Location: [facility] Tech: Janet Krause Transcribed By: ROSA MARIA 02/09/24932 Dictated By: Dar Messina II, MD 02/09/2429 Signed By: 02/09/24932 Normal [facility] MM screening mammo BI w/CADo n 02-04-2024 MM screening mammo BI w/CAD [facility] [place] [address] [place] [address] Mammography Report Signed Patient: Rachel Mcgarry MR#: [id number] 1 : 1980 Acct:[id number] Age/Sex: 44 / F ADM Date: 02/04/24 Loc: [place] Room: Type: [facility] Attending Dr: Ajit DEJESUS Copies to: [...] Eda Yañez M.D.02/04/2024 2:28 PM Dictation Location: [facility] Transcribed By: ROSA MARIA 02/04/24 1428 Dictated By: Eda Yañez MD 02/04/24 1418 Signed By: 02/04/24 1428 Normal [facility] US renal BIon 01-21-2024 US renal BI [facility] Main [place] [address] [place] [address] Ultrasound Report Signed Patient: Rachel Mcgarry MR#: [id number] 1 : 1980 Acct:[id number] Age/Sex: 44 / F ADM Date: 01/21/24 Loc: Room: [facility] Attending Dr: Ajit DEJESUS Ordering Provider: [...] findings. Impression dictated by: Andrés Yeboah Jr., Lei01/21/2024 2:50 PM Dictation Location: [place] [address] Tech: Mariza Garnett Transcribed By: [facility] 01/21/24 1450 Dictated By: Andrés Yeboah Jr, DO 01/21/24 1450 Signed By: 01/21/24 1450 Normal [facility] Alanine aminotransferase [En zymatic activity/volume] in Serum or PlasmaOrdered By: Ajit Pettit on 01-18-2024 ALT [Catalytic activity/Vol] 8 U/L Normal 7-52 [facility] Comment on above: Order Comment: Reaso n for Exam Type 2 diabetes mellitus without complication, without long- Performed By: #### F E and TIBC, LIPID, CBC, CMP, LDLD ####[facility] [id number] [place] [address] [place] Performed By: #### C UBLD, LACTIC #### [facility] [address] [place] [address] Albumin [Mass/volume] in Ser um or Plasma by Bromocresol green (BCG) dye binding methoOrdered By: Ajit Pettit on 01-18-2024 Albumin BCG dye [Mass/Vol] 4.1 g/dL 3.5-5.7 [facility] Alkaline phosphatase [Enzyma tic activity/volume] in Serum or PlasmaOrdered By: Ajit Pettit on 01-18-2024 ALP [Catalytic activity/Vol] 58 U/L Normal 34-104 [facility] Comment on above: Order Comment: Reaso n for Exam Type 2 diabetes mellitus without complication, without long- Performed By: #### F E and TIBC, LIPID, CBC, CMP, LDLD ####[facility] [place] [address] [place] Performed By: #### C UBLD, LACTIC #### [facility] [address] [place] [address] Aspartate aminotransferase [ Enzymatic activity/volume] in Serum or PlasmaOrdered By: Ajit Pettit on 01-18-2024 AST [Catalytic activity/Vol] 9 U/L Low 13-39 [facility] Comment on above: Order Comment: Reaso n for Exam Type 2 diabetes mellitus without complication, without long- Performed By: #### F E and TIBC, LIPID, CBC, CMP, LDLD ####[facility] [id number] [place] [address] [place] Performed By: #### C UBLD, LACTIC #### [facility] [address] [place] [address] [place] Automated basophil %Ordered By: Ajit Pettit on 01-18-2024 Basophils/100 WBC (Bld) 1.2 % Normal . [facility] Comment on above: Order Comment: Reaso n for Exam Type 2 diabetes mellitus without complication, without long- Performed By: #### F E and TIBC, LIPID, CBC, CMP, LDLD ####[facility] [id number] [place] [address] [place] Performed By: #### C UBLD, LACTIC #### [facility] [address] [place] [address] [place] Automated basophil countOrde red By: Ajit Pettit on 01-18-2024 Basophils (Bld) [#/Vol] 0.2 10*3/uL Normal 0.0-0.2 [facility] Comment on above: Order Comment: Reaso n for Exam Type 2 diabetes mellitus without complication, without long- Result Comment: PERF ORMED BY: [place] [address] PATHOLOGIST SHEEP SORTER RIDGE HUERTA M.D. Performed By: #### F E and TIBC, LIPID, CBC, CMP, LDLD ####[address] Performed By: #### C UBLD, LACTIC #### [address] Automated blood monocyte cou ntOrdered By: Ajit Pettit on 01-18-2024 Monocytes (Bld) [#/Vol] 0.9 10*3/uL High 0.0-0.8 [facility] Comment on above: Order Comment: Reaso n for Exam Type 2 diabetes mellitus without complication, without long- Performed By: #### F E and TIBC, LIPID, CBC, CMP, LDLD ####[address] Performed By: #### C UBLD, LACTIC #### [address] Automated eosinophil %Ordere d By: Ajit Pettit on 01-18-2024 Eosinophils/100 WBC (Bld) 0.9 % Normal . [facility] Comment on above: Order Comment: Reaso n for Exam Type 2 diabetes mellitus without complication, without long- Performed By: #### F E and TIBC, LIPID, CBC, CMP, LDLD ####[address] Performed By: #### C UBLD, LACTIC #### [address] Automated eosinophil countOr dered By: Ajit Pettit on 01-18-2024 Eosinophils (Bld) [#/Vol] 0.1 10*3/uL Normal 0.0-0.45 [facility] Comment on above: Order Comment: Reaso n for Exam Type 2 diabetes mellitus without complication, without long- Performed By: #### F E and TIBC, LIPID, CBC, CMP, LDLD ####[address] Performed By: #### C UBLD, LACTIC #### [address] Automated monocyte %Ordered By: Ajit Pettit on 01-18-2024 Monocytes/100 WBC (Bld) 7.1 % Normal . [facility] Comment on above: Order Comment: Reaso n for Exam Type 2 diabetes mellitus without complication, without long- Performed By: #### F E and TIBC, LIPID, CBC, CMP, LDLD ####[address] Performed By: #### C UBLD, LACTIC #### [address] Automated neutrophil %Ordere d By: Ajit Pettit on 01-18-2024 Neutrophils/100 WBC (Bld) 60.9 % Normal . [facility] Comment on above: Order Comment: Reaso n for Exam Type 2 diabetes mellitus without complication, without long- Performed By: #### F E and TIBC, LIPID, CBC, CMP, LDLD ####[address] Performed By: #### C UBLD, LACTIC #### [address] Bilirubin.total [Mass/volume ] in Serum or PlasmaOrdered By: Ajit Pettit on 01-18-2024 Bilirubin [Mass/Vol] 0.4 mg/dL Normal 0.3-1.0 [facility] Comment on above: Order Comment: Reaso n for Exam Type 2 diabetes mellitus without complication, without long- Performed By: #### F E and TIBC, LIPID, CBC, CMP, LDLD ####[address] Performed By: #### C UBLD, LACTIC #### [place] [address] [place] Calcium [Mass/volume] in Ser um or PlasmaOrdered By: Ajit Spasic on 01-18-2024 Calcium [Mass/Vol] 9.5 mg/dL Normal 8.6-10.3 [facility] Comment on above: Order Comment: Reaso n for Exam Type 2 diabetes mellitus without complication, without long- Performed By: #### F E and TIBC, LIPID, CBC, CMP, LDLD ####[place] [address] [place] Performed By: #### C UBLD, LACTIC #### [address] Carbon dioxide, total [Moles /volume] in Serum or PlasmaOrdered By: Ajit Spasic on 01-18-2024 CO2 [Moles/Vol] 22.0 mmol/L Normal 21.0-31.0 [facility] Comment on above: Order Comment: Reaso n for Exam Type 2 diabetes mellitus without complication, without long- Performed By: #### F E and TIBC, LIPID, CBC, CMP, LDLD ####[address] Performed By: #### C UBLD, LACTIC #### [place] [address] [place] Chloride [Moles/volume] in S alissa or PlasmaOrdered By: Ajit Spasic on 01-18-2024 Chloride [Moles/Vol] 103 mmol/L Normal 98-107 [facility] Comment on above: Order Comment: Reaso n for Exam Type 2 diabetes mellitus without complication, without long- Performed By: #### F E and TIBC, LIPID, CBC, CMP, LDLD ####[place] [address] [place] Performed By: #### C UBLD, LACTIC #### [address] [place] [address] [place] Cholesterol [Mass/volume] in Serum or PlasmaOrdered By: Ajit Pettit on 01-18-2024 Cholesterol [Mass/Vol] 188 mg/dL Normal 140-200 [facility] Comment on above: Chol less than 200 m g/dl low riskChol 201-239 mg/dl borderline riskChol 240 mg/dl and greater high risk Order Comment: Reaso n for Exam Type 2 diabetes mellitus without complication, without long- Result Comment: Chol less than 200 mg/dl low risk Chol 201-239 mg/dl borderline risk Chol 240 mg/dl and greater high risk Performed By: #### F E and TIBC, LIPID, CBC, CMP, LDLD ####[facility] Performed By: #### C UBLD, LACTIC #### [facility] [address] [place] [address] Cholesterol in LDL Calc [Mas s/Vol]Ordered By: Ajit Pettit on 01-18-2024 Cholesterol in LDL [Mass/Vol] TNP [facility] Comment on above: Test not performed Cholesterol in LDL [Mass/vol ume] in Serum or PlasmaOrdered By: Ajit Pettit on 01-18-2024 Cholesterol in LDL [Mass/Vol] 97 mg/dL 0-100 [facility] Comment on above: LDL ATP III CLASSIFI CATIONLDL less than 100 mg/dL OptimalLDL 100-129 mg/dL Near or above optimalLDL 130-159 mg/dL Borderline highLDL 160-189 mg/dL HighLDL greater than 189 mg/dL Very high Cholesterol in VLDL Calc [Ma ss/Vol]Ordered By: Ajit Pettit on 01-18-2024 Cholesterol in VLDL [Mass/Vol] 88 mg/dL [facility] Complete Blood Count Auto Di ffon 01-18-2024 Mean Corpuscular HGB Conc 33.1 g/dL Normal 32.0-35.0 [facility] Comment on above: Order Comment: Reaso n for Exam Type 2 diabetes mellitus without complication, without long- Performed By: #### F E and TIBC, LIPID, CBC, CMP, LDLD ####[address] Performed By: #### C UBLD, LACTIC #### [facility] [address] [place] [address] NRBC% 0.2 /100{WBC} Normal 0-0.5 [facility] Comment on above: Order Comment: Reaso n for Exam Type 2 diabetes mellitus without complication, without long- Performed By: #### F E and TIBC, LIPID, CBC, CMP, LDLD ####[address] Performed By: #### C UBLD, LACTIC #### [address] Comprehensive Metabolic Pane rosa 01-18-2024 Albumin [Mass/Vol] 4.1 g/dL Normal 3.5-5.7 [facility] Comment on above: Order Comment: Reaso n for Exam Type 2 diabetes mellitus without complication, without long- Performed By: #### F E and TIBC, LIPID, CBC, CMP, LDLD ####[address] Performed By: #### C UBLD, LACTIC #### [address] GFR/1.73 sq M.predicted MDRD (S/P/Bld) [Vol rate/Area] mL/min/{1.73_m2} Normal [facility] Comment on above: Order Comment: Reaso n for Exam Type 2 diabetes mellitus without complication, without long- Performed By: #### F E and TIBC, LIPID, CBC, CMP, LDLD ####[address] Performed By: #### C UBLD, LACTIC #### [address] Creatinine [Mass/volume] in Serum or PlasmaOrdered By: Ajit Pettit on 01-18-2024 Creatinine [Mass/Vol] 0.42 mg/dL Low 0.60-1.20 [facility] Comment on above: Order Comment: Reaso n for Exam Type 2 diabetes mellitus without complication, without long- Performed By: #### F E and TIBC, LIPID, CBC, CMP, LDLD ####[address] Performed By: #### C UBLD, LACTIC #### [address] Erythrocyte distribution wid th [Ratio] by Automated countOrdered By: Ajit Pettit on 01-18-2024 Erythrocyte distribution width (RBC) [Ratio] 13.4 % Normal 11.9-15.3 [facility] Comment on above: Order Comment: Reaso n for Exam Type 2 diabetes mellitus without complication, without long- Performed By: #### F E and TIBC, LIPID, CBC, CMP, LDLD ####[address] Performed By: #### C UBLD, LACTIC #### [address] Erythrocytes [#/volume] in B lood by Automated countOrdered By: Ajit Pettit on 01-18-2024 RBC (Bld) [#/Vol] 4.67 10*6/uL Normal 3.60-5.00 [facility] Comment on above: Order Comment: Reaso n for Exam Type 2 diabetes mellitus without complication, without long- Performed By: #### F E and TIBC, LIPID, CBC, CMP, LDLD ####[address] Performed By: #### C UBLD, LACTIC #### [address] Glucose [Mass/volume] in Ser um or PlasmaOrdered By: Ajit Pettit on 01-18-2024 Glucose [Mass/Vol] 107 mg/dL High 70-100 [facility] Comment on above: ADA recommended refe rence rangeRandom Glucose Reference Range is dependent on time and content of last meal. Glucose of more than 200 mg/dL in a nonstressed, ambulatory subject supports the diagnosis of Diabetes Mellitus. Order Comment: Reaso n for Exam Type 2 diabetes mellitus without complication, without long- Result Comment: [place] Glucose Reference Range is dependent on time and content of last meal. Glucose of more than 200 mg/dL in a nonstressed, ambulatory subject supports the diagnosis of Diabetes Mellitus. ADA recommended reference range Performed By: #### F E and TIBC, LIPID, CBC, CMP, LDLD ####[address] Performed By: #### C UBLD, LACTIC #### [facility] [address] Hematocrit [Volume Fraction] of Blood by Automated countOrdered By: Ajit Pettit on 01-18-2024 Hematocrit (Bld) [Volume fraction] 40.8 % Normal 34.0-46.4 [facility] Comment on above: Order Comment: Reaso n for Exam Type 2 diabetes mellitus without complication, without long- Performed By: #### F E and TIBC, LIPID, CBC, CMP, LDLD ####[address] Performed By: #### C UBLD, LACTIC #### [address] Hemoglobin [Mass/volume] in BloodOrdered By: Ajit Pettit on 01-18-2024 Hemoglobin (Bld) [Mass/Vol] 13.5 g/dL Normal 11.8-15.4 [facility] Comment on above: Order Comment: Reaso n for Exam Type 2 diabetes mellitus without complication, without long- Performed By: #### F E and TIBC, LIPID, CBC, CMP, LDLD ####[place] [address] [place] Performed By: #### C UBLD, LACTIC #### [place] [address] [place] Iron [Mass/volume] in Serum or PlasmaOrdered By: Ajit Pettit on 01-18-2024 Iron [Mass/Vol] 89 ug/dL Normal 50-212 [facility] Comment on above: Order Comment: Reaso n for Exam Type 2 diabetes mellitus without complication, without long- Performed By: #### F E and TIBC, LIPID, CBC, CMP, LDLD ####[facility] [address] [place] [address] [place] Performed By: #### C UBLD, LACTIC #### [facility] [address] [place] [address] [place] Iron and TIBC Profileon 01-02 % Iron Saturation 23.8 % Normal 20-50 [facility] Comment on above: Order Comment: Reaso n for Exam Type 2 diabetes mellitus without complication, without long- Performed By: #### F E and TIBC, LIPID, CBC, CMP, LDLD ####[facility] [id number] Performed By: #### C UBLD, LACTIC #### [facility] [address] Total Iron Binding Capacity 374 ug/dL Normal 255-450 [facility] Comment on above: Order Comment: Reaso n for Exam Type 2 diabetes mellitus without complication, without long- Performed By: #### F E and TIBC, LIPID, CBC, CMP, LDLD ####[facility] [id number] [place] [address] Performed By: #### C UBLD, LACTIC #### [facility] [address] [place] [id number] [facility] Iron binding capacity [Mass/ volume] in Serum or PlasmaOrdered By: Ajit Spasic on 01-18-2024 Iron binding capacity [Mass/Vol] 374 ug/dL 255-450 [facility] Iron saturation [Mass Fracti on] in Serum or PlasmaOrdered By: Ajit Spasic on 01-18-2024 Iron saturation [Mass fraction] 23.8 % 20-50 [facility] LDL Cholesterol Measuredon 0 01-18-2024 LDL Cholesterol Measured 97 mg/dL Normal 0-100 [facility] Comment on above: Order Comment: Reaso n for Exam Type 2 diabetes mellitus without complication, without long- Result Comment: LDL ATP III CLASSIFICATION LDL less than 100 mg/dL Optimal LDL 100-129 mg/dL Near or above optimal LDL 130-159 mg/dL Borderline high LDL 160-189 mg/dL High LDL greater than 189 mg/dL Very high PERFORMED BY: [place] [address] PATHOLOGIST SHEEP SORTER RIDGE HUERTA M.D. Performed By: #### F E and TIBC, LIPID, CBC, CMP, LDLD ####[address] Performed By: #### C UBLD, LACTIC #### [address] Leukocytes [#/volume] correc cherie for nucleated erythrocytes in Blood by Automated counOrdered By: Ajit Pettit on 01-18-2024 WBC corrected for nucl RBC Auto (Bld) [#/Vol] 12.4 10*3/uL High 3.8-11.6 [facility] Leukocytes [#/volume] in Blo od by Automated countOrdered By: Ajit Pettit on 01-18-2024 WBC (Bld) [#/Vol] 12.4 10*3/uL High 3.8-11.6 [facility] Comment on above: Order Comment: Reaso n for Exam Type 2 diabetes mellitus without complication, without long- Performed By: #### F E and TIBC, LIPID, CBC, CMP, LDLD ####[address] Performed By: #### C UBLD, LACTIC #### [address] Lipid Panelon 01-18-2024 LDL Cholesterol,Calculated Not performed Normal 0-100 [facility] Comment on above: Order Comment: Reaso n for Exam Type 2 diabetes mellitus without complication, without long- Performed By: #### F E and TIBC, LIPID, CBC, CMP, LDLD ####[address] Performed By: #### C UBLD, LACTIC #### [address] Triglyceride w/Reflex 441 mg/dL High 0-149 [facility] Comment on above: Order Comment: [...] be calculated and resulted. Performed By: #### F E and TIBC, LIPID, CBC, CMP, LDLD ####[address] Performed By: #### C UBLD, LACTIC #### [address] VLDL CHOLESTEROL 88 mg/dL Normal [facility] Comment on above: Order Comment: Reaso n for Exam Type 2 diabetes mellitus without complication, without long- Performed By: #### F E and TIBC, LIPID, CBC, CMP, LDLD ####[address] Performed By: #### C UBLD, LACTIC #### [address] Lymphocytes [#/volume] in Bl ood by Automated countOrdered By: Ajit Pettit on 01-18-2024 Lymphocytes (Bld) [#/Vol] 3.7 10*3/uL Normal 1.00-4.8 [facility] Comment on above: Order Comment: Reaso n for Exam Type 2 diabetes mellitus without complication, without long- Performed By: #### F E and TIBC, LIPID, CBC, CMP, LDLD ####[address] Performed By: #### C UBLD, LACTIC #### [place] [address] [place] Lymphocytes/100 leukocytes i n Blood by Automated countOrdered By: Ajit ePttit on 01-18-2024 Lymphocytes/100 WBC (Bld) 29.9 % Normal . [facility] Comment on above: Order Comment: Reaso n for Exam Type 2 diabetes mellitus without complication, without long- Performed By: #### F E and TIBC, LIPID, CBC, CMP, LDLD ####[address] Performed By: #### C UBLD, LACTIC #### [address] MCH [Entitic mass] by Automa cherie countOrdered By: Ajit Pettit on 01-18-2024 MCH (RBC) [Entitic mass] 28.9 pg Normal 24.7-34.3 [facility] Comment on above: Order Comment: Reaso n for Exam Type 2 diabetes mellitus without complication, without long- Performed By: #### F E and TIBC, LIPID, CBC, CMP, LDLD ####[address] Performed By: #### C UBLD, LACTIC #### [address] MCHC Auto (RBC) [Mass/Vol]Or dered By: Ajit Pettit on 01-18-2024 MCHC (RBC) [Mass/Vol] 33.1 g/dL 32.0-35.0 [facility] MCV [Entitic volume] by Auto mated countOrdered By: Ajit Pettit on 01-18-2024 MCV (RBC) [Entitic vol] 87.3 fL Normal 80-100 [facility] Comment on above: Order Comment: Reaso n for Exam Type 2 diabetes mellitus without complication, without long- Performed By: #### F E and TIBC, LIPID, CBC, CMP, LDLD ####[address] Performed By: #### C UBLD, LACTIC #### [address] Microalbumin [Mass/volume] i n UrineOrdered By: Ajit Pettit on 01-18-2024 Albumin DL <= 20 mg/L (U) [Mass/Vol] 0.8 mg/dL Normal 0.0-1.8 [facility] Comment on above: Order Comment: Reaso n for Exam Type 2 diabetes mellitus without complication, without long- Result Comment: PERF ORMED BY: [place] [address] PATHOLOGIST SHEEP SORTER RIDGE HUERTA M.D. Performed By: #### C UBLD, LACTIC #### [facility] [address] [place] [address] Neutrophils [#/volume] in Bl ood by Automated countOrdered By: Ajit Pettit on 01-18-2024 Neutrophils (Bld) [#/Vol] 7.6 10*3/uL Normal 1.8-7.7 [facility] Comment on above: Order Comment: Reaso n for Exam Type 2 diabetes mellitus without complication, without long- Performed By: #### F E and TIBC, LIPID, CBC, CMP, LDLD ####[facility] [id number] [place] [address] Performed By: #### C UBLD, LACTIC #### [facility] [address] [place] [address] No Panel InformationOrdered By: Ajit Pettit on 01-18-2024 Estimated GFR (CKD-EPI) > 60.0 mL/Min [facility] Creatinine Clearance (Chem N/A [facility] Nucleated erythrocytes [Pres ence] in Blood by Automated countOrdered By: Ajit Pettit on 01-18-2024 Nucleated RBC Auto Ql (Bld) 0.2 /100{WBC} 0-0.5 [facility] Platelet mean volume [Entiti c volume] in Blood by Automated countOrdered By: Ajit Pettit on 01-18-2024 Platelet mean volume (Bld) [Entitic vol] 8.8 fL Normal 6.3-10.7 [facility] Comment on above: Order Comment: Reaso n for Exam Type 2 diabetes mellitus without complication, without long- Performed By: #### F E and TIBC, LIPID, CBC, CMP, LDLD ####[facility] [id number] [place] [address] Performed By: #### C UBLD, LACTIC #### [address] Platelets [#/volume] in Bloo d by Automated countOrdered By: Ajit Pettit on 01-18-2024 Platelets (Bld) [#/Vol] 275 10*3/uL Normal 150-450 [facility] Comment on above: Order Comment: Reaso n for Exam Type 2 diabetes mellitus without complication, without long- Performed By: #### F E and TIBC, LIPID, CBC, CMP, LDLD ####[address] Performed By: #### C UBLD, LACTIC #### [address] Potassium [Moles/volume] in Serum or PlasmaOrdered By: Ajit Pettit on 01-18-2024 Potassium [Moles/Vol] 4.3 mmol/L Normal 3.5-5.1 [facility] Comment on above: Order Comment: Reaso n for Exam Type 2 diabetes mellitus without complication, without long- Performed By: #### F E and TIBC, LIPID, CBC, CMP, LDLD ####[address] Performed By: #### C UBLD, LACTIC #### [address] Protein [Mass/volume] in Ser um or PlasmaOrdered By: Ajit Pettit on 01-18-2024 Protein [Mass/Vol] 6.6 g/dL Normal 6.4-8.9 [facility] Comment on above: Order Comment: Reaso n for Exam Type 2 diabetes mellitus without complication, without long- Performed By: #### F E and TIBC, LIPID, CBC, CMP, LDLD ####[address] Performed By: #### C UBLD, LACTIC #### [address] Serum globulin measurement b y calculation (mass/volume)Ordered By: Ajit Pettit on 01-18-2024 Globulin (S) [Mass/Vol] 2.5 g/dL Normal [facility] Comment on above: Order Comment: Reaso n for Exam Type 2 diabetes mellitus without complication, without long- Performed By: #### F E and TIBC, LIPID, CBC, CMP, LDLD ####[address] Performed By: #### C UBLD, LACTIC #### [facility] [address] Serum or plasma albumin/glob ulin mass ratioOrdered By: Ajit Pettit on 01-18-2024 Albumin/Globulin [Mass ratio] 1.6 {ratio} [facility] Comment on above: Order Comment: Reaso n for Exam Type 2 diabetes mellitus without complication, without long- Performed By: #### F E and TIBC, LIPID, CBC, CMP, LDLD ####[address] Performed By: #### C UBLD, LACTIC #### [facility] [address] [place] [address] Serum or plasma anion gap de terminationOrdered By: Ajit Pettit on 01-18-2024 Anion gap [Moles/Vol] 15.3 mmol/L High 6.0-15.0 [facility] Comment on above: Order Comment: Reaso n for Exam Type 2 diabetes mellitus without complication, without long- Performed By: #### F E and TIBC, LIPID, CBC, CMP, LDLD ####[facility] [id number] [place] [address] Performed By: #### C UBLD, LACTIC #### [facility] [address] [place] [address] Serum or plasma high density lipoprotein (HDL) cholesterol measurementOrdered By: Ajit Pettit on 01-18-2024 Cholesterol in HDL [Mass/Vol] 37 mg/dL Normal 23-92 [facility] Comment on above: HDL CHOL ATP-III CLA SSIFICATION Cardiovascular RiskHDL > or equal to 60 mg/dL LOWHDL < 40 mg/dL HIGH Order Comment: Reaso n for Exam Type 2 diabetes mellitus without complication, without long- Result Comment: HDL CHOL ATP-III CLASSIFICATION Cardiovascular Risk HDL > or equal to 60 mg/dL LOW HDL < 40 mg/dL HIGH Performed By: #### F E and TIBC, LIPID, CBC, CMP, LDLD ####[address] Performed By: #### C UBLD, LACTIC #### [address] Serum or plasma total choles terol/high density lipoprotein (HDL) cholesterol mass ratOrdered By: Ajit Pettit on 01-18-2024 Cholesterol.total/Suellen sterol in HDL [Mass ratio] 5.1 {ratio} Normal <5.0 [facility] Comment on above: Order Comment: Reaso n for Exam Type 2 diabetes mellitus without complication, without long- Result Comment: PERF ORMED BY: [place] [address] PATHOLOGIST SHEEP SORTER RIDGE HUERTA M.D. Performed By: #### F E and TIBC, LIPID, CBC, CMP, LDLD ####[address] Performed By: #### C UBLD, LACTIC #### [address] Sodium [Moles/volume] in Ser um or PlasmaOrdered By: Ajit Pettit on 01-18-2024 Sodium [Moles/Vol] 136 mmol/L Normal 136-145 [facility] Comment on above: Order Comment: Reaso n for Exam Type 2 diabetes mellitus without complication, without long- Performed By: #### F E and TIBC, LIPID, CBC, CMP, LDLD ####[address] Performed By: #### C UBLD, LACTIC #### [address] Transferrin [Mass/volume] in Serum or PlasmaOrdered By: Ajit Pettit on 01-18-2024 Transferrin [Mass/Vol] 267 mg/dL Normal 203-362 [facility] Comment on above: Order Comment: Reaso n for Exam Type 2 diabetes mellitus without complication, without long- Performed By: #### F E and TIBC, LIPID, CBC, CMP, LDLD ####[facility] [id number] Performed By: #### C UBLD, LACTIC #### [facility] [address] Triglyceride [Mass/volume] i n Serum or [...] [Mass/Vol] 10 mg/dL Normal 7-25 [facility] Comment on above: Order Comment: Reaso n for Exam Type 2 diabetes mellitus without complication, without long- Performed By: #### F E and TIBC, LIPID, CBC, CMP, LDLD ####[facility] [id number] Performed By: #### C UBLD, LACTIC #### [facility] [address] Activated partial thrombopla stin time (aPTT) in platelet poor plasma by coagulation aOrdered By: Diego Noble on 10-16-2023 aPTT Coag (PPP) [Time] 28.2 s 25.1-36.5 [facility] Comment on above: A hematocrit value g reater than 55% may lead to inaccurate results in coagulation testing. Patients having hematocrit values >55% require a special collection tube for coagulation studies. Please contact the laboratory at [phone] for redraw instructions. Alanine aminotransferase [En zymatic activity/volume] in Serum or PlasmaOrdered By: Diego Noble on 10-16-2023 ALT [Catalytic activity/Vol] 10 U/L Normal 7-52 [facility] Comment on above: Performed By: #### C UBLD, LACTIC #### [facility] [address] [place] [address] [place] Albumin [Mass/volume] in Ser um or Plasma by Bromocresol green (BCG) dye binding methoOrdered By: Diego Noble on 10-16-2023 Albumin BCG dye [Mass/Vol] 3.7 g/dL 3.5-5.7 [facility] Alkaline phosphatase [Enzyma tic activity/volume] in Serum or PlasmaOrdered By: Diego Noble on 10-16-2023 ALP [Catalytic activity/Vol] 84 U/L Normal 34-104 [facility] Comment on above: Performed By: #### C UBLD, LACTIC #### [address] Aspartate aminotransferase [ Enzymatic activity/volume] in Serum or PlasmaOrdered By: Diego Noble on 10-16-2023 AST [Catalytic activity/Vol] 14 U/L Normal 13-39 [facility] Comment on above: Performed By: #### C UBLD, LACTIC #### [address] Automated basophil %Ordered By: Diego Noble on 10-16-2023 Basophils/100 WBC (Bld) 2.6 % Normal . [facility] Comment on above: Performed By: #### C UBLD, LACTIC #### [address] Automated basophil countOrde red By: Diego Noble on 10-16-2023 Basophils (Bld) [#/Vol] 0.4 10*3/uL High 0.0-0.2 [facility] Comment on above: Result Comment: PERF ORMED BY: [place] [address] PATHOLOGIST SHEEP SORTER RIDGE HUERTA M.D. Performed By: #### C UBLD, LACTIC #### [facility] [address] Automated blood monocyte cou ntOrdered By: Diego Noble on 10-16-2023 Monocytes (Bld) [#/Vol] 0.9 10*3/uL High 0.0-0.8 [facility] Comment on above: Performed By: #### C UBLD, LACTIC #### [facility] [address] Automated eosinophil %Ordere d By: Diego Noble on 10-16-2023 Eosinophils/100 WBC (Bld) 3.3 % Normal . [facility] Comment on above: Performed By: #### C UBLD, LACTIC #### [address] Automated eosinophil countOr dered By: Diego Noble on 10-16-2023 Eosinophils (Bld) [#/Vol] 0.5 10*3/uL High 0.0-0.45 [facility] Comment on above: Performed By: #### C UBLD, LACTIC #### [address] Automated monocyte %Ordered By: Diego Noble on 10-16-2023 Monocytes/100 WBC (Bld) 6.3 % Normal . [facility] Comment on above: Performed By: #### C UBLD, LACTIC #### [facility] [address] Automated neutrophil %Ordere d By: Diego Noble on 10-16-2023 Neutrophils/100 WBC (Bld) 53.8 % Normal . [facility] Comment on above: Performed By: #### C UBLD, LACTIC #### [address] Bilirubin.total [Mass/volume ] in Serum or PlasmaOrdered By: Diego Noble on 10-16-2023 Bilirubin [Mass/Vol] 0.2 mg/dL Low 0.3-1.0 [facility] Comment on above: Performed By: #### C UBLD, LACTIC #### [address] Blood Cultureon 10-16-2023 Bacteria identified Cx Nom (Bld) NO GROWTH 5 DAYS PERFORMED BY: [place] [address] PATHOLOGIST SHEEP SORTER RIDGE HUERTA M.D. Normal [facility] Comment on above: Performed By: #### C UBLD, LACTIC #### [address] Bacteria identified Cx Nom (Bld) NO GROWTH 5 DAYS PERFORMED BY: [place] [address] PATHOLOGIST SHEEP SORTER RIDGE HUERTA M.D. Normal [facility] Comment on above: Performed By: #### C UBLD, LACTIC #### [address] Calcium [Mass/volume] in Ser um or PlasmaOrdered By: Diego Noble on 10-16-2023 Calcium [Mass/Vol] 9.1 mg/dL Normal 8.6-10.3 [facility] Comment on above: Performed By: #### C UBLD, LACTIC #### [address] Carbon dioxide, total [Moles /volume] in Serum or PlasmaOrdered By: Diego Noble on 10-16-2023 CO2 [Moles/Vol] 25.9 mmol/L Normal 21.0-31.0 [facility] Comment on above: Performed By: #### C UBLD, LACTIC #### [place] [address] [place] Chloride [Moles/volume] in S alissa or PlasmaOrdered By: Diego Noble on 10-16-2023 Chloride [Moles/Vol] 101 mmol/L Normal 98-107 [facility] Comment on above: Performed By: #### C UBLD, LACTIC #### [address] Complete Blood Count Auto Di ffon 10-16-2023 Mean Corpuscular HGB Conc 34.1 g/dL Normal 32.0-35.0 [facility] Comment on above: Performed By: #### C UBLD, LACTIC #### [address] Monocytes/100 WBC (Bld) 20.62 % High 0.00-20.00 [facility] Comment on above: Result Comment: For adults in ED, MDW > 20.0 may be associated with a higher risk of sepsis during the first 12 hrs of hospital admission Performed By: #### C UBLD, LACTIC #### [address] NRBC% 0.1 /100{WBC} Normal 0-0.5 [facility] Comment on above: Performed By: #### C UBLD, LACTIC #### [address] Comprehensive Metabolic Pane rosa 10-16-2023 Albumin [Mass/Vol] 3.7 g/dL Normal 3.5-5.7 [facility] Comment on above: Performed By: #### C UBLD, LACTIC #### [place] [address] [place] Creatinine Clr Calc Pharmacy 134.19 Normal [facility] Comment on above: Result Comment: PERF ORMED BY: [place] [address] PATHOLOGIST SHEEP SORTER RIDGE HUERTA M.D. Performed By: #### C UBLD, LACTIC #### [address] GFR/1.73 sq M.predicted MDRD (S/P/Bld) [Vol rate/Area] mL/min/{1.73_m2} Normal [facility] Comment on above: Performed By: #### C UBLD, LACTIC #### [place] [address] [place] Creatinine [Mass/volume] in Serum or PlasmaOrdered By: Diego Noble on 10-16-2023 Creatinine [Mass/Vol] 0.55 mg/dL Low 0.60-1.20 [facility] Comment on above: Performed By: #### C UBLD, LACTIC #### [facility] [address] Erythrocyte distribution wid th [Ratio] by Automated countOrdered By: Diego Noble on 10-16-2023 Erythrocyte distribution width (RBC) [Ratio] 13.0 % Normal 11.9-15.3 [facility] Comment on above: Performed By: #### C UBLD, LACTIC #### [facility] [address] Erythrocytes [#/volume] in B lood by Automated countOrdered By: Diego Noble on 10-16-2023 RBC (Bld) [#/Vol] 3.84 10*6/uL Normal 3.60-5.00 [facility] Comment on above: Performed By: #### C UBLD, LACTIC #### [facility] [address] Glucose [Mass/volume] in Ser um or PlasmaOrdered By: Diego Noble on 10-16-2023 Glucose [Mass/Vol] 197 mg/dL High 70-100 [facility] Comment on above: ADA recommended refe rence rangeRandom Glucose Reference Range is dependent on time and content of last meal. Glucose of more than 200 mg/dL in a nonstressed, ambulatory subject supports the diagnosis of Diabetes Mellitus. Result Comment: [place] Glucose Reference Range is dependent on time and content of last meal. Glucose of more than 200 mg/dL in a nonstressed, ambulatory subject supports the diagnosis of Diabetes Mellitus. ADA recommended reference range Performed By: #### C UBLD, LACTIC #### [facility] [address] Hematocrit [Volume Fraction] of Blood by Automated countOrdered By: Diego Noble on 10-16-2023 Hematocrit (Bld) [Volume fraction] 34.0 % Normal 34.0-46.4 [facility] Comment on above: Performed By: #### C UBLD, LACTIC #### [facility] [address] Hemoglobin [Mass/volume] in BloodOrdered By: Diego Noble on 10-16-2023 Hemoglobin (Bld) [Mass/Vol] 11.6 g/dL Low 11.8-15.4 [facility] Comment on above: Performed By: #### C UBLD, LACTIC #### [address] INR in Platelet poor plasma by Coagulation assayOrdered By: Diego Noble on 10-16-2023 INR Coag (PPP) [Relative time] 0.9 {INR} Normal [facility] Comment on above: INR Therapeutic [...] 3 - 4.5 Performed By: #### C UBLD, LACTIC #### [address] Lactate [Moles/volume] in Se rum or PlasmaOrdered By: Diego Noble on 10-16-2023 Lactate [Moles/Vol] 2.1 mmol/L Off scale high 0.5-2.2 [facility] Comment on above: Critical Result : Ca lled to and read back by: MACO BECK at: 10/16/2023 12:33:20 by:ECTOR Result Comment: Crit ical Result : Called to and read back by: MACO BECK at: 10/16/2023 12:33:20 by:ECTOR PERFORMED BY: [place] [address] PATHOLOGIST SHEEP SORTER RIDGE HUERTA M.D. Performed By: #### C UBLD, LACTIC #### [address] Leukocytes [#/volume] correc cherie for nucleated erythrocytes in Blood by Automated counOrdered By: Diego Noble on 10-16-2023 WBC corrected for nucl RBC Auto (Bld) [#/Vol] 14.3 10*3/uL 3.8-11.6 [facility] Leukocytes [#/volume] in Blo od by Automated countOrdered By: Diego Noble on 10-16-2023 WBC (Bld) [#/Vol] 14.3 10*3/uL High 3.8-11.6 [facility] Comment on above: Performed By: #### C UBLD, LACTIC #### [address] Lymphocytes [#/volume] in Bl ood by Automated countOrdered By: Diego Noble on 10-16-2023 Lymphocytes (Bld) [#/Vol] 4.9 10*3/uL High 1.00-4.8 [facility] Comment on above: Performed By: #### C UBLD, LACTIC #### [address] Lymphocytes/100 leukocytes i n Blood by Automated countOrdered By: Diego Noble on 10-16-2023 Lymphocytes/100 WBC (Bld) 34.0 % Normal . [facility] Comment on above: Performed By: #### C UBLD, LACTIC #### [address] MCH [Entitic mass] by Automa cherie countOrdered By: Diego Noble on 10-16-2023 MCH (RBC) [Entitic mass] 30.3 pg Normal 24.7-34.3 [facility] Comment on above: Performed By: #### C UBLD, LACTIC #### [address] MCHC Auto (RBC) [Mass/Vol]Or dered By: Diego Noble on 10-16-2023 MCHC (RBC) [Mass/Vol] 34.1 g/dL 32.0-35.0 [facility] MCV [Entitic volume] by Auto mated countOrdered By: Diego Noble on 10-16-2023 MCV (RBC) [Entitic vol] 88.7 fL Normal 80-100 [facility] Comment on above: Performed By: #### C UBLD, LACTIC #### [facility] [address] Monocyte distribution width [Entitic volume] in Blood by AutomatedOrdered By: Diego Noble on 10-16-2023 Monocyte distribution width Auto (Bld) [Entitic vol] 20.62 % 0.00-20.00 [facility] Comment on above: For adults in ED, MD W > 20.0 may be associated with a higher risk of sepsis during the first 12 hrs of hospital admission Neutrophils [#/volume] in Bl ood by Automated countOrdered By: Diego Noble on 10-16-2023 Neutrophils (Bld) [#/Vol] 7.7 10*3/uL Normal 1.8-7.7 [facility] Comment on above: Performed By: #### C UBLD, LACTIC #### [facility] [address] No Panel InformationOrdered By: Diego Noble on 10-16-2023 Estimated GFR (CKD-EPI) > 60.0 mL/Min [facility] Creatinine Clearance (Chem 134.19 [facility] Nucleated erythrocytes [Pres ence] in Blood by Automated countOrdered By: Diego Noble on 10-16-2023 Nucleated RBC Auto Ql (Bld) 0.1 /100{WBC} 0-0.5 [facility] Partial Thromboplastin Timeo n 10-16-2023 aPTT Coag (Bld) [Time] 28.2 s Normal 25.1-36.5 [facility] Comment on above: Result Comment: A he matocrit value greater than 55% may lead to inaccurate results in coagulation testing. Patients having hematocrit values >55% require a special collection tube for coagulation studies. Please contact the laboratory at [phone] for redraw instructions. PERFORMED BY: [facility] [address] [place] [address] PATHOLOGIST SHEEP SORTER RIDGE HUERTA M.D. Performed By: #### C UBLD, LACTIC #### [facility] [address] [place] [address] [place] Platelet mean volume [Entiti c volume] in Blood by Automated countOrdered By: Diego Noble on 10-16-2023 Platelet mean volume (Bld) [Entitic vol] 6.7 fL Normal 6.3-10.7 [facility] Comment on above: Performed By: #### C UBLD, LACTIC #### [facility] [address] [place] [address] [place] Platelets [#/volume] in Bloo d by Automated countOrdered By: Diego Noble on 10-16-2023 Platelets (Bld) [#/Vol] 454 10*3/uL High 150-450 [facility] Comment on above: Performed By: #### C UBLD, LACTIC #### [place] [address] [place] Potassium [Moles/volume] in Serum or PlasmaOrdered By: Diego Noble on 10-16-2023 Potassium [Moles/Vol] 4.3 mmol/L Normal 3.5-5.1 [facility] Comment on above: Performed By: #### C UBLD, LACTIC #### [place] [address] [place] Protein [Mass/volume] in Ser um or PlasmaOrdered By: Diego Noble on 10-16-2023 Protein [Mass/Vol] 6.3 g/dL Low 6.4-8.9 [facility] Comment on above: Performed By: #### C UBLD, LACTIC #### [place] [address] [place] Prothrombin time (PT)Ordered By: Diego Noble on 10-16-2023 PT Coag (PPP) [Time] 9.9 s Normal 9.0-12.9 [facility] Comment on above: A hematocrit value g reater than 55% may lead to inaccurate results in coagulation testing. Patients having hematocrit values >55% require a special collection tube for coagulation studies. Please contact the laboratory at [phone] for redraw instructions. Result Comment: A he matocrit value greater than 55% may lead to inaccurate results in coagulation testing. Patients having hematocrit values >55% require a special collection tube for coagulation studies. Please contact the laboratory at [phone] for redraw instructions. Performed By: #### C UBLD, LACTIC #### [address] Serum globulin measurement b y calculation (mass/volume)Ordered By: Diego Noble on 10-16-2023 Globulin (S) [Mass/Vol] 2.6 g/dL Normal [facility] Comment on above: Performed By: #### C UBLD, LACTIC #### [address] Serum or plasma albumin/glob ulin mass ratioOrdered By: Diego Noble on 10-16-2023 Albumin/Globulin [Mass ratio] 1.4 {ratio} Normal [facility] Comment on above: Performed By: #### C UBLD, LACTIC #### [address] Serum or plasma anion gap de terminationOrdered By: Diego Noble on 10-16-2023 Anion gap [Moles/Vol] 14.4 mmol/L Normal 6.0-15.0 [facility] Comment on above: Performed By: #### C UBLD, LACTIC #### [address] Sodium [Moles/volume] in Ser um or PlasmaOrdered By: Diego Noble on 10-16-2023 Sodium [Moles/Vol] 137 mmol/L Normal 136-145 [facility] Comment on above: Performed By: #### C UBLD, LACTIC #### [address] Urea nitrogen [Mass/volume] in Serum or PlasmaOrdered By: Diego Noble on 10-16-2023 Urea nitrogen [Mass/Vol] 12 mg/dL Normal 7-25 [facility] Comment on above: Performed By: #### C UBLD, LACTIC #### [address] Automated basophil %Ordered By: Ilene Lopez on 10-09-2023 Basophils/100 WBC (Bld) 0.4 % Normal . [facility] Comment on above: Performed By: #### C UBLD, LACTIC #### [address] Automated basophil countOrde red By: Ilene Lopez on 10-09-2023 Basophils (Bld) [#/Vol] 0.1 10*3/uL Normal 0.0-0.2 [facility] Comment on above: Result Comment: PERF ORMED BY: [place] [address] PATHOLOGIST SHEEP SORTER RIDGE HUERTA M.D. Performed By: #### C UBLD, LACTIC #### [address] Automated blood monocyte cou ntOrdered By: Ilene Lopez on 10-09-2023 Monocytes (Bld) [#/Vol] 1.3 10*3/uL High 0.0-0.8 [facility] Comment on above: Performed By: #### C UBLD, LACTIC #### [address] Automated eosinophil %Ordere d By: Ilene Lopez on 10-09-2023 Eosinophils/100 WBC (Bld) 3.5 % Normal . [facility] Comment on above: Performed By: #### C UBLD, LACTIC #### [address] Automated eosinophil countOr dered By: Ilene Lopez on 10-09-2023 Eosinophils (Bld) [#/Vol] 0.5 10*3/uL High 0.0-0.45 [facility] Comment on above: Performed By: #### C UBLD, LACTIC #### [address] Automated monocyte %Ordered By: Ilene Lopez on 10-09-2023 Monocytes/100 WBC (Bld) 9.5 % Normal . [facility] Comment on above: Performed By: #### C UBLD, LACTIC #### [address] Automated neutrophil %Ordere d By: Ilene Lopez on 10-09-2023 Neutrophils/100 WBC (Bld) 70.1 % Normal . [facility] Comment on above: Performed By: #### C UBLD, LACTIC #### [address] Basic Metabolic Panelon Creatinine Clr Calc Pharmacy 153.15 Normal [facility] Comment on above: Result Comment: PERF ORMED BY: [place] [address] PATHOLOGIST SHEEP SORTER RIDGE HUERTA M.D. Performed By: #### C UBLD, LACTIC #### [address] GFR/1.73 sq M.predicted MDRD (S/P/Bld) [Vol rate/Area] mL/min/{1.73_m2} Normal [facility] Comment on above: Performed By: #### C UBLD, LACTIC #### [address] Calcium [Mass/volume] in Ser um or PlasmaOrdered By: Ilene Lopez on 10-09-2023 Calcium [Mass/Vol] 7.9 mg/dL Low 8.6-10.3 [facility] Comment on above: Performed By: #### C UBLD, LACTIC #### [address] Capillary blood glucose ashwini urement by glucometer (mass/volume)Ordered By: Salazar Cabrera on 10-09-2023 Glucose [Mass/Vol] 299 mg/dL Normal [facility] Comment on above: Random Glucose Refer ence Range is dependent on time and content of last meal. Glucose of more than 200 mg/dL in a nonstressed, ambulatory subject supports the diagnosis of Diabetes Mellitus. Result Comment: [facility] Glucose Reference Range is dependent on time and content of last meal. Glucose of more than 200 mg/dL in a nonstressed, ambulatory subject supports the diagnosis of Diabetes Mellitus. Performed By: #### U HCG #### [address] Carbon dioxide, total [Moles /volume] in Serum or PlasmaOrdered By: Ilene Lopez on 10-09-2023 CO2 [Moles/Vol] 22.6 mmol/L Normal 21.0-31.0 [facility] Comment on above: Performed By: #### C UBLD, LACTIC #### [address] Chloride [Moles/volume] in S alissa or PlasmaOrdered By: Ilene Lopez on 10-09-2023 Chloride [Moles/Vol] 105 mmol/L Normal 98-107 [facility] Comment on above: Performed By: #### C UBLD, LACTIC #### [address] Clostridioides difficile tox in B tcdB gene [Presence] in Stool by NAYELY with probe deteOrdered By: BONG Velez on 10-09-2023 C. difficile toxin B tcdB gene NAYELY+probe Ql (Stl) Positive Negative [facility] Comment on above: Results calledat 161 9 on 10/09/23 Testing performed by RT-PCR Clostridium Difficileon Clostridium Difficile Positive Normal Negative [facility] Comment on above: Order Comment: > or = to 3 loose/watery stools in the last 24 HRS? Y Is patient on promotility agents or tube feeding? N Result Comment: Resu lts called at 1619 on 10/09/23 Testing performed by RT-PCR PERFORMED BY: [place] [address] PATHOLOGIST SHEEP SORTER RIDGE HUERTA M.D. Performed By: #### C UBLD, LACTIC #### [address] Complete Blood Count Auto Di ffon 10-09-2023 Mean Corpuscular HGB Conc 34.0 g/dL Normal 32.0-35.0 [facility] Comment on above: Performed By: #### C UBLD, LACTIC #### [address] NRBC% 0.1 /100{WBC} Normal 0-0.5 [facility] Comment on above: Performed By: #### C UBLD, LACTIC #### [address] Creatinine [Mass/volume] in Serum or PlasmaOrdered By: Ilene Lopez on 10-09-2023 Creatinine [Mass/Vol] 0.48 mg/dL Low 0.60-1.20 [facility] Comment on above: Performed By: #### C UBLD, LACTIC #### [address] Erythrocyte distribution wid th [Ratio] by Automated countOrdered By: Ilene Lopez on 10-09-2023 Erythrocyte distribution width (RBC) [Ratio] 13.2 % Normal 11.9-15.3 [facility] [facility] Comment on above: Performed By: #### C UBLD, LACTIC #### [address] Erythrocytes [#/volume] in B lood by Automated countOrdered By: Ilene Calderon on 10-09-2023 RBC (Bld) [#/Vol] 3.44 10*6/uL Low 3.60-5.00 [facility] Comment on above: Performed By: #### C UBLD, LACTIC #### [address] Glucose Poct Glucometerson 0 10-09-2023 Commemt1 Glu2: Cleaned Meter Normal [facility] Comment on above: Result Comment: PERF ORMED BY: [place] [address] PATHOLOGIST SHEEP SORTER RIDGE HUERTA M.D. Performed By: #### U HCG #### [address] Commemt1 Glu2: Cleaned Meter Normal [facility] Comment on above: Result Comment: PERF ORMED BY: [place] [address] PATHOLOGIST SHEEP SORTER RIDGE HUERTA M.D. Performed By: #### C UBLD, LACTIC #### [place] [address] [place] Glucose [Mass/Vol] 188 mg/dL Normal [facility] Comment on above: Result Comment: [place] om Glucose Reference Range is dependent on time and content of last meal. Glucose of more than 200 mg/dL in a nonstressed, ambulatory subject supports the diagnosis of Diabetes Mellitus. Performed By: #### C UBLD, LACTIC #### [place] [address] [place] Glucose [Mass/volume] in Ser um or PlasmaOrdered By: Ilene Lopez on 10-09-2023 Glucose [Mass/Vol] 143 mg/dL High 70-100 [facility] Comment on above: ADA recommended refe rence rangeRandom Glucose Reference Range is dependent on time and content of last meal. Glucose of more than 200 mg/dL in a nonstressed, ambulatory subject supports the diagnosis of Diabetes Mellitus. Result Comment: [place] om Glucose Reference Range is dependent on time and content of last meal. Glucose of more than 200 mg/dL in a nonstressed, ambulatory subject supports the diagnosis of Diabetes Mellitus. ADA recommended reference range Performed By: #### C UBLD, LACTIC #### [place] [address] [place] Hematocrit [Volume Fraction] of Blood by Automated countOrdered By: Ilene Lopez on 10-09-2023 Hematocrit (Bld) [Volume fraction] 30.3 % Low 34.0-46.4 [facility] Comment on above: Performed By: #### C UBLD, LACTIC #### [place] [address] [place] Hemoglobin [Mass/volume] in BloodOrdered By: Ilene Lopez on 10-09-2023 Hemoglobin (Bld) [Mass/Vol] 10.3 g/dL Low 11.8-15.4 [facility] Comment on above: Performed By: #### C UBLD, LACTIC #### [facility] [address] Leukocytes [#/volume] correc cherie for nucleated erythrocytes in Blood by Automated counOrdered By: Ilene Lopez on 10-09-2023 WBC corrected for nucl RBC Auto (Bld) [#/Vol] 13.6 10*3/uL 3.8-11.6 [facility] Leukocytes [#/volume] in Blo od by Automated countOrdered By: Ilene Calderon on 10-09-2023 WBC (Bld) [#/Vol] 13.6 10*3/uL High 3.8-11.6 [facility] Comment on above: Performed By: #### C UBLD, LACTIC #### [facility] [address] [place] [address] [place] Lymphocytes [#/volume] in Bl ood by Automated countOrdered By: Ilene Calderon on 10-09-2023 Lymphocytes (Bld) [#/Vol] 2.2 10*3/uL Normal 1.00-4.8 [facility] Comment on above: Performed By: #### C UBLD, LACTIC #### [address] Lymphocytes/100 leukocytes i n Blood by Automated countOrdered By: Ilene Lopez on 10-09-2023 Lymphocytes/100 WBC (Bld) 16.5 % Normal . [facility] Comment on above: Performed By: #### C UBLD, LACTIC #### [facility] [address] [place] [address] [place] MCH [Entitic mass] by Automa cherie countOrdered By: Ilene Lopez on 10-09-2023 MCH (RBC) [Entitic mass] 29.9 pg Normal 24.7-34.3 [facility] Comment on above: Performed By: #### C UBLD, LACTIC #### [facility] [address] MCHC Auto (RBC) [Mass/Vol]Or dered By: Ilene Lopez on 10-09-2023 MCHC (RBC) [Mass/Vol] 34.0 g/dL 32.0-35.0 [facility] MCV [Entitic volume] by Auto mated countOrdered By: Ilene Lopez on 10-09-2023 MCV (RBC) [Entitic vol] 88.1 fL Normal 80-100 [facility] Comment on above: Performed By: #### C UBLD, LACTIC #### [facility] [address] [place] [address] Neutrophils [#/volume] in Bl ood by Automated countOrdered By: Ilene Calderon on 10-09-2023 Neutrophils (Bld) [#/Vol] 9.6 10*3/uL High 1.8-7.7 [facility] Comment on above: Performed By: #### C UBLD, LACTIC #### [facility] [address] [place] [address] No Panel InformationOrdered By: Salazar Cabrera on 10-09-2023 Bedside Glucose Comment Glu2: cleaned meter [facility] No Panel InformationOrdered By: Ilene Lopez on 10-09-2023 Estimated GFR (CKD-EPI) > 60.0 mL/Min [facility] Creatinine Clearance (Chem 153.15 [facility] Nucleated erythrocytes [Pres ence] in Blood by Automated countOrdered By: Ilene Lopez on 10-09-2023 Nucleated RBC Auto Ql (Bld) 0.1 /100{WBC} 0-0.5 [facility] Platelet mean volume [Entiti c volume] in Blood by Automated countOrdered By: Ilene Lopez on 10-09-2023 Platelet mean volume (Bld) [Entitic vol] 7.9 fL Normal 6.3-10.7 [facility] Comment on above: Performed By: #### C UBLD, LACTIC #### [facility] [address] [place] [address] Platelets [#/volume] in Bloo d by Automated countOrdered By: Ilene Lopez on 10-09-2023 Platelets (Bld) [#/Vol] 242 10*3/uL Normal 150-450 [facility] Comment on above: Performed By: #### C UBLD, LACTIC #### [address] Potassium [Moles/volume] in Serum or PlasmaOrdered By: Ilene Lopez on 10-09-2023 Potassium [Moles/Vol] 3.4 mmol/L Low 3.5-5.1 [facility] Comment on above: Performed By: #### C UBSOLIS, LACTIC #### [address] Serum or plasma anion gap de terminationOrdered By: Ilene Lopez on 10-09-2023 Anion gap [Moles/Vol] 11.8 mmol/L Normal 6.0-15.0 [facility] Comment on above: Performed By: #### C UBSOLIS, LACTIC #### [address] Sodium [Moles/volume] in Ser um or PlasmaOrdered By: Ilene Lopez on 10-09-2023 Sodium [Moles/Vol] 136 mmol/L Normal 136-145 [facility] Comment on above: Performed By: #### C UBSOLIS, LACTIC #### [address] Stool Cultureon 10-09-2023 Stool culture Comment c. diff Negative for Shiga Toxin 1 Negative for Shiga Toxin 2 A negative Shiga Toxin result may occur if the antigen level in the specimen is below the detection limit of the assay. Stool culture results No Salmonella, Shigella, Campy or E. coli 0157:H7 Isolated PERFORMED BY: [place] [address] PATHOLOGIST SHEEP SORTER RIDGE HUERTA M.D. Normal [facility] Comment on above: Performed By: #### C USTOOL ####[facility] [id number] Stool bacteria identificatio n by cultureOrdered By: BONG Velez on 10-09-2023 Bacteria identified Cx Nom (Stl) [facility] Urea nitrogen [Mass/volume] in Serum or PlasmaOrdered By: Ilene Lopez on 10-09-2023 Urea nitrogen [Mass/Vol] 6 mg/dL Low 7-25 [facility] Comment on above: Performed By: #### C UBLD, LACTIC #### [facility] [address] [place] [address] Alanine aminotransferase [En zymatic activity/volume] in Serum or PlasmaOrdered By: BONG Velez on 10-08-2023 ALT [Catalytic activity/Vol] 31 U/L Normal 7-52 [facility] Comment on above: Performed By: #### U HCG #### [facility] [address] [place] [address] [place] Albumin [Mass/volume] in Ser um or Plasma by Bromocresol green (BCG) dye binding methoOrdered By: BONG Velez on 10-08-2023 Albumin BCG dye [Mass/Vol] 3.7 g/dL 3.5-5.7 [facility] Alkaline phosphatase [Enzyma tic activity/volume] in Serum or PlasmaOrdered By: BONG Velez on 10-08-2023 ALP [Catalytic activity/Vol] 61 U/L Normal 34-104 [facility] Comment on above: Performed By: #### U HCG #### [facility] [address] [place] [address] [place] Aspartate aminotransferase [ Enzymatic activity/volume] in Serum or PlasmaOrdered By: BONG Velez on 10-08-2023 AST [Catalytic activity/Vol] 40 U/L High 13-39 [facility] Comment on above: Performed By: #### U HCG #### [address] Automated erythrocytes count in urine sediment (number/area)Ordered By: BONG Velez on 10-08-2023 RBC Auto (Urine sed) [#/Area] 5-9 [HPF] 0-4 [facility] Automated leukocytes count i n urine sediment (number/area)Ordered By: BONG Velez on 10-08-2023 WBC Auto (Urine sed) [#/Area] 3-4 [HPF] 0-4 [facility] Automated urine color determ inationOrdered By: BONG Velez on 10-08-2023 Color (U) [place] Critically abnormal Yellow [facility] Comment on above: Order Comment: Name Collection Type:: Martinez Catheter Performed By: #### A DDONUAPLUS #### [address] Automated urine hyaline cast s count (number/volume)Ordered By: BONG Velez on 10-08-2023 Hyaline casts Auto (U) [#/Vol] None seen [LPF] 0-1 [facility] Bilirubin Test strip Ql (U)O rdered By: BONG Velez on 10-08-2023 Bilirubin Ql (U) 1+ Negative [facility] Bilirubin.total [Mass/volume ] in Serum or PlasmaOrdered By: BONG Velez on 10-08-2023 Bilirubin [Mass/Vol] 0.6 mg/dL Normal 0.3-1.0 [facility] Comment on above: Performed By: #### U HCG #### [address] abdomen pelvis w conon CT abdomen pelvis w con [facility] [place] [address] [place] [address] CT Scan Report Signed Patient: Rachel Mcgarry MR#: [id number] 1 : 1980 Acct:[id number] Age/Sex: 43 / F ADM Date: 10/07/23 Loc: Room: 7G9840-8 Type: ADM IN Attending Dr: Beltran Velez MD Copies to: BONG Motley Ordering Provider: BONG Motley Date of Service: 10/08/23 CT/CT abdomen pelvis w con: Abdominal pain/distended abdomen CT abdomen and pelvis with contrast CLINICAL DATA: Abdominal pain, distention and vomiting. Recent hysterectomy. COMPARISON: 10/07/[address] [facility]. No report is available at [...] Eda Yañez M.D.10/08/2023 12:09 PM Dictation Location: [place] [address] Transcribed By: PWS 10/08/23 1209 Dictated By: Eda Yañez MD 10/08/23 1142 Signed By: 10/08/23 1209 Normal [facility] Casts typing in urine sedime nt by light microscopyOrdered By: BONG Velez on 10-08-2023 Casts LM Nom (Urine sed) None seen [LPF] None Seen [facility] Complete Blood Count Auto Di ffon 10-08-2023 Basophils (Bld) [#/Vol] 0.1 10*3/uL Normal 0.0-0.2 [facility] Comment on above: Result Comment: PERF ORMED BY: [place] [address] PATHOLOGIST SHEEP SORTER RIDGE HUERTA M.D. Performed By: #### U HCG #### [address] Basophils/100 WBC (Bld) 0.5 % Normal . T gavin [facility] Comment on above: Performed By: #### U HCG #### [place] [address] [place] Eosinophils (Bld) [#/Vol] 0.2 10*3/uL Normal 0.0-0.45 [facility] Comment on above: Performed By: #### U HCG #### [address] Eosinophils/100 WBC (Bld) 1.3 % Normal . [facility] Comment on above: Performed By: #### U HCG #### [address] Erythrocyte distribution width (RBC) [Ratio] 13.2 % Normal 11.9-15.3 [facility] Comment on above: Performed By: #### U HCG #### [address] Hematocrit (Bld) [Volume fraction] 35.9 % Normal 34.0-46.4 [facility] Comment on above: Performed By: #### U HCG #### [place] [address] [place] Hemoglobin (Bld) [Mass/Vol] 12.1 g/dL Normal 11.8-15.4 [facility] Comment on above: Performed By: #### U HCG #### [address] Lymphocytes (Bld) [#/Vol] 3.0 10*3/uL Normal 1.00-4.8 [facility] Comment on above: Performed By: #### U HCG #### [address] Lymphocytes/100 WBC (Bld) 16.8 % Normal . [facility] Comment on above: Performed By: #### U HCG #### [address] MCH (RBC) [Entitic mass] 29.7 pg Normal 24.7-34.3 [facility] Comment on above: Performed By: #### U HCG #### [address] MCV (RBC) [Entitic vol] 88.3 fL Normal 80-100 [facility] Comment on above: Performed By: #### U HCG #### [address] Mean Corpuscular HGB Conc 33.6 g/dL Normal 32.0-35.0 [facility] Comment on above: Performed By: #### U HCG #### [address] Monocytes (Bld) [#/Vol] 1.5 10*3/uL High 0.0-0.8 [facility] Comment on above: Performed By: #### U HCG #### [address] Monocytes/100 WBC (Bld) 8.4 % Normal . [facility] Comment on above: Performed By: #### U HCG #### [address] Neutrophils (Bld) [#/Vol] 12.9 10*3/uL High 1.8-7.7 [facility] Comment on above: Performed By: #### U HCG #### [address] Neutrophils/100 WBC (Bld) 73.0 % Normal . [facility] Comment on above: Performed By: #### U HCG #### [address] NRBC% 0.1 /100{WBC} Normal 0-0.5 [facility] Comment on above: Performed By: #### U HCG #### [address] Platelet mean volume (Bld) [Entitic vol] 7.9 fL Normal 6.3-10.7 [facility] Comment on above: Performed By: #### U HCG #### [address] Platelets (Bld) [#/Vol] 274 10*3/uL Normal 150-450 [facility] Comment on above: Performed By: #### U HCG #### [address] RBC (Bld) [#/Vol] 4.06 10*6/uL Normal 3.60-5.00 [facility] Comment on above: Performed By: #### U HCG #### [address] WBC (Bld) [#/Vol] 17.6 10*3/uL High 3.8-11.6 [facility] Comment on above: Performed By: #### U HCG #### [address] Comprehensive Metabolic Pane rosa 10-08-2023 Albumin [Mass/Vol] 3.7 g/dL Normal 3.5-5.7 [facility] Comment on above: Performed By: #### U HCG #### [address] Anion gap [Moles/Vol] 14.8 mmol/L Normal 6.0-15.0 [facility] Comment on above: Performed By: #### U HCG #### [place] [address] [place] Calcium [Mass/Vol] 7.8 mg/dL Low 8.6-10.3 [facility] Comment on above: Performed By: #### U HCG #### [place] [address] [place] Chloride [Moles/Vol] 104 mmol/L Normal 98-107 [facility] Comment on above: Performed By: #### U HCG #### [place] [address] [place] CO2 [Moles/Vol] 20.2 mmol/L Low 21.0-31.0 [facility] Comment on above: Performed By: #### U HCG #### [place] [address] [place] Creatinine [Mass/Vol] 0.58 mg/dL Low 0.60-1.20 [facility] Comment on above: Performed By: #### U HCG #### [place] [address] [place] Creatinine Clr Calc Pharmacy 126.74 Normal [facility] Comment on above: Result Comment: PERF ORMED BY: [place] [address] PATHOLOGIST SHEEP SORTER RIDGE HUERTA M.D. Performed By: #### U HCG #### [place] [address] [place] GFR/1.73 sq M.predicted MDRD (S/P/Bld) [Vol rate/Area] mL/min/{1.73_m2} Normal [facility] Comment on above: Performed By: #### U HCG #### [place] [address] [place] Glucose [Mass/Vol] 155 mg/dL High 70-100 [facility] Comment on above: Result Comment: [place] om Glucose Reference Range is dependent on time and content of last meal. Glucose of more than 200 mg/dL in a nonstressed, ambulatory subject supports the diagnosis of Diabetes Mellitus. ADA recommended reference range Performed By: #### U HCG #### [address] Potassium [Moles/Vol] 4.0 mmol/L Normal 3.5-5.1 [facility] Comment on above: Performed By: #### U HCG #### [address] Sodium [Moles/Vol] 135 mmol/L Low 136-145 [facility] Comment on above: Performed By: #### U HCG #### [address] Urea nitrogen [Mass/Vol] 10 mg/dL Normal 7-25 [facility] Comment on above: Performed By: #### U HCG #### [address] Albumin [Mass/Vol] 3.7 g/dL Normal 3.5-5.7 [facility] Comment on above: Performed By: #### C MP, LACTIC ####[address] Albumin/Globulin [Mass ratio] 1.5 {ratio} Normal [facility] Comment on above: Performed By: #### C MP, LACTIC ####[place] [id number] [facility] ALP [Catalytic activity/Vol] 62 U/L Normal 34-104 [facility] Comment on above: Performed By: #### C MP, LACTIC ####[place] [id number] [facility] ALT [Catalytic activity/Vol] 34 U/L Normal 7-52 [facility] Comment on above: Performed By: #### C MP, LACTIC ####[place] [id number] [facility] Anion gap [Moles/Vol] 14.3 mmol/L Normal 6.0-15.0 [facility] Comment on above: Performed By: #### C MP, LACTIC ####[place] [id number] [place] AST [Catalytic activity/Vol] 74 U/L High 13-39 [facility] Comment on above: Performed By: #### C MP, LACTIC ####[address] Bilirubin [Mass/Vol] 0.5 mg/dL Normal 0.3-1.0 [facility] Comment on above: Performed By: #### C MP, LACTIC ####[address] Calcium [Mass/Vol] 7.9 mg/dL Low 8.6-10.3 [facility] Comment on above: Performed By: #### C MP, LACTIC ####[address] Chloride [Moles/Vol] 102 mmol/L Normal 98-107 [facility] Comment on above: Performed By: #### C MP, LACTIC ####[address] CO2 [Moles/Vol] 21.0 mmol/L Normal 21.0-31.0 [facility] Comment on above: Performed By: #### C MP, LACTIC ####[address] Creatinine [Mass/Vol] 0.56 mg/dL Low 0.60-1.20 [facility] Comment on above: Performed By: #### C MP, LACTIC ####[address] Creatinine Clr Calc Pharmacy 131.27 Normal [facility] Comment on above: Result Comment: PERF ORMED BY: [facility] [address] [place] [address] PATHOLOGIST SHEEP SORTER RIDGE HUERTA M.D. Performed By: #### C MP, LACTIC ####[address] GFR/1.73 sq M.predicted MDRD (S/P/Bld) [Vol rate/Area] mL/min/{1.73_m2} Normal [facility] Comment on above: Performed By: #### C MP, LACTIC ####[place] [id number] [address] Globulin (S) [Mass/Vol] 2.4 g/dL Normal T [facility] Comment on above: Performed By: #### C MP, LACTIC ####[place] [id number] [address] Glucose [Mass/Vol] 208 mg/dL High 70-100 [facility] Comment on above: Result Comment: [place] Glucose Reference Range is dependent on time and content of last meal. Glucose of more than 200 mg/dL in a nonstressed, ambulatory subject supports the diagnosis of Diabetes Mellitus. ADA recommended reference range Performed By: #### C MP, LACTIC ####[place] [id number] [address] Potassium [Moles/Vol] 4.3 mmol/L Normal 3.5-5.1 [facility] Comment on above: Performed By: #### C MP, LACTIC ####[address] Protein [Mass/Vol] 6.1 g/dL Low 6.4-8.9 [facility] Comment on above: Performed By: #### C MP, LACTIC ####[address] Sodium [Moles/Vol] 133 mmol/L Low 136-145 [facility] Comment on above: Performed By: #### C MP, LACTIC ####[address] Urea nitrogen [Mass/Vol] 9 mg/dL Normal 7-25 [facility] Comment on above: Performed By: #### C MP, LACTIC ####[place] [address] [place] Dipstick and Microscopicon 0 10-08-2023 Appearance (U) Turbid Critically abnormal Clear [facility] Comment on above: Order Comment: Name Collection Type:: Martinez Catheter Performed By: #### A DDONUAPLUS #### [place] [address] [place] Bacteria,Urine None Seen Normal None Seen [facility] Comment on above: Order Comment: Name Collection Type:: Martinez Catheter Performed By: #### A DDONUAPLUS #### [place] [address] [place] Bilirubin,Urine 1+ High Negative [facility] Comment on above: Order Comment: Name Collection Type:: Martinez Catheter Performed By: #### A DDONUAPLUS #### [address] Glucose Ql (U) 250 mg/dL High Normal [facility] Comment on above: Order Comment: Name Collection Type:: Martinez Catheter Performed By: #### A DDONUAPLUS #### [place] [address] [place] Hyaline Casts,Urine None Seen Normal 0-1 [facility] Comment on above: Order Comment: Name Collection Type:: Martinez Catheter Performed By: #### A DDONUAPLUS #### [place] [address] [place] Ketones Ql (U) Trace High Negative [facility] Comment on above: Order Comment: Name Collection Type:: Martinez Catheter Performed By: #### A DDONUAPLUS #### [address] Leukocyte esterase Test strip Ql (U) Negative Normal Negative [facility] Comment on above: Order Comment: Name Collection Type:: Martinez Catheter Performed By: #### A DDONUAPLUS #### [place] [address] [place] Nitrite,Urine Negative Normal Negative [facility] Comment on above: Order Comment: Name Collection Type:: Martinez Catheter Performed By: #### A DDONUAPLUS #### [place] [address] [place] Occult Blood,Urine Negative Normal Negative [facility] Comment on above: Order Comment: Name Collection Type:: Martinez Catheter Result Comment: PERF ORMED BY: [place] [address] PATHOLOGIST SHEEP SORTER RIDGE HUERTA M.D. Performed By: #### A DDONUAPLUS #### [address] Other Casts,Urine None Seen Normal None Seen [facility] Comment on above: Order Comment: Name Collection Type:: Martinez Catheter Result Comment: PERF ORMED BY: [place] [address] PATHOLOGIST SHEEP SORTER RIDGE HUERTA M.D. Performed By: #### A DDONUAPLUS #### [address] RBC,Urine 5-9 High 0-4 [facility] Comment on above: Order Comment: Name Collection Type:: Martinez Catheter Performed By: #### A DDONUAPLUS #### [address] Specificy [place],Urine > 1.050 High 1.00 1-1.03 0 [facility] Comment on above: Order Comment: Name Collection Type:: Martinez Catheter Performed By: #### A DDONUAPLUS #### [place] [address] [place] Squamous Epithelial Cell,Urine 5-9 High 0-2 [facility] Comment on above: Order Comment: Name Collection Type:: Martinez Catheter Performed By: #### A DDONUAPLUS #### [address] Urobilinogen,Urine Normal Normal Normal [facility] Comment on above: Order Comment: Name Collection Type:: Martinez Catheter Performed By: #### A DDONUAPLUS #### [place] [address] [place] WBC,Urine 3-4 Normal 0-4 [facility] Comment on above: Order Comment: Name Collection Type:: Martinez Catheter Performed By: #### A DDONUAPLUS #### [address] Glucose Poct Glucometerson 0 10-08-2023 Glucose [Mass/Vol] 194 mg/dL Normal [facility] Comment on above: Result Comment: [place] om Glucose Reference Range is dependent on time and content of last meal. Glucose of more than 200 mg/dL in a nonstressed, ambulatory subject supports the diagnosis of Diabetes Mellitus. PERFORMED BY: CLEAR [place] [address] PATHOLOGIST SHEEP SORTER RIDGE HUERTA M.D. Performed By: #### C UBLD, LACTIC #### [address] Commemt1 Glu2: Cleaned Meter Normal [facility] Comment on above: Result Comment: PERF ORMED BY: [place] [address] PATHOLOGIST SHEEP SORTER RIDGE HUERTA M.D. Performed By: #### G LULS #### Point of Care testing , Glucose [Mass/Vol] 265 mg/dL Normal [facility] Comment on above: Result Comment: [place] om Glucose Reference Range is dependent on time and content of last meal. Glucose of more than 200 mg/dL in a nonstressed, ambulatory subject supports the diagnosis of Diabetes Mellitus. Performed By: #### G LULS #### Point of Care testing , Commemt1 Glu2: Cleaned Meter Normal [facility] Comment on above: Result Comment: PERF ORMED BY: [place] [address] PATHOLOGIST SHEEP SORTER RIDGE HUERTA M.D. Performed By: #### U HCG #### [place] [address] [place] Glucose [Mass/Vol] 166 mg/dL Normal [facility] Comment on above: Result Comment: [place] om Glucose Reference Range is dependent on time and content of last meal. Glucose of more than 200 mg/dL in a nonstressed, ambulatory subject supports the diagnosis of Diabetes Mellitus. Performed By: #### U HCG #### [address] Glucose [Mass/Vol] 168 mg/dL Normal [facility] Comment on above: Result Comment: [place] om Glucose Reference Range is dependent on time and content of last meal. Glucose of more than 200 mg/dL in a nonstressed, ambulatory subject supports the diagnosis of Diabetes Mellitus. PERFORMED BY: [address] SHELDONPanchito [place] [id number] PATHOLOGIST SHEEP SORTER RIDGE HUERTA M.D. Performed By: #### G LULS ####Point of Care testing, Ketones Auto test strip (U) [Mass/Vol]Ordered By: BONG Velez on 10-08-2023 Ketones (U) [Mass/Vol] Trace Negative [facility] Lactate [Moles/volume] in Se rum or PlasmaOrdered By: BONG Velez on 10-08-2023 Lactate [Moles/Vol] 1.9 mmol/L 0.5-2.2 [facility] Lactic Acidon 10-08-2023 Lactate [Moles/Vol] 2.0 mmol/L Off scale high 0.5-2.2 [facility] Comment on above: Result Comment: Crit ical Result : Called to and read back by: BERT NAJERA at: 10/08/2023 07:31:51 by:[id number] PERFORMED BY: [address] [place] [address] PATHOLOGIST SHEEP SORTER RIDGE HUERTA M.D. Performed By: #### L ACTIC ####[place] [id number] [place] [address] [facility] Lactate [Moles/Vol] 2.6 mmol/L Off scale high 0.5-2.2 [facility] Comment on above: Result Comment: Crit ical Result : Called to and read back by: CLARISSA PATEL at: 10/08/2023 00:48:06 by:HENRY PERFORMED BY: [address] [place] [address] PATHOLOGIST SHEEP SORTER RIDGE HUERTA M.D. Performed By: #### C MP, LACTIC ####[address] [address] [place] Lactic Acid Reflexon 024 Lactic Acid Reflex 1.9 mmol/L Normal 0.5-2.2 [facility] Comment on above: Result Comment: PERF ORMED BY: [place] [address] PATHOLOGIST SHEEP SORTER RIDGE HUERTA M.D. Performed By: #### L ACTIC RFX #### [facility] [address] [place] [address] Nitrite Test strip Ql (U)Ord ered By: BONG Velez on 10-08-2023 Nitrite Ql (U) Negative Negative [facility] Protein [Mass/volume] in Ser um or PlasmaOrdered By: BONG Velez on 10-08-2023 Protein [Mass/Vol] 6.3 g/dL Low 6.4-8.9 [facility] Comment on above: Performed By: #### U HCG #### [address] Serum globulin measurement b y calculation (mass/volume)Ordered By: BONG Velez on 10-08-2023 Globulin (S) [Mass/Vol] 2.6 g/dL Normal [facility] Comment on above: Performed By: #### U HCG #### [address] Serum or plasma albumin/glob ulin mass ratioOrdered By: BONG Velez on 10-08-2023 Albumin/Globulin [Mass ratio] 1.4 {ratio} Normal [facility] Comment on above: Performed By: #### U HCG #### [address] Specific gravity Auto test s trip (U) [Rel density]Ordered By: BONG Velez on 10-08-2023 Specific gravity (U) [Rel density] > 1.050 1.001-1.03 0 [facility] Squamous epithelial cells de tection in urine sediment by light microscopyOrdered By: BONG Velez on 10-08-2023 Epithelial cells.squamous LM Ql (Urine sed) 5-9 [HPF] 0-2 [facility] Urine bacteria detection by automated methodOrdered By: BONG Velez on 10-08-2023 Bacteria Auto Ql (U) None seen None Seen [facility] Urine clarity by refractomet ry automatedOrdered By: BONG Velez on 10-08-2023 Clarity Refractometry automated (U) Turbid Clear [facility] Urine glucose measurement by automated test strip (mass/volume)Ordered By: ARIELLE Velez on 10-08-2023 Glucose Auto test strip (U) [Mass/Vol] 250 mg/dL Normal [facility] Urine hemoglobin detection b y automated test stripOrdered By: BONG Velez on 10-08-2023 Hemoglobin Auto test strip Ql (U) Negative Negative [facility] Urine leukocyte esterase det ection by automated test stripOrdered By: BONG Veelz on 10-08-2023 Leukocyte esterase Auto test strip Ql (U) Negative Negative [facility] Urine pH measurement by auto mated test stripOrdered By: BONG Velez on 10-08-2023 pH (U) 5.5 [pH] Normal 5.0-9.0 [facility] Comment on above: Order Comment: Name Collection Type:: Martinez Catheter Performed By: #### A DDONUAPLUS #### [facility] [address] Urine protein measurement by automated test strip (mass/volume)Ordered By: ARIELLE Velez on 10-08-2023 Protein (U) [Mass/Vol] 30 mg/dL High Negative [facility] Comment on above: Order Comment: Name Collection Type:: Martinez Catheter Performed By: #### A DDONUAPLUS #### [facility] [address] [place] [address] [place] Urobilinogen Auto test strip (U) [Mass/Vol]Ordered By: BONG Velez on 10-08-2023 Urobilinogen (U) [Mass/Vol] Normal mg/dL Normal [facility] Capillary blood glucose ashwini urement by glucometer (mass/volume)Ordered By: Carri Manuel on 09-28-2023 Glucose [Mass/Vol] 196 mg/dL Normal [facility] Comment on above: Random Glucose Refer ence Range is dependent on time and content of last meal. Glucose of more than 200 mg/dL in a nonstressed, ambulatory subject supports the diagnosis of Diabetes Mellitus. Result Comment: [facility] Glucose Reference Range is dependent on time and content of last meal. Glucose of more than 200 mg/dL in a nonstressed, ambulatory subject supports the diagnosis of Diabetes Mellitus. PERFORMED BY: [place] [address] PATHOLOGIST SHEEP SORTER RIDGE HUERTA M.D. Performed By: #### G LULS ####Point of Care testing, Glucose Poct Glucometerson 1 11-29-2022 Commemt1 Glu2: Cleaned Meter Normal [facility] Comment on above: Result Comment: PERF ORMED BY: [place] [address] PATHOLOGIST SHEEP SORTER RIDGE HUERTA M.D. Performed By: #### U HCG #### [address] Glucose [Mass/Vol] 153 mg/dL Normal [facility] Comment on above: Result Comment: [facility] Glucose Reference Range is dependent on time and content of last meal. Glucose of more than 200 mg/dL in a nonstressed, ambulatory subject supports the diagnosis of Diabetes Mellitus. Performed By: #### U HCG #### [facility] [address] [place] [address] HCG ( test) IA.rapi d Ql (U)Ordered By: Edna Álvarez on 09-28-2023 HCG ( test) Ql (U) Negative [facility] HCG,Urineon 09-28-2023 Beta HCG ( test) Ql (U) Negative Normal [facility] Comment on above: Result Comment: PERF ORMED BY: [place] [address] PATHOLOGIST SHEEP SORTER RIDGE HUERTA M.D. Performed By: #### U HCG #### [facility] [address] [place] [address], [place] [address] [facility] 09-28-2023 L ------- Specimen: [id number] Received: 09/28/23 Status: BLUE Neal Num: [id number] Spec Type: Surgical Subm Dr: Carri Manuel DO Tissues: A Uterus w/ or w/o tubes ovaries except neoplastic or prolap (CERVIX, MIGUELINA TU Procedures: , Gross/Micro L5 Age/ Patient Sex Location Account Attending Physician Rcahel Mcgarry 43/F [place] [id number] Carri Manuel DO SPEC NUM: [id number] RECD: 09/28/23 STATUS: BLUE NEAL NUM: [id number] JOSEPH: 09/28/[address]: Carri Manuel DO ENTERED: 09/28/[address] [facility] [address]: SPEC TYPE: Surgical DEPT: S ORDERED: HE/12, Gross/Micro [...] an unremarkable, pinpoint lumen on cut section. Acute Dialysis Nurse sections are submitted in 6 cassettes as follows: A1 - Anterior cervix A2 - Posterior cervix A3 - Anterior endomyometrium Specimen: [id number] Received: 09/28/23 Status: BLUE Damon Num: [id number] Spec Type: Surgical Subm Dr: Carri A Visci, DO Tissues: A Uterus w/ or w/o tubes ovaries except neoplastic or prolap (CERVIX, MIGUELINA TU Procedures: , Gross/Micro L5 Patient: Rachel Mcgarry Tyron [id number] (Continued) Specimen: [id number] Received: 09/28/23 (Continued) Gross Description (Continued) Signed (signature on file) Nikkie Munguia MD 09/29/23 2213 Specimen: [id number] Received: 09/28/23 Status: BLUE Neal Num: [id number] Spec Type: Surgical Subm Dr: Carri Manuel, DO Tissues: A Uterus w/ or w/o tubes ovaries except neoplastic or prolap (CERVIX, MIGUELINA TU Procedures: , Gross/Micro L5 Patient: Rachel Mcgarry [id number] (Continued) Specimen: [id number] Received: 09/28/23 (Continued) Gross Description (Continued) A4 - Posterior endomyometrium A5 - Right fallopian tube A6 - Left fallopian tube Microscopic Description Six H E slides reviewed. The microscopic examination confirms the diagnosis. CPT Codes 07849 Specimen: [id number] Received: 09/28/23 Status: BLUE Neal Num: [id number] Spec Type: Surgical Subm Dr: Carri Manuel, Tissues: A Uterus w/ or w/o tubes ovaries except neoplastic or prolap (CERVIX, MIGUELINA TU Procedures: , Gross/Micro L5 Patient: Rachel Mcgarry [id number] (Continued) Signed (signature on file) Nikkie Munguia MD 09/29/232212 Normal [facility] No Panel InformationOrdered By: Carri Manuel on 09-28-2023 Bedside Glucose Comment Glu2: cleaned meter [facility] Automated basophil %Ordered By: Carri Manuel on 09-16-2023 Basophils/100 WBC (Bld) 0.6 % Normal . [facility] Comment on above: Performed By: #### U HCG #### [facility] [address] Automated basophil countOrde red By: Carri Manuel on 09-16-2023 Basophils (Bld) [#/Vol] 0.1 10*3/uL Normal 0.0-0.2 [facility] Comment on above: Result Comment: PERF ORMED BY: [facility] [address] [place] [address] PATHOLOGIST SHEEP SORTER RIDGE HUERTA M.D. Performed By: #### U HCG #### [facility] [address] Automated blood monocyte cou ntOrdered By: Carri Manuel on 09-16-2023 Monocytes (Bld) [#/Vol] 0.9 10*3/uL High 0.0-0.8 [facility] Comment on above: Performed By: #### U HCG #### [address] Automated eosinophil %Ordere d By: Carri Guzman on 09-16-2023 Eosinophils/100 WBC (Bld) 0.5 % Normal . [facility] Comment on above: Performed By: #### U HCG #### [facility] [address] Automated eosinophil countOr dered By: Carri Guzman on 09-16-2023 Eosinophils (Bld) [#/Vol] 0.1 10*3/uL Normal 0.0-0.45 [facility] Comment on above: Performed By: #### U HCG #### [address] Automated monocyte %Ordered By: Carri Guzman on 09-16-2023 Monocytes/100 WBC (Bld) 7.5 % Normal . [facility] Comment on above: Performed By: #### U HCG #### [address] Automated neutrophil %Ordere d By: Carri Guzman on 09-16-2023 Neutrophils/100 WBC (Bld) 66.5 % Normal . [facility] Comment on above: Performed By: #### U HCG #### [address] Basic Metabolic Panelon 09-03 GFR/1.73 sq M.predicted MDRD (S/P/Bld) [Vol rate/Area] mL/min/{1.73_m2} Normal [facility] Comment on above: Performed By: #### U HCG #### [address] Calcium [Mass/volume] in Ser um or PlasmaOrdered By: Carri Manuel on 09-16-2023 Calcium [Mass/Vol] 9.3 mg/dL Normal 8.6-10.3 [facility] Comment on above: Result Comment: PERF ORMED BY: [address] [place] [address] PATHOLOGIST SHEEP SORTER RIDGE HUERTA M.D. Performed By: #### U HCG #### [address] Carbon dioxide, total [Moles /volume] in Serum or PlasmaOrdered By: Carri Manuel on 09-16-2023 CO2 [Moles/Vol] 25.5 mmol/L Normal 21.0-31.0 [facility] Comment on above: Performed By: #### U HCG #### [address] Chloride [Moles/volume] in S alissa or PlasmaOrdered By: Carri Manuel on 09-16-2023 Chloride [Moles/Vol] 99 mmol/L Normal 98-107 [facility] Comment on above: Performed By: #### U HCG #### [address] Complete Blood Count Auto Di ffon 09-16-2023 Mean Corpuscular HGB Conc 33.5 g/dL Normal 32.0-35.0 [facility] Comment on above: Performed By: #### U HCG #### [address] NRBC% 0.1 /100{WBC} Normal 0-0.5 [facility] Comment on above: Performed By: #### U HCG #### [address] Creatinine [Mass/volume] in Serum or PlasmaOrdered By: Carri Manuel on 09-16-2023 Creatinine [Mass/Vol] 0.68 mg/dL Normal 0.60-1.20 [facility] Comment on above: Performed By: #### U HCG #### [address] Erythrocyte distribution wid th [Ratio] by Automated countOrdered By: Carri Manuel on 09-16-2023 Erythrocyte distribution width (RBC) [Ratio] 13.3 % Normal 11.9-15.3 [facility] Comment on above: Performed By: #### U HCG #### [address] Erythrocytes [#/volume] in B lood by Automated countOrdered By: Carri Manuel on 09-16-2023 RBC (Bld) [#/Vol] 4.31 10*6/uL Normal 3.60-5.00 [facility] Comment on above: Performed By: #### U HCG #### [address] Glucose [Mass/volume] in Ser um or PlasmaOrdered By: Carri Manuel on 09-16-2023 Glucose [Mass/Vol] 355 mg/dL High 70-100 [facility] Comment on above: ADA recommended refe rence rangeRandom Glucose Reference Range is dependent on time and content of last meal. Glucose of more than 200 mg/dL in a nonstressed, ambulatory subject supports the diagnosis of Diabetes Mellitus. Result Comment: [place] Glucose Reference Range is dependent on time and content of last meal. Glucose of more than 200 mg/dL in a nonstressed, ambulatory subject supports the diagnosis of Diabetes Mellitus. ADA recommended reference range Performed By: #### U HCG #### [address] Hematocrit [Volume Fraction] of Blood by Automated countOrdered By: Carri Manuel on 09-16-2023 Hematocrit (Bld) [Volume fraction] 38.3 % Normal 34.0-46.4 [facility] Comment on above: Performed By: #### U HCG #### [address] Hemoglobin [Mass/volume] in BloodOrdered By: Carri Manuel on 09-16-2023 Hemoglobin (Bld) [Mass/Vol] 12.8 g/dL Normal 11.8-15.4 [facility] Comment on above: Performed By: #### U HCG #### [place] [address] [place] Leukocytes [#/volume] correc cherie for nucleated erythrocytes in Blood by Automated counOrdered By: Carri Manuel on 09-16-2023 WBC corrected for nucl RBC Auto (Bld) [#/Vol] 12.5 10*3/uL 3.8-11.6 [facility] Leukocytes [#/volume] in Blo od by Automated countOrdered By: Carri Manuel on 09-16-2023 WBC (Bld) [#/Vol] 12.5 10*3/uL High 3.8-11.6 [facility] Comment on above: Performed By: #### U HCG #### [address] Lymphocytes [#/volume] in Bl ood by Automated countOrdered By: Carri Manuel on 09-16-2023 Lymphocytes (Bld) [#/Vol] 3.1 10*3/uL Normal 1.00-4.8 [facility] Comment on above: Performed By: #### U HCG #### [address] Lymphocytes/100 leukocytes i n Blood by Automated countOrdered By: Carri Manuel on 09-16-2023 Lymphocytes/100 WBC (Bld) 24.9 % Normal . [facility] Comment on above: Performed By: #### U HCG #### [address] MCH [Entitic mass] by Automa cherie countOrdered By: Carri Manuel on 09-16-2023 MCH (RBC) [Entitic mass] 29.7 pg Normal 24.7-34.3 [facility] Comment on above: Performed By: #### U HCG #### [address] MCHC Auto (RBC) [Mass/Vol]Or dered By: Carri Manuel on 09-16-2023 MCHC (RBC) [Mass/Vol] 33.5 g/dL 32.0-35.0 [facility] MCV [Entitic volume] by Auto mated countOrdered By: Carri Manuel on 09-16-2023 MCV (RBC) [Entitic vol] 88.8 fL Normal 80-100 [facility] Comment on above: Performed By: #### U HCG #### [address] [place] [address] [place] Neutrophils [#/volume] in Bl ood by Automated countOrdered By: Carri Manuel on 09-16-2023 Neutrophils (Bld) [#/Vol] 8.3 10*3/uL High 1.8-7.7 [facility] Comment on above: Performed By: #### U HCG #### [facility] [address] [place] [address] No Panel InformationOrdered By: Carri Manuel on 09-16-2023 Estimated GFR (CKD-EPI) > 60.0 mL/Min [facility] Creatinine Clearance (Chem N/A [facility] Nucleated erythrocytes [Pres ence] in Blood by Automated countOrdered By: Carri Manuel on 09-16-2023 Nucleated RBC Auto Ql (Bld) 0.1 /100{WBC} 0-0.5 [facility] PST Type and Screenon 2022 ABO and Rh group Nom (Bld) Blood group A Rh(D) positive Normal [facility] Comment on above: Order Comment: Date of Surgery: [id number] Result Comment: PERF ORMED BY: [place] [address] PATHOLOGIST SHEEP SORTER RIDGE HUERTA M.D. Platelet mean volume [Entiti c volume] in Blood by Automated countOrdered By: Carri Manuel on 09-16-2023 Platelet mean volume (Bld) [Entitic vol] 8.2 fL Normal 6.3-10.7 [facility] Comment on above: Performed By: #### U HCG #### [facility] [address] [place] [address] [place] Platelets [#/volume] in Bloo d by Automated countOrdered By: Carri Manuel on 09-16-2023 Platelets (Bld) [#/Vol] 305 10*3/uL Normal 150-450 [facility] Comment on above: Performed By: #### U HCG #### [facility] [address] [place] [address] [place] Potassium [Moles/volume] in Serum or PlasmaOrdered By: Carri Manuel on 09-16-2023 Potassium [Moles/Vol] 5.0 mmol/L Normal 3.5-5.1 [facility] Comment on above: Performed By: #### U HCG #### [facility] [address] Serum or plasma anion gap de terminationOrdered By: Carri Manuel on 09-16-2023 Anion gap [Moles/Vol] 14.5 mmol/L Normal 6.0-15.0 [facility] Comment on above: Performed By: #### U HCG #### [facility] [address] Sodium [Moles/volume] in Ser um or PlasmaOrdered By: Carri Manuel on 09-16-2023 Sodium [Moles/Vol] 134 mmol/L Low 136-145 [facility] Comment on above: Performed By: #### U HCG #### [facility] [address] Urea nitrogen [Mass/volume] in Serum or PlasmaOrdered By: Carri Manuel on 09-16-2023 Urea nitrogen [Mass/Vol] 13 mg/dL Normal 7-25 [facility] Comment on above: Performed By: #### U HCG #### [facility] [address] [place] [address] Glucose Glucometer (BldC) [M ass/Vol]Ordered By: Carri Manuel on 07-13-2023 Glucose [Mass/Vol] 119 mg/dL [facility] Comment on above: Random Glucose Refer ence Range is dependent on time and content of last meal. Glucose of more than 200 mg/dL in a nonstressed, ambulatory subject supports the diagnosis of Diabetes Mellitus. HCG ( test) IA.rapi d Ql (U)Ordered By: Julio Monroe on 07-13-2023 HCG ( test) Ql (U) Negative [facility] No Panel InformationOrdered By: Carri Manuel on 07-13-2023 Bedside Glucose Comment Glu2: cleaned meter [facility] Basophils Auto (Bld) [#/Vol] Ordered By: Carri Manuel on 06-30-2023 Basophils (Bld) [#/Vol] 0.1 10*3/uL 0.0-0.2 [facility] Basophils/100 WBC Auto (Bld) Ordered By: Carri Manuel on 06-30-2023 Basophils/100 WBC (Bld) 0.7 % . [facility] Calcium [Mass/volume] in Ser um or PlasmaOrdered By: Carri Manuel on 06-30-2023 Calcium [Mass/Vol] 9.2 mg/dL 8.6-10.3 [facility] Carbon dioxide, total [Moles /volume] in Serum or PlasmaOrdered By: Carri Manuel on 06-30-2023 CO2 [Moles/Vol] 26.7 mmol/L 21.0-31.0 [facility] Chloride [Moles/volume] in S alissa or PlasmaOrdered By: Carri Manuel on 06-30-2023 Chloride [Moles/Vol] 100 mmol/L 98-107 [facility] Creatinine [Mass/volume] in Serum or PlasmaOrdered By: Carri Manuel on 06-30-2023 Creatinine [Mass/Vol] 0.54 mg/dL 0.60-1.20 [facility] Eosinophils Auto (Bld) [#/Vo l]Ordered By: Carri Manuel on 06-30-2023 Eosinophils (Bld) [#/Vol] 0.1 10*3/uL 0.0-0.45 [facility] Eosinophils/100 WBC Auto (Bl d)Ordered By: Carri Manuel on 06-30-2023 Eosinophils/100 WBC (Bld) 0.4 % . [facility] Erythrocyte distribution wid th Auto (RBC) [Ratio]Ordered By: Carri Manuel on 06-30-2023 Erythrocyte distribution width (RBC) [Ratio] 13.3 % 11.9-15.3 [facility] Glucose [Mass/volume] in Ser um or PlasmaOrdered By: Carri Manuel on 06-30-2023 Glucose [Mass/Vol] 134 mg/dL 70-100 [facility] Comment on above: ADA recommended refe rence rangeRandom Glucose Reference Range is dependent on time and content of last meal. Glucose of more than 200 mg/dL in a nonstressed, ambulatory subject supports the diagnosis of Diabetes Mellitus. Hematocrit Auto (Bld) [Volum e fraction]Ordered By: Carri Manuel on 06-30-2023 Hematocrit (Bld) [Volume fraction] 38.9 % 34.0-46.4 [facility] Hemoglobin [Mass/volume] in BloodOrdered By: Carri Manuel on 06-30-2023 Hemoglobin (Bld) [Mass/Vol] 13.0 g/dL 11.8-15.4 [facility] Leukocytes [#/volume] correc cherie for nucleated erythrocytes in Blood by Automated counOrdered By: Carri Manuel on 06-30-2023 WBC corrected for nucl RBC Auto (Bld) [#/Vol] 15.4 10*3/uL 3.8-11.6 [facility] Lymphocytes Auto (Bld) [#/Vo l]Ordered By: Carri Manuel on 06-30-2023 Lymphocytes (Bld) [#/Vol] 4.3 10*3/uL 1.00-4.8 [facility] Lymphocytes/100 WBC Auto (Bl d)Ordered By: Carri Manuel on 06-30-2023 Lymphocytes/100 WBC (Bld) 27.8 % . [facility] MCH Auto (RBC) [Entitic mass ]Ordered By: Carri Manuel on 06-30-2023 MCH (RBC) [Entitic mass] 30.0 pg 24.7-34.3 [facility] MCHC Auto (RBC) [Mass/Vol]Or dered By: Carri Manuel on 06-30-2023 MCHC (RBC) [Mass/Vol] 33.5 g/dL 32.0-35.0 [facility] MCV Auto (RBC) [Entitic vol] Ordered By: Carri Manuel on 06-30-2023 MCV (RBC) [Entitic vol] 89.6 fL 80-100 [facility] Monocytes Auto (Bld) [#/Vol] Ordered By: Carri Manuel on 06-30-2023 Monocytes (Bld) [#/Vol] 1.2 10*3/uL 0.0-0.8 [facility] Monocytes/100 WBC Auto (Bld) Ordered By: Carri Manuel on 06-30-2023 Monocytes/100 WBC (Bld) 7.5 % . [facility] Neutrophils Auto (Bld) [#/Vo l]Ordered By: Carri Manuel on 06-30-2023 Neutrophils (Bld) [#/Vol] 9.8 10*3/uL 1.8-7.7 [facility] Neutrophils/100 WBC Auto (Bl d)Ordered By: Carri Manuel on 06-30-2023 Neutrophils/100 WBC (Bld) 63.6 % . [facility] No Panel InformationOrdered By: Carri Manuel on 06-30-2023 Estimated GFR (CKD-EPI) > 60.0 mL/Min [facility] Creatinine Clearance (Chem N/A [facility] Nucleated erythrocytes [Pres ence] in Blood by Automated countOrdered By: Carri Manuel on 06-30-2023 Nucleated RBC Auto Ql (Bld) 0.0 /100{WBC} 0-0.5 [facility] Platelet mean volume Auto (B ld) [Entitic vol]Ordered By: Carri Manuel on 06-30-2023 Platelet mean volume (Bld) [Entitic vol] 7.9 fL 6.3-10.7 [facility] Platelets Auto (Bld) [#/Vol] Ordered By: Carri Manuel on 06-30-2023 Platelets (Bld) [#/Vol] 275 10*3/uL 150-450 [facility] Potassium [Moles/volume] in Serum or PlasmaOrdered By: Carri Manuel on 06-30-2023 Potassium [Moles/Vol] 4.3 mmol/L 3.5-5.1 [facility] RBC Auto (Bld) [#/Vol]Ordere d By: Carri Manuel on 06-30-2023 RBC (Bld) [#/Vol] 4.34 10*6/uL 3.60-5.00 [facility] Serum or plasma anion gap de terminationOrdered By: Carri Manuel on 06-30-2023 Anion gap [Moles/Vol] 14.6 mmol/L 6.0-15.0 [facility] Sodium [Moles/volume] in Ser um or PlasmaOrdered By: Carri Manuel on 06-30-2023 Sodium [Moles/Vol] 137 mmol/L 136-145 [facility] Urea nitrogen [Mass/volume] in Serum or PlasmaOrdered By: Carri Manuel on 06-30-2023 Urea nitrogen [Mass/Vol] 11 mg/dL 7-25 [facility] WBC Auto (Bld) [#/Vol]Ordere d By: Carri Manuel on 06-30-2023 WBC (Bld) [#/Vol] 15.4 10*3/uL 3.8-11.6 [facility] HCG ( test) IA.mateus d Ql (U)Ordered By: Kyler Miramontes on 05-05-2023 HCG ( test) Ql (U) Negative [facility] Alanine aminotransferase [En zymatic activity/volume] in Serum or PlasmaOrdered By: Ajit Pettit on 05-04-2023 ALT [Catalytic activity/Vol] 17 U/L 752 [facility] Albumin [Mass/volume] in Ser um or Plasma by Bromocresol green (BCG) dye binding methoOrdered By: Ajit Pettit on 05-04-2023 Albumin BCG dye [Mass/Vol] 4.4 g/dL 3.5-5.7 [facility] Alkaline phosphatase [Enzyma tic activity/volume] in Serum or PlasmaOrdered By: Ajit Pettit on 05-04-2023 ALP [Catalytic activity/Vol] 55 U/L 34-104 [facility] Aspartate aminotransferase [ Enzymatic activity/volume] in Serum or PlasmaOrdered By: Ajit Pettit on 05-04-2023 AST [Catalytic activity/Vol] 18 U/L 13-39 [facility] Basophils Auto (Bld) [#/Vol] Ordered By: Ajit Pettit on 05-04-2023 Basophils (Bld) [#/Vol] 0.1 10*3/uL 0.0-0.2 [facility] Basophils/100 WBC Auto (Bld) Ordered By: Ajit Pettit on 05-04-2023 Basophils/100 WBC (Bld) 0.9 % . [facility] Bilirubin.total [Mass/volume ] in Serum or PlasmaOrdered By: Ajit Pettit on 05-04-2023 Bilirubin [Mass/Vol] 0.3 mg/dL 0.3-1.0 [facility] Calcium [Mass/volume] in Ser um or PlasmaOrdered By: Ajit Pettit on 05-04-2023 Calcium [Mass/Vol] 9.6 mg/dL 8.6-10.3 [facility] Carbon dioxide, total [Moles /volume] in Serum or PlasmaOrdered By: Ajit Pettit on 05-04-2023 CO2 [Moles/Vol] 28.5 mmol/L 21.0-31.0 [facility] Chloride [Moles/volume] in S alissa or PlasmaOrdered By: Ajit Pettit on 05-04-2023 Chloride [Moles/Vol] 100 mmol/L 98-107 [facility] Cholesterol [Mass/volume] in Serum or PlasmaOrdered By: Ajit Pettit on 05-04-2023 Cholesterol [Mass/Vol] 180 mg/dL 140-200 [facility] Comment on above: Chol less than 200 m g/dl low riskChol 201-239 mg/dl borderline riskChol 240 mg/dl and greater high risk Cholesterol in LDL Calc [Mas s/Vol]Ordered By: Ajit Pettit on 05-04-2023 Cholesterol in LDL [Mass/Vol] 81 mg/dL 0-100 [facility] Comment on above: LDL ATP III CLASSIFI CATIONLDL less than 100 mg/dL OptimalLDL 100-129 mg/dL Near or above optimalLDL 130-159 mg/dL Borderline highLDL 160-189 mg/dL HighLDL greater than 189 mg/dL Very high Cholesterol in VLDL Calc [Ma ss/Vol]Ordered By: Ajit Pettit on 05-04-2023 Cholesterol in VLDL [Mass/Vol] 46 mg/dL [facility] Creatinine [Mass/volume] in Serum or PlasmaOrdered By: Ajit Pettit on 05-04-2023 Creatinine [Mass/Vol] 0.65 mg/dL 0.60-1.20 [facility] Eosinophils Auto (Bld) [#/Vo l]Ordered By: Ajit Pettit on 05-04-2023 Eosinophils (Bld) [#/Vol] 0.1 10*3/uL 0.0-0.45 [facility] Eosinophils/100 WBC Auto (Bl d)Ordered By: Ajit Pettit on 05-04-2023 Eosinophils/100 WBC (Bld) 0.5 % . [facility] Erythrocyte distribution wid th Auto (RBC) [Ratio]Ordered By: Ajit Pettit on 05-04-2023 Erythrocyte distribution width (RBC) [Ratio] 13.4 % 11.9-15.3 [facility] Ferritin [Mass/volume] in Se rum or PlasmaOrdered By: Ajit Pettit on 05-04-2023 Ferritin [Mass/Vol] 90.4 ng/mL 11.0-306.8 [facility] Globulin Calc (S) [Mass/Vol] Ordered By: Ajit Pettit on 05-04-2023 Globulin (S) [Mass/Vol] 2.3 g/dL [facility] Glucose [Mass/volume] in Ser um or PlasmaOrdered By: Ajit Pettit on 05-04-2023 Glucose [Mass/Vol] 124 mg/dL 70-100 [facility] Comment on above: ADA recommended refe rence rangeRandom Glucose Reference Range is dependent on time and content of last meal. Glucose of more than 200 mg/dL in a nonstressed, ambulatory subject supports the diagnosis of Diabetes Mellitus. Hematocrit Auto (Bld) [Volum e fraction]Ordered By: Ajit Pettit on 05-04-2023 Hematocrit (Bld) [Volume fraction] 41.7 % 34.0-46.4 [facility] Hemoglobin [Mass/volume] in BloodOrdered By: Ajit Pettit on 05-04-2023 Hemoglobin (Bld) [Mass/Vol] 14.0 g/dL 11.8-15.4 [facility] Iron [Mass/volume] in Serum or PlasmaOrdered By: Ajit Pettit on 05-04-2023 Iron [Mass/Vol] 95 ug/dL 50-212 [facility] Iron binding capacity [Mass/ volume] in Serum or PlasmaOrdered By: Ajit Pettit on 05-04-2023 Iron binding capacity [Mass/Vol] 476 ug/dL 255-450 [facility] Iron saturation [Mass Fracti on] in Serum or PlasmaOrdered By: Ajit Pettit on 05-04-2023 Iron saturation [Mass fraction] 20.0 % 20-50 [facility] Leukocytes [#/volume] correc cherie for nucleated erythrocytes in Blood by Automated counOrdered By: Ajit Pettit on 05-04-2023 WBC corrected for nucl RBC Auto (Bld) [#/Vol] 14.4 10*3/uL 3.8-11.6 [facility] Lymphocytes Auto (Bld) [#/Vo l]Ordered By: Ajit Pettit on 05-04-2023 Lymphocytes (Bld) [#/Vol] 3.2 10*3/uL 1.00-4.8 [facility] Lymphocytes/100 WBC Auto (Bl d)Ordered By: Ajit Pettit on 05-04-2023 Lymphocytes/100 WBC (Bld) 22.3 % . [facility] MCH Auto (RBC) [Entitic mass ]Ordered By: Ajit Pettit on 05-04-2023 MCH (RBC) [Entitic mass] 29.8 pg 24.7-34.3 [facility] MCHC Auto (RBC) [Mass/Vol]Or dered By: Ajit Pettit on 05-04-2023 MCHC (RBC) [Mass/Vol] 33.5 g/dL 32.0-35.0 [facility] MCV Auto (RBC) [Entitic vol] Ordered By: Ajit Pettit on 05-04-2023 MCV (RBC) [Entitic vol] 89.1 fL 80-100 [facility] Monocytes Auto (Bld) [#/Vol] Ordered By: Ajit Pettit on 05-04-2023 Monocytes (Bld) [#/Vol] 0.9 10*3/uL 0.0-0.8 [facility] Monocytes/100 WBC Auto (Bld) Ordered By: Ajit Pettit on 05-04-2023 Monocytes/100 WBC (Bld) 6.3 % . [facility] Neutrophils Auto (Bld) [#/Vo l]Ordered By: Ajit Pettit on 05-04-2023 Neutrophils (Bld) [#/Vol] 10.1 10*3/uL 1.8-7.7 [facility] Neutrophils/100 WBC Auto (Bl d)Ordered By: Ajit Pettit on 05-04-2023 Neutrophils/100 WBC (Bld) 70.0 % . [facility] No Panel InformationOrdered By: Ajit Pettit on 05-04-2023 Estimated GFR (CKD-EPI) > 60.0 mL/Min [facility] Creatinine Clearance (Chem N/A [facility] Nucleated erythrocytes [Pres ence] in Blood by Automated countOrdered By: Ajit Pettit on 05-04-2023 Nucleated RBC Auto Ql (Bld) 0.1 /100{WBC} 0-0.5 [facility] Platelet mean volume Auto (B ld) [Entitic vol]Ordered By: Ajit Pettit on 05-04-2023 Platelet mean volume (Bld) [Entitic vol] 8.4 fL 6.3-10.7 [facility] Platelets Auto (Bld) [#/Vol] Ordered By: Ajit Pettit on 05-04-2023 Platelets (Bld) [#/Vol] 328 10*3/uL 150-450 [facility] Potassium [Moles/volume] in Serum or PlasmaOrdered By: Ajit Pettit on 05-04-2023 Potassium [Moles/Vol] 5.3 mmol/L 3.5-5.1 [facility] Protein [Mass/volume] in Ser um or PlasmaOrdered By: Ajit Pettit on 05-04-2023 Protein [Mass/Vol] 6.7 g/dL 6.4-8.9 [facility] RBC Auto (Bld) [#/Vol]Ordere d By: Ajit Pettit on 05-04-2023 RBC (Bld) [#/Vol] 4.68 10*6/uL 3.60-5.00 [facility] Serum or plasma albumin/glob ulin mass ratioOrdered By: Ajit Pettit on 05-04-2023 Albumin/Globulin [Mass ratio] 1.9 {ratio} [facility] Serum or plasma anion gap de terminationOrdered By: Ajit Pettit on 05-04-2023 Anion gap [Moles/Vol] 11.8 mmol/L 6.0-15.0 [facility] Serum or plasma high density lipoprotein (HDL) cholesterol measurementOrdered By: Ajit Pettit on 05-04-2023 Cholesterol in HDL [Mass/Vol] 52 mg/dL 23-92 [facility] Comment on above: HDL CHOL ATP-III CLA SSIFICATION Cardiovascular RiskHDL > or equal to 60 mg/dL LOWHDL < 40 mg/dL HIGH Serum or plasma total choles terol/high density lipoprotein (HDL) cholesterol mass ratOrdered By: Ajit Pettit on 05-04-2023 Cholesterol.total/Suellen sterol in HDL [Mass ratio] 3.5 {ratio} <5.0 [facility] Sodium [Moles/volume] in Ser um or PlasmaOrdered By: Ajit Pettit on 05-04-2023 Sodium [Moles/Vol] 135 mmol/L 136-145 [facility] Thyrotropin [Units/volume] i n Serum or PlasmaOrdered By: Ajit Pettit on 05-04-2023 TSH Qn 1.97 m[IU]/L 0.45-5.33 [facility] Transferrin [Mass/volume] in Serum or PlasmaOrdered By: Ajti Pettit on 05-04-2023 Transferrin [Mass/Vol] 340 mg/dL 203-362 [facility] Triglyceride [Mass/volume] i n Serum or PlasmaOrdered By: Ajit Pettit on 05-04-2023 Triglyceride [Mass/Vol] 233 mg/dL 0-149 [facility] Comment on above: TRIG ATP III CLASSIF ICATIONTRIG less than 150 mg/dL NormalTRIG 150-199 mg/dL Borderline highTRIG 200-500 mg/dL High TRIG greater than 500 mg/dL Very highStandard traceable to the Center for Disease Conrtrol and Prevention (CDC) test method. Urea nitrogen [Mass/volume] in Serum or PlasmaOrdered By: Ajit Pettit on 05-04-2023 Urea nitrogen [Mass/Vol] 9 mg/dL 7-25 [facility] Urine culture routineOrdered By: Ajit Pettit on 05-04-2023 Bacteria identified Cx Nom (U) Strep. agalactiae Grp B [facility] WBC Auto (Bld) [#/Vol]Ordere d By: Ajit Pettit on 05-04-2023 WBC (Bld) [#/Vol] 14.4 10*3/uL 3.8-11.6 [facility] HCG ( test) IA.mateus d Ql (U)Ordered By: Kyler Miramontes on 04-14-2023 HCG ( test) Ql (U) Negative [facility] CBC AUTO DIFFon 02-15-2023 BASO # 0.1 103/ul Normal 0.0-0.1 [facility] Comment on above: Performed By: #### C BC #### [facility] [address] [place] [address] Dr. Vito Grimm Basophils/100 WBC (Bld) 0.5 % Normal 0.2-2.0 [facility] Comment on above: Performed By: #### C BC #### [facility] [address] [place] [address] Dr. Vito Grimm EO # 0.1 103/ul Normal 0.0-0.7 [facility] Comment on above: Performed By: #### C BC #### [facility] [address] [place] [address] Dr. Vito Grimm Eosinophils/100 WBC (Bld) 0.8 % Critically low 0.9-7.0 [facility] Comment on above: Performed By: #### C BC #### [facility] [address] [place] [address] Dr. Vito Grimm Erythrocyte distribution width (RBC) [Ratio] 13.1 % Normal 11.0-15.0 [facility] Comment on above: Performed By: #### C BC #### [facility] [address] [place] [address] Dr. Vito Grimm Hematocrit (Bld) [Volume fraction] 41.2 % Normal 36.0-48.0 [facility] Comment on above: Performed By: #### C BC #### [facility] [address] [place] [address] Dr. Vito Grimm Hemoglobin (Bld) [Mass/Vol] 13.4 g/dL Normal 12.0-16.0 [facility] Comment on above: Performed By: #### C BC #### [facility] [address] [place] [address] Dr. Vito Grimm IG # 0.05 10e3/ul Critically high 0.00-0.03 [facility] Comment on above: Performed By: #### C BC #### [facility] [address] [place] [address] Dr. Vito Grimm IG % 0.4 % Normal 0.0-0.5 [facility] Comment on above: Performed By: #### C BC #### [facility] [address] [place] [address] Dr. Vito Grimm LYMPH # 4.8 103/ul Critically high 1.2-3.8 [facility] Comment on above: Performed By: #### C BC #### [facility] [address] [place] [address] Dr. Vito Grimm Lymphocytes/100 WBC (Bld) 38.8 % Normal 20.5-60.0 [facility] Comment on above: Performed By: #### C BC #### [facility] [address] [place] [address] Dr. Vito Grimm MANUAL DIFF REQ NO Normal [facility] Comment on above: Performed By: #### C BC #### [facility] [address] [place] [address] Dr. Vito Grimm MCH (RBC) [Entitic mass] 29.9 pg Normal 26.7-34.0 [facility] Comment on above: Performed By: #### C BC #### [facility] [address] [place] [address] Dr. Vito Grimm MCHC (RBC) [Mass/Vol] 32.5 g/dL Normal 29.9-35.2 [facility] Comment on above: Performed By: #### C BC #### [facility] [address] [place] [address] Dr. Vito Grimm MCV (RBC) [Entitic vol] 92.0 fL Normal 81.0-99.0 [facility] Comment on above: Performed By: #### C BC #### [facility] [address] [place] [address] Dr. Vito Grimm MONO # 0.9 103/ul Critically high 0.3-0.8 [facility] Comment on above: Performed By: #### C BC #### [facility] [address] [place] [address] Dr. Vito Grimm Monocytes/100 WBC (Bld) 7.4 % Normal 1.7-12.0 [facility] Comment on above: Performed By: #### C BC #### [facility] [address] [place] [address] Dr. Vito Grimm NEUT # 6.5 103/ul Normal 1.4-6.5 [facility] Comment on above: Performed By: #### C BC #### [facility] [address] [place] [address] Dr. Vito Grimm Neutrophils/100 WBC (Bld) 52.1 % Normal 43.0-75.0 [facility] Comment on above: Performed By: #### C BC #### [facility] [address] [place] [address] Dr. Vito Grimm Platelet mean volume (Bld) [Entitic vol] 10.0 fL Normal 9.5-13.5 [facility] Comment on above: Performed By: #### C BC #### [facility] [address] [place] [address] Dr. Vito Grimm PLT 298 103/ul Normal 150-[address] [facility] Comment on above: Performed By: #### C BC #### [facility] [address] [place] [address] Dr. Vito Grimm RBC 4.48 106/ul Normal 4.20-5.40 [facility] Comment on above: Performed By: #### C BC #### [facility] [address] [place] [address] Dr. Vito Grimm WBC 12.4 103/ul Critically high 4.0-11.0 [facility] Comment on above: Performed By: #### C BC #### [facility] [address] [place] [address] Dr. Vito Grimm DEPAKENE/ VALPROIC ACIDon DEPAKENE 49.4 ug/ml Critically low 50.0-100.0 [facility] Comment on above: Performed By: #### C MP, HSTROPN #### [facility] [address] [place] [address] Dr. Vito Grimm LACTATE/LACTIC ACIDon 2022 Lactate [Moles/Vol] 2.7 mmol/L Critically high 0.4-2.0 [facility] Comment on above: Performed By: #### L ACT #### [facility] [address] [place] [address] Dr. Vito Grimm PROF CHEM 8 (BAS METB)on Anion gap [Moles/Vol] 17.6 mmol/L Normal [facility] Comment on above: Performed By: #### B MP #### [facility] [address] [place] [address] Dr. Vito Grimm Calcium [Mass/Vol] 8.7 mg/dL Normal 8.5-10.1 [facility] Comment on above: Performed By: #### B MP #### [facility] [address] [place] [address] Dr. Vito Grimm Chloride [Moles/Vol] 99 mmol/L Normal 98-[address] [facility] Comment on above: Performed By: #### B MP #### [facility] [address] [place] [address] Dr. Vito Grimm CO2 [Moles/Vol] 23.5 mmol/L Normal 21.0-32.0 [facility] Comment on above: Performed By: #### B MP #### [facility] [address] [place] [address] Dr. Vito Grimm Creatinine [Mass/Vol] 0.75 mg/dL Normal 0.55-1.02 [facility] Comment on above: Performed By: #### B MP #### [facility] [address] [place] [address] Dr. Vito Grimm EGFR-AF TURKMEN >60 Normal >=60 [facility] Comment on above: Performed By: #### B MP #### [facility] [address] [place] [address] Dr. Vito Grimm EGFR-NON AF TURKMEN >60 Normal >=60 [facility] Comment on above: Performed By: #### B MP #### [facility] [address] [address] [address] Vito Grimm Glucose [Mass/Vol] 273 mg/dL Critically high 74-106 [facility] Comment on above: Performed By: #### B MP #### [facility] [address] [address] [address] Vito Grimm Potassium [Moles/Vol] 4.1 mmol/L Normal 3.5-5.1 [facility] Comment on above: Performed By: #### B MP #### [facility] [address] [address] [address] Vito Grimm Sodium [Moles/Vol] 136 mmol/L Normal 136-145 [facility] Comment on above: Performed By: #### B MP #### [facility] [address] [address] [address] Vito Grimm Urea nitrogen [Mass/Vol] 6.0 mg/dL Critically low 7.0-18.0 [facility] Comment on above: Performed By: #### B MP #### [facility] [address] [place] [address] Dr. Vito Grimm Urea nitrogen/Creatinine [Mass ratio] 8.0 mg/mg Normal [facility] Comment on above: Performed By: #### B MP #### [facility] [address] [address] [address] Vito Grimm Alanine aminotransferase [En zymatic activity/volume] in Serum or PlasmaOrdered By: Ajit Pettit on 02-09-2023 ALT [Catalytic activity/Vol] 29 U/L 7 [facility] Albumin [Mass/volume] in Ser um or Plasma by Bromocresol green (BCG) dye binding methoOrdered By: Ajit Pettit on 02-09-2023 Albumin BCG dye [Mass/Vol] 4.4 g/dL 3.5-5.7 [facility] Alkaline phosphatase [Enzyma tic activity/volume] in Serum or PlasmaOrdered By: Ajit Pettit on 02-09-2023 ALP [Catalytic activity/Vol] 72 U/L 34-104 [facility] Aspartate aminotransferase [ Enzymatic activity/volume] in Serum or PlasmaOrdered By: Ajit Pettit on 02-09-2023 AST [Catalytic activity/Vol] 27 U/L 13-39 [facility] Basophils Auto (Bld) [#/Vol] Ordered By: Ajit Pettit on 02-09-2023 Basophils (Bld) [#/Vol] 0.1 10*3/uL 0.0-0.2 [facility] Basophils/100 WBC Auto (Bld) Ordered By: Ajit Pettit on 02-09-2023 Basophils/100 WBC (Bld) 0.6 % . [facility] Bilirubin.total [Mass/volume ] in Serum or PlasmaOrdered By: Ajit Pettit on 02-09-2023 Bilirubin [Mass/Vol] 0.3 mg/dL 0.3-1.0 [facility] Calcium [Mass/volume] in Ser um or PlasmaOrdered By: Ajit Pettit on 02-09-2023 Calcium [Mass/Vol] 9.3 mg/dL 8.6-10.3 [facility] Carbon dioxide, total [Moles /volume] in Serum or PlasmaOrdered By: Ajit Pettit on 02-09-2023 CO2 [Moles/Vol] 23.8 mmol/L 21.0-31.0 [facility] Chloride [Moles/volume] in S alissa or PlasmaOrdered By: Ajit Pettit on 02-09-2023 Chloride [Moles/Vol] 101 mmol/L 98-107 [facility] Cholesterol [Mass/volume] in Serum or PlasmaOrdered By: Ajit Pettit on 02-09-2023 Cholesterol [Mass/Vol] 166 mg/dL 140-200 [facility] Comment on above: Chol less than 200 m g/dl low riskChol 201-239 mg/dl borderline riskChol 240 mg/dl and greater high risk Cholesterol in LDL Calc [Mas s/Vol]Ordered By: Ajit Pettit on 02-09-2023 Cholesterol in LDL [Mass/Vol] TNP [facility] Comment on above: Test not performed Cholesterol in LDL [Mass/vol ume] in Serum or PlasmaOrdered By: Ajit Pettit on 02-09-2023 Cholesterol in LDL [Mass/Vol] 61 mg/dL 0-100 [facility] Comment on above: LDL ATP III CLASSIFI CATIONLDL less than 100 mg/dL OptimalLDL 100-129 mg/dL Near or above optimalLDL 130-159 mg/dL Borderline highLDL 160-189 mg/dL HighLDL greater than 189 mg/dL Very high Cholesterol in VLDL Calc [Ma ss/Vol]Ordered By: Ajit Pettit on 02-09-2023 Cholesterol in VLDL [Mass/Vol] 97 mg/dL [facility] Creatinine [Mass/volume] in Serum or PlasmaOrdered By: Ajit Pettit on 02-09-2023 Creatinine [Mass/Vol] 0.75 mg/dL 0.60-1.20 [facility] Eosinophils Auto (Bld) [#/Vo l]Ordered By: Ajit Pettit on 02-09-2023 Eosinophils (Bld) [#/Vol] 0.1 10*3/uL 0.0-0.45 [facility] Eosinophils/100 WBC Auto (Bl d)Ordered By: Ajit Pettit on 02-09-2023 Eosinophils/100 WBC (Bld) 0.7 % . [facility] Erythrocyte distribution wid th Auto (RBC) [Ratio]Ordered By: Ajit Pettit on 02-09-2023 Erythrocyte distribution width (RBC) [Ratio] 13.1 % 11.9-15.3 [facility] Globulin Calc (S) [Mass/Vol] Ordered By: Ajit Pettit on 02-09-2023 Globulin (S) [Mass/Vol] 2.3 g/dL [facility] Glucose [Mass/volume] in Ser um or PlasmaOrdered By: Ajit Pettit on 02-09-2023 Glucose [Mass/Vol] 286 mg/dL 70-100 [facility] Comment on above: ADA recommended refe rence rangeRandom Glucose Reference Range is dependent on time and content of last meal. Glucose of more than 200 mg/dL in a nonstressed, ambulatory subject supports the diagnosis of Diabetes Mellitus. Hematocrit Auto (Bld) [Volum e fraction]Ordered By: Ajit Pettit on 02-09-2023 Hematocrit (Bld) [Volume fraction] 39.7 % 34.0-46.4 [facility] Hemoglobin [Mass/volume] in BloodOrdered By: Ajit Pettit on 02-09-2023 Hemoglobin (Bld) [Mass/Vol] 13.1 g/dL 11.8-15.4 [facility] Leukocytes [#/volume] correc cherie for nucleated erythrocytes in Blood by Automated counOrdered By: Ajit Pettit on 02-09-2023 WBC corrected for nucl RBC Auto (Bld) [#/Vol] 13.2 10*3/uL 3.8-11.6 [facility] Lymphocytes Auto (Bld) [#/Vo l]Ordered By: Ajit Pettit on 02-09-2023 Lymphocytes (Bld) [#/Vol] 3.6 10*3/uL 1.00-4.8 [facility] Lymphocytes/100 WBC Auto (Bl d)Ordered By: Ajit Pettit on 02-09-2023 Lymphocytes/100 WBC (Bld) 27.3 % . [facility] MCH Auto (RBC) [Entitic mass ]Ordered By: Ajit Pettit on 02-09-2023 MCH (RBC) [Entitic mass] 29.5 pg 24.7-34.3 [facility] MCHC Auto (RBC) [Mass/Vol]Or dered By: Ajit Pettit on 02-09-2023 MCHC (RBC) [Mass/Vol] 33.1 g/dL 32.0-35.0 [facility] MCV Auto (RBC) [Entitic vol] Ordered By: Ajit Pettit on 02-09-2023 MCV (RBC) [Entitic vol] 89.3 fL 80-100 [facility] Monocytes Auto (Bld) [#/Vol] Ordered By: Ajit Pettit on 02-09-2023 Monocytes (Bld) [#/Vol] 0.9 10*3/uL 0.0-0.8 [facility] Monocytes/100 WBC Auto (Bld) Ordered By: Ajit Pettit on 02-09-2023 Monocytes/100 WBC (Bld) 7.0 % . [facility] Neutrophils Auto (Bld) [#/Vo l]Ordered By: Ajit Pettit on 02-09-2023 Neutrophils (Bld) [#/Vol] 8.5 10*3/uL 1.8-7.7 [facility] Neutrophils/100 WBC Auto (Bl d)Ordered By: Ajit Pettit on 02-09-2023 Neutrophils/100 WBC (Bld) 64.4 % . [facility] No Panel InformationOrdered By: Ajit Pettit on 02-09-2023 Estimated GFR (CKD-EPI) > 60.0 mL/Min [facility] Creatinine Clearance (Chem N/A [facility] Nucleated erythrocytes [Pres ence] in Blood by Automated countOrdered By: Ajit Pettit on 02-09-2023 Nucleated RBC Auto Ql (Bld) 0.0 /100{WBC} 0-0.5 [facility] Platelet mean volume Auto (B ld) [Entitic vol]Ordered By: Ajit Pettit on 02-09-2023 Platelet mean volume (Bld) [Entitic vol] 8.8 fL 6.3-10.7 [facility] Platelets Auto (Bld) [#/Vol] Ordered By: Ajit Pettit on 02-09-2023 Platelets (Bld) [#/Vol] 295 10*3/uL 150-450 [facility] Potassium [Moles/volume] in Serum or PlasmaOrdered By: Ajit Pettit on 02-09-2023 Potassium [Moles/Vol] 4.5 mmol/L 3.5-5.1 [facility] Protein [Mass/volume] in Ser um or PlasmaOrdered By: Ajit Pettit on 02-09-2023 Protein [Mass/Vol] 6.7 g/dL 6.4-8.9 [facility] RBC Auto (Bld) [#/Vol]Ordere d By: Ajit Pettit on 02-09-2023 RBC (Bld) [#/Vol] 4.44 10*6/uL 3.60-5.00 [facility] Serum or plasma albumin/glob ulin mass ratioOrdered By: Ajit Pettit on 02-09-2023 Albumin/Globulin [Mass ratio] 1.9 {ratio} [facility] Serum or plasma anion gap de terminationOrdered By: Ajit Pettit on 02-09-2023 Anion gap [Moles/Vol] 15.7 mmol/L 6.0-15.0 Fi [facility] Serum or plasma high density lipoprotein (HDL) cholesterol measurementOrdered By: Ajit Pettit on 02-09-2023 Cholesterol in HDL [Mass/Vol] 41 mg/dL 35-85 [facility] Comment on above: HDL CHOL ATP-III CLA SSIFICATION Cardiovascular RiskHDL > or equal to 60 mg/dL LOWHDL < 40 mg/dL HIGH Serum or plasma total choles terol/high density lipoprotein (HDL) cholesterol mass ratOrdered By: Ajit Pettit on 02-09-2023 Cholesterol.total/Suellen sterol in HDL [Mass ratio] 4.0 {ratio} <5.0 [facility] Sodium [Moles/volume] in Ser um or PlasmaOrdered By: Ajit Pettit on 02-09-2023 Sodium [Moles/Vol] 136 mmol/L 136-145 [facility] Thyrotropin [Units/volume] i n Serum or PlasmaOrdered By: Ajit Pettit on 02-09-2023 TSH Qn 2.98 m[IU]/L 0.45-5.33 [facility] Triglyceride [Mass/volume] i n Serum or PlasmaOrdered By: Ajit Pettit on 02-09-2023 Triglyceride [Mass/Vol] 485 mg/dL 0-149 [facility] Comment on above: If the triglyceride result is greater than 400, LDLC and related calculations cannot be calculated and resulted.TRIG ATP III CLASSIFICATIONTRIG less than 150 mg/dL NormalTRIG 150-199 mg/dL Borderline highTRIG 200-500 mg/dL High TRIG greater than 500 mg/dL Very highStandard traceable to the Center for Disease Conrtrol and Prevention (CDC) test method. Urea nitrogen [Mass/volume] in Serum or PlasmaOrdered By: Aijt Pettit on 02-09-2023 Urea nitrogen [Mass/Vol] 10 mg/dL 04-27 [facility] Urine culture routineOrdered By: Ajit Pettit on 02-09-2023 Bacteria identified Cx Nom (U) 2 Days [facility] WBC Auto (Bld) [#/Vol]Ordere d By: Ajit Pettit on 02-09-2023 WBC (Bld) [#/Vol] 13.2 10*3/uL 3.8-11.6 [facility] ACETONE SERUMon 01-29-2023 ACETONE Negative Normal NEGATIVE [facility] Comment on above: Performed By: #### A CETON #### [facility] [address] [place] [address] Dr. Vito Grimm CBC AUTO DIFFon 01-29-2023 BASO # 0.1 103/ul Normal 0.0-0.1 [facility] Comment on above: Performed By: #### C BC #### [facility] [address] [place] [address] Dr. Vito Grimm Basophils/100 WBC (Bld) 0.5 % Normal 0.2-2.0 [facility] Comment on above: Performed By: #### C BC #### [facility] [address] [place] [address] Dr. Vito Grimm EO # 0.1 103/ul Normal 0.0-0.7 [facility] Comment on above: Performed By: #### C BC #### [facility] [address] [place] [address] Dr. Vito Grimm Eosinophils/100 WBC (Bld) 0.7 % Critically low 0.9-7.0 [facility] Comment on above: Performed By: #### C BC #### [facility] [address] [place] [address] Dr. Vito Grimm Erythrocyte distribution width (RBC) [Ratio] 12.9 % Normal 11.0-15.0 [facility] Comment on above: Performed By: #### C BC #### [facility] [address] [place] [address] Dr. Vito Grimm Hematocrit (Bld) [Volume fraction] 39.0 % Normal 36.0-48.0 [facility] Comment on above: Performed By: #### C BC #### [facility] [address] [place] [address] Dr. Vito Grimm Hemoglobin (Bld) [Mass/Vol] 13.1 g/dL Normal 12.0-16.0 [facility] Comment on above: Performed By: #### C BC #### [facility] [address] [place] [address] Dr. Vito Grimm IG # 0.11 10e3/ul Critically high 0.00-0.03 [facility] Comment on above: Performed By: #### C BC #### [facility] [address] [place] [address] Dr. Vito Grimm IG % 0.8 % Critically high 0.0-0.5 [facility] Comment on above: Performed By: #### C BC #### [facility] [address] [place] [address] Dr. Vito Grimm LYMPH # 4.6 103/ul Critically high 1.2-3.8 [facility] Comment on above: Performed By: #### C BC #### [facility] [address] [place] [address] Dr. Vito Grimm Lymphocytes/100 WBC (Bld) 34.4 % Normal 20.5-60.0 [facility] Comment on above: Performed By: #### C BC #### [facility] [address] [place] [address] Dr. Vito Grimm MANUAL DIFF REQ NO Normal [facility] Comment on above: Performed By: #### C BC #### [facility] [address] [place] [address] Dr. Vito Grimm MCH (RBC) [Entitic mass] 29.9 pg Normal 26.7-34.0 [facility] Comment on above: Performed By: #### C BC #### [facility] [address] [place] [address] Dr. Vito Grimm MCHC (RBC) [Mass/Vol] 33.6 g/dL Normal 29.9-35.2 [facility] Comment on above: Performed By: #### C BC #### [facility] [address] [place] [address] Dr. Vito Grimm MCV (RBC) [Entitic vol] 89.0 fL Normal 81.0-99.0 [facility] Comment on above: Performed By: #### C BC #### [facility] [address] [place] [address] Dr. Vito Grimm MONO # 1.0 103/ul Critically high 0.3-0.8 [facility] Comment on above: Performed By: #### C BC #### [facility] [address] [place] [address] Dr. Vito Grimm Monocytes/100 WBC (Bld) 7.3 % Normal 1.7-12.0 [facility] Comment on above: Performed By: #### C BC #### [facility] [address] [place] [address] Dr. Vito Grimm NEUT # 7.5 103/ul Critically high 1.4-6.5 [facility] Comment on above: Performed By: #### C BC #### [facility] [address] [place] [address] Dr. Vito Grimm Neutrophils/100 WBC (Bld) 56.3 % Normal 43.0-75.0 [facility] Comment on above: Performed By: #### C BC #### [facility] [address] [place] [address] Dr. Vito Grimm Platelet mean volume (Bld) [Entitic vol] 9.6 fL Normal 9.5-13.5 [facility] Comment on above: Performed By: #### C BC #### [facility] [address] [place] [address] Dr. Vito Grimm PLT 272 103/ul Normal 150-[address] [facility] Comment on above: Performed By: #### C BC #### [facility] [address] [place] [address] Dr. Vito Grimm RBC 4.38 106/ul Normal 4.20-5.[address] [facility] Comment on above: Performed By: #### C BC #### [facility] [address] [place] [address] Dr. Vito Grimm WBC 13.4 103/ul Critically high 4.0-11.0 [facility] Comment on above: Performed By: #### C BC #### [facility] [address] [place] [address] Dr. Vito Grimm ER URINE PROFILEon 3 Bilirubin Ql (U) Negative Normal NEGATIVE [facility] Comment on above: Performed By: #### E RUR #### [facility] [address] [place] [address] Dr. Vito Grimm Clarity (U) SL CLOUDY Abnormal CLEAR [facility] Comment on above: Performed By: #### E RUR #### [facility] [address] [place] [address] Dr. Vito Grimm Color (U) LT. YELLOW Normal YELLOW [facility] Comment on above: Performed By: #### E RUR #### [facility] [address] [place] [address] Dr. Vito ELIZABETH A micrscopic examina tion will be performed if indicated. Normal [facility] Comment on above: Performed By: #### E RUR #### [facility] [address] [place] [address] Dr. Vito Grimm Glucose Ql (U) >1000 Abnormal NEGATIVE [facility] Comment on above: Performed By: #### E RUR #### [facility] [address] [place] [address] Dr. Vito Grimm Hemoglobin Ql (U) Negative Normal NEGATIVE [facility] Comment on above: Performed By: #### E RUR #### [facility] [address] [place] [address] Dr. Vito rGimm Ketones Ql (U) Negative Normal NEGATIVE [facility] Comment on above: Performed By: #### E RUR #### [facility] [address] [place] [address] Dr. Vito Grimm LEUKOCYTES Negative Normal NEGATIVE [facility] Comment on above: Performed By: #### E RUR #### [facility] [address] [place] [address] Dr. Vito Grimm Nitrite Ql (U) Negative Normal NEGATIVE [facility] Comment on above: Performed By: #### E RUR #### [facility] [address] [place] [address] Dr. Vito Grimm pH (U) 5.5 [pH] Normal 5-9 [facility] Comment on above: Performed By: #### E RUR #### [facility] [address] [place] [address] Dr. Vito Grimm SPEC GRAVITY 1.010 Normal 1.005-<=1. 025 [facility] Comment on above: Performed By: #### E RUR #### [facility] [address] [place] [address] Dr. Vito Grimm UA PROTEIN Negative Normal NEGATIVE/ TRACE [facility] Comment on above: Performed By: #### E RUR #### [facility] [address] [place] [address] Dr. iVto Grimm UR MICRO IND NOT INDICATED Normal [facility] Comment on above: Performed By: #### E RUR #### [facility] [address] [place] [address] Dr. Vito Grimm Urobilinogen Qn (U) 0.2 {Helen'U}/dL Normal 0.2 - 1. 0 [facility] Comment on above: Performed By: #### E RUR #### [facility] [address] [place] [address] Dr. Vito Grimm POINT OF CARE GLUCOSEon 01-03 Glucose [Mass/Vol] 279 mg/dL Critically high 74-[address] [facility] Comment on above: Performed By: #### P OCGLUC #### [facility] [address] [place] [address] Dr. Vito Grimm PROF 14(COMP METB)on 023 Albumin [Mass/Vol] 3.5 g/dL Normal 3.4-5.0 [facility] Comment on above: Performed By: #### C MATHIEU, HSTROPN #### [facility] [address] [address] [address] Vito Grimm Albumin/Globulin [Mass ratio] 1.0 {ratio} Normal [facility] Comment on above: Performed By: #### C MATHIEU, HSTROPN #### [facility] [address] [address] [address] Vito Grimm ALP [Catalytic activity/Vol] 85 U/L Normal 46-116 [facility] Comment on above: Performed By: #### C MATHIEU, HSTROPN #### [facility] [address] [place] [address] Dr. Vito Grimm ALT [Catalytic activity/Vol] 28 U/L Normal 14-59 [facility] Comment on above: Performed By: #### C MATHIEU, HSTROPN #### [facility] [address] [place] [address] Dr. Vito Grimm Anion gap [Moles/Vol] 15.9 mmol/L Normal [facility] Comment on above: Performed By: #### C MATHIEU, HSTROPN #### [facility] [address] [place] [address] Dr. Vito Grimm AST [Catalytic activity/Vol] 16 U/L Normal 15-37 [facility] Comment on above: Performed By: #### C MATHIEU, HSTROPN #### [facility] [address] [place] [address] Dr. Vito Grimm Bilirubin [Mass/Vol] 0.2 mg/dL Normal 0.2-1.0 [facility] Comment on above: Performed By: #### C MATHIEU, HSTROPN #### [facility] [address] [place] [address] Dr. Vito Grimm Calcium [Mass/Vol] 8.8 mg/dL Normal 8.5-10.1 [facility] Comment on above: Performed By: #### C MATHIEU, HSTROPN #### [facility] [address] [address] [address] Vito Grimm Chloride [Moles/Vol] 96 mmol/L Critically low 98-107 [facility] Comment on above: Performed By: #### C MP, HSTROPN #### [facility] [address] [address] [address] Vito Grimm CO2 [Moles/Vol] 24.1 mmol/L Normal 21.0-32.0 [facility] Comment on above: Performed By: #### C MP, HSTROPN #### [facility] [address] [address] [address] Vito Grimm Creatinine [Mass/Vol] 0.85 mg/dL Normal 0.55-1.02 [facility] Comment on above: Performed By: #### C MP, HSTROPN #### [facility] [address] [place] [address] Dr. Vito Grimm EGFR-AF TURKMEN >60 Normal >=60 [facility] Comment on above: Performed By: #### C MP, HSTROPN #### [facility] [address] [place] [address] Dr. Vito Grimm EGFR-NON AF TURKMEN >60 Normal >=60 [facility] Comment on above: Performed By: #### C MP, HSTROPN #### [facility] [address] [place] [address] Dr. Vito Grimm Globulin (S) [Mass/Vol] 3.6 g/dL Normal [facility] Comment on above: Performed By: #### C MP, HSTROPN #### [facility] [address] [place] [address] Dr. Vito Grimm Glucose [Mass/Vol] 350 mg/dL Critically high 74-106 [facility] Comment on above: Performed By: #### C MP, HSTROPN #### [facility] [address] [place] [address] Dr. Vito Grimm Potassium [Moles/Vol] 4.0 mmol/L Normal 3.5-5.1 [facility] Comment on above: Performed By: #### C MP, HSTROPN #### [facility] [address] [place] [address] Dr. Vito Grimm Protein [Mass/Vol] 7.1 g/dL Normal 6.4-8.2 [facility] Comment on above: Performed By: #### C MP, HSTROPN #### [facility] [address] [place] [address] Dr. Vito Grimm Sodium [Moles/Vol] 132 mmol/L Critically low 136-[address] [facility] Comment on above: Performed By: #### C MP, HSTROPN #### [facility] [address] [place] [address] Dr. Vito Grimm Urea nitrogen [Mass/Vol] 10.0 mg/dL Normal 7.0-18.0 [facility] Comment on above: Performed By: #### C MP, HSTROPN #### [facility] [address] [place] [address] Dr. Vito Grimm Urea nitrogen/Creatinine [Mass ratio] 11.8 mg/mg Normal [facility] Comment on above: Performed By: #### C MP, HSTROPN #### [facility] [address] [place] [address] Dr. Vito Grimm TROPONIN, HIGH SENSITIVITYon 01-29-2023 HSTROP <4.0 Normal 4.0-51.3 [facility] Comment on above: Result Comment: CUT- OFF POINTS HAVE BEEN ESTABLISHED BASED ON THE FOURTH UNIVERSAL DEFINITIONS OF MYOCARDIAL INFARCTION. THE UPPER REFERENCE LIMIT (URL) OF TROPONIN, DEFINED THE 99TH PERCENTILE OF cTnI DISTRIBUTION IN A REFERENCE POPULATION, HAS BEEN CONFIRMED THE DECISION THRESHOLD FOR [place] DIAGNOSIS. Performed By: #### C MP, HSTROPN #### [facility] [address] [place] [address] Dr. Vito Grimm HCG ( test) Funmi jackson Ql (U)Ordered By: Kyler Miramontes on 11-18-2022 HCG ( test) Ql (U) Negative [facility] CBC AUTO DIFFon 11-12-2022 BASO # 0.1 103/ul Normal 0.0-0.1 [facility] Comment on above: Performed By: #### C MATHIEU, HSTROPN #### [facility] [address] [place] [address] Dr. Vito Grimm Basophils/100 WBC (Bld) 0.6 % Normal 0.2-2.0 [facility] Comment on above: Performed By: #### C MP, HSTROPN #### [facility] [address] [place] [address] Dr. Vito Grimm EO # 0.2 103/ul Normal 0.0-0.7 [facility] Comment on above: Performed By: #### C MATHIEU, HSTROPN #### [facility] [address] [place] [address] Dr. Vito Grimm Eosinophils/100 WBC (Bld) 1.1 % Normal 0.9-7.0 [facility] Comment on above: Performed By: #### C MATHIEU HSTROPN #### [facility] [address] [place] [address] Dr. Vito Grimm Erythrocyte distribution width (RBC) [Ratio] 12.6 % Normal 11.0-15.0 [facility] Comment on above: Performed By: #### C MATHIEU HSTROPN #### [facility] [address] [place] [address] Dr. Vito Grimm Hematocrit (Bld) [Volume fraction] 39.7 % Normal 36.0-48.0 [facility] Comment on above: Performed By: #### C MATHIEU, HSTROPN #### [facility] [address] [place] [address] Dr. Vito Grimm Hemoglobin (Bld) [Mass/Vol] 12.9 g/dL Normal 12.0-16.0 [facility] Comment on above: Performed By: #### C MATHIEU, HSTROPN #### [facility] [address] [place] [address] Dr. Vito Grimm IG # 0.07 10e3/ul Critically high 0.00-0.03 [facility] Comment on above: Performed By: #### C MATHIEU, HSTROPN #### [facility] [address] [address] [address] Vito Grimm IG % 0.5 % Normal 0.0-0.5 [facility] Comment on above: Performed By: #### C MP, HSTROPN #### [facility] [address] [place] [address] Dr. Vito Grimm LYMPH # 5.3 103/ul Critically high 1.2-3.8 [facility] Comment on above: Performed By: #### C MP, HSTROPN #### [facility] [address] [place] [address] Dr. Vito Grimm Lymphocytes/100 WBC (Bld) 38.4 % Normal 20.5-60.0 [facility] Comment on above: Performed By: #### C MP, HSTROPN #### [facility] [address] [place] [address] Dr. Vito Grimm MANUAL DIFF REQ NO Normal [facility] Comment on above: Performed By: #### C MP, HSTROPN #### [facility] [address] [place] [address] Dr. Vito Grimm MCH (RBC) [Entitic mass] 29.7 pg Normal 26.7-34.0 [facility] Comment on above: Performed By: #### C MP, HSTROPN #### [facility] [address] [place] [address] Dr. Vito Grimm MCHC (RBC) [Mass/Vol] 32.5 g/dL Normal 29.9-35.2 [facility] Comment on above: Performed By: #### C MP, HSTROPN #### [facility] [address] [place] [address] Dr. Vito Grimm MCV (RBC) [Entitic vol] 91.5 fL Normal 81.0-99.0 [facility] Comment on above: Performed By: #### C MP, HSTROPN #### [facility] [address] [place] [address] Dr. Vito Grimm MONO # 1.0 103/ul Critically high 0.3-0.8 [facility] Comment on above: Performed By: #### C MATHIEU, HSTROPN #### [facility] [address] [place] [address] Dr. Vito Grimm Monocytes/100 WBC (Bld) 7.3 % Normal 1.7-12.[address] [facility] Comment on above: Performed By: #### C MP, HSTROPN #### [facility] [address] [place] [address] Dr. Vito Grimm NEUT # 7.2 103/ul Critically high 1.4-6.5 [facility] Comment on above: Performed By: #### C MATHIEU, HSTROPN #### [facility] [address] [place] [address] Dr. Vito Grimm Neutrophils/100 WBC (Bld) 52.1 % Normal 43.0-75.0 [facility] Comment on above: Performed By: #### C MATHIEU, HSTROPN #### [facility] [address] [place] [address] Dr. Vito Grimm Platelet mean volume (Bld) [Entitic vol] 9.4 fL Critically low 9.5-13.5 [facility] Comment on above: Performed By: #### C MATHIEU, HSTROPN #### [facility] [address] [place] [address] Dr. Vito Grimm PLT 297 103/ul Normal 150-[address] [facility] Comment on above: Performed By: #### C MATHIEU, HSTROPN #### [facility] [address] [place] [address] Dr. Vito Grimm RBC 4.34 106/ul Normal 4.20-5.40 [facility] Comment on above: Performed By: #### C MATHIEU, HSTROPN #### [facility] [address] [place] [address] Dr. Vito Grimm WBC 13.9 103/ul Critically high 4.0-11.0 [facility] Comment on above: Performed By: #### C MATHIEU, HSTROPN #### [facility] [address] [place] [address] Dr. Vito Grimm DEPAKENE/ VALPROIC ACIDon DEPAKENE 55.9 ug/ml Normal 50.0-100.0 [facility] Comment on above: Performed By: #### V ALP #### [facility] [address] [place] [address] Dr. Vito Grimm LACTATE/LACTIC ACIDon 2022 Lactate [Moles/Vol] 3.6 mmol/L Critically high 0.4-1.9 [facility] Comment on above: Performed By: #### C MATHIEU HSTROPN #### [facility] [address] [place] [address] Dr. Vito Grimm PROF 14(COMP METB)on 023 Albumin [Mass/Vol] 3.6 g/dL Normal 3.4-5.0 [facility] Comment on above: Performed By: #### C MATHIEU HSTROPN #### [facility] [address] [place] [address] Dr. Vito Grimm Albumin/Globulin [Mass ratio] 1.1 {ratio} Normal [facility] Comment on above: Performed By: #### C MATHIEU HSTROPN #### [facility] [address] [place] [address] Dr. Vito Grimm ALP [Catalytic activity/Vol] 57 U/L Normal 46-116 [facility] Comment on above: Performed By: #### C MATHIEU HSTROPN #### [facility] [address] [place] [address] Dr. Vito Grimm ALT [Catalytic activity/Vol] 23 U/L Normal 14-[address] [facility] Comment on above: Performed By: #### C MATHIEU HSTROPN #### [facility] Laboratory [address] [place] [address] Dr. Vito Grimm Anion gap [Moles/Vol] 17.0 mmol/L Normal [facility] Comment on above: Performed By: #### C MATHIEU HSTROPN #### [facility] Laboratory [address] [place] [address] Dr. Vito Grimm AST [Catalytic activity/Vol] 16 U/L Normal 15-[address] [facility] Comment on above: Performed By: #### C MATHIEU, HSTROPN #### [facility] Laboratory [address] [address] [address] Vito Grimm Bilirubin [Mass/Vol] 0.1 mg/dL Critically low 0.2-1.0 [facility] Comment on above: Performed By: #### C MATHIEU, HSTROPN #### [facility] Laboratory [address] [place] [address] Dr. Vito Grimm Calcium [Mass/Vol] 8.8 mg/dL Normal 8.5-10.[address] [facility] Comment on above: Performed By: #### C MATHIEU, HSTROPN #### [facility] Laboratory [address] [place] [address] Dr. Vito Grimm Chloride [Moles/Vol] 101 mmol/L Normal 98-[address] [facility] Comment on above: Performed By: #### C MATHIEU, HSTROPN #### [facility] Laboratory [address] [place] [address] Dr. Vito Grimm CO2 [Moles/Vol] 23.5 mmol/L Normal 21.0-32.[address] [facility] Comment on above: Performed By: #### C MATHIEU, HSTROPN #### [facility] Laboratory [address] [place] [address] Dr. Vito Grimm Creatinine [Mass/Vol] 0.72 mg/dL Normal 0.55-1.[address] [facility] Comment on above: Performed By: #### C MATHIEU, HSTROPN #### [facility] Laboratory [address] [place] [address] Dr. Vito Grimm EGFR-AF TURKMEN >60 Normal >=[address] [facility] Comment on above: Performed By: #### C MATHIEU, HSTROPN #### [facility] Laboratory [address] [place] [address] Dr. Vito Grimm EGFR-NON AF TURKMEN >60 Normal >=[address] [facility] Comment on above: Performed By: #### C MATHIEU, HSTROPN #### [facility] Laboratory [address] [address] [address] Vito Grimm Globulin (S) [Mass/Vol] 3.4 g/dL Normal [facility] Comment on above: Performed By: #### C MP, HSTROPN #### [facility] Laboratory [address] [address] [address] Vito Grimm Glucose [Mass/Vol] 146 mg/dL Critically high 74-106 [facility] Comment on above: Performed By: #### C MP, HSTROPN #### [facility] Laboratory [address] [address] [address] Vito Grimm Potassium [Moles/Vol] 4.5 mmol/L Normal 3.5-5.1 [facility] Comment on above: Performed By: #### C MP, HSTROPN #### [facility] Laboratory [address] [place] [address] Dr. Vito Grimm Protein [Mass/Vol] 7.0 g/dL Normal 6.4-8.2 [facility] Comment on above: Performed By: #### C MP, HSTROPN #### [facility] Laboratory [address] [address] [address] Vito Grimm Sodium [Moles/Vol] 137 mmol/L Normal 136-145 [facility] Comment on above: Performed By: #### C MP, HSTROPN #### [facility] Laboratory [address] [address] [address] Vito Grimm Urea nitrogen [Mass/Vol] 11.0 mg/dL Normal 7.0-18.0 [facility] Comment on above: Performed By: #### C MP, HSTROPN #### [facility] Laboratory [address] [address] [address] Vito Grimm Urea nitrogen/Creatinine [Mass ratio] 15.3 mg/mg Normal [facility] Comment on above: Performed By: #### C MP, HSTROPN #### [facility] Laboratory [address] [address] [address] Vito Grimm Albumin [Mass/volume] in Ser um or PlasmaOrdered By: Ajit Pettit on 11-05-2022 Albumin [Mass/Vol] 4.2 g/dL 3.2-5.5 [facility] Basophils Auto (Bld) [#/Vol] Ordered By: Ajit Pettit on 11-05-2022 Basophils (Bld) [#/Vol] 0.1 10*3/uL 0.0-0.2 [facility] Basophils/100 WBC Auto (Bld) Ordered By: Ajit Pettit on 11-05-2022 Basophils/100 WBC (Bld) 0.8 % . [facility] Cholesterol [Mass/volume] in Serum or PlasmaOrdered By: Ajit Pettit on 11-05-2022 Cholesterol [Mass/Vol] 174 mg/dL 140-200 [facility] Comment on above: Chol less than 200 m g/dl low riskChol 201-239 mg/dl borderline riskChol 240 mg/dl and greater high risk Cholesterol in LDL Calc [Mas s/Vol]Ordered By: Ajit Pettit on 11-05-2022 Cholesterol in LDL [Mass/Vol] 66 mg/dL 0-100 [facility] Comment on above: LDL ATP III CLASSIFI CATIONLDL less than 100 mg/dL OptimalLDL 100-129 mg/dL Near or above optimalLDL 130-159 mg/dL Borderline highLDL 160-189 mg/dL HighLDL greater than 189 mg/dL Very high Cholesterol in VLDL Calc [Ma ss/Vol]Ordered By: Ajit Pettit on 11-05-2022 Cholesterol in VLDL [Mass/Vol] 66 mg/dL [facility] Creatinine and Glomerular fi ltration rate.predicted panel (S/P/Bld)Ordered By: Ajit Pettit on 11-05-2022 Creatinine [Mass/Vol] 0.57 mg/dL 0.44-1.03 [facility] Eosinophils Auto (Bld) [#/Vo l]Ordered By: Ajit Pettit on 11-05-2022 Eosinophils (Bld) [#/Vol] 0.1 10*3/uL 0.0-0.45 [facility] Eosinophils/100 WBC Auto (Bl d)Ordered By: Ajit Pettit on 11-05-2022 Eosinophils/100 WBC (Bld) 0.7 % . [facility] Erythrocyte distribution wid th Auto (RBC) [Ratio]Ordered By: Ajit Pettit on 11-05-2022 Erythrocyte distribution width (RBC) [Ratio] 13.5 % 11.9-15.3 [facility] Estimated glomerular filtrat ion rate (GFR) non- AmericanOrdered By: Ajit Pettit on 11-05-2022 GFR/1.73 sq M.predicted among non-blacks MDRD (S/P/Bld) [Vol rate/Area] > 60 mL/Min [facility] Globulin Calc (S) [Mass/Vol] Ordered By: Ajit Pettit on 11-05-2022 Globulin (S) [Mass/Vol] 2.6 g/dL [facility] Glucose mean value [Mass/vol ume] in Blood Estimated from glycated hemoglobinOrdered By: Ajit Pettit on 11-05-2022 Average glucose Estimated from glycated hemoglobin (Bld) [Mass/Vol] 143 mg/dL [facility] HPV 16+18+31+33+35+39+45+51+ 52+56+58+59+68 DNA cervix probe + signal amplificOrdered By: Ajit Pettit on 11-05-2022 HPV 16+18+31+33+35+39+45+51 +52+56+58+59+68 DNA Probe+sig amp Ql (Cvx) Positive Negative [facility] Comment on above: This nucleic acid am plification test detects fourteen high-risk HPV types (16,18,31,33,35,39,45,51,52,56,58,59,66,68)without differentiation. Hematocrit Auto (Bld) [Volum e fraction]Ordered By: Ajit Pettit on 11-05-2022 Hematocrit (Bld) [Volume fraction] 40.1 % 34.0-46.4 [facility] Hemoglobin A1c percentageOrd ered By: Ajit Pettit on 11-05-2022 HbA1c (Bld) [Mass fraction] 6.6 % 4.3-5.6 [facility] Comment on above: Increased risk for d iabetes: 5.7 - 6.4diabetes: >6.4glycemic control for adults with diabetes: <7.0 Hemoglobin [Mass/volume] in BloodOrdered By: Ajit Pettit on 11-05-2022 Hemoglobin (Bld) [Mass/Vol] 13.2 g/dL 11.8-15.4 [facility] Laboratory - Microbiology an d Antimicrobial susceptibilityOrdered By: Ajit Pettit on 11-05-2022 N. gonorrhoeae DNA NAYELY+probe Ql (Unsp spec) Negative Negative [facility] Comment on above: Performed at: =[address] [id number] Director: Breanna Clark MD, Phone: [phone] Leukocytes [#/volume] correc cherie for nucleated erythrocytes in Blood by Automated counOrdered By: Ajit Pettit on 11-05-2022 WBC corrected for nucl RBC Auto (Bld) [#/Vol] 13.7 10*3/uL 3.8-11.6 [facility] Lymphocytes Auto (Bld) [#/Vo l]Ordered By: Ajit Pettit on 11-05-2022 Lymphocytes (Bld) [#/Vol] 5.1 10*3/uL 1.00-4.8 [facility] Lymphocytes/100 WBC Auto (Bl d)Ordered By: Ajit Pettit on 11-05-2022 Lymphocytes/100 WBC (Bld) 37.3 % . [facility] MCH Auto (RBC) [Entitic mass ]Ordered By: Ajit Pettit on 11-05-2022 MCH (RBC) [Entitic mass] 29.5 pg 24.7-34.3 [facility] MCHC Auto (RBC) [Mass/Vol]Or dered By: Ajit Pettit on 11-05-2022 MCHC (RBC) [Mass/Vol] 32.8 g/dL 32.0-35.0 [facility] MCV Auto (RBC) [Entitic vol] Ordered By: Ajit Pettit on 11-05-2022 MCV (RBC) [Entitic vol] 90.0 fL 80-100 [facility] Microcytes LM Ql (Bld)Ordere d By: Ajit Pettit on 02-02-2023 Microcytes Ql (Bld) Slight [facility] Monocytes Auto (Bld) [#/Vol] Ordered By: Ajit Pettit on 11-05-2022 Monocytes (Bld) [#/Vol] 1.1 10*3/uL 0.0-0.8 [facility] Monocytes/100 WBC Auto (Bld) Ordered By: Ajit Pettit on 11-05-2022 Monocytes/100 WBC (Bld) 8.3 % . [facility] Neutrophils Auto (Bld) [#/Vo l]Ordered By: Ajit Pettit on 11-05-2022 Neutrophils (Bld) [#/Vol] 7.3 10*3/uL 1.8-7.7 [facility] Neutrophils/100 WBC Auto (Bl d)Ordered By: Ajit Pettit on 11-05-2022 Neutrophils/100 WBC (Bld) 52.9 % . [facility] No Panel InformationOrdered By: Ajit Pettit on 11-05-2022 25-Hydroxy Vitamin D Total 28.8 ng/mL 30-100 [facility] Comment on above: VITAMIN D STATUS 25( OH)VITAMIN D RANGE (ng/mL) Deficient <20 Insufficient 20 to <30Sufficient 30 to 100Reference: Jovanni MF,Dominique ARORA, Gillian NINA, et al. Evaluation,treatment, and prevention of vitamin D deficiency; an Endocrine Society clinical practice guideline. JCEM. 2010; 96(7):1911-30. Luz Elena albicans (NAYELY) Negative Negative [facility] Comment on above: This test was develo ped and its performance characteristicsdetermined by [facility]. It has not been cleared orapproved by the Food and Drug Administration. Luz Elena glabrata (NAYELY) Negative Negative [facility] Comment on above: This test was develo ped and its performance characteristicsdetermined by [facility]. It has not been cleared orapproved by the Food and Drug Administration. Chlamydia trachomatis (NAYELY) (LAB) Negative Negative [facility] Estimated GFR () > 60 mL/Min [facility] Comment on above: GFR estimated refere nce range: According to KDOQI guidelines, <60 ml/min/1.73m2 is sufficient to diagnose a patient with chronic kidney disease. Human Papilloma Virus Type 16 Negative Negative [facility] Human Papilloma Virus Type 18/45 Negative Negative [facility] Comment on above: Performed at: =G - [facility] [address] [place], [place] [id number] Director: Breanna Clark MD, Phone: [phone] at: WB - [facility] [id number] Director: Breanna Clark MD, Phone: [phone] IG Pap w/Ct-Ng Age Based (Off-Site) Note . [facility] Comment on above: TESTS RESULT FLAG UN ITS REF RANGE LAB - Clinician Provided Cytology Information No. of containers..01 ThinPrep VialAge Lissetho CORRYOG Monisha... 30-65 FLAG LEGEND: L-Low Normal,H-High Normal,LL-Alert Low,HH-Alert High <-Panic Low,>-Panic High,A-Abnormal,AA-Critical Abnormal ------Performed at:01 =G [facility] [place] [address] [facility] [place] [address] Breanna Clark MD, Pharmacy Creatinine Clearance (Chem N/A [facility] Thin Prep Pap Comment Note . [facility] Comment on above: TESTS RESULT FLAG UN ITS REF RANGE LAB -DIAGNOSIS: 02 NEGATIVE FOR INTRAEPITHELIAL LESION OR MALIGNANCY. THIS SPECIMEN WAS RESCREENED PART OF OUR [employer] PROGRAM.Specimen adequacy: 02 Satisfactory for evaluation. Endocervical and/or squamous metaplastic cells (endocervical component) are present.Performed by: 02 Larry Mirza, Power Plant Superintendent ([facility])QC reviewed by: 02 Sammie Thomason, Supervisory Power Plant Superintendent ([facility]). 02Note: Note 02 The Pap [...] Low,>-Panic High,A-Abnormal,AA-Critical Abnormal ------Performed at:02 WB [facility] [address] [place] [address] Breanna Clark MD, Trichomonas vaginalis (NAYELY) Negative Negative [facility] Nucleated erythrocytes [Pres ence] in Blood by Automated countOrdered By: Ajit Pettit on 11-05-2022 Nucleated RBC Auto Ql (Bld) 0.1 /100{WBC} 0-0.5 [facility] Platelet adequacy [Presence] in Blood by Light microscopyOrdered By: Ajit Pettit on 11-05-2022 Platelets LM Ql (Bld) Normal Normal [facility] Platelet mean volume Auto (B ld) [Entitic vol]Ordered By: Ajit Pettit on 11-05-2022 Platelet mean volume (Bld) [Entitic vol] 9.1 fL 6.3-10.7 [facility] Platelet morphology finding [Identifier] in BloodOrdered By: Ajit Pettit on 11-05-2022 Platelet morphology finding Nom (Bld) N/A [facility] Platelets Auto (Bld) [#/Vol] Ordered By: Ajit Pettit on 11-05-2022 Platelets (Bld) [#/Vol] 304 10*3/uL 150-450 [facility] Platelets Large [Presence] i n Blood by Light microscopyOrdered By: Ajit Pettit on 11-05-2022 Platelets Large LM Ql (Bld) Slight [facility] Polychromasia [Presence] in Blood by Light microscopyOrdered By: Ajit Pettit on 11-05-2022 Polychromasia LM Ql (Bld) Slight [facility] Protein [Mass/volume] in Ser um or PlasmaOrdered By: Ajit Pettit on 11-05-2022 Protein [Mass/Vol] 6.8 g/dL 6.1-7.9 [facility] RBC Auto (Bld) [#/Vol]Ordere d By: Ajit Pettit on 11-05-2022 RBC (Bld) [#/Vol] 4.46 10*6/uL 3.60-5.00 [facility] RBC morphologyOrdered By: Cole Pettit on 11-05-2022 RBC morphology finding Nom (Bld) N/A [facility] Serum or plasma alanine george otransferase measurement without P-5'-P (enzymatic activiOrdered By: Ajit Pettit on 11-05-2022 ALT No additional P-5'-P [Catalytic activity/Vol] 16 U/L 10-60 [facility] Serum or plasma albumin/glob ulin mass ratioOrdered By: Ajit Pettit on 11-05-2022 Albumin/Globulin [Mass ratio] 1.6 {ratio} [facility] Serum or plasma alkaline lalo sphatase measurement (enzymatic activity/volume)Ordered By: Ajit Pettit on 11-05-2022 ALP [Catalytic activity/Vol] 52 U/L 32-92 [facility] Serum or plasma anion gap de terminationOrdered By: Ajit Pettit on 11-05-2022 Anion gap [Moles/Vol] 14.2 mmol/L 6.0-15.0 [facility] Serum or plasma aspartate am inotransferase measurement (enzymatic activity/volume)Ordered By: Ajit Pettit on 11-05-2022 AST [Catalytic activity/Vol] 20 U/L 10-42 [facility] Serum or plasma calcium ashwiin urement (mass/volume)Ordered By: Ajit Pettit on 11-05-2022 Calcium [Mass/Vol] 9.3 mg/dL 8.2-10.2 [facility] Serum or plasma chloride jett surement (moles/volume)Ordered By: Ajit Pettit on 11-05-2022 Chloride [Moles/Vol] 99 mmol/L 95-114 [facility] Serum or plasma glucose ashwini urement (mass/volume)Ordered By: Ajit Pettit on 11-05-2022 Glucose [Mass/Vol] 96 mg/dL 70-100 [facility] Comment on above: ADA recommended refe rence rangeRandom Glucose Reference Range is dependent on time and content of last meal. Glucose of more than 200 mg/dL in a nonstressed, ambulatory subject supports the diagnosis of Diabetes Mellitus. Serum or plasma high density lipoprotein (HDL) cholesterol measurementOrdered By: Ajit Pettit on 11-05-2022 Cholesterol in HDL [Mass/Vol] 42 mg/dL 35-85 [facility] Comment on above: HDL CHOL ATP-III CLA SSIFICATION Cardiovascular RiskHDL > or equal to 60 mg/dL LOWHDL < 40 mg/dL HIGH Serum or plasma potassium me asurement (moles/volume)Ordered By: Ajit Pettit on 11-05-2022 Potassium [Moles/Vol] 4.3 mmol/L 3.5-5.1 [facility] Serum or plasma sodium measu rement (moles/volume)Ordered By: Ajit Pettit on 11-05-2022 Sodium [Moles/Vol] 132 mmol/L 136-146 [facility] Serum or plasma total biliru bin measurement (mass/volume)Ordered By: Ajit Pettit on 11-05-2022 Bilirubin [Mass/Vol] 0.3 mg/dL 0.3-1.2 [facility] Serum or plasma total carbon dioxide measurement (moles/volume)Ordered By: Ajit Pettit on 11-05-2022 CO2 [Moles/Vol] 23.1 mmol/L 22.0-30.0 [facility] Serum or plasma total choles terol/high density lipoprotein (HDL) cholesterol mass ratOrdered By: Ajit Pettit on 11-05-2022 Cholesterol.total/Suellen sterol in HDL [Mass ratio] 4.1 {ratio} <5.0 [facility] Serum or plasma urea nitroge n measurement (mass/volume)Ordered By: Ajit Pettit on 11-05-2022 Urea nitrogen [Mass/Vol] 7 mg/dL 9-23 [facility] TSH DL <= 0.005 mIU/L QnOrde red By: Ajit Pettit on 11-05-2022 TSH Qn 4.07 m[IU]/L 0.45-5.33 [facility] Triglyceride [Mass/volume] i n Serum or PlasmaOrdered By: Ajit Pettit on 11-05-2022 Triglyceride [Mass/Vol] 330 mg/dL 35-149 [facility] Comment on above: TRIG ATP III CLASSIF ICATIONTRIG less than 150 mg/dL NormalTRIG 150-199 mg/dL Borderline highTRIG 200-500 mg/dL High TRIG greater than 500 mg/dL Very highStandard traceable to the Center for Disease Conrtrol and Prevention (CDC) test method. Urine culture routineOrdered By: Ajit Pettit on 11-05-2022 Bacteria identified Cx Nom (U) No Growth 2 Days [facility] Vaginal fluid Atopobium vagi rich DNA detection by probe and target amplification methoOrdered By: Ajit Pettit on 11-05-2022 A. vaginae DNA NAYELY+probe Ql (Vag fld) Low - 0 Score . [facility] Vaginal fluid Megasphaera sp ecies type 1 DNA detection by probe and target amplificatOrdered By: Ajit Pettit on 11-05-2022 Megasphaera sp type 1 DNA NAYELY+probe Ql (Vag fld) Low - 0 Score . [facility] Comment on above: Calculate total scor e by adding the 3 individual bacterialvaginosis (BV) marker scores together. Total score isinterpreted as follows:Total score 0-1: Indicates the absence of BV.Total score 2: Indeterminate for BV. Additional clinical data should be evaluated to establish a diagnosis.Total score 3-6: Indicates the presence of BV.This test was developed and its performance characteristicsdetermined by [facility]. It has not been cleared or approvedby the Food and Drug Administration. Vaginal fluid bacterial vagi nosis associated bacterium 2 DNA detection by probe and tOrdered By: Ajit Pettit on 11-05-2022 Bacterial vaginosis associated bacterium 2 DNA NAYELY+probe Ql (Vag fld) Low - 0 Score . [facility] WBC Auto (Bld) [#/Vol]Ordere d By: Ajit Pettit on 11-05-2022 WBC (Bld) [#/Vol] 13.7 10*3/uL 3.8-11.6 [facility] Basophils Auto (Bld) [#/Vol] Ordered By: Ajit Pettit on 07-08-2022 Basophils (Bld) [#/Vol] 0.1 10*3/uL 0.0-0.2 [facility] Basophils/100 WBC Auto (Bld) Ordered By: Ajit Pettit on 07-08-2022 Basophils/100 WBC (Bld) 0.4 % . [facility] Blood hemoglobin measurement (mass/volume)Ordered By: Ajit Pettit on 07-08-2022 Hemoglobin (Bld) [Mass/Vol] 12.7 g/dL 11.8-15.4 [facility] Blood leukocytes automated c ount (number/volume)Ordered By: Ajit Pettit on 07-08-2022 WBC (Bld) [#/Vol] 14.3 10*3/uL 4.5-11.0 [facility] Body fluid albumin measureme nt (mass/volume)Ordered By: Ajit Pettit on 07-08-2022 Albumin (Body fld) [Mass/Vol] 3.6 g/dL 3.2-5.5 [facility] Creatinine and Glomerular fi ltration rate.predicted panel (S/P/Bld)Ordered By: Ajit Pettit on 07-08-2022 Creatinine [Mass/Vol] 0.66 mg/dL 0.44-1.03 [facility] Eosinophils Auto (Bld) [#/Vo l]Ordered By: Ajit Pettit on 07-08-2022 Eosinophils (Bld) [#/Vol] 0.2 10*3/uL 0.0-0.45 [facility] Eosinophils/100 WBC Auto (Bl d)Ordered By: Ajit Pettit on 07-08-2022 Eosinophils/100 WBC (Bld) 1.2 % . [facility] Erythrocyte distribution wid th Auto (RBC) [Ratio]Ordered By: Ajit Pettit on 07-08-2022 Erythrocyte distribution width (RBC) [Ratio] 13.5 % 11.9-15.3 [facility] Estimated glomerular filtrat ion rate (GFR) non- AmericanOrdered By: Ajit Pettit on 07-08-2022 GFR/1.73 sq M.predicted among non-blacks MDRD (S/P/Bld) [Vol rate/Area] > 60 mL/Min [facility] Globulin Calc (S) [Mass/Vol] Ordered By: Ajit Pettit on 07-08-2022 Globulin (S) [Mass/Vol] 2.4 g/dL [facility] Hematocrit Auto (Bld) [Volum e fraction]Ordered By: Ajit Pettit on 07-08-2022 Hematocrit (Bld) [Volume fraction] 38.9 % 34.0-46.4 [facility] Laboratory - Hematology and Cell countsOrdered By: Ajit Pettit on 07-08-2022 Nucleated RBC/100 WBC (Bld) [Ratio] 0.0 % 0-0.5 [facility] Lymphocytes Auto (Bld) [#/Vo l]Ordered By: Ajit Pettit on 07-08-2022 Lymphocytes (Bld) [#/Vol] 4.5 10*3/uL 1.00-4.8 [facility] Lymphocytes/100 WBC Auto (Bl d)Ordered By: Ajit Pettit on 07-08-2022 Lymphocytes/100 WBC (Bld) 31.2 % . [facility] MCH Auto (RBC) [Entitic mass ]Ordered By: Ajit Pettit on 07-08-2022 MCH (RBC) [Entitic mass] 29.7 pg 24.7-34.3 [facility] MCHC Auto (RBC) [Mass/Vol]Or dered By: Ajit Pettit on 07-08-2022 MCHC (RBC) [Mass/Vol] 32.7 g/dL 32.0-35.0 [facility] MCV Auto (RBC) [Entitic vol] Ordered By: Ajit Pettit on 07-08-2022 MCV (RBC) [Entitic vol] 90.8 fL 80-100 [facility] Monocytes Auto (Bld) [#/Vol] Ordered By: Ajit Pettit on 07-08-2022 Monocytes (Bld) [#/Vol] 1.1 10*3/uL 0.0-0.8 [facility] Monocytes/100 WBC Auto (Bld) Ordered By: Ajit Pettit on 07-08-2022 Monocytes/100 WBC (Bld) 7.8 % . [facility] Neutrophils Auto (Bld) [#/Vo l]Ordered By: Ajit Pettit on 07-08-2022 Neutrophils (Bld) [#/Vol] 8.5 10*3/uL 1.8-7.7 [facility] Neutrophils/100 WBC Auto (Bl d)Ordered By: Ajit Pettit on 07-08-2022 Neutrophils/100 WBC (Bld) 59.4 % . [facility] No Panel InformationOrdered By: Ajit Pettit on 07-08-2022 Estimated GFR () > 60 mL/Min [facility] Comment on above: GFR estimated refere nce range: According to KDOQI guidelines, <60 ml/min/1.73m2 is sufficient to diagnose a patient with chronic kidney disease. Pharmacy Creatinine Clearance (Chem N/A [facility] Platelet mean volume Auto (B ld) [Entitic vol]Ordered By: Ajit Pettit on 07-08-2022 Platelet mean volume (Bld) [Entitic vol] 8.3 fL 6.3-10.7 [facility] Platelets Auto (Bld) [#/Vol] Ordered By: Ajit Pettit on 07-08-2022 Platelets (Bld) [#/Vol] 332 10*3/uL 150-450 [facility] Protein [Mass/volume] in Ser um or PlasmaOrdered By: Ajit Pettit on 07-08-2022 Protein [Mass/Vol] 6.0 g/dL 6.1-7.9 [facility] RBC Auto (Bld) [#/Vol]Ordere d By: Ajit Pettit on 07-08-2022 RBC (Bld) [#/Vol] 4.29 10*6/uL 3.60-5.00 [facility] Serum or plasma alanine george otransferase measurement without P-5'-P (enzymatic activiOrdered By: Ajit Pettit on 07-08-2022 ALT No additional P-5'-P [Catalytic activity/Vol] 26 U/L 10-60 [facility] Serum or plasma albumin/glob ulin mass ratioOrdered By: Ajit Pettit on 07-08-2022 Albumin/Globulin [Mass ratio] 1.5 {ratio} [facility] Serum or plasma alkaline lalo sphatase measurement (enzymatic activity/volume)Ordered By: Ajit Pettit on 07-08-2022 ALP [Catalytic activity/Vol] 46 U/L 32-92 [facility] Serum or plasma anion gap de terminationOrdered By: Ajit Pettit on 07-08-2022 Anion gap [Moles/Vol] 15.1 mmol/L 6.0-15.0 [facility] Serum or plasma aspartate am inotransferase measurement (enzymatic activity/volume)Ordered By: Ajit Pettit on 07-08-2022 AST [Catalytic activity/Vol] 31 U/L [facility] Serum or plasma calcium ashwini urement (mass/volume)Ordered By: Ajit Pettit on 07-08-2022 Calcium [Mass/Vol] 9.3 mg/dL 8.2-10.2 [facility] Serum or plasma chloride jett surement (moles/volume)Ordered By: Ajit Pettit on 07-08-2022 Chloride [Moles/Vol] 101 mmol/L 95-114 [facility] Serum or plasma glucose ashwini urement (mass/volume)Ordered By: Ajit Pettit on 07-08-2022 Glucose [Mass/Vol] 129 mg/dL 70-100 [facility] Comment on above: ADA recommended refe rence rangeRandom Glucose Reference Range is dependent on time and content of last meal. Glucose of more than 200 mg/dL in a nonstressed, ambulatory subject supports the diagnosis of Diabetes Mellitus. Serum or plasma potassium me asurement (moles/volume)Ordered By: Ajit Pettit on 07-08-2022 Potassium [Moles/Vol] 5.0 mmol/L 3.5-5.1 [facility] Serum or plasma sodium measu rement (moles/volume)Ordered By: Ajit Pettit on 07-08-2022 Sodium [Moles/Vol] 135 mmol/L 136-146 [facility] Serum or plasma total biliru bin measurement (mass/volume)Ordered By: Ajit Pettit on 07-08-2022 Bilirubin [Mass/Vol] 0.5 mg/dL 0.3-1.2 [facility] Serum or plasma total carbon dioxide measurement (moles/volume)Ordered By: Ajit Pettit on 07-08-2022 CO2 [Moles/Vol] 23.9 mmol/L 22.0-30.0 [facility] Serum or plasma urea nitroge n measurement (mass/volume)Ordered By: Ajit Pettit on 07-08-2022 Urea nitrogen [Mass/Vol] 12 mg/dL 06-26 [facility] TSH DL <= 0.005 mIU/L QnOrde red By: Ajit Pettit on 06-24-2022 TSH Qn 4.14 m[IU]/L 0.45-5.33 [facility] Basophils Auto (Bld) [#/Vol] Ordered By: Ajit Pettit on 06-02-2022 Basophils (Bld) [#/Vol] 0.1 10*3/uL 0.0-0.2 [facility] Basophils/100 WBC Auto (Bld) Ordered By: Aijt Pettit on 06-02-2022 Basophils/100 WBC (Bld) 0.9 % . [facility] Blood hemoglobin measurement (mass/volume)Ordered By: Ajit Pettit on 06-02-2022 Hemoglobin (Bld) [Mass/Vol] 12.9 g/dL 11.8-15.4 [facility] Blood leukocytes automated c ount (number/volume)Ordered By: Ajit Pettit on 06-02-2022 WBC (Bld) [#/Vol] 16.8 10*3/uL 4.5-11.0 [facility] Body fluid albumin measureme nt (mass/volume)Ordered By: Ajit Pettit on 06-02-2022 Albumin (Body fld) [Mass/Vol] 3.5 g/dL 3.2-5.5 [facility] Creatinine and Glomerular fi ltration rate.predicted panel (S/P/Bld)Ordered By: Ajit Pettit on 06-02-2022 Creatinine [Mass/Vol] 0.58 mg/dL 0.44-1.03 [facility] Eosinophils Auto (Bld) [#/Vo l]Ordered By: Ajit Pettit on 06-02-2022 Eosinophils (Bld) [#/Vol] 0.1 10*3/uL 0.0-0.45 [facility] Eosinophils/100 WBC Auto (Bl d)Ordered By: Ajit Pettit on 06-02-2022 Eosinophils/100 WBC (Bld) 0.7 % . [facility] Erythrocyte distribution wid th Auto (RBC) [Ratio]Ordered By: Ajit Pettit on 06-02-2022 Erythrocyte distribution width (RBC) [Ratio] 13.3 % 11.9-15.3 [facility] Estimated glomerular filtrat ion rate (GFR) non- AmericanOrdered By: Ajit Pettit on 06-02-2022 GFR/1.73 sq M.predicted among non-blacks MDRD (S/P/Bld) [Vol rate/Area] > 60 mL/Min [facility] Globulin Calc (S) [Mass/Vol] Ordered By: Ajit Pettit on 06-02-2022 Globulin (S) [Mass/Vol] 2.5 g/dL [facility] Hematocrit Auto (Bld) [Volum e fraction]Ordered By: Ajit Pettit on 06-02-2022 Hematocrit (Bld) [Volume fraction] 38.8 % 34.0-46.4 [facility] Laboratory - Hematology and Cell countsOrdered By: Ajit Pettit on 06-02-2022 Nucleated RBC/100 WBC (Bld) [Ratio] 0.0 % 0-0.5 [facility] Lymphocytes Auto (Bld) [#/Vo l]Ordered By: Ajit Pettit on 06-02-2022 Lymphocytes (Bld) [#/Vol] 3.4 10*3/uL 1.00-4.8 [facility] Lymphocytes/100 WBC Auto (Bl d)Ordered By: Ajit Pettit on 06-02-2022 Lymphocytes/100 WBC (Bld) 20.3 % . [facility] MCH Auto (RBC) [Entitic mass ]Ordered By: Ajit Pettit on 06-02-2022 MCH (RBC) [Entitic mass] 30.3 pg 24.7-34.3 [facility] MCHC Auto (RBC) [Mass/Vol]Or dered By: Ajit Pettit on 06-02-2022 MCHC (RBC) [Mass/Vol] 33.2 g/dL 32.0-35.0 [facility] MCV Auto (RBC) [Entitic vol] Ordered By: Ajit Pettit on 06-02-2022 MCV (RBC) [Entitic vol] 91.1 fL 80-100 [facility] Monocytes Auto (Bld) [#/Vol] Ordered By: Ajit Pettit on 06-02-2022 Monocytes (Bld) [#/Vol] 1.2 10*3/uL 0.0-0.8 [facility] Monocytes/100 WBC Auto (Bld) Ordered By: Ajit Pettit on 06-02-2022 Monocytes/100 WBC (Bld) 7.2 % . [facility] Neutrophils Auto (Bld) [#/Vo l]Ordered By: Ajit Pettit on 06-02-2022 Neutrophils (Bld) [#/Vol] 11.9 10*3/uL 1.8-7.7 [facility] Neutrophils/100 WBC Auto (Bl d)Ordered By: Ajit Pettit on 06-02-2022 Neutrophils/100 WBC (Bld) 70.9 % . [facility] No Panel InformationOrdered By: Ajit Pettit on 06-02-2022 Estimated GFR () > 60 mL/Min [facility] Comment on above: GFR estimated refere nce range: According to KDOQI guidelines, <60 ml/min/1.73m2 is sufficient to diagnose a patient with chronic kidney disease. Pharmacy Creatinine Clearance (Chem N/A [facility] Platelet mean volume Auto (B ld) [Entitic vol]Ordered By: Ajit Pettit on 06-02-2022 Platelet mean volume (Bld) [Entitic vol] 9.2 fL 6.3-10.7 [facility] Platelets Auto (Bld) [#/Vol] Ordered By: Ajit Pettit on 06-02-2022 Platelets (Bld) [#/Vol] 313 10*3/uL 150-450 [facility] Protein [Mass/volume] in Ser um or PlasmaOrdered By: Ajit Pettit on 06-02-2022 Protein [Mass/Vol] 6.0 g/dL 6.1-7.9 [facility] RBC Auto (Bld) [#/Vol]Ordere d By: Ajit Pettit on 06-02-2022 RBC (Bld) [#/Vol] 4.26 10*6/uL 3.60-5.00 [facility] Serum or plasma alanine george otransferase measurement without P-5'-P (enzymatic activiOrdered By: Ajit Pettit on 06-02-2022 ALT No additional P-5'-P [Catalytic activity/Vol] 20 U/L 10-60 [facility] Serum or plasma albumin/glob ulin mass ratioOrdered By: Ajit Pettit on 06-02-2022 Albumin/Globulin [Mass ratio] 1.4 {ratio} [facility] Serum or plasma alkaline lalo sphatase measurement (enzymatic activity/volume)Ordered By: Ajit Pettit on 06-02-2022 ALP [Catalytic activity/Vol] 48 U/L 32-92 [facility] Serum or plasma anion gap de terminationOrdered By: Ajit Pettit on 06-02-2022 Anion gap [Moles/Vol] 15.8 mmol/L 6.0-15.0 [facility] Serum or plasma aspartate am inotransferase measurement (enzymatic activity/volume)Ordered By: Ajit Pettit on 06-02-2022 AST [Catalytic activity/Vol] 21 U/L 10-42 [facility] Serum or plasma calcium ashwini urement (mass/volume)Ordered By: Ajit Pettit on 06-02-2022 Calcium [Mass/Vol] 9.1 mg/dL 8.2-10.2 [facility] Serum or plasma chloride jett surement (moles/volume)Ordered By: Ajit Pettit on 06-02-2022 Chloride [Moles/Vol] 100 mmol/L 95-114 [facility] Serum or plasma glucose ashwini urement (mass/volume)Ordered By: Ajit Pettit on 06-02-2022 Glucose [Mass/Vol] 141 mg/dL 70-100 [facility] Comment on above: ADA recommended refe [...] on 06-02-2022 Potassium [Moles/Vol] 4.3 mmol/L 3.5-5.1 [facility] Serum or plasma sodium measu rement (moles/volume)Ordered By: Ajit Pettit on 06-02-2022 Sodium [Moles/Vol] 132 mmol/L 136-146 [facility] Serum or plasma total biliru bin measurement (mass/volume)Ordered By: Ajit Pettit on 06-02-2022 Bilirubin [Mass/Vol] 0.5 mg/dL 0.3-1.2 [facility] Serum or plasma total carbon dioxide measurement (moles/volume)Ordered By: Ajit Pettit on 06-02-2022 CO2 [Moles/Vol] 20.5 mmol/L 22.0-30.0 [facility] Serum or plasma urea nitroge n measurement (mass/volume)Ordered By: Ajit Pettit on 06-02-2022 Urea nitrogen [Mass/Vol] 12 mg/dL 9-23 [facility] TSH DL <= 0.005 mIU/L QnOrde red By: Ajit Pettit on 06-02-2022 TSH Qn 2.06 m[IU]/L 0.45-5.33 [facility] Basophils Auto (Bld) [#/Vol] Ordered By: Jasmin Velázquez on 05-27-2022 Basophils (Bld) [#/Vol] 0.1 10*3/uL 0.0-0.2 [facility] Basophils/100 WBC Auto (Bld) Ordered By: Jasmin Velázquez on 05-27-2022 Basophils/100 WBC (Bld) 0.6 % . [facility] Blood hemoglobin measurement (mass/volume)Ordered By: Jasmin Velázquez on 05-27-2022 Hemoglobin (Bld) [Mass/Vol] 13.1 g/dL 11.8-15.4 [facility] Blood leukocytes automated c ount (number/volume)Ordered By: Jasmin Velázquez on 05-27-2022 WBC (Bld) [#/Vol] 13.2 10*3/uL 4.5-11.0 [facility] CT biopsyOrdered By: Jasmin noel on 05-27-2022 Transferrin [Mass/Vol] 307 mg/dL 180-380 [facility] Eosinophils Auto (Bld) [#/Vo l]Ordered By: Jasmin Velázquez on 05-27-2022 Eosinophils (Bld) [#/Vol] 0.1 10*3/uL 0.0-0.45 [facility] Eosinophils/100 WBC Auto (Bl d)Ordered By: Jasmin Velázquez on 05-27-2022 Eosinophils/100 WBC (Bld) 1.0 % . [facility] Erythrocyte distribution wid th Auto (RBC) [Ratio]Ordered By: Jasmin Velázquez on 05-27-2022 Erythrocyte distribution width (RBC) [Ratio] 13.5 % 11.9-15.3 [facility] Ferritin [Mass/volume] in Se rum or PlasmaOrdered By: Jasmin Velázquez on 05-27-2022 Ferritin [Mass/Vol] 49.6 ng/mL 11-306.8 [facility] Hematocrit Auto (Bld) [Volum e fraction]Ordered By: Jasmin Velázquez on 05-27-2022 Hematocrit (Bld) [Volume fraction] 40.1 % 34.0-46.4 [facility] Iron [Mass/volume] in Serum or PlasmaOrdered By: Jasmin Velázquez on 05-27-2022 Iron [Mass/Vol] 50 ug/dL 40-150 [facility] Iron binding capacity [Mass/ volume] in Serum or PlasmaOrdered By: Jasmin Velázquez on 05-27-2022 Iron binding capacity [Mass/Vol] 430 ug/dL 255-450 [facility] Iron saturation [Mass Fracti on] in Serum or PlasmaOrdered By: Jasmin Velázquez on 05-27-2022 Iron saturation [Mass fraction] 11.0 % 20-50 [facility] Laboratory - Hematology and Cell countsOrdered By: Jasmin Velázquez on 05-27-2022 Nucleated RBC/100 WBC (Bld) [Ratio] 0.1 % 0-0.5 [facility] Lymphocytes Auto (Bld) [#/Vo l]Ordered By: Jasmin Velázquez on 05-27-2022 Lymphocytes (Bld) [#/Vol] 3.3 10*3/uL 1.00-4.8 [facility] Lymphocytes/100 WBC Auto (Bl d)Ordered By: Jasmin Velázquez on 05-27-2022 Lymphocytes/100 WBC (Bld) 24.8 % . [facility] MCH Auto (RBC) [Entitic mass ]Ordered By: Jasmin Velázquez on 05-27-2022 MCH (RBC) [Entitic mass] 30.0 pg 24.7-34.3 [facility] MCHC Auto (RBC) [Mass/Vol]Or dered By: Jasmin Velázquez on 05-27-2022 MCHC (RBC) [Mass/Vol] 32.7 g/dL 32.0-35.0 [facility] MCV Auto (RBC) [Entitic vol] Ordered By: Jasmin Velázquez on 05-27-2022 MCV (RBC) [Entitic vol] 91.5 fL 80-100 [facility] Monocytes Auto (Bld) [#/Vol] Ordered By: Jasmin Velázquez on 05-27-2022 Monocytes (Bld) [#/Vol] 1.0 10*3/uL 0.0-0.8 [facility] Monocytes/100 WBC Auto (Bld) Ordered By: Jasmin Velázquez on 05-27-2022 Monocytes/100 WBC (Bld) 7.6 % . [facility] Neutrophils Auto (Bld) [#/Vo l]Ordered By: Jasmin Velázquez on 05-27-2022 Neutrophils (Bld) [#/Vol] 8.7 10*3/uL 1.8-7.7 [facility] Neutrophils/100 WBC Auto (Bl d)Ordered By: Jasmin Velázquez on 05-27-2022 Neutrophils/100 WBC (Bld) 66.0 % . [facility] No Panel InformationOrdered By: Jasmin Velázquez on 05-27-2022 BCR/abl See comment [facility] Comment on above: See report. Scanned copy available in EMR. Platelet mean volume Auto (B ld) [Entitic vol]Ordered By: Jasmin Velázquez on 05-27-2022 Platelet mean volume (Bld) [Entitic vol] 8.8 fL 6.3-10.7 [facility] Platelets Auto (Bld) [#/Vol] Ordered By: Jasmin Velázquez on 05-27-2022 Platelets (Bld) [#/Vol] 284 10*3/uL 150-450 [facility] RBC Auto (Bld) [#/Vol]Ordere d By: Jasmin Velázquez on 05-27-2022 RBC (Bld) [#/Vol] 4.38 10*6/uL 3.60-5.00 [facility] Basophils Auto (Bld) [#/Vol] Ordered By: Ajit Pettit on 05-07-2022 Basophils (Bld) [#/Vol] 0.1 10*3/uL 0.0-0.2 [facility] Basophils/100 WBC Auto (Bld) Ordered By: Ajit Pettit on 05-07-2022 Basophils/100 WBC (Bld) 0.6 % . [facility] Blood hemoglobin measurement (mass/volume)Ordered By: Ajit Pettit on 05-07-2022 Hemoglobin (Bld) [Mass/Vol] 13.4 g/dL 11.8-15.4 [facility] Blood leukocytes automated c ount (number/volume)Ordered By: Ajit Pettit on 05-07-2022 WBC (Bld) [#/Vol] 16.2 10*3/uL 4.5-11.0 [facility] Eosinophils Auto (Bld) [#/Vo l]Ordered By: Ajit Pettit on 05-07-2022 Eosinophils (Bld) [#/Vol] 0.1 10*3/uL 0.0-0.45 [facility] Eosinophils/100 WBC Auto (Bl d)Ordered By: Ajit Pettit on 05-07-2022 Eosinophils/100 WBC (Bld) 0.9 % . [facility] Erythrocyte distribution wid th Auto (RBC) [Ratio]Ordered By: Ajit Pettit on 05-07-2022 Erythrocyte distribution width (RBC) [Ratio] 13.6 % 11.9-15.3 [facility] Hematocrit Auto (Bld) [Volum e fraction]Ordered By: Ajit Pettit on 05-07-2022 Hematocrit (Bld) [Volume fraction] 40.5 % 34.0-46.4 [facility] Laboratory - Hematology and Cell countsOrdered By: Ajit Pettit on 05-07-2022 Nucleated RBC/100 WBC (Bld) [Ratio] 0.0 % 0-0.5 [facility] Lymphocytes Auto (Bld) [#/Vo l]Ordered By: Ajit Pettit on 05-07-2022 Lymphocytes (Bld) [#/Vol] 4.7 10*3/uL 1.00-4.8 [facility] Lymphocytes/100 WBC Auto (Bl d)Ordered By: Ajit Millanc on 05-07-2022 Lymphocytes/100 WBC (Bld) 28.9 % . [facility] MCH Auto (RBC) [Entitic mass ]Ordered By: Ajit Pettit on 05-07-2022 MCH (RBC) [Entitic mass] 30.7 pg 24.7-34.3 [facility] MCHC Auto (RBC) [Mass/Vol]Or dered By: Ajit Pettit on 05-07-2022 MCHC (RBC) [Mass/Vol] 33.2 g/dL 32.0-35.0 [facility] MCV Auto (RBC) [Entitic vol] Ordered By: Ajit Pettit on 05-07-2022 MCV (RBC) [Entitic vol] 92.5 fL 80-100 [facility] Monocytes Auto (Bld) [#/Vol] Ordered By: Ajit Millanc on 05-07-2022 Monocytes (Bld) [#/Vol] 1.1 10*3/uL 0.0-0.8 [facility] Monocytes/100 WBC Auto (Bld) Ordered By: Ajit Lariossic on 05-07-2022 Monocytes/100 WBC (Bld) 6.8 % . [facility] Neutrophils Auto (Bld) [#/Vo l]Ordered By: Ajit Lariossic on 05-07-2022 Neutrophils (Bld) [#/Vol] 10.2 10*3/uL 1.8-7.7 [facility] Neutrophils/100 WBC Auto (Bl d)Ordered By: Ajit Millanc on 05-07-2022 Neutrophils/100 WBC (Bld) 62.8 % . [facility] No Panel InformationOrdered By: Ajit Pettit on 05-07-2022 Platelet Estimate Normal Normal [facility] Platelet Morphology Comment Normal Normal [facility] Platelet mean volume Auto (B ld) [Entitic vol]Ordered By: Ajit Pettit on 05-07-2022 Platelet mean volume (Bld) [Entitic vol] 8.0 fL 6.3-10.7 [facility] Platelets Auto (Bld) [#/Vol] Ordered By: Ajit Pettit on 05-07-2022 Platelets (Bld) [#/Vol] 369 10*3/uL 150-450 [facility] RBC Auto (Bld) [#/Vol]Ordere d By: Ajit Pettit on 05-07-2022 RBC (Bld) [#/Vol] 4.38 10*6/uL 3.60-5.00 [facility] RBC morphologyOrdered By: Cole Pettit on 05-07-2022 RBC morphology finding Nom (Bld) Normal [facility] Bacterial blood cultureOrder ed By: Rod Alvarado on 05-06-2022 Bacteria identified Cx Nom (Bld) NO GROWTH 5 DAYS [facility] Bacteria identified Cx Nom (Bld) NO GROWTH 5 DAYS [facility] Bacterial blood cultureOrder ed By: Ajit Pettit on 05-06-2022 Bacteria identified Cx Nom (Bld) NO GROWTH 5 DAYS [facility] Urine culture routineOrdered By: Ajit Pettit on 05-02-2022 Bacteria identified Cx Nom (U) 2 Days [facility] Activated partial thrombopla stin time (aPTT) in platelet poor plasma by coagulation aOrdered By: Rod Alvarado on 05-01-2022 aPTT Coag (PPP) [Time] 29.2 s 25.1-36.5 [facility] Automated epithelial cells c ount in urine sediment (number/area)Ordered By: Rod Alvarado on 05-01-2022 Epithelial cells Auto (Urine sed) [#/Area] 5-9 [HPF] 0-2 [facility] Automated erythrocytes count in urine sediment (number/area)Ordered By: Rod Alvarado on 05-01-2022 RBC Auto (Urine sed) [#/Area] 1-2 [HPF] 0-4 [facility] Automated leukocytes count i n urine sediment (number/area)Ordered By: Rod Alvarado on 05-01-2022 WBC Auto (Urine sed) [#/Area] 1-2 [HPF] 0-4 [facility] Basophils Auto (Bld) [#/Vol] Ordered By: Rod Alvarado on 05-01-2022 Basophils (Bld) [#/Vol] 0.2 10*3/uL 0.0-0.2 [facility] Basophils Auto (Bld) [#/Vol] Ordered By: Ajit Pettit on 05-01-2022 Basophils (Bld) [#/Vol] 0.1 10*3/uL 0.0-0.2 [facility] Basophils/100 WBC Auto (Bld) Ordered By: Rod Alvarado on 05-01-2022 Basophils/100 WBC (Bld) 1.0 % . [facility] Basophils/100 WBC Auto (Bld) Ordered By: Ajit Pettit on 05-01-2022 Basophils/100 WBC (Bld) 0.7 % . [facility] Bilirubin Auto test strip Ql (U)Ordered By: Rod Alvarado on 05-01-2022 Bilirubin Ql (U) 1+ Negative [facility] Blood hemoglobin measurement (mass/volume)Ordered By: Rod Alvarado on 05-01-2022 Hemoglobin (Bld) [Mass/Vol] 13.1 g/dL 11.8-15.4 [facility] Blood hemoglobin measurement (mass/volume)Ordered By: Ajit Pettit on 05-01-2022 Hemoglobin (Bld) [Mass/Vol] 12.9 g/dL 11.8-15.4 [facility] Blood leukocytes automated c ount (number/volume)Ordered By: Rod Alvarado on 05-01-2022 WBC (Bld) [#/Vol] 15.9 10*3/uL 4.5-11.0 [facility] Blood leukocytes automated c ount (number/volume)Ordered By: Ajit Pettit on 05-01-2022 WBC (Bld) [#/Vol] 14.7 10*3/uL 4.5-11.0 [facility] Body fluid albumin measureme nt (mass/volume)Ordered By: Ajit Pettit on 05-01-2022 Albumin (Body fld) [Mass/Vol] 3.6 g/dL 3.2-5.5 [facility] Creatinine and Glomerular fi ltration rate.predicted panel (S/P/Bld)Ordered By: Rod Alvarado on 05-01-2022 Creatinine [Mass/Vol] 0.58 mg/dL 0.44-1.03 [facility] Creatinine and Glomerular fi ltration rate.predicted panel (S/P/Bld)Ordered By: Ajit Pettit on 05-01-2022 Creatinine [Mass/Vol] 0.58 mg/dL 0.44-1.03 [facility] Eosinophils Auto (Bld) [#/Vo l]Ordered By: Rod Alvarado on 05-01-2022 Eosinophils (Bld) [#/Vol] 0.2 10*3/uL 0.0-0.45 [facility] Eosinophils Auto (Bld) [#/Vo l]Ordered By: Ajit Pettit on 05-01-2022 Eosinophils (Bld) [#/Vol] 0.1 10*3/uL 0.0-0.45 [facility] Eosinophils/100 WBC Auto (Bl d)Ordered By: Rod Alvarado on 05-01-2022 Eosinophils/100 WBC (Bld) 1.0 % . [facility] Eosinophils/100 WBC Auto (Bl d)Ordered By: Ajit Pettit on 05-01-2022 Eosinophils/100 WBC (Bld) 0.9 % . [facility] Erythrocyte distribution wid th Auto (RBC) [Ratio]Ordered By: Rod Alvarado on 05-01-2022 Erythrocyte distribution width (RBC) [Ratio] 13.6 % 11.9-15.3 [facility] Erythrocyte distribution wid th Auto (RBC) [Ratio]Ordered By: Ajit Pettit on 05-01-2022 Erythrocyte distribution width (RBC) [Ratio] 13.6 % 11.9-15.3 [facility] Estimated glomerular filtrat ion rate (GFR) non- AmericanOrdered By: Rod Alvarado on 05-01-2022 GFR/1.73 sq M.predicted among non-blacks MDRD (S/P/Bld) [Vol rate/Area] > 60 mL/Min [facility] Estimated glomerular filtrat ion rate (GFR) non- AmericanOrdered By: Ajit Pettit on 05-01-2022 GFR/1.73 sq M.predicted among non-blacks MDRD (S/P/Bld) [Vol rate/Area] > 60 mL/Min [facility] Globulin Calc (S) [Mass/Vol] Ordered By: Ajit Pettit on 05-01-2022 Globulin (S) [Mass/Vol] 2.6 g/dL [facility] Hematocrit Auto (Bld) [Volum e fraction]Ordered By: Rod Alvarado on 05-01-2022 Hematocrit (Bld) [Volume fraction] 39.0 % 34.0-46.4 [facility] Hematocrit Auto (Bld) [Volum e fraction]Ordered By: Ajit Pettit on 05-01-2022 Hematocrit (Bld) [Volume fraction] 39.0 % 34.0-46.4 [facility] Ketones Auto test strip (U) [Mass/Vol]Ordered By: Rod Alvarado on 05-01-2022 Ketones (U) [Mass/Vol] Trace Negative [facility] Laboratory - Chemistry and C hemistry - challengeOrdered By: Rod Alvarado on 05-01-2022 Lipase [Catalytic activity/Vol] 37.0 U/L 22-51 [facility] Laboratory - CoagulationOrde red By: Rod Alvarado on 05-01-2022 PT Coag (PPP) [Time] 9.6 s 9.0-12.9 [facility] Laboratory - Hematology and Cell countsOrdered By: Rod Alvarado on 05-01-2022 Nucleated RBC/100 WBC (Bld) [Ratio] 0.0 % 0-0.5 [facility] Laboratory - Hematology and Cell countsOrdered By: Ajit Pettit on 05-01-2022 Nucleated RBC/100 WBC (Bld) [Ratio] 0.0 % 0-0.5 [facility] Lymphocytes Auto (Bld) [#/Vo l]Ordered By: Rod Alvarado on 05-01-2022 Lymphocytes (Bld) [#/Vol] 4.3 10*3/uL 1.00-4.8 [facility] Lymphocytes Auto (Bld) [#/Vo l]Ordered By: Ajit Pettit on 05-01-2022 Lymphocytes (Bld) [#/Vol] 3.6 10*3/uL 1.00-4.8 [facility] Lymphocytes/100 WBC Auto (Bl d)Ordered By: Rod Alvarado on 05-01-2022 Lymphocytes/100 WBC (Bld) 26.9 % . [facility] Lymphocytes/100 WBC Auto (Bl d)Ordered By: Ajit Pettit on 05-01-2022 Lymphocytes/100 WBC (Bld) 24.8 % . [facility] MCH Auto (RBC) [Entitic mass ]Ordered By: Rod Alvarado on 05-01-2022 MCH (RBC) [Entitic mass] 30.5 pg 24.7-34.3 [facility] MCH Auto (RBC) [Entitic mass ]Ordered By: Ajit Pettit on 05-01-2022 MCH (RBC) [Entitic mass] 30.5 pg 24.7-34.3 [facility] MCHC Auto (RBC) [Mass/Vol]Or dered By: Rod Alvarado on 05-01-2022 MCHC (RBC) [Mass/Vol] 33.5 g/dL 32.0-35.0 [facility] MCHC Auto (RBC) [Mass/Vol]Or dered By: Ajit Pettit on 05-01-2022 MCHC (RBC) [Mass/Vol] 32.9 g/dL 32.0-35.0 [facility] MCV Auto (RBC) [Entitic vol] Ordered By: Rod Alvarado on 05-01-2022 MCV (RBC) [Entitic vol] 91.0 fL 80-100 [facility] MCV Auto (RBC) [Entitic vol] Ordered By: Ajit Pettit on 05-01-2022 MCV (RBC) [Entitic vol] 92.6 fL 80-100 [facility] Monocytes Auto (Bld) [#/Vol] Ordered By: Rod Alvarado on 05-01-2022 Monocytes (Bld) [#/Vol] 1.1 10*3/uL 0.0-0.8 [facility] Monocytes Auto (Bld) [#/Vol] Ordered By: Ajit Millanc on 05-01-2022 Monocytes (Bld) [#/Vol] 1.1 10*3/uL 0.0-0.8 [facility] Monocytes/100 WBC Auto (Bld) Ordered By: Rod Alvarado on 05-01-2022 Monocytes/100 WBC (Bld) 6.7 % . [facility] Monocytes/100 WBC Auto (Bld) Ordered By: Ajit Millanc on 05-01-2022 Monocytes/100 WBC (Bld) 7.2 % . [facility] Neutrophils Auto (Bld) [#/Vo l]Ordered By: Rod Alvarado on 05-01-2022 Neutrophils (Bld) [#/Vol] 10.3 10*3/uL 1.8-7.7 [facility] Neutrophils Auto (Bld) [#/Vo l]Ordered By: Ajit Millanc on 05-01-2022 Neutrophils (Bld) [#/Vol] 9.8 10*3/uL 1.8-7.7 [facility] Neutrophils/100 WBC Auto (Bl d)Ordered By: Rod Alvarado on 05-01-2022 Neutrophils/100 WBC (Bld) 64.4 % . [facility] Neutrophils/100 WBC Auto (Bl d)Ordered By: Ajit Millanc on 05-01-2022 Neutrophils/100 WBC (Bld) 66.4 % . [facility] No Panel InformationOrdered By: Rod Alvarado on 05-01-2022 Estimated GFR () > 60 mL/Min [facility] Comment on above: GFR estimated refere nce range: According to KDOQI guidelines, <60 ml/min/1.73m2 is sufficient to diagnose a patient with chronic kidney disease. Pharmacy Creatinine Clearance (Chem 128.97 [facility] No Panel InformationOrdered By: Ajit Pettit on 05-01-2022 Estimated GFR () > 60 mL/Min [facility] Comment on above: GFR estimated refere nce range: According to KDOQI guidelines, <60 ml/min/1.73m2 is sufficient to diagnose a patient with chronic kidney disease. Pharmacy Creatinine Clearance (Chem N/A [facility] Platelet mean volume Auto (B ld) [Entitic vol]Ordered By: Rod Alvarado on 05-01-2022 Platelet mean volume (Bld) [Entitic vol] 7.6 fL 6.3-10.7 [facility] Platelet mean volume Auto (B ld) [Entitic vol]Ordered By: Ajit Pettit on 05-01-2022 Platelet mean volume (Bld) [Entitic vol] 8.1 fL 6.3-10.7 [facility] Platelet poor plasma interna tional normalized ratio (INR) by coagulation assay (relatOrdered By: Rod Alvarado on 05-01-2022 INR Coag (PPP) [Relative time] 0.9 {INR} [facility] Comment on above: INR Therapeutic [...] (Bld) [#/Vol] 310 10*3/uL 150-450 [facility] Platelets Auto (Bld) [#/Vol] Ordered By: Ajit Pettit on 05-01-2022 Platelets (Bld) [#/Vol] 284 10*3/uL 150-450 [facility] Protein Auto test strip (U) [Mass/Vol]Ordered By: Rod Alvarado on 05-01-2022 Protein (U) [Mass/Vol] Negative Negative Fi [facility] Protein [Mass/volume] in Ser um or PlasmaOrdered By: Ajit Pettit on 05-01-2022 Protein [Mass/Vol] 6.2 g/dL 6.1-7.9 [facility] RBC Auto (Bld) [#/Vol]Ordere d By: Rod Alvarado on 05-01-2022 RBC (Bld) [#/Vol] 4.29 10*6/uL 3.60-5.00 [facility] RBC Auto (Bld) [#/Vol]Ordere d By: Ajit Pettit on 05-01-2022 RBC (Bld) [#/Vol] 4.22 10*6/uL 3.60-5.00 [facility] Serum or plasma alanine george otransferase measurement without P-5'-P (enzymatic activiOrdered By: Ajit Pettit on 05-01-2022 ALT No additional P-5'-P [Catalytic activity/Vol] 17 U/L 10-60 [facility] Serum or plasma albumin/glob ulin mass ratioOrdered By: Ajit Pettit on 05-01-2022 Albumin/Globulin [Mass ratio] 1.4 {ratio} [facility] Serum or plasma alkaline lalo sphatase measurement (enzymatic activity/volume)Ordered By: Ajit Pettit on 05-01-2022 ALP [Catalytic activity/Vol] 52 U/L 32-92 [facility] Serum or plasma aspartate am inotransferase measurement (enzymatic activity/volume)Ordered By: Ajit Pettit on 05-01-2022 AST [Catalytic activity/Vol] 19 U/L 10-42 [facility] Serum or plasma calcium ashwini urement (mass/volume)Ordered By: Rod Alvarado on 05-01-2022 Calcium [Mass/Vol] 9.0 mg/dL 8.2-10.2 [facility] Serum or plasma calcium ashwini urement (mass/volume)Ordered By: Ajit Pettit on 05-01-2022 Calcium [Mass/Vol] 9.2 mg/dL 8.2-10.2 [facility] Serum or plasma chloride jett surement (moles/volume)Ordered By: Rod Alvarado on 05-01-2022 Chloride [Moles/Vol] 101 mmol/L 95-114 [facility] Serum or plasma chloride jett surement (moles/volume)Ordered By: Ajit Pettit on 05-01-2022 Chloride [Moles/Vol] 100 mmol/L 95-114 [facility] Serum or plasma glucose ashwini urement (mass/volume)Ordered By: Rod Alvarado on 05-01-2022 Glucose [Mass/Vol] 110 mg/dL 70-100 [facility] Comment on above: ADA recommended refe [...] on 05-01-2022 Glucose [Mass/Vol] 117 mg/dL 70-100 [facility] Comment on above: ADA recommended refe [...] on 05-01-2022 Potassium [Moles/Vol] 4.4 mmol/L 3.5-5.1 [facility] Serum or plasma potassium me asurement (moles/volume)Ordered By: Ajit Pettit on 05-01-2022 Potassium [Moles/Vol] 4.4 mmol/L 3.5-5.1 [facility] Serum or plasma sodium measu rement (moles/volume)Ordered By: Rod Alvarado on 05-01-2022 Sodium [Moles/Vol] 135 mmol/L 136-146 [facility] Serum or plasma sodium measu rement (moles/volume)Ordered By: Ajit Pettit on 05-01-2022 Sodium [Moles/Vol] 133 mmol/L 136-146 [facility] Serum or plasma total biliru bin measurement (mass/volume)Ordered By: Rod Alvarado on 05-01-2022 Bilirubin [Mass/Vol] 0.7 mg/dL 0.3-1.2 [facility] Serum or plasma total biliru bin measurement (mass/volume)Ordered By: Ajit Pettit on 05-01-2022 Bilirubin [Mass/Vol] 0.4 mg/dL 0.3-1.2 [facility] Serum or plasma total carbon dioxide measurement (moles/volume)Ordered By: Rod Alvarado on 05-01-2022 CO2 [Moles/Vol] 25.9 mmol/L 22.0-30.0 [facility] Serum or plasma total carbon dioxide measurement (moles/volume)Ordered By: Ajit Pettit on 05-01-2022 CO2 [Moles/Vol] 23.1 mmol/L 22.0-30.0 [facility] Serum or plasma urea nitroge n measurement (mass/volume)Ordered By: Rod Alvarado on 05-01-2022 Urea nitrogen [Mass/Vol] 11 mg/dL 06-26 [facility] Serum or plasma urea nitroge n measurement (mass/volume)Ordered By: Ajit Pettit on 05-01-2022 Urea nitrogen [Mass/Vol] 14 mg/dL 06-26 [facility] Urine appearanceOrdered By: Rod Alvarado on 05-01-2022 Appearance (U) Clear Clear [facility] Urine bacteria detection by automated methodOrdered By: Rod Alvarado on 05-01-2022 Bacteria Auto Ql (U) 1+ None Seen [facility] Urine colorOrdered By: Shady Alvarado on 05-01-2022 Color (U) Yellow Yellow [facility] Urine glucose measurement by automated test strip (mass/volume)Ordered By: Rod Alvarado on 05-01-2022 Glucose Auto test strip (U) [Mass/Vol] Normal mg/dL Normal [facility] Urine hemoglobin detection b y automated test stripOrdered By: Rod Alvarado on 05-01-2022 Hemoglobin Auto test strip Ql (U) Negative Negative [facility] Urine lactic acid measuremen tOrdered By: Rod Alvarado on 05-01-2022 Lactate (U) [Moles/Vol] 1.7 mmol/L 0.5-2.2 [facility] Urine lactic acid measuremen tOrdered By: Ajit Pettit on 05-01-2022 Lactate (U) [Moles/Vol] 2.5 mmol/L 0.5-2.2 [facility] Comment on above: Results called at 1022 on 05/01/22 Results calledat 102 2 on 05/01/22 Urine leukocyte esterase det ection by automated test stripOrdered By: Rod Alvarado on 05-01-2022 Leukocyte esterase Auto test strip Ql (U) 2+ Negative [facility] Urine nitrite detection by a utomated test stripOrdered By: Rod Alvarado on 05-01-2022 Nitrite Auto test strip Ql (U) Negative Negative [facility] Urobilinogen Auto test strip (U) [Mass/Vol]Ordered By: Rod Alvarado on 05-01-2022 Urobilinogen (U) [Mass/Vol] Normal mg/dL Normal [facility] pH Auto test strip (U)Ordere d By: Rod Alvarado on 05-01-2022 pH (U) 1.030 [pH] 1.001-1.03 0 [facility] pH (U) 6.0 [pH] 5.0-9.0 [facility] Basophils Auto (Bld) [#/Vol] Ordered By: Ajit Pettit on 04-30-2022 Basophils (Bld) [#/Vol] 0.2 10*3/uL 0.0-0.2 [facility] Basophils/100 WBC Auto (Bld) Ordered By: Ajit Pettit on 04-30-2022 Basophils/100 WBC (Bld) 0.9 % . [facility] Blood hemoglobin measurement (mass/volume)Ordered By: Ajit Pettit on 04-30-2022 Hemoglobin (Bld) [Mass/Vol] 13.9 g/dL 11.8-15.4 [facility] Blood leukocytes automated c ount (number/volume)Ordered By: Ajit Pettit on 04-30-2022 WBC (Bld) [#/Vol] 19.7 10*3/uL 4.5-11.0 [facility] Body fluid albumin measureme nt (mass/volume)Ordered By: Ajit Pettit on 04-30-2022 Albumin (Body fld) [Mass/Vol] 4.1 g/dL 3.2-5.[address] [facility] [address] biopsyOrdered By: Ajit corrales on 04-30-2022 Transferrin [Mass/Vol] 352 mg/dL 180-380 [facility] Cholesterol [Mass/volume] in Serum or PlasmaOrdered By: Ajit Pettit on 04-30-2022 Cholesterol [Mass/Vol] 260 mg/dL 140-200 [facility] Comment on above: Chol less than 200 m g/dl low risk Chol 201-239 mg/dl borderline risk Chol 240 mg/dl and greater high risk Chol less than 200 m g/dl low riskChol 201-239 mg/dl borderline riskChol 240 mg/dl and greater high risk Cholesterol in LDL Calc [Mas s/Vol]Ordered By: Ajit Pettit on 04-30-2022 Cholesterol in LDL [Mass/Vol] 134 mg/dL 0-100 [facility] Comment on above: LDL ATP [...] in VLDL [Mass/Vol] 68 mg/dL [facility] Creatinine and Glomerular fi ltration rate.predicted panel (S/P/Bld)Ordered By: Ajit Pettit on 04-30-2022 Creatinine [Mass/Vol] 0.56 mg/dL 0.44-1.03 [facility] Eosinophils Auto (Bld) [#/Vo l]Ordered By: Ajit Pettit on 04-30-2022 Eosinophils (Bld) [#/Vol] 0.2 10*3/uL 0.0-0.45 [facility] Eosinophils/100 WBC Auto (Bl d)Ordered By: Ajit Pettit on 04-30-2022 Eosinophils/100 WBC (Bld) 1.0 % . [facility] Erythrocyte distribution wid th Auto (RBC) [Ratio]Ordered By: Ajit Pettit on 04-30-2022 Erythrocyte distribution width (RBC) [Ratio] 13.5 % 11.9-15.3 [facility] Estimated glomerular filtrat ion rate (GFR) non- AmericanOrdered By: Ajit Pettit on 04-30-2022 GFR/1.73 sq M.predicted among non-blacks MDRD (S/P/Bld) [Vol rate/Area] > 60 mL/Min [facility] Globulin Calc (S) [Mass/Vol] Ordered By: Ajit Pettit on 04-30-2022 Globulin (S) [Mass/Vol] 2.9 g/dL [facility] Hematocrit Auto (Bld) [Volum e fraction]Ordered By: Ajit Pettit on 04-30-2022 Hematocrit (Bld) [Volume fraction] 42.9 % 34.0-46.4 [facility] Iron [Mass/volume] in Serum or PlasmaOrdered By: Ajit Pettit on 04-30-2022 Iron [Mass/Vol] 51 ug/dL 40-150 [facility] Iron binding capacity [Mass/ volume] in Serum or PlasmaOrdered By: Ajit Pettit on 04-30-2022 Iron binding capacity [Mass/Vol] 493 ug/dL 255-450 [facility] Iron saturation [Mass Fracti on] in Serum or PlasmaOrdered By: Ajit Pettit on 04-30-2022 Iron saturation [Mass fraction] 10.0 % 20-50 [facility] Laboratory - Chemistry and C hemistry - challengeOrdered By: Ajit Pettit on 04-30-2022 Cobalamin (Vitamin B12) [Mass/Vol] 472 pg/mL 180-914 [facility] Laboratory - Hematology and Cell countsOrdered By: Ajit Pettit on 04-30-2022 Nucleated RBC/100 WBC (Bld) [Ratio] 0.2 % 0-0.5 [facility] Lymphocytes Auto (Bld) [#/Vo l]Ordered By: Ajit Pettit on 04-30-2022 Lymphocytes (Bld) [#/Vol] 4.1 10*3/uL 1.00-4.8 [facility] Lymphocytes/100 WBC Auto (Bl d)Ordered By: Ajit Pettit on 04-30-2022 Lymphocytes/100 WBC (Bld) 20.8 % . [facility] MCH Auto (RBC) [Entitic mass ]Ordered By: Ajit Pettit on 04-30-2022 MCH (RBC) [Entitic mass] 30.0 pg 24.7-34.3 [facility] MCHC Auto (RBC) [Mass/Vol]Or dered By: Ajit Pettit on 04-30-2022 MCHC (RBC) [Mass/Vol] 32.4 g/dL 32.0-35.0 [facility] MCV Auto (RBC) [Entitic vol] Ordered By: Ajit Pettit on 04-30-2022 MCV (RBC) [Entitic vol] 92.7 fL 80-100 [facility] Monocytes Auto (Bld) [#/Vol] Ordered By: Ajit Pettit on 04-30-2022 Monocytes (Bld) [#/Vol] 1.3 10*3/uL 0.0-0.8 [facility] Monocytes/100 WBC Auto (Bld) Ordered By: Ajit Pettit on 04-30-2022 Monocytes/100 WBC (Bld) 6.8 % . [facility] Neutrophils Auto (Bld) [#/Vo l]Ordered By: Ajit Pettit on 04-30-2022 Neutrophils (Bld) [#/Vol] 13.9 10*3/uL 1.8-7.7 [facility] Neutrophils/100 WBC Auto (Bl d)Ordered By: Ajit Pettit on 04-30-2022 Neutrophils/100 WBC (Bld) 70.5 % . [facility] No Panel InformationOrdered By: Ajit Pettit on 04-30-2022 25-Hydroxy Vitamin D Total 19.9 ng/mL 30-100 [facility] Comment on above: VITAMIN D [...] GFR () > 60 mL/Min [facility] Comment on above: GFR estimated refere nce range: According to KDOQI guidelines, <60 ml/min/1.73m2 is sufficient to diagnose a patient with chronic kidney disease. Pharmacy Creatinine Clearance (Chem N/A [facility] Valproic Acid (Depakene) Level 59.8 ug/mL 50.0-100.0 [facility] Comment on above: Last dose: - Platelet mean volume Auto (B ld) [Entitic vol]Ordered By: Ajit Pettit on 04-30-2022 Platelet mean volume (Bld) [Entitic vol] 8.7 fL 6.3-10.7 [facility] Platelets Auto (Bld) [#/Vol] Ordered By: Ajit Pettit on 04-30-2022 Platelets (Bld) [#/Vol] 257 10*3/uL 150-450 [facility] Protein [Mass/volume] in Ser um or PlasmaOrdered By: Ajit Pettit on 04-30-2022 Protein [Mass/Vol] 7.0 g/dL 6.1-7.9 [facility] RBC Auto (Bld) [#/Vol]Ordere d By: Ajit Pettit on 04-30-2022 RBC (Bld) [#/Vol] 4.62 10*6/uL 3.60-5.00 [facility] Serum or plasma alanine george otransferase measurement without P-5'-P (enzymatic activiOrdered By: Ajit Pettit on 04-30-2022 ALT No additional P-5'-P [Catalytic activity/Vol] 20 U/L 10-60 [facility] Serum or plasma albumin/glob ulin mass ratioOrdered By: Ajit Pettit on 04-30-2022 Albumin/Globulin [Mass ratio] 1.4 {ratio} [facility] Serum or plasma alkaline lalo sphatase measurement (enzymatic activity/volume)Ordered By: Ajit Pettit on 04-30-2022 ALP [Catalytic activity/Vol] 54 U/L 32-92 [facility] Serum or plasma aspartate am inotransferase measurement (enzymatic activity/volume)Ordered By: Ajit Pettit on 04-30-2022 AST [Catalytic activity/Vol] 22 U/L 10-42 [facility] Serum or plasma calcium ashwini urement (mass/volume)Ordered By: Ajit Pettit on 04-30-2022 Calcium [Mass/Vol] 9.4 mg/dL 8.2-10.2 [facility] Serum or plasma chloride jett surement (moles/volume)Ordered By: Ajit Pettit on 04-30-2022 Chloride [Moles/Vol] 102 mmol/L 95-114 [facility] Serum or plasma glucose ashwini urement (mass/volume)Ordered By: Ajit Pettit on 04-30-2022 Glucose [Mass/Vol] 115 mg/dL 70-100 [facility] Comment on above: ADA recommended refe [...] HDL [Mass/Vol] 57 mg/dL 35-85 [facility] Comment on above: HDL CHOL ATP-III CLA SSIFICATION Cardiovascular Risk HDL > or equal to 60 mg/dL LOW HDL < 40 mg/dL HIGH HDL CHOL ATP-III CLA SSIFICATION Cardiovascular RiskHDL > or equal to 60 mg/dL LOWHDL < 40 mg/dL HIGH Serum or plasma potassium me asurement (moles/volume)Ordered By: Ajit Pettit on 04-30-2022 Potassium [Moles/Vol] 4.8 mmol/L 3.5-5.1 [facility] Serum or plasma sodium measu rement (moles/volume)Ordered By: Ajit Pettit on 04-30-2022 Sodium [Moles/Vol] 135 mmol/L 136-146 [facility] Serum or plasma total biliru bin measurement (mass/volume)Ordered By: Ajit Pettit on 04-30-2022 Bilirubin [Mass/Vol] 0.2 mg/dL 0.3-1.2 [facility] Serum or plasma total carbon dioxide measurement (moles/volume)Ordered By: Ajit Pettit on 04-30-2022 CO2 [Moles/Vol] 24.2 mmol/L 22.0-30.0 [facility] Serum or plasma total choles terol/high density lipoprotein (HDL) cholesterol mass ratOrdered By: Ajit Pettit on 04-30-2022 Cholesterol.total/Suellen sterol in HDL [Mass ratio] 4.6 {ratio} <5.0 [facility] Serum or plasma urea nitroge n measurement (mass/volume)Ordered By: Ajit Pettit on 04-30-2022 Urea nitrogen [Mass/Vol] 12 mg/dL 9- [facility] TSH DL <= 0.005 mIU/L QnOrde red By: Ajit Pettit on 04-30-2022 TSH Qn 2.89 m[IU]/L 0.45-5.33 [facility] Triglyceride [Mass/volume] i n Serum or PlasmaOrdered By: Ajit Pettit on 04-30-2022 Triglyceride [Mass/Vol] 344 mg/dL 35-149 [facility] Comment on above: TRIG ATP III [...] 01-21-2021 Basophils (Bld) [#/Vol] 0.1 10*3/uL 0.0-0.2 [facility] Basophils/100 WBC Auto (Bld) on 01-21-2021 Basophils/100 WBC (Bld) 1.0 % [facility] Blood hemoglobin measurement (mass/volume)on 01-21-2021 Hemoglobin (Bld) [Mass/Vol] 13.0 g/dL 11.8-15.4 [facility] Blood leukocytes automated c ount (number/volume)on 01-21-2021 WBC (Bld) [#/Vol] 13.2 10*3/uL 4.5-11.0 [facility] Body fluid albumin measureme nt (mass/volume)on 01-21-2021 Albumin (Body fld) [Mass/Vol] 3.7 g/dL 3.2-5.5 [facility] Creatinine and Glomerular fi ltration rate.predicted panel (S/P/Bld)on 01-21-2021 Creatinine [Mass/Vol] 0.67 mg/dL 0.44-1.03 [facility] Eosinophils Auto (Bld) [#/Vo l]on 01-21-2021 Eosinophils (Bld) [#/Vol] 0.1 10*3/uL 0.0-0.45 [facility] Eosinophils/100 WBC Auto (Bl d)on 01-21-2021 Eosinophils/100 WBC (Bld) 0.8 % [facility] Erythrocyte distribution wid th Auto (RBC) [Ratio]on 01-21-2021 Erythrocyte distribution width (RBC) [Ratio] 13.1 % 11.9-15.3 [facility] Estimated glomerular filtrat ion rate (GFR) non- Americanon 01-21-2021 GFR/1.73 sq M.predicted among non-blacks MDRD (S/P/Bld) [Vol rate/Area] > 60 mL/Min [facility] Globulin Calc (S) [Mass/Vol] on 01-21-2021 Globulin (S) [Mass/Vol] 2.7 g/dL F [facility] Hematocrit Auto (Bld) [Volum e fraction]on 01-21-2021 Hematocrit (Bld) [Volume fraction] 38.1 % 34.0-46.4 [facility] Laboratory - Chemistry and C hemistry - challengeon 01-21-2021 Cobalamin (Vitamin B12) [Mass/Vol] 341 pg/mL 180-914 [facility] Laboratory - Hematology and Cell countson 01-21-2021 Nucleated RBC/100 WBC (Bld) [Ratio] 0.2 % 0-0.5 [facility] Lymphocytes Auto (Bld) [#/Vo l]on 01-21-2021 Lymphocytes (Bld) [#/Vol] 3.9 10*3/uL 1.00-4.8 [facility] Lymphocytes/100 WBC Auto (Bl d)on 01-21-2021 Lymphocytes/100 WBC (Bld) 29.4 % [facility] MCH Auto (RBC) [Entitic mass ]on 01-21-2021 MCH (RBC) [Entitic mass] 30.6 pg 24.7-34.3 [facility] MCHC Auto (RBC) [Mass/Vol]on 01-21-2021 MCHC (RBC) [Mass/Vol] 34.1 g/dL 32.0-35.0 [facility] MCV Auto (RBC) [Entitic vol] on 01-21-2021 MCV (RBC) [Entitic vol] 89.6 fL 80-100 [facility] Monocytes Auto (Bld) [#/Vol] on 01-21-2021 Monocytes (Bld) [#/Vol] 1.1 10*3/uL 0.0-0.8 [facility] Monocytes/100 WBC Auto (Bld) on 01-21-2021 Monocytes/100 WBC (Bld) 8.6 % [facility] Neutrophils Auto (Bld) [#/Vo l]on 01-21-2021 Neutrophils (Bld) [#/Vol] 8.0 10*3/uL 1.8-7.7 [facility] Neutrophils/100 WBC Auto (Bl d)on 01-21-2021 Neutrophils/100 WBC (Bld) 60.2 % [facility] No Panel Informationon 01-21 25-Hydroxy Vitamin D Total 25.5 ng/mL 30-100 [facility] Comment on above: VITAMIN D STATUS 25( [place])VITAMIN D RANGE (ng/mL) Deficient <20 Insufficient 20 to <30Sufficient 30 to 100Reference: Jovanni MF,Dominique NC, Gillian NINA, et al. Evaluation,treatment, and prevention of vitamin D deficiency; an Endocrine Society clinical practice guideline. JCEM. 2010; 96(7):1911-30. Estimated GFR () > 60 mL/Min [facility] Comment on above: GFR estimated refere nce range: According to KDOQI guidelines, <60 ml/min/1.73m2 is sufficient to diagnose a patient with chronic kidney disease. Pharmacy Creatinine Clearance (Chem N/A [facility] Valproic Acid (Depakene) Level 74.3 ug/mL 50.0-100.0 [facility] Comment on above: Last dose: - Platelet mean volume Auto (B ld) [Entitic vol]on 01-21-2021 Platelet mean volume (Bld) [Entitic vol] 9.1 fL 6.3-10.7 [facility] Platelets Auto (Bld) [#/Vol] on 01-21-2021 Platelets (Bld) [#/Vol] 261 10*3/uL 150-450 [facility] Protein [Mass/volume] in Ser um or Plasmaon 01-21-2021 Protein [Mass/Vol] 6.4 g/dL 6.1-7.9 [facility] RBC Auto (Bld) [#/Vol]on RBC (Bld) [#/Vol] 4.25 10*6/uL 3.60-5.00 [facility] Serum or plasma alanine george otransferase measurement without P-5'-P (enzymatic activion 01-21-2021 ALT No additional P-5'-P [Catalytic activity/Vol] 14 U/L 10-60 [facility] Serum or plasma albumin/glob ulin mass ratioon 01-21-2021 Albumin/Globulin [Mass ratio] 1.4 {ratio} [facility] Serum or plasma alkaline lalo sphatase measurement (enzymatic activity/volume)on 01-21-2021 ALP [Catalytic activity/Vol] 50 U/L 32-92 [facility] Serum or plasma aspartate am inotransferase measurement (enzymatic activity/volume)on 01-21-2021 AST [Catalytic activity/Vol] 17 U/L 10-42 [facility] Serum or plasma calcium sahwini urement (mass/volume)on 01-21-2021 Calcium [Mass/Vol] 9.5 mg/dL 8.2-10.2 [facility] Serum or plasma chloride jett surement (moles/volume)on 01-21-2021 Chloride [Moles/Vol] 96 mmol/L 95-114 [facility] Serum or plasma glucose ashwini urement (mass/volume)on 01-21-2021 Glucose [Mass/Vol] 117 mg/dL 70-100 [facility] Comment on above: ADA recommended refe rence rangeRandom Glucose Reference Range is dependent on time and content of last meal. Glucose of more than 200 mg/dL in a nonstressed, ambulatory subject supports the diagnosis of Diabetes Mellitus. Serum or plasma potassium me asurement (moles/volume)on 01-21-2021 Potassium [Moles/Vol] 4.3 mmol/L 3.5-5.1 [facility] Serum or plasma sodium measu rement (moles/volume)on 01-21-2021 Sodium [Moles/Vol] 132 mmol/L 136-146 [facility] Serum or plasma total biliru bin measurement (mass/volume)on 01-21-2021 Bilirubin [Mass/Vol] 0.3 mg/dL 0.3-1.2 [facility] Serum or plasma total carbon dioxide measurement (moles/volume)on 01-21-2021 CO2 [Moles/Vol] 23.6 mmol/L 22.0-30.0 [facility] Serum or plasma urea nitroge n measurement (mass/volume)on 01-21-2021 Urea nitrogen [Mass/Vol] 13 mg/dL 06-26 [facility] Albumin [Mass/volume] in Ser um or Plasmaon 11-05-2020 Albumin [Mass/Vol] 4.4 g/dL 3.2-5.5 [facility] Automated basophil %on 11-05 Basophils/100 WBC (Bld) 0.7 % [facility] Automated basophil counton 0 11-05-2020 Basophils (Bld) [#/Vol] 0.1 10*3/uL 0.0-0.2 [facility] Automated blood lymphocyte c ount (number/volume)on 11-05-2020 Lymphocytes (Bld) [#/Vol] 3.5 10*3/uL 1.00-4.8 [facility] Automated blood lymphocyte c ount as percentage of total leukocyteson 11-05-2020 Lymphocytes/100 WBC (Bld) 26.0 % [facility] Automated blood monocyte cou nton 11-05-2020 Monocytes (Bld) [#/Vol] 1.2 10*3/uL 0.0-0.8 [facility] Automated blood platelet cou nt (count/volume)on 11-05-2020 Platelets (Bld) [#/Vol] 317 10*3/uL 150-450 [facility] Automated blood platelet jett n volume measurementon 11-05-2020 Platelet mean volume (Bld) [Entitic vol] 8.2 fL 6.3-10.7 [facility] Automated eosinophil %on Eosinophils/100 WBC (Bld) 0.5 % [facility] Automated eosinophil counton 11-05-2020 Eosinophils (Bld) [#/Vol] 0.1 10*3/uL 0.0-0.45 [facility] Automated erythrocyte distri bution width ratioon 11-05-2020 Erythrocyte distribution width (RBC) [Ratio] 13.0 % 11.9-15.3 [facility] Automated erythrocyte mean c orpuscular hemoglobin (mass per erythrocyte)on 11-05-2020 MCH (RBC) [Entitic mass] 30.2 pg 24.7-34.3 [facility] Automated erythrocyte mean c orpuscular hemoglobin concentration measurement (mass/volon 11-05-2020 MCHC (RBC) [Mass/Vol] 33.9 g/dL 32.0-35.0 [facility] Automated erythrocyte mean c orpuscular volumeon 11-05-2020 MCV (RBC) [Entitic vol] 89.1 fL 80-100 [facility] Automated monocyte %on 11-05 Monocytes/100 WBC (Bld) 8.8 % [facility] Automated neutrophil %on Neutrophils/100 WBC (Bld) 64.0 % [facility] Blood erythrocytes automated count (number/volume)on 11-05-2020 RBC (Bld) [#/Vol] 4.92 10*6/uL 3.60-5.00 [facility] Blood hemoglobin measurement (mass/volume)on 11-05-2020 Hemoglobin (Bld) [Mass/Vol] 14.9 g/dL 11.8-15.4 [facility] Blood leukocytes automated c ount (number/volume)on 11-05-2020 WBC (Bld) [#/Vol] 13.4 10*3/uL 4.5-11.0 [facility] Blood neutrophil count by au tomated method (number/volume)on 11-05-2020 Neutrophils (Bld) [#/Vol] 8.6 10*3/uL 1.8-7.7 [facility] Estimated glomerular filtrat ion rate (GFR) non- Americanon 11-05-2020 GFR/1.73 sq M predicted among non-blacks MDRD (S/P/Bld) [Vol rate/Area] mL/min/{1.73_m2} [facility] Hematocrit [Volume Fraction] of Blood by Automated counton 11-05-2020 Hematocrit (Bld) [Volume fraction] 43.8 % 34.0-46.4 [facility] Otheron 11-05-2020 GFR/1.73 sq M.predicted MDRD (S/P/Bld) [Vol rate/Area] mL/min/{1.73_m2} [facility] Comment on above: GFR estimated refere nce range: According to KDOQI guidelines, <60 ml/min/1.73m2 is sufficient to diagnose a patient with chronic kidney disease. Nucleated RBC/100 WBC (Bld) [Ratio] 0.2 % 0-0.5 [facility] Creatinine Clearance (Chem N/A [facility] Protein [Mass/volume] in Ser um or Plasmaon 11-05-2020 Protein [Mass/Vol] 7.2 g/dL 6.1-7.9 [facility] Serum globulin measurement b y calculation (mass/volume)on 11-05-2020 Globulin (S) [Mass/Vol] 2.8 g/dL [facility] Serum glutamate decarboxylas e 65 antibody assay (units/volume)on 11-05-2020 Glutamate decarboxylase 65 Ab Qn (S) <5.0 U/mL [facility] Comment on above: Performed at: [facility] - [facility] [id number] Director: Ana Lee MD, Phone: [phone] Serum nuclear antibody titer on 11-05-2020 Nuclear Ab (S) [Titer] Negative [facility] Comment on above: Negative <1:80 Borde rline 1:80 Positive >1:80Performed at: CB - [facility] [address] [id number] Director: Daniel Wen PhD, Phone: [phone] Nuclear Ab (S) [Titer] Negative [facility] Comment on above: Negative <1:80 Borken rline 1:80 Positive >1:80Performed at: [facility] [id number] Director: Daniel Wen PhD, Phone: [phone] Serum or plasma alanine george otransferase measurement without P-5'-P (enzymatic activion 11-05-2020 ALT No additional P-5'-P [Catalytic activity/Vol] 22 U/L 10-60 [facility] Serum or plasma albumin/glob ulin mass ratioon 11-05-2020 Albumin/Globulin [Mass ratio] 1.6 {ratio} [facility] Serum or plasma alkaline lalo sphatase measurement (enzymatic activity/volume)on 11-05-2020 ALP [Catalytic activity/Vol] 60 U/L 32-92 [facility] Serum or plasma aspartate am inotransferase measurement (enzymatic activity/volume)on 11-05-2020 AST [Catalytic activity/Vol] 23 U/L 10-42 [facility] Serum or plasma calcium ashwini urement (mass/volume)on 11-05-2020 Calcium [Mass/Vol] 9.6 mg/dL 8.2-10.2 [facility] Serum or plasma chloride jett surement (moles/volume)on 11-05-2020 Chloride [Moles/Vol] 93 mmol/L 95-114 [facility] Serum or plasma creatinine m easurement with calculation of estimated glomerular filtron 11-05-2020 Creatinine [Mass/Vol] 0.62 mg/dL 0.44-1.03 [facility] Serum or plasma glucose ashwini urement (mass/volume)on 11-05-2020 Glucose [Mass/Vol] 82 mg/dL 70-100 [facility] Comment on above: ADA recommended refe rence rangeRandom Glucose Reference Range is dependent on time and content of last meal. Glucose of more than 200 mg/dL in a nonstressed, ambulatory subject supports the diagnosis of Diabetes Mellitus. Serum or plasma potassium me asurement (moles/volume)on 11-05-2020 Potassium [Moles/Vol] 4.3 mmol/L 3.5-5.1 [facility] Serum or plasma sodium measu rement (moles/volume)on 11-05-2020 Sodium [Moles/Vol] 128 mmol/L 136-146 [facility] Serum or plasma total biliru bin measurement (mass/volume)on 11-05-2020 Bilirubin [Mass/Vol] 0.6 mg/dL 0.3-1.2 [facility] Serum or plasma total carbon dioxide measurement (moles/volume)on 11-05-2020 CO2 [Moles/Vol] 22.8 mmol/L 22.0-30.0 [facility] Serum or plasma urea nitroge n measurement (mass/volume)on 11-05-2020 Urea nitrogen [Mass/Vol] 10 mg/dL 9 [facility] Automated basophil %on 10-22 Basophils/100 WBC (Bld) 0.6 % [facility] Automated basophil counton 0 10-22-2020 Basophils (Bld) [#/Vol] 0.1 10*3/uL 0.0-0.2 [facility] Automated blood lymphocyte c ount (number/volume)on 10-22-2020 Lymphocytes (Bld) [#/Vol] 2.8 10*3/uL 1.00-4.8 [facility] Automated blood lymphocyte c ount as percentage of total leukocyteson 10-22-2020 Lymphocytes/100 WBC (Bld) 23.6 % [facility] Automated blood monocyte cou nton 10-22-2020 Monocytes (Bld) [#/Vol] 1.0 10*3/uL 0.0-0.8 [facility] Automated blood platelet cou nt (count/volume)on 10-22-2020 Platelets (Bld) [#/Vol] 292 10*3/uL 150-450 [facility] Automated blood platelet jett n volume measurementon 10-22-2020 Platelet mean volume (Bld) [Entitic vol] 9.4 fL 6.3-10.7 [facility] Automated eosinophil %on Eosinophils/100 WBC (Bld) 0.5 % [facility] Automated eosinophil counton 10-22-2020 Eosinophils (Bld) [#/Vol] 0.1 10*3/uL 0.0-0.45 [facility] Automated erythrocyte distri bution width ratioon 10-22-2020 Erythrocyte distribution width (RBC) [Ratio] 12.8 % 11.9-15.3 [facility] Automated erythrocyte mean c orpuscular hemoglobin (mass per erythrocyte)on 10-22-2020 MCH (RBC) [Entitic mass] 29.5 pg 24.7-34.3 [facility] Automated erythrocyte mean c orpuscular hemoglobin concentration measurement (mass/volon 10-22-2020 MCHC (RBC) [Mass/Vol] 32.9 g/dL 32.0-35.0 [facility] Automated erythrocyte mean c orpuscular volumeon 10-22-2020 MCV (RBC) [Entitic vol] 89.6 fL 80-100 [facility] Automated monocyte %on 10-22 Monocytes/100 WBC (Bld) 8.7 % [facility] Automated neutrophil %on Neutrophils/100 WBC (Bld) 66.6 % [facility] Blood erythrocytes automated count (number/volume)on 10-22-2020 RBC (Bld) [#/Vol] 4.90 10*6/uL 3.60-5.00 [facility] Blood hemoglobin measurement (mass/volume)on 10-22-2020 Hemoglobin (Bld) [Mass/Vol] 14.5 g/dL 11.8-15.4 [facility] Blood leukocytes automated c ount (number/volume)on 10-22-2020 WBC (Bld) [#/Vol] 12.1 10*3/uL 3.8-11.6 [facility] Blood neutrophil count by au tomated method (number/volume)on 10-22-2020 Neutrophils (Bld) [#/Vol] 8.0 10*3/uL 1.8-7.7 [facility] Body fluid albumin measureme nt (mass/volume)on 10-22-2020 Albumin (Body fld) [Mass/Vol] 4.2 g/dL 3.2-5.5 [facility] Estimated glomerular filtrat ion rate (GFR) non- Americanon 10-22-2020 GFR/1.73 sq M predicted among non-blacks MDRD (S/P/Bld) [Vol rate/Area] mL/min/{1.73_m2} [facility] Hematocrit [Volume Fraction] of Blood by Automated counton 10-22-2020 Hematocrit (Bld) [Volume fraction] 43.9 % 34.0-46.4 [facility] Hematologyon 10-22-2020 Platelets (Bld) [#/Vol] Normal Normal [facility] Otheron 10-22-2020 25-Hydroxy Vitamin D Total 13.3 ng/mL 30-100 [facility] Comment on above: VITAMIN D STATUS 25( [place])VITAMIN D RANGE (ng/mL) Deficient <20 Insufficient 20 to <30Sufficient 30 to 100Reference: Jovanni MF,Dominique ARORA, Gillian NINA, et al. Evaluation,treatment, and prevention of vitamin D deficiency; an Endocrine Society clinical practice guideline. JCEM. 2010; 96(7):1911-30. Cobalamin (Vitamin B12) [Mass/Vol] 438 pg/mL 180-914 [facility] GFR/1.73 sq M.predicted MDRD (S/P/Bld) [Vol rate/Area] mL/min/{1.73_m2} [facility] Comment on above: GFR estimated refere nce range: According to KDOQI guidelines, <60 ml/min/1.73m2 is sufficient to diagnose a patient with chronic kidney disease. Nucleated RBC/100 WBC (Bld) [Ratio] 0.0 % 0-0.5 [facility] Creatinine Clearance (Chem N/A [facility] Platelet Morphology Comment Normal Normal [facility] Valproic Acid (Depakene) Level 108.9 ug/mL 50.0-100.0 [facility] Comment on above: Last dose: - Protein [Mass/volume] in Ser um or Plasmaon 10-22-2020 Protein [Mass/Vol] 7.1 g/dL 6.1-7.9 [facility] RBC morphologyon 10-22-2020 RBC morphology finding Nom (Bld) Normal [facility] Serum globulin measurement b y calculation (mass/volume)on 10-22-2020 Globulin (S) [Mass/Vol] 2.9 g/dL [facility] Serum or plasma alanine george otransferase measurement without P-5'-P (enzymatic activion 10-22-2020 ALT No additional P-5'-P [Catalytic activity/Vol] 13 U/L 10-60 [facility] Serum or plasma albumin/glob ulin mass ratioon 10-22-2020 Albumin/Globulin [Mass ratio] 1.4 {ratio} [facility] Serum or plasma alkaline lalo sphatase measurement (enzymatic activity/volume)on 10-22-2020 ALP [Catalytic activity/Vol] 53 U/L 32-92 [facility] Serum or plasma aspartate am inotransferase measurement (enzymatic activity/volume)on 10-22-2020 AST [Catalytic activity/Vol] 15 U/L 10-42 [facility] Serum or plasma calcium ashwini urement (mass/volume)on 10-22-2020 Calcium [Mass/Vol] 9.6 mg/dL 8.2-10.2 [facility] Serum or plasma chloride jett surement (moles/volume)on 10-22-2020 Chloride [Moles/Vol] 96 mmol/L 95-114 [facility] Serum or plasma creatinine m easurement with calculation of estimated glomerular filtron 10-22-2020 Creatinine [Mass/Vol] 0.54 mg/dL 0.44-1.03 [facility] Serum or plasma glucose ashwini urement (mass/volume)on 10-22-2020 Glucose [Mass/Vol] 96 mg/dL 70-100 [facility] Comment on above: ADA recommended refe rence rangeRandom Glucose Reference Range is dependent on time and content of last meal. Glucose of more than 200 mg/dL in a nonstressed, ambulatory subject supports the diagnosis of Diabetes Mellitus. Serum or plasma potassium me asurement (moles/volume)on 10-22-2020 Potassium [Moles/Vol] 4.7 mmol/L 3.5-5.1 [facility] Serum or plasma sodium measu rement (moles/volume)on 10-22-2020 Sodium [Moles/Vol] 130 mmol/L 136-146 [facility] Serum or plasma total biliru bin measurement (mass/volume)on 10-22-2020 Bilirubin [Mass/Vol] 0.3 mg/dL 0.3-1.2 [facility] Serum or plasma total carbon dioxide measurement (moles/volume)on 10-22-2020 CO2 [Moles/Vol] 22.5 mmol/L 22.0-30.0 [facility] Serum or plasma urea nitroge n measurement (mass/volume)on 10-22-2020 Urea nitrogen [Mass/Vol] 5 mg/dL 06-26 [facility] Automated basophil %on 09-23 Basophils/100 WBC (Bld) 0.7 % [facility] Automated basophil counton 1 11-24-2019 Basophils (Bld) [#/Vol] 0.1 10*3/uL 0.0-0.2 [facility] Automated blood lymphocyte c ount (number/volume)on 09-23-2020 Lymphocytes (Bld) [#/Vol] 3.3 10*3/uL 1.00-4.8 [facility] Automated blood lymphocyte c ount as percentage of total leukocyteson 09-23-2020 Lymphocytes/100 WBC (Bld) 27.3 % [facility] Automated blood monocyte cou nton 09-23-2020 Monocytes (Bld) [#/Vol] 1.3 10*3/uL 0.0-0.8 [facility] Automated blood platelet cou nt (count/volume)on 09-23-2020 Platelets (Bld) [#/Vol] 299 10*3/uL 150-450 [facility] Automated blood platelet jett n volume measurementon 09-23-2020 Platelet mean volume (Bld) [Entitic vol] 8.3 fL 6.3-10.7 [facility] Automated eosinophil %on Eosinophils/100 WBC (Bld) 0.7 % [facility] Automated eosinophil counton 09-23-2020 Eosinophils (Bld) [#/Vol] 0.1 10*3/uL 0.0-0.45 [facility] Automated erythrocyte distri bution width ratioon 09-23-2020 Erythrocyte distribution width (RBC) [Ratio] 12.8 % 11.9-15.3 [facility] Automated erythrocyte mean c orpuscular hemoglobin (mass per erythrocyte)on 09-23-2020 MCH (RBC) [Entitic mass] 29.8 pg 24.7-34.3 [facility] Automated erythrocyte mean c orpuscular hemoglobin concentration measurement (mass/volon 09-23-2020 MCHC (RBC) [Mass/Vol] 33.4 g/dL 32.0-35.0 [facility] Automated erythrocyte mean c orpuscular volumeon 09-23-2020 MCV (RBC) [Entitic vol] 89.3 fL 80-100 [facility] Automated monocyte %on 09-23 Monocytes/100 WBC (Bld) 10.8 % [facility] Automated neutrophil %on Neutrophils/100 WBC (Bld) 60.5 % [facility] Blood erythrocytes automated count (number/volume)on 09-23-2020 RBC (Bld) [#/Vol] 4.72 10*6/uL 3.60-5.00 [facility] Blood hemoglobin measurement (mass/volume)on 09-23-2020 Hemoglobin (Bld) [Mass/Vol] 14.1 g/dL 11.8-15.4 [facility] Blood leukocytes automated c ount (number/volume)on 09-23-2020 WBC (Bld) [#/Vol] 11.9 10*3/uL 3.8-11.6 [facility] Blood neutrophil count by au tomated method (number/volume)on 09-23-2020 Neutrophils (Bld) [#/Vol] 7.2 10*3/uL 1.8-7.7 [facility] Body fluid albumin measureme nt (mass/volume)on 09-23-2020 Albumin (Body fld) [Mass/Vol] 3.9 g/dL 3.2-5.5 [facility] Estimated glomerular filtrat ion rate (GFR) non- Americanon 09-23-2020 GFR/1.73 sq M predicted among non-blacks MDRD (S/P/Bld) [Vol rate/Area] mL/min/{1.73_m2} [facility] Hematocrit [Volume Fraction] of Blood by Automated counton 09-23-2020 Hematocrit (Bld) [Volume fraction] 42.1 % 34.0-46.4 [facility] Otheron 09-23-2020 25-Hydroxy Vitamin D Total 17.0 ng/mL 30-100 [facility] Comment on above: VITAMIN D STATUS 25( [place])VITAMIN D RANGE (ng/mL) Deficient <20 Insufficient 20 to <30Sufficient 30 to 100Reference: Jovanni MF,Dominique NC, Gillian NINA, et al. Evaluation,treatment, and prevention of vitamin D deficiency; an Endocrine Society clinical practice guideline. JCEM. 2010; 96(7):1911-30. GFR/1.73 sq M.predicted MDRD (S/P/Bld) [Vol rate/Area] mL/min/{1.73_m2} [facility] Comment on above: GFR estimated refere nce range: According to KDOQI guidelines, <60 ml/min/1.73m2 is sufficient to diagnose a patient with chronic kidney disease. Nucleated RBC/100 WBC (Bld) [Ratio] 0.1 % 0-0.5 [facility] Creatinine Clearance (Chem N/A [facility] Valproic Acid (Depakene) Level 45.9 ug/mL 50.0-100.0 [facility] Comment on above: Last dose: - Protein [Mass/volume] in Ser um or Plasmaon 09-23-2020 Protein [Mass/Vol] 6.7 g/dL 6.1-7.9 [facility] Serum globulin measurement b y calculation (mass/volume)on 09-23-2020 Globulin (S) [Mass/Vol] 2.8 g/dL [facility] Serum or plasma alanine george otransferase measurement without P-5'-P (enzymatic activion 09-23-2020 ALT No additional P-5'-P [Catalytic activity/Vol] 15 U/L 10-60 [facility] Serum or plasma albumin/glob ulin mass ratioon 09-23-2020 Albumin/Globulin [Mass ratio] 1.4 {ratio} [facility] Serum or plasma alkaline lalo sphatase measurement (enzymatic activity/volume)on 09-23-2020 ALP [Catalytic activity/Vol] 52 U/L 32-92 [facility] Serum or plasma aspartate am inotransferase measurement (enzymatic activity/volume)on 09-23-2020 AST [Catalytic activity/Vol] 16 U/L 10-42 [facility] Serum or plasma calcium ashwini urement (mass/volume)on 09-23-2020 Calcium [Mass/Vol] 9.2 mg/dL 8.2-10.2 [facility] Serum or plasma chloride jett surement (moles/volume)on 09-23-2020 Chloride [Moles/Vol] 102 mmol/L 95-114 [facility] Serum or plasma creatinine m easurement with calculation of estimated glomerular filtron 09-23-2020 Creatinine [Mass/Vol] 0.67 mg/dL 0.44-1.03 [facility] Serum or plasma glucose ashwini urement (mass/volume)on 09-23-2020 Glucose [Mass/Vol] 122 mg/dL 70-100 [facility] Comment on above: ADA recommended refe rence rangeRandom Glucose Reference Range is dependent on time and content of last meal. Glucose of more than 200 mg/dL in a nonstressed, ambulatory subject supports the diagnosis of Diabetes Mellitus. Serum or plasma potassium me asurement (moles/volume)on 09-23-2020 Potassium [Moles/Vol] 4.8 mmol/L 3.5-5.1 [facility] Serum or plasma sodium measu rement (moles/volume)on 09-23-2020 Sodium [Moles/Vol] 136 mmol/L 136-146 [facility] Serum or plasma total biliru bin measurement (mass/volume)on 09-23-2020 Bilirubin [Mass/Vol] 0.2 mg/dL 0.3-1.2 [facility] Serum or plasma total carbon dioxide measurement (moles/volume)on 09-23-2020 CO2 [Moles/Vol] 23.0 mmol/L 22.0-30.0 [facility] Serum or plasma urea nitroge n measurement (mass/volume)on 09-23-2020 Urea nitrogen [Mass/Vol] 5 mg/dL - [facility] Lab - Other Lab [facility] - Other Lab Results [id number] 06-27-2019 Coding Summary CODING DATE: 019 [facility] STATUS: Home PAYOR: Medicaid HMO ADMIT [...] Piña Revised Date Saved: 06/27/2019 12:43 pm [facility] Provider Orderson 06-27-2019 Provider Orders [id number] Provider Orders [id number] .Auto Diff 1on 06-26-2019 Auto Towner % 9 % Normal -12 [facility] Comment on above: Performed By: #### 1 [id number] #### [facility] (DEFAULT) [address] [place] [address] Baso Abs# 0.0 x10 Normal 0.0-0.2 [facility] Comment on above: Performed By: #### 1 [id number] #### [facility] (DEFAULT) [address] [place] [address] Basophils/100 WBC (Bld) 0.3 % Normal 0.2-2.0 [facility] Comment on above: Performed By: #### 1 [id number] #### [facility] (DEFAULT) [address] [place] [address] Eos Abs# 0.0 x10 Normal 0.0-0.4 [facility] Comment on above: Performed By: #### 1 [id number] #### [facility] (DEFAULT) [address] [place] [address]275 Eosinophils/100 WBC (Bld) 0.4 % Low 0.9-4.0 [facility] Comment on above: Performed By: #### 1 [id number] #### [facility] (DEFAULT) [address] [place] [address] Lymphocytes (Bld) [#/Vol] 3.7 x10 High 1.3-2.9 [facility] Comment on above: Performed By: #### 1 [id number] #### [facility] (DEFAULT) [address] [place] [address] Lymphocytes/100 WBC (Bld) 29 % Normal 14-48 [facility] Comment on above: Performed By: #### 1 [id number] #### [facility] (DEFAULT) [address] [place] [address] Towner Abs# 1.2 x10 High 0.0-0.8 [facility] Comment on above: Performed By: #### 1 [id number] #### [facility] (DEFAULT) [address] [place] [address] Neut Abs# 7.7 x10 Normal 1.5-9.2 [facility] Comment on above: Performed By: #### 1 [id number] #### [facility] (DEFAULT) [address] [place] [address] Neutrophils/100 WBC (Bld) 61 % Normal 44-88 [facility] Comment on above: Performed By: #### 1 [id number] #### [facility] (DEFAULT) [address] [place] [address] CBC w/ Auto Diffon 9 Erythrocyte distribution width (RBC) [Ratio] 14.0 % Normal 11.5-15.0 [facility] Comment on above: Performed By: #### 1 [id number] #### [facility] (DEFAULT) [address] [place] [address] Hematocrit (Bld) [Volume fraction] 44.8 % High 33.7-40.4 [facility] Comment on above: Performed By: #### 1 [id number] #### [facility] (DEFAULT) [address] [place] [address] Hemoglobin (Bld) [Mass/Vol] 15.1 g/dL Normal 11.3-15.9 [facility] Comment on above: Performed By: #### 1 [id number] #### [facility] (DEFAULT) [address] [place] [address] Man Diff? Auto Normal [facility] Comment on above: Performed By: #### 1 [id number] #### [facility] (DEFAULT) [address] [place] [address] MCH (RBC) [Entitic mass] 30 pg Normal 24-34 [facility] Comment on above: Performed By: #### 1 [id number] #### [facility] (DEFAULT) [address] [place] [address] MCHC (RBC) [Mass/Vol] 34 g/dL Normal 26-37 [facility] [facility] Comment on above: Performed By: #### 1 [id number] #### [facility] (DEFAULT) [address] [place] [address] [id number] MCV (RBC) [Entitic vol] 89 fL Normal 81-100 [facility] Comment on above: Performed By: #### 1 [id number] #### [facility] (DEFAULT) [address] [place] [address] [id number] Platelet mean volume (Bld) [Entitic vol] 9.5 fL Normal 6.3-10.2 [facility] Comment on above: Performed By: #### 1 [id number] #### [facility] (DEFAULT) [address] [place] [address] [id number] Platelets (Bld) [#/Vol] 301 x10 Normal 138-427 M [facility] Comment on above: Performed By: #### 1 [id number] #### [facility] (DEFAULT) [address] [place] [address] [id number] RBC (Bld) [#/Vol] 5.04 x10 Normal 3.70-5.30 [facility] Comment on above: Performed By: #### 1 [id number] #### [facility] (DEFAULT) [address] [place] [address] [id number] WBC (Bld) [#/Vol] 12.6 x10 [facility] Comment on above: Performed By: #### 1 [id number] #### [facility] (DEFAULT) [address] [place] [phone] Lab - Other Lab [facility] - Other Lab Results [id number][facility] 05-16-2019 Outside Records [id number]#[facility] Outside Records [id number][facility] Date Time Vital Sign Value Performing Clinician Facility 07-09-2024 15:23-0400 Diastolic blood pressure 85 mm[Hg] Ambrose Cedeño [facility] 07-09-2024 15:23-0400 Heart rate 80 /min Ambrose Cedeño [facility] 07-09-2024 15:23-0400 Mean blood pressure 97 mm[Hg] Ambrose Cedeño [facility] 07-09-2024 15:23-0400 Respiratory rate 18 /min Ambrose Cedeño [facility] 07-09-2024 15:23-0400 SaO2% (BldA) [Mass fraction] 99 % Ambrose Cedeño [facility] 07-09-2024 15:23-0400 Systolic blood pressure 120 mm[Hg] Ambrose Cedeño [facility] 07-09-2024 14:45-0400 Diastolic blood pressure 78 mm[Hg] Ambrose Advidson [facility] 07-09-2024 14:45-0400 Heart rate 83 /min Ambrose Davidson [facility] 07-09-2024 14:45-0400 Hourly Rounding Ambrose Davidson [facility] 07-09-2024 14:45-0400 Mean blood pressure 91 mm[Hg] Ambrose Davidson [facility] 07-09-2024 14:45-0400 Promise to Return Ambrose Davidson [facility] 07-09-2024 14:45-0400 Respiratory rate 18 /min Ambrose Davidson [facility] 07-09-2024 14:45-0400 SaO2% (BldA) [Mass fraction] 99 % Ambrose Davidson [facility] 07-09-2024 14:45-0400 Systolic blood pressure 118 mm[Hg] Ambrose Davidson [facility] 07-09-2024 13:45-0400 Diastolic blood pressure 89 mm[Hg] Ambrose Davidson [facility] 07-09-2024 13:45-0400 Heart rate 79 /min Ambrose Davidson [facility] 07-09-2024 13:45-0400 Hourly Rounding Ambrose Davidson [facility] 07-09-2024 13:45-0400 Mean blood pressure 95 mm[Hg] Ambrose Davidson [facility] 07-09-2024 13:45-0400 Promise to Return Ambrose Davidson [facility] 07-09-2024 13:45-0400 Respiratory rate 18 /min Ambrose Cedeño [facility] 07-09-2024 13:45-0400 SaO2% (BldA) [Mass fraction] 99 % Ambrose Cedeño [facility] 07-09-2024 13:45-0400 Systolic blood pressure 106 mm[Hg] Ambrose Cedeño [facility] 07-09-2024 12:41-0400 Body temperature 98.24 [degF] Ambrose Cedeño [facility] 07-09-2024 12:41-0400 Heart rate 82 /min Ambrose Cedeño [facility] 07-06-2024 20:55-0400 Diastolic blood pressure 84 mm[Hg] [employer]it [employer] Work Phone: [facility] 07-06-2024 20:55-0400 Heart rate 98 /min [employer] Ajit Spasic Work Phone: [facility] 07-06-2024 20:55-0400 Respiratory rate 18 /min [employer] Ajit Spasic Work Phone: [facility] 07-06-2024 20:55-0400 SaO2% (BldA) [Mass fraction] 97 % [employer] Ajit Spasic Work Phone: [facility] 07-06-2024 20:55-0400 Systolic blood pressure 119 mm[Hg] [employer] Ajit Spasic Work Phone: [facility] 07-06-2024 16:05-0400 Body height 166.37 cm [employer] Ajit Spasic Work Phone: [facility] 07-06-2024 16:05-0400 Body temperature 98.2 [degF] [employer] Ajit Spasic Work Phone: [facility] 07-06-2024 16:05-0400 Body weight 66.67 kg [employer] Ajit Spasic Work Phone: [facility] 04-11-2024 14:08-0400 Diastolic blood pressure 70 mm[Hg] [employer] Ajit Spasic Work Phone: [facility] 04-11-2024 14:08-0400 Heart rate 83 /min [employer] Ajit Spasic Work Phone: [facility] 04-11-2024 14:08-0400 SaO2% (BldA) [Mass fraction] 99 % [employer] Ajit Spasic Work Phone: [facility] 04-11-2024 14:08-0400 Systolic blood pressure 118 mm[Hg] [employer] Ajit Spasic Work Phone: [facility] 03-16-2024 09:55-0400 Diastolic blood pressure 87 mm[Hg] [employer] Ajit Spasic Work Phone: [facility] 03-16-2024 09:55-0400 Heart rate 66 /min [employer] Ajit Spasic Work Phone: [facility] 03-16-2024 09:55-0400 Respiratory rate 20 /min [employer] Ajit Spasic Work Phone: [facility] 03-16-2024 09:55-0400 SaO2% (BldA) [Mass fraction] 99 % [employer] Ajit Spasic Work Phone: [facility] 03-16-2024 09:55-0400 Systolic blood pressure 138 mm[Hg] [employer] Ajit Spasic Work Phone: [facility] 03-16-2024 07:01-0400 Body height 166.37 cm [employer] Ajit Spasic Work Phone: [facility] 03-16-2024 07:01-0400 Body temperature 98.3 [degF] [employer] Ajit Spasic Work Phone: [facility] 03-16-2024 07:01-0400 Body weight 69.85 kg [employer] Ajit Spasic Work Phone: [facility] 03-08-2024 14:14-0400 Diastolic blood pressure 70 mm[Hg] [employer] Ajit Spasic Work Phone: [facility] 03-08-2024 14:14-0400 Heart rate 95 /min [employer] Ajit Spasic Work Phone: [facility] 03-08-2024 14:140400 SaO2% (BldA) [Mass fraction] 99 % [employer] Ajit Spasic Work Phone: [facility] 03-08-2024 14:14-0400 Systolic blood pressure 122 mm[Hg] [employer] Ajit Spasic Work Phone: [facility] 03-01-2024 12:19-0400 Diastolic blood pressure 75 mm[Hg] [employer] Ajit Spasic Work Phone: [facility] 03-01-2024 12:19-0400 Heart rate 69 /min [employer] Ajit Spasic Work Phone: [facility] 03-01-2024 12:19-0400 Inhaled oxygen flow rate 3 L/min [employer] Ajit Spasic Work Phone: [facility] 03-01-2024 12:19-0400 SaO2% (BldA) [Mass fraction] 100 % [employer] Ajit Spasic Work Phone: [facility] 03-01-2024 12:19-0400 Systolic blood pressure 130 mm[Hg] [employer] Ajit Spasic Work Phone: [facility] 03-01-2024 12:13-0400 Respiratory rate 18 /min [employer] Ajit Spasic Work Phone: [facility] 03-01-2024 09:54-0400 Body height 166.37 cm [employer] Ajit Spasic Work Phone: [facility] 03-01-2024 09:54-0400 Body weight 69.85 kg [employer] Ajit Spasic Work Phone: [facility] 02-21-2024 10:41-0400 Body weight 69.11 kg [employer] Ajit Spasic Work Phone: [phone] [place] [address] 02-21-2024 10:41-0400 Diastolic blood pressure 80 mm[Hg] [employer] Ajit Spasic Work Phone: [facility] 02-21-2024 10:41-0400 Systolic blood pressure 124 mm[Hg] [employer] Ajit Sp[employer] Work Phone: [facility] 10-16-2023 13:00-0500 Diastolic blood pressure 94 mm[Hg] [employer] Ajit Spasic Work Phone: [facility] 10-16-2023 13:00-0500 Heart rate 70 /min [employer] Ajit Spasic Work Phone: [facility] 10-16-2023 13:00-0500 Respiratory rate 16 /min [employer] Ajit Spasic Work Phone: [facility] 10-16-2023 13:00-0500 SaO2% (BldA) [Mass fraction] 97 % [employer] Ajit Spasic Work Phone: [facility] 10-16-2023 13:00-0500 Systolic blood pressure 168 mm[Hg] [employer] Ajit Spasic Work Phone: [facility] 10-16-2023 09:33-0500 Body height 165.1 cm [employer] Ajit Spasic Work Phone: [facility] 10-16-2023 09:33-0500 Body temperature 97.4 [degF] [employer] Ajit Spasic Work Phone: [facility] 10-16-2023 09:33-0500 Body weight 77.3 kg [employer] Ajit Spasic Work Phone: [facility] 10-09-2023 16:00-0500 Body temperature 97.7 [degF] [employer] Ajit Spasic Work Phone: [facility] 10-09-2023 16:00-0500 Diastolic blood pressure 80 mm[Hg] [employer] Ajit Spasic Work Phone: [facility] 10-09-2023 16:00-0500 Heart rate 85 /min [employer] Ajit Spasic Work Phone: [facility] 10-09-2023 16:00-0500 Respiratory rate 18 /min [employer] Ajit Spasic Work Phone: [facility] 10-09-2023 16:00-0500 SaO2% (BldA) [Mass fraction] 99 % [employer] Ajit Spasic Work Phone: [facility] 10-09-2023 16:00-0500 Systolic blood pressure 117 mm[Hg] [employer] Ajit Spasic Work Phone: [facility] 10-08-2023 01:12-0500 Body height 165.1 cm [employer] Ajit Spasic Work Phone: [facility] 10-08-2023 01:12-0500 Body weight 76.65 kg [employer] Ajit Spasic Work Phone: [facility] 09-28-2023 13:30-0500 Diastolic blood pressure 87 mm[Hg] [employer] Ajit Spasic Work Phone: [facility] 09-28-2023 13:30-0500 Heart rate 94 /min [employer] Ajit Spasic Work Phone: [facility] 09-28-2023 13:30-0500 Respiratory rate 18 /min [employer] Ajit Spasic Work Phone: [facility] 09-28-2023 13:30-0500 SaO2% (BldA) [Mass fraction] 94 % [employer] Ajit Spasic Work Phone: [facility] 09-28-2023 13:30-0500 Systolic blood pressure 131 mm[Hg] [employer] Ajit Spasic Work Phone: [facility] 09-28-2023 09:30-0500 Body temperature 97.9 [degF] [employer] Ajit Spasic Work Phone: [facility] 09-28-2023 08:51-0500 Inhaled oxygen flow rate 10 L/min [employer] Ajit Spasic Work Phone: [facility] 09-28-2023 07:20-0500 Body height 166.37 cm [employer] Ajit Spasic Work Phone: [facility] 09-28-2023 07:20-0500 Body mass index (BMI) [Ratio] 27.7 kg/m2 [employer] Ajit Spasic Work Phone: [facility] 09-28-2023 07:20-0500 Body weight 76.7 kg [employer] Ajit Spasic Work Phone: [facility] 07-13-2023 13:55-0400 Diastolic blood pressure 93 mm[Hg] NA [employer] Work Phone: [facility] 07-13-2023 13:55-0400 Heart rate 87 /min NA [employer] Work Phone: [facility] 07-13-2023 13:55-0400 Respiratory rate 16 /min NA [employer] Work Phone: [facility] 07-13-2023 13:55-0400 SaO2% (BldA) [Mass fraction] 96 % NA [employer] Work Phone: [facility] 07-13-2023 13:55-0400 Systolic blood pressure 133 mm[Hg] NA [employer] Work Phone: [facility] 07-13-2023 13:16-0400 Body temperature 98 [degF] NA [employer] Work Phone: [facility] 07-13-2023 12:51-0400 Inhaled oxygen flow rate 10 L/min NA [employer] Work Phone: [facility] 07-13-2023 12:17-0400 Body height 165.1 cm NA [employer] Work Phone: [facility] 07-13-2023 12:17-0400 Body mass index (BMI) [Ratio] 28.2 kg/m2 NA [employer] Work Phone: [facility] 07-13-2023 12:17-0400 Body weight 77 kg NA [employer] Work Phone: [facility] 05-05-2023 10:18-0400 Diastolic blood pressure 90 mm[Hg] [employer] Ajit Spasic Work Phone: [facility] 05-05-2023 10:18-0400 Heart rate 82 /min [employer] Ajit Spasic Work Phone: [facility] 05-05-2023 10:18-0400 Respiratory rate 18 /min [employer] Ajit Spasic Work Phone: [facility] 05-05-2023 10:18-0400 SaO2% (BldA) [Mass fraction] 98 % [employer] Ajit Spasic Work Phone: [facility] 05-05-2023 10:18-0400 Systolic blood pressure 130 mm[Hg] [employer] Ajit Spasic Work Phone: [facility] 05-05-2023 09:39-0400 Inhaled oxygen flow rate 3 L/min [employer] Ajit Spasic Work Phone: [facility] 05-05-2023 08:43-0400 Body height 165.1 cm [employer] Ajit Spasic Work Phone: [facility] 05-05-2023 08:43-0400 Body weight 74.84 kg [employer] Ajit Spasic Work Phone: [facility] 04-14-2023 12:08-0400 Diastolic blood pressure 89 mm[Hg] [employer] Ajit Spasic Work Phone: [facility] 04-14-2023 12:08-0400 Heart rate 71 /min [employer] Ajit Spasic Work Phone: [facility] 04-14-2023 12:08-0400 Respiratory rate 16 /min [employer] Ajit Spasic Work Phone: [facility] 04-14-2023 12:08-0400 SaO2% (BldA) [Mass fraction] 97 % [employer] Ajit Spasic Work Phone: [facility] 04-14-2023 12:08-0400 Systolic blood pressure 124 mm[Hg] [employer] Ajit Spasic Work Phone: [facility] 04-14-2023 11:29-0400 Inhaled oxygen flow rate 3 L/min [employer] Ajit Spasic Work Phone: [facility] 04-14-2023 10:19-0400 Body height 165.1 cm [employer] Ajit Spasic Work Phone: [facility] 04-14-2023 10:19-0400 Body weight 74.84 kg [employer] Ajit Spasic Work Phone: [facility] 04-02-2023 11:30-0400 Body height 166.37 cm Kyler Miramontes Other [employer] Other 04-02-2023 11:30-0400 Body mass index (BMI) [Ratio] 27.04 kg/m2 Kyler Miramontes Other [employer] Other 04-02-2023 11:30-0400 Body weight 74.84 kg Kyler Miramontes Other [employer] Other 04-02-2023 11:30-0400 Diastolic blood pressure 80 mm[Hg] Kyler Miramontes Other [employer] Other 04-02-2023 11:30-0400 Systolic blood pressure 110 mm[Hg] Kyler Miramontes Other [employer] Other 11-18-2022 11:59-0500 Diastolic blood pressure 94 mm[Hg] Services [facility] [employer] Work Phone: [facility] 11-18-2022 11:59-0500 Heart rate 85 /min [facility] [employer] Work Phone: [facility] 11-18-2022 11:59-0500 Respiratory rate 16 /min [facility] [employer] Work Phone: [facility] 11-18-2022 11:59-0500 SaO2% (BldA) [Mass fraction] 98 % [facility] [employer] Work Phone: [facility] 11-18-2022 11:59-0500 Systolic blood pressure 140 mm[Hg] Services [facility] [employer] Work Phone: [facility] 11-18-2022 11:21-0500 Inhaled oxygen flow rate 3 L/min [facility] [employer] Work Phone: [facility] 11-18-2022 09:23-0500 Body height 166.37 cm [facility] [employer] Work Phone: [facility] 11-18-2022 09:23-0500 Body weight 74.38 kg [facility] [employer] Work Phone: [facility] 11-03-2022 11:30-0500 Body height 166.37 cm Kyler Miramontes Other [id number] [facility] [employer] Other 11-03-2022 11:30-0500 Diastolic blood pressure 80 mm[Hg] Kyler Miramontes Other [id number] [facility] [employer] Other 11-03-2022 11:30-0500 SaO2% (BldA) [Mass fraction] 98 % Kyler Miramontes Other [id number] [facility] [employer] Other 11-03-2022 11:30-0500 Systolic blood pressure 118 mm[Hg] Kyler Miramontes Other [facility] [employer] Other 07-31-2022 11:50-0400 Blood Pressure Location [facility] 07-31-2022 11:50-0400 Diastolic blood pressure 82 mm[Hg] Joshua [facility] 07-31-2022 11:50-0400 Heart rate 70 /min Joshua [facility] 07-31-2022 11:50-0400 Respiratory rate 16 /min Joshua [facility] 07-31-2022 11:50-0400 Systolic blood pressure 136 mm[Hg] Joshua [facility] 05-27-2022 09:13-0400 Body temperature 97.9 [degF] [facility] Work Phone: [facility] 05-27-2022 09:13-0400 Body weight 77.11 kg [facility] Work Phone: [facility] 05-27-2022 09:13-0400 Diastolic blood pressure 82 mm[Hg] [facility] Work Phone: [facility] 05-27-2022 09:13-0400 Heart rate 70 /min [facility] Work Phone: [facility] 05-27-2022 09:13-0400 Respiratory rate 20 /min [facility] Work Phone: [facility] 05-27-2022 09:130400 SaO2% (BldA) [Mass fraction] 98 % [facility] Work Phone: [facility] 05-27-2022 09:13-0400 Systolic blood pressure 121 mm[Hg] Services [facility] Work Phone: [facility] 05-27-2022 08:06-0400 Body height 166.[address] [facility] Work Phone: [facility] 05-01-2022 22:19-0400 Diastolic blood pressure 70 mm[Hg] Services [facility] Work Phone: [facility] 05-01-2022 22:19-0400 Heart rate 86 /min [facility] Work Phone: [facility] 05-01-2022 22:19-0400 Respiratory rate 18 /min [facility] Work Phone: [facility] 05-01-2022 22:19-0400 SaO2% (BldA) [Mass fraction] 99 % Services [facility] Work Phone: [facility] 05-01-2022 22:19-0400 Systolic blood pressure 138 mm[Hg] Services [facility] Work Phone: [facility] 05-01-2022 17:09-0400 Body height 166.37 cm [facility] Work Phone: [facility] 05-01-2022 17:09-0400 Body temperature 99.4 [degF] Services [facility] Work Phone: [facility] 05-01-2022 17:09-0400 Body weight 77.[address] [facility] Work Phone: [facility] 04-29-2022 14:29-0400 Body height 165.[address] [facility] Work Phone: [facility] 04-29-2022 14:29-0400 Body temperature 97.8 [degF] Services [facility] Work Phone: [facility] 04-29-2022 14:29-0400 Body weight 68.03 kg [facility] Work Phone: [facility] 04-29-2022 14:29-0400 Diastolic blood pressure 83 mm[Hg] Services [facility] Work Phone: [facility] 04-29-2022 14:29-0400 Heart rate 70 /min [facility] Work Phone: [facility] 04-29-2022 14:29-0400 Respiratory rate 16 /min [facility] Work Phone: [facility] 04-29-2022 14:29-0400 SaO2% (BldA) [Mass fraction] 100 % Services [facility] Work Phone: [facility] 04-29-2022 14:29-0400 Systolic blood pressure 131 mm[Hg] Services [facility] Work Phone: [facility] 02-19-2022 15:45-0400 Body height 166.37 cm Kyler Fe Other [employer] Other 02-19-2022 15:45-0400 Body mass index (BMI) [Ratio] 27.36 kg/m2 Kyler Miramontes Other [employer] Other 02-19-2022 15:45-0400 Body weight 75.75 kg Kyler Miramontes Other [employer] Other 02-19-2022 15:45-0400 Diastolic blood pressure 64 mm[Hg] Kyler Miramontes Other [employer] Other 02-19-2022 15:45-0400 Systolic blood pressure 110 mm[Hg] Kyler Miramontes Other [employer] Other 01-28-2022 14:00-0400 Body height 166.37 cm Kyler Miramontes Other [employer] Other 01-28-2022 14:00-0400 Body mass index (BMI) [Ratio] 27.27 kg/m2 Kyler Miramontes Other [employer] Other 01-28-2022 14:00-0400 Body weight 75.48 kg Kyler Miramontes Other [employer] Other 01-28-2022 14:00-0400 Diastolic blood pressure 68 mm[Hg] Kyler Miramontes Other [employer] Other 01-28-2022 14:00-0400 Systolic blood pressure 112 mm[Hg] Kyler Miramontes Other [employer] Other 01-14-2022 12:00-0400 Body height 166.37 cm Girish Callaway Other [employer] Other 01-14-2022 12:00-0400 Body mass index (BMI) [Ratio] 25.23 kg/m2 Girish Callaway Other [id number] [facility] [employer] Other 01-14-2022 12:00-0400 Body weight 69.85 kg Girish Callaway Other [employer] Other Encounters Encounter Date Encounter Type Care Provider Facility Start: 09-06-2024 End: 09-06-2024 ambulatory Ajit E Spasic Facility:[facility] Start: 09-05-2024 End: 09-05-2024 ambulatory Abi L Ly Facility:[facility] Start: 07-24-2024 End: 07-24-2024 Patient encounter procedure ASBESTOS TEXTILE SUPERVISOR-C Ajit Spasic Work Phone: [facility]-Ultrasound Cntr for Breast Car Start: 07-24-2024 End: 07-24-2024 ambulatory ASBESTOS TEXTILE SUPERVISOR-C Ajit E Spasic Work Phone: [facility] Work Phone: Start: 07-09-2024 End: 07-09-2024 Emergency department patient visit Ambrose Cedeño Facility[place] Start: 07-06-2024 End: 07-06-2024 Emergency department patient visit ASBESTOS TEXTILE SUPERVISOR-C Ajit Spasic Work Phone: [facility]-Emergency Room Work Phone: Start: 07-04-2024 End: 07-04-2024 Patient encounter procedure ASBESTOS TEXTILE SUPERVISOR-C Ajit Spasic Work Phone: [facility]-Lab [place] Work Phone: Start: 07-04-2024 End: 07-04-2024 ambulatory ASBESTOS TEXTILE SUPERVISOR-C Ajit E Spasic Work Phone: [facility] Work Phone: Start: 06-08-2024 End: 06-08-2024 Patient encounter procedure ASBESTOS TEXTILE SUPERVISOR-C Ajit Spasic Work Phone: [facility]-MRI [address] Work Phone: Start: 06-08-2024 End: 06-08-2024 ambulatory ASBESTOS TEXTILE SUPERVISOR-C Ajit E Spasic Work Phone: [facility] Work Phone: Start: 05-16-2024 End: 05-16-2024 ambulatory ASBESTOS TEXTILE SUPERVISOR-C Ajit E Spasic Work Phone: [facility] Work Phone: Start: 05-16-2024 End: 05-16-2024 Departed Referred ASBESTOS TEXTILE SUPERVISOR-C Ajit Spasic Work Phone: [facility][1] Start: 04-11-2024 End: 04-11-2024 ambulatory ASBESTOS TEXTILE SUPERVISOR-C Ajit E Spasic Work Phone: [facility] Work Phone: Start: 04-11-2024 End: 04-11-2024 Patient encounter procedure ASBESTOS TEXTILE SUPERVISOR-C Ajit Spasic Work Phone: [facility] Work Phone: Start: 03-16-2024 Non-patient / Non-visit ASBESTOS TEXTILE SUPERVISOR-C Ajit Spasic Work Phone: [facility] G[facility] Work Phone: Start: 03-16-2024 End: 03-16-2024 Admission to same day surgery center ASBESTOS TEXTILE SUPERVISOR-C Ajit Spasic Work Phone: [facility]-Digestive Health Work Phone: Start: 03-16-2024 End: 03-16-2024 ambulatory ASBESTOS TEXTILE SUPERVISOR-C Ajit E Spasic Work Phone: [facility] Work Phone: Start: 03-08-2024 End: 03-08-2024 ambulatory ASBESTOS TEXTILE SUPERVISOR-C Ajit E Spasic Work Phone: [facility] Work Phone: Start: 03-08-2024 End: 03-08-2024 Patient encounter procedure ASBESTOS TEXTILE SUPERVISOR-C Ajit Spasic Work Phone: [facility] Work Phone: Start: 03-02-2024 End: 03-02-2024 Patient encounter procedure ASBESTOS TEXTILE SUPERVISOR-C Ajit Spasic Work Phone: [facility]-XRay [facility] Work Phone: Start: 03-02-2024 End: 03-02-2024 ambulatory ASBESTOS TEXTILE SUPERVISOR-C Ajit E Spasic Work Phone: [facility] Work Phone: Start: 03-01-2024 Non-patient / Non-visit ASBESTOS TEXTILE SUPERVISOR-C Ajit Spasic Work Phone: [facility] Work Phone: Start: 03-01-2024 End: 03-01-2024 Admission to same day surgery center ASBESTOS TEXTILE SUPERVISOR-C Ajit Spasic Work Phone: [facility]-Digestive Health Work Phone: Start: 03-01-2024 End: 03-01-2024 ambulatory ASBESTOS TEXTILE SUPERVISOR-C Ajit E Spasic Work Phone: [facility] Work Phone: Start: 02-21-2024 End: 02-21-2024 ambulatory ASBESTOS TEXTILE SUPERVISOR-C Ajit E Spasic Work Phone: [facility] Work Phone: Start: 02-21-2024 End: 02-21-2024 Patient encounter procedure ASBESTOS TEXTILE SUPERVISOR-C Ajit Spasic Work Phone: [facility] Work Phone: Start: 02-09-2024 End: 02-09-2024 Patient encounter procedure ASBESTOS TEXTILE SUPERVISOR-C Ajit Spasic Work Phone: [facility]-Ultrasound Cntr for Breast Car Start: 02-09-2024 End: 02-09-2024 ambulatory ASBESTOS TEXTILE SUPERVISOR-C Ajit E Spasic Work Phone: [facility] Work Phone: Start: 02-04-2024 End: 02-04-2024 Patient encounter procedure ASBESTOS TEXTILE SUPERVISOR-C Ajit Spasic Work Phone: [facility]-Center for Breast Care Work Phone: Start: 02-04-2024 End: 02-04-2024 ambulatory ASBESTOS TEXTILE SUPERVISOR-C Ajit E Spasic Work Phone: [facility] Work Phone: Start: 01-21-2024 End: 01-21-2024 Patient encounter procedure ASBESTOS TEXTILE SUPERVISOR-C Ajit Spasic Work Phone: [facility]-Ultrasound [place] Work Phone: Start: 01-21-2024 End: 01-21-2024 ambulatory ASBESTOS TEXTILE SUPERVISOR-C Ajit E Spasic Work Phone: [facility] Work Phone: Start: 01-18-2024 End: 01-18-2024 ambulatory Ajit E Spasic [facility] Work Phone: Start: 01-18-2024 End: 01-18-2024 Departed Referred ASBESTOS TEXTILE SUPERVISOR-C Ajit Spasic Work Phone: [facility][1] Start: 10-20-2023 End: 10-20-2023 ambulatory CARRI A VISCI Not Available Start: 10-16-2023 End: 10-16-2023 Emergency department patient visit ASBESTOS TEXTILE SUPERVISOR-C Ajit Spasic Work Phone: [facility]-Emergency Room Work Phone: Start: 10-07-2023 End: 10-09-2023 Evaluation and management of inpatient ASBESTOS TEXTILE SUPERVISOR-C Ajit Spasic Work Phone: [facility]-[address] [place] Work Phone: Start: 09-28-2023 End: 09-28-2023 Admission to same day surgery center ASBESTOS TEXTILE SUPERVISOR-C Ajit Spasic Work Phone: [facility]-Surgery Center [place] Start: 09-28-2023 End: 09-28-2023 ambulatory Ajit E Spasic Facility:[facility] Start: 09-16-2023 End: 09-16-2023 Patient encounter procedure ASBESTOS TEXTILE SUPERVISOR-C Ajit Spasic Work Phone: [facility]-Pre-Surgical Testing Work Phone: Start: 09-16-2023 End: 09-16-2023 ambulatory ASBESTOS TEXTILE SUPERVISOR-C Ajit E Spasic Work Phone: [facility] Work Phone: Start: 07-13-2023 End: 07-13-2023 Admission to same day surgery center NA [employer] Work Phone: [facility]-Surgery Center [place] Start: 07-13-2023 End: 07-13-2023 ambulatory . [employer] Work Phone: [facility] Work Phone: Start: 06-30-2023 End: 06-30-2023 ambulatory . [employer] Work Phone: [facility] Work Phone: Start: 06-30-2023 End: 06-30-2023 Patient encounter procedure NA [employer] Work Phone: [facility]-Pre-Surgical Testing Work Phone: Start: 05-05-2023 (PROC) [facility]EDURE [facility] Start: 05-05-2023 End: 05-05-2023 Admission to same day surgery center ASBESTOS TEXTILE SUPERVISOR-C Ajit Spasic Work Phone: [facility]-Digestive Health Work Phone: Start: 05-05-2023 End: 05-05-2023 ambulatory NON STAFF [facility] Work Phone: Start: 05-04-2023 End: 05-04-2023 ambulatory NON STAFF [facility] Work Phone: Start: 05-04-2023 End: 05-04-2023 Departed Referred ASBESTOS TEXTILE SUPERVISOR-C Ajit Lariossic Work Phone: [facility] Start: 04-26-2023 End: 04-26-2023 Patient encounter procedure ASBESTOS TEXTILE SUPERVISOR-C Ajit Lariossic Work Phone: [facility]-Lab [place] Work Phone: Start: 04-14-2023 (PROC) PROCEDURE Kyler Miramontes [facility] Medical OutPt Start: 04-14-2023 End: 04-14-2023 Admission to same day surgery center ASBESTOS TEXTILE SUPERVISOR-C Ajit Spasic Work Phone: [facility]-Dig[facility]ive Health Work Phone: Start: 04-14-2023 End: 04-14-2023 ambulatory NON STAFF [facility] [employer] Other Start: 04-02-2023 End: 04-02-2023 ambulatory Kyler Miramontes Other [facility] [employer] Other Start: 04-02-2023 Office outpatient visit 25 minutes Kyler Miramontes [facility] [place] Start: 02-15-2023 End: 02-15-2023 ambulatory AJIT SPASIC Facility:[facility] Start: 02-09-2023 End: 02-09-2023 ambulatory [facility] Work Phone: [facility] Work Phone: Start: 02-09-2023 End: 02-09-2023 Departed Referred Services [facility] Work Phone: [facility] Start: 01-29-2023 End: 01-29-2023 ambulatory AJIT MILLANJorge Facility:[facility] Start: 11-18-2022 (PROC) PROCEDURE Kyler Miramontes [facility] Medical OutPt Start: 11-18-2022 End: 11-18-2022 Admission to same day surgery center Services [facility] Work Phone: [facility]-Digestive [facility] Work Phone: Start: 11-18-2022 End: 11-18-[address] [facility] Work Phone: [facility] Work Phone: Start: 11-12-2022 End: 11-12-[address] DERICK BORRERO . Facility:[facility] Start: 11-05-2022 End: 11-05-[address] [facility] Work Phone: [facility] Work Phone: Start: 11-05-2022 End: 11-05-[address] [facility] Work Phone: [facility] Start: 11-03-2022 End: 11-03-2022 ambulatory Kyler Fe Other [facility] [employer] Other Start: 11-03-2022 Office outpatient visit 25 minutes Kyler Miramontes [facility] Start: 11-03-2022 End: 11-03-2022 Patient encounter procedure Services [facility] Work Phone: [facility]-XRay [place] Work Phone: Start: 11-02-2022 End: 11-02-2022 Patient encounter procedure Joshua SILVEIRA [facility] Start: 09-29-2022 End: 09-29-2022 Patient encounter procedure Joshua SILVEIRA [facility] [place] Start: 08-24-2022 End: 08-24-2022 Patient encounter procedure Joshua SILVEIRA [facility] Start: 07-31-2022 End: 07-31-2022 Patient encounter procedure Joshua SILVEIRA [facility] [place] Start: 07-08-2022 End: 07-08-2022 ambulatory [facility] Work Phone: [facility] Work Phone: Start: 07-08-2022 End: 07-08-2022 Patient encounter procedure [facility] Work Phone: [facility]Lab [place] Start: 06-24-2022 End: 06-24-2022 Patient encounter procedure [facility] Work Phone: [facility]-MRI [place] Start: 06-17-2022 End: 06-17-2022 Patient encounter procedure [facility] Work Phone: [facility]-Ultrasound [place] Start: 06-09-2022 End: 06-09-2022 Patient encounter procedure [facility] Work Phone: [facility]-Ultrasound [place] Start: 06-02-2022 End: 06-02-2022 Departed Referred Services [facility] Work Phone: [facility] Start: 05-27-2022 End: 05-27-2022 Registered Recurring Services [facility] Work Phone: [facility]-Cancer Center Start: 05-07-2022 End: 05-07-2022 Patient encounter procedure [facility] Work Phone: [facility] [place] Start: 05-01-2022 End: 05-01-2022 Emergency department patient visit Services [facility] Work Phone: [facility]-Emergency Room Start: 05-01-2022 End: 05-01-2022 Patient encounter procedure Services [facility] Work Phone: [facility]-XRay [place] Start: 04-30-2022 End: 04-30-[address] [facility] Work Phone: [facility] Services Start: 04-29-2022 End: 04-29-2022 Emergency department patient visit Services [facility] Work Phone: [facility]-Emergency Room Start: 03-04-2022 (Procedure) Short Kyler Miramontes [employer] [facility] Start: 03-04-2022 End: 03-04-2022 ambulatory Kyler Miramontes Other [employer] Other Start: 02-19-2022 End: 02-19-2022 ambulatory Kyler Fe Other [employer] Other Start: 02-19-2022 Office outpatient visit 25 minutes Kyler Fe [facility] Start: 02-11-2022 (Procedure) Short Kyler Miramontes [employer] [facility] Start: 02-11-2022 End: 02-11-2022 ambulatory Kyler Fe Other [employer] Other Start: 01-28-2022 End: 01-28-2022 ambulatory Kyler Fe Other [employer] Other Start: 01-28-2022 Office consultation new/estab patient 60 min Kyler Fe [facility] Start: 01-14-2022 End: 01-14-2022 ambulatory Girish Callaway Other [employer] Other Start: 01-14-2022 Office outpatient ne w 30 minutes Girish Callaway [facility] Neurosurgery Start: 01-21-2021 End: 01-21-[address] [facility] Work Phone: -GF [facility] Services Start: 12-24-2020 End: 12-24-2020 Patient encounter procedure Ajit Lariossic -MRI [facility] Start: 12-03-2020 End: 12-03-2020 Patient encounter procedure Ajit Spasic -MRI [facility] Start: 12-02-2020 End: 12-02-2020 Patient encounter procedure Ajit Spasic -MRI [facility] Start: 11-05-2020 End: 11-05-2020 Departed Referred Ajit Spasic -[facility] Start: 10-22-2020 End: 10-22-2020 Patient encounter procedure Ajit Yanac -XRay [facility] Start: 09-23-2020 End: 09-23-2020 Patient encounter procedure Ajit Spasic -Lab [facility] Procedures Date Procedure Procedure Detail Performing Clinician Start: 07-06-2024 Plain chest X-ray ASBESTOS TEXTILE SUPERVISOR-C Ajit Spasic Work Phone: Start: 07-06-2024 Computed tomography of abdomen and pelvis with contrast ASBESTOS TEXTILE SUPERVISOR-C Ajit Spasic Work Phone: Start: 06-08-2024 MR lumbar spine wo con ASBESTOS TEXTILE SUPERVISOR-C Ajit Spasic Work Phone: Start: 03-16-2024 Screening colonoscopy N P-C Ajit Spasic Work Phone: Start: 03-02-2024 X-ray of lumbar spin e, four views ASBESTOS TEXTILE SUPERVISOR-C Ajit Spasic Work Phone: Start: 03-01-2024 Injection of local anesthetic into sacroiliac joint ASBESTOS TEXTILE SUPERVISOR-C Ajit Spasic Work Phone: Start: 02-09-2024 Ultrasonography of r ight breast ASBESTOS TEXTILE SUPERVISOR-C Ajit Spasic Work Phone: Start: 02-04-2024 Screening mammograph y of bilateral breasts ASBESTOS TEXTILE SUPERVISOR-C Ajit Spasic Work Phone: Start: 01-21-2024 Ultrasonography of bilateral kidneys ASBESTOS TEXTILE SUPERVISOR-C Ajit Spasic Work Phone: Start: 10-09-2023 Stool culture for bacteria ASBESTOS TEXTILE SUPERVISOR-C Ajit Lariossic Work Phone: Start: 10-08-2023 Computed tomography of abdomen and pelvis with contrast ASBESTOS TEXTILE SUPERVISOR-C Ajit Lariossic Work Phone: Start: 09-28-2023 Total hysterectomy v ia vaginal approach ASBESTOS TEXTILE SUPERVISOR-C Ajit Lariossic Work Phone: Start: 09-16-2023 Antibody screen Ajit corrales Comment on above: Order Comment: Date of Surgery: [id number] Result Comment: PERF ORMED BY: [facility] [address] [place] [address] PATHOLOGIST SHEEP SORTER RIDGE HUERTA M.D. Start: 07-13-2023 Hysteroscopy NA [employer] Work Phone: Start: 05-05-2023 Injection of local anesthetic into sacroiliac joint ASBESTOS TEXTILE SUPERVISOR-C Ajit Spasic Work Phone: Start: 05-04-2023 Urine culture NA [facility] Work Phone: Start: 04-26-2023 Radiography of thora cic spine ASBESTOS TEXTILE SUPERVISOR-C Ajit Lariossic Work Phone: Start: 04-14-2023 Epidural injection o f lumbar spine using fluoroscopic guidance ASBESTOS TEXTILE SUPERVISOR-C Ajit Spasic Work Phone: Start: 02-09-2023 Urine culture ASBESTOS TEXTILE SUPERVISOR-C Piero bee Spasic Work Phone: Start: 11-18-2022 Injection of spinal epidural space Services [facility] Work Phone: Start: 11-05-2022 Urine culture Services [facility] Work Phone: Start: 11-03-2022 X-ray of cervical spine Services [facility] Work Phone: Start: 08-24-2022 Cystourethroscopy wi dilation of urethral stricture Joshua SILVEIRA Start: 06-24-2022 MRI of head Services [facility] Work Phone: Start: 06-17-[address] [facility] [employer] Work Phone: Start: 06-17-[address] [facility] [employer] Work Phone: Start: 06-09-2022 US scan of bladder Serv ices [facility] [employer] Work Phone: Start: 05-01-2022 Computed tomography of abdomen and pelvis with contrast Services [facility] [employer] Work Phone: Start: 05-01-2022 X-ray of right knee Ser [facility] [employer] Work Phone: Start: 04-29-2022 X-ray of left ankle Ser [facility] [employer] Work Phone: Start: 12-24-2020 MRI of left [...] ba cteria, including anaerobic screen Services [facility] [employer] Work Phone: Blood culture for ba cteria, including anaerobic screen Services [facility] [employer] Work Phone: Cholecystectomy Joshua SILVEIRA H/O: hysterectomy S/P hysterectomy ASBESTOS TEXTILE SUPERVISOR-C L aura Spasic Work Phone: H/O: hysterectomy Status post hysterectomy ASBESTOS TEXTILE SUPERVISOR-C Ajit Spasic Work Phone: Urine culture Services [facility] Work Phone: Plan of Treatment Date Care Activity Detail Author Start: 07-24-2024 Ultrasonography of right breast US breast RT limited [facility] Start: 03-16-2024 [facility] Start: 03-01-2024 [facility] Start: 10-16-2023 Bacteria identified in Blood by Culture [facility] Start: 10-16-2023 [facility] Start: 10-09-2023 Stool culture Stool Culture [facility] Start: 10-09-2023 [facility] Start: 10-09-2023 Referral to anodizing line operator [facility] Start: 10-08-2023 Hospital admission [facility] Start: 10-08-2023 [facility] Start: 10-07-2023 Referral to clinical registered dental assistant [facility] Start: 09-28-2023 Hospital admission [facility] Start: 09-28-2023 [facility] Start: 07-13-2023 End: 07-13-2023 [facility] Start: 05-05-2023 [facility] Start: 05-04-2023 Bacteria identified in Urine by Culture Urine Culture [facility] Start: 05-04-2023 Urine culture Urine Culture [facility] Start: 04-14-2023 [facility] Start: 02-09-2023 Bacteria identified in Urine by Culture [facility] Start: 11-18-2022 [facility] Start: 11-05-2022 Bacteria identified in Urine by Culture [facility] Start: 06-02-2022 End: 06-02-2022 Departed Referred Departed Referred [facility] Start: 05-27-2022 Registered Recurring Iron deficiency [facility] Start: 05-27-2022 [facility] Start: 05-07-2022 End: 05-07-2022 Patient encounter procedure Departed Clinical [facility] [place] Start: 05-01-2022 Computed tomography of abdomen and pelvis with contrast CT abdomen pelvis w con [facility] Start: 05-01-2022 End: 05-01-2022 Emergency department patient visit Departed Emergency [facility]-Emergency Room Atopobium vaginae DN A [Presence] in Vaginal fluid by NAYELY with probe detection [facility] Bacterial vaginosis associated bacterium 2 DNA [Presence] in Vaginal fluid by NAYELY with probe detection [facility] Chlamydia trachomati s rRNA [Presence] in Cervix by NAYELY with probe detection [facility] Glucose measurement estimated from glycated hemoglobin [facility] Glucose measurement estimated from glycated hemoglobin [facility] Hemoglobin A1c/Hemoglobin.total in Blood [facility] Human papilloma viru s 16+18+31+33+35+39+45+51+52+ 56+58+59+66+68 DNA [Presence] in Cervix by Probe with signal amplification [facility] Human papilloma viru s 16+18+31+33+35+39+45+51+52+ 56+58+59+68 DNA [Presence] in Cervix by Probe with signal amplification [facility] Megasphaera sp type 1 DNA [Presence] in Vaginal fluid by NAYELY with probe detection [facility] Neisseria gonorrhoea e rRNA [Presence] in Cervix by NAYELY with probe detection [facility] Patient Education [facility] Work Phone: Patient referral [facility] Work Phone: XR Lumbar spine 4 Views [facility] Immunizations Immunization Date Immunization Notes Care Provider Jaret mitchell 09-19-2021 COVID-19 mRNA, Comirnaty (Pfizer) NA [employer] [facility] Work Phone: [facility] 08-29-2021 COVID-19 mRNA, Comirnaty (Pfizer) NA [employer] Work Phone: [facility] NEGATED: Highlighted row has not occurred!10-27-2019 influenza virus vaccine, live, attenuated, for intranasal use Joshua SILVEIRA [facility] Payers Date Payer Category Payer Unknown [id number] 2024 Unknown [id number] 2023 Self-pay [id number] 1979 Unknown [id number] 2.16.84 [id number] 1979 Unknown [id number] 2.16.84 0.1.933694.3.579.2.593 1979 Unknown [id number] 2.16.84 0.1.105235.3.579.2.593 1979 Unknown [id number] 2.16.84 0.1.013777.3.579.2.1259 1979 Unknown [id number] 2.16.8 40.1.974771.3.579.2.727 1979 Unknown [id number] 2.16.8 40.1.884697.3.579.2.727 1979 Unknown [id number] 2.16.8 40.1.579844.3.579.2.727 1959 Medicaid [id number] Unknown [id number] Unknown [id number] 2.16.8 40.1.068286.3.579.2.531 Unknown [id number] 2.16.8 40.1.052663.3.579.2.531 Unknown [id number] 2.16.8 40.1.286952.3.579.2.531 Unknown [id number] 2.16.8 40.1.460091.3.579.2.531 Unknown [id number] 2.16.8 40.1.103008.3.579.2.531 Unknown [id number] 2.16.8 40.1.721990.3.579.2.531 Unknown [id number] 2.16.8 40.1.887721.3.579.2.531 Unknown [id number] 2.16.8 40.1.702430.3.579.2.531 Unknown [id number] 2.16.8 40.1.675083.3.579.2.531 Unknown [id number] 2.16.8 40.1.721737.3.579.2.531 Unknown [id number] 2.16.8 40.1.687314.3.579.2.531 Unknown [id number] 2.16.8 40.1.283929.3.579.2.531 Unknown [id number] 2.16.8 40.1.290662.3.579.2.531 Unknown [id number] 2.16.8 40.1.600957.3.579.2.531 Unknown [id number] 2.16.8 40.1.135477.3.579.2.531 Unknown [id number] Unknown [id number] Unknown [id number] Social History Date Type Detail Facility Start: 09-25-2019 End: 07-24-2024 Tobacco smoking status NHIS Smoker (finding) [facility] Start: 1980 Sex Assigned At Female [facility] Sex Assigned At [facility] Start: 07-31-2022 Tobacco smoking status Heavy tobacco smoker (finding) [facility] Start: 03-01-2024 End: 03-16-2024 Tobacco smoking status NHIS Current some day smoker [facility] NEGATED: Highlighted row Fir [facility] Goals Date Patient Goal Desired Activity /State Functional Status Date Assessment Result Facility 07-09-2024 Functional Status N/A [facility] 10-09-2023 Functional status Patient at Baseline [facility] Work Phone: 11-02-2022 Functional Status N/A [facility] 08-24-2022 Functional Status N/A [facility] 07-31-2022 Functional Status N/A [facility] Mental Status Date Assessment Result Facility 10-09-2023 Cognitive function Cognitive Sta tus Patient at Baseline [facility] Work Phone: Clinical Notes 01-14-2022 to 07-09-2024 [...] that is high in altitude, where thinner, transfer car operator drier air causes more fluid loss. Doing [...] of fat or sugar. General instructions Take algy-clh-ckfkrip and prescription medicines only as told by [...] provider. Document Revised: 04/19/2023 Document Reviewed: 04/19/2023 [employer] Patient Education 2023 [employer]. 07/09/2024 14:17:29 Viral Illness, Adult Viral Illness, [...] Medicines to treat symptoms. These can include snho-pmp-curkvnq medicine for pain and fever, medicines for cough or congestion, and medicines for diarrhea. Antiviral medicines. These medicines are available only for certain types of viruses. Some viral illnesses can be prevented with vaccinations. A common example is the flu shot. Follow these instructions at home: Medicines Take itgc-qca-hhvibmc and prescription medicines only as told by [...] and water are not available, use hand design maker. Avoid touching your nose, eyes, and mouth, [...] provider. Document Revised: 10/06/2023 Document Reviewed: 07/21/2023 [employer] Patient Education 2023 [employer]. Follow Up Care 07/09/2024 12:40:30 With:AJIT PETTIT Address: [facility] [place] [address]- [facility] (1) When:07/12/2024 14:17:20 Comments:Call the office of [...] you develop any new or worsening symptoms. [facility] 07-09-2024 Note ED Patient Education Note [...] Medicines to treat symptoms. These can include rvzv-cee-zjolufg medicine for pain and fever, medicines for cough or congestion, and medicines for diarrhea. ? Antiviral medicines. These medicines are available only for certain types of viruses. Some viral illnesses can be prevented with vaccinations. A common example is the flu shot. Follow these instructions at home: Medicines ? Take resz-zmn-ufdifvs and prescription medicines only as told by [...] and water are not available, use hand design maker. ? Avoid touching your nose, eyes, and mouth, especial (more content not included)... [facility] 07-09-2024 Note ED Patient Education Note Infectious [...] Medicines to treat symptoms. These can include jbtj-dfe-xdtrlqp medicine for pain and fever, medicines for cough or congestion, and medicines for diarrhea. ? Antiviral medicines. These medicines are available only for certain types of viruses. Some viral illnesses can be prevented with vaccinations. A common example is the flu shot. Follow these instructions at home: Medicines ? Take euxf-pkd-onytgvt and prescription medicines only as told by [...] and water are not available, use hand design maker. ? Avoid touching your nose, eyes, and mouth, especial (more content not included)... [facility] 07-09-2024 Evaluation + Plan note Extrac cherie from: Title:ED Note Author:Ambrose Cedeño DO Date: Malaise (R53.81: Other malai se) Viral syndrome (B34.9: Viral infection, unspecified) Orders: Basic Metabolic Panel Beta hCG Qual CBC w/ Auto Diff ED Cardiac Monitoring eGFR Hepatic Function Panel Oxygen Saturation Oxygen Therapy PT & PTT Saline Lock Insert Troponin 0 Hr. Troponin 1 Hr. XR Chest Single View [facility] 06-13-2024 Procedure [facility]05-29-2024 Procedure [facility]01-06-2024 Discharge summary Author Salazar Cabrera [facility] October 09, 2023 6:42pm Note Date/Time October 09, 2023 1: 22pm [facility] [address] [place] [address] Discharge Summary Signed Patient: Rachel Mcgarry MR#: [id number] : 1980 Acct:[id number] Age/Sex: 43 / F Adm Date: 4 Loc: Room: [address] [place] [address]: Salazar Cabrera DO Copies to: OLEG Sharp APRN Shawn J Warner, DO~ Providers Date of Admission: 10/08/23 Date of Discharge: 10/09/23 Discharging Provider: Salazar Cabrera Additional Discharging Provider: Salazar Cabrera Primary Care Provider: Ajit Pettit Consults: 10/07/23 23:27 Consult to Adult Hospitalist Routine 10/08/23 07:21 Consult to mat gauger Routine 10/09/23 06:50 Consult to Obstetrics Routine [...] abdominal pain. CT abdomen pelvis done at [place] showed nonspecific hyperemia and thickening of the small bowel distally suggestive of enteritis but nonacute otherwise and no postoperative complications were noted. She was transferred to [facility] for evaluation by recent surgical team. She was noted to have elevated lactate and given IV hydration as well as Zosyn. Lactate resolved with hydration. She had [place] with bloating and pain increasing with liquid intake unchangedfrom previous and no surgical complications again noted. FLOOR ASSEMBLER services followed ongoing through hospital stay. She was also seen by psychiatry with increase insertraline due to reports of depression and suicidal thoughts, should follow-up with [facility] behavioral [facility] after discharge. Date of [...] % (Auto) 70.1, Lymph % (Auto) 16.5, Towner % (Auto) 9.5, Eos % (Auto) 3.5, Baso % (Auto) 0.4, Nucleat RBC Rel Count 0.1, Neut # (Auto) 9.6 H, Lymph # (Auto) 2.2, Towner # (Auto) 1.3 H, Eos # (Auto) [...] - (keep appointment as schedule) Ajit Pettit, ASBESTOS TEXTILE SUPERVISOR-C [Primary Care Provider] - (call to schedule follow up appointment post hospitalization) Documented By: Ilene Lopez APRN 03/27 1322 Signed By: <Electronically signed by CHRISTINA Lopez> 10/09/23 1627 <Electronically signed by Salazar Cabrera DO> 10/09/23 1842 [facility] Work Phone: 1(346) 998-940301-06-2024 Progress note Author -LINDA Velez [facility] October 09, 2023 8:22am Note Date/Time October 09, 2023 8: 22am [facility] [address] [place] [address] Progress Note Signed Patient: Rachel Mcgarry MR#: [id number] : 1980 Acct:[id number] Age/Sex: 43 / F Adm Date: 4 Loc: Room: [address] [place] [address] Type: ADM IN Attending Dr: Salazar Cabrera [...] % (Auto) 70.1, Lymph % (Auto) 16.5, Towner % (Auto) 9.5, Eos % (Auto) 3.5, Baso % (Auto) 0.4, Nucleat RBC Rel Count 0.1, Neut # (Auto) 9.6 H, Lymph # (Auto) 2.2, Towner # (Auto) 1.3 H, Eos # (Auto) 0.5 H, Baso # (Auto) 0.1 10/08/23 22:27: POC Glucose 194 10/08/23 18:21: POC Glucose 265, POC Glucose Comment Glu2: cleaned meter 10/08/23 13:07: POC Glucose 166, POC Glucose Comment Glu2: cleaned meter 10/08/23 10:31: Lactic Acid 1.9 10/08/23 08:20: Urine Color [place] A, Urine Appearance Turbid A, Urine pH 5.5, Ur Specific [place] > 1.050 H, Urine Protein 30 H, [...] <Electronically signed by BONG Velez> 10/09/23 0822 [facility] Work Phone: 1(954) 672-203201-05-2024 Consult note Author Teo crandall [facility] October 08, 2023 4:59pm Note Date/Time October 08, 2023 11 :30am [facility] [address] [place] [address] Psychiatry Consult Note Signed with Addenda Patient: Rachel Mcgarry MR#: [id number] : 1980 Acct:[id number] Age/Sex: 43 / F Adm Date: 4 Loc: Room: [address] [place] [address] Type : ADM IN Attending Dr: Rosanna Grullon MD Copies to: MD Rosanna Rangel MD Laura E Spasic, ASBESTOS TEXTILE SUPERVISOR-C~ ADDENDUM1 No need for 15 min face check as patient contracts for safety. Addendum Documented By: Teo Taylor MD 10/08/231658 Addendum Signed By: <Electronically signed by Teo Taylor MD> 10/08/23 165 HPI Consult Date: 10/08/23 Requesting Physician: BONG Motley Primary Care Provider: Ajit E Spasic, ASBESTOS TEXTILE SUPERVISOR-C Consult Narrative HPI: Ms. Mcgarry is a [...] negative unless noted below or in HPI [facility] Medical History (Updated 10/08/23 @ 11:22 by [...] Color Urine Appearance Urine pH Ur Specific [place] Urine Protein Urine Glucose (UA) Urine Ketones Urine Occult Blood Urine Nitrite Ur Leukocyte Esterase Urine RBC Urine WBC 10/08/23 08:20 RBC Hgb Hct MCV MCH MCHC RDW Plt Count MPV Sodium Potassium Chloride Carbon Dioxide Anion Gap BUN Creatinine Calcium Total Bilirubin AST ALT Alkaline Phosphatase Total Protein Albumin Urine Color [place] A Urine Appearance Turbid A Urine pH 5.5 Ur Specific [place] > 1.050 H Urine Protein 30 H [...] <Electronically signed by Teo Taylor MD> 10/08/23 6292 [facility] Work Phone: 1(724) 424-186901-05-2024 Progress note Author Salazar Cabrera [facility] October 08, 2023 4:41pm Note Date/Time October 08, 2023 11 :44am [facility] [address] [place] [address] Hospitalist Progress Note Signed Patient: Rachel Mcgarry MR#: [id number] : 1980 Acct:[id number] Age/Sex: 43 / F Adm Date: 4 Loc: Room: [address] [place] [address] Type: ADM IN Attending Dr: Rosanna Grullon [...] Ringers IV 10/06/24 22:59 150 mls/hr .Q6H40M [facility] Infusion Piperacillin Sod/Tazobactam Sod 3.375 gm in 100 mls @ 200 mls/hr 10/08/23 03:30 10/08/23 08:46 Zosyn IV 200 mls/hr Q6H [facility] Administration Ibuprofen 600 mg 10/08/23 02:00 10/08/23 03:32 Ibuprofen 600 Mg Tablet PO 10/07/24 01:59 Not Given Q6H [facility] Insulin Aspart 0 units 10/08/23 06:00 10/08/23 06:27 Insulin Aspart 300 Units/3 Ml Insuln.Pen SUBCUT 10/07/24 05:59 1 units Q6HR [facility] Administration Protocol Ondansetron HCl 4 mg 10/07/23 [...] Lactic acidosis chronic leukocytosis -CT abdomen pelvis?from [place] showed nonspecific hyperemia and thickening of small bowel distally suggestive of enteritis, nonacute otherwise, no postsurgical complications noted -Repeat CT abdomen pelvis?increasing bibasilar atelectasis, fatty liver, no bowel or urinary tract obstruction, no pelvic hematoma or significant free fluid, otherwise unchanged CT abdomen pelvis -Initial lactate 3.0--> 2.6--> 2.0--> 1.9 -Continue Zosyn, IVF. Afebrile. Scheduled dicyclomine. Symptom management -Advance diet to full liquid -FLOOR ASSEMBLER following Depression -Seen by psychiatry with increase [...] Salazar Cabrera DO> 10/08/23 1641 [facility] Work Phone: 1(445) 840-224901-05-2024 History and physical note Author -LINDA Velez [facility] October 08, 2023 1:07pm Note Date/Time October 08, 2023 7: 21am [facility] [address] [place] [address] HARNESS MENDER History & Physical Signed with Piotr Patient: Rachel Mcgarry MR#: [id number] : 1980 Acct:[id number] Age/Sex: 43 / F Adm Date: 4 Loc: 3S Room: [address] [place] [address] Type: ADM IN Attending Dr: Beltran Velez MD Copies to: Ajit Pettit, BONG Galdamez~ ADDENDUM1 1300:Repeat CT scan abdomen /pelvis today without obstruction,pelvic abcess or hematoma Lactic acid,WBC and urine output have all improved. She is tolerating po without nausea/emesis -but some abdominal distension, without rebound. Psychiatrist has increased her SSRI and will follow up as out pt. Hospitalist feels that she has enteritis. She is cleared from the FLOOR ASSEMBLER post op standpoint and we are signing off. Pt will be transferred to a medical floor for continued management. Addendum Documented By: BONG Velez 10/08/23 1307 Addendum Signed By: <Electronically signed by BONG Velez> 10/08/23 1307 Date of Service: 10/08/2023 FLOOR ASSEMBLER - HPI History of Present Illness Chief Complaint: Abdominal pain with emesis Planned Procedure: S/P TLH 09/28/2023 HPI: Rachel presented to [place] yesterday with abdominal pain/distension and emesis.Her lactic acid was 3.0,WBS 20k in ER,Sodium [address] scan compatible with enteritis. She was transferred to [facility] for observation and treatment. Pt with Chronic leukocytosis as followed by hematology for 2 years Review of Systems Review of Systems All other systems reviewed & are negative unless noted below or in HPI [facility] Medical History (Updated 10/08/23 @ 11:22 by [...] 1,000 mls @ 150 mls/hr IV .Q6H40M [facility] Stop: 10/06/24 22:59 Last Admin: 10/08/23 01:10 Dose: 125 mls/hr Piperacillin Sod/Tazobactam Sod (Zosyn) 3.375 gm in 100 mls @ 200 mls/hr IV Q6HS Last Admin: 10/08/23 03:45 Dose: 200 mls/hr Ibuprofen (Ibuprofen 600 Mg Tablet) 600 mg PO Q6H [facility] Stop: 10/07/24 01:59 Last Admin: 10/08/23 03:32 Dose: Not Given Insulin Aspart (Insulin Aspart 300 Units/3 Ml Insuln.Pen) 0 units SUBCUT Q6HR [facility]; Protocol Stop: 10/07/24 05:59 Last Admin: 10/08/23 06:27 Dose: 1 units Ondansetron HCl (Ondansetron 4 Mg/2 Ml Vial) 4 mg IV-PUSH Q8H PRN PRN Reason: Nausea And Vomiting Stop: 10/06/24 22:53 Ondansetron HCl (Ondansetron Odt 4 Mg Tab.Rapdis) 4 mg PO Q8HR PRN PRN Reason: Nausea And Vomiting Stop: 10/06/24 22:53 FLOOR ASSEMBLER - Exam Physical Exam Vital signs: Temp [...] Present normal affect, suicidal ideation and depressed FLOOR ASSEMBLER - Results Laboratory Results - Last 48 [...] Albumin 3.7, Globulin 2.4, Albumin/Globulin Ratio 1.5 FLOOR ASSEMBLER - A/P (1) Abdominal pain: Plan: Post [...] By: <Electronically signed by BONG Velez> 10/08/23 1258 [facility] Work Phone: 1(244) 801-630801-05-2024 Consult note Author Rosanna Grullon [facility] October 08, 2023 7:00am Note Date/Time October 08, 2023 1: 06am [facility] [address] [place], [place] [id number] Hospitalist Consult Note Signed Patient: Rachel Mcgarry MR#: [id number] : 1980 Acct:[id number] Age/Sex: 43 / F Adm Date: 4 Loc: Room: [address] [place] [address] Type: ADM IN Attending Dr: Beltran Velez MD Copies to: MD Ajit Davis, MEREDITH-C Namrata Munoz, CHRISTINA Velez MD-NOMS~ HPI DATE OF CONSULTATION: 10/08/23 REQUESTING PROVIDER: Beltran Velez Consult Narrative Reason for Consult: elevated lactic acid, T2DM, leukocytosis HPI: Ms. Mcgarry is a 43-year-old female with a PMH of T2DM, seizure disorder, recent hysterectomy that was transferred here to [facility] to obstetrics for abdominal pain. Hospitalist team has been consulted for management of T2DM, elevated lactic acid and leukocytosis. Patient arrived to the [facility] emergency room via EMS for [...] September 28. She been seen in the [facility] emergency room for vaginal infection [...] unless noted in the HPI or below. [facility] Medical History (Updated 10/08/23 @ 01:40 by [...] to CT dyereceived at the [facility] Documented By: Namrata Munoz APRN 10/08/23 0106 Signed By: <Electronically signed by CHRISTINA Munoz> 10/08/23 0153 <Electronically signed by Rosanna Grullon MD> 10/08/23 0700 [facility] Work Phone: 1(213) 690-930208-02-2023 [facility] Evaluation note* Encounter Date Diagnosis [...] activities and movements while managing her pain. [employer] Other 01-31-2023 Evaluation note* Encounter Date Diagnosis [...] cervical spine to further evaluate her pain. [employer] Other 01-30-2023 Hospital Discharge instructions Patient Education [...] to keep your urine pale yellow. ?Take hhvd-zdo-ftzhwfa or prescription medicines. ?Eat foods that are high in fiber, such as beans, whole grains, and fresh fruits and vegetables. ?Limit foods that are high in fat and processed sugars, such as fried or sweet foods. General instructions Take iyhv-ydg-jgkpynm and prescription medicines only as told by [...] the muscles that help control urination. Take tudt-vpq-sgpoyhv and prescription medicines only as told by your health care provider. Contact a health care provider if your symptoms do not improve or get worse. This information is not intended to replace advice given to you by your health care provider. Make sure you discuss any questions you have with your health care provider. Document Released: 07/17/2010 Document Revised: 03/30/2019 Document Reviewed: 03/30/2019 [employer] Patient Education 2020 [employer]. Follow Up Care 10/22/2022 11:17:07 With:Joshua SILVEIRA MD, URL Address: [address] [place] [phone]- Honey (1) When: Unknown [facility] [phone] Hospital Discharge instructions Patient Education 08/24/2022 15:50:28 [...] Care 07/31/2022 12:32:41 With:Joshua SILVEIRA Address: [address] [place] [address] Honey (1) When:6 weeks Comments:Call for followup appointment. Monitor the urinary low after the dilation today. Have a great Thanksgiving. [facility]10-28-2022 Hospital Discharge instructions Patient Education 07/31/2022 [...] including vitamins, herbs, eye drops, creams, and veob-biz-rihoegn medicines. ?Whether you are or may be [...] 07/17/2008 Document Revised: 01/09/2020 Document Reviewed: 07/25/2018 [employer] Patient Education 2020 [employer] Follow Up Care 07/24/2022 16:53:57 With:JORDANA BALDERAS, Joshua Dempsey, URL Address: [address] [place], [place] [id number]- When: Unknown Comments:Cysto/ Urodynamics [facility] [place] [phone] Evaluation note* Encounter Date Diagnosis Assessment Notes [...] and GT bursa injection in the future. [employer] Other 04-27-2022 Evaluation note* Encounter Date Diagnosis [...] progress notes from her referring physician at [facility]. I also independently reviewed previous MRI of [...] - M79.7) Continue with medication management through [facility]. I will also refer her to physical [...] negative findings were considered in medical decision-making. [employer] Other 04-13-2022 Evaluation note* Encounter Date Diagnosis Assessment Notes Treatment Notes Treatment Clinical Notes Jan, Neck pain (ICD-10 - M54.2) I really do not see any surgical intervention that would be warranted in either her cervical or lumbar spine. I think continue conservative therapy is warranted. 13 Apr, 2022 Low back pain at multiple sites (ICD-10 - M54.50) 13 Jan, 2022 Fibromyalgia (ICD-10 - M79.7) [employer] Other conszjj note Author Jasmin Velázquez [facility] May 27, 2022 11:47am Note Date/Time May 27, 2022 11 :30am [facility] [place] [address] Hem/Onc Consult Note - OP Signed Patient: Rachel Mcgarry MR#: [id number] : 1980 Acct:[id number] Age/Sex: 42 / F Type: REG RCR Copies to: [facility]~ HPI Date/Time of Service: Date of Service: 05/27/2022 Time of Service: 11:29 Referring Provider/PCP: Referring Provider: PCP: [facility] - History of Present Illness Reason for Consultation: Leukocytosis Chief Complaint: Patient is here for a referral from Ajit Pettit for leukocytosis. [facility] labs. Patient states that she has been [...] the process of being referred to a senior energy trader. Patient smokes averaging half pack to 1 [...] cancer. Patient is being referred to a senior energy trader. We instructed her to call back if there is any concern for further definitive guidance and recommendations - Time with Patient Coordination of Care & Counseling Time: Greater than 50% of time spent with patient was for coordination of care (as documented) and ecyg-fw-fqmh counseling of patient and/or family. Dictated By: Jasmin Velázquez MD DD/ 1129 Signed By: <Electronically signed by Jasmin Velázquez MD> 05/27/22 1147 [facility] Work Phone: Evaluation + Plan note Future Appointments Appointment Date:08/18/2022 08:00:00 AM Scheduled Provider: Location:[facility] Appointment Type:Urology CALL PAT FT Appointment Date:08/24/2022 02:00:00 PM Scheduled Provider: Location:[facility] Appointment Type:Urology FT Appointment Date:08/24/2022 03:00:00 PM Scheduled Provider: Location:[facility] Appointment Type:Urology FT [facility] Evaluation + Plan note Future Appointments Appointment Date:09/29/2022 10:15:00 AM Scheduled Provider:Joshua SILVEIRA MD Location:[facility] App[facility]ments Appointment Date:12/29/2022 10:45:00 AM Scheduled Provider:Joshua SILVEIRA MD [facility] Appoint[facility] Type:URO Office Visit [facility] evaluggjgq noteNo Assessments Information Available [facility] InformationNort [employer] Other evalusavuu note* Diagnosis Onset Date Resolution Status Iron deficiency acute Leucocytosis acute Right ovarian cyst acute [facility] Work Phone: Evaluation noteNo assessment information available [facility] Work Phone: evaluation note* Diagnosis Onset Date Resolution Status Abdominal pain acute Enteritis acute History of depression acute History of leukocytosis acut e IBS (irritable bowel syndrome) acute Leucocytosis acute Metabolic acidosis acute S/P hysterectomy acute T2DM (type 2 diabetes mellitus) acute [facility] Work Phone: evaluation note* Diagnosis Onset Date Resolution Status Chronic pain acute Lumbosacral spondylosis acut e Sacroiliitis acute [facility] Work Phone: Evaluation note* Diagnosis Onset Date Resolution Status Chronic pain acute Lumbosacral spondylosis acut e Sacroiliitis acute Chronic pain acute Lumbar radiculopathy acute Lumbosacral spondylosis acut e Sacroiliitis acute [facility] Work Phone: evaluation note* Diagnosis Onset Date Resolution Status Chronic pain acute Lumbosacral spondylosis acut e Sacroiliitis acute Chronic pain acute Lumbar radiculopathy acute Lumbosacral spondylosis acut e Sacroiliitis acute Chronic pain acute Lumbar radiculopathy acute Lumbosacral spondylosis acut e Sacroiliitis acute [facility] Work Phone: Evaluation note* Diagnosis Onset Date Resolution Status Chronic pain acute Lumbar radiculopathy acute Lumbosacral spondylosis acut e Sacroiliitis acute [facility] Work Phone: History and physical note Author Abi Sunshine [facility] March 16, 2024 8:19am Note Date/Time March 16, 2024 8:20 am [facility] [address] [place] [address] Gastroenterology H&P Signed Patient: Rachel Mcgarry MR#: [id number] : 1980 Acct:[id number] Age/Sex: 44 / F Adm Date: 4 Loc: Room: Type: [facility] Attending Dr: Abi Sunshine DO Copies [...] <Electronically signed by Abi Sunshine DO> 03/16/24818 [facility] Work Phone: History general Narrative - [...] infection, bowel i nfection and flu 2011 [employer] Other History general Narrative - Reported* Type [...] infection, bowel i nfection and flu 2011 [facility] Other Hospital course Narrative No data available for this section [facility] Hospital Discharge instructions No data available for this section [facility] Hospital Discharge instructions Additional Instructions DISCHARGE [...] in an emergency, call the office at [[phone]]. TODAY -Take it easy the rest of [...] FOLLOW UP -Please call the office at [phone] to arrange an appointment to see me in 2 weeks [ ][facility] Work Phone: Hospital Discharge instructions Additional Instructions Follow any previous post-op orders.[facility] Work Phone: Progress note No data available for this section [facility] Reason for visit NarrativeReferral Ajit Pettit NP [facility]bar [employer] Other Summary Purpose Family History No Family [...] marilynn mother Malignant neoplasm of ovary Unknown Heart disease Unknown Hypothyroidism Unknown Myocardial infarction Unknown Malignant neoplasm of uterus Unknown Neuropathy Unknown History of coronary artery stent placement Unknown sister Malignant neoplasm of cervix Unknown Malignant neoplasm of ovary Unknown Hyperthyroidism Unknown father Unknown Advance Directives No Advanced [...] Lumbar radiculopathy Lumbosacral spondylosis Sacroiliitis Chief Complaint E55.9 E11.9 M54.16 M51.06 M41.9 R52 E78.00 sent by doc N60.01 R92.8 Assessments No Assessments Information AvailableNo Assessments Information AvailableNo Assessments Information AvailableNo Assessments Information AvailableNo Assessments Information AvailableNo Assessments Information Available Additional Source Comments INFORMATION SOURCE (unrecogn ized section and content) DATE CREATED AUTHOR 07/25/2019 [facility] DATE CREATED AUTHOR AUTHOR'S ORGANIZ ATION [facility]2023 [facility] DATE CREATED AUTHOR AUTHOR'S ORGANIZ ATION 10/21/2023 [facility] EPIC DATE CREATED AUTHOR AUTHOR'S ORGANIZ ATION 07/10/2024 [facility] DATE CREATED AUTHOR AUTHOR'S ORGANIZ ATION 07/14/2024 [facility] DATE CREATED AUTHOR AUTHOR'S ORGANIZ ATION 09/15/2024 [facility] REASON FOR VISIT (unrecogniz ed section and content) LEFT L3,4 TRANSFORAMINAL EPIDURAL STEROID INJ/ELREF BY [facility] FOR LUMBAR DISC HERNIATIONFOLLOW UP AFTER LEFT LTRBILATERAL SACROILIAC JOINT INJECTIONINCREASE BACK PAIN RADIATING LLELEFT L3 AND L4 TRANSFORAMINAL EPIDURAL STEROID INJECTIONF/U INCREASE IN LOW BACK PAIN AND LEFT LE WEAKNESS-LOST TO FOLLOW UP LAST TIMEL4- 5 EPIDURAL STEROID INJ/ELRIGHT SACROILIAC JOINT INJ/EL Care Teams (unrecognized sec tion and content) Team Status: Inactive Member Role Status Dates Services [facility] Primary Care Provider Active Ajit Pettit , [employer] TEXTILE SUPERVISOR-C Attending Provider Active Team Status: Active Member Role Status Lorie Velázquez MD Attending Provider Active Services [facility] Primary Care Provider Active Team Status: Inactive Member Role Status Dates Services [facility] Primary Care Provider Ac raya Alvarado DO Emergency Provider Active Team Status: Inactive Member Role Status Dates Services [facility] Primary Care Provider Ac antonetteve Ajit Pettit , [employer] TEXTILE SUPERVISOR-C Attending Provider Active Team Status: Inactive Member Role Status Dates Services [facility] Primary Care Provider Ac raya Bergeron APRN Emergency Provider Active Team Status: Active Member Role Status [facility] Primary Care Provider Ac tive Team Status: Inactive Member Role Status Dates Ajit Pettit , [employer] TEXTILE SUPERVISOR-C Attending Provider Active Services [facility] Primary Care Provider Ac tive Team Status: Inactive Member Role Status Dates Services [facility] Primary Care Provider Ac raya Miramontes MD Attending Provider Active Team Status: Inactive Member Role Status Lorie Pettit , [employer] TEXTILE SUPERVISOR-C Attending Provider Active Team Status: Active Member Role Status Dates . [facility] Primary Care Provider Active Team Status: Inactive Member Role Status Lorie Miramontes MD Attending Provider Active . [facility] Primary Care Provider Active Team Status: Inactive Member Role Status Lorie Pettit , [employer] TEXTILE SUPERVISOR-C Attending Provider Active NON STAFF Primary Care Provider Active Team Status: Active Member Role Status Lorie Pettit , [employer] TEXTILE SUPERVISOR-C Primary Care Provider Active Team Status: Inactive Member Role Status Lorie Pettit , [employer] TEXTILE SUPERVISOR-C Primary Care Provider, Attending Provider Active Team Status: Inactive Member Role Status Lorie Miramontes MD Attending Provider Active Ajit Pettit , [employer] TEXTILE SUPERVISOR-C Primary Care Provider Active Team Status: Inactive Member Role Status Lorie Pettit , [employer] TEXTILE SUPERVISOR-C Primary Care Provider Active Kyler Miramontes MD Attending Provider Active Team Status: Inactive Member Role Status Lorie Pettit , [employer] TEXTILE SUPERVISOR-C Primary Care Provider Active Carri Manuel DO Attending Provider Active Team Status: Inactive Member Role Status Lorie Velez MD Admit Provider Active Pastora Calderon RN Other Provider Active Sarina Gearheart , RN Other Provider Active Bernie Brar , RN Other Provider Active Karuna Flor , RN Other Provider Active Lakshmi Manzano , RN Other Provider Active Tracy Sun , JULIANA Other Provider Active Silvia Galeas , GEM TECHNICIAN Other Provider Active Evan Jackson , DO Other Provider Active Familia Blair MD Other Provider Active Brandon Dowling , DO Other Provider Active Florin Cruz MD Other Provider Active Vivi Holloway MD Other Provider Active Ilene Lopze , GEM TECHNICIAN Other Provider Active Lilly Alexandre MD Other Provider Active Rangel Tyler MD Other Provider Active Aidan Cardenas MD Other Provider Active Holden De La Cruz MD Other Provider Active Leodan Catalan , DO Other Provider Active Palma Bright MD Other Provider Active Gabriele Vasquez MD Other Provider Active Karina Colvin , [employer] TEXTILE SUPERVISOR-C Other Provider Active Gaurav Peraza MD Other Provider Active Mike Guzman MD Other Provider Active Antonio Teague MD Other Provider Active Jorge Galdamez MD Other Provider Active Kourtney Longoria , DO Other Provider Active Bola Sullivan , DO Other Provider Active Lazaro Dunne , DO Other Provider Active Elvira Nava , GEM TECHNICIAN Other Provider Active Salazar Cabrera , DO Attending Provider, Other Provider Active Naila Lema MD Other Provider Active Namrata Munoz , GEM TECHNICIAN Other Provider Active Carole Lundy , GEM TECHNICIAN Other Provider Active Rosanna Grullon MD Other Provider Active Girish Tolentino MD Other Provider Active Beryl Holguin , GEM TECHNICIAN Other Provider Active Mabel Lackey , DO Other Provider Active Talita Noel , JULIANA Other Provider Active Teo Taylor MD Other Provider Active Ajit Pettit [employer] TEXTILE SUPERVISOR-C Primary Care Provider Active Team Status: Inactive Member Role Status Dates Ajit Pettit [employer]ILE SUPERVISOR-C Primary Care Provider Active Diego Noble DO Emergency Provider Active Team Status: Inactive Member Role Status Dates Ajit Pettit [employer] TEXTILE SUPERVISOR-C Attending Provider Active Start: January 18, 2024 End: January 18, 2024 Team Status: Inactive Member Role Status Dates Ajit E Spasic , [employer] TEXTILE SUPERVISOR-C Primary Care Provi tirso, Attending Provider Active Start: January 21, 2024 End: January 21, 2024 Team Status: Inactive Member Role Status Dates Ajit Pettit , [employer] TEXTILE SUPERVISOR-C Primary Care Provi tirso, Attending Provider Active Start: February 04, 2024 End: February 04, 2024 Team Status: Inactive Member Role Status Dates Ajit Pettit , [employer] TEXTILE SUPERVISOR-C Primary Care Provi tirso, Attending Provider Active Start: February 09, 2024 End: February 09, 2024 Team Status: Inactive Member Role Status Dates Ajit Cat Pettit , [employer] TEXTILE SUPERVISOR-C Primary Care Provider Active Start: February 21, 2024 End: February 21, 2024 Kyler Miramontes MD Attending Provider Active Sta rt: February 21, 2024 End: February 21, 2024 Team Status: Inactive Member Role Status Dates Ajit Pettit , [employer] TEXTILE SUPERVISOR-C Primary Care Provider Active Start: March 01, 2024 End: March 01, 2024 Kyler Miramontes MD Attending Provider Active Sta rt: March 01, 2024 End: March 01, 2024 Team Status: Active Member Role Status Dates Ajit Pettit , ASBE[employer] TEXTILE SUPERVISOR-C Primary Care Provider Active Start: March 01, 2024 Kyler Miramontes MD Attending Provider, Other Provider Active Start: March 01, 2024 Team Status: Inactive Member Role Status Dates Ajit Pettit , [employer] TEXTILE SUPERVISOR-C Primary Care Provider Active Start: March 02, 2024 End: March 02, 2024 Kyler Miramontes MD Attending Provider Active Sta rt: March 02, 2024 End: March 02, 2024 Team Status: Inactive Member Role Status Dates Ajit Pettit , [employer] TEXTILE SUPERVISOR-C Primary Care Provider Active Start: March 08, 2024 End: March 08, 2024 Kyler Miramontes MD Attending Provider Active Sta rt: March 08, 2024 End: March 08, 2024 Team Status: Inactive Member Role Status Dates Ajit Pettit , [employer]BE[employer] TEXTILE SUPERVISOR-C Primary Care Provider Active Start: March 16, 2024 End: March 16, 2024 Abi Sunshine DO Attending Provider Active St art: March 16, 2024 End: March 16, 2024 Team Status: Active Member Role Status Dates Ajit Pettit , [employer] TEXTILE SUPERVISOR-C Primary Care Provider Active Start: March 16, 2024 Abi Sunshine DO Attending Provider, Other Provider Active Start: March 16, 2024 Team Status: Inactive Member Role Status Dates Ajit Pettit NP-C Primary Care Provider Active Start: April 11, 2024 End: April 11, 2024 Alicia Villalobos NP Attending Provider Active Start: April 11, 2024 End: April 11, 2024 Team Status: Inactive Member Role Status Dates Ajit Pettit NP-C Attending Provider Active Start: May 16, 2024 End: May 16, 2024 Team Status: Inactive Member Role Status Dates Ajit Pettit , [employer] TEXTILE SUPERVISOR-C Primary Care Provi tirso, Attending Provider Active Start: June 08, 2024 End: June 08, 2024 Team Status: Inactive Member Role Status Dates Ajit Pettit , [employer] TEXTILE SUPERVISOR-C Primary Care Provi tirso, Attending Provider Active Start: July 04, 2024 End: July 04, 2024 Team Status: Inactive Member Role Status Dates Ajit Pettit NP-C Primary Care Provider Active Start: July 06, 2024 End: July 06, 2024 Jono Ferrari PA-C Emergency Provider Active Start: July 06, 2024 End: July 06, 2024 Team Status: Inactive Member Role Status Dates Ajit Pettit NP-C Primary Care Provi tirso, Attending Provider Active Start: July 24, 2024 End: July 24, 2024 Goals (unrecognized section and content) Goals [...] BE BASED ON THE PRIMARY CLINICAL RECORDS. [employer] provides no warranty or guarantee of the accuracy or completeness of information in this document.
--- NOTE | 2024-10-22 03:45 | ED.GENADUL1 ---
HPI HPI - General Adult General Chief complaint: Seizure Stated complaint: FLU LIKE SYMPTOMS/ SEIZURE LIKE ACTIVITY Time Seen by Provider: 10/22/24 03:41 Source: patient Mode of arrival: Wheelchair Limitations: no limitations History of Present Illness HPI narrative: pt had multiple seizures tonight. She has epilepsy and takes Depakote daily. She had nausea and vomiting for the last few days and has been taking zofran and able to tolerate oral liquids but not solids. This morning she had a seizure around 3am but was not post-ictal. A few minutes later she had another seizure - generalized shaking. She did not take anything at home as she is not currently prescribed anything for breakthrough seizures. No fever, chills, chest pain, shortness of breath. Denies urinary symptoms. Denies chance of . Related Data Home Medications ?Medication ?Instructions ?Recorded ?Confirmed cariprazine 1.5 mg capsule 1.5 mg PO DAILY 04/20/23 07/15/24 (Vraylar) diazepam 5 mg tablet 5 mg PO DAILY 04/20/23 07/15/24 divalproex 250 mg tablet,delayed 250 mg PO DAILY 04/20/23 04/03/24 release divalproex 500 mg tablet,extended 500 mg PO DAILY 04/20/23 07/15/24 release 24 hr doxazosin 2 mg tablet 2 mg PO DAILY 04/20/23 07/15/24 dulaglutide 0.75 mg/0.5 mL 0.75 mg subcut DAILY 04/20/23 04/03/24 subcutaneous pen injector (Trulicity) dulaglutide 1.5 mg/0.5 mL 1.5 mg subcut DAILY 04/20/23 04/03/24 subcutaneous pen injector (Trulicity) ergocalciferol (vitamin D2) 1,250 1,250 mcg PO DAILY 04/20/23 07/15/24 mcg (50,000 unit) capsule ferrous sulfate 325 mg (65 mg 325 mg PO DAILY 04/20/23 07/15/24 iron) tablet (FeroSul) gabapentin 800 mg tablet 800 mg PO DAILY 04/20/23 07/15/24 metformin 500 mg tablet,extended 500 mg PO DAILY 04/20/23 04/03/24 release 24 hr tizanidine 4 mg capsule 8 mg PO BID PRN muscle spasticity 04/20/23 04/03/24 dulaglutide 3 mg/0.5 mL 3 mg subcut .weekly 03/26/24 07/15/24 [facility] ketorolac 10 mg tablet 10 mg PO Q6H PRN pain 03/26/24 07/15/24 meloxicam 15 mg tablet 15 mg PO DAILY 03/26/24 07/15/24 multivitamin-ferrous 1 tab PO Q24H 03/26/24 04/03/24 fumarate-folic acid 18 mg-400 mcg tablet (Spectravite Women) ondansetron HCl 4 mg tablet 4 mg PO PRN nausea and vomiting 03/26/24 sertraline 100 mg tablet 100 mg PO Q24H 03/26/24 04/03/24 simvastatin 20 mg tablet 20 mg PO DAILY 03/26/24 07/15/24 tizanidine 4 mg tablet 4 mg PO Q8H PRN muscle spasticity 03/26/24 07/15/24 Previous Rx's ?Medication ?Instructions ?Recorded lhubccssbk-sucefqftyxgnv-eghupenf 1 cap PO Q6H PRN pain 5 days #20 04/03/24 50 mg-300 mg-40 mg capsule caps (Fioricet) Allergies Allergy/AdvReac Type Severity Reaction Status Date / Time metoclopramide (From Reglan) Allergy Intermediate shaking Verified 07/15/24 23:03 amitriptyline Allergy dizzy Verified 07/15/24 23:03 latex Allergy hives Verified 07/15/24 23:03 sulfamethoxazole (From Allergy Hives Verified 07/15/24 23:03 Bactrim) tramadol (From Ultram) Allergy seizures Verified 07/15/24 23:03 trimethoprim (From Bactrim) Allergy Hives Verified 07/15/24 23:03 Opioid HPI Opioid Management Most Recent Opioid Data: Last Pain Scale 5 04/03/24 11:16 04/03/24 PFSH PFSH Social History Smoking status: Current every day smoker Little interest or pleasure in doing things: not at all Feeling down, depressed, or hopeless: not at all Exam Narrative Exam Narrative: Nurses notes and vital signs reviewed and patient is not hypoxic. afebrile General: Well-appearing and in no apparent distress. Skin: Warm, dry, no pallor noted. Head: Normocephalic, atraumatic. Neck: Supple, non-tender. No meningismus Eye: Pupils are equal, round and EOMI. No scleral icterus. Ears, Nose, Mouth, and Throat: No facial injury noted. Oral mucosa is dry Cardiovascular: Regular Rate and Rhythm without murmur, gallop or rub. Respiratory: No accessory muscle use or respiratory distress. Lungs are clear to auscultation, no wheezing, rales or rhonchi Back: No midline thoracic or lumbar vertebral tenderness. No CVA tenderness Musculoskeletal: normal ROM, no calf or popliteal tenderness, no lower extremity edema/swelling GI: Abdomen is soft, non-distended. Normal bowel sounds. No tenderness to palpation. No rebound, guarding, or rigidity noted. Neurological: A&O x4. No cranial nerve dysfunction observed. No truncal ataxia. Moves all extremities. Sensation intact. Psychiatric: Cooperative and interactive. Normal mood and affect. Constitutional Vital Signs, click to edit/add: Last Vital Signs Temp 98.1 F 10/22/24 03:36 Pulse 85 10/22/24 03:36 Resp 16 10/22/24 03:36 BP 109/85 10/22/24 03:36 Pulse Ox 98 10/22/24 03:36 O2 Del Method Room Air 10/22/24 03:36 Course Vital Signs Vital signs: Vital Signs Temperature 98.1 F 10/22/24 03:36 Pulse Rate 85 10/22/24 03:36 Respiratory Rate 16 10/22/24 03:36 Blood Pressure 109/85 10/22/24 03:36 Pulse Oximetry 98 10/22/24 03:36 Oxygen Delivery Method Room Air 10/22/24 03:36 Temperature 98.1 F 10/22/24 03:36 Pulse Rate 85 10/22/24 03:36 Respiratory Rate 16 10/22/24 03:36 Blood Pressure 109/85 10/22/24 03:36 Pulse Oximetry 98 10/22/24 03:36 Oxygen Delivery Method Room Air 10/22/24 03:36 Medical Decision Making MDM Narrative Medical decision making narrative: Patient was placed on radiographer cardiac catheterization and EKG obtained. Blood drawn and sent for evaluation. Urine was also ordered to be sent for testing if she is able to urinate. The patient was given a liter of normal saline IV fluid, IV Ativan to prevent additional seizure activity, and IV Zofran for nausea. White blood cell count elevated at 14.6. No left shift noted. Unremarkable CMP. Negative lipase. Depakote level is a send out and is currently pending. Patient improved after ED treatment. We discussed her leukocytosis, which is likely reactive. Patient discharged home -she already has a prescription for Zofran at home. She was given referral information for local neurology group, as her current management consists of her primary care physician in [place] managing her Depakote level. She has not had her Depakote level checked in years . We also discussed the importance of correctly checking her blood sugar. She seems to do this intermittently throughout the day, according to the patient and the . We discussed appropriate times, twice a day, before breakfast and before dinner. She is on metformin and weekly GLP-1, she does not take insulin. Medical Records Medical records reviewed: Yes I reviewed the patient's medical records Lab Data Lab results reviewed: Yes I reviewed the patient's lab results Labs: Lab Results 10/22/24 Range/Units 03:55 WBC 14.6 H (4.0-11.0) 10^3/uL RBC 4.24 (4.20-5.40) 10^6/uL Hgb 12.9 (12.0-16.0) g/dL Hct 37.9 (36.0-48.0) % MCV 89.4 (81.0-99.0) fL MCH 30.4 (26.7-34.0) pg MCHC 34.0 (29.9-35.2) g/dL RDW 13.0 (11.0-15.0) % Plt Count 301 (150-450) 10^3/uL MPV 9.3 L (9.5-13.5) fL Seg Neuts % (Manual) 56.0 (43.0-75.0) Lymphocytes % (Manual) 38.0 (20.5-60.0) % Monocytes % (Manual) 6.0 (1.7-12.0) % Eosinophils % (Manual) 0.0 L (0.9-7.0) % Basophils % (Manual) 0.0 L (0.2-2.0) % Neutrophils # (Manual) 8.17 H (1.4-6.5) 10^3/uL Lymphocytes # (Manual) 5.54 H (1.20-3.80) 10^3/uL Monocytes # (Manual) 0.87 H (0.30-0.80) 10^3/uL Eosinophils # (Manual) 0.00 (0.00-0.70) 10^3/uL Basophils # (Manual) 0.00 (0.00-0.10) 10^3/uL Sodium 135 L (136-145) mmol/L Potassium 3.7 (3.5-5.1) mmol/L Chloride 100 (98-107) mmol/L Carbon Dioxide 26.5 (21.0-32.0) mmol/L Anion Gap 12.2 BUN 9.0 (7.0-18.0) mg/dL Creatinine 0.77 (0.55-1.02) mg/dL Est GFR ( Amer) >60 (>=60 mL/min/1.73m^2) Est GFR (Non-Af Amer) >60 (>=60 mL/min/1.73m^2) BUN/Creatinine Ratio 11.7 Glucose 95 (74-106) mg/dL Calcium 8.5 (8.5-10.1) mg/dL Total Bilirubin 0.1 L (0.2-1.0) mg/dL AST 11 L (15-37) U/L ALT 17 (14-59) U/L Alkaline Phosphatase 57 (46-116) U/L Total Protein 6.4 (6.4-8.2) g/dL Albumin 3.2 L (3.4-5.0) g/dL Globulin 3.2 g/dL Albumin/Globulin Ratio 1.0 Lipase 52.0 (16.0-77.0) U/L Discharge Plan Discharge Chief Complaint: Seizure Clinical Impression: Generalized seizure, Leukocytosis, Gastroenteritis Patient Disposition: Home, Self-Care Time of Disposition Decision: 04:53 Prescriptions / Home Meds: No Action Trulicity 3 mg/0.5 mL pen injector 3 mg SUBCUT .weekly ketorolac 10 mg tablet 10 mg PO Q6H PRN (Reason: pain) meloxicam 15 mg tablet 15 mg PO DAILY Spectravite Women 18-400 mg-mcg tablet 1 tab PO Q24H ondansetron HCl 4 mg tablet 4 mg PO PRN (Reason: nausea and vomiting) sertraline 100 mg tablet 100 mg PO Q24H simvastatin 20 mg tablet 20 mg PO DAILY tizanidine 4 mg tablet 4 mg PO Q8H PRN (Reason: muscle spasticity) hblwoyycfr-patpmkdrsxhuy-qqad [Fioricet] 50-300-40 mg capsule 1 cap PO Q6H PRN (Reason: pain) 5 Days Qty: 20 0RF Vraylar 1.5 mg capsule 1.5 mg PO DAILY diazepam 5 mg tablet 5 mg PO DAILY divalproex 250 mg tablet,delayed release (DR/EC) 250 mg PO DAILY divalproex 500 mg tablet extended release 24 hr 500 mg PO DAILY doxazosin 2 mg tablet 2 mg PO DAILY Trulicity 0.75 mg/0.5 mL pen injector 0.75 mg SUBCUT DAILY Trulicity 1.5 mg/0.5 mL pen injector 1.5 mg SUBCUT DAILY ergocalciferol (vitamin D2) 1,250 mcg (50,000 unit) capsule 1,250 mcg PO DAILY ferrous sulfate [FeroSul] 325 mg (65 mg iron) tablet 325 mg PO DAILY gabapentin 800 mg tablet 800 mg PO DAILY tizanidine 4 mg capsule 8 mg PO BID PRN (Reason: muscle spasticity) metformin 500 mg tablet extended release 24 hr 500 mg PO DAILY Print Language: Swedish Instructions: Acute Nausea and Vomiting (ED), Epilepsy in Older Adults (ED) Referrals: [facility] [Primary Care Provider] - 1 week
[2024-10-22 04:16] LABS: Hematocrit 37.9 % (36.0-48.0); Hemoglobin 12.9 g/dL (12.0-16.0); Mean Corpuscular Hemoglobin 30.4 pg (26.7-34.0); Mean Corpuscular Volume 89.4 fL (81.0-99.0); Mean Platelet Volume 9.3 fL (9.5-13.5); Platelet Count 301 10^3/uL (150-450); Red Blood Count 4.24 10^6/uL (4.20-5.40); White Blood Count 14.6 10^3/uL (4.0-11.0)
[2024-10-22] MEDS: LORAZEPAM 2 MG/ML VIAL 1 MG IV (04:30)
[2024-10-22] MEDS: 0.9 % SODIUM CHLORIDE 1,000 ML 999 ML IV (04:30)
[2024-10-22] MEDS: ONDANSETRON PF 4 MG/2 ML VIAL IV (04:30)
[2024-10-22 04:44] LABS: Alanine Aminotransferase 17 U/L (14-59); Albumin Level 3.2 g/dL (3.4-5.0); Alkaline Phosphatase 57 U/L (46-116); Anion Gap 12.2; Aspartate Amino Transferase 11 U/L (15-37); BUN Creatinine Ratio 11.7; Bilirubin Total 0.1 mg/dL (0.2-1.0); Calcium 8.5 mg/dL (8.5-10.1); Carbon Dioxide 26.5 mmol/L (21.0-32.0); Chloride 100 mmol/L (98-107); Estimated GFR (African America >60 (>=60 mL/min/1.73m^2); Estimated GFR (Non-African Ame >60 (>=60 mL/min/1.73m^2); Globulin 3.2 g/dL; Glucose 95 mg/dL (74-106); Potassium 3.7 mmol/L (3.5-5.1); Sodium 135 mmol/L (136-145); Total Protein 6.4 g/dL (6.4-8.2)
[2024-10-22 04:46] LABS: Lymphocytes Absolute Manual 5.54 10^3/uL (1.20-3.80); Monocytes Absolute Manual 0.87 10^3/uL (0.30-0.80); Segmented Neut Absolute Manual 8.17 10^3/uL (1.4-6.5)
[2024-10-22 05:01] LABS: Valproic Acid 53.4 ug/mL (50.0-100.0)
[2024-10-22 05:38] VITALS: BP 122/82; PULSE 98; O2SAT 98
== END 2024-10-22 05:38 | disposition home or self-care (01) ==
PROVIDERS: Emergency Provider Emergency Medicine
DX: G40.909 Epilepsy, unspecified, not intractable, without status epilepticus (principal); K52.9 Noninfective gastroenteritis and colitis, unspecified; D72.829 Elevated white blood cell count, unspecified; F17.200 Nicotine dependence, unspecified, uncomplicated
CPT/HCPCS: 36415; 80053; 80164; 83690; 85007; 85027; 96361; 96374; 96375; 99284; J2060; J2405

== ENCOUNTER 2024-11-18 20:28 | Emergency (ER) | payer OTHER, SELFPAY ==
[2024-11-18 20:33] VITALS: BP 143/94; PULSE 102; TEMP 36.9; O2SAT 100; BMI 24.5
--- OUTSIDE RECORDS SUMMARY | 2024-11-18 20:36 | XMS_ITS | CCD ---
Author Organization [facility] Care Team Providers Care Catalogue Librarian Name Role Phone Ajit Pettit Primary Care Provider Piero Pettita Cat Attending Provider [facility], Services Primary Care Provider [facility], Services Primary Care Provider [phone] Piero Pettita E Attending Provider Kyler Miramontes Unavailable Girish Callaway Unavailable [facility] Primary Care Prov ider CHRISTINA Bergeron Emergency Provider Wilver HOUSEHOLD COORDINATOR-C Ajit Shelton Attending Provider DO Rod Alvarado Emergency Provider MD Jasmin Velázquez Attending Provider [facility] Services Primary Care Provider MD Jasmin Velázquez Attending Provider [phone] [facility], Services Primary Care Provider AJIT PETTIT Primary Care Physician [phone] [facility], Services Primary Care Prov ider MD Kyler Miramontes Attending Provider Spasic HOUSEHOLD COORDINATOR-C Ajit Shelton Attending Provider [facility], Services Primary Care Prov ider MD Kyler Miramontes Attending Provider Spasic, HOUSEHOLD COORDINATOR-C Ajit E Attending Provider MARKER ., DR [...] Care Provider UnavailMD Kyler Pulido Attending Provider [phone] [facility], . Primary Care Provider Spasic, HOUSEHOLD COORDINATOR-C Ajit E Primary Care Provider Spasic, HOUSEHOLD COORDINATOR-C Ajit E Attending Provider [facility] Primary Care Prov ider Visci, DO Carri Attending Provider Spasic, HOUSEHOLD COORDINATOR-C Ajit E Primary Care Provider Visci, DO Carri Attending Provider Spasic, HOUSEHOLD COORDINATOR-C Ajit E Primary Care Provider Visci, DO Carri Attending Provider [phone] MD Beltran Velez Admit Provider JULIANA Calderon Other Provider Unavailable JULIANA Danielle Other Provider Unavailable JULIANA Brar Other Provider Unavailable JULIANA Flor Other Provider Unavailable JULIANA Manzano Other Provider Unavailable JULIANA Sun Other Provider Unavailable Maishas, MOBILE LAB TECHNICIANYaw Ramirez Other Provider DO Evan Jackson Other Provider MD Familia Blair Other Provider [phone] DO Brandon Dowling Other Provider MD [...] Provider CHRISTINA Holguin Other Provider DO Mabel Lackye Other Provider JULIANA Noel Other Provider Unavailable MD Teo Taylor Other Provider DO Diego Noble Emergency Provider CARRI MANUEL Attending Unavailable Spasic, HOUSEHOLD COORDINATOR-C Ajit E Attending Provider Spasic, HOUSEHOLD COORDINATOR-C Ajit E Attending Provider Spasic, HOUSEHOLD COORDINATOR-C Ajit E Primary Care Provider [phone] MD Kyler Miramontes Attending Provider [phone] DO Abi Sunshine Attending Provider [phone] Spasic, HOUSEHOLD COORDINATOR-C Ajit E Primary Care Provider Spasic, HOUSEHOLD COORDINATOR-C Ajit E Attending Provider Spasic, HOUSEHOLD COORDINATOR-C Ajit E Primary Care Provider Spasic, HOUSEHOLD COORDINATOR-C Ajit E Primary Care Provider [phone] [...] Unavailable Spasic, Ajit E Primary Care Unavailable Beltran eVlez Admitting Unavailable Pastora Calderon Consulting Unavailable Sarina [...] source) traMADol Drug Allergy 09-24-20 [facility] Serotonin Reuptake Inhibitors (SSRIs) (1 source) Escitalopram Drug Allergy 09-24-20 Difficulty Breathing [facility] (20 sources) Escitalopram; Translations: [escitalopram] Drug Allergy 09-24-20 Difficulty Breathing [facility] (20 sources) traMADol; Translations: [tramadol] Drug Allergy 09-24-20 Seizure, Unknown, seizures [facility] (20 sources) Amitriptyline; Translations: [Amitriptyline] Drug Allergy 05-27-20 [facility] (20 sources) natural latex rubber; Translations: [Latex, Natural Rubber] Allergy to substance 05-27-20 Unknown Reaction, [facility] (20 sources) Sulfamethoxazole; Translations: [sulfamethoxazole] Drug Allergy 05-27-20 [facility] (20 sources) Trimethoprim; Translations: [trimethoprim] Drug Allergy 05-27-20 [facility] (8 sources) Latex; Translations: [latex] Drug allergy Weal (disorder) [facility] (7 sources) Sulfamethoxazole / Trimethoprim; Translations: [sulfamethoxazole-tr imethoprim] Drug Allergy Unknown (qualifier value) [facility] (1 source) Sulfamethoxazole / Trimethoprim Drug Allergy [facility] (1 source) Ultra Juancarlos Gold Drug allergy (disorder) [facility] (20 sources) nonoxynol 9; Translations: [nonoxynol 9] Allergy to substance 09-16-20 [facility] (2 sources) traMADol; Translations: [Ultram] Drug Allergy [facility] Repository Medications Current Medications Medication Drug Class(es) Dates Sig (Normalized) Sig (Original) Tylenol (20 sources) Start: 07-31-2022 Tylenol Oral, Refills(s) 0 Start Date: 07/31/22 Status: Ordered Start: 03-04-2022 take 1 capsule by mo cah twice daily Acetaminophen (Tylenol) 325 mg Capsule [...] sources) Provitamin D2 Compound Start: 06-30-2023 take 89509 [IU] by mouth every week Ergocalciferol (Vitamin D2) Active 20078 UNIT PO every week June 30, 2023 [...] Start: 10-27-2019 take 2 tablets by mo [facility] three times daily LORazepam 0.5 mg Tab mg tab(s), Oral, TID, Refills(s) 0 Start Date: 10/27/19 Status: Ordered take 1 tablet by [facility] every six hours LORazepam 0.5 MG 1 [...] 08, 2017 12:00am take 1 capsule by [facility] every eight hours tiZANidine HCl 6 [...] Ordered Start: 09-21-2018 take 1 tablet by [facility] once daily Divalproex (Depakote) 250 mg Tablet,Delayed Release (Dr/Ec) Active 250 MG PO every day at noon September 21, 2018 1:00am Start: 03-13-2018 take 2 tablets by [facility] twice daily Divalproex (Depakote) 250 mg Tablet,Delayed Release (Dr/Ec) Active 500 MG PO Twice daily March 13, 2018 12:00am Start: 03-13-2018 take 2 tablets by [facility] once daily Divalproex (Depakote) 250 mg Tablet,Delayed Release (Dr/Ec) Active 500 MG PO Daily March 13, 2018 12:00am take 1 tablet by [facility] every twelve hours Divalproex Sodium [...] tablet by mouth every six hours Hydrocodone-Acetaminophen (Timewell) 5-325 mg tablet Discontinued 1 TAB PO Q6H 7 2 September 29, 2018 May 18, 2022 11:27am Start: 03-13-2018 End: 04-24-2018 take 1 tablet by mouth every four to six hours Hydrocodone-Acetaminophen (Timewell) 5-325 mg tablet Discontinued 1 TAB PO [...] later, # 2 cap(s), Refills(s) 0, Pharmacy: [facility] [id number] Start Date: 07/31/22 Status: Ordered ciprofloxacin 500 [...] / neomycin 3.5 mg/ml / polymyxin b 27844 unt/ml otic suspension (20 sources) Aminoglycoside Antibacterial, Polymyxin-class Antibacterial, Corticosteroid Start: 09-21-2018 End: 10-01-2018 Dijrbqpa-Ezpyxukap-Yf Discontinued 4 DROPS OTIC Q6H 15 September [...] 06-08-2024 Chronic Other aftercare (1 source) Other half-way (current) drug therapy; Translations: [OTH DIAMOND BROKER 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 THERAPY] Onset: 02-02-2023 Episodic Other aftercare (1 source) 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; Translations: [JAIL USE ORAL HYPOGLYCEMIC DX] Onset: 02-02-2023 Episodic [...] US breast LT limited 09-06 breast LT [facility] [place] [address] Mammography Report Signed Patient: Rachel Mcgarry MR#: [id number] 1 : 1980 Acct:[id number] Age/Sex: 44 / F ADM Date: 09/06/24 Loc: DC Room: Type: [facility] Attending Dr: Ajit DEJESUS Copies to: OLEG Sharp Ordering Provider: OLEG Sharp Date of Service: 09/06/24 MM/MM diagnostic mammo LT w/CAD: Breast pain, left ([id number]) US/US breast LT limited: Breast pain, left [...] MD 09/06/24818 Signed By: 09/06/24855 Normal [facility] Glucose Poct Glucometerson 1 11-06-2023 Commemt1 Glu2: Cleaned Meter Normal [facility] Comment on above: Result Comment: PERF ORMED BY: [place] [address] PATHOLOGIST RECORD CENTER COORDINATOR NIKKIE MUNGUIA M.D. Performed By: #### A DDONUAPLUS #### [address] Glucose [Mass/Vol] 132 mg/dL Normal [facility] Comment on above: Result Comment: [facility] Glucose Reference Range is dependent on time and content of last meal. Glucose of more than 200 mg/dL in a nonstressed, ambulatory subject supports the diagnosis of Diabetes Mellitus. Performed By: #### A DDONUAPLUS #### [address] Pathology Request for Lab Co rpon 09-05-2024 Pathology Request for Lab Silvia Normal [facility] Comment on above: Order Comment: PATH SENDOUT-GI SPECIMEN Result Comment: See report. Scanned copy available in EMR. PERFORMED BY: [place] [address] PATHOLOGIST RECORD CENTER COORDINATOR NIKKIE MUNGUIA M.D. Performed By: #### U HCG #### [place] [id number] [facility] US breast RT limitedon 07-24 US breast RT limited [facility] [place] [address] Ultrasound Report Signed Patient: Rachel Mcgarry MR#: [id number] 1 : 1980 Acct:[id number] Age/Sex: 44 / F ADM Date: 07/24/24 Loc: [facility] Room: Type: [facility] Attending Dr: Ajit CALLAHANC Ordering Provider: OLEG [...] Praveen Welch M.D.07/25/2024 10:48 AM Dictation Location: [facility] Tech: Dominique Singh Transcribed By: ROSA MARIA 07/25/24 1048 Dictated By: Praveen Welch DO 07/24/24 1642 Signed By: 07/25/24 1048 Normal [facility] B hCG Qualon 07-09-2024 Beta HCG ( test) Ql Negative Normal [facility] Comment on above: Performed By: #### 2 [id number] #### [facility] [address] [place] [address] BMPon 07-09-2024 Anion gap [Moles/Vol] 12 mmol/L Normal 6-16 [facility] Comment on above: Performed By: #### 2 [id number] #### [facility] [address] [place] [address] Calcium [Mass/Vol] 8.9 mg/dL Normal 8.9-11.1 [facility] Comment on above: Performed By: #### 2 [id number] #### [facility] [address] [place] [address] Chloride [Moles/Vol] 99 mmol/L Low 101-111 [facility] Comment on above: Performed By: #### 2 [id number] #### [facility] [address] [place] [address] CO2 [Moles/Vol] 24 mmol/L Normal 21-31 [facility] Comment on above: Performed By: #### 2 [id number] #### [facility] [address] [place] [address] Creatinine [Mass/Vol] 0.5 mg/dL Normal 0.5-1.3 [facility] Comment on above: Performed By: #### 2 [id number] #### [facility] [address] [place] [address] Glucose [Mass/Vol] 149 mg/dL Normal 55-199 [facility] Comment on above: Performed By: #### 2 241789 #### [facility] [address] [place] [address] Potassium [Moles/Vol] 4.1 mmol/L Normal 3.5-5.3 [facility] Comment on above: Performed By: #### 2 [id number] #### [facility] [address] [place] [address] Sodium [Moles/Vol] 131 mmol/L Low 135-145 [facility] Comment on above: Performed By: #### 2 [id number] #### [facility] [address] [place] [address] Urea nitrogen [Mass/Vol] 9 mg/dL Normal 5-21 [facility] Comment on above: Performed By: #### 2 [id number] #### [facility] [address] [place] [address] Urea nitrogen/Creatinine [Mass ratio] 18 No Units Normal 10-20 [facility] Comment on above: Performed By: #### 2 [id number] #### [facility] [address] [place] [address] CBC w/ Auto Diffon 4 Basophils/100 WBC (Bld) 1.0 % Normal 0.0-2.0 [facility] Comment on above: Performed By: #### 2 [id number] #### [facility] [address] [place] [address] Basophils/Leukocytes Auto (Bld) [Pure # fraction] 0.2 E9/L Normal 0.0-0.2 [facility] Comment on above: Performed By: #### 2 665383 #### [facility] [address] [place] [address] Eosinophils (Bld) [#/Vol] 0.1 E9/L Normal 0.0-0.5 [facility] Comment on above: Performed By: #### 2 322560 #### [facility] [address] [place] [address] Eosinophils/100 WBC (Bld) 0.8 % Normal 0.0-8.0 [facility] Comment on above: Performed By: #### 2 580362 #### [facility] [address] [place] [address] Erythrocyte distribution width (RBC) [Ratio] 13.2 % Normal 10.9-14.2 [facility] Comment on above: Performed By: #### 2 [id number] #### [facility] [address] [place] [address] Hematocrit (Bld) [Volume fraction] 38.9 % Normal 34.0-46.0 [facility] Comment on above: Performed By: #### 2 595448 #### [facility] [address] [place] [address] Hemoglobin (Bld) [Mass/Vol] 13.4 g/dL Normal 12.0-16.0 [facility] Comment on above: Performed By: #### 2 408201 #### [facility] [address] [place] [address] Lymphocytes (Bld) [#/Vol] 3.7 E9/L Normal 1.0-4.0 [facility] Comment on above: Performed By: #### 2 [id number] #### [facility] [address] [place] [address] Lymphocytes/100 WBC (Bld) 24.7 % Normal 14.0-50.0 [facility] Comment on above: Performed By: #### 2 248177 #### [facility] [address] [place] [address] MCH (RBC) [Entitic mass] 30.4 pg Normal 27.0-34.0 [facility] Comment on above: Performed By: #### 2 085535 #### [facility] [address] [place] [address] MCHC (RBC) [Mass/Vol] 34.5 g/dL Normal 31.4-36.0 [facility] Comment on above: Performed By: #### 2 [id number] #### [facility] [address] [place] [address] MCV (RBC) [Entitic vol] 88.1 fL Normal 80.0-100.0 [facility] Comment on above: Performed By: #### 2 [id number] #### [facility] [address] [place] [address] Monocytes (Bld) [#/Vol] 0.7 E9/L Normal 0.2-1.0 [facility] Comment on above: Performed By: #### 2 630410 #### [facility] [address] [place] [address] Neutrophils (Bld) [#/Vol] 10.3 E9/L High 2.0-7.5 [facility] Comment on above: Performed By: #### 2 207809 #### [facility] [address] [place] [address] Neutrophils/100 WBC (Bld) 69.1 % Normal 36.0-75.0 [facility] Comment on above: Performed By: #### 2 [id number] #### [facility] [address] [place] [address] Platelet mean volume (Bld) [Entitic vol] 8.3 fL Normal 6.4-10.8 [facility] Comment on above: Performed By: #### 2 [id number] #### [facility] [address] [place] [address] Platelets (Bld) [#/Vol] 319.0 E9/L Normal 150. 0-500. 0 [facility] Comment on above: Performed By: #### 2 [id number] #### [facility] [address] [place] [address] RBC (Bld) [#/Vol] 4.4 E12/L Normal 4.3-5.9 [facility] Comment on above: Performed By: #### 2 094009 #### [facility] [address] [place] [address] WBC corrected for nucl RBC Auto (Bld) [#/Vol] 14.9 E9/L High 4.0-11.0 [facility] Comment on above: Result Comment: Kaela pheral smear review performed. Performed By: #### 2 [id number] #### [facility] [address] [place] [address] CHEMISTRYOrdered By: SYSTEM SYSTEM on 07-09-2024 Troponin [...] Sensitivity Troponin I Instructions For Use, [place], May 2018) Albumin [Mass/Vol] 4.0 g/dL Normal [...] 28.9 s Normal 25.1 - 36.5 second(s) [facility] Auto Coag Comment on above: Interpretive Data: [...] the same coagulation reagent and instrumentation as [facility]. Currently there are no coagulation studies available worldwide for children to 14 days, and no normal ranges. Heparin therapeutic range (represented by Anti-Factor Xa activity of 0.2 - 0.4 U/mL) corresponds to PTT of 56.6 - 109.0 sec. INR Coag (PPP) [Relative time] 0.85 {INR} Invalid Interpretation Code [facility] Auto Coag Comment on above: Interpretive Data: I NR results are specifically intended to assess patients stabilized on long-term Anticoagulation therapy suggested INR s Less Intensive Anticoagulation 2.0 3.0 Conventional Range 3.0 4.5 PT Coag (PPP) [Time] 9.5 s Normal 9.4 - 1 2.5 second(s) [facility] Auto Coag Comment on above: Interpretive Data: [...] the same coagulation reagent and instrumentation as [facility]. Currently there are no coagulation studies available worldwide for children to 14 days, and no normal ranges. ED Clinical Summaryon 2023 ED Clinical Summary ED Clinical Summary [address] [address] ED Clinical Summary Person Information Name: RACHEL MCGARRY [facility] Age: 44 Years : 1980 Sex: Female Language: Khmer PCP: AJIT PETTIT CNP Marital Status: Phone: [phone] Visit Id: Visit Reason: Syncope/Near syncope; Body [...] 07/09/2024 15:24:59 07/09/2024 15:24:59 07/09/2024 15:24:59 ADDRESS: [address] [place] [phone] PHYS DOC NOTES: MEDICAL INFORMATION: Prescriptions Given: [...] up: With: Address: When: AJIT PETTIT [address] [place] [address] [facility] (1) In 3 days 07/12/2024 Comments: [...] worsening symptoms. DIAGNOSIS: Malaise; Viral syndrome Normal [facility] ED Clinical Summary ED Clinical Summary [address] [address] ED Clinical Summary Person Information Name: RACHEL MCGARRY [place] Age: 44 Years : 1980 Sex: Female Language: Khmer PCP: AJIT PETTIT CNP Marital Status: Phone: [phone] Visit Id: Visit Reason: Syncope/Near syncope; Body [...] 07/09/2024 13:32:08 Discharge Request 07/09/2024 14:17:25 ADDRESS: [address] [place] [id number] PHYS DOC NOTES: MEDICAL INFORMATION: Prescriptions Given: [...] Address: When: AJIT PETTIT [address] [place], [place] [id number] Business (1) In 3 days 07/12/2024 Comments: [...] worsening symptoms. DIAGNOSIS: Malaise; Viral syndrome Normal [facility] ED Note-Physicianon 07-09-20 ED Note-Physician ED Note-Physician Basic Information Time Seen: Ambrose Cedeño DO 07/09/2024 13:18 Chief Complaint really shakey, light headed and I feel llike I'm gonna pass out . pt verbalized has been sick for 1 week and been to two different hospitals and diagnosised wiht low sodium and elevated WBC. pt had CT of abd and x-ray and went to [facility] History of Present Illness 44-year-old female to the emergency department with chief complaint of feeling unwell for the last week. She reports she has had malaise, fatigue, intermittently shaky, felt lightheaded earlier. She reports that she has been seen both at [facility] [place] and some urgency department in [facility] emergency department this week for [...] dry clinically. Previous labs and imaging from [facility] in [facility] reviewed. Aside from her mild leukocytosis and [...] slight leukocytosis, down from previous labs at [facility] and [facility]. Otherwise unremarkable. Mild hyponatremia which [...] In 3 days 07/12/2024 EDT [address] [place] [address]- Business (1) Additional Instructions: Call the office [...] worsening symp (more content not included)... Normal [facility] Comment on above: Result Comment: Elec tronically Signed By: Ambrose Cedeño DO\.br\Date and Time Signed: 07/09/24 14:21 EDT ED Patient Summaryon 024 ED Patient Summary ED Patient Summary [address] [address] Patient Discharge Instructions Person Information Name: RACHEL MCGARRY Age: 44 Years Arrival Date: 07/09/2024 12:39:08 Discharge Diagnosis: Malaise; Viral syndrome Primary Care Physician: AJIT PETTIT CNP Provider Information Primary Provider: Ambrose Cedeño DO [employer] Manager:None The exam and treatment you received in the Emergency Department were for an urgent problem and are not intended as complete care. It is important that you follow up with a doctor, nurse practitioner, or physician?s construction management assistant for ongoing care. If your symptoms [...] Address: When: AJIT PETTIT [address] [place] [address] [employer] (1) In 3 days 07/12/2024 Comments: Call [...] opioids can be used to help relieve jgkzbaxe-ij-lvwtjr pain and are often prescribed following a [...] place a (more content not included)... Normal [facility] ED Patient Summary ED Patient Summary [place] [id number] Patient Discharge Instructions Person Information Name: RACHEL MCGARRY Age: 44 Years Arrival Date: 07/09/2024 12:39:08 Discharge Diagnosis: Malaise; Viral syndrome Primary Care Physician: AJIT PETTIT CNP Provider Information Primary Provider: Ambrose Cedeño DO Advanced Engineering Group Manager:None The exam and treatment you received in the Emergency Department were for an urgent problem and are not intended as complete care. It is important that you follow up with a doctor, nurse practitioner, or physician?s construction management assistant for ongoing care. If your symptoms become worse or you do not improve as expected and you are unable to reach your usual health care provider, you should return to the Emergency Department. We are available 24 hours a day. RACHEL MCAGRRY has been given the following list of patient education materials, prescriptions and follow-up instructions: Follow-up Instructions: With: Address: When: AJIT WILVER [address] [place] [address] [employer] (1RayV In 3 days 07/12/2024 Comments: Call the [...] opioids can be used to help relieve mwvmhvrs-ub-uvcpci pain and are often prescribed following a [...] place a (more content not included)... Normal [facility] HEMATOLOGYOrdered By: SYSTEM SYSTEM on 07-09-2024 Basophils/100 [...] 07-09-2024 Albumin [Mass/Vol] 4.0 g/dL Normal 3.3-5.0 [facility] Comment on above: Performed By: #### 2 [id number] #### [facility] [address] [place] [address] Albumin/Globulin (S) [Mass conc ratio] 1.3 Normal 1.1-2.2 [facility] Comment on above: Performed By: #### 2 [id number] #### [facility] [address] [place] [address] ALP [Catalytic activity/Vol] 65 Int._Unit/L Normal 21-98 [facility] Comment on above: Performed By: #### 2 [id number] #### [facility] [address] [place] [address] ALT No additional P-5'-P [Catalytic activity/Vol] 10 Int._Unit/L Normal 6-46 [facility] Comment on above: Performed By: #### 2 [id number] #### [facility] [address] [place] [address] AST [Catalytic activity/Vol] 11 Int._Unit/L Normal 5-43 [facility] Comment on above: Performed By: #### 2 [id number] #### [facility] [address] [place] [address] Bilirubin [Mass/Vol] 0.2 mg/dL Normal 0.0-1.1 [facility] Comment on above: Performed By: #### 2 [id number] #### [facility] [address] [place] [address] Bilirubin.direct [Mass/Vol] 0.0 mg/dL Normal 0.0-0.4 [facility] Comment on above: Performed By: #### 2 [id number] #### [facility] [address] [place] [address] Bilirubin.indirect [Mass or moles/Vol] 0.2 mg/dL Normal 0.1-0.9 [facility] Comment on above: Performed By: #### 2 [id number] #### [facility] [address] [place] [address] Globulin (S) [Mass/Vol] 3.2 g/dL Normal 1.4-4.0 [facility] Comment on above: Performed By: #### 2 [id number] #### [facility] [address] [place] [address] Protein [Mass/Vol] 7.2 g/dL Normal 6.0-7.8 [facility] Comment on above: Performed By: #### 2 [id number] #### [facility] [address] [place] [address] PT & PTTon 07-09-2024 aPTT Coag (PPP) [Time] 28.9 second(s) Normal 25.1-36.5 [facility] Comment on above: Result Comment: Para meter [...] the same coagulation reagent and instrumentation as [facility]. Currently there are no coagulation studies available worldwide for children to 14 days, and no normal ranges. Heparin therapeutic range (represented by Anti-Factor Xa activity of 0.2 - 0.4 U/mL) corresponds to PTT of 56.6 - 109.0 sec. Performed By: #### 1 [id number] #### [facility] [address] [place] [address] INR Coag (PPP) [Relative time] 0.85 {INR} Invalid Interpretation Code [facility] Comment on above: Result Comment: INR results are specifically intended to assess patients stabilized on long-term Anticoagulation therapy suggested INR?s ?Less Intensive Anticoagulation? 2.0 ? 3.0 Conventional Range 3.0 ? 4.5 Performed By: #### 1 [id number] #### [facility] [address] [place] [address] PT Coag (PPP) [Time] 9.5 second(s) Normal 9.4-12.5 [facility] Comment on above: Result Comment: 15 d [...] the same coagulation reagent and instrumentation as [facility]. Currently there are no coagulation studies available worldwide for children to 14 days, and no normal ranges. Performed By: #### 1 [id number] #### [facility] [address] [place] [address] SEROLOGYOrdered By: Rosanna Phillips on 07-09-2024 Beta HCG ( test) Ql Negative (07/09/24 12:50 PM) Normal [facility] Man Sero Troponin 0 Hr.on 07-09-2024 Troponin HS 3.00 pg/mL Low 10.10-27.1 0 [facility] Comment on above: Result Comment: The 95% CI (Confidence Interval) PPV (Positive Predictive Value) for myocardial infarction in females is 38 pg/mL, in males 51 pg/mL. The results should be used in conjunction with clinical conditions of myocardial infarction. (Access High Sensitivity Troponin I Instructions For Use, [employer], May 2018) Performed By: #### 1 [id number] #### [facility] [address] [place] [address] Troponin 1 Hr.on 07-09-2024 Troponin HS 3.60 pg/mL Low 10.10-27.1 0 [facility] Comment on above: Result Comment: The 95% CI (Confidence Interval) PPV (Positive Predictive Value) for myocardial infarction in females is 38 pg/mL, in males 51 pg/mL. The results should be used in conjunction with clinical conditions of myocardial infarction. (Access High Sensitivity Troponin I Instructions For Use, [employer]book, May 2018) Performed By: #### 1 [id number] #### [facility] [address] [place] [address] XR Chest Single Viewon 07-09 XR Chest [...] mGy = na DAP = na Normal [facility] eGFRon 07-09-2024 eGFR 117 mL/min/1.73 m2 Normal >=59 [facility] Comment on above: Performed By: #### 1 [id number] #### [facility] [address] [place] [address] Alanine aminotransferase [En zymatic activity/volume] in Serum or PlasmaOrdered By: Jono Ferrari on 07-06-2024 ALT [Catalytic activity/Vol] 9 U/L Normal 7-52 [facility] Comment on above: Performed By: #### C BC, CMP, LIPASE ####[facility] [id number] [place] [address] [facility] Albumin [Mass/volume] in Ser um or Plasma by Bromocresol green (BCG) dye binding methoOrdered By: Jono Ferrari on 07-06-2024 Albumin BCG dye [Mass/Vol] 4.2 g/dL 3.5-5.7 [facility] Alkaline phosphatase [Enzyma tic activity/volume] in Serum or PlasmaOrdered By: Jono Ferrari on 07-06-2024 ALP [Catalytic activity/Vol] 59 U/L Normal 34-104 [facility] Comment on above: Performed By: #### C BC, CMP, LIPASE ####[address] Aspartate aminotransferase [ Enzymatic activity/volume] in Serum or PlasmaOrdered By: Jono Ferrari on 07-06-2024 AST [Catalytic activity/Vol] 10 U/L Low 13-39 [facility] Comment on above: Performed By: #### C BC, CMP, LIPASE ####[address] Automated basophil %Ordered By: Jono Ferrari on 07-06-2024 Basophils/100 WBC (Bld) 1.1 % Normal . [facility] Comment on above: Performed By: #### C BC, CMP, LIPASE ####[address] Automated basophil countOrde red By: Jono Ferrari on 07-06-2024 Basophils (Bld) [#/Vol] 0.3 10*3/uL High 0.0-0.2 [facility] Comment on above: Result Comment: PERF ORMED BY: [facility] [address] [place] [address] PATHOLOGIST RECORD CENTER COORDINATOR RIDGE HUERTA M.D. Performed By: #### C BC, CMP, LIPASE ####[address] Automated blood monocyte cou ntOrdered By: Jono Ferrari on 07-06-2024 Monocytes (Bld) [#/Vol] 1.6 10*3/uL High 0.0-0.8 [facility] Comment on above: Performed By: #### C BC, CMP, LIPASE ####[address] Automated eosinophil %Ordere d By: Jono Ferrari on 07-06-2024 Eosinophils/100 WBC (Bld) 0.6 % Normal . [facility] Comment on above: Performed By: #### C BC, CMP, LIPASE ####[place] [id number] [facility] Automated eosinophil countOr dered By: Jono Ferrari on 07-06-2024 Eosinophils (Bld) [#/Vol] 0.1 10*3/uL Normal 0.0-0.45 [facility] Comment on above: Performed By: #### C BC, CMP, LIPASE ####[facility] Automated monocyte %Ordered By: Jono Ferrari on 07-06-2024 Monocytes/100 WBC (Bld) 6.9 % Normal . [facility] Comment on above: Performed By: #### C BC, CMP, LIPASE ####[place] [id number] [address] Automated neutrophil %Ordere d By: Jono Ferrari on 07-06-2024 Neutrophils/100 WBC (Bld) 66.1 % Normal . [facility] Comment on above: Performed By: #### C BC, CMP, LIPASE ####[place] [id number] [address] Bilirubin.total [Mass/volume ] in Serum or PlasmaOrdered By: Jono Ferrari on 07-06-2024 Bilirubin [Mass/Vol] 0.3 mg/dL Normal 0.3-1.0 [facility] Comment on above: Performed By: #### C BC, CMP, LIPASE ####[address] abdomen pelvis w conon CT abdomen pelvis w con [facility] [place] [address] [place] [address] CT Scan Report Signed Patient: Rachel Mcgarry MR#: [id number] 1 : 1980 Acct:[id number] Age/Sex: 44 / F ADM Date: 07/06/24 [...] Praveen Welch M.D.07/06/2024 7:13 PM Dictation Location: [place] [address] Transcribed By: [facility] 07/06/241912 Dictated By: Praveen Welch DO 07/06/241910 Signed By: 07/06/241912 Normal [facility] Calcium [Mass/volume] in Ser um or PlasmaOrdered By: Jono Ferrari on 07-06-2024 Calcium [Mass/Vol] 9.2 mg/dL Normal 8.6-10.3 [facility] Comment on above: Performed By: #### C BC, CMP, LIPASE ####[facility] [id number] [place] [id number] [facility] Carbon dioxide, total [Moles /volume] in Serum or PlasmaOrdered By: Jono Ferrari on 07-06-2024 CO2 [Moles/Vol] 25.2 mmol/L Normal 21.0-31.0 [facility] Comment on above: Performed By: #### C BC, CMP, LIPASE ####[facility] [id number] [place] [id number] [facility] Chloride [Moles/volume] in S alissa or PlasmaOrdered By: Jono Ferrari on 07-06-2024 Chloride [Moles/Vol] 97 mmol/L Low 98-107 [facility] Comment on above: Performed By: #### C BC, CMP, LIPASE ####[address] Complete Blood Count Auto Di ffon 07-06-2024 Mean Corpuscular HGB Conc 34.5 g/dL Normal 32.0-35.0 [facility] Comment on above: Performed By: #### C BC, CMP, LIPASE ####[address] Monocytes/100 WBC (Bld) 18.69 % Normal 0.00-20.00 [facility] Comment on above: Performed By: #### C BC, CMP, LIPASE ####[address] NRBC% 0.0 /100{WBC} Normal 0-0.5 [facility] Comment on above: Performed By: #### C BC, CMP, LIPASE ####[address] Comprehensive Metabolic Pane rosa 07-06-2024 Albumin [Mass/Vol] 4.2 g/dL Normal 3.5-5.7 [facility] Comment on above: Performed By: #### C BC, CMP, LIPASE ####[address] Creatinine Clr Calc Pharmacy 108.35 Normal [facility] Comment on above: Result Comment: PERF ORMED BY: [facility] [address] [place] [address] PATHOLOGIST RECORD CENTER COORDINATOR RIDGE HUERTA M.D. Performed By: #### C BC, CMP, LIPASE ####[address] GFR/1.73 sq M.predicted MDRD (S/P/Bld) [Vol rate/Area] mL/min/{1.73_m2} Normal [facility] Comment on above: Performed By: #### C BC, CMP, LIPASE ####[address] Creatinine [Mass/volume] in Serum or PlasmaOrdered By: Jono Ferrari on 07-06-2024 Creatinine [Mass/Vol] 0.59 mg/dL Low 0.60-1.20 [facility] Comment on above: Performed By: #### C BC, CMP, LIPASE ####[facility] [address] [place] [id number] [facility] ECG 12 lead ECGon 07-06-2024 ECG 12 lead ECG [facility] [place] [address] [place] [address] Electrocardiograph Report Signed Patient: Rachel Mcgarry MR#: [id number] 1 : 1980 Acct:[id number] Age/Sex: 44 / F ADM Date: 07/06/24 [...] 7:36:31 PM Referred By: Electronically Signed By: EDAN MUNOZ MD Transcribed By: MUS Signed By Edna Munoz MD 07/06/24 193 Normal [facility] Erythrocyte distribution wid th [Ratio] by Automated countOrdered By: Jono Ferrari on 07-06-2024 Erythrocyte distribution width (RBC) [Ratio] 13.2 % Normal 11.9-15.3 [facility] Comment on above: Performed By: #### C BC, CMP, LIPASE ####[facility] [id number] [place] [id number] [facility] Erythrocytes [#/volume] in B lood by Automated countOrdered By: Jono eFrrari on 07-06-2024 RBC (Bld) [#/Vol] 4.93 10*6/uL Normal 3.60-5.00 [facility] Comment on above: Performed By: #### C BC, CMP, LIPASE ####[address] Glucose [Mass/volume] in Ser um or PlasmaOrdered By: Jono Ferrari on 07-06-2024 Glucose [Mass/Vol] 142 mg/dL High 70-100 [facility] Comment on above: ADA recommended refe rence rangeRandom Glucose Reference Range is dependent on time and content of last meal. Glucose of more than 200 mg/dL in a nonstressed, ambulatory subject supports the diagnosis of Diabetes Mellitus. Result Comment: Regina om Glucose Reference Range is dependent on time and content of last meal. Glucose of more than 200 mg/dL in a nonstressed, ambulatory subject supports the diagnosis of Diabetes Mellitus. ADA recommended reference range Performed By: #### C BC, CMP, LIPASE ####[address] Hematocrit [Volume Fraction] of Blood by Automated countOrdered By: Jono Ferrari on 07-06-2024 Hematocrit (Bld) [Volume fraction] 43.5 % Normal 34.0-46.4 [facility] Comment on above: Performed By: #### C BC, CMP, LIPASE ####[address] Hemoglobin [Mass/volume] in BloodOrdered By: Jono Ferrari on 07-06-2024 Hemoglobin (Bld) [Mass/Vol] 15.0 g/dL Normal 11.8-15.4 [facility] Comment on above: Performed By: #### C BC, CMP, LIPASE ####[place] [id number] [facility] Leukocytes [#/volume] correc cherie for nucleated erythrocytes in Blood by Automated counOrdered By: Jono Ferrari on 07-06-2024 WBC corrected for nucl RBC Auto (Bld) [#/Vol] 22.9 10*3/uL High 3.8-11.6 [facility] Leukocytes [#/volume] in Blo od by Automated countOrdered By: Jono Ferrari on 07-06-2024 WBC (Bld) [#/Vol] 22.9 10*3/uL High 3.8-11.6 [facility] Comment on above: Performed By: #### C BC, CMP, LIPASE ####[address] Lipase [Enzymatic activity/v olume] in Serum or PlasmaOrdered By: Jono Ferrari on 07-06-2024 Lipase [Catalytic activity/Vol] 48.0 U/L Normal 11.0-82.0 [facility] Comment on above: Result Comment: PERF ORMED BY: [facility] [address] [place] [address] PATHOLOGIST RECORD CENTER COORDINATOR RIDGE HUERTA M.D. Performed By: #### C BC, CMP, LIPASE ####[address] Lymphocytes [#/volume] in Bl ood by Automated countOrdered By: Jono Ferrari on 07-06-2024 Lymphocytes (Bld) [#/Vol] 5.8 10*3/uL High 1.00-4.8 [facility] Comment on above: Performed By: #### C BC, CMP, LIPASE ####[address] Lymphocytes/100 leukocytes i n Blood by Automated countOrdered By: Jono Ferrari on 07-06-2024 Lymphocytes/100 WBC (Bld) 25.3 % Normal . [facility] Comment on above: Performed By: #### C BC, CMP, LIPASE ####[place] [id number] [facility] MCH [Entitic mass] by Automa cherie countOrdered By: Jono Ferrari on 07-06-2024 MCH (RBC) [Entitic mass] 30.5 pg Normal 24.7-34.3 [facility] Comment on above: Performed By: #### C BC, CMP, LIPASE ####[address] MCHC Auto (RBC) [Mass/Vol]Or dered By: Jono Ferrari on 07-06-2024 MCHC (RBC) [Mass/Vol] 34.5 g/dL 32.0-35.0 [facility] MCV [Entitic volume] by Auto mated countOrdered By: Jono Ferrari on 07-06-2024 MCV (RBC) [Entitic vol] 88.3 fL Normal 80-100 [facility] Comment on above: Performed By: #### C BC, CMP, LIPASE ####[facility] [id number] Monocyte distribution width [Entitic volume] in Blood by AutomatedOrdered By: Jono Ferrari on 07-06-2024 Monocyte distribution width Auto (Bld) [Entitic vol] 18.69 % 0.00-20.00 [facility] Neutrophils [#/volume] in Bl ood by Automated countOrdered By: Jono Ferrari on 07-06-2024 Neutrophils (Bld) [#/Vol] 15.1 10*3/uL High 1.8-7.7 [facility] Comment on above: Performed By: #### C BC, CMP, LIPASE ####[address] No Panel InformationOrdered By: Jono Ferrari on 07-06-2024 Estimated GFR (CKD-EPI) > 60.0 mL/Min [facility] Creatinine Clearance (Chem 108.35 [facility] Nucleated erythrocytes [Pres ence] in Blood by Automated countOrdered By: Jono Ferrari on 07-06-2024 Nucleated RBC Auto Ql (Bld) 0.0 /100{WBC} 0-0.5 [facility] Platelet mean volume [Entiti c volume] in Blood by Automated countOrdered By: Jono Ferrari on 07-06-2024 Platelet mean volume (Bld) [Entitic vol] 7.2 fL Normal 6.3-10.7 [facility] Comment on above: Performed By: #### C BC, CMP, LIPASE ####[place] [id number] [address] Platelets [#/volume] in Bloo d by Automated countOrdered By: Jono Ferrari on 07-06-2024 Platelets (Bld) [#/Vol] 387 10*3/uL Normal 150-450 [facility] Comment on above: Performed By: #### C BC, CMP, LIPASE ####[facility] Potassium [Moles/volume] in Serum or PlasmaOrdered By: Jono Ferrari on 07-06-2024 Potassium [Moles/Vol] 3.9 mmol/L Normal 3.5-5.1 [facility] Comment on above: Performed By: #### C BC, CMP, LIPASE ####[place] [id number] [address] Protein [Mass/volume] in Ser um or PlasmaOrdered By: Jono Ferrari on 07-06-2024 Protein [Mass/Vol] 7.2 g/dL Normal 6.4-8.9 [facility] Comment on above: Performed By: #### C BC, CMP, LIPASE ####[place] [id number] [address] Serum globulin measurement b y calculation (mass/volume)Ordered By: Jono Ferrari on 07-06-2024 Globulin (S) [Mass/Vol] 3.0 g/dL Normal [facility] Comment on above: Performed By: #### C BC, CMP, LIPASE ####[address] Serum or plasma albumin/glob ulin mass ratioOrdered By: Jono Ferrari on 07-06-2024 Albumin/Globulin [Mass ratio] 1.4 {ratio} Normal [facility] Comment on above: Performed By: #### C BC, CMP, LIPASE ####[place] [id number] [place] [id number] [facility] Serum or plasma anion gap de terminationOrdered By: Jono Ferrari on 07-06-2024 Anion gap [Moles/Vol] 13.7 mmol/L Normal 6.0-15.0 [facility] Comment on above: Performed By: #### C BC, CMP, LIPASE ####[facility] [place] [id number] [facility] Sodium [Moles/volume] in Ser um or PlasmaOrdered By: Jono Ferrari on 07-06-2024 Sodium [Moles/Vol] 132 mmol/L Low 136-145 [facility] Comment on above: Performed By: #### C BC, CMP, LIPASE ####[facility] [id number] [place] [phone] [facility] Urea nitrogen [Mass/volume] in Serum or PlasmaOrdered By: Jono Ferrari on 07-06-2024 Urea nitrogen [Mass/Vol] 8 mg/dL Normal 7-25 [facility] Comment on above: Performed By: #### C BC, CMP, LIPASE ####[facility] XR chest 2V*on 07-06-2024 XR chest 2V* [facility] [place] [address] [place] [address] XRay Report Signed Patient: Rachel Mcgarry MR#: [id number] 1 : 1980 Acct:[id number] Age/Sex: 44 / F ADM Date: 07/06/24 [...] Praveen Welch M.D.07/06/2024 8:10 PM Dictation Location: [place] [address] Transcribed By: [facility] 07/06/242009 Dictated By: Praveen Welch DO 07/06/242008 Signed By: 07/06/242009 [facility] Alanine aminotransferase [En zymatic activity/volume] in Serum or PlasmaOrdered By: Ajit Pettit on 07-04-2024 ALT [Catalytic activity/Vol] 7 U/L Normal 7-52 [facility] Comment on above: Performed By: #### A DDONUAPLUS #### [address] Albumin [Mass/volume] in Ser um or Plasma by Bromocresol green (BCG) dye binding methoOrdered By: Ajit Pettit on 07-04-2024 Albumin BCG dye [Mass/Vol] 3.8 g/dL 3.5-5.7 [facility] Alkaline phosphatase [Enzyma tic activity/volume] in Serum or PlasmaOrdered By: Ajit Pettit on 07-04-2024 ALP [Catalytic activity/Vol] 54 U/L Normal 34-104 [facility] Comment on above: Performed By: #### A DDONUAPLUS #### [address] Aspartate aminotransferase [ Enzymatic activity/volume] in Serum or PlasmaOrdered By: Ajit Pettit on 07-04-2024 AST [Catalytic activity/Vol] 8 U/L Low 13-39 [facility] Comment on above: Performed By: #### A DDONUAPLUS #### [address] Automated basophil %Ordered By: Ajit Pettit on 07-04-2024 Basophils/100 WBC (Bld) 0.6 % Normal . [facility] Comment on above: Performed By: #### A DDONUAPLUS #### [address] Automated basophil countOrde red By: Ajit Pettit on 07-04-2024 Basophils (Bld) [#/Vol] 0.1 10*3/uL Normal 0.0-0.2 [facility] Comment on above: Result Comment: PERF ORMED BY: [place] [address] PATHOLOGIST RECORD CENTER COORDINATOR RIDGE HUERTA M.D. Performed By: #### A DDONUAPLUS #### [address] Automated blood monocyte cou ntOrdered By: Ajit Pettit on 07-04-2024 Monocytes (Bld) [#/Vol] 1.5 10*3/uL High 0.0-0.8 [facility] Comment on above: Performed By: #### A DDONUAPLUS #### [address] Automated eosinophil %Ordere d By: Ajit Spasic on 07-04-2024 Eosinophils/100 WBC (Bld) 0.5 % Normal . [facility] Comment on above: Performed By: #### A DDONUAPLUS #### [address] Automated eosinophil countOr dered By: Ajit Millanc on 07-04-2024 Eosinophils (Bld) [#/Vol] 0.1 10*3/uL Normal 0.0-0.45 [facility] Comment on above: Performed By: #### A DDONUAPLUS #### [address] Automated monocyte %Ordered By: Ajit Millanc on 07-04-2024 Monocytes/100 WBC (Bld) 7.9 % Normal . [facility] Comment on above: Performed By: #### A DDONUAPLUS #### [address] Automated neutrophil %Ordere d By: Ajit Spasic on 07-04-2024 Neutrophils/100 WBC (Bld) 66.4 % Normal . [facility] Comment on above: Performed By: #### A DDONUAPLUS #### [address] Bilirubin.total [Mass/volume ] in Serum or PlasmaOrdered By: Ajit Millanc on 07-04-2024 Bilirubin [Mass/Vol] 0.3 mg/dL Normal 0.3-1.0 [facility] Comment on above: Performed By: #### A DDONUAPLUS #### [facility] [address] [place] [address] [place] Calcium [Mass/volume] in Ser um or PlasmaOrdered By: Ajit Pettit on 07-04-2024 Calcium [Mass/Vol] 8.9 mg/dL Normal 8.6-10.3 [facility] Comment on above: Performed By: #### A DDONUAPLUS #### [facility] [address] [place] [address] [place] Carbon dioxide, total [Moles /volume] in Serum or PlasmaOrdered By: Ajit Pettit on 07-04-2024 CO2 [Moles/Vol] 29.2 mmol/L Normal 21.0-31.0 [facility] Comment on above: Performed By: #### A DDONUAPLUS #### [facility] [address] [place] [address] [place] Chloride [Moles/volume] in S alissa or PlasmaOrdered By: Ajit Pettit on 07-04-2024 Chloride [Moles/Vol] 92 mmol/L Low 98-107 [facility] Comment on above: Performed By: #### A DDONUAPLUS #### [facility] [address] [place] [address] [place] Cholesterol [Mass/volume] in Serum or PlasmaOrdered By: Ajit Pettit on 07-04-2024 Cholesterol [Mass/Vol] 185 mg/dL Normal 140-200 [facility] Comment on above: Chol less than 200 m g/dl low riskChol 201-239 mg/dl borderline riskChol 240 mg/dl and greater high risk Result Comment: Chol less than 200 mg/dl low risk Chol 201-239 mg/dl borderline risk Chol 240 mg/dl and greater high risk Performed By: #### A DDONUAPLUS #### [place] [address] [place] Cholesterol in LDL Calc [Mas s/Vol]Ordered By: Ajit Pettit on 07-04-2024 Cholesterol in LDL [Mass/Vol] 58 mg/dL 0-100 [facility] Comment on above: LDL ATP III CLASSIFI CATIONLDL less than 100 mg/dL OptimalLDL 100-129 mg/dL Near or above optimalLDL 130-159 mg/dL Borderline highLDL 160-189 mg/dL HighLDL greater than 189 mg/dL Very high Cholesterol in VLDL Calc [Ma ss/Vol]Ordered By: Ajit Pettit on 07-04-2024 Cholesterol in VLDL [Mass/Vol] 78 mg/dL [facility] Complete Blood Count Auto Di ffon 07-04-2024 Mean Corpuscular HGB Conc 34.2 g/dL Normal 32.0-35.0 [facility] Comment on above: Performed By: #### A DDONUAPLUS #### [address] NRBC% 0.1 /100{WBC} Normal 0-0.5 [facility] Comment on above: Performed By: #### A DDONUAPLUS #### [address] Comprehensive Metabolic Pane rosa 07-04-2024 Albumin [Mass/Vol] 3.8 g/dL Normal 3.5-5.7 [facility] Comment on above: Performed By: #### A DDONUAPLUS #### [address] GFR/1.73 sq M.predicted MDRD (S/P/Bld) [Vol rate/Area] mL/min/{1.73_m2} Normal [facility] Comment on above: Performed By: #### A DDONUAPLUS #### [address] Creatinine [Mass/volume] in Serum or PlasmaOrdered By: Ajit Pettit on 07-04-2024 Creatinine [Mass/Vol] 0.61 mg/dL Normal 0.60-1.20 [facility] Comment on above: Performed By: #### A DDONUAPLUS #### [address] Erythrocyte distribution wid th [Ratio] by Automated countOrdered By: Ajit Pettit on 07-04-2024 Erythrocyte distribution width (RBC) [Ratio] 13.0 % Normal 11.9-15.3 [facility] [facility] Comment on above: Performed By: #### A DDONUAPLUS #### [address] Erythrocytes [#/volume] in B lood by Automated countOrdered By: Ajit Pettit on 07-04-2024 RBC (Bld) [#/Vol] 4.55 10*6/uL Normal 3.60-5.00 [facility] Comment on above: Performed By: #### A DDONUAPLUS #### [address] Glucose [Mass/volume] in Ser um or PlasmaOrdered By: Ajit Pettit on 07-04-2024 Glucose [Mass/Vol] 164 mg/dL High 70-100 [facility] Comment on above: ADA recommended refe rence rangeRandom Glucose Reference Range is dependent on time and content of last meal. Glucose of more than 200 mg/dL in a nonstressed, ambulatory subject supports the diagnosis of Diabetes Mellitus. Result Comment: Regina om Glucose Reference Range is dependent on time and content of last meal. Glucose of more than 200 mg/dL in a nonstressed, ambulatory subject supports the diagnosis of Diabetes Mellitus. ADA recommended reference range Performed By: #### A DDONUAPLUS #### [address] Hematocrit [Volume Fraction] of Blood by Automated countOrdered By: Ajit Pettit on 07-04-2024 Hematocrit (Bld) [Volume fraction] 40.0 % Normal 34.0-46.4 [facility] Comment on above: Performed By: #### A DDONUAPLUS #### [place] [address] [place] Hemoglobin [Mass/volume] in BloodOrdered By: Ajit Pettit on 07-04-2024 Hemoglobin (Bld) [Mass/Vol] 13.7 g/dL Normal 11.8-15.4 [facility] Comment on above: Performed By: #### A DDONUAPLUS #### [address] Leukocytes [#/volume] correc cherie for nucleated erythrocytes in Blood by Automated counOrdered By: Ajit Pettit on 07-04-2024 WBC corrected for nucl RBC Auto (Bld) [#/Vol] 19.3 10*3/uL High 3.8-11.6 [facility] Leukocytes [#/volume] in Blo od by Automated countOrdered By: Ajit Pettit on 07-04-2024 WBC (Bld) [#/Vol] 19.3 10*3/uL High 3.8-11.6 [facility] Comment on above: Performed By: #### A DDONUAPLUS #### [address] Lipid Panelon 07-04-2024 LDL Cholesterol,Calculated 58 mg/dL Normal 0-100 [facility] Comment on above: Result Comment: LDL ATP III CLASSIFICATION LDL less than 100 mg/dL Optimal LDL 100-129 mg/dL Near or above optimal LDL 130-159 mg/dL Borderline high LDL 160-189 mg/dL High LDL greater than 189 mg/dL Very high Performed By: #### A DDONUAPLUS #### [address] Triglyceride w/Reflex 393 mg/dL High 0-149 [facility] Comment on above: Result Comment: TRIG ATP III CLASSIFICATION TRIG less than 150 mg/dL Normal TRIG 150-199 mg/dL Borderline high TRIG 200-500 mg/dL High TRIG greater than 500 mg/dL Very high Standard traceable to the Center for Disease Conrtrol and Prevention (CDC) test method. Performed By: #### A DDONUAPLUS #### [address] VLDL CHOLESTEROL 78 mg/dL Normal [facility] Comment on above: Performed By: #### A DDONUAPLUS #### [place] [address] [place] Lymphocytes [#/volume] in Bl ood by Automated countOrdered By: Ajit Pettit on 07-04-2024 Lymphocytes (Bld) [#/Vol] 4.7 10*3/uL Normal 1.00-4.8 [facility] Comment on above: Performed By: #### A DDONUAPLUS #### [address] Lymphocytes/100 leukocytes i n Blood by Automated countOrdered By: Ajit Pettit on 07-04-2024 Lymphocytes/100 WBC (Bld) 24.6 % Normal . [facility] Comment on above: Performed By: #### A DDONUAPLUS #### [address] MCH [Entitic mass] by Automa cherie countOrdered By: Ajit Pettit on 07-04-2024 MCH (RBC) [Entitic mass] 30.0 pg Normal 24.7-34.3 [facility] Comment on above: Performed By: #### A DDONUAPLUS #### [address] MCHC Auto (RBC) [Mass/Vol]Or dered By: Ajit Pettit on 07-04-2024 MCHC (RBC) [Mass/Vol] 34.2 g/dL 32.0-35.0 [facility] MCV [Entitic volume] by Auto mated countOrdered By: jAit Pettit on 07-04-2024 MCV (RBC) [Entitic vol] 87.9 fL Normal 80-100 [facility] Comment on above: Performed By: #### A DDONUAPLUS #### [address] Neutrophils [#/volume] in Bl ood by Automated countOrdered By: Ajit Pettit on 07-04-2024 Neutrophils (Bld) [#/Vol] 12.8 10*3/uL High 1.8-7.7 [facility] Comment on above: Performed By: #### A DDONUAPLUS #### [address] No Panel InformationOrdered By: Ajit Pettit on 07-04-2024 Estimated GFR (CKD-EPI) > 60.0 mL/Min [facility] Creatinine Clearance (Chem N/A [facility] Nucleated erythrocytes [Pres ence] in Blood by Automated countOrdered By: Ajit Pettit on 07-04-2024 Nucleated RBC Auto Ql (Bld) 0.1 /100{WBC} 0-0.5 [facility] Platelet mean volume [Entiti c volume] in Blood by Automated countOrdered By: Ajit Pettit on 07-04-2024 Platelet mean volume (Bld) [Entitic vol] 7.0 fL Normal 6.3-10.7 [facility] Comment on above: Performed By: #### A DDONUAPLUS #### [facility] [address] [place] [address] [place] Platelets [#/volume] in Bloo d by Automated countOrdered By: Ajit Pettit on 07-04-2024 Platelets (Bld) [#/Vol] 350 10*3/uL Normal 150-450 [facility] Comment on above: Performed By: #### A DDONUAPLUS #### [facility] [address] [place] [address] [place] Potassium [Moles/volume] in Serum or PlasmaOrdered By: Ajit Pettit on 07-04-2024 Potassium [Moles/Vol] 4.6 mmol/L Normal 3.5-5.1 [facility] Comment on above: Performed By: #### A DDONUAPLUS #### [facility] [address] [place] [address] [place] Protein [Mass/volume] in Ser um or PlasmaOrdered By: Ajit Pettit on 07-04-2024 Protein [Mass/Vol] 5.9 g/dL Low 6.4-8.9 [facility] Comment on above: Performed By: #### A DDONUAPLUS #### [facility] [address] [place] [address] [place] Serum globulin measurement b y calculation (mass/volume)Ordered By: Ajit Pettit on 07-04-2024 Globulin (S) [Mass/Vol] 2.1 g/dL Normal [facility] Comment on above: Performed By: #### A DDONUAPLUS #### [facility] [address] [place] [address] Serum or plasma albumin/glob ulin mass ratioOrdered By: Ajit Pettit on 07-04-2024 Albumin/Globulin [Mass ratio] 1.8 {ratio} Normal [facility] Comment on above: Performed By: #### A DDONUAPLUS #### [address] Serum or plasma anion gap de terminationOrdered By: Ajit Pettit on 07-04-2024 Anion gap [Moles/Vol] 13.4 mmol/L Normal 6.0-15.0 [facility] Comment on above: Performed By: #### A DDONUAPLUS #### [address] Serum or plasma high density lipoprotein (HDL) cholesterol measurementOrdered By: Ajit Pettit on 07-04-2024 Cholesterol in HDL [Mass/Vol] 48 mg/dL Normal 23-92 [facility] Comment on above: HDL CHOL ATP-III CLA SSIFICATION Cardiovascular RiskHDL > or equal to 60 mg/dL LOWHDL < 40 mg/dL HIGH Result Comment: HDL CHOL ATP-III CLASSIFICATION Cardiovascular Risk HDL > or equal to 60 mg/dL LOW HDL < 40 mg/dL HIGH Performed By: #### A DDONUAPLUS #### [address] Serum or plasma total choles terol/high density lipoprotein (HDL) cholesterol mass ratOrdered By: Ajit Pettit on 07-04-2024 Cholesterol.total/Suellen sterol in HDL [Mass ratio] 3.9 {ratio} Normal <5.0 [facility] Comment on above: Result Comment: PERF ORMED BY: [place] [address] PATHOLOGIST REC[employer] CENTER COORDINATOR RIDGE HUERTA M.D. Performed By: #### A DDONUAPLUS #### [address] Sodium [Moles/volume] in Ser um or PlasmaOrdered By: Ajit Pettit on 07-04-2024 Sodium [Moles/Vol] 130 mmol/L Low 136-145 [facility] Comment on above: Performed By: #### A DDONUAPLUS #### [facility] [address] [place] [address] Triglyceride [Mass/volume] i n Serum or PlasmaOrdered By: Ajit Pettit on 07-04-2024 Triglyceride [Mass/Vol] 393 mg/dL High 0-149 [facility] Comment on above: TRIG ATP III CLASSIF ICATIONTRIG less than 150 mg/dL NormalTRIG 150-199 mg/dL Borderline highTRIG 200-500 mg/dL High TRIG greater than 500 mg/dL Very highStandard traceable to the Center for Disease Conrtrol and Prevention (CDC) test method. Urea nitrogen [Mass/volume] in Serum or PlasmaOrdered By: Ajit Pettit on 07-04-2024 Urea nitrogen [Mass/Vol] 6 mg/dL Low 7-25 [facility] Comment on above: Performed By: #### A DDONUAPLUS #### [address] MR lumbar spine wo conon MR lumbar spine wo con [place] [address] MRI Report Signed Patient: Rachel Mcgarry MR#: [id number] 1 : 1980 Acct:[id number] Age/Sex: 44 / F ADM Date: 06/08/24 [facility] Room: Type: [facility] Attending Dr: Ajit DEJESUS Copies to: OLEG [...] Dar Messina M.D.06/08/2024 4:52 PM Dictation Location: [place] [address] Transcribed By: [facility] 06/08/24 1652 Dictated By: Dar Messina II, MD 06/08/24 1643 Signed By: 06/08/24 1652 Normal [facility] A1C with Estimated Average G lethan 05-16-2024 Glucose [Mass/Vol] 137 mg/dL Normal [facility] Comment on above: Order Comment: Name Collection Type:: Martinez Catheter Result Comment: PERF ORMED BY: [place] [address] PATHOLOGIST RECORD CENTER COORDINATOR RIDGE HUERTA M.D. Performed By: #### A DDONUAPLUS #### [place] [address] [place] Alanine aminotransferase [En zymatic activity/volume] in Serum or PlasmaOrdered By: Ajit Pettit on 05-16-2024 ALT [Catalytic activity/Vol] 11 U/L Normal 7-52 [facility] Comment on above: Order Comment: Name Collection Type:: Martinez Catheter Performed By: #### A DDONUAPLUS #### [place] [address] [place] Albumin [Mass/volume] in Ser um or Plasma by Bromocresol green (BCG) dye binding methoOrdered By: Ajit Pettit on 05-16-2024 Albumin BCG dye [Mass/Vol] 4.2 g/dL 3.5-5.7 [facility] Alkaline phosphatase [Enzyma tic activity/volume] in Serum or PlasmaOrdered By: Ajit Pettit on 05-16-2024 ALP [Catalytic activity/Vol] 62 U/L Normal 34-104 [facility] Comment on above: Order Comment: Name Collection Type:: Martinez Catheter Performed By: #### A DDONUAPLUS #### [place] [address] [place] Aspartate aminotransferase [ Enzymatic activity/volume] in Serum or PlasmaOrdered By: Ajit Pettit on 05-16-2024 AST [Catalytic activity/Vol] 11 U/L Low 13-39 [facility] Comment on above: Order Comment: Name Collection Type:: Martinez Catheter Performed By: #### A DDONUAPLUS #### [place] [address] [place] Automated basophil %Ordered By: Ajit Pettit on 05-16-2024 Basophils/100 WBC (Bld) 0.6 % Normal . [facility] Comment on above: Order Comment: Name Collection Type:: Martinez Catheter Performed By: #### A DDONUAPLUS #### [address] Automated basophil countOrde red By: Ajit Pettit on 05-16-2024 Basophils (Bld) [#/Vol] 0.1 10*3/uL Normal 0.0-0.2 [facility] Comment on above: Order Comment: Name Collection Type:: Martinez Catheter Result Comment: PERF ORMED BY: [place] [address] PATHOLOGIST RECORD CENTER COORDINATOR RIDGE HUERTA M.D. Performed By: #### A DDONUAPLUS #### [address] Automated blood monocyte cou ntOrdered By: Ajit Pettit on 05-16-2024 Monocytes (Bld) [#/Vol] 0.7 10*3/uL Normal 0.0-0.8 [facility] Comment on above: Order Comment: Name Collection Type:: Martinez Catheter Performed By: #### A DDONUAPLUS #### [address] Automated eosinophil %Ordere d By: Ajit Pettit on 05-16-2024 Eosinophils/100 WBC (Bld) 0.4 % Normal . [facility] Comment on above: Order Comment: Name Collection Type:: Martinez Catheter Performed By: #### A DDONUAPLUS #### [address] Automated eosinophil countOr dered By: Ajit Pettit on 05-16-2024 Eosinophils (Bld) [#/Vol] 0.1 10*3/uL Normal 0.0-0.45 [facility] Comment on above: Order Comment: Name Collection Type:: Martinez Catheter Performed By: #### A DDONUAPLUS #### [address] Automated monocyte %Ordered By: Ajit Lariossic on 05-16-2024 Monocytes/100 WBC (Bld) 4.4 % Normal . [facility] Comment on above: Order Comment: Name Collection Type:: Martinez Catheter Performed By: #### A DDONUAPLUS #### [facility] [address] [place] [address] [place] Automated neutrophil %Ordere d By: Ajit Spasic on 05-16-2024 Neutrophils/100 WBC (Bld) 61.6 % Normal . [facility] Comment on above: Order Comment: Name Collection Type:: Martinez Catheter Performed By: #### A DDONUAPLUS #### [place] [address] [place] Bilirubin.total [Mass/volume ] in Serum or PlasmaOrdered By: Ajit Spasic on 05-16-2024 Bilirubin [Mass/Vol] 0.3 mg/dL Normal 0.3-1.0 [facility] Comment on above: Order Comment: Name Collection Type:: Martinez Catheter Performed By: #### A DDONUAPLUS #### [place] [address] [place] Calcium [Mass/volume] in Ser um or PlasmaOrdered By: Ajit Spasic on 05-16-2024 Calcium [Mass/Vol] 9.0 mg/dL Normal 8.6-10.3 [facility] Comment on above: Order Comment: Name Collection Type:: Martinez Catheter Performed By: #### A DDONUAPLUS #### [facility] [address] [place] [address] [place] Carbon dioxide, total [Moles /volume] in Serum or PlasmaOrdered By: Ajit Spasic on 05-16-2024 CO2 [Moles/Vol] 26.0 mmol/L Normal 21.0-31.0 [facility] Comment on above: Order Comment: Name Collection Type:: Martinez Catheter Performed By: #### A DDONUAPLUS #### [place] [address] [place] Chloride [Moles/volume] in S alissa or PlasmaOrdered By: Ajit Spasic on 05-16-2024 Chloride [Moles/Vol] 96 mmol/L Low 98-107 [facility] Comment on above: Order Comment: Name Collection Type:: Martinez Catheter Performed By: #### A DDONUAPLUS #### [facility] [address] Cholesterol [Mass/volume] in Serum or PlasmaOrdered By: Ajit Pettit on 05-16-2024 Cholesterol [Mass/Vol] 237 mg/dL High 140-200 [facility] Comment on above: Chol less than 200 m g/dl low riskChol 201-239 mg/dl borderline riskChol 240 mg/dl and greater high risk Order Comment: Name Collection Type:: Martinez Catheter Result Comment: Chol less than 200 mg/dl low risk Chol 201-239 mg/dl borderline risk Chol 240 mg/dl and greater high risk Performed By: #### A DDONUAPLUS #### [facility] [address] Cholesterol in LDL Calc [Mas s/Vol]Ordered By: Ajit Pettit on 05-16-2024 Cholesterol in LDL [Mass/Vol] 130 mg/dL High 0-100 [facility] Comment on above: LDL ATP III CLASSIFI CATIONLDL less than 100 mg/dL OptimalLDL 100-129 mg/dL Near or above optimalLDL 130-159 mg/dL Borderline highLDL 160-189 mg/dL HighLDL greater than 189 mg/dL Very high Cholesterol in VLDL Calc [Ma ss/Vol]Ordered By: Ajit Pettit on 05-16-2024 Cholesterol in VLDL [Mass/Vol] 64 mg/dL [facility] Complete Blood Count Auto Di ffon 05-16-2024 Mean Corpuscular HGB Conc 34.3 g/dL Normal 32.0-35.0 [facility] Comment on above: Order Comment: Name Collection Type:: Martinez Catheter Performed By: #### A DDONUAPLUS #### [facility] [address] NRBC% 0.1 /100{WBC} Normal 0-0.5 [facility] Comment on above: Order Comment: Name Collection Type:: Martinez Catheter Performed By: #### A DDONUAPLUS #### [address] Comprehensive Metabolic Pane rosa 05-16-2024 Albumin [Mass/Vol] 4.2 g/dL Normal 3.5-5.7 [facility] Comment on above: Order Comment: Name Collection Type:: Martinez Catheter Performed By: #### A DDONUAPLUS #### [address] GFR/1.73 sq M.predicted MDRD (S/P/Bld) [Vol rate/Area] mL/min/{1.73_m2} Normal [facility] Comment on above: Order Comment: Name Collection Type:: Martinez Catheter Performed By: #### A DDONUAPLUS #### [address] Creatinine [Mass/volume] in Serum or PlasmaOrdered By: Ajit Pettit on 05-16-2024 Creatinine [Mass/Vol] 0.47 mg/dL Low 0.60-1.20 [facility] Comment on above: Order Comment: Name Collection Type:: Martinez Catheter Performed By: #### A DDONUAPLUS #### [address] Erythrocyte distribution wid th [Ratio] by Automated countOrdered By: Ajit Pettit on 05-16-2024 Erythrocyte distribution width (RBC) [Ratio] 13.3 % Normal 11.9-15.3 [facility] Comment on above: Order Comment: Name Collection Type:: Martinez Catheter Performed By: #### A DDONUAPLUS #### [place] [address] [place] Erythrocytes [#/volume] in B lood by Automated countOrdered By: Ajit Pettit on 05-16-2024 RBC (Bld) [#/Vol] 4.64 10*6/uL Normal 3.60-5.00 [facility] Comment on above: Order Comment: Name Collection Type:: Martinez Catheter Performed By: #### A DDONUAPLUS #### [address] [place] [address] [place] Glucose [Mass/volume] in Ser um or PlasmaOrdered By: Ajit Pettit on 05-16-2024 Glucose [Mass/Vol] 74 mg/dL Normal 70-100 [facility] Comment on above: ADA recommended refe rence rangeRandom Glucose Reference Range is dependent on time and content of last meal. Glucose of more than 200 mg/dL in a nonstressed, ambulatory subject supports the diagnosis of Diabetes Mellitus. Order Comment: Name Collection Type:: Martinez Catheter Result Comment: Regina om Glucose Reference Range is dependent on time and content of last meal. Glucose of more than 200 mg/dL in a nonstressed, ambulatory subject supports the diagnosis of Diabetes Mellitus. ADA recommended reference range Performed By: #### A DDONUAPLUS #### [facility] [address] [place] [id number] [facility] Glucose mean value [Mass/vol ume] in Blood Estimated from glycated hemoglobinOrdered By: Ajit Pettit on 05-16-2024 Average glucose Estimated from glycated hemoglobin (Bld) [Mass/Vol] 137 mg/dL [facility] Hematocrit [Volume Fraction] of Blood by Automated countOrdered By: Ajit Pettit on 05-16-2024 Hematocrit (Bld) [Volume fraction] 41.1 % Normal 34.0-46.4 [facility] Comment on above: Order Comment: Name Collection Type:: Martinez Catheter Performed By: #### A DDONUAPLUS #### [facility] [address] [place] [id number] [place] Hemoglobin A1c percentageOrd ered By: Ajit Pettit on 05-16-2024 HbA1c (Bld) [Mass fraction] 6.4 % High 4.3-5.6 [facility] Comment on above: Increased risk for d iabetes: 5.7 - 6.4diabetes: >6.4glycemic control for adults with diabetes: <7.0 Order Comment: Name Collection Type:: Martinez Catheter Result Comment: Incr eased risk for diabetes: 5.7 - 6.4 diabetes: >6.4 glycemic control for adults with diabetes: <7.0 Performed By: #### A DDONUAPLUS #### [facility] [address] Hemoglobin [Mass/volume] in BloodOrdered By: Ajit Pettit on 05-16-2024 Hemoglobin (Bld) [Mass/Vol] 14.1 g/dL Normal 11.8-15.4 [facility] Comment on above: Order Comment: Name Collection Type:: Martinez Catheter Performed By: #### A DDONUAPLUS #### [facility] [address] Leukocytes [#/volume] correc cherie for nucleated erythrocytes in Blood by Automated counOrdered By: Ajit Pettit on 05-16-2024 WBC corrected for nucl RBC Auto (Bld) [#/Vol] 15.0 10*3/uL High 3.8-11.6 [facility] Leukocytes [#/volume] in Blo od by Automated countOrdered By: Ajit Pettit on 05-16-2024 WBC (Bld) [#/Vol] 15.0 10*3/uL High 3.8-11.6 [facility] Comment on above: Order Comment: Name Collection Type:: Martinez Catheter Performed By: #### A DDONUAPLUS #### [address] Lipid Panelon 05-16-2024 LDL Cholesterol,Calculated 130 mg/dL High 0-100 [facility] Comment on above: Order Comment: Name Collection Type:: Martinez Catheter Result Comment: LDL ATP III CLASSIFICATION LDL less than 100 mg/dL Optimal LDL 100-129 mg/dL Near or above optimal LDL 130-159 mg/dL Borderline high LDL 160-189 mg/dL High LDL greater than 189 mg/dL Very high Performed By: #### A DDONUAPLUS #### [facility] [address] [place] [address] Triglyceride w/Reflex 321 mg/dL High 0-149 [facility] Comment on above: Order Comment: Name Collection Type:: Martinez Catheter Result Comment: TRIG ATP III CLASSIFICATION TRIG less than 150 mg/dL Normal TRIG 150-199 mg/dL Borderline high TRIG 200-500 mg/dL High TRIG greater than 500 mg/dL Very high Standard traceable to the Center for Disease Conrtrol and Prevention (CDC) test method. Performed By: #### A DDONUAPLUS #### [address] VLDL CHOLESTEROL 64 mg/dL Normal [facility] Comment on above: Order Comment: Name Collection Type:: Martinez Catheter Performed By: #### A DDONUAPLUS #### [address] Lymphocytes [#/volume] in Bl ood by Automated countOrdered By: Ajit Pettit on 05-16-2024 Lymphocytes (Bld) [#/Vol] 5.0 10*3/uL High 1.00-4.8 [facility] Comment on above: Order Comment: Name Collection Type:: Martinez Catheter Performed By: #### A DDONUAPLUS #### [address] Lymphocytes/100 leukocytes i n Blood by Automated countOrdered By: Ajit Pettit on 05-16-2024 Lymphocytes/100 WBC (Bld) 33.0 % Normal . [facility] Comment on above: Order Comment: Name Collection Type:: Martinez Catheter Performed By: #### A DDONUAPLUS #### [address] MCH [Entitic mass] by Automa cherie countOrdered By: Ajit Pettit on 05-16-2024 MCH (RBC) [Entitic mass] 30.3 pg Normal 24.7-34.3 [facility] Comment on above: Order Comment: Name Collection Type:: Martinez Catheter Performed By: #### A DDONUAPLUS #### [address] MCHC Auto (RBC) [Mass/Vol]Or dered By: Ajit Pettit on 05-16-2024 MCHC (RBC) [Mass/Vol] 34.3 g/dL 32.0-35.0 [facility] MCV [Entitic volume] by Auto mated countOrdered By: Ajit Pettit on 08-13-2024 MCV (RBC) [Entitic vol] 88.4 fL Normal 80-100 [facility] Comment on above: Order Comment: Name Collection Type:: Martinez Catheter Performed By: #### A DDONUAPLUS #### [address] Neutrophils [#/volume] in Bl ood by Automated countOrdered By: Ajit Pettit on 05-16-2024 Neutrophils (Bld) [#/Vol] 9.3 10*3/uL High 1.8-7.7 [facility] Comment on above: Order Comment: Name Collection Type:: Martinez Catheter Performed By: #### A DDONUAPLUS #### [address] No Panel InformationOrdered By: Ajit Pettit on 05-16-2024 Estimated GFR (CKD-EPI) > 60.0 mL/Min [facility] Creatinine Clearance (Chem N/A [facility] Nucleated erythrocytes [Pres ence] in Blood by Automated countOrdered By: Ajit Pettit on 05-16-2024 Nucleated RBC Auto Ql (Bld) 0.1 /100{WBC} 0-0.5 [facility] Platelet mean volume [Entiti c volume] in Blood by Automated countOrdered By: Ajit Pettit on 05-16-2024 Platelet mean volume (Bld) [Entitic vol] 7.9 fL Normal 6.3-10.7 [facility] Comment on above: Order Comment: Name Collection Type:: Martinez Catheter Performed By: #### A DDONUAPLUS #### [place] [address] [place] Platelets [#/volume] in Bloo d by Automated countOrdered By: Ajit Pettit on 05-16-2024 Platelets (Bld) [#/Vol] 400 10*3/uL Normal 150-450 [facility] Comment on above: Order Comment: Name Collection Type:: Martinez Catheter Performed By: #### A DDONUAPLUS #### [address] Potassium [Moles/volume] in Serum or PlasmaOrdered By: Ajit Pettit on 05-16-2024 Potassium [Moles/Vol] 4.1 mmol/L Normal 3.5-5.1 [facility] Comment on above: Order Comment: Name Collection Type:: Martinez Catheter Performed By: #### A DDONUAPLUS #### [facility] [address] [place] [address] Protein [Mass/volume] in Ser um or PlasmaOrdered By: Ajit Pettit on 05-16-2024 Protein [Mass/Vol] 6.7 g/dL Normal 6.4-8.9 [facility] Comment on above: Order Comment: Name Collection Type:: Martinez Catheter Performed By: #### A DDONUAPLUS #### [address] Serum globulin measurement b y calculation (mass/volume)Ordered By: Ajit Pettit on 05-16-2024 Globulin (S) [Mass/Vol] 2.5 g/dL Normal [facility] Comment on above: Order Comment: Name Collection Type:: Martniez Catheter Performed By: #### A DDONUAPLUS #### [facility] [address] [place] [address] Serum or plasma albumin/glob ulin mass ratioOrdered By: Ajit Pettit on 05-16-2024 Albumin/Globulin [Mass ratio] 1.7 {ratio} Normal [facility] Comment on above: Order Comment: Name Collection Type:: Martinez Catheter Performed By: #### A DDONUAPLUS #### [facility] [address] [place] [address] Serum or plasma anion gap de terminationOrdered By: Ajit Pettit on 05-16-2024 Anion gap [Moles/Vol] 13.1 mmol/L Normal 6.0-15.0 [facility] Comment on above: Order Comment: Name Collection Type:: Martinez Catheter Performed By: #### A DDONUAPLUS #### [facility] [address] [place] [address] Serum or plasma high density lipoprotein (HDL) cholesterol measurementOrdered By: Ajit Pettit on 05-16-2024 Cholesterol in HDL [Mass/Vol] 43 mg/dL Normal 23-92 [facility] Comment on above: HDL CHOL ATP-III CLA SSIFICATION Cardiovascular RiskHDL > or equal to 60 mg/dL LOWHDL < 40 mg/dL HIGH Order Comment: Name Collection Type:: Martinez Catheter Result Comment: HDL CHOL ATP-III CLASSIFICATION Cardiovascular Risk HDL > or equal to 60 mg/dL LOW HDL < 40 mg/dL HIGH Performed By: #### A DDONUAPLUS #### [facility] [address] [place] [address] Serum or plasma total choles terol/high density lipoprotein (HDL) cholesterol mass ratOrdered By: Ajit Pettit on 05-16-2024 Cholesterol.total/Suellen sterol in HDL [Mass ratio] 5.5 {ratio} Normal <5.0 [facility] Comment on above: Order Comment: Name Collection Type:: Martinez Catheter Performed By: #### A DDONUAPLUS #### [facility] [address] [place] [address] [place] Sodium [Moles/volume] in Ser um or PlasmaOrdered By: Ajit Pettit on 05-16-2024 Sodium [Moles/Vol] 131 mmol/L Low 136-145 [facility] Comment on above: Order Comment: Name Collection Type:: Martinez Catheter Performed By: #### A DDONUAPLUS #### [facility] [address] [place] [address] [place] Thyroid Stim Hormone w/Rflxo n 05-16-2024 Thyroid Stim Hormone w/Rflx 1.69 u[iU]/mL Normal 0.45-5.33 [facility] Comment on above: Order Comment: Name Collection Type:: Martinez Catheter Performed By: #### A DDONUAPLUS #### [facility] [address] [place] [address] [place] Thyrotropin [Units/volume] i n Serum or PlasmaOrdered By: Ajit Pettit on 05-16-2024 TSH Qn 1.69 m[IU]/L 0.45-5.33 [facility] Triglyceride [Mass/volume] i n Serum or PlasmaOrdered By: Ajit Pettit on 05-16-2024 Triglyceride [Mass/Vol] 321 mg/dL High 0-149 [facility] Comment on above: TRIG ATP III CLASSIF ICATIONTRIG less than 150 mg/dL NormalTRIG 150-199 mg/dL Borderline highTRIG 200-500 mg/dL High TRIG greater than 500 mg/dL Very highStandard traceable to the Center for Disease Conrtrol and Prevention (CDC) test method. Urea nitrogen [Mass/volume] in Serum or PlasmaOrdered By: Ajit Pettit on 05-16-2024 Urea nitrogen [Mass/Vol] 5 mg/dL Low 7-25 [facility] Comment on above: Order Comment: Name Collection Type:: Martinez Catheter Performed By: #### A DDONUAPLUS #### [place] [id number] [facility] Vitamin D 25 Hydroxy Totalon 05-16-2024 Vitamin D 25 Hydroxy Total 46.2 ng/mL Normal 30-100 [facility] Comment on above: Order Comment: Name Collection Type:: Martinez Catheter Result Comment: MICHAEL MIN D STATUS 25(OH)VITAMIN D RANGE (ng/mL) Deficient <20 Insufficient 20 to <30 Sufficient 30 to 100 Reference: Dominique Restrepo, Gillian NINA, et al. Evaluation,treatment, and prevention of vitamin D deficiency; an Endocrine Society clinical practice guideline. JCEM. 2010; 96(7):1911-30. PERFORMED BY: [place] [address] PATHOLOGIST RECORD CENTER COORDINATOR RIDGE HUERTA M.D. Performed By: #### A DDONUAPLUS #### [place] [id number] [facility] Vitamin D+Metabolites [Mass/ volume] in Serum or PlasmaOrdered By: Ajit Pettit on 05-16-2024 Vitamin D+Metabolites [Mass/Vol] 46.2 ng/mL 30-100 [facility] Comment on above: VITAMIN D STATUS 25( [place])VITAMIN D RANGE (ng/mL) Deficient <20 Insufficient 20 to <30Sufficient 30 to 100Reference: Dominique Restrepo, Gillian NINA, et al. Evaluation,treatment, and prevention of vitamin D deficiency; an Endocrine Society clinical practice guideline. JCEM. 2010; 96(7):1911-30. Capillary blood glucose ashwini urement by glucometer (mass/volume)Ordered By: Abi Sunshine on 03-16-2024 Glucose [Mass/Vol] 140 mg/dL Normal [facility] Comment on above: Random Glucose Refer ence Range is dependent on time and content of last meal. Glucose of more than 200 mg/dL in a nonstressed, ambulatory subject supports the diagnosis of Diabetes Mellitus. Result Comment: Regina om Glucose Reference Range is dependent on time and content of last meal. Glucose of more than 200 mg/dL in a nonstressed, ambulatory subject supports the diagnosis of Diabetes Mellitus. PERFORMED BY: [place] [address] PATHOLOGIST RECORD CENTER COORDINATOR RIDGE HUERTA M.D. Performed By: #### C UBLD, [facility] #### [address] 03-16-2024 L Specimen: [id number] Received: 03/16/24 Status: BLUE Neal Num: [id number] Spec Type: Surgical Subm Dr: Abi Sunshine DO Tissues: A Colon Biopsy (RT RANDOM COLON BX) B Colon Biopsy (RANDOM LT) C Colon Biopsy (TRANSV POLYPS) D Colon Biopsy (RECTAL POLYP) Procedures: HE/8, Gross/Micro L4/4 Age/ Patient Sex Location Account Attending Physician Rachel Mcgarry 44/F [id number] Abi Sunshine DO SPEC NUM: [id number] RECD: 03/16/24 STATUS: BLUE NEAL NUM: [id number] JOSEPH: 03/16/24- SUBM DR: Abi Sunshine DO [...] -Serrated hyperplastic polyp in both fragments Specimen: [id number] Received: 03/16/24 Status: BLUE Neal Num: [id number] Spec Type: Surgical Subm Dr: Abi Sunshine, DO Tissues: A Colon Biopsy (RT RANDOM COLON BX) B Colon Biopsy (RANDOM LT) C Colon Biopsy (TRANSV POLYPS) D Colon Biopsy (RECTAL POLYP) Procedures: HE/Dagoberto, Gross/Micro L4/4 Patient: Rachel Mcgarry [id number] (Continued) Specimen: [id number] Received: 03/16/24 (Continued) Signed (signature on file) Philomena Grimm MD 03/18/24 1111 Specimen: [id number] Received: 03/16/24 Status: BLUE Neal Num: [id number] Spec Type: Surgical Subm Dr: Abi Sunshine DO Tissues: A Colon Biopsy (RT RANDOM COLON BX) B Colon Biopsy (RANDOM LT) C Colon Biopsy (TRANSV POLYPS) D Colon Biopsy (RECTAL POLYP) Procedures: HE/Dagboerto, Gross/Micro L4/4 Patient: Rachel Mcgarry [id number] (Continued) Specimen: [id number] Received: 03/16/24 (Continued) Clinical Information Screening, diarrhea. [...] cm, entirely submitted in D1. CPT Codes 92998V3 Specimen: [id number] Received: 03/16/24 Status: BLUE Neal Num: [id number] Spec Type: Surgical Subm Dr: Abi Sunshine DO Tissues: A Colon Biopsy (RT RANDOM COLON BX) B Colon Biopsy (RANDOM LT) C Colon Biopsy (TRANSV POLYPS) D Colon Biopsy (RECTAL POLYP) Procedures: GAVIN/Dagoberto, Gross/Micro L4/4 Patient: Rachel Mcgarry [id number] (Continued) Signed (signature on file) Philomena Grimm MD 03/18/24 1111 Normal [facility] XR lumbar spine AP/LAT/FLX/E XTon 03-02-2024 XR lumbar spine AP/LAT/FLX/EXT [facility] [place] [address] XRay Report Signed Patient: Rachel Mcgarry MR#: [id number] 1 : 1980 Acct:[id number] Age/Sex: 44 / F ADM Date: 03/02/24 Loc: Room: Type: [facility] Attending Dr: Kyler Miramontes MD Copies to: [...] Yeboah Jr., D.OPanchito03/02/2024 2:52 PM Dictation Location: [place] [address] Transcribed By: [facility] 03/02/24 2735 Dictated By: Andrés Yeboah Jr, DO 03/02/24 1445 Signed By: 03/02/24 1452 Normal [facility] US breast RT limitedon 02-08 US breast RT limited [facility] [place] [address] [place] [address] Ultrasound Report Signed Patient: Rachel Mcgarry MR#: [id number] 1 : 1980 Acct:[id number] Age/Sex: 44 / F ADM Date: 02/09/24 Loc: [facility] Room: Type: [facility] Attending Dr: Ajit DEJESUS Ordering Provider: OLEG [...] Dar Messina M.D.02/09/2024 9:33 AM Dictation Location: [facility] Tech: Janet Krause Transcribed By: ROSA MARIA 02/09/24932 Dictated By: Dar Messina II, MD 02/09/2429 Signed By: 02/09/24932 Normal [facility] MM screening mammo BI w/CADo n 02-04-2024 MM screening mammo BI w/CAD [facility] [place] [address] [place] [address] Mammography Report Signed Patient: Rachel Mcgarry MR#: [id number] 1 : 1980 Acct:[id number] Age/Sex: 44 / F ADM Date: 02/04/24 Loc: [place] Room: Type: [facility] Attending Dr: Ajit DEJESUS Copies to: OLEG [...] Eda Yañez M.D.02/04/2024 2:28 PM Dictation Location: [facility] Transcribed By: ROSA MARIA 02/04/24 1428 Dictated By: Eda Yañez MD 02/04/24 1418 Signed By: 02/04/24 1428 Normal [facility] US renal BIon 01-21-2024 US renal BI [facility] [place] [address] [place] [address] Ultrasound Report Signed Patient: Rachel Mcgarry MR#: [id number] 1 : 1980 Acct:[id number] Age/Sex: 44 / F ADM Date: 01/21/24 Loc: Room: Type: [facility] Attending Dr: Ajit DEJESUS Ordering Provider: OLEG [...] Yeboah Jr., Lei01/21/2024 2:50 PM Dictation Location: [place] [address] Tech: Mariza Garnett Transcribed By: [facility] 01/21/24 1450 Dictated By: Andrés Yeboah Jr, DO 01/21/24 1450 Signed By: 01/21/24 1450 Normal [facility] Alanine aminotransferase [En zymatic activity/volume] in Serum or PlasmaOrdered By: Ajit Pettit on 01-18-2024 ALT [Catalytic activity/Vol] 8 U/L Normal 7-52 [facility] Comment on above: Order Comment: Reaso n for Exam Type 2 diabetes mellitus without complication, without long- Performed By: #### F E and TIBC, LIPID, CBC, CMP, LDLD ####[facility] [address] [place] [address] [place] Performed By: #### C UBLD, LACTIC #### [facility] [address] [place] [address] Albumin [Mass/volume] in Ser um or Plasma by Bromocresol green (BCG) dye binding methoOrdered By: Ajit Pettit on 01-18-2024 Albumin BCG dye [Mass/Vol] 4.1 g/dL 3.5-5.7 [facility] Alkaline phosphatase [Enzyma tic activity/volume] in Serum or PlasmaOrdered By: Ajit Pettit on 01-18-2024 ALP [Catalytic activity/Vol] 58 U/L Normal 34-104 [facility] Comment on above: Order Comment: Reaso n for Exam Type 2 diabetes mellitus without complication, without long- Performed By: #### F E and TIBC, LIPID, CBC, CMP, LDLD ####[facility] [place] [address] [place] Performed By: #### C UBLD, LACTIC #### [facility] [address] [place] [address] Aspartate aminotransferase [ Enzymatic activity/volume] in Serum or PlasmaOrdered By: Ajit Pettit on 01-18-2024 AST [Catalytic activity/Vol] 9 U/L Low 13-39 [facility] Comment on above: Order Comment: Reaso n for Exam Type 2 diabetes mellitus without complication, without long- Performed By: #### F E and TIBC, LIPID, CBC, CMP, LDLD ####[facility] [address] [place] [address] [place] Performed By: #### C UBLD, LACTIC #### [facility] [address] [place] [address] [place] Automated basophil %Ordered By: Ajit Pettit on 01-18-2024 Basophils/100 WBC (Bld) 1.2 % Normal . [facility] Comment on above: Order Comment: Reaso n for Exam Type 2 diabetes mellitus without complication, without long- Performed By: #### F E and TIBC, LIPID, CBC, CMP, LDLD ####[facility] [address] [place] [address] [place] Performed By: #### C UBLD, LACTIC #### [facility] [address] [place] [address] [place] Automated basophil countOrde red By: Ajit Pettit on 01-18-2024 Basophils (Bld) [#/Vol] 0.2 10*3/uL Normal 0.0-0.2 [facility] Comment on above: Order Comment: Reaso n for Exam Type 2 diabetes mellitus without complication, without long- Result Comment: PERF ORMED BY: [place] [address] PATHOLOGIST RECORD CENTER COORDINATOR RIDGE HUERTA M.D. Performed By: #### F E and TIBC, LIPID, CBC, CMP, LDLD ####[address] Performed By: #### C UBLD, LACTIC #### [address] Automated blood monocyte cou ntOrdered By: Ajit Pettit on 01-18-2024 Monocytes (Bld) [#/Vol] 0.9 10*3/uL High 0.0-0.8 [facility] Comment on above: Order Comment: Reaso n for Exam Type 2 diabetes mellitus without complication, without long- Performed By: #### F E and TIBC, LIPID, CBC, CMP, LDLD ####[address] Performed By: #### C UBLD, LACTIC #### [address] Automated eosinophil %Ordere d By: Ajit Pettit on 01-18-2024 Eosinophils/100 WBC (Bld) 0.9 % Normal . [facility] Comment on above: Order Comment: Reaso n for Exam Type 2 diabetes mellitus without complication, without long- Performed By: #### F E and TIBC, LIPID, CBC, CMP, LDLD ####[address] Performed By: #### C UBLD, LACTIC #### [address] Automated eosinophil countOr dered By: Ajit Pettit on 01-18-2024 Eosinophils (Bld) [#/Vol] 0.1 10*3/uL Normal 0.0-0.45 [facility] Comment on above: Order Comment: Reaso n for Exam Type 2 diabetes mellitus without complication, without long- Performed By: #### F E and TIBC, LIPID, CBC, CMP, LDLD ####[address] Performed By: #### C UBLD, LACTIC #### [address] Automated monocyte %Ordered By: Ajit Pettit on 01-18-2024 Monocytes/100 WBC (Bld) 7.1 % Normal . [facility] Comment on above: Order Comment: Reaso n for Exam Type 2 diabetes mellitus without complication, without long- Performed By: #### F E and TIBC, LIPID, CBC, CMP, LDLD ####[address] Performed By: #### C UBLD, LACTIC #### [address] Automated neutrophil %Ordere d By: Ajit Pettit on 01-18-2024 Neutrophils/100 WBC (Bld) 60.9 % Normal . [facility] Comment on above: Order Comment: Reaso n for Exam Type 2 diabetes mellitus without complication, without long- Performed By: #### F E and TIBC, LIPID, CBC, CMP, LDLD ####[address] Performed By: #### C UBLD, LACTIC #### [address] Bilirubin.total [Mass/volume ] in Serum or PlasmaOrdered By: Ajit Pettit on 01-18-2024 Bilirubin [Mass/Vol] 0.4 mg/dL Normal 0.3-1.0 [facility] Comment on above: Order Comment: Reaso n for Exam Type 2 diabetes mellitus without complication, without long- Performed By: #### F E and TIBC, LIPID, CBC, CMP, LDLD ####[address] Performed By: #### C UBLD, LACTIC #### [place] [address] [place] Calcium [Mass/volume] in Ser um or PlasmaOrdered By: Ajit Spasic on 01-18-2024 Calcium [Mass/Vol] 9.5 mg/dL Normal 8.6-10.3 [facility] Comment on above: Order Comment: Reaso n for Exam Type 2 diabetes mellitus without complication, without long- Performed By: #### F E and TIBC, LIPID, CBC, CMP, LDLD ####[place] [address] [place] Performed By: #### C UBLD, LACTIC #### [address] Carbon dioxide, total [Moles /volume] in Serum or PlasmaOrdered By: Ajit Spasic on 01-18-2024 CO2 [Moles/Vol] 22.0 mmol/L Normal 21.0-31.0 [facility] Comment on above: Order Comment: Reaso n for Exam Type 2 diabetes mellitus without complication, without long- Performed By: #### F E and TIBC, LIPID, CBC, CMP, LDLD ####[address] Performed By: #### C UBLD, LACTIC #### [place] [address] [place] Chloride [Moles/volume] in S alissa or PlasmaOrdered By: Ajit Spasic on 01-18-2024 Chloride [Moles/Vol] 103 mmol/L Normal 98-107 [facility] Comment on above: Order Comment: Reaso n for Exam Type 2 diabetes mellitus without complication, without long- Performed By: #### F E and TIBC, LIPID, CBC, CMP, LDLD ####[place] [address] [place] Performed By: #### C UBLD, LACTIC #### [address] [place] [address] [place] Cholesterol [Mass/volume] in Serum or PlasmaOrdered By: Ajit Pettit on 01-18-2024 Cholesterol [Mass/Vol] 188 mg/dL Normal 140-200 [facility] Comment on above: Chol less than [...] E and TIBC, LIPID, CBC, CMP, LDLD ####[facility] Performed By: #### C UBLD, LACTIC #### [facility] [address] [place] [address] Cholesterol in LDL Calc [Mas s/Vol]Ordered By: Ajit Pettit on 01-18-2024 Cholesterol in LDL [Mass/Vol] TNP [facility] Comment on above: Test not performed Cholesterol in LDL [Mass/vol ume] in Serum or PlasmaOrdered By: Ajit Pettit on 01-18-2024 Cholesterol in LDL [Mass/Vol] 97 mg/dL 0-100 [facility] Comment on above: LDL ATP III CLASSIFI CATIONLDL less than 100 mg/dL OptimalLDL 100-129 mg/dL Near or above optimalLDL 130-159 mg/dL Borderline highLDL 160-189 mg/dL HighLDL greater than 189 mg/dL Very high Cholesterol in VLDL Calc [Ma ss/Vol]Ordered By: Ajit Pettit on 01-18-2024 Cholesterol in VLDL [Mass/Vol] 88 mg/dL [facility] Complete Blood Count Auto Di ffon 01-18-2024 Mean Corpuscular HGB Conc 33.1 g/dL Normal 32.0-35.0 [facility] Comment on above: Order Comment: Reaso n for Exam Type 2 diabetes mellitus without complication, without long- Performed By: #### F E and TIBC, LIPID, CBC, CMP, LDLD ####[address] Performed By: #### C UBLD, LACTIC #### [facility] [address] [place] [address] NRBC% 0.2 /100{WBC} Normal 0-0.5 [facility] Comment on above: Order Comment: Reaso n for Exam Type 2 diabetes mellitus without complication, without long- Performed By: #### F E and TIBC, LIPID, CBC, CMP, LDLD ####[address] Performed By: #### C UBLD, LACTIC #### [address] Comprehensive Metabolic Pane rosa 01-18-2024 Albumin [Mass/Vol] 4.1 g/dL Normal 3.5-5.7 [facility] Comment on above: Order Comment: Reaso n for Exam Type 2 diabetes mellitus without complication, without long- Performed By: #### F E and TIBC, LIPID, CBC, CMP, LDLD ####[address] Performed By: #### C UBLD, LACTIC #### [address] GFR/1.73 sq M.predicted MDRD (S/P/Bld) [Vol rate/Area] mL/min/{1.73_m2} Normal [facility] Comment on above: Order Comment: Reaso n for Exam Type 2 diabetes mellitus without complication, without long- Performed By: #### F E and TIBC, LIPID, CBC, CMP, LDLD ####[address] Performed By: #### C UBLD, LACTIC #### [address] Creatinine [Mass/volume] in Serum or PlasmaOrdered By: Ajit Pettit on 01-18-2024 Creatinine [Mass/Vol] 0.42 mg/dL Low 0.60-1.20 [facility] Comment on above: Order Comment: Reaso n for Exam Type 2 diabetes mellitus without complication, without long- Performed By: #### F E and TIBC, LIPID, CBC, CMP, LDLD ####[address] Performed By: #### C UBLD, LACTIC #### [address] Erythrocyte distribution wid th [Ratio] by Automated countOrdered By: Ajit Pettit on 01-18-2024 Erythrocyte distribution width (RBC) [Ratio] 13.4 % Normal 11.9-15.3 [facility] Comment on above: Order Comment: Reaso n for Exam Type 2 diabetes mellitus without complication, without long- Performed By: #### F E and TIBC, LIPID, CBC, CMP, LDLD ####[address] Performed By: #### C UBLD, LACTIC #### [address] Erythrocytes [#/volume] in B lood by Automated countOrdered By: Ajit Pettit on 01-18-2024 RBC (Bld) [#/Vol] 4.67 10*6/uL Normal 3.60-5.00 [facility] Comment on above: Order Comment: Reaso n for Exam Type 2 diabetes mellitus without complication, without long- Performed By: #### F E and TIBC, LIPID, CBC, CMP, LDLD ####[address] Performed By: #### C UBLD, LACTIC #### [address] Glucose [Mass/volume] in Ser um or PlasmaOrdered By: Ajit Pettit on 01-18-2024 Glucose [Mass/Vol] 107 mg/dL High 70-100 [facility] Comment on above: ADA recommended refe rence rangeRandom Glucose Reference Range is dependent on time and content of last meal. Glucose of more than 200 mg/dL in a nonstressed, ambulatory subject supports the diagnosis of Diabetes Mellitus. Order Comment: Reaso n for Exam Type 2 diabetes mellitus without complication, without long- Result Comment: [place] Glucose Reference Range is dependent on time and content of last meal. Glucose of more than 200 mg/dL in a nonstressed, ambulatory subject supports the diagnosis of Diabetes Mellitus. ADA recommended reference range Performed By: #### F E and TIBC, LIPID, CBC, CMP, LDLD ####[address] Performed By: #### C UBLD, LACTIC #### [facility] [address] Hematocrit [Volume Fraction] of Blood by Automated countOrdered By: Ajit Pettit on 01-18-2024 Hematocrit (Bld) [Volume fraction] 40.8 % Normal 34.0-46.4 [facility] Comment on above: Order Comment: Reaso n for Exam Type 2 diabetes mellitus without complication, without long- Performed By: #### F E and TIBC, LIPID, CBC, CMP, LDLD ####[address] Performed By: #### C UBLD, LACTIC #### [address] Hemoglobin [Mass/volume] in BloodOrdered By: Ajit Pettit on 01-18-2024 Hemoglobin (Bld) [Mass/Vol] 13.5 g/dL Normal 11.8-15.4 [facility] Comment on above: Order Comment: Reaso n for Exam Type 2 diabetes mellitus without complication, without long- Performed By: #### F E and TIBC, LIPID, CBC, CMP, LDLD ####[place] [address] [place] Performed By: #### C UBLD, LACTIC #### [place] [address] [place] Iron [Mass/volume] in Serum or PlasmaOrdered By: Ajit Pettit on 01-18-2024 Iron [Mass/Vol] 89 ug/dL Normal 50-212 [facility] Comment on above: Order Comment: Reaso n for Exam Type 2 diabetes mellitus without complication, without long- Performed By: #### F E and TIBC, LIPID, CBC, CMP, LDLD ####[facility] [id number] [place] [address] [place] Performed By: #### C UBLD, LACTIC #### [facility] [address] [place] [address] [place] Iron and TIBC Profileon 01-02 % Iron Saturation 23.8 % Normal 20-50 [facility] Comment on above: Order Comment: Reaso n for Exam Type 2 diabetes mellitus without complication, without long- Performed By: #### F E and TIBC, LIPID, CBC, CMP, LDLD ####[facility] [id number] Performed By: #### C UBLD, LACTIC #### [facility] [address] Total Iron Binding Capacity 374 ug/dL Normal 255-450 [facility] Comment on above: Order Comment: Reaso n for Exam Type 2 diabetes mellitus without complication, without long- Performed By: #### F E and TIBC, LIPID, CBC, CMP, LDLD ####[facility] [id number] [place] [address] Performed By: #### C UBLD, LACTIC #### [facility] [address] [id number] [facility] Iron binding capacity [Mass/ volume] in Serum or PlasmaOrdered By: Ajit Spasic on 01-18-2024 Iron binding capacity [Mass/Vol] 374 ug/dL 255-450 [facility] Iron saturation [Mass Fracti on] in Serum or PlasmaOrdered By: Ajit Spasic on 01-18-2024 Iron saturation [Mass fraction] 23.8 % 20-50 [facility] LDL Cholesterol Measuredon 0 01-18-2024 LDL Cholesterol Measured 97 mg/dL Normal 0-100 [facility] Comment on above: Order Comment: Reaso n for Exam Type 2 diabetes mellitus without complication, without long- Result Comment: LDL ATP III CLASSIFICATION LDL less than 100 mg/dL Optimal LDL 100-129 mg/dL Near or above optimal LDL 130-159 mg/dL Borderline high LDL 160-189 mg/dL High LDL greater than 189 mg/dL Very high PERFORMED BY: [place] [address] PATHOLOGIST RECORD CENTER COORDINATOR RIDGE HUERTA M.D. Performed By: #### F E and TIBC, LIPID, CBC, CMP, LDLD ####[address] Performed By: #### C UBLD, LACTIC #### [address] Leukocytes [#/volume] correc cherie for nucleated erythrocytes in Blood by Automated counOrdered By: Ajit Pettit on 01-18-2024 WBC corrected for nucl RBC Auto (Bld) [#/Vol] 12.4 10*3/uL High 3.8-11.6 [facility] Leukocytes [#/volume] in Blo od by Automated countOrdered By: Ajit Pettit on 01-18-2024 WBC (Bld) [#/Vol] 12.4 10*3/uL High 3.8-11.6 [facility] Comment on above: Order Comment: Reaso n for Exam Type 2 diabetes mellitus without complication, without long- Performed By: #### F E and TIBC, LIPID, CBC, CMP, LDLD ####[address] Performed By: #### C UBLD, LACTIC #### [address] Lipid Panelon 01-18-2024 LDL Cholesterol,Calculated Not performed Normal 0-100 [facility] Comment on above: Order Comment: Reaso n for Exam Type 2 diabetes mellitus without complication, without long- Performed By: #### F E and TIBC, LIPID, CBC, CMP, LDLD ####[address] Performed By: #### C UBLD, LACTIC #### [address] Triglyceride w/Reflex 441 mg/dL High 0-149 [facility] Comment on above: Order Comment: [...] E and TIBC, LIPID, CBC, CMP, LDLD ####[address] Performed By: #### C UBLD, LACTIC #### [address] VLDL CHOLESTEROL 88 mg/dL Normal [facility] Comment on above: Order Comment: Reaso n for Exam Type 2 diabetes mellitus without complication, without long- Performed By: #### F E and TIBC, LIPID, CBC, CMP, LDLD ####[address] Performed By: #### C UBLD, LACTIC #### [address] Lymphocytes [#/volume] in Bl ood by Automated countOrdered By: Ajit Pettit on 01-18-2024 Lymphocytes (Bld) [#/Vol] 3.7 10*3/uL Normal 1.00-4.8 [facility] Comment on above: Order Comment: Reaso n for Exam Type 2 diabetes mellitus without complication, without long- Performed By: #### F E and TIBC, LIPID, CBC, CMP, LDLD ####[address] Performed By: #### C UBLD, LACTIC #### [place] [address] [place] Lymphocytes/100 leukocytes i n Blood by Automated countOrdered By: Ajit Pettit on 01-18-2024 Lymphocytes/100 WBC (Bld) 29.9 % Normal . [facility] Comment on above: Order Comment: Reaso n for Exam Type 2 diabetes mellitus without complication, without long- Performed By: #### F E and TIBC, LIPID, CBC, CMP, LDLD ####[address] Performed By: #### C UBLD, LACTIC #### [address] MCH [Entitic mass] by Automa cherie countOrdered By: Ajit Pettit on 01-18-2024 MCH (RBC) [Entitic mass] 28.9 pg Normal 24.7-34.3 [facility] Comment on above: Order Comment: Reaso n for Exam Type 2 diabetes mellitus without complication, without long- Performed By: #### F E and TIBC, LIPID, CBC, CMP, LDLD ####[address] Performed By: #### C UBLD, LACTIC #### [address] MCHC Auto (RBC) [Mass/Vol]Or dered By: Ajit Pettit on 01-18-2024 MCHC (RBC) [Mass/Vol] 33.1 g/dL 32.0-35.0 [facility] MCV [Entitic volume] by Auto mated countOrdered By: Ajit Pettit on 01-18-2024 MCV (RBC) [Entitic vol] 87.3 fL Normal 80-100 [facility] Comment on above: Order Comment: Reaso n for Exam Type 2 diabetes mellitus without complication, without long- Performed By: #### F E and TIBC, LIPID, CBC, CMP, LDLD ####[address] Performed By: #### C UBLD, LACTIC #### [address] Microalbumin [Mass/volume] i n UrineOrdered By: Ajit Pettit on 01-18-2024 Albumin DL <= 20 mg/L (U) [Mass/Vol] 0.8 mg/dL Normal 0.0-1.8 [facility] Comment on above: Order Comment: Reaso n for Exam Type 2 diabetes mellitus without complication, without long- Result Comment: PERF ORMED BY: [place] [address] PATHOLOGIST RECORD CENTER COORDINATOR RIDGE HUERTA M.D. Performed By: #### C UBLD, LACTIC #### [facility] [address] [place] [address] Neutrophils [#/volume] in Bl ood by Automated countOrdered By: Ajit Pettit on 01-18-2024 Neutrophils (Bld) [#/Vol] 7.6 10*3/uL Normal 1.8-7.7 [facility] Comment on above: Order Comment: Reaso n for Exam Type 2 diabetes mellitus without complication, without long- Performed By: #### F E and TIBC, LIPID, CBC, CMP, LDLD ####[facility] [id number] [place] [address] Performed By: #### C UBLD, LACTIC #### [facility] [address] [place] [address] No Panel InformationOrdered By: Ajit Pettit on 01-18-2024 Estimated GFR (CKD-EPI) > 60.0 mL/Min [facility] Creatinine Clearance (Chem N/A [facility] Nucleated erythrocytes [Pres ence] in Blood by Automated countOrdered By: Ajit Pettit on 01-18-2024 Nucleated RBC Auto Ql (Bld) 0.2 /100{WBC} 0-0.5 [facility] Platelet mean volume [Entiti c volume] in Blood by Automated countOrdered By: Ajit Pettit on 01-18-2024 Platelet mean volume (Bld) [Entitic vol] 8.8 fL Normal 6.3-10.7 [facility] Comment on above: Order Comment: Reaso n for Exam Type 2 diabetes mellitus without complication, without long- Performed By: #### F E and TIBC, LIPID, CBC, CMP, LDLD ####[facility] [id number] [place] [address] Performed By: #### C UBLD, LACTIC #### [address] Platelets [#/volume] in Bloo d by Automated countOrdered By: Ajit Pettit on 01-18-2024 Platelets (Bld) [#/Vol] 275 10*3/uL Normal 150-450 [facility] Comment on above: Order Comment: Reaso n for Exam Type 2 diabetes mellitus without complication, without long- Performed By: #### F E and TIBC, LIPID, CBC, CMP, LDLD ####[address] Performed By: #### C UBLD, LACTIC #### [address] Potassium [Moles/volume] in Serum or PlasmaOrdered By: Ajit Pettit on 01-18-2024 Potassium [Moles/Vol] 4.3 mmol/L Normal 3.5-5.1 [facility] Comment on above: Order Comment: Reaso n for Exam Type 2 diabetes mellitus without complication, without long- Performed By: #### F E and TIBC, LIPID, CBC, CMP, LDLD ####[address] Performed By: #### C UBLD, LACTIC #### [address] Protein [Mass/volume] in Ser um or PlasmaOrdered By: Ajit Pettit on 01-18-2024 Protein [Mass/Vol] 6.6 g/dL Normal 6.4-8.9 [facility] Comment on above: Order Comment: Reaso n for Exam Type 2 diabetes mellitus without complication, without long- Performed By: #### F E and TIBC, LIPID, CBC, CMP, LDLD ####[address] Performed By: #### C UBLD, LACTIC #### [address] Serum globulin measurement b y calculation (mass/volume)Ordered By: Ajit Pettit on 01-18-2024 Globulin (S) [Mass/Vol] 2.5 g/dL Normal [facility] Comment on above: Order Comment: Reaso n for Exam Type 2 diabetes mellitus without complication, without long- Performed By: #### F E and TIBC, LIPID, CBC, CMP, LDLD ####[address] Performed By: #### C UBLD, LACTIC #### [facility] [address] Serum or plasma albumin/glob ulin mass ratioOrdered By: Ajit Pettit on 01-18-2024 Albumin/Globulin [Mass ratio] 1.6 {ratio} [facility] Comment on above: Order Comment: Reaso n for Exam Type 2 diabetes mellitus without complication, without long- Performed By: #### F E and TIBC, LIPID, CBC, CMP, LDLD ####[address] Performed By: #### C UBLD, LACTIC #### [facility] [address] [place] [address] Serum or plasma anion gap de terminationOrdered By: Ajit Pettit on 01-18-2024 Anion gap [Moles/Vol] 15.3 mmol/L High 6.0-15.0 [facility] Comment on above: Order Comment: Reaso n for Exam Type 2 diabetes mellitus without complication, without long- Performed By: #### F E and TIBC, LIPID, CBC, CMP, LDLD ####[facility] [id number] [place] [address] Performed By: #### C UBLD, LACTIC #### [facility] [address] [place] [address] Serum or plasma high density lipoprotein (HDL) cholesterol measurementOrdered By: Ajit Pettit on 01-18-2024 Cholesterol in HDL [Mass/Vol] 37 mg/dL Normal 23-92 [facility] Comment on above: HDL CHOL ATP-III CLA [...] E and TIBC, LIPID, CBC, CMP, LDLD ####[address] Performed By: #### C UBLD, LACTIC #### [address] Serum or plasma total choles terol/high density lipoprotein (HDL) cholesterol mass ratOrdered By: Ajit Pettit on 01-18-2024 Cholesterol.total/Suellen sterol in HDL [Mass ratio] 5.1 {ratio} Normal <5.0 [facility] Comment on above: Order Comment: Reaso n for Exam Type 2 diabetes mellitus without complication, without long- Result Comment: PERF ORMED BY: [place] [address] PATHOLOGIST RECORD CENTER COORDINATOR RIDGE HUERTA M.D. Performed By: #### F E and TIBC, LIPID, CBC, CMP, LDLD ####[address] Performed By: #### C UBLD, LACTIC #### [address] Sodium [Moles/volume] in Ser um or PlasmaOrdered By: Ajit Pettit on 01-18-2024 Sodium [Moles/Vol] 136 mmol/L Normal 136-145 [facility] Comment on above: Order Comment: Reaso n for Exam Type 2 diabetes mellitus without complication, without long- Performed By: #### F E and TIBC, LIPID, CBC, CMP, LDLD ####[address] Performed By: #### C UBLD, LACTIC #### [address] Transferrin [Mass/volume] in Serum or PlasmaOrdered By: Ajit Pettit on 01-18-2024 Transferrin [Mass/Vol] 267 mg/dL Normal 203-362 [facility] Comment on above: Order Comment: Reaso n for Exam Type 2 diabetes mellitus without complication, without long- Performed By: #### F E and TIBC, LIPID, CBC, CMP, LDLD ####[facility] [id number] Performed By: #### C UBLD, LACTIC #### [facility] [address] Triglyceride [Mass/volume] i n Serum or PlasmaOrdered By: Ajit Pettit on 01-18-2024 Triglyceride [Mass/Vol] 441 mg/dL High 0-149 [facility] Comment on above: If the triglyceride result [...] Urea nitrogen [Mass/Vol] 10 mg/dL Normal 7-25 [facility] Comment on above: Order Comment: Reaso n for Exam Type 2 diabetes mellitus without complication, without long- Performed By: #### F E and TIBC, LIPID, CBC, CMP, LDLD ####[facility] [id number] Performed By: #### C UBLD, LACTIC #### [facility] [address] Activated partial thrombopla stin time (aPTT) in platelet poor plasma by coagulation aOrdered By: Diego Noble on 10-16-2023 aPTT Coag (PPP) [Time] 28.2 s 25.1-36.5 [facility] Comment on above: A hematocrit value g reater than 55% may lead to inaccurate results in coagulation testing. Patients having hematocrit values >55% require a special collection tube for coagulation studies. Please contact the laboratory at [phone] for redraw instructions. Alanine aminotransferase [En zymatic activity/volume] in Serum or PlasmaOrdered By: Diego Noble on 10-16-2023 ALT [Catalytic activity/Vol] 10 U/L Normal 7-52 [facility] Comment on above: Performed By: #### C UBLD, LACTIC #### [facility] [address] [place] [address] [place] Albumin [Mass/volume] in Ser um or Plasma by Bromocresol green (BCG) dye binding methoOrdered By: Diego Noble on 10-16-2023 Albumin BCG dye [Mass/Vol] 3.7 g/dL 3.5-5.7 [facility] Alkaline phosphatase [Enzyma tic activity/volume] in Serum or PlasmaOrdered By: Diego Noble on 10-16-2023 ALP [Catalytic activity/Vol] 84 U/L Normal 34-104 [facility] Comment on above: Performed By: #### C UBLD, LACTIC #### [address] Aspartate aminotransferase [ Enzymatic activity/volume] in Serum or PlasmaOrdered By: Diego Noble on 10-16-2023 AST [Catalytic activity/Vol] 14 U/L Normal 13-39 [facility] Comment on above: Performed By: #### C UBLD, LACTIC #### [address] Automated basophil %Ordered By: Diego Noble on 10-16-2023 Basophils/100 WBC (Bld) 2.6 % Normal . [facility] Comment on above: Performed By: #### C UBLD, LACTIC #### [address] Automated basophil countOrde red By: Diego Noble on 10-16-2023 Basophils (Bld) [#/Vol] 0.4 10*3/uL High 0.0-0.2 [facility] Comment on above: Result Comment: PERF ORMED BY: [place] [address] PATHOLOGIST RECORD CENTER COORDINATOR RIDGE HUERTA M.D. Performed By: #### C UBLD, LACTIC #### [facility] [address] Automated blood monocyte cou ntOrdered By: Diego Noble on 10-16-2023 Monocytes (Bld) [#/Vol] 0.9 10*3/uL High 0.0-0.8 [facility] Comment on above: Performed By: #### C UBLD, LACTIC #### [facility] [address] Automated eosinophil %Ordere d By: Diego Noble on 10-16-2023 Eosinophils/100 WBC (Bld) 3.3 % Normal . [facility] Comment on above: Performed By: #### C UBLD, LACTIC #### [address] Automated eosinophil countOr dered By: Diego Noble on 10-16-2023 Eosinophils (Bld) [#/Vol] 0.5 10*3/uL High 0.0-0.45 [facility] Comment on above: Performed By: #### C UBLD, LACTIC #### [address] Automated monocyte %Ordered By: Diego Noble on 10-16-2023 Monocytes/100 WBC (Bld) 6.3 % Normal . [facility] Comment on above: Performed By: #### C UBLD, LACTIC #### [facility] [address] Automated neutrophil %Ordere d By: Diego Noble on 10-16-2023 Neutrophils/100 WBC (Bld) 53.8 % Normal . [facility] Comment on above: Performed By: #### C UBLD, LACTIC #### [address] Bilirubin.total [Mass/volume ] in Serum or PlasmaOrdered By: Diego Noble on 10-16-2023 Bilirubin [Mass/Vol] 0.2 mg/dL Low 0.3-1.0 [facility] Comment on above: Performed By: #### C UBLD, LACTIC #### [address] Blood Cultureon 10-16-2023 Bacteria identified Cx Nom (Bld) NO GROWTH 5 DAYS PERFORMED BY: [place] [address] PATHOLOGIST RECORD CENTER COORDINATOR RIDGE HUERTA M.D. Normal [facility] Comment on above: Performed By: #### C UBLD, LACTIC #### [address] Bacteria identified Cx Nom (Bld) NO GROWTH 5 DAYS PERFORMED BY: [place] [address] PATHOLOGIST RECORD CENTER COORDINATOR RIDGE HUERTA M.D. Normal [facility] Comment on above: Performed By: #### C UBLD, LACTIC #### [address] Calcium [Mass/volume] in Ser um or PlasmaOrdered By: Diego Noble on 10-16-2023 Calcium [Mass/Vol] 9.1 mg/dL Normal 8.6-10.3 [facility] Comment on above: Performed By: #### C UBLD, LACTIC #### [address] Carbon dioxide, total [Moles /volume] in Serum or PlasmaOrdered By: Diego Noble on 10-16-2023 CO2 [Moles/Vol] 25.9 mmol/L Normal 21.0-31.0 [facility] Comment on above: Performed By: #### C UBLD, LACTIC #### [place] [address] [place] Chloride [Moles/volume] in S alissa or PlasmaOrdered By: Diego Noble on 10-16-2023 Chloride [Moles/Vol] 101 mmol/L Normal 98-107 [facility] Comment on above: Performed By: #### C UBLD, LACTIC #### [address] Complete Blood Count Auto Di ffon 10-16-2023 Mean Corpuscular HGB Conc 34.1 g/dL Normal 32.0-35.0 [facility] Comment on above: Performed By: #### C UBLD, LACTIC #### [address] Monocytes/100 WBC (Bld) 20.62 % High 0.00-20.00 [facility] Comment on above: Result Comment: For adults in ED, MDW > 20.0 may be associated with a higher risk of sepsis during the first 12 hrs of hospital admission Performed By: #### C UBLD, LACTIC #### [address] NRBC% 0.1 /100{WBC} Normal 0-0.5 [facility] Comment on above: Performed By: #### C UBLD, LACTIC #### [address] Comprehensive Metabolic Pane rosa 10-16-2023 Albumin [Mass/Vol] 3.7 g/dL Normal 3.5-5.7 [facility] Comment on above: Performed By: #### C UBLD, LACTIC #### [place] [address] [place] Creatinine Clr Calc Pharmacy 134.19 Normal [facility] Comment on above: Result Comment: PERF ORMED BY: [place] [address] PATHOLOGIST RECORD CENTER COORDINATOR RIDGE HUERTA M.D. Performed By: #### C UBLD, LACTIC #### [address] GFR/1.73 sq M.predicted MDRD (S/P/Bld) [Vol rate/Area] mL/min/{1.73_m2} Normal [facility] Comment on above: Performed By: #### C UBLD, LACTIC #### [place] [address] [place] Creatinine [Mass/volume] in Serum or PlasmaOrdered By: Diego Noble on 10-16-2023 Creatinine [Mass/Vol] 0.55 mg/dL Low 0.60-1.20 [facility] Comment on above: Performed By: #### C UBLD, LACTIC #### [facility] [address] Erythrocyte distribution wid th [Ratio] by Automated countOrdered By: Diego Noble on 10-16-2023 Erythrocyte distribution width (RBC) [Ratio] 13.0 % Normal 11.9-15.3 [facility] Comment on above: Performed By: #### C UBLD, LACTIC #### [facility] [address] Erythrocytes [#/volume] in B lood by Automated countOrdered By: Diego Noble on 10-16-2023 RBC (Bld) [#/Vol] 3.84 10*6/uL Normal 3.60-5.00 [facility] Comment on above: Performed By: #### C UBLD, LACTIC #### [facility] [address] Glucose [Mass/volume] in Ser um or PlasmaOrdered By: Diego Noble on 10-16-2023 Glucose [Mass/Vol] 197 mg/dL High 70-100 [facility] Comment on above: ADA recommended refe rence rangeRandom Glucose Reference Range is dependent on time and content of last meal. Glucose of more than 200 mg/dL in a nonstressed, ambulatory subject supports the diagnosis of Diabetes Mellitus. Result Comment: Regina om Glucose Reference Range is dependent on time and content of last meal. Glucose of more than 200 mg/dL in a nonstressed, ambulatory subject supports the diagnosis of Diabetes Mellitus. ADA recommended reference range Performed By: #### C UBLD, LACTIC #### [facility] [address] Hematocrit [Volume Fraction] of Blood by Automated countOrdered By: Diego Noble on 10-16-2023 Hematocrit (Bld) [Volume fraction] 34.0 % Normal 34.0-46.4 [facility] Comment on above: Performed By: #### C UBLD, LACTIC #### [facility] [address] Hemoglobin [Mass/volume] in BloodOrdered By: Diego Noble on 10-16-2023 Hemoglobin (Bld) [Mass/Vol] 11.6 g/dL Low 11.8-15.4 [facility] Comment on above: Performed By: #### C UBLD, LACTIC #### [address] INR in Platelet poor plasma by Coagulation assayOrdered By: Diego Noble on 10-16-2023 INR Coag (PPP) [Relative time] 0.9 {INR} Normal [facility] Comment on above: INR Therapeutic Rang e [...] Performed By: #### C UBLD, LACTIC #### [address] Lactate [Moles/volume] in Se rum or PlasmaOrdered By: Diego Noble on 10-16-2023 Lactate [Moles/Vol] 2.1 mmol/L Off scale high 0.5-2.2 [facility] Comment on above: Critical Result : Ca lled to and read back by: MACO BECK at: 10/16/2023 12:33:20 by:ECTOR Result Comment: Crit ical Result : Called to and read back by: MACO BECK at: 10/16/2023 12:33:20 by:ECTOR PERFORMED BY: [place] [address] PATHOLOGIST RECORD CENTER COORDINATOR RIDGE HUERTA M.D. Performed By: #### C UBLD, LACTIC #### [address] Leukocytes [#/volume] correc cherie for nucleated erythrocytes in Blood by Automated counOrdered By: Diego Noble on 10-16-2023 WBC corrected for nucl RBC Auto (Bld) [#/Vol] 14.3 10*3/uL 3.8-11.6 [facility] Leukocytes [#/volume] in Blo od by Automated countOrdered By: Diego Noble on 10-16-2023 WBC (Bld) [#/Vol] 14.3 10*3/uL High 3.8-11.6 [facility] Comment on above: Performed By: #### C UBLD, LACTIC #### [address] Lymphocytes [#/volume] in Bl ood by Automated countOrdered By: Diego Noble on 10-16-2023 Lymphocytes (Bld) [#/Vol] 4.9 10*3/uL High 1.00-4.8 [facility] Comment on above: Performed By: #### C UBLD, LACTIC #### [address] Lymphocytes/100 leukocytes i n Blood by Automated countOrdered By: Diego Noble on 10-16-2023 Lymphocytes/100 WBC (Bld) 34.0 % Normal . [facility] Comment on above: Performed By: #### C UBLD, LACTIC #### [address] MCH [Entitic mass] by Automa cherie countOrdered By: Diego Noble on 10-16-2023 MCH (RBC) [Entitic mass] 30.3 pg Normal 24.7-34.3 [facility] Comment on above: Performed By: #### C UBLD, LACTIC #### [address] MCHC Auto (RBC) [Mass/Vol]Or dered By: Diego Noble on 10-16-2023 MCHC (RBC) [Mass/Vol] 34.1 g/dL 32.0-35.0 [facility] MCV [Entitic volume] by Auto mated countOrdered By: Diego Noble on 10-16-2023 MCV (RBC) [Entitic vol] 88.7 fL Normal 80-100 [facility] Comment on above: Performed By: #### C UBLD, LACTIC #### [facility] [address] Monocyte distribution width [Entitic volume] in Blood by AutomatedOrdered By: Diego Noble on 10-16-2023 Monocyte distribution width Auto (Bld) [Entitic vol] 20.62 % 0.00-20.00 [facility] Comment on above: For adults in ED, MD W > 20.0 may be associated with a higher risk of sepsis during the first 12 hrs of hospital admission Neutrophils [#/volume] in Bl ood by Automated countOrdered By: Diego Noble on 10-16-2023 Neutrophils (Bld) [#/Vol] 7.7 10*3/uL Normal 1.8-7.7 [facility] Comment on above: Performed By: #### C UBLD, LACTIC #### [facility] [address] No Panel InformationOrdered By: Diego Noble on 10-16-2023 Estimated GFR (CKD-EPI) > 60.0 mL/Min [facility] Creatinine Clearance (Chem 134.19 [facility] Nucleated erythrocytes [Pres ence] in Blood by Automated countOrdered By: Diego Noble on 10-16-2023 Nucleated RBC Auto Ql (Bld) 0.1 /100{WBC} 0-0.5 [facility] Partial Thromboplastin Timeo n 10-16-2023 aPTT Coag (Bld) [Time] 28.2 s Normal 25.1-36.5 [facility] Comment on above: Result Comment: A he matocrit value greater than 55% may lead to inaccurate results in coagulation testing. Patients having hematocrit values >55% require a special collection tube for coagulation studies. Please contact the laboratory at [phone] for redraw instructions. PERFORMED BY: [facility] [address] [place] [address] PATHOLOGIST RECORD CENTER COORDINATOR RIDGE HUERTA M.D. Performed By: #### C UBLD, LACTIC #### [facility] [address] [place] [address] [place] Platelet mean volume [Entiti c volume] in Blood by Automated countOrdered By: Diego Noble on 10-16-2023 Platelet mean volume (Bld) [Entitic vol] 6.7 fL Normal 6.3-10.7 [facility] Comment on above: Performed By: #### C UBLD, LACTIC #### [facility] [address] [place] [address] [place] Platelets [#/volume] in Bloo d by Automated countOrdered By: Diego Noble on 10-16-2023 Platelets (Bld) [#/Vol] 454 10*3/uL High 150-450 [facility] Comment on above: Performed By: #### C UBLD, LACTIC #### [place] [address] [place] Potassium [Moles/volume] in Serum or PlasmaOrdered By: Diego Noble on 10-16-2023 Potassium [Moles/Vol] 4.3 mmol/L Normal 3.5-5.1 [facility] Comment on above: Performed By: #### C UBLD, LACTIC #### [place] [address] [place] Protein [Mass/volume] in Ser um or PlasmaOrdered By: Diego Noble on 10-16-2023 Protein [Mass/Vol] 6.3 g/dL Low 6.4-8.9 [facility] Comment on above: Performed By: #### C UBLD, LACTIC #### [place] [address] [place] Prothrombin time (PT)Ordered By: Diego Noble on 10-16-2023 PT Coag (PPP) [Time] 9.9 s Normal 9.0-12.9 [facility] Comment on above: A hematocrit value g reater than 55% may lead to inaccurate results in coagulation testing. Patients having hematocrit values >55% require a special collection tube for coagulation studies. Please contact the laboratory at [phone] for redraw instructions. Result Comment: A he matocrit value greater than 55% may lead to inaccurate results in coagulation testing. Patients having hematocrit values >55% require a special collection tube for coagulation studies. Please contact the laboratory at [phone] for redraw instructions. Performed By: #### C UBLD, LACTIC #### [address] Serum globulin measurement b y calculation (mass/volume)Ordered By: Diego Noble on 10-16-2023 Globulin (S) [Mass/Vol] 2.6 g/dL Normal [facility] Comment on above: Performed By: #### C UBLD, LACTIC #### [address] Serum or plasma albumin/glob ulin mass ratioOrdered By: Diego Noble on 10-16-2023 Albumin/Globulin [Mass ratio] 1.4 {ratio} Normal [facility] Comment on above: Performed By: #### C UBLD, LACTIC #### [address] Serum or plasma anion gap de terminationOrdered By: Diego Noble on 10-16-2023 Anion gap [Moles/Vol] 14.4 mmol/L Normal 6.0-15.0 [facility] Comment on above: Performed By: #### C UBLD, LACTIC #### [address] Sodium [Moles/volume] in Ser um or PlasmaOrdered By: Diego Noble on 10-16-2023 Sodium [Moles/Vol] 137 mmol/L Normal 136-145 [facility] Comment on above: Performed By: #### C UBLD, LACTIC #### [address] Urea nitrogen [Mass/volume] in Serum or PlasmaOrdered By: Diego Noble on 10-16-2023 Urea nitrogen [Mass/Vol] 12 mg/dL Normal 7-25 [facility] Comment on above: Performed By: #### C UBLD, LACTIC #### [address] Automated basophil %Ordered By: Ilene Lopez on 10-09-2023 Basophils/100 WBC (Bld) 0.4 % Normal . [facility] Comment on above: Performed By: #### C UBLD, LACTIC #### [address] Automated basophil countOrde red By: Ilene Lopez on 10-09-2023 Basophils (Bld) [#/Vol] 0.1 10*3/uL Normal 0.0-0.2 [facility] Comment on above: Result Comment: PERF ORMED BY: [place] [address] PATHOLOGIST RECORD CENTER COORDINATOR RIDGE HUERTA M.D. Performed By: #### C UBLD, LACTIC #### [address] Automated blood monocyte cou ntOrdered By: Ilene Lopez on 10-09-2023 Monocytes (Bld) [#/Vol] 1.3 10*3/uL High 0.0-0.8 [facility] Comment on above: Performed By: #### C UBLD, LACTIC #### [address] Automated eosinophil %Ordere d By: Ilene Lopez on 10-09-2023 Eosinophils/100 WBC (Bld) 3.5 % Normal . [facility] Comment on above: Performed By: #### C UBLD, LACTIC #### [address] Automated eosinophil countOr dered By: Ilene Lopez on 10-09-2023 Eosinophils (Bld) [#/Vol] 0.5 10*3/uL High 0.0-0.45 [facility] Comment on above: Performed By: #### C UBLD, LACTIC #### [address] Automated monocyte %Ordered By: Ilene Lopez on 10-09-2023 Monocytes/100 WBC (Bld) 9.5 % Normal . [facility] Comment on above: Performed By: #### C UBLD, LACTIC #### [address] Automated neutrophil %Ordere d By: Ilene Lopez on 10-09-2023 Neutrophils/100 WBC (Bld) 70.1 % Normal . [facility] Comment on above: Performed By: #### C UBLD, LACTIC #### [address] Basic Metabolic Panelon Creatinine Clr Calc Pharmacy 153.15 Normal [facility] Comment on above: Result Comment: PERF ORMED BY: [place] [address] PATHOLOGIST RECORD CENTER COORDINATOR RIDGE HUERTA M.D. Performed By: #### C UBLD, LACTIC #### [address] GFR/1.73 sq M.predicted MDRD (S/P/Bld) [Vol rate/Area] mL/min/{1.73_m2} Normal [facility] Comment on above: Performed By: #### C UBLD, LACTIC #### [address] Calcium [Mass/volume] in Ser um or PlasmaOrdered By: Ilene Lopez on 10-09-2023 Calcium [Mass/Vol] 7.9 mg/dL Low 8.6-10.3 [facility] Comment on above: Performed By: #### C UBLD, LACTIC #### [address] Capillary blood glucose ashwini urement by glucometer (mass/volume)Ordered By: Salazar Cabrera on 10-09-2023 Glucose [Mass/Vol] 299 mg/dL Normal [facility] Comment on above: Random Glucose Refer ence Range is dependent on time and content of last meal. Glucose of more than 200 mg/dL in a nonstressed, ambulatory subject supports the diagnosis of Diabetes Mellitus. Result Comment: [facility] Glucose Reference Range is dependent on time and content of last meal. Glucose of more than 200 mg/dL in a nonstressed, ambulatory subject supports the diagnosis of Diabetes Mellitus. Performed By: #### U HCG #### [address] Carbon dioxide, total [Moles /volume] in Serum or PlasmaOrdered By: Ilene Lopez on 10-09-2023 CO2 [Moles/Vol] 22.6 mmol/L Normal 21.0-31.0 [facility] Comment on above: Performed By: #### C UBLD, LACTIC #### [address] Chloride [Moles/volume] in S alissa or PlasmaOrdered By: Ilene Lopez on 10-09-2023 Chloride [Moles/Vol] 105 mmol/L Normal 98-107 [facility] Comment on above: Performed By: #### C UBLD, LACTIC #### [address] Clostridioides difficile tox in B tcdB gene [Presence] in Stool by NAYELY with probe deteOrdered By: BONG Velez on 10-09-2023 C. difficile toxin B tcdB gene NAYELY+probe Ql (Stl) Positive Negative [facility] Comment on above: Results calledat 161 9 on 10/09/23 Testing performed by RT-PCR Clostridium Difficileon Clostridium Difficile Positive Normal Negative [facility] Comment on above: Order Comment: > or = to 3 loose/watery stools in the last 24 HRS? Y Is patient on promotility agents or tube feeding? N Result Comment: Resu lts called at 1619 on 10/09/23 Testing performed by RT-PCR PERFORMED BY: [place] [address] PATHOLOGIST RECORD CENTER COORDINATOR RIDGE HUERTA M.D. Performed By: #### C UBLD, LACTIC #### [address] Complete Blood Count Auto Di ffon 10-09-2023 Mean Corpuscular HGB Conc 34.0 g/dL Normal 32.0-35.0 [facility] Comment on above: Performed By: #### C UBLD, LACTIC #### [address] NRBC% 0.1 /100{WBC} Normal 0-0.5 [facility] Comment on above: Performed By: #### C UBLD, LACTIC #### [address] Creatinine [Mass/volume] in Serum or PlasmaOrdered By: Ilene Lopez on 10-09-2023 Creatinine [Mass/Vol] 0.48 mg/dL Low 0.60-1.20 [facility] Comment on above: Performed By: #### C UBLD, LACTIC #### [address] Erythrocyte distribution wid th [Ratio] by Automated countOrdered By: Ilene Lopez on 10-09-2023 Erythrocyte distribution width (RBC) [Ratio] 13.2 % Normal 11.9-15.3 [facility] Comment on above: Performed By: #### C UBLD, LACTIC #### [address] Erythrocytes [#/volume] in B lood by Automated countOrdered By: Ilene Calderon on 10-09-2023 RBC (Bld) [#/Vol] 3.44 10*6/uL Low 3.60-5.00 [facility] Comment on above: Performed By: #### C UBLD, LACTIC #### [address] Glucose Poct Glucometerson 0 10-09-2023 Commemt1 Glu2: Cleaned Meter Normal [facility] Comment on above: Result Comment: PERF ORMED BY: [place] [address] PATHOLOGIST RECORD CENTER COORDINATOR RIDGE HUERTA M.D. Performed By: #### U HCG #### [address] Commemt1 Glu2: Cleaned Meter Normal [facility] Comment on above: Result Comment: PERF ORMED BY: [place] [address] PATHOLOGIST RECORD CENTER COORDINATOR RIDGE HUERTA M.D. Performed By: #### C UBLD, LACTIC #### [place] [address] [place] Glucose [Mass/Vol] 188 mg/dL Normal [facility] Comment on above: Result Comment: [facility] Glucose Reference Range is dependent on time and content of last meal. Glucose of more than 200 mg/dL in a nonstressed, ambulatory subject supports the diagnosis of Diabetes Mellitus. Performed By: #### C UBLD, LACTIC #### [place] [address] [place] Glucose [Mass/volume] in Ser um or PlasmaOrdered By: Ilene Lopez on 10-09-2023 Glucose [Mass/Vol] 143 mg/dL High 70-100 [facility] Comment on above: ADA recommended refe rence rangeRandom Glucose Reference Range is dependent on time and content of last meal. Glucose of more than 200 mg/dL in a nonstressed, ambulatory subject supports the diagnosis of Diabetes Mellitus. Result Comment: [facility] Glucose Reference Range is dependent on time and content of last meal. Glucose of more than 200 mg/dL in a nonstressed, ambulatory subject supports the diagnosis of Diabetes Mellitus. ADA recommended reference range Performed By: #### C UBLD, LACTIC #### [place] [address] [place] Hematocrit [Volume Fraction] of Blood by Automated countOrdered By: Ilene Lopez on 10-09-2023 Hematocrit (Bld) [Volume fraction] 30.3 % Low 34.0-46.4 [facility] Comment on above: Performed By: #### C UBLD, LACTIC #### [place] [address] [place] Hemoglobin [Mass/volume] in BloodOrdered By: Ilene Lopez on 10-09-2023 Hemoglobin (Bld) [Mass/Vol] 10.3 g/dL Low 11.8-15.4 [facility] Comment on above: Performed By: #### C UBLD, LACTIC #### [facility] [address] Leukocytes [#/volume] correc cherie for nucleated erythrocytes in Blood by Automated counOrdered By: Ilene Lopez on 10-09-2023 WBC corrected for nucl RBC Auto (Bld) [#/Vol] 13.6 10*3/uL 3.8-11.6 [facility] Leukocytes [#/volume] in Blo od by Automated countOrdered By: Ilene Calderon on 10-09-2023 WBC (Bld) [#/Vol] 13.6 10*3/uL High 3.8-11.6 [facility] Comment on above: Performed By: #### C UBLD, LACTIC #### [facility] [address] [place] [address] [place] Lymphocytes [#/volume] in Bl ood by Automated countOrdered By: Ilene Calderon on 10-09-2023 Lymphocytes (Bld) [#/Vol] 2.2 10*3/uL Normal 1.00-4.8 [facility] Comment on above: Performed By: #### C UBLD, LACTIC #### [address] Lymphocytes/100 leukocytes i n Blood by Automated countOrdered By: Ilene Lopez on 10-09-2023 Lymphocytes/100 WBC (Bld) 16.5 % Normal . [facility] Comment on above: Performed By: #### C UBLD, LACTIC #### [facility] [address] [place] [address] [place] MCH [Entitic mass] by Automa cherie countOrdered By: Ilene Lopez on 10-09-2023 MCH (RBC) [Entitic mass] 29.9 pg Normal 24.7-34.3 [facility] Comment on above: Performed By: #### C UBLD, LACTIC #### [facility] [address] MCHC Auto (RBC) [Mass/Vol]Or dered By: Ilene Lopez on 10-09-2023 MCHC (RBC) [Mass/Vol] 34.0 g/dL 32.0-35.0 [facility] MCV [Entitic volume] by Auto mated countOrdered By: Ilene Lopez on 10-09-2023 MCV (RBC) [Entitic vol] 88.1 fL Normal 80-100 [facility] Comment on above: Performed By: #### C UBLD, LACTIC #### [facility] [address] [place] [address] Neutrophils [#/volume] in Bl ood by Automated countOrdered By: Ilene Calderon on 10-09-2023 Neutrophils (Bld) [#/Vol] 9.6 10*3/uL High 1.8-7.7 [facility] Comment on above: Performed By: #### C UBLD, LACTIC #### [facility] [address] [place] [address] No Panel InformationOrdered By: Salazar Cabrera on 10-09-2023 Bedside Glucose Comment Glu2: cleaned meter [facility] No Panel InformationOrdered By: Ilene Lopez on 10-09-2023 Estimated GFR (CKD-EPI) > 60.0 mL/Min [facility] Creatinine Clearance (Chem 153.15 [facility] Nucleated erythrocytes [Pres ence] in Blood by Automated countOrdered By: Ilene Lopez on 10-09-2023 Nucleated RBC Auto Ql (Bld) 0.1 /100{WBC} 0-0.5 [facility] Platelet mean volume [Entiti c volume] in Blood by Automated countOrdered By: Ilene Lopez on 10-09-2023 Platelet mean volume (Bld) [Entitic vol] 7.9 fL Normal 6.3-10.7 [facility] Comment on above: Performed By: #### C UBLD, LACTIC #### [facility] [address] [place] [address] Platelets [#/volume] in Bloo d by Automated countOrdered By: Ilene Lopez on 10-09-2023 Platelets (Bld) [#/Vol] 242 10*3/uL Normal 150-450 [facility] Comment on above: Performed By: #### C UBLD, LACTIC #### [address] Potassium [Moles/volume] in Serum or PlasmaOrdered By: Ilene Lopez on 10-09-2023 Potassium [Moles/Vol] 3.4 mmol/L Low 3.5-5.1 [facility] Comment on above: Performed By: #### C UBSOLIS, LACTIC #### [address] Serum or plasma anion gap de terminationOrdered By: Ilene Lopez on 10-09-2023 Anion gap [Moles/Vol] 11.8 mmol/L Normal 6.0-15.0 [facility] Comment on above: Performed By: #### C UBSOLIS, LACTIC #### [address] Sodium [Moles/volume] in Ser um or PlasmaOrdered By: Ilene Lopez on 10-09-2023 Sodium [Moles/Vol] 136 mmol/L Normal 136-145 [facility] Comment on above: Performed By: #### C UBSOLIS, LACTIC #### [address] Stool Cultureon 10-09-2023 Stool culture Comment c. diff Negative for Shiga Toxin 1 Negative for Shiga Toxin 2 A negative Shiga Toxin result may occur if the antigen level in the specimen is below the detection limit of the assay. Stool culture results No Salmonella, Shigella, Campy or E. coli 0157:H7 Isolated PERFORMED BY: [place] [address] PATHOLOGIST RECORD CENTER COORDINATOR RIDGE HUERTA M.D. Normal [facility] Comment on above: Performed By: #### C USTOOL ####[facility] [id number] Stool bacteria identificatio n by cultureOrdered By: BONG Velez on 10-09-2023 Bacteria identified Cx Nom (Stl) [facility] Urea nitrogen [Mass/volume] in Serum or PlasmaOrdered By: Ilene Lopez on 10-09-2023 Urea nitrogen [Mass/Vol] 6 mg/dL Low 7-25 [facility] Comment on above: Performed By: #### C UBLD, LACTIC #### [facility] [address] [place] [address] Alanine aminotransferase [En zymatic activity/volume] in Serum or PlasmaOrdered By: BONG Velez on 10-08-2023 ALT [Catalytic activity/Vol] 31 U/L Normal 7-52 [facility] Comment on above: Performed By: #### U HCG #### [facility] [address] [place] [address] [place] Albumin [Mass/volume] in Ser um or Plasma by Bromocresol green (BCG) dye binding methoOrdered By: BONG Velez on 10-08-2023 Albumin BCG dye [Mass/Vol] 3.7 g/dL 3.5-5.7 [facility] Alkaline phosphatase [Enzyma tic activity/volume] in Serum or PlasmaOrdered By: BONG Velez on 10-08-2023 ALP [Catalytic activity/Vol] 61 U/L Normal 34-104 [facility] Comment on above: Performed By: #### U HCG #### [facility] [address] [place] [address] [place] Aspartate aminotransferase [ Enzymatic activity/volume] in Serum or PlasmaOrdered By: BONG Velez on 10-08-2023 AST [Catalytic activity/Vol] 40 U/L High 13-39 [facility] Comment on above: Performed By: #### U HCG #### [address] Automated erythrocytes count in urine sediment (number/area)Ordered By: BONG Velez on 10-08-2023 RBC Auto (Urine sed) [#/Area] 5-9 [HPF] 0-4 [facility] Automated leukocytes count i n urine sediment (number/area)Ordered By: BONG Velez on 10-08-2023 WBC Auto (Urine sed) [#/Area] 3-4 [HPF] 0-4 [facility] Automated urine color determ inationOrdered By: BONG Velez on 10-08-2023 Color (U) [place] Critically abnormal Yellow [facility] Comment on above: Order Comment: Name Collection Type:: Martinez Catheter Performed By: #### A DDONUAPLUS #### [address] Automated urine hyaline cast s count (number/volume)Ordered By: BONG Velez on 10-08-2023 Hyaline casts Auto (U) [#/Vol] None seen [LPF] 0-1 [facility] Bilirubin Test strip Ql (U)O rdered By: BONG Velez on 10-08-2023 Bilirubin Ql (U) 1+ Negative [facility] Bilirubin.total [Mass/volume ] in Serum or PlasmaOrdered By: BONG Velez on 10-08-2023 Bilirubin [Mass/Vol] 0.6 mg/dL Normal 0.3-1.0 [facility] Comment on above: Performed By: #### U HCG #### [address] abdomen pelvis w conon CT abdomen pelvis w con [facility] [place] [address] [place] [address] CT Scan Report Signed Patient: Rachel Mcgarry MR#: [id number] 1 : 1980 Acct:[id number] Age/Sex: 43 / F ADM Date: 10/07/23 Loc: Room: 3Y3846-6 Type: ADM IN Attending Dr: Beltran Velez MD Copies to: BONG Motley Ordering Provider: BONG Motley Date of Service: 10/08/23 CT/CT abdomen pelvis w con: Abdominal pain/distended abdomen CT abdomen and pelvis with contrast CLINICAL DATA: Abdominal pain, distention and vomiting. Recent hysterectomy. COMPARISON: 10/07/2023 from [facility]. No report is available at [...] Eda Yañez M.D.10/08/2023 12:09 PM Dictation Location: [place] [address] Transcribed By: PWS 10/08/23 1209 Dictated By: Eda Yañez MD 10/08/23 1142 Signed By: 10/08/23 1209 Normal [facility] Casts typing in urine sedime nt by light microscopyOrdered By: BONG Velez on 10-08-2023 Casts LM Nom (Urine sed) None seen [LPF] None Seen [facility] Complete Blood Count Auto Di ffon 10-08-2023 Basophils (Bld) [#/Vol] 0.1 10*3/uL Normal 0.0-0.2 [facility] Comment on above: Result Comment: PERF ORMED BY: [place] [address] PATHOLOGIST RECORD CENTER COORDINATOR RIDGE HUERTA M.D. Performed By: #### U HCG #### [address] Basophils/100 WBC (Bld) 0.5 % Normal . T gavin [facility] Comment on above: Performed By: #### U HCG #### [place] [address] [place] Eosinophils (Bld) [#/Vol] 0.2 10*3/uL Normal 0.0-0.45 [facility] Comment on above: Performed By: #### U HCG #### [address] Eosinophils/100 WBC (Bld) 1.3 % Normal . [facility] Comment on above: Performed By: #### U HCG #### [address] Erythrocyte distribution width (RBC) [Ratio] 13.2 % Normal 11.9-15.3 [facility] Comment on above: Performed By: #### U HCG #### [address] Hematocrit (Bld) [Volume fraction] 35.9 % Normal 34.0-46.4 [facility] Comment on above: Performed By: #### U HCG #### [place] [address] [place] Hemoglobin (Bld) [Mass/Vol] 12.1 g/dL Normal 11.8-15.4 [facility] Comment on above: Performed By: #### U HCG #### [address] Lymphocytes (Bld) [#/Vol] 3.0 10*3/uL Normal 1.00-4.8 [facility] Comment on above: Performed By: #### U HCG #### [address] Lymphocytes/100 WBC (Bld) 16.8 % Normal . [facility] Comment on above: Performed By: #### U HCG #### [address] MCH (RBC) [Entitic mass] 29.7 pg Normal 24.7-34.3 [facility] Comment on above: Performed By: #### U HCG #### [address] MCV (RBC) [Entitic vol] 88.3 fL Normal 80-100 [facility] Comment on above: Performed By: #### U HCG #### [address] Mean Corpuscular HGB Conc 33.6 g/dL Normal 32.0-35.0 [facility] Comment on above: Performed By: #### U HCG #### [address] Monocytes (Bld) [#/Vol] 1.5 10*3/uL High 0.0-0.8 [facility] Comment on above: Performed By: #### U HCG #### [address] Monocytes/100 WBC (Bld) 8.4 % Normal . [facility] Comment on above: Performed By: #### U HCG #### [address] Neutrophils (Bld) [#/Vol] 12.9 10*3/uL High 1.8-7.7 [facility] Comment on above: Performed By: #### U HCG #### [address] Neutrophils/100 WBC (Bld) 73.0 % Normal . [facility] Comment on above: Performed By: #### U HCG #### [address] NRBC% 0.1 /100{WBC} Normal 0-0.5 [facility] Comment on above: Performed By: #### U HCG #### [address] Platelet mean volume (Bld) [Entitic vol] 7.9 fL Normal 6.3-10.7 [facility] Comment on above: Performed By: #### U HCG #### [address] Platelets (Bld) [#/Vol] 274 10*3/uL Normal 150-450 [facility] Comment on above: Performed By: #### U HCG #### [address] RBC (Bld) [#/Vol] 4.06 10*6/uL Normal 3.60-5.00 [facility] Comment on above: Performed By: #### U HCG #### [address] WBC (Bld) [#/Vol] 17.6 10*3/uL High 3.8-11.6 [facility] Comment on above: Performed By: #### U HCG #### [address] Comprehensive Metabolic Pane rosa 10-08-2023 Albumin [Mass/Vol] 3.7 g/dL Normal 3.5-5.7 [facility] Comment on above: Performed By: #### U HCG #### [address] Anion gap [Moles/Vol] 14.8 mmol/L Normal 6.0-15.0 [facility] Comment on above: Performed By: #### U HCG #### [place] [address] [place] Calcium [Mass/Vol] 7.8 mg/dL Low 8.6-10.3 [facility] Comment on above: Performed By: #### U HCG #### [place] [address] [place] Chloride [Moles/Vol] 104 mmol/L Normal 98-107 [facility] Comment on above: Performed By: #### U HCG #### [place] [address] [place] CO2 [Moles/Vol] 20.2 mmol/L Low 21.0-31.0 [facility] Comment on above: Performed By: #### U HCG #### [place] [address] [place] Creatinine [Mass/Vol] 0.58 mg/dL Low 0.60-1.20 [facility] Comment on above: Performed By: #### U HCG #### [place] [address] [place] Creatinine Clr Calc Pharmacy 126.74 Normal [facility] Comment on above: Result Comment: PERF ORMED BY: [place] [address] PATHOLOGIST RECORD CENTER COORDINATOR RIDGE HUERTA M.D. Performed By: #### U HCG #### [place] [address] [place] GFR/1.73 sq M.predicted MDRD (S/P/Bld) [Vol rate/Area] mL/min/{1.73_m2} Normal [facility] Comment on above: Performed By: #### U HCG #### [place] [address] [place] Glucose [Mass/Vol] 155 mg/dL High 70-100 [facility] Comment on above: Result Comment: Regina om Glucose Reference Range is dependent on time and content of last meal. Glucose of more than 200 mg/dL in a nonstressed, ambulatory subject supports the diagnosis of Diabetes Mellitus. ADA recommended reference range Performed By: #### U HCG #### [address] Potassium [Moles/Vol] 4.0 mmol/L Normal 3.5-5.1 [facility] Comment on above: Performed By: #### U HCG #### [address] Sodium [Moles/Vol] 135 mmol/L Low 136-145 [facility] Comment on above: Performed By: #### U HCG #### [address] Urea nitrogen [Mass/Vol] 10 mg/dL Normal 7-25 [facility] Comment on above: Performed By: #### U HCG #### [address] Albumin [Mass/Vol] 3.7 g/dL Normal 3.5-5.7 [facility] Comment on above: Performed By: #### C MP, LACTIC ####[address] Albumin/Globulin [Mass ratio] 1.5 {ratio} Normal [facility] Comment on above: Performed By: #### C MP, LACTIC ####[place] [id number] [facility] ALP [Catalytic activity/Vol] 62 U/L Normal 34-104 [facility] Comment on above: Performed By: #### C MP, LACTIC ####[place] [id number] [facility] ALT [Catalytic activity/Vol] 34 U/L Normal 7-52 [facility] Comment on above: Performed By: #### C MP, LACTIC ####[place] [id number] [facility] Anion gap [Moles/Vol] 14.3 mmol/L Normal 6.0-15.0 [facility] e [facility] Comment on above: Performed By: #### C MP, LACTIC ####[place] [id number] [place] AST [Catalytic activity/Vol] 74 U/L High 13-39 [facility] Comment on above: Performed By: #### C MP, LACTIC ####[address] Bilirubin [Mass/Vol] 0.5 mg/dL Normal 0.3-1.0 [facility] Comment on above: Performed By: #### C MP, LACTIC ####[address] Calcium [Mass/Vol] 7.9 mg/dL Low 8.6-10.3 [facility] Comment on above: Performed By: #### C MP, LACTIC ####[address] Chloride [Moles/Vol] 102 mmol/L Normal 98-107 [facility] Comment on above: Performed By: #### C MP, LACTIC ####[address] CO2 [Moles/Vol] 21.0 mmol/L Normal 21.0-31.0 [facility] Comment on above: Performed By: #### C MP, LACTIC ####[address] Creatinine [Mass/Vol] 0.56 mg/dL Low 0.60-1.20 [facility] Comment on above: Performed By: #### C MP, LACTIC ####[address] Creatinine Clr Calc Pharmacy 131.27 Normal [facility] Comment on above: Result Comment: PERF ORMED BY: [facility] [address] [place] [address] PATHOLOGIST RECORD CENTER COORDINATOR RIDGE HUERTA M.D. Performed By: #### C MP, LACTIC ####[address] GFR/1.73 sq M.predicted MDRD (S/P/Bld) [Vol rate/Area] mL/min/{1.73_m2} Normal [facility] Comment on above: Performed By: #### C MP, LACTIC ####[place] [id number] [address] Globulin (S) [Mass/Vol] 2.4 g/dL Normal T he [facility] Comment on above: Performed By: #### C MP, LACTIC ####[place] [id number] [address] Glucose [Mass/Vol] 208 mg/dL High 70-100 [facility] Comment on above: Result Comment: Regina Glucose Reference Range is dependent on time and content of last meal. Glucose of more than 200 mg/dL in a nonstressed, ambulatory subject supports the diagnosis of Diabetes Mellitus. ADA recommended reference range Performed By: #### C MP, LACTIC ####[place] [id number] [address] Potassium [Moles/Vol] 4.3 mmol/L Normal 3.5-5.1 [facility] Comment on above: Performed By: #### C MP, LACTIC ####[address] Protein [Mass/Vol] 6.1 g/dL Low 6.4-8.9 [facility] Comment on above: Performed By: #### C MP, LACTIC ####[address] Sodium [Moles/Vol] 133 mmol/L Low 136-145 [facility] Comment on above: Performed By: #### C MP, LACTIC ####[address] Urea nitrogen [Mass/Vol] 9 mg/dL Normal 7-25 [facility] Comment on above: Performed By: #### C MP, LACTIC ####[place] [address] [place] Dipstick and Microscopicon 0 10-08-2023 Appearance (U) Turbid Critically abnormal Clear [facility] Comment on above: Order Comment: Name Collection Type:: Martinez Catheter Performed By: #### A DDONUAPLUS #### [place] [address] [place] Bacteria,Urine None Seen Normal None Seen [facility] Comment on above: Order Comment: Name Collection Type:: Martinez Catheter Performed By: #### A DDONUAPLUS #### [place] [address] [place] Bilirubin,Urine 1+ High Negative [facility] Comment on above: Order Comment: Name Collection Type:: Martinez Catheter Performed By: #### A DDONUAPLUS #### [address] Glucose Ql (U) 250 mg/dL High Normal [facility] Comment on above: Order Comment: Name Collection Type:: Martinez Catheter Performed By: #### A DDONUAPLUS #### [place] [address] [place] Hyaline Casts,Urine None Seen Normal 0-1 [facility] Comment on above: Order Comment: Name Collection Type:: Martinez Catheter Performed By: #### A DDONUAPLUS #### [place] [address] [place] Ketones Ql (U) Trace High Negative [facility] Comment on above: Order Comment: Name Collection Type:: Martinez Catheter Performed By: #### A DDONUAPLUS #### [address] Leukocyte esterase Test strip Ql (U) Negative Normal Negative [facility] Comment on above: Order Comment: Name Collection Type:: Martinez Catheter Performed By: #### A DDONUAPLUS #### [place] [address] [place] Nitrite,Urine Negative Normal Negative [facility] Comment on above: Order Comment: Name Collection Type:: Martinez Catheter Performed By: #### A DDONUAPLUS #### [place] [address] [place] Occult Blood,Urine Negative Normal Negative [facility] Comment on above: Order Comment: Name Collection Type:: Martinez Catheter Result Comment: PERF ORMED BY: [place] [address] PATHOLOGIST RECORD CENTER COORDINATOR RIDGE HUERTA M.D. Performed By: #### A DDONUAPLUS #### [address] Other Casts,Urine None Seen Normal None Seen [facility] Comment on above: Order Comment: Name Collection Type:: Martinez Catheter Result Comment: PERF ORMED BY: [place] [address] PATHOLOGIST RECORD CENTER COORDINATOR RIDGE HUERTA M.D. Performed By: #### A DDONUAPLUS #### [address] RBC,Urine 5-9 High 0-4 [facility] Comment on above: Order Comment: Name Collection Type:: Martinez Catheter Performed By: #### A DDONUAPLUS #### [address] Specificy [place],Urine > 1.050 High 1.00 1-1.03 0 [facility] Comment on above: Order Comment: Name Collection Type:: Martinez Catheter Performed By: #### A DDONUAPLUS #### [place] [address] [place] Squamous Epithelial Cell,Urine 5-9 High 0-2 [facility] Comment on above: Order Comment: Name Collection Type:: Martinez Catheter Performed By: #### A DDONUAPLUS #### [address] Urobilinogen,Urine Normal Normal Normal [facility] Comment on above: Order Comment: Name Collection Type:: Martinez Catheter Performed By: #### A DDONUAPLUS #### [place] [address] [place] WBC,Urine 3-4 Normal 0-4 [facility] Comment on above: Order Comment: Name Collection Type:: Martinez Catheter Performed By: #### A DDONUAPLUS #### [address] Glucose Poct Glucometerson 0 10-08-2023 Glucose [Mass/Vol] 194 mg/dL Normal [facility] Comment on above: Result Comment: Regina om Glucose Reference Range is dependent on time and content of last meal. Glucose of more than 200 mg/dL in a nonstressed, ambulatory subject supports the diagnosis of Diabetes Mellitus. PERFORMED BY: [place] [address] PATHOLOGIST RECORD CENTER COORDINATOR RIDGE HUERTA M.D. Performed By: #### C UBLD, LACTIC #### [address] Commemt1 Glu2: Cleaned Meter Normal [facility] Comment on above: Result Comment: PERF ORMED BY: [place] [address] PATHOLOGIST RECORD CENTER COORDINATOR RIGDE HUERTA M.D. Performed By: #### G LULS #### Point of Care testing , Glucose [Mass/Vol] 265 mg/dL Normal [facility] Comment on above: Result Comment: Regina om Glucose Reference Range is dependent on time and content of last meal. Glucose of more than 200 mg/dL in a nonstressed, ambulatory subject supports the diagnosis of Diabetes Mellitus. Performed By: #### G LULS #### Point of Care testing , Commemt1 Glu2: Cleaned Meter Normal [facility] Comment on above: Result Comment: PERF ORMED BY: [place] [address] PATHOLOGIST RECORD CENTER COORDINATOR RIDGE HUERTA M.D. Performed By: #### U HCG #### [place] [address] [place] Glucose [Mass/Vol] 166 mg/dL Normal [facility] Comment on above: Result Comment: Regina om Glucose Reference Range is dependent on time and content of last meal. Glucose of more than 200 mg/dL in a nonstressed, ambulatory subject supports the diagnosis of Diabetes Mellitus. Performed By: #### U HCG #### [address] Glucose [Mass/Vol] 168 mg/dL Normal [facility] Comment on above: Result Comment: Regina om Glucose Reference Range is dependent on time and content of last meal. Glucose of more than 200 mg/dL in a nonstressed, ambulatory subject supports the diagnosis of Diabetes Mellitus. PERFORMED BY: [address] SHELDON[address]anch[address] [place] [id number] PATHOLOGIST RECORD CENTER COORDINATOR RIDGE HUERTA M.D. Performed By: #### G LULS ####Point of Care testing, Ketones Auto test strip (U) [Mass/Vol]Ordered By: BONG Velez on 10-08-2023 Ketones (U) [Mass/Vol] Trace Negative [facility] Lactate [Moles/volume] in Se rum or PlasmaOrdered By: BONG Velez on 10-08-2023 Lactate [Moles/Vol] 1.9 mmol/L 0.5-2.2 [facility] Lactic Acidon 10-08-2023 Lactate [Moles/Vol] 2.0 mmol/L Off scale high 0.5-2.2 [facility] Comment on above: Result Comment: Crit ical Result : Called to and read back by: BERT NAJERA at: 10/08/2023 07:31:51 by:[id number] PERFORMED BY: [address] [place] [address] PATHOLOGIST RECORD CENTER COORDINATOR RIDGE HUERTA M.D. Performed By: #### L ACTIC ####[place] [id number] [place] [address] [facility] Lactate [Moles/Vol] 2.6 mmol/L Off scale high 0.5-2.2 [facility] Comment on above: Result Comment: Crit ical Result : Called to and read back by: CLARISSA PATLE at: 10/08/2023 00:48:06 by:HENRY PERFORMED BY: [address] [place] [address] PATHOLOGIST RECORD CENTER COORDINATOR RIDGE HUERTA M.D. Performed By: #### C MP, LACTIC ####[address] [address] [place] Lactic Acid Reflexon 024 Lactic Acid Reflex 1.9 mmol/L Normal 0.5-2.2 [facility] Comment on above: Result Comment: PERF ORMED BY: [place] [address] PATHOLOGIST RECORD CENTER COORDINATOR RIDGE HUERTA M.D. Performed By: #### L ACTIC RFX #### [facility] [address] [place] [address] Nitrite Test strip Ql (U)Ord ered By: BONG Velez on 10-08-2023 Nitrite Ql (U) Negative Negative [facility] Protein [Mass/volume] in Ser um or PlasmaOrdered By: BONG Velez on 10-08-2023 Protein [Mass/Vol] 6.3 g/dL Low 6.4-8.9 [facility] Comment on above: Performed By: #### U HCG #### [address] Serum globulin measurement b y calculation (mass/volume)Ordered By: BONG Velez on 10-08-2023 Globulin (S) [Mass/Vol] 2.6 g/dL Normal [facility] Comment on above: Performed By: #### U HCG #### [address] Serum or plasma albumin/glob ulin mass ratioOrdered By: BONG Velez on 10-08-2023 Albumin/Globulin [Mass ratio] 1.4 {ratio} Normal [facility] Comment on above: Performed By: #### U HCG #### [address] Specific gravity Auto test s trip (U) [Rel density]Ordered By: BONG Velez on 10-08-2023 Specific gravity (U) [Rel density] > 1.050 1.001-1.03 0 [facility] Squamous epithelial cells de tection in urine sediment by light microscopyOrdered By: BONG Velez on 10-08-2023 Epithelial cells.squamous LM Ql (Urine sed) 5-9 [HPF] 0-2 [facility] Urine bacteria detection by automated methodOrdered By: BONG Velez on 10-08-2023 Bacteria Auto Ql (U) None seen None Seen [facility] Urine clarity by refractomet ry automatedOrdered By: BONG Velez on 10-08-2023 Clarity Refractometry automated (U) Turbid Clear [facility] Urine glucose measurement by automated test strip (mass/volume)Ordered By: ARIELLE Velez on 10-08-2023 Glucose Auto test strip (U) [Mass/Vol] 250 mg/dL Normal [facility] Urine hemoglobin detection b y automated test stripOrdered By: BONG Velez on 10-08-2023 Hemoglobin Auto test strip Ql (U) Negative Negative [facility] Urine leukocyte esterase det ection by automated test stripOrdered By: BONG Velez on 10-08-2023 Leukocyte esterase Auto test strip Ql (U) Negative Negative [facility] Urine pH measurement by auto mated test stripOrdered By: BONG Velez on 10-08-2023 pH (U) 5.5 [pH] Normal 5.0-9.0 [facility] Comment on above: Order Comment: Name Collection Type:: Martinez Catheter Performed By: #### A DDONUAPLUS #### [facility] [address] Urine protein measurement by automated test strip (mass/volume)Ordered By: ARIELLE Velez on 10-08-2023 Protein (U) [Mass/Vol] 30 mg/dL High Negative [facility] Comment on above: Order Comment: Name Collection Type:: Martinez Catheter Performed By: #### A DDONUAPLUS #### [facility] [address] [place] [address] [place] Urobilinogen Auto test strip (U) [Mass/Vol]Ordered By: BONG Velez on 10-08-2023 Urobilinogen (U) [Mass/Vol] Normal mg/dL Normal [facility] Capillary blood glucose ashwini urement by glucometer (mass/volume)Ordered By: Carri Manuel on 09-28-2023 Glucose [Mass/Vol] 196 mg/dL Normal [facility] Comment on above: Random Glucose Refer ence Range is dependent on time and content of last meal. Glucose of more than 200 mg/dL in a nonstressed, ambulatory subject supports the diagnosis of Diabetes Mellitus. Result Comment: [facility] Glucose Reference Range is dependent on time and content of last meal. Glucose of more than 200 mg/dL in a nonstressed, ambulatory subject supports the diagnosis of Diabetes Mellitus. PERFORMED BY: [place] [address] PATHOLOGIST RECORD CENTER COORDINATOR RIDGE HUERTA M.D. Performed By: #### G LULS ####Point of Care testing, Glucose Poct Glucometerson 1 11-29-2022 Commemt1 Glu2: Cleaned Meter Normal [facility] Comment on above: Result Comment: PERF ORMED BY: [place] [address] PATHOLOGIST RECORD CENTER COORDINATOR RIDGE HUERTA M.D. Performed By: #### U HCG #### [address] Glucose [Mass/Vol] 153 mg/dL Normal [facility] Comment on above: Result Comment: [facility] Glucose Reference Range is dependent on time and content of last meal. Glucose of more than 200 mg/dL in a nonstressed, ambulatory subject supports the diagnosis of Diabetes Mellitus. Performed By: #### U HCG #### [facility] [address] [place] [address] HCG ( test) [place].rapi d Ql (U)Ordered By: Edna Álvarez on 09-28-2023 HCG ( test) Ql (U) Negative [facility] HCG,Urineon 09-28-2023 Beta HCG ( test) Ql (U) Negative Normal [facility] Comment on above: Result Comment: PERF ORMED BY: [place] [address] PATHOLOGIST RECORD CENTER COORDINATOR RIDGE HUERTA M.D. Performed By: #### U HCG #### [facility] [address] [place] [address], [place] [address] [facility] 09-28-2023 L ------- Specimen: [id number] Received: 09/28/23 Status: BLUE Neal Num: [id number] Spec Type: Surgical Subm Dr: Carri Manuel DO Tissues: A Uterus w/ or w/o tubes ovaries except neoplastic or prolap (CERVIX, MIGUELINA TU Procedures: , Gross/Micro L5 Age/ Patient Sex Location Account Attending Physician Rachel Mcgarry 43/F [place] [id number] Carri Manuel DO SPEC NUM: [id number] RECD: 09/28/23 STATUS: BLUE NEAL NUM: [id number] JOSEPH: 09/28/[address]: Carri Manuel DO ENTERED: 09/28/[address] [facility] DR: SPEC TYPE: Surgical DEPT: [...] an unremarkable, pinpoint lumen on cut section. Compound Worker sections are submitted in 6 cassettes as follows: A1 - Anterior cervix A2 - Posterior cervix A3 - Anterior endomyometrium Specimen: [id number] Received: 09/28/23 Status: BLUE Damon Num: [id number] Spec Type: Surgical Subm Dr: Carri A Visci, DO Tissues: A Uterus w/ or w/o tubes ovaries except neoplastic or prolap (CERVIX, MIGUELINA TU Procedures: , Gross/Micro L5 Patient: Rachel Mcgarry Tyron [id number] (Continued) Specimen: [id number] Received: 09/28/23 (Continued) Gross Description (Continued) Signed (signature on file) Nikkie Munguia MD 09/29/23 2213 Specimen: [id number] Received: 09/28/23 Status: BLUE Neal Num: [id number] Spec Type: Surgical Subm Dr: Carri Manuel, DO Tissues: A Uterus w/ or w/o tubes ovaries except neoplastic or prolap (CERVIX, MIGUELINA TU Procedures: , Gross/Micro L5 Patient: Rachel Mcgarry [id number] (Continued) Specimen: [id number] Received: 09/28/23 (Continued) Gross Description (Continued) A4 - Posterior endomyometrium A5 - Right fallopian tube A6 - Left fallopian tube Microscopic Description Six H E slides reviewed. The microscopic examination confirms the diagnosis. CPT Codes 37618 Specimen: [id number] Received: 09/28/23 Status: BLUE Neal Num: [id number] Spec Type: Surgical Subm Dr: Carri Manuel, Tissues: A Uterus w/ or w/o tubes ovaries except neoplastic or prolap (CERVIX, MIGUELINA TU Procedures: , Gross/Micro L5 Patient: Rachel Mcgarry [id number] (Continued) Signed (signature on file) Nikkie Munguia MD 09/29/232212 Normal [facility] No Panel InformationOrdered By: Carri Manuel on 09-28-2023 Bedside Glucose Comment Glu2: cleaned meter [facility] Automated basophil %Ordered By: Carri Manuel on 09-16-2023 Basophils/100 WBC (Bld) 0.6 % Normal . [facility] Comment on above: Performed By: #### U HCG #### [facility] [address] Automated basophil countOrde red By: Carri Manuel on 09-16-2023 Basophils (Bld) [#/Vol] 0.1 10*3/uL Normal 0.0-0.2 [facility] Comment on above: Result Comment: PERF ORMED BY: [facility] [address] [place] [address] PATHOLOGIST RECORD CENTER COORDINATOR RIDGE HUERTA M.D. Performed By: #### U HCG #### [facility] [address] Automated blood monocyte cou ntOrdered By: Carri Manuel on 09-16-2023 Monocytes (Bld) [#/Vol] 0.9 10*3/uL High 0.0-0.8 [facility] Comment on above: Performed By: #### U HCG #### [address] Automated eosinophil %Ordere d By: Carri Guzman on 09-16-2023 Eosinophils/100 WBC (Bld) 0.5 % Normal . [facility] Comment on above: Performed By: #### U HCG #### [facility] [address] Automated eosinophil countOr dered By: Carri Guzman on 09-16-2023 Eosinophils (Bld) [#/Vol] 0.1 10*3/uL Normal 0.0-0.45 [facility] Comment on above: Performed By: #### U HCG #### [address] Automated monocyte %Ordered By: Carri Guzman on 09-16-2023 Monocytes/100 WBC (Bld) 7.5 % Normal . [facility] Comment on above: Performed By: #### U HCG #### [address] Automated neutrophil %Ordere d By: Carri Guzman on 09-16-2023 Neutrophils/100 WBC (Bld) 66.5 % Normal . [facility] Comment on above: Performed By: #### U HCG #### [address] Basic Metabolic Panelon 09-03 GFR/1.73 sq M.predicted MDRD (S/P/Bld) [Vol rate/Area] mL/min/{1.73_m2} Normal [facility] Comment on above: Performed By: #### U HCG #### [address] Calcium [Mass/volume] in Ser um or PlasmaOrdered By: Carri Manuel on 09-16-2023 Calcium [Mass/Vol] 9.3 mg/dL Normal 8.6-10.3 [facility] Comment on above: Result Comment: PERF ORMED BY: [address] [place] [address] PATHOLOGIST RECORD CENTER COORDINATOR RIDGE HUERTA M.D. Performed By: #### U HCG #### [address] Carbon dioxide, total [Moles /volume] in Serum or PlasmaOrdered By: Carri Manuel on 09-16-2023 CO2 [Moles/Vol] 25.5 mmol/L Normal 21.0-31.0 [facility] Comment on above: Performed By: #### U HCG #### [address] Chloride [Moles/volume] in S alissa or PlasmaOrdered By: Carri Manuel on 09-16-2023 Chloride [Moles/Vol] 99 mmol/L Normal 98-107 [facility] Comment on above: Performed By: #### U HCG #### [address] Complete Blood Count Auto Di ffon 09-16-2023 Mean Corpuscular HGB Conc 33.5 g/dL Normal 32.0-35.0 [facility] Comment on above: Performed By: #### U HCG #### [address] NRBC% 0.1 /100{WBC} Normal 0-0.5 [facility] Comment on above: Performed By: #### U HCG #### [address] Creatinine [Mass/volume] in Serum or PlasmaOrdered By: Carri Manuel on 09-16-2023 Creatinine [Mass/Vol] 0.68 mg/dL Normal 0.60-1.20 [facility] Comment on above: Performed By: #### U HCG #### [address] Erythrocyte distribution wid th [Ratio] by Automated countOrdered By: Carri Manuel on 09-16-2023 Erythrocyte distribution width (RBC) [Ratio] 13.3 % Normal 11.9-15.3 [facility] Comment on above: Performed By: #### U HCG #### [address] Erythrocytes [#/volume] in B lood by Automated countOrdered By: Carri Manuel on 09-16-2023 RBC (Bld) [#/Vol] 4.31 10*6/uL Normal 3.60-5.00 [facility] Comment on above: Performed By: #### U HCG #### [address] Glucose [Mass/volume] in Ser um or PlasmaOrdered By: Carri Manuel on 09-16-2023 Glucose [Mass/Vol] 355 mg/dL High 70-100 [facility] Comment on above: ADA recommended refe rence rangeRandom Glucose Reference Range is dependent on time and content of last meal. Glucose of more than 200 mg/dL in a nonstressed, ambulatory subject supports the diagnosis of Diabetes Mellitus. Result Comment: [facility] Glucose Reference Range is dependent on time and content of last meal. Glucose of more than 200 mg/dL in a nonstressed, ambulatory subject supports the diagnosis of Diabetes Mellitus. ADA recommended reference range Performed By: #### U HCG #### [address] Hematocrit [Volume Fraction] of Blood by Automated countOrdered By: Carri Manuel on 09-16-2023 Hematocrit (Bld) [Volume fraction] 38.3 % Normal 34.0-46.4 [facility] Comment on above: Performed By: #### U HCG #### [address] Hemoglobin [Mass/volume] in BloodOrdered By: Carri Manuel on 09-16-2023 Hemoglobin (Bld) [Mass/Vol] 12.8 g/dL Normal 11.8-15.4 [facility] Comment on above: Performed By: #### U HCG #### [place] [address] [place] Leukocytes [#/volume] correc cherie for nucleated erythrocytes in Blood by Automated counOrdered By: Carri Manuel on 09-16-2023 WBC corrected for nucl RBC Auto (Bld) [#/Vol] 12.5 10*3/uL 3.8-11.6 [facility] Leukocytes [#/volume] in Blo od by Automated countOrdered By: Carri Manuel on 09-16-2023 WBC (Bld) [#/Vol] 12.5 10*3/uL High 3.8-11.6 [facility] Comment on above: Performed By: #### U HCG #### [address] Lymphocytes [#/volume] in Bl ood by Automated countOrdered By: Carri Manuel on 09-16-2023 Lymphocytes (Bld) [#/Vol] 3.1 10*3/uL Normal 1.00-4.8 [facility] Comment on above: Performed By: #### U HCG #### [address] Lymphocytes/100 leukocytes i n Blood by Automated countOrdered By: Carri Manuel on 09-16-2023 Lymphocytes/100 WBC (Bld) 24.9 % Normal . [facility] Comment on above: Performed By: #### U HCG #### [address] MCH [Entitic mass] by Automa cherie countOrdered By: Carri Manuel on 09-16-2023 MCH (RBC) [Entitic mass] 29.7 pg Normal 24.7-34.3 [facility] Comment on above: Performed By: #### U HCG #### [address] MCHC Auto (RBC) [Mass/Vol]Or dered By: Carri Manuel on 09-16-2023 MCHC (RBC) [Mass/Vol] 33.5 g/dL 32.0-35.0 [facility] MCV [Entitic volume] by Auto mated countOrdered By: Carri Manuel on 09-16-2023 MCV (RBC) [Entitic vol] 88.8 fL Normal 80-100 [facility] Comment on above: Performed By: #### U HCG #### [address] [place] [address] [place] Neutrophils [#/volume] in Bl ood by Automated countOrdered By: Carri Manuel on 09-16-2023 Neutrophils (Bld) [#/Vol] 8.3 10*3/uL High 1.8-7.7 [facility] Comment on above: Performed By: #### U HCG #### [facility] [address] [place] [address] No Panel InformationOrdered By: Carri Manuel on 09-16-2023 Estimated GFR (CKD-EPI) > 60.0 mL/Min [facility] Creatinine Clearance (Chem N/A [facility] Nucleated erythrocytes [Pres ence] in Blood by Automated countOrdered By: Carri Manuel on 09-16-2023 Nucleated RBC Auto Ql (Bld) 0.1 /100{WBC} 0-0.5 [facility] PST Type and Screenon 2022 ABO and Rh group Nom (Bld) Blood group A Rh(D) positive Normal [facility] Comment on above: Order Comment: Date of Surgery: [id number] Result Comment: PERF ORMED BY: [place] [address] PATHOLOGIST RECORD CENTER COORDINATOR RIDGE HUERTA M.D. Platelet mean volume [Entiti c volume] in Blood by Automated countOrdered By: Carri Manuel on 09-16-2023 Platelet mean volume (Bld) [Entitic vol] 8.2 fL Normal 6.3-10.7 [facility] Comment on above: Performed By: #### U HCG #### [facility] [address] [place] [address] [place] Platelets [#/volume] in Bloo d by Automated countOrdered By: Carri Manuel on 09-16-2023 Platelets (Bld) [#/Vol] 305 10*3/uL Normal 150-450 [facility] Comment on above: Performed By: #### U HCG #### [facility] [address] [place] [address] [place] Potassium [Moles/volume] in Serum or PlasmaOrdered By: Carri Manuel on 09-16-2023 Potassium [Moles/Vol] 5.0 mmol/L Normal 3.5-5.1 [facility] Comment on above: Performed By: #### U HCG #### [facility] [address] Serum or plasma anion gap de terminationOrdered By: Carri Manuel on 09-16-2023 Anion gap [Moles/Vol] 14.5 mmol/L Normal 6.0-15.0 [facility] Comment on above: Performed By: #### U HCG #### [facility] [address] Sodium [Moles/volume] in Ser um or PlasmaOrdered By: Carri Manuel on 09-16-2023 Sodium [Moles/Vol] 134 mmol/L Low 136-145 [facility] Comment on above: Performed By: #### U HCG #### [facility] [address] Urea nitrogen [Mass/volume] in Serum or PlasmaOrdered By: Carri Manuel on 09-16-2023 Urea nitrogen [Mass/Vol] 13 mg/dL Normal 7-25 [facility] Comment on above: Performed By: #### U HCG #### [facility] [address] [place] [address] Glucose Glucometer (BldC) [M ass/Vol]Ordered By: Carri Manuel on 07-13-2023 Glucose [Mass/Vol] 119 mg/dL [facility] Comment on above: Random Glucose Refer ence Range is dependent on time and content of last meal. Glucose of more than 200 mg/dL in a nonstressed, ambulatory subject supports the diagnosis of Diabetes Mellitus. HCG ( test) IA.rapi d Ql (U)Ordered By: Julio Monroe on 07-13-2023 HCG ( test) Ql (U) Negative [facility] No Panel InformationOrdered By: Carri Manuel on 07-13-2023 Bedside Glucose Comment Glu2: cleaned meter [facility] Basophils Auto (Bld) [#/Vol] Ordered By: Carri Manuel on 06-30-2023 Basophils (Bld) [#/Vol] 0.1 10*3/uL 0.0-0.2 [facility] Basophils/100 WBC Auto (Bld) Ordered By: Carri Manuel on 06-30-2023 Basophils/100 WBC (Bld) 0.7 % . [facility] Calcium [Mass/volume] in Ser um or PlasmaOrdered By: Carri Manuel on 06-30-2023 Calcium [Mass/Vol] 9.2 mg/dL 8.6-10.3 [facility] Carbon dioxide, total [Moles /volume] in Serum or PlasmaOrdered By: Carri Manuel on 06-30-2023 CO2 [Moles/Vol] 26.7 mmol/L 21.0-31.0 [facility] Chloride [Moles/volume] in S alissa or PlasmaOrdered By: Carri Manuel on 06-30-2023 Chloride [Moles/Vol] 100 mmol/L 98-107 [facility] Creatinine [Mass/volume] in Serum or PlasmaOrdered By: Carri Manuel on 06-30-2023 Creatinine [Mass/Vol] 0.54 mg/dL 0.60-1.20 [facility] Eosinophils Auto (Bld) [#/Vo l]Ordered By: Carri Manuel on 06-30-2023 Eosinophils (Bld) [#/Vol] 0.1 10*3/uL 0.0-0.45 [facility] Eosinophils/100 WBC Auto (Bl d)Ordered By: Carri Manuel on 06-30-2023 Eosinophils/100 WBC (Bld) 0.4 % . [facility] Erythrocyte distribution wid th Auto (RBC) [Ratio]Ordered By: Carri Manuel on 06-30-2023 Erythrocyte distribution width (RBC) [Ratio] 13.3 % 11.9-15.3 [facility] Glucose [Mass/volume] in Ser um or PlasmaOrdered By: Carri Manuel on 06-30-2023 Glucose [Mass/Vol] 134 mg/dL 70-100 [facility] Comment on above: ADA recommended refe rence rangeRandom Glucose Reference Range is dependent on time and content of last meal. Glucose of more than 200 mg/dL in a nonstressed, ambulatory subject supports the diagnosis of Diabetes Mellitus. Hematocrit Auto (Bld) [Volum e fraction]Ordered By: Carri Manuel on 06-30-2023 Hematocrit (Bld) [Volume fraction] 38.9 % 34.0-46.4 [facility] Hemoglobin [Mass/volume] in BloodOrdered By: Carri Manuel on 06-30-2023 Hemoglobin (Bld) [Mass/Vol] 13.0 g/dL 11.8-15.4 [facility] Leukocytes [#/volume] correc cherie for nucleated erythrocytes in Blood by Automated counOrdered By: Carri Manuel on 06-30-2023 WBC corrected for nucl RBC Auto (Bld) [#/Vol] 15.4 10*3/uL 3.8-11.6 [facility] Lymphocytes Auto (Bld) [#/Vo l]Ordered By: Carri Manuel on 06-30-2023 Lymphocytes (Bld) [#/Vol] 4.3 10*3/uL 1.00-4.8 [facility] Lymphocytes/100 WBC Auto (Bl d)Ordered By: Carri Manuel on 06-30-2023 Lymphocytes/100 WBC (Bld) 27.8 % . [facility] MCH Auto (RBC) [Entitic mass ]Ordered By: Carri Manuel on 06-30-2023 MCH (RBC) [Entitic mass] 30.0 pg 24.7-34.3 [facility] MCHC Auto (RBC) [Mass/Vol]Or dered By: Carri Manuel on 06-30-2023 MCHC (RBC) [Mass/Vol] 33.5 g/dL 32.0-35.0 [facility] MCV Auto (RBC) [Entitic vol] Ordered By: Carri Manuel on 06-30-2023 MCV (RBC) [Entitic vol] 89.6 fL 80-100 [facility] Monocytes Auto (Bld) [#/Vol] Ordered By: Carri Manuel on 06-30-2023 Monocytes (Bld) [#/Vol] 1.2 10*3/uL 0.0-0.8 [facility] Monocytes/100 WBC Auto (Bld) Ordered By: Carri Manuel on 06-30-2023 Monocytes/100 WBC (Bld) 7.5 % . [facility] Neutrophils Auto (Bld) [#/Vo l]Ordered By: Carri Manuel on 06-30-2023 Neutrophils (Bld) [#/Vol] 9.8 10*3/uL 1.8-7.7 [facility] Neutrophils/100 WBC Auto (Bl d)Ordered By: Carri Manuel on 06-30-2023 Neutrophils/100 WBC (Bld) 63.6 % . [facility] No Panel InformationOrdered By: Carri Manuel on 06-30-2023 Estimated GFR (CKD-EPI) > 60.0 mL/Min [facility] Creatinine Clearance (Chem N/A [facility] Nucleated erythrocytes [Pres ence] in Blood by Automated countOrdered By: Carri Manuel on 06-30-2023 Nucleated RBC Auto Ql (Bld) 0.0 /100{WBC} 0-0.5 [facility] Platelet mean volume Auto (B ld) [Entitic vol]Ordered By: Carri Manuel on 06-30-2023 Platelet mean volume (Bld) [Entitic vol] 7.9 fL 6.3-10.7 [facility] Platelets Auto (Bld) [#/Vol] Ordered By: Carri Manuel on 06-30-2023 Platelets (Bld) [#/Vol] 275 10*3/uL 150-450 [facility] Potassium [Moles/volume] in Serum or PlasmaOrdered By: Carri Manuel on 06-30-2023 Potassium [Moles/Vol] 4.3 mmol/L 3.5-5.1 [facility] RBC Auto (Bld) [#/Vol]Ordere d By: Carri Manuel on 06-30-2023 RBC (Bld) [#/Vol] 4.34 10*6/uL 3.60-5.00 [facility] Serum or plasma anion gap de terminationOrdered By: Carri Manuel on 06-30-2023 Anion gap [Moles/Vol] 14.6 mmol/L 6.0-15.0 [facility] Sodium [Moles/volume] in Ser um or PlasmaOrdered By: Carri Manuel on 06-30-2023 Sodium [Moles/Vol] 137 mmol/L 136-145 [facility] Urea nitrogen [Mass/volume] in Serum or PlasmaOrdered By: Carri Manuel on 06-30-2023 Urea nitrogen [Mass/Vol] 11 mg/dL 7-25 [facility] WBC Auto (Bld) [#/Vol]Ordere d By: Carri Manuel on 06-30-2023 WBC (Bld) [#/Vol] 15.4 10*3/uL 3.8-11.6 [facility] HCG ( test) IA.mateus d Ql (U)Ordered By: Kyler Miramontes on 05-05-2023 HCG ( test) Ql (U) Negative [facility] Alanine aminotransferase [En zymatic activity/volume] in Serum or PlasmaOrdered By: Ajit Pettit on 05-04-2023 ALT [Catalytic activity/Vol] 17 U/L 752 [facility] Albumin [Mass/volume] in Ser um or Plasma by Bromocresol green (BCG) dye binding methoOrdered By: Ajit Pettit on 05-04-2023 Albumin BCG dye [Mass/Vol] 4.4 g/dL 3.5-5.7 [facility] Alkaline phosphatase [Enzyma tic activity/volume] in Serum or PlasmaOrdered By: Ajit Pettit on 05-04-2023 ALP [Catalytic activity/Vol] 55 U/L 34-104 [facility] Aspartate aminotransferase [ Enzymatic activity/volume] in Serum or PlasmaOrdered By: Ajit Pettit on 05-04-2023 AST [Catalytic activity/Vol] 18 U/L 13-39 [facility] Basophils Auto (Bld) [#/Vol] Ordered By: Ajit Pettit on 05-04-2023 Basophils (Bld) [#/Vol] 0.1 10*3/uL 0.0-0.2 [facility] Basophils/100 WBC Auto (Bld) Ordered By: Ajit Pettit on 05-04-2023 Basophils/100 WBC (Bld) 0.9 % . [facility] Bilirubin.total [Mass/volume ] in Serum or PlasmaOrdered By: Ajit Pettit on 05-04-2023 Bilirubin [Mass/Vol] 0.3 mg/dL 0.3-1.0 [facility] Calcium [Mass/volume] in Ser um or PlasmaOrdered By: Ajit Pettit on 05-04-2023 Calcium [Mass/Vol] 9.6 mg/dL 8.6-10.3 [facility] Carbon dioxide, total [Moles /volume] in Serum or PlasmaOrdered By: Ajit Pettit on 05-04-2023 CO2 [Moles/Vol] 28.5 mmol/L 21.0-31.0 [facility] Chloride [Moles/volume] in S alissa or PlasmaOrdered By: Ajit Pettit on 05-04-2023 Chloride [Moles/Vol] 100 mmol/L 98-107 [facility] Cholesterol [Mass/volume] in Serum or PlasmaOrdered By: Ajit Pettit on 05-04-2023 Cholesterol [Mass/Vol] 180 mg/dL 140-200 [facility] Comment on above: Chol less than 200 m g/dl low riskChol 201-239 mg/dl borderline riskChol 240 mg/dl and greater high risk Cholesterol in LDL Calc [Mas s/Vol]Ordered By: Ajit Pettit on 05-04-2023 Cholesterol in LDL [Mass/Vol] 81 mg/dL 0-100 [facility] Comment on above: LDL ATP III CLASSIFI CATIONLDL less than 100 mg/dL OptimalLDL 100-129 mg/dL Near or above optimalLDL 130-159 mg/dL Borderline highLDL 160-189 mg/dL HighLDL greater than 189 mg/dL Very high Cholesterol in VLDL Calc [Ma ss/Vol]Ordered By: Ajit Pettit on 05-04-2023 Cholesterol in VLDL [Mass/Vol] 46 mg/dL [facility] Creatinine [Mass/volume] in Serum or PlasmaOrdered By: Ajit Pettit on 05-04-2023 Creatinine [Mass/Vol] 0.65 mg/dL 0.60-1.20 [facility] Eosinophils Auto (Bld) [#/Vo l]Ordered By: Ajit Pettit on 05-04-2023 Eosinophils (Bld) [#/Vol] 0.1 10*3/uL 0.0-0.45 [facility] Eosinophils/100 WBC Auto (Bl d)Ordered By: Ajit Pettit on 05-04-2023 Eosinophils/100 WBC (Bld) 0.5 % . [facility] Erythrocyte distribution wid th Auto (RBC) [Ratio]Ordered By: Ajit Pettit on 05-04-2023 Erythrocyte distribution width (RBC) [Ratio] 13.4 % 11.9-15.3 [facility] Ferritin [Mass/volume] in Se rum or PlasmaOrdered By: Ajit Pettit on 05-04-2023 Ferritin [Mass/Vol] 90.4 ng/mL 11.0-306.8 [facility] Globulin Calc (S) [Mass/Vol] Ordered By: Ajit Pettit on 05-04-2023 Globulin (S) [Mass/Vol] 2.3 g/dL [facility] Glucose [Mass/volume] in Ser um or PlasmaOrdered By: Ajit Pettit on 05-04-2023 Glucose [Mass/Vol] 124 mg/dL 70-100 [facility] Comment on above: ADA recommended refe rence rangeRandom Glucose Reference Range is dependent on time and content of last meal. Glucose of more than 200 mg/dL in a nonstressed, ambulatory subject supports the diagnosis of Diabetes Mellitus. Hematocrit Auto (Bld) [Volum e fraction]Ordered By: Ajit Pettit on 05-04-2023 Hematocrit (Bld) [Volume fraction] 41.7 % 34.0-46.4 [facility] Hemoglobin [Mass/volume] in BloodOrdered By: Ajit Pettit on 05-04-2023 Hemoglobin (Bld) [Mass/Vol] 14.0 g/dL 11.8-15.4 [facility] Iron [Mass/volume] in Serum or PlasmaOrdered By: Ajit Pettit on 05-04-2023 Iron [Mass/Vol] 95 ug/dL 50-212 [facility] Iron binding capacity [Mass/ volume] in Serum or PlasmaOrdered By: Ajit Pettit on 05-04-2023 Iron binding capacity [Mass/Vol] 476 ug/dL 255-450 [facility] Iron saturation [Mass Fracti on] in Serum or PlasmaOrdered By: Ajit Pettit on 05-04-2023 Iron saturation [Mass fraction] 20.0 % 20-50 [facility] Leukocytes [#/volume] correc cherie for nucleated erythrocytes in Blood by Automated counOrdered By: Ajit Pettit on 05-04-2023 WBC corrected for nucl RBC Auto (Bld) [#/Vol] 14.4 10*3/uL 3.8-11.6 [facility] Lymphocytes Auto (Bld) [#/Vo l]Ordered By: Ajit Pettit on 05-04-2023 Lymphocytes (Bld) [#/Vol] 3.2 10*3/uL 1.00-4.8 [facility] Lymphocytes/100 WBC Auto (Bl d)Ordered By: Ajit Pettit on 05-04-2023 Lymphocytes/100 WBC (Bld) 22.3 % . [facility] MCH Auto (RBC) [Entitic mass ]Ordered By: Ajit Pettit on 05-04-2023 MCH (RBC) [Entitic mass] 29.8 pg 24.7-34.3 [facility] MCHC Auto (RBC) [Mass/Vol]Or dered By: Ajit Pettit on 05-04-2023 MCHC (RBC) [Mass/Vol] 33.5 g/dL 32.0-35.0 [facility] MCV Auto (RBC) [Entitic vol] Ordered By: Ajit Pettit on 05-04-2023 MCV (RBC) [Entitic vol] 89.1 fL 80-100 [facility] Monocytes Auto (Bld) [#/Vol] Ordered By: Ajit Pettit on 05-04-2023 Monocytes (Bld) [#/Vol] 0.9 10*3/uL 0.0-0.8 [facility] Monocytes/100 WBC Auto (Bld) Ordered By: Ajit Pettit on 05-04-2023 Monocytes/100 WBC (Bld) 6.3 % . [facility] Neutrophils Auto (Bld) [#/Vo l]Ordered By: Ajit Pettit on 05-04-2023 Neutrophils (Bld) [#/Vol] 10.1 10*3/uL 1.8-7.7 [facility] Neutrophils/100 WBC Auto (Bl d)Ordered By: Ajit Pettit on 05-04-2023 Neutrophils/100 WBC (Bld) 70.0 % . [facility] No Panel InformationOrdered By: Ajit Pettit on 05-04-2023 Estimated GFR (CKD-EPI) > 60.0 mL/Min [facility] Creatinine Clearance (Chem N/A [facility] Nucleated erythrocytes [Pres ence] in Blood by Automated countOrdered By: Ajit Pettit on 05-04-2023 Nucleated RBC Auto Ql (Bld) 0.1 /100{WBC} 0-0.5 [facility] Platelet mean volume Auto (B ld) [Entitic vol]Ordered By: Ajit Pettit on 05-04-2023 Platelet mean volume (Bld) [Entitic vol] 8.4 fL 6.3-10.7 [facility] Platelets Auto (Bld) [#/Vol] Ordered By: Ajit Pettit on 05-04-2023 Platelets (Bld) [#/Vol] 328 10*3/uL 150-450 [facility] Potassium [Moles/volume] in Serum or PlasmaOrdered By: Ajit Pettit on 05-04-2023 Potassium [Moles/Vol] 5.3 mmol/L 3.5-5.1 [facility] Protein [Mass/volume] in Ser um or PlasmaOrdered By: Ajit Pettit on 05-04-2023 Protein [Mass/Vol] 6.7 g/dL 6.4-8.9 [facility] RBC Auto (Bld) [#/Vol]Ordere d By: Ajit Pettit on 05-04-2023 RBC (Bld) [#/Vol] 4.68 10*6/uL 3.60-5.00 [facility] Serum or plasma albumin/glob ulin mass ratioOrdered By: Ajit Pettit on 05-04-2023 Albumin/Globulin [Mass ratio] 1.9 {ratio} [facility] Serum or plasma anion gap de terminationOrdered By: Ajit Pettit on 05-04-2023 Anion gap [Moles/Vol] 11.8 mmol/L 6.0-15.0 [facility] Serum or plasma high density lipoprotein (HDL) cholesterol measurementOrdered By: Ajit Pettit on 05-04-2023 Cholesterol in HDL [Mass/Vol] 52 mg/dL 23-92 [facility] Comment on above: HDL CHOL ATP-III CLA SSIFICATION Cardiovascular RiskHDL > or equal to 60 mg/dL LOWHDL < 40 mg/dL HIGH Serum or plasma total choles terol/high density lipoprotein (HDL) cholesterol mass ratOrdered By: Ajit Pettit on 05-04-2023 Cholesterol.total/Suellen sterol in HDL [Mass ratio] 3.5 {ratio} <5.0 [facility] Sodium [Moles/volume] in Ser um or PlasmaOrdered By: Ajit Pettit on 05-04-2023 Sodium [Moles/Vol] 135 mmol/L 136-145 [facility] Thyrotropin [Units/volume] i n Serum or PlasmaOrdered By: Ajit Pettit on 05-04-2023 TSH Qn 1.97 m[IU]/L 0.45-5.33 [facility] Transferrin [Mass/volume] in Serum or PlasmaOrdered By: Ajit Pettit on 05-04-2023 Transferrin [Mass/Vol] 340 mg/dL 203-362 [facility] Triglyceride [Mass/volume] i n Serum or PlasmaOrdered By: Ajit Pettit on 05-04-2023 Triglyceride [Mass/Vol] 233 mg/dL 0-149 [facility] Comment on above: TRIG ATP III CLASSIF ICATIONTRIG less than 150 mg/dL NormalTRIG 150-199 mg/dL Borderline highTRIG 200-500 mg/dL High TRIG greater than 500 mg/dL Very highStandard traceable to the Center for Disease Conrtrol and Prevention (CDC) test method. Urea nitrogen [Mass/volume] in Serum or PlasmaOrdered By: Ajit Pettit on 05-04-2023 Urea nitrogen [Mass/Vol] 9 mg/dL 7-25 [facility] Urine culture routineOrdered By: Ajit Pettit on 05-04-2023 Bacteria identified Cx Nom (U) Strep. agalactiae Grp B [facility] WBC Auto (Bld) [#/Vol]Ordere d By: Ajit Pettit on 05-04-2023 WBC (Bld) [#/Vol] 14.4 10*3/uL 3.8-11.6 [facility] HCG ( test) IA.mateus d Ql (U)Ordered By: Kyler Miramontes on 04-14-2023 HCG ( test) Ql (U) Negative [facility] CBC AUTO DIFFon 02-15-2023 BASO # 0.1 103/ul Normal 0.0-0.1 [facility] Comment on above: Performed By: #### C BC #### [facility] [address] [place] [address] Dr. Vito Grimm Basophils/100 WBC (Bld) 0.5 % Normal 0.2-2.0 [facility] Comment on above: Performed By: #### C BC #### [facility] [address] [place] [address] Dr. Vito Grimm EO # 0.1 103/ul Normal 0.0-0.7 [facility] Comment on above: Performed By: #### C BC #### [facility] [address] [place] [address] Dr. Vito Grimm Eosinophils/100 WBC (Bld) 0.8 % Critically low 0.9-7.0 [facility] Comment on above: Performed By: #### C BC #### [facility] [address] [place] [address] Dr. Vito Grimm Erythrocyte distribution width (RBC) [Ratio] 13.1 % Normal 11.0-15.0 [facility] Comment on above: Performed By: #### C BC #### [facility] [address] [place] [address] Dr. Vito Grimm Hematocrit (Bld) [Volume fraction] 41.2 % Normal 36.0-48.0 [facility] Comment on above: Performed By: #### C BC #### [facility] [address] [place] [address] Dr. Vito Grimm Hemoglobin (Bld) [Mass/Vol] 13.4 g/dL Normal 12.0-16.0 [facility] Comment on above: Performed By: #### C BC #### [facility] [address] [place] [address] Dr. Vito Grimm IG # 0.05 10e3/ul Critically high 0.00-0.03 [facility] Comment on above: Performed By: #### C BC #### [facility] [address] [place] [address] Dr. Vito Grimm IG % 0.4 % Normal 0.0-0.5 [facility] Comment on above: Performed By: #### C BC #### [facility] [address] [place] [address] Dr. Vito Grimm LYMPH # 4.8 103/ul Critically high 1.2-3.8 [facility] Comment on above: Performed By: #### C BC #### [facility] [address] [place] [address] Dr. Vito Grimm Lymphocytes/100 WBC (Bld) 38.8 % Normal 20.5-60.0 [facility] Comment on above: Performed By: #### C BC #### [facility] [address] [place] [address] Dr. Vito Grimm MANUAL DIFF REQ NO Normal [facility] Comment on above: Performed By: #### C BC #### [facility] [address] [place] [address] Dr. Vito Grimm MCH (RBC) [Entitic mass] 29.9 pg Normal 26.7-34.0 [facility] Comment on above: Performed By: #### C BC #### [facility] [address] [place] [address] Dr. Vito Grimm MCHC (RBC) [Mass/Vol] 32.5 g/dL Normal 29.9-35.2 [facility] Comment on above: Performed By: #### C BC #### [facility] [address] [place] [address] Dr. Vito Grimm MCV (RBC) [Entitic vol] 92.0 fL Normal 81.0-99.0 [facility] Comment on above: Performed By: #### C BC #### [facility] [address] [place] [address] Dr. Vito Grimm MONO # 0.9 103/ul Critically high 0.3-0.8 [facility] Comment on above: Performed By: #### C BC #### [facility] [address] [place] [address] Dr. Vito Grimm Monocytes/100 WBC (Bld) 7.4 % Normal 1.7-12.0 [facility] Comment on above: Performed By: #### C BC #### [facility] [address] [place] [address] Dr. Vito Grimm NEUT # 6.5 103/ul Normal 1.4-6.5 [facility] Comment on above: Performed By: #### C BC #### [facility] [facility] [address] [place] [address] Dr. Vito Grimm Neutrophils/100 WBC (Bld) 52.1 % Normal 43.0-75.0 [facility] Comment on above: Performed By: #### C BC #### [facility] [address] [place] [address] Dr. Vito Grimm Platelet mean volume (Bld) [Entitic vol] 10.0 fL Normal 9.5-13.5 [facility] Comment on above: Performed By: #### C BC #### [facility] [address] [place] [address] Dr. Vito Grimm PLT 298 103/ul Normal 150-450 [facility] Comment on above: Performed By: #### C BC #### [facility] [address] [place] [address] Dr. Vito Grimm RBC 4.48 106/ul Normal 4.20-5.40 [facility] Comment on above: Performed By: #### C BC #### [facility] [address] [place] [address] Dr. Vito Grimm WBC 12.4 103/ul Critically high 4.0-11.0 [facility] Comment on above: Performed By: #### C BC #### [facility] [address] [place] [address] Dr. Vito Grimm DEPAKENE/ VALPROIC ACIDon DEPAKENE 49.4 ug/ml Critically low 50.0-100.0 [facility] Comment on above: Performed By: #### C MP, HSTROPN #### [facility] [address] [place] [address] Dr. Vito Grimm LACTATE/LACTIC ACIDon 2022 Lactate [Moles/Vol] 2.7 mmol/L Critically high 0.4-2.0 [facility] Comment on above: Performed By: #### L ACT #### [facility] [address] [place] [address] Dr. Vito Grimm PROF CHEM 8 (BAS METB)on Anion gap [Moles/Vol] 17.6 mmol/L Normal [facility] Comment on above: Performed By: #### B MP #### [facility] [address] [place] [address] Dr. Vito Grimm Calcium [Mass/Vol] 8.7 mg/dL Normal 8.5-10.1 [facility] Comment on above: Performed By: #### B MP #### [facility] [address] [place] [address] Dr. Vito Grimm Chloride [Moles/Vol] 99 mmol/L Normal 98-107 [facility] Comment on above: Performed By: #### B MP #### [facility] [address] [place] [address] Dr. Vito Grimm CO2 [Moles/Vol] 23.5 mmol/L Normal 21.0-32.0 [facility] Comment on above: Performed By: #### B MP #### [facility] [address] [place] [address] Dr. Vito Grimm Creatinine [Mass/Vol] 0.75 mg/dL Normal 0.55-1.02 [facility] Comment on above: Performed By: #### B MP #### [facility] [address] [place] [address] Dr. Vito Grimm EGFR-AF CYPRIOT >60 Normal >=60 [facility] Comment on above: Performed By: #### B MP #### [facility] [address] [place] [address] Dr. Vito Grimm EGFR-NON AF CYPRIOT >60 Normal >=60 [facility] Comment on above: Performed By: #### B MP #### [facility] [address] [address] [address] Vito Grimm Glucose [Mass/Vol] 273 mg/dL Critically high 74-106 [facility] Comment on above: Performed By: #### B MP #### [facility] [address] [address] [address] Vito Grimm Potassium [Moles/Vol] 4.1 mmol/L Normal 3.5-5.1 [facility] Comment on above: Performed By: #### B MP #### [facility] [address] [address] [address] Vito Grimm Sodium [Moles/Vol] 136 mmol/L Normal 136-145 [facility] Comment on above: Performed By: #### B MP #### [facility] [address] [address] [address] Vito Grimm Urea nitrogen [Mass/Vol] 6.0 mg/dL Critically low 7.0-18.0 [facility] Comment on above: Performed By: #### B MP #### [facility] [address] [place] [address] Dr. Vito Grimm Urea nitrogen/Creatinine [Mass ratio] 8.0 mg/mg Normal [facility] Comment on above: Performed By: #### B MP #### [facility] [address] [address] [address] Vito Grimm Alanine aminotransferase [En zymatic activity/volume] in Serum or PlasmaOrdered By: Ajit Pettit on 02-09-2023 ALT [Catalytic activity/Vol] 29 U/L 7 [facility] Albumin [Mass/volume] in Ser um or Plasma by Bromocresol green (BCG) dye binding methoOrdered By: Ajit Pettit on 02-09-2023 Albumin BCG dye [Mass/Vol] 4.4 g/dL 3.5-5.7 [facility] Alkaline phosphatase [Enzyma tic activity/volume] in Serum or PlasmaOrdered By: Ajit Pettit on 02-09-2023 ALP [Catalytic activity/Vol] 72 U/L 34-104 [facility] Aspartate aminotransferase [ Enzymatic activity/volume] in Serum or PlasmaOrdered By: Ajit Pettit on 02-09-2023 AST [Catalytic activity/Vol] 27 U/L 13-39 [facility] Basophils Auto (Bld) [#/Vol] Ordered By: Ajit Pettit on 02-09-2023 Basophils (Bld) [#/Vol] 0.1 10*3/uL 0.0-0.2 [facility] Basophils/100 WBC Auto (Bld) Ordered By: Ajit Pettit on 02-09-2023 Basophils/100 WBC (Bld) 0.6 % . [facility] Bilirubin.total [Mass/volume ] in Serum or PlasmaOrdered By: Ajit Pettit on 02-09-2023 Bilirubin [Mass/Vol] 0.3 mg/dL 0.3-1.0 [facility] Calcium [Mass/volume] in Ser um or PlasmaOrdered By: Ajit Pettit on 02-09-2023 Calcium [Mass/Vol] 9.3 mg/dL 8.6-10.3 [facility] Carbon dioxide, total [Moles /volume] in Serum or PlasmaOrdered By: Ajit Pettit on 02-09-2023 CO2 [Moles/Vol] 23.8 mmol/L 21.0-31.0 [facility] Chloride [Moles/volume] in S alissa or PlasmaOrdered By: Ajit Pettit on 02-09-2023 Chloride [Moles/Vol] 101 mmol/L 98-107 [facility] Cholesterol [Mass/volume] in Serum or PlasmaOrdered By: Ajit Pettit on 02-09-2023 Cholesterol [Mass/Vol] 166 mg/dL 140-200 [facility] Comment on above: Chol less than 200 m g/dl low riskChol 201-239 mg/dl borderline riskChol 240 mg/dl and greater high risk Cholesterol in LDL Calc [Mas s/Vol]Ordered By: Ajit Pettit on 02-09-2023 Cholesterol in LDL [Mass/Vol] TNP [facility] Comment on above: Test not performed Cholesterol in LDL [Mass/vol ume] in Serum or PlasmaOrdered By: Ajti Pettit on 02-09-2023 Cholesterol in LDL [Mass/Vol] 61 mg/dL 0-100 [facility] Comment on above: LDL ATP III CLASSIFI CATIONLDL less than 100 mg/dL OptimalLDL 100-129 mg/dL Near or above optimalLDL 130-159 mg/dL Borderline highLDL 160-189 mg/dL HighLDL greater than 189 mg/dL Very high Cholesterol in VLDL Calc [Ma ss/Vol]Ordered By: Ajit Pettit on 02-09-2023 Cholesterol in VLDL [Mass/Vol] 97 mg/dL [facility] Creatinine [Mass/volume] in Serum or PlasmaOrdered By: Ajit Pettit on 02-09-2023 Creatinine [Mass/Vol] 0.75 mg/dL 0.60-1.20 [facility] Eosinophils Auto (Bld) [#/Vo l]Ordered By: Ajit Pettit on 02-09-2023 Eosinophils (Bld) [#/Vol] 0.1 10*3/uL 0.0-0.45 [facility] Eosinophils/100 WBC Auto (Bl d)Ordered By: Ajit Pettit on 02-09-2023 Eosinophils/100 WBC (Bld) 0.7 % . [facility] Erythrocyte distribution wid th Auto (RBC) [Ratio]Ordered By: Ajit Pettit on 02-09-2023 Erythrocyte distribution width (RBC) [Ratio] 13.1 % 11.9-15.3 [facility] Globulin Calc (S) [Mass/Vol] Ordered By: Ajit Pettit on 02-09-2023 Globulin (S) [Mass/Vol] 2.3 g/dL [facility] Glucose [Mass/volume] in Ser um or PlasmaOrdered By: Ajit Pettit on 02-09-2023 Glucose [Mass/Vol] 286 mg/dL 70-100 [facility] Comment on above: ADA recommended refe rence rangeRandom Glucose Reference Range is dependent on time and content of last meal. Glucose of more than 200 mg/dL in a nonstressed, ambulatory subject supports the diagnosis of Diabetes Mellitus. Hematocrit Auto (Bld) [Volum e fraction]Ordered By: Ajit Pettit on 02-09-2023 Hematocrit (Bld) [Volume fraction] 39.7 % 34.0-46.4 [facility] Hemoglobin [Mass/volume] in BloodOrdered By: Ajit Pettit on 02-09-2023 Hemoglobin (Bld) [Mass/Vol] 13.1 g/dL 11.8-15.4 [facility] Leukocytes [#/volume] correc cherie for nucleated erythrocytes in Blood by Automated counOrdered By: Ajit Pettit on 02-09-2023 WBC corrected for nucl RBC Auto (Bld) [#/Vol] 13.2 10*3/uL 3.8-11.6 [facility] Lymphocytes Auto (Bld) [#/Vo l]Ordered By: Ajit Pettit on 02-09-2023 Lymphocytes (Bld) [#/Vol] 3.6 10*3/uL 1.00-4.8 [facility] Lymphocytes/100 WBC Auto (Bl d)Ordered By: Ajit Pettit on 02-09-2023 Lymphocytes/100 WBC (Bld) 27.3 % . [facility] MCH Auto (RBC) [Entitic mass ]Ordered By: Ajit Pettit on 02-09-2023 MCH (RBC) [Entitic mass] 29.5 pg 24.7-34.3 [facility] MCHC Auto (RBC) [Mass/Vol]Or dered By: Ajit Pettit on 02-09-2023 MCHC (RBC) [Mass/Vol] 33.1 g/dL 32.0-35.0 [facility] MCV Auto (RBC) [Entitic vol] Ordered By: Ajit Pettit on 02-09-2023 MCV (RBC) [Entitic vol] 89.3 fL 80-100 [facility] Monocytes Auto (Bld) [#/Vol] Ordered By: Ajit Pettit on 02-09-2023 Monocytes (Bld) [#/Vol] 0.9 10*3/uL 0.0-0.8 [facility] Monocytes/100 WBC Auto (Bld) Ordered By: Ajit Pettit on 02-09-2023 Monocytes/100 WBC (Bld) 7.0 % . [facility] Neutrophils Auto (Bld) [#/Vo l]Ordered By: Ajit Pettit on 02-09-2023 Neutrophils (Bld) [#/Vol] 8.5 10*3/uL 1.8-7.7 [facility] Neutrophils/100 WBC Auto (Bl d)Ordered By: Ajit Pettit on 02-09-2023 Neutrophils/100 WBC (Bld) 64.4 % . [facility] No Panel InformationOrdered By: Ajit Pettit on 02-09-2023 Estimated GFR (CKD-EPI) > 60.0 mL/Min [facility] Creatinine Clearance (Chem N/A [facility] Nucleated erythrocytes [Pres ence] in Blood by Automated countOrdered By: Ajit Pettit on 02-09-2023 Nucleated RBC Auto Ql (Bld) 0.0 /100{WBC} 0-0.5 [facility] Platelet mean volume Auto (B ld) [Entitic vol]Ordered By: Ajit Pettit on 02-09-2023 Platelet mean volume (Bld) [Entitic vol] 8.8 fL 6.3-10.7 [facility] Platelets Auto (Bld) [#/Vol] Ordered By: Ajit Pettit on 02-09-2023 Platelets (Bld) [#/Vol] 295 10*3/uL 150-450 [facility] Potassium [Moles/volume] in Serum or PlasmaOrdered By: Ajit Pettit on 02-09-2023 Potassium [Moles/Vol] 4.5 mmol/L 3.5-5.1 [facility] Protein [Mass/volume] in Ser um or PlasmaOrdered By: Ajit Pettit on 02-09-2023 Protein [Mass/Vol] 6.7 g/dL 6.4-8.9 [facility] RBC Auto (Bld) [#/Vol]Ordere d By: Ajit Pettit on 02-09-2023 RBC (Bld) [#/Vol] 4.44 10*6/uL 3.60-5.00 [facility] Serum or plasma albumin/glob ulin mass ratioOrdered By: Ajit Pettit on 02-09-2023 Albumin/Globulin [Mass ratio] 1.9 {ratio} [facility] Serum or plasma anion gap de terminationOrdered By: Ajit Pettit on 02-09-2023 Anion gap [Moles/Vol] 15.7 mmol/L 6.0-15.0 [facility] Serum or plasma high density lipoprotein (HDL) cholesterol measurementOrdered By: Ajit Pettit on 02-09-2023 Cholesterol in HDL [Mass/Vol] 41 mg/dL 35-85 [facility] Comment on above: HDL CHOL ATP-III CLA SSIFICATION Cardiovascular RiskHDL > or equal to 60 mg/dL LOWHDL < 40 mg/dL HIGH Serum or plasma total choles terol/high density lipoprotein (HDL) cholesterol mass ratOrdered By: Ajit Pettit on 02-09-2023 Cholesterol.total/Suellen sterol in HDL [Mass ratio] 4.0 {ratio} <5.0 [facility] Sodium [Moles/volume] in Ser um or PlasmaOrdered By: Ajit Pettit on 02-09-2023 Sodium [Moles/Vol] 136 mmol/L 136-145 [facility] Thyrotropin [Units/volume] i n Serum or PlasmaOrdered By: Ajit Pettit on 02-09-2023 TSH Qn 2.98 m[IU]/L 0.45-5.33 [facility] Triglyceride [Mass/volume] i n Serum or PlasmaOrdered By: Ajit Pettit on 02-09-2023 Triglyceride [Mass/Vol] 485 mg/dL 0-149 [facility] Comment on above: If the triglyceride [...] 02-09-2023 Urea nitrogen [Mass/Vol] 10 mg/dL 04-27 [facility] Urine culture routineOrdered By: Ajit Pettit on 02-09-2023 Bacteria identified Cx Nom (U) 2 Days [facility] WBC Auto (Bld) [#/Vol]Ordere d By: Ajit Pettit on 02-09-2023 WBC (Bld) [#/Vol] 13.2 10*3/uL 3.8-11.6 [facility] ACETONE SERUMon 01-29-2023 ACETONE Negative Normal NEGATIVE [facility] Comment on above: Performed By: #### A CETON #### [facility] [address] [place] [address] Dr. Vito Grimm CBC AUTO DIFFon 01-29-2023 BASO # 0.1 103/ul Normal 0.0-0.1 [facility] Comment on above: Performed By: #### C BC #### [facility] [address] [place] [address] Dr. Vito Grimm Basophils/100 WBC (Bld) 0.5 % Normal 0.2-2.0 [facility] Comment on above: Performed By: #### C BC #### [facility] [address] [place] [address] Dr. Vito Grimm EO # 0.1 103/ul Normal 0.0-0.7 [facility] Comment on above: Performed By: #### C BC #### [facility] [address] [place] [address] Dr. Vito Grimm Eosinophils/100 WBC (Bld) 0.7 % Critically low 0.9-7.0 [facility] Comment on above: Performed By: #### C BC #### [facility] [address] [place] [address] Dr. Vito Grimm Erythrocyte distribution width (RBC) [Ratio] 12.9 % Normal 11.0-15.0 [facility] Comment on above: Performed By: #### C BC #### [facility] [address] [place] [address] Dr. Vito Grimm Hematocrit (Bld) [Volume fraction] 39.0 % Normal 36.0-48.0 [facility] Comment on above: Performed By: #### C BC #### [facility] [address] [place] [address] Dr. Vito Grimm Hemoglobin (Bld) [Mass/Vol] 13.1 g/dL Normal 12.0-16.0 [facility] Comment on above: Performed By: #### C BC #### [facility] [address] [place] [address] Dr. Vito Grimm IG # 0.11 10e3/ul Critically high 0.00-0.03 [facility] Comment on above: Performed By: #### C BC #### [facility] [address] [place] [address] Dr. Vito Grimm IG % 0.8 % Critically high 0.0-0.5 [facility] Comment on above: Performed By: #### C BC #### [facility] [address] [place] [address] Dr. Vito Grimm LYMPH # 4.6 103/ul Critically high 1.2-3.8 [facility] Comment on above: Performed By: #### C BC #### [facility] [address] [place] [address] Dr. Vito Grimm Lymphocytes/100 WBC (Bld) 34.4 % Normal 20.5-60.0 [facility] Comment on above: Performed By: #### C BC #### [facility] [address] [place] [address] Dr. Vito Grimm MANUAL DIFF REQ NO Normal [facility] Comment on above: Performed By: #### C BC #### [facility] [address] [place] [address] Dr. Vito Grimm MCH (RBC) [Entitic mass] 29.9 pg Normal 26.7-34.0 [facility] Comment on above: Performed By: #### C BC #### [facility] [address] [place] [address] Dr. Vito Grimm MCHC (RBC) [Mass/Vol] 33.6 g/dL Normal 29.9-35.2 [facility] Comment on above: Performed By: #### C BC #### [facility] [address] [place] [address] Dr. Vito Grimm MCV (RBC) [Entitic vol] 89.0 fL Normal 81.0-99.0 [facility] Comment on above: Performed By: #### C BC #### [facility] [address] [place] [address] Dr. Vito Grimm MONO # 1.0 103/ul Critically high 0.3-0.8 [facility] Comment on above: Performed By: #### C BC #### [facility] [address] [place] [address] Dr. Vito Grimm Monocytes/100 WBC (Bld) 7.3 % Normal 1.7-12.0 [facility] Comment on above: Performed By: #### C BC #### [facility] [address] [place] [address] Dr. Vito Grimm NEUT # 7.5 103/ul Critically high 1.4-6.5 [facility] Comment on above: Performed By: #### C BC #### [facility] [address] [place] [address] Dr. Vito Grimm Neutrophils/100 WBC (Bld) 56.3 % Normal 43.0-75.0 [facility] Comment on above: Performed By: #### C BC #### [facility] [address] [place] [address] Dr. Vito Grimm Platelet mean volume (Bld) [Entitic vol] 9.6 fL Normal 9.5-13.5 [facility] Comment on above: Performed By: #### C BC #### [facility] [address] [place] [address] Dr. Vito Grimm PLT 272 103/ul Normal 150-450 [facility] Comment on above: Performed By: #### C BC #### [facility] [address] [place] [address] Dr. Vito Grimm RBC 4.38 106/ul Normal 4.20-5.40 [facility] Comment on above: Performed By: #### C BC #### [facility] [address] [place] [address] Dr. Vito Grimm WBC 13.4 103/ul Critically high 4.0-11.0 [facility] Comment on above: Performed By: #### C BC #### [facility] [address] [place] [address] Dr. Vito Grimm ER URINE PROFILEon 3 Bilirubin Ql (U) Negative Normal NEGATIVE [facility] Comment on above: Performed By: #### E RUR #### [facility] [address] [place] [address] Dr. Vito Grimm Clarity (U) SL CLOUDY Abnormal CLEAR [facility] Comment on above: Performed By: #### E RUR #### [facility] [address] [place] [address] Dr. Vito Grimm Color (U) LT. YELLOW Normal YELLOW [facility] Comment on above: Performed By: #### E RUR #### [facility] [address] [place] [address] Dr. Vito ELIZABETH A micrscopic examina tion will be performed if indicated. Normal [facility] Comment on above: Performed By: #### E RUR #### [facility] [address] [place] [address] Dr. Vito Grimm Glucose Ql (U) >1000 Abnormal NEGATIVE [facility] Comment on above: Performed By: #### E RUR #### [facility] [address] [place] [address] Dr. Vito Grimm Hemoglobin Ql (U) Negative Normal NEGATIVE [facility] Comment on above: Performed By: #### E RUR #### [facility] [address] [place] [address] Dr. Vito Grimm Ketones Ql (U) Negative Normal NEGATIVE [facility] Comment on above: Performed By: #### E RUR #### [facility] [address] [place] [address] Dr. Vito Grimm LEUKOCYTES Negative Normal NEGATIVE [facility] Comment on above: Performed By: #### E RUR #### [facility] [address] [place] [address] Dr. Vito Grimm Nitrite Ql (U) Negative Normal NEGATIVE [facility] Comment on above: Performed By: #### E RUR #### [facility] [address] [place] [address] Dr. Vito Grimm pH (U) 5.5 [pH] Normal 5-9 [facility] Comment on above: Performed By: #### E RUR #### [facility] [address] [place] [address] Dr. Vito Grimm SPEC GRAVITY 1.010 Normal 1.005-<=1. 025 [facility] Comment on above: Performed By: #### E RUR #### [facility] [address] [place] [address] Dr. Vito Grimm UA PROTEIN Negative Normal NEGATIVE/ TRACE [facility] Comment on above: Performed By: #### E RUR #### [facility] [address] [place] [address] Dr. Vito Grimm UR MICRO IND NOT INDICATED Normal [facility] Comment on above: Performed By: #### E RUR #### [facility] [address] [place] [address] Dr. Vito Grimm Urobilinogen Qn (U) 0.2 {Helen'U}/dL Normal 0.2 - 1. 0 [facility] Comment on above: Performed By: #### E RUR #### [facility] [address] [place] [address] Dr. Vito Grimm POINT OF CARE GLUCOSEon 01-03 Glucose [Mass/Vol] 279 mg/dL Critically high 74-106 [facility] Comment on above: Performed By: #### P OCGLUC #### [facility] [address] [place] [address] Dr. Vito Grimm PROF 14(COMP METB)on 023 Albumin [Mass/Vol] 3.5 g/dL Normal 3.4-5.0 [facility] Comment on above: Performed By: #### C MATHIEU, HSTROPN #### [facility] [address] [address] [address] Vito Grimm Albumin/Globulin [Mass ratio] 1.0 {ratio} Normal [facility] Comment on above: Performed By: #### C MATHIEU, HSTROPN #### [facility] [address] [address] [address] Vito Grimm ALP [Catalytic activity/Vol] 85 U/L Normal 46-116 [facility] Comment on above: Performed By: #### C MATHIEU, HSTROPN #### [facility] [address] [place] [address] Dr. Vito Grimm ALT [Catalytic activity/Vol] 28 U/L Normal 14-59 [facility] Comment on above: Performed By: #### C MATHIEU, HSTROPN #### [facility] [address] [place] [address] Dr. Vito Grimm Anion gap [Moles/Vol] 15.9 mmol/L Normal [facility] Comment on above: Performed By: #### C MATHIEU, HSTROPN #### [facility] [address] [place] [address] Dr. Vito Grimm AST [Catalytic activity/Vol] 16 U/L Normal 15-37 [facility] Comment on above: Performed By: #### C MATHIEU, HSTROPN #### [facility] [address] [place] [address] Dr. Vito Grimm Bilirubin [Mass/Vol] 0.2 mg/dL Normal 0.2-1.0 [facility] Comment on above: Performed By: #### C MATHIEU, HSTROPN #### [facility] [address] [place] [address] Dr. Vito Grimm Calcium [Mass/Vol] 8.8 mg/dL Normal 8.5-10.1 [facility] Comment on above: Performed By: #### C MATHIEU, HSTROPN #### [facility] [address] [address] [address] Vito Grimm Chloride [Moles/Vol] 96 mmol/L Critically low 98-107 [facility] Comment on above: Performed By: #### C MP, HSTROPN #### [facility] [address] [address] [address] Vito Grimm CO2 [Moles/Vol] 24.1 mmol/L Normal 21.0-32.0 [facility] Comment on above: Performed By: #### C MP, HSTROPN #### [facility] [address] [address] [address] Vito Grimm Creatinine [Mass/Vol] 0.85 mg/dL Normal 0.55-1.02 [facility] Comment on above: Performed By: #### C MP, HSTROPN #### [facility] [address] [place] [address] Dr. Vito Grimm EGFR-AF CYPRIOT >60 Normal >=60 [facility] Comment on above: Performed By: #### C MP, HSTROPN #### [facility] [address] [place] [address] Dr. Vito Grimm EGFR-NON AF CYPRIOT >60 Normal >=60 [facility] [facility] Comment on above: Performed By: #### C MP, HSTROPN #### [facility] [address] [place] [address] Dr. Vito Grimm Globulin (S) [Mass/Vol] 3.6 g/dL Normal [facility] Comment on above: Performed By: #### C MP, HSTROPN #### [facility] [address] [place] [address] Dr. Vito Grimm Glucose [Mass/Vol] 350 mg/dL Critically high 74-106 [facility] Comment on above: Performed By: #### C MP, HSTROPN #### [facility] [address] [place] [address] Dr. Vito Grimm Potassium [Moles/Vol] 4.0 mmol/L Normal 3.5-5.1 [facility] Comment on above: Performed By: #### C MP, HSTROPN #### [facility] [address] [place] [address] Dr. Vito Grimm Protein [Mass/Vol] 7.1 g/dL Normal 6.4-8.2 [facility] Comment on above: Performed By: #### C MP, HSTROPN #### [facility] [address] [place] [address] Dr. Vito Grimm Sodium [Moles/Vol] 132 mmol/L Critically low 136-145 [facility] Comment on above: Performed By: #### C MP, HSTROPN #### [facility] [address] [place] [address] Dr. Vito Grimm Urea nitrogen [Mass/Vol] 10.0 mg/dL Normal 7.0-18.0 [facility] Comment on above: Performed By: #### C MP, HSTROPN #### [facility] [address] [place] [address] Dr. Vito Grimm Urea nitrogen/Creatinine [Mass ratio] 11.8 mg/mg Normal [facility] Comment on above: Performed By: #### C MP, HSTROPN #### [facility] [address] [place] [address] Dr. Vito Grimm TROPONIN, HIGH SENSITIVITYon 01-29-2023 HSTROP <4.0 Normal 4.0-51.3 [facility] Comment on above: Result Comment: CUT- OFF POINTS HAVE BEEN ESTABLISHED BASED ON THE FOURTH UNIVERSAL DEFINITIONS OF MYOCARDIAL INFARCTION. THE UPPER REFERENCE LIMIT (URL) OF TROPONIN, DEFINED THE 99TH PERCENTILE OF cTnI DISTRIBUTION IN A REFERENCE POPULATION, HAS BEEN CONFIRMED THE DECISION THRESHOLD FOR MD DIAGNOSIS. Performed By: #### C MP, HSTROPN #### [facility] [address] [place] [address] Dr. Vito Grimm HCG ( test) Funmi jackson Ql (U)Ordered By: Kyler Miramontes on 11-18-2022 HCG ( test) Ql (U) Negative [facility] CBC AUTO DIFFon 11-12-2022 BASO # 0.1 103/ul Normal 0.0-0.1 [facility] Comment on above: Performed By: #### C MATHIEU, HSTROPN #### [facility] [address] [place] [address] Dr. Vito Grimm Basophils/100 WBC (Bld) 0.6 % Normal 0.2-2.0 [facility] Comment on above: Performed By: #### C MP, HSTROPN #### [facility] [address] [place] [address] Dr. Vito Grimm EO # 0.2 103/ul Normal 0.0-0.7 [facility] Comment on above: Performed By: #### C MATHIEU, HSTROPN #### [facility] [address] [place] [address] Dr. Vito Grimm Eosinophils/100 WBC (Bld) 1.1 % Normal 0.9-7.0 [facility] Comment on above: Performed By: #### C MATHIEU HSTROPN #### [facility] [address] [place] [address] Dr. Vito Grimm Erythrocyte distribution width (RBC) [Ratio] 12.6 % Normal 11.0-15.0 [facility] Comment on above: Performed By: #### C MATHIEU HSTROPN #### [facility] [address] [place] [address] Dr. Vito Grimm Hematocrit (Bld) [Volume fraction] 39.7 % Normal 36.0-48.0 [facility] Comment on above: Performed By: #### C MATHIEU, HSTROPN #### [facility] [address] [place] [address] Dr. Vito Grimm Hemoglobin (Bld) [Mass/Vol] 12.9 g/dL Normal 12.0-16.0 [facility] Comment on above: Performed By: #### C MATHIEU, HSTROPN #### [facility] [address] [place] [address] Dr. Vito Grimm IG # 0.07 10e3/ul Critically high 0.00-0.03 [facility] Comment on above: Performed By: #### C MATHIEU, HSTROPN #### [facility] [address] [address] [address] Vito Grimm IG % 0.5 % Normal 0.0-0.5 [facility] Comment on above: Performed By: #### C MP, HSTROPN #### [facility] [address] [place] [address] Dr. Vito Grimm LYMPH # 5.3 103/ul Critically high 1.2-3.8 [facility] Comment on above: Performed By: #### C MP, HSTROPN #### [facility] [address] [place] [address] Dr. Vito Grimm Lymphocytes/100 WBC (Bld) 38.4 % Normal 20.5-60.0 [facility] Comment on above: Performed By: #### C MP, HSTROPN #### [facility] [address] [place] [address] Dr. Vito Grimm MANUAL DIFF REQ NO Normal [facility] Comment on above: Performed By: #### C MP, HSTROPN #### [facility] [address] [place] [address] Dr. Vito Grimm MCH (RBC) [Entitic mass] 29.7 pg Normal 26.7-34.0 [facility] Comment on above: Performed By: #### C MP, HSTROPN #### [facility] [address] [place] [address] Dr. Vito Grimm MCHC (RBC) [Mass/Vol] 32.5 g/dL Normal 29.9-35.2 [facility] Comment on above: Performed By: #### C MP, HSTROPN #### [facility] [address] [place] [address] Dr. Vito Grimm MCV (RBC) [Entitic vol] 91.5 fL Normal 81.0-99.0 [facility] Comment on above: Performed By: #### C MP, HSTROPN #### [facility] [address] [place] [address] Dr. Vito Grimm MONO # 1.0 103/ul Critically high 0.3-0.8 [facility] Comment on above: Performed By: #### C MATHIEU, HSTROPN #### [facility] [address] [place] [address] Dr. Vito Grimm Monocytes/100 WBC (Bld) 7.3 % Normal 1.7-12.0 [facility] Comment on above: Performed By: #### C MP, HSTROPN #### [facility] [address] [place] [address] Dr. Vito Grimm NEUT # 7.2 103/ul Critically high 1.4-6.5 [facility] Comment on above: Performed By: #### C MATHIEU, HSTROPN #### [facility] [address] [place] [address] Dr. Vito Grimm Neutrophils/100 WBC (Bld) 52.1 % Normal 43.0-75.0 [facility] Comment on above: Performed By: #### C MATHIEU, HSTROPN #### [facility] [address] [place] [address] Dr. Vito Grimm Platelet mean volume (Bld) [Entitic vol] 9.4 fL Critically low 9.5-13.5 [facility] Comment on above: Performed By: #### C MATHIEU, HSTROPN #### [facility] [address] [place] [address] Dr. Vito Grimm PLT 297 103/ul Normal 150-450 [facility] Comment on above: Performed By: #### C MATHIEU, HSTROPN #### [facility] [address] [place] [address] Dr. Vito Grimm RBC 4.34 106/ul Normal 4.20-5.40 [facility] Comment on above: Performed By: #### C MATHIEU, HSTROPN #### [facility] [address] [place] [address] Dr. Vito Grimm WBC 13.9 103/ul Critically high 4.0-11.0 [facility] Comment on above: Performed By: #### C MATHIEU, HSTROPN #### [facility] [address] [place] [address] Dr. Vito Grimm DEPAKENE/ VALPROIC ACIDon DEPAKENE 55.9 ug/ml Normal 50.0-100.0 [facility] Comment on above: Performed By: #### V ALP #### [facility] [address] [place] [address] Dr. Vito Grimm LACTATE/LACTIC ACIDon 2022 Lactate [Moles/Vol] 3.6 mmol/L Critically high 0.4-1.9 [facility] Comment on above: Performed By: #### C MATHIEU HSTROPN #### [facility] [address] [place] [address] Dr. Vito Grimm PROF 14(COMP METB)on 023 Albumin [Mass/Vol] 3.6 g/dL Normal 3.4-5.0 [facility] Comment on above: Performed By: #### C MATHIEU HSTROPN #### [facility] [address] [place] [address] Dr. Vito Grimm Albumin/Globulin [Mass ratio] 1.1 {ratio} Normal [facility] Comment on above: Performed By: #### C MATHIEU HSTROPN #### [facility] [address] [place] [address] Dr. Vito Grimm ALP [Catalytic activity/Vol] 57 U/L Normal 46-116 [facility] Comment on above: Performed By: #### C MATHIEU HSTROPN #### [facility] [address] [place] [address] Dr. Vito Grimm ALT [Catalytic activity/Vol] 23 U/L Normal 14-59 [facility] Comment on above: Performed By: #### C MATHIEU HSTROPN #### [facility] [address] [place] [address] Dr. Vito Grimm Anion gap [Moles/Vol] 17.0 mmol/L Normal [facility] Comment on above: Performed By: #### C MATHIEU HSTROPN #### [facility] [address] [place] [address] Dr. Vito Grimm AST [Catalytic activity/Vol] 16 U/L Normal 15-37 [facility] Comment on above: Performed By: #### C MATHIEU, HSTROPN #### [facility] [address] [address] [address] Vito Grimm Bilirubin [Mass/Vol] 0.1 mg/dL Critically low 0.2-1.0 [facility] Comment on above: Performed By: #### C MATHIEU, HSTROPN #### [facility] [address] [place] [address] Dr. Vito Grimm Calcium [Mass/Vol] 8.8 mg/dL Normal 8.5-10.1 [facility] Comment on above: Performed By: #### C MATHIEU, HSTROPN #### [facility] [address] [place] [address] Dr. Vito Grimm Chloride [Moles/Vol] 101 mmol/L Normal 98-107 [facility] Comment on above: Performed By: #### C MATHIEU, HSTROPN #### [facility] [address] [place] [address] Dr. Vito Grimm CO2 [Moles/Vol] 23.5 mmol/L Normal 21.0-32.0 [facility] Comment on above: Performed By: #### C MATHIEU, HSTROPN #### [facility] [address] [place] [address] Dr. Vito Grimm Creatinine [Mass/Vol] 0.72 mg/dL Normal 0.55-1.02 [facility] Comment on above: Performed By: #### C MATHIEU, HSTROPN #### [facility] [address] [place] [address] Dr. Vito Grimm EGFR-AF CYPRIOT >60 Normal >=60 [facility] Comment on above: Performed By: #### C MATHIEU, HSTROPN #### [facility] [address] [place] [address] Dr. Vito Grimm EGFR-NON AF CYPRIOT >60 Normal >=60 [facility] Comment on above: Performed By: #### C MATHIEU, HSTROPN #### [facility] [address] [address] [address] Vito Grimm Globulin (S) [Mass/Vol] 3.4 g/dL Normal [facility] Comment on above: Performed By: #### C MP, HSTROPN #### [facility] [address] [address] [address] Vito Grimm Glucose [Mass/Vol] 146 mg/dL Critically high 74-106 [facility] Comment on above: Performed By: #### C MP, HSTROPN #### [facility] [address] [address] [address] Vito Grimm Potassium [Moles/Vol] 4.5 mmol/L Normal 3.5-5.1 [facility] Comment on above: Performed By: #### C MP, HSTROPN #### [facility] [address] [place] [address] Dr. Vito Grimm Protein [Mass/Vol] 7.0 g/dL Normal 6.4-8.2 [facility] Comment on above: Performed By: #### C MP, HSTROPN #### [facility] [address] [address] [address] Vito Grimm Sodium [Moles/Vol] 137 mmol/L Normal 136-145 [facility] Comment on above: Performed By: #### C MP, HSTROPN #### [facility] [address] [address] [address] Vito Grimm Urea nitrogen [Mass/Vol] 11.0 mg/dL Normal 7.0-18.0 [facility] Comment on above: Performed By: #### C MP, HSTROPN #### [facility] [address] [address] [address] Vito Grimm Urea nitrogen/Creatinine [Mass ratio] 15.3 mg/mg Normal [facility] Comment on above: Performed By: #### C MP, HSTROPN #### [facility] [address] [address] [address] Vito Grimm Albumin [Mass/volume] in Ser um or PlasmaOrdered By: Ajit Pettit on 11-05-2022 Albumin [Mass/Vol] 4.2 g/dL 3.2-5.5 [facility] Basophils Auto (Bld) [#/Vol] Ordered By: Ajit Pettit on 11-05-2022 Basophils (Bld) [#/Vol] 0.1 10*3/uL 0.0-0.2 [facility] Basophils/100 WBC Auto (Bld) Ordered By: Ajit Pettit on 11-05-2022 Basophils/100 WBC (Bld) 0.8 % . [facility] Cholesterol [Mass/volume] in Serum or PlasmaOrdered By: Ajit Pettit on 11-05-2022 Cholesterol [Mass/Vol] 174 mg/dL 140-200 [facility] Comment on above: Chol less than 200 m g/dl low riskChol 201-239 mg/dl borderline riskChol 240 mg/dl and greater high risk Cholesterol in LDL Calc [Mas s/Vol]Ordered By: Ajit Pettit on 11-05-2022 Cholesterol in LDL [Mass/Vol] 66 mg/dL 0-100 [facility] Comment on above: LDL ATP III CLASSIFI CATIONLDL less than 100 mg/dL OptimalLDL 100-129 mg/dL Near or above optimalLDL 130-159 mg/dL Borderline highLDL 160-189 mg/dL HighLDL greater than 189 mg/dL Very high Cholesterol in VLDL Calc [Ma ss/Vol]Ordered By: Ajit Pettit on 11-05-2022 Cholesterol in VLDL [Mass/Vol] 66 mg/dL [facility] Creatinine and Glomerular fi ltration rate.predicted panel (S/P/Bld)Ordered By: Ajit Pettit on 11-05-2022 Creatinine [Mass/Vol] 0.57 mg/dL 0.44-1.03 [facility] Eosinophils Auto (Bld) [#/Vo l]Ordered By: Ajit Pettit on 11-05-2022 Eosinophils (Bld) [#/Vol] 0.1 10*3/uL 0.0-0.45 [facility] Eosinophils/100 WBC Auto (Bl d)Ordered By: Ajit Pettit on 11-05-2022 Eosinophils/100 WBC (Bld) 0.7 % . [facility] Erythrocyte distribution wid th Auto (RBC) [Ratio]Ordered By: Ajit Pettit on 11-05-2022 Erythrocyte distribution width (RBC) [Ratio] 13.5 % 11.9-15.3 [facility] Estimated glomerular filtrat ion rate (GFR) non- AmericanOrdered By: Ajit Pettit on 11-05-2022 GFR/1.73 sq M.predicted among non-blacks MDRD (S/P/Bld) [Vol rate/Area] > 60 mL/Min [facility] Globulin Calc (S) [Mass/Vol] Ordered By: Ajit Pettit on 11-05-2022 Globulin (S) [Mass/Vol] 2.6 g/dL [facility] Glucose mean value [Mass/vol ume] in Blood Estimated from glycated hemoglobinOrdered By: Ajit Pettit on 11-05-2022 Average glucose Estimated from glycated hemoglobin (Bld) [Mass/Vol] 143 mg/dL [facility] HPV 16+18+31+33+35+39+45+51+ 52+56+58+59+68 DNA cervix probe + signal amplificOrdered By: Ajit Pettit on 11-05-2022 HPV 16+18+31+33+35+39+45+51 +52+56+58+59+68 DNA Probe+sig amp Ql (Cvx) Positive Negative [facility] Comment on above: This nucleic acid am plification test detects fourteen high-risk HPV types (16,18,31,33,35,39,45,51,52,56,58,59,66,68)without differentiation. Hematocrit Auto (Bld) [Volum e fraction]Ordered By: Ajit Pettit on 11-05-2022 Hematocrit (Bld) [Volume fraction] 40.1 % 34.0-46.4 [facility] Hemoglobin A1c percentageOrd ered By: Ajit Pettit on 11-05-2022 HbA1c (Bld) [Mass fraction] 6.6 % 4.3-5.6 [facility] Comment on above: Increased risk for d iabetes: 5.7 - 6.4diabetes: >6.4glycemic control for adults with diabetes: <7.0 Hemoglobin [Mass/volume] in BloodOrdered By: Ajit Pettit on 11-05-2022 Hemoglobin (Bld) [Mass/Vol] 13.2 g/dL 11.8-15.4 [facility] - Microbiology an d Antimicrobial susceptibilityOrdered By: Ajit Pettit on 11-05-2022 N. gonorrhoeae DNA NAYELY+probe Ql (Unsp spec) Negative Negative [facility] Comment on above: Performed at: =[address] [id number] Director: Breanna Clark MD, Phone: [phone] Leukocytes [#/volume] correc cherie for nucleated erythrocytes in Blood by Automated counOrdered By: Ajit Pettit on 11-05-2022 WBC corrected for nucl RBC Auto (Bld) [#/Vol] 13.7 10*3/uL 3.8-11.6 [facility] Lymphocytes Auto (Bld) [#/Vo l]Ordered By: Ajit Pettit on 11-05-2022 Lymphocytes (Bld) [#/Vol] 5.1 10*3/uL 1.00-4.8 [facility] Lymphocytes/100 WBC Auto (Bl d)Ordered By: Ajit Pettit on 11-05-2022 Lymphocytes/100 WBC (Bld) 37.3 % . [facility] MCH Auto (RBC) [Entitic mass ]Ordered By: Ajit Pettit on 11-05-2022 MCH (RBC) [Entitic mass] 29.5 pg 24.7-34.3 [facility] MCHC Auto (RBC) [Mass/Vol]Or dered By: Ajit Pettit on 11-05-2022 MCHC (RBC) [Mass/Vol] 32.8 g/dL 32.0-35.0 [facility] MCV Auto (RBC) [Entitic vol] Ordered By: Ajit Pettit on 11-05-2022 MCV (RBC) [Entitic vol] 90.0 fL 80-100 [facility] Microcytes LM Ql (Bld)Ordere d By: Ajit Pettit on 02-02-2023 Microcytes Ql (Bld) Slight [facility] Monocytes Auto (Bld) [#/Vol] Ordered By: Ajit Pettit on 11-05-2022 Monocytes (Bld) [#/Vol] 1.1 10*3/uL 0.0-0.8 [facility] Monocytes/100 WBC Auto (Bld) Ordered By: Ajit Pettit on 11-05-2022 Monocytes/100 WBC (Bld) 8.3 % . [facility] Neutrophils Auto (Bld) [#/Vo l]Ordered By: Ajit Pettit on 11-05-2022 Neutrophils (Bld) [#/Vol] 7.3 10*3/uL 1.8-7.7 [facility] Neutrophils/100 WBC Auto (Bl d)Ordered By: Ajit Pettit on 11-05-2022 Neutrophils/100 WBC (Bld) 52.9 % . [facility] No Panel InformationOrdered By: Ajit Pettit on 11-05-2022 25-Hydroxy Vitamin D Total 28.8 ng/mL 30-100 [facility] Comment on above: VITAMIN D STATUS 25( OH)VITAMIN D RANGE (ng/mL) Deficient <20 Insufficient 20 to <30Sufficient 30 to 100Reference: Jovanni MF,Dominique ARORA, Gillian NINA, et al. Evaluation,treatment, and prevention of vitamin D deficiency; an Endocrine Society clinical practice guideline. JCEM. 2010; 96(7):1911-30. Luz Elena albicans (NAYELY) Negative Negative [facility] Comment on above: This test was develo ped and its performance characteristicsdetermined by [facility]. It has not been cleared orapproved by the Food and Drug Administration. Luz Elena glabrata (NAYELY) Negative Negative [facility] Comment on above: This test was develo ped and its performance characteristicsdetermined by [facility]. It has not been cleared orapproved by the Food and Drug Administration. Chlamydia trachomatis (NAYELY) (LAB) Negative Negative [facility] Estimated GFR () > 60 mL/Min [facility] Comment on above: GFR estimated refere nce range: According to KDOQI guidelines, <60 ml/min/1.73m2 is sufficient to diagnose a patient with chronic kidney disease. Human Papilloma Virus Type 16 Negative Negative [facility] Human Papilloma Virus Type 18/45 Negative Negative [facility] Comment on above: Performed at: =G - [facility] [id number] [place], [place] [id number] Director: Breanna Clark MD, Phone: [phone] at: WB - [facility] [id number] Director: Breanna Clark MD, Phone: [phone] IG Pap w/Ct-Ng Age Based (Off-Site) Note . [facility] Comment on above: TESTS RESULT FLAG UN ITS REF RANGE LAB - Clinician Provided Cytology Information No. of containers..01 ThinPrep VialAge Lissetho CORRYOG Monisha... 30-65 FLAG LEGEND: L-Low Normal,H-High Normal,LL-Alert Low,HH-Alert High <-Panic Low,>-Panic High,A-Abnormal,AA-Critical Abnormal ------Performed at:01 =G [facility] [address] [facility] [place] [address] Breanna Clark MD, Pharmacy Creatinine Clearance (Chem N/A [facility] Thin Prep Pap Comment Note . [facility] Comment on above: TESTS RESULT FLAG UN ITS REF RANGE LAB -DIAGNOSIS: 02 NEGATIVE FOR INTRAEPITHELIAL LESION OR MALIGNANCY. THIS SPECIMEN WAS RESCREENED PART OF OUR STAFF PHARMACIST PROGRAM.Specimen adequacy: 02 Satisfactory for evaluation. Endocervical and/or squamous metaplastic cells (endocervical component) are present.Performed by: 02 Larry Mirza, Order Entry Administrator ([facility])QC reviewed by: 02 Sammie Thomason, Supervisory Order Entry Administrator ([facility]). 02Note: Note 02 The Pap smear is [...] Low,>-Panic High,A-Abnormal,AA-Critical Abnormal ------Performed at:02 [facility] [address] [place] [address] Breanna Clark MD, Trichomonas vaginalis (NAYELY) Negative Negative [facility] Nucleated erythrocytes [Pres ence] in Blood by Automated countOrdered By: Ajit Pettit on 11-05-2022 Nucleated RBC Auto Ql (Bld) 0.1 /100{WBC} 0-0.5 [facility] Platelet adequacy [Presence] in Blood by Light microscopyOrdered By: Ajit Pettit on 11-05-2022 Platelets LM Ql (Bld) Normal Normal [facility] Platelet mean volume Auto (B ld) [Entitic vol]Ordered By: Ajit Pettit on 11-05-2022 Platelet mean volume (Bld) [Entitic vol] 9.1 fL 6.3-10.7 [facility] Platelet morphology finding [Identifier] in BloodOrdered By: Ajit Pettit on 11-05-2022 Platelet morphology finding Nom (Bld) N/A [facility] Platelets Auto (Bld) [#/Vol] Ordered By: Ajit Pettit on 11-05-2022 Platelets (Bld) [#/Vol] 304 10*3/uL 150-450 [facility] Platelets Large [Presence] i n Blood by Light microscopyOrdered By: Ajit Pettit on 11-05-2022 Platelets Large LM Ql (Bld) Slight [facility] Polychromasia [Presence] in Blood by Light microscopyOrdered By: Ajit Pettit on 11-05-2022 Polychromasia LM Ql (Bld) Slight [facility] Protein [Mass/volume] in Ser um or PlasmaOrdered By: Ajit Pettit on 11-05-2022 Protein [Mass/Vol] 6.8 g/dL 6.1-7.9 [facility] RBC Auto (Bld) [#/Vol]Ordere d By: Ajit Pettit on 11-05-2022 RBC (Bld) [#/Vol] 4.46 10*6/uL 3.60-5.00 [facility] RBC morphologyOrdered By: Cole Pettit on 11-05-2022 RBC morphology finding Nom (Bld) N/A [facility] Serum or plasma alanine george otransferase measurement without P-5'-P (enzymatic activiOrdered By: Ajit Pettit on 11-05-2022 ALT No additional P-5'-P [Catalytic activity/Vol] 16 U/L 10-60 [facility] Serum or plasma albumin/glob ulin mass ratioOrdered By: Ajit Pettit on 11-05-2022 Albumin/Globulin [Mass ratio] 1.6 {ratio} [facility] Serum or plasma alkaline lalo sphatase measurement (enzymatic activity/volume)Ordered By: Ajit Pettit on 11-05-2022 ALP [Catalytic activity/Vol] 52 U/L 32-92 [facility] Serum or plasma anion gap de terminationOrdered By: Ajit Pettit on 11-05-2022 Anion gap [Moles/Vol] 14.2 mmol/L 6.0-15.0 [facility] Serum or plasma aspartate am inotransferase measurement (enzymatic activity/volume)Ordered By: Ajit Pettit on 11-05-2022 AST [Catalytic activity/Vol] 20 U/L 10-42 [facility] Serum or plasma calcium ashwini urement (mass/volume)Ordered By: Ajit Pettit on 11-05-2022 Calcium [Mass/Vol] 9.3 mg/dL 8.2-10.2 [facility] Serum or plasma chloride jett surement (moles/volume)Ordered By: Ajit Pettit on 11-05-2022 Chloride [Moles/Vol] 99 mmol/L 95-114 [facility] Serum or plasma glucose ashwini urement (mass/volume)Ordered By: Ajit Pettit on 11-05-2022 Glucose [Mass/Vol] 96 mg/dL 70-100 [facility] Comment on above: ADA recommended refe rence rangeRandom Glucose Reference Range is dependent on time and content of last meal. Glucose of more than 200 mg/dL in a nonstressed, ambulatory subject supports the diagnosis of Diabetes Mellitus. Serum or plasma high density lipoprotein (HDL) cholesterol measurementOrdered By: Ajit Pettit on 11-05-2022 Cholesterol in HDL [Mass/Vol] 42 mg/dL 35-85 [facility] Comment on above: HDL CHOL ATP-III CLA SSIFICATION Cardiovascular RiskHDL > or equal to 60 mg/dL LOWHDL < 40 mg/dL HIGH Serum or plasma potassium me asurement (moles/volume)Ordered By: Ajit Pettit on 11-05-2022 Potassium [Moles/Vol] 4.3 mmol/L 3.5-5.1 [facility] Serum or plasma sodium measu rement (moles/volume)Ordered By: Ajit Pettit on 11-05-2022 Sodium [Moles/Vol] 132 mmol/L 136-146 [facility] Serum or plasma total biliru bin measurement (mass/volume)Ordered By: Ajit Pettit on 11-05-2022 Bilirubin [Mass/Vol] 0.3 mg/dL 0.3-1.2 [facility] Serum or plasma total carbon dioxide measurement (moles/volume)Ordered By: Ajit Pettit on 11-05-2022 CO2 [Moles/Vol] 23.1 mmol/L 22.0-30.0 [facility] Serum or plasma total choles terol/high density lipoprotein (HDL) cholesterol mass ratOrdered By: Ajit Pettit on 11-05-2022 Cholesterol.total/Suellen sterol in HDL [Mass ratio] 4.1 {ratio} <5.0 [facility] Serum or plasma urea nitroge n measurement (mass/volume)Ordered By: Ajit Pettit on 11-05-2022 Urea nitrogen [Mass/Vol] 7 mg/dL 9-23 [facility] TSH DL <= 0.005 mIU/L QnOrde red By: Ajit Pettit on 11-05-2022 TSH Qn 4.07 m[IU]/L 0.45-5.33 [facility] Triglyceride [Mass/volume] i n Serum or PlasmaOrdered By: Ajit Pettit on 11-05-2022 Triglyceride [Mass/Vol] 330 mg/dL 35-149 [facility] Comment on above: TRIG ATP III CLASSIF ICATIONTRIG less than 150 mg/dL NormalTRIG 150-199 mg/dL Borderline highTRIG 200-500 mg/dL High TRIG greater than 500 mg/dL Very highStandard traceable to the Center for Disease Conrtrol and Prevention (CDC) test method. Urine culture routineOrdered By: Ajit Pettit on 11-05-2022 Bacteria identified Cx Nom (U) No Growth 2 Days [facility] Vaginal fluid Atopobium vagi rich DNA detection by probe and target amplification methoOrdered By: Ajit Pettit on 11-05-2022 A. vaginae DNA NAYELY+probe Ql (Vag fld) Low - 0 Score . [facility] Vaginal fluid Megasphaera sp ecies type 1 DNA detection by probe and target amplificatOrdered By: Ajit Pettit on 11-05-2022 Megasphaera sp type 1 DNA NAYELY+probe Ql (Vag fld) Low - 0 Score . [facility] Comment on above: Calculate total scor e by adding the 3 individual bacterialvaginosis (BV) marker scores together. Total score isinterpreted as follows:Total score 0-1: Indicates the absence of BV.Total score 2: Indeterminate for BV. Additional clinical data should be evaluated to establish a diagnosis.Total score 3-6: Indicates the presence of BV.This test was developed and its performance characteristicsdetermined by [employer]. It has not been cleared or approvedby the Food and Drug Administration. Vaginal fluid bacterial vagi nosis associated bacterium 2 DNA detection by probe and tOrdered By: Ajit Pettit on 11-05-2022 Bacterial vaginosis associated bacterium 2 DNA NAYELY+probe Ql (Vag fld) Low - 0 Score . [facility] WBC Auto (Bld) [#/Vol]Ordere d By: Ajit Pettit on 11-05-2022 WBC (Bld) [#/Vol] 13.7 10*3/uL 3.8-11.6 [facility] Basophils Auto (Bld) [#/Vol] Ordered By: Ajit Pettit on 07-08-2022 Basophils (Bld) [#/Vol] 0.1 10*3/uL 0.0-0.2 [facility] Basophils/100 WBC Auto (Bld) Ordered By: Ajit Pettit on 07-08-2022 Basophils/100 WBC (Bld) 0.4 % . [facility] Blood hemoglobin measurement (mass/volume)Ordered By: Ajit Pettit on 07-08-2022 Hemoglobin (Bld) [Mass/Vol] 12.7 g/dL 11.8-15.4 [facility] Blood leukocytes automated c ount (number/volume)Ordered By: Ajit Pettit on 07-08-2022 WBC (Bld) [#/Vol] 14.3 10*3/uL 4.5-11.0 [facility] Body fluid albumin measureme nt (mass/volume)Ordered By: Ajit Pettit on 07-08-2022 Albumin (Body fld) [Mass/Vol] 3.6 g/dL 3.2-5.5 [facility] Creatinine and Glomerular fi ltration rate.predicted panel (S/P/Bld)Ordered By: Ajit Pettit on 07-08-2022 Creatinine [Mass/Vol] 0.66 mg/dL 0.44-1.03 [facility] Eosinophils Auto (Bld) [#/Vo l]Ordered By: Ajit Pettit on 07-08-2022 Eosinophils (Bld) [#/Vol] 0.2 10*3/uL 0.0-0.45 [facility] Eosinophils/100 WBC Auto (Bl d)Ordered By: Ajit Pettit on 07-08-2022 Eosinophils/100 WBC (Bld) 1.2 % . [facility] Erythrocyte distribution wid th Auto (RBC) [Ratio]Ordered By: Ajit Pettit on 07-08-2022 Erythrocyte distribution width (RBC) [Ratio] 13.5 % 11.9-15.3 [facility] Estimated glomerular filtrat ion rate (GFR) non- AmericanOrdered By: Ajit Pettit on 07-08-2022 GFR/1.73 sq M.predicted among non-blacks MDRD (S/P/Bld) [Vol rate/Area] > 60 mL/Min [facility] Globulin Calc (S) [Mass/Vol] Ordered By: Ajit Pettit on 07-08-2022 Globulin (S) [Mass/Vol] 2.4 g/dL [facility] Hematocrit Auto (Bld) [Volum e fraction]Ordered By: Ajit Pettit on 07-08-2022 Hematocrit (Bld) [Volume fraction] 38.9 % 34.0-46.4 [facility] Laboratory - Hematology and Cell countsOrdered By: Ajit Pettit on 07-08-2022 Nucleated RBC/100 WBC (Bld) [Ratio] 0.0 % 0-0.5 [facility] Lymphocytes Auto (Bld) [#/Vo l]Ordered By: Ajit Pettit on 07-08-2022 Lymphocytes (Bld) [#/Vol] 4.5 10*3/uL 1.00-4.8 [facility] Lymphocytes/100 WBC Auto (Bl d)Ordered By: Ajit Pettit on 07-08-2022 Lymphocytes/100 WBC (Bld) 31.2 % . [facility] MCH Auto (RBC) [Entitic mass ]Ordered By: Ajit Pettit on 07-08-2022 MCH (RBC) [Entitic mass] 29.7 pg 24.7-34.3 [facility] MCHC Auto (RBC) [Mass/Vol]Or dered By: Ajit Pettit on 07-08-2022 MCHC (RBC) [Mass/Vol] 32.7 g/dL 32.0-35.0 [facility] MCV Auto (RBC) [Entitic vol] Ordered By: Ajit Pettit on 07-08-2022 MCV (RBC) [Entitic vol] 90.8 fL 80-100 [facility] Monocytes Auto (Bld) [#/Vol] Ordered By: Ajit Pettit on 07-08-2022 Monocytes (Bld) [#/Vol] 1.1 10*3/uL 0.0-0.8 [facility] Monocytes/100 WBC Auto (Bld) Ordered By: Ajit Pettit on 07-08-2022 Monocytes/100 WBC (Bld) 7.8 % . [facility] Neutrophils Auto (Bld) [#/Vo l]Ordered By: Ajit Pettit on 07-08-2022 Neutrophils (Bld) [#/Vol] 8.5 10*3/uL 1.8-7.7 [facility] Neutrophils/100 WBC Auto (Bl d)Ordered By: Ajit Pettit on 07-08-2022 Neutrophils/100 WBC (Bld) 59.4 % . [facility] No Panel InformationOrdered By: Ajit Pettit on 07-08-2022 Estimated GFR () > 60 mL/Min [facility] Comment on above: GFR estimated refere nce range: According to KDOQI guidelines, <60 ml/min/1.73m2 is sufficient to diagnose a patient with chronic kidney disease. Pharmacy Creatinine Clearance (Chem N/A [facility] Platelet mean volume Auto (B ld) [Entitic vol]Ordered By: Ajit Pettit on 07-08-2022 Platelet mean volume (Bld) [Entitic vol] 8.3 fL 6.3-10.7 [facility] Platelets Auto (Bld) [#/Vol] Ordered By: Ajit Pettit on 07-08-2022 Platelets (Bld) [#/Vol] 332 10*3/uL 150-450 [facility] Protein [Mass/volume] in Ser um or PlasmaOrdered By: Ajit Pettit on 07-08-2022 Protein [Mass/Vol] 6.0 g/dL 6.1-7.9 [facility] RBC Auto (Bld) [#/Vol]Ordere d By: Ajit Pettit on 07-08-2022 RBC (Bld) [#/Vol] 4.29 10*6/uL 3.60-5.00 [facility] Serum or plasma alanine george otransferase measurement without P-5'-P (enzymatic activiOrdered By: Ajit Pettit on 07-08-2022 ALT No additional P-5'-P [Catalytic activity/Vol] 26 U/L 10-60 [facility] Serum or plasma albumin/glob ulin mass ratioOrdered By: Ajit Pettit on 07-08-2022 Albumin/Globulin [Mass ratio] 1.5 {ratio} [facility] Serum or plasma alkaline lalo sphatase measurement (enzymatic activity/volume)Ordered By: Ajit Pettit on 07-08-2022 ALP [Catalytic activity/Vol] 46 U/L 32-92 [facility] Serum or plasma anion gap de terminationOrdered By: Ajit Pettit on 07-08-2022 Anion gap [Moles/Vol] 15.1 mmol/L 6.0-15.0 [facility] Serum or plasma aspartate am inotransferase measurement (enzymatic activity/volume)Ordered By: Ajit Pettit on 07-08-2022 AST [Catalytic activity/Vol] 31 U/L [facility] Serum or plasma calcium ashwini urement (mass/volume)Ordered By: Ajit Pettit on 07-08-2022 Calcium [Mass/Vol] 9.3 mg/dL 8.2-10.2 [facility] Serum or plasma chloride jett surement (moles/volume)Ordered By: Ajit Pettit on 07-08-2022 Chloride [Moles/Vol] 101 mmol/L 95-114 [facility] Serum or plasma glucose ashwini urement (mass/volume)Ordered By: Ajit Pettit on 07-08-2022 Glucose [Mass/Vol] 129 mg/dL 70-100 [facility] Comment on above: ADA recommended refe rence rangeRandom Glucose Reference Range is dependent on time and content of last meal. Glucose of more than 200 mg/dL in a nonstressed, ambulatory subject supports the diagnosis of Diabetes Mellitus. Serum or plasma potassium me asurement (moles/volume)Ordered By: Ajit Pettit on 07-08-2022 Potassium [Moles/Vol] 5.0 mmol/L 3.5-5.1 [facility] Serum or plasma sodium measu rement (moles/volume)Ordered By: Ajit Pettit on 07-08-2022 Sodium [Moles/Vol] 135 mmol/L 136-146 [facility] Serum or plasma total biliru bin measurement (mass/volume)Ordered By: Ajit Pettit on 07-08-2022 Bilirubin [Mass/Vol] 0.5 mg/dL 0.3-1.2 [facility] Serum or plasma total carbon dioxide measurement (moles/volume)Ordered By: Ajit Pettit on 07-08-2022 CO2 [Moles/Vol] 23.9 mmol/L 22.0-30.0 [facility] Serum or plasma urea nitroge n measurement (mass/volume)Ordered By: Ajit Pettit on 07-08-2022 Urea nitrogen [Mass/Vol] 12 mg/dL 06-26 [facility] TSH DL <= 0.005 mIU/L QnOrde red By: Ajit Pettit on 06-24-2022 TSH Qn 4.14 m[IU]/L 0.45-5.33 [facility] Basophils Auto (Bld) [#/Vol] Ordered By: Ajit Pettit on 06-02-2022 Basophils (Bld) [#/Vol] 0.1 10*3/uL 0.0-0.2 [facility] Basophils/100 WBC Auto (Bld) Ordered By: Ajit Pettit on 06-02-2022 Basophils/100 WBC (Bld) 0.9 % . [facility] Blood hemoglobin measurement (mass/volume)Ordered By: Ajit Pettit on 06-02-2022 Hemoglobin (Bld) [Mass/Vol] 12.9 g/dL 11.8-15.4 [facility] Blood leukocytes automated c ount (number/volume)Ordered By: Ajit Pettit on 06-02-2022 WBC (Bld) [#/Vol] 16.8 10*3/uL 4.5-11.0 [facility] Body fluid albumin measureme nt (mass/volume)Ordered By: Ajit Pettit on 06-02-2022 Albumin (Body fld) [Mass/Vol] 3.5 g/dL 3.2-5.5 [facility] Creatinine and Glomerular fi ltration rate.predicted panel (S/P/Bld)Ordered By: Ajit Pettit on 06-02-2022 Creatinine [Mass/Vol] 0.58 mg/dL 0.44-1.03 [facility] Eosinophils Auto (Bld) [#/Vo l]Ordered By: Ajit Pettit on 06-02-2022 Eosinophils (Bld) [#/Vol] 0.1 10*3/uL 0.0-0.45 [facility] Eosinophils/100 WBC Auto (Bl d)Ordered By: Ajit Pettit on 06-02-2022 Eosinophils/100 WBC (Bld) 0.7 % . [facility] Erythrocyte distribution wid th Auto (RBC) [Ratio]Ordered By: Ajit Pettit on 06-02-2022 Erythrocyte distribution width (RBC) [Ratio] 13.3 % 11.9-15.3 [facility] Estimated glomerular filtrat ion rate (GFR) non- AmericanOrdered By: Ajit Pettit on 06-02-2022 GFR/1.73 sq M.predicted among non-blacks MDRD (S/P/Bld) [Vol rate/Area] > 60 mL/Min [facility] Globulin Calc (S) [Mass/Vol] Ordered By: Ajit Pettit on 06-02-2022 Globulin (S) [Mass/Vol] 2.5 g/dL [facility] Hematocrit Auto (Bld) [Volum e fraction]Ordered By: Ajit Pettit on 06-02-2022 Hematocrit (Bld) [Volume fraction] 38.8 % 34.0-46.4 [facility] Laboratory - Hematology and Cell countsOrdered By: Ajit Pettit on 06-02-2022 Nucleated RBC/100 WBC (Bld) [Ratio] 0.0 % 0-0.5 [facility] Lymphocytes Auto (Bld) [#/Vo l]Ordered By: Ajit Pettit on 06-02-2022 Lymphocytes (Bld) [#/Vol] 3.4 10*3/uL 1.00-4.8 [facility] Lymphocytes/100 WBC Auto (Bl d)Ordered By: Ajit Pettit on 06-02-2022 Lymphocytes/100 WBC (Bld) 20.3 % . [facility] MCH Auto (RBC) [Entitic mass ]Ordered By: Aijt Pettit on 06-02-2022 MCH (RBC) [Entitic mass] 30.3 pg 24.7-34.3 [facility] MCHC Auto (RBC) [Mass/Vol]Or dered By: Ajit Pettit on 06-02-2022 MCHC (RBC) [Mass/Vol] 33.2 g/dL 32.0-35.0 [facility] MCV Auto (RBC) [Entitic vol] Ordered By: Ajit Pettit on 06-02-2022 MCV (RBC) [Entitic vol] 91.1 fL 80-100 [facility] Monocytes Auto (Bld) [#/Vol] Ordered By: Ajit Pettit on 06-02-2022 Monocytes (Bld) [#/Vol] 1.2 10*3/uL 0.0-0.8 [facility] Monocytes/100 WBC Auto (Bld) Ordered By: Ajit Pettit on 06-02-2022 Monocytes/100 WBC (Bld) 7.2 % . [facility] Neutrophils Auto (Bld) [#/Vo l]Ordered By: Ajit Pettit on 06-02-2022 Neutrophils (Bld) [#/Vol] 11.9 10*3/uL 1.8-7.7 [facility] Neutrophils/100 WBC Auto (Bl d)Ordered By: Ajit Pettit on 06-02-2022 Neutrophils/100 WBC (Bld) 70.9 % . [facility] No Panel InformationOrdered By: Ajit Pettit on 06-02-2022 Estimated GFR () > 60 mL/Min [facility] Comment on above: GFR estimated refere nce range: According to KDOQI guidelines, <60 ml/min/1.73m2 is sufficient to diagnose a patient with chronic kidney disease. Pharmacy Creatinine Clearance (Chem N/A [facility] Platelet mean volume Auto (B ld) [Entitic vol]Ordered By: Ajit Pettit on 06-02-2022 Platelet mean volume (Bld) [Entitic vol] 9.2 fL 6.3-10.7 [facility] Platelets Auto (Bld) [#/Vol] Ordered By: Ajit Pettit on 06-02-2022 Platelets (Bld) [#/Vol] 313 10*3/uL 150-450 [facility] Protein [Mass/volume] in Ser um or PlasmaOrdered By: Ajit Pettit on 06-02-2022 Protein [Mass/Vol] 6.0 g/dL 6.1-7.9 [facility] RBC Auto (Bld) [#/Vol]Ordere d By: Ajit Pettit on 06-02-2022 RBC (Bld) [#/Vol] 4.26 10*6/uL 3.60-5.00 [facility] Serum or plasma alanine george otransferase measurement without P-5'-P (enzymatic activiOrdered By: Ajit Pettit on 06-02-2022 ALT No additional P-5'-P [Catalytic activity/Vol] 20 U/L 10-60 [facility] Serum or plasma albumin/glob ulin mass ratioOrdered By: Ajit Pettit on 06-02-2022 Albumin/Globulin [Mass ratio] 1.4 {ratio} [facility] Serum or plasma alkaline lalo sphatase measurement (enzymatic activity/volume)Ordered By: Ajit Pettit on 06-02-2022 ALP [Catalytic activity/Vol] 48 U/L 32-92 [facility] Serum or plasma anion gap de terminationOrdered By: Ajit Pettit on 06-02-2022 Anion gap [Moles/Vol] 15.8 mmol/L 6.0-15.0 [facility] Serum or plasma aspartate am inotransferase measurement (enzymatic activity/volume)Ordered By: Ajit Pettit on 06-02-2022 AST [Catalytic activity/Vol] 21 U/L 10-42 [facility] Serum or plasma calcium ashwini urement (mass/volume)Ordered By: Ajit Pettit on 06-02-2022 Calcium [Mass/Vol] 9.1 mg/dL 8.2-10.2 [facility] Serum or plasma chloride jett surement (moles/volume)Ordered By: Ajit Pettit on 06-02-2022 Chloride [Moles/Vol] 100 mmol/L 95-114 [facility] Serum or plasma glucose ashwini urement (mass/volume)Ordered By: Ajit Pettit on 06-02-2022 Glucose [Mass/Vol] 141 mg/dL 70-100 [facility] Comment on above: ADA recommended refe rence [...] Potassium [Moles/Vol] 4.3 mmol/L 3.5-5.1 [facility] Serum or plasma sodium measu rement (moles/volume)Ordered By: Ajit Pettit on 06-02-2022 Sodium [Moles/Vol] 132 mmol/L 136-146 [facility] Serum or plasma total biliru bin measurement (mass/volume)Ordered By: Ajit Pettit on 06-02-2022 Bilirubin [Mass/Vol] 0.5 mg/dL 0.3-1.2 [facility] Serum or plasma total carbon dioxide measurement (moles/volume)Ordered By: Ajit Pettit on 06-02-2022 CO2 [Moles/Vol] 20.5 mmol/L 22.0-30.0 [facility] Serum or plasma urea nitroge n measurement (mass/volume)Ordered By: Ajit Pettit on 06-02-2022 Urea nitrogen [Mass/Vol] 12 mg/dL 9-23 [facility] TSH DL <= 0.005 mIU/L QnOrde red By: Ajit Pettit on 06-02-2022 TSH Qn 2.06 m[IU]/L 0.45-5.33 [facility] Basophils Auto (Bld) [#/Vol] Ordered By: Jasmin Velázquez on 05-27-2022 Basophils (Bld) [#/Vol] 0.1 10*3/uL 0.0-0.2 [facility] Basophils/100 WBC Auto (Bld) Ordered By: Jasmin Velázquez on 05-27-2022 Basophils/100 WBC (Bld) 0.6 % . [facility] Blood hemoglobin measurement (mass/volume)Ordered By: Jasmin Velázquez on 05-27-2022 Hemoglobin (Bld) [Mass/Vol] 13.1 g/dL 11.8-15.4 [facility] Blood leukocytes automated c ount (number/volume)Ordered By: Jasmin Velázquez on 05-27-2022 WBC (Bld) [#/Vol] 13.2 10*3/uL 4.5-11.0 [facility] CT biopsyOrdered By: Jasmin noel on 05-27-2022 Transferrin [Mass/Vol] 307 mg/dL 180-380 [facility] Eosinophils Auto (Bld) [#/Vo l]Ordered By: Jasmin Velázquez on 05-27-2022 Eosinophils (Bld) [#/Vol] 0.1 10*3/uL 0.0-0.45 [facility] Eosinophils/100 WBC Auto (Bl d)Ordered By: Jasmin Velázquez on 05-27-2022 Eosinophils/100 WBC (Bld) 1.0 % . [facility] Erythrocyte distribution wid th Auto (RBC) [Ratio]Ordered By: Jasmin Velázquez on 05-27-2022 Erythrocyte distribution width (RBC) [Ratio] 13.5 % 11.9-15.3 [facility] Ferritin [Mass/volume] in Se rum or PlasmaOrdered By: Jasmin Velázquez on 05-27-2022 Ferritin [Mass/Vol] 49.6 ng/mL 11-306.8 [facility] Hematocrit Auto (Bld) [Volum e fraction]Ordered By: Jasmin Velázquez on 05-27-2022 Hematocrit (Bld) [Volume fraction] 40.1 % 34.0-46.4 [facility] Iron [Mass/volume] in Serum or PlasmaOrdered By: Jasmin Velázquez on 05-27-2022 Iron [Mass/Vol] 50 ug/dL 40-150 [facility] Iron binding capacity [Mass/ volume] in Serum or PlasmaOrdered By: Jasmin Velázquez on 05-27-2022 Iron binding capacity [Mass/Vol] 430 ug/dL 255-450 [facility] Iron saturation [Mass Fracti on] in Serum or PlasmaOrdered By: Jasmin Velázquez on 05-27-2022 Iron saturation [Mass fraction] 11.0 % 20-50 [facility] Laboratory - Hematology and Cell countsOrdered By: Jasmin Velázquez on 05-27-2022 Nucleated RBC/100 WBC (Bld) [Ratio] 0.1 % 0-0.5 [facility] Lymphocytes Auto (Bld) [#/Vo l]Ordered By: Jasmin Velázquez on 05-27-2022 Lymphocytes (Bld) [#/Vol] 3.3 10*3/uL 1.00-4.8 [facility] Lymphocytes/100 WBC Auto (Bl d)Ordered By: Jasmin Velázquez on 05-27-2022 Lymphocytes/100 WBC (Bld) 24.8 % . [facility] MCH Auto (RBC) [Entitic mass ]Ordered By: Jasmin Velázquez on 05-27-2022 MCH (RBC) [Entitic mass] 30.0 pg 24.7-34.3 [facility] MCHC Auto (RBC) [Mass/Vol]Or dered By: Jasmin Velázquez on 05-27-2022 MCHC (RBC) [Mass/Vol] 32.7 g/dL 32.0-35.0 [facility] MCV Auto (RBC) [Entitic vol] Ordered By: Jasmin Velázquez on 05-27-2022 MCV (RBC) [Entitic vol] 91.5 fL 80-100 [facility] Monocytes Auto (Bld) [#/Vol] Ordered By: Jasmin Velázquez on 05-27-2022 Monocytes (Bld) [#/Vol] 1.0 10*3/uL 0.0-0.8 [facility] Monocytes/100 WBC Auto (Bld) Ordered By: Jasmin Velázquez on 05-27-2022 Monocytes/100 WBC (Bld) 7.6 % . [facility] Neutrophils Auto (Bld) [#/Vo l]Ordered By: Jasmin Velázquez on 05-27-2022 Neutrophils (Bld) [#/Vol] 8.7 10*3/uL 1.8-7.7 [facility] Neutrophils/100 WBC Auto (Bl d)Ordered By: Jasmin Velázquez on 05-27-2022 Neutrophils/100 WBC (Bld) 66.0 % . [facility] No Panel InformationOrdered By: Jasmin Velázquez on 05-27-2022 BCR/abl See comment [facility] Comment on above: See report. Scanned copy available in EMR. Platelet mean volume Auto (B ld) [Entitic vol]Ordered By: Jasmin Velázquez on 05-27-2022 Platelet mean volume (Bld) [Entitic vol] 8.8 fL 6.3-10.7 [facility] Platelets Auto (Bld) [#/Vol] Ordered By: Jasmin Velázquez on 05-27-2022 Platelets (Bld) [#/Vol] 284 10*3/uL 150-450 [facility] RBC Auto (Bld) [#/Vol]Ordere d By: Jasmin Velázquez on 05-27-2022 RBC (Bld) [#/Vol] 4.38 10*6/uL 3.60-5.00 [facility] Basophils Auto (Bld) [#/Vol] Ordered By: Ajit Pettit on 05-07-2022 Basophils (Bld) [#/Vol] 0.1 10*3/uL 0.0-0.2 [facility] Basophils/100 WBC Auto (Bld) Ordered By: Ajit Pettit on 05-07-2022 Basophils/100 WBC (Bld) 0.6 % . [facility] Blood hemoglobin measurement (mass/volume)Ordered By: Ajit Pettit on 05-07-2022 Hemoglobin (Bld) [Mass/Vol] 13.4 g/dL 11.8-15.4 [facility] Blood leukocytes automated c ount (number/volume)Ordered By: Ajit Pettit on 05-07-2022 WBC (Bld) [#/Vol] 16.2 10*3/uL 4.5-11.0 [facility] Eosinophils Auto (Bld) [#/Vo l]Ordered By: Ajit Pettit on 05-07-2022 Eosinophils (Bld) [#/Vol] 0.1 10*3/uL 0.0-0.45 [facility] Eosinophils/100 WBC Auto (Bl d)Ordered By: Ajit Pettit on 05-07-2022 Eosinophils/100 WBC (Bld) 0.9 % . [facility] Erythrocyte distribution wid th Auto (RBC) [Ratio]Ordered By: Ajit Pettit on 05-07-2022 Erythrocyte distribution width (RBC) [Ratio] 13.6 % 11.9-15.3 [facility] Hematocrit Auto (Bld) [Volum e fraction]Ordered By: Ajit Pettit on 05-07-2022 Hematocrit (Bld) [Volume fraction] 40.5 % 34.0-46.4 [facility] Laboratory - Hematology and Cell countsOrdered By: Ajit Pettit on 05-07-2022 Nucleated RBC/100 WBC (Bld) [Ratio] 0.0 % 0-0.5 [facility] Lymphocytes Auto (Bld) [#/Vo l]Ordered By: Ajit Pettit on 05-07-2022 Lymphocytes (Bld) [#/Vol] 4.7 10*3/uL 1.00-4.8 [facility] Lymphocytes/100 WBC Auto (Bl d)Ordered By: Ajit Millanc on 05-07-2022 Lymphocytes/100 WBC (Bld) 28.9 % . [facility] MCH Auto (RBC) [Entitic mass ]Ordered By: Ajit Pettit on 05-07-2022 MCH (RBC) [Entitic mass] 30.7 pg 24.7-34.3 [facility] MCHC Auto (RBC) [Mass/Vol]Or dered By: Ajit Pettit on 05-07-2022 MCHC (RBC) [Mass/Vol] 33.2 g/dL 32.0-35.0 [facility] MCV Auto (RBC) [Entitic vol] Ordered By: Ajit Pettit on 05-07-2022 MCV (RBC) [Entitic vol] 92.5 fL 80-100 [facility] Monocytes Auto (Bld) [#/Vol] Ordered By: Ajit Millanc on 05-07-2022 Monocytes (Bld) [#/Vol] 1.1 10*3/uL 0.0-0.8 [facility] Monocytes/100 WBC Auto (Bld) Ordered By: Ajit Lariossic on 05-07-2022 Monocytes/100 WBC (Bld) 6.8 % . [facility] Neutrophils Auto (Bld) [#/Vo l]Ordered By: Ajit Lariossic on 05-07-2022 Neutrophils (Bld) [#/Vol] 10.2 10*3/uL 1.8-7.7 [facility] Neutrophils/100 WBC Auto (Bl d)Ordered By: Ajit Millanc on 05-07-2022 Neutrophils/100 WBC (Bld) 62.8 % . [facility] No Panel InformationOrdered By: Ajit Pettit on 05-07-2022 Platelet Estimate Normal Normal [facility] Platelet Morphology Comment Normal Normal [facility] Platelet mean volume Auto (B ld) [Entitic vol]Ordered By: Ajit Pettit on 05-07-2022 Platelet mean volume (Bld) [Entitic vol] 8.0 fL 6.3-10.7 [facility] Platelets Auto (Bld) [#/Vol] Ordered By: Ajit Pettit on 05-07-2022 Platelets (Bld) [#/Vol] 369 10*3/uL 150-450 [facility] RBC Auto (Bld) [#/Vol]Ordere d By: Ajit Pettit on 05-07-2022 RBC (Bld) [#/Vol] 4.38 10*6/uL 3.60-5.00 [facility] RBC morphologyOrdered By: Cole Pettit on 05-07-2022 RBC morphology finding Nom (Bld) Normal [facility] Bacterial blood cultureOrder ed By: Rod Alvarado on 05-06-2022 Bacteria identified Cx Nom (Bld) NO GROWTH 5 DAYS [facility] Bacteria identified Cx Nom (Bld) NO GROWTH 5 DAYS [facility] Bacterial blood cultureOrder ed By: Ajit Pettit on 05-06-2022 Bacteria identified Cx Nom (Bld) NO GROWTH 5 DAYS [facility] Urine culture routineOrdered By: Ajit Pettit on 05-02-2022 Bacteria identified Cx Nom (U) 2 Days [facility] Activated partial thrombopla stin time (aPTT) in platelet poor plasma by coagulation aOrdered By: Rod Alvarado on 05-01-2022 aPTT Coag (PPP) [Time] 29.2 s 25.1-36.5 [facility] Automated epithelial cells c ount in urine sediment (number/area)Ordered By: Rod Alvarado on 05-01-2022 Epithelial cells Auto (Urine sed) [#/Area] 5-9 [HPF] 0-2 [facility] Automated erythrocytes count in urine sediment (number/area)Ordered By: Rod Alvarado on 05-01-2022 RBC Auto (Urine sed) [#/Area] 1-2 [HPF] 0-4 [facility] Automated leukocytes count i n urine sediment (number/area)Ordered By: Rod Alvarado on 05-01-2022 WBC Auto (Urine sed) [#/Area] 1-2 [HPF] 0-4 [facility] Basophils Auto (Bld) [#/Vol] Ordered By: Rod Alvarado on 05-01-2022 Basophils (Bld) [#/Vol] 0.2 10*3/uL 0.0-0.2 [facility] Basophils Auto (Bld) [#/Vol] Ordered By: Ajit Pettit on 05-01-2022 Basophils (Bld) [#/Vol] 0.1 10*3/uL 0.0-0.2 [facility] Basophils/100 WBC Auto (Bld) Ordered By: Rod Alvarado on 05-01-2022 Basophils/100 WBC (Bld) 1.0 % . [facility] Basophils/100 WBC Auto (Bld) Ordered By: Ajit Pettit on 05-01-2022 Basophils/100 WBC (Bld) 0.7 % . [facility] Bilirubin Auto test strip Ql (U)Ordered By: Rod Alvarado on 05-01-2022 Bilirubin Ql (U) 1+ Negative [facility] Blood hemoglobin measurement (mass/volume)Ordered By: Rod Alvarado on 05-01-2022 Hemoglobin (Bld) [Mass/Vol] 13.1 g/dL 11.8-15.4 [facility] Blood hemoglobin measurement (mass/volume)Ordered By: Ajit Pettit on 05-01-2022 Hemoglobin (Bld) [Mass/Vol] 12.9 g/dL 11.8-15.4 [facility] Blood leukocytes automated c ount (number/volume)Ordered By: Rod Alvarado on 05-01-2022 WBC (Bld) [#/Vol] 15.9 10*3/uL 4.5-11.0 [facility] Blood leukocytes automated c ount (number/volume)Ordered By: Ajit Pettit on 05-01-2022 WBC (Bld) [#/Vol] 14.7 10*3/uL 4.5-11.0 [facility] Body fluid albumin measureme nt (mass/volume)Ordered By: Ajit Pettit on 05-01-2022 Albumin (Body fld) [Mass/Vol] 3.6 g/dL 3.2-5.5 [facility] Creatinine and Glomerular fi ltration rate.predicted panel (S/P/Bld)Ordered By: Rod Alvarado on 05-01-2022 Creatinine [Mass/Vol] 0.58 mg/dL 0.44-1.03 [facility] Creatinine and Glomerular fi ltration rate.predicted panel (S/P/Bld)Ordered By: Ajit Pettit on 05-01-2022 Creatinine [Mass/Vol] 0.58 mg/dL 0.44-1.03 [facility] Eosinophils Auto (Bld) [#/Vo l]Ordered By: Rod Alvarado on 05-01-2022 Eosinophils (Bld) [#/Vol] 0.2 10*3/uL 0.0-0.45 [facility] Eosinophils Auto (Bld) [#/Vo l]Ordered By: Ajit Pettit on 05-01-2022 Eosinophils (Bld) [#/Vol] 0.1 10*3/uL 0.0-0.45 [facility] Eosinophils/100 WBC Auto (Bl d)Ordered By: Rod Alvarado on 05-01-2022 Eosinophils/100 WBC (Bld) 1.0 % . [facility] Eosinophils/100 WBC Auto (Bl d)Ordered By: Ajit Pettit on 05-01-2022 Eosinophils/100 WBC (Bld) 0.9 % . [facility] Erythrocyte distribution wid th Auto (RBC) [Ratio]Ordered By: Rod Alvarado on 05-01-2022 Erythrocyte distribution width (RBC) [Ratio] 13.6 % 11.9-15.3 [facility] Erythrocyte distribution wid th Auto (RBC) [Ratio]Ordered By: Ajit Pettit on 05-01-2022 Erythrocyte distribution width (RBC) [Ratio] 13.6 % 11.9-15.3 [facility] Estimated glomerular filtrat ion rate (GFR) non- AmericanOrdered By: Rod Alvarado on 05-01-2022 GFR/1.73 sq M.predicted among non-blacks MDRD (S/P/Bld) [Vol rate/Area] > 60 mL/Min [facility] Estimated glomerular filtrat ion rate (GFR) non- AmericanOrdered By: Ajit Pettit on 05-01-2022 GFR/1.73 sq M.predicted among non-blacks MDRD (S/P/Bld) [Vol rate/Area] > 60 mL/Min [facility] Globulin Calc (S) [Mass/Vol] Ordered By: Ajit Pettit on 05-01-2022 Globulin (S) [Mass/Vol] 2.6 g/dL [facility] Hematocrit Auto (Bld) [Volum e fraction]Ordered By: Rod Alvarado on 05-01-2022 Hematocrit (Bld) [Volume fraction] 39.0 % 34.0-46.4 [facility] Hematocrit Auto (Bld) [Volum e fraction]Ordered By: Ajit Pettit on 05-01-2022 Hematocrit (Bld) [Volume fraction] 39.0 % 34.0-46.4 [facility] Ketones Auto test strip (U) [Mass/Vol]Ordered By: Rod Alvarado on 05-01-2022 Ketones (U) [Mass/Vol] Trace Negative [facility] Laboratory - Chemistry and C hemistry - challengeOrdered By: Rod Alvarado on 05-01-2022 Lipase [Catalytic activity/Vol] 37.0 U/L 22-51 [facility] Laboratory - CoagulationOrde red By: Rod Alvarado on 05-01-2022 PT Coag (PPP) [Time] 9.6 s 9.0-12.9 [facility] Laboratory - Hematology and Cell countsOrdered By: Rod Alvarado on 05-01-2022 Nucleated RBC/100 WBC (Bld) [Ratio] 0.0 % 0-0.5 [facility] Laboratory - Hematology and Cell countsOrdered By: Ajit Pettit on 05-01-2022 Nucleated RBC/100 WBC (Bld) [Ratio] 0.0 % 0-0.5 [facility] Lymphocytes Auto (Bld) [#/Vo l]Ordered By: Rod Alvarado on 05-01-2022 Lymphocytes (Bld) [#/Vol] 4.3 10*3/uL 1.00-4.8 [facility] Lymphocytes Auto (Bld) [#/Vo l]Ordered By: Ajit Pettit on 05-01-2022 Lymphocytes (Bld) [#/Vol] 3.6 10*3/uL 1.00-4.8 [facility] Lymphocytes/100 WBC Auto (Bl d)Ordered By: Rod Alvarado on 05-01-2022 Lymphocytes/100 WBC (Bld) 26.9 % . [facility] Lymphocytes/100 WBC Auto (Bl d)Ordered By: Ajit Pettit on 05-01-2022 Lymphocytes/100 WBC (Bld) 24.8 % . [facility] MCH Auto (RBC) [Entitic mass ]Ordered By: Rod Alvarado on 05-01-2022 MCH (RBC) [Entitic mass] 30.5 pg 24.7-34.3 [facility] MCH Auto (RBC) [Entitic mass ]Ordered By: Ajit Pettit on 05-01-2022 MCH (RBC) [Entitic mass] 30.5 pg 24.7-34.3 [facility] MCHC Auto (RBC) [Mass/Vol]Or dered By: Rod Alvarado on 05-01-2022 MCHC (RBC) [Mass/Vol] 33.5 g/dL 32.0-35.0 [facility] MCHC Auto (RBC) [Mass/Vol]Or dered By: Ajit Pettit on 05-01-2022 MCHC (RBC) [Mass/Vol] 32.9 g/dL 32.0-35.0 [facility] MCV Auto (RBC) [Entitic vol] Ordered By: Rod Alvarado on 05-01-2022 MCV (RBC) [Entitic vol] 91.0 fL 80-100 [facility] MCV Auto (RBC) [Entitic vol] Ordered By: Ajit Pettit on 05-01-2022 MCV (RBC) [Entitic vol] 92.6 fL 80-100 [facility] Monocytes Auto (Bld) [#/Vol] Ordered By: Rod Alvarado on 05-01-2022 Monocytes (Bld) [#/Vol] 1.1 10*3/uL 0.0-0.8 [facility] Monocytes Auto (Bld) [#/Vol] Ordered By: Ajit Millanc on 05-01-2022 Monocytes (Bld) [#/Vol] 1.1 10*3/uL 0.0-0.8 [facility] Monocytes/100 WBC Auto (Bld) Ordered By: Rod Alvarado on 05-01-2022 Monocytes/100 WBC (Bld) 6.7 % . [facility] Monocytes/100 WBC Auto (Bld) Ordered By: Ajit Millanc on 05-01-2022 Monocytes/100 WBC (Bld) 7.2 % . [facility] Neutrophils Auto (Bld) [#/Vo l]Ordered By: Rod Alvarado on 05-01-2022 Neutrophils (Bld) [#/Vol] 10.3 10*3/uL 1.8-7.7 [facility] Neutrophils Auto (Bld) [#/Vo l]Ordered By: Ajit Millanc on 05-01-2022 Neutrophils (Bld) [#/Vol] 9.8 10*3/uL 1.8-7.7 [facility] Neutrophils/100 WBC Auto (Bl d)Ordered By: Rod Alvarado on 05-01-2022 Neutrophils/100 WBC (Bld) 64.4 % . [facility] Neutrophils/100 WBC Auto (Bl d)Ordered By: Ajit Millanc on 05-01-2022 Neutrophils/100 WBC (Bld) 66.4 % . [facility] No Panel InformationOrdered By: Rod Alvarado on 05-01-2022 Estimated GFR () > 60 mL/Min [facility] Comment on above: GFR estimated refere nce range: According to KDOQI guidelines, <60 ml/min/1.73m2 is sufficient to diagnose a patient with chronic kidney disease. Pharmacy Creatinine Clearance (Chem 128.97 [facility] No Panel InformationOrdered By: Ajit Pettit on 05-01-2022 Estimated GFR () > 60 mL/Min [facility] Comment on above: GFR estimated refere nce range: According to KDOQI guidelines, <60 ml/min/1.73m2 is sufficient to diagnose a patient with chronic kidney disease. Pharmacy Creatinine Clearance (Chem N/A [facility] Platelet mean volume Auto (B ld) [Entitic vol]Ordered By: Rod Alvarado on 05-01-2022 Platelet mean volume (Bld) [Entitic vol] 7.6 fL 6.3-10.7 [facility] Platelet mean volume Auto (B ld) [Entitic vol]Ordered By: Ajit Pettit on 05-01-2022 Platelet mean volume (Bld) [Entitic vol] 8.1 fL 6.3-10.7 [facility] Platelet poor plasma interna tional normalized ratio (INR) by coagulation assay (relatOrdered By: Rod Alvarado on 05-01-2022 INR Coag (PPP) [Relative time] 0.9 {INR} [facility] Comment on above: INR Therapeutic Rang e [...] 05-01-2022 Platelets (Bld) [#/Vol] 310 10*3/uL 150-450 [facility] Platelets Auto (Bld) [#/Vol] Ordered By: Ajit Pettit on 05-01-2022 Platelets (Bld) [#/Vol] 284 10*3/uL 150-450 [facility] Protein Auto test strip (U) [Mass/Vol]Ordered By: Rod Alvarado on 05-01-2022 Protein (U) [Mass/Vol] Negative Negative [facility] Protein [Mass/volume] in Ser um or PlasmaOrdered By: Ajit Pettit on 05-01-2022 Protein [Mass/Vol] 6.2 g/dL 6.1-7.9 [facility] RBC Auto (Bld) [#/Vol]Ordere d By: Rod Alvarado on 05-01-2022 RBC (Bld) [#/Vol] 4.29 10*6/uL 3.60-5.00 [facility] RBC Auto (Bld) [#/Vol]Ordere d By: Ajit Pettit on 05-01-2022 RBC (Bld) [#/Vol] 4.22 10*6/uL 3.60-5.00 [facility] Serum or plasma alanine george otransferase measurement without P-5'-P (enzymatic activiOrdered By: Ajit Pettit on 05-01-2022 ALT No additional P-5'-P [Catalytic activity/Vol] 17 U/L 10-60 [facility] Serum or plasma albumin/glob ulin mass ratioOrdered By: Ajit Pettit on 05-01-2022 Albumin/Globulin [Mass ratio] 1.4 {ratio} [facility] Serum or plasma alkaline lalo sphatase measurement (enzymatic activity/volume)Ordered By: Ajit Pettit on 05-01-2022 ALP [Catalytic activity/Vol] 52 U/L 32-92 [facility] Serum or plasma aspartate am inotransferase measurement (enzymatic activity/volume)Ordered By: Ajit Pettit on 05-01-2022 AST [Catalytic activity/Vol] 19 U/L 10-42 [facility] Serum or plasma calcium ashwini urement (mass/volume)Ordered By: Rod Alvarado on 05-01-2022 Calcium [Mass/Vol] 9.0 mg/dL 8.2-10.2 [facility] Serum or plasma calcium ashwini urement (mass/volume)Ordered By: Ajit Pettit on 05-01-2022 Calcium [Mass/Vol] 9.2 mg/dL 8.2-10.2 [facility] Serum or plasma chloride jett surement (moles/volume)Ordered By: Rod Alvarado on 05-01-2022 Chloride [Moles/Vol] 101 mmol/L 95-114 [facility] Serum or plasma chloride jett surement (moles/volume)Ordered By: Ajit Pettit on 05-01-2022 Chloride [Moles/Vol] 100 mmol/L 95-114 [facility] Serum or plasma glucose ashwini urement (mass/volume)Ordered By: Rod Alvarado on 05-01-2022 Glucose [Mass/Vol] 110 mg/dL 70-100 [facility] Comment on above: ADA recommended refe rence [...] on 05-01-2022 Glucose [Mass/Vol] 117 mg/dL 70-100 [facility] Comment on above: ADA recommended refe rence [...] Potassium [Moles/Vol] 4.4 mmol/L 3.5-5.1 [facility] Serum or plasma potassium me asurement (moles/volume)Ordered By: Ajit Pettit on 05-01-2022 Potassium [Moles/Vol] 4.4 mmol/L 3.5-5.1 [facility] Serum or plasma sodium measu rement (moles/volume)Ordered By: Rod Alvarado on 05-01-2022 Sodium [Moles/Vol] 135 mmol/L 136-146 [facility] Serum or plasma sodium measu rement (moles/volume)Ordered By: Ajit Pettit on 05-01-2022 Sodium [Moles/Vol] 133 mmol/L 136-146 [facility] Serum or plasma total biliru bin measurement (mass/volume)Ordered By: Rod Alvarado on 05-01-2022 Bilirubin [Mass/Vol] 0.7 mg/dL 0.3-1.2 [facility] Serum or plasma total biliru bin measurement (mass/volume)Ordered By: Ajit Pettit on 05-01-2022 Bilirubin [Mass/Vol] 0.4 mg/dL 0.3-1.2 [facility] Serum or plasma total carbon dioxide measurement (moles/volume)Ordered By: Rod Alvarado on 05-01-2022 CO2 [Moles/Vol] 25.9 mmol/L 22.0-30.0 [facility] Serum or plasma total carbon dioxide measurement (moles/volume)Ordered By: Ajit Pettit on 05-01-2022 CO2 [Moles/Vol] 23.1 mmol/L 22.0-30.0 [facility] Serum or plasma urea nitroge n measurement (mass/volume)Ordered By: Rod Alvarado on 05-01-2022 Urea nitrogen [Mass/Vol] 11 mg/dL 06-26 [facility] Serum or plasma urea nitroge n measurement (mass/volume)Ordered By: Ajit Pettit on 05-01-2022 Urea nitrogen [Mass/Vol] 14 mg/dL 06-26 [facility] Urine appearanceOrdered By: Rod Alvarado on 05-01-2022 Appearance (U) Clear Clear [facility] Urine bacteria detection by automated methodOrdered By: Rod Alvarado on 05-01-2022 Bacteria Auto Ql (U) 1+ None Seen [facility] Urine colorOrdered By: Shady Alvarado on 05-01-2022 Color (U) Yellow Yellow [facility] Urine glucose measurement by automated test strip (mass/volume)Ordered By: Rod Alvarado on 05-01-2022 Glucose Auto test strip (U) [Mass/Vol] Normal mg/dL Normal [facility] Urine hemoglobin detection b y automated test stripOrdered By: Rod Alvarado on 05-01-2022 Hemoglobin Auto test strip Ql (U) Negative Negative [facility] Urine lactic acid measuremen tOrdered By: Rod Alvarado on 05-01-2022 Lactate (U) [Moles/Vol] 1.7 mmol/L 0.5-2.2 [facility] Urine lactic acid measuremen tOrdered By: Ajit Pettit on 05-01-2022 Lactate (U) [Moles/Vol] 2.5 mmol/L 0.5-2.2 [facility] Comment on above: Results called at 1022 on 05/01/22 Results calledat 102 2 on 05/01/22 Urine leukocyte esterase det ection by automated test stripOrdered By: Rod Alvarado on 05-01-2022 Leukocyte esterase Auto test strip Ql (U) 2+ Negative [facility] Urine nitrite detection by a utomated test stripOrdered By: Rod Alvarado on 05-01-2022 Nitrite Auto test strip Ql (U) Negative Negative [facility] Urobilinogen Auto test strip (U) [Mass/Vol]Ordered By: Rod Alvarado on 05-01-2022 Urobilinogen (U) [Mass/Vol] Normal mg/dL Normal [facility] pH Auto test strip (U)Ordere d By: Rod Alvarado on 05-01-2022 pH (U) 1.030 [pH] 1.001-1.03 0 [facility] pH (U) 6.0 [pH] 5.0-9.0 [facility] Basophils Auto (Bld) [#/Vol] Ordered By: Ajit Pettit on 04-30-2022 Basophils (Bld) [#/Vol] 0.2 10*3/uL 0.0-0.2 [facility] Basophils/100 WBC Auto (Bld) Ordered By: Ajit Pettit on 04-30-2022 Basophils/100 WBC (Bld) 0.9 % . [facility] Blood hemoglobin measurement (mass/volume)Ordered By: Ajit Pettit on 04-30-2022 Hemoglobin (Bld) [Mass/Vol] 13.9 g/dL 11.8-15.4 [facility] Blood leukocytes automated c ount (number/volume)Ordered By: Ajit Pettit on 04-30-2022 WBC (Bld) [#/Vol] 19.7 10*3/uL 4.5-11.0 [facility] Body fluid albumin measureme nt (mass/volume)Ordered By: Ajit Pettit on 04-30-2022 Albumin (Body fld) [Mass/Vol] 4.1 g/dL 3.2-5.5 [facility] CT biopsyOrdered By: Ajit corrales on 04-30-2022 Transferrin [Mass/Vol] 352 mg/dL 180-380 [facility] Cholesterol [Mass/volume] in Serum or PlasmaOrdered By: Ajit Pettit on 04-30-2022 Cholesterol [Mass/Vol] 260 mg/dL 140-200 [facility] Comment on above: Chol less than 200 m g/dl low risk Chol 201-239 mg/dl borderline risk Chol 240 mg/dl and greater high risk Chol less than 200 m g/dl low riskChol 201-239 mg/dl borderline riskChol 240 mg/dl and greater high risk Cholesterol in LDL Calc [Mas s/Vol]Ordered By: Ajit Pettit on 04-30-2022 Cholesterol in LDL [Mass/Vol] 134 mg/dL 0-100 [facility] Comment on above: LDL ATP III CLASSIFI [...] 04-30-2022 Cholesterol in VLDL [Mass/Vol] 68 mg/dL [facility] Creatinine and Glomerular fi ltration rate.predicted panel (S/P/Bld)Ordered By: Ajit Pettit on 04-30-2022 Creatinine [Mass/Vol] 0.56 mg/dL 0.44-1.03 [facility] Eosinophils Auto (Bld) [#/Vo l]Ordered By: Ajit Pettit on 04-30-2022 Eosinophils (Bld) [#/Vol] 0.2 10*3/uL 0.0-0.45 [facility] Eosinophils/100 WBC Auto (Bl d)Ordered By: Ajit Pettit on 04-30-2022 Eosinophils/100 WBC (Bld) 1.0 % . [facility] Erythrocyte distribution wid th Auto (RBC) [Ratio]Ordered By: Ajit Pettit on 04-30-2022 Erythrocyte distribution width (RBC) [Ratio] 13.5 % 11.9-15.3 [facility] Estimated glomerular filtrat ion rate (GFR) non- AmericanOrdered By: Ajit Pettit on 04-30-2022 GFR/1.73 sq M.predicted among non-blacks MDRD (S/P/Bld) [Vol rate/Area] > 60 mL/Min [facility] Globulin Calc (S) [Mass/Vol] Ordered By: Ajit Pettit on 04-30-2022 Globulin (S) [Mass/Vol] 2.9 g/dL [facility] Hematocrit Auto (Bld) [Volum e fraction]Ordered By: Ajit Pettit on 04-30-2022 Hematocrit (Bld) [Volume fraction] 42.9 % 34.0-46.4 [facility] Iron [Mass/volume] in Serum or PlasmaOrdered By: Ajit Pettit on 04-30-2022 Iron [Mass/Vol] 51 ug/dL 40-150 [facility] Iron binding capacity [Mass/ volume] in Serum or PlasmaOrdered By: Ajit Pettit on 04-30-2022 Iron binding capacity [Mass/Vol] 493 ug/dL 255-450 [facility] Iron saturation [Mass Fracti on] in Serum or PlasmaOrdered By: Ajit Pettit on 04-30-2022 Iron saturation [Mass fraction] 10.0 % 20-50 [facility] Laboratory - Chemistry and C hemistry - challengeOrdered By: Ajit Pettit on 04-30-2022 Cobalamin (Vitamin B12) [Mass/Vol] 472 pg/mL 180-914 [facility] Laboratory - Hematology and Cell countsOrdered By: Ajit Pettit on 04-30-2022 Nucleated RBC/100 WBC (Bld) [Ratio] 0.2 % 0-0.5 [facility] Lymphocytes Auto (Bld) [#/Vo l]Ordered By: Ajit Pettit on 04-30-2022 Lymphocytes (Bld) [#/Vol] 4.1 10*3/uL 1.00-4.8 [facility] Lymphocytes/100 WBC Auto (Bl d)Ordered By: Ajit Pettit on 04-30-2022 Lymphocytes/100 WBC (Bld) 20.8 % . [facility] MCH Auto (RBC) [Entitic mass ]Ordered By: Ajit Pettit on 04-30-2022 MCH (RBC) [Entitic mass] 30.0 pg 24.7-34.3 [facility] MCHC Auto (RBC) [Mass/Vol]Or dered By: Ajit Pettit on 04-30-2022 MCHC (RBC) [Mass/Vol] 32.4 g/dL 32.0-35.0 [facility] MCV Auto (RBC) [Entitic vol] Ordered By: Ajit Pettit on 04-30-2022 MCV (RBC) [Entitic vol] 92.7 fL 80-100 [facility] Monocytes Auto (Bld) [#/Vol] Ordered By: Ajit Pettit on 04-30-2022 Monocytes (Bld) [#/Vol] 1.3 10*3/uL 0.0-0.8 [facility] Monocytes/100 WBC Auto (Bld) Ordered By: Ajit Pettit on 04-30-2022 Monocytes/100 WBC (Bld) 6.8 % . [facility] Neutrophils Auto (Bld) [#/Vo l]Ordered By: Ajit Pettit on 04-30-2022 Neutrophils (Bld) [#/Vol] 13.9 10*3/uL 1.8-7.7 [facility] Neutrophils/100 WBC Auto (Bl d)Ordered By: Ajit Pettit on 04-30-2022 Neutrophils/100 WBC (Bld) 70.5 % . [facility] No Panel InformationOrdered By: Ajit Pettit on 04-30-2022 25-Hydroxy Vitamin D Total 19.9 ng/mL 30-100 [facility] Comment on above: VITAMIN D STATUS 25( [...] 96(7):1911-30. Estimated GFR () > 60 mL/Min [facility] [facility] Comment on above: GFR estimated refere nce range: According to KDOQI guidelines, <60 ml/min/1.73m2 is sufficient to diagnose a patient with chronic kidney disease. Pharmacy Creatinine Clearance (Chem N/A [facility] Valproic Acid (Depakene) Level 59.8 ug/mL 50.0-100.0 [facility] Comment on above: Last dose: - Platelet mean volume Auto (B ld) [Entitic vol]Ordered By: Ajit Pettit on 04-30-2022 Platelet mean volume (Bld) [Entitic vol] 8.7 fL 6.3-10.7 [facility] Platelets Auto (Bld) [#/Vol] Ordered By: Ajit Pettit on 04-30-2022 Platelets (Bld) [#/Vol] 257 10*3/uL 150-450 [facility] Protein [Mass/volume] in Ser um or PlasmaOrdered By: Ajit Pettit on 04-30-2022 Protein [Mass/Vol] 7.0 g/dL 6.1-7.9 [facility] RBC Auto (Bld) [#/Vol]Ordere d By: Ajit Pettit on 04-30-2022 RBC (Bld) [#/Vol] 4.62 10*6/uL 3.60-5.00 [facility] Serum or plasma alanine george otransferase measurement without P-5'-P (enzymatic activiOrdered By: Ajit Pettit on 04-30-2022 ALT No additional P-5'-P [Catalytic activity/Vol] 20 U/L 10-60 [facility] Serum or plasma albumin/glob ulin mass ratioOrdered By: Ajit Pettit on 04-30-2022 Albumin/Globulin [Mass ratio] 1.4 {ratio} [facility] Serum or plasma alkaline lalo sphatase measurement (enzymatic activity/volume)Ordered By: Ajit Pettit on 04-30-2022 ALP [Catalytic activity/Vol] 54 U/L 32-92 [facility] Serum or plasma aspartate am inotransferase measurement (enzymatic activity/volume)Ordered By: Ajit Pettit on 04-30-2022 AST [Catalytic activity/Vol] 22 U/L 10-42 [facility] Serum or plasma calcium ashwini urement (mass/volume)Ordered By: Ajit Pettit on 04-30-2022 Calcium [Mass/Vol] 9.4 mg/dL 8.2-10.2 [facility] Serum or plasma chloride jett surement (moles/volume)Ordered By: Ajit Pettit on 04-30-2022 Chloride [Moles/Vol] 102 mmol/L 95-114 [facility] Serum or plasma glucose ashwini urement (mass/volume)Ordered By: Ajit Pettit on 04-30-2022 Glucose [Mass/Vol] 115 mg/dL 70-100 [facility] Comment on above: ADA recommended refe rence [...] Cholesterol in HDL [Mass/Vol] 57 mg/dL 35-85 [facility] Comment on above: HDL CHOL ATP-III CLA SSIFICATION Cardiovascular Risk HDL > or equal to 60 mg/dL LOW HDL < 40 mg/dL HIGH HDL CHOL ATP-III CLA SSIFICATION Cardiovascular RiskHDL > or equal to 60 mg/dL LOWHDL < 40 mg/dL HIGH Serum or plasma potassium me asurement (moles/volume)Ordered By: Ajit Pettit on 04-30-2022 Potassium [Moles/Vol] 4.8 mmol/L 3.5-5.1 [facility] Serum or plasma sodium measu rement (moles/volume)Ordered By: Ajit Pettit on 04-30-2022 Sodium [Moles/Vol] 135 mmol/L 136-146 [facility] Serum or plasma total biliru bin measurement (mass/volume)Ordered By: Ajit Pettit on 04-30-2022 Bilirubin [Mass/Vol] 0.2 mg/dL 0.3-1.2 [facility] Serum or plasma total carbon dioxide measurement (moles/volume)Ordered By: Ajit Pettit on 04-30-2022 CO2 [Moles/Vol] 24.2 mmol/L 22.0-30.0 [facility] Serum or plasma total choles terol/high density lipoprotein (HDL) cholesterol mass ratOrdered By: Ajit Pettit on 04-30-2022 Cholesterol.total/Suellen sterol in HDL [Mass ratio] 4.6 {ratio} <5.0 [facility] Serum or plasma urea nitroge n measurement (mass/volume)Ordered By: Ajit Pettit on 04-30-2022 Urea nitrogen [Mass/Vol] 12 mg/dL 9- [facility] TSH DL <= 0.005 mIU/L QnOrde red By: Ajit Pettit on 04-30-2022 TSH Qn 2.89 m[IU]/L 0.45-5.33 [facility] Triglyceride [Mass/volume] i n Serum or PlasmaOrdered By: Ajit Pettit on 04-30-2022 Triglyceride [Mass/Vol] 344 mg/dL 35-149 [facility] Comment on above: TRIG ATP III [...] 01-21-2021 Basophils (Bld) [#/Vol] 0.1 10*3/uL 0.0-0.2 [facility] Basophils/100 WBC Auto (Bld) on 01-21-2021 Basophils/100 WBC (Bld) 1.0 % [facility] Blood hemoglobin measurement (mass/volume)on 01-21-2021 Hemoglobin (Bld) [Mass/Vol] 13.0 g/dL 11.8-15.4 [facility] Blood leukocytes automated c ount (number/volume)on 01-21-2021 WBC (Bld) [#/Vol] 13.2 10*3/uL 4.5-11.0 [facility] Body fluid albumin measureme nt (mass/volume)on 01-21-2021 Albumin (Body fld) [Mass/Vol] 3.7 g/dL 3.2-5.5 [facility] Creatinine and Glomerular fi ltration rate.predicted panel (S/P/Bld)on 01-21-2021 Creatinine [Mass/Vol] 0.67 mg/dL 0.44-1.03 [facility] Eosinophils Auto (Bld) [#/Vo l]on 01-21-2021 Eosinophils (Bld) [#/Vol] 0.1 10*3/uL 0.0-0.45 [facility] Eosinophils/100 WBC Auto (Bl d)on 01-21-2021 Eosinophils/100 WBC (Bld) 0.8 % [facility] Erythrocyte distribution wid th Auto (RBC) [Ratio]on 01-21-2021 Erythrocyte distribution width (RBC) [Ratio] 13.1 % 11.9-15.3 [facility] Estimated glomerular filtrat ion rate (GFR) non- Americanon 01-21-2021 GFR/1.73 sq M.predicted among non-blacks MDRD (S/P/Bld) [Vol rate/Area] > 60 mL/Min [facility] Globulin Calc (S) [Mass/Vol] on 01-21-2021 Globulin (S) [Mass/Vol] 2.7 g/dL [facility] Hematocrit Auto (Bld) [Volum e fraction]on 01-21-2021 Hematocrit (Bld) [Volume fraction] 38.1 % 34.0-46.4 [facility] Laboratory - Chemistry and C hemistry - challengeon 01-21-2021 Cobalamin (Vitamin B12) [Mass/Vol] 341 pg/mL 180-914 [facility] - Hematology and Cell countson 01-21-2021 Nucleated RBC/100 WBC (Bld) [Ratio] 0.2 % 0-0.5 [facility] Lymphocytes Auto (Bld) [#/Vo l]on 01-21-2021 Lymphocytes (Bld) [#/Vol] 3.9 10*3/uL 1.00-4.8 [facility] Lymphocytes/100 WBC Auto (Bl d)on 01-21-2021 Lymphocytes/100 WBC (Bld) 29.4 % [facility] MCH Auto (RBC) [Entitic mass ]on 01-21-2021 MCH (RBC) [Entitic mass] 30.6 pg 24.7-34.3 [facility] MCHC Auto (RBC) [Mass/Vol]on 01-21-2021 MCHC (RBC) [Mass/Vol] 34.1 g/dL 32.0-35.0 [facility] MCV Auto (RBC) [Entitic vol] on 01-21-2021 MCV (RBC) [Entitic vol] 89.6 fL 80-100 [facility] Monocytes Auto (Bld) [#/Vol] on 01-21-2021 Monocytes (Bld) [#/Vol] 1.1 10*3/uL 0.0-0.8 [facility] Monocytes/100 WBC Auto (Bld) on 01-21-2021 Monocytes/100 WBC (Bld) 8.6 % [facility] Neutrophils Auto (Bld) [#/Vo l]on 01-21-2021 Neutrophils (Bld) [#/Vol] 8.0 10*3/uL 1.8-7.7 [facility] Neutrophils/100 WBC Auto (Bl d)on 01-21-2021 Neutrophils/100 WBC (Bld) 60.2 % [facility] No Panel Informationon 01-21 25-Hydroxy Vitamin D Total 25.5 ng/mL 30-100 [facility] Comment on above: VITAMIN D STATUS 25( [place])VITAMIN D RANGE (ng/mL) Deficient <20 Insufficient 20 to <30Sufficient 30 to 100Reference: Jovanni MF,Dominique NC, Gillian NINA, et al. Evaluation,treatment, and prevention of vitamin D deficiency; an Endocrine Society clinical practice guideline. JCEM. 2010; 96(7):1911-30. Estimated GFR () > 60 mL/Min [facility] Comment on above: GFR estimated refere nce range: According to KDOQI guidelines, <60 ml/min/1.73m2 is sufficient to diagnose a patient with chronic kidney disease. Pharmacy Creatinine Clearance (Chem N/A [facility] Valproic Acid (Depakene) Level 74.3 ug/mL 50.0-100.0 [facility] Comment on above: Last dose: - Platelet mean volume Auto (B ld) [Entitic vol]on 01-21-2021 Platelet mean volume (Bld) [Entitic vol] 9.1 fL 6.3-10.7 [facility] Platelets Auto (Bld) [#/Vol] on 01-21-2021 Platelets (Bld) [#/Vol] 261 10*3/uL 150-450 [facility] Protein [Mass/volume] in Ser um or Plasmaon 01-21-2021 Protein [Mass/Vol] 6.4 g/dL 6.1-7.9 [facility] RBC Auto (Bld) [#/Vol]on RBC (Bld) [#/Vol] 4.25 10*6/uL 3.60-5.00 [facility] Serum or plasma alanine george otransferase measurement without P-5'-P (enzymatic activion 01-21-2021 ALT No additional P-5'-P [Catalytic activity/Vol] 14 U/L 10-60 [facility] Serum or plasma albumin/glob ulin mass ratioon 01-21-2021 Albumin/Globulin [Mass ratio] 1.4 {ratio} [facility] Serum or plasma alkaline lalo sphatase measurement (enzymatic activity/volume)on 01-21-2021 ALP [Catalytic activity/Vol] 50 U/L 32-92 [facility] Serum or plasma aspartate am inotransferase measurement (enzymatic activity/volume)on 01-21-2021 AST [Catalytic activity/Vol] 17 U/L 10-42 [facility] Serum or plasma calcium ashwini urement (mass/volume)on 01-21-2021 Calcium [Mass/Vol] 9.5 mg/dL 8.2-10.2 [facility] Serum or plasma chloride jett surement (moles/volume)on 01-21-2021 Chloride [Moles/Vol] 96 mmol/L 95-114 [facility] Serum or plasma glucose ashwini urement (mass/volume)on 01-21-2021 Glucose [Mass/Vol] 117 mg/dL 70-100 [facility] Comment on above: ADA recommended refe rence rangeRandom Glucose Reference Range is dependent on time and content of last meal. Glucose of more than 200 mg/dL in a nonstressed, ambulatory subject supports the diagnosis of Diabetes Mellitus. Serum or plasma potassium me asurement (moles/volume)on 01-21-2021 Potassium [Moles/Vol] 4.3 mmol/L 3.5-5.1 [facility] Serum or plasma sodium measu rement (moles/volume)on 01-21-2021 Sodium [Moles/Vol] 132 mmol/L 136-146 [facility] Serum or plasma total biliru bin measurement (mass/volume)on 01-21-2021 Bilirubin [Mass/Vol] 0.3 mg/dL 0.3-1.2 [facility] Serum or plasma total carbon dioxide measurement (moles/volume)on 01-21-2021 CO2 [Moles/Vol] 23.6 mmol/L 22.0-30.0 [facility] Serum or plasma urea nitroge n measurement (mass/volume)on 01-21-2021 Urea nitrogen [Mass/Vol] 13 mg/dL 06-26 [facility] Albumin [Mass/volume] in Ser um or Plasmaon 11-05-2020 Albumin [Mass/Vol] 4.4 g/dL 3.2-5.5 [facility] Automated basophil %on 11-05 Basophils/100 WBC (Bld) 0.7 % [facility] Automated basophil counton 0 11-05-2020 Basophils (Bld) [#/Vol] 0.1 10*3/uL 0.0-0.2 [facility] Automated blood lymphocyte c ount (number/volume)on 11-05-2020 Lymphocytes (Bld) [#/Vol] 3.5 10*3/uL 1.00-4.8 [facility] Automated blood lymphocyte c ount as percentage of total leukocyteson 11-05-2020 Lymphocytes/100 WBC (Bld) 26.0 % [facility] Automated blood monocyte cou nton 11-05-2020 Monocytes (Bld) [#/Vol] 1.2 10*3/uL 0.0-0.8 [facility] Automated blood platelet cou nt (count/volume)on 11-05-2020 Platelets (Bld) [#/Vol] 317 10*3/uL 150-450 [facility] Automated blood platelet jett n volume measurementon 11-05-2020 Platelet mean volume (Bld) [Entitic vol] 8.2 fL 6.3-10.7 [facility] Automated eosinophil %on Eosinophils/100 WBC (Bld) 0.5 % [facility] Automated eosinophil counton 11-05-2020 Eosinophils (Bld) [#/Vol] 0.1 10*3/uL 0.0-0.45 [facility] Automated erythrocyte distri bution width ratioon 11-05-2020 Erythrocyte distribution width (RBC) [Ratio] 13.0 % 11.9-15.3 [facility] Automated erythrocyte mean c orpuscular hemoglobin (mass per erythrocyte)on 11-05-2020 MCH (RBC) [Entitic mass] 30.2 pg 24.7-34.3 [facility] Automated erythrocyte mean c orpuscular hemoglobin concentration measurement (mass/volon 11-05-2020 MCHC (RBC) [Mass/Vol] 33.9 g/dL 32.0-35.0 [facility] Automated erythrocyte mean c orpuscular volumeon 11-05-2020 MCV (RBC) [Entitic vol] 89.1 fL 80-100 [facility] Automated monocyte %on 11-05 Monocytes/100 WBC (Bld) 8.8 % [facility] Automated neutrophil %on Neutrophils/100 WBC (Bld) 64.0 % [facility] Blood erythrocytes automated count (number/volume)on 11-05-2020 RBC (Bld) [#/Vol] 4.92 10*6/uL 3.60-5.00 [facility] Blood hemoglobin measurement (mass/volume)on 11-05-2020 Hemoglobin (Bld) [Mass/Vol] 14.9 g/dL 11.8-15.4 [facility] Blood leukocytes automated c ount (number/volume)on 11-05-2020 WBC (Bld) [#/Vol] 13.4 10*3/uL 4.5-11.0 [facility] Blood neutrophil count by au tomated method (number/volume)on 11-05-2020 Neutrophils (Bld) [#/Vol] 8.6 10*3/uL 1.8-7.7 [facility] Estimated glomerular filtrat ion rate (GFR) non- Americanon 11-05-2020 GFR/1.73 sq M predicted among non-blacks MDRD (S/P/Bld) [Vol rate/Area] mL/min/{1.73_m2} [facility] Hematocrit [Volume Fraction] of Blood by Automated counton 11-05-2020 Hematocrit (Bld) [Volume fraction] 43.8 % 34.0-46.4 [facility] Otheron 11-05-2020 GFR/1.73 sq M.predicted MDRD (S/P/Bld) [Vol rate/Area] mL/min/{1.73_m2} [facility] Comment on above: GFR estimated refere nce range: According to KDOQI guidelines, <60 ml/min/1.73m2 is sufficient to diagnose a patient with chronic kidney disease. Nucleated RBC/100 WBC (Bld) [Ratio] 0.2 % 0-0.5 [facility]acy Creatinine Clearance (Chem N/A [facility] Protein [Mass/volume] in Ser um or Plasmaon 11-05-2020 Protein [Mass/Vol] 7.2 g/dL 6.1-7.9 [facility] Serum globulin measurement b y calculation (mass/volume)on 11-05-2020 Globulin (S) [Mass/Vol] 2.8 g/dL [facility] Serum glutamate decarboxylas e 65 antibody assay (units/volume)on 11-05-2020 Glutamate decarboxylase 65 Ab Qn (S) <5.0 U/mL [facility] Comment on above: Performed at: [facility] - [facility] [id number] Director: Ana Lee MD, Phone: [phone] Serum nuclear antibody titer on 11-05-2020 Nuclear Ab (S) [Titer] Negative [facility] Comment on above: Negative <1:80 Borde rline 1:80 Positive >1:80Performed at: [facility] - [facility] [address] [id number] Director: Daniel Wen PhD, Phone: [phone] Nuclear Ab (S) [Titer] Negative [facility] Comment on above: Negative <1:80 Borken rline 1:80 Positive >1:80Performed at: [facility] [id number] Director: Daniel Wen PhD, Phone: [phone] Serum or plasma alanine george otransferase measurement without P-5'-P (enzymatic activion 11-05-2020 ALT No additional P-5'-P [Catalytic activity/Vol] 22 U/L 10-60 [facility] Serum or plasma albumin/glob ulin mass ratioon 11-05-2020 Albumin/Globulin [Mass ratio] 1.6 {ratio} [facility] Serum or plasma alkaline lalo sphatase measurement (enzymatic activity/volume)on 11-05-2020 ALP [Catalytic activity/Vol] 60 U/L 32-92 [facility] Serum or plasma aspartate am inotransferase measurement (enzymatic activity/volume)on 11-05-2020 AST [Catalytic activity/Vol] 23 U/L 10-42 [facility] Serum or plasma calcium ashwini urement (mass/volume)on 11-05-2020 Calcium [Mass/Vol] 9.6 mg/dL 8.2-10.2 [facility] Serum or plasma chloride jett surement (moles/volume)on 11-05-2020 Chloride [Moles/Vol] 93 mmol/L 95-114 [facility] Serum or plasma creatinine m easurement with calculation of estimated glomerular filtron 11-05-2020 Creatinine [Mass/Vol] 0.62 mg/dL 0.44-1.03 [facility] Serum or plasma glucose ashwini urement (mass/volume)on 11-05-2020 Glucose [Mass/Vol] 82 mg/dL 70-100 [facility] Comment on above: ADA recommended refe rence rangeRandom Glucose Reference Range is dependent on time and content of last meal. Glucose of more than 200 mg/dL in a nonstressed, ambulatory subject supports the diagnosis of Diabetes Mellitus. Serum or plasma potassium me asurement (moles/volume)on 11-05-2020 Potassium [Moles/Vol] 4.3 mmol/L 3.5-5.1 [facility] Serum or plasma sodium measu rement (moles/volume)on 11-05-2020 Sodium [Moles/Vol] 128 mmol/L 136-146 [facility] Serum or plasma total biliru bin measurement (mass/volume)on 11-05-2020 Bilirubin [Mass/Vol] 0.6 mg/dL 0.3-1.2 [facility] Serum or plasma total carbon dioxide measurement (moles/volume)on 11-05-2020 CO2 [Moles/Vol] 22.8 mmol/L 22.0-30.0 [facility] Serum or plasma urea nitroge n measurement (mass/volume)on 11-05-2020 Urea nitrogen [Mass/Vol] 10 mg/dL 9 [facility] Automated basophil %on 10-22 Basophils/100 WBC (Bld) 0.6 % [facility] Automated basophil counton 0 10-22-2020 Basophils (Bld) [#/Vol] 0.1 10*3/uL 0.0-0.2 [facility] Automated blood lymphocyte c ount (number/volume)on 10-22-2020 Lymphocytes (Bld) [#/Vol] 2.8 10*3/uL 1.00-4.8 [facility] Automated blood lymphocyte c ount as percentage of total leukocyteson 10-22-2020 Lymphocytes/100 WBC (Bld) 23.6 % [facility] Automated blood monocyte cou nton 10-22-2020 Monocytes (Bld) [#/Vol] 1.0 10*3/uL 0.0-0.8 [facility] Automated blood platelet cou nt (count/volume)on 10-22-2020 Platelets (Bld) [#/Vol] 292 10*3/uL 150-450 [facility] Automated blood platelet jett n volume measurementon 10-22-2020 Platelet mean volume (Bld) [Entitic vol] 9.4 fL 6.3-10.7 [facility] Automated eosinophil %on Eosinophils/100 WBC (Bld) 0.5 % [facility] Automated eosinophil counton 10-22-2020 Eosinophils (Bld) [#/Vol] 0.1 10*3/uL 0.0-0.45 [facility] Automated erythrocyte distri bution width ratioon 10-22-2020 Erythrocyte distribution width (RBC) [Ratio] 12.8 % 11.9-15.3 [facility] Automated erythrocyte mean c orpuscular hemoglobin (mass per erythrocyte)on 10-22-2020 MCH (RBC) [Entitic mass] 29.5 pg 24.7-34.3 [facility] Automated erythrocyte mean c orpuscular hemoglobin concentration measurement (mass/volon 10-22-2020 MCHC (RBC) [Mass/Vol] 32.9 g/dL 32.0-35.0 [facility] Automated erythrocyte mean c orpuscular volumeon 10-22-2020 MCV (RBC) [Entitic vol] 89.6 fL 80-100 [facility] Automated monocyte %on 10-22 Monocytes/100 WBC (Bld) 8.7 % [facility] Automated neutrophil %on Neutrophils/100 WBC (Bld) 66.6 % [facility] Blood erythrocytes automated count (number/volume)on 10-22-2020 RBC (Bld) [#/Vol] 4.90 10*6/uL 3.60-5.00 [facility] Blood hemoglobin measurement (mass/volume)on 10-22-2020 Hemoglobin (Bld) [Mass/Vol] 14.5 g/dL 11.8-15.4 [facility] Blood leukocytes automated c ount (number/volume)on 10-22-2020 WBC (Bld) [#/Vol] 12.1 10*3/uL 3.8-11.6 [facility] Blood neutrophil count by au tomated method (number/volume)on 10-22-2020 Neutrophils (Bld) [#/Vol] 8.0 10*3/uL 1.8-7.7 [facility] Body fluid albumin measureme nt (mass/volume)on 10-22-2020 Albumin (Body fld) [Mass/Vol] 4.2 g/dL 3.2-5.5 [facility] Estimated glomerular filtrat ion rate (GFR) non- Americanon 10-22-2020 GFR/1.73 sq M predicted among non-blacks MDRD (S/P/Bld) [Vol rate/Area] mL/min/{1.73_m2} [facility] Hematocrit [Volume Fraction] of Blood by Automated counton 10-22-2020 Hematocrit (Bld) [Volume fraction] 43.9 % 34.0-46.4 [facility] Hematologyon 10-22-2020 Platelets (Bld) [#/Vol] Normal Normal F [facility] Otheron 10-22-2020 25-Hydroxy Vitamin D Total 13.3 ng/mL 30-100 [facility] Comment on above: VITAMIN D STATUS 25( [place])VITAMIN D RANGE (ng/mL) Deficient <20 Insufficient 20 to <30Sufficient 30 to 100Reference: Jovanni MF,Dominique ARORA, Gillian NINA, et al. Evaluation,treatment, and prevention of vitamin D deficiency; an Endocrine Society clinical practice guideline. JCEM. 2010; 96(7):1911-30. Cobalamin (Vitamin B12) [Mass/Vol] 438 pg/mL 180-914 [facility] GFR/1.73 sq M.predicted MDRD (S/P/Bld) [Vol rate/Area] mL/min/{1.73_m2} [facility] Comment on above: GFR estimated refere nce range: According to KDOQI guidelines, <60 ml/min/1.73m2 is sufficient to diagnose a patient with chronic kidney disease. Nucleated RBC/100 WBC (Bld) [Ratio] 0.0 % 0-0.5 [facility] Creatinine Clearance (Chem N/A [facility] Platelet Morphology Comment Normal Normal [facility] Valproic Acid (Depakene) Level 108.9 ug/mL 50.0-100.0 [facility] Comment on above: Last dose: - Protein [Mass/volume] in Ser um or Plasmaon 10-22-2020 Protein [Mass/Vol] 7.1 g/dL 6.1-7.9 [facility] RBC morphologyon 10-22-2020 RBC morphology finding Nom (Bld) Normal [facility] Serum globulin measurement b y calculation (mass/volume)on 10-22-2020 Globulin (S) [Mass/Vol] 2.9 g/dL F [facility] Serum or plasma alanine george otransferase measurement without P-5'-P (enzymatic activion 10-22-2020 ALT No additional P-5'-P [Catalytic activity/Vol] 13 U/L 10-60 [facility] Serum or plasma albumin/glob ulin mass ratioon 10-22-2020 Albumin/Globulin [Mass ratio] 1.4 {ratio} [facility] Serum or plasma alkaline lalo sphatase measurement (enzymatic activity/volume)on 10-22-2020 ALP [Catalytic activity/Vol] 53 U/L 32-92 [facility] Serum or plasma aspartate am inotransferase measurement (enzymatic activity/volume)on 10-22-2020 AST [Catalytic activity/Vol] 15 U/L 10-42 [facility] Serum or plasma calcium ashwini urement (mass/volume)on 10-22-2020 Calcium [Mass/Vol] 9.6 mg/dL 8.2-10.2 [facility] Serum or plasma chloride jett surement (moles/volume)on 10-22-2020 Chloride [Moles/Vol] 96 mmol/L 95-114 [facility] Serum or plasma creatinine m easurement with calculation of estimated glomerular filtron 10-22-2020 Creatinine [Mass/Vol] 0.54 mg/dL 0.44-1.03 [facility] Serum or plasma glucose ashwini urement (mass/volume)on 10-22-2020 Glucose [Mass/Vol] 96 mg/dL 70-100 [facility] Comment on above: ADA recommended refe rence rangeRandom Glucose Reference Range is dependent on time and content of last meal. Glucose of more than 200 mg/dL in a nonstressed, ambulatory subject supports the diagnosis of Diabetes Mellitus. Serum or plasma potassium me asurement (moles/volume)on 10-22-2020 Potassium [Moles/Vol] 4.7 mmol/L 3.5-5.1 [facility] Serum or plasma sodium measu rement (moles/volume)on 10-22-2020 Sodium [Moles/Vol] 130 mmol/L 136-146 [facility] Serum or plasma total biliru bin measurement (mass/volume)on 10-22-2020 Bilirubin [Mass/Vol] 0.3 mg/dL 0.3-1.2 [facility] Serum or plasma total carbon dioxide measurement (moles/volume)on 10-22-2020 CO2 [Moles/Vol] 22.5 mmol/L 22.0-30.0 [facility] Serum or plasma urea nitroge n measurement (mass/volume)on 10-22-2020 Urea nitrogen [Mass/Vol] 5 mg/dL 06-26 [facility] Automated basophil %on 09-23 Basophils/100 WBC (Bld) 0.7 % [facility] Automated basophil counton 1 11-24-2019 Basophils (Bld) [#/Vol] 0.1 10*3/uL 0.0-0.2 [facility] Automated blood lymphocyte c ount (number/volume)on 09-23-2020 Lymphocytes (Bld) [#/Vol] 3.3 10*3/uL 1.00-4.8 [facility] Automated blood lymphocyte c ount as percentage of total leukocyteson 09-23-2020 Lymphocytes/100 WBC (Bld) 27.3 % [facility] Automated blood monocyte cou nton 09-23-2020 Monocytes (Bld) [#/Vol] 1.3 10*3/uL 0.0-0.8 [facility] Automated blood platelet cou nt (count/volume)on 09-23-2020 Platelets (Bld) [#/Vol] 299 10*3/uL 150-450 [facility] Automated blood platelet jett n volume measurementon 09-23-2020 Platelet mean volume (Bld) [Entitic vol] 8.3 fL 6.3-10.7 [facility] Automated eosinophil %on Eosinophils/100 WBC (Bld) 0.7 % [facility] Automated eosinophil counton 09-23-2020 Eosinophils (Bld) [#/Vol] 0.1 10*3/uL 0.0-0.45 [facility] Automated erythrocyte distri bution width ratioon 09-23-2020 Erythrocyte distribution width (RBC) [Ratio] 12.8 % 11.9-15.3 [facility] Automated erythrocyte mean c orpuscular hemoglobin (mass per erythrocyte)on 09-23-2020 MCH (RBC) [Entitic mass] 29.8 pg 24.7-34.3 [facility] Automated erythrocyte mean c orpuscular hemoglobin concentration measurement (mass/volon 09-23-2020 MCHC (RBC) [Mass/Vol] 33.4 g/dL 32.0-35.0 [facility] Automated erythrocyte mean c orpuscular volumeon 09-23-2020 MCV (RBC) [Entitic vol] 89.3 fL 80-100 [facility] Automated monocyte %on 09-23 Monocytes/100 WBC (Bld) 10.8 % F [facility] Automated neutrophil %on Neutrophils/100 WBC (Bld) 60.5 % [facility] Blood erythrocytes automated count (number/volume)on 09-23-2020 RBC (Bld) [#/Vol] 4.72 10*6/uL 3.60-5.00 [facility] Blood hemoglobin measurement (mass/volume)on 09-23-2020 Hemoglobin (Bld) [Mass/Vol] 14.1 g/dL 11.8-15.4 [facility] Blood leukocytes automated c ount (number/volume)on 09-23-2020 WBC (Bld) [#/Vol] 11.9 10*3/uL 3.8-11.6 [facility] Blood neutrophil count by au tomated method (number/volume)on 09-23-2020 Neutrophils (Bld) [#/Vol] 7.2 10*3/uL 1.8-7.7 [facility] Body fluid albumin measureme nt (mass/volume)on 09-23-2020 Albumin (Body fld) [Mass/Vol] 3.9 g/dL 3.2-5.5 [facility] Estimated glomerular filtrat ion rate (GFR) non- Americanon 09-23-2020 GFR/1.73 sq M predicted among non-blacks MDRD (S/P/Bld) [Vol rate/Area] mL/min/{1.73_m2} [facility] Hematocrit [Volume Fraction] of Blood by Automated counton 09-23-2020 Hematocrit (Bld) [Volume fraction] 42.1 % 34.0-46.4 [facility] Otheron 09-23-2020 25-Hydroxy Vitamin D Total 17.0 ng/mL 30-100 [facility] Comment on above: VITAMIN D STATUS 25( [place])VITAMIN D RANGE (ng/mL) Deficient <20 Insufficient 20 to <30Sufficient 30 to 100Reference: Jovanni MF,Dominique NC, Gillian NINA, et al. Evaluation,treatment, and prevention of vitamin D deficiency; an Endocrine Society clinical practice guideline. JCEM. 2010; 96(7):1911-30. GFR/1.73 sq M.predicted MDRD (S/P/Bld) [Vol rate/Area] mL/min/{1.73_m2} [facility] Comment on above: GFR estimated refere nce range: According to KDOQI guidelines, <60 ml/min/1.73m2 is sufficient to diagnose a patient with chronic kidney disease. Nucleated RBC/100 WBC (Bld) [Ratio] 0.1 % 0-0.5 [facility] Creatinine Clearance (Chem N/A [facility] Valproic Acid (Depakene) Level 45.9 ug/mL 50.0-100.0 [facility] Comment on above: Last dose: - Protein [Mass/volume] in Ser um or Plasmaon 09-23-2020 Protein [Mass/Vol] 6.7 g/dL 6.1-7.9 [facility] Serum globulin measurement b y calculation (mass/volume)on 09-23-2020 Globulin (S) [Mass/Vol] 2.8 g/dL F [facility] Serum or plasma alanine george otransferase measurement without P-5'-P (enzymatic activion 09-23-2020 ALT No additional P-5'-P [Catalytic activity/Vol] 15 U/L 10-60 [facility] Serum or plasma albumin/glob ulin mass ratioon 09-23-2020 Albumin/Globulin [Mass ratio] 1.4 {ratio} [facility] Serum or plasma alkaline lalo sphatase measurement (enzymatic activity/volume)on 09-23-2020 ALP [Catalytic activity/Vol] 52 U/L 32-92 [facility] Serum or plasma aspartate am inotransferase measurement (enzymatic activity/volume)on 09-23-2020 AST [Catalytic activity/Vol] 16 U/L 10-42 [facility] Serum or plasma calcium ashwini urement (mass/volume)on 09-23-2020 Calcium [Mass/Vol] 9.2 mg/dL 8.2-10.2 [facility] Serum or plasma chloride jett surement (moles/volume)on 09-23-2020 Chloride [Moles/Vol] 102 mmol/L 95-114 [facility] Serum or plasma creatinine m easurement with calculation of estimated glomerular filtron 09-23-2020 Creatinine [Mass/Vol] 0.67 mg/dL 0.44-1.03 [facility] Serum or plasma glucose ashwini urement (mass/volume)on 09-23-2020 Glucose [Mass/Vol] 122 mg/dL 70-100 [facility] Comment on above: ADA recommended refe rence rangeRandom Glucose Reference Range is dependent on time and content of last meal. Glucose of more than 200 mg/dL in a nonstressed, ambulatory subject supports the diagnosis of Diabetes Mellitus. Serum or plasma potassium me asurement (moles/volume)on 09-23-2020 Potassium [Moles/Vol] 4.8 mmol/L 3.5-5.1 [facility] Serum or plasma sodium measu rement (moles/volume)on 09-23-2020 Sodium [Moles/Vol] 136 mmol/L 136-146 [facility] Serum or plasma total biliru bin measurement (mass/volume)on 09-23-2020 Bilirubin [Mass/Vol] 0.2 mg/dL 0.3-1.2 [facility] Serum or plasma total carbon dioxide measurement (moles/volume)on 09-23-2020 CO2 [Moles/Vol] 23.0 mmol/L 22.0-30.0 [facility] Serum or plasma urea nitroge n measurement (mass/volume)on 09-23-2020 Urea nitrogen [Mass/Vol] 5 mg/dL - [facility] Lab - Other Lab [facility] Lab - Other Lab Results [id number][facility] Summaryon 06-27-2019 Coding Summary CODING DATE: 019 [facility] STATUS: Home PAYOR: Medicaid HMO ADMIT [...] Piña Revised Date Saved: 06/27/2019 12:43 pm [facility] Provider Orderson 06-27-2019 Provider Orders [id number] Provider Orders [id number] .Auto Diff 1on 06-26-2019 Auto Williamson % 9 % Normal -12 [facility] Comment on above: Performed By: #### 1 [id number], [id number] #### [facility] (DEFAULT) [address] [place] [address] 50573 Baso Abs# 0.0 x10 Normal 0.0-0.2 [facility] Comment on above: Performed By: #### 1 [id number], [id number] #### [facility] (DEFAULT) [address] [place] [address] 13928 Basophils/100 WBC (Bld) 0.3 % Normal 0.2-2.0 [facility] Comment on above: Performed By: #### 1 [id number], [id number] #### [facility] (DEFAULT) [address] [place] [address] 72007 Eos Abs# 0.0 x10 Normal 0.0-0.4 [facility] Comment on above: Performed By: #### 1 [id number], [id number] #### [facility] (DEFAULT) [address] [place] [address] 90334 Eosinophils/100 WBC (Bld) 0.4 % Low 0.9-4.0 [facility] Comment on above: Performed By: #### 1 [id number], [id number] #### [facility] (DEFAULT) [address] [place] [address] Lymphocytes (Bld) [#/Vol] 3.7 x10 High 1.3-2.9 [facility] Comment on above: Performed By: #### 1 [id number], [id number] #### [facility] (DEFAULT) [address] [place] [address] Lymphocytes/100 WBC (Bld) 29 % Normal 14-48 [facility] Comment on above: Performed By: #### 1 [id number], [id number] #### [facility] (DEFAULT) [address] [place] [address] Williamson Abs# 1.2 x10 High 0.0-0.8 [facility] Comment on above: Performed By: #### 1 [id number], [id number] #### [facility] (DEFAULT) [address] [place] [address] Neut Abs# 7.7 x10 Normal 1.5-9.2 [facility] Comment on above: Performed By: #### 1 [id number], [id number] #### [facility] (DEFAULT) [address] [place] [address] Neutrophils/100 WBC (Bld) 61 % Normal 44-88 [facility] Comment on above: Performed By: #### 1 [id number], [id number] #### [facility] (DEFAULT) [address] [place] [address] CBC w/ Auto Diffon 9 Erythrocyte distribution width (RBC) [Ratio] 14.0 % Normal 11.5-15.0 [facility] Comment on above: Performed By: #### 1 [id number], [id number] #### [facility] (DEFAULT) [address] [place] [address] Hematocrit (Bld) [Volume fraction] 44.8 % High 33.7-40.4 [facility] Comment on above: Performed By: #### 1 [id number], [id number] #### [facility] (DEFAULT) [address] [place] [address] 92734 Hemoglobin (Bld) [Mass/Vol] 15.1 g/dL Normal 11.3-15.9 [facility] Comment on above: Performed By: #### 1 [id number], [id number] #### [facility] (DEFAULT) [address] [place] [address] Man Diff? Auto Normal [facility] Comment on above: Performed By: #### 1 [id number], [id number] #### [facility] (DEFAULT) [address] [place] [address] MCH (RBC) [Entitic mass] 30 pg Normal 24-34 [facility] Comment on above: Performed By: #### 1 [id number], [id number] #### [facility] (DEFAULT) [address] [place] [address] 83773 MCHC (RBC) [Mass/Vol] 34 g/dL Normal 26-37 [facility] Comment on above: Performed By: #### 1 [id number], [id number] #### [facility] (DEFAULT) [address] [place] [address] 30248 MCV (RBC) [Entitic vol] 89 fL Normal 81-100 [facility] Comment on above: Performed By: #### 1 [id number], [id number] #### [facility] (DEFAULT) [address] [place] [address] 15352 Platelet mean volume (Bld) [Entitic vol] 9.5 fL Normal 6.3-10.2 [facility] Comment on above: Performed By: #### 1 [id number], [id number] #### [facility] (DEFAULT) [address] [place] [address] 81173 Platelets (Bld) [#/Vol] 301 x10 Normal 138-427 M [facility] Comment on above: Performed By: #### 1 [id number], [id number] #### [facility] (DEFAULT) [address] [place] [address] 61840 RBC (Bld) [#/Vol] 5.04 x10 Normal 3.70-5.30 [facility] Comment on above: Performed By: #### 1 [id number], [id number] #### [facility] (DEFAULT) [address] [place] [address] 05609 WBC (Bld) [#/Vol] 12.6 x10 [facility] Comment on above: Performed By: #### 1 [id number], [id number] #### [facility] (DEFAULT) [address] [place] [address] 42830 Lab - Other Lab [facility] - Other Lab Results [id number][facility] Outside Recordson 05-16-2019 Outside Records [id number]#[facility] Outside Records [id number]#[facility] Vital Signs Date Time Vital Sign Value Performing Clinician Facility 07-09-2024 15:23-0400 Diastolic blood pressure 85 mm[Hg] mAbrose Cedeño [facility] 07-09-2024 15:23-0400 Heart rate 80 /min Ambrose Cedeño [facility] 07-09-2024 15:23-0400 Mean blood pressure 97 mm[Hg] Ambrose Cedeño [facility] 07-09-2024 15:23-0400 Respiratory rate 18 /min Ambrose Cedeño [facility] 07-09-2024 15:23-0400 SaO2% (BldA) [Mass fraction] 99 % Ambrose Cedeño [facility] 07-09-2024 15:23-0400 Systolic blood pressure 120 mm[Hg] Ambrose Cedeño [facility] 07-09-2024 14:45-0400 Diastolic blood pressure 78 mm[Hg] Ambrose Davidson [facility] 07-09-2024 14:45-0400 Heart rate 83 /min Ambrose Davidson [facility] 07-09-2024 14:45-0400 Hourly Rounding Ambrose Davidson [facility] 07-09-2024 14:45-0400 Mean blood pressure 91 mm[Hg] Ambrose Davidson [facility] 07-09-2024 14:45-0400 Promise to Return Ambrose Davidson [facility] 07-09-2024 14:45-0400 Respiratory rate 18 /min Ambrose Davidson [facility] 07-09-2024 14:45-0400 SaO2% (BldA) [Mass fraction] 99 % Ambrose Davidson [facility] 07-09-2024 14:45-0400 Systolic blood pressure 118 mm[Hg] Ambrose Davidson [facility] 07-09-2024 13:45-0400 Diastolic blood pressure 89 mm[Hg] Amrbose Davidson [facility] 07-09-2024 13:45-0400 Heart rate 79 /min Ambrose Davidson [facility] 07-09-2024 13:45-0400 Hourly Rounding Ambrose Davidson [facility] 07-09-2024 13:45-0400 Mean blood pressure 95 mm[Hg] Ambrose Davidson [facility] 07-09-2024 13:45-0400 Promise to Return Ambrose Davidson [facility] 07-09-2024 13:45-0400 Respiratory rate 18 /min Ambrose Cedeño [facility] 07-09-2024 13:45-0400 SaO2% (BldA) [Mass fraction] 99 % Ambrose Cedeño [facility] 07-09-2024 13:45-0400 Systolic blood pressure 106 mm[Hg] Ambrose Cedeño [facility] 07-09-2024 12:41-0400 Body temperature 98.24 [degF] Ambrose Cedeño [facility] 07-09-2024 12:41-0400 Heart rate 82 /min Ambrose Cedeño [facility] 07-06-2024 20:55-0400 Diastolic blood pressure 84 mm[Hg] [employer]SEH[employer] COORDINATOR-C Ajit Spasic Work Phone: [facility] 07-06-2024 20:55-0400 Heart rate 98 /min [employer]HOLD COORDINATOR-C Ajit Spasic Work Phone: [facility] 07-06-2024 20:55-0400 Respiratory rate 18 /min [employer]SEHOLD COORDINATOR-C Ajit Spasic Work Phone: [facility] 07-06-2024 20:55-0400 SaO2% (BldA) [Mass fraction] 97 % [employer]SEHOLD COORDINATOR-C Ajit Spasic Work Phone: [facility] 07-06-2024 20:55-0400 Systolic blood pressure 119 mm[Hg] HOUSEHOLD COORDINATOR-C Ajit Spasic Work Phone: [facility] 07-06-2024 16:05-0400 Body height 166.37 cm HOUSEHOLD COORDINATOR-C Ajit Spasic Work Phone: [facility] 07-06-2024 16:05-0400 Body temperature 98.2 [degF] HOUSEHOLD COORDINATOR-C Ajit Spasic Work Phone: [facility] 07-06-2024 16:05-0400 Body weight 66.67 kg HOUSEHOLD COORDINATOR-C Ajit Spasic Work Phone: [facility] 04-11-2024 14:08-0400 Diastolic blood pressure 70 mm[Hg] HOUSEHOLD COORDINATOR-C Ajit Spasic Work Phone: [facility] 04-11-2024 14:08-0400 Heart rate 83 /min HOUSEHOLD COORDINATOR-C Ajit Spasic Work Phone: [facility] 04-11-2024 14:08-0400 SaO2% (BldA) [Mass fraction] 99 % HOUSEHOLD COORDINATOR-C Ajit Spasic Work Phone: [facility] 04-11-2024 14:08-0400 Systolic blood pressure 118 mm[Hg] HOUSEHOLD COORDINATOR-C Ajit Spasic Work Phone: [facility] 03-16-2024 09:55-0400 Diastolic blood pressure 87 mm[Hg] HOUSEHOLD COORDINATOR-C Ajit Spasic Work Phone: [facility] 03-16-2024 09:55-0400 Heart rate 66 /min HOUSEHOLD COORDINATOR-C Ajit Spasic Work Phone: [facility] 03-16-2024 09:55-0400 Respiratory rate 20 /min HOUSEHOLD COORDINATOR-C Ajit Spasic Work Phone: [facility] 03-16-2024 09:55-0400 SaO2% (BldA) [Mass fraction] 99 % HOUSEHOLD COORDINATOR-C Ajit Spasic Work Phone: [facility] 03-16-2024 09:55-0400 Systolic blood pressure 138 mm[Hg] HOUSEHOLD COORDINATOR-C Ajit Spasic Work Phone: [facility] 03-16-2024 07:01-0400 Body height 166.37 cm HOUSEHOLD COORDINATOR-C Ajit Spasic Work Phone: [facility] 03-16-2024 07:01-0400 Body temperature 98.3 [degF] HOUSEHOLD COORDINATOR-C Ajit Spasic Work Phone: [facility] 03-16-2024 07:01-0400 Body weight 69.85 kg HOUSEHOLD COORDINATOR-C Ajit Spasic Work Phone: [facility] 03-08-2024 14:14-0400 Diastolic blood pressure 70 mm[Hg] HOUSEHOLD COORDINATOR-C Ajit Spasic Work Phone: [facility] 03-08-2024 14:14-0400 Heart rate 95 /min HOUSEHOLD COORDINATOR-C Ajit Spasic Work Phone: [facility] 03-08-2024 14:140400 SaO2% (BldA) [Mass fraction] 99 % HOUSEHOLD COORDINATOR-C Ajit Spasic Work Phone: [facility] 03-08-2024 14:14-0400 Systolic blood pressure 122 mm[Hg] HOUSEHOLD COORDINATOR-C Ajit Spasic Work Phone: [facility] 03-01-2024 12:19-0400 Diastolic blood pressure 75 mm[Hg] HOUSEHOLD COORDINATOR-C Ajit Spasic Work Phone: [facility] 03-01-2024 12:19-0400 Heart rate 69 /min HOUSEHOLD COORDINATOR-C Ajit Spasic Work Phone: [facility] 03-01-2024 12:19-0400 Inhaled oxygen flow rate 3 L/min HOUSEHOLD COORDINATOR-C Ajit Spasic Work Phone: [facility] 03-01-2024 12:19-0400 SaO2% (BldA) [Mass fraction] 100 % HOUSEHOLD COORDINATOR-C Ajit Spasic Work Phone: [facility] 03-01-2024 12:19-0400 Systolic blood pressure 130 mm[Hg] HOUSEHOLD COORDINATOR-C Ajit Spasic Work Phone: [facility] 03-01-2024 12:13-0400 Respiratory rate 18 /min HOUSEHOLD COORDINATOR-C Ajit Spasic Work Phone: [facility] 03-01-2024 09:54-0400 Body height 166.37 cm HOUSEHOLD COORDINATOR-C Ajit Spasic Work Phone: [facility] 03-01-2024 09:54-0400 Body weight 69.85 kg HOUSEHOLD COORDINATOR-C Ajit Spasic Work Phone: [facility] 02-21-2024 10:41-0400 Body weight 69.11 kg HOUSEHOLD COORDINATOR-C Ajit Spasic Work Phone: [phone] [place] [address] 02-21-2024 10:41-0400 Diastolic blood pressure 80 mm[Hg] HOUSEHOLD COORDINATOR-C Ajit Spasic Work Phone: [facility] 02-21-2024 10:41-0400 Systolic blood pressure 124 mm[Hg] HOUSEHOLD COORDINATOR-C Ajit Spasic Work Phone: [facility] 10-16-2023 13:00-0500 Diastolic blood pressure 94 mm[Hg] HOUSEHOLD COORDINATOR-C Ajit Spasic Work Phone: [facility] 10-16-2023 13:00-0500 Heart rate 70 /min HOUSEHOLD COORDINATOR-C Ajit Spasic Work Phone: [facility] 10-16-2023 13:00-0500 Respiratory rate 16 /min HOUSEHOLD COORDINATOR-C Ajit Spasic Work Phone: [facility] 10-16-2023 13:00-0500 SaO2% (BldA) [Mass fraction] 97 % HOUSEHOLD COORDINATOR-C Ajit Spasic Work Phone: [facility] 10-16-2023 13:00-0500 Systolic blood pressure 168 mm[Hg] HOUSEHOLD COORDINATOR-C Ajit Spasic Work Phone: [facility] 10-16-2023 09:33-0500 Body height 165.1 cm HOUSEHOLD COORDINATOR-C Ajit Spasic Work Phone: [facility] 10-16-2023 09:33-0500 Body temperature 97.4 [degF] HOUSEHOLD COORDINATOR-C Ajit Spasic Work Phone: [facility] 10-16-2023 09:33-0500 Body weight 77.3 kg HOUSEHOLD COORDINATOR-C Ajit Spasic Work Phone: [facility] 10-09-2023 16:00-0500 Body temperature 97.7 [degF] HOUSEHOLD COORDINATOR-C Ajit Spasic Work Phone: [facility] 10-09-2023 16:00-0500 Diastolic blood pressure 80 mm[Hg] HOUSEHOLD COORDINATOR-C Ajit Spasic Work Phone: [facility] 10-09-2023 16:00-0500 Heart rate 85 /min HOUSEHOLD COORDINATOR-C Ajit Spasic Work Phone: [facility] 10-09-2023 16:00-0500 Respiratory rate 18 /min HOUSEHOLD COORDINATOR-C Ajit Spasic Work Phone: [facility] 10-09-2023 16:00-0500 SaO2% (BldA) [Mass fraction] 99 % HOUSEHOLD COORDINATOR-C Ajit Spasic Work Phone: [facility] 10-09-2023 16:00-0500 Systolic blood pressure 117 mm[Hg] HOUSEHOLD COORDINATOR-C Ajit Spasic Work Phone: [facility] 10-08-2023 01:12-0500 Body height 165.1 cm HOUSEHOLD COORDINATOR-C Ajit Spasic Work Phone: [facility] 10-08-2023 01:12-0500 Body weight 76.65 kg HOUSEHOLD COORDINATOR-C Ajit Spasic Work Phone: [facility] 09-28-2023 13:30-0500 Diastolic blood pressure 87 mm[Hg] HOUSEHOLD COORDINATOR-C Ajit Spasic Work Phone: [facility] 09-28-2023 13:30-0500 Heart rate 94 /min HOUSEHOLD COORDINATOR-C Ajit Spasic Work Phone: [facility] 09-28-2023 13:30-0500 Respiratory rate 18 /min HOUSEHOLD COORDINATOR-C Ajit Spasic Work Phone: [facility] 09-28-2023 13:30-0500 SaO2% (BldA) [Mass fraction] 94 % HOUSEHOLD COORDINATOR-C Ajit Spasic Work Phone: [facility] 09-28-2023 13:30-0500 Systolic blood pressure 131 mm[Hg] HOUSEHOLD COORDINATOR-C Ajit Spasic Work Phone: [facility] 09-28-2023 09:30-0500 Body temperature 97.9 [degF] HOUSEHOLD COORDINATOR-C Ajit Spasic Work Phone: [facility] 09-28-2023 08:51-0500 Inhaled oxygen flow rate 10 L/min HOUSEHOLD COORDINATOR-C Ajit Spasic Work Phone: [facility] 09-28-2023 07:20-0500 Body height 166.37 cm HOUSEHOLD COORDINATOR-C Ajit Spasic Work Phone: [facility] 09-28-2023 07:20-0500 Body mass index (BMI) [Ratio] 27.7 kg/m2 HOUSEHOLD COORDINATOR-C Ajit Spasic Work Phone: [facility] 09-28-2023 07:20-0500 Body weight 76.7 kg HOUSEHOLD COORDINATOR-C Ajit Spasic Work Phone: [facility] 07-13-2023 13:55-0400 Diastolic blood pressure 93 mm[Hg] NA [employer] Work Phone: [facility] 07-13-2023 13:55-0400 Heart rate 87 /min NA [employer] Work Phone: [facility] 07-13-2023 13:55-0400 Respiratory rate 16 /min NA [employer] Work Phone: [facility] 07-13-2023 13:55-0400 SaO2% (BldA) [Mass fraction] 96 % NA [employer] Work Phone: [facility] 07-13-2023 13:55-0400 Systolic blood pressure 133 mm[Hg] NA [employer] Work Phone: [facility] 07-13-2023 13:16-0400 Body temperature 98 [degF] NA [employer] Work Phone: [facility] 07-13-2023 12:51-0400 Inhaled oxygen flow rate 10 L/min NA [employer] Work Phone: [facility] 07-13-2023 12:17-0400 Body height 165.1 cm NA [employer] Work Phone: [facility] 07-13-2023 12:17-0400 Body mass index (BMI) [Ratio] 28.2 kg/m2 NA [employer] Work Phone: [facility] 07-13-2023 12:17-0400 Body weight 77 kg NA [employer] Work Phone: [facility] 05-05-2023 10:18-0400 Diastolic blood pressure 90 mm[Hg] HOUSEHOLD COORDINATOR-C Ajit Spasic Work Phone: [facility] 05-05-2023 10:18-0400 Heart rate 82 /min HOUSEHOLD COORDINATOR-C Ajit Spasic Work Phone: [facility] 05-05-2023 10:18-0400 Respiratory rate 18 /min HOUSEHOLD COORDINATOR-C Ajit Spasic Work Phone: [facility] 05-05-2023 10:18-0400 SaO2% (BldA) [Mass fraction] 98 % HOUSEHOLD COORDINATOR-C Ajit Spasic Work Phone: [facility] 05-05-2023 10:18-0400 Systolic blood pressure 130 mm[Hg] HOUSEHOLD COORDINATOR-C Ajit Spasic Work Phone: [facility] 05-05-2023 09:39-0400 Inhaled oxygen flow rate 3 L/min HOUSEHOLD COORDINATOR-C Ajit Spasic Work Phone: [facility] 05-05-2023 08:43-0400 Body height 165.1 cm HOUSEHOLD COORDINATOR-C Ajit Spasic Work Phone: [facility] 05-05-2023 08:43-0400 Body weight 74.84 kg HOUSEHOLD COORDINATOR-C Ajit Spasic Work Phone: [facility] 04-14-2023 12:08-0400 Diastolic blood pressure 89 mm[Hg] HOUSEHOLD COORDINATOR-C Ajit Spasic Work Phone: [facility] 04-14-2023 12:08-0400 Heart rate 71 /min HOUSEHOLD COORDINATOR-C Ajit Spasic Work Phone: [facility] 04-14-2023 12:08-0400 Respiratory rate 16 /min HOUSEHOLD COORDINATOR-C Ajit Spasic Work Phone: [facility] 04-14-2023 12:08-0400 SaO2% (BldA) [Mass fraction] 97 % HOUSEHOLD COORDINATOR-C Ajit Spasic Work Phone: [facility] 04-14-2023 12:08-0400 Systolic blood pressure 124 mm[Hg] HOUSEHOLD COORDINATOR-C Ajit Spasic Work Phone: [facility] 04-14-2023 11:29-0400 Inhaled oxygen flow rate 3 L/min HOUSEHOLD COORDINATOR-C Ajit Spasic Work Phone: [facility] 04-14-2023 10:19-0400 Body height 165.1 cm HOUSEHOLD COORDINATOR-C Ajit Spasic Work Phone: [facility] 04-14-2023 10:19-0400 Body weight 74.84 kg HOUSEHOLD COORDINATOR-C Ajit Spasic Work Phone: [facility] 04-02-2023 11:30-0400 Body height 166.37 cm Kyler Miramontes Other [employer] Other 04-02-2023 11:30-0400 Body mass index (BMI) [Ratio] 27.04 kg/m2 Kyler Miramontes Other [employer] Other 04-02-2023 11:30-0400 Body weight 74.84 kg Kyler Miramontes Other [employer] Other 04-02-2023 11:30-0400 Diastolic blood pressure 80 mm[Hg] Kyler Miramontes Other [employer] Other 04-02-2023 11:30-0400 Systolic blood pressure 110 mm[Hg] Kyler Miramontes Other [employer] Other 11-18-2022 11:59-0500 Diastolic blood pressure 94 mm[Hg] Services [facility] [employer] Work Phone: [facility] 11-18-2022 11:59-0500 Heart rate 85 /min Services [facility] [employer] Work Phone: [facility] 11-18-2022 11:59-0500 Respiratory rate 16 /min Services [facility] [employer] Work Phone: [facility] 11-18-2022 11:59-0500 SaO2% (BldA) [Mass fraction] 98 % Services [facility] [employer] Work Phone: [facility] 11-18-2022 11:59-0500 Systolic blood pressure 140 mm[Hg] Services [facility] [employer] Work Phone: [facility] 11-18-2022 11:21-0500 Inhaled oxygen flow rate 3 L/min Services [facility] [employer] Work Phone: [facility] 11-18-2022 09:23-0500 Body height 166.37 cm [facility] [employer] Work Phone: [facility] 11-18-2022 09:23-0500 Body weight 74.38 kg [facility] [employer] Work Phone: [facility] 11-03-2022 11:30-0500 Body height 166.37 cm Kyler Miramontes Other [employer] [facility] [employer] Other 11-03-2022 11:30-0500 Diastolic blood pressure 80 mm[Hg] Kyler Miramontes Other [employer] [facility] [employer] Other 11-03-2022 11:30-0500 SaO2% (BldA) [Mass fraction] 98 % Kyler Miramontes Other [employer] [facility] [employer] Other 11-03-2022 11:30-0500 Systolic blood pressure 118 mm[Hg] Kyler Miramontes Other [facility] [employer] Other 07-31-2022 11:50-0400 Blood Pressure Location [email or web address] [facility] 07-31-2022 11:50-0400 Diastolic blood pressure 82 mm[Hg] [email or web address] [facility] 07-31-2022 11:50-0400 Heart rate 70 /min [email or web address] [facility] 07-31-2022 11:50-0400 Respiratory rate 16 /min [email or web address] [facility] 07-31-2022 11:50-0400 Systolic blood pressure 136 mm[Hg] [email or web address] [facility] 05-27-2022 09:13-0400 Body temperature 97.9 [degF] Services [facility] Work Phone: [facility] 05-27-2022 09:13-0400 Body weight 77.11 kg Services [facility] Work Phone: [facility] 05-27-2022 09:13-0400 Diastolic blood pressure 82 mm[Hg] Services [facility] Work Phone: [facility] 05-27-2022 09:13-0400 Heart rate 70 /min Services [facility] Work Phone: [facility] 05-27-2022 09:13-0400 Respiratory rate 20 /min Services [facility] Work Phone: [facility] 05-27-2022 09:130400 SaO2% (BldA) [Mass fraction] 98 % Services [facility] Work Phone: [facility] 05-27-2022 09:13-0400 Systolic blood pressure 121 mm[Hg] Services [facility] Work Phone: [facility] 05-27-2022 08:06-0400 Body height 166.37 cm Services [facility] Senior Work Phone: [facility] 05-01-2022 22:19-0400 Diastolic blood pressure 70 mm[Hg] Services [facility] Senior Work Phone: [facility] 05-01-2022 22:19-0400 Heart rate 86 /min Services [facility] Senior Work Phone: [facility] 05-01-2022 22:19-0400 Respiratory rate 18 /min Services [facility] Senior Work Phone: [facility] 05-01-2022 22:19-0400 SaO2% (BldA) [Mass fraction] 99 % Services [facility] Work Phone: [facility] 05-01-2022 22:19-0400 Systolic blood pressure 138 mm[Hg] Services [facility] Senior Work Phone: [facility] 05-01-2022 17:09-0400 Body height 166.37 cm Services [facility] Work Phone: [facility] 05-01-2022 17:09-0400 Body temperature 99.4 [degF] Services [facility] Senior Work Phone: [facility] 05-01-2022 17:09-0400 Body weight 77.8 kg Services [facility] Senior Work Phone: [facility] 04-29-2022 14:29-0400 Body height 165.1 cm Services [facility] Senior Work Phone: [facility] 04-29-2022 14:29-0400 Body temperature 97.8 [degF] Services [facility] Senior Work Phone: [facility] 04-29-2022 14:29-0400 Body weight 68.03 kg Services [facility] Senior Work Phone: [facility] 04-29-2022 14:29-0400 Diastolic blood pressure 83 mm[Hg] Services [facility] Senior Work Phone: [facility] 04-29-2022 14:29-0400 Heart rate 70 /min Services [facility] Senior Work Phone: [facility] 04-29-2022 14:29-0400 Respiratory rate 16 /min Services [facility] Senior Work Phone: [facility] 04-29-2022 14:29-0400 SaO2% (BldA) [Mass fraction] 100 % Services [facility] Senior Work Phone: [facility] 04-29-2022 14:29-0400 Systolic blood pressure 131 mm[Hg] Services [facility] Senior Work Phone: [facility] 02-19-2022 15:45-0400 Body height 166.37 cm Kyler Fe Other [employer] Other 02-19-2022 15:45-0400 Body mass index (BMI) [Ratio] 27.36 kg/m2 Kyler Miramontes Other [employer] Other 02-19-2022 15:45-0400 Body weight 75.75 kg Kyler Miramontes Other [employer] Other 02-19-2022 15:45-0400 Diastolic blood pressure 64 mm[Hg] Kyler Miramontes Other [employer] Other 02-19-2022 15:45-0400 Systolic blood pressure 110 mm[Hg] Kyler Miramontes Other [employer] Other 01-28-2022 14:00-0400 Body height 166.37 cm Kyler Miramontes Other [employer] Other 01-28-2022 14:00-0400 Body mass index (BMI) [Ratio] 27.27 kg/m2 Kyler Miramontes Other [employer] Other 01-28-2022 14:00-0400 Body weight 75.48 kg Kyler Miramontes Other [employer] Other 01-28-2022 14:00-0400 Diastolic blood pressure 68 mm[Hg] Kyler Miramontes Other [employer] Other 01-28-2022 14:00-0400 Systolic blood pressure 112 mm[Hg] Kyler Miramontes Other [employer] Other 01-14-2022 12:00-0400 Body height 166.37 cm Girish Callaway Other [employer] Other 01-14-2022 12:00-0400 Body mass index (BMI) [Ratio] 25.23 kg/m2 Girish Callaway Other [employer] [facility] [employer] Other 01-14-2022 12:00-0400 Body weight 69.85 kg Girish Callaway Other [employer] Other Encounters Encounter Date Encounter Type Care Provider Facility Start: 09-06-2024 End: 09-06-2024 ambulatory Ajit E Spasic Facility:[facility] Start: 09-05-2024 End: 09-05-2024 ambulatory Abi L Ly Facility:[facility] Start: 07-24-2024 End: 07-24-2024 Patient encounter procedure HOUSEHOLD COORDINATOR-C Ajit Spasic Work Phone: [facility]-Ultrasound Cntr for Breast Car Start: 07-24-2024 End: 07-24-2024 ambulatory HOUSEHOLD COORDINATOR-C Ajit E Spasic Work Phone: [facility] Work Phone: Start: 07-09-2024 End: 07-09-2024 Emergency department patient visit Ambrose Cedeño Facility:[facility] Start: 07-06-2024 End: 07-06-2024 Emergency department patient visit HOUSEHOLD COORDINATOR-C Ajit Spasic Work Phone: [facility]-Emergency Room Work Phone: Start: 07-04-2024 End: 07-04-2024 Patient encounter procedure HOUSEHOLD COORDINATOR-C Ajit Spasic Work Phone: [facility]-Lab [address] [place] Work Phone: Start: 07-04-2024 End: 07-04-2024 ambulatory HOUSEHOLD COORDINATOR-C Ajit E Spasic Work Phone: [facility] Work Phone: Start: 06-08-2024 End: 06-08-2024 Patient encounter procedure HOUSEHOLD COORDINATOR-C Ajit Spasic Work Phone: [facility] [address] Work Phone: Start: 06-08-2024 End: 06-08-2024 ambulatory HOUSEHOLD COORDINATOR-C Ajit E Spasic Work Phone: [facility] Work Phone: Start: 05-16-2024 End: 05-16-2024 ambulatory HOUSEHOLD COORDINATOR-C Ajit E Spasic Work Phone: [facility] Work Phone: Start: 05-16-2024 End: 05-16-2024 Departed Referred HOUSEHOLD COORDINATOR-C Ajit Spasic Work Phone: [facility] Start: 04-11-2024 End: 04-11-2024 ambulatory HOUSEHOLD COORDINATOR-C Ajit E Spasic Work Phone: [facility] Work Phone: Start: 04-11-2024 End: 04-11-2024 Patient encounter procedure HOUSEHOLD COORDINATOR-C Ajit Spasic Work Phone: [facility] Work Phone: Start: 03-16-2024 Non-patient / Non-visit HOUSEHOLD COORDINATOR-C Ajit Spasic Work Phone: [facility] Work Phone: Start: 03-16-2024 End: 03-16-2024 Admission to same day surgery center HOUSEHOLD COORDINATOR-C Ajit Spasic Work Phone: [facility]Digestive Health Work Phone: Start: 03-16-2024 End: 03-16-2024 ambulatory HOUSEHOLD COORDINATOR-C Ajit E Spasic Work Phone: [facility] Work Phone: Start: 03-08-2024 End: 03-08-2024 ambulatory HOUSEHOLD COORDINATOR-C Ajit E Spasic Work Phone: [facility] Work Phone: Start: 03-08-2024 End: 03-08-2024 Patient encounter procedure HOUSEHOLD COORDINATOR-C Ajit Spasic Work Phone: [facility] Work Phone: Start: 03-02-2024 End: 03-02-2024 Patient encounter procedure HOUSEHOLD COORDINATOR-C Ajit Spasic Work Phone: [facility]-XRay [facility] Work Phone: Start: 03-02-2024 End: 03-02-2024 ambulatory HOUSEHOLD COORDINATOR-C Ajit E Spasic Work Phone: [facility] Work Phone: Start: 03-01-2024 Non-patient / Non-visit HOUSEHOLD COORDINATOR-C Ajit Spasic Work Phone: [facility] Work Phone: Start: 03-01-2024 End: 03-01-2024 Admission to same day surgery center HOUSEHOLD COORDINATOR-C Ajit Spasic Work Phone: [facility] Work Phone: Start: 03-01-2024 End: 03-01-2024 ambulatory HOUSEHOLD COORDINATOR-C Ajit E Spasic Work Phone: [facility] Work Phone: Start: 02-21-2024 End: 02-21-2024 ambulatory HOUSEHOLD COORDINATOR-C Ajit E Spasic Work Phone: [facility] Work Phone: Start: 02-21-2024 End: 02-21-2024 Patient encounter procedure HOUSEHOLD COORDINATOR-C Ajit Spasic Work Phone: [facility] Work Phone: Start: 02-09-2024 End: 02-09-2024 Patient encounter procedure HOUSEHOLD COORDINATOR-C Ajit Spasic Work Phone: [facility]-Ultrasound Cntr for Breast Car Start: 02-09-2024 End: 02-09-2024 ambulatory HOUSEHOLD COORDINATOR-C Ajit E Spasic Work Phone: [facility] Work Phone: Start: 02-04-2024 End: 02-04-2024 Patient encounter procedure HOUSEHOLD COORDINATOR-C Ajit Spasic Work Phone: [facility]-Center for Breast Care Work Phone: Start: 02-04-2024 End: 02-04-2024 ambulatory HOUSEHOLD COORDINATOR-C Ajit E Spasic Work Phone: [facility] Work Phone: Start: 01-21-2024 End: 01-21-2024 Patient encounter procedure HOUSEHOLD COORDINATOR-C Ajit Spasic Work Phone: [facility]-Ultrasound [facility] [place] Work Phone: Start: 01-21-2024 End: 01-21-2024 ambulatory HOUSEHOLD COORDINATOR-C Ajit E Spasic Work Phone: [facility] Work Phone: Start: 01-18-2024 End: 01-18-2024 ambulatory Ajit E Spasic [facility] Work Phone: Start: 01-18-2024 End: 01-18-2024 Departed Referred HOUSEHOLD COORDINATOR-C Ajit Spasic Work Phone: [facility] Start: 10-20-2023 End: 10-20-2023 ambulatory CARRI A VISCI Not Available Start: 10-16-2023 End: 10-16-2023 Emergency department patient visit HOUSEHOLD COORDINATOR-C Ajit Spasic Work Phone: [facility]-Emergency Room Work Phone: Start: 10-07-2023 End: 10-09-2023 Evaluation and management of inpatient HOUSEHOLD COORDINATOR-C Ajti Spasic Work Phone: [facility]-[address] Work Phone: Start: 09-28-2023 End: 09-28-2023 Admission to same day surgery center HOUSEHOLD COORDINATOR-C Ajit Spasic Work Phone: [facility]Surgery [facility] [place] Start: 09-28-2023 End: 09-28-2023 ambulatory Ajit E Spasic Facility:[facility] Start: 09-16-2023 End: 09-16-2023 Patient encounter procedure HOUSEHOLD COORDINATOR-C Ajit Spasic Work Phone: [facility]-Pre-Surgical Testing Work Phone: Start: 09-16-2023 End: 09-16-2023 ambulatory HOUSEHOLD COORDINATOR-C Ajit E Spasic Work Phone: [facility] Work Phone: Start: 07-13-2023 End: 07-13-2023 Admission to same day surgery center NA [employer] Work Phone: [facility]gery [facility] [place] Start: 07-13-2023 End: 07-13-2023 ambulatory . [employer] Work Phone: [facility] Work Phone: Start: 06-30-2023 End: 06-30-2023 ambulatory . [employer] Work Phone: [facility] Work Phone: Start: 06-30-2023 End: 06-30-2023 Patient encounter procedure NA [employer] Work Phone: [facility]-Pre-Surgical Testing Work Phone: Start: 05-05-2023 (PROC) PROCEDURE Kyler Miramontes [facility] Out[facility] Start: 05-05-2023 End: 05-05-2023 Admission to same day surgery center HOUSEHOLD COORDINATOR-C Ajit Spasic Work Phone: [facility] Work Phone: Start: 05-05-2023 End: 05-05-2023 ambulatory NON STAFF [facility] Work Phone: Start: 05-04-2023 End: 05-04-2023 ambulatory NON STAFF [facility] Work Phone: Start: 05-04-2023 End: 05-04-2023 Departed Referred HOUSEHOLD COORDINATOR-C Ajit Lariossic Work Phone: [facility] Start: 04-26-2023 End: 04-26-2023 Patient encounter procedure HOUSEHOLD COORDINATOR-C Ajit Lariossic Work Phone: [facility]Lab [facility] [place] Work Phone: Start: 04-14-2023 (PROC) PROCEDURE Kyler Miramontes [facility] Start: 04-14-2023 End: 04-14-2023 Admission to same day surgery center HOUSEHOLD COORDINATOR-C Ajit Spasic Work Phone: [facility] Work Phone: Start: 04-14-2023 End: 04-14-2023 ambulatory NON STAFF [facility] [employer] Other Start: 04-02-2023 End: 04-02-2023 ambulatory Kyler Miramontes Other [facility] [employer] Other Start: 04-02-2023 Office outpatient visit 25 minutes Kyler Miramontes [facility] [place] Start: 02-15-2023 End: 02-15-2023 ambulatory AJIT SPASIC Facility:[facility] Start: 02-09-2023 End: 02-09-2023 ambulatory [facility] Work Phone: [facility] Work Phone: Start: 02-09-2023 End: 02-09-2023 Departed Referred Services [facility] Work Phone: [facility] Start: 01-29-2023 End: 01-29-2023 ambulatory AJIT MILLANJorge Facility:[facility] Start: 11-18-2022 (PROC) PROCEDURE Kyler Miramontes [facility] Start: 11-18-2022 End: 11-18-2022 Admission to same day surgery center Services [facility] Work Phone: [facility] Work Phone: Start: 11-18-2022 End: 11-18-2022 ambulatory Services [facility] Work Phone: [facility] Work Phone: Start: 11-12-2022 End: 11-12-[address] DERICK BORRERO . Facility:[facility] Start: 11-05-2022 End: 11-05-2022 ambulatory Services [facility] Work Phone: [facility] Work Phone: Start: 11-05-2022 End: 11-05-2022 Departed Referred Services [facility] Senior Work Phone: [facility] Services Start: 11-03-2022 End: 11-03-2022 ambulatory Kyler Fe Other [facility] [employer] Other Start: 11-03-2022 Office outpatient visit 25 minutes Kyler Miramontes [facility] Start: 11-03-2022 End: 11-03-2022 Patient encounter procedure Services [facility] Work Phone: [facility]XRay [facility] [place] Work Phone: Start: 11-02-2022 End: 11-02-2022 Patient encounter procedure Joshua SILVEIRA [facility] Start: 09-29-2022 End: 09-29-2022 Patient encounter procedure Joshua SILVEIRA [facility] Start: 08-24-2022 End: 08-24-2022 Patient encounter procedure Joshua SILVEIRA [facility] Start: 07-31-2022 End: 07-31-2022 Patient encounter procedure Joshua SILVEIRA [facility] [place] Start: 07-08-2022 End: 07-08-2022 ambulatory Services [facility] Work Phone: [facility] Work Phone: Start: 07-08-2022 End: 07-08-2022 Patient encounter procedure Services [facility] Work Phone: [facility] [place] Start: 06-24-2022 End: 06-24-2022 Patient encounter procedure Services [facility] Work Phone: [facility]-MRI [facility] [place] Start: 06-17-2022 End: 06-17-2022 Patient encounter procedure Services [facility] Work Phone: [facility]-Ultrasound [facility] [place] Start: 06-09-2022 End: 06-09-2022 Patient encounter procedure Services [facility] Work Phone: [facility]-Ul[facility]ound [facility] [place] Start: 06-02-2022 End: 06-02-2022 Departed Referred Services [facility] Work Phone: [facility] Start: 05-27-2022 End: 05-27-2022 Registered Recurring Services [facility] Work Phone: [facility] Start: 05-07-2022 End: 05-07-2022 Patient encounter procedure Services [facility] Work Phone: [facility] [place] Start: 05-01-2022 End: 05-01-2022 Emergency department patient visit Services [facility] Work Phone: [facility]-Emergency Room Start: 05-01-2022 End: 05-01-2022 Patient encounter procedure Services [facility] Work Phone: [facility]-XRay [facility] [place] Start: 04-30-2022 End: 04-30-2022 Departed Referred Services [facility] Work Phone: [facility] Services Start: 04-29-2022 End: 04-29-2022 Emergency department patient visit Services [facility] Work Phone: [facility]-Emergency Room Start: 03-04-2022 (Procedure) Short Kyler Miramontes [facility] Start: 03-04-2022 End: 03-04-2022 ambulatory Kyler Miramontes Other [employer] Other Start: 02-19-2022 End: 02-19-2022 ambulatory Kyler Fe Other [employer] Other Start: 02-19-2022 Office outpatient visit 25 minutes Kyler Fe [facility] Start: 02-11-2022 (Procedure) Short Kyler Miramontes [facility] Start: 02-11-2022 End: 02-11-2022 ambulatory Kyler Fe Other [employer] Other Start: 01-28-2022 End: 01-28-2022 ambulatory Kyler Fe Other [employer] Other Start: 01-28-2022 Office consultation new/estab patient 60 min Kyler Fe [facility] Start: 01-14-2022 End: 01-14-2022 ambulatory Girish Callaway Other [employer] Other Start: 01-14-2022 Office outpatient ne w 30 minutes Girish Callaway [facility] Neurosurgery Start: 01-21-2021 End: 01-21-2021 Departed Referred Services [facility] Work Phone: -[facility] Services Start: 12-24-2020 End: 12-24-2020 Patient encounter procedure Ajit Lariossic -MRI [facility] Start: 12-03-2020 End: 12-03-2020 Patient encounter procedure Ajit Spasic -MRI [facility] Start: 12-02-2020 End: 12-02-2020 Patient encounter procedure Ajit Spasic -MRI [facility] Start: 11-05-2020 End: 11-05-2020 Departed Referred Ajit Spasic -[facility] Start: 10-22-2020 End: 10-22-2020 Patient encounter procedure Ajit Yanac -XRay [facility] Start: 09-23-2020 End: 09-23-2020 Patient encounter procedure Ajit Spasic -Lab [facility] Procedures Date Procedure Procedure Detail Performing Clinician Start: 07-06-2024 Plain chest X-ray HOUSEHOLD COORDINATOR-C Ajit Spasic Work Phone: Start: 07-06-2024 Computed tomography of abdomen and pelvis with contrast HOUSEHOLD COORDINATOR-C Ajit Spasic Work Phone: Start: 06-08-2024 MR lumbar spine wo con HOUSEHOLD COORDINATOR-C Ajit Spasic Work Phone: Start: 03-16-2024 Screening colonoscopy N P-C Ajit Spasic Work Phone: Start: 03-02-2024 X-ray of lumbar spin e, four views HOUSEHOLD COORDINATOR-C Ajit Spasic Work Phone: Start: 03-01-2024 Injection of local anesthetic into sacroiliac joint HOUSEHOLD COORDINATOR-C Ajit Spasic Work Phone: Start: 02-09-2024 Ultrasonography of r ight breast HOUSEHOLD COORDINATOR-C Ajit Spasic Work Phone: Start: 02-04-2024 Screening mammograph y of bilateral breasts HOUSEHOLD COORDINATOR-C Ajit Spasic Work Phone: Start: 01-21-2024 Ultrasonography of bilateral kidneys HOUSEHOLD COORDINATOR-C Ajit Spasic Work Phone: Start: 10-09-2023 Stool culture for bacteria HOUSEHOLD COORDINATOR-C Ajit Lariossic Work Phone: Start: 10-08-2023 Computed tomography of abdomen and pelvis with contrast HOUSEHOLD COORDINATOR-C Ajit Lariossic Work Phone: Start: 09-28-2023 Total hysterectomy v ia vaginal approach HOUSEHOLD COORDINATOR-C Ajit Lariossic Work Phone: Start: 09-16-2023 Antibody screen Ajit corrales Comment on above: Order Comment: Date of Surgery: [id number] Result Comment: PERF ORMED BY: [facility] [address] [place] [address] PATHOLOGIST RECORD CENTER COORDINATOR RIDGE HUERTA M.D. Start: 07-13-2023 Hysteroscopy NA [facility] Work Phone: Start: 05-05-2023 Injection of local anesthetic into sacroiliac joint HOUSEHOLD COORDINATOR-C Ajit Spasic Work Phone: Start: 05-04-2023 Urine culture [facility] Work Phone: Start: 04-26-2023 Radiography of thora cic spine HOUSEHOLD COORDINATOR-C Ajit Lariossic Work Phone: Start: 04-14-2023 Epidural injection o f lumbar spine using fluoroscopic guidance HOUSEHOLD COORDINATOR-C Ajit Spasic Work Phone: Start: 02-09-2023 Urine culture HOUSEHOLD COORDINATOR-C Piero bee Spasic Work Phone: Start: 11-18-2022 Injection of spinal epidural space Services [facility] Work Phone: Start: 11-05-2022 Urine culture Services [facility] Work Phone: Start: 11-03-2022 X-ray of cervical spine Services [facility] Work Phone: Start: 08-24-2022 Cystourethroscopy wi dilation of urethral stricture Joshua SILVEIRA Start: 06-24-2022 MRI of head Services [facility] Work Phone: Start: 06-17-2022 Transvaginal echography Services [facility] [employer] Work Phone: Start: 06-17-2022 Pelvic echography Servi sharri [facility] [employer] Work Phone: Start: 06-09-2022 US scan of bladder Serv ices [facility] [employer] Work Phone: Start: 05-01-2022 Computed tomography of abdomen and pelvis with contrast Services [facility] [employer] Work Phone: Start: 05-01-2022 X-ray of right knee Ser [facility] [employer] Work Phone: Start: 04-29-2022 X-ray of left ankle Ser [facility] [employer] Work Phone: Start: 12-24-2020 MRI of left [...] for ba cteria, including anaerobic screen Services [facility] [employer] Work Phone: Blood culture for ba cteria, including anaerobic screen Services [facility] [employer] Work Phone: Cholecystectomy Joshua SILVEIRA H/O: hysterectomy S/P hysterectomy HOUSEHOLD COORDINATOR-C L aura Spasic Work Phone: H/O: hysterectomy Status post hysterectomy HOUSEHOLD COORDINATOR-C Ajit Spasic Work Phone: Urine culture Services [facility] Work Phone: Plan of Treatment Date Care Activity Detail Author Start: 07-24-2024 Ultrasonography of right breast US breast RT limited [facility] Start: 03-16-2024 [facility] Start: 03-01-2024 [facility] Start: 10-16-2023 Bacteria identified in Blood by Culture [facility] Start: 10-16-2023 [facility] Start: 10-09-2023 Stool culture Stool Culture [facility] Start: 10-09-2023 [facility] Start: 10-09-2023 Referral to baseball umpire for little league [facility] Start: 10-08-2023 Hospital admission [facility] Start: 10-08-2023 [facility] Start: 10-07-2023 Referral to clinical mold puller [facility] Start: 09-28-2023 Hospital admission [facility] Start: 09-28-2023 [facility] Start: 07-13-2023 End: 07-13-2023 [facility] Start: 05-05-2023 [facility] Start: 05-04-2023 Bacteria identified in Urine by Culture Urine Culture [facility] Start: 05-04-2023 Urine culture Urine Culture [facility] Start: 04-14-2023 [facility] Start: 02-09-2023 Bacteria identified in Urine by Culture [facility] Start: 11-18-2022 [facility] Start: 11-05-2022 Bacteria identified in Urine by Culture [facility] Start: 06-02-2022 End: 06-02-2022 Departed Referred Departed Referred [facility] Start: 05-27-2022 Registered Recurring Iron deficiency [facility] Start: 05-27-2022 [facility] Start: 05-07-2022 End: 05-07-2022 Patient encounter procedure Departed Clinical [facility] [place] Start: 05-01-2022 Computed tomography of abdomen and pelvis with contrast CT abdomen pelvis w con [facility] Start: 05-01-2022 End: 05-01-2022 Emergency department patient visit Departed Emergency [facility]Emergency Room Atopobium vaginae DN A [Presence] in Vaginal fluid by NAYELY with probe detection [facility] Bacterial vaginosis associated bacterium 2 DNA [Presence] in Vaginal fluid by NAYELY with probe detection [facility] Chlamydia trachomati s rRNA [Presence] in Cervix by NAYELY with probe detection [facility] Glucose measurement estimated from glycated hemoglobin [facility] Glucose measurement estimated from glycated hemoglobin [facility] Hemoglobin A1c/Hemoglobin.total in Blood [facility] Human papilloma viru s 16+18+31+33+35+39+45+51+52+ 56+58+59+66+68 DNA [Presence] in Cervix by Probe with signal amplification [facility] Human papilloma viru s 16+18+31+33+35+39+45+51+52+ 56+58+59+68 DNA [Presence] in Cervix by Probe with signal amplification [facility] Megasphaera sp type 1 DNA [Presence] in Vaginal fluid by NAYELY with probe detection [facility] Neisseria gonorrhoea e rRNA [Presence] in Cervix by NAYELY with probe detection [facility] Patient Education [facility] Work Phone: Patient referral [facility] Work Phone: XR Lumbar spine 4 Views [facility] Immunizations Immunization Date Immunization Notes Care Provider Jaret mitchell 09-19-2021 COVID-19 mRNA, Comirnaty (Pfizer) NA [facility] Work Phone: [facility] 08-29-2021 COVID-19 mRNA, Comirnaty (Pfizer) NA [facility] Work Phone: [facility] NEGATED: Highlighted row has not occurred!10-27-2019 influenza virus vaccine, live, attenuated, for intranasal use Joshua SILVEIRA [facility] Payers Date Payer Category Payer Unknown [id number] 2024 Unknown [id number] 2023 Self-pay [id number] 1980 Unknown [id number] 2.16.84 0.1.509221.3.579.2.593 1979 Unknown [id number] 2.16.84 0.1.096404.3.579.2.593 1979 Unknown [id number] 2.16.84 0.1.330142.3.579.2.593 1979 Unknown [id number] 2.16.84 0.1.277140.3.579.2.1259 1979 Unknown [id number] 2.16.8 40.1.689285.3.579.2.727 1979 Unknown [id number] 2.16.8 40.1.122038.3.579.2.727 1979 Unknown [id number] 2.16.8 40.1.142753.3.579.2.727 1960 Medicaid [id number] 50 [id number] Unknown [id number] Unknown [id number] 2.16.8 40.1.997059.3.579.2.531 Unknown [id number] 2.16.8 40.1.879245.3.579.2.531 Unknown [id number] 2.16.8 40.1.919340.3.579.2.531 Unknown [id number] 2.16.8 40.1.998927.3.579.2.531 Unknown [id number] 2.16.8 40.1.037480.3.579.2.531 Unknown [id number] 2.16.8 40.1.297871.3.579.2.531 Unknown [id number] 2.16.8 40.1.969618.3.579.2.531 Unknown [id number] 2.16.8 40.1.863409.3.579.2.531 Unknown [id number] 2.16.8 40.1.478060.3.579.2.531 Unknown [id number] 2.16.8 40.1.154403.3.579.2.531 Unknown [id number] 2.16.8 40.1.712382.3.579.2.531 Unknown [id number] 2.16.8 40.1.081255.3.579.2.531 Unknown [id number] 2.16.8 40.1.551958.3.579.2.531 Unknown [id number] 2.16.8 40.1.913054.3.579.2.531 Unknown [id number] 2.16.8 40.1.045871.3.579.2.531 Unknown [id number] 2.16.8 40.1.931861.3.579.2.531 Unknown [id number] 2.16.8 40.1.799407.3.579.2.531 Unknown [id number] 2.16.8 40.1.841438.3.579.2.531 Social History Date Type Detail Facility Start: 09-25-2019 End: 07-24-2024 Tobacco smoking status NHIS Smoker (finding) [facility] Start: 1980 Sex Assigned At Female [facility] Sex Assigned At [facility] Start: 07-31-2022 Tobacco smoking status Heavy tobacco smoker (finding) [facility] Ana Paula Start: 03-01-2024 End: 03-16-2024 Tobacco smoking status NHIS Current some day smoker [facility] NEGATED: Highlighted row Fir [facility] Goals Date Patient Goal Desired Activity /State Functional Status Date Assessment Result Facility 07-09-2024 Functional Status N/A [facility] 10-09-2023 Functional status Patient at Baseline [facility] Work Phone: 11-02-2022 Functional Status N/A [facility] 08-24-2022 Functional Status N/A [facility] 07-31-2022 Functional Status N/A [facility] Mental Status Date Assessment Result Facility 10-09-2023 Cognitive function Cognitive Sta tus Patient at Baseline [facility] Work Phone: Clinical Notes 01-14-2022 to 07-09-2024 [...] of fat or sugar. General instructions Take begr-moe-igjeloj and prescription medicines only as told by [...] provider. Document Revised: 04/19/2023 Document Reviewed: 04/19/2023 [email or web address] Patient Education 2023 [place]. 07/09/2024 14:17:29 Viral Illness, Adult Viral Illness, [...] Medicines to treat symptoms. These can include hwvi-fhr-omfjuoo medicine for pain and fever, medicines for cough or congestion, and medicines for diarrhea. Antiviral medicines. These medicines are available only for certain types of viruses. Some viral illnesses can be prevented with vaccinations. A common example is the flu shot. Follow these instructions at home: Medicines Take tthq-ise-bzwxape and prescription medicines only as told by [...] and water are not available, use hand mortgage sales manager. Avoid touching your nose, eyes, and mouth, [...] provider. Document Revised: 10/06/2023 Document Reviewed: 07/21/2023 FLIP4NEW Patient Education 2023 [place]. Follow Up Care 07/09/2024 12:40:30 With:AJIT PETTIT Address: [facility] [place] [address]- [facility] (1) When:07/12/2024 14:17:20 Comments:Call the office of [...] you develop any new or worsening symptoms. [facility] 07-09-2024 Note ED Patient Education Note [...] Medicines to treat symptoms. These can include tmyt-nbg-wrupsbl medicine for pain and fever, medicines for cough or congestion, and medicines for diarrhea. ? Antiviral medicines. These medicines are available only for certain types of viruses. Some viral illnesses can be prevented with vaccinations. A common example is the flu shot. Follow these instructions at home: Medicines ? Take bvjk-kxe-xbiuwns and prescription medicines only as told by [...] and water are not available, use hand mortgage sales manager. ? Avoid touching your nose, eyes, and mouth, especial (more content not included)... [facility] 07-09-2024 Note ED Patient Education Note Infectious [...] Medicines to treat symptoms. These can include pnil-ddr-dffpida medicine for pain and fever, medicines for cough or congestion, and medicines for diarrhea. ? Antiviral medicines. These medicines are available only for certain types of viruses. Some viral illnesses can be prevented with vaccinations. A common example is the flu shot. Follow these instructions at home: Medicines ? Take iikv-fri-otuxosc and prescription medicines only as told by [...] and water are not available, use hand mortgage sales manager. ? Avoid touching your nose, eyes, and mouth, especial (more content not included)... [facility] 07-09-2024 Evaluation + Plan note Extrac cherie from: Title:ED Note Author:Ambrose Cedeño DO Date: Malaise (R53.81: Other malai se) Viral syndrome (B34.9: Viral infection, unspecified) Orders: Basic Metabolic Panel Beta hCG Qual CBC w/ Auto Diff ED Cardiac Monitoring eGFR Hepatic Function Panel Oxygen Saturation Oxygen Therapy PT & PTT Saline Lock Insert Troponin 0 Hr. Troponin 1 Hr. XR Chest Single View [facility] 06-13-2024 Procedure [facility]05-29-2024 Procedure [facility]01-06-2024 Discharge summary Author Salazar Cabrera [facility] October 09, 2023 6:42pm Note Date/Time October 09, 2023 1: 22pm [facility] [address] [place] [address] Discharge Summary Signed Patient: Rachel Mcgarry MR#: [id number] : 1980 Acct:[id number] Age/Sex: 43 / F Adm Date: 4 Loc: Room: [address] [place] [address]: Salazar Cabrera DO Copies to: OLEG Sharp APRN Shawn J Warner, DO~ Providers Date of Admission: 10/08/23 Date of Discharge: 10/09/23 Discharging Provider: Salazar Cabrera Additional Discharging Provider: Salazar Cabrera Primary Care Provider: Ajit Pettit Consults: 10/07/23 23:27 Consult to Adult Hospitalist Routine 10/08/23 07:21 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 CT abdomen pelvis done at [place] showed nonspecific hyperemia and thickening of the small bowel distally suggestive of enteritis but nonacute otherwise and no postoperative complications were noted. She was transferred to [facility] for evaluation by recent surgical team. She was noted to have elevated lactate and given IV hydration as well as Zosyn. Lactate resolved with hydration. She had repeat [place] at [place] with bloating and pain increasing with liquid intake unchangedfrom previous and no surgical complications again noted. BOOK AUTHOR services followed ongoing through hospital stay. She was also seen by psychiatry with increase insertraline due to reports of depression and suicidal thoughts, should follow-up with [facility] behavioral health after discharge. Date of discharge [...] % (Auto) 70.1, Lymph % (Auto) 16.5, Williamson % (Auto) 9.5, Eos % (Auto) 3.5, Baso % (Auto) 0.4, Nucleat RBC Rel Count 0.1, Neut # (Auto) 9.6 H, Lymph # (Auto) 2.2, Williamson # (Auto) 1.3 H, Eos # (Auto) [...] - (keep appointment as schedule) Ajit Pettit, HOUSEHOLD COORDINATOR-C [Primary Care Provider] - (call to schedule follow up appointment post hospitalization) Documented By: Ilene Lopez APRN 03/27 1322 Signed By: <Electronically signed by CHRISTINA Lopez> 10/09/23 1627 <Electronically signed by Salazar Cabrera DO> 10/09/23 1842 [facility] Work Phone: 1(478) 219-405901-06-2024 Progress note Author -LINDA Velez [facility] October 09, 2023 8:22am Note Date/Time October 09, 2023 8: 22am [facility] [address] [place] [address] Progress Note Signed Patient: Rachel Mcgarry MR#: [id number] : 1980 Acct:[id number] Age/Sex: 43 / F Adm Date: 4 Loc: Room: [address] [place] [address] Type: ADM IN Attending Dr: Salazar Cabrera [...] % (Auto) 70.1, Lymph % (Auto) 16.5, Williamson % (Auto) 9.5, Eos % (Auto) 3.5, Baso % (Auto) 0.4, Nucleat RBC Rel Count 0.1, Neut # (Auto) 9.6 H, Lymph # (Auto) 2.2, Williamson # (Auto) 1.3 H, Eos # (Auto) 0.5 H, Baso # (Auto) 0.1 10/08/23 22:27: POC Glucose 194 10/08/23 18:21: POC Glucose 265, POC Glucose Comment Glu2: cleaned meter 10/08/23 13:07: POC Glucose 166, POC Glucose Comment Glu2: cleaned meter 10/08/23 10:31: Lactic Acid 1.9 10/08/23 08:20: Urine Color [place] A, Urine Appearance Turbid A, Urine pH 5.5, Ur Specific [place] > 1.050 H, Urine Protein 30 H, [...] <Electronically signed by BONG Velez> 10/09/23 0822 [facility] Work Phone: 1(483) 882-931301-05-2024 Consult note Author Teo crandall [facility] October 08, 2023 4:59pm Note Date/Time October 08, 2023 11 :30am [facility] [address] [place] [address] Psychiatry Consult Note Signed with Addenda Patient: Rachel Mcgarry MR#: [id number] : 1980 Acct:[id number] Age/Sex: 43 / F Adm Date: 4 Loc: Room: [address] [place] [address] Type : ADM IN Attending Dr: Rosanna Grullon MD Copies to: MD Rosanna Rangel MD Laura E Spasic, HOUSEHOLD COORDINATOR-C~ ADDENDUM1 No need for 15 min face check as patient contracts for safety. Addendum Documented By: Teo Taylor MD 10/08/231658 Addendum Signed By: <Electronically signed by Teo Taylor MD> 10/08/23 165 HPI Consult Date: 10/08/23 Requesting Physician: BONG Motley Primary Care Provider: Ajit E Spasic, HOUSEHOLD COORDINATOR-C Consult Narrative HPI: Ms. Mcgarry is a [...] negative unless noted below or in HPI [facility] Medical History (Updated 10/08/23 @ 11:22 by [...] Color Urine Appearance Urine pH Ur Specific Star[place] Urine Protein Urine Glucose (UA) Urine Ketones Urine Occult Blood Urine Nitrite Ur Leukocyte Esterase Urine RBC Urine WBC 10/08/23 08:20 RBC Hgb Hct MCV MCH MCHC RDW Plt Count MPV Sodium Potassium Chloride Carbon Dioxide Anion Gap BUN Creatinine Calcium Total Bilirubin AST ALT Alkaline Phosphatase Total Protein Albumin Urine Color [place] A Urine Appearance Turbid A Urine pH 5.5 Ur Specific [place] > 1.050 H Urine Protein 30 H [...] <Electronically signed by Teo Taylor MD> 10/08/23 6574 [facility] Work Phone: 1(639) 459-908701-05-2024 Progress note Author Salazar Cabrera [facility] October 08, 2023 4:41pm Note Date/Time October 08, 2023 11 :44am [facility] [address] [place] [address] Hospitalist Progress Note Signed Patient: Rachel Mcgarry MR#: [id number] : 1980 Acct:[id number] Age/Sex: 43 / F Adm Date: 4 Loc: Room: [address] [place] [address] Type: ADM IN Attending Dr: Rosanna Grullon [...] Ringers IV 10/06/24 22:59 150 mls/hr .Q6H40M [facility] Infusion Piperacillin Sod/Tazobactam Sod 3.375 gm in 100 mls @ 200 mls/hr 10/08/23 03:30 10/08/23 08:46 Zosyn IV 200 mls/hr Q6H [facility] Administration Ibuprofen 600 mg 10/08/23 02:00 10/08/23 03:32 Ibuprofen 600 Mg Tablet PO 10/07/24 01:59 Not Given Q6H [facility] Insulin Aspart 0 units 10/08/23 06:00 10/08/23 06:27 Insulin Aspart 300 Units/3 Ml Insuln.Pen SUBCUT 10/07/24 05:59 1 units Q6HR [facility] Administration Protocol Ondansetron HCl 4 mg [...] Lactic acidosis chronic leukocytosis -CT abdomen pelvis?from [place] showed nonspecific hyperemia and thickening of small bowel distally suggestive of enteritis, nonacute otherwise, no postsurgical complications noted -Repeat CT abdomen pelvis?increasing bibasilar atelectasis, fatty liver, no bowel or urinary tract obstruction, no pelvic hematoma or significant free fluid, otherwise unchanged CT abdomen pelvis -Initial lactate 3.0--> 2.6--> 2.0--> 1.9 -Continue Zosyn, IVF. Afebrile. Scheduled dicyclomine. 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 She is cleared from the BOOK AUTHOR post op standpoint and we are signing off. Pt will be transferred to a medical floor for continued management. Addendum Documented By: BOGN Velez 10/08/23 1307 Addendum Signed By: <Electronically signed by BONG Velez> 10/08/23 1307 Date of Service: 10/08/2023 BOOK AUTHOR - HPI History of Present Illness Chief Complaint: Abdominal pain with emesis Planned Procedure: S/P TLH 09/28/2023 HPI: Rachel presented to [place] yesterday with abdominal pain/distension and emesis.Her lactic acid was 3.0,WBS 20k in ER,Sodium [address] scan compatible with enteritis. She was transferred to [facility] for observation and treatment. Pt with Chronic leukocytosis as followed by hematology for 2 years Review of Systems Review of Systems All other systems reviewed & are negative unless noted below or in HPI [facility] Medical History (Updated 10/08/23 @ 11:22 by [...] 1,000 mls @ 150 mls/hr IV .Q6H40M [facility] Stop: 10/06/24 22:59 Last Admin: 10/08/23 01:10 Dose: 125 mls/hr Piperacillin Sod/Tazobactam Sod (Zosyn) 3.375 gm in 100 mls @ 200 mls/hr IV Q6HS Last Admin: 10/08/23 03:45 Dose: 200 mls/hr Ibuprofen (Ibuprofen 600 Mg Tablet) 600 mg PO Q6H [facility] Stop: 10/07/24 01:59 Last Admin: 10/08/23 03:32 Dose: Not Given Insulin Aspart (Insulin Aspart 300 Units/3 Ml Insuln.Pen) 0 units SUBCUT Q6HR [facility]; Protocol Stop: 10/07/24 05:59 Last Admin: 10/08/23 06:27 Dose: 1 units Ondansetron HCl (Ondansetron 4 Mg/2 Ml Vial) 4 mg IV-PUSH Q8H PRN PRN Reason: Nausea And Vomiting Stop: 10/06/24 22:53 Ondansetron HCl (Ondansetron Odt 4 Mg Tab.Rapdis) 4 mg PO Q8HR PRN PRN Reason: Nausea And Vomiting Stop: 10/06/24 22:53 BOOK AUTHOR - Exam Physical Exam Vital signs: Temp [...] Present normal affect, suicidal ideation and depressed BOOK AUTHOR - Results Laboratory Results - Last 48 [...] Albumin 3.7, Globulin 2.4, Albumin/Globulin Ratio 1.5 BOOK AUTHOR - A/P (1) Abdominal pain: Plan: Post [...] <Electronically signed by BONG Velez> 10/08/23 1258 [facility] Work Phone: 1(667) 830-893601-05-2024 Consult note Author Rosanna Grullon [facility] October 08, 2023 7:00am Note Date/Time October 08, 2023 1: 06am [facility] [address] [place], [place] [id number] Hospitalist Consult Note Signed Patient: Rachel Mcgarry MR#: [id number] : 1980 Acct:[id number] Age/Sex: 43 / F Adm Date: 4 Loc: Room: [address] [place] [address] Type: ADM IN Attending Dr: Beltran Velez MD Copies to: MD Ajit Davis, MEREDITH-C Namrata Munoz, CHRISTINA Velez MD-NOMS~ HPI DATE OF CONSULTATION: 10/08/23 REQUESTING PROVIDER: Beltran Velez Consult Narrative Reason for Consult: elevated lactic acid, T2DM, leukocytosis HPI: Ms. Mcgarry is a 43-year-old female with a PMH of T2DM, seizure disorder, recent hysterectomy that was transferred here to [facility] to obstetrics for abdominal pain. Hospitalist team has been consulted for management of T2DM, elevated lactic acid and leukocytosis. Patient arrived to the [facility] emergency room via EMS for [...] September 28. She been seen in the [facility] emergency room for vaginal infection and was [...] unless noted in the HPI or below. [facility] Medical History (Updated 10/08/23 @ 01:40 by [...] 10/10/[address] dyereceived at the [facility] Documented By: Namrata Munoz APRN 10/08/23 0106 Signed By: <Electronically signed by CHRISTINA Munoz> 10/08/23 0153 <Electronically signed by Rosanna Grullon MD> 10/08/23 0700 [facility] Work Phone: [phone] 419-621608-02-2023 [facility] noteFire[facility]06-30-2023 Evaluation note* Encounter Date Diagnosis Assessment Notes [...] activities and movements while managing her pain. [employer] Other 01-31-2023 Evaluation note* Encounter Date Diagnosis [...] cervical spine to further evaluate her pain. [employer] Other 01-30-2023 Hospital Discharge instructions Patient Education [...] to keep your urine pale yellow. ?Take hkpa-ufh-zqzjaua or prescription medicines. ?Eat foods that are high in fiber, such as beans, whole grains, and fresh fruits and vegetables. ?Limit foods that are high in fat and processed sugars, such as fried or sweet foods. General instructions Take hckp-qpv-msmmzap and prescription medicines only as told by [...] the muscles that help control urination. Take dpsx-ula-hddnbvu and prescription medicines only as told by your health care provider. Contact a health care provider if your symptoms do not improve or get worse. This information is not intended to replace advice given to you by your health care provider. Make sure you discuss any questions you have with your health care provider. Document Released: 07/17/2010 Document Revised: 03/30/2019 Document Reviewed: 03/30/2019 [employer] Patient Education 2020 [place]. Follow Up Care 10/22/2022 11:17:07 With:Joshua SILVEIRA MD, URL Address: [address] [place] [id number]- [employer] (1) When: Unknown [facility] [id number] Hospital Discharge instructions Patient Education 08/24/2022 15:50:28 [...] Care 07/31/2022 12:32:41 With:Joshua SILVEIRA Address: [address] [place] [id number] [employer] (1) When:6 weeks Comments:Call for followup appointment. Monitor the urinary low after the dilation today. Have a great Thanksgiving. [facility]10-28-2022 Hospital Discharge instructions Patient Education 07/31/2022 [...] including vitamins, herbs, eye drops, creams, and flat-lwh-oiqwmyn medicines. ?Whether you are or may be [...] 07/17/2008 Document Revised: 01/09/2020 Document Reviewed: 07/25/2018 [employer] Patient Education 2020 [employer] Follow Up Care 07/24/2022 16:53:57 With:JORDANA BALDERAS, Joshua Dempsey, URL Address: [address] [place], [place] [id number]- When: Unknown Comments:Cysto/ Urodynamics [facility] [place] [id number] Evaluation note* Encounter Date Diagnosis Assessment Notes [...] and GT bursa injection in the future. [employer] Other 04-27-2022 Evaluation note* Encounter Date Diagnosis [...] progress notes from her referring physician at [facility]. I also independently reviewed previous [...] - M79.7) Continue with medication management through [facility]. I will also refer her [...] negative findings were considered in medical decision-making. [employer] Other 04-13-2022 Evaluation note* Encounter Date Diagnosis [...] 13 Jan, 2022 Fibromyalgia (ICD-10 - M79.7) [employer] Other consoxd note Author Jasmin Velázquez [facility] May 27, 2022 11:47am Note Date/Time May 27, 2022 11 :30am [facility] [place] [address] Hem/Onc Consult Note - OP Signed Patient: Rachel Mcgarry MR#: [id number] : 1980 Acct:[id number] Age/Sex: 42 / F Type: REG RCR Copies to: [facility] HPI Date/Time of Service: Date of Service: 05/27/2022 Time of Service: 11:29 Referring Provider/PCP: Referring Provider: PCP: [facility] - History of Present Illness Reason for Consultation: Leukocytosis Chief Complaint: Patient is here for a referral from Ajit Ptetit for leukocytosis. [facility] labs. Patient states that she has been [...] the process of being referred to a supervisor hand workers. Patient smokes averaging half pack to 1 [...] cancer. Patient is being referred to a supervisor hand workers. We instructed her to call back if there is any concern for further definitive guidance and recommendations - Time with Patient Coordination of Care & Counseling Time: Greater than 50% of time spent with patient was for coordination of care (as documented) and qidz-ft-puzj counseling of patient and/or family. Dictated By: Jasmin Velázquez MD DD/ [id number] Signed By: <Electronically signed by Jasmin Velázquez MD> 05/27/22 1147 [facility] Work Phone: Evaluation + Plan note Future Appointments Appointment Date:08/18/2022 08:00:00 AM Scheduled Provider: Location:[facility] Appointment Type:Urology CALL PAT FT Appointment Date:08/24/2022 02:00:00 PM Scheduled Provider: Location:[facility] Appointment Type:Urology FT Appointment Date:08/24/2022 03:00:00 PM Scheduled Provider: Location:[facility] Appointment Type:Urology FT [facility] Evaluation + Plan note Future Appointments Appointment Date:09/29/2022 10:15:00 AM Scheduled Provider:Joshua SILVEIRA MD Location:[facility] Appointment Type:URO [facility] Future Appointments Appointment Date:12/29/2022 10:45:00 AM Scheduled Provider:Joshua SILVEIRA MD Location:[facility] Appointment Type:URO Office Visit [facility] evaluocnjl noteNo Assessments Information Available [facility] InformationNort RooT Other evaluqxtto note* Diagnosis Onset Date Resolution Status Iron deficiency acute Leucocytosis acute Right ovarian cyst acute [facility] Work Phone: Evaluation noteNo assessment information available [facility] Work Phone: evaluation note* Diagnosis Onset Date Resolution Status Abdominal pain acute Enteritis acute History of depression acute History of leukocytosis acut e IBS (irritable bowel syndrome) acute Leucocytosis acute Metabolic acidosis acute S/P hysterectomy acute T2DM (type 2 diabetes mellitus) acute [facility] Work Phone: evaluation note* Diagnosis Onset Date Resolution Status Chronic pain acute Lumbosacral spondylosis acut e Sacroiliitis acute [facility] Work Phone: Evaluation note* Diagnosis Onset Date Resolution Status Chronic pain acute Lumbosacral spondylosis acut e Sacroiliitis acute Chronic pain acute Lumbar radiculopathy acute Lumbosacral spondylosis acut e Sacroiliitis acute [facility] Work Phone: evaluation note* Diagnosis Onset Date Resolution Status Chronic pain acute Lumbosacral spondylosis acut e Sacroiliitis acute Chronic pain acute Lumbar radiculopathy acute Lumbosacral spondylosis acut e Sacroiliitis acute Chronic pain acute Lumbar radiculopathy acute Lumbosacral spondylosis acut e Sacroiliitis acute [facility] Work Phone: Evaluation note* Diagnosis Onset Date Resolution Status Chronic pain acute Lumbar radiculopathy acute Lumbosacral spondylosis acut e Sacroiliitis acute [facility] Work Phone: History and physical note Author Abi Sunshine [facility] March 16, 2024 8:19am Note Date/Time March 16, 2024 8:20 am [facility] [address] [place] [address] Gastroenterology H&P Signed Patient: Rachel Mcgarry MR#: [id number] : 1980 Acct:[id number] Age/Sex: 44 / F Adm Date: 4 Loc: Room: Type: [facility] Attending Dr: Abi Sunshine DO Copies [...] <Electronically signed by Abi Sunshine DO> 03/16/24818 [facility] Work Phone: History general Narrative - [...] infection, bowel i nfection and flu 2011 [employer] Other History general Narrative - Reported* Type [...] infection, bowel i nfection and flu 2011 [employer] Other Hospital course Narrative No data available for this section [facility] Hospital Discharge instructions No data available for this section [facility] Hospital Discharge instructions Additional Instructions DISCHARGE [...] in an emergency, call the office at [[phone]]. TODAY -Take it easy the rest of [...] FOLLOW UP -Please call the office at [phone] to arrange an appointment to see me in 2 weeks [ ][facility] Work Phone: Hospital Discharge instructions Additional Instructions Follow any previous post-op orders.[facility] Work Phone: Progress note No data available for this section [facility] Reason for visit NarrativeReferral Ajit Pettit NP Lumbar DiscNorth RooT Other Summary Purpose Family History No Family [...] CREATED AUTHOR AUTHOR'S ORGANIZ ATION 02/15/2023 [facility] DATE CREATED AUTHOR AUTHOR'S ORGANIZ ATION 10/21/2023 [facility] EPIC DATE CREATED AUTHOR AUTHOR'S ORGANIZ ATION 07/10/2024 Martin Russell [facility] DATE CREATED AUTHOR AUTHOR'S ORGANIZ ATION 07/14/2024 [facility] DATE CREATED AUTHOR AUTHOR'S ORGANIZ ATION 09/15/2024 [facility] REASON FOR VISIT (unrecogniz ed section and content) LEFT L3,4 TRANSFORAMINAL EPIDURAL STEROID INJ/ELREF BY [facility] FOR LUMBAR DISC HERNIATIONFOLLOW UP AFTER LEFT LTRBILATERAL SACROILIAC JOINT INJECTIONINCREASE BACK PAIN RADIATING LLELEFT L3 AND L4 TRANSFORAMINAL EPIDURAL STEROID INJECTIONF/U INCREASE IN LOW BACK PAIN AND LEFT LE WEAKNESS-LOST TO FOLLOW UP LAST TIMEL4- 5 EPIDURAL STEROID INJ/ELRIGHT SACROILIAC JOINT INJ/EL Care Teams (unrecognized sec tion and content) Team Status: Inactive Member Role Status Dates Services [facility] Primary Care Provider Active Ajit Pettit , HOUSEHOLD COORDINATOR-C Attending Provider Active Team Status: Active Member Role Status Lorie Veláqzuez MD Attending Provider Active Services [facility] Primary Care Provider Active Team Status: Inactive Member Role Status Dates Services [facility] Primary Care Provider Ac raya Alvarado DO Emergency Provider Active Team Status: Inactive Member Role Status Dates Services [facility] Primary Care Provider Ac antonetteve Ajit Pettit , HOUSEHOLD COORDINATOR-C Attending Provider Active Team Status: Inactive Member Role Status Dates Services [facility] Primary Care Provider Ac raya Bergeron APRN Emergency Provider Active Team Status: Active Member Role Status [facility] Primary Care Provider Ac tive Team Status: Inactive Member Role Status Dates Ajit Pettit , HOUSEHOLD COORDINATOR-C Attending Provider Active Services [facility] Primary Care Provider Ac tive Team Status: Inactive Member Role Status Dates Services [facility] Primary Care Provider Ac raya Miramontes MD Attending Provider Active Team Status: Inactive Member Role Status Lorie Pettit , HOUSEHOLD COORDINATOR-C Attending Provider Active Team Status: Active Member Role Status Dates . [facility] Primary Care Provider Active Team Status: Inactive Member Role Status Lorie Miramontes MD Attending Provider Active . [facility] Primary Care Provider Active Team Status: Inactive Member Role Status Lorie Pettit , HOUSEHOLD COORDINATOR-C Attending Provider Active NON STAFF Primary Care Provider Active Team Status: Active Member Role Status Lorie Pettit , HOUSEHOLD COORDINATOR-C Primary Care Provider Active Team Status: Inactive Member Role Status Lorie Pettit , HOUSEHOLD COORDINATOR-C Primary Care Provider, Attending Provider Active Team Status: Inactive Member Role Status Lorie Miramontes MD Attending Provider Active Ajit Pettit , HOUSEHOLD COORDINATOR-C Primary Care Provider Active Team Status: Inactive Member Role Status Lorie Pettit , HOUSEHOLD COORDINATOR-C Primary Care Provider Active Kyler Miramontes MD Attending Provider Active Team Status: Inactive Member Role Status Lorie Pettit , HOUSEHOLD COORDINATOR-C Primary Care Provider Active Carri Manuel DO [...] JULIANA Other Provider Active Silvia Galeas , MOBILE LAB TECHNICIAN Other Provider Active Evan Jackson , DO Other Provider Active Familia Blair MD Other Provider Active Brandon Dowling , DO Other Provider Active Florin Cruz MD Other Provider Active Vivi Holloway MD Other Provider Active Ilene Lopez , MOBILE LAB TECHNICIAN Other Provider Active Lilly Alexandre MD Other Provider Active Rangel Tyler MD Other Provider Active Aidan Cardenas MD Other Provider Active Holden De La Cruz MD Other Provider Active Leodan Catalan , DO Other Provider Active Palma Bright MD Other Provider Active Gabriele Vasquez MD Other Provider Active Karina Colvin , HOUSEHOLD COORDINATOR-C Other Provider Active Gaurav Peraza MD Other Provider Active Mike Guzman MD Other Provider Active Antonio Teague MD Other Provider Active Jorge Galdamez MD Other Provider Active Korutney Longoria , DO Other Provider Active Bola Sullivan , DO Other Provider Active Lazaro Dunne , DO Other Provider Active Elvira Nava , MOBILE LAB TECHNICIAN Other Provider Active Salazar Cabrera , DO Attending Provider, Other Provider Active Naila Lema MD Other Provider Active Namrata Munoz , MOBILE LAB TECHNICIAN Other Provider Active Carole Lundy , MOBILE LAB TECHNICIAN Other Provider Active Rosanna Grullon MD Other Provider Active Girish Tolentino MD Other Provider Active Beryl Holguin , MOBILE LAB TECHNICIAN Other Provider Active Mabel Lackey , DO Other Provider Active Talita Noel , JULIANA Other Provider Active Teo Taylor MD Other Provider Active Ajit Pettit HOUSEHOLD COORDINATOR-C Primary Care Provider Active Team Status: Inactive Member Role Status Dates Ajit Pettit HOUSEHOLD COORDINATOR-C Primary Care Provider Active Diego Noble DO Emergency Provider Active Team Status: Inactive Member Role Status Dates Ajit Pettit HOUSEHOLD COORDINATOR-C Attending Provider Active Start: January 18, 2024 End: January 18, 2024 Team Status: Inactive Member Role Status Dates Ajit E Spasic , HOUSEHOLD COORDINATOR-C Primary Care Provi tirso, Attending Provider Active Start: January 21, 2024 End: January 21, 2024 Team Status: Inactive Member Role Status Dates Ajit Pettit , HOUSEHOLD COORDINATOR-C Primary Care Provi tirso, Attending Provider Active Start: February 04, 2024 End: February 04, 2024 Team Status: Inactive Member Role Status Dates Ajit Pettit , HOUSEHOLD COORDINATOR-C Primary Care Provi tirso, Attending Provider Active Start: February 09, 2024 End: February 09, 2024 Team Status: Inactive Member Role Status Dates Ajit Cat Pettit , HOUSEHOLD COORDINATOR-C Primary Care Provider Active Start: February 21, 2024 End: February 21, 2024 Kyler Miramontes MD Attending Provider Active Sta rt: February 21, 2024 End: February 21, 2024 Team Status: Inactive Member Role Status Dates Ajit Pettit , HOUSEHOLD COORDINATOR-C Primary Care Provider Active Start: March 01, 2024 End: March 01, 2024 Kyler Miramontes MD Attending Provider Active Sta rt: March 01, 2024 End: March 01, 2024 Team Status: Active Member Role Status Dates Ajit Pettit , HOUSEHOLD COORDINATOR-C Primary Care Provider Active Start: March 01, 2024 Kyler Miramontes MD Attending Provider, Other Provider Active Start: March 01, 2024 Team Status: Inactive Member Role Status Dates Ajit Pettit , HOUSEHOLD COORDINATOR-C Primary Care Provider Active Start: March 02, 2024 End: March 02, 2024 Kyler Miramontes MD Attending Provider Active Sta rt: March 02, 2024 End: March 02, 2024 Team Status: Inactive Member Role Status Dates Ajit Pettit , HOUSEHOLD COORDINATOR-C Primary Care Provider Active Start: March 08, 2024 End: March 08, 2024 Kyler Miramontes MD Attending Provider Active Sta rt: March 08, 2024 End: March 08, 2024 Team Status: Inactive Member Role Status Dates Ajit Pettit , HOUSEHOLD COORDINATOR-C Primary Care Provider Active Start: March 16, 2024 End: March 16, 2024 Abi Sunshine DO Attending Provider Active St art: March 16, 2024 End: March 16, 2024 Team Status: Active Member Role Status Dates Ajit Pettit , HOUSEHOLD COORDINATOR-C Primary Care Provider Active Start: March 16, [...] Member Role Status Dates Ajit Pettit , HOUSEHOLD COORDINATOR-C Primary Care Provi tirso, Attending Provider Active Start: June 08, 2024 End: June 08, 2024 Team Status: Inactive Member Role Status Dates Ajit Pettit , HOUSEHOLD COORDINATOR-C Primary Care Provi tirso, Attending Provider Active [...] BE BASED ON THE PRIMARY CLINICAL RECORDS. [employer] provides no warranty or guarantee of the accuracy or completeness of information in this document.
[2024-11-18 20:39] VITALS: O2SAT 100
--- NOTE | 2024-11-18 20:41 | XR_ITS ---
[address] [address] Patient Name: RACHEL MCGARRY MRN: [id number] date: 1980 Sex: F Assigned Patient Location: ER Current Patient Location: Accession/Order Number: [id number] Exam Date: 11/18/2024 20:50 Report Date: 11/18/2024 22:38 At the request of: GUILLE GEIGER Procedure: XR chest 1V EXAM: XR chest 1V , 11/18/2024 HISTORY: Cough COMPARISON: Previous x-ray from 07/15/2024 TECHNIQUE: X-ray of the chest, portable upright AP view. FINDINGS: Cardiac silhouette within normal limits. No hilar or mediastinal enlargement. Lungs and costophrenic angles are clear. No acute osseous findings. No significant interval change. XR/XR chest 1V IMPRESSION: No acute cardiopulmonary findings. Electronically authenticated by: POOJA GOMES Date: 11/18/2024 22:38
--- NOTE | 2024-11-18 20:42 | ED.URI1 ---
HPI - URI/Sore Throat General Chief Complaint: Upper Respiratory Infection Stated Complaint: lightheadedness, cough, body aches Time Seen by Provider: 11/18/24 20:33 Source: patient Limitations: no limitations History of Present Illness HPI Narrative: Patient is a 44-year-old female with a history of seizure disorder, insulin-dependent diabetes who presents to the ER for 3-day history of cough, congestion, right ear pain, sore throat, fevers, body aches, nausea and diarrhea. She has multiple family members that are ill at home, 2 family members have tested positive for influenza. She has not had any vomiting. She has no concern for , previous hysterectomy. No medications taken prior to arrival. Related Data Home Medications ?Medication ?Instructions ?Recorded ?Confirmed cariprazine 1.5 mg capsule 1.5 mg PO DAILY 04/20/23 11/18/24 (Vraylar) divalproex 250 mg tablet,delayed 250 mg PO DAILY 04/20/23 11/18/24 release divalproex 500 mg tablet,extended 500 mg PO DAILY 04/20/23 11/18/24 release 24 hr doxazosin 2 mg tablet 2 mg PO DAILY 04/20/23 11/18/24 ergocalciferol (vitamin D2) 1,250 1,250 mcg PO DAILY 04/20/23 11/18/24 mcg (50,000 unit) capsule ferrous sulfate 325 mg (65 mg 325 mg PO DAILY 04/20/23 11/18/24 iron) tablet (FeroSul) gabapentin 800 mg tablet 800 mg PO DAILY 04/20/23 07/15/24 metformin 500 mg tablet,extended 500 mg PO DAILY 04/20/23 04/03/24 release 24 hr dulaglutide 3 mg/0.5 mL 3 mg subcut .weekly 03/26/24 11/18/24 subcutaneous pen injector (Trulicity) meloxicam 15 mg tablet 15 mg PO DAILY 03/26/24 11/18/24 multivitamin-ferrous 1 tab PO Q24H 03/26/24 11/18/24 fumarate-folic acid 18 mg-400 mcg tablet (Spectravite Women) sertraline 100 mg tablet 100 mg PO Q24H 03/26/24 11/18/24 simvastatin 20 mg tablet 20 mg PO DAILY 03/26/24 11/18/24 tizanidine 4 mg tablet 4 mg PO Q8H PRN muscle spasticity 03/26/24 11/18/24 diazepam 10 mg tablet 10 mg PO QPM 11/18/24 11/18/24 melatonin 10 mg capsule 10 mg PO QPM 11/18/24 11/18/24 promethazine 25 mg tablet 25 mg PO BID PRN nausea and 11/18/24 11/18/24 vomiting sertraline 50 mg tablet 50 mg PO DAILY 11/18/24 11/18/24 Previous Rx's ?Medication ?Instructions ?Recorded yipivdsuggfrozl-eqhfqwwknuslxnu-TQ 10 ml PO Q6H PRN cold symptoms 11/18/24 2 mg-30 mg-10 mg/5 mL oral syrup #200 mL (Bromfed DM) ondansetron 4 mg disintegrating 4 mg PO Q6H PRN nausea and 11/18/24 tablet vomiting #12 tabs Allergies Allergy/AdvReac Type Severity Reaction Status Date / Time metoclopramide (From Reglan) Allergy Intermediate shaking Verified 07/15/24 23:03 amitriptyline Allergy dizzy Verified 07/15/24 23:03 latex Allergy hives Verified 07/15/24 23:03 sulfamethoxazole (From Allergy Hives Verified 07/15/24 23:03 Bactrim) tramadol (From Ultram) Allergy seizures Verified 07/15/24 23:03 trimethoprim (From Bactrim) Allergy Hives Verified 07/15/24 23:03 Review of Systems ROS Constitutional Reports: fever and chills Ears, nose, mouth, and throat Reports: throat pain and nasal congestion Cardiovascular Reports: lightheadedness; Denies: chest pain Respiratory Reports: shortness of breath and cough Gastrointestinal Reports: nausea and diarrhea; Denies: vomiting Integumentary/Breast Denies: rash Neurological Reports: headache; Denies: numbness in extremities or weakness in extremities Hematologic/Lymphatic Denies: easy bruising or easy bleeding PFSH PFSH Social History Smoking status: Current every day smoker Little interest or pleasure in doing things: not at all Feeling down, depressed, or hopeless: not at all Exam Narrative Exam Narrative: Gen.: Awake, alert, in no distress Head: Normocephalic, atraumatic ENT: Moist mucous membranes, bilateral TMs are bulging and clear Respiratory: No respiratory distress, lungs clear bilaterally, no coughing or wheezing noted Cardio: Regular rate and rhythm Extremities: Moves extremities equally Psych: Normal mood and affect Neuro: No focal neuro deficit Skin: Warm, dry, intact Constitutional Vital Signs, click to edit/add: Last Vital Signs Temp 98.4 F 11/18/24 20:33 Pulse 102 H 11/18/24 20:33 Resp 16 11/18/24 20:33 BP 143/94 H 11/18/24 20:33 Pulse Ox 100 11/18/24 20:39 O2 Del Method Room Air 11/18/24 20:39 Course Vital Signs Vital signs: Vital Signs Temperature 98.4 F 11/18/24 20:33 Pulse Rate 102 H 11/18/24 20:33 Respiratory Rate 16 11/18/24 20:33 Blood Pressure 143/94 H 11/18/24 20:33 Pulse Oximetry 100 11/18/24 20:33 Oxygen Delivery Method Room Air 11/18/24 20:33 Temperature 98.4 F 11/18/24 20:33 Pulse Rate 102 H 11/18/24 20:33 Respiratory Rate 16 11/18/24 20:33 Blood Pressure 143/94 H 11/18/24 20:33 Pulse Oximetry 100 11/18/24 20:39 Oxygen Delivery Method Room Air 11/18/24 20:39 MDM - URI/Sore Throat MDM Narrative Medical decision making narrative: Patient is negative for influenza and COVID, chest x-ray appears unremarkable and she is stable vital signs. Pharmacy records show that the patient just finished a steroid taper, we will avoid additional steroids due to her history of diabetes. She was treated with Hycodan and Zofran in the ER. Exam is consistent with viral upper respiratory infection. She is given Bromfed-DM and Zofran for home. Follow-up with PCP for reevaluation and return to the ER if symptoms change or worsen SUPERVISED APC VISIT, PHYSICIAN ATTESTATION: Based on the medical record the care appears appropriate. ? Medical Records Attestation: I reviewed the patient's medical records. Lab Data Attestation: I reviewed the patient's lab results. Labs: Lab Results 11/18/24 Range/Units 20:36 Influenza Type A Ag Negative Influenza Type B Ag Negative SARS-CoV-2 Ag (CV2AG) Negative (NEGATIVE) Imaging Data Chest x-ray: Attestation: I have reviewed the pertinent imaging results. Discharge Plan Discharge Chief Complaint: Upper Respiratory Infection Clinical Impression: Upper respiratory infection Patient Disposition: Home, Self-Care Time of Disposition Decision: 21:00 Condition: Good Prescriptions / Home Meds: New pyykmhbyqzcqbxk-ichubaqhs-ZE [Bromfed DM] 2-30-10 mg/5 mL syrup 10 ml PO Q6H PRN (Reason: cold symptoms) Qty: 200 0RF ondansetron 4 mg tablet,disintegrating 4 mg PO Q6H PRN (Reason: nausea and vomiting) Qty: 12 0RF No Action Trulicity 3 mg/0.5 mL pen injector 3 mg SUBCUT .weekly meloxicam 15 mg tablet 15 mg PO DAILY Spectravite Women 18-400 mg-mcg tablet 1 tab PO Q24H sertraline 100 mg tablet 100 mg PO Q24H simvastatin 20 mg tablet 20 mg PO DAILY tizanidine 4 mg tablet 4 mg PO Q8H PRN (Reason: muscle spasticity) Vraylar 1.5 mg capsule 1.5 mg PO DAILY divalproex 250 mg tablet,delayed release (DR/EC) 250 mg PO DAILY divalproex 500 mg tablet extended release 24 hr 500 mg PO DAILY doxazosin 2 mg tablet 2 mg PO DAILY ergocalciferol (vitamin D2) 1,250 mcg (50,000 unit) capsule 1,250 mcg PO DAILY ferrous sulfate [FeroSul] 325 mg (65 mg iron) tablet 325 mg PO DAILY gabapentin 800 mg tablet 800 mg PO DAILY metformin 500 mg tablet extended release 24 hr 500 mg PO DAILY diazepam 10 mg tablet 10 mg PO QPM melatonin 10 mg capsule 10 mg PO QPM promethazine 25 mg tablet 25 mg PO BID PRN (Reason: nausea and vomiting) sertraline 50 mg tablet 50 mg PO DAILY Print Language: Nepali Instructions: Upper Respiratory Infection (ED) Referrals: [facility] [Primary Care Provider] - 1 week
[2024-11-18 20:57] LABS: Influenza Virus A Antigen Negative; Influenza Virus B Antigen Negative; Internal Control Within Normal Limits; SARS-CoV-2 Ag NEGATIVE (NEGATIVE)
[2024-11-18] MEDS: HYDROCODONE BIT/HOMATROP 5 MG/1.5 MG TABLET 1 TAB PO (21:00)
[2024-11-18] MEDS: ONDANSETRON 4 MG RAPDIS TABLET SL (21:00)
== END 2024-11-18 21:08 | disposition home or self-care (01) ==
PROVIDERS: Physician Assistant; Emergency Provider Student in an Organized Health Care Education/Training Program
DX: J06.9 Acute upper respiratory infection, unspecified (principal); G40.909 Epilepsy, unspecified, not intractable, without status epilepticus; E11.9 Type 2 diabetes mellitus without complications; Z90.710 Acquired absence of both cervix and uterus; Z79.85 Long-term (current) use of injectable non-insulin antidiabetic drugs; Z79.84 Long term (current) use of oral hypoglycemic drugs; F17.200 Nicotine dependence, unspecified, uncomplicated
CPT/HCPCS: 71045; 87804; 87811; 99285; Q0162

== ENCOUNTER 2025-01-18 15:36 | Emergency (ER) | payer OTHER, SELFPAY ==
[2025-01-18 15:40] VITALS: BP 138/89; PULSE 98; TEMP 36.7; O2SAT 98; BMI 24.1
--- NOTE | 2025-01-18 15:49 | ED_ITS ---
HPI HPI - General Adult General Chief complaint: Urogenital-Female Stated complaint: BLADDER PAIN Time Seen by Provider: 01/18/25 15:46 Source: patient Mode of arrival: walk-in History of Present Illness HPI narrative: 45-year-old female presents for urinary bladder pain. She states that started a week ago and she had a sharp pain. She has been having frequency of urination but no dysuria or hematuria. No fever or flank pain or vomiting. Related Data Home Medications ?Medication ?Instructions ?Recorded ?Confirmed cariprazine 1.5 mg capsule 1.5 mg PO DAILY 04/20/23 11/18/24 (Vraylar) divalproex 250 mg tablet,delayed 250 mg PO DAILY 04/20/23 11/18/24 release divalproex 500 mg tablet,extended 500 mg PO DAILY 04/20/23 11/18/24 release 24 hr doxazosin 2 mg tablet 2 mg PO DAILY 04/20/23 11/18/24 ergocalciferol (vitamin D2) 1,250 1,250 mcg PO DAILY 04/20/23 11/18/24 mcg (50,000 unit) capsule ferrous sulfate 325 mg (65 mg 325 mg PO DAILY 04/20/23 11/18/24 iron) tablet (FeroSul) gabapentin 800 mg tablet 800 mg PO DAILY 04/20/23 07/15/24 metformin 500 mg tablet,extended 500 mg PO DAILY 04/20/23 04/03/24 release 24 hr dulaglutide 3 mg/0.5 mL 3 mg subcut .weekly 03/26/24 11/18/24 subcutaneous pen injector (Trulicity) meloxicam 15 mg tablet 15 mg PO DAILY 03/26/24 11/18/24 multivitamin-ferrous 1 tab PO Q24H 03/26/24 11/18/24 fumarate-folic acid 18 mg-400 mcg tablet (Spectravite Women) sertraline 100 mg tablet 100 mg PO Q24H 03/26/24 11/18/24 simvastatin 20 mg tablet 20 mg PO DAILY 03/26/24 11/18/24 tizanidine 4 mg tablet 4 mg PO Q8H PRN muscle spasticity 03/26/24 11/18/24 diazepam 10 mg tablet 10 mg PO QPM 11/18/24 11/18/24 melatonin 10 mg capsule 10 mg PO QPM 11/18/24 11/18/24 promethazine 25 mg tablet 25 mg PO BID PRN nausea and 11/18/24 11/18/24 vomiting sertraline 50 mg tablet 50 mg PO DAILY 11/18/24 11/18/24 Previous Rx's ?Medication ?Instructions ?Recorded amgzeevikwteihc-iitpvfozittnqks-AY 10 ml PO Q6H PRN cold symptoms 11/18/24 2 mg-30 mg-10 mg/5 mL oral syrup #200 mL (Bromfed DM) ondansetron 4 mg disintegrating 4 mg PO Q6H PRN nausea and 11/18/24 tablet vomiting #12 tabs cephalexin 500 mg capsule 500 mg PO TID 7 days #21 caps 01/18/25 Allergies Allergy/AdvReac Type Severity Reaction Status Date / Time metoclopramide (From Reglan) Allergy Intermediate shaking Verified 01/18/25 15:40 amitriptyline Allergy dizzy Verified 01/18/25 15:40 latex Allergy hives Verified 01/18/25 15:40 sulfamethoxazole (From Allergy Hives Verified 01/18/25 15:40 Bactrim) tramadol (From Ultram) Allergy seizures Verified 01/18/25 15:40 trimethoprim (From Bactrim) Allergy Hives Verified 01/18/25 15:40 Opioid HPI Opioid Management Most Recent Opioid Data: Last Pain Scale 5 04/03/24 11:16 04/03/24 Review of Systems ROS Narrative A ten point review of systems is negative except as noted above. PFSH PFSH Social History Smoking status: Current every day smoker Little interest or pleasure in doing things: not at all Feeling down, depressed, or hopeless: not at all Exam Narrative Exam Narrative: Nurses note and vital signs reviewed and patient is not hypoxic. General: The patient appears well and in no apparent distress. Patient is resting comfortably on cart. Skin: Warm, dry, no pallor noted. There is no rash noted. Head: Normocephalic, atraumatic Eye: Normal conjunctiva, no drainage Ears, Nose, Mouth, and Throat: oral mucosa is moist. Nares patent. Cardiovascular: Regular Rate and Rhythm Respiratory: Patient is in no distress, no accessory muscle use, lungs are clear to auscultation, no wheezing, rales or rhonchi Back: non-tender, no CVA tenderness bilaterally to percussion. GI: Soft and minimal tenderness, only in the suprapubic area Musculoskeletal: The patient has no evidence of calf tenderness, no pitting edema, symmetrical pulses noted bilaterally Neurological: A&O, normal speech Psychiatric: Cooperative Constitutional Vital Signs, click to edit/add: Last Vital Signs Temp 98.1 F 01/18/25 15:40 Pulse 98 H 01/18/25 15:40 Resp 20 01/18/25 15:40 BP 138/89 01/18/25 15:40 Pulse Ox 98 01/18/25 15:40 Course Vital Signs Vital signs: Vital Signs Temperature 98.1 F 01/18/25 15:40 Pulse Rate 98 H 01/18/25 15:40 Respiratory Rate 20 01/18/25 15:40 Blood Pressure 138/89 01/18/25 15:40 Pulse Oximetry 98 01/18/25 15:40 Temperature 98.1 F 01/18/25 15:40 Pulse Rate 98 H 01/18/25 15:40 Respiratory Rate 20 01/18/25 15:40 Blood Pressure 138/89 01/18/25 15:40 Pulse Oximetry 98 01/18/25 15:40 Medical Decision Making MDM Narrative Medical decision making narrative: Microscopic hematuria is identified and urine culture is ordered. She was pres cribed Keflex and will follow-up with her doctor for recheck of her urine to ensure that the hematuria clears. She does not have typical symptoms of kidney stone and I have very low suspicion for a kidney stone in this patient. Treatment diagnosis and follow-up were discussed with the patient. Differential Diagnosis Differential Diagnosis: UTI, cystitis, hematuria Lab Data Lab results reviewed: Yes I reviewed the patient's lab results Labs: Lab Results 01/18/25 Range/Units 15:45 Urine Color Yellow (YELLOW) Urine Clarity Sl cloudy (CLEAR) Urine pH 6.0 (5.0-9.0) Ur Specific [place] 1.025 (1.005-1.025) Urine Protein Negative (NEG/TRACE) mg/dL Urine Glucose (UA) Negative (NEGATIVE) mg/dL Urine Ketones Trace A (NEGATIVE) mg/dL Urine Occult Blood Moderate A (NEGATIVE) Urine Nitrite Negative (NEGATIVE) Urine Bilirubin Negative (NEGATIVE) Urine Urobilinogen 0.2 (0.2-1.0) EU/dL Ur Leukocyte Esterase Negative (NEGATIVE) Urine RBC 5-10 A (0-2) #/HPF Urine WBC 0-2 A (NONE SEEN) #/HPF Ur Squamous Epith Cells Many A (NONE/RARE) #/LPF Urine Crystals None seen (None Seen) #/HPF Urine Bacteria Small A (NONE SEEN) #/HPF Urine Casts None seen (NONE SEEN) #/LPF Urine Mucus Small A (NONE SEEN) Urine Yeast Seen A (NONE SEEN) Ur Culture Indicated? Yes-[facility] [place] Discharge Plan Discharge Chief Complaint: Urogenital-Female Clinical Impression: Microscopic hematuria Patient Disposition: Home, Self-Care Time of Disposition Decision: 16:10 Condition: Good Mode of Transportation: Private Vehicle Prescriptions / Home Meds: New cephalexin 500 mg capsule 500 mg PO TID 7 Days Qty: 21 0RF No Action Trulicity 3 mg/0.5 mL pen injector 3 mg SUBCUT .weekly meloxicam 15 mg tablet 15 mg PO DAILY Spectravite Women 18-400 mg-mcg tablet 1 tab PO Q24H sertraline 100 mg tablet 100 mg PO Q24H simvastatin 20 mg tablet 20 mg PO DAILY tizanidine 4 mg tablet 4 mg PO Q8H PRN (Reason: muscle spasticity) Vraylar 1.5 mg capsule 1.5 mg PO DAILY divalproex 250 mg tablet,delayed release (DR/EC) 250 mg PO DAILY divalproex 500 mg tablet extended release 24 hr 500 mg PO DAILY doxazosin 2 mg tablet 2 mg PO DAILY ergocalciferol (vitamin D2) 1,250 mcg (50,000 unit) capsule 1,250 mcg PO DAILY ferrous sulfate [FeroSul] 325 mg (65 mg iron) tablet 325 mg PO DAILY gabapentin 800 mg tablet 800 mg PO DAILY metformin 500 mg tablet extended release 24 hr 500 mg PO DAILY diazepam 10 mg tablet 10 mg PO QPM melatonin 10 mg capsule 10 mg PO QPM promethazine 25 mg tablet 25 mg PO BID PRN (Reason: nausea and vomiting) sertraline 50 mg tablet 50 mg PO DAILY bebiofuthrgnnju-wroqsfdnw-LN [Bromfed DM] 2-30-10 mg/5 mL syrup 10 ml PO Q6H PRN (Reason: cold symptoms) Qty: 200 0RF ondansetron 4 mg tablet,disintegrating 4 mg PO Q6H PRN (Reason: nausea and vomiting) Qty: 12 0RF Print Language: German Instructions: Urinary Tract Infection in Women (ED), Hematuria (ED) Referrals: [facility] [Primary Care Provider] - 1 week
[2025-01-18 15:52] LABS: Bilirubin Urine NEGATIVE (NEGATIVE); Blood Urine MODERATE (NEGATIVE); Clarity Urine SL CLOUDY (CLEAR); Color Urine YELLOW (YELLOW); Glucose Urine UA NEGATIVE (NEGATIVE); Ketones Urine TRACE mg/dL (NEGATIVE); Leukocyte Esterase Urine NEGATIVE (NEGATIVE); Nitrite Urine NEGATIVE (NEGATIVE); Protein Urine NEGATIVE (NEG/TRACE); Specific Gravity Urine 1.025 (1.005-1.025); Urobilinogen Urine 0.2 EU/dL (0.2-1.0)
[2025-01-18 16:03] LABS: Bacteria Urine SMALL #/HPF (NONE SEEN); Mucus Urine SMALL (NONE SEEN); WBC Urine 0-2 #/HPF (NONE SEEN)
[2025-01-18 16:04] LABS: Cast Seen? NONE SEEN #/LPF (NONE SEEN); Crystals Seen? None Seen #/HPF (None Seen); Squamous Epithelial Cell Urine MANY #/LPF (NONE/RARE); Urine Culture Indicated YES-FRMC
[2025-01-18] MEDS: KETOROLAC TROMETHAMINE 60 MG/2 ML VIAL IM (16:21)
== END 2025-01-18 16:25 | disposition home or self-care (01) ==
PROVIDERS: Emergency Provider Emergency Medicine
DX: R31.29 Other microscopic hematuria (principal); R39.89 Other symptoms and signs involving the genitourinary system; R35.0 Frequency of micturition
CPT/HCPCS: 81001; 87086; 96372; 99285; J1885

== ENCOUNTER 2025-02-12 02:33 | Emergency (ER) | payer OTHER, SELFPAY ==
[2025-02-12 02:37] VITALS: BP 120/86; PULSE 79; TEMP 36.5; O2SAT 97; BMI 24.5
--- OUTSIDE RECORDS SUMMARY | 2025-02-12 02:40 | XMS_ITS | CCD ---
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 passenger] Fluid and electrolyte disorders (20 sources) Metabolic acidosis; Translations: [Metabolic acidosis] 10-08-2023 Episodic Genitourinary symptoms and ill-defined conditions (6 sources) Female stress incontinence 10-27-2019 Chronic Genitourinary symptoms and ill-defined conditions (20 sources) Sensation as if bladder still full; Translations: [Feeling of incomplete bladder emptying] Onset: 07-31-2022 Episodic Headache; including migraine (6 sources) Headache 10-27-2019 Episodic Heart valve disorders (7 sources) Heart murmur; Translations: [Cardiac murmur, unspecified] Onset: 11-16-2022 10-27-2019 Episodic Intestinal infection (19 sources) Clostridium difficile diarrhea; Translations: [Enterocolitis due to Clostridium difficile, not specified as recurrent] 10-09-2023 Episodic Malaise and fatigue (1 source) Malaise; Translations: [Other malaise] Onset: 07-09-2024 Episodic Miscellaneous mental health disorders (20 sources) Dissociative convulsions; 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 Mood disorders (19 sources) Depressive disorder; Translations: [Depression] 10-08-2023 Chronic Noninfectious gastroenteritis (20 sources) Enteritis of small intestine; Translations: [Noninfective gastroenteritis and colitis, unspecified] 10-08-2023 Episodic Nonspecific chest pain (20 sources) Atypical chest pain; Translations: [Other chest pain] 04-17-2019 Episodic Nutritional deficiencies (1 source) Vitamin D deficiency, unspecified; Translations: [Vitamin D deficiency, unspecified] Onset: 05-16-2024 Chronic Nutritional deficiencies (20 sources) Iron deficiency; Translations: [Iron deficiency] 05-27-2022 Episodic Other acquired deformities (1 source) Scoliosis, unspecified; Translations: [Scoliosis, unspecified] Onset: 06-08-2024 Chronic Other aftercare (1 source) Other termite renewal inspector (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) drug therapy; Translations: [OTH CUSTODIAL 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 THERAPY] Onset: 02-02-2023 Episodic Other aftercare (1 source) care home (current) use of oral hypoglycemic drugs; Translations: [CUSTODIAL USE ORAL HYPOGLYCEMIC DX] Onset: 02-02-2023 Episodic Other connective tissue disease (20 sources) Fibromyalgia; Translations: [Fibromyalgia] 04-17-2019 Episodic Other connective tissue disease (20 sources) Muscle pain; Translations: [Myalgia, unspecified site] 04-17-2019 Episodic Other diseases of bladder and urethra (1 source) Male urethral stricture; Translations: [Unspecified urethral stricture, male, unspecified site] Onset: 11-02-2022 Episodic Other diseases of bladder and urethra (3 sources) Urethral stricture 11-02-2022 Episodic Other ear and sense organ disorders (16 sources) Otalgia; Translations: [Otalgia, unspecified ear] 11-26-2017 Episodic Other ear and sense organ disorders (20 sources) Pain of ear structure; Translations: [Otalgia, unspecified ear] 11-26-2017 Episodic Other female genital disorders (17 sources) Vaginal bleeding; Translations: [Abnormal uterine and vaginal bleeding, unspecified] 10-24-2023 Chronic Other gastrointestinal disorders (19 sources) Irritable bowel syndrome; Translations: [Irritable bowel syndrome without diarrhea] 10-08-2023 Chronic Other gastrointestinal disorders (2 sources) Irritable bowel syndrome without diarrhea; Translations: [Irritable bowel syndrome] 10-09-2023 Chronic Other hematologic conditions (19 sources) H/O: blood disorder; Translations: [Personal history of diseases of the blood and blood-forming organs and certain disorders involving the immune mechanism] 10-08-2023 Episodic Other hematologic conditions (2 sources) Personal history of diseases of the blood and blood-forming organs and certain disorders involving the immune mechanism; Translations: [Personal history of diseases of blood and blood-forming organs] 10-09-2023 Episodic Other injuries and conditions due [...] Onset: 11-16-2022 Chronic Other nervous system disorders (19 sources) Acute postoperative pain; Translations: [Other acute [...] [Tobacco use] 12-20-2017 Episodic Residual codes; unclassified (2 sources) Acquired absence of both cervix and uterus; Translations: [Acquired absence of both cervix and uterus] 10-09-2023 Episodic Residual codes; unclassified (17 sources) Left against medical advice; Translations: [Procedure [...] history of other mental and behavioral disorders] 10-08-2023 Episodic Sexually transmitted infections (not HIV or hepatitis) (6 sources) Sexually transmitted infectious disease 10-27-2019 Episodic Spondylosis; intervertebral disc disorders; other back problems (20 sources) Intervertebral disc disorder of lumbar region with myelopathy; Translations: [Intervertebral disc disorders with myelopathy, lumbar region] Onset: 01-28-2022 Resolved: 02-19-2022 Chronic Sprains and strains (20 sources) Sprain of ankle; Translations: [Sprain of unspecified ligament of unspecified ankle, initial encounter] 04-29-2022 Episodic Substance-related disorders (12 sources) Smoker 10-27-2019 Chronic Comment on above: Added secondary to d ocumentation in Social History. Unclassified (6 sources) Finding of sensation of bladder 07-31-2022 Unclassified (1 source) PT NONCOMPLIANCE DIET UNS REASON; Translations: [PT NONCOMPLIANCE DIET UNS REASON] Onset: 02-02-2023 Viral infection (1 source) Viral disease; Translations: [Viral infection, unspecified] Onset: 07-09-2024 Episodic Past or Other Problems Problem Classification Problem Date Documented Da te Episodic/Chronic Epilepsy; convulsions (3 sources) Unspecified convulsions; Translations: [UNSPECIFIED CONVULSIONS] Onset: 11-12-2022 Episodic Nonmalignant breast conditions (3 sources) Mastodynia; Translations: [Solitary cyst of right breast] Onset: 02-09-2024 Episodic Other connective tissue disease (3 sources) Fibromyalgia; Translations: [FIBROMYALGIA] Onset: 01-14-2022 Resolved: 01-28-2022 Episodic Other gastrointestinal disorders (1 source) Diarrhea, unspecified; Translations: [Diarrhea, unspecified] Onset: 03-16-2024 Episodic Other non-traumatic joint disorders (1 source) Pain in unspecified hip Onset: 02-19-2022 Resolved: 02-19-2022 Episodic Other screening for suspected conditions (not mental disorders or infectious disease) (3 sources) Encounter for screening for malignant neoplasm of colon; Translations: [Other abnormal and inconclusive findings on diagnostic imaging of breast] Onset: 02-04-2024 Episodic Residual codes; unclassified (1 source) Pain, unspecified; Translations: [Pain, unspecified] Onset: 07-04-2024 Episodic Spondylosis; intervertebral disc disorders; other back problems (20 sources) Cervicalgia; Translations: [Radiculopathy, lumbar region] Onset: 01-14-2022 Resolved: 02-19-2022 Episodic Unclassified (1 source) Low back pain at multiple sites M54.50 Onset: 01-14-2022 Resolved: 01-14-2022 Results Test Name Value Interpretation Reference Range Facility ED Clinical Summaryon 2024 ED Clinical Summary ED Clinical Summary [place] [address] ED Clinical Summary Person Information Name: RACHEL MCGARRY [facility] Age: 45 Years : 1980 Sex: Female Language: Tajik PCP: AJIT PETTIT CNP Marital Status: Visit Id: Visit Reason: Dysuria; UTI Speciality: Acuity: 4 Enc Type: Emergency Med Service: Emergency Arrival: 01/24/2025 11:30:26 Discharge: 01/24/2025 12:25:28 LOS: 000 00:55 Checkin: 01/24/2025 11:30:26 Checkout: 01/24/2025 12:25:28 Dispo Type: Home (Routine DC) EVENTS: Event Name Event Status Request Date/Time Start Date/Time Complete Date/Time Arrive Complete 01/24/2025 11:30:26 01/24/2025 11:30:26 01/24/2025 11:30:26 Document Home Meds Request 01/24/2025 11:30:26 Triage Complete 01/24/2025 11:30:26 01/24/2025 11:37:14 01/24/2025 11:37:14 Bed Assign Complete 01/24/2025 11:33:23 01/24/2025 11:33:23 01/24/2025 11:33:23 Dr Exam Complete 01/24/2025 11:33:24 01/24/2025 11:40:46 01/24/2025 11:40:46 RN Exam Complete 01/24/2025 11:33:24 01/24/2025 11:46:06 01/24/2025 11:46:06 Registration Complete 01/24/2025 11:33:54 01/24/2025 11:33:54 01/24/2025 11:33:54 Reg Complete Request 01/24/2025 11:33:54 Reg Bed Request Complete 01/24/2025 11:33:54 01/24/2025 11:33:54 01/24/2025 11:33:54 Pending Labs Complete 01/24/2025 11:35:58 01/24/2025 11:52:53 Registration Request 01/24/2025 11:40:46 Dr Exam Complete 01/24/2025 11:42:21 01/24/2025 11:42:21 01/24/2025 11:42:21 Meds Admin Complete 01/24/2025 12:04:56 01/24/2025 12:23:56 Discharge Complete 01/24/2025 12:15:35 01/24/2025 12:25:32 01/24/2025 12:25:32 Transfer Complete 01/24/2025 12:25:32 01/24/2025 12:25:32 01/24/2025 12:25:32 ADDRESS: [address] [facility] [id number] PHYS DOC NOTES: MEDICAL INFORMATION: Prescriptions Given: New Medications [id number], [address], [place] [id number], [phone] ciprofloxacin (Cipro 500 mg Tab) 1 Tablets By Mouth every 12 hours for 3 Days. Refills: 0. fluconazole (Diflucan 150 mg Tab) 1 Tablets By Mouth every 7 days. take on 01/31/2025. Refills: 0. ondansetron (Zofran ODT 4 mg Tab-Dis) 1 Tablets By Mouth every 8 hours as needed Nausea/Vomiting. Refills: 0. phenazopyridine (Pyridium 100 mg Tab) 1 Tablets By Mouth 3 times a day for 7 Days. Refills: 0. Medications to Continue with No Changes Other [...] every 8 hours. PATIENT EDUCATION INFORMATION: Instructions: Urinary Tract Infection, Adult, [id number] Follow up: With: Address: When: AJIT PETTIT [address] [address] Business (1) In 3 days 01/27/2025 Comments: Call Dr for diagnosis based follow up DIAGNOSIS: UTI symptoms Normal [facility] ED Note-Physicianon 01-25-20 ED Note-Physician ED Note-Physician Basic Information Time Seen: Tanvir RIVAS Hussein J. 01/24/2025 11:40 Chief Complaint c/o worsening UTI symptoms, pressure, dysuria. currently on cephalexin for the past 5 days for known UTI. History of Present Illness A 45-year-old female reports for department with concerns of worsening UTI symptoms. States that she was diagnosed with UTI for last 5 or 6 days and has been taking Keflex, but feels like she is having worsening of dysuria as well as lower abdominal discomfort with this. Denies any back pain. Denies any fevers or chills. Reports mild nausea without vomiting. Reports allergic to Bactrim for antibiotics. Review of Systems No other aggravating or relieving factors no other associated symptoms no other prior treatments or complaints. Family: Reviewed and noncontributory Social: lives at home Review of systems negative unless otherwise specified in the HPI. Physical Exam Vitals & Measurements T: 36.5 ???C(Oral) HR: 93(Peripheral) RR: 18 BP: 140/94 SpO2: 99% HT: 165 cm WT: 70.1 kg BMI: 25.75 General: The patient appears well and in no apparent distress. Patient is resting comfortably in chair. afebrile. Skin: Warm, dry, no pallor noted. Head: Normocephalic, atraumatic Neck: No JVD Eye: PERRLA, EOMI ENT: Moist mucus membranes Cardiovascular: Regular rate. normal peripheral perfusion. radial pulses +2 bilaterally Respiratory: No respiratory distress. no accessory muscle use. no obvious audible wheezing Chest Wall: no deformity Musculoskeletal: normal ROM, no deformity, no swelling GI: No obvious distention. Abdomen soft. There is mild suprapubic tenderness on exam, without rebound tenderness or guarding noted. No CVA tenderness bilaterally Neurological: A&O. moves all extremities equal strength and symmetry Psychiatric: Cooperative and appropriate Medical Decision Making 45-year-old female reports emergency department with concerns of worsening urinary symptoms. Reports been on Keflex for last 5 to 6 days. States that she is having worsening symptoms now. Exam patient here is benign. Afebrile. No acute distress. Abdomen is soft. No concerns of pyelonephritis. She has mild suprapubic tenderness, otherwise benign exam. Due to concerns we did repeat a urine. Urine was relatively benign, but there was a yeast. Patient was adamant that this was UTI, so I did start her on a short course of Cipro for antibiotic coverage. I also did prescribe Pyridium for symptoms. Discussed could be yeast that is causing her symptoms as well, so given a dose of fluconazole here. She will take another dose of fluconazole in 1 week. Discussed return precautions. Follow-up with your primary care provider in 3 to 5 days. If symptoms worsen, do not improve, or new symptoms arise please report back to emergency department for further evaluation. The patient was understanding and agreeable to plan moving forward. Assessment/Plan UTI symptoms (R39.9: Unspecified symptoms and signs involving the genitourinary system) Orders: ciprofloxacin, 500 mg = 1 tab(s), Oral, q12hr, X 3 day(s), # 6 tab(s), Refills(s) 0, Pharmacy: [id number], 165, cm, 01/24/25 11:37:00 EDT, Height/Length Dosing, 70.1, kg, 01/24/25 11:37:00 EDT, Weight Dosing fluconazole, 300 mg = 2 tab(s), Tab, Oral, Once, Stop date 01/24/25 12:04:00 EDT, STAT, Start date 01/24/25 12:04:00 EDT, 01/24/25 12:04:00 EDT fluconazole, 150 mg = 1 tab(s), Oral, q7day, take on 01/31/2025, # 2 tab(s), Refills(s) 0, Pharmacy: [facility][id number], 165, cm, 01/24/25 11:37:00 EDT, Height/Length Dosing, 70.1, kg, 01/24/25 11:37:00 EDT, Weight Dosing ondansetron, 4 mg = 1 tab(s), Tab-Dis, Oral, Once, Stop date 01/24/25 12:04:00 EDT, STAT, Start date 01/24/25 12:04:00 EDT, 01/24/25 12:04:00 EDT ondansetron, 4 mg = 1 tab(s), Oral, q8hr, PRN Nausea/Vomiting, # 12 tab(s), Refills(s) 0, Pharmacy: [facility] #[id number], 165, cm, 01/24/25 11:37:00 EDT, Height/Length Dosing, 70.1, kg, 01/24/25 11:37:00 EDT, Weight Dosing phenazopyridine, 100 mg = 1 tab(s), Oral, TID, X 7 day(s), # 21 tab(s), Refills(s) 0, Pharmacy: [facility]/pharmacy #[id number], 165, cm, 01/24/25 11:37:00 EDT, Height/Length Dosing, 70.1, kg, 01/24/25 11:37:00 EDT, Weight Dosing phenazopyridine, 100 mg = 1 tab(s), Tab, Oral, Once, Stop date 01/24/25 12:04:00 EDT, STAT, Start date 01/24/25 12:04:00 EDT, 01/24/25 12:04:00 EDT Medications Administered Given fluconazole 150 mg Tab, 300 mg, Oral Pyridium 100 mg Tab, 100 mg, Oral Zofran ODT 4 mg Tab-Dis, 4 mg, Oral Disposition Plan Patient Discharge Condition stable Discharge Disposition to home Discharge Prescription List Prescriptions Cipro 500 mg Tab, 500 mg= 1 tab(s), Oral, q12hr Diflucan 150 mg Tab, 150 mg= 1 tab(s), Oral, q7day Pyridium 100 mg Tab, 100 mg= 1 tab(s), Oral, TID Zofran ODT 4 mg Tab-Dis, 4 mg= 1 tab(s), Oral, q8hr, PRN Follow-up With When Contact Information AJIT PETTIT In 3 days 01/27/2025 EDT [address] [place] [address]- (more content not included)... Normal [facility] Comment on above: Result Comment: Elec tronically Signed By: Tanvir RIVAS, Hussein Jose\.br\Date and Time Signed: 01/24/25 14:33 EDT\.br\Electronically Co-Signed By: Rosanna Sterling, Laura Knight\.br\Date and Time Co-Signed: 01/24/25 14:50 EDT ED Patient Summaryon 025 ED Patient Summary ED Patient Summary [address] [address] Patient Discharge Instructions Person Information Name: RACHEL MCGARRY Age: 45 Years Arrival Date: 01/24/2025 11:30:26 Discharge Diagnosis: UTI symptoms Primary Care Physician: AJIT PETTIT CNP Provider Information Primary Provider: Laura Marte M.D. Advanced Master Pilot:Hussein Ramey PA-C The exam and treatment you received in the Emergency Department were for an urgent problem and are not intended as complete care. It is important that you follow up with a doctor, nurse practitioner, or physician???s export sales assistant for ongoing care. If your symptoms [...] With: Address: When: AJIT PETTIT [address] [place] [address] [facility] (1) In 3 days 01/27/2025 Comments: Call Dr for diagnosis based follow up In the event that this physician does not participate in your insurance network, please consult with your insurance company to find a nearby participating provider. Patient Education Materials: Urinary Tract Infection, Adult, Sgae-fb-Grpn A MESSAGE TO ALL PATIENTS REGARDING OPIOIDS PRESCRIPTION OPIOIDS: WHAT YOU NEED TO KNOW Prescription opioids can be used to help relieve scolyhha-mr-zjcncm pain and are often prescribed following a [...] as well, even when taken as directed: ??? Tolerance???meaning you might need to take more of the medication for the same pain relief ??? Physical dependence???meaning you have symptoms of withdrawal when a medication is stopped ??? Increased sensitivity to pain ??? Constipation ??? Nausea, vomiting, and dry mouth ??? Sleepiness and dizziness ??? Confusion ??? Depression ??? Low levels of testosterone that can result in lower sex drive, energy, and strength ??? Itching and sweating RISKS ARE GREATER WITH: ??? History of drug misuse, substance use disorder, or overdose ??? Mental health conditions (such as depression or anxiety) ??? Sleep apnea ??? Older age (65 years and older) ??? Avoid alcohol while taking prescription opioids. Also, unless specifically advised by your health care provider, medications to avoid include: ??? Benzodiazepines (such as Xanax or Valium) ??? Muscle relaxants (such as Soma or Flexeril) ??? Hypnotics (such as Ambien or Lunesta) ??? Other prescription opioids KNOW YOUR OPTIONS Talk to your health care provider about ways to manage your pain that don???t involve prescription opioids. Some of these options may actually work better and have fewer risks and side effects. Options may include: ??? Pain relievers such as acetaminophen, ibuprofen, and naproxen ??? Some medication that are also used for depression or seizures ??? Physical therapy and exercise ??? Cognitive behavioral therapy, a psychological, goal-directed approach, in which patients learn how to modify physical, behavioral, and emotional triggers of pain and stress. IF YOU ARE PRESCRIBED OPIOIDS FOR PAIN: ??? Never take opioids in greater amounts or more often than prescribed. ??? Follow up with your primary health care provider. o Work together to create a plan on how to manage your pain. o Talk about ways to help manage your pain that don???t involve prescription opioids. o Talk about any and all concerns and side effects. ??? Help prevent misuse and abuse o Never sell or share prescription opioids. o Never use another person???s prescription opioids. ??? Store prescription opioids in a secure place and out of reach of others (this may include visitors, children, friends, and family). ??? Safely dispose of unused prescription opioids: Find your community drug take-back program or your pharmacy mail-back program, or flush them down the toilet, following guidance from the Food and Drug Administration (www.fda.gov/Drugs/Resource sForYou). ??? Visit www.cdc.gov/drugoverdose to learn about the risks of opioids abuse and overdose. ??? If you believe you may be st (more content not included)... Normal [facility] UA with Cult [employer] 01-25-20 25 Bacteria Auto Ql (U) Trace Normal Trace Fish er [facility] Comment on above: Performed By: #### 4 [id number] #### [facility] [address] [place] [address] Bilirubin Ql (U) Negative Normal Negative [facility] Comment on above: Performed By: #### 4 [id number] #### [facility] [address] [place] [address] Clarity (U) Turbid Abnormal Clear [facility] Comment on above: Performed By: #### 4 [id number] #### [facility] [address] [place] [address] Color (U) Yellow Normal Yellow [facility] Comment on above: Result Comment: Micr oscopic readings are only performed on those samples that meet specific criteria set forth by [facility]. Performed By: #### 4 [id number] #### [facility] [address] [place] [address] Epithelial cells.squamous Auto (Urine sed) [#/Area] >10 Invalid Interpretation Code [facility] Comment on above: Performed By: #### 4 [id number] #### [facility] [address] [place] [address] Glucose Ql (U) 1+ mg/dL Abnormal Negative [facility] Comment on above: Performed By: #### 4 [id number] #### [facility] [address] [place] [address] Hemoglobin Auto test strip (U) [Mass/Vol] Negative Normal Negative [facility] Comment on above: Performed By: #### 4 [id number] #### [facility] [address] [place] [address] Ketones Auto test strip Ql (U) 1+ mg/dL Abnormal Negative [facility] Comment on above: Performed By: #### 4 [id number] #### [facility] [address] [place] [address] Leukocyte esterase Auto test strip Ql (U) Negative Normal Negative [facility] Comment on above: Performed By: #### 4 [id number] #### [facility] [address] [place] [address] Mucus Auto Ql (U) Trace Normal Negative [facility] Comment on above: Performed By: #### 4 [id number] #### [facility] [address] [place] [address] Nitrite Auto test strip Ql (U) Negative Normal Negative [facility] Comment on above: Performed By: #### 4 [id number] #### [facility] [address] [place] [address] pH (U) 6.0 [pH] Invalid Interpretation Code 5.0-9.0 [facility] Comment on above: Performed By: #### 4 [id number] #### [facility] [address] [place] [address] Protein Ql (U) Negative Normal Negative [facility] Comment on above: Performed By: #### 4 [id number] #### [facility] [address] [place] [address] RBC Ql (U) 4-20 Abnormal 0-3 [facility] Comment on above: Performed By: #### 4 [id number] #### [facility] [address] [place] [address] Specific gravity (U) [Rel density] 1.015 Invalid Interpretation Code 1.005-1.03 0 [facility] Comment on above: Performed By: #### 4 [id number] #### [facility] [address] [place] [address] Urobilinogen (U) [Mass/Vol] Negative Normal Negative [facility] Comment on above: Performed By: #### 4 [id number] #### [facility] [address] [place] [address] WBC Auto (Urine sed) [#/Area] 0-5 Normal 0-5 [facility] Comment on above: Performed By: #### 4 [id number] #### [facility] [address] [place] [address] Yeast.budding Computer assisted Ql (U) 1+ CD:[id number] Abnormal [facility] Comment on above: Performed By: #### 4 [id number] #### [facility] [address] [place] [address] Type of Urine collection method Clean Catch Normal [facility] Comment on above: Performed By: #### 4 [id number] #### [facility] [address] [place] [address] URINALYSISOrdered By: SYSTEM SYSTEM on 01-24-2025 Bacteria Auto Ql (U) Trace /HPF Normal Trace/HPF FT UA Auto SS Bilirubin Ql (U) Negative Normal Negativemg /dL FT UA Auto SS Clarity (U) Turbid *ABN* (01/24/25 11:39 AM) Invalid Interpretation Code Clear FT UA Auto SS Color (U) Yellow 1 (01/24/25 11:39 AM) Normal Yellow FT UA Auto SS Comment on above: Interpretive Data: M icroscopic readings are only performed on those samples that meet specific criteria set forth by [facility]. Epithelial cells.squamous Auto (Urine sed) [#/Area] >10 graded/HPF Invalid Interpretation Code [facility] UA Auto SS Glucose Ql (U) 1+ mg/dL Invalid Interpretation Code Negativemg /dL [facility] Auto SS Hemoglobin Auto test strip (U) [Mass/Vol] Negative Normal Negativemg /dL [facility] UA Auto SS Ketones Auto test strip Ql (U) 1+ mg/dL Invalid Interpretation Code Negativemg /dL [facility] UA Auto SS Leukocyte esterase Auto test strip Ql (U) Negative Normal NegativeLe u/uL [facility] UA Auto SS Mucus Auto Ql (U) Trace graded/LPF Normal Negati vegr aded/LPF [facility] UA Auto SS Nitrite Auto test strip Ql (U) Negative Normal Negativemg /dL [facility] UA Auto SS pH (U) 6.0 *NA* (01/24/25 11:39 AM) Invalid Interpretation Code 5.0 - 9.0 [facility] UA Auto SS Protein Ql (U) Negative Normal Negativemg /dL [facility] UA Auto SS RBC Ql (U) 4-20 graded/HPF Invalid Interpretation Code 0-3graded/ HPF [facility] UA Auto SS Specific gravity (U) [Rel density] 1.015 *NA* (01/24/25 11:39 AM) Invalid Interpretation Code 1.005 - 1.030 [facility] UA Auto SS Urobilinogen (U) [Mass/Vol] Negative Normal Negativemg /dL [facility] UA Auto SS WBC Auto (Urine sed) [#/Area] 0-5 graded/HPF Normal 0-5graded/ HPF [facility] UA Auto SS Yeast.budding Computer assisted Ql (U) 1+ graded/HPF Invalid Interpretation Code [facility] UA Auto SS URINALYSISOrdered By: Mati Reilly on 01-24-2025 UA Spec Desc Clean Catch (01/24/25 11:39 AM) Normal [facility] UA Auto SS Urine Cultureon 01-18-2025 Bacteria identified Cx Nom (U) 50,000 colonies/ml mixed bacterial skin contaminants 2 Days PERFORMED BY: [place] [address] PATHOLOGIST HORIZONTAL DRILL OPERATOR MAURO ELLSWORTH M.D. Normal [facility] Comment on above: Performed By: #### C UU #### [address] US breast LT limitedon 09-06 breast LT limited [facility] Main [place] [address] [place] [address] Mammography Report Signed Patient: Rachel Mcgarry MR#: [id number] 1 : 1980 Acct:[id number] Age/Sex: 44 / F ADM Date: 09/06/24 Loc: [place] Room: Type: [facility] CLI Attending Dr: Ajit DEJESUS Copies to: OLEG Sharp Ordering Provider: OLEG Sharp Date of Service: 09/06/24 MM/MM diagnostic mammo LT w/CAD: Breast pain, left ([id number]) US/US breast LT limited: Breast pain, left [...] Eda Yañez M.D.09/06/2024 8:56 AM Dictation Location: [facility] Transcribed By: [facility] 09/06/24855 Dictated By: Eda Yañez MD 09/06/24818 Signed By: 09/06/24855 Normal [facility] Glucose Poct Glucometerson 1 11-06-2023 Commemt1 Glu2: Cleaned Meter Normal [facility] Comment on above: Result Comment: PERF ORMED BY: [place] [id number] PATHOLOGIST HORIZONTAL DRILL OPERATOR MAURO ELLSWORTH M.D. Performed By: #### G LULS #### Point of Care testing , Glucose [Mass/Vol] 132 mg/dL Normal [facility] Comment on above: Result Comment: Herod Glucose Reference Range is dependent on time and content of last meal. Glucose of more than 200 mg/dL in a nonstressed, ambulatory subject supports the diagnosis of Diabetes Mellitus. Performed By: #### G LULS #### Point of Care testing , Pathology Request for Lab Co rpon 09-05-2024 Pathology Request for Lab Silvia Normal [facility] Comment on above: Order Comment: PATH SENDOUT-GI SPECIMEN Result Comment: See report. Scanned copy available in EMR. PERFORMED BY: [address] [address] PATHOLOGIST HORIZONTAL DRILL OPERATOR MAURO ELLSWORTH M.D. Performed By: #### C BC, CMP, LIPID #### [facility] [address] [place], [place] [id number] [facility] US breast RT limitedon 07-24 US breast RT limited [facility] Main [place] [address] [place], [place] [id number] Ultrasound Report Signed Patient: Rachel Mcgarry MR#: [id number] 1 : 1980 Acct:[id number] Age/Sex: 44 / F ADM Date: 07/24/24 Loc: [facility] Room: Type: [facility] Attending Dr: Ajit CALLAHANC Ordering [...] Praveen Welch M.D.07/25/2024 10:48 AM Dictation Location: [facility] Tech: Dominique Singh Transcribed By: ROSA MARIA 07/25/24 1048 Dictated By: Praveen Welch DO 07/24/24 1642 Signed By: 07/25/24 1048 Normal [facility] B hCG Qualon 07-09-2024 Beta HCG ( test) Ql Negative Normal [facility] Comment on above: Performed By: #### 2 [id number] #### [facility] [address] [place] [address] BMPon 07-09-2024 Anion gap [Moles/Vol] 12 mmol/L Normal 6-16 [facility] Comment on above: Performed By: #### 2 [id number] #### [facility] [address] [place] [address] Calcium [Mass/Vol] 8.9 mg/dL Normal 8.9-11.1 [facility] Comment on above: Performed By: #### 2 [id number] #### [facility] [address] [place] [address] Chloride [Moles/Vol] 99 mmol/L Low 101-111 Fish er [facility] Comment on above: Performed By: #### 2 [id number] #### [facility] [address] [place] [address] CO2 [Moles/Vol] 24 mmol/L Normal 21-31 [facility] Comment on above: Performed By: #### 2 [id number] #### [facility] [address] [place] [address] Creatinine [Mass/Vol] 0.5 mg/dL Normal 0.5-1.3 [facility] Comment on above: Performed By: #### 2 [id number] #### [facility] [address] [place] [address] Glucose [Mass/Vol] 149 mg/dL Normal 55-199 [facility] Comment on above: Performed By: #### 2 [id number] #### [facility] [address] [place] [address] Potassium [Moles/Vol] 4.1 mmol/L Normal 3.5-5.3 [facility] Comment on above: Performed By: #### 2 [id number] #### [facility] [address] [place] [address] Sodium [Moles/Vol] 131 mmol/L Low 135-145 [facility] Comment on above: Performed By: #### 2 [id number] #### [facility] [address] [place] [address] Urea nitrogen [Mass/Vol] 9 mg/dL Normal 5-21 [facility] Comment on above: Performed By: #### 2 [id number] #### [facility] [address] [place] [address] Urea nitrogen/Creatinine [Mass ratio] 18 No Units Normal 10-20 [facility] Comment on above: Performed By: #### 2 [id number] #### [facility] [address] [place] [address] CBC w/ Auto Diffon 4 Basophils/100 WBC (Bld) 1.0 % Normal 0.0-2.0 F [facility] Comment on above: Performed By: #### 2 [id number] #### [facility] [address] [place] [address] Basophils/Leukocytes Auto (Bld) [Pure # fraction] 0.2 E9/L Normal 0.0-0.2 [facility] Comment on above: Performed By: #### 2 [id number] #### [facility] [address] [place] [address] Eosinophils (Bld) [#/Vol] 0.1 E9/L Normal 0.0-0.5 [facility] Comment on above: Performed By: #### 2 [id number] #### [facility] [address] [place] [address] Eosinophils/100 WBC (Bld) 0.8 % Normal 0.0-8.0 [facility] Comment on above: Performed By: #### 2 [id number] #### [facility] [address] [place] [address] Erythrocyte distribution width (RBC) [Ratio] 13.2 % Normal 10.9-14.2 [facility] Comment on above: Performed By: #### 2 [id number] #### [facility] [address] [place] [address] Hematocrit (Bld) [Volume fraction] 38.9 % Normal 34.0-46.0 [facility] Comment on above: Performed By: #### 2 589116 #### [facility] [address] [place] [address] Hemoglobin (Bld) [Mass/Vol] 13.4 g/dL Normal 12.0-16.0 [facility] Comment on above: Performed By: #### 2 167801 #### [facility] [address] [place] [address] Lymphocytes (Bld) [#/Vol] 3.7 E9/L Normal 1.0-4.0 [facility] Comment on above: Performed By: #### 2 992895 #### [facility] [address] [place] [address] Lymphocytes/100 WBC (Bld) 24.7 % Normal 14.0-50.0 [facility] Comment on above: Performed By: #### 2 [id number] #### [facility] [address] [place] [address] MCH (RBC) [Entitic mass] 30.4 pg Normal 27.0-34.0 [facility] Comment on above: Performed By: #### 2 535254 #### [facility] [address] [place] [address] MCHC (RBC) [Mass/Vol] 34.5 g/dL Normal 31.4-36.0 [facility] Comment on above: Performed By: #### 2 [id number] #### [facility] [address] [place] [address] MCV (RBC) [Entitic vol] 88.1 fL Normal 80.0-100.0 F [facility] Comment on above: Performed By: #### 2 [id number] #### [facility] [address] [place] [address] Monocytes (Bld) [#/Vol] 0.7 E9/L Normal 0.2-1.0 F [facility] Comment on above: Performed By: #### 2 624262 #### [facility] [address] [place] [address] Neutrophils (Bld) [#/Vol] 10.3 E9/L High 2.0-7.5 [facility] Comment on above: Performed By: #### 2 [id number] #### [facility] [address] [place] [address] Neutrophils/100 WBC (Bld) 69.1 % Normal 36.0-75.0 [facility] Comment on above: Performed By: #### 2 158775 #### [facility] [address] [place] [address] Platelet mean volume (Bld) [Entitic vol] 8.3 fL Normal 6.4-10.8 [facility] Comment on above: Performed By: #### 2 023568 #### [facility] [address] [place] [address] Platelets (Bld) [#/Vol] 319.0 E9/L Normal 150. 0-500. 0 [facility] Comment on above: Performed By: #### 2 087004 #### [facility] [address] [place] [address] RBC (Bld) [#/Vol] 4.4 E12/L Normal 4.3-5.9 [facility] Comment on above: Performed By: #### 2 [id number] #### [facility] [address] [place] [address] WBC corrected for nucl RBC Auto (Bld) [#/Vol] 14.9 E9/L High 4.0-11.0 [facility] Comment on above: Result Comment: Kaela pheral smear review performed. Performed By: #### 2 [id number] #### [facility] [address] [place] [address] CHEMISTRYOrdered By: SYSTEM SYSTEM on 07-09-2024 Troponin [...] Sensitivity Troponin I Instructions For Use, Gustavo Greenwood, May 2018) Albumin [Mass/Vol] 4.0 g/dL Normal [...] Sensitivity Troponin I Instructions For Use, Gustavo Greenwood, May 2018) Urea nitrogen [Mass/Vol] 9 mg/dL Normal 5 - 21 mg/dL [facility] Urea nitrogen/Creatinine [Mass ratio] 18 mg/mg Normal 10 - 20 [facility] COAGULATIONOrdered By: Jazmyne Phillips on 07-09-2024 aPTT Coag (PPP) [Time] 28.9 s Normal 25.1 - 36.5 second(s) [facility] Auto Coag Comment on above: Interpretive Data: P garett 15 days - 4 weeks 1 - [...] the same coagulation reagent and instrumentation as [facility]. Currently there are no coagulation studies available worldwide for children to 14 days, and no normal ranges. Heparin therapeutic range (represented by Anti-Factor Xa activity of 0.2 - 0.4 U/mL) corresponds to PTT of 56.6 - 109.0 sec. INR Coag (PPP) [Relative time] 0.85 {INR} Invalid Interpretation Code [facility] Auto Coag Comment on above: Interpretive Data: I NR results are specifically intended to assess patients stabilized on long-term Anticoagulation therapy suggested INR s Less Intensive Anticoagulation 2.0 3.0 Conventional Range 3.0 4.5 PT Coag (PPP) [Time] 9.5 s Normal 9.4 - 1 2.5 second(s) [facility] Auto Coag Comment on above: Interpretive Data: [...] the same coagulation reagent and instrumentation as [facility]. Currently there are no coagulation studies available worldwide for children to 14 days, and no normal ranges. ED Clinical Summaryon 2023 ED Clinical Summary ED Clinical Summary [address] [address] ED Clinical Summary Person Information Name: RACHEL MCGARRY [place]/[facility] Age: 44 Years : 1980 Sex: Female Language: Tajik PCP: AJIT PETTIT CNP Marital Status: Phone: [phone] Visit Id: Visit Reason: Syncope/Near syncope; Body [...] 07/09/2024 15:24:59 07/09/2024 15:24:59 07/09/2024 15:24:59 ADDRESS: [address] [place] [phone] PHYS DOC NOTES: MEDICAL INFORMATION: Prescriptions Given: [...] up: With: Address: When: AJIT PETTIT [address] [place] [address] [facility] (1) In [...] worsening symptoms. DIAGNOSIS: Malaise; Viral syndrome Normal [facility] ED Clinical Summary ED Clinical Summary [address] [address] ED Clinical Summary Person Information Name: RACHEL MCGARRY [place] Age: 44 Years : 1980 Sex: Female Language: Tajik PCP: AJIT PETTIT CNP Marital Status: Phone: [phone] Visit Id: Visit Reason: Syncope/Near syncope; Body [...] 07/09/2024 13:32:08 Discharge Request 07/09/2024 14:17:25 ADDRESS: [address] [place] [phone] PHYS DOC NOTES: MEDICAL INFORMATION: Prescriptions Given: [...] Adult Follow up: With: Address: When: AJIT POLOHUMERAJorge [address] [place] [address] Business (1) In 3 days 07/12/2024 Comments: [...] worsening symptoms. DIAGNOSIS: Malaise; Viral syndrome Normal [facility] ED Note-Physicianon 07-09-20 ED Note-Physician ED [...] of abd and x-ray and went to [facility] History of Present Illness 44-year-old female to the emergency department with chief complaint of feeling unwell for the last week. She reports she has had malaise, fatigue, intermittently shaky, felt lightheaded earlier. She reports that she has been seen [facility] and some urgency department in [facility] emergency department this week for [...] dry clinically. Previous labs and imaging from [facility] in [facility] reviewed. Aside from her mild [...] slight leukocytosis, down from previous labs at [facility] and [facility]. Otherwise unremarkable. Mild hyponatremia which [...] In 3 days 07/12/2024 EDT [address] [place] [address]- Business (1) Additional Instructions: Call the office [...] worsening symp (more content not included)... Normal [facility] Comment on above: Result Comment: Elec tronically Signed By: Ambrose Cedeño DO\.br\Date and Time Signed: 07/09/24 14:21 EDT ED Patient Summaryon 024 ED Patient Summary ED Patient Summary [address] [address] Patient Discharge Instructions Person Information Name: RACHEL MCGARRY Age: 44 Years Arrival Date: 07/09/2024 12:39:08 Discharge Diagnosis: Malaise; Viral syndrome Primary Care Physician: AJIT PETTIT CNP Provider Information Primary Provider: Ambrose Cedeño DO Advanced Master Pilot:None The exam and treatment you received in the Emergency Department were for an urgent problem and are not intended as complete care. It is important that you follow up with a doctor, nurse practitioner, or physician?s export sales assistant for ongoing care. If your symptoms [...] With: Address: When: AJIT PETTIT [address] [place] [address] [employer] ([email or web address] In 3 days 07/12/2024 Comments: Call the [...] opioids can be used to help relieve pwzrcsav-fh-xjsdph pain and are often prescribed following a [...] place a (more content not included)... Normal [facility] ED Patient Summary ED Patient Summary [place] [id number] Patient Discharge Instructions Person Information Name: RACHEL MCGARRY Age: 44 Years Arrival Date: 07/09/2024 12:39:08 Discharge Diagnosis: Malaise; Viral syndrome Primary Care Physician: AJIT PETTIT CNP Provider Information Primary Provider: Ambrose Cedeño DO Advanced Master Pilot:None The exam and treatment you received in the Emergency Department were for an urgent problem and are not intended as complete care. It is important that you follow up with a doctor, nurse practitioner, or physician?s export sales assistant for ongoing care. If your symptoms [...] With: Address: When: AJIT WILVER [address] [place] [address] [employer] ([email or web address] In 3 days 07/12/2024 Comments: Call the [...] opioids can be used to help relieve smapgexb-gj-bbcddj pain and are often prescribed following a [...] place a (more content not included)... Normal [facility] HEMATOLOGYOrdered By: SYSTEM SYSTEM on 07-09-2024 [...] 07-09-2024 Albumin [Mass/Vol] 4.0 g/dL Normal 3.3-5.0 [facility] Comment on above: Performed By: #### 2 [id number] #### [facility] [address] [place] [address] Albumin/Globulin (S) [Mass conc ratio] 1.3 Normal 1.1-2.2 [facility] Comment on above: Performed By: #### 2 [id number] #### [facility] [address] [place] [address] ALP [Catalytic activity/Vol] 65 Int._Unit/L Normal 21-98 [facility] Comment on above: Performed By: #### 2 [id number] #### [facility] [address] [place] [address] ALT No additional P-5'-P [Catalytic activity/Vol] 10 Int._Unit/L Normal 6-46 [facility] Comment on above: Performed By: #### 2 [id number] #### [facility] [address] [place] [address] AST [Catalytic activity/Vol] 11 Int._Unit/L Normal 5-43 [facility] Comment on above: Performed By: #### 2 [id number] #### [facility] [address] [place] [address] Bilirubin [Mass/Vol] 0.2 mg/dL Normal 0.0-1.1 [facility] Comment on above: Performed By: #### 2 [id number] #### [facility] [address] [place] [address] Bilirubin.direct [Mass/Vol] 0.0 mg/dL Normal 0.0-0.4 [facility] Comment on above: Performed By: #### 2 [id number] #### [facility] [address] [place] [address] Bilirubin.indirect [Mass or moles/Vol] 0.2 mg/dL Normal 0.1-0.9 [facility] Comment on above: Performed By: #### 2 557139 #### [facility] [address] [place] [address] Globulin (S) [Mass/Vol] 3.2 g/dL Normal 1.4-4.0 [facility] Comment on above: Performed By: #### 2 [id number] #### [facility] [address] [place] [address] Protein [Mass/Vol] 7.2 g/dL Normal 6.0-7.8 [facility] Comment on above: Performed By: #### 2 [id number] #### [facility] [address] [place] [address] PT & PTTon 07-09-2024 aPTT Coag (PPP) [Time] 28.9 second(s) Normal 25.1-36.5 [facility] Comment on above: Result Comment: Para [...] the same coagulation reagent and instrumentation as [facility]. Currently there are no coagulation studies available worldwide for children to 14 days, and no normal ranges. Heparin therapeutic range (represented by Anti-Factor Xa activity of 0.2 - 0.4 U/mL) corresponds to PTT of 56.6 - 109.0 sec. Performed By: #### 1 [id number] #### [facility] [address] [place] [address] INR Coag (PPP) [Relative time] 0.85 {INR} Invalid Interpretation Code [facility] Comment on above: Result Comment: INR results are specifically intended to assess patients stabilized on long-term Anticoagulation therapy suggested INR?s ?Less Intensive Anticoagulation? 2.0 ? 3.0 Conventional Range 3.0 ? 4.5 Performed By: #### 1 [id number] #### [facility] [address] [place] [address] PT Coag (PPP) [Time] 9.5 second(s) Normal 9.4-12.5 F [facility] Comment on above: Result Comment: 15 d [...] the same coagulation reagent and instrumentation as [facility]. Currently there are no coagulation studies available worldwide for children to 14 days, and no normal ranges. Performed By: #### 1 [id number] #### [facility] [address] [place] [address] SEROLOGYOrdered By: Rosanna Phillips on 07-09-2024 Beta HCG ( test) Ql Negative (07/09/24 12:50 PM) Normal [facility] Man Sero Troponin 0 Hr.on 07-09-2024 Troponin HS 3.00 pg/mL Low 10.10-27.1 0 [facility] Comment on above: Result Comment: The 95% CI (Confidence Interval) PPV (Positive Predictive Value) for myocardial infarction in females is 38 pg/mL, in males 51 pg/mL. The results should be used in conjunction with clinical conditions of myocardial infarction. (Access High Sensitivity Troponin I Instructions For Use, UGOBE, May 2018) Performed By: #### 1 [id number] #### [facility] [address] [place] [address] Troponin 1 Hr.on 07-09-2024 Troponin HS 3.60 pg/mL Low 10.10-27.1 0 [facility] Comment on above: Result Comment: The 95% CI (Confidence Interval) PPV (Positive Predictive Value) for myocardial infarction in females is 38 pg/mL, in males 51 pg/mL. The results should be used in conjunction with clinical conditions of myocardial infarction. (Access High Sensitivity Troponin I Instructions For Use, UGOBE, May 2018) Performed By: #### 1 [id number] #### [facility] [address] [place] [address] XR Chest Single Viewon 07-09 XR Chest [...] mGy = na DAP = na Normal [facility] eGFRon 07-09-2024 eGFR 117 mL/min/1.73 m2 Normal >=59 [facility] Comment on above: Performed By: #### 1 [id number] #### [facility] [address] [place] [address] Alanine aminotransferase [En zymatic activity/volume] in Serum or PlasmaOrdered By: Jono Ferrari on 07-06-2024 ALT [Catalytic activity/Vol] 9 U/L Normal 7-52 [facility] Comment on above: Performed By: #### C MP, LIPASE, CBC #### [facility] [address] [place] [address] Albumin [Mass/volume] in Ser um or Plasma by Bromocresol green (BCG) dye binding methoOrdered By: Jono Ferrari on 07-06-2024 Albumin BCG dye [Mass/Vol] 4.2 g/dL 3.5-5.7 [facility] Alkaline phosphatase [Enzyma tic activity/volume] in Serum or PlasmaOrdered By: Jono Ferrari on 07-06-2024 ALP [Catalytic activity/Vol] 59 U/L Normal 34-104 [facility] Comment on above: Performed By: #### C MP, LIPASE, CBC #### [address] Aspartate aminotransferase [ Enzymatic activity/volume] in Serum or PlasmaOrdered By: Jono Ferrari on 07-06-2024 AST [Catalytic activity/Vol] 10 U/L Low 13-39 [facility] Comment on above: Performed By: #### C MP, LIPASE, CBC #### [address] Automated basophil %Ordered By: Jono Ferrari on 07-06-2024 Basophils/100 WBC (Bld) 1.1 % Normal . [facility] Comment on above: Performed By: #### C MP, LIPASE, CBC #### [address] Automated basophil countOrde red By: Jono Ferrari on 07-06-2024 Basophils (Bld) [#/Vol] 0.3 10*3/uL High 0.0-0.2 [facility] Comment on above: Result Comment: PERF ORMED BY: [place] [address] PATHOLOGIST HORIZONTAL DRILL OPERATOR RIDGE HUERTA M.D. Performed By: #### C MP, LIPASE, CBC #### [address] Automated blood monocyte cou ntOrdered By: Jono Ferrari on 07-06-2024 Monocytes (Bld) [#/Vol] 1.6 10*3/uL High 0.0-0.8 [facility] Comment on above: Performed By: #### C MP, LIPASE, CBC #### [address] Automated eosinophil %Ordere d By: Jono Ferrari on 07-06-2024 Eosinophils/100 WBC (Bld) 0.6 % Normal . [facility] Comment on above: Performed By: #### C MP, LIPASE, CBC #### [address] Automated eosinophil countOr dered By: Jono Ferrari on 07-06-2024 Eosinophils (Bld) [#/Vol] 0.1 10*3/uL Normal 0.0-0.45 [facility] Comment on above: Performed By: #### C MP, LIPASE, CBC #### [facility] [address] Automated monocyte %Ordered By: Jono Ferrari on 07-06-2024 Monocytes/100 WBC (Bld) 6.9 % Normal . [facility] Comment on above: Performed By: #### C MP, LIPASE, CBC #### [facility] [address] [place] [address] Automated neutrophil %Ordere d By: Jono Ferrari on 07-06-2024 Neutrophils/100 WBC (Bld) 66.1 % Normal . [facility] Comment on above: Performed By: #### C MP, LIPASE, CBC #### [facility] [address] [place] [address] Bilirubin.total [Mass/volume ] in Serum or PlasmaOrdered By: Jono Ferrari on 07-06-2024 Bilirubin [Mass/Vol] 0.3 mg/dL Normal 0.3-1.0 [facility] Comment on above: Performed By: #### C MP, LIPASE, CBC #### [facility] [address] [place] [address] CT abdomen pelvis w conon CT abdomen pelvis w con [facility] Main [place] [address] [place] [address] CT Scan Report Signed Patient: Rachel Mcgarry MR#: [id number] 1 : 1980 Acct:[id number] Age/Sex: 44 / F ADM Date: 07/06/24 [...] Praveen Welch M.D.07/06/2024 7:13 PM Dictation Location: [place] [address] Transcribed By: [facility] 07/06/241912 Dictated By: Praveen Welch DO 07/06/241910 Signed By: 07/06/241912 Normal [facility] Calcium [Mass/volume] in Ser um or PlasmaOrdered By: Jono Ferrari on 07-06-2024 Calcium [Mass/Vol] 9.2 mg/dL Normal 8.6-10.3 [facility] Comment on above: Performed By: #### C MP, LIPASE, CBC #### [facility] [address] Carbon dioxide, total [Moles /volume] in Serum or PlasmaOrdered By: Jono Ferrari on 07-06-2024 CO2 [Moles/Vol] 25.2 mmol/L Normal 21.0-31.0 [facility] Comment on above: Performed By: #### C MP, LIPASE, CBC #### [facility] [address] [place] [address] [place] Chloride [Moles/volume] in S alissa or PlasmaOrdered By: Jono Ferrari on 07-06-2024 Chloride [Moles/Vol] 97 mmol/L Low 98-107 [facility] Comment on above: Performed By: #### C MP, LIPASE, CBC #### [address] Complete Blood Count Auto Di ffon 07-06-2024 Mean Corpuscular HGB Conc 34.5 g/dL Normal 32.0-35.0 [facility] Comment on above: Performed By: #### C MP, LIPASE, CBC #### [address] Monocytes/100 WBC (Bld) 18.69 % Normal 0.00-20.00 [facility] Comment on above: Performed By: #### C MP, LIPASE, CBC #### [address] NRBC% 0.0 /100{WBC} Normal 0-0.5 [facility] Comment on above: Performed By: #### C MP, LIPASE, CBC #### [address] Comprehensive Metabolic Pane rosa 07-06-2024 Albumin [Mass/Vol] 4.2 g/dL Normal 3.5-5.7 [facility] Comment on above: Performed By: #### C MP, LIPASE, CBC #### [address] Creatinine Clr Calc Pharmacy 108.35 Normal [facility] Comment on above: Result Comment: PERF ORMED BY: [place] [address] PATHOLOGIST HORIZONTAL DRILL OPERATOR RIDGE HUERTA M.D. Performed By: #### C MP, LIPASE, CBC #### [address] GFR/1.73 sq M.predicted MDRD (S/P/Bld) [Vol rate/Area] mL/min/{1.73_m2} Normal [facility] Comment on above: Performed By: #### C MP, LIPASE, CBC #### [address] Creatinine [Mass/volume] in Serum or PlasmaOrdered By: Jono Ferrari on 07-06-2024 Creatinine [Mass/Vol] 0.59 mg/dL Low 0.60-1.20 [facility] Comment on above: Performed By: #### C MP, LIPASE, CBC #### [facility] [address] ECG 12 lead ECGon 07-06-2024 ECG 12 lead ECG [facility] Main [place] [address] [place] [address] Electrocardiograph Report Signed Patient: Rachel Mcgarry MR#: [id number] 1 : 1980 Acct:[id number] Age/Sex: 44 / F ADM Date: 07/06/24 [...] By Edna Munoz MD 07/06/241935 Normal [facility] Erythrocyte distribution wid th [Ratio] by Automated countOrdered By: Jono Ferrari on 07-06-2024 Erythrocyte distribution width (RBC) [Ratio] 13.2 % Normal 11.9-15.3 [facility] Comment on above: Performed By: #### C MP, LIPASE, CBC #### [facility] [address] [place] [address] Erythrocytes [#/volume] in B lood by Automated countOrdered By: Jono Ferrari on 07-06-2024 RBC (Bld) [#/Vol] 4.93 10*6/uL Normal 3.60-5.00 [facility] Comment on above: Performed By: #### C MP, LIPASE, CBC #### [address] Glucose [Mass/volume] in Ser um or PlasmaOrdered By: Jono Ferrari on 07-06-2024 Glucose [Mass/Vol] 142 mg/dL High 70-100 [facility] Comment on above: ADA recommended refe rence rangeRandom Glucose Reference Range is dependent on time and content of last meal. Glucose of more than 200 mg/dL in a nonstressed, ambulatory subject supports the diagnosis of Diabetes Mellitus. Result Comment: Herod om Glucose Reference Range is dependent on time and content of last meal. Glucose of more than 200 mg/dL in a nonstressed, ambulatory subject supports the diagnosis of Diabetes Mellitus. ADA recommended reference range Performed By: #### C MP, LIPASE, CBC #### [address] Hematocrit [Volume Fraction] of Blood by Automated countOrdered By: Jono Ferrari on 07-06-2024 Hematocrit (Bld) [Volume fraction] 43.5 % Normal 34.0-46.4 [facility] Comment on above: Performed By: #### C MP, LIPASE, CBC #### [address] Hemoglobin [Mass/volume] in BloodOrdered By: Jono Ferrari on 07-06-2024 Hemoglobin (Bld) [Mass/Vol] 15.0 g/dL Normal 11.8-15.4 [facility] Comment on above: Performed By: #### C MP, LIPASE, CBC #### [address] Leukocytes [#/volume] correc cherie for nucleated erythrocytes in Blood by Automated counOrdered By: Jono Ferrari on 07-06-2024 WBC corrected for nucl RBC Auto (Bld) [#/Vol] 22.9 10*3/uL High 3.8-11.6 [facility] Leukocytes [#/volume] in Blo od by Automated countOrdered By: Jono Ferrari on 07-06-2024 WBC (Bld) [#/Vol] 22.9 10*3/uL High 3.8-11.6 [facility] Comment on above: Performed By: #### C MP, LIPASE, CBC #### [address] Lipase [Enzymatic activity/v olume] in Serum or PlasmaOrdered By: Jono Ferrari on 07-06-2024 Lipase [Catalytic activity/Vol] 48.0 U/L Normal 11.0-82.0 [facility] Comment on above: Result Comment: PERF ORMED BY: [place] [address] PATHOLOGIST HORIZONTAL DRILL OPERATOR RIDGE HUERTA M.D. Performed By: #### C MP, LIPASE, CBC #### [address] Lymphocytes [#/volume] in Bl ood by Automated countOrdered By: Jono Ferrari on 07-06-2024 Lymphocytes (Bld) [#/Vol] 5.8 10*3/uL High 1.00-4.8 [facility] Comment on above: Performed By: #### C MP, LIPASE, CBC #### [address] Lymphocytes/100 leukocytes i n Blood by Automated countOrdered By: Jono Ferrari on 07-06-2024 Lymphocytes/100 WBC (Bld) 25.3 % Normal . [facility] Comment on above: Performed By: #### C MP, LIPASE, CBC #### [address] MCH [Entitic mass] by Automa cherie countOrdered By: Jono Ferrari on 07-06-2024 MCH (RBC) [Entitic mass] 30.5 pg Normal 24.7-34.3 [facility] Comment on above: Performed By: #### C MP, LIPASE, CBC #### [address] MCHC Auto (RBC) [Mass/Vol]Or dered By: Jono Ferrari on 07-06-2024 MCHC (RBC) [Mass/Vol] 34.5 g/dL 32.0-35.0 [facility] MCV [Entitic volume] by Auto mated countOrdered By: Jono Ferrari on 07-06-2024 MCV (RBC) [Entitic vol] 88.3 fL Normal 80-100 [facility] Comment on above: Performed By: #### C MP, LIPASE, CBC #### [facility] [address] Monocyte distribution width [Entitic volume] in Blood by AutomatedOrdered By: Jono Ferrari on 07-06-2024 Monocyte distribution width Auto (Bld) [Entitic vol] 18.69 % 0.00-20.00 [facility] Neutrophils [#/volume] in Bl ood by Automated countOrdered By: Jono Ferrari on 07-06-2024 Neutrophils (Bld) [#/Vol] 15.1 10*3/uL High 1.8-7.7 [facility] Comment on above: Performed By: #### C MP, LIPASE, CBC #### [facility] [address] No Panel InformationOrdered By: Jono Ferrari on 07-06-2024 Estimated GFR (CKD-EPI) > 60.0 mL/Min [facility] Creatinine Clearance (Chem 108.35 [facility] Nucleated erythrocytes [Pres ence] in Blood by Automated countOrdered By: Jono Ferrari on 07-06-2024 Nucleated RBC Auto Ql (Bld) 0.0 /100{WBC} 0-0.5 [facility] Platelet mean volume [Entiti c volume] in Blood by Automated countOrdered By: Jono Ferrari on 07-06-2024 Platelet mean volume (Bld) [Entitic vol] 7.2 fL Normal 6.3-10.7 [facility] Comment on above: Performed By: #### C MP, LIPASE, CBC #### [facility] [address] [place] [address] [place] Platelets [#/volume] in Bloo d by Automated countOrdered By: Jono Ferrari on 07-06-2024 Platelets (Bld) [#/Vol] 387 10*3/uL Normal 150-450 [facility] Comment on above: Performed By: #### C MP, LIPASE, CBC #### [address] Potassium [Moles/volume] in Serum or PlasmaOrdered By: Jono Ferrari on 07-06-2024 Potassium [Moles/Vol] 3.9 mmol/L Normal 3.5-5.1 [facility] Comment on above: Performed By: #### C MP, LIPASE, CBC #### [address] Protein [Mass/volume] in Ser um or PlasmaOrdered By: Jono Ferrari on 07-06-2024 Protein [Mass/Vol] 7.2 g/dL Normal 6.4-8.9 [facility] Comment on above: Performed By: #### C MP, LIPASE, CBC #### [address] Serum globulin measurement b y calculation (mass/volume)Ordered By: Jono Ferrari on 07-06-2024 Globulin (S) [Mass/Vol] 3.0 g/dL Normal [facility] Comment on above: Performed By: #### C MP, LIPASE, CBC #### [address] Serum or plasma albumin/glob ulin mass ratioOrdered By: Jono Ferrari on 07-06-2024 Albumin/Globulin [Mass ratio] 1.4 {ratio} Normal [facility] Comment on above: Performed By: #### C MP, LIPASE, CBC #### [address] Serum or plasma anion gap de terminationOrdered By: Jono Ferrari on 07-06-2024 Anion gap [Moles/Vol] 13.7 mmol/L Normal 6.0-15.0 [facility] Comment on above: Performed By: #### C MP, LIPASE, CBC #### [address] Sodium [Moles/volume] in Ser um or PlasmaOrdered By: Jono Ferrari on 07-06-2024 Sodium [Moles/Vol] 132 mmol/L Low 136-145 [facility] Comment on above: Performed By: #### C MP, LIPASE, CBC #### [facility] [address] Urea nitrogen [Mass/volume] in Serum or PlasmaOrdered By: Jono Ferrari on 07-06-2024 Urea nitrogen [Mass/Vol] 8 mg/dL Normal 7-25 [facility] Comment on above: Performed By: #### C MP, LIPASE, CBC #### [facility] [address] XR chest 2V*on 07-06-2024 XR chest 2V* [facility] [place] [address] [place] [address] XRay Report Signed Patient: Rachel Mcgarry MR#: [id number] 1 : 1980 Acct:[id number] Age/Sex: 44 / F ADM Date: 07/06/24 [...] Praveen Welch M.D.07/06/2024 8:10 PM Dictation Location: [place] [address] Transcribed By: [facility] 07/06/242009 Dictated By: Praveen Welch DO 07/06/242008 Signed By: 07/06/242009 Normal [facility] Alanine aminotransferase [En zymatic activity/volume] in Serum or PlasmaOrdered By: Ajit Pettit on 07-04-2024 ALT [Catalytic activity/Vol] 7 U/L Normal 7-52 [facility] Comment on above: Performed By: #### C BC, CMP, LIPID #### [address] Albumin [Mass/volume] in Ser um or Plasma by Bromocresol green (BCG) dye binding methoOrdered By: Ajit Pettit on 07-04-2024 Albumin BCG dye [Mass/Vol] 3.8 g/dL 3.5-5.7 [facility] Alkaline phosphatase [Enzyma tic activity/volume] in Serum or PlasmaOrdered By: Ajit Pettit on 07-04-2024 ALP [Catalytic activity/Vol] 54 U/L Normal 34-104 [facility] Comment on above: Performed By: #### C BC, CMP, LIPID #### [address] Aspartate aminotransferase [ Enzymatic activity/volume] in Serum or PlasmaOrdered By: Ajit Pettit on 07-04-2024 AST [Catalytic activity/Vol] 8 U/L Low 13-39 [facility] Comment on above: Performed By: #### C BC, CMP, LIPID #### [address] Automated basophil %Ordered By: Ajit Pettit on 07-04-2024 Basophils/100 WBC (Bld) 0.6 % Normal . [facility] Comment on above: Performed By: #### C BC, CMP, LIPID #### [address] Automated basophil countOrde red By: Ajit Pettit on 07-04-2024 Basophils (Bld) [#/Vol] 0.1 10*3/uL Normal 0.0-0.2 [facility] Comment on above: Result Comment: PERF ORMED BY: [place] [address] PATHOLOGIST HORIZONTAL DRILL OPERATOR RIDGE HUERTA M.D. Performed By: #### C BC, CMP, LIPID #### [address] Automated blood monocyte cou ntOrdered By: Ajit Pettit on 07-04-2024 Monocytes (Bld) [#/Vol] 1.5 10*3/uL High 0.0-0.8 [facility] Comment on above: Performed By: #### C BC, CMP, LIPID #### [facility] [address] Automated eosinophil %Ordere d By: Ajit Millanc on 07-04-2024 Eosinophils/100 WBC (Bld) 0.5 % Normal . [facility] Comment on above: Performed By: #### C BC, CMP, LIPID #### [facility] [address] Automated eosinophil countOr dered By: Ajit Pettit on 07-04-2024 Eosinophils (Bld) [#/Vol] 0.1 10*3/uL Normal 0.0-0.45 [facility] Comment on above: Performed By: #### C BC, CMP, LIPID #### [facility] [address] Automated monocyte %Ordered By: Ajit Pettit on 07-04-2024 Monocytes/100 WBC (Bld) 7.9 % Normal . [facility] Comment on above: Performed By: #### C BC, CMP, LIPID #### [address] Automated neutrophil %Ordere d By: Ajit Millanc on 07-04-2024 Neutrophils/100 WBC (Bld) 66.4 % Normal . [facility] Comment on above: Performed By: #### C BC, CMP, LIPID #### [address] Bilirubin.total [Mass/volume ] in Serum or PlasmaOrdered By: Ajit Pettit on 07-04-2024 Bilirubin [Mass/Vol] 0.3 mg/dL Normal 0.3-1.0 [facility] Comment on above: Performed By: #### C BC, CMP, LIPID #### [address] Calcium [Mass/volume] in Ser um or PlasmaOrdered By: Ajit Pettit on 07-04-2024 Calcium [Mass/Vol] 8.9 mg/dL Normal 8.6-10.3 [facility] Comment on above: Performed By: #### C BC, CMP, LIPID #### [facility] [address] [place] [address] [place] Carbon dioxide, total [Moles /volume] in Serum or PlasmaOrdered By: Ajit Pettit on 07-04-2024 CO2 [Moles/Vol] 29.2 mmol/L Normal 21.0-31.0 [facility] Comment on above: Performed By: #### C BC, CMP, LIPID #### [facility] [address] [place] [address] [place] Chloride [Moles/volume] in S alissa or PlasmaOrdered By: Ajit Pettit on 07-04-2024 Chloride [Moles/Vol] 92 mmol/L Low 98-107 [facility] Comment on above: Performed By: #### C BC, CMP, LIPID #### [facility] [address] [place] [id number] [place] Cholesterol [Mass/volume] in Serum or PlasmaOrdered By: Ajit Pettit on 07-04-2024 Cholesterol [Mass/Vol] 185 mg/dL Normal 140-200 [facility] Comment on above: Chol less than 200 m g/dl low riskChol 201-239 mg/dl borderline riskChol 240 mg/dl and greater high risk Result Comment: Chol less than 200 mg/dl low risk Chol 201-239 mg/dl borderline risk Chol 240 mg/dl and greater high risk Performed By: #### C BC, CMP, LIPID #### [facility] [address] [place] [id number] [place] Cholesterol in LDL Calc [Mas s/Vol]Ordered By: Ajit Pettit on 07-04-2024 Cholesterol in LDL [Mass/Vol] 58 mg/dL 0-100 [facility] Comment on above: LDL ATP III CLASSIFI CATIONLDL less than 100 mg/dL OptimalLDL 100-129 mg/dL Near or above optimalLDL 130-159 mg/dL Borderline highLDL 160-189 mg/dL HighLDL greater than 189 mg/dL Very high Cholesterol in VLDL Calc [Ma ss/Vol]Ordered By: Ajit Pettit on 07-04-2024 Cholesterol in VLDL [Mass/Vol] 78 mg/dL [facility] Complete Blood Count Auto Di ffon 07-04-2024 Mean Corpuscular HGB Conc 34.2 g/dL Normal 32.0-35.0 [facility] Comment on above: Performed By: #### C BC, CMP, LIPID #### [address] NRBC% 0.1 /100{WBC} Normal 0-0.5 [facility] Comment on above: Performed By: #### C BC, CMP, LIPID #### [address] Comprehensive Metabolic Pane rosa 07-04-2024 Albumin [Mass/Vol] 3.8 g/dL Normal 3.5-5.7 [facility] Comment on above: Performed By: #### C BC, CMP, LIPID #### [address] GFR/1.73 sq M.predicted MDRD (S/P/Bld) [Vol rate/Area] mL/min/{1.73_m2} Normal [facility] Comment on above: Performed By: #### C BC, CMP, LIPID #### [address] Creatinine [Mass/volume] in Serum or PlasmaOrdered By: Ajit Pettit on 07-04-2024 Creatinine [Mass/Vol] 0.61 mg/dL Normal 0.60-1.20 [facility] Comment on above: Performed By: #### C BC, CMP, LIPID #### [address] Erythrocyte distribution wid th [Ratio] by Automated countOrdered By: Ajit Pettit on 07-04-2024 Erythrocyte distribution width (RBC) [Ratio] 13.0 % Normal 11.9-15.3 [facility] Comment on above: Performed By: #### C BC, CMP, LIPID #### [facility] [address] [place] [address] [place] Erythrocytes [#/volume] in B lood by Automated countOrdered By: Ajit Pettit on 07-04-2024 RBC (Bld) [#/Vol] 4.55 10*6/uL Normal 3.60-5.00 [facility] Comment on above: Performed By: #### C BC, CMP, LIPID #### [facility] [address] [place] [address] [place] Glucose [Mass/volume] in Ser um or PlasmaOrdered By: Ajit Pettit on 07-04-2024 Glucose [Mass/Vol] 164 mg/dL High 70-100 [facility] Comment on above: ADA recommended refe rence rangeRandom Glucose Reference Range is dependent on time and content of last meal. Glucose of more than 200 mg/dL in a nonstressed, ambulatory subject supports the diagnosis of Diabetes Mellitus. Result Comment: Herod om Glucose Reference Range is dependent on time and content of last meal. Glucose of more than 200 mg/dL in a nonstressed, ambulatory subject supports the diagnosis of Diabetes Mellitus. ADA recommended reference range Performed By: #### C BC CMP, LIPID #### [address] Hematocrit [Volume Fraction] of Blood by Automated countOrdered By: Ajit Pettit on 07-04-2024 Hematocrit (Bld) [Volume fraction] 40.0 % Normal 34.0-46.4 [facility] Comment on above: Performed By: #### C BC, CMP, LIPID #### [facility] [address] [place] [address] [place] Hemoglobin [Mass/volume] in BloodOrdered By: Ajit Pettit on 07-04-2024 Hemoglobin (Bld) [Mass/Vol] 13.7 g/dL Normal 11.8-15.4 [facility] Comment on above: Performed By: #### C BC, CMP, LIPID #### [place] [address] [place] Leukocytes [#/volume] correc cherie for nucleated erythrocytes in Blood by Automated counOrdered By: Ajit Pettit on 07-04-2024 WBC corrected for nucl RBC Auto (Bld) [#/Vol] 19.3 10*3/uL High 3.8-11.6 [facility] Leukocytes [#/volume] in Blo od by Automated countOrdered By: Ajit Pettit on 07-04-2024 WBC (Bld) [#/Vol] 19.3 10*3/uL High 3.8-11.6 [facility] Comment on above: Performed By: #### C BC, CMP, LIPID #### [facility] [address] Lipid Panelon 07-04-2024 LDL Cholesterol,Calculated 58 mg/dL Normal 0-100 [facility] Comment on above: Result Comment: LDL ATP III CLASSIFICATION LDL less than 100 mg/dL Optimal LDL 100-129 mg/dL Near or above optimal LDL 130-159 mg/dL Borderline high LDL 160-189 mg/dL High LDL greater than 189 mg/dL Very high Performed By: #### C BC, CMP, LIPID #### [facility] [address] Triglyceride w/Reflex 393 mg/dL High 0-149 [facility] Comment on above: Result Comment: TRIG ATP III CLASSIFICATION TRIG less than 150 mg/dL Normal TRIG 150-199 mg/dL Borderline high TRIG 200-500 mg/dL High TRIG greater than 500 mg/dL Very high Standard traceable to the Center for Disease Conrtrol and Prevention (CDC) test method. Performed By: #### C BC, CMP, LIPID #### [facility] [address] VLDL CHOLESTEROL 78 mg/dL Normal [facility] Comment on above: Performed By: #### C BC, CMP, LIPID #### [facility] [address] Lymphocytes [#/volume] in Bl ood by Automated countOrdered By: Ajit Pettit on 07-04-2024 Lymphocytes (Bld) [#/Vol] 4.7 10*3/uL Normal 1.00-4.8 [facility] Comment on above: Performed By: #### C BC, CMP, LIPID #### [address] Lymphocytes/100 leukocytes i n Blood by Automated countOrdered By: Ajit Pettit on 07-04-2024 Lymphocytes/100 WBC (Bld) 24.6 % Normal . [facility] Comment on above: Performed By: #### C BC, CMP, LIPID #### [address] MCH [Entitic mass] by Automa cherie countOrdered By: Ajit Pettit on 07-04-2024 MCH (RBC) [Entitic mass] 30.0 pg Normal 24.7-34.3 [facility] Comment on above: Performed By: #### C BC, CMP, LIPID #### [address] MCHC Auto (RBC) [Mass/Vol]Or dered By: Ajit Pettit on 07-04-2024 MCHC (RBC) [Mass/Vol] 34.2 g/dL 32.0-35.0 [facility] MCV [Entitic volume] by Auto mated countOrdered By: Ajit Pettit on 07-04-2024 MCV (RBC) [Entitic vol] 87.9 fL Normal 80-100 [facility] Comment on above: Performed By: #### C BC, CMP, LIPID #### [address] Neutrophils [#/volume] in Bl ood by Automated countOrdered By: Ajit Pettit on 07-04-2024 Neutrophils (Bld) [#/Vol] 12.8 10*3/uL High 1.8-7.7 [facility] Comment on above: Performed By: #### C BC, CMP, LIPID #### [address] No Panel InformationOrdered By: Ajit Pettit on 07-04-2024 Estimated GFR (CKD-EPI) > 60.0 mL/Min [facility] Creatinine Clearance (Chem N/A [facility] Nucleated erythrocytes [Pres ence] in Blood by Automated countOrdered By: Ajit Pettit on 07-04-2024 Nucleated RBC Auto Ql (Bld) 0.1 /100{WBC} 0-0.5 [facility] Platelet mean volume [Entiti c volume] in Blood by Automated countOrdered By: Ajit Pettit on 07-04-2024 Platelet mean volume (Bld) [Entitic vol] 7.0 fL Normal 6.3-10.7 [facility] Comment on above: Performed By: #### C BC, CMP, LIPID #### [facility] [address] [place] [address] [place] Platelets [#/volume] in Bloo d by Automated countOrdered By: Ajit Pettit on 07-04-2024 Platelets (Bld) [#/Vol] 350 10*3/uL Normal 150-450 [facility] Comment on above: Performed By: #### C BC, CMP, LIPID #### [facility] [address] [place] [address] [place] Potassium [Moles/volume] in Serum or PlasmaOrdered By: Ajit Pettit on 07-04-2024 Potassium [Moles/Vol] 4.6 mmol/L Normal 3.5-5.1 [facility] Comment on above: Performed By: #### C BC, CMP, LIPID #### [facility] [address] [place] [address] [place] Protein [Mass/volume] in Ser um or PlasmaOrdered By: Ajit Pettit on 07-04-2024 Protein [Mass/Vol] 5.9 g/dL Low 6.4-8.9 [facility] Comment on above: Performed By: #### C BC, CMP, LIPID #### [facility] [address] [place] [address] [place] Serum globulin measurement b y calculation (mass/volume)Ordered By: Ajit Pettit on 07-04-2024 Globulin (S) [Mass/Vol] 2.1 g/dL Normal [facility] Comment on above: Performed By: #### C BC, CMP, LIPID #### [facility] [address] Serum or plasma albumin/glob ulin mass ratioOrdered By: Ajit Pettit on 07-04-2024 Albumin/Globulin [Mass ratio] 1.8 {ratio} Normal [facility] Comment on above: Performed By: #### C BC, CMP, LIPID #### [facility] [address] [place] [address] Serum or plasma anion gap de terminationOrdered By: Ajit Pettit on 07-04-2024 Anion gap [Moles/Vol] 13.4 mmol/L Normal 6.0-15.0 [facility] Comment on above: Performed By: #### C BC, CMP, LIPID #### [address] Serum or plasma high density lipoprotein (HDL) cholesterol measurementOrdered By: Ajit Pettit on 07-04-2024 Cholesterol in HDL [Mass/Vol] 48 mg/dL Normal 23-92 [facility] Comment on above: HDL CHOL ATP-III CLA SSIFICATION Cardiovascular RiskHDL > or equal to 60 mg/dL LOWHDL < 40 mg/dL HIGH Result Comment: HDL CHOL ATP-III CLASSIFICATION Cardiovascular Risk HDL > or equal to 60 mg/dL LOW HDL < 40 mg/dL HIGH Performed By: #### C BC, CMP, LIPID #### [facility] [address] [place] [address] Serum or plasma total choles terol/high density lipoprotein (HDL) cholesterol mass ratOrdered By: Ajit Pettit on 07-04-2024 Cholesterol.total/Suellen sterol in HDL [Mass ratio] 3.9 {ratio} Normal <5.0 [facility] Comment on above: Result Comment: PERF ORMED BY: [place] [address] PATHOLOGIST HORIZONTAL DRILL OPERATOR RIDGE HUERTA M.D. Performed By: #### C BC, CMP, LIPID #### [facility] [address] [place] [address] Sodium [Moles/volume] in Ser um or PlasmaOrdered By: Ajit Pettit on 07-04-2024 Sodium [Moles/Vol] 130 mmol/L Low 136-145 [facility] Comment on above: Performed By: #### C BC, CMP, LIPID #### [facility] [address] [place] [address] Triglyceride [Mass/volume] i n Serum or PlasmaOrdered By: Ajit Pettit on 07-04-2024 Triglyceride [Mass/Vol] 393 mg/dL High 0-149 [facility] Comment on above: TRIG ATP III CLASSIF ICATIONTRIG less than 150 mg/dL NormalTRIG 150-199 mg/dL Borderline highTRIG 200-500 mg/dL High TRIG greater than 500 mg/dL Very highStandard traceable to the Center for Disease Conrtrol and Prevention (CDC) test method. Urea nitrogen [Mass/volume] in Serum or PlasmaOrdered By: Ajit Pettit on 07-04-2024 Urea nitrogen [Mass/Vol] 6 mg/dL Low 7-25 [facility] Comment on above: Performed By: #### C BC, CMP, LIPID #### [facility] [address] [place] [address] MR lumbar spine wo conon MR lumbar spine wo con [facility] [place] [address] MRI Report Signed Patient: Rachel Mcgarry MR#: [id number] 1 : 1980 Acct:[id number] Age/Sex: 44 / F ADM Date: 06/08/24 Loc: [facility] Room: Type: [facility] Attending Dr: Ajit DEJESUS Copies to: [...] Dar Messina M.D.06/08/2024 4:52 PM Dictation Location: [place] [address] Transcribed By: [facility] 06/08/24 1652 Dictated By: Dar Messina II, MD 06/08/24 1643 Signed By: 06/08/24 1652 Normal [facility] A1C with Estimated Average G marilee 05-16-2024 Glucose [Mass/Vol] 137 mg/dL Normal [facility] Comment on above: Order Comment: Reaso n for Exam Type 2 diabetes mellitus without complication, without long- Result Comment: PERF ORMED BY: [place] [address] PATHOLOGIST HORIZONTAL DRILL OPERATOR RIDGE HUERTA M.D. Performed By: #### C BC, CMP, LIPID #### [facility] [address] [place] [id number] [place] Alanine aminotransferase [En zymatic activity/volume] in Serum or PlasmaOrdered By: Ajit Pettit on 05-16-2024 ALT [Catalytic activity/Vol] 11 U/L Normal 7-52 [facility] Comment on above: Order Comment: Reaso n for Exam Type 2 diabetes mellitus without complication, without long- Reason for Exam Vitamin D deficiency Performed By: #### C BC, CMP, LIPID #### [facility] [address] [place], [place] [id number] [place] Albumin [Mass/volume] in Ser um or Plasma by Bromocresol green (BCG) dye binding methoOrdered By: Ajit Pettit on 05-16-2024 Albumin BCG dye [Mass/Vol] 4.2 g/dL 3.5-5.7 [facility] Alkaline phosphatase [Enzyma tic activity/volume] in Serum or PlasmaOrdered By: Ajit Pettit on 05-16-2024 ALP [Catalytic activity/Vol] 62 U/L Normal 34-104 [facility] Comment on above: Order Comment: Reaso n for Exam Type 2 diabetes mellitus without complication, without long- Reason for Exam Vitamin D deficiency Performed By: #### C BC, CMP, LIPID #### [facility] [address] [place] [address] [place] Aspartate aminotransferase [ Enzymatic activity/volume] in Serum or PlasmaOrdered By: Ajit Pettit on 05-16-2024 AST [Catalytic activity/Vol] 11 U/L Low 13-39 [facility] Comment on above: Order Comment: Reaso n for Exam Type 2 diabetes mellitus without complication, without long- Reason for Exam Vitamin D deficiency Performed By: #### C BC, CMP, LIPID #### [facility] [address] Automated basophil %Ordered By: Ajit Pettit on 05-16-2024 Basophils/100 WBC (Bld) 0.6 % Normal . [facility] Comment on above: Order Comment: Reaso n for Exam Type 2 diabetes mellitus without complication, without long- Performed By: #### C BC, CMP, LIPID #### [facility] [address] Automated basophil countOrde red By: Ajit Pettit on 05-16-2024 Basophils (Bld) [#/Vol] 0.1 10*3/uL Normal 0.0-0.2 [facility] Comment on above: Order Comment: Reaso n for Exam Type 2 diabetes mellitus without complication, without long- Result Comment: PERF ORMED BY: [place] [address] PATHOLOGIST HORIZONTAL DRILL OPERATOR RIDGE HUERTA M.D. Performed By: #### C BC, CMP, LIPID #### [address] Automated blood monocyte cou ntOrdered By: Ajit Pettit on 05-16-2024 Monocytes (Bld) [#/Vol] 0.7 10*3/uL Normal 0.0-0.8 [facility] Comment on above: Order Comment: Reaso n for Exam Type 2 diabetes mellitus without complication, without long- Performed By: #### C BC, CMP, LIPID #### [facility] [address] Automated eosinophil %Ordere d By: Ajit Millanc on 05-16-2024 Eosinophils/100 WBC (Bld) 0.4 % Normal . [facility] Comment on above: Order Comment: Reaso n for Exam Type 2 diabetes mellitus without complication, without long- Performed By: #### C BC, CMP, LIPID #### [facility] [address] Automated eosinophil countOr dered By: Ajit Pettit on 05-16-2024 Eosinophils (Bld) [#/Vol] 0.1 10*3/uL Normal 0.0-0.45 [facility] Comment on above: Order Comment: Reaso n for Exam Type 2 diabetes mellitus without complication, without long- Performed By: #### C BC, CMP, LIPID #### [facility] [address] Automated monocyte %Ordered By: Ajit Pettit on 05-16-2024 Monocytes/100 WBC (Bld) 4.4 % Normal . [facility] Comment on above: Order Comment: Reaso n for Exam Type 2 diabetes mellitus without complication, without long- Performed By: #### C BC, CMP, LIPID #### [facility] [address] Automated neutrophil %Ordere d By: Ajit Millanc on 05-16-2024 Neutrophils/100 WBC (Bld) 61.6 % Normal . [facility] Comment on above: Order Comment: Reaso n for Exam Type 2 diabetes mellitus without complication, without long- Performed By: #### C BC, CMP, LIPID #### [facility] [address] Bilirubin.total [Mass/volume ] in Serum or PlasmaOrdered By: Ajit Pettit on 05-16-2024 Bilirubin [Mass/Vol] 0.3 mg/dL Normal 0.3-1.0 [facility] Comment on above: Order Comment: Reaso n for Exam Type 2 diabetes mellitus without complication, without long- Reason for Exam Vitamin D deficiency Performed By: #### C BC, CMP, LIPID #### [facility] [address] [place] [address] [place] Calcium [Mass/volume] in Ser um or PlasmaOrdered By: Ajit Pettit on 05-16-2024 Calcium [Mass/Vol] 9.0 mg/dL Normal 8.6-10.3 [facility] Comment on above: Order Comment: Reaso n for Exam Type 2 diabetes mellitus without complication, without long- Reason for Exam Vitamin D deficiency Performed By: #### C BC, CMP, LIPID #### [facility] [address] [place] [id number] [place] Carbon dioxide, total [Moles /volume] in Serum or PlasmaOrdered By: Ajit Pettit on 05-16-2024 CO2 [Moles/Vol] 26.0 mmol/L Normal 21.0-31.0 [facility] Comment on above: Order Comment: Reaso n for Exam Type 2 diabetes mellitus without complication, without long- Reason for Exam Vitamin D deficiency Performed By: #### C BC, CMP, LIPID #### [facility] [address] [place] [id number] [place] Chloride [Moles/volume] in S alissa or PlasmaOrdered By: Ajit Pettit on 05-16-2024 Chloride [Moles/Vol] 96 mmol/L Low 98-107 [facility] Comment on above: Order Comment: Reaso n for Exam Type 2 diabetes mellitus without complication, without long- Reason for Exam Vitamin D deficiency Performed By: #### C BC, CMP, LIPID #### [facility] [address] [place] [id number] [place] Cholesterol [Mass/volume] in Serum or PlasmaOrdered By: Ajit Pettit on 05-16-2024 Cholesterol [Mass/Vol] 237 mg/dL High 140-200 [facility] [place] Comment on above: Chol less than 200 [...] Performed By: #### C BC, CMP, LIPID #### [facility] [address] [place] [address] [place] Cholesterol in LDL Calc [Mas s/Vol]Ordered By: Ajit Pettit on 05-16-2024 Cholesterol in LDL [Mass/Vol] 130 mg/dL High 0-100 [facility] Comment on above: LDL ATP III CLASSIFI CATIONLDL less than 100 mg/dL OptimalLDL 100-129 mg/dL Near or above optimalLDL 130-159 mg/dL Borderline highLDL 160-189 mg/dL HighLDL greater than 189 mg/dL Very high Cholesterol in VLDL Calc [Ma ss/Vol]Ordered By: Ajit Pettit on 05-16-2024 Cholesterol in VLDL [Mass/Vol] 64 mg/dL [facility] Complete Blood Count Auto Di ffon 05-16-2024 Mean Corpuscular HGB Conc 34.3 g/dL Normal 32.0-35.0 [facility] Comment on above: Order Comment: Reaso n for Exam Type 2 diabetes mellitus without complication, without long- Performed By: #### C BC, CMP, LIPID #### [facility] [address] NRBC% 0.1 /100{WBC} Normal 0-0.5 [facility] Comment on above: Order Comment: Reaso n for Exam Type 2 diabetes mellitus without complication, without long- Performed By: #### C BC, CMP, LIPID #### [facility] [address] Comprehensive Metabolic Pane rosa 05-16-2024 Albumin [Mass/Vol] 4.2 g/dL Normal 3.5-5.7 [facility] Comment on above: Order Comment: Reaso n for Exam Type 2 diabetes mellitus without complication, without long- Reason for Exam Vitamin D deficiency Performed By: #### C BC, CMP, LIPID #### [facility] [address] [place] [id number] [place] GFR/1.73 sq M.predicted MDRD (S/P/Bld) [Vol rate/Area] mL/min/{1.73_m2} Normal [facility] Comment on above: Order Comment: Reaso n for Exam Type 2 diabetes mellitus without complication, without long- Reason for Exam Vitamin D deficiency Performed By: #### C BC, CMP, LIPID #### [facility] [address] [place] [id number] [place] Creatinine [Mass/volume] in Serum or PlasmaOrdered By: Ajit Pettit on 05-16-2024 Creatinine [Mass/Vol] 0.47 mg/dL Low 0.60-1.20 [facility] Comment on above: Order Comment: Reaso n for Exam Type 2 diabetes mellitus without complication, without long- Reason for Exam Vitamin D deficiency Performed By: #### C BC, CMP, LIPID #### [facility] [address] [place] [id number] [place] Erythrocyte distribution wid th [Ratio] by Automated countOrdered By: Ajit Pettit on 05-16-2024 Erythrocyte distribution width (RBC) [Ratio] 13.3 % Normal 11.9-15.3 [facility] Comment on above: Order Comment: Reaso n for Exam Type 2 diabetes mellitus without complication, without long- Performed By: #### C BC, CMP, LIPID #### [facility] [address] [place] [id number] [facility] Erythrocytes [#/volume] in B lood by Automated countOrdered By: Ajit Pettit on 05-16-2024 RBC (Bld) [#/Vol] 4.64 10*6/uL Normal 3.60-5.00 [facility] Comment on above: Order Comment: Reaso n for Exam Type 2 diabetes mellitus without complication, without long- Performed By: #### C BC, CMP, LIPID #### [facility] [address] [place] [id number] [place] Glucose [Mass/volume] in Ser um or PlasmaOrdered By: Ajit Pettit on 05-16-2024 Glucose [Mass/Vol] 74 mg/dL Normal 70-100 [facility] Comment on above: ADA recommended refe rence rangeRandom Glucose Reference Range is dependent on time and content of last meal. Glucose of more than 200 mg/dL in a nonstressed, ambulatory subject supports the diagnosis of Diabetes Mellitus. Order Comment: Reaso n for Exam Type 2 diabetes mellitus without complication, without long- Reason for Exam Vitamin D deficiency Result Comment: Herod om Glucose Reference Range is dependent on time and content of last meal. Glucose of more than 200 mg/dL in a nonstressed, ambulatory subject supports the diagnosis of Diabetes Mellitus. ADA recommended reference range Performed By: #### C BC, CMP, LIPID #### [facility] [address] [place] [id number] [facility] Glucose mean value [Mass/vol ume] in Blood Estimated from glycated hemoglobinOrdered By: Ajit Pettit on 05-16-2024 Average glucose Estimated from glycated hemoglobin (Bld) [Mass/Vol] 137 mg/dL [facility] Hematocrit [Volume Fraction] of Blood by Automated countOrdered By: Ajit Pettit on 05-16-2024 Hematocrit (Bld) [Volume fraction] 41.1 % Normal 34.0-46.4 [facility] Comment on above: Order Comment: Reaso n for Exam Type 2 diabetes mellitus without complication, without long- Performed By: #### C BC, CMP, LIPID #### [facility] [address] Hemoglobin A1c percentageOrd ered By: Ajit Pettit on 05-16-2024 HbA1c (Bld) [Mass fraction] 6.4 % High 4.3-5.6 [facility] Comment on above: Increased risk for d iabetes: 5.7 - 6.4diabetes: >6.4glycemic control for adults with diabetes: <7.0 Order Comment: Reaso n for Exam Type 2 diabetes mellitus without complication, without long- Result Comment: Incr eased risk for diabetes: 5.7 - 6.4 diabetes: >6.4 glycemic control for adults with diabetes: <7.0 Performed By: #### C BC, CMP, LIPID #### [facility] [address] [place] [address] [place] Hemoglobin [Mass/volume] in BloodOrdered By: Ajit Pettit on 05-16-2024 Hemoglobin (Bld) [Mass/Vol] 14.1 g/dL Normal 11.8-15.4 [facility] Comment on above: Order Comment: Reaso n for Exam Type 2 diabetes mellitus without complication, without long- Performed By: #### C BC, CMP, LIPID #### [facility] [address] [place] [address] [place] Leukocytes [#/volume] correc cherie for nucleated erythrocytes in Blood by Automated counOrdered By: Ajit Pettit on 05-16-2024 WBC corrected for nucl RBC Auto (Bld) [#/Vol] 15.0 10*3/uL High 3.8-11.6 [facility] Leukocytes [#/volume] in Blo od by Automated countOrdered By: Ajit Pettit on 05-16-2024 WBC (Bld) [#/Vol] 15.0 10*3/uL High 3.8-11.6 [facility] Comment on above: Order Comment: Reaso n for Exam Type 2 diabetes mellitus without complication, without long- Performed By: #### C BC, CMP, LIPID #### [facility] [address] [place] [id number] [facility] Lipid Panelon 05-16-2024 LDL Cholesterol,Calculated 130 mg/dL High 0-100 [facility] Comment on above: Order [...] Performed By: #### C BC, CMP, LIPID #### [facility] [address] Triglyceride w/Reflex 321 mg/dL High 0-149 [facility] Comment on above: Order [...] Performed By: #### C BC, CMP, LIPID #### [facility] [address] VLDL CHOLESTEROL 64 mg/dL Normal [facility] Comment on above: Order Comment: Reaso n for Exam Type 2 diabetes mellitus without complication, without long- Reason for Exam Vitamin D deficiency Performed By: #### C BC, CMP, LIPID #### [facility] [address] Lymphocytes [#/volume] in Bl ood by Automated countOrdered By: Ajit Pettit on 05-16-2024 Lymphocytes (Bld) [#/Vol] 5.0 10*3/uL High 1.00-4.8 [facility] Comment on above: Order Comment: Reaso n for Exam Type 2 diabetes mellitus without complication, without long- Performed By: #### C BC, CMP, LIPID #### [facility] [address] Lymphocytes/100 leukocytes i n Blood by Automated countOrdered By: Ajit Pettit on 05-16-2024 Lymphocytes/100 WBC (Bld) 33.0 % Normal . [facility] Comment on above: Order Comment: Reaso n for Exam Type 2 diabetes mellitus without complication, without long- Performed By: #### C BC, CMP, LIPID #### [facility] [address] MCH [Entitic mass] by Automa cherie countOrdered By: Ajit Pettit on 05-16-2024 MCH (RBC) [Entitic mass] 30.3 pg Normal 24.7-34.3 [facility] Comment on above: Order Comment: Reaso n for Exam Type 2 diabetes mellitus without complication, without long- Performed By: #### C BC, CMP, LIPID #### [facility] [address] [place] [address] MCHC Auto (RBC) [Mass/Vol]Or dered By: Ajit Pettit on 05-16-2024 MCHC (RBC) [Mass/Vol] 34.3 g/dL 32.0-35.0 [facility] MCV [Entitic volume] by Auto mated countOrdered By: Ajit Pettit on 05-16-2024 MCV (RBC) [Entitic vol] 88.4 fL Normal 80-100 [facility] Comment on above: Order Comment: Reaso n for Exam Type 2 diabetes mellitus without complication, without long- Performed By: #### C BC, CMP, LIPID #### [facility] [address] [place] [address] [place] Neutrophils [#/volume] in Bl ood by Automated countOrdered By: Ajit Pettit on 05-16-2024 Neutrophils (Bld) [#/Vol] 9.3 10*3/uL High 1.8-7.7 [facility] Comment on above: Order Comment: Reaso n for Exam Type 2 diabetes mellitus without complication, without long- Performed By: #### C BC, CMP, LIPID #### [facility] [address] No Panel InformationOrdered By: Ajit Pettit on 05-16-2024 Estimated GFR (CKD-EPI) > 60.0 mL/Min [facility] Creatinine Clearance (Chem N/A [facility] Nucleated erythrocytes [Pres ence] in Blood by Automated countOrdered By: Ajit Pettit on 05-16-2024 Nucleated RBC Auto Ql (Bld) 0.1 /100{WBC} 0-0.5 [facility] Platelet mean volume [Entiti c volume] in Blood by Automated countOrdered By: Ajit Pettit on 05-16-2024 Platelet mean volume (Bld) [Entitic vol] 7.9 fL Normal 6.3-10.7 [facility] Comment on above: Order Comment: Reaso n for Exam Type 2 diabetes mellitus without complication, without long- Performed By: #### C BC, CMP, LIPID #### [facility] [address] [place] [address] [place] Platelets [#/volume] in Bloo d by Automated countOrdered By: Ajit Pettit on 05-16-2024 Platelets (Bld) [#/Vol] 400 10*3/uL Normal 150-450 [facility] Comment on above: Order Comment: Reaso n for Exam Type 2 diabetes mellitus without complication, without long- Performed By: #### C BC, CMP, LIPID #### [facility] [address] [place] [address] [place] Potassium [Moles/volume] in Serum or PlasmaOrdered By: Ajit Pettit on 05-16-2024 Potassium [Moles/Vol] 4.1 mmol/L Normal 3.5-5.1 [facility] Comment on above: Order Comment: Reaso n for Exam Type 2 diabetes mellitus without complication, without long- Reason for Exam Vitamin D deficiency Performed By: #### C BC, CMP, LIPID #### [facility] [address] [place] [address] [place] Protein [Mass/volume] in Ser um or PlasmaOrdered By: Ajit Pettit on 05-16-2024 Protein [Mass/Vol] 6.7 g/dL Normal 6.4-8.9 [facility] Comment on above: Order Comment: Reaso n for Exam Type 2 diabetes mellitus without complication, without long- Reason for Exam Vitamin D deficiency Performed By: #### C BC, CMP, LIPID #### [facility] [address] Serum globulin measurement b y calculation (mass/volume)Ordered By: Ajit Pettit on 05-16-2024 Globulin (S) [Mass/Vol] 2.5 g/dL Normal [facility] Comment on above: Order Comment: Reaso n for Exam Type 2 diabetes mellitus without complication, without long- Reason for Exam Vitamin D deficiency Performed By: #### C BC, CMP, LIPID #### [facility] [address] Serum or plasma albumin/glob ulin mass ratioOrdered By: Ajit Pettit on 05-16-2024 Albumin/Globulin [Mass ratio] 1.7 {ratio} Normal [facility] Comment on above: Order Comment: Reaso n for Exam Type 2 diabetes mellitus without complication, without long- Reason for Exam Vitamin D deficiency Performed By: #### C BC, CMP, LIPID #### [facility] [address] [place] [id number] [facility] Serum or plasma anion gap de terminationOrdered By: Ajit Pettit on 05-16-2024 Anion gap [Moles/Vol] 13.1 mmol/L Normal 6.0-15.0 [facility] Comment on above: Order Comment: Reaso n for Exam Type 2 diabetes mellitus without complication, without long- Reason for Exam Vitamin D deficiency Performed By: #### C BC, CMP, LIPID #### [facility] [address] [place] [id number] [facility] Serum or plasma high density lipoprotein (HDL) cholesterol measurementOrdered By: Ajit Pettit on 05-16-2024 Cholesterol in HDL [Mass/Vol] 43 mg/dL Normal 23-92 [facility] Comment on above: HDL CHOL [...] Performed By: #### C BC, CMP, LIPID #### [facility] [address] Serum or plasma total choles terol/high density lipoprotein (HDL) cholesterol mass ratOrdered By: Ajit Pettit on 05-16-2024 Cholesterol.total/Suellen sterol in HDL [Mass ratio] 5.5 {ratio} Normal <5.0 [facility] Comment on above: Order Comment: Reaso n for Exam Type 2 diabetes mellitus without complication, without long- Reason for Exam Vitamin D deficiency Performed By: #### C BC, CMP, LIPID #### [facility] [address] [place] [address] [place] Sodium [Moles/volume] in Ser um or PlasmaOrdered By: Ajit Pettit on 05-16-2024 Sodium [Moles/Vol] 131 mmol/L Low 136-145 [facility] Comment on above: Order Comment: Reaso n for Exam Type 2 diabetes mellitus without complication, without long- Reason for Exam Vitamin D deficiency Performed By: #### C BC, CMP, LIPID #### [facility] [address] [place] [address] Thyroid Stim Hormone w/Rflxo n 05-16-2024 Thyroid Stim Hormone w/Rflx 1.69 u[iU]/mL Normal 0.45-5.33 [facility] Comment on above: Order Comment: Reaso n for Exam Type 2 diabetes mellitus without complication, without long- Reason for Exam Vitamin D deficiency Performed By: #### C BC, CMP, LIPID #### [facility] [address] [place] [address] [place] Thyrotropin [Units/volume] i n Serum or PlasmaOrdered By: Ajit Pettit on 05-16-2024 TSH Qn 1.69 m[IU]/L 0.45-5.33 [facility] Triglyceride [Mass/volume] i n Serum or PlasmaOrdered By: Ajit Pettit on 05-16-2024 Triglyceride [Mass/Vol] 321 mg/dL High 0-149 [facility] [facility] Comment on above: TRIG ATP III CLASSIF ICATIONTRIG less than 150 mg/dL NormalTRIG 150-199 mg/dL Borderline highTRIG 200-500 mg/dL High TRIG greater than 500 mg/dL Very highStandard traceable to the Center for Disease Conrtrol and Prevention (CDC) test method. Urea nitrogen [Mass/volume] in Serum or PlasmaOrdered By: Ajit Pettit on 05-16-2024 Urea nitrogen [Mass/Vol] 5 mg/dL Low 7-25 [facility] Comment on above: Order Comment: Reaso n for Exam Type 2 diabetes mellitus without complication, without long- Reason for Exam Vitamin D deficiency Performed By: #### C BC, CMP, LIPID #### [facility] [address] [place] [address] [facility] Vitamin D 25 Hydroxy Totalon 05-16-2024 Vitamin D 25 Hydroxy Total 46.2 ng/mL Normal 30-100 [facility] Comment on above: Order [...] practice guideline. JCEM. 2010; 96(7):1911-30. PERFORMED BY: [facility] [address] [place] [address] PATHOLOGIST HORIZONTAL DRILL OPERATOR RIDGE HUERTA M.D. Performed By: #### C BC, CMP, LIPID #### [facility] [address] [place] [address] [facility] Vitamin D+Metabolites [Mass/ volume] in Serum or PlasmaOrdered By: Ajit Pettit on 05-16-2024 Vitamin D+Metabolites [Mass/Vol] 46.2 ng/mL 30-100 [facility] Comment on above: VITAMIN D STATUS 25( [place])VITAMIN D RANGE (ng/mL) Deficient <20 Insufficient 20 to <30Sufficient 30 to 100Reference: Jovanni MF,Dominique ARORA, Gillian NINA, et al. Evaluation,treatment, and prevention of vitamin D deficiency; an Endocrine Society clinical practice guideline. JCEM. 2010; 96(7):1911-30. Capillary blood glucose ashwini urement by glucometer (mass/volume)Ordered By: Abi Sunshine on 03-16-2024 Glucose [Mass/Vol] 140 mg/dL Normal [facility] Comment on above: Random Glucose Refer ence Range is dependent on time and content of last meal. Glucose of more than 200 mg/dL in a nonstressed, ambulatory subject supports the diagnosis of Diabetes Mellitus. Result Comment: Herod om Glucose Reference Range is dependent on time and content of last meal. Glucose of more than 200 mg/dL in a nonstressed, ambulatory subject supports the diagnosis of Diabetes Mellitus. PERFORMED BY: [address] [place] [address] PATHOLOGIST HORIZONTAL DRILL OPERATOR RIDGE HUERTA M.D. Performed By: #### G LULS #### Point of Care testing , [facility] 03-16-2024 L Specimen: [id number] Received: 03/16/24 Status: BLUE Neal Num: [id number] Spec Type: Surgical Subm Dr: Abi Sunshine DO Tissues: A Colon Biopsy (RT RANDOM COLON BX) B Colon Biopsy (RANDOM LT) C Colon Biopsy (TRANSV POLYPS) D Colon Biopsy (RECTAL POLYP) Procedures: HE/8, Gross/Micro L4/4 Age/ Patient Sex Location Account Attending Physician Rachel Mcgarry 44/F [id number] Abi Sunshine DO SPEC NUM: [id number] RECD: 03/16/24 STATUS: BLUE NEAL NUM: [id number] JOSEPH: 03/16/24- SUBM DR: Abi Sunshine DO ENTERED: 03/16/[address]: SPEC TYPE: Surgical DEPT: S ORDERED: HE/8, Gross/Micro L4/4 ORDERED: , Gross/Micro L4/4 Pathological [...] -Serrated hyperplastic polyp in both fragments Specimen: [id number] Received: 03/16/24 Status: BLUE Neal Num: [id number] Spec Type: Surgical Subm Dr: Abi Sunshine DO Tissues: A Colon Biopsy (RT RANDOM COLON BX) B Colon Biopsy (RANDOM LT) C Colon Biopsy (TRANSV POLYPS) D Colon Biopsy (RECTAL POLYP) Procedures: ÁNGELDagoberto, Gross/Micro L4/4 Patient: Rachel Mcgarry [id number] (Continued) Specimen: [id number] Received: 03/16/24 (Continued) Signed (signature on file) Philomena Grimm MD 03/18/24 1111 Specimen: [id number] Received: 03/16/24 Status: BLUE Neal Num: [id number] Spec Type: Surgical Subm Dr: Abi Sunshine, DO Tissues: A Colon Biopsy (RT RANDOM COLON BX) B Colon Biopsy (RANDOM LT) C Colon Biopsy (TRANSV POLYPS) D Colon Biopsy (RECTAL POLYP) Procedures: HE/8, Gross/Micro L4/4 Patient: Rachel Mcgarry [id number] (Continued) Specimen: [id number] Received: 03/16/24 (Continued) Clinical Information Screening, diarrhea. [...] cm, entirely submitted in D1. CPT Codes 88778U6 Specimen: [id number] Received: 03/16/24 Status: BLUE Neal Num: [id number] Spec Type: Surgical Subm Dr: Abi Sunshine DO Tissues: A Colon Biopsy (RT RANDOM COLON BX) B Colon Biopsy (RANDOM LT) C Colon Biopsy (TRANSV POLYPS) D Colon Biopsy (RECTAL POLYP) Procedures: ÁNGEL/Dagoberto, Gross/Micro L4/4 Patient: Rachel Mcgarry [id number] (Continued) Signed (signature on file) Gerson[facility]Moses Grimm MD 03/18/24 1111 Normal [facility] XR lumbar spine AP/LAT/FLX/E XTon 03-02-2024 XR lumbar spine AP/LAT/FLX/[place] [address] XRay Report Signed Patient: Rachel Mcgarry MR#: [id number] 1 : 1980 Acct:[id number] Age/Sex: 44 / F ADM Date: 03/02/24 Loc: XD Room: Type: [facility] Attending Dr: Kyler Miramontes MD Copies [...] PRIOR STUDY. Impression dictated by: Andrés Yeboah Jr. D.OPanchito03/02/2024 2:52 PM Dictation Location: [place] [address] Transcribed By: ROSA MARIA 03/02/24 1452 Dictated By: Andrés Yeboah Jr, DO 03/02/24 1444 Signed By: 03/02/24 1452 Luisito [facility] US breast RT limitedon 02-08 US breast RT limited [facility] [place] [address] [place], [place] [id number] Ultrasound Report Signed Patient: Rachel Mcgarry MR#: [id number] 1 : 1980 Acct:[id number] Age/Sex: 44 / F ADM Date: 02/09/24 Loc: [facility] Room: Type: [facility] Attending Dr: Ajit DEJESUS Ordering Provider: [...] Dar Messina M.D.02/09/2024 9:33 AM Dictation Location: [facility] Tech: Janet Krause Transcribed By: ROSA MARIA 02/09/24 0933 Dictated By: Dar Messina II, MD 02/09/24 0929 Signed By: 02/09/24 0933 Normal [facility] MM screening mammo BI w/CADo n 02-04-2024 MM screening mammo BI w/CAD [facility] Main [place] [address] [place], [place] [id number] Mammography Report Signed Patient: Rachel Mcgarry MR#: [id number] 1 : 1980 Acct:[id number] Age/Sex: 44 / F ADM Date: 02/04/24 Loc: [place] Room: Type: [facility] Attending Dr: Ajit DEJESUS Copies to: [...] Eda Yañez M.D.02/04/2024 2:28 PM Dictation Location: [facility] Transcribed By: [facility] 02/04/24 1428 Dictated By: Eda Yañez MD 02/04/24 1418 Signed By: 02/04/24 1428 Normal [facility] Alanine aminotransferase [En zymatic activity/volume] in Serum or PlasmaOrdered By: Ajit Pettit on 01-18-2024 ALT [Catalytic activity/Vol] 8 U/L 7-52 [facility] Albumin [Mass/volume] in Ser um or Plasma by Bromocresol green (BCG) dye binding methoOrdered By: Ajit Pettit on 01-18-2024 Albumin BCG dye [Mass/Vol] 4.1 g/dL 3.5-5.7 [facility] Alkaline phosphatase [Enzyma tic activity/volume] in Serum or PlasmaOrdered By: Ajit Pettit on 01-18-2024 ALP [Catalytic activity/Vol] 58 U/L 34-104 [facility] Aspartate aminotransferase [ Enzymatic activity/volume] in Serum or PlasmaOrdered By: Ajit Millanc on 01-18-2024 AST [Catalytic activity/Vol] 9 U/L Low 13-39 [facility] Basophils Auto (Bld) [#/Vol] Ordered By: Ajit Pettit on 01-18-2024 Basophils (Bld) [#/Vol] 0.2 10*3/uL 0.0-0.2 [facility] Basophils/100 WBC Auto (Bld) Ordered By: Ajit Millanc on 01-18-2024 Basophils/100 WBC (Bld) 1.2 % . [facility] Bilirubin.total [Mass/volume ] in Serum or PlasmaOrdered By: Ajit Pettit on 01-18-2024 Bilirubin [Mass/Vol] 0.4 mg/dL 0.3-1.0 [facility] Calcium [Mass/volume] in Ser um or PlasmaOrdered By: Ajit Pettit on 01-18-2024 Calcium [Mass/Vol] 9.5 mg/dL 8.6-10.3 [facility] Carbon dioxide, total [Moles /volume] in Serum or PlasmaOrdered By: Ajit Millanc on 01-18-2024 CO2 [Moles/Vol] 22.0 mmol/L 21.0-31.0 [facility] Chloride [Moles/volume] in S alissa or PlasmaOrdered By: Ajit Pettit on 01-18-2024 Chloride [Moles/Vol] 103 mmol/L 98-107 [facility] Cholesterol [Mass/volume] in Serum or PlasmaOrdered By: Ajit Pettit on 01-18-2024 Cholesterol [Mass/Vol] 188 mg/dL 140-200 [facility] Comment on above: Chol less than 200 m g/dl low riskChol 201-239 mg/dl borderline riskChol 240 mg/dl and greater high risk Cholesterol in LDL Calc [Mas s/Vol]Ordered By: Ajit Pettit on 01-18-2024 Cholesterol in LDL [Mass/Vol] TNP [facility] Comment on above: Test not performed Cholesterol in LDL [Mass/vol ume] in Serum or PlasmaOrdered By: Ajit Pettit on 01-18-2024 Cholesterol in LDL [Mass/Vol] 97 mg/dL 0-100 [facility] Comment on above: LDL ATP III CLASSIFI CATIONLDL less than 100 mg/dL OptimalLDL 100-129 mg/dL Near or above optimalLDL 130-159 mg/dL Borderline highLDL 160-189 mg/dL HighLDL greater than 189 mg/dL Very high Cholesterol in VLDL Calc [Ma ss/Vol]Ordered By: Ajit Pettit on 01-18-2024 Cholesterol in VLDL [Mass/Vol] 88 mg/dL [facility] Creatinine [Mass/volume] in Serum or PlasmaOrdered By: Ajit Pettit on 01-18-2024 Creatinine [Mass/Vol] 0.42 mg/dL Low 0.60-1.20 [facility] Eosinophils Auto (Bld) [#/Vo l]Ordered By: Ajit Pettit on 01-18-2024 Eosinophils (Bld) [#/Vol] 0.1 10*3/uL 0.0-0.45 [facility] Eosinophils/100 WBC Auto (Bl d)Ordered By: Ajit Pettit on 01-18-2024 Eosinophils/100 WBC (Bld) 0.9 % . [facility] Erythrocyte distribution wid th Auto (RBC) [Ratio]Ordered By: Ajit Pettit on 01-18-2024 Erythrocyte distribution width (RBC) [Ratio] 13.4 % 11.9-15.3 [facility] Globulin Calc (S) [Mass/Vol] Ordered By: Ajit Pettit on 01-18-2024 Globulin (S) [Mass/Vol] 2.5 g/dL [facility] Glucose [Mass/volume] in Ser um or PlasmaOrdered By: Ajit Pettit on 01-18-2024 Glucose [Mass/Vol] 107 mg/dL High 70-100 [facility] Comment on above: ADA recommended refe rence rangeRandom Glucose Reference Range is dependent on time and content of last meal. Glucose of more than 200 mg/dL in a nonstressed, ambulatory subject supports the diagnosis of Diabetes Mellitus. Hematocrit Auto (Bld) [Volum e fraction]Ordered By: Ajit Pettit on 01-18-2024 Hematocrit (Bld) [Volume fraction] 40.8 % 34.0-46.4 [facility] Hemoglobin [Mass/volume] in BloodOrdered By: Ajit Pettit on 01-18-2024 Hemoglobin (Bld) [Mass/Vol] 13.5 g/dL 11.8-15.4 [facility] Iron [Mass/volume] in Serum or PlasmaOrdered By: Ajit Pettit on 01-18-2024 Iron [Mass/Vol] 89 ug/dL 50-212 [facility] Iron binding capacity [Mass/ volume] in Serum or PlasmaOrdered By: Ajit Pettit on 01-18-2024 Iron binding capacity [Mass/Vol] 374 ug/dL 255-450 [facility] Iron saturation [Mass Fracti on] in Serum or PlasmaOrdered By: Ajit Pettit on 01-18-2024 Iron saturation [Mass fraction] 23.8 % 20-50 [facility] Leukocytes [#/volume] correc cherie for nucleated erythrocytes in Blood by Automated counOrdered By: Ajit Pettit on 01-18-2024 WBC corrected for nucl RBC Auto (Bld) [#/Vol] 12.4 10*3/uL High 3.8-11.6 [facility] Lymphocytes Auto (Bld) [#/Vo l]Ordered By: Ajit Pettit on 01-18-2024 Lymphocytes (Bld) [#/Vol] 3.7 10*3/uL 1.00-4.8 [facility] Lymphocytes/100 WBC Auto (Bl d)Ordered By: Ajit Pettit on 01-18-2024 Lymphocytes/100 WBC (Bld) 29.9 % . [facility] MCH Auto (RBC) [Entitic mass ]Ordered By: Ajit Pettit on 01-18-2024 MCH (RBC) [Entitic mass] 28.9 pg 24.7-34.3 [facility] MCHC Auto (RBC) [Mass/Vol]Or dered By: Ajit Polosic on 01-18-2024 MCHC (RBC) [Mass/Vol] 33.1 g/dL 32.0-35.0 [facility] MCV Auto (RBC) [Entitic vol] Ordered By: Ajit Pettit on 01-18-2024 MCV (RBC) [Entitic vol] 87.3 fL 80-100 [facility] Microalbumin [Mass/volume] i n UrineOrdered By: Ajit Pettit on 01-18-2024 Albumin DL <= 20 mg/L (U) [Mass/Vol] 0.8 mg/dL 0.0-1.8 [facility] Monocytes Auto (Bld) [#/Vol] Ordered By: Ajit Millanc on 01-18-2024 Monocytes (Bld) [#/Vol] 0.9 10*3/uL High 0.0-0.8 [facility] Monocytes/100 WBC Auto (Bld) Ordered By: Ajit Pettit on 01-18-2024 Monocytes/100 WBC (Bld) 7.1 % . [facility] Neutrophils Auto (Bld) [#/Vo l]Ordered By: Ajit Millanc on 01-18-2024 Neutrophils (Bld) [#/Vol] 7.6 10*3/uL 1.8-7.7 [facility] Neutrophils/100 WBC Auto (Bl d)Ordered By: Aijt Millanc on 01-18-2024 Neutrophils/100 WBC (Bld) 60.9 % . [facility] No Panel InformationOrdered By: Ajit Pettit on 01-18-2024 Estimated GFR (CKD-EPI) > 60.0 mL/Min [facility] Creatinine Clearance (Chem N/A [facility] Nucleated erythrocytes [Pres ence] in Blood by Automated countOrdered By: Ajit Pettit on 01-18-2024 Nucleated RBC Auto Ql (Bld) 0.2 /100{WBC} 0-0.5 [facility] Platelet mean volume Auto (B ld) [Entitic vol]Ordered By: Ajit Pettit on 01-18-2024 Platelet mean volume (Bld) [Entitic vol] 8.8 fL 6.3-10.7 [facility] Platelets Auto (Bld) [#/Vol] Ordered By: Ajit Pettit on 01-18-2024 Platelets (Bld) [#/Vol] 275 10*3/uL 150-450 [facility] Potassium [Moles/volume] in Serum or PlasmaOrdered By: Ajit Pettit on 01-18-2024 Potassium [Moles/Vol] 4.3 mmol/L 3.5-5.1 [facility] Protein [Mass/volume] in Ser um or PlasmaOrdered By: Ajit Pettit on 01-18-2024 Protein [Mass/Vol] 6.6 g/dL 6.4-8.9 [facility] RBC Auto (Bld) [#/Vol]Ordere d By: Ajit Pettit on 01-18-2024 RBC (Bld) [#/Vol] 4.67 10*6/uL 3.60-5.00 [facility] Serum or plasma albumin/glob ulin mass ratioOrdered By: Ajit Pettit on 01-18-2024 Albumin/Globulin [Mass ratio] 1.6 {ratio} [facility] Serum or plasma anion gap de terminationOrdered By: Ajit Pettit on 01-18-2024 Anion gap [Moles/Vol] 15.3 mmol/L High 6.0-15.0 [facility] Serum or plasma high density lipoprotein (HDL) cholesterol measurementOrdered By: Ajit Pettit on 01-18-2024 Cholesterol in HDL [Mass/Vol] 37 mg/dL 23-92 [facility] Comment on above: HDL CHOL ATP-III CLA SSIFICATION Cardiovascular RiskHDL > or equal to 60 mg/dL LOWHDL < 40 mg/dL HIGH Serum or plasma total choles terol/high density lipoprotein (HDL) cholesterol mass ratOrdered By: Ajit Pettit on 01-18-2024 Cholesterol.total/Suellen sterol in HDL [Mass ratio] 5.1 {ratio} <5.0 [facility] Sodium [Moles/volume] in Ser um or PlasmaOrdered By: Ajit Pettit on 01-18-2024 Sodium [Moles/Vol] 136 mmol/L 136-145 [facility] Transferrin [Mass/volume] in Serum or PlasmaOrdered By: Ajit Pettit on 01-18-2024 Transferrin [Mass/Vol] 267 mg/dL 203-362 [facility] Triglyceride [Mass/volume] i n Serum or PlasmaOrdered By: Ajit Pettit on 01-18-2024 Triglyceride [Mass/Vol] 441 mg/dL High 0-149 [facility] Comment on above: If the [...] on 01-18-2024 Urea nitrogen [Mass/Vol] 10 mg/dL 7-25 [facility] WBC Auto (Bld) [#/Vol]Ordere d By: Ajit Pettit on 01-18-2024 WBC (Bld) [#/Vol] 12.4 10*3/uL High 3.8-11.6 [facility] Activated partial thrombopla stin time (aPTT) in platelet poor plasma by coagulation aOrdered By: Diego Noble on 10-16-2023 aPTT Coag (PPP) [Time] 28.2 s 25.1-36.5 [facility] Comment on above: A hematocrit value g reater than 55% may lead to inaccurate results in coagulation testing. Patients having hematocrit values >55% require a special collection tube for coagulation studies. Please contact the laboratory at [phone] for redraw instructions. Alanine aminotransferase [En zymatic activity/volume] in Serum or PlasmaOrdered By: Diego Noble on 10-16-2023 ALT [Catalytic activity/Vol] 10 U/L 7-52 [facility] Albumin [Mass/volume] in Ser um or Plasma by Bromocresol green (BCG) dye binding methoOrdered By: Diego Noble on 10-16-2023 Albumin BCG dye [Mass/Vol] 3.7 g/dL 3.5-5.7 [facility] Alkaline phosphatase [Enzyma tic activity/volume] in Serum or PlasmaOrdered By: Diego Noble on 10-16-2023 ALP [Catalytic activity/Vol] 84 U/L 34-104 [facility] Aspartate aminotransferase [ Enzymatic activity/volume] in Serum or PlasmaOrdered By: Diego Noble on 10-16-2023 AST [Catalytic activity/Vol] 14 U/L 13-39 [facility] Basophils Auto (Bld) [#/Vol] Ordered By: Diego Noble on 10-16-2023 Basophils (Bld) [#/Vol] 0.4 10*3/uL 0.0-0.2 [facility] Basophils/100 WBC Auto (Bld) Ordered By: Diego Noble on 10-16-2023 Basophils/100 WBC (Bld) 2.6 % . [facility] Bilirubin.total [Mass/volume ] in Serum or PlasmaOrdered By: Diego Noble on 10-16-2023 Bilirubin [Mass/Vol] 0.2 mg/dL 0.3-1.0 [facility] Calcium [Mass/volume] in Ser um or PlasmaOrdered By: Diego Noble on 10-16-2023 Calcium [Mass/Vol] 9.1 mg/dL 8.6-10.3 [facility] Carbon dioxide, total [Moles /volume] in Serum or PlasmaOrdered By: Diego Noble on 10-16-2023 CO2 [Moles/Vol] 25.9 mmol/L 21.0-31.0 [facility] Chloride [Moles/volume] in S alissa or PlasmaOrdered By: Diego Noble on 10-16-2023 Chloride [Moles/Vol] 101 mmol/L 98-107 [facility] Creatinine [Mass/volume] in Serum or PlasmaOrdered By: Diego Noble on 10-16-2023 Creatinine [Mass/Vol] 0.55 mg/dL 0.60-1.20 [facility] Eosinophils Auto (Bld) [#/Vo l]Ordered By: Diego Noble on 10-16-2023 Eosinophils (Bld) [#/Vol] 0.5 10*3/uL 0.0-0.45 [facility] Eosinophils/100 WBC Auto (Bl d)Ordered By: Diego Noble on 10-16-2023 Eosinophils/100 WBC (Bld) 3.3 % . [facility] Erythrocyte distribution wid th Auto (RBC) [Ratio]Ordered By: Diego Noble on 10-16-2023 Erythrocyte distribution width (RBC) [Ratio] 13.0 % 11.9-15.3 [facility] Globulin Calc (S) [Mass/Vol] Ordered By: Diego Noble on 10-16-2023 Globulin (S) [Mass/Vol] 2.6 g/dL [facility] Glucose [Mass/volume] in Ser um or PlasmaOrdered By: Diego Noble on 10-16-2023 Glucose [Mass/Vol] 197 mg/dL 70-100 [facility] Comment on above: ADA recommended refe rence rangeRandom Glucose Reference Range is dependent on time and content of last meal. Glucose of more than 200 mg/dL in a nonstressed, ambulatory subject supports the diagnosis of Diabetes Mellitus. Hematocrit Auto (Bld) [Volum e fraction]Ordered By: Diego Noble on 10-16-2023 Hematocrit (Bld) [Volume fraction] 34.0 % 34.0-46.4 [facility] Hemoglobin [Mass/volume] in BloodOrdered By: Diego Noble on 10-16-2023 Hemoglobin (Bld) [Mass/Vol] 11.6 g/dL 11.8-15.4 [facility] INR in Platelet poor plasma by Coagulation assayOrdered By: Diego Noble on 10-16-2023 INR Coag (PPP) [Relative time] 0.9 {INR} [facility] Comment on above: INR Therapeutic [...] on 10-16-2023 Lactate [Moles/Vol] 2.1 mmol/L 0.5-2.2 [facility] Comment on above: Critical Result : Ca lled to and read back by: MACO BECK at: 10/16/2023 12:33:20 by:RG Leukocytes [#/volume] correc cherie for nucleated erythrocytes in Blood by Automated counOrdered By: Diego Noble on 10-16-2023 WBC corrected for nucl RBC Auto (Bld) [#/Vol] 14.3 10*3/uL 3.8-11.6 [facility] Lymphocytes Auto (Bld) [#/Vo l]Ordered By: Diego Noble on 10-16-2023 Lymphocytes (Bld) [#/Vol] 4.9 10*3/uL 1.00-4.8 [facility] Lymphocytes/100 WBC Auto (Bl d)Ordered By: Diego Noble on 10-16-2023 Lymphocytes/100 WBC (Bld) 34.0 % . [facility] MCH Auto (RBC) [Entitic mass ]Ordered By: Diego Noble on 10-16-2023 MCH (RBC) [Entitic mass] 30.3 pg 24.7-34.3 [facility] MCHC Auto (RBC) [Mass/Vol]Or dered By: Diego Noble on 10-16-2023 MCHC (RBC) [Mass/Vol] 34.1 g/dL 32.0-35.0 [facility] MCV Auto (RBC) [Entitic vol] Ordered By: Diego Noble on 10-16-2023 MCV (RBC) [Entitic vol] 88.7 fL 80-100 [facility] Monocyte distribution width [Entitic volume] in Blood by AutomatedOrdered By: Diego Noble on 10-16-2023 Monocyte distribution width Auto (Bld) [Entitic vol] 20.62 % 0.00-20.00 [facility] Comment on above: For adults in ED, MD W > 20.0 may be associated with a higher risk of sepsis during the first 12 hrs of hospital admission Monocytes Auto (Bld) [#/Vol] Ordered By: Diego Noble on 10-16-2023 Monocytes (Bld) [#/Vol] 0.9 10*3/uL 0.0-0.8 [facility] Monocytes/100 WBC Auto (Bld) Ordered By: Diego Noble on 10-16-2023 Monocytes/100 WBC (Bld) 6.3 % . [facility] Neutrophils Auto (Bld) [#/Vo l]Ordered By: Diego Noble on 10-16-2023 Neutrophils (Bld) [#/Vol] 7.7 10*3/uL 1.8-7.7 [facility] Neutrophils/100 WBC Auto (Bl d)Ordered By: Diego Noble on 10-16-2023 Neutrophils/100 WBC (Bld) 53.8 % . [facility] No Panel InformationOrdered By: Diego Noble on 10-16-2023 Estimated GFR (CKD-EPI) > 60.0 mL/Min [facility] Creatinine Clearance (Chem 134.19 [facility] Nucleated erythrocytes [Pres ence] in Blood by Automated countOrdered By: Diego Noble on 10-16-2023 Nucleated RBC Auto Ql (Bld) 0.1 /100{WBC} 0-0.5 [facility] Platelet mean volume Auto (B ld) [Entitic vol]Ordered By: Diego Noble on 10-16-2023 Platelet mean volume (Bld) [Entitic vol] 6.7 fL 6.3-10.7 [facility] Platelets Auto (Bld) [#/Vol] Ordered By: Diego Noble on 10-16-2023 Platelets (Bld) [#/Vol] 454 10*3/uL 150-450 [facility] Potassium [Moles/volume] in Serum or PlasmaOrdered By: Diego Noble on 10-16-2023 Potassium [Moles/Vol] 4.3 mmol/L 3.5-5.1 [facility] Protein [Mass/volume] in Ser um or PlasmaOrdered By: Diego Noble on 10-16-2023 Protein [Mass/Vol] 6.3 g/dL 6.4-8.9 [facility] Prothrombin time (PT)Ordered By: Diego Noble on 10-16-2023 PT Coag (PPP) [Time] 9.9 s 9.0-12.9 [facility] Comment on above: A hematocrit value g reater than 55% may lead to inaccurate results in coagulation testing. Patients having hematocrit values >55% require a special collection tube for coagulation studies. Please contact the laboratory at [phone] for redraw instructions. RBC Auto (Bld) [#/Vol]Ordere d By: Deigo Noble on 10-16-2023 RBC (Bld) [#/Vol] 3.84 10*6/uL 3.60-5.00 [facility] Serum or plasma albumin/glob ulin mass ratioOrdered By: Diego Noble on 10-16-2023 Albumin/Globulin [Mass ratio] 1.4 {ratio} [facility] Serum or plasma anion gap de terminationOrdered By: Diego Noble on 10-16-2023 Anion gap [Moles/Vol] 14.4 mmol/L 6.0-15.0 [facility] Sodium [Moles/volume] in Ser um or PlasmaOrdered By: Diego Noble on 10-16-2023 Sodium [Moles/Vol] 137 mmol/L 136-145 [facility] Urea nitrogen [Mass/volume] in Serum or PlasmaOrdered By: Diego Noble on 10-16-2023 Urea nitrogen [Mass/Vol] 12 mg/dL 7-25 [facility] WBC Auto (Bld) [#/Vol]Ordere d By: Diego Noble on 10-16-2023 WBC (Bld) [#/Vol] 14.3 10*3/uL 3.8-11.6 [facility] Basophils Auto (Bld) [#/Vol] Ordered By: Ilene Lopez on 10-09-2023 Basophils (Bld) [#/Vol] 0.1 10*3/uL 0.0-0.2 [facility] Basophils/100 WBC Auto (Bld) Ordered By: Ilene Lopez on 10-09-2023 Basophils/100 WBC (Bld) 0.4 % . [facility] Calcium [Mass/volume] in Ser um or PlasmaOrdered By: Ilene Lopez on 10-09-2023 Calcium [Mass/Vol] 7.9 mg/dL 8.6-10.3 [facility] Carbon dioxide, total [Moles /volume] in Serum or PlasmaOrdered By: Ilene Lopez on 10-09-2023 CO2 [Moles/Vol] 22.6 mmol/L 21.0-31.0 [facility] [place] Chloride [Moles/volume] in S alissa or PlasmaOrdered By: Ilene Lopez on 10-09-2023 Chloride [Moles/Vol] 105 mmol/L 98-107 [facility] Clostridioides difficile tox in B tcdB gene [Presence] in Stool by NAYELY with probe deteOrdered By: BONG Velez on 10-09-2023 C. difficile toxin B tcdB gene NAYELY+probe Ql (Stl) Positive Negative [facility] Comment on above: Results calledat 161 9 on 10/09/23 Testing performed by RT-PCR Creatinine [Mass/volume] in Serum or PlasmaOrdered By: Ilene Lopez on 10-09-2023 Creatinine [Mass/Vol] 0.48 mg/dL 0.60-1.20 [facility] Eosinophils Auto (Bld) [#/Vo l]Ordered By: Ilene Lopez on 10-09-2023 Eosinophils (Bld) [#/Vol] 0.5 10*3/uL 0.0-0.45 [facility] Eosinophils/100 WBC Auto (Bl d)Ordered By: Ilene Lopez on 10-09-2023 Eosinophils/100 WBC (Bld) 3.5 % . [facility] Erythrocyte distribution wid th Auto (RBC) [Ratio]Ordered By: Ilene Calderon on 10-09-2023 Erythrocyte distribution width (RBC) [Ratio] 13.2 % 11.9-15.3 [facility] Glucose Glucometer (BldC) [M ass/Vol]Ordered By: Salazar Cabrera on 10-09-2023 Glucose [Mass/Vol] 299 mg/dL [facility] Comment on above: Random Glucose Refer ence Range is dependent on time and content of last meal. Glucose of more than 200 mg/dL in a nonstressed, ambulatory subject supports the diagnosis of Diabetes Mellitus. Glucose [Mass/volume] in Ser um or PlasmaOrdered By: Ilene Lopez on 10-09-2023 Glucose [Mass/Vol] 143 mg/dL 70-100 [facility] Comment on above: ADA recommended refe rence rangeRandom Glucose Reference Range is dependent on time and content of last meal. Glucose of more than 200 mg/dL in a nonstressed, ambulatory subject supports the diagnosis of Diabetes Mellitus. Hematocrit Auto (Bld) [Volum e fraction]Ordered By: Ilene Lopez on 10-09-2023 Hematocrit (Bld) [Volume fraction] 30.3 % 34.0-46.4 [facility] Hemoglobin [Mass/volume] in BloodOrdered By: Ilene Lopez on 10-09-2023 Hemoglobin (Bld) [Mass/Vol] 10.3 g/dL 11.8-15.4 [facility] Leukocytes [#/volume] correc cherie for nucleated erythrocytes in Blood by Automated counOrdered By: Ilene Lopez on 10-09-2023 WBC corrected for nucl RBC Auto (Bld) [#/Vol] 13.6 10*3/uL 3.8-11.6 [facility] Lymphocytes Auto (Bld) [#/Vo l]Ordered By: Ilene Lopez on 10-09-2023 Lymphocytes (Bld) [#/Vol] 2.2 10*3/uL 1.00-4.8 [facility] Lymphocytes/100 WBC Auto (Bl d)Ordered By: Ilene Lopez on 10-09-2023 Lymphocytes/100 WBC (Bld) 16.5 % . [facility] MCH Auto (RBC) [Entitic mass ]Ordered By: Ilene Lopez on 10-09-2023 MCH (RBC) [Entitic mass] 29.9 pg 24.7-34.3 [facility] MCHC Auto (RBC) [Mass/Vol]Or dered By: Ilene Lopez on 10-09-2023 MCHC (RBC) [Mass/Vol] 34.0 g/dL 32.0-35.0 [facility] MCV Auto (RBC) [Entitic vol] Ordered By: Ilene Lopez on 10-09-2023 MCV (RBC) [Entitic vol] 88.1 fL 80-100 [facility] Monocytes Auto (Bld) [#/Vol] Ordered By: Ilene Lopez on 10-09-2023 Monocytes (Bld) [#/Vol] 1.3 10*3/uL 0.0-0.8 [facility] Monocytes/100 WBC Auto (Bld) Ordered By: Ilene Lopez on 10-09-2023 Monocytes/100 WBC (Bld) 9.5 % . [facility] Neutrophils Auto (Bld) [#/Vo l]Ordered By: Ilene Lopez on 10-09-2023 Neutrophils (Bld) [#/Vol] 9.6 10*3/uL 1.8-7.7 [facility] Neutrophils/100 WBC Auto (Bl d)Ordered By: Ilene Lopez on 10-09-2023 Neutrophils/100 WBC (Bld) 70.1 % . [facility] No Panel InformationOrdered By: Salazar Cabrera on 10-09-2023 Bedside Glucose Comment Glu2: cleaned meter [facility] No Panel InformationOrdered By: Ilene Lopez on 10-09-2023 Estimated GFR (CKD-EPI) > 60.0 mL/Min [facility] Creatinine Clearance (Chem 153.15 [facility] Nucleated erythrocytes [Pres ence] in Blood by Automated countOrdered By: Ilene Lopez on 10-09-2023 Nucleated RBC Auto Ql (Bld) 0.1 /100{WBC} 0-0.5 [facility] Platelet mean volume Auto (B ld) [Entitic vol]Ordered By: Ilene Lopez on 10-09-2023 Platelet mean volume (Bld) [Entitic vol] 7.9 fL 6.3-10.7 [facility] Platelets Auto (Bld) [#/Vol] Ordered By: Ilene Lopez on 10-09-2023 Platelets (Bld) [#/Vol] 242 10*3/uL 150-450 [facility] Potassium [Moles/volume] in Serum or PlasmaOrdered By: Ilene Lopez on 10-09-2023 Potassium [Moles/Vol] 3.4 mmol/L 3.5-5.1 [facility] RBC Auto (Bld) [#/Vol]Ordere d By: Ilene Lopez on 10-09-2023 RBC (Bld) [#/Vol] 3.44 10*6/uL 3.60-5.00 [facility] Serum or plasma anion gap de terminationOrdered By: Ilene Lopez on 10-09-2023 Anion gap [Moles/Vol] 11.8 mmol/L 6.0-15.0 [facility] [place] Sodium [Moles/volume] in Ser um or PlasmaOrdered By: Ilene Lopez on 10-09-2023 Sodium [Moles/Vol] 136 mmol/L 136-145 [facility] Stool bacteria identificatio n by cultureOrdered By: BONG Velez on 10-09-2023 Bacteria identified Cx Nom (Stl) [facility] Urea nitrogen [Mass/volume] in Serum or PlasmaOrdered By: Ilene Lopez on 10-09-2023 Urea nitrogen [Mass/Vol] 6 mg/dL 7-25 [facility] WBC Auto (Bld) [#/Vol]Ordere d By: Ilene Lopez on 10-09-2023 WBC (Bld) [#/Vol] 13.6 10*3/uL 3.8-11.6 [facility] Alanine aminotransferase [En zymatic activity/volume] in Serum or PlasmaOrdered By: BONG Velez on 10-08-2023 ALT [Catalytic activity/Vol] 31 U/L 7-52 [facility] Albumin [Mass/volume] in Ser um or Plasma by Bromocresol green (BCG) dye binding methoOrdered By: BONG Velez on 10-08-2023 Albumin BCG dye [Mass/Vol] 3.7 g/dL 3.5-5.7 [facility] Alkaline phosphatase [Enzyma tic activity/volume] in Serum or PlasmaOrdered By: BONG Velez on 10-08-2023 ALP [Catalytic activity/Vol] 61 U/L 34-104 [facility] Aspartate aminotransferase [ Enzymatic activity/volume] in Serum or PlasmaOrdered By: BONG Velez on 10-08-2023 AST [Catalytic activity/Vol] 40 U/L 13-39 [facility] Automated erythrocytes count in urine sediment (number/area)Ordered By: BONG Velez on 10-08-2023 RBC Auto (Urine sed) [#/Area] 5-9 [HPF] 0-4 [facility] Automated leukocytes count i n urine sediment (number/area)Ordered By: BONG Velez on 10-08-2023 WBC Auto (Urine sed) [#/Area] 3-4 [HPF] 0-4 [facility] Automated urine hyaline cast s count (number/volume)Ordered By: BONG Velez on 10-08-2023 Hyaline casts Auto (U) [#/Vol] None seen [LPF] 0-1 [facility] Bilirubin Test strip Ql (U)O rdered By: BONG Velez on 10-08-2023 Bilirubin Ql (U) 1+ Negative [facility] [place] Bilirubin.total [Mass/volume ] in Serum or PlasmaOrdered By: BONG Velez on 10-08-2023 Bilirubin [Mass/Vol] 0.6 mg/dL 0.3-1.0 [facility] Casts typing in urine sedime nt by light microscopyOrdered By: BONG Velez on 10-08-2023 Casts LM Nom (Urine sed) None seen [LPF] None Seen [facility] Color Auto (U)Ordered By: MD ALMA Velez on 10-08-2023 Color (U) [place] Yellow [facility] Globulin Calc (S) [Mass/Vol] Ordered By: BONG Velez on 10-08-2023 Globulin (S) [Mass/Vol] 2.6 g/dL [facility] Ketones Auto test strip (U) [Mass/Vol]Ordered By: BONG Velez on 10-08-2023 Ketones (U) [Mass/Vol] Trace Negative [facility] Lactate [Moles/volume] in Se rum or PlasmaOrdered By: BONG Velez on 10-08-2023 Lactate [Moles/Vol] 1.9 mmol/L 0.5-2.2 [facility] Nitrite Test strip Ql (U)Ord ered By: BONG Velez on 10-08-2023 Nitrite Ql (U) Negative Negative [facility] Protein Auto test strip (U) [Mass/Vol]Ordered By: BONG Velez on 10-08-2023 Protein (U) [Mass/Vol] 30 mg/dL Negative [facility] Protein [Mass/volume] in Ser um or PlasmaOrdered By: BONG Velez on 10-08-2023 Protein [Mass/Vol] 6.3 g/dL 6.4-8.9 [facility] Serum or plasma albumin/glob ulin mass ratioOrdered By: BONG Velez on 10-08-2023 Albumin/Globulin [Mass ratio] 1.4 {ratio} [facility] Specific gravity Auto test s trip (U) [Rel density]Ordered By: BONG Velez on 10-08-2023 Specific gravity (U) [Rel density] > 1.050 1.001-1.03 0 [facility] Squamous epithelial cells de tection in urine sediment by light microscopyOrdered By: BONG Velez on 10-08-2023 Epithelial cells.squamous LM Ql (Urine sed) 5-9 [HPF] 0-2 [facility] Urine bacteria detection by automated methodOrdered By: BONG Velez on 10-08-2023 Bacteria Auto Ql (U) None seen None Seen [facility] Urine clarity by refractomet ry automatedOrdered By: BONG Velez on 10-08-2023 Clarity Refractometry automated (U) Turbid Clear [facility] Urine glucose measurement by automated test strip (mass/volume)Ordered By: ARIELLE Velez on 10-08-2023 Glucose Auto test strip (U) [Mass/Vol] 250 mg/dL Normal [facility] Urine hemoglobin detection b y automated test stripOrdered By: OBNG Velez on 10-08-2023 Hemoglobin Auto test strip Ql (U) Negative Negative [facility] Urine leukocyte esterase det ection by automated test stripOrdered By: BONG Velez on 10-08-2023 Leukocyte esterase Auto test strip Ql (U) Negative Negative [facility] Urobilinogen Auto test strip (U) [Mass/Vol]Ordered By: BONG Velez on 10-08-2023 Urobilinogen (U) [Mass/Vol] Normal mg/dL Normal [facility] pH Auto test strip (U)Ordere d By: BONG Velez on 10-08-2023 pH (U) 5.5 [pH] 5.0-9.0 [facility] Glucose Glucometer (BldC) [M ass/Vol]Ordered By: Carri Manuel on 09-28-2023 Glucose [Mass/Vol] 196 mg/dL [facility] Comment on above: Random Glucose Refer ence Range is dependent on time and content of last meal. Glucose of more than 200 mg/dL in a nonstressed, ambulatory subject supports the diagnosis of Diabetes Mellitus. HCG ( test) IA.mateus d Ql (U)Ordered By: Edna Álvarez on 09-28-2023 HCG ( test) Ql (U) Negative [facility] No Panel InformationOrdered By: Carri Manuel on 09-28-2023 Bedside Glucose Comment Glu2: cleaned meter [facility] Basophils Auto (Bld) [#/Vol] Ordered By: Carri Manuel on 09-16-2023 Basophils (Bld) [#/Vol] 0.1 10*3/uL 0.0-0.2 [facility] Basophils/100 WBC Auto (Bld) Ordered By: Carri Manuel on 09-16-2023 Basophils/100 WBC (Bld) 0.6 % . [facility] Calcium [Mass/volume] in Ser um or PlasmaOrdered By: Carri Manuel on 09-16-2023 Calcium [Mass/Vol] 9.3 mg/dL 8.6-10.3 [facility] Carbon dioxide, total [Moles /volume] in Serum or PlasmaOrdered By: Carri Manuel on 09-16-2023 CO2 [Moles/Vol] 25.5 mmol/L 21.0-31.0 [facility] [place] Chloride [Moles/volume] in S alissa or PlasmaOrdered By: Carri Manuel on 09-16-2023 Chloride [Moles/Vol] 99 mmol/L 98-107 [facility] Creatinine [Mass/volume] in Serum or PlasmaOrdered By: Carri Manuel on 09-16-2023 Creatinine [Mass/Vol] 0.68 mg/dL 0.60-1.20 [facility] Eosinophils Auto (Bld) [#/Vo l]Ordered By: Carri Manuel on 09-16-2023 Eosinophils (Bld) [#/Vol] 0.1 10*3/uL 0.0-0.45 [facility] Eosinophils/100 WBC Auto (Bl d)Ordered By: Carri Manuel on 09-16-2023 Eosinophils/100 WBC (Bld) 0.5 % . [facility] Erythrocyte distribution wid th Auto (RBC) [Ratio]Ordered By: Carri Manuel on 09-16-2023 Erythrocyte distribution width (RBC) [Ratio] 13.3 % 11.9-15.3 [facility] Glucose [Mass/volume] in Ser um or PlasmaOrdered By: Carri Manuel on 09-16-2023 Glucose [Mass/Vol] 355 mg/dL 70-100 [facility] Comment on above: ADA recommended refe rence rangeRandom Glucose Reference Range is dependent on time and content of last meal. Glucose of more than 200 mg/dL in a nonstressed, ambulatory subject supports the diagnosis of Diabetes Mellitus. Hematocrit Auto (Bld) [Volum e fraction]Ordered By: Carri Manuel on 09-16-2023 Hematocrit (Bld) [Volume fraction] 38.3 % 34.0-46.4 [facility] Hemoglobin [Mass/volume] in BloodOrdered By: Carri Manuel on 09-16-2023 Hemoglobin (Bld) [Mass/Vol] 12.8 g/dL 11.8-15.4 [facility] Leukocytes [#/volume] correc cherie for nucleated erythrocytes in Blood by Automated counOrdered By: Carri Manuel on 09-16-2023 WBC corrected for nucl RBC Auto (Bld) [#/Vol] 12.5 10*3/uL 3.8-11.6 [facility] Lymphocytes Auto (Bld) [#/Vo l]Ordered By: Carri Manuel on 09-16-2023 Lymphocytes (Bld) [#/Vol] 3.1 10*3/uL 1.00-4.8 [facility] Lymphocytes/100 WBC Auto (Bl d)Ordered By: Carri Manuel on 09-16-2023 Lymphocytes/100 WBC (Bld) 24.9 % . [facility] MCH Auto (RBC) [Entitic mass ]Ordered By: Carri Manuel on 09-16-2023 MCH (RBC) [Entitic mass] 29.7 pg 24.7-34.3 [facility] MCHC Auto (RBC) [Mass/Vol]Or dered By: Carri Manuel on 09-16-2023 MCHC (RBC) [Mass/Vol] 33.5 g/dL 32.0-35.0 [facility] MCV Auto (RBC) [Entitic vol] Ordered By: Carri Manuel on 09-16-2023 MCV (RBC) [Entitic vol] 88.8 fL 80-100 [facility] Monocytes Auto (Bld) [#/Vol] Ordered By: Carri Manuel on 09-16-2023 Monocytes (Bld) [#/Vol] 0.9 10*3/uL 0.0-0.8 [facility] Monocytes/100 WBC Auto (Bld) Ordered By: Carri Manuel on 09-16-2023 Monocytes/100 WBC (Bld) 7.5 % . [facility] Neutrophils Auto (Bld) [#/Vo l]Ordered By: Carri Manuel on 09-16-2023 Neutrophils (Bld) [#/Vol] 8.3 10*3/uL 1.8-7.7 [facility] Neutrophils/100 WBC Auto (Bl d)Ordered By: Carri Manuel on 09-16-2023 Neutrophils/100 WBC (Bld) 66.5 % . [facility] No Panel InformationOrdered By: Carri Manuel on 09-16-2023 Estimated GFR (CKD-EPI) > 60.0 mL/Min [facility] Creatinine Clearance (Chem N/A [facility] Nucleated erythrocytes [Pres ence] in Blood by Automated countOrdered By: Carri Manuel on 09-16-2023 Nucleated RBC Auto Ql (Bld) 0.1 /100{WBC} 0-0.5 [facility] Platelet mean volume Auto (B ld) [Entitic vol]Ordered By: Carri Manuel on 09-16-2023 Platelet mean volume (Bld) [Entitic vol] 8.2 fL 6.3-10.7 [facility] Platelets Auto (Bld) [#/Vol] Ordered By: Carri Manuel on 09-16-2023 Platelets (Bld) [#/Vol] 305 10*3/uL 150-450 [facility] Potassium [Moles/volume] in Serum or PlasmaOrdered By: Carri Manuel on 09-16-2023 Potassium [Moles/Vol] 5.0 mmol/L 3.5-5.1 [facility] RBC Auto (Bld) [#/Vol]Ordere d By: Carri Manuel on 09-16-2023 RBC (Bld) [#/Vol] 4.31 10*6/uL 3.60-5.00 [facility] Serum or plasma anion gap de terminationOrdered By: Carri Manuel on 09-16-2023 Anion gap [Moles/Vol] 14.5 mmol/L 6.0-15.0 [facility] [place] Sodium [Moles/volume] in Ser um or PlasmaOrdered By: Carri Manuel on 09-16-2023 Sodium [Moles/Vol] 134 mmol/L 136-145 [facility] Urea nitrogen [Mass/volume] in Serum or PlasmaOrdered By: Carri Manuel on 09-16-2023 Urea nitrogen [Mass/Vol] 13 mg/dL 7-25 [facility] WBC Auto (Bld) [#/Vol]Ordere d By: Carri Manuel on 09-16-2023 WBC (Bld) [#/Vol] 12.5 10*3/uL 3.8-11.6 [facility] Glucose Glucometer (BldC) [M ass/Vol]Ordered By: Carri Manuel on 07-13-2023 Glucose [Mass/Vol] 119 mg/dL [facility] Comment on above: Random Glucose Refer ence Range is dependent on time and content of last meal. Glucose of more than 200 mg/dL in a nonstressed, ambulatory subject supports the diagnosis of Diabetes Mellitus. HCG ( test) IA.rapi d Ql (U)Ordered By: Julio Monroe on 07-13-2023 HCG ( test) Ql (U) Negative [facility] No Panel InformationOrdered By: Carri Manuel on 07-13-2023 Bedside Glucose Comment Glu2: cleaned meter [facility] Basophils Auto (Bld) [#/Vol] Ordered By: Carri Manuel on 06-30-2023 Basophils (Bld) [#/Vol] 0.1 10*3/uL 0.0-0.2 [facility] Basophils/100 WBC Auto (Bld) Ordered By: Carri Manuel on 06-30-2023 Basophils/100 WBC (Bld) 0.7 % . [facility] Calcium [Mass/volume] in Ser um or PlasmaOrdered By: Carri Manuel on 06-30-2023 Calcium [Mass/Vol] 9.2 mg/dL 8.6-10.3 [facility] Carbon dioxide, total [Moles /volume] in Serum or PlasmaOrdered By: Carri Manuel on 06-30-2023 CO2 [Moles/Vol] 26.7 mmol/L 21.0-31.0 [facility] [place] Chloride [Moles/volume] in S alissa or PlasmaOrdered By: Carri Manuel on 06-30-2023 Chloride [Moles/Vol] 100 mmol/L 98-107 [facility] Creatinine [Mass/volume] in Serum or PlasmaOrdered By: Carri Manuel on 06-30-2023 Creatinine [Mass/Vol] 0.54 mg/dL 0.60-1.20 [facility] Eosinophils Auto (Bld) [#/Vo l]Ordered By: Carri Manuel on 06-30-2023 Eosinophils (Bld) [#/Vol] 0.1 10*3/uL 0.0-0.45 [facility] Eosinophils/100 WBC Auto (Bl d)Ordered By: Carri Manuel on 06-30-2023 Eosinophils/100 WBC (Bld) 0.4 % . [facility] Erythrocyte distribution wid th Auto (RBC) [Ratio]Ordered By: Carri Manuel on 06-30-2023 Erythrocyte distribution width (RBC) [Ratio] 13.3 % 11.9-15.3 [facility] Glucose [Mass/volume] in Ser um or PlasmaOrdered By: Carri Manuel on 06-30-2023 Glucose [Mass/Vol] 134 mg/dL 70-100 [facility] Comment on above: ADA recommended refe rence rangeRandom Glucose Reference Range is dependent on time and content of last meal. Glucose of more than 200 mg/dL in a nonstressed, ambulatory subject supports the diagnosis of Diabetes Mellitus. Hematocrit Auto (Bld) [Volum e fraction]Ordered By: Carri Manuel on 06-30-2023 Hematocrit (Bld) [Volume fraction] 38.9 % 34.0-46.4 [facility] Hemoglobin [Mass/volume] in BloodOrdered By: Carri Manuel on 06-30-2023 Hemoglobin (Bld) [Mass/Vol] 13.0 g/dL 11.8-15.4 [facility] Leukocytes [#/volume] correc cherie for nucleated erythrocytes in Blood by Automated counOrdered By: Carri Manuel on 06-30-2023 WBC corrected for nucl RBC Auto (Bld) [#/Vol] 15.4 10*3/uL 3.8-11.6 [facility] Lymphocytes Auto (Bld) [#/Vo l]Ordered By: Carri Manuel on 06-30-2023 Lymphocytes (Bld) [#/Vol] 4.3 10*3/uL 1.00-4.8 [facility] Lymphocytes/100 WBC Auto (Bl d)Ordered By: Carri Manuel on 06-30-2023 Lymphocytes/100 WBC (Bld) 27.8 % . [facility] MCH Auto (RBC) [Entitic mass ]Ordered By: Carri Manuel on 06-30-2023 MCH (RBC) [Entitic mass] 30.0 pg 24.7-34.3 [facility] MCHC Auto (RBC) [Mass/Vol]Or dered By: Carri Manuel on 06-30-2023 MCHC (RBC) [Mass/Vol] 33.5 g/dL 32.0-35.0 [facility] MCV Auto (RBC) [Entitic vol] Ordered By: Carri Manuel on 06-30-2023 MCV (RBC) [Entitic vol] 89.6 fL 80-100 [facility] Monocytes Auto (Bld) [#/Vol] Ordered By: Carri Manuel on 06-30-2023 Monocytes (Bld) [#/Vol] 1.2 10*3/uL 0.0-0.8 [facility] Monocytes/100 WBC Auto (Bld) Ordered By: Carri Manuel on 06-30-2023 Monocytes/100 WBC (Bld) 7.5 % . [facility] Neutrophils Auto (Bld) [#/Vo l]Ordered By: Carri Manuel on 06-30-2023 Neutrophils (Bld) [#/Vol] 9.8 10*3/uL 1.8-7.7 [facility] Neutrophils/100 WBC Auto (Bl d)Ordered By: Carri Manuel on 06-30-2023 Neutrophils/100 WBC (Bld) 63.6 % . [facility] No Panel InformationOrdered By: Carri Manuel on 06-30-2023 Estimated GFR (CKD-EPI) > 60.0 mL/Min [facility] Creatinine Clearance (Chem N/A [facility] Nucleated erythrocytes [Pres ence] in Blood by Automated countOrdered By: Carri Manuel on 06-30-2023 Nucleated RBC Auto Ql (Bld) 0.0 /100{WBC} 0-0.5 [facility] Platelet mean volume Auto (B ld) [Entitic vol]Ordered By: Carri Manuel on 06-30-2023 Platelet mean volume (Bld) [Entitic vol] 7.9 fL 6.3-10.7 [facility] Platelets Auto (Bld) [#/Vol] Ordered By: Carri Manuel on 06-30-2023 Platelets (Bld) [#/Vol] 275 10*3/uL 150-450 [facility] Potassium [Moles/volume] in Serum or PlasmaOrdered By: Carri Manuel on 06-30-2023 Potassium [Moles/Vol] 4.3 mmol/L 3.5-5.1 [facility] RBC Auto (Bld) [#/Vol]Ordere d By: Carri Manuel on 06-30-2023 RBC (Bld) [#/Vol] 4.34 10*6/uL 3.60-5.00 [facility] Serum or plasma anion gap de terminationOrdered By: Carri Manuel on 06-30-2023 Anion gap [Moles/Vol] 14.6 mmol/L 6.0-15.0 [facility] [place] Sodium [Moles/volume] in Ser um or PlasmaOrdered By: Carri Manuel on 06-30-2023 Sodium [Moles/Vol] 137 mmol/L 136-145 [facility] Urea nitrogen [Mass/volume] in Serum or PlasmaOrdered By: Carri Manuel on 06-30-2023 Urea nitrogen [Mass/Vol] 11 mg/dL 7-25 [facility] WBC Auto (Bld) [#/Vol]Ordere d By: Carri Manuel on 06-30-2023 WBC (Bld) [#/Vol] 15.4 10*3/uL 3.8-11.6 [facility] HCG ( test) IA.rapi d Ql (U)Ordered By: Kyler Miramontes on 05-05-2023 HCG ( test) Ql (U) Negative [facility] Alanine aminotransferase [En zymatic activity/volume] in Serum or PlasmaOrdered By: Ajit Pettit on 05-04-2023 ALT [Catalytic activity/Vol] 17 U/L 7-52 [facility] Albumin [Mass/volume] in Ser um or Plasma by Bromocresol green (BCG) dye binding methoOrdered By: Ajit Polosic on 05-04-2023 Albumin BCG dye [Mass/Vol] 4.4 g/dL 3.5-5.7 [facility] Alkaline phosphatase [Enzyma tic activity/volume] in Serum or PlasmaOrdered By: Ajit Millanc on 05-04-2023 ALP [Catalytic activity/Vol] 55 U/L 34-104 [facility] Aspartate aminotransferase [ Enzymatic activity/volume] in Serum or PlasmaOrdered By: Ajit Millanc on 05-04-2023 AST [Catalytic activity/Vol] 18 U/L 13-39 [facility] Basophils Auto (Bld) [#/Vol] Ordered By: Ajit Millanc on 05-04-2023 Basophils (Bld) [#/Vol] 0.1 10*3/uL 0.0-0.2 [facility] Basophils/100 WBC Auto (Bld) Ordered By: Ajit Millanc on 05-04-2023 Basophils/100 WBC (Bld) 0.9 % . [facility] Bilirubin.total [Mass/volume ] in Serum or PlasmaOrdered By: Ajit Millanc on 05-04-2023 Bilirubin [Mass/Vol] 0.3 mg/dL 0.3-1.0 [facility] Calcium [Mass/volume] in Ser um or PlasmaOrdered By: Ajit Millanc on 05-04-2023 Calcium [Mass/Vol] 9.6 mg/dL 8.6-10.3 [facility] Carbon dioxide, total [Moles /volume] in Serum or PlasmaOrdered By: Ajit Polosic on 05-04-2023 CO2 [Moles/Vol] 28.5 mmol/L 21.0-31.0 [facility] Chloride [Moles/volume] in S alissa or PlasmaOrdered By: Ajit Spasic on 05-04-2023 Chloride [Moles/Vol] 100 mmol/L 98-107 [facility] Cholesterol [Mass/volume] in Serum or PlasmaOrdered By: Ajit Pettit on 05-04-2023 Cholesterol [Mass/Vol] 180 mg/dL 140-200 [facility] [place] Comment on above: Chol less than 200 m g/dl low riskChol 201-239 mg/dl borderline riskChol 240 mg/dl and greater high risk Cholesterol in LDL Calc [Mas s/Vol]Ordered By: Ajit Pettit on 05-04-2023 Cholesterol in LDL [Mass/Vol] 81 mg/dL 0-100 [facility] Comment on above: LDL ATP III CLASSIFI CATIONLDL less than 100 mg/dL OptimalLDL 100-129 mg/dL Near or above optimalLDL 130-159 mg/dL Borderline highLDL 160-189 mg/dL HighLDL greater than 189 mg/dL Very high Cholesterol in VLDL Calc [Ma ss/Vol]Ordered By: Ajit Pettit on 05-04-2023 Cholesterol in VLDL [Mass/Vol] 46 mg/dL [facility] Creatinine [Mass/volume] in Serum or PlasmaOrdered By: Ajit Pettit on 05-04-2023 Creatinine [Mass/Vol] 0.65 mg/dL 0.60-1.20 [facility] Eosinophils Auto (Bld) [#/Vo l]Ordered By: Ajit Pettit on 05-04-2023 Eosinophils (Bld) [#/Vol] 0.1 10*3/uL 0.0-0.45 [facility] Eosinophils/100 WBC Auto (Bl d)Ordered By: Ajit Pettit on 05-04-2023 Eosinophils/100 WBC (Bld) 0.5 % . [facility] Erythrocyte distribution wid th Auto (RBC) [Ratio]Ordered By: Ajit Pettit on 05-04-2023 Erythrocyte distribution width (RBC) [Ratio] 13.4 % 11.9-15.3 [facility] Ferritin [Mass/volume] in Se rum or PlasmaOrdered By: Ajit Pettit on 05-04-2023 Ferritin [Mass/Vol] 90.4 ng/mL 11.0-306.8 [facility] Globulin Calc (S) [Mass/Vol] Ordered By: Ajti Pettit on 05-04-2023 Globulin (S) [Mass/Vol] 2.3 g/dL [facility] Glucose [Mass/volume] in Ser um or PlasmaOrdered By: Ajit Pettit on 05-04-2023 Glucose [Mass/Vol] 124 mg/dL 70-100 [facility] Comment on above: ADA recommended refe rence rangeRandom Glucose Reference Range is dependent on time and content of last meal. Glucose of more than 200 mg/dL in a nonstressed, ambulatory subject supports the diagnosis of Diabetes Mellitus. Hematocrit Auto (Bld) [Volum e fraction]Ordered By: Ajit Pettit on 05-04-2023 Hematocrit (Bld) [Volume fraction] 41.7 % 34.0-46.4 [facility] Hemoglobin [Mass/volume] in BloodOrdered By: Ajit Pettit on 05-04-2023 Hemoglobin (Bld) [Mass/Vol] 14.0 g/dL 11.8-15.4 [facility] Iron [Mass/volume] in Serum or PlasmaOrdered By: Ajit Pettit on 05-04-2023 Iron [Mass/Vol] 95 ug/dL 50-212 [facility] Iron binding capacity [Mass/ volume] in Serum or PlasmaOrdered By: Ajit Pettit on 05-04-2023 Iron binding capacity [Mass/Vol] 476 ug/dL 255-450 [facility] Iron saturation [Mass Fracti on] in Serum or PlasmaOrdered By: Ajit Pettit on 05-04-2023 Iron saturation [Mass fraction] 20.0 % 20-50 [facility] Leukocytes [#/volume] correc cherie for nucleated erythrocytes in Blood by Automated counOrdered By: Ajit Pettit on 05-04-2023 WBC corrected for nucl RBC Auto (Bld) [#/Vol] 14.4 10*3/uL 3.8-11.6 [facility] Lymphocytes Auto (Bld) [#/Vo l]Ordered By: Ajit Pettit on 05-04-2023 Lymphocytes (Bld) [#/Vol] 3.2 10*3/uL 1.00-4.8 [facility] Lymphocytes/100 WBC Auto (Bl d)Ordered By: Ajit Pettit on 05-04-2023 Lymphocytes/100 WBC (Bld) 22.3 % . [facility] MCH Auto (RBC) [Entitic mass ]Ordered By: Ajit Pettit on 05-04-2023 MCH (RBC) [Entitic mass] 29.8 pg 24.7-34.3 [facility] MCHC Auto (RBC) [Mass/Vol]Or dered By: Ajit Pettit on 05-04-2023 MCHC (RBC) [Mass/Vol] 33.5 g/dL 32.0-35.0 [facility] MCV Auto (RBC) [Entitic vol] Ordered By: Ajit Pettit on 05-04-2023 MCV (RBC) [Entitic vol] 89.1 fL 80-100 [facility] Monocytes Auto (Bld) [#/Vol] Ordered By: Ajit Pettit on 05-04-2023 Monocytes (Bld) [#/Vol] 0.9 10*3/uL 0.0-0.8 [facility] Monocytes/100 WBC Auto (Bld) Ordered By: Ajit Pettit on 05-04-2023 Monocytes/100 WBC (Bld) 6.3 % . [facility] Neutrophils Auto (Bld) [#/Vo l]Ordered By: Ajit Pettit on 05-04-2023 Neutrophils (Bld) [#/Vol] 10.1 10*3/uL 1.8-7.7 [facility] Neutrophils/100 WBC Auto (Bl d)Ordered By: Ajit Pettit on 05-04-2023 Neutrophils/100 WBC (Bld) 70.0 % . [facility] No Panel InformationOrdered By: Ajit Pettit on 05-04-2023 Estimated GFR (CKD-EPI) > 60.0 mL/Min [facility]acy Creatinine Clearance (Chem N/A [facility] Nucleated erythrocytes [Pres ence] in Blood by Automated countOrdered By: Ajit Pettit on 05-04-2023 Nucleated RBC Auto Ql (Bld) 0.1 /100{WBC} 0-0.5 [facility] Platelet mean volume Auto (B ld) [Entitic vol]Ordered By: Ajit Pettit on 05-04-2023 Platelet mean volume (Bld) [Entitic vol] 8.4 fL 6.3-10.7 [facility] Platelets Auto (Bld) [#/Vol] Ordered By: Ajit Pettit on 05-04-2023 Platelets (Bld) [#/Vol] 328 10*3/uL 150-450 [facility] Potassium [Moles/volume] in Serum or PlasmaOrdered By: Ajit Pettit on 05-04-2023 Potassium [Moles/Vol] 5.3 mmol/L 3.5-5.1 [facility] Protein [Mass/volume] in Ser um or PlasmaOrdered By: Ajit Pettit on 05-04-2023 Protein [Mass/Vol] 6.7 g/dL 6.4-8.9 [facility] RBC Auto (Bld) [#/Vol]Ordere d By: Ajit Pettit on 05-04-2023 RBC (Bld) [#/Vol] 4.68 10*6/uL 3.60-5.00 [facility] Serum or plasma albumin/glob ulin mass ratioOrdered By: Ajit Pettit on 05-04-2023 Albumin/Globulin [Mass ratio] 1.9 {ratio} [facility] Serum or plasma anion gap de terminationOrdered By: Ajit Pettit on 05-04-2023 Anion gap [Moles/Vol] 11.8 mmol/L 6.0-15.0 [facility] [place] Serum or plasma high density lipoprotein (HDL) cholesterol measurementOrdered By: Ajit Pettit on 05-04-2023 Cholesterol in HDL [Mass/Vol] 52 mg/dL 23-92 [facility] Comment on above: HDL CHOL ATP-III CLA SSIFICATION Cardiovascular RiskHDL > or equal to 60 mg/dL LOWHDL < 40 mg/dL HIGH Serum or plasma total choles terol/high density lipoprotein (HDL) cholesterol mass ratOrdered By: Ajit Pettit on 05-04-2023 Cholesterol.total/Suellen sterol in HDL [Mass ratio] 3.5 {ratio} <5.0 [facility] Sodium [Moles/volume] in Ser um or PlasmaOrdered By: Ajit Pettit on 05-04-2023 Sodium [Moles/Vol] 135 mmol/L 136-145 [facility] Thyrotropin [Units/volume] i n Serum or PlasmaOrdered By: Ajit Pettit on 05-04-2023 TSH Qn 1.97 m[IU]/L 0.45-5.33 [facility] Transferrin [Mass/volume] in Serum or PlasmaOrdered By: Ajit Pettit on 05-04-2023 Transferrin [Mass/Vol] 340 mg/dL 203-362 [facility] [place] Triglyceride [Mass/volume] i n Serum or PlasmaOrdered By: Ajit Pettit on 05-04-2023 Triglyceride [Mass/Vol] 233 mg/dL 0-149 [facility] Comment on above: TRIG ATP III CLASSIF ICATIONTRIG less than 150 mg/dL NormalTRIG 150-199 mg/dL Borderline highTRIG 200-500 mg/dL High TRIG greater than 500 mg/dL Very highStandard traceable to the Center for Disease Conrtrol and Prevention (CDC) test method. Urea nitrogen [Mass/volume] in Serum or PlasmaOrdered By: Ajit Pettit on 05-04-2023 Urea nitrogen [Mass/Vol] 9 mg/dL 7-25 [facility] Urine culture routineOrdered By: Ajit Pettit on 05-04-2023 Bacteria identified Cx Nom (U) Strep. agalactiae Grp B [facility] WBC Auto (Bld) [#/Vol]Ordere d By: Ajit Pettit on 05-04-2023 WBC (Bld) [#/Vol] 14.4 10*3/uL 3.8-11.6 [facility] HCG ( test) IA.rapi d Ql (U)Ordered By: Kyler Miramontes on 04-14-2023 HCG ( test) Ql (U) Negative [facility] CBC AUTO DIFFon 02-15-2023 BASO # 0.1 103/ul Normal 0.0-0.1 [facility] Comment on above: Performed By: #### C BC #### [facility] [address] [place] [address] Dr. Vito Grimm Basophils/100 WBC (Bld) 0.5 % Normal 0.2-2.0 [facility] Comment on above: Performed By: #### C BC #### [facility] [address] [place] [address] Dr. Vito Grimm EO # 0.1 103/ul Normal 0.0-0.7 [facility] Comment on above: Performed By: #### C BC #### [facility] [address] [place] [address] Dr. Vito Grimm Eosinophils/100 WBC (Bld) 0.8 % Critically low 0.9-7.0 [facility] Comment on above: Performed By: #### C BC #### [facility] [address] [place] [address] Dr. Vito Grimm Erythrocyte distribution width (RBC) [Ratio] 13.1 % Normal 11.0-15.0 [facility] Comment on above: Performed By: #### C BC #### [facility] [address] [place] [address] Dr. Vito Grimm Hematocrit (Bld) [Volume fraction] 41.2 % Normal 36.0-48.0 [facility] Comment on above: Performed By: #### C BC #### [facility] [address] [place] [address] Dr. Vito Grimm Hemoglobin (Bld) [Mass/Vol] 13.4 g/dL Normal 12.0-16.0 [facility] Comment on above: Performed By: #### C BC #### [facility] [address] [place] [address] Dr. Vito Grimm IG # 0.05 10e3/ul Critically high 0.00-0.03 [facility] Comment on above: Performed By: #### C BC #### [facility] [address] [place] [address] Dr. Vito Grimm IG % 0.4 % Normal 0.0-0.5 [facility] Comment on above: Performed By: #### C BC #### [facility] [address] [place] [address] Dr. Vito Grimm LYMPH # 4.8 103/ul Critically high 1.2-3.8 [facility] Comment on above: Performed By: #### C BC #### [facility] [address] [place] [address] Dr. Vito Grimm Lymphocytes/100 WBC (Bld) 38.8 % Normal 20.5-60.0 [facility] Comment on above: Performed By: #### C BC #### [facility] [address] [place] [address] Dr. Vito Grimm MANUAL DIFF REQ NO Normal [facility] Comment on above: Performed By: #### C BC #### [facility] [address] [place] [address] Dr. Vito Grimm MCH (RBC) [Entitic mass] 29.9 pg Normal 26.7-34.0 [facility] Comment on above: Performed By: #### C BC #### [facility] [address] [place] [address] Dr. Vito Grimm MCHC (RBC) [Mass/Vol] 32.5 g/dL Normal 29.9-35.2 [facility] Comment on above: Performed By: #### C BC #### [facility] [address] [place] [address] Dr. Vito Grimm MCV (RBC) [Entitic vol] 92.0 fL Normal 81.0-99.0 [facility] Comment on above: Performed By: #### C BC #### [facility] [address] [place] [address] Dr. Vito Grimm MONO # 0.9 103/ul Critically high 0.3-0.8 [facility] Comment on above: Performed By: #### C BC #### [facility] [address] [place] [address] Dr. Vito Grimm Monocytes/100 WBC (Bld) 7.4 % Normal 1.7-12.0 [facility] Comment on above: Performed By: #### C BC #### [facility] [address] [place] [address] Dr. Vito Grimm NEUT # 6.5 103/ul Normal 1.4-6.5 [facility] Comment on above: Performed By: #### C BC #### [facility] [address] [place] [address] Dr. Vito Grimm Neutrophils/100 WBC (Bld) 52.1 % Normal 43.0-75.0 [facility] Comment on above: Performed By: #### C BC #### [facility] [address] [place] [address] Dr. Vito Grimm Platelet mean volume (Bld) [Entitic vol] 10.0 fL Normal 9.5-13.5 [facility] Comment on above: Performed By: #### C BC #### [facility] [address] [place] [address] Dr. Vito Grimm PLT 298 103/ul Normal 150-450 [facility] Comment on above: Performed By: #### C BC #### [facility] [address] [place] [address] Dr. Vito Grimm RBC 4.48 106/ul Normal 4.20-5.40 [facility] Comment on above: Performed By: #### C BC #### [facility] [address] [place] [address] Dr. Vito Grimm WBC 12.4 103/ul Critically high 4.0-11.0 [facility] Comment on above: Performed By: #### C BC #### [facility] [address] [place] [address] Dr. Vito Grimm DEPAKENE/ VALPROIC ACIDon DEPAKENE 49.4 ug/ml Critically low 50.0-100.0 [facility] Comment on above: Performed By: #### C MP, HSTROPN #### [facility] [address] [place] [address] Dr. Vtio Grimm LACTATE/LACTIC ACIDon 2022 Lactate [Moles/Vol] 2.7 mmol/L Critically high 0.4-2.0 [facility] Comment on above: Performed By: #### L ACT #### [facility] [address] [address] [address] Vito Grimm PROF CHEM 8 (BAS METB)on Anion gap [Moles/Vol] 17.6 mmol/L Normal [facility] Comment on above: Performed By: #### B MP #### [facility] [address] [place] [address] Dr. Vito Grimm Calcium [Mass/Vol] 8.7 mg/dL Normal 8.5-10.1 [facility] Comment on above: Performed By: #### B MP #### [facility] [address] [place] [address] Dr. Vito Grimm Chloride [Moles/Vol] 99 mmol/L Normal 98-107 [facility] Comment on above: Performed By: #### B MP #### [facility] [address] [place] [address] Dr. Vito Grimm CO2 [Moles/Vol] 23.5 mmol/L Normal 21.0-32.0 [facility] Comment on above: Performed By: #### B MP #### [facility] [address] [place] [address] Dr. Vito Grimm Creatinine [Mass/Vol] 0.75 mg/dL Normal 0.55-1.02 [facility] Comment on above: Performed By: #### B MP #### [facility] [address] [place] [address] Dr. Vito Grimm EGFR-AF [place] >60 Normal >=60 [facility] Comment on above: Performed By: #### B MP #### [facility] [address] [place] [address] Dr. Vito Grimm EGFR-NON AF [place] >60 Normal >=60 [facility] Comment on above: Performed By: #### B MP #### [facility] [address] [place] [address] Dr. Vito Grimm Glucose [Mass/Vol] 273 mg/dL Critically high 74-106 [facility] Comment on above: Performed By: #### B MP #### [facility] [address] [place] [address] Dr. Vito Grimm Potassium [Moles/Vol] 4.1 mmol/L Normal 3.5-5.1 [facility] Comment on above: Performed By: #### B MP #### [facility] [address] [address] [address] Vito Grimm Sodium [Moles/Vol] 136 mmol/L Normal 136-145 [facility] Comment on above: Performed By: #### B MP #### [facility] [address] [address] [address] Vito Grimm Urea nitrogen [Mass/Vol] 6.0 mg/dL Critically low 7.0-18.0 [facility] Comment on above: Performed By: #### B MP #### [facility] [address] [address] [address] Vito Grimm Urea nitrogen/Creatinine [Mass ratio] 8.0 mg/mg Normal [facility] Comment on above: Performed By: #### B MP #### [facility] [address] [address] [address] Vito Grimm Alanine aminotransferase [En zymatic activity/volume] in Serum or PlasmaOrdered By: Ajit Pettit on 02-09-2023 ALT [Catalytic activity/Vol] 29 U/L 7-52 [facility] Albumin [Mass/volume] in Ser um or Plasma by Bromocresol green (BCG) dye binding methoOrdered By: Ajit Pettit on 02-09-2023 Albumin BCG dye [Mass/Vol] 4.4 g/dL 3.5-5.7 [facility] Alkaline phosphatase [Enzyma tic activity/volume] in Serum or PlasmaOrdered By: Ajit Pettit on 02-09-2023 ALP [Catalytic activity/Vol] 72 U/L 34-104 [facility] Aspartate aminotransferase [ Enzymatic activity/volume] in Serum or PlasmaOrdered By: Ajit Pettit on 02-09-2023 AST [Catalytic activity/Vol] 27 U/L 13-39 [facility] Basophils Auto (Bld) [#/Vol] Ordered By: Ajit Pettit on 02-09-2023 Basophils (Bld) [#/Vol] 0.1 10*3/uL 0.0-0.2 [facility] Basophils/100 WBC Auto (Bld) Ordered By: Ajit Pettit on 02-09-2023 Basophils/100 WBC (Bld) 0.6 % . [facility] Bilirubin.total [Mass/volume ] in Serum or PlasmaOrdered By: Ajit Pettit on 02-09-2023 Bilirubin [Mass/Vol] 0.3 mg/dL 0.3-1.0 [facility] Calcium [Mass/volume] in Ser um or PlasmaOrdered By: Ajit Pettit on 02-09-2023 Calcium [Mass/Vol] 9.3 mg/dL 8.6-10.3 [facility] Carbon dioxide, total [Moles /volume] in Serum or PlasmaOrdered By: Ajit Pettit on 02-09-2023 CO2 [Moles/Vol] 23.8 mmol/L 21.0-31.0 [facility] Chloride [Moles/volume] in S alissa or PlasmaOrdered By: Ajit Pettit on 02-09-2023 Chloride [Moles/Vol] 101 mmol/L 98-107 [facility] Cholesterol [Mass/volume] in Serum or PlasmaOrdered By: Ajit Pettit on 02-09-2023 Cholesterol [Mass/Vol] 166 mg/dL 140-200 [facility] Comment on above: Chol less than 200 m g/dl low riskChol 201-239 mg/dl borderline riskChol 240 mg/dl and greater high risk Cholesterol in LDL Calc [Mas s/Vol]Ordered By: Ajit Pettit on 02-09-2023 Cholesterol in LDL [Mass/Vol] TNP [facility] Comment on above: Test not performed Cholesterol in LDL [Mass/vol ume] in Serum or PlasmaOrdered By: Ajit Pettit on 02-09-2023 Cholesterol in LDL [Mass/Vol] 61 mg/dL 0-100 [facility] Comment on above: LDL ATP III CLASSIFI CATIONLDL less than 100 mg/dL OptimalLDL 100-129 mg/dL Near or above optimalLDL 130-159 mg/dL Borderline highLDL 160-189 mg/dL HighLDL greater than 189 mg/dL Very high Cholesterol in VLDL Calc [Ma ss/Vol]Ordered By: Ajit Pettit on 02-09-2023 Cholesterol in VLDL [Mass/Vol] 97 mg/dL [facility] Creatinine [Mass/volume] in Serum or PlasmaOrdered By: Ajit Pettit on 02-09-2023 Creatinine [Mass/Vol] 0.75 mg/dL 0.60-1.20 [facility] Eosinophils Auto (Bld) [#/Vo l]Ordered By: Ajit Pettit on 02-09-2023 Eosinophils (Bld) [#/Vol] 0.1 10*3/uL 0.0-0.45 [facility] Eosinophils/100 WBC Auto (Bl d)Ordered By: Ajit Pettit on 02-09-2023 Eosinophils/100 WBC (Bld) 0.7 % . [facility] Erythrocyte distribution wid th Auto (RBC) [Ratio]Ordered By: Ajit Pettit on 02-09-2023 Erythrocyte distribution width (RBC) [Ratio] 13.1 % 11.9-15.3 [facility] Globulin Calc (S) [Mass/Vol] Ordered By: Ajit Pettit on 02-09-2023 Globulin (S) [Mass/Vol] 2.3 g/dL [facility] Glucose [Mass/volume] in Ser um or PlasmaOrdered By: Ajit Pettit on 02-09-2023 Glucose [Mass/Vol] 286 mg/dL 70-100 [facility] Comment on above: ADA recommended refe rence rangeRandom Glucose Reference Range is dependent on time and content of last meal. Glucose of more than 200 mg/dL in a nonstressed, ambulatory subject supports the diagnosis of Diabetes Mellitus. Hematocrit Auto (Bld) [Volum e fraction]Ordered By: Ajit Pettit on 02-09-2023 Hematocrit (Bld) [Volume fraction] 39.7 % 34.0-46.4 [facility] Hemoglobin [Mass/volume] in BloodOrdered By: Ajit Pettit on 02-09-2023 Hemoglobin (Bld) [Mass/Vol] 13.1 g/dL 11.8-15.4 [facility] Leukocytes [#/volume] correc cherie for nucleated erythrocytes in Blood by Automated counOrdered By: Ajit Pettit on 02-09-2023 WBC corrected for nucl RBC Auto (Bld) [#/Vol] 13.2 10*3/uL 3.8-11.6 [facility] Lymphocytes Auto (Bld) [#/Vo l]Ordered By: Ajit Pettit on 02-09-2023 Lymphocytes (Bld) [#/Vol] 3.6 10*3/uL 1.00-4.8 [facility] Lymphocytes/100 WBC Auto (Bl d)Ordered By: Ajit Pettit on 02-09-2023 Lymphocytes/100 WBC (Bld) 27.3 % . [facility] MCH Auto (RBC) [Entitic mass ]Ordered By: Ajit Pettit on 02-09-2023 MCH (RBC) [Entitic mass] 29.5 pg 24.7-34.3 [facility] MCHC Auto (RBC) [Mass/Vol]Or dered By: Ajit Pettit on 02-09-2023 MCHC (RBC) [Mass/Vol] 33.1 g/dL 32.0-35.0 [facility] MCV Auto (RBC) [Entitic vol] Ordered By: Ajit Pettit on 02-09-2023 MCV (RBC) [Entitic vol] 89.3 fL 80-100 [facility] Monocytes Auto (Bld) [#/Vol] Ordered By: Ajit Pettit on 02-09-2023 Monocytes (Bld) [#/Vol] 0.9 10*3/uL 0.0-0.8 [facility] Monocytes/100 WBC Auto (Bld) Ordered By: Ajit Pettit on 02-09-2023 Monocytes/100 WBC (Bld) 7.0 % . [facility] Neutrophils Auto (Bld) [#/Vo l]Ordered By: Ajit Pettit on 02-09-2023 Neutrophils (Bld) [#/Vol] 8.5 10*3/uL 1.8-7.7 [facility] Neutrophils/100 WBC Auto (Bl d)Ordered By: Ajit Pettit on 02-09-2023 Neutrophils/100 WBC (Bld) 64.4 % . [facility] No Panel InformationOrdered By: Ajit Pettit on 02-09-2023 Estimated GFR (CKD-EPI) > 60.0 mL/Min [facility] Creatinine Clearance (Chem N/A [facility] Nucleated erythrocytes [Pres ence] in Blood by Automated countOrdered By: Ajit Pettit on 02-09-2023 Nucleated RBC Auto Ql (Bld) 0.0 /100{WBC} 0-0.5 [facility] Platelet mean volume Auto (B ld) [Entitic vol]Ordered By: Ajit Pettit on 02-09-2023 Platelet mean volume (Bld) [Entitic vol] 8.8 fL 6.3-10.7 [facility] Platelets Auto (Bld) [#/Vol] Ordered By: Ajit Pettit on 02-09-2023 Platelets (Bld) [#/Vol] 295 10*3/uL 150-450 [facility] Potassium [Moles/volume] in Serum or PlasmaOrdered By: Ajit Pettit on 02-09-2023 Potassium [Moles/Vol] 4.5 mmol/L 3.5-5.1 [facility] Protein [Mass/volume] in Ser um or PlasmaOrdered By: Ajit Pettit on 02-09-2023 Protein [Mass/Vol] 6.7 g/dL 6.4-8.9 [facility] RBC Auto (Bld) [#/Vol]Ordere d By: Ajit Pettit on 02-09-2023 RBC (Bld) [#/Vol] 4.44 10*6/uL 3.60-5.00 [facility] Serum or plasma albumin/glob ulin mass ratioOrdered By: Ajit Pettit on 02-09-2023 Albumin/Globulin [Mass ratio] 1.9 {ratio} [facility] Serum or plasma anion gap de terminationOrdered By: Ajit Pettit on 02-09-2023 Anion gap [Moles/Vol] 15.7 mmol/L 6.0-15.0 [facility] Serum or plasma high density lipoprotein (HDL) cholesterol measurementOrdered By: Ajit Pettit on 02-09-2023 Cholesterol in HDL [Mass/Vol] 41 mg/dL 35-85 [facility] Comment on above: HDL CHOL ATP-III CLA SSIFICATION Cardiovascular RiskHDL > or equal to 60 mg/dL LOWHDL < 40 mg/dL HIGH Serum or plasma total choles terol/high density lipoprotein (HDL) cholesterol mass ratOrdered By: Ajit Pettit on 02-09-2023 Cholesterol.total/Suellen sterol in HDL [Mass ratio] 4.0 {ratio} <5.0 [facility] Sodium [Moles/volume] in Ser um or PlasmaOrdered By: Ajit Pettit on 02-09-2023 Sodium [Moles/Vol] 136 mmol/L 136-145 [facility] Thyrotropin [Units/volume] i n Serum or PlasmaOrdered By: Ajit Pettit on 02-09-2023 TSH Qn 2.98 m[IU]/L 0.45-5.33 [facility] Triglyceride [Mass/volume] i n Serum or PlasmaOrdered By: Ajit Pettit on 02-09-2023 Triglyceride [Mass/Vol] 485 mg/dL 0-149 [facility] Comment on above: If the [...] 02-09-2023 Urea nitrogen [Mass/Vol] 10 mg/dL 7-25 [facility] Urine culture routineOrdered By: Ajit Pettit on 02-09-2023 Bacteria identified Cx Nom (U) 2 Days [facility] WBC Auto (Bld) [#/Vol]Ordere d By: Ajit Pettit on 02-09-2023 WBC (Bld) [#/Vol] 13.2 10*3/uL 3.8-11.6 [facility] ACETONE SERUMon 01-29-2023 ACETONE Negative Normal NEGATIVE [facility] Comment on above: Performed By: #### A CETON #### [facility] [address] [place] [address] Dr. Vito Grimm CBC AUTO DIFFon 01-29-2023 BASO # 0.1 103/ul Normal 0.0-0.1 [facility] Comment on above: Performed By: #### C BC #### [facility] [address] [place] [address] Dr. Vito Grimm Basophils/100 WBC (Bld) 0.5 % Normal 0.2-2.0 [facility] Comment on above: Performed By: #### C BC #### [facility] [address] [place] [address] Dr. Vito Grimm EO # 0.1 103/ul Normal 0.0-0.7 [facility] Comment on above: Performed By: #### C BC #### [facility] [address] [place] [address] Dr. Vito Grimm Eosinophils/100 WBC (Bld) 0.7 % Critically low 0.9-7.0 [facility] Comment on above: Performed By: #### C BC #### [facility] [address] [place] [address] Dr. Vito Grimm Erythrocyte distribution width (RBC) [Ratio] 12.9 % Normal 11.0-15.0 [facility] Comment on above: Performed By: #### C BC #### [facility] [address] [place] [address] Dr. Vito Grimm Hematocrit (Bld) [Volume fraction] 39.0 % Normal 36.0-48.0 [facility] Comment on above: Performed By: #### C BC #### [facility] [address] [place] [address] Dr. Vito Grimm Hemoglobin (Bld) [Mass/Vol] 13.1 g/dL Normal 12.0-16.0 [facility] Comment on above: Performed By: #### C BC #### [facility] [address] [place] [address] Dr. Vito Grimm IG # 0.11 10e3/ul Critically high 0.00-0.03 [facility] Comment on above: Performed By: #### C BC #### [facility] [address] [place] [address] Dr. Vito Grimm IG % 0.8 % Critically high 0.0-0.5 [facility] Comment on above: Performed By: #### C BC #### [facility] [address] [place] [address] Dr. Vito Grimm LYMPH # 4.6 103/ul Critically high 1.2-3.8 [facility] Comment on above: Performed By: #### C BC #### [facility] [address] [place] [address] Dr. Vito Grimm Lymphocytes/100 WBC (Bld) 34.4 % Normal 20.5-60.0 [facility] Comment on above: Performed By: #### C BC #### [facility] [address] [place] [address] Dr. Vito Grimm MANUAL DIFF REQ NO Normal [facility] Comment on above: Performed By: #### C BC #### [facility] [address] [place] [address] Dr. Vito Grimm MCH (RBC) [Entitic mass] 29.9 pg Normal 26.7-34.0 [facility] Comment on above: Performed By: #### C BC #### [facility] [address] [place] [address] Dr. Vito Grimm MCHC (RBC) [Mass/Vol] 33.6 g/dL Normal 29.9-35.2 [facility] Comment on above: Performed By: #### C BC #### [facility] [address] [place] [address] Dr. Vito Grimm MCV (RBC) [Entitic vol] 89.0 fL Normal 81.0-99.0 [facility] Comment on above: Performed By: #### C BC #### [facility] [address] [place] [address] Dr. Vito Grimm MONO # 1.0 103/ul Critically high 0.3-0.8 [facility] Comment on above: Performed By: #### C BC #### [facility] [address] [place] [address] Dr. Vito Grimm Monocytes/100 WBC (Bld) 7.3 % Normal 1.7-12.0 [facility] Comment on above: Performed By: #### C BC #### [facility] [address] [place] [address] Dr. Vito Grimm NEUT # 7.5 103/ul Critically high 1.4-6.5 [facility] Comment on above: Performed By: #### C BC #### [facility] [address] [place] [address] Dr. Vito Grimm Neutrophils/100 WBC (Bld) 56.3 % Normal 43.0-75.0 [facility] Comment on above: Performed By: #### C BC #### [facility] [address] [place] [address] Dr. Vito Grimm Platelet mean volume (Bld) [Entitic vol] 9.6 fL Normal 9.5-13.5 [facility] Comment on above: Performed By: #### C BC #### [facility] [address] [place] [address] Dr. Vito Grimm PLT 272 103/ul Normal 150-450 [facility] Comment on above: Performed By: #### C BC #### [facility] [address] [place] [address] Dr. Vito Grimm RBC 4.38 106/ul Normal 4.20-5.40 [facility] Comment on above: Performed By: #### C BC #### [facility] [address] [place] [address] Dr. Vito Grimm WBC 13.4 103/ul Critically high 4.0-11.0 [facility] Comment on above: Performed By: #### C BC #### [facility] [address] [place] [address] Dr. Vito Grimm ER URINE PROFILEon 3 Bilirubin Ql (U) Negative Normal NEGATIVE [facility] Comment on above: Performed By: #### E RUR #### [facility] [address] [place] [address] Dr. Vito Grimm Clarity (U) SL CLOUDY Abnormal CLEAR [facility] Comment on above: Performed By: #### E RUR #### [facility] [address] [place] [address] Dr. Vito Grimm Color (U) LT. YELLOW Normal YELLOW [facility] Comment on above: Performed By: #### E RUR #### [facility] [address] [place] [address] Dr. Vito Grimm ERUAHJulio C A micrscopic examina tion will be performed if indicated. Normal [facility] Comment on above: Performed By: #### E RUR #### [facility] [address] [place] [address] Dr. Vito Grimm Glucose Ql (U) >1000 Abnormal NEGATIVE [facility] Comment on above: Performed By: #### E RUR #### [facility] [address] [place] [address] Dr. Vito Grimm Hemoglobin Ql (U) Negative Normal NEGATIVE [facility] Comment on above: Performed By: #### E RUR #### [facility] [address] [place] [address] Dr. Vito Grimm Ketones Ql (U) Negative Normal NEGATIVE [facility] Comment on above: Performed By: #### E RUR #### [facility] [address] [place] [address] Dr. Vito Grimm LEUKOCYTES Negative Normal NEGATIVE [facility] Comment on above: Performed By: #### E RUR #### [facility] [address] [place] [address] Dr. Vito Grimm Nitrite Ql (U) Negative Normal NEGATIVE [facility] Comment on above: Performed By: #### E RUR #### [facility] [address] [place] [address] Dr. Vito Grimm pH (U) 5.5 [pH] Normal 5-9 [facility] Comment on above: Performed By: #### E RUR #### [facility] [address] [place] [address] Dr. Vito Grimm SPEC GRAVITY 1.010 Normal 1.005-<=1. 025 [facility] Comment on above: Performed By: #### E RUR #### [facility] [address] [place] [address] Dr. Vito Grimm UA PROTEIN Negative Normal NEGATIVE/ TRACE [facility] Comment on above: Performed By: #### E RUR #### [facility] [address] [place] [address] Dr. Vito Grimm UR MICRO IND NOT INDICATED Normal [facility] Comment on above: Performed By: #### E RUR #### [facility] [address] [place] [address] Dr. Vito Grimm Urobilinogen Qn (U) 0.2 {Helen'U}/dL Normal 0.2 - 1. 0 [facility] Comment on above: Performed By: #### E RUR #### [facility] [address] [place] [address] Dr. Vito Grimm POINT OF CARE GLUCOSEon 01-03 Glucose [Mass/Vol] 279 mg/dL Critically high 74-106 [facility] Comment on above: Performed By: #### P OCGLUC #### [facility] [address] [place] [address] Dr. Vito Grimm PROF 14(COMP METB)on 023 Albumin [Mass/Vol] 3.5 g/dL Normal 3.4-5.0 [facility] Comment on above: Performed By: #### C MATHIEU HSTROPN #### [facility] [address] [place] [address] Dr. Vito Grimm Albumin/Globulin [Mass ratio] 1.0 {ratio} Normal [facility] Comment on above: Performed By: #### C MATHIEU HSTROPN #### [facility] [address] [place] [address] Dr. Vito Grimm ALP [Catalytic activity/Vol] 85 U/L Normal 46-116 [facility] Comment on above: Performed By: #### C MP, HSTROPN #### [facility] [address] [address] [address] Vito Grimm ALT [Catalytic activity/Vol] 28 U/L Normal 14-59 [facility] Comment on above: Performed By: #### C MP, HSTROPN #### [facility] [address] [address] [address] Vito Grimm Anion gap [Moles/Vol] 15.9 mmol/L Normal [facility] Comment on above: Performed By: #### C MP, HSTROPN #### [facility] [address] [address] [address] Vito Grimm AST [Catalytic activity/Vol] 16 U/L Normal 15-37 [facility] Comment on above: Performed By: #### C MP, HSTROPN #### [facility] [address] [address] [address] Vito Grimm Bilirubin [Mass/Vol] 0.2 mg/dL Normal 0.2-1.0 [facility] Comment on above: Performed By: #### C MP, HSTROPN #### [facility] [address] [address] [address] Vito Grimm Calcium [Mass/Vol] 8.8 mg/dL Normal 8.5-10.1 [facility] Comment on above: Performed By: #### C MP, HSTROPN #### [facility] [address] [address] [address] Vito Grimm Chloride [Moles/Vol] 96 mmol/L Critically low 98-107 [facility] Comment on above: Performed By: #### C MP, HSTROPN #### [facility] [address] [address] [address] Vito Grimm CO2 [Moles/Vol] 24.1 mmol/L Normal 21.0-32.0 [facility] Comment on above: Performed By: #### C MP, HSTROPN #### [facility] [address] [address] [address] Vito Grimm Creatinine [Mass/Vol] 0.85 mg/dL Normal 0.55-1.02 [facility] Comment on above: Performed By: #### C MP, HSTROPN #### [facility] [address] [place] [address] Dr. Vito Grimm EGFR-AF [place] >60 Normal >=60 [facility] Comment on above: Performed By: #### C MP, HSTROPN #### [facility] [address] [place] [address] Dr. Vito Grimm EGFR-NON AF [place] >60 Normal >=60 [facility] Comment on above: Performed By: #### C MP, HSTROPN #### [facility] [address] [place] [address] Dr. Vito Grimm Globulin (S) [Mass/Vol] 3.6 g/dL Normal [facility] Comment on above: Performed By: #### C MP, HSTROPN #### [facility] [address] [place] [address] Dr. Vito Grimm Glucose [Mass/Vol] 350 mg/dL Critically high 74-106 [facility] Comment on above: Performed By: #### C MP, HSTROPN #### [facility] [address] [place] [address] Dr. Vito Grimm Potassium [Moles/Vol] 4.0 mmol/L Normal 3.5-5.1 [facility] Comment on above: Performed By: #### C MP, HSTROPN #### [facility] [address] [place] [address] Dr. Vito Grimm Protein [Mass/Vol] 7.1 g/dL Normal 6.4-8.2 [facility] Comment on above: Performed By: #### C MP, HSTROPN #### [facility] [address] [place] [address] Dr. Vito Grimm Sodium [Moles/Vol] 132 mmol/L Critically low 136-[address] [facility] Comment on above: Performed By: #### C MP, HSTROPN #### [facility] [address] [place] [address] Dr. Vito Grimm Urea nitrogen [Mass/Vol] 10.0 mg/dL Normal 7.0-18.0 [facility] Comment on above: Performed By: #### C MATHIEU, HSTROPN #### [facility] [address] [place] [address] Dr. Vito Grimm Urea nitrogen/Creatinine [Mass ratio] 11.8 mg/mg Normal [facility] Comment on above: Performed By: #### C MATHIEU, HSTROPN #### [facility] [address] [place] [address] Dr. Vito Grimm TROPONIN, HIGH SENSITIVITYon 01-29-2023 HSTROP <4.0 Normal 4.0-51.3 [facility] Comment on above: Result Comment: CUT- OFF POINTS HAVE BEEN ESTABLISHED BASED ON THE FOURTH UNIVERSAL DEFINITIONS OF MYOCARDIAL INFARCTION. THE UPPER REFERENCE LIMIT (URL) OF TROPONIN, DEFINED THE 99TH PERCENTILE OF cTnI DISTRIBUTION IN A REFERENCE POPULATION, HAS BEEN CONFIRMED THE DECISION THRESHOLD FOR RI DIAGNOSIS. Performed By: #### C MATHIEU, HSTROPN #### [facility] [address] [place] [address] Dr. Vito Grimm HCG ( test) IA.rapi d Ql (U)Ordered By: Kyler Miramontes on 11-18-2022 HCG ( test) Ql (U) Negative [facility] CBC AUTO DIFFon 11-12-2022 BASO # 0.1 103/ul Normal 0.0-0.1 [facility] Comment on above: Performed By: #### C MATHIEU, HSTROPN #### [facility] [address] [place] [address] Dr. Vito Grimm Basophils/100 WBC (Bld) 0.6 % Normal 0.2-2.0 [facility] Comment on above: Performed By: #### C MATHIEU, HSTROPN #### [facility] [address] [place] [address] Dr. Vito Grimm EO # 0.2 103/ul Normal 0.0-0.7 [facility] Comment on above: Performed By: #### C MATHIEU, HSTROPN #### [facility] [address] [address] [address] Vito Grimm Eosinophils/100 WBC (Bld) 1.1 % Normal 0.9-7.0 [facility] Comment on above: Performed By: #### C MATHIEU, HSTROPN #### [facility] [address] [place] [address] Dr. Vito Grimm Erythrocyte distribution width (RBC) [Ratio] 12.6 % Normal 11.0-15.0 [facility] Comment on above: Performed By: #### C MATHIEU, HSTROPN #### [facility] [address] [place] [address] Dr. Vito Grimm Hematocrit (Bld) [Volume fraction] 39.7 % Normal 36.0-48.0 [facility] Comment on above: Performed By: #### C MATHIEU, HSTROPN #### [facility] [address] [place] [address] Dr. Vito Grimm Hemoglobin (Bld) [Mass/Vol] 12.9 g/dL Normal 12.0-16.0 [facility] Comment on above: Performed By: #### C MATHIEU, HSTROPN #### [facility] [address] [place] [address] Dr. Vito Grimm IG # 0.07 10e3/ul Critically high 0.00-0.03 [facility] Comment on above: Performed By: #### C MATHIEU, HSTROPN #### [facility] [address] [place] [address] Dr. Vito Grimm IG % 0.5 % Normal 0.0-0.5 [facility] Comment on above: Performed By: #### C MATHIEU, HSTROPN #### [facility] [address] [place] [address] Dr. Vito Grimm LYMPH # 5.3 103/ul Critically high 1.2-3.8 [facility] Comment on above: Performed By: #### C MP, HSTROPN #### [facility] [address] [place] [address] Dr. Vito Grimm Lymphocytes/100 WBC (Bld) 38.4 % Normal 20.5-60.0 [facility] Comment on above: Performed By: #### C MP, HSTROPN #### [facility] [address] [place] [address] Dr. Vito Grimm MANUAL DIFF REQ NO Normal [facility] Comment on above: Performed By: #### C MP, HSTROPN #### [facility] [address] [place] [address] Dr. Vito Grimm MCH (RBC) [Entitic mass] 29.7 pg Normal 26.7-34.0 [facility] Comment on above: Performed By: #### C MP, HSTROPN #### [facility] [address] [place] [address] Dr. Vito Grimm MCHC (RBC) [Mass/Vol] 32.5 g/dL Normal 29.9-35.2 [facility] Comment on above: Performed By: #### C MP, HSTROPN #### [facility] [address] [place] [address] Dr. Vito Grimm MCV (RBC) [Entitic vol] 91.5 fL Normal 81.0-99.0 [facility] Comment on above: Performed By: #### C MP, HSTROPN #### [facility] [address] [place] [address] Dr. Vito Grimm MONO # 1.0 103/ul Critically high 0.3-0.8 [facility] Comment on above: Performed By: #### C MP, HSTROPN #### [facility] [address] [place] [address] Dr. Vito Grimm Monocytes/100 WBC (Bld) 7.3 % Normal 1.7-12.0 [facility] Comment on above: Performed By: #### C MP, HSTROPN #### [facility] [address] [place] [address] Dr. Vito Grimm NEUT # 7.2 103/ul Critically high 1.4-6.5 [facility] Comment on above: Performed By: #### C MP, HSTROPN #### [facility] [address] [place] [address] Dr. Vito Grimm Neutrophils/100 WBC (Bld) 52.1 % Normal 43.0-75.0 [facility] Comment on above: Performed By: #### C MP, HSTROPN #### [facility] [address] [place] [address] Dr. Vito Grimm Platelet mean volume (Bld) [Entitic vol] 9.4 fL Critically low 9.5-13.5 [facility] Comment on above: Performed By: #### C MP, HSTROPN #### [facility] [address] [place] [address] Dr. Vito Grimm PLT 297 103/ul Normal 150-450 [facility] Comment on above: Performed By: #### C MP, HSTROPN #### [facility] [address] [place] [address] Dr. Vito Grimm RBC 4.34 106/ul Normal 4.20-5.40 [facility] Comment on above: Performed By: #### C MP, HSTROPN #### [facility] [address] [place] [address] Dr. Vito Grimm WBC 13.9 103/ul Critically high 4.0-11.0 [facility] Comment on above: Performed By: #### C MP, HSTROPN #### [facility] [address] [place] [address] Dr. Vito Grimm DEPAKENE/ VALPROIC ACIDon DEPAKENE 55.9 ug/ml Normal 50.0-100.0 [facility] Comment on above: Performed By: #### V ALP #### [facility] [address] [place] [address] Dr. Vito Grimm LACTATE/LACTIC ACIDon 2022 Lactate [Moles/Vol] 3.6 mmol/L Critically high 0.4-1.9 [facility] Comment on above: Performed By: #### C MP, HSTROPN #### [facility] [address] [place] [address] Dr. Vito Grimm PROF 14(COMP METB)on 023 Albumin [Mass/Vol] 3.6 g/dL Normal 3.4-5.0 [facility] Comment on above: Performed By: #### C MATHIEU, HSTROPN #### [facility] [address] [address] [address] Vito Grimm Albumin/Globulin [Mass ratio] 1.1 {ratio} Normal [facility] Comment on above: Performed By: #### C MATHIEU, HSTROPN #### [facility] [address] [address] [address] Vito Grimm ALP [Catalytic activity/Vol] 57 U/L Normal 46-116 [facility] Comment on above: Performed By: #### C MATHIEU, HSTROPN #### [facility] [address] [address] [address] Vito Grimm ALT [Catalytic activity/Vol] 23 U/L Normal 14-59 [facility] Comment on above: Performed By: #### C MATHIEU, HSTROPN #### [facility] [address] [address] [address] Vito Grimm Anion gap [Moles/Vol] 17.0 mmol/L Normal [facility] Comment on above: Performed By: #### C MATHIEU, HSTROPN #### [facility] [address] [address] [address] Vito Grimm AST [Catalytic activity/Vol] 16 U/L Normal 15-37 [facility] Comment on above: Performed By: #### C MATHIEU, HSTROPN #### [facility] [address] [address] [address] Vito Grimm Bilirubin [Mass/Vol] 0.1 mg/dL Critically low 0.2-1.0 [facility] Comment on above: Performed By: #### C MATHIEU, HSTROPN #### [facility] [address] [address] [address] Vito Grimm Calcium [Mass/Vol] 8.8 mg/dL Normal 8.5-10.1 [facility] Comment on above: Performed By: #### C MATHIEU, HSTROPN #### [facility] [address] [address] [address] Vito Grimm Chloride [Moles/Vol] 101 mmol/L Normal 98-107 [facility] Comment on above: Performed By: #### C MP, HSTROPN #### [facility] [address] [address] [address] Vito Grimm CO2 [Moles/Vol] 23.5 mmol/L Normal 21.0-32.0 [facility] Comment on above: Performed By: #### C MP, HSTROPN #### [facility] [address] [address] [address] Vito Grimm Creatinine [Mass/Vol] 0.72 mg/dL Normal 0.55-1.02 [facility] Comment on above: Performed By: #### C MP, HSTROPN #### [facility] [address] [place] [address] Dr. Vito Grimm EGFR-AF [place]LANDER >60 Normal >=60 [facility] Comment on above: Performed By: #### C MP, HSTROPN #### [facility] [address] [address] [address] Vito Grimm EGFR-NON AF [place] >60 Normal >=60 [facility] Comment on above: Performed By: #### C MP, HSTROPN #### [facility] [address] [address] [address] Vito Grimm Globulin (S) [Mass/Vol] 3.4 g/dL Normal [facility] Comment on above: Performed By: #### C MP, HSTROPN #### [facility] [address] [address] [address] Vito Grimm Glucose [Mass/Vol] 146 mg/dL Critically high 74-106 [facility] Comment on above: Performed By: #### C MP, HSTROPN #### [facility] [address] [address] [address] Vito Grimm Potassium [Moles/Vol] 4.5 mmol/L Normal 3.5-5.1 [facility] Comment on above: Performed By: #### C MP, HSTROPN #### [facility] [address] [address] [address] Vito Grimm Protein [Mass/Vol] 7.0 g/dL Normal 6.4-8.2 [facility] Comment on above: Performed By: #### C MP, HSTROPN #### [facility] [address] [address] [address] Vtio Grimm Sodium [Moles/Vol] 137 mmol/L Normal 136-145 [facility] Comment on above: Performed By: #### C MP, HSTROPN #### [facility] [address] [place] [address] Dr. Vito Grimm Urea nitrogen [Mass/Vol] 11.0 mg/dL Normal 7.0-18.0 [facility] Comment on above: Performed By: #### C MP, HSTROPN #### [facility] [address] [place] [address] Dr. Vito Grimm Urea nitrogen/Creatinine [Mass ratio] 15.3 mg/mg Normal [facility] Comment on above: Performed By: #### C MP, HSTROPN #### [facility] [address] [place] [address] Dr. Vito Grimm Albumin [Mass/volume] in Ser um or PlasmaOrdered By: Ajit Pettit on 11-05-2022 Albumin [Mass/Vol] 4.2 g/dL 3.2-5.5 [facility] Basophils Auto (Bld) [#/Vol] Ordered By: Ajit Millanc on 11-05-2022 Basophils (Bld) [#/Vol] 0.1 10*3/uL 0.0-0.2 [facility] Basophils/100 WBC Auto (Bld) Ordered By: Ajit Millanc on 11-05-2022 Basophils/100 WBC (Bld) 0.8 % . [facility] Cholesterol [Mass/volume] in Serum or PlasmaOrdered By: Ajit Pettit on 11-05-2022 Cholesterol [Mass/Vol] 174 mg/dL 140-200 [facility] Comment on above: Chol less than 200 m g/dl low riskChol 201-239 mg/dl borderline riskChol 240 mg/dl and greater high risk Cholesterol in LDL Calc [Mas s/Vol]Ordered By: Ajit Pettit on 11-05-2022 Cholesterol in LDL [Mass/Vol] 66 mg/dL 0-100 [facility] Comment on above: LDL ATP III CLASSIFI CATIONLDL less than 100 mg/dL OptimalLDL 100-129 mg/dL Near or above optimalLDL 130-159 mg/dL Borderline highLDL 160-189 mg/dL HighLDL greater than 189 mg/dL Very high Cholesterol in VLDL Calc [Ma ss/Vol]Ordered By: Ajit Pettit on 11-05-2022 Cholesterol in VLDL [Mass/Vol] 66 mg/dL [facility] Creatinine and Glomerular fi ltration rate.predicted panel (S/P/Bld)Ordered By: Ajit Pettit on 11-05-2022 Creatinine [Mass/Vol] 0.57 mg/dL 0.44-1.03 [facility] Eosinophils Auto (Bld) [#/Vo l]Ordered By: Ajit Pettit on 11-05-2022 Eosinophils (Bld) [#/Vol] 0.1 10*3/uL 0.0-0.45 [facility] Eosinophils/100 WBC Auto (Bl d)Ordered By: Aijt Pettit on 11-05-2022 Eosinophils/100 WBC (Bld) 0.7 % . [facility] Erythrocyte distribution wid th Auto (RBC) [Ratio]Ordered By: Ajit Pettit on 11-05-2022 Erythrocyte distribution width (RBC) [Ratio] 13.5 % 11.9-15.3 [facility] Estimated glomerular filtrat ion rate (GFR) non- AmericanOrdered By: Ajit Pettit on 11-05-2022 GFR/1.73 sq M.predicted among non-blacks MDRD (S/P/Bld) [Vol rate/Area] > 60 mL/Min [facility] Globulin Calc (S) [Mass/Vol] Ordered By: Ajit Pettit on 11-05-2022 Globulin (S) [Mass/Vol] 2.6 g/dL [facility] Glucose mean value [Mass/vol ume] in Blood Estimated from glycated hemoglobinOrdered By: Ajit Pettit on 11-05-2022 Average glucose Estimated from glycated hemoglobin (Bld) [Mass/Vol] 143 mg/dL [facility] HPV 16+18+31+33+35+39+45+51+ 52+56+58+59+68 DNA cervix probe + signal amplificOrdered By: Ajit Pettit on 11-05-2022 HPV 16+18+31+33+35+39+45+51 +52+56+58+59+68 DNA Probe+sig amp Ql (Cvx) Positive Negative [facility] Comment on above: This nucleic acid am plification test detects fourteen high-risk HPV types (16,18,31,33,35,39,45,51,52,56,58,59,66,68)without differentiation. Hematocrit Auto (Bld) [Volum e fraction]Ordered By: Ajit Pettit on 11-05-2022 Hematocrit (Bld) [Volume fraction] 40.1 % 34.0-46.4 [facility] Hemoglobin A1c percentageOrd ered By: Ajit Pettit on 11-05-2022 HbA1c (Bld) [Mass fraction] 6.6 % 4.3-5.6 [facility] Comment on above: Increased risk for d iabetes: 5.7 - 6.4diabetes: >6.4glycemic control for adults with diabetes: <7.0 Hemoglobin [Mass/volume] in BloodOrdered By: Ajit Pettit on 11-05-2022 Hemoglobin (Bld) [Mass/Vol] 13.2 g/dL 11.8-15.4 [facility] - Microbiology an d Antimicrobial susceptibilityOrdered By: Ajit Pettit on 11-05-2022 N. gonorrhoeae DNA NAYELY+probe Ql (Unsp spec) Negative Negative [facility] Comment on above: Performed at: =G - [address] [id number] Director: Breanna Clark MD, Phone: [phone] Leukocytes [#/volume] correc cherie for nucleated erythrocytes in Blood by Automated counOrdered By: Ajit Pettit on 11-05-2022 WBC corrected for nucl RBC Auto (Bld) [#/Vol] 13.7 10*3/uL 3.8-11.6 [facility] Lymphocytes Auto (Bld) [#/Vo l]Ordered By: Ajit Pettit on 11-05-2022 Lymphocytes (Bld) [#/Vol] 5.1 10*3/uL 1.00-4.8 [facility] Lymphocytes/100 WBC Auto (Bl d)Ordered By: Ajit Pettit on 11-05-2022 Lymphocytes/100 WBC (Bld) 37.3 % . [facility] MCH Auto (RBC) [Entitic mass ]Ordered By: Ajit Pettit on 11-05-2022 MCH (RBC) [Entitic mass] 29.5 pg 24.7-34.3 [facility] MCHC Auto (RBC) [Mass/Vol]Or dered By: Ajit Pettit on 11-05-2022 MCHC (RBC) [Mass/Vol] 32.8 g/dL 32.0-35.0 [facility] MCV Auto (RBC) [Entitic vol] Ordered By: Ajit Pettit on 11-05-2022 MCV (RBC) [Entitic vol] 90.0 fL 80-100 [facility] Microcytes LM Ql (Bld)Ordere d By: Ajit Pettit on 11-05-2022 Microcytes Ql (Bld) Slight [facility] Monocytes Auto (Bld) [#/Vol] Ordered By: Ajit Pettit on 11-05-2022 Monocytes (Bld) [#/Vol] 1.1 10*3/uL 0.0-0.8 [facility] Monocytes/100 WBC Auto (Bld) Ordered By: Ajit Millanc on 11-05-2022 Monocytes/100 WBC (Bld) 8.3 % . [facility] Neutrophils Auto (Bld) [#/Vo l]Ordered By: Ajit Millanc on 11-05-2022 Neutrophils (Bld) [#/Vol] 7.3 10*3/uL 1.8-7.7 [facility] Neutrophils/100 WBC Auto (Bl d)Ordered By: Ajit Pettit on 11-05-2022 Neutrophils/100 WBC (Bld) 52.9 % . [facility] No Panel InformationOrdered By: Ajit Pettit on 11-05-2022 25-Hydroxy Vitamin D Total 28.8 ng/mL 30-100 [facility] Comment on above: VITAMIN D STATUS 25( [place])VITAMIN D RANGE (ng/mL) Deficient <20 Insufficient 20 to <30Sufficient 30 to 100Reference: Jovanni MF,Dominique ARORA, Gillian NINA, et al. Evaluation,treatment, and prevention of vitamin D deficiency; an Endocrine Society clinical practice guideline. JCEM. 2010; 96(7):1911-30. Luz Elena albicans (NAYELY) Negative Negative [facility] Comment on above: This test was develo ped and its performance characteristicsdetermined by [employer]. It has not been cleared orapproved by the Food and Drug Administration. Luz Elena glabrata (NAYELY) Negative Negative [facility] Comment on above: This test was develo ped and its performance characteristicsdetermined by [employer]. It has not been cleared orapproved by the Food and Drug Administration. Chlamydia trachomatis (NAYELY) (LAB) Negative Negative [facility] Estimated GFR () > 60 mL/Min [facility] Comment on above: GFR estimated refere nce range: According to KDOQI guidelines, <60 ml/min/1.73m2 is sufficient to diagnose a patient with chronic kidney disease. Human Papilloma Virus Type 16 Negative Negative [facility] Human Papilloma Virus Type 18/45 Negative Negative [facility] Comment on above: Performed at: =G - [facility] [address] [id number] Director: Breanna Clark MD, Phone: [phone] at: WB - [facility] [address] [id number] Director: Breanna Clark MD, Phone: [phone] IG Pap w/Ct-Ng Age Based (Off-Site) Note . [facility] Comment on above: TESTS RESULT FLAG UN ITS REF RANGE LAB - Clinician Provided Cytology Information No. of containers..01 ThinPrep VialAge Brian TATE Monisha... 30 FLAG LEGEND: L-Low Normal,H-High Normal,LL-Alert Low,HH-Alert High <-Panic Low,>-Panic High,A-Abnormal,AA-Critical Abnormal ------Performed at:01 =G [facility] [address] [place] [address] Breanna Clark MD, Pharmacy Creatinine Clearance (Chem N/A [facility] Thin Prep Pap Comment Note . [facility] Comment on above: TESTS RESULT FLAG UN ITS REF RANGE LAB -DIAGNOSIS: 02 NEGATIVE FOR INTRAEPITHELIAL LESION OR MALIGNANCY. THIS SPECIMEN WAS RESCREENED PART OF OUR CHEMICAL MANAGER PROGRAM.Specimen adequacy: 02 Satisfactory for evaluation. Endocervical and/or squamous metaplastic cells (endocervical component) are present.Performed by: 02 Larry Mirza, Geodetic Surveyor Technologist ([facility])QC reviewed by: 02 Sammie Thomason, Supervisory Geodetic Surveyor Technologist ([facility]). 02Note: Note 02 The Pap smear [...] High <-Panic Low,>-Panic High,A-Abnormal,AA-Critical Abnormal ------Performed at:[address] [id number] Breanna Clark MD, Trichomonas vaginalis (NAYELY) Negative Negative [facility] Nucleated erythrocytes [Pres ence] in Blood by Automated countOrdered By: Ajit Pettit on 11-05-2022 Nucleated RBC Auto Ql (Bld) 0.1 /100{WBC} 0-0.5 [facility] Platelet adequacy [Presence] in Blood by Light microscopyOrdered By: Ajit Pettit on 11-05-2022 Platelets LM Ql (Bld) Normal Normal [facility] Platelet mean volume Auto (B ld) [Entitic vol]Ordered By: Ajit Pettit on 11-05-2022 Platelet mean volume (Bld) [Entitic vol] 9.1 fL 6.3-10.7 [facility] Platelet morphology finding [Identifier] in BloodOrdered By: Ajit Pettit on 11-05-2022 Platelet morphology finding Nom (Bld) N/A [facility] Platelets Auto (Bld) [#/Vol] Ordered By: Ajit Pettit on 11-05-2022 Platelets (Bld) [#/Vol] 304 10*3/uL 150-450 [facility] Platelets Large [Presence] i n Blood by Light microscopyOrdered By: Ajit Pettit on 11-05-2022 Platelets Large LM Ql (Bld) Slight [facility] Polychromasia [Presence] in Blood by Light microscopyOrdered By: Ajit Pettit on 11-05-2022 Polychromasia LM Ql (Bld) Slight [facility] Protein [Mass/volume] in Ser um or PlasmaOrdered By: Ajit Pettit on 11-05-2022 Protein [Mass/Vol] 6.8 g/dL 6.1-7.9 [facility] RBC Auto (Bld) [#/Vol]Ordere d By: Ajit Pettit on 11-05-2022 RBC (Bld) [#/Vol] 4.46 10*6/uL 3.60-5.00 [facility] RBC morphologyOrdered By: Shelbi Pettit on 11-05-2022 RBC morphology finding Nom (Bld) N/A [facility] Serum or plasma alanine george otransferase measurement without P-5'-P (enzymatic activiOrdered By: Ajit Pettit on 11-05-2022 ALT No additional P-5'-P [Catalytic activity/Vol] 16 U/L 10-60 [facility] Serum or plasma albumin/glob ulin mass ratioOrdered By: Ajit Pettit on 11-05-2022 Albumin/Globulin [Mass ratio] 1.6 {ratio} [facility] Serum or plasma alkaline lalo sphatase measurement (enzymatic activity/volume)Ordered By: Ajit Pettit on 11-05-2022 ALP [Catalytic activity/Vol] 52 U/L 32-92 [facility] Serum or plasma anion gap de terminationOrdered By: Ajit Pettit on 11-05-2022 Anion gap [Moles/Vol] 14.2 mmol/L 6.0-15.0 [facility] Serum or plasma aspartate am inotransferase measurement (enzymatic activity/volume)Ordered By: Ajit Pettit on 11-05-2022 AST [Catalytic activity/Vol] 20 U/L 10-42 [facility] Serum or plasma calcium ashwini urement (mass/volume)Ordered By: Ajit Pettit on 11-05-2022 Calcium [Mass/Vol] 9.3 mg/dL 8.2-10.2 [facility] Serum or plasma chloride jett surement (moles/volume)Ordered By: Ajit Pettit on 11-05-2022 Chloride [Moles/Vol] 99 mmol/L 95-114 [facility] Serum or plasma glucose ashwini urement (mass/volume)Ordered By: Ajit Pettit on 11-05-2022 Glucose [Mass/Vol] 96 mg/dL 70-100 [facility] Comment on above: ADA recommended refe rence rangeRandom Glucose Reference Range is dependent on time and content of last meal. Glucose of more than 200 mg/dL in a nonstressed, ambulatory subject supports the diagnosis of Diabetes Mellitus. Serum or plasma high density lipoprotein (HDL) cholesterol measurementOrdered By: Ajit Pettit on 11-05-2022 Cholesterol in HDL [Mass/Vol] 42 mg/dL 35-85 [facility] Comment on above: HDL CHOL ATP-III CLA SSIFICATION Cardiovascular RiskHDL > or equal to 60 mg/dL LOWHDL < 40 mg/dL HIGH Serum or plasma potassium me asurement (moles/volume)Ordered By: Ajit Pettit on 11-05-2022 Potassium [Moles/Vol] 4.3 mmol/L 3.5-5.1 [facility] Serum or plasma sodium measu rement (moles/volume)Ordered By: Ajit Pettit on 11-05-2022 Sodium [Moles/Vol] 132 mmol/L 136-146 [facility] Serum or plasma total biliru bin measurement (mass/volume)Ordered By: Ajit Pettit on 11-05-2022 Bilirubin [Mass/Vol] 0.3 mg/dL 0.3-1.2 [facility] Serum or plasma total carbon dioxide measurement (moles/volume)Ordered By: Ajit Pettit on 11-05-2022 CO2 [Moles/Vol] 23.1 mmol/L 22.0-30.0 [facility] Serum or plasma total choles terol/high density lipoprotein (HDL) cholesterol mass ratOrdered By: Ajit Pettit on 11-05-2022 Cholesterol.total/Suellen sterol in HDL [Mass ratio] 4.1 {ratio} <5.0 [facility] Serum or plasma urea nitroge n measurement (mass/volume)Ordered By: Ajit Pettit on 11-05-2022 Urea nitrogen [Mass/Vol] 7 mg/dL 9-23 [facility] TSH DL <= 0.005 mIU/L QnOrde red By: Ajit Pettit on 11-05-2022 TSH Qn 4.07 m[IU]/L 0.45-5.33 [facility] Triglyceride [Mass/volume] i n Serum or PlasmaOrdered By: Ajit Pettit on 11-05-2022 Triglyceride [Mass/Vol] 330 mg/dL 35-149 [facility] Comment on above: TRIG ATP III CLASSIF ICATIONTRIG less than 150 mg/dL NormalTRIG 150-199 mg/dL Borderline highTRIG 200-500 mg/dL High TRIG greater than 500 mg/dL Very highStandard traceable to the Center for Disease Conrtrol and Prevention (CDC) test method. Urine culture routineOrdered By: Ajit Pettit on 11-05-2022 Bacteria identified Cx Nom (U) No Growth 2 Days [facility] Vaginal fluid Atopobium vagi rich DNA detection by probe and target amplification methoOrdered By: Ajit Pettit on 11-05-2022 A. vaginae DNA NAYELY+probe Ql (Vag fld) Low - 0 Score . [facility] Vaginal fluid Megasphaera sp ecies type 1 DNA detection by probe and target amplificatOrdered By: Ajit Pettit on 11-05-2022 Megasphaera sp type 1 DNA NAYELY+probe Ql (Vag fld) Low - 0 Score . [facility] Comment on above: Calculate total [...] (Vag fld) Low - 0 Score . [facility] WBC Auto (Bld) [#/Vol]Ordere d By: Ajit Pettit on 11-05-2022 WBC (Bld) [#/Vol] 13.7 10*3/uL 3.8-11.6 [facility] Basophils Auto (Bld) [#/Vol] Ordered By: Ajit Pettit on 07-08-2022 Basophils (Bld) [#/Vol] 0.1 10*3/uL 0.0-0.2 [facility] Basophils/100 WBC Auto (Bld) Ordered By: Ajit Pettit on 07-08-2022 Basophils/100 WBC (Bld) 0.4 % . [facility] Blood hemoglobin measurement (mass/volume)Ordered By: Ajit Pettit on 07-08-2022 Hemoglobin (Bld) [Mass/Vol] 12.7 g/dL 11.8-15.4 [facility] Blood leukocytes automated c ount (number/volume)Ordered By: Ajit Pettit on 07-08-2022 WBC (Bld) [#/Vol] 14.3 10*3/uL 4.5-11.0 [facility] Body fluid albumin measureme nt (mass/volume)Ordered By: Ajit Pettit on 07-08-2022 Albumin (Body fld) [Mass/Vol] 3.6 g/dL 3.2-5.5 [facility] Creatinine and Glomerular fi ltration rate.predicted panel (S/P/Bld)Ordered By: Ajit Pettit on 07-08-2022 Creatinine [Mass/Vol] 0.66 mg/dL 0.44-1.03 [facility] Eosinophils Auto (Bld) [#/Vo l]Ordered By: Ajit Pettit on 10-05-2022 Eosinophils (Bld) [#/Vol] 0.2 10*3/uL 0.0-0.45 [facility] Eosinophils/100 WBC Auto (Bl d)Ordered By: Ajit Pettit on 07-08-2022 Eosinophils/100 WBC (Bld) 1.2 % . [facility] Erythrocyte distribution wid th Auto (RBC) [Ratio]Ordered By: Ajit Pettit on 07-08-2022 Erythrocyte distribution width (RBC) [Ratio] 13.5 % 11.9-15.3 [facility] Estimated glomerular filtrat ion rate (GFR) non- AmericanOrdered By: Ajit Pettit on 07-08-2022 GFR/1.73 sq M.predicted among non-blacks MDRD (S/P/Bld) [Vol rate/Area] > 60 mL/Min [facility] Globulin Calc (S) [Mass/Vol] Ordered By: Ajit Pettit on 07-08-2022 Globulin (S) [Mass/Vol] 2.4 g/dL [facility] Hematocrit Auto (Bld) [Volum e fraction]Ordered By: Ajit Pettit on 07-08-2022 Hematocrit (Bld) [Volume fraction] 38.9 % 34.0-46.4 [facility] Laboratory - Hematology and Cell countsOrdered By: Ajit Pettit on 07-08-2022 Nucleated RBC/100 WBC (Bld) [Ratio] 0.0 % 0-0.5 [facility] Lymphocytes Auto (Bld) [#/Vo l]Ordered By: Ajit Pettit on 07-08-2022 Lymphocytes (Bld) [#/Vol] 4.5 10*3/uL 1.00-4.8 [facility] Lymphocytes/100 WBC Auto (Bl d)Ordered By: Ajit Pettit on 07-08-2022 Lymphocytes/100 WBC (Bld) 31.2 % . [facility] MCH Auto (RBC) [Entitic mass ]Ordered By: Ajit Pettit on 07-08-2022 MCH (RBC) [Entitic mass] 29.7 pg 24.7-34.3 [facility] MCHC Auto (RBC) [Mass/Vol]Or dered By: Ajit Pettit on 07-08-2022 MCHC (RBC) [Mass/Vol] 32.7 g/dL 32.0-35.0 [facility] MCV Auto (RBC) [Entitic vol] Ordered By: Ajit Pettit on 07-08-2022 MCV (RBC) [Entitic vol] 90.8 fL 80-100 [facility] Monocytes Auto (Bld) [#/Vol] Ordered By: Ajit Pettit on 07-08-2022 Monocytes (Bld) [#/Vol] 1.1 10*3/uL 0.0-0.8 [facility] Monocytes/100 WBC Auto (Bld) Ordered By: Ajit Pettit on 07-08-2022 Monocytes/100 WBC (Bld) 7.8 % . [facility] Neutrophils Auto (Bld) [#/Vo l]Ordered By: Ajit Pettit on 07-08-2022 Neutrophils (Bld) [#/Vol] 8.5 10*3/uL 1.8-7.7 [facility] Neutrophils/100 WBC Auto (Bl d)Ordered By: Ajit Pettit on 07-08-2022 Neutrophils/100 WBC (Bld) 59.4 % . [facility] No Panel InformationOrdered By: Ajit Pettit on 07-08-2022 Estimated GFR () > 60 mL/Min [facility] Comment on above: GFR estimated refere nce range: According to KDOQI guidelines, <60 ml/min/1.73m2 is sufficient to diagnose a patient with chronic kidney disease. Pharmacy Creatinine Clearance (Chem N/A [facility] Platelet mean volume Auto (B ld) [Entitic vol]Ordered By: Ajit Pettit on 07-08-2022 Platelet mean volume (Bld) [Entitic vol] 8.3 fL 6.3-10.7 [facility] Platelets Auto (Bld) [#/Vol] Ordered By: Ajit Pettit on 07-08-2022 Platelets (Bld) [#/Vol] 332 10*3/uL 150-450 [facility] Protein [Mass/volume] in Ser um or PlasmaOrdered By: Ajit Pettit on 07-08-2022 Protein [Mass/Vol] 6.0 g/dL 6.1-7.9 [facility] RBC Auto (Bld) [#/Vol]Ordere d By: Ajit Pettit on 07-08-2022 RBC (Bld) [#/Vol] 4.29 10*6/uL 3.60-5.00 [facility] Serum or plasma alanine george otransferase measurement without P-5'-P (enzymatic activiOrdered By: Ajit Pettit on 07-08-2022 ALT No additional P-5'-P [Catalytic activity/Vol] 26 U/L 10-60 [facility] Serum or plasma albumin/glob ulin mass ratioOrdered By: Ajit Pettit on 07-08-2022 Albumin/Globulin [Mass ratio] 1.5 {ratio} [facility] Serum or plasma alkaline lalo sphatase measurement (enzymatic activity/volume)Ordered By: Ajit Pettit on 07-08-2022 ALP [Catalytic activity/Vol] 46 U/L 32-92 [facility] Serum or plasma anion gap de terminationOrdered By: Ajit Pettit on 07-08-2022 Anion gap [Moles/Vol] 15.1 mmol/L 6.0-15.0 [facility] [place] Serum or plasma aspartate am inotransferase measurement (enzymatic activity/volume)Ordered By: Ajit Pettit on 07-08-2022 AST [Catalytic activity/Vol] 31 U/L 10-42 [facility] Serum or plasma calcium ashwini urement (mass/volume)Ordered By: Ajit Pettit on 07-08-2022 Calcium [Mass/Vol] 9.3 mg/dL 8.2-10.2 [facility] Serum or plasma chloride jett surement (moles/volume)Ordered By: Ajit Pettit on 07-08-2022 Chloride [Moles/Vol] 101 mmol/L 95-114 [facility] Serum or plasma glucose ashwini urement (mass/volume)Ordered By: Ajit Pettit on 07-08-2022 Glucose [Mass/Vol] 129 mg/dL 70-100 [facility] Comment on above: ADA recommended refe rence rangeRandom Glucose Reference Range is dependent on time and content of last meal. Glucose of more than 200 mg/dL in a nonstressed, ambulatory subject supports the diagnosis of Diabetes Mellitus. Serum or plasma potassium me asurement (moles/volume)Ordered By: Ajit Pettit on 07-08-2022 Potassium [Moles/Vol] 5.0 mmol/L 3.5-5.1 [facility] Serum or plasma sodium measu rement (moles/volume)Ordered By: Ajit Pettit on 07-08-2022 Sodium [Moles/Vol] 135 mmol/L 136-146 [facility] Serum or plasma total biliru bin measurement (mass/volume)Ordered By: Ajit Pettit on 07-08-2022 Bilirubin [Mass/Vol] 0.5 mg/dL 0.3-1.2 [facility] Serum or plasma total carbon dioxide measurement (moles/volume)Ordered By: Ajit Pettit on 07-08-2022 CO2 [Moles/Vol] 23.9 mmol/L 22.0-30.0 [facility] [place] Serum or plasma urea nitroge n measurement (mass/volume)Ordered By: Ajit Pettit on 07-08-2022 Urea nitrogen [Mass/Vol] 12 mg/dL 9-23 [facility] TSH DL <= 0.005 mIU/L QnOrde red By: Ajit Pettit on 06-24-2022 TSH Qn 4.14 m[IU]/L 0.45-5.33 [facility] Basophils Auto (Bld) [#/Vol] Ordered By: Ajit Pettit on 06-02-2022 Basophils (Bld) [#/Vol] 0.1 10*3/uL 0.0-0.2 [facility] Basophils/100 WBC Auto (Bld) Ordered By: Ajit Pettit on 06-02-2022 Basophils/100 WBC (Bld) 0.9 % . [facility] Blood hemoglobin measurement (mass/volume)Ordered By: Ajit Pettit on 06-02-2022 Hemoglobin (Bld) [Mass/Vol] 12.9 g/dL 11.8-15.4 [facility] Blood leukocytes automated c ount (number/volume)Ordered By: Ajit Pettit on 06-02-2022 WBC (Bld) [#/Vol] 16.8 10*3/uL 4.5-11.0 [facility] Body fluid albumin measureme nt (mass/volume)Ordered By: Ajit Pettit on 06-02-2022 Albumin (Body fld) [Mass/Vol] 3.5 g/dL 3.2-5.5 [facility] Creatinine and Glomerular fi ltration rate.predicted panel (S/P/Bld)Ordered By: Ajit Pettit on 06-02-2022 Creatinine [Mass/Vol] 0.58 mg/dL 0.44-1.03 [facility] Eosinophils Auto (Bld) [#/Vo l]Ordered By: Ajit Pettit on 06-02-2022 Eosinophils (Bld) [#/Vol] 0.1 10*3/uL 0.0-0.45 [facility] Eosinophils/100 WBC Auto (Bl d)Ordered By: Ajit Pettit on 06-02-2022 Eosinophils/100 WBC (Bld) 0.7 % . [facility] Erythrocyte distribution wid th Auto (RBC) [Ratio]Ordered By: Ajit Pettit on 06-02-2022 Erythrocyte distribution width (RBC) [Ratio] 13.3 % 11.9-15.3 [facility] Estimated glomerular filtrat ion rate (GFR) non- AmericanOrdered By: Ajit Pettit on 06-02-2022 GFR/1.73 sq M.predicted among non-blacks MDRD (S/P/Bld) [Vol rate/Area] > 60 mL/Min [facility] Globulin Calc (S) [Mass/Vol] Ordered By: Ajit Pettit on 06-02-2022 Globulin (S) [Mass/Vol] 2.5 g/dL [facility] Hematocrit Auto (Bld) [Volum e fraction]Ordered By: Ajit Pettit on 06-02-2022 Hematocrit (Bld) [Volume fraction] 38.8 % 34.0-46.4 [facility] Laboratory - Hematology and Cell countsOrdered By: Ajit Polosic on 06-02-2022 Nucleated RBC/100 WBC (Bld) [Ratio] 0.0 % 0-0.5 [facility] Lymphocytes Auto (Bld) [#/Vo l]Ordered By: Ajit Spasic on 06-02-2022 Lymphocytes (Bld) [#/Vol] 3.4 10*3/uL 1.00-4.8 [facility] Lymphocytes/100 WBC Auto (Bl d)Ordered By: Ajit Spasic on 06-02-2022 Lymphocytes/100 WBC (Bld) 20.3 % . [facility] MCH Auto (RBC) [Entitic mass ]Ordered By: Ajit Spasic on 06-02-2022 MCH (RBC) [Entitic mass] 30.3 pg 24.7-34.3 [facility] MCHC Auto (RBC) [Mass/Vol]Or dered By: Ajit Spasic on 06-02-2022 MCHC (RBC) [Mass/Vol] 33.2 g/dL 32.0-35.0 [facility] MCV Auto (RBC) [Entitic vol] Ordered By: Ajit Spasic on 06-02-2022 MCV (RBC) [Entitic vol] 91.1 fL 80-100 [facility] Monocytes Auto (Bld) [#/Vol] Ordered By: Ajit Spasic on 06-02-2022 Monocytes (Bld) [#/Vol] 1.2 10*3/uL 0.0-0.8 [facility] Monocytes/100 WBC Auto (Bld) Ordered By: Ajit Spasic on 06-02-2022 Monocytes/100 WBC (Bld) 7.2 % . [facility] Neutrophils Auto (Bld) [#/Vo l]Ordered By: Ajit Spasic on 06-02-2022 Neutrophils (Bld) [#/Vol] 11.9 10*3/uL 1.8-7.7 [facility] Neutrophils/100 WBC Auto (Bl d)Ordered By: Ajit Spasic on 06-02-2022 Neutrophils/100 WBC (Bld) 70.9 % . [facility] No Panel InformationOrdered By: Ajit Spasic on 06-02-2022 Estimated GFR () > 60 mL/Min [facility] Comment on above: GFR estimated refere nce range: According to KDOQI guidelines, <60 ml/min/1.73m2 is sufficient to diagnose a patient with chronic kidney disease. Pharmacy Creatinine Clearance (Chem N/A [facility] Platelet mean volume Auto (B ld) [Entitic vol]Ordered By: Ajit Pettit on 06-02-2022 Platelet mean volume (Bld) [Entitic vol] 9.2 fL 6.3-10.7 [facility] Platelets Auto (Bld) [#/Vol] Ordered By: Ajit Pettit on 06-02-2022 Platelets (Bld) [#/Vol] 313 10*3/uL 150-450 [facility] Protein [Mass/volume] in Ser um or PlasmaOrdered By: Ajit Pettit on 06-02-2022 Protein [Mass/Vol] 6.0 g/dL 6.1-7.9 [facility] RBC Auto (Bld) [#/Vol]Ordere d By: Ajit Pettit on 06-02-2022 RBC (Bld) [#/Vol] 4.26 10*6/uL 3.60-5.00 [facility] Serum or plasma alanine george otransferase measurement without P-5'-P (enzymatic activiOrdered By: Ajit Pettit on 06-02-2022 ALT No additional P-5'-P [Catalytic activity/Vol] 20 U/L 10-60 [facility] Serum or plasma albumin/glob ulin mass ratioOrdered By: Ajit Pettit on 06-02-2022 Albumin/Globulin [Mass ratio] 1.4 {ratio} [facility] Serum or plasma alkaline lalo sphatase measurement (enzymatic activity/volume)Ordered By: Ajit Pettit on 06-02-2022 ALP [Catalytic activity/Vol] 48 U/L 32-92 [facility] Serum or plasma anion gap de terminationOrdered By: Ajit Ptetit on 06-02-2022 Anion gap [Moles/Vol] 15.8 mmol/L 6.0-15.0 [facility] [place] Serum or plasma aspartate am inotransferase measurement (enzymatic activity/volume)Ordered By: Ajit Pettit on 06-02-2022 AST [Catalytic activity/Vol] 21 U/L 10-42 [facility] Serum or plasma calcium ashwini urement (mass/volume)Ordered By: Ajit Pettit on 06-02-2022 Calcium [Mass/Vol] 9.1 mg/dL 8.2-10.2 [facility] Serum or plasma chloride jett surement (moles/volume)Ordered By: Ajit Pettit on 06-02-2022 Chloride [Moles/Vol] 100 mmol/L 95-114 [facility] Serum or plasma glucose ashwini urement (mass/volume)Ordered By: Ajit Pettit on 06-02-2022 Glucose [Mass/Vol] 141 mg/dL 70-100 [facility] Comment on above: ADA recommended refe [...] on 06-02-2022 Potassium [Moles/Vol] 4.3 mmol/L 3.5-5.1 [facility] Serum or plasma sodium measu rement (moles/volume)Ordered By: Ajit Pettit on 06-02-2022 Sodium [Moles/Vol] 132 mmol/L 136-146 [facility] Serum or plasma total biliru bin measurement (mass/volume)Ordered By: Ajit Pettit on 06-02-2022 Bilirubin [Mass/Vol] 0.5 mg/dL 0.3-1.2 [facility] Serum or plasma total carbon dioxide measurement (moles/volume)Ordered By: Ajit Pettit on 06-02-2022 CO2 [Moles/Vol] 20.5 mmol/L 22.0-30.0 [facility] [place] Serum or plasma urea nitroge n measurement (mass/volume)Ordered By: Ajit Pettit on 06-02-2022 Urea nitrogen [Mass/Vol] 12 mg/dL 9-23 [facility] TSH DL <= 0.005 mIU/L QnOrde red By: Ajit Pettit on 06-02-2022 TSH Qn 2.06 m[IU]/L 0.45-5.33 [facility] Basophils Auto (Bld) [#/Vol] Ordered By: Jasmin Velázquez on 05-27-2022 Basophils (Bld) [#/Vol] 0.1 10*3/uL 0.0-0.2 [facility] Basophils/100 WBC Auto (Bld) Ordered By: Jasmin Velázquez on 05-27-2022 Basophils/100 WBC (Bld) 0.6 % . [facility] Blood hemoglobin measurement (mass/volume)Ordered By: Jasmin Velázquez on 05-27-2022 Hemoglobin (Bld) [Mass/Vol] 13.1 g/dL 11.8-15.4 [facility] Blood leukocytes automated c ount (number/volume)Ordered By: Jasmin Velázquez on 05-27-2022 WBC (Bld) [#/Vol] 13.2 10*3/uL 4.5-11.0 [facility] CT biopsyOrdered By: Jasmin noel on 05-27-2022 Transferrin [Mass/Vol] 307 mg/dL 180-380 [facility] Eosinophils Auto (Bld) [#/Vo l]Ordered By: Jasmin Velázquez on 05-27-2022 Eosinophils (Bld) [#/Vol] 0.1 10*3/uL 0.0-0.45 [facility] Eosinophils/100 WBC Auto (Bl d)Ordered By: Jasmin Velázquez on 05-27-2022 Eosinophils/100 WBC (Bld) 1.0 % . [facility] Erythrocyte distribution wid th Auto (RBC) [Ratio]Ordered By: Jasmin Velázquez on 05-27-2022 Erythrocyte distribution width (RBC) [Ratio] 13.5 % 11.9-15.3 [facility] Ferritin [Mass/volume] in Se rum or PlasmaOrdered By: Jasmin Velázquez on 05-27-2022 Ferritin [Mass/Vol] 49.6 ng/mL 11-306.8 [facility] Hematocrit Auto (Bld) [Volum e fraction]Ordered By: Jasmin Velázquez on 05-27-2022 Hematocrit (Bld) [Volume fraction] 40.1 % 34.0-46.4 [facility] Iron [Mass/volume] in Serum or PlasmaOrdered By: Jasmin Velázquez on 05-27-2022 Iron [Mass/Vol] 50 ug/dL 40-150 [facility] Iron binding capacity [Mass/ volume] in Serum or PlasmaOrdered By: Jasmin Velázquez on 05-27-2022 Iron binding capacity [Mass/Vol] 430 ug/dL 255-450 [facility] Iron saturation [Mass Fracti on] in Serum or PlasmaOrdered By: Jasmin Velázquez on 05-27-2022 Iron saturation [Mass fraction] 11.0 % 20-50 [facility] Laboratory - Hematology and Cell countsOrdered By: Jasmin Velázquez on 05-27-2022 Nucleated RBC/100 WBC (Bld) [Ratio] 0.1 % 0-0.5 [facility] Lymphocytes Auto (Bld) [#/Vo l]Ordered By: Jasmin Velázquez on 05-27-2022 Lymphocytes (Bld) [#/Vol] 3.3 10*3/uL 1.00-4.8 [facility] Lymphocytes/100 WBC Auto (Bl d)Ordered By: Jasmin Velázquez on 05-27-2022 Lymphocytes/100 WBC (Bld) 24.8 % . [facility] MCH Auto (RBC) [Entitic mass ]Ordered By: Jasmin Velázquez on 05-27-2022 MCH (RBC) [Entitic mass] 30.0 pg 24.7-34.3 [facility] MCHC Auto (RBC) [Mass/Vol]Or dered By: Jasmin Velázquez on 05-27-2022 MCHC (RBC) [Mass/Vol] 32.7 g/dL 32.0-35.0 [facility] MCV Auto (RBC) [Entitic vol] Ordered By: Jasmin Velázquez on 05-27-2022 MCV (RBC) [Entitic vol] 91.5 fL 80-100 [facility] Monocytes Auto (Bld) [#/Vol] Ordered By: Jasmin Velázquez on 05-27-2022 Monocytes (Bld) [#/Vol] 1.0 10*3/uL 0.0-0.8 [facility] Monocytes/100 WBC Auto (Bld) Ordered By: Jasmin Velázquez on 05-27-2022 Monocytes/100 WBC (Bld) 7.6 % . [facility] Neutrophils Auto (Bld) [#/Vo l]Ordered By: Jasmin Velázquez on 05-27-2022 Neutrophils (Bld) [#/Vol] 8.7 10*3/uL 1.8-7.7 [facility] Neutrophils/100 WBC Auto (Bl d)Ordered By: Jasmin Velázquez on 05-27-2022 Neutrophils/100 WBC (Bld) 66.0 % . [facility] No Panel InformationOrdered By: Jasmin Velázquez on 05-27-2022 BCR/abl See comment [facility] Comment on above: See report. Scanned copy available in EMR. Platelet mean volume Auto (B ld) [Entitic vol]Ordered By: Jasmin Velázquez on 05-27-2022 Platelet mean volume (Bld) [Entitic vol] 8.8 fL 6.3-10.7 [facility] Platelets Auto (Bld) [#/Vol] Ordered By: Jasmin Velázquez on 05-27-2022 Platelets (Bld) [#/Vol] 284 10*3/uL 150-450 [facility] RBC Auto (Bld) [#/Vol]Ordere d By: Jasmin Velázquez on 05-27-2022 RBC (Bld) [#/Vol] 4.38 10*6/uL 3.60-5.00 [facility] Basophils Auto (Bld) [#/Vol] Ordered By: Ajit Pettit on 05-07-2022 Basophils (Bld) [#/Vol] 0.1 10*3/uL 0.0-0.2 [facility] Basophils/100 WBC Auto (Bld) Ordered By: Ajit Pettit on 05-07-2022 Basophils/100 WBC (Bld) 0.6 % . [facility] Blood hemoglobin measurement (mass/volume)Ordered By: Ajit Pettit on 05-07-2022 Hemoglobin (Bld) [Mass/Vol] 13.4 g/dL 11.8-15.4 [facility] Blood leukocytes automated c ount (number/volume)Ordered By: Ajit Pettit on 05-07-2022 WBC (Bld) [#/Vol] 16.2 10*3/uL 4.5-11.0 [facility] Eosinophils Auto (Bld) [#/Vo l]Ordered By: Ajit Pettit on 05-07-2022 Eosinophils (Bld) [#/Vol] 0.1 10*3/uL 0.0-0.45 [facility] Eosinophils/100 WBC Auto (Bl d)Ordered By: Ajit Pettit on 05-07-2022 Eosinophils/100 WBC (Bld) 0.9 % . [facility] Erythrocyte distribution wid th Auto (RBC) [Ratio]Ordered By: Ajit Pettit on 05-07-2022 Erythrocyte distribution width (RBC) [Ratio] 13.6 % 11.9-15.3 [facility] Hematocrit Auto (Bld) [Volum e fraction]Ordered By: Ajit Pettit on 05-07-2022 Hematocrit (Bld) [Volume fraction] 40.5 % 34.0-46.4 [facility] Laboratory - Hematology and Cell countsOrdered By: Ajit Pettit on 05-07-2022 Nucleated RBC/100 WBC (Bld) [Ratio] 0.0 % 0-0.5 [facility] Lymphocytes Auto (Bld) [#/Vo l]Ordered By: Ajit Pettit on 05-07-2022 Lymphocytes (Bld) [#/Vol] 4.7 10*3/uL 1.00-4.8 [facility] Lymphocytes/100 WBC Auto (Bl d)Ordered By: Ajit Pettit on 05-07-2022 Lymphocytes/100 WBC (Bld) 28.9 % . [facility] MCH Auto (RBC) [Entitic mass ]Ordered By: Ajit Pettit on 05-07-2022 MCH (RBC) [Entitic mass] 30.7 pg 24.7-34.3 [facility] MCHC Auto (RBC) [Mass/Vol]Or dered By: Ajit Pettit on 05-07-2022 MCHC (RBC) [Mass/Vol] 33.2 g/dL 32.0-35.0 [facility] MCV Auto (RBC) [Entitic vol] Ordered By: Ajit Pettit on 05-07-2022 MCV (RBC) [Entitic vol] 92.5 fL 80-100 [facility] Monocytes Auto (Bld) [#/Vol] Ordered By: Ajit Pettit on 05-07-2022 Monocytes (Bld) [#/Vol] 1.1 10*3/uL 0.0-0.8 [facility] Monocytes/100 WBC Auto (Bld) Ordered By: Ajit Pettit on 05-07-2022 Monocytes/100 WBC (Bld) 6.8 % . [facility] Neutrophils Auto (Bld) [#/Vo l]Ordered By: Ajit Pettit on 05-07-2022 Neutrophils (Bld) [#/Vol] 10.2 10*3/uL 1.8-7.7 [facility] Neutrophils/100 WBC Auto (Bl d)Ordered By: Ajit Pettit on 05-07-2022 Neutrophils/100 WBC (Bld) 62.8 % . [facility] No Panel InformationOrdered By: Ajit Pettit on 05-07-2022 Platelet Estimate Normal Normal [facility] Platelet Morphology Comment Normal Normal [facility] Platelet mean volume Auto (B ld) [Entitic vol]Ordered By: Ajit Pettit on 05-07-2022 Platelet mean volume (Bld) [Entitic vol] 8.0 fL 6.3-10.7 [facility] Platelets Auto (Bld) [#/Vol] Ordered By: Ajit Pettit on 05-07-2022 Platelets (Bld) [#/Vol] 369 10*3/uL 150-450 [facility] RBC Auto (Bld) [#/Vol]Ordere d By: Ajit Pettit on 05-07-2022 RBC (Bld) [#/Vol] 4.38 10*6/uL 3.60-5.00 [facility] RBC morphologyOrdered By: Shelbi jero Wilver on 05-07-2022 RBC morphology finding Nom (Bld) Normal [facility] Bacterial blood cultureOrder ed By: Rod Alvarado on 05-06-2022 Bacteria identified Cx Nom (Bld) NO GROWTH 5 DAYS [facility] Bacteria identified Cx Nom (Bld) NO GROWTH 5 DAYS [facility] Bacterial blood cultureOrder ed By: Ajit Pettit on 05-06-2022 Bacteria identified Cx Nom (Bld) NO GROWTH 5 DAYS [facility] Urine culture routineOrdered By: Ajit Pettit on 05-02-2022 Bacteria identified Cx Nom (U) 2 Days [facility] Activated partial thrombopla stin time (aPTT) in platelet poor plasma by coagulation aOrdered By: Rod Alvarado on 05-01-2022 aPTT Coag (PPP) [Time] 29.2 s 25.1-36.5 [facility] [place] Automated epithelial cells c ount in urine sediment (number/area)Ordered By: Rod Alvarado on 05-01-2022 Epithelial cells Auto (Urine sed) [#/Area] 5-9 [HPF] 0-2 [facility] Automated erythrocytes count in urine sediment (number/area)Ordered By: Rod Alvarado on 05-01-2022 RBC Auto (Urine sed) [#/Area] 1-2 [HPF] 0-4 [facility] Automated leukocytes count i n urine sediment (number/area)Ordered By: Rod Alvarado on 05-01-2022 WBC Auto (Urine sed) [#/Area] 1-2 [HPF] 0-4 [facility] Basophils Auto (Bld) [#/Vol] Ordered By: Rod Alvarado on 05-01-2022 Basophils (Bld) [#/Vol] 0.2 10*3/uL 0.0-0.2 [facility] Basophils Auto (Bld) [#/Vol] Ordered By: Ajit Pettit on 05-01-2022 Basophils (Bld) [#/Vol] 0.1 10*3/uL 0.0-0.2 [facility] Basophils/100 WBC Auto (Bld) Ordered By: Rod Alvarado on 05-01-2022 Basophils/100 WBC (Bld) 1.0 % . [facility] Basophils/100 WBC Auto (Bld) Ordered By: Ajit Pettit on 05-01-2022 Basophils/100 WBC (Bld) 0.7 % . [facility] Bilirubin Auto test strip Ql (U)Ordered By: Rod Alvarado on 05-01-2022 Bilirubin Ql (U) 1+ Negative [facility] [place] Blood hemoglobin measurement (mass/volume)Ordered By: Rod Alvarado on 05-01-2022 Hemoglobin (Bld) [Mass/Vol] 13.1 g/dL 11.8-15.4 [facility] Blood hemoglobin measurement (mass/volume)Ordered By: Ajit Pettit on 05-01-2022 Hemoglobin (Bld) [Mass/Vol] 12.9 g/dL 11.8-15.4 [facility] Blood leukocytes automated c ount (number/volume)Ordered By: Rod Alvarado on 05-01-2022 WBC (Bld) [#/Vol] 15.9 10*3/uL 4.5-11.0 [facility] Blood leukocytes automated c ount (number/volume)Ordered By: Ajit Pettit on 05-01-2022 WBC (Bld) [#/Vol] 14.7 10*3/uL 4.5-11.0 [facility] Body fluid albumin measureme nt (mass/volume)Ordered By: Ajit Pettit on 05-01-2022 Albumin (Body fld) [Mass/Vol] 3.6 g/dL 3.2-5.5 [facility] Creatinine and Glomerular fi ltration rate.predicted panel (S/P/Bld)Ordered By: Rod Alvarado on 05-01-2022 Creatinine [Mass/Vol] 0.58 mg/dL 0.44-1.03 [facility] Creatinine and Glomerular fi ltration rate.predicted panel (S/P/Bld)Ordered By: Ajit Pettit on 05-01-2022 Creatinine [Mass/Vol] 0.58 mg/dL 0.44-1.03 [facility] Eosinophils Auto (Bld) [#/Vo l]Ordered By: Rod Alvarado on 05-01-2022 Eosinophils (Bld) [#/Vol] 0.2 10*3/uL 0.0-0.45 [facility] Eosinophils Auto (Bld) [#/Vo l]Ordered By: Ajit Pettit on 05-01-2022 Eosinophils (Bld) [#/Vol] 0.1 10*3/uL 0.0-0.45 [facility] Eosinophils/100 WBC Auto (Bl d)Ordered By: Rod Alvarado on 05-01-2022 Eosinophils/100 WBC (Bld) 1.0 % . [facility] Eosinophils/100 WBC Auto (Bl d)Ordered By: Ajit Pettit on 05-01-2022 Eosinophils/100 WBC (Bld) 0.9 % . [facility] Erythrocyte distribution wid th Auto (RBC) [Ratio]Ordered By: Rod Alvarado on 05-01-2022 Erythrocyte distribution width (RBC) [Ratio] 13.6 % 11.9-15.3 [facility] Erythrocyte distribution wid th Auto (RBC) [Ratio]Ordered By: Ajit Pettit on 05-01-2022 Erythrocyte distribution width (RBC) [Ratio] 13.6 % 11.9-15.3 [facility] Estimated glomerular filtrat ion rate (GFR) non- AmericanOrdered By: Rod Alvarado on 05-01-2022 GFR/1.73 sq M.predicted among non-blacks MDRD (S/P/Bld) [Vol rate/Area] > 60 mL/Min [facility] Estimated glomerular filtrat ion rate (GFR) non- AmericanOrdered By: Ajit Pettit on 05-01-2022 GFR/1.73 sq M.predicted among non-blacks MDRD (S/P/Bld) [Vol rate/Area] > 60 mL/Min [facility] Globulin Calc (S) [Mass/Vol] Ordered By: Ajit Pettit on 05-01-2022 Globulin (S) [Mass/Vol] 2.6 g/dL [facility] Hematocrit Auto (Bld) [Volum e fraction]Ordered By: Rod Alvarado on 05-01-2022 Hematocrit (Bld) [Volume fraction] 39.0 % 34.0-46.4 [facility] Hematocrit Auto (Bld) [Volum e fraction]Ordered By: Ajit Pettit on 05-01-2022 Hematocrit (Bld) [Volume fraction] 39.0 % 34.0-46.4 [facility] Ketones Auto test strip (U) [Mass/Vol]Ordered By: Rod Alvarado on 05-01-2022 Ketones (U) [Mass/Vol] Trace Negative [facility] Laboratory - Chemistry and C hemistry - challengeOrdered By: Rod Alvarado on 05-01-2022 Lipase [Catalytic activity/Vol] 37.0 U/L 22-51 [facility] Laboratory - CoagulationOrde red By: Rod Alvarado on 05-01-2022 PT Coag (PPP) [Time] 9.6 s 9.0-12.9 [facility] Laboratory - Hematology and Cell countsOrdered By: Rod Alvarado on 05-01-2022 Nucleated RBC/100 WBC (Bld) [Ratio] 0.0 % 0-0.5 [facility] Laboratory - Hematology and Cell countsOrdered By: Ajit Pettit on 05-01-2022 Nucleated RBC/100 WBC (Bld) [Ratio] 0.0 % 0-0.5 [facility] Lymphocytes Auto (Bld) [#/Vo l]Ordered By: Rod Alvarado on 05-01-2022 Lymphocytes (Bld) [#/Vol] 4.3 10*3/uL 1.00-4.8 [facility] Lymphocytes Auto (Bld) [#/Vo l]Ordered By: Ajit Pettit on 05-01-2022 Lymphocytes (Bld) [#/Vol] 3.6 10*3/uL 1.00-4.8 [facility] Lymphocytes/100 WBC Auto (Bl d)Ordered By: Rod Alvarado on 05-01-2022 Lymphocytes/100 WBC (Bld) 26.9 % . [facility] Lymphocytes/100 WBC Auto (Bl d)Ordered By: Ajit Pettit on 05-01-2022 Lymphocytes/100 WBC (Bld) 24.8 % . [facility] MCH Auto (RBC) [Entitic mass ]Ordered By: Rod Alvarado on 05-01-2022 MCH (RBC) [Entitic mass] 30.5 pg 24.7-34.3 [facility] MCH Auto (RBC) [Entitic mass ]Ordered By: Ajit Pettit on 05-01-2022 MCH (RBC) [Entitic mass] 30.5 pg 24.7-34.3 [facility] MCHC Auto (RBC) [Mass/Vol]Or dered By: Rod Alvarado on 05-01-2022 MCHC (RBC) [Mass/Vol] 33.5 g/dL 32.0-35.0 [facility] MCHC Auto (RBC) [Mass/Vol]Or dered By: Ajit Pettit on 05-01-2022 MCHC (RBC) [Mass/Vol] 32.9 g/dL 32.0-35.0 [facility] MCV Auto (RBC) [Entitic vol] Ordered By: Rod Alvarado on 05-01-2022 MCV (RBC) [Entitic vol] 91.0 fL 80-100 [facility] MCV Auto (RBC) [Entitic vol] Ordered By: Ajit Pettit on 05-01-2022 MCV (RBC) [Entitic vol] 92.6 fL 80-100 [facility] Monocytes Auto (Bld) [#/Vol] Ordered By: Rod Alvarado on 05-01-2022 Monocytes (Bld) [#/Vol] 1.1 10*3/uL 0.0-0.8 [facility] Monocytes Auto (Bld) [#/Vol] Ordered By: Ajit Pettit on 05-01-2022 Monocytes (Bld) [#/Vol] 1.1 10*3/uL 0.0-0.8 [facility] Monocytes/100 WBC Auto (Bld) Ordered By: Rod Alvarado on 05-01-2022 Monocytes/100 WBC (Bld) 6.7 % . [facility] Monocytes/100 WBC Auto (Bld) Ordered By: Ajit Pettit on 05-01-2022 Monocytes/100 WBC (Bld) 7.2 % . [facility] Neutrophils Auto (Bld) [#/Vo l]Ordered By: Rod Alvarado on 05-01-2022 Neutrophils (Bld) [#/Vol] 10.3 10*3/uL 1.8-7.7 [facility] Neutrophils Auto (Bld) [#/Vo l]Ordered By: Ajit Pettit on 05-01-2022 Neutrophils (Bld) [#/Vol] 9.8 10*3/uL 1.8-7.7 [facility] Neutrophils/100 WBC Auto (Bl d)Ordered By: Rod Alvarado on 05-01-2022 Neutrophils/100 WBC (Bld) 64.4 % . [facility] Neutrophils/100 WBC Auto (Bl d)Ordered By: Ajit Pettit on 05-01-2022 Neutrophils/100 WBC (Bld) 66.4 % . [facility] No Panel InformationOrdered By: Rod Alvarado on 05-01-2022 Estimated GFR () > 60 mL/Min [facility] Comment on above: GFR estimated refere nce range: According to KDOQI guidelines, <60 ml/min/1.73m2 is sufficient to diagnose a patient with chronic kidney disease. Pharmacy Creatinine Clearance (Chem 128.97 [facility] No Panel InformationOrdered By: Ajit Pettit on 05-01-2022 Estimated GFR () > 60 mL/Min [facility] Comment on above: GFR estimated refere nce range: According to KDOQI guidelines, <60 ml/min/1.73m2 is sufficient to diagnose a patient with chronic kidney disease. Pharmacy Creatinine Clearance (Chem N/A [facility] Platelet mean volume Auto (B ld) [Entitic vol]Ordered By: Rod Alvarado on 05-01-2022 Platelet mean volume (Bld) [Entitic vol] 7.6 fL 6.3-10.7 [facility] Platelet mean volume Auto (B ld) [Entitic vol]Ordered By: Ajit Pettit on 05-01-2022 Platelet mean volume (Bld) [Entitic vol] 8.1 fL 6.3-10.7 [facility] Platelet poor plasma interna tional normalized ratio (INR) by coagulation assay (relatOrdered By: Rod Alvarado on 05-01-2022 INR Coag (PPP) [Relative time] 0.9 {INR} [facility] Comment on above: INR Therapeutic [...] 05-01-2022 Platelets (Bld) [#/Vol] 310 10*3/uL 150-450 [facility] Platelets Auto (Bld) [#/Vol] Ordered By: Ajit Pettit on 05-01-2022 Platelets (Bld) [#/Vol] 284 10*3/uL 150-450 [facility] Protein Auto test strip (U) [Mass/Vol]Ordered By: Rod Alvarado on 05-01-2022 Protein (U) [Mass/Vol] Negative Negative [facility] Protein [Mass/volume] in Ser um or PlasmaOrdered By: Ajit Pettit on 05-01-2022 Protein [Mass/Vol] 6.2 g/dL 6.1-7.9 [facility] RBC Auto (Bld) [#/Vol]Ordere d By: Rod Alvarado on 05-01-2022 RBC (Bld) [#/Vol] 4.29 10*6/uL 3.60-5.00 [facility] RBC Auto (Bld) [#/Vol]Ordere d By: Ajit Pettit on 05-01-2022 RBC (Bld) [#/Vol] 4.22 10*6/uL 3.60-5.00 [facility] Serum or plasma alanine george otransferase measurement without P-5'-P (enzymatic activiOrdered By: Ajit Pettit on 05-01-2022 ALT No additional P-5'-P [Catalytic activity/Vol] 17 U/L 10-60 [facility] Serum or plasma albumin/glob ulin mass ratioOrdered By: Ajit Pettit on 05-01-2022 Albumin/Globulin [Mass ratio] 1.4 {ratio} [facility] Serum or plasma alkaline lalo sphatase measurement (enzymatic activity/volume)Ordered By: Ajit Pettit on 05-01-2022 ALP [Catalytic activity/Vol] 52 U/L 32-92 [facility] Serum or plasma aspartate am inotransferase measurement (enzymatic activity/volume)Ordered By: Ajit Pettit on 05-01-2022 AST [Catalytic activity/Vol] 19 U/L 10-42 [facility] Serum or plasma calcium ashwini urement (mass/volume)Ordered By: Rod Alvarado on 05-01-2022 Calcium [Mass/Vol] 9.0 mg/dL 8.2-10.2 [facility] Serum or plasma calcium ashwini urement (mass/volume)Ordered By: Ajit Pettit on 05-01-2022 Calcium [Mass/Vol] 9.2 mg/dL 8.2-10.2 [facility] Serum or plasma chloride jett surement (moles/volume)Ordered By: Rod Alvarado on 05-01-2022 Chloride [Moles/Vol] 101 mmol/L 95-114 [facility] Serum or plasma chloride jett surement (moles/volume)Ordered By: Ajit Pettit on 05-01-2022 Chloride [Moles/Vol] 100 mmol/L 95-114 [facility] Serum or plasma glucose ashwini urement (mass/volume)Ordered By: Rod Alvarado on 05-01-2022 Glucose [Mass/Vol] 110 mg/dL 70-100 [facility] Comment on above: ADA recommended refe [...] on 05-01-2022 Glucose [Mass/Vol] 117 mg/dL 70-100 [facility] Comment on above: ADA recommended refe [...] on 05-01-2022 Potassium [Moles/Vol] 4.4 mmol/L 3.5-5.1 [facility] Serum or plasma potassium me asurement (moles/volume)Ordered By: Ajit Pettit on 05-01-2022 Potassium [Moles/Vol] 4.4 mmol/L 3.5-5.1 [facility] Serum or plasma sodium measu rement (moles/volume)Ordered By: Rod Alvarado on 05-01-2022 Sodium [Moles/Vol] 135 mmol/L 136-146 [facility] Serum or plasma sodium measu rement (moles/volume)Ordered By: Ajit Pettit on 05-01-2022 Sodium [Moles/Vol] 133 mmol/L 136-146 [facility] Serum or plasma total biliru bin measurement (mass/volume)Ordered By: Rod Alvarado on 05-01-2022 Bilirubin [Mass/Vol] 0.7 mg/dL 0.3-1.2 [facility] Serum or plasma total biliru bin measurement (mass/volume)Ordered By: Ajit Pettit on 05-01-2022 Bilirubin [Mass/Vol] 0.4 mg/dL 0.3-1.2 [facility] Serum or plasma total carbon dioxide measurement (moles/volume)Ordered By: Rod Alvarado on 05-01-2022 CO2 [Moles/Vol] 25.9 mmol/L 22.0-30.0 [facility] Serum or plasma total carbon dioxide measurement (moles/volume)Ordered By: Ajit Pettit on 05-01-2022 CO2 [Moles/Vol] 23.1 mmol/L 22.0-30.0 [facility] Serum or plasma urea nitroge n measurement (mass/volume)Ordered By: Rod Alvarado on 05-01-2022 Urea nitrogen [Mass/Vol] 11 mg/dL 06-26 [facility] Serum or plasma urea nitroge n measurement (mass/volume)Ordered By: Ajit Pettit on 05-01-2022 Urea nitrogen [Mass/Vol] 14 mg/dL 06-26 [facility] Urine appearanceOrdered By: Rod Alvarado on 05-01-2022 Appearance (U) Clear Clear [facility] Urine bacteria detection by automated methodOrdered By: Rod Alvarado on 05-01-2022 Bacteria Auto Ql (U) 1+ None Seen [facility] Urine colorOrdered By: Shady Alvarado on 05-01-2022 Color (U) Yellow Yellow [facility] Urine glucose measurement by automated test strip (mass/volume)Ordered By: Rod Alvarado on 05-01-2022 Glucose Auto test strip (U) [Mass/Vol] Normal mg/dL Normal [facility] Urine hemoglobin detection b y automated test stripOrdered By: Rod Alvarado on 05-01-2022 Hemoglobin Auto test strip Ql (U) Negative Negative [facility] Urine lactic acid measuremen tOrdered By: Rod Alvarado on 05-01-2022 Lactate (U) [Moles/Vol] 1.7 mmol/L 0.5-2.2 [facility] Urine lactic acid measuremen tOrdered By: Ajit Pettit on 05-01-2022 Lactate (U) [Moles/Vol] 2.5 mmol/L 0.5-2.2 [facility] Comment on above: Results called at 1022 on 05/01/22 Results calledat 102 2 on 05/01/22 Urine leukocyte esterase det ection by automated test stripOrdered By: Rod Alvarado on 05-01-2022 Leukocyte esterase Auto test strip Ql (U) 2+ Negative [facility] Urine nitrite detection by a utomated test stripOrdered By: Rod Alvarado on 05-01-2022 Nitrite Auto test strip Ql (U) Negative Negative [facility] Urobilinogen Auto test strip (U) [Mass/Vol]Ordered By: Rod Alvarado on 05-01-2022 Urobilinogen (U) [Mass/Vol] Normal mg/dL Normal [facility] pH Auto test strip (U)Ordere d By: Rod Alvarado on 05-01-2022 pH (U) 1.030 [pH] 1.001-1.03 0 [facility] pH (U) 6.0 [pH] 5.0-9.0 [facility] Basophils Auto (Bld) [#/Vol] Ordered By: Ajit Pettit on 04-30-2022 Basophils (Bld) [#/Vol] 0.2 10*3/uL 0.0-0.2 [facility] Basophils/100 WBC Auto (Bld) Ordered By: Ajit Pettit on 04-30-2022 Basophils/100 WBC (Bld) 0.9 % . [facility] Blood hemoglobin measurement (mass/volume)Ordered By: Ajit Pettit on 04-30-2022 Hemoglobin (Bld) [Mass/Vol] 13.9 g/dL 11.8-15.4 [facility] Blood leukocytes automated c ount (number/volume)Ordered By: Ajit Pettit on 04-30-2022 WBC (Bld) [#/Vol] 19.7 10*3/uL 4.5-11.0 [facility] Body fluid albumin measureme nt (mass/volume)Ordered By: Ajit Pettit on 04-30-2022 Albumin (Body fld) [Mass/Vol] 4.1 g/dL 3.2-5.5 [facility] CT biopsyOrdered By: Ajit corrales on 04-30-2022 Transferrin [Mass/Vol] 352 mg/dL 180-380 [facility] Cholesterol [Mass/volume] in Serum or PlasmaOrdered By: Ajit Pettit on 04-30-2022 Cholesterol [Mass/Vol] 260 mg/dL 140-200 [facility] Comment on above: Chol less than 200 m g/dl low risk Chol 201-239 mg/dl borderline risk Chol 240 mg/dl and greater high risk Chol less than 200 m g/dl low riskChol 201-239 mg/dl borderline riskChol 240 mg/dl and greater high risk Cholesterol in LDL Calc [Mas s/Vol]Ordered By: Ajit Pettit on 04-30-2022 Cholesterol in LDL [Mass/Vol] 134 mg/dL 0-100 [facility] Comment on above: LDL ATP [...] 04-30-2022 Cholesterol in VLDL [Mass/Vol] 68 mg/dL [facility] Creatinine and Glomerular fi ltration rate.predicted panel (S/P/Bld)Ordered By: Ajit Pettit on 04-30-2022 Creatinine [Mass/Vol] 0.56 mg/dL 0.44-1.03 [facility] Eosinophils Auto (Bld) [#/Vo l]Ordered By: Ajit Pettit on 04-30-2022 Eosinophils (Bld) [#/Vol] 0.2 10*3/uL 0.0-0.45 [facility] Eosinophils/100 WBC Auto (Bl d)Ordered By: Ajit Pettit on 04-30-2022 Eosinophils/100 WBC (Bld) 1.0 % . [facility] Erythrocyte distribution wid th Auto (RBC) [Ratio]Ordered By: Ajit Pettit on 04-30-2022 Erythrocyte distribution width (RBC) [Ratio] 13.5 % 11.9-15.3 [facility] Estimated glomerular filtrat ion rate (GFR) non- AmericanOrdered By: Ajit Pettit on 04-30-2022 GFR/1.73 sq M.predicted among non-blacks MDRD (S/P/Bld) [Vol rate/Area] > 60 mL/Min [facility] Globulin Calc (S) [Mass/Vol] Ordered By: Ajit Pettit on 04-30-2022 Globulin (S) [Mass/Vol] 2.9 g/dL [facility] Hematocrit Auto (Bld) [Volum e fraction]Ordered By: Ajit Pettit on 04-30-2022 Hematocrit (Bld) [Volume fraction] 42.9 % 34.0-46.4 [facility] Iron [Mass/volume] in Serum or PlasmaOrdered By: Ajit Pettit on 04-30-2022 Iron [Mass/Vol] 51 ug/dL 40-150 [facility] Iron binding capacity [Mass/ volume] in Serum or PlasmaOrdered By: Ajit Pettit on 04-30-2022 Iron binding capacity [Mass/Vol] 493 ug/dL 255-450 [facility] Iron saturation [Mass Fracti on] in Serum or PlasmaOrdered By: Ajit Pettit on 04-30-2022 Iron saturation [Mass fraction] 10.0 % 20-50 [facility] Laboratory - Chemistry and C hemistry - challengeOrdered By: Ajit Pettit on 04-30-2022 Cobalamin (Vitamin B12) [Mass/Vol] 472 pg/mL 180-914 [facility] Laboratory - Hematology and Cell countsOrdered By: Ajit Pettit on 04-30-2022 Nucleated RBC/100 WBC (Bld) [Ratio] 0.2 % 0-0.5 [facility] Lymphocytes Auto (Bld) [#/Vo l]Ordered By: Ajit Pettit on 04-30-2022 Lymphocytes (Bld) [#/Vol] 4.1 10*3/uL 1.00-4.8 [facility] Lymphocytes/100 WBC Auto (Bl d)Ordered By: Ajit Pettit on 04-30-2022 Lymphocytes/100 WBC (Bld) 20.8 % . [facility] MCH Auto (RBC) [Entitic mass ]Ordered By: Ajit Pettit on 04-30-2022 MCH (RBC) [Entitic mass] 30.0 pg 24.7-34.3 [facility] MCHC Auto (RBC) [Mass/Vol]Or dered By: Ajit Pettit on 04-30-2022 MCHC (RBC) [Mass/Vol] 32.4 g/dL 32.0-35.0 [facility] MCV Auto (RBC) [Entitic vol] Ordered By: Ajit Pettit on 04-30-2022 MCV (RBC) [Entitic vol] 92.7 fL 80-100 [facility] Monocytes Auto (Bld) [#/Vol] Ordered By: Ajit Pettit on 04-30-2022 Monocytes (Bld) [#/Vol] 1.3 10*3/uL 0.0-0.8 [facility] Monocytes/100 WBC Auto (Bld) Ordered By: Ajit Pettit on 04-30-2022 Monocytes/100 WBC (Bld) 6.8 % . [facility] Neutrophils Auto (Bld) [#/Vo l]Ordered By: Ajit Pettit on 04-30-2022 Neutrophils (Bld) [#/Vol] 13.9 10*3/uL 1.8-7.7 [facility] Neutrophils/100 WBC Auto (Bl d)Ordered By: Ajit Pettit on 04-30-2022 Neutrophils/100 WBC (Bld) 70.5 % . [facility] No Panel InformationOrdered By: Ajit Pettit on 04-30-2022 25-Hydroxy Vitamin D Total 19.9 ng/mL 30-100 [facility] Comment on above: VITAMIN D STATUS 25( [place])VITAMIN D RANGE (ng/mL) Deficient <20 Insufficient 20 to <30 Sufficient 30 to 100 Reference: Dominique Restrepo, Gillian NINA, et al. Evaluation,treatment, and prevention of vitamin D deficiency; an Endocrine Society clinical practice guideline. JCEM. 2010; 96(7):191-. VITAMIN D STATUS 25( [place])VITAMIN D RANGE (ng/mL) Deficient <20 Insufficient 20 to <30Sufficient 30 to 100Reference: Dominique Restrepo, Gillian NINA, et al. Evaluation,treatment, and prevention of vitamin D deficiency; an Endocrine Society clinical practice guideline. JCEM. 2010; 96(7):1911-. Estimated GFR () > 60 mL/Min [facility] Comment on above: GFR estimated refere nce range: According to KDOQI guidelines, <60 ml/min/1.73m2 is sufficient to diagnose a patient with chronic kidney disease. Pharmacy Creatinine Clearance (Chem N/A [facility] Valproic Acid (Depakene) Level 59.8 ug/mL 50.0-100.0 [facility] Comment on above: Last dose: - Platelet mean volume Auto (B ld) [Entitic vol]Ordered By: Ajit Pettit on 04-30-2022 Platelet mean volume (Bld) [Entitic vol] 8.7 fL 6.3-10.7 [facility] Platelets Auto (Bld) [#/Vol] Ordered By: Ajit Pettit on 04-30-2022 Platelets (Bld) [#/Vol] 257 10*3/uL 150-450 [facility] Protein [Mass/volume] in Ser um or PlasmaOrdered By: Ajit Pettit on 04-30-2022 Protein [Mass/Vol] 7.0 g/dL 6.1-7.9 [facility] RBC Auto (Bld) [#/Vol]Ordere d By: Ajit Pettit on 04-30-2022 RBC (Bld) [#/Vol] 4.62 10*6/uL 3.60-5.00 [facility] Serum or plasma alanine george otransferase measurement without P-5'-P (enzymatic activiOrdered By: Ajit Pettit on 04-30-2022 ALT No additional P-5'-P [Catalytic activity/Vol] 20 U/L 10-60 [facility] Serum or plasma albumin/glob ulin mass ratioOrdered By: Ajit Pettit on 04-30-2022 Albumin/Globulin [Mass ratio] 1.4 {ratio} [facility] Serum or plasma alkaline lalo sphatase measurement (enzymatic activity/volume)Ordered By: Ajit Pettit on 04-30-2022 ALP [Catalytic activity/Vol] 54 U/L 32-92 [facility] Serum or plasma aspartate am inotransferase measurement (enzymatic activity/volume)Ordered By: Ajit Pettit on 04-30-2022 AST [Catalytic activity/Vol] 22 U/L 10-42 [facility] Serum or plasma calcium ashwini urement (mass/volume)Ordered By: Ajit Pettit on 04-30-2022 Calcium [Mass/Vol] 9.4 mg/dL 8.2-10.2 [facility] Serum or plasma chloride jett surement (moles/volume)Ordered By: Ajit Pettit on 04-30-2022 Chloride [Moles/Vol] 102 mmol/L 95-114 [facility] Serum or plasma glucose ashwini urement (mass/volume)Ordered By: Ajit Pettit on 04-30-2022 Glucose [Mass/Vol] 115 mg/dL 70-100 [facility] Comment on above: ADA recommended refe [...] density lipoprotein (HDL) cholesterol measurementOrdered By: Ajit Ptetit on 04-30-2022 Cholesterol in HDL [Mass/Vol] 57 mg/dL 35-85 [facility] Comment on above: HDL CHOL ATP-III CLA SSIFICATION Cardiovascular Risk HDL > or equal to 60 mg/dL LOW HDL < 40 mg/dL HIGH HDL CHOL ATP-III CLA SSIFICATION Cardiovascular RiskHDL > or equal to 60 mg/dL LOWHDL < 40 mg/dL HIGH Serum or plasma potassium me asurement (moles/volume)Ordered By: Ajit Pettit on 04-30-2022 Potassium [Moles/Vol] 4.8 mmol/L 3.5-5.1 [facility] Serum or plasma sodium measu rement (moles/volume)Ordered By: Ajit Pettit on 04-30-2022 Sodium [Moles/Vol] 135 mmol/L 136-146 [facility] Serum or plasma total biliru bin measurement (mass/volume)Ordered By: Ajit Pettit on 04-30-2022 Bilirubin [Mass/Vol] 0.2 mg/dL 0.3-1.2 [facility] Serum or plasma total carbon dioxide measurement (moles/volume)Ordered By: Ajit Pettit on 04-30-2022 CO2 [Moles/Vol] 24.2 mmol/L 22.0-30.0 [facility] [place] Serum or plasma total choles terol/high density lipoprotein (HDL) cholesterol mass ratOrdered By: Ajit Pettit on 04-30-2022 Cholesterol.total/Suellen sterol in HDL [Mass ratio] 4.6 {ratio} <5.0 [facility] Serum or plasma urea nitroge n measurement (mass/volume)Ordered By: Ajit Pettit on 04-30-2022 Urea nitrogen [Mass/Vol] 12 mg/dL 9-23 [facility] TSH DL <= 0.005 mIU/L QnOrde red By: Ajit Pettit on 04-30-2022 TSH Qn 2.89 m[IU]/L 0.45-5.33 [facility] Triglyceride [Mass/volume] i n Serum or PlasmaOrdered By: Ajit Pettit on 04-30-2022 Triglyceride [Mass/Vol] 344 mg/dL 35-149 [facility] Comment on above: TRIG ATP [...] 01-21-2021 Basophils (Bld) [#/Vol] 0.1 10*3/uL 0.0-0.2 [facility] Basophils/100 WBC Auto (Bld) on 01-21-2021 Basophils/100 WBC (Bld) 1.0 % [facility] Blood hemoglobin measurement (mass/volume)on 01-21-2021 Hemoglobin (Bld) [Mass/Vol] 13.0 g/dL 11.8-15.4 [facility] Blood leukocytes automated c ount (number/volume)on 01-21-2021 WBC (Bld) [#/Vol] 13.2 10*3/uL 4.5-11.0 [facility] Body fluid albumin measureme nt (mass/volume)on 01-21-2021 Albumin (Body fld) [Mass/Vol] 3.7 g/dL 3.2-5.5 [facility] Creatinine and Glomerular fi ltration rate.predicted panel (S/P/Bld)on 01-21-2021 Creatinine [Mass/Vol] 0.67 mg/dL 0.44-1.03 [facility] Eosinophils Auto (Bld) [#/Vo l]on 01-21-2021 Eosinophils (Bld) [#/Vol] 0.1 10*3/uL 0.0-0.45 [facility] Eosinophils/100 WBC Auto (Bl d)on 01-21-2021 Eosinophils/100 WBC (Bld) 0.8 % [facility] Erythrocyte distribution wid th Auto (RBC) [Ratio]on 01-21-2021 Erythrocyte distribution width (RBC) [Ratio] 13.1 % 11.9-15.3 [facility] Estimated glomerular filtrat ion rate (GFR) non- Americanon 01-21-2021 GFR/1.73 sq M.predicted among non-blacks MDRD (S/P/Bld) [Vol rate/Area] > 60 mL/Min [facility] Globulin Calc (S) [Mass/Vol] on 01-21-2021 Globulin (S) [Mass/Vol] 2.7 g/dL [facility] Hematocrit Auto (Bld) [Volum e fraction]on 01-21-2021 Hematocrit (Bld) [Volume fraction] 38.1 % 34.0-46.4 [facility] Laboratory - Chemistry and C hemistry - challengeon 01-21-2021 Cobalamin (Vitamin B12) [Mass/Vol] 341 pg/mL 180-914 [facility] Laboratory - Hematology and Cell countson 01-21-2021 Nucleated RBC/100 WBC (Bld) [Ratio] 0.2 % 0-0.5 [facility] Lymphocytes Auto (Bld) [#/Vo l]on 01-21-2021 Lymphocytes (Bld) [#/Vol] 3.9 10*3/uL 1.00-4.8 [facility] Lymphocytes/100 WBC Auto (Bl d)on 01-21-2021 Lymphocytes/100 WBC (Bld) 29.4 % [facility] MCH Auto (RBC) [Entitic mass ]on 01-21-2021 MCH (RBC) [Entitic mass] 30.6 pg 24.7-34.3 [facility] MCHC Auto (RBC) [Mass/Vol]on 01-21-2021 MCHC (RBC) [Mass/Vol] 34.1 g/dL 32.0-35.0 [facility] MCV Auto (RBC) [Entitic vol] on 01-21-2021 MCV (RBC) [Entitic vol] 89.6 fL 80-100 [facility] Monocytes Auto (Bld) [#/Vol] on 01-21-2021 Monocytes (Bld) [#/Vol] 1.1 10*3/uL 0.0-0.8 [facility] Monocytes/100 WBC Auto (Bld) on 01-21-2021 Monocytes/100 WBC (Bld) 8.6 % [facility] Neutrophils Auto (Bld) [#/Vo l]on 01-21-2021 Neutrophils (Bld) [#/Vol] 8.0 10*3/uL 1.8-7.7 [facility] Neutrophils/100 WBC Auto (Bl d)on 01-21-2021 Neutrophils/100 WBC (Bld) 60.2 % [facility] No Panel Informationon 01-21 25-Hydroxy Vitamin D Total 25.5 ng/mL 30-100 [facility] Comment on above: VITAMIN D STATUS 25( [place])VITAMIN D RANGE (ng/mL) Deficient <20 Insufficient 20 to <30Sufficient 30 to 100Reference: Jovanni MF,Dominique NC, Gillian NINA, et al. Evaluation,treatment, and prevention of vitamin D deficiency; an Endocrine Society clinical practice guideline. JCEM. 2010; 96(7):1911-30. Estimated GFR () > 60 mL/Min [facility] Comment on above: GFR estimated refere nce range: According to KDOQI guidelines, <60 ml/min/1.73m2 is sufficient to diagnose a patient with chronic kidney disease. Pharmacy Creatinine Clearance (Chem N/A [facility] Valproic Acid (Depakene) Level 74.3 ug/mL 50.0-100.0 [facility] Comment on above: Last dose: - Platelet mean volume Auto (B ld) [Entitic vol]on 01-21-2021 Platelet mean volume (Bld) [Entitic vol] 9.1 fL 6.3-10.7 [facility] Platelets Auto (Bld) [#/Vol] on 01-21-2021 Platelets (Bld) [#/Vol] 261 10*3/uL 150-450 [facility] Protein [Mass/volume] in Ser um or Plasmaon 01-21-2021 Protein [Mass/Vol] 6.4 g/dL 6.1-7.9 [facility] RBC Auto (Bld) [#/Vol]on RBC (Bld) [#/Vol] 4.25 10*6/uL 3.60-5.00 [facility] Serum or plasma alanine george otransferase measurement without P-5'-P (enzymatic activion 01-21-2021 ALT No additional P-5'-P [Catalytic activity/Vol] 14 U/L 10-60 [facility] Serum or plasma albumin/glob ulin mass ratioon 01-21-2021 Albumin/Globulin [Mass ratio] 1.4 {ratio} [facility] Serum or plasma alkaline lalo sphatase measurement (enzymatic activity/volume)on 01-21-2021 ALP [Catalytic activity/Vol] 50 U/L 32-92 [facility] Serum or plasma aspartate am inotransferase measurement (enzymatic activity/volume)on 01-21-2021 AST [Catalytic activity/Vol] 17 U/L 10-42 [facility] Serum or plasma calcium ashwini urement (mass/volume)on 01-21-2021 Calcium [Mass/Vol] 9.5 mg/dL 8.2-10.2 [facility] Serum or plasma chloride jett surement (moles/volume)on 01-21-2021 Chloride [Moles/Vol] 96 mmol/L 95-114 [facility] Serum or plasma glucose ashwini urement (mass/volume)on 01-21-2021 Glucose [Mass/Vol] 117 mg/dL 70-100 [facility] Comment on above: ADA recommended refe rence rangeRandom Glucose Reference Range is dependent on time and content of last meal. Glucose of more than 200 mg/dL in a nonstressed, ambulatory subject supports the diagnosis of Diabetes Mellitus. Serum or plasma potassium me asurement (moles/volume)on 01-21-2021 Potassium [Moles/Vol] 4.3 mmol/L 3.5-5.1 [facility] Serum or plasma sodium measu rement (moles/volume)on 01-21-2021 Sodium [Moles/Vol] 132 mmol/L 136-146 [facility] Serum or plasma total biliru bin measurement (mass/volume)on 01-21-2021 Bilirubin [Mass/Vol] 0.3 mg/dL 0.3-1.2 [facility] Serum or plasma total carbon dioxide measurement (moles/volume)on 01-21-2021 CO2 [Moles/Vol] 23.6 mmol/L 22.0-30.0 [facility] Serum or plasma urea nitroge n measurement (mass/volume)on 01-21-2021 Urea nitrogen [Mass/Vol] 13 mg/dL 9-23 [facility] Albumin [Mass/volume] in Ser um or Plasmaon 11-05-2020 Albumin [Mass/Vol] 4.4 g/dL 3.2-5.5 [facility] Automated basophil %on 11-05 Basophils/100 WBC (Bld) 0.7 % F [facility] Automated basophil counton 0 11-05-2020 Basophils (Bld) [#/Vol] 0.1 10*3/uL 0.0-0.2 [facility] Automated blood lymphocyte c ount (number/volume)on 11-05-2020 Lymphocytes (Bld) [#/Vol] 3.5 10*3/uL 1.00-4.8 [facility] Automated blood lymphocyte c ount as percentage of total leukocyteson 11-05-2020 Lymphocytes/100 WBC (Bld) 26.0 % [facility] Automated blood monocyte cou nton 11-05-2020 Monocytes (Bld) [#/Vol] 1.2 10*3/uL 0.0-0.8 [facility] Automated blood platelet cou nt (count/volume)on 11-05-2020 Platelets (Bld) [#/Vol] 317 10*3/uL 150-450 [facility] Automated blood platelet jett n volume measurementon 11-05-2020 Platelet mean volume (Bld) [Entitic vol] 8.2 fL 6.3-10.7 [facility] Automated eosinophil %on Eosinophils/100 WBC (Bld) 0.5 % [facility] Automated eosinophil counton 11-05-2020 Eosinophils (Bld) [#/Vol] 0.1 10*3/uL 0.0-0.45 [facility] Automated erythrocyte distri bution width ratioon 11-05-2020 Erythrocyte distribution width (RBC) [Ratio] 13.0 % 11.9-15.3 [facility] Automated erythrocyte mean c orpuscular hemoglobin (mass per erythrocyte)on 11-05-2020 MCH (RBC) [Entitic mass] 30.2 pg 24.7-34.3 [facility] Automated erythrocyte mean c orpuscular hemoglobin concentration measurement (mass/volon 11-05-2020 MCHC (RBC) [Mass/Vol] 33.9 g/dL 32.0-35.0 [facility] Automated erythrocyte mean c orpuscular volumeon 11-05-2020 MCV (RBC) [Entitic vol] 89.1 fL 80-100 [facility] Automated monocyte %on 11-05 Monocytes/100 WBC (Bld) 8.8 % F [facility] Automated neutrophil %on Neutrophils/100 WBC (Bld) 64.0 % [facility] Blood erythrocytes automated count (number/volume)on 11-05-2020 RBC (Bld) [#/Vol] 4.92 10*6/uL 3.60-5.00 [facility] Blood hemoglobin measurement (mass/volume)on 11-05-2020 Hemoglobin (Bld) [Mass/Vol] 14.9 g/dL 11.8-15.4 [facility] Blood leukocytes automated c ount (number/volume)on 11-05-2020 WBC (Bld) [#/Vol] 13.4 10*3/uL 4.5-11.0 [facility] Blood neutrophil count by au tomated method (number/volume)on 11-05-2020 Neutrophils (Bld) [#/Vol] 8.6 10*3/uL 1.8-7.7 [facility] Estimated glomerular filtrat ion rate (GFR) non- Americanon 11-05-2020 GFR/1.73 sq M predicted among non-blacks MDRD (S/P/Bld) [Vol rate/Area] mL/min/{1.73_m2} [facility] Hematocrit [Volume Fraction] of Blood by Automated counton 11-05-2020 Hematocrit (Bld) [Volume fraction] 43.8 % 34.0-46.4 [facility] Otheron 11-05-2020 GFR/1.73 sq M.predicted MDRD (S/P/Bld) [Vol rate/Area] mL/min/{1.73_m2} [facility] Comment on above: GFR estimated refere nce range: According to KDOQI guidelines, <60 ml/min/1.73m2 is sufficient to diagnose a patient with chronic kidney disease. Nucleated RBC/100 WBC (Bld) [Ratio] 0.2 % 0-0.5 [facility] Creatinine Clearance (Chem N/A [facility] Protein [Mass/volume] in Ser um or Plasmaon 11-05-2020 Protein [Mass/Vol] 7.2 g/dL 6.1-7.9 [facility] Serum globulin measurement b y calculation (mass/volume)on 11-05-2020 Globulin (S) [Mass/Vol] 2.8 g/dL F [facility] Serum glutamate decarboxylas e 65 antibody assay (units/volume)on 11-05-2020 Glutamate decarboxylase 65 Ab Qn (S) <5.0 U/mL [facility] Comment on above: Performed at: [facility] [address] [id number] Director: Ana Lee MD, Phone: [phone] Serum nuclear antibody titer on 11-05-2020 Nuclear Ab (S) [Titer] Negative Fi [facility] Comment on above: Negative <1:80 Borde rline 1:80 Positive >1:80Performed at: [facility] [id number] [place], [place] [id number] Director: Daniel Wen PhD, Phone: [phone] Nuclear Ab (S) [Titer] Negative [facility] Comment on above: Negative <1:80 Borde rline 1:80 Positive >1:80Performed at: [facility] [place], [place] [id number] Director: Daniel Wen PhD, Phone: [phone] Serum or plasma alanine george otransferase measurement without P-5'-P (enzymatic activion 11-05-2020 ALT No additional P-5'-P [Catalytic activity/Vol] 22 U/L 10-60 [facility] Serum or plasma albumin/glob ulin mass ratioon 11-05-2020 Albumin/Globulin [Mass ratio] 1.6 {ratio} [facility] Serum or plasma alkaline lalo sphatase measurement (enzymatic activity/volume)on 11-05-2020 ALP [Catalytic activity/Vol] 60 U/L 32-92 [facility] Serum or plasma aspartate am inotransferase measurement (enzymatic activity/volume)on 11-05-2020 AST [Catalytic activity/Vol] 23 U/L 10-42 [facility] Serum or plasma calcium ashwini urement (mass/volume)on 11-05-2020 Calcium [Mass/Vol] 9.6 mg/dL 8.2-10.2 [facility] Serum or plasma chloride jett surement (moles/volume)on 11-05-2020 Chloride [Moles/Vol] 93 mmol/L 95-114 [facility] Serum or plasma creatinine m easurement with calculation of estimated glomerular filtron 11-05-2020 Creatinine [Mass/Vol] 0.62 mg/dL 0.44-1.03 [facility] Serum or plasma glucose ashwini urement (mass/volume)on 11-05-2020 Glucose [Mass/Vol] 82 mg/dL 70-100 [facility] Comment on above: ADA recommended refe rence rangeRandom Glucose Reference Range is dependent on time and content of last meal. Glucose of more than 200 mg/dL in a nonstressed, ambulatory subject supports the diagnosis of Diabetes Mellitus. Serum or plasma potassium me asurement (moles/volume)on 11-05-2020 Potassium [Moles/Vol] 4.3 mmol/L 3.5-5.1 [facility] Serum or plasma sodium measu rement (moles/volume)on 11-05-2020 Sodium [Moles/Vol] 128 mmol/L 136-146 [facility] Serum or plasma total biliru bin measurement (mass/volume)on 11-05-2020 Bilirubin [Mass/Vol] 0.6 mg/dL 0.3-1.2 [facility] Serum or plasma total carbon dioxide measurement (moles/volume)on 11-05-2020 CO2 [Moles/Vol] 22.8 mmol/L 22.0-30.0 [facility] Serum or plasma urea nitroge n measurement (mass/volume)on 11-05-2020 Urea nitrogen [Mass/Vol] 10 mg/dL 9-23 [facility] Automated basophil %on 10-22 Basophils/100 WBC (Bld) 0.6 % F [facility] Automated basophil counton 0 10-22-2020 Basophils (Bld) [#/Vol] 0.1 10*3/uL 0.0-0.2 [facility] Automated blood lymphocyte c ount (number/volume)on 10-22-2020 Lymphocytes (Bld) [#/Vol] 2.8 10*3/uL 1.00-4.8 [facility] Automated blood lymphocyte c ount as percentage of total leukocyteson 10-22-2020 Lymphocytes/100 WBC (Bld) 23.6 % [facility] Automated blood monocyte cou nton 10-22-2020 Monocytes (Bld) [#/Vol] 1.0 10*3/uL 0.0-0.8 [facility] Automated blood platelet cou nt (count/volume)on 10-22-2020 Platelets (Bld) [#/Vol] 292 10*3/uL 150-450 [facility] Automated blood platelet jett n volume measurementon 10-22-2020 Platelet mean volume (Bld) [Entitic vol] 9.4 fL 6.3-10.7 [facility] Automated eosinophil %on Eosinophils/100 WBC (Bld) 0.5 % [facility] Automated eosinophil counton 10-22-2020 Eosinophils (Bld) [#/Vol] 0.1 10*3/uL 0.0-0.45 [facility] Automated erythrocyte distri bution width ratioon 10-22-2020 Erythrocyte distribution width (RBC) [Ratio] 12.8 % 11.9-15.3 [facility] Automated erythrocyte mean c orpuscular hemoglobin (mass per erythrocyte)on 10-22-2020 MCH (RBC) [Entitic mass] 29.5 pg 24.7-34.3 [facility] Automated erythrocyte mean c orpuscular hemoglobin concentration measurement (mass/volon 10-22-2020 MCHC (RBC) [Mass/Vol] 32.9 g/dL 32.0-35.0 [facility] Automated erythrocyte mean c orpuscular volumeon 10-22-2020 MCV (RBC) [Entitic vol] 89.6 fL 80-100 F [facility] Automated monocyte %on 10-22 Monocytes/100 WBC (Bld) 8.7 % F [facility] Automated neutrophil %on Neutrophils/100 WBC (Bld) 66.6 % [facility] Blood erythrocytes automated count (number/volume)on 10-22-2020 RBC (Bld) [#/Vol] 4.90 10*6/uL 3.60-5.00 [facility] Blood hemoglobin measurement (mass/volume)on 10-22-2020 Hemoglobin (Bld) [Mass/Vol] 14.5 g/dL 11.8-15.4 [facility] Blood leukocytes automated c ount (number/volume)on 10-22-2020 WBC (Bld) [#/Vol] 12.1 10*3/uL 3.8-11.6 [facility] Blood neutrophil count by au tomated method (number/volume)on 10-22-2020 Neutrophils (Bld) [#/Vol] 8.0 10*3/uL 1.8-7.7 [facility] Body fluid albumin measureme nt (mass/volume)on 10-22-2020 Albumin (Body fld) [Mass/Vol] 4.2 g/dL 3.2-5.5 [facility] Estimated glomerular filtrat ion rate (GFR) non- Americanon 10-22-2020 GFR/1.73 sq M predicted among non-blacks MDRD (S/P/Bld) [Vol rate/Area] mL/min/{1.73_m2} [facility] Hematocrit [Volume Fraction] of Blood by Automated counton 10-22-2020 Hematocrit (Bld) [Volume fraction] 43.9 % 34.0-46.4 [facility] Hematologyon 10-22-2020 Platelets (Bld) [#/Vol] Normal Normal F [facility] Otheron 10-22-2020 25-Hydroxy Vitamin D Total 13.3 ng/mL 30-100 [facility] Comment on above: VITAMIN D STATUS 25( [place])VITAMIN D RANGE (ng/mL) Deficient <20 Insufficient 20 to <30Sufficient 30 to 100Reference: Jovanni MF,Dominique NC, Gillian NINA, et al. Evaluation,treatment, and prevention of vitamin D deficiency; an Endocrine Society clinical practice guideline. JCEM. 2010; 96(7):1911-30. Cobalamin (Vitamin B12) [Mass/Vol] 438 pg/mL 180-914 [facility] GFR/1.73 sq M.predicted MDRD (S/P/Bld) [Vol rate/Area] mL/min/{1.73_m2} [facility] Comment on above: GFR estimated refere nce range: According to KDOQI guidelines, <60 ml/min/1.73m2 is sufficient to diagnose a patient with chronic kidney disease. Nucleated RBC/100 WBC (Bld) [Ratio] 0.0 % 0-0.5 [facility] Creatinine Clearance (Chem N/A [facility] Platelet Morphology Comment Normal Normal [facility] Valproic Acid (Depakene) Level 108.9 ug/mL 50.0-100.0 [facility] Comment on above: Last dose: - Protein [Mass/volume] in Ser um or Plasmaon 10-22-2020 Protein [Mass/Vol] 7.1 g/dL 6.1-7.9 [facility] RBC morphologyon 10-22-2020 RBC morphology finding Nom (Bld) Normal [facility] Serum globulin measurement b y calculation (mass/volume)on 10-22-2020 Globulin (S) [Mass/Vol] 2.9 g/dL F [facility] Serum or plasma alanine george otransferase measurement without P-5'-P (enzymatic activion 10-22-2020 ALT No additional P-5'-P [Catalytic activity/Vol] 13 U/L 10-60 [facility] Serum or plasma albumin/glob ulin mass ratioon 10-22-2020 Albumin/Globulin [Mass ratio] 1.4 {ratio} [facility] Serum or plasma alkaline lalo sphatase measurement (enzymatic activity/volume)on 10-22-2020 ALP [Catalytic activity/Vol] 53 U/L 32-92 [facility] Serum or plasma aspartate am inotransferase measurement (enzymatic activity/volume)on 10-22-2020 AST [Catalytic activity/Vol] 15 U/L 10-42 [facility] Serum or plasma calcium ashwini urement (mass/volume)on 10-22-2020 Calcium [Mass/Vol] 9.6 mg/dL 8.2-10.2 [facility] Serum or plasma chloride jett surement (moles/volume)on 10-22-2020 Chloride [Moles/Vol] 96 mmol/L 95-114 [facility] Serum or plasma creatinine m easurement with calculation of estimated glomerular filtron 10-22-2020 Creatinine [Mass/Vol] 0.54 mg/dL 0.44-1.03 [facility] Serum or plasma glucose ashwini urement (mass/volume)on 10-22-2020 Glucose [Mass/Vol] 96 mg/dL 70-100 [facility] Comment on above: ADA recommended refe rence rangeRandom Glucose Reference Range is dependent on time and content of last meal. Glucose of more than 200 mg/dL in a nonstressed, ambulatory subject supports the diagnosis of Diabetes Mellitus. Serum or plasma potassium me asurement (moles/volume)on 10-22-2020 Potassium [Moles/Vol] 4.7 mmol/L 3.5-5.1 [facility] Serum or plasma sodium measu rement (moles/volume)on 10-22-2020 Sodium [Moles/Vol] 130 mmol/L 136-146 [facility] Serum or plasma total biliru bin measurement (mass/volume)on 10-22-2020 Bilirubin [Mass/Vol] 0.3 mg/dL 0.3-1.2 [facility] Serum or plasma total carbon dioxide measurement (moles/volume)on 10-22-2020 CO2 [Moles/Vol] 22.5 mmol/L 22.0-30.0 [facility] Serum or plasma urea nitroge n measurement (mass/volume)on 10-22-2020 Urea nitrogen [Mass/Vol] 5 mg/dL 9-23 [facility] Automated basophil %on 09-23 Basophils/100 WBC (Bld) 0.7 % [facility] Automated basophil counton 1 11-24-2019 Basophils (Bld) [#/Vol] 0.1 10*3/uL 0.0-0.2 [facility] Automated blood lymphocyte c ount (number/volume)on 09-23-2020 Lymphocytes (Bld) [#/Vol] 3.3 10*3/uL 1.00-4.8 [facility] Automated blood lymphocyte c ount as percentage of total leukocyteson 09-23-2020 Lymphocytes/100 WBC (Bld) 27.3 % [facility] Automated blood monocyte cou nton 09-23-2020 Monocytes (Bld) [#/Vol] 1.3 10*3/uL 0.0-0.8 [facility] Automated blood platelet cou nt (count/volume)on 09-23-2020 Platelets (Bld) [#/Vol] 299 10*3/uL 150-450 [facility] Automated blood platelet jett n volume measurementon 09-23-2020 Platelet mean volume (Bld) [Entitic vol] 8.3 fL 6.3-10.7 [facility] Automated eosinophil %on Eosinophils/100 WBC (Bld) 0.7 % [facility] Automated eosinophil counton 09-23-2020 Eosinophils (Bld) [#/Vol] 0.1 10*3/uL 0.0-0.45 [facility] Automated erythrocyte distri bution width ratioon 09-23-2020 Erythrocyte distribution width (RBC) [Ratio] 12.8 % 11.9-15.3 [facility] Automated erythrocyte mean c orpuscular hemoglobin (mass per erythrocyte)on 09-23-2020 MCH (RBC) [Entitic mass] 29.8 pg 24.7-34.3 [facility] Automated erythrocyte mean c orpuscular hemoglobin concentration measurement (mass/volon 09-23-2020 MCHC (RBC) [Mass/Vol] 33.4 g/dL 32.0-35.0 [facility] Automated erythrocyte mean c orpuscular volumeon 09-23-2020 MCV (RBC) [Entitic vol] 89.3 fL 80-100 [facility] Automated monocyte %on 09-23 Monocytes/100 WBC (Bld) 10.8 % F [facility] Automated neutrophil %on Neutrophils/100 WBC (Bld) 60.5 % [facility] Blood erythrocytes automated count (number/volume)on 09-23-2020 RBC (Bld) [#/Vol] 4.72 10*6/uL 3.60-5.00 [facility] Blood hemoglobin measurement (mass/volume)on 09-23-2020 Hemoglobin (Bld) [Mass/Vol] 14.1 g/dL 11.8-15.4 [facility] Blood leukocytes automated c ount (number/volume)on 09-23-2020 WBC (Bld) [#/Vol] 11.9 10*3/uL 3.8-11.6 [facility] Blood neutrophil count by au tomated method (number/volume)on 09-23-2020 Neutrophils (Bld) [#/Vol] 7.2 10*3/uL 1.8-7.7 [facility] Body fluid albumin measureme nt (mass/volume)on 09-23-2020 Albumin (Body fld) [Mass/Vol] 3.9 g/dL 3.2-5.5 [facility] Estimated glomerular filtrat ion rate (GFR) non- Americanon 09-23-2020 GFR/1.73 sq M predicted among non-blacks MDRD (S/P/Bld) [Vol rate/Area] mL/min/{1.73_m2} [facility] Hematocrit [Volume Fraction] of Blood by Automated counton 09-23-2020 Hematocrit (Bld) [Volume fraction] 42.1 % 34.0-46.4 [facility] Otheron 09-23-2020 25-Hydroxy Vitamin D Total 17.0 ng/mL 30-100 [facility] Comment on above: VITAMIN D STATUS 25( [place])VITAMIN D RANGE (ng/mL) Deficient <20 Insufficient 20 to <30Sufficient 30 to 100Reference: Jovanni ENCINAS,Dominique ARORA, Gillian NINA, et al. Evaluation,treatment, and prevention of vitamin D deficiency; an Endocrine Society clinical practice guideline. JCEM. 2010; 96(7):1911-30. GFR/1.73 sq M.predicted MDRD (S/P/Bld) [Vol rate/Area] mL/min/{1.73_m2} [facility] Comment on above: GFR estimated refere nce range: According to KDOQI guidelines, <60 ml/min/1.73m2 is sufficient to diagnose a patient with chronic kidney disease. Nucleated RBC/100 WBC (Bld) [Ratio] 0.1 % 0-0.5 [facility] Creatinine Clearance (Chem N/A [facility] Valproic Acid (Depakene) Level 45.9 ug/mL 50.0-100.0 [facility] Comment on above: Last dose: - Protein [Mass/volume] in Ser um or Plasmaon 09-23-2020 Protein [Mass/Vol] 6.7 g/dL 6.1-7.9 [facility] Serum globulin measurement b y calculation (mass/volume)on 09-23-2020 Globulin (S) [Mass/Vol] 2.8 g/dL F [facility] Serum or plasma alanine george otransferase measurement without P-5'-P (enzymatic activion 09-23-2020 ALT No additional P-5'-P [Catalytic activity/Vol] 15 U/L 10-60 [facility] Serum or plasma albumin/glob ulin mass ratioon 09-23-2020 Albumin/Globulin [Mass ratio] 1.4 {ratio} [facility] Serum or plasma alkaline lalo sphatase measurement (enzymatic activity/volume)on 09-23-2020 ALP [Catalytic activity/Vol] 52 U/L 32-92 [facility] Serum or plasma aspartate am inotransferase measurement (enzymatic activity/volume)on 09-23-2020 AST [Catalytic activity/Vol] 16 U/L 10-42 [facility] Serum or plasma calcium ashwini urement (mass/volume)on 09-23-2020 Calcium [Mass/Vol] 9.2 mg/dL 8.2-10.2 [facility] Serum or plasma chloride jett surement (moles/volume)on 09-23-2020 Chloride [Moles/Vol] 102 mmol/L 95-114 [facility] Serum or plasma creatinine m easurement with calculation of estimated glomerular filtron 09-23-2020 Creatinine [Mass/Vol] 0.67 mg/dL 0.44-1.03 [facility] Serum or plasma glucose ashwini urement (mass/volume)on 09-23-2020 Glucose [Mass/Vol] 122 mg/dL 70-100 [facility] Comment on above: ADA recommended refe rence rangeRandom Glucose Reference Range is dependent on time and content of last meal. Glucose of more than 200 mg/dL in a nonstressed, ambulatory subject supports the diagnosis of Diabetes Mellitus. Serum or plasma potassium me asurement (moles/volume)on 09-23-2020 Potassium [Moles/Vol] 4.8 mmol/L 3.5-5.1 [facility] Serum or plasma sodium measu rement (moles/volume)on 09-23-2020 Sodium [Moles/Vol] 136 mmol/L 136-146 [facility] Serum or plasma total biliru bin measurement (mass/volume)on 09-23-2020 Bilirubin [Mass/Vol] 0.2 mg/dL 0.3-1.2 [facility] Serum or plasma total carbon dioxide measurement (moles/volume)on 09-23-2020 CO2 [Moles/Vol] 23.0 mmol/L 22.0-30.0 [facility] Serum or plasma urea nitroge n measurement (mass/volume)on 09-23-2020 Urea nitrogen [Mass/Vol] 5 mg/dL 06-26 [facility] - Other Lab [facility] - Other Lab Results [id number]#[id number] Normal [facility] Coding Summaryon 06-27-2019 Coding Summary CODING DATE: 019 [facility] STATUS: Home PAYOR: Medicaid HMO ADMIT [...] Piña Revised Date Saved: 06/27/2019 12:43 [facility] Provider Orderson 06-27-2019 Provider Orders [id number] [id number][facility] .Auto Diff 1on 06-26-2019 Auto [place] % 9 % Normal 1-12 [facility] Comment on above: Performed By: #### 1 [id number] #### [facility] (DEFAULT) [address] [place] [address] Baso Abs# 0.0 x10 Normal 0.0-0.2 [facility] Comment on above: Performed By: #### 1 [id number] #### [facility] (DEFAULT) [address] [place] [address] Basophils/100 WBC (Bld) 0.3 % Normal 0.2-2.0 [facility] Comment on above: Performed By: #### 1 [id number] #### [facility] (DEFAULT) [address] [place] [address] Eos Abs# 0.0 x10 Normal 0.0-0.4 [facility] Comment on above: Performed By: #### 1 [id number] #### [facility] (DEFAULT) [address] [place] [address] Eosinophils/100 WBC (Bld) 0.4 % Low 0.9-4.0 [facility] Comment on above: Performed By: #### 1 [id number] #### [facility] (DEFAULT) [address] [place] [address] 230[address] Lymphocytes (Bld) [#/Vol] 3.7 x10 High 1.3-2.9 [facility] Comment on above: Performed By: #### 1 [id number] #### [facility] (DEFAULT) [address] [place] [address] 996[address] Lymphocytes/100 WBC (Bld) 29 % Normal 14-48 [facility] Comment on above: Performed By: #### 1 [id number] #### [facility] (DEFAULT) [address] [place] [address] [place] Abs# 1.2 x10 High 0.0-0.8 [facility] Comment on above: Performed By: #### 1 [id number] #### [facility] (DEFAULT) [address] [place] [address] Neut Abs# 7.7 x10 Normal 1.5-9.2 [facility] Comment on above: Performed By: #### 1 [id number] #### [facility] (DEFAULT) [address] [place] [address] 6[address]25 Neutrophils/100 WBC (Bld) 61 % Normal 44-88 [facility] Comment on above: Performed By: #### 1 [id number] #### [facility] (DEFAULT) [address] [place] [address] CBC w/ Auto Diffon 9 Erythrocyte distribution width (RBC) [Ratio] 14.0 % Normal 11.5-15.0 [facility] Comment on above: Performed By: #### 1 [id number] #### [facility] (DEFAULT) [address] [place] [address] Hematocrit (Bld) [Volume fraction] 44.8 % High 33.7-40.4 [facility] Comment on above: Performed By: #### 1 [id number] #### [facility] (DEFAULT) [address] [place] [address]110[address] Hemoglobin (Bld) [Mass/Vol] 15.1 g/dL Normal 11.3-15.9 [facility] Comment on above: Performed By: #### 1 [id number] #### [facility] (DEFAULT) [address] [place] [address] Man Diff? Auto Normal [facility] Comment on above: Performed By: #### 1 [id number] #### [facility] (DEFAULT) [address] [place] [address] 12414 MCH (RBC) [Entitic mass] 30 pg Normal 24-34 [facility] Comment on above: Performed By: #### 1 [id number] #### [facility] (DEFAULT) [address] [place] [address] 94301 MCHC (RBC) [Mass/Vol] 34 g/dL Normal 26-37 [facility] Comment on above: Performed By: #### 1 [id number] #### [facility] (DEFAULT) [address] [place] [address] 11622 MCV (RBC) [Entitic vol] 89 fL Normal 81-100 [facility] Comment on above: Performed By: #### 1 [id number] #### [facility] (DEFAULT) [address] [place] [address] 20131 Platelet mean volume (Bld) [Entitic vol] 9.5 fL Normal 6.3-10.2 [facility] Comment on above: Performed By: #### 1 [id number] #### [facility] (DEFAULT) [address] [place] [address] 87369 Platelets (Bld) [#/Vol] 301 x10 Normal 138-427 [facility] Comment on above: Performed By: #### 1 [id number] #### [facility] (DEFAULT) [address] [place] [address] 23736 RBC (Bld) [#/Vol] 5.04 x10 Normal 3.70-5.30 [facility] Comment on above: Performed By: #### 1 [id number], [id number] #### [facility] (DEFAULT) [address] [place] [address] 52076 WBC (Bld) [#/Vol] 12.6 x10 [facility] Comment on above: Performed By: #### 1 [id number], [id number] #### [facility] (DEFAULT) [address] [place] [address] 69173 Lab - Other Lab [facility] Lab - Other Lab Results [id number] Outside Records [id number] [id number] Vital Signs Date Time Vital Sign Value Performing Clinician Facility 01-24-2025 11:34-0400 Body temperature 97.7 [degF] [facility] 01-24-2025 11:34-0400 Diastolic blood pressure 94 mm[Hg] [facility] 01-24-2025 11:34-0400 Heart rate 93 /min [facility] 01-24-2025 11:34-0400 Respiratory rate 18 /min [facility] 01-24-2025 11:34-0400 SaO2% (BldA) [Mass fraction] 99 % [facility] 01-24-2025 11:34-0400 Systolic blood pressure 140 mm[Hg] [facility] 07-09-2024 15:23-0400 Diastolic blood pressure 85 mm[Hg] Ambrose Cedeño [facility] 07-09-2024 15:23-0400 Heart rate 80 /min Ambrose Cedeño [facility] 07-09-2024 15:23-0400 Mean blood pressure 97 mm[Hg] Ambrose Cedeño [facility] 07-09-2024 15:23-0400 Respiratory rate 18 /min Ambrose Cedeño [facility] 07-09-2024 15:23-0400 SaO2% (BldA) [Mass fraction] 99 % Ambrose Cedeño [facility] 07-09-2024 15:23-0400 Systolic blood pressure 120 mm[Hg] Ambrose Davidson [facility] 07-09-2024 14:45-0400 Diastolic blood pressure 78 mm[Hg] Ambrose Davidson [facility] 07-09-2024 14:45-0400 Heart rate 83 /min Ambrose Davidson [facility] 07-09-2024 14:45-0400 Hourly Rounding Ambrose Davidson [facility] 07-09-2024 14:45-0400 Mean blood pressure 91 mm[Hg] Ambrose Davidson [facility] 07-09-2024 14:45-0400 Promise to Return Ambrose Davidson [facility] 07-09-2024 14:45-0400 Respiratory rate 18 /min Ambrose Davidson [facility] 07-09-2024 14:45-0400 SaO2% (BldA) [Mass fraction] 99 % Ambrose Davidson [facility] 07-09-2024 14:45-0400 Systolic blood pressure 118 mm[Hg] Ambrose Davidson [facility] 07-09-2024 13:45-0400 Diastolic blood pressure 89 mm[Hg] Ambrose Davidson [facility] 07-09-2024 13:45-0400 Heart rate 79 /min Ambrose Davidson [facility] 07-09-2024 13:45-0400 Hourly Rounding Ambrose Davidson [facility] 07-09-2024 13:45-0400 Mean blood pressure 95 mm[Hg] Ambrose Davidson [facility] 07-09-2024 13:45-0400 Promise to Return Ambrose Cedeño [facility] 07-09-2024 13:45-0400 Respiratory rate 18 /min Ambrose Cedeño [facility] 07-09-2024 13:45-0400 SaO2% (BldA) [Mass fraction] 99 % Ambrose Cedeño [facility] 07-09-2024 13:45-0400 Systolic blood pressure 106 mm[Hg] Ambrose Cedeño [facility] 07-09-2024 12:41-0400 Body temperature 98.24 [degF] Ambrose Cedeño [facility] 07-09-2024 12:41-0400 Heart rate 82 /min Ambrose Cedeño [facility] 07-06-2024 20:55-0400 Diastolic blood pressure 84 mm[Hg] [employer] Ajit Spasic Work Phone: [facility] 07-06-2024 20:55-0400 Heart rate 98 /min [employer] Ajit Spasic Work Phone: [facility] 07-06-2024 20:55-0400 Respiratory rate 18 /min [employer] Ajit Spasic Work Phone: [facility] 07-06-2024 20:55-0400 SaO2% (BldA) [Mass fraction] 97 % [employer] Ajit Spasic Work Phone: [facility] 07-06-2024 20:55-0400 Systolic blood pressure 119 mm[Hg] [employer] Ajit Spasic Work Phone: [facility] 07-06-2024 16:05-0400 Body height 166.37 cm [employer] Ajit Spasic Work Phone: [facility] 07-06-2024 16:05-0400 Body temperature 98.2 [degF] [employer] Ajit Spasic Work Phone: [facility] 07-06-2024 16:05-0400 Body weight 66.67 kg [employer] Ajit Spasic Work Phone: [facility] 04-11-2024 14:08-0400 Diastolic blood pressure 70 mm[Hg] [employer] Ajit Spasic Work Phone: [facility] 04-11-2024 14:08-0400 Heart rate 83 /min [employer] Ajit Spasic Work Phone: [facility] 04-11-2024 14:08-0400 SaO2% (BldA) [Mass fraction] 99 % [employer] Ajit Spasic Work Phone: [facility] 04-11-2024 14:08-0400 Systolic blood pressure 118 mm[Hg] [employer] Ajit Spasic Work Phone: [facility] 03-16-2024 09:55-0400 Diastolic blood pressure 87 mm[Hg] [employer] Ajit Spasic Work Phone: [facility] 03-16-2024 09:55-0400 Heart rate 66 /min [employer] Ajit Spasic Work Phone: [facility] 03-16-2024 09:55-0400 Respiratory rate 20 /min [employer] Ajit Spasic Work Phone: [facility] 03-16-2024 09:55-0400 SaO2% (BldA) [Mass fraction] 99 % [employer] Ajit Spasic Work Phone: [facility] 03-16-2024 09:55-0400 Systolic blood pressure 138 mm[Hg] [employer] Ajit Spasic Work Phone: [facility] 03-16-2024 07:01-0400 Body height 166.37 cm [employer] Ajit Spasic Work Phone: [facility] 03-16-2024 07:01-0400 Body temperature 98.3 [degF] [employer] Ajit Spasic Work Phone: [facility] 03-16-2024 07:01-0400 Body weight 69.85 kg [employer] Ajit Spasic Work Phone: [facility] 03-08-2024 14:14-0400 Diastolic blood pressure 70 mm[Hg] [employer] Ajit Spasic Work Phone: [facility] 03-08-2024 14:14-0400 Heart rate 95 /min [employer] Ajit Spasic Work Phone: [facility] 03-08-2024 14:14-0400 SaO2% (BldA) [Mass fraction] 99 % [employer] Ajit Spasic Work Phone: [facility] 03-08-2024 14:14-0400 Systolic blood pressure 122 mm[Hg] [employer] Ajit Spasic Work Phone: [facility] 03-01-2024 12:19-0400 Diastolic blood pressure 75 mm[Hg] [employer] Ajit Spasic Work Phone: [facility] 03-01-2024 12:19-0400 Heart rate 69 /min [employer] Ajit Spasic Work Phone: [facility] 03-01-2024 12:19-0400 Inhaled oxygen flow rate 3 L/min [employer] Ajit Spasic Work Phone: [facility] 03-01-2024 12:19-0400 SaO2% (BldA) [Mass fraction] 100 % [employer] Ajit Spasic Work Phone: [facility] 03-01-2024 12:19-0400 Systolic blood pressure 130 mm[Hg] [employer] Ajit Spasic Work Phone: [facility] 03-01-2024 12:13-0400 Respiratory rate 18 /min [employer] Ajit Spasic Work Phone: [facility] 03-01-2024 09:54-0400 Body height 166.37 cm [employer] Ajit Spasic Work Phone: [facility] 03-01-2024 09:54-0400 Body weight 69.85 kg [employer] Ajit Spasic Work Phone: [phone] [place] [address] 02-21-2024 10:41-0400 Body weight 69.11 kg [employer] Ajit Spasic Work Phone: [facility] 02-21-2024 10:41-0400 Diastolic blood pressure 80 mm[Hg] [employer] Ajit Spasic Work Phone: [facility] 02-21-2024 10:41-0400 Systolic blood pressure 124 mm[Hg] [employer] Ajit Spasic Work Phone: [facility] 10-16-2023 13:00-0500 Diastolic blood pressure 94 mm[Hg] [employer] Ajit Spasic Work Phone: [facility] 10-16-2023 13:00-0500 Heart rate 70 /min [employer] Ajit Spasic Work Phone: [facility] 10-16-2023 13:00-0500 Respiratory rate 16 /min [employer] Ajit Spasic Work Phone: [facility] 10-16-2023 13:00-0500 SaO2% (BldA) [Mass fraction] 97 % [employer] Ajit Spasic Work Phone: [facility] 10-16-2023 13:00-0500 Systolic blood pressure 168 mm[Hg] [employer] Ajit Spasic Work Phone: [facility] 10-16-2023 09:33-0500 Body height 165.1 cm [employer] Ajit Spasic Work Phone: [facility] 10-16-2023 09:33-0500 Body temperature 97.4 [degF] [employer] Ajit Spasic Work Phone: [facility] 10-16-2023 09:33-0500 Body weight 77.3 kg [employer] Ajit Spasic Work Phone: [facility] 10-09-2023 16:00-0500 Body temperature 97.7 [degF] [employer] Ajit Spasic Work Phone: [facility] 10-09-2023 16:00-0500 Diastolic blood pressure 80 mm[Hg] [employer] DES[employer]ER[employer] Ajit Spasic Work Phone: [facility] 10-09-2023 16:00-0500 Heart rate 85 /min [employer] DES[employer] Ajit Spasic Work Phone: [facility] 10-09-2023 16:00-0500 Respiratory rate 18 /min [employer] DES[employer] Ajit Spasic Work Phone: [facility] 10-09-2023 16:00-0500 SaO2% (BldA) [Mass fraction] 99 % [employer] DES[employer] Ajit Spasic Work Phone: [facility] 10-09-2023 16:00-0500 Systolic blood pressure 117 mm[Hg] [employer]PERATING [employer] DES[employer]ER[employer] Ajit Spasic Work Phone: [facility] 10-08-2023 01:12-0500 Body height 165.1 cm [employer] DES[employer] Ajit Spasic Work Phone: [facility] 10-08-2023 01:12-0500 Body weight 76.65 kg [employer]PERATING [employer] DES[employer] Ajit Spasic Work Phone: [facility] 09-28-2023 13:30-0500 Diastolic blood pressure 87 mm[Hg] [employer] DES[employer] Ajit Spasic Work Phone: [facility] 09-28-2023 13:30-0500 Heart rate 94 /min [employer] DES[employer] Ajit Spasic Work Phone: [facility] 09-28-2023 13:30-0500 Respiratory rate 18 /min [employer] DES[employer] Ajit Spasic Work Phone: [facility] 09-28-2023 13:30-0500 SaO2% (BldA) [Mass fraction] 94 % [employer] DES[employer] Ajit Spasic Work Phone: [facility] 09-28-2023 13:30-0500 Systolic blood pressure 131 mm[Hg] [employer]PERATING [employer] DES[employer] Ajit Spasic Work Phone: [facility] 09-28-2023 09:30-0500 Body temperature 97.9 [degF] [employer]PERATING [employer] DES[employer]ER[employer] Ajit Spasic Work Phone: [facility] 09-28-2023 08:51-0500 Inhaled oxygen flow rate 10 L/min [employer]PERATING SYSTEM DES[employer]ER[employer] Ajit Spasic Work Phone: [facility] 09-28-2023 07:20-0500 Body height 166.37 cm [employer]PERATING [employer] DES[employer]ER[employer] Ajit Spasic Work Phone: [facility] 09-28-2023 07:20-0500 Body mass index (BMI) [Ratio] 27.7 kg/m2 [employer] DES[employer] Ajit Spasic Work Phone: [facility] 09-28-2023 07:20-0500 Body weight 76.7 kg [employer]PERATING [employer] DES[employer]ER[employer] Ajit Spasic Work Phone: [facility] 07-13-2023 13:55-0400 Diastolic blood pressure 93 mm[Hg] NA [employer] Work Phone: [facility] 07-13-2023 13:55-0400 Heart rate 87 /min NA [employer] Work Phone: [facility] 07-13-2023 13:55-0400 Respiratory rate 16 /min NA [employer] Work Phone: [facility] 07-13-2023 13:55-0400 SaO2% (BldA) [Mass fraction] 96 % NA [employer] Work Phone: [facility] 07-13-2023 13:55-0400 Systolic blood pressure 133 mm[Hg] NA [employer] Work Phone: [facility] 07-13-2023 13:16-0400 Body temperature 98 [degF] NA [employer] Work Phone: [facility] 07-13-2023 12:51-0400 Inhaled oxygen flow rate 10 L/min NA [employer] Work Phone: [facility] 07-13-2023 12:17-0400 Body height 165.1 cm NA [employer] Work Phone: [facility] 07-13-2023 12:17-0400 Body mass index (BMI) [Ratio] 28.2 kg/m2 NA [employer] Work Phone: [facility] 07-13-2023 12:17-0400 Body weight 77 kg NA [employer] Work Phone: [facility] 05-05-2023 10:18-0400 Diastolic blood pressure 90 mm[Hg] [employer]PERATING SYSTEM DESIGNER[employer] Ajit Spasic Work Phone: [facility] 05-05-2023 10:18-0400 Heart rate 82 /min [employer]PERATING [employer] DES[employer] Ajit Spasic Work Phone: [facility] 05-05-2023 10:18-0400 Respiratory rate 18 /min [employer] DES[employer] Ajit Spasic Work Phone: [facility] 05-05-2023 10:18-0400 SaO2% (BldA) [Mass fraction] 98 % [employer] DES[employer] Ajit Spasic Work Phone: [facility] 05-05-2023 10:18-0400 Systolic blood pressure 130 mm[Hg] [employer]PERATING SYSTEM DES[employer]ER[employer] Ajit Spasic Work Phone: [facility] 05-05-2023 09:39-0400 Inhaled oxygen flow rate 3 L/min [employer] DES[employer] Ajit Spasic Work Phone: [facility] 05-05-2023 08:43-0400 Body height 165.1 cm [employer] DES[employer] Ajit Spasic Work Phone: [facility] 05-05-2023 08:43-0400 Body weight 74.84 kg [employer]PERATING [employer] DES[employer]ER[employer] Ajit Spasic Work Phone: [facility] 04-14-2023 12:08-0400 Diastolic blood pressure 89 mm[Hg] OPERATING SYSTEM DESIGNER[employer] Ajit Spasic Work Phone: [facility] 04-14-2023 12:08-0400 Heart rate 71 /min [employer]PERATING SYSTEM DES[employer]ER[employer] Ajit Spasic Work Phone: [facility] 04-14-2023 12:08-0400 Respiratory rate 16 /min [employer]PERATING [employer] DES[employer]ER[employer] Ajit Spasic Work Phone: [facility] 04-14-2023 12:08-0400 SaO2% (BldA) [Mass fraction] 97 % [employer]ATING [employer] DES[employer] Ajit Spasic Work Phone: [facility] 04-14-2023 12:08-0400 Systolic blood pressure 124 mm[Hg] OPERATING SYSTEM DESIGNER[employer] Ajit Spasic Work Phone: [facility] 04-14-2023 11:29-0400 Inhaled oxygen flow rate 3 L/min [employer]PERATING SYSTEM DESIGNER[employer] Ajit Spasic Work Phone: [facility] 04-14-2023 10:19-0400 Body height 165.1 cm [employer]PER[employer] DES[employer] Ajit Spasic Work Phone: [facility] 04-14-2023 10:19-0400 Body weight 74.84 kg [employer]PERATING SYSTEM DES[employer]ER[employer] Ajit Spasic Work Phone: [facility] 04-02-2023 11:30-0400 Body height 166.37 cm Kyler Miramontes Other [employer] Other 04-02-2023 11:30-0400 Body mass index (BMI) [Ratio] 27.04 kg/m2 Kyler Miramontes Other [employer] Other 04-02-2023 11:30-0400 Body weight 74.84 kg Kyler Miramontes Other [employer] Other 04-02-2023 11:30-0400 Diastolic blood pressure 80 mm[Hg] Kyler Miramontes Other [employer] Other 04-02-2023 11:30-0400 Systolic blood pressure 110 mm[Hg] Kyler Miramontes Other [employer] Other 11-18-2022 11:59-0500 Diastolic blood pressure 94 mm[Hg] Services [facility] [employer] Work Phone: [facility] 11-18-2022 11:59-0500 Heart rate 85 /min [facility] [employer] Work Phone: [facility] 11-18-2022 11:59-0500 Respiratory rate 16 /min [facility] [employer] Work Phone: [facility] 11-18-2022 11:59-0500 SaO2% (BldA) [Mass fraction] 98 % [facility] [employer] Work Phone: [facility] 11-18-2022 11:59-0500 Systolic blood pressure 140 mm[Hg] [facility] [employer] Work Phone: [facility] 11-18-2022 11:21-0500 Inhaled oxygen flow rate 3 L/min [facility] [employer] Work Phone: [facility] 11-18-2022 09:23-0500 Body height 166.37 cm [facility] [employer] Work Phone: [facility] 11-18-2022 09:23-0500 Body weight 74.38 kg [facility] [employer] Work Phone: [facility] 11-03-2022 11:30-0500 Body height 166.37 cm Kyler Miramontes Other [employer] [facility] [employer] Other 11-03-2022 11:30-0500 Diastolic blood pressure 80 mm[Hg] Kyler Miramontes Other [employer] Other 11-03-2022 11:30-0500 SaO2% (BldA) [Mass fraction] 98 % Kyler Miramontes Other [employer] Other 11-03-2022 11:30-0500 Systolic blood pressure 118 mm[Hg] Kyler Aliceaky Other [employer] Other 07-31-2022 11:50-0400 Blood Pressure Location Joshua [employer] [facility] 07-31-2022 11:50-0400 Diastolic blood pressure 82 mm[Hg] Joshua [employer] [facility] 07-31-2022 11:50-0400 Heart rate 70 /min Joshua [employer] [facility] 07-31-2022 11:50-0400 Respiratory rate 16 /min Joshua [employer] [facility] 07-31-2022 11:50-0400 Systolic blood pressure 136 mm[Hg] [facility] 05-27-2022 09:13-0400 Body temperature 97.9 [degF] [facility] Work Phone: [facility] 05-27-2022 09:13-0400 Body weight 77.11 kg [facility] Work Phone: [facility] 05-27-2022 09:13-0400 Diastolic blood pressure 82 mm[Hg] [facility] Work Phone: [facility] 05-27-2022 09:13-0400 Heart rate 70 /min [facility] Work Phone: [facility] 05-27-2022 09:13-0400 Respiratory rate 20 /min [facility] Work Phone: [facility] 05-27-2022 09:13-0400 SaO2% (BldA) [Mass fraction] 98 % [facility] Work Phone: [facility] 05-27-2022 09:13-0400 Systolic blood pressure 121 mm[Hg] [facility] Work Phone: [facility] 05-27-2022 08:06-0400 Body height 166.37 cm [facility] Work Phone: [facility] 05-01-2022 22:19-0400 Diastolic blood pressure 70 mm[Hg] [facility] Work Phone: [facility] 05-01-2022 22:19-0400 Heart rate 86 /min [facility] Work Phone: [facility] 05-01-2022 22:19-0400 Respiratory rate 18 /min [facility] Work Phone: [facility] 05-01-2022 22:19-0400 SaO2% (BldA) [Mass fraction] 99 % [facility] Work Phone: [facility] 05-01-2022 22:19-0400 Systolic blood pressure 138 mm[Hg] [facility] Work Phone: [facility] 05-01-2022 17:09-0400 Body height 166.37 cm [facility] Work Phone: [facility] 05-01-2022 17:09-0400 Body temperature 99.4 [degF] [facility] Work Phone: [facility] 05-01-2022 17:09-0400 Body weight 77.8 kg [facility] Work Phone: [facility] 04-29-2022 14:29-0400 Body height 165.1 cm [facility] Work Phone: [facility] 04-29-2022 14:29-0400 Body temperature 97.8 [degF] [facility] Work Phone: [facility] 04-29-2022 14:29-0400 Body weight 68.03 kg [facility] Work Phone: [facility] 04-29-2022 14:29-0400 Diastolic blood pressure 83 mm[Hg] [facility] Work Phone: [facility] 04-29-2022 14:29-0400 Heart rate 70 /min [facility] Work Phone: [facility] 04-29-2022 14:29-0400 Respiratory rate 16 /min [facility] Work Phone: [facility] 04-29-2022 14:29-0400 SaO2% (BldA) [Mass fraction] 100 % [facility] Work Phone: [facility] 04-29-2022 14:29-0400 Systolic blood pressure 131 mm[Hg] [facility] Work Phone: [facility] 02-19-2022 15:45-0400 Body height 166.37 cm Kyler Miramontes Other [employer] Other 02-19-2022 15:45-0400 Body mass index (BMI) [Ratio] 27.36 kg/m2 Kyler Fe Other [employer] Other 02-19-2022 15:45-0400 Body weight 75.75 kg Kyler Fe Other [employer] Other 02-19-2022 15:45-0400 Diastolic blood pressure 64 mm[Hg] Kyler Fe Other [employer] Other 02-19-2022 15:45-0400 Systolic blood pressure 110 mm[Hg] Kyler Fe Other [employer] Other 01-28-2022 14:00-0400 Body height 166.37 cm Kylerjocelyn Miramontes Other [employer] Other 01-28-2022 14:00-0400 Body mass index (BMI) [Ratio] 27.27 kg/m2 Kylerjocelyn Miramontes Other [employer] Other 01-28-2022 14:00-0400 Body weight 75.48 kg Kyler Fe Other [employer] Other 01-28-2022 14:00-0400 Diastolic blood pressure 68 mm[Hg] Kyler Fe Other [employer] Other 01-28-2022 14:00-0400 Systolic blood pressure 112 mm[Hg] Kyler Fe Other [employer] Other 01-14-2022 12:00-0400 Body height 166.37 cm Girish Callaway Other [employer] Other 01-14-2022 12:00-0400 Body mass index (BMI) [Ratio] 25.23 kg/m2 Girish Callaway Other [email or web address] Other 01-14-2022 12:00-0400 Body weight 69.85 kg Girish Callaway Other [email or web address] Other Encounters Encounter Date Encounter Type Care Provider Facility Start: 01-24-2025 End: 01-24-2025 Emergency department patient [facility] Start: 01-18-2025 End: 01-18-2025 ambulatory Ajit E Spasic Facility:[facility] Start: 01-18-2025 End: 01-18-2025 Departed Referred Ajit Pettit OPERATING SYSTEM DESIGNER-C Work Phone: [facility] Start: 09-06-2024 End: 09-06-2024 ambulatory Ajit E Spasic Facility:[facility] Start: 09-05-2024 End: 09-05-2024 ambulatory Ajit E Spasic Facility:[facility] Start: 07-24-2024 End: 07-24-2024 Patient encounter procedure OPERATING SYSTEM DESIGNER-C Ajit Spasic Work Phone: [facility]-Ultrasound Cntr for Breast Car Start: 07-24-2024 End: 07-24-2024 ambulatory OPERATING SYSTEM DESIGNER-C Ajit E Spasic Work Phone: [facility] Work Phone: Start: 07-09-2024 End: 07-09-2024 Emergency department patient visit Ambrose Cedeño Facility:[facility] Start: 07-06-2024 End: 07-06-2024 Emergency department patient visit OPERATING SYSTEM DESIGNER-C Ajit Polosic Work Phone: [facility]-Emergency Room Work Phone: Start: 07-04-2024 End: 07-04-2024 Patient encounter procedure OPERATING SYSTEM DESIGNER-C Ajit Spasic Work Phone: [facility]-Lab [address] [place] Work Phone: Start: 07-04-2024 End: 07-04-2024 ambulatory OPERATING SYSTEM DESIGNER-C Ajit E Spasic Work Phone: [facility] Work Phone: Start: 06-08-2024 End: 06-08-2024 Patient encounter procedure OPERATING SYSTEM DESIGNER-C Ajit Spasic Work Phone: [facility]-MRI [address] Work Phone: Start: 06-08-2024 End: 06-08-2024 ambulatory OPERATING SYSTEM DESIGNER-C Ajit E Spasic Work Phone: [facility] Work Phone: Start: 05-16-2024 End: 05-16-2024 ambulatory OPERATING SYSTEM DESIGNER-C Ajit E Spasic Work Phone: [facility] Work Phone: Start: 05-16-2024 End: 05-16-2024 Departed Referred OPERATING SYSTEM DESIGNER-C Ajit Spasic Work Phone: [facility] Start: 04-11-2024 End: 04-11-2024 ambulatory OPERATING SYSTEM DESIGNER-C Ajit E Spasic Work Phone: [facility] Work Phone: Start: 04-11-2024 End: 04-11-2024 Patient encounter procedure OPERATING SYSTEM DESIGNER-C Ajit Spasic Work Phone: [facility] Work Phone: Start: 03-16-2024 Non-patient / Non-visit OPERATING SYSTEM DESIGNER-C L aura Spasic Work Phone: [facility] Work Phone: Start: 03-16-2024 End: 03-16-2024 Admission to same day surgery center OPERATING SYSTEM DESIGNER-C Ajit Spasic Work Phone: [facility] Work Phone: Start: 03-16-2024 End: 03-16-2024 ambulatory OPERATING SYSTEM DESIGNER-C Ajit E Spasic Work Phone: [facility] Work Phone: Start: 03-08-2024 End: 03-08-2024 ambulatory OPERATING SYSTEM DESIGNER-C Ajit E Spasic Work Phone: [facility] Work Phone: Start: 03-08-2024 End: 03-08-2024 Patient encounter procedure OPERATING SYSTEM DESIGNER-C Ajit Spasic Work Phone: [facility] Work Phone: Start: 03-02-2024 End: 03-02-2024 Patient encounter procedure OPERATING SYSTEM DESIGNER-C Ajit Spasic Work Phone: [facility] Work Phone: Start: 03-02-2024 End: 03-02-2024 ambulatory OPERATING SYSTEM DESIGNER-C Ajit E Spasic Work Phone: [facility] Work Phone: Start: 03-01-2024 Non-patient / Non-visit OPERATING SYSTEM DESIGNER-C L aura Spasic Work Phone: [facility] Work Phone: Start: 03-01-2024 End: 03-01-2024 Admission to same day surgery center OPERATING SYSTEM DESIGNER-C Ajit Spasic Work Phone: [facility] Work Phone: Start: 03-01-2024 End: 03-01-2024 ambulatory OPERATING SYSTEM DESIGNER-C Ajit E Spasic Work Phone: [facility] Work Phone: Start: 02-21-2024 End: 02-21-2024 ambulatory OPERATING SYSTEM DESIGNER-C Ajti E Spasic Work Phone: [facility] Work Phone: Start: 02-21-2024 End: 02-21-2024 Patient encounter procedure OPERATING SYSTEM DESIGNER-C Ajit Spasic Work Phone: [facility] Work Phone: Start: 02-09-2024 End: 02-09-2024 Patient encounter procedure OPERATING SYSTEM DESIGNER-C Ajit Spasic Work Phone: [facility]-Ultrasound Cntr for Breast Car Start: 02-09-2024 End: 02-09-2024 ambulatory OPERATING SYSTEM DESIGNER-C Ajit E Spasic Work Phone: [facility] Work Phone: Start: 02-04-2024 End: 02-04-2024 Patient encounter procedure OPERATING SYSTEM DESIGNER-C Ajit Spasic Work Phone: [facility] for [facility] Care Work Phone: Start: 02-04-2024 End: 02-04-2024 ambulatory OPERATING SYSTEM DESIGNER-C Ajit E Spasic Work Phone: [facility] Work Phone: Start: 01-21-2024 End: 01-21-2024 ambulatory OPERATING SYSTEM DESIGNER-C Ajit E Spasic Work Phone: [facility] Work Phone: Start: 01-21-2024 End: 01-21-2024 Patient encounter procedure OPERATING SYSTEM DESIGNER-C Ajit Spasic Work Phone: [facility]-Ultrasound [address] [place] Work Phone: Start: 01-18-2024 End: 01-18-2024 ambulatory OPERATING SYSTEM DESIGNER-C Ajit Spasic Work Phone: [facility] Work Phone: Start: 01-18-2024 End: 01-18-2024 Departed Referred OPERATING SYSTEM DESIGNER-C Ajit Polosic Work Phone: [facility] Start: 10-20-2023 End: 10-20-2023 ambulatory CARRI MANUEL Not Available Start: 10-16-2023 End: 10-16-2023 Emergency department patient visit OPERATING SYSTEM DESIGNER-C Ajit Polosic Work Phone: [facility]-Emergency Room Work Phone: Start: 10-07-2023 End: 10-09-2023 Evaluation and management of inpatient OPERATING SYSTEM DESIGNER-C Ajit Spasic Work Phone: [facility] [place] Work Phone: Start: 09-28-2023 End: 09-28-2023 Admission to same day surgery center OPERATING SYSTEM DESIGNER-C Ajit Polosic Work Phone: [facility]-Surgery [place] Start: 09-16-2023 End: 09-16-2023 ambulatory OPERATING SYSTEM DESIGNER-C Ajit E Spasic Work Phone: [facility] Work Phone: Start: 09-16-2023 End: 09-16-2023 Patient encounter procedure OPERATING SYSTEM DESIGNER-C Ajit Polosic Work Phone: [facility]-Pre-Surgical Testing Work Phone: Start: 07-13-2023 End: 07-13-2023 Admission to same day surgery center NA [employer] Work Phone: [facility]-Surgery [place] Start: 07-13-2023 End: 07-13-2023 ambulatory . [facility] [employer] [facility] Work Phone: [facility] Work Phone: Start: 06-30-2023 End: 06-30-2023 ambulatory . [facility] Work Phone: [facility] Work Phone: Start: 06-30-2023 End: 06-30-2023 Patient encounter procedure NA [employer] [facility] Work Phone: [facility]-Pre-Surgical Testing Work Phone: Start: 05-05-2023 (PROC) PROCEDURE Kyler Joyner [facility] Start: 05-05-2023 End: 05-05-2023 Admission to same day surgery center OPERATING SYSTEM DESIGNER-C Ajit Spasic Work Phone: [facility] Work Phone: Start: 05-05-2023 End: 05-05-2023 ambulatory NON STAFF [facility] Work Phone: Start: 05-04-2023 End: 05-04-2023 ambulatory NON STAFF [facility] Work Phone: Start: 05-04-2023 End: 05-04-2023 Departed Referred OPERATING SYSTEM DESIGNER-C Ajit Spasic Work Phone: [facility] Start: 04-26-2023 End: 04-26-2023 Patient encounter procedure OPERATING SYSTEM DESIGNER-C Ajit Spasic Work Phone: [facility]-Lab [address] [place] Work Phone: Start: 04-14-2023 (PROC) PROCEDURE Kyler Joyner [facility] Start: 04-14-2023 End: 04-14-2023 Admission to same day surgery center OPERATING SYSTEM DESIGNER-C Ajit Spasic Work Phone: [facility] Work Phone: Start: 04-14-2023 End: 04-14-2023 ambulatory NON STAFF [facility] Other Start: 04-02-2023 End: 04-02-2023 ambulatory Kyler Miramontes Other [employer] Other Start: 04-02-2023 Office outpatient vi sit 25 minutes Kyler Miramontes [facility] Start: 02-15-2023 End: 02-15-2023 ambulatory AJIT SPASIC Facility:[facility] Start: 02-09-2023 End: 02-09-2023 ambulatory [facility] Work Phone: [facility] Work Phone: Start: 02-09-2023 End: 02-09-2023 Departed Referred Services [facility] Work Phone: [facility] Start: 01-29-2023 End: 01-29-2023 ambulatory AJIT SPASIC Facility:[facility] Start: 11-18-2022 (PROC) PROCEDURE Kyler Miramontes [facility] Out[facility] Start: 11-18-2022 End: 11-18-2022 Admission to same day surgery center Services [facility] Work Phone: [facility] Work Phone: Start: 11-18-2022 End: 11-18-2022 ambulatory Services [facility] Work Phone: [facility] Work Phone: Start: 11-12-2022 End: 11-12-[address] DERICK BORRERO . Facility:[facility] Start: 11-05-2022 End: 11-05-2022 ambulatory Services [facility] Work Phone: [facility] Work Phone: Start: 11-05-2022 End: 11-05-2022 Departed Referred Services [facility] Work Phone: [facility] Start: 11-03-2022 End: 11-03-2022 ambulatory Kyler Miramontes Other [employer] Other Start: 11-03-2022 Office outpatient vi sit 25 minutes Kyler Miramontes [facility] Start: 11-03-2022 End: 11-03-2022 Patient encounter procedure [facility] Work Phone: [facility]-XRay [address] [place] Work Phone: Start: 11-02-2022 End: 11-02-2022 Patient encounter procedure Joshua SILVEIRA [facility] [place] Start: 09-29-2022 End: 09-29-2022 Patient encounter procedure Joshua SILVEIRA [facility] [place] Start: 08-24-2022 End: 08-24-2022 Patient encounter procedure Joshua SILVEIRA [facility] Start: 07-31-2022 End: 07-31-2022 Patient encounter procedure Joshua SILVEIRA [facility] [place] Start: 07-08-2022 End: 07-08-2022 ambulatory [facility] Work Phone: [facility] Work Phone: Start: 07-08-2022 End: 07-08-2022 Patient encounter procedure [facility] Work Phone: [facility]Lab [place] Start: 06-24-2022 End: 06-24-2022 Patient encounter procedure [facility] Work Phone: [facility]-MRI [place] Start: 06-17-2022 End: 06-17-2022 Patient encounter procedure [facility] Work Phone: [facility]-Ultrasound [place] Start: 06-09-2022 End: 06-09-2022 Patient encounter procedure [facility] Work Phone: [facility]-Ultrasound [place] Start: 06-02-2022 End: 06-02-2022 Departed Referred [facility] Work Phone: [facility] Start: 05-27-2022 End: 05-27-2022 Registered Recurring Services [facility] Work Phone: [facility]Cancer Center Start: 05-07-2022 End: 05-07-2022 Patient encounter procedure [facility] Work Phone: [facility] [place] Start: 05-01-2022 End: 05-01-2022 Emergency department patient visit [facility] Work Phone: [facility]-Emergency Room Start: 05-01-2022 End: 05-01-2022 Patient encounter procedure [facility] Work Phone: [facility]-XRay [place] Start: 04-30-2022 End: 04-30-2022 Departed Referred [facility] Work Phone: [facility] Start: 04-29-2022 End: 04-29-2022 Emergency department patient visit [facility] Work Phone: [facility]-Emergency Room Start: 03-04-2022 (Procedure) Jaxon Miramontes [employer] [facility] Start: 03-04-2022 End: 03-04-2022 ambulatory Kyler Miramontes Other [employer] Other Start: 02-19-2022 End: 02-19-2022 ambulatory Kyler Miramontes Other [employer] Other Start: 02-19-2022 Office outpatient vi sit 25 minutes Kyler Fe [facility] Start: 02-11-2022 (Procedure) Jaxon Miramontes [facility] Start: 02-11-2022 End: 02-11-2022 ambulatory Kyler Miramontes Other [employer] Other Start: 01-28-2022 End: 01-28-2022 ambulatory Kyler Miramontes Other [facility] Other Start: 01-28-2022 Office consultation new/estab patient 60 min Kyler Miramontes [facility] Start: 01-14-2022 End: 01-14-2022 ambulatory Girish Elsdeb Other [facility] Other Start: 01-14-2022 Office outpatient ne w 30 minutes Girish Callaway [facility] Start: 01-21-2021 End: 01-21-2021 Departed Referred Services [facility] [email or web address] Work Phone: -[facility] Start: 12-24-2020 End: 12-24-2020 Patient encounter procedure Ajit Spasic -MRI [facility] Start: 12-03-2020 End: 12-03-2020 Patient encounter procedure Ajit Spasic -MRI [facility] Start: 12-02-2020 End: 12-02-2020 Patient encounter procedure Ajit Spasic -MRI [facility] Start: 11-05-2020 End: 11-05-2020 Departed Referred Ajit Millanc -[place] [facility] Start: 10-22-2020 End: 10-22-2020 Patient encounter procedure Ajit Spasic -XRay [facility] Start: 09-23-2020 End: 09-23-2020 Patient encounter procedure Ajit Spasic -Lab [facility] Procedures Date Procedure Procedure Detail Performing Clinician Start: 07-06-2024 Plain chest X-ray OPERATING SYSTEM DESIGNER-C Ajit Spasic Work Phone: Start: 07-06-2024 Computed tomography of abdomen and pelvis with contrast OPERATING SYSTEM DESIGNER-C Ajit Spasic Work Phone: Start: 06-08-2024 MR lumbar spine wo con OPERATING SYSTEM DESIGNER-C Ajit Spasic Work Phone: Start: 03-16-2024 Screening colonoscopy OPERATING SYSTEM DESIGNER-C Ajit Spasic Work Phone: Start: 03-02-2024 X-ray of lumbar spine, four views OPERATING SYSTEM DESIGNER-C Ajit Spasic Work Phone: Start: 03-01-2024 Injection of local anesthetic into sacroiliac joint OPERATING SYSTEM DESIGNER-C Ajit Millanc Work Phone: Start: 02-09-2024 Ultrasonography of right breast OPERATING SYSTEM DESIGNER-Jorge Pettit Work Phone: Start: 02-04-2024 Screening mammography of bilateral breasts OPERATING SYSTEM DESIGNER-C Ajit Pettit Work Phone: Start: 01-21-2024 Ultrasonography of bilateral kidneys OPERATING SYSTEM DESIGNER-C Ajit Pettit Work Phone: Start: 10-09-2023 Stool culture for bacteria OPERATING SYSTEM DESIGNER-C Ajit villagomez Work Phone: Start: 10-08-2023 Computed tomography of abdomen and pelvis with contrast OPERATING SYSTEM DESIGNER-Jorge Pettit Work Phone: Start: 09-28-2023 Total hysterectomy via vaginal approach OPERATING SYSTEM DESIGNER-Jorge Pettit Work Phone: Start: 07-13-[address] [facility] Work Phone: Start: 05-05-2023 Injection of local anesthetic into sacroiliac joint OPERATING SYSTEM DESIGNER-C Ajit Millanc Work Phone: Start: 05-04-2023 [facility]rine [facility] Work Phone: Start: 04-26-2023 Radiography of thoracic spine OPERATING SYSTEM DESIGNER-Jorge Pettit Work Phone: Start: 04-14-2023 Epidural injection of lumbar spine using fluoroscopic guidance OPERATING SYSTEM DESIGNER-C Ajit Millanc Work Phone: Start: 02-09-2023 Urine culture OPERATING SYSTEM DESIGNER-C Ajit Millanc Work Phone: Start: 11-18-2022 Injection of spinal epidural space Services [facility] Work Phone: Start: 11-05-2022 Urine culture Services [facility] Work Phone: Start: 11-03-2022 X-ray of cervical spine Services [facility] Work Phone: Start: 08-24-2022 Cystourethroscopy with dilation of urethral stricture Joshua SILVEIRA Start: 06-24-2022 MRI of head Services [employer] Phone: Start: 06-17-2022 Transvaginal echography Services [employer] [facility] [employer] Work Phone: Start: 06-17-2022 Pelvic echography Services [facility] [employer] Work Phone: Start: 06-09-2022 US scan of bladder Services [facility] [employer] Phone: Start: 05-01-2022 Computed tomography of abdomen and pelvis with contrast Services [facility] [employer] Phone: Start: 05-01-2022 X-ray of right knee Services [facility] [employer] Phone: Start: 04-29-2022 X-ray of left ankle Services [employer] Phone: Start: 12-24-2020 MRI of left shoulder Ajit Spasic Start: 12-03-2020 MR lumbar spine wo con Ajit Spasic Start: 12-02-2020 MRI of cervical spine with contrast Ajit Spasic Start: 12-02-2020 MRI of head Ajit Spasic Start: 10-22-2020 X-ray of lumbar spine, two or three views Ajit Spasic Start: 10-22-2020 XR hip LT 2V Ajit Spasic Start: 09-23-2020 Radiography of cervical spine Ajit Spasic Appendectomy Joshua SILVEIRA Blood culture for ba cteria, including anaerobic screen Services [facility] [employer] Phone: Blood culture for ba cteria, including anaerobic screen Services [employer] Phone: Cholecystectomy Joshua SILVEIRA H/O: hysterectomy S/P hysterectomy OPERATING SYSTEM DESIGNER-C L aura Spasic Work Phone: H/O: hysterectomy Status post hysterectomy OPERATING SYSTEM DESIGNER-C Ajit Spasic Work Phone: Urine culture [facility] Work Phone: Plan of Treatment Date Care Activity Detail Author Start: 01-18-2025 Urine culture [facility] Start: 01-18-2025 Bacteria identified in Urine by Culture Urine Culture [facility] Start: 07-24-2024 Ultrasonography of right breast US breast RT limited [facility] Start: 03-16-2024 [facility] Start: 03-01-2024 [facility] Start: 10-16-2023 Bacteria identified in Blood by Culture [facility] Start: 10-16-2023 [facility] Start: 10-09-2023 Stool culture Stool Culture [facility] Start: 10-09-2023 [facility] Start: 10-09-2023 Referral to television news video editor [facility] Start: 10-08-2023 Hospital admission [facility] Start: 10-08-2023 [facility] Start: 10-07-2023 Referral to clinical human resources records clerk [facility] Start: 09-28-2023 Hospital admission [facility] Start: 09-28-2023 [facility] Start: 07-13-2023 End: 07-13-2023 [facility] Start: 05-05-2023 [facility] Start: 05-04-2023 Bacteria identified in Urine by Culture Urine Culture [facility] Start: 05-04-2023 Urine culture Urine Culture [facility] Start: 04-14-2023 [facility] Start: 02-09-2023 Bacteria identified in Urine by Culture [facility] Start: 11-18-2022 [facility] Start: 11-05-2022 Bacteria identified in Urine by Culture [facility] Start: 06-02-2022 End: 06-02-2022 Departed Referred Departed Referred [facility] Start: 05-27-2022 Registered Recurring Iron deficiency [facility] Start: 05-27-2022 [facility] Start: 05-07-2022 End: 05-07-2022 Patient encounter procedure Departed Clinical [facility] Ctr-Lab [place] Start: 05-01-2022 Computed tomography of abdomen and pelvis with contrast CT abdomen pelvis w con [facility] Start: 05-01-2022 End: 05-01-2022 Emergency department patient visit Departed Emergency [facility]-Emergency Room Atopobium vaginae DN A [Presence] in Vaginal fluid by NAYELY with probe detection [facility] Bacterial vaginosis associated bacterium 2 DNA [Presence] in Vaginal fluid by NAYELY with probe detection [facility] Chlamydia trachomati s rRNA [Presence] in Cervix by NAYELY with probe detection [facility] Glucose measurement estimated from glycated hemoglobin [facility] Glucose measurement estimated from glycated hemoglobin [facility] Hemoglobin A1c/Hemoglobin.total in Blood [facility] Human papilloma viru s 16+18+31+33+35+39+45+51+52+ 56+58+59+66+68 DNA [Presence] in Cervix by Probe with signal amplification [facility] Human papilloma viru s 16+18+31+33+35+39+45+51+52+ 56+58+59+68 DNA [Presence] in Cervix by Probe with signal amplification [facility] Megasphaera sp type 1 DNA [Presence] in Vaginal fluid by NAYELY with probe detection [facility] Neisseria gonorrhoea e rRNA [Presence] in Cervix by NAYELY with probe detection [facility] Patient Education [facility] Work Phone: Patient referral [facility] Work Phone: XR Lumbar spine 4 Views [facility] Immunizations Immunization Date Immunization Notes Care Provider Fa cilijaime 09-19-2021 COVID-19 mRNA, Comirnaty (Pfizer) NA [employer] Work Phone: [facility] 08-29-2021 COVID-19 mRNA, Comirnaty (Pfizer) NA [employer] Work Phone: [facility] NEGATED: Highlighted row has not occurred!10-27-2019 influenza virus vaccine, live, attenuated, for intranasal use Joshua SILVEIRA [facility] [place] Payers Date Payer Category Payer Unknown [id number] 2024 Unknown [id number] 2024 Self-pay [id number] 2024 Unknown [id number] 1979 Unknown [id number] 2.16.84 [id number] 1979 Unknown [id number] 2.16.84 [id number] 1979 Unknown [id number] 2.16.84 [id number] 1979 Unknown [id number] 2.16.84 [id number] 1979 Unknown [id number] 2.16.8 [id number] 1979 Unknown [id number] 2.16.8 [id number] 1979 Unknown [id number] 2.16.8 [id number] 1979 Unknown [id number] 2.16.8 [id number] 1979 Unknown [id number] 2.16.8 [id number] 1960 Medicaid [id number] Unknown [id number] Unknown [id number] 2.16.8 40.1.918904.3.579.2.531 Unknown [id number] 2.16.8 40.1.711261.3.579.2.531 Unknown [id number] 2.16.8 40.1.401991.3.579.2.531 Unknown [id number] 2.16.8 40.1.667461.3.579.2.531 Unknown [id number] 2.16.8 40.1.081271.3.579.2.531 Unknown [id number] 2.16.8 40.1.224378.3.579.2.531 Unknown [id number] 2.16.8 40.1.033040.3.579.2.531 Unknown [id number] 2.16.8 40.1.217350.3.579.2.531 Unknown [id number] 2.16.8 40.1.400925.3.579.2.531 Unknown [id number] 2.16.8 40.1.910997.3.579.2.531 Unknown [id number] 2.16.8 40.1.900294.3.579.2.531 Unknown [id number] 2.16.8 40.1.358593.3.579.2.531 Unknown [id number] 2.16.8 40.1.539260.3.579.2.531 Social History Date Type Detail Facility Start: 09-25-2019 End: 09-05-2024 Tobacco smoking status NHIS Smoker (finding) [facility] Start: 1980 Sex Assigned At Female [facility] Sex Assigned At [facility] Start: 07-31-2022 Tobacco smoking status Heavy t obacco smoker (finding) [facility] [place] Start: 03-01-2024 End: 03-16-2024 Tobacco smoking status [facility] Current some day smoker [facility] Sexual Orientation [facility] Start: 01-15-2010 End: 01-20-2025 Sex Female (finding) [facility] NEGATED: Highlighted row [facility] Goals Date Patient Goal Desired Activity /State Functional Status Date Assessment Result Facility 01-24-2025 Functional Status N/A [facility] 07-09-2024 Functional Status N/A [facility] 10-09-2023 Functional status Patient at [facility] Work Phone: 11-02-2022 Functional Status N/A [facility] 08-24-2022 Functional Status N/A [facility] 07-31-2022 Functional Status N/A [facility] Mental Status Date Assessment Result Facility 10-09-2023 Cognitive function Cognitive Sta tus Patient at [facility] Work Phone: Clinical Notes 01-14-2022 to 01-24-2025 Note Date & Type Note Facility 01-24-2025 Hospital Discharg e instructions Patient Education 01/24/2025 12:25:32 Urinary Tract Infection, Adult, Guoc-io-Wftt Urinary Tract Infection, Adult A urinary tract infection (UTI) is an infection of any part of the urinary tract. The urinary tract includes: The kidneys. The ureters. The bladder. The urethra. These organs make, store, and get rid of pee (urine) in the body. What are the causes? This infection is caused by germs (bacteria) in your genital area. These germs grow and cause swelling (inflammation) of your urinary tract. What increases the risk? The following factors may make you more likely to develop this condition: Using a small, thin tube (catheter) to drain pee. Not being able to control when you pee or poop (incontinence). Being female. If you are female, these things can increase the risk: ?Using these methods to prevent : ?A medicine that kills sperm (spermicide). ?A device that blocks sperm (diaphragm). ?Having low levels of a female hormone (estrogen). ?Being . You are more likely to develop this condition if: You have genes that add to your risk. You are sexually active. You take antibiotic medicines. You have trouble peeing because of: ?A prostate that is bigger than normal, if you are male. ?A blockage in the part of your body that drains pee from the bladder. ?A kidney stone. ?A nerve condition that affects your bladder. ?Not getting enough to drink. ?Not peeing often enough. You have other conditions, such as: ?Diabetes. ?A weak disease-fighting system (immune system). ?Sickle cell disease. ?Gout. ?Injury of the spine. What are the signs or symptoms? Symptoms of this condition include: Needing to pee right away. Peeing small amounts often. Pain or burning when peeing. Blood in the pee. Pee that smells bad or not like normal. Trouble peeing. Pee that is cloudy. Fluid coming from the vagina, if you are female. Pain in the belly or lower back. Other symptoms include: Vomiting. Not feeling hungry. Feeling mixed up (confused). This may be the first symptom in older adults. Being tired and grouchy (irritable). A fever. Watery poop (diarrhea). How is this treated? Taking antibiotic medicine. Taking other medicines. Drinking enough water. In some cases, you may need to see a specialist. Follow these instructions at home: Medicines Take tvpi-eks-iysfxno and prescription medicines only as told by your doctor. If you were prescribed an antibiotic medicine, take it as told by your doctor. Do not stop taking it even if you start to feel better. General instructions Make sure you: ?Pee until your bladder is empty. ?Do not hold pee for a long time. ?Empty your bladder after sex. ?Wipe from front to back after peeing or pooping if you are a female. Use each tissue one time when you wipe. Drink enough fluid to keep your pee pale yellow. Keep all follow-up visits. Contact a doctor if: You do not get better after 1 2 days. Your symptoms go away and then come back. Get help right away if: You have very bad back pain. You have very bad pain in your lower belly. You have a fever. You have chills. You feeling like you will vomit or you vomit. Summary A urinary tract infection (UTI) is an infection of any part of the urinary tract. This condition is caused by germs in your genital area. There are many risk factors for a UTI. Treatment includes antibiotic medicines. Drink enough fluid to keep your pee pale yellow. This information is not intended to replace advice given to you by your health care provider. Make sure you discuss any questions you have with your health care provider. Document Revised: 04/27/2021 Document Reviewed: 05/02/2021 [employer] Patient Education 2023 [employer]. Follow Up Care 01/24/2025 11:32:42 With:AJIT PETTIT Address: [address] [place] [address]- Business (1) When:01/27/2025 12:15:31 Comments:Call Dr for diagnosis based follow up [facility] 01-24-2025 Evaluation + Plan note Extrac cherie from: Title:ED Note Author:Tanvir RIVAS, Hussein Boswell te:01/24/25 UTI symptoms (R39.9: Unspeci fied symptoms and signs involving the genitourinary system) Orders: ciprofloxacin, 500 mg = 1 tab(s), Oral, q12hr, X 3 day(s), # 6 tab(s), Refills(s) 0, Pharmacy: [facility]/pharmacy #[id number], 165, cm, 01/24/25 11:37:00 EDT, Height/Length Dosing, 70.1, kg, 01/24/25 11:37:00 EDT, Weight Dosing fluconazole, 300 mg = 2 tab(s), Tab, Oral, Once, Stop date 01/24/25 12:04:00 EDT, STAT, Start date 01/24/25 12:04:00 EDT, 01/24/25 12:04:00 EDT fluconazole, 150 mg = 1 tab(s), Oral, q7day, take on 01/31/2025, # 2 tab(s), Refills(s) 0, Pharmacy: [facility]/pharmacy #[id number], 165, cm, 01/24/25 11:37:00 EDT, Height/Length Dosing, 70.1, kg, 01/24/25 11:37:00 EDT, Weight Dosing ondansetron, 4 mg = 1 tab(s), Tab-Dis, Oral, Once, Stop date 01/24/25 12:04:00 EDT, STAT, Start date 01/24/25 12:04:00 EDT, 01/24/25 12:04:00 EDT ondansetron, 4 mg = 1 tab(s), Oral, q8hr, PRN Nausea/Vomiting, # 12 tab(s), Refills(s) 0, [id number], 165, cm, 01/24/25 11:37:00 EDT, Height/Length Dosing, 70.1, kg, 01/24/25 11:37:00 EDT, Weight Dosing phenazopyridine, 100 mg = 1 tab(s), Oral, TID, X 7 day(s), # 21 tab(s), Refills(s) 0, [id number], 165, cm, 01/24/25 11:37:00 EDT, Height/Length Dosing, 70.1, kg, 01/24/25 11:37:00 EDT, Weight Dosing phenazopyridine, 100 mg = 1 tab(s), Tab, Oral, Once, Stop date 01/24/25 12:04:00 EDT, STAT, Start date 01/24/25 12:04:00 EDT, 01/24/25 12:04:00 EDT [facility] 04-23-2025 NoteED Patient Education Note Obstetrics and Gynecology Urinary Tract Infection, Adult A urinary tract infection (UTI) is an infection of any part of the urinary tract. The urinary tractincludes: ??? The kidneys. ??? The ureters. ??? The bladder. ??? The urethra. These organs make, store, and get rid of pee (urine) in the body. What are the causes? This infection is caused by germs (bacteria) in your genital area. These germs grow and cause swelling (inflammation) of your urinary tract. What increases the risk? The following factors may make you more likely to develop this condition: ??? Using a small, thin tube (catheter) to drain pee. ??? Not being able to control when you pee or poop (incontinence). ??? Being female. If you are female, these things can increase the risk: ? Using these methods to prevent : ? A medicine that kills sperm (spermicide). ? A device that blocks sperm (diaphragm). ? Having low levels of a female hormone (estrogen). ? Being . You are more likely to develop this condition if: ??? You have genes that add to your risk. ??? You are sexually active. ??? You take antibiotic medicines. ??? You have trouble peeing because of: ? A prostate that is bigger than normal, if you are male. ? A blockage in the part of your body that drains pee from the bladder. ? A kidney stone. ? A nerve condition that affects your bladder. ? Not getting enough to drink. ? Not peeing often enough. ??? You have other conditions, such as: ? Diabetes. ? A weak disease-fighting system (immune system). ? Sickle cell disease. ? Gout. ? Injury of the spine. What are the signs or symptoms? Symptoms of this condition include: ??? Needing to pee right away. ??? Peeing small amounts often. ??? Pain or burning when peeing. ??? Blood in the pee. ??? Pee that smells bad or not like normal. ??? Trouble peeing. ??? Pee that is cloudy. ??? Fluid coming from the vagina, if you are female. ??? Pain in the belly or lower back. Other symptoms include: ??? Vomiting. ??? Not feeling hungry. ??? Feeling mixed up (confused). This may be the first symptom in older adults. ??? Being tired and grouchy (irritable). ??? A fever. ??? Watery poop (diarrhea). How is this treated? Taking antibiotic medicine. ??? Taking other medicines. ??? Drinking enough water. In some cases, you may need to see a specialist. Follow these instructions at home: Medicines ??? Take keye-kyw-wsjdabd and prescription medicines only as told by your doctor. ??? If you were prescribed an antibiotic medicine, take it as told by your doctor. Do not stop taking it even if you start to feel better. General instructions ??? Make sure you: ? Pee until your bladder is empty. ? Do not hold pee for a long time. ? Empty your bladder after sex. ? Wipe from front to back after peeing or pooping if you are a female. Use each tissue one time when you wipe. ??? Drink enough fluid to keep your pee pale yellow. ??? Keep all follow-up visits. Contact a doctor if: ??? You do not get better after 1?2 days. ??? Your symptoms go away and then come back. Get help right away if: ??? You have very bad back pain. ??? You have very bad pain in your lower belly. ??? You have a fever. ??? You have chills. ??? You feeling like you will vomit or you vomit. Summary ??? A urinary tract infection (UTI) is an infection of any part of the urinary tract. ??? This condition is caused by germs in your genital area. ??? There are many risk factors for a UTI. ??? Treatment includes antibiotic medicines. ??? Drink enough fluid to keep your pee pale yellow. This information is not intended to replace advice given to you by your health care provider. Make sure you discuss any questions you have with your health care provider. Document Revised: 04/27/2021 Document Reviewed: 05/02/2021 [employer] Patient Education ? 2023 [employer].[facility] 07-09-2024 Hospital Discharge instructions Patient Education 07/09/2024 14:17:29 Dehydration, Adult Dehydration, Adult Dehydration is a condition in which there is not enough water or other fluids in the body. This happens when a person loses more fluids than they take in. Important organs, such as the kidneys, brain, and heart, cannot function without a proper amount of fluids. Any loss of fluids from the body canlead to dehydration. Dehydration can be mild, moderate, [...] that is high in altitude, where thinner, drier helper air causes more fluid loss. Doing exercises [...] of fat or sugar. General instructions Take pzke-ysv-nqbtywk and prescription medicines only as told by [...] provider. Document Revised: 04/19/2023 Document Reviewed: 04/19/2023 [employer] Patient Education 2023 [employer]. 07/09/2024 14:17:29 Viral Illness, Adult Viral Illness, [...] Medicines to treat symptoms. These can include zazy-eku-pieaoeb medicine for pain and fever, medicines for cough or congestion, and medicines for diarrhea. Antiviral medicines. These medicines are available only for certain types of viruses. Some viral illnesses can be prevented with vaccinations. A common example is the flu shot. Follow these instructions at home: Medicines Take moxa-xtz-ttmubhh and prescription medicines only as told by [...] can lead to antibiotic resistance. When this develops,the medicine no longer works against the bacteria [...] and water are not available, use hand plastic mould maker. Avoid touching your nose, eyes, and [...] provider. Document Revised: 10/06/2023 Document Reviewed: 07/21/2023 [employer] Patient Education 2023 [employer]. Follow Up Care 07/09/2024 12:40:30 With:AJIT PETTIT Address: [address] [id number]- [facility] (1) When:07/12/2024 14:17:20 Comments:Call the office [...] you develop any new or worsening symptoms. [facility] 10-06-2024 NoteED Patient Education Note Infectious Disease Viral Illness, [...] Medicines to treat symptoms. These can include veji-ddt-griuqma medicine for pain and fever, medicines for cough or congestion, and medicines for diarrhea. ? Antiviral medicines. These medicines are available only for certain types of viruses. Some viral illnesses can be prevented with vaccinations. A common example is the flu shot. Follow these instructions at home: Medicines ? Take hsni-lns-tohvvkg and prescription medicines only as told by [...] have, or are at risk for, a bacterialinfection and you have a viral infection. ? [...] and water are not available, use hand plastic mould maker. ? Avoid touching your nose, eyes, and mouth, especial (more content not included)...[facility]10-06-2024 NoteED Patient Education Note Infectious Disease Viral Illness, [...] Medicines to treat symptoms. These can include yqwa-mvd-pbhpbdg medicine for pain and fever, medicines for cough or congestion, and medicines for diarrhea. ? Antiviral medicines. These medicines are available only for certain types of viruses. Some viral illnesses can be prevented with vaccinations. A common example is the flu shot. Follow these instructions at home: Medicines ? Take gnoi-gew-otcfcvy and prescription medicines only as told by [...] have, or are at risk for, a bacterialinfection and you have a viral infection. ? [...] and water are not available, use hand plastic mould maker. ? Avoid touching your nose, eyes, and mouth, especial (more content not included)...[facility]10-06-2024 Evaluation + Plan note Extracted from: Title:ED Note Author:Ambrose Cedeño DO Date: Malaise (R53.81: Other malai se) Viral syndrome (B34.9: Viral infection, unspecified) Orders: Basic Metabolic Panel Beta hCG Qual CBC w/ Auto Diff ED Cardiac Monitoring eGFR Hepatic Function Panel Oxygen Saturation Oxygen Therapy PT & PTT Saline Lock Insert Troponin 0 Hr. Troponin 1 Hr. XR Chest Single View [facility] 06-13-2024 Procedure [facility]05-29-2024 Procedure [facility]01-06-2024 Discharge summary Author Salazar Cabrera [facility] October 09, 2023 6:42pm Note Date/Time October 09, 2023 1: 22pm [facility] [address] [id number] Discharge Summary Signed Patient: Rachel Mcgarry MR#: [id number] : 1980 Acct:[id number] Age/Sex: 43 / F Adm Date: 4 Loc: Room: [address] [place] [address]: Salazar Cabrera DO Copies to: OLEG Sharp APRN Shawn J Warner, DO~ Providers Date of Admission: 10/08/23 Date of Discharge: 10/09/23 Discharging Provider: Salazar Cabrera Additional Discharging Provider: Salazar Cabrera Primary Care Provider: Ajit Pettit Consults: 10/07/23 23:27 Consult to Adult Hospitalist Routine 10/08/23 07:21 Consult to interventional physiatrist Routine 10/09/23 06:50 Consult to Obstetrics Routine [...] abdominal pain. CT abdomen pelvis done at [facility] showed nonspecific hyperemia and thickening of the small bowel distally suggestive of enteritis but nonacute otherwise and no postoperative complications were noted. She was transferred to [facility] for evaluation by recent surgical team. She was noted to have elevated lactate and given IV hydration as well as Zosyn. Lactate resolved with hydration. She had repeat CTdone at [place] with bloating and pain increasing with liquid intake unchangedfrom previous and no surgical complications again noted. [employer] services followed ongoing through hospital stay. She was also seen by psychiatry with increase insertraline due to reports of depression and suicidal thoughts, should follow-up with [facility] behavioral health after discharge. Date [...] % (Auto) 70.1, Lymph % (Auto) 16.5, [place] % (Auto) 9.5, Eos % (Auto) 3.5, Baso % (Auto) 0.4, Nucleat RBC Rel Count 0.1, Neut # (Auto) 9.6 H, Lymph # (Auto) 2.2, [place] # (Auto) 1.3 H, Eos # (Auto) [...] signed by Salazar Cabrera DO> 10/09/23 1842 [facility] Work Phone: 1(980) 576-701901-06-2024 Progress note Author BONG Velez [facility] October 09, 2023 8:22am Note Date/Time October 09, 2023 8: 22am [facility] [address] [place] [address] Progress Note Signed Patient: Rachel Mcgarry MR#: [id number] : 1980 Acct:[id number] Age/Sex: 43 / F Adm Date: 4 Loc: Room: [address] [place] [address] Type: ADM IN Attending Dr: Salazar Cabrera [...] % (Auto) 70.1, Lymph % (Auto) 16.5, [place] % (Auto) 9.5, Eos % (Auto) 3.5, Baso % (Auto) 0.4, Nucleat RBC Rel Count 0.1, Neut # (Auto) 9.6 H, Lymph # (Auto) 2.2, [place] # (Auto) 1.3 H, Eos # (Auto) 0.5 H, Baso # (Auto) 0.1 10/08/23 22:27: POC Glucose 194 10/08/23 18:21: POC Glucose 265, POC Glucose Comment Glu2: cleaned meter 10/08/23 13:07: POC Glucose 166, POC Glucose Comment Glu2: cleaned meter 10/08/23 10:31: Lactic Acid 1.9 10/08/23 08:20: Urine Color [place] A, Urine Appearance Turbid A, Urine pH 5.5, Ur Specific [place] > 1.050 H, Urine Protein 30 H, [...] <Electronically signed by BONG Velez> 10/09/23 0822 [facility] Work Phone: 1(252) 166-835201-05-2024 Consult note Author Teo crandall [facility] October 08, 2023 4:59pm Note Date/Time October 08, 2023 11 :30am [facility] [address] [place] [address] Psychiatry Consult Note Signed with Addenda Patient: Rachel Mcgarry MR#: [id number] : 1980 Acct:[id number] Age/Sex: 43 / F Adm Date: 4 Loc: Room: 2I2877-1 Type : ADM IN Attending Dr: Rosanna Grullon MD Copies to: MD Rosanna Rangel MD Laura E Spasic, NP-C~ ADDENDUM1 No need for 15 min face check as patient contracts for safety. Addendum Documented By: Teo Taylor MD 10/08/231658 Addendum Signed By: <Electronically signed by Teo Taylor MD> 10/08/231658 HPI Consult Date: 10/08/23 Requesting Physician: Beltran Velez MD-NOMS Primary Care Provider: OLEG Sharp Consult [...] negative unless noted below or in HPI [facility] Medical History (Updated 10/08/23 @ [...] Color Urine Appearance Urine pH Ur Specific [place] Urine Protein Urine Glucose (UA) Urine Ketones Urine Occult Blood Urine Nitrite Ur Leukocyte Esterase Urine RBC Urine WBC 10/08/23 08:20 RBC Hgb Hct MCV MCH MCHC RDW Plt Count MPV Sodium Potassium Chloride Carbon Dioxide Anion Gap BUN Creatinine Calcium Total Bilirubin AST ALT Alkaline Phosphatase Total Protein Albumin Urine Color [place] A Urine Appearance Turbid A Urine pH 5.5 Ur Specific [place] > 1.050 H Urine Protein 30 H [...] signed by Teo Taylor MD> 10/08/23 1416 [facility] Work Phone: 1(681) 880-724401-05-2024 Progress note Author Salazar Cabrera [facility] October 08, 2023 4:41pm Note Date/Time October 08, 2023 11 :44am [facility] [address] [place] [address] Hospitalist Progress Note Signed Patient: Rachel Mcgarry MR#: [id number] : 1980 Acct:[id number] Age/Sex: 43 / F Adm Date: 4 Loc: Room: [address] [place] [address] Type: ADM IN Attending Dr: Rosanna Grullon [...] Insuln.Pen SUBCUT 10/07/24 05:59 1 units Q6HR [facility] Administration Protocol Ondansetron HCl 4 mg 10/07/23 22:54 10/08/23 08:37 Ondansetron 4 Mg/2 Ml Vial IV-PUSH 10/06/24 22:53 4 mg Q8H PRN Administration Nausea And Vomiting Ondansetron HCl 4 mg 10/07/23 22:54 Ondansetron Odt 4 Mg Tab.Rapdis PO 10/06/24 22:53 Q8HR PRN Nausea And Vomiting Sertraline HCl 150 mg 10/09/23 09:00 Sertraline 50 Mg Tablet PO 10/08/24 08:59 DAILY [facility] A&P - Hospitalist Assessment/Plan (1) Abdominal pain: (2) Metabolic acidosis: (3) S/P hysterectomy: (4) T2DM (type 2 diabetes mellitus): (5) Enteritis: (6) Leucocytosis: (7) IBS (irritable bowel syndrome): Plan Abdominal pain Recent hysterectomy/bilateral salpingectomy 09/28/2023 History IBS?D Enteritis Lactic acidosis chronic leukocytosis -CT abdomen pelvis?from [facility] showed nonspecific hyperemia and thickening of small bowel distally suggestive of enteritis, nonacute otherwise, no postsurgical complications noted -Repeat CT abdomen pelvis?increasing bibasilar atelectasis, fatty liver, no bowel or urinary tract obstruction, no pelvic hematoma or significant free fluid, otherwise unchanged CT abdomen pelvis -Initial lactate 3.0--> 2.6--> 2.0--> 1.9 -Continue Zosyn, IVF. Afebrile. Scheduled dicyclomine. Symptom management -Advance diet to full liquid -[employer] following Depression -Seen by psychiatry with increase [...] signed by Salazar Cabrera DO> 10/08/23 1641 [facility] Work Phone: 1(724) 349-148301-05-2024 History and physical note Author BONG Velez [facility] October 08, 2023 1:07pm Note Date/Time October 08, 2023 7: 21am [facility] [address] [place] [address] [employer] History & Physical Signed with Addenda Patient: Rachel Mcgarry MR#: [id number] : 1980 Acct:[id number] Age/Sex: 43 / F Adm Date: 4 Loc: Room: [address] [place] [address] Type: ADM IN Attending Dr: Beltran Velez [...] has enteritis. She is cleared from the [employer] post op standpoint and we are signing off. Pt will be transferred to a medical floor for continued management. Addendum Documented By: BONG Velez 10/08/23 1307 Addendum Signed By: <Electronically signed by BONG Velez> 10/08/23 1307 Date of Service: 10/08/2023 [employer] - HPI History of Present Illness Chief Complaint: Abdominal pain with emesis Planned Procedure: S/P TLH 09/28/2023 HPI: Rachel presented to [facility] yesterday with abdominal pain/distension and emesis.Her lactic acid was 3.0,WBS 20k in ER,Sodium [address] scan compatible with enteritis. She was transferred to [facility] for observation and treatment. Pt with Chronic leukocytosis as followed by hematology for 2 years Review of Systems Review of Systems All other systems reviewed & are negative unless noted below or in HPI [facility] Medical History (Updated 10/08/23 @ [...] Units/3 Ml Insuln.Pen) 0 units SUBCUT Q6HR [facility]; Protocol Stop: 10/07/24 05:59 Last Admin: 10/08/23 06:27 Dose: 1 units Ondansetron HCl (Ondansetron 4 Mg/2 Ml Vial) 4 mg IV-PUSH Q8H PRN PRN Reason: Nausea And Vomiting Stop: 10/06/24 22:53 Ondansetron HCl (Ondansetron Odt 4 Mg Tab.Rapdis) 4 mg PO Q8HR PRN PRN Reason: Nausea And Vomiting Stop: 10/06/24 22:53 COMMER[employer]UM[employer] - Exam Physical Exam Vital signs: Temp [...] Present normal affect, suicidal ideation and 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 - Results Laboratory Results - Last 48 [...] Albumin 3.7, Globulin 2.4, Albumin/Globulin Ratio 1.5 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 - A/P (1) Abdominal pain: Plan: Post [...] By: <Electronically signed by BONG Velez> 10/08/23 93[address] [facility] Work Phone: [phone]) 298-834801-05-2024 Consult note Author Rosanna Grullon [facility] October 08, 2023 7:00am Note Date/Time October 08, 2023 1: 06am [facility] [address] [place] [address] Hospitalist Consult Note Signed Patient: Rachel Mcgarry MR#: [id number] : 1980 Acct:[id number] Age/Sex: 43 / F Adm Date: 4 Loc: Room: [address] [place] [address] Type: ADM IN Attending Dr: Beltran Velez MD Copies to: MD Ajit Davis, OPERATING SYSTEM DESIGNER-C Namrata Munoz, BONG Frederick~ HPI DATE OF CONSULTATION: 10/08/23 REQUESTING PROVIDER: Beltran Velez Consult Narrative Reason for Consult: elevated lactic acid, T2DM, leukocytosis HPI: Ms. Mcgarry is a 43-year-old female with a PMH of T2DM, seizure disorder, recent hysterectomy that was transferred here to [facility] to obstetrics for abdominal pain. Hospitalist team has been consulted for management of T2DM, elevated lactic acid and leukocytosis. Patient arrived to the [facility] emergency room via EMS for [...] 28. She been seen in the [facility] emergency room for vaginal infection [...] unless noted in the HPI or below. [facility] Medical History (Updated 10/08/23 @ [...] to CT dyereceived at the [facility] Documented By: Namrata Munoz APRN 10/08/23 0106 Signed By: <Electronically signed by CHRISTINA Munoz> 10/08/23 0153 <Electronically signed by Rosanna Grullon MD> 10/08/23 0700 [facility] Work Phone: 1([phone]) 400-156308-02-2023 [facility]06-30-2023 Evaluation note* Encounter Date Diagnosis Assessment [...] activities and movements while managing her pain. [employer] Other 01-31-2023 Evaluation note* Encounter Date Diagnosis [...] cervical spine to further evaluate her pain. [employer] Other 01-30-2023 Hospital Discharge instructions Patient Education [...] to keep your urine pale yellow. ?Take biew-mlj-uhkljop or prescription medicines. ?Eat foods that are high in fiber, such as beans, whole grains, and fresh fruits and vegetables. ?Limit foods that are high in fat and processed sugars, such as fried or sweet foods. General instructions Take gtat-sdi-kfyktzv and prescription medicines only as told by [...] the muscles that help control urination. Take azfe-mqj-gqwjqlz and prescription medicines only as told by your health care provider. Contact a health care provider if your symptoms do not improve or get worse. This information is not intended to replace advice given to you by your health care provider. Make sure you discuss any questions you have with your health care provider. Document Released: 07/17/2010 Document Revised: 03/30/2019 Document Reviewed: 03/30/2019 [employer] Patient Education 2020 [employer]. Follow Up Care 10/22/2022 11:17:07 With:JORDANA BALDERAS, Joshua Dempsey, URL Address: [address] [place], [place] [id number]- Business (1) When: Unknown [facility] [place] [id number] Hospital Discharge instructions Patient Education 08/24/2022 15:50:28 [...] Care 07/31/2022 12:32:41 With:Joshua SILVEIRA Address: [address] [facility] [employer] [address] [place] [address] [facility] (1) When:6 weeks Comments:Call for followup appointment. Monitor the urinary low after the dilation today. Have a great Thanksgiving. [facility]10-28-2022 Hospital Discharge instructions Patient Education 07/31/2022 12:11:34 [...] including vitamins, herbs, eye drops, creams, and ztso-usf-fuwkuhj medicines. ?Whether you are or may be [...] 07/17/2008 Document Revised: 01/09/2020 Document Reviewed: 07/25/2018 [employer] Patient Education 2020 [employer] Follow Up Care 07/24/2022 16:53:57 With:JORDANA BALDERAS, Joshua Dempsey, URL Address: [address] [place] [address] [address] [place] [id number]- When: Unknown Comments:Cysto/ Urodynamics [facility] [place] 05-19-2022 Evaluation note* Encounter Date [...] and GT bursa injection in the future. [employer] Other 04-27-2022 Evaluation note* Encounter Date Diagnosis [...] from her referring physician at [facility]. I also independently reviewed previous [...] Continue with medication management through [facility]. I will also refer her [...] negative findings were considered in medical decision-making. [employer] Other 04-13-2022 Evaluation note* Encounter Date Diagnosis Assessment Notes Treatment Notes Treatment Clinical Notes Jan, Neck pain (ICD-10 - M54.2) I really do not see any surgical intervention that would be warranted in either her cervical or lumbar spine. I think continue conservative therapy is warranted. Jan, Low back pain at multiple sites (ICD-10 - M54.50) Jan, Fibromyalgia (ICD-10 - M79.7) [employer] Other consult note Author Jasmin Velázquez [facility] May 27, 2022 11:47am Note Date/Time May 27, 2022 11 :30am [facility] [place] [address] Hem/Onc Consult Note - OP Signed Patient: Rachel Mcgarry MR#: [id number] : 1980 Acct:[id number] Age/Sex: 42 / F Type: REG RCR Copies to: [facility]~ HPI Date/Time of Service: Date of Service: 05/27/2022 Time of Service: 11:29 Referring Provider/PCP: Referring Provider: PCP: Services Family [facility] - History of Present Illness Reason for Consultation: Leukocytosis Chief Complaint: Patient is here for a referral from Ajit Pettit for leukocytosis. [facility] labs. Patient states that she has [...] the process of being referred to a dockmaster. Patient smokes averaging half pack to 1 [...] been very well within the normal range [facility] - Medical History Medical History: [...] cancer. Patient is being referred to a dockmaster. We instructed her to call back if there is any concern for further definitive guidance and recommendations - Time with Patient Coordination of Care & Counseling Time: Greater than 50% of time spent with patient was for coordination of care (as documented) and juzu-bg-jqzy counseling of patient and/or family. Dictated By: Jasmin Velázquez MD DD/ [id number] Signed By: <Electronically signed by Jasmin Velázquez MD> 05/27/22 1147 [facility] Work Phone: Evaluation + Plan note Future Appointments Appointment Date:08/18/2022 08:00:00 AM Scheduled Provider: Location:[facility] Appointment Type:Urology CALL PAT FT Appointment Date:08/24/2022 02:00:00 PM Scheduled Provider: Location:[facility] Appointment Type:Urology FT Appointment Date:08/24/2022 03:00:00 PM Scheduled Provider: Location:[facility] Appointment Type:Urology FT [facility] Evaluation + Plan note Future Appointments Appointment Date:09/29/2022 10:15:00 AM Scheduled Provider:Joshua SILVEIRA MD [facility] App[facility] Future Appointments Appointment Date:12/29/2022 10:45:00 AM Scheduled Provider:Joshua SILVEIRA MD Location:[facility] [place] Appointment Type:URO Office Visit [facility] [place] evaluation noteNo Assessments Information Available [facility] InformationNort [email or web address] Other evaluation note* Diagnosis Onset Date Resolution Status Iron deficiency acute Leucocytosis acute Right ovarian cyst acute [facility] Work Phone: evaluation noteNo assessment information available [facility] Work Phone: evaluation note* Diagnosis Onset Date Resolution Status Abdominal pain acute Enteritis acute History of depression acute History of leukocytosis acut e IBS (irritable bowel syndrome) acute Leucocytosis acute Metabolic acidosis acute S/P hysterectomy acute T2DM (type 2 diabetes mellitus) acute [facility] Work Phone: evaluation note* Diagnosis Onset Date Resolution Status Chronic pain acute Lumbosacral spondylosis acut e Sacroiliitis acute [facility] Work Phone: evaluhppcr note* Diagnosis Onset Date Resolution Status Chronic pain acute Lumbosacral spondylosis acut e Sacroiliitis acute Chronic pain acute Lumbar radiculopathy acute Lumbosacral spondylosis acut e Sacroiliitis acute [facility] Work Phone: evaluwlssa note* Diagnosis Onset Date Resolution Status Chronic pain acute Lumbosacral spondylosis acut e Sacroiliitis acute Chronic pain acute Lumbar radiculopathy acute Lumbosacral spondylosis acut e Sacroiliitis acute Chronic pain acute Lumbar radiculopathy acute Lumbosacral spondylosis acut e Sacroiliitis acute [facility] Work Phone: Evaluation note* Diagnosis Onset Date Resolution Status Chronic pain acute Lumbar radiculopathy acute Lumbosacral spondylosis acut e Sacroiliitis acute [facility] Work Phone: History and physical note Author Abi Sunshine [facility] March 16, 2024 8:19am Note Date/Time March 16, 2024 8:20 am [facility] [address] [place] [address] Gastroenterology H&P Signed Patient: Rachel Mcgarry MR#: [id number] : 1980 Acct:[id number] Age/Sex: 44 / F Adm Date: 4 Loc: Room: Type: [facility] Attending Dr: Abi Sunshine DO Copies to: Abi Sunshine, DO Ajit Pettit NP-Jorge~ Date of Service: 03/16/2024 HISTORY & PHYSICAL: [...] <Electronically signed by Abi Sunshine DO> 03/16/24818 [facility] Work Phone: Hisbrcq general Narrative - Reported* Type Description Date [...] infection, bowel i nfection and flu 2011 [employer] Other Hisxkjp general Narrative - Reported* Type Description Date [...] infection, bowel i nfection and flu 2011 [employer] Other Hospital course Narrative No data available for this section [facility] Discharge instructions No data available for this section [facility] Discharge instructions Additional Instructions DISCHARGE INSTRUCTIONS [...] in an emergency, call the office at [[phone]]. TODAY -Take it easy the rest of [...] FOLLOW UP -Please call the office at [phone] to arrange an appointment to see me in 2 weeks [ ][facility] Work Phone: Hospital Discharge instructions Additional Instructions Follow any previous post-op orders.[facility] Work Phone: Progress note No data available for this section [facility] Reason for visit NarrativeReferral Ajit Pettit NP Lumbar DiscNort [email or web address] Other Summary Purpose Family History No Family [...] R52 E78.00 sent by doc N60.01 R92.8 Chief Complaint Admit Date Unknown January 18, 2025 3:4 5pm Assessments No Assessments Information AvailableNo Assessments Information AvailableNo Assessments Information AvailableNo Assessments Information AvailableNo Assessments Information AvailableNo Assessments Information Available Additional Source Comments INFORMATION SOURCE (unrecogn ized section and content) DATE CREATED AUTHOR 07/25/2019 [facility] DATE CREATED AUTHOR AUTHOR'S ORGANIZ ATION 02/15/[address] [facility] DATE CREATED AUTHOR AUTHOR'S ORGANIZ ATION 10/21/2023 [facility] EPIC DATE CREATED AUTHOR AUTHOR'S ORGANIZ ATION 07/10/2024 [facility] DATE CREATED AUTHOR AUTHOR'S ORGANIZ ATION 01/21/2025 [facility] DATE CREATED AUTHOR AUTHOR'S ORGANIZ ATION 01/28/2025 [facility] [place] [facility] DATE CREATED AUTHOR AUTHOR'S ORGANIZ ATION 02/11/2025 [facility] REASON FOR VISIT (unrecogniz ed section and content) LEFT L3,4 TRANSFORAMINAL EPIDURAL STEROID INJ/ELREF BY [facility] FOR LUMBAR DISC HERNIATIONFOLLOW UP AFTER LEFT LTRBILATERAL SACROILIAC JOINT INJECTIONINCREASE BACK PAIN RADIATING LLELEFT L3 AND L4 TRANSFORAMINAL EPIDURAL STEROID INJECTIONF/U INCREASE IN LOW BACK PAIN AND LEFT LE WEAKNESS-LOST TO FOLLOW UP LAST TIMEL4- 5 EPIDURAL STEROID INJ/ELRIGHT SACROILIAC JOINT INJ/EL Care Teams (unrecognized sec tion and content) Team Status: Inactive Member Role Status [facility] Primary Care Provider Active Ajit Pettit NP-C Attending Provider Active Team Status: Active Member Role Status Lorie Velázquez MD Attending Provider Active Services [facility] Primary Care Provider Active Team Status: Inactive Member Role Status [facility] Primary Care Provider Ac raya Alvarado DO Emergency Provider Active Team Status: Inactive Member Role Status Dates [facility] Primary Care Provider Titus Pettit OPERATING SYSTEM DESIGNER-C Attending Provider Active Team Status: Inactive Member Role Status Dates [facility] Primary Care Provider Ac raya Bergeron APRN Emergency Provider Active Team Status: Active Member Role Status [facility] Primary Care Provider Titus dos santos Team Status: Inactive Member Role Status Lorie Pettit OPERATING SYSTEM DESIGNER-C Attending Provider Active Services [facility] Primary Care Provider Titus dos santos Team Status: Inactive Member Role Status Dates [facility] Primary Care Provider Ac raya Miramontes MD Attending Provider Active Team Status: Inactive Member Role Status Lorie Pettit NP-C Attending Provider Active Team Status: Active Member Role Status L[facility] Primary Care Provider Active Team Status: Inactive Member Role Status Lorie Miramontes MD Attending Provider Active . [facility] Primary Care Provider Active Team Status: Inactive Member Role Status Dates Ajit E Spasic , OPERATING SYSTEM DESIGNER-C Attending Provider Active NON STAFF Primary Care Provider Active Team Status: Active Member Role Status Dates Ajit E Spasic , OPERATING SYSTEM DESIGNER-C Primary Care Provider Active Team Status: Inactive Member Role Status Dates Ajit E Spasic , OPERATING SYSTEM DESIGNER-C Primary Care Provider, Attending Provider Active Team Status: Inactive Member Role Status Dates Kyler Miramontes MD Attending Provider Active Ajit E Spasic , OPERATING SYSTEM DESIGNER-C Primary Care Provider Active Team Status: Inactive Member Role Status Dates Ajit E Spasic , OPERATING SYSTEM DESIGNER-C Primary Care Provider Active Kyler Miramontes MD Attending Provider Active Team Status: Inactive Member Role Status Dates Ajit E Spasic , OPERATING SYSTEM DESIGNER-C Primary Care Provider Active Carri Manuel DO [...] JULIANA Other Provider Active Silvia Galeas , LINE BUILDER Other Provider Active Evan Jackson , DO Other Provider Active Familia Blair MD Other Provider Active Brandon Dowling , DO Other Provider Active Florin Cruz MD Other Provider Active Vivi Holloway MD Other Provider Active Ilene Lopez , LINE BUILDER Other Provider Active Lilly Alexandre MD Other Provider Active Rangel Tyler MD Other Provider Active Aidan Cardenas MD Other Provider Active Holden De La Cruz MD Other Provider Active Leodan Catalan , DO Other Provider Active Palma Bright MD Other Provider Active Gabriele Vasquez MD Other Provider Active Karina Colvin , OPERATING SYSTEM DESIGNER-C Other Provider Active Gaurav Peraza MD Other Provider Active Mike Guzman MD Other Provider Active Antonio Teague MD Other Provider Active Jorge Galdamez MD Other Provider Active Kourtney Longoria , DO Other Provider Active Bola Sullivan , DO Other Provider Active Lazaro Dunne , DO Other Provider Active Elvira Nava , LINE BUILDER Other Provider Active Salazar Cabrera , DO Attending Provider, Other Provider Active Naila Lema MD Other Provider Active Namrtaa Munoz , LINE BUILDER Other Provider Active Carole Lundy , LINE BUILDER Other Provider Active Rosanna Grullon MD Other Provider Active Girish Tolentino MD Other Provider Active Beryl Holguin , LINE BUILDER Other Provider Active Mabel Lackey , DO Other Provider Active Talita Noel RN Other Provider Active Teo Taylor MD Other Provider Active Ajit E Spasic , OPERATING SYSTEM DESIGNER-C Primary Care Provider Active Team Status: Inactive Member Role Status Dates Ajit E Spasic , OPERATING SYSTEM DESIGNER-C Primary Care Provider Active Diego Noble , DO Emergency Provider Active Team Status: Inactive Member Role Status Dates Ajit E Spasic , OPERATING SYSTEM DESIGNER-C Attending Provider Active Start: January 18, 2024 End: January 18, 2024 Team Status: Inactive Member Role Status Dates Ajit E Spasic , OPERATING SYSTEM DESIGNER-C Primary Care Provi tirso, Attending Provider Active Start: January 21, 2024 End: January 21, 2024 Team Status: Inactive Member Role Status Dates Ajit E Spasic , OPERATING SYSTEM DESIGNER-C Primary Care Provi tirso, Attending Provider Active Start: February 04, 2024 End: February 04, 2024 Team Status: Inactive Member Role Status Dates Ajit E Spasic , OPERATING SYSTEM DESIGNER-C Primary Care Provi tirso, Attending Provider Active Start: February 09, 2024 End: February 09, 2024 Team Status: Inactive Member Role Status Dates Ajit E Spasic , OPERATING SYSTEM DESIGNER-C Primary Care Provider Active Start: February 21, 2024 End: February 21, 2024 Kyler Miramontes MD Attending Provider Active Sta rt: February 21, 2024 End: February 21, 2024 Team Status: Inactive Member Role Status Dates Ajit E Spasic , OPERATING SYSTEM DESIGNER-C Primary Care Provider Active Start: March 01, 2024 End: March 01, 2024 Kyler Miramontes MD Attending Provider Active Sta rt: March 01, 2024 End: March 01, 2024 Team Status: Active Member Role Status Dates Ajit Cat Millanc , OPERATING SYSTEM DESIGNER-C Primary Care Provider Active Start: March 01, 2024 Kyler Miramontes MD Attending Provider, Other Provider Active Start: March 01, 2024 Team Status: Inactive Member Role Status Dates Ajit Pettit , OPERATING SYSTEM DESIGNER-C Primary Care Provider Active Start: March 02, 2024 End: March 02, 2024 Kyler Miramontes MD Attending Provider Active Sta rt: March 02, 2024 End: March 02, 2024 Team Status: Inactive Member Role Status Dates Ajit Pettit , OPERATING SYSTEM DESIGNER-C Primary Care Provider Active Start: March 08, 2024 End: March 08, 2024 Kyler Miramontes MD Attending Provider Active Sta rt: March 08, 2024 End: March 08, 2024 Team Status: Inactive Member Role Status Dates Ajit Pettit , OPERATING SYSTEM DESIGNER-C Primary Care Provider Active Start: March 16, 2024 End: March 16, 2024 Abi Sunshine DO Attending Provider Active St art: March 16, 2024 End: March 16, 2024 Team Status: Active Member Role Status Dates Ajit Pettit , OPERATING SYSTEM DESIGNER-C Primary Care Provider Active Start: March 16, 2024 Abi Sunshine DO Attending Provider, Other Provider Active Start: March 16, 2024 Team Status: Inactive Member Role Status Dates Ajit Pettit , OPERATING SYSTEM DESIGNER-C Primary Care Provider Active Start: April 11, 2024 End: April 11, 2024 Alicia Villalobos NP Attending Provider Active Start: April 11, 2024 End: April 11, 2024 Team Status: Inactive Member Role Status Dates Ajit Pettit , OPERATING SYSTEM DESIGNER-C Attending Provider Active Start: May 16, 2024 End: May 16, 2024 Team Status: Inactive Member Role Status Dates Ajit Pettit , OPERATING SYSTEM DESIGNER-C Primary Care Provi tirso, Attending Provider Active Start: June 08, 2024 End: June 08, 2024 Team Status: Inactive Member Role Status Dates Ajit Pettit , OPERATING SYSTEM DESIGNER-C Primary Care Provi tirso, Attending Provider Active Start: July 04, 2024 End: July 04, 2024 Team Status: Inactive Member Role Status Dates Ajit Pettit , OPERATING SYSTEM DESIGNER-C Primary Care Provider Active Start: July 06, 2024 End: July 06, 2024 Jono Ferrari PA-C Emergency Provider Active Start: July 06, 2024 End: July 06, 2024 Team Status: Inactive Member Role Status Dates Ajit E Spasic , OPERATING SYSTEM DESIGNER-C Primary Care Cesia chahal Attending Provider Active Start: July 24, 2024 End: July 24, 2024 Team Status: Inactive Member Role Status Dates Ajit OLEG Ryder Primary Care Provider Active Start: January 18, 2025 End: January 18, 2025 Praveen Rivero DO Attending Provider Active S tart: January 18, 2025 End: January 18, 2025 Goals (unrecognized section and content) Goals may [...] BE BASED ON THE PRIMARY CLINICAL RECORDS. [employer] provides no warranty or guarantee of the accuracy or completeness of information in this document.
--- NOTE | 2025-02-12 03:25 | PC.NURSE ---
rash on bilateral thighs started tonight, difficulty urinating, UTI last month treated with Keflex, then treated for yeast infection with Diflucan. Continued to have bladder pain and saw PCP. was put on Ditropan, but is still having pain and now states she cannot urinate more than twice per day and has to really try.
[2025-02-12] MEDS: DIPHENHYDRAMINE HCL 25 MG CAPSULE PO (03:34)
[2025-02-12 04:11] LABS: Bilirubin Urine NEGATIVE (NEGATIVE); Blood Urine NEGATIVE (NEGATIVE); Clarity Urine CLEAR (CLEAR); Color Urine YELLOW (YELLOW); Glucose Urine UA NEGATIVE (NEGATIVE); Ketones Urine NEGATIVE (NEGATIVE); Leukocyte Esterase Urine TRACE (NEGATIVE); Nitrite Urine NEGATIVE (NEGATIVE); Protein Urine NEGATIVE (NEG/TRACE); Specific Gravity Urine 1.015 (1.005-1.025); Urobilinogen Urine 0.2 EU/dL (0.2-1.0); pH Urine 6.5 (5.0-9.0)
[2025-02-12 04:18] LABS: Bacteria Urine SMALL #/HPF (NONE SEEN)
[2025-02-12 04:19] LABS: Cast Seen? NONE SEEN #/LPF (NONE SEEN); Crystals Seen? None Seen #/HPF (None Seen); Mucus Urine NONE SEEN (NONE SEEN); Squamous Epithelial Cell Urine MODERATE #/LPF (NONE/RARE); Transitional Epi Cells Urine FEW #/LPF (NONE SEEN); Urine Culture Indicated YES-FRMC
--- NOTE | 2025-02-12 04:32 | ED.FEMALEGU1 ---
HPI - Female Genitourinary General Chief complaint: Urogenital-Female Stated complaint: LOWER ABDOMINAL PAIN, RASH Time Seen by Provider: 02/12/25 02:35 Source: patient Mode of arrival: walk-in Limitations: no limitations History of Present Illness HPI Narrative: 45-year-old female who was recently placed on Ditropan due to dysuria and was treated for UTI with Keflex presents for evaluation of ongoing urinary pain. She states she is having trouble urinating despite drinking a lot of liquid. She states she feels like her bladder is full. A bladder scan revealed that her bladder had less than 100 cc. She denies any flank pain. She does have a urologist that she has seen in the past but has not recently followed up with him. She has no nausea or vomiting. She denies any fever. She also recently developed a pruritic skin rash on her inner thighs. She denies any change in her medications or detergents. She has not taken any medications for this. She denies any difficulty breathing or swallowing. The skin rash is limited to her medial thighs. Related Data Home Medications ?Medication ?Instructions ?Recorded ?Confirmed cariprazine 1.5 mg capsule 1.5 mg PO DAILY 04/20/23 11/18/24 (Vraylar) divalproex 250 mg tablet,delayed 250 mg PO DAILY 04/20/23 11/18/24 release divalproex 500 mg tablet,extended 500 mg PO DAILY 04/20/23 11/18/24 release 24 hr doxazosin 2 mg tablet 2 mg PO DAILY 04/20/23 11/18/24 ergocalciferol (vitamin D2) 1,250 1,250 mcg PO DAILY 04/20/23 11/18/24 mcg (50,000 unit) capsule ferrous sulfate 325 mg (65 mg 325 mg PO DAILY 04/20/23 11/18/24 iron) tablet (FeroSul) gabapentin 800 mg tablet 800 mg PO DAILY 04/20/23 07/15/24 metformin 500 mg tablet,extended 500 mg PO DAILY 04/20/23 04/03/24 release 24 hr dulaglutide 3 mg/0.5 mL 3 mg subcut .weekly 03/26/24 11/18/24 [facility] meloxicam 15 mg tablet 15 mg PO DAILY 03/26/24 11/18/24 multivitamin-ferrous 1 tab PO Q24H 03/26/24 11/18/24 fumarate-folic acid 18 mg-400 mcg tablet (Spectravite Women) sertraline 100 mg tablet 100 mg PO Q24H 03/26/24 11/18/24 simvastatin 20 mg tablet 20 mg PO DAILY 03/26/24 11/18/24 tizanidine 4 mg tablet 4 mg PO Q8H PRN muscle spasticity 03/26/24 11/18/24 diazepam 10 mg tablet 10 mg PO QPM 11/18/24 11/18/24 melatonin 10 mg capsule 10 mg PO QPM 11/18/24 11/18/24 promethazine 25 mg tablet 25 mg PO BID PRN nausea and 11/18/24 11/18/24 vomiting sertraline 50 mg tablet 50 mg PO DAILY 11/18/24 11/18/24 Previous Rx's ?Medication ?Instructions ?Recorded [id number]-unelkdbuqpbxiyl-AJ 10 ml PO Q6H PRN cold symptoms 11/18/24 2 mg-30 mg-10 mg/5 mL oral syrup #200 mL (Bromfed DM) ondansetron 4 mg disintegrating 4 mg PO Q6H PRN nausea and 11/18/24 tablet vomiting #12 tabs cephalexin 500 mg capsule 500 mg PO TID 7 days #21 caps 01/18/25 Allergies Allergy/AdvReac Type Severity Reaction Status Date / Time metoclopramide (From Reglan) Allergy Intermediate shaking Verified 02/12/25 02:46 amitriptyline Allergy dizzy Verified 02/12/25 02:46 latex Allergy hives Verified 02/12/25 02:46 sulfamethoxazole (From Allergy Hives Verified 02/12/25 02:46 Bactrim) tramadol (From Ultram) Allergy seizures Verified 02/12/25 02:46 trimethoprim (From Bactrim) Allergy Hives Verified 02/12/25 02:46 Review of Systems ROS Status of ROS 10 or more systems reviewed and unremarkable except as noted in history and below PFSH PFSH Social History Smoking status: Current every day smoker Little interest or pleasure in doing things: not at all Feeling down, depressed, or hopeless: not at all Exam Narrative Exam Narrative: Vital signs and Nursing Notes reviewed: Patient is afebrile with a normal pulse, normal blood pressure, she is not hypoxic with pulse ox of 97% on room air General: Awake, alert, oriented, no acute distress, lying comfortably on the stretcher HEENT: Normocephalic atraumatic, mucous membranes are moist and pink, eyes are clear, normal conjunctiva, vision is grossly intact, posterior pharynx is normal in appearance, patient is edentulous. There is no swelling of the tongue, uvula or pharyngeal soft tissues Neck: Supple, no meningeal signs, no anterior or posterior cervical lymphadenopathy Chest: Lungs are clear to auscultation with good air entry, there is no wheezing rhonchi or rales appreciated no accessory muscle use, patient is speaking in complete sentences-no chest wall tenderness to palpation CVS: Regular rate and rhythm S1-S2, no murmurs rubs or gallops, pulses are brisk and equal bilaterally ABD: Soft, nondistended, nontender, no rebound guarding or rigidity, bowel sounds are normal, no pulsatile masses appreciated, bladder scan performed by nursing staff revealed less than 100 cc in the bladder, no CVA tenderness Extremities: Moving all extremities, no lower extremity tenderness or swelling noted, negative Homans' sign, pulses are brisk and equal bilaterally Skin: Skin is normal in appearance with a mildly erythematous rash on the medial thighs bilaterally. There are no hives or skin breakdown, there is no sign of cellulitis or infection Neuro: No focal deficits Constitutional Vital Signs, click to edit/add: Last Vital Signs Temp 97.7 F 02/12/25 02:37 Pulse 79 02/12/25 02:37 Resp 16 02/12/25 02:37 BP 120/86 02/12/25 02:37 Pulse Ox 97 02/12/25 02:37 O2 Del Method Room Air 02/12/25 02:37 Course Vital Signs Vital signs: Vital Signs Temperature 97.7 F 02/12/25 02:37 Pulse Rate 79 02/12/25 02:37 Respiratory Rate 16 02/12/25 02:37 Blood Pressure 120/86 02/12/25 02:37 Pulse Oximetry 97 02/12/25 02:37 Oxygen Delivery Method Room Air 02/12/25 02:37 Temperature 97.7 F 02/12/25 02:37 Pulse Rate 79 02/12/25 02:37 Respiratory Rate 16 02/12/25 02:37 Blood Pressure 120/86 02/12/25 02:37 Pulse Oximetry 97 02/12/25 02:37 Oxygen Delivery Method Room Air 02/12/25 02:37 MDM - Female Genitourinary MDM Narrative Medical decision making narrative: This 45-year-old female was recently placed on Ditropan for urinary pain/bladder spasms presents for evaluation of ongoing urinary pain despite the Ditropan. She was also treated for a urinary tract infection with Keflex. She has developed a mild rash on her medial thighs. This appears to be a contact dermatitis. The patient's bladder was scanned and was holding less than 100 cc of urine. She drinks several glasses of water and was able to produce a urine for lab review. It shows trace leukocyte Estrace and very minimal red and white blood cells moderate squamous epithelial cells indicating likely contaminated. Culture is pending at this time. I do not feel that this is indicative of prescribing her antibiotics or related to her urinary symptoms. She is status post full hysterectomy in the past and denies any other GI symptoms. She was given a dose of Pyridium in the emergency department. I explained to her this is for bladder spasms and cannot be taken in a custodial basis. Prior to discharge she was given a dose of Toradol. She was encouraged drink plenty of fluids and follow-up with Dr. Parker from urology as needed. Lab Data Labs: Lab Results 02/12/25 Range/Units 04:07 Urine Color Yellow (YELLOW) Urine Clarity Clear (CLEAR) Urine pH 6.5 (5.0-9.0) Ur Specific [place] 1.015 (1.005-1.025) Urine Protein Negative (NEG/TRACE) mg/dL Urine Glucose (UA) Negative (NEGATIVE) mg/dL Urine Ketones Negative (NEGATIVE) mg/dL Urine Occult Blood Negative (NEGATIVE) Urine Nitrite Negative (NEGATIVE) Urine Bilirubin Negative (NEGATIVE) Urine Urobilinogen 0.2 (0.2-1.0) EU/dL Ur Leukocyte Esterase Trace A (NEGATIVE) Urine RBC 2-5 A (0-2) #/HPF Urine WBC 2-5 A (NONE SEEN) #/HPF Ur Squamous Epith Cells Moderate A (NONE/RARE) #/LPF Ur Transition Epith Cell Few A (NONE SEEN) #/LPF Urine Crystals None seen (None Seen) #/HPF Urine Bacteria Small A (NONE SEEN) #/HPF Urine Casts None seen (NONE SEEN) #/LPF Urine Mucus None seen (NONE SEEN) Ur Culture Indicated? [place] [place] Discharge Chief Complaint: Urogenital-Female Clinical Impression: Dysuria, Contact dermatitis Patient Disposition: Home, Self-Care Time of Disposition Decision: 04:30 Condition: Good Prescriptions / Home Meds: No Action Trulicity 3 mg/0.5 mL pen injector 3 mg SUBCUT .weekly meloxicam 15 mg tablet 15 mg PO DAILY Spectravite Women 18-400 mg-mcg tablet 1 tab PO Q24H sertraline 100 mg tablet 100 mg PO Q24H simvastatin 20 mg tablet 20 mg PO DAILY tizanidine 4 mg tablet 4 mg PO Q8H PRN (Reason: muscle spasticity) cephalexin 500 mg capsule 500 mg PO TID 7 Days Qty: 21 0RF Vraylar 1.5 mg capsule 1.5 mg PO DAILY divalproex 250 mg tablet,delayed release (DR/EC) 250 mg PO DAILY divalproex 500 mg tablet extended release 24 hr 500 mg PO DAILY doxazosin 2 mg tablet 2 mg PO DAILY ergocalciferol (vitamin D2) 1,250 mcg (50,000 unit) capsule 1,250 mcg PO DAILY ferrous sulfate [FeroSul] 325 mg (65 mg iron) tablet 325 mg PO DAILY gabapentin 800 mg tablet 800 mg PO DAILY metformin 500 mg tablet extended release 24 hr 500 mg PO DAILY diazepam 10 mg tablet 10 mg PO QPM melatonin 10 mg capsule 10 mg PO QPM promethazine 25 mg tablet 25 mg PO BID PRN (Reason: nausea and vomiting) sertraline 50 mg tablet 50 mg PO DAILY muprbujcehhnnji-qqyqpwlum-QE [Bromfed DM] 2-30-10 mg/5 mL syrup 10 ml PO Q6H PRN (Reason: cold symptoms) Qty: 200 0RF ondansetron 4 mg tablet,disintegrating 4 mg PO Q6H PRN (Reason: nausea and vomiting) Qty: 12 0RF Print Language: Wolof Instructions: Contact Dermatitis (ED), Dysuria (ED) Referrals: [facility] [Primary Care Provider] - 1 week
[2025-02-12] MEDS: KETOROLAC TROMETHAMINE 30 MG/ML VIAL IM (04:36)
[2025-02-12] MEDS: PHENAZOPYRIDINE 100 MG TABLET 200 MG PO (04:36)
== END 2025-02-12 04:48 | disposition home or self-care (01) ==
PROVIDERS: Emergency Provider Emergency Medicine
DX: R30.0 Dysuria (principal); L25.9 Unspecified contact dermatitis, unspecified cause; L29.9 Pruritus, unspecified
CPT/HCPCS: 81001; 87086; 96372; 99284; J1885

== ENCOUNTER 2025-02-16 12:34 | Emergency (ER) | payer OTHER, SELFPAY ==
[2025-02-16 12:50] VITALS: BP 117/82; PULSE 82; TEMP 36.7; O2SAT 100; BMI 24.6
[2025-02-16 13:19] LABS: Bilirubin Urine NEGATIVE (NEGATIVE); Blood Urine NEGATIVE (NEGATIVE); Clarity Urine CLEAR (CLEAR); Color Urine YELLOW (YELLOW); Glucose Urine UA NEGATIVE (NEGATIVE); Ketones Urine TRACE mg/dL (NEGATIVE); Leukocyte Esterase Urine NEGATIVE (NEGATIVE); Nitrite Urine NEGATIVE (NEGATIVE); Protein Urine NEGATIVE (NEG/TRACE); Urobilinogen Urine 0.2 EU/dL (0.2-1.0)
[2025-02-16 13:33] LABS: Bacteria Urine LARGE #/HPF (NONE SEEN); Cast Seen? NONE SEEN #/LPF (NONE SEEN); Crystals Seen? None Seen #/HPF (None Seen); Mucus Urine NONE SEEN (NONE SEEN); Squamous Epithelial Cell Urine MANY #/LPF (NONE/RARE); Urine Culture Indicated YES-FRMC
[2025-02-16 13:48] LABS: Alanine Aminotransferase 18 U/L (14-59); Albumin Globulin Ratio 0.9; Alkaline Phosphatase 56 U/L (46-116); Anion Gap 11.7; Aspartate Amino Transferase 10 U/L (15-37); BUN Creatinine Ratio 6.4; Bilirubin Total 0.2 mg/dL (0.2-1.0); Calcium 8.6 mg/dL (8.5-10.1); Carbon Dioxide 27.9 mmol/L (21.0-32.0); Chloride 103 mmol/L (98-107); Estimated GFR (African America >60 (>=60 mL/min/1.73m^2); Estimated GFR (Non-African Ame >60 (>=60 mL/min/1.73m^2); Globulin 3.2 g/dL; Glucose 132 mg/dL (74-106); Potassium 3.6 mmol/L (3.5-5.1); Sodium 139 mmol/L (136-145); Total Protein 6.2 g/dL (6.4-8.2)
--- NOTE | 2025-02-16 14:41 | ED.GENADUL1 ---
HPI HPI - General Adult General Chief complaint: Extremity Problem, Nontraumatic Stated complaint: LOWER EXTREMITY SWELLING Time Seen by Provider: 02/16/25 13:12 Source: patient Mode of arrival: walk-in Limitations: no limitations History of Present Illness HPI narrative: Patient is a 45-year-old female who is presenting to the ER with chief complaint of bilateral lower peripheral edema that started this morning. Patient says that she has not had this before. Patient also states she does have intermittent difficulty urinating, states that when she sits in the toilet, she feels that she has to push her bladder to pee like she is having a bowel movement. Patient had 3 vaginal deliveries, no complications with any of her deliveries. All systems are negative except as noted/marked. All systems reviewed and otherwise negative. Nurses note and vital signs reviewed and patient is not hypoxic. General: The patient appears well and in no apparent distress. Patient is resting comfortably on cart. Patient is not toxic, lethargic, or listless Skin: Warm, dry, no pallor noted. There is no rash noted. No petechiae, purpura. Head: Normocephalic, atraumatic Eye: Normal conjunctiva, no drainage, EOMI. PERRL Ears, Nose, Mouth, and Throat: oral mucosa is moist. Nares patent. Mouth without vesicles. Cardiovascular: Regular Rate and Rhythm, no murmur, gallop, rub Respiratory: Patient is in no distress, no accessory muscle use, lungs are clear to auscultation, no wheezing, rales or rhonchi Back: non-tender, no CVA tenderness bilaterally to percussion. No CT LS midline pain GI: No suprapubic tenderness to palpation, No tenderness to palpation, no masses appreciated. No rebound, guarding, or rigidity noted. No distention Musculoskeletal: Patient has full range of motion of all of the extremities, no motor, sensory, or focal neurological deficits. Patient has nonpitting edema to bilateral lower extremities. Patient does have mild tenderness to palpation to bilateral calfs. She has no unilateral swelling. She has no pain to palpation to the posterior aspect of bilateral thighs and popliteal fossa. No rash. No venous stasis. Neurological: A&O x4, normal speech Psychiatric: Cooperative Related Data Home Medications ?Medication ?Instructions ?Recorded ?Confirmed cariprazine 1.5 mg capsule 1.5 mg PO DAILY 04/20/23 11/18/24 (Vraylar) divalproex 250 mg tablet,delayed 250 mg PO DAILY 04/20/23 11/18/24 release divalproex 500 mg tablet,extended 500 mg PO DAILY 04/20/23 11/18/24 release 24 hr doxazosin 2 mg tablet 2 mg PO DAILY 04/20/23 11/18/24 ergocalciferol (vitamin D2) 1,250 1,250 mcg PO DAILY 04/20/23 11/18/24 mcg (50,000 unit) capsule ferrous sulfate 325 mg (65 mg 325 mg PO DAILY 04/20/23 11/18/24 iron) tablet (FeroSul) gabapentin 800 mg tablet 800 mg PO DAILY 04/20/23 07/15/24 metformin 500 mg tablet,extended 500 mg PO DAILY 04/20/23 04/03/24 release 24 hr dulaglutide 3 mg/0.5 mL 3 mg subcut .weekly 03/26/24 11/18/24 subcutaneous pen injector (Trulicity) meloxicam 15 mg tablet 15 mg PO DAILY 03/26/24 11/18/24 multivitamin-ferrous 1 tab PO Q24H 03/26/24 11/18/24 fumarate-folic acid 18 mg-400 mcg tablet (Spectravite Women) sertraline 100 mg tablet 100 mg PO Q24H 03/26/24 11/18/24 simvastatin 20 mg tablet 20 mg PO DAILY 03/26/24 11/18/24 tizanidine 4 mg tablet 4 mg PO Q8H PRN muscle spasticity 03/26/24 11/18/24 diazepam 10 mg tablet 10 mg PO QPM 11/18/24 11/18/24 melatonin 10 mg capsule 10 mg PO QPM 11/18/24 11/18/24 promethazine 25 mg tablet 25 mg PO BID PRN nausea and 11/18/24 11/18/24 vomiting sertraline 50 mg tablet 50 mg PO DAILY 11/18/24 11/18/24 Previous Rx's ?Medication ?Instructions ?Recorded [id number]-vpcaqpexluhgauo-XI 10 ml PO Q6H PRN cold symptoms 11/18/24 2 mg-30 mg-10 mg/5 mL oral syrup #200 mL (Bromfed DM) ondansetron 4 mg disintegrating 4 mg PO Q6H PRN nausea and 11/18/24 tablet vomiting #12 tabs cephalexin 500 mg capsule 500 mg PO TID 7 days #21 caps 01/18/25 hydrochlorothiazide 12.5 mg tablet 12.5 mg PO DAILY #3 tabs 02/16/25 Allergies Allergy/AdvReac Type Severity Reaction Status Date / Time metoclopramide (From Reglan) Allergy Intermediate shaking Verified 02/12/25 02:46 amitriptyline Allergy dizzy Verified 02/12/25 02:46 latex Allergy hives Verified 02/12/25 02:46 sulfamethoxazole (From Allergy Hives Verified 02/12/25 02:46 Bactrim) tramadol (From Ultram) Allergy seizures Verified 02/12/25 02:46 trimethoprim (From Bactrim) Allergy Hives Verified 02/12/25 02:46 Opioid HPI Opioid Management Most Recent Opioid Data: Last Pain Scale 0 Today, 14:35 PFSH PFSH Social History Smoking status: Current every day smoker Little interest or pleasure in doing things: not at all Feeling down, depressed, or hopeless: not at all Exam Constitutional Vital Signs, click to edit/add: Last Vital Signs Temp 98.0 F 02/16/25 12:50 Pulse 82 02/16/25 12:50 Resp 18 02/16/25 12:50 BP 117/82 02/16/25 12:50 Pulse Ox 100 02/16/25 12:50 O2 Del Method Room Air 02/16/25 12:50 Course Vital Signs Vital signs: Vital Signs Temperature 98.0 F 02/16/25 12:50 Pulse Rate 82 02/16/25 12:50 Respiratory Rate 18 02/16/25 12:50 Blood Pressure 117/82 02/16/25 12:50 Pulse Oximetry 100 02/16/25 12:50 Oxygen Delivery Method Room Air 02/16/25 12:50 Temperature 98.0 F 02/16/25 12:50 Pulse Rate 82 02/16/25 12:50 Respiratory Rate 18 02/16/25 12:50 Blood Pressure 117/82 02/16/25 12:50 Pulse Oximetry 100 02/16/25 12:50 Oxygen Delivery Method Room Air 02/16/25 12:50 Medical Decision Making MDM Narrative Medical decision making narrative: Patient did have lab work done. 10 minutes of education was done at bedside and elevating legs at nighttime, using compression stockings. Patient will be given a low-dose hydrochlorothiazide tablet to use to help with mild swelling. Patient feels like she cannot urinate. Patient will follow-up with PCP and have referral to urologist if needed. Patient did have a bladder scan that was done after she urinated, and only approximately 13 to 20 cc were seen in the bladder Lab Data Labs: Lab Results 02/16/25 02/16/25 Range/Units 13:00 13:27 Sodium 139 (136-145) mmol/L Potassium 3.6 (3.5-5.1) mmol/L Chloride 103 (98-107) mmol/L Carbon Dioxide 27.9 (21.0-32.0) mmol/L Anion Gap 11.7 BUN 6.0 L (7.0-18.0) mg/dL Creatinine 0.94 (0.55-1.02) mg/dL Est GFR ( Amer) >60 (>=60 mL/min/1.73m^2) Est GFR (Non-Af Amer) >60 (>=60 mL/min/1.73m^2) BUN/Creatinine Ratio 6.4 Glucose 132 H (74-106) mg/dL Calcium 8.6 (8.5-10.1) mg/dL Total Bilirubin 0.2 (0.2-1.0) mg/dL AST 10 L (15-37) U/L ALT 18 (14-59) U/L Alkaline Phosphatase 56 (46-116) U/L Total Protein 6.2 L (6.4-8.2) g/dL Albumin 3.0 L (3.4-5.0) g/dL Globulin 3.2 g/dL Albumin/Globulin Ratio 0.9 Urine Color Yellow (YELLOW) Urine Clarity Clear (CLEAR) Urine pH 6.0 (5.0-9.0) Ur Specific [place] 1.020 (1.005-1.025) Urine Protein Negative (NEG/TRACE) mg/dL Urine Glucose (UA) Negative (NEGATIVE) mg/dL Urine Ketones Trace A (NEGATIVE) mg/dL Urine Occult Blood Negative (NEGATIVE) Urine Nitrite Negative (NEGATIVE) Urine Bilirubin Negative (NEGATIVE) Urine Urobilinogen 0.2 (0.2-1.0) EU/dL Ur Leukocyte Esterase Negative (NEGATIVE) Urine RBC 2-5 A (0-2) #/HPF Urine WBC 2-5 A (NONE SEEN) #/HPF Ur Squamous Epith Cells Many A (NONE/RARE) #/LPF Urine Crystals None seen (None Seen) #/HPF Urine Bacteria Large A (NONE SEEN) #/HPF Urine Casts None seen (NONE SEEN) #/LPF Urine Mucus None seen (NONE SEEN) Ur Culture Indicated? Yes-[facility] [place] Discharge Plan Discharge Chief Complaint: Extremity Problem, Nontraumatic Clinical Impression: Edema, peripheral Patient Disposition: Home, Self-Care Time of Disposition Decision: 14:36 Condition: Fair Prescriptions / Home Meds: New hydrochlorothiazide 12.5 mg tablet 12.5 mg PO DAILY Qty: 3 0RF No Action Trulicity 3 mg/0.5 mL pen injector 3 mg SUBCUT .weekly meloxicam 15 mg tablet 15 mg PO DAILY Spectravite Women 18-400 mg-mcg tablet 1 tab PO Q24H sertraline 100 mg tablet 100 mg PO Q24H simvastatin 20 mg tablet 20 mg PO DAILY tizanidine 4 mg tablet 4 mg PO Q8H PRN (Reason: muscle spasticity) cephalexin 500 mg capsule 500 mg PO TID 7 Days Qty: 21 0RF Vraylar 1.5 mg capsule 1.5 mg PO DAILY divalproex 250 mg tablet,delayed release (DR/EC) 250 mg PO DAILY divalproex 500 mg tablet extended release 24 hr 500 mg PO DAILY doxazosin 2 mg tablet 2 mg PO DAILY ergocalciferol (vitamin D2) 1,250 mcg (50,000 unit) capsule 1,250 mcg PO DAILY ferrous sulfate [FeroSul] 325 mg (65 mg iron) tablet 325 mg PO DAILY gabapentin 800 mg tablet 800 mg PO DAILY metformin 500 mg tablet extended release 24 hr 500 mg PO DAILY diazepam 10 mg tablet 10 mg PO QPM melatonin 10 mg capsule 10 mg PO QPM promethazine 25 mg tablet 25 mg PO BID PRN (Reason: nausea and vomiting) sertraline 50 mg tablet 50 mg PO DAILY [id number]-mzxxjdcji-AT [Bromfed DM] 2-30-10 mg/5 mL syrup 10 ml PO Q6H PRN (Reason: cold symptoms) Qty: 200 0RF ondansetron 4 mg tablet,disintegrating 4 mg PO Q6H PRN (Reason: nausea and vomiting) Qty: 12 0RF Print Language: Estonian Instructions: Leg Edema (ED) Additional Instructions: See your doctor on Wednesday for follow-up for intermittent difficulty urinating and lower extremity swelling. When we did a bladder scan after you tried to urinate, you only have less than 20 cc of urine. Your bladder is able to hold up to 1300 to 1500 cc of urine before you started having significant pain Elevate your legs at nighttime as discussed, picking up the foot your bed 1 to 2 feet to help with swelling. Use pydg-tet-srpalyo compression stockings if needed. Take your hydrochlorothiazide tablet for the next 3 days to see if it helps with your swelling. Follow-up with PCP on Wednesday for further recommendations Referrals: [facility] [Primary Care Provider] - 1 week Discharge Date/Time: 02/16/25 15:01
== END 2025-02-16 15:01 | disposition home or self-care (01) ==
PROVIDERS: Emergency Provider Emergency Medicine
DX: R60.0 Localized edema (principal); R39.198 Other difficulties with micturition; F17.200 Nicotine dependence, unspecified, uncomplicated
CPT/HCPCS: 36415; 80053; 81001; 87086; 99283

== ENCOUNTER 2025-02-26 06:25 | Emergency (ER) | payer OTHER, SELFPAY ==
--- OUTSIDE RECORDS SUMMARY | 2019-05-26 07:00 | XMS_ITS | Continuity of Care Document ---
Author Organization [facility] Address [address] [place] [address] Phone Care Team Providers Care Pad Extractor Tender Name Role Phone yovany MORA Rohanannieluis e [...] Procedure Date Nutrit Couns For Control Of [place] Dis May Tobacco Counseling Oral Hygiene Instruction Resin Three Surfaces Anterior 9 Comp Oral Eval New/estab Patient 2018 Oral Hygiene Instruction Extract; Erupted Th/exposted Rt 019 Panoramic Film [id number] Additional Oct Limited Oral Eval Oral Hygiene [...] Diagnoses Date Provider Providers Copied on Encounter [facility], [address] [place] [address], [id number], [place] tel:[phone] Dental Clinic filling (chief complaint) Encounter for screening for dental disorders 9 Jeremie Presley. [address] [place] [address], [id number], [place]. tel:[phone] [address] [place] [address], [address] [place] [address], [id number], [place] tel:[phone] Dental Clinic Encounter for screening for dental disorders 9 Ac Hernandez. [address] [place], [place], [id number], [place]. tel:[phone] [address] [place] [address], [address] [place] [address], [id number], [place] tel:[phone] Dental Clinic extraction (chief complaint) Encounter for screening for dental disorders 9 Neela Haile. [address] [place] [address], [id number], [place]. tel:[phone] [address] [place] [address], [address] [place] [address], [id number], [place] tel:[phone] Dental Clinic Encounter for screening for dental disorders 9 yovany NGUYENCarlos Presley. [address] [place], [place], [id number], [place]. tel:[phone] 23 [facility], [address] [place] [address], [id number], tel:[phone] Dental Clinic dental limited (chief complaint) Encounter for screening for dental disorder 8 Vineeteri PRIETO Richard. [address] [place], [address], [place]. tel:[phone] OFFICE/OUTPAT IENT VISIT, EST [facility], [address] [place] [address], [id number], [place] tel:[phone] [facility] No Information Sep-2 200 8 No Information PREV VISIT, EST, AGE 18-39 [facility], [address] [place] [address], [id number], [place] tel:[phone] [facility] No Information Jun- 8 No Information Family History Family Member Type Diagnosis Age At Onset Mother Problem (finding) Spine problems Mother Problem (finding) Alive and well Mother Problem (finding) Fibromyalgia Payers Payer name Insurance type Covered libertarian ID Sindy fofana(s) D Medicaid [employer] [id number] Social History Type Description Quantity Date Captured Comments Alcohol Use Details Unknown Caffeine Use Details Unknown Tobacco Use Status Moderate cigarette smoker (10-19 cigs/day) Smoking Status Heavy tobacco smoker Smoking Tobacco Use Details Cigarette: Age Started: 8 Cigarette: 10 Cigarettes per day Sex Female Sexual Orientation Straight or heterosexual Gender Identity Female Vital Signs Date / Time: Height Weight [...]
--- OUTSIDE RECORDS SUMMARY | 2025-02-21 06:54 | XMS_ITS ---
Author Organization [facility] es Address [address] [place] [address] Care Team Providers Care Squeegeer And Former Name Role Phone Krupa Niki Primary Care Provider [phone] Yokasta Perera [phone] REASON FOR VISIT new rx Medications Medication SIG (Take, Route, Fr equency, Duration) Notes Start Date End Date Status Furosemide 20 MG 1 tablet Orally Once a day for 30 day(s) 02/21/2025 03/23/2025 Active Social History Sex Assigned At : Social History Observation Description Sex Assigned At Female Encounters Encounter Location Date Provider Diagnosis [facility] [address] [place] [address] 02/21/2025 Niki Gentile Lower extremity edema R60.0 Assessments Encounter Date Diagnosis (ICD Code) Assessment Notes Treatment Notes Treatment Clinical Notes Section Notes 02/21/2025 Lower extremity edema (ICD-10 - R60.0) Plan Of Treatment Medication Medication Name Sig Start Date Stop Date Notes Furosemide 20 MG 1 tablet Orally Once a day for 30 day(s) 02/21/2025 03/23/2025 Next Appt Details Provider Name:Niki Gentile, 03/06/2025 09:45:00 AM, [address] [facility], [place], [address], Provider Name:Yokasta Perera, 03/13/2025 08:00:00 AM, [address] [place], [address], Provider Name:Niki Gentile, 03/22/2025 08:15:00 AM, [address] [facility], [address] [place], [address], Provider Name:Yokasta Perera, 04/30/2025 08:00:00 AM, [address], [place], [address], Progress Notes * RACHEL MCGARRY LDOB:1980 (45 yo F)Acc No.[id number]:02/21/2025 Patient: RACHEL HIGGINBOTHAM Account Number:[id number] :1980 A ge:45 Y S ex:Female Address:[address] [place] [id number] * Refills Start Furosemide Tablet, 20 MG, Orally, 30, 1 tablet, Once a day, 30 day(s) Subjective: * Chief Complaints: * N ew rx * Medical History: * Surgical History: * Hospitalization/Major Diagno stic Procedure: * Medications: Objective: * Vitals: * Physical Examination: Assessment: * Assessment: 1. L ower extremity edema - R60.0 (Primary) Plan: * Treatment: * Procedure Codes: * true * Date: Generated for Romi hawkins/Kate/Vanesa on: 0 02/26/2025 06:37 AM EDT
--- OUTSIDE RECORDS SUMMARY | 2025-02-21 14:11 | XMS_ITS ---
Author Name Auto Generated Organization OHIP Support Name Relationship Address Phone [place] [address] + [place] [address] + [place] [address] + Alex [place] [address] + [place] [address] + [place] [address] + [place] [address] + [place] [address] + Tutu, [place] [address] +[phone] [place] [address] + Cam, [place] [address] +[phone] [place] [address] + Cam, [place] [address] +[phone] [place] [address] + Cam, [place] [address] +[phone] [place] [address] + Cam, [place] [address] +[phone] Anton[place] [address] + [place] [address] +[phone] [place] [address] + [place] [address] +[phone] [place] [address] + Care Team Providers Care Media Marketing Specialist Name Role Phone Spasic, Ajit E Admitting Unavailable Spasic, Ajit E Attending Unavailable Spasic, Ajit E Admitting Unavailable Spasic, Ajit E Primary Care Unavailable Spasic, Ajit E Attending Unavailable Spasic, Ajit E Admitting Unavailable Spasic, Ajit E Primary Care Unavailable Spasic, Ajit E Attending Unavailable Fe, Kyler S Attending Unavailable Spasic, Ajit E Primary Care Unavailable Fe, Kyler S Admitting Unavailable Fe, Kyler S Admitting Unavailable Fe, Kyler S Attending Unavailable Spasic, Ajit E Primary Care Unavailable Ly, Abi Ackerman Admitting Unavailable Ly, Abi Ackerman Attending Unavailable Spasic, Ajit E Primary Care Unavailable Spasic, Ajit E Primary Care Unavailable Ly, Abi L Attending Unavailable Ly, Abi L Admitting Unavailable Spasic, Ajit E Primary Care Unavailable Jono Ferrari Attending Unavailable Jono Ferrari Admitting Unavailable Spasic, Ajit Shelton Primary Care Unavailable Praveen Rivero Attending Unavailable Praveen Rivero Admitting Unavailable Spasic, Ajit E Primary Care Unavailable Marker, Anisa Abdi Attending Unavailable Marker, Anisa Abdi Admitting Unavailable PayPraveen Attending Unavailable PayPraveen Admitting Unavailable Spasic, Ajit Shelton Admitting Unavailable Spasic, Ajit E Attending Unavailable Spasic, Ajit E Admitting Unavailable Spasic, Ajit E Primary Care Unavailable Spasic, Ajit E Attending Unavailable Spasic, Ajit E Admitting Unavailable Spasic, Ajit E Primary Care Unavailable Spasic, Ajit E Attending Unavailable Spasic, Ajit E Primary Care Unavailable Spasic, Ajit E Attending Unavailable Spasic, Ajit E Admitting Unavailable Ambrose Cedeño Attending Unavailable Laura Marte Attending Unavailable Ambrose Cedeño Attending Unavailable Laura Marte Attending Unavailable Ambrose Cedeño Attending Unavailable PROBLEMS DATE TYPE CONDITION / CODE ATTENDING STATUS [facility] 02/20/2025 Unknown Vitamin D defici ency, unspecified / E55.9(ICD-10) [facility] 02/20/2025 Unknown Type 2 diabetes mellitus without complications / E11.9(ICD-10) [facility] Ajit [facility] 02/20/2025 Unknown Pure hypercholesterolemia, unspecified / E78.00(ICD-10) [facility] Ajit [facility] 02/20/2025 Unknown Retention of uri ne, unspecified / R33.9(ICD-10) [facility] 02/15/2025 Unknown Encounter for ny reening mammogram for malignant neoplasm of breast / Z12.31(ICD-10) Krupa Ajit E [facility] 09/06/2024 Unknown Mastodynia / N64.4(ICD-10) [facility] 09/05/2024 Unknown Encounter for sc reening for malignant neoplasm of colon / Z12.11(ICD-10) Abi Sunshine [facility] 07/24/2024 Unknown Solitary cyst of right breast / N60.01(ICD-10) Krupa Ajit E [facility] 07/24/2024 Unknown Other abnormal a nd inconclusive findings on diagnostic imaging of breast / R92.8(ICD-10) Krupa Ajit E [facility] 07/06/2024 Unknown Elevated white b lood cell count, unspecified / D72.829(ICD-10) Jono Ferrari [facility] 07/04/2024 Unknown Pain, unspecifie d / R52(ICD-10) Krupa Ajit E [facility] 06/08/2024 Unknown Scoliosis, unspe cified / M41.9(ICD-10) Ajit Pettit [facility] 06/08/2024 Unknown Intervertebral d isc disorders with myelopathy, lumbar region / M51.06(ICD-10) Ajit Pettit [facility] 06/08/2024 Unknown Radiculopathy, l umbar region / M54.16(ICD-10) Ajit Pettit [facility] 03/16/2024 Unknown Diarrhea, unspec ified / R19.7(ICD-10) Abi Sunshine [facility] 03/02/2024 Unknown Other chronic pa in / G89.29(ICD-10) Fe, Kyler [facility] 03/02/2024 Unknown Sacroiliitis, no t elsewhere classified / M46.1(ICD-10) Fe, [facility] 03/02/2024 Unknown Spondylosis with out myelopathy or radiculopathy, lumbosacral region / M47.817(ICD-10) [facility] PROCEDURES No Procedure Records Found RESULTS URINE CULTURE Observed: 02/20/2025 11:33 AM Status: F Source: [facility] Reason for Exam Urinary rete ntion Urine 40,000 colonies/ml mixed bacterial skin contaminants 2 Days PERFORMED BY: [place] [address] PATHOLOGIST CORRECTION OFFICER MAURO ELLSWORTH M.D. Performed By: #### [id number], CUU, LIPID, CBC, CMP, A[facility]C [facility] #### [facility] [address] [place] [address] COMPLETE BLOOD COUNT AUTO DIFF Collected: 02/20/2025 11:09 AM Status: F Source: [facility] Order Comment: Reason for Ex am Type 2 diabetes mellitus without complication, without long- TYPE CODE TESTS RESULT OUT OF RANGE REFERENCE UNITS LAB WBC White Blood Count 18.1 High 3.8-11.6 10*3/uL LAB UNWBC Uncorrected WBC 18.1 High 3.8-11.6 10*3/uL LAB RBC Red Blood Count 4.62 Normal 3.60-5.00 10*6/u L LAB HGB Hemoglobin 13.9 Normal 11.8-15.4 g/dL LAB HCT Hematocrit 40.7 Normal 34.0-46.4 % LAB MCV Mean Corpuscular Volume 88.1 Normal 80-100 fL LAB MCH Mean Corpuscular Hemoglobin 30.0 Normal 24.7-34.3 pg LAB MCHC Mean Corpuscular HGB Conc 34.1 Normal 32.0-35.0 g/dL LAB RDW Red Cell Distribution Width 13.0 Normal 11.9-15.3 % LAB PLT Platelet Count 315 Normal 150-450 10*3/uL LAB MPV Mean Platelet Volume 8.2 Normal 6.3-10.7 fL LAB NE% Neutrophils % (Auto) 63.0 . % LAB LY% Lymphocytes % (Auto) 30.9 . % LAB MO% Monocytes % (Auto) 5.0 . % LAB EO% Eosinophils % (Auto) 0.3 . % LAB BA% Basophils % (Auto) 0.8 . % LAB NRBC% NRBC% 0.0 Normal 0-0.5 /100{WBC} LAB NE# Neutrophils # (Auto) 11.4 High 1.8-7.7 10*3/uL LAB LY# Lymphocytes # (Auto) 5.6 High 1.00-4.8 10*3/uL LAB MO# Monocytes # (Auto) 0.9 High 0.0-0.8 10*3/uL LAB EO# Eosinophils # (Auto) 0.1 Normal 0.0-0.45 10*3/uL LAB BA# Basophils # (Auto) 0.1 Normal 0.0-0.2 10*3/uL Result Comment: PERFORMED BY : [facility] [address] [place] [address] PATHOLOGIST CORRECTION OFFICER MAURO ELLSWORTH M.D. Performed By: #### [id number], CUU, LIPID, CBC, CMP, A1C [facility] #### [facility] [address] COMPREHENSIVE METABOLIC PANEL Collected: 02/20/2025 1 1:09 AM Status: F Source: [facility] Order Comment: Reason for Ex am Type 2 diabetes mellitus without complication, without long- Reason for Exam Hypercholesterolemia Reason for Exam Vitamin D deficiency TYPE CODE TESTS RESULT OUT OF RANGE REFERENCE UNITS LAB GLU Glucose 79 Normal 70-100 mg/dL Result Comment: Random Gluco se Reference Range is dependent on time and content of last meal. Glucose of more than 200 mg/dL in a nonstressed, ambulatory subject supports the diagnosis of Diabetes Mellitus. ADA recommended reference range LAB BUN Blood Urea Nitrogen 8 Normal 7-25 mg/dL LAB CREATT Creatinine 0.74 Normal 0.60-1.20 mg/dL LAB GFReNR Estimated GFR >60.0 mL/Min LAB NA Sodium 135 Low 136-145 mmol/L LAB K Potassium 3.9 Normal 3.5-5.1 mmol/L LAB CL Chloride 96 Low 98-107 mmol/L LAB CO2 Carbon Dioxide 27.8 Normal 21.0-31.0 mmol/L LAB GAP Anion Gap 15.1 High 6.0-15.0 meq/L LAB CA Calcium 9.7 Normal 8.6-10.3 mg/dL LAB TP Total Protein 7.3 Normal 6.4-8.9 g/dL LAB ALB Albumin Level 4.6 Normal 3.5-5.7 g/dL LAB GLOB Globulin 2.7 g/dL LAB AGRATIO Albumin/Globulin Ratio 1.7 LAB BILIT Bilirubin,Total 0.4 Normal 0.3-1.0 mg/dL LAB AST Aspartate Amino Transferase 14 Normal 13-39 U/L LAB ALT Alanine Aminotransferase 11 Normal 7-52 U/L LAB ALP Alkaline Phosphatase 55 Normal 34-104 U/L Performed By: #### [id number], CUU, LIPID, CBC, CMP, [facility]C [facility] #### [facility] [address] LIPID PANEL Collected: 5 11:09 AM Status: F Source: [facility] Order Comment: Reason for Ex am Type 2 diabetes mellitus without complication, without long- Reason for Exam Hypercholesterolemia Reason for Exam Vitamin D deficiency TYPE CODE TESTS RESULT OUT OF RANGE REFERENCE UNITS LAB CHOL Cholesterol 212 High 140-200 mg/dL Result Comment: Chol less th an 200 mg/dl low risk Chol 201-239 mg/dl borderline risk Chol 240 mg/dl and greater high risk LAB HDL HDL Cholesterol 47 Normal 23-92 mg/dL Result Comment: HDL CHOL ATP -III CLASSIFICATION Cardiovascular Risk HDL > or equal to 60 mg/dL LOW HDL < 40 mg/dL HIGH LAB TRIG W REF Triglyceride w/Reflex 313 High 0-149 mg/dL Result Comment: TRIG ATP III CLASSIFICATION TRIG less than 150 mg/dL Normal TRIG 150-199 mg/dL Borderline high TRIG 200-500 mg/dL High TRIG greater than 500 mg/dL Very high Standard traceable to the Center for Disease Conrtrol and Prevention (CDC) test method. LAB LDLC LDL Cholesterol,Ca lculated 102 High 0-100 mg/dL Result Comment: LDL ATP III CLASSIFICATION LDL less than 100 mg/dL Optimal LDL 100-129 mg/dL Near or above optimal LDL 130-159 mg/dL Borderline high LDL 160-189 mg/dL High LDL greater than 189 mg/dL Very high LAB VLDL VLDL CHOLESTEROL 62 mg/dL LAB CHLHDL Chol/HDL Ratio 4.5 <5.0 Performed By: #### [id number], CUU, LIPID, CBC, CMP, A1C WT eA #### [facility] [address] [place] [address] [facility] VITAMIN D 25 HYDROXY TOTAL Collected: 0 02/20/2025 11:09 AM Status: F Source: [facility] Order Comment: Reason for Ex am Type 2 diabetes mellitus without complication, without long- Reason for Exam Hypercholesterolemia Reason for Exam Vitamin D deficiency TYPE CODE TESTS RESULT OUT OF RANGE REFERENCE UNITS LAB [id number] Vitamin D 25 Hydroxy Total 76.2 Normal 30-100 ng/mL Result Comment: VITAMIN D ST ATUS 25(OH)VITAMIN D RANGE (ng/mL) Deficient <20 Insufficient 20 to <30 Sufficient 30 to 100 Reference: Jovanni MF,Dominique NC, Gillian NINA, et al. Evaluation,treatment, and prevention of vitamin D deficiency; an Endocrine Society clinical practice guideline. JCEM. 2010; 96(7):1911-30. PERFORMED BY: [facility] [address] [place] [address] PATHOLOGIST CORRECTION OFFICER MAURO ELLSWORTH M.D. Performed By: #### [id number], CUU, LIPID, CBC, CMP, A1C WT eA #### [facility] [address] [place] [address] [facility] A1C WITH ESTIMATED AVERAGE GLU Collected: 02/20/2025 11:09 AM Status: F Source: [facility] Order Comment: Reason for Ex am Type 2 diabetes mellitus without complication, without long- TYPE CODE TESTS RESULT OUT OF RANGE REFERENCE UNITS LAB .A1C Hemoglobin A1C 6.4 High 4.3-5.6 % Result Comment: Increased ri sk for diabetes: 5.7 - 6.4 diabetes: >6.4 glycemic control for adults with diabetes: <7.0 LAB eAG Estimated Average Glucose 137 mg/dL Result Comment: PERFORMED BY : [place] [address] PATHOLOGIST CORRECTION OFFICER MAURO ELLSWORTH M.D. Performed By: #### [id number], CUU, LIPID, CBC, CMP, A1C WTH eA #### [facility] [address] [place] [address] URINE CULTURE Observed: 02/16/2025 1:00 PM Status: F Source: [facility] 50,000 colonies/ml mixed bacterial skin contaminants 2 Days PERFORMED BY: [place] [address] PATHOLOGIST CORRECTION OFFICER MAURO ELLSWORTH M.D. Performed By: #### CUU #### [place] [id number] [facility] MM SCREENING MAMMO BI W/CAD Observed: 02/15/2025 10:27 AM Status: COMPLETED Source: [facility] [address] [place] [address] [address] [place] [address] Mammography Report Signed Patient: Rachel Zuñiga MR#: [id number] 1 : 1980 Acct:[id number] Age/Sex: 45 / F Adm Date: 02/15/25 Loc: [place] Room: Type: [facility] Attending Dr: Ajit DEJESUS Ordering Provider: OLEG Sharp Date of Service: 02/15/25 Procedure(s): MM screening mammo BI w/CAD Accession Number(s): ([id number]) MM/MM screening mammo BI w/CAD: Screening mammogram for breast cancer Copies to: OLEG Sharp BILATERAL Screening Full Field digital mammogram with 3-D imaging. Full field digital CC and MLO imaging performed. CAD utilized. COMPARISON: 09/06/2024, 02/04/2024 HISTORY: Annual screening BREAST COMPOSITION: Scattered fibroglandular densities of the breast parenchyma identified BREAST CALCIFICATIONS: Benign calcifications present. VASCULAR CALCIFICATIONS: None ARCHITECTURAL DISTORTION: None BREAST NODULE: None AXILLARY LYMPH NODES: Normal POSTSURGICAL CHANGES: None MM/MM screening mammo BI w/CAD IMPRESSION: No mammographic evidence of malignancy. Routine follow-up recommended in one year. RESULT CODE: 2 Benign Findings(s) DENSITY CODE: 2 (approximately 25-50% glandular) There are scattered areas of fibroglandular density. FOLLOW UP: 1YR THE FALSE-NEGATIVE RATE OF MAMMOGRAPHY IS APPROXIMATELY 10%. IMAGING OF A PALPABLE ABNORMALITY MUST BE BASED ON CLINICAL GROUNDS. PATIENT WAS ENTERED INTO A REMINDER SYSTEM WITH A TARGET DUE DATE FOR THE NEXT MAMMOGRAM. Impression dictated by: Praveen Welch M.D. 02/15/2025 10:28 AM Dictation Location: [facility] Dictated By: Praveen Welch DO 02/15/25 1027 Signed By: <Electronically signed by Praveen Welch DO in OV> 02/15/25 1028 URINE CULTURE Observed: 02/12/2025 4:07 AM Status: F Source: [facility] 20,000 colonies/ml mixed bacterial skin contaminants 2 Days PERFORMED BY: [place] [address] PATHOLOGIST CORRECTION OFFICER MAURO ELLSWORTH M.D. Performed By: #### CUU #### [address] ED PATIENT EDUCATION NOTE Observed: 01/03 12:25 PM Status: F Source: [facility] ED Patient Education Note Obstetrics and Gynecology Urinary Tract Infection, Adult A urinary tract infection (UTI) is an infection of any part of the urinary tract. The urinary tract includes: ??? The kidneys. ??? The ureters. ??? [...] these instructions at home: Medicines ??? Take umit-vaw-yrseweh and prescription medicines only as told by [...] provider. Document Revised: 04/27/2021 Document Reviewed: 05/02/2021 [employer] (formerly [employer]) Patient Education ? 2023 [employer]. ED PATIENT SUMMARY Observed: 01/24/2025 12:25 PM Status: F Source: [facility] ED Patient Summary [address] [address] Patient Discharge Instructions Person Information Name: RACHEL ZUÑIGA Age: 45 Years Arrival Date: 01/24/2025 11:30:26 Discharge Diagnosis: UTI symptoms Primary Care Physician: AJIT PETTIT CNP Provider Information Primary Provider: Laura Marte M.D. Advanced Sales And Merchandising Associate:Hussein Ramey PA-C The exam and treatment you received in the Emergency Department were for an urgent problem and are not intended as complete care. It is important that you follow up with a doctor, nurse practitioner, or physician???s office services assistant for ongoing care. If your symptoms become worse or you do not improve as expected and you are unable to reach your usual health care provider, you should return to the Emergency Department. We are available 24 hours a day. RACHEL ZUÑIGA has been given the following list of patient education materials, prescriptions and follow-up instructions: Follow-up Instructions: With: Address: When: AJIT PETTIT [address] [place] [address] [facility] (1) In 3 days 01/27/2025 Comments: Call Dr for diagnosis based follow up In the event that this physician does not participate in your insurance network, please consult with your insurance company to find a nearby participating provider. Patient Education Materials: Urinary Tract Infection, Adult, Ylch-hi-Nulv A MESSAGE TO ALL PATIENTS REGARDING OPIOIDS PRESCRIPTION OPIOIDS: WHAT YOU NEED TO KNOW Prescription opioids can be used to help relieve rylrrrgt-hr-gpdasj pain and are often prescribed following a [...] guidance from the Food and Drug Administration (www.fda.gov/Drugs/ResourcesForYou). ??? Visit www.cdc.gov/drugoverdose to learn about the risks of opioids abuse and overdose. ??? If you believe you may be struggling with addiction, tell your health health care specialist and ask for guidance or call [facility]???S National Helpline at 7-124-949-SHOA. v Source: US Department of Health and Human Services/Center for Disease Control & Prevention [facility] Medications Given: Medication Dose Route ondansetron 4.00 mg Oral phenazopyridine 100.00 mg Oral fluconazole 300.00 mg Oral Medication Information: New Medications [facility]acy #[id number], [address] [place], [place] [id number], [phone] ciprofloxacin (Cipro 500 mg Tab) 1 Tablets [...] mg Tab) By Mouth every 8 hours. Comment: Patient Portal You may access all of your results and other medical record information on our secure patient portal. If you are not signed up for this yet, please contact [employer] at [phone] to get signed up today. ODILIA Award Nomination The ODILIA (Diseases Attacking the Immune SYstem) Award is an international recognition program that honors and celebrates the skillful, compassionate care nurses provide every day. Anyone who experiences or observes amazing care being provided by a nurse is encouraged to submit a nomination. To nominate your nurse, use your smart phone to scan the QR code below. You may receive a survey from [employer] asking you to rate your care experience. Your feedback is important and will help us understand what we do well and how we can improve the quality of care we provide to you, your loved ones and our community. It???s an honor to serve you. Thank you for choosing [facility] Patient Education Materials: Urinary Tract Infection, Adult A urinary tract infection (UTI) is an infection of any part of the urinary tract. The urinary tract includes: ??? The kidneys. ??? The ureters. ??? [...] these instructions at home: Medicines ??? Take alty-dzy-bgtggop and prescription medicines only as told by [...] provider. Document Revised: 04/27/2021 Document Reviewed: 05/02/2021 [employer] (formerly [employer]) Patient Education ? 2023 [employer] (formerly [employer] ZEFERINO Alonzo JAMIE L , have received the following patient education materials/instructions and have verbalized understanding: Patient Education Materials: Urinary Tract Infection, Adult, Lrbv-gj-Kskc Follow-up Instructions: With: Address: When: AJIT PETTIT [address] [place] [address] Business (1) In 3 days 01/27/2025 Comments: Call Dr for diagnosis based follow up Patient Signature Date Clinician/Nurse Signature Date 01/24/2025 12:25:34 ED CLINICAL SUMMARY Observed: 01/24/2025 12:25 PM Status: F Source: [facility] ED Clinical Summary [address] [address] ED Clinical Summary Person Information Name: RACHEL ZUÑIGA [facility] Age: 45 Years : 1980 Sex: Female Language: Irish PCP: AJIT PETTIT CNP Marital Status: Visit [...] 12:25:32 01/24/2025 12:25:32 01/24/2025 12:25:32 ADDRESS: [address] [id number] PHYS DOC NOTES: MEDICAL INFORMATION: Prescriptions Given: New Medications [id number], [address], [place] [id number], [phone] ciprofloxacin (Cipro 500 mg Tab) 1 Tablets [...] EDUCATION INFORMATION: Instructions: Urinary Tract Infection, Adult, Pxrh-ww-Hcrz Follow up: With: Address: When: AJIT PETTIT [address] [place] [address] [employer] In 3 days 01/27/2025 Comments: Call Dr for diagnosis based follow up DIAGNOSIS: UTI symptoms UA WITH CULT RFLX Collected: 11:39 AM Status: F Source: [facility] TYPE CODE TESTS RESULT OUT OF RANGE REFERENCE UNITS LAB 9194-2([facility]) CLASS:TYPE:PT: URINE COLLECTION METHOD:NOM:* Clean Catch Normal LAB 58947-1([facility]) OBSERVATION:CO SUPRIYA:PT:URINE:N OM:AUTOMATED Yellow Normal Yellow Result Comment: Microscopic readings are only performed on those samples that meet specific criteria set forth by [facility]. LAB 90548-3([facility]) CLARITY:TYPE:P T:URINE:NOM: Turbid Abnormal Clear LAB 5811-5([facility]) OBSERVATION:SP GRAV:PT:URINE: SEMIQN:TEST STRIP 1.015 Unknown 1.005-1.030 LAB 5803-2([facility]) PH:LSCNC:PT:UR INE:SEMIQN:DAGOBERTO T STRIP 6.0 Unknown 5.0-9.0 LAB 27433-3([facility]) PROTEIN:PRTHR: PT:URINE:ORD:T EST STRIP Negative Normal Negative mg/dL LAB 35904-9([facility]) GLUCOSE:PRTHR: PT:URINE:ORD:T EST STRIP 1+ Abnormal Negative mg/dL LAB 79276-1([facility]) KETONES:PRTHR: PT:URINE:ORD:T EST STRIP.AUTOMATE D 1+ Abnormal Negative mg/dL LAB 34762-5([facility]) BILIRUBIN:PRTH R:PT:URINE:ORD :TEST STRIP.AUTOMATE D Negative Normal Negative mg/dL LAB 10282-8([facility]) HEMOGLOBIN:MCN C:PT:URINE:COURTNEY IQN:TEST STRIP.AUTOMATE D Negative Normal Negative mg/dL LAB 21222-2([facility]) NITRITE:PRTHR: PT:URINE:ORD:T EST STRIP.AUTOMATE D Negative Normal Negative mg/dL LAB 07584-0([facility]) UROBILINOGEN:M CNC:PT:URINE:S EMIQN:TEST STRIP Negative Normal Negative mg/dL LAB 49564-8([facility]) LEUKOCYTE ESTERASE:PRTHR :PT:URINE:ORD: TEST STRIP.AUTOMATE D Negative Normal Negative CD:84404 55826 LAB 72076-1([facility]) LEUKOCYTES:KENDRA IC:PT:URINE SED:QN:AUTOMAT ED COUNT 0-5 Normal 0-5 CD:16445 78102 LAB 44402-3(LOINC) ERYTHROCYTES:P RTHR:PT:URINE SED:ORD:MICROS COPY.LIGHT 4-20 Abnormal 0-3 CD:28513 21105 LAB 32275-9(LOINC) EPITHELIAL CELLS.SQUAMOUS :NARIC:PT:URIN E SED:QN:AUTOMAT ED COUNT >10 Unknown CD:16429 63620 LAB 15182-8(LOINC) BACTERIA:PRTHR :PT:URINE:ORD: AUTOMATED Trace Normal Trace /HPF LAB 80314-4(LOINC) MUCUS:PRTHR:PT :URINE:ORD:AUT OMATED Trace Normal Negative CD:46556 75414 LAB 49884-5(LOINC) YEAST.BUDDING: PRTHR:PT:URINE :ORD:COMPUTER ASSISTED 1+ Abnormal CD:58152 85302 Performed By: #### [id number] #### [facility] [address] [place] [address] ED NOTE-PHYSICIAN Observed: 01/24/2025 11:30 AM Status: F Source: [facility] ED Note-Physician Basic Information Time Seen: Tanvir RIVAS, Hussein Jose 01/24/2025 11:40 Chief Complaint c/o worsening UTI [...] 6 tab(s), Refills(s) 0, Pharmacy: [facility]/pharmacy #[id number], 165, cm, 01/24/25 11:37:00 EDT, Height/Length Dosing, 70.1, kg, 01/24/25 11:37:00 EDT, Weight Dosing fluconazole, 300 mg = 2 tab(s), Tab, Oral, Once, Stop date 01/24/25 12:04:00 EDT, STAT, Start date 01/24/25 12:04:00 EDT, 01/24/25 12:04:00 EDT fluconazole, 150 mg = 1 tab(s), Oral, q7day, take on 01/31/2025, # 2 tab(s), Refills(s) 0, [id number], 165, cm, 01/24/25 11:37:00 EDT, Height/Length Dosing, 70.1, kg, 01/24/25 11:37:00 EDT, Weight Dosing ondansetron, 4 mg = 1 tab(s), Tab-Dis, Oral, Once, Stop date 01/24/25 12:04:00 EDT, STAT, Start date 01/24/25 12:04:00 EDT, 01/24/25 12:04:00 EDT ondansetron, 4 mg = 1 tab(s), Oral, q8hr, PRN Nausea/Vomiting, # 12 tab(s), Refills(s) 0, [id number], 165, cm, 01/24/25 11:37:00 EDT, Height/Length Dosing, 70.1, kg, 01/24/25 11:37:00 EDT, Weight Dosing phenazopyridine, 100 mg = 1 tab(s), Oral, TID, X 7 day(s), # 21 tab(s), Refills(s) 0, [id number], 165, cm, 01/24/25 11:37:00 EDT, Height/Length [...] AJIT PETTIT In 3 days 01/27/2025 EDT [address] [place] [address] Business (1) Additional Instructions: Call Dr for diagnosis based follow up Patient Education Urinary Tract Infection, Adult, Zlpi-nu-Bzwp Attestation Patient seen and evaluated by the physician office services assistant. Attending physician was present in the emergency department and supervised care. This visit was performed by both the physician and an APC. I performed all aspects of the MDM as documented. This report was transcribed using voice recognition software. Every effort was made to ensure accuracy, however, inadvertently computerized cheese tester mistakes may be present. Appropriate healthcare PPE was used in evaluating this patient. The patient was placed in a mask. The healthcare provider was wearing mask, gloves, and utilizing proper hand hygiene. All equipment was properly cleansed. I performed a substantive part of the MDM during the patient???s E/M visit. I personally made or approved the documented management plan and acknowledge its risk of complications. (Independent Interpretation) My (EKG/X-Ray/US/CT as applicable) interpretation as above. (Discussion) Management/test interpretation discussed with APC. Problem List/Past Medical History Ongoing Anemia Anxiety [...] of urethral stricture (08/24/2022), Appendectomy, Cholecystectomy. Medications Inpatient No active inpatient medications Home acetaminophen Cipro 500 mg Tab, 500 mg= 1 tab(s), Oral, q12hr Depakote ER 500 mg Tab-ER, Oral, Daily Diflucan 150 mg Tab, 150 mg= 1 tab(s), Oral, q7day divalproex sodium 250 mg ER Tab, Oral, Daily divalproex sodium 500 mg ER Tab, Oral, Daily doxazosin 2 mg Tab, 2 mg= 1 tab(s), Oral, Daily, 3 refills gabapentin 600 mg Tab, Oral, TID gabapentin 800 mg Tab, Oral, TID Keflex 500 mg Cap, 500 mg= 1 cap(s), Oral, Daily LORazepam 0.5 mg Tab, Oral, TID melatonin 1 mg oral tablet, 1 mg= 1 tab(s), Oral, Once a day (at bedtime), PRN melatonin 5 mg oral tablet, 5 mg= 1 tab(s), Oral, Once a day (at bedtime), PRN meloxicam 15 mg oral tablet, Oral, Daily meloxicam 15 mg oral tablet, Oral, Daily metformin 500 mg oral tablet, Oral, BID Multi complete Pyridium 100 mg Tab, 100 mg= 1 tab(s), Oral, TID sertraline 50 mg Tab, 50 mg= 1 tab(s), Oral, Daily simvastatin 5 mg Tab, Oral, Once a day (at bedtime) tiZANidine 4 mg Tab, Oral, q8hr Tylenol, Oral Valium 5 mg Tab, Oral, q8hr Vitamin D, Oral Zofran ODT 4 mg Tab-Dis, 4 mg= 1 tab(s), Oral, q8hr, PRN Allergies Bactrim (Unknown) Latex (Hives) Ultram (seizures) amitriptyline (Seizure) Social History Alcohol - Low Risk, 10/27/2019 Substance Abuse - Denies Substance Abuse, 07/09/2024 Tobacco - High Risk, 10/27/2019 10 or more cigarettes (1/2 pack or more)/day in last 30 days, Smoker, current status unknown Tobacco Use:. Cigarettes, Yes, 07/31/2022 Family History Asthma: Grandparent. Bowel function: Grandparent. Cancer: Mother and Grandparent. Heart disease: Grandparent. Hypercholesterolaemia: Mother. Hypertension: Mother. Kidney stones: Grandparent. Mental illness: Mother. Migraine: Mother. Stroke: Grandparent. Lab Results UA Spec Desc: Clean Catch (01/24/25 11:39:00) UA Color: Yellow (01/24/25 11:39:00) UA Clarity: Turbid Abnormal (01/24/25 11:39:00) UA Spec Grav: 1.015 (01/24/25 11:39:00) UA pH: 6.0 (01/24/25 11:39:00) UA Protein: Negat (01/24/25 11:39:00) UA Glucose: 1+ Abnormal (01/24/25 11:39:00) UA Ketones: 1+ Abnormal (01/24/25 11:39:00) UA Bili: Negat (01/24/25 11:39:00) UA Blood: Negat (01/24/25 11:39:00) UA Nitrite: Negat (01/24/25 11:39:00) UA Urobilinogen: Negat (01/24/25 11:39:00) UA Leuk Est: Negat (01/24/25 11:39:00) UA RBC: 4-20 Abnormal (01/24/25 11:39:00) UA Squam Epithelial: >10 (01/24/25 11:39:00) UA WBC: 0-5 (01/24/25 11:39:00) UA Bacteria: Trace (01/24/25 11:39:00) UA Mucous: Trace (01/24/25 11:39:00) UA Budding Yeast: 1+ Abnormal (01/24/25 11:39:00) Diagnostic Results No qualifying data available. Result Comment: Electronical ly Signed By: Hussein Ramey PA-C\.br\Date and Time Signed: 01/24/25 14:33 EDT\.br\Electronically Co-Signed By: Laura Marte M.D..br\Date and Time Co-Signed: 01/24/25 14:50 EDT URINE CULTURE Observed: 01/18/2025 3:45 PM Status: F Source: [facility] 50,000 colonies/ml mixed bacterial skin contaminants 2 Days PERFORMED BY: [place] [address] PATHOLOGIST CORRECTION OFFICER MAURO ELLSWORTH M.D. Performed By: #### CUU #### [address] BREAST LT LIMITED Observed: 8:19 AM Status: COMPLETED Source: [facility] Main [place] [address] [place] [address] Mammography Report Signed Patient: Rachel Zuñiga MR#: [id number] 1 : 1980 Acct:[id number] Age/Sex: 44 / F ADM Date: 09/06/24 Loc: [place] Room: Type: [facility] Attending Dr: Ajit DEJESUS Copies to: OLEG Sharp Ordering Provider: OLEG Sharp Date of Service: 09/06/24 MM/MM diagnostic mammo LT w/CAD: Breast pain, left ([id number]) US/US breast LT limited: Breast pain, left [...] Eda Yañez M.D.09/06/2024 8:56 AM Dictation Location: [facility] Transcribed By: ROSA MARIA 09/06/24855 Dictated By: Eda Yañez MD 09/06/24818 Signed By: <Electronically signed by MD Eda Yañez in OV> 09/06/24855 PATHOLOGY REQUEST FOR LAB YUSRA Collected: 09/05/2024 8:05 AM Status: F Source: [facility] Order Comment: PATH SENDOUT -GI SPECIMEN TYPE CODE TESTS RESULT OUT OF RANGE REFERENCE UNITS LAB PATH TO [facility] Pathology Request for Lab Yusra Result Comment: See report. Scanned copy available in EMR. PERFORMED BY: [place] [address] PATHOLOGIST CORRECTION OFFICER MAURO ELLSWORTH M.D. Performed By: #### PATH TO [facility] #### [address] GLUCOSE POCT GLUCOMETERS Collected: 09/05/2024 7:14 A M Status: F Source: [facility] TYPE CODE TESTS RESULT OUT OF RANGE REFERENCE UNITS LAB GLUPOC Glucose Poc Glucometers 132 mg/dL Result Comment: Random Gluco se Reference Range is dependent on time and content of last meal. Glucose of more than 200 mg/dL in a nonstressed, ambulatory subject supports the diagnosis of Diabetes Mellitus. LAB COMM1 Commemt1 Glu2: Cleaned Meter Result Comment: PERFORMED BY : [place] [address] PATHOLOGIST CORRECTION OFFICER MAURO ELLSWORTH M.D. Performed By: #### GLULS ### # Point of Care testing , US BREAST RT LIMITED Observed: 4 4:42 PM Status: COMPLETED Source: [facility] [place] [address] Ultrasound Report Signed Patient: Rachel Zuñiga MR#: [id number] 1 : 1980 Acct:[id number] Age/Sex: 44 / F ADM Date: 07/24/24 Loc: [facility] Room: Type: [facility] Attending Dr: Ajit DEJESUS Ordering Provider: OLEG [...] Praveen Welch M.D.07/25/2024 10:48 AM Dictation Location: [facility] Tech: Dominique Singh Transcribed By: ROSA MARIA 07/25/24 1048 Dictated By: Praveen Welch DO 07/24/24 1642 Signed By: <Electronically signed by Praveen Welch DO in OV> 07/25/24 1048 ED PATIENT EDUCATION NOTE Observed: 03/2024 3:25 PM Status: C Source: [facility] ED Patient Education Note Infectious Disease Viral [...] Medicines to treat symptoms. These can include caap-hiu-fjtlgot medicine for pain and fever, medicines for cough or congestion, and medicines for diarrhea. ? Antiviral medicines. These medicines are available only for certain types of viruses. Some viral illnesses can be prevented with vaccinations. A common example is the flu shot. Follow these instructions at home: Medicines ? Take mcdc-oyt-ohnzlxy and prescription medicines only as told by [...] and water are not available, use hand steaming machine operator. ? Avoid touching your nose, eyes, and mouth, especially if you have not washed your hands recently. ? If anyone in your household has a viral infection, clean all household surfaces that may have been in contact with the virus. Use soap and hot water. You may also use a commercially prepared, bleach-containing solution. ? Stay away from people who are sick with symptoms of a viral infection. ? Do not share items such as toothbrushes and water bottles with other people. ? Keep your vaccinations up to date. This includes getting a yearly flu shot. ? Eat a healthy diet and get plenty of rest. Contact a health care provider if: ? You have symptoms of a viral illness that do not go away. ? Your symptoms come back after going away. ? Your symptoms get worse. Get help right away if: ? You have trouble breathing. ? You have a severe headache or a stiff neck. ? You have severe vomiting or pain in your abdomen. These symptoms may be an emergency. Get help right away. Call 911. ? Do not wait to see if the symptoms will go away. ? Do not drive yourself to the hospital. This information is not intended to replace advice given to you by your health care provider. Make sure you discuss any questions you have with your health care provider. Document Revised: 10/06/2023 Document Reviewed: 07/21/2023 [employer] ([employer]) Patient Education ? 2023 [employer] (formerly [employer]Nutrition Dehydration, Adult Dehydration is a condition in [...] the causes? Dehydration may be caused by: ? Health conditions, such as diarrhea, vomiting, fever, infection, or sweating or urinating a lot. ? Not drinking enough fluids. ? Certain medicines, such as medicines that remove excess fluid from the body (diuretics). ? Lack of safe drinking water. ? Not being able to get enough water and food. What increases the risk? The following factors may make you more likely to develop this condition: ? Having a long-term (chronic) illness that has not been treated properly, such as diabetes, heart disease, or kidney disease. ? Being 65 years of age or older. ? Having a disability. ? Living in a place that is high in altitude, where thinner, snuff drier air causes more fluid loss. ? Doing exercises that put stress on your body for a long time (endurance sports). ? Being active in a hot climate. What are the signs or symptoms? Symptoms of dehydration depend on how severe it is. Mild or moderate dehydration ? Thirst. ? Dry lips or dry mouth. ? Dizziness or light-headedness. ? Muscle cramps. ? Dark urine. Urine may be the color of tea. ? Less urine or tears produced than usual. ? Headache. Severe dehydration ? Changes in skin. Your skin may be cold and clammy, blotchy, or pale. Your skin also may not return to normal after being lightly pinched and released. ? Little or no tears, urine, or sweat. ? Rapid breathing and low blood pressure. Your pulse may be weak or may be faster than 100 beats per minute when you are sitting still. ? Other changes, such as: ? Feeling very thirsty. ? Sunken eyes. ? Cold hands and feet. ? Confusion. ? Being very tired (lethargic) or having trouble waking from sleep. ? Short-term weight loss. ? Loss of consciousness. How is this diagnosed? This [...] needs to be treated in a hospital. ? Mild or moderate dehydration can be treated at home. You may be asked to: ? Drink more fluids. ? Drink an oral rehydration solution (ORS). This drink restores fluids, salts, and minerals in the blood (electrolytes). ? Stop any activities that caused dehydration, such as exercise. ? Cool off with cool compresses, cool mist, or cool fluids, if heat or too much sweat caused your condition. ? Take medicine to treat fever, if fever caused your condition. ? Take medicine to treat nausea and diarrhea, if vomiting or diarrhea caused your condition. ? Severe dehydration can be treated: ? With IV fluids. ? By correcting abnormal levels of electrolytes in your body. ? By treating the underlying cause of dehydration. Follow these instructions at home: Oral rehydration solution If told by your health care provider, drink an ORS: ? Make an ORS by following instructions on the package. ? Start by drinking small amounts, about ? cup (120 mL) every 5?10 minutes. ? Slowly increase how much you drink until you have taken the amount recommended by your health care provider. Eating and drinking ? Drink enough clear fluid to keep your urine pale yellow. If you were told to drink an ORS, finish the ORS first and then start slowly drinking other clear fluids. Drink fluids such as: ? Water. Do not drink only water. Doing that can lead to hyponatremia, which is having too little salt (sodium) in the body. ? Water from ice chips you suck on. ? Diluted fruit juice. This is fruit juice that you have added water to. ? Low-calorie sports drinks. ? Eat foods that contain a healthy balance of electrolytes, such as bananas, oranges, potatoes, tomatoes, and spinach. ? Do not drink alcohol. ? Avoid the following: ? Drinks that contain a lot of sugar. These include high-calorie sports drinks, fruit juice that is not diluted, and soda. ? Caffeine. ? Foods that are greasy or contain a lot of fat or sugar. General instructions ? Take idib-idj-wllmukd and prescription medicines only as told by your health care provider. ? Do not take sodium tablets. Doing that can lead to having too much sodium in the body (hypernatremia). ? Return to your normal activities as told by your health care provider. Ask your health care provider what activities are safe for you. ? Keep all follow-up visits. Your health care provider may need to check your progress and suggest new ways to treat your condition. Contact a health care provider if: ? You have muscle cramps, pain, or discomfort, such as: ? Pain in your abdomen and the pain gets worse or stays in one area. ? Stiff neck. ? You have a rash. ? You are more irritable than usual. ? You are sleepier or have a harder time waking. ? You feel weak or dizzy. ? You feel very thirsty. Get help right away if: ? You have symptoms of severe dehydration. ? You vomit every time you eat or drink. ? Your vomiting gets worse, does not go away, or includes blood or green matter (bile). ? You are getting treatment but symptoms are getting worse. ? You have a fever. ? You have a severe headache. ? You have: ? Diarrhea that gets worse or does not go away. ? Blood in your stool. This may cause stool to look black and tarry. ? Not urinating, or urinating only a small amount of very dark urine, within 6?8 hours. ? You have trouble breathing. These symptoms may be an emergency. Get help right away. ? Do not wait to see if the symptoms will go away. ? Do not drive yourself to the hospital. Call 911. This information is not intended to replace advice given to you by your health care provider. Make sure you discuss any questions you have with your health care provider. Document Revised: 04/19/2023 Document Reviewed: 04/19/2023 Elsevier Patient Education ? 2023 [employer] ED PATIENT SUMMARY Observed: 07/09/2024 3:25 PM Status: C Source: [facility] ED Patient Summary [address] [address] Patient Discharge Instructions Person Information Name: RACHEL ZUÑIGA Age: 44 Years Arrival Date: 07/09/2024 12:39:08 Discharge Diagnosis: Malaise; Viral syndrome Primary Care Physician: AJIT PETTIT CNP Provider Information Primary Provider: Ambrose Cedeño DO [employer]chand[employer] Associate:None The exam and treatment you received in the Emergency Department were for an urgent problem and are not intended as complete care. It is important that you follow up with a doctor, nurse practitioner, or physician?s office services assistant for ongoing care. If your symptoms become worse or you do not improve as expected and you are unable to reach your usual health care provider, you should return to the Emergency Department. We are available 24 hours a day. RACHEL ZUÑIGA has been given the following list of patient education materials, prescriptions and follow-up instructions: Follow-up Instructions: With: Address: When: AJIT PETTIT [address] [place] [address] Business (1) In 3 days 07/12/2024 Comments: [...] opioids can be used to help relieve etmixugd-ln-addyhq pain and are often prescribed following a [...] may include visitors, children, friends, and family). ? Safely dispose of unused prescription opioids: Find your community drug take- back program or your pharmacy mail-back program, or flush them down the toilet, following guidance from the Food and Drug Administration (www.fda.gov/Drugs/ResourcesForYou). ? Visit www.cdc.gov/drugoverdose to learn about the risks of opioids abuse and overdose. ? If you believe you may be struggling with addiction, tell your health health care specialist and ask for guidance or call [facility] National Helpline at 2-034-210-ICAB. j Source: [place] Department of Health and Human Services/Center for Disease Control & Prevention [facility] Medications Given: Medication Dose Route No medications found. Medication Information: Medications to Continue with No Changes Other [...] mg Tab) By Mouth every 8 hours. Comment: Pharmacy Information: Patient Portal You may access all of your results and other medical record information on our secure patient portal. If you are not signed up for this yet, please contact [employer] at [phone] to get signed up today. ODILIA Award Nomination The ODILIA (Diseases Attacking the Immune SYstem) Award is an international recognition program that honors and celebrates the skillful, compassionate care nurses provide every day. Anyone who experiences or observes amazing care being provided by a nurse is encouraged to submit a nomination. To nominate your nurse, use your smart phone to scan the QR code below. You may receive a survey from [employer] asking you to rate your care experience. Your feedback is important and will help us understand what we do well and how we can improve the quality of care we provide to you, your loved ones and our community. It?s an honor to serve you. Thank you for choosing [facility] Patient Education Materials: Dehydration, Adult Dehydration is a condition in [...] the causes? Dehydration may be caused by: ? Health conditions, such as diarrhea, vomiting, fever, infection, or sweating or urinating a lot. ? Not drinking enough fluids. ? Certain medicines, such as medicines that remove excess fluid from the body (diuretics). ? Lack of safe drinking water. ? Not being able to get enough water and food. What increases the risk? The following factors may make you more likely to develop this condition: ? Having a long-term (chronic) illness that has not been treated properly, such as diabetes, heart disease, or kidney disease. ? Being 65 years of age or older. ? Having a disability. ? Living in a place that is high in altitude, where thinner, snuff drier air causes more fluid loss. ? Doing exercises that put stress on your body for a long time (endurance sports). ? Being active in a hot climate. What are the signs or symptoms? Symptoms of dehydration depend on how severe it is. Mild or moderate dehydration ? Thirst. ? Dry lips or dry mouth. ? Dizziness or light-headedness. ? Muscle cramps. ? Dark urine. Urine may be the color of tea. ? Less urine or tears produced than usual. ? Headache. Severe dehydration ? Changes in skin. Your skin may be cold and clammy, blotchy, or pale. Your skin also may not return to normal after being lightly pinched and released. ? Little or no tears, urine, or sweat. ? Rapid breathing and low blood pressure. Your pulse may be weak or may be faster than 100 beats per minute when you are sitting still. ? Other changes, such as: ? Feeling very thirsty. ? Sunken eyes. ? Cold hands and feet. ? Confusion. ? Being very tired (lethargic) or having trouble waking from sleep. ? Short-term weight loss. ? Loss of consciousness. How is this diagnosed? This [...] needs to be treated in a hospital. ? Mild or moderate dehydration can be treated at home. You may be asked to: ? Drink more fluids. ? Drink an oral rehydration solution (ORS). This drink restores fluids, salts, and minerals in the blood (electrolytes). ? Stop any activities that caused dehydration, such as exercise. ? Cool off with cool compresses, cool mist, or cool fluids, if heat or too much sweat caused your condition. ? Take medicine to treat fever, if fever caused your condition. ? Take medicine to treat nausea and diarrhea, if vomiting or diarrhea caused your condition. ? Severe dehydration can be treated: ? With IV fluids. ? By correcting abnormal levels of electrolytes in your body. ? By treating the underlying cause of dehydration. Follow these instructions at home: Oral rehydration solution If told by your health care provider, drink an ORS: ? Make an ORS by following instructions on the package. ? Start by drinking small amounts, about ? cup (120 mL) every 5?10 minutes. ? Slowly increase how much you drink until you have taken the amount recommended by your health care provider. Eating and drinking ? Drink enough clear fluid to keep your urine pale yellow. If you were told to drink an ORS, finish the ORS first and then start slowly drinking other clear fluids. Drink fluids such as: ? Water. Do not drink only water. Doing that can lead to hyponatremia, which is having too little salt (sodium) in the body. ? Water from ice chips you suck on. ? Diluted fruit juice. This is fruit juice that you have added water to. ? Low-calorie sports drinks. ? Eat foods that contain a healthy balance of electrolytes, such as bananas, oranges, potatoes, tomatoes, and spinach. ? Do not drink alcohol. ? Avoid the following: ? Drinks that contain a lot of sugar. These include high-calorie sports drinks, fruit juice that is not diluted, and soda. ? Caffeine. ? Foods that are greasy or contain a lot of fat or sugar. General instructions ? Take jbyj-hhw-terebeu and prescription medicines only as told by your health care provider. ? Do not take sodium tablets. Doing that can lead to having too much sodium in the body (hypernatremia). ? Return to your normal activities as told by your health care provider. Ask your health care provider what activities are safe for you. ? Keep all follow-up visits. Your health care provider may need to check your progress and suggest new ways to treat your condition. Contact a health care provider if: ? You have muscle cramps, pain, or discomfort, such as: ? Pain in your abdomen and the pain gets worse or stays in one area. ? Stiff neck. ? You have a rash. ? You are more irritable than usual. ? You are sleepier or have a harder time waking. ? You feel weak or dizzy. ? You feel very thirsty. Get help right away if: ? You have symptoms of severe dehydration. ? You vomit every time you eat or drink. ? Your vomiting gets worse, does not go away, or includes blood or green matter (bile). ? You are getting treatment but symptoms are getting worse. ? You have a fever. ? You have a severe headache. ? You have: ? Diarrhea that gets worse or does not go away. ? Blood in your stool. This may cause stool to look black and tarry. ? Not urinating, or urinating only a small amount of very dark urine, within 6?8 hours. ? You have trouble breathing. These symptoms may be an emergency. Get help right away. ? Do not wait to see if the symptoms will go away. ? Do not drive yourself to the hospital. Call 911. This information is not intended to replace advice given to you by your health care provider. Make sure you discuss any questions you have with your health care provider. Document Revised: 04/19/2023 Document Reviewed: 04/19/2023 [employer] (formerly [employer]) Patient Education ? 2023 [employer] (formerly [employer] Viral Illness, Adult Viruses are tiny germs [...] Medicines to treat symptoms. These can include rxsv-dpw-pwxrcib medicine for pain and fever, medicines for cough or congestion, and medicines for diarrhea. ? Antiviral medicines. These medicines are available only for certain types of viruses. Some viral illnesses can be prevented with vaccinations. A common example is the flu shot. Follow these instructions at home: Medicines ? Take kksw-boe-vpcufxb and prescription medicines only as told by [...] and water are not available, use hand steaming machine operator. ? Avoid touching your nose, eyes, and mouth, especially if you have not washed your hands recently. ? If anyone in your household has a viral infection, clean all household surfaces that may have been in contact with the virus. Use soap and hot water. You may also use a commercially prepared, bleach-containing solution. ? Stay away from people who are sick with symptoms of a viral infection. ? Do not share items such as toothbrushes and water bottles with other people. ? Keep your vaccinations up to date. This includes getting a yearly flu shot. ? Eat a healthy diet and get plenty of rest. Contact a health care provider if: ? You have symptoms of a viral illness that do not go away. ? Your symptoms come back after going away. ? Your symptoms get worse. Get help right away if: ? You have trouble breathing. ? You have a severe headache or a stiff neck. ? You have severe vomiting or pain in your abdomen. These symptoms may be an emergency. Get help right away. Call 911. ? Do not wait to see if the symptoms will go away. ? Do not drive yourself to the hospital. This information is not intended to replace advice given to you by your health care provider. Make sure you discuss any questions you have with your health care provider. Document Revised: 10/06/2023 Document Reviewed: 07/21/2023 [employer] (formerly [employer]) Patient Education ? 2023 [employer]. I, RACHEL ZUÑIGA , have received the following patient education materials/instructions and have verbalized understanding: Patient Education Materials: Dehydration, Adult; Viral Illness, Adult Follow-up Instructions: With: Address: When: AJIT PETTIT [address] [place] [address] [facility] ([employer] In 3 days 07/12/2024 Comments: Call the [...] you develop any new or worsening symptoms. Patient Signature Date Clinician/Nurse Signature Date 07/09/2024 15:25:02 ED CLINICAL SUMMARY Observed: 07/09/2024 3:25 PM Status: C Source: [facility] ED Clinical Summary [place] [id number] ED Clinical Summary Person Information Name: RACHEL [facility] Age[facility] 44 Years : 1980 Sex: Female Language: Irish PCP: AJIT PETTIT CNP Marital Status: Phone: [phone] Visit Id: Visit Reason: Syncope/Near syncope; Body [...] 07/09/2024 15:24:59 07/09/2024 15:24:59 07/09/2024 15:24:59 ADDRESS: [address] [place] [phone] PHYS DOC NOTES: MEDICAL INFORMATION: Prescriptions Given: [...] up: With: Address: When: AJIT PETTIT [address] [place] [address] [employer] ([employer] In 3 days 07/12/2024 Comments: Call the [...] or worsening symptoms. DIAGNOSIS: Malaise; Viral syndrome ED NOTE-PHYSICIAN Observed: 07/09/2024 2:18 PM Status: F Source: [facility] ED Note-Physician Basic Information Time Seen: Ambrose Cedeño DO. 07/09/2024 13:18 Chief Complaint really shakey, light headed and I feel llike I'm gonna pass out . pt verbalized has been sick for 1 week and been to two different hospitals and diagnosised wiht low sodium and elevated WBC. pt had CT of abd and x-ray and went to [facility] History of Present Illness 44-year-old female to the emergency department with chief complaint of feeling unwell for the last week. She reports she has had malaise, fatigue, intermittently shaky, felt lightheaded earlier. She reports that she has been seen both at [facility] and some urgency department in [facility] emergency department this week for [...] dry clinically. Previous labs and imaging from [facility] in [facility] reviewed. Aside from her mild leukocytosis and [...] slight leukocytosis, down from previous labs at [facility] and [facility]. Otherwise unremarkable. Mild hyponatremia which [...] In 3 days 07/12/2024 EDT [address] [place] [address]- Business (1) Additional Instructions: Call the office [...] you develop any new or worsening symptoms. Patient Education Dehydration, Adult Viral Illness, Adult Problem List/Past Medical History Ongoing Anemia Anxiety [...] of urethral stricture (08/24/2022), Appendectomy, Cholecystectomy. Medications Inpatient No active inpatient medications Home acetaminophen Depakote ER 500 mg Tab-ER, Oral, Daily divalproex sodium 250 mg ER Tab, Oral, Daily divalproex sodium 500 mg ER Tab, Oral, Daily doxazosin 2 mg Tab, 2 mg= 1 tab(s), Oral, Daily, 3 refills gabapentin 600 mg Tab, Oral, TID gabapentin 800 mg Tab, Oral, TID Keflex 500 mg Cap, 500 mg= 1 cap(s), Oral, Daily LORazepam 0.5 mg Tab, Oral, TID melatonin 1 mg oral tablet, 1 mg= 1 tab(s), Oral, Once a day (at bedtime), PRN melatonin 5 mg oral tablet, 5 mg= 1 tab(s), Oral, Once a day (at bedtime), PRN meloxicam 15 mg oral tablet, Oral, Daily meloxicam 15 mg oral tablet, Oral, Daily metformin 500 mg oral tablet, Oral, BID Multi complete sertraline 50 mg Tab, 50 mg= 1 tab(s), Oral, Daily simvastatin 5 mg Tab, Oral, Once a day (at bedtime) tiZANidine 4 mg Tab, Oral, q8hr Tylenol, Oral Valium 5 mg Tab, Oral, q8hr Vitamin D, Oral Allergies Bactrim (Unknown) Latex (Hives) Ultram (seizures) amitriptyline (Seizure) Social History Alcohol - Low Risk, 10/27/2019 Substance Abuse - Denies Substance Abuse, 07/09/2024 Tobacco - High Risk, 10/27/2019 10 or more cigarettes (1/2 pack or more)/day in last 30 days, Smoker, current status unknown Tobacco Use:. Cigarettes, Yes, 07/31/2022 Family History Asthma: Grandparent. Bowel function: Grandparent. Cancer: Mother and Grandparent. Heart disease: Grandparent. Hypercholesterolaemia: Mother. Hypertension: Mother. Kidney stones: Grandparent. Mental illness: Mother. Migraine: Mother. Stroke: Grandparent. Lab Results WBC: 14.9 E9/L High (07/09/24 12:50:00) RBC: 4.4 E12/L (07/09/24 12:50:00) HGB: 13.4 gm/dL (07/09/24 12:50:00) Hct: 38.9 % (07/09/24 12:50:00) MCV: 88.1 fL (07/09/24 12:50:00) MCH: 30.4 pg (07/09/24 12:50:00) MCHC: 34.5 gm/dL (07/09/24 12:50:00) RDW: 13.2 % (07/09/24 12:50:00) Platelet: 319 E9/L (07/09/24 12:50:00) MPV: 8.3 fL (07/09/24 12:50:00) Neutro Auto: 69.1 % (07/09/24 12:50:00) Lymph Auto: 24.7 % (07/09/24 12:50:00) [place] Auto: 4.4 % (07/09/24 12:50:00) Eos Auto: 0.8 % (07/09/24 12:50:00) Basophil Auto: 1 % (07/09/24 12:50:00) Neutro Absolute: 10.3 E9/L High (07/09/24 12:50:00) Lymph Absolute: 3.7 E9/L (07/09/24 12:50:00) [place] Absolute: 0.7 E9/L (07/09/24 12:50:00) Eos Absolute: 0.1 E9/L (07/09/24 12:50:00) Basophil Absolute: 0.2 E9/L (07/09/24 12:50:00) PT: 9.5 second(s) (07/09/24 12:50:00) INR: 0.85 (07/09/24 12:50:00) PTT: 28.9 second(s) (07/09/24 12:50:00) Glucose Lvl: 149 mg/dL (07/09/24 12:50:00) BUN: 9 mg/dL (07/09/24 12:50:00) Creatinine: 0.5 mg/dL (07/09/24 12:50:00) eGFR: 117 mL/min/1.73 m2 (07/09/24 12:50:00) BUN/Creat Ratio: 18 (07/09/24 12:50:00) Sodium Lvl: 131 mmol/L Low (07/09/24 12:50:00) Potassium Lvl: 4.1 mmol/L (07/09/24 12:50:00) Chloride: 99 mmol/L Low (07/09/24 12:50:00) CO2: 24 mmol/L (07/09/24 12:50:00) AGAP: 12 mEq/L (07/09/24 12:50:00) Calcium Lvl: 8.9 mg/dL (07/09/24 12:50:00) Alk Phos: 65 Int._Unit/L (07/09/24 12:50:00) ALT: 10 Int._Unit/L (07/09/24 12:50:00) AST: 11 Int._Unit/L (07/09/24 12:50:00) Total Protein: 7.2 gm/dL (07/09/24 12:50:00) Albumin Lvl: 4 gm/dL (07/09/24 12:50:00) Globulin: 3.2 gm/dL (07/09/24 12:50:00) A/G Ratio: 1.3 (07/09/24 12:50:00) Bili Total: 0.2 mg/dL (07/09/24 12:50:00) Bili Direct: 0 mg/dL (07/09/24 12:50:00) Bili Indirect: 0.2 mg/dL (07/09/24 12:50:00) Troponin HS: 3 pg/mL Low (07/09/24 12:50:00) Beta hCG Ql: NEGATIVE1 (07/09/24 12:50:00) Diagnostic Results XR Chest Single View * Preliminary * 07/09/24 14:13:07 NEGATIVE: No infiltrate, mass or other acute cardiopulmonary abnormality Read By: Ambrose Cedeño DO EKG Results EC07/09/24: SINUS RHYTHM No STEMI Normal QTc NORMAL ECG Signed By: Ambrose Cedeño DO 07/09/2024 13:06:52 Result Comment: Electronical ly Signed By: Ambrose Cedeño DO\.br\Date and Time Signed: 07/09/24 14:21 EDT ED PATIENT SUMMARY Observed: 07/09/2024 2:17 PM Status: F Source: [facility] ED Patient Summary [place] [id number] Patient Discharge Instructions Person Information Name: RACHEL ZUÑIGA Age: 44 Years Arrival Date: 07/09/2024 12:39:08 Discharge Diagnosis: Malaise; Viral syndrome Primary Care Physician: AJIT PETTIT CNP Provider Information Primary Provider: Ambrose Cedeño DO [employer] Merchandising Associate:None The exam and treatment you received in the Emergency Department were for an urgent problem and are not intended as complete care. It is important that you follow up with a doctor, nurse practitioner, or physician?s office services assistant for ongoing care. If your symptoms become worse or you do not improve as expected and you are unable to reach your usual health care provider, you should return to the Emergency Department. We are available 24 hours a day. RACHEL ZUÑIGA has been given the following list of patient education materials, prescriptions and follow-up instructions: Follow-up Instructions: With: Address: When: AJIT PETTIT [address] [place] [address] [employer] (1) In 3 days 07/12/2024 Comments: Call [...] opioids can be used to help relieve hghymohz-ek-mygpoe pain and are often prescribed following a [...] may include visitors, children, friends, and family). ? Safely dispose of unused prescription opioids: Find your community drug take- back program or your pharmacy mail-back program, or flush them down the toilet, following guidance from the Food and Drug Administration (www.fda.gov/Drugs/ResourcesForYou). ? Visit www.cdc.gov/drugoverdose to learn about the risks of opioids abuse and overdose. ? If you believe you may be struggling with addiction, tell your health health care specialist and ask for guidance or call [facility] National Helpline at 9-845-114-WXJN. h Source: [place] Department of Health and Human Services/Center for Disease Control & Prevention [facility] Medications Given: Medication Dose Route No medications found. Medication Information: Medications to Continue with No Changes Other [...] mg Tab) By Mouth every 8 hours. Comment: Pharmacy Information: Patient Portal You may access all of your results and other medical record information on our secure patient portal. If you are not signed up for this yet, please contact [employer] at [phone] to get signed up today. ODILIA Award Nomination The ODILIA (Diseases Attacking the Immune SYstem) Award is an international recognition program that honors and celebrates the skillful, compassionate care nurses provide every day. Anyone who experiences or observes amazing care being provided by a nurse is encouraged to submit a nomination. To nominate your nurse, use your smart phone to scan the QR code below. You may receive a survey from [employer] asking you to rate your care experience. Your feedback is important and will help us understand what we do well and how we can improve the quality of care we provide to you, your loved ones and our community. It?s an honor to serve you. Thank you for choosing [facility] Patient Education Materials: Dehydration, Adult Dehydration is a condition in [...] the causes? Dehydration may be caused by: ? Health conditions, such as diarrhea, vomiting, fever, infection, or sweating or urinating a lot. ? Not drinking enough fluids. ? Certain medicines, such as medicines that remove excess fluid from the body (diuretics). ? Lack of safe drinking water. ? Not being able to get enough water and food. What increases the risk? The following factors may make you more likely to develop this condition: ? Having a long-term (chronic) illness that has not been treated properly, such as diabetes, heart disease, or kidney disease. ? Being 65 years of age or older. ? Having a disability. ? Living in a place that is high in altitude, where thinner, snuff drier air causes more fluid loss. ? Doing exercises that put stress on your body for a long time (endurance sports). ? Being active in a hot climate. What are the signs or symptoms? Symptoms of dehydration depend on how severe it is. Mild or moderate dehydration ? Thirst. ? Dry lips or dry mouth. ? Dizziness or light-headedness. ? Muscle cramps. ? Dark urine. Urine may be the color of tea. ? Less urine or tears produced than usual. ? Headache. Severe dehydration ? Changes in skin. Your skin may be cold and clammy, blotchy, or pale. Your skin also may not return to normal after being lightly pinched and released. ? Little or no tears, urine, or sweat. ? Rapid breathing and low blood pressure. Your pulse may be weak or may be faster than 100 beats per minute when you are sitting still. ? Other changes, such as: ? Feeling very thirsty. ? Sunken eyes. ? Cold hands and feet. ? Confusion. ? Being very tired (lethargic) or having trouble waking from sleep. ? Short-term weight loss. ? Loss of consciousness. How is this diagnosed? This [...] needs to be treated in a hospital. ? Mild or moderate dehydration can be treated at home. You may be asked to: ? Drink more fluids. ? Drink an oral rehydration solution (ORS). This drink restores fluids, salts, and minerals in the blood (electrolytes). ? Stop any activities that caused dehydration, such as exercise. ? Cool off with cool compresses, cool mist, or cool fluids, if heat or too much sweat caused your condition. ? Take medicine to treat fever, if fever caused your condition. ? Take medicine to treat nausea and diarrhea, if vomiting or diarrhea caused your condition. ? Severe dehydration can be treated: ? With IV fluids. ? By correcting abnormal levels of electrolytes in your body. ? By treating the underlying cause of dehydration. Follow these instructions at home: Oral rehydration solution If told by your health care provider, drink an ORS: ? Make an ORS by following instructions on the package. ? Start by drinking small amounts, about ? cup (120 mL) every 5?10 minutes. ? Slowly increase how much you drink until you have taken the amount recommended by your health care provider. Eating and drinking ? Drink enough clear fluid to keep your urine pale yellow. If you were told to drink an ORS, finish the ORS first and then start slowly drinking other clear fluids. Drink fluids such as: ? Water. Do not drink only water. Doing that can lead to hyponatremia, which is having too little salt (sodium) in the body. ? Water from ice chips you suck on. ? Diluted fruit juice. This is fruit juice that you have added water to. ? Low-calorie sports drinks. ? Eat foods that contain a healthy balance of electrolytes, such as bananas, oranges, potatoes, tomatoes, and spinach. ? Do not drink alcohol. ? Avoid the following: ? Drinks that contain a lot of sugar. These include high-calorie sports drinks, fruit juice that is not diluted, and soda. ? Caffeine. ? Foods that are greasy or contain a lot of fat or sugar. General instructions ? Take gxso-cub-zmammku and prescription medicines only as told by your health care provider. ? Do not take sodium tablets. Doing that can lead to having too much sodium in the body (hypernatremia). ? Return to your normal activities as told by your health care provider. Ask your health care provider what activities are safe for you. ? Keep all follow-up visits. Your health care provider may need to check your progress and suggest new ways to treat your condition. Contact a health care provider if: ? You have muscle cramps, pain, or discomfort, such as: ? Pain in your abdomen and the pain gets worse or stays in one area. ? Stiff neck. ? You have a rash. ? You are more irritable than usual. ? You are sleepier or have a harder time waking. ? You feel weak or dizzy. ? You feel very thirsty. Get help right away if: ? You have symptoms of severe dehydration. ? You vomit every time you eat or drink. ? Your vomiting gets worse, does not go away, or includes blood or green matter (bile). ? You are getting treatment but symptoms are getting worse. ? You have a fever. ? You have a severe headache. ? You have: ? Diarrhea that gets worse or does not go away. ? Blood in your stool. This may cause stool to look black and tarry. ? Not urinating, or urinating only a small amount of very dark urine, within 6?8 hours. ? You have trouble breathing. These symptoms may be an emergency. Get help right away. ? Do not wait to see if the symptoms will go away. ? Do not drive yourself to the hospital. Call 911. This information is not intended to replace advice given to you by your health care provider. Make sure you discuss any questions you have with your health care provider. Document Revised: 04/19/2023 Document Reviewed: 04/19/2023 [employer] (formerly [employer]) Patient Education ? 2023 [employer] (formerly [employer]) [employer]. Viral Illness, Adult Viruses are tiny germs [...] Medicines to treat symptoms. These can include rsvm-qsh-ffeantv medicine for pain and fever, medicines for cough or congestion, and medicines for diarrhea. ? Antiviral medicines. These medicines are available only for certain types of viruses. Some viral illnesses can be prevented with vaccinations. A common example is the flu shot. Follow these instructions at home: Medicines ? Take hmpv-waf-guimydn and prescription medicines only as told by [...] and water are not available, use hand steaming machine operator. ? Avoid touching your nose, eyes, and mouth, especially if you have not washed your hands recently. ? If anyone in your household has a viral infection, clean all household surfaces that may have been in contact with the virus. Use soap and hot water. You may also use a commercially prepared, bleach-containing solution. ? Stay away from people who are sick with symptoms of a viral infection. ? Do not share items such as toothbrushes and water bottles with other people. ? Keep your vaccinations up to date. This includes getting a yearly flu shot. ? Eat a healthy diet and get plenty of rest. Contact a health care provider if: ? You have symptoms of a viral illness that do not go away. ? Your symptoms come back after going away. ? Your symptoms get worse. Get help right away if: ? You have trouble breathing. ? You have a severe headache or a stiff neck. ? You have severe vomiting or pain in your abdomen. These symptoms may be an emergency. Get help right away. Call 911. ? Do not wait to see if the symptoms will go away. ? Do not drive yourself to the hospital. This information is not intended to replace advice given to you by your health care provider. Make sure you discuss any questions you have with your health care provider. Document Revised: 10/06/2023 Document Reviewed: 07/21/2023 [employer] (formerly [employer]) Patient Education ? 2023 [employer]. ZEFERINO Alonzo JAMIE L , have received the following patient education materials/instructions and have verbalized understanding: Patient Education Materials: Dehydration, Adult; Viral Illness, Adult Follow-up Instructions: With: Address: When: AJIT PETTIT [address] [place] [address] [employer] ([employer] In 3 days 07/12/2024 Comments: Call the [...] you develop any new or worsening symptoms. Patient Signature Date Clinician/Nurse Signature Date 07/09/2024 14:17:31 ED PATIENT EDUCATION NOTE Observed: 03/2024 2:17 PM Status: F Source: [facility] ED Patient Education Note Infectious Disease Viral [...] Medicines to treat symptoms. These can include zwio-yox-hhwgluj medicine for pain and fever, medicines for cough or congestion, and medicines for diarrhea. ? Antiviral medicines. These medicines are available only for certain types of viruses. Some viral illnesses can be prevented with vaccinations. A common example is the flu shot. Follow these instructions at home: Medicines ? Take owly-eoz-tfdyjdd and prescription medicines only as told by [...] and water are not available, use hand steaming machine operator. ? Avoid touching your nose, eyes, and mouth, especially if you have not washed your hands recently. ? If anyone in your household has a viral infection, clean all household surfaces that may have been in contact with the virus. Use soap and hot water. You may also use a commercially prepared, bleach-containing solution. ? Stay away from people who are sick with symptoms of a viral infection. ? Do not share items such as toothbrushes and water bottles with other people. ? Keep your vaccinations up to date. This includes getting a yearly flu shot. ? Eat a healthy diet and get plenty of rest. Contact a health care provider if: ? You have symptoms of a viral illness that do not go away. ? Your symptoms come back after going away. ? Your symptoms get worse. Get help right away if: ? You have trouble breathing. ? You have a severe headache or a stiff neck. ? You have severe vomiting or pain in your abdomen. These symptoms may be an emergency. Get help right away. Call 911. ? Do not wait to see if the symptoms will go away. ? Do not drive yourself to the hospital. This information is not intended to replace advice given to you by your health care provider. Make sure you discuss any questions you have with your health care provider. Document Revised: 10/06/2023 Document Reviewed: 07/21/2023 [employer] Patient Education ? 2023 [employer] (formerly [employer]) Inc.Nutrition Dehydration, Adult Dehydration is a condition in [...] the causes? Dehydration may be caused by: ? Health conditions, such as diarrhea, vomiting, fever, infection, or sweating or urinating a lot. ? Not drinking enough fluids. ? Certain medicines, such as medicines that remove excess fluid from the body (diuretics). ? Lack of safe drinking water. ? Not being able to get enough water and food. What increases the risk? The following factors may make you more likely to develop this condition: ? Having a long-term (chronic) illness that has not been treated properly, such as diabetes, heart disease, or kidney disease. ? Being 65 years of age or older. ? Having a disability. ? Living in a place that is high in altitude, where thinner, snuff drier air causes more fluid loss. ? Doing exercises that put stress on your body for a long time (endurance sports). ? Being active in a hot climate. What are the signs or symptoms? Symptoms of dehydration depend on how severe it is. Mild or moderate dehydration ? Thirst. ? Dry lips or dry mouth. ? Dizziness or light-headedness. ? Muscle cramps. ? Dark urine. Urine may be the color of tea. ? Less urine or tears produced than usual. ? Headache. Severe dehydration ? Changes in skin. Your skin may be cold and clammy, blotchy, or pale. Your skin also may not return to normal after being lightly pinched and released. ? Little or no tears, urine, or sweat. ? Rapid breathing and low blood pressure. Your pulse may be weak or may be faster than 100 beats per minute when you are sitting still. ? Other changes, such as: ? Feeling very thirsty. ? Sunken eyes. ? Cold hands and feet. ? Confusion. ? Being very tired (lethargic) or having trouble waking from sleep. ? Short-term weight loss. ? Loss of consciousness. How is this diagnosed? This [...] needs to be treated in a hospital. ? Mild or moderate dehydration can be treated at home. You may be asked to: ? Drink more fluids. ? Drink an oral rehydration solution (ORS). This drink restores fluids, salts, and minerals in the blood (electrolytes). ? Stop any activities that caused dehydration, such as exercise. ? Cool off with cool compresses, cool mist, or cool fluids, if heat or too much sweat caused your condition. ? Take medicine to treat fever, if fever caused your condition. ? Take medicine to treat nausea and diarrhea, if vomiting or diarrhea caused your condition. ? Severe dehydration can be treated: ? With IV fluids. ? By correcting abnormal levels of electrolytes in your body. ? By treating the underlying cause of dehydration. Follow these instructions at home: Oral rehydration solution If told by your health care provider, drink an ORS: ? Make an ORS by following instructions on the package. ? Start by drinking small amounts, about ? cup (120 mL) every 5?10 minutes. ? Slowly increase how much you drink until you have taken the amount recommended by your health care provider. Eating and drinking ? Drink enough clear fluid to keep your urine pale yellow. If you were told to drink an ORS, finish the ORS first and then start slowly drinking other clear fluids. Drink fluids such as: ? Water. Do not drink only water. Doing that can lead to hyponatremia, which is having too little salt (sodium) in the body. ? Water from ice chips you suck on. ? Diluted fruit juice. This is fruit juice that you have added water to. ? Low-calorie sports drinks. ? Eat foods that contain a healthy balance of electrolytes, such as bananas, oranges, potatoes, tomatoes, and spinach. ? Do not drink alcohol. ? Avoid the following: ? Drinks that contain a lot of sugar. These include high-calorie sports drinks, fruit juice that is not diluted, and soda. ? Caffeine. ? Foods that are greasy or contain a lot of fat or sugar. General instructions ? Take ccle-qty-myncndd and prescription medicines only as told by your health care provider. ? Do not take sodium tablets. Doing that can lead to having too much sodium in the body (hypernatremia). ? Return to your normal activities as told by your health care provider. Ask your health care provider what activities are safe for you. ? Keep all follow-up visits. Your health care provider may need to check your progress and suggest new ways to treat your condition. Contact a health care provider if: ? You have muscle cramps, pain, or discomfort, such as: ? Pain in your abdomen and the pain gets worse or stays in one area. ? Stiff neck. ? You have a rash. ? You are more irritable than usual. ? You are sleepier or have a harder time waking. ? You feel weak or dizzy. ? You feel very thirsty. Get help right away if: ? You have symptoms of severe dehydration. ? You vomit every time you eat or drink. ? Your vomiting gets worse, does not go away, or includes blood or green matter (bile). ? You are getting treatment but symptoms are getting worse. ? You have a fever. ? You have a severe headache. ? You have: ? Diarrhea that gets worse or does not go away. ? Blood in your stool. This may cause stool to look black and tarry. ? Not urinating, or urinating only a small amount of very dark urine, within 6?8 hours. ? You have trouble breathing. These symptoms may be an emergency. Get help right away. ? Do not wait to see if the symptoms will go away. ? Do not drive yourself to the hospital. Call 911. This information is not intended to replace advice given to you by your health care provider. Make sure you discuss any questions you have with your health care provider. Document Revised: 04/19/2023 Document Reviewed: 04/19/2023 Elsevier Patient Education ? 2023 [employer] ED CLINICAL SUMMARY Observed: 07/09/2024 2:17 PM Status: F Source: [facility] ED Clinical Summary [address] [address] ED Clinical Summary Person Information Name: RACHEL ZUÑIGA/[place] Age: 44 Years : 1980 Sex: Female Language: Irish PCP: AJIT PETTIT CNP Marital Status: Phone: [phone] Visit Id: Visit Reason: Syncope/Near syncope; Body [...] 07/09/2024 13:32:08 Discharge Request 07/09/2024 14:17:25 ADDRESS: [address] [place] [phone] PHYS DOC NOTES: MEDICAL INFORMATION: Prescriptions Given: [...] up: With: Address: When: AJIT PETTIT [address] [place] [address] [employer] ([employer] In 3 days 07/12/2024 Comments: Call the [...] or worsening symptoms. DIAGNOSIS: Malaise; Viral syndrome TROPONIN 1 HR. Collected: 1:47 PM Status: F Source: [facility] TYPE CODE TESTS RESULT OUT OF RANGE REFERENCE UNITS LAB 60740679(INC) Troponin HS 3.60 Low 10.10-27.10 pg/mL Result Comment: The 95% CI ( Confidence Interval) PPV (Positive Predictive Value) for myocardial infarction in females is 38 pg/mL, in males 51 pg/mL. The results should be used in conjunction with clinical conditions of myocardial infarction. (Access High Sensitivity Troponin I Instructions For Use, Gustavo Patti, May 2018) Performed By: #### [id number] #### [facility] [address] [place] [address] XR CHEST SINGLE VIEW Observed: 1:22 PM Status: F Source: [facility] Exam Date/Time: 07/09/2024 13:32 EDT Reason for [...] ELIZABETH Technologist: WALDEMAR Technical Comments Radiation Dose: Kar in mGy = na DAP = na EGFR Collected: 12:50 PM Status: F Source: [facility] TYPE CODE TESTS RESULT OUT OF RANGE REFERENCE UNITS LAB 29653192(LOINC) eGFR 117 Normal >=59 mL/min/1 .7 3 m2 Performed By: #### [id number] #### [facility] [address] [place] [address] TROPONIN 0 HR. Collected: 12:50 PM Status: F Source: [facility] TYPE CODE TESTS RESULT OUT OF RANGE REFERENCE UNITS LAB 78828249(LOINC) Troponin HS 3.00 Low 10.10-27.10 pg/mL Result Comment: The 95% CI ( Confidence Interval) PPV (Positive Predictive Value) for myocardial infarction in females is 38 pg/mL, in males 51 pg/mL. The results should be used in conjunction with clinical conditions of myocardial infarction. (Access High Sensitivity Troponin I Instructions For Use, Gustavo [place], May 2018) Performed By: #### [id number] #### [facility] [address] [place] [address] PT & PTT Collected: 12:50 PM Status: F Source: [facility] TYPE CODE TESTS RESULT OUT OF RANGE REFERENCE UNITS LAB 5902-2(LOINC) COAGULATION TISSUE FACTOR INDUCED:TIME:P T:PPP:QN:COAG 9.5 Normal 9.4-12.5 second(s ) Result Comment: 15 days - 4 weeks 1 - [...] the same coagulation reagent and instrumentation [place] [facility] [place] Currently there are no coagulation studies available worldwide for children to 14 days, and no normal ranges. LAB 69689-1([facility]) COAGULATION SURFACE INDUCED:TIME:P T:PPP:QN:COAG 28.9 Normal 25.1-36.5 second(s ) Result Comment: Parameter 15 days - 4 weeks 1 - [...] the same coagulation reagent and instrumentation [place] [facility] [place] Currently there are no coagulation studies available worldwide for children to 14 days, and no normal ranges. Heparin therapeutic range (represented by Anti-Factor Xa activity of 0.2 - 0.4 U/mL) corresponds to PTT of 56.6 - 109.0 sec. LAB 6301-6([facility]) COAGULATION TISSUE FACTOR INDUCED.INR:RE LTIME:PT:PPP:Q N:COAG 0.85 Unknown Result Comment: INR results are specifically intended to assess patients stabilized on long-term Anticoagulation therapy suggested INR?s ?Less Intensive Anticoagulation? 2.0 ? 3.0 Conventional Range 3.0 ? 4.5 Performed By: #### [id number] #### [facility] [address] [place] [address] CBC W/ AUTO DIFF Collected: 07/09/2024 12:50 PM Stat us: F Source: [facility] TYPE CODE TESTS RESULT OUT OF RANGE REFERENCE UNITS LAB 52437-4([facility]) LEUKOCYTES^^MARY ANN ECTED FOR NUCLEATED ERYTHROCYTES:NCN C:PT:BLD:QN:AUTO MATED COUNT 14.9 High 4.0-11.0 E9/L Result Comment: Peripheral s mear review performed. LAB 789-8([facility]) ERYTHROCYTES:NCN C:PT:BLD:QN:AUTO MATED COUNT 4.4 Normal 4.3-5.9 E12/L LAB 718-7([facility]) HEMOGLOBIN:MCNC: PT:BLD:QN: 13.4 Normal 12.0-16.0 gm/dL LAB 4544-3([facility]) HEMATOCRIT:VFR:P T:BLD:QN:AUTOMAT ED COUNT 38.9 Normal 34.0-46.0 % LAB 788-0([facility]) ERYTHROCYTE DISTRIBUTION WIDTH:RATIO:PT:R BC:QN:AUTOMATED COUNT 13.2 Normal 10.9-14.2 % LAB 785-6([facility]) ERYTHROCYTE MEAN CORPUSCULAR HEMOGLOBIN:ENTMA SS:PT:RBC:QN:AUT OMATED COUNT 30.4 Normal 27.0-34.0 pg LAB 786-4([facility]) ERYTHROCYTE MEAN CORPUSCULAR HEMOGLOBIN CONCENTRATION:MC NC:PT:RBC:QN:AUT OMATED COUNT 34.5 Normal 31.4-36.0 gm/dL LAB 787-2([facility]) ERYTHROCYTE MEAN CORPUSCULAR VOLUME:ENTVOL:PT :RBC:QN:AUTOMATE D COUNT 88.1 Normal 80.0-100.0 fL LAB 09324-9([facility]) PLATELET MEAN VOLUME:ENTVOL:PT :BLD:QN:AUTOMATE D COUNT 8.3 Normal 6.4-10.8 fL LAB 777-3([facility]) PLATELETS:NCNC:P T:BLD:QN:AUTOMAT ED COUNT 319.0 Normal 150.0-500.0 E9/L LAB 81595-2([facility]) NEUTROPHILS/100 LEUKOCYTES:NFR:P T:BLD:QN: 69.1 Normal 36.0-75.0 % LAB 731-0([facility]) LYMPHOCYTES:NCNC :PT:BLD:QN:AUTOM ATED COUNT 24.7 Normal 14.0-50.0 % LAB 742-7([facility]) MONOCYTES:NCNC:P T:BLD:QN:AUTOMAT ED COUNT 0.7 Normal 0.2-1.0 E9/L LAB 713-8([facility]) EOSINOPHILS/100 LEUKOCYTES:NFR:P T:BLD:QN:AUTOMAT ED COUNT 0.8 Normal 0.0-8.0 % LAB 704-7([facility]) BASOPHILS:NCNC:P T:BLD:QN:AUTOMAT ED COUNT 1.0 Normal 0.0-2.0 % LAB 751-8([facility]) NEUTROPHILS:NCNC :PT:BLD:QN:AUTOM ATED COUNT 10.3 High 2.0-7.5 E9/L LAB 79371-4([facility]) LYMPHOCYTES:NCNC :PT:BLD:QN: 3.7 Normal 1.0-4.0 E9/L LAB 83220-8([facility]) EOSINOPHILS:NCNC :PT:BLD:QN: 0.1 Normal 0.0-0.5 E9/L LAB 53509-6([facility]) BASOPHILS/LEUKOC YTES:NFR.DF:PT:B LD:QN:AUTOMATED COUNT 0.2 Normal 0.0-0.2 E9/L Performed By: #### [id number] # ### [facility] [address] [place] [address] [facility] Collected: 4 12:50 PM Status: F Source: [facility] TYPE CODE TESTS RESULT OUT OF RANGE REFERENCE UNITS LAB 2345-7([facility]) GLUCOSE:MCNC :PT:SER/PLAS :QN: 149 Normal 55-199 mg/dL LAB 3094-0([facility]) UREA NITROGEN:MCN C:PT:SER/JAIME S:QN: 9 Normal 5-21 mg/dL LAB 2160-0([facility]) CREATININE:M CNC:PT:SER/P LAS:QN: 0.5 Normal 0.5-1.3 mg/dL LAB 3097-3([facility]) UREA NITROGEN/CRE ATININE:MRTO :PT:SER/PLAS :QN: 18 Normal 10-20 No Units LAB 22004-4([facility]) CALCIUM:MCNC :PT:SER/PLAS :QN: 8.9 Normal 8.9-11.1 mg/dL LAB 2951-2([facility]) SODIUM:SCNC: PT:SER/PLAS: QN: 131 Low 135-145 mmol/L LAB 2823-3([facility]) POTASSIUM:SC NC:PT:SER/PL :QN: 4.1 Normal 3.5-5.3 mmol/L LAB 2075-0([facility]) CHLORIDE:SCN C:PT:SER/JAIME S:QN: 99 Low 101-111 mmol/L LAB 8-9([facility]) CARBON DIOXIDE:SCNC :PT:SER/PLAS :QN: 24 Normal 21-31 mmol/L LAB 85295-2([facility]) ANION GAP:SCNC:PT: SER/PLAS:QN: 12 Normal 6-16 mEq/L Performed By: #### [id number] # ### [facility] [address] [place] [address] HEP FUNC PANEL Collected: 4 12:50 PM Status: F Source: [facility] TYPE CODE TESTS RESULT OUT OF RANGE REFERENCE UNITS LAB 1744-2([facility]) ALANINE AMINOTRANSFERA SE:CCNC:PT:SER /PLAS:QN:NO ADDITION OF P-5'-P 10 Normal 6-46 Int._Unit /L LAB 1920-8([facility]) ASPARTATE AMINOTRANSFERA SE:CCNC:PT:SER /PLAS:QN: 11 Normal 5-43 Int._Unit /L LAB 1751-7([facility]) ALBUMIN:MCNC:P T:SER/PLAS:QN: 4.0 Normal 3.3-5.0 gm/dL LAB 27469-5([facility]) GLOBULIN:MCNC: PT:SER:QN:CALC ULATED 3.2 Normal 1.4-4.0 gm/dL LAB 56119-2([facility]) ALBUMIN/GLOBUL IN:MCRTO:PT:SE R:QN: 1.3 Normal 1.1-2.2 LAB 6768-6([facility]) ALKALINE PHOSPHATASE:CC NC:PT:SER/PLAS :QN: 65 Normal 21-98 Int._Unit /L LAB 1968-7([facility]) BILIRUBIN.GLUC URONIDATED+MIGUELINA IRUBIN.ALBUMIN BOUND:MCNC:PT: SER/PLAS:QN: 0.0 Normal 0.0-0.4 mg/dL LAB 45533-8([facility]) BILIRUBIN.NON- GLUCURONIDATED :MSCNC:PT:SER/ PLAS:QN: 0.2 Normal 0.1-0.9 mg/dL LAB 1974-11([facility]) BILIRUBIN:MCNC :PT:SER/PLAS:Q N: 0.2 Normal 0.0-1.1 mg/dL LAB 2884-([facility]) PROTEIN:MCNC:P T:SER/PLAS:QN: 7.2 Normal 6.0-7.8 gm/dL Performed By: #### [id number] # ### [facility] [address] [place] [address] B HCG QUAL Collected: 12:50 PM Status: F Source: [facility] TYPE CODE TESTS RESULT OUT OF RANGE REFERENCE UNITS LAB 2109-([facility]) CHORIOGONADOT ROPIN.BETA SUBUNIT ( TEST):PRTHR:P T:SER/PLAS:OR D: NEGATIVE Normal Performed By: #### [id number] #### [facility] [address] [place] [address] XR CHEST 2V* Observed: 07/06/2024 8:09 PM Status: COMPLETED Source: [facility] [place] [address] XRay Report Signed Patient: Rachel Zuñiga MR#: [id number] 1 : 1980 Acct:[id number] Age/Sex: 44 / F ADM Date: 07/06/24 [...] Praveen Welch M.D.07/06/2024 8:10 PM Dictation Location: [facility]- Transcribed By: [facility] 07/06/242009 Dictated By: Praveen Welch DO 07/06/242008 Signed By: <Electronically signed by Praveen Welch DO in OV> 07/06/242009 CT ABDOMEN PELVIS W CON Observed: 2023 7:11 PM Status: COMPLETED Source: [facility] [address] CT Scan Report Signed Patient: Rachel Zuñiga MR#: [id number] 1 : 1980 Acct:[id number] Age/Sex: 44 / F ADM Date: 07/06/24 [...] Praveen Welch M.D.07/06/2024 7:13 PM Dictation Location: [place] [address] Transcribed By: [facility] 07/06/241912 Dictated By: Praveen Welch DO 07/06/241910 Signed By: <Electronically signed by Praveen Welch DO in OV> 07/06/241912 COMPLETE BLOOD COUNT AUTO DIFF Collected: 07/06/2024 5:29 PM Status: F Source: F [facility] TYPE CODE TESTS RESULT OUT OF RANGE REFERENCE UNITS LAB WBC White Blood Count 22.9 High 3.8-11.6 10*3/uL LAB UNWBC Uncorrected WBC 22.9 High 3.8-11.6 10*3/uL LAB RBC Red Blood Count 4.93 Normal 3.60-5.00 LAB HGB Hemoglobin 15.0 Normal 11.8-15.4 g/dL LAB HCT Hematocrit 43.5 Normal 34.0-46.4 % LAB MCV Mean Corpuscular Volume 88.3 Normal 80-100 fL LAB MCH Mean Corpuscular Hemoglobin 30.5 Normal 24.7-34.3 pg LAB MCHC Mean Corpuscular HGB Conc 34.5 Normal 32.0-35.0 g/dL LAB RDW Red Cell Distribution Width 13.2 Normal 11.9-15.3 % LAB PLT Platelet Count 387 Normal 150-450 10*3/uL LAB MPV Mean Platelet Volume 7.2 Normal 6.3-10.7 fL LAB MDW Monocyte Distribution Width 18.69 Normal 0.00-20.00 % LAB NE% Neutrophils % (Auto) 66.1 . % LAB LY% Lymphocytes % (Auto) 25.3 . % LAB MO% Monocytes % (Auto) 6.9 . % LAB EO% Eosinophils % (Auto) 0.6 . % LAB BA% Basophils % (Auto) 1.1 . % LAB NRBC% NRBC% 0.0 Normal 0-0.5 /100{WBC } LAB NE# Neutrophils # (Auto) 15.1 High 1.8-7.7 10*3/uL LAB LY# Lymphocytes # (Auto) 5.8 High 1.00-4.8 10*3/uL LAB MO# Monocytes # (Auto) 1.6 High 0.0-0.8 10*3/uL LAB EO# Eosinophils # (Auto) 0.1 Normal 0.0-0.45 10*3/uL LAB BA# Basophils # (Auto) 0.3 High 0.0-0.2 10*3/uL Result Comment: PERFORMED BY : [facility] [address] [place] [address] PATHOLOGIST CORRECTION OFFICER RIDGE HUERTA M.D. Performed By: #### CBC, CMP, LIPASE #### [facility] [address] COMPREHENSIVE METABOLIC PANEL Collected: 07/06/2024 5 :29 PM Status: F Source: [facility] TYPE CODE TESTS RESULT OUT OF RANGE REFERENCE UNITS LAB GLU Glucose 142 High 70-100 mg/dL Result Comment: Random Gluco se Reference Range is dependent on time and content of last meal. Glucose of more than 200 mg/dL in a nonstressed, ambulatory subject supports the diagnosis of Diabetes Mellitus. ADA recommended reference range LAB BUN Blood Urea Nitrogen 8 Normal 7-25 mg/d L LAB CREATT Creatinine 0.59 Low 0.60-1.20 mg/dL LAB GFReNR Estimated GFR > 60.0 LAB NA Sodium 132 Low 136-145 mmol/L LAB K Potassium 3.9 Normal 3.5-5.1 mmol/L LAB CL Chloride 97 Low 98-107 mmol/L LAB CO2 Carbon Dioxide 25.2 Normal 21.0-31.0 mmol/L LAB GAP Anion Gap 13.7 Normal 6.0-15.0 LAB CA Calcium 9.2 Normal 8.6-10.3 mg/dL LAB TP Total Protein 7.2 Normal 6.4-8.9 g/dL LAB ALB Albumin Level 4.2 Normal 3.5-5.7 g/dL LAB GLOB Globulin 3.0 g/dL LAB AGRATIO Albumin/Globulin Ratio 1.4 LAB BILIT Bilirubin,Total 0.3 Normal 0.3-1.0 mg/dL LAB AST Aspartate Amino Transferase 10 Low 13-39 U/L LAB ALT Alanine Aminotransferase 9 Normal 7-52 U/L LAB ALP Alkaline Phosphatase 59 Normal 34-104 U/L LAB CRCLPHA Creatinine Clr C [facility] Pharmacy 108.35 Result Comment: PERFORMED BY : [place] [address] PATHOLOGIST CORRECTION OFFICER RIDGE HUERTA M.D. Performed By: #### CBC, CMP, LIPASE #### [facility] [address] [place] [address] LIPASE Collected: 5:29 PM Status: F Source: [facility] TYPE CODE TESTS RESULT OUT OF RANGE REFERENCE UNITS LAB LIPASE Lipase 48.0 Normal 11.0-82.0 U/L Result Comment: PERFORMED BY : [place] [address] PATHOLOGIST CORRECTION OFFICER RIDGE HUERTA M.D. Performed By: #### CBC, CMP, LIPASE #### [place] [id number] [facility] ECG 12 LEAD ECG Observed: 07/06/2024 4:13 PM Status: COMPLETED Source: [facility] [place] [address] Electrocardiograph Report Signed Patient: Rachel Zuñiga MR#: [id number] 1 : 1980 Acct:[id number] Age/Sex: 44 / F ADM Date: 07/06/24 [...] MUS Signed By Edna Munoz MD 07/06/241935 COMPLETE BLOOD COUNT AUTO DIFF Collected: 07/04/2024 1:32 PM Status: F Source: [facility] TYPE CODE TESTS RESULT OUT OF RANGE REFERENCE UNITS LAB WBC White Blood Count 19.3 High 3.8-11.6 10*3/uL LAB UNWBC Uncorrected WBC 19.3 High 3.8-11.6 10*3/uL LAB RBC Red Blood Count 4.55 Normal 3.60-5.00 LAB HGB Hemoglobin 13.7 Normal 11.8-15.4 g/dL LAB HCT Hematocrit 40.0 Normal 34.0-46.4 % LAB MCV Mean Corpuscular Volume 87.9 Normal 80-100 fL LAB MCH Mean Corpuscular Hemoglobin 30.0 Normal 24.7-34.3 pg LAB MCHC Mean Corpuscular HGB Conc 34.2 Normal 32.0-35.0 g/dL LAB RDW Red Cell Distribution Width 13.0 Normal 11.9-15.3 % LAB PLT Platelet Count 350 Normal 150-450 10*3/uL LAB MPV Mean Platelet Volume 7.0 Normal 6.3-10.7 fL LAB NE% Neutrophils % (Auto) 66.4 . % LAB LY% Lymphocytes % (Auto) 24.6 . % LAB MO% Monocytes % (Auto) 7.9 . % LAB EO% Eosinophils % (Auto) 0.5 . % LAB BA% Basophils % (Auto) 0.6 . % LAB NRBC% NRBC% 0.1 Normal 0-0.5 /100{WBC} LAB NE# Neutrophils # (Auto) 12.8 High 1.8-7.7 10*3/uL LAB LY# Lymphocytes # (Auto) 4.7 Normal 1.00-4.8 10*3/uL LAB MO# Monocytes # (Auto) 1.5 High 0.0-0.8 10*3/uL LAB EO# Eosinophils # (Auto) 0.1 Normal 0.0-0.45 10*3/uL LAB BA# Basophils # (Auto) 0.1 Normal 0.0-0.2 10*3/uL Result Comment: PERFORMED BY : [facility] [place] [address] PATHOLOGIST CORRECTION OFFICER RIDGE HUERTA M.D. Performed By: #### CBC, CMP, LIPID #### [facility] [address] [place] [address] [facility] COMPREHENSIVE METABOLIC PANEL Collected: 07/04/2024 1 :32 PM Status: F Source: [facility] TYPE CODE TESTS RESULT OUT OF RANGE REFERENCE UNITS LAB GLU Glucose 164 High 70-100 mg/dL Result Comment: Random Gluc ose Reference Range is dependent on time and content of last meal. Glucose of more than 200 mg/dL in a nonstressed, ambulatory subject supports the diagnosis of Diabetes Mellitus. ADA recommended reference range LAB BUN Blood Urea Nitrogen 6 Low 7-25 mg/d L LAB CREATT Creatinine 0.61 Normal 0.60-1.20 mg/dL LAB GFReNR Estimated GFR > 60.0 LAB NA Sodium 130 Low 136-145 mmol/L LAB K Potassium 4.6 Normal 3.5-5.1 mmol/L LAB CL Chloride 92 Low 98-107 mmol/L LAB CO2 Carbon Dioxide 29.2 Normal 21.0-31.0 mmol/L LAB GAP Anion Gap 13.4 Normal 6.0-15.0 LAB CA Calcium 8.9 Normal 8.6-10.3 mg/dL LAB TP Total Protein 5.9 Low 6.4-8.9 g/dL LAB ALB Albumin Level 3.8 Normal 3.5-5.7 g/dL LAB GLOB Globulin 2.1 g/dL LAB AGRATIO Albumin/Globulin Ratio 1.8 LAB BILIT Bilirubin,Total 0.3 Normal 0.3-1.0 mg/dL LAB AST Aspartate Amino Transferase 8 Low 13-39 U/L LAB ALT Alanine Aminotransferase 7 Normal 7-52 U/L LAB ALP Alkaline Phosphatase 54 Normal 34-104 U/L Performed By: #### CBC, CMP, LIPID #### [facility] [address] [place] [address] [facility] LIPID PANEL Collected: 07/04/2024 1:32 PM Status: F Source: [facility] TYPE CODE TESTS RESULT OUT OF RANGE REFERENCE UNITS LAB CHOL Cholesterol 185 Normal 140-200 mg/dL Result Comment: Chol less th an 200 mg/dl low risk Chol 201-239 mg/dl borderline risk Chol 240 mg/dl and greater high risk LAB HDL HDL Cholesterol 48 Normal 23-92 mg/dL Result Comment: HDL CHOL ATP -III CLASSIFICATION Cardiovascular Risk HDL > or equal to 60 mg/dL LOW HDL < 40 mg/dL HIGH LAB TRIG W REF Triglyceride w/Reflex 393 High 0-149 mg/dL Result Comment: TRIG ATP III CLASSIFICATION TRIG less than 150 mg/dL Normal TRIG 150-199 mg/dL Borderline high TRIG 200-500 mg/dL High TRIG greater than 500 mg/dL Very high Standard traceable to the Center for Disease Conrtrol and Prevention (CDC) test method. LAB LDLC LDL Cholesterol,Calc ulated 58 Normal 0-100 mg/dL Result Comment: LDL ATP III CLASSIFICATION LDL less than 100 mg/dL Optimal LDL 100-129 mg/dL Near or above optimal LDL 130-159 mg/dL Borderline high LDL 160-189 mg/dL High LDL greater than 189 mg/dL Very high LAB VLDL VLDL CHOLESTEROL 78 mg/dL LAB CHLHDL Chol/HDL Ratio 3.9 <5.0 Result Comment: PERFORMED BY : [place] [address] PATHOLOGIST CORRECTION OFFICER RIDGE HUERTA M.D. Performed By: #### CBC, CMP, LIPID #### [facility] [address] [place] [address] MR LUMBAR SPINE WO CON Observed: 024 4:43 PM Status: COMPLETED Source: [facility] [place] [address] MRI Report Signed Patient: Rachel Zuñiag MR#: [id number] 1 : 1980 Acct:[id number] Age/Sex: 44 / F ADM Date: 06/08/24 Loc: [facility] Room: Type: [facility] Attending Dr: Ajit DEJESUS Copies to: OLEG [...] Dar Messina M.D.06/08/2024 4:52 PM Dictation Location: [place] [address] Transcribed By: [facility] 06/08/24 1652 Dictated By: Dar Messina II, MD 06/08/24 1643 Signed By: <Electronically signed by Dar Messina II, MD in OV> 06/08/24 1652 COMPLETE BLOOD COUNT AUTO DIFF Collected: 05/16/2024 5:17 PM Status: F Source: F [facility] Order Comment: Reason for Ex am Type 2 diabetes mellitus without complication, without long- TYPE CODE TESTS RESULT OUT OF RANGE REFERENCE UNITS LAB WBC White Blood Count 15.0 High 3.8-11.6 10*3/uL LAB UNWBC Uncorrected WBC 15.0 High 3.8-11.6 10*3/uL LAB RBC Red Blood Count 4.64 Normal 3.60-5.00 LAB HGB Hemoglobin 14.1 Normal 11.8-15.4 g/dL LAB HCT Hematocrit 41.1 Normal 34.0-46.4 % LAB MCV Mean Corpuscular Volume 88.4 Normal 80-100 fL LAB MCH Mean Corpuscular Hemoglobin 30.3 Normal 24.7-34.3 pg LAB MCHC Mean Corpuscular HGB Conc 34.3 Normal 32.0-35.0 g/dL LAB RDW Red Cell Distribution Width 13.3 Normal 11.9-15.3 % LAB PLT Platelet Count 400 Normal 150-450 10*3/uL LAB MPV Mean Platelet Volume 7.9 Normal 6.3-10.7 fL LAB NE% Neutrophils % (Auto) 61.6 . % LAB LY% Lymphocytes % (Auto) 33.0 . % LAB MO% Monocytes % (Auto) 4.4 . % LAB EO% Eosinophils % (Auto) 0.4 . % LAB BA% Basophils % (Auto) 0.6 . % LAB NRBC% NRBC% 0.1 Normal 0-0.5 /100{WBC} LAB NE# Neutrophils # (Auto) 9.3 High 1.8-7.7 10*3/uL LAB LY# Lymphocytes # (Auto) 5.0 High 1.00-4.8 10*3/uL LAB MO# Monocytes # (Auto) 0.7 Normal 0.0-0.8 10*3/uL LAB EO# Eosinophils # (Auto) 0.1 Normal 0.0-0.45 10*3/uL LAB BA# Basophils # (Auto) 0.1 Normal 0.0-0.2 10*3/uL Result Comment: PERFORMED BY : [facility] [place] [address] PATHOLOGIST [employer] RIDGE HUERTA M.D. Performed By: #### TSH3 wRFL X, CBC, CMP, [id number], LIPID, A1C WT eA #### [facility] [address] [id number] [facility] COMPREHENSIVE METABOLIC PANEL Collected: 05/16/2024 5 :17 PM Status: F Source: [facility] Order Comment: Reason for Ex am Type 2 diabetes mellitus without complication, without long- Reason for Exam Vitamin D deficiency TYPE CODE TESTS RESULT OUT OF RANGE REFERENCE UNITS LAB GLU Glucose 74 Normal 70-100 mg/dL Result Comment: Random Gluco se Reference Range is dependent on time and content of last meal. Glucose of more than 200 mg/dL in a nonstressed, ambulatory subject supports the diagnosis of Diabetes Mellitus. ADA recommended reference range LAB BUN Blood Urea Nitrogen 5 Low 7-25 mg/d L LAB CREATT Creatinine 0.47 Low 0.60-1.20 mg/dL LAB GFReNR Estimated GFR > 60.0 LAB NA Sodium 131 Low 136-145 mmol/L LAB K Potassium 4.1 Normal 3.5-5.1 mmol/L LAB CL Chloride 96 Low 98-107 mmol/L LAB CO2 Carbon Dioxide 26.0 Normal 21.0-31.0 mmol/L LAB GAP Anion Gap 13.1 Normal 6.0-15.0 LAB CA Calcium 9.0 Normal 8.6-10.3 mg/dL LAB TP Total Protein 6.7 Normal 6.4-8.9 g/dL LAB ALB Albumin Level 4.2 Normal 3.5-5.7 g/dL LAB GLOB Globulin 2.5 g/dL LAB AGRATIO Albumin/Globulin Ratio 1.7 LAB BILIT Bilirubin,Total 0.3 Normal 0.3-1.0 mg/dL LAB AST Aspartate Amino Transferase 11 Low 13-39 U/L LAB ALT Alanine Aminotransferase 11 Normal 7-52 U/L LAB ALP Alkaline Phosphatase 62 Normal 34-104 U/L Performed By: #### TSH3 wRFL X, CBC, CMP, [id number], LIPID, A1C WTH eA #### [facility] [address] [id number] [facility] LIPID PANEL Collected: 05/16/2024 5:17 PM Status: F Source: [facility] Order Comment: Reason for Ex am Type 2 diabetes mellitus without complication, without long- Reason for Exam Vitamin D deficiency TYPE CODE TESTS RESULT OUT OF RANGE REFERENCE UNITS LAB CHOL Cholesterol 237 High 140-200 mg/dL Result Comment: Chol less th an 200 mg/dl low risk Chol 201-239 mg/dl borderline risk Chol 240 mg/dl and greater high risk LAB HDL HDL Cholesterol 43 Normal 23-92 mg/dL Result Comment: HDL CHOL ATP -III CLASSIFICATION Cardiovascular Risk HDL > or equal to 60 mg/dL LOW HDL < 40 mg/dL HIGH LAB TRIG W REF Triglyceride w/Reflex 321 High 0-149 mg/dL Result Comment: TRIG ATP III CLASSIFICATION TRIG less than 150 mg/dL Normal TRIG 150-199 mg/dL Borderline high TRIG 200-500 mg/dL High TRIG greater than 500 mg/dL Very high Standard traceable to the Center for Disease Conrtrol and Prevention (CDC) test method. LAB LDLC LDL Cholesterol,Calc ulated 130 High 0-100 mg/dL Result Comment: LDL ATP III CLASSIFICATION LDL less than 100 mg/dL Optimal LDL 100-129 mg/dL Near or above optimal LDL 130-159 mg/dL Borderline high LDL 160-189 mg/dL High LDL greater than 189 mg/dL Very high LAB VLDL VLDL CHOLESTEROL 64 mg/dL LAB CHLHDL Chol/HDL Ratio 5.5 <5.0 Performed By: #### TSH3 wRFL X, CBC, CMP, [id number], LIPID, A1C WTH eA #### [facility] [address] [id number] [facility] THYROID STIM HORMONE W/RFLX Collected: 05/16/2024 5:17 PM Status: F Source: [facility] Order Comment: Reason for Ex am Type 2 diabetes mellitus without complication, without long- Reason for Exam Vitamin D deficiency TYPE CODE TESTS RESULT OUT OF RANGE REFERENCE UNITS LAB TSH3 wRFLX Thyroid Stim Hormone w/Rflx 1.69 Normal 0.45-5.33 u[iU]/mL Performed By: #### TSH3 wRFL X, CBC, CMP, [id number], LIPID, A1C WTH eA #### [facility] [address] [id number] [facility] VITAMIN D 25 HYDROXY TOTAL Collected: 0 05/16/2024 5:17 PM Status: F Source: [facility] Order Comment: Reason for Ex am Type 2 diabetes mellitus without complication, without long- Reason for Exam Vitamin D deficiency TYPE CODE TESTS RESULT OUT OF RANGE REFERENCE UNITS LAB [id number] Vitamin D 25 Hydroxy Total 46.2 Normal 30-100 ng/mL Result Comment: VITAMIN D ST ATUS 25(OH)VITAMIN D RANGE (ng/mL) Deficient <20 Insufficient 20 to <30 Sufficient 30 to 100 Reference: Jovanni MF,Dominique NC, Gillian NINA, et al. Evaluation,treatment, and prevention of vitamin D deficiency; an Endocrine Society clinical practice guideline. JCEM. 2010; 96(7):1911-30. PERFORMED BY: [address] [address] PATHOLOGIST CORRECTION OFFICER RIDGE HUERTA M.D. Performed By: #### TSH3 wRFL X, CBC, CMP, [id number], LIPID, A1C WT eA #### [address] [address] [facility] A1C WITH ESTIMATED AVERAGE GLU Collected: 05/16/2024 5:17 PM Status: F Source: [facility] Order Comment: Reason for Ex am Type 2 diabetes mellitus without complication, without long- TYPE CODE TESTS RESULT OUT OF RANGE REFERENCE UNITS LAB .A1C Hemoglobin A1C 6.4 High 4.3-5.6 % Result Comment: Increased ri sk for diabetes: 5.7 - 6.4 diabetes: >6.4 glycemic control for adults with diabetes: <7.0 LAB eAG Estimated Average Glucose 137 mg/dL Result Comment: PERFORMED BY : [address] [address] PATHOLOGIST CORRECTION OFFICER RIDGE HUERTA M.D. Performed By: #### TSH3 wRFL X, CBC, CMP, [id number], LIPID, A1C WT eA #### [facility] [address] [place] [address] [place] GLUCOSE POCT GLUCOMETERS Collected: 03/16/2024 6:59 A M Status: F Source: [facility] TYPE CODE TESTS RESULT OUT OF RANGE REFERENCE UNITS LAB GLUPOC Glucose Poc Glucometers 140 mg/dL Result Comment: Random Gluco se Reference Range is dependent on time and content of last meal. Glucose of more than 200 mg/dL in a nonstressed, ambulatory subject supports the diagnosis of Diabetes Mellitus. PERFORMED BY: [facility] [place] [address] PATHOLOGIST CORRECTION OFFICER RIDGE HUERTA M.D. Performed By: #### GLULS ### # Point of Care testing , L Observed: 03/16/2024 12:00 AM Status: F Source: [facility] Specimen: [id number] Received: 03/16/24 Status: BOAmeya Damon Num: [id number] Spec Type: Surgical Subm Dr: Abi Sunshine DO Tissues: A Colon Biopsy (RT RANDOM COLON BX) B Colon Biopsy (RANDOM LT) C Colon Biopsy (TRANSV POLYPS) D Colon Biopsy (RECTAL POLYP) Procedures: HE/8, Gross/Micro L4/4 Age/ Patient Sex Location Account Attending Physician Rachel Zuñiga 44/F [id number] Abi Sunshine DO SPEC NUM: [id number] RECD: 03/16/24 STATUS: BLUE JOSE NUM: [id number] JOSEPH: 03/16/24 DR: Abi Sunshine DO ENTERED: 03/16/[address] [facility] [address]: SPEC TYPE: Surgical DEPT: [...] biopsy: -Serrated hyperplastic polyp in both fragments ----- ------- Specimen: [id number] Received: 03/16/24 Status: BLUE Jose Num: [id number] Spec Type: Surgical Subm Dr: Abi Sunshine DO Tissues: A Colon Biopsy (RT RANDOM COLON BX) B Colon Biopsy (RANDOM LT) C Colon Biopsy (TRANSV POLYPS) D Colon Biopsy (RECTAL POLYP) Procedures: HE/Dagoberto, Gross/Micro L4/4 ----- ------- Patient: Rachel Zuñiga [id number] (Continued) ----- ------- Specimen: [id number] Received: 03/16/24 (Continued) Signed (signature on file) Philomena Grimm MD 03/18/24 1111 ----- ------- Specimen: [id number] Received: 03/16/24 Status: BLUE Jose Num: [id number] Spec Type: Surgical Subm Dr: Abi Sunshine DO Tissues: A Colon Biopsy (RT RANDOM COLON BX) B Colon Biopsy (RANDOM LT) C Colon Biopsy (TRANSV POLYPS) D Colon Biopsy (RECTAL POLYP) Procedures: ÁNGEL/Dagoberto, Gross/Micro L4/4 ----- ------- Patient: Rachel Zuñiga Tyron [id number] (Continued) ----- ------- Specimen: [id number] Received: 03/16/24-1005 (Continued) Clinical Information Screening, diarrhea. Rule out [...] cm, entirely submitted in D1. CPT Codes 89482X5 ----- ------- ----- ------- Specimen: [id number] Received: 03/16/24 Status: BLUE Jose Num: [id number] Spec Type: Surgical Subm Dr: Abi Sunshine DO Tissues: A Colon Biopsy (RT RANDOM COLON BX) B Colon Biopsy (RANDOM LT) C Colon Biopsy (TRANSV POLYPS) D Colon Biopsy (RECTAL POLYP) Procedures: /Dagoberto, Gross/Micro L4/4 ----- ------- Patient: Rachel Zuñiga [id number] (Continued) ----- ------- Signed (signature on file) Philomena Grimm MD 03/18/24 1111 XR LUMBAR SPINE AP/LAT/FLX/EXT Observed: 03/02/2024 2:44 PM Status: COMPLETED Source: [address] [place] [address] XRay Report Signed Patient: Rachel Zuñiga MR#: [id number] 1 : 1980 Acct:[id number] Age/Sex: 44 / F ADM Date: 03/02/24 Loc: XD Room: Type: [facility] Attending Dr: Kyler Miramontes MD [...] Yeboah Jr., D.OPanchito03/02/2024 2:52 PM Dictation Location: [address] [place] [address] Transcribed By: [facility] 03/02/24 1452 Dictated By: Andrés Yeboah Jr, DO 03/02/24 1444 Signed By: <Electronically signed by Andrés Yeboah Jr, DO in OV> 03/02/24 1452 ALLERGIES DATE TYPE / CODE NAME / CODE REACTION SEVERITY SOURCE 09/05/2024 Drug Allergy/4160 45947(SNOMED CT) Latex, Natural Rubber/S338971628(RX NORM) Hives Unknown [facility] 09/05/2024 Drug Allergy/4160 52148(SNOMED CT) nonoxynol 9/O382865342(RXNORM) Hives Unknown [facility] 09/05/2024 Drug Allergy/4160 04748(SNOMED CT) escitalopram/H929860 709(RXNORM) Difficulty Breathing Unknown [facility] /620616410 (SNOMED CT) amitriptyline VI3594-9 [facility] SUSANA446226314 (SNOMED CT) Latex 270474818 [facility] SUSANA506814533 (SNOMED CT) Bactrim [id number] [facility] /417969293 (SNOMED CT) Ultram seizures [facility] ENCOUNTERS ADMIT/DISCHARGE ACCOUNT NUMBER ADMITTING ENCOUNTER CLASS LOCATION SOURCE 02/21/2025 [id number] [place] [facility] 02/20/2025/02/21/20 [id number] [facility] 02/16/2025/02/17/20 [id number] Praveen Bermudez [facility] 02/15/2025/02/16/20 [id number] [facility]it [facility]ettit [facility] 02/12/2025/02/13/20 [id number] Anisa Chong [facility] 01/24/2025 [id number] Emergency FTMCBuilding: EDRoom: Ex-RBed: 01 [facility] 01/24/2025/01/25/20 [id number] Emergency FTBuilding: EDRoom: Ex-RBed: [facility] 01/18/2025/01/19/20 25 [id number] Praveen Rivero [facility] 09/06/2024/09/06/20 24 [id number] Ajit Pettit [facility] 09/05/2024/09/05/20 24 [id number] Abi Sunshine [facility] 07/24/2024/07/24/20 24 [id number] Ajit Pettit [facility] 07/09/2024 Emergency FTMCBuilding: EDRoom: ED-10Bed: CD:[id number] [facility] 07/09/2024 Emergency FTMCBuilding: EDRoom: ED-10Bed: CD:[id number] [facility] 07/09/2024/07/09/20 24 Emergency FTMCBuilding: EDRoom: ED-10Bed: CD:[id number] [facility] 07/06/2024/07/06/20 24 [id number] [facility] 07/04/2024/07/04/20 24 [id number] Ajit Pettit [facility] 06/08/2024/06/08/20 24 [id number] Ajit Pettit [facility] 05/16/2024/05/16/20 24 [id number] Ajit Pettit [facility] 03/16/2024/03/16/20 24 [id number] Abi Sunshine [facility] 03/02/2024/03/02/20 24 [id number] Kyler [facility]amontes [facility] 03/01/2024/03/01/20 24 [id number] Kyler Miramontes [facility] PAYERS ENCOUNTER GUARANTOR PAYER SUBSCRIBER SOURCE 02/20/2025 [place] [address]Esa: () Primary Insurance:Caresource MedicaidPolicy Number: [id number] Date:0723-95-66Cvj[address] [place] [address]QQ: Rachel SimDakotaB: [id number] [place] [address]Vnd: () [facility] 02/20/2025 Secondary Insurance:Self PayPolicy Number: Effective Date:2025-02-20 [facility] 02/16/2025 Rachel Ackerman [address] [place] [address]Zbm: (HP) Primary Insurance:Self PayPolicy Number: Effective Date:2025-02-16 [facility] 02/15/2025 Rachel Ackerman Zpirq[address] [place] [address]Mdm: () Primary Insurance:Caresource MedicaidPolicy Number: [id number] Date:3091-70-33Ehs[address] [address]EQ: Rachel SimDakotaB: [id number] [place] [address]Wvy: () [facility] 02/15/2025 Secondary Insurance:Self PayPolicy Number: Effective Date:2025-02-13 [facility] 02/12/2025 Rachel Tyron ZuñigaCjpof[address] [place] [address]Yfi: () Primary Insurance:Self PayPolicy Number: Effective Date:2025-02-12 [facility] 01/24/2025 RACHEL RUTLEDGE: [facility] STTel: ~~[phone] (HP) Primary Insurance:CARESOURCEPo licy Number: [id number] Date:6428-06-07GE[address] [address]QW: RACHEL TUCKER [facility] 01/24/2025 RACHEL ZUÑIGAB: E MAIN STTel: ~~[phone] (HP) Primary Insurance:AUTUMNSOURCEPo licy Number: [id number] Date:6604-40-57RL[address] [address]PK: RACHEL TUCKER [facility] 01/18/2025 Rachel Ackerman [address] [place] [address]Lma: (HP) Primary Insurance:Self PayPolicy Number: Effective Date:2025-01-18 [facility] 09/06/2024 Rachel Ackerman Tidla[address] [place] [address]Vjj: (HP) Primary Insurance:Naomy Escobar ACAPolicy Number: [id number] Date:2024-08-23 Rachel ZuñigaB: [id number] [place] [address]Dus: (HP) [facility] 09/06/2024 Secondary Insurance:Autumnsotanyae MedicaidPolicy Number: [id number] Date:6489-00-20Qdi[address] [address]WQ: Rachel ZuñigaB: [id number] [place] [address]Mqi: (HP) [facility] 09/06/2024 Tertiary Insurance:Self PayPolicy Number: Effective Date:2024-08-23 [facility] 09/05/2024 Rachel Ackerman Uisvq[address] [place] [address]Ebm: (HP) Primary Insurance:Naomy Escobar ACAPolicy Number: [id number] Date:2024-07-20 Rachel Ackerman JavanB: [id number] [place] [address]Kry: () [facility] 09/05/2024 Secondary Insurance:Caresource MedicaidPolicy Number: [id number] Date:9375-80-54[address] [address] [place] [address]NX: Rachel Ackerman JavanB: [id number] [place] [address]Iby: () [facility] 09/05/2024 Tertiary Insurance:Self PayPolicy Number: Effective Date:2024-07-20 [facility] 07/24/2024 Rachel Tyron Zuñiga[address]ufl[address] [place] [address]Yme: () Primary Insurance:Naomy Escobar ACAPolicy Number: [id number] Date:2024-07-18 Rachel SimDakotaB: [id number] E [facility] HospitalyulisaFELICIA [address] [address]Sdi: () [facility] 07/24/2024 Secondary Insurance:Caresource MedicaidPolicy Number: [id number] Date:1404-01-10XtdSte[address] [address] [place] [address]PZ: Rachel SimDakotaB: [id number] E [place] [address]Nbl: () [facility] 07/24/2024 Tertiary Insurance:Self PayPolicy Number: Effective Date:2024-07-21 [facility]EN[facility] 07/09/2024 RACHEL Tyron EDOUARDB: E [facility] STTel: [phone]~~[phone] () Primary Insurance:CARESOURCEPo licy Number: [id number] Date:7720-58-21TZ [address] [address]GI: RACHEL TUCKER [facility] 07/09/2024 RACHEL ZUÑIGADOB: E MAIN STTel: [phone] (HP) Primary Insurance:AUTUMNSOTANYAEPo licy Number: [id number] Date:4917-71-73ID [address] [address]CE: RACHEL TUCKER [facility] 07/09/2024 RACHEL ZUÑIGAB: E MAIN STTel: ~~[phone] (HP) Primary Insurance:Sowmya torres Insurance CompanyPolicy Number: [id number] Date:4669-82-29ZC[address] [address]ZY: [id number] RACHEL TUCKER [facility] 07/09/2024 Secondary Insurance:AUTUMNSOURCEPo licy Number: [id number] Date:0752-56-94JS[address] [address]VD: [facility] 07/06/2024 Rachel Ackerman Ihayk[address] [place] [address]Pit: (HP) Primary Insurance:Naomy Escobar ACAPolicy Number: [id number] Date:2024-07-06 Rachel ZuñigaB: [id number] [place] [address]Kqz: (HP) [facility] 07/06/2024 Secondary Insurance:Autumnsotanyae MedicaidPolicy Number: [id number] Date:1784-83-75Njz[address] [address]GK: Rachel EdouardB: [id number] [place] [address]Fuf: () [facility] 07/06/2024 Tertiary Insurance:Self PayPolicy Number: Effective Date:2024-07-06 NOT GIVENUNK [facility] 07/04/2024 Rachel Zu[address] [place] [address]Rbs: () Primary Insurance:Shickley Alonsoetter ACAPolicy Number: [id number] Date:2024-06-21 Rachel EdouardB: [id number] [place] [address]Jbi: () [facility] 07/04/2024 Secondary Insurance:Caresource MedicaidPolicy Number: [id number] Date:7381-72-84Mnj[address] [address] [place] [address]GX: Rachel EdouardB: [id number] [place] [address]Cnh: () [facility] 07/04/2024 Tertiary Insurance:Self PayPolicy Number: Effective Date:2024-06-21 NOT [facility]EN[facility] 06/08/2024 Rachel Zuñ[address] [place] [address]Ppg: () Primary Insurance:Shickley Alonsoetter ACAPolicy Number: [id number] Date:2024-05-17 Rachel EdouardB: [id number] [place] [address]Hpl: () [facility] 06/08/2024 Secondary Insurance:CaresourcePo licy Number: [id number] Date:9706-84-95Ugb[address] [place] [address]EN: Rachel EdouardB: [id number] [place] [address]Hjp: () [facility] 06/08/2024 Tertiary Insurance:Self PayPolicy Number: Effective Date:2024-05-24 [facility] 05/16/2024 Rachel Acuna[address] [place] [address]Hhb: () Primary Insurance:Shickley Alonsovashtir ACAPolicy Number: [id number] Date:2024-01-03 Rachel EdouardB: [id number] [place] [address]Tfg: () [facility] 05/16/2024 Secondary Insurance:Caresource MedicaidPolicy Number: [id number] Date:6648-17-94NsmSte[address] [address] [place] [facility] [place] [address]SE: Rachel EdouardB: [id number] [place] [address]Mbf: () [facility] 05/16/2024 Tertiary Insurance:Self PayPolicy Number: Effective Date:2024-05-16 NOT GIVENUNK [facility] 03/16/2024 Rachel Zuñiga[address] [place] [address]Bfd: () Primary Insurance:Shickley Alonsovashtir ACAPolicy Number: [id number] Date:2024-01-03 Rachel EdouardB: [id number] [place] [address]Oph: () [facility] 03/16/2024 Secondary Insurance:Caresource MedicaidPolicy Number: [id number] Date:9948-64-94Vji [address] [place] [address]IL: Rachel Tyron EdouardB: [id number] [place] [address]Ibt: () [facility] 03/16/2024 Tertiary Insurance:Self PayPolicy Number: Effective Date:2024-01-27 NOT GIVENUNK [facility] 03/02/2024 Rachel Zuñiga[address] [place] [address]Vjf: () Primary Insurance:Naomy Escobar ACAPolicy Number: [id number] Date:2024-01-03 Rachel EdouardB: [id number] [place] [address]Zvs: () [facility] 03/02/2024 Secondary Insurance:[facility] [place] MedicaidPolicy Number: [id number] Date:9121-14-21Dkb [address] [address] [place] [address]DC: Rachel EdouardB: [id number] [place] [address]Aej: () [facility] 03/02/2024 Tertiary Insurance:Self PayPolicy Number: Effective Date:2024-03-02 [facility] 03/01/2024 Rachel Zuñiga[address] [place] [address]Vyd: () Primary Insurance:Shickley Ambvashtijerrod ACAPolicy Number: [id number] Date:2024-01-03 Rachel EdouardB: [id number] [place] [address]Zsk: () [facility] 03/01/2024 Secondary Insurance:Caresource MedicaidPolicy Number: [id number] Date:5328-34-15Xhj[address] [address] [place] [address]GV: Rachel EdouardB: [id number] [place] [address]Cnu: () [facility] 03/01/2024 Tertiary Insurance:Self PayPolicy Number: Effective Date:2024-02-21 [facility]
--- OUTSIDE RECORDS SUMMARY | 2025-02-22 04:15 | XMS_ITS ---
Author Organization [facility] es Address [address] [place] [address] Care Team Providers Care Die Cast Engineer Name Role Phone Harrietness Niki Primary Care Provider [phone] Yokasta Perera Unavailable [phone] REASON FOR VISIT swollen legs Social History Sex Assigned At : Social History Observation Description Sex Assigned At Female Encounters Encounter Location Date Provider Diagnosis [facility] [address] [place] [address] 02/22/2025 Niki Gentile Plan Of Treatment Next Appt Details Provider Name:Niki Gentile, 03/06/2025 09:45:00 AM, [address] [place], [address], Provider Name:Yokasta Perera, 03/13/2025 08:00:00 AM, [address], [place], [address], Provider Name:Niki Gentile, 03/22/2025 08:15:00 AM, [address] [place], [address], Provider Name:Yokasta Perera, 04/30/2025 08:00:00 AM, [address], [place], [address], Progress Notes * RACHEL MCGARRY LDOB:1980 (45 yo F)Acc No.[id number]:02/22/2025 Progress Notes Patient: RACHEL HIGGINBOTHAM Account Number:[id number] Appointment Provider: Tyron Gentile NP :1980 A ge:45 Y S ex:Female Date:02/22/2025 Address:[address] [place], [place] [address] Subjective: * Chief Complaints: * 1 . Swollen legs. * Medical History: Objective: * Vitals: Assessment: Plan: * Treatment: * Images: * Electronic signature of Piero Gentile CNP on 02/26/2025 at 06:37 AM EDT Sign off status: Pending * Appointment Provider: Tyron Gentile NP Date: 02/22/2025 Generated for Romi hawkins/Kate/Vanesa on: 02/26/2025 06:37 AM EDT
--- OUTSIDE RECORDS SUMMARY | 2025-02-22 07:45 | XMS_ITS ---
Author Organization [facility] es Address [address] [place] [address] Care Team Providers Care Hand Outside Cutter Name Role Phone Harrietness Niki Primary Care Provider Yokasta Perera [phone] Reason For Referral Reason reeval and treat, tr ending elevated wbc w/o infection Diagnosis 1 Leukocytosis, unspec ified (D72.829) Referral Organization [facility] Referring Provider First Name Niki Referring Provider Last Name [facility] Referring Provider Speciality Nurse Prac titioner Referred Provider Specialty Hematology Referral Priority Routine REASON FOR VISIT lab results Medications Medication SIG (Take, Route, Frequency, Duration) Notes Start Date End Date Status Potassium Chloride Jeanette ER 20 MEQ 1 tablet with lasix Orally Once a day for 30 days 02/22/2025 04/23/2025 Active Social History Sex Assigned At : Social History Observation Description Sex Assigned At Female Encounters Encounter Location Date Provider Diagnosis [facility] [address] [place] [address] 02/22/2025 Niki Gentile Lower extremity ollie a R60.0 and Leukocytosis, unspecified D72.829 Assessments Encounter Date Diagnosis (ICD Code) Assessment Notes Treatment Notes Treatment Clinical Notes Section Notes 02/22/2025 Lower extremity edema (ICD-10 - R60.0) 02/22/2025 Leukocytosis, unspecified (ICD-10 - D72.829) Plan Of Treatment Medication Medication Name Sig Start Date Stop Date Notes Potassium Chloride Jeanette ER 2 0 MEQ 1 tablet with lasix Orally Once a day for 30 days 02/22/2025 04/23/2025 Referrals Referral Date Details 02/23/2025 02/23/2025, reeval a nd treat, trending elevated wbc w/o infection Next Appt Details Provider Name:Niki Gentile, 03/06/2025 09:45:00 AM, [address] [place], [address], Provider Name:Yokasta Blacksamantha, 03/13/2025 08:00:00 AM, [address], [address], [place], [address], Provider Name:Niki Lariosness, 03/22/2025 08:15:00 AM, [address], [place], [address], Provider Name:Yokastanoemy Perera, 04/30/2025 08:00:00 AM, [address], [place], [address], Progress Notes * RACHEL MCGARRY LDOB:1980 (45 yo F)Acc No.[id number]:02/22/2025 Patient: RACHEL HIGGINBOTHAM Account Number:[id number] :1980 A ge:45 Y S ex:Female Address:[address] [place] [id number] * Refills Start Potassium Chloride Jeanette ER Tablet Extended Release, 20 MEQ, Orally, 30 Tablet, 1 tablet with lasix, Once a day, 30 days, Refills=1 Subjective: * Chief Complaints: * L ab results * Medical History: * Surgical History: * Hospitalization/Major Diagno stic Procedure: * Medications: Objective: * Vitals: * Physical Examination: Assessment: * Assessment: 1. L ower extremity edema - R60.0 (Primary) 2 . L eukocytosis, unspecified - D72.829 Plan: * Treatment: 2. L eukocytosis, unspecified Referral To:Hematology Reason:reeval and treat, trending elevated wbc w/o infection * Procedure Codes: * true * Date: Generated for Printi ng/Farhinag/eTransmitting on: 0 02/26/2025 06:37 AM EDT Consultation Request Notes Referral Date Referring Provider Referred Provider Not es 02/23/2025 Niki Gentile , emilee and mike at, trending elevated wbc w/o infection
[2025-02-26 06:29] VITALS: BP 147/90; PULSE 84; TEMP 36.5; O2SAT 98; BMI 24.6
--- OUTSIDE RECORDS SUMMARY | 2025-02-26 06:36 | XMS_ITS | Clinical Summary ---
Author Organization [facility] Address [address] [place] [address] Care Team Providers Care Cabin Service Agent Name Role Phone Julio Borja MD Primary Care Provider [phone] Allergies Active Allergy Reactions Criticality Noted Date Comments Amitriptyline 06/14/2023 Other Reaction(s): Unknown Latex 06/14/2023 Other Reaction(s): Unknown Sulfamethoxazole-Trimethoprim 2022 Other Reaction(s): Unknown Tramadol 06/14/2023 Other Reaction(s): Unknown Medications tiZANidine (Zanaflex) 4 MG tablet Take 4 mg by mouth every 8 (eight) hours if needed for muscle spasms. 05/29/2023 Active simvastatin (Zocor) 20 MG tablet Take 20 mg by mouth at bedtime. 05/29/2023 Active sertraline (Zoloft) 100 MG tablet Take 100 mg by mouth in the morning. Active metFORMIN (Glucophage) 500 MG tablet Take 500 mg by mouth in the morning and 500 mg in the evening. Take with meals. 04/08/2023 Active meloxicam (Mobic) 15 MG tablet Take 15 mg by mouth in the morning. Active Melatonin 10 MG capsule as directed Orally Active Lancets (onetouch ultrasoft) lancets 1 each by Other route if needed. 02/12/2023 Active ketorolac (Toradol) 10 MG tablet Take 10 mg by mouth every 6 (six) hours if needed. Active OneTouch Ultra test strip 1 each by Other route if needed. 02/12/2023 Active gabapentin (Neurontin) 800 MG tablet Take 800 mg by mouth in the morning and 800 mg in the evening and 800 mg before bedtime. Active Ferrous Sulfate (iron) 325 (65 Fe) MG tablet 04/22/2023 Activ e ergocalciferol (Vitamin D2) 1.25 MG (44935 UT) capsule Take 50,000 Units by mouth 1 (one) time per week. 05/17/2023 Active Trulicity 1.5 MG/0.5ML solution pen-injector Inject 1.5 mg under the skin 1 (one) time per week. 04/19/2023 Active doxazosin (Cardura) 2 MG tablet Take 2 mg by mouth at bedtime. Active divalproex (Depakote ER) 500 MG 24 hr tablet Take 500 mg by mouth in the morning. 04/22/2023 Active Depakote 250 MG EC tablet Take 250 mg by mouth 1 time. Active Diclofenac Sodium powder 04/15/2023 Activ e diazePAM (Valium) 5 MG tablet Take 5 mg by mouth every 8 (eight) hours. 05/17/2023 Active Vraylar 1.5 MG capsule 05/29/2023 Active Blood Glucose Monitoring Suppl (ONE TOUCH ULTRA 2) w/Device kit 02/12/2023 Active acetaminophen (Tylenol) 325 MG tablet Take 325 mg by mouth every 8 (eight) hours if needed. 04/22/2023 Active vancomycin (Vancocin) 125 MG capsule Take 125 mg by mouth in the morning and 125 mg at noon and 125 mg in the evening and 125 mg before bedtime. 10/09/2023 Active Family History Medical History Relation Name Comments Brain cancer Maternal Grandfather Amando Ordaz's Cancer Maternal Grandfather Amando Ordaz's Heart failure Maternal Grandfather Amando Ordaz's Breast cancer Maternal Grandmother Minesh Ordaz's Cancer Maternal Grandmother Minesh Ordaz's Colon cancer Maternal Grandmother Minesh Ordaz's Ovarian cancer Maternal Grandmother Minesh Ordaz's Rheum arthritis Maternal Grandmother Minesh Ordaz's Cancer Mother Eda Cam Ovarian cancer Mother Eda Cam Thyroid disease Mother Eda Cam Uterine cancer Mother Eda Cam Breast cancer Mother's Sister Abby Dawson Ovarian cancer Mother's Sister Abby Dawson Thyroid disease Mother's Sister Abby Dawson Brain cancer Paternal Grandfather Cervical cancer Sibling Colon cancer Sibling Ovarian cancer Sibling Uterine cancer Sibling Cancer Sister Anisa Marcus Relation Name Status Comments Brother x2 Father Maternal Grandfather Amando Ordaz's Maternal Grandmother Minesh Ordaz's Mother Eda Cam Alive Mother's Sister Abby Osman Paternal Grandfather Sibling Sister Anisa Marcus Son x2 Social History Tobacco Use Types Packs/Day Years Used Date Smoking Tobacco: Every Day Cigarettes 0.5 35 Smokeless Tobacco: Never Tobacco Cessation:Ready to Q uit: Not Asked; Counseling Given: Not Answered Comments:> Smokes first cigarette 6-30 minutes after waking up. Alcohol Use Standard Drinks/Week Comments Not Currently 0 (1 standard drink = 0.6 oz pure alcohol) caffeine intake: 1-2 cups per day coffee AUDIT-C Answer Date Recorded Q1: How often do you have a drink containing alc ohol? Monthly or less 06/14/2023 Q2: How many drinks containi ng alcohol do you have on a typical day when you are drinking? 1 or 2 06/14/2023 Q3: How often do you have si x or more drinks on one occasion? Never 06/14/2023 PHQ-2 Answer Date Recorded Patient Health Questionnaire-2 Score 0 06/14/2023 Comments No Sex and Gender Information Value Date Recorded Sex Assigned at Not on file Legal Sex Female 7:01 PM EDT Gender Identity Not on file Sexual Orientation Not on file Last Filed Vital Signs Vital Sign Reading Time Taken Comments Blood Pressure 120/70 10/20/2023 11:55 AM EST Pulse - - Temperature - - Respiratory Rate - - Oxygen Saturation - - Inhaled Oxygen Concentration - - Weight 74.4 kg (164 lb) 10/20/2023 11:55 AM EST Height 166.4 cm (5' 5.5 ) 10/20/2023 11:55 AM ES T Body Mass Index 26.88 10/20/2023 11:55 AM EST Plan of Treatment Upcoming Encounters Date Type Department Care Team (Late st Contact Info) Description 05/09/2025 9:00 AM EDT Office Visit BERTHA GOSS [address] [address] [place] [address] Christian Rodriguez DO [address] [place] [address] Insurance [employer] MEDICA[employer] Care Teams Cabin Service Agent Relationship Specialty Start Date End Date Julio Borja MD [address] [place] [address] PCP - General Family Medicine 06/14/23
--- OUTSIDE RECORDS SUMMARY | 2025-02-26 06:36 | XMS_ITS | Encounter Summary ---
Author Organization [facility] Address [address] [place] [address] Care Team Providers Care Pipe Smoker Machine Operator Name Role Phone Julio Borja MD Primary Care Provider [phone] Encounter Details Date Type Department Care Team (Late st Contact Info) Description 03/08/2024 Abstract [facility] [address] [facility] [address] [place] [phone] Marty Hinds, DO [address] [facility] [address] [place] [address] Social History Tobacco Use Types Packs/Day Years Used Date Smoking Tobacco: Every Day Cigarettes 0.5 35 Smokeless Tobacco: Never Comments:> Smokes first ciga rette 6-30 minutes after waking up. Alcohol Use [...] on file Sexual Orientation Not on file documented as of this encounter Plan of Treatment Upcoming Encounters Date Type Department Care Team (Late st Contact Info) Description 05/09/2025 9:00 AM EDT Office Visit BERTHA GOSS [address] [address] Christian Rodriguez DO [address] [place] [address] documented as of this encounter Visit Diagnoses Not on filedocumented in this encounter Care Teams Pipe Smoker Machine Operator Relationship Specialty Start Date End Date Julio Borja MD [address] [place] [address] PCP - General Family Medicine 06/14/23 documented as of this encounter
--- OUTSIDE RECORDS SUMMARY | 2025-02-26 06:36 | XMS_ITS | Encounter Summary ---
Author Organization [facility] Address [address] [place] [address] Care Team Providers Care Vice President Of Operations Name Role Phone Julio Borja MD Primary Care Provider [phone] Encounter Details Date Type Department Care Team (Late Contact Info) Description 07/14/2023 Abstract [facility] [address] [facility] [address] [place] [phone] Marty Hinds, DO [address] [facility] [place] [address] [place] [address] Social History Tobacco Use Types Packs/Day Years Used Date Smoking Tobacco: Every Day Cigarettes Smokeless Tobacco: Never Alcohol Use Standard Drinks/Week Comments Not Currently [...] Encounters Date Type Department Care Team (Late Contact Info) Description 05/09/2025 9:00 AM EDT Office Visit BERTHA GOSS [address] [facility] [address] [place] [address] Christian Rodriguez DO [address] [place] [address] documented as of this encounter Visit Diagnoses Not on filedocumented in this encounter Care Teams Vice President Of Operations Relationship Specialty Start Date End Date Julio Borja MD [address] [place] [address] PCP - General Family Medicine 06/14/23 documented as of this encounter
--- OUTSIDE RECORDS SUMMARY | 2025-02-26 06:36 | XMS_ITS | Encounter Summary ---
Author Organization [facility] Address [address] [place] [address] Care Team Providers Care Director Custom Name Role Phone Julio Borja MD Primary Care Provider [phone] Encounter Details Date Type Department Care Team (Late st Contact Info) Description 10/08/2023 Abstract [facility] [address] [facility] [place] [address] [place] [phone] Beltran Velez MD [address] [facility] [address] [place] [address] Social History Tobacco Use Types Packs/Day Years [...] AM EDT Office Visit BERTHA GOSS [address] [phone] Christian Rodriguez DO [address] [place] [address] documented as of this encounter Visit Diagnoses Not on filedocumented in this encounter Care Teams Director Custom Relationship Specialty Start Date End Date Julio Borja MD [address] [place] [address] PCP - General Family Medicine 06/14/23 documented as of this encounter
--- OUTSIDE RECORDS SUMMARY | 2025-02-26 06:36 | XMS_ITS | Encounter Summary ---
Author Organization [facility] Address [address] [place] [address] Care Team Providers Care Chemical Engineering Professor Name Role Phone Julio Borja MD Primary Care Provider [phone] Encounter Details Date Type Department Care Team (Late Contact Info) Description 10/08/2023 External Result Encounter [facility] External Department Unsolicited Beltran Velez MD [address] [facility] [place] [address] [place] [address] Social History Tobacco Use Types Packs/Day Years [...] AM EDT Office Visit BERTHA GOSS [address] [phone] Christian Rodriguez DO [address] [place] [address] documented as of this encounter Procedures Procedure Name Priority Date/Time Associated Diagnosis Comments CT ABDOMEN PELVIS W IV CONTRAST 10/08/2023 11:42 AM EST documented in this encounter Results * CT abdomen pelvis w IV contrast (10/08/2023 11:42 AM EST) Anatomical Region Laterality Modality Body, Pelvis, Abdomen Computed T omography 10/08/2023 11:4 2 AM EST Impressions 10/08/2023 1:14 PM EST INCREASING BIBASILAR ATELECTASIS. FATTY LIVER. NO BOWEL OR URINARY TRACT OBSTRUCTION. NO PELVIC HEMATOMA OR SIGNIFICANT FREE FLUID. OTHERWISE UNCHANGED CT ABDOMEN AND PELVIS Impression dictated by: Eda Yañez M.D.10/08/2023 12:09 PM Dictation Location: [place] [address] Transcribed By: [facility] 10/08/23 1209 Dictated By: Eda Yañez MD 10/08/23 1142 Signed By: <Electronically signed by MD Eda Yañez in OV> 10/08/23 1209 Narrative 10/08/2023 1:14 PM EST [facility] [place] [address] [place] [address] [address] Scan Report Signed Patient: Asif Zuñiga MR#: [id number] 1 : 1980 Acct:[id number] Age/Sex: 43 / F ADM Date: 10/07/23 Loc: Room: [address] [place] [address] Type: ADM IN Attending Dr: Beltran Velez MD Copies to: Beltran Velez MD-[facility] Ordering Provider: Beltran Velez MD-LINDA Date of Service: 10/08/23 CT/CT abdomen pelvis w con: Abdominal pain/distended abdomen CT abdomen and pelvis with contrast CLINICAL DATA: Abdominal pain, distention and vomiting. Recent hysterectomy. COMPARISON: 10/07/2023 from [facility]. No report is available at this time. Spiral images were obtained through the abdomen pelvis following 80 mL Isovue- 300. This CT exam was performed using one [...] introduced iatrogenically. CT/CT abdomen pelvis w con Procedure Note Radiology, Radiologist, - 10/08/2023 [facility] [place] [address] [place] [address] CT Scan Report Signed Patient: Asif Zuñiga LMR#: [id number] 1 : 1980Acct:[id number] Age/Sex: 43 / FADM Date: 10/07/23 Loc: Room: [id number]: ADM IN Attending Dr: Beltran Velez MD Copies to: Beltran Velez MD-[facility] Ordering Provider: BONG Motley Date of Service: 10/08/23 CT/CT abdomen pelvis w con: Abdominalpain/distended abdomen CT abdomen and pelvis with contrast CLINICAL DATA: Abdominal pain, distention and vomiting. Recenthysterectomy. COMPARISON: 10/07/2023 from [facility]. No report is available atthis time. Spiral images were obtained through the abdomen pelvis following 80 mLIsovue- 300. This CT exam was performed using one or more following dose reduction techniques: Automatedexposure control, adjustment of the mA and/or kV according to patient size, or use ofiterative reconstruction technique. Limited cuts through the lung bases show increasing atelectasis. There is fatty infiltration of the liver. The gallbladder is surgicallyabsent and that may be the etiology of common duct prominence. There are no common duct stones.Calcified splenic granulomas are seen. The pancreas and adrenal glands show no acute findings. Thereare symmetric renal nephrograms, without hydronephrosis. There is mild atherosclerotic plaque at the aorta and iliac arteries.There are a few tiny lymph nodes. No ascites or free air is seen. There is mild air and stool withinthe colon. There is a borderline caliber small bowel loop on the left which contains fluid. Theremaining small bowel loops are not distended. A tiny umbilical hernia is present containingfat. The bony structures are intact. Images through the pelvis show some additional fluid containing smallbowel loops which are not disproportionately distended and there is continued apparent slight wallthickening. There is air and fluid at the distal colon. No diverticular disease is seen. The uterusand appendix are surgically absent. There are no dominant adnexal cysts. There is nosignificant ascites or evidence of pelvic hematoma. The urinary bladder contains a Martinez catheter and asmall amount of air that was probably introduced iatrogenically. CT/CT abdomen pelvis w con IMPRESSION: INCREASING BIBASILAR ATELECTASIS. FATTY LIVER. NO BOWEL OR URINARY TRACT OBSTRUCTION. NO PELVIC HEMATOMA OR SIGNIFICANT FREE FLUID. OTHERWISE UNCHANGED CT ABDOMEN AND PELVIS Impression dictated by: Eda Yañez M.D.10/08/2023 12:09 PM Dictation Location: [place] [address] Transcribed By: ROSA MARIA 10/08/23 1209 Dictated By: Eda Yañez MD 10/08/23 1142 Signed By: <Electronically signed by MD Eda Yañez in OV> 10/08/23 1209 us Beltran Velez MD IMG CT PROCEDURES Final Result documented in this encounter Visit Diagnoses Not on filedocumented in this encounter Care Teams Chemical Engineering Professor Relationship Specialty Start Date End Date Julio Borja MD [address] [place], [place] [phone] PCP - General Family Medicine 06/14/23 documented as of this encounter
--- OUTSIDE RECORDS SUMMARY | 2025-02-26 06:37 | XMS_ITS | Encounter Summary ---
Author Organization [facility] Address [address] [place] [address] Care Team Providers Care Gastroenterology Physician Name Role Phone uJlio Borja MD Primary Care Provider [phone] Encounter Details Date Type Department Care Team (Late st Contact Info) Description 09/30/2023 Abstract [facility] [address] [facility] [address] [place] [phone] Marty Hinds, DO [address] [facility] [address] [place] [address] Social History Tobacco Use Types Packs/Day Years [...] AM EDT Office Visit BERTHA GOSS [address] [phone] Christian Rodriguez DO [address] [place] [address] documented as of this encounter Visit Diagnoses Not on filedocumented in this encounter Care Teams Gastroenterology Physician Relationship Specialty Start Date End Date Julio Borja MD [address] [place] [address] PCP - General Family Medicine 06/14/23 documented as of this encounter
--- OUTSIDE RECORDS SUMMARY | 2025-02-26 06:37 | XMS_ITS | Patient Health Record ---
Author Organization [facility] medidametricsic es Address [address] [place] [address] Care Team Providers Care Business Rules Analyst Name Role Phone Niki Gentile Primary Care Provider Yokasta Perera Unavailable [phone] Dr. Andrés Chavarria Unavailable [phone] Allergies Allergen (clinical drug ingredient) Drug/Non Drug Allergy documented on EMR Reaction Allergy Type Onset Date Status Latex latex (uncoded) hives Allergy Acti ve sulfamethoxazole / trimethoprim Bactrim DS dizziness Drug Allergy Active tramadol Ultram causes seizures Drug Allergy A ctive Results Component Value Reference Range Notes Urinalysis automated Reviewed date:01/30/2025 10:33:53 AM Interpretation: Performing Lab: Notes/Report: Urine-Color yellow Appearance clear Specific [place] 1.015 pH 6.0 Glucose +- 100mg/dL Protein negative Occult Blood negative Bilirubin negative Urobilinogen,Semi-Qn 0.2 Nitrite, Urine negative Ketones negative WBC Esterase negative UBASE - Urinary Tract Infect ion (HTRx) Reviewed date:02/01/2025 09:00:13 PM Interpretation: Performing Lab: Notes/Report: Real-Time polymerase chain reaction (TaqMan qPCR) was utilized for detection for all tested organisms and resistance genes. Initiation of antimicrobial therapy prior to testing may affect results and can lead to the detection of non-living microorganisms. Detection of microbes must be correlated with current/recent antibiotic usage and patient signs and symptoms. Microbial sensitivity testing is not performed at this lab. Art Psychotherapist Or Therapist to CFU/mL equivalent thresholds were established based on studies using known CFU/mL urine specimens performed at [facility] in [place], [place]. Testing performed by [facility] ([address], [place] [address]; CLIA# [id number]; End Stapler Odessa Capellan, PhD, [facility])). This test was developed, and its performance characteristics determined by [facility]. It has not been cleared or approved by the FDA. However, such approval/clearance is not required, as the laboratory is regulated and qualified under CLIA to perform high-complexity testing. This test is used for clinical purposes and should not be regarded as investigational or for research. *Approximate copies of target nucleic acid per &micro;L (Low: <2,500 copies/&micro;L, Moderate: 2,500-50,000 copies/&micro;L, High: >50,000 copies/&micro;L) National Infectious Disease Consensus Data Potentially effective oral antibiotics, based on presence of detected microbes, antimicrobial resistance genes, and national antimicrobial sensitivity data (see Summary Antibiogram). Acinetobacter baumannii 0.000 19.961 - 24.689 ppm Acinetobacter baumannii Not Detected 19.961 - 24.689 ppm Citrobacter freundii 0.000 23.000 - 31 .881 ppm Citrobacter freundii Not Detected 23.000 - 31 .881 ppm Enterobacter aerogenes, cloacae 0.000 23.000 - 31.535 ppm Enterobacter aerogenes, cloacae Not Detected 23.000 - 31.535 ppm Enterococcus faecalis, faecium 0.000 2 6.000 - 31.575 ppm Enterococcus faecalis, faecium Not Detected 2 6.000 - 31.575 ppm Escherichia coli 0.000 23.000 - 28.500 ppm Escherichia coli Not Detected 23.000 - 28.500 ppm Klebsiella pneumoniae, oxytoca 0.000 2 3.000 - 30.500 ppm Klebsiella pneumoniae, oxytoca Not Detected 2 3.000 - 30.500 ppm Morganella morganii 0.000 19.961 - 24. 689 ppm Morganella morganii Not Detected 19.961 - 24. 689 ppm Proteus mirabilis, vulgaris 0.000 23.0 00 - 28.500 ppm Proteus mirabilis, vulgaris Not Detected 23.0 00 - 28.500 ppm Pseudomonas aeruginosa 0.000 23.000 - 28.500 ppm Pseudomonas aeruginosa Not Detected 23.000 - 28.500 ppm Staphylococcus aureus 0.000 26.000 - 3 0.902 ppm Staphylococcus aureus Not Detected 26.000 - 3 0.902 ppm Streptococcus agalactiae (Group B Strep) 0.000 26.000 - 32.222 ppm Streptococcus agalactiae (Group B Strep) Not Detected 26.000 - 32.222 ppm Luz Elena albicans, parapsilosis, tropicalis 0.000 19.961 - 30.770 ppm Luz Elena albicans, parapsilosis, tropicalis Not Detected 19.961 - 30.770 ppm Luz Elena glabrata (Nakaseomyc es glabratus) 0.000 23.000 - 32.138 ppm Luz Elena glabrata (Nakaseomyc es glabratus) Not Detected 23.000 - 32.138 ppm Luz Elena krusei (Pichia kudriavzevii) 27.905 23.000 - 32.271 ppm Luz Elena krusei (Pichia kudriavzevii) Detected 23.000 - 32.271 ppm Serratia marcescens 0.000 23.000 - 31. 204 ppm Serratia marcescens Not Detected 23.000 - 31. 204 ppm Streptococcus pyogenes (Grou p A strep) 0.000 19.961 - 24.689 ppm Streptococcus pyogenes (Grou p A strep) Not Detected 19.961 - 24.689 ppm Staphylococcus saprophyticus 0.000 19. 961 - 24.689 ppm Staphylococcus saprophyticus Not Detected 19. 961 - 24.689 ppm Staphylococcus epidermidis, haemolyticus, lugdunensis 0.000 19.961 - 24.689 ppm Staphylococcus epidermidis, haemolyticus, lugdunensis Not Detected 19.961 - 24.689 ppm Thyroid Stim Hormone w/Rflx Reviewed date:05/17/2024 07:51:56 AM Interpretation: Performing Lab: Notes/Report: Reason for Exam Vitamin D deficiency complication, without long- Reason for Exam Type 2 diabetes mellitus without Thyroid Stim Hormone w/Rflx 1.69 0.45-5.33 u[i U]/mL Vitamin D 25 Hydroxy Reviewed date:05/17/2024 07:52:57 AM Interpretation: Performing Lab: Notes/Report: Reason for Exam Type 2 diabetes mellitus without complication, without long- Reason for Exam Vitamin D deficiency Vitamin D 25 Hydroxy Total 46.2 30-100 ng/mL VITAMIN D STATUS 25(OH)VITAMIN D RANGE (ng/mL) Deficient <20 Insufficient 20 to <30 Sufficient 30 to 100 Reference: Jovanni MF,Dominique NC, Gillian NINA, et al. Evaluation,treatment , and prevention of vitamin D deficiency; an Endocrine Society clinical practice guideline. JCEM. 2010; 96(7):1911-30. Complete Blood Count Auto Di ff Reviewed date:05/17/2024 07:56:06 AM Interpretation: Performing Lab:, [facility], [address], [place] Notes/Report: complication, without long- Reason for Exam Type 2 diabetes mellitus without White Blood Count 15.0 3.8-11.6 10*3/uL Uncorrected WBC 15.0 3.8-11.6 10*3/uL Red Blood Count 4.64 3.60-5.00 Hemoglobin 14.1 11.8-15.4 g/dL Hematocrit 41.1 34.0-46.4 % Mean Corpuscular Volume 88.4 80-100 fL Mean Corpuscular Hemoglobin 30.3 24.7-34.3 pg Mean Corpuscular HGB Conc 34.3 32.0-35.0 g/dL Red Cell Distribution Width 13.3 11.9-15.3 % Platelet Count 400 150-450 10*3/uL Mean Platelet Volume 7.9 6.3-10.7 fL Neutrophils % (Auto) 61.6 . % Lymphocytes % (Auto) 33.0 . % Monocytes % (Auto) 4.4 . % Eosinophils % (Auto) 0.4 . % Basophils % (Auto) 0.6 . % NRBC% 0.1 0-0.5 /100{WBC} Neutrophils # (Auto) 9.3 1.8-7.7 10*3/uL Lymphocytes # (Auto) 5.0 1.00-4.8 10*3/uL Monocytes # (Auto) 0.7 0.0-0.8 10*3/uL Eosinophils # (Auto) 0.1 0.0-0.45 10*3/uL Basophils # (Auto) 0.1 0.0-0.2 10*3/uL MR lumbar spine wo con Reviewed date:06/08/2024 09:26:48 PM Interpretation: Performing Lab: Notes/Report: [facility] [place] [address] [place] [address] MRI Report Signed Patient: Aisf Zuñiga MR#: [id number] 1 : 1980 Acct:[id number] Age/Sex: 44 / F ADM Date: 06/08/24 [facility] Room: Type: [facility] CLI Attending Dr: Niki DEJESUS Copies to: OLEG Sharp Ordering Provider: [...] Dar Messina M.D.06/08/2024 4:52 PM Dictation Location: [place] [address] Transcribed By: [facility] 06/08/24 1652 Dictated By: Dar Messina II, MD 06/08/24 1643 Signed By: <Electronically signed by Dar Messina II, MD in [place]> 06/08/24 1652 A1C with Estimated Average G lauro Reviewed date:02/21/2025 01:06:34 PM Interpretation: Performing Lab:, [facility], [place] Notes/Report: complication, without long- Reason for Exam Type 2 diabetes mellitus without Hemoglobin A1C 6.4 4.3-5.6 % Increased risk for diabetes: 5.7 - 6.4 diabetes: >6.4 glycemic control for adults with diabetes: <7.0 Estimated Average Glucose 137 Comprehensive Metabolic Pane l Reviewed date:02/21/2025 01:06:14 PM Interpretation: Performing Lab:, [facility], [place] Notes/Report: Reason for Exam Vitamin D deficiency Reason for Exam Hypercholesterolemia complication, without long- Reason for Exam Type 2 diabetes mellitus without Glucose 79 70-100 mg/dL Random Glucose Reference Range is dependent on time and content of last meal. Glucose of more than 200 mg/dL in a nonstressed, ambulatory subject supports the diagnosis of Diabetes Mellitus. ADA recommended reference range Blood Urea Nitrogen 8 7-25 mg/dL Creatinine 0.74 0.60-1.20 mg/dL Sodium 135 136-145 mmol/L Potassium 3.9 3.5-5.1 mmol/L Chloride 96 98-107 mmol/L Carbon Dioxide 27.8 21.0-31.0 mmol/L Calcium 9.7 8.6-10.3 mg/dL Total Protein 7.3 6.4-8.9 g/dL Albumin Level 4.6 3.5-5.7 g/dL Globulin 2.7 Albumin/Globulin Ratio 1.7 Bilirubin,Total 0.4 0.3-1.0 mg/dL Aspartate Amino Transferase 14 13-39 U/L Alanine Aminotransferase 11 7-52 U/L Alkaline Phosphatase 55 34-104 U/L Estimated GFR >60.0 Anion Gap 15.1 6.0-15.0 meq/L Lipid Panel Reviewed date:02/21/2025 01:06:00 PM Interpretation: Performing Lab: Notes/Report: Reason for Exam Type 2 diabetes mellitus without complication, without long- Reason for Exam Hypercholesterolemia Reason for Exam Vitamin D deficiency Cholesterol 212 140-200 mg/dL Chol less than 200 mg/dl low risk Chol 201-239 mg/dl borderline risk Chol 240 mg/dl and greater high risk HDL Cholesterol 47 23-92 mg/dL HDL CHOL ATP-III CLASSIFICATION Cardiovascular Risk HDL > or equal to 60 mg/dL LOW HDL < 40 mg/dL HIGH Triglyceride w/Reflex 313 0-149 mg/dL TRIG ATP III CLASSIFICATION TRIG less than 150 mg/dL Normal TRIG 150-199 mg/dL Borderline high TRIG 200-500 mg/dL High TRIG greater than 500 mg/dL Very high Standard traceable to the Center for Disease Conrtrol and Prevention (CDC) test method. LDL Cholesterol,Calculated 102 0-100 mg/dL LDL ATP III CLASSIFICATION LDL less than 100 mg/dL Optimal LDL 100-129 mg/dL Near or above optimal LDL 130-159 mg/dL Borderline high LDL 160-189 mg/dL High LDL greater than 189 mg/dL Very high VLDL CHOLESTEROL 62 Chol/HDL Ratio 4.5 <5.0 Vitamin D 25 Hydroxy Reviewed date:02/21/2025 01:06:52 PM Interpretation: Performing Lab: Notes/Report: Reason for Exam Type 2 diabetes mellitus without complication, without long- Reason for Exam Hypercholesterolemia Reason for Exam Vitamin D deficiency Vitamin D 25 Hydroxy Total 76.2 30-100 ng/mL VITAMIN D STATUS 25(OH)VITAMIN D RANGE (ng/mL) Deficient <20 Insufficient 20 to <30 Sufficient 30 to 100 Reference: Jovanni MF,Dominique NC, Gillian NINA, et al. Evaluation,treatment , and prevention of vitamin D deficiency; an Endocrine Society clinical practice guideline. JCEM. 2010; 96(2):1911-30. Complete Blood Count Auto Di ff Reviewed date:02/23/2025 11:31:15 AM Interpretation: Performing Lab:, [facility], [address] [place] Notes/Report: Reason for Exam Type 2 diabetes mellitus without complication, without long- White Blood Count 18.1 3.8-11.6 10*3/uL Uncorrected WBC 18.1 3.8-11.6 10*3/uL Red Blood Count 4.62 3.60-5.00 10*6/uL Hemoglobin 13.9 11.8-15.4 g/dL Hematocrit 40.7 34.0-46.4 % Mean Corpuscular Volume 88.1 80-100 fL Mean Corpuscular Hemoglobin 30.0 24.7-34.3 pg Mean Corpuscular HGB Conc 34.1 32.0-35.0 g/dL Red Cell Distribution Width 13.0 11.9-15.3 % Platelet Count 315 150-450 10*3/uL Mean Platelet Volume 8.2 6.3-10.7 fL Neutrophils % (Auto) 63.0 . % Lymphocytes % (Auto) 30.9 . % Monocytes % (Auto) 5.0 . % Eosinophils % (Auto) 0.3 . % Basophils % (Auto) 0.8 . % NRBC% 0.0 0-0.5 /100{WBC} Neutrophils # (Auto) 11.4 1.8-7.7 10*3/uL Lymphocytes # (Auto) 5.6 1.00-4.8 10*3/uL Monocytes # (Auto) 0.9 0.0-0.8 10*3/uL Eosinophils # (Auto) 0.1 0.0-0.45 10*3/uL Basophils # (Auto) 0.1 0.0-0.2 10*3/uL Urine Culture Reviewed date:02/23/2025 11:18:04 AM Interpretation: Performing Lab:, [facility], [address] [place] Notes/Report: Reason for Exam Urinary retention Urine Lipid Panel Reviewed date:05/17/2024 07:51:50 AM Interpretation: Performing Lab: Notes/Report: Reason for Exam Type 2 diabetes mellitus without complication, without long- Reason for Exam Vitamin D deficiency Cholesterol 237 140-200 mg/dL Chol less than 200 mg/dl low risk Chol 201-239 mg/dl borderline risk Chol 240 mg/dl and greater high risk HDL Cholesterol 43 23-92 mg/dL HDL > or equal to 60 mg/dL LOW HDL < 40 mg/dL HIGH HDL CHOL ATP-III CLASSIFICATION Cardiovascular Risk Triglyceride w/Reflex 321 0-149 mg/dL TRIG ATP III CLASSIFICATION TRIG less than 150 mg/dL Normal TRIG 150-199 mg/dL Borderline high TRIG 200-500 mg/dL High TRIG greater than 500 mg/dL Very high Standard traceable to the Center for Disease Conrtrol and Prevention (CDC) test method. LDL Cholesterol,Calculated 130 0-100 mg/dL LDL ATP III CLASSIFICATION LDL less than 100 mg/dL Optimal LDL 100-129 mg/dL Near or above optimal LDL 130-159 mg/dL Borderline high LDL 160-189 mg/dL High LDL greater than 189 mg/dL Very high VLDL CHOLESTEROL 64 Chol/HDL Ratio 5.5 <5.0 Comprehensive Metabolic Pane l Reviewed date:05/17/2024 07:56:19 AM Interpretation: Performing Lab:, [facility], [address] [place] Notes/Report: Reason for Exam Type 2 diabetes mellitus without complication, without long- Reason for Exam Vitamin D deficiency Glucose 74 70-100 mg/dL Random Glucose Reference Range is dependent on time and content of last meal. Glucose of more than 200 mg/dL in a nonstressed, ambulatory subject supports the diagnosis of Diabetes Mellitus. ADA recommended reference range Blood Urea Nitrogen 5 7-25 mg/dL Creatinine 0.47 0.60-1.20 mg/dL Sodium 131 136-145 mmol/L Potassium 4.1 3.5-5.1 mmol/L Chloride 96 98-107 mmol/L Carbon Dioxide 26.0 21.0-31.0 mmol/L Calcium 9.0 8.6-10.3 mg/dL Total Protein 6.7 6.4-8.9 g/dL Albumin Level 4.2 3.5-5.7 g/dL Globulin 2.5 Albumin/Globulin Ratio 1.7 Bilirubin,Total 0.3 0.3-1.0 mg/dL Aspartate Amino Transferase 11 13-39 U/L Alanine Aminotransferase 11 7-52 U/L Alkaline Phosphatase 62 34-104 U/L Estimated GFR > 60.0 Anion Gap 13.1 6.0-15.0 A1C with Estimated Average G lauro Reviewed date:05/17/2024 12:05:53 PM Interpretation: Performing Lab:, [facility], [address] [facility] Notes/Report: Reason for Exam Type 2 diabetes mellitus without complication, without long- Hemoglobin A1C 6.4 4.3-5.6 % Increased risk for diabetes: 5.7 - 6.4 diabetes: >6.4 glycemic control for adults with diabetes: <7.0 Estimated Average Glucose 137 MM screening mammo BI w/CAD Reviewed date:02/15/2025 10:33:45 PM Interpretation: Performing Lab: Notes/Report: [facility] [address] [place] [id number] Mammography Report Signed Patient: Asif Zuñiga MR#: [id number] 1 : 1980 Acct:[id number] Age/Sex: 45 / F Adm Date: 02/15/25 Loc: [place] Room: Type: [facility] Attending Dr: Niki DEJESUS Ordering Provider: OLEG Sharp Date of Service: 02/15/25 Procedure(s): MM screening mammo BI w/CAD Accession Number(s): ([id number]) MM/MM screening mammo BI w/CAD: Screening mammogram [...] Welch M.D. 02/15/2025 10:28 AM Dictation Location: [facility] Dictated By: Praveen Welch DO 02/15/25 1027 Signed By: <Electronically signed by Praveen Welch DO in OV> 02/15/25 1028 Comprehensive Metabolic Pane l Reviewed date:07/05/2024 02:30:55 PM Interpretation: Performing Lab:, [facility], [address] [place] Notes/Report: Glucose 164 70-100 mg/dL Random Glucose Reference Range is dependent on time and content of last meal. Glucose of more than 200 mg/dL in a nonstressed, ambulatory subject supports the diagnosis of Diabetes Mellitus. ADA recommended reference range Blood Urea Nitrogen 6 7-25 mg/dL Creatinine 0.61 0.60-1.20 mg/dL Sodium 130 136-145 mmol/L Potassium 4.6 3.5-5.1 mmol/L Chloride 92 98-107 mmol/L Carbon Dioxide 29.2 21.0-31.0 mmol/L Calcium 8.9 8.6-10.3 mg/dL Total Protein 5.9 6.4-8.9 g/dL Albumin Level 3.8 3.5-5.7 g/dL Globulin 2.1 Albumin/Globulin Ratio 1.8 Bilirubin,Total 0.3 0.3-1.0 mg/dL Aspartate Amino Transferase 8 13-39 U/L Alanine Aminotransferase 7 7-52 U/L Alkaline Phosphatase 54 34-104 U/L Estimated GFR > 60.0 Anion Gap 13.4 6.0-15.0 Lipid Panel Reviewed date:07/05/2024 02:28:07 PM Interpretation: Performing Lab: Notes/Report: Cholesterol 185 140-200 mg/dL Chol less than 200 mg/dl low risk Chol 201-239 mg/dl borderline risk Chol 240 mg/dl and greater high risk HDL Cholesterol 48 23-92 mg/dL HDL CHOL ATP-III CLASSIFICATION Cardiovascular Risk HDL > or equal to 60 mg/dL LOW HDL < 40 mg/dL HIGH Triglyceride w/Reflex 393 0-149 mg/dL TRIG ATP III CLASSIFICATION TRIG less than 150 mg/dL Normal TRIG 150-199 mg/dL Borderline high TRIG 200-500 mg/dL High TRIG greater than 500 mg/dL Very high Standard traceable to the Center for Disease Conrtrol and Prevention (CDC) test method. LDL Cholesterol,Calculated 58 0-100 mg/dL LDL ATP III CLASSIFICATION LDL less than 100 mg/dL Optimal LDL 100-129 mg/dL Near or above optimal LDL 130-159 mg/dL Borderline high LDL 160-189 mg/dL High LDL greater than 189 mg/dL Very high VLDL CHOLESTEROL 78 Chol/HDL Ratio 3.9 <5.0 Complete Blood Count Auto Di ff Reviewed date:07/05/2024 02:31:06 PM Interpretation: Performing Lab:, [facility], [address], [place] Notes/Report: White Blood Count 19.3 3.8-11.6 10*3/uL Uncorrected WBC 19.3 3.8-11.6 10*3/uL Red Blood Count 4.55 3.60-5.00 Hemoglobin 13.7 11.8-15.4 g/dL Hematocrit 40.0 34.0-46.4 % Mean Corpuscular Volume 87.9 80-100 fL Mean Corpuscular Hemoglobin 30.0 24.7-34.3 pg Mean Corpuscular HGB Conc 34.2 32.0-35.0 g/dL Red Cell Distribution Width 13.0 11.9-15.3 % Platelet Count 350 150-450 10*3/uL Mean Platelet Volume 7.0 6.3-10.7 fL Neutrophils % (Auto) 66.4 . % Lymphocytes % (Auto) 24.6 . % Monocytes % (Auto) 7.9 . % Eosinophils % (Auto) 0.5 . % Basophils % (Auto) 0.6 . % NRBC% 0.1 0-0.5 /100{WBC} Neutrophils # (Auto) 12.8 1.8-7.7 10*3/uL Lymphocytes # (Auto) 4.7 1.00-4.8 10*3/uL Monocytes # (Auto) 1.5 0.0-0.8 10*3/uL Eosinophils # (Auto) 0.1 0.0-0.45 10*3/uL Basophils # (Auto) 0.1 0.0-0.2 10*3/uL Rapid COVID-19 Reviewed date:06/20/2024 10:16:36 AM Interpretation: Performing Lab: Notes/Report: Results positive US breast LT limited Reviewed date:09/06/2024 01:58:47 PM Interpretation: Performing Lab: Notes/Report: [facility] [place] [address] [place] [address] Mammography Report Signed Patient: Asif Zuñiga MR#: [id number] 1 : 1980 Acct:[id number] Age/Sex: 44 / F ADM Date: 09/06/24 Loc: [place] Room: Type: [facility] Attending Dr: Niki DEJESUS Copies to: OLEG Sharp Ordering Provider: OLEG Sharp Date of Service: 09/06/24 MM/MM diagnostic mammo LT w/CAD: Breast pain, left ([id number]) US/US breast LT limited: Breast pain, left [...] Eda Yañez M.D.09/06/2024 8:56 AM Dictation Location: [facility] Transcribed By: [facility] 09/06/24 0856 Dictated By: Eda Yañez MD 09/06/24 0819 Signed By: <Electronically signed by MD Eda Yañez in OV> 09/06/24 0856 Hemoglobin A1c Reviewed date:10/19/2024 10:01:12 AM Interpretation:6.5 Performing Lab: Notes/Report: 6.5 Hemoglobin A1c 6.5 5 - 7.9 % US breast RT limited Reviewed date:07/27/2024 08:40:14 AM Interpretation: Performing Lab: Notes/Report: [facility] [place] [address] [place] [address] Ultrasound Report Signed Patient: Asif Zuñiga MR#: [id number] 1 : 1980 Acct:[id number] Age/Sex: 44 / F ADM Date: 07/24/24 Loc: [facility] Room: Type: [facility] Attending Dr: Niki DEJESUS Ordering Provider: OLEG Sharp Date of [...] Praveen Welch M.D.07/25/2024 10:48 AM Dictation Location: [facility] Tech: Dominique Samantha Transcribed By: PWS 07/25/24 1048 Dictated By: Praveen Welch DO 07/24/24 1642 Signed By: <Electronically signed by Praveen Welch DO in [place]> 07/25/24 1048 Glucose Poct Glucometers Reviewed date:03/16/2024 08:16:20 AM Interpretation: Performing Lab:, [facility], [address] [place] Notes/Report: Glucose Poc Glucometers 140 Random Glucose Reference Range is dependent on time and content of last meal. Glucose of more than 200 mg/dL in a nonstressed, ambulatory subject supports the diagnosis of Diabetes Mellitus. Comprehensive Metabolic Pane l Reviewed date:07/06/2024 10:43:59 PM Interpretation: Performing Lab:, [facility], [address] [place] Notes/Report: Glucose 142 70-100 mg/dL Random Glucose Reference Range is dependent on time and content of last meal. Glucose of more than 200 mg/dL in a nonstressed, ambulatory subject supports the diagnosis of Diabetes Mellitus. ADA recommended reference range Blood Urea Nitrogen 8 7-25 mg/dL Creatinine 0.59 0.60-1.20 mg/dL Sodium 132 136-145 mmol/L Potassium 3.9 3.5-5.1 mmol/L Chloride 97 98-107 mmol/L Carbon Dioxide 25.2 21.0-31.0 mmol/L Calcium 9.2 8.6-10.3 mg/dL Total Protein 7.2 6.4-8.9 g/dL Albumin Level 4.2 3.5-5.7 g/dL Globulin 3.0 Albumin/Globulin Ratio 1.4 Bilirubin,Total 0.3 0.3-1.0 mg/dL Aspartate Amino Transferase 10 13-39 U/L Alanine Aminotransferase 9 7-52 U/L Alkaline Phosphatase 59 34-104 U/L Estimated GFR > 60.0 Anion Gap 13.7 6.0-15.0 Creatinine Clr Calc Pharmacy 108.35 Lipase Reviewed date:07/06/2024 10:44:06 PM Interpretation: Performing Lab: Notes/Report: Lipase 48.0 11.0-82.0 U/L Complete Blood Count Auto Di ff Reviewed date:07/06/2024 10:44:19 PM Interpretation: Performing Lab:, [facility], [address], [place] Notes/Report: White Blood Count 22.9 3.8-11.6 10*3/uL Uncorrected WBC 22.9 3.8-11.6 10*3/uL Red Blood Count 4.93 3.60-5.00 Hemoglobin 15.0 11.8-15.4 g/dL Hematocrit 43.5 34.0-46.4 % Mean Corpuscular Volume 88.3 80-100 fL Mean Corpuscular Hemoglobin 30.5 24.7-34.3 pg Mean Corpuscular HGB Conc 34.5 32.0-35.0 g/dL Red Cell Distribution Width 13.2 11.9-15.3 % Platelet Count 387 150-450 10*3/uL Mean Platelet Volume 7.2 6.3-10.7 fL Neutrophils % (Auto) 66.1 . % Lymphocytes % (Auto) 25.3 . % Monocytes % (Auto) 6.9 . % Eosinophils % (Auto) 0.6 . % Basophils % (Auto) 1.1 . % NRBC% 0.0 0-0.5 /100{WBC} Neutrophils # (Auto) 15.1 1.8-7.7 10*3/uL Lymphocytes # (Auto) 5.8 1.00-4.8 10*3/uL Monocytes # (Auto) 1.6 0.0-0.8 10*3/uL Eosinophils # (Auto) 0.1 0.0-0.45 10*3/uL Basophils # (Auto) 0.3 0.0-0.2 10*3/uL Monocyte Distribution Width 18.69 0.00-20.00 % Glucose Poct Glucometers Reviewed date:09/05/2024 05:01:02 PM Interpretation: Performing Lab:, [facility], [address] [place] Notes/Report: Glucose Poc Glucometers 132 Random Glucose Reference Range is dependent on time and content of last meal. Glucose of more than 200 mg/dL in a nonstressed, ambulatory subject supports the diagnosis of Diabetes Mellitus. Commemt1 Glu2: Cleaned Meter Reason For Referral Reason PT CALLED 3X; PHONE HAS RESTRICTIONS re evaluation for leukocytosis, infection r/o Diagnosis 1 Leukocytosis, unspec ified (D72.829) Referral Organization [facility] Referring Provider First Name Niki Referring Provider Last Name Krupa Referring Provider Speciality Nurse Nely alcantar Referred Provider [facility] Referred Provider Specialty Hematology Referral Priority Routine Reason *FAXED 02/21 furthe r eval and treat Diagnosis 1 Urinary retention (R 33.9) Referral Organization [facility] Referring Provider First Name Niki Referring Provider Last Name Krupa Referring Provider Speciality Nurse Nely alcantar Referred Provider [facility] [place] Referred Provider Specialty Urology Referral Priority Routine Reason *FAXED 02/21 eval a nd treat, update mri shows possible fatty tumor in lumbar spine, increasing neurological symptoms Diagnosis 1 Lumbar disc disorder with myelopathy (M51.06) Referral Organization [facility] Referring Provider First Name Niki Referring Provider Last Name Krupa Referring Provider Channing alcantar Referred Provider [facility] . 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 status epilepticus, unspecified epilepsy type (G40.909) Referral Organization [facility] Referring Provider First Name Niki Referring Provider Last Name Krupa Referring Provider Channing alcantar Referred Provider [facility] Referred Provider Specialty Neurology Referral Priority Routine Reason reeval and treat, tr ending elevated wbc w/o infection Diagnosis 1 Leukocytosis, unspec ified (D72.829) Referral Organization [facility] Referring Provider First Name Niki Referring Provider Last Name Krupa Referring Provider ity Nurse Nely alcantar Referred Provider Specialty Hematology Referral Priority Routine Medications Medication SIG (Take, Route, Frequency, Duration) Notes Start Date End Date Status Furosemide 20 MG 1 tablet Orally Once a day for 30 day(s) 02/21/2025 03/23/2025 [facility] Melatonin 10 MG TAKE ONE CAPSULE Orally at bed time for 30 days 03/01/2025 Active tiZANidine HCl 4 MG TAKE 2 TABLETS BY MOUTH EVERY 8 HOURS for 30 Active [facility] Spectravite Women - TAKE 1 TABLET BY MOUTH EVERY DAY for 90 Active Temazepam 15 MG 1 capsule at bedtime Orally Once a day for 7 days As needed 08/22/2024 Active Sertraline HCl 100 MG TAKE 1 TABLET BY M OUTH EVERY DAY for 30 Active Chlorhexidine Gluconate 0.12 % as directed Mouth/Throat twice a day (bid) for 30 days Active Meclizine HCl 25 MG TAKE 1/2 TO 1 TABLET BY MOUTH EVERY 6 TO 8 HOURS FOR 10 DAYS for 10 Active Multi Complete Orally daily Ac tive Trulicity 3 MG/0.5ML inject 3 mg Subcutaneous once a week for 30 days Active Acetaminophen 500 MG 1 tablet as needed Orally every 6 hrs 05/23/2024 Active Doxazosin Mesylate 2 MG TAKE 1 TABLET BY MOUTH EVERY DAY for 30 Active oxyBUTYnin Chloride 5 MG 1 tablet Orally twice a day for 30 days As needed for bladder spasm 01/30/2025 03/01/2025 Active Divalproex Sodium ER 500 MG TAKE ONE TABLET BY MOUTH TWICE A DAY for 30 Active LORazepam 0.5 MG 1 tablet Orally Once a day for 30 days As needed 01/30/2025 Active Gabapentin 800 MG TAKE 1 TABLET BY ALFREDO TH 3 TO 4 TIMES A DAY Orally Once a day for 30 days Active Potassium Chloride Jeanette ER 20 MEQ 1 tablet with lasix Orally Once a day for 30 days 02/22/2025 04/23/2025 Active Ketorolac Tromethamine 10 MG TAKE 1 TABLET BY MOUTH EVERY 6 HOURS WITH FOOD OR MILK FOR 5 DAYS for 5 Active Meloxicam 15 MG TAKE 1 TABLET BY ALFREDO TH EVERY DAY for 30 Active OneTouch Ultra - CHECK BLOOD SUGAR TWICE DAILY AND WHEN NEEDED for 30 Active metroNIDAZOLE 500 MG TAKE 1 TABLET BY MO [facility] THREE TIMES A DAY FOR 10 DAYS for 10 Not-Taking Ferrous Sulfate 325 (65 Fe) MG TAKE 1 TABLET Orally daily for 30 days Active metFORMIN HCl 500 MG TAKE 1 TABLET Orall y twice a day for 30 days Active Sertraline HCl 50 MG 1 tablet Orally Onc e a day for 30 days Active Simvastatin 20 MG 1 tablet in the evening Orally Once a day for 30 days Active Acetaminophen 325 MG TAKE 1 TABLET Orall y every 4 hours for 30 days Active Vitamin D (Ergocalciferol) 1.25 MG (88211 UT) 1 capsule Orally once a week for 30 days Active Divalproex Sodium 250 MG TAKE ONE TABLET BY MOUTH DAILY AT 2:00PM Orally Once a day for 30 days Active Vraylar 1.5 MG 1 capsule Orally Onc e a day for 30 days Active diazePAM 10 MG TAKE 1 TABLET BY ALFREDO TH AT BEDTIME Orally Once a day for 30 days 02/20/2025 Active Promethazine HCl 25 MG 1 tablet Orally every 12 hrs for 30 days As needed Active Social History Tobacco Use: Social History Observation Description Date Details (start date - stop date) Current Smoker NA - NA Sex Assigned At : Social History Observation Description Sex Assigned At Female Tobacco Screen: Question Answer Notes When did you start smoking 02/02/1988 Are you a: current smoker How often do you smoke cigarettes? every day How many cigarettes a day do you smoke? 11-20 How soon after you wake up do you smoke your fir st cigarette? 6-30 min Alcohol Screening: Question Answer Notes Did you have a drink containing alcohol in the p ast year? No Points 0 Interpretation Negative Depression Screening (PHQ-9): Question Answer Notes Little interest or pleasure in doing things Mirella ral days Feeling down, depressed, or hopeless Several day s Trouble falling or staying asleep, or sleeping t oo much Several days Feeling tired or having little energy Several da ys Poor appetite or overeating Not at all Feeling bad about yourself-o r that you are a failure or have let yourself or your family down More than half the days Trouble concentrating on thi ngs, such as reading the newspaper or watching television Several days Moving or speaking so slowly that other people could have noticed. Or the opposite being so fidgety or restless that you have been moving around a lot more than usual Several days Thoughts that you would be b neeta off , or of hurting yourself in some way Not at all Total Score 8 Intepretation Mild Depression Tobacco Control (Standard) Question Answer Notes Tobacco use: Current smoker Section Notes: Stress increased d/t daughte rs health condition. Problems Problem Type SNOMED Code ICD Code Onset Dates Problem Status W/U Status Risk Notes Problem Tobacco user (981817779) Nicotine dependence, unspecified, uncomplicated (F17.200) Active confirmed Problem 1422470 Primary insomnia (F51.01) Active confirmed Problem 963129558 Fibromyalgia (M79.7) Active confirmed Problem Chronic back pain (229186244) Chronic back pain (M54.9) Active confirmed Problem 88550489 Vitamin D defici ency (E55.9) Active confirmed Problem 867717445 Lumbar radiculop athy (M54.16) Active confirmed Problem 64806606 PTSD (post-traum atic stress disorder) (F43.10) Active confirmed Problem 354581636 Moderate episode of recurrent major depressive disorder (F33.1) Active confirmed Problem 767041832 Nonintractable epilepsy without status epilepticus, unspecified epilepsy type (G40.909) Active confirmed Problem 710209689 Panic Disorder (F41.0) Active confirmed Problem 864706312 Osteoarthritis o f spine with radiculopathy, cervical region (M47.22) Active confirmed Problem 069763170 Cervical back pa in with evidence of disc disease (M50.90) Active confirmed Problem Hypercholesterolemia (32353187) Hypercholesterolemia (E78.00) Active confirmed Problem 837829176 Type 2 diabetes mellitus without complication, without long-term current use of insulin (E11.9) Active confirmed Problem Irritable bowel (14866597) Irritable bowel (K58.9) Active confirmed Problem 132407199 Intractable migr gisella without status migrainosus, unspecified migraine type (G43.919) Active confirmed Problem 227942459 Scoliosis of thoracolumbar spine, unspecified scoliosis type (M41.9) Active confirmed Problem 292665056 Leukocytosis, unspecified (D72.829) Active confirmed Problem 5859662 Rotator cuff syn drome of left shoulder (M75.102) Active confirmed Problem 99766434 Lumbar disc diso rder with myelopathy (M51.06) Active confirmed Problem 937879820 Carotidynia (G90.01) Active confirmed Problem 798340206 S/P hysterectomy (Z90.710) Active confirmed Problem 937718887 S/P tooth extrac tion (K08.409) Active confirmed Vital Signs Heart Rate 84 /min 02/20/2025 Temperature 98.2 degrees Fahrenheit 02/20/2025 Respiratory Rate 18 /min 02/20/2025 Oximetry 100 % 02/20/2025 Blood pressure diastolic 73 mm Hg 02/20/2025 Height 65 in 02/20/2025 Blood pressure systolic 109 mm Hg 02/20/2025 Weight 155.5 lbs 02/20/2025 BMI 25.87 kg/m2 02/20/2025 Encounters Encounter Location Date Provider Diagnosis [facility] [address] [place] [address] 12/14/2024 [facility] [address] [place] [address] 01/16/2025 [facility] [address] [place] [address] 02/20/2025 [facility] [address] [place] [address] 01/30/2025 Niki Spasic Recurrent UTI N39.0 ; Sensation of pressure in bladder area R39.89 ; Microscopic hematuria R31.29 ; Lumbar radiculopathy M54.16 ; Fibromyalgia M79.7 ; S/P tooth extraction K08.409 ; Nicotine dependence, unspecified, uncomplicated F17.200 and Panic Disorder F41.0 [facility] [address] [place] [address] 04/12/2024 Andrés Chavarria Cracked tooth K03.81 [facility] [address] [place] [address] 05/23/2024 Yokasta Saric Cracked tooth K03.81 [facility] [address] [place] [address] 06/28/2024 Yokasta Saric Cracked tooth K03.81 [facility] [address] [place] [address] 08/15/2024 Yokasta Saric Cracked tooth K03.81 [facility] [address] [place] [address] 05/26/2024 Andrés Chavarria Encounter for dental examination and cleaning with abnormal findings Z01.21 and Other dental procedure status Z98.[address] [address] 09/19/2024 Niki Spasic Nicotine dependence, unspecified, uncomplicated F17.200 ; S/P tooth extraction K08.409 and Type 2 diabetes mellitus without complication, without long-term current use of insulin E11.[address] [address] 10/19/2024 Niki Spasic Nicotine dependence, unspecified, uncomplicated F17.200 ; Acute diarrhea R19.7 ; Type 2 diabetes mellitus without complication, without long-term current use of insulin E11.9 and S/P tooth extraction K08.[address] [address] 02/20/2025 Niki Spasic Nicotine dependence, unspecified, uncomplicated F17.200 ; Urinary retention R33.9 ; Type 2 diabetes mellitus without complication, without long-term current use of insulin E11.9 ; Vitamin D deficiency E55.9 ; Hypercholesterolemia E78.00 ; Lower extremity edema R60.0 ; Lumbar disc disorder with myelopathy M51.06 and Nonintractable epilepsy without status epilepticus, unspecified epilepsy type G40.[address] [address] 05/16/2024 Niki Spasic Lumbar radiculopathy M54.16 ; Type 2 diabetes mellitus without complication, without long-term current use of insulin E11.9 ; Vitamin D deficiency E55.9 ; Lumbar disc disorder with myelopathy M51.06 ; Vertigo R42 ; Nicotine dependence, unspecified, uncomplicated F17.200 ; Cervical cancer screening Z12.4 ; Scoliosis of thoracolumbar spine, unspecified scoliosis type M41.9 and Fibromyalgia M79.[address] [address] 06/20/2024 Niki Spasic Body aches R52 ; Acu te COVID-19 U07.1 ; Lumbar radiculopathy M54.16 ; Fibromyalgia M79.7 ; Nicotine dependence, unspecified, uncomplicated F17.200 ; Chronic back pain M54.9 and Hypercholesterolemia E78.[address] [address] 08/22/2024 Niki Spasic Nicotine dependence, unspecified, uncomplicated F17.200 ; Infection of mouth K12.2 ; S/P tooth extraction K08.409 ; Breast pain, left N64.4 and At high risk for breast cancer Z91.[address] [address] 05/23/2024 Niki Spasic Nicotine dependence, unspecified, uncomplicated F17.200 ; Hyponatremia E87.1 ; S/P tooth extraction K08.409 ; Leukocytosis, unspecified D72.829 and Type 2 diabetes mellitus without complication, without long-term current use of insulin E11.[address] [address] 07/06/2024 Niki Spasic Primary insomnia F51 .01 ; Hyponatremia E87.1 and Leukocytosis, unspecified D72.[address] [address] 07/11/2024 Niki Spasic Nicotine dependence, unspecified, uncomplicated F17.200 ; Nausea R11.0 ; Bilious vomiting with nausea R11.14 ; Leukocytosis, unspecified D72.829 ; Fibromyalgia M79.7 ; Type 2 diabetes mellitus without complication, without long-term current use of insulin E11.9 and Carotidynia G90.01 [facility] [address] [place] [address] 02/22/2025 Niki Spasic Lower extremity ollie a R60.0 and Leukocytosis, unspecified D72.829 [facility] [address] [place] [address] 05/27/2024 Niki Spasic [place] [address] [place] [address] 10/27/2024 Niki Spasic Nicotine dependence, unspecified, uncomplicated F17.200 and Chronic back pain M54.9 [facility] [address] [place] [address] 01/12/2025 Niki Spasic Nicotine dependence, unspecified, uncomplicated F17.200 [place] [address] [place] [address] 02/05/2025 [facility]iki [facility] Screening mammogram for breast cancer Z12.31 [facility] [address] [place] [address] 02/13/2025 [facility] [address] [place] [address] 02/15/2025 [facility] [address] [place] [address] 02/21/2025 Niki [facility] Lower extremity ollie a R60.0 [facility] [address] [place] [address] 07/24/2024 Niki [facility] Type 2 diabetes scooter itus without complication, without long-term current use of insulin E11.9 [facility] [address] [place] [address] 07/27/2024 Niki [facility] Cervical cancer scre ening Z12.4 [facility] [address] [place] [address] 08/11/2024 [facility] [address] [place] [address] 08/14/2024 [place] [address] [place] [address] 08/16/2024 Niki [facility] Nicotine dependence, unspecified, uncomplicated F17.200 [facility] [address] [place] [address] 09/06/2024 [place] [address] [place] [address] 07/04/2024 [facility] [address] [place] [address] 07/05/2024 [place] [address] [place] [address] 07/06/2024 [place] [address] [place] [address] 07/17/2024 [facility] Cyst of right breast N60.01 and Abnormal ultrasound of breast R92.8 [place] [address] [place] [address] 07/19/2024 Niki Spasic Fibromyalgia M79.7 [place] [address] [place] [address] 07/20/2024 [place] [address] [place] [address] 05/17/2024 [place] [address] [place] [address] 05/23/2024 [place] [address] [place] [address] 06/08/2024 [place] [address] [place] [address] 06/20/2024 [facility] Fibromyalgia M79.7 ; Hypercholesterolemia E78.00 ; Acute COVID-19 U07.1 and Lumbar radiculopathy M54.16 [place] [address] [place] [address] 06/20/2024 [facility] Assessments Encounter Date Diagnosis (ICD Code) Assessment Notes Treatment Notes Treatment Clinical Notes Section Notes 09/19/2024 Nicotine dependence, unspecified, uncomplicated (ICD-10 - F17.200) smoking cessation discussed. Pt verbalized understanding to complication of tobacco use including cardiac and pulmonary disease, as well as stroke. Pt declines interest in this time. 08/16/2024 Nicotine dependence, unspecified, uncomplicated (ICD-10 - F17.200) 07/27/2024 Cervical cancer screening (ICD-10 - Z12.4) 07/24/2024 Type 2 diabetes mellitus without complication, without long-term current use of insulin (ICD-10 - E11.9) 07/19/2024 Fibromyalgia (ICD-10 - M79.7) 07/17/2024 Cyst of right breast (ICD-10 - N60.01) 07/17/2024 Abnormal ultrasound of breast (ICD-10 - R92.8) 07/11/2024 Nicotine dependence, unspecified, uncomplicated (ICD-10 - F17.200) ls tob smoking cessation discussed. Pt verbalized understanding to complication of tobacco use including cardiac and pulmonary disease, as well as stroke. Pt declines interest in this time. 09/19/2024 S/P tooth extraction (ICD-10 - K08.409) will refill pain medication until tooth can be abstracted. She is advised to continue mouthwash. F/u with dentist 10/27/2024 Nicotine dependence, unspecified, uncomplicated (ICD-10 - F17.200) 10/27/2024 Chronic back pain (ICD-10 - M54.9) 10/19/2024 Nicotine dependence, unspecified, uncomplicated (ICD-10 - F17.200) smoking cessation discussed. Pt verbalized understanding to complication of tobacco use including cardiac and pulmonary disease, as well as stroke. Pt declines interest in this time. 10/19/2024 Acute diarrhea (ICD- 10 - R19.7) hx of cdiff and was on antibiotics for mcfp s/t oral care. will treat with flagyl. . Enc hydration, if unable to keep up with fluids, have NV go to the ER. Will prescribe a medication for abd cramping, take as prescribed. RTO if not improvement in 3-5 days. 07/11/2024 Nausea (ICD-10 - R11.0) enc to hydrate and take her zofran, if unable to tolerate food or drink, has uncontrolled vomitting, needs tto go to the ER 07/06/2024 Primary insomnia (ICD-10 - F51.01) good sleep hygiene discussed. Avoid stimulants such as tv, electronic, exercises before bed. Relaxation techniques also discussed. pt enc to take 5mg to 10 mg melatonin. If symptoms persist will discuss prescription sleep aides, valium did not help as it used to with her pain to allow her to go to sleep will stop this and change to resotril, she is advised NOT to take the two together. she VU, short term f/u next week to re-evaluate 07/06/2024 Hyponatremia (ICD-10 - E87.1) pt has hx of epilepsy, NA is low 130, no change to medications, has been on high dose depakote from neurology for years. advised to go to the ER for further eval. Agrees will go to [facility] 06/28/2024 Cracked tooth (ICD-1 0 - K03.81) 06/20/2024 Body aches (ICD-10 - R52) see above 06/20/2024 Acute COVID-19 (ICD- 10 - U07.1) Pt has tested positive for COVID, advised per the CDC he need to isolate for 5 days, members of the home should mask for days, test if symptoms occur. After 5 days if you have no symptoms you can resume normal activity however masking is recommended, if you still have symptoms after isolation, continue to mask and stay home for an additional 5 days. It is a virus and we treat the symptoms, pt is encouraged to drink plenty of fluids, wear mask in the home when in close contact with others, frequently wash or sanitize hands and wipe down surfaces. If you develop chest pain, pressure, worsening SOB, bluish coloring around your lips, please call 911 or go to the nearest ER. Short term f/u. 05/26/2024 Encounter for dental examination and cleaning with abnormal findings (ICD-10 - Z01.21) 05/23/2024 Nicotine dependence, unspecified, uncomplicated (ICD-10 - F17.200) smoking cessation discussed. Pt verbalized understanding to complication of tobacco use including cardiac and pulmonary disease, as well as stroke. Pt declines interest in this time. 05/23/2024 Hyponatremia (ICD-10 - E87.1) discussed water intake, she states she drinks maybe a cup of coffee and pop. She has a siezure disorder, only med that works for her is the depakote which can be the cause of the lower NA, will repeat labs at her f/u if not corrected or worsen will need to add salt tabs 05/23/2024 Cracked tooth (ICD-1 0 - K03.81) 05/16/2024 Lumbar radiculopathy (ICD-10 - M54.16) pt treated with conservative measures, medications, pain medications, PT, home exercise program and has been having injection therapy. Pain is worsening. Pt is plateauing in treatment, yet symptoms worseing, will get updated MRI, may need referral to neuro or ortho surg 04/12/2024 Cracked tooth (ICD-1 0 - K03.81) 02/22/2025 Lower extremity ollie a (ICD-10 - R60.0) 02/22/2025 Leukocytosis, unspecified (ICD-10 - D72.829) 02/21/2025 Lower extremity ollie a (ICD-10 - R60.0) 02/20/2025 Nicotine dependence, unspecified, uncomplicated (ICD-10 - F17.200) smoking cessation discussed. Pt verbalized understanding to complication of tobacco use including cardiac and pulmonary disease, as well as stroke. Pt declines interest in this time. 02/20/2025 Urinary retention (ICD-10 - R33.9) enc to schedule her US, referral to urology for further evaluation, reports the lasix relaxes the bladder, will dose prn for swelling. Advised to take in the am as increase urination will occur. Will get ER report to review, repeat urine testing today. continue oxybutrin for bladder spasms. Pt agree with POC 02/05/2025 Screening mammogram for breast cancer (ICD-10 - Z12.31) 01/30/2025 Recurrent UTI (ICD-1 0 - N39.0) will recheck urine culture and treat accordingly, pt has bladder spasms, will start oxybutrin for spasm and get updated US to further eval. Has seen urology in the past and had urethral stricture. 01/30/2025 Sensation of pressur e in bladder area (ICD-10 - R39.89) see above 01/12/2025 Nicotine dependence, unspecified, uncomplicated (ICD-10 - F17.200) 08/22/2024 Nicotine dependence, unspecified, uncomplicated (ICD-10 - F17.200) smoking cessation discussed. Pt verbalized understanding to complication of tobacco use including cardiac and pulmonary disease, as well as stroke. Pt declines interest in this time. pt requested medication refills today, refills sent per request 08/22/2024 Infection of mouth (ICD-10 - K12.2) see aobve 08/15/2024 Cracked tooth (ICD-1 0 - K03.81) 06/20/2024 Fibromyalgia (ICD-10 - M79.7) 08/22/2024 S/P tooth extraction (ICD-10 - K08.409) continue with warm salt water garggles, also will prescribe antibiotic and pain medication. If worsens, gums bleed she needs to go to Er or f/u with surgoen, will repeat cbc once infection clears to recheck wbc. 06/20/2024 Hypercholesterolemia (ICD-10 - E78.00) 01/30/2025 Microscopic hematuri a (ICD-10 - R31.29) 02/20/2025 Type 2 diabetes mellitus without complication, without long-term current use of insulin (ICD-10 - E11.9) AIC goal of 7.0. Continue same medications as prescribed. Labs ordered to review renal function. Urine for microalbumin within the year. Continue home monitoring of blood sugars; if <70 or >450 go to the ER. Pt enc to have annual eye exams as well as enc to not cut toe nails, routine foot care and checks with podiatry, if you develop any sores/concern RTO. F/U 3 months 05/16/2024 Type 2 diabetes mellitus without complication, without long-term current use of insulin (ICD-10 - E11.9) AIC goal of 7.0. Continue same medications as prescribed. Labs ordered to review renal function. Urine for microalbumin within the year. Continue home monitoring of blood sugars; if <70 or >450 go to the ER. Pt enc to have annual eye exams as well as enc to not cut toe nails, routine foot care and checks with podiatry, if you develop any sores/concern RTO. F/U 3 months 05/23/2024 S/P tooth extraction (ICD-10 - K08.409) pt with poor dental hygiene, had 4 teeth pulled today, will give antibiotics and pt has leukocytosis and chronic can be caused by poor dental care. Plan is to remove all teeth and get dentures 06/20/2024 Lumbar radiculopathy (ICD-10 - M54.16) defer to Dr. Miramontes, pt would benefit from additonal injections 05/26/2024 Other dental procedu re status (ICD-10 - Z98.818) 07/06/2024 Leukocytosis, unspecified (ICD-10 - D72.829) wbc back up to 19, hx of leukocytosis, seen hematology in the past, pt advised to go to ER for further work up and r/o infection, will likely need a new referral to hematology. Also will f/u next week to re-eval and discuss Er report. 07/11/2024 Bilious vomiting wit h nausea (ICD-10 - R11.14) see ER 10/19/2024 Type 2 diabetes mellitus without complication, without long-term current use of insulin (ICD-10 - E11.9) AIC is below goal of 7.0. Continue same medications as prescribed. Labs ordered to review renal function. Urine for microalbumin within the year. Continue home monitoring of blood sugars; if <70 or >450 go to the ER. Pt enc to have annual eye exams as well as enc to not cut toe nails, routine foot care and checks with podiatry, if you develop any sores/concern RTO. F/U 3 months 09/19/2024 Type 2 diabetes mellitus without complication, without long-term current use of insulin (ICD-10 - E11.9) A!C is above goal of 7.0, optimal goal is 6.5%. Medication reviewed. Medication continued today. She missed two injections. Pt is enc to monitor BS at home, if <70 or >450 go to the ER. Will get update labs today including renal, liver, and thyroid function. Microalbumin within last year. 10/19/2024 S/P tooth extraction (ICD-10 - K08.409) You are being prescribed a control substance. These can be habit forming and will be used for a short period a time. Refills will be determined based on symptoms. Do not mix these medications with alcohol, do not share these medications, do not sell these medication, do not drive or operate heavy machinery while taking these medications. OARRS report was reviewed. No misuse or abuse is noted. Pt verbalizes understanding. 07/11/2024 Leukocytosis, unspecified (ICD-10 - D72.829) wbc back up to 19, hx of leukocytosis, seen hematology in the past, pt advised to go to ER for further work up and r/o infection, will likely need a new referral to hematology. Also will f/u next week to re-eval and discuss Er report. will re-refer 06/20/2024 Fibromyalgia (ICD-10 - M79.7) Chronic pain, continue medications, monitor for acute changes in pain and RTO for new symptoms for severe pain, go to the ER for optimal pain management.. REqeusting pain medicaiton as flared up with covid infection, will send teresita with codeine. she VU in poc 05/16/2024 Vitamin D deficiency (ICD-10 - E55.9) Will check Vit D level, continue Vitamin D replacement as advised. Discussed diet high in Vit D, also 10-15 minutes of direct sunlight is the best source of Vit D. 05/23/2024 Leukocytosis, unspecified (ICD-10 - D72.829) pt was worked up 05/27/2022 by hematology, multiple differentials provided at the time including dental. At that tiem infection was ruled out. Additional blood work was done but pt did not f/u. increased levels may be s/t stress and smoking. Will repeat labs and speciality labs at f/u if worsen will need a new referral. 02/20/2025 Vitamin D deficiency (ICD-10 - E55.9) Will check Vit D level, continue Vitamin D replacement as advised. Discussed diet high in Vit D, also 10-15 minutes of direct sunlight is the best source of Vit D. 01/30/2025 Lumbar radiculopathy (ICD-10 - M54.16) Pt with chronic pain. appropriate referrals and treatments have been completed by specialist w/o significant improvement in pain. Not a surgical candidate. Will prescribe pain medications, pain contract is on file, random drug screens obtained. No side effects reported, OARRS reviewed and consistent with same provider and pharmacy. Pt understands that lost of medications, stolen, shared, sold, miss-use of any kind will terminate contract, also no increase in dosage or quanity will be provided, if additional medication is needed, will discuss referral at that time. 08/22/2024 Breast pain, left (ICD-10 - N64.4) complex cyst in right breast, repeat US in 6 months, will get diagnostic mammogram and US of left given new findings and increase pain in the breast. 06/20/2024 Acute COVID-19 (ICD- 10 - U07.1) 06/20/2024 Lumbar radiculopathy (ICD-10 - M54.16) 08/22/2024 At high risk for leonardo ast cancer (ICD-10 - Z91.89) see above 01/30/2025 Fibromyalgia (ICD-10 - M79.7) Chronic pain, continue medications, monitor for acute changes in pain and RTO for new symptoms for severe pain, go to the ER for optimal pain management. 02/20/2025 Hypercholesterolemia (ICD-10 - E78.00) lipid panel every 3-6 months with CMP to monitor liver and renal function, adjust medications accordingly. Discussed a low chol diet. Enc moderate daily exercise. If you develop any muscle cramping, leg cramps/pain, intolerance to medication please RTO. 05/16/2024 Lumbar disc disorder with myelopathy (ICD-10 - M51.06) see above 05/23/2024 Type 2 diabetes mellitus without complication, without long-term current use of insulin (ICD-10 - E11.9) AIC is below goal of 7.0. Continue same medications as prescribed. Continue home monitoring of blood sugars; if <70 or >450 go to the ER. Pt enc to have annual eye exams as well as enc to not cut toe nails, routine foot care and checks with podiatry, if you develop any sores/concern RTO. F/U 3 months 06/20/2024 Nicotine dependence, unspecified, uncomplicated (ICD-10 - F17.200) smoking cessation discussed. Pt verbalized understanding to complication of tobacco use including cardiac and pulmonary disease, as well as stroke. Pt declines interest in this time. 07/11/2024 Fibromyalgia (ICD-10 - M79.7) Chronic pain, continue medications, monitor for acute changes in pain and RTO for new symptoms for severe pain, go to the ER for optimal pain management. 06/20/2024 Chronic back pain (ICD-10 - M54.9) Continue with conservative measures. Rest, ice, heat as needed, back exercises are encouraged. Continue medications, take as prescribed. Pt has been to PT and Pain Managment, has underwent injections in the past with temporary relief. Enc to f/u with pain now that we have update MRI and we will fax to Dr. Miramontes. . Loss of bowel or bladder is a medication emergency, go to the ER. 07/11/2024 Type 2 diabetes mellitus without complication, without long-term current use of insulin (ICD-10 - E11.9) A!C goal of 7.0, optimal goal is 6.5%. Medication reviewed. Pt is enc to monitor BS at home, if <70 or >450 go to the ER. Will get update labs today including renal, liver, and thyroid function. Microalbumin within last year. 05/16/2024 Nicotine dependence, unspecified, uncomplicated (ICD-10 - F17.200) smoking cessation discussed. Pt verbalized understanding to complication of tobacco use including cardiac and pulmonary disease, as well as stroke. Pt declines interest in this time. 05/16/2024 Vertigo (ICD-10 - R42) pt re quested medication refills today, refills sent per request 02/20/2025 Lower extremity ollie a (ICD-10 - R60.0) evaluated in the ER, given diuretic in Er, will get US to r/o DVT although unlikely since b/l and not unilateral She agrees with POC Pending bladder and renal US. 01/30/2025 S/P tooth extraction (ICD-10 - K08.409) refill 02/20/2025 Lumbar disc disorder with myelopathy (ICD-10 - M51.06) referral to neuro surgeon to further evaluate the possible fatty tumor in lumbas spine constributing to her symptoms, pt enc to f/u with Dr. Miramontes as well. Continue medications as prescribed. Reduce gabapentin to TID to see if swelling improves. Loss of bowel or bladder go back to the ER. You are being prescribed a control substance. These can be habit forming and will be used for a short period a time. Refills will be determined based on symptoms. Do not mix these medications with alcohol, do not share these medications, do not sell these medication, do not drive or operate heavy machinery while taking these medications. OARRS report was reviewed. No misuse or abuse is noted. Pt verbalizes understanding. pt is on mobic daily, uses oral keterolac PRN and knows she cannot take the meloxicam and tordol together. 01/30/2025 Nicotine dependence, unspecified, uncomplicated (ICD-10 - F17.200) smoking cessation discussed. Pt verbalized understanding to complication of tobacco use including cardiac and pulmonary disease, as well as stroke. Pt declines interest in this time. 05/16/2024 Cervical cancer screening (ICD-10 - Z12.4) 06/20/2024 Hypercholesterolemia (ICD-10 - E78.00) lipid panel every 3-6 months with CMP to monitor liver and renal function, adjust medications accordingly. Discussed a low chol diet. Enc moderate daily exercise. If you develop any muscle cramping, leg cramps/pain, intolerance to medication please RTO. 07/11/2024 Carotidynia (ICD-10 - G90.01) will get US to further evaluate, pt is advised to go to the ER for dizziness, NINA, projectivle vomitting, chest pain or pressure. 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 dilantin level stable, was evaluated in ER. Will re-refer to neurology for further treatment. 01/30/2025 Panic Disorder (ICD- 10 - F41.0) Pt with panic disorder, stable on maintenance medications, requesting refill on short acting benzo for acute attacks. OARRS was reviewed and does no show miss use or abuse. A low quantity will be provided. Pt understands that this is a controlled substance, do not share, sell, or take more than prescribed. Pt can be subjected to random drug tests, if illicit drugs or non-prescribed medications are found you will be referred to a addiction program and will no longer receive medication. Counseling is encouraged. SI/HI go to the ER/911. Pt is on valium for her sleep/muscle relaxer. She will not take this with valium, she is compliant, her last medication refill was a year ago. 05/16/2024 Fibromyalgia (ICD-10 - M79.7) Chronic pain, continue medications, monitor for acute changes in pain and RTO for new symptoms for severe pain, go to the ER for optimal pain management. 01/30/2025 Other Body Mass Index : Care Instructions material was published, Body Mass Index: Care Instructions material was printed Plan Of Treatment Pending Test Test Name Order Date colonoscopy 09/05/2024 colonoscopy 03/16/2024 MM diagnostic mammo LT w/CAD 08/22/2024 US bladder 01/30/2025 US carotid doppler LT 07/11/2024 US renal BI 01/30/2025 US venous duplex LE BI 02/20/2025 Next Appt Details Provider Name:Niki Gentile, 03/06/2025 09:45:00 AM, [address], [address], [place], [address], Provider Name:Yokasta Perera, 03/13/2025 08:00:00 AM, [address], [place], [address], Provider Name:Niki Gentile, 03/22/2025 08:15:00 AM, [address], [address], [place], [address], Provider Name:Yokasta Blacksamantha, 04/30/2025 08:00:00 AM, [address], [place], [address], Insurance Providers Payer Name Payer Address Payer Phone Subscriber Number Group Number Insured Name Patient Relationship to Insured Coverage Start Date Coverage End Date [employer] [address] [place] [address] [id number] ASIF ZUÑIGA Self - patient is the insured 4 [employer] [place] Medicaid [address] [place] [address] [id number] ASIF ZUÑIGA Self - patient is the insured 3 [employer] [address] [place] [address] [id number] ASIF ZUÑIGA Self - patient is the insured 3 [employer]-ter[employer] [address] [place] [address] [id number] ASIF ZUÑIGA Self - patient is the insured 9 3 zMEDICAID CFC after [employer]ter[employer] [address] [place] [address] [id number] ASIF ZUÑIGA Self - patient is the insured 9 3 zDENTAL DQ [employer]ter[employer] [address] [facility] [facility] [place] [address] [id number] ASIF ZUÑIGA Self - patient is the insured 0 3 zDental MEDICAID CFC after [employer]ter[employer] 22 [address] [place] [address] [id number] ASIF ZUÑIGA Self - patient is the insured 0 3 BH [employer] [place] Medicaid [address] [place] [address] [id number] ASIF ZUÑIGA Self - patient is the insured 3 BH [employer] [address] [place] [address] [id number] ISAIAS ZUÑIGAIE Self - patient is the insured 3 Dental [employer] DQ [place] [address] [facility] [place] [address] [id number] ISAIAS ZUÑIGAIE Self - patient is the insured 4 Dental Wrap [employer] [address] [place] [address] [id number] ISAIAS ZUÑIGAIE Self - patient is the insured 4 Medications Administered Medication Instructions Date of Administration Dosage Notes TORADOL 06/08/2019 2 mL TORADOL 09/12/2019 60 mg TORADOL 06/06/2020 60 mg TORADOL 06/11/2020 2 mL TORADOL 10/22/2020 60 mg TORADOL 01/21/2021 60 mL TORADOL 05/06/2021 2 mL TORADOL 05/27/2021 1 mL TORADOL 07/15/2021 2 mL TORADOL 01/08/2022 2 mL TORADOL 11/05/2022 2 mL TORADOL 02/09/2023 2 mL TORADOL 10/26/2023 60 mg TORADOL 01/18/2024 60 mg TORADOL 05/16/2024 60 mg TORADOL 06/20/2024 60 mg TORADOL 08/22/2024 60 mg TORADOL 10/19/2024 60 mg TORADOL 01/30/2025 60 mg Medical (General) History Medical History History ICD Code seizures hx/o cervical cancer Fibromyalgia IBS LEVEL 3 undefined Surgical History Surgery Date(Month/Year) gall bladder removed 1998 appendectomy 2001 right knee ligament repair as child 03/04 990 tooth pulled 2019 hysterectomy, total with bilateral salpi mast-oopherectomy (BSO) 09/28/2023 Hospitalization History Reason Date(Month/Year) IBS; C DIFF 10/2023 HIGH BS 02/2023
--- OUTSIDE RECORDS SUMMARY | 2025-02-26 06:37 | XMS_ITS | Encounter Summary ---
Author Organization [facility] Address [address] [place] [address] Care Team Providers Care Baker Name Role Phone Julio Borja MD Primary Care Provider [phone] Encounter Details Date Type Department Care Team (Late st Contact Info) Description 07/20/2023 Abstract [facility] [address] [facility] [address] [place] [phone] Marty Hinds, DO [address] [facility] [address] [place] [address] Social History Tobacco Use Types Packs/Day Years [...] on file Sexual Orientation Not on file COVID-19 Exposure Response Date Recorded In the last 10 days, have yo u been in contact with someone who was confirmed or suspected to have Coronavirus/COVID-19? No / Unsure 07/22/2023 4:16 PM EDT documented as of this encounter Plan of Treatment Upcoming Encounters Date Type Department Care Team (Late st Contact Info) Description 05/09/2025 9:00 AM EDT Office Visit BERTHA GOSS [address] [facility] [address] [place] [address] Christian Rodriguez DO [address] [place] [address] documented as of this encounter Visit Diagnoses Not on filedocumented in this encounter Care Teams Baker Relationship Specialty Start Date End Date Julio Borja MD [address] [place] [address] PCP - General Family Medicine 06/14/23 documented as of this encounter
--- OUTSIDE RECORDS SUMMARY | 2025-02-26 06:37 | XMS_ITS | Encounter Summary ---
Author Organization [facility] Address [address] [place] [address] Care Team Providers Care Bus Driver Supervisor Name Role Phone Julio Borja MD Primary Care Provider [phone] Encounter Details Date Type Department Care Team (Late Contact Info) Description 09/21/2023 Abstract [facility] [address] [facility] [address] [place] [phone] Marty Hinds, DO [address] [facility] [address] [place] [address] Social History Tobacco Use Types Packs/Day Years Used Date Smoking Tobacco: Every Day Cigarettes 0.5 35 Smokeless Tobacco: Never Alcohol Use Standard Drinks/Week [...] AM EDT Office Visit BERTHA GOSS [address] [facility] [address] [place] [address] Christian Rodriguez DO [address] [place] [address] documented as of this encounter Visit Diagnoses Not on filedocumented in this encounter Care Teams Bus Driver Supervisor Relationship Specialty Start Date End Date Julio Borja MD [address] [place] [address] PCP - General Family Medicine 06/14/23 documented as of this encounter
--- OUTSIDE RECORDS SUMMARY | 2025-02-26 06:37 | XMS_ITS | Encounter Summary ---
Author Organization [facility] Address [address] [facility] [place] [address] Care Team Providers Care [employer] Membership Advisors Name Role Phone Julio oBrja MD Primary Care Provider [phone] Encounter Details Date Type Department Care Team (Late Contact Info) Description 06/30/2023 External Result Encounter [facility] External Department Unsolicited Marty Hinds, DO [address] [place] [address] [place] [address] Social History Tobacco Use Types Packs/Day Years [...] AM EDT Office Visit BERTHA GOSS [address] [facility] [address] [place] [address] Christian Rodriguez DO [address] [place] [address] documented as of this encounter Procedures Procedure Name Priority Date/Time Associated Diagnosis Comments ECG 12-LEAD 06/30/2023 11:37 AM EDT documented in this encounter Results * ECG 12 lead (06/30/2023 11:37 AM EDT) 06/30/2023 11:3 7 AM EDT [facility] 08/19/2023 3:[address] [address] Electrocardiograph Report Signed Patient: Asif Zuñiga MR#: [id number] 1 : 1980 Acct:[id number] Age/Sex: 43 / F ADM Date: 06/30/23 Loc: Room: Type: [facility] Attending Dr: Marty Hinds DO Ordering Provider: [...] No significant change was found Confirmed by ALEXX OSPINA MD ([id number]) on 07/02/2023 8:34:35 AM Referred By: KALEB Electronically Signed By:ALEXX OSPINA MD Transcribed By: MUS Signed By Alexx Ospina MD [id number] Procedure Note Alexx Ospina MD - 08/19/2023 [facility] Main [address] [address] Electrocardiograph Report Signed Patient: Asif Zuñiga LMR#: [id number] 1 : 1980Acct:[id number] Age/Sex: 43 / FADM Date: 06/30/23 Loc: PS Room:Type: [facility] Attending Dr: Marty Hinds DO Ordering Provider: [...] No significant change was found Confirmed by ALEXX OSPINA MD ([id number]) on 07/02/2023 8:34:35 AM Referred By: KALEB Electronically Signed By:ALEXX LAY Transcribed By: MUS Signed By Alexx Ospina MD 0834 us Marty Hinds DO ECG ORDERABLES Final Result [facility] [address] [place] [address], documented in this encounter Visit Diagnoses Not on filedocumented in this encounter Care Teams Sports [employer] Membership Advisors Relationship Specialty Start Date End Date Julio Borja [place] [address] PCP - General Family Medicine 06/14/23 documented as of this encounter
--- NOTE | 2025-02-26 06:49 | ED.GENADUL1 ---
HPI HPI - General Adult General Chief complaint: Abdominal Pain Stated complaint: PAIN IN STOMACH Time Seen by Provider: 02/26/25 06:27 Source: patient Mode of arrival: walk-in Limitations: no limitations History of Present Illness HPI narrative: 45-year-old female to the emergency department with chief complaint of abdominal pain. Pain started approximately 3 hours prior to arrival. It is cramping and sharp in nature. It is generalized. She reports it may be slightly worse in the upper abdomen. There is associated nausea. She had a normal bowel movement earlier in the evening. No fever, sweats, chills. No flank pain. No dysuria, urgency, frequency or hematuria. She denies . She is status postcholecystectomy as well as appendectomy. Related Data Home Medications ?Medication ?Instructions ?Recorded ?Confirmed divalproex 250 mg tablet,delayed 250 mg PO DAILY 04/20/23 02/26/25 release divalproex 500 mg tablet,extended 500 mg PO DAILY 04/20/23 02/26/25 release 24 hr doxazosin 2 mg tablet 2 mg PO DAILY 04/20/23 02/26/25 ergocalciferol (vitamin D2) 1,250 1,250 mcg PO DAILY 04/20/23 02/26/25 mcg (50,000 unit) capsule ferrous sulfate 325 mg (65 mg 325 mg PO DAILY 04/20/23 02/26/25 iron) tablet (FeroSul) gabapentin 800 mg tablet 800 mg PO DAILY 04/20/23 02/26/25 metformin 500 mg tablet,extended 500 mg PO DAILY 04/20/23 02/26/25 release 24 hr dulaglutide 3 mg/0.5 mL 3 mg subcut .weekly 03/26/24 02/26/25 subcutaneous pen injector (Trulicity) meloxicam 15 mg tablet 15 mg PO DAILY 03/26/24 02/26/25 multivitamin-ferrous 1 tab PO Q24H 03/26/24 02/26/25 fumarate-folic acid 18 mg-400 mcg tablet (Spectravite Women) sertraline 100 mg tablet 100 mg PO Q24H 03/26/24 02/26/25 simvastatin 20 mg tablet 20 mg PO DAILY 03/26/24 02/26/25 diazepam 10 mg tablet 10 mg PO QPM 11/18/24 02/26/25 melatonin 10 mg capsule 10 mg PO QPM 11/18/24 02/26/25 promethazine 25 mg tablet 25 mg PO BID PRN nausea and 11/18/24 02/26/25 vomiting furosemide 20 mg tablet 20 mg PO DAILY 02/26/25 02/26/25 Previous Rx's ?Medication ?Instructions ?Recorded ondansetron 4 mg disintegrating 4 mg PO Q6H PRN nausea and 11/18/24 tablet vomiting #12 tabs hydrochlorothiazide 12.5 mg tablet 12.5 mg PO DAILY #3 tabs 02/16/25 Allergies Allergy/AdvReac Type Severity Reaction Status Date / Time metoclopramide (From Reglan) Allergy Intermediate shaking Verified 02/26/25 06:34 amitriptyline Allergy dizzy Verified 02/26/25 06:34 latex Allergy hives Verified 02/26/25 06:34 sulfamethoxazole (From Allergy Hives Verified 02/26/25 06:34 Bactrim) tramadol (From Ultram) Allergy seizures Verified 02/26/25 06:34 trimethoprim (From Bactrim) Allergy Hives Verified 02/26/25 06:34 Opioid HPI Opioid Management Most Recent Opioid Data: Last Pain Scale 0 02/16/25, 14:35 Review of Systems ROS Status of ROS 10 or more systems reviewed and unremarkable except as noted in history and below [facility] Social History Smoking status: Current every day smoker Little interest or pleasure in doing things: not at all Feeling down, depressed, or hopeless: not at all Exam Narrative Exam Narrative: VITALS: I have reviewed the triage vital signs. GENERAL: Uncomfortable appearing adult female holding upper abdomen. NEURO: Alert and oriented. Moves all extremities. Face is symmetric and expressive. EYES: PERRL. No scleral icterus or conjunctival injection. No discharge. HENT: Normocephalic, atraumatic. Hearing is grossly intact. Nares grossly patent and without discharge. Mucous membranes moist. NECK: No JVD. Patient moves neck without restriction. CARDIO: Rhythm regular. Normal rate. No murmur, rub, or gallop. Pulses equal bilaterally in the upper and lower extremity. No lower extremity edema. PULM: Lungs clear to auscultation in all tolbert. No wheezes, rales, or rhonchi. No conversational dyspnea. No splinting, stridor, or accessory muscle use. GI/: Abdomen is soft. Mild generalized tenderness. No rebound or guarding. Normoactive bowel sounds. EXTREMITIES: Symmetric muscle bulk. No joint swelling. No clubbing, cyanosis, or deformity. SKIN: Warm and dry. Normal turgor. No rash or lesions appreciated. PSYCH: Mood, affect, and interaction is appropriate to the setting. Constitutional Vital Signs, click to edit/add: Last Vital Signs Temp 97.7 F 02/26/25 06:29 Pulse 84 02/26/25 06:29 Resp 17 02/26/25 06:29 BP 147/90 H 02/26/25 06:29 Pulse Ox 98 02/26/25 06:29 O2 Del Method Room Air 02/26/25 06:29 Course Vital Signs Vital signs: Vital Signs Temperature 97.7 F 02/26/25 06:29 Pulse Rate 84 02/26/25 06:29 Respiratory Rate 17 02/26/25 06:29 Blood Pressure 147/90 H 02/26/25 06:29 Pulse Oximetry 98 02/26/25 06:29 Oxygen Delivery Method Room Air 02/26/25 06:29 Temperature 97.7 F 02/26/25 06:29 Pulse Rate 84 02/26/25 06:29 Respiratory Rate 17 02/26/25 06:29 Blood Pressure 147/90 H 02/26/25 06:29 Pulse Oximetry 98 02/26/25 06:29 Oxygen Delivery Method Room Air 02/26/25 06:29 Medical Decision Making [facility] Narrative Medical decision making narrative: 45-year-old female to the emergency department with chief complaint of generalized abdominal pain. Vital stable, the patient is afebrile. Mild tenderness on exam. Basic labs, CT scan are ordered. Morphine, Toradol, Zofran ordered for symptom control. Patient agrees with this plan. Care was signed out to Dr. Rivero with results of diagnostic workup and disposition pending. Medical Records Medical records reviewed: Yes I reviewed the patient's medical records Discharge Plan Discharge Patient Disposition: Still a Patient
[2025-02-26 06:58] LABS: Hemoglobin 13.9 g/dL (12.0-16.0); Mean Corpuscular HGB Conc 34.8 g/dL (29.9-35.2); Mean Corpuscular Hemoglobin 30.3 pg (26.7-34.0); Mean Corpuscular Volume 87.1 fL (81.0-99.0); Mean Platelet Volume 9.1 fL (9.5-13.5); Platelet Count 312 10^3/uL (150-450); Red Blood Count 4.59 10^6/uL (4.20-5.40); Red Cell Distribution Width 12.3 % (11.0-15.0); White Blood Count 13.1 10^3/uL (4.0-11.0)
[2025-02-26] MEDS: KETOROLAC TROMETHAMINE 30 MG/ML VIAL 15 MG IVP (06:59)
[2025-02-26] MEDS: MORPHINE SULFATE 2 MG/ML SYRINGE 4 MG IV (06:59)
[2025-02-26] MEDS: ONDANSETRON PF 4 MG/2 ML VIAL IV ×2 (06:59→10:01)
[2025-02-26 07:19] LABS: HCG Qualitative NEGATIVE (NEGATIVE); Internal Control Within Normal Limits
[2025-02-26 07:21] LABS: Alanine Aminotransferase 24 U/L (14-59); Albumin Globulin Ratio 0.9; Albumin Level 3.4 g/dL (3.4-5.0); Alkaline Phosphatase 56 U/L (46-116); Anion Gap 15.7; Aspartate Amino Transferase 13 U/L (15-37); BUN Creatinine Ratio 16.2; Bilirubin Total 0.3 mg/dL (0.2-1.0); Calcium 8.6 mg/dL (8.5-10.1); Chloride 97 mmol/L (98-107); Estimated GFR (African America >60 (>=60 mL/min/1.73m^2); Estimated GFR (Non-African Ame >60 (>=60 mL/min/1.73m^2); Globulin 3.7 g/dL; Glucose 129 mg/dL (74-106); Potassium 3.7 mmol/L (3.5-5.1); Sodium 135 mmol/L (136-145); Total Protein 7.1 g/dL (6.4-8.2); Troponin I High Sensitivity <4.0 pg/mL (4.0-51.3)
[2025-02-26 07:35] LABS: Bilirubin Urine NEGATIVE (NEGATIVE); Blood Urine NEGATIVE (NEGATIVE); Clarity Urine CLEAR (CLEAR); Color Urine LT. YELLOW (YELLOW); Glucose Urine UA NEGATIVE (NEGATIVE); Ketones Urine NEGATIVE (NEGATIVE); Leukocyte Esterase Urine NEGATIVE (NEGATIVE); Nitrite Urine NEGATIVE (NEGATIVE); Protein Urine NEGATIVE (NEG/TRACE); Urobilinogen Urine 0.2 EU/dL (0.2-1.0)
[2025-02-26 07:43] LABS: Bacteria Urine SMALL #/HPF (NONE SEEN); Cast Seen? NONE SEEN #/LPF (NONE SEEN); Crystals Seen? None Seen #/HPF (None Seen); Mucus Urine SMALL (NONE SEEN); RBC Urine 0-2 #/HPF (0-2); Squamous Epithelial Cell Urine MODERATE #/LPF (NONE/RARE); Urine Culture Indicated YES-FRMC; WBC Urine 0-2 #/HPF (NONE SEEN)
[2025-02-26 07:56] LABS: Lymphocytes Absolute Manual 6.28 10^3/uL (1.20-3.80); Monocytes Absolute Manual 0.39 10^3/uL (0.30-0.80); Segmented Neut Absolute Manual 6.41 10^3/uL (1.4-6.5)
[2025-02-26] MEDS: KETOROLAC TROMETHAMINE 30 MG/ML VIAL IVP (10:01)
--- NOTE | 2025-02-26 10:05 | ED.ABDPAIN1 ---
HPI - Abdominal Pain General Chief Complaint: Abdominal Pain Stated Complaint: PAIN IN STOMACH Time Seen by Provider: 02/26/25 06:27 Source: patient Mode of arrival: walk-in Limitations: no limitations History of Present Illness HPI narrative: 45-year-old female presents to the emergency department and was initially seen by Dr. Cedeño and signed out to me after discussing the case with him thoroughly. Please see his full history and physical exam. Related Data Home Medications ?Medication ?Instructions ?Recorded ?Confirmed divalproex 250 mg tablet,delayed 250 mg PO DAILY 04/20/23 02/26/25 release divalproex 500 mg tablet,extended 500 mg PO BID 04/20/23 02/26/25 release 24 hr doxazosin 2 mg tablet 2 mg PO DAILY 04/20/23 02/26/25 ergocalciferol (vitamin D2) 1,250 1,250 mcg PO DAILY 04/20/23 02/26/25 mcg (50,000 unit) capsule ferrous sulfate 325 mg (65 mg 325 mg PO DAILY 04/20/23 02/26/25 iron) tablet (FeroSul) gabapentin 800 mg tablet 800 mg PO TID 04/20/23 02/26/25 metformin 500 mg tablet,extended 500 mg PO DAILY 04/20/23 02/26/25 release 24 hr dulaglutide 3 mg/0.5 mL 3 mg subcut .weekly 03/26/24 02/26/25 subcutaneous pen injector (Trulicity) meloxicam 15 mg tablet 15 mg PO DAILY 03/26/24 02/26/25 multivitamin-ferrous 1 tab PO Q24H 03/26/24 02/26/25 fumarate-folic acid 18 mg-400 mcg tablet (Spectravite Women) sertraline 100 mg tablet 100 mg PO Q24H 03/26/24 02/26/25 simvastatin 20 mg tablet 20 mg PO DAILY 03/26/24 02/26/25 diazepam 10 mg tablet 10 mg PO QPM 11/18/24 02/26/25 melatonin 10 mg capsule 10 mg PO QPM 11/18/24 02/26/25 promethazine 25 mg tablet 25 mg PO BID PRN nausea and 11/18/24 02/26/25 vomiting furosemide 20 mg tablet 20 mg PO DAILY 02/26/25 02/26/25 ondansetron 4 mg disintegrating 4 mg PO Q8H PRN nausea and vomiting 02/26/25 02/26/25 tablet Previous Rx's ?Medication ?Instructions ?Recorded hydrochlorothiazide 12.5 mg tablet 12.5 mg PO DAILY #3 tabs 02/16/25 dicyclomine 10 mg capsule 10 mg PO QID PRN abdominal pain 02/26/25 #20 caps ondansetron 4 mg disintegrating 4 mg PO Q6H PRN nausea and 02/26/25 tablet vomiting #20 tabs Allergies Allergy/AdvReac Type Severity Reaction Status Date / Time metoclopramide (From Reglan) Allergy Intermediate shaking Verified 02/26/25 06:34 amitriptyline Allergy dizzy Verified 02/26/25 06:34 latex Allergy hives Verified 02/26/25 06:34 sulfamethoxazole (From Allergy Hives Verified 02/26/25 06:34 Bactrim) tramadol (From Ultram) Allergy seizures Verified 02/26/25 06:34 trimethoprim (From Bactrim) Allergy Hives Verified 02/26/25 06:34 PFSH PFSH Social History Smoking status: Current every day smoker Little interest or pleasure in doing things: not at all Feeling down, depressed, or hopeless: not at all Exam Constitutional Vital Signs, click to edit/add: Last Vital Signs Temp 97.7 F 02/26/25 06:29 Pulse 84 02/26/25 06:29 Resp 17 02/26/25 06:29 BP 147/90 H 02/26/25 06:29 Pulse Ox 98 02/26/25 06:29 O2 Del Method Room Air 02/26/25 06:29 Course Vital Signs Vital signs: Vital Signs Temperature 97.7 F 02/26/25 06:29 Pulse Rate 84 02/26/25 06:29 Respiratory Rate 17 02/26/25 06:29 Blood Pressure 147/90 H 02/26/25 06:29 Pulse Oximetry 98 02/26/25 06:29 Oxygen Delivery Method Room Air 02/26/25 06:29 Temperature 97.7 F 02/26/25 06:29 Pulse Rate 84 02/26/25 06:29 Respiratory Rate 17 02/26/25 06:29 Blood Pressure 147/90 H 02/26/25 06:29 Pulse Oximetry 98 02/26/25 06:29 Oxygen Delivery Method Room Air 02/26/25 06:29 MDM - Abdominal Pain MDM Narrative Medical decision making narrative: Workup including CT of the abdomen is negative. Findings are discussed with the patient and her and she is discharged home on Zofran and Bentyl. Follow-up with PCP. Treatment diagnosis and follow-up were discussed thoroughly. Differential Diagnosis Differential diagnosis: Likely abdominal pain, calculus of kidney, constipation, diverticulitis, gastroenteritis, pancreatitis and small bowel obstruction Lab Data Attestation: I reviewed the patient's lab results. Labs: Lab Results 02/26/25 02/26/25 Range/Units 06:51 07:00 WBC 13.1 H (4.0-11.0) 10^3/uL RBC 4.59 (4.20-5.40) 10^6/uL Hgb 13.9 (12.0-16.0) g/dL Hct 40.0 (36.0-48.0) % MCV 87.1 (81.0-99.0) fL MCH 30.3 (26.7-34.0) pg MCHC 34.8 (29.9-35.2) g/dL RDW 12.3 (11.0-15.0) % Plt Count 312 (150-450) 10^3/uL MPV 9.1 L (9.5-13.5) fL Seg Neuts % (Manual) 49.0 (43.0-75.0) Lymphocytes % (Manual) 48.0 (20.5-60.0) % Monocytes % (Manual) 3.0 (1.7-12.0) % Eosinophils % (Manual) 0.0 L (0.9-7.0) % Basophils % (Manual) 0.0 L (0.2-2.0) % Neutrophils # (Manual) 6.41 (1.4-6.5) 10^3/uL Lymphocytes # (Manual) 6.28 H (1.20-3.80) 10^3/uL Monocytes # (Manual) 0.39 (0.30-0.80) 10^3/uL Eosinophils # (Manual) 0.00 (0.00-0.70) 10^3/uL Basophils # (Manual) 0.00 (0.00-0.10) 10^3/uL Sodium 135 L (136-145) mmol/L Potassium 3.7 (3.5-5.1) mmol/L Chloride 97 L (98-107) mmol/L Carbon Dioxide 26.0 (21.0-32.0) mmol/L Anion Gap 15.7 BUN 11.0 (7.0-18.0) mg/dL Creatinine 0.68 (0.55-1.02) mg/dL Est GFR ( Amer) >60 (>=60 mL/min/1.73m^2) Est GFR (Non-Af Amer) >60 (>=60 mL/min/1.73m^2) BUN/Creatinine Ratio 16.2 Glucose 129 H (74-106) mg/dL Calcium 8.6 (8.5-10.1) mg/dL Total Bilirubin 0.3 (0.2-1.0) mg/dL AST 13 L (15-37) U/L ALT 24 (14-59) U/L Alkaline Phosphatase 56 (46-116) U/L Troponin I High Sens <4.0 L (4.0-51.3) pg/mL Total Protein 7.1 (6.4-8.2) g/dL Albumin 3.4 (3.4-5.0) g/dL Globulin 3.7 g/dL Albumin/Globulin Ratio 0.9 Lipase 31.0 (16.0-77.0) U/L Serum HCG, Qual Negative (NEGATIVE) Urine Color Lt. yellow (YELLOW) Urine Clarity Clear (CLEAR) Urine pH 6.0 (5.0-9.0) Ur Specific [place] 1.020 (1.005-1.025) Urine Protein Negative (NEG/TRACE) mg/dL Urine Glucose (UA) Negative (NEGATIVE) mg/dL Urine Ketones Negative (NEGATIVE) mg/dL Urine Occult Blood Negative (NEGATIVE) Urine Nitrite Negative (NEGATIVE) Urine Bilirubin Negative (NEGATIVE) Urine Urobilinogen 0.2 (0.2-1.0) EU/dL Ur Leukocyte Esterase Negative (NEGATIVE) Urine RBC 0-2 (0-2) #/HPF Urine WBC 0-2 A (NONE SEEN) #/HPF Ur Squamous Epith Cells Moderate A (NONE/RARE) #/LPF Urine Crystals None seen (None Seen) #/HPF Urine Bacteria Small A (NONE SEEN) #/HPF Urine Casts None seen (NONE SEEN) #/LPF Urine Mucus Small A (NONE SEEN) Urine Yeast Seen A (NONE SEEN) Ur Culture Indicated? [place] [place] CT scan - abdomen: Radiologist's impression: No acute abnormality seen Discharge Plan Discharge Chief Complaint: Abdominal Pain Clinical Impression: Abdominal pain Patient Disposition: Home, Self-Care Time of Disposition Decision: 10:04 Condition: Good Mode of Transportation: Private Vehicle Prescriptions / Home Meds: New ondansetron 4 mg tablet,disintegrating 4 mg PO Q6H PRN (Reason: nausea and vomiting) Qty: 20 0RF dicyclomine 10 mg capsule 10 mg PO QID PRN (Reason: abdominal pain) Qty: 20 0RF No Action Trulicity 3 mg/0.5 mL pen injector 3 mg SUBCUT .weekly meloxicam 15 mg tablet 15 mg PO DAILY Spectravite Women 18-400 mg-mcg tablet 1 tab PO Q24H sertraline 100 mg tablet 100 mg PO Q24H simvastatin 20 mg tablet 20 mg PO DAILY furosemide 20 mg tablet 20 mg PO DAILY ondansetron 4 mg tablet,disintegrating 4 mg PO Q8H PRN (Reason: nausea and vomiting) divalproex 250 mg tablet,delayed release (DR/EC) 250 mg PO DAILY divalproex 500 mg tablet extended release 24 hr 500 mg PO BID doxazosin 2 mg tablet 2 mg PO DAILY ergocalciferol (vitamin D2) 1,250 mcg (50,000 unit) capsule 1,250 mcg PO DAILY ferrous sulfate [FeroSul] 325 mg (65 mg iron) tablet 325 mg PO DAILY gabapentin 800 mg tablet 800 mg PO TID metformin 500 mg tablet extended release 24 hr 500 mg PO DAILY diazepam 10 mg tablet 10 mg PO QPM melatonin 10 mg capsule 10 mg PO QPM promethazine 25 mg tablet 25 mg PO BID PRN (Reason: nausea and vomiting) hydrochlorothiazide 12.5 mg tablet 12.5 mg PO DAILY Qty: 3 0RF Print Language: Bengali Instructions: Abdominal Pain (ED) Referrals: [facility] [Primary Care Provider] - 1 week
== END 2025-02-26 10:16 | disposition home or self-care (01) ==
PROVIDERS: Student in an Organized Health Care Education/Training Program; Emergency Provider Emergency Medicine
DX: R10.84 Generalized abdominal pain (principal); Z90.49 Acquired absence of other specified parts of digestive tract; F17.200 Nicotine dependence, unspecified, uncomplicated
CPT/HCPCS: 36415; 74177; 80053; 81001; 83690; 84484; 84703; 85007; 85027; 87086; 96374; 96375; 96376; 99284; J1885; J2270; J2405; Q9967

== ENCOUNTER 2025-02-28 19:36 | Emergency (ER) | payer OTHER, SELFPAY ==
[2025-02-28 19:44] VITALS: BP 110/90; PULSE 112; TEMP 36.9; O2SAT 97; BMI 25.7
--- NOTE | 2025-02-28 20:03 | ED.NAVMDI1 ---
HPI - Nausea/Vomiting/Diarrhea General Chief complaint: Nausea/Vomiting/Diarrhea Stated complaint: STOMACH ISSUES, NAUSEA, LIGHTHEADED Time Seen by Provider: 02/28/25 19:47 Source: patient Mode of arrival: walk-in Limitations: no limitations History of Present Illness HPI Narrative: patient was seen here 02/26/25 for abdominal pain. Contrast abdominal CT neg. Patient discharged home on bentyl and zofran. states she did not take Bentyl because she also takes potassium. She was advised not to take metformin for a couple of days after IV contrast but she took the Metformin. She now presents complaining of recurrent vomiting and diarrhea. Nonbloody. Last episode of diarrhea about 1/2 hour ago. No fever or urinary symptoms Related Data Home Medications ?Medication ?Instructions ?Recorded ?Confirmed divalproex 250 mg tablet,delayed 250 mg PO DAILY 04/20/23 02/28/25 release divalproex 500 mg tablet,extended 500 mg PO BID 04/20/23 02/28/25 release 24 hr doxazosin 2 mg tablet 2 mg PO DAILY 04/20/23 02/28/25 ergocalciferol (vitamin D2) 1,250 1,250 mcg PO DAILY 04/20/23 02/28/25 mcg (50,000 unit) capsule ferrous sulfate 325 mg (65 mg 325 mg PO DAILY 04/20/23 02/28/25 iron) tablet (FeroSul) gabapentin 800 mg tablet 800 mg PO TID 04/20/23 02/28/25 metformin 500 mg tablet,extended 500 mg PO DAILY 04/20/23 02/28/25 release 24 hr dulaglutide 3 mg/0.5 mL 3 mg subcut .weekly 03/26/24 02/28/25 subcutaneous pen injector (Trulicity) meloxicam 15 mg tablet 15 mg PO DAILY 03/26/24 02/28/25 multivitamin-ferrous 1 tab PO Q24H 03/26/24 02/28/25 fumarate-folic acid 18 mg-400 mcg tablet (Spectravite Women) sertraline 100 mg tablet 100 mg PO Q24H 03/26/24 02/28/25 simvastatin 20 mg tablet 20 mg PO DAILY 03/26/24 02/28/25 diazepam 10 mg tablet 10 mg PO QPM 11/18/24 02/28/25 melatonin 10 mg capsule 10 mg PO QPM 11/18/24 02/28/25 promethazine 25 mg tablet 25 mg PO BID PRN nausea and 11/18/24 02/28/25 vomiting furosemide 20 mg tablet 20 mg PO DAILY 02/26/25 02/28/25 ondansetron 4 mg disintegrating 4 mg PO Q8H PRN nausea and vomiting 02/26/25 02/28/25 tablet Previous Rx's ?Medication ?Instructions ?Recorded hydrochlorothiazide 12.5 mg tablet 12.5 mg PO DAILY #3 tabs 02/16/25 dicyclomine 10 mg capsule 10 mg PO QID PRN abdominal pain 02/26/25 #20 caps ondansetron 4 mg disintegrating 4 mg PO Q6H PRN nausea and 02/26/25 tablet vomiting #20 tabs Allergies Allergy/AdvReac Type Severity Reaction Status Date / Time metoclopramide (From Reglan) Allergy Intermediate shaking Verified 02/26/25 06:34 amitriptyline Allergy dizzy Verified 02/26/25 06:34 latex Allergy hives Verified 02/26/25 06:34 sulfamethoxazole (From Allergy Hives Verified 02/26/25 06:34 Bactrim) tramadol (From Ultram) Allergy seizures Verified 02/26/25 06:34 trimethoprim (From Bactrim) Allergy Hives Verified 02/26/25 06:34 Review of Systems ROS Status of ROS 10 or more systems reviewed and unremarkable except as noted in history and below [facility] Social History Smoking status: Current every day smoker Little interest or pleasure in doing things: not at all Feeling down, depressed, or hopeless: not at all Exam Constitutional Vital Signs, click to edit/add: Last Vital Signs Temp 98.5 F 02/28/25 19:44 Pulse 100 H 02/28/25 22:36 Resp 20 03/01/25 00:26 BP 139/92 H 03/01/25 00:26 Pulse Ox 95 02/28/25 22:36 Common normals: no apparent distress, average body habitus, oriented x3, no limitations, healthy appearing, alert and well nourished [facility] Common normals: normocephalic and head/scalp atraumatic Eye Common normals: EOMs intact bilaterally Respiratory Common normals: normal respiratory effort, no retractions, no use of accessory muscles and clear to auscultation bilaterally Cardio Common normals: S1 normal heart sound Rate: tachycardic GI Common normals: Normal to inspection, nondistended, normoactive bowel sounds present and soft to palpation Other: mild epigastric and suprapubic tenderness. No guarding or rebound Extremity Common normals: normal to inspection and full ROM Neuro Common normals: oriented x3, CN's II-XII intact bilaterally, moves all extremities and no focal motor deficits Psych Appearance: grossly normal Course Vital Signs Vital signs: Vital Signs Temperature 98.5 F 02/28/25 19:44 Pulse Rate 112 H 02/28/25 19:44 Respiratory Rate 20 02/28/25 19:44 Blood Pressure 110/90 02/28/25 19:44 Pulse Oximetry 97 02/28/25 19:44 Temperature 98.5 F 02/28/25 19:44 Pulse Rate 100 H 02/28/25 22:36 Respiratory Rate 20 03/01/25 00:26 Blood Pressure 139/92 H 03/01/25 00:26 Pulse Oximetry 95 02/28/25 22:36 MDM - Nausea/Vomiting/Diarrhea MDM Narrative Medical decision making narrative: patient presents with abdominal pain and vomiting /diarrhea. She was concerned her GI symptoms were related to her taking metformin after receiving IV contrast for abdominal CT 02/25/25. Exam with mild epigastric /suprapubic tenderness. UA neg for infection. GFR >60 and mild elevation of lactic that resolved after hydration. Patient treated with compazine, benadryl and fentanyl and is feeling better. Discharged home to follow up with her doctor for recheck Lab Data Labs: Lab Results 02/28/25 02/28/25 02/28/25 Range/Units 20:40 23:20 23:55 WBC 13.7 H (4.0-11.0) 10^3/uL RBC 5.30 (4.20-5.40) 10^6/uL Hgb 15.8 (12.0-16.0) g/dL Hct 46.8 (36.0-48.0) % MCV 88.3 (81.0-99.0) fL MCH 29.8 (26.7-34.0) pg MCHC 33.8 (29.9-35.2) g/dL RDW 12.4 (11.0-15.0) % Plt Count 365 (150-450) 10^3/uL MPV 9.5 (9.5-13.5) fL Neut % (Auto) 80.1 H (43.0-75.0) % Lymph % (Auto) 13.7 L (20.5-60.0) % [place] % (Auto) 4.7 (1.7-12.0) % Eos % (Auto) 0.5 L (0.9-7.0) % Baso % (Auto) 0.4 (0.2-2.0) % Neut # (Auto) 11.0 H (1.4-6.5) 10^3/uL Lymph # (Auto) 1.9 (1.2-3.8) 10^3/uL [place] # (Auto) 0.7 (0.3-0.8) 10^3/uL Eos # (Auto) 0.1 (0.0-0.7) 10^3/uL Baso # (Auto) 0.1 (0.0-0.1) 10^3/uL Abs Immat Gran (auto) 0.08 H (0.00-0.03) 10^3/uL Imm/Tot Granulo (auto) 0.6 H (0.0-0.5) % Sodium 137 (136-145) mmol/L Potassium 4.1 (3.5-5.1) mmol/L Chloride 99 (98-107) mmol/L Carbon Dioxide 25.9 (21.0-32.0) mmol/L Anion Gap 16.2 BUN 10.0 (7.0-18.0) mg/dL Creatinine 0.68 (0.55-1.02) mg/dL Est GFR ( Amer) >60 (>=60 mL/min/1.73m^2) Est GFR (Non-Af Amer) >60 (>=60 mL/min/1.73m^2) BUN/Creatinine Ratio 14.7 Glucose 126 H (74-106) mg/dL Lactate 2.7 H* 1.9 (0.4-2.0) mmol/L Calcium 9.2 (8.5-10.1) mg/dL Total Bilirubin 0.3 (0.2-1.0) mg/dL AST 16 (15-37) U/L ALT 24 (14-59) U/L Alkaline Phosphatase 78 (46-116) U/L Total Protein 8.1 (6.4-8.2) g/dL Albumin 3.8 (3.4-5.0) g/dL Globulin 4.3 g/dL Albumin/Globulin Ratio 0.9 Lipase 22.0 (16.0-77.0) U/L Urine Color Lt. yellow (YELLOW) Urine Clarity Clear (CLEAR) Urine pH 6.0 (5.0-9.0) Ur Specific [place] 1.010 (1.005-1.025) Urine Protein Negative (NEG/TRACE) mg/dL Urine Glucose (UA) Negative (NEGATIVE) mg/dL Urine Ketones Negative (NEGATIVE) mg/dL Urine Occult Blood Negative (NEGATIVE) Urine Nitrite Negative (NEGATIVE) Urine Bilirubin Negative (NEGATIVE) Urine Urobilinogen 0.2 (0.2-1.0) EU/dL Ur Leukocyte Esterase Negative (NEGATIVE) Urine RBC 0-2 (0-2) #/HPF Urine WBC 0-2 A (NONE SEEN) #/HPF Ur Squamous Epith Cells Few A (NONE/RARE) #/LPF Urine Crystals None seen (None Seen) #/HPF Urine Bacteria Trace A (NONE SEEN) #/HPF Urine Casts None seen (NONE SEEN) #/LPF Urine Mucus None seen (NONE SEEN) Urine Yeast Seen A (NONE SEEN) Ur Culture Indicated? No Discharge Plan Discharge Chief Complaint: Nausea/Vomiting/Diarrhea Clinical Impression: Abdominal pain, Gastroenteritis Patient Disposition: Home, Self-Care Prescriptions / Home Meds: No Action Trulicity 3 mg/0.5 mL pen injector 3 mg SUBCUT .weekly meloxicam 15 mg tablet 15 mg PO DAILY Spectravite Women 18-400 mg-mcg tablet 1 tab PO Q24H sertraline 100 mg tablet 100 mg PO Q24H simvastatin 20 mg tablet 20 mg PO DAILY furosemide 20 mg tablet 20 mg PO DAILY ondansetron 4 mg tablet,disintegrating 4 mg PO Q8H PRN (Reason: nausea and vomiting) ondansetron 4 mg tablet,disintegrating 4 mg PO Q6H PRN (Reason: nausea and vomiting) Qty: 20 0RF dicyclomine 10 mg capsule 10 mg PO QID PRN (Reason: abdominal pain) Qty: 20 0RF divalproex 250 mg tablet,delayed release (DR/EC) 250 mg PO DAILY divalproex 500 mg tablet extended release 24 hr 500 mg PO BID doxazosin 2 mg tablet 2 mg PO DAILY ergocalciferol (vitamin D2) 1,250 mcg (50,000 unit) capsule 1,250 mcg PO DAILY ferrous sulfate [FeroSul] 325 mg (65 mg iron) tablet 325 mg PO DAILY gabapentin 800 mg tablet 800 mg PO TID metformin 500 mg tablet extended release 24 hr 500 mg PO DAILY diazepam 10 mg tablet 10 mg PO QPM melatonin 10 mg capsule 10 mg PO QPM promethazine 25 mg tablet 25 mg PO BID PRN (Reason: nausea and vomiting) hydrochlorothiazide 12.5 mg tablet 12.5 mg PO DAILY Qty: 3 0RF Print Language: Romansh Instructions: Gastroenteritis (ED), Abdominal Pain (ED) Additional Instructions: hold Trulicity for now as discussed. Follow up with your doctor in the next 2-3 days Referrals: [facility] [Primary Care Provider] - 1 week
[2025-02-28] MEDS: 0.9 % SODIUM CHLORIDE 1,000 ML 999 ML IV ×2 (20:49→22:30)
[2025-02-28] MEDS: PROCHLORPERAZINE 10 MG/2 ML VIAL IV (20:49)
[2025-02-28] MEDS: DIPHENHYDRAMINE HCL 50 MG/ML VIAL IVP (20:49)
[2025-02-28 21:01] LABS: Basophils Absolute Auto 0.1 10^3/uL (0.0-0.1); Basophils Percent Auto 0.4 % (0.2-2.0); Eosinophils Absolute Auto 0.1 10^3/uL (0.0-0.7); Eosinophils Percent Auto 0.5 % (0.9-7.0); Hematocrit 46.8 % (36.0-48.0); Hemoglobin 15.8 g/dL (12.0-16.0); Immature Granulocytes Abs Auto 0.08 10^3/uL (0.00-0.03); Immature Granulocytes Pct Auto 0.6 % (0.0-0.5); Lymphocytes Absolute Auto 1.9 10^3/uL (1.2-3.8); Lymphocytes Percent Auto 13.7 % (20.5-60.0); Mean Corpuscular HGB Conc 33.8 g/dL (29.9-35.2); Mean Corpuscular Hemoglobin 29.8 pg (26.7-34.0); Mean Corpuscular Volume 88.3 fL (81.0-99.0); Mean Platelet Volume 9.5 fL (9.5-13.5); Monocytes Absolute Auto 0.7 10^3/uL (0.3-0.8); Monocytes Percent Auto 4.7 % (1.7-12.0); Neutrophils Percent Auto 80.1 % (43.0-75.0); Platelet Count 365 10^3/uL (150-450); Red Cell Distribution Width 12.4 % (11.0-15.0); White Blood Count 13.7 10^3/uL (4.0-11.0)
[2025-02-28 21:35] LABS: Alanine Aminotransferase 24 U/L (14-59); Albumin Globulin Ratio 0.9; Albumin Level 3.8 g/dL (3.4-5.0); Alkaline Phosphatase 78 U/L (46-116); Anion Gap 16.2; Aspartate Amino Transferase 16 U/L (15-37); BUN Creatinine Ratio 14.7; Bilirubin Total 0.3 mg/dL (0.2-1.0); Calcium 9.2 mg/dL (8.5-10.1); Carbon Dioxide 25.9 mmol/L (21.0-32.0); Chloride 99 mmol/L (98-107); Estimated GFR (African America >60 (>=60 mL/min/1.73m^2); Estimated GFR (Non-African Ame >60 (>=60 mL/min/1.73m^2); Globulin 4.3 g/dL; Glucose 126 mg/dL (74-106); Potassium 4.1 mmol/L (3.5-5.1); Sodium 137 mmol/L (136-145); Total Protein 8.1 g/dL (6.4-8.2)
[2025-02-28 21:42] LABS: Lactate/Lactic Acid 2.7 mmol/L (0.4-2.0)
[2025-02-28 22:36] VITALS: BP 158/92; PULSE 100; O2SAT 95
[2025-02-28 23:34] LABS: Bilirubin Urine NEGATIVE (NEGATIVE); Blood Urine NEGATIVE (NEGATIVE); Clarity Urine CLEAR (CLEAR); Color Urine LT. YELLOW (YELLOW); Glucose Urine UA NEGATIVE (NEGATIVE); Ketones Urine NEGATIVE (NEGATIVE); Leukocyte Esterase Urine NEGATIVE (NEGATIVE); Nitrite Urine NEGATIVE (NEGATIVE); Protein Urine NEGATIVE (NEG/TRACE); Urobilinogen Urine 0.2 EU/dL (0.2-1.0)
[2025-02-28 23:41] LABS: Bacteria Urine TRACE #/HPF (NONE SEEN); Cast Seen? NONE SEEN #/LPF (NONE SEEN); Crystals Seen? None Seen #/HPF (None Seen); Mucus Urine NONE SEEN (NONE SEEN); RBC Urine 0-2 #/HPF (0-2); Squamous Epithelial Cell Urine FEW #/LPF (NONE/RARE); Urine Culture Indicated NO; WBC Urine 0-2 #/HPF (NONE SEEN)
[2025-03-01] MEDS: ONDANSETRON PF 4 MG/2 ML VIAL IV (00:20)
[2025-03-01 00:26] VITALS: BP 139/92
[2025-03-01 00:37] LABS: Lactate/Lactic Acid 1.9 mmol/L (0.4-2.0)
== END 2025-03-01 01:06 | disposition home or self-care (01) ==
PROVIDERS: Emergency Provider Internal Medicine
DX: R10.9 Unspecified abdominal pain (principal); K52.9 Noninfective gastroenteritis and colitis, unspecified; Z79.84 Long term (current) use of oral hypoglycemic drugs; F17.200 Nicotine dependence, unspecified, uncomplicated
CPT/HCPCS: 36415; 80053; 81001; 83605; 83690; 85025; 96361; 96374; 96375; 99285; J0780; J1200; J2405

== ENCOUNTER 2025-05-05 10:56 | Emergency (ER) | payer OTHER, SELFPAY ==
--- OUTSIDE RECORDS SUMMARY | 2025-05-05 11:03 | XMS_ITS | CCD ---
Author Organization [facility] Care Team Providers Care Dental Manager Name Role Phone Piero Pettita Cat Primary Care Provider Wilver Ajit E Attending Provider [phone] [facility] Primary Care Provider [facility] Primary Care Provider Wilver Ajit E Attending Provider [phone] Kyler Miramontes Unavailable Girish Callaway Unavailable [facility] Primary Care Prov ider CHRISTINA Bergeron Emergency Provider Wilver COACH BUILDER-C Ajit Shelton Attending Provider DO Rod Alvarado Emergency Provider [phone] MD Jasmin Velázquez Attending Provider [facility] Primary Care Provider [phone] MD Jasmin Velázquez Attending Provider [phone] [facility] Primary Care Provider PIERO PETTITA Cat Primary Care Physician [phone] [facility] Primary Care Prov ider MD Kyler Miramontes Attending Provider OLEG Pettit Attending Provider [facility] Primary Care Prov ider MD Kyler Miramontes Attending Provider MEREDITH Pettit-Jorge Shelton Attending Provider MARKER ., DR SEPULVEDA [...] Care Provider UnavailMD Kyler Pulido Attending Provider [phone] [facility], . Primary Care Provider Spasic, COACH BUILDER-C Ajit E Primary Care Provider [phone] Spasic, COACH BUILDER-C Ajit E Attending Provider [phone] [facility] Primary Care Prov ider Visci, DO Ferguson Attending Provider Spasic, COACH BUILDER-C Ajit E Primary Care Provider [phone] Visci, DO Carri Attending Provider Spasic, COACH BUILDER-C Ajit E Primary Care Provider [phone] Visci, DO Ferguson Attending Provider [phone] MD Beltran Velez Admit Provider JULIANA Calderon Other Provider Unavailable JULIANA Danielle Other Provider Unavailable JULIANA Brar Other Provider Unavailable JULIANA Flor Other Provider Unavailable JULIANA Manzano Other Provider Unavailable JULIANA Sun Other Provider Unavailable Adal, INTELLIGENCE ANALYSTYaw Ramirez Other Provider [phone] DO Evan Jackson Other Provider MD Familia Blair Other Provider DO Brandon Dowling Other Provider MD Florin Cruz Other Provider [phone] MD Vivi Holloway Other Provider CHRISTINA Lopez Other Provider [phone] MD Lilly Alexandre Other Provider MD Rangel [...] Bola Sullivan Other Provider DO Lazaro Dunne M Other Provider CHRISTINA Nava Other Provider DO Salazar Cabrera Attending Provider DO Salazar Cabrera Other Provider MD Naila Lema Other Provider CHRISTINA Munoz Other Provider CHRISTINA Lundy Other Provider MD Rosanna Grullon Other Provider MD Girish Tolnetino Other Provider CHRISTINA Holguin Other Provider DO Mabel Lackey Other Provider JULIANA Noel Other Provider Unavailable MD Teo Taylor Other Provider DO Diego Noble Emergency Provider [phone] CARRI MANUEL Attending Unavailable Spasic, COACH BUILDER-C Ajit E Attending Provider Spasic, COACH BUILDER-C Ajit E Attending Provider Spasic, COACH BUILDER-C Ajit E Primary Care Provider MD Kyler Miramontes Attending Provider [phone] DO Abi Sunshine Attending Provider Spasic, COACH BUILDER-C Ajit E Primary Care Provider Spasic, COACH BUILDER-C Ajit E Attending Provider Spasic, COACH BUILDER-C Ajit E Primary Care Provider Spasic, COACH BUILDER-C Ajit E Primary Care Provider Ambrose Cedeño Attending Unavailable EVELYN Ferrari Emergency Provider Spasic COACH BUILDER-C, Ajit E Primary Care Provider Praveen Rivero DO Attending Provider [phone] Laura Marte Attending Unavailable Ambrose Cedeño Attending Unavailable Anisa Chong DO Attending Provider Joshua SILVEIRA Attending Unavailable SPASIC, AJIT E Referring Unavailable Laura Marte Attending Unavailable Spasic COACH BUILDER-C, Ajit E Attending Provider Praveen Bermudez DO Attending Provider [phone] NON STAFF Attending Provider Unavailable Spasic COACH BUILDER-C, Ajit E Referring Provider Chilo COACH BUILDER-C, Jane Shelton Attending Provider Spasijorge COACH BUILDER-C, Ajit E Referring Provider Terence BALDERAS, Enrique Ballard Attending Provider [phone] Cb Raines MD Attending Provider Chilo HARPER-C, Jane Shelton Attending Provider Leodan Patricia MD Attending Provider [phone] Terence BALDERAS, Enrique Ballard Referring Provider Spasic COACH BUILDER-C, Ajit E Primary Care Provider Chilo HARPER-CJane Attending Provider Spasic, Ajit E Admitting Unavailable Spasic, [...] Ly, Abi L Attending Unavailable Ly, Abi Ackerman Admitting Unavailable Spasic, Ajit E Primary Care Unavailable Jono Ferrari Attending Unavailable Jono Ferrari Admitting Unavailable Spasic, Ajit E Primary Care Unavailable Praveen Rivero Attending Unavailable Praveen Rivero Admitting Unavailable Spasic, Ajit E Primary Care Unavailable Marker, Anisa Abdi Attending Unavailable Marker, Anisa Abdi Admitting Unavailable Pay, Praveen Attending Unavailable Pay, Praveen Admitting Unavailable NON STAFF Attending Unavailable NON STAFF Admitting Unavailable Spasic, Ajit E Admitting Unavailable Spasic, Ajit E Attending Unavailable Spasic, Ajit E Primary Care Unavailable Spasic, Ajit E Attending Unavailable Spasic, Ajit E Admitting Unavailable Spasic, Ajit E Primary Care Unavailable Leodan Patricia Attending Unavailable Leodan Patricia Admitting Unavailable Spasic, Ajit E Referring Unavailable Spasic, Ajit E Primary Care Unavailable Jane Woo Attending Unavailable Jane Woo Admitting Unavailable Spasic, Ajit Cat Primary Care Unavailable Spasic, Ajit E Admitting Unavailable Spasic, Ajit E Attending Unavailable Spasic, Ajit E Admitting Unavailable Spasic, Ajit E Attending Unavailable Unavailable Unavailable Unavailable Allergies Allergy Classification Reported Allergen(s) Allergy Type Date of Onset Reaction(s) Facility Opioid Agonists (1 source) traMADol Drug Allergy 09-24-20 Seizure [facility] Serotonin Reuptake Inhibitors (SSRIs) (1 source) Escitalopram Drug Allergy 09-24-20 Difficulty Breathing [facility] (20 sources) Escitalopram; Translations: [escitalopram] Drug Allergy 09-24-20 Difficulty Breathing [facility] (20 sources) traMADol; Translations: [tramadol] Drug Allergy 09-24-20 Seizure, Unknown, seizures [facility] (20 sources) Amitriptyline; Translations: [Amitriptyline] Drug Allergy 05-27-20 [facility] (20 sources) natural latex rubber; Translations: [Latex, Natural Rubber] Allergy to substance 05-27-20 Unknown Reaction, [facility] (20 sources) Sulfamethoxazole; Translations: [sulfamethoxazole] Drug Allergy 05-27-20 [facility] (20 sources) Trimethoprim; Translations: [trimethoprim] Drug Allergy 05-27-20 [facility] (11 sources) Latex; Translations: [latex] Drug allergy Weal (disorder) [facility] (10 sources) Sulfamethoxazole / Trimethoprim; Translations: [sulfamethoxazole-tr imethoprim] Drug Allergy Unknown (qualifier value) [facility] (1 source) Sulfamethoxazole / Trimethoprim Drug Allergy [facility] (1 source) Ultra Juancarlos Gold Drug allergy (disorder) [facility] (20 sources) nonoxynol 9; Translations: [nonoxynol 9] Allergy to substance 09-16-20 [facility] (4 sources) traMADol; Translations: [Ultram] Drug Allergy [facility] Medications Current Medications Medication Drug Class(es) Dates Sig (Normalized) Sig (Original) Tylenol (20 sources) Start: 07-31-2022 Tylenol Oral, Refills(s) 0 Start Date: 07/31/22 Status: Ordered Repeat number: 1 Start: 07-31-2022 Tylenol Oral, Refills(s) 0 Start Date: 07/31/22 Status: Ordered Start: 03-04-2022 take 1 capsule by [facility] twice daily Start: 03-04-2022 Acetaminophen (Tylenol) 325 mg Capsule [...] needed Orally every 4 hrs PRN Active ciprofloxacin 500 mg oral tablet (20 sources) Quinolone Antimicrobial Start: 01-24-2025 End: 01-27-2025 take 1 tablet by mouth every twelve hours Cipro 500 mg Tab 500 mg = 1 tab(s), Oral, q12hr, X 3 day(s), # 6 tab(s), Refills(s) 0, Pharmacy: [facility]/pharmacy #[id number], 165, cm, 01/24/25 11:37:00 EDT, Height/Length [...] 1 Start: 03-04-2022 take 1 tablet by mouth twice d aily dicyclomine hydrochloride 10 mg oral capsule (20 sources) Anticholinergic Start: 03-02-2024 take 1 capsule by mouth twice daily as needed Start: 10-09-2023 End: 03-02-2024 take 1 capsule [...] day uses as needed for IBS Active 0.5 ml dulaglutide 3 mg/ml a uto-injector (20 sources) GLP-1 Receptor Agonist Start: 03-13-2025 Start: 04-14-2023 End: 03-13-2025 Dulaglutide (Trulicity) 1.5 mg/0.5 mL pen injector Discontinued 1.5 MG SUBCUT every week April 14, 2023 12:00am March 13, 2025 8:36am Wednesday Trulicity Active ergocalciferol 1.25 mg oral capsule (20 sources) Provitamin D2 Compound Start: 06-30-2023 Start: 06-30-2023 take 37417 [IU] by m outh every week Ergocalciferol (Vitamin D2) Active 49887 UNIT PO every week June 30, 2023 12:00am ferrous sulfate 325 mg oral tablet (20 sources) Start: 07-24-2024 take 1 tablet by saul th once daily Start: 05-18-2022 End: 09-28-2023 take 1 tablet [...] 01/31/2025, # 2 tab(s), Refills(s) 0, Pharmacy: [facility]/pharmacy #[id number], 165, cm, 01/24/25 11:37:00 EDT, Height/Length Dosing, 70.1, kg, 01/24/25 11:37:00 EDT, Weight Dosing Start Date: 01/24/25 Status: Ordered Quantity: 2.0 Unit: tab(s) Repeat number: 1 gabapentin 600 mg oral tablet (20 sources) Anti-epileptic Agent Start: 03-14-2025 Start: 07-31-2022 take 1 mg by mouth t hree times daily gabapentin 800 mg Tab mg tab(s), Oral, TID, Refills(s) 0 Start Date: 07/31/22 Status: Ordered Repeat number: 1 Start: 06-08-2017 take 1 mg by mouth t hree times daily gabapentin 600 mg Tab mg tab(s), Oral, TID, Refills(s) 0 Start Date: 10/27/19 Status: Ordered Repeat number: 1 Start: 06-08-2017 End: 03-14-2025 Gabapentin 600 mg Tablet Dis continued 800 MG PO Four times daily June 08, 2017 12:00am March 14, 2025 8:56am Start: 06-08-2017 take 800 mg by mouth four times daily Gabapentin Active 800 MG PO Four times daily June 08, 2017 12:00am Start: 06-08-2017 take 800 mg by mouth three times daily Gabapentin Active 800 MG PO Three times daily June 08, 2017 12:00am LORazepam 0.5 mg oral tablet (20 sources) Benzodiazepine Start: 05-18-2022 take 1 tablet by saul th once daily as needed for anxiety Start: 05-18-2022 Lorazepam Acti ve 0.5 MG [...] Start: 10-27-2019 take 2 tablets by mo [facility] three times daily LORazepam 0.5 mg Tab mg tab(s), Oral, TID, Refills(s) 0 Start Date: 10/27/19 Status: Ordered Repeat number: 1 take 1 tablet by saul th every six hours LORazepam 0.5 MG 1 tablet as needed Orally every 6 hrs for panic attacks, as needed; three to four times per month Active meclizine hydrochloride 25 m g oral tablet (20 sources) Antiemetic Start: 05-18-2022 Start: 05-18-2022 Meclizine Acti ve 25 MG PO Daily May 18, 2022 12:00am every 6-8 hours prn. 1/2 to 1 Start: 05-18-2022 Meclizine Acti ve 25 MG PO Daily May 18, 2022 12:00am every 6-8 hours prn. 2 to 1 Start: 05-18-2022 Meclizine Acti ve 25 MG PO Daily May 18, 2022 12:00am every 6-8 hours prn. 2 to Start: 05-18-2022 Meclizine Acti ve 25 MG PO Daily May 18, 2022 12:00am every 6-8 hours prn. 2 to 1 Start: 05-18-2022 Meclizine Acti ve 25 MG PO Daily May 18, 2022 12:00am every 6-8 hours prn. 10/05 to 1 melatonin 10 mg oral tablet (20 sources) Start: 03-04-2022 take 1 tablet by saul th once daily at bedtime Start: 10-27-2019 take 1 tablet by saul [...] Nonsteroidal Anti-inflammatory Drug Start: 05-27-2022 take 1 tablet by mouth once daily in the morning Start: 05-27-2022 take 15 mg by mouth [...] 12:00am Start: 06-08-2017 End: 05-18-2022 take 1 tablet by mouth once daily Meloxicam 15 mg Tablet Discontinued 15 MG PO Daily June 08, 2017 12:00am May 18, 2022 11:27am metFORMIN hydrochloride 500 mg oral tablet (20 sources) Biguanide Start: 05-18-2022 take 1 tablet by saul th twice daily Start: 05-18-2022 take 500 mg by mouth [...] Daily June 08, 2017 12:00am Multivitamin Tablet (8 sources) Start: 06-08-2017 take 1 tablet by mouth once daily in the morning Multivitamin Tablet Active 1 TAB PO Every morning June 08, 2017 12:00am Complies with drug therapy Start: 06-08-2017 take 1 tablet by saul th once daily in the morning Start: 06-08-2017 take 1 tablet by saul th once daily in the morning Multivitamin Tablet Active 1 TAB PO Every morning June 08, 2017 12:00am oxybutynin chloride 5 mg oral tablet (4 sources) Cholinergic Muscarinic Antagonist Start: 03-13-2025 take 1 tablet by mouth twice daily phenazopyridine hydrochloride 100 mg oral tablet (1 source) Start: 01-24-2025 End: 01-31-2025 take 1 tablet by mouth three times daily Pyridium 100 mg Tab 100 mg = 1 tab(s), Oral, TID, X 7 day(s), # 21 tab(s), Refills(s) 0, Pharmacy: [facility]/pharmacy #[id number], 165, cm, 01/24/25 11:37:00 EDT, Height/Length Dosing, 70.1, kg, 01/24/25 11:37:00 EDT, Weight Dosing Start Date: 01/24/25 Stop Date: 01/31/25 Status: Ordered Quantity: 21.0 Unit: tab(s) Repeat number: 1 promethazine hydrochloride 25 mg oral tablet (20 sources) Phenothiazine Start: 03-13-2025 take 1 tablet by mouth every twelve hours as needed Start: 03-13-2018 End: 04-24-2018 take 1 tablet by mouth every four hours at dinner for nausea and vomiting Promethazine 12.5 mg tablet Discontinued 12.5 MG PO Q6H as needed for nausea and vomiting March 13, 2018 12:00am April 24, 2018 8:47pm 3 doses/day;do not give 3rd dose after evening meal or w/in 4hr of bedtime sertraline 50 mg oral tablet (20 sources) Serotonin Reuptake Inhibitor Start: 10-09-2023 End: 03-13-2025 take 3 tablets by mouth once daily Start: 10-09-2023 take 150 mg by mouth [...] by saul th once daily at bedtime Start: 05-18-2022 take 20 mg by mouth [...] 1 Start: 06-08-2017 take 2 tablets by [facility] every eight hours as needed for muscle spasms Start: 06-08-2017 take 8 mg by mouth e very eight hours Tizanidine Active 8 MG PO Q8H June 08, 2017 12:00am Start: 06-08-2017 take 6 mg by mouth e very eight hours Tizanidine Active 6 MG PO Q8H June 08, 2017 12:00am take 1 capsule by [facility] every eight hours tiZANidine HCl 6 [...] 1 Start: 09-21-2018 take 1 tablet by [facility] once daily Start: 03-13-2018 take 2 tablets by [facility] twice daily Start: 03-13-2018 take 2 tablets by [facility] once daily Divalproex (Depakote) 250 mg [...] Nausea/Vomiting, # 12 tab(s), Refills(s) 0, Pharmacy: [facility]/pharmacy #[id number], 165, cm, 01/24/25 11:37:00 EDT, Height/Length [...] six hours as needed for pain Hydrocodone-Acetaminophen (N[place]ant) 5-325 mg tablet Discontinued 1 TAB PO Q6H as needed for pain 7 2 September 29, 2018 May 18, 2022 11:27am Start: 03-13-2018 End: 04-24-2018 take 1 tablet by mouth every four to six hours as needed for pain Hydrocodone-Acetaminophen ([place]) 5-325 mg tablet Discontinued 1 TAB PO EVERY 4-6 HOURS as needed for pain 10 March 13, 2018 April 24, 2018 8:47pm [...] INH INHALATION Q6H as needed for bronchospasm June 15, 2017 12:00am November 22, 2017 [...] tablet Discontinued 250 MG PO Daily 4 December 16, 2017 12:00am December 19, [...] 20, 2017 12:00am February 12, 2018 6:44pm cariprazine 1.5 mg oral capsule (20 sources) Atypical Antipsychotic Start: 06-30-2023 End: 03-14-2025 take 1 capsule by mouth once daily in the morning Cariprazine (Vraylar) 1.5 mg capsule Discontinued 1.5 MG PO Every morning June 30, 2023 12:00am March 14, 2025 8:54am cephalexin 500 mg oral capsule (6 sources) Cephalosporin Antibacterial Start: 07-31-2022 take 1 tablet by mouth every twelve hours Keflex 500 mg Cap 500 mg = 1 cap(s), Oral, Daily, Take 1 tablet day before procedure, and then 1 tablet 12 hrs later, # 2 cap(s), Refills(s) 0, Pharmacy: [facility] [id number] Start Date: 07/31/22 Status: Ordered Quantity: 2.0 Unit: cap(s) Repeat number: 1 codeine phosphate 2 mg/ml / promethazine hydrochloride 1.25 mg/ml oral solution (20 sources) Opioid Agonist, Phenothiazine Start: 06-15-2017 End: 11-22-2017 take 1 mL by mouth every four to six hours as needed for cough Promethazine-Code ine 6.25-10 mg/5 mL syrup Discontinued 5 ML PO EVERY 4-6 HOURS as needed for cough 118 June 15, 2017 12:00am November 22, 2017 11:46pm doxazosin 2 mg oral tablet (20 sources) alpha-Adrenergic Deejay Start: 11-02-2022 End: 04-16-2025 take 1 tablet by mouth once daily at bedtime Doxazosin (Cardura) 2 mg tablet Discontinued 2 MG PO Daily at bedtime November 18, 2022 1:00am April 16, 2025 1:59pm hydrocortisone 10 mg/ml / neomycin 3.5 mg/ml / polymyxin b 97898 unt/ml otic suspension (20 sources) Aminoglycoside Antibacterial, Polymyxin-class Antibacterial, Corticosteroid Start: 09-21-2018 End: 10-01-2018 Neomycin-Polymyxi n-Hc 3.5-10,000-1 mg/mL-unit/mL-% drops,suspension Discontinued 4 DROPS OTIC Q6H 15 September 21, 2018 1:00am September 30, 2018 1:00am October 01, 2018 1:02am ibuprofen 600 mg oral tablet (20 sources) Nonsteroidal Anti-inflammatory Drug Start: 07-13-2023 End: 09-16-2023 take 4 tablets by mouth every twenty-four hours for pain Ibuprofen 600 mg tablet Discontinued 600 MG PO Every 6 hours as needed for pain July 13, 2023 12:00am September 16, 2023 8:57am do not exceed 4 doses in a 24 hour period ketorolac tromethamine 10 mg oral tablet (20 sources) Nonsteroidal Anti-inflammatory Drug, Cyclooxygenase Inhibitor Start: 04-14-2023 End: 04-16-2025 take 1 tablet by mouth every six hours as needed for pain Ketorolac 10 mg Tablet Discontinued 10 MG PO Q6H as needed for Pain April 14, 2023 12:00am April 16, 2025 1:59pm Toradol Active methylPREDNISolone 4 mg oral tablet (16 sources) Corticosteroid Start: 03-08-2024 End: 07-24-2024 take 1 tablet by mouth once Methylprednisolone (Medrol (Blaze)) 4 mg tablets,dose pack Discontinued 0 PO per package directions March 08, 2024 12:00am July 24, 2024 8:18am PO PER PKG DIR ofloxacin 3 mg/ml otic solution (20 sources) Quinolone Antimicrobial Start: 09-29-2018 End: 10-06-2018 Ofloxacin 0.3 % drops Discontinued 10 DROPS OTIC Twice daily 07 10September 29, 2018 1:00am October 05, 2018 1:00am October 06, 2018 1:01am Start: 09-29-2018 End: 10-06-[address] OPS OTIC Twice daily 07 10September 29, 2018 1:00am October 06, 2018 1:01am [...] tablet Discontinued 20 MG PO Twice daily 07 08December 16, 2017 12:00am December 20, 2017 12:00am [...] 2017 11:46pm administer with food or milk Sod Picosulf-Mag Ox-Citric A c (20 sources) Start: 01-31-2024 End: 07-24-2024 Sod [...] followed by 3 8oz glasses of liquid temazepam 15 mg oral capsule (4 sources) Benzodiazepine Start: 03-13-2025 End: 03-14-2025 take 1 capsule by mouth once daily at bedtime as needed Temazepam 15 mg capsule Discontinued 15 MG PO Daily at bedtime as needed March 13, 2025 12:00am March 14, 2025 8:56am vancomycin 125 mg oral capsule (20 sources) Glycopeptide Antibacterial Start: 10-09-2023 End: 03-01-2024 [...] unspecified] Onset: 11-16-2022 10-27-2019 Episodic Intestinal infection (20 sources) Clostridium difficile diarrhea; Translations: [Enterocolitis due to Clostridium difficile, not specified as recurrent] 10-09-2023 Episodic Malaise and fatigue (1 source) Malaise; Translations: [Other malaise] Onset: 07-09-2024 Episodic Miscellaneous mental health disorders (20 sources) Dissociative convulsions; 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 Mood disorders (20 sources) Depressive disorder; Translations: [Depression] 10-08-2023 Chronic [...] 06-08-2024 Chronic Other aftercare (1 source) Other skilled nursing (current) drug therapy; Translations: [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 THERAPY] Onset: 02-02-2023 Episodic Other aftercare (1 source) 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; Translations: [SENIOR CARE USE ORAL HYPOGLYCEMIC DX] Onset: 02-02-2023 Episodic Other connective tissue disease (20 sources) Fibromyalgia; Translations: [Fibromyalgia] 04-17-2019 Episodic Other connective tissue disease (20 sources) Muscle pain; Translations: [Myalgia, unspecified site] 04-17-2019 Episodic Other connective tissue disease (6 sources) Bursitis of hip; Translations: [Trochanteric bursitis, unspecified hip] 03-20-2025 Episodic Other diseases of bladder and urethra [...] ear] 11-26-2017 Episodic Other female genital disorders (20 sources) Vaginal bleeding; Translations: [Abnormal uterine and vaginal bleeding, unspecified] 10-24-2023 Chronic Other gastrointestinal disorders (20 sources) Irritable bowel syndrome; Translations: [Irritable bowel syndrome without diarrhea] 10-08-2023 Chronic Other gastrointestinal disorders (2 sources) Irritable bowel syndrome without diarrhea; Translations: [Irritable bowel syndrome] 10-09-2023 Chronic Other hematologic conditions (20 sources) H/O: blood disorder; Translations: [Personal history [...] Onset: 11-16-2022 Chronic Other nervous system disorders (20 sources) Acute postoperative pain; Translations: [Other acute postprocedural pain] 10-08-2023 Episodic Other nutritional; endocrine; and metabolic disorders (1 source) Abnormal weight loss; Translations: [Abnormal weight loss] Onset: 04-18-2025 Episodic Other screening for suspected conditions (not mental disorders or infectious disease) (3 sources) Encounter for screening mammogram for malignant neoplasm of breast; Translations: [Encounter for screening for malignant neoplasm of colon] Onset: 07-24-2024 Episodic Other skin disorders (1 source) Generalized hyperhidrosis; Translations: [Generalized hyperhidrosis] Onset: 04-18-2025 Episodic Other upper respiratory infections (20 sources) [...] and uterus] 10-09-2023 Episodic Residual codes; unclassified (20 sources) Left against medical advice; Translations: [Procedure and treatment not carried out because of patient's decision for other reasons] 10-24-2023 Episodic Residual codes; unclassified (1 source) Localized edema; Translations: [Localized edema] Onset: 03-06-2025 Episodic Screening and history of mental health [...] NONCOMPLIANCE DIET UNS REASON] Onset: 02-02-2023 Unclassified (3 sources) D72.829 - Elevated white blood cell count, unspecified Urinary tract infections (1 source) Urinary tract infection, site not specified; Translations: [Urinary tract infection, site not specified] Onset: 03-06-2025 Episodic Viral infection (1 source) Viral disease; Translations: [Viral infection, unspecified] Onset: 07-09-2024 Episodic Past or Other Problems Problem Classification Problem Date Documented Da te Episodic/Chronic Epilepsy; convulsions (3 sources) Unspecified convulsions; Translations: [UNSPECIFIED CONVULSIONS] Onset: 11-12-2022 Episodic Nonmalignant breast conditions (2 sources) Mastodynia; Translations: [Solitary cyst of right breast] Onset: 07-24-2024 Episodic Other connective tissue disease (3 sources) Fibromyalgia; Translations: [FIBROMYALGIA] Onset: 01-14-2022 Resolved: 01-28-2022 Episodic Other non-traumatic joint disorders (1 source) Pain in unspecified hip Onset: 02-19-2022 Resolved: 02-19-2022 Episodic Residual codes; unclassified (1 source) Pain, unspecified; Translations: [Pain, unspecified] Onset: 07-04-2024 Episodic Spondylosis; intervertebral disc disorders; other back problems (20 sources) Cervicalgia; Translations: [Radiculopathy, lumbar region] Onset: 01-14-2022 Resolved: 02-19-2022 Episodic Unclassified (1 source) Low back pain at multiple sites M54.50 Onset: 01-14-2022 Resolved: 01-14-2022 Results Test Name Value Interpretation Reference Range Facility CT abdomen pelvis w conon CT abdomen pelvis w con [facility] [place] [address] [place] [id number] Scan Report Signed Patient: Rachel Mcgarry MR#: [id number] 1 : 1980 Acct:[id number] Age/Sex: 45 / F ADM Date: 04/18/25 Loc: Room: Type: [facility] RCR Attending Dr: Jane DEJESUS Copies to: OLEG Goddard MD Ordering Provider: Enrique Pratt MD Date of Service: 04/18/25 CT/CT abdomen pelvis w con: D72.829 - Elevated white blood cell count, unspecified ([id number]) CT/CT chest w con: D72.829 - Elevated white blood cell count, unspecified CT CHEST, ABDOMEN AND PELVIS WITH INTRAVENOUS CONTRAST: CLINICAL HISTORY: Elevated white blood count, weight loss, lower abdominal pain, night sweats history cervical cancer COMPARISON: None TECHNIQUE: Spiral images were obtained through the chest, abdomen and pelvis following the administration of IV contrast. This CT exam was performed using one or more following dose reduction techniques: Automated exposure control, adjustment of the mA and/or kV according to patient size, or use of iterative reconstruction technique. FINDINGS: CT chest: Mediastinum:Right hilar calcified granulomatous. Unremarkable heart size. No pericardial effusion. No suspicious mediastinal or hilar adenopathy. Lungs:Lungs are clear. No airspace opacity, effusion or pneumothorax. Partially calcified rim is right lung. Soft tissues/Bones: No stenosis bone lesion. Mildly enlarged left axillary lymph nodes noted. Evidence of biopsy clip within one of the axillary lymph nodes identified. CT abdomen and pelvis: Organs:Cholecystectomy Otherwise the liver, spleen, adrenals, kidneys, pancreas unremarkable.[ GI: Mild retained stool. No bowel obstruction : Diverticulosis. Postsurgical changes along the cecum. Appendix not identified.[ Pelvis:[Left ovarian cyst 4.1 x 3.1 cm size with internal septations. Unremarkable right adnexa. Uterus absent.] Peritoneum/Retroperitoneum: No free air or free fluid. Moderate plaque involving the nonaneurysmal aorta.[No adenopathy. Abd wall/Bones:No suspicious osseous lesion.[ CT/CT chest w con IMPRESSION: Negative for suspicious mass or metastatic adenopathy. Large left axillary lymph nodes with biopsy clip is noted, correlate with prior pathology. Impression dictated by: Kenneth Goel M.D. 04/18/2025 11:53 AM Dictation Location: [place] [address] Transcribed By: [facility] 04/18/25 1153 Dictated By: Kenneth Goel MD 04/18/25 1145 Signed By: 04/18/25 1153 Normal [facility] Creatinineon 04-18-2025 Creatinine Clr Calc Pharmacy 142.38 Normal [facility] Comment on above: Order Comment: STAT FOR CT Result Comment: PERF ORMED BY: [place] [address] PATHOLOGIST CONTENT ADMINISTRATOR KVNG HENDERSON M.D. Performed By: #### C BC, CMP, LIPID #### [facility] [address] [place] [address] GFR/1.73 sq M.predicted MDRD (S/P/Bld) [Vol rate/Area] mL/min/{1.73_m2} Normal [facility] Comment on above: Order Comment: STAT FOR CT Performed By: #### C BC, CMP, LIPID #### [facility] [address] [place] [address] Creatinine [Mass/volume] in Serum or PlasmaOrdered By: Jane Woo on 04-18-2025 Creatinine [Mass/Vol] 0.49 mg/dL Low 0.60-1.20 [facility] Comment on above: Order Comment: STAT FOR CT Performed By: #### C BC, CMP, LIPID #### [facility] [address] [place] [address] No Panel InformationOrdered By: Jane Woo on 04-18-2025 Estimated GFR (CKD-EPI) > 60.0 mL/Min [facility] Creatinine Clearance (Chem 142.38 [facility] QuantiFERON TB Goldon 2024 QFTB Criteria Comment Normal . [facility] Comment on above: Result Comment: Jose Francisco tiFERON-TB Gold Plus is a qualitative indirect test for M tuberculosis infection (including disease) and is intended for use in conjunction with risk assessment, radiography, and other medical and diagnostic evaluations. The QuantiFERON-TB Gold Plus result is determined by subtracting the Nil value from either TB antigen (Ag) value. The Mitogen tube serves as a control for the test. Performed By: #### C MP, CBC, LIPASE #### [address] Quant TB Ag Value 0.26 Normal . [facility] Comment on above: Performed By: #### C MP, CBC, LIPASE #### [address] Quant TB Gold Plus Negative Normal Negative [facility] Comment on above: Result Comment: No r esponse to M tuberculosis antigens detected. Infection with M tuberculosis is unlikely, but high risk individuals should be considered for additional testing (ATS/IDSA/CDC Clinical Practice Guidelines, 2017). The reference range is an Antigen minus Nil result of <0.35 IU/mL. The specimen received for QuantiFERON testing was incubated by the ordering institution. Specific procedures outlined in our Directory of Services and in the package insert for the QuantiFERON Gold (In Tube) test must be followed to enable for proper stimulation of cells for the production of interferon gamma. Chemiluminescence immunoassay methodology Performed at: [employer] [id number] Gas Treater: Daniel Wen PhD, Phone: [phone] PERFORMED BY: [place] [address] PATHOLOGIST CONTENT ADMINISTRATOR KVNG HENDERSON M.D. Performed By: #### C MP, CBC, LIPASE #### [address] Quant TB2 Ag Value 0.17 Normal . [facility] Comment on above: Performed By: #### C MP, CBC, LIPASE #### [address] [place] [address] [place] Quantiferon Nil Value 0.06 Normal . [facility] Comment on above: Performed By: #### C MP, CBC, LIPASE #### [facility] [address] Quantiferon TB Mitogen >10.00 Normal . [facility] Comment on above: Performed By: #### C MP, CBC, LIPASE #### [facility] [address] RPR w/rfx to Quant TP Abson 04-18-2025 RPR Interpretation Comment Normal . [facility] Comment on above: Result Comment: Syph ilis: RPR with Reflex to RPR Titer and Treponemal Antibodies, Traditional Screening and Diagnosis Algorithm Treponemal RPR RPR, Qn Ab Final Interpretation -------- --------- Non N/A N/A No laboratory evidence Reactive of syphilis. Retest in 2-4 weeks if recent exposure is suspected. -------- --------- Reactive >/=1:1 Non Nontreponemal antibodies Reactive detected. Syphilis unlikely; biological false positive possible. Retest in 2-4 weeks if recent exposure is suspected. -------- --------- Reactive >/=1:1 Reactive Treponemal and nontreponemal antibodies detected. Consistent with past or current (potential early) syphilis. Performed at: [facility] [id number] Gas Treater: Daniel Wen PhD, Phone: [phone] PERFORMED BY: [place] [address] PATHOLOGIST CONTENT ADMINISTRATOR KVNG HENDERSON M.D. Performed By: #### C MP, CBC, LIPASE #### [address] RPR, Rfx Quant RPR Non-Reactive Normal Non Reactive [facility] Comment on above: Performed By: #### C MP, CBC, LIPASE #### [address] T-Cell Gene Rearrangement, P CRon 04-18-2025 Director Review: Comment Normal . [facility] Comment on above: Result Comment: Tech nical Component performed at [facility] RT Professional Component performed by: Abhi Ray, PhD, [facility] Director, Molecular On[facility] [place] [id number], [address] [place] [address] Performed By: #### C MP, CBC, LIPASE #### [address] Methodology: Comment Normal . [facility] Comment on above: Result Comment: Cari ent cellular DNA is subjected to polymerase chain reaction using 2 optimized primer sets that target multiple V and J exon regions within the T cell receptor gamma chain gene on chromosome 7. Rearrangements are detected by identification of specific clonal amplicon products following electrophoresis. This PCR assay is capable of detecting a clonal population at a sensitivity of 5 clonal cells per 100 normal cells. Performed By: #### C MP, CBC, LIPASE #### [address] References: Comment Normal . [facility] Comment on above: Result Comment: 1. Jody Ramirez, et al. Powerful strategy for polymerase chain reaction-based clonality assessment in T-cell malignancies. Report of the BIOMED-2 Concerted Action BHM4 [id number]. Leukemia 2007: 21:215-221. 2. Stevan VÁSQUEZ, et al. EuroClonality/BIOMED-2 guidelines for interpretation and reporting of Ig/TCR clonality testing in suspected lymphoproliferations. Leukemia 2012: 26:0974-3860. This test was developed and its performance characteristics determined by [employer]. It has not been cleared or approved by the Food and Drug Administration. Performed at: [facility] [place] [address], [place], [place] [id number] Gas Treater: [facility], Phone: [phone] PERFORMED BY: [place] [address] PATHOLOGIST CONTENT ADMINISTRATOR KVNG HENDERSON M.D. Performed By: #### C MP, CBC, LIPASE #### [address] T-Cell PCR Interpretation Comment Normal . [facility] Comment on above: Result Comment: NEGA TIVE: No clonal T-cell receptor gamma (TCRG) population was detected Interpretation of this result should be made in the context of other clinical, morphologic, and immunophenotypic findings. This PCR assay detects approximately 89% of T- cell clonal populations but as with all amplification based assays, may not detect all possible T-cell receptor gene rearrangements. If significant suspicion of clonality remains, T-cell receptor beta (TCRB, test code 880867) test is recommended. The combined T-cell clonality detection rate of TCRG and TCRB is 94-99%. The T-cell receptor gene rearrangement panel (includung both TCRG and TCRB, test code 665927) is available for parallel testing. Performed By: #### C MP, CBC, LIPASE #### [address] Urea nitrogen [Mass/volume] in Serum or PlasmaOrdered By: Jane Woo on 04-18-2025 Urea nitrogen [Mass/Vol] 6 mg/dL Low 7-25 [facility] Comment on above: Order Comment: STAT FOR CT Performed By: #### C BC, CMP, LIPID #### [address] BERTHA Antinuclear Antibodieson 03-14-2025 Antinuclear Abs, IFA Negative Normal . [facility] Comment on above: Result Comment: Nega tive <1:80 Borderline 1:80 Positive >1:80 ICAP nomenclature: AC-0 For more information about Hep-2 cell patterns use ANApatterns.org, the official website for the International Consensus on Antinuclear Antibody (BERTHA) Patterns (ICAP). Performed at: [facility] [id number] Gas Treater: Daniel Wen PhD, Phone: [phone] Performed By: #### C MP, CBC, LIPASE #### [address] Amylase [Enzymatic activity/ volume] in Serum or PlasmaOrdered By: Enrique Pratt on 03-14-2025 Amylase [Catalytic activity/Vol] 25 U/L Low 29-103 [facility] Comment on above: Performed By: #### J AK 2 NEOGENOMI, CRP, T4F, BCRABL NEOGENOM, LIPASE, TSH3, FLOW NEOGENOMIC, KARINA, RAKESH #### [address] #### HCV RX PCR, HBSAB, HBSAG, BERTHA, BRITTANI, HBCAB, HAAB, HIV SCREEN, RA #### [facility] , Appearance of UrineOrdered B y: Enrique Pratt on 03-14-2025 Appearance (U) Cloudy Critically abnormal Clear [facility] Comment on above: Order Comment: Name Collection Type:: Clean-Voided Midstream Performed By: #### A DDONUAPLUS #### [address] BCR-ABL Neogenomicon 025 BCR-ABL Neogenomic Normal [facility] Comment on above: Result Comment: See report. Scanned copy available in EMR. PERFORMED BY: [place] [address] PATHOLOGIST CONTENT ADMINISTRATOR KVNG HENDERSON M.D. Performed By: #### C MP, CBC, LIPASE #### [address] Bacteria [Presence] in Urine by AutomatedOrdered By: Enrique Pratt on 03-14-2025 Bacteria Auto Ql (U) 1+ [HPF] High None Seen [facility] Basophils [#/volume] in Bloo d by Automated countOrdered By: Jane [facility] on 03-14-2025 Basophils (Bld) [#/Vol] 0.1 10*3/uL Normal 0.0-0.2 [facility] Comment on above: Result Comment: PERF ORMED BY: [place] [address] PATHOLOGIST CONTENT ADMINISTRATOR KVNG HENDERSON M.D. Performed By: #### C MP, CBC, LIPASE #### [place] [address] [place] Basophils/100 leukocytes in Blood by Automated countOrdered By: Jane [facility] on 03-14-2025 Basophils/100 WBC (Bld) 0.9 % Normal . [facility] Comment on above: Performed By: #### C MP, CBC, LIPASE #### [address] Bilirubin Test strip Ql (U)O rdered By: Enrique Pratt on 03-14-2025 Bilirubin Ql (U) Negative Negative [facility] C reactive protein [Mass/vol ume] in Serum or PlasmaOrdered By: Enrique Pratt on 03-14-2025 CRP [Mass/Vol] 0.7 mg/dL High 0.0-0.5 [facility] C-Reactive Proteinon 025 C-Reactive Protein 0.7 mg/dL High 0.0-0.5 [facility] Comment on above: Performed By: #### C MP, CBC, LIPASE #### [facility] [address] [place] [address] [place] Color of Urine by AutoOrdere d By: Enrique Pratt on 03-14-2025 Color (U) Light-yellow Normal Yellow [facility] Comment on above: Order Comment: Name Collection Type:: Clean-Voided Midstream Performed By: #### A DDONUAPLUS #### [address] Complete Blood Count Auto Di ffon 03-14-2025 Mean Corpuscular HGB Conc 34.0 g/dL Normal 32.0-35.0 [facility] Comment on above: Performed By: #### C MP, CBC, LIPASE #### [address] NRBC% 0.1 /100{WBC} Normal 0-0.5 [facility] Comment on above: Performed By: #### C MP, CBC, LIPASE #### [address] Cortisolon 03-14-2025 Cortisol 6.7 ug/dL Normal [facility] Comment on above: Result Comment: Refe rence range: AM 6 - 24 ug/dl PM <10 ug/dl [facility] supervisor hide house and method: ComAbility UNICEL DXI, POLYCLONAL ANTIBODY CORTISOL ASSAY. PERFORMED BY: [place] [address] PATHOLOGIST CONTENT ADMINISTRATOR KVNG HENDERSON M.D. Performed By: #### C MP, CBC, LIPASE #### [address] Cortisol [Mass/volume] in Se rum or PlasmaOrdered By: Enrique Pratt on 03-14-2025 Cortisol [Mass/Vol] 6.7 ug/dL [facility] Comment on above: [facility] supervisor hide house and method:ComAbility UNICEL DXI, POLYCLONAL ANTIBODY CORTISOL ASSAY.Reference range: AM 6 - 24 ug/dl PM <10 ug/dl Dipstick and Microscopicon 0 03-14-2025 Bacteria,Urine 1+ High None Seen [facility] Comment on above: Order Comment: Name Collection Type:: Clean-Voided Midstream Performed By: #### A DDONUAPLUS #### [address] Bilirubin,Urine Negative Normal Negative [facility] Comment on above: Order Comment: Name Collection Type:: Clean-Voided Midstream Performed By: #### A DDONUAPLUS #### [facility] [address] Glucose Ql (U) Normal Normal Normal [facility] Comment on above: Order Comment: Name Collection Type:: Clean-Voided Midstream Performed By: #### A DDONUAPLUS #### [facility] [address] [place] [address] [place] Hyaline Casts,Urine None Normal 0-8 [facility] Comment on above: Order Comment: Name Collection Type:: Clean-Voided Midstream Performed By: #### A DDONUAPLUS #### [place] [address] [place] Mucus,Urine Rare Normal [facility] Comment on above: Order Comment: Name Collection Type:: Clean-Voided Midstream Result Comment: PERF ORMED BY: [place] [address] PATHOLOGIST CONTENT ADMINISTRATOR KVNG HENDERSON M.D. Performed By: #### A DDONUAPLUS #### [address] Nitrite,Urine Negative Normal Negative [facility] Comment on above: Order Comment: Name Collection Type:: Clean-Voided Midstream Performed By: #### A DDONUAPLUS #### [address] Occult Blood,Urine Negative Normal Negative [facility] Comment on above: Order Comment: Name Collection Type:: Clean-Voided Midstream Result Comment: PERF ORMED BY: [place] [address] PATHOLOGIST CONTENT ADMINISTRATOR KVNG HENDERSON M.D. Performed By: #### A DDONUAPLUS #### [place] [address] [place] Protein,Urine Negative Normal Negative [facility] Comment on above: Order Comment: Name Collection Type:: Clean-Voided Midstream Performed By: #### A DDONUAPLUS #### [place] [address] [place] RBC,Urine 1-2 Normal 0-4 [facility] Comment on above: Order Comment: Name Collection Type:: Clean-Voided Midstream Performed By: #### A DDONUAPLUS #### [address] Specificy Olden,Urine 1.011 Normal 1.00 1-1.03 0 [facility] Comment on above: Order Comment: Name Collection Type:: Clean-Voided Midstream Performed By: #### A DDONUAPLUS #### [address] Squamous Epithelial Cell,Urine 10-19 High 0-2 [facility] Comment on above: Order Comment: Name Collection Type:: Clean-Voided Midstream Performed By: #### A DDONUAPLUS #### [address] Urobilinogen,Urine Normal Normal Normal [facility] Comment on above: Order Comment: Name Collection Type:: Clean-Voided Midstream Performed By: #### A DDONUAPLUS #### [place] [address] [place] WBC,Urine 1-2 Normal 0-4 [facility] Comment on above: Order Comment: Name Collection Type:: Clean-Voided Midstream Performed By: #### A DDONUAPLUS #### [place] [address] [place] Eosinophils [#/volume] in Bl ood by Automated countOrdered By: [facility] on 03-14-2025 Eosinophils (Bld) [#/Vol] 0.1 10*3/uL Normal 0.0-0.45 [facility] Comment on above: Performed By: #### C MP, CBC, LIPASE #### [place] [address] [place] Eosinophils/100 leukocytes i n Blood by Automated countOrdered By: [facility] on 03-14-2025 Eosinophils/100 WBC (Bld) 0.4 % Normal . [facility] Comment on above: Performed By: #### C MP, CBC, LIPASE #### [address] [place] [address] [place] Epithelial cells.squamous [# /area] in Urine sediment by Automated countOrdered By: Enrique Pratt on 03-14-2025 Epithelial cells.squamous Auto (Urine sed) [#/Area] 10-19 [HPF] High 0-2 [facility] Erythrocyte distribution wid th [Ratio] by Automated countOrdered By: Jane [facility] on 03-14-2025 Erythrocyte distribution width (RBC) [Ratio] 13.7 % Normal 11.9-15.3 [facility] Comment on above: Performed By: #### C MP, CBC, LIPASE #### [address] Erythrocytes [#/area] in Uri ne sediment by Automated countOrdered By: Enrique Trivedi on 03-14-2025 RBC Auto (Urine sed) [#/Area] 1-2 [HPF] 0-4 [facility] Erythrocytes [#/volume] in B lood by Automated countOrdered By: Jane [facility] on 03-14-2025 RBC (Bld) [#/Vol] 5.02 10*6/uL High 3.60-5.00 [facility] Comment on above: Performed By: #### C MP, CBC, LIPASE #### [address] Flowcytometry Neogenomicon 0 03-14-2025 Flowcytometry Neogenomic . Normal [facility] Comment on above: Result Comment: See report. Scanned copy available in EMR. Performed By: #### C MP, CBC, LIPASE #### [address] Glucose [Mass/volume] in Uri ne by Test stripOrdered By: Enrique Pratt on 03-14-2025 Glucose Test strip (U) [Mass/Vol] Normal mg/dL Normal [facility] HIV 1/O/2 Antigen/Antibodyon 03-14-2025 HIV Screen 4th Generation Non-Reactive Normal Non Reactive [facility] Comment on above: Result Comment: HIV- 1/HIV-2 antibodies and HIV-1 p24 antigen were NOT detected. There is no laboratory evidence of HIV infection. HIV Negative Performed at: - [facility] [id number] Gas Treater: Daniel Wen PhD, Phone: [phone] PERFORMED BY: [place] [address] PATHOLOGIST CONTENT ADMINISTRATOR KVNG HENDERSON M.D. Performed By: #### C MP, CBC, LIPASE #### [address] Hematocrit [Volume Fraction] of Blood by Automated countOrdered By: [facility] on 03-14-2025 Hematocrit (Bld) [Volume fraction] 44.0 % Normal 34.0-46.4 [facility] Comment on above: Performed By: #### C MP, CBC, LIPASE #### [address] Hemoglobin Test strip Ql (U) Ordered By: Enrique Pratt on 03-14-2025 Hemoglobin Ql (U) Negative Negative [facility] Hemoglobin [Mass/volume] in BloodOrdered By: [facility] on 03-14-2025 Hemoglobin (Bld) [Mass/Vol] 15.0 g/dL Normal 11.8-15.4 [facility] Comment on above: Performed By: #### C MP, CBC, LIPASE #### [address] Hep C Ab wRfx to Qnt PCRon 0 03-14-2025 Hepatitis C Virus Antibody Non-Reactive Normal Non Reactive [facility] Comment on above: Performed By: #### C MP, CBC, LIPASE #### [address] Interpretation Hepatitis C Comment Normal . [facility] Comment on above: Result Comment: Not infected with HCV unless early or acute infection is suspected (which may be delayed in an immunocompromised individual), or other evidence exists to indicate HCV infection. Performed By: #### C MP, CBC, LIPASE #### [address] Hepatitis A Antibody IgMon 0 03-14-2025 Hepatitis A Antibody IgM Negative Normal Negative [facility] Comment on above: Result Comment: A ne gative anti-HAV IgM result suggests no recent or current HAV infection. Performed at: - [facility] [id number] Gas Treater: Daniel Wen PhD, Phone: [phone] Performed By: #### C MP, CBC, LIPASE #### [address] Hepatitis B Core Antibodyon 03-14-2025 Hepatitis B Core Antibody Negative Normal Negative [facility] Comment on above: Performed By: #### C MP, CBC, LIPASE #### [address] Hepatitis B Surface Antibody on 03-14-2025 Hepatitis B Surface Antibody Non-Reactive Normal . [facility] Comment on above: Result Comment: Non Reactive: Not immune to HBV infection. Equivocal: Unable to determine if anti-HBs is present at levels consistent with immunity. Reactive: Anti-HBs concentration detected at greater than 10 mIU/mL. Individual is considered to be immune to infection with HBV. Performed By: #### C MP, CBC, LIPASE #### [address] Hepatitis B Surface Antigeno n 03-14-2025 HBsAg Screen Negative Normal Negative [facility] Comment on above: Result Comment: PERF ORMED BY: [place] [address] PATHOLOGIST CONTENT ADMINISTRATOR KVNG HENDERSON M.D. Performed By: #### C MP, CBC, LIPASE #### [address] Hepatitis C virus IgG Ab [Pr esence] in Serum or Plasma by ImmunoassayOrdered By: Enrique Pratt on 03-14-2025 HCV IgG IA Ql Non-Reactive Non Reactive [facility] Hyaline casts [#/area] in Ur ine sediment by Automated countOrdered By: Enrique Trivedi on 03-14-2025 Hyaline casts Auto (Urine sed) [#/Area] None [LPF] 0-8 [facility] WILLIAM 2 Neogenomicon WILLIAM 2 Neogenomic Normal [facility] Comment on above: Result Comment: See report. Scanned copy available in EMR. Performed By: #### C MP, CBC, LIPASE #### [facility] [address] Ketones [Presence] in Urine by Test stripOrdered By: Enrique Pratt on 03-14-2025 Ketones Ql (U) Negative Normal Negative [facility] Comment on above: Order Comment: Name Collection Type:: Clean-Voided Midstream Performed By: #### A DDONUAPLUS #### [address] Leukocyte esterase [Presence ] in Urine by Test stripOrdered By: Enrique Pratt on 03-14-2025 Leukocyte esterase Test strip Ql (U) Negative Normal Negative [facility] Comment on above: Order Comment: Name Collection Type:: Clean-Voided Midstream Performed By: #### A DDONUAPLUS #### [address] Leukocytes [#/area] in Urine sediment by Automated countOrdered By: Enrique Trivedi on 03-14-2025 WBC Auto (Urine sed) [#/Area] 1-2 [HPF] 0-4 [facility] [facility] Leukocytes [#/volume] correc cherie for nucleated erythrocytes in Blood by Automated counOrdered By: Jane [facility] 03-14-2025 WBC corrected for nucl RBC Auto (Bld) [#/Vol] 15.3 10*3/uL High 3.8-11.6 [facility] Leukocytes [#/volume] in Blo od by Automated countOrdered By: Jane [facility] on 03-14-2025 WBC (Bld) [#/Vol] 15.3 10*3/uL High 3.8-11.6 [facility] Comment on above: Performed By: #### C MP, CBC, LIPASE #### [facility] [address] [place] [address] [place] Lipase [Enzymatic activity/v olume] in Serum or PlasmaOrdered By: Enrique Pratt on 03-14-2025 Lipase [Catalytic activity/Vol] 43.0 U/L Normal 11.0-82.0 [facility] Comment on above: Performed By: #### J AK 2 NEOGENOMI, CRP, T4F, BCRABL NEOGENOM, LIPASE, TSH3, FLOW NEOGENOMIC, KARINA, RAKESH #### [address] #### HCV RX PCR, HBSAB, HBSAG, BERTHA, BRITTANI, HBCAB, HAAB, HIV SCREEN, RA #### [facility] , Lymphocytes [#/volume] in Bl ood by Automated countOrdered By: Jane [facility] on 03-14-2025 Lymphocytes (Bld) [#/Vol] 4.3 10*3/uL Normal 1.00-4.8 [facility] Comment on above: Performed By: #### C MP, CBC, LIPASE #### [address] Lymphocytes/100 leukocytes i n Blood by Automated countOrdered By: Jane [facility] on 03-14-2025 Lymphocytes/100 WBC (Bld) 28.0 % Normal . [facility] Comment on above: Performed By: #### C MP, CBC, LIPASE #### [address] MCH [Entitic mass] by Automa cherie [facility]Or[facility]: [facility] MCH (RBC) [Entitic mass] 29.8 pg Normal 24.7-34.3 [facility] Comment on above: Performed By: #### C MP, CBC, LIPASE #### [address] MCHC Auto (RBC) [Mass/Vol]Or dered By: Jane [facility] on 03-14-2025 MCHC (RBC) [Mass/Vol] 34.0 g/dL 32.0-35.0 [facility] MCV [Entitic volume] by Auto mated countOrdered By: Jane [facility] on 03-14-2025 MCV (RBC) [Entitic vol] 87.7 fL Normal 80-100 [facility] Comment on above: Performed By: #### C MP, CBC, LIPASE #### [facility] [address] [place] [address] [place] Monocytes [#/volume] in Bloo d by Automated countOrdered By: [facility] on 03-14-2025 Monocytes (Bld) [#/Vol] 1.2 10*3/uL High 0.0-0.8 [facility] Comment on above: Performed By: #### C MP, CBC, LIPASE #### [place] [address] [place] Monocytes/100 leukocytes in Blood by Automated countOrdered By: [facility] on 03-14-2025 Monocytes/100 WBC (Bld) 8.1 % Normal . [facility] Comment on above: Performed By: #### C MP, CBC, LIPASE #### [place] [address] [place] Mucus [Presence] in Urine by AutomatedOrdered By: Enrique Pratt on 03-14-2025 Mucus Auto Ql (U) Rare [LPF] [facility] Neutrophils [#/volume] in Bl ood by Automated countOrdered By: [facility] on 03-14-2025 Neutrophils (Bld) [#/Vol] 9.6 10*3/uL High 1.8-7.7 [facility] Comment on above: Performed By: #### C MP, CBC, LIPASE #### [place] [address] [place] Neutrophils/100 leukocytes i n Blood by Automated countOrdered By: [facility] on 03-14-2025 Neutrophils/100 WBC (Bld) 62.6 % Normal . [facility] Comment on above: Performed By: #### C MP, CBC, LIPASE #### [place] [address] [place] Nitrite Test strip Ql (U)Ord ered By: Enrique Pratt on 03-14-2025 Nitrite Ql (U) Negative Negative [facility] No Panel InformationOrdered By: Enrique Pratt on 03-14-2025 BCR/abl See comment [facility] Comment on above: See report. Scanned copy available in EMR. Hepatitis C Interpretation Comment . [facility] Comment on above: Not infected with HC V unless early or acute infection issuspected (which may be delayed in an immunocompromisedindividual), or other evidence exists to indicate HCVinfection. [id number] See comment [facility] Comment on above: See report. Scanned copy available in EMR. Nucleated erythrocytes [Pres ence] in Blood by Automated countOrdered By: Jane [facility] on 03-14-2025 Nucleated RBC Auto Ql (Bld) 0.1 /100{WBC} 0-0.5 [facility] Platelet mean volume [Entiti c volume] in Blood by Automated countOrdered By: Jane [facility] on 03-14-2025 Platelet mean volume (Bld) [Entitic vol] 7.9 fL Normal 6.3-10.7 [facility] Comment on above: Performed By: #### C MP, CBC, LIPASE #### [facility] [address] [place] [address] Platelets [#/volume] in Bloo d by Automated countOrdered By: Jane [facility] on 03-14-2025 Platelets (Bld) [#/Vol] 253 10*3/uL Normal 150-450 [facility] Comment on above: Performed By: #### C MP, CBC, LIPASE #### [facility] [address] [place] [address] Protein Test strip (U) [Mass /Vol]Ordered By: Enrique Pratt on 03-14-2025 Protein (U) [Mass/Vol] Negative Negative [facility] Rheumatoid Factoron 03-14-20 25 Rheumatoid Factor 11.0 [IU]/mL Normal <14.0 [facility] Comment on above: Result Comment: Perf ormed at: - [facility] [address] [id number] Gas Treater: Daniel Wen PhD, Phone: [phone] Performed By: #### C MP, CBC, LIPASE #### [facility] [address] Serum angiotensin converting enzyme (BRITTANI) measurementOrdered By: Enrique Pratt on 03-14-2025 Angiotensin converting enzyme [Catalytic activity/Vol] 45 U/L Normal 14-82 [facility] Comment on above: Performed at: [facility] [address] Director: Daniel Wen PhD, Phone: [phone] Result Comment: Perf ormed at: [facility] [place] [id number] Gas Treater: Daniel Wen PhD, Phone: [phone] Performed By: #### C MP, CBC, LIPASE #### [facility] [address] Serum hepatitis B virus surf brittani antibody detectionOrdered By: Enrique Pratt on 03-14-2025 HBV surface Ab Ql (S) Non-Reactive . [facility] Comment on above: Non Reactive: Not im mune to HBV infection. Equivocal: Unable to determine if anti-HBs is present at levels consistent with immunity. Reactive: Anti-HBs concentration detected at greater than 10 mIU/mL. Individual is considered to be immune to infection with HBV. Serum homogeneous pattern an tinuclear antibody (BERTHA) titerOrdered By: Enrique Trivedi on 03-14-2025 Homogenous nuclear Ab pattern (S) [Titer] N/A [facility] Serum nuclear antibody titer Ordered By: Enrique Pratt on 03-14-2025 Nuclear Ab (S) [Titer] Negative . [facility] Comment on above: Negative <1:80 Borde rline 1:80 Positive >1:80ICAP nomenclature: AC-0For more information about Hep-2 cell patterns useANApatterns.org, the official website for theInternational Consensus on Antinuclear Antibody (BERTHA)Patterns (ICAP).Performed at: [facility] [address] [id number] Director: Daniel Wen PhD, Phone: [phone] Serum or plasma hepatitis B virus surface antigen detection by immunoassayOrdered By: Enrique Pratt on 03-14-2025 HBV surface Ag IA Ql Negative Negative [facility] Serum or plasma rheumatoid f actor measurement (units/volume)Ordered By: Enrique Pratt on 03-14-2025 Rheumatoid factor Qn 11.0 [IU]/mL <14.0 [facility] Comment on above: Performed at: [place] [id number] Director: Daniel Wen PhD, Phone: [phone] Specific gravity Test strip (U) [Rel density]Ordered By: Enrique Pratt on 03-14-2025 Specific gravity (U) [Rel density] 1.011 1.001-1.03 0 [facility] Thyrotropin [Units/volume] i n Serum or PlasmaOrdered By: Enrique Pratt on 03-14-2025 TSH Qn 1.88 m[IU]/L Normal 0.45-5.33 [facility] Comment on above: Performed By: #### C MP, CBC, LIPASE #### [facility] [address] Thyroxine (T4) free [Mass/vo lume] in Serum or PlasmaOrdered By: Enrique Pratt on 03-14-2025 Free T4 [Mass/Vol] 0.69 ng/dL Normal 0.61-1.12 [facility] Comment on above: Performed By: #### C MP, CBC, LIPASE #### [facility] [address] [place] [address] [place] Urobilinogen Test strip (U) [Mass/Vol]Ordered By: Enrique Pratt on 03-14-2025 Urobilinogen (U) [Mass/Vol] Normal mg/dL Normal [facility] pH of Urine by Test stripOrd ered By: Enrique Pratt on 03-14-2025 pH (U) 5.5 [pH] Normal 5.0-9.0 [facility] Comment on above: Order Comment: Name Collection Type:: Clean-Voided Midstream Performed By: #### A DDONUAPLUS #### [address] US renal BIon 03-06-2025 US renal BI [facility] [place] [address] Ultrasound Report Signed Patient: Rachel Mcgarry MR#: [id number] 1 : 1980 Acct:[id number] Age/Sex: 45 / F ADM Date: 03/06/25 Loc: Room: Type: [facility] Attending Dr: Ajit DEJESUS Ordering Provider: OLEG Sharp Date of Service: 03/06/25 US/US renal BI: Recurrent UTI;Sensation of pressure in bladder area;Microsco Copies to: OLEG Sharp BILATERAL RENAL AND BLADDER ULTRASOUND CLINICAL HISTORY: Recurrent urinary tract infections and microscopic. COMPARISON: CT 09/05/2024 Estimation of renal size is approximately 12.2 cm on the right and 12.3 cm on the left. No shadowing calculi or hydronephrosis are identified. No renal mass lesions were imaged. There is no perinephric fluid. The urinary bladder is partially distended with a volume of 230 mL. No contour or intraluminal abnormalities are seen. Bilateral ureteral jets are seen. There is no post void bladder residual. US/US renal BI IMPRESSION: NO OBSTRUCTIVE UROPATHY. Impression dictated by: Eda Yañez M.D. 03/06/2025 12:58 PM Dictation Location: [place] [address] Tech: Janet Krause Transcribed By: ROSA MARIA 03/06/25 1258 Dictated By: Eda Yañez MD 03/06/25 1258 Signed By: 03/06/25 1258 Normal [facility] US venous duplex LE BIon US venous duplex LE BI [facility] [place] [address] Ultrasound Report Signed Patient: Rachel Mcgarry MR#: [id number] 1 : 1980 Acct:[id number] Age/Sex: 45 / F ADM Date: 03/06/25 [facility]: Room: [facility] Att[facility] Dr: Ajit DEJESUS Ordering Provider: OLEG Sharp Date of Service: 03/06/25 US/US venous duplex LE BI: Urinary retention;Lower extremity edema Copies to: OLEG Sharp BILATERAL LOWER EXTREMITY VENOUS DUPLEX INDICATION: Lateral lower extremity edema. PROCEDURE: Color-flow duplex scanning is used to interrogate the deep venous system of the right and left lower extremities. The common femoral vein, femoral vein and popliteal vein show good compressibility with normal proximal and distal augmentation. The calf veins are compressible. US/US venous duplex LE BI IMPRESSION: NO EVIDENCE FOR DEEP VEIN THROMBOSIS OR PROXIMAL SUPERFICIAL THROMBOPHLEBITIS IN THE RIGHT OR LEFT LOWER EXTREMITY. Impression dictated by: Marcio Goss MD,FACS,FSVS 03/06/2025 1:25 PM Dictation Location: [place] [address] Tech: Janet Jimi Transcribed By: ROSA MARIA 03/06/25 1325 Dictated By: Marcio Goss MD 03/06/25 1325 Signed By: 03/06/25 1325 Normal [facility] Urine Cultureon 02-26-2025 Bacteria identified Cx Nom (U) 20,000 colonies/ml mixed bacterial skin contaminants 2 Days PERFORMED BY: [place] [address] PATHOLOGIST CONTENT ADMINISTRATOR KVNG HENDERSON M.D. Normal [facility] Comment on above: Performed By: #### C BC, CMP, LIPID #### [facility] [address] [place] [address] Urine cultureOrdered By: Tristian Cedeño on 02-26-2025 Bacteria identified Cx Nom (U) Urine culture [facility] Bacteria identified Cx Nom (U) 2 Days [facility] A1C with Estimated Average G luon 02-20-2025 Glucose [Mass/Vol] 137 mg/dL Normal [facility] Comment on above: Order Comment: Reaso n for Exam Type 2 diabetes mellitus without complication, without long- Result Comment: PERF ORMED BY: [place] [address] PATHOLOGIST CONTENT ADMINISTRATOR MAURO ELLSWORTH M.D. Performed By: #### C BC, CMP, LIPID #### [facility] [address] [place] [address] [place] Alanine aminotransferase [En zymatic activity/volume] in Serum or PlasmaOrdered By: Ajit Pettit on 02-20-2025 ALT [Catalytic activity/Vol] Alanine aminotransferase [Enzymatic activity/volume] in Serum or Plasma [facility] ALT [Catalytic activity/Vol] 11 U/L Normal [facility] Comment on above: Order Comment: Reaso n for Exam Type 2 diabetes mellitus without complication, without long- Reason for Exam Hypercholesterolemia Reason for Exam Vitamin D deficiency Performed By: #### C BC, CMP, LIPID #### [facility] [address] [place] [address] [place] Albumin [Mass/volume] in Ser um or Plasma by Bromocresol green (BCG) dye binding methoOrdered By: Ajit Pettit on 02-20-2025 Albumin BCG dye [Mass/Vol] Albumin [Mass/volume] in Serum or Plasma by Bromocresol green (BCG) dye binding metho 3.5-5.7 [facility] Albumin BCG dye [Mass/Vol] 4.6 g/dL 3.5-5.7 [facility] Alkaline phosphatase [Enzyma tic activity/volume] in Serum or PlasmaOrdered By: Ajit Pettit on 02-20-2025 ALP [Catalytic activity/Vol] Alkaline phosphatase [Enzymatic activity/volume] in Serum or Plasma 34-104 [facility] ALP [Catalytic activity/Vol] 55 U/L Normal 34-104 [facility] Comment on above: Order Comment: Reaso n for Exam Type 2 diabetes mellitus without complication, without long- Reason for Exam Hypercholesterolemia Reason for Exam Vitamin D deficiency Performed By: #### C BC, CMP, LIPID #### [facility] [address] [place], [place] [id number] [place] Aspartate aminotransferase [ Enzymatic activity/volume] in Serum or PlasmaOrdered By: Ajit Pettit on 02-20-2025 AST [Catalytic activity/Vol] Aspartate aminotransferase [Enzymatic activity/volume] in Serum or Plasma [facility] AST [Catalytic activity/Vol] 14 U/L Normal [facility] Comment on above: Order Comment: Reaso n for Exam Type 2 diabetes mellitus without complication, without long- Reason for Exam Hypercholesterolemia Reason for Exam Vitamin D deficiency Performed By: #### C BC, CMP, LIPID #### [facility] [address] [place] [address] [place] Basophils Auto (Bld) [#/Vol] Ordered By: Ajit Ptetit on 02-20-2025 Basophils (Bld) [#/Vol] Automated basophil count 0.0-0.2 [facility] Basophils [#/volume] in Bloo d by Automated countOrdered By: Ajit Millanc on 02-20-2025 Basophils (Bld) [#/Vol] 0.1 10*3/uL Normal 0.0-0.2 [facility] Comment on above: Order Comment: Reaso n for Exam Type 2 diabetes mellitus without complication, without long- Result Comment: PERF ORMED BY: [address] [place] [address] PATHOLOGIST CONTENT ADMINISTRATOR MAURO ELLSWORTH M.D. Performed By: #### C BC, CMP, LIPID #### [facility] [address] [place] [address] [place] Basophils/100 WBC Auto (Bld) Ordered By: Ajit Pettit on 02-20-2025 Basophils/100 WBC (Bld) Automated basophil % . [facility] Basophils/100 leukocytes in Blood by Automated countOrdered By: Ajit Millanc on 02-20-2025 Basophils/100 WBC (Bld) 0.8 % Normal . [facility] Comment on above: Order Comment: Reaso n for Exam Type 2 diabetes mellitus without complication, without long- Performed By: #### C BC, CMP, LIPID #### [facility] [address] Bilirubin.total [Mass/volume ] in Serum or PlasmaOrdered By: Ajit Millanc on 02-20-2025 Bilirubin [Mass/Vol] Bilirubin.total [Mass/volume] in Serum or Plasma 0.3-1.0 [facility] Bilirubin [Mass/Vol] 0.4 mg/dL Normal 0.3-1.0 [facility] Comment on above: Order Comment: Reaso n for Exam Type 2 diabetes mellitus without complication, without long- Reason for Exam Hypercholesterolemia Reason for Exam Vitamin D deficiency Performed By: #### C BC, CMP, LIPID #### [facility] [address] Blood estimated average gluc ose determination by estimation from glycated hemoglobinOrdered By: Ajit Pettit on 02-20-2025 Average glucose Estimated from glycated hemoglobin (Bld) [Mass/Vol] Glucose mean value [Mass/volume] in Blood Estimated from glycated hemoglobin [facility] Average glucose Estimated from glycated hemoglobin (Bld) [Mass/Vol] 137 mg/dL [facility] Calcium [Mass/volume] in Ser um or PlasmaOrdered By: Ajit Pettit on 02-20-2025 Calcium [Mass/Vol] Calcium [Mass/volume ] in Serum or Plasma 8.6-10.3 [facility] Calcium [Mass/Vol] 9.7 mg/dL Normal 8.6-10.3 [facility] Comment on above: Order Comment: Reaso n for Exam Type 2 diabetes mellitus without complication, without long- Reason for Exam Hypercholesterolemia Reason for Exam Vitamin D deficiency Performed By: #### C BC, CMP, LIPID #### [facility] [address] Carbon dioxide, total [Moles /volume] in Serum or PlasmaOrdered By: Ajit Pettit on 02-20-2025 CO2 [Moles/Vol] Carbon dioxide, tota l [Moles/volume] in Serum or Plasma 21.0-31.0 [facility] CO2 [Moles/Vol] 27.8 mmol/L Normal 21.0-31.0 [facility] Comment on above: Order Comment: Reaso n for Exam Type 2 diabetes mellitus without complication, without long- Reason for Exam Hypercholesterolemia Reason for Exam Vitamin D deficiency Performed By: #### C BC, CMP, LIPID #### [facility] [address] [place] [address] [place] Chloride [Moles/volume] in S alissa or PlasmaOrdered By: Ajit Pettit on 02-20-2025 Chloride [Moles/Vol] Chloride [Moles/vol ume] in Serum or Plasma Low 98-107 [facility] Chloride [Moles/Vol] 96 mmol/L Low 98-107 [facility] Comment on above: Order Comment: Reaso n for Exam Type 2 diabetes mellitus without complication, without long- Reason for Exam Hypercholesterolemia Reason for Exam Vitamin D deficiency Performed By: #### C BC, CMP, LIPID #### [facility] [address] [place] [address] [place] Cholesterol [Mass/volume] in Serum or PlasmaOrdered By: Ajit Pettit on 02-20-2025 Cholesterol [Mass/Vol] Cholesterol [Mass /volume] in Serum or Plasma High 140-200 [facility] Comment on above: Chol less than 200 m g/dl low riskChol 201-239 mg/dl borderline riskChol 240 mg/dl and greater high risk Cholesterol [Mass/Vol] 212 mg/dL High 140-200 [facility] Comment on above: Chol less than 200 m g/dl low riskChol 201-239 mg/dl borderline riskChol 240 mg/dl and greater high risk Order Comment: Reaso n for Exam Type 2 diabetes mellitus without complication, without long- Reason for Exam Hypercholesterolemia Reason for Exam Vitamin D deficiency Result Comment: Chol less than 200 mg/dl low risk Chol 201-239 mg/dl borderline risk Chol 240 mg/dl and greater high risk Performed By: #### C BC, CMP, LIPID #### [facility] [address] [place] [address] [place] Cholesterol in HDL [Mass/vol ume] in Serum or PlasmaOrdered By: Ajit Pettit on 02-20-2025 Cholesterol in HDL [Mass/Vol] Serum or plasma high density lipoprotein (HDL) cholesterol measurement [facility] Comment on above: HDL CHOL ATP-III CLA SSIFICATION Cardiovascular RiskHDL > or equal to 60 mg/dL LOWHDL < 40 mg/dL HIGH Cholesterol in HDL [Mass/Vol] 47 mg/dL Normal [facility] Comment on above: HDL CHOL ATP-III CLA SSIFICATION Cardiovascular RiskHDL > or equal to 60 mg/dL LOWHDL < 40 mg/dL HIGH Order Comment: Reaso n for Exam Type 2 diabetes mellitus without complication, without long- Reason for Exam Hypercholesterolemia Reason for Exam Vitamin D deficiency Result Comment: HDL CHOL ATP-III CLASSIFICATION Cardiovascular Risk HDL > or equal to 60 mg/dL LOW HDL < 40 mg/dL HIGH Performed By: #### C BC, CMP, LIPID #### [facility] [address] [place] [id number] [facility] Cholesterol in LDL Calc [Mas s/Vol]Ordered By: Ajit Pettit on 02-20-2025 Cholesterol in LDL [Mass/Vol] Cholesterol in LDL [Mass/volume] in Serum or Plasma by calculation High 0-100 [facility] Comment on above: LDL ATP III CLASSIFI CATIONLDL less than 100 mg/dL OptimalLDL 100-129 mg/dL Near or above optimalLDL 130-159 mg/dL Borderline highLDL 160-189 mg/dL HighLDL greater than 189 mg/dL Very high Cholesterol in LDL [Mass/Vol] 102 mg/dL High 0-100 [facility] Comment on above: LDL ATP III CLASSIFI CATIONLDL less than 100 mg/dL OptimalLDL 100-129 mg/dL Near or above optimalLDL 130-159 mg/dL Borderline highLDL 160-189 mg/dL HighLDL greater than 189 mg/dL Very high Cholesterol in VLDL Calc [Ma ss/Vol]Ordered By: Ajit Pettit on 02-20-2025 Cholesterol in VLDL [Mass/Vol] Cholesterol in VLDL [Mass/volume] in Serum or Plasma by calculation [facility] Cholesterol in VLDL [Mass/Vol] 62 mg/dL [facility] Complete Blood Count Auto Di ffon 02-20-2025 Mean Corpuscular HGB Conc 34.1 g/dL Normal 32.0-35.0 [facility] Comment on above: Order Comment: Reaso n for Exam Type 2 diabetes mellitus without complication, without long- Performed By: #### C BC, CMP, LIPID #### [facility] [address] [place] [id number] [facility] NRBC% 0.0 /100{WBC} Normal 0-0.5 [facility] Comment on above: Order Comment: Reaso n for Exam Type 2 diabetes mellitus without complication, without long- Performed By: #### C BC, CMP, LIPID #### [facility] [address] [place] [id number] [facility] Comprehensive Metabolic Pane rosa 02-20-2025 Albumin [Mass/Vol] 4.6 g/dL Normal 3.5-5.7 [facility] Comment on above: Order Comment: Reaso n for Exam Type 2 diabetes mellitus without complication, without long- Reason for Exam Hypercholesterolemia Reason for Exam Vitamin D deficiency Performed By: #### C BC, CMP, LIPID #### [facility] [address] [place] [address] [place] GFR/1.73 sq M.predicted MDRD (S/P/Bld) [Vol rate/Area] mL/min/{1.73_m2} Normal [facility] Comment on above: Order Comment: Reaso n for Exam Type 2 diabetes mellitus without complication, without long- Reason for Exam Hypercholesterolemia Reason for Exam Vitamin D deficiency Performed By: #### C BC, CMP, LIPID #### [facility] [address] [place] [address] Creatinine [Mass/volume] in Serum or PlasmaOrdered By: Ajit Pettit on 02-20-2025 Creatinine [Mass/Vol] Creatinine [Mass/v olume] in Serum or Plasma 0.60-1.20 [facility] Creatinine [Mass/Vol] 0.74 mg/dL Normal 0.60-1.20 [facility] Comment on above: Order Comment: Reaso n for Exam Type 2 diabetes mellitus without complication, without long- Reason for Exam Hypercholesterolemia Reason for Exam Vitamin D deficiency Performed By: #### C BC, CMP, LIPID #### [facility] [address] [place] [id number] [place] Eosinophils Auto (Bld) [#/Vo l]Ordered By: Ajit Pettit on 02-20-2025 Eosinophils (Bld) [#/Vol] Automated eosinophil count 0.0-0.45 [facility] Eosinophils [#/volume] in Bl ood by Automated countOrdered By: Ajit Pettit on 05-20-2025 Eosinophils (Bld) [#/Vol] 0.1 10*3/uL Normal 0.0-0.45 [facility] Comment on above: Order Comment: Reaso n for Exam Type 2 diabetes mellitus without complication, without long- Performed By: #### C BC, CMP, LIPID #### [facility] [address] Eosinophils/100 WBC Auto (Bl d)Ordered By: Ajit Spasic on 02-20-2025 Eosinophils/100 WBC (Bld) Automated eosinophil % . [facility] Eosinophils/100 leukocytes i n Blood by Automated countOrdered By: Ajit Spasic on 02-20-2025 Eosinophils/100 WBC (Bld) 0.3 % Normal . [facility] Comment on above: Order Comment: Reaso n for Exam Type 2 diabetes mellitus without complication, without long- Performed By: #### C BC, CMP, LIPID #### [facility] [address] [place] [address] [place] Erythrocyte distribution wid th Auto (RBC) [Ratio]Ordered By: Ajit Spasic on 02-20-2025 Erythrocyte distribution width (RBC) [Ratio] Erythrocyte distribution width [Ratio] by Automated count 11.9-15.3 [facility] Erythrocyte distribution wid th [Ratio] by Automated countOrdered By: Ajit Spasic on 02-20-2025 Erythrocyte distribution width (RBC) [Ratio] 13.0 % Normal 11.9-15.3 [facility] Comment on above: Order Comment: Reaso n for Exam Type 2 diabetes mellitus without complication, without long- Performed By: #### C BC, CMP, LIPID #### [facility] [address] [place] [address] [place] Erythrocytes [#/volume] in B lood by Automated countOrdered By: Ajit Yanac on 02-20-2025 RBC (Bld) [#/Vol] 4.62 10*6/uL Normal 3.60-5.00 [facility] Comment on above: Order Comment: Reaso n for Exam Type 2 diabetes mellitus without complication, without long- Performed By: #### C BC, CMP, LIPID #### [facility] [address] Globulin Calc (S) [Mass/Vol] Ordered By: Ajit Pettit on 02-20-2025 Globulin (S) [Mass/Vol] Serum globulin m easurement by calculation (mass/volume) [facility] Glucose [Mass/volume] in Ser um or PlasmaOrdered By: Ajit Pettit on 02-20-2025 Glucose [Mass/Vol] Glucose [Mass/volume ] in Serum or Plasma 70-100 [facility] Comment on above: ADA recommended refe rence rangeRandom Glucose Reference Range is dependent on time and content of last meal. Glucose of more than 200 mg/dL in a nonstressed, ambulatory subject supports the diagnosis of Diabetes Mellitus. Glucose [Mass/Vol] 79 mg/dL Normal 70-100 [facility] Comment on above: ADA recommended refe rence rangeRandom Glucose Reference Range is dependent on time and content of last meal. Glucose of more than 200 mg/dL in a nonstressed, ambulatory subject supports the diagnosis of Diabetes Mellitus. Order Comment: Reaso n for Exam Type 2 diabetes mellitus without complication, without long- Reason for Exam Hypercholesterolemia Reason for Exam Vitamin D deficiency Result Comment: [place] om Glucose Reference Range is dependent on time and content of last meal. Glucose of more than 200 mg/dL in a nonstressed, ambulatory subject supports the diagnosis of Diabetes Mellitus. ADA recommended reference range Performed By: #### C BC, CMP, LIPID #### [facility] [address] Hematocrit Auto (Bld) [Volum e fraction]Ordered By: Ajit Pettit on 02-20-2025 Hematocrit (Bld) [Volume fraction] Hematocrit [Volume Fraction] of Blood by Automated count 34.0-46.4 [facility] Hematocrit [Volume Fraction] of Blood by Automated countOrdered By: Ajit Pettit on 02-20-2025 Hematocrit (Bld) [Volume fraction] 40.7 % Normal 34.0-46.4 [facility] Comment on above: Order Comment: Reaso n for Exam Type 2 diabetes mellitus without complication, without long- Performed By: #### C BC, CMP, LIPID #### [facility] [address] Hemoglobin A1c/Hemoglobin.to [place] in BloodOrdered By: Ajit Pettit on 02-20-2025 HbA1c (Bld) [Mass fraction] Hemoglobin A1c percentage High 4.3-5.6 [facility] Comment on above: Increased risk for d iabetes: 5.7 - 6.4diabetes: >6.4glycemic control for adults with diabetes: <7.0 HbA1c (Bld) [Mass fraction] 6.4 % High 4.3-5.6 [facility] Comment on above: Increased risk for d iabetes: 5.7 - 6.4diabetes: >6.4glycemic control for adults with diabetes: <7.0 Order Comment: Reaso n for Exam Type 2 diabetes mellitus without complication, without long- Result Comment: Incr eased risk for diabetes: 5.7 - 6.4 diabetes: >6.4 glycemic control for adults with diabetes: <7.0 Performed By: #### C BC, CMP, LIPID #### [facility] [address] Hemoglobin [Mass/volume] in BloodOrdered By: Ajit Pettit on 02-20-2025 Hemoglobin (Bld) [Mass/Vol] Hemoglobin [Mass/volume] in Blood 11.8-15.4 [facility] Hemoglobin (Bld) [Mass/Vol] 13.9 g/dL Normal 11.8-15.4 [facility] Comment on above: Order Comment: Reaso n for Exam Type 2 diabetes mellitus without complication, without long- Performed By: #### C BC, CMP, LIPID #### [facility] [address] Leukocytes [#/volume] correc cherie for nucleated erythrocytes in Blood by Automated counOrdered By: Ajit Pettit on 02-20-2025 WBC corrected for nucl RBC Auto (Bld) [#/Vol] Leukocytes [#/volume] corrected for nucleated erythrocytes in Blood by Automated coun High 3.8-11.6 [facility] WBC corrected for nucl RBC Auto (Bld) [#/Vol] 18.1 10*3/uL High 3.8-11.6 [facility] Leukocytes [#/volume] in Blo od by Automated countOrdered By: Ajit Pettit on 02-20-2025 WBC (Bld) [#/Vol] 18.1 10*3/uL High 3.8-11.6 [facility] Comment on above: Order Comment: Reaso n for Exam Type 2 diabetes mellitus without complication, without long- Performed By: #### C BC, CMP, LIPID #### [facility] [address] [place] [id number] [facility] Lipid Panelon 02-20-2025 LDL Cholesterol,Calculated 102 mg/dL High 0-100 [facility] Comment on above: Order Comment: Reaso n for Exam Type 2 diabetes mellitus without complication, without long- Reason for Exam Hypercholesterolemia Reason for Exam Vitamin D deficiency Result Comment: LDL ATP III CLASSIFICATION LDL less than 100 mg/dL Optimal LDL 100-129 mg/dL Near or above optimal LDL 130-159 mg/dL Borderline high LDL 160-189 mg/dL High LDL greater than 189 mg/dL Very high Performed By: #### C BC, CMP, LIPID #### [facility] [address] [place] [id number] [facility] Triglyceride w/Reflex 313 mg/dL High 0-149 [facility] Comment on above: Order Comment: Reaso n for Exam Type 2 diabetes mellitus without complication, without long- Reason for Exam Hypercholesterolemia Reason for Exam Vitamin D deficiency Result Comment: TRIG ATP III CLASSIFICATION TRIG less than 150 mg/dL Normal TRIG 150-199 mg/dL Borderline high TRIG 200-500 mg/dL High TRIG greater than 500 mg/dL Very high Standard traceable to the Center for Disease Conrtrol and Prevention (CDC) test method. Performed By: #### C BC, CMP, LIPID #### [facility] [address] [place] [id number] [facility] VLDL CHOLESTEROL 62 mg/dL Normal [facility] Comment on above: Order Comment: Reaso n for Exam Type 2 diabetes mellitus without complication, without long- Reason for Exam Hypercholesterolemia Reason for Exam Vitamin D deficiency Performed By: #### C BC, CMP, LIPID #### [facility] [address] [place] [id number] [place] Lymphocytes Auto (Bld) [#/Vo l]Ordered By: Ajit Pettit on 02-20-2025 Lymphocytes (Bld) [#/Vol] Lymphocytes [#/volume] in Blood by Automated count High 1.00-4.8 [facility] Lymphocytes [#/volume] in Bl ood by Automated countOrdered By: Ajit Pettit on 02-20-2025 Lymphocytes (Bld) [#/Vol] 5.6 10*3/uL High 1.00-4.8 [facility] Comment on above: Order Comment: Reaso n for Exam Type 2 diabetes mellitus without complication, without long- Performed By: #### C BC, CMP, LIPID #### [facility] [address] Lymphocytes/100 WBC Auto (Bl d)Ordered By: Ajit Pettit on 02-20-2025 Lymphocytes/100 WBC (Bld) Lymphocytes/100 leukocytes in Blood by Automated count . [facility] Lymphocytes/100 leukocytes i n Blood by Automated countOrdered By: Ajit Pettit on 02-20-2025 Lymphocytes/100 WBC (Bld) 30.9 % Normal . [facility] Comment on above: Order Comment: Reaso n for Exam Type 2 diabetes mellitus without complication, without long- Performed By: #### C BC, CMP, LIPID #### [facility] [address] MCH Auto (RBC) [Entitic mass ]Ordered By: Ajit Pettit on 02-20-2025 MCH (RBC) [Entitic mass] MCH [Entitic mass] by Automated count 24.7-34.3 [facility] MCH [Entitic mass] by Automa cherie countOrdered By: Ajit Pettit on 02-20-2025 MCH (RBC) [Entitic mass] 30.0 pg Normal 24.7-34.3 [facility] Comment on above: Order Comment: Reaso n for Exam Type 2 diabetes mellitus without complication, without long- Performed By: #### C BC, CMP, LIPID #### [facility] [address] MCHC Auto (RBC) [Mass/Vol]Or dered By: Ajit Pettit on 05-20-2025 MCHC (RBC) [Mass/Vol] MCHC [Mass/volume] by Automated count 32.0-35.0 [facility] MCHC (RBC) [Mass/Vol] 34.1 g/dL 32.0-35.0 [facility] MCV Auto (RBC) [Entitic vol] Ordered By: Ajit Millanc on 02-20-2025 MCV (RBC) [Entitic vol] MCV [Entitic vol ume] by Automated count 80-100 [facility] MCV [Entitic volume] by Auto mated countOrdered By: Ajit Lariossic on 02-20-2025 MCV (RBC) [Entitic vol] 88.1 fL Normal 80-100 [facility] Comment on above: Order Comment: Reaso n for Exam Type 2 diabetes mellitus without complication, without long- Performed By: #### C BC, CMP, LIPID #### [facility] [address] [place] [address] [place] Monocytes Auto (Bld) [#/Vol] Ordered By: Ajit Millanc on 02-20-2025 Monocytes (Bld) [#/Vol] Automated blood monocyte count High 0.0-0.8 [facility] Monocytes [#/volume] in Bloo d by Automated countOrdered By: Ajit Millanc on 02-20-2025 Monocytes (Bld) [#/Vol] 0.9 10*3/uL High 0.0-0.8 [facility] Comment on above: Order Comment: Reaso n for Exam Type 2 diabetes mellitus without complication, without long- Performed By: #### C BC, CMP, LIPID #### [facility] [address] [place] [address] [place] Monocytes/100 WBC Auto (Bld) Ordered By: Ajit Millanc on 02-20-2025 Monocytes/100 WBC (Bld) Automated monocyte % . [facility] Monocytes/100 leukocytes in Blood by Automated countOrdered By: Ajit Harrietsic on 02-20-2025 Monocytes/100 WBC (Bld) 5.0 % Normal . [facility] Comment on above: Order Comment: Reaso n for Exam Type 2 diabetes mellitus without complication, without long- Performed By: #### C BC, CMP, LIPID #### [facility] [address] Neutrophils Auto (Bld) [#/Vo l]Ordered By: Ajit Pettit on 02-20-2025 Neutrophils (Bld) [#/Vol] Neutrophils [#/volume] in Blood by Automated count High 1.8-7.7 [facility] Neutrophils [#/volume] in Bl ood by Automated countOrdered By: Ajit Pettit on 02-20-2025 Neutrophils (Bld) [#/Vol] 11.4 10*3/uL High 1.8-7.7 [facility] Comment on above: Order Comment: Reaso n for Exam Type 2 diabetes mellitus without complication, without long- Performed By: #### C BC, CMP, LIPID #### [facility] [address] [place] [address] Neutrophils/100 WBC Auto (Bl d)Ordered By: Ajit Pettit on 02-20-2025 Neutrophils/100 WBC (Bld) Automated neutrophil % . [facility] Neutrophils/100 leukocytes i n Blood by Automated countOrdered By: Ajit Pettit on 02-20-2025 Neutrophils/100 WBC (Bld) 63.0 % Normal . [facility] Comment on above: Order Comment: Reaso n for Exam Type 2 diabetes mellitus without complication, without long- Performed By: #### C BC, CMP, LIPID #### [facility] [address] [place] [address] No Panel InformationOrdered By: Ajit Pettit on 02-20-2025 Estimated GFR (CKD-EPI) > 60.0 mL/Min [facility] Creatinine Clearance (Chem N/A [facility] Nucleated erythrocytes [Pres ence] in Blood by Automated countOrdered By: Ajit Pettit on 02-20-2025 Nucleated RBC Auto Ql (Bld) Nucleated erythrocytes [Presence] in Blood by Automated count 0-0.5 [facility] Nucleated RBC Auto Ql (Bld) 0.0 /100{WBC} 0-0.5 [facility] Platelet mean volume Auto (B ld) [Entitic vol]Ordered By: Ajit Pettit on 02-20-2025 Platelet mean volume (Bld) [Entitic vol] Platelet mean volume [Entitic volume] in Blood by Automated count 6.3-10.7 [facility] Platelet mean volume [Entiti c volume] in Blood by Automated countOrdered By: Ajit Pettit on 02-20-2025 Platelet mean volume (Bld) [Entitic vol] 8.2 fL Normal 6.3-10.7 [facility] Comment on above: Order Comment: Reaso n for Exam Type 2 diabetes mellitus without complication, without long- Performed By: #### C BC, CMP, LIPID #### [facility] [address] [place] [address] [place] Platelets Auto (Bld) [#/Vol] Ordered By: Ajit Pettit on 02-20-2025 Platelets (Bld) [#/Vol] Platelets [#/vol ume] in Blood by Automated count 150-450 [facility] Platelets [#/volume] in Bloo d by Automated countOrdered By: Ajit Pettit on 02-20-2025 Platelets (Bld) [#/Vol] 315 10*3/uL Normal 150-450 [facility] Comment on above: Order Comment: Reaso n for Exam Type 2 diabetes mellitus without complication, without long- Performed By: #### C BC, CMP, LIPID #### [facility] [address] [place] [id number] [place] Potassium [Moles/volume] in Serum or PlasmaOrdered By: Ajit Pettit on 02-20-2025 Potassium [Moles/Vol] Potassium [Moles/v olume] in Serum or Plasma 3.5-5.1 [facility] Potassium [Moles/Vol] 3.9 mmol/L Normal 3.5-5.1 [facility] Comment on above: Order Comment: Reaso n for Exam Type 2 diabetes mellitus without complication, without long- Reason for Exam Hypercholesterolemia Reason for Exam Vitamin D deficiency Performed By: #### C BC, CMP, LIPID #### [facility] [address] [place] [id number] [place] Protein [Mass/volume] in Ser um or PlasmaOrdered By: Ajit Pettit on 02-20-2025 Protein [Mass/Vol] Protein [Mass/volume ] in Serum or Plasma 6.4-8.9 [facility] Protein [Mass/Vol] 7.3 g/dL Normal 6.4-8.9 [facility] Comment on above: Order Comment: Reaso n for Exam Type 2 diabetes mellitus without complication, without long- Reason for Exam Hypercholesterolemia Reason for Exam Vitamin D deficiency Performed By: #### C BC, CMP, LIPID #### [facility] [address] RBC Auto (Bld) [#/Vol]Ordere d By: Ajit Pettit on 02-20-2025 RBC (Bld) [#/Vol] Erythrocytes [#/volu me] in Blood by Automated count 3.60-5.00 [facility] Serum globulin measurement b y calculation (mass/volume)Ordered By: Ajit Pettit on 02-20-2025 Globulin (S) [Mass/Vol] 2.7 g/dL Normal [facility] Comment on above: Order Comment: Reaso n for Exam Type 2 diabetes mellitus without complication, without long- Reason for Exam Hypercholesterolemia Reason for Exam Vitamin D deficiency Performed By: #### C BC, CMP, LIPID #### [facility] [address] Serum or plasma albumin/glob ulin mass ratioOrdered By: Ajit Pettit on 02-20-2025 Albumin/Globulin [Mass ratio] Serum or plasma albumin/globulin mass ratio [facility] Albumin/Globulin [Mass ratio] 1.7 {ratio} Normal [facility] Comment on above: Order Comment: Reaso n for Exam Type 2 diabetes mellitus without complication, without long- Reason for Exam Hypercholesterolemia Reason for Exam Vitamin D deficiency Performed By: #### C BC, CMP, LIPID #### [facility] [address] Serum or plasma anion gap de terminationOrdered By: Ajit Pettit on 02-20-2025 Anion gap [Moles/Vol] Serum or plasma an ion gap determination High 6.0-15.0 [facility] Anion gap [Moles/Vol] 15.1 mmol/L High 6.0-15.0 [facility] Comment on above: Order Comment: Reaso n for Exam Type 2 diabetes mellitus without complication, without long- Reason for Exam Hypercholesterolemia Reason for Exam Vitamin D deficiency Performed By: #### C BC, CMP, LIPID #### [facility] [address] Serum or plasma total choles terol/high density lipoprotein (HDL) cholesterol mass ratOrdered By: Ajit Pettit on 02-20-2025 Cholesterol.total/Suellen sterol in HDL [Mass ratio] Serum or plasma total cholesterol/high density lipoprotein (HDL) cholesterol mass rat <5.0 [facility] Cholesterol.total/Suellen sterol in HDL [Mass ratio] 4.5 {ratio} Normal <5.0 [facility] Comment on above: Order Comment: Reaso n for Exam Type 2 diabetes mellitus without complication, without long- Reason for Exam Hypercholesterolemia Reason for Exam Vitamin D deficiency Performed By: #### C ASHLEY CMP, LIPID #### [facility] [address] Sodium [Moles/volume] in Ser um or PlasmaOrdered By: Ajit Pettit on 02-20-2025 Sodium [Moles/Vol] Sodium [Moles/volume ] in Serum or Plasma Low 136-145 [facility] Sodium [Moles/Vol] 135 mmol/L Low 136-145 [facility] Comment on above: Order Comment: Reaso n for Exam Type 2 diabetes mellitus without complication, without long- Reason for Exam Hypercholesterolemia Reason for Exam Vitamin D deficiency Performed By: #### C BC, CMP, LIPID #### [facility] [address] [place] [address] [place] Triglyceride [Mass/volume] i n Serum or PlasmaOrdered By: Ajit Pettit on 02-20-2025 Triglyceride [Mass/Vol] Triglyceride [Ma ss/volume] in Serum or Plasma High 0-149 [facility] Comment on above: TRIG ATP III CLASSIF ICATIONTRIG less than 150 mg/dL NormalTRIG 150-199 mg/dL Borderline highTRIG 200-500 mg/dL High TRIG greater than 500 mg/dL Very highStandard traceable to the Center for Disease Conrtrol and Prevention (CDC) test method. Triglyceride [Mass/Vol] 313 mg/dL High 0-149 [facility] Comment on above: TRIG ATP III CLASSIF ICATIONTRIG less than 150 mg/dL NormalTRIG 150-199 mg/dL Borderline highTRIG 200-500 mg/dL High TRIG greater than 500 mg/dL Very highStandard traceable to the Center for Disease Conrtrol and Prevention (CDC) test method. Urea nitrogen [Mass/volume] in Serum or PlasmaOrdered By: Ajit Pettit on 02-20-2025 Urea nitrogen [Mass/Vol] Urea nitrogen [Mass/volume] in Serum or Plasma 04-27 [facility] Urea nitrogen [Mass/Vol] 8 mg/dL Normal 04-27 [facility] Comment on above: Order Comment: Reaso n for Exam Type 2 diabetes mellitus without complication, without long- Reason for Exam Hypercholesterolemia Reason for Exam Vitamin D deficiency Performed By: #### C BC, CMP, LIPID #### [facility] [address] Urine Cultureon 02-20-2025 Bacteria identified Cx Nom (U) Reason for Exam Urinary retention Urine 40,000 colonies/ml mixed bacterial skin contaminants 2 Days PERFORMED BY: [place] [address] PATHOLOGIST CONTENT ADMINISTRATOR MAURO ELLSWORTH M.D. Normal [facility] Comment on above: Performed By: #### C BC, CMP, LIPID #### [facility] [address] Urine cultureOrdered By: Melba Pettit on 02-20-2025 Bacteria identified Cx Nom (U) Urine culture [facility] Bacteria identified Cx Nom (U) 2 Days [facility] Vitamin D 25 Hydroxy Totalon 02-20-2025 Vitamin D 25 Hydroxy Total 76.2 ng/mL Normal 30-100 [facility] Comment on above: Order Comment: Reaso n for Exam Type 2 diabetes mellitus without complication, without long- Reason for Exam Hypercholesterolemia Reason for Exam Vitamin D deficiency Result Comment: MICHAEL MIN D STATUS 25(OH)VITAMIN D RANGE (ng/mL) Deficient <20 Insufficient 20 to <30 Sufficient 30 to 100 Reference: Dominique Restrepo, Gillian NINA, et al. Evaluation,treatment, and prevention of vitamin D deficiency; an Endocrine Society clinical practice guideline. JCEM. 2010; 96(7):1911-. PERFORMED BY: [facility] [address] [facility] [place] [id number] PATHOLOGIST CONTENT ADMINISTRATOR MAURO ELLSWORTH M.D. Performed By: #### C BC, CMP, LIPID #### [facility] [address] Vitamin D+Metabolites [Mass/ volume] in Serum or PlasmaOrdered By: Ajit Pettit on 02-20-2025 Vitamin D+Metabolites [Mass/Vol] Vitamin D+Metabolites [Mass/volume] in Serum or Plasma 30-100 [facility] Comment on above: VITAMIN D STATUS 25( [place])VITAMIN D RANGE (ng/mL) Deficient <20 Insufficient 20 to <30Sufficient 30 to 100Reference: Dominique Restrepo, Gillian NINA, et al. Evaluation,treatment, and prevention of vitamin D deficiency; an Endocrine Society clinical practice guideline. JCEM. 2010; 96(7):1911-. Vitamin D+Metabolites [Mass/Vol] 76.2 ng/mL 30-100 [facility] Comment on above: VITAMIN D STATUS 25( [place])VITAMIN D RANGE (ng/mL) Deficient <20 Insufficient 20 to <30Sufficient 30 to 100Reference: Dominique Restrepo, Gillian NINA, et al. Evaluation,treatment, and prevention of vitamin D deficiency; an Endocrine Society clinical practice guideline. JCEM. 2010; 96(7):1911-30. WBC Auto (Bld) [#/Vol]Ordere d By: Ajit Pettit on 02-20-2025 WBC (Bld) [#/Vol] Leukocytes [#/volume ] in Blood by Automated count High 3.8-11.6 [facility] Urine Cultureon 02-16-2025 Bacteria identified Cx Nom (U) 50,000 colonies/ml mixed bacterial skin contaminants 2 Days PERFORMED BY: [facility] [address] [facility] [place] [address] PATHOLOGIST CONTENT ADMINISTRATOR MAURO ELLSWORTH M.D. Normal [facility] Comment on above: Performed By: #### C BC, CMP, LIPID #### [facility] [address] [place] [id number] [facility] Urine cultureOrdered By: Naveed Bermudez on 02-16-2025 Bacteria identified Cx Nom (U) Urine culture [facility] Bacteria identified Cx Nom (U) 2 Days [facility] MM screening mammo BI w/CADo n 02-15-2025 MM screening mammo BI w/CAD [facility] [address] [facility] [address] [place] [address] Mammography Report Signed Patient: Rachel Mcgarry MR#: [id number] 1 : 1980 Acct:[id number] Age/Sex: 45 / F Adm Date: 02/15/25 Loc: [place] Room: Type: [facility] Attending Dr: Ajit DEJESUS Ordering Provider: OLEG Sharp Date of Service: 02/15/25 Procedure(s): MM screening mammo BI w/CAD Accession Number(s): ([id number]) MM/MM screening mammo BI w/CAD: Screening mammogram [...] Welch M.D. 02/15/2025 10:28 AM Dictation Location: [facility] Dictated By: Praveen Welch DO 02/15/25 1027 Signed By: 02/15/25 1028 Normal [facility] Urine Cultureon 02-12-2025 Bacteria identified Cx Nom (U) 20,000 colonies/ml mixed bacterial skin contaminants 2 Days PERFORMED BY: [place] [address] PATHOLOGIST CONTENT ADMINISTRATOR MAURO ELLSWORTH M.D. Normal [facility] Comment on above: Performed By: #### C BC, CMP, LIPID #### [address] Urine cultureOrdered By: Izzy bhandari Marker on 02-12-2025 Bacteria identified Cx Nom (U) Urine culture [facility] Bacteria identified Cx Nom (U) 2 Days [facility] ED Clinical Summaryon 2024 ED Clinical Summary ED Clinical Summary [place] [id number] ED Clinical Summary Person Information Name: RACHEL MCGARRY [facility] Age: 45 Years : 1980 Sex: Female Language: Samoan PCP: AJIT PETTIT CNP Marital Status: Visit [...] 12:25:32 01/24/2025 12:25:32 01/24/2025 12:25:32 ADDRESS: [address] [facility] [id number] PHYS DOC NOTES: MEDICAL INFORMATION: Prescriptions Given: New Medications [id number], [address], [place] [id number], [phone] ciprofloxacin (Cipro 500 mg Tab) 1 Tablets [...] EDUCATION INFORMATION: Instructions: Urinary Tract Infection, Adult, Fpyi-bp-[id number] Follow up: With: Address: When: AJIT PETTIT [address] [place] [address] Business (1) In 3 days 01/27/2025 Comments: Call Dr for diagnosis based follow up DIAGNOSIS: UTI symptoms Normal [facility] ED Note-Physicianon 01-25-20 ED Note-Physician ED Note-Physician Basic Information Time Seen: Hussein Ramey PA-C 01/24/2025 11:40 Chief Complaint c/o worsening UTI [...] day(s), # 6 tab(s), Refills(s) 0, Pharmacy: [facility][id number], 165, cm, 01/24/25 11:37:00 EDT, Height/Length Dosing, 70.1, kg, 01/24/25 11:37:00 EDT, Weight Dosing fluconazole, 300 mg = 2 tab(s), Tab, Oral, Once, Stop date 01/24/25 12:04:00 EDT, STAT, Start date 01/24/25 12:04:00 EDT, 01/24/25 12:04:00 EDT fluconazole, 150 mg = 1 tab(s), Oral, q7day, take on 01/31/2025, # 2 tab(s), Refills(s) 0, Pharmacy: [facility] #[id number], 165, cm, 01/24/25 11:37:00 EDT, Height/Length Dosing, 70.1, kg, 01/24/25 11:37:00 EDT, Weight Dosing ondansetron, 4 mg = 1 tab(s), Tab-Dis, Oral, Once, Stop date 01/24/25 12:04:00 EDT, STAT, Start date 01/24/25 12:04:00 EDT, 01/24/25 12:04:00 EDT ondansetron, 4 mg = 1 tab(s), Oral, q8hr, PRN Nausea/Vomiting, # 12 tab(s), Refills(s) 0, [id number], 165, cm, 01/24/25 11:37:00 EDT, Height/Length Dosing, 70.1, kg, 01/24/25 11:37:00 EDT, Weight Dosing phenazopyridine, 100 mg = 1 tab(s), Oral, TID, X 7 day(s), # 21 tab(s), Refills(s) 0, [id number], 165, cm, 01/24/25 11:37:00 [...] In 3 days 01/27/2025 EDT [address] [place] [address]- (more content not included)... Normal [facility] Comment on above: Result Comment: Elec tronically Signed By: Tanvir RIVAS, Hussein J.\.br\Date and Time Signed: 01/24/25 14:33 EDT\.br\Electronically Co-Signed By: Rosanna Sterling, Laura Knight\.br\Date and Time Co-Signed: 01/24/25 14:50 EDT ED Patient Summaryon 025 ED Patient Summary ED Patient Summary [address] [address] Patient Discharge Instructions Person Information Name: RACHEL MCGARRY Age: 45 Years Arrival Date: 01/24/2025 11:30:26 Discharge Diagnosis: UTI symptoms Primary Care Physician: AJIT PETTIT CNP Provider Information Primary Provider: Laura Marte M.D. Advanced Pain Management Physician:Hussein Ramey PA-C The exam and treatment you received in the Emergency Department were for an urgent problem and are not intended as complete care. It is important that you follow up with a doctor, nurse practitioner, or physician???s assistant teacher primary for ongoing care. If your symptoms become [...] Instructions: With: Address: When: AJIT PETTIT [address] [facility] [place] [address] [facility] () In 3 days 01/27/2025 Comments: Call Dr for diagnosis based follow up In the event that this physician does not participate in your insurance network, please consult with your insurance company to find a nearby participating provider. Patient Education Materials: Urinary Tract Infection, Adult, Redo-ht-Uvon A MESSAGE TO ALL PATIENTS REGARDING OPIOIDS PRESCRIPTION OPIOIDS: WHAT YOU NEED TO KNOW Prescription opioids can be used to help relieve kqmjqwxj-sn-jztkez pain and are often prescribed following a [...] be st (more content not included)... Normal [facility] UA with Cult Rflxon 01-25-20 25 Bacteria Auto Ql (U) Trace Normal Trace Fish [facility] Comment on above: Performed By: #### 4 [id number] #### [facility] [address] [place] [address] Bilirubin Ql (U) Negative Normal Negative [facility] Comment on above: Performed By: #### 4 [id number] #### [facility] [address] [place] [address] Clarity (U) Turbid Abnormal Clear [facility] Comment on above: Performed By: #### 4 [id number] #### [facility] [address] [place] [address] Color (U) Yellow Normal Yellow [facility] Comment on above: Result Comment: Micr oscopic readings are only performed on those samples that meet specific criteria set forth by [facility]. Performed By: #### 4 [id number] #### [facility] [address] [place] [address] Epithelial cells.squamous Auto (Urine sed) [#/Area] >10 Invalid Interpretation Code [facility] Comment on above: Performed By: #### 4 [id number] #### [facility] [address] [place] [address] Glucose Ql (U) 1+ mg/dL Abnormal Negative [facility] Comment on above: Performed By: #### 4 [id number] #### [facility] [address] [place] [address] Hemoglobin Auto test strip (U) [Mass/Vol] Negative Normal Negative [facility] Comment on above: Performed By: #### 4 [id number] #### [facility] [address] [place] [address] Ketones Auto test strip Ql (U) 1+ mg/dL Abnormal Negative [facility] Comment on above: Performed By: #### 4 [id number] #### [facility] [address] [place] [address] Leukocyte esterase Auto test strip Ql (U) Negative Normal Negative [facility] Comment on above: Performed By: #### 4 [id number] #### [facility] [address] [place] [address] Mucus Auto Ql (U) Trace Normal Negative [facility] Comment on above: Performed By: #### 4 [id number] #### [facility] [address] [place] [address] Nitrite Auto test strip Ql (U) Negative Normal Negative [facility] Comment on above: Performed By: #### 4 [id number] #### [facility] [address] [place] [address] pH (U) 6.0 [pH] Invalid Interpretation Code 5.0-9.0 [facility] Comment on above: Performed By: #### 4 [id number] #### [facility] [address] [place] [address] Protein Ql (U) Negative Normal Negative [facility] Comment on above: Performed By: #### 4 [id number] #### [facility] [address] [place] [address] RBC Ql (U) 4-20 Abnormal 0-3 [facility] Comment on above: Performed By: #### 4 [id number] #### [facility] [address] [place] [address] Specific gravity (U) [Rel density] 1.015 Invalid Interpretation Code 1.005-1.03 0 [facility] Comment on above: Performed By: #### 4 [id number] #### [facility] [address] [place] [address] Urobilinogen (U) [Mass/Vol] Negative Normal Negative [facility] Comment on above: Performed By: #### 4 [id number] #### [facility] [address] [place] [address] WBC Auto (Urine sed) [#/Area] 0-5 Normal 0-5 [facility] Comment on above: Performed By: #### 4 [id number] #### [facility] [address] [place] [address] Yeast.budding Computer assisted Ql (U) 1+ CD:[id number] Abnormal [facility] Comment on above: Performed By: #### 4 [id number] #### [facility] [address] [place] [address] Type of Urine collection method Clean Catch Normal [facility] Comment on above: Performed By: #### 4 [id number] #### [facility] [address] [place] [address] URINALYSISOrdered By: SYSTEM SYSTEM on 01-24-2025 Bacteria Auto Ql (U) Trace /HPF Normal Trace/HPF [facility] UA Auto SS Bilirubin Ql (U) Negative Normal Negativemg /dL [facility] UA Auto SS Clarity (U) Turbid *ABN* (01/24/25 11:39 AM) Invalid Interpretation Code Clear [facility] UA Auto SS Color (U) Yellow 1 (01/24/25 11:39 AM) Normal Yellow [facility] UA Auto SS Comment on above: Interpretive Data: M icroscopic readings are only performed on those samples that meet specific criteria set forth by [facility]. Epithelial cells.squamous Auto (Urine sed) [#/Area] >10 graded/HPF Invalid Interpretation Code [facility] UA Auto SS Glucose Ql (U) 1+ mg/dL Invalid Interpretation Code Negativemg /dL [facility] UA Auto SS Hemoglobin Auto test strip (U) [Mass/Vol] Negative Normal Negativemg /dL [facility] UA Auto SS Ketones Auto test strip Ql (U) 1+ mg/dL Invalid Interpretation Code Negativemg /dL [facility] U[facility] Auto SS Leukocyte esterase Auto test strip Ql (U) Negative Normal NegativeLe u/uL [facility] UA Auto SS Mucus Auto Ql (U) Trace graded/LPF Normal Negati vegr aded/LPF [facility] U[facility] Auto SS Nitrite Auto test strip Ql (U) Negative Normal Negativemg /dL [facility] Auto SS pH (U) 6.0 *NA* (01/24/25 11:39 AM) Invalid Interpretation Code 5.0 - 9.0 [facility] Auto SS Protein Ql (U) Negative Normal Negativemg /dL [facility] Auto SS RBC Ql (U) 4-20 graded/HPF Invalid Interpretation Code 0-3graded/ HPF [facility] U[facility] Auto SS Specific gravity (U) [Rel density] 1.015 *NA* (01/24/25 11:39 AM) Invalid Interpretation Code 1.005 - 1.030 [facility] Auto SS Urobilinogen (U) [Mass/Vol] Negative Normal Negativemg /dL [facility] Auto SS WBC Auto (Urine sed) [#/Area] 0-5 graded/HPF Normal 0-5graded/ HPF [facility] U[facility] Auto SS Yeast.budding Computer assisted Ql (U) 1+ graded/HPF Invalid Interpretation Code [facility] UA Auto SS URINALYSISOrdered By: Mati Reilly on 01-24-2025 UA Spec Desc Clean Catch (01/24/25 11:39 AM) Normal [facility] UA Auto SS Urine Cultureon 01-18-2025 Bacteria identified Cx Nom (U) 50,000 colonies/ml mixed bacterial skin contaminants 2 Days PERFORMED BY: [place] [address] PATHOLOGIST CONTENT ADMINISTRATOR MAURO ELLSWORTH M.D. Normal [facility] Comment on above: Performed By: #### C BC, CMP, LIPID #### [facility] [address] [place] [address] Urine cultureOrdered By: Naveed Rivero on 01-18-2025 Bacteria identified Cx Nom (U) Urine culture [facility] Bacteria identified Cx Nom (U) 2 Days [facility] US breast LT limitedon 09-06 breast LT limited [facility] [address] [place] [address] Mammography Report Signed Patient: Rachel Mcgarry MR#: [id number] 1 : 1980 Acct:[id number] Age/Sex: 44 / F ADM Date: 09/06/24 Loc: [place] Room: Type: [facility] Attending Dr: Ajit DEJESUS Copies to: OLEG Sharp Ordering Provider: OLEG Sharp Date of Service: 09/06/24 MM/MM diagnostic mammo LT w/CAD: Breast pain, left ([id number]) US/US breast LT limited: Breast pain, left [...] Eda Yañez M.D.09/06/2024 8:56 AM Dictation Location: [facility] Transcribed By: ROSA MARIA 09/06/24855 Dictated By: Eda Yañez MD 09/06/24818 Signed By: 09/06/24855 Normal [facility] Glucose Poct Glucometerson 1 11-06-2023 Commemt1 Glu2: Cleaned Meter Normal [facility] Comment on above: Result Comment: PERF ORMED BY: [place] [address] PATHOLOGIST CONTENT ADMINISTRATOR MAURO ELLSWORTH M.D. Performed By: #### C BC, CMP, LIPID #### [address] Glucose [Mass/Vol] 132 mg/dL Normal [facility] Comment on above: Result Comment: [place] Glucose Reference Range is dependent on time and content of last meal. Glucose of more than 200 mg/dL in a nonstressed, ambulatory subject supports the diagnosis of Diabetes Mellitus. Performed By: #### C BC, CMP, LIPID #### [address] [address] [facility] Pathology Request for Lab Co rpon 09-05-2024 Pathology Request for Lab Silvia Normal [facility] Comment on above: Order Comment: PATH SENDOUT-GI SPECIMEN Result Comment: See report. Scanned copy available in EMR. PERFORMED BY: [place] [address] PATHOLOGIST CONTENT ADMINISTRATOR MAURO ELLSWORTH M.D. Performed By: #### P ATH TO [facility] #### [address] [address] [facility] US breast RT limitedon 07-24 US breast RT limited [facility] Main [place] [id number] Ultrasound Report Signed Patient: Rachel Mcgarry MR#: [id number] 1 : 1980 Acct:[id number] Age/Sex: 44 / F ADM Date: 07/24/24 Loc: [place] Room: Type: [facility] Attending Dr: Ajit DEJESUS Ordering [...] Praveen Welch M.D.07/25/2024 10:48 AM Dictation Location: [facility] Tech: Dominique Singh Transcribed By: [facility] 07/25/24 1048 Dictated By: Praveen Welch DO 07/24/24 1642 Signed By: 07/25/24 1048 Normal [facility] B hCG Qualon 07-09-2024 Beta HCG ( test) Ql Negative Normal [facility] Comment on above: Performed By: #### 2 [id number] #### [facility] [address] [place] [address] BMPon 07-09-2024 Anion gap [Moles/Vol] 12 mmol/L Normal 6-16 [facility] Comment on above: Performed By: #### 2 [id number] #### [facility] [address] [place] [address] Calcium [Mass/Vol] 8.9 mg/dL Normal 8.9-11.1 [facility] Comment on above: Performed By: #### 2 [id number] #### [facility] [address] [place] [address] Chloride [Moles/Vol] 99 mmol/L Low 101-111 Fish [facility] Comment on above: Performed By: #### 2 [id number] #### [facility] [address] [place] [address] CO2 [Moles/Vol] 24 mmol/L Normal 21-31 [facility] Comment on above: Performed By: #### 2 [id number] #### [facility] [address] [place] [address] Creatinine [Mass/Vol] 0.5 mg/dL Normal 0.5-1.3 [facility] Comment on above: Performed By: #### 2 [id number] #### [facility] [address] [place] [address] Glucose [Mass/Vol] 149 mg/dL Normal 55-199 [facility] Comment on above: Performed By: #### 2 [id number] #### [facility] [address] [place] [address] Potassium [Moles/Vol] 4.1 mmol/L Normal 3.5-5.3 [facility] Comment on above: Performed By: #### 2 [id number] #### [facility] [address] [place] [address] Sodium [Moles/Vol] 131 mmol/L Low 135-145 [facility] Comment on above: Performed By: #### 2 [id number] #### [facility] [address] [place] [address] Urea nitrogen [Mass/Vol] 9 mg/dL Normal 5-21 [facility] Comment on above: Performed By: #### 2 [id number] #### [facility] [address] [place] [address] Urea nitrogen/Creatinine [Mass ratio] 18 No Units Normal 10-20 [facility] Comment on above: Performed By: #### 2 [id number] #### [facility] [address] [place] [address] CBC w/ Auto Diffon 10-06-202 4 Basophils/100 WBC (Bld) 1.0 % Normal 0.0-2.0 [facility] Comment on above: Performed By: #### 2 [id number] #### [facility] [address] [place] [address] Basophils/Leukocytes Auto (Bld) [Pure # fraction] 0.2 E9/L Normal 0.0-0.2 [facility] Comment on above: Performed By: #### 2 [id number] #### [facility] [address] [place] [address] Eosinophils (Bld) [#/Vol] 0.1 E9/L Normal 0.0-0.5 [facility] Comment on above: Performed By: #### 2 [id number] #### [facility] [address] [place] [address] Eosinophils/100 WBC (Bld) 0.8 % Normal 0.0-8.0 [facility] Comment on above: Performed By: #### 2 [id number] #### [facility] [address] [place] [address] Erythrocyte distribution width (RBC) [Ratio] 13.2 % Normal 10.9-14.2 [facility] Comment on above: Performed By: #### 2 [id number] #### [facility] [address] [place] [address] Hematocrit (Bld) [Volume fraction] 38.9 % Normal 34.0-46.0 [facility] Comment on above: Performed By: #### 2 [id number] #### [facility] [address] [place] [address] Hemoglobin (Bld) [Mass/Vol] 13.4 g/dL Normal 12.0-16.0 [facility] Comment on above: Performed By: #### 2 [id number] #### [facility] [address] [place] [address] Lymphocytes (Bld) [#/Vol] 3.7 E9/L Normal 1.0-4.0 [facility] Comment on above: Performed By: #### 2 [id number] #### [facility] [address] [place] [address] Lymphocytes/100 WBC (Bld) 24.7 % Normal 14.0-50.0 [facility] Comment on above: Performed By: #### 2 [id number] #### [facility] [address] [place] [address] MCH (RBC) [Entitic mass] 30.4 pg Normal 27.0-34.0 [facility] Comment on above: Performed By: #### 2 [id number] #### [facility] [address] [place] [address] MCHC (RBC) [Mass/Vol] 34.5 g/dL Normal 31.4-36.0 [facility] Comment on above: Performed By: #### 2 [id number] #### [facility] [address] [place] [address] MCV (RBC) [Entitic vol] 88.1 fL Normal 80.0-100.0 [facility] Comment on above: Performed By: #### 2 [id number] #### [facility] [address] [place] [address] Monocytes (Bld) [#/Vol] 0.7 E9/L Normal 0.2-1.0 [facility] Comment on above: Performed By: #### 2 [id number] #### [facility] [address] [place] [address] Neutrophils (Bld) [#/Vol] 10.3 E9/L High 2.0-7.5 [facility] Comment on above: Performed By: #### 2 [id number] #### [facility] [address] [place] [address] Neutrophils/100 WBC (Bld) 69.1 % Normal 36.0-75.0 [facility] Comment on above: Performed By: #### 2 [id number] #### [facility] [address] [place] [address] Platelet mean volume (Bld) [Entitic vol] 8.3 fL Normal 6.4-10.8 [facility] Comment on above: Performed By: #### 2 [id number] #### [facility] [address] [place] [address] Platelets (Bld) [#/Vol] 319.0 E9/L Normal 150. 0-500. 0 [facility] Comment on above: Performed By: #### 2 [id number] #### [facility] [address] [place] [address] RBC (Bld) [#/Vol] 4.4 E12/L Normal 4.3-5.9 [facility] Comment on above: Performed By: #### 2 [id number] #### [facility] [address] [place] [address] WBC corrected for nucl RBC Auto (Bld) [#/Vol] 14.9 E9/L High 4.0-11.0 [facility] Comment on above: Result Comment: Kaela pheral smear review performed. Performed By: #### 2 [id number] #### [facility] [address] [place] [address] CHEMISTRYOrdered By: SYSTEM SYSTEM on 07-09-2024 Troponin [...] Sensitivity Troponin I Instructions For Use, [place] [place], May 2018) Albumin [Mass/Vol] 4.0 g/dL Normal [...] Sensitivity Troponin I Instructions For Use, [place], May 2018) Urea nitrogen [Mass/Vol] 9 mg/dL Normal 5 - 21 mg/dL [facility] Urea nitrogen/Creatinine [Mass ratio] 18 mg/mg Normal 10 - 20 [facility] COAGULATIONOrdered By: Jazmyne Phillips on 07-09-2024 aPTT Coag (PPP) [Time] 28.9 s Normal 25.1 - 36.5 second(s) [facility] Auto Coag Comment on above: Interpretive Data: P cristophermetfelix 15 days - 4 weeks 1 - 5 months 6 - 11 months 1 - 5 years 6 - 10 years 11 - 17 years PTT Mean: 35.4 (27.6-45.6) Mean: 33.5 (24.8-40.7) Mean: 32.4 (25.1-40.7) Mean: 31.6 (24.0-39.2) Mean: 31.6 (26.9-38.7) Mean: 31.0 (24.6-38.4) Pediatric Reference ranges were obtained from a study by Vishal Lnag et al. prepared from 1437 samples obtained at 7 different centers using the same coagulation reagent and instrumentation as [facility]. Currently there are no coagulation studies available worldwide for children to 14 days, and no normal ranges. Heparin therapeutic range (represented by Anti-Factor Xa activity of 0.2 - 0.4 U/mL) corresponds to PTT of 56.6 - 109.0 sec. INR Coag (PPP) [Relative time] 0.85 {INR} Invalid Interpretation Code [facility] Co[facility] Comment on above: Interpretive Data: I NR results are specifically intended to assess patients stabilized on long-term Anticoagulation therapy suggested INR s Less Intensive Anticoagulation 2.0 3.0 Conventional Range 3.0 4.5 PT Coag (PPP) [Time] 9.5 s Normal 9.4 - 1 2.5 second(s) [facility] Auto Coag Comment on above: Interpretive Data: [...] same coagulation reagent and instrumentation as [facility]. Currently there are no coagulation studies available worldwide for children to 14 days, and no normal ranges. ED Clinical Summaryon 2023 ED Clinical Summary ED Clinical Summary [place] [id number] ED Clinical Summary Person Information Name: RACHEL MCGARRY [facility] Age: 44 Years : 1980 Sex: Female Language: Samoan PCP: JAIT PETTIT CNP Marital Status: Phone: [phone] Visit Id: Visit Reason: Syncope/Near syncope; Body [...] 07/09/2024 15:24:59 07/09/2024 15:24:59 07/09/2024 15:24:59 ADDRESS: [address] [place] [phone] PHYS DOC NOTES: MEDICAL INFORMATION: Prescriptions Given: [...] up: With: Address: When: AJIT PETTIT [address] [place] [address] [facility] (1) In 3 days 07/12/2024 [...] worsening symptoms. DIAGNOSIS: Malaise; Viral syndrome Normal [facility] ED Clinical Summary ED Clinical Summary [address] [address] ED Clinical Summary Person Information Name: RACHEL MCGARRY [facility] Age: 44 Years : 1980 Sex: Female Language: Samoan PCP: AJIT PETTIT CNP Marital Status: Phone: [phone] Visit Id: Visit Reason: Syncope/Near syncope; Body [...] 07/09/2024 13:32:08 Discharge Request 07/09/2024 14:17:25 ADDRESS: [address] [place] [phone] PHYS DOC NOTES: MEDICAL INFORMATION: Prescriptions Given: [...] Adult Follow up: With: Address: When: AJIT WILVER [address] [place] [address] [employer] In 3 days 07/12/2024 Comments: Call the [...] worsening symptoms. DIAGNOSIS: Malaise; Viral syndrome Normal [facility] ED Note-Physicianon 07-09-20 ED Note-Physician ED [...] of abd and x-ray and went to [facility] History of Present Illness 44-year-old female to the emergency department with chief complaint of feeling unwell for the last week. She reports she has had malaise, fatigue, intermittently shaky, felt lightheaded earlier. She reports that she has been seen both at [facility] and some urgency department in [facility] emergency department this week for [...] dry clinically. Previous labs and imaging from [facility] in [facility] reviewed. Aside from her mild leukocytosis and [...] slight leukocytosis, down from previous labs at [facility]. Otherwise unremarkable. Mild hyponatremia which appears in [...] PETTIT In 3 days 07/12/2024 EDT [address] [place] [address]- Business (1) Additional Instructions: Call the office [...] worsening symp (more content not included)... Normal [facility] Comment on above: Result Comment: Elec tronically Signed By: Ambrose Cedeño DO\.dany\Date and Time Signed: 07/09/24 14:21 EDT ED Patient Summaryon 024 ED Patient Summary ED Patient Summary [address] [address] Patient Discharge Instructions Person Information Name: RACHEL MCGARRY Age: 44 Years Arrival Date: 07/09/2024 12:39:08 Discharge Diagnosis: Malaise; Viral syndrome Primary Care Physician: AJIT PETTIT CNP Provider Information Primary Provider: Ambrose Cedeoñ DO Advanced Pain Management Physician:None The exam and treatment you received in the Emergency Department were for an urgent problem and are not intended as complete care. It is important that you follow up with a doctor, nurse practitioner, or physician?s assistant teacher primary for ongoing care. If your symptoms become [...] With: Address: When: AJIT PETTIT [address] [place] [address] [employer] (1) In 3 days 07/12/2024 Comments: Call [...] opioids can be used to help relieve easqphqe-xo-qqleri pain and are often prescribed following a [...] place a (more content not included)... Normal [facility] ED Patient Summary ED Patient Summary [place] [id number] Patient Discharge Instructions Person Information Name: RACHEL MCGARRY Age: 44 Years Arrival Date: 07/09/2024 12:39:08 Discharge Diagnosis: Malaise; Viral syndrome Primary Care Physician: AJIT PETTIT CNP Provider Information Primary Provider: Ambrose Cedeño DO Advanced Pain Management Physician:None The exam and treatment you received in the Emergency Department were for an urgent problem and are not intended as complete care. It is important that you follow up with a doctor, nurse practitioner, or physician?s assistant teacher primary for ongoing care. If your symptoms become [...] Instructions: With: Address: When: AJIT PETTIT [address] [place] [address] [employer] (1) In 3 days 07/12/2024 Comments: Call [...] opioids can be used to help relieve egjcayze-hl-vexvec pain and are often prescribed following a [...] place a (more content not included)... Normal [facility] HEMATOLOGYOrdered By: SYSTEM SYSTEM on 07-09-2024 [...] 07-09-2024 Albumin [Mass/Vol] 4.0 g/dL Normal 3.3-5.0 [facility] Comment on above: Performed By: #### 2 [id number] #### [facility] [address] [place] [address] Albumin/Globulin (S) [Mass conc ratio] 1.3 Normal 1.1-2.2 [facility] Comment on above: Performed By: #### 2 [id number] #### [facility] [address] [place] [address] ALP [Catalytic activity/Vol] 65 Int._Unit/L Normal 21-98 [facility] Comment on above: Performed By: #### 2 [id number] #### [facility] [address] [place] [address] ALT No additional P-5'-P [Catalytic activity/Vol] 10 Int._Unit/L Normal 6-46 [facility] Comment on above: Performed By: #### 2 [id number] #### [facility] [address] [place] [address] AST [Catalytic activity/Vol] 11 Int._Unit/L Normal 5-43 [facility] Comment on above: Performed By: #### 2 [id number] #### [facility] [address] [place] [address] Bilirubin [Mass/Vol] 0.2 mg/dL Normal 0.0-1.1 [facility] Comment on above: Performed By: #### 2 [id number] #### [facility] [address] [place] [address] Bilirubin.direct [Mass/Vol] 0.0 mg/dL Normal 0.0-0.4 [facility] Comment on above: Performed By: #### 2 [id number] #### [facility] [address] [place] [address] Bilirubin.indirect [Mass or moles/Vol] 0.2 mg/dL Normal 0.1-0.9 [facility] Comment on above: Performed By: #### 2 [id number] #### [facility] [address] [place] [address] Globulin (S) [Mass/Vol] 3.2 g/dL Normal 1.4-4.0 [facility] Comment on above: Performed By: #### 2 [id number] #### [facility] [address] [place] [address] Protein [Mass/Vol] 7.2 g/dL Normal 6.0-7.8 [facility] Comment on above: Performed By: #### 2 [id number] #### [facility] [address] [place] [address] PT & PTTon 07-09-2024 aPTT Coag (PPP) [Time] 28.9 second(s) Normal 25.1-36.5 [facility] Comment on above: Result Comment: Para [...] same coagulation reagent and instrumentation as [facility]. Currently there are no coagulation studies available worldwide for children to 14 days, and no normal ranges. Heparin therapeutic range (represented by Anti-Factor Xa activity of 0.2 - 0.4 U/mL) corresponds to PTT of 56.6 - 109.0 sec. Performed By: #### 1 [id number] #### [facility] [address] [place] [address] INR Coag (PPP) [Relative time] 0.85 {INR} Invalid Interpretation Code [facility] Comment on above: Result Comment: INR results are specifically intended to assess patients stabilized on long-term Anticoagulation therapy suggested INR?s ?Less Intensive Anticoagulation? 2.0 ? 3.0 Conventional Range 3.0 ? 4.5 Performed By: #### 1 [id number] #### [facility] [address] [place] [address] PT Coag (PPP) [Time] 9.5 second(s) Normal 9.4-12.5 [facility] Comment on above: Result Comment: 15 [...] same coagulation reagent and instrumentation as [facility]. Currently there are no coagulation studies available worldwide for children to 14 days, and no normal ranges. Performed By: #### 1 [id number] #### [facility] [address] [place] [address] SEROLOGYOrdered By: Rosanna Phillips on 07-09-2024 Beta HCG ( test) Ql Negative (07/09/24 12:50 PM) Normal [facility] Man Sero Troponin 0 Hr.on 07-09-2024 Troponin HS 3.00 pg/mL Low 10.10-27.1 0 [facility] Comment on above: Result Comment: The 95% CI (Confidence Interval) PPV (Positive Predictive Value) for myocardial infarction in females is 38 pg/mL, in males 51 pg/mL. The results should be used in conjunction with clinical conditions of myocardial infarction. (Access High Sensitivity Troponin I Instructions For Use, Gustavo Patti, May 2018) Performed By: #### 1 [id number] #### [facility] [address] [place] [address] Troponin 1 Hr.on 07-09-2024 Troponin HS 3.60 pg/mL Low 10.10-27.1 0 [facility] Comment on above: Result Comment: The 95% CI (Confidence Interval) PPV (Positive Predictive Value) for myocardial infarction in females is 38 pg/mL, in males 51 pg/mL. The results should be used in conjunction with clinical conditions of myocardial infarction. (Access High Sensitivity Troponin I Instructions For Use, Gustavo Patti, May 2018) Performed By: #### 1 [id number] #### [facility] [address] [place] [address] XR Chest Single Viewon 07-09 XR Chest [...] mGy = na DAP = na Normal [facility] eGFRon 07-09-2024 eGFR 117 mL/min/1.73 m2 Normal >=59 [facility] Comment on above: Performed By: #### 1 [id number] #### [facility] [address] [place] [address] Alanine aminotransferase [En zymatic activity/volume] in Serum or PlasmaOrdered By: Jono Ferrari on 07-06-2024 ALT [Catalytic activity/Vol] 9 U/L Normal [facility] Comment on above: Performed By: #### C MP, CBC, LIPASE #### [facility] [address] [place] [address] [place] Albumin [Mass/volume] in Ser um or Plasma by Bromocresol green (BCG) dye binding methoOrdered By: Jono Ferrari on 07-06-2024 Albumin BCG dye [Mass/Vol] 4.2 g/dL 3.5-5.7 [facility] Alkaline phosphatase [Enzyma tic activity/volume] in Serum or PlasmaOrdered By: Jono Ferrari on 07-06-2024 ALP [Catalytic activity/Vol] 59 U/L Normal 34-104 [facility] Comment on above: Performed By: #### C MP, CBC, LIPASE #### [address] Aspartate aminotransferase [ Enzymatic activity/volume] in Serum or PlasmaOrdered By: Jono Ferrari on 07-06-2024 AST [Catalytic activity/Vol] 10 U/L Low 13-39 [facility] Comment on above: Performed By: #### C MP, CBC, LIPASE #### [address] Automated basophil %Ordered By: Jono Ferrari on 07-06-2024 Basophils/100 WBC (Bld) 1.1 % Normal . [facility] Comment on above: Performed By: #### C MP, CBC, LIPASE #### [address] Automated basophil countOrde red By: Jono Ferrari on 07-06-2024 Basophils (Bld) [#/Vol] 0.3 10*3/uL High 0.0-0.2 [facility] Comment on above: Result Comment: PERF ORMED BY: [place] [address] PATHOLOGIST CONTENT ADMINISTRATOR RIDGE HUERTA M.D. Performed By: #### C MP, CBC, LIPASE #### [address] Automated blood monocyte cou ntOrdered By: Jono Ferrari on 07-06-2024 Monocytes (Bld) [#/Vol] 1.6 10*3/uL High 0.0-0.8 [facility] Comment on above: Performed By: #### C MP, CBC, LIPASE #### [place] [id number] [place] Automated eosinophil %Ordere d By: Jono Ferrari on 07-06-2024 Eosinophils/100 WBC (Bld) 0.6 % Normal . [facility] Comment on above: Performed By: #### C MP, CBC, LIPASE #### [facility] [address] [place] [address] Automated eosinophil countOr dered By: Jono Ferrari on 07-06-2024 Eosinophils (Bld) [#/Vol] 0.1 10*3/uL Normal 0.0-0.45 [facility] Comment on above: Performed By: #### C MP, CBC, LIPASE #### [address] Automated monocyte %Ordered By: Jono Ferrari on 07-06-2024 Monocytes/100 WBC (Bld) 6.9 % Normal . [facility] Comment on above: Performed By: #### C MP, CBC, LIPASE #### [address] Automated neutrophil %Ordere d By: Jono Ferrari on 07-06-2024 Neutrophils/100 WBC (Bld) 66.1 % Normal . [facility] Comment on above: Performed By: #### C MP, CBC, LIPASE #### [address] Bilirubin.total [Mass/volume ] in Serum or PlasmaOrdered By: Jono Ferrari on 07-06-2024 Bilirubin [Mass/Vol] 0.3 mg/dL Normal 0.3-1.0 [facility] Comment on above: Performed By: #### C MP, CBC, LIPASE #### [address] abdomen pelvis w marcion CT abdomen pelvis w con [facility] [place] [address] [place] [address] CT Scan Report Signed Patient: Rachel Mcgarry MR#: [id number] 1 : 1980 Acct:[id number] Age/Sex: 44 / F ADM Date: 07/06/24 [...] Praveen Welch M.D.07/06/2024 7:13 PM Dictation Location: [place] [address] Transcribed By: [facility] 07/06/241912 Dictated By: Praveen Welch DO 07/06/241910 Signed By: 07/06/241912 Normal [facility] Calcium [Mass/volume] in Ser um or PlasmaOrdered By: Jono Ferrari on 07-06-2024 Calcium [Mass/Vol] 9.2 mg/dL Normal 8.6-10.3 [facility] Comment on above: Performed By: #### C MP, CBC, LIPASE #### [address] Carbon dioxide, total [Moles /volume] in Serum or PlasmaOrdered By: Jono Ferrari on 07-06-2024 CO2 [Moles/Vol] 25.2 mmol/L Normal 21.0-31.0 [facility] Comment on above: Performed By: #### C MP, CBC, LIPASE #### [address] Chloride [Moles/volume] in S alissa or PlasmaOrdered By: Jono Ferrari on 07-06-2024 Chloride [Moles/Vol] 97 mmol/L Low 98-107 [facility] Comment on above: Performed By: #### C MP, CBC, LIPASE #### [address] Complete Blood Count Auto Di ffon 07-06-2024 Mean Corpuscular HGB Conc 34.5 g/dL Normal 32.0-35.0 [facility] Comment on above: Performed By: #### C MP, CBC, LIPASE #### [address] Monocytes/100 WBC (Bld) 18.69 % Normal 0.00-20.00 [facility] Comment on above: Performed By: #### C MP, CBC, LIPASE #### [address] NRBC% 0.0 /100{WBC} Normal 0-0.5 [facility] Comment on above: Performed By: #### C MP, CBC, LIPASE #### [address] Comprehensive Metabolic Pane rosa 07-06-2024 Albumin [Mass/Vol] 4.2 g/dL Normal 3.5-5.7 [facility] Comment on above: Performed By: #### C MP, CBC, LIPASE #### [address] Creatinine Clr Calc Pharmacy 108.35 Normal [facility] Comment on above: Result Comment: PERF ORMED BY: [place] [address] PATHOLOGIST CONTENT ADMINISTRATOR RIDGE HUERTA M.D. Performed By: #### C MP, CBC, LIPASE #### [address] GFR/1.73 sq M.predicted MDRD (S/P/Bld) [Vol rate/Area] mL/min/{1.73_m2} Normal [facility] Comment on above: Performed By: #### C MP, CBC, LIPASE #### [facility] [address] [place] [id number] [place] Creatinine [Mass/volume] in Serum or PlasmaOrdered By: Jono Ferrari on 07-06-2024 Creatinine [Mass/Vol] 0.59 mg/dL Low 0.60-1.20 [facility] Comment on above: Performed By: #### C MP, CBC, LIPASE #### [facility] [address] [place] [address] [facility] ECG 12 lead ECGon 07-06-2024 ECG 12 lead ECG [facility] [address] [place] [address] Electrocardiograph Report Signed Patient: Rachel Mcgarry MR#: [id number] 1 : 1980 Acct:[id number] Age/Sex: 44 / F ADM Date: 07/06/24 [...] By Edna Munoz MD 07/06/241935 Normal [facility] Erythrocyte distribution wid th [Ratio] by Automated countOrdered By: Jono Ferrari on 07-06-2024 Erythrocyte distribution width (RBC) [Ratio] 13.2 % Normal 11.9-15.3 [facility] Comment on above: Performed By: #### C MP, CBC, LIPASE #### [facility] [address] Erythrocytes [#/volume] in B lood by Automated countOrdered By: Jono Ferrari on 07-06-2024 RBC (Bld) [#/Vol] 4.93 10*6/uL Normal 3.60-5.00 [facility] Comment on above: Performed By: #### C MP, CBC, LIPASE #### [facility] [address] Glucose [Mass/volume] in Ser um or PlasmaOrdered By: Jono Ferrari on 07-06-2024 Glucose [Mass/Vol] 142 mg/dL High 70-100 [facility] Comment on above: ADA recommended refe rence rangeRandom Glucose Reference Range is dependent on time and content of last meal. Glucose of more than 200 mg/dL in a nonstressed, ambulatory subject supports the diagnosis of Diabetes Mellitus. Result Comment: [place] om Glucose Reference Range is dependent on time and content of last meal. Glucose of more than 200 mg/dL in a nonstressed, ambulatory subject supports the diagnosis of Diabetes Mellitus. ADA recommended reference range Performed By: #### C MP, CBC, LIPASE #### [facility] [address] Hematocrit [Volume Fraction] of Blood by Automated countOrdered By: Jono Ferrari on 07-06-2024 Hematocrit (Bld) [Volume fraction] 43.5 % Normal 34.0-46.4 [facility] Comment on above: Performed By: #### C MP, CBC, LIPASE #### [facility] [address] [place] [address] [place] Hemoglobin [Mass/volume] in BloodOrdered By: Jono Ferrari on 07-06-2024 Hemoglobin (Bld) [Mass/Vol] 15.0 g/dL Normal 11.8-15.4 [facility] Comment on above: Performed By: #### C MP, CBC, LIPASE #### [facility] [address] [place] [address] [place] Leukocytes [#/volume] correc cherie for nucleated erythrocytes in Blood by Automated counOrdered By: Jono Ferrari on 07-06-2024 WBC corrected for nucl RBC Auto (Bld) [#/Vol] 22.9 10*3/uL High 3.8-11.6 [facility] Leukocytes [#/volume] in Blo od by Automated countOrdered By: Jono Ferrari on 07-06-2024 WBC (Bld) [#/Vol] 22.9 10*3/uL High 3.8-11.6 [facility] Comment on above: Performed By: #### C MP, CBC, LIPASE #### [facility] [address] [place] [address] Lipase [Enzymatic activity/v olume] in Serum or PlasmaOrdered By: Jono Ferrari on 07-06-2024 Lipase [Catalytic activity/Vol] 48.0 U/L Normal 11.0-82.0 [facility] Comment on above: Result Comment: PERF ORMED BY: [place] [address] PATHOLOGIST CONTENT ADMINISTRATOR RIDGE HUERTA M.D. Performed By: #### C MP, CBC, LIPASE #### [facility] [address] [place] [address] [place] Lymphocytes [#/volume] in Bl ood by Automated countOrdered By: Jono Ferrari on 07-06-2024 Lymphocytes (Bld) [#/Vol] 5.8 10*3/uL High 1.00-4.8 [facility] Comment on above: Performed By: #### C MP, CBC, LIPASE #### [facility] [address] [place] [address] [place] Lymphocytes/100 leukocytes i n Blood by Automated countOrdered By: Jono Ferrari on 07-06-2024 Lymphocytes/100 WBC (Bld) 25.3 % Normal . [facility] Comment on above: Performed By: #### C MP, CBC, LIPASE #### [facility] [address] [place] [address] [place] MCH [Entitic mass] by Automa cherie countOrdered By: Jono Ferrari on 07-06-2024 MCH (RBC) [Entitic mass] 30.5 pg Normal 24.7-34.3 [facility] Comment on above: Performed By: #### C MP, CBC, LIPASE #### [facility] [address] [place] [address] MCHC Auto (RBC) [Mass/Vol]Or dered By: Jono Ferrari on 07-06-2024 MCHC (RBC) [Mass/Vol] 34.5 g/dL 32.0-35.0 [facility] MCV [Entitic volume] by Auto mated countOrdered By: Jono Ferrari on 07-06-2024 MCV (RBC) [Entitic vol] 88.3 fL Normal 80-100 [facility] Comment on above: Performed By: #### C MP, CBC, LIPASE #### [facility] [address] [place] [address] Monocyte distribution width [Entitic volume] in Blood by AutomatedOrdered By: Jono Ferrari on 07-06-2024 Monocyte distribution width Auto (Bld) [Entitic vol] 18.69 % 0.00-20.00 [facility] Neutrophils [#/volume] in Bl ood by Automated countOrdered By: Jono Ferrari on 07-06-2024 Neutrophils (Bld) [#/Vol] 15.1 10*3/uL High 1.8-7.7 [facility] Comment on above: Performed By: #### C MP, CBC, LIPASE #### [facility] [address] [place] [address] No Panel InformationOrdered By: Jono Ferrari on 07-06-2024 Estimated GFR (CKD-EPI) > 60.0 mL/Min [facility] Creatinine Clearance (Chem 108.35 [facility] Nucleated erythrocytes [Pres ence] in Blood by Automated countOrdered By: Jono Ferrari on 07-06-2024 Nucleated RBC Auto Ql (Bld) 0.0 /100{WBC} 0-0.5 [facility] Platelet mean volume [Entiti c volume] in Blood by Automated countOrdered By: Jono Ferrari on 07-06-2024 Platelet mean volume (Bld) [Entitic vol] 7.2 fL Normal 6.3-10.7 [facility] Comment on above: Performed By: #### C MP, CBC, LIPASE #### [facility] [address] [place] [address] [place] Platelets [#/volume] in Bloo d by Automated countOrdered By: Jono Ferrari on 07-06-2024 Platelets (Bld) [#/Vol] 387 10*3/uL Normal 150-450 [facility] Comment on above: Performed By: #### C MP, CBC, LIPASE #### [facility] [address] Potassium [Moles/volume] in Serum or PlasmaOrdered By: Jono Ferrari on 07-06-2024 Potassium [Moles/Vol] 3.9 mmol/L Normal 3.5-5.1 [facility] Comment on above: Performed By: #### C MP, CBC, LIPASE #### [address] Protein [Mass/volume] in Ser um or PlasmaOrdered By: Jono Ferrari on 07-06-2024 Protein [Mass/Vol] 7.2 g/dL Normal 6.4-8.9 [facility] Comment on above: Performed By: #### C MP, CBC, LIPASE #### [address] Serum globulin measurement b y calculation (mass/volume)Ordered By: Jono Ferrari on 07-06-2024 Globulin (S) [Mass/Vol] 3.0 g/dL Normal [facility] Comment on above: Performed By: #### C MP, CBC, LIPASE #### [address] Serum or plasma albumin/glob ulin mass ratioOrdered By: Jono Ferrari on 07-06-2024 Albumin/Globulin [Mass ratio] 1.4 {ratio} Normal [facility] Comment on above: Performed By: #### C MP, CBC, LIPASE #### [address] Serum or plasma anion gap de terminationOrdered By: Jono Ferrari on 07-06-2024 Anion gap [Moles/Vol] 13.7 mmol/L Normal 6.0-15.0 [facility] Comment on above: Performed By: #### C MP, CBC, LIPASE #### [facility] [address] Sodium [Moles/volume] in Ser um or PlasmaOrdered By: Jono Ferrari on 07-06-2024 Sodium [Moles/Vol] 132 mmol/L Low 136-145 [facility] Comment on above: Performed By: #### C MP, CBC, LIPASE #### [facility] [address] [place] [address] Urea nitrogen [Mass/volume] in Serum or PlasmaOrdered By: Jono Ferrari on 07-06-2024 Urea nitrogen [Mass/Vol] 8 mg/dL Normal 7-25 [facility] Comment on above: Performed By: #### C MP, CBC, LIPASE #### [address] XR chest 2V*on 07-06-2024 XR chest 2V* [facility] [place] [address] [place] [address] XRay Report Signed Patient: Rachel Mcgarry MR#: [id number] 1 : 1980 Acct:[id number] Age/Sex: 44 / F ADM Date: 07/06/24 [...] Praveen Welch M.D.07/06/2024 8:10 PM Dictation Location: [place] [address] Transcribed By: ROSA MARIA 07/06/242009 Dictated By: Praveen Welch DO 07/06/242008 Signed By: 07/06/242009 Normal [facility] Alanine aminotransferase [En zymatic activity/volume] in Serum or PlasmaOrdered By: Ajit Pettit on 07-04-2024 ALT [Catalytic activity/Vol] 7 U/L Normal 7-52 [facility] Comment on above: Performed By: #### C BC, CMP, LIPID #### [place] [address] [place] Albumin [Mass/volume] in Ser um or Plasma by Bromocresol green (BCG) dye binding methoOrdered By: Ajit Pettit on 07-04-2024 Albumin BCG dye [Mass/Vol] 3.8 g/dL 3.5-5.7 [facility] Alkaline phosphatase [Enzyma tic activity/volume] in Serum or PlasmaOrdered By: Ajit Pettit on 07-04-2024 ALP [Catalytic activity/Vol] 54 U/L Normal 34-104 [facility] Comment on above: Performed By: #### C BC, CMP, LIPID #### [facility] [address] [place] [address] [place] Aspartate aminotransferase [ Enzymatic activity/volume] in Serum or PlasmaOrdered By: Ajit Pettit on 07-04-2024 AST [Catalytic activity/Vol] 8 U/L Low 13-39 [facility] Comment on above: Performed By: #### C BC, CMP, LIPID #### [facility] [address] [place] [address] [place] Automated basophil %Ordered By: Ajit Pettit on 07-04-2024 Basophils/100 WBC (Bld) 0.6 % Normal . [facility] Comment on above: Performed By: #### C BC, CMP, LIPID #### [facility] [address] [place] [address] [place] Automated basophil countOrde red By: Ajit Pettit on 07-04-2024 Basophils (Bld) [#/Vol] 0.1 10*3/uL Normal 0.0-0.2 [facility] Comment on above: Result Comment: PERF ORMED BY: [place] [address] PATHOLOGIST CONTENT ADMINISTRATOR RIDGE HUERTA M.D. Performed By: #### C BC, CMP, LIPID #### [address] Automated blood monocyte cou ntOrdered By: Ajit Spasic on 07-04-2024 Monocytes (Bld) [#/Vol] 1.5 10*3/uL High 0.0-0.8 [facility] Comment on above: Performed By: #### C BC, CMP, LIPID #### [address] Automated eosinophil %Ordere d By: Ajit Spasic on 07-04-2024 Eosinophils/100 WBC (Bld) 0.5 % Normal . [facility] Comment on above: Performed By: #### C BC, CMP, LIPID #### [address] Automated eosinophil countOr dered By: Ajit Spasic on 07-04-2024 Eosinophils (Bld) [#/Vol] 0.1 10*3/uL Normal 0.0-0.45 [facility] Comment on above: Performed By: #### C BC, CMP, LIPID #### [address] Automated monocyte %Ordered By: Ajit Spasic on 07-04-2024 Monocytes/100 WBC (Bld) 7.9 % Normal . [facility] Comment on above: Performed By: #### C BC, CMP, LIPID #### [address] Automated neutrophil %Ordere d By: Ajit Spasic on 07-04-2024 Neutrophils/100 WBC (Bld) 66.4 % Normal . [facility] Comment on above: Performed By: #### C BC, CMP, LIPID #### [address] [place] [address] [place] Bilirubin.total [Mass/volume ] in Serum or PlasmaOrdered By: Ajit Spasic on 07-04-2024 Bilirubin [Mass/Vol] 0.3 mg/dL Normal 0.3-1.0 [facility] Comment on above: Performed By: #### C BC, CMP, LIPID #### [facility] [address] [place] [address] [place] Calcium [Mass/volume] in Ser um or PlasmaOrdered By: Ajit Spasic on 07-04-2024 Calcium [Mass/Vol] 8.9 mg/dL Normal 8.6-10.3 [facility] Comment on above: Performed By: #### C BC, CMP, LIPID #### [address] Carbon dioxide, total [Moles /volume] in Serum or PlasmaOrdered By: Ajit Spasic on 07-04-2024 CO2 [Moles/Vol] 29.2 mmol/L Normal 21.0-31.0 [facility] Comment on above: Performed By: #### C BC, CMP, LIPID #### [facility] [address] [place] [address] [place] Chloride [Moles/volume] in S alissa or PlasmaOrdered By: Ajit Spasic on 07-04-2024 Chloride [Moles/Vol] 92 mmol/L Low 98-107 [facility] Comment on above: Performed By: #### C BC, CMP, LIPID #### [facility] [address] [place] [address] Cholesterol [Mass/volume] in Serum or PlasmaOrdered By: Ajit Spasic on 07-04-2024 Cholesterol [Mass/Vol] 185 mg/dL Normal 140-200 [facility] Comment on above: Chol less than 200 m g/dl low riskChol 201-239 mg/dl borderline riskChol 240 mg/dl and greater high risk Result Comment: Chol less than 200 mg/dl low risk Chol 201-239 mg/dl borderline risk Chol 240 mg/dl and greater high risk Performed By: #### C BC, CMP, LIPID #### [facility] [address] Cholesterol in LDL Calc [Mas s/Vol]Ordered By: Ajit Pettit on 07-04-2024 Cholesterol in LDL [Mass/Vol] 58 mg/dL 0-100 [facility] Comment on above: LDL ATP III CLASSIFI CATIONLDL less than 100 mg/dL OptimalLDL 100-129 mg/dL Near or above optimalLDL 130-159 mg/dL Borderline highLDL 160-189 mg/dL HighLDL greater than 189 mg/dL Very high Cholesterol in VLDL Calc [Ma ss/Vol]Ordered By: Ajit Pettit on 07-04-2024 Cholesterol in VLDL [Mass/Vol] 78 mg/dL [facility] Complete Blood Count Auto Di ffon 07-04-2024 Mean Corpuscular HGB Conc 34.2 g/dL Normal 32.0-35.0 [facility] Comment on above: Performed By: #### C BC, CMP, LIPID #### [address] NRBC% 0.1 /100{WBC} Normal 0-0.5 [facility] Comment on above: Performed By: #### C BC, CMP, LIPID #### [address] Comprehensive Metabolic Pane rosa 07-04-2024 Albumin [Mass/Vol] 3.8 g/dL Normal 3.5-5.7 [facility] Comment on above: Performed By: #### C BC, CMP, LIPID #### [address] GFR/1.73 sq M.predicted MDRD (S/P/Bld) [Vol rate/Area] mL/min/{1.73_m2} Normal [facility] Comment on above: Performed By: #### C BC, CMP, LIPID #### [address] Creatinine [Mass/volume] in Serum or PlasmaOrdered By: Ajit Pettit on 07-04-2024 Creatinine [Mass/Vol] 0.61 mg/dL Normal 0.60-1.20 [facility] Comment on above: Performed By: #### C BC, CMP, LIPID #### [facility] [address] Erythrocyte distribution wid th [Ratio] by Automated countOrdered By: Ajit Pettit on 07-04-2024 Erythrocyte distribution width (RBC) [Ratio] 13.0 % Normal 11.9-15.3 [facility] Comment on above: Performed By: #### C BC, CMP, LIPID #### [facility] [address] Erythrocytes [#/volume] in B lood by Automated countOrdered By: Ajit Pettit on 07-04-2024 RBC (Bld) [#/Vol] 4.55 10*6/uL Normal 3.60-5.00 [facility] Comment on above: Performed By: #### C BC, CMP, LIPID #### [facility] [address] [place] [address] [place] Glucose [Mass/volume] in Ser um or PlasmaOrdered By: Ajit Pettit on 07-04-2024 Glucose [Mass/Vol] 164 mg/dL High 70-100 [facility] Comment on above: ADA recommended refe rence rangeRandom Glucose Reference Range is dependent on time and content of last meal. Glucose of more than 200 mg/dL in a nonstressed, ambulatory subject supports the diagnosis of Diabetes Mellitus. Result Comment: [place] om Glucose Reference Range is dependent on time and content of last meal. Glucose of more than 200 mg/dL in a nonstressed, ambulatory subject supports the diagnosis of Diabetes Mellitus. ADA recommended reference range Performed By: #### C BC, CMP, LIPID #### [facility] [address] Hematocrit [Volume Fraction] of Blood by Automated countOrdered By: Ajit Pettit on 07-04-2024 Hematocrit (Bld) [Volume fraction] 40.0 % Normal 34.0-46.4 [facility] Comment on above: Performed By: #### C BC, CMP, LIPID #### [facility] [address] [place] [address] [place] Hemoglobin [Mass/volume] in BloodOrdered By: Ajit Pettit on 07-04-2024 Hemoglobin (Bld) [Mass/Vol] 13.7 g/dL Normal 11.8-15.4 [facility] Comment on above: Performed By: #### C BC, CMP, LIPID #### [facility] [address] Leukocytes [#/volume] correc cherie for nucleated erythrocytes in Blood by Automated counOrdered By: Ajit Pettit on 07-04-2024 WBC corrected for nucl RBC Auto (Bld) [#/Vol] 19.3 10*3/uL High 3.8-11.6 [facility] Leukocytes [#/volume] in Blo od by Automated countOrdered By: Ajit Pettit on 07-04-2024 WBC (Bld) [#/Vol] 19.3 10*3/uL High 3.8-11.6 [facility] Comment on above: Performed By: #### C BC, CMP, LIPID #### [address] Lipid Panelon 07-04-2024 LDL Cholesterol,Calculated 58 mg/dL Normal 0-100 [facility] Comment on above: Result Comment: LDL ATP III CLASSIFICATION LDL less than 100 mg/dL Optimal LDL 100-129 mg/dL Near or above optimal LDL 130-159 mg/dL Borderline high LDL 160-189 mg/dL High LDL greater than 189 mg/dL Very high Performed By: #### C BC, CMP, LIPID #### [address] Triglyceride w/Reflex 393 mg/dL High 0-149 [facility] Comment on above: Result Comment: TRIG ATP III CLASSIFICATION TRIG less than 150 mg/dL Normal TRIG 150-199 mg/dL Borderline high TRIG 200-500 mg/dL High TRIG greater than 500 mg/dL Very high Standard traceable to the Center for Disease Conrtrol and Prevention (CDC) test method. Performed By: #### C BC, CMP, LIPID #### [facility] [address] VLDL CHOLESTEROL 78 mg/dL Normal [facility] Comment on above: Performed By: #### C BC, CMP, LIPID #### [facility] [address] [place] [address] Lymphocytes [#/volume] in Bl ood by Automated countOrdered By: Ajit Pettit on 07-04-2024 Lymphocytes (Bld) [#/Vol] 4.7 10*3/uL Normal 1.00-4.8 [facility] Comment on above: Performed By: #### C BC, CMP, LIPID #### [address] Lymphocytes/100 leukocytes i n Blood by Automated countOrdered By: Ajit Pettit on 07-04-2024 Lymphocytes/100 WBC (Bld) 24.6 % Normal . [facility] Comment on above: Performed By: #### C BC, CMP, LIPID #### [address] MCH [Entitic mass] by Automa cherie countOrdered By: Ajit Pettit on 07-04-2024 MCH (RBC) [Entitic mass] 30.0 pg Normal 24.7-34.3 [facility] Comment on above: Performed By: #### C BC, CMP, LIPID #### [address] MCHC Auto (RBC) [Mass/Vol]Or dered By: Ajit Pettit on 07-04-2024 MCHC (RBC) [Mass/Vol] 34.2 g/dL 32.0-35.0 [facility] MCV [Entitic volume] by Auto mated countOrdered By: Ajit Pettit on 07-04-2024 MCV (RBC) [Entitic vol] 87.9 fL Normal 80-100 [facility] Comment on above: Performed By: #### C BC, CMP, LIPID #### [address] Neutrophils [#/volume] in Bl ood by Automated countOrdered By: Ajit Pettit on 07-04-2024 Neutrophils (Bld) [#/Vol] 12.8 10*3/uL High 1.8-7.7 [facility] Comment on above: Performed By: #### C BC, CMP, LIPID #### [facility] [address] [place] [address] No Panel InformationOrdered By: Ajit Pettit on 07-04-2024 Estimated GFR (CKD-EPI) > 60.0 mL/Min [facility] Creatinine Clearance (Chem N/A [facility] Nucleated erythrocytes [Pres ence] in Blood by Automated countOrdered By: Ajit Pettit on 07-04-2024 Nucleated RBC Auto Ql (Bld) 0.1 /100{WBC} 0-0.5 [facility] Platelet mean volume [Entiti c volume] in Blood by Automated countOrdered By: Ajit Pettit on 07-04-2024 Platelet mean volume (Bld) [Entitic vol] 7.0 fL Normal 6.3-10.7 [facility] Comment on above: Performed By: #### C BC, CMP, LIPID #### [facility] [address] [place] [address] [place] Platelets [#/volume] in Bloo d by Automated countOrdered By: Ajit Pettit on 07-04-2024 Platelets (Bld) [#/Vol] 350 10*3/uL Normal 150-450 [facility] Comment on above: Performed By: #### C BC, CMP, LIPID #### [facility] [address] [place] [address] [place] Potassium [Moles/volume] in Serum or PlasmaOrdered By: Ajit Pettit on 07-04-2024 Potassium [Moles/Vol] 4.6 mmol/L Normal 3.5-5.1 [facility] Comment on above: Performed By: #### C BC, CMP, LIPID #### [place] [address] [place] Protein [Mass/volume] in Ser um or PlasmaOrdered By: Ajit Pettit on 07-04-2024 Protein [Mass/Vol] 5.9 g/dL Low 6.4-8.9 [facility] Comment on above: Performed By: #### C BC, CMP, LIPID #### [facility] [address] [place] [address] Serum globulin measurement b y calculation (mass/volume)Ordered By: Ajit Pettit on 07-04-2024 Globulin (S) [Mass/Vol] 2.1 g/dL Normal [facility] Comment on above: Performed By: #### C BC, CMP, LIPID #### [facility] [address] [place] [address] Serum or plasma albumin/glob ulin mass ratioOrdered By: Ajit Pettit on 07-04-2024 Albumin/Globulin [Mass ratio] 1.8 {ratio} Normal [facility] Comment on above: Performed By: #### C BC, CMP, LIPID #### [address] Serum or plasma anion gap de terminationOrdered By: Ajit Pettit on 07-04-2024 Anion gap [Moles/Vol] 13.4 mmol/L Normal 6.0-15.0 [facility] Comment on above: Performed By: #### C BC, CMP, LIPID #### [facility] [address] [place] [address] Serum or plasma high density lipoprotein (HDL) cholesterol measurementOrdered By: Ajit Pettit on 07-04-2024 Cholesterol in HDL [Mass/Vol] 48 mg/dL Normal 23-92 [facility] Comment on above: HDL CHOL ATP-III CLA SSIFICATION Cardiovascular RiskHDL > or equal to 60 mg/dL LOWHDL < 40 mg/dL HIGH Result Comment: HDL CHOL ATP-III CLASSIFICATION Cardiovascular Risk HDL > or equal to 60 mg/dL LOW HDL < 40 mg/dL HIGH Performed By: #### C BC, CMP, LIPID #### [facility] [address] [place] [address] Serum or plasma total choles terol/high density lipoprotein (HDL) cholesterol mass ratOrdered By: Ajit Pettit on 07-04-2024 Cholesterol.total/Suellen sterol in HDL [Mass ratio] 3.9 {ratio} Normal <5.0 [facility] Comment on above: Result Comment: PERF ORMED BY: [place] [address] PATHOLOGIST CONTENT ADMINISTRATOR RIDGE HUERTA M.D. Performed By: #### C BC, CMP, LIPID #### [facility] [address] Sodium [Moles/volume] in Ser um or PlasmaOrdered By: Ajit Pettit on 07-04-2024 Sodium [Moles/Vol] 130 mmol/L Low 136-145 [facility] Comment on above: Performed By: #### C BC, CMP, LIPID #### [address] Triglyceride [Mass/volume] i n Serum or PlasmaOrdered By: Ajit Pettit on 07-04-2024 Triglyceride [Mass/Vol] 393 mg/dL High 0-149 [facility] Comment on above: TRIG ATP III CLASSIF ICATIONTRIG less than 150 mg/dL NormalTRIG 150-199 mg/dL Borderline highTRIG 200-500 mg/dL High TRIG greater than 500 mg/dL Very highStandard traceable to the Center for Disease Conrtrol and Prevention (CDC) test method. Urea nitrogen [Mass/volume] in Serum or PlasmaOrdered By: jAit Pettit on 07-04-2024 Urea nitrogen [Mass/Vol] 6 mg/dL Low 7-25 [facility] Comment on above: Performed By: #### C BC, CMP, LIPID #### [address] MR lumbar spine wo conon MR lumbar spine wo con [facility] [place] [address] [place] [address] MRI Report Signed Patient: Rachel Mcgarry MR#: [id number] 1 : 1980 Acct:[id number] Age/Sex: 44 / F ADM Date: 06/08/24 Loc: [facility] Room: Type: [facility] Attending Dr: Ajit DEJESUS Copies to: [...] Dar Messina M.D.06/08/2024 4:52 PM Dictation Location: [place] [address] Transcribed By: [facility] 06/08/24 1652 Dictated By: Dar Messina II, MD 06/08/24 1643 Signed By: 06/08/24 1652 Normal [facility] A1C with Estimated Average G lethan 05-16-2024 Glucose [Mass/Vol] 137 mg/dL Normal [facility] Comment on above: Order Comment: Reaso n for Exam Type 2 diabetes mellitus without complication, without long- Result Comment: PERF ORMED BY: [place] [address] PATHOLOGIST CONTENT ADMINISTRATOR RIDGE HUERTA M.D. Performed By: #### C BC, CMP, LIPID #### [facility] [address] [place] [address] [place] Alanine aminotransferase [En zymatic activity/volume] in Serum or PlasmaOrdered By: Ajit Pettit on 05-16-2024 ALT [Catalytic activity/Vol] 11 U/L Normal 7-52 [facility] Comment on above: Order Comment: Reaso n for Exam Type 2 diabetes mellitus without complication, without long- Reason for Exam Vitamin D deficiency Performed By: #### C BC, CMP, LIPID #### [facility] [address] [place] [address] [place] Albumin [Mass/volume] in Ser um or Plasma by Bromocresol green (BCG) dye binding methoOrdered By: Ajit Pettit on 05-16-2024 Albumin BCG dye [Mass/Vol] 4.2 g/dL 3.5-5.7 [facility] Alkaline phosphatase [Enzyma tic activity/volume] in Serum or PlasmaOrdered By: Ajit Pettit on 05-16-2024 ALP [Catalytic activity/Vol] 62 U/L Normal 34-104 [facility] Comment on above: Order Comment: Reaso n for Exam Type 2 diabetes mellitus without complication, without long- Reason for Exam Vitamin D deficiency Performed By: #### C BC, CMP, LIPID #### [facility] [address] Aspartate aminotransferase [ Enzymatic activity/volume] in Serum or PlasmaOrdered By: Ajit Pettit on 05-16-2024 AST [Catalytic activity/Vol] 11 U/L Low 13-39 [facility] Comment on above: Order Comment: Reaso n for Exam Type 2 diabetes mellitus without complication, without long- Reason for Exam Vitamin D deficiency Performed By: #### C BC, CMP, LIPID #### [facility] [address] Automated basophil %Ordered By: Ajit Pettit on 05-16-2024 Basophils/100 WBC (Bld) 0.6 % Normal . [facility] Comment on above: Order Comment: Reaso n for Exam Type 2 diabetes mellitus without complication, without long- Performed By: #### C BC, CMP, LIPID #### [address] Automated basophil countOrde red By: Ajit Pettit on 05-16-2024 Basophils (Bld) [#/Vol] 0.1 10*3/uL Normal 0.0-0.2 [facility] Comment on above: Order Comment: Reaso n for Exam Type 2 diabetes mellitus without complication, without long- Result Comment: PERF ORMED BY: [place] [address] PATHOLOGIST CONTENT ADMINISTRATOR RIDGE HUERTA M.D. Performed By: #### C BC, CMP, LIPID #### [address] Automated blood monocyte cou ntOrdered By: Ajit Pettit on 05-16-2024 Monocytes (Bld) [#/Vol] 0.7 10*3/uL Normal 0.0-0.8 [facility] Comment on above: Order Comment: Reaso n for Exam Type 2 diabetes mellitus without complication, without long- Performed By: #### C BC, CMP, LIPID #### [address] Automated eosinophil %Ordere d By: Ajit Pettit on 05-16-2024 Eosinophils/100 WBC (Bld) 0.4 % Normal . [facility] Comment on above: Order Comment: Reaso n for Exam Type 2 diabetes mellitus without complication, without long- Performed By: #### C BC, CMP, LIPID #### [facility] [address] Automated eosinophil countOr dered By: Ajit Pettit on 05-16-2024 Eosinophils (Bld) [#/Vol] 0.1 10*3/uL Normal 0.0-0.45 [facility] Comment on above: Order Comment: Reaso n for Exam Type 2 diabetes mellitus without complication, without long- Performed By: #### C BC, CMP, LIPID #### [facility] [address] Automated monocyte %Ordered By: Ajit Millanc on 05-16-2024 Monocytes/100 WBC (Bld) 4.4 % Normal . [facility] Comment on above: Order Comment: Reaso n for Exam Type 2 diabetes mellitus without complication, without long- Performed By: #### C BC, CMP, LIPID #### [facility] [address] Automated neutrophil %Ordere d By: Ajit Pettit on 05-16-2024 Neutrophils/100 WBC (Bld) 61.6 % Normal . [facility] Comment on above: Order Comment: Reaso n for Exam Type 2 diabetes mellitus without complication, without long- Performed By: #### C BC, CMP, LIPID #### [facility] [address] [place] [address] [place] Bilirubin.total [Mass/volume ] in Serum or PlasmaOrdered By: Ajit Pettit on 05-16-2024 Bilirubin [Mass/Vol] 0.3 mg/dL Normal 0.3-1.0 [facility] Comment on above: Order Comment: Reaso n for Exam Type 2 diabetes mellitus without complication, without long- Reason for Exam Vitamin D deficiency Performed By: #### C BC, CMP, LIPID #### [facility] [address] [place] [address] [place] Calcium [Mass/volume] in Ser um or PlasmaOrdered By: Ajit Pettit on 05-16-2024 Calcium [Mass/Vol] 9.0 mg/dL Normal 8.6-10.3 [facility] Comment on above: Order Comment: Reaso n for Exam Type 2 diabetes mellitus without complication, without long- Reason for Exam Vitamin D deficiency Performed By: #### C BC, CMP, LIPID #### [facility] [address] [place] [address] [place] Carbon dioxide, total [Moles /volume] in Serum or PlasmaOrdered By: Ajit Pettit on 05-16-2024 CO2 [Moles/Vol] 26.0 mmol/L Normal 21.0-31.0 [facility] Comment on above: Order Comment: Reaso n for Exam Type 2 diabetes mellitus without complication, without long- Reason for Exam Vitamin D deficiency Performed By: #### C BC, CMP, LIPID #### [facility] [address] [place] [address] [place] Chloride [Moles/volume] in S alissa or PlasmaOrdered By: Ajit Pettit on 05-16-2024 Chloride [Moles/Vol] 96 mmol/L Low 98-107 [facility] Comment on above: Order Comment: Reaso n for Exam Type 2 diabetes mellitus without complication, without long- Reason for Exam Vitamin D deficiency Performed By: #### C BC, CMP, LIPID #### [facility] [address] [place] [address] [place] Cholesterol [Mass/volume] in Serum or PlasmaOrdered By: Ajit Pettit on 05-16-2024 Cholesterol [Mass/Vol] 237 mg/dL High 140-200 [facility] Comment on above: Chol less than [...] By: #### C BC, CMP, LIPID #### [facility] [address] [address] Cholesterol in LDL Calc [Mas s/Vol]Ordered By: Ajit Pettit on 05-16-2024 Cholesterol in LDL [Mass/Vol] 130 mg/dL High 0-100 [facility] Comment on above: LDL ATP III CLASSIFI CATIONLDL less than 100 mg/dL OptimalLDL 100-129 mg/dL Near or above optimalLDL 130-159 mg/dL Borderline highLDL 160-189 mg/dL HighLDL greater than 189 mg/dL Very high Cholesterol in VLDL Calc [Ma ss/Vol]Ordered By: Ajit Pettit on 05-16-2024 Cholesterol in VLDL [Mass/Vol] 64 mg/dL [facility] Complete Blood Count Auto Di ffon 05-16-2024 Mean Corpuscular HGB Conc 34.3 g/dL Normal 32.0-35.0 [facility] Comment on above: Order Comment: Reaso n for Exam Type 2 diabetes mellitus without complication, without long- Performed By: #### C BC, CMP, LIPID #### [facility] [address] [place] [address] NRBC% 0.1 /100{WBC} Normal 0-0.5 [facility] Comment on above: Order Comment: Reaso n for Exam Type 2 diabetes mellitus without complication, without long- Performed By: #### C BC, CMP, LIPID #### [facility] [address] Comprehensive Metabolic Pane rosa 05-16-2024 Albumin [Mass/Vol] 4.2 g/dL Normal 3.5-5.7 [facility] Comment on above: Order Comment: Reaso n for Exam Type 2 diabetes mellitus without complication, without long- Reason for Exam Vitamin D deficiency Performed By: #### C BC, CMP, LIPID #### [facility] [address] [place] [address] GFR/1.73 sq M.predicted MDRD (S/P/Bld) [Vol rate/Area] mL/min/{1.73_m2} Normal [facility] Comment on above: Order Comment: Reaso n for Exam Type 2 diabetes mellitus without complication, without long- Reason for Exam Vitamin D deficiency Performed By: #### C BC, CMP, LIPID #### [facility] [address] Creatinine [Mass/volume] in Serum or PlasmaOrdered By: Ajit Pettit on 05-16-2024 Creatinine [Mass/Vol] 0.47 mg/dL Low 0.60-1.20 [facility] Comment on above: Order Comment: Reaso n for Exam Type 2 diabetes mellitus without complication, without long- Reason for Exam Vitamin D deficiency Performed By: #### C BC, CMP, LIPID #### [facility] [address] Erythrocyte distribution wid th [Ratio] by Automated countOrdered By: Ajit Pettit on 05-16-2024 Erythrocyte distribution width (RBC) [Ratio] 13.3 % Normal 11.9-15.3 [facility] Comment on above: Order Comment: Reaso n for Exam Type 2 diabetes mellitus without complication, without long- Performed By: #### C BC, CMP, LIPID #### [facility] [address] Erythrocytes [#/volume] in B lood by Automated countOrdered By: Ajit Pettit on 05-16-2024 RBC (Bld) [#/Vol] 4.64 10*6/uL Normal 3.60-5.00 [facility] Comment on above: Order Comment: Reaso n for Exam Type 2 diabetes mellitus without complication, without long- Performed By: #### C BC, CMP, LIPID #### [facility] [address] [place] [address] [place] Glucose [Mass/volume] in Ser um or PlasmaOrdered By: Ajit Pettit on 05-16-2024 Glucose [Mass/Vol] 74 mg/dL Normal 70-100 [facility] Comment on above: ADA recommended refe rence rangeRandom Glucose Reference Range is dependent on time and content of last meal. Glucose of more than 200 mg/dL in a nonstressed, ambulatory subject supports the diagnosis of Diabetes Mellitus. Order Comment: Reaso n for Exam Type 2 diabetes mellitus without complication, without long- Reason for Exam Vitamin D deficiency Result Comment: [place] om Glucose Reference Range is dependent on time and content of last meal. Glucose of more than 200 mg/dL in a nonstressed, ambulatory subject supports the diagnosis of Diabetes Mellitus. ADA recommended reference range Performed By: #### C BC, CMP, LIPID #### [facility] [address] Glucose mean value [Mass/vol ume] in Blood Estimated from glycated hemoglobinOrdered By: Ajit Pettit on 05-16-2024 Average glucose Estimated from glycated hemoglobin (Bld) [Mass/Vol] 137 mg/dL [facility] Hematocrit [Volume Fraction] of Blood by Automated countOrdered By: Ajit Pettit on 05-16-2024 Hematocrit (Bld) [Volume fraction] 41.1 % Normal 34.0-46.4 [facility] Comment on above: Order Comment: Reaso n for Exam Type 2 diabetes mellitus without complication, without long- Performed By: #### C BC, CMP, LIPID #### [facility] [address] Hemoglobin A1c percentageOrd ered By: Ajit Pettit on 05-16-2024 HbA1c (Bld) [Mass fraction] 6.4 % High 4.3-5.6 [facility] Comment on above: Increased risk for d iabetes: 5.7 - 6.4diabetes: >6.4glycemic control for adults with diabetes: <7.0 Order Comment: Reaso n for Exam Type 2 diabetes mellitus without complication, without long- Result Comment: Incr eased risk for diabetes: 5.7 - 6.4 diabetes: >6.4 glycemic control for adults with diabetes: <7.0 Performed By: #### C BC, CMP, LIPID #### [facility] [address] Hemoglobin [Mass/volume] in BloodOrdered By: Ajit Pettit on 05-16-2024 Hemoglobin (Bld) [Mass/Vol] 14.1 g/dL Normal 11.8-15.4 [facility] Comment on above: Order Comment: Reaso n for Exam Type 2 diabetes mellitus without complication, without long- Performed By: #### C BC, CMP, LIPID #### [facility] [address] Leukocytes [#/volume] correc cherie for nucleated erythrocytes in Blood by Automated counOrdered By: Ajit Pettit on 05-16-2024 WBC corrected for nucl RBC Auto (Bld) [#/Vol] 15.0 10*3/uL High 3.8-11.6 [facility] Leukocytes [#/volume] in Blo od by Automated countOrdered By: Ajit Pettit on 05-16-2024 WBC (Bld) [#/Vol] 15.0 10*3/uL High 3.8-11.6 [facility] Comment on above: Order Comment: Reaso n for Exam Type 2 diabetes mellitus without complication, without long- Performed By: #### C BC, CMP, LIPID #### [address] Lipid Panelon 05-16-2024 LDL Cholesterol,Calculated 130 mg/dL High 0-100 [facility] Comment on above: Order Comment: [...] By: #### C BC, CMP, LIPID #### [address] Triglyceride w/Reflex 321 mg/dL High 0-149 [facility] Comment on above: Order Comment: [...] By: #### C BC, CMP, LIPID #### [place] [id number] [facility] VLDL CHOLESTEROL 64 mg/dL Normal [facility] Comment on above: Order Comment: Reaso n for Exam Type 2 diabetes mellitus without complication, without long- Reason for Exam Vitamin D deficiency Performed By: #### C BC, CMP, LIPID #### [facility] [address] [place] [address] Lymphocytes [#/volume] in Bl ood by Automated countOrdered By: Ajit Pettit on 05-16-2024 Lymphocytes (Bld) [#/Vol] 5.0 10*3/uL High 1.00-4.8 [facility] Comment on above: Order Comment: Reaso n for Exam Type 2 diabetes mellitus without complication, without long- Performed By: #### C BC, CMP, LIPID #### [facility] [address] [place] [address] Lymphocytes/100 leukocytes i n Blood by Automated countOrdered By: Ajit Pettit on 05-16-2024 Lymphocytes/100 WBC (Bld) 33.0 % Normal . [facility] Comment on above: Order Comment: Reaso n for Exam Type 2 diabetes mellitus without complication, without long- Performed By: #### C BC, CMP, LIPID #### [facility] [address] [place] [address] MCH [Entitic mass] by Automa cherie countOrdered By: Ajit Pettit on 05-16-2024 MCH (RBC) [Entitic mass] 30.3 pg Normal 24.7-34.3 [facility] Comment on above: Order Comment: Reaso n for Exam Type 2 diabetes mellitus without complication, without long- Performed By: #### C BC, CMP, LIPID #### [facility] [address] [place] [address] MCHC Auto (RBC) [Mass/Vol]Or dered By: Ajit Pettit on 05-16-2024 MCHC (RBC) [Mass/Vol] 34.3 g/dL 32.0-35.0 [facility] MCV [Entitic volume] by Auto mated countOrdered By: Ajit Pettit on 05-16-2024 MCV (RBC) [Entitic vol] 88.4 fL Normal 80-100 [facility] Comment on above: Order Comment: Reaso n for Exam Type 2 diabetes mellitus without complication, without long- Performed By: #### C BC, CMP, LIPID #### [facility] [address] [place] [address] [place] Neutrophils [#/volume] in Bl ood by Automated countOrdered By: Ajit Pettit on 05-16-2024 Neutrophils (Bld) [#/Vol] 9.3 10*3/uL High 1.8-7.7 [facility] Comment on above: Order Comment: Reaso n for Exam Type 2 diabetes mellitus without complication, without long- Performed By: #### C BC, CMP, LIPID #### [facility] [address] No Panel InformationOrdered By: Ajit Pettit on 05-16-2024 Estimated GFR (CKD-EPI) > 60.0 mL/Min [facility] Creatinine Clearance (Chem N/A [facility] Nucleated erythrocytes [Pres ence] in Blood by Automated countOrdered By: Ajit Pettit on 05-16-2024 Nucleated RBC Auto Ql (Bld) 0.1 /100{WBC} 0-0.5 [facility] Platelet mean volume [Entiti c volume] in Blood by Automated countOrdered By: Ajit Pettit on 05-16-2024 Platelet mean volume (Bld) [Entitic vol] 7.9 fL Normal 6.3-10.7 [facility] Comment on above: Order Comment: Reaso n for Exam Type 2 diabetes mellitus without complication, without long- Performed By: #### C BC, CMP, LIPID #### [facility] [address] [place] [address] [place] Platelets [#/volume] in Bloo d by Automated countOrdered By: Ajit Pettit on 05-16-2024 Platelets (Bld) [#/Vol] 400 10*3/uL Normal 150-450 [facility] Comment on above: Order Comment: Reaso n for Exam Type 2 diabetes mellitus without complication, without long- Performed By: #### C BC, CMP, LIPID #### [facility] [address] [place] [address] [place] Potassium [Moles/volume] in Serum or PlasmaOrdered By: Ajit Pettit on 05-16-2024 Potassium [Moles/Vol] 4.1 mmol/L Normal 3.5-5.1 [facility] Comment on above: Order Comment: Reaso n for Exam Type 2 diabetes mellitus without complication, without long- Reason for Exam Vitamin D deficiency Performed By: #### C BC, CMP, LIPID #### [facility] [address] [place] [id number] [facility] Protein [Mass/volume] in Ser um or PlasmaOrdered By: Ajit Pettit on 05-16-2024 Protein [Mass/Vol] 6.7 g/dL Normal 6.4-8.9 [facility] Comment on above: Order Comment: Reaso n for Exam Type 2 diabetes mellitus without complication, without long- Reason for Exam Vitamin D deficiency Performed By: #### C BC, CMP, LIPID #### [facility] [address] [place] [address] [facility] Serum globulin measurement b y calculation (mass/volume)Ordered By: Ajit Pettit on 05-16-2024 Globulin (S) [Mass/Vol] 2.5 g/dL Normal [facility] Comment on above: Order Comment: Reaso n for Exam Type 2 diabetes mellitus without complication, without long- Reason for Exam Vitamin D deficiency Performed By: #### C BC, CMP, LIPID #### [facility] [address] [place] [address] [facility] Serum or plasma albumin/glob ulin mass ratioOrdered By: Ajit Pettit on 05-16-2024 Albumin/Globulin [Mass ratio] 1.7 {ratio} Normal [facility] Comment on above: Order Comment: Reaso n for Exam Type 2 diabetes mellitus without complication, without long- Reason for Exam Vitamin D deficiency Performed By: #### C BC, CMP, LIPID #### [facility] [address] [place] [id number] [place] Serum or plasma anion gap de terminationOrdered By: Ajit Pettit on 05-16-2024 Anion gap [Moles/Vol] 13.1 mmol/L Normal 6.0-15.0 [facility] Comment on above: Order Comment: Reaso n for Exam Type 2 diabetes mellitus without complication, without long- Reason for Exam Vitamin D deficiency Performed By: #### C BC, CMP, LIPID #### [facility] [address] Serum or plasma high density lipoprotein (HDL) cholesterol measurementOrdered By: Ajit Pettit on 05-16-2024 Cholesterol in HDL [Mass/Vol] 43 mg/dL Normal 23-92 [facility] Comment on above: HDL CHOL ATP-III [...] By: #### C BC, CMP, LIPID #### [facility] [address] [place] [address] Serum or plasma total choles terol/high density lipoprotein (HDL) cholesterol mass ratOrdered By: Ajit Pettit on 05-16-2024 Cholesterol.total/Suellen sterol in HDL [Mass ratio] 5.5 {ratio} Normal <5.0 [facility] Comment on above: Order Comment: Reaso n for Exam Type 2 diabetes mellitus without complication, without long- Reason for Exam Vitamin D deficiency Performed By: #### C BC, CMP, LIPID #### [facility] [address] [place] [address] Sodium [Moles/volume] in Ser um or PlasmaOrdered By: Ajit Pettit on 05-16-2024 Sodium [Moles/Vol] 131 mmol/L Low 136-145 [facility] Comment on above: Order Comment: Reaso n for Exam Type 2 diabetes mellitus without complication, without long- Reason for Exam Vitamin D deficiency Performed By: #### C BC, CMP, LIPID #### [facility] [address] [place], [place] [id number] [facility] Thyroid Stim Hormone w/Rflxo n 05-16-2024 Thyroid Stim Hormone w/Rflx 1.69 u[iU]/mL Normal 0.45-5.33 [facility] Comment on above: Order Comment: Reaso n for Exam Type 2 diabetes mellitus without complication, without long- Reason for Exam Vitamin D deficiency Performed By: #### C BC, CMP, LIPID #### [facility] [address] [place] [id number] [facility] Thyrotropin [Units/volume] i n Serum or PlasmaOrdered By: Ajit Pettit on 05-16-2024 TSH Qn 1.69 m[IU]/L 0.45-5.33 [facility] Triglyceride [Mass/volume] i n Serum or PlasmaOrdered By: Ajit Pettit on 05-16-2024 Triglyceride [Mass/Vol] 321 mg/dL High 0-149 [facility] Comment on above: TRIG ATP III CLASSIF ICATIONTRIG less than 150 mg/dL NormalTRIG 150-199 mg/dL Borderline highTRIG 200-500 mg/dL High TRIG greater than 500 mg/dL Very highStandard traceable to the Center for Disease Conrtrol and Prevention (CDC) test method. Urea nitrogen [Mass/volume] in Serum or PlasmaOrdered By: Ajit Pettit on 05-16-2024 Urea nitrogen [Mass/Vol] 5 mg/dL Low 7-25 [facility] Comment on above: Order Comment: Reaso n for Exam Type 2 diabetes mellitus without complication, without long- Reason for Exam Vitamin D deficiency Performed By: #### C BC, CMP, LIPID #### [facility] [address] [place], [place] [id number] [facility] Vitamin D 25 Hydroxy Totalon 05-16-2024 Vitamin D 25 Hydroxy Total 46.2 ng/mL Normal 30-100 [facility] Comment on above: Order Comment: [...] practice guideline. JCEM. 2010; 96(7):1911-30. PERFORMED BY: [place] [id number] PATHOLOGIST CONTENT ADMINISTRATOR RIDGE HUERTA M.D. Performed By: #### C BC, CMP, LIPID #### [facility] [address] Vitamin D+Metabolites [Mass/ volume] in Serum or PlasmaOrdered By: Ajit Pettit on 05-16-2024 Vitamin D+Metabolites [Mass/Vol] 46.2 ng/mL 30-100 [facility] Comment on above: VITAMIN D STATUS 25( [place])VITAMIN D RANGE (ng/mL) Deficient <20 Insufficient 20 to <30Sufficient 30 to 100Reference: Jovanni MF,Dominique NC, Gillian NINA, et al. Evaluation,treatment, and prevention of vitamin D deficiency; an Endocrine Society clinical practice guideline. JCEM. 2010; 96(7):1911-30. Glucose Glucometer (BldC) [M ass/Vol]Ordered By: Abi Sunshine on 03-16-2024 Glucose [Mass/Vol] 140 mg/dL [facility] Comment on above: Random Glucose Refer ence Range is dependent on time and content of last meal. Glucose of more than 200 mg/dL in a nonstressed, ambulatory subject supports the diagnosis of Diabetes Mellitus. Alanine aminotransferase [En zymatic activity/volume] in Serum or PlasmaOrdered By: Ajit Pettit on 01-18-2024 ALT [Catalytic activity/Vol] 8 U/L 7-52 [facility] Albumin [Mass/volume] in Ser um or Plasma by Bromocresol green (BCG) dye binding methoOrdered By: Ajit Pettit on 01-18-2024 Albumin BCG dye [Mass/Vol] 4.1 g/dL 3.5-5.7 [facility] Alkaline phosphatase [Enzyma tic activity/volume] in Serum or PlasmaOrdered By: Ajit Pettit on 01-18-2024 ALP [Catalytic activity/Vol] 58 U/L 34-104 [facility] Aspartate aminotransferase [ Enzymatic activity/volume] in Serum or PlasmaOrdered By: Ajit Pettit on 01-18-2024 AST [Catalytic activity/Vol] 9 U/L Low 13-39 [facility] Basophils Auto (Bld) [#/Vol] Ordered By: Ajit Pettit on 01-18-2024 Basophils (Bld) [#/Vol] 0.2 10*3/uL 0.0-0.2 [facility] Basophils/100 WBC Auto (Bld) Ordered By: Ajit Pettit on 01-18-2024 Basophils/100 WBC (Bld) 1.2 % . [facility] Bilirubin.total [Mass/volume ] in Serum or PlasmaOrdered By: Ajit Pettit on 01-18-2024 Bilirubin [Mass/Vol] 0.4 mg/dL 0.3-1.0 [facility] Calcium [Mass/volume] in Ser um or PlasmaOrdered By: Ajit Pettit on 01-18-2024 Calcium [Mass/Vol] 9.5 mg/dL 8.6-10.3 [facility] Carbon dioxide, total [Moles /volume] in Serum or PlasmaOrdered By: Ajit Pettit on 01-18-2024 CO2 [Moles/Vol] 22.0 mmol/L 21.0-31.0 [facility] Chloride [Moles/volume] in S alissa or PlasmaOrdered By: Ajit Pettit on 01-18-2024 Chloride [Moles/Vol] 103 mmol/L 98-107 [facility] Cholesterol [Mass/volume] in Serum or PlasmaOrdered By: Ajit Pettit on 01-18-2024 Cholesterol [Mass/Vol] 188 mg/dL 140-200 [facility] Comment on above: Chol less than 200 m g/dl low riskChol 201-239 mg/dl borderline riskChol 240 mg/dl and greater high risk Cholesterol in LDL Calc [Mas s/Vol]Ordered By: Ajit Pettit on 01-18-2024 Cholesterol in LDL [Mass/Vol] TNP [facility] Comment on above: Test not performed Cholesterol in LDL [Mass/vol ume] in Serum or PlasmaOrdered By: Aijt Pettit on 01-18-2024 Cholesterol in LDL [Mass/Vol] 97 mg/dL 0-100 [facility] Comment on above: LDL ATP III CLASSIFI CATIONLDL less than 100 mg/dL OptimalLDL 100-129 mg/dL Near or above optimalLDL 130-159 mg/dL Borderline highLDL 160-189 mg/dL HighLDL greater than 189 mg/dL Very high Cholesterol in VLDL Calc [Ma ss/Vol]Ordered By: Ajit Pettit on 01-18-2024 Cholesterol in VLDL [Mass/Vol] 88 mg/dL [facility] Creatinine [Mass/volume] in Serum or PlasmaOrdered By: Ajit Pettit on 01-18-2024 Creatinine [Mass/Vol] 0.42 mg/dL Low 0.60-1.20 [facility] Eosinophils Auto (Bld) [#/Vo l]Ordered By: Ajit Pettit on 01-18-2024 Eosinophils (Bld) [#/Vol] 0.1 10*3/uL 0.0-0.45 [facility] Eosinophils/100 WBC Auto (Bl d)Ordered By: Ajit Pettit on 01-18-2024 Eosinophils/100 WBC (Bld) 0.9 % . [facility] Erythrocyte distribution wid th Auto (RBC) [Ratio]Ordered By: Ajit Pettit on 01-18-2024 Erythrocyte distribution width (RBC) [Ratio] 13.4 % 11.9-15.3 [facility] Globulin Calc (S) [Mass/Vol] Ordered By: Ajit Pettit on 01-18-2024 Globulin (S) [Mass/Vol] 2.5 g/dL [facility] Glucose [Mass/volume] in Ser um or PlasmaOrdered By: Ajit Pettit on 01-18-2024 Glucose [Mass/Vol] 107 mg/dL High 70-100 [facility] Comment on above: ADA recommended refe rence rangeRandom Glucose Reference Range is dependent on time and content of last meal. Glucose of more than 200 mg/dL in a nonstressed, ambulatory subject supports the diagnosis of Diabetes Mellitus. Hematocrit Auto (Bld) [Volum e fraction]Ordered By: Ajit Pettit on 01-18-2024 Hematocrit (Bld) [Volume fraction] 40.8 % 34.0-46.4 [facility] Hemoglobin [Mass/volume] in BloodOrdered By: Ajit Pettit on 01-18-2024 Hemoglobin (Bld) [Mass/Vol] 13.5 g/dL 11.8-15.4 [facility] Iron [Mass/volume] in Serum or PlasmaOrdered By: Ajit Pettit on 01-18-2024 Iron [Mass/Vol] 89 ug/dL 50-212 [facility] Iron binding capacity [Mass/ volume] in Serum or PlasmaOrdered By: Ajit Pettit on 01-18-2024 Iron binding capacity [Mass/Vol] 374 ug/dL 255-450 [facility] Iron saturation [Mass Fracti on] in Serum or PlasmaOrdered By: Ajit Pettit on 01-18-2024 Iron saturation [Mass fraction] 23.8 % 20-50 [facility] Leukocytes [#/volume] correc cherie for nucleated erythrocytes in Blood by Automated counOrdered By: Ajit Pettit on 01-18-2024 WBC corrected for nucl RBC Auto (Bld) [#/Vol] 12.4 10*3/uL High 3.8-11.6 [facility] Lymphocytes Auto (Bld) [#/Vo l]Ordered By: Ajit Pettit on 01-18-2024 Lymphocytes (Bld) [#/Vol] 3.7 10*3/uL 1.00-4.8 [facility] Lymphocytes/100 WBC Auto (Bl d)Ordered By: Ajit Pettit on 01-18-2024 Lymphocytes/100 WBC (Bld) 29.9 % . [facility] MCH Auto (RBC) [Entitic mass ]Ordered By: Ajit Pettit on 01-18-2024 MCH (RBC) [Entitic mass] 28.9 pg 24.7-34.3 [facility] MCHC Auto (RBC) [Mass/Vol]Or dered By: Ajit Pettit on 01-18-2024 MCHC (RBC) [Mass/Vol] 33.1 g/dL 32.0-35.0 [facility] MCV Auto (RBC) [Entitic vol] Ordered By: Ajit Pettit on 01-18-2024 MCV (RBC) [Entitic vol] 87.3 fL 80-100 [facility] Microalbumin [Mass/volume] i n UrineOrdered By: Ajit Pettit on 01-18-2024 Albumin DL <= 20 mg/L (U) [Mass/Vol] 0.8 mg/dL 0.0-1.8 [facility] Monocytes Auto (Bld) [#/Vol] Ordered By: Ajit Pettit on 01-18-2024 Monocytes (Bld) [#/Vol] 0.9 10*3/uL High 0.0-0.8 [facility] Monocytes/100 WBC Auto (Bld) Ordered By: Ajit Pettit on 01-18-2024 Monocytes/100 WBC (Bld) 7.1 % . [facility] Neutrophils Auto (Bld) [#/Vo l]Ordered By: Aijt Pettit on 01-18-2024 Neutrophils (Bld) [#/Vol] 7.6 10*3/uL 1.8-7.7 [facility] Neutrophils/100 WBC Auto (Bl d)Ordered By: Ajit Pettit on 01-18-2024 Neutrophils/100 WBC (Bld) 60.9 % . [facility] No Panel InformationOrdered By: Ajit Pettit on 01-18-2024 Estimated GFR (CKD-EPI) > 60.0 mL/Min [facility] Creatinine Clearance (Chem N/A [facility] Nucleated erythrocytes [Pres ence] in Blood by Automated countOrdered By: Ajit Pettit on 01-18-2024 Nucleated RBC Auto Ql (Bld) 0.2 /100{WBC} 0-0.5 [facility] Platelet mean volume Auto (B ld) [Entitic vol]Ordered By: Ajit Pettit on 01-18-2024 Platelet mean volume (Bld) [Entitic vol] 8.8 fL 6.3-10.7 [facility] Platelets Auto (Bld) [#/Vol] Ordered By: Ajit Pettit on 01-18-2024 Platelets (Bld) [#/Vol] 275 10*3/uL 150-450 [facility] Potassium [Moles/volume] in Serum or PlasmaOrdered By: Ajit Pettit on 01-18-2024 Potassium [Moles/Vol] 4.3 mmol/L 3.5-5.1 [facility] Protein [Mass/volume] in Ser um or PlasmaOrdered By: Ajit Pettit on 01-18-2024 Protein [Mass/Vol] 6.6 g/dL 6.4-8.9 [facility] RBC Auto (Bld) [#/Vol]Ordere d By: Ajit Pettit on 01-18-2024 RBC (Bld) [#/Vol] 4.67 10*6/uL 3.60-5.00 [facility] Serum or plasma albumin/glob ulin mass ratioOrdered By: Ajit Pettit on 01-18-2024 Albumin/Globulin [Mass ratio] 1.6 {ratio} [facility] Serum or plasma anion gap de terminationOrdered By: Ajit Pettit on 01-18-2024 Anion gap [Moles/Vol] 15.3 mmol/L High 6.0-15.0 [facility] Serum or plasma high density lipoprotein (HDL) cholesterol measurementOrdered By: Ajit Pettit on 01-18-2024 Cholesterol in HDL [Mass/Vol] 37 mg/dL 23-92 [facility] Comment on above: HDL CHOL ATP-III CLA SSIFICATION Cardiovascular RiskHDL > or equal to 60 mg/dL LOWHDL < 40 mg/dL HIGH Serum or plasma total choles terol/high density lipoprotein (HDL) cholesterol mass ratOrdered By: Ajit Pettit on 01-18-2024 Cholesterol.total/Suellen sterol in HDL [Mass ratio] 5.1 {ratio} <5.0 [facility] Sodium [Moles/volume] in Ser um or PlasmaOrdered By: Ajit Pettit on 01-18-2024 Sodium [Moles/Vol] 136 mmol/L 136-145 [facility] Transferrin [Mass/volume] in Serum or PlasmaOrdered By: Ajit Pettit on 01-18-2024 Transferrin [Mass/Vol] 267 mg/dL 203-362 [facility] Triglyceride [Mass/volume] i n Serum or PlasmaOrdered By: Ajit Pettit on 01-18-2024 Triglyceride [Mass/Vol] 441 mg/dL High 0-149 [facility] Comment on above: If the triglyceride [...] on 01-18-2024 Urea nitrogen [Mass/Vol] 10 mg/dL 04-27 [facility] WBC Auto (Bld) [#/Vol]Ordere d By: Ajit Pettit on 01-18-2024 WBC (Bld) [#/Vol] 12.4 10*3/uL High 3.8-11.6 [facility] Activated partial thrombopla stin time (aPTT) in platelet poor plasma by coagulation aOrdered By: Diego Noble on 10-16-2023 aPTT Coag (PPP) [Time] 28.2 s 25.1-36.5 [facility] Comment on above: A hematocrit value g reater than 55% may lead to inaccurate results in coagulation testing. Patients having hematocrit values >55% require a special collection tube for coagulation studies. Please contact the laboratory at [phone] for redraw instructions. Alanine aminotransferase [En zymatic activity/volume] in Serum or PlasmaOrdered By: Diego Noble on 10-16-2023 ALT [Catalytic activity/Vol] 10 U/L [facility] Albumin [Mass/volume] in Ser um or Plasma by Bromocresol green (BCG) dye binding methoOrdered By: Diego Noble on 10-16-2023 Albumin BCG dye [Mass/Vol] 3.7 g/dL 3.5-5.7 [facility] Alkaline phosphatase [Enzyma tic activity/volume] in Serum or PlasmaOrdered By: Diego Noble on 10-16-2023 ALP [Catalytic activity/Vol] 84 U/L 34-104 [facility] Aspartate aminotransferase [ Enzymatic activity/volume] in Serum or PlasmaOrdered By: Diego Noble on 10-16-2023 AST [Catalytic activity/Vol] 14 U/L 13-39 [facility] Basophils Auto (Bld) [#/Vol] Ordered By: Diego Noble on 10-16-2023 Basophils (Bld) [#/Vol] 0.4 10*3/uL 0.0-0.2 [facility] Basophils/100 WBC Auto (Bld) Ordered By: Diego Noble on 10-16-2023 Basophils/100 WBC (Bld) 2.6 % . [facility] Bilirubin.total [Mass/volume ] in Serum or PlasmaOrdered By: Diego Noble on 10-16-2023 Bilirubin [Mass/Vol] 0.2 mg/dL 0.3-1.0 [facility] Calcium [Mass/volume] in Ser um or PlasmaOrdered By: Diego oNble on 10-16-2023 Calcium [Mass/Vol] 9.1 mg/dL 8.6-10.3 [facility] Carbon dioxide, total [Moles /volume] in Serum or PlasmaOrdered By: Diego Noble on 10-16-2023 CO2 [Moles/Vol] 25.9 mmol/L 21.0-31.0 [facility] Chloride [Moles/volume] in S alissa or PlasmaOrdered By: Diego Noble on 10-16-2023 Chloride [Moles/Vol] 101 mmol/L 98-107 [facility] Creatinine [Mass/volume] in Serum or PlasmaOrdered By: Diego Noble on 10-16-2023 Creatinine [Mass/Vol] 0.55 mg/dL 0.60-1.20 [facility] Eosinophils Auto (Bld) [#/Vo l]Ordered By: Diego Noble on 10-16-2023 Eosinophils (Bld) [#/Vol] 0.5 10*3/uL 0.0-0.45 [facility] Eosinophils/100 WBC Auto (Bl d)Ordered By: Diego Noble on 10-16-2023 Eosinophils/100 WBC (Bld) 3.3 % . [facility] Erythrocyte distribution wid th Auto (RBC) [Ratio]Ordered By: Diego Noble on 10-16-2023 Erythrocyte distribution width (RBC) [Ratio] 13.0 % 11.9-15.3 [facility] Globulin Calc (S) [Mass/Vol] Ordered By: Diego Noble on 10-16-2023 Globulin (S) [Mass/Vol] 2.6 g/dL [facility] Glucose [Mass/volume] in Ser um or PlasmaOrdered By: Diego Noble on 10-16-2023 Glucose [Mass/Vol] 197 mg/dL 70-100 [facility] Comment on above: ADA recommended refe rence rangeRandom Glucose Reference Range is dependent on time and content of last meal. Glucose of more than 200 mg/dL in a nonstressed, ambulatory subject supports the diagnosis of Diabetes Mellitus. Hematocrit Auto (Bld) [Volum e fraction]Ordered By: Diego Noble on 10-16-2023 Hematocrit (Bld) [Volume fraction] 34.0 % 34.0-46.4 [facility] Hemoglobin [Mass/volume] in BloodOrdered By: Diego Noble on 10-16-2023 Hemoglobin (Bld) [Mass/Vol] 11.6 g/dL 11.8-15.4 [facility] INR in Platelet poor plasma by Coagulation assayOrdered By: Diego Noble on 10-16-2023 INR Coag (PPP) [Relative time] 0.9 {INR} [facility] Comment on above: INR Therapeutic Rang [...] on 10-16-2023 Lactate [Moles/Vol] 2.1 mmol/L 0.5-2.2 [facility] Comment on above: Critical Result : Ca lled to and read back by: MACO BECK at: 10/16/2023 12:33:20 by:RG Leukocytes [#/volume] correc cherie for nucleated erythrocytes in Blood by Automated counOrdered By: Diego Noble on 10-16-2023 WBC corrected for nucl RBC Auto (Bld) [#/Vol] 14.3 10*3/uL 3.8-11.6 [facility] Lymphocytes Auto (Bld) [#/Vo l]Ordered By: Diego Noble on 10-16-2023 Lymphocytes (Bld) [#/Vol] 4.9 10*3/uL 1.00-4.8 [facility] Lymphocytes/100 WBC Auto (Bl d)Ordered By: Diego Noble on 10-16-2023 Lymphocytes/100 WBC (Bld) 34.0 % . [facility] MCH Auto (RBC) [Entitic mass ]Ordered By: Diego Noble on 10-16-2023 MCH (RBC) [Entitic mass] 30.3 pg 24.7-34.3 [facility] MCHC Auto (RBC) [Mass/Vol]Or dered By: Diego Noble on 10-16-2023 MCHC (RBC) [Mass/Vol] 34.1 g/dL 32.0-35.0 [facility] MCV Auto (RBC) [Entitic vol] Ordered By: Diego Noble on 10-16-2023 MCV (RBC) [Entitic vol] 88.7 fL 80-100 [facility] Monocyte distribution width [Entitic volume] in Blood by AutomatedOrdered By: Diego Noble on 10-16-2023 Monocyte distribution width Auto (Bld) [Entitic vol] 20.62 % 0.00-20.00 [facility] Comment on above: For adults in ED, MD W > 20.0 may be associated with a higher risk of sepsis during the first 12 hrs of hospital admission Monocytes Auto (Bld) [#/Vol] Ordered By: Diego Noble on 10-16-2023 Monocytes (Bld) [#/Vol] 0.9 10*3/uL 0.0-0.8 [facility] Monocytes/100 WBC Auto (Bld) Ordered By: Diego Noble on 10-16-2023 Monocytes/100 WBC (Bld) 6.3 % . [facility] Neutrophils Auto (Bld) [#/Vo l]Ordered By: Diego Noble on 10-16-2023 Neutrophils (Bld) [#/Vol] 7.7 10*3/uL 1.8-7.7 [facility] Neutrophils/100 WBC Auto (Bl d)Ordered By: Diego Noble on 10-16-2023 Neutrophils/100 WBC (Bld) 53.8 % . [facility] No Panel InformationOrdered By: Diego Noble on 10-16-2023 Estimated GFR (CKD-EPI) > 60.0 mL/Min [facility] Creatinine Clearance (Chem 134.19 [facility] Nucleated erythrocytes [Pres ence] in Blood by Automated countOrdered By: Diego Noble on 10-16-2023 Nucleated RBC Auto Ql (Bld) 0.1 /100{WBC} 0-0.5 [facility] Platelet mean volume Auto (B ld) [Entitic vol]Ordered By: Diego Noble on 10-16-2023 Platelet mean volume (Bld) [Entitic vol] 6.7 fL 6.3-10.7 [facility] Platelets Auto (Bld) [#/Vol] Ordered By: Diego Noble on 10-16-2023 Platelets (Bld) [#/Vol] 454 10*3/uL 150-450 [facility] Potassium [Moles/volume] in Serum or PlasmaOrdered By: Diego Noble on 10-16-2023 Potassium [Moles/Vol] 4.3 mmol/L 3.5-5.1 [facility] Protein [Mass/volume] in Ser um or PlasmaOrdered By: Diego Noble on 10-16-2023 Protein [Mass/Vol] 6.3 g/dL 6.4-8.9 [facility] Prothrombin time (PT)Ordered By: Diego Noble on 10-16-2023 PT Coag (PPP) [Time] 9.9 s 9.0-12.9 [facility] Comment on above: A hematocrit value g reater than 55% may lead to inaccurate results in coagulation testing. Patients having hematocrit values >55% require a special collection tube for coagulation studies. Please contact the laboratory at [phone] for redraw instructions. RBC Auto (Bld) [#/Vol]Ordere d By: Diego Noble on 10-16-2023 RBC (Bld) [#/Vol] 3.84 10*6/uL 3.60-5.00 [facility] Serum or plasma albumin/glob ulin mass ratioOrdered By: Diego Noble on 10-16-2023 Albumin/Globulin [Mass ratio] 1.4 {ratio} [facility] Serum or plasma anion gap de terminationOrdered By: Diego Noble on 10-16-2023 Anion gap [Moles/Vol] 14.4 mmol/L 6.0-15.0 [facility] Sodium [Moles/volume] in Ser um or PlasmaOrdered By: Diego Noble on 10-16-2023 Sodium [Moles/Vol] 137 mmol/L 136-145 [facility] Urea nitrogen [Mass/volume] in Serum or PlasmaOrdered By: Diego Noble on 10-16-2023 Urea nitrogen [Mass/Vol] 12 mg/dL 7-25 [facility] WBC Auto (Bld) [#/Vol]Ordere d By: Diego Noble on 10-16-2023 WBC (Bld) [#/Vol] 14.3 10*3/uL 3.8-11.6 [facility] Basophils Auto (Bld) [#/Vol] Ordered By: Ilene Lopez on 10-09-2023 Basophils (Bld) [#/Vol] 0.1 10*3/uL 0.0-0.2 [facility] Basophils/100 WBC Auto (Bld) Ordered By: Ilene Lopez on 10-09-2023 Basophils/100 WBC (Bld) 0.4 % . [facility] Calcium [Mass/volume] in Ser um or PlasmaOrdered By: Ilene Lopez on 10-09-2023 Calcium [Mass/Vol] 7.9 mg/dL 8.6-10.3 [facility] Carbon dioxide, total [Moles /volume] in Serum or PlasmaOrdered By: Ilene Lopez on 10-09-2023 CO2 [Moles/Vol] 22.6 mmol/L 21.0-31.0 [facility] Chloride [Moles/volume] in S alissa or PlasmaOrdered By: Ilene Lopez on 10-09-2023 Chloride [Moles/Vol] 105 mmol/L 98-107 [facility] Clostridioides difficile tox in B tcdB gene [Presence] in Stool by NAYELY with probe deteOrdered By: BONG Velez on 10-09-2023 C. difficile toxin B tcdB gene NAYELY+probe Ql (Stl) Positive Negative [facility] Comment on above: Results calledat 161 9 on 10/09/23 Testing performed by RT-PCR Creatinine [Mass/volume] in Serum or PlasmaOrdered By: Ilene Lopez on 10-09-2023 Creatinine [Mass/Vol] 0.48 mg/dL 0.60-1.20 [facility] Eosinophils Auto (Bld) [#/Vo l]Ordered By: Ilene Lopez on 10-09-2023 Eosinophils (Bld) [#/Vol] 0.5 10*3/uL 0.0-0.45 [facility] Eosinophils/100 WBC Auto (Bl d)Ordered By: Ilene Lopez on 10-09-2023 Eosinophils/100 WBC (Bld) 3.5 % . [facility] Erythrocyte distribution wid th Auto (RBC) [Ratio]Ordered By: Ilene Calderon on 10-09-2023 Erythrocyte distribution width (RBC) [Ratio] 13.2 % 11.9-15.3 [facility] Glucose Glucometer (BldC) [M ass/Vol]Ordered By: Salazar Cabrera on 10-09-2023 Glucose [Mass/Vol] 299 mg/dL [facility] Comment on above: Random Glucose Refer ence Range is dependent on time and content of last meal. Glucose of more than 200 mg/dL in a nonstressed, ambulatory subject supports the diagnosis of Diabetes Mellitus. Glucose [Mass/volume] in Ser um or PlasmaOrdered By: lIene Lopez on 10-09-2023 Glucose [Mass/Vol] 143 mg/dL 70-100 [facility] Comment on above: ADA recommended refe rence rangeRandom Glucose Reference Range is dependent on time and content of last meal. Glucose of more than 200 mg/dL in a nonstressed, ambulatory subject supports the diagnosis of Diabetes Mellitus. Hematocrit Auto (Bld) [Volum e fraction]Ordered By: Ilene Lopez on 10-09-2023 Hematocrit (Bld) [Volume fraction] 30.3 % 34.0-46.4 [facility] Hemoglobin [Mass/volume] in BloodOrdered By: Ilene Lopez on 10-09-2023 Hemoglobin (Bld) [Mass/Vol] 10.3 g/dL 11.8-15.4 [facility] Leukocytes [#/volume] correc cheire for nucleated erythrocytes in Blood by Automated counOrdered By: Ilene Lopez on 10-09-2023 WBC corrected for nucl RBC Auto (Bld) [#/Vol] 13.6 10*3/uL 3.8-11.6 [facility] Lymphocytes Auto (Bld) [#/Vo l]Ordered By: Ilene Lopez on 10-09-2023 Lymphocytes (Bld) [#/Vol] 2.2 10*3/uL 1.00-4.8 [facility] Lymphocytes/100 WBC Auto (Bl d)Ordered By: Ilene Lopez on 10-09-2023 Lymphocytes/100 WBC (Bld) 16.5 % . [facility] MCH Auto (RBC) [Entitic mass ]Ordered By: Ilene Lopez on 10-09-2023 MCH (RBC) [Entitic mass] 29.9 pg 24.7-34.3 [facility] MCHC Auto (RBC) [Mass/Vol]Or dered By: Ilene Lopez on 10-09-2023 MCHC (RBC) [Mass/Vol] 34.0 g/dL 32.0-35.0 [facility] MCV Auto (RBC) [Entitic vol] Ordered By: Ilene Lopez on 10-09-2023 MCV (RBC) [Entitic vol] 88.1 fL 80-100 [facility] Monocytes Auto (Bld) [#/Vol] Ordered By: Ilene Lopez on 10-09-2023 Monocytes (Bld) [#/Vol] 1.3 10*3/uL 0.0-0.8 [facility] Monocytes/100 WBC Auto (Bld) Ordered By: Ilene Lopez on 10-09-2023 Monocytes/100 WBC (Bld) 9.5 % . [facility] Neutrophils Auto (Bld) [#/Vo l]Ordered By: Ilene Lopez on 10-09-2023 Neutrophils (Bld) [#/Vol] 9.6 10*3/uL 1.8-7.7 [facility] Neutrophils/100 WBC Auto (Bl d)Ordered By: Ilene Lopez on 10-09-2023 Neutrophils/100 WBC (Bld) 70.1 % . [facility] No Panel InformationOrdered By: Salazar Cabrera on 10-09-2023 Bedside Glucose Comment Glu2: cleaned meter [facility] No Panel InformationOrdered By: Ilene Lopez on 10-09-2023 Estimated GFR (CKD-EPI) > 60.0 mL/Min [facility] Creatinine Clearance (Chem 153.15 [facility] Nucleated erythrocytes [Pres ence] in Blood by Automated countOrdered By: Ilene Lopez on 10-09-2023 Nucleated RBC Auto Ql (Bld) 0.1 /100{WBC} 0-0.5 [facility] Platelet mean volume Auto (B ld) [Entitic vol]Ordered By: Ilene Lopez on 10-09-2023 Platelet mean volume (Bld) [Entitic vol] 7.9 fL 6.3-10.7 [facility] Platelets Auto (Bld) [#/Vol] Ordered By: Ilene Lopez on 10-09-2023 Platelets (Bld) [#/Vol] 242 10*3/uL 150-450 [facility] Potassium [Moles/volume] in Serum or PlasmaOrdered By: Ilene Lopez on 10-09-2023 Potassium [Moles/Vol] 3.4 mmol/L 3.5-5.1 [facility] RBC Auto (Bld) [#/Vol]Ordere d By: Ilene Lopez on 10-09-2023 RBC (Bld) [#/Vol] 3.44 10*6/uL 3.60-5.00 [facility] Serum or plasma anion gap de terminationOrdered By: Ilene Lopez on 10-09-2023 Anion gap [Moles/Vol] 11.8 mmol/L 6.0-15.0 [facility] Sodium [Moles/volume] in Ser um or PlasmaOrdered By: Ilene Lopez on 10-09-2023 Sodium [Moles/Vol] 136 mmol/L 136-145 [facility] Stool bacteria identificatio n by cultureOrdered By: BONG Velez on 10-09-2023 Bacteria identified Cx Nom (Stl) [facility] Urea nitrogen [Mass/volume] in Serum or PlasmaOrdered By: Ilene Lopez on 10-09-2023 Urea nitrogen [Mass/Vol] 6 mg/dL 7-25 [facility] WBC Auto (Bld) [#/Vol]Ordere d By: Ilene Lopez on 10-09-2023 WBC (Bld) [#/Vol] 13.6 10*3/uL 3.8-11.6 [facility] Alanine aminotransferase [En zymatic activity/volume] in Serum or PlasmaOrdered By: BONG Velez on 10-08-2023 ALT [Catalytic activity/Vol] 31 U/L 7-52 [facility] Albumin [Mass/volume] in Ser um or Plasma by Bromocresol green (BCG) dye binding methoOrdered By: BONG Velez on 10-08-2023 Albumin BCG dye [Mass/Vol] 3.7 g/dL 3.5-5.7 [facility] Alkaline phosphatase [Enzyma tic activity/volume] in Serum or PlasmaOrdered By: BONG Velez on 10-08-2023 ALP [Catalytic activity/Vol] 61 U/L 34-104 [facility] Aspartate aminotransferase [ Enzymatic activity/volume] in Serum or PlasmaOrdered By: BONG Velez on 10-08-2023 AST [Catalytic activity/Vol] 40 U/L 13-39 [facility] Automated erythrocytes count in urine sediment (number/area)Ordered By: BONG Velez on 10-08-2023 RBC Auto (Urine sed) [#/Area] 5-9 [HPF] 0-4 [facility] Automated leukocytes count i n urine sediment (number/area)Ordered By: BONG Velez on 10-08-2023 WBC Auto (Urine sed) [#/Area] 3-4 [HPF] 0-4 [facility] Automated urine hyaline cast s count (number/volume)Ordered By: BONG Velez on 10-08-2023 Hyaline casts Auto (U) [#/Vol] None seen [LPF] 0-1 [facility] Bilirubin Test strip Ql (U)O rdered By: BONG Velez on 10-08-2023 Bilirubin Ql (U) 1+ Negative [facility] Bilirubin.total [Mass/volume ] in Serum or PlasmaOrdered By: BONG Velez on 10-08-2023 Bilirubin [Mass/Vol] 0.6 mg/dL 0.3-1.0 [facility] Casts typing in urine sedime nt by light microscopyOrdered By: BONG Velez on 10-08-2023 Casts LM Nom (Urine sed) None seen [LPF] None Seen [facility] Color Auto (U)Ordered By: MD ALMA Velez on 10-08-2023 Color (U) Fertile Yellow [facility] Globulin Calc (S) [Mass/Vol] Ordered By: BONG Velez on 10-08-2023 Globulin (S) [Mass/Vol] 2.6 g/dL [facility] Ketones Auto test strip (U) [Mass/Vol]Ordered By: BONG Velez on 10-08-2023 Ketones (U) [Mass/Vol] Trace Negative [facility] Lactate [Moles/volume] in Se rum or PlasmaOrdered By: BONG Velez on 10-08-2023 Lactate [Moles/Vol] 1.9 mmol/L 0.5-2.2 [facility] Nitrite Test strip Ql (U)Ord ered By: BONG Velez on 10-08-2023 Nitrite Ql (U) Negative Negative [facility] Protein Auto test strip (U) [Mass/Vol]Ordered By: BONG Velez on 10-08-2023 Protein (U) [Mass/Vol] 30 mg/dL Negative [facility] Protein [Mass/volume] in Ser um or PlasmaOrdered By: BONG Velez on 10-08-2023 Protein [Mass/Vol] 6.3 g/dL 6.4-8.9 [facility] Serum or plasma albumin/glob ulin mass ratioOrdered By: BONG Velez on 10-08-2023 Albumin/Globulin [Mass ratio] 1.4 {ratio} [facility] Specific gravity Auto test s trip (U) [Rel density]Ordered By: BONG Velez on 10-08-2023 Specific gravity (U) [Rel density] > 1.050 1.001-1.03 0 [facility] Squamous epithelial cells de tection in urine sediment by light microscopyOrdered By: BONG Velez on 10-08-2023 Epithelial cells.squamous LM Ql (Urine sed) 5-9 [HPF] 0-2 [facility] Urine bacteria detection by automated methodOrdered By: BONG Velez on 10-08-2023 Bacteria Auto Ql (U) None seen None Seen [facility] Urine clarity by refractomet ry automatedOrdered By: BONG Velez on 10-08-2023 Clarity Refractometry automated (U) Turbid Clear [facility] Urine glucose measurement by automated test strip (mass/volume)Ordered By: ARIELLE Velez on 10-08-2023 Glucose Auto test strip (U) [Mass/Vol] 250 mg/dL Normal [facility] Urine hemoglobin detection b y automated test stripOrdered By: BONG Velez on 10-08-2023 Hemoglobin Auto test strip Ql (U) Negative Negative [facility] Urine leukocyte esterase det ection by automated test stripOrdered By: BONG Velez on 10-08-2023 Leukocyte esterase Auto test strip Ql (U) Negative Negative [facility] Urobilinogen Auto test strip (U) [Mass/Vol]Ordered By: BONG Velez on 10-08-2023 Urobilinogen (U) [Mass/Vol] Normal mg/dL Normal [facility] pH Auto test strip (U)Ordere d By: BONG Velez on 10-08-2023 pH (U) 5.5 [pH] 5.0-9.0 [facility] Glucose Glucometer (BldC) [M ass/Vol]Ordered By: Carri Manuel on 09-28-2023 Glucose [Mass/Vol] 196 mg/dL [facility] Comment on above: Random Glucose Refer ence Range is dependent on time and content of last meal. Glucose of more than 200 mg/dL in a nonstressed, ambulatory subject supports the diagnosis of Diabetes Mellitus. HCG ( test) IA.rapi d Ql (U)Ordered By: Edna Álvarez on 09-28-2023 HCG ( test) Ql (U) Negative [facility] No Panel InformationOrdered By: Carri Manuel on 09-28-2023 Bedside Glucose Comment Glu2: cleaned meter [facility] Basophils Auto (Bld) [#/Vol] Ordered By: Carri Manuel on 09-16-2023 Basophils (Bld) [#/Vol] 0.1 10*3/uL 0.0-0.2 [facility] Basophils/100 WBC Auto (Bld) Ordered By: Carri Manuel on 09-16-2023 Basophils/100 WBC (Bld) 0.6 % . [facility] Calcium [Mass/volume] in Ser um or PlasmaOrdered By: Carri Manuel on 09-16-2023 Calcium [Mass/Vol] 9.3 mg/dL 8.6-10.3 [facility] Carbon dioxide, total [Moles /volume] in Serum or PlasmaOrdered By: Carri Manuel on 09-16-2023 CO2 [Moles/Vol] 25.5 mmol/L 21.0-31.0 [facility] Chloride [Moles/volume] in S alissa or PlasmaOrdered By: Carri Manuel on 09-16-2023 Chloride [Moles/Vol] 99 mmol/L 98-107 [facility] Creatinine [Mass/volume] in Serum or PlasmaOrdered By: Carri Manuel on 09-16-2023 Creatinine [Mass/Vol] 0.68 mg/dL 0.60-1.20 [facility] Eosinophils Auto (Bld) [#/Vo l]Ordered By: Carri Manuel on 09-16-2023 Eosinophils (Bld) [#/Vol] 0.1 10*3/uL 0.0-0.45 [facility] Eosinophils/100 WBC Auto (Bl d)Ordered By: Carri Manuel on 09-16-2023 Eosinophils/100 WBC (Bld) 0.5 % . [facility] Erythrocyte distribution wid th Auto (RBC) [Ratio]Ordered By: Carri Manuel on 09-16-2023 Erythrocyte distribution width (RBC) [Ratio] 13.3 % 11.9-15.3 [facility] Glucose [Mass/volume] in Ser um or PlasmaOrdered By: Carri Manuel on 09-16-2023 Glucose [Mass/Vol] 355 mg/dL 70-100 [facility] Comment on above: ADA recommended refe rence rangeRandom Glucose Reference Range is dependent on time and content of last meal. Glucose of more than 200 mg/dL in a nonstressed, ambulatory subject supports the diagnosis of Diabetes Mellitus. Hematocrit Auto (Bld) [Volum e fraction]Ordered By: Carri Manuel on 09-16-2023 Hematocrit (Bld) [Volume fraction] 38.3 % 34.0-46.4 [facility] Hemoglobin [Mass/volume] in BloodOrdered By: Carri Manuel on 09-16-2023 Hemoglobin (Bld) [Mass/Vol] 12.8 g/dL 11.8-15.4 [facility] Leukocytes [#/volume] correc cherie for nucleated erythrocytes in Blood by Automated counOrdered By: Carri Manuel on 09-16-2023 WBC corrected for nucl RBC Auto (Bld) [#/Vol] 12.5 10*3/uL 3.8-11.6 [facility] Lymphocytes Auto (Bld) [#/Vo l]Ordered By: Carri Manuel on 09-16-2023 Lymphocytes (Bld) [#/Vol] 3.1 10*3/uL 1.00-4.8 [facility] Lymphocytes/100 WBC Auto (Bl d)Ordered By: Carri Manuel on 09-16-2023 Lymphocytes/100 WBC (Bld) 24.9 % . [facility] MCH Auto (RBC) [Entitic mass ]Ordered By: Carri Manuel on 09-16-2023 MCH (RBC) [Entitic mass] 29.7 pg 24.7-34.3 [facility] MCHC Auto (RBC) [Mass/Vol]Or dered By: Carri Manuel on 09-16-2023 MCHC (RBC) [Mass/Vol] 33.5 g/dL 32.0-35.0 [facility] MCV Auto (RBC) [Entitic vol] Ordered By: Carri Manuel on 09-16-2023 MCV (RBC) [Entitic vol] 88.8 fL 80-100 [facility] Monocytes Auto (Bld) [#/Vol] Ordered By: Carri Manuel on 09-16-2023 Monocytes (Bld) [#/Vol] 0.9 10*3/uL 0.0-0.8 [facility] Monocytes/100 WBC Auto (Bld) Ordered By: Carri Manuel on 09-16-2023 Monocytes/100 WBC (Bld) 7.5 % . [facility] Neutrophils Auto (Bld) [#/Vo l]Ordered By: Carri Manuel on 09-16-2023 Neutrophils (Bld) [#/Vol] 8.3 10*3/uL 1.8-7.7 [facility] Neutrophils/100 WBC Auto (Bl d)Ordered By: Carri Manuel on 09-16-2023 Neutrophils/100 WBC (Bld) 66.5 % . [facility] No Panel InformationOrdered By: Carri Manuel on 09-16-2023 Estimated GFR (CKD-EPI) > 60.0 mL/Min [facility] Creatinine Clearance (Chem N/A [facility] Nucleated erythrocytes [Pres ence] in Blood by Automated countOrdered By: Carri Manuel on 09-16-2023 Nucleated RBC Auto Ql (Bld) 0.1 /100{WBC} 0-0.5 [facility] Platelet mean volume Auto (B ld) [Entitic vol]Ordered By: Carri Manuel on 09-16-2023 Platelet mean volume (Bld) [Entitic vol] 8.2 fL 6.3-10.7 [facility] Platelets Auto (Bld) [#/Vol] Ordered By: Carri Manuel on 09-16-2023 Platelets (Bld) [#/Vol] 305 10*3/uL 150-450 [facility] Potassium [Moles/volume] in Serum or PlasmaOrdered By: Carri Manuel on 09-16-2023 Potassium [Moles/Vol] 5.0 mmol/L 3.5-5.1 [facility] RBC Auto (Bld) [#/Vol]Ordere d By: Carri Manuel on 09-16-2023 RBC (Bld) [#/Vol] 4.31 10*6/uL 3.60-5.00 [facility] Serum or plasma anion gap de terminationOrdered By: Carri Manuel on 09-16-2023 Anion gap [Moles/Vol] 14.5 mmol/L 6.0-15.0 [facility] Sodium [Moles/volume] in Ser um or PlasmaOrdered By: Carri Manuel on 09-16-2023 Sodium [Moles/Vol] 134 mmol/L 136-145 [facility] Urea nitrogen [Mass/volume] in Serum or PlasmaOrdered By: Carri Manuel on 09-16-2023 Urea nitrogen [Mass/Vol] 13 mg/dL 7-25 [facility] WBC Auto (Bld) [#/Vol]Ordere d By: Carri Manuel on 09-16-2023 WBC (Bld) [#/Vol] 12.5 10*3/uL 3.8-11.6 [facility] Glucose Glucometer (BldC) [M ass/Vol]Ordered By: Carri Manuel on 07-13-2023 Glucose [Mass/Vol] 119 mg/dL [facility] Comment on above: Random Glucose Refer ence Range is dependent on time and content of last meal. Glucose of more than 200 mg/dL in a nonstressed, ambulatory subject supports the diagnosis of Diabetes Mellitus. HCG ( test) Funmi jackson Ql (U)Ordered By: Julio Monroe on 07-13-2023 HCG ( test) Ql (U) Negative [facility] No Panel InformationOrdered By: Carri Manuel on 07-13-2023 Bedside Glucose Comment Glu2: cleaned meter [facility] Basophils Auto (Bld) [#/Vol] Ordered By: Carri Manuel on 06-30-2023 Basophils (Bld) [#/Vol] 0.1 10*3/uL 0.0-0.2 [facility] Basophils/100 WBC Auto (Bld) Ordered By: Carri Manuel on 06-30-2023 Basophils/100 WBC (Bld) 0.7 % . [facility] Calcium [Mass/volume] in Ser um or PlasmaOrdered By: Carri Manuel on 06-30-2023 Calcium [Mass/Vol] 9.2 mg/dL 8.6-10.3 [facility] Carbon dioxide, total [Moles /volume] in Serum or PlasmaOrdered By: Carri Manuel on 06-30-2023 CO2 [Moles/Vol] 26.7 mmol/L 21.0-31.0 [facility] Chloride [Moles/volume] in S alissa or PlasmaOrdered By: Carri Manuel on 06-30-2023 Chloride [Moles/Vol] 100 mmol/L 98-107 [facility] Creatinine [Mass/volume] in Serum or PlasmaOrdered By: Carri Manuel on 06-30-2023 Creatinine [Mass/Vol] 0.54 mg/dL 0.60-1.20 [facility] Eosinophils Auto (Bld) [#/Vo l]Ordered By: Carri Manuel on 06-30-2023 Eosinophils (Bld) [#/Vol] 0.1 10*3/uL 0.0-0.45 [facility] Eosinophils/100 WBC Auto (Bl d)Ordered By: Carri Manuel on 06-30-2023 Eosinophils/100 WBC (Bld) 0.4 % . [facility] Erythrocyte distribution wid th Auto (RBC) [Ratio]Ordered By: Carri Manuel on 06-30-2023 Erythrocyte distribution width (RBC) [Ratio] 13.3 % 11.9-15.3 [facility] Glucose [Mass/volume] in Ser um or PlasmaOrdered By: Carri Manuel on 06-30-2023 Glucose [Mass/Vol] 134 mg/dL 70-100 [facility] Comment on above: ADA recommended refe rence rangeRandom Glucose Reference Range is dependent on time and content of last meal. Glucose of more than 200 mg/dL in a nonstressed, ambulatory subject supports the diagnosis of Diabetes Mellitus. Hematocrit Auto (Bld) [Volum e fraction]Ordered By: Carri Manuel on 06-30-2023 Hematocrit (Bld) [Volume fraction] 38.9 % 34.0-46.4 [facility] Hemoglobin [Mass/volume] in BloodOrdered By: Carri Manuel on 06-30-2023 Hemoglobin (Bld) [Mass/Vol] 13.0 g/dL 11.8-15.4 [facility] Leukocytes [#/volume] correc cherie for nucleated erythrocytes in Blood by Automated counOrdered By: Carri Manuel on 06-30-2023 WBC corrected for nucl RBC Auto (Bld) [#/Vol] 15.4 10*3/uL 3.8-11.6 [facility] Lymphocytes Auto (Bld) [#/Vo l]Ordered By: Carri Manuel on 06-30-2023 Lymphocytes (Bld) [#/Vol] 4.3 10*3/uL 1.00-4.8 [facility] Lymphocytes/100 WBC Auto (Bl d)Ordered By: Carri Manuel on 06-30-2023 Lymphocytes/100 WBC (Bld) 27.8 % . [facility] MCH Auto (RBC) [Entitic mass ]Ordered By: Carri Manuel on 06-30-2023 MCH (RBC) [Entitic mass] 30.0 pg 24.7-34.3 [facility] MCHC Auto (RBC) [Mass/Vol]Or dered By: Carri Manuel on 06-30-2023 MCHC (RBC) [Mass/Vol] 33.5 g/dL 32.0-35.0 [facility] MCV Auto (RBC) [Entitic vol] Ordered By: Carri Manuel on 06-30-2023 MCV (RBC) [Entitic vol] 89.6 fL 80-100 [facility] [facility] Monocytes Auto (Bld) [#/Vol] Ordered By: Carri Manuel on 06-30-2023 Monocytes (Bld) [#/Vol] 1.2 10*3/uL 0.0-0.8 [facility] Monocytes/100 WBC Auto (Bld) Ordered By: Carri Manuel on 06-30-2023 Monocytes/100 WBC (Bld) 7.5 % . [facility] Neutrophils Auto (Bld) [#/Vo l]Ordered By: Carri Manuel on 06-30-2023 Neutrophils (Bld) [#/Vol] 9.8 10*3/uL 1.8-7.7 [facility] Neutrophils/100 WBC Auto (Bl d)Ordered By: Carri Manuel on 06-30-2023 Neutrophils/100 WBC (Bld) 63.6 % . [facility] No Panel InformationOrdered By: Carri Manuel on 06-30-2023 Estimated GFR (CKD-EPI) > 60.0 mL/Min [facility] Creatinine Clearance (Chem N/A [facility] Nucleated erythrocytes [Pres ence] in Blood by Automated countOrdered By: Carri Manuel on 06-30-2023 Nucleated RBC Auto Ql (Bld) 0.0 /100{WBC} 0-0.5 [facility] Platelet mean volume Auto (B ld) [Entitic vol]Ordered By: Carri Manuel on 06-30-2023 Platelet mean volume (Bld) [Entitic vol] 7.9 fL 6.3-10.7 [facility] Platelets Auto (Bld) [#/Vol] Ordered By: Carri Manuel on 06-30-2023 Platelets (Bld) [#/Vol] 275 10*3/uL 150-450 [facility] Potassium [Moles/volume] in Serum or PlasmaOrdered By: Carri Manuel on 06-30-2023 Potassium [Moles/Vol] 4.3 mmol/L 3.5-5.1 [facility] RBC Auto (Bld) [#/Vol]Ordere d By: Carri Manuel on 06-30-2023 RBC (Bld) [#/Vol] 4.34 10*6/uL 3.60-5.00 [facility] Serum or plasma anion gap de terminationOrdered By: Carri Manuel on 06-30-2023 Anion gap [Moles/Vol] 14.6 mmol/L 6.0-15.0 [facility] Sodium [Moles/volume] in Ser um or PlasmaOrdered By: Carri Manuel on 06-30-2023 Sodium [Moles/Vol] 137 mmol/L 136-145 [facility] Urea nitrogen [Mass/volume] in Serum or PlasmaOrdered By: Carri Manuel on 06-30-2023 Urea nitrogen [Mass/Vol] 11 mg/dL 04-27 [facility] WBC Auto (Bld) [#/Vol]Ordere d By: Carri Manuel on 06-30-2023 WBC (Bld) [#/Vol] 15.4 10*3/uL 3.8-11.6 [facility] HCG ( test) IA.rapi d Ql (U)Ordered By: Kyler Miramontes on 05-05-2023 HCG ( test) Ql (U) Negative [facility] Alanine aminotransferase [En zymatic activity/volume] in Serum or PlasmaOrdered By: Ajit Pettit on 05-04-2023 ALT [Catalytic activity/Vol] 17 U/L 7 [facility] Albumin [Mass/volume] in Ser um or Plasma by Bromocresol green (BCG) dye binding methoOrdered By: Ajit Pettit on 05-04-2023 Albumin BCG dye [Mass/Vol] 4.4 g/dL 3.5-5.7 [facility] Alkaline phosphatase [Enzyma tic activity/volume] in Serum or PlasmaOrdered By: Ajit Pettit on 05-04-2023 ALP [Catalytic activity/Vol] 55 U/L 34-104 [facility] Aspartate aminotransferase [ Enzymatic activity/volume] in Serum or PlasmaOrdered By: Ajit Pettit on 05-04-2023 AST [Catalytic activity/Vol] 18 U/L 13-39 [facility] Basophils Auto (Bld) [#/Vol] Ordered By: Ajit Pettit on 05-04-2023 Basophils (Bld) [#/Vol] 0.1 10*3/uL 0.0-0.2 [facility] Basophils/100 WBC Auto (Bld) Ordered By: Ajit Pettit on 05-04-2023 Basophils/100 WBC (Bld) 0.9 % . [facility] Bilirubin.total [Mass/volume ] in Serum or PlasmaOrdered By: Ajit Pettit on 05-04-2023 Bilirubin [Mass/Vol] 0.3 mg/dL 0.3-1.0 [facility] Calcium [Mass/volume] in Ser um or PlasmaOrdered By: Ajit Pettit on 05-04-2023 Calcium [Mass/Vol] 9.6 mg/dL 8.6-10.3 [facility] Carbon dioxide, total [Moles /volume] in Serum or PlasmaOrdered By: Ajit Pettit on 05-04-2023 CO2 [Moles/Vol] 28.5 mmol/L 21.0-31.0 [facility] Chloride [Moles/volume] in S alissa or PlasmaOrdered By: Ajit Pettit on 05-04-2023 Chloride [Moles/Vol] 100 mmol/L 98-107 [facility] Cholesterol [Mass/volume] in Serum or PlasmaOrdered By: Ajit Pettit on 05-04-2023 Cholesterol [Mass/Vol] 180 mg/dL 140-200 [facility] Comment on above: Chol less than 200 m g/dl low riskChol 201-239 mg/dl borderline riskChol 240 mg/dl and greater high risk Cholesterol in LDL Calc [Mas s/Vol]Ordered By: Ajit Pettit on 05-04-2023 Cholesterol in LDL [Mass/Vol] 81 mg/dL 0-100 [facility] Comment on above: LDL ATP III CLASSIFI CATIONLDL less than 100 mg/dL OptimalLDL 100-129 mg/dL Near or above optimalLDL 130-159 mg/dL Borderline highLDL 160-189 mg/dL HighLDL greater than 189 mg/dL Very high Cholesterol in VLDL Calc [Ma ss/Vol]Ordered By: Ajit Pettit on 05-04-2023 Cholesterol in VLDL [Mass/Vol] 46 mg/dL [facility] Creatinine [Mass/volume] in Serum or PlasmaOrdered By: Ajit Pettit on 05-04-2023 Creatinine [Mass/Vol] 0.65 mg/dL 0.60-1.20 [facility] Eosinophils Auto (Bld) [#/Vo l]Ordered By: Ajit Pettit on 05-04-2023 Eosinophils (Bld) [#/Vol] 0.1 10*3/uL 0.0-0.45 [facility] Eosinophils/100 WBC Auto (Bl d)Ordered By: Ajit Pettit on 05-04-2023 Eosinophils/100 WBC (Bld) 0.5 % . [facility] Erythrocyte distribution wid th Auto (RBC) [Ratio]Ordered By: Ajit Pettit on 05-04-2023 Erythrocyte distribution width (RBC) [Ratio] 13.4 % 11.9-15.3 [facility] Ferritin [Mass/volume] in Se rum or PlasmaOrdered By: Ajit Pettit on 05-04-2023 Ferritin [Mass/Vol] 90.4 ng/mL 11.0-306.8 [facility] Globulin Calc (S) [Mass/Vol] Ordered By: Ajit Pettit on 05-04-2023 Globulin (S) [Mass/Vol] 2.3 g/dL [facility] Glucose [Mass/volume] in Ser um or PlasmaOrdered By: Ajit Pettit on 05-04-2023 Glucose [Mass/Vol] 124 mg/dL 70-100 [facility] Comment on above: ADA recommended refe rence rangeRandom Glucose Reference Range is dependent on time and content of last meal. Glucose of more than 200 mg/dL in a nonstressed, ambulatory subject supports the diagnosis of Diabetes Mellitus. Hematocrit Auto (Bld) [Volum e fraction]Ordered By: Ajit Pettit on 05-04-2023 Hematocrit (Bld) [Volume fraction] 41.7 % 34.0-46.4 [facility] Hemoglobin [Mass/volume] in BloodOrdered By: Ajit Pettit on 05-04-2023 Hemoglobin (Bld) [Mass/Vol] 14.0 g/dL 11.8-15.4 [facility] Iron [Mass/volume] in Serum or PlasmaOrdered By: Ajit Pettit on 05-04-2023 Iron [Mass/Vol] 95 ug/dL 50-212 [facility] Iron binding capacity [Mass/ volume] in Serum or PlasmaOrdered By: Ajit Pettit on 05-04-2023 Iron binding capacity [Mass/Vol] 476 ug/dL 255-450 [facility] Iron saturation [Mass Fracti on] in Serum or PlasmaOrdered By: Ajit Pettit on 05-04-2023 Iron saturation [Mass fraction] 20.0 % 20-50 [facility] Leukocytes [#/volume] correc cherie for nucleated erythrocytes in Blood by Automated counOrdered By: Ajit Pettit on 05-04-2023 WBC corrected for nucl RBC Auto (Bld) [#/Vol] 14.4 10*3/uL 3.8-11.6 [facility] Lymphocytes Auto (Bld) [#/Vo l]Ordered By: Ajit Pettit on 05-04-2023 Lymphocytes (Bld) [#/Vol] 3.2 10*3/uL 1.00-4.8 [facility] Lymphocytes/100 WBC Auto (Bl d)Ordered By: Ajit Pettit on 05-04-2023 Lymphocytes/100 WBC (Bld) 22.3 % . [facility] MCH Auto (RBC) [Entitic mass ]Ordered By: Ajit Pettit on 05-04-2023 MCH (RBC) [Entitic mass] 29.8 pg 24.7-34.3 [facility] MCHC Auto (RBC) [Mass/Vol]Or dered By: Ajit Pettit on 05-04-2023 MCHC (RBC) [Mass/Vol] 33.5 g/dL 32.0-35.0 [facility] MCV Auto (RBC) [Entitic vol] Ordered By: Ajit Pettit on 05-04-2023 MCV (RBC) [Entitic vol] 89.1 fL 80-100 [facility] Monocytes Auto (Bld) [#/Vol] Ordered By: Ajit Pettit on 05-04-2023 Monocytes (Bld) [#/Vol] 0.9 10*3/uL 0.0-0.8 [facility] Monocytes/100 WBC Auto (Bld) Ordered By: Ajit Pettit on 05-04-2023 Monocytes/100 WBC (Bld) 6.3 % . [facility] Neutrophils Auto (Bld) [#/Vo l]Ordered By: Ajit Pettit on 05-04-2023 Neutrophils (Bld) [#/Vol] 10.1 10*3/uL 1.8-7.7 [facility] Neutrophils/100 WBC Auto (Bl d)Ordered By: Ajit Pettit on 05-04-2023 Neutrophils/100 WBC (Bld) 70.0 % . [facility] No Panel InformationOrdered By: Ajit Pettit on 05-04-2023 Estimated GFR (CKD-EPI) > 60.0 mL/Min [facility] Creatinine Clearance (Chem N/A [facility] Nucleated erythrocytes [Pres ence] in Blood by Automated countOrdered By: Ajit Pettit on 05-04-2023 Nucleated RBC Auto Ql (Bld) 0.1 /100{WBC} 0-0.5 [facility] Platelet mean volume Auto (B ld) [Entitic vol]Ordered By: Ajit Pettit on 05-04-2023 Platelet mean volume (Bld) [Entitic vol] 8.4 fL 6.3-10.7 [facility] Platelets Auto (Bld) [#/Vol] Ordered By: Ajit Pettit on 05-04-2023 Platelets (Bld) [#/Vol] 328 10*3/uL 150-450 [facility] Potassium [Moles/volume] in Serum or PlasmaOrdered By: Ajit Pettit on 05-04-2023 Potassium [Moles/Vol] 5.3 mmol/L 3.5-5.1 [facility] Protein [Mass/volume] in Ser um or PlasmaOrdered By: Ajit Pettit on 05-04-2023 Protein [Mass/Vol] 6.7 g/dL 6.4-8.9 [facility] RBC Auto (Bld) [#/Vol]Ordere d By: Ajit Pettit on 05-04-2023 RBC (Bld) [#/Vol] 4.68 10*6/uL 3.60-5.00 [facility] Serum or plasma albumin/glob ulin mass ratioOrdered By: Ajit Pettit on 05-04-2023 Albumin/Globulin [Mass ratio] 1.9 {ratio} [facility] Serum or plasma anion gap de terminationOrdered By: Ajit Pettit on 05-04-2023 Anion gap [Moles/Vol] 11.8 mmol/L 6.0-15.0 [facility] Serum or plasma high density lipoprotein (HDL) cholesterol measurementOrdered By: Ajit Pettit on 05-04-2023 Cholesterol in HDL [Mass/Vol] 52 mg/dL 23-92 [facility] Comment on above: HDL CHOL ATP-III CLA SSIFICATION Cardiovascular RiskHDL > or equal to 60 mg/dL LOWHDL < 40 mg/dL HIGH Serum or plasma total choles terol/high density lipoprotein (HDL) cholesterol mass ratOrdered By: Ajit Pettit on 05-04-2023 Cholesterol.total/Suellen sterol in HDL [Mass ratio] 3.5 {ratio} <5.0 [facility] Sodium [Moles/volume] in Ser um or PlasmaOrdered By: Ajit Pettit on 05-04-2023 Sodium [Moles/Vol] 135 mmol/L 136-145 [facility] Thyrotropin [Units/volume] i n Serum or PlasmaOrdered By: Ajit Pettit on 05-04-2023 TSH Qn 1.97 m[IU]/L 0.45-5.33 [facility] Transferrin [Mass/volume] in Serum or PlasmaOrdered By: Ajit Pettit on 05-04-2023 Transferrin [Mass/Vol] 340 mg/dL 203-362 [facility] Triglyceride [Mass/volume] i n Serum or PlasmaOrdered By: Ajit Pettit on 05-04-2023 Triglyceride [Mass/Vol] 233 mg/dL 0-149 [facility] Comment on above: TRIG ATP III CLASSIF ICATIONTRIG less than 150 mg/dL NormalTRIG 150-199 mg/dL Borderline highTRIG 200-500 mg/dL High TRIG greater than 500 mg/dL Very highStandard traceable to the Center for Disease Conrtrol and Prevention (CDC) test method. Urea nitrogen [Mass/volume] in Serum or PlasmaOrdered By: Ajit Pettit on 05-04-2023 Urea nitrogen [Mass/Vol] 9 mg/dL 7 [facility] Urine culture routineOrdered By: Ajit Pettit on 05-04-2023 Bacteria identified Cx Nom (U) Strep. agalactiae Grp B [facility] WBC Auto (Bld) [#/Vol]Ordere d By: Ajit Pettit on 05-04-2023 WBC (Bld) [#/Vol] 14.4 10*3/uL 3.8-11.6 [facility] HCG ( test) IA.rapi d Ql (U)Ordered By: Kyler Miramontes on 04-14-2023 HCG ( test) Ql (U) Negative [facility] CBC AUTO DIFFon 02-15-2023 BASO # 0.1 103/ul Normal 0.0-0.1 [facility] Comment on above: Performed By: #### C BC #### [facility] [address] [place] [address] Dr. Vito Grimm Basophils/100 WBC (Bld) 0.5 % Normal 0.2-2.0 [facility] Comment on above: Performed By: #### C BC #### [facility] [address] [place] [address] Dr. Vito Grimm EO # 0.1 103/ul Normal 0.0-0.7 [facility] Comment on above: Performed By: #### C BC #### [facility] [address] [place] [address] Dr. Vito Grimm Eosinophils/100 WBC (Bld) 0.8 % Critically low 0.9-7.0 [facility] Comment on above: Performed By: #### C BC #### [facility] [address] [place] [address] Dr. Vito Grimm Erythrocyte distribution width (RBC) [Ratio] 13.1 % Normal 11.0-15.0 [facility] Comment on above: Performed By: #### C BC #### [facility] [address] [place] [address] Dr. Vito Grimm Hematocrit (Bld) [Volume fraction] 41.2 % Normal 36.0-48.0 [facility] Comment on above: Performed By: #### C BC #### [facility] [address] [place] [address] Dr. Vito Grimm Hemoglobin (Bld) [Mass/Vol] 13.4 g/dL Normal 12.0-16.0 [facility] Comment on above: Performed By: #### C BC #### [facility] [address] [place] [address] Dr. Vito Grimm IG # 0.05 10e3/ul Critically high 0.00-0.03 [facility] Comment on above: Performed By: #### C BC #### [facility] [address] [place] [address] Dr. Vito Grimm IG % 0.4 % Normal 0.0-0.5 [facility] Comment on above: Performed By: #### C BC #### [facility] [address] [place] [address] Dr. Vito Grimm LYMPH # 4.8 103/ul Critically high 1.2-3.8 [facility] Comment on above: Performed By: #### C BC #### [facility] [address] [place] [address] Dr. Vito Grimm Lymphocytes/100 WBC (Bld) 38.8 % Normal 20.5-60.0 [facility] Comment on above: Performed By: #### C BC #### [facility] [address] [place] [address] Dr. Vito Grimm MANUAL DIFF REQ NO Normal [facility] Comment on above: Performed By: #### C BC #### [facility] [address] [place] [address] Dr. Vito Grimm MCH (RBC) [Entitic mass] 29.9 pg Normal 26.7-34.0 [facility] Comment on above: Performed By: #### C BC #### [facility] [address] [place] [address] Dr. Vito Grimm MCHC (RBC) [Mass/Vol] 32.5 g/dL Normal 29.9-35.2 [facility] Comment on above: Performed By: #### C BC #### [facility] [address] [place] [address] Dr. Vito Grimm MCV (RBC) [Entitic vol] 92.0 fL Normal 81.0-99.0 [facility] Comment on above: Performed By: #### C BC #### [facility] [address] [place] [address] Dr. Vito Grimm MONO # 0.9 103/ul Critically high 0.3-0.8 [facility] Comment on above: Performed By: #### C BC #### [facility] [address] [place] [address] Dr. Vito Grimm Monocytes/100 WBC (Bld) 7.4 % Normal 1.7-12.0 [facility] Comment on above: Performed By: #### C BC #### [facility] [address] [place] [address] Dr. Vito Grimm NEUT # 6.5 103/ul Normal 1.4-6.5 [facility] Comment on above: Performed By: #### C BC #### [facility] [address] [place] [address] Dr. Vito Grimm Neutrophils/100 WBC (Bld) 52.1 % Normal 43.0-75.0 [facility] Comment on above: Performed By: #### C BC #### [facility] [address] [place] [address] Dr. Vito Grimm Platelet mean volume (Bld) [Entitic vol] 10.0 fL Normal 9.5-13.5 [facility] Comment on above: Performed By: #### C BC #### [facility] [address] [place] [address] Dr. Vito Grimm PLT 298 103/ul Normal 150-450 [facility] Comment on above: Performed By: #### C BC #### [facility] [address] [place] [address] Dr. Vito Grimm RBC 4.48 106/ul Normal 4.20-5.40 [facility] Comment on above: Performed By: #### C BC #### [facility] [address] [place] [address] Dr. Vito Grimm WBC 12.4 103/ul Critically high 4.0-11.0 [facility] Comment on above: Performed By: #### C BC #### [facility] [address] [place] [address] Dr. Vito Grimm DEPAKENE/ VALPROIC ACIDon DEPAKENE 49.4 ug/ml Critically low 50.0-100.0 [facility] Comment on above: Performed By: #### C MP, HSTROPN #### [facility] [address] [place] [address] Dr. Vito Grimm LACTATE/LACTIC ACIDon 2022 Lactate [Moles/Vol] 2.7 mmol/L Critically high 0.4-2.0 [facility] Comment on above: Performed By: #### L ACT #### [facility] [address] [place] [address] Dr. Vito Grimm PROF CHEM 8 (BAS METB)on Anion gap [Moles/Vol] 17.6 mmol/L Normal Th [facility] Comment on above: Performed By: #### B MP #### [facility] [address] [place] [address] Dr. Vito Grimm Calcium [Mass/Vol] 8.7 mg/dL Normal 8.5-10.1 [facility] Comment on above: Performed By: #### B MP #### [facility] [address] [place] [address] Dr. Vito Grimm Chloride [Moles/Vol] 99 mmol/L Normal 98-107 [facility] Comment on above: Performed By: #### B MP #### [facility] [address] [place] [address] Dr. Vito Grimm CO2 [Moles/Vol] 23.5 mmol/L Normal 21.0-32.0 [facility] Comment on above: Performed By: #### B MP #### [facility] [address] [address] [address] Vito Grimm Creatinine [Mass/Vol] 0.75 mg/dL Normal 0.55-1.02 [facility] Comment on above: Performed By: #### B MP #### [facility] [address] [address] [address] Vito Grimm EGFR-AF TONGAN >60 Normal >=60 [facility] Comment on above: Performed By: #### B MP #### [facility] [address] [address] [address] Vito Grimm EGFR-NON AF TONGAN >60 Normal >=60 [facility] Comment on above: Performed By: #### B MP #### [facility] [address] [place] [address] Dr. Vito Grimm Glucose [Mass/Vol] 273 mg/dL Critically high 74-106 [facility] Comment on above: Performed By: #### B MP #### [facility] [address] [place] [address] Dr. Vito Grimm Potassium [Moles/Vol] 4.1 mmol/L Normal 3.5-5.1 [facility] Comment on above: Performed By: #### B MP #### [facility] [address] [place] [address] Dr. Vito Grimm Sodium [Moles/Vol] 136 mmol/L Normal 136-145 [facility] Comment on above: Performed By: #### B MP #### [facility] [address] [place] [address] Dr. Vito Grimm Urea nitrogen [Mass/Vol] 6.0 mg/dL Critically low 7.0-18.0 [facility] Comment on above: Performed By: #### B MP #### [facility] [address] [place] [address] Dr. Vito Grimm Urea nitrogen/Creatinine [Mass ratio] 8.0 mg/mg Normal [facility] Comment on above: Performed By: #### B MP #### [facility] [address] [place] [address] Dr. Vito Grimm Alanine aminotransferase [En zymatic activity/volume] in Serum or PlasmaOrdered By: Ajit Pettit on 02-09-2023 ALT [Catalytic activity/Vol] 29 U/L 7-52 [facility] Albumin [Mass/volume] in Ser um or Plasma by Bromocresol green (BCG) dye binding methoOrdered By: Ajit Pettit on 02-09-2023 Albumin BCG dye [Mass/Vol] 4.4 g/dL 3.5-5.7 [facility] Alkaline phosphatase [Enzyma tic activity/volume] in Serum or PlasmaOrdered By: Ajit Pettit on 02-09-2023 ALP [Catalytic activity/Vol] 72 U/L 34-104 [facility] Aspartate aminotransferase [ Enzymatic activity/volume] in Serum or PlasmaOrdered By: Ajit Pettit on 02-09-2023 AST [Catalytic activity/Vol] 27 U/L 13-39 [facility] Basophils Auto (Bld) [#/Vol] Ordered By: Ajit Pettit on 02-09-2023 Basophils (Bld) [#/Vol] 0.1 10*3/uL 0.0-0.2 [facility] Basophils/100 WBC Auto (Bld) Ordered By: Ajit Pettit on 02-09-2023 Basophils/100 WBC (Bld) 0.6 % . [facility] Bilirubin.total [Mass/volume ] in Serum or PlasmaOrdered By: Ajit Pettit on 02-09-2023 Bilirubin [Mass/Vol] 0.3 mg/dL 0.3-1.0 [facility] Calcium [Mass/volume] in Ser um or PlasmaOrdered By: Ajit Pettit on 02-09-2023 Calcium [Mass/Vol] 9.3 mg/dL 8.6-10.3 [facility] Carbon dioxide, total [Moles /volume] in Serum or PlasmaOrdered By: Ajit Pettit on 02-09-2023 CO2 [Moles/Vol] 23.8 mmol/L 21.0-31.0 [facility] Chloride [Moles/volume] in S alissa or PlasmaOrdered By: Ajit Pettit on 02-09-2023 Chloride [Moles/Vol] 101 mmol/L 98-107 [facility] Cholesterol [Mass/volume] in Serum or PlasmaOrdered By: Ajit Pettit on 02-09-2023 Cholesterol [Mass/Vol] 166 mg/dL 140-200 [facility] Comment on above: Chol less than 200 m g/dl low riskChol 201-239 mg/dl borderline riskChol 240 mg/dl and greater high risk Cholesterol in LDL Calc [Mas s/Vol]Ordered By: Aijt Pettit on 02-09-2023 Cholesterol in LDL [Mass/Vol] TNP [facility] Comment on above: Test not performed Cholesterol in LDL [Mass/vol ume] in Serum or PlasmaOrdered By: Ajit Pettit on 02-09-2023 Cholesterol in LDL [Mass/Vol] 61 mg/dL 0-100 [facility] Comment on above: LDL ATP III CLASSIFI CATIONLDL less than 100 mg/dL OptimalLDL 100-129 mg/dL Near or above optimalLDL 130-159 mg/dL Borderline highLDL 160-189 mg/dL HighLDL greater than 189 mg/dL Very high Cholesterol in VLDL Calc [Ma ss/Vol]Ordered By: Ajit Pettit on 02-09-2023 Cholesterol in VLDL [Mass/Vol] 97 mg/dL [facility] Creatinine [Mass/volume] in Serum or PlasmaOrdered By: Ajit Pettit on 02-09-2023 Creatinine [Mass/Vol] 0.75 mg/dL 0.60-1.20 [facility] Eosinophils Auto (Bld) [#/Vo l]Ordered By: Ajit Pettit on 02-09-2023 Eosinophils (Bld) [#/Vol] 0.1 10*3/uL 0.0-0.45 [facility] Eosinophils/100 WBC Auto (Bl d)Ordered By: Ajit Pettit on 02-09-2023 Eosinophils/100 WBC (Bld) 0.7 % . [facility] Erythrocyte distribution wid th Auto (RBC) [Ratio]Ordered By: Ajit Pettit on 02-09-2023 Erythrocyte distribution width (RBC) [Ratio] 13.1 % 11.9-15.3 [facility] Globulin Calc (S) [Mass/Vol] Ordered By: Ajit Pettit on 02-09-2023 Globulin (S) [Mass/Vol] 2.3 g/dL [facility] Glucose [Mass/volume] in Ser um or PlasmaOrdered By: Ajit Pettit on 02-09-2023 Glucose [Mass/Vol] 286 mg/dL 70-100 [facility] [facility] Comment on above: ADA recommended refe rence rangeRandom Glucose Reference Range is dependent on time and content of last meal. Glucose of more than 200 mg/dL in a nonstressed, ambulatory subject supports the diagnosis of Diabetes Mellitus. Hematocrit Auto (Bld) [Volum e fraction]Ordered By: Ajit Pettit on 02-09-2023 Hematocrit (Bld) [Volume fraction] 39.7 % 34.0-46.4 [facility] Hemoglobin [Mass/volume] in BloodOrdered By: Ajit Pettit on 02-09-2023 Hemoglobin (Bld) [Mass/Vol] 13.1 g/dL 11.8-15.4 [facility] Leukocytes [#/volume] correc cherie for nucleated erythrocytes in Blood by Automated counOrdered By: Ajit Pettit on 02-09-2023 WBC corrected for nucl RBC Auto (Bld) [#/Vol] 13.2 10*3/uL 3.8-11.6 [facility] Lymphocytes Auto (Bld) [#/Vo l]Ordered By: Ajit Pettit on 02-09-2023 Lymphocytes (Bld) [#/Vol] 3.6 10*3/uL 1.00-4.8 [facility] Lymphocytes/100 WBC Auto (Bl d)Ordered By: Ajit Pettit on 02-09-2023 Lymphocytes/100 WBC (Bld) 27.3 % . [facility] MCH Auto (RBC) [Entitic mass ]Ordered By: Ajit Pettit on 02-09-2023 MCH (RBC) [Entitic mass] 29.5 pg 24.7-34.3 [facility] MCHC Auto (RBC) [Mass/Vol]Or dered By: Ajit Pettit on 02-09-2023 MCHC (RBC) [Mass/Vol] 33.1 g/dL 32.0-35.0 [facility] MCV Auto (RBC) [Entitic vol] Ordered By: Ajit Pettit on 02-09-2023 MCV (RBC) [Entitic vol] 89.3 fL 80-100 [facility] Monocytes Auto (Bld) [#/Vol] Ordered By: Ajit Pettit on 02-09-2023 Monocytes (Bld) [#/Vol] 0.9 10*3/uL 0.0-0.8 [facility] Monocytes/100 WBC Auto (Bld) Ordered By: Ajit Pettit on 02-09-2023 Monocytes/100 WBC (Bld) 7.0 % . [facility] Neutrophils Auto (Bld) [#/Vo l]Ordered By: Ajit Pettit on 02-09-2023 Neutrophils (Bld) [#/Vol] 8.5 10*3/uL 1.8-7.7 [facility] Neutrophils/100 WBC Auto (Bl d)Ordered By: Ajit Pettit on 02-09-2023 Neutrophils/100 WBC (Bld) 64.4 % . [facility] No Panel InformationOrdered By: Ajit Pettit on 02-09-2023 Estimated GFR (CKD-EPI) > 60.0 mL/Min [facility] Creatinine Clearance (Chem N/A [facility] Nucleated erythrocytes [Pres ence] in Blood by Automated countOrdered By: Ajit Pettit on 02-09-2023 Nucleated RBC Auto Ql (Bld) 0.0 /100{WBC} 0-0.5 [facility] Platelet mean volume Auto (B ld) [Entitic vol]Ordered By: Ajit Pettit on 02-09-2023 Platelet mean volume (Bld) [Entitic vol] 8.8 fL 6.3-10.7 [facility] Platelets Auto (Bld) [#/Vol] Ordered By: Ajit Pettit on 02-09-2023 Platelets (Bld) [#/Vol] 295 10*3/uL 150-450 [facility] Potassium [Moles/volume] in Serum or PlasmaOrdered By: Ajit Pettit on 02-09-2023 Potassium [Moles/Vol] 4.5 mmol/L 3.5-5.1 [facility] Protein [Mass/volume] in Ser um or PlasmaOrdered By: Ajit Pettit on 02-09-2023 Protein [Mass/Vol] 6.7 g/dL 6.4-8.9 [facility] RBC Auto (Bld) [#/Vol]Ordere d By: Ajit Pettit on 02-09-2023 RBC (Bld) [#/Vol] 4.44 10*6/uL 3.60-5.00 [facility] Serum or plasma albumin/glob ulin mass ratioOrdered By: Ajit Pettit on 02-09-2023 Albumin/Globulin [Mass ratio] 1.9 {ratio} [facility] Serum or plasma anion gap de terminationOrdered By: Ajit Pettit on 02-09-2023 Anion gap [Moles/Vol] 15.7 mmol/L 6.0-15.0 [facility] Serum or plasma high density lipoprotein (HDL) cholesterol measurementOrdered By: Ajit Pettit on 02-09-2023 Cholesterol in HDL [Mass/Vol] 41 mg/dL 35-85 [facility] Comment on above: HDL CHOL ATP-III CLA SSIFICATION Cardiovascular RiskHDL > or equal to 60 mg/dL LOWHDL < 40 mg/dL HIGH Serum or plasma total choles terol/high density lipoprotein (HDL) cholesterol mass ratOrdered By: Ajit Pettit on 02-09-2023 Cholesterol.total/Suellen sterol in HDL [Mass ratio] 4.0 {ratio} <5.0 [facility] Sodium [Moles/volume] in Ser um or PlasmaOrdered By: Ajit Pettit on 02-09-2023 Sodium [Moles/Vol] 136 mmol/L 136-145 [facility] Thyrotropin [Units/volume] i n Serum or PlasmaOrdered By: Ajit Pettit on 02-09-2023 TSH Qn 2.98 m[IU]/L 0.45-5.33 [facility] Triglyceride [Mass/volume] i n Serum or PlasmaOrdered By: Ajit Pettit on 02-09-2023 Triglyceride [Mass/Vol] 485 mg/dL 0-149 [facility] Comment on above: If the triglyceride [...] 02-09-2023 Urea nitrogen [Mass/Vol] 10 mg/dL 04-27 [facility] Urine culture routineOrdered By: Ajit Pettit on 02-09-2023 Bacteria identified Cx Nom (U) 2 Days [facility] WBC Auto (Bld) [#/Vol]Ordere d By: Ajit Pettit on 02-09-2023 WBC (Bld) [#/Vol] 13.2 10*3/uL 3.8-11.6 [facility] ACETONE SERUMon 01-29-2023 ACETONE Negative Normal NEGATIVE [facility] Comment on above: Performed By: #### A CETON #### [facility] [address] [place] [address] Dr. Vito Grimm CBC AUTO DIFFon 01-29-2023 BASO # 0.1 103/ul Normal 0.0-0.1 [facility] Comment on above: Performed By: #### C BC #### [facility] [address] [place] [address] Dr. Vito Grimm Basophils/100 WBC (Bld) 0.5 % Normal 0.2-2.0 [facility] Comment on above: Performed By: #### C BC #### [facility] [address] [place] [address] Dr. Vito Grimm EO # 0.1 103/ul Normal 0.0-0.7 [facility] Comment on above: Performed By: #### C BC #### [facility] [address] [place] [address] Dr. Vito Grimm Eosinophils/100 WBC (Bld) 0.7 % Critically low 0.9-7.0 [facility] Comment on above: Performed By: #### C BC #### [facility] [address] [place] [address] Dr. Vito Grimm Erythrocyte distribution width (RBC) [Ratio] 12.9 % Normal 11.0-15.0 [facility] Comment on above: Performed By: #### C BC #### [facility] [address] [place] [address] Dr. Vito Grimm Hematocrit (Bld) [Volume fraction] 39.0 % Normal 36.0-48.0 [facility] Comment on above: Performed By: #### C BC #### [facility] [address] [place] [address] Dr. Vito Grimm Hemoglobin (Bld) [Mass/Vol] 13.1 g/dL Normal 12.0-16.0 [facility] Comment on above: Performed By: #### C BC #### [facility] [address] [place] [address] Dr. Vito Grimm IG # 0.11 10e3/ul Critically high 0.00-0.03 [facility] Comment on above: Performed By: #### C BC #### [facility] [address] [place] [address] Dr. Vito Grimm IG % 0.8 % Critically high 0.0-0.5 [facility] Comment on above: Performed By: #### C BC #### [facility] [address] [place] [address] Dr. Vito Grimm LYMPH # 4.6 103/ul Critically high 1.2-3.8 [facility] Comment on above: Performed By: #### C BC #### [facility] [address] [place] [address] Dr. Vito Grimm Lymphocytes/100 WBC (Bld) 34.4 % Normal 20.5-60.0 [facility] Comment on above: Performed By: #### C BC #### [facility] [address] [place] [address] Dr. Vito Grimm MANUAL DIFF REQ NO Normal [facility] Comment on above: Performed By: #### C BC #### [facility] [address] [place] [address] Dr. Vito Grimm MCH (RBC) [Entitic mass] 29.9 pg Normal 26.7-34.0 [facility] Comment on above: Performed By: #### C BC #### [facility] [address] [place] [address] Dr. Vito Grimm MCHC (RBC) [Mass/Vol] 33.6 g/dL Normal 29.9-35.2 [facility] Comment on above: Performed By: #### C BC #### [facility] [address] [place] [address] Dr. Vito Grimm MCV (RBC) [Entitic vol] 89.0 fL Normal 81.0-99.0 [facility] Comment on above: Performed By: #### C BC #### [facility] [address] [place] [address] Dr. Vito Grimm MONO # 1.0 103/ul Critically high 0.3-0.8 [facility] Comment on above: Performed By: #### C BC #### [facility] [address] [place] [address] Dr. Vito Grimm Monocytes/100 WBC (Bld) 7.3 % Normal 1.7-12.0 [facility] Comment on above: Performed By: #### C BC #### [facility] [address] [place] [address] Dr. Vito Grimm NEUT # 7.5 103/ul Critically high 1.4-6.5 [facility] Comment on above: Performed By: #### C BC #### [facility] [address] [place] [address] Dr. Vito Grimm Neutrophils/100 WBC (Bld) 56.3 % Normal 43.0-75.0 [facility] Comment on above: Performed By: #### C BC #### [facility] [address] [place] [address] Dr. Vito Grimm Platelet mean volume (Bld) [Entitic vol] 9.6 fL Normal 9.5-13.5 [facility] Comment on above: Performed By: #### C BC #### [facility] [address] [place] [address] Dr. Vito Grimm PLT 272 103/ul Normal 150-450 [facility] Comment on above: Performed By: #### C BC #### [facility] [address] [place] [address] Dr. Vito Grimm RBC 4.38 106/ul Normal 4.20-5.40 [facility] Comment on above: Performed By: #### C BC #### [facility] [address] [place] [address] Dr. Vito Grimm WBC 13.4 103/ul Critically high 4.0-11.0 [facility] Comment on above: Performed By: #### C BC #### [facility] [address] [place] [address] Dr. Vito Grimm ER URINE PROFILEon 3 Bilirubin Ql (U) Negative Normal NEGATIVE [facility] Comment on above: Performed By: #### E RUR #### [facility] [address] [place] [address] Dr. Vito Grimm Clarity (U) SL CLOUDY Abnormal CLEAR [facility] Comment on above: Performed By: #### E RUR #### [facility] [address] [place] [address] Dr. Vito Grimm Color (U) LT. YELLOW Normal YELLOW [facility] Comment on above: Performed By: #### E RUR #### [facility] [address] [place] [address] Dr. Vito Grimm ERUAHD A micrscopic examina tion will be performed if indicated. Normal [facility] Comment on above: Performed By: #### E RUR #### [facility] [address] [place] [address] Dr. Vito Grimm Glucose Ql (U) >1000 Abnormal NEGATIVE [facility] Comment on above: Performed By: #### E RUR #### [facility] [address] [place] [address] Dr. Vito Grimm Hemoglobin Ql (U) Negative Normal NEGATIVE [facility] Comment on above: Performed By: #### E RUR #### [facility] [address] [place] [address] Dr. Vito Grimm Ketones Ql (U) Negative Normal NEGATIVE [facility] Comment on above: Performed By: #### E RUR #### [facility] [address] [place] [address] Dr. Vito Grimm LEUKOCYTES Negative Normal NEGATIVE [facility] Comment on above: Performed By: #### E RUR #### [facility] [address] [place] [address] Dr. Vito Grimm Nitrite Ql (U) Negative Normal NEGATIVE [facility] Comment on above: Performed By: #### E RUR #### [facility] [address] [place] [address] Dr. Vito Grimm pH (U) 5.5 [pH] Normal 5-9 [facility] Comment on above: Performed By: #### E RUR #### [facility] [address] [place] [address] Dr. Vito Grimm SPEC GRAVITY 1.010 Normal 1.005-<=1. 025 [facility] Comment on above: Performed By: #### E RUR #### [facility] [address] [place] [address] Dr. Vito Grimm UA PROTEIN Negative Normal NEGATIVE/ TRACE [facility] Comment on above: Performed By: #### E RUR #### [facility] [address] [place] [address] Dr. Vito Grimm UR MICRO IND NOT INDICATED Normal [facility] Comment on above: Performed By: #### E RUR #### [facility] [address] [place] [address] Dr. Vito Grimm Urobilinogen Qn (U) 0.2 {Helen'U}/dL Normal 0.2 - 1. 0 [facility] Comment on above: Performed By: #### E RUR #### [facility] [address] [place] [address] Dr. Vito Grimm POINT OF CARE GLUCOSEon 01-03 Glucose [Mass/Vol] 279 mg/dL Critically high 74-106 [facility] Comment on above: Performed By: #### P OCGLUC #### [facility] [address] [place] [address] Dr. Vito Grimm PROF 14(COMP METB)on 023 Albumin [Mass/Vol] 3.5 g/dL Normal 3.4-5.0 [facility] Comment on above: Performed By: #### C MP, HSTROPN #### [facility] [address] [place] [address] Dr. Vito Grimm Albumin/Globulin [Mass ratio] 1.0 {ratio} Normal [facility] Comment on above: Performed By: #### C MP, HSTROPN #### [facility] [address] [place] [address] Dr. Vito Grimm ALP [Catalytic activity/Vol] 85 U/L Normal 46-116 [facility] Comment on above: Performed By: #### C MP, HSTROPN #### [facility] [address] [place] [address] Dr. Vito Grimm ALT [Catalytic activity/Vol] 28 U/L Normal 14-59 [facility] Comment on above: Performed By: #### C MP, HSTROPN #### [facility] [address] [place] [address] Dr. Vito Grimm Anion gap [Moles/Vol] 15.9 mmol/L Normal [facility] Comment on above: Performed By: #### C MP, HSTROPN #### [facility] [address] [place] [address] Dr. Vito Grimm AST [Catalytic activity/Vol] 16 U/L Normal 15-37 [facility] Comment on above: Performed By: #### C MP, HSTROPN #### [facility] [address] [address] [address] Vito Grimm Bilirubin [Mass/Vol] 0.2 mg/dL Normal 0.2-1.0 [facility] Comment on above: Performed By: #### C MP, HSTROPN #### [facility] [address] [address] [address] Vito Grimm Calcium [Mass/Vol] 8.8 mg/dL Normal 8.5-10.1 [facility] Comment on above: Performed By: #### C MP, HSTROPN #### [facility] [address] [address] [address] Vito Grimm Chloride [Moles/Vol] 96 mmol/L Critically low 98-107 [facility] Comment on above: Performed By: #### C MP, HSTROPN #### [facility] [address] [address] [address] Vito Grimm CO2 [Moles/Vol] 24.1 mmol/L Normal 21.0-32.0 [facility] Comment on above: Performed By: #### C MP, HSTROPN #### [facility] [address] [address] [address] Vito Grimm Creatinine [Mass/Vol] 0.85 mg/dL Normal 0.55-1.02 [facility] Comment on above: Performed By: #### C MP, HSTROPN #### [facility] [address] [place] [address] Dr. Vito Grimm EGFR-AF TONGAN >60 Normal >=60 [facility] Comment on above: Performed By: #### C MP, HSTROPN #### [facility] [address] [place] [address] Dr. Vito Grimm EGFR-NON AF TONGAN >60 Normal >=60 [facility] Comment on above: Performed By: #### C MP, HSTROPN #### [facility] [address] [address] [address] Vito Grimm Globulin (S) [Mass/Vol] 3.6 g/dL Normal [facility] Comment on above: Performed By: #### C MP, HSTROPN #### [facility] [address] [address] [address] Vito Grimm Glucose [Mass/Vol] 350 mg/dL Critically high 74-106 [facility] Comment on above: Performed By: #### C MP, HSTROPN #### [facility] [address] [place] [address] Dr. Vito Grimm Potassium [Moles/Vol] 4.0 mmol/L Normal 3.5-5.1 [facility] Comment on above: Performed By: #### C MP, HSTROPN #### [facility] [address] [place] [address] Dr. Vito Grimm Protein [Mass/Vol] 7.1 g/dL Normal 6.4-8.2 [facility] Comment on above: Performed By: #### C MP, HSTROPN #### [facility] [address] [place] [address] Dr. Vito Grimm Sodium [Moles/Vol] 132 mmol/L Critically low 136-145 [facility] Comment on above: Performed By: #### C MP, HSTROPN #### [facility] [address] [place] [address] Dr. Vito Grimm Urea nitrogen [Mass/Vol] 10.0 mg/dL Normal 7.0-18.0 [facility] Comment on above: Performed By: #### C MP, HSTROPN #### [facility] [address] [place] [address] Dr. Vito Grimm Urea nitrogen/Creatinine [Mass ratio] 11.8 mg/mg Normal [facility] Comment on above: Performed By: #### C MP, HSTROPN #### [facility] [address] [place] [address] Dr. Vito Grimm TROPONIN, HIGH SENSITIVITYon 01-29-2023 HSTROP <4.0 Normal 4.0-51.3 [facility] Comment on above: Result Comment: CUT- OFF POINTS HAVE BEEN ESTABLISHED BASED ON THE FOURTH UNIVERSAL DEFINITIONS OF MYOCARDIAL INFARCTION. THE UPPER REFERENCE LIMIT (URL) OF TROPONIN, DEFINED THE 99TH PERCENTILE OF cTnI DISTRIBUTION IN A REFERENCE POPULATION, HAS BEEN CONFIRMED THE DECISION THRESHOLD FOR [place] DIAGNOSIS. Performed By: #### C MP, HSTROPN #### [facility] [address] [place] [address] Dr. Vito Grimm HCG ( test) IAanil d Ql (U)Ordered By: Kyler Miramontes on 11-18-2022 HCG ( test) Ql (U) Negative [facility] CBC AUTO DIFFon 11-12-2022 BASO # 0.1 103/ul Normal 0.0-0.1 [facility] Comment on above: Performed By: #### C MP, HSTROPN #### [facility] [address] [place] [address] Dr. Vito Grimm Basophils/100 WBC (Bld) 0.6 % Normal 0.2-2.0 [facility] Comment on above: Performed By: #### C MP, HSTROPN #### [facility] [address] [place] [address] Dr. Vito Grimm EO # 0.2 103/ul Normal 0.0-0.7 [facility] Comment on above: Performed By: #### C MP, HSTROPN #### [facility] [address] [place] [address] Dr. Vito Grimm Eosinophils/100 WBC (Bld) 1.1 % Normal 0.9-7.0 [facility] Comment on above: Performed By: #### C MP, HSTROPN #### [facility] [address] [place] [address] Dr. Vito Grimm Erythrocyte distribution width (RBC) [Ratio] 12.6 % Normal 11.0-15.0 [facility] Comment on above: Performed By: #### C MP, HSTROPN #### [facility] [address] [place] [address] Dr. Vito Grimm Hematocrit (Bld) [Volume fraction] 39.7 % Normal 36.0-48.0 [facility] Comment on above: Performed By: #### C MP, HSTROPN #### [facility] [address] [place] [address] Dr. Vito Grimm Hemoglobin (Bld) [Mass/Vol] 12.9 g/dL Normal 12.0-16.0 [facility] Comment on above: Performed By: #### C MP, HSTROPN #### [facility] [address] [place] [address] Dr. Vito Grimm IG # 0.07 10e3/ul Critically high 0.00-0.03 [facility] Comment on above: Performed By: #### C MP, HSTROPN #### [facility] [address] [place] [address] Dr. Vito Grimm IG % 0.5 % Normal 0.0-0.5 [facility] Comment on above: Performed By: #### C MP, HSTROPN #### [facility] [address] [place] [address] Dr. Vito Grimm LYMPH # 5.3 103/ul Critically high 1.2-3.8 [facility] Comment on above: Performed By: #### C MP, HSTROPN #### [facility] [address] [place] [address] Dr. Vito Grimm Lymphocytes/100 WBC (Bld) 38.4 % Normal 20.5-60.0 [facility] Comment on above: Performed By: #### C MP, HSTROPN #### [facility] [address] [place] [address] Dr. Vito Grimm MANUAL DIFF REQ NO Normal [facility] Comment on above: Performed By: #### C MATHIEU, HSTROPN #### [facility] [address] [place] [address] Dr. Vito Grimm MCH (RBC) [Entitic mass] 29.7 pg Normal 26.7-34.0 [facility] Comment on above: Performed By: #### C MP, HSTROPN #### [facility] [address] [place] [address] Dr. Vito Grimm MCHC (RBC) [Mass/Vol] 32.5 g/dL Normal 29.9-35.2 [facility] Comment on above: Performed By: #### C MP, HSTROPN #### [facility] [address] [place] [address] Dr. Vito Grimm MCV (RBC) [Entitic vol] 91.5 fL Normal 81.0-99.0 [facility] Comment on above: Performed By: #### C MP, HSTROPN #### [facility] [address] [place] [address] Dr. Vito Grimm MONO # 1.0 103/ul Critically high 0.3-0.8 [facility] Comment on above: Performed By: #### C MP, HSTROPN #### [facility] [address] [place] [address] Dr. Vito Grimm Monocytes/100 WBC (Bld) 7.3 % Normal 1.7-12.0 [facility] Comment on above: Performed By: #### C MP, HSTROPN #### [facility] [address] [place] [address] Dr. Vito Grimm NEUT # 7.2 103/ul Critically high 1.4-6.5 [facility] Comment on above: Performed By: #### C MP, HSTROPN #### [facility] [address] [place] [address] Dr. Vito Grimm Neutrophils/100 WBC (Bld) 52.1 % Normal 43.0-75.0 [facility] Comment on above: Performed By: #### C MP, HSTROPN #### [facility] [address] [place] [address] Dr. Vito Grimm Platelet mean volume (Bld) [Entitic vol] 9.4 fL Critically low 9.5-13.5 [facility] [place] Comment on above: Performed By: #### C MP, HSTROPN #### [facility] [address] [place] [address] Dr. Vito Grimm PLT 297 103/ul Normal 150-450 [facility] [place] Comment on above: Performed By: #### C MP, HSTROPN #### [facility] [address] [place] [address] Dr. Vito Grimm RBC 4.34 106/ul Normal 4.20-5.40 [facility] [place] Comment on above: Performed By: #### C MP, HSTROPN #### [facility] [address] [place] [address] Dr. iVto Grimm WBC 13.9 103/ul Critically high 4.0-11.0 [facility] Comment on above: Performed By: #### C MP, HSTROPN #### [facility] [address] [place] [address] Dr. Vito Grimm DEPAKENE/ VALPROIC ACIDon DEPAKENE 55.9 ug/ml Normal 50.0-100.0 [facility] [place] Comment on above: Performed By: #### V ALP #### [facility] [address] [place] [address] Dr. Vito Grimm LACTATE/LACTIC ACIDon 2022 Lactate [Moles/Vol] 3.6 mmol/L Critically high 0.4-1.9 [facility] Comment on above: Performed By: #### C MATHIEU, HSTROPN #### [facility] [address] [place] [address] Dr. Vito Grimm PROF 14(COMP METB)on 023 Albumin [Mass/Vol] 3.6 g/dL Normal 3.4-5.0 [facility] [place] Comment on above: Performed By: #### C MATHIEU, HSTROPN #### [facility] [address] [place] [address] Dr. Vito Grimm Albumin/Globulin [Mass ratio] 1.1 {ratio} Normal [facility] Comment on above: Performed By: #### C MATHIEU, HSTROPN #### [facility] [address] [place] [address] Dr. Vito Grimm ALP [Catalytic activity/Vol] 57 U/L Normal 46-116 [facility] Comment on above: Performed By: #### C MATHIEU, HSTROPN #### [facility] [address] [place] [address] Dr. Vito Grimm ALT [Catalytic activity/Vol] 23 U/L Normal 14-59 [facility] Comment on above: Performed By: #### C MATHIEU, HSTROPN #### [facility] [address] [address] [address] Vito Grimm Anion gap [Moles/Vol] 17.0 mmol/L Normal [facility] Comment on above: Performed By: #### C MP, HSTROPN #### [facility] [address] [address] [address] Vito Grimm AST [Catalytic activity/Vol] 16 U/L Normal 15-37 [facility] Comment on above: Performed By: #### C MP, HSTROPN #### [facility] [address] [address] [address] Vito Grimm Bilirubin [Mass/Vol] 0.1 mg/dL Critically low 0.2-1.0 [facility] [place] Comment on above: Performed By: #### C MP, HSTROPN #### [facility] [address] [address] [address] Vito Grimm Calcium [Mass/Vol] 8.8 mg/dL Normal 8.5-10.1 [facility] [place] Comment on above: Performed By: #### C MP, HSTROPN #### [facility] [address] [address] [address] Vito Grimm Chloride [Moles/Vol] 101 mmol/L Normal 98-107 [facility] Comment on above: Performed By: #### C MP, HSTROPN #### [facility] [address] [address] [address] Vito Grimm CO2 [Moles/Vol] 23.5 mmol/L Normal 21.0-32.0 [facility] Comment on above: Performed By: #### C MP, HSTROPN #### [facility] [address] [address] [address] Vito Grimm Creatinine [Mass/Vol] 0.72 mg/dL Normal 0.55-1.02 [facility] Comment on above: Performed By: #### C MP, HSTROPN #### [facility] [address] [address] [address] Vito Grimm EGFR-AF TONGAN >60 Normal >=60 [facility] Comment on above: Performed By: #### C MP, HSTROPN #### [facility] [address] [address] [address] Vito Grimm EGFR-NON AF TONGAN >60 Normal >=60 [facility] [place] Comment on above: Performed By: #### C MP, HSTROPN #### [facility] [address] [place] [address] Dr. Vito Grimm Globulin (S) [Mass/Vol] 3.4 g/dL Normal [facility] Comment on above: Performed By: #### C MP, HSTROPN #### [facility] [address] [place] [address] Dr. Vito Grimm Glucose [Mass/Vol] 146 mg/dL Critically high 74-106 [facility] Comment on above: Performed By: #### C MP, HSTROPN #### [facility] [address] [place] [address] Dr. Vito Grimm Potassium [Moles/Vol] 4.5 mmol/L Normal 3.5-5.1 [facility] [place] Comment on above: Performed By: #### C MP, HSTROPN #### [facility] [address] [place] [address] Dr. Vito Grimm Protein [Mass/Vol] 7.0 g/dL Normal 6.4-8.2 [facility] [place] Comment on above: Performed By: #### C MP, HSTROPN #### [facility] [address] [place] [address] Dr. Vito Grimm Sodium [Moles/Vol] 137 mmol/L Normal 136-145 [facility] [place] Comment on above: Performed By: #### C MP, HSTROPN #### [facility] [address] [place] [address] Dr. Vito Grimm Urea nitrogen [Mass/Vol] 11.0 mg/dL Normal 7.0-18.0 [facility] [place] Comment on above: Performed By: #### C MP, HSTROPN #### [facility] [address] [place] [address] Dr. Vito Grimm Urea nitrogen/Creatinine [Mass ratio] 15.3 mg/mg Normal [facility] Comment on above: Performed By: #### C MP, HSTROPN #### [facility] [address] [address] [address] Vito Grimm Albumin [Mass/volume] in Ser um or PlasmaOrdered By: Ajit Pettit on 11-05-2022 Albumin [Mass/Vol] 4.2 g/dL 3.2-5.5 [facility] Basophils Auto (Bld) [#/Vol] Ordered By: Ajit Pettit on 11-05-2022 Basophils (Bld) [#/Vol] 0.1 10*3/uL 0.0-0.2 [facility] Basophils/100 WBC Auto (Bld) Ordered By: Ajit Pettit on 11-05-2022 Basophils/100 WBC (Bld) 0.8 % . [facility] Cholesterol [Mass/volume] in Serum or PlasmaOrdered By: Ajit Pettit on 11-05-2022 Cholesterol [Mass/Vol] 174 mg/dL 140-200 [facility] Comment on above: Chol less than 200 m g/dl low riskChol 201-239 mg/dl borderline riskChol 240 mg/dl and greater high risk Cholesterol in LDL Calc [Mas s/Vol]Ordered By: Ajit Pettit on 11-05-2022 Cholesterol in LDL [Mass/Vol] 66 mg/dL 0-100 [facility] Comment on above: LDL ATP III CLASSIFI CATIONLDL less than 100 mg/dL OptimalLDL 100-129 mg/dL Near or above optimalLDL 130-159 mg/dL Borderline highLDL 160-189 mg/dL HighLDL greater than 189 mg/dL Very high Cholesterol in VLDL Calc [Ma ss/Vol]Ordered By: Ajit Pettit on 11-05-2022 Cholesterol in VLDL [Mass/Vol] 66 mg/dL [facility] Creatinine and Glomerular fi ltration rate.predicted panel (S/P/Bld)Ordered By: Ajit Pettit on 11-05-2022 Creatinine [Mass/Vol] 0.57 mg/dL 0.44-1.03 [facility] Eosinophils Auto (Bld) [#/Vo l]Ordered By: Ajit Pettit on 11-05-2022 Eosinophils (Bld) [#/Vol] 0.1 10*3/uL 0.0-0.45 [facility] Eosinophils/100 WBC Auto (Bl d)Ordered By: Ajit Pettit on 11-05-2022 Eosinophils/100 WBC (Bld) 0.7 % . [facility] Erythrocyte distribution wid th Auto (RBC) [Ratio]Ordered By: Ajit Pettit on 11-05-2022 Erythrocyte distribution width (RBC) [Ratio] 13.5 % 11.9-15.3 [facility] Estimated glomerular filtrat ion rate (GFR) non- AmericanOrdered By: Ajit Pettit on 11-05-2022 GFR/1.73 sq M.predicted among non-blacks MDRD (S/P/Bld) [Vol rate/Area] > 60 mL/Min [facility] Globulin Calc (S) [Mass/Vol] Ordered By: Ajit Pettit on 11-05-2022 Globulin (S) [Mass/Vol] 2.6 g/dL [facility] Glucose mean value [Mass/vol ume] in Blood Estimated from glycated hemoglobinOrdered By: Ajit Pettit on 11-05-2022 Average glucose Estimated from glycated hemoglobin (Bld) [Mass/Vol] 143 mg/dL [facility] HPV 16+18+31+33+35+39+45+51+ 52+56+58+59+68 DNA cervix probe + signal amplificOrdered By: Ajit Pettit on 11-05-2022 HPV 16+18+31+33+35+39+45+51 +52+56+58+59+68 DNA Probe+sig amp Ql (Cvx) Positive Negative [facility] Comment on above: This nucleic acid am plification test detects fourteen high-risk HPV types (16,18,31,33,35,39,45,51,52,56,58,59,66,68)without differentiation. Hematocrit Auto (Bld) [Volum e fraction]Ordered By: Ajit Pettit on 11-05-2022 Hematocrit (Bld) [Volume fraction] 40.1 % 34.0-46.4 [facility] Hemoglobin A1c percentageOrd ered By: Ajit Pettit on 11-05-2022 HbA1c (Bld) [Mass fraction] 6.6 % 4.3-5.6 [facility] Comment on above: Increased risk for d iabetes: 5.7 - 6.4diabetes: >6.4glycemic control for adults with diabetes: <7.0 Hemoglobin [Mass/volume] in BloodOrdered By: Ajit Pettit on 11-05-2022 Hemoglobin (Bld) [Mass/Vol] 13.2 g/dL 11.8-15.4 [facility] - Microbiology an d Antimicrobial susceptibilityOrdered By: Ajit Pettit on 11-05-2022 N. gonorrhoeae DNA NAYELY+probe Ql (Unsp spec) Negative Negative [facility] Comment on above: Performed at: [address] [id number] Director: Breanna Clark MD, Phone: [phone] Leukocytes [#/volume] correc cherie for nucleated erythrocytes in Blood by Automated counOrdered By: Ajit Pettit on 11-05-2022 WBC corrected for nucl RBC Auto (Bld) [#/Vol] 13.7 10*3/uL 3.8-11.6 [facility] Lymphocytes Auto (Bld) [#/Vo l]Ordered By: Ajit Pettit on 11-05-2022 Lymphocytes (Bld) [#/Vol] 5.1 10*3/uL 1.00-4.8 [facility] Lymphocytes/100 WBC Auto (Bl d)Ordered By: Ajit Pettit on 11-05-2022 Lymphocytes/100 WBC (Bld) 37.3 % . [facility] MCH Auto (RBC) [Entitic mass ]Ordered By: Ajit Pettit on 11-05-2022 MCH (RBC) [Entitic mass] 29.5 pg 24.7-34.3 [facility] MCHC Auto (RBC) [Mass/Vol]Or dered By: Ajit Pettit on 11-05-2022 MCHC (RBC) [Mass/Vol] 32.8 g/dL 32.0-35.0 [facility] MCV Auto (RBC) [Entitic vol] Ordered By: Ajit Pettit on 11-05-2022 MCV (RBC) [Entitic vol] 90.0 fL 80-100 [facility] Microcytes LM Ql (Bld)Ordere d By: Ajit Pettit on 11-05-2022 Microcytes Ql (Bld) Slight [facility] Monocytes Auto (Bld) [#/Vol] Ordered By: Ajit Pettit on 11-05-2022 Monocytes (Bld) [#/Vol] 1.1 10*3/uL 0.0-0.8 [facility] Monocytes/100 WBC Auto (Bld) Ordered By: Ajit Pettit on 11-05-2022 Monocytes/100 WBC (Bld) 8.3 % . [facility] Neutrophils Auto (Bld) [#/Vo l]Ordered By: Ajit Pettit on 11-05-2022 Neutrophils (Bld) [#/Vol] 7.3 10*3/uL 1.8-7.7 [facility] Neutrophils/100 WBC Auto (Bl d)Ordered By: Ajit Pettit on 11-05-2022 Neutrophils/100 WBC (Bld) 52.9 % . [facility] No Panel InformationOrdered By: Ajit Pettit on 11-05-2022 25-Hydroxy Vitamin D Total 28.8 ng/mL 30-100 [facility] Comment on above: VITAMIN D STATUS 25( OH)VITAMIN D RANGE (ng/mL) Deficient <20 Insufficient 20 to <30Sufficient 30 to 100Reference: Jovanni MF,Dominique NC, Gillian NINA, et al. Evaluation,treatment, and prevention of vitamin D deficiency; an Endocrine Society clinical practice guideline. JCEM. 2010; 96(7):1911-30. Luz Elena albicans (NAYELY) Negative Negative [facility] Comment on above: This test was develo ped and its performance characteristicsdetermined by [facility]. It has not been cleared orapproved by the Food and Drug Administration. Luz Elena glabrata (NAYELY) Negative Negative [facility] Comment on above: This test was develo ped and its performance characteristicsdetermined by [employer]. It has not been cleared orapproved by the Food and Drug Administration. Chlamydia trachomatis (NAYELY) (LAB) Negative Negative [facility] Estimated GFR () > 60 mL/Min [facility] Comment on above: GFR estimated refere nce range: According to KDOQI guidelines, <60 ml/min/1.73m2 is sufficient to diagnose a patient with chronic kidney disease. Human Papilloma Virus Type 16 Negative Negative [facility] Human Papilloma Virus Type 18/45 Negative Negative [facility] Comment on above: Performed at: =G - [facility] [address] [id number] Director: Breanna Clark MD, Phone: [phone] at: WB - [facility] [address] [id number] Director: Breanna Clark MD, Phone: [phone] IG Pap w/Ct-Ng Age Based (Off-Site) Note . [facility] Comment on above: TESTS RESULT FLAG UN ITS REF RANGE LAB - Clinician Provided Cytology Information No. of containers..01 ThinPrep VialAge Brian TATE Monisha... 30-65 FLAG LEGEND: L-Low Normal,H-High Normal,LL-Alert Low,HH-Alert High <-Panic Low,>-Panic High,A-Abnormal,AA-Critical Abnormal ------Performed at:01 =G [facility] [place] [address] [place] [address] Breanna Clark MD, Pharmacy Creatinine Clearance (Chem N/A [facility] Thin Prep Pap Comment Note . [facility] Comment on above: TESTS RESULT FLAG UN ITS REF RANGE LAB -DIAGNOSIS: 02 NEGATIVE FOR INTRAEPITHELIAL LESION OR MALIGNANCY. THIS SPECIMEN WAS RESCREENED PART OF OUR REHABILITATION TECH PROGRAM.Specimen adequacy: 02 Satisfactory for evaluation. Endocervical and/or squamous metaplastic cells (endocervical component) are present.Performed by: 02 Larry Mirza, [employer] Converter Operator (ASCP)QC reviewed by: 02 Sammie Thomason, Supervisory [employer] Converter Operator (ASC). 02Note: Note 02 The Pap smear [...] Low,>-Panic High,A-Abnormal,AA-Critical Abnormal ------Performed at:02 WB [facility] [place] [address] [place] [address] Breanna Clark MD, Trichomonas vaginalis (NAYELY) Negative Negative [facility] Nucleated erythrocytes [Pres ence] in Blood by Automated countOrdered By: Ajit Pettit on 11-05-2022 Nucleated RBC Auto Ql (Bld) 0.1 /100{WBC} 0-0.5 [facility] Platelet adequacy [Presence] in Blood by Light microscopyOrdered By: Ajit Pettit on 11-05-2022 Platelets LM Ql (Bld) Normal Normal [facility] Platelet mean volume Auto (B ld) [Entitic vol]Ordered By: Ajit Pettit on 11-05-2022 Platelet mean volume (Bld) [Entitic vol] 9.1 fL 6.3-10.7 [facility] Platelet morphology finding [Identifier] in BloodOrdered By: Ajit Pettit on 11-05-2022 Platelet morphology finding Nom (Bld) N/A [facility] Platelets Auto (Bld) [#/Vol] Ordered By: Ajit Pettit on 11-05-2022 Platelets (Bld) [#/Vol] 304 10*3/uL 150-450 [facility] Platelets Large [Presence] i n Blood by Light microscopyOrdered By: Ajit Pettit on 11-05-2022 Platelets Large LM Ql (Bld) Slight [facility] Polychromasia [Presence] in Blood by Light microscopyOrdered By: Ajit Pettit on 11-05-2022 Polychromasia LM Ql (Bld) Slight [facility] Protein [Mass/volume] in Ser um or PlasmaOrdered By: Ajit Pettit on 11-05-2022 Protein [Mass/Vol] 6.8 g/dL 6.1-7.9 [facility] RBC Auto (Bld) [#/Vol]Ordere d By: Ajit Pettit on 11-05-2022 RBC (Bld) [#/Vol] 4.46 10*6/uL 3.60-5.00 [facility] RBC morphologyOrdered By: Cole Pettit on 11-05-2022 RBC morphology finding Nom (Bld) N/A [facility] Serum or plasma alanine george otransferase measurement without P-5'-P (enzymatic activiOrdered By: Ajit Pettit on 11-05-2022 ALT No additional P-5'-P [Catalytic activity/Vol] 16 U/L 10-60 [facility] Serum or plasma albumin/glob ulin mass ratioOrdered By: Ajit Pettit on 11-05-2022 Albumin/Globulin [Mass ratio] 1.6 {ratio} [facility] Serum or plasma alkaline lalo sphatase measurement (enzymatic activity/volume)Ordered By: Ajit Pettit on 11-05-2022 ALP [Catalytic activity/Vol] 52 U/L 32-92 [facility] Serum or plasma anion gap de terminationOrdered By: Ajit Pettit on 11-05-2022 Anion gap [Moles/Vol] 14.2 mmol/L 6.0-15.0 [facility] Serum or plasma aspartate am inotransferase measurement (enzymatic activity/volume)Ordered By: Ajit Pettit on 11-05-2022 AST [Catalytic activity/Vol] 20 U/L 10-42 [facility] Serum or plasma calcium ashwini urement (mass/volume)Ordered By: Ajit Pettit on 11-05-2022 Calcium [Mass/Vol] 9.3 mg/dL 8.2-10.2 [facility] Serum or plasma chloride jett surement (moles/volume)Ordered By: Ajit Pettit on 11-05-2022 Chloride [Moles/Vol] 99 mmol/L 95-114 [facility] Serum or plasma glucose ashwini urement (mass/volume)Ordered By: Ajit Pettit on 11-05-2022 Glucose [Mass/Vol] 96 mg/dL 70-100 [facility] Comment on above: ADA recommended refe rence rangeRandom Glucose Reference Range is dependent on time and content of last meal. Glucose of more than 200 mg/dL in a nonstressed, ambulatory subject supports the diagnosis of Diabetes Mellitus. Serum or plasma high density lipoprotein (HDL) cholesterol measurementOrdered By: Ajit Pettit on 11-05-2022 Cholesterol in HDL [Mass/Vol] 42 mg/dL 35-85 [facility] Comment on above: HDL CHOL ATP-III CLA SSIFICATION Cardiovascular RiskHDL > or equal to 60 mg/dL LOWHDL < 40 mg/dL HIGH Serum or plasma potassium me asurement (moles/volume)Ordered By: Ajit Pettit on 11-05-2022 Potassium [Moles/Vol] 4.3 mmol/L 3.5-5.1 [facility] Serum or plasma sodium measu rement (moles/volume)Ordered By: Ajit Pettit on 11-05-2022 Sodium [Moles/Vol] 132 mmol/L 136-146 [facility] Serum or plasma total biliru bin measurement (mass/volume)Ordered By: Ajit Pettit on 11-05-2022 Bilirubin [Mass/Vol] 0.3 mg/dL 0.3-1.2 [facility] Serum or plasma total carbon dioxide measurement (moles/volume)Ordered By: Ajit Pettit on 11-05-2022 CO2 [Moles/Vol] 23.1 mmol/L 22.0-30.0 [facility] Serum or plasma total choles terol/high density lipoprotein (HDL) cholesterol mass ratOrdered By: Ajit Pettit on 11-05-2022 Cholesterol.total/Suellen sterol in HDL [Mass ratio] 4.1 {ratio} <5.0 [facility] Serum or plasma urea nitroge n measurement (mass/volume)Ordered By: Ajit Pettit on 11-05-2022 Urea nitrogen [Mass/Vol] 7 mg/dL 9-23 [facility] TSH DL <= 0.005 mIU/L QnOrde red By: Ajit Pettit on 11-05-2022 TSH Qn 4.07 m[IU]/L 0.45-5.33 [facility] Triglyceride [Mass/volume] i n Serum or PlasmaOrdered By: Ajit Pettit on 11-05-2022 Triglyceride [Mass/Vol] 330 mg/dL 35-149 [facility] Comment on above: TRIG ATP III CLASSIF ICATIONTRIG less than 150 mg/dL NormalTRIG 150-199 mg/dL Borderline highTRIG 200-500 mg/dL High TRIG greater than 500 mg/dL Very highStandard traceable to the Center for Disease Conrtrol and Prevention (CDC) test method. Urine culture routineOrdered By: Ajit Pettit on 11-05-2022 Bacteria identified Cx Nom (U) No Growth 2 Days [facility] Vaginal fluid Atopobium vagi rich DNA detection by probe and target amplification methoOrdered By: Ajit Pettit on 11-05-2022 A. vaginae DNA NAYELY+probe Ql (Vag fld) Low - 0 Score . [facility] Vaginal fluid Megasphaera sp ecies type 1 DNA detection by probe and target amplificatOrdered By: Ajit Pettit on 11-05-2022 Megasphaera sp type 1 DNA NAYELY+probe Ql (Vag fld) Low - 0 Score . [facility] Comment on above: Calculate total scor e by adding the 3 individual bacterialvaginosis (BV) marker scores together. Total score isinterpreted as follows:Total score 0-1: Indicates the absence of BV.Total score 2: Indeterminate for BV. Additional clinical data should be evaluated to establish a diagnosis.Total score 3-6: Indicates the presence of BV.This test was developed and its performance characteristicsdetermined by [employer]. It has not been cleared or approvedby the Food and Drug Administration. Vaginal fluid bacterial vagi nosis associated bacterium 2 DNA detection by probe and tOrdered By: Ajit Pettit on 11-05-2022 Bacterial vaginosis associated bacterium 2 DNA NAYELY+probe Ql (Vag fld) Low - 0 Score . [facility] WBC Auto (Bld) [#/Vol]Ordere d By: Ajit Pettit on 11-05-2022 WBC (Bld) [#/Vol] 13.7 10*3/uL 3.8-11.6 [facility] Basophils Auto (Bld) [#/Vol] Ordered By: Ajit Pettit on 07-08-2022 Basophils (Bld) [#/Vol] 0.1 10*3/uL 0.0-0.2 [facility] Basophils/100 WBC Auto (Bld) Ordered By: Ajit Pettit on 07-08-2022 Basophils/100 WBC (Bld) 0.4 % . [facility] Blood hemoglobin measurement (mass/volume)Ordered By: Ajit Pettit on 07-08-2022 Hemoglobin (Bld) [Mass/Vol] 12.7 g/dL 11.8-15.4 [facility] Blood leukocytes automated c ount (number/volume)Ordered By: Ajit Pettit on 07-08-2022 WBC (Bld) [#/Vol] 14.3 10*3/uL 4.5-11.0 [facility] Body fluid albumin measureme nt (mass/volume)Ordered By: Ajit Pettit on 07-08-2022 Albumin (Body fld) [Mass/Vol] 3.6 g/dL 3.2-5.5 [facility] Creatinine and Glomerular fi ltration rate.predicted panel (S/P/Bld)Ordered By: Ajit Pettit on 07-08-2022 Creatinine [Mass/Vol] 0.66 mg/dL 0.44-1.03 [facility] Eosinophils Auto (Bld) [#/Vo l]Ordered By: Ajit Pettit on 07-08-2022 Eosinophils (Bld) [#/Vol] 0.2 10*3/uL 0.0-0.45 [facility] Eosinophils/100 WBC Auto (Bl d)Ordered By: Ajit Pettit on 07-08-2022 Eosinophils/100 WBC (Bld) 1.2 % . [facility] Erythrocyte distribution wid th Auto (RBC) [Ratio]Ordered By: Ajit Pettit on 07-08-2022 Erythrocyte distribution width (RBC) [Ratio] 13.5 % 11.9-15.3 [facility] Estimated glomerular filtrat ion rate (GFR) non- AmericanOrdered By: Ajit Pettit on 07-08-2022 GFR/1.73 sq M.predicted among non-blacks MDRD (S/P/Bld) [Vol rate/Area] > 60 mL/Min [facility] Globulin Calc (S) [Mass/Vol] Ordered By: Ajit Pettit on 07-08-2022 Globulin (S) [Mass/Vol] 2.4 g/dL [facility] Hematocrit Auto (Bld) [Volum e fraction]Ordered By: Ajit Pettit on 07-08-2022 Hematocrit (Bld) [Volume fraction] 38.9 % 34.0-46.4 [facility] - Hematology and Cell countsOrdered By: Ajit Pettit on 07-08-2022 Nucleated RBC/100 WBC (Bld) [Ratio] 0.0 % 0-0.5 [facility] Lymphocytes Auto (Bld) [#/Vo l]Ordered By: Ajit Pettit on 07-08-2022 Lymphocytes (Bld) [#/Vol] 4.5 10*3/uL 1.00-4.8 [facility] Lymphocytes/100 WBC Auto (Bl d)Ordered By: Ajit Pettit on 07-08-2022 Lymphocytes/100 WBC (Bld) 31.2 % . [facility] MCH Auto (RBC) [Entitic mass ]Ordered By: Ajit Pettit on 07-08-2022 MCH (RBC) [Entitic mass] 29.7 pg 24.7-34.3 [facility] MCHC Auto (RBC) [Mass/Vol]Or dered By: Ajit Pettit on 07-08-2022 MCHC (RBC) [Mass/Vol] 32.7 g/dL 32.0-35.0 [facility] MCV Auto (RBC) [Entitic vol] Ordered By: Ajit Pettit on 07-08-2022 MCV (RBC) [Entitic vol] 90.8 fL 80-100 [facility] Monocytes Auto (Bld) [#/Vol] Ordered By: Ajit Pettit on 07-08-2022 Monocytes (Bld) [#/Vol] 1.1 10*3/uL 0.0-0.8 [facility] Monocytes/100 WBC Auto (Bld) Ordered By: Ajit Pettit on 07-08-2022 Monocytes/100 WBC (Bld) 7.8 % . [facility] Neutrophils Auto (Bld) [#/Vo l]Ordered By: Ajit Pettit on 07-08-2022 Neutrophils (Bld) [#/Vol] 8.5 10*3/uL 1.8-7.7 [facility] Neutrophils/100 WBC Auto (Bl d)Ordered By: Ajit Pettit on 07-08-2022 Neutrophils/100 WBC (Bld) 59.4 % . [facility] No Panel InformationOrdered By: Ajit Pettit on 07-08-2022 Estimated GFR () > 60 mL/Min [facility] Comment on above: GFR estimated refere nce range: According to KDOQI guidelines, <60 ml/min/1.73m2 is sufficient to diagnose a patient with chronic kidney disease. Pharmacy Creatinine Clearance (Chem N/A [facility] Platelet mean volume Auto (B ld) [Entitic vol]Ordered By: Ajti Pettit on 07-08-2022 Platelet mean volume (Bld) [Entitic vol] 8.3 fL 6.3-10.7 [facility] Platelets Auto (Bld) [#/Vol] Ordered By: Ajit Pettit on 07-08-2022 Platelets (Bld) [#/Vol] 332 10*3/uL 150-450 [facility] Protein [Mass/volume] in Ser um or PlasmaOrdered By: Ajit Pettit on 07-08-2022 Protein [Mass/Vol] 6.0 g/dL 6.1-7.9 [facility] RBC Auto (Bld) [#/Vol]Ordere d By: Ajit Pettit on 07-08-2022 RBC (Bld) [#/Vol] 4.29 10*6/uL 3.60-5.00 [facility] Serum or plasma alanine george otransferase measurement without P-5'-P (enzymatic activiOrdered By: Ajit Pettit on 07-08-2022 ALT No additional P-5'-P [Catalytic activity/Vol] 26 U/L 10-60 [facility] Serum or plasma albumin/glob ulin mass ratioOrdered By: Ajit Pettit on 07-08-2022 Albumin/Globulin [Mass ratio] 1.5 {ratio} [facility] Serum or plasma alkaline lalo sphatase measurement (enzymatic activity/volume)Ordered By: Ajit Pettit on 07-08-2022 ALP [Catalytic activity/Vol] 46 U/L 32-92 [facility] Serum or plasma anion gap de terminationOrdered By: Ajit Pettit on 07-08-2022 Anion gap [Moles/Vol] 15.1 mmol/L 6.0-15.0 [facility] Serum or plasma aspartate am inotransferase measurement (enzymatic activity/volume)Ordered By: Ajit Pettit on 07-08-2022 AST [Catalytic activity/Vol] 31 U/L 10-42 [facility] Serum or plasma calcium ashwini urement (mass/volume)Ordered By: Ajit Pettit on 07-08-2022 Calcium [Mass/Vol] 9.3 mg/dL 8.2-10.2 [facility] Serum or plasma chloride jett surement (moles/volume)Ordered By: Ajit Pettit on 07-08-2022 Chloride [Moles/Vol] 101 mmol/L 95-114 [facility] Serum or plasma glucose ashwini urement (mass/volume)Ordered By: Ajit Pettit on 07-08-2022 Glucose [Mass/Vol] 129 mg/dL 70-100 [facility] Comment on above: ADA recommended refe rence rangeRandom Glucose Reference Range is dependent on time and content of last meal. Glucose of more than 200 mg/dL in a nonstressed, ambulatory subject supports the diagnosis of Diabetes Mellitus. Serum or plasma potassium me asurement (moles/volume)Ordered By: Ajit Pettit on 07-08-2022 Potassium [Moles/Vol] 5.0 mmol/L 3.5-5.1 [facility] Serum or plasma sodium measu rement (moles/volume)Ordered By: Ajit Pettit on 07-08-2022 Sodium [Moles/Vol] 135 mmol/L 136-146 [facility] Serum or plasma total biliru bin measurement (mass/volume)Ordered By: Ajit Pettit on 07-08-2022 Bilirubin [Mass/Vol] 0.5 mg/dL 0.3-1.2 [facility] Serum or plasma total carbon dioxide measurement (moles/volume)Ordered By: Ajit Pettit on 07-08-2022 CO2 [Moles/Vol] 23.9 mmol/L 22.0-30.0 [facility] Serum or plasma urea nitroge n measurement (mass/volume)Ordered By: Ajit Pettit on 07-08-2022 Urea nitrogen [Mass/Vol] 12 mg/dL 9-23 [facility] TSH DL <= 0.005 mIU/L QnOrde red By: Ajit Pettit on 06-24-2022 TSH Qn 4.14 m[IU]/L 0.45-5.33 [facility] Basophils Auto (Bld) [#/Vol] Ordered By: Ajit Pettit on 06-02-2022 Basophils (Bld) [#/Vol] 0.1 10*3/uL 0.0-0.2 [facility] Basophils/100 WBC Auto (Bld) Ordered By: Ajit Pettit on 06-02-2022 Basophils/100 WBC (Bld) 0.9 % . [facility] Blood hemoglobin measurement (mass/volume)Ordered By: Ajit Pettit on 06-02-2022 Hemoglobin (Bld) [Mass/Vol] 12.9 g/dL 11.8-15.4 [facility] Blood leukocytes automated c ount (number/volume)Ordered By: Ajit Pettit on 06-02-2022 WBC (Bld) [#/Vol] 16.8 10*3/uL 4.5-11.0 [facility] Body fluid albumin measureme nt (mass/volume)Ordered By: Ajit Pettit on 06-02-2022 Albumin (Body fld) [Mass/Vol] 3.5 g/dL 3.2-5.5 [facility] Creatinine and Glomerular fi ltration rate.predicted panel (S/P/Bld)Ordered By: Ajit Pettit on 06-02-2022 Creatinine [Mass/Vol] 0.58 mg/dL 0.44-1.03 [facility] Eosinophils Auto (Bld) [#/Vo l]Ordered By: Ajit Pettit on 06-02-2022 Eosinophils (Bld) [#/Vol] 0.1 10*3/uL 0.0-0.45 [facility] Eosinophils/100 WBC Auto (Bl d)Ordered By: Ajit Pettit on 06-02-2022 Eosinophils/100 WBC (Bld) 0.7 % . [facility] Erythrocyte distribution wid th Auto (RBC) [Ratio]Ordered By: Ajit Pettit on 06-02-2022 Erythrocyte distribution width (RBC) [Ratio] 13.3 % 11.9-15.3 [facility] Estimated glomerular filtrat ion rate (GFR) non- AmericanOrdered By: Ajit Pettit on 06-02-2022 GFR/1.73 sq M.predicted among non-blacks MDRD (S/P/Bld) [Vol rate/Area] > 60 mL/Min [facility] Globulin Calc (S) [Mass/Vol] Ordered By: Ajit Pettit on 06-02-2022 Globulin (S) [Mass/Vol] 2.5 g/dL [facility] Hematocrit Auto (Bld) [Volum e fraction]Ordered By: Ajit Pettit on 06-02-2022 Hematocrit (Bld) [Volume fraction] 38.8 % 34.0-46.4 [facility] Laboratory - Hematology and Cell countsOrdered By: Ajit Pettit on 06-02-2022 Nucleated RBC/100 WBC (Bld) [Ratio] 0.0 % 0-0.5 [facility] Lymphocytes Auto (Bld) [#/Vo l]Ordered By: Ajit Pettit on 06-02-2022 Lymphocytes (Bld) [#/Vol] 3.4 10*3/uL 1.00-4.8 [facility] Lymphocytes/100 WBC Auto (Bl d)Ordered By: Ajit Pettit on 06-02-2022 Lymphocytes/100 WBC (Bld) 20.3 % . [facility] MCH Auto (RBC) [Entitic mass ]Ordered By: Ajit Pettit on 06-02-2022 MCH (RBC) [Entitic mass] 30.3 pg 24.7-34.3 [facility] MCHC Auto (RBC) [Mass/Vol]Or dered By: Ajit Pettit on 06-02-2022 MCHC (RBC) [Mass/Vol] 33.2 g/dL 32.0-35.0 [facility] MCV Auto (RBC) [Entitic vol] Ordered By: Ajit Millanc on 06-02-2022 MCV (RBC) [Entitic vol] 91.1 fL 80-100 [facility] Monocytes Auto (Bld) [#/Vol] Ordered By: Ajit Spasic on 06-02-2022 Monocytes (Bld) [#/Vol] 1.2 10*3/uL 0.0-0.8 [facility] Monocytes/100 WBC Auto (Bld) Ordered By: Ajit Spasic on 06-02-2022 Monocytes/100 WBC (Bld) 7.2 % . [facility] Neutrophils Auto (Bld) [#/Vo l]Ordered By: Ajit Harrietsic on 06-02-2022 Neutrophils (Bld) [#/Vol] 11.9 10*3/uL 1.8-7.7 [facility] Neutrophils/100 WBC Auto (Bl d)Ordered By: Ajitcristal Millanc on 06-02-2022 Neutrophils/100 WBC (Bld) 70.9 % . [facility] No Panel InformationOrdered By: Ajit Pettit on 06-02-2022 Estimated GFR () > 60 mL/Min [facility] Comment on above: GFR estimated refere nce range: According to KDOQI guidelines, <60 ml/min/1.73m2 is sufficient to diagnose a patient with chronic kidney disease. Pharmacy Creatinine Clearance (Chem N/A [facility] Platelet mean volume Auto (B ld) [Entitic vol]Ordered By: Ajit Pettit on 06-02-2022 Platelet mean volume (Bld) [Entitic vol] 9.2 fL 6.3-10.7 [facility] Platelets Auto (Bld) [#/Vol] Ordered By: Ajit Lariossic on 06-02-2022 Platelets (Bld) [#/Vol] 313 10*3/uL 150-450 [facility] Protein [Mass/volume] in Ser um or PlasmaOrdered By: Ajit Millanc on 06-02-2022 Protein [Mass/Vol] 6.0 g/dL 6.1-7.9 [facility] RBC Auto (Bld) [#/Vol]Ordere d By: Ajit Pettit on 06-02-2022 RBC (Bld) [#/Vol] 4.26 10*6/uL 3.60-5.00 [facility] Serum or plasma alanine george otransferase measurement without P-5'-P (enzymatic activiOrdered By: Ajit Pettit on 06-02-2022 ALT No additional P-5'-P [Catalytic activity/Vol] 20 U/L 10-60 [facility] Serum or plasma albumin/glob ulin mass ratioOrdered By: Ajit Pettit on 06-02-2022 Albumin/Globulin [Mass ratio] 1.4 {ratio} [facility] Serum or plasma alkaline lalo sphatase measurement (enzymatic activity/volume)Ordered By: Ajit Pettit on 06-02-2022 ALP [Catalytic activity/Vol] 48 U/L 32-92 [facility] Serum or plasma anion gap de terminationOrdered By: Ajit Pettit on 06-02-2022 Anion gap [Moles/Vol] 15.8 mmol/L 6.0-15.0 [facility] Serum or plasma aspartate am inotransferase measurement (enzymatic activity/volume)Ordered By: Ajit Pettit on 06-02-2022 AST [Catalytic activity/Vol] 21 U/L 10-42 [facility] Serum or plasma calcium ashwini urement (mass/volume)Ordered By: Ajit Pettit on 06-02-2022 Calcium [Mass/Vol] 9.1 mg/dL 8.2-10.2 [facility] Serum or plasma chloride jett surement (moles/volume)Ordered By: Ajit Pettit on 06-02-2022 Chloride [Moles/Vol] 100 mmol/L 95-114 [facility] Serum or plasma glucose ashwini urement (mass/volume)Ordered By: Ajit Pettit on 06-02-2022 Glucose [Mass/Vol] 141 mg/dL 70-100 [facility] Comment on above: ADA recommended refe [...] on 06-02-2022 Potassium [Moles/Vol] 4.3 mmol/L 3.5-5.1 [facility] Serum or plasma sodium measu rement (moles/volume)Ordered By: Ajit Pettit on 06-02-2022 Sodium [Moles/Vol] 132 mmol/L 136-146 [facility] Serum or plasma total biliru bin measurement (mass/volume)Ordered By: Ajit Pettit on 06-02-2022 Bilirubin [Mass/Vol] 0.5 mg/dL 0.3-1.2 [facility] Serum or plasma total carbon dioxide measurement (moles/volume)Ordered By: Ajit Pettit on 06-02-2022 CO2 [Moles/Vol] 20.5 mmol/L 22.0-30.0 [facility] Serum or plasma urea nitroge n measurement (mass/volume)Ordered By: Ajit Pettit on 06-02-2022 Urea nitrogen [Mass/Vol] 12 mg/dL 9-23 [facility] TSH DL <= 0.005 mIU/L QnOrde red By: Ajit Pettit on 06-02-2022 TSH Qn 2.06 m[IU]/L 0.45-5.33 [facility] Basophils Auto (Bld) [#/Vol] Ordered By: Jasmin Velázquez on 05-27-2022 Basophils (Bld) [#/Vol] 0.1 10*3/uL 0.0-0.2 [facility] Basophils/100 WBC Auto (Bld) Ordered By: Jasmin Velázquez on 05-27-2022 Basophils/100 WBC (Bld) 0.6 % . [facility] Blood hemoglobin measurement (mass/volume)Ordered By: Jasmin Velázquez on 05-27-2022 Hemoglobin (Bld) [Mass/Vol] 13.1 g/dL 11.8-15.4 [facility] Blood leukocytes automated c ount (number/volume)Ordered By: Jasmin Velázquez on 05-27-2022 WBC (Bld) [#/Vol] 13.2 10*3/uL 4.5-11.[address] [facility] [address] biopsyOrdered By: Jasmin noel on 05-27-2022 Transferrin [Mass/Vol] 307 mg/dL 180-380 [facility] Eosinophils Auto (Bld) [#/Vo l]Ordered By: Jasmin Velázquez on 05-27-2022 Eosinophils (Bld) [#/Vol] 0.1 10*3/uL 0.0-0.45 [facility] Eosinophils/100 WBC Auto (Bl d)Ordered By: Jasmin Velázquez on 05-27-2022 Eosinophils/100 WBC (Bld) 1.0 % . [facility] Erythrocyte distribution wid th Auto (RBC) [Ratio]Ordered By: Jasmin Velázquez on 05-27-2022 Erythrocyte distribution width (RBC) [Ratio] 13.5 % 11.9-15.3 [facility] Ferritin [Mass/volume] in Se rum or PlasmaOrdered By: Jasmin Veláqzuez on 05-27-2022 Ferritin [Mass/Vol] 49.6 ng/mL 11-306.8 [facility] Hematocrit Auto (Bld) [Volum e fraction]Ordered By: Jasmin Velázquez on 05-27-2022 Hematocrit (Bld) [Volume fraction] 40.1 % 34.0-46.4 [facility] Iron [Mass/volume] in Serum or PlasmaOrdered By: Jasmin Velázquez on 05-27-2022 Iron [Mass/Vol] 50 ug/dL 40-150 [facility] Iron binding capacity [Mass/ volume] in Serum or PlasmaOrdered By: Jasmin Velázquez on 05-27-2022 Iron binding capacity [Mass/Vol] 430 ug/dL 255-450 [facility] Iron saturation [Mass Fracti on] in Serum or PlasmaOrdered By: Jasmin Velázquez on 05-27-2022 Iron saturation [Mass fraction] 11.0 % 20-50 [facility] Laboratory - Hematology and Cell countsOrdered By: Jasmin Velázquez on 05-27-2022 Nucleated RBC/100 WBC (Bld) [Ratio] 0.1 % 0-0.5 [facility] Lymphocytes Auto (Bld) [#/Vo l]Ordered By: Jasmin Velázquez on 05-27-2022 Lymphocytes (Bld) [#/Vol] 3.3 10*3/uL 1.00-4.8 [facility] Lymphocytes/100 WBC Auto (Bl d)Ordered By: Jasmin Velázquez on 05-27-2022 Lymphocytes/100 WBC (Bld) 24.8 % . [facility] MCH Auto (RBC) [Entitic mass ]Ordered By: Jasmin Velázquez on 05-27-2022 MCH (RBC) [Entitic mass] 30.0 pg 24.7-34.3 [facility] MCHC Auto (RBC) [Mass/Vol]Or dered By: Jasmin Velázquez on 05-27-2022 MCHC (RBC) [Mass/Vol] 32.7 g/dL 32.0-35.0 [facility] MCV Auto (RBC) [Entitic vol] Ordered By: Jasmin Velázquez on 05-27-2022 MCV (RBC) [Entitic vol] 91.5 fL 80-100 [facility] Monocytes Auto (Bld) [#/Vol] Ordered By: Jasmin Velázquez on 05-27-2022 Monocytes (Bld) [#/Vol] 1.0 10*3/uL 0.0-0.8 [facility] Monocytes/100 WBC Auto (Bld) Ordered By: Jasmin Velázquez on 05-27-2022 Monocytes/100 WBC (Bld) 7.6 % . [facility] Neutrophils Auto (Bld) [#/Vo l]Ordered By: Jasmin Velázquez on 05-27-2022 Neutrophils (Bld) [#/Vol] 8.7 10*3/uL 1.8-7.7 [facility] Neutrophils/100 WBC Auto (Bl d)Ordered By: Jasmin Velázquez on 05-27-2022 Neutrophils/100 WBC (Bld) 66.0 % . [facility] No Panel InformationOrdered By: Jasmin Velázquez on 05-27-2022 BCR/abl See comment [facility] Comment on above: See report. Scanned copy available in EMR. Platelet mean volume Auto (B ld) [Entitic vol]Ordered By: Jasmin Velázquez on 05-27-2022 Platelet mean volume (Bld) [Entitic vol] 8.8 fL 6.3-10.7 [facility] Platelets Auto (Bld) [#/Vol] Ordered By: Jasmin Velázquez on 05-27-2022 Platelets (Bld) [#/Vol] 284 10*3/uL 150-450 [facility] RBC Auto (Bld) [#/Vol]Ordere d By: Jasmin Velázquez on 05-27-2022 RBC (Bld) [#/Vol] 4.38 10*6/uL 3.60-5.00 [facility] Basophils Auto (Bld) [#/Vol] Ordered By: Ajit Pettit on 05-07-2022 Basophils (Bld) [#/Vol] 0.1 10*3/uL 0.0-0.2 [facility] Basophils/100 WBC Auto (Bld) Ordered By: Ajit Pettit on 05-07-2022 Basophils/100 WBC (Bld) 0.6 % . [facility] Blood hemoglobin measurement (mass/volume)Ordered By: Ajit Pettit on 05-07-2022 Hemoglobin (Bld) [Mass/Vol] 13.4 g/dL 11.8-15.4 [facility] Blood leukocytes automated c ount (number/volume)Ordered By: Ajit Pettit on 05-07-2022 WBC (Bld) [#/Vol] 16.2 10*3/uL 4.5-11.0 [facility] Eosinophils Auto (Bld) [#/Vo l]Ordered By: Ajit Pettit on 05-07-2022 Eosinophils (Bld) [#/Vol] 0.1 10*3/uL 0.0-0.45 [facility] Eosinophils/100 WBC Auto (Bl d)Ordered By: Ajit Pettit on 05-07-2022 Eosinophils/100 WBC (Bld) 0.9 % . [facility] Erythrocyte distribution wid th Auto (RBC) [Ratio]Ordered By: Ajit Millanc on 05-07-2022 Erythrocyte distribution width (RBC) [Ratio] 13.6 % 11.9-15.3 [facility] Hematocrit Auto (Bld) [Volum e fraction]Ordered By: Ajit Lariossic on 05-07-2022 Hematocrit (Bld) [Volume fraction] 40.5 % 34.0-46.4 [facility] Laboratory - Hematology and Cell countsOrdered By: Ajit Millanc on 05-07-2022 Nucleated RBC/100 WBC (Bld) [Ratio] 0.0 % 0-0.5 [facility] Lymphocytes Auto (Bld) [#/Vo l]Ordered By: Ajit Lariossic on 05-07-2022 Lymphocytes (Bld) [#/Vol] 4.7 10*3/uL 1.00-4.8 [facility] Lymphocytes/100 WBC Auto (Bl d)Ordered By: Ajit Lariossic on 05-07-2022 Lymphocytes/100 WBC (Bld) 28.9 % . [facility] MCH Auto (RBC) [Entitic mass ]Ordered By: Ajit Millanc on 05-07-2022 MCH (RBC) [Entitic mass] 30.7 pg 24.7-34.3 [facility] MCHC Auto (RBC) [Mass/Vol]Or dered By: Ajit Spasic on 05-07-2022 MCHC (RBC) [Mass/Vol] 33.2 g/dL 32.0-35.0 [facility] MCV Auto (RBC) [Entitic vol] Ordered By: Ajit Lariossic on 05-07-2022 MCV (RBC) [Entitic vol] 92.5 fL 80-100 [facility] Monocytes Auto (Bld) [#/Vol] Ordered By: Ajit Spasic on 05-07-2022 Monocytes (Bld) [#/Vol] 1.1 10*3/uL 0.0-0.8 [facility] Monocytes/100 WBC Auto (Bld) Ordered By: Ajit Spasic on 05-07-2022 Monocytes/100 WBC (Bld) 6.8 % . [facility] Neutrophils Auto (Bld) [#/Vo l]Ordered By: Ajit Pettit on 05-07-2022 Neutrophils (Bld) [#/Vol] 10.2 10*3/uL 1.8-7.7 [facility] Neutrophils/100 WBC Auto (Bl d)Ordered By: Ajit Pettit on 05-07-2022 Neutrophils/100 WBC (Bld) 62.8 % . [facility] No Panel InformationOrdered By: Ajit Pettit on 05-07-2022 Platelet Estimate Normal Normal [facility] Platelet Morphology Comment Normal Normal [facility] Platelet mean volume Auto (B ld) [Entitic vol]Ordered By: Ajit Pettit on 05-07-2022 Platelet mean volume (Bld) [Entitic vol] 8.0 fL 6.3-10.7 [facility] Platelets Auto (Bld) [#/Vol] Ordered By: Ajit Pettit on 05-07-2022 Platelets (Bld) [#/Vol] 369 10*3/uL 150-450 [facility] RBC Auto (Bld) [#/Vol]Ordere d By: Ajit Pettit on 05-07-2022 RBC (Bld) [#/Vol] 4.38 10*6/uL 3.60-5.00 [facility] RBC morphologyOrdered By: Cole Pettit on 05-07-2022 RBC morphology finding Nom (Bld) Normal [facility] Bacterial blood cultureOrder ed By: Rod Alvarado on 05-06-2022 Bacteria identified Cx Nom (Bld) NO GROWTH 5 DAYS [facility] Bacteria identified Cx Nom (Bld) NO GROWTH 5 DAYS [facility] Bacterial blood cultureOrder ed By: Ajit Pettit on 05-06-2022 Bacteria identified Cx Nom (Bld) NO GROWTH 5 DAYS [facility] Urine culture routineOrdered By: Ajit Pettit on 05-02-2022 Bacteria identified Cx Nom (U) 2 Days [facility] Activated partial thrombopla stin time (aPTT) in platelet poor plasma by coagulation aOrdered By: Rod Alvarado on 05-01-2022 aPTT Coag (PPP) [Time] 29.2 s 25.1-36.5 [facility] Automated epithelial cells c ount in urine sediment (number/area)Ordered By: Rod Alvarado on 05-01-2022 Epithelial cells Auto (Urine sed) [#/Area] 5-9 [HPF] 0-2 [facility] Automated erythrocytes count in urine sediment (number/area)Ordered By: Rod Alvarado on 05-01-2022 RBC Auto (Urine sed) [#/Area] 1-2 [HPF] 0-4 [facility] Automated leukocytes count i n urine sediment (number/area)Ordered By: Rod Alvarado on 05-01-2022 WBC Auto (Urine sed) [#/Area] 1-2 [HPF] 0-4 [facility] Basophils Auto (Bld) [#/Vol] Ordered By: Rod Alvarado on 05-01-2022 Basophils (Bld) [#/Vol] 0.2 10*3/uL 0.0-0.2 [facility] Basophils Auto (Bld) [#/Vol] Ordered By: Ajit Pettit on 05-01-2022 Basophils (Bld) [#/Vol] 0.1 10*3/uL 0.0-0.2 [facility] Basophils/100 WBC Auto (Bld) Ordered By: Rod Alvarado on 05-01-2022 Basophils/100 WBC (Bld) 1.0 % . [facility] Basophils/100 WBC Auto (Bld) Ordered By: Ajit Pettit on 05-01-2022 Basophils/100 WBC (Bld) 0.7 % . [facility] Bilirubin Auto test strip Ql (U)Ordered By: Rod Alvarado on 05-01-2022 Bilirubin Ql (U) 1+ Negative [facility] Blood hemoglobin measurement (mass/volume)Ordered By: Rod Alvarado on 05-01-2022 Hemoglobin (Bld) [Mass/Vol] 13.1 g/dL 11.8-15.4 [facility] Blood hemoglobin measurement (mass/volume)Ordered By: Ajit Pettit on 05-01-2022 Hemoglobin (Bld) [Mass/Vol] 12.9 g/dL 11.8-15.4 [facility] Blood leukocytes automated c ount (number/volume)Ordered By: Rod Alvarado on 05-01-2022 WBC (Bld) [#/Vol] 15.9 10*3/uL 4.5-11.0 [facility] Blood leukocytes automated c ount (number/volume)Ordered By: Ajit Pettit on 05-01-2022 WBC (Bld) [#/Vol] 14.7 10*3/uL 4.5-11.0 [facility] Body fluid albumin measureme nt (mass/volume)Ordered By: Ajit Pettit on 05-01-2022 Albumin (Body fld) [Mass/Vol] 3.6 g/dL 3.2-5.5 [facility] Creatinine and Glomerular fi ltration rate.predicted panel (S/P/Bld)Ordered By: Rod Alvarado on 05-01-2022 Creatinine [Mass/Vol] 0.58 mg/dL 0.44-1.03 [facility] Creatinine and Glomerular fi ltration rate.predicted panel (S/P/Bld)Ordered By: Ajit Pettit on 05-01-2022 Creatinine [Mass/Vol] 0.58 mg/dL 0.44-1.03 [facility] Eosinophils Auto (Bld) [#/Vo l]Ordered By: Rod Alvarado on 05-01-2022 Eosinophils (Bld) [#/Vol] 0.2 10*3/uL 0.0-0.45 [facility] Eosinophils Auto (Bld) [#/Vo l]Ordered By: Ajit Pettit on 05-01-2022 Eosinophils (Bld) [#/Vol] 0.1 10*3/uL 0.0-0.45 [facility] Eosinophils/100 WBC Auto (Bl d)Ordered By: Rod Alvarado on 05-01-2022 Eosinophils/100 WBC (Bld) 1.0 % . [facility] Eosinophils/100 WBC Auto (Bl d)Ordered By: Ajit Pettit on 05-01-2022 Eosinophils/100 WBC (Bld) 0.9 % . [facility] Erythrocyte distribution wid th Auto (RBC) [Ratio]Ordered By: Rod Alvarado on 05-01-2022 Erythrocyte distribution width (RBC) [Ratio] 13.6 % 11.9-15.3 [facility] Erythrocyte distribution wid th Auto (RBC) [Ratio]Ordered By: Ajit Pettit on 05-01-2022 Erythrocyte distribution width (RBC) [Ratio] 13.6 % 11.9-15.3 [facility] Estimated glomerular filtrat ion rate (GFR) non- AmericanOrdered By: Rod Alvarado on 05-01-2022 GFR/1.73 sq M.predicted among non-blacks MDRD (S/P/Bld) [Vol rate/Area] > 60 mL/Min [facility] Estimated glomerular filtrat ion rate (GFR) non- AmericanOrdered By: Ajit Pettit on 05-01-2022 GFR/1.73 sq M.predicted among non-blacks MDRD (S/P/Bld) [Vol rate/Area] > 60 mL/Min [facility] Globulin Calc (S) [Mass/Vol] Ordered By: Ajit Pettit on 05-01-2022 Globulin (S) [Mass/Vol] 2.6 g/dL [facility] Hematocrit Auto (Bld) [Volum e fraction]Ordered By: Rod Alvarado on 05-01-2022 Hematocrit (Bld) [Volume fraction] 39.0 % 34.0-46.4 [facility] Hematocrit Auto (Bld) [Volum e fraction]Ordered By: Ajit Pettit on 05-01-2022 Hematocrit (Bld) [Volume fraction] 39.0 % 34.0-46.4 [facility] Ketones Auto test strip (U) [Mass/Vol]Ordered By: Rod Alvarado on 05-01-2022 Ketones (U) [Mass/Vol] Trace Negative Fi [facility] - Chemistry and C hemistry - challengeOrdered By: Rod Alvarado on 05-01-2022 Lipase [Catalytic activity/Vol] 37.0 U/L 22-51 [facility] - CoagulationOrde red By: Rod Alvarado on 05-01-2022 PT Coag (PPP) [Time] 9.6 s 9.0-12.9 [facility] - Hematology and Cell countsOrdered By: Rod Alvarado on 05-01-2022 Nucleated RBC/100 WBC (Bld) [Ratio] 0.0 % 0-0.5 [facility] Laboratory - Hematology and Cell countsOrdered By: Ajit Pettit on 05-01-2022 Nucleated RBC/100 WBC (Bld) [Ratio] 0.0 % 0-0.5 [facility] Lymphocytes Auto (Bld) [#/Vo l]Ordered By: Rod Alvarado on 05-01-2022 Lymphocytes (Bld) [#/Vol] 4.3 10*3/uL 1.00-4.8 [facility] Lymphocytes Auto (Bld) [#/Vo l]Ordered By: Ajit Pettit on 05-01-2022 Lymphocytes (Bld) [#/Vol] 3.6 10*3/uL 1.00-4.8 [facility] Lymphocytes/100 WBC Auto (Bl d)Ordered By: Rod Alvarado on 05-01-2022 Lymphocytes/100 WBC (Bld) 26.9 % . [facility] Lymphocytes/100 WBC Auto (Bl d)Ordered By: Ajit Pettit on 05-01-2022 Lymphocytes/100 WBC (Bld) 24.8 % . [facility] MCH Auto (RBC) [Entitic mass ]Ordered By: Rod Alvarado on 05-01-2022 MCH (RBC) [Entitic mass] 30.5 pg 24.7-34.3 [facility] MCH Auto (RBC) [Entitic mass ]Ordered By: Ajit Pettit on 05-01-2022 MCH (RBC) [Entitic mass] 30.5 pg 24.7-34.3 [facility] MCHC Auto (RBC) [Mass/Vol]Or dered By: Rod Alvarado on 05-01-2022 MCHC (RBC) [Mass/Vol] 33.5 g/dL 32.0-35.0 [facility] MCHC Auto (RBC) [Mass/Vol]Or dered By: Ajit Pettit on 05-01-2022 MCHC (RBC) [Mass/Vol] 32.9 g/dL 32.0-35.0 [facility] MCV Auto (RBC) [Entitic vol] Ordered By: Rod Alvarado on 05-01-2022 MCV (RBC) [Entitic vol] 91.0 fL 80-100 [facility] MCV Auto (RBC) [Entitic vol] Ordered By: Ajit Lariossic on 05-01-2022 MCV (RBC) [Entitic vol] 92.6 fL 80-100 [facility] Monocytes Auto (Bld) [#/Vol] Ordered By: Rod Alvarado on 05-01-2022 Monocytes (Bld) [#/Vol] 1.1 10*3/uL 0.0-0.8 [facility] Monocytes Auto (Bld) [#/Vol] Ordered By: Ajit Millanc on 05-01-2022 Monocytes (Bld) [#/Vol] 1.1 10*3/uL 0.0-0.8 [facility] Monocytes/100 WBC Auto (Bld) Ordered By: Rod Alvarado on 05-01-2022 Monocytes/100 WBC (Bld) 6.7 % . [facility] Monocytes/100 WBC Auto (Bld) Ordered By: Ajit Millanc on 05-01-2022 Monocytes/100 WBC (Bld) 7.2 % . [facility] Neutrophils Auto (Bld) [#/Vo l]Ordered By: Rod Alvarado on 05-01-2022 Neutrophils (Bld) [#/Vol] 10.3 10*3/uL 1.8-7.7 [facility] Neutrophils Auto (Bld) [#/Vo l]Ordered By: Ajit Millanc on 05-01-2022 Neutrophils (Bld) [#/Vol] 9.8 10*3/uL 1.8-7.7 [facility] Neutrophils/100 WBC Auto (Bl d)Ordered By: Rod Alvarado on 05-01-2022 Neutrophils/100 WBC (Bld) 64.4 % . [facility] Neutrophils/100 WBC Auto (Bl d)Ordered By: Ajit Millanc on 05-01-2022 Neutrophils/100 WBC (Bld) 66.4 % . [facility] No Panel InformationOrdered By: Rod Alvarado on 05-01-2022 Estimated GFR () > 60 mL/Min [facility] Comment on above: GFR estimated refere nce range: According to KDOQI guidelines, <60 ml/min/1.73m2 is sufficient to diagnose a patient with chronic kidney disease. Pharmacy Creatinine Clearance (Chem 128.97 [facility] No Panel InformationOrdered By: Ajit Pettit on 05-01-2022 Estimated GFR () > 60 mL/Min [facility] Comment on above: GFR estimated refere nce range: According to KDOQI guidelines, <60 ml/min/1.73m2 is sufficient to diagnose a patient with chronic kidney disease. Pharmacy Creatinine Clearance (Chem N/A [facility] Platelet mean volume Auto (B ld) [Entitic vol]Ordered By: Rod Alvarado on 05-01-2022 Platelet mean volume (Bld) [Entitic vol] 7.6 fL 6.3-10.7 [facility] Platelet mean volume Auto (B ld) [Entitic vol]Ordered By: Ajit Pettit on 05-01-2022 Platelet mean volume (Bld) [Entitic vol] 8.1 fL 6.3-10.7 [facility] Platelet poor plasma interna tional normalized ratio (INR) by coagulation assay (relatOrdered By: Rod Alvarado on 05-01-2022 INR Coag (PPP) [Relative time] 0.9 {INR} [facility] Comment on above: INR Therapeutic Rang [...] 05-01-2022 Platelets (Bld) [#/Vol] 310 10*3/uL 150-450 [facility] Platelets Auto (Bld) [#/Vol] Ordered By: Ajit Pettit on 05-01-2022 Platelets (Bld) [#/Vol] 284 10*3/uL 150-450 [facility] Protein Auto test strip (U) [Mass/Vol]Ordered By: Rod Alvarado on 05-01-2022 Protein (U) [Mass/Vol] Negative Negative [facility] Protein [Mass/volume] in Ser um or PlasmaOrdered By: Ajit Pettit on 05-01-2022 Protein [Mass/Vol] 6.2 g/dL 6.1-7.9 [facility] RBC Auto (Bld) [#/Vol]Ordere d By: Rod Alvarado on 05-01-2022 RBC (Bld) [#/Vol] 4.29 10*6/uL 3.60-5.00 [facility] RBC Auto (Bld) [#/Vol]Ordere d By: Ajit Pettit on 05-01-2022 RBC (Bld) [#/Vol] 4.22 10*6/uL 3.60-5.00 [facility] Serum or plasma alanine george otransferase measurement without P-5'-P (enzymatic activiOrdered By: Ajit Pettit on 05-01-2022 ALT No additional P-5'-P [Catalytic activity/Vol] 17 U/L 10-60 [facility] Serum or plasma albumin/glob ulin mass ratioOrdered By: Ajit Pettit on 05-01-2022 Albumin/Globulin [Mass ratio] 1.4 {ratio} [facility] Serum or plasma alkaline lalo sphatase measurement (enzymatic activity/volume)Ordered By: Ajit Pettit on 05-01-2022 ALP [Catalytic activity/Vol] 52 U/L 32-92 [facility] Serum or plasma aspartate am inotransferase measurement (enzymatic activity/volume)Ordered By: Ajit Pettit on 05-01-2022 AST [Catalytic activity/Vol] 19 U/L 10-42 [facility] Serum or plasma calcium ashwini urement (mass/volume)Ordered By: Rod Alvarado on 05-01-2022 Calcium [Mass/Vol] 9.0 mg/dL 8.2-10.2 [facility] Serum or plasma calcium ashwini urement (mass/volume)Ordered By: Ajit Pettit on 05-01-2022 Calcium [Mass/Vol] 9.2 mg/dL 8.2-10.2 [facility] Serum or plasma chloride jett surement (moles/volume)Ordered By: Rod Alvarado on 05-01-2022 Chloride [Moles/Vol] 101 mmol/L 95-114 [facility] Serum or plasma chloride jett surement (moles/volume)Ordered By: Ajit Pettit on 05-01-2022 Chloride [Moles/Vol] 100 mmol/L 95-114 [facility] Serum or plasma glucose ashwini urement (mass/volume)Ordered By: Rod Alvarado on 05-01-2022 Glucose [Mass/Vol] 110 mg/dL 70-100 [facility] Comment on above: ADA recommended refe [...] on 05-01-2022 Glucose [Mass/Vol] 117 mg/dL 70-100 [facility] Comment on above: ADA recommended refe [...] on 05-01-2022 Potassium [Moles/Vol] 4.4 mmol/L 3.5-5.1 [facility] Serum or plasma potassium me asurement (moles/volume)Ordered By: Ajit Pettit on 05-01-2022 Potassium [Moles/Vol] 4.4 mmol/L 3.5-5.1 [facility] Serum or plasma sodium measu rement (moles/volume)Ordered By: Rod Alvarado on 05-01-2022 Sodium [Moles/Vol] 135 mmol/L 136-146 [facility] Serum or plasma sodium measu rement (moles/volume)Ordered By: Ajit Pettit on 05-01-2022 Sodium [Moles/Vol] 133 mmol/L 136-146 [facility] Serum or plasma total biliru bin measurement (mass/volume)Ordered By: Rod Alvarado on 05-01-2022 Bilirubin [Mass/Vol] 0.7 mg/dL 0.3-1.2 [facility] Serum or plasma total biliru bin measurement (mass/volume)Ordered By: Ajit Pettit on 05-01-2022 Bilirubin [Mass/Vol] 0.4 mg/dL 0.3-1.2 [facility] Serum or plasma total carbon dioxide measurement (moles/volume)Ordered By: Rod Alvarado on 05-01-2022 CO2 [Moles/Vol] 25.9 mmol/L 22.0-30.0 [facility] Serum or plasma total carbon dioxide measurement (moles/volume)Ordered By: Ajit Pettit on 05-01-2022 CO2 [Moles/Vol] 23.1 mmol/L 22.0-30.0 [facility] Serum or plasma urea nitroge n measurement (mass/volume)Ordered By: Rod Alvarado on 05-01-2022 Urea nitrogen [Mass/Vol] 11 mg/dL 06-26 [facility] Serum or plasma urea nitroge n measurement (mass/volume)Ordered By: Ajit Pettit on 05-01-2022 Urea nitrogen [Mass/Vol] 14 mg/dL 06-26 [facility] Urine appearanceOrdered By: Rod Alvarado on 05-01-2022 Appearance (U) Clear Clear [facility] Urine bacteria detection by automated methodOrdered By: Rod Alvarado on 05-01-2022 Bacteria Auto Ql (U) 1+ None Seen [facility] Urine colorOrdered By: Shady Alvarado on 05-01-2022 Color (U) Yellow Yellow [facility] Urine glucose measurement by automated test strip (mass/volume)Ordered By: Rod Alvarado on 05-01-2022 Glucose Auto test strip (U) [Mass/Vol] Normal mg/dL Normal [facility] Urine hemoglobin detection b y automated test stripOrdered By: Rod Alvarado on 05-01-2022 Hemoglobin Auto test strip Ql (U) Negative Negative [facility] Urine lactic acid measuremen tOrdered By: Rod Alvarado on 05-01-2022 Lactate (U) [Moles/Vol] 1.7 mmol/L 0.5-2.2 [facility] Urine lactic acid measuremen tOrdered By: Ajit Pettit on 05-01-2022 Lactate (U) [Moles/Vol] 2.5 mmol/L 0.5-2.2 [facility] Comment on above: Results called at 1022 on 05/01/22 Results calledat 102 2 on 05/01/22 Urine leukocyte esterase det ection by automated test stripOrdered By: Rod Alvarado on 05-01-2022 Leukocyte esterase Auto test strip Ql (U) 2+ Negative [facility] Urine nitrite detection by a utomated test stripOrdered By: Rod Alvarado on 05-01-2022 Nitrite Auto test strip Ql (U) Negative Negative [facility] Urobilinogen Auto test strip (U) [Mass/Vol]Ordered By: Rod Alvarado on 05-01-2022 Urobilinogen (U) [Mass/Vol] Normal mg/dL Normal [facility] pH Auto test strip (U)Ordere d By: Rod Alvarado on 05-01-2022 pH (U) 1.030 [pH] 1.001-1.03 0 [facility] pH (U) 6.0 [pH] 5.0-9.0 [facility] Basophils Auto (Bld) [#/Vol] Ordered By: Ajit Pettit on 04-30-2022 Basophils (Bld) [#/Vol] 0.2 10*3/uL 0.0-0.2 [facility] Basophils/100 WBC Auto (Bld) Ordered By: Ajit Pettit on 04-30-2022 Basophils/100 WBC (Bld) 0.9 % . [facility] Blood hemoglobin measurement (mass/volume)Ordered By: Ajit Pettit on 04-30-2022 Hemoglobin (Bld) [Mass/Vol] 13.9 g/dL 11.8-15.4 [facility] Blood leukocytes automated c ount (number/volume)Ordered By: Ajit Pettit on 04-30-2022 WBC (Bld) [#/Vol] 19.7 10*3/uL 4.5-11.0 [facility] Body fluid albumin measureme nt (mass/volume)Ordered By: Ajit Pettit on 04-30-2022 Albumin (Body fld) [Mass/Vol] 4.1 g/dL 3.2-5.[address] [facility] [address] biopsyOrdered By: Ajit corrales on 04-30-2022 Transferrin [Mass/Vol] 352 mg/dL 180-380 [facility] Cholesterol [Mass/volume] in Serum or PlasmaOrdered By: Ajit Pettit on 04-30-2022 Cholesterol [Mass/Vol] 260 mg/dL 140-200 [facility] Comment on above: Chol less than 200 m g/dl low risk Chol 201-239 mg/dl borderline risk Chol 240 mg/dl and greater high risk Chol less than 200 m g/dl low riskChol 201-239 mg/dl borderline riskChol 240 mg/dl and greater high risk Cholesterol in LDL Calc [Mas s/Vol]Ordered By: Ajit Pettit on 04-30-2022 Cholesterol in LDL [Mass/Vol] 134 mg/dL 0-100 [facility] Comment on above: LDL ATP III [...] 04-30-2022 Cholesterol in VLDL [Mass/Vol] 68 mg/dL [facility] Creatinine and Glomerular fi ltration rate.predicted panel (S/P/Bld)Ordered By: Ajit Pettit on 04-30-2022 Creatinine [Mass/Vol] 0.56 mg/dL 0.44-1.03 [facility] Eosinophils Auto (Bld) [#/Vo l]Ordered By: Ajit Pettit on 04-30-2022 Eosinophils (Bld) [#/Vol] 0.2 10*3/uL 0.0-0.45 [facility] Eosinophils/100 WBC Auto (Bl d)Ordered By: Ajit Pettit on 04-30-2022 Eosinophils/100 WBC (Bld) 1.0 % . [facility] Erythrocyte distribution wid th Auto (RBC) [Ratio]Ordered By: Ajit Pettit on 04-30-2022 Erythrocyte distribution width (RBC) [Ratio] 13.5 % 11.9-15.3 [facility] Estimated glomerular filtrat ion rate (GFR) non- AmericanOrdered By: Ajit Pettit on 04-30-2022 GFR/1.73 sq M.predicted among non-blacks MDRD (S/P/Bld) [Vol rate/Area] > 60 mL/Min [facility] Globulin Calc (S) [Mass/Vol] Ordered By: Ajit Pettit on 04-30-2022 Globulin (S) [Mass/Vol] 2.9 g/dL [facility] Hematocrit Auto (Bld) [Volum e fraction]Ordered By: Ajit Pettit on 04-30-2022 Hematocrit (Bld) [Volume fraction] 42.9 % 34.0-46.4 [facility] Iron [Mass/volume] in Serum or PlasmaOrdered By: Ajit Pettit on 04-30-2022 Iron [Mass/Vol] 51 ug/dL 40-150 [facility] Iron binding capacity [Mass/ volume] in Serum or PlasmaOrdered By: Ajit Pettit on 04-30-2022 Iron binding capacity [Mass/Vol] 493 ug/dL 255-450 [facility] Iron saturation [Mass Fracti on] in Serum or PlasmaOrdered By: Ajit Pettit on 04-30-2022 Iron saturation [Mass fraction] 10.0 % 20-50 [facility] - Chemistry and C hemistry - challengeOrdered By: Ajit Pettit on 04-30-2022 Cobalamin (Vitamin B12) [Mass/Vol] 472 pg/mL 180-914 [facility] - Hematology and Cell countsOrdered By: Ajit Pettit on 04-30-2022 Nucleated RBC/100 WBC (Bld) [Ratio] 0.2 % 0-0.5 [facility] Lymphocytes Auto (Bld) [#/Vo l]Ordered By: Ajit Pettit on 04-30-2022 Lymphocytes (Bld) [#/Vol] 4.1 10*3/uL 1.00-4.8 [facility] Lymphocytes/100 WBC Auto (Bl d)Ordered By: Ajit Pettit on 04-30-2022 Lymphocytes/100 WBC (Bld) 20.8 % . [facility] MCH Auto (RBC) [Entitic mass ]Ordered By: Ajit Pettit on 04-30-2022 MCH (RBC) [Entitic mass] 30.0 pg 24.7-34.3 [facility] MCHC Auto (RBC) [Mass/Vol]Or dered By: Ajit Pettit on 04-30-2022 MCHC (RBC) [Mass/Vol] 32.4 g/dL 32.0-35.0 [facility] MCV Auto (RBC) [Entitic vol] Ordered By: Ajit Pettit on 04-30-2022 MCV (RBC) [Entitic vol] 92.7 fL 80-100 [facility] Monocytes Auto (Bld) [#/Vol] Ordered By: Ajit Pettit on 04-30-2022 Monocytes (Bld) [#/Vol] 1.3 10*3/uL 0.0-0.8 [facility] Monocytes/100 WBC Auto (Bld) Ordered By: Ajit Pettit on 04-30-2022 Monocytes/100 WBC (Bld) 6.8 % . [facility] Neutrophils Auto (Bld) [#/Vo l]Ordered By: Ajit Pettit on 04-30-2022 Neutrophils (Bld) [#/Vol] 13.9 10*3/uL 1.8-7.7 [facility] Neutrophils/100 WBC Auto (Bl d)Ordered By: Ajit Pettit on 04-30-2022 Neutrophils/100 WBC (Bld) 70.5 % . [facility] No Panel InformationOrdered By: Ajit Pettit on 04-30-2022 25-Hydroxy Vitamin D Total 19.9 ng/mL 30-100 [facility] Comment on above: VITAMIN D STATUS [...] 96(7):1911-30. Estimated GFR () > 60 mL/Min [facility] Comment on above: GFR estimated refere nce range: According to KDOQI guidelines, <60 ml/min/1.73m2 is sufficient to diagnose a patient with chronic kidney disease. Pharmacy Creatinine Clearance (Chem N/A [facility] Valproic Acid (Depakene) Level 59.8 ug/mL 50.0-100.0 [facility] Comment on above: Last dose: - Platelet mean volume Auto (B ld) [Entitic vol]Ordered By: Ajit Pettit on 04-30-2022 Platelet mean volume (Bld) [Entitic vol] 8.7 fL 6.3-10.7 [facility] Platelets Auto (Bld) [#/Vol] Ordered By: Ajit Pettit on 04-30-2022 Platelets (Bld) [#/Vol] 257 10*3/uL 150-450 [facility] Protein [Mass/volume] in Ser um or PlasmaOrdered By: Ajit Pettit on 04-30-2022 Protein [Mass/Vol] 7.0 g/dL 6.1-7.9 [facility] RBC Auto (Bld) [#/Vol]Ordere d By: Ajit Pettit on 04-30-2022 RBC (Bld) [#/Vol] 4.62 10*6/uL 3.60-5.00 [facility] Serum or plasma alanine george otransferase measurement without P-5'-P (enzymatic activiOrdered By: Ajit Pettit on 04-30-2022 ALT No additional P-5'-P [Catalytic activity/Vol] 20 U/L 10-60 [facility] Serum or plasma albumin/glob ulin mass ratioOrdered By: Ajit Pettit on 04-30-2022 Albumin/Globulin [Mass ratio] 1.4 {ratio} [facility] Serum or plasma alkaline lalo sphatase measurement (enzymatic activity/volume)Ordered By: Ajit Pettit on 04-30-2022 ALP [Catalytic activity/Vol] 54 U/L 32-92 [facility] Serum or plasma aspartate am inotransferase measurement (enzymatic activity/volume)Ordered By: Ajit Pettit on 04-30-2022 AST [Catalytic activity/Vol] 22 U/L 10-42 [facility] Serum or plasma calcium ashwini urement (mass/volume)Ordered By: Ajit Pettit on 04-30-2022 Calcium [Mass/Vol] 9.4 mg/dL 8.2-10.2 [facility] Serum or plasma chloride jett surement (moles/volume)Ordered By: Ajit Pettit on 04-30-2022 Chloride [Moles/Vol] 102 mmol/L 95-114 [facility] Serum or plasma glucose ashwini urement (mass/volume)Ordered By: Ajit Pettit on 04-30-2022 Glucose [Mass/Vol] 115 mg/dL 70-100 [facility] Comment on above: ADA recommended refe [...] Cholesterol in HDL [Mass/Vol] 57 mg/dL 35-85 [facility] Comment on above: HDL CHOL ATP-III CLA SSIFICATION Cardiovascular Risk HDL > or equal to 60 mg/dL LOW HDL < 40 mg/dL HIGH HDL CHOL ATP-III CLA SSIFICATION Cardiovascular RiskHDL > or equal to 60 mg/dL LOWHDL < 40 mg/dL HIGH Serum or plasma potassium me asurement (moles/volume)Ordered By: Ajit Pettit on 04-30-2022 Potassium [Moles/Vol] 4.8 mmol/L 3.5-5.1 [facility] Serum or plasma sodium measu rement (moles/volume)Ordered By: Ajit Pettit on 04-30-2022 Sodium [Moles/Vol] 135 mmol/L 136-146 [facility] Serum or plasma total biliru bin measurement (mass/volume)Ordered By: Ajit Pettit on 04-30-2022 Bilirubin [Mass/Vol] 0.2 mg/dL 0.3-1.2 [facility] Serum or plasma total carbon dioxide measurement (moles/volume)Ordered By: Ajit Pettit on 04-30-2022 CO2 [Moles/Vol] 24.2 mmol/L 22.0-30.0 [facility] Serum or plasma total choles terol/high density lipoprotein (HDL) cholesterol mass ratOrdered By: Ajit Pettit on 04-30-2022 Cholesterol.total/Suellen sterol in HDL [Mass ratio] 4.6 {ratio} <5.0 [facility] Serum or plasma urea nitroge n measurement (mass/volume)Ordered By: Ajit Pettit on 04-30-2022 Urea nitrogen [Mass/Vol] 12 mg/dL 9-23 [facility] TSH DL <= 0.005 mIU/L QnOrde red By: Ajit Pettit on 04-30-2022 TSH Qn 2.89 m[IU]/L 0.45-5.33 [facility] Triglyceride [Mass/volume] i n Serum or PlasmaOrdered By: Ajit Pettit on 04-30-2022 Triglyceride [Mass/Vol] 344 mg/dL 35-149 [facility] Comment on above: TRIG ATP III [...] 01-21-2021 Basophils (Bld) [#/Vol] 0.1 10*3/uL 0.0-0.2 [facility] Basophils/100 WBC Auto (Bld) on 01-21-2021 Basophils/100 WBC (Bld) 1.0 % F [facility] Blood hemoglobin measurement (mass/volume)on 01-21-2021 Hemoglobin (Bld) [Mass/Vol] 13.0 g/dL 11.8-15.4 [facility] Blood leukocytes automated c ount (number/volume)on 01-21-2021 WBC (Bld) [#/Vol] 13.2 10*3/uL 4.5-11.0 [facility] Body fluid albumin measureme nt (mass/volume)on 01-21-2021 Albumin (Body fld) [Mass/Vol] 3.7 g/dL 3.2-5.5 [facility] Creatinine and Glomerular fi ltration rate.predicted panel (S/P/Bld)on 01-21-2021 Creatinine [Mass/Vol] 0.67 mg/dL 0.44-1.03 [facility] Eosinophils Auto (Bld) [#/Vo l]on 01-21-2021 Eosinophils (Bld) [#/Vol] 0.1 10*3/uL 0.0-0.45 [facility] Eosinophils/100 WBC Auto (Bl d)on 01-21-2021 Eosinophils/100 WBC (Bld) 0.8 % [facility] Erythrocyte distribution wid th Auto (RBC) [Ratio]on 01-21-2021 Erythrocyte distribution width (RBC) [Ratio] 13.1 % 11.9-15.3 [facility] Estimated glomerular filtrat ion rate (GFR) non- Americanon 01-21-2021 GFR/1.73 sq M.predicted among non-blacks MDRD (S/P/Bld) [Vol rate/Area] > 60 mL/Min [facility] Globulin Calc (S) [Mass/Vol] on 01-21-2021 Globulin (S) [Mass/Vol] 2.7 g/dL [facility] Hematocrit Auto (Bld) [Volum e fraction]on 01-21-2021 Hematocrit (Bld) [Volume fraction] 38.1 % 34.0-46.4 [facility] Laboratory - Chemistry and C hemistry - challengeon 01-21-2021 Cobalamin (Vitamin B12) [Mass/Vol] 341 pg/mL 180-914 [facility] - Hematology and Cell countson 01-21-2021 Nucleated RBC/100 WBC (Bld) [Ratio] 0.2 % 0-0.5 [facility] Lymphocytes Auto (Bld) [#/Vo l]on 01-21-2021 Lymphocytes (Bld) [#/Vol] 3.9 10*3/uL 1.00-4.8 [facility] Lymphocytes/100 WBC Auto (Bl d)on 01-21-2021 Lymphocytes/100 WBC (Bld) 29.4 % [facility] MCH Auto (RBC) [Entitic mass ]on 01-21-2021 MCH (RBC) [Entitic mass] 30.6 pg 24.7-34.3 [facility] MCHC Auto (RBC) [Mass/Vol]on 01-21-2021 MCHC (RBC) [Mass/Vol] 34.1 g/dL 32.0-35.0 [facility] MCV Auto (RBC) [Entitic vol] on 01-21-2021 MCV (RBC) [Entitic vol] 89.6 fL 80-100 [facility] Monocytes Auto (Bld) [#/Vol] on 01-21-2021 Monocytes (Bld) [#/Vol] 1.1 10*3/uL 0.0-0.8 [facility] Monocytes/100 WBC Auto (Bld) on 01-21-2021 Monocytes/100 WBC (Bld) 8.6 % [facility] Neutrophils Auto (Bld) [#/Vo l]on 01-21-2021 Neutrophils (Bld) [#/Vol] 8.0 10*3/uL 1.8-7.7 [facility] Neutrophils/100 WBC Auto (Bl d)on 01-21-2021 Neutrophils/100 WBC (Bld) 60.2 % [facility] No Panel Informationon 01-21 25-Hydroxy Vitamin D Total 25.5 ng/mL 30-100 [facility] Comment on above: VITAMIN D STATUS 25( [place])VITAMIN D RANGE (ng/mL) Deficient <20 Insufficient 20 to <30Sufficient 30 to 100Reference: Jovanni MF,Dominique NC, Gillian NINA, et al. Evaluation,treatment, and prevention of vitamin D deficiency; an Endocrine Society clinical practice guideline. JCEM. 2010; 96(7):1911-30. Estimated GFR () > 60 mL/Min [facility] Comment on above: GFR estimated refere nce range: According to KDOQI guidelines, <60 ml/min/1.73m2 is sufficient to diagnose a patient with chronic kidney disease. Pharmacy Creatinine Clearance (Chem N/A [facility] Valproic Acid (Depakene) Level 74.3 ug/mL 50.0-100.0 [facility] Comment on above: Last dose: - Platelet mean volume Auto (B ld) [Entitic vol]on 01-21-2021 Platelet mean volume (Bld) [Entitic vol] 9.1 fL 6.3-10.7 [facility] Platelets Auto (Bld) [#/Vol] on 01-21-2021 Platelets (Bld) [#/Vol] 261 10*3/uL 150-450 [facility] Protein [Mass/volume] in Ser um or Plasmaon 01-21-2021 Protein [Mass/Vol] 6.4 g/dL 6.1-7.9 [facility] RBC Auto (Bld) [#/Vol]on RBC (Bld) [#/Vol] 4.25 10*6/uL 3.60-5.00 [facility] Serum or plasma alanine george otransferase measurement without P-5'-P (enzymatic activion 01-21-2021 ALT No additional P-5'-P [Catalytic activity/Vol] 14 U/L 10-60 [facility] Serum or plasma albumin/glob ulin mass ratioon 01-21-2021 Albumin/Globulin [Mass ratio] 1.4 {ratio} [facility] Serum or plasma alkaline lalo sphatase measurement (enzymatic activity/volume)on 01-21-2021 ALP [Catalytic activity/Vol] 50 U/L 32-92 [facility] Serum or plasma aspartate am inotransferase measurement (enzymatic activity/volume)on 01-21-2021 AST [Catalytic activity/Vol] 17 U/L 10-42 [facility] Serum or plasma calcium ashwini urement (mass/volume)on 01-21-2021 Calcium [Mass/Vol] 9.5 mg/dL 8.2-10.2 [facility] Serum or plasma chloride jett surement (moles/volume)on 01-21-2021 Chloride [Moles/Vol] 96 mmol/L 95-114 [facility] Serum or plasma glucose ashwini urement (mass/volume)on 01-21-2021 Glucose [Mass/Vol] 117 mg/dL 70-100 [facility] Comment on above: ADA recommended refe rence rangeRandom Glucose Reference Range is dependent on time and content of last meal. Glucose of more than 200 mg/dL in a nonstressed, ambulatory subject supports the diagnosis of Diabetes Mellitus. Serum or plasma potassium me asurement (moles/volume)on 01-21-2021 Potassium [Moles/Vol] 4.3 mmol/L 3.5-5.1 [facility] Serum or plasma sodium measu rement (moles/volume)on 01-21-2021 Sodium [Moles/Vol] 132 mmol/L 136-146 [facility] Serum or plasma total biliru bin measurement (mass/volume)on 01-21-2021 Bilirubin [Mass/Vol] 0.3 mg/dL 0.3-1.2 [facility] Serum or plasma total carbon dioxide measurement (moles/volume)on 01-21-2021 CO2 [Moles/Vol] 23.6 mmol/L 22.0-30.0 [facility] Serum or plasma urea nitroge n measurement (mass/volume)on 01-21-2021 Urea nitrogen [Mass/Vol] 13 mg/dL 9-23 [facility] Albumin [Mass/volume] in Ser um or Plasmaon 11-05-2020 Albumin [Mass/Vol] 4.4 g/dL 3.2-5.5 [facility] Automated basophil %on 11-05 Basophils/100 WBC (Bld) 0.7 % [facility] Automated basophil counton 0 11-05-2020 Basophils (Bld) [#/Vol] 0.1 10*3/uL 0.0-0.2 [facility] Automated blood lymphocyte c ount (number/volume)on 11-05-2020 Lymphocytes (Bld) [#/Vol] 3.5 10*3/uL 1.00-4.8 [facility] Automated blood lymphocyte c ount as percentage of total leukocyteson 11-05-2020 Lymphocytes/100 WBC (Bld) 26.0 % [facility] Automated blood monocyte cou nton 11-05-2020 Monocytes (Bld) [#/Vol] 1.2 10*3/uL 0.0-0.8 [facility] Automated blood platelet cou nt (count/volume)on 11-05-2020 Platelets (Bld) [#/Vol] 317 10*3/uL 150-450 [facility] Automated blood platelet jett n volume measurementon 11-05-2020 Platelet mean volume (Bld) [Entitic vol] 8.2 fL 6.3-10.7 [facility] Automated eosinophil %on Eosinophils/100 WBC (Bld) 0.5 % [facility] Automated eosinophil counton 11-05-2020 Eosinophils (Bld) [#/Vol] 0.1 10*3/uL 0.0-0.45 [facility] Automated erythrocyte distri bution width ratioon 11-05-2020 Erythrocyte distribution width (RBC) [Ratio] 13.0 % 11.9-15.3 [facility] Automated erythrocyte mean c orpuscular hemoglobin (mass per erythrocyte)on 11-05-2020 MCH (RBC) [Entitic mass] 30.2 pg 24.7-34.3 [facility] Automated erythrocyte mean c orpuscular hemoglobin concentration measurement (mass/volon 11-05-2020 MCHC (RBC) [Mass/Vol] 33.9 g/dL 32.0-35.0 [facility] Automated erythrocyte mean c orpuscular volumeon 11-05-2020 MCV (RBC) [Entitic vol] 89.1 fL 80-100 [facility] Automated monocyte %on 11-05 Monocytes/100 WBC (Bld) 8.8 % [facility] Automated neutrophil %on Neutrophils/100 WBC (Bld) 64.0 % [facility] Blood erythrocytes automated count (number/volume)on 11-05-2020 RBC (Bld) [#/Vol] 4.92 10*6/uL 3.60-5.00 [facility] Blood hemoglobin measurement (mass/volume)on 11-05-2020 Hemoglobin (Bld) [Mass/Vol] 14.9 g/dL 11.8-15.4 [facility] Blood leukocytes automated c ount (number/volume)on 11-05-2020 WBC (Bld) [#/Vol] 13.4 10*3/uL 4.5-11.0 [facility] Blood neutrophil count by au tomated method (number/volume)on 11-05-2020 Neutrophils (Bld) [#/Vol] 8.6 10*3/uL 1.8-7.7 [facility] Estimated glomerular filtrat ion rate (GFR) non- Americanon 11-05-2020 GFR/1.73 sq M predicted among non-blacks MDRD (S/P/Bld) [Vol rate/Area] mL/min/{1.73_m2} [facility] Hematocrit [Volume Fraction] of Blood by Automated counton 11-05-2020 Hematocrit (Bld) [Volume fraction] 43.8 % 34.0-46.4 [facility] Otheron 11-05-2020 GFR/1.73 sq M.predicted MDRD (S/P/Bld) [Vol rate/Area] mL/min/{1.73_m2} [facility] Comment on above: GFR estimated refere nce range: According to KDOQI guidelines, <60 ml/min/1.73m2 is sufficient to diagnose a patient with chronic kidney disease. Nucleated RBC/100 WBC (Bld) [Ratio] 0.2 % 0-0.5 [facility] Creatinine Clearance (Chem N/A [facility] Protein [Mass/volume] in Ser um or Plasmaon 11-05-2020 Protein [Mass/Vol] 7.2 g/dL 6.1-7.9 [facility] Serum globulin measurement b y calculation (mass/volume)on 11-05-2020 Globulin (S) [Mass/Vol] 2.8 g/dL [facility] Serum glutamate decarboxylas e 65 antibody assay (units/volume)on 11-05-2020 Glutamate decarboxylase 65 Ab Qn (S) <5.0 U/mL [facility] Comment on above: Performed at: - [facility] [id number] Director: Ana Lee MD, Phone: [phone] Serum nuclear antibody titer on 11-05-2020 Nuclear Ab (S) [Titer] Negative Fi [facility] Comment on above: Negative <1:80 Borde rline 1:80 Positive >1:80Performed at: [id number] [id number] Director: Daniel Wen PhD, Phone: [phone] Nuclear Ab (S) [Titer] Negative Fi [facility] Comment on above: Negative <1:80 Borde rline 1:80 Positive >1:80Performed at: [facility] [id number] Director: Daniel Wen PhD, Phone: [phone] Serum or plasma alanine george otransferase measurement without P-5'-P (enzymatic activion 11-05-2020 ALT No additional P-5'-P [Catalytic activity/Vol] 22 U/L 10-60 [facility] Serum or plasma albumin/glob ulin mass ratioon 11-05-2020 Albumin/Globulin [Mass ratio] 1.6 {ratio} [facility] Serum or plasma alkaline lalo sphatase measurement (enzymatic activity/volume)on 11-05-2020 ALP [Catalytic activity/Vol] 60 U/L 32-92 [facility] Serum or plasma aspartate am inotransferase measurement (enzymatic activity/volume)on 11-05-2020 AST [Catalytic activity/Vol] 23 U/L 10-42 [facility] Serum or plasma calcium ashwini urement (mass/volume)on 11-05-2020 Calcium [Mass/Vol] 9.6 mg/dL 8.2-10.2 [facility] Serum or plasma chloride jett surement (moles/volume)on 11-05-2020 Chloride [Moles/Vol] 93 mmol/L 95-114 [facility] Serum or plasma creatinine m easurement with calculation of estimated glomerular filtron 11-05-2020 Creatinine [Mass/Vol] 0.62 mg/dL 0.44-1.03 [facility] Serum or plasma glucose ashwini urement (mass/volume)on 11-05-2020 Glucose [Mass/Vol] 82 mg/dL 70-100 [facility] Comment on above: ADA recommended refe rence rangeRandom Glucose Reference Range is dependent on time and content of last meal. Glucose of more than 200 mg/dL in a nonstressed, ambulatory subject supports the diagnosis of Diabetes Mellitus. Serum or plasma potassium me asurement (moles/volume)on 11-05-2020 Potassium [Moles/Vol] 4.3 mmol/L 3.5-5.1 [facility] Serum or plasma sodium measu rement (moles/volume)on 11-05-2020 Sodium [Moles/Vol] 128 mmol/L 136-146 [facility] Serum or plasma total biliru bin measurement (mass/volume)on 11-05-2020 Bilirubin [Mass/Vol] 0.6 mg/dL 0.3-1.2 [facility] Serum or plasma total carbon dioxide measurement (moles/volume)on 11-05-2020 CO2 [Moles/Vol] 22.8 mmol/L 22.0-30.0 [facility] Serum or plasma urea nitroge n measurement (mass/volume)on 11-05-2020 Urea nitrogen [Mass/Vol] 10 mg/dL 9-23 [facility] Automated basophil %on 10-22 Basophils/100 WBC (Bld) 0.6 % [facility] Automated basophil counton 0 10-22-2020 Basophils (Bld) [#/Vol] 0.1 10*3/uL 0.0-0.2 [facility] Automated blood lymphocyte c ount (number/volume)on 10-22-2020 Lymphocytes (Bld) [#/Vol] 2.8 10*3/uL 1.00-4.8 [facility] Automated blood lymphocyte c ount as percentage of total leukocyteson 10-22-2020 Lymphocytes/100 WBC (Bld) 23.6 % [facility] Automated blood monocyte cou nton 10-22-2020 Monocytes (Bld) [#/Vol] 1.0 10*3/uL 0.0-0.8 [facility] Automated blood platelet cou nt (count/volume)on 10-22-2020 Platelets (Bld) [#/Vol] 292 10*3/uL 150-450 [facility] Automated blood platelet jett n volume measurementon 10-22-2020 Platelet mean volume (Bld) [Entitic vol] 9.4 fL 6.3-10.7 [facility] Automated eosinophil %on Eosinophils/100 WBC (Bld) 0.5 % [facility] Automated eosinophil counton 10-22-2020 Eosinophils (Bld) [#/Vol] 0.1 10*3/uL 0.0-0.45 [facility] Automated erythrocyte distri bution width ratioon 10-22-2020 Erythrocyte distribution width (RBC) [Ratio] 12.8 % 11.9-15.3 [facility] Automated erythrocyte mean c orpuscular hemoglobin (mass per erythrocyte)on 10-22-2020 MCH (RBC) [Entitic mass] 29.5 pg 24.7-34.3 [facility] Automated erythrocyte mean c orpuscular hemoglobin concentration measurement (mass/volon 10-22-2020 MCHC (RBC) [Mass/Vol] 32.9 g/dL 32.0-35.0 [facility] Automated erythrocyte mean c orpuscular volumeon 10-22-2020 MCV (RBC) [Entitic vol] 89.6 fL 80-100 [facility] Automated monocyte %on 10-22 Monocytes/100 WBC (Bld) 8.7 % [facility] Automated neutrophil %on Neutrophils/100 WBC (Bld) 66.6 % [facility] Blood erythrocytes automated count (number/volume)on 10-22-2020 RBC (Bld) [#/Vol] 4.90 10*6/uL 3.60-5.00 [facility] Blood hemoglobin measurement (mass/volume)on 10-22-2020 Hemoglobin (Bld) [Mass/Vol] 14.5 g/dL 11.8-15.4 [facility] Blood leukocytes automated c ount (number/volume)on 10-22-2020 WBC (Bld) [#/Vol] 12.1 10*3/uL 3.8-11.6 [facility] Blood neutrophil count by au tomated method (number/volume)on 10-22-2020 Neutrophils (Bld) [#/Vol] 8.0 10*3/uL 1.8-7.7 [facility] Body fluid albumin measureme nt (mass/volume)on 10-22-2020 Albumin (Body fld) [Mass/Vol] 4.2 g/dL 3.2-5.5 [facility] Estimated glomerular filtrat ion rate (GFR) non- Americanon 10-22-2020 GFR/1.73 sq M predicted among non-blacks MDRD (S/P/Bld) [Vol rate/Area] mL/min/{1.73_m2} [facility] Hematocrit [Volume Fraction] of Blood by Automated counton 10-22-2020 Hematocrit (Bld) [Volume fraction] 43.9 % 34.0-46.4 [facility] Hematologyon 10-22-2020 Platelets (Bld) [#/Vol] Normal Normal [facility] Otheron 10-22-2020 25-Hydroxy Vitamin D Total 13.3 ng/mL 30-100 [facility] Comment on above: VITAMIN D STATUS 25( [place])VITAMIN D RANGE (ng/mL) Deficient <20 Insufficient 20 to <30Sufficient 30 to 100Reference: Jovanni MF,Dominique NC, Gillian NINA, et al. Evaluation,treatment, and prevention of vitamin D deficiency; an Endocrine Society clinical practice guideline. JCEM. 2010; 96(7):1911-30. Cobalamin (Vitamin B12) [Mass/Vol] 438 pg/mL 180-914 [facility] GFR/1.73 sq M.predicted MDRD (S/P/Bld) [Vol rate/Area] mL/min/{1.73_m2} [facility] Comment on above: GFR estimated refere nce range: According to KDOQI guidelines, <60 ml/min/1.73m2 is sufficient to diagnose a patient with chronic kidney disease. Nucleated RBC/100 WBC (Bld) [Ratio] 0.0 % 0-0.5 [facility] Creatinine Clearance (Chem N/A [facility] Platelet Morphology Comment Normal Normal [facility] Valproic Acid (Depakene) Level 108.9 ug/mL 50.0-100.0 [facility] Comment on above: Last dose: - Protein [Mass/volume] in Ser um or Plasmaon 10-22-2020 Protein [Mass/Vol] 7.1 g/dL 6.1-7.9 [facility] RBC morphologyon 10-22-2020 RBC morphology finding Nom (Bld) Normal [facility] Serum globulin measurement b y calculation (mass/volume)on 10-22-2020 Globulin (S) [Mass/Vol] 2.9 g/dL [facility] Serum or plasma alanine george otransferase measurement without P-5'-P (enzymatic activion 10-22-2020 ALT No additional P-5'-P [Catalytic activity/Vol] 13 U/L 10-60 [facility] Serum or plasma albumin/glob ulin mass ratioon 10-22-2020 Albumin/Globulin [Mass ratio] 1.4 {ratio} [facility] Serum or plasma alkaline lalo sphatase measurement (enzymatic activity/volume)on 10-22-2020 ALP [Catalytic activity/Vol] 53 U/L 32-92 [facility] Serum or plasma aspartate am inotransferase measurement (enzymatic activity/volume)on 10-22-2020 AST [Catalytic activity/Vol] 15 U/L 10-42 [facility] Serum or plasma calcium ashwini urement (mass/volume)on 10-22-2020 Calcium [Mass/Vol] 9.6 mg/dL 8.2-10.2 [facility] Serum or plasma chloride jett surement (moles/volume)on 10-22-2020 Chloride [Moles/Vol] 96 mmol/L 95-114 [facility] Serum or plasma creatinine m easurement with calculation of estimated glomerular filtron 10-22-2020 Creatinine [Mass/Vol] 0.54 mg/dL 0.44-1.03 [facility] Serum or plasma glucose ashwini urement (mass/volume)on 10-22-2020 Glucose [Mass/Vol] 96 mg/dL 70-100 [facility] Comment on above: ADA recommended refe rence rangeRandom Glucose Reference Range is dependent on time and content of last meal. Glucose of more than 200 mg/dL in a nonstressed, ambulatory subject supports the diagnosis of Diabetes Mellitus. Serum or plasma potassium me asurement (moles/volume)on 10-22-2020 Potassium [Moles/Vol] 4.7 mmol/L 3.5-5.1 [facility] Serum or plasma sodium measu rement (moles/volume)on 10-22-2020 Sodium [Moles/Vol] 130 mmol/L 136-146 [facility] Serum or plasma total biliru bin measurement (mass/volume)on 10-22-2020 Bilirubin [Mass/Vol] 0.3 mg/dL 0.3-1.2 [facility] Serum or plasma total carbon dioxide measurement (moles/volume)on 10-22-2020 CO2 [Moles/Vol] 22.5 mmol/L 22.0-30.0 [facility] Serum or plasma urea nitroge n measurement (mass/volume)on 10-22-2020 Urea nitrogen [Mass/Vol] 5 mg/dL 9-23 [facility] Automated basophil %on 09-23 Basophils/100 WBC (Bld) 0.7 % [facility] Automated basophil counton 1 11-24-2019 Basophils (Bld) [#/Vol] 0.1 10*3/uL 0.0-0.2 [facility] Automated blood lymphocyte c ount (number/volume)on 09-23-2020 Lymphocytes (Bld) [#/Vol] 3.3 10*3/uL 1.00-4.8 [facility] Automated blood lymphocyte c ount as percentage of total leukocyteson 09-23-2020 Lymphocytes/100 WBC (Bld) 27.3 % [facility] Automated blood monocyte cou nton 09-23-2020 Monocytes (Bld) [#/Vol] 1.3 10*3/uL 0.0-0.8 [facility] Automated blood platelet cou nt (count/volume)on 09-23-2020 Platelets (Bld) [#/Vol] 299 10*3/uL 150-450 [facility] Automated blood platelet jett n volume measurementon 09-23-2020 Platelet mean volume (Bld) [Entitic vol] 8.3 fL 6.3-10.7 [facility] Automated eosinophil %on Eosinophils/100 WBC (Bld) 0.7 % [facility] Automated eosinophil counton 09-23-2020 Eosinophils (Bld) [#/Vol] 0.1 10*3/uL 0.0-0.45 [facility] Automated erythrocyte distri bution width ratioon 09-23-2020 Erythrocyte distribution width (RBC) [Ratio] 12.8 % 11.9-15.3 [facility] Automated erythrocyte mean c orpuscular hemoglobin (mass per erythrocyte)on 09-23-2020 MCH (RBC) [Entitic mass] 29.8 pg 24.7-34.3 [facility] Automated erythrocyte mean c orpuscular hemoglobin concentration measurement (mass/volon 09-23-2020 MCHC (RBC) [Mass/Vol] 33.4 g/dL 32.0-35.0 [facility] Automated erythrocyte mean c orpuscular volumeon 09-23-2020 MCV (RBC) [Entitic vol] 89.3 fL 80-100 [facility] Automated monocyte %on 09-23 Monocytes/100 WBC (Bld) 10.8 % [facility] Automated neutrophil %on Neutrophils/100 WBC (Bld) 60.5 % [facility] Blood erythrocytes automated count (number/volume)on 09-23-2020 RBC (Bld) [#/Vol] 4.72 10*6/uL 3.60-5.00 [facility] Blood hemoglobin measurement (mass/volume)on 09-23-2020 Hemoglobin (Bld) [Mass/Vol] 14.1 g/dL 11.8-15.4 [facility] Blood leukocytes automated c ount (number/volume)on 09-23-2020 WBC (Bld) [#/Vol] 11.9 10*3/uL 3.8-11.6 [facility] Blood neutrophil count by au tomated method (number/volume)on 09-23-2020 Neutrophils (Bld) [#/Vol] 7.2 10*3/uL 1.8-7.7 [facility] Body fluid albumin measureme nt (mass/volume)on 09-23-2020 Albumin (Body fld) [Mass/Vol] 3.9 g/dL 3.2-5.5 [facility] Estimated glomerular filtrat ion rate (GFR) non- Americanon 09-23-2020 GFR/1.73 sq M predicted among non-blacks MDRD (S/P/Bld) [Vol rate/Area] mL/min/{1.73_m2} [facility] Hematocrit [Volume Fraction] of Blood by Automated counton 09-23-2020 Hematocrit (Bld) [Volume fraction] 42.1 % 34.0-46.4 [facility] Otheron 09-23-2020 25-Hydroxy Vitamin D Total 17.0 ng/mL 30-100 [facility] Comment on above: VITAMIN D STATUS 25( [place])VITAMIN D RANGE (ng/mL) Deficient <20 Insufficient 20 to <30Sufficient 30 to 100Reference: Jovanni MF,Dominique NC, Gillian NINA, et al. Evaluation,treatment, and prevention of vitamin D deficiency; an Endocrine Society clinical practice guideline. JCEM. 2010; 96(7):1911-30. GFR/1.73 sq M.predicted MDRD (S/P/Bld) [Vol rate/Area] mL/min/{1.73_m2} [facility] Comment on above: GFR estimated refere nce range: According to KDOQI guidelines, <60 ml/min/1.73m2 is sufficient to diagnose a patient with chronic kidney disease. Nucleated RBC/100 WBC (Bld) [Ratio] 0.1 % 0-0.5 [facility] Creatinine Clearance (Chem N/A [facility] Valproic Acid (Depakene) Level 45.9 ug/mL 50.0-100.0 [facility] Comment on above: Last dose: - Protein [Mass/volume] in Ser um or Plasmaon 09-23-2020 Protein [Mass/Vol] 6.7 g/dL 6.1-7.9 [facility] Serum globulin measurement b y calculation (mass/volume)on 09-23-2020 Globulin (S) [Mass/Vol] 2.8 g/dL [facility] Serum or plasma alanine george otransferase measurement without P-5'-P (enzymatic activion 09-23-2020 ALT No additional P-5'-P [Catalytic activity/Vol] 15 U/L 10-60 [facility] Serum or plasma albumin/glob ulin mass ratioon 09-23-2020 Albumin/Globulin [Mass ratio] 1.4 {ratio} [facility] Serum or plasma alkaline lalo sphatase measurement (enzymatic activity/volume)on 09-23-2020 ALP [Catalytic activity/Vol] 52 U/L 32-92 [facility] Serum or plasma aspartate am inotransferase measurement (enzymatic activity/volume)on 09-23-2020 AST [Catalytic activity/Vol] 16 U/L 10-42 [facility] Serum or plasma calcium ashwini urement (mass/volume)on 09-23-2020 Calcium [Mass/Vol] 9.2 mg/dL 8.2-10.2 [facility] Serum or plasma chloride jett surement (moles/volume)on 09-23-2020 Chloride [Moles/Vol] 102 mmol/L 95-114 [facility] Serum or plasma creatinine m easurement with calculation of estimated glomerular filtron 09-23-2020 Creatinine [Mass/Vol] 0.67 mg/dL 0.44-1.03 [facility] Serum or plasma glucose ashwini urement (mass/volume)on 09-23-2020 Glucose [Mass/Vol] 122 mg/dL 70-100 [facility] Comment on above: ADA recommended refe rence rangeRandom Glucose Reference Range is dependent on time and content of last meal. Glucose of more than 200 mg/dL in a nonstressed, ambulatory subject supports the diagnosis of Diabetes Mellitus. Serum or plasma potassium me asurement (moles/volume)on 09-23-2020 Potassium [Moles/Vol] 4.8 mmol/L 3.5-5.1 [facility] Serum or plasma sodium measu rement (moles/volume)on 09-23-2020 Sodium [Moles/Vol] 136 mmol/L 136-146 [facility] Serum or plasma total biliru bin measurement (mass/volume)on 09-23-2020 Bilirubin [Mass/Vol] 0.2 mg/dL 0.3-1.2 [facility] Serum or plasma total carbon dioxide measurement (moles/volume)on 09-23-2020 CO2 [Moles/Vol] 23.0 mmol/L 22.0-30.0 [facility] Serum or plasma urea nitroge n measurement (mass/volume)on 09-23-2020 Urea nitrogen [Mass/Vol] 5 mg/dL 06-26 [facility] Lab - Other Lab Resultson [facility] - Other Lab Results [id number] C[facility] Summaryon 06-27-2019 Coding Summary CODING DATE: 019 [facility] STATUS: Home PAYOR: Medicaid HMO ADMIT [...] Piña Revised Date Saved: 06/27/2019 12:43 pm [facility] Provider Orderson 06-27-2019 Provider Orders [id number]#1.00[facility] Provider Orders [id number]#1.00[facility] .Auto Diff 1on 06-26-2019 Auto Henry % 9 % Normal 10-15 [facility] Comment on above: Performed By: #### 1 [id number] #### [facility] (DEFAULT) [address] [place] [address] Baso Abs# 0.0 x10 Normal 0.0-0.2 [facility] Comment on above: Performed By: #### 1 [id number] #### [facility] (DEFAULT) [address] [place] [address] Basophils/100 WBC (Bld) 0.3 % Normal 0.2-2.0 [facility] Comment on above: Performed By: #### 1 [id number] #### [facility] (DEFAULT) [address] [place] [address] Eos Abs# 0.0 x10 Normal 0.0-0.4 [facility] Comment on above: Performed By: #### 1 [id number] #### [facility] (DEFAULT) [address] [place] [address]562 Eosinophils/100 WBC (Bld) 0.4 % Low 0.9-4.0 [facility] Comment on above: Performed By: #### 1 [id number] #### [facility] (DEFAULT) [address] [place] [address] Lymphocytes (Bld) [#/Vol] 3.7 x10 High 1.3-2.9 [facility] Comment on above: Performed By: #### 1 [id number] #### [facility] (DEFAULT) [address] [place] [address] Lymphocytes/100 WBC (Bld) 29 % Normal 14-48 [facility] Comment on above: Performed By: #### 1 [id number] #### [facility] (DEFAULT) [address] [place] [address] Henry Abs# 1.2 x10 High 0.0-0.8 [facility] Comment on above: Performed By: #### 1 [id number] #### [facility] (DEFAULT) [address] [place] [address] 62295 Neut Abs# 7.7 x10 Normal 1.5-9.2 [facility] Comment on above: Performed By: #### 1 [id number] #### [facility] (DEFAULT) [address] [place] [address]246 Neutrophils/100 WBC (Bld) 61 % Normal 44-88 [facility] Comment on above: Performed By: #### 1 [id number] #### [facility] (DEFAULT) [address] [place] [address] 82004 CBC w/ Auto Diffon 9 Erythrocyte distribution width (RBC) [Ratio] 14.0 % Normal 11.5-15.0 [facility] Comment on above: Performed By: #### 1 [id number] #### [facility] (DEFAULT) [address] [place] [address]60 Hematocrit (Bld) [Volume fraction] 44.8 % High 33.7-40.4 [facility] Comment on above: Performed By: #### 1 [id number] #### [facility] (DEFAULT) [address] [place] [address]4625 Hemoglobin (Bld) [Mass/Vol] 15.1 g/dL Normal 11.3-15.9 [facility] Comment on above: Performed By: #### 1 [id number] #### [facility] (DEFAULT) [address] [place] [address] Man Diff? Auto Normal [facility] Comment on above: Performed By: #### 1 [id number], [id number] #### [facility] (DEFAULT) [address] [place] [address] 64834 MCH (RBC) [Entitic mass] 30 pg Normal 24-34 [facility] Comment on above: Performed By: #### 1 [id number], [id number] #### [facility] (DEFAULT) [address] [place] [address] 55016 MCHC (RBC) [Mass/Vol] 34 g/dL Normal 26-37 [facility] Comment on above: Performed By: #### 1 [id number] #### [facility] (DEFAULT) [address] [place] [address] 13314 MCV (RBC) [Entitic vol] 89 fL Normal 81-100 [facility] Comment on above: Performed By: #### 1 [id number] #### [facility] (DEFAULT) [address] [place] [address]807 Platelet mean volume (Bld) [Entitic vol] 9.5 fL Normal 6.3-10.2 [facility] Comment on above: Performed By: #### 1 [id number] #### [facility] (DEFAULT) [address] [place] [address] 12597 Platelets (Bld) [#/Vol] 301 x10 Normal 138-427 [facility] Comment on above: Performed By: #### 1 [id number], [id number] #### [facility] (DEFAULT) [address] [place] [id number] RBC (Bld) [#/Vol] 5.04 x10 Normal 3.70-5.30 [facility] Comment on above: Performed By: #### 1 [id number] #### [facility] (DEFAULT) [address] [place] [address] [id number] WBC (Bld) [#/Vol] 12.6 x10 [facility] Comment on above: Performed By: #### 1 [id number] #### [facility] (DEFAULT) [address] [place] [id number] Lab - Other Lab [facility] Lab - Other Lab Results [id number] 05-16-2019 Outside Records [id number] [id number] Vital Signs Date Time Vital Sign Value Performing Clinician Facility 04-16-2025 14:00-0400 Body height 166.37 cm Ajit Pettit NP-C Work Phone: [facility] 04-16-2025 14:00-0400 Body mass index (BMI) [Ratio] 24 kg/m2 Ajit Pettit COACH BUILDER-C Work Phone: [facility] 04-16-2025 14:00-0400 Body temperature 97.9 [degF] Ajit Pettit COACH BUILDER-C Work Phone: [facility] 04-16-2025 14:00-0400 Body weight 66.67 kg Ajit Spasic COACH BUILDER-C Work Phone: [facility] 04-16-2025 14:00-0400 Diastolic blood pressure 84 mm[Hg] Ajit Spasic COACH BUILDER[employer]C Work Phone: [facility] 04-16-2025 14:00-0400 Heart rate 82 /min Ajit Spasic COACH BUILDER-C Work Phone: [facility] 04-16-2025 14:00-0400 Systolic blood pressure 133 mm[Hg] Ajit Spasic COACH BUILDER-C Work Phone: [facility] 04-04-2025 09:49-0400 Body weight 71.66 kg Ajit Spasic COACH BUILDER-C Work Phone: [facility] 04-04-2025 09:49-0400 Diastolic blood pressure 82 mm[Hg] Ajit Spasic COACH BUILDER-C Work Phone: [facility] 04-04-2025 09:49-0400 Heart rate 76 /min Ajit Spasic COACH BUILDER-C Work Phone: [facility] 04-04-2025 09:49-0400 Respiratory rate 20 /min Ajit Spasic COACH BUILDER-C Work Phone: [facility] 04-04-2025 09:49-0400 SaO2% (BldA) [Mass fraction] 100 % Ajit Spasic COACH BUILDER-C Work Phone: [facility] 04-04-2025 09:49-0400 Systolic blood pressure 124 mm[Hg] Ajit Spasic COACH BUILDER-C Work Phone: [facility] 03-20-2025 08:48-0400 Body height 166.37 cm Ajit Spasic COACH BUILDER[employer]C Work Phone: [facility] 03-20-2025 08:48-0400 Body mass index (BMI) [Ratio] 25.4 kg/m2 Ajit Spasic COACH BUILDER[employer]C Work Phone: [facility] 03-20-2025 08:48-0400 Body weight 70.3 kg Ajit Spasic COACH BUILDER-C Work Phone: [facility] 03-14-2025 08:50-0400 Body height 166.37 cm Ajit Spasic COACH BUILDER[employer]C Work Phone: [facility] 03-14-2025 08:50-0400 Body mass index (BMI) [Ratio] 24.9 kg/m2 Ajit Spasic COACH BUILDER-C Work Phone: [facility] 03-14-2025 08:50-0400 Body temperature 97.4 [degF] Ajit Spasic COACH BUILDER-C Work Phone: [facility] 03-14-2025 08:50-0400 Body weight 68.94 kg Ajit Spasic COACH BUILDER-C Work Phone: [facility] 03-14-2025 08:50-0400 Diastolic blood pressure 86 mm[Hg] Ajit Spasic [employer]ACH BUILDER[employer]C Work Phone: [facility] 03-14-2025 08:50-0400 Heart rate 91 /min Ajit Spasic [employer]ACH BUILDER[employer] Work Phone: [facility] 03-14-2025 08:50-0400 Respiratory rate 20 /min Ajit Spasic [employer]ACH BU[employer]C Work Phone: [facility] 03-14-2025 08:50-0400 SaO2% (BldA) [Mass fraction] 99 % Ajit Spasic [employer]ACH BUILDER[employer]C Work Phone: [facility] 03-14-2025 08:50-0400 Systolic blood pressure 152 mm[Hg] Ajit Spasic COACH BUILDER-C Work Phone: [facility] 01-24-2025 11:34-0400 Body temperature 97.7 [degF] Laura Marte [facility] 01-24-2025 11:34-0400 Diastolic blood pressure 94 mm[Hg] [facility] 01-24-2025 11:34-0400 Heart rate 93 /min [facility] 01-24-2025 11:34-0400 Respiratory rate 18 /min [facility] 01-24-2025 11:34-0400 SaO2% (BldA) [Mass fraction] 99 % [facility] 01-24-2025 11:34-0400 Systolic blood pressure 140 mm[Hg] [facility] 07-09-2024 15:23-0400 Diastolic blood pressure 85 mm[Hg] Ambrose Cedeño [facility] 07-09-2024 15:23-0400 Heart rate 80 /min Ambrose Cedeño [facility] 07-09-2024 15:23-0400 Mean blood pressure 97 mm[Hg] Ambrose Davidson [facility] 07-09-2024 15:23-0400 Respiratory rate 18 /min Ambrose Davidson [facility] 07-09-2024 15:23-0400 SaO2% (BldA) [Mass fraction] 99 % Ambrose Cedeño [facility] 07-09-2024 15:23-0400 Systolic blood pressure 120 mm[Hg] Ambrose Davidson [facility] 07-09-2024 14:45-0400 Diastolic blood pressure 78 mm[Hg] Ambrose Davidson [facility] 07-09-2024 14:45-0400 Heart rate 83 /min Ambrose Davidson [facility] 07-09-2024 14:45-0400 Hourly Rounding Ambrose Cedeño [facility] 07-09-2024 14:45-0400 Mean blood pressure 91 mm[Hg] Ambrose Davidson [facility] 07-09-2024 14:45-0400 Promise to Return Ambrose Davidson [facility] 07-09-2024 14:45-0400 Respiratory rate 18 /min Ambrose Davidson [facility] 07-09-2024 14:45-0400 SaO2% (BldA) [Mass fraction] 99 % Ambrose Davidson [facility] 07-09-2024 14:45-0400 Systolic blood pressure 118 mm[Hg] Ambrose Davidson [facility] 07-09-2024 13:45-0400 Diastolic blood pressure 89 mm[Hg] Ambrose Davidson [facility] 07-09-2024 13:45-0400 Heart rate 79 /min Ambrose Davidson [facility] 07-09-2024 13:45-0400 Hourly Rounding Ambrose Davidson [facility] 07-09-2024 13:45-0400 Mean blood pressure 95 mm[Hg] Ambrose Davidson [facility] 07-09-2024 13:45-0400 Promise to Return Ambrose Davidson [facility] 07-09-2024 13:45-0400 Respiratory rate 18 /min Ambrose Davidson [facility] 07-09-2024 13:45-0400 SaO2% (BldA) [Mass fraction] 99 % Ambrose Davidson [facility] 07-09-2024 13:45-0400 Systolic blood pressure 106 mm[Hg] Ambrose Davidson [facility] 07-09-2024 12:41-0400 Body temperature 98.24 [degF] Ambrose Cedeño [facility] 07-09-2024 12:41-0400 Heart rate 82 /min Ambrose Cedeño [facility] 07-06-2024 20:55-0400 Diastolic blood pressure 84 mm[Hg] CO[employer] BUILDER-C Ajit Spasic Work Phone: [facility] 07-06-2024 20:55-0400 Heart rate 98 /min [employer] BUILDER-C Ajit Spasic Work Phone: [facility] 07-06-2024 20:55-0400 Respiratory rate 18 /min [employer] Ajit Spasic Work Phone: [facility] 07-06-2024 20:55-0400 SaO2% (BldA) [Mass fraction] 97 % [employer] BUIL[employer]-C Ajit Spasic Work Phone: [facility] 07-06-2024 20:55-0400 Systolic blood pressure 119 mm[Hg] COACH BUILDER-C Ajit Spasic Work Phone: [facility] 07-06-2024 16:05-0400 Body height 166.37 cm COACH BUILDER-C Ajit Spasic Work Phone: [facility] 07-06-2024 16:05-0400 Body temperature 98.2 [degF] COACH BUILDER-C Ajit Spasic Work Phone: [facility] 07-06-2024 16:05-0400 Body weight 66.67 kg COACH BUILDER-C Ajit Spasic Work Phone: [facility] 04-11-2024 14:08-0400 Diastolic blood pressure 70 mm[Hg] COACH BUILDER-C Ajit Spasic Work Phone: [facility] 04-11-2024 14:08-0400 Heart rate 83 /min [employer] BU[employer] Ajit Spasic Work Phone: [facility] 04-11-2024 14:08-0400 SaO2% (BldA) [Mass fraction] 99 % [employer] BUIL[employer]-C Ajit Spasic Work Phone: [facility] 04-11-2024 14:08-0400 Systolic blood pressure 118 mm[Hg] COACH BUILDER-C Ajit Spasic Work Phone: [facility] 03-16-2024 09:55-0400 Diastolic blood pressure 87 mm[Hg] COACH BUILDER-C Ajit Spasic Work Phone: [facility] 03-16-2024 09:55-0400 Heart rate 66 /min [employer] BUIL[employer]C Ajit Spasic Work Phone: [facility] 03-16-2024 09:55-0400 Respiratory rate 20 /min [employer] BU[employer] Ajit Spasic Work Phone: [facility] 03-16-2024 09:55-0400 SaO2% (BldA) [Mass fraction] 99 % [employer] BU[employer]C Ajit Spasic Work Phone: [facility] 03-16-2024 09:55-0400 Systolic blood pressure 138 mm[Hg] COACH BUILDER-C Ajit Spasic Work Phone: [facility] 03-16-2024 07:01-0400 Body height 166.37 cm COACH BUILDER-C Ajit Spasic Work Phone: [facility] 03-16-2024 07:01-0400 Body temperature 98.3 [degF] COACH BUILDER-C Ajit Spasic Work Phone: [facility] 03-16-2024 07:01-0400 Body weight 69.85 kg COACH BUILDER-C Ajit Spasic Work Phone: [facility] 03-08-2024 14:14-0400 Diastolic blood pressure 70 mm[Hg] COACH BUILDER-C Ajit Spasic Work Phone: [facility] 03-08-2024 14:14-0400 Heart rate 95 /min [employer]C Ajit Spasic Work Phone: [facility] 03-08-2024 14:14-0400 SaO2% (BldA) [Mass fraction] 99 % [employer] BU[employer]C Ajit Spasic Work Phone: [facility] 03-08-2024 14:14-0400 Systolic blood pressure 122 mm[Hg] COACH BUILDER-C Ajit Spasic Work Phone: [facility] 03-01-2024 12:19-0400 Diastolic blood pressure 75 mm[Hg] COACH BUILDER-C Ajit Spasic Work Phone: [facility] 03-01-2024 12:19-0400 Heart rate 69 /min [employer] Ajit Spasic Work Phone: [facility] 03-01-2024 12:19-0400 Inhaled oxygen flow rate 3 L/min [employer] Ajit Spasic Work Phone: [facility] 03-01-2024 12:19-0400 SaO2% (BldA) [Mass fraction] 100 % [employer]C Ajit Spasic Work Phone: [facility] 03-01-2024 12:19-0400 Systolic blood pressure 130 mm[Hg] CO[employer] BUIL[employer]-C Ajit Spasic Work Phone: [facility] 03-01-2024 12:13-0400 Respiratory rate 18 /min [employer] Ajit Spasic Work Phone: [facility] 03-01-2024 09:54-0400 Body height 166.37 cm [employer] BUIL[employer]-C Ajit Spasic Work Phone: [facility] 03-01-2024 09:54-0400 Body weight 69.85 kg [employer] BU[employer]C Ajit Spasic Work Phone: [facility] 02-21-2024 10:41-0400 Body weight 69.11 kg [employer] BU[employer]C Ajit Spasic Work Phone: [facility] 02-21-2024 10:41-0400 Diastolic blood pressure 80 mm[Hg] COACH BUILDER-C Ajit Spasic Work Phone: [facility] 02-21-2024 10:41-0400 Systolic blood pressure 124 mm[Hg] COACH BUIL[employer]-C Ajit Spasic Work Phone: [facility] 10-16-2023 13:00-0500 Diastolic blood pressure 94 mm[Hg] CO[employer] BUIL[employer]-C Ajit Spasic Work Phone: [facility] 10-16-2023 13:00-0500 Heart rate 70 /min [employer] Ajit Spasic Work Phone: [facility] 10-16-2023 13:00-0500 Respiratory rate 16 /min [employer] Ajit Spasic Work Phone: [facility] 10-16-2023 13:00-0500 SaO2% (BldA) [Mass fraction] 97 % [employer]-C Ajit Spasic Work Phone: [facility] 10-16-2023 13:00-0500 Systolic blood pressure 168 mm[Hg] COACH BUILDER-C Ajit Spasic Work Phone: [facility] 10-16-2023 09:33-0500 Body height 165.1 cm COACH BUILDER-C Ajit Spasic Work Phone: [facility] 10-16-2023 09:33-0500 Body temperature 97.4 [degF] COACH BUILDER-C Ajit Spasic Work Phone: [facility] 10-16-2023 09:33-0500 Body weight 77.3 kg COACH BUILDER-C Ajit Spasic Work Phone: [facility] 10-09-2023 16:00-0500 Body temperature 97.7 [degF] COACH BUILDER-C Ajit Spasic Work Phone: [facility] 10-09-2023 16:00-0500 Diastolic blood pressure 80 mm[Hg] COACH BUILDER-C Ajit Spasic Work Phone: [facility] 10-09-2023 16:00-0500 Heart rate 85 /min [employer]C Ajit Spasic Work Phone: [facility] 10-09-2023 16:00-0500 Respiratory rate 18 /min [employer] BUIL[employer]C Ajit Spasic Work Phone: [facility] 10-09-2023 16:00-0500 SaO2% (BldA) [Mass fraction] 99 % CO[employer] BUIL[employer]-C Ajit Spasic Work Phone: [facility] 10-09-2023 16:00-0500 Systolic blood pressure 117 mm[Hg] COACH BUILDER-C Ajit Spasic Work Phone: [facility] 10-08-2023 01:12-0500 Body height 165.1 cm COACH BUILDER-C Ajit Spasic Work Phone: [facility] 10-08-2023 01:12-0500 Body weight 76.65 kg COACH BUIL[employer]-C Ajit Spasic Work Phone: [facility] 09-28-2023 13:30-0500 Diastolic blood pressure 87 mm[Hg] COACH BUILDER-C Ajit Spasic Work Phone: [facility] 09-28-2023 13:30-0500 Heart rate 94 /min COACH BUIL[employer]-C Ajit Spasic Work Phone: [facility] 09-28-2023 13:30-0500 Respiratory rate 18 /min COACH BUIL[employer]-C Ajit Spasic Work Phone: [facility] 09-28-2023 13:30-0500 SaO2% (BldA) [Mass fraction] 94 % COACH BUILDER-C Ajit Spasic Work Phone: [facility] 09-28-2023 13:30-0500 Systolic blood pressure 131 mm[Hg] COACH BUILDER-C Ajit Spasic Work Phone: [facility] 09-28-2023 09:30-0500 Body temperature 97.9 [degF] COACH BUILDER-C Ajit Spasic Work Phone: [facility] 09-28-2023 08:51-0500 Inhaled oxygen flow rate 10 L/min CO[employer] BUIL[employer]-C Ajit Spasic Work Phone: [facility] 09-28-2023 07:20-0500 Body height 166.37 cm COACH BUILDER-C Ajit Spasic Work Phone: [facility] 09-28-2023 07:20-0500 Body mass index (BMI) [Ratio] 27.7 kg/m2 COACH BUILDER-C Ajit Spasic Work Phone: [facility] 09-28-2023 07:20-0500 Body weight 76.7 kg COACH BUILDER-C Ajit Spasic Work Phone: [facility] 07-13-2023 13:55-0400 Diastolic blood pressure 93 mm[Hg] NA [employer] Work Phone: [facility] 07-13-2023 13:55-0400 Heart rate 87 /min NA [employer] Work Phone: [facility] 07-13-2023 13:55-0400 Respiratory rate 16 /min NA [employer] Work Phone: [facility] 07-13-2023 13:55-0400 SaO2% (BldA) [Mass fraction] 96 % NA [employer] Work Phone: [facility] 07-13-2023 13:55-0400 Systolic blood pressure 133 mm[Hg] NA [employer] Work Phone: [facility] 07-13-2023 13:16-0400 Body temperature 98 [degF] NA [employer] Work Phone: [facility] 07-13-2023 12:51-0400 Inhaled oxygen flow rate 10 L/min NA [employer] Work Phone: [facility] 07-13-2023 12:17-0400 Body height 165.1 cm NA [employer] Work Phone: [facility] 07-13-2023 12:17-0400 Body mass index (BMI) [Ratio] 28.2 kg/m2 NA [employer] Work Phone: [facility] 07-13-2023 12:17-0400 Body weight 77 kg NA [employer] Work Phone: [facility] 05-05-2023 10:18-0400 Diastolic blood pressure 90 mm[Hg] COACH BUILDER-C Ajit Spasic Work Phone: [facility] 05-05-2023 10:18-0400 Heart rate 82 /min CO[employer] BU[employer]C Ajit Spasic Work Phone: [facility] 05-05-2023 10:18-0400 Respiratory rate 18 /min [employer] BU[employer]C Ajit Spasic Work Phone: [facility] 05-05-2023 10:18-0400 SaO2% (BldA) [Mass fraction] 98 % CO[employer] BUILDER-C Ajit Spasic Work Phone: [facility] 05-05-2023 10:18-0400 Systolic blood pressure 130 mm[Hg] CO[employer] BUILDER-C Ajit Spasic Work Phone: [facility] 05-05-2023 09:39-0400 Inhaled oxygen flow rate 3 L/min [employer]C Ajit Spasic Work Phone: [facility] 05-05-2023 08:43-0400 Body height 165.1 cm CO[employer] BUIL[employer]-C Ajit Spasic Work Phone: [facility] 05-05-2023 08:43-0400 Body weight 74.84 kg CO[employer] BUIL[employer]-C Ajit Spasic Work Phone: [facility] 04-14-2023 12:08-0400 Diastolic blood pressure 89 mm[Hg] CO[employer] BUILDER-C Ajit Spasic Work Phone: [facility] 04-14-2023 12:08-0400 Heart rate 71 /min CO[employer] BUIL[employer]-C Ajit Spasic Work Phone: [facility] 04-14-2023 12:08-0400 Respiratory rate 16 /min COACH BUIL[employer]-C Ajit Spasic Work Phone: [facility] 04-14-2023 12:08-0400 SaO2% (BldA) [Mass fraction] 97 % CO[employer] BUILDER-C Ajit Spasic Work Phone: [facility] 04-14-2023 12:08-0400 Systolic blood pressure 124 mm[Hg] CO[employer] BUILDER-C Ajit Spasic Work Phone: [facility] 04-14-2023 11:29-0400 Inhaled oxygen flow rate 3 L/min CO[employer]-C Ajit Spasic Work Phone: [facility] 04-14-2023 10:19-0400 Body height 165.1 cm CO[employer] BUIL[employer]-C Ajit Spasic Work Phone: [facility] 04-14-2023 10:19-0400 Body weight 74.84 kg COACH BUIL[employer]-C Ajit Spasic Work Phone: [facility] 04-02-2023 11:30-0400 Body height 166.37 cm Kyler Miramontes Other [employer] Other 04-02-2023 11:30-0400 Body mass index (BMI) [Ratio] 27.04 kg/m2 Kyler Miramontes Other [employer] Other 04-02-2023 11:30-0400 Body weight 74.84 kg Kyler Miramontes Other [facility] [employer] Other 04-02-2023 11:30-0400 Diastolic blood pressure 80 mm[Hg] Klyer Miramontes Other [employer] Other 04-02-2023 11:30-0400 Systolic blood pressure 110 mm[Hg] Kyler Miramontes Other [facility] [employer] Other 11-18-2022 11:59-0500 Diastolic blood pressure 94 mm[Hg] Services [facility] [email or web address] Work Phone: [facility] 11-18-2022 11:59-0500 Heart rate 85 /min Services [facility] [email or web address] Work Phone: [facility] 11-18-2022 11:59-0500 Respiratory rate 16 /min Services [facility] [email or web address] Work Phone: [facility] 11-18-2022 11:59-0500 SaO2% (BldA) [Mass fraction] 98 % Services [facility] [email or web address] Work Phone: [facility] 11-18-2022 11:59-0500 Systolic blood pressure 140 mm[Hg] Services [facility] [email or web address] Work Phone: [facility] 11-18-2022 11:21-0500 Inhaled oxygen flow rate 3 L/min Services [facility] [email or web address] Work Phone: [facility] 11-18-2022 09:23-0500 Body height 166.37 cm Services [facility] [email or web address] Work Phone: [facility] 11-18-2022 09:23-0500 Body weight 74.38 kg Services [facility] [email or web address] Work Phone: [facility] 11-03-2022 11:30-0500 Body height 166.37 cm Kyler Miramontes Other [facility] [employer] Other 11-03-2022 11:30-0500 Diastolic blood pressure 80 mm[Hg] Kyler Miramontes Other [facility] [employer] Other 11-03-2022 11:30-0500 SaO2% (BldA) [Mass fraction] 98 % Kyler Miramontes Other [facility] [employer] Other 11-03-2022 11:30-0500 Systolic blood pressure 118 mm[Hg] Kyler Miramontes Other [facility] [employer] Other 07-31-2022 11:50-0400 Blood Pressure Location Joshua Blitsy [facility] 07-31-2022 11:50-0400 Diastolic blood pressure 82 mm[Hg] Joshua Blitsy [facility] 07-31-2022 11:50-0400 Heart rate 70 /min Joshua Blitsy [facility] 07-31-2022 11:50-0400 Respiratory rate 16 /min Joshua Blitsy [facility] 07-31-2022 11:50-0400 Systolic blood pressure 136 mm[Hg] Joshua Blitsy [facility] 05-27-2022 09:13-0400 Body temperature 97.9 [degF] Services [facility] [employer] Work Phone: [facility] 05-27-2022 09:13-0400 Body weight 77.11 kg Services [employer] Work Phone: [facility] 05-27-2022 09:13-0400 Diastolic blood pressure 82 mm[Hg] Services [facility] [email or web address] Work Phone: [facility] 05-27-2022 09:13-0400 Heart rate 70 /min [facility] Work Phone: [facility] 05-27-2022 09:13-0400 Respiratory rate 20 /min Services [facility] Work Phone: [facility] 05-27-2022 09:13-0400 SaO2% (BldA) [Mass fraction] 98 % [facility] Work Phone: [facility] 05-27-2022 09:13-0400 Systolic blood pressure 121 mm[Hg] Services [facility] Work Phone: [facility] 05-27-2022 08:06-0400 Body height 166.37 cm Services [facility] Work Phone: [facility] 05-01-2022 22:19-0400 Diastolic blood pressure 70 mm[Hg] Services [facility] Work Phone: [facility] 05-01-2022 22:19-0400 Heart rate 86 /min Services [facility] Work Phone: [facility] 05-01-2022 22:19-0400 Respiratory rate 18 /min Services [facility] Work Phone: [facility] 05-01-2022 22:19-0400 SaO2% (BldA) [Mass fraction] 99 % Services [facility] Work Phone: [facility] 05-01-2022 22:19-0400 Systolic blood pressure 138 mm[Hg] Services [facility] Work Phone: [facility] 05-01-2022 17:09-0400 Body height 166.37 cm Services [facility] Work Phone: [facility] 05-01-2022 17:09-0400 Body temperature 99.4 [degF] Services [facility] Work Phone: [facility] 05-01-2022 17:09-0400 Body weight 77.8 kg Services [facility] Work Phone: [facility] 04-29-2022 14:29-0400 Body height 165.1 cm Services [facility] [employer] [facility] Work Phone: [facility] 04-29-2022 14:29-0400 Body temperature 97.8 [degF] Services [facility] [employer] [facility] Work Phone: [facility] 04-29-2022 14:29-0400 Body weight 68.03 kg Services [facility] [employer] Work Phone: [facility] 04-29-2022 14:29-0400 Diastolic blood pressure 83 mm[Hg] Services [facility] Work Phone: [facility] 04-29-2022 14:29-0400 Heart rate 70 /min Services [facility] [email or web address] Work Phone: [facility] 04-29-2022 14:29-0400 Respiratory rate 16 /min Services [facility] [email or web address] Work Phone: [facility] 04-29-2022 14:29-0400 SaO2% (BldA) [Mass fraction] 100 % Services [facility] [employer] Work Phone: [facility] 04-29-2022 14:29-0400 Systolic blood pressure 131 mm[Hg] Services [facility] [email or web address] Work Phone: [facility] 02-19-2022 15:45-0400 Body height 166.37 cm Kyler Miramontes Other [facility] Other 02-19-2022 15:45-0400 Body mass index (BMI) [Ratio] 27.36 kg/m2 Kyler Miramontes Other [facility] Other 02-19-2022 15:45-0400 Body weight 75.75 kg Kyler Miramontes Other [facility] Other 02-19-2022 15:45-0400 Diastolic blood pressure 64 mm[Hg] Kyler Miramontes Other [facility] Other 02-19-2022 15:45-0400 Systolic blood pressure 110 mm[Hg] Kyler Miramontes Other [facility] Other 01-28-2022 14:00-0400 Body height 166.37 cm Kyler Miramontes Other [facility] Other 01-28-2022 14:00-0400 Body mass index (BMI) [Ratio] 27.27 kg/m2 Kyler Miramontes Other [facility] Other 01-28-2022 14:00-0400 Body weight 75.48 kg Kyler Miramontes Other [facility] Other 01-28-2022 14:00-0400 Diastolic blood pressure 68 mm[Hg] Kyler Miramontes Other [facility] Other 01-28-2022 14:00-0400 Systolic blood pressure 112 mm[Hg] Kyler Miramontes Other [facility] Other 01-14-2022 12:00-0400 Body height 166.37 cm Girish Callaway Other [facility] Other 01-14-2022 12:00-0400 Body mass index (BMI) [Ratio] 25.23 kg/m2 Girish Callaway Other [facility] Other 01-14-2022 12:00-0400 Body weight 69.85 kg Girish Callaway Other [facility] Other Encounters Encounter Date Encounter Type Care Provider Facility Start: 05-29-2025 ambulatory Joshua SILVEIRA Facility : [place] Start: 04-18-2025 End: 04-18-2025 Patient encounter procedure Leodan Patricia MD -Lab [facility] Work Phone: Start: 04-18-2025 Registered Recurring Jane Woo [facility] -Can[facility] Center Acute Work Phone: Start: 04-18-2025 End: 04-18-2025 ambulatory Ajit E Spasic [employer]C Work Phone: [facility] Work Phone: Start: 04-16-2025 End: 04-16-2025 ambulatory Ajit E Spasic [employer]C Work Phone: [facility] Work Phone: Start: 04-16-2025 End: 04-16-2025 Patient encounter procedure Leodan Patricia MD -[facility] Infect Dis Work Phone: Start: 04-04-2025 Registered Recurring Jane Woo COACH BUILDER-C -Cancer [place] Acute Work Phone: Start: 04-04-2025 End: 04-04-2025 ambulatory Ajit E Spasic [employer] BUILDER-C Work Phone: [facility] Work Phone: Start: 04-04-2025 End: 04-04-2025 Patient encounter procedure Enrique Pratt MD -[facility] Ambulatory Work Phone: Start: 03-20-2025 End: 03-20-2025 Patient encounter procedure Cb Raines MD -[facility] Neurosurgery Work Phone: Start: 03-14-2025 Registered Recurring Ajit Spa sic COACH BUILDER-C Work Phone: [facility]-Cancer Center Acute Work Phone: Start: 03-14-2025 End: 03-14-2025 ambulatory Ajit E Spasic [employer]ACH BUILDER-C Work Phone: [facility] Work Phone: Start: 03-14-2025 End: 03-14-2025 Patient encounter procedure Ajit Lariossic COACH BUILDER-C Work Phone: [facility]-Cancer Center Ambulatory Work Phone: Start: 03-06-2025 End: 03-06-2025 Patient encounter procedure Ajit Spasic [employer]C Work Phone: [facility]-Ultrasound [address] [place] Work Phone: Start: 03-06-2025 End: 03-06-2025 ambulatory Ajit E Spasic [employer]C Work Phone: [facility] Work Phone: Start: 02-26-2025 End: 02-26-2025 ambulatory Ajit E Spasic [employer]C Work Phone: [facility] Work Phone: Start: 02-26-2025 End: 02-26-2025 Departed Referred Ajit Harrietsic COACH BUILDER-C Work Phone: [facility] Start: 02-21-2025 ambulatory Joshua SILVEIRA Facility:[facility] Start: 02-20-2025 End: 02-20-2025 ambulatory Ajit Lariossic Facility:[facility] Start: 02-20-2025 End: 02-20-2025 Departed Referred Ajit Lariossic [employer] BUIL[employer]-C Work Phone: [facility] Start: 02-16-2025 End: 02-16-2025 ambulatory Praveen Aidan Facility:[facility] Start: 02-16-2025 End: 02-16-2025 Departed Referred Ajit Spasic [employer]C Work Phone: [facility] Start: 02-15-2025 End: 02-15-2025 Patient encounter procedure Ajit Spasic [employer] BU[employer]-C Work Phone: [facility]-Center for Breast Care Work Phone: Start: 02-15-2025 End: 02-15-2025 ambulatory Ajit E Spasic Facility:[facility] Start: 02-12-2025 End: 02-12-2025 ambulatory Ajit E Spasic [employer]C Work Phone: [facility] Work Phone: Start: 02-12-2025 End: 02-12-2025 Departed Referred Ajit Spasic [employer] BUILDER-C Work Phone: [facility] Start: 01-24-2025 End: 01-24-2025 [facility] Start: 01-18-2025 End: 01-18-2025 ambulatory Ajit E Spasic [employer] BU[employer]C Work Phone: [facility] Work Phone: Start: 01-18-2025 End: 01-18-2025 Departed Referred Ajit Spasic COACH BUILDER-C Work Phone: [facility] Start: 09-06-2024 End: 09-06-2024 ambulatory Ajit E Spasic Facility:[facility] Start: 09-05-2024 End: 09-05-2024 ambulatory Ajit E Spasic Facility:[facility] Start: 07-24-2024 End: 07-24-2024 Patient encounter procedure [employer]IL[employer]-C Ajit Spasic Work Phone: [facility]-Ultrasound Cntr for Breast Car Start: 07-24-2024 End: 07-24-2024 ambulatory COACH BUIL[employer]-C Ajit E Spasic Work Phone: [facility] Work Phone: Start: 07-09-2024 End: 07-09-2024 Emergency department patient visit Ambrose Cedeño Facility[facility] Start: 07-06-2024 End: 07-06-2024 Emergency department patient visit [employer]C Ajit Spasic Work Phone: [facility]-Emergency Room Work Phone: Start: 07-04-2024 End: 07-04-2024 Patient encounter procedure COACH BUILDER-C Ajit Spasic Work Phone: [facility]-Lab [place] Work Phone: Start: 07-04-2024 End: 07-04-2024 ambulatory CO[employer] BUIL[employer]-C Ajit E Spasic Work Phone: [facility] Work Phone: Start: 06-08-2024 End: 06-08-2024 Patient encounter procedure CO[employer] BUIL[employer]-C Ajit Spasic Work Phone: [facility]-MRI [address] Work Phone: Start: 06-08-2024 End: 06-08-2024 ambulatory COACH BUIL[employer]-C Ajit E Spasic Work Phone: [facility] Work Phone: Start: 05-16-2024 End: 05-16-2024 ambulatory CO[employer] BUIL[employer]-C Ajit E Spasic Work Phone: [facility] Work Phone: Start: 05-16-2024 End: 05-16-2024 Departed Referred [employer] BU[employer]-C Ajit Spasic Work Phone: [facility] Start: 04-11-2024 End: 04-11-2024 ambulatory CO[employer] BU[employer]-C Ajit E Spasic Work Phone: [facility] Work Phone: Start: 04-11-2024 End: 04-11-2024 Patient encounter procedure [employer]-C Ajit Spasic Work Phone: [facility] Work Phone: Start: 03-16-2024 Non-patient / Non-visit COACH BUILDER-C L aura Spasic Work Phone: [facility] Gastroenterology Work Phone: Start: 03-16-2024 End: 03-16-2024 Admission to same day surgery center COACH BUILDER-C Ajit Spasic Work Phone: [facility]-Digestive Health Work Phone: Start: 03-16-2024 End: 03-16-2024 ambulatory COACH BUIL[employer]-C Ajit E Spasic Work Phone: [facility] Work Phone: Start: 03-08-2024 End: 03-08-2024 ambulatory COACH BUIL[employer]-C Ajit E Spasic Work Phone: [facility] Work Phone: Start: 03-08-2024 End: 03-08-2024 Patient encounter procedure CO[employer] BU[employer]-C Ajit Spasic Work Phone: [facility] Work Phone: Start: 03-02-2024 End: 03-02-2024 ambulatory COACH BUILDER-C Ajit E Spasic Work Phone: [facility] Work Phone: Start: 03-02-2024 End: 03-02-2024 Patient encounter procedure COACH BUILDER-C Ajit Spasic Work Phone: [facility]-ay [facility] Work Phone: Start: 03-01-2024 Non-patient / Non-visit COACH BUILDER-C L aura Spasic Work Phone: [facility] Work Phone: Start: 03-01-2024 End: 03-01-2024 Admission to same day surgery center COACH BUILDER-C Ajit Spasic Work Phone: [facility]-Digestive Health Work Phone: Start: 03-01-2024 End: 03-01-2024 ambulatory COACH BU[employer]-C Ajit E Spasic Work Phone: [facility] Work Phone: Start: 02-21-2024 End: 02-21-2024 ambulatory COACH BUIL[employer]-C Ajit E Spasic Work Phone: [facility] Work Phone: Start: 02-21-2024 End: 02-21-2024 Patient encounter procedure CO[employer] BUIL[employer]-C Ajit Spasic Work Phone: [facility] Work Phone: Start: 02-09-2024 End: 02-09-2024 ambulatory COACH BUILDER-C Ajit E Spasic Work Phone: [facility] Work Phone: Start: 02-09-2024 End: 02-09-2024 Patient encounter procedure COACH BUILDER-C Ajit Spasic Work Phone: [facility]-Ultrasound Cntr for Breast Car Start: 02-04-2024 End: 02-04-2024 ambulatory COACH BUILDER-C Ajit E Spasic Work Phone: [facility] Work Phone: Start: 02-04-2024 End: 02-04-2024 Patient encounter procedure COACH BUIL[employer]-C Ajit Spasic Work Phone: [facility]-Center for Breast Care Work Phone: Start: 01-21-2024 End: 01-21-2024 ambulatory COACH BUIL[employer]-C Ajit E Spasic Work Phone: [facility] Work Phone: Start: 01-21-2024 End: 01-21-2024 Patient encounter procedure COACH BUILDER-C Ajit Spasic Work Phone: [facility]-Ultrasound [place] Work Phone: Start: 01-18-2024 End: 01-18-2024 ambulatory COACH BUILDER-C Ajit Spasic Work Phone: [facility] Work Phone: Start: 01-18-2024 End: 01-18-2024 Departed Referred COACH BUILDER-C Ajit Spasic Work Phone: [facility] Start: 10-20-2023 End: 10-20-2023 ambulatory CARRI Kaplan VISCI Not Available Start: 10-16-2023 End: 10-16-2023 Emergency department patient visit COACH BUILDER-C Ajit Spasic Work Phone: [facility]-Emergency Room Work Phone: Start: 10-07-2023 End: 10-09-2023 Evaluation and management of inpatient COACH BUILDER-C Ajit Spasic Work Phone: [facility]-[address] Work Phone: Start: 09-28-2023 End: 09-28-2023 Admission to same day surgery center COACH BUILDER-C Ajit Spasic Work Phone: [facility]-Surgery [place] Start: 09-16-2023 End: 09-16-2023 ambulatory COACH BUIL[employer]-C Ajit E Spasic Work Phone: [facility] Work Phone: Start: 09-16-2023 End: 09-16-2023 Patient encounter procedure COACH BUILDER-C Ajit Spasic Work Phone: [facility]-Pre-Surgical Testing Work Phone: Start: 07-13-2023 End: 07-13-2023 Admission to same day surgery center NA [facility] Work Phone: [facility]-Surgery Center [place] Start: 07-13-2023 End: 07-13-2023 ambulatory . [facility] Work Phone: [facility] Work Phone: Start: 06-30-2023 End: 06-30-2023 ambulatory . [facility] Work Phone: [facility] Work Phone: Start: 06-30-2023 End: 06-30-2023 Patient encounter procedure NA [facility] Work Phone: [facility]-Pre-Surgical Testing Work Phone: Start: 05-05-2023 (PROC) [facility] Start: 05-05-2023 End: 05-05-2023 Admission to same day surgery center COACH BUILDER-C Ajit Spasic Work Phone: [facility]-Digestive Health Work Phone: Start: 05-05-2023 End: 05-05-2023 ambulatory NON STAFF [facility] edical Ctr Work Phone: Start: 05-04-2023 End: 05-04-2023 ambulatory NON STAFF [facility] edical Ctr Work Phone: Start: 05-04-2023 End: 05-04-2023 Departed Referred COACH BUIL[employer]-C Ajit Spasic Work Phone: [facility] Start: 04-26-2023 End: 04-26-2023 Patient encounter procedure COACH BUIL[employer]-C Ajit Spasic Work Phone: [facility]-Lab [place] Work Phone: Start: 04-14-2023 (PROC) PROCEDURE [facility] Start: 04-14-2023 End: 04-14-2023 Admission to same day surgery center COACH BUIL[employer]-C Ajit Spasic Work Phone: [facility]-Digestive Health Work Phone: Start: 04-14-2023 End: 04-14-2023 ambulatory NON STAFF [facility] [employer] Other Start: 04-02-2023 End: 04-02-2023 ambulatory Kyler Miramontes Other [facility] Other Start: 04-02-2023 Office outpatient vi sit 25 minutes Kyler Miramontes [facility] Start: 02-15-2023 End: 02-15-2023 ambulatory AJIT SPASIC Facility:[facility] Start: 02-09-2023 End: 02-09-2023 ambulatory [facility] Work Phone: [facility] Work Phone: Start: 02-09-2023 End: 02-09-2023 Departed Referred Services [facility] Work Phone: [facility] Start: 01-29-2023 End: 01-29-2023 ambulatory AJIT SPASIC Facility:[facility] Start: 11-18-2022 (PROC) PROCEDURE Kyler Miramontes [facility] Medical OutPt Start: 11-18-2022 End: 11-18-2022 Admission to same day surgery center Services [facility] Work Phone: [facility]- Work Phone: Start: 11-18-2022 End: 11-18-2022 ambulatory Services [facility] Work Phone: [facility] Work Phone: Start: 11-12-2022 End: 11-12-[address] ANISA CHONG . Facility:[facility] Start: 11-05-2022 End: 11-05-2022 ambulatory Services [facility] Work Phone: [facility] Work Phone: Start: 11-05-2022 End: 11-05-2022 Departed Referred Services [facility] Work Phone: [facility] Start: 11-03-2022 End: 11-03-2022 ambulatory Kyler Miramontes Other [facility] Other Start: 11-03-2022 Office outpatient vi sit 25 minutes Kyler Fejennifer [facility] Start: 11-03-2022 End: 11-03-2022 Patient encounter procedure Services [facility] Work Phone: [facility]-XRay [place] Work Phone: Start: 11-02-2022 End: 11-02-2022 Patient encounter procedure Joshua SILVEIRA [facility] Start: 09-29-2022 End: 09-29-2022 Patient encounter procedure Joshua SILVEIRA [facility] Start: 08-24-2022 End: 08-24-2022 Patient encounter procedure Joshua SILVEIRA [facility] Start: 07-31-2022 End: 07-31-2022 Patient encounter procedure Joshua SILVEIRA [facility] Start: 07-08-2022 End: 07-08-2022 ambulatory Services [facility] Work Phone: [facility] Work Phone: Start: 07-08-2022 End: 07-08-2022 Patient encounter procedure Services [facility] Work Phone: [facility]Lab [place] Start: 06-24-2022 End: 06-24-2022 Patient encounter procedure Services [facility] Work Phone: [facility]-MRI [place] Start: 06-17-2022 End: 06-17-2022 Patient encounter procedure Services [facility] Work Phone: [facility]-Ultrasound [place] Start: 06-09-2022 End: 06-09-2022 Patient encounter procedure Services [facility] Work Phone: [facility]-Ultrasound [place] Start: 06-02-2022 End: 06-02-2022 Departed Referred Services [facility] Work Phone: [facility] Start: 05-27-2022 End: 05-27-2022 Registered Recurring Services [facility] Work Phone: [facility]-Cancer Center Start: 05-07-2022 End: 05-07-2022 Patient encounter procedure Services [facility] Work Phone: [facility] [place] Start: 05-01-2022 End: 05-01-2022 Emergency department patient visit Services [facility] Work Phone: [facility]-Emergency Room Start: 05-01-2022 End: 05-01-2022 Patient encounter procedure Services [facility] Work Phone: [facility]-X[facility] [place] Start: 04-30-2022 End: 04-30-2022 Departed Referred Services [facility] Work Phone: [facility] Start: 04-29-2022 End: 04-29-2022 Emergency department patient visit Services [facility] Work Phone: [facility]-Emergency Room Start: 03-04-2022 (Procedure) Jaxon Kyler Fe [employer] [facility] Medical OutPt Start: 03-04-2022 End: 03-04-2022 ambulatory Kylerjocelyn Miramontes Other [facility] Other Start: 02-19-2022 End: 02-19-2022 ambulatory Kyler Fe Other [facility] Other Start: 02-19-2022 Office outpatient vi sit 25 minutes Kyler Miramontes [facility] Start: 02-11-2022 (Procedure) Short Kyler Miramontes [employer] [facility] Medical OutPt Start: 02-11-2022 End: 02-11-2022 ambulatory Kyler Miramontes Other [employer] Other Start: 01-28-2022 End: 01-28-2022 ambulatory Kyler Miramontes Other [facility] [employer] Other Start: 01-28-2022 Office consultation new/estab patient 60 min Kyler Calderonky [facility] Start: 01-14-2022 End: 01-14-2022 ambulatory Girish Elsdeb Other [facility] [employer] Other Start: 01-14-2022 Office outpatient ne w 30 minutes Girish Callaway [facility] Neurosurgery Start: 01-21-2021 End: 01-21-2021 Departed Referred Services [facility] Work Phone: -[facility] Start: 12-24-2020 End: 12-24-2020 Patient encounter procedure Ajit Spasic -MRI [facility] Start: 12-03-2020 End: 12-03-2020 Patient encounter procedure Ajit Spasic -MRI [facility] Start: 12-02-2020 End: 12-02-2020 Patient encounter procedure Ajit Spasic -MRI [facility] Start: 11-05-2020 End: 11-05-2020 Departed Referred Ajit Millanc -[place] [facility] Start: 10-22-2020 End: 10-22-2020 Patient encounter procedure Ajit Yanac -XRay [facility] Start: 09-23-2020 End: 09-23-2020 Patient encounter procedure Ajit Spasic -Lab [facility] Procedures Date Procedure Procedure Detail Performing Clinician Start: 04-18-2025 Computed tomography of abdomen and pelvis with contrast Ajit Spasic [employer] Work Phone: Start: 04-18-2025 CT of thorax with contrast Ajit Spasic [employer] Work Phone: Start: 03-14-2025 Hepatitis A virus an tibody, IgM type Ajit Spasic [employer] Work Phone: Comment on above: A negative anti-HAV IgM result suggests no recent orcurrent HAV infection.Performed at: [facility] [id number] [place], [place] [id number] Director: Daniel Wen PhD, Phone: [phone] Start: 03-14-2025 Hepatitis B core ant ibody measurement Ajit Lariossic [employer] Work Phone: Start: 03-14-2025 Human immunodeficien cy virus antibody test Ajit Lariossic [employer]-C Work Phone: Comment on above: HIV-1/HIV-2 antibodi es and HIV-1 p24 antigen were NOTdetected. There is no laboratory evidence of HIV infection.HIV NegativePerformed at: [facility] [id number] [place], [place] [id number] Director: Daniel Wen PhD, Phone: [phone] Start: 03-06-2025 Duplex scan of lower limb veins Ajit Spasic [employer] Work Phone: Start: 03-06-2025 Ultrasonography of bilateral kidneys Ajit Spasic [employer] Work Phone: Start: 02-26-2025 Urine culture Ajit Spa sic [employer] Work Phone: Start: 02-20-2025 Urine culture Ajit Spa sic [employer] Work Phone: Start: 02-16-2025 Urine culture Ajit Spa sic [employer] Work Phone: Start: 02-15-2025 Screening mammograph y of bilateral breasts Ajit Spasic [employer] Work Phone: Start: 02-12-2025 Urine culture Ajit Spa sic [employer] Work Phone: Start: 01-18-2025 Urine culture Ajit Spa sic [employer] Work Phone: Start: 07-06-2024 Plain chest X-ray [employer] Ajit Spasic Work Phone: Start: 07-06-2024 Computed tomography of abdomen and pelvis with contrast [employer] Ajit Spasic Work Phone: Start: 06-08-2024 MR lumbar spine wo con [employer] Ajit Spasic Work Phone: Start: 03-16-2024 Screening colonoscopy N P-C Ajit Spasic Work Phone: Start: 03-02-2024 X-ray of lumbar spin e, four views [employer] Ajit Spasic Work Phone: Start: 03-01-2024 Injection of local anesthetic into sacroiliac joint [employer] Ajit Spasic Work Phone: Start: 02-09-2024 Ultrasonography of r ight breast [employer] Ajit Spasic Work Phone: Start: 02-04-2024 Screening mammograph y of bilateral breasts [employer] Ajit Spasic Work Phone: Start: 01-21-2024 Ultrasonography of bilateral kidneys [employer] Ajit Spasic Work Phone: Start: 10-09-2023 Stool culture for bacteria [employer] Ajit Spasic Work Phone: Start: 10-08-2023 Computed tomography of abdomen and pelvis with contrast [employer] Ajit Spasic Work Phone: Start: 09-28-2023 Total hysterectomy v ia vaginal approach [employer] Ajit Spasic Work Phone: Start: 07-13-2023 Hysteroscopy NA [facility] Work Phone: Start: 05-05-2023 Injection of local anesthetic into sacroiliac joint [employer]C Ajit Spasic Work Phone: Start: 05-04-2023 Urine culture NA [facility] Work Phone: Start: 04-26-2023 Radiography of thora cic spine [employer] Ajit Spasic Work Phone: Start: 04-14-2023 Epidural injection o f lumbar spine using fluoroscopic guidance [employer] Ajit Spasic Work Phone: Start: 02-09-2023 Urine culture [employer] Piero a Spasic Work Phone: Start: 11-18-2022 Injection of spinal epidural space Services [facility] [email or web address] Work Phone: Start: 11-05-2022 Urine culture Services [facility] [email or web address] Work Phone: Start: 11-03-2022 X-ray of cervical spine Services [facility] [email or web address] Work Phone: Start: 08-24-2022 Cystourethroscopy wi dilation of urethral stricture Joshua SILVEIRA Start: 06-24-2022 MRI of head Services [facility] [email or web address] Work Phone: Start: 06-17-2022 Transvaginal echography Services [facility] [email or web address] Work Phone: Start: 06-17-2022 Pelvic echography Servi [facility] [email or web address] Work Phone: Start: 06-09-2022 [facility] [email or web address] Work Phone: Start: 05-01-2022 Computed tomography of abdomen and pelvis with contrast Services [facility] [email or web address] Work Phone: Start: 05-01-2022 X-ray of right knee Ser [facility] [email or web address] Work Phone: Start: 04-29-2022 X-ray of left ankle Ser [facility] [email or web address] Work Phone: Start: 12-24-2020 MRI of left [...] for ba cteria, including anaerobic screen Services [facility] [email or web address] Work Phone: Blood culture for ba cteria, including anaerobic screen Services [facility] [email or web address] Work Phone: Cholecystectomy Joshua SILVEIRA H/O: hysterectomy S/P hysterectomy [employer] Tyron patricka Spasic Work Phone: H/O: hysterectomy Status post hysterectomy [employer] Ajit Spasic Work Phone: Urine culture Services [facility] [email or web address] Work Phone: Plan of Treatment Date Care Activity Detail Author Start: 04-18-2025 [facility] Start: 04-04-2025 Patient referral [facility] Work Phone: Start: 02-26-2025 Bacteria identified in Urine by Culture Urine Culture [facility] Start: 02-26-2025 Urine culture [facility] Start: 02-12-2025 Bacteria identified in Urine by Culture Urine Culture [facility] Start: 02-12-2025 Urine culture [facility] Start: 01-18-2025 Urine culture [facility] Start: 01-18-2025 Bacteria identified in Urine by Culture Urine Culture [facility] Start: 07-24-2024 Ultrasonography of right breast US breast RT limited [facility] Start: 03-16-2024 [facility] Start: 03-01-2024 [facility] Start: 10-16-2023 Bacteria identified in Blood by Culture [facility] Start: 10-16-2023 [facility] Start: 10-09-2023 Stool culture Stool Culture [facility] Start: 10-09-2023 [facility] Start: 10-09-2023 Referral to pet care associate [facility] Start: 10-08-2023 Hospital admission [facility] Start: 10-08-2023 [facility] Start: 10-07-2023 Referral to clinical software applications designer [facility] Start: 09-28-2023 Hospital admission [facility] Start: 09-28-2023 [facility] Start: 07-13-2023 End: 07-13-2023 [facility] Start: 05-05-2023 [facility] Start: 05-04-2023 Bacteria identified in Urine by Culture Urine Culture [facility] Start: 05-04-2023 Urine culture Urine Culture [facility] Start: 04-14-2023 [facility] Start: 02-09-2023 Bacteria identified in Urine by Culture [facility] Start: 11-18-2022 [facility] Start: 11-05-2022 Bacteria identified in Urine by Culture [facility] Start: 06-02-2022 End: 06-02-2022 Departed Referred Departed Referred [facility] Start: 05-27-2022 Registered Recurring Iron deficiency [facility] Start: 05-27-2022 [facility] Start: 05-07-2022 End: 05-07-2022 Patient encounter procedure Departed Clinical [facility] [place] Start: 05-01-2022 Computed tomography of abdomen and pelvis with contrast CT abdomen pelvis w con [facility] Start: 05-01-2022 End: 05-01-2022 Emergency department patient visit Departed Emergency [facility] Angiotensin converti ng enzyme [Enzymatic activity/volume] in Serum or Plasma [facility] Atopobium vaginae DN A [Presence] in Vaginal fluid by NAYELY with probe detection [facility] Bacterial vaginosis associated bacterium 2 DNA [Presence] in Vaginal fluid by NAYELY with probe detection [facility] Chlamydia trachomati s rRNA [Presence] in Cervix by NAYELY with probe detection [facility] CT Abdomen and Pelvi s W contrast IV [facility] CT Chest W contrast IV [facility] Glucose measurement estimated from glycated hemoglobin [facility] Glucose measurement estimated from glycated hemoglobin [facility] Hemoglobin A1c/Hemoglobin.total in Blood [facility] Hepatitis A virus an tibody, IgM type [facility] Hepatitis B core ant ibody measurement [facility] Hepatitis B virus torres rface Ab [Presence] in Serum [facility] Human papilloma viru s 16+18+31+33+35+39+45+51+52+ 56+58+59+66+68 DNA [Presence] in Cervix by Probe with signal amplification [facility] Human papilloma viru s 16+18+31+33+35+39+45+51+52+ 56+58+59+68 DNA [Presence] in Cervix by Probe with signal amplification [facility] Interferon gamma assay [facility] Megasphaera sp type 1 DNA [Presence] in Vaginal fluid by NAYELY with probe detection [facility] Mycobacterium tuberc ulosis stimulated gamma interferon [Interpretation] in Blood Qualitative [facility] Mycobacterium tuberc ulosis stimulated gamma interferon release by CD4+ and CD8+ T-cells [Units/volume] corrected for background in Blood [facility] Mycobacterium tuberc ulosis tuberculin stimulated gamma interferon [Presence] in Blood [facility] Neisseria gonorrhoea e rRNA [Presence] in Cervix by NAYELY with probe detection [facility] Patient Education [facility] Work Phone: Patient referral [facility] Work Phone: Reagin Ab [Presence] in Serum by RPR [facility] Rheumatoid factor [Units/volume] in Serum or Plasma [facility] XR Lumbar spine 4 Views [facility] [place] Immunizations Immunization Date Immunization Notes Care Provider Fa paula 09-19-2021 COVID-19 mRNA, Comirnaty (Pfizer) NA [facility] [employer] [facility] Work Phone: [facility] 08-29-2021 COVID-19 mRNA, Comirnaty (Pfizer) NA [facility] Work Phone: [facility] NEGATED: Highlighted row has not occurred!10-27-2019 influenza virus vaccine, live, attenuated, for intranasal use Joshua SILVEIRA [facility] Payers Date Payer Category Payer Unknown [id number] 2024 Unknown [id number] 2024 Self-pay [id number] 2024 Unknown [id number] 1979 Unknown [id number] 2.16.84 0.1.053590.3.579.2.593 1979 Unknown [id number] 2.16.84 0.1.274064.3.579.2.593 1979 Unknown [id number] 2.16.84 0.1.568515.3.579.2.593 1979 Unknown [id number] 2.16.84 0.1.858809.3.579.2.1259 1979 Unknown [id number] 2.16.8 40.1.151457.3.579.2.727 1979 Unknown [id number] 2.16.8 40.1.809039.3.579.2.727 1979 Unknown [id number] 2.16.8 40.1.691141.3.579.2.727 1979 Unknown [id number] 2.16.8 40.1.313705.3.579.2.727 1979 Unknown [id number] 2.16.8 40.1.129239.3.579.2.727 1979 Unknown [id number] 2.16.8 40.1.234584.3.579.2.727 1960 Medicaid [id number] Unknown [id number] Unknown [id number] 2.16.8 40.1.212667.3.579.2.531 Unknown [id number] 2.16.8 40.1.843381.3.579.2.531 Unknown [id number] 2.16.8 40.1.049519.3.579.2.531 Unknown [id number] 2.16.8 40.1.980280.3.579.2.531 Unknown [id number] 2.16.8 40.1.805777.3.579.2.531 Unknown [id number] 2.16.8 40.1.315661.3.579.2.531 Unknown [id number] 2.16.8 40.1.117385.3.579.2.531 Unknown [id number] 2.16.8 40.1.646256.3.579.2.531 Unknown [id number] 2.16.8 40.1.757920.3.579.2.531 Unknown [id number] 2.16.8 40.1.631170.3.579.2.531 Unknown [id number] 2.16.8 40.1.488060.3.579.2.531 Unknown [id number] 2.16.8 40.1.389787.3.579.2.531 Unknown [id number] 2.16.8 40.1.811864.3.579.2.531 Unknown [id number] 2.16.8 40.1.062866.3.579.2.531 Unknown [id number] 2.16.8 40.1.604504.3.579.2.531 Unknown [id number] 2.16.8 40.1.847679.3.579.2.531 Social History Date Type Detail Facility Start: 09-25-2019 End: 09-05-2024 Tobacco smoking status NHIS Smoker (finding) [facility] Start: 1980 Sex Assigned At Female F [facility] Sex Assigned At [facility] Start: 10-28-2022 Tobacco smoking status Heavy t obacco smoker (finding) [facility] Start: 03-01-2024 End: 03-16-2024 Tobacco smoking status NHIS Current some day smoker [facility] Sexual Orientation [facility] Start: 01-15-2010 End: 03-07-2025 Sex Female (finding) [facility] Start: 03-08-2025 End: 04-16-2025 Tobacco smoking status NHIS Smokes tobacco daily (finding) [facility] NEGATED: Highlighted row [facility] Goals Date Patient Goal Desired Activity /State Functional Status Date Assessment Result Facility 01-24-2025 Functional Status N/A [facility] 07-09-2024 Functional Status N/A [facility] 10-09-2023 Functional status Patient at [facility] Work Phone: 11-02-2022 Functional Status N/A [facility] 08-24-2022 Functional Status N/A [facility] 07-31-2022 Functional Status N/A [facility] Mental Status Date Assessment Result Facility 10-09-2023 Cognitive function Cognitive Sta tus Patient at [facility] Work Phone: Clinical Notes 01-14-2022 to 03-14-2025 Note Date & Type Note Facility 03-14-2025 Evaluation note Diagnosis Onset Date Resolution Leukocytosis acute March 14 8:35am Lumbosacral spondylosis acute J une 2024 8:25am Trochanteric bursitis acute Joseph 2024 8:25am Leukocytosis acute April 04 9:39am [facility] Work Phone: 1(558) 557-721406-11-2025 Evaluation note* Diagnosis Onset Date Resolution Status Admit Date Leukocytosis acute March 14, 8:35am Lumbosacral spondylosis acute J une 2024 8:25am Trochanteric bursitis acute Joseph 2024 8:25am Leukocytosis acute April 04 9:39am Leukocytosis acute April 16 1:55pm [facility] Work Phone: 1(954) 489-112906-03-2025 Radiology Diagnostic study [facility] [place] [address] [place] [id number] Ultrasound Report Signed Patient: Rachel Mcgarry MR#: [id number] : 1980 Acct:[id number] Age/Sex: 45 / F ADM Date: 5 Loc: UL Room: Type: REG CLI Attending Dr: Ajit Pettit NP-C Ordering Provider: OLEG Sharp Date of Service: 03/06/25 US/US venous duplex LE BI: Urinary retention;Lower extremity edema Copies to: OLEG Sharp~ BILATERAL LOWER EXTREMITY VENOUS DUPLEX INDICATION: Lateral lower extremity edema. PROCEDURE: Color-flow duplex scanning is used to interrogate the deep venous system of the right and left lower extremities. The common femoral vein, femoral vein and popliteal vein show good compressibility with normal proximal and distal augmentation. The calf veins are compressible. US/US venous duplex LE BI IMPRESSION: NO EVIDENCE FOR DEEP VEIN THROMBOSIS OR PROXIMAL SUPERFICIAL THROMBOPHLEBITIS INTHE RIGHT OR LEFT LOWER EXTREMITY. Impression dictated by: Marcio Goss MD,FACS,FSVS 03/06/2025 1:25 PM Dictation Location: [place] [address] Tech: Janet Krause Transcribed By: ROSA MARIA 03/06/25 132 Dictated By: Marcio Goss MD 03/06/25 1325 Signed By: 03/06/25 1325 [facility] Work Phone: 1(730) 592-765306-03-2025 Radiology Diagnostic study [facility] [address] [address] Ultrasound Report Signed Patient: Rachel Mcgarry MR#: [id number] : 1980 Acct:[id number] Age/Sex: 45 / F ADM Date: 5 Loc: UL Room: Type: REG CLI Attending Dr: Ajit DEJESUS Ordering Provider: OLEG Sharp Date of Service: 03/06/25 US/US renal BI: Recurrent UTI;Sensation of pressure in bladder area;Quinyx AB Copies to: OLEG Sharp~ BILATERAL RENAL AND BLADDER ULTRASOUND CLINICAL HISTORY: Recurrent urinary tract infections and microscopic. COMPARISON: CT 09/05/2024 Estimation of renal size is approximately 12.2 cm on the right and 12.3 cm on the left. No shadowing calculi or hydronephrosis are identified. No renal mass lesions were imaged. There is no perinephric fluid. The urinary bladder is partially distended with a volume of 230 mL. No contour or intraluminal abnormalities are seen. Bilateral ureteral jets are seen. There is no post void bladder residual. US/US renal BI IMPRESSION: NO OBSTRUCTIVE UROPATHY. Impression dictated by: Eda Yañez M.D. 03/06/2025 12:58 PM Dictation Location: [place] [address] Tech: Janet Krause Transcribed By: ROSA MARIA 03/06/25 1258 Dictated By: Eda Yañez MD 03/06/25 1258 Signed By: 03/06/25 1258 [facility] Work Phone: 1(197) 320-150804-23-2025 Hospital Discharge instructions Patient Education 01/24/2025 12:25:32 Urinary Tract Infection, Adult, Npvw-ke-Oint Urinary Tract Infection, Adult A urinary tract infection (UTI) is an infection of any part of the urinary tract. The urinary tractincludes: The kidneys. The ureters. The bladder. The [...] Follow these instructions at home: Medicines Take xkcd-qol-qpoukxv and prescription medicines only as told by [...] a female. Use each tissue one time whenyou wipe. Drink enough fluid to keep your [...] provider. Document Revised: 04/27/2021 Document Reviewed: 05/02/2021 [email or web address] Patient Education 2023 [employer]. Follow Up Care 01/24/2025 11:32:42 With:AJIT PETTIT Address: [address] [place] [address]- Business (1) When:01/27/2025 12:15:31 Comments:Call Dr for diagnosis based follow up [facility] 04-23-2025 Evaluation + Plan noteExtracted from: Title:ED Note Author:Tanvir RIVAS, Hussein Boswell te:01/24/25 UTI symptoms (R39.9: Unspeci fied symptoms and signs involving the genitourinary system) Orders: ciprofloxacin, 500 mg = 1 tab(s), Oral, q12hr, X 3 day(s), # 6 tab(s), Refills(s) 0, Pharmacy: [facility]/pharmacy #[id number], 165, cm, 01/24/25 11:37:00 EDT, Height/Length Dosing, 70.1, kg, 01/24/25 11:37:00 EDT, Weight Dosing fluconazole, 300 mg = 2 tab(s), Tab, Oral, Once, Stop date 01/24/25 12:04:00 EDT, STAT, Start date 01/24/25 12:04:00 EDT, 01/24/25 12:04:00 EDT fluconazole, 150 mg = 1 tab(s), Oral, q7day, take on 01/31/2025, # 2 tab(s), Refills(s) 0, [id number], 165, cm, 01/24/25 11:37:00 EDT, Height/Length Dosing, 70.1, kg, 01/24/25 11:37:00 EDT, Weight Dosing ondansetron, 4 mg = 1 tab(s), Tab-Dis, Oral, Once, Stop date 01/24/25 12:04:00 EDT, STAT, Start date 01/24/25 12:04:00 EDT, 01/24/25 12:04:00 EDT ondansetron, 4 mg = 1 tab(s), Oral, q8hr, PRN Nausea/Vomiting, # 12 tab(s), Refills(s) 0, [id number], 165, cm, 01/24/25 11:37:00 EDT, Height/Length Dosing, 70.1, kg, 01/24/25 11:37:00 EDT, Weight Dosing phenazopyridine, 100 mg = 1 tab(s), Oral, TID, X 7 day(s), # 21 tab(s), Refills(s) 0, [id number], 165, cm, 01/24/25 11:37:00 EDT, Height/Length Dosing, 70.1, kg, 01/24/25 11:37:00 EDT, Weight Dosing phenazopyridine, 100 mg = 1 tab(s), Tab, Oral, Once, Stop date 01/24/25 12:04:00 EDT, STAT, Start date 01/24/25 12:04:00 EDT, 01/24/25 12:04:00 EDT [facility] 04-23-2025 NoteED Patient Education Note Obstetrics and [...] these instructions at home: Medicines ??? Take jcuj-lyr-mqjvqke and prescription medicines only as told by [...] provider. Document Revised: 04/27/2021 Document Reviewed: 05/02/2021 [email or web address] Patient Education ? 2023 [employer] 07-09-2024 Hospital Discharge instructions Patient Education [...] that is high in altitude, where thinner, bobbin drier air causes more fluid loss. Doing [...] of fat or sugar. General instructions Take rocd-emo-ezvvgec and prescription medicines only as told by [...] provider. Document Revised: 04/19/2023 Document Reviewed: 04/19/2023 [email or web address] Patient Education 2023 [employer]. 07/09/2024 14:17:29 Viral Illness, Adult Viral Illness, [...] Medicines to treat symptoms. These can include satw-ftn-tnaikyg medicine for pain and fever, medicines for cough or congestion, and medicines for diarrhea. Antiviral medicines. These medicines are available only for certain types of viruses. Some viral illnesses can be prevented with vaccinations. A common example is the flu shot. Follow these instructions at home: Medicines Take azfs-lsd-wuoewbr and prescription medicines only as told by [...] and water are not available, use hand merchandise handler. Avoid touching your nose, eyes, and mouth, [...] provider. Document Revised: 10/06/2023 Document Reviewed: 07/21/2023 [email or web address] Patient Education 2023 [employer]. Follow Up Care 07/09/2024 12:40:30 With:AJIT PETTIT Address: [address] [place] [address]- Business (1) When:07/12/2024 14:17:20 Comments:Call the office [...] you develop any new or worsening symptoms. [facility] 10-06-2024 NoteED Patient Education Note Infectious Disease [...] Medicines to treat symptoms. These can include xywa-wee-mruhdff medicine for pain and fever, medicines for cough or congestion, and medicines for diarrhea. ? Antiviral medicines. These medicines are available only for certain types of viruses. Some viral illnesses can be prevented with vaccinations. A common example is the flu shot. Follow these instructions at home: Medicines ? Take gqmo-eqm-vgwdmuy and prescription medicines only as told by [...] and water are not available, use hand merchandise handler. ? Avoid touching your nose, eyes, and mouth, especial (more content not included)...[facility]10-06-2024 NoteED Patient Education Note Infectious Disease [...] Medicines to treat symptoms. These can include disv-von-pygvuft medicine for pain and fever, medicines for cough or congestion, and medicines for diarrhea. ? Antiviral medicines. These medicines are available only for certain types of viruses. Some viral illnesses can be prevented with vaccinations. A common example is the flu shot. Follow these instructions at home: Medicines ? Take ypet-lec-bixidxh and prescription medicines only as told by [...] and water are not available, use hand merchandise handler. ? Avoid touching your nose, eyes, and mouth, especial (more content not included)...[facility]10-06-2024 Evaluation + Plan note Extracted from: Title:ED Note Author:Ambrose Cedeño DO Date: Malaise (R53.81: Other malai se) Viral syndrome (B34.9: Viral infection, unspecified) Orders: Basic Metabolic Panel Beta hCG Qual CBC w/ Auto Diff ED Cardiac Monitoring eGFR Hepatic Function Panel Oxygen Saturation Oxygen Therapy PT & PTT Saline Lock Insert Troponin 0 Hr. Troponin 1 Hr. XR Chest Single View [facility] 06-13-[facility]24 [facility] [facility]2024 Discharge summary Author Salazar Cabrera [facility] October 09, 2023 6:42pm Note Date/Time October 09, 2023 1: 22pm [facility] [address] [place] [address] Discharge Summary Signed Patient: Rachel Mcgarry MR#: [id number] : 1980 Acct:[id number] Age/Sex: 43 / F Adm Date: 4 Loc: Room: [address] [place] [address]: Salazar Carbera DO Copies to: OLEG Sharp APRN Shawn J Warner, DO~ Providers Date of Admission: 10/08/23 Date of Discharge: 10/09/23 Discharging Provider: Salazar Cabrera Additional Discharging Provider: Salazar Cabrera Primary Care Provider: Ajit Pettit Consults: 10/07/23 23:27 Consult to Adult Hospitalist Routine 10/08/23 07:21 Consult to machining technician Routine 10/09/23 06:50 Consult to Obstetrics [...] abdominal pain. CT abdomen pelvis done at [facility] showed nonspecific hyperemia and thickening of the small bowel distally suggestive of enteritis but nonacute otherwise and no postoperative complications were noted. She was transferred to [facility] for evaluation by recent surgical team. She was noted to have elevated lactate and given IV hydration as well as Zosyn. Lactate resolved with hydration. She had repeat CTdone at [place] with bloating and pain increasing with liquid intake unchangedfrom previous and no surgical complications again noted. LOCOMOTIVE OBSERVER services followed ongoing through hospital stay. She was also seen by psychiatry with increase insertraline due to reports of depression and suicidal thoughts, [facility]. Date of discharge she [...] % (Auto) 70.1, Lymph % (Auto) 16.5, Henry % (Auto) 9.5, Eos % (Auto) 3.5, Baso % (Auto) 0.4, Nucleat RBC Rel Count 0.1, Neut # (Auto) 9.6 H, Lymph # (Auto) 2.2, Henry # (Auto) 1.3 H, Eos # (Auto) [...] signed by Salazar Cabrera DO> 10/09/23 1842 [facility] Work Phone: 1(374) 507-137301-06-2024 Progress note Author BONG Velez [facility] October 09, 2023 8:22am Note Date/Time October 09, 2023 8: 22am [facility] [address] [place] [id number] Progress Note Signed Patient: Rachel Mcgarry MR#: [id number] : 1980 Acct:[id number] Age/Sex: 43 / F Adm Date: 4 Loc: Room: [address] [place] [address] Type: ADM IN Attending Dr: Salazar Cabrera [...] % (Auto) 70.1, Lymph % (Auto) 16.5, Henry % (Auto) 9.5, Eos % (Auto) 3.5, Baso % (Auto) 0.4, Nucleat RBC Rel Count 0.1, Neut # (Auto) 9.6 H, Lymph # (Auto) 2.2, Henry # (Auto) 1.3 H, Eos # (Auto) 0.5 H, Baso # (Auto) 0.1 10/08/23 22:27: POC Glucose 194 10/08/23 18:21: POC Glucose 265, POC Glucose Comment Glu2: cleaned meter 10/08/23 13:07: POC Glucose 166, POC Glucose Comment Glu2: cleaned meter 10/08/23 10:31: Lactic Acid 1.9 10/08/23 08:20: Urine Color Fertile A, Urine Appearance Turbid A, Urine pH 5.5, Ur Specific Olden > 1.050 H, Urine Protein 30 H, [...] Signed By: <Electronically signed by BONG Velez> 10/09/23821 [facility] Work Phone: 1(449) 864-514201-05-2024 Consult note Author Teo crandall [facility] October 08, 2023 4:59pm Note Date/Time October 08, 2023 11 :30am [facility] [address] [place] [address] Psychiatry Consult Note Signed with Piotr Patient: Rachel Mcgarry MR#: [id number] : 1980 Acct:[id number] Age/Sex: 43 / F Adm Date: 4 Loc: Room: [address] [place] [address] Type : ADM IN Attending Dr: Rosanna [...] negative unless noted below or in HPI [facility] Medical History (Updated 10/08/23 @ 11:22 [...] Color Urine Appearance Urine pH Ur Specific Olden Urine Protein Urine Glucose (UA) Urine Ketones Urine Occult Blood Urine Nitrite Ur Leukocyte Esterase Urine RBC Urine WBC 10/08/23 08:20 RBC Hgb Hct MCV MCH MCHC RDW Plt Count MPV Sodium Potassium Chloride Carbon Dioxide Anion Gap BUN Creatinine Calcium Total Bilirubin AST ALT Alkaline Phosphatase Total Protein Albumin Urine Color Fertile A Urine Appearance Turbid A Urine pH 5.5 Ur Specific Olden > 1.050 H Urine Protein 30 H [...] provided. Documented By: Teo Taylor MD 4 [id number] Signed By: <Electronically signed by Teo Taylor MD> 10/08/23 0665 [facility] Work Phone: 1(271) 691-743501-05-2024 Progress note Author Salazar Cabrera [facility] October 08, 2023 4:41pm Note Date/Time October 08, 2023 11 :44am [facility] [address] [place] [address] Hospitalist Progress Note Signed Patient: Rachel Mcgarry MR#: [id number] : 1980 Acct:[id number] Age/Sex: 43 / F Adm Date: 4 Loc: 3S Room: [address] [place] [address] Type: ADM IN Attending Dr: Rosanna Grullon [...] Lactic acidosis chronic leukocytosis -CT abdomen pelvis?from [facility] showed nonspecific hyperemia and thickening of small bowel distally suggestive of enteritis, nonacute otherwise, no postsurgical complications noted -Repeat CT abdomen pelvis?increasing bibasilar atelectasis, fatty liver, no bowel or urinary tract obstruction, no pelvic hematoma or significant free fluid, otherwise unchanged CT abdomen pelvis -Initial lactate 3.0--> 2.6--> 2.0--> 1.9 -Continue Zosyn, IVF. Afebrile. Scheduled dicyclomine. Symptom management -Advance diet to full liquid -LOCOMOTIVE OBSERVER following Depression -Seen by psychiatry with increase [...] Cabrera, Documented By: Ilene Lopez APRN 02/24 114 Signed By: <Electronically signed by CHRISTINA Lopez> 10/08/23 1613 <Electronically signed by Salazar Cabrera DO> 10/08/23 1641 [facility] Work Phone: 1(111) 755-337401-05-2024 History and physical note Author BONG Velez [facility] October 08, 2023 1:07pm Note Date/Time October 08, 2023 7: 21am [facility] [address] [place] [address] RACK PULLER History & Physical Signed with Addenda Patient: Rachel Mcgarry MR#: [id number] : 1980 Acct:[id number] Age/Sex: 43 / F Adm Date: 4 Loc: Room: [address] [place] [address] Type: ADM IN Attending Dr: Beltran Velez [...] has enteritis. She is cleared from the LOCOMOTIVE OBSERVER post op standpoint and we are signing off. Pt will be transferred to a medical floor for continued management. Addendum Documented By: BONG Velez 10/08/23 1307 Addendum Signed By: <Electronically signed by BONG Velez> 10/08/23 1307 Date of Service: 10/08/2023 LOCOMOTIVE OBSERVER - HPI History of Present Illness Chief Complaint: Abdominal pain with emesis Planned Procedure: S/P TLH 09/28/2023 HPI: Rachel presented to [facility] yesterday with abdominal pain/distension and emesis.Her lactic acid was 3.0,WBS 20k in ER,Sodium [address] scan compatible with enteritis. She was transferred to [facility] for observation and treatment. Pt with Chronic leukocytosis as followed by hematology for 2 years Review of Systems Review of Systems All other systems reviewed & are negative unless noted below or in HPI [facility] Medical History (Updated 10/08/23 @ 11:22 [...] 500 Mg Tablet) 1,000 mg PO Q6H [facility] Stop: 10/06/24 22:59 Dextrose (Dextrose 50% In [...] 600 Mg Tablet) 600 mg PO Q6H [facility] Stop: 10/07/24 01:59 Last Admin: [...] Reason: Nausea And Vomiting Stop: 10/06/24 22:53 LOCOMOTIVE OBSERVER - Exam Physical Exam Vital signs: Temp [...] Present normal affect, suicidal ideation and depressed LOCOMOTIVE OBSERVER - Results Laboratory Results - Last 48 [...] Albumin 3.7, Globulin 2.4, Albumin/Globulin Ratio 1.5 LOCOMOTIVE OBSERVER - A/P (1) Abdominal pain: Plan: Post [...] <Electronically signed by BONG Velez> 10/08/23 1258 [facility] Work Phone: 1(564) 199-169101-05-2024 Consult note Author Rosanna Grullon [facility] October 08, 2023 7:00am Note Date/Time October 08, 2023 1: 06am [facility] [address] [place] [address] Hospitalist Consult Note Signed Patient: Rachel Mcgarry MR#: [id number] : 1980 Acct:[id number] Age/Sex: 43 / F Adm Date: 4 Loc: Room: [address] [place] [address] Type: ADM IN Attending Dr: Beltran Velez MD Copies to: MD Ajit Davis, COACH BUILDER-C CHRISTINA Echavarria MD-BRADLEYS~ HPI DATE OF CONSULTATION: 10/08/23 REQUESTING PROVIDER: Beltran Velez Consult Narrative Reason for Consult: elevated lactic acid, T2DM, leukocytosis HPI: Ms. Mcgarry is a 43-year-old female with a PMH of T2DM, seizure disorder, recent hysterectomy that was transferred here to [facility] to obstetrics for abdominal pain. Hospitalist team has been consulted for management of T2DM, elevated lactic acid and leukocytosis. Patient arrived to the [facility] emergency room via EMS for [...] September 28. She been seen in the [facility] emergency room for vaginal infection and [...] unless noted in the HPI or below. [facility] Medical History (Updated 10/08/23 @ 01:40 [...] 10/10/[address]received at the [facility] Documented By: Namrata Munoz APRN 10/08/23 0106 Signed By: <Electronically signed by CHRISTINA Munoz> 10/08/23 0153 <Electronically signed by Rosanna Grullon MD> 10/08/23 0700 [facility] Work Phone: 1(230) 643-999008-02-2023 [facility] [facility]06-30-2023 Evaluation note* Encounter Date Diagnosis Assessment [...] activities and movements while managing her pain. [facility] Other 01-31-2023 Evaluation note* Encounter Date Diagnosis [...] cervical spine to further evaluate her pain. [facility] Other 01-30-2023 Hospital Discharge instructions Patient Education [...] to keep your urine pale yellow. ?Take vjnn-yhs-qwpmiwg or prescription medicines. ?Eat foods that are high in fiber, such as beans, whole grains, and fresh fruits and vegetables. ?Limit foods that are high in fat and processed sugars, such as fried or sweet foods. General instructions Take pcxw-wed-guocnvn and prescription medicines only as told by [...] the muscles that help control urination. Take ntfo-cbt-mjxjyax and prescription medicines only as told by your health care provider. Contact a health care provider if your symptoms do not improve or get worse. This information is not intended to replace advice given to you by your health care provider. Make sure you discuss any questions you have with your health care provider. Document Released: 07/17/2010 Document Revised: 03/30/2019 Document Reviewed: 03/30/2019 [employer] Patient Education 2020 [employer] Follow Up Care 10/22/2022 11:17:07 With:JORDANA BALDERAS, Joshua Dempsey, URL Address: [address] [place], [place] [id number] Business (1) When: Unknown [facility] Ana Paula [id number] Hospital Discharge instructions Patient Education 08/24/2022 15:50:28 [...] 100 degrees Follow Up Care 07/31/2022 12:32:41 With:Joshuakamini SILVEIRA Address: [facility] [place] [address]- Business (1) When:6 weeks Comments:Call for followup appointment. Monitor the urinary low after the dilation today. Have a great Thanksgiving. [facility]10-28-2022 Hospital Discharge instructions Patient Education 07/31/2022 12:11:34 [...] including vitamins, herbs, eye drops, creams, and aalu-ocw-hwasqlq medicines. ?Whether you are or may be [...] 07/17/2008 Document Revised: 01/09/2020 Document Reviewed: 07/25/2018 [employer] Patient Education 2019 [employer] Follow Up Care 07/24/2022 16:53:57 With:JORDANA BALDERAS, Joshua Dempsey, URL Address: [address] [place] [address] [place], [place] [id number]- When: Unknown Comments:Cysto/ Urodynamics [facility] Ana Paula 05-19-2022 Evaluation note* Encounter Date [...] and GT bursa injection in the future. [facility] Other 04-27-2022 Evaluation note* Encounter Date Diagnosis [...] progress notes from her referring physician at [facility]. I also independently reviewed previous [...] - M79.7) Continue with medication management through [facility]. I will also refer her [...] negative findings were considered in medical decision-making. [facility] Other 04-13-2022 Evaluation note* Encounter Date Diagnosis Assessment Notes Treatment Notes Treatment Clinical Notes Jan, Neck pain (ICD-10 - M54.2) I really do not see any surgical intervention that would be warranted in either her cervical or lumbar spine. I think continue conservative therapy is warranted. Jan, Low back pain at multiple sites (ICD-10 - M54.50) Jan, Fibromyalgia (ICD-10 - M79.7) [facility] Other consult note Author Jasmin Velázquez [facility] May 27, 2022 11:47am Note Date/Time May 27, 2022 11 :30am [facility] [place] [address] Hem/Onc Consult Note - OP Signed Patient: Rachel Mcgarry MR#: [id number] : 1980 Acct:[id number] Age/Sex: 42 / F Type: REG RCR Copies to: [facility]~ HPI Date/Time of Service: Date of Service: 05/27/2022 Time of Service: 11:29 Referring Provider/PCP: Referring Provider: PCP: [facility] - History of Present Illness Reason for Consultation: Leukocytosis Chief Complaint: Patient is here for a referral from Ajit Pettit for leukocytosis. [facility] labs. Patient states that she has been [...] the process of being referred to a cloth sponger. Patient smokes averaging half pack to 1 [...] been very well within the normal range PMF - Medical History Medical History: Medical History [...] cancer. Patient is being referred to a cloth sponger. We instructed her to call back if there is any concern for further definitive guidance and recommendations - Time with Patient Coordination of Care & Counseling Time: Greater than 50% of time spent with patient was for coordination of care (as documented) and jjcf-kd-ybkx counseling of patient and/or family. Dictated By: Jasmin Velázquez MD DD/ [id number] Signed By: <Electronically signed by Jasmin Velázquez MD> 05/27/22 1147 [facility] Work Phone: Evaluation + Plan note Future Appointments Appointment Date:08/18/2022 08:00:00 AM Scheduled Provider: Location:[facility] Appointment Type:Urology CALL PAT Appointment Date:08/24/2022 02:00:00 PM Scheduled Provider: Location:[facility] Appointment Type:Urology FT Appointment Date:08/24/2022 03:00:00 PM Scheduled Provider: Location:[facility] Appointment Type:Urology FT [facility] [place] Paula evaluation + Plan note Future Appointments Appointment Date:09/29/2022 10:15:00 AM Scheduled Provider:Joshua SILVEIRA MD Location:[facility] [place] Appointment Type:URO [facility] Future Appointments Appointment Date:12/29/2022 10:45:00 AM Scheduled Provider:Joshua SILVEIRA MD Location:[facility] [place] Appointment Type:URO Office Visit [facility] [place] evaluation noteNo Assessments Information Available [facility] note[facility] InformationNort [employer] Other evaluation note* Diagnosis Onset Date Resolution Status Iron deficiency acute Leucocytosis acute Right ovarian cyst acute [facility] Work Phone: evaluation noteNo assessment information available [facility] Work Phone: evaluation note* Diagnosis Onset Date Resolution Status Abdominal pain acute Enteritis acute History of depression acute History of leukocytosis acut e IBS (irritable bowel syndrome) acute Leucocytosis acute Metabolic acidosis acute S/P hysterectomy acute T2DM (type 2 diabetes mellitus) acute [facility] Work Phone: evaluation note* Diagnosis Onset Date Resolution Status Chronic pain acute Lumbosacral spondylosis acut e Sacroiliitis acute [facility] Work Phone: evaluation note* Diagnosis Onset Date Resolution Status Chronic pain acute Lumbosacral spondylosis acut e Sacroiliitis acute Chronic pain acute Lumbar radiculopathy acute Lumbosacral spondylosis acut e Sacroiliitis acute [facility] Work Phone: evaluation note* Diagnosis Onset Date Resolution Status Chronic pain acute Lumbosacral spondylosis acut e Sacroiliitis acute Chronic pain acute Lumbar radiculopathy acute Lumbosacral spondylosis acut e Sacroiliitis acute Chronic pain acute Lumbar radiculopathy acute Lumbosacral spondylosis acut e Sacroiliitis acute [facility] Work Phone: Evaluation note* Diagnosis Onset Date Resolution Status Chronic pain acute Lumbar radiculopathy acute Lumbosacral spondylosis acut e Sacroiliitis acute [facility] Work Phone: Evaluation note* Diagnosis Onset Date Resolution Status Admit Date Leukocytosis acute March 14 8:35am [facility] Work Phone: History and physical note Author Abi Sunshine [facility] March 16, 2024 8:19am Note Date/Time March 16, 2024 8:20 am [facility] [address] [place] [address] Gastroenterology H&P Signed Patient: Rachel Mcgarry MR#: [id number] : 1980 Acct:[id number] Age/Sex: 44 / F Adm Date: 4 Loc: Room: Type: [facility] Attending Dr: Abi Sunshine DO [...] <Electronically signed by Abi Sunshine DO> 03/16/24818 [facility] Work Phone: Hiszbkr general Narrative - Reported* Type Description Date [...] infection, bowel i nfection and flu 2011 [facility] Other [facility] general Narrative - Reported* Type Description Date [...] infection, bowel i nfection and flu 2011 [facility] Other Hospital course Narrative No data available for this section [facility] Hospital Discharge instructions No data available for this section [facility] Hospital Discharge instructions Additional Instructions DISCHARGE [...] in an emergency, call the office at [[phone]]. TODAY -Take it easy the rest of [...] FOLLOW UP -Please call the office at [phone] to arrange an appointment to see me in 2 weeks [ ][facility] Work Phone: Hospital Discharge instructions Additional Instructions Follow any previous post-op orders.[facility] Work Phone: Progress note No data available for this section [facility] [place] Reason for visit NarrativeReferral Ajit Pettit NP Lumbar DiscNorth [employer] Other Summary Purpose Family History No Family [...] Date/ Time Advance Directives No June 3:21am Advance Directive Response Recorded Date/ Time Advance Directives No March 08 11:02am Advance Directive Response Recorded Date/ Time Advance Directives No April 13 8:46am Chief Complaint and Reason for Visit Chief [...] Date Unknown January 18, 2025 3:4 5pm Chief Complaint Admit Date Unknown January 18, 2025 3:4 5pm Unknown February 12, 2025 4:07a m Chief Complaint Admit Date Unknown January 18, 2025 3:4 5pm Unknown February 12, 2025 4:07a m Z12.February 15, 2025 9:31a m Unknown February 16, 2025 1:00p m R33.9 February 20, 2025 11:33 am Unknown February 26, 2025 7:43a m Chief Complaint Admit Date Unknown January 18, 2025 3:4 5pm Unknown February 12, 2025 4:07a m Z12.February 15, 2025 9:31a m Unknown February 16, 2025 1:00p m R33.9 February 20, 2025 11:33 am Unknown February 26, 2025 7:43a m N39.0 R39.89 R31.March 06, 2025 8:50a m NEW- Leukocytosis March 14, 2025 8:35 am Leukocytosis March 14, 2025 8:37 am Reason for Visit Admit Date Leukocytosis March 14, 2025 8:35 am Chief Complaint Admit Date Unknown January 18, 2025 3:4 5pm Unknown February 12, 2025 4:07a m Z12.February 15, 2025 9:31a m Unknown February 16, 2025 1:00p m R33.9 February 20, 2025 11:33 am Unknown February 26, 2025 7:43a m N39.0 R39.89 R31.29 March 06, 2025 8:50a m Chief Complaint Admit Date Unknown January 18, 2025 3:4 5pm Unknown February 12, 2025 4:07a m Z12.31 February 15, 2025 9:31a m Unknown February 16, 2025 1:00p m R33.9 February 20, 2025 11:33 am Unknown February 26, 2025 7:43a m N39.0 R39.89 R31.29 March 06, 2025 8:50a m NEW- Leukocytosis March 14, 2025 8:35 am LUMBAR DISC DISORDER WITH MYELOPATHY Mar 8:25am Follow Up 3 Weeks April 04, 2025 9:39a m Leukocytosis April 04, 2025 10:22 am Reason for Visit Admit Date Leukocytosis March 14, 2025 8:35 am Lumbosacral spondylosis March 20, 2025 8:25am Trochanteric bursitis March 20, 2025 8: 25am Leukocytosis April 04, 2025 9:39a m Chief Complaint Admit Date Unknown January 18, 2025 3:4 5pm Unknown February 12, 2025 4:07a m Z12.February 15, 2025 9:31a m Unknown February 16, 2025 1:00p m R33.9 February 20, 2025 11:33 am Unknown February 26, 2025 7:43a m N39.0 R39.89 R31.March 06, 2025 8:50a m NEW- Leukocytosis March 14, 2025 8:35 am LUMBAR DISC DISORDER WITH MYELOPATHY Mar 8:25am Follow Up 3 Weeks April 04, 2025 9:39a m Leukocytosis April 04, 2025 10:22 am Ref: Dr. Pratt - Elevated WBC April 16, 2025 1:55pm Reason for Visit Admit Date Leukocytosis March 14, 2025 8:35 am Lumbosacral spondylosis March 20, 2025 8:25am Trochanteric bursitis March 20, 2025 8: 25am Leukocytosis April 04, 2025 9:39a m Leukocytosis April 16, 2025 1:55 pm Chief Complaint Admit Date Unknown February 12, 2025 4:07a m Z12.February 15, 2025 9:31a m Unknown February 16, 2025 1:00p m R33.9 February 20, 2025 11:33 am Unknown February 26, 2025 7:43a m N39.0 R39.89 R31.29 March 06, 2025 8:50a m NEW- Leukocytosis Marilyn 11th, 2025 8:35 am LUMBAR DISC DISORDER WITH MYELOPATHY Mar 8:25am Follow Up 3 Weeks April 04, 2025 9:39a m Ref: Dr. Pratt - Elevated WBC April 16, 2025 1:55pm Leukocytosis April 18, 2025 9:49 am D72.829 April 18, 2025 9:57 am Assessments No Assessments Information AvailableNo Assessments Information AvailableNo Assessments Information AvailableNo Assessments Information AvailableNo Assessments Information AvailableNo Assessments Information Available Additional Source Comments INFORMATION SOURCE (unrecogn ized section and content) DATE CREATED AUTHOR 07/25/2019 [facility] DATE CREATED AUTHOR AUTHOR'S ORGANIZ ATION 02/15/2023 [facility] DATE CREATED AUTHOR AUTHOR'S ORGANIZ ATION 10/21/2023 [facility] EPIC DATE CREATED AUTHOR AUTHOR'S ORGANIZ ATION 07/10/2024 [facility] DATE CREATED AUTHOR AUTHOR'S ORGANIZ ATION 02/11/2025 [facility] DATE CREATED AUTHOR AUTHOR'S ORGANIZ ATION 02/28/2025 [facility] DATE CREATED AUTHOR AUTHOR'S ORGANIZ ATION 05/03/2025 [facility] REASON FOR VISIT (unrecogniz ed section and content) LEFT L3,4 TRANSFORAMINAL EPIDURAL STEROID INJ/ELREF BY [facility] FOR LUMBAR DISC HERNIATIONFOLLOW UP AFTER LEFT LTRBILATERAL SACROILIAC JOINT INJECTIONINCREASE BACK PAIN RADIATING LLELEFT L3 AND L4 TRANSFORAMINAL EPIDURAL STEROID INJECTIONF/U INCREASE IN LOW BACK PAIN AND LEFT LE WEAKNESS-LOST TO FOLLOW UP LAST TIMEL4- 5 EPIDURAL STEROID INJ/ELRIGHT SACROILIAC JOINT INJ/EL Care Teams (unrecognized sec tion and content) Team Status: Inactive Member Role Status Dates Services [facility] Primary Care Provider Active OLEG Sharp Attending Provider Active Team Status: Active Member Role Status Dates Jasmin Velázquez MD Attending Provider Active Services [facility] Primary Care Provider Active Team Status: Inactive Member Role Status Dates Services [facility] Primary Care Provider Titus Alvarado DO Emergency Provider Active Team Status: Inactive Member Role Status Dates Services [facility] Primary Care Provider Ac tive Ajit E Spasic , COACH BUILDER-C Attending Provider Active Team Status: Inactive Member Role Status Dates Services [facility] Primary Care Provider Ac tive Medardo Bergeron INTELLIGENCE ANALYST Emergency Provider Active Team Status: Active Member Role Status Dates Services [facility] Primary Care Provider Ac tive Team Status: Inactive Member Role Status Dates Ajit E Spasic , COACH BUILDER-C Attending Provider Active Services [facility] Primary Care Provider Ac tive Team Status: Inactive Member Role Status Dates Services [facility] Primary Care Provider Ac tive Kyler Miramontes MD Attending Provider Active Team Status: Inactive Member Role Status Dates Ajit Cat Spasic , COACH BUILDER-C Attending Provider Active Team Status: Active Member Role Status Dates . [facility] Primary Care Provider Active Team Status: Inactive Member Role Status Lorie Miramontes MD Attending Provider Active . [facility] Primary Care Provider Active Team Status: Inactive Member Role Status Dates Ajit Cat Spasic , COACH BUILDER-C Attending Provider Active NON STAFF Primary Care Provider Active Team Status: Active Member Role Status Dates Ajit Cat Spasic , COACH BUILDER-C Primary Care Provider Active Team Status: Inactive Member Role Status Dates Ajit Cat Spasic , COACH BUILDER-C Primary Care Provider, Attending Provider Active Team Status: Inactive Member Role Status Lorie Miramontes MD Attending Provider Active Ajit E Spasic , COACH BUILDER-C Primary Care Provider Active Team Status: Inactive Member Role Status Dates Ajit E Spasic , COACH BUILDER-C Primary Care Provider Active Kyler Miramontes MD Attending Provider Active Team Status: Inactive Member Role Status Dates Ajit E Spasic , COACH BUILDER-C Primary Care Provider Active Carri Manuel DO [...] JULIANA Other Provider Active Silvia Galeas , INTELLIGENCE ANALYST Other Provider Active Evan Jackson , Other Provider Active Familia Blair MD Other Provider Active Brandon Dowling , DO Other Provider Active Florin Cruz MD Other Provider Active Vivi Hollwoay MD Other Provider Active Ilene Lopez , INTELLIGENCE ANALYST Other Provider Active Lilly Alexandre MD Other Provider Active Rangel Tyler MD Other Provider Active Aidan Cardenas MD Other Provider Active Holden De La Cruz MD Other Provider Active Leodan Catalan , DO Other Provider Active Palma Bright MD Other Provider Active Gabriele Vasquez MD Other Provider Active Karina Colvin , COACH BUILDER-C Other Provider Active Gaurav Peraza MD Other Provider Active Mike Guzman MD Other Provider Active Antonio Teague MD Other Provider Active Jorge Galdamez MD Other Provider Active Kourtney Longoria , DO Other Provider Active Bola Sullivan , DO Other Provider Active Lazaro Dunne , DO Other Provider Active Elvira Nava , INTELLIGENCE ANALYST Other Provider Active Salazar Cabrera , DO Attending Provider, Other Provider Active Naila Lema MD Other Provider Active Namrata Munoz , INTELLIGENCE ANALYST Other Provider Active Carole Lundy , INTELLIGENCE ANALYST Other Provider Active Rosanna Grullon MD Other Provider Active Girish Tolentino MD Other Provider Active Beryl Holguin , INTELLIGENCE ANALYST Other Provider Active Mabel Lackey , DO Other Provider Active Talita Noel RN Other Provider Active Teo Taylor MD Other Provider Active Ajit Cat Pettit , COACH BUILDER-C Primary Care Provider Active Team Status: Inactive Member Role Status Dates Ajit Pettit , COACH BUILDER-C Primary Care Provider Active Diego Noble , DO Emergency Provider Active Team Status: Inactive Member Role Status Dates Ajit Pettit , COACH BUILDER-C Attending Provider Active Start: January 18, 2024 End: January 18, 2024 Team Status: Inactive Member Role Status Dates Ajit Millanc , COACH BUILDER-C Primary Care Provi tirso, Attending Provider Active Start: January 21, 2024 End: January 21, 2024 Team Status: Inactive Member Role Status Dates Ajit Millanc , COACH BUILDER-C Primary Care Provi tirso, Attending Provider Active Start: February 04, 2024 End: February 04, 2024 Team Status: Inactive Member Role Status Dates Ajit Pettit , COACH BUILDER-C Primary Care Provi tirso, Attending Provider Active Start: February 09, 2024 End: February 09, 2024 Team Status: Inactive Member Role Status Dates Ajit Millanc , COACH BUILDER-C Primary Care Provider Active Start: February 21, 2024 End: February 21, 2024 Kyler Miramontes MD Attending Provider Active Sta rt: February 21, 2024 End: February 21, 2024 Team Status: Inactive Member Role Status Dates Ajit Pettit , COACH BUILDER-C Primary Care Provider Active Start: March 01, 2024 End: March 01, 2024 Kyler Miramontes MD Attending Provider Active Sta rt: March 01, 2024 End: March 01, 2024 Team Status: Active Member Role Status Dates Ajit Pettit , COACH BUILDER-C Primary Care Provider Active Start: March 01, 2024 Kyler Miramontes MD Attending Provider, Other Provider Active Start: March 01, 2024 Team Status: Inactive Member Role Status Dates Ajit Pettit COACH BUILDER-C Primary Care Provider Active Start: March 02, 2024 End: March 02, 2024 Kyler Miramontes MD Attending Provider Active Sta rt: March 02, 2024 End: March 02, 2024 Team Status: Inactive Member Role Status Dates Ajit Pettit COACH BUILDER-C Primary Care Provider Active Start: March 08, 2024 End: March 08, 2024 Kyler Miramontes MD Attending Provider Active Sta rt: March 08, 2024 End: March 08, 2024 Team Status: Inactive Member Role Status Dates Ajit Pettit , COACH BUILDER-C Primary Care Provider Active Start: March 16, 2024 End: March 16, 2024 Abi Sunshine DO Attending Provider Active St art: March 16, 2024 End: March 16, 2024 Team Status: Active Member Role Status Dates Ajit Pettit COACH BUILDER-C Primary Care Provider Active Start: March 16, 2024 Abi Sunshine DO Attending Provider, Other Provider Active Start: March 16, 2024 Team Status: Inactive Member Role Status Dates Ajit Pettit COACH BUILDER-C Primary Care Provider Active Start: April 11, 2024 End: April 11, 2024 Alicia Villalobos NP Attending Provider Active Start: April 11, 2024 End: April 11, 2024 Team Status: Inactive Member Role Status Dates Ajit Pettit COACH BUILDER-C Attending Provider Active Start: May 16, 2024 End: May 16, 2024 Team Status: Inactive Member Role Status Dates Ajit Cat Lariossic , COACH BUILDER-C Primary Care Provi tirso, Attending Provider Active Start: June 08, 2024 End: June 08, 2024 Team Status: Inactive Member Role Status Dates Ajit Cat Lariossic , COACH BUILDER-C Primary Care Provi tirso, Attending Provider Active Start: July 04, 2024 End: July 04, 2024 Team Status: Inactive Member Role Status Dates Ajit E Harrietsic , COACH BUILDER-C Primary Care Provider Active Start: July 06, 2024 End: July 06, 2024 Jono Ferrari PA-C Emergency Provider Active Start: July 06, 2024 End: July 06, 2024 Team Status: Inactive Member Role Status Dates Ajit Cat Millanc , COACH BUILDER-C Primary Care Provi tirso, Attending Provider Active Start: July 24, 2024 End: July 24, 2024 Team Status: Inactive Member Role Status Dates Ajit E Harrietsic , COACH BUILDER-C Primary Care Provider Active Start: January 18, 2025 End: January 18, 2025 Praveen Rivero DO Attending Provider Active S tart: January 18, 2025 End: January 18, 2025 Team Status: Inactive Member Role Status Dates Ajit E Harrietsic , COACH BUILDER-C Primary Care Provider Active Start: February 12, 2025 End: February 12, 2025 Anisa Chong DO Attending Provider Active Start: February 12, 2025 End: February 12, 2025 Team Status: Inactive Member Role Status Dates Ajit Pettit , COACH BUILDER-C Primary Care Provi tirso, Attending Provider Active Start: February 15, 2025 End: February 15, 2025 Team Status: Inactive Member Role Status Dates Praveen Bermudez DO Attending Provider Active Start : February 16, 2025 End: February 16, 2025 Team Status: Inactive Member Role Status Dates Ajit E Spasic , COACH BUILDER-C Attending Provider Active Start: February 20, 2025 End: February 20, 2025 Team Status: Inactive Member Role Status Dates NON STAFF Attending Provider Active Start: [place] 2024 End: February 26, 2025 Team Status: Inactive Member Role Status Dates Ajit E Harrietsic , COACH BUILDER-C Primary Care Provi tirso, Attending Provider Active Start: March 06, 2025 End: March 06, 2025 Team Status: Inactive Member Role Status Dates Ajit Cat Spasic , COACH BUILDER-C Primary Care Provi tirso, Referring Provider Active Start: March 14, 2025 End: March 14, 2025 Enrique Pratt MD Attending Provider Active Start: March 14, 2025 End: March 14, 2025 Team Status: Active Member Role Status Dates Ajit Pettit , COACH BUILDER-C Primary Care Provi tirso, Referring Provider Active Start: March 14, 2025 Jane Woo , COACH BUILDER-C Attending Provider Active Start: March 14, 2025 Team Status: Inactive Member Role Status Dates Ajit Pettit , COACH BUILDER-C Primary Care Provider Active Start: February 15, 2025 End: February 15, 2025 Ajit Pettit , COACH BUILDER-C Attending Provider Active Start: February 15, 2025 End: February 15, 2025 Team Status: Inactive Member Role Status Dates Ajit Pettit , COACH BUILDER-C Primary Care Provider Active Start: March 06, 2025 End: March 06, 2025 Ajit Pettit , COACH BUILDER-C Attending Provider Active Start: March 06, 2025 End: March 06, 2025 Team Status: Inactive Member Role Status Dates Ajit Pettit , COACH BUILDER-C Primary Care Provider Active Start: March 14, 2025 End: March 14, 2025 Ajit Pettit , COACH BUILDER-C Referring Provider Active Start: March 14, 2025 End: March 14, 2025 Enrique Pratt MD Attending Provider Active Start: March 14, 2025 End: March 14, 2025 Team Status: Inactive Member Role Status Dates Ajit Pettit , COACH BUILDER-C Primary Care Provider Active Start: March 20, 2025 End: March 20, 2025 Cb Raines MD Attending Provider Active Star t: March 20, 2025 End: March 20, 2025 Team Status: Inactive Member Role Status Dates Ajit Pettit , COACH BUILDER-C Primary Care Provider Active Start: April 04, 2025 End: April 04, 2025 Enrique Pratt MD Attending Provider Active Start: April 04, 2025 End: April 04, 2025 Team Status: Active Member Role Status Dates Ajit Pettit , COACH BUILDER-C Primary Care Provider Active Start: April 04, 2025 Ajit Pettit COACH BUILDER-C Referring Provider Active Start: April 04, 2025 Jane Woo NP-C Attending Provider Active Start: April 04, 2025 Team Status: Inactive Member Role Status Dates Ajit Pettit COACH BUILDER-C Primary Care Provider Active Start: April 16, 2025 End: April 16, 2025 Leodan Patricia MD Attending Provider Active Sta rt: April 16, 2025 End: April 16, 2025 Enrique Pratt MD Referring Provider Active Start: April 16, 2025 End: April 16, 2025 Team Status: Active Member Role Status Dates Ajit Pettit COACH BUILDER-C Primary Care Provider Active Start: April 18, 2025 Ajit Pettit COACH BUILDER-C Referring Provider Active Start: April 18, 2025 Jane Woo NP-C Attending Provider Active Start: April 18, 2025 Team Status: Inactive Member Role Status Dates Ajit Pettit COACH BUILDER-C Primary Care Provider Active Start: April 18, 2025 End: April 18, 2025 Leodan Patricia MD Attending Provider Active Sta rt: April 18, 2025 End: April 18, 2025 Goals (unrecognized section and content) [...] BE BASED ON THE PRIMARY CLINICAL RECORDS. [employer] provides no warranty or guarantee of the accuracy or completeness of information in this document.
--- NOTE | 2025-05-05 11:04 | XR_ITS ---
The [address] [address] Patient Name: RACHEL MCGARRY MRN: [id number] date: 1980 Sex: F Assigned Patient Location: ER Current Patient Location: ER Accession/Order Number: [id number] Exam Date: 05/05/2025 11:51 Report Date: 05/05/2025 11:53 At the request of: ELISHA WESTFALL MD Procedure: XR ankle LT min 3V XR ankle LT min 3V 05/05/2025 11:34 AM SIGNS AND SYMPTOMS: Left ankle pain PROTOCOL: Frontal, lateral, and oblique radiographs of the left ankle COMPARISON: None FINDINGS: There is a well-corticated bony structure separate from the tip of the lateral malleolus suggesting previous avulsive-type injury. No acute displaced fracture. The ankle mortise is preserved. There is soft tissue swelling greatest laterally. XR/XR ankle LT min 3V IMPRESSION: No acute displaced fracture. Soft tissue swelling is noted greatest laterally. Impression dictated by: Dar Messina M.D. 05/05/2025 11:53 AM Dictation Location: [place] [id number] Electronically authenticated by: [id number] Y Date: 05/05/2025 11:53
--- NOTE | 2025-05-05 11:14 | ED.GENADUL1 ---
HPI HPI - General Adult General Chief complaint: Extremity Injury, Lower Stated complaint: LEFT FOOT PAIN Time Seen by Provider: 05/05/25 11:00 History of Present Illness HPI narrative: 45-year-old female presents for left ankle pain. She twisted it yesterday while walking and points to the lateral malleolus. She has been trying to stay off of it. She sprained that ankle before but never fractured it. No other injury was sustained. No pain in the foot. The pain is moderate. Related Data Home Medications ?Medication ?Instructions ?Recorded ?Confirmed divalproex 250 mg tablet,delayed 250 mg PO DAILY 04/20/23 02/28/25 release divalproex 500 mg tablet,extended 500 mg PO BID 04/20/23 02/28/25 release 24 hr doxazosin 2 mg tablet 2 mg PO DAILY 04/20/23 02/28/25 ergocalciferol (vitamin D2) 1,250 1,250 mcg PO DAILY 04/20/23 02/28/25 mcg (50,000 unit) capsule ferrous sulfate 325 mg (65 mg 325 mg PO DAILY 04/20/23 02/28/25 iron) tablet (FeroSul) gabapentin 800 mg tablet 800 mg PO TID 04/20/23 02/28/25 metformin 500 mg tablet,extended 500 mg PO DAILY 04/20/23 02/28/25 release 24 hr dulaglutide 3 mg/0.5 mL 3 mg subcut .weekly 03/26/24 02/28/25 subcutaneous pen injector (Trulicity) meloxicam 15 mg tablet 15 mg PO DAILY 03/26/24 02/28/25 multivitamin-ferrous 1 tab PO Q24H 03/26/24 02/28/25 fumarate-folic acid 18 mg-400 mcg tablet (Spectravite Women) sertraline 100 mg tablet 100 mg PO Q24H 03/26/24 02/28/25 simvastatin 20 mg tablet 20 mg PO DAILY 03/26/24 02/28/25 diazepam 10 mg tablet 10 mg PO QPM 11/18/24 02/28/25 melatonin 10 mg capsule 10 mg PO QPM 11/18/24 02/28/25 promethazine 25 mg tablet 25 mg PO BID PRN nausea and 11/18/24 02/28/25 vomiting furosemide 20 mg tablet 20 mg PO DAILY 02/26/25 02/28/25 ondansetron 4 mg disintegrating 4 mg PO Q8H PRN nausea and vomiting 02/26/25 02/28/25 tablet Previous Rx's ?Medication ?Instructions ?Recorded hydrochlorothiazide 12.5 mg tablet 12.5 mg PO DAILY #3 tabs 02/16/25 dicyclomine 10 mg capsule 10 mg PO QID PRN abdominal pain 02/26/25 #20 caps ondansetron 4 mg disintegrating 4 mg PO Q6H PRN nausea and 02/26/25 tablet vomiting #20 tabs ibuprofen 800 mg tablet 800 mg PO Q8H PRN pain #20 tabs 05/05/25 Allergies Allergy/AdvReac Type Severity Reaction Status Date / Time metoclopramide (From Reglan) Allergy Intermediate shaking Verified 02/26/25 06:34 amitriptyline Allergy dizzy Verified 02/26/25 06:34 latex Allergy hives Verified 02/26/25 06:34 sulfamethoxazole (From Allergy Hives Verified 02/26/25 06:34 Bactrim) tramadol (From Ultram) Allergy seizures Verified 02/26/25 06:34 trimethoprim (From Bactrim) Allergy Hives Verified 02/26/25 06:34 Opioid HPI Opioid Management Most Recent Opioid Data: Last Pain Scale 8 02/28/25, 19:44 Review of Systems ROS Narrative A ten point review of systems is negative except as noted above. PFSH PFS Social History Smoking status: Current every day smoker Little interest or pleasure in doing things: not at all Feeling down, depressed, or hopeless: not at all Exam Narrative Exam Narrative: Nurses note and vital signs reviewed and patient is not hypoxic. General: The patient appears well and in no apparent distress. Patient is resting on cart. Skin: Warm, dry, no pallor noted. There is no rash noted. Head: Normocephalic, atraumatic Eye: Normal conjunctiva, no drainage Ears, Nose, Mouth, and Throat: oral mucosa is moist. Nares patent. Cardiovascular: Regular Rate and Rhythm Respiratory: Patient is in no distress, no accessory muscle use, lungs are clear to auscultation, no wheezing, rales or rhonchi Back: non-tender GI: Soft and nontender Musculoskeletal: The left ankle is examined. There is some mild swelling over the lateral malleolus and the skin is intact there. She has some tenderness there. She has no tenderness in the foot including the fifth metatarsal area Neurological: A&O, normal speech Psychiatric: Cooperative Medical Decision Making MDM Narrative Medical decision making narrative: X-rays are negative per radiologist. Lambert wrap and air splint applied, application checked by me and found to be appropriate, she is neurovascular intact. She is also placed on crutches. Treatment diagnosis and follow-up were discussed with the patient. Differential Diagnosis Differential Diagnosis: Fracture, sprain Imaging Data Ankle x-ray: Radiologist's impression: ITS Impressions Ankle X-Ray 05/05/25 11:04 IMPRESSION: No acute displaced fracture. Soft tissue swelling is noted greatest laterally. Impression dictated by: Dar Messina M.D. 05/05/2025 11:53 AM Dictation Location: [employer] Electronically authenticated by: [id number] Y Date: 05/05/2025 11:53 Discharge Plan Discharge Chief Complaint: Extremity Injury, Lower Clinical Impression: Left ankle sprain Patient Disposition: Home, Self-Care Time of Disposition Decision: 12:04 Condition: Good Mode of Transportation: Private Vehicle Prescriptions / Home Meds: New ibuprofen 800 mg tablet 800 mg PO Q8H PRN (Reason: pain) Qty: 20 0RF No Action Trulicity 3 mg/0.5 mL pen injector 3 mg SUBCUT .weekly meloxicam 15 mg tablet 15 mg PO DAILY Spectravite Women 18-400 mg-mcg tablet 1 tab PO Q24H sertraline 100 mg tablet 100 mg PO Q24H simvastatin 20 mg tablet 20 mg PO DAILY furosemide 20 mg tablet 20 mg PO DAILY ondansetron 4 mg tablet,disintegrating 4 mg PO Q8H PRN (Reason: nausea and vomiting) ondansetron 4 mg tablet,disintegrating 4 mg PO Q6H PRN (Reason: nausea and vomiting) Qty: 20 0RF dicyclomine 10 mg capsule 10 mg PO QID PRN (Reason: abdominal pain) Qty: 20 0RF divalproex 250 mg tablet,delayed release (DR/EC) 250 mg PO DAILY divalproex 500 mg tablet extended release 24 hr 500 mg PO BID doxazosin 2 mg tablet 2 mg PO DAILY ergocalciferol (vitamin D2) 1,250 mcg (50,000 unit) capsule 1,250 mcg PO DAILY ferrous sulfate [FeroSul] 325 mg (65 mg iron) tablet 325 mg PO DAILY gabapentin 800 mg tablet 800 mg PO TID metformin 500 mg tablet extended release 24 hr 500 mg PO DAILY diazepam 10 mg tablet 10 mg PO QPM melatonin 10 mg capsule 10 mg PO QPM promethazine 25 mg tablet 25 mg PO BID PRN (Reason: nausea and vomiting) hydrochlorothiazide 12.5 mg tablet 12.5 mg PO DAILY Qty: 3 0RF Print Language: Lao Instructions: Ankle Sprain (ED), Crutch Instructions (ED), Ice Pack Application (ED) Additional Instructions: Hold meloxicam while on ibuprofen. Referrals: [facility] [Primary Care Provider] - 1 week
== END 2025-05-05 12:19 | disposition home or self-care (01) ==
PROVIDERS: Emergency Provider Emergency Medicine
DX: S93.402A Sprain of unspecified ligament of left ankle, initial encounter (principal); X50.1XXA Overexertion from prolonged static or awkward postures, initial encounter; F17.200 Nicotine dependence, unspecified, uncomplicated
CPT/HCPCS: 73610; 99283

== ENCOUNTER 2025-05-25 18:53 | Emergency (ER) | payer OTHER, SELFPAY ==
--- OUTSIDE RECORDS SUMMARY | 2025-05-25 19:28 | XMS_ITS | CCD ---
Author Organization [facility] CliniSypr Care Team Providers Care Supervisor Modern Languages Name Role Phone Piero Pettita Cat Primary Care Provider Wilver Ajit E Attending Provider [phone] [facility] Primary Care Provider [phone] [facility] Primary Care Provider [phone] Wilver Ajit E Attending Provider [phone] Kyler Miramontes Unavailable Girish Callaway Unavailable [facility] Primary Care Prov ider CHRISTINA Bergeron Emergency Provider [phone] Wilver LADLE HANDLER-C Ajit Shelton Attending Provider DO Rod Alvarado Emergency Provider MD Jasmin Velázquez Attending Provider [facility] Primary Care Provider MD Jasmin Velázquez Attending Provider [facility] Primary Care Provider [phone] PIERO PETTITA Cat Primary Care Physician [phone] [facility] Primary Care Prov ider MD Kyler Miramontes Attending Provider OLEG Pettit Attending Provider [facility] Primary Care Prov ider MD Kyler Miramontes Attending Provider [phone] MEREDITH Pettit-Jorge Shelton Attending Provider MARKER ., [...] Care Provider UnavailMD Kyler Pulido Attending Provider [facility], . Primary Care Provider Spasic, LADLE HANDLER-C Ajit E Primary Care Provider Spasic, LADLE HANDLER-C Ajit E Attending Provider [facility] Primary Care Prov ider Visci, DO Ferguson Attending Provider Spasic, LADLE HANDLER-C Ajit E Primary Care Provider [phone] Visci, DO Carri Attending Provider Spasic, LADLE HANDLER-C Ajit E Primary Care Provider [phone] Visci, DO Ferguson Attending Provider MD Beltran Velez Admit Provider [phone] JULIANA Calderon Other Provider Unavailable JULIANA Danielle Other Provider Unavailable JULIANA Brar Other Provider Unavailable JULIANA Flor Other Provider Unavailable JULIANA Manzano Other Provider Unavailable JULIANA Sun Other Provider Unavailable Adal, FURNITURE FINISHER APPRENTICEHuong Ramirez Other Provider DO Evan Jackson Other [...] DO Salazar Cabrera Attending Provider DO Salazar Caberra Other Provider MD Naila Lema Other Provider CHRISTINA Munoz Other Provider CHRISTINA Lundy Other Provider MD Rosanna Grullon Other Provider MD Girish Tolentino Other Provider CHRISTINA Holguin Other Provider DO Mabel Lackey Other Provider JULIANA Noel Other Provider Unavailable MD eTo Taylor Other Provider DO Diego Noble Emergency Provider CARRI MANUEL Attending Unavailable Spasic, LADLE HANDLER-C Ajit E Attending Provider Spasic, LADLE HANDLER-C Ajit E Attending Provider Spasic, LADLE HANDLER-C Ajit E Primary Care Provider MD Kyler Miramontes Attending Provider DO Abi Sunshine Attending Provider Spasic, LADLE HANDLER-C Ajit E Primary Care Provider Spasic, LADLE HANDLER-C Ajit E Attending Provider Spasic, LADLE HANDLER-C Ajit E Primary Care Provider Spasic, LADLE HANDLER-C Ajit E Primary Care Provider Ambrose Cedeño Attending Unavailable EVELYN Ferrari Emergency Provider Spasic LADLE HANDLER-C, Ajit E Primary Care Provider Praveen Rivero DO Attending Provider [phone] Laura Marte Attending Unavailable Ambrose Cedeño Attending Unavailable Anisa Chong DO Attending Provider Joshua SILVEIRA Attending Unavailable SPASIC, AJIT E Referring Unavailable Laura Marte Attending Unavailable Spasic LADLE HANDLER-C, Ajit E Attending Provider Praveen Bermudez DO Attending Provider [phone] NON STAFF Attending Provider Unavailable Spasic LADLE HANDLER-C, Ajit E Referring Provider Chilo LADLE HANDLER-C, Jane Shelton Attending Provider Spasijorge LADLE HANDLER-C, Ajit E Referring Provider Terence BALDERAS, Enrique Ballard Attending Provider Cb Raines MD Attending Provider Chilo HARPER-C, Jane Shelton Attending Provider Leodan Patricia MD Attending Provider Terence BALDERAS, Enrique Ballard Referring Provider [phone] Spasic LADLE HANDLER-C, Ajit E Primary Care Provider Chilo LADLE HANDLER-C, Jane Shelton Attending Provider Christian Rodriguez DO Attending Provider [phone] Chilo LADLE HANDLER-CJane Attending Provider Spasic, Ajit E Admitting Unavailable [...] E Primary Care Unavailable Ly, Abi Ackerman Attending Unavailable LyAbi Admitting Unavailable Spasic, Ajit E Primary Care Unavailable FerrariJono Attending Unavailable Jono Ferrari Admitting Unavailable Spasic, Ajit E Primary Care Unavailable Praveen Rivero Attending Unavailable Praveen Rivero Admitting Unavailable Spasic, Ajit E Primary Care Unavailable Marker, Anisa Abdi Attending Unavailable Marker, Anisa Abdi Admitting Unavailable PayPraveen Attending Unavailable PayPraveen Admitting Unavailable NON STAFF Attending Unavailable NON [...] Ajit Cat Primary Care Unavailable Spasic, Ajit Shelton Admitting Unavailable Spasic, Ajit E Attending Unavailable Spasic, Ajit E Admitting Unavailable Spasic, Ajit E Attending Unavailable Ajit Rose Attending Provider [phone] Ajit Rose Primary Care Provider [phone] Mony Lepe DO Attending Provider [phone] Unavailable Unavailable Unavailable Allergies Allergy Classification Reported Allergen(s) Allergy Type Date of Onset Reaction(s) Facility Opioid Agonists (1 source) traMADol Drug Allergy 09-24-20 [facility] Serotonin Reuptake Inhibitors (SSRIs) (1 source) Escitalopram Drug Allergy 09-24-20 Difficulty Breathing [facility] (20 sources) Escitalopram; Translations: [escitalopram] Drug Allergy 09-24-20 Difficulty Breathing [facility] (20 sources) traMADol; Translations: [tramadol] Drug Allergy 09-24-20 Seizure, Unknown, seizures [facility] (20 sources) Amitriptyline; Translations: [Amitriptyline] Drug Allergy 05-27-20 [facility] (20 sources) natural latex rubber; Translations: [Latex, Natural Rubber] Allergy to substance 05-27-20 Unknown Reaction, [facility] (20 sources) Sulfamethoxazole; Translations: [sulfamethoxazole] Drug Allergy 05-27-20 [facility] (20 sources) Trimethoprim; Translations: [trimethoprim] Drug Allergy 05-27-20 [facility] (11 sources) Latex; Translations: [latex] Drug allergy Weal (disorder) [facility] (10 sources) Sulfamethoxazole / Trimethoprim; Translations: [sulfamethoxazole-tr imethoprim] Drug Allergy Unknown (qualifier value) [facility] (1 source) Sulfamethoxazole / Trimethoprim Drug Allergy [facility] (1 source) Ultra Juanacrlos Gold Drug allergy (disorder) [facility] (20 sources) nonoxynol 9; Translations: [nonoxynol 9] Allergy to substance 09-16-20 [facility] (4 sources) traMADol; Translations: [Ultram] Drug Allergy [facility] Repository Medications Current Medications Medication Drug Class(es) Dates Sig (Normalized) Sig (Original) Tylenol (20 sources) Start: 07-31-2022 Tylenol Oral, Refills(s) 0 Start Date: 07/31/22 Status: Ordered Repeat number: 1 Start: 07-31-2022 Tylenol Oral, Refills(s) 0 Start Date: 07/31/22 Status: Ordered Start: 03-04-2022 take 1 capsule by mo uth twice daily Start: 03-04-2022 Acetaminophen (Tylenol) 325 [...] day(s), # 6 tab(s), Refills(s) 0, Pharmacy: [facility]/pharmacy #[id number], 165, cm, 01/24/25 11:37:00 EDT, Height/Length [...] PO Twice daily as needed for IBS 1 October 09, 2023 2:16pm March 02, [...] D2 Compound Start: 06-30-2023 Start: 06-30-2023 take 65611 [IU] by m outh every week Ergocalciferol (Vitamin D2) Active 58034 UNIT PO every week June 30, 2023 12:00am ferrous sulfate 325 mg oral tablet (20 sources) Start: 07-24-2024 take 1 tablet by saul once daily Start: 05-18-2022 End: 09-28-2023 take [...] 01/31/2025, # 2 tab(s), Refills(s) 0, Pharmacy: [facility]/pharmacy #[id number], 165, cm, 01/24/25 11:37:00 EDT, Height/Length Dosing, [...] Start: 10-27-2019 take 2 tablets by mo uth three times daily LORazepam 0.5 mg Tab [...] Daily June 08, 2017 12:00am Multivitamin Tablet (11 sources) Start: 06-08-2017 take 1 tablet by [...] 12:00am oxybutynin chloride 5 mg oral tablet (7 sources) Cholinergic Muscarinic Antagonist Start: 03-13-2025 take 1 tablet by mouth twice daily phenazopyridine hydrochloride 100 mg oral tablet (1 source) Start: 01-24-2025 End: 01-31-2025 take 1 tablet by mouth three times daily Pyridium 100 mg Tab 100 mg = 1 tab(s), Oral, TID, X 7 day(s), # 21 tab(s), Refills(s) 0, Pharmacy: [facility]/pharmacy #[id number], 165, cm, 01/24/25 11:37:00 EDT, Height/Length [...] 1 Start: 06-08-2017 take 2 tablets by [facility] every eight hours as needed for muscle spasms Start: 06-08-2017 take 8 mg by mouth e very eight hours Tizanidine Active 8 MG PO Q8H June 08, 2017 12:00am Start: 06-08-2017 take 6 mg by mouth e very eight hours Tizanidine Active 6 MG PO Q8H June 08, 2017 12:00am take 1 capsule by [facility] every eight hours tiZANidine HCl 6 MG 1 capsule as needed Orally Three times a day 2200; can take another early afternoon Active divalproex sodium 250 mg delayed release oral tablet (20 sources) Mood Stabilizer, Anti-epileptic Agent Start: 05-09-2025 take 1 tablet by mouth twice daily, then take 3 tablets by mouth twice daily Start: 05-09-2025 take 1 tablet by [facility] twice daily Start: 10-27-2019 take 1 mg by mouth once daily divalproex sodium 250 mg ER Tab mg tab(s), Oral, Daily, Refills(s) 0 Start Date: 10/27/19 Status: Ordered Repeat number: 1 Start: 10-27-2019 take 1 mg by mouth once daily divalproex sodium 500 mg ER Tab mg tab(s), Oral, Daily, Refills(s) 0 Start Date: 10/27/19 Status: Ordered Repeat number: 1 Start: 09-21-2018 End: 05-09-2025 take 1 tablet by mouth once daily Divalproex (Depakote) 250 mg Tablet,Delayed Release (Dr/Ec) Discontinued 250 MG PO every day at noon September 21, 2018 1:00am May 09, 2025 9:50am Start: 03-13-2018 End: 05-09-2025 take 2 tablets by mouth twice daily Divalproex (Depakote) 250 mg Tablet,Delayed Release (Dr/Ec) Discontinued 500 MG PO Twice daily March 13, 2018 12:00am May 09, 2025 9:50am Start: 03-13-2018 take 2 tablets by [facility] once daily Divalproex (Depakote) 250 mg [...] Nausea/Vomiting, # 12 tab(s), Refills(s) 0, Pharmacy: [facility]/pharmacy #[id number], 165, cm, 01/24/25 11:37:00 EDT, Height/Length [...] TAB PO Q6H as needed for pain 09 05September 28, 2023 October 08, 2023 12:51am Start: 09-29-2018 End: 05-18-2022 take 1 tablet by mouth every six hours as needed for pain Hydrocodone-Acetaminophen ([place]) 5-325 mg tablet Discontinued 1 TAB PO Q6H as needed for pain 7 2 September 29, 2018 May 18, 2022 11:27am Start: 03-13-2018 End: 04-24-2018 take 1 tablet by mouth every four to six hours as needed for pain Hydrocodone-Acetaminophen ([place]) 5-325 mg tablet Discontinued 1 TAB PO [...] # 2 cap(s), Refills(s) 0, Pharmacy: [facility] [id number] Start Date: 07/31/22 Status: Ordered Quantity: 2.0 [...] / neomycin 3.5 mg/ml / polymyxin b 67453 unt/ml otic suspension (20 sources) Aminoglycoside Antibacterial, Polymyxin-class Antibacterial, Corticosteroid Start: 09-21-2018 End: 10-01-2018 Neomycin-Polymyxi n-Hc 3.5-10,000-1 mg/mL-unit/mL-% drops,suspension Discontinued 4 DROPS OTIC Q6H 18 07September 21, 2018 1:00am September 30, 2018 1:00am [...] Toradol Active methylPREDNISolone 4 mg oral tablet (19 sources) Corticosteroid Start: 03-08-2024 End: 07-24-2024 take [...] of liquid temazepam 15 mg oral capsule (7 sources) Benzodiazepine Start: 03-13-2025 End: 03-14-2025 take [...] 07-31-2022 Episodic Headache; including migraine (6 sources) Migraine without aura, not refractory ; Translations: [Chronic migraine without aura, not intractable, without status migrainosus] 05-09-2025 Chronic Headache; including migraine (6 sources) Headache 10-27-2019 [...] 06-08-2024 Chronic Other aftercare (1 source) Other exterminator (current) drug therapy; Translations: [OTH NURSING HOME 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 THERAPY] Onset: 02-02-2023 Episodic Other aftercare (1 source) keno terminal operator (current) use of oral hypoglycemic drugs; Translations: [NURSING HOME USE ORAL HYPOGLYCEMIC DX] Onset: 02-02-2023 Episodic Other connective tissue disease (20 sources) Fibromyalgia; Translations: [Fibromyalgia] 04-17-2019 Episodic Other connective tissue disease (20 sources) Muscle pain; Translations: [Myalgia, unspecified site] 04-17-2019 Episodic Other connective tissue disease (12 sources) Bursitis of hip; Translations: [Trochanteric bursitis, [...] Episodic Other nutritional; endocrine; and metabolic disorders (6 sources) Epidural lipomatosis; Translations: [Lipomatosis, not elsewhere classified] 05-09-2025 Chronic Other screening for suspected conditions (not mental disorders or infectious disease) (3 sources) Encounter for screening mammogram for malignant neoplasm of breast; Translations: [Encounter for screening for malignant neoplasm of colon] Onset: 07-24-2024 Episodic Other upper respiratory infections (20 sources) [...] Translations: [PT NONCOMPLIANCE DIET UNS REASON] Onset: 05-02-2023 Unclassified (3 sources) D72.829 - Elevated white [...] unspecified; Translations: [Pain, unspecified] Onset: 07-04-2024 Episodic Unclassified (1 source) Low back pain at multiple sites M54.50 Onset: 01-14-2022 Resolved: 01-14-2022 Results Test Name Value Interpretation Reference Range Facility Blood Mycobacterium tubercul osis stimulated gamma interferon detectionOrdered By: Leodan Patricia on 04-18-2025 M. tuberculosis tuberculin stim IFN-g Ql (Bld) Comment . [facility] Comment on above: QuantiFERON-TB Gold Plus is a qualitative indirect test forM tuberculosis infection (including disease) and isintended for use in conjunction with risk assessment,radiography, and other medical and diagnostic evaluations.The QuantiFERON-TB Gold Plus result is determined bysubtracting the Nil value from either TB antigen (Ag)value. The Mitogen tube serves as a control for the test. M. tuberculosis tuberculin stim IFN-g Ql (Bld) 0.26 [IU]/mL . [facility] M. tuberculosis tuberculin stim IFN-g Ql (Bld) 0.06 [IU]/mL . [facility] Blood mitogen stimulated natividad ma interferon measurement (units/volume)Ordered By: Leodan Patricia on 04-18-2025 Mitogen stimulated gamma interferon Qn (Bld) >10.00 [IU]/mL . [facility] CT abdomen pelvis w conon CT abdomen pelvis w con [facility] Main [place] [address] [place], [place] [id number] CT Scan Report Signed Patient: Rachel Mcgarry MR#: [id number] 1 : 1980 Acct:[id number] Age/Sex: 45 / F ADM Date: 04/18/25 Loc: Room: Type: [facility] RCR Attending Dr: Jane DEJESUS Copies to: OLEG Goddard MD Ordering Provider: Enrique Pratt MD Date of Service: 04/18/25 CT/CT abdomen pelvis w con: D72.829 - Elevated white blood cell count, unspecified ([id number]) CT/CT chest w con: D72.829 - Elevated [...] internal septations. Unremarkable right adnexa. Uterus absent.] Peritoneum/Retroperitoneum:N o free air or free fluid. Moderate plaque involving the nonaneurysmal aorta.[No adenopathy. Abd wall/Bones:No suspicious osseous lesion.[ CT/CT chest w con IMPRESSION: Negative for suspicious mass or metastatic adenopathy. Large left axillary lymph nodes with biopsy clip is noted, correlate with prior pathology. Impression dictated by: Kenneth Goel M.D. 04/18/2025 11:53 AM Dictation Location: [place] [address] Transcribed By: [facility] 04/18/25 1153 Dictated By: Kenneth Goel MD 04/18/25 1145 Signed By: 04/18/25 1153 Normal [facility] Creatinineon 04-18-2025 Creatinine Clr Calc Pharmacy 142.38 Normal [facility] Physician [facility] Comment on above: Order Comment: STAT FOR CT Result Comment: PERF ORMED BY: [place] [address] PATHOLOGIST BUCKLE STAPLER KVNG HENDERSON M.D. Performed By: #### C BC, CMP, LIPID #### [address] GFR/1.73 sq M.predicted MDRD (S/P/Bld) [Vol rate/Area] mL/min/{1.73_m2} Normal [facility] Comment on above: Order Comment: STAT FOR CT Performed By: #### C BC, CMP, LIPID #### [facility] [address] [place] [address] [place] Creatinine [Mass/volume] in Serum or PlasmaOrdered By: Jane Woo on 04-18-2025 Creatinine [Mass/Vol] 0.49 mg/dL Low 0.60-1.20 [facility] Comment on above: Order Comment: STAT FOR CT Performed By: #### C BC, CMP, LIPID #### [facility] [address] [place] [address] [place] Mycobacterium tuberculosis s timulated gamma interferon [Interpretation] in Blood QualOrdered By: Leodan aPtricia on 04-18-2025 M. tuberculosis stim IFN-g Ql (Bld) [Interp] Negative Negative [facility] Comment on above: No response to M tub erculosis antigens detected.Infection with M tuberculosis is unlikely, but high riskindividuals should be considered for additional testing(ATS/IDSA/CDC Clinical Practice Guidelines, 2017). Thereference range is an Antigen minus Nil result of <0.35IU/mL.The specimen received for QuantiFERON testing was incubatedby the ordering institution. Specific procedures outlinedin our Directory of Services and in the package insert forthe QuantiFERON Gold (In Tube) test must be followed toenable for proper stimulation of cells for the productionof interferon gamma. Chemiluminescence immunoassaymethodologyPerformed at: [facility] [employer] [id number] Director: Daniel Wen PhD, Phone: [phone] No Panel InformationOrdered By: Enrique Pratt on 04-18-2025 B Cell Gene Rearrange Director Revw Comment . [facility] Comment on above: Technical Component performed at [facility] RTPProfessional Component performed by:Abhi Ray, PhD, FACMGDirector, Molecular OncologyEncompass Rehabilitation [facility] [id number], [address] [facility] [phone] T-Cell Gene Method Comment . [facility] Comment on above: Patient cellular DNA is subjected to polymerase chainreaction using 2 optimized primer sets that target multipleV and J exon regions within the T cell receptor gamma chaingene on chromosome 7. Rearrangements are detected byidentification of specific clonal amplicon productsfollowing electrophoresis. This PCR assay is capable ofdetecting a clonal population at a sensitivity of 5 clonalcells per 100 normal cells. T-Cell Gene Rearrange References Comment . [facility] Comment on above: 1. Rosendo M, et al. Powerful strategy for polymerasechain reaction-based clonality assessment in T-cellmalignancies. Report of the BIOMED-2 Concerted ActionBHM4 [id number]. Leukemia 2007: 21:215-221.2. Stevan AW, et al. EuroClonality/BIOMED-2 guidelinesfor interpretation and reporting of Ig/TCR clonalitytesting in suspected lymphoproliferations. Hxvyaehy6061: 26:2999-7324.This test was developed and its performance characteristicsdetermined by [employer]. It has not been cleared or approvedby the Food and Drug Administration.Performed at: [facility] [employer] [id number] [place], [place], [place] [id number] Director: [facility], Phone: [phone] T-Cell Subset Interpretation Comment . [facility] Comment on above: NEGATIVE: No clonal T-cell receptor gamma (TCRG) populationwas detectedInterpretation of this result should be made in the contextof other clinical, morphologic, and immunophenotypicfindings. This PCR assay detects approximately 89% of T-cell clonal populations but as with all amplification basedassays, may not detect all possible T-cell receptor generearrangements. If significant suspicion of clonalityremains, T-cell receptor beta (TCRB, test code 855709) testis recommended. The combined T-cell clonality detectionrate of TCRG and TCRB is 94-99%. The T-cell receptor generearrangement panel (includung both TCRG and TCRB, testcode [id number]) is available for parallel testing. No Panel InformationOrdered By: Leodan Patricia on 04-18-2025 Syphilis Interpretation Comment . [facility] Comment on above: Syphilis: RPR with R eflex to RPR Titer and Treponemal Antibodies, Traditional Screening and Diagnosis Algorithm ------ TreponemalRPR RPR, Qn Ab Final Interpretation-------- --------- Non N/A N/A No laboratory evidenceReactive of syphilis. Retest in 2-4 weeks if recent exposure is suspected.-------- --------- Reactive >/=1:1 Non Nontreponemal antibodies Reactive detected. Syphilis unlikely; biological false positive possible. Retest in 2-4 weeks if recent exposure is suspected.-------- --------- Reactive >/=1:1 Reactive Treponemal and nontreponemal antibodies detected. Consistent with past or current (potential early) syphilis.Performed at: [employer] [id number] Director: Daniel Wne PhD, Phone: [phone] No Panel InformationOrdered By: Jane Woo on 04-18-2025 Estimated GFR (CKD-EPI) > 60.0 mL/Min [facility] Creatinine Clearance (Chem 142.38 [facility] QuantiFERON TB Goldon 2024 QFTB Criteria Comment Normal . [facility] Comment on above: Result Comment: [...] By: #### C MP, CBC, LIPASE #### [facility] [address] [place] [id number] [facility] Quant TB Ag Value 0.26 Normal . [facility] Comment on above: Performed By: #### C MP, CBC, LIPASE #### [facility] [address] [place] [address] [place] Quant TB Gold Plus Negative Normal Negative [facility] Comment on above: Result Comment: [...] interferon gamma. Chemiluminescence immunoassay methodology Performed at: [facility] [id number] [place]: Daniel Wen PhD, Phone: [phone] PERFORMED BY: [place] [address] PATHOLOGIST BUCKLE STAPL[employer] KVNG HENDERSON M.D. Performed By: #### C MP, CBC, LIPASE #### [address] Quant TB2 Ag Value 0.17 Normal . [facility] Comment on above: Performed By: #### C MP, CBC, LIPASE #### [address] Quantiferon Nil Value 0.06 Normal . [facility] Comment on above: Performed By: #### C MP, CBC, LIPASE #### [address] Quantiferon TB Mitogen >10.00 Normal . e [facility] Comment on above: Performed By: #### C MP, CBC, LIPASE #### [address] RPR w/rfx to Quant TP Abson 04-18-2025 RPR Interpretation Comment Normal . [facility] Comment on above: Result Comment: [...] or current (potential early) syphilis. Performed at: [address] [id number] [place]: Daniel Wen PhD, Phone: [phone] PERFORMED BY: [place] [address] PATHOLOGIST BUCKLE STAPLER KVNG HENDERSON M.D. Performed By: #### C MP, CBC, LIPASE #### [place] [address] [place] RPR, Rfx Quant RPR Non-Reactive Normal Non Reactive [facility] Comment on above: Performed By: #### C MP, CBC, LIPASE #### [address] Serum RPR testOrdered By: Viviana Patricia on 04-18-2025 Reagin Ab RPR Ql (S) Non-Reactive Non Reactive [facility] T-Cell Gene Rearrangement, P CRon 04-18-2025 Director Review: Comment Normal . [facility] Comment on above: Result Comment: Tech nical Component performed at [facility] RT Professional Component performed by: Abhi Ray, PhD, [facility] Director, Molecular Oncology [facility] RTP [id number], [address] [place] [address] Performed By: #### C MP, CBC, LIPASE #### [address] Methodology: Comment Normal . [facility] Comment on above: Result Comment: [...] By: #### C MP, CBC, LIPASE #### [address] References: Comment Normal . [facility] Comment on above: Result Comment: 1. B yao Ramirez, et al. Powerful strategy for polymerase chain reaction-based clonality assessment in T-cell malignancies. Report of the BIOMED-2 Concerted Action BHM4 [id number]. Leukemia 2007: 21:215-221. 2. Stevan VÁSQUEZ, et al. EuroClonality/BIOMED-2 guidelines for interpretation and reporting of Ig/TCR clonality testing in suspected lymphoproliferations. Leukemia 2012: 26:2156-0822. This test was developed and its performance characteristics determined by [employer]. It has not been cleared or approved by the Food and Drug Administration. Performed at: [facility] RTP [address] [facility], [place] [id number] [place]: [facility], Phone: [phone] PERFORMED BY: [place] [address] PATHOLOGIST BUCKLE STAPLER KVNG HENDERSON M.D. Performed By: #### C MP, CBC, LIPASE #### [address] T-Cell PCR Interpretation Comment Normal . [facility] Comment on above: Result Comment: [...] remains, T-cell receptor beta (TCRB, test code 595639) test is recommended. The combined T-cell clonality detection rate of TCRG and TCRB is 94-99%. The T-cell receptor gene rearrangement panel (includung both TCRG and TCRB, test code 920022) is available for parallel testing. Performed By: #### C MP, CBC, LIPASE #### [facility] [address] [place] [address] [place] Urea nitrogen [Mass/volume] in Serum or PlasmaOrdered By: Jane Woo on 04-18-2025 Urea nitrogen [Mass/Vol] 6 mg/dL Low 7-25 [facility] Comment on above: Order Comment: STAT FOR CT Performed By: #### C BC, CMP, LIPID #### [facility] [address] [place] [id number] [facility] Whole blood measurement of M ycobacterium tuberculosis stimulated gamma interferon relOrdered By: Leodan Patricia on 04-18-2025 M. tuberculosis stim IFN-g by CD4+ CD8+ T-cells corrected for background Qn (Bld) 0.17 [IU]/mL . [facility] BERTHA Antinuclear Antibodieson 03-14-2025 Antinuclear Abs, IFA Negative Normal . [facility] Comment on above: Result Comment: Nega tive <1:80 Borderline 1:80 Positive >1:80 ICAP nomenclature: AC-0 For more information about Hep-2 cell patterns use ANApatterns.org, the official website for the International Consensus on Antinuclear Antibody (BERTHA) Patterns (ICAP). Performed at: [facility] [address] [id number] [place]: Daniel Wen PhD, Phone: [phone] Performed By: #### C MP, CBC, LIPASE #### [facility] [address] [place] [id number] [place] Amylase [Enzymatic activity/ volume] in Serum or PlasmaOrdered By: Enrique Pratt on 03-14-2025 Amylase [Catalytic activity/Vol] 25 U/L Low 29-103 [facility] Comment on above: Performed By: #### J AK 2 NEOGENOMI, CRP, T4F, BCRABL NEOGENOM, LIPASE, TSH3, FLOW NEOGENOMIC, KARINA, RAKESH #### [facility] [address] [place] [address] [place] #### HCV RX PCR, HBSAB, HBSAG, BRETHA, BRITTANI, HBCAB, HAAB, HIV SCREEN, RA #### [facility] , Appearance of UrineOrdered B y: Enrique Pratt on 03-14-2025 Appearance (U) Cloudy Abnormal Clear [facility] Comment on above: Order Comment: Name Collection Type:: Clean-Voided Midstream Performed By: #### A DDONUAPLUS #### [place] [address] [place] BCR-ABL Neogenomicon 025 BCR-ABL Neogenomic Normal [facility] Comment on above: Result Comment: See report. Scanned copy available in EMR. PERFORMED BY: [place] [address] PATHOLOGIST BUCKLE STAPLER KVNG HENDERSON M.D. Performed By: #### C MP, CBC, LIPASE #### [facility] [address] [place] [address] [place] Bacteria [Presence] in Urine by AutomatedOrdered By: Enrique Pratt on 03-14-2025 Bacteria Auto Ql (U) 1+ [HPF] High None Seen [facility] Basophils [#/volume] in Bloo d by Automated countOrdered By: Jane [facility] on 03-14-2025 Basophils (Bld) [#/Vol] 0.1 10*3/uL 0.0-0.2 [facility] Comment on above: Result Comment: PERF ORMED BY: [place] [address] PATHOLOGIST BUCKLE STAPLER KVNG HENDERSON M.D. Performed By: #### C MP, CBC, LIPASE #### [facility] [address] [place] [id number] [place] Basophils/100 leukocytes in Blood by Automated countOrdered By: Jane [facility] on 03-14-2025 Basophils/100 WBC (Bld) 0.9 % . [facility] Comment on above: Performed By: #### C MP, CBC, LIPASE #### [address] Bilirubin Test strip Ql (U)O rdered By: Enrique Pratt on 03-14-2025 Bilirubin Ql (U) Negative Negative [facility] C reactive protein [Mass/vol ume] in Serum or PlasmaOrdered By: Enrique Pratt on 03-14-2025 CRP [Mass/Vol] 0.7 mg/dL High 0.0-0.5 [facility] C-Reactive Proteinon 025 C-Reactive Protein 0.7 mg/dL High 0.0-0.5 [facility] Comment on above: Performed By: #### C MP, CBC, LIPASE #### [address] Color of Urine by AutoOrdere d By: Enrique Pratt on 03-14-2025 Color (U) Light-yellow Yellow [facility] Comment on above: Order Comment: Name Collection Type:: Clean-Voided Midstream Performed By: #### A DDONUAPLUS #### [address] Complete Blood Count Auto Di ffon 03-14-2025 Mean Corpuscular HGB Conc 34.0 g/dL Normal 32.0-35.0 [facility] Comment on above: Performed By: #### C MP, CBC, LIPASE #### [address] NRBC% 0.1 /100{WBC} Normal 0-0.5 [facility] Comment on above: Performed By: #### C MP, CBC, LIPASE #### [address] Cortisolon 03-14-2025 Cortisol 6.7 ug/dL Normal [facility] Comment on above: Result Comment: Refe rence range: AM 6 - 24 ug/dl PM <10 ug/dl [facility] patient financial representative and method: RidejoyEL DXI, POLYCLONAL ANTIBODY CORTISOL ASSAY. PERFORMED BY: [place] [address] PATHOLOGIST BUCKLE STAPLER KVNG HENDERSON M.D. Performed By: #### C MP, CBC, LIPASE #### [address] Cortisol [Mass/volume] in Se rum or PlasmaOrdered By: Enrique Pratt on 03-14-2025 Cortisol [Mass/Vol] 6.7 ug/dL [facility] Comment on above: [facility] patient financial representative and method:JENNIFER UNICEL DXI, POLYCLONAL ANTIBODY CORTISOL ASSAY.Reference range: AM 6 - 24 ug/dl PM <10 ug/dl Dipstick and Microscopicon 0 03-14-2025 Bacteria,Urine 1+ High None Seen [facility] Comment on above: Order Comment: Name Collection Type:: Clean-Voided Midstream Performed By: #### A DDONUAPLUS #### [address] Bilirubin,Urine Negative Normal Negative [facility] Comment on above: Order Comment: Name Collection Type:: Clean-Voided Midstream Performed By: #### A DDONUAPLUS #### [address] Glucose Ql (U) Normal Normal Normal [facility] Comment on above: Order Comment: Name Collection Type:: Clean-Voided Midstream Performed By: #### A DDONUAPLUS #### [place] [address] [place] Hyaline Casts,Urine None Normal 0-8 [facility] Comment on above: Order Comment: Name Collection Type:: Clean-Voided Midstream Performed By: #### A DDONUAPLUS #### [place] [address] [place] Mucus,Urine Rare Normal [facility] Comment on above: Order Comment: Name Collection Type:: Clean-Voided Midstream Result Comment: PERF ORMED BY: [place] [address] PATHOLOGIST BUCKLE STAPLER KVNG HENDERSON M.D. Performed By: #### A DDONUAPLUS #### [place] [address] [place] Nitrite,Urine Negative Normal Negative [facility] Comment on above: Order Comment: Name Collection Type:: Clean-Voided Midstream Performed By: #### A DDONUAPLUS #### [address] Occult Blood,Urine Negative Normal Negative [facility] Comment on above: Order Comment: Name Collection Type:: Clean-Voided Midstream Result Comment: PERF ORMED BY: [place] [address] PATHOLOGIST BUCKLE STAPLER KVNG HENDERSON M.D. Performed By: #### A DDONUAPLUS #### [place] [address] [place] Protein,Urine Negative Normal Negative [facility] Comment on above: Order Comment: Name Collection Type:: Clean-Voided Midstream Performed By: #### A DDONUAPLUS #### [address] RBC,Urine 1-2 Normal 0-4 [facility] Comment on above: Order Comment: Name Collection Type:: Clean-Voided Midstream Performed By: #### A DDONUAPLUS #### [address] Specificy [place],Urine 1.011 Normal 1.001-1.03 0 [facility] Comment on above: Order Comment: Name Collection Type:: Clean-Voided Midstream Performed By: #### A DDONUAPLUS #### [place] [address] [place] Squamous Epithelial Cell,Urine 10-19 High 0-2 [facility] Comment on above: Order Comment: Name Collection Type:: Clean-Voided Midstream Performed By: #### A DDONUAPLUS #### [address] Urobilinogen,Urine Normal Normal Normal [facility] Comment on above: Order Comment: Name Collection Type:: Clean-Voided Midstream Performed By: #### A DDONUAPLUS #### [facility] [address] WBC,Urine 1-2 Normal 0-4 [facility] Comment on above: Order Comment: Name Collection Type:: Clean-Voided Midstream Performed By: #### A DDONUAPLUS #### [facility] [address] [place] [address] [place] Eosinophils [#/volume] in Bl ood by Automated countOrdered By: Jane [facility] on 03-14-2025 Eosinophils (Bld) [#/Vol] 0.1 10*3/uL 0.0-0.45 [facility] Comment on above: Performed By: #### C MP, CBC, LIPASE #### [place] [address] [place] Eosinophils/100 leukocytes i n Blood by Automated countOrdered By: Jane [facility] on 03-14-2025 Eosinophils/100 WBC (Bld) 0.4 % . [facility] Comment on above: Performed By: #### C MP, CBC, LIPASE #### [address] Epithelial cells.squamous [# /area] in Urine sediment by Automated countOrdered By: Enrique Pratt on 03-14-2025 Epithelial cells.squamous Auto (Urine sed) [#/Area] 10-19 [HPF] High 0-2 [facility] Erythrocyte distribution wid th [Ratio] by Automated countOrdered By: Jane [facility] on 03-14-2025 Erythrocyte distribution width (RBC) [Ratio] 13.7 % 11.9-15.3 [facility] Comment on above: Performed By: #### C MP, CBC, LIPASE #### [place] [address] [place] Erythrocytes [#/area] in Uri ne sediment by Automated countOrdered By: Enrique Trivedi on 03-14-2025 RBC Auto (Urine sed) [#/Area] 1-2 [HPF] 0-4 [facility] Erythrocytes [#/volume] in B lood by Automated countOrdered By: Jane [facility] on 03-14-2025 RBC (Bld) [#/Vol] 5.02 10*6/uL High 3.60-5.00 [facility] Comment on above: Performed By: #### C MP, CBC, LIPASE #### [address] Flowcytometry Neogenomicon 0 03-14-2025 Flowcytometry Neogenomic . Normal [facility] Comment on above: Result Comment: See report. Scanned copy available in EMR. Performed By: #### C MP, CBC, LIPASE #### [address] Glucose [Mass/volume] in Uri ne by Test stripOrdered By: Enrique Pratt on 03-14-2025 Glucose Test strip (U) [Mass/Vol] Normal mg/dL Normal [facility] HIV 1/O/2 Antigen/Antibodyon 03-14-2025 HIV Screen 4th Generation Non-Reactive Normal Non Reactive [facility] Comment on above: Result Comment: HIV- 1/HIV-2 antibodies and HIV-1 p24 antigen were NOT detected. There is no laboratory evidence of HIV infection. HIV Negative Performed at: [facility] [place] [id number] [place]: Daniel Wen PhD, Phone: [phone] PERFORMED BY: [place] [address] PATHOLOGIST BUCKLE STAPLER KVNG HENDERSON M.D. Performed By: #### C MP, CBC, LIPASE #### [address] Hematocrit [Volume Fraction] of Blood by Automated countOrdered By: Jane [facility] on 03-14-2025 Hematocrit (Bld) [Volume fraction] 44.0 % 34.0-46.4 [facility] Comment on above: Performed By: #### C MP, CBC, LIPASE #### [address] Hemoglobin Test strip Ql (U) Ordered By: Enrique Pratt on 03-14-2025 Hemoglobin Ql (U) Negative Negative [facility] Hemoglobin [Mass/volume] in BloodOrdered By: Jane [facility] on 03-14-2025 Hemoglobin (Bld) [Mass/Vol] 15.0 g/dL 11.8-15.4 [facility] Comment on above: Performed By: #### C MP, CBC, LIPASE #### [address] Hep C Ab wRfx to Qnt PCRon 0 03-14-2025 Hepatitis C Virus Antibody Non-Reactive Normal Non Reactive [facility] Comment on above: Performed By: #### C MP, CBC, LIPASE #### [address] Interpretation Hepatitis C Comment Normal . [facility] Comment on above: Result Comment: Not infected with HCV unless early or acute infection is suspected (which may be delayed in an immunocompromised individual), or other evidence exists to indicate HCV infection. Performed By: #### C MP, CBC, LIPASE #### [address] Hepatitis A Antibody IgMon 0 03-14-2025 Hepatitis A Antibody IgM Negative Normal Negative [facility] Comment on above: Result Comment: A ne gative anti-HAV IgM result suggests no recent or current HAV infection. Performed at: - [facility] [id number] [place]: Daniel Wen PhD, Phone: [phone] Performed By: #### C MP, CBC, LIPASE #### [address] Hepatitis B Core Antibodyon 03-14-2025 Hepatitis B Core Antibody Negative Normal Negative [facility] Comment on above: Performed By: #### C MP, CBC, LIPASE #### [address] Hepatitis B Surface Antibody on 03-14-2025 Hepatitis B Surface Antibody Non-Reactive Normal . [facility] Comment on above: Result Comment: Non Reactive: Not immune to HBV infection. Equivocal: Unable to determine if anti-HBs is present at levels consistent with immunity. Reactive: Anti-HBs concentration detected at greater than 10 mIU/mL. Individual is considered to be immune to infection with HBV. Performed By: #### C MP, CBC, LIPASE #### [address] Hepatitis B Surface Antigeno n 03-14-2025 HBsAg Screen Negative Normal Negative [facility] Comment on above: Result Comment: PERF ORMED BY: [place] [address] PATHOLOGIST BUCKLE STAPLER KVNG HENDERSON M.D. Performed By: #### C MP, CBC, LIPASE #### [address] Hepatitis C virus IgG Ab [Pr esence] in Serum or Plasma by ImmunoassayOrdered By: Enrique Pratt on 03-14-2025 HCV IgG IA Ql Non-Reactive Non Reactive [facility] Hyaline casts [#/area] in Ur ine sediment by Automated countOrdered By: Enrique Trivedi on 03-14-2025 Hyaline casts Auto (Urine sed) [#/Area] None [LPF] 0-8 [facility] WILLIAM 2 Neogenomicon WILLIAM 2 Neogenomic Normal [facility] Comment on above: Result Comment: See report. Scanned copy available in EMR. Performed By: #### C MP, CBC, LIPASE #### [address] Ketones [Presence] in Urine by Test stripOrdered By: Enrique Pratt on 03-14-2025 Ketones Ql (U) Negative Negative [facility] Comment on above: Order Comment: Name Collection Type:: Clean-Voided Midstream Performed By: #### A DDONUAPLUS #### [address] Leukocyte esterase [Presence ] in Urine by Test stripOrdered By: Enrique Pratt on 03-14-2025 Leukocyte esterase Test strip Ql (U) Negative Negative [facility] Comment on above: Order Comment: Name Collection Type:: Clean-Voided Midstream Performed By: #### A DDONUAPLUS #### [address] Leukocytes [#/area] in Urine sediment by Automated countOrdered By: Enrique Trivedi on 03-14-2025 WBC Auto (Urine sed) [#/Area] 1-2 [HPF] 0-4 [facility] Leukocytes [#/volume] correc cherie for nucleated erythrocytes in Blood by Automated counOrdered By: [facility] on 03-14-2025 WBC corrected for nucl RBC Auto (Bld) [#/Vol] 15.3 10*3/uL High 3.8-11.6 [facility] Leukocytes [#/volume] in Blo od by Automated countOrdered By: [facility] on 03-14-2025 WBC (Bld) [#/Vol] 15.3 10*3/uL High 3.8-11.6 [facility] Comment on above: Performed By: #### C MP, CBC, LIPASE #### [address] Lipase [Enzymatic activity/v olume] in Serum or PlasmaOrdered By: Enrique Pratt on 03-14-2025 Lipase [Catalytic activity/Vol] 43.0 U/L 11.0-82.0 [facility] Comment on above: Performed By: #### J AK 2 NEOGENOMI, CRP, T4F, BCRABL NEOGENOM, LIPASE, TSH3, FLOW NEOGENOMIC, KARINA, RAKESH #### [facility] [address] [place] [address] #### HCV RX PCR, HBSAB, HBSAG, BERTHA, BRITTANI, HBCAB, HAAB, HIV SCREEN, RA #### [facility] , Lymphocytes [#/volume] in Bl ood by Automated countOrdered By: [facility] on 03-14-2025 Lymphocytes (Bld) [#/Vol] 4.3 10*3/uL 1.00-4.8 [facility] Comment on above: Performed By: #### C MP, CBC, LIPASE #### [address] Lymphocytes/100 leukocytes i n Blood by Automated countOrdered By: Jane [facility] on 03-14-2025 Lymphocytes/100 WBC (Bld) 28.0 % . [facility] Comment on above: Performed By: #### C MP, CBC, LIPASE #### [address] MCH [Entitic mass] by Automa cherie countOrdered By: [facility] on 03-14-2025 MCH (RBC) [Entitic mass] 29.8 pg 24.7-34.3 [facility] Comment on above: Performed By: #### C MP, CBC, LIPASE #### [address] MCHC Auto (RBC) [Mass/Vol]Or dered By: [facility] on 03-14-2025 MCHC (RBC) [Mass/Vol] 34.0 g/dL 32.0-35.0 [facility] MCV [Entitic volume] by Auto mated countOrdered By: [facility] on 03-14-2025 MCV (RBC) [Entitic vol] 87.7 fL 80-100 [facility] Comment on above: Performed By: #### C MP, CBC, LIPASE #### [address] Monocytes [#/volume] in Bloo d by Automated countOrdered By: [facility] on 03-14-2025 Monocytes (Bld) [#/Vol] 1.2 10*3/uL High 0.0-0.8 [facility] Comment on above: Performed By: #### C MP, CBC, LIPASE #### [place] [address] [place] Monocytes/100 leukocytes in Blood by Automated countOrdered By: [facility] on 03-14-2025 Monocytes/100 WBC (Bld) 8.1 % . [facility] Comment on above: Performed By: #### C MP, CBC, LIPASE #### [facility] [address] [place] [address] [place] Mucus [Presence] in Urine by AutomatedOrdered By: Enrique Pratt on 03-14-2025 Mucus Auto Ql (U) Rare [LPF] [facility] Neutrophils [#/volume] in Bl ood by Automated countOrdered By: Jane [facility] on 03-14-2025 Neutrophils (Bld) [#/Vol] 9.6 10*3/uL High 1.8-7.7 [facility] Comment on above: Performed By: #### C MP, CBC, LIPASE #### [facility] [address] [place] [address] [place] Neutrophils/100 leukocytes i n Blood by Automated countOrdered By: Jane [facility] on 03-14-2025 Neutrophils/100 WBC (Bld) 62.6 % . [facility] Comment on above: Performed By: #### C MP, CBC, LIPASE #### [facility] [address] Nitrite Test strip Ql (U)Ord ered By: Enrique Pratt on 03-14-2025 Nitrite Ql (U) Negative Negative [facility] No Panel InformationOrdered By: Enrique Pratt on 03-14-2025 BCR/abl See comment [facility] Comment on above: See report. Scanned copy available in EMR. Hepatitis C Interpretation Comment . [facility] Comment on above: Not infected with HC V unless early or acute infection issuspected (which may be delayed in an immunocompromisedindividual), or other evidence exists to indicate HCVinfection. [id number] See comment [facility] Comment on above: See report. Scanned copy available in EMR. Nucleated erythrocytes [Pres ence] in Blood by Automated countOrdered By: Jane [facility] on 03-14-2025 Nucleated RBC Auto Ql (Bld) 0.1 /100{WBC} 0-0.5 [facility] Platelet mean volume [Entiti c volume] in Blood by Automated countOrdered By: Jane [facility] on 03-14-2025 Platelet mean volume (Bld) [Entitic vol] 7.9 fL 6.3-10.7 [facility] Comment on above: Performed By: #### C MP, CBC, LIPASE #### [address] Platelets [#/volume] in Bloo d by Automated countOrdered By: Jane [facility] on 03-14-2025 Platelets (Bld) [#/Vol] 253 10*3/uL 150-450 [facility] Comment on above: Performed By: #### C MP, CBC, LIPASE #### [address] Protein Test strip (U) [Mass /Vol]Ordered By: Enrique Pratt on 03-14-2025 Protein (U) [Mass/Vol] Negative Negative [facility] Rheumatoid Factoron 03-14-20 25 Rheumatoid Factor 11.0 [IU]/mL Normal <14.0 [facility] Comment on above: Result Comment: Perf ormed at: [facility] [place] [address] [place]: Daniel Wen PhD, Phone: [phone] Performed By: #### C MP, CBC, LIPASE #### [address] Serum angiotensin converting enzyme (BRITTANI) measurementOrdered By: Enrique Pratt on 03-14-2025 Angiotensin converting enzyme [Catalytic activity/Vol] 45 U/L 14-82 [facility] Comment on above: Performed at: [facility] [address] [place] [address]Lab Director: Daniel Wen PhD, Phone: [phone] Result Comment: Perf ormed at: [facility] [place] [address] [place]: Daniel Wen PhD, Phone: [phone] Performed By: #### C MP, CBC, LIPASE #### [address] Serum hepatitis B virus surf brittani antibody detectionOrdered By: Enrique Pratt on 03-14-2025 HBV surface Ab Ql (S) Non-Reactive . [facility] Comment on above: Non Reactive: Not im mune to HBV infection. Equivocal: Unable to determine if anti-HBs is present at levels consistent with immunity. Reactive: Anti-HBs concentration detected at greater than 10 mIU/mL. Individual is considered to be immune to infection with HBV. Serum homogeneous pattern an tinuclear antibody (BERTHA) titerOrdered By: Enrique Trivedi on 03-14-2025 Homogenous nuclear Ab pattern (S) [Titer] N/A [facility] Serum nuclear antibody titer Ordered By: Enrique Pratt on 03-14-2025 Nuclear Ab (S) [Titer] Negative . [facility] Comment on above: Negative <1:80 Borde rline 1:80 Positive >1:80ICAP nomenclature: AC-0For more information about Hep-2 cell patterns useANApatterns.org, the official website for theInternational Consensus on Antinuclear Antibody (BERHTA)Patterns (ICAP).Performed at: [facility] [address] [id number] Director: Daniel Wen PhD, Phone: [phone] Serum or plasma hepatitis B virus surface antigen detection by immunoassayOrdered By: Enrique Pratt on 03-14-2025 HBV surface Ag IA Ql Negative Negative [facility] Serum or plasma rheumatoid f actor measurement (units/volume)Ordered By: Enrique Pratt on 03-14-2025 Rheumatoid factor Qn 11.0 [IU]/mL <14.0 [facility] Comment on above: Performed at: [facility] [address] [id number] Director: Daniel Wen PhD, Phone: [phone] Specific gravity Test strip (U) [Rel density]Ordered By: Enrique Pratt on 03-14-2025 Specific gravity (U) [Rel density] 1.011 1.001-1.03 0 [facility] Thyrotropin [Units/volume] i n Serum or PlasmaOrdered By: Enrique Pratt on 03-14-2025 TSH Qn 1.88 m[IU]/L 0.45-5.33 [facility] Comment on above: Performed By: #### C MP, CBC, LIPASE #### [facility] [address] Thyroxine (T4) free [Mass/vo lume] in Serum or PlasmaOrdered By: Enrique Pratt on 03-14-2025 Free T4 [Mass/Vol] 0.69 ng/dL 0.61-1.12 [facility] Comment on above: Performed By: #### C MP, CBC, LIPASE #### [facility] [address] Urobilinogen Test strip (U) [Mass/Vol]Ordered By: Enrique Pratt on 03-14-2025 Urobilinogen (U) [Mass/Vol] Normal mg/dL Normal [facility] pH of Urine by Test stripOrd ered By: Enrique Pratt on 03-14-2025 pH (U) 5.5 [pH] 5.0-9.0 [facility] Comment on above: Order Comment: Name Collection Type:: Clean-Voided Midstream Performed By: #### A DDONUAPLUS #### [facility] [address] [place] [address] US renal BIon 03-06-[address] [facility] [place] [address] Ultrasound Report Signed Patient: Rachel Mcgarry MR#: [id number] 1 : 1980 Acct:[id number] Age/Sex: 45 / F ADM Date: 03/06/25 Loc: Room: Type: [facility] Attending Dr: Ajit DEJESUS Ordering Provider: OLEG Sharp Date of Service: 03/06/25 US/US renal BI: Recurrent UTI;Sensation of pressure in bladder area;Scylab medic Copies to: OLEG Sharp BILATERAL RENAL AND [...] Yañez M.D. 03/06/2025 12:58 PM Dictation Location: [facility] Tech: Janet Krause Transcribed By: ROSA MARIA 03/06/25 1258 Dictated By: Eda Yañez MD 03/06/25 1258 Signed By: 03/06/25 1258 Normal [facility] US venous duplex LE BIon US venous duplex LE BI [facility] [address] Ultrasound Report Signed Patient: Rachel Mcgarry MR#: [id number] 1 : 1980 Acct:[id number] Age/Sex: 45 / F ADM Date: 03/06/25 Loc: Room: Type: [facility] Attending Dr: Ajit DEJESUS Ordering Provider: [...] Goss MD,FACS,FSVS 03/06/2025 1:25 PM Dictation Location: [facility]04 Tech: Janet Krause Transcribed By: ROSA MARIA 03/06/25 1325 Dictated By: Marcio Goss MD 03/06/25 1325 Signed By: 03/06/25 1325 Normal [facility] Urine Cultureon 02-26-2025 Bacteria identified Cx Nom (U) 20,000 colonies/ml mixed bacterial skin contaminants 2 Days PERFORMED BY: [place] [id number] PATHOLOGIST BUCKLE STAPLER KVNG HENDERSON M.D. Normal [facility] Comment on above: Performed By: #### C BC, CMP, LIPID #### [facility] [address] [place] [address] [facility] Urine cultureOrdered By: Tristian Cedeño on 02-26-2025 Bacteria identified Cx Nom (U) Urine culture [facility] Bacteria identified Cx Nom (U) 2 Days [facility] A1C with Estimated Average G luon 02-20-2025 Glucose [Mass/Vol] 137 mg/dL Normal [facility] Comment on above: Order Comment: Reaso n for Exam Type 2 diabetes mellitus without complication, without long- Result Comment: PERF ORMED BY: [facility] [address] [place] [address] PATHOLOGIST BUCKLE STAPLER MAURO ELLSWORTH M.D. Performed By: #### C BC, CMP, LIPID #### [facility] [address] [place] [address] [place] Alanine aminotransferase [En zymatic activity/volume] in Serum or PlasmaOrdered By: Ajit Pettit on 02-20-2025 ALT [Catalytic activity/Vol] Alanine aminotransferase [Enzymatic activity/volume] in Serum or Plasma [facility] ALT [Catalytic activity/Vol] 11 U/L [facility] Comment on above: Order Comment: Reaso n for Exam Type 2 diabetes mellitus without complication, without long- Reason for Exam Hypercholesterolemia Reason for Exam Vitamin D deficiency Performed By: #### C BC, CMP, LIPID #### [facility] [address] [place] [address] [place] Albumin [Mass/volume] in Ser um or Plasma by Bromocresol green (BCG) dye binding methoOrdered By: Ajit Pettit on 02-20-2025 Albumin BCG dye [Mass/Vol] Albumin [Mass/volume] in Serum or Plasma by Bromocresol green (BCG) dye binding metho 3.5-5.7 [facility] Albumin BCG dye [Mass/Vol] 4.6 g/dL 3.5-5.7 [facility] Alkaline phosphatase [Enzyma tic activity/volume] in Serum or PlasmaOrdered By: Ajit Pettit on 02-20-2025 ALP [Catalytic activity/Vol] Alkaline phosphatase [Enzymatic activity/volume] in Serum or Plasma 34 [facility] ALP [Catalytic activity/Vol] 55 U/L [facility] Comment on above: Order Comment: Reaso n for Exam Type 2 diabetes mellitus without complication, without long- Reason for Exam Hypercholesterolemia Reason for Exam Vitamin D deficiency Performed By: #### C BC, CMP, LIPID #### [facility] [address] Aspartate aminotransferase [ Enzymatic activity/volume] in Serum or PlasmaOrdered By: Ajit Pettit on 02-20-2025 AST [Catalytic activity/Vol] Aspartate aminotransferase [Enzymatic activity/volume] in Serum or Plasma [facility] AST [Catalytic activity/Vol] 14 U/L [facility] Comment on above: Order Comment: Reaso n for Exam Type 2 diabetes mellitus without complication, without long- Reason for Exam Hypercholesterolemia Reason for Exam Vitamin D deficiency Performed By: #### C BC, CMP, LIPID #### [facility] [address] [place] [address] [place] Basophils Auto (Bld) [#/Vol] Ordered By: Ajit Pettit on 02-20-2025 Basophils (Bld) [#/Vol] Automated basophil count 0.0-0.2 [facility] Basophils [#/volume] in Bloo d by Automated countOrdered By: Ajit Pettit on 02-20-2025 Basophils (Bld) [#/Vol] 0.1 10*3/uL 0.0-0.2 [facility] Comment on above: Order Comment: Reaso n for Exam Type 2 diabetes mellitus without complication, without long- Result Comment: PERF ORMED BY: [address] [place] [address] PATHOLOGIST BUCKLE STAPLER MAURO ELLSWORTH M.D. Performed By: #### C BC, CMP, LIPID #### [facility] [address] Basophils/100 WBC Auto (Bld) Ordered By: Ajit Pettit on 02-20-2025 Basophils/100 WBC (Bld) Automated basophil % . [facility] Basophils/100 leukocytes in Blood by Automated countOrdered By: Ajit Pettit on 02-20-2025 Basophils/100 WBC (Bld) 0.8 % . [facility] Comment on above: Order Comment: Reaso n for Exam Type 2 diabetes mellitus without complication, without long- Performed By: #### C BC, CMP, LIPID #### [facility] [address] [place] [address] Bilirubin.total [Mass/volume ] in Serum or PlasmaOrdered By: Ajit Pettit on 02-20-2025 Bilirubin [Mass/Vol] Bilirubin.total [Mass/volume] in Serum or Plasma 0.3-1.0 [facility] Bilirubin [Mass/Vol] 0.4 mg/dL 0.3-1.0 [facility] Comment on above: Order Comment: Reaso n for Exam Type 2 diabetes mellitus without complication, without long- Reason for Exam Hypercholesterolemia Reason for Exam Vitamin D deficiency Performed By: #### C BC, CMP, LIPID #### [facility] [address] [place] [address] Blood estimated average gluc ose determination by estimation from glycated hemoglobinOrdered By: Ajit Pettit on 02-20-2025 Average glucose Estimated from glycated hemoglobin (Bld) [Mass/Vol] Glucose mean value [Mass/volume] in Blood Estimated from glycated hemoglobin [facility] Average glucose Estimated from glycated hemoglobin (Bld) [Mass/Vol] 137 mg/dL [facility] Calcium [Mass/volume] in Ser um or PlasmaOrdered By: Ajit Pettit on 02-20-2025 Calcium [Mass/Vol] Calcium [Mass/volume ] in Serum or Plasma 8.6-10.3 [facility] Calcium [Mass/Vol] 9.7 mg/dL 8.6-10.3 [facility] Comment on above: Order Comment: Reaso n for Exam Type 2 diabetes mellitus without complication, without long- Reason for Exam Hypercholesterolemia Reason for Exam Vitamin D deficiency Performed By: #### C BC, CMP, LIPID #### [facility] [address] [place] [id number] [place] Carbon dioxide, total [Moles /volume] in Serum or PlasmaOrdered By: Ajit Pettit on 02-20-2025 CO2 [Moles/Vol] Carbon dioxide, tota l [Moles/volume] in Serum or Plasma 21.0-31.0 [facility] CO2 [Moles/Vol] 27.8 mmol/L 21.0-31.0 [facility] Comment on above: Order Comment: Reaso n for Exam Type 2 diabetes mellitus without complication, without long- Reason for Exam Hypercholesterolemia Reason for Exam Vitamin D deficiency Performed By: #### C BC, CMP, LIPID #### [facility] [address] [place] [id number] [place] Chloride [Moles/volume] in S alissa or PlasmaOrdered By: Ajit Pettit on 02-20-2025 Chloride [Moles/Vol] Chloride [Moles/vol ume] in Serum or Plasma Low 98-107 [facility] Chloride [Moles/Vol] 96 mmol/L Low 98-107 [facility] Comment on above: Order Comment: Reaso n for Exam Type 2 diabetes mellitus without complication, without long- Reason for Exam Hypercholesterolemia Reason for Exam Vitamin D deficiency Performed By: #### C BC, CMP, LIPID #### [facility] [address] [place] [id number] [place] Cholesterol [Mass/volume] in Serum or PlasmaOrdered By: Ajit Pettit on 02-20-2025 Cholesterol [Mass/Vol] Cholesterol [Mass /volume] in Serum or Plasma High 140-200 [facility] Comment on above: Chol less than 200 m g/dl low riskChol 201-239 mg/dl borderline riskChol 240 mg/dl and greater high risk Cholesterol [Mass/Vol] 212 mg/dL High 140-200 [facility] Comment on above: Chol [...] By: #### C BC, CMP, LIPID #### [facility] [address] [place] [id number] [facility] Cholesterol in HDL [Mass/vol ume] in Serum or PlasmaOrdered By: Ajit Pettit on 02-20-2025 Cholesterol in HDL [Mass/Vol] Serum or plasma high density lipoprotein (HDL) cholesterol measurement [facility] Comment on above: HDL CHOL ATP-III CLA SSIFICATION Cardiovascular RiskHDL > or equal to 60 mg/dL LOWHDL < 40 mg/dL HIGH Cholesterol in HDL [Mass/Vol] 47 mg/dL [facility] Comment on above: HDL CHOL ATP-III [...] By: #### C BC, CMP, LIPID #### [facility] [address] [place] [id number] [place] Cholesterol in LDL Calc [Mas s/Vol]Ordered By: Ajit Pettit on 02-20-2025 Cholesterol in LDL [Mass/Vol] Cholesterol in LDL [Mass/volume] in Serum or Plasma by calculation High 0-100 [facility] Comment on above: LDL ATP III CLASSIFI CATIONLDL less than 100 mg/dL OptimalLDL 100-129 mg/dL Near or above optimalLDL 130-159 mg/dL Borderline highLDL 160-189 mg/dL HighLDL greater than 189 mg/dL Very high Cholesterol in LDL [Mass/Vol] 102 mg/dL High 0-100 [facility] Comment on above: LDL ATP III CLASSIFI CATIONLDL less than 100 mg/dL OptimalLDL 100-129 mg/dL Near or above optimalLDL 130-159 mg/dL Borderline highLDL 160-189 mg/dL HighLDL greater than 189 mg/dL Very high Cholesterol in VLDL Calc [Ma ss/Vol]Ordered By: Ajit Pettit on 02-20-2025 Cholesterol in VLDL [Mass/Vol] Cholesterol in VLDL [Mass/volume] in Serum or Plasma by calculation [facility] Cholesterol in VLDL [Mass/Vol] 62 mg/dL [facility] Complete Blood Count Auto Di ffon 02-20-2025 Mean Corpuscular HGB Conc 34.1 g/dL Normal 32.0-35.0 [facility] Comment on above: Order Comment: Reaso n for Exam Type 2 diabetes mellitus without complication, without long- Performed By: #### C BC, CMP, LIPID #### [facility] [address] NRBC% 0.0 /100{WBC} Normal 0-0.5 [facility] Comment on above: Order Comment: Reaso n for Exam Type 2 diabetes mellitus without complication, without long- Performed By: #### C BC, CMP, LIPID #### [facility] [address] Comprehensive Metabolic Pane rosa 02-20-2025 Albumin [Mass/Vol] 4.6 g/dL Normal 3.5-5.7 [facility] Comment on above: Order Comment: Reaso n for Exam Type 2 diabetes mellitus without complication, without long- Reason for Exam Hypercholesterolemia Reason for Exam Vitamin D deficiency Performed By: #### C BC, CMP, LIPID #### [facility] [address] GFR/1.73 sq M.predicted MDRD (S/P/Bld) [Vol rate/Area] mL/min/{1.73_m2} Normal [facility] Comment on above: Order Comment: Reaso n for Exam Type 2 diabetes mellitus without complication, without long- Reason for Exam Hypercholesterolemia Reason for Exam Vitamin D deficiency Performed By: #### C BC, CMP, LIPID #### [facility] [address] [place] [address] Creatinine [Mass/volume] in Serum or PlasmaOrdered By: Ajit Pettit on 02-20-2025 Creatinine [Mass/Vol] Creatinine [Mass/v olume] in Serum or Plasma 0.60-1.20 [facility] Creatinine [Mass/Vol] 0.74 mg/dL 0.60-1.20 [facility] Comment on above: Order Comment: Reaso n for Exam Type 2 diabetes mellitus without complication, without long- Reason for Exam Hypercholesterolemia Reason for Exam Vitamin D deficiency Performed By: #### C BC, CMP, LIPID #### [facility] [address] [place] [address] Eosinophils Auto (Bld) [#/Vo l]Ordered By: Ajit Pettit on 02-20-2025 Eosinophils (Bld) [#/Vol] Automated eosinophil count 0.0-0.45 [facility] Eosinophils [#/volume] in Bl ood by Automated countOrdered By: Ajit Pettit on 02-20-2025 Eosinophils (Bld) [#/Vol] 0.1 10*3/uL 0.0-0.45 [facility] Comment on above: Order Comment: Reaso n for Exam Type 2 diabetes mellitus without complication, without long- Performed By: #### C BC, CMP, LIPID #### [facility] [address] [place] [address] [place] Eosinophils/100 WBC Auto (Bl d)Ordered By: Ajit Pettit on 02-20-2025 Eosinophils/100 WBC (Bld) Automated eosinophil % . [facility] Eosinophils/100 leukocytes i n Blood by Automated countOrdered By: Ajit Pettit on 02-20-2025 Eosinophils/100 WBC (Bld) 0.3 % . [facility] Comment on above: Order Comment: Reaso n for Exam Type 2 diabetes mellitus without complication, without long- Performed By: #### C BC, CMP, LIPID #### [facility] [address] [place] [address] [place] Erythrocyte distribution wid th Auto (RBC) [Ratio]Ordered By: Ajit Pettit on 02-20-2025 Erythrocyte distribution width (RBC) [Ratio] Erythrocyte distribution width [Ratio] by Automated count 11.9-15.3 [facility] Erythrocyte distribution wid th [Ratio] by Automated countOrdered By: Ajit Pettit on 02-20-2025 Erythrocyte distribution width (RBC) [Ratio] 13.0 % 11.9-15.3 [facility] Comment on above: Order Comment: Reaso n for Exam Type 2 diabetes mellitus without complication, without long- Performed By: #### C BC, CMP, LIPID #### [facility] [address] Erythrocytes [#/volume] in B lood by Automated countOrdered By: Ajit Pettit on 02-20-2025 RBC (Bld) [#/Vol] 4.62 10*6/uL 3.60-5.00 [facility] Comment on above: Order Comment: Reaso n for Exam Type 2 diabetes mellitus without complication, without long- Performed By: #### C BC, CMP, LIPID #### [facility] [address] Globulin Calc (S) [Mass/Vol] Ordered By: Ajit Pettit on 02-20-2025 Globulin (S) [Mass/Vol] Serum globulin measurement by calculation (mass/volume) [facility] Glucose [Mass/volume] in Ser um or PlasmaOrdered By: Ajit Pettit on 02-20-2025 Glucose [Mass/Vol] Glucose [Mass/volume ] in Serum or Plasma 70-100 [facility] Comment on above: ADA recommended refe rence rangeRandom Glucose Reference Range is dependent on time and content of last meal. Glucose of more than 200 mg/dL in a nonstressed, ambulatory subject supports the diagnosis of Diabetes Mellitus. Glucose [Mass/Vol] 79 mg/dL 70-100 [facility] Comment on above: ADA recommended refe rence rangeRandom Glucose Reference Range is dependent on time and content of last meal. Glucose of more than 200 mg/dL in a nonstressed, ambulatory subject supports the diagnosis of Diabetes Mellitus. Order Comment: Reaso n for Exam Type 2 diabetes mellitus without complication, without long- Reason for Exam Hypercholesterolemia Reason for Exam Vitamin D deficiency Result Comment: [place] Glucose Reference Range is dependent on time and content of last meal. Glucose of more than 200 mg/dL in a nonstressed, ambulatory subject supports the diagnosis of Diabetes Mellitus. ADA recommended reference range Performed By: #### C BC, CMP, LIPID #### [facility] [address] Hematocrit Auto (Bld) [Volum e fraction]Ordered By: Ajit Pettit on 02-20-2025 Hematocrit (Bld) [Volume fraction] Hematocrit [Volume Fraction] of Blood by Automated count 34.0-46.4 [facility] Hematocrit [Volume Fraction] of Blood by Automated countOrdered By: Ajit Pettit on 02-20-2025 Hematocrit (Bld) [Volume fraction] 40.7 % 34.0-46.4 [facility] Comment on above: Order Comment: Reaso n for Exam Type 2 diabetes mellitus without complication, without long- Performed By: #### C BC, CMP, LIPID #### [facility] [address] Hemoglobin A1c/Hemoglobin.to [place] in BloodOrdered By: Ajit Pettit on 02-20-2025 HbA1c (Bld) [Mass fraction] Hemoglobin A1c percentage High 4.3-5.6 [facility] Comment on above: Increased risk for d iabetes: 5.7 - 6.4diabetes: >6.4glycemic control for adults with diabetes: <7.0 HbA1c (Bld) [Mass fraction] 6.4 % High 4.3-5.6 [facility] Comment on above: Increased risk for d iabetes: 5.7 - 6.4diabetes: >6.4glycemic control for adults with diabetes: <7.0 Order Comment: Reaso n for Exam Type 2 diabetes mellitus without complication, without long- Result Comment: Incr eased risk for diabetes: 5.7 - 6.4 diabetes: >6.4 glycemic control for adults with diabetes: <7.0 Performed By: #### C BC, CMP, LIPID #### [facility] [address] [place] [address] [place] Hemoglobin [Mass/volume] in BloodOrdered By: Ajit Pettit on 02-20-2025 Hemoglobin (Bld) [Mass/Vol] Hemoglobin [Mass/volume] in Blood 11.8-15.4 [facility] Hemoglobin (Bld) [Mass/Vol] 13.9 g/dL 11.8-15.4 [facility] Comment on above: Order Comment: Reaso n for Exam Type 2 diabetes mellitus without complication, without long- Performed By: #### C BC, CMP, LIPID #### [facility] [address] Leukocytes [#/volume] correc cherie for nucleated erythrocytes in Blood by Automated counOrdered By: Ajit Pettit on 02-20-2025 WBC corrected for nucl RBC Auto (Bld) [#/Vol] Leukocytes [#/volume] corrected for nucleated erythrocytes in Blood by Automated coun High 3.8-11.6 [facility] WBC corrected for nucl RBC Auto (Bld) [#/Vol] 18.1 10*3/uL High 3.8-11.6 [facility] Leukocytes [#/volume] in Blo od by Automated countOrdered By: Ajit Pettit on 02-20-2025 WBC (Bld) [#/Vol] 18.1 10*3/uL High 3.8-11.6 [facility] Comment on above: Order Comment: Reaso n for Exam Type 2 diabetes mellitus without complication, without long- Performed By: #### C BC, CMP, LIPID #### [facility] [address] Lipid Panelon 02-20-2025 LDL Cholesterol,Calculated 102 mg/dL High 0-100 [facility] Comment on above: Order Comment: [...] By: #### C BC, CMP, LIPID #### [facility] [address] Triglyceride w/Reflex 313 mg/dL High 0-149 [facility] Comment on above: Order Comment: [...] By: #### C BC, CMP, LIPID #### [address] VLDL CHOLESTEROL 62 mg/dL Normal [facility] Comment on above: Order Comment: Reaso n for Exam Type 2 diabetes mellitus without complication, without long- Reason for Exam Hypercholesterolemia Reason for Exam Vitamin D deficiency Performed By: #### C BC, CMP, LIPID #### [address] Lymphocytes Auto (Bld) [#/Vo l]Ordered By: Ajit Pettit on 02-20-2025 Lymphocytes (Bld) [#/Vol] Lymphocytes [#/volume] in Blood by Automated count High 1.00-4.8 [facility] Lymphocytes [#/volume] in Bl ood by Automated countOrdered By: Ajit Pettit on 02-20-2025 Lymphocytes (Bld) [#/Vol] 5.6 10*3/uL High 1.00-4.8 [facility] Comment on above: Order Comment: Reaso n for Exam Type 2 diabetes mellitus without complication, without long- Performed By: #### C BC, CMP, LIPID #### [place] [address] [place] Lymphocytes/100 WBC Auto (Bl d)Ordered By: Ajit Pettit on 02-20-2025 Lymphocytes/100 WBC (Bld) Lymphocytes/100 leukocytes in Blood by Automated count . [facility] Lymphocytes/100 leukocytes i n Blood by Automated countOrdered By: Ajit Pettit on 02-20-2025 Lymphocytes/100 WBC (Bld) 30.9 % . [facility] Comment on above: Order Comment: Reaso n for Exam Type 2 diabetes mellitus without complication, without long- Performed By: #### C BC, CMP, LIPID #### [facility] [address] MCH Auto (RBC) [Entitic mass ]Ordered By: Ajti Pettit on 02-20-2025 MCH (RBC) [Entitic mass] MCH [Entitic mass] by Automated count 24.7-34.3 [facility] MCH [Entitic mass] by Automa cherie countOrdered By: Ajit Pettit on 02-20-2025 MCH (RBC) [Entitic mass] 30.0 pg 24.7-34.3 [facility] Comment on above: Order Comment: Reaso n for Exam Type 2 diabetes mellitus without complication, without long- Performed By: #### C BC, CMP, LIPID #### [facility] [address] MCHC Auto (RBC) [Mass/Vol]Or dered By: Ajit Pettit on 02-20-2025 MCHC (RBC) [Mass/Vol] MCHC [Mass/volume] by Automated count 32.0-35.0 [facility] MCHC (RBC) [Mass/Vol] 34.1 g/dL 32.0-35.0 [facility] MCV Auto (RBC) [Entitic vol] Ordered By: Ajit Pettit on 02-20-2025 MCV (RBC) [Entitic vol] MCV [Entitic volume] by Automated count 80-100 [facility] MCV [Entitic volume] by Auto mated countOrdered By: Ajit Pettit on 02-20-2025 MCV (RBC) [Entitic vol] 88.1 fL 80-100 [facility] Comment on above: Order Comment: Reaso n for Exam Type 2 diabetes mellitus without complication, without long- Performed By: #### C BC, CMP, LIPID #### [facility] [address] Monocytes Auto (Bld) [#/Vol] Ordered By: Ajit Pettit on 02-20-2025 Monocytes (Bld) [#/Vol] Automated blood monocyte count High 0.0-0.8 [facility] Monocytes [#/volume] in Bloo d by Automated countOrdered By: Ajit Spasic on 02-20-2025 Monocytes (Bld) [#/Vol] 0.9 10*3/uL High 0.0-0.8 [facility] Comment on above: Order Comment: Reaso n for Exam Type 2 diabetes mellitus without complication, without long- Performed By: #### C BC, CMP, LIPID #### [facility] [address] [place] [address] [place] Monocytes/100 WBC Auto (Bld) Ordered By: Ajit Spasic on 02-20-2025 Monocytes/100 WBC (Bld) Automated monocyte % . [facility] Monocytes/100 leukocytes in Blood by Automated countOrdered By: Ajit Spasic on 02-20-2025 Monocytes/100 WBC (Bld) 5.0 % . [facility] Comment on above: Order Comment: Reaso n for Exam Type 2 diabetes mellitus without complication, without long- Performed By: #### C BC, CMP, LIPID #### [facility] [address] [place] [address] [place] Neutrophils Auto (Bld) [#/Vo l]Ordered By: Ajit Spasic on 02-20-2025 Neutrophils (Bld) [#/Vol] Neutrophils [#/volume] in Blood by Automated count High 1.8-7.7 [facility] Neutrophils [#/volume] in Bl ood by Automated countOrdered By: Ajit Spasic on 02-20-2025 Neutrophils (Bld) [#/Vol] 11.4 10*3/uL High 1.8-7.7 [facility] Comment on above: Order Comment: Reaso n for Exam Type 2 diabetes mellitus without complication, without long- Performed By: #### C BC, CMP, LIPID #### [facility] [address] [place] [address] [place] Neutrophils/100 WBC Auto (Bl d)Ordered By: Ajit Spasic on 02-20-2025 Neutrophils/100 WBC (Bld) Automated neutrophil % . [facility] [facility] Neutrophils/100 leukocytes i n Blood by Automated countOrdered By: Ajit Spasic on 05-20-2025 Neutrophils/100 WBC (Bld) 63.0 % . [facility] Comment on above: Order Comment: Reaso n for Exam Type 2 diabetes mellitus without complication, without long- Performed By: #### C BC, CMP, LIPID #### [facility] [address] No Panel InformationOrdered By: Ajit Pettit on 02-20-2025 Estimated GFR (CKD-EPI) > 60.0 mL/Min [facility] Creatinine Clearance (Chem N/A [facility] Nucleated erythrocytes [Pres ence] in Blood by Automated countOrdered By: Ajit Pettit on 02-20-2025 Nucleated RBC Auto Ql (Bld) Nucleated erythrocytes [Presence] in Blood by Automated count 0-0.5 [facility] Nucleated RBC Auto Ql (Bld) 0.0 /100{WBC} 0-0.5 [facility] Platelet mean volume Auto (B ld) [Entitic vol]Ordered By: Ajit Pettit on 02-20-2025 Platelet mean volume (Bld) [Entitic vol] Platelet mean volume [Entitic volume] in Blood by Automated count 6.3-10.7 [facility] Platelet mean volume [Entiti c volume] in Blood by Automated countOrdered By: Ajit Pettit on 02-20-2025 Platelet mean volume (Bld) [Entitic vol] 8.2 fL 6.3-10.7 [facility] Comment on above: Order Comment: Reaso n for Exam Type 2 diabetes mellitus without complication, without long- Performed By: #### C BC, CMP, LIPID #### [facility] [address] [place] [address] [place] Platelets Auto (Bld) [#/Vol] Ordered By: Ajit Pettit on 02-20-2025 Platelets (Bld) [#/Vol] Platelets [#/volume] in Blood by Automated count 150-450 [facility] Platelets [#/volume] in Bloo d by Automated countOrdered By: Ajit Pettit on 02-20-2025 Platelets (Bld) [#/Vol] 315 10*3/uL 150-450 [facility] Comment on above: Order Comment: Reaso n for Exam Type 2 diabetes mellitus without complication, without long- Performed By: #### C BC, CMP, LIPID #### [facility] [address] [place] [address] [place] Potassium [Moles/volume] in Serum or PlasmaOrdered By: Ajit Pettit on 02-20-2025 Potassium [Moles/Vol] Potassium [Moles/v olume] in Serum or Plasma 3.5-5.1 [facility] Potassium [Moles/Vol] 3.9 mmol/L 3.5-5.1 [facility] Comment on above: Order Comment: Reaso n for Exam Type 2 diabetes mellitus without complication, without long- Reason for Exam Hypercholesterolemia Reason for Exam Vitamin D deficiency Performed By: #### C BC, CMP, LIPID #### [facility] [address] [place] [address] Protein [Mass/volume] in Ser um or PlasmaOrdered By: Ajit Pettit on 02-20-2025 Protein [Mass/Vol] Protein [Mass/volume ] in Serum or Plasma 6.4-8.9 [facility] Protein [Mass/Vol] 7.3 g/dL 6.4-8.9 [facility] Comment on above: Order Comment: Reaso n for Exam Type 2 diabetes mellitus without complication, without long- Reason for Exam Hypercholesterolemia Reason for Exam Vitamin D deficiency Performed By: #### C BC, CMP, LIPID #### [facility] [address] [place] [address] RBC Auto (Bld) [#/Vol]Ordere d By: Ajit Pettit on 02-20-2025 RBC (Bld) [#/Vol] Erythrocytes [#/volu me] in Blood by Automated count 3.60-5.00 [facility] Serum globulin measurement b y calculation (mass/volume)Ordered By: Ajit Pettit on 02-20-2025 Globulin (S) [Mass/Vol] 2.7 g/dL [facility] Comment on above: Order Comment: Reaso n for Exam Type 2 diabetes mellitus without complication, without long- Reason for Exam Hypercholesterolemia Reason for Exam Vitamin D deficiency Performed By: #### C BC, CMP, LIPID #### [facility] [address] Serum or plasma albumin/glob ulin mass ratioOrdered By: Ajit Pettit on 02-20-2025 Albumin/Globulin [Mass ratio] Serum or plasma albumin/globulin mass ratio [facility] Albumin/Globulin [Mass ratio] 1.7 {ratio} [facility] Comment on above: Order Comment: Reaso n for Exam Type 2 diabetes mellitus without complication, without long- Reason for Exam Hypercholesterolemia Reason for Exam Vitamin D deficiency Performed By: #### C BC, CMP, LIPID #### [facility] [address] Serum or plasma anion gap de terminationOrdered By: Ajit Pettit on 02-20-2025 Anion gap [Moles/Vol] Serum or plasma an ion gap determination High 6.0-15.0 [facility] Anion gap [Moles/Vol] 15.1 mmol/L High 6.0-15.0 [facility] Comment on above: Order Comment: Reaso n for Exam Type 2 diabetes mellitus without complication, without long- Reason for Exam Hypercholesterolemia Reason for Exam Vitamin D deficiency Performed By: #### C BC, CMP, LIPID #### [facility] [address] Serum or plasma total choles terol/high density lipoprotein (HDL) cholesterol mass ratOrdered By: Ajit Pettit on 02-20-2025 Cholesterol.total/Chol esterol in HDL [Mass ratio] Serum or plasma total cholesterol/high density lipoprotein (HDL) cholesterol mass rat <5.0 [facility] Cholesterol.total/Chol esterol in HDL [Mass ratio] 4.5 {ratio} <5.0 [facility] Comment on above: Order Comment: Reaso n for Exam Type 2 diabetes mellitus without complication, without long- Reason for Exam Hypercholesterolemia Reason for Exam Vitamin D deficiency Performed By: #### C BC, CMP, LIPID #### [facility] [address] [place] [address] [place] Sodium [Moles/volume] in Ser um or PlasmaOrdered By: Ajit Pettit on 02-20-2025 Sodium [Moles/Vol] Sodium [Moles/volume ] in Serum or Plasma Low 136-145 [facility] Sodium [Moles/Vol] 135 mmol/L Low 136-145 [facility] Comment on above: Order Comment: Reaso n for Exam Type 2 diabetes mellitus without complication, without long- Reason for Exam Hypercholesterolemia Reason for Exam Vitamin D deficiency Performed By: #### C BC, CMP, LIPID #### [facility] [address] [place] [id number] [facility] Triglyceride [Mass/volume] i n Serum or PlasmaOrdered By: Ajit Pettit on 02-20-2025 Triglyceride [Mass/Vol] Triglyceride [Mass/volume] in Serum or Plasma High 0-149 [facility] Comment on above: TRIG ATP III CLASSIF ICATIONTRIG less than 150 mg/dL NormalTRIG 150-199 mg/dL Borderline highTRIG 200-500 mg/dL High TRIG greater than 500 mg/dL Very highStandard traceable to the Center for Disease Conrtrol and Prevention (CDC) test method. Triglyceride [Mass/Vol] 313 mg/dL High 0-149 [facility] Comment on above: TRIG [...] nitrogen [Mass/volume] in Serum or Plasma 04-27 [facility] Urea nitrogen [Mass/Vol] 8 mg/dL 04-27 [facility] Comment on above: Order Comment: Reaso n for Exam Type 2 diabetes mellitus without complication, without long- Reason for Exam Hypercholesterolemia Reason for Exam Vitamin D deficiency Performed By: #### C BC, CMP, LIPID #### [facility] [address] [place] [id number] [place] Urine Cultureon 02-20-2025 Bacteria identified Cx Nom (U) Reason for Exam Urinary retention Urine 40,000 colonies/ml mixed bacterial skin contaminants 2 Days PERFORMED BY: [place] [address] PATHOLOGIST BUCKLE STAPLER MAURO ELLSWORTH M.D. Normal [facility] Comment on above: Performed By: #### C BC, CMP, LIPID #### [place] [id number] [facility] Urine cultureOrdered By: Melba Pettit on 02-20-2025 Bacteria identified Cx Nom (U) Urine culture [facility] Bacteria identified Cx Nom (U) 2 Days [facility] Vitamin D 25 Hydroxy Totalon 02-20-2025 Vitamin D 25 Hydroxy Total 76.2 ng/mL Normal 30-100 [facility] Comment on above: Order Comment: [...] practice guideline. JCEM. 2010; 96(7):1911-30. PERFORMED BY: [place] [address] PATHOLOGIST BUCKLE STAPLER MAURO ELLSWORTH M.D. Performed By: #### C BC, CMP, LIPID #### [place] [id number] [facility] Vitamin D+Metabolites [Mass/ volume] in Serum or PlasmaOrdered By: Ajit Pettit on 02-20-2025 Vitamin D+Metabolites [Mass/Vol] Vitamin D+Metabolites [Mass/volume] in Serum or Plasma 30-100 [facility] Comment on above: VITAMIN D STATUS 25( [place])VITAMIN D RANGE (ng/mL) Deficient <20 Insufficient 20 to <30Sufficient 30 to 100Reference: Dominique Restrepo, Gillian NINA, et al. Evaluation,treatment, and prevention of vitamin D deficiency; an Endocrine Society clinical practice guideline. JCEM. 2010; 96(7):1911-30. Vitamin D+Metabolites [Mass/Vol] 76.2 ng/mL 30-100 [facility] Comment on above: VITAMIN D STATUS [...] in Blood by Automated count High 3.8-11.6 [facility] Urine Cultureon 02-16-2025 Bacteria identified Cx Nom (U) 50,000 colonies/ml mixed bacterial skin contaminants 2 Days PERFORMED BY: [place] [address] PATHOLOGIST BUCKLE STAPLER MAURO ELLSWORTH M.D. Normal [facility] Comment on above: Performed By: #### C BC, CMP, LIPID #### [address] Urine cultureOrdered By: Naveed Bermudez on 02-16-2025 Bacteria identified Cx Nom (U) Urine culture [facility] Bacteria identified Cx Nom (U) 2 Days [facility] MM screening mammo BI w/CADo n 02-15-2025 MM screening mammo BI w/CAD [facility] [address] [place] [address] [address] [place] [address] Mammography Report Signed Patient: Rcahel Mcgarry MR#: [id number] 1 : 1980 Acct:[id number] Age/Sex: 45 / F Adm Date: 02/15/25 Loc: [place] Room: Type: [facility] Attending Dr: Ajit DEJESUS Ordering Provider: OLEG Sharp Date of Service: 02/15/25 Procedure(s): MM screening mammo BI w/CAD Accession Number(s): ([id number]) MM/MM screening mammo BI w/CAD: Screening mammogram [...] Welch M.D. 02/15/2025 10:28 AM Dictation Location: [facility] Dictated By: Praveen Welch DO 02/15/25 1027 Signed By: 02/15/25 1028 Normal [facility] Urine Cultureon 02-12-2025 Bacteria identified Cx Nom (U) 20,000 colonies/ml mixed bacterial skin contaminants 2 Days PERFORMED BY: [place] [address] PATHOLOGIST BUCKLE STAP[employer]ER MAURO ELLSWORTH M.D. Normal [facility] Comment on above: Performed By: #### C BC, CMP, LIPID #### [facility] [address] Urine cultureOrdered By: Izzy Chong on 02-12-2025 Bacteria identified Cx Nom (U) Urine culture [facility] Bacteria identified Cx Nom (U) 2 Days [facility] ED Clinical Summaryon 2024 ED Clinical Summary ED Clinical Summary [address] [address] ED Clinical Summary Person Information Name: RACHEL MCGARRY [facility] Age: 45 Years : 1980 Sex: Female Language: Syriac PCP: AJIT PETTIT CNP Marital Status: Visit [...] 01/24/2025 12:25:32 01/24/2025 12:25:32 ADDRESS: [address] [facility] [id number] PHYS DOC NOTES: MEDICAL INFORMATION: Prescriptions Given: New Medications [id number], [address], [place] [id number], [phone] ciprofloxacin (Cipro 500 mg Tab) 1 Tablets [...] EDUCATION INFORMATION: Instructions: Urinary Tract Infection, Adult, Whjy-pn-[id number] Follow up: With: Address: When: AJIT PETTIT [address] [place] [address] [address] ([place] In 3 days 01/27/2025 Comments: Call Dr for diagnosis based follow up DIAGNOSIS: UTI symptoms Normal [facility] ED Note-Physicianon 01-25-20 ED Note-Physician ED Note-Physician Basic Information Time Seen: Tanvir RIVAS, Hussein Butler. 01/24/2025 11:40 Chief Complaint c/o worsening UTI [...] day(s), # 6 tab(s), Refills(s) 0, Pharmacy: [facility][id number], 165, cm, 01/24/25 11:37:00 EDT, Height/Length Dosing, 70.1, kg, 01/24/25 11:37:00 EDT, Weight Dosing fluconazole, 300 mg = 2 tab(s), Tab, Oral, Once, Stop date 01/24/25 12:04:00 EDT, STAT, Start date 01/24/25 12:04:00 EDT, 01/24/25 12:04:00 EDT fluconazole, 150 mg = 1 tab(s), Oral, q7day, take on 01/31/2025, # 2 tab(s), Refills(s) 0, Pharmacy: [facility]/pharmacy #[id number], 165, cm, 01/24/25 11:37:00 EDT, Height/Length Dosing, 70.1, kg, 01/24/25 11:37:00 EDT, Weight Dosing ondansetron, 4 mg = 1 tab(s), Tab-Dis, Oral, Once, Stop date 01/24/25 12:04:00 EDT, STAT, Start date 01/24/25 12:04:00 EDT, 01/24/25 12:04:00 EDT ondansetron, 4 mg = 1 tab(s), Oral, q8hr, PRN Nausea/Vomiting, # 12 tab(s), Refills(s) 0, Pharmacy: [facility]/pharmacy #[id number], 165, cm, 01/24/25 11:37:00 EDT, Height/Length Dosing, 70.1, kg, 01/24/25 11:37:00 EDT, Weight Dosing phenazopyridine, 100 mg = 1 tab(s), Oral, TID, X 7 day(s), # 21 tab(s), Refills(s) 0, Pharmacy: [facility]/pharmacy #[id number], 165, cm, 01/24/25 11:37:00 EDT, Height/Length [...] q8hr, PRN Follow-up With When Contact Information AJTI PETTIT In 3 days 01/27/2025 EDT [address] [place] [address]- (more content not included)... Normal [facility] Comment on above: Result Comment: Elec tronically Signed By: Hussein Ramey PA-C\.br\Date and Time Signed: 01/24/25 14:33 EDT\.br\Electronically Co-Signed By: Laura Marte M.D.\.br\Date and Time Co-Signed: 01/24/25 14:50 EDT ED Patient Summaryon 025 ED Patient Summary ED Patient Summary [address] [address] Patient Discharge Instructions Person Information Name: ISAIAS MCGARRYSHARAN Ackerman Age: 45 Years Arrival Date: 01/24/2025 11:30:26 Discharge Diagnosis: UTI symptoms Primary Care Physician: AJIT PETTIT CNP Provider Information Primary Provider: Laura Marte M.D. Advanced Named Account Executive:Hussein Ramey PA-C The exam and treatment you received in the Emergency Department were for an urgent problem and are not intended as complete care. It is important that you follow up with a doctor, nurse practitioner, or physician???s tax assistant for ongoing care. If your symptoms [...] With: Address: When: AJIT WILVER [address] [place] [address] [address] (1) In 3 days 01/27/2025 Comments: Call Dr for diagnosis based follow up In the event that this physician does not participate in your insurance network, please consult with your insurance company to find a nearby participating provider. Patient Education Materials: Urinary Tract Infection, Adult, Bbiu-ly-Mrqb A MESSAGE TO ALL PATIENTS REGARDING OPIOIDS PRESCRIPTION OPIOIDS: WHAT YOU NEED TO KNOW Prescription opioids can be used to help relieve phetkdby-st-aezhmi pain and are often prescribed following a [...] guidance from the Food and Drug Administration (www.fda.gov/Drugs/Resources ForYou). ??? Visit www.cdc.gov/drugoverdose to learn about the risks of opioids abuse and overdose. ??? If you believe you may be st (more content not included)... Normal [facility] UA with Cult Rflxon 01-25-20 25 Bacteria Auto Ql (U) Trace Normal Trace Fish er [facility] Comment on above: Performed By: #### 4 [id number] #### [facility] [address] [place] [address] Bilirubin Ql (U) Negative Normal Negative [facility] Comment on above: Performed By: #### 4 [id number] #### [facility] [address] [place] [address] Clarity (U) Turbid Abnormal Clear [facility] Comment on above: Performed By: #### 4 [id number] #### [facility] [address] [place] [address] Color (U) Yellow Normal Yellow [facility] Comment on above: Result Comment: Micr oscopic readings are only performed on those samples that meet specific criteria set forth by [facility]. Performed By: #### 4 [id number] #### [facility] [address] [place] [address] Epithelial cells.squamous Auto (Urine sed) [#/Area] >10 Invalid Interpretation Code [facility] Comment on above: Performed By: #### 4 [id number] #### [facility] [address] [place] [address] Glucose Ql (U) 1+ mg/dL Abnormal Negative [facility] Comment on above: Performed By: #### 4 [id number] #### [facility] [address] [place] [address] Hemoglobin Auto test strip (U) [Mass/Vol] Negative Normal Negative [facility] Comment on above: Performed By: #### 4 [id number] #### [facility] [address] [place] [address] Ketones Auto test strip Ql (U) 1+ mg/dL Abnormal Negative [facility] Comment on above: Performed By: #### 4 [id number] #### [facility] [address] [place] [address] Leukocyte esterase Auto test strip Ql (U) Negative Normal Negative [facility] Comment on above: Performed By: #### 4 [id number] #### [facility] [address] [place] [address] Mucus Auto Ql (U) Trace Normal Negative [facility] Comment on above: Performed By: #### 4 [id number] #### [facility] [address] [place] [address] Nitrite Auto test strip Ql (U) Negative Normal Negative [facility] Comment on above: Performed By: #### 4 [id number] #### [facility] [address] [place] [address] pH (U) 6.0 [pH] Invalid Interpretation Code 5.0-9.0 [facility] Comment on above: Performed By: #### 4 [id number] #### [facility] [address] [place], [place] [id number] Protein Ql (U) Negative Normal Negative [facility] Comment on above: Performed By: #### 4 [id number] #### [facility] [address] [place], [place] [address] RBC Ql (U) 4-20 Abnormal 0-3 [facility] Comment on above: Performed By: #### 4 [id number] #### [facility] [address] [place], [place] [address] Specific gravity (U) [Rel density] 1.015 Invalid Interpretation Code 1.005-1.03 0 [facility] Comment on above: Performed By: #### 4 [id number] #### [facility] [address] [place], [place] [address] Urobilinogen (U) [Mass/Vol] Negative Normal Negative [facility] Comment on above: Performed By: #### 4 [id number] #### [facility] [address] [place], [place] [address] WBC Auto (Urine sed) [#/Area] 0-5 Normal 0-5 [facility] Comment on above: Performed By: #### 4 [id number] #### [facility] [address] [place], [place] [address] Yeast.budding Computer assisted Ql (U) 1+ CD:[id number] Abnormal [facility] Comment on above: Performed By: #### 4 [id number] #### [facility] [address] [place], [place] [address] Type of Urine collection method Clean Catch Normal [facility] Comment on above: Performed By: #### 4 [id number] #### [facility] [address] [place] [id number] URINALYSISOrdered By: SYSTEM SYSTEM on 01-24-2025 Bacteria Auto Ql (U) Trace /HPF Normal Trace/HPF [facility] UA Auto SS Bilirubin Ql (U) Negative Normal Negativemg /dL [facility] UA Auto SS Clarity (U) Turbid *ABN* (01/24/25 11:39 AM) Invalid Interpretation Code Clear [facility] UA Auto SS Color (U) Yellow 1 (01/24/25 11:39 AM) Normal Yellow [facility] UA Auto SS Comment on above: Interpretive Data: M icroscopic readings are only performed on those samples that meet specific criteria set forth by [facility]. Epithelial cells.squamous Auto (Urine sed) [#/Area] >10 graded/HPF Invalid Interpretation Code [facility] UA Auto SS Glucose Ql (U) 1+ mg/dL Invalid Interpretation Code Negativemg /dL [facility] UA Auto SS Hemoglobin Auto test strip [...] [facility] UA Auto SS URINALYSISOrdered By: Mati Rielly on 04-23-2025 UA Spec Desc Clean Catch (01/24/25 11:39 AM) Normal [facility] UA Auto SS Urine Cultureon 01-18-2025 Bacteria identified Cx Nom (U) 50,000 colonies/ml mixed bacterial skin contaminants 2 Days PERFORMED BY: [place] [address] PATHOLOGIST BUCKLE STAPLER MAUOR ELLSWORTH M.D. Normal [facility] Comment on above: Performed By: #### C BC, CMP, LIPID #### [address] Urine cultureOrdered By: Naveed Rivero on 01-18-2025 Bacteria identified Cx Nom (U) Urine culture [facility] Bacteria identified Cx Nom (U) 2 Days [facility] US breast LT limitedon 09-06 US breast LT limited [facility] [place] [address] [place] [address] Mammography Report Signed Patient: Rachel Mcgarry MR#: [id number] 1 : 1980 Acct:[id number] Age/Sex: 44 / F ADM Date: 09/06/24 Loc: [place] Room: Type: [facility] Attending Dr: Ajit DEJESUS Copies to: OLEG Sharp Ordering Provider: OLEG Sharp Date of Service: 09/06/24 MM/MM diagnostic mammo LT w/CAD: Breast pain, left ([id number]) US/US breast LT limited: Breast pain, left [...] Eda Yañez M.D.09/06/2024 8:56 AM Dictation Location: [facility] Transcribed By: [facility] 09/06/24855 Dictated By: Eda Yañez MD 09/06/24818 Signed By: 09/06/24855 Normal [facility] Glucose Poct Glucometerson 1 11-06-2023 Commemt1 Glu2: Cleaned Meter Normal [facility] Comment on above: Result Comment: PERF ORMED BY: [place] [address] PATHOLOGIST BUCKLE STAPLER MAURO ELLSWORTH M.D. Performed By: #### C BC, CMP, LIPID #### [address] Glucose [Mass/Vol] 132 mg/dL Normal [facility] Comment on above: Result Comment: [place] Glucose Reference Range is dependent on time and content of last meal. Glucose of more than 200 mg/dL in a nonstressed, ambulatory subject supports the diagnosis of Diabetes Mellitus. Performed By: #### C BC, CMP, LIPID #### [facility] [address] [place] [address] Pathology Request for Lab Co rpon 09-05-2024 Pathology Request for Lab Silvia Normal [facility] Comment on above: Order Comment: PATH SENDOUT-GI SPECIMEN Result Comment: See report. Scanned copy available in EMR. PERFORMED BY: [place] [address] PATHOLOGIST BUCKLE STAPLER MAURO ELLSWORTH M.D. Performed By: #### P ATH TO [facility] #### [address] US breast RT limitedon 07-24 US breast RT limited [facility] [place] [address] [place] [address] Ultrasound Report Signed Patient: Rachel Mcgarry MR#: [id number] 1 : 1980 Acct:[id number] Age/Sex: 44 / F ADM Date: 07/24/24 Loc: [facility] Room: Type: [facility] Attending Dr: Ajit DEJESUS Ordering Provider: [...] Praveen Welch M.D.07/25/2024 10:48 AM Dictation Location: [facility] Tech: Dominique Singh Transcribed By: ROSA MARIA 07/25/24 1048 Dictated By: Praveen Welch DO 07/24/24 1642 Signed By: 07/25/24 [address] [facility] B hCG Qualon 07-09-2024 Beta HCG ( test) Ql Negative Normal [facility] Comment on above: Performed By: #### 2 [id number] #### [facility] [address] [place] [address] BMPon 07-09-2024 Anion gap [Moles/Vol] 12 mmol/L Normal 6-16 [facility] Comment on above: Performed By: #### 2 [id number] #### [facility] [address] [place] [address] Calcium [Mass/Vol] 8.9 mg/dL Normal 8.9-11.1 [facility] Comment on above: Performed By: #### 2 [id number] #### [facility] [address] [place] [address] Chloride [Moles/Vol] 99 mmol/L Low 101-111 [facility] Comment on above: Performed By: #### 2 [id number] #### [facility] [address] [place] [address] CO2 [Moles/Vol] 24 mmol/L Normal 21-31 [facility] Comment on above: Performed By: #### 2 [id number] #### [facility] [address] [place] [address] Creatinine [Mass/Vol] 0.5 mg/dL Normal 0.5-1.3 [facility] Comment on above: Performed By: #### 2 [id number] #### [facility] [address] [place] [address] Glucose [Mass/Vol] 149 mg/dL Normal 55-199 [facility] Comment on above: Performed By: #### 2 [id number] #### [facility] [address] [place] [address] Potassium [Moles/Vol] 4.1 mmol/L Normal 3.5-5.3 [facility] Comment on above: Performed By: #### 2 [id number] #### [facility] [address] [place] [address] Sodium [Moles/Vol] 131 mmol/L Low 135-145 [facility] Comment on above: Performed By: #### 2 [id number] #### [facility] [address] [place] [address] Urea nitrogen [Mass/Vol] 9 mg/dL Normal 5-21 [facility] Comment on above: Performed By: #### 2 [id number] #### [facility] [address] [place] [address] Urea nitrogen/Creatinine [Mass ratio] 18 No Units Normal 10-20 [facility] Comment on above: Performed By: #### 2 [id number] #### [facility] [address] [place] [address] CBC w/ Auto Diffon 4 Basophils/100 WBC (Bld) 1.0 % Normal 0.0-2.0 [facility] Comment on above: Performed By: #### 2 [id number] #### [facility] [address] [place] [address] Basophils/Leukocytes Auto (Bld) [Pure # fraction] 0.2 E9/L Normal 0.0-0.2 [facility] Comment on above: Performed By: #### 2 [id number] #### [facility] [address] [place] [address] Eosinophils (Bld) [#/Vol] 0.1 E9/L Normal 0.0-0.5 [facility] Comment on above: Performed By: #### 2 155738 #### [facility] [address] [place] [address] Eosinophils/100 WBC (Bld) 0.8 % Normal 0.0-8.0 [facility] Comment on above: Performed By: #### 2 859120 #### [facility] [address] [place] [address] Erythrocyte distribution width (RBC) [Ratio] 13.2 % Normal 10.9-14.2 [facility] Comment on above: Performed By: #### 2 [id number] #### [facility] [address] [place] [address] Hematocrit (Bld) [Volume fraction] 38.9 % Normal 34.0-46.0 [facility] Comment on above: Performed By: #### 2 143679 #### [facility] [address] [place] [address] Hemoglobin (Bld) [Mass/Vol] 13.4 g/dL Normal 12.0-16.0 [facility] Comment on above: Performed By: #### 2 [id number] #### [facility] [address] [place] [address] Lymphocytes (Bld) [#/Vol] 3.7 E9/L Normal 1.0-4.0 [facility] Comment on above: Performed By: #### 2 [id number] #### [facility] [address] [place] [address] Lymphocytes/100 WBC (Bld) 24.7 % Normal 14.0-50.0 [facility] Comment on above: Performed By: #### 2 072152 #### [facility] [address] [place] [address] MCH (RBC) [Entitic mass] 30.4 pg Normal 27.0-34.0 [facility] Comment on above: Performed By: #### 2 [id number] #### [facility] [address] [place] [address] MCHC (RBC) [Mass/Vol] 34.5 g/dL Normal 31.4-36.0 [facility] Comment on above: Performed By: #### 2 [id number] #### [facility] [address] [place] [address] MCV (RBC) [Entitic vol] 88.1 fL Normal 80.0-100.0 [facility] Comment on above: Performed By: #### 2 821212 #### [facility] [address] [place] [address] Monocytes (Bld) [#/Vol] 0.7 E9/L Normal 0.2-1.0 [facility] Comment on above: Performed By: #### 2 906297 #### [facility] [address] [place] [address] Neutrophils (Bld) [#/Vol] 10.3 E9/L High 2.0-7.5 [facility] Comment on above: Performed By: #### 2 175964 #### [facility] [address] [place] [address] Neutrophils/100 WBC (Bld) 69.1 % Normal 36.0-75.0 [facility] Comment on above: Performed By: #### 2 795437 #### [facility] [address] [place] [address] Platelet mean volume (Bld) [Entitic vol] 8.3 fL Normal 6.4-10.8 [facility] Comment on above: Performed By: #### 2 055904 #### [facility] [address] [place] [address] Platelets (Bld) [#/Vol] 319.0 E9/L Normal 150.0-500. 0 [facility] Comment on above: Performed By: #### 2 188260 #### [facility] [address] [place] [address] RBC (Bld) [#/Vol] 4.4 E12/L Normal 4.3-5.9 [facility] Comment on above: Performed By: #### 2 599652 #### [facility] [address] [place] [address] WBC corrected for nucl RBC Auto (Bld) [#/Vol] 14.9 E9/L High 4.0-11.0 [facility] Comment on above: Result Comment: Kaela pheral smear review performed. Performed By: #### 2 678114 #### [facility] [address] [place] [address] CHEMISTRYOrdered By: SYSTEM SYSTEM on 07-09-2024 Troponin [...] High Sensitivity Troponin I Instructions For Use, Jennifer Ridgeway, May 2018) Albumin [Mass/Vol] 4.0 g/dL Normal [...] High Sensitivity Troponin I Instructions For Use, Jennifer Ridgeway, May 2018) Urea nitrogen [Mass/Vol] 9 mg/dL Normal 5 - 21 mg/dL [facility] Urea nitrogen/Creatinine [Mass ratio] 18 mg/mg Normal 10 - 20 [facility] COAGULATIONOrdered By: Jazmyne Phillips on 07-09-2024 aPTT Coag (PPP) [Time] 28.9 s Normal 25.1 - 36.5 second(s) [facility] Auto Coag Comment on above: Interpretive Data: Roselyn bajwa 15 days - 4 weeks 1 - [...] the same coagulation reagent and instrumentation as [facility]. Currently there are no coagulation studies available worldwide for children to 14 days, and no normal ranges. Heparin therapeutic range (represented by Anti-Factor Xa activity of 0.2 - 0.4 U/mL) corresponds to PTT of 56.6 - 109.0 sec. INR Coag (PPP) [Relative time] 0.85 {INR} Invalid Interpretation Code [facility] Coag Comment on above: Interpretive Data: I NR results are specifically intended to assess patients stabilized on long-term Anticoagulation therapy suggested INR s Less Intensive Anticoagulation 2.0 3.0 Conventional Range 3.0 4.5 PT Coag (PPP) [Time] 9.5 s Normal 9.4 - 1 2.5 second(s) [facility]ag Comment on above: Interpretive Data: [...] the same coagulation reagent and instrumentation as [facility]. Currently there are no coagulation studies available worldwide for children to 14 days, and no normal ranges. ED Clinical Summaryon 2023 ED Clinical Summary ED Clinical Summary [place] [id number] ED Clinical Summary Person Information Name: RACHEL MCGARRY [facility] Age: 44 Years : 1980 Sex: Female Language: Syriac PCP: AJIT PETTIT CNP Marital Status: Phone: [phone] Visit Id: Visit Reason: Syncope/Near syncope; Body [...] 15:24:59 07/09/2024 15:24:59 07/09/2024 15:24:59 ADDRESS: [address] [place] [phone] PHYS DOC NOTES: MEDICAL INFORMATION: Prescriptions Given: [...] With: Address: When: AJIT PETTIT [address] [place] [address] Business (1) In 3 days 07/12/2024 Comments: [...] worsening symptoms. DIAGNOSIS: Malaise; Viral syndrome Normal [facility] ED Clinical Summary ED Clinical Summary [address] [address] ED Clinical Summary Person Information Name: RACHEL MCGARRY [facility] Age: 44 Years : 1980 Sex: Female Language: Syriac PCP: AJIT PETTIT CNP Marital Status: Phone: [phone] Visit Id: Visit Reason: Syncope/Near syncope; Body [...] 13:32:08 Discharge Request 07/09/2024 14:17:25 ADDRESS: [address] [place] [phone] PHYS DOC NOTES: MEDICAL INFORMATION: Prescriptions Given: [...] up: With: Address: When: AJIT PETTIT [address] [place] [address] [facility] (1) In 3 days 07/12/2024 [...] worsening symptoms. DIAGNOSIS: Malaise; Viral syndrome Normal [facility] ED Note-Physicianon 07-09-20 ED Note-Physician ED Note-Physician Basic Information Time Seen: Tristian Cedeño DOin M. 07/09/2024 13:18 Chief Complaint really shakey, light headed and I feel llike I'm gonna pass out . pt verbalized has been sick for 1 week and been to two different hospitals and diagnosised wiht low sodium and elevated WBC. pt had CT of abd and x-ray and went to [facility] and [place] History of Present Illness 44-year-old female to the emergency department with chief complaint of feeling unwell for the last week. She reports she has had malaise, fatigue, intermittently shaky, felt lightheaded earlier. She reports that she has been seen both at [facility] and some urgency department in [facility] emergency department this week for this complaint. [...] dry clinically. Previous labs and imaging from [facility] in [facility] reviewed. Aside from her mild leukocytosis [...] slight leukocytosis, down from previous labs at [facility] and [facility]. Otherwise unremarkable. Mild hyponatremia which appears [...] AJIT PETTIT In 3 days 07/12/2024 EDT [address] [place] [address]- Business (1) Additional Instructions: Call the office [...] worsening symp (more content not included)... Normal [facility] Comment on above: Result Comment: Elec tronically Signed By: Ambrose Cedeño DO\.br\Date and Time Signed: 07/09/24 14:21 EDT ED Patient Summaryon 024 ED Patient Summary ED Patient Summary [address] [address] Patient Discharge Instructions Person Information Name: RACHEL MCGARRY Age: 44 Years Arrival Date: 07/09/2024 12:39:08 Discharge Diagnosis: Malaise; Viral syndrome Primary Care Physician: AJIT PETTIT CNP Provider Information Primary Provider: Ambrose Cedeño DO Advanced Named Account Executive:None The exam and treatment you received in the Emergency Department were for an urgent problem and are not intended as complete care. It is important that you follow up with a doctor, nurse practitioner, or physician?s tax assistant for ongoing care. If your symptoms [...] With: Address: When: AJIT PETTIT [address] [place] [address] Business (1) In 3 days [...] opioids can be used to help relieve huurravl-vg-shwner pain and are often prescribed following a [...] place a (more content not included)... Normal [facility] ED Patient Summary ED Patient Summary [address] [address] Patient Discharge Instructions Person Information Name: RACHEL MCGARRY Age: 44 Years Arrival Date: 07/09/2024 12:39:08 Discharge Diagnosis: Malaise; Viral syndrome Primary Care Physician: AJIT PETTIT CNP Provider Information Primary Provider: Ambrose Cedeño DO Advanced Named Account Executive:Jenny The exam and treatment you received in the Emergency Department were for an urgent problem and are not intended as complete care. It is important that you follow up with a doctor, nurse practitioner, or physician?s tax assistant for ongoing care. If your symptoms [...] With: Address: When: AJIT PETTIT [address] [address] [facility] (1) In 3 days 07/12/2024 [...] opioids can be used to help relieve zcvedpoa-ij-tcmyjb pain and are often prescribed following a [...] place a (more content not included)... Normal [facility] HEMATOLOGYOrdered By: SYSTEM SYSTEM on 07-09-2024 Basophils/100 [...] Heme Platelets (Bld) [#/Vol] 319.0 E9/L Normal 150.0 - 500.0 E9/L Remisol Heme RBC (Bld) [#/Vol] 4.4 E12/L Normal 4.3 - 5.9 E12/L Remisol Heme WBC corrected for nucl RBC Auto (Bld) [#/Vol] 14.9 E9/L High 4.0 - 11.0 E9/L Rem[facility] Heme Comment on above: Result Comment: Kaela pheral smear review performed. Hep Func Panelon 07-09-2024 Albumin [Mass/Vol] 4.0 g/dL Normal 3.3-5.0 [facility] Comment on above: Performed By: #### 2 [id number] #### [facility] [address] [place] [address] Albumin/Globulin (S) [Mass conc ratio] 1.3 Normal 1.1-2.2 [facility] Comment on above: Performed By: #### 2 [id number] #### [facility] [address] [place] [address] ALP [Catalytic activity/Vol] 65 Int._Unit/L Normal 21-98 [facility] Comment on above: Performed By: #### 2 [id number] #### [facility] [address] [place] [address] ALT No additional P-5'-P [Catalytic activity/Vol] 10 Int._Unit/L Normal 6-46 [facility] Comment on above: Performed By: #### 2 [id number] #### [facility] [address] [place] [address] AST [Catalytic activity/Vol] 11 Int._Unit/L Normal 5-43 [facility] Comment on above: Performed By: #### 2 [id number] #### [facility] [address] [place] [address] Bilirubin [Mass/Vol] 0.2 mg/dL Normal 0.0-1.1 [facility] Comment on above: Performed By: #### 2 [id number] #### [facility] [address] [place] [address] Bilirubin.direct [Mass/Vol] 0.0 mg/dL Normal 0.0-0.4 [facility] Comment on above: Performed By: #### 2 [id number] #### [facility] [address] [place] [address] Bilirubin.indirect [Mass or moles/Vol] 0.2 mg/dL Normal 0.1-0.9 [facility] Comment on above: Performed By: #### 2 [id number] #### [facility] [address] [place] [address] Globulin (S) [Mass/Vol] 3.2 g/dL Normal 1.4-4.0 [facility] Comment on above: Performed By: #### 2 [id number] #### [facility] [address] [place] [address] Protein [Mass/Vol] 7.2 g/dL Normal 6.0-7.8 [facility] Comment on above: Performed By: #### 2 [id number] #### [facility] [address] [place] [address] PT & PTTon 07-09-2024 aPTT Coag (PPP) [Time] 28.9 second(s) Normal 25.1-36.5 [facility] Comment on above: Result Comment: Para meter 15 days - 4 weeks 1 - 5 months 6 - 11 months 1 - 5 years 6 - 10 years 11 - 17 years PTT Mean: 35.4 (27.6-45.6) Mean: 33.5 (24.8-40.7) Mean: 32.4 (25.1-40.7) Mean: 31.6 (24.0-39.2) Mean: 31.6 (26.9-38.7) Mean: 31.0 (24.6-38.4) Pediatric Reference ranges were obtained from a study by waqas Alonzo. prepared from 1437 samples obtained at 7 different centers using the same coagulation reagent and instrumentation as [facility]. Currently there are no coagulation studies available worldwide for children to 14 days, and no normal ranges. Heparin therapeutic range (represented by Anti-Factor Xa activity of 0.2 - 0.4 U/mL) corresponds to PTT of 56.6 - 109.0 sec. Performed By: #### 1 [id number] #### [facility] [address] [place] [address] INR Coag (PPP) [Relative time] 0.85 {INR} Invalid Interpretation Code [facility] Comment on above: Result Comment: INR results are specifically intended to assess patients stabilized on long-term Anticoagulation therapy suggested INR?s ?Less Intensive Anticoagulation? 2.0 ? 3.0 Conventional Range 3.0 ? 4.5 Performed By: #### 1 [id number] #### [facility] [address] [place] [address] PT Coag (PPP) [Time] 9.5 second(s) Normal 9.4-12.5 [facility] Comment on above: Result Comment: [...] the same coagulation reagent and instrumentation as [facility]. Currently there are no coagulation studies available worldwide for children to 14 days, and no normal ranges. Performed By: #### 1 [id number] #### [facility] [address] [place] [address] SEROLOGYOrdered By: Rosanna Phillips on 07-09-2024 Beta HCG ( test) Ql Negative (07/09/24 12:50 PM) Normal [facility] Man Sero Troponin 0 Hr.on 07-09-2024 Troponin HS 3.00 pg/mL Low 10.10-27.1 0 [facility] Comment on above: Result Comment: The 95% CI (Confidence Interval) PPV (Positive Predictive Value) for myocardial infarction in females is 38 pg/mL, in males 51 pg/mL. The results should be used in conjunction with clinical conditions of myocardial infarction. (Access High Sensitivity Troponin I Instructions For Use, Aplicor, May 2018) Performed By: #### 1 [id number] #### [facility] [address] [place] [address] Troponin 1 Hr.on 07-09-2024 Troponin HS 3.60 pg/mL Low 10.10-27.1 0 [facility] Comment on above: Result Comment: The 95% CI (Confidence Interval) PPV (Positive Predictive Value) for myocardial infarction in females is 38 pg/mL, in males 51 pg/mL. The results should be used in conjunction with clinical conditions of myocardial infarction. (Access High Sensitivity Troponin I Instructions For Use, Aplicor, May 2018) Performed By: #### 1 [id number] #### [facility] [address] [place] [address] XR Chest Single Viewon 07-09 XR Chest [...] Meng Terrazas MD Transcribed by: ELIZABETH Technologist: CC Technical Comments Radiation Dose: Ka,r in mGy = na DAP = na Normal [facility] eGFRon 07-09-2024 eGFR 117 mL/min/1.73 m2 Normal >=59 [facility] Comment on above: Performed By: #### 1 [id number] #### [facility] [address] [place] [address] Alanine aminotransferase [En zymatic activity/volume] in Serum or PlasmaOrdered By: Jono Ferrari on 07-06-2024 ALT [Catalytic activity/Vol] 9 U/L Normal 7-52 [facility] Comment on above: Performed By: #### C MP, CBC, LIPASE #### [address] Albumin [Mass/volume] in Ser um or Plasma by Bromocresol green (BCG) dye binding methoOrdered By: Jono Ferrari on 07-06-2024 Albumin BCG dye [Mass/Vol] 4.2 g/dL 3.5-5.7 [facility] Alkaline phosphatase [Enzyma tic activity/volume] in Serum or PlasmaOrdered By: Jono Ferrari on 07-06-2024 ALP [Catalytic activity/Vol] 59 U/L Normal 34-104 [facility] Comment on above: Performed By: #### C MP, CBC, LIPASE #### [facility] [address] [place] [address] Aspartate aminotransferase [ Enzymatic activity/volume] in Serum or PlasmaOrdered By: Jono Ferrari on 07-06-2024 AST [Catalytic activity/Vol] 10 U/L Low 13-39 [facility] Comment on above: Performed By: #### C MP, CBC, LIPASE #### [facility] [address] [place] [address] [place] Automated basophil %Ordered By: Jono Ferrari on 07-06-2024 Basophils/100 WBC (Bld) 1.1 % Normal . [facility] Comment on above: Performed By: #### C MP, CBC, LIPASE #### [facility] [address] [place] [address] [place] Automated basophil countOrde red By: Jono Ferrari on 07-06-2024 Basophils (Bld) [#/Vol] 0.3 10*3/uL High 0.0-0.2 [facility] Comment on above: Result Comment: PERF ORMED BY: [place] [address] PATHOLOGIST BUCKLE STAPLER RIDGE HUERTA M.D. Performed By: #### C MP, CBC, LIPASE #### [address] Automated blood monocyte cou ntOrdered By: Jono Ferrari on 07-06-2024 Monocytes (Bld) [#/Vol] 1.6 10*3/uL High 0.0-0.8 [facility] Comment on above: Performed By: #### C MP, CBC, LIPASE #### [address] Automated eosinophil %Ordere d By: Jono Ferrari on 07-06-2024 Eosinophils/100 WBC (Bld) 0.6 % Normal . [facility] Comment on above: Performed By: #### C MP, CBC, LIPASE #### [address] Automated eosinophil countOr dered By: Jono Ferrari on 07-06-2024 Eosinophils (Bld) [#/Vol] 0.1 10*3/uL Normal 0.0-0.45 [facility] Comment on above: Performed By: #### C MP, CBC, LIPASE #### [address] Automated monocyte %Ordered By: Jono Ferrari on 07-06-2024 Monocytes/100 WBC (Bld) 6.9 % Normal . [facility] Comment on above: Performed By: #### C MP, CBC, LIPASE #### [address] Automated neutrophil %Ordere d By: Jono Ferrari on 07-06-2024 Neutrophils/100 WBC (Bld) 66.1 % Normal . [facility] Comment on above: Performed By: #### C MP, CBC, LIPASE #### [facility] [address] Bilirubin.total [Mass/volume ] in Serum or PlasmaOrdered By: oJno Ferrari on 07-06-2024 Bilirubin [Mass/Vol] 0.3 mg/dL Normal 0.3-1.0 [facility] Comment on above: Performed By: #### C MP, CBC, LIPASE #### [facility] [address] abdomen pelvis w conon CT abdomen pelvis w con [facility] [place] [address] [place] [address] CT Scan Report Signed Patient: Rachel Mcgarry MR#: [id number] 1 : 1980 Acct:[id number] Age/Sex: 44 / F ADM Date: 07/06/24 [...] Praveen Welch M.D.07/06/2024 7:13 PM Dictation Location: [place] [address] Transcribed By: [facility] 07/06/241912 Dictated By: Praveen Welch DO 07/06/241910 Signed By: 07/06/241912 Normal [facility] Calcium [Mass/volume] in Ser um or PlasmaOrdered By: Jono Ferrari on 07-06-2024 Calcium [Mass/Vol] 9.2 mg/dL Normal 8.6-10.3 [facility] Comment on above: Performed By: #### C MP, CBC, LIPASE #### [address] Carbon dioxide, total [Moles /volume] in Serum or PlasmaOrdered By: Jono Ferrari on 07-06-2024 CO2 [Moles/Vol] 25.2 mmol/L Normal 21.0-31.0 [facility] Comment on above: Performed By: #### C MP, CBC, LIPASE #### [address] Chloride [Moles/volume] in S alissa or PlasmaOrdered By: Jono Ferrari on 07-06-2024 Chloride [Moles/Vol] 97 mmol/L Low 98-107 [facility] Comment on above: Performed By: #### C MP, CBC, LIPASE #### [address] Complete Blood Count Auto Di ffon 07-06-2024 Mean Corpuscular HGB Conc 34.5 g/dL Normal 32.0-35.0 [facility] Comment on above: Performed By: #### C MP, CBC, LIPASE #### [address] Monocytes/100 WBC (Bld) 18.69 % Normal 0.00-20.00 [facility] Comment on above: Performed By: #### C MP, CBC, LIPASE #### [address] NRBC% 0.0 /100{WBC} Normal 0-0.5 [facility] Comment on above: Performed By: #### C MP, CBC, LIPASE #### [facility] [address] Comprehensive Metabolic Pane rosa 07-06-2024 Albumin [Mass/Vol] 4.2 g/dL Normal 3.5-5.7 [facility] Comment on above: Performed By: #### C MP, CBC, LIPASE #### [facility] [address] Creatinine Clr Calc Pharmacy 108.35 Normal [facility] Comment on above: Result Comment: PERF ORMED BY: [place] [address] PATHOLOGIST BUCKLE STAPLER RIDGE HUERTA M.D. Performed By: #### C MP, CBC, LIPASE #### [address] GFR/1.73 sq M.predicted MDRD (S/P/Bld) [Vol rate/Area] mL/min/{1.73_m2} Normal [facility] Comment on above: Performed By: #### C MP, CBC, LIPASE #### [address] Creatinine [Mass/volume] in Serum or PlasmaOrdered By: Jono Ferrari on 07-06-2024 Creatinine [Mass/Vol] 0.59 mg/dL Low 0.60-1.20 [facility] Comment on above: Performed By: #### C MP, CBC, LIPASE #### [place] [address] [place] ECG 12 lead ECGon 07-06-2024 [address] [facility] [place] [address] [place] [address] Electrocardiograph Report Signed Patient: Rachel Mcgarry MR#: [id number] 1 : 1980 Acct:[id number] Age/Sex: 44 / F ADM Date: 07/06/24 [...] MD 07/06/24 193 Normal [facility] Erythrocyte distribution wid th [Ratio] by Automated countOrdered By: Jono Ferrari on 07-06-2024 Erythrocyte distribution width (RBC) [Ratio] 13.2 % Normal 11.9-15.3 [facility] Comment on above: Performed By: #### C MP, CBC, LIPASE #### [facility] [address] Erythrocytes [#/volume] in B lood by Automated countOrdered By: Jono Ferrari on 07-06-2024 RBC (Bld) [#/Vol] 4.93 10*6/uL Normal 3.60-5.00 [facility] Comment on above: Performed By: #### C MP, CBC, LIPASE #### [facility] [address] [place] [id number] [facility] Glucose [Mass/volume] in Ser um or PlasmaOrdered By: Jono Ferrari on 07-06-2024 Glucose [Mass/Vol] 142 mg/dL High 70-100 [facility] Comment on above: ADA recommended refe rence rangeRandom Glucose Reference Range is dependent on time and content of last meal. Glucose of more than 200 mg/dL in a nonstressed, ambulatory subject supports the diagnosis of Diabetes Mellitus. Result Comment: [place] [facility] Glucose Reference Range is dependent on time and content of last meal. Glucose of more than 200 mg/dL in a nonstressed, ambulatory subject supports the diagnosis of Diabetes Mellitus. ADA recommended reference range Performed By: #### C MP, CBC, LIPASE #### [address] Hematocrit [Volume Fraction] of Blood by Automated countOrdered By: Jono Ferrari on 07-06-2024 Hematocrit (Bld) [Volume fraction] 43.5 % Normal 34.0-46.4 [facility] Comment on above: Performed By: #### C MP, CBC, LIPASE #### [address] Hemoglobin [Mass/volume] in BloodOrdered By: Jono Ferrari on 07-06-2024 Hemoglobin (Bld) [Mass/Vol] 15.0 g/dL Normal 11.8-15.4 [facility] Comment on above: Performed By: #### C MP, CBC, LIPASE #### [address] Leukocytes [#/volume] correc cherie for nucleated erythrocytes in Blood by Automated counOrdered By: Jono Ferrari on 07-06-2024 WBC corrected for nucl RBC Auto (Bld) [#/Vol] 22.9 10*3/uL High 3.8-11.6 [facility] Leukocytes [#/volume] in Blo od by Automated countOrdered By: Jono Ferrari on 07-06-2024 WBC (Bld) [#/Vol] 22.9 10*3/uL High 3.8-11.6 [facility] Comment on above: Performed By: #### C MP, CBC, LIPASE #### [address] Lipase [Enzymatic activity/v olume] in Serum or PlasmaOrdered By: Jono Ferrari on 07-06-2024 Lipase [Catalytic activity/Vol] 48.0 U/L Normal 11.0-82.0 [facility] Comment on above: Result Comment: PERF ORMED BY: [place] [address] PATHOLOGIST BUCKLE STAPLER RIDGE HUERTA M.D. Performed By: #### C MP, CBC, LIPASE #### [address] Lymphocytes [#/volume] in Bl ood by Automated countOrdered By: Jono Ferrari on 07-06-2024 Lymphocytes (Bld) [#/Vol] 5.8 10*3/uL High 1.00-4.8 [facility] Comment on above: Performed By: #### C MP, CBC, LIPASE #### [facility] [address] [place] [address] Lymphocytes/100 leukocytes i n Blood by Automated countOrdered By: Jono Ferrari on 07-06-2024 Lymphocytes/100 WBC (Bld) 25.3 % Normal . [facility] Comment on above: Performed By: #### C MP, CBC, LIPASE #### [facility] [address] [place] [address] MCH [Entitic mass] by Automa cherie countOrdered By: Jono Ferrari on 07-06-2024 MCH (RBC) [Entitic mass] 30.5 pg Normal 24.7-34.3 [facility] Comment on above: Performed By: #### C MP, CBC, LIPASE #### [address] MCHC Auto (RBC) [Mass/Vol]Or dered By: Jono Ferrari on 07-06-2024 MCHC (RBC) [Mass/Vol] 34.5 g/dL 32.0-35.0 [facility] MCV [Entitic volume] by Auto mated countOrdered By: Jono Ferrari on 07-06-2024 MCV (RBC) [Entitic vol] 88.3 fL Normal 80-100 [facility] Comment on above: Performed By: #### C MP, CBC, LIPASE #### [facility] [address] [place] [address] Monocyte distribution width [Entitic volume] in Blood by AutomatedOrdered By: Jono Ferrari on 07-06-2024 Monocyte distribution width Auto (Bld) [Entitic vol] 18.69 % 0.00-20.00 [facility] Neutrophils [#/volume] in Bl ood by Automated countOrdered By: Jono Ferrari on 07-06-2024 Neutrophils (Bld) [#/Vol] 15.1 10*3/uL High 1.8-7.7 [facility] Comment on above: Performed By: #### C MP, CBC, LIPASE #### [address] No Panel InformationOrdered By: Jono Ferrari on 07-06-2024 Estimated GFR (CKD-EPI) > 60.0 mL/Min [facility] Creatinine Clearance (Chem 108.35 [facility] Nucleated erythrocytes [Pres ence] in Blood by Automated countOrdered By: Jono Ferrari on 07-06-2024 Nucleated RBC Auto Ql (Bld) 0.0 /100{WBC} 0-0.5 [facility] Platelet mean volume [Entiti c volume] in Blood by Automated countOrdered By: Jono Ferrari on 07-06-2024 Platelet mean volume (Bld) [Entitic vol] 7.2 fL Normal 6.3-10.7 [facility] Comment on above: Performed By: #### C MP, CBC, LIPASE #### [address] Platelets [#/volume] in Bloo d by Automated countOrdered By: Jono Ferrari on 07-06-2024 Platelets (Bld) [#/Vol] 387 10*3/uL Normal 150-450 [facility] Comment on above: Performed By: #### C MP, CBC, LIPASE #### [address] Potassium [Moles/volume] in Serum or PlasmaOrdered By: Jono Ferrari on 07-06-2024 Potassium [Moles/Vol] 3.9 mmol/L Normal 3.5-5.1 [facility] Comment on above: Performed By: #### C MP, CBC, LIPASE #### [place] [address] [place] Protein [Mass/volume] in Ser um or PlasmaOrdered By: Jono Ferrari on 07-06-2024 Protein [Mass/Vol] 7.2 g/dL Normal 6.4-8.9 [facility] Comment on above: Performed By: #### C MP, CBC, LIPASE #### [address] Serum globulin measurement b y calculation (mass/volume)Ordered By: Jono Ferrari on 07-06-2024 Globulin (S) [Mass/Vol] 3.0 g/dL [facility] Comment on above: Performed By: #### C MP, CBC, LIPASE #### [address] Serum or plasma albumin/glob ulin mass ratioOrdered By: Jono Ferrari on 07-06-2024 Albumin/Globulin [Mass ratio] 1.4 {ratio} [facility] Comment on above: Performed By: #### C MP, CBC, LIPASE #### [address] Serum or plasma anion gap de terminationOrdered By: Jono Ferrari on 07-06-2024 Anion gap [Moles/Vol] 13.7 mmol/L Normal 6.0-15.0 [facility] Comment on above: Performed By: #### C MP, CBC, LIPASE #### [address] Sodium [Moles/volume] in Ser um or PlasmaOrdered By: Jono Ferrari on 07-06-2024 Sodium [Moles/Vol] 132 mmol/L Low 136-145 [facility] Comment on above: Performed By: #### C MP, CBC, LIPASE #### [address] Urea nitrogen [Mass/volume] in Serum or PlasmaOrdered By: Jono Ferrari on 07-06-2024 Urea nitrogen [Mass/Vol] 8 mg/dL Normal 7-25 [facility] Comment on above: Performed By: #### C MP, CBC, LIPASE #### [address] XR chest 2V*on 07-06-2024 XR chest 2V* [facility] [place] [address] [place] [address] XRay Report Signed Patient: Rachel Mcgarry MR#: [id number] 1 : 1980 Acct:[id number] Age/Sex: 44 / F ADM Date: 07/06/24 [...] Praveen Welch M.D.07/06/2024 8:10 PM Dictation Location: [place] [address] Transcribed By: [facility] 07/06/242009 Dictated By: Praveen Welch DO 07/06/242008 Signed By: 07/06/242009 Normal [facility] Alanine aminotransferase [En zymatic activity/volume] in Serum or PlasmaOrdered By: Ajit Pettit on 07-04-2024 ALT [Catalytic activity/Vol] 7 U/L Normal 7-52 [facility] Comment on above: Performed By: #### C BC, CMP, LIPID #### [facility] [address] [place] [address] [place] Albumin [Mass/volume] in Ser um or Plasma by Bromocresol green (BCG) dye binding methoOrdered By: Ajit Pettit on 07-04-2024 Albumin BCG dye [Mass/Vol] 3.8 g/dL 3.5-5.7 [facility] Alkaline phosphatase [Enzyma tic activity/volume] in Serum or PlasmaOrdered By: Ajit Pettit on 07-04-2024 ALP [Catalytic activity/Vol] 54 U/L Normal 34-104 [facility] Comment on above: Performed By: #### C BC, CMP, LIPID #### [facility] [address] [place] [address] Aspartate aminotransferase [ Enzymatic activity/volume] in Serum or PlasmaOrdered By: Ajit Yanac on 07-04-2024 AST [Catalytic activity/Vol] 8 U/L Low 13-39 [facility] Comment on above: Performed By: #### C BC, CMP, LIPID #### [address] Automated basophil %Ordered By: Ajit Spasic on 07-04-2024 Basophils/100 WBC (Bld) 0.6 % Normal . [facility] Comment on above: Performed By: #### C BC, CMP, LIPID #### [address] Automated basophil countOrde red By: Ajit Millanc on 07-04-2024 Basophils (Bld) [#/Vol] 0.1 10*3/uL Normal 0.0-0.2 [facility] Comment on above: Result Comment: PERF ORMED BY: [place] [address] PATHOLOGIST BUCKLE STAPL[employer] RIDGE HUERTA M.D. Performed By: #### C BC, CMP, LIPID #### [address] Automated blood monocyte cou ntOrdered By: Ajit Millanc on 07-04-2024 Monocytes (Bld) [#/Vol] 1.5 10*3/uL High 0.0-0.8 [facility] Comment on above: Performed By: #### C BC, CMP, LIPID #### [address] Automated eosinophil %Ordere d By: Ajit Spasic on 07-04-2024 Eosinophils/100 WBC (Bld) 0.5 % Normal . [facility] Comment on above: Performed By: #### C BC, CMP, LIPID #### [address] Automated eosinophil countOr dered By: Ajit Spasic on 07-04-2024 Eosinophils (Bld) [#/Vol] 0.1 10*3/uL Normal 0.0-0.45 [facility] Comment on above: Performed By: #### C BC, CMP, LIPID #### [address] Automated monocyte %Ordered By: Ajit Spasic on 07-04-2024 Monocytes/100 WBC (Bld) 7.9 % Normal . [facility] Comment on above: Performed By: #### C BC, CMP, LIPID #### [address] Automated neutrophil %Ordere d By: Ajit Spasic on 07-04-2024 Neutrophils/100 WBC (Bld) 66.4 % Normal . [facility] Comment on above: Performed By: #### C BC, CMP, LIPID #### [address] Bilirubin.total [Mass/volume ] in Serum or PlasmaOrdered By: Ajit Millanc on 07-04-2024 Bilirubin [Mass/Vol] 0.3 mg/dL Normal 0.3-1.0 [facility] Comment on above: Performed By: #### C BC, CMP, LIPID #### [place] [address] [place] Calcium [Mass/volume] in Ser um or PlasmaOrdered By: Ajit Millanc on 07-04-2024 Calcium [Mass/Vol] 8.9 mg/dL Normal 8.6-10.3 [facility] Comment on above: Performed By: #### C BC, CMP, LIPID #### [place] [address] [place] Carbon dioxide, total [Moles /volume] in Serum or PlasmaOrdered By: Ajit Spasic on 07-04-2024 CO2 [Moles/Vol] 29.2 mmol/L Normal 21.0-31.0 [facility] Comment on above: Performed By: #### C BC, CMP, LIPID #### [place] [address] [place] Chloride [Moles/volume] in S alissa or PlasmaOrdered By: Ajit Spasic on 07-04-2024 Chloride [Moles/Vol] 92 mmol/L Low 98-107 [facility] Comment on above: Performed By: #### C BC, CMP, LIPID #### [facility] [address] Cholesterol [Mass/volume] in Serum or PlasmaOrdered By: Ajit Pettit on 07-04-2024 Cholesterol [Mass/Vol] 185 mg/dL Normal 140-200 [facility] Comment on above: Chol less than 200 m g/dl low riskChol 201-239 mg/dl borderline riskChol 240 mg/dl and greater high risk Result Comment: Chol less than 200 mg/dl low risk Chol 201-239 mg/dl borderline risk Chol 240 mg/dl and greater high risk Performed By: #### C BC, CMP, LIPID #### [facility] [address] Cholesterol in LDL Calc [Mas s/Vol]Ordered By: Ajit Pettit on 07-04-2024 Cholesterol in LDL [Mass/Vol] 58 mg/dL 0-100 [facility] Comment on above: LDL ATP III CLASSIFI CATIONLDL less than 100 mg/dL OptimalLDL 100-129 mg/dL Near or above optimalLDL 130-159 mg/dL Borderline highLDL 160-189 mg/dL HighLDL greater than 189 mg/dL Very high Cholesterol in VLDL Calc [Ma ss/Vol]Ordered By: Ajit Pettit on 07-04-2024 Cholesterol in VLDL [Mass/Vol] 78 mg/dL [facility] Complete Blood Count Auto Di ffon 07-04-2024 Mean Corpuscular HGB Conc 34.2 g/dL Normal 32.0-35.0 [facility] Comment on above: Performed By: #### C BC, CMP, LIPID #### [facility] [address] NRBC% 0.1 /100{WBC} Normal 0-0.5 [facility] Comment on above: Performed By: #### C BC, CMP, LIPID #### [facility] [address] Comprehensive Metabolic Pane rosa 07-04-2024 Albumin [Mass/Vol] 3.8 g/dL Normal 3.5-5.7 [facility] Comment on above: Performed By: #### C BC, CMP, LIPID #### [address] GFR/1.73 sq M.predicted MDRD (S/P/Bld) [Vol rate/Area] mL/min/{1.73_m2} Normal [facility] Comment on above: Performed By: #### C BC, CMP, LIPID #### [address] Creatinine [Mass/volume] in Serum or PlasmaOrdered By: Ajit Pettit on 07-04-2024 Creatinine [Mass/Vol] 0.61 mg/dL Normal 0.60-1.20 [facility] Comment on above: Performed By: #### C BC, CMP, LIPID #### [address] Erythrocyte distribution wid th [Ratio] by Automated countOrdered By: Ajit Pettit on 07-04-2024 Erythrocyte distribution width (RBC) [Ratio] 13.0 % Normal 11.9-15.3 [facility] Comment on above: Performed By: #### C BC, CMP, LIPID #### [address] Erythrocytes [#/volume] in B lood by Automated countOrdered By: Ajit Pettit on 07-04-2024 RBC (Bld) [#/Vol] 4.55 10*6/uL Normal 3.60-5.00 [facility] Comment on above: Performed By: #### C BC, CMP, LIPID #### [place] [address] [place] Glucose [Mass/volume] in Ser um or PlasmaOrdered By: Ajit Pettit on 07-04-2024 Glucose [Mass/Vol] 164 mg/dL High 70-100 [facility] Comment on above: ADA recommended refe rence rangeRandom Glucose Reference Range is dependent on time and content of last meal. Glucose of more than 200 mg/dL in a nonstressed, ambulatory subject supports the diagnosis of Diabetes Mellitus. Result Comment: [facility] Glucose Reference Range is dependent on time and content of last meal. Glucose of more than 200 mg/dL in a nonstressed, ambulatory subject supports the diagnosis of Diabetes Mellitus. ADA recommended reference range Performed By: #### C BC, CMP, LIPID #### [facility] [address] Hematocrit [Volume Fraction] of Blood by Automated countOrdered By: Ajit Pettit on 07-04-2024 Hematocrit (Bld) [Volume fraction] 40.0 % Normal 34.0-46.4 [facility] Comment on above: Performed By: #### C BC, CMP, LIPID #### [address] Hemoglobin [Mass/volume] in BloodOrdered By: Ajit Pettit on 07-04-2024 Hemoglobin (Bld) [Mass/Vol] 13.7 g/dL Normal 11.8-15.4 [facility] Comment on above: Performed By: #### C BC, CMP, LIPID #### [address] Leukocytes [#/volume] correc cherie for nucleated erythrocytes in Blood by Automated counOrdered By: Ajit Pettit on 07-04-2024 WBC corrected for nucl RBC Auto (Bld) [#/Vol] 19.3 10*3/uL High 3.8-11.6 [facility] Leukocytes [#/volume] in Blo od by Automated countOrdered By: Ajit Pettit on 07-04-2024 WBC (Bld) [#/Vol] 19.3 10*3/uL High 3.8-11.6 [facility] Comment on above: Performed By: #### C BC, CMP, LIPID #### [address] Lipid Panelon 07-04-2024 LDL Cholesterol,Calculated 58 mg/dL Normal 0-100 [facility] Comment on above: Result Comment: LDL ATP III CLASSIFICATION LDL less than 100 mg/dL Optimal LDL 100-129 mg/dL Near or above optimal LDL 130-159 mg/dL Borderline high LDL 160-189 mg/dL High LDL greater than 189 mg/dL Very high Performed By: #### C BC, CMP, LIPID #### [address] Triglyceride w/Reflex 393 mg/dL High 0-149 [facility] Comment on above: Result Comment: TRIG ATP III CLASSIFICATION TRIG less than 150 mg/dL Normal TRIG 150-199 mg/dL Borderline high TRIG 200-500 mg/dL High TRIG greater than 500 mg/dL Very high Standard traceable to the Center for Disease Conrtrol and Prevention (CDC) test method. Performed By: #### C BC, CMP, LIPID #### [address] VLDL CHOLESTEROL 78 mg/dL Normal [facility] Comment on above: Performed By: #### C BC, CMP, LIPID #### [address] Lymphocytes [#/volume] in Bl ood by Automated countOrdered By: Ajit Pettit on 07-04-2024 Lymphocytes (Bld) [#/Vol] 4.7 10*3/uL Normal 1.00-4.8 [facility] Comment on above: Performed By: #### C BC, CMP, LIPID #### [address] Lymphocytes/100 leukocytes i n Blood by Automated countOrdered By: Ajit Pettit on 07-04-2024 Lymphocytes/100 WBC (Bld) 24.6 % Normal . [facility] Comment on above: Performed By: #### C BC, CMP, LIPID #### [place] [address] [place] MCH [Entitic mass] by Automa cherie countOrdered By: Ajit Pettit on 07-04-2024 MCH (RBC) [Entitic mass] 30.0 pg Normal 24.7-34.3 [facility] Comment on above: Performed By: #### C BC, CMP, LIPID #### [address] [place] [address] [place] MCHC Auto (RBC) [Mass/Vol]Or dered By: Ajit Pettit on 07-04-2024 MCHC (RBC) [Mass/Vol] 34.2 g/dL 32.0-35.0 [facility] MCV [Entitic volume] by Auto mated countOrdered By: Ajit Pettit on 07-04-2024 MCV (RBC) [Entitic vol] 87.9 fL Normal 80-100 [facility] Comment on above: Performed By: #### C BC, CMP, LIPID #### [facility] [address] [place] [address] Neutrophils [#/volume] in Bl ood by Automated countOrdered By: Ajit Pettit on 07-04-2024 Neutrophils (Bld) [#/Vol] 12.8 10*3/uL High 1.8-7.7 [facility] Comment on above: Performed By: #### C BC, CMP, LIPID #### [facility] [address] [place] [address] No Panel InformationOrdered By: Ajit Pettit on 07-04-2024 Estimated GFR (CKD-EPI) > 60.0 mL/Min [facility] Creatinine Clearance (Chem N/A [facility] Nucleated erythrocytes [Pres ence] in Blood by Automated countOrdered By: Ajit Pettit on 07-04-2024 Nucleated RBC Auto Ql (Bld) 0.1 /100{WBC} 0-0.5 [facility] Platelet mean volume [Entiti c volume] in Blood by Automated countOrdered By: Ajit Pettit on 07-04-2024 Platelet mean volume (Bld) [Entitic vol] 7.0 fL Normal 6.3-10.7 [facility] Comment on above: Performed By: #### C BC, CMP, LIPID #### [facility] [address] [place] [address] Platelets [#/volume] in Bloo d by Automated countOrdered By: Ajit Pettit on 07-04-2024 Platelets (Bld) [#/Vol] 350 10*3/uL Normal 150-450 [facility] Comment on above: Performed By: #### C BC, CMP, LIPID #### [facility] [address] Potassium [Moles/volume] in Serum or PlasmaOrdered By: Ajit Millanc on 07-04-2024 Potassium [Moles/Vol] 4.6 mmol/L Normal 3.5-5.1 [facility] Comment on above: Performed By: #### C BC, CMP, LIPID #### [address] Protein [Mass/volume] in Ser um or PlasmaOrdered By: Ajit Millanc on 07-04-2024 Protein [Mass/Vol] 5.9 g/dL Low 6.4-8.9 [facility] Comment on above: Performed By: #### C BC, CMP, LIPID #### [address] Serum globulin measurement b y calculation (mass/volume)Ordered By: Ajit Pettit on 07-04-2024 Globulin (S) [Mass/Vol] 2.1 g/dL [facility] Comment on above: Performed By: #### C BC, CMP, LIPID #### [address] Serum or plasma albumin/glob ulin mass ratioOrdered By: Ajit Millanc on 07-04-2024 Albumin/Globulin [Mass ratio] 1.8 {ratio} [facility] Comment on above: Performed By: #### C BC, CMP, LIPID #### [address] Serum or plasma anion gap de terminationOrdered By: Ajit Pettit on 07-04-2024 Anion gap [Moles/Vol] 13.4 mmol/L Normal 6.0-15.0 [facility] Comment on above: Performed By: #### C BC, CMP, LIPID #### [facility] [address] [place] [address] Serum or plasma high density lipoprotein (HDL) cholesterol measurementOrdered By: Ajit Pettit on 07-04-2024 Cholesterol in HDL [Mass/Vol] 48 mg/dL Normal 23-92 [facility] Comment on above: HDL CHOL ATP-III CLA SSIFICATION Cardiovascular RiskHDL > or equal to 60 mg/dL LOWHDL < 40 mg/dL HIGH Result Comment: HDL CHOL ATP-III CLASSIFICATION Cardiovascular Risk HDL > or equal to 60 mg/dL LOW HDL < 40 mg/dL HIGH Performed By: #### C BC, CMP, LIPID #### [facility] [address] Serum or plasma total choles terol/high density lipoprotein (HDL) cholesterol mass ratOrdered By: Ajit Pettit on 07-04-2024 Cholesterol.total/Chol esterol in HDL [Mass ratio] 3.9 {ratio} Normal <5.0 [facility] Comment on above: Result Comment: PERF ORMED BY: [place] [address] PATHOLOGIST BUCKLE STAPLER RIDGE HUERTA M.D. Performed By: #### C BC, CMP, LIPID #### [facility] [address] Sodium [Moles/volume] in Ser um or PlasmaOrdered By: Ajit Pettit on 07-04-2024 Sodium [Moles/Vol] 130 mmol/L Low 136-145 [facility] Comment on above: Performed By: #### C BC, CMP, LIPID #### [facility] [address] Triglyceride [Mass/volume] i n Serum or PlasmaOrdered By: Ajit Pettit on 07-04-2024 Triglyceride [Mass/Vol] 393 mg/dL High 0-149 [facility] Comment on above: TRIG ATP III CLASSIF ICATIONTRIG less than 150 mg/dL NormalTRIG 150-199 mg/dL Borderline highTRIG 200-500 mg/dL High TRIG greater than 500 mg/dL Very highStandard traceable to the Center for Disease Conrtrol and Prevention (CDC) test method. Urea nitrogen [Mass/volume] in Serum or PlasmaOrdered By: Ajit Pettit on 07-04-2024 Urea nitrogen [Mass/Vol] 6 mg/dL Low 7-25 [facility] Comment on above: Performed By: #### C BC, CMP, LIPID #### [facility] [address] [place] [id number] [facility] MR lumbar spine wo conon MR lumbar spine wo con [facility] [place] [address] [place] [id number] MRI Report Signed Patient: Rachel Mcgarry MR#: [id number] 1 : 1980 Acct:[id number] Age/Sex: 44 / F ADM Date: 06/08/24 Loc: [facility] Room: Type: [facility] Attending Dr: Ajit DEJESUS Copies to: [...] Dar Messina M.D.06/08/2024 4:52 PM Dictation Location: [place] [address] Transcribed By: [facility] 06/08/24 1652 Dictated By: Dar Messina II, MD 06/08/24 1643 Signed By: 06/08/24 1652 Normal [facility] A1C with Estimated Average G [place] 05-16-2024 Glucose [Mass/Vol] 137 mg/dL Normal [facility] Comment on above: Order Comment: Reaso n for Exam Type 2 diabetes mellitus without complication, without long- Result Comment: PERF ORMED BY: [place] [id number] PATHOLOGIST BUCKLE STAPLER RIDGE HUERTA M.D. Performed By: #### C BC, CMP, LIPID #### [address] Alanine aminotransferase [En zymatic activity/volume] in Serum or PlasmaOrdered By: Ajit Pettit on 05-16-2024 ALT [Catalytic activity/Vol] 11 U/L Normal [facility] Comment on above: Order Comment: Reaso n for Exam Type 2 diabetes mellitus without complication, without long- Reason for Exam Vitamin D deficiency Performed By: #### C BC, CMP, LIPID #### [facility] [address] [place] [address] [place] Albumin [Mass/volume] in Ser um or Plasma by Bromocresol green (BCG) dye binding methoOrdered By: Ajit Pettit on 05-16-2024 Albumin BCG dye [Mass/Vol] 4.2 g/dL 3.5-5.7 [facility] Alkaline phosphatase [Enzyma tic activity/volume] in Serum or PlasmaOrdered By: Ajit Pettit on 05-16-2024 ALP [Catalytic activity/Vol] 62 U/L Normal 34-104 [facility] Comment on above: Order Comment: Reaso n for Exam Type 2 diabetes mellitus without complication, without long- Reason for Exam Vitamin D deficiency Performed By: #### C BC, CMP, LIPID #### [facility] [address] [place] [address] [place] Aspartate aminotransferase [ Enzymatic activity/volume] in Serum or PlasmaOrdered By: Ajit Pettit on 05-16-2024 AST [Catalytic activity/Vol] 11 U/L Low 13-39 [facility] Comment on above: Order Comment: Reaso n for Exam Type 2 diabetes mellitus without complication, without long- Reason for Exam Vitamin D deficiency Performed By: #### C BC, CMP, LIPID #### [facility] [address] [place] [address] [place] Automated basophil %Ordered By: Ajit Pettit on 05-16-2024 Basophils/100 WBC (Bld) 0.6 % Normal . [facility] Comment on above: Order Comment: Reaso n for Exam Type 2 diabetes mellitus without complication, without long- Performed By: #### C BC, CMP, LIPID #### [facility] [address] [place] [address] [place] Automated basophil countOrde red By: Ajit Pettit on 05-16-2024 Basophils (Bld) [#/Vol] 0.1 10*3/uL Normal 0.0-0.2 [facility] Comment on above: Order Comment: Reaso n for Exam Type 2 diabetes mellitus without complication, without long- Result Comment: PERF ORMED BY: [place] [address] PATHOLOGIST BUCKLE STAPLER RIDGE HUERTA M.D. Performed By: #### C BC, CMP, LIPID #### [address] Automated blood monocyte cou ntOrdered By: Ajit Spasic on 05-16-2024 Monocytes (Bld) [#/Vol] 0.7 10*3/uL Normal 0.0-0.8 [facility] Comment on above: Order Comment: Reaso n for Exam Type 2 diabetes mellitus without complication, without long- Performed By: #### C BC, CMP, LIPID #### [address] Automated eosinophil %Ordere d By: Ajit Spasic on 05-16-2024 Eosinophils/100 WBC (Bld) 0.4 % Normal . [facility] Comment on above: Order Comment: Reaso n for Exam Type 2 diabetes mellitus without complication, without long- Performed By: #### C BC, CMP, LIPID #### [address] Automated eosinophil countOr dered By: Ajit Spasic on 05-16-2024 Eosinophils (Bld) [#/Vol] 0.1 10*3/uL Normal 0.0-0.45 [facility] Comment on above: Order Comment: Reaso n for Exam Type 2 diabetes mellitus without complication, without long- Performed By: #### C BC, CMP, LIPID #### [address] Automated monocyte %Ordered By: Ajit Spasic on 05-16-2024 Monocytes/100 WBC (Bld) 4.4 % Normal . [facility] Comment on above: Order Comment: Reaso n for Exam Type 2 diabetes mellitus without complication, without long- Performed By: #### C BC, CMP, LIPID #### [address] Automated neutrophil %Ordere d By: Ajit Spasic on 05-16-2024 Neutrophils/100 WBC (Bld) 61.6 % Normal . [facility] Comment on above: Order Comment: Reaso n for Exam Type 2 diabetes mellitus without complication, without long- Performed By: #### C BC, CMP, LIPID #### [facility] [address] [id number] [facility] Bilirubin.total [Mass/volume ] in Serum or PlasmaOrdered By: Ajit Pettit on 05-16-2024 Bilirubin [Mass/Vol] 0.3 mg/dL Normal 0.3-1.0 [facility] Comment on above: Order Comment: Reaso n for Exam Type 2 diabetes mellitus without complication, without long- Reason for Exam Vitamin D deficiency Performed By: #### C BC, CMP, LIPID #### [facility] [address] [id number] [place] Calcium [Mass/volume] in Ser um or PlasmaOrdered By: Ajit Pettit on 05-16-2024 Calcium [Mass/Vol] 9.0 mg/dL Normal 8.6-10.3 [facility] Comment on above: Order Comment: Reaso n for Exam Type 2 diabetes mellitus without complication, without long- Reason for Exam Vitamin D deficiency Performed By: #### C BC, CMP, LIPID #### [facility] [address] [id number] [facility] Carbon dioxide, total [Moles /volume] in Serum or PlasmaOrdered By: Ajit Pettit on 05-16-2024 CO2 [Moles/Vol] 26.0 mmol/L Normal 21.0-31.0 [facility] Comment on above: Order Comment: Reaso n for Exam Type 2 diabetes mellitus without complication, without long- Reason for Exam Vitamin D deficiency Performed By: #### C BC, CMP, LIPID #### [facility] [address] [id number] [place] Chloride [Moles/volume] in S alissa or PlasmaOrdered By: Ajit Pettit on 05-16-2024 Chloride [Moles/Vol] 96 mmol/L Low 98-107 [facility] Comment on above: Order Comment: Reaso n for Exam Type 2 diabetes mellitus without complication, without long- Reason for Exam Vitamin D deficiency Performed By: #### C BC, CMP, LIPID #### [facility] [address] Cholesterol [Mass/volume] in Serum or PlasmaOrdered By: Ajit Pettit on 05-16-2024 Cholesterol [Mass/Vol] 237 mg/dL High 140-200 [facility] Comment on above: Chol [...] By: #### C BC, CMP, LIPID #### [facility] [address] [id number] [facility] Cholesterol in LDL Calc [Mas s/Vol]Ordered By: Ajit Pettit on 05-16-2024 Cholesterol in LDL [Mass/Vol] 130 mg/dL High 0-100 [facility] Comment on above: LDL ATP III CLASSIFI CATIONLDL less than 100 mg/dL OptimalLDL 100-129 mg/dL Near or above optimalLDL 130-159 mg/dL Borderline highLDL 160-189 mg/dL HighLDL greater than 189 mg/dL Very high Cholesterol in VLDL Calc [Ma ss/Vol]Ordered By: Ajit Pettit on 05-16-2024 Cholesterol in VLDL [Mass/Vol] 64 mg/dL [facility] Complete Blood Count Auto Di ffon 05-16-2024 Mean Corpuscular HGB Conc 34.3 g/dL Normal 32.0-35.0 [facility] Comment on above: Order Comment: Reaso n for Exam Type 2 diabetes mellitus without complication, without long- Performed By: #### C BC, CMP, LIPID #### [facility] [address] [place] [address] [place] NRBC% 0.1 /100{WBC} Normal 0-0.5 [facility] Comment on above: Order Comment: Reaso n for Exam Type 2 diabetes mellitus without complication, without long- Performed By: #### C BC, CMP, LIPID #### [facility] [address] [id number] [facility] Comprehensive Metabolic Pane rosa 05-16-2024 Albumin [Mass/Vol] 4.2 g/dL Normal 3.5-5.7 [facility] Comment on above: Order Comment: Reaso n for Exam Type 2 diabetes mellitus without complication, without long- Reason for Exam Vitamin D deficiency Performed By: #### C BC, CMP, LIPID #### [facility] [address] GFR/1.73 sq M.predicted MDRD (S/P/Bld) [Vol rate/Area] mL/min/{1.73_m2} Normal [facility] Comment on above: Order Comment: Reaso n for Exam Type 2 diabetes mellitus without complication, without long- Reason for Exam Vitamin D deficiency Performed By: #### C BC, CMP, LIPID #### [address] Creatinine [Mass/volume] in Serum or PlasmaOrdered By: Ajit Pettit on 05-16-2024 Creatinine [Mass/Vol] 0.47 mg/dL Low 0.60-1.20 [facility] Comment on above: Order Comment: Reaso n for Exam Type 2 diabetes mellitus without complication, without long- Reason for Exam Vitamin D deficiency Performed By: #### C BC, CMP, LIPID #### [address] Erythrocyte distribution wid th [Ratio] by Automated countOrdered By: Ajit Pettit on 05-16-2024 Erythrocyte distribution width (RBC) [Ratio] 13.3 % Normal 11.9-15.3 [facility] Comment on above: Order Comment: Reaso n for Exam Type 2 diabetes mellitus without complication, without long- Performed By: #### C BC, CMP, LIPID #### [facility] [address] [place] [address] [place] Erythrocytes [#/volume] in B lood by Automated countOrdered By: Ajit Pettit on 05-16-2024 RBC (Bld) [#/Vol] 4.64 10*6/uL Normal 3.60-5.00 [facility] Comment on above: Order Comment: Reaso n for Exam Type 2 diabetes mellitus without complication, without long- Performed By: #### C BC, CMP, LIPID #### [facility] [address] [id number] [place] Glucose [Mass/volume] in Ser um or PlasmaOrdered By: Ajit Pettit on 05-16-2024 Glucose [Mass/Vol] 74 mg/dL Normal 70-100 [facility] Comment on above: ADA recommended refe rence rangeRandom Glucose Reference Range is dependent on time and content of last meal. Glucose of more than 200 mg/dL in a nonstressed, ambulatory subject supports the diagnosis of Diabetes Mellitus. Order Comment: Reaso n for Exam Type 2 diabetes mellitus without complication, without long- Reason for Exam Vitamin D deficiency Result Comment: [place] Glucose Reference Range is dependent on time and content of last meal. Glucose of more than 200 mg/dL in a nonstressed, ambulatory subject supports the diagnosis of Diabetes Mellitus. ADA recommended reference range Performed By: #### C ASHLEY CMP, LIPID #### [facility] [address] [place] [address] [place] Glucose mean value [Mass/vol ume] in Blood Estimated from glycated hemoglobinOrdered By: Ajit Pettit on 05-16-2024 Average glucose Estimated from glycated hemoglobin (Bld) [Mass/Vol] 137 mg/dL [facility] Hematocrit [Volume Fraction] of Blood by Automated countOrdered By: Ajit Pettit on 05-16-2024 Hematocrit (Bld) [Volume fraction] 41.1 % Normal 34.0-46.4 [facility] Comment on above: Order Comment: Reaso n for Exam Type 2 diabetes mellitus without complication, without long- Performed By: #### C ASHLEY, CMP, LIPID #### [facility] [address] [phone] [place] Hemoglobin A1c percentageOrd ered By: Ajit Pettit on 05-16-2024 HbA1c (Bld) [Mass fraction] 6.4 % High 4.3-5.6 [facility] Comment on above: Increased risk for d iabetes: 5.7 - 6.4diabetes: >6.4glycemic control for adults with diabetes: <7.0 Order Comment: Reaso n for Exam Type 2 diabetes mellitus without complication, without long- Result Comment: Incr eased risk for diabetes: 5.7 - 6.4 diabetes: >6.4 glycemic control for adults with diabetes: <7.0 Performed By: #### C BC, CMP, LIPID #### [facility] [address] [id number] [facility] Hemoglobin [Mass/volume] in BloodOrdered By: Ajit Pettit on 05-16-2024 Hemoglobin (Bld) [Mass/Vol] 14.1 g/dL Normal 11.8-15.4 [facility] Comment on above: Order Comment: Reaso n for Exam Type 2 diabetes mellitus without complication, without long- Performed By: #### C BC, CMP, LIPID #### [facility] [address] [id number] [facility] Leukocytes [#/volume] correc cherie for nucleated erythrocytes in Blood by Automated counOrdered By: Ajit Pettit on 05-16-2024 WBC corrected for nucl RBC Auto (Bld) [#/Vol] 15.0 10*3/uL High 3.8-11.6 [facility] Leukocytes [#/volume] in Blo od by Automated countOrdered By: Ajit Pettit on 05-16-2024 WBC (Bld) [#/Vol] 15.0 10*3/uL High 3.8-11.6 [facility] Comment on above: Order Comment: Reaso n for Exam Type 2 diabetes mellitus without complication, without long- Performed By: #### C BC, CMP, LIPID #### [facility] [address] [phone] [facility] Lipid Panelon 05-16-2024 LDL Cholesterol,Calculated 130 mg/dL High 0-100 [facility] Comment on above: Order Comment: [...] By: #### C BC, CMP, LIPID #### [address] Triglyceride w/Reflex 321 mg/dL High 0-149 [facility] Comment on above: Order Comment: [...] By: #### C BC, CMP, LIPID #### [address] VLDL CHOLESTEROL 64 mg/dL Normal [facility] Comment on above: Order Comment: Reaso n for Exam Type 2 diabetes mellitus without complication, without long- Reason for Exam Vitamin D deficiency Performed By: #### C BC, CMP, LIPID #### [address] Lymphocytes [#/volume] in Bl ood by Automated countOrdered By: Ajit Pettit on 05-16-2024 Lymphocytes (Bld) [#/Vol] 5.0 10*3/uL High 1.00-4.8 [facility] Comment on above: Order Comment: Reaso n for Exam Type 2 diabetes mellitus without complication, without long- Performed By: #### C BC, CMP, LIPID #### [place] [address] [place] Lymphocytes/100 leukocytes i n Blood by Automated countOrdered By: Ajit Pettit on 05-16-2024 Lymphocytes/100 WBC (Bld) 33.0 % Normal . [facility] Comment on above: Order Comment: Reaso n for Exam Type 2 diabetes mellitus without complication, without long- Performed By: #### C BC, CMP, LIPID #### [place] [address] [place] MCH [Entitic mass] by Automa cherie countOrdered By: Ajit Pettit on 05-16-2024 MCH (RBC) [Entitic mass] 30.3 pg Normal 24.7-34.3 [facility] Comment on above: Order Comment: Reaso n for Exam Type 2 diabetes mellitus without complication, without long- Performed By: #### C BC, CMP, LIPID #### [facility] [address] [place] [address] MCHC Auto (RBC) [Mass/Vol]Or dered By: Ajit Pettit on 05-16-2024 MCHC (RBC) [Mass/Vol] 34.3 g/dL 32.0-35.0 [facility] MCV [Entitic volume] by Auto mated countOrdered By: Ajit Pettit on 05-16-2024 MCV (RBC) [Entitic vol] 88.4 fL Normal 80-100 [facility] Comment on above: Order Comment: Reaso n for Exam Type 2 diabetes mellitus without complication, without long- Performed By: #### C BC, CMP, LIPID #### [facility] [address] [place] [address] Neutrophils [#/volume] in Bl ood by Automated countOrdered By: Ajit Pettit on 05-16-2024 Neutrophils (Bld) [#/Vol] 9.3 10*3/uL High 1.8-7.7 [facility] Comment on above: Order Comment: Reaso n for Exam Type 2 diabetes mellitus without complication, without long- Performed By: #### C BC, CMP, LIPID #### [facility] [address] [place] [address] No Panel InformationOrdered By: Ajit Pettit on 05-16-2024 Estimated GFR (CKD-EPI) > 60.0 mL/Min [facility] Creatinine Clearance (Chem N/A [facility] Nucleated erythrocytes [Pres ence] in Blood by Automated countOrdered By: Ajit Pettit on 05-16-2024 Nucleated RBC Auto Ql (Bld) 0.1 /100{WBC} 0-0.5 [facility] Platelet mean volume [Entiti c volume] in Blood by Automated countOrdered By: Ajit Pettit on 05-16-2024 Platelet mean volume (Bld) [Entitic vol] 7.9 fL Normal 6.3-10.7 [facility] Comment on above: Order Comment: Reaso n for Exam Type 2 diabetes mellitus without complication, without long- Performed By: #### C BC, CMP, LIPID #### [facility] [address] Platelets [#/volume] in Bloo d by Automated countOrdered By: Ajit Pettit on 05-16-2024 Platelets (Bld) [#/Vol] 400 10*3/uL Normal 150-450 [facility] Comment on above: Order Comment: Reaso n for Exam Type 2 diabetes mellitus without complication, without long- Performed By: #### C BC, CMP, LIPID #### [facility] [address] [place] [address] [place] Potassium [Moles/volume] in Serum or PlasmaOrdered By: Ajit Pettit on 05-16-2024 Potassium [Moles/Vol] 4.1 mmol/L Normal 3.5-5.1 [facility] Comment on above: Order Comment: Reaso n for Exam Type 2 diabetes mellitus without complication, without long- Reason for Exam Vitamin D deficiency Performed By: #### C BC, CMP, LIPID #### [facility] [address] [place] [address] [place] Protein [Mass/volume] in Ser um or PlasmaOrdered By: Ajit Pettit on 05-16-2024 Protein [Mass/Vol] 6.7 g/dL Normal 6.4-8.9 [facility] Comment on above: Order Comment: Reaso n for Exam Type 2 diabetes mellitus without complication, without long- Reason for Exam Vitamin D deficiency Performed By: #### C BC, CMP, LIPID #### [facility] [address] [id number] [facility] Serum globulin measurement b y calculation (mass/volume)Ordered By: Ajit Pettit on 05-16-2024 Globulin (S) [Mass/Vol] 2.5 g/dL Normal [facility] Comment on above: Order Comment: Reaso n for Exam Type 2 diabetes mellitus without complication, without long- Reason for Exam Vitamin D deficiency Performed By: #### C BC, CMP, LIPID #### [facility] [address] Serum or plasma albumin/glob ulin mass ratioOrdered By: Ajit Pettit on 05-16-2024 Albumin/Globulin [Mass ratio] 1.7 {ratio} Normal [facility] Comment on above: Order Comment: Reaso n for Exam Type 2 diabetes mellitus without complication, without long- Reason for Exam Vitamin D deficiency Performed By: #### C BC, CMP, LIPID #### [facility] [address] Serum or plasma anion gap de terminationOrdered By: Ajit Pettit on 05-16-2024 Anion gap [Moles/Vol] 13.1 mmol/L Normal 6.0-15.0 [facility] Comment on above: Order Comment: Reaso n for Exam Type 2 diabetes mellitus without complication, without long- Reason for Exam Vitamin D deficiency Performed By: #### C BC, CMP, LIPID #### [facility] [address] [place] [address] Serum or plasma high density lipoprotein (HDL) cholesterol measurementOrdered By: Ajit Pettit on 05-16-2024 Cholesterol in HDL [Mass/Vol] 43 mg/dL Normal 23-92 [facility] Comment on above: HDL CHOL ATP-III [...] By: #### C BC, CMP, LIPID #### [facility] [address] Serum or plasma total choles terol/high density lipoprotein (HDL) cholesterol mass ratOrdered By: Ajit Pettit on 05-16-2024 Cholesterol.total/Chol esterol in HDL [Mass ratio] 5.5 {ratio} Normal <5.0 [facility] Comment on above: Order Comment: Reaso n for Exam Type 2 diabetes mellitus without complication, without long- Reason for Exam Vitamin D deficiency Performed By: #### C BC, CMP, LIPID #### [facility] [address] [place] [address] [place] Sodium [Moles/volume] in Ser um or PlasmaOrdered By: Ajit Pettit on 05-16-2024 Sodium [Moles/Vol] 131 mmol/L Low 136-145 [facility] Comment on above: Order Comment: Reaso n for Exam Type 2 diabetes mellitus without complication, without long- Reason for Exam Vitamin D deficiency Performed By: #### C BC, CMP, LIPID #### [facility] [address] Thyroid Stim Hormone w/Rflxo n 05-16-2024 Thyroid Stim Hormone w/Rflx 1.69 u[iU]/mL Normal 0.45-5.33 [facility] Comment on above: Order Comment: Reaso n for Exam Type 2 diabetes mellitus without complication, without long- Reason for Exam Vitamin D deficiency Performed By: #### C BC, CMP, LIPID #### [facility] [address] [place] [address] Thyrotropin [Units/volume] i n Serum or PlasmaOrdered By: Ajit Pettit on 05-16-2024 TSH Qn 1.69 m[IU]/L 0.45-5.33 [facility] Triglyceride [Mass/volume] i n Serum or PlasmaOrdered By: Ajit Pettit on 05-16-2024 Triglyceride [Mass/Vol] 321 mg/dL High 0-149 [facility] Comment on above: TRIG ATP III CLASSIF ICATIONTRIG less than 150 mg/dL NormalTRIG 150-199 mg/dL Borderline highTRIG 200-500 mg/dL High TRIG greater than 500 mg/dL Very highStandard traceable to the Center for Disease Conrtrol and Prevention (CDC) test method. Urea nitrogen [Mass/volume] in Serum or PlasmaOrdered By: Ajit Pettit on 05-16-2024 Urea nitrogen [Mass/Vol] 5 mg/dL Low 7-25 [facility] Comment on above: Order Comment: Reaso n for Exam Type 2 diabetes mellitus without complication, without long- Reason for Exam Vitamin D deficiency Performed By: #### C BC, CMP, LIPID #### [facility] [address] [place] [address] [facility] Vitamin D 25 Hydroxy Totalon 05-16-2024 Vitamin D 25 Hydroxy Total 46.2 ng/mL Normal 30-100 [facility] Comment on above: Order Comment: [...] practice guideline. JCEM. 2010; 96(7):1911-. PERFORMED BY: [place] [address] PATHOLOGIST BUCKLE STAPLER RIDGE HUERTA M.D. Performed By: #### C BC, CMP, LIPID #### [facility] [address] [id number] [facility] Vitamin D+Metabolites [Mass/ volume] in Serum or PlasmaOrdered By: Ajit Pettit on 05-16-2024 Vitamin D+Metabolites [Mass/Vol] 46.2 ng/mL 30-100 [facility] Comment on above: VITAMIN D STATUS 25( [place])VITAMIN D RANGE (ng/mL) Deficient <20 Insufficient 20 to <30Sufficient 30 to 100Reference: Dominique Restrepo, Gillian NINA, et al. Evaluation,treatment, and prevention of vitamin D deficiency; an Endocrine Society clinical practice guideline. JCEM. 2010; 96(7):1911-. Glucose Glucometer (BldC) [M ass/Vol]Ordered By: Abi Sunshine on 03-16-2024 Glucose [Mass/Vol] 140 mg/dL [facility] Comment on above: Random Glucose Refer ence Range is dependent on time and content of last meal. Glucose of more than 200 mg/dL in a nonstressed, ambulatory subject supports the diagnosis of Diabetes Mellitus. Alanine aminotransferase [En zymatic activity/volume] in Serum or PlasmaOrdered By: Ajit Pettit on 01-18-2024 ALT [Catalytic activity/Vol] 8 U/L 7-52 [facility] Albumin [Mass/volume] in Ser um or Plasma by Bromocresol green (BCG) dye binding methoOrdered By: Ajit Pettit on 01-18-2024 Albumin BCG dye [Mass/Vol] 4.1 g/dL 3.5-5.7 [facility] Alkaline phosphatase [Enzyma tic activity/volume] in Serum or PlasmaOrdered By: Ajit Millanc on 01-18-2024 ALP [Catalytic activity/Vol] 58 U/L 34-104 [facility] Aspartate aminotransferase [ Enzymatic activity/volume] in Serum or PlasmaOrdered By: Ajit Millanc on 01-18-2024 AST [Catalytic activity/Vol] 9 U/L Low 13-39 [facility] Basophils Auto (Bld) [#/Vol] Ordered By: Ajit Millanc on 01-18-2024 Basophils (Bld) [#/Vol] 0.2 10*3/uL 0.0-0.2 [facility] Basophils/100 WBC Auto (Bld) Ordered By: Ajit Millanc on 01-18-2024 Basophils/100 WBC (Bld) 1.2 % . [facility] Bilirubin.total [Mass/volume ] in Serum or PlasmaOrdered By: Ajit Pettit on 01-18-2024 Bilirubin [Mass/Vol] 0.4 mg/dL 0.3-1.0 [facility] Calcium [Mass/volume] in Ser um or PlasmaOrdered By: Ajit Pettit on 01-18-2024 Calcium [Mass/Vol] 9.5 mg/dL 8.6-10.3 [facility] Carbon dioxide, total [Moles /volume] in Serum or PlasmaOrdered By: Ajit Pettit on 01-18-2024 CO2 [Moles/Vol] 22.0 mmol/L 21.0-31.0 [facility] Chloride [Moles/volume] in S alissa or PlasmaOrdered By: Ajit Lariossic on 01-18-2024 Chloride [Moles/Vol] 103 mmol/L 98-107 [facility] Cholesterol [Mass/volume] in Serum or PlasmaOrdered By: Ajit Pettit on 01-18-2024 Cholesterol [Mass/Vol] 188 mg/dL 140-200 [facility] Comment on above: Chol less than 200 m g/dl low riskChol 201-239 mg/dl borderline riskChol 240 mg/dl and greater high risk Cholesterol in LDL Calc [Mas s/Vol]Ordered By: Ajit Pettit on 01-18-2024 Cholesterol in LDL [Mass/Vol] TNP [facility] Comment on above: Test not performed Cholesterol in LDL [Mass/vol ume] in Serum or PlasmaOrdered By: Ajit Pettit on 01-18-2024 Cholesterol in LDL [Mass/Vol] 97 mg/dL 0-100 [facility] Comment on above: LDL ATP III CLASSIFI CATIONLDL less than 100 mg/dL OptimalLDL 100-129 mg/dL Near or above optimalLDL 130-159 mg/dL Borderline highLDL 160-189 mg/dL HighLDL greater than 189 mg/dL Very high Cholesterol in VLDL Calc [Ma ss/Vol]Ordered By: Ajit Pettit on 01-18-2024 Cholesterol in VLDL [Mass/Vol] 88 mg/dL [facility] Creatinine [Mass/volume] in Serum or PlasmaOrdered By: Ajit Pettit on 01-18-2024 Creatinine [Mass/Vol] 0.42 mg/dL Low 0.60-1.20 [facility] Eosinophils Auto (Bld) [#/Vo l]Ordered By: Ajit Pettit on 01-18-2024 Eosinophils (Bld) [#/Vol] 0.1 10*3/uL 0.0-0.45 [facility] Eosinophils/100 WBC Auto (Bl d)Ordered By: Ajit Pettit on 01-18-2024 Eosinophils/100 WBC (Bld) 0.9 % . [facility] Erythrocyte distribution wid th Auto (RBC) [Ratio]Ordered By: Ajit Pettit on 01-18-2024 Erythrocyte distribution width (RBC) [Ratio] 13.4 % 11.9-15.3 [facility] Globulin Calc (S) [Mass/Vol] Ordered By: Ajit Pettit on 01-18-2024 Globulin (S) [Mass/Vol] 2.5 g/dL [facility] Glucose [Mass/volume] in Ser um or PlasmaOrdered By: Ajit Pettit on 01-18-2024 Glucose [Mass/Vol] 107 mg/dL High 70-100 [facility] Comment on above: ADA recommended refe rence rangeRandom Glucose Reference Range is dependent on time and content of last meal. Glucose of more than 200 mg/dL in a nonstressed, ambulatory subject supports the diagnosis of Diabetes Mellitus. Hematocrit Auto (Bld) [Volum e fraction]Ordered By: Ajit Pettit on 01-18-2024 Hematocrit (Bld) [Volume fraction] 40.8 % 34.0-46.4 [facility] Hemoglobin [Mass/volume] in BloodOrdered By: Ajit Pettit on 01-18-2024 Hemoglobin (Bld) [Mass/Vol] 13.5 g/dL 11.8-15.4 [facility] Iron [Mass/volume] in Serum or PlasmaOrdered By: Ajit Pettit on 01-18-2024 Iron [Mass/Vol] 89 ug/dL 50-212 [facility] Iron binding capacity [Mass/ volume] in Serum or PlasmaOrdered By: Ajit Pettit on 01-18-2024 Iron binding capacity [Mass/Vol] 374 ug/dL 255-450 [facility] Iron saturation [Mass Fracti on] in Serum or PlasmaOrdered By: Ajit Pettit on 01-18-2024 Iron saturation [Mass fraction] 23.8 % 20-50 [facility] Leukocytes [#/volume] correc cherie for nucleated erythrocytes in Blood by Automated counOrdered By: Ajit Pettit on 01-18-2024 WBC corrected for nucl RBC Auto (Bld) [#/Vol] 12.4 10*3/uL High 3.8-11.6 [facility] Lymphocytes Auto (Bld) [#/Vo l]Ordered By: Ajit Pettit on 01-18-2024 Lymphocytes (Bld) [#/Vol] 3.7 10*3/uL 1.00-4.8 [facility] Lymphocytes/100 WBC Auto (Bl d)Ordered By: Ajit Pettit on 01-18-2024 Lymphocytes/100 WBC (Bld) 29.9 % . [facility] MCH Auto (RBC) [Entitic mass ]Ordered By: Ajit Pettit on 01-18-2024 MCH (RBC) [Entitic mass] 28.9 pg 24.7-34.3 [facility] MCHC Auto (RBC) [Mass/Vol]Or dered By: Ajit Pettit on 01-18-2024 MCHC (RBC) [Mass/Vol] 33.1 g/dL 32.0-35.0 [facility] MCV Auto (RBC) [Entitic vol] Ordered By: Ajit Pettit on 01-18-2024 MCV (RBC) [Entitic vol] 87.3 fL 80-100 [facility] Microalbumin [Mass/volume] i n UrineOrdered By: Ajit Pettit on 01-18-2024 Albumin DL <= 20 mg/L (U) [Mass/Vol] 0.8 mg/dL 0.0-1.8 [facility] Monocytes Auto (Bld) [#/Vol] Ordered By: Ajit Pettit on 01-18-2024 Monocytes (Bld) [#/Vol] 0.9 10*3/uL High 0.0-0.8 [facility] Monocytes/100 WBC Auto (Bld) Ordered By: Ajit Pettit on 01-18-2024 Monocytes/100 WBC (Bld) 7.1 % . [facility] Neutrophils Auto (Bld) [#/Vo l]Ordered By: Ajit Pettit on 01-18-2024 Neutrophils (Bld) [#/Vol] 7.6 10*3/uL 1.8-7.7 [facility] Neutrophils/100 WBC Auto (Bl d)Ordered By: Ajit Pettit on 01-18-2024 Neutrophils/100 WBC (Bld) 60.9 % . [facility] No Panel InformationOrdered By: Ajit Pettit on 01-18-2024 Estimated GFR (CKD-EPI) > 60.0 mL/Min [facility] Creatinine Clearance (Chem N/A [facility] Nucleated erythrocytes [Pres ence] in Blood by Automated countOrdered By: Ajit Pettit on 01-18-2024 Nucleated RBC Auto Ql (Bld) 0.2 /100{WBC} 0-0.5 [facility] Platelet mean volume Auto (B ld) [Entitic vol]Ordered By: Ajit Pettit on 01-18-2024 Platelet mean volume (Bld) [Entitic vol] 8.8 fL 6.3-10.7 [facility] Platelets Auto (Bld) [#/Vol] Ordered By: Ajit Pettit on 01-18-2024 Platelets (Bld) [#/Vol] 275 10*3/uL 150-450 [facility] Potassium [Moles/volume] in Serum or PlasmaOrdered By: Ajit Pettit on 01-18-2024 Potassium [Moles/Vol] 4.3 mmol/L 3.5-5.1 [facility] Protein [Mass/volume] in Ser um or PlasmaOrdered By: Ajit Pettit on 01-18-2024 Protein [Mass/Vol] 6.6 g/dL 6.4-8.9 [facility] RBC Auto (Bld) [#/Vol]Ordere d By: Ajit Pettit on 01-18-2024 RBC (Bld) [#/Vol] 4.67 10*6/uL 3.60-5.00 [facility] Serum or plasma albumin/glob ulin mass ratioOrdered By: Ajit Pettit on 01-18-2024 Albumin/Globulin [Mass ratio] 1.6 {ratio} [facility] Serum or plasma anion gap de terminationOrdered By: Ajit Pettit on 01-18-2024 Anion gap [Moles/Vol] 15.3 mmol/L High 6.0-15.0 [facility] Serum or plasma high density lipoprotein (HDL) cholesterol measurementOrdered By: Ajit Pettit on 01-18-2024 Cholesterol in HDL [Mass/Vol] 37 mg/dL 23-92 [facility] Comment on above: HDL CHOL ATP-III CLA SSIFICATION Cardiovascular RiskHDL > or equal to 60 mg/dL LOWHDL < 40 mg/dL HIGH Serum or plasma total choles terol/high density lipoprotein (HDL) cholesterol mass ratOrdered By: Ajit Pettit on 01-18-2024 Cholesterol.total/Chol esterol in HDL [Mass ratio] 5.1 {ratio} <5.0 [facility] Sodium [Moles/volume] in Ser um or PlasmaOrdered By: Ajit Pettit on 01-18-2024 Sodium [Moles/Vol] 136 mmol/L 136-145 [facility] Transferrin [Mass/volume] in Serum or PlasmaOrdered By: Ajit Pettit on 01-18-2024 Transferrin [Mass/Vol] 267 mg/dL 203-362 [facility] Triglyceride [Mass/volume] i n Serum or PlasmaOrdered By: Ajit Pettit on 01-18-2024 Triglyceride [Mass/Vol] 441 mg/dL High 0-149 [facility] Comment on above: If [...] 01-18-2024 Urea nitrogen [Mass/Vol] 10 mg/dL 7-25 [facility] WBC Auto (Bld) [#/Vol]Ordere d By: Ajit Pettit on 01-18-2024 WBC (Bld) [#/Vol] 12.4 10*3/uL High 3.8-11.6 [facility] Activated partial thrombopla stin time (aPTT) in platelet poor plasma by coagulation aOrdered By: Diego Noble on 10-16-2023 aPTT Coag (PPP) [Time] 28.2 s 25.1-36.5 [facility] Comment on above: A hematocrit value g reater than 55% may lead to inaccurate results in coagulation testing. Patients having hematocrit values >55% require a special collection tube for coagulation studies. Please contact the laboratory at [phone] for redraw instructions. Alanine aminotransferase [En zymatic activity/volume] in Serum or PlasmaOrdered By: Diego Noble on 10-16-2023 ALT [Catalytic activity/Vol] 10 U/L 7-52 [facility] Albumin [Mass/volume] in Ser um or Plasma by Bromocresol green (BCG) dye binding methoOrdered By: Diego Noble on 10-16-2023 Albumin BCG dye [Mass/Vol] 3.7 g/dL 3.5-5.7 [facility] Alkaline phosphatase [Enzyma tic activity/volume] in Serum or PlasmaOrdered By: Diego Noble on 10-16-2023 ALP [Catalytic activity/Vol] 84 U/L 34-104 [facility] Aspartate aminotransferase [ Enzymatic activity/volume] in Serum or PlasmaOrdered By: Diego Noble on 10-16-2023 AST [Catalytic activity/Vol] 14 U/L 13-39 [facility] Basophils Auto (Bld) [#/Vol] Ordered By: Diego Noble on 10-16-2023 Basophils (Bld) [#/Vol] 0.4 10*3/uL 0.0-0.2 [facility] Basophils/100 WBC Auto (Bld) Ordered By: Diego Noble on 10-16-2023 Basophils/100 WBC (Bld) 2.6 % . [facility] Bilirubin.total [Mass/volume ] in Serum or PlasmaOrdered By: Diego Noble on 10-16-2023 Bilirubin [Mass/Vol] 0.2 mg/dL 0.3-1.0 [facility] Calcium [Mass/volume] in Ser um or PlasmaOrdered By: Diego Noble on 10-16-2023 Calcium [Mass/Vol] 9.1 mg/dL 8.6-10.3 [facility] Carbon dioxide, total [Moles /volume] in Serum or PlasmaOrdered By: Diego Noble on 10-16-2023 CO2 [Moles/Vol] 25.9 mmol/L 21.0-31.0 [facility] Chloride [Moles/volume] in S alissa or PlasmaOrdered By: Diego Noble on 10-16-2023 Chloride [Moles/Vol] 101 mmol/L 98-107 [facility] Creatinine [Mass/volume] in Serum or PlasmaOrdered By: Diego Noble on 10-16-2023 Creatinine [Mass/Vol] 0.55 mg/dL 0.60-1.20 [facility] Eosinophils Auto (Bld) [#/Vo l]Ordered By: Diego Noble on 10-16-2023 Eosinophils (Bld) [#/Vol] 0.5 10*3/uL 0.0-0.45 [facility] Eosinophils/100 WBC Auto (Bl d)Ordered By: Diego Noble on 10-16-2023 Eosinophils/100 WBC (Bld) 3.3 % . [facility] Erythrocyte distribution wid th Auto (RBC) [Ratio]Ordered By: Diego Noble on 10-16-2023 Erythrocyte distribution width (RBC) [Ratio] 13.0 % 11.9-15.3 [facility] Globulin Calc (S) [Mass/Vol] Ordered By: Diego Noble on 10-16-2023 Globulin (S) [Mass/Vol] 2.6 g/dL [facility] Glucose [Mass/volume] in Ser um or PlasmaOrdered By: Diego Noble on 10-16-2023 Glucose [Mass/Vol] 197 mg/dL 70-100 [facility] Comment on above: ADA recommended refe rence rangeRandom Glucose Reference Range is dependent on time and content of last meal. Glucose of more than 200 mg/dL in a nonstressed, ambulatory subject supports the diagnosis of Diabetes Mellitus. Hematocrit Auto (Bld) [Volum e fraction]Ordered By: Diego Noble on 10-16-2023 Hematocrit (Bld) [Volume fraction] 34.0 % 34.0-46.4 [facility] Hemoglobin [Mass/volume] in BloodOrdered By: Diego Noble on 10-16-2023 Hemoglobin (Bld) [Mass/Vol] 11.6 g/dL 11.8-15.4 [facility] INR in Platelet poor plasma by Coagulation assayOrdered By: Diego Noble on 10-16-2023 INR Coag (PPP) [Relative time] 0.9 {INR} [facility] Comment on above: INR Therapeutic Rang [...] on 10-16-2023 Lactate [Moles/Vol] 2.1 mmol/L 0.5-2.2 [facility] Comment on above: Critical Result : Ca lled to and read back by: MACO BECK at: 10/16/2023 12:33:20 by:RG Leukocytes [#/volume] correc cherie for nucleated erythrocytes in Blood by Automated counOrdered By: Digeo Noble on 10-16-2023 WBC corrected for nucl RBC Auto (Bld) [#/Vol] 14.3 10*3/uL 3.8-11.6 [facility] Lymphocytes Auto (Bld) [#/Vo l]Ordered By: Diego Noble on 10-16-2023 Lymphocytes (Bld) [#/Vol] 4.9 10*3/uL 1.00-4.8 [facility] Lymphocytes/100 WBC Auto (Bl d)Ordered By: Diego Noble on 10-16-2023 Lymphocytes/100 WBC (Bld) 34.0 % . [facility] MCH Auto (RBC) [Entitic mass ]Ordered By: Diego Noble on 10-16-2023 MCH (RBC) [Entitic mass] 30.3 pg 24.7-34.3 [facility] MCHC Auto (RBC) [Mass/Vol]Or dered By: Diego Noble on 10-16-2023 MCHC (RBC) [Mass/Vol] 34.1 g/dL 32.0-35.0 [facility] MCV Auto (RBC) [Entitic vol] Ordered By: Diego Noble on 10-16-2023 MCV (RBC) [Entitic vol] 88.7 fL 80-100 [facility] Monocyte distribution width [Entitic volume] in Blood by AutomatedOrdered By: Diego Noble on 10-16-2023 Monocyte distribution width Auto (Bld) [Entitic vol] 20.62 % 0.00-20.00 [facility] Comment on above: For adults in ED, MD W > 20.0 may be associated with a higher risk of sepsis during the first 12 hrs of hospital admission Monocytes Auto (Bld) [#/Vol] Ordered By: Diego Noble on 10-16-2023 Monocytes (Bld) [#/Vol] 0.9 10*3/uL 0.0-0.8 [facility] Monocytes/100 WBC Auto (Bld) Ordered By: Diego Noble on 10-16-2023 Monocytes/100 WBC (Bld) 6.3 % . [facility] Neutrophils Auto (Bld) [#/Vo l]Ordered By: Diego Noble on 10-16-2023 Neutrophils (Bld) [#/Vol] 7.7 10*3/uL 1.8-7.7 [facility] Neutrophils/100 WBC Auto (Bl d)Ordered By: Diego Noble on 10-16-2023 Neutrophils/100 WBC (Bld) 53.8 % . [facility] No Panel InformationOrdered By: Diego Noble on 10-16-2023 Estimated GFR (CKD-EPI) > 60.0 mL/Min [facility] Creatinine Clearance (Chem 134.19 [facility] Nucleated erythrocytes [Pres ence] in Blood by Automated countOrdered By: Diego Noble on 10-16-2023 Nucleated RBC Auto Ql (Bld) 0.1 /100{WBC} 0-0.5 [facility] Platelet mean volume Auto (B ld) [Entitic vol]Ordered By: Diego Noble on 10-16-2023 Platelet mean volume (Bld) [Entitic vol] 6.7 fL 6.3-10.7 [facility] Platelets Auto (Bld) [#/Vol] Ordered By: Diego Noble on 10-16-2023 Platelets (Bld) [#/Vol] 454 10*3/uL 150-450 [facility] Potassium [Moles/volume] in Serum or PlasmaOrdered By: Diego Noble on 10-16-2023 Potassium [Moles/Vol] 4.3 mmol/L 3.5-5.1 [facility] Protein [Mass/volume] in Ser um or PlasmaOrdered By: Diego Noble on 10-16-2023 Protein [Mass/Vol] 6.3 g/dL 6.4-8.9 [facility] Prothrombin time (PT)Ordered By: Diego Noble on 10-16-2023 PT Coag (PPP) [Time] 9.9 s 9.0-12.9 [facility] Comment on above: A hematocrit value g reater than 55% may lead to inaccurate results in coagulation testing. Patients having hematocrit values >55% require a special collection tube for coagulation studies. Please contact the laboratory at [phone] for redraw instructions. RBC Auto (Bld) [#/Vol]Ordere d By: Diego Noble on 10-16-2023 RBC (Bld) [#/Vol] 3.84 10*6/uL 3.60-5.00 [facility] Serum or plasma albumin/glob ulin mass ratioOrdered By: Diego Noble on 10-16-2023 Albumin/Globulin [Mass ratio] 1.4 {ratio} [facility] Serum or plasma anion gap de terminationOrdered By: Diego Noble on 10-16-2023 Anion gap [Moles/Vol] 14.4 mmol/L 6.0-15.0 [facility] Sodium [Moles/volume] in Ser um or PlasmaOrdered By: Diego Noble on 10-16-2023 Sodium [Moles/Vol] 137 mmol/L 136-145 [facility] Urea nitrogen [Mass/volume] in Serum or PlasmaOrdered By: Diego Noble on 10-16-2023 Urea nitrogen [Mass/Vol] 12 mg/dL 7-25 [facility] WBC Auto (Bld) [#/Vol]Ordere d By: Diego Noble on 10-16-2023 WBC (Bld) [#/Vol] 14.3 10*3/uL 3.8-11.6 [facility] Basophils Auto (Bld) [#/Vol] Ordered By: Ilene Lopez on 10-09-2023 Basophils (Bld) [#/Vol] 0.1 10*3/uL 0.0-0.2 [facility] Basophils/100 WBC Auto (Bld) Ordered By: Ilene Lopez on 10-09-2023 Basophils/100 WBC (Bld) 0.4 % . [facility] Calcium [Mass/volume] in Ser um or PlasmaOrdered By: Ilene Lopez on 10-09-2023 Calcium [Mass/Vol] 7.9 mg/dL 8.6-10.3 [facility] Carbon dioxide, total [Moles /volume] in Serum or PlasmaOrdered By: Ilene Lopez on 10-09-2023 CO2 [Moles/Vol] 22.6 mmol/L 21.0-31.0 [facility] Chloride [Moles/volume] in S alissa or PlasmaOrdered By: Ilene Lopez on 10-09-2023 Chloride [Moles/Vol] 105 mmol/L 98-107 [facility] Clostridioides difficile tox in B tcdB gene [Presence] in Stool by NAYELY with probe deteOrdered By: BONG Velez on 10-09-2023 C. difficile toxin B tcdB gene NAYELY+probe Ql (Stl) Positive Negative [facility] Comment on above: Results calledat 161 9 on 10/09/23 Testing performed by RT-PCR Creatinine [Mass/volume] in Serum or PlasmaOrdered By: Ilene Lopez on 10-09-2023 Creatinine [Mass/Vol] 0.48 mg/dL 0.60-1.20 [facility] Eosinophils Auto (Bld) [#/Vo l]Ordered By: Ilene Lopez on 10-09-2023 Eosinophils (Bld) [#/Vol] 0.5 10*3/uL 0.0-0.45 [facility] Eosinophils/100 WBC Auto (Bl d)Ordered By: Ilnee Lopez on 10-09-2023 Eosinophils/100 WBC (Bld) 3.5 % . [facility] Erythrocyte distribution wid th Auto (RBC) [Ratio]Ordered By: Ilene Calderon on 10-09-2023 Erythrocyte distribution width (RBC) [Ratio] 13.2 % 11.9-15.3 [facility] Glucose Glucometer (BldC) [M ass/Vol]Ordered By: Salazar Cabrera on 10-09-2023 Glucose [Mass/Vol] 299 mg/dL [facility] Comment on above: Random Glucose Refer ence Range is dependent on time and content of last meal. Glucose of more than 200 mg/dL in a nonstressed, ambulatory subject supports the diagnosis of Diabetes Mellitus. Glucose [Mass/volume] in Ser um or PlasmaOrdered By: Ilene Lopez on 10-09-2023 Glucose [Mass/Vol] 143 mg/dL 70-100 [facility] Comment on above: ADA recommended refe rence rangeRandom Glucose Reference Range is dependent on time and content of last meal. Glucose of more than 200 mg/dL in a nonstressed, ambulatory subject supports the diagnosis of Diabetes Mellitus. Hematocrit Auto (Bld) [Volum e fraction]Ordered By: Ilene Lopez on 10-09-2023 Hematocrit (Bld) [Volume fraction] 30.3 % 34.0-46.4 [facility] Hemoglobin [Mass/volume] in BloodOrdered By: Ilene Lopez on 10-09-2023 Hemoglobin (Bld) [Mass/Vol] 10.3 g/dL 11.8-15.4 [facility] Leukocytes [#/volume] correc cherie for nucleated erythrocytes in Blood by Automated counOrdered By: Ilene Lopez on 10-09-2023 WBC corrected for nucl RBC Auto (Bld) [#/Vol] 13.6 10*3/uL 3.8-11.6 [facility] Lymphocytes Auto (Bld) [#/Vo l]Ordered By: Ilene Lopez on 10-09-2023 Lymphocytes (Bld) [#/Vol] 2.2 10*3/uL 1.00-4.8 [facility] Lymphocytes/100 WBC Auto (Bl d)Ordered By: Ilene Lopez on 10-09-2023 Lymphocytes/100 WBC (Bld) 16.5 % . [facility] MCH Auto (RBC) [Entitic mass ]Ordered By: Ilene Lopez on 10-09-2023 MCH (RBC) [Entitic mass] 29.9 pg 24.7-34.3 [facility] MCHC Auto (RBC) [Mass/Vol]Or dered By: Ilene Lopez on 10-09-2023 MCHC (RBC) [Mass/Vol] 34.0 g/dL 32.0-35.0 [facility] MCV Auto (RBC) [Entitic vol] Ordered By: Ilene Lopez on 10-09-2023 MCV (RBC) [Entitic vol] 88.1 fL 80-100 [facility] Monocytes Auto (Bld) [#/Vol] Ordered By: Ilene Lopez on 10-09-2023 Monocytes (Bld) [#/Vol] 1.3 10*3/uL 0.0-0.8 [facility] Monocytes/100 WBC Auto (Bld) Ordered By: Ilene Lopez on 10-09-2023 Monocytes/100 WBC (Bld) 9.5 % . [facility] Neutrophils Auto (Bld) [#/Vo l]Ordered By: Ilene Lopez on 10-09-2023 Neutrophils (Bld) [#/Vol] 9.6 10*3/uL 1.8-7.7 [facility] Neutrophils/100 WBC Auto (Bl d)Ordered By: Ilene Lopez on 10-09-2023 Neutrophils/100 WBC (Bld) 70.1 % . [facility] No Panel InformationOrdered By: Salazar Cabrera on 10-09-2023 Bedside Glucose Comment Glu2: cleaned meter [facility] No Panel InformationOrdered By: Ilene Lopez on 10-09-2023 Estimated GFR (CKD-EPI) > 60.0 mL/Min [facility] Creatinine Clearance (Chem 153.15 [facility] Nucleated erythrocytes [Pres ence] in Blood by Automated countOrdered By: Ilene Lopez on 10-09-2023 Nucleated RBC Auto Ql (Bld) 0.1 /100{WBC} 0-0.5 [facility] Platelet mean volume Auto (B ld) [Entitic vol]Ordered By: Ilene Lopez on 10-09-2023 Platelet mean volume (Bld) [Entitic vol] 7.9 fL 6.3-10.7 [facility] Platelets Auto (Bld) [#/Vol] Ordered By: Ilene Lopez on 10-09-2023 Platelets (Bld) [#/Vol] 242 10*3/uL 150-450 [facility] Potassium [Moles/volume] in Serum or PlasmaOrdered By: Ilene Lopez on 10-09-2023 Potassium [Moles/Vol] 3.4 mmol/L 3.5-5.1 [facility] RBC Auto (Bld) [#/Vol]Ordere d By: Ilene Lopez on 10-09-2023 RBC (Bld) [#/Vol] 3.44 10*6/uL 3.60-5.00 [facility] Serum or plasma anion gap de terminationOrdered By: Ilene Lopez on 10-09-2023 Anion gap [Moles/Vol] 11.8 mmol/L 6.0-15.0 [facility] Sodium [Moles/volume] in Ser um or PlasmaOrdered By: Ilene Lopez on 10-09-2023 Sodium [Moles/Vol] 136 mmol/L 136-145 [facility] Stool bacteria identificatio n by cultureOrdered By: BONG Velez on 10-09-2023 Bacteria identified Cx Nom (Stl) [facility] Urea nitrogen [Mass/volume] in Serum or PlasmaOrdered By: Ilene Lopez on 10-09-2023 Urea nitrogen [Mass/Vol] 6 mg/dL 7-25 [facility] WBC Auto (Bld) [#/Vol]Ordere d By: Ilene Lopez on 10-09-2023 WBC (Bld) [#/Vol] 13.6 10*3/uL 3.8-11.6 [facility] Alanine aminotransferase [En zymatic activity/volume] in Serum or PlasmaOrdered By: BONG Velez on 10-08-2023 ALT [Catalytic activity/Vol] 31 U/L 7-52 [facility] Albumin [Mass/volume] in Ser um or Plasma by Bromocresol green (BCG) dye binding methoOrdered By: BONG Velez on 10-08-2023 Albumin BCG dye [Mass/Vol] 3.7 g/dL 3.5-5.7 [facility] Alkaline phosphatase [Enzyma tic activity/volume] in Serum or PlasmaOrdered By: BONG Velez on 10-08-2023 ALP [Catalytic activity/Vol] 61 U/L 34-104 [facility] Aspartate aminotransferase [ Enzymatic activity/volume] in Serum or PlasmaOrdered By: BONG Velez on 10-08-2023 AST [Catalytic activity/Vol] 40 U/L 13-39 [facility] Automated erythrocytes count in urine sediment (number/area)Ordered By: BONG Velez on 10-08-2023 RBC Auto (Urine sed) [#/Area] 5-9 [HPF] 0-4 [facility] Automated leukocytes count i n urine sediment (number/area)Ordered By: BONG Velez on 10-08-2023 WBC Auto (Urine sed) [#/Area] 3-4 [HPF] 0-4 [facility] Automated urine hyaline cast s count (number/volume)Ordered By: BONG Velez on 10-08-2023 Hyaline casts Auto (U) [#/Vol] None seen [LPF] 0-1 [facility] Bilirubin Test strip Ql (U)O rdered By: BONG Velez on 10-08-2023 Bilirubin Ql (U) 1+ Negative [facility] Bilirubin.total [Mass/volume ] in Serum or PlasmaOrdered By: BONG Velez on 10-08-2023 Bilirubin [Mass/Vol] 0.6 mg/dL 0.3-1.0 [facility] Casts typing in urine sedime nt by light microscopyOrdered By: BONG Velez on 10-08-2023 Casts LM Nom (Urine sed) None seen [LPF] None Seen [facility] Color Auto (U)Ordered By: MD ALMA Velez on 10-08-2023 Color (U) [place] Yellow [facility] Globulin Calc (S) [Mass/Vol] Ordered By: BONG Velez on 10-08-2023 Globulin (S) [Mass/Vol] 2.6 g/dL [facility] Ketones Auto test strip (U) [Mass/Vol]Ordered By: BONG Velez on 10-08-2023 Ketones (U) [Mass/Vol] Trace Negative [facility] Lactate [Moles/volume] in Se rum or PlasmaOrdered By: BONG Velez on 10-08-2023 Lactate [Moles/Vol] 1.9 mmol/L 0.5-2.2 [facility] Nitrite Test strip Ql (U)Ord ered By: BONG Velez on 10-08-2023 Nitrite Ql (U) Negative Negative [facility] Protein Auto test strip (U) [Mass/Vol]Ordered By: BONG Velez on 10-08-2023 Protein (U) [Mass/Vol] 30 mg/dL Negative [facility] Protein [Mass/volume] in Ser um or PlasmaOrdered By: BONG Velez on 10-08-2023 Protein [Mass/Vol] 6.3 g/dL 6.4-8.9 [facility] Serum or plasma albumin/glob ulin mass ratioOrdered By: BONG Velez on 10-08-2023 Albumin/Globulin [Mass ratio] 1.4 {ratio} [facility] Specific gravity Auto test s trip (U) [Rel density]Ordered By: BONG Velez on 10-08-2023 Specific gravity (U) [Rel density] > 1.050 1.001-1.03 0 [facility] Squamous epithelial cells de tection in urine sediment by light microscopyOrdered By: BONG Velez on 10-08-2023 Epithelial cells.squamous LM Ql (Urine sed) 5-9 [HPF] 0-2 [facility] Urine bacteria detection by automated methodOrdered By: BONG Velez on 10-08-2023 Bacteria Auto Ql (U) None seen None Seen [facility] Urine clarity by refractomet ry automatedOrdered By: BONG Velez on 10-08-2023 Clarity Refractometry automated (U) Turbid Clear [facility] Urine glucose measurement by automated test strip (mass/volume)Ordered By: ARIELLE Velez on 10-08-2023 Glucose Auto test strip (U) [Mass/Vol] 250 mg/dL Normal [facility] Urine hemoglobin detection b y automated test stripOrdered By: BONG Velez on 10-08-2023 Hemoglobin Auto test strip Ql (U) Negative Negative [facility] Urine leukocyte esterase det ection by automated test stripOrdered By: BONG Velez on 10-08-2023 Leukocyte esterase Auto test strip Ql (U) Negative Negative [facility] Urobilinogen Auto test strip (U) [Mass/Vol]Ordered By: BONG Velez on 10-08-2023 Urobilinogen (U) [Mass/Vol] Normal mg/dL Normal [facility] pH Auto test strip (U)Ordere d By: BONG Velez on 10-08-2023 pH (U) 5.5 [pH] 5.0-9.0 [facility] Glucose Glucometer (BldC) [M ass/Vol]Ordered By: Carri Manuel on 09-28-2023 Glucose [Mass/Vol] 196 mg/dL [facility] Comment on above: Random Glucose Refer ence Range is dependent on time and content of last meal. Glucose of more than 200 mg/dL in a nonstressed, ambulatory subject supports the diagnosis of Diabetes Mellitus. HCG ( test) IA.rapi d Ql (U)Ordered By: Edna Álvarez on 09-28-2023 HCG ( test) Ql (U) Negative [facility] No Panel InformationOrdered By: Carri Manuel on 09-28-2023 Bedside Glucose Comment Glu2: cleaned meter [facility] Basophils Auto (Bld) [#/Vol] Ordered By: Carri Manuel on 09-16-2023 Basophils (Bld) [#/Vol] 0.1 10*3/uL 0.0-0.2 [facility] Basophils/100 WBC Auto (Bld) Ordered By: Carri Manuel on 09-16-2023 Basophils/100 WBC (Bld) 0.6 % . [facility] Calcium [Mass/volume] in Ser um or PlasmaOrdered By: Carri Manuel on 09-16-2023 Calcium [Mass/Vol] 9.3 mg/dL 8.6-10.3 [facility] Carbon dioxide, total [Moles /volume] in Serum or PlasmaOrdered By: Carri Manuel on 09-16-2023 CO2 [Moles/Vol] 25.5 mmol/L 21.0-31.0 [facility] Chloride [Moles/volume] in S alissa or PlasmaOrdered By: Carri Manuel on 09-16-2023 Chloride [Moles/Vol] 99 mmol/L 98-107 [facility] Creatinine [Mass/volume] in Serum or PlasmaOrdered By: Carri Manuel on 09-16-2023 Creatinine [Mass/Vol] 0.68 mg/dL 0.60-1.20 [facility] Eosinophils Auto (Bld) [#/Vo l]Ordered By: Carri Manuel on 09-16-2023 Eosinophils (Bld) [#/Vol] 0.1 10*3/uL 0.0-0.45 [facility] Eosinophils/100 WBC Auto (Bl d)Ordered By: Carri Manuel on 09-16-2023 Eosinophils/100 WBC (Bld) 0.5 % . [facility] Erythrocyte distribution wid th Auto (RBC) [Ratio]Ordered By: Carri Manuel on 09-16-2023 Erythrocyte distribution width (RBC) [Ratio] 13.3 % 11.9-15.3 [facility] Glucose [Mass/volume] in Ser um or PlasmaOrdered By: Carri Manuel on 09-16-2023 Glucose [Mass/Vol] 355 mg/dL 70-100 [facility] Comment on above: ADA recommended refe rence rangeRandom Glucose Reference Range is dependent on time and content of last meal. Glucose of more than 200 mg/dL in a nonstressed, ambulatory subject supports the diagnosis of Diabetes Mellitus. Hematocrit Auto (Bld) [Volum e fraction]Ordered By: Carri Manuel on 09-16-2023 Hematocrit (Bld) [Volume fraction] 38.3 % 34.0-46.4 [facility] Hemoglobin [Mass/volume] in BloodOrdered By: Carri Manuel on 09-16-2023 Hemoglobin (Bld) [Mass/Vol] 12.8 g/dL 11.8-15.4 [facility] Leukocytes [#/volume] correc cherie for nucleated erythrocytes in Blood by Automated counOrdered By: Carri Manuel on 09-16-2023 WBC corrected for nucl RBC Auto (Bld) [#/Vol] 12.5 10*3/uL 3.8-11.6 [facility] Lymphocytes Auto (Bld) [#/Vo l]Ordered By: Carri Manuel on 09-16-2023 Lymphocytes (Bld) [#/Vol] 3.1 10*3/uL 1.00-4.8 [facility] Lymphocytes/100 WBC Auto (Bl d)Ordered By: Carri Manuel on 09-16-2023 Lymphocytes/100 WBC (Bld) 24.9 % . [facility] MCH Auto (RBC) [Entitic mass ]Ordered By: Carri Manuel on 09-16-2023 MCH (RBC) [Entitic mass] 29.7 pg 24.7-34.3 [facility] MCHC Auto (RBC) [Mass/Vol]Or dered By: Carri Manuel on 09-16-2023 MCHC (RBC) [Mass/Vol] 33.5 g/dL 32.0-35.0 [facility] MCV Auto (RBC) [Entitic vol] Ordered By: Carri Manuel on 09-16-2023 MCV (RBC) [Entitic vol] 88.8 fL 80-100 [facility] Monocytes Auto (Bld) [#/Vol] Ordered By: Carri Manuel on 09-16-2023 Monocytes (Bld) [#/Vol] 0.9 10*3/uL 0.0-0.8 [facility] Monocytes/100 WBC Auto (Bld) Ordered By: Carri Manuel on 09-16-2023 Monocytes/100 WBC (Bld) 7.5 % . [facility] Neutrophils Auto (Bld) [#/Vo l]Ordered By: Carri Manuel on 09-16-2023 Neutrophils (Bld) [#/Vol] 8.3 10*3/uL 1.8-7.7 [facility] Neutrophils/100 WBC Auto (Bl d)Ordered By: Carri Manuel on 09-16-2023 Neutrophils/100 WBC (Bld) 66.5 % . [facility] No Panel InformationOrdered By: Carri Manuel on 09-16-2023 Estimated GFR (CKD-EPI) > 60.0 mL/Min [facility] Creatinine Clearance (Chem N/A [facility] Nucleated erythrocytes [Pres ence] in Blood by Automated countOrdered By: Carri Manuel on 09-16-2023 Nucleated RBC Auto Ql (Bld) 0.1 /100{WBC} 0-0.5 [facility] Platelet mean volume Auto (B ld) [Entitic vol]Ordered By: Carri Manuel on 09-16-2023 Platelet mean volume (Bld) [Entitic vol] 8.2 fL 6.3-10.7 [facility] Platelets Auto (Bld) [#/Vol] Ordered By: Carri Manuel on 09-16-2023 Platelets (Bld) [#/Vol] 305 10*3/uL 150-450 [facility] Potassium [Moles/volume] in Serum or PlasmaOrdered By: Carri Manuel on 09-16-2023 Potassium [Moles/Vol] 5.0 mmol/L 3.5-5.1 [facility] RBC Auto (Bld) [#/Vol]Ordere d By: Carri Manuel on 09-16-2023 RBC (Bld) [#/Vol] 4.31 10*6/uL 3.60-5.00 [facility] Serum or plasma anion gap de terminationOrdered By: Carri Manuel on 09-16-2023 Anion gap [Moles/Vol] 14.5 mmol/L 6.0-15.0 [facility] Sodium [Moles/volume] in Ser um or PlasmaOrdered By: Carri Manuel on 09-16-2023 Sodium [Moles/Vol] 134 mmol/L 136-145 [facility] Urea nitrogen [Mass/volume] in Serum or PlasmaOrdered By: Carri Manuel on 09-16-2023 Urea nitrogen [Mass/Vol] 13 mg/dL 7-25 [facility] WBC Auto (Bld) [#/Vol]Ordere d By: Carri Manuel on 09-16-2023 WBC (Bld) [#/Vol] 12.5 10*3/uL 3.8-11.6 [facility] Glucose Glucometer (BldC) [M ass/Vol]Ordered By: Carri Manuel on 07-13-2023 Glucose [Mass/Vol] 119 mg/dL [facility] Comment on above: Random Glucose Refer ence Range is dependent on time and content of last meal. Glucose of more than 200 mg/dL in a nonstressed, ambulatory subject supports the diagnosis of Diabetes Mellitus. HCG ( test) IA.rapi d Ql (U)Ordered By: Julio Monroe on 07-13-2023 HCG ( test) Ql (U) Negative [facility] No Panel InformationOrdered By: Carri Manuel on 07-13-2023 Bedside Glucose Comment Glu2: cleaned meter [facility] Basophils Auto (Bld) [#/Vol] Ordered By: Carri Manuel on 06-30-2023 Basophils (Bld) [#/Vol] 0.1 10*3/uL 0.0-0.2 [facility] Basophils/100 WBC Auto (Bld) Ordered By: Carri Manuel on 06-30-2023 Basophils/100 WBC (Bld) 0.7 % . [facility] Calcium [Mass/volume] in Ser um or PlasmaOrdered By: Carri Manuel on 06-30-2023 Calcium [Mass/Vol] 9.2 mg/dL 8.6-10.3 [facility] Carbon dioxide, total [Moles /volume] in Serum or PlasmaOrdered By: Carri Manuel on 06-30-2023 CO2 [Moles/Vol] 26.7 mmol/L 21.0-31.0 [facility] Chloride [Moles/volume] in S alissa or PlasmaOrdered By: Carri Manuel on 06-30-2023 Chloride [Moles/Vol] 100 mmol/L 98-107 [facility] Creatinine [Mass/volume] in Serum or PlasmaOrdered By: Carri Manuel on 06-30-2023 Creatinine [Mass/Vol] 0.54 mg/dL 0.60-1.20 [facility] Eosinophils Auto (Bld) [#/Vo l]Ordered By: Carri Manuel on 06-30-2023 Eosinophils (Bld) [#/Vol] 0.1 10*3/uL 0.0-0.45 [facility] Eosinophils/100 WBC Auto (Bl d)Ordered By: Carri Manuel on 06-30-2023 Eosinophils/100 WBC (Bld) 0.4 % . [facility] Erythrocyte distribution wid th Auto (RBC) [Ratio]Ordered By: Carri Manuel on 06-30-2023 Erythrocyte distribution width (RBC) [Ratio] 13.3 % 11.9-15.3 [facility] Glucose [Mass/volume] in Ser um or PlasmaOrdered By: Carri Manuel on 06-30-2023 Glucose [Mass/Vol] 134 mg/dL 70-100 [facility] Comment on above: ADA recommended refe rence rangeRandom Glucose Reference Range is dependent on time and content of last meal. Glucose of more than 200 mg/dL in a nonstressed, ambulatory subject supports the diagnosis of Diabetes Mellitus. Hematocrit Auto (Bld) [Volum e fraction]Ordered By: Carri Manuel on 06-30-2023 Hematocrit (Bld) [Volume fraction] 38.9 % 34.0-46.4 [facility] Hemoglobin [Mass/volume] in BloodOrdered By: Carri Manuel on 06-30-2023 Hemoglobin (Bld) [Mass/Vol] 13.0 g/dL 11.8-15.4 [facility] Leukocytes [#/volume] correc cherie for nucleated erythrocytes in Blood by Automated counOrdered By: Carri Manuel on 06-30-2023 WBC corrected for nucl RBC Auto (Bld) [#/Vol] 15.4 10*3/uL 3.8-11.6 [facility] Lymphocytes Auto (Bld) [#/Vo l]Ordered By: Carri Manuel on 06-30-2023 Lymphocytes (Bld) [#/Vol] 4.3 10*3/uL 1.00-4.8 [facility] Lymphocytes/100 WBC Auto (Bl d)Ordered By: Carri Manuel on 06-30-2023 Lymphocytes/100 WBC (Bld) 27.8 % . [facility] MCH Auto (RBC) [Entitic mass ]Ordered By: Carri Manuel on 06-30-2023 MCH (RBC) [Entitic mass] 30.0 pg 24.7-34.3 [facility] MCHC Auto (RBC) [Mass/Vol]Or dered By: Carri Manuel on 06-30-2023 MCHC (RBC) [Mass/Vol] 33.5 g/dL 32.0-35.0 [facility] MCV Auto (RBC) [Entitic vol] Ordered By: Carri Manuel on 06-30-2023 MCV (RBC) [Entitic vol] 89.6 fL 80-100 [facility] Monocytes Auto (Bld) [#/Vol] Ordered By: Carri Manuel on 06-30-2023 Monocytes (Bld) [#/Vol] 1.2 10*3/uL 0.0-0.8 [facility] Monocytes/100 WBC Auto (Bld) Ordered By: Carri Manuel on 06-30-2023 Monocytes/100 WBC (Bld) 7.5 % . [facility] Neutrophils Auto (Bld) [#/Vo l]Ordered By: Carri Manuel on 06-30-2023 Neutrophils (Bld) [#/Vol] 9.8 10*3/uL 1.8-7.7 [facility] Neutrophils/100 WBC Auto (Bl d)Ordered By: Carri Manuel on 06-30-2023 Neutrophils/100 WBC (Bld) 63.6 % . [facility] No Panel InformationOrdered By: Carri Manuel on 06-30-2023 Estimated GFR (CKD-EPI) > 60.0 mL/Min [facility] Creatinine Clearance (Chem N/A [facility] Nucleated erythrocytes [Pres ence] in Blood by Automated countOrdered By: Carri Manuel on 06-30-2023 Nucleated RBC Auto Ql (Bld) 0.0 /100{WBC} 0-0.5 [facility] Platelet mean volume Auto (B ld) [Entitic vol]Ordered By: Carri Manuel on 06-30-2023 Platelet mean volume (Bld) [Entitic vol] 7.9 fL 6.3-10.7 [facility] Platelets Auto (Bld) [#/Vol] Ordered By: Carri Manuel on 06-30-2023 Platelets (Bld) [#/Vol] 275 10*3/uL 150-450 [facility] Potassium [Moles/volume] in Serum or PlasmaOrdered By: Carri Manuel on 06-30-2023 Potassium [Moles/Vol] 4.3 mmol/L 3.5-5.1 [facility] RBC Auto (Bld) [#/Vol]Ordere d By: Carri Manuel on 06-30-2023 RBC (Bld) [#/Vol] 4.34 10*6/uL 3.60-5.00 [facility] Serum or plasma anion gap de terminationOrdered By: Carri Manuel on 06-30-2023 Anion gap [Moles/Vol] 14.6 mmol/L 6.0-15.0 [facility] Sodium [Moles/volume] in Ser um or PlasmaOrdered By: Carri Manuel on 06-30-2023 Sodium [Moles/Vol] 137 mmol/L 136-145 [facility] Urea nitrogen [Mass/volume] in Serum or PlasmaOrdered By: Carri Manuel on 06-30-2023 Urea nitrogen [Mass/Vol] 11 mg/dL 04-27 [facility] WBC Auto (Bld) [#/Vol]Ordere d By: Carri Manuel on 06-30-2023 WBC (Bld) [#/Vol] 15.4 10*3/uL 3.8-11.6 [facility] HCG ( test) IA.rapi d Ql (U)Ordered By: Kyler Miramontes on 05-05-2023 HCG ( test) Ql (U) Negative [facility] Alanine aminotransferase [En zymatic activity/volume] in Serum or PlasmaOrdered By: Ajit Pettit on 05-04-2023 ALT [Catalytic activity/Vol] 17 U/L [facility] Albumin [Mass/volume] in Ser um or Plasma by Bromocresol green (BCG) dye binding methoOrdered By: Ajit Pettit on 05-04-2023 Albumin BCG dye [Mass/Vol] 4.4 g/dL 3.5-5.7 [facility] Alkaline phosphatase [Enzyma tic activity/volume] in Serum or PlasmaOrdered By: Ajit Pettit on 05-04-2023 ALP [Catalytic activity/Vol] 55 U/L 34-104 [facility] Aspartate aminotransferase [ Enzymatic activity/volume] in Serum or PlasmaOrdered By: Ajit Pettit on 05-04-2023 AST [Catalytic activity/Vol] 18 U/L 13-39 [facility] Basophils Auto (Bld) [#/Vol] Ordered By: Ajit Pettit on 05-04-2023 Basophils (Bld) [#/Vol] 0.1 10*3/uL 0.0-0.2 [facility] Basophils/100 WBC Auto (Bld) Ordered By: Ajit Pettit on 05-04-2023 Basophils/100 WBC (Bld) 0.9 % . [facility] Bilirubin.total [Mass/volume ] in Serum or PlasmaOrdered By: Ajit Pettit on 05-04-2023 Bilirubin [Mass/Vol] 0.3 mg/dL 0.3-1.0 [facility] Calcium [Mass/volume] in Ser um or PlasmaOrdered By: Ajit Pettit on 05-04-2023 Calcium [Mass/Vol] 9.6 mg/dL 8.6-10.3 [facility] Carbon dioxide, total [Moles /volume] in Serum or PlasmaOrdered By: Ajit Pettit on 05-04-2023 CO2 [Moles/Vol] 28.5 mmol/L 21.0-31.0 [facility] Chloride [Moles/volume] in S alissa or PlasmaOrdered By: Ajit Pettit on 05-04-2023 Chloride [Moles/Vol] 100 mmol/L 98-107 [facility] Cholesterol [Mass/volume] in Serum or PlasmaOrdered By: Ajit Pettit on 05-04-2023 Cholesterol [Mass/Vol] 180 mg/dL 140-200 [facility] Comment on above: Chol less than 200 m g/dl low riskChol 201-239 mg/dl borderline riskChol 240 mg/dl and greater high risk Cholesterol in LDL Calc [Mas s/Vol]Ordered By: Ajit Pettit on 05-04-2023 Cholesterol in LDL [Mass/Vol] 81 mg/dL 0-100 [facility] Comment on above: LDL ATP III CLASSIFI CATIONLDL less than 100 mg/dL OptimalLDL 100-129 mg/dL Near or above optimalLDL 130-159 mg/dL Borderline highLDL 160-189 mg/dL HighLDL greater than 189 mg/dL Very high Cholesterol in VLDL Calc [Ma ss/Vol]Ordered By: Ajit Pettit on 05-04-2023 Cholesterol in VLDL [Mass/Vol] 46 mg/dL [facility] Creatinine [Mass/volume] in Serum or PlasmaOrdered By: Ajit Pettit on 05-04-2023 Creatinine [Mass/Vol] 0.65 mg/dL 0.60-1.20 [facility] Eosinophils Auto (Bld) [#/Vo l]Ordered By: Ajit Pettit on 05-04-2023 Eosinophils (Bld) [#/Vol] 0.1 10*3/uL 0.0-0.45 [facility] Eosinophils/100 WBC Auto (Bl d)Ordered By: Ajit Pettit on 05-04-2023 Eosinophils/100 WBC (Bld) 0.5 % . [facility] Erythrocyte distribution wid th Auto (RBC) [Ratio]Ordered By: Ajit Pettit on 05-04-2023 Erythrocyte distribution width (RBC) [Ratio] 13.4 % 11.9-15.3 [facility] Ferritin [Mass/volume] in Se rum or PlasmaOrdered By: Ajit Pettit on 05-04-2023 Ferritin [Mass/Vol] 90.4 ng/mL 11.0-306.8 [facility] Globulin Calc (S) [Mass/Vol] Ordered By: Ajit Pettit on 05-04-2023 Globulin (S) [Mass/Vol] 2.3 g/dL [facility] Glucose [Mass/volume] in Ser um or PlasmaOrdered By: Ajit Pettit on 05-04-2023 Glucose [Mass/Vol] 124 mg/dL 70-100 [facility] Comment on above: ADA recommended refe rence rangeRandom Glucose Reference Range is dependent on time and content of last meal. Glucose of more than 200 mg/dL in a nonstressed, ambulatory subject supports the diagnosis of Diabetes Mellitus. Hematocrit Auto (Bld) [Volum e fraction]Ordered By: Ajit Pettit on 05-04-2023 Hematocrit (Bld) [Volume fraction] 41.7 % 34.0-46.4 [facility] Hemoglobin [Mass/volume] in BloodOrdered By: Ajit Pettit on 05-04-2023 Hemoglobin (Bld) [Mass/Vol] 14.0 g/dL 11.8-15.4 [facility] Iron [Mass/volume] in Serum or PlasmaOrdered By: Ajit Pettit on 05-04-2023 Iron [Mass/Vol] 95 ug/dL 50-212 [facility] Iron binding capacity [Mass/ volume] in Serum or PlasmaOrdered By: Ajit Pettit on 05-04-2023 Iron binding capacity [Mass/Vol] 476 ug/dL 255-450 [facility] Iron saturation [Mass Fracti on] in Serum or PlasmaOrdered By: Ajit Pettit on 05-04-2023 Iron saturation [Mass fraction] 20.0 % 20-50 [facility] Leukocytes [#/volume] correc cherie for nucleated erythrocytes in Blood by Automated counOrdered By: Ajit Pettit on 05-04-2023 WBC corrected for nucl RBC Auto (Bld) [#/Vol] 14.4 10*3/uL 3.8-11.6 [facility] Lymphocytes Auto (Bld) [#/Vo l]Ordered By: Ajit Pettit on 05-04-2023 Lymphocytes (Bld) [#/Vol] 3.2 10*3/uL 1.00-4.8 [facility] Lymphocytes/100 WBC Auto (Bl d)Ordered By: Ajit Pettit on 05-04-2023 Lymphocytes/100 WBC (Bld) 22.3 % . [facility] MCH Auto (RBC) [Entitic mass ]Ordered By: Ajit Pettit on 05-04-2023 MCH (RBC) [Entitic mass] 29.8 pg 24.7-34.3 [facility] MCHC Auto (RBC) [Mass/Vol]Or dered By: Ajit Pettit on 05-04-2023 MCHC (RBC) [Mass/Vol] 33.5 g/dL 32.0-35.0 [facility] MCV Auto (RBC) [Entitic vol] Ordered By: Ajit Pettit on 05-04-2023 MCV (RBC) [Entitic vol] 89.1 fL 80-100 [facility] Monocytes Auto (Bld) [#/Vol] Ordered By: Ajit Pettit on 05-04-2023 Monocytes (Bld) [#/Vol] 0.9 10*3/uL 0.0-0.8 [facility] Monocytes/100 WBC Auto (Bld) Ordered By: Ajit Pettit on 05-04-2023 Monocytes/100 WBC (Bld) 6.3 % . [facility] Neutrophils Auto (Bld) [#/Vo l]Ordered By: Ajit Pettit on 05-04-2023 Neutrophils (Bld) [#/Vol] 10.1 10*3/uL 1.8-7.7 [facility] Neutrophils/100 WBC Auto (Bl d)Ordered By: Ajit Pettit on 05-04-2023 Neutrophils/100 WBC (Bld) 70.0 % . [facility] No Panel InformationOrdered By: Ajit Pettit on 05-04-2023 Estimated GFR (CKD-EPI) > 60.0 mL/Min [facility] Creatinine Clearance (Chem N/A [facility] Nucleated erythrocytes [Pres ence] in Blood by Automated countOrdered By: Ajit Pettit on 05-04-2023 Nucleated RBC Auto Ql (Bld) 0.1 /100{WBC} 0-0.5 [facility] Platelet mean volume Auto (B ld) [Entitic vol]Ordered By: Ajit Pettit on 05-04-2023 Platelet mean volume (Bld) [Entitic vol] 8.4 fL 6.3-10.7 [facility] Platelets Auto (Bld) [#/Vol] Ordered By: Ajit Pettit on 05-04-2023 Platelets (Bld) [#/Vol] 328 10*3/uL 150-450 [facility] Potassium [Moles/volume] in Serum or PlasmaOrdered By: Ajit Pettit on 05-04-2023 Potassium [Moles/Vol] 5.3 mmol/L 3.5-5.1 [facility] Protein [Mass/volume] in Ser um or PlasmaOrdered By: Ajit Pettit on 05-04-2023 Protein [Mass/Vol] 6.7 g/dL 6.4-8.9 [facility] RBC Auto (Bld) [#/Vol]Ordere d By: Ajit Pettit on 05-04-2023 RBC (Bld) [#/Vol] 4.68 10*6/uL 3.60-5.00 [facility] Serum or plasma albumin/glob ulin mass ratioOrdered By: Ajit Pettit on 05-04-2023 Albumin/Globulin [Mass ratio] 1.9 {ratio} [facility] Serum or plasma anion gap de terminationOrdered By: Ajit Pettit on 05-04-2023 Anion gap [Moles/Vol] 11.8 mmol/L 6.0-15.0 [facility] Serum or plasma high density lipoprotein (HDL) cholesterol measurementOrdered By: Ajit Pettit on 05-04-2023 Cholesterol in HDL [Mass/Vol] 52 mg/dL 23-92 [facility] Comment on above: HDL CHOL ATP-III CLA SSIFICATION Cardiovascular RiskHDL > or equal to 60 mg/dL LOWHDL < 40 mg/dL HIGH Serum or plasma total choles terol/high density lipoprotein (HDL) cholesterol mass ratOrdered By: Ajit Pettit on 05-04-2023 Cholesterol.total/Chol esterol in HDL [Mass ratio] 3.5 {ratio} <5.0 [facility] Sodium [Moles/volume] in Ser um or PlasmaOrdered By: Ajit Pettit on 05-04-2023 Sodium [Moles/Vol] 135 mmol/L 136-145 [facility] Thyrotropin [Units/volume] i n Serum or PlasmaOrdered By: Ajit Pettit on 05-04-2023 TSH Qn 1.97 m[IU]/L 0.45-5.33 [facility] Transferrin [Mass/volume] in Serum or PlasmaOrdered By: Ajit Pettit on 05-04-2023 Transferrin [Mass/Vol] 340 mg/dL 203-362 [facility] Triglyceride [Mass/volume] i n Serum or PlasmaOrdered By: Ajit Pettit on 05-04-2023 Triglyceride [Mass/Vol] 233 mg/dL 0-149 [facility] Comment on above: TRIG ATP III CLASSIF ICATIONTRIG less than 150 mg/dL NormalTRIG 150-199 mg/dL Borderline highTRIG 200-500 mg/dL High TRIG greater than 500 mg/dL Very highStandard traceable to the Center for Disease Conrtrol and Prevention (CDC) test method. Urea nitrogen [Mass/volume] in Serum or PlasmaOrdered By: Ajit Pettit on 05-04-2023 Urea nitrogen [Mass/Vol] 9 mg/dL 7-25 [facility] Urine culture routineOrdered By: Ajit Pettit on 05-04-2023 Bacteria identified Cx Nom (U) Strep. agalactiae Grp B [facility] WBC Auto (Bld) [#/Vol]Ordere d By: Ajit Pettit on 05-04-2023 WBC (Bld) [#/Vol] 14.4 10*3/uL 3.8-11.6 [facility] HCG ( test) IA.rapi d Ql (U)Ordered By: Kyler Miramontes on 04-14-2023 HCG ( test) Ql (U) Negative [facility] CBC AUTO DIFFon 02-15-2023 BASO # 0.1 103/ul Normal 0.0-0.1 [facility] Comment on above: Performed By: #### C BC #### [facility] [address] [address] [address] Vito Grimm Basophils/100 WBC (Bld) 0.5 % Normal 0.2-2.0 [facility] Comment on above: Performed By: #### C BC #### [facility] [address] [address] [address] Vito Grimm EO # 0.1 103/ul Normal 0.0-0.7 [facility] Comment on above: Performed By: #### C BC #### [facility] [address] [place] [address] Dr. Vito Grimm Eosinophils/100 WBC (Bld) 0.8 % Critically low 0.9-7.0 [facility] Comment on above: Performed By: #### C BC #### [facility] [address] [place] [address] Dr. Vito Grimm Erythrocyte distribution width (RBC) [Ratio] 13.1 % Normal 11.0-15.0 [facility] Comment on above: Performed By: #### C BC #### [facility] [address] [place] [address] Dr. Vito Grimm Hematocrit (Bld) [Volume fraction] 41.2 % Normal 36.0-48.0 [facility] Comment on above: Performed By: #### C BC #### [facility] [address] [place] [address] Dr. Vito Grimm Hemoglobin (Bld) [Mass/Vol] 13.4 g/dL Normal 12.0-16.0 [facility] Comment on above: Performed By: #### C BC #### [facility] [address] [place] [address] Dr. Vito Grimm IG # 0.05 10e3/ul Critically high 0.00-0.03 [facility] Comment on above: Performed By: #### C BC #### [facility] [address] [place] [address] Dr. Vito Grimm IG % 0.4 % Normal 0.0-0.5 [facility] Comment on above: Performed By: #### C BC #### [facility] [address] [place] [address] Dr. Vito Grimm LYMPH # 4.8 103/ul Critically high 1.2-3.8 [facility] Comment on above: Performed By: #### C BC #### [facility] [address] [place] [address] Dr. Vito Grimm Lymphocytes/100 WBC (Bld) 38.8 % Normal 20.5-60.0 [facility] Comment on above: Performed By: #### C BC #### [facility] [address] [place] [address] Dr. Vito Grimm MANUAL DIFF REQ NO Normal [facility] Comment on above: Performed By: #### C BC #### [facility] [address] [place] [address] Dr. Vito Grimm MCH (RBC) [Entitic mass] 29.9 pg Normal 26.7-34.0 [facility] Comment on above: Performed By: #### C BC #### [facility] [address] [place] [address] Dr. Vito Grimm MCHC (RBC) [Mass/Vol] 32.5 g/dL Normal 29.9-35.2 [facility] Comment on above: Performed By: #### C BC #### [facility] [address] [place] [address] Dr. Vito Grimm MCV (RBC) [Entitic vol] 92.0 fL Normal 81.0-99.0 [facility] Comment on above: Performed By: #### C BC #### [facility] [address] [place] [address] Dr. Vito Grimm MONO # 0.9 103/ul Critically high 0.3-0.8 [facility] Comment on above: Performed By: #### C BC #### [facility] [address] [place] [address] Dr. Vito Grimm Monocytes/100 WBC (Bld) 7.4 % Normal 1.7-12.0 [facility] Comment on above: Performed By: #### C BC #### [facility] [address] [place] [address] Dr. Vito Grimm NEUT # 6.5 103/ul Normal 1.4-6.5 [facility] Comment on above: Performed By: #### C BC #### [facility] [address] [place] [address] Dr. Vito Grimm Neutrophils/100 WBC (Bld) 52.1 % Normal 43.0-75.0 [facility] Comment on above: Performed By: #### C BC #### [facility] [address] [place] [address] Dr. Vito Grimm Platelet mean volume (Bld) [Entitic vol] 10.0 fL Normal 9.5-13.5 [facility] Comment on above: Performed By: #### C BC #### [facility] [address] [place] [address] Dr. Vito Grimm PLT 298 103/ul Normal 150-450 [facility] Comment on above: Performed By: #### C BC #### [facility] [address] [place] [address] Dr. Vito Grimm RBC 4.48 106/ul Normal 4.20-5.40 [facility] Comment on above: Performed By: #### C BC #### [facility] [address] [place] [address] Dr. Vito Grimm WBC 12.4 103/ul Critically high 4.0-11.0 [facility] Comment on above: Performed By: #### C BC #### [facility] [address] [place] [address] Dr. Vito Grimm DEPAKENE/ VALPROIC ACIDon DEPAKENE 49.4 ug/ml Critically low 50.0-100.0 [facility] Comment on above: Performed By: #### C MP, HSTROPN #### [facility] [address] [place] [address] Dr. Vito Grimm LACTATE/LACTIC ACIDon 2022 Lactate [Moles/Vol] 2.7 mmol/L Critically high 0.4-2.0 [facility] Comment on above: Performed By: #### L ACT #### [facility] [address] [place] [address] Dr. Vito Grimm PROF CHEM 8 (BAS METB)on Anion gap [Moles/Vol] 17.6 mmol/L Normal [facility] Comment on above: Performed By: #### B MP #### [facility] [address] [place] [address] Dr. Vito Grimm Calcium [Mass/Vol] 8.7 mg/dL Normal 8.5-10.1 [facility] Comment on above: Performed By: #### B MP #### [facility] [address] [place] [address] Dr. Vito Grimm Chloride [Moles/Vol] 99 mmol/L Normal 98-107 [facility] Comment on above: Performed By: #### B MP #### [facility] [address] [address] [address] Vito Grimm CO2 [Moles/Vol] 23.5 mmol/L Normal 21.0-32.0 [facility] Comment on above: Performed By: #### B MP #### [facility] [address] [place] [address] Dr. Vito Grimm Creatinine [Mass/Vol] 0.75 mg/dL Normal 0.55-1.02 [facility] Comment on above: Performed By: #### B MP #### [facility] [address] [place] [address] Dr. Vito Grimm EGFR-AF MONTSERRATIAN >60 Normal >=60 [facility] Comment on above: Performed By: #### B MP #### [facility] [address] [place] [address] Dr. Vito Grimm EGFR-NON AF MONTSERRATIAN >60 Normal >=60 [facility] Comment on above: Performed By: #### B MP #### [facility] [address] [place] [address] Dr. Vito Grimm Glucose [Mass/Vol] 273 mg/dL Critically high 74-106 [facility] Comment on above: Performed By: #### B MP #### [facility] [address] [address] [address] Vito Grimm Potassium [Moles/Vol] 4.1 mmol/L Normal 3.5-5.1 [facility] Comment on above: Performed By: #### B MP #### [facility] [address] [place] [address] Dr. Vito Grimm Sodium [Moles/Vol] 136 mmol/L Normal 136-145 [facility] Comment on above: Performed By: #### B MP #### [facility] [address] [place], [place] [address] Dr. Vito Grimm Urea nitrogen [Mass/Vol] 6.0 mg/dL Critically low 7.0-18.0 [facility] Comment on above: Performed By: #### B MP #### [facility] [address] [place], [place] [address] Dr. Vito Grimm Urea nitrogen/Creatinine [Mass ratio] 8.0 mg/mg Normal [facility] Comment on above: Performed By: #### B MP #### [facility] [address] [place], [place] [address] Dr. Vito Grimm Alanine aminotransferase [En zymatic activity/volume] in Serum or PlasmaOrdered By: Ajit Pettit on 02-09-2023 ALT [Catalytic activity/Vol] 29 U/L 7-52 [facility] Albumin [Mass/volume] in Ser um or Plasma by Bromocresol green (BCG) dye binding methoOrdered By: Ajit Pettit on 02-09-2023 Albumin BCG dye [Mass/Vol] 4.4 g/dL 3.5-5.7 [facility] Alkaline phosphatase [Enzyma tic activity/volume] in Serum or PlasmaOrdered By: Ajit Pettit on 02-09-2023 ALP [Catalytic activity/Vol] 72 U/L 34-104 [facility] Aspartate aminotransferase [ Enzymatic activity/volume] in Serum or PlasmaOrdered By: Ajit Pettit on 02-09-2023 AST [Catalytic activity/Vol] 27 U/L 13-39 [facility] Basophils Auto (Bld) [#/Vol] Ordered By: Ajit Pettit on 02-09-2023 Basophils (Bld) [#/Vol] 0.1 10*3/uL 0.0-0.2 [facility] Basophils/100 WBC Auto (Bld) Ordered By: Ajit Pettit on 02-09-2023 Basophils/100 WBC (Bld) 0.6 % . [facility] Bilirubin.total [Mass/volume ] in Serum or PlasmaOrdered By: Ajit Pettit on 02-09-2023 Bilirubin [Mass/Vol] 0.3 mg/dL 0.3-1.0 [facility] Calcium [Mass/volume] in Ser um or PlasmaOrdered By: Ajit Pettit on 02-09-2023 Calcium [Mass/Vol] 9.3 mg/dL 8.6-10.3 [facility] Carbon dioxide, total [Moles /volume] in Serum or PlasmaOrdered By: Ajit Pettit on 02-09-2023 CO2 [Moles/Vol] 23.8 mmol/L 21.0-31.0 [facility] Chloride [Moles/volume] in S alissa or PlasmaOrdered By: Ajit Pettit on 02-09-2023 Chloride [Moles/Vol] 101 mmol/L 98-107 [facility] Cholesterol [Mass/volume] in Serum or PlasmaOrdered By: Ajit Pettit on 02-09-2023 Cholesterol [Mass/Vol] 166 mg/dL 140-200 [facility] Comment on above: Chol less than 200 m g/dl low riskChol 201-239 mg/dl borderline riskChol 240 mg/dl and greater high risk Cholesterol in LDL Calc [Mas s/Vol]Ordered By: Ajit Pettit on 02-09-2023 Cholesterol in LDL [Mass/Vol] TNP [facility] Comment on above: Test not performed Cholesterol in LDL [Mass/vol ume] in Serum or PlasmaOrdered By: Ajit Pettit on 02-09-2023 Cholesterol in LDL [Mass/Vol] 61 mg/dL 0-100 [facility] Comment on above: LDL ATP III CLASSIFI CATIONLDL less than 100 mg/dL OptimalLDL 100-129 mg/dL Near or above optimalLDL 130-159 mg/dL Borderline highLDL 160-189 mg/dL HighLDL greater than 189 mg/dL Very high Cholesterol in VLDL Calc [Ma ss/Vol]Ordered By: Ajit Pettit on 02-09-2023 Cholesterol in VLDL [Mass/Vol] 97 mg/dL [facility] Creatinine [Mass/volume] in Serum or PlasmaOrdered By: Ajit Pettit on 02-09-2023 Creatinine [Mass/Vol] 0.75 mg/dL 0.60-1.20 [facility] Eosinophils Auto (Bld) [#/Vo l]Ordered By: Ajit Pettit on 02-09-2023 Eosinophils (Bld) [#/Vol] 0.1 10*3/uL 0.0-0.45 [facility] Eosinophils/100 WBC Auto (Bl d)Ordered By: Ajit Pettit on 02-09-2023 Eosinophils/100 WBC (Bld) 0.7 % . [facility] Erythrocyte distribution wid th Auto (RBC) [Ratio]Ordered By: Ajit Pettit on 02-09-2023 Erythrocyte distribution width (RBC) [Ratio] 13.1 % 11.9-15.3 [facility] Globulin Calc (S) [Mass/Vol] Ordered By: Ajit Pettit on 02-09-2023 Globulin (S) [Mass/Vol] 2.3 g/dL [facility] Glucose [Mass/volume] in Ser um or PlasmaOrdered By: jAit Pettit on 02-09-2023 Glucose [Mass/Vol] 286 mg/dL 70-100 [facility] Comment on above: ADA recommended refe rence rangeRandom Glucose Reference Range is dependent on time and content of last meal. Glucose of more than 200 mg/dL in a nonstressed, ambulatory subject supports the diagnosis of Diabetes Mellitus. Hematocrit Auto (Bld) [Volum e fraction]Ordered By: Ajit Pettit on 02-09-2023 Hematocrit (Bld) [Volume fraction] 39.7 % 34.0-46.4 [facility] Hemoglobin [Mass/volume] in BloodOrdered By: Ajit Pettit on 02-09-2023 Hemoglobin (Bld) [Mass/Vol] 13.1 g/dL 11.8-15.4 [facility] Leukocytes [#/volume] correc cherie for nucleated erythrocytes in Blood by Automated counOrdered By: Ajit Pettit on 02-09-2023 WBC corrected for nucl RBC Auto (Bld) [#/Vol] 13.2 10*3/uL 3.8-11.6 [facility] Lymphocytes Auto (Bld) [#/Vo l]Ordered By: Ajit Pettit on 02-09-2023 Lymphocytes (Bld) [#/Vol] 3.6 10*3/uL 1.00-4.8 [facility] Lymphocytes/100 WBC Auto (Bl d)Ordered By: Ajit Pettit on 02-09-2023 Lymphocytes/100 WBC (Bld) 27.3 % . [facility] MCH Auto (RBC) [Entitic mass ]Ordered By: Ajit Pettit on 02-09-2023 MCH (RBC) [Entitic mass] 29.5 pg 24.7-34.3 [facility] MCHC Auto (RBC) [Mass/Vol]Or dered By: Ajit Pettit on 02-09-2023 MCHC (RBC) [Mass/Vol] 33.1 g/dL 32.0-35.0 [facility] MCV Auto (RBC) [Entitic vol] Ordered By: Ajit Pettit on 02-09-2023 MCV (RBC) [Entitic vol] 89.3 fL 80-100 [facility] Monocytes Auto (Bld) [#/Vol] Ordered By: Ajit Pettit on 02-09-2023 Monocytes (Bld) [#/Vol] 0.9 10*3/uL 0.0-0.8 [facility] Monocytes/100 WBC Auto (Bld) Ordered By: Ajit Pettit on 02-09-2023 Monocytes/100 WBC (Bld) 7.0 % . [facility] Neutrophils Auto (Bld) [#/Vo l]Ordered By: Ajit Pettit on 02-09-2023 Neutrophils (Bld) [#/Vol] 8.5 10*3/uL 1.8-7.7 [facility] Neutrophils/100 WBC Auto (Bl d)Ordered By: Ajit Pettit on 02-09-2023 Neutrophils/100 WBC (Bld) 64.4 % . [facility] No Panel InformationOrdered By: Ajit Pettit on 02-09-2023 Estimated GFR (CKD-EPI) > 60.0 mL/Min [facility] Creatinine Clearance (Chem N/A [facility] Nucleated erythrocytes [Pres ence] in Blood by Automated countOrdered By: Ajit Pettit on 02-09-2023 Nucleated RBC Auto Ql (Bld) 0.0 /100{WBC} 0-0.5 [facility] Platelet mean volume Auto (B ld) [Entitic vol]Ordered By: Ajit Pettit on 02-09-2023 Platelet mean volume (Bld) [Entitic vol] 8.8 fL 6.3-10.7 [facility] Platelets Auto (Bld) [#/Vol] Ordered By: Ajit Pettit on 02-09-2023 Platelets (Bld) [#/Vol] 295 10*3/uL 150-450 [facility] Potassium [Moles/volume] in Serum or PlasmaOrdered By: Ajit Pettit on 02-09-2023 Potassium [Moles/Vol] 4.5 mmol/L 3.5-5.1 [facility] Protein [Mass/volume] in Ser um or PlasmaOrdered By: Ajit Pettit on 02-09-2023 Protein [Mass/Vol] 6.7 g/dL 6.4-8.9 [facility] RBC Auto (Bld) [#/Vol]Ordere d By: Ajit Pettit on 02-09-2023 RBC (Bld) [#/Vol] 4.44 10*6/uL 3.60-5.00 [facility] Serum or plasma albumin/glob ulin mass ratioOrdered By: Ajit Pettit on 02-09-2023 Albumin/Globulin [Mass ratio] 1.9 {ratio} [facility] Serum or plasma anion gap de terminationOrdered By: Ajit Pettit on 02-09-2023 Anion gap [Moles/Vol] 15.7 mmol/L 6.0-15.0 [facility] Serum or plasma high density lipoprotein (HDL) cholesterol measurementOrdered By: Ajit Pettit on 02-09-2023 Cholesterol in HDL [Mass/Vol] 41 mg/dL 35-85 [facility] Comment on above: HDL CHOL ATP-III CLA SSIFICATION Cardiovascular RiskHDL > or equal to 60 mg/dL LOWHDL < 40 mg/dL HIGH Serum or plasma total choles terol/high density lipoprotein (HDL) cholesterol mass ratOrdered By: Ajit Pettit on 02-09-2023 Cholesterol.total/Chol esterol in HDL [Mass ratio] 4.0 {ratio} <5.0 [facility] Sodium [Moles/volume] in Ser um or PlasmaOrdered By: Ajit Pettit on 02-09-2023 Sodium [Moles/Vol] 136 mmol/L 136-145 [facility] Thyrotropin [Units/volume] i n Serum or PlasmaOrdered By: Ajit Pettit on 02-09-2023 TSH Qn 2.98 m[IU]/L 0.45-5.33 [facility] Triglyceride [Mass/volume] i n Serum or PlasmaOrdered By: Ajit Pettit on 02-09-2023 Triglyceride [Mass/Vol] 485 mg/dL 0-149 [facility] Comment on above: If [...] 02-09-2023 Urea nitrogen [Mass/Vol] 10 mg/dL 7-25 [facility] Urine culture routineOrdered By: Ajit Pettit on 02-09-2023 Bacteria identified Cx Nom (U) 2 Days [facility] WBC Auto (Bld) [#/Vol]Ordere d By: Ajit Pettit on 02-09-2023 WBC (Bld) [#/Vol] 13.2 10*3/uL 3.8-11.6 [facility] ACETONE SERUMon 01-29-2023 ACETONE Negative Normal NEGATIVE [facility] Comment on above: Performed By: #### A CETON #### [facility] [address] [address] [address] Vito Grimm CBC AUTO DIFFon 01-29-2023 BASO # 0.1 103/ul Normal 0.0-0.1 [facility] Comment on above: Performed By: #### C BC #### [facility] [address] [place] [address] Dr. Vito Grimm Basophils/100 WBC (Bld) 0.5 % Normal 0.2-2.0 [facility] Comment on above: Performed By: #### C BC #### [facility] [address] [place] [address] Dr. Vito Grimm EO # 0.1 103/ul Normal 0.0-0.7 [facility] Comment on above: Performed By: #### C BC #### [facility] [address] [place] [address] Dr. Vito Grimm Eosinophils/100 WBC (Bld) 0.7 % Critically low 0.9-7.0 [facility] Comment on above: Performed By: #### C BC #### [facility] [address] [place] [address] Dr. Vito Grimm Erythrocyte distribution width (RBC) [Ratio] 12.9 % Normal 11.0-15.0 [facility] Comment on above: Performed By: #### C BC #### [facility] [address] [place] [address] Dr. Vito Grimm Hematocrit (Bld) [Volume fraction] 39.0 % Normal 36.0-48.0 [facility] Comment on above: Performed By: #### C BC #### [facility] [address] [place] [address] Dr. Vito Grimm Hemoglobin (Bld) [Mass/Vol] 13.1 g/dL Normal 12.0-16.0 [facility] Comment on above: Performed By: #### C BC #### [facility] [address] [place] [address] Dr. Vito Grimm IG # 0.11 10e3/ul Critically high 0.00-0.03 [facility] Comment on above: Performed By: #### C BC #### [facility] [address] [place] [address] Dr. Vito Grimm IG % 0.8 % Critically high 0.0-0.5 [facility] Comment on above: Performed By: #### C BC #### [facility] [address] [place] [address] Dr. Vito Grimm LYMPH # 4.6 103/ul Critically high 1.2-3.8 [facility] Comment on above: Performed By: #### C BC #### [facility] [address] [place] [address] Dr. Vito Grimm Lymphocytes/100 WBC (Bld) 34.4 % Normal 20.5-60.0 [facility] Comment on above: Performed By: #### C BC #### [facility] [address] [place] [address] Dr. Vito Grimm MANUAL DIFF REQ NO Normal [facility] Comment on above: Performed By: #### C BC #### [facility] [address] [place] [address] Dr. Vito Grimm MCH (RBC) [Entitic mass] 29.9 pg Normal 26.7-34.0 [facility] Comment on above: Performed By: #### C BC #### [facility] [address] [place] [address] Dr. Vito Grimm MCHC (RBC) [Mass/Vol] 33.6 g/dL Normal 29.9-35.2 [facility] Comment on above: Performed By: #### C BC #### [facility] [address] [place] [address] Dr. Vito Grimm MCV (RBC) [Entitic vol] 89.0 fL Normal 81.0-99.0 [facility] Comment on above: Performed By: #### C BC #### [facility] [address] [place] [address] Dr. Vito Grimm MONO # 1.0 103/ul Critically high 0.3-0.8 [facility] Comment on above: Performed By: #### C BC #### [facility] [address] [place] [address] Dr. Vito Grimm Monocytes/100 WBC (Bld) 7.3 % Normal 1.7-12.0 [facility] Comment on above: Performed By: #### C BC #### [facility] [address] [place] [address] Dr. Vito Grimm NEUT # 7.5 103/ul Critically high 1.4-6.5 [facility] Comment on above: Performed By: #### C BC #### [facility] [address] [place] [address] Dr. Vito Grimm Neutrophils/100 WBC (Bld) 56.3 % Normal 43.0-75.0 [facility] Comment on above: Performed By: #### C BC #### [facility] [address] [place] [address] Dr. Vito Grimm Platelet mean volume (Bld) [Entitic vol] 9.6 fL Normal 9.5-13.5 [facility] Comment on above: Performed By: #### C BC #### [facility] [address] [place] [address] Dr. Vito Grimm PLT 272 103/ul Normal 150-450 [facility] Comment on above: Performed By: #### C BC #### [facility] [address] [place] [address] Dr. Vito Grimm RBC 4.38 106/ul Normal 4.20-5.40 [facility] Comment on above: Performed By: #### C BC #### [facility] [address] [place] [address] Dr. Vito Grimm WBC 13.4 103/ul Critically high 4.0-11.0 [facility] Comment on above: Performed By: #### C BC #### [facility] [address] [place] [address] Dr. Vito Grimm ER URINE PROFILEon 3 Bilirubin Ql (U) Negative Normal NEGATIVE [facility] Comment on above: Performed By: #### E RUR #### [facility] [address] [place] [address] Dr. Vito Grimm Clarity (U) SL CLOUDY Abnormal CLEAR [facility] Comment on above: Performed By: #### E RUR #### [facility] [address] [place] [address] Dr. Vito Grimm Color (U) LT. YELLOW Normal YELLOW [facility] Comment on above: Performed By: #### E RUR #### [facility] [address] [place] [address] Dr. Vito ELIZABETH A micrscopic examina tion will be performed if indicated. Normal [facility] Comment on above: Performed By: #### E RUR #### [facility] [address] [place] [address] Dr. Vito Grimm Glucose Ql (U) >1000 Abnormal NEGATIVE [facility] Comment on above: Performed By: #### E RUR #### [facility] [address] [place] [address] Dr. Vito Grimm Hemoglobin Ql (U) Negative Normal NEGATIVE [facility] Comment on above: Performed By: #### E RUR #### [facility] [address] [place] [address] Dr. Vito Grimm Ketones Ql (U) Negative Normal NEGATIVE [facility] Comment on above: Performed By: #### E RUR #### [facility] [address] [place] [address] Dr. Vito Grimm LEUKOCYTES Negative Normal NEGATIVE [facility] Comment on above: Performed By: #### E RUR #### [facility] [address] [place] [address] Dr. Vito Grimm Nitrite Ql (U) Negative Normal NEGATIVE [facility] Comment on above: Performed By: #### E RUR #### [facility] [address] [place] [address] Dr. Vito Grimm pH (U) 5.5 [pH] Normal 5-9 [facility] Comment on above: Performed By: #### E RUR #### [facility] [address] [place] [address] Dr. Vito Grimm SPEC GRAVITY 1.010 Normal 1.005-<=1. 025 [facility] Comment on above: Performed By: #### E RUR #### [facility] [address] [place] [address] Dr. Vito Grimm UA PROTEIN Negative Normal NEGATIVE/ TRACE [facility] Comment on above: Performed By: #### E RUR #### [facility] [address] [place] [address] Dr. Vito Grimm UR MICRO IND NOT INDICATED Normal [facility] Comment on above: Performed By: #### E RUR #### [facility] [address] [place] [address] Dr. Vito Grimm Urobilinogen Qn (U) 0.2 {Helen'U}/dL Normal 0.2 - 1. 0 [facility] Comment on above: Performed By: #### E RUR #### [facility] [address] [place] [address] Dr. Vito Grimm POINT OF CARE GLUCOSEon 01-03 Glucose [Mass/Vol] 279 mg/dL Critically high 74-106 [facility] Comment on above: Performed By: #### P OCGLUC #### [facility] [address] [place] [address] Dr. Vito Grimm PROF 14(COMP METB)on 023 Albumin [Mass/Vol] 3.5 g/dL Normal 3.4-5.0 [facility] Comment on above: Performed By: #### C MATHIEU HSTROPN #### [facility] [address] [place] [address] Dr. Vito Grimm Albumin/Globulin [Mass ratio] 1.0 {ratio} Normal [facility] Comment on above: Performed By: #### C MATHIEU HSTROPN #### [facility] [address] [place] [address] Dr. Vito Grimm ALP [Catalytic activity/Vol] 85 U/L Normal 46-116 [facility] Comment on above: Performed By: #### C MATHIEU HSTROPN #### [facility] [address] [place] [address] Dr. Vito Grimm ALT [Catalytic activity/Vol] 28 U/L Normal 14-59 [facility] Comment on above: Performed By: #### C MATHIEU HSTROPN #### [facility] [address] [place] [address] Dr. Vito Grimm Anion gap [Moles/Vol] 15.9 mmol/L Normal [facility] Comment on above: Performed By: #### C MATHIEU, HSTROPN #### [facility] [address] [address] [address] Vito Grimm AST [Catalytic activity/Vol] 16 U/L Normal 15-37 [facility] Comment on above: Performed By: #### C MATHIEU, HSTROPN #### [facility] [address] [address] [address] Vito Grimm Bilirubin [Mass/Vol] 0.2 mg/dL Normal 0.2-1.0 [facility] Comment on above: Performed By: #### C MATHIEU, HSTROPN #### [facility] [address] [place] [address] Dr. Vito Grimm Calcium [Mass/Vol] 8.8 mg/dL Normal 8.5-10.1 [facility] Comment on above: Performed By: #### C MATHIEU, HSTROPN #### [facility] [address] [place] [address] Dr. Vito Grimm Chloride [Moles/Vol] 96 mmol/L Critically low 98-107 [facility] Comment on above: Performed By: #### C MATHIEU, HSTROPN #### [facility] [address] [place] [address] Dr. Vito Grimm CO2 [Moles/Vol] 24.1 mmol/L Normal 21.0-32.0 [facility] Comment on above: Performed By: #### C MATHIEU, HSTROPN #### [facility] [address] [place] [address] Dr. Vito Grimm Creatinine [Mass/Vol] 0.85 mg/dL Normal 0.55-1.02 [facility] Comment on above: Performed By: #### C MATHIEU, HSTROPN #### [facility] [address] [place] [address] Dr. Vito Grimm EGFR-AF MONTSERRATIAN >60 Normal >=60 [facility] Comment on above: Performed By: #### C MATHIEU, HSTROPN #### [facility] [address] [address] [address] Vito Grimm EGFR-NON AF MONTSERRATIAN >60 Normal >=60 [facility] Comment on above: Performed By: #### C MP, HSTROPN #### [facility] [address] [address] [address] Vito Grimm Globulin (S) [Mass/Vol] 3.6 g/dL Normal [facility] Comment on above: Performed By: #### C MP, HSTROPN #### [facility] [address] [address] [address] Vito Grimm Glucose [Mass/Vol] 350 mg/dL Critically high 74-[address] [facility] Comment on above: Performed By: #### C MP, HSTROPN #### [facility] [address] [place] [address] Dr. Vito Grimm Potassium [Moles/Vol] 4.0 mmol/L Normal 3.5-5.1 [facility] Comment on above: Performed By: #### C MP, HSTROPN #### [facility] [address] [address] [address] Vito Grimm Protein [Mass/Vol] 7.1 g/dL Normal 6.4-8.2 [facility] Comment on above: Performed By: #### C MP, HSTROPN #### [facility] [address] [address] [address] Vito Grimm Sodium [Moles/Vol] 132 mmol/L Critically low 136-145 [facility] Comment on above: Performed By: #### C MP, HSTROPN #### [facility] [address] [place] [address] Dr. Vito Grimm Urea nitrogen [Mass/Vol] 10.0 mg/dL Normal 7.0-18.0 [facility] Comment on above: Performed By: #### C MP, HSTROPN #### [facility] [address] [address] [address] Vito Grimm Urea nitrogen/Creatinine [Mass ratio] 11.8 mg/mg Normal [facility] Comment on above: Performed By: #### C MP, HSTROPN #### [facility] [address] [address] [address] Vito Grimm TROPONIN, HIGH SENSITIVITYon 01-29-2023 HSTROP <4.0 Normal 4.0-51.3 [facility] Comment on above: Result Comment: CUT- OFF POINTS HAVE BEEN ESTABLISHED BASED ON THE FOURTH UNIVERSAL DEFINITIONS OF MYOCARDIAL INFARCTION. THE UPPER REFERENCE LIMIT (URL) OF TROPONIN, DEFINED THE 99TH PERCENTILE OF cTnI DISTRIBUTION IN A REFERENCE POPULATION, HAS BEEN CONFIRMED THE DECISION THRESHOLD FOR DE DIAGNOSIS. Performed By: #### C MP, HSTROPN #### [facility] [address] [address] [address] Vito Grimm HCG ( test) IAPanchitorapi d Ql (U)Ordered By: Kyler Miramontes on 11-18-2022 HCG ( test) Ql (U) Negative [facility] CBC AUTO DIFFon 11-12-2022 BASO # 0.1 103/ul Normal 0.0-0.1 [facility] Comment on above: Performed By: #### C MP, HSTROPN #### [facility] [address] [address] [address] Vito Grimm Basophils/100 WBC (Bld) 0.6 % Normal 0.2-2.0 [facility] Comment on above: Performed By: #### C MP, HSTROPN #### [facility] [address] [address] [address] Vito Grimm EO # 0.2 103/ul Normal 0.0-0.7 [facility] Comment on above: Performed By: #### C MP, HSTROPN #### [facility] [address] [address] [address] Vito Grimm Eosinophils/100 WBC (Bld) 1.1 % Normal 0.9-7.0 [facility] Comment on above: Performed By: #### C MP, HSTROPN #### [facility] [address] [address] [address] Vito Grimm Erythrocyte distribution width (RBC) [Ratio] 12.6 % Normal 11.0-15.0 [facility] Comment on above: Performed By: #### C MATHIEU, HSTROPN #### [facility] [address] [place] [address] Dr. Vito Grimm Hematocrit (Bld) [Volume fraction] 39.7 % Normal 36.0-48.0 [facility] Comment on above: Performed By: #### C MATHIEU, HSTROPN #### [facility] [address] [place] [address] Dr. Vito Grimm Hemoglobin (Bld) [Mass/Vol] 12.9 g/dL Normal 12.0-16.0 [facility] Comment on above: Performed By: #### C MATHIEU, HSTROPN #### [facility] [address] [place] [address] Dr. Vito Grimm IG # 0.07 10e3/ul Critically high 0.00-0.03 [facility] Comment on above: Performed By: #### C MATHIEU, HSTROPN #### [facility] [address] [place] [address] Dr. Vito Grimm IG % 0.5 % Normal 0.0-0.5 [facility] Comment on above: Performed By: #### C MATHIEU, HSTROPN #### [facility] [address] [place] [address] Dr. Vito Grimm LYMPH # 5.3 103/ul Critically high 1.2-3.8 [facility] Comment on above: Performed By: #### C MATHIEU, HSTROPN #### [facility] [address] [place] [address] Dr. Vito Grimm Lymphocytes/100 WBC (Bld) 38.4 % Normal 20.5-60.0 [facility] Comment on above: Performed By: #### C MATHIEU, HSTROPN #### [facility] [address] [place] [address] Dr. Vito Grimm MANUAL DIFF REQ NO Normal [facility] Comment on above: Performed By: #### C MATHIEU, HSTROPN #### [facility] [address] [place] [address] Dr. Vito Grimm MCH (RBC) [Entitic mass] 29.7 pg Normal 26.7-34.0 [facility] Comment on above: Performed By: #### C MP, HSTROPN #### [facility] [address] [place] [address] Dr. Vito Grimm MCHC (RBC) [Mass/Vol] 32.5 g/dL Normal 29.9-35.2 [facility] Comment on above: Performed By: #### C MP, HSTROPN #### [facility] [address] [place] [address] Dr. Vito Grimm MCV (RBC) [Entitic vol] 91.5 fL Normal 81.0-99.0 [facility] Comment on above: Performed By: #### C MP, HSTROPN #### [facility] [address] [place] [address] Dr. Vito Grimm MONO # 1.0 103/ul Critically high 0.3-0.8 [facility] Comment on above: Performed By: #### C MP, HSTROPN #### [facility] [address] [place] [address] Dr. Vito Grimm Monocytes/100 WBC (Bld) 7.3 % Normal 1.7-12.0 [facility] Comment on above: Performed By: #### C MP, HSTROPN #### [facility] [address] [place] [address] Dr. Vito Grimm NEUT # 7.2 103/ul Critically high 1.4-6.5 [facility] Comment on above: Performed By: #### C MP, HSTROPN #### [facility] [address] [place] [address] Dr. Vito Grimm Neutrophils/100 WBC (Bld) 52.1 % Normal 43.0-75.0 [facility] Comment on above: Performed By: #### C MP, HSTROPN #### [facility] [address] [place] [address] Dr. Vito Grimm Platelet mean volume (Bld) [Entitic vol] 9.4 fL Critically low 9.5-13.5 [facility] Comment on above: Performed By: #### C MATHIEU, HSTROPN #### [facility] [address] [place] [address] Dr. Vito Grimm PLT 297 103/ul Normal 150-450 [facility] Comment on above: Performed By: #### C MATHIEU, HSTROPN #### [facility] [address] [place] [address] Dr. Vito Grimm RBC 4.34 106/ul Normal 4.20-5.40 [facility] Comment on above: Performed By: #### C MATHIEU, HSTROPN #### [facility] [address] [place] [address] Dr. Vito Grimm WBC 13.9 103/ul Critically high 4.0-11.0 [facility] Comment on above: Performed By: #### C MATHIEU, HSTROPN #### [facility] [address] [place] [address] Dr. Vito Grimm DEPAKENE/ VALPROIC ACIDon DEPAKENE 55.9 ug/ml Normal 50.0-100.0 [facility] Comment on above: Performed By: #### V ALP #### [facility] [address] [place] [address] Dr. Vito Grimm LACTATE/LACTIC ACIDon 2022 Lactate [Moles/Vol] 3.6 mmol/L Critically high 0.4-1.9 [facility] Comment on above: Performed By: #### C MATHIEU, HSTROPN #### [facility] [address] [place] [address] Dr. Vito Grimm PROF 14(COMP METB)on 023 Albumin [Mass/Vol] 3.6 g/dL Normal 3.4-5.0 [facility] Comment on above: Performed By: #### C MATHIEU, HSTROPN #### [facility] [address] [place] [address] Dr. Vito Grimm Albumin/Globulin [Mass ratio] 1.1 {ratio} Normal [facility] Comment on above: Performed By: #### C MP, HSTROPN #### [facility] [address] [address] [address] Vito Grimm ALP [Catalytic activity/Vol] 57 U/L Normal 46-116 [facility] Comment on above: Performed By: #### C MP, HSTROPN #### [facility] [address] [place] [address] Dr. Vito Grimm ALT [Catalytic activity/Vol] 23 U/L Normal 14-59 [facility] Comment on above: Performed By: #### C MP, HSTROPN #### [facility] [address] [place] [address] Dr. Vito Grimm Anion gap [Moles/Vol] 17.0 mmol/L Normal [facility] Comment on above: Performed By: #### C MP, HSTROPN #### [facility] [address] [place] [address] Dr. Vito Grimm AST [Catalytic activity/Vol] 16 U/L Normal 15-37 [facility] Comment on above: Performed By: #### C MP, HSTROPN #### [facility] [address] [place] [address] Dr. Vito Grimm Bilirubin [Mass/Vol] 0.1 mg/dL Critically low 0.2-1.0 [facility] Comment on above: Performed By: #### C MP, HSTROPN #### [facility] [address] [place] [address] Dr. Vito Grimm Calcium [Mass/Vol] 8.8 mg/dL Normal 8.5-10.1 [facility] Comment on above: Performed By: #### C MP, HSTROPN #### [facility] [address] [place] [address] Dr. Vito Grimm Chloride [Moles/Vol] 101 mmol/L Normal 98-107 [facility] Comment on above: Performed By: #### C MP, HSTROPN #### [facility] [address] [place] [address] Dr. Vito Grimm CO2 [Moles/Vol] 23.5 mmol/L Normal 21.0-32.0 [facility] Comment on above: Performed By: #### C MP, HSTROPN #### [facility] [address] [address] [address] Vito Grimm Creatinine [Mass/Vol] 0.72 mg/dL Normal 0.55-1.02 [facility] Comment on above: Performed By: #### C MP, HSTROPN #### [facility] [address] [address] [address] Vito Grimm EGFR-AF MONTSERRATIAN >60 Normal >=60 [facility] Comment on above: Performed By: #### C MP, HSTROPN #### [facility] [address] [place] [address] Dr. Vito Grimm EGFR-NON AF MONTSERRATIAN >60 Normal >=60 [facility] Comment on above: Performed By: #### C MP, HSTROPN #### [facility] [address] [place] [address] Dr. Vito Grimm Globulin (S) [Mass/Vol] 3.4 g/dL Normal [facility] Comment on above: Performed By: #### C MP, HSTROPN #### [facility] [address] [place] [address] Dr. Vito Grimm Glucose [Mass/Vol] 146 mg/dL Critically high 74-[address] [facility] Comment on above: Performed By: #### C MP, HSTROPN #### [facility] [address] [address] [address] Vito Grimm Potassium [Moles/Vol] 4.5 mmol/L Normal 3.5-5.1 [facility] Comment on above: Performed By: #### C MP, HSTROPN #### [facility] [address] [address] [address] Vito Grimm Protein [Mass/Vol] 7.0 g/dL Normal 6.4-8.2 [facility] Comment on above: Performed By: #### C MP, HSTROPN #### [facility] [address] [address] [address] Vito Grimm Sodium [Moles/Vol] 137 mmol/L Normal 136-145 [facility] Comment on above: Performed By: #### C MP, HSTROPN #### [facility] [address] [address] [address] Vito Grimm Urea nitrogen [Mass/Vol] 11.0 mg/dL Normal 7.0-18.0 [facility] Comment on above: Performed By: #### C MP, HSTROPN #### [facility] [address] [address] [address] Vito Grimm Urea nitrogen/Creatinine [Mass ratio] 15.3 mg/mg Normal [facility] Comment on above: Performed By: #### C MP, HSTROPN #### [facility] [address] [address] [address] Vito Grimm Albumin [Mass/volume] in Ser um or PlasmaOrdered By: Ajit Pettit on 11-05-2022 Albumin [Mass/Vol] 4.2 g/dL 3.2-5.5 [facility] Basophils Auto (Bld) [#/Vol] Ordered By: Ajit Pettit on 11-05-2022 Basophils (Bld) [#/Vol] 0.1 10*3/uL 0.0-0.2 [facility] Basophils/100 WBC Auto (Bld) Ordered By: Ajit Pettit on 11-05-2022 Basophils/100 WBC (Bld) 0.8 % . [facility] Cholesterol [Mass/volume] in Serum or PlasmaOrdered By: Ajit Pettit on 11-05-2022 Cholesterol [Mass/Vol] 174 mg/dL 140-200 [facility] Comment on above: Chol less than 200 m g/dl low riskChol 201-239 mg/dl borderline riskChol 240 mg/dl and greater high risk Cholesterol in LDL Calc [Mas s/Vol]Ordered By: Ajit Pettit on 11-05-2022 Cholesterol in LDL [Mass/Vol] 66 mg/dL 0-100 [facility] Comment on above: LDL ATP III CLASSIFI CATIONLDL less than 100 mg/dL OptimalLDL 100-129 mg/dL Near or above optimalLDL 130-159 mg/dL Borderline highLDL 160-189 mg/dL HighLDL greater than 189 mg/dL Very high Cholesterol in VLDL Calc [Ma ss/Vol]Ordered By: Ajit Pettit on 11-05-2022 Cholesterol in VLDL [Mass/Vol] 66 mg/dL [facility] Creatinine and Glomerular fi ltration rate.predicted panel (S/P/Bld)Ordered By: Ajit Pettit on 11-05-2022 Creatinine [Mass/Vol] 0.57 mg/dL 0.44-1.03 [facility] Eosinophils Auto (Bld) [#/Vo l]Ordered By: Ajit Pettit on 11-05-2022 Eosinophils (Bld) [#/Vol] 0.1 10*3/uL 0.0-0.45 [facility] Eosinophils/100 WBC Auto (Bl d)Ordered By: Ajit Pettit on 11-05-2022 Eosinophils/100 WBC (Bld) 0.7 % . [facility] Erythrocyte distribution wid th Auto (RBC) [Ratio]Ordered By: Ajit Pettit on 11-05-2022 Erythrocyte distribution width (RBC) [Ratio] 13.5 % 11.9-15.3 [facility] Estimated glomerular filtrat ion rate (GFR) non- AmericanOrdered By: Ajit Pettit on 11-05-2022 GFR/1.73 sq M.predicted among non-blacks MDRD (S/P/Bld) [Vol rate/Area] > 60 mL/Min [facility] Globulin Calc (S) [Mass/Vol] Ordered By: Ajit Pettit on 11-05-2022 Globulin (S) [Mass/Vol] 2.6 g/dL [facility] Glucose mean value [Mass/vol ume] in Blood Estimated from glycated hemoglobinOrdered By: Ajit Pettit on 11-05-2022 Average glucose Estimated from glycated hemoglobin (Bld) [Mass/Vol] 143 mg/dL [facility] HPV 16+18+31+33+35+39+45+51+ 52+56+58+59+68 DNA cervix probe + signal amplificOrdered By: Ajit Pettit on 11-05-2022 HPV 16+18+31+33+35+39+45+5 1+52+56+58+59+68 DNA Probe+sig amp Ql (Cvx) Positive Negative [facility] Comment on above: This nucleic acid am plification test detects fourteen high- risk HPV types (16,18,31,33,35,39,45,51,52,56,58,59,66,68)without differentiation. Hematocrit Auto (Bld) [Volum e fraction]Ordered By: Ajit Pettit on 11-05-2022 Hematocrit (Bld) [Volume fraction] 40.1 % 34.0-46.4 [facility] Hemoglobin A1c percentageOrd ered By: Ajit Pettit on 11-05-2022 HbA1c (Bld) [Mass fraction] 6.6 % 4.3-5.6 [facility] Comment on above: Increased risk for d iabetes: 5.7 - 6.4diabetes: >6.4glycemic control for adults with diabetes: <7.0 Hemoglobin [Mass/volume] in BloodOrdered By: Ajit Pettit on 11-05-2022 Hemoglobin (Bld) [Mass/Vol] 13.2 g/dL 11.8-15.4 [facility] - Microbiology an d Antimicrobial susceptibilityOrdered By: Ajit Pettit on 11-05-2022 N. gonorrhoeae DNA NAYELY+probe Ql (Unsp spec) Negative Negative [facility] Comment on above: Performed at: =[address] [id number] Director: Breanna Clark MD, Phone: [phone] Leukocytes [#/volume] correc cherie for nucleated erythrocytes in Blood by Automated counOrdered By: Ajit Pettit on 11-05-2022 WBC corrected for nucl RBC Auto (Bld) [#/Vol] 13.7 10*3/uL 3.8-11.6 [facility] Lymphocytes Auto (Bld) [#/Vo l]Ordered By: Ajit Pettit on 11-05-2022 Lymphocytes (Bld) [#/Vol] 5.1 10*3/uL 1.00-4.8 [facility] Lymphocytes/100 WBC Auto (Bl d)Ordered By: Ajit Pettit on 11-05-2022 Lymphocytes/100 WBC (Bld) 37.3 % . [facility] MCH Auto (RBC) [Entitic mass ]Ordered By: Ajit Pettit on 11-05-2022 MCH (RBC) [Entitic mass] 29.5 pg 24.7-34.3 [facility] MCHC Auto (RBC) [Mass/Vol]Or dered By: Ajit Pettit on 11-05-2022 MCHC (RBC) [Mass/Vol] 32.8 g/dL 32.0-35.0 [facility] MCV Auto (RBC) [Entitic vol] Ordered By: Ajit Pettit on 11-05-2022 MCV (RBC) [Entitic vol] 90.0 fL 80-100 [facility] Microcytes LM Ql (Bld)Ordere d By: Ajit Pettit on 11-05-2022 Microcytes Ql (Bld) Slight [facility] Monocytes Auto (Bld) [#/Vol] Ordered By: Ajit Pettit on 11-05-2022 Monocytes (Bld) [#/Vol] 1.1 10*3/uL 0.0-0.8 [facility] Monocytes/100 WBC Auto (Bld) Ordered By: Ajit Pettit on 11-05-2022 Monocytes/100 WBC (Bld) 8.3 % . [facility] Neutrophils Auto (Bld) [#/Vo l]Ordered By: Ajit Pettit on 11-05-2022 Neutrophils (Bld) [#/Vol] 7.3 10*3/uL 1.8-7.7 [facility] Neutrophils/100 WBC Auto (Bl d)Ordered By: Ajit Pettit on 11-05-2022 Neutrophils/100 WBC (Bld) 52.9 % . [facility] No Panel InformationOrdered By: Ajit Pettit on 11-05-2022 25-Hydroxy Vitamin D Total 28.8 ng/mL 30-100 [facility] Comment on above: VITAMIN D STATUS 25( OH)VITAMIN D RANGE (ng/mL) Deficient <20 Insufficient 20 to <30Sufficient 30 to 100Reference: Jovanni MF,Dominique NC, Gillian NINA, et al. Evaluation,treatment, and prevention of vitamin D deficiency; an Endocrine Society clinical practice guideline. JCEM. 2010; 96(7):1911-30. Luz Elnea albicans (NAYELY) Negative Negative [facility] Comment on above: This test was develo ped and its performance characteristicsdetermined by [employer]. It has not been cleared orapproved by the Food and Drug Administration. Luz Elena glabrata (NAYELY) Negative Negative [facility] Comment on above: This test was develo ped and its performance characteristicsdetermined by [employer]. It has not been cleared orapproved by the Food and Drug Administration. Chlamydia trachomatis (NAYELY) (LAB) Negative Negative [facility] Estimated GFR () > 60 mL/Min [facility] Comment on above: GFR estimated refere nce range: According to KDOQI guidelines, <60 ml/min/1.73m2 is sufficient to diagnose a patient with chronic kidney disease. Human Papilloma Virus Type 16 Negative Negative [facility] Human Papilloma Virus Type 18/45 Negative Negative [facility] Comment on above: Performed at: =G - [address] [id number] Director: Breanna Clark MD, Phone: [phone] at: - [facility] [id number] Director: Breanna Clark MD, Phone: [phone] IG Pap w/Ct-Ng Age Based (Off-Site) Note . [facility] Comment on above: TESTS RESULT FLAG UN ITS REF RANGE LAB Clinician Provided Cytology Information No. of containers..01 ThinPrep VialAge Algo ACOG Monisha... 30-65 FLAG LEGEND: L-Low Normal,H-High Normal,LL-Alert Low,HH-Alert High <-Panic Low,>-Panic High,A-Abnormal,AA-Critical Abnormal -----Performed at:01 =G [facility] [address] [place] [address] Breanna Clark MD, Pharmacy Creatinine Clearance (Chem N/A [facility] Thin Prep Pap Comment Note . [facility] Comment on above: TESTS RESULT FLAG UN ITS REF RANGE LAB DIAGNOSIS: 02 NEGATIVE FOR INTRAEPITHELIAL LESION OR MALIGNANCY. THIS SPECIMEN WAS RESCREENED PART OF OUR RADAR TECHNICIAN PROGRAM.Specimen adequacy: 02 Satisfactory for evaluation. Endocervical and/or squamous metaplastic cells (endocervical component) are present.Performed by: Charla Mirza, Student Development Specialist (ASC)QC reviewed by: Charla Thomason, Supervisory Student Development Specialist (ASCP). 02Note: Note 02 The Pap smear [...] the use of an image guided system. ---- FLAG LEGEND: L-Low Normal,H-High Normal,LL-Alert Low,HH-Alert High <-Panic Low,>-Panic High,A-Abnormal,AA-Critical Abnormal -----Performed at: WB [facility] [address] [place] [address] Breanna Clark MD, Trichomonas vaginalis (NAYELY) Negative Negative [facility] Nucleated erythrocytes [Pres ence] in Blood by Automated countOrdered By: Ajit Pettit on 11-05-2022 Nucleated RBC Auto Ql (Bld) 0.1 /100{WBC} 0-0.5 [facility] Platelet adequacy [Presence] in Blood by Light microscopyOrdered By: Ajit Pettit on 11-05-2022 Platelets LM Ql (Bld) Normal Normal [facility] Platelet mean volume Auto (B ld) [Entitic vol]Ordered By: Ajit Pettit on 11-05-2022 Platelet mean volume (Bld) [Entitic vol] 9.1 fL 6.3-10.7 [facility] Platelet morphology finding [Identifier] in BloodOrdered By: Ajit Pettit on 11-05-2022 Platelet morphology finding Nom (Bld) N/A [facility] Platelets Auto (Bld) [#/Vol] Ordered By: Ajit Pettit on 11-05-2022 Platelets (Bld) [#/Vol] 304 10*3/uL 150-450 [facility] Platelets Large [Presence] i n Blood by Light microscopyOrdered By: Ajit Pettit on 11-05-2022 Platelets Large LM Ql (Bld) Slight [facility] Polychromasia [Presence] in Blood by Light microscopyOrdered By: Ajit Pettit on 11-05-2022 Polychromasia LM Ql (Bld) Slight [facility] Protein [Mass/volume] in Ser um or PlasmaOrdered By: Ajit Pettit on 11-05-2022 Protein [Mass/Vol] 6.8 g/dL 6.1-7.9 [facility] RBC Auto (Bld) [#/Vol]Ordere d By: Ajit Pettit on 11-05-2022 RBC (Bld) [#/Vol] 4.46 10*6/uL 3.60-5.00 [facility] RBC morphologyOrdered By: Cole Pettit on 11-05-2022 RBC morphology finding Nom (Bld) N/A [facility] Serum or plasma alanine george otransferase measurement without P-5'-P (enzymatic activiOrdered By: Ajit Pettit on 11-05-2022 ALT No additional P-5'-P [Catalytic activity/Vol] 16 U/L 10-60 [facility] Serum or plasma albumin/glob ulin mass ratioOrdered By: Ajit Pettit on 11-05-2022 Albumin/Globulin [Mass ratio] 1.6 {ratio} [facility] Serum or plasma alkaline lalo sphatase measurement (enzymatic activity/volume)Ordered By: Ajit Pettit on 11-05-2022 ALP [Catalytic activity/Vol] 52 U/L 32-92 [facility] Serum or plasma anion gap de terminationOrdered By: Ajit Pettit on 11-05-2022 Anion gap [Moles/Vol] 14.2 mmol/L 6.0-15.0 [facility] Serum or plasma aspartate am inotransferase measurement (enzymatic activity/volume)Ordered By: Ajit Pettit on 11-05-2022 AST [Catalytic activity/Vol] 20 U/L 10-42 [facility] Serum or plasma calcium ashwini urement (mass/volume)Ordered By: Ajit Pettit on 11-05-2022 Calcium [Mass/Vol] 9.3 mg/dL 8.2-10.2 [facility] Serum or plasma chloride jett surement (moles/volume)Ordered By: Ajit Pettit on 11-05-2022 Chloride [Moles/Vol] 99 mmol/L 95-114 [facility] Serum or plasma glucose ashwini urement (mass/volume)Ordered By: Ajit Pettit on 11-05-2022 Glucose [Mass/Vol] 96 mg/dL 70-100 [facility] Comment on above: ADA recommended refe rence rangeRandom Glucose Reference Range is dependent on time and content of last meal. Glucose of more than 200 mg/dL in a nonstressed, ambulatory subject supports the diagnosis of Diabetes Mellitus. Serum or plasma high density lipoprotein (HDL) cholesterol measurementOrdered By: Ajit Pettit on 11-05-2022 Cholesterol in HDL [Mass/Vol] 42 mg/dL 35-85 [facility] Comment on above: HDL CHOL ATP-III CLA SSIFICATION Cardiovascular RiskHDL > or equal to 60 mg/dL LOWHDL < 40 mg/dL HIGH Serum or plasma potassium me asurement (moles/volume)Ordered By: Ajit Pettit on 11-05-2022 Potassium [Moles/Vol] 4.3 mmol/L 3.5-5.1 [facility] Serum or plasma sodium measu rement (moles/volume)Ordered By: Ajit Pettit on 11-05-2022 Sodium [Moles/Vol] 132 mmol/L 136-146 [facility] Serum or plasma total biliru bin measurement (mass/volume)Ordered By: Ajit Pettit on 11-05-2022 Bilirubin [Mass/Vol] 0.3 mg/dL 0.3-1.2 [facility] Serum or plasma total carbon dioxide measurement (moles/volume)Ordered By: Ajit Pettit on 11-05-2022 CO2 [Moles/Vol] 23.1 mmol/L 22.0-30.0 [facility] Serum or plasma total choles terol/high density lipoprotein (HDL) cholesterol mass ratOrdered By: Ajit Pettit on 11-05-2022 Cholesterol.total/Chol esterol in HDL [Mass ratio] 4.1 {ratio} <5.0 [facility] Serum or plasma urea nitroge n measurement (mass/volume)Ordered By: Ajit Pettit on 11-05-2022 Urea nitrogen [Mass/Vol] 7 mg/dL 9-23 [facility] TSH DL <= 0.005 mIU/L QnOrde red By: Ajit Pettit on 11-05-2022 TSH Qn 4.07 m[IU]/L 0.45-5.33 [facility] Triglyceride [Mass/volume] i n Serum or PlasmaOrdered By: Ajit Pettit on 11-05-2022 Triglyceride [Mass/Vol] 330 mg/dL 35-149 [facility] Comment on above: TRIG ATP III CLASSIF ICATIONTRIG less than 150 mg/dL NormalTRIG 150-199 mg/dL Borderline highTRIG 200-500 mg/dL High TRIG greater than 500 mg/dL Very highStandard traceable to the Center for Disease Conrtrol and Prevention (CDC) test method. Urine culture routineOrdered By: Ajit Pettit on 11-05-2022 Bacteria identified Cx Nom (U) No Growth 2 Days [facility] Vaginal fluid Atopobium vagi rich DNA detection by probe and target amplification methoOrdered By: Ajit Pettit on 11-05-2022 A. vaginae DNA NAYELY+probe Ql (Vag fld) Low - 0 Score . [facility] Vaginal fluid Megasphaera sp ecies type 1 DNA detection by probe and target amplificatOrdered By: Ajit Pettit on 11-05-2022 Megasphaera sp type 1 DNA NAYELY+probe Ql (Vag fld) Low - 0 Score . [facility] Comment on above: Calculate total scor e by adding the 3 individual bacterialvaginosis (BV) marker scores together. Total score isinterpreted as follows:Total score 0-1: Indicates the absence of BV.Total score 2: Indeterminate for BV. Additional clinical data should be evaluated to establish a diagnosis.Total score 3-6: Indicates the presence of BV.This test was developed and its performance characteristicsdetermined by [employer]. It has not been cleared or approvedby the Food and Drug Administration. Vaginal fluid bacterial vagi nosis associated bacterium 2 DNA detection by probe and tOrdered By: Ajit Pettit on 11-05-2022 Bacterial vaginosis associated bacterium 2 DNA NAYELY+probe Ql (Vag fld) Low - 0 Score . [facility] WBC Auto (Bld) [#/Vol]Ordere d By: Ajit Pettit on 11-05-2022 WBC (Bld) [#/Vol] 13.7 10*3/uL 3.8-11.6 [facility] Basophils Auto (Bld) [#/Vol] Ordered By: Ajit Pettit on 07-08-2022 Basophils (Bld) [#/Vol] 0.1 10*3/uL 0.0-0.2 [facility] Basophils/100 WBC Auto (Bld) Ordered By: Ajit Pettit on 07-08-2022 Basophils/100 WBC (Bld) 0.4 % . [facility] Blood hemoglobin measurement (mass/volume)Ordered By: Ajit Pettit on 07-08-2022 Hemoglobin (Bld) [Mass/Vol] 12.7 g/dL 11.8-15.4 [facility] Blood leukocytes automated c ount (number/volume)Ordered By: Ajit Pettit on 07-08-2022 WBC (Bld) [#/Vol] 14.3 10*3/uL 4.5-11.0 [facility] Body fluid albumin measureme nt (mass/volume)Ordered By: Ajit Pettit on 07-08-2022 Albumin (Body fld) [Mass/Vol] 3.6 g/dL 3.2-5.5 [facility] Creatinine and Glomerular fi ltration rate.predicted panel (S/P/Bld)Ordered By: Ajit Pettit on 07-08-2022 Creatinine [Mass/Vol] 0.66 mg/dL 0.44-1.03 [facility] Eosinophils Auto (Bld) [#/Vo l]Ordered By: Ajit Pettit on 07-08-2022 Eosinophils (Bld) [#/Vol] 0.2 10*3/uL 0.0-0.45 [facility] Eosinophils/100 WBC Auto (Bl d)Ordered By: Ajit Pettit on 07-08-2022 Eosinophils/100 WBC (Bld) 1.2 % . [facility] Erythrocyte distribution wid th Auto (RBC) [Ratio]Ordered By: Ajit Pettit on 07-08-2022 Erythrocyte distribution width (RBC) [Ratio] 13.5 % 11.9-15.3 [facility] Estimated glomerular filtrat ion rate (GFR) non- AmericanOrdered By: Ajit Pettit on 07-08-2022 GFR/1.73 sq M.predicted among non-blacks MDRD (S/P/Bld) [Vol rate/Area] > 60 mL/Min [facility] Globulin Calc (S) [Mass/Vol] Ordered By: Ajit Pettit on 07-08-2022 Globulin (S) [Mass/Vol] 2.4 g/dL [facility] Hematocrit Auto (Bld) [Volum e fraction]Ordered By: Ajit Pettit on 07-08-2022 Hematocrit (Bld) [Volume fraction] 38.9 % 34.0-46.4 [facility] Laboratory - Hematology and Cell countsOrdered By: Ajit Pettit on 07-08-2022 Nucleated RBC/100 WBC (Bld) [Ratio] 0.0 % 0-0.5 [facility] Lymphocytes Auto (Bld) [#/Vo l]Ordered By: Ajit Pettit on 07-08-2022 Lymphocytes (Bld) [#/Vol] 4.5 10*3/uL 1.00-4.8 [facility] Lymphocytes/100 WBC Auto (Bl d)Ordered By: Ajit Pettit on 07-08-2022 Lymphocytes/100 WBC (Bld) 31.2 % . [facility] MCH Auto (RBC) [Entitic mass ]Ordered By: Ajit Pettit on 07-08-2022 MCH (RBC) [Entitic mass] 29.7 pg 24.7-34.3 [facility] MCHC Auto (RBC) [Mass/Vol]Or dered By: Ajit Pettit on 07-08-2022 MCHC (RBC) [Mass/Vol] 32.7 g/dL 32.0-35.0 [facility] MCV Auto (RBC) [Entitic vol] Ordered By: Ajit Pettit on 07-08-2022 MCV (RBC) [Entitic vol] 90.8 fL 80-100 [facility] Monocytes Auto (Bld) [#/Vol] Ordered By: Ajit Pettit on 07-08-2022 Monocytes (Bld) [#/Vol] 1.1 10*3/uL 0.0-0.8 [facility] Monocytes/100 WBC Auto (Bld) Ordered By: Ajit Pettit on 07-08-2022 Monocytes/100 WBC (Bld) 7.8 % . [facility] Neutrophils Auto (Bld) [#/Vo l]Ordered By: Ajit Pettit on 07-08-2022 Neutrophils (Bld) [#/Vol] 8.5 10*3/uL 1.8-7.7 [facility] Neutrophils/100 WBC Auto (Bl d)Ordered By: Ajit Pettit on 07-08-2022 Neutrophils/100 WBC (Bld) 59.4 % . [facility] No Panel InformationOrdered By: Ajit Pettit on 07-08-2022 Estimated GFR () > 60 mL/Min [facility] Comment on above: GFR estimated refere nce range: According to KDOQI guidelines, <60 ml/min/1.73m2 is sufficient to diagnose a patient with chronic kidney disease. Pharmacy Creatinine Clearance (Chem N/A [facility] Platelet mean volume Auto (B ld) [Entitic vol]Ordered By: Ajit Pettit on 07-08-2022 Platelet mean volume (Bld) [Entitic vol] 8.3 fL 6.3-10.7 [facility] Platelets Auto (Bld) [#/Vol] Ordered By: Ajit Pettit on 07-08-2022 Platelets (Bld) [#/Vol] 332 10*3/uL 150-450 [facility] Protein [Mass/volume] in Ser um or PlasmaOrdered By: Ajit Pettit on 07-08-2022 Protein [Mass/Vol] 6.0 g/dL 6.1-7.9 [facility] RBC Auto (Bld) [#/Vol]Ordere d By: Ajit Pettit on 07-08-2022 RBC (Bld) [#/Vol] 4.29 10*6/uL 3.60-5.00 [facility] Serum or plasma alanine george otransferase measurement without P-5'-P (enzymatic activiOrdered By: Ajit Pettit on 07-08-2022 ALT No additional P-5'-P [Catalytic activity/Vol] 26 U/L 60 [facility] Serum or plasma albumin/glob ulin mass ratioOrdered By: Ajit Pettit on 07-08-2022 Albumin/Globulin [Mass ratio] 1.5 {ratio} [facility] Serum or plasma alkaline lalo sphatase measurement (enzymatic activity/volume)Ordered By: Ajit Pettit on 07-08-2022 ALP [Catalytic activity/Vol] 46 U/L 32-92 [facility] Serum or plasma anion gap de terminationOrdered By: Ajit Pettit on 07-08-2022 Anion gap [Moles/Vol] 15.1 mmol/L 6.0-15.0 [facility] Serum or plasma aspartate am inotransferase measurement (enzymatic activity/volume)Ordered By: Ajit Pettit on 07-08-2022 AST [Catalytic activity/Vol] 31 U/L [facility] Serum or plasma calcium ashwini urement (mass/volume)Ordered By: Ajit Pettit on 07-08-2022 Calcium [Mass/Vol] 9.3 mg/dL 8.2-10.2 [facility] Serum or plasma chloride jett surement (moles/volume)Ordered By: Ajit Pettit on 07-08-2022 Chloride [Moles/Vol] 101 mmol/L 95-114 [facility] Serum or plasma glucose ashwini urement (mass/volume)Ordered By: Ajit Pettit on 07-08-2022 Glucose [Mass/Vol] 129 mg/dL 70-100 [facility] Comment on above: ADA recommended refe rence rangeRandom Glucose Reference Range is dependent on time and content of last meal. Glucose of more than 200 mg/dL in a nonstressed, ambulatory subject supports the diagnosis of Diabetes Mellitus. Serum or plasma potassium me asurement (moles/volume)Ordered By: Ajit Pettit on 07-08-2022 Potassium [Moles/Vol] 5.0 mmol/L 3.5-5.1 [facility] Serum or plasma sodium measu rement (moles/volume)Ordered By: Ajit Pettit on 07-08-2022 Sodium [Moles/Vol] 135 mmol/L 136-146 [facility] Serum or plasma total biliru bin measurement (mass/volume)Ordered By: Ajit Pettit on 07-08-2022 Bilirubin [Mass/Vol] 0.5 mg/dL 0.3-1.2 [facility] Serum or plasma total carbon dioxide measurement (moles/volume)Ordered By: Ajit Pettit on 07-08-2022 CO2 [Moles/Vol] 23.9 mmol/L 22.0-30.0 [facility] Serum or plasma urea nitroge n measurement (mass/volume)Ordered By: Ajit Pettit on 07-08-2022 Urea nitrogen [Mass/Vol] 12 mg/dL 9-23 [facility] TSH DL <= 0.005 mIU/L QnOrde red By: Ajit Pettit on 06-24-2022 TSH Qn 4.14 m[IU]/L 0.45-5.33 [facility] Basophils Auto (Bld) [#/Vol] Ordered By: Ajit Pettit on 06-02-2022 Basophils (Bld) [#/Vol] 0.1 10*3/uL 0.0-0.2 [facility] Basophils/100 WBC Auto (Bld) Ordered By: Ajit Pettit on 06-02-2022 Basophils/100 WBC (Bld) 0.9 % . [facility] Blood hemoglobin measurement (mass/volume)Ordered By: Ajit Pettit on 06-02-2022 Hemoglobin (Bld) [Mass/Vol] 12.9 g/dL 11.8-15.4 [facility] Blood leukocytes automated c ount (number/volume)Ordered By: Ajit Pettit on 06-02-2022 WBC (Bld) [#/Vol] 16.8 10*3/uL 4.5-11.0 [facility] Body fluid albumin measureme nt (mass/volume)Ordered By: Ajit Pettit on 06-02-2022 Albumin (Body fld) [Mass/Vol] 3.5 g/dL 3.2-5.5 [facility] Creatinine and Glomerular fi ltration rate.predicted panel (S/P/Bld)Ordered By: Ajit Pettit on 06-02-2022 Creatinine [Mass/Vol] 0.58 mg/dL 0.44-1.03 [facility] Eosinophils Auto (Bld) [#/Vo l]Ordered By: Ajit Pettit on 06-02-2022 Eosinophils (Bld) [#/Vol] 0.1 10*3/uL 0.0-0.45 [facility] Eosinophils/100 WBC Auto (Bl d)Ordered By: Ajit Pettit on 06-02-2022 Eosinophils/100 WBC (Bld) 0.7 % . [facility] Erythrocyte distribution wid th Auto (RBC) [Ratio]Ordered By: Ajit Pettit on 06-02-2022 Erythrocyte distribution width (RBC) [Ratio] 13.3 % 11.9-15.3 [facility] Estimated glomerular filtrat ion rate (GFR) non- AmericanOrdered By: Ajit Pettit on 06-02-2022 GFR/1.73 sq M.predicted among non-blacks MDRD (S/P/Bld) [Vol rate/Area] > 60 mL/Min [facility] Globulin Calc (S) [Mass/Vol] Ordered By: Ajit Pettit on 06-02-2022 Globulin (S) [Mass/Vol] 2.5 g/dL [facility] Hematocrit Auto (Bld) [Volum e fraction]Ordered By: Ajit Pettit on 06-02-2022 Hematocrit (Bld) [Volume fraction] 38.8 % 34.0-46.4 [facility] Laboratory - Hematology and Cell countsOrdered By: Ajit Pettit on 06-02-2022 Nucleated RBC/100 WBC (Bld) [Ratio] 0.0 % 0-0.5 [facility] Lymphocytes Auto (Bld) [#/Vo l]Ordered By: Ajit Pettit on 06-02-2022 Lymphocytes (Bld) [#/Vol] 3.4 10*3/uL 1.00-4.8 [facility] Lymphocytes/100 WBC Auto (Bl d)Ordered By: Ajit Pettit on 06-02-2022 Lymphocytes/100 WBC (Bld) 20.3 % . [facility] MCH Auto (RBC) [Entitic mass ]Ordered By: Ajit Pettit on 06-02-2022 MCH (RBC) [Entitic mass] 30.3 pg 24.7-34.3 [facility] MCHC Auto (RBC) [Mass/Vol]Or dered By: Ajit Pettit on 06-02-2022 MCHC (RBC) [Mass/Vol] 33.2 g/dL 32.0-35.0 [facility] MCV Auto (RBC) [Entitic vol] Ordered By: Ajit Pettit on 06-02-2022 MCV (RBC) [Entitic vol] 91.1 fL 80-100 [facility] Monocytes Auto (Bld) [#/Vol] Ordered By: Ajit Pettit on 06-02-2022 Monocytes (Bld) [#/Vol] 1.2 10*3/uL 0.0-0.8 [facility] Monocytes/100 WBC Auto (Bld) Ordered By: Ajit Pettit on 06-02-2022 Monocytes/100 WBC (Bld) 7.2 % . [facility] Neutrophils Auto (Bld) [#/Vo l]Ordered By: Ajit Pettit on 06-02-2022 Neutrophils (Bld) [#/Vol] 11.9 10*3/uL 1.8-7.7 [facility] Neutrophils/100 WBC Auto (Bl d)Ordered By: Ajit Pettit on 06-02-2022 Neutrophils/100 WBC (Bld) 70.9 % . [facility] No Panel InformationOrdered By: Ajit Pettit on 06-02-2022 Estimated GFR () > 60 mL/Min [facility] Comment on above: GFR estimated refere nce range: According to KDOQI guidelines, <60 ml/min/1.73m2 is sufficient to diagnose a patient with chronic kidney disease. Pharmacy Creatinine Clearance (Chem N/A [facility] Platelet mean volume Auto (B ld) [Entitic vol]Ordered By: Ajit Pettit on 06-02-2022 Platelet mean volume (Bld) [Entitic vol] 9.2 fL 6.3-10.7 [facility] Platelets Auto (Bld) [#/Vol] Ordered By: Ajit Pettit on 06-02-2022 Platelets (Bld) [#/Vol] 313 10*3/uL 150-450 [facility] Protein [Mass/volume] in Ser um or PlasmaOrdered By: Ajit Pettit on 06-02-2022 Protein [Mass/Vol] 6.0 g/dL 6.1-7.9 [facility] RBC Auto (Bld) [#/Vol]Ordere d By: Ajit Pettit on 06-02-2022 RBC (Bld) [#/Vol] 4.26 10*6/uL 3.60-5.00 [facility] Serum or plasma alanine george otransferase measurement without P-5'-P (enzymatic activiOrdered By: Ajit Pettit on 06-02-2022 ALT No additional P-5'-P [Catalytic activity/Vol] 20 U/L 10-60 [facility] Serum or plasma albumin/glob ulin mass ratioOrdered By: Ajit Pettit on 06-02-2022 Albumin/Globulin [Mass ratio] 1.4 {ratio} [facility] Serum or plasma alkaline lalo sphatase measurement (enzymatic activity/volume)Ordered By: Ajit Pettit on 06-02-2022 ALP [Catalytic activity/Vol] 48 U/L 32-92 [facility] Serum or plasma anion gap de terminationOrdered By: Ajit Pettit on 06-02-2022 Anion gap [Moles/Vol] 15.8 mmol/L 6.0-15.0 [facility] Serum or plasma aspartate am inotransferase measurement (enzymatic activity/volume)Ordered By: Ajit Pettit on 06-02-2022 AST [Catalytic activity/Vol] 21 U/L 10-42 [facility] Serum or plasma calcium ashwini urement (mass/volume)Ordered By: Ajit Pettit on 06-02-2022 Calcium [Mass/Vol] 9.1 mg/dL 8.2-10.2 [facility] Serum or plasma chloride jett surement (moles/volume)Ordered By: Ajit Pettit on 06-02-2022 Chloride [Moles/Vol] 100 mmol/L 95-114 [facility] Serum or plasma glucose ashwini urement (mass/volume)Ordered By: Ajit Pettit on 06-02-2022 Glucose [Mass/Vol] 141 mg/dL 70-100 [facility] Comment on above: ADA recommended refe rence [...] Potassium [Moles/Vol] 4.3 mmol/L 3.5-5.1 [facility] Serum or plasma sodium measu rement (moles/volume)Ordered By: Ajit Petitt on 06-02-2022 Sodium [Moles/Vol] 132 mmol/L 136-146 [facility] Serum or plasma total biliru bin measurement (mass/volume)Ordered By: Ajit Pettit on 06-02-2022 Bilirubin [Mass/Vol] 0.5 mg/dL 0.3-1.2 [facility] Serum or plasma total carbon dioxide measurement (moles/volume)Ordered By: Ajit Pettit on 06-02-2022 CO2 [Moles/Vol] 20.5 mmol/L 22.0-30.0 [facility] Serum or plasma urea nitroge n measurement (mass/volume)Ordered By: Ajit Pettit on 06-02-2022 Urea nitrogen [Mass/Vol] 12 mg/dL 9- [facility] TSH DL <= 0.005 mIU/L QnOrde red By: Ajit Pettit on 06-02-2022 TSH Qn 2.06 m[IU]/L 0.45-5.33 [facility] Basophils Auto (Bld) [#/Vol] Ordered By: Jasmin Velázquez on 05-27-2022 Basophils (Bld) [#/Vol] 0.1 10*3/uL 0.0-0.2 [facility] Basophils/100 WBC Auto (Bld) Ordered By: Jasmin Velázquez on 05-27-2022 Basophils/100 WBC (Bld) 0.6 % . [facility] Blood hemoglobin measurement (mass/volume)Ordered By: Jasmin Velázquez on 05-27-2022 Hemoglobin (Bld) [Mass/Vol] 13.1 g/dL 11.8-15.4 [facility] Blood leukocytes automated c ount (number/volume)Ordered By: Jasmin Velázquez on 05-27-2022 WBC (Bld) [#/Vol] 13.2 10*3/uL 4.5-11.[address] [facility] [address] biopsyOrdered By: Jasmin noel on 05-27-2022 Transferrin [Mass/Vol] 307 mg/dL 180-380 [facility] Eosinophils Auto (Bld) [#/Vo l]Ordered By: Jasmin Velázquez on 05-27-2022 Eosinophils (Bld) [#/Vol] 0.1 10*3/uL 0.0-0.45 [facility] Eosinophils/100 WBC Auto (Bl d)Ordered By: Jasmin Velázquez on 05-27-2022 Eosinophils/100 WBC (Bld) 1.0 % . [facility] Erythrocyte distribution wid th Auto (RBC) [Ratio]Ordered By: Jasmin Velázquez on 05-27-2022 Erythrocyte distribution width (RBC) [Ratio] 13.5 % 11.9-15.3 [facility] Ferritin [Mass/volume] in Se rum or PlasmaOrdered By: Jasmin Velázquez on 05-27-2022 Ferritin [Mass/Vol] 49.6 ng/mL 11-306.8 [facility] Hematocrit Auto (Bld) [Volum e fraction]Ordered By: Jasmin Velázquez on 05-27-2022 Hematocrit (Bld) [Volume fraction] 40.1 % 34.0-46.4 [facility] Iron [Mass/volume] in Serum or PlasmaOrdered By: Jasmin Velázquez on 05-27-2022 Iron [Mass/Vol] 50 ug/dL 40-150 [facility] Iron binding capacity [Mass/ volume] in Serum or PlasmaOrdered By: Jasmin Velázquez on 05-27-2022 Iron binding capacity [Mass/Vol] 430 ug/dL 255-450 [facility] Iron saturation [Mass Fracti on] in Serum or PlasmaOrdered By: Jasmin Velázquez on 05-27-2022 Iron saturation [Mass fraction] 11.0 % 20-50 [facility] Laboratory - Hematology and Cell countsOrdered By: Jasmin Velázquez on 05-27-2022 Nucleated RBC/100 WBC (Bld) [Ratio] 0.1 % 0-0.5 [facility] Lymphocytes Auto (Bld) [#/Vo l]Ordered By: Jasmin Velázquez on 05-27-2022 Lymphocytes (Bld) [#/Vol] 3.3 10*3/uL 1.00-4.8 [facility] Lymphocytes/100 WBC Auto (Bl d)Ordered By: Jasmin Velázquez on 05-27-2022 Lymphocytes/100 WBC (Bld) 24.8 % . [facility] MCH Auto (RBC) [Entitic mass ]Ordered By: Jasmin Velázquez on 05-27-2022 MCH (RBC) [Entitic mass] 30.0 pg 24.7-34.3 [facility] MCHC Auto (RBC) [Mass/Vol]Or dered By: Jasmin Velázquez on 05-27-2022 MCHC (RBC) [Mass/Vol] 32.7 g/dL 32.0-35.0 [facility] MCV Auto (RBC) [Entitic vol] Ordered By: Jasmin Velázquez on 05-27-2022 MCV (RBC) [Entitic vol] 91.5 fL 80-100 [facility] Monocytes Auto (Bld) [#/Vol] Ordered By: Jasmin Velázquez on 05-27-2022 Monocytes (Bld) [#/Vol] 1.0 10*3/uL 0.0-0.8 [facility] Monocytes/100 WBC Auto (Bld) Ordered By: Jasmin Velázquez on 05-27-2022 Monocytes/100 WBC (Bld) 7.6 % . [facility] Neutrophils Auto (Bld) [#/Vo l]Ordered By: Jasmin Velázquez on 05-27-2022 Neutrophils (Bld) [#/Vol] 8.7 10*3/uL 1.8-7.7 [facility] Neutrophils/100 WBC Auto (Bl d)Ordered By: Jasmin Velázquez on 05-27-2022 Neutrophils/100 WBC (Bld) 66.0 % . [facility] No Panel InformationOrdered By: Jasmin Velázquez on 05-27-2022 BCR/abl See comment [facility] Comment on above: See report. Scanned copy available in EMR. Platelet mean volume Auto (B ld) [Entitic vol]Ordered By: Jasmin Velázquez on 05-27-2022 Platelet mean volume (Bld) [Entitic vol] 8.8 fL 6.3-10.7 [facility] Platelets Auto (Bld) [#/Vol] Ordered By: Jasmin Velázquez on 05-27-2022 Platelets (Bld) [#/Vol] 284 10*3/uL 150-450 [facility] RBC Auto (Bld) [#/Vol]Ordere d By: Jasmin Velázquez on 05-27-2022 RBC (Bld) [#/Vol] 4.38 10*6/uL 3.60-5.00 [facility] Basophils Auto (Bld) [#/Vol] Ordered By: Ajit Pettit on 05-07-2022 Basophils (Bld) [#/Vol] 0.1 10*3/uL 0.0-0.2 [facility] Basophils/100 WBC Auto (Bld) Ordered By: Ajit Pettit on 05-07-2022 Basophils/100 WBC (Bld) 0.6 % . [facility] Blood hemoglobin measurement (mass/volume)Ordered By: Ajit Pettit on 05-07-2022 Hemoglobin (Bld) [Mass/Vol] 13.4 g/dL 11.8-15.4 [facility] Blood leukocytes automated c ount (number/volume)Ordered By: Ajit Pettit on 05-07-2022 WBC (Bld) [#/Vol] 16.2 10*3/uL 4.5-11.0 [facility] Eosinophils Auto (Bld) [#/Vo l]Ordered By: Ajit Pettit on 05-07-2022 Eosinophils (Bld) [#/Vol] 0.1 10*3/uL 0.0-0.45 [facility] Eosinophils/100 WBC Auto (Bl d)Ordered By: Ajit Pettit on 05-07-2022 Eosinophils/100 WBC (Bld) 0.9 % . [facility] Erythrocyte distribution wid th Auto (RBC) [Ratio]Ordered By: Ajit Pettit on 05-07-2022 Erythrocyte distribution width (RBC) [Ratio] 13.6 % 11.9-15.3 [facility] Hematocrit Auto (Bld) [Volum e fraction]Ordered By: Ajit Pettit on 05-07-2022 Hematocrit (Bld) [Volume fraction] 40.5 % 34.0-46.4 [facility] - Hematology and Cell countsOrdered By: Ajit Pettit on 05-07-2022 Nucleated RBC/100 WBC (Bld) [Ratio] 0.0 % 0-0.5 [facility] Lymphocytes Auto (Bld) [#/Vo l]Ordered By: Ajit Pettit on 05-07-2022 Lymphocytes (Bld) [#/Vol] 4.7 10*3/uL 1.00-4.8 [facility] Lymphocytes/100 WBC Auto (Bl d)Ordered By: Ajit Pettit on 05-07-2022 Lymphocytes/100 WBC (Bld) 28.9 % . [facility] MCH Auto (RBC) [Entitic mass ]Ordered By: Ajit Pettit on 05-07-2022 MCH (RBC) [Entitic mass] 30.7 pg 24.7-34.3 [facility] MCHC Auto (RBC) [Mass/Vol]Or dered By: Ajit Pettit on 05-07-2022 MCHC (RBC) [Mass/Vol] 33.2 g/dL 32.0-35.0 [facility] MCV Auto (RBC) [Entitic vol] Ordered By: Ajit Pettit on 05-07-2022 MCV (RBC) [Entitic vol] 92.5 fL 80-100 [facility] Monocytes Auto (Bld) [#/Vol] Ordered By: Ajit Pettit on 05-07-2022 Monocytes (Bld) [#/Vol] 1.1 10*3/uL 0.0-0.8 [facility] Monocytes/100 WBC Auto (Bld) Ordered By: Ajit Pettit on 05-07-2022 Monocytes/100 WBC (Bld) 6.8 % . [facility] Neutrophils Auto (Bld) [#/Vo l]Ordered By: Ajit Pettit on 05-07-2022 Neutrophils (Bld) [#/Vol] 10.2 10*3/uL 1.8-7.7 [facility] Neutrophils/100 WBC Auto (Bl d)Ordered By: Ajit Pettit on 05-07-2022 Neutrophils/100 WBC (Bld) 62.8 % . [facility] No Panel InformationOrdered By: Ajit Pettit on 05-07-2022 Platelet Estimate Normal Normal [facility] Platelet Morphology Comment Normal Normal [facility] Platelet mean volume Auto (B ld) [Entitic vol]Ordered By: Ajit Pettit on 05-07-2022 Platelet mean volume (Bld) [Entitic vol] 8.0 fL 6.3-10.7 [facility] Platelets Auto (Bld) [#/Vol] Ordered By: Ajit Pettit on 05-07-2022 Platelets (Bld) [#/Vol] 369 10*3/uL 150-450 [facility] RBC Auto (Bld) [#/Vol]Ordere d By: Ajit Pettit on 05-07-2022 RBC (Bld) [#/Vol] 4.38 10*6/uL 3.60-5.00 [facility] RBC morphologyOrdered By: Cole Pettit on 05-07-2022 RBC morphology finding Nom (Bld) Normal [facility] Bacterial blood cultureOrder ed By: Rod Alvarado on 05-06-2022 Bacteria identified Cx Nom (Bld) NO GROWTH 5 DAYS [facility] Bacteria identified Cx Nom (Bld) NO GROWTH 5 DAYS [facility] Bacterial blood cultureOrder ed By: Ajit Pettit on 05-06-2022 Bacteria identified Cx Nom (Bld) NO GROWTH 5 DAYS [facility] Urine culture routineOrdered By: Ajit Pettit on 05-02-2022 Bacteria identified Cx Nom (U) 2 Days [facility] Activated partial thrombopla stin time (aPTT) in platelet poor plasma by coagulation aOrdered By: Rod Alvarado on 05-01-2022 aPTT Coag (PPP) [Time] 29.2 s 25.1-36.5 [facility] Automated epithelial cells c ount in urine sediment (number/area)Ordered By: Rod Alvarado on 05-01-2022 Epithelial cells Auto (Urine sed) [#/Area] 5-9 [HPF] 0-2 [facility] Automated erythrocytes count in urine sediment (number/area)Ordered By: Rod Alvarado on 05-01-2022 RBC Auto (Urine sed) [#/Area] 1-2 [HPF] 0-4 [facility] Automated leukocytes count i n urine sediment (number/area)Ordered By: Rod Alvarado on 05-01-2022 WBC Auto (Urine sed) [#/Area] 1-2 [HPF] 0-4 [facility] Basophils Auto (Bld) [#/Vol] Ordered By: Rod Alvarado on 05-01-2022 Basophils (Bld) [#/Vol] 0.2 10*3/uL 0.0-0.2 [facility] Basophils Auto (Bld) [#/Vol] Ordered By: Ajit Pettit on 05-01-2022 Basophils (Bld) [#/Vol] 0.1 10*3/uL 0.0-0.2 [facility] Basophils/100 WBC Auto (Bld) Ordered By: Rod Alvarado on 05-01-2022 Basophils/100 WBC (Bld) 1.0 % . [facility] Basophils/100 WBC Auto (Bld) Ordered By: Ajit Pettit on 05-01-2022 Basophils/100 WBC (Bld) 0.7 % . [facility] Bilirubin Auto test strip Ql (U)Ordered By: Rod Alvarado on 05-01-2022 Bilirubin Ql (U) 1+ Negative [facility] Blood hemoglobin measurement (mass/volume)Ordered By: Rod Alvarado on 05-01-2022 Hemoglobin (Bld) [Mass/Vol] 13.1 g/dL 11.8-15.4 [facility] Blood hemoglobin measurement (mass/volume)Ordered By: Ajit Pettit on 05-01-2022 Hemoglobin (Bld) [Mass/Vol] 12.9 g/dL 11.8-15.4 [facility] Blood leukocytes automated c ount (number/volume)Ordered By: Rod Alvarado on 05-01-2022 WBC (Bld) [#/Vol] 15.9 10*3/uL 4.5-11.0 [facility] Blood leukocytes automated c ount (number/volume)Ordered By: Ajit Pettit on 05-01-2022 WBC (Bld) [#/Vol] 14.7 10*3/uL 4.5-11.0 [facility] Body fluid albumin measureme nt (mass/volume)Ordered By: Ajit Pettit on 05-01-2022 Albumin (Body fld) [Mass/Vol] 3.6 g/dL 3.2-5.5 [facility] Creatinine and Glomerular fi ltration rate.predicted panel (S/P/Bld)Ordered By: Rod Alvarado on 05-01-2022 Creatinine [Mass/Vol] 0.58 mg/dL 0.44-1.03 [facility] Creatinine and Glomerular fi ltration rate.predicted panel (S/P/Bld)Ordered By: Ajit Pettit on 05-01-2022 Creatinine [Mass/Vol] 0.58 mg/dL 0.44-1.03 [facility] Eosinophils Auto (Bld) [#/Vo l]Ordered By: Rod Alvarado on 05-01-2022 Eosinophils (Bld) [#/Vol] 0.2 10*3/uL 0.0-0.45 [facility] Eosinophils Auto (Bld) [#/Vo l]Ordered By: Ajit Pettit on 05-01-2022 Eosinophils (Bld) [#/Vol] 0.1 10*3/uL 0.0-0.45 [facility] Eosinophils/100 WBC Auto (Bl d)Ordered By: Rod Alvarado on 05-01-2022 Eosinophils/100 WBC (Bld) 1.0 % . [facility] Eosinophils/100 WBC Auto (Bl d)Ordered By: Ajit Pettit on 05-01-2022 Eosinophils/100 WBC (Bld) 0.9 % . [facility] Erythrocyte distribution wid th Auto (RBC) [Ratio]Ordered By: Rod Alvarado on 05-01-2022 Erythrocyte distribution width (RBC) [Ratio] 13.6 % 11.9-15.3 [facility] Erythrocyte distribution wid th Auto (RBC) [Ratio]Ordered By: Ajit Pettit on 05-01-2022 Erythrocyte distribution width (RBC) [Ratio] 13.6 % 11.9-15.3 [facility] Estimated glomerular filtrat ion rate (GFR) non- AmericanOrdered By: Rod Alvarado on 05-01-2022 GFR/1.73 sq M.predicted among non-blacks MDRD (S/P/Bld) [Vol rate/Area] > 60 mL/Min [facility] Estimated glomerular filtrat ion rate (GFR) non- AmericanOrdered By: Ajit Pettit on 05-01-2022 GFR/1.73 sq M.predicted among non-blacks MDRD (S/P/Bld) [Vol rate/Area] > 60 mL/Min [facility] Globulin Calc (S) [Mass/Vol] Ordered By: Ajit Pettit on 05-01-2022 Globulin (S) [Mass/Vol] 2.6 g/dL [facility] Hematocrit Auto (Bld) [Volum e fraction]Ordered By: Rod Alvarado on 05-01-2022 Hematocrit (Bld) [Volume fraction] 39.0 % 34.0-46.4 [facility] Hematocrit Auto (Bld) [Volum e fraction]Ordered By: Ajit Pettit on 05-01-2022 Hematocrit (Bld) [Volume fraction] 39.0 % 34.0-46.4 [facility] Ketones Auto test strip (U) [Mass/Vol]Ordered By: Rod Alvarado on 05-01-2022 Ketones (U) [Mass/Vol] Trace Negative [facility] - Chemistry and C hemistry - challengeOrdered By: Rod Alvarado on 05-01-2022 Lipase [Catalytic activity/Vol] 37.0 U/L 22-51 [facility] - CoagulationOrde red By: Rod Alvarado on 05-01-2022 PT Coag (PPP) [Time] 9.6 s 9.0-12.9 [facility] - Hematology and Cell countsOrdered By: Rod Alvarado on 05-01-2022 Nucleated RBC/100 WBC (Bld) [Ratio] 0.0 % 0-0.5 [facility] - Hematology and Cell countsOrdered By: Ajit Pettit on 05-01-2022 Nucleated RBC/100 WBC (Bld) [Ratio] 0.0 % 0-0.5 [facility] Lymphocytes Auto (Bld) [#/Vo l]Ordered By: Rod Alvarado on 05-01-2022 Lymphocytes (Bld) [#/Vol] 4.3 10*3/uL 1.00-4.8 [facility] Lymphocytes Auto (Bld) [#/Vo l]Ordered By: Ajit Pettit on 05-01-2022 Lymphocytes (Bld) [#/Vol] 3.6 10*3/uL 1.00-4.8 [facility] Lymphocytes/100 WBC Auto (Bl d)Ordered By: Rod Alvarado on 05-01-2022 Lymphocytes/100 WBC (Bld) 26.9 % . [facility] Lymphocytes/100 WBC Auto (Bl d)Ordered By: Ajit Pettit on 05-01-2022 Lymphocytes/100 WBC (Bld) 24.8 % . [facility] MCH Auto (RBC) [Entitic mass ]Ordered By: Rod Alvarado on 05-01-2022 MCH (RBC) [Entitic mass] 30.5 pg 24.7-34.3 [facility] MCH Auto (RBC) [Entitic mass ]Ordered By: Ajit Pettit on 05-01-2022 MCH (RBC) [Entitic mass] 30.5 pg 24.7-34.3 [facility] MCHC Auto (RBC) [Mass/Vol]Or dered By: Rod Alvarado on 05-01-2022 MCHC (RBC) [Mass/Vol] 33.5 g/dL 32.0-35.0 [facility] MCHC Auto (RBC) [Mass/Vol]Or dered By: Ajit Pettit on 05-01-2022 MCHC (RBC) [Mass/Vol] 32.9 g/dL 32.0-35.0 [facility] MCV Auto (RBC) [Entitic vol] Ordered By: Rod Alvarado on 05-01-2022 MCV (RBC) [Entitic vol] 91.0 fL 80-100 [facility] MCV Auto (RBC) [Entitic vol] Ordered By: Ajit Pettit on 05-01-2022 MCV (RBC) [Entitic vol] 92.6 fL 80-100 [facility] Monocytes Auto (Bld) [#/Vol] Ordered By: Rod Alvarado on 05-01-2022 Monocytes (Bld) [#/Vol] 1.1 10*3/uL 0.0-0.8 [facility] Monocytes Auto (Bld) [#/Vol] Ordered By: Ajit Pettit on 05-01-2022 Monocytes (Bld) [#/Vol] 1.1 10*3/uL 0.0-0.8 [facility] Monocytes/100 WBC Auto (Bld) Ordered By: Rod Alvarado on 05-01-2022 Monocytes/100 WBC (Bld) 6.7 % . [facility] Monocytes/100 WBC Auto (Bld) Ordered By: Ajit Pettit on 05-01-2022 Monocytes/100 WBC (Bld) 7.2 % . [facility] Neutrophils Auto (Bld) [#/Vo l]Ordered By: Rod Alvarado on 05-01-2022 Neutrophils (Bld) [#/Vol] 10.3 10*3/uL 1.8-7.7 [facility] Neutrophils Auto (Bld) [#/Vo l]Ordered By: Ajit Pettit on 05-01-2022 Neutrophils (Bld) [#/Vol] 9.8 10*3/uL 1.8-7.7 [facility] Neutrophils/100 WBC Auto (Bl d)Ordered By: Rod Alvarado on 05-01-2022 Neutrophils/100 WBC (Bld) 64.4 % . [facility] Neutrophils/100 WBC Auto (Bl d)Ordered By: Ajit Pettit on 05-01-2022 Neutrophils/100 WBC (Bld) 66.4 % . [facility] No Panel InformationOrdered By: Rod Alvarado on 05-01-2022 Estimated GFR () > 60 mL/Min [facility] Comment on above: GFR estimated refere nce range: According to KDOQI guidelines, <60 ml/min/1.73m2 is sufficient to diagnose a patient with chronic kidney disease. Pharmacy Creatinine Clearance (Chem 128.97 [facility] No Panel InformationOrdered By: Ajit Pettit on 05-01-2022 Estimated GFR () > 60 mL/Min [facility] Comment on above: GFR estimated refere nce range: According to KDOQI guidelines, <60 ml/min/1.73m2 is sufficient to diagnose a patient with chronic kidney disease. Pharmacy Creatinine Clearance (Chem N/A [facility] Platelet mean volume Auto (B ld) [Entitic vol]Ordered By: Rod Alvarado on 05-01-2022 Platelet mean volume (Bld) [Entitic vol] 7.6 fL 6.3-10.7 [facility] Platelet mean volume Auto (B ld) [Entitic vol]Ordered By: Ajit Pettit on 05-01-2022 Platelet mean volume (Bld) [Entitic vol] 8.1 fL 6.3-10.7 [facility] Platelet poor plasma interna tional normalized ratio (INR) by coagulation assay (relatOrdered By: Rod Alvarado on 05-01-2022 INR Coag (PPP) [Relative time] 0.9 {INR} [facility] Comment on above: INR Therapeutic Rang [...] 05-01-2022 Platelets (Bld) [#/Vol] 310 10*3/uL 150-450 [facility] Platelets Auto (Bld) [#/Vol] Ordered By: Ajit Pettit on 05-01-2022 Platelets (Bld) [#/Vol] 284 10*3/uL 150-450 [facility] Protein Auto test strip (U) [Mass/Vol]Ordered By: Rod Alvarado on 05-01-2022 Protein (U) [Mass/Vol] Negative Negative [facility] Protein [Mass/volume] in Ser um or PlasmaOrdered By: Ajit Pettit on 05-01-2022 Protein [Mass/Vol] 6.2 g/dL 6.1-7.9 [facility] RBC Auto (Bld) [#/Vol]Ordere d By: Rod Alvarado on 05-01-2022 RBC (Bld) [#/Vol] 4.29 10*6/uL 3.60-5.00 [facility] RBC Auto (Bld) [#/Vol]Ordere d By: Ajit Pettit on 05-01-2022 RBC (Bld) [#/Vol] 4.22 10*6/uL 3.60-5.00 [facility] Serum or plasma alanine george otransferase measurement without P-5'-P (enzymatic activiOrdered By: Ajit Pettit on 05-01-2022 ALT No additional P-5'-P [Catalytic activity/Vol] 17 U/L 10-60 [facility] Serum or plasma albumin/glob ulin mass ratioOrdered By: Ajit Pettit on 05-01-2022 Albumin/Globulin [Mass ratio] 1.4 {ratio} [facility] Serum or plasma alkaline lalo sphatase measurement (enzymatic activity/volume)Ordered By: Ajit Pettit on 05-01-2022 ALP [Catalytic activity/Vol] 52 U/L 32-92 [facility] Serum or plasma aspartate am inotransferase measurement (enzymatic activity/volume)Ordered By: Ajit Pettit on 05-01-2022 AST [Catalytic activity/Vol] 19 U/L 10-42 [facility] Serum or plasma calcium ashwini urement (mass/volume)Ordered By: Rod Alvarado on 05-01-2022 Calcium [Mass/Vol] 9.0 mg/dL 8.2-10.2 [facility] Serum or plasma calcium ashwini urement (mass/volume)Ordered By: Ajit Pettit on 05-01-2022 Calcium [Mass/Vol] 9.2 mg/dL 8.2-10.2 [facility] Serum or plasma chloride jett surement (moles/volume)Ordered By: Rod Alvarado on 05-01-2022 Chloride [Moles/Vol] 101 mmol/L 95-114 [facility] Serum or plasma chloride jett surement (moles/volume)Ordered By: Ajit Pettit on 05-01-2022 Chloride [Moles/Vol] 100 mmol/L 95-114 [facility] Serum or plasma glucose ashwini urement (mass/volume)Ordered By: Rod Alvarado on 05-01-2022 Glucose [Mass/Vol] 110 mg/dL 70-100 [facility] Comment on above: ADA recommended refe rence [...] on 05-01-2022 Glucose [Mass/Vol] 117 mg/dL 70-100 [facility] Comment on above: ADA recommended refe rence [...] Potassium [Moles/Vol] 4.4 mmol/L 3.5-5.1 [facility] Serum or plasma potassium me asurement (moles/volume)Ordered By: Ajit Pettit on 05-01-2022 Potassium [Moles/Vol] 4.4 mmol/L 3.5-5.1 [facility] Serum or plasma sodium measu rement (moles/volume)Ordered By: Rod Alvarado on 05-01-2022 Sodium [Moles/Vol] 135 mmol/L 136-146 [facility] Serum or plasma sodium measu rement (moles/volume)Ordered By: Ajit Pettit on 05-01-2022 Sodium [Moles/Vol] 133 mmol/L 136-146 [facility] Serum or plasma total biliru bin measurement (mass/volume)Ordered By: Rod Alvarado on 05-01-2022 Bilirubin [Mass/Vol] 0.7 mg/dL 0.3-1.2 [facility] Serum or plasma total biliru bin measurement (mass/volume)Ordered By: Ajit Pettit on 05-01-2022 Bilirubin [Mass/Vol] 0.4 mg/dL 0.3-1.2 [facility] Serum or plasma total carbon dioxide measurement (moles/volume)Ordered By: Rod Alvarado on 05-01-2022 CO2 [Moles/Vol] 25.9 mmol/L 22.0-30.0 [facility] Serum or plasma total carbon dioxide measurement (moles/volume)Ordered By: Ajit Pettit on 05-01-2022 CO2 [Moles/Vol] 23.1 mmol/L 22.0-30.0 [facility] Serum or plasma urea nitroge n measurement (mass/volume)Ordered By: Rod Alvarado on 05-01-2022 Urea nitrogen [Mass/Vol] 11 mg/dL 06-26 [facility] Serum or plasma urea nitroge n measurement (mass/volume)Ordered By: Ajit Pettit on 05-01-2022 Urea nitrogen [Mass/Vol] 14 mg/dL 06-26 [facility] Urine appearanceOrdered By: Rod Alvarado on 05-01-2022 Appearance (U) Clear Clear [facility] Urine bacteria detection by automated methodOrdered By: Rod Alvarado on 05-01-2022 Bacteria Auto Ql (U) 1+ None Seen [facility] Urine colorOrdered By: Shady Alvarado on 05-01-2022 Color (U) Yellow Yellow [facility] Urine glucose measurement by automated test strip (mass/volume)Ordered By: Rod Alvarado on 05-01-2022 Glucose Auto test strip (U) [Mass/Vol] Normal mg/dL Normal [facility] Urine hemoglobin detection b y automated test stripOrdered By: Rod Alvarado on 05-01-2022 Hemoglobin Auto test strip Ql (U) Negative Negative [facility] Urine lactic acid measuremen tOrdered By: Rod Alvarado on 05-01-2022 Lactate (U) [Moles/Vol] 1.7 mmol/L 0.5-2.2 [facility] Urine lactic acid measuremen tOrdered By: Ajit Pettit on 05-01-2022 Lactate (U) [Moles/Vol] 2.5 mmol/L 0.5-2.2 [facility] Comment on above: Results called at 1022 on 05/01/22 Results calledat 102 2 on 05/01/22 Urine leukocyte esterase det ection by automated test stripOrdered By: Rod Alvarado on 05-01-2022 Leukocyte esterase Auto test strip Ql (U) 2+ Negative [facility] Urine nitrite detection by a utomated test stripOrdered By: Rod Alvarado on 05-01-2022 Nitrite Auto test strip Ql (U) Negative Negative [facility] Urobilinogen Auto test strip (U) [Mass/Vol]Ordered By: Rodramo Alvarado on 05-01-2022 Urobilinogen (U) [Mass/Vol] Normal mg/dL Normal [facility] pH Auto test strip (U)Ordere d By: Rod Alvarado on 05-01-2022 pH (U) 1.030 [pH] 1.001-1.03 0 [facility] pH (U) 6.0 [pH] 5.0-9.0 [facility] Basophils Auto (Bld) [#/Vol] Ordered By: Ajit Pettit on 04-30-2022 Basophils (Bld) [#/Vol] 0.2 10*3/uL 0.0-0.2 [facility] Basophils/100 WBC Auto (Bld) Ordered By: Ajit Pettit on 04-30-2022 Basophils/100 WBC (Bld) 0.9 % . [facility] Blood hemoglobin measurement (mass/volume)Ordered By: Ajit Pettit on 04-30-2022 Hemoglobin (Bld) [Mass/Vol] 13.9 g/dL 11.8-15.4 [facility] Blood leukocytes automated c ount (number/volume)Ordered By: Ajit Pettit on 04-30-2022 WBC (Bld) [#/Vol] 19.7 10*3/uL 4.5-11.0 [facility] Body fluid albumin measureme nt (mass/volume)Ordered By: Ajit Pettit on 04-30-2022 Albumin (Body fld) [Mass/Vol] 4.1 g/dL 3.2-5.[address] [facility] [address] biopsyOrdered By: Ajit corrales on 04-30-2022 Transferrin [Mass/Vol] 352 mg/dL 180-380 [facility] Cholesterol [Mass/volume] in Serum or PlasmaOrdered By: Ajit Pettit on 04-30-2022 Cholesterol [Mass/Vol] 260 mg/dL 140-200 [facility] Comment on above: Chol less than 200 m g/dl low risk Chol 201-239 mg/dl borderline risk Chol 240 mg/dl and greater high risk Chol less than 200 m g/dl low riskChol 201-239 mg/dl borderline riskChol 240 mg/dl and greater high risk Cholesterol in LDL Calc [Mas s/Vol]Ordered By: Ajit Pettit on 04-30-2022 Cholesterol in LDL [Mass/Vol] 134 mg/dL 0-100 [facility] Comment on above: LDL ATP III [...] in VLDL Calc [Ma ss/Vol]Ordered By: Ajit Pettti on 04-30-2022 Cholesterol in VLDL [Mass/Vol] 68 mg/dL [facility] Creatinine and Glomerular fi ltration rate.predicted panel (S/P/Bld)Ordered By: Ajit Pettit on 04-30-2022 Creatinine [Mass/Vol] 0.56 mg/dL 0.44-1.03 [facility] Eosinophils Auto (Bld) [#/Vo l]Ordered By: Ajit Pettit on 04-30-2022 Eosinophils (Bld) [#/Vol] 0.2 10*3/uL 0.0-0.45 [facility] Eosinophils/100 WBC Auto (Bl d)Ordered By: Ajit Pettit on 04-30-2022 Eosinophils/100 WBC (Bld) 1.0 % . [facility] Erythrocyte distribution wid th Auto (RBC) [Ratio]Ordered By: Ajit Pettit on 04-30-2022 Erythrocyte distribution width (RBC) [Ratio] 13.5 % 11.9-15.3 [facility] Estimated glomerular filtrat ion rate (GFR) non- AmericanOrdered By: Ajit Pettit on 04-30-2022 GFR/1.73 sq M.predicted among non-blacks MDRD (S/P/Bld) [Vol rate/Area] > 60 mL/Min [facility] Globulin Calc (S) [Mass/Vol] Ordered By: Ajit Pettit on 04-30-2022 Globulin (S) [Mass/Vol] 2.9 g/dL [facility] Hematocrit Auto (Bld) [Volum e fraction]Ordered By: Ajit Pettit on 04-30-2022 Hematocrit (Bld) [Volume fraction] 42.9 % 34.0-46.4 [facility] Iron [Mass/volume] in Serum or PlasmaOrdered By: Ajit Pettit on 04-30-2022 Iron [Mass/Vol] 51 ug/dL 40-150 [facility] Iron binding capacity [Mass/ volume] in Serum or PlasmaOrdered By: Ajit Pettit on 04-30-2022 Iron binding capacity [Mass/Vol] 493 ug/dL 255-450 [facility] Iron saturation [Mass Fracti on] in Serum or PlasmaOrdered By: Ajit Pettit on 04-30-2022 Iron saturation [Mass fraction] 10.0 % 20-50 [facility] - Chemistry and C hemistry - challengeOrdered By: Ajit Pettit on 04-30-2022 Cobalamin (Vitamin B12) [Mass/Vol] 472 pg/mL 180-914 [facility] - Hematology and Cell countsOrdered By: Ajit Pettit on 04-30-2022 Nucleated RBC/100 WBC (Bld) [Ratio] 0.2 % 0-0.5 [facility] Lymphocytes Auto (Bld) [#/Vo l]Ordered By: Ajit Pettit on 04-30-2022 Lymphocytes (Bld) [#/Vol] 4.1 10*3/uL 1.00-4.8 [facility] Lymphocytes/100 WBC Auto (Bl d)Ordered By: Ajit Pettit on 04-30-2022 Lymphocytes/100 WBC (Bld) 20.8 % . [facility] MCH Auto (RBC) [Entitic mass ]Ordered By: Ajit Pettit on 04-30-2022 MCH (RBC) [Entitic mass] 30.0 pg 24.7-34.3 [facility] MCHC Auto (RBC) [Mass/Vol]Or dered By: Ajit Pettit on 04-30-2022 MCHC (RBC) [Mass/Vol] 32.4 g/dL 32.0-35.0 [facility] MCV Auto (RBC) [Entitic vol] Ordered By: Ajit Pettit on 04-30-2022 MCV (RBC) [Entitic vol] 92.7 fL 80-100 [facility] Monocytes Auto (Bld) [#/Vol] Ordered By: Ajit Pettit on 04-30-2022 Monocytes (Bld) [#/Vol] 1.3 10*3/uL 0.0-0.8 [facility] Monocytes/100 WBC Auto (Bld) Ordered By: Ajit Pettit on 04-30-2022 Monocytes/100 WBC (Bld) 6.8 % . [facility] Neutrophils Auto (Bld) [#/Vo l]Ordered By: Ajit Pettit on 04-30-2022 Neutrophils (Bld) [#/Vol] 13.9 10*3/uL 1.8-7.7 [facility] Neutrophils/100 WBC Auto (Bl d)Ordered By: Ajit Pettit on 04-30-2022 Neutrophils/100 WBC (Bld) 70.5 % . [facility] No Panel InformationOrdered By: Ajit Pettit on 04-30-2022 25-Hydroxy Vitamin D Total 19.9 ng/mL 30-100 [facility] Comment on above: VITAMIN D STATUS [...] 96(7):1911-30. Estimated GFR () > 60 mL/Min [facility] Comment on above: GFR estimated refere nce range: According to KDOQI guidelines, <60 ml/min/1.73m2 is sufficient to diagnose a patient with chronic kidney disease. Pharmacy Creatinine Clearance (Chem N/A [facility] Valproic Acid (Depakene) Level 59.8 ug/mL 50.0-100.0 [facility] Comment on above: Last dose: - Platelet mean volume Auto (B ld) [Entitic vol]Ordered By: Ajit Pettit on 04-30-2022 Platelet mean volume (Bld) [Entitic vol] 8.7 fL 6.3-10.7 [facility] Platelets Auto (Bld) [#/Vol] Ordered By: Ajit Pettit on 04-30-2022 Platelets (Bld) [#/Vol] 257 10*3/uL 150-450 [facility] Protein [Mass/volume] in Ser um or PlasmaOrdered By: Ajit Pettit on 04-30-2022 Protein [Mass/Vol] 7.0 g/dL 6.1-7.9 [facility] RBC Auto (Bld) [#/Vol]Ordere d By: Ajit Pettit on 04-30-2022 RBC (Bld) [#/Vol] 4.62 10*6/uL 3.60-5.00 [facility] Serum or plasma alanine george otransferase measurement without P-5'-P (enzymatic activiOrdered By: Ajit Pettit on 04-30-2022 ALT No additional P-5'-P [Catalytic activity/Vol] 20 U/L 10-60 [facility] Serum or plasma albumin/glob ulin mass ratioOrdered By: Ajit Pettit on 04-30-2022 Albumin/Globulin [Mass ratio] 1.4 {ratio} [facility] Serum or plasma alkaline lalo sphatase measurement (enzymatic activity/volume)Ordered By: Ajit Pettit on 04-30-2022 ALP [Catalytic activity/Vol] 54 U/L 32-92 [facility] Serum or plasma aspartate am inotransferase measurement (enzymatic activity/volume)Ordered By: Ajit Pettit on 04-30-2022 AST [Catalytic activity/Vol] 22 U/L 10-42 [facility] Serum or plasma calcium ashwini urement (mass/volume)Ordered By: Ajit Pettit on 04-30-2022 Calcium [Mass/Vol] 9.4 mg/dL 8.2-10.2 [facility] Serum or plasma chloride jett surement (moles/volume)Ordered By: Ajit Pettit on 04-30-2022 Chloride [Moles/Vol] 102 mmol/L 95-114 [facility] Serum or plasma glucose ashwini urement (mass/volume)Ordered By: Ajit Pettit on 04-30-2022 Glucose [Mass/Vol] 115 mg/dL 70-100 [facility] Comment on above: ADA recommended refe rence [...] Cholesterol in HDL [Mass/Vol] 57 mg/dL 35-85 [facility] Comment on above: HDL CHOL ATP-III CLA SSIFICATION Cardiovascular Risk HDL > or equal to 60 mg/dL LOW HDL < 40 mg/dL HIGH HDL CHOL ATP-III CLA SSIFICATION Cardiovascular RiskHDL > or equal to 60 mg/dL LOWHDL < 40 mg/dL HIGH Serum or plasma potassium me asurement (moles/volume)Ordered By: Ajit Pettit on 04-30-2022 Potassium [Moles/Vol] 4.8 mmol/L 3.5-5.1 [facility] Serum or plasma sodium measu rement (moles/volume)Ordered By: Ajit Pettit on 04-30-2022 Sodium [Moles/Vol] 135 mmol/L 136-146 [facility] Serum or plasma total biliru bin measurement (mass/volume)Ordered By: Ajit Pettit on 04-30-2022 Bilirubin [Mass/Vol] 0.2 mg/dL 0.3-1.2 [facility] Serum or plasma total carbon dioxide measurement (moles/volume)Ordered By: Ajit Pettit on 04-30-2022 CO2 [Moles/Vol] 24.2 mmol/L 22.0-30.0 [facility] Serum or plasma total choles terol/high density lipoprotein (HDL) cholesterol mass ratOrdered By: Ajit Pettit on 04-30-2022 Cholesterol.total/Chol esterol in HDL [Mass ratio] 4.6 {ratio} <5.0 [facility] Serum or plasma urea nitroge n measurement (mass/volume)Ordered By: Ajit Pettit on 04-30-2022 Urea nitrogen [Mass/Vol] 12 mg/dL 9-23 [facility] TSH DL <= 0.005 mIU/L QnOrde red By: Ajit Pettit on 04-30-2022 TSH Qn 2.89 m[IU]/L 0.45-5.33 [facility] Triglyceride [Mass/volume] i n Serum or PlasmaOrdered By: Ajit Pettit on 04-30-2022 Triglyceride [Mass/Vol] 344 mg/dL 35-149 [facility] Comment on above: TRIG [...] 01-21-2021 Basophils (Bld) [#/Vol] 0.1 10*3/uL 0.0-0.2 [facility] Basophils/100 WBC Auto (Bld) on 01-21-2021 Basophils/100 WBC (Bld) 1.0 % [facility] Blood hemoglobin measurement (mass/volume)on 01-21-2021 Hemoglobin (Bld) [Mass/Vol] 13.0 g/dL 11.8-15.4 [facility] Blood leukocytes automated c ount (number/volume)on 01-21-2021 WBC (Bld) [#/Vol] 13.2 10*3/uL 4.5-11.0 [facility] Body fluid albumin measureme nt (mass/volume)on 01-21-2021 Albumin (Body fld) [Mass/Vol] 3.7 g/dL 3.2-5.5 [facility] Creatinine and Glomerular fi ltration rate.predicted panel (S/P/Bld)on 01-21-2021 Creatinine [Mass/Vol] 0.67 mg/dL 0.44-1.03 [facility] Eosinophils Auto (Bld) [#/Vo l]on 01-21-2021 Eosinophils (Bld) [#/Vol] 0.1 10*3/uL 0.0-0.45 [facility] Eosinophils/100 WBC Auto (Bl d)on 01-21-2021 Eosinophils/100 WBC (Bld) 0.8 % [facility] Erythrocyte distribution wid th Auto (RBC) [Ratio]on 01-21-2021 Erythrocyte distribution width (RBC) [Ratio] 13.1 % 11.9-15.3 [facility] Estimated glomerular filtrat ion rate (GFR) non- Americanon 01-21-2021 GFR/1.73 sq M.predicted among non-blacks MDRD (S/P/Bld) [Vol rate/Area] > 60 mL/Min [facility] Globulin Calc (S) [Mass/Vol] on 01-21-2021 Globulin (S) [Mass/Vol] 2.7 g/dL [facility] Hematocrit Auto (Bld) [Volum e fraction]on 01-21-2021 Hematocrit (Bld) [Volume fraction] 38.1 % 34.0-46.4 [facility] Laboratory - Chemistry and C hemistry - challengeon 01-21-2021 Cobalamin (Vitamin B12) [Mass/Vol] 341 pg/mL 180-914 [facility] Laboratory - Hematology and Cell countson 01-21-2021 Nucleated RBC/100 WBC (Bld) [Ratio] 0.2 % 0-0.5 [facility] Lymphocytes Auto (Bld) [#/Vo l]on 01-21-2021 Lymphocytes (Bld) [#/Vol] 3.9 10*3/uL 1.00-4.8 [facility] Lymphocytes/100 WBC Auto (Bl d)on 01-21-2021 Lymphocytes/100 WBC (Bld) 29.4 % [facility] MCH Auto (RBC) [Entitic mass ]on 01-21-2021 MCH (RBC) [Entitic mass] 30.6 pg 24.7-34.3 [facility] MCHC Auto (RBC) [Mass/Vol]on 01-21-2021 MCHC (RBC) [Mass/Vol] 34.1 g/dL 32.0-35.0 [facility] MCV Auto (RBC) [Entitic vol] on 01-21-2021 MCV (RBC) [Entitic vol] 89.6 fL 80-100 [facility] Monocytes Auto (Bld) [#/Vol] on 01-21-2021 Monocytes (Bld) [#/Vol] 1.1 10*3/uL 0.0-0.8 [facility] Monocytes/100 WBC Auto (Bld) on 01-21-2021 Monocytes/100 WBC (Bld) 8.6 % [facility] Neutrophils Auto (Bld) [#/Vo l]on 01-21-2021 Neutrophils (Bld) [#/Vol] 8.0 10*3/uL 1.8-7.7 [facility] Neutrophils/100 WBC Auto (Bl d)on 01-21-2021 Neutrophils/100 WBC (Bld) 60.2 % [facility] No Panel Informationon 01-21 25-Hydroxy Vitamin D Total 25.5 ng/mL 30-100 [facility] Comment on above: VITAMIN D STATUS 25( [place])VITAMIN D RANGE (ng/mL) Deficient <20 Insufficient 20 to <30Sufficient 30 to 100Reference: Jovanni ENCINAS,Dominique ARORA, Gillian NINA, et al. Evaluation,treatment, and prevention of vitamin D deficiency; an Endocrine Society clinical practice guideline. JCEM. 2010; 96(7):1911-30. Estimated GFR () > 60 mL/Min [facility] Comment on above: GFR estimated refere nce range: According to KDOQI guidelines, <60 ml/min/1.73m2 is sufficient to diagnose a patient with chronic kidney disease. Pharmacy Creatinine Clearance (Chem N/A [facility] Valproic Acid (Depakene) Level 74.3 ug/mL 50.0-100.0 [facility] Comment on above: Last dose: - Platelet mean volume Auto (B ld) [Entitic vol]on 01-21-2021 Platelet mean volume (Bld) [Entitic vol] 9.1 fL 6.3-10.7 [facility] Platelets Auto (Bld) [#/Vol] on 01-21-2021 Platelets (Bld) [#/Vol] 261 10*3/uL 150-450 [facility] Protein [Mass/volume] in Ser um or Plasmaon 01-21-2021 Protein [Mass/Vol] 6.4 g/dL 6.1-7.9 [facility] RBC Auto (Bld) [#/Vol]on RBC (Bld) [#/Vol] 4.25 10*6/uL 3.60-5.00 [facility] Serum or plasma alanine george otransferase measurement without P-5'-P (enzymatic activion 01-21-2021 ALT No additional P-5'-P [Catalytic activity/Vol] 14 U/L 10-60 [facility] Serum or plasma albumin/glob ulin mass ratioon 01-21-2021 Albumin/Globulin [Mass ratio] 1.4 {ratio} [facility] Serum or plasma alkaline lalo sphatase measurement (enzymatic activity/volume)on 01-21-2021 ALP [Catalytic activity/Vol] 50 U/L 32-92 [facility] Serum or plasma aspartate am inotransferase measurement (enzymatic activity/volume)on 01-21-2021 AST [Catalytic activity/Vol] 17 U/L 10-42 [facility] Serum or plasma calcium ashwini urement (mass/volume)on 01-21-2021 Calcium [Mass/Vol] 9.5 mg/dL 8.2-10.2 [facility] Serum or plasma chloride jett surement (moles/volume)on 01-21-2021 Chloride [Moles/Vol] 96 mmol/L 95-114 [facility] Serum or plasma glucose ashwini urement (mass/volume)on 01-21-2021 Glucose [Mass/Vol] 117 mg/dL 70-100 [facility] Comment on above: ADA recommended refe rence rangeRandom Glucose Reference Range is dependent on time and content of last meal. Glucose of more than 200 mg/dL in a nonstressed, ambulatory subject supports the diagnosis of Diabetes Mellitus. Serum or plasma potassium me asurement (moles/volume)on 01-21-2021 Potassium [Moles/Vol] 4.3 mmol/L 3.5-5.1 [facility] Serum or plasma sodium measu rement (moles/volume)on 01-21-2021 Sodium [Moles/Vol] 132 mmol/L 136-146 [facility] Serum or plasma total biliru bin measurement (mass/volume)on 01-21-2021 Bilirubin [Mass/Vol] 0.3 mg/dL 0.3-1.2 [facility] Serum or plasma total carbon dioxide measurement (moles/volume)on 01-21-2021 CO2 [Moles/Vol] 23.6 mmol/L 22.0-30.[address] [facility] Serum or plasma urea nitroge n measurement (mass/volume)on 01-21-2021 Urea nitrogen [Mass/Vol] 13 mg/dL 9- [facility] Albumin [Mass/volume] in Ser um or Plasmaon 11-05-2020 Albumin [Mass/Vol] 4.4 g/dL 3.2-5.5 [facility] Automated basophil %on 11-05 Basophils/100 WBC (Bld) 0.7 % [facility] Automated basophil counton 0 11-05-2020 Basophils (Bld) [#/Vol] 0.1 10*3/uL 0.0-0.2 [facility] Automated blood lymphocyte c ount (number/volume)on 11-05-2020 Lymphocytes (Bld) [#/Vol] 3.5 10*3/uL 1.00-4.8 [facility] Automated blood lymphocyte c ount as percentage of total leukocyteson 11-05-2020 Lymphocytes/100 WBC (Bld) 26.0 % [facility] Automated blood monocyte cou nton 11-05-2020 Monocytes (Bld) [#/Vol] 1.2 10*3/uL 0.0-0.8 [facility] Automated blood platelet cou nt (count/volume)on 11-05-2020 Platelets (Bld) [#/Vol] 317 10*3/uL 150-450 [facility] Automated blood platelet jett n volume measurementon 11-05-2020 Platelet mean volume (Bld) [Entitic vol] 8.2 fL 6.3-10.7 [facility] Automated eosinophil %on Eosinophils/100 WBC (Bld) 0.5 % [facility] Automated eosinophil counton 11-05-2020 Eosinophils (Bld) [#/Vol] 0.1 10*3/uL 0.0-0.45 [facility] Automated erythrocyte distri bution width ratioon 11-05-2020 Erythrocyte distribution width (RBC) [Ratio] 13.0 % 11.9-15.3 [facility] Automated erythrocyte mean c orpuscular hemoglobin (mass per erythrocyte)on 11-05-2020 MCH (RBC) [Entitic mass] 30.2 pg 24.7-34.3 [facility] Automated erythrocyte mean c orpuscular hemoglobin concentration measurement (mass/volon 11-05-2020 MCHC (RBC) [Mass/Vol] 33.9 g/dL 32.0-35.0 [facility] Automated erythrocyte mean c orpuscular volumeon 11-05-2020 MCV (RBC) [Entitic vol] 89.1 fL 80-100 [facility] Automated monocyte %on 11-05 Monocytes/100 WBC (Bld) 8.8 % [facility] Automated neutrophil %on Neutrophils/100 WBC (Bld) 64.0 % [facility] Blood erythrocytes automated count (number/volume)on 11-05-2020 RBC (Bld) [#/Vol] 4.92 10*6/uL 3.60-5.00 [facility] Blood hemoglobin measurement (mass/volume)on 11-05-2020 Hemoglobin (Bld) [Mass/Vol] 14.9 g/dL 11.8-15.4 [facility] Blood leukocytes automated c ount (number/volume)on 11-05-2020 WBC (Bld) [#/Vol] 13.4 10*3/uL 4.5-11.0 [facility] Blood neutrophil count by au tomated method (number/volume)on 11-05-2020 Neutrophils (Bld) [#/Vol] 8.6 10*3/uL 1.8-7.7 [facility] Estimated glomerular filtrat ion rate (GFR) non- Americanon 11-05-2020 GFR/1.73 sq M predicted among non-blacks MDRD (S/P/Bld) [Vol rate/Area] mL/min/{1.73_m2} [facility] Hematocrit [Volume Fraction] of Blood by Automated counton 11-05-2020 Hematocrit (Bld) [Volume fraction] 43.8 % 34.0-46.4 [facility] Otheron 11-05-2020 GFR/1.73 sq M.predicted MDRD (S/P/Bld) [Vol rate/Area] mL/min/{1.73_m2} [facility] Comment on above: GFR estimated refere nce range: According to KDOQI guidelines, <60 ml/min/1.73m2 is sufficient to diagnose a patient with chronic kidney disease. Nucleated RBC/100 WBC (Bld) [Ratio] 0.2 % 0-0.5 [facility] Creatinine Clearance (Chem N/A [facility] Protein [Mass/volume] in Ser um or Plasmaon 11-05-2020 Protein [Mass/Vol] 7.2 g/dL 6.1-7.9 [facility] Serum globulin measurement b y calculation (mass/volume)on 11-05-2020 Globulin (S) [Mass/Vol] 2.8 g/dL [facility] Serum glutamate decarboxylas e 65 antibody assay (units/volume)on 11-05-2020 Glutamate decarboxylase 65 Ab Qn (S) <5.0 U/mL [facility] Comment on above: Performed at: [address] [id number] Director: Ana Lee MD, Phone: [phone] Serum nuclear antibody titer on 11-05-2020 Nuclear Ab (S) [Titer] Negative [facility] Comment on above: Negative <1:80 Borde rline 1:80 Positive >1:80Performed at: [id number] [place] [id number] Director: Daniel Wen PhD, Phone: [phone] Nuclear Ab (S) [Titer] Negative [facility] Comment on above: Negative <1:80 Borde rline 1:80 Positive >1:80Performed at: [facility] [id number] [place], [place] [id number] Director: Daniel Wen PhD, Phone: [phone] Serum or plasma alanine george otransferase measurement without P-5'-P (enzymatic activion 11-05-2020 ALT No additional P-5'-P [Catalytic activity/Vol] 22 U/L [facility] Serum or plasma albumin/glob ulin mass ratioon 11-05-2020 Albumin/Globulin [Mass ratio] 1.6 {ratio} [facility] Serum or plasma alkaline lalo sphatase measurement (enzymatic activity/volume)on 11-05-2020 ALP [Catalytic activity/Vol] 60 U/L 32 [facility] Serum or plasma aspartate am inotransferase measurement (enzymatic activity/volume)on 11-05-2020 AST [Catalytic activity/Vol] 23 U/L 10 [facility] Serum or plasma calcium ashwini urement (mass/volume)on 11-05-2020 Calcium [Mass/Vol] 9.6 mg/dL 8.2-10.2 [facility] Serum or plasma chloride jett surement (moles/volume)on 11-05-2020 Chloride [Moles/Vol] 93 mmol/L 95-114 [facility] Serum or plasma creatinine m easurement with calculation of estimated glomerular filtron 11-05-2020 Creatinine [Mass/Vol] 0.62 mg/dL 0.44-1.03 [facility] Serum or plasma glucose ashwini urement (mass/volume)on 11-05-2020 Glucose [Mass/Vol] 82 mg/dL 70-100 [facility] Comment on above: ADA recommended refe rence rangeRandom Glucose Reference Range is dependent on time and content of last meal. Glucose of more than 200 mg/dL in a nonstressed, ambulatory subject supports the diagnosis of Diabetes Mellitus. Serum or plasma potassium me asurement (moles/volume)on 11-05-2020 Potassium [Moles/Vol] 4.3 mmol/L 3.5-5.1 [facility] Serum or plasma sodium measu rement (moles/volume)on 11-05-2020 Sodium [Moles/Vol] 128 mmol/L 136-146 [facility] Serum or plasma total biliru bin measurement (mass/volume)on 11-05-2020 Bilirubin [Mass/Vol] 0.6 mg/dL 0.3-1.2 [facility] Serum or plasma total carbon dioxide measurement (moles/volume)on 11-05-2020 CO2 [Moles/Vol] 22.8 mmol/L 22.0-30.[address] [facility] Serum or plasma urea nitroge n measurement (mass/volume)on 11-05-2020 Urea nitrogen [Mass/Vol] 10 mg/dL 9-23 [facility] Automated basophil %on 10-22 Basophils/100 WBC (Bld) 0.6 % [facility] Automated basophil counton 0 10-22-2020 Basophils (Bld) [#/Vol] 0.1 10*3/uL 0.0-0.2 [facility] Automated blood lymphocyte c ount (number/volume)on 10-22-2020 Lymphocytes (Bld) [#/Vol] 2.8 10*3/uL 1.00-4.8 [facility] Automated blood lymphocyte c ount as percentage of total leukocyteson 10-22-2020 Lymphocytes/100 WBC (Bld) 23.6 % [facility] Automated blood monocyte cou nton 10-22-2020 Monocytes (Bld) [#/Vol] 1.0 10*3/uL 0.0-0.8 [facility] Automated blood platelet cou nt (count/volume)on 10-22-2020 Platelets (Bld) [#/Vol] 292 10*3/uL 150-450 [facility] Automated blood platelet jett n volume measurementon 10-22-2020 Platelet mean volume (Bld) [Entitic vol] 9.4 fL 6.3-10.7 [facility] Automated eosinophil %on Eosinophils/100 WBC (Bld) 0.5 % [facility] Automated eosinophil counton 10-22-2020 Eosinophils (Bld) [#/Vol] 0.1 10*3/uL 0.0-0.45 [facility] Automated erythrocyte distri bution width ratioon 10-22-2020 Erythrocyte distribution width (RBC) [Ratio] 12.8 % 11.9-15.3 [facility] Automated erythrocyte mean c orpuscular hemoglobin (mass per erythrocyte)on 10-22-2020 MCH (RBC) [Entitic mass] 29.5 pg 24.7-34.3 [facility] Automated erythrocyte mean c orpuscular hemoglobin concentration measurement (mass/volon 10-22-2020 MCHC (RBC) [Mass/Vol] 32.9 g/dL 32.0-35.0 [facility] Automated erythrocyte mean c orpuscular volumeon 10-22-2020 MCV (RBC) [Entitic vol] 89.6 fL 80-100 [facility] Automated monocyte %on 10-22 Monocytes/100 WBC (Bld) 8.7 % [facility] Automated neutrophil %on Neutrophils/100 WBC (Bld) 66.6 % [facility] Blood erythrocytes automated count (number/volume)on 10-22-2020 RBC (Bld) [#/Vol] 4.90 10*6/uL 3.60-5.00 [facility] Blood hemoglobin measurement (mass/volume)on 10-22-2020 Hemoglobin (Bld) [Mass/Vol] 14.5 g/dL 11.8-15.4 [facility] Blood leukocytes automated c ount (number/volume)on 10-22-2020 WBC (Bld) [#/Vol] 12.1 10*3/uL 3.8-11.6 [facility] Blood neutrophil count by au tomated method (number/volume)on 10-22-2020 Neutrophils (Bld) [#/Vol] 8.0 10*3/uL 1.8-7.7 [facility] Body fluid albumin measureme nt (mass/volume)on 10-22-2020 Albumin (Body fld) [Mass/Vol] 4.2 g/dL 3.2-5.5 [facility] Estimated glomerular filtrat ion rate (GFR) non- Americanon 10-22-2020 GFR/1.73 sq M predicted among non-blacks MDRD (S/P/Bld) [Vol rate/Area] mL/min/{1.73_m2} [facility] Hematocrit [Volume Fraction] of Blood by Automated counton 10-22-2020 Hematocrit (Bld) [Volume fraction] 43.9 % 34.0-46.4 [facility] Hematologyon 10-22-2020 Platelets (Bld) [#/Vol] Normal Normal [facility] Otheron 10-22-2020 25-Hydroxy Vitamin D Total 13.3 ng/mL 30-100 [facility] Comment on above: VITAMIN D STATUS 25( [place])VITAMIN D RANGE (ng/mL) Deficient <20 Insufficient 20 to <30Sufficient 30 to 100Reference: Jovnani MF,Dominique NC, Gillian NINA, et al. Evaluation,treatment, and prevention of vitamin D deficiency; an Endocrine Society clinical practice guideline. JCEM. 2010; 96(7):1911-30. Cobalamin (Vitamin B12) [Mass/Vol] 438 pg/mL 180-914 [facility] GFR/1.73 sq M.predicted MDRD (S/P/Bld) [Vol rate/Area] mL/min/{1.73_m2} [facility] Comment on above: GFR estimated refere nce range: According to KDOQI guidelines, <60 ml/min/1.73m2 is sufficient to diagnose a patient with chronic kidney disease. Nucleated RBC/100 WBC (Bld) [Ratio] 0.0 % 0-0.5 [facility] Creatinine Clearance (Chem N/A [facility] Platelet Morphology Comment Normal Normal [facility] Valproic Acid (Depakene) Level 108.9 ug/mL 50.0-100.0 [facility] Comment on above: Last dose: - Protein [Mass/volume] in Ser um or Plasmaon 10-22-2020 Protein [Mass/Vol] 7.1 g/dL 6.1-7.9 [facility] RBC morphologyon 10-22-2020 RBC morphology finding Nom (Bld) Normal [facility] Serum globulin measurement b y calculation (mass/volume)on 10-22-2020 Globulin (S) [Mass/Vol] 2.9 g/dL [facility] Serum or plasma alanine george otransferase measurement without P-5'-P (enzymatic activion 10-22-2020 ALT No additional P-5'-P [Catalytic activity/Vol] 13 U/L 10-60 [facility] Serum or plasma albumin/glob ulin mass ratioon 10-22-2020 Albumin/Globulin [Mass ratio] 1.4 {ratio} [facility] Serum or plasma alkaline lalo sphatase measurement (enzymatic activity/volume)on 10-22-2020 ALP [Catalytic activity/Vol] 53 U/L 32-92 [facility] Serum or plasma aspartate am inotransferase measurement (enzymatic activity/volume)on 10-22-2020 AST [Catalytic activity/Vol] 15 U/L 10-42 [facility] Serum or plasma calcium ashwini urement (mass/volume)on 10-22-2020 Calcium [Mass/Vol] 9.6 mg/dL 8.2-10.2 [facility] Serum or plasma chloride jett surement (moles/volume)on 10-22-2020 Chloride [Moles/Vol] 96 mmol/L 95-114 [facility] Serum or plasma creatinine m easurement with calculation of estimated glomerular filtron 10-22-2020 Creatinine [Mass/Vol] 0.54 mg/dL 0.44-1.03 [facility] Serum or plasma glucose ashwini urement (mass/volume)on 10-22-2020 Glucose [Mass/Vol] 96 mg/dL 70-100 [facility] Comment on above: ADA recommended refe rence rangeRandom Glucose Reference Range is dependent on time and content of last meal. Glucose of more than 200 mg/dL in a nonstressed, ambulatory subject supports the diagnosis of Diabetes Mellitus. Serum or plasma potassium me asurement (moles/volume)on 10-22-2020 Potassium [Moles/Vol] 4.7 mmol/L 3.5-5.1 [facility] Serum or plasma sodium measu rement (moles/volume)on 10-22-2020 Sodium [Moles/Vol] 130 mmol/L 136-146 [facility] Serum or plasma total biliru bin measurement (mass/volume)on 10-22-2020 Bilirubin [Mass/Vol] 0.3 mg/dL 0.3-1.2 [facility] Serum or plasma total carbon dioxide measurement (moles/volume)on 10-22-2020 CO2 [Moles/Vol] 22.5 mmol/L 22.0-30.[address] [facility] Serum or plasma urea nitroge n measurement (mass/volume)on 10-22-2020 Urea nitrogen [Mass/Vol] 5 mg/dL 9-23 [facility] Automated basophil %on 09-23 Basophils/100 WBC (Bld) 0.7 % [facility] Automated basophil counton 1 11-24-2019 Basophils (Bld) [#/Vol] 0.1 10*3/uL 0.0-0.2 [facility] Automated blood lymphocyte c ount (number/volume)on 09-23-2020 Lymphocytes (Bld) [#/Vol] 3.3 10*3/uL 1.00-4.8 [facility] Automated blood lymphocyte c ount as percentage of total leukocyteson 09-23-2020 Lymphocytes/100 WBC (Bld) 27.3 % [facility] Automated blood monocyte cou nton 09-23-2020 Monocytes (Bld) [#/Vol] 1.3 10*3/uL 0.0-0.8 [facility] Automated blood platelet cou nt (count/volume)on 09-23-2020 Platelets (Bld) [#/Vol] 299 10*3/uL 150-450 [facility] Automated blood platelet jett n volume measurementon 09-23-2020 Platelet mean volume (Bld) [Entitic vol] 8.3 fL 6.3-10.7 [facility] Automated eosinophil %on Eosinophils/100 WBC (Bld) 0.7 % [facility] Automated eosinophil counton 09-23-2020 Eosinophils (Bld) [#/Vol] 0.1 10*3/uL 0.0-0.45 [facility] Automated erythrocyte distri bution width ratioon 09-23-2020 Erythrocyte distribution width (RBC) [Ratio] 12.8 % 11.9-15.3 [facility] Automated erythrocyte mean c orpuscular hemoglobin (mass per erythrocyte)on 09-23-2020 MCH (RBC) [Entitic mass] 29.8 pg 24.7-34.3 [facility] Automated erythrocyte mean c orpuscular hemoglobin concentration measurement (mass/volon 09-23-2020 MCHC (RBC) [Mass/Vol] 33.4 g/dL 32.0-35.0 [facility] Automated erythrocyte mean c orpuscular volumeon 09-23-2020 MCV (RBC) [Entitic vol] 89.3 fL 80-100 [facility] Automated monocyte %on 09-23 Monocytes/100 WBC (Bld) 10.8 % [facility] Automated neutrophil %on Neutrophils/100 WBC (Bld) 60.5 % [facility] Blood erythrocytes automated count (number/volume)on 09-23-2020 RBC (Bld) [#/Vol] 4.72 10*6/uL 3.60-5.00 [facility] Blood hemoglobin measurement (mass/volume)on 09-23-2020 Hemoglobin (Bld) [Mass/Vol] 14.1 g/dL 11.8-15.4 [facility] Blood leukocytes automated c ount (number/volume)on 09-23-2020 WBC (Bld) [#/Vol] 11.9 10*3/uL 3.8-11.6 [facility] Blood neutrophil count by au tomated method (number/volume)on 09-23-2020 Neutrophils (Bld) [#/Vol] 7.2 10*3/uL 1.8-7.7 [facility] Body fluid albumin measureme nt (mass/volume)on 09-23-2020 Albumin (Body fld) [Mass/Vol] 3.9 g/dL 3.2-5.5 [facility] Estimated glomerular filtrat ion rate (GFR) non- Americanon 09-23-2020 GFR/1.73 sq M predicted among non-blacks MDRD (S/P/Bld) [Vol rate/Area] mL/min/{1.73_m2} [facility] Hematocrit [Volume Fraction] of Blood by Automated counton 09-23-2020 Hematocrit (Bld) [Volume fraction] 42.1 % 34.0-46.4 [facility] Otheron 09-23-2020 25-Hydroxy Vitamin D Total 17.0 ng/mL 30-100 [facility] Comment on above: VITAMIN D STATUS 25( [place])VITAMIN D RANGE (ng/mL) Deficient <20 Insufficient 20 to <30Sufficient 30 to 100Reference: Jovanni MF,Dominique NC, Gillian NINA, et al. Evaluation,treatment, and prevention of vitamin D deficiency; an Endocrine Society clinical practice guideline. JCEM. 2010; 96(7):1911-30. GFR/1.73 sq M.predicted MDRD (S/P/Bld) [Vol rate/Area] mL/min/{1.73_m2} [facility] Comment on above: GFR estimated refere nce range: According to KDOQI guidelines, <60 ml/min/1.73m2 is sufficient to diagnose a patient with chronic kidney disease. Nucleated RBC/100 WBC (Bld) [Ratio] 0.1 % 0-0.5 [facility] Creatinine Clearance (Chem N/A [facility] Valproic Acid (Depakene) Level 45.9 ug/mL 50.0-100.0 [facility] Comment on above: Last dose: - Protein [Mass/volume] in Ser um or Plasmaon 09-23-2020 Protein [Mass/Vol] 6.7 g/dL 6.1-7.9 [facility] Serum globulin measurement b y calculation (mass/volume)on 09-23-2020 Globulin (S) [Mass/Vol] 2.8 g/dL [facility] Serum or plasma alanine george otransferase measurement without P-5'-P (enzymatic activion 09-23-2020 ALT No additional P-5'-P [Catalytic activity/Vol] 15 U/L 10-60 [facility] Serum or plasma albumin/glob ulin mass ratioon 09-23-2020 Albumin/Globulin [Mass ratio] 1.4 {ratio} [facility] Serum or plasma alkaline lalo sphatase measurement (enzymatic activity/volume)on 09-23-2020 ALP [Catalytic activity/Vol] 52 U/L 3292 [facility] Serum or plasma aspartate am inotransferase measurement (enzymatic activity/volume)on 09-23-2020 AST [Catalytic activity/Vol] 16 U/L 10-42 [facility] Serum or plasma calcium ashwini urement (mass/volume)on 09-23-2020 Calcium [Mass/Vol] 9.2 mg/dL 8.2-10.2 [facility] Serum or plasma chloride jett surement (moles/volume)on 09-23-2020 Chloride [Moles/Vol] 102 mmol/L 95-114 [facility] Serum or plasma creatinine m easurement with calculation of estimated glomerular filtron 09-23-2020 Creatinine [Mass/Vol] 0.67 mg/dL 0.44-1.03 [facility] Serum or plasma glucose ashwini urement (mass/volume)on 09-23-2020 Glucose [Mass/Vol] 122 mg/dL 70-100 [facility] Comment on above: ADA recommended refe rence rangeRandom Glucose Reference Range is dependent on time and content of last meal. Glucose of more than 200 mg/dL in a nonstressed, ambulatory subject supports the diagnosis of Diabetes Mellitus. Serum or plasma potassium me asurement (moles/volume)on 09-23-2020 Potassium [Moles/Vol] 4.8 mmol/L 3.5-5.1 [facility] Serum or plasma sodium measu rement (moles/volume)on 09-23-2020 Sodium [Moles/Vol] 136 mmol/L 136-146 [facility] Serum or plasma total biliru bin measurement (mass/volume)on 09-23-2020 Bilirubin [Mass/Vol] 0.2 mg/dL 0.3-1.2 [facility] Serum or plasma total carbon dioxide measurement (moles/volume)on 09-23-2020 CO2 [Moles/Vol] 23.0 mmol/L 22.0-30.[address] [facility] Serum or plasma urea nitroge n measurement (mass/volume)on 09-23-2020 Urea nitrogen [Mass/Vol] 5 mg/dL 06-26 [facility] - Other Lab [facility] - Other Lab Results [id number]#[id number] Coding Summaryon 06-27-2019 Coding Summary CODING DATE: 019 [facility] STATUS: Home PAYOR: Medicaid HMO ADMIT DX: [...] Piña Revised Date Saved: 06/27/2019 12:43 pm [facility] Provider Orderson 06-27-2019 Provider Orders [id number]#[address] Provider Orders [id number] .Auto Diff 1on 06-26-2019 Auto Linn % 9 % Normal 10-[address] [facility] Comment on above: Performed By: #### 1 [id number] #### [facility] (DEFAULT) [address] [place] [address] Baso Abs# 0.0 x10 Normal 0.0-0.[address] [facility] Comment on above: Performed By: #### 1 [id number] #### [facility] (DEFAULT) [address] [place] [address] 90759 Basophils/100 WBC (Bld) 0.3 % Normal 0.2-2.[address] [facility] Comment on above: Performed By: #### 1 [id number] #### [facility] (DEFAULT) [address] [place] [address] 77626 Eos Abs# 0.0 x10 Normal 0.0-0.[address] [facility] Comment on above: Performed By: #### 1 [id number] #### [facility] (DEFAULT) [address] [place] [address] 67742 Eosinophils/100 WBC (Bld) 0.4 % Low 0.9-4.[address] [facility] Comment on above: Performed By: #### 1 [id number] #### [facility] (DEFAULT) [address] [place] [address]240 Lymphocytes (Bld) [#/Vol] 3.7 x10 High 1.3-2.[address] [facility] Comment on above: Performed By: #### 1 [id number] #### [facility] (DEFAULT) [address] [place] [address] 32591 Lymphocytes/100 WBC (Bld) 29 % Normal 14-[address] [facility] Comment on above: Performed By: #### 1 [id number] #### [facility] (DEFAULT) [address] [place] [address] 62930 Linn Abs# 1.2 x10 High 0.0-0.[address] [facility] Comment on above: Performed By: #### 1 [id number] #### [facility] (DEFAULT) [address] [place] [address] 15045 Neut Abs# 7.7 x10 Normal 1.5-9.[address] [facility] Comment on above: Performed By: #### 1 [id number] #### [facility] (DEFAULT) [address] [place] [address] Neutrophils/100 WBC (Bld) 61 % Normal 44-[address] [facility] Comment on above: Performed By: #### 1 [id number] #### [facility] (DEFAULT) [address] [place] [address] CBC w/ Auto Diffon 9 Erythrocyte distribution width (RBC) [Ratio] 14.0 % Normal 11.5-15.[address] [facility] Comment on above: Performed By: #### 1 [id number] #### [facility] (DEFAULT) [address] [place] [address] Hematocrit (Bld) [Volume fraction] 44.8 % High 33.7-40.[address] [facility] [facility] Comment on above: Performed By: #### 1 [id number] #### [facility] (DEFAULT) [address] [place] [address] Hemoglobin (Bld) [Mass/Vol] 15.1 g/dL Normal 11.3-15.[address] [facility] Comment on above: Performed By: #### 1 [id number], [id number] #### [facility] (DEFAULT) [address] [place] [address] Man Diff? Auto Normal [facility] Comment on above: Performed By: #### 1 [id number], [id number] #### [facility] (DEFAULT) [address] [place] [address] MCH (RBC) [Entitic mass] 30 pg Normal 24-[address] [facility] Comment on above: Performed By: #### 1 [id number], [id number] #### [facility] (DEFAULT) [address] [place] [address] MCHC (RBC) [Mass/Vol] 34 g/dL Normal 26-37 [facility] Comment on above: Performed By: #### 1 [id number] #### [facility] (DEFAULT) [address] [place] [address] MCV (RBC) [Entitic vol] 89 fL Normal 81-[address] [facility] Comment on above: Performed By: #### 1 [id number] #### [facility] (DEFAULT) [address] [place] [address] Platelet mean volume (Bld) [Entitic vol] 9.5 fL Normal 6.3-10.[address] [facility] Comment on above: Performed By: #### 1 [id number], [id number] #### [facility] (DEFAULT) [address] [place] [address] Platelets (Bld) [#/Vol] 301 x10 Normal 138-[address] [facility] Comment on above: Performed By: #### 1 [id number], [id number] #### [facility] (DEFAULT) [address] [place] [address] RBC (Bld) [#/Vol] 5.04 x10 Normal 3.70-5.30 [facility] Comment on above: Performed By: #### 1 [id number], [id number] #### [facility] (DEFAULT) [address] [place] [address] WBC (Bld) [#/Vol] 12.6 x10 [facility] Comment on above: Performed By: #### 1 [id number] #### [facility] (DEFAULT) [address] [place] [address] Lab - Other Lab [facility] Lab - Other Lab Results [id number][facility] Outside Records [id number]#[facility] [id number]#1.00[facility] Vital Sign[facility] Date Time Vital Sign Value Performing Clinician Facility 05-09-2025 09:59-0400 Body weight 68.94 kg Ajit DEJESUS Work Phone: [facility] 05-09-2025 09:59-0400 Diastolic blood pressure 77 mm[Hg] Ajit Spasic [employer] Work Phone: [facility] 05-09-2025 09:59-0400 Heart rate 80 /min Ajit Spasic [employer] Work Phone: [facility] 05-09-2025 09:59-0400 Respiratory rate 20 /min Ajit Spasic [employer] Work Phone: [facility] 05-09-2025 09:59-0400 SaO2% (BldA) [Mass fraction] 98 % Ajit Spasic [employer] Work Phone: [facility] 05-09-2025 09:59-0400 Systolic blood pressure 112 mm[Hg] Ajit Spasic [employer] Work Phone: [facility] 05-09-2025 09:10-0400 Body weight 69.05 kg Ajit Spasic [employer] Work Phone: [facility] 05-09-2025 09:10-0400 Diastolic blood pressure 66 mm[Hg] Ajit Spasic [employer] Work Phone: [facility] 05-09-2025 09:10-0400 Heart rate 69 /min Ajit Spasic [employer] Work Phone: [facility] 05-09-2025 09:10-0400 SaO2% (BldA) [Mass fraction] 98 % Ajit Spasic [employer] Work Phone: [facility] 05-09-2025 09:10-0400 Systolic blood pressure 118 mm[Hg] Ajit Spasic [employer] Work Phone: [facility] 04-16-2025 14:00-0400 Body height 166.37 cm Ajit Spasic [employer] Work Phone: [facility] 04-16-2025 14:00-0400 Body mass index (BMI) [Ratio] 24 kg/m2 Ajit Spasic [employer] Work Phone: [facility] 04-16-2025 14:00-0400 Body temperature 97.9 [degF] Ajit Spasic [employer] Work Phone: [facility] 04-16-2025 14:00-0400 Body weight 66.67 kg Ajit Spasic [employer] Work Phone: [facility] 04-16-2025 14:00-0400 Diastolic blood pressure 84 mm[Hg] Ajit Spasic [employer] Work Phone: [facility] 04-16-2025 14:00-0400 Heart rate 82 /min Ajit Spasic [employer] Work Phone: [facility] 04-16-2025 14:00-0400 Systolic blood pressure 133 mm[Hg] Ajit Spasic [employer] Work Phone: [facility] 04-04-2025 09:49-0400 Body weight 71.66 kg Ajit Spasic [employer] Work Phone: [facility] 04-04-2025 09:49-0400 Diastolic blood pressure 82 mm[Hg] Ajit Spasic [employer] Work Phone: [facility] 04-04-2025 09:49-0400 Heart rate 76 /min Ajit Spasic [employer] Work Phone: [facility] 04-04-2025 09:49-0400 Respiratory rate 20 /min Ajit Spasic [employer] Work Phone: [facility] 04-04-2025 09:49-0400 SaO2% (BldA) [Mass fraction] 100 % Ajit Spasic [employer] Work Phone: [facility] 04-04-2025 09:49-0400 Systolic blood pressure 124 mm[Hg] Ajit Spasic [employer] Work Phone: [facility] 03-20-2025 08:48-0400 Body height 166.37 cm Ajit Spasic [employer] Work Phone: [facility] 03-20-2025 08:48-0400 Body mass index (BMI) [Ratio] 25.4 kg/m2 Ajit Spasic [employer] Work Phone: [facility] 03-20-2025 08:48-0400 Body weight 70.3 kg Ajit Spasic [employer] Work Phone: [facility] 03-14-2025 08:50-0400 Body height 166.37 cm Ajit Spasic [employer] Work Phone: [facility] 03-14-2025 08:50-0400 Body mass index (BMI) [Ratio] 24.9 kg/m2 Ajit Spasic [employer] Work Phone: [facility] 03-14-2025 08:50-0400 Body temperature 97.4 [degF] Ajit Spasic [employer] Work Phone: [facility] 03-14-2025 08:50-0400 Body weight 68.94 kg Ajit Spasic [employer] Work Phone: [facility] 03-14-2025 08:50-0400 Diastolic blood pressure 86 mm[Hg] Ajit Spasic [employer] Work Phone: [facility] 03-14-2025 08:50-0400 Heart rate 91 /min Ajit Spasic [employer] Work Phone: [facility] 03-14-2025 08:50-0400 Respiratory rate 20 /min Ajit Spasic [employer] Work Phone: [facility] 03-14-2025 08:50-0400 SaO2% (BldA) [Mass fraction] 99 % Ajit Spasic [employer] Work Phone: [facility] 03-14-2025 08:50-0400 Systolic blood pressure 152 mm[Hg] Ajit Larioscynthia [employer] Work Phone: [facility] 01-24-2025 11:34-0400 Body temperature 97.7 [degF] [facility] 01-24-2025 11:34-0400 Diastolic blood pressure 94 mm[Hg] [facility] 01-24-2025 11:34-0400 Heart rate 93 /min [facility] 01-24-2025 11:34-0400 Respiratory rate 18 /min [facility] 01-24-2025 11:34-0400 SaO2% (BldA) [Mass fraction] 99 % [facility] 01-24-2025 11:34-0400 Systolic blood pressure 140 mm[Hg] [facility] 07-09-2024 15:23-0400 Diastolic blood pressure 85 mm[Hg] Ambrose Cedeño [facility] 07-09-2024 15:23-0400 Heart rate 80 /min Ambrose Cedeño [facility] 07-09-2024 15:23-0400 Mean blood pressure 97 mm[Hg] Ambrose Cedeño [facility] 07-09-2024 15:23-0400 Respiratory rate 18 /min Ambrose Cedeño [facility] 07-09-2024 15:23-0400 SaO2% (BldA) [Mass fraction] 99 % Ambrose Cedeño [facility] 07-09-2024 15:23-0400 Systolic blood pressure 120 mm[Hg] Ambrose Cedeño [facility] 07-09-2024 14:45-0400 Diastolic blood pressure 78 mm[Hg] Ambrose Cedeño [facility] 07-09-2024 14:45-0400 Heart rate 83 /min Ambrose Davidson [facility] 07-09-2024 14:45-0400 Hourly Rounding Ambrose Davidson [facility] 07-09-2024 14:45-0400 Mean blood pressure 91 mm[Hg] Ambrose Davidson [facility] 07-09-2024 14:45-0400 Promise to Return Ambrose Davidson [facility] 07-09-2024 14:45-0400 Respiratory rate 18 /min Ambrose Davisdon [facility] 07-09-2024 14:45-0400 SaO2% (BldA) [Mass fraction] 99 % Ambrose Davidson [facility] 07-09-2024 14:45-0400 Systolic blood pressure 118 mm[Hg] Ambrose Davidson [facility] 07-09-2024 13:45-0400 Diastolic blood pressure 89 mm[Hg] Ambrose Davidson [facility] 07-09-2024 13:45-0400 Heart rate 79 /min Ambrose Davidson [facility] 07-09-2024 13:45-0400 Hourly Rounding Ambrose Davidson [facility] 07-09-2024 13:45-0400 Mean blood pressure 95 mm[Hg] Ambrose Davidson [facility] 07-09-2024 13:45-0400 Promise to Return Ambrose Davidson [facility] 07-09-2024 13:45-0400 Respiratory rate 18 /min Ambrose Davidson [facility] 07-09-2024 13:45-0400 SaO2% (BldA) [Mass fraction] 99 % Ambrose Cedeño [facility] 07-09-2024 13:45-0400 Systolic blood pressure 106 mm[Hg] Ambrose Cedeño [facility] 07-09-2024 12:41-0400 Body temperature 98.24 [degF] Ambrose Cedeño [facility] 07-09-2024 12:41-0400 Heart rate 82 /min Ambrose Cedeño [facility] 07-06-2024 20:55-0400 Diastolic blood pressure 84 mm[Hg] [employer] Ajit Spasic Work Phone: [facility] 07-06-2024 20:55-0400 Heart rate 98 /min [employer] Ajit Spasic Work Phone: [facility] 07-06-2024 20:55-0400 Respiratory rate 18 /min [employer] Ajit Spasic Work Phone: [facility] 07-06-2024 20:55-0400 SaO2% (BldA) [Mass fraction] 97 % [employer] Ajit Spasic Work Phone: [facility] 07-06-2024 20:55-0400 Systolic blood pressure 119 mm[Hg] [employer] Ajit Spasic Work Phone: [facility] 07-06-2024 16:05-0400 Body height 166.37 cm [employer] Ajit Spasic Work Phone: [facility] 07-06-2024 16:05-0400 Body temperature 98.2 [degF] [employer] Ajit Spasic Work Phone: [facility] 07-06-2024 16:05-0400 Body weight 66.67 kg [employer] Ajit Spasic Work Phone: [facility] 04-11-2024 14:08-0400 Diastolic blood pressure 70 mm[Hg] [employer] Ajit Spasic Work Phone: [facility] 04-11-2024 14:08-0400 Heart rate 83 /min [employer] Ajit Spasic Work Phone: [facility] 04-11-2024 14:08-0400 SaO2% (BldA) [Mass fraction] 99 % [employer] Ajit Spasic Work Phone: [facility] 04-11-2024 14:08-0400 Systolic blood pressure 118 mm[Hg] [employer] Ajit Spasic Work Phone: [facility] 03-16-2024 09:55-0400 Diastolic blood pressure 87 mm[Hg] [employer] Ajit Spasic Work Phone: [facility] 03-16-2024 09:55-0400 Heart rate 66 /min [employer] Ajit Spasic Work Phone: [facility] 03-16-2024 09:55-0400 Respiratory rate 20 /min [employer] Ajit Spasic Work Phone: [facility] 03-16-2024 09:55-0400 SaO2% (BldA) [Mass fraction] 99 % [employer] Ajit Spasic Work Phone: [facility] 03-16-2024 09:55-0400 Systolic blood pressure 138 mm[Hg] [employer] Ajit Spasic Work Phone: [facility] 03-16-2024 07:01-0400 Body height 166.37 cm [employer] Ajit Spasic Work Phone: [facility] 03-16-2024 07:01-0400 Body temperature 98.3 [degF] [employer] Ajit Spasic Work Phone: [facility] 03-16-2024 07:01-0400 Body weight 69.85 kg [employer] Ajit Spasic Work Phone: [facility] 03-08-2024 14:14-0400 Diastolic blood pressure 70 mm[Hg] [employer] Ajit Spasic Work Phone: [facility] 03-08-2024 14:14-0400 Heart rate 95 /min [employer] Ajit Spasic Work Phone: [facility] 03-08-2024 14:14-0400 SaO2% (BldA) [Mass fraction] 99 % [employer] Ajit Spasic Work Phone: [facility] 03-08-2024 14:14-0400 Systolic blood pressure 122 mm[Hg] [employer] Ajit Spasic Work Phone: [facility] 03-01-2024 12:19-0400 Diastolic blood pressure 75 mm[Hg] [employer] Ajit Spasic Work Phone: [facility] 03-01-2024 12:19-0400 Heart rate 69 /min [employer] Ajit Spasic Work Phone: [facility] 03-01-2024 12:19-0400 Inhaled oxygen flow rate 3 L/min [employer] Ajit Spasic Work Phone: [facility] 03-01-2024 12:19-0400 SaO2% (BldA) [Mass fraction] 100 % [employer] Ajit Spasic Work Phone: [facility] 03-01-2024 12:19-0400 Systolic blood pressure 130 mm[Hg] [employer] Ajit Spasic Work Phone: [facility] 03-01-2024 12:13-0400 Respiratory rate 18 /min [employer] Ajit Spasic Work Phone: [facility] 03-01-2024 09:54-0400 Body height 166.37 cm [employer] Ajit Spasic Work Phone: [facility] 03-01-2024 09:54-0400 Body weight 69.85 kg [employer] Ajit Spasic Work Phone: [facility] 02-21-2024 10:41-0400 Body weight 69.11 kg [employer] Ajit Spasic Work Phone: [facility] 02-21-2024 10:41-0400 Diastolic blood pressure 80 mm[Hg] [employer] Ajit Spasic Work Phone: [facility] 02-21-2024 10:41-0400 Systolic blood pressure 124 mm[Hg] [employer] Ajit Spasic Work Phone: [facility] 10-16-2023 13:00-0500 Diastolic blood pressure 94 mm[Hg] [employer] Ajit Spasic Work Phone: [facility] 10-16-2023 13:00-0500 Heart rate 70 /min [employer] Ajit Spasic Work Phone: [facility] 10-16-2023 13:00-0500 Respiratory rate 16 /min [employer] Ajit Spasic Work Phone: [facility] 10-16-2023 13:00-0500 SaO2% (BldA) [Mass fraction] 97 % [employer] Ajit Spasic Work Phone: [facility] 10-16-2023 13:00-0500 Systolic blood pressure 168 mm[Hg] [employer] Ajit Spasic Work Phone: [facility] 10-16-2023 09:33-0500 Body height 165.1 cm [employer] Ajit Spasic Work Phone: [facility] 10-16-2023 09:33-0500 Body temperature 97.4 [degF] [employer] Ajit Spasic Work Phone: [phone] [place] [address] 10-16-2023 09:33-0500 Body weight 77.3 kg [employer] Ajit Spasic Work Phone: [facility] 10-09-2023 16:00-0500 Body temperature 97.7 [degF] [employer] Ajit Spasic Work Phone: [facility] 10-09-2023 16:00-0500 Diastolic blood pressure 80 mm[Hg] [employer] Ajit Spasic Work Phone: [facility] 10-09-2023 16:00-0500 Heart rate 85 /min [employer] Ajit Spasic Work Phone: [facility] 10-09-2023 16:00-0500 Respiratory rate 18 /min [employer] Ajit Spasic Work Phone: [facility] 10-09-2023 16:00-0500 SaO2% (BldA) [Mass fraction] 99 % [employer] Ajit Spasic Work Phone: [facility] 10-09-2023 16:00-0500 Systolic blood pressure 117 mm[Hg] [employer] Ajit Spasic Work Phone: [facility] 10-08-2023 01:12-0500 Body height 165.1 cm [employer] Ajit Spasic Work Phone: [facility] 10-08-2023 01:12-0500 Body weight 76.65 kg [employer] Ajit Spasic Work Phone: [facility] 09-28-2023 13:30-0500 Diastolic blood pressure 87 mm[Hg] [employer] Ajit Spasic Work Phone: [facility] 09-28-2023 13:30-0500 Heart rate 94 /min [employer] Ajit Spasic Work Phone: [facility] 09-28-2023 13:30-0500 Respiratory rate 18 /min [employer] Ajit Spasic Work Phone: [facility] 09-28-2023 13:30-0500 SaO2% (BldA) [Mass fraction] 94 % [employer] Ajit Spasic Work Phone: [facility] 09-28-2023 13:30-0500 Systolic blood pressure 131 mm[Hg] [employer] Ajit Spasic Work Phone: [facility] 09-28-2023 09:30-0500 Body temperature 97.9 [degF] [employer] Ajit Spasic Work Phone: [facility] 09-28-2023 08:51-0500 Inhaled oxygen flow rate 10 L/min [employer] Ajit Spasic Work Phone: [facility] 09-28-2023 07:20-0500 Body height 166.37 cm [employer] Ajit Spasic Work Phone: [facility] 09-28-2023 07:20-0500 Body mass index (BMI) [Ratio] 27.7 kg/m2 [employer] Ajit Spasic Work Phone: [facility] 09-28-2023 07:20-0500 Body weight 76.7 kg [employer] Ajit Spasic Work Phone: [facility] 07-13-2023 13:55-0400 Diastolic blood pressure 93 mm[Hg] NA [employer] Work Phone: [facility] 07-13-2023 13:55-0400 Heart rate 87 /min NA [employer] Work Phone: [facility] 07-13-2023 13:55-0400 Respiratory rate 16 /min NA [employer] Work Phone: [facility] 07-13-2023 13:55-0400 SaO2% (BldA) [Mass fraction] 96 % NA [employer] Work Phone: [facility] 07-13-2023 13:55-0400 Systolic blood pressure 133 mm[Hg] NA [employer] Work Phone: [facility] 07-13-2023 13:16-0400 Body temperature 98 [degF] NA [employer] Work Phone: [facility] 07-13-2023 12:51-0400 Inhaled oxygen flow rate 10 L/min NA [employer] Work Phone: [facility] 07-13-2023 12:17-0400 Body height 165.1 cm NA [employer] Work Phone: [facility] 07-13-2023 12:17-0400 Body mass index (BMI) [Ratio] 28.2 kg/m2 NA [employer] Work Phone: [facility] 07-13-2023 12:17-0400 Body weight 77 kg NA [employer] Work Phone: [facility] 05-05-2023 10:18-0400 Diastolic blood pressure 90 mm[Hg] [employer] Ajit Spasic Work Phone: [facility] 05-05-2023 10:18-0400 Heart rate 82 /min [employer] Ajit Spasic Work Phone: [facility] 05-05-2023 10:18-0400 Respiratory rate 18 /min [employer] Ajit Spasic Work Phone: [facility] 05-05-2023 10:18-0400 SaO2% (BldA) [Mass fraction] 98 % [employer] Ajit Spasic Work Phone: [facility] 05-05-2023 10:18-0400 Systolic blood pressure 130 mm[Hg] [employer] Ajit Spasic Work Phone: [facility] 05-05-2023 09:39-0400 Inhaled oxygen flow rate 3 L/min [employer] Ajit Spasic Work Phone: [facility] 05-05-2023 08:43-0400 Body height 165.1 cm [employer] Ajit Spasic Work Phone: [facility] 05-05-2023 08:43-0400 Body weight 74.84 kg [employer] Ajit Spasic Work Phone: [facility] 04-14-2023 12:08-0400 Diastolic blood pressure 89 mm[Hg] [employer] Ajit Spasic Work Phone: [facility] 04-14-2023 12:08-0400 Heart rate 71 /min [employer] Ajit Spasic Work Phone: [facility] 04-14-2023 12:08-0400 Respiratory rate 16 /min [employer] Ajit Spasic Work Phone: [facility] 04-14-2023 12:08-0400 SaO2% (BldA) [Mass fraction] 97 % [employer] Ajit Spasic Work Phone: [facility] 04-14-2023 12:08-0400 Systolic blood pressure 124 mm[Hg] [employer] Ajit Spasic Work Phone: [facility] 04-14-2023 11:29-0400 Inhaled oxygen flow rate 3 L/min [employer] Ajit Spasic Work Phone: [facility] 04-14-2023 10:19-0400 Body height 165.1 cm [employer] Ajit Spasic Work Phone: [facility] 04-14-2023 10:19-0400 Body weight 74.84 kg [employer] Ajit Spasic Work Phone: [facility] 04-02-2023 11:30-0400 Body height 166.37 cm Kyler Miramontes Other [employer] Other 04-02-2023 11:30-0400 Body mass index (BMI) [Ratio] 27.04 kg/m2 Kyler Miramontes Other [employer] Other 04-02-2023 11:30-0400 Body weight 74.84 kg Kyler Miramontes Other [employer] Other 04-02-2023 11:30-0400 Diastolic blood pressure 80 mm[Hg] Kyler Miramontes Other [facility] [employer] Other 04-02-2023 11:30-0400 Systolic blood pressure 110 mm[Hg] Kyler Miramontes Other [facility] [employer] Other 11-18-2022 11:59-0500 Diastolic blood pressure 94 mm[Hg] Services [facility] [employer] Work Phone: [facility] 11-18-2022 11:59-0500 Heart rate 85 /min [facility] [employer] Work Phone: [facility] 11-18-2022 11:59-0500 Respiratory rate 16 /min [facility] [employer] Work Phone: [facility] 11-18-2022 11:59-0500 SaO2% (BldA) [Mass fraction] 98 % [facility] [employer] Work Phone: [facility] 11-18-2022 11:59-0500 Systolic blood pressure 140 mm[Hg] Services [facility] [employer] Work Phone: [facility] 11-18-2022 11:21-0500 Inhaled oxygen flow rate 3 L/min [facility] [employer] Work Phone: [facility] 11-18-2022 09:23-0500 Body height 166.37 cm Services [facility] [employer] Work Phone: [facility] 11-18-2022 09:23-0500 Body weight 74.38 kg Services [employer] Work Phone: [facility] 11-03-2022 11:30-0500 Body height 166.37 cm Kyler Miramontes Other [employer] Other 11-03-2022 11:30-0500 Diastolic blood pressure 80 mm[Hg] Kyler Miramontes Other [employer] Other 11-03-2022 11:30-0500 SaO2% (BldA) [Mass fraction] 98 % Kyler Miramontes Other [employer] Other 11-03-2022 11:30-0500 Systolic blood pressure 118 mm[Hg] Kyler Miramontes Other [employer] Other 07-31-2022 11:50-0400 Blood Pressure Location [facility] [employer] [facility] 07-31-2022 11:50-0400 Diastolic blood pressure 82 mm[Hg] [facility] [employer] [facility] 07-31-2022 11:50-0400 Heart rate 70 /min [facility] [employer] [facility] 07-31-2022 11:50-0400 Respiratory rate 16 /min [facility] [employer] [facility] 07-31-2022 11:50-0400 Systolic blood pressure 136 mm[Hg] [facility] [employer] [facility] 05-27-2022 09:13-0400 Body temperature 97.9 [degF] [facility] [employer] Work Phone: [facility] 05-27-2022 09:13-0400 Body weight 77.11 kg [facility] Work Phone: [facility] 05-27-2022 09:13-0400 Diastolic blood pressure 82 mm[Hg] [facility] Work Phone: [facility] 05-27-2022 09:13-0400 Heart rate 70 /min [facility] Work Phone: [facility] 05-27-2022 09:13-0400 Respiratory rate 20 /min [facility] Work Phone: [facility] 05-27-2022 09:13-0400 SaO2% (BldA) [Mass fraction] 98 % Services [facility] Work Phone: [facility] 05-27-2022 09:13-0400 Systolic blood pressure 121 mm[Hg] [facility] Work Phone: [facility] 05-27-2022 08:06-0400 Body height 166.37 cm Services [facility] Work Phone: [facility] 05-01-2022 22:19-0400 Diastolic blood pressure 70 mm[Hg] [facility] Work Phone: [facility] 05-01-2022 22:19-0400 Heart rate 86 /min [facility] Work Phone: [facility] 05-01-2022 22:19-0400 Respiratory rate 18 /min [facility] Work Phone: [facility] 05-01-2022 22:19-0400 SaO2% (BldA) [Mass fraction] 99 % [facility] Work Phone: [facility] [facility] 05-01-2022 22:19-0400 Systolic blood pressure 138 mm[Hg] [facility] Work Phone: [facility] 05-01-2022 17:09-0400 Body height 166.37 cm [facility] Work Phone: [facility] 05-01-2022 17:09-0400 Body temperature 99.4 [degF] Services [facility] [employer] Work Phone: [facility] 05-01-2022 17:09-0400 Body weight 77.8 kg Services [facility] [employer] Work Phone: [facility] 04-29-2022 14:29-0400 Body height 165.1 cm Services [facility] [employer] Work Phone: [facility] 04-29-2022 14:29-0400 Body temperature 97.8 [degF] [facility] Work Phone: [facility] 04-29-2022 14:29-0400 Body weight 68.03 kg [facility] [employer] Work Phone: [facility] 04-29-2022 14:29-0400 Diastolic blood pressure 83 mm[Hg] [facility] [employer] Work Phone: [facility] 04-29-2022 14:29-0400 Heart rate 70 /min [facility] [employer] Work Phone: [facility] 04-29-2022 14:29-0400 Respiratory rate 16 /min [facility] [employer] Work Phone: [facility] 04-29-2022 14:29-0400 SaO2% (BldA) [Mass fraction] 100 % [facility] [employer] Work Phone: [facility] 04-29-2022 14:29-0400 Systolic blood pressure 131 mm[Hg] Services [facility] [employer] Work Phone: [facility] 02-19-2022 15:45-0400 Body height 166.37 cm Kyler Miramontes Other [employer] Other 02-19-2022 15:45-0400 Body mass index (BMI) [Ratio] 27.36 kg/m2 Kyler Miramontes Other [employer] Other 02-19-2022 15:45-0400 Body weight 75.75 kg Kyler Miramontes Other [employer] Other 02-19-2022 15:45-0400 Diastolic blood pressure 64 mm[Hg] Kyler Fe Other [employer] Other 02-19-2022 15:45-0400 Systolic blood pressure 110 mm[Hg] Kyler Miramontes Other [employer] Other 01-28-2022 14:00-0400 Body height 166.37 cm Kyler Miramontes Other [employer] Other 01-28-2022 14:00-0400 Body mass index (BMI) [Ratio] 27.27 kg/m2 Kyler Miramontes Other [employer] Other 01-28-2022 14:00-0400 Body weight 75.48 kg Kyler Miramontes Other [employer] Other 01-28-2022 14:00-0400 Diastolic blood pressure 68 mm[Hg] Kyler Miramontes Other [employer] Other 01-28-2022 14:00-0400 Systolic blood pressure 112 mm[Hg] Kyler Miramontes Other [employer] Other 01-14-2022 12:00-0400 Body height 166.37 cm Girish Callaway Other [employer] Other 01-14-2022 12:00-0400 Body mass index (BMI) [Ratio] 25.23 kg/m2 Girish Callaway Other [employer] Other 01-14-2022 12:00-0400 Body weight 69.85 kg Girish Callaway Other [facility] [employer] Other Encounters Encounter Date Encounter Type Care Provider Facility Start: 05-29-2025 ambulatory Joshua SILVEIRA Facility :[facility] Start: 05-17-2025 End: 05-17-2025 ambulatory Ajit E Spasic [employer] Work Phone: [facility] Work Phone: Start: 05-17-2025 End: 05-17-2025 [facility] encounter [facility] Work Phone: Start: 05-09-2025 Registered Recurring Jane Woo [employer]C -[facility] Acute Work Phone: Start: 05-09-2025 End: 05-09-2025 ambulatory Ajit E Spasic [employer] Work Phone: [facility] Work Phone: Start: 05-09-2025 End: 05-09-2025 Patient encounter [facility] Work Phone: Start: 04-18-2025 End: 04-18-2025 Patient encounter procedure Leodan Patricia [facility] -[facility] Work Phone: Start: 04-18-2025 End: 04-18-2025 ambulatory Ajit E Spasic [employer] Work Phone: [facility] Work Phone: Start: 04-18-2025 Registered Recurring Jane Woo [employer]C -[facility] Acute Work Phone: Start: 04-16-2025 End: 04-16-2025 ambulatory Ajit E Spasic [employer] Work Phone: [facility] Work Phone: Start: 04-16-2025 End: 04-16-2025 Patient encounter procedure Leodan Patricia MD -[facility] Infect Dis Work Phone: Start: 04-04-2025 Registered Recurring Jane Woo [employer] Work Phone: Start: 04-04-2025 End: 04-04-2025 ambulatory Ajit E Spasic [employer] Work Phone: [facility] Work Phone: Start: 04-04-2025 End: 04-04-2025 Patient encounter procedure Enrique Pratt MD -[facility] Ambulatory Work Phone: Start: 03-20-2025 End: 03-20-2025 Patient encounter procedure Cb Raines MD -[facility] Neurosurgery Work Phone: Start: 03-14-2025 Registered Recurring Ajit Spa sic [employer] Work Phone: [facility] Acute Work Phone: Start: 03-14-2025 End: 03-14-2025 ambulatory Ajit E Spasic [employer] Work Phone: [facility] Work Phone: Start: 03-14-2025 End: 03-14-2025 Patient encounter procedure Ajit Spasic [employer] Work Phone: [facility]Can[facility] Center Ambulatory Work Phone: Start: 03-06-2025 End: 03-06-2025 Patient encounter procedure Ajit Spasic [employer] Work Phone: [facility]-Ultrasound [place] Work Phone: Start: 03-06-2025 End: 03-06-2025 ambulatory Ajit E Spasic [employer] Work Phone: [facility] Work Phone: Start: 02-26-2025 End: 02-26-2025 ambulatory Ajit E Spasic [employer] Work Phone: [facility] Work Phone: Start: 02-26-2025 End: 02-26-2025 Departed Referred Ajit Spasic [employer] Work Phone: [facility]-LAB [facility] Start: 02-21-2025 ambulatory Joshua JORDANA Facility:[facility] [place] Start: 02-20-2025 End: 02-20-2025 ambulatory Ajit E Spasic Facility:[facility] Start: 02-20-2025 End: 02-20-2025 Departed Referred Ajit Spasic [employer] Work Phone: [facility] Start: 02-16-2025 End: 02-16-2025 ambulatory [facility] Facility:[facility] Start: 02-16-2025 End: 02-16-2025 Departed Referred Ajit Spasic [employer] Work Phone: [facility] Start: 02-15-2025 End: 02-15-2025 Patient encounter procedure Ajit Spasic [employer] Work Phone: [facility] Work Phone: Start: 02-15-2025 End: 02-15-2025 ambulatory Ajit E Spasic Facility:[facility] Start: 02-12-2025 End: 02-12-2025 ambulatory Ajit E Spasic [employer] Work Phone: [facility] Work Phone: Start: 02-12-2025 End: 02-12-2025 Departed Referred Ajit Spasic [employer] Work Phone: [facility] Start: 01-24-2025 End: 01-24-2025 Emergency department patient visit Laura Marte [facility] Start: 01-18-2025 End: 01-18-2025 ambulatory Ajit E Spasic [employer] Work Phone: [facility] Work Phone: Start: 01-18-2025 End: 01-18-2025 Departed Referred Ajti Spasic [employer] Work Phone: [facility] Start: 09-06-2024 End: 09-06-2024 ambulatory Ajit E Spasic Facility:[facility] Start: 09-05-2024 End: 09-05-2024 ambulatory Ajit E Spasic Facility:[facility] Start: 07-24-2024 End: 07-24-2024 Patient encounter procedure [employer] Ajit Spasic Work Phone: [facility]-Ultrasound Cntr for Breast Car Start: 07-24-2024 End: 07-24-2024 ambulatory [employer] Ajit E Spasic Work Phone: [facility] Work Phone: Start: 07-09-2024 End: 07-09-2024 Emergency department patient visit Ambrose Cedeño [facility] Start: 07-06-2024 End: 07-06-2024 Emergency department patient visit [employer] Ajit Spasic Work Phone: [facility]-Emergency Room Work Phone: Start: 07-04-2024 End: 07-04-2024 Patient encounter procedure [employer] Ajit Spasic Work Phone: [facility]-Lab [place] Work Phone: Start: 07-04-2024 End: 07-04-2024 ambulatory [employer] Ajit E Spasic Work Phone: [facility] Work Phone: Start: 06-08-2024 End: 06-08-2024 Patient encounter procedure [employer] Ajit Spasic Work Phone: [facility]-MRI [address] Work Phone: Start: 06-08-2024 End: 06-08-2024 ambulatory [employer] Ajit E Spasic Work Phone: [facility] Work Phone: Start: 05-16-2024 End: 05-16-2024 ambulatory [employer] Ajit E Spasic Work Phone: [facility] Work Phone: Start: 05-16-2024 End: 05-16-2024 Departed Referred [employer] Ajit Spasic Work Phone: [facility] Start: 04-11-2024 End: 04-11-2024 ambulatory [employer] Ajit E Spasic Work Phone: [facility] Work Phone: Start: 04-11-2024 End: 04-11-2024 Patient encounter procedure [employer] Ajit Spasic Work Phone: [facility] Work Phone: Start: 03-16-2024 Non-patient / Non-visit [employer] Ajit Spasic Work Phone: [facility] Gastroenterology Work Phone: Start: 03-16-2024 End: 03-16-2024 Admission to same day surgery center [employer] Ajit Spasic Work Phone: [facility]-Digestive Health Work Phone: Start: 03-16-2024 End: 03-16-2024 ambulatory [employer] Ajit E Spasic Work Phone: [facility] Work Phone: Start: 03-08-2024 End: 03-08-2024 ambulatory [employer] Ajit E Spasic Work Phone: [facility] Work Phone: Start: 03-08-2024 End: 03-08-2024 Patient encounter procedure [employer] Jait Spasic Work Phone: [facility] Work Phone: Start: 03-02-2024 End: 03-02-2024 ambulatory [employer] Ajit E Spasic Work Phone: [facility] Work Phone: Start: 03-02-2024 End: 03-02-2024 Patient encounter procedure [employer] Ajit Spasic Work Phone: [facility] Work Phone: Start: 03-01-2024 Non-patient / Non-visit [employer] Ajit Spasic Work Phone: [facility] Work Phone: Start: 03-01-2024 End: 03-01-2024 Admission to same day surgery center [employer] Ajit Spasic Work Phone: [facility]-Digestive Health Work Phone: Start: 03-01-2024 End: 03-01-2024 ambulatory [employer] Ajit E Spasic Work Phone: [facility] Work Phone: Start: 02-21-2024 End: 02-21-2024 ambulatory [employer] Ajit E Spasic Work Phone: [facility] Work Phone: Start: 02-21-2024 End: 02-21-2024 Patient encounter procedure [employer] Ajit Spasic Work Phone: [facility] Work Phone: Start: 02-09-2024 End: 02-09-2024 ambulatory [employer] Ajit E Spasic Work Phone: [facility] Work Phone: Start: 02-09-2024 End: 02-09-2024 Patient encounter procedure [employer] Ajit Spasic Work Phone: [facility]-Ultrasound Cntr for Breast Car Start: 02-04-2024 End: 02-04-2024 ambulatory [employer] Ajit E Spasic Work Phone: [facility] Work Phone: Start: 02-04-2024 End: 02-04-2024 Patient encounter procedure [employer] Ajit Spasic Work Phone: [facility] Work Phone: Start: 01-21-2024 End: 01-21-2024 ambulatory [employer] Ajit E Spasic Work Phone: [facility] Work Phone: Start: 01-21-2024 End: 01-21-2024 Patient encounter procedure [employer] Ajit Spasic Work Phone: [facility]-Ultrasound [facility] [place] Work Phone: Start: 01-18-2024 End: 01-18-2024 ambulatory [employer] Ajit Spasic Work Phone: [facility] Work Phone: Start: 01-18-2024 End: 01-18-2024 Departed Referred [employer] Ajit Spasic Work Phone: [facility] Start: 10-20-2023 End: 10-20-2023 ambulatory CARRI A VISCI Not Available Start: 10-16-2023 End: 10-16-2023 Emergency department patient visit [employer] Ajit Spasic Work Phone: [facility]-Emergency Room Work Phone: Start: 10-07-2023 End: 10-09-2023 Evaluation and management of inpatient [employer] Ajit Spasic Work Phone: [facility]-[address] [place] Work Phone: Start: 09-28-2023 End: 09-28-2023 Admission to same day surgery center [employer]-Jorge Millanc Work Phone: [facility]-Surgery Center [facility] [place] Start: 09-16-2023 End: 09-16-2023 ambulatory [employer]-Jorge Millanc Work Phone: [facility] Work Phone: Start: 09-16-2023 End: 09-16-2023 Patient encounter procedure [employer]-Jorge Millanc Work Phone: [facility] [employer] Work Phone: Start: 07-13-2023 End: 07-13-2023 Admission to same day surgery center NA [employer] Work Phone: [facility]-Surgery Center [facility] [place] Start: 07-13-2023 End: 07-13-2023 ambulatory . [employer] Work Phone: [facility] Work Phone: Start: 06-30-2023 End: 06-30-2023 ambulatory . [employer] Work Phone: [facility] Work Phone: Start: 06-30-2023 End: 06-30-2023 Patient encounter procedure NA [employer] Work Phone: [facility] [employer] Work Phone: Start: 05-05-2023 (PROC) PROCEDURE [facility] Start: 05-05-2023 End: 05-05-2023 Admission to same day surgery center [employer]Jorge Millanc Work Phone: [facility]-Digestive Health Work Phone: Start: 05-05-2023 End: 05-05-2023 ambulatory NON STAFF [facility] Work Phone: Start: 05-04-2023 End: 05-04-2023 ambulatory NON STAFF [facility] Work Phone: Start: 05-04-2023 End: 05-04-2023 Departed Referred [employer] Ajit Spasic Work Phone: [facility] Services Start: 04-26-2023 End: 04-26-2023 Patient encounter procedure [employer] Ajit Spasic Work Phone: [facility]-Lab [place] Work Phone: Start: 04-14-2023 (PROC) PROCEDURE Kyler Miramontes [facility] Out[facility] Start: 04-14-2023 End: 04-14-2023 Admission to same day surgery center [employer] Ajit Spasic Work Phone: [facility] Work Phone: Start: 04-14-2023 End: 04-14-2023 ambulatory NON STAFF [facility] [employer] Other Start: 04-02-2023 End: 04-02-2023 ambulatory Kyler Miramontes Other [employer] Other Start: 04-02-2023 Office outpatient visit 25 minutes Kyler Miramontes [facility] [place] Start: 02-15-2023 End: 02-15-2023 ambulatory AJIT SPASIC Facility:[facility] Start: 02-09-2023 End: 02-09-2023 [facility] Work Phone: [facility] Work Phone: Start: 02-09-2023 End: 02-09-2023 Departed Referred [facility] Work Phone: [facility] Start: 01-29-2023 End: 01-29-2023 ambulatory AJIT SPACYNTHIA Facility:[facility] Start: 11-18-2022 (PROC) PROCEDURE Kyler Miramontes [facility] Out[facility] Start: 11-18-2022 End: 11-18-2022 Admission to same day surgery center Services [facility] Work Phone: [facility] Work Phone: Start: 11-18-2022 End: 11-18-2022 [facility]ulatory [facility] Work Phone: [facility] Work Phone: Start: 11-12-2022 End: 11-12-[address] ANISA CHONG . Facility:[facility] Start: 11-05-2022 End: 11-05-2022 [facility]ulatory [facility] Work Phone: [facility] Work Phone: Start: 11-05-2022 End: 11-05-2022 Departed Referred [facility] Work Phone: [facility] Start: 11-03-2022 End: 11-03-2022 ambulatory Kyler Miramontes Other [facility] [employer] Other Start: 11-03-2022 Office outpatient visit 25 minutes Kyler Fe [facility] Start: 11-03-2022 End: 11-03-2022 Patient encounter procedure Services [facility] Work Phone: [facility]-XRay [facility] Work Phone: Start: 11-02-2022 End: 11-02-2022 Patient encounter procedure Joshua SILVEIRA [facility] Start: 09-29-2022 End: 09-29-2022 Patient encounter procedure Joshua SILVEIRA [facility] Start: 08-24-2022 End: 08-24-2022 Patient encounter procedure Joshua SILVEIRA [facility] Start: 07-31-2022 End: 07-31-2022 Patient encounter procedure Joshua SILVEIRA [facility] [place] Start: 07-08-2022 End: 07-08-2022 ambulatory [facility] Work Phone: [facility] Work Phone: Start: 07-08-2022 End: 07-08-2022 Patient encounter procedure [facility] Work Phone: [facility]-Lab [facility] [place] Start: 06-24-2022 End: 06-24-2022 Patient encounter procedure [facility] Work Phone: [facility]-MRI [facility] [place] Start: 06-17-2022 End: 06-17-2022 Patient encounter procedure [facility] Work Phone: [facility]-Ultrasound [facility] [place] Start: 06-09-2022 End: 06-09-2022 Patient encounter procedure [facility] Work Phone: [facility]-Ultrasound [facility] [place] Start: 06-02-2022 End: 06-02-2022 Departed Referred [facility] Work Phone: [facility] Start: 05-27-2022 End: 05-27-2022 Registered Recurring [facility] Work Phone: [facility]-Cancer Center Start: 05-07-2022 End: 05-07-2022 Patient encounter procedure [facility] Work Phone: [facility]-Lab [facility] [place] Start: 05-01-2022 End: 05-01-2022 Emergency department patient visit [facility] Work Phone: [facility]-Emergency Room Start: 05-01-2022 End: 05-01-2022 Patient encounter procedure Services [facility] Senior Work Phone: [facility]-XRay [facility] Start: 04-30-2022 End: 04-30-2022 Departed Referred Services [facility] Senior Work Phone: [facility] Start: 04-29-2022 End: 04-29-2022 Emergency department [facility] Work Phone: [facility]-Emergency Room Start: 03-04-2022 (Procedure) Short Kyler Miramontes [employer] [facility] Medical OutPt Start: 03-04-2022 End: 03-04-2022 ambulatory Kyler Miramontes Other [employer] Other Start: 02-19-2022 End: 02-19-2022 ambulatory Kyler Miramontes Other [employer] Other Start: 02-19-2022 Office outpatient visit 25 minutes Kyler Fe [facility] Start: 02-11-2022 (Procedure) Short Kyler Pugh ands [facility] Medical OutPt Start: 02-11-2022 End: 02-11-2022 ambulatory Kyler Fe Other [employer] Other Start: 01-28-2022 End: 01-28-2022 ambulatory Kylerjocelyn Miramontes Other [employer] Other Start: 01-28-2022 Office consultation new/estab patient 60 min Kyler Fe [facility] Start: 01-14-2022 End: 01-14-2022 ambulatory Girish Callaway Other [employer] Other Start: 01-14-2022 Office outpatient ne w 30 minutes Girish Callaway [facility] Neurosurgery Start: 01-21-2021 End: 01-21-2021 Departed Referred [facility] Work Phone: -[facility] Start: 12-24-2020 End: 12-24-2020 Patient encounter procedure Ajit Pettit -MRI [facility] Start: 12-03-2020 End: 12-03-2020 Patient encounter procedure Ajit Pettit -MRI [facility] Start: 12-02-2020 End: 12-02-2020 Patient encounter procedure Ajit Pettit -MRI [facility] Start: 11-05-2020 End: 11-05-2020 Departed Referred Ajit ENCISO [facility] Start: 10-22-2020 End: 10-22-2020 Patient encounter procedure Ajit HaiderXRay [facility] Start: 09-23-2020 End: 09-23-2020 Patient encounter procedure Ajit Pettit -Lab [facility] Procedures Date Procedure Procedure Detail Performing Clinician Start: 04-18-2025 Computed tomography of abdomen and pelvis with contrast Ajit Millanc [employer] Work Phone: Start: 04-18-2025 CT of thorax with contrast Ajit Spasic [employer] Work Phone: Start: 03-14-2025 Hepatitis A virus an tibody, IgM type Ajit Spasic [employer] Work Phone: Comment on above: A negative anti-HAV IgM result suggests no recent orcurrent HAV infection.Performed at: [facility] [address] [id number] Director: Daniel Wen PhD, Phone: [phone] Start: 03-14-2025 Hepatitis B core ant ibody measurement Ajit Spasic [employer] Work Phone: Start: 03-14-2025 Human immunodeficien cy virus antibody test Ajit Spasic [employer] Work Phone: Comment on above: HIV-1/HIV-2 antibodi es and HIV-1 p24 antigen were NOTdetected. There is no laboratory evidence of HIV infection.HIV NegativePerformed at: [facility] [id number] [place] [id number] Director: Daniel Wen PhD, Phone: [phone] Start: 03-06-2025 Duplex scan of lower limb veins Ajit Spasic [employer] Work Phone: Start: 03-06-2025 Ultrasonography of bilateral kidneys Ajit Spasic [employer] Work Phone: Start: 02-26-2025 Urine culture Ajit Spa sic [employer] Work Phone: Start: 02-20-2025 Urine culture Ajit Spa sic [employer] Work Phone: Start: 02-16-2025 Urine culture Ajit Spa sic [employer] Work Phone: Start: 02-15-2025 Screening mammograph y of bilateral breasts Ajit Spasic [employer] Work Phone: Start: 02-12-2025 Urine culture Ajit Spa sic [employer] Work Phone: Start: 01-18-2025 Urine culture Ajit Spa sic [employer] Work Phone: Start: 07-06-2024 Plain chest X-ray [employer] Ajit Spasic Work Phone: Start: 07-06-2024 Computed tomography of abdomen and pelvis with contrast [employer] Ajit Spasic Work Phone: Start: 06-08-2024 MR lumbar spine wo con [employer] Ajit Spasic Work Phone: Start: 03-16-2024 Screening colonoscopy N P-C Ajit Spasic Work Phone: Start: 03-02-2024 X-ray of lumbar spin e, four views [employer] Ajit Spasic Work Phone: Start: 03-01-2024 Injection of local anesthetic into sacroiliac joint [employer] Ajit Spasic Work Phone: Start: 02-09-2024 Ultrasonography of r ight breast [employer] Ajit Spasic Work Phone: Start: 02-04-2024 Screening mammograph y of bilateral breasts [employer] Ajit Spasic Work Phone: Start: 01-21-2024 Ultrasonography of bilateral kidneys [employer] Ajit Millanc Work Phone: Start: 10-09-2023 Stool culture for bacteria [employer] Ajit Millanc Work Phone: Start: 10-08-2023 Computed tomography of abdomen and pelvis with contrast [employer] Ajit Ptetit Work Phone: Start: 09-28-2023 Total hysterectomy v ia vaginal approach [employer] Ajit Millanc Work Phone: Start: 07-13-2023 Hysteroscopy NA [employer] Work Phone: Start: 05-05-2023 Injection of local anesthetic into sacroiliac joint [employer] Ajit Pettit Work Phone: Start: 05-04-2023 Urine culture NA [facility] Work Phone: Start: 04-26-2023 Radiography of thora cic spine [employer] Ajit Millanc Work Phone: Start: 04-14-2023 Epidural injection o f lumbar spine using fluoroscopic guidance [employer] Ajit Pettit Work Phone: Start: 02-09-2023 Urine culture [employer] Piero Pettit Work Phone: Start: 11-18-2022 Injection of spinal epidural space [facility] [employer] Work Phone: Start: 11-05-2022 Urine culture [facility] [employer] Work Phone: Start: 11-03-2022 X-ray of cervical spine [facility] [employer] Work Phone: Start: 08-24-2022 Cystourethroscopy wi dilation of urethral stricture Joshua SILVEIRA Start: 06-24-2022 MRI of head Services [facility] [employer] Work Phone: Start: 06-17-2022 Transvaginal echography [facility] [employer] Work Phone: Start: 06-17-2022 Pelvic echography Servi [facility] [employer] Work Phone: Start: 06-09-2022 US scan of bladder Serv ices [facility] Work Phone: Start: 05-01-2022 Computed tomography of abdomen and pelvis with contrast Services [facility] Work Phone: Start: 05-01-2022 X-ray of right knee Ser [facility] Work Phone: Start: 04-29-2022 X-ray of left ankle Ser [facility] Work Phone: Start: 12-24-2020 MRI of left [...] for ba cteria, including anaerobic screen Services [facility] Work Phone: Blood culture for ba cteria, including anaerobic screen [facility] [employer] Work Phone: Cholecystectomy Joshua SILVEIRA H/O: hysterectomy S/P hysterectomy [employer] L aura Spasic Work Phone: H/O: hysterectomy Status post hysterectomy [employer] Ajit Spasic Work Phone: Urine culture Services [facility] [employer] Work Phone: Plan of Treatment Date Care Activity Detail Author Start: 04-18-2025 [facility] Start: 04-04-2025 Patient referral [facility] Work Phone: Start: 02-26-2025 Bacteria identified in Urine by Culture Urine Culture [facility] Start: 02-26-2025 Urine culture [facility] Start: 02-12-2025 Bacteria identified in Urine by Culture Urine Culture [facility] Start: 02-12-2025 Urine culture [facility] Start: 01-18-2025 Urine culture [facility] Start: 01-18-2025 Bacteria identified in Urine by Culture Urine Culture [facility] Start: 07-24-2024 Ultrasonography of right breast US breast RT limited [facility] Start: 03-16-2024 [facility] Start: 03-01-2024 [facility] Start: 10-16-2023 Bacteria identified in Blood by Culture [facility] Start: 10-16-2023 [facility] Start: 10-09-2023 Stool culture Stool Culture [facility] Start: 10-09-2023 [facility] Start: 10-09-2023 Referral to financial representative [facility] Start: 10-08-2023 Hospital admission [facility] Start: 10-08-2023 [facility] Start: 10-07-2023 Referral to clinical video game programmer [facility] Start: 09-28-2023 Hospital admission [facility] Start: 09-28-2023 [facility] Start: 07-13-2023 End: 07-13-2023 [facility] Start: 05-05-2023 [facility] Start: 05-04-2023 Bacteria identified in Urine by Culture Urine Culture [facility] Start: 05-04-2023 Urine culture Urine Culture [facility] Start: 04-14-2023 [facility] Start: 02-09-2023 Bacteria identified in Urine by Culture [facility] Start: 11-18-2022 [facility] Start: 11-05-2022 Bacteria identified in Urine by Culture [facility] Start: 06-02-2022 End: 06-02-2022 Departed Referred Departed Referred [facility] Start: 05-27-2022 Registered Recurring Iron deficiency [facility] Start: 05-27-2022 [facility] Start: 05-07-2022 End: 05-07-2022 Patient encounter procedure Departed Clinical [facility] [place] Start: 05-01-2022 Computed tomography of abdomen and pelvis with contrast CT abdomen pelvis w con [facility] Start: 05-01-2022 End: 05-01-2022 Emergency department patient visit Departed Emergency [facility] Angiotensin converti ng enzyme [Enzymatic activity/volume] in Serum or Plasma [facility] Atopobium vaginae DN A [Presence] in Vaginal fluid by NAYELY with probe detection [facility] Bacterial vaginosis associated bacterium 2 DNA [Presence] in Vaginal fluid by NAYELY with probe detection [facility] Chlamydia trachomati s rRNA [Presence] in Cervix by NAYELY with probe detection [facility] Comprehensive metabo lic 2000 panel - Serum or Plasma [facility] CT Abdomen and Pelvi s W contrast IV [facility] CT Chest W contrast IV [facility] Glucose measurement estimated from glycated hemoglobin [facility] Glucose measurement estimated from glycated hemoglobin [facility] Hemoglobin A1c/Hemoglobin.total in Blood [facility] Hepatitis A virus an tibody, IgM type [facility] Hepatitis B core ant ibody measurement [facility] Hepatitis B virus torres rface Ab [Presence] in Serum [facility] Human papilloma viru s 16+18+31+33+35+39+45+51+52+ 56+58+59+66+68 DNA [Presence] in Cervix by Probe with signal amplification [facility] Human papilloma viru s 16+18+31+33+35+39+45+51+52+ 56+58+59+68 DNA [Presence] in Cervix by Probe with signal amplification [facility] Interferon gamma assay [facility] Megasphaera sp type 1 DNA [Presence] in Vaginal fluid by NAYELY with probe detection [facility] Mycobacterium tuberc ulosis stimulated gamma interferon [Interpretation] in Blood Qualitative [facility] Mycobacterium tuberc ulosis stimulated gamma interferon release by CD4+ and CD8+ T-cells [Units/volume] corrected for background in Blood [facility] Mycobacterium tuberc ulosis tuberculin stimulated gamma interferon [Presence] in Blood [facility] Neisseria gonorrhoea e rRNA [Presence] in Cervix by NAYELY with probe detection [facility] Patient Education [facility] Work Phone: Patient referral [facility] Work Phone: Reagin Ab [Presence] in Serum by RPR [facility] Rheumatoid factor [Units/volume] in Serum or Plasma [facility] XR Lumbar spine 4 Views [facility] Immunizations Immunization Date Immunization Notes Care Provider Jaret mitchell 09-19-2021 COVID-19 mRNA, Comirnaty (Pfizer) NA [facility] Work Phone: [facility] 08-29-2021 COVID-19 mRNA, Comirnaty (Pfizer) NA [facility] Work Phone: [facility] NEGATED: Highlighted row has not occurred!10-27-2019 influenza virus vaccine, live, attenuated, for intranasal use Joshua SILVEIRA [facility] Payers Date Payer Category Payer Unknown [id number] 2024 Unknown [id number] 2024 Self-pay [id number] 2024 Unknown [id number] 1979 Unknown [id number] .16.84 0.1.555791.3.579.2.593 1979 Unknown [id number] .16.84 0.1.685216.3.579.2.593 1979 Unknown [id number] 2.16.84 0.1.854787.3.579.2.593 1979 Unknown [id number] 2.16.84 0.1.791364.3.579.2.1259 1979 Unknown [id number] 2.16.8 40.1.767586.3.579.2.727 1979 Unknown [id number] 2.16.8 40.1.847774.3.579.2.727 1979 Unknown [id number] 2.16.8 40.1.019700.3.579.2.727 1979 Unknown [id number] 2.16.8 40.1.258357.3.579.2.727 1979 Unknown [id number] 2.16.8 40.1.946357.3.579.2.727 1979 Unknown [id number] 2.16.8 40.1.939289.3.579.2.727 1960 Medicaid [id number] 50 [id number] Unknown [id number] Unknown [id number] 2.16.8 40.1.455233.3.579.2.531 Unknown [id number] 2.16.8 40.1.498309.3.579.2.531 Unknown [id number] 2.16.8 40.1.033734.3.579.2.531 Unknown [id number] 2.16.8 40.1.321130.3.579.2.531 Unknown [id number] 2.16.8 40.1.366849.3.579.2.531 Unknown [id number] 2.16.8 40.1.941636.3.579.2.531 Unknown [id number] 2.16.8 40.1.594209.3.579.2.531 Unknown [id number] 2.16.8 40.1.317657.3.579.2.531 Unknown [id number] 2.16.8 40.1.614392.3.579.2.531 Unknown [id number] 2.16.8 40.1.168865.3.579.2.531 Unknown [id number] 2.16.8 40.1.434746.3.579.2.531 Unknown [id number] 2.16.8 40.1.738489.3.579.2.531 Unknown [id number] 2.16.8 40.1.452873.3.579.2.531 Unknown [id number] 2.16.8 40.1.094932.3.579.2.531 Unknown [id number] 2.16.8 40.1.523482.3.579.2.531 Unknown [id number] 2.16.8 40.1.099397.3.579.2.531 Social History Date Type Detail Facility Start: 09-25-2019 End: 09-05-2024 Tobacco smoking status NHIS Smoker (finding) [facility] Start: 1980 Sex Assigned At Female F [facility] Sex Assigned At [facility] Start: 07-31-2022 Tobacco smoking status Heavy t obacco smoker (finding) [facility] Start: 03-01-2024 End: 03-16-2024 Tobacco smoking status NHIS Current some day smoker [facility] Sexual Orientation [facility] Start: 01-15-2010 End: 03-07-2025 Sex Female (finding) [facility] Start: 03-08-2025 End: 04-16-2025 Tobacco smoking status NHIS Smokes tobacco daily (finding) [facility] NEGATED: Highlighted row [facility] Goals Date Patient Goal Desired Activity /State Functional Status Date Assessment Result Facility 01-24-2025 Functional Status N/A [facility] 07-09-2024 Functional Status N/A [facility] 10-09-2023 Functional status Patient at Baseline [facility] Work Phone: 11-02-2022 Functional Status N/A [facility] 08-24-2022 Functional Status N/A [facility] 07-31-2022 Functional Status N/A [facility] Mental Status Date Assessment Result Facility 10-09-2023 Cognitive function Cognitive Sta tus Patient at Baseline [facility] Work Phone: Clinical Notes 01-14-2022 to 05-09-2025 Note Date & Type Note Facility 05-09-2025 Progress note [facility] enter 03-14-2025 Evaluation note Diagnosis Onset Date Resolution Leukocytosis acute March 14, 8:35am Lumbosacral spondylosis acute [facility] 2024 8:25am Trochanteric bursitis acute Joseph 2024 8:25am Leukocytosis acute April 04 9:39am [facility] Work Phone: 1(240) 890-196206-11-2025 Evaluation note* Diagnosis Onset Date Resolution Status Admit Date Leukocytosis acute March 14, 8:35am Lumbosacral spondylosis acute [facility] 2024 8:25am Trochanteric bursitis acute Mar 8:25am Leukocytosis acute April 04 9:39am Leukocytosis acute April 16 025 1:55pm [facility] Work Phone: 1(703) 572-487206-11-2025 Evaluation note* Diagnosis Onset Date Resolution Status Admit Date Leukocytosis acute March 14 8:35am Lumbosacral spondylosis acute J une 2024 8:25am Trochanteric bursitis acute Mar 8:25am Leukocytosis acute April 04 9:39am Leukocytosis acute April 16, 025 1:55pm Chronic migraine without aur a without status migrainosus, not intractable acute May 09, 2025 9:06am Epidural lipomatosis acute Augu 2024 9:06am Seizure disorder acute May 092024 9:06am [facility] Work Phone: 1(939) 595-886106-11-2025 Evaluation note* Diagnosis Onset Date Resolution Status Admit Date Leukocytosis acute March 14, 2 025 8:35am Lumbosacral spondylosis acute J une 2024 8:25am Trochanteric bursitis acute Joseph e 2024 8:25am Leukocytosis acute April 04 9:39am Leukocytosis acute April 16, 025 1:55pm Chronic migraine without aur a without status migrainosus, not intractable acute May 09, 2025 9:06am Epidural lipomatosis acute Augu 2024 9:06am Seizure disorder acute May 092024 9:06am Leukocytosis acute May 09, 2025 9:53am [facility] Work Phone: 1(701) 606-776906-03-2025 [facility] [place] [address] [place] [address] Ultrasound Report Signed Patient: Rachel Mcgarry MR#: [id number] : 1980 Acct:[id number] Age/Sex: 45 / F ADM Date: 5 Loc: Room: Type: [facility] Attending Dr: Ajit DEJESUS Ordering Provider: [...] Goss MD,FACS,FSVS 03/06/2025 1:25 PM Dictation Location: [place] [address] Tech: Janet Krause Transcribed By: ROSA MARIA 03/06/25 1325 Dictated By: Marcio Goss MD 03/06/25 1325 Signed By: 03/06/255 [facility] Work Phone: 1(350) 388-250406-03-2025 Radiology Diagnostic [facility] [place] [address] Ultrasound Report Signed Patient: Rachel Mcgarry MR#: [id number] : 1980 Acct:[id number] Age/Sex: 45 / F ADM Date: 5 Loc: Room: Type: [facility] Attending Dr: Ajit DEJESUS Ordering Provider: OLEG Sharp Date of Service: 03/06/25 US/US renal BI: Recurrent UTI;Sensation of pressure in bladder area;[facility] medic Copies to: OLEG Sharp~ BILATERAL RENAL AND [...] Yañez M.D. 03/06/2025 12:58 PM Dictation Location: [facility] Tech: Janet Krause Transcribed By: ROSA MARIA 03/06/25 1258 Dictated By: Eda Yañez MD 03/06/25 1258 Signed By: 03/06/25 125 [facility] Work Phone: 1(886) 757-332404-23-2025 Hospital Discharge instructions Patient Education 01/24/2025 12:25:32 Urinary Tract Infection, Adult, Crhm-me-Ksto Urinary Tract Infection, Adult A urinary tract [...] Follow these instructions at home: Medicines Take hxdz-ixs-xkjldlx and prescription medicines only as told by [...] provider. Document Revised: 04/27/2021 Document Reviewed: 05/02/2021 [employer] Patient Education 2023 [employer]. Follow Up Care 01/24/2025 11:32:42 With:AJIT PETTIT Address: [place] [address]- Business (1) When:01/27/2025 12:15:31 Comments:Call Dr for diagnosis based follow up [facility] 04-23-2025 Evaluation + Plan noteExtracted from: Title:ED Note Author:Hussein Ramey PA-C te:01/24/25 UTI symptoms (R39.9: Unspeci fied symptoms and signs involving the genitourinary system) Orders: ciprofloxacin, 500 mg = 1 tab(s), Oral, q12hr, X 3 day(s), # 6 tab(s), Refills(s) 0, [id number], 165, cm, 01/24/25 11:37:00 EDT, Height/Length Dosing, 70.1, kg, 01/24/25 11:37:00 EDT, Weight Dosing fluconazole, 300 mg = 2 tab(s), Tab, Oral, Once, Stop date 01/24/25 12:04:00 EDT, STAT, Start date 01/24/25 12:04:00 EDT, 01/24/25 12:04:00 EDT fluconazole, 150 mg = 1 tab(s), Oral, q7day, take on 01/31/2025, # 2 tab(s), Refills(s) 0, [id number], 165, cm, 01/24/25 11:37:00 EDT, Height/Length Dosing, 70.1, kg, 01/24/25 11:37:00 EDT, Weight Dosing ondansetron, 4 mg = 1 tab(s), Tab-Dis, Oral, Once, Stop date 01/24/25 12:04:00 EDT, STAT, Start date 01/24/25 12:04:00 EDT, 01/24/25 12:04:00 EDT ondansetron, 4 mg = 1 tab(s), Oral, q8hr, PRN Nausea/Vomiting, # 12 tab(s), Refills(s) 0, [id number], 165, cm, 01/24/25 11:37:00 EDT, Height/Length Dosing, 70.1, kg, 01/24/25 11:37:00 EDT, Weight Dosing phenazopyridine, 100 mg = 1 tab(s), Oral, TID, X 7 day(s), # 21 tab(s), Refills(s) 0, [id number], 165, cm, 01/24/25 11:37:00 EDT, Height/Length Dosing, 70.1, kg, 01/24/25 11:37:00 EDT, Weight Dosing phenazopyridine, 100 mg = 1 tab(s), Tab, Oral, Once, Stop date 01/24/25 12:04:00 EDT, STAT, Start date 01/24/25 12:04:00 EDT, 01/24/25 12:04:00 EDT [facility] 04-23-2025 NoteED Patient Education Note Obstetrics and [...] these instructions at home: Medicines ??? Take zmom-doy-wfikihp and prescription medicines only as told by [...] provider. Document Revised: 04/27/2021 Document Reviewed: 05/02/2021 [employer] Patient Education ? 2023 [facility] Hospital Discharge instructions Patient Education 07/09/2024 [...] that is high in altitude, where thinner, glue drier operator air causes more fluid loss. Doing exercises [...] of fat or sugar. General instructions Take lzzi-lhp-nklkuzm and prescription medicines only as told by [...] provider. Document Revised: 04/19/2023 Document Reviewed: 04/19/2023 [employer] Patient Education 2023 [employer]. 07/09/2024 14:17:29 Viral Illness, Adult Viral Illness, [...] Medicines to treat symptoms. These can include snix-erq-kfgiwnm medicine for pain and fever, medicines for cough or congestion, and medicines for diarrhea. Antiviral medicines. These medicines are available only for certain types of viruses. Some viral illnesses can be prevented with vaccinations. A common example is the flu shot. 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 Avoid touching your nose, eyes, and mouth, [...] provider. Document Revised: 10/06/2023 Document Reviewed: 07/21/2023 [employer] Patient Education 2023 [employer]. Follow Up Care 07/09/2024 12:40:30 With:AJIT PETTIT Address: [address] [place] [address]- Business (1) When:07/12/2024 14:17:20 Comments:Call the office [...] you develop any new or worsening symptoms. [facility] 10-06-2024 NoteED Patient Education Note Infectious Disease [...] Medicines to treat symptoms. These can include qphb-bdq-ekujqvu medicine for pain and fever, medicines for cough or congestion, and medicines for diarrhea. ? Antiviral medicines. These medicines are available only for certain types of viruses. Some viral illnesses can be prevented with vaccinations. A common example is the flu shot. Follow these instructions at home: Medicines ? Take wfsg-dqc-pkvdzbi and prescription medicines only as told by [...] and water are not available, use hand wood pile driver operator. ? Avoid touching your nose, eyes, and mouth, especial (more content not included)...[facility]10-06-2024 NoteED Patient Education Note Infectious Disease Viral [...] Medicines to treat symptoms. These can include tulb-veb-xnkcgig medicine for pain and fever, medicines for cough or congestion, and medicines for diarrhea. ? Antiviral medicines. These medicines are available only for certain types of viruses. Some viral illnesses can be prevented with vaccinations. A common example is the flu shot. Follow these instructions at home: Medicines ? Take qqje-sdi-vlpjouz and prescription medicines only as told by [...] and water are not available, use hand wood pile driver operator. ? Avoid touching your nose, eyes, and mouth, especial (more content not included)...[facility]10-06-2024 Evaluation + Plan note Extracted from: Title:ED Note Author:Ambrose Cedeño DO Date:1 Malaise (R53.81: Other malai se) Viral syndrome (B34.9: Viral infection, unspecified) Orders: Basic Metabolic Panel Beta hCG Qual CBC w/ Auto Diff ED Cardiac Monitoring eGFR Hepatic Function Panel Oxygen Saturation Oxygen Therapy PT & PTT Saline Lock Insert Troponin 0 Hr. Troponin 1 Hr. XR Chest Single View [facility] Discharge summary Author Salazar Cabrera [facility] October 09, 2023 6:42pm Note Date/Time October 09, 2023 1: 22pm [facility] [address] [place] [address] Discharge Summary Signed Patient: Rachel Mcgarry MR#: [id number] : 1980 Acct:[id number] Age/Sex: 43 / F Adm Date: 4 Loc: Room: [address] [place] [address]: Salazar Cabrera DO Copies to: OLEG Sahrp APRN Shawn J Warner, DO~ Providers Date of Admission: 10/08/23 Date of Discharge: 10/09/23 Discharging Provider: Salazar Cabrera Additional Discharging Provider: Salazar Cabrera Primary Care Provider: Ajit Pettit Consults: 10/07/23 23:27 Consult to Adult Hospitalist Routine 10/08/23 07:21 Consult to computing consultant Routine 10/09/23 06:50 Consult to Obstetrics Routine [...] abdominal pain. CT abdomen pelvis done at [place] showed nonspecific hyperemia and thickening of the small bowel distally suggestive of enteritis but nonacute otherwise and no postoperative complications were noted. She was transferred to [facility] for evaluation by recent surgical team. She was noted to have elevated lactate and given IV hydration as well as Zosyn. Lactate resolved with hydration. [place] with bloating and pain increasing with liquid intake unchangedfrom previous and no surgical complications again noted. [facility] followed ongoing through hospital stay. She was also seen by psychiatry with increase insertraline due to reports of depression and suicidal thoughts, should follow-[facility] with [facility] behavioral [facility] after discharge. Date of [...] % (Auto) 70.1, Lymph % (Auto) 16.5, [place] % (Auto) 9.5, Eos % (Auto) 3.5, Baso % (Auto) 0.4, Nucleat RBC Rel Count 0.1, Neut # (Auto) 9.6 H, Lymph # (Auto) 2.2, [place] # (Auto) 1.3 H, Eos # (Auto) [...] signed by Salazar Cabrera DO> 10/09/23 1842 [facility] Work Phone: 1(123) 814-943901-06-2024 Progress note Author BONG Velez [facility] October 09, 2023 8:22am Note Date/Time October 09, 2023 8: 22am [facility] [address] [place] [address] Progress Note Signed Patient: Rachel Mcgarry MR#: [id number] : 1980 Acct:[id number] Age/Sex: 43 / F Adm Date: 4 Loc: Room: [address] [place] [address] Type: ADM IN Attending Dr: Salazra Cabrera DO Copies to: ~ Date of [...] % (Auto) 70.1, Lymph % (Auto) 16.5, [place] % (Auto) 9.5, Eos % (Auto) 3.5, Baso % (Auto) 0.4, Nucleat RBC Rel Count 0.1, Neut # (Auto) 9.6 H, Lymph # (Auto) 2.2, [place] # (Auto) 1.3 H, Eos # (Auto) 0.5 H, Baso # (Auto) 0.1 10/08/23 22:27: POC Glucose 194 10/08/23 18:21: POC Glucose 265, POC Glucose Comment Glu2: cleaned meter 10/08/23 13:07: POC Glucose 166, POC Glucose Comment Glu2: cleaned meter 10/08/23 10:31: Lactic Acid 1.9 10/08/23 08:20: Urine Color [place] A, Urine Appearance Turbid A, Urine pH 5.5, Ur Specific [place] > 1.050 H, Urine Protein 30 H, [...] <Electronically signed by BONG Velez> 10/09/23 0822 [facility] Work Phone: 1(687) 693-738801-05-2024 Consult note Author Teo crandall [facility] October 08, 2023 4:59pm Note Date/Time October 08, 2023 11 :30am [facility] [address] [place] [address] Psychiatry Consult Note Signed with Piotr Patient: Rachel Mcgarry MR#: [id number] : 1980 Acct:[id number] Age/Sex: 43 / F Adm Date: 4 Loc: Room: [address] [place] [address] Type : ADM IN Attending Dr: Rosanna [...] negative unless noted below or in HPI ON LICENSE OF [facility] Medical History (Updated 10/08/23 @ [...] Color Urine Appearance Urine pH Ur Specific [place] Urine Protein Urine Glucose (UA) Urine Ketones Urine Occult Blood Urine Nitrite Ur Leukocyte Esterase Urine RBC Urine WBC 10/08/23 08:20 RBC Hgb Hct MCV MCH MCHC RDW Plt Count MPV Sodium Potassium Chloride Carbon Dioxide Anion Gap BUN Creatinine Calcium Total Bilirubin AST ALT Alkaline Phosphatase Total Protein Albumin Urine Color [place] A Urine Appearance Turbid A Urine pH 5.5 Ur Specific [place] > 1.050 H Urine Protein 30 H [...] <Electronically signed by Teo Taylor MD> 10/08/23 1414 [facility] Work Phone: 1(957) 773-435501-05-2024 Progress note Author Salazar Cabrera [facility] October 08, 2023 4:41pm Note Date/Time October 08, 2023 11 :44am [facility] [address] [place] [address] Hospitalist Progress Note Signed Patient: Rachel Mcgarry MR#: [id number] : 1980 Acct:[id number] Age/Sex: 43 / F Adm Date: 4 Loc: 3S Room: [address] [place] [address] Type: ADM IN Attending Dr: Rosanna Grullon [...] Lactic acidosis chronic leukocytosis -CT abdomen pelvis?from [place] showed nonspecific hyperemia and thickening of small bowel distally suggestive of enteritis, nonacute otherwise, no postsurgical complications noted -Repeat CT abdomen pelvis?increasing bibasilar atelectasis, fatty liver, no bowel or urinary tract obstruction, no pelvic hematoma or significant free fluid, otherwise unchanged CT abdomen pelvis -Initial lactate 3.0--> 2.6--> 2.0--> 1.9 -Continue Zosyn, IVF. Afebrile. Scheduled dicyclomine. 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 She is tolerating po without nausea/emesis -but some abdominal distension, without rebound. Psychiatrist has increased her SSRI and will follow up as out pt. Hospitalist feels that she has enteritis. She is cleared from the MANAGER BEHAVIOR post op standpoint and we are signing off. Pt will be transferred to a medical floor for continued management. Addendum Documented By: BONG Velez 10/08/23 1307 Addendum Signed By: <Electronically signed by BONG Velez> 10/08/23 1307 Date of Service: 10/08/2023 MANAGER BEHAVIOR - HPI History of Present Illness Chief Complaint: Abdominal pain with emesis Planned Procedure: S/P TLH 09/28/2023 HPI: Rachel presented to [place] yesterday with abdominal pain/distension and emesis.Her lactic acid was 3.0,WBS 20k in ER,Sodium [address] scan compatible with enteritis. She was transferred to [facility] for observation and treatment. Pt with Chronic leukocytosis as followed by hematology for 2 years Review of Systems Review of Systems All other systems reviewed & are negative unless noted below or in HPI ON LICENSE OF [facility] Medical History (Updated 10/08/23 @ [...] Reason: Nausea And Vomiting Stop: 10/06/24 22:53 MANAGER BEHAVIOR - Exam Physical Exam Vital signs: Temp [...] Present normal affect, suicidal ideation and depressed MANAGER BEHAVIOR - Results Laboratory Results - Last 48 [...] Albumin 3.7, Globulin 2.4, Albumin/Globulin Ratio 1.5 MANAGER BEHAVIOR - A/P (1) Abdominal pain: Plan: Post [...] By: <Electronically signed by BONG Velez> 10/08/23 5928 [facility] Work Phone: 1(274) 499-681901-05-2024 Consult note Author Rosanna Grullon [facility] October 08, 2023 7:00am Note Date/Time October 08, 2023 1: 06am [facility] [address] [place] [address] Hospitalist Consult Note Signed Patient: Rachel Mcgarry MR#: [id number] : 1980 Acct:[id number] Age/Sex: 43 / F Adm Date: 4 Loc: 3S Room: [address] [place] [address] Type: ADM IN Attending Dr: Beltran Velez MD Copies to: MD Ajit Davis, LADLE HANDLER-C CHRISTINA Echavarria MD-NOMS~ HPI DATE OF CONSULTATION: 10/08/23 REQUESTING PROVIDER: Beltran Velez Consult Narrative Reason for Consult: elevated lactic acid, T2DM, leukocytosis HPI: Ms. Mcgarry is a 43-year-old female with a PMH of T2DM, seizure disorder, recent hysterectomy that was transferred here to [facility] to obstetrics for abdominal pain. Hospitalist team has been consulted for management of T2DM, elevated lactic acid and leukocytosis. Patient arrived to the [facility] emergency room via EMS for lower [...] 28. She been seen in the [facility] emergency room for vaginal infection [...] unless noted in the HPI or below. ON LICENSE OF [facility] Medical History (Updated 10/08/23 @ [...] 23:00 Lactated Ringers IV 10/06/24 22:59 .Q8H [facility] Piperacillin Sod/Tazobactam Sod 3.375 gm in 100 mls @ 200 mls/hr 10/07/23 23:00 Zosyn IV Q6H [facility] Ibuprofen 600 mg 10/08/23 02:00 Ibuprofen 600 [...] 10/10/[address] dyereceived at the [facility] Documented By: Namrata Munoz APRN 10/08/23 0106 Signed By: <Electronically signed by CHRISTINA Munoz> 10/08/23 0153 <Electronically signed by Rosanna Grullon MD> 10/08/23 0700 [facility] Work Phone: 1(665) 727-333208-02-2023 [facility] Evaluation note* Encounter Date Diagnosis Assessment [...] activities and movements while managing her pain. [employer] Other 01-31-2023 Evaluation note* Encounter Date Diagnosis [...] cervical spine to further evaluate her pain. [employer] Other 01-30-2023 Hospital Discharge instructions Patient Education [...] to keep your urine pale yellow. ?Take xntu-kvw-tdzequs or prescription medicines. ?Eat foods that are high in fiber, such as beans, whole grains, and fresh fruits and vegetables. ?Limit foods that are high in fat and processed sugars, such as fried or sweet foods. General instructions Take nzsx-cda-hjvihow and prescription medicines only as told by [...] the muscles that help control urination. Take kvps-nxo-elyvgfg and prescription medicines only as told by your health care provider. Contact a health care provider if your symptoms do not improve or get worse. This information is not intended to replace advice given to you by your health care provider. Make sure you discuss any questions you have with your health care provider. Document Released: 07/17/2010 Document Revised: 03/30/2019 Document Reviewed: 03/30/2019 [employer] Patient Education 2020 [email or web address]. Follow Up Care 10/22/2022 11:17:07 With:JORDANA BALDERAS, Joshua Dempsey, URL Address: [address] [employer] [facility] [address] [employer] [address] [address] Business (1) When: Unknown [facility] [id number] Hospital Discharge instructions Patient Education 08/24/2022 15:50:28 [...] Care 07/31/2022 12:32:41 With:Joshua SILVEIRA Address: [address] [employer] [facility] [address] [address]- Business (1) When:6 weeks Comments:Call for followup appointment. Monitor the urinary low after the dilation today. Have a great Thanksgiving. [facility]10-28-2022 Hospital Discharge instructions Patient Education 07/31/2022 [...] including vitamins, herbs, eye drops, creams, and mzge-nau-tvdpdyv medicines. ?Whether you are or may be [...] 07/17/2008 Document Revised: 01/09/2020 Document Reviewed: 07/25/2018 [employer] Patient Education 2020 [email or web address]. Follow Up Care 07/24/2022 16:53:57 With:JORDANA BALDERAS, Joshua Dempsey, URL Address: [facility] [employer] [address] [place], [place] [id number]- When: Unknown Comments:Cysto/ Urodynamics [facility] 05-19-2022 Evaluation note* Encounter Date Diagnosis Assessment [...] and GT bursa injection in the future. [employer] Other 04-27-2022 Evaluation note* Encounter Date Diagnosis [...] progress notes from her referring physician at [facility]. I also independently reviewed previous MRI [...] - M79.7) Continue with medication management through [facility]. I will also refer her to [...] negative findings were considered in medical decision-making. [employer] Other 04-13-2022 Evaluation note* Encounter Date Diagnosis Assessment Notes Treatment Notes Treatment Clinical Notes Jan, Neck pain (ICD-10 - M54.2) I really do not see any surgical intervention that would be warranted in either her cervical or lumbar spine. I think continue conservative therapy is warranted. Jan, Low back pain at multiple sites (ICD-10 - M54.50) Jan, Fibromyalgia (ICD-10 - M79.7) [employer] Other consult note Author Jasmin Velázquez [facility] May 27, 2022 11:47am Note Date/Time May 27, 2022 11 :30am [facility] at [address] [place] [address] Hem/Onc Consult Note - OP Signed Patient: Rachel Mcgarry MR#: [id number] : 1980 Acct:[id number] Age/Sex: 42 / F Type: REG RCR Copies to: [facility]~ HPI Date/Time of Service: Date of Service: 05/27/2022 Time of Service: 11:29 Referring Provider/PCP: Referring Provider: [facility]: [facility] - History of Present Illness Reason for Consultation: Leukocytosis Chief Complaint: Patient is here for a referral from Ajit Pettit for leukocytosis. [facility] labs. Patient states that she [...] the process of being referred to a dog track kennel manager. Patient smokes averaging half pack to 1 [...] been very well within the normal range ON LICENSE OF [facility] - Medical History Medical History: [...] cancer. Patient is being referred to a dog track kennel manager. We instructed her to call back if there is any concern for further definitive guidance and recommendations - Time with Patient Coordination of Care & Counseling Time: Greater than 50% of time spent with patient was for coordination of care (as documented) and yxnm-fj-mebh counseling of patient and/or family. Dictated By: Jasmin Velázquez MD DD/ [id number] Signed By: <Electronically signed by Jasmin Velázquez MD> 05/27/22 1147 [facility] Work Phone: Evaluation + Plan note Future Appointments Appointment Date:08/18/2022 08:00:00 AM Scheduled Provider: Location:[facility] Appointment Type:Urology CALL PAT FT Appointment Date:08/24/2022 02:00:00 PM Scheduled Provider: Location:[facility] Appointment Type:Urology FT Appointment Date:08/24/2022 03:00:00 PM Scheduled Provider: Location:[facility] Appointment Type:Urology FT [facility] Evaluation + Plan note Future Appointments Appointment Date:09/29/2022 10:15:00 AM Scheduled Provider:Joshua SILVEIRA MD Location:[facility] Appointment Type[facility]URO [facility] Future Appointments Appointment Date:12/29/2022 10:45:00 AM Scheduled Provider:Joshua SILVEIRA MD Location:[facility] Appointment Type:URO Office Visit [facility] Evaluation noteNo Assessments Information Available [facility] InformationNort cinvolve Other Evaluation note* Diagnosis Onset Date Resolution Status Iron deficiency acute Leucocytosis acute Right ovarian cyst acute [facility] Work Phone: evaluation noteNo assessment information available [facility] Work Phone: evaluation note* Diagnosis Onset Date Resolution Status Abdominal pain acute Enteritis acute History of depression acute History of leukocytosis acut e IBS (irritable bowel syndrome) acute Leucocytosis acute Metabolic acidosis acute S/P hysterectomy acute T2DM (type 2 diabetes mellitus) acute [facility] Work Phone: evaluation note* Diagnosis Onset Date Resolution Status Chronic pain acute Lumbosacral spondylosis acut e Sacroiliitis acute [facility] Work Phone: evaluation note* Diagnosis Onset Date Resolution Status Chronic pain acute Lumbosacral spondylosis acut e Sacroiliitis acute Chronic pain acute Lumbar radiculopathy acute Lumbosacral spondylosis acut e Sacroiliitis acute [facility] Work Phone: evaluation note* Diagnosis Onset Date Resolution Status Chronic pain acute Lumbosacral spondylosis acut e Sacroiliitis acute Chronic pain acute Lumbar radiculopathy acute Lumbosacral spondylosis acut e Sacroiliitis acute Chronic pain acute Lumbar radiculopathy acute Lumbosacral spondylosis acut e Sacroiliitis acute [facility] Work Phone: evaluation note* Diagnosis Onset Date Resolution Status Chronic pain acute Lumbar radiculopathy acute Lumbosacral spondylosis acut e Sacroiliitis acute [facility] Work Phone: evaluation note* Diagnosis Onset Date Resolution Status Admit Date Leukocytosis acute March 14 8:35am [facility] Work Phone: History and physical note Author Abi Sunshine [facility] March 16, 2024 8:19am Note Date/Time March 16, 2024 8:20 am [facility] [address] [place] [address] Gastroenterology H&P Signed Patient: Rachel Mcgarry MR#: [id number] : 1980 Acct:[id number] Age/Sex: 44 / F Adm Date: 4 Loc: Room: Type: [facility] Attending Dr: Abi Sunshine DO [...] <Electronically signed by Abi Sunshine DO> 03/16/24818 [facility] Work Phone: Hismmbb general Narrative - Reported* Type Description Date [...] infection, bowel i nfection and flu 2011 [employer] Other History general Narrative - Reported* Type [...] infection, bowel i nfection and flu 2011 [employer] Other Hospital course Narrative No data available for this section [facility] Hospital Discharge instructions No data available for this section [facility] Hospital Discharge instructions Additional Instructions DISCHARGE [...] in an emergency, call the office at [[phone]]. TODAY -Take it easy the rest of [...] FOLLOW UP -Please call the office at [phone] to arrange an appointment to see me in 2 weeks [ ][facility] Work Phone: Hospital Discharge instructions Additional Instructions Follow any previous post-op orders.[facility] Work Phone: Progress note No data available for this section [facility] Progress note Author Enrique Pratt [facility] Note Date/Time May 09, 2025 10: 39[facility] [place] [address] Cancer Center Note Signed Patient: Rachel Mcgarry MR#: [id number] : 1980 Acct:[id number] Age/Sex: 45 / F Type: REG AMB Date of Service: 05/09/25 Copies to: [facility] [employer]~ Assessment & Plan A/P (1) Leukocytosis: Plan Her persistent chronic leukocytosis since 2018 with neutrophilia, mild lymphocytosis and monocytosis is of unclear etiology at this point and require further investigation. Cannot also rule out tobacco smoking related versus an autoimmune process or medication related. I checked the following labs and she is here back for results: TSH, free T4, cortisol level, amylase, lipase, CRP, peripheral blood flow cytometry, BCR ABL by PCR, JAK2 with reflex, BERTHA, RF, BRITTANI, chronic hepatitis panel, HIV, hepatitis C antibodies IgM and to check her urinalysis with micro. Labs on 03/14/2025 revealed persistent leukocytosis with WBC of 15.3 hemoglobin is normal 15.0 RBC indices normal and platelet is normal at 253. WBC differential revealed mild neutrophilia 9.6 ANC. The absolute lymphocyte count is normal at this time 4.3 and the absolute monocyte count is 1.2 minimally elevated the rest of the differential is unremarkable. CRP is 0.7 slightly elevated. Amylase is low at 25. Lipase is normal 43. Angiotensin-converting enzyme is normal 45. Free T4 is normal at 0.69 TSH is normal 1.88. Cortisol level is Low normal 6.7. RF is normal 11.0 BERTHA is negative. - Hepatitis A IgM is negative. Hepatitis B surface antigen is negative hepatitis B surface antibody is nonreactive. Hepatitis B core antibody total isnegative hepatitis C antibody is nonreactive and HIV is nonreactive. - JAK2 with reflex panel came back negative for JAK2 617 exon 12-13 calretinin and MPL. - BCR able by PCR is not detected. - And peripheral blood flow cytometry revealed 4.8% CD10 positive T cells detected and the B cells are polyclonal and T cells have no loss of T cells antigens. Although there is a population of CD10 positive T cells making 4.8% of the total cells. This could represent a population of Follicular T cells, given that T cell disorder may not show any immunophenotypic abnormalities by flow cytometry, thus it cannot be excluded by flow. Correlation therefore with clinical history and morphology is recommended. If T-cell lymphoproliferative disorder is suspected highly than the T-cell gene rearrangement studies may be considered. There is no flow immunophenotypic evidence of a B-cell lymphoproliferative disorder. Morphology or biopsy of any lymph node might require if there are any enlarged lymphadenopathy. Urinalysis revealed cloudy urine but negative nitrate negative leukocyte esterase with 1-2 WBC and 1-2 RBC. Squamous epithelial cells 10-19 high likely contamination. Patient continues to have drenching night sweats. she stated she had 30 lbs unintentional weight loss sin the last 2-3 months. decreased appetite. 05/09/25: Patient is here for 2 months FU on Leukocytosis, questionable T cell disorder, night sweats and weight loss. -T-cell rearrangement testing done on 04/18/2025 revealed no clonal T-cell receptor gamma population was detected. This is with 89% certainty as this PCR technique may not detect all possible T-cell receptor gene rearrangements. If significant suspicion for clonality remains in the T-cell receptor beta with a test called a [id number] is recommended and if both are negative the gamma and beta then the certainty that there is no T-cell rest disease will be 94-99%. The test T-cell receptor gene rearrangement panel will include both the G and B as well. -Patient was seen by infectious disease and they are planning to check for QuantiFERON and C. difficile because she has a history of C. difficile. She hasnot had the C. difficile testing yet but her QuantiFERON and RPR were both negative. - CAT scan of the chest abdomen and pelvis done on 04/18/2025 revealed No suspicious masses or metastatic adenopathy. Large left axillary lymph node withbiopsy clip is noted correlate with the prior pathology. PLAN: Follow observation only for now. Repeat distal receptor gene rearrangement panel for both TCR gamma and TCR beta in 4 months. Repeat CBC with differential CMP LDH and 4 months and see her in 4 months. In the Future, if enlarged LNs detected, then needs LN biopsy and may be bone marrow biopsy then. if no enlarged LNs detected, consider observation if T cellrearrangements are normal. Orders: Orders Complete Blood Count Auto Diff 4 Months D72.829 - Elevated white blood cell count, unspecified, R61 - Generalized hyperhidrosis LDH Lactate Dehydrogenase 4 Months D72.829 - Elevated white blood cell count, unspecified, R61 - Generalized hyperhidrosis T-Cell Gene Rearrangement, PCR 4 Months D72.829 - Elevated white blood cell count, unspecified, R61 - Generalized hyperhidrosis Comprehensive Metabolic Panel 4 Months D72.829 - Elevated white blood cell count, unspecified, R61 - Generalized hyperhidrosis Patient Instructions: cbc,cmp,ldh,t-cell receptor rearrangement in 4 months return 4 months CHEMO PLAN No Active Chemotherapy History of Present Illness RAMU Gold is a 45-year-old nice female with past medical history of lumbar spondylosis and radiculopathy with sacroiliitis and chronic pain and history of C. difficile diarrhea with enteritis and type 2 diabetes mellitus was also history of iron deficiency anemia epilepsy fibromyalgia, IBS, depression and chronic tobacco smoker was referred to hematology clinic to be evaluated for leukocytosis. As noted on frequent labs that her WBC has been elevated between 12,020 3000 since at least 2017. Every time she gets her labs her WBC was elevated except maybe 2 or 3 times since 2018. Her average WBC count has been 14-16,000. Rest of the CBC revealed normal hemoglobin most of the time and normal hematocrit as well as RBC indices and normal platelet count. WBC differential revealed neutrophilia with absolute neutrophil count variable from 88,000-15,000. Absolute lymphocyte count has been normal to mildly elevated anywhere from 3.7-5.8 lately. The rest of the WBC differential revealed occasional intermittent absolute monocytosis with a monocyte count anywhere from 0.9-1.6 mildly elevatedand normal eosinophils and basophils counts. CMP is unremarkable with normal renal function and normal LFTs. Hemoglobin A1c 6.4 and lipid status were elevated with triglyceride in 313 and total cholesterol 212. Current medication includes diazepam 5 mg twice daily dicyclomine Depakote 250 mg at noon and 500 mg twice daily, Cardura, Trulicity, vitamin D 2, ferrous sulfate 325 mg daily, gabapentin 800 mg twice daily, ketorolac, lorazepam as needed, meclizine, melatonin, meloxicam, metformin 500 mg twice daily, multivitamin, promethazine, sertraline, simvastatin, oxybutynin, tizanidine as well. Patient has a lot of complaints over the last 1 to 2 years summarized in a briefas follow: She has been having some chills and night sweats for at least 1 or 2 years. She has been having more night sweats in the last 2 months. She lost about 1015 pounds in the last 2 to 3 months. She has intermittent skin itching mainly in the lower abdomen and upper thigh for what she thought was a rash. She also had mid abdominal pain that radiates to the left lower abdomen. She has alternating diarrhea with constipation and was evaluated before by a CT scanabdomen in July 2020 for. She was told she had IBS. She also had occasionalblood in the urine and was evaluated for kidney stones 3 or 4 times mostly recently early March 2025 and was negative also for kidney stones. She denied history of pancreatitis. Denied history of alcoholism. She has been a smoker 1pack/day since age 8. She has a history of cervical cancer and history of endometriosis and endometrial polyps for that reason hysterectomy was done in September 2024. She also had colon polyps and had a colonoscopy in 09/05/2024 which revealed: 3 polyps removed and 9 mm submucosal nodule in the rectum with internal hemorrhoids. Pathology of the 3 colon polyps revealed tubular adenoma but negative for high- grade dysplasia. Pathology of the rectal submucosal nodule revealed benign submucosal leiomyoma negative for dysplasia or malignancy. Her stools been black because of the iron use. She complains of intermittent joint pain or arthritic pain in the hip mainly. I checked the following labs and she is here back for results: TSH, free T4, cortisol level, amylase, lipase, CRP, peripheral blood flow cytometry, BCR ABL by PCR, JAK2 with reflex, BERTHA, RF, BRITTANI, chronic hepatitis panel, HIV, hepatitis C antibodies IgM and to check her urinalysis with micro. Labs on 03/14/2025 revealed persistent leukocytosis with WBC of 15.3 hemoglobin is normal 15.0 RBC indices normal and platelet is normal at 253. WBC differential revealed mild neutrophilia 9.6 ANC. The absolute lymphocyte count is normal at this time 4.3 and the absolute monocyte count is 1.2 minimally elevated the rest of the differential is unremarkable. CRP is 0.7 slightly elevated. Amylase is low at 25. Lipase is normal 43. Angiotensin-converting enzyme is normal 45. Free T4 is normal at 0.69 TSH is normal 1.88. Cortisol level is Low normal 6.7. RF is normal 11.0 BERTHA is negative. Hepatitis A IgM isnegative. Hepatitis B surface antigen is negative hepatitis B surface antibody is nonreactive. Hepatitis B core antibody total is negative hepatitis C antibody is nonreactive and HIV is nonreactive. - JAK2 with reflex panel came back negative for JAK2 617 exon 12-13 calretinin and MPL. - BCR able by PCR is not detected. - And peripheral blood flow cytometry revealed 4.8% CD10 positive T cells detected and the B cells are polyclonal and T cells have no loss of T cells antigens. Although there is a population of CD10 positive T cells resting 4.8% of the total cells. Given that the cell disorder may not show any immunophenotypic abnormalities by flow cytometry it cannot be excluded to 35 flow. Correlation therefore with clinical history and morphology is recommended. If T-cell lymphoproliferative disorder is suspected highly than the T-cell gene rearrangement studies may be considered. There is no flow immunophenotypic evidence of a B-cell lymphoproliferative disorder. Morphology or biopsy of any lymph node might require if there are any enlarged lymphadenopathy. Urinalysis revealed cloudy urine but negative nitrate negative leukocyte esterase with 1-2 WBC and 1-2 RBC. Squamous epithelial cells 10-19 high likely contamination. Patient continues to have drenching night sweats. she stated she had 30 lbs unintentional weight loss sin the last 2-3 months. decreased appetite. 05/09/25: Patient is here for 2 months FU on Leukocytosis, questionable T cell disorder, night sweats and weight loss. -T-cell rearrangement testing done on 04/18/2025 revealed no clonal T-cell receptor gamma population was detected. This is with 89% certainty as this PCR technique may not detect all possible T-cell receptor gene rearrangements. If significant suspicion for clonality remains in the T-cell receptor beta with a test called a [id number] is recommended and if both are negative the gamma and beta then the certainty that there is no T-cell rest disease will be 94-99%. The test T-cell receptor gene rearrangement panel will include both the G and B as well. -Patient was seen by infectious disease and they are planning to check for QuantiFERON and C. difficile because she has a history of C. difficile. She hasnot had the C. difficile testing yet but her QuantiFERON and RPR were both negative. - CAT scan of the chest abdomen and pelvis done on 04/18/2025 revealed No suspicious masses or metastatic adenopathy. Large left axillary lymph node withbiopsy clip is noted correlate with the prior pathology. Rest of the review of system were reviewed and are negative. Intake Vitals/Pain Assessment 05/09/25 09:59 Weight 68.946 kg BP 112/77 Blood Pressure Location Rt brachial Position Sitting Pulse 80 Pulse Source NIBP Respiration 20 Pulse Oximetry (%) 98 Oxygen Delivery Method room air Are you having pain? Yes Pain Location bilat. leg, abdomen, and head Intake Visit Reasons: Follow Up 4 Weeks Allergies tramadol (From Ultram) Allergy (Unknown, Verified 05/09/25 10:01) Seizure amitriptyline Allergy (Verified 05/09/25 10:01) Seizure Latex, Natural Rubber Allergy (Verified 05/09/25 10:01) Hives nonoxynol 9 (From [place] Plus Spermicidal Jelly) Allergy (Verified 05/09/25 10:01) Hives sulfamethoxazole (From Bactrim) Allergy (Verified 05/09/25 10:01) Seizure trimethoprim (From Bactrim) Allergy (Verified 05/09/25 10:01) Seizure escitalopram (From Lexapro) Adverse Reaction (Verified 05/09/25 10:01) Difficulty Breathing Home Medications - Last Reconciled 05/09/25 by SANDOVAL Berry acetaminophen (Tylenol) 325 mg PO BID diazepam (Valium) 5 mg PO BID dicyclomine 10 mg PO BID PRN divalproex (Depakote) 250 mg PO BID divalproex (Depakote) 500 mg PO BID dulaglutide (Trulicity) 3 mg subcut QWEEK ergocalciferol (vitamin D2) 50,000 units PO QWEEK ferrous sulfate 325 mg PO DAILY gabapentin 800 mg PO BID lorazepam 0.5 mg PO DAILY PRN meclizine 25 mg PO DAILY PRN melatonin 10 mg PO QHS meloxicam 15 mg PO QAM metformin 500 mg PO BID multivitamin 1 tab PO QAM oxybutynin chloride 5 mg PO BID promethazine 25 mg PO Q12HR PRN sertraline 150 mg PO DAILY simvastatin 20 mg PO QHS tizanidine 8 mg PO Q8H PRN Gastrointestinal Is the patient taking opioids for pain control?: No Bowel Protocol for Opioids Given: No Bowel Pattern: Irregular Bowel Movement Aid(s): None Falls Fall Precaution Measures Taken: Patient in chair Nurse's Note: Patient is here for a one month follow up with labs, imaging, and outside notes for review. No concerns voiced at time of intake. 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 Irregular heart beat Vitamin D deficiency Iron deficiency Arthritis neck, back and left shoulder Ruptured lumbar disc L3 Pinched nerve left foot and left hip IBS (irritable bowel syndrome) Type 2 diabetes mellitus without complication, with long-term current use of insulin March 2022 Cyst of right ovary Hypercholesteremia Cervical cancer age 24 Rotator cuff disorder left shoulder 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 Panic attacks Leukocytosis Autonomic epileptic seizures History of depression Anxiety Scoliosis Fibromyalgia Pseudoseizure Surgical History Surgical History Hx of hysterectomy Total BSO 09/28/2023 History of heart surgery as a baby, repaired hole in heart History of endometrial ablation History of D&C x2 H/O left breast biopsy H/O right knee surgery ligament repair as a child Hx of cholecystectomy History of appendectomy Family History Family History Mother Ovarian cancer Heart disease Hypothyroid Myocardial infarction Uterine cancer Neuropathy Legs and Feet H/O heart artery stent Sister Cervical cancer Ovarian cancer Hyperthyroidism pt states that sister is now both Hyper and Hypothyroid Uterine cancer Father Denies family history of Diabetes Social History Social History Smoking status: Current every day smoker Within the past year, how often did you have a drink containing alcohol: monthly or less Within the past year, how many standard drinks containing alcohol did you have on a typical day: 1 or 2 Within the past year, how often did you have six or more drinks on one occasion: never AUDIT-C Alcohol total score: 1 AUDIT-C Alcohol score interpretation: A score less than 3 is consistent with normal alcohol consumption. Review of Systems ROS Details: All systems reviewed & no additional complaints except as documented General: Patient denied fevers, but has been having chills, rigors, 30 lbs weight loss and loss of appetite. Head: Patient denied any headaches or vision changes Thoracic: Patient denied any shortness of breath or cough or hemoptysis Cardiovascular patient denies any chest pain or leg edema GI: Patient denies any nausea vomiting rectal bleed but has alternating constipation with diarrhea : Patient denied gross hematuria. Hematology: Patient denied any bleeding from any source. No easy bruising. Lymphatic: No enlarged LAP anywhere. but has left axillary enlarged LNs in 2023,biopsied and were benign. Skin: Her previous hyperpigmented skin spots on face and upper torso and hyperpigmented skin in lower abdomen and upper thighs bilaterally are improving.poor hygiene fingernails. Neurological patient denies any headache or dizziness or focal weakness or sensory changes. Physical Exam EXAM HEENT normocephalic atraumatic pupils are equal and round Neck supple without thyromegaly or any cervical lymphadenopathy. Chest clear to auscultation bilaterally without wheezing crackles or rhonchi Heart regular rate and rhythm S1-S2 without murmurs gallop or rub Abdomen soft nontender not distended without hepatosplenomegaly or masses clinically Extremities no edema of the lower extremities Skin hyperpigmented skin spots on face and upper torso and hyperpigmented skin scan in lower abdomen and upper thighs bilaterally. poor hygiene fingernails. Lymphatic system no lymphadenopathy in the cervical area axillary areas or inguinal areas bilaterally Neurological exam patient is cooperative alert and oriented x3 no focal deficits. [facility] - [facility] LAB RESULTS BUN, (7-25) 6 mg/dL L 04/18/25, 10:00 Creatinine, (0.60-1.20) 0.49 mg/dL L 04/18/25, 10:00 Est GFR (CKD-EPI) > 60.0 mL/Min 04/18/25, 10:00 Social Determinants of Health Screening SDOH last assessed in clinic: 05/09/25 Does the patient want assistance with any of the above?: No Health Related Social Needs Health related social needs: Food insecurity (Z59.41) and problem related to primary support group (Z63.9) Dictated By: Enrique Pratt MD DD/ [id number] Signed By: <Electronically signed by Enrique Pratt MD> 05/09/25 1039 [facility] Work Phone: reason for referral (narrative)No reason for referral information availableOhiohealth [facility] Hospital Work Phone: Rejqgn for visit NarrativeReferral Ajit Pettit NP Lumbar DiscNort cinvolve Other Summary Purpose Family History Relationship Condition [...] Unknown Hyperthyroidism Unknown father Unknown Advance Directives Advance Directive Response Recorded Date/ Time Advance Directives No June 2:21am Advance Directive Response Recorded Date/ Time Advance Directives No June 3:21am Advance Directive Response Recorded Date/ Time Advance Directives No March 08 5 11:02am Advance Directive Response Recorded Date/ Time [...] Date Unknown February 12, 2025 4:07a m Z12.31 [...] am D72.829 April 18, 2025 9:57 am Reason for Visit Admit Date Leukocytosis March 14, 2025 8:35 am Lumbosacral spondylosis March 20, 2025 8:25am Trochanteric bursitis March 20, 2025 8: 25am Leukocytosis April 04, 2025 9:39a m Leukocytosis April 16, 2025 1:55 pm Chronic migraine without aur a without status migrainosus, not intractable May 09, 2025 9:06am Epidural lipomatosis May 09, 2025 9: 06am Seizure disorder May 09, 2025 9:0 6am Chief Complaint Admit Date Unknown February 12, 2025 4:07a m Z12.31 [...] - Elevated WBC April 16, 2025 1:55pm D72.829 April 18, 2025 9:57 am Follow Up 4 Weeks May 09, 2025 9:5 3am Leukocytosis May 09, 2025 9:5 4am Reason for Visit Admit Date Leukocytosis March 14, 2025 8:35 am Lumbosacral spondylosis March 20, 2025 8:25am Trochanteric bursitis March 20, 2025 8: 25am Leukocytosis April 04, 2025 9:39a m Leukocytosis April 16, 2025 1:55 pm Chronic migraine without aur a without status migrainosus, not intractable May 09, 2025 9:06am Epidural lipomatosis May 09, 2025 9: 06am Seizure disorder May 09, 2025 9:0 6am Leukocytosis May 09, 2025 9:5 3am Chief Complaint Admit Date Unknown February 16, 2025 1:00p m R33.9 February 20, 2025 11:33 am Unknown February 26, 2025 7:43a m N39.0 R39.89 R31.29 March 06, 2025 8:50a m NEW- Leukocytosis March 14, 2025 8:35 am LUMBAR DISC DISORDER WITH MYELOPATHY Mar 8:25am Follow Up 3 Weeks April 04, 2025 9:39a m Ref: Dr. Pratt - Elevated WBC April 16, 2025 1:55pm D72.829 April 18, 2025 9:57 am Follow Up 4 Weeks May 09, 2025 9:5 3am Leukocytosis May 09, 2025 9:5 4am Routine EEG per May 17, 2025 9: 27am Assessments No Assessments Information AvailableNo Assessments Information AvailableNo Assessments Information AvailableNo Assessments Information AvailableNo Assessments Information AvailableNo Assessments Information Available Additional Source Comments INFORMATION SOURCE (unrecogn ized section and content) DATE CREATED AUTHOR 07/25/2019 [facility] DATE CREATED AUTHOR AUTHOR'S ORGANIZ ATION 02/15/2023 [facility] DATE CREATED AUTHOR AUTHOR'S ORGANIZ ATION 10/21/2023 [facility] EPIC DATE CREATED AUTHOR AUTHOR'S ORGANIZ ATION 07/10/2024 [facility] DATE CREATED AUTHOR AUTHOR'S ORGANIZ ATION 02/11/2025 [facility] DATE CREATED AUTHOR AUTHOR'S ORGANIZ ATION 02/28/2025 [facility] DATE CREATED AUTHOR AUTHOR'S ORGANIZ ATION 05/10/2025 [facility] REASON FOR VISIT (unrecogniz ed section and content) LEFT L3,4 TRANSFORAMINAL EPIDURAL STEROID INJ/ELREF BY [facility] FOR LUMBAR DISC HERNIATIONFOLLOW UP AFTER LEFT LTRBILATERAL SACROILIAC JOINT INJECTIONINCREASE BACK PAIN RADIATING LLELEFT L3 AND L4 TRANSFORAMINAL EPIDURAL STEROID INJECTIONF/U INCREASE IN LOW BACK PAIN AND LEFT LE WEAKNESS-LOST TO FOLLOW UP LAST TIMEL4- 5 EPIDURAL STEROID INJ/ELRIGHT SACROILIAC JOINT INJ/EL Care Teams (unrecognized sec tion and content) Team Status: Inactive Member Role Status Dates Services [facility] Primary Care Provider Active OLEG Sharp Attending Provider Active Team Status: Active Member Role Status Lorie Velázquez MD Attending Provider Active Services [facility] Primary Care Provider Active Team Status: Inactive Member Role Status Dates Services [facility] Primary Care Provider Titus Alvarado DO Emergency Provider Active Team Status: Inactive Member Role Status Dates Services [facility] Primary Care Provider OLEG Condon Attending Provider Active Team Status: Inactive Member Role Status Dates Services [facility] Primary Care Provider Titus Bergeron APRN Emergency Provider Active Team Status: Active Member Role Status Dates Services [facility] Primary Care Provider Titus dos santos Team Status: Inactive Member Role Status OLEG Thomson Attending Provider Active Services [facility] Primary Care Provider Titus dos santos Team Status: Inactive Member Role Status Dates Services [facility] Primary Care Provider Titus Miramontes MD Attending Provider Active Team Status: Inactive Member Role Status Dates Ajit E Spasic , LADLE HANDLER-C Attending Provider Active Team Status: Active Member Role Status Dates . [facility] Primary Care Provider Active Team Status: Inactive Member Role Status Dates Kyler Miramontes MD Attending Provider Active . [facility] Primary Care Provider Active Team Status: Inactive Member Role Status Dates Ajit E Spasic , LADLE HANDLER-C Attending Provider Active NON STAFF Primary Care Provider Active Team Status: Active Member Role Status Dates Ajit E Spasic , LADLE HANDLER-C Primary Care Provider Active Team Status: Inactive Member Role Status Dates Ajit E Spasic , LADLE HANDLER-C Primary Care Provider, Attending Provider Active Team Status: Inactive Member Role Status Dates Kyler Miramontes MD Attending Provider Active Ajit E Spasic , LADLE HANDLER-C Primary Care Provider Active Team Status: Inactive Member Role Status Dates Ajit E Spasic , LADLE HANDLER-C Primary Care Provider Active Kyler Miramontes MD Attending Provider Active Team Status: Inactive Member Role Status Dates Ajit E Spasic , LADLE HANDLER-C Primary Care Provider Active Carri Manuel DO [...] MD Other Provider Active Ilene Lopez , FURNITURE FINISHER APPRENTICE Other Provider Active Lilly Alexandre MD Other Provider Active Rangel Tyler MD Other Provider Active Aidan Cardenas MD Other Provider Active Holden De La Cruz MD Other Provider Active Leodan Catalan , DO Other Provider Active Palma Bright MD Other Provider Active Gabriele Vasquez MD Other Provider Active Karina Colvin , LADLE HANDLER-C Other Provider Active Gaurav Peraza MD Other Provider Active Mike Guzman MD Other Provider Active Antonio Teague MD Other Provider Active Jorge Galdamez MD Other Provider Active Kourtney Longoria , DO Other Provider Active Bola Sullivan , DO Other Provider Active Lazaro Dunne , DO Other Provider Active Elvira Nava , FURNITURE FINISHER APPRENTICE Other Provider Active Salazar Cabrera , DO Attending Provider, Other Provider Active Naila Lema MD Other Provider Active Namrata Munoz , FURNITURE FINISHER APPRENTICE Other Provider Active Carole Lundy , FURNITURE FINISHER APPRENTICE Other Provider Active Rosanna Grullon MD Other Provider Active Girish Tolentino MD Other Provider Active Beryl Holguin , FURNITURE FINISHER APPRENTICE Other Provider Active Mabel Lackey , DO Other Provider Active Talita Noel RN Other Provider Active Teo Taylor MD Other Provider Active Ajit Cat Pettit , LADLE HANDLER-C Primary Care Provider Active Team Status: Inactive Member Role Status Dates Ajit Cat Pettit , LADLE HANDLER-C Primary Care Provider Active Diego Noble , DO Emergency Provider Active Team Status: Inactive Member Role Status Dates Ajit Cat Millanc , LADLE HANDLER-C Attending Provider Active Start: January 18, 2024 End: January 18, 2024 Team Status: Inactive Member Role Status Dates Ajit Lariossic , LADLE HANDLER-C Primary Care Provi tirso, Attending Provider Active Start: January 21, 2024 End: January 21, 2024 Team Status: Inactive Member Role Status Dates Ajit Cat Lariossic , LADLE HANDLER-C Primary Care Provi tirso, Attending Provider Active Start: February 04, 2024 End: February 04, 2024 Team Status: Inactive Member Role Status Dates Ajit Cat Lariossic , LADLE HANDLER-C Primary Care Provi tirso, Attending Provider Active Start: February 09, 2024 End: February 09, 2024 Team Status: Inactive Member Role Status Dates Ajit Cat Lariossic , LADLE HANDLER-C Primary Care Provider Active Start: February 21, 2024 End: February 21, 2024 Kyler Miramontes MD Attending Provider Active Sta rt: February 21, 2024 End: February 21, 2024 Team Status: Inactive Member Role Status Dates Ajit Cat Millanc , LADLE HANDLER-C Primary Care Provider Active Start: March 01, 2024 End: March 01, 2024 Kyler Miramontes MD Attending Provider Active Sta rt: March 01, 2024 End: March 01, 2024 Team Status: Active Member Role Status Dates Ajit Cat Millanc , LADLE HANDLER-C Primary Care Provider Active Start: March 01, 2024 Kyler Miramontes MD Attending Provider, Other Provider Active Start: March 01, 2024 Team Status: Inactive Member Role Status Dates Ajit Pettit LADLE HANDLER-C Primary Care Provider Active Start: March 02, 2024 End: March 02, 2024 Kyler Miramontes MD Attending Provider Active Sta rt: March 02, 2024 End: March 02, 2024 Team Status: Inactive Member Role Status Dates Ajit Pettit , LADLE HANDLER-C Primary Care Provider Active Start: March 08, 2024 End: March 08, 2024 Kyler Miramontes MD Attending Provider Active Sta rt: March 08, 2024 End: March 08, 2024 Team Status: Inactive Member Role Status Dates Ajit Pettit , LADLE HANDLER-C Primary Care Provider Active Start: March 16, 2024 End: March 16, 2024 Abi Sunshine DO Attending Provider Active St art: March 16, 2024 End: March 16, 2024 Team Status: Active Member Role Status Dates Ajit Pettit LADLE HANDLER-C Primary Care Provider Active Start: March 16, 2024 Abi Sunshine DO Attending Provider, Other Provider Active Start: March 16, 2024 Team Status: Inactive Member Role Status Dates Ajit Pettit LADLE HANDLER-C Primary Care Provider Active Start: April 11, 2024 End: April 11, 2024 Alicia Villalobos NP Attending Provider Active Start: April 11, 2024 End: April 11, 2024 Team Status: Inactive Member Role Status Dates Ajit Pettit LADLE HANDLER-C Attending Provider Active Start: May 16, 2024 End: May 16, 2024 Team Status: Inactive Member Role Status Dates Ajit Pettit LADLE HANDLER-C Primary Care Provi tirso, Attending Provider Active Start: June 08, 2024 End: June 08, 2024 Team Status: Inactive Member Role Status Dates Ajit Pettit , LADLE HANDLER-C Primary Care Provi tirso, Attending Provider Active Start: July 04, 2024 End: July 04, 2024 Team Status: Inactive Member Role Status Dates Ajit Pettit , LADLE HANDLER-C Primary Care Provider Active Start: July 06, 2024 End: July 06, 2024 Jono J Ferrari , PA-C Emergency Provider Active Start: July 06, 2024 End: July 06, 2024 Team Status: Inactive Member Role Status Dates Ajit E Spasic , LADLE HANDLER-C Primary Care Provi tirso, Attending Provider Active Start: July 24, 2024 End: July 24, 2024 Team Status: Inactive Member Role Status Dates Ajit E Spasic , LADLE HANDLER-C Primary Care Provider Active Start: January 18, 2025 End: January 18, 2025 Praveen Rivero DO Attending Provider Active S tart: January 18, 2025 End: January 18, 2025 Team Status: Inactive Member Role Status Dates Ajit E Harrietsic , LADLE HANDLER-C Primary Care Provider Active Start: February 12, 2025 End: February 12, 2025 Anisa Chong DO Attending Provider Active Start: February 12, 2025 End: February 12, 2025 Team Status: Inactive Member Role Status Dates Ajit Cat Lariossic , LADLE HANDLER-C Primary Care Provi tirso, Attending Provider Active Start: February 15, 2025 End: February 15, 2025 Team Status: Inactive Member Role Status Dates Praveen Bermudez DO Attending Provider Active Start : February 16, 2025 End: February 16, 2025 Team Status: Inactive Member Role Status Dates Ajit Cat Lariossic , LADLE HANDLER-C Attending Provider Active Start: February 20, 2025 End: February 20, 2025 Team Status: Inactive Member Role Status Dates NON STAFF Attending Provider Active Start: 2024 End: February 26, 2025 Team Status: Inactive Member Role Status Dates Ajit Cat Spasic , LADLE HANDLER-C Primary Care Provi tirso, Attending Provider Active Start: March 06, 2025 End: March 06, 2025 Team Status: Inactive Member Role Status Dates Ajit E Spasic , LADLE HANDLER-C Primary Care Provi tirso, Referring Provider Active Start: March 14, 2025 End: March 14, 2025 Enrique Pratt MD Attending Provider Active Start: March 14, 2025 End: March 14, 2025 Team Status: Active Member Role Status Dates Ajit E Harrietsic , LADLE HANDLER-C Primary Care Provi tirso, Referring Provider Active Start: March 14, 2025 Jane Woo , LADLE HANDLER-C Attending Provider Active Start: March 14, 2025 Team Status: Inactive Member Role Status Dates Ajit E Spasic , LADLE HANDLER-C Primary Care Provider Active Start: February 15, 2025 End: February 15, 2025 Ajit Millanc , LADLE HANDLER-C Attending Provider Active Start: February 15, 2025 End: February 15, 2025 Team Status: Inactive Member Role Status Dates Ajit Pettit , LADLE HANDLER-C Primary Care Provider Active Start: March 06, 2025 End: March 06, 2025 Ajit Pettit , LADLE HANDLER-C Attending Provider Active Start: March 06, 2025 End: March 06, 2025 Team Status: Inactive Member Role Status Dates Ajit Pettit , LADLE HANDLER-C Primary Care Provider Active Start: March 14, 2025 End: March 14, 2025 Ajit Pettit , LADLE HANDLER-C Referring Provider Active Start: March 14, 2025 End: March 14, 2025 Enrique Pratt MD Attending Provider Active Start: March 14, 2025 End: March 14, 2025 Team Status: Inactive Member Role Status Dates Ajit Pettit , LADLE HANDLER-C Primary Care Provider Active Start: March 20, 2025 End: March 20, 2025 Cb Raines MD Attending Provider Active Star t: March 20, 2025 End: March 20, 2025 Team Status: Inactive Member Role Status Dates Ajit Pettit , LADLE HANDLER-C Primary Care Provider Active Start: April 04, 2025 End: April 04, 2025 Enrique Pratt MD Attending Provider Active Start: April 04, 2025 End: April 04, 2025 Team Status: Active Member Role Status Dates Ajit Pettit , LADLE HANDLER-C Primary Care Provider Active Start: April 04, 2025 Ajit Pettit , LADLE HANDLER-C Referring Provider Active Start: April 04, 2025 Jane Woo LADLE HANDLER-C Attending Provider Active Start: April 04, 2025 Team Status: Inactive Member Role Status Dates Ajit Pettit , LADLE HANDLER-C Primary Care Provider Active Start: April 16, 2025 End: April 16, 2025 Leodan Patricia MD Attending Provider Active Sta rt: April 16, 2025 End: April 16, 2025 Enrique Pratt MD Referring Provider Active Start: April 16, 2025 End: April 16, 2025 Team Status: Active Member Role Status Dates Ajit Pettit , LADLE HANDLER-C Primary Care Provider Active Start: April 18, 2025 Ajit Pettit , LADLE HANDLER-C Referring Provider Active Start: April 18, 2025 Jane Woo LADLE HANDLER-C Attending Provider Active Start: April 18, 2025 Team Status: Inactive Member Role Status Dates Ajit Pettit , LADLE HANDLER-C Primary Care Provider Active Start: April 18, 2025 End: April 18, 2025 Leodan Patricia MD Attending Provider Active Sta rt: April 18, 2025 End: April 18, 2025 Team Status: Inactive Member Role Status Dates Ajit Pettit , LADLE HAND[employer]ER-C Primary Care Provider Active Start: May 09, 2025 End: May 09, 2025 Christian Rodriguez DO Attending Provider Active Start: May 09, 2025 End: May 09, 2025 Team Status: Inactive Member Role Status Dates Ajit Pettit , LADLE HANDLER-C Primary Care Provider Active Start: May 09, 2025 End: May 09, 2025 Enrique Pratt MD Attending Provider Active Start: May 09, 2025 End: May 09, 2025 Team Status: Active Member Role Status Dates Ajit Pettit , LADLE HAND[employer]ER-C Primary Care Provider Active Start: May 09, 2025 Ajit Pettit , [employer]ADLE HANDLER-C Referring Provider Active Start: May 09, 2025 Jane Woo LADLE HANDLER-C Attending Provider Active Start: May 09, 2025 Team Status: Inactive Member Role Status Dates Ajit Pettit , [employer]ADLE HAND[employer]ER-C Primary Care Provider Active Start: May 17, 2025 End: May 17, 2025 Mony Lepe DO Attending Provider Active Sta rt: May 17, 2025 End: May 17, 2025 Goals (unrecognized section and content) Goals [...] BE BASED ON THE PRIMARY CLINICAL RECORDS. [facility] [employer] [facility]. provides no warranty or guarantee of the accuracy or completeness of information in this document.
[2025-05-25 20:10] VITALS: BP 167/97; PULSE 82; TEMP 36.3; O2SAT 99; BMI 25.0
[2025-05-25 22:09] VITALS: PULSE 73; O2SAT 100
--- NOTE | 2025-05-25 22:29 | ED.EAR1 ---
HPI - Ear Problem General Chief complaint: Ear Stated complaint: PAIN IN RIGHT EAR/ GOING DOWN INTO JAW Time Seen by Provider: 05/25/25 22:06 Source: patient Mode of arrival: walk-in History of Present Illness HPI Narrative: presents complaining of right ear pain for 2 weeks. Tylenol helps to relive the pain but it returns. No headache or fever. No dizziness or nausea Related Data Home Medications ?Medication ?Instructions ?Recorded ?Confirmed divalproex 250 mg tablet,delayed 250 mg PO DAILY 04/20/23 02/28/25 release divalproex 500 mg tablet,extended 500 mg PO BID 04/20/23 02/28/25 release 24 hr doxazosin 2 mg tablet 2 mg PO DAILY 04/20/23 02/28/25 ergocalciferol (vitamin D2) 1,250 1,250 mcg PO DAILY 04/20/23 02/28/25 mcg (50,000 unit) capsule ferrous sulfate 325 mg (65 mg 325 mg PO DAILY 04/20/23 02/28/25 iron) tablet (FeroSul) gabapentin 800 mg tablet 800 mg PO TID 04/20/23 02/28/25 metformin 500 mg tablet,extended 500 mg PO DAILY 04/20/23 02/28/25 release 24 hr dulaglutide 3 mg/0.5 mL 3 mg subcut .weekly 03/26/24 02/28/25 subcutaneous pen injector (Trulicity) meloxicam 15 mg tablet 15 mg PO DAILY 03/26/24 02/28/25 multivitamin-ferrous 1 tab PO Q24H 03/26/24 02/28/25 fumarate-folic acid 18 mg-400 mcg tablet (Spectravite Women) sertraline 100 mg tablet 100 mg PO Q24H 03/26/24 02/28/25 simvastatin 20 mg tablet 20 mg PO DAILY 03/26/24 02/28/25 diazepam 10 mg tablet 10 mg PO QPM 11/18/24 02/28/25 melatonin 10 mg capsule 10 mg PO QPM 11/18/24 02/28/25 promethazine 25 mg tablet 25 mg PO BID PRN nausea and 11/18/24 02/28/25 vomiting furosemide 20 mg tablet 20 mg PO DAILY 02/26/25 02/28/25 ondansetron 4 mg disintegrating 4 mg PO Q8H PRN nausea and vomiting 02/26/25 02/28/25 tablet Previous Rx's ?Medication ?Instructions ?Recorded hydrochlorothiazide 12.5 mg tablet 12.5 mg PO DAILY #3 tabs 02/16/25 dicyclomine 10 mg capsule 10 mg PO QID PRN abdominal pain 02/26/25 #20 caps ondansetron 4 mg disintegrating 4 mg PO Q6H PRN nausea and 02/26/25 tablet vomiting #20 tabs ibuprofen 800 mg tablet 800 mg PO Q8H PRN pain #20 tabs 05/05/25 Allergies Allergy/AdvReac Type Severity Reaction Status Date / Time metoclopramide (From Reglan) Allergy Intermediate shaking Verified 05/25/25 20:10 amitriptyline Allergy dizzy Verified 05/25/25 20:10 latex Allergy hives Verified 05/25/25 20:10 sulfamethoxazole (From Allergy Hives Verified 05/25/25 20:10 Bactrim) tramadol (From Ultram) Allergy seizures Verified 05/25/25 20:10 trimethoprim (From Bactrim) Allergy Hives Verified 05/25/25 20:10 Review of Systems ROS Status of ROS 10 or more systems reviewed and unremarkable except as noted in history and below [facility] Social History Smoking status: Current every day smoker Little interest or pleasure in doing things: not at all Feeling down, depressed, or hopeless: not at all Exam Constitutional Vital Signs, click to edit/add: Last Vital Signs Temp 97.4 F L 05/25/25 20:10 Pulse 73 05/25/25 22:09 Resp 20 05/25/25 22:09 BP 167/97 H 05/25/25 20:10 Pulse Ox 100 05/25/25 22:09 O2 Del Method Room Air 05/25/25 22:09 Common normals: no apparent distress, average body habitus, oriented x3, no limitations, healthy appearing, alert and well nourished [facility] Common normals: normocephalic and head/scalp atraumatic Other: right TM erythematous. normal ear canal Eye Common normals: PERRL and EOMs intact bilaterally Neck & C-Spine Common normals: full ROM Other: tender nodes right submandibular Respiratory Common normals: normal respiratory effort, no retractions, no use of accessory muscles and clear to auscultation bilaterally Cardio Common normals: regular rate, regular rhythm, S1 normal heart sound and S2 normal heart sound Extremity Common normals: normal to inspection and full ROM Neuro Common normals: oriented x3, CN's II-XII intact bilaterally and moves all extremities Psych Appearance: grossly normal Course Vital Signs Vital signs: Vital Signs Temperature 97.4 F L 05/25/25 20:10 Pulse Rate 82 05/25/25 20:10 Respiratory Rate 20 05/25/25 20:10 Blood Pressure 167/97 H 05/25/25 20:10 Pulse Oximetry 99 05/25/25 20:10 Oxygen Delivery Method Room Air 05/25/25 20:10 Temperature 97.4 F L 05/25/25 20:10 Pulse Rate 73 05/25/25 22:09 Respiratory Rate 20 05/25/25 22:09 Blood Pressure 167/97 H 05/25/25 20:10 Pulse Oximetry 100 05/25/25 22:09 Oxygen Delivery Method Room Air 05/25/25 22:09 Medical Decision Making MDM Narrative Medical decision making narrative: presents complaining of right ear pain . On exam has acute right otitis media. Given first does of Augmentin and discharged home with a prescription of Augmentin and is to follow up with her doctor for recheck Discharge Plan Discharge Chief Complaint: Ear Clinical Impression: Acute right otitis media Patient Disposition: Home, Self-Care Prescriptions / Home Meds: No Action Trulicity 3 mg/0.5 mL pen injector 3 mg SUBCUT .weekly meloxicam 15 mg tablet 15 mg PO DAILY Spectravite Women 18-400 mg-mcg tablet 1 tab PO Q24H sertraline 100 mg tablet 100 mg PO Q24H simvastatin 20 mg tablet 20 mg PO DAILY furosemide 20 mg tablet 20 mg PO DAILY ondansetron 4 mg tablet,disintegrating 4 mg PO Q8H PRN (Reason: nausea and vomiting) ondansetron 4 mg tablet,disintegrating 4 mg PO Q6H PRN (Reason: nausea and vomiting) Qty: 20 0RF dicyclomine 10 mg capsule 10 mg PO QID PRN (Reason: abdominal pain) Qty: 20 0RF divalproex 250 mg tablet,delayed release (DR/EC) 250 mg PO DAILY divalproex 500 mg tablet extended release 24 hr 500 mg PO BID doxazosin 2 mg tablet 2 mg PO DAILY ergocalciferol (vitamin D2) 1,250 mcg (50,000 unit) capsule 1,250 mcg PO DAILY ferrous sulfate [FeroSul] 325 mg (65 mg iron) tablet 325 mg PO DAILY gabapentin 800 mg tablet 800 mg PO TID metformin 500 mg tablet extended release 24 hr 500 mg PO DAILY diazepam 10 mg tablet 10 mg PO QPM melatonin 10 mg capsule 10 mg PO QPM promethazine 25 mg tablet 25 mg PO BID PRN (Reason: nausea and vomiting) hydrochlorothiazide 12.5 mg tablet 12.5 mg PO DAILY Qty: 3 0RF ibuprofen 800 mg tablet 800 mg PO Q8H PRN (Reason: pain) Qty: 20 0RF Print Language: Yakut Instructions: Ear Infection (ED) Additional Instructions: follow up with your doctor next week for recheck Referrals: [facility] [Primary Care Provider] - 1 week
[2025-05-25] MEDS: AMOXICILLIN/POT CLAV 875-125 MG TABLET 1 TAB PO (22:33)
== END 2025-05-25 22:46 | disposition home or self-care (01) ==
PROVIDERS: Emergency Provider Internal Medicine
DX: H66.91 Otitis media, unspecified, right ear (principal); F17.200 Nicotine dependence, unspecified, uncomplicated
CPT/HCPCS: 99283

== ENCOUNTER 2025-09-30 17:44 | Emergency (ER) | payer OTHER, SELFPAY ==
--- OUTSIDE RECORDS SUMMARY | 2019-05-26 06:00 | XMS_ITS | Continuity of Care Document ---
Author Organization [facility] Address [address] [place] [address] Phone Care Team Providers Care Property Insurance Agent Name Role Phone yovany MORA Rohanannieluis e Unavailable Unavailabl e Allergies, Adverse Reactions, Alerts Substance Reaction Status Criticality latex Active No Information TRAMADOL HCL Active No Information Medications Medication Instructions Dosage Effective Dates (start - stop) Status Comments Zoloft 50 mg tablet take 1 tablet by ora l route every day 50 MG - Active Vitamins and Minerals tablet - Active meloxicam 15 mg tablet take 1 tablet by oral route every day 15 MG - Active gabapentin 600 mg tablet take 1 tablet by oral route 3 times every day 600 MG - Active tizanidine 4 mg tablet take 1 tablet by oral route every 8 hours as needed not to exceed 3 doses in 24 hours - Active Depakote 250 mg tablet,delayed release take 1 tablet by oral route 3 times every day 250 MG - Active Tylenol Extra Strength 500 mg tablet take 2 tablet by oral route every 4 - 6 hours as needed not to exceed 8 tablets per 24hrs 1000 MG - Active Procedures Procedure Date Nutrit Couns For Control Of [place] Dis May Tobacco Counseling Oral Hygiene Instruction Resin Three Surfaces Anterior 9 Comp Oral Eval New/estab Patient 2018 Oral Hygiene Instruction Extract; Erupted Th/exposted Rt 019 Panoramic Film [id number] Additional Oct Limited Oral Eval Oral Hygiene Instruction Intraoral-periapical 1st Film 9 [place]ite[place]-single Film Panoramic Film Intraoral-periapical 1st Film 8 [place]-single Film Limited Oral Eval Extract; Erupted Th/exposted Rt 018 OFFICE/OUTPATIENT VISIT, EST URINALYSIS, NONAUTO W/SCOPE URINE TEST PREV VISIT, EST, AGE 18-39 Contraceptive pills for bc URINALYSIS, NONAUTO W/SCOPE THIN PREP PAP W/REFLEX TO ASCUS 008 URINE TEST SMEAR, WET MOUNT, SALINE/INK SPECIMEN HANDLING ROUTINE VENIPUNCTURE Advance Directives Directive Yes / No Effective Date File Name No Information Encounters Encounter Description Practice Location Reason(s) For Visit Diagnoses Date Provider Providers Copied on Encounter [facility], [address] [place] [address], [id number], [place] tel:[phone] Dental Clinic filling (chief complaint) Encounter for screening for dental disorders 9 Jeremie Presley. [address] [place] [address], [id number], [place]. tel:[phone] [address] [place] [address], [address] [place] [address], [id number], [place] tel:[phone] Dental Clinic Encounter for screening for dental disorders 9 Ac Hernandez. [address] [place], [place], [id number], [place]. tel:[phone] [address] [place] [address], [address] [place] [address], [id number], [place] tel:[phone] Dental Clinic extraction (chief complaint) Encounter for screening for dental disorders 9 Neela Haile. [address] [place] [address], [id number], [place]. tel:[phone] [address] [place] [address], [address] [place] [address], [id number], [place] tel:[phone] Dental Clinic Encounter for screening for dental disorders 9 rajinderfelicia Presley. [address] [place], [place], [id number], [place]. tel:[phone] 23 [facility], [address] [place] [address], [id number], [place] tel:[phone] Dental Clinic dental limited (chief complaint) Encounter for screening for dental disorder 8 Vikinoreenlisaeri Ramos. [address] [place], [address], [place]. tel:[phone] OFFICE/OUTPAT IENT VISIT, EST [facility], [address] [place] [address], [id number], [place] tel:[phone] [facility] No Information Sep-200 8 No Information PREV VISIT, EST, AGE 18-39 [facility], [address] [place] [address], [id number], [place] tel:[phone] [facility] No Information Jun- 8 No Information Family History Family Member Type Diagnosis Age At Onset Mother Problem (finding) Spine problems Mother Problem (finding) Alive and well Mother Problem (finding) Fibromyalgia Payers Payer name Insurance type Covered alliance party ID Sindy fofana(s) D Medicaid [employer] [id number] Social History Type Description Quantity Date Captured Comments Alcohol Use Details Unknown Caffeine Use Details Unknown Tobacco Use Status Moderate cigarette s moker (10-19 cigs/day) Smoking Status Heavy tobacco smoker Smoking Tobacco Use Details Cigarette: Age Started: 8 Cigarette: 10 Cigarettes per day [id number] SexFemaleSexual OrientationStraight or heterosexualGender [id number] Vital Signs Date / Time: Height Weight BMI Pulse Rate Blood Pressure Temperature Respiratory Rate Body Surface Area Head Circumference Head Circ. Percentile Wt./[place]. Percentile BMI percentile Pulse Ox Inhaled Ox 11:08 AM 67 /min 141/94 mm[Hg] Chief Complaint And Reason For Visit From encounter dated '05/26/2019 11:00'. filling (chief complaint). Description: filling continue with treatment Reason For Referral Reason For Referral No Information History Of Present Illness Encounter Date Complaint History Of Prese nt Illness filling filling continue with treatment extraction continue with tr eatment dental limited dental limited , upper left Functional Status Date Functional Assessmen t No Information Instructions Date Instruction Additional Infor mation No Information Assessments Type Assessment Date assessment Encounter for screening for dent al disorders Patient Care Teams Name Effective Dates (start - stop) Status Members No Information
--- OUTSIDE RECORDS SUMMARY | 2025-06-11 09:00 | XMS_ITS ---
Author Organization [facility] Address [address] [place] [address] Care Team Providers Care Molecular Biology Director Name Role Phone Niki Gentile Primary Care Provider [phone] Yokasta Perera [phone] REASON FOR VISIT DELIVERY Social History Sex Assigned At : Social History Observation Description Sex Assigned At Female Encounters Encounter Location Date Provider Diagnosis [facility] [address] [place] [address] 06/11/2025 Yokasta Perera Plan Of Treatment Next Appt Details Provider Name:Niki Gentile, 12/25/2025 09:30:00 AM, [address] [facility], [place], [address], Progress Notes * RACHEL MCGARRY LDOB:1980 (45 yo F)Acc No.[id number]:06/11/2025 Dental Appointment Patient: RACHEL HIGGINBOTHAM Account Number:[id number]:?Yokasta PereraDOB:1980???Age:45 Y???Sex:Female Date:06/11/2025Phone:[phone]:[address] [facility] [place] Pcp:Niki Gentile Subjective: * Chief Complaints: * D ELIVERY * Electronic signature of Yokasta Perera DMD on 09/30/2025 at 07:21 PM ESTSign off status: Pending * Provider: Luke Perera Date: 0 06/11/2025 Generated for Printing/Faxing/eTransmitting on:?09/30/2025 07:21 PM EST
--- OUTSIDE RECORDS SUMMARY | 2025-08-22 05:30 | XMS_ITS ---
Author Organization [facility] Address [address] [place] [address] Care Team Providers Care Packer Operator Automatic Name Role Phone Niki Gentile Primary Care Provider Yokasta Perera [phone] REASON FOR VISIT ADJUSTMENT Social History Sex Assigned At : Social History Observation Description Sex Assigned At Female Encounters Encounter Location Date Provider Diagnosis [facility] [address] [place] [address] 08/22/2025 Yokasta Perera Plan Of Treatment Next Appt Details Provider Name:Niki Gentile, 12/25/2025 09:30:00 AM, [address] [facility], [place], [address], Progress Notes * RACHEL MCGARRY LDOB:1980 (45 yo F)Acc No.[id number]:08/22/2025 Dental Visit Patient: James RACHEL FINCH Account Number:[id number]:?Yokasta PereraDOB:1980???Age:45 Y???Sex:Female Date:08/22/2025Phone:[phone]:[address] [facility] [place], [id number] Pcp:Niki Gentile Subjective: * Chief Complaints: * A DJUSTMENT * Electronic signature of Yokasta Perera DMD on 09/30/2025 at 07:21 PM ESTSign off status: Pending * Provider: Luke Perera Date: 10/22/2024 Generated for Printing/Faxing/eTransmitting on:?09/30/2025 07:21 PM EST
--- OUTSIDE RECORDS SUMMARY | 2025-09-25 04:45 | XMS_ITS ---
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 Name Role Phone Niki Gentile Primary Care Provider Yokasta Perera [phone] Allergies Allergen (clinical drug ingredient) Drug/Non Drug Allergy documented on EMR Reaction Allergy Type Onset Date Status Latex latex (uncoded) hives Allergy Activesulfamethoxazole / trimethoprimBactrim DSdizzinessDrug AllergyActive tramadolUltramcauses seizuresDrug AllergyActive Results Component Value Reference Range Notes Hemoglobin A1c Reviewed date:09/25/2025 12:29:52 PM Interpretation: Performing Lab: Notes/Report: Hemoglobin A1c 5.3 5 - 7.9 % REASON FOR VISIT 2month f/u Medications Medication SIG (Take, Route, Frequency, Duration) Notes Start Date End Date Status Vitamin D (Ergocalciferol) 1 .25 MG (46858 UT) Capsule TAKE 1 CAPSULE BY MOUTH ONCE A WEEK; Duration: 28 ActiveAcetaminophen 500 MG Tablet1 tablet Orally every 6 hrs; Duration: 30 days ActiveoxyCODONE-Acetaminophen 5-325 MG Tablet 1 tablet Orally every 6 hrs; Duration: 5 days As needed 5ActiveSimvastatin 20 MG Tablet1 tablet in the evening Orally Once a day; Duration: 30 daysActivediazePAM 10 MG TabletTAKE 1 TABLET BY MOUTH AT BEDTIME ONCE EVERY DAY; Duration: 5ActiveKetorolac Tromethamine 10 MG TabletTAKE 1 TABLET BY MOUTH EVERY 6 HOURS WITH FOOD OR MILK FOR 5 DAYS; Duration: 5 daysActiveoxyBUTYnin Chloride 5 MG TabletTAKE 1 TABLET BY MOUTH TWICE A DAY FOR 30 DAYS; Duration: 30ActiveSertraline HCl 50 MG TabletTAKE 1 TABLET BY MOUTH EVERY DAY; Duration: 59550 totalActiveCVS Spectravite Women - TabletTAKE 1 TABLET BY MOUTH EVERY DAY; Duration: 90ActiveMeloxicam 15 MG Tablet TAKE 1 TABLET BY MOUTH EVERY DAY; Duration: 30ActivePromethazine HCl 25 MG TabletTAKE 1 TABLET BY MOUTH EVERY 12 HOURS FOR 30 DAYS; Duration: 30Active OneTouch Ultra - StripCHECK BLOOD SUGAR TWICE DAILY AND WHEN NEEDED; Duration: 11GctdqbSbxiasnw-Nywlsjfae-AS 3.5-08709-4 Suspension4 drops into affected ear Otic Three times a day; Duration: 5 days5ActiveMulti Complete Capsule Orally dailyActiveMeclizine HCl 25 MG TabletTAKE 1/2 TO 1 TABLET BY MOUTH EVERY 6 TO 8 HOURS FOR 10 DAYS; Duration: 10ActiveLORazepam 0.5 MG Tablet 1 tablet Orally Once a day; Duration: 30 days As needed 5ActiveDivalproex Sodium ER 500 MG Tablet Extended Release 24 Hour TAKE ONE TABLET BY MOUTH TWICE A DAY Orally twice a day; Duration: 30 days take 750 mg twice a day 6ActiveCVS Melatonin 10 MG CapsuleTAKE 1 CAPSULE BY MOUTH EVERYDAY AT BEDTIME; Duration: 90ActiveTrulicity 3 MG/0.5ML Solution Auto-injectorINJECT 3 MG SUBCUTANEOUSLY ONE TIME PER WEEK; Duration: 28ActiveDivalproex Sodium 250 MG Tablet Delayed Release1 tablet in the morning with 500mg tablet, then one tablet AT 2:00PM, then 1 tablet with 500mg at bedtime Orally 3 times a day; Duration: 30 daysActiveSertraline HCl 100 MG TabletTAKE 1 TABLET BY MOUTH EVERY DAY; Duration: 30ActivetiZANidine HCl 4 MG TabletTAKE 2 TABLETS BY MOUTH EVERY 8 HOURS.; Duration: 30ActivemetFORMIN HCl 500 MG TabletTAKE 1 TABLET BY MOUTH TWICE A DAY; Duration: 30ActiveDoxazosin Mesylate 2 MG Tablet1 tablet Orally twice a day; Duration: 30 daysActiveGabapentin 800 MG TabletTAKE 1 TABLET BY MOUTH TWICE A DAY; Duration: 30ActiveFerrous Sulfate 325 (65 Fe) MG TabletTAKE 1 TABLET BY MOUTH DAILY; Duration: 30Active Social History Tobacco Use: Social History Observation Description Date Details (start date - stop date) Current Smoker NA - NA Sex Assigned At : Social History Observation Description Sex Assigned At Female Social History Drug/Alcohol:Social InfoQuestionAnswerNotesAUDIT-C (Standard)Did you have a drink containing alcohol in the past year?FfTiylbx7EwqqihjbvvuppcRftqudghBunvdot Use:Social InfoQuestionAnswerNotesTobacco Control (Standard)Tobacco use:Current smoker? How often do you smoke cigarettes?Every day? How many cigarettes a day do you smoke?08-23 Vital Signs Temperature 97.4 degrees Fahrenheit 09/25/20 25 Blood pressure systolic 143 mm Hg 09/25/20 25 Blood pressure diastolic 85 mm Hg 025 Heart Rate 79 /min 09/25/2025 Respiratory Rate 18 /min 09/25/2025 Height 65 in 09/25/2025 Weight 147 lbs 09/25/2025 BMI 24.46 kg/m2 09/25/2025 Oximetry 98 % 09/25/2025 Encounters Encounter Location Date Provider Diagnosis [address] [address] 09/25/2025 Niki Gentile Type 2 diabetes scooter itus without complication, without long-term current use of insulin E11.9 ; Nicotine dependence, unspecified, uncomplicated F17.200 ; Nonintractable epilepsy without status epilepticus, unspecified epilepsy type G40.909 ; Lumbar disc disorder with myelopathy M51.06 and Chronic back pain M54.9 Assessments Encounter Date Diagnosis (ICD Code) Assessment Notes Treatment Notes Treatment Clinical Notes Section Notes 09/25/2025 Type 2 diabetes scooter itus without complication, without long-term current use of insulin (ICD-10 - E11.9) Diabetes management ongoing. Patient is due for A1C test. Recent blood work performed at [facility].Patient takes Metformin and Trulicity. - Order Hemoglobin A1C for diabetes management. 09/25/2025Nicotine dependence, unspecified, uncomplicated (ICD-10 - F17.200) smoking cessation discussed. Pt verbalized understanding to complication of tobacco use including cardiac and pulmonary disease, as well as stroke. Pt declines interest in this time.09/25/2025Nonintractable epilepsy without status epilepticus, unspecified epilepsy type (ICD-10 - G40.909)Neurologist changed Depakote dosing. Patient takes Depakote 250 mg three times a day and 500 mg twic e a day. pt to f/u with neurology as fwdouvar83/23/2025Lumbar disc disorder with myelopathy (ICD-10 - M51.06)patient with increasing weakness. Despite completing PT, continuing home exercises, and injections with temporary relief, she takes antiinflammatories, muscle relaxers as well as pain medication. Sheuses pain cream, compounding from [facility] pharmacy and needs a refill. With worsening symptoms, pt will need an updated MRI, will get this ordered. Any loss of bowel or bladder, pt needs to go to theER09/25/2025hronic back pain (ICD-10 - M54.9) Worsening pain in back and legs with increasing weakness. Prior injections did not help and worsened leg symptoms. Surgeon determined patient was not a surgical candidate. MRI needed to clarify causeand guide further management. Physical therapy performed at home. - Order MRI of the lumbar spine for evaluation of worsening back pain and leg weakness. Plan Of Treatment Medication Medication Name Sig Start Date Stop Date Notes Vitamin D (Ergocalciferol) 1 .25 MG (63059 UT) Capsule TAKE 1 CAPSULE BY MOUTH ONCE A WEEK; Duration: 28 Acetaminophen 500 MG Tablet1 tablet Orally every 6 hrs; Duration: 30 days oxyCODONE-Acetaminophen 5-325 MG Tablet1 tablet Orally every 6 hrs; Duration: 5 daysSimvastatin 20 MG Tablet1 tablet in the evening Orally Once a day; Duration: 30 daysdiazePAM 10 MG TabletTAKE 1 TABLET BY MOUTH AT BEDTIME ONCE EVERY DAY; Duration: Ketorolac Tromethamine 10 MG TabletTAKE 1 TABLET BY MOUTH EVERY 6 HOURS WITH FOOD OR MILK FOR 5 DAYS; Duration: 5 daysDivalproex Sodium ER 500 MG Tablet Extended Release 24 HourTAKE ONE TABLET BY MOUTH TWICE A DAY Orally twice a day; Duration: 30 12/24/2025 CVS Melatonin 10 MG CapsuleTAKE 1 CAPSULE BY MOUTH EVERYDAY AT BEDTIME; Duration: 90Trulicity 3 MG/0.5ML Solution Auto-injectorINJECT 3 MG SUBCUTANEOUSLY ONE TIME PER WEEK; Duration: 28Divalproex Sodium 250 MG Tablet Delayed Release1 tablet in the morning with 500mg tablet, then one tablet AT 2:00PM, then 1 tablet with 500mg at bedtime Orally 3 times a day; Duration: 30 daysSertraline HCl 100 MG TabletTAKE 1 TABLET BY MOUTH EVERY DAY; Duration: 30 tiZANidine HCl 4 MG TabletTAKE 2 TABLETS BY MOUTH EVERY 8 HOURS.; Duration: 30 metFORMIN HCl 500 MG TabletTAKE 1 TABLET BY MOUTH TWICE A DAY; Duration: 30 Doxazosin Mesylate 2 MG Tablet1 tablet Orally twice a day; Duration: 30 days Gabapentin 800 MG TabletTAKE 1 TABLET BY MOUTH TWICE A DAY; Duration: 30Ferrous Sulfate 325 (65 Fe) MG TabletTAKE 1 TABLET BY MOUTH DAILY; Duration: 30Treatment Notes Assessment Notes Type 2 diabetes mellitus wit hout complication, without long-term current use of insulin Diabetes management ongoing. Patient is due for A1C test. Recent blood work performed at [facility]. Patient takes Metformin and Trulicity. - Order Hemoglobin A1C for diabetes management. Nicotine dependence, unspeci fied, uncomplicated smoking cessation discussed. Pt verbaliz ed understanding to complication of tobacco use including cardiac and pulmonary disease, as well as stroke. Pt declines interest in this time. Nonintractable epilepsy with out status epilepticus, unspecified epilepsy type Neurologist changed Depakote dosing. Patient takes Depakote 250 mg three times a day and 500 mg twice a day. pt to f/u with neurology as directed Lumbar disc disorder with myelopathy pat ient with increasing weakness. Despite completing PT, continuing home exercises, and injections with temporary relief, she takes antiinflammatories, muscle relaxers as well as pain medication. She uses pain cream, compounding from [facility] and needs a refill. With worsening symptoms, pt will need an updated MRI, will get this ordered. Any loss of bowel or bladder, pt needs to go to the ER Chronic back pain Worsening pain in back and legs with increasing weakness. Prior injections did not help and worsened leg symptoms. Surgeon determined patient was not a surgical candidate. MRI needed to clarify cause and guide further management. Physical therapy performed at home. - Order MRI of the lumbar spine for evaluation of worsening back pain and leg weakness. Pending Test Test Name Order Date MR lumbar spine wo con 09/25/2025 Next Appt Details Follow Up: 4 Weeks, Reason: Provider Name:Niki Gentile, 12/25/2025 09:30:00 AM, [address] [facility] [place], [address], Medications Administered Medication Instructions Date of Administration Dosage Notes Ketorolac Tromethamine mgKetorolac Ssoslueipaig96/23/202530 mg History and Physical Notes * HPI (History of Present Illness) CategorySub-CategoryDetailNotesCategory NotesDepression ScreeningPHQ-2 (2015 Edition)Little interest or pleasure in doing things?: Not at allFeeling down, depressed, or hopeless?: Not at allTotal Score: 0Constitutional Patient comes in for 2 month f/u pt stating that she went to see Dr Miramontes, but needs a MRI and he can not seem to get it approved and is asking if it can be ordered by PCP, stating back and legs hurt so bad she has a hard time walking. patient stating that she had 3 seizures back to back, was seen by neuro. Rachel has hx of fibromyalgia, lumbar disc disease with myelopathy and lumbar radiculopathy. She has been treated with conservative measures including PT, full six weeks, she continues with daily home exercise program/stretching, she has been evaluated by a surgeon and she is not surgical at this time, and has been seeing and has undergone both epidural and facet injections with temporary relief. She reports that her pain is worsening, she feels weaker and her legs have given out of her. She is relying on a cane.She denies any loss of bowel and bladder. Examination CategorySub-CategoryDetailNotesCategory NotesGeneral ExaminationCARDIOVASCULAR: RRRRESPIRATORY:unlabored, clear throughoutGASTROINTESTINAL:soft pos bs EXTREMITIES:bilaterally no clubbing, cyanosis, or edemaGENERAL APPEARANCE:alert and oriented, no distressSKIN:moist, warm, unremarkable, no rashNEUROLOGIC EXAM: appropriate for ageORAL CAVITY:no teethPERIPHERAL PULSES:radial pulses +2/4 bilaterally, posterior tibial pulses +2/4 bilaterallyCHEST:normal shape and expansionMUSCULOSKELETAL:tender cervical thoracic and lumbar with palpation, many areas of point tenderness. NO obvious deformities, SLR raise posPSYCHgood eye contact, oriented to person, oriented to place, oriented to time, appropriate mood and affectFACE:symmetrical, well appearing Progress Notes * ZEFERINO, RACHEL LDOB:1980 (45 yo F)Acc No.[id number]:09/25/2025 Progress Notes Patient: RACHEL HIGGINBOTHAM Account Number:[id number] Provider:?Niki Gentile, NPDOB:1980???Age:45 Y???Sex:FemaleDate:09/25/2025Phone:[phone]:[address] [facility] Subjective: * Chief Complaints: * 2 month f/u * HPI: ???Depression Screening:?PHQ-2 (2015 Edition)?Little interest or pleasure in doing things? Not at all ?Feeling down, depressed, or hopeless??Not at all ?Total Score?0 ???Constitutional:? Patient comes in for 2 month f/u pt stating that she went to see Dr Miramontes, but needs a MRI and he can not seem to get it approved and is asking if it can be ordered by PCP, stating back and legs hurt so bad she has a hard time walking. patient stating that she had 3 seizures back to back, was seen by neuro.? Rachel has hx of fibromyalgia, lumbar disc disease with myelopathy and lumbar radiculopathy. She has been treated with conservative measures including PT, full six weeks, she continues with daily home exercise program/stretching, she has been evaluated by a surgeon and she is not surgical at this time, and has been seeing Dr. Miramontes and has undergone both epidural and facet injections with temporary relief.? She reports that her pain is worsening, she feels weaker and her legs have given out of her.? She is relying on a cane.? She denies any loss of bowel and bladder. * ROS: ???General Review of Systems:?General?Denies fever, chills, weight loss.?Eyes?Denies vision changes, no double vision or blurry vision. .?HEENT?Denies sore throat, ear pain., Denies fevers , chills, Denies nasal congestion, or pressure, Denies hoarseness, change in voice, difficulty swallowing.?Cardiovascular?Denies chest pain, palpitations, exertional dyspnea.?Respiratory?Denies cough, dyspnea, wheezing, sputum production, hemoptysis.?Gastrointestinal?Denies abdominal pain, nausea, vomiting, diarrhea, or constipation. Denies blood in stool or changes in bowel habits..?Genitourinary?Denies urgency, frequency, dysuria, hem aturia.?Musculoskeletal?low back pain, leg pain.?Dermatology?Denies rashes or le sions.?Neurological?numbess and tingling.?Psychiatric?Denies anxiety, depression , Denies suicidal ideation, Patient states feels safe at home, Mood stable per pt..?Endocrinologic?Denies polyuria, polydipsia, polyphagia.?Hem/Lymph ?Denies easy bruising, bleeding, swollen lymph nodes.?Allerg/Immun?Denies allergies or hay fever.? * Medical History: Seizures Hx/o cervical cancer Fibromyalgia IBS LEVEL 3 Medical History Verified * OB History: ???Miscarriage(s)?4.? # 1:?normal spontaneous vaginal delivery ().? # 2:?normal spontaneous vaginal delivery ().? # 3?normal spontaneous vaginal delivery ().?Total living children?3.?Total pregnancies?7.? * Surgical History: gall bladder removed 1998? appendectomy 2001? right knee ligament repair as child 03/1990? tooth pulled 2019? hysterectomy, total with bilateral salpingo-oopherectomy (BSO) 09/28/2023? Surgical History verified.? * Hospitalization/Major Diagno stic Procedure: HIGH BS 02/2023? IBS; C DIFF 10/2023? [facility] - Ear infection HTN 05/2025? Hospitalization Verified.? * Family History: F ather: , family history unknown . M other: alive, diagnosed with Cancer, Hypertension. 1 brother(s) , 1 sister(s) - healthy. 2 son(s) , 1 daughter(s) - healthy. . F amily History Verified.. * Social History: ???Drug/Alcohol:?AUDIT-C (Standard)?Did you have a drink containing alcohol in the past year??No ?Points?0 ?Interpretation?Negative ???Tobacco Use:?Tobacco Control (Standard)?Tobacco use:?Current smoker ?How often do you smoke cigarettes??Every day ?How many cigarettes a day do you smoke??11-20 ???Social History Verified. * Medications: T akingLORazepam 0.5 MG Tablet 1 tablet Orally Once a day As neededMeclizine HCl 25 MG Tablet TAKE 1/2 TO 1 TABLET BY MOUTH EVERY 6 TO 8 HOURS FOR 10 DAYS OneTouch Ultra - Strip CHECK BLOOD SUGAR TWICE DAILY AND WHEN NEEDED Promethazine HCl 25 MG Tablet TAKE 1 TABLET BY MOUTH EVERY 12 HOURS FOR 30 DAYS Multi Complete Capsule Orally daily Jzgjejkm-Xzhebyakk-KM 3.5-29091-3 Suspension 4 drops into affected ear Otic Three times a day Acetaminophen 500 MG Tablet TAKE 1 TABLET BY MOUTH EVERY 6 HOURS NEEDED Vitamin D (Ergocalciferol) 1.25 MG (20624 UT) Capsule TAKE 1 CAPSULE BY MOUTH ONCE A WEEK diazePAM 10 MG Tablet TAKE 1 TABLET BY MOUTH AT BEDTIME ONCE EVERY DAY Simvastatin 20 MG Tablet TAKE 1 TABLET BY MOUTH EVERY DAY IN THE EVENING CVS Spectravite Women - Tablet TAKE 1 TABLET BY MOUTH EVERY DAY Ferrous Sulfate 325 (65 Fe) MG Tablet TAKE 1 TABLET BY MOUTH DAILY Gabapentin 800 MG Tablet TAKE 1 TABLET BY MOUTH TWICE A DAY metFORMIN HCl 500 MG Tablet TAKE 1 TABLET BY MOUTH TWICE A DAY oxyBUTYnin Chloride 5 MG Tablet TAKE 1 TABLET BY MOUTH TWICE A DAY FOR 30 DAYS Sertraline HCl 100 MG Tablet TAKE 1 TABLET BY MOUTH EVERY DAY CVS Melatonin 10 MG Capsule TAKE 1 CAPSULE BY MOUTH EVERYDAY AT BEDTIME Doxazosin Mesylate 2 MG Tablet TAKE 1 TABLET BY MOUTH EVERY DAY tiZANidine HCl 4 MG Tablet TAKE 2 TABLETS BY MOUTH EVERY 8 HOURS. Meloxicam 15 MG Tablet TAKE 1 TABLET BY MOUTH EVERY DAY Trulicity 3 MG/0.5ML Solution Auto-injector INJECT 3 MG SUBCUTANEOUSLY ONE TIME PER WEEK Divalproex Sodium ER 500 MG Tablet Extended Release 24 Hour TAKE ONE TABLET BY MOUTH TWICE A DAY Orally twice a day take 750 mg twice a day, stop date 12/05/2025Divalproex Sodium 250 MG Tablet Delayed Release 1 tablet in the morning with 500mg tablet, then one tablet AT 2:00PM, then 1 tablet with 500mg at bedtime Orally 3 times a day Sertraline HCl 50 MG Tablet TAKE 1 TABLET BY MOUTH EVERY DAY , Notes to Pharmacist: 150 totalKetorolac Tromethamine 10 MG Tablet TAKE 1 TABLET BY MOUTH EVERY 6 HOURS WITH FOOD OR MILK FOR 5 DAYS Medication List reviewed and reconciled with the patientTaking LORazepam 0.5 MG Tablet 1 tablet Orally Once a day As neededTaking Meclizine HCl 25 MG Tablet TAKE 1/2 TO 1 TABLET BY MOUTH EVERY 6 TO 8 HOURS FOR 10 DAYS Taking OneTouch Ultra - Strip CHECK BLOOD SUGAR TWICE DAILY AND WHEN NEEDED Taking Promethazine HCl 25 MG Tablet TAKE 1 TABLET BY MOUTH EVERY 12 HOURS FOR 30 DAYS Taking Multi Complete Capsule Orally daily Taking Obilcpgw-Vacmarohz-KN 3.5-80895-5 Suspension 4 drops into affected ear Otic Three times a day Taking Acetaminophen 500 MG Tablet TAKE 1 TABLET BY MOUTH EVERY 6 HOURS NEEDED Taking Vitamin D (Ergocalciferol) 1.25 MG (04027 UT) Capsule TAKE 1 CAPSULE BY MOUTH ONCE A WEEK Taking diazePAM 10 MG Tablet TAKE 1 TABLET BY MOUTH AT BEDTIME ONCE EVERY DAY Taking Simvastatin 20 MG Tablet TAKE 1 TABLET BY MOUTH EVERY DAY IN THE EVENING Taking CVS Spectravite Women - Tablet TAKE 1 TABLET BY MOUTH EVERY DAY Taking Ferrous Sulfate 325 (65 Fe) MG Tablet TAKE 1 TABLET BY MOUTH DAILY Taking Gabapentin 800 MG Tablet TAKE 1 TABLET BY MOUTH TWICE A DAY Taking metFORMIN HCl 500 MG Tablet TAKE 1 TABLET BY MOUTH TWICE A DAY Taking oxyBUTYnin Chloride 5 MG Tablet TAKE 1 TABLET BY MOUTH TWICE A DAY FOR 30 DAYS Taking Sertraline HCl 100 MG Tablet TAKE 1 TABLET BY MOUTH EVERY DAY Taking CVS Melatonin 10 MG Capsule TAKE 1 CAPSULE BY MOUTH EVERYDAY AT BEDTIME Taking Doxazosin Mesylate 2 MG Tablet TAKE 1 TABLET BY MOUTH EVERY DAY Taking tiZANidine HCl 4 MG Tablet TAKE 2 TABLETS BY MOUTH EVERY 8 HOURS. Taking Meloxicam 15 MG Tablet TAKE 1 TABLET BY MOUTH EVERY DAY Taking Trulicity 3 MG/0.5ML Solution Auto-injector INJECT 3 MG SUBCUTANEOUSLY ONE TIME PER WEEK Taking Divalproex Sodium ER 500 MG Tablet Extended Release 24 Hour TAKE ONE TABLET BY MOUTH TWICE A DAY Orally twice a day take 750 mg twice a day, stop date 12/05/2025Taking Divalproex Sodium 250 MG Tablet Delayed Release 1 tablet in the morning with 500mg tablet, then one tablet AT 2:00PM, then 1 tablet with 500mg at bedtime Orally 3 times a day Taking Sertraline HCl 50 MG Tablet TAKE 1 TABLET BY MOUTH EVERY DAY , Notes to Pharmacist: 150 totalTaking Ketorolac Tromethamine 10 MG Tablet TAKE 1 TABLET BY MOUTH EVERY 6 HOURS WITH FOOD OR MILK FOR 5 DAYS Medication List reviewed and reconciled with the patient * Allergies: U ltram: causes seizures - Contraindicationlatex: hives - ContraindicationBactrim DS: dizziness - Allergy - Criticality HighyesAllergies Verified. Objective: * Vitals: H t: 65 in, Wt: 147 lbs, BMI:24.46Index, Temp: 97.4 F, BP: 143/85 mm Hg, SaO2:98%, HR: 79 /min, RR: 18 /min. * P ast Orders: L ab:Basic Metabolic Panel (Order Date - 08/22/2025) (Collection Date & Time - 08/22/2025 07:03 PM) Value Reference Range Glucose 95 70-100 - mg/dL?Blood Urea Kfyspwff482-96 - mg/dL?Swcsgq261M568-965 - mmol/L?Potassium3.93.5-5.1 - mmol/L?Dqgjfjah90V30-092 - mmol/L ?Carbon Szzjnkp61.421.0-31.0 - mmol/L?Calcium8.98.6-10.3 - mg/dL ???Lab:B-Type Natriuretic Peptide (Order Date - 08/22/2025) (Collection Date & Time - 08/22/2025 07:03 PM)?ValueReference Range?B-Type Natriuretic Pdqicpa19.05-100 - pg/mL ???Lab:Creatine Kinase (Order Date - 08/22/2025) (Collection Date & Time - 08/22/2025 07:03 PM)?ValueReference Range?Creatine Ognrgs5017-326 - U/L ???Lab:Prothrombin Time INR (Order Date - 08/22/2025) (Collection Date & Time - 08/22/2025 07:03 PM)?ValueReference Range?Prothrombin Time10.49.0- 12.9 - s?INR0.9- ???Lab:Complete Blood Count Auto Diff (Order Date - 08/22/2025) (Collection Date & Time - 08/22/2025 07:03 PM)?ValueReference Range?White Blood Count11.03.8-11.6 - [CFU]/mL?Uncorrected WBC11.03.8-11.6 - 10*3/uL ?Red Blood Count4.603.60-5.00 - 10*6/uL?Gsxnkobrgz11.011.8-15.4 - g/dL?Axcxyyjbzm90.234.0-46.4 - %?Mean Corpuscular Fbradv56.480-100 - fL?Mean Corpuscular Rrcnalnxkk14.424.7-34.3 - pg?Mean Corpuscular HGB Conc34.832.0-35.0 - g/dL?Red Cell Distribution Width12.7 11.9-15.3 - %?Platelet Uaktr516987-145 - 10*3/uL?Mean Platelet Volume7.66.3-10.7 - fL?Neutrophils % (Auto)49.7. - %?Lymphocytes % (Auto)41.3. - %?Monocytes % (Auto)7.7. - %?Eosinophils % (Auto) 0.6. - %?Basophils % (Auto)0.7. - %?NRBC%0.10-0.5 - /100{WBC} ?Neutrophils # (Auto)5.51.8-7.7 - 10*3/uL?Lymphocytes # (Auto)4.5 1.00-4.8 - 10*3/uL?Monocytes # (Auto)0.80.0-0.8 - 10*3/uL ?Eosinophils # (Auto)0.10.0-0.45 - 10*3/uL?Basophils # (Auto)0.1 0.0-0.2 - 10*3/uL * Lab:Troponin I High Sensitiv ity * Collection Date 08/22/2025 08/22/2025 Collection Time 08:42 PM 07:03 PM Order Date 08/22/2025 08/22/2025 * Examination: ???General Examination: ?GENERAL APPEARANCE:?alert and oriented, no distress.?FACE:?symmetrical, well appearing.?ORAL CAVITY:?no teeth.?CARDIOVASCULAR:?RRR.?PERIPHERAL PULSES:?radial pulses +2/4 bilaterally, posterior tibial pulses +2/4 bilaterally.?CHEST:?normal shape and expansion.?RESPIRATORY:?unlabored, clear throughout.?GASTROINTESTINAL:?soft pos bs.?NEUROLOGIC EXAM:?appropriate for age.?SKIN:?moist, warm, unremarkable, no rash.?EXTREMITIES:?bilaterally no clubbing, cyanosis, or edema. ?MUSCULOSKELETAL:?tender cervical thoracic and lumbar with palpation, many areas of point tenderness. NO obvious deformities, SLR raise pos.?PSYCH?good eye contact, oriented to person, oriented to place, oriented to time, appropriate mood and affect.? Assessment: * Assessment: 1.?Type 2 diabetes mellitus without complication, without long-term current use of insulin - E11.9 (Primary)???2.?Nicotine dependence, unspecified, uncomplicated - F17.200 ??3.?Nonintractable epilepsy without status epilepticus, unspecified epilepsy type- G40.909???4.?Lumbar disc disorder with myelopathy - M51.06???5.?Chronic back pain - M54.9??? Plan: * Treatment: ?LAB: Hemoglobin A1c (Collection Date & Time - 09/25/2025) Notes: Diabetes management ongoing. Patient is due for A1C test. Recent blood work performed at [facility]. Patient takes Metformin and Trulicity. - Order Hemoglobin A1C for diabetes management.??2.?Nicotine dependence, unspecified, uncomplicated? Refill Vitamin D (Ergocalciferol) Capsule, 1.25 MG (03193 UT), TAKE 1 CAPSULE BY MOUTH ONCE A WEEK,28, 4 Capsule, Refills 1;?Refill Simvastatin Tablet, 20 MG, 1 tablet in the evening, Orally, Once a day, 30 days, 30 Tablet, Refills 3;?Refill Gabapentin Tablet, 800 MG, TAKE 1 TABLET BY MOUTH TWICE A DAY, 30, 60 Tablet, Refills 0;?Refill metFORMIN HCl Tablet, 500 MG, TAKE 1 TABLET BY MOUTH TWICE A DAY, 30, 60 Tablet, Refills 0;?Refill Divalproex Sodium ER Tablet Extended Release 24 Hour, 500 MG, TAKE ONE TABLET BY MOUTH TWICE A DAY, Orally, twice a day take 750 mg twice a day, 30 days, 60, Refills 2.?? Notes: smoking cessation discussed. Pt verbalized understanding to complication of tobacco use including cardiac and pulmonary disease, as well as stroke. Pt declines interest in this time.? 3.?Nonintractable epilepsy without status epilepticus, unspecified epilepsy type? Refill diazePAM Tablet, 10 MG, TAKE 1 TABLET BY MOUTH AT BEDTIME ONCE EVERY DAY, 30, 30 Tablet, Refills 0.?? Notes: Neurologist changed Depakote dosing. Patient takes Depakote 250 mg three times a day and 500mg twice a day. pt to f/u with neurology as? directed?? 4.?Lumbar disc disorder with myelopathy? Refill Ketorolac Tromethamine Tablet, 10 MG, TAKE 1 TABLET BY MOUTH EVERY 6 HOURS WITH FOOD OR MILKFOR 5 DAYS, 5 days, 20 Tablet, Refills 1;?Refill oxyCODONE-Acetaminophen Tablet, 5-325 MG, 1 tablet, Orally, every 6 hrs As needed, 5 days, 15 Tablet, Refills 0.?Imaging: MR lumbar spine wo con Notes: patient with increasing weakness.? Despite completing PT, continuing home exercises, and injections with temporary relief, she takes antiinflammatories, muscle relaxers as well as pain medication.? She uses pain cream, compounding from [facility] pharmacy and needs a refill.? With worsening symptoms, pt will need an updated MRI, will get this ordered.? Any loss of bowel orbladder, pt needs to go to the ER??5.?Chronic back pain?Imaging: MR lumbar spine wo con Notes: Worsening pain in back and legs with increasing weakness. Prior injections did not help and worsened leg symptoms. Surgeon determined patient was not a surgical candidate. MRI needed to clarify cause and guide further management. Physical therapy performed at home. - Order MRI of the lumbar spine for evaluation of worsening back pain and leg weakness.??6.?Others? Refill Acetaminophen Tablet, 500 MG, 1 tablet, Orally, every 6 hrs, 30 days, 120 Tablet, Refills 0; Refill Ferrous Sulfate Tablet, 325 (65 Fe) MG, TAKE 1 TABLET BY MOUTH DAILY, 30, 30 Tablet, Refills 0;?Refill Sertraline HCl Tablet, 100 MG, TAKE 1 TABLET BY MOUTH EVERY DAY, 30, 30 Tablet,Refills 0;?Refill [facility] Melatonin Capsule, 10 MG, TAKE 1 CAPSULE BY MOUTH EVERYDAY AT BEDTIME, 90, 90 Capsule, Refills 1;?Refill Divalproex Sodium Tablet Delayed Release, 250 MG, 1 tablet in the morning with 500mg tablet, then one tablet AT 2:00PM, then 1 tablet with 500mg at bedtime, Orally, 3 times a day, 30 days, 90, Refills 2;?Refill Trulicity Solution Auto-injector, 3 MG/0.5ML, INJECT 3 MG SUBCUTANEOUSLY ONE TIME PER WEEK, 28, 2, Refills 1;?Refill Doxazosin Mesylate Tablet, 2 MG, 1 tablet, Orally, twice a day, 30 days, 60 Tablet, Refills 0;?Refill tiZANidine HCl Tablet, 4 MG, TAKE 2 TABLETS BY MOUTH EVERY 8 HOURS., 30, 180 Tablet, Refills 1.?? * Therapeutic Injections: Ketorolac : 30 mg (Route: Intramuscular) given by [facility] on left buttock??? Ketorolac : 30 mg (Route: Intramuscular) given by [facility] on left buttock * Labs: * L ab: Hemoglobin A1c (Collection Date & Time - 09/25/2025) ?ValueReference Range?Hemoglobin A1c5.35 - 7.9 % * Procedure Codes: 8 3036 GLYCATED HEMOGLOBIN TEST, Modifiers: QW 3079F DIAST BP 80-89 MM [id number] RVW MEDS BY RX/DR IN [id number] SYST BP >= 140 MM [id number] HG A1C LEVEL LT 7.0%J1885 Ketorolac tromethamine [id number] THER/PROPH/DIAG INJ, SC/IM * Follow Up: 4 Weeks Billing Information: * Procedure Codes: 47401 GLYCATED HEMOGLOBIN TEST. Modifiers: QW 3079F DIAST BP 80-89 MM HG. 1160F RVW MEDS BY RX/DR IN RD. 3077F SYST BP >= 140 MM HG. 3044F HG A1C LEVEL LT 7.0%. J1885 [place] [address] THER/PROPH/DIAG INJ, SC/IM. * ign off status: Completed true * Appointment Provider: Tyron Gentile NP Date: 11/26/2024 Generated for Printing/Faxing/eTransmitting on:?09/30/2025 07:21 PM EST
--- OUTSIDE RECORDS SUMMARY | 2025-09-28 14:47 | XMS_ITS | Continuity of Care Document ---
Author Organization [facility] Address Unknown Care Team Providers Care Ice Scraper Name Role Phone MELANIAJIT MARIE Cat Primary Care Physician [phone] Encounter FT_FIN [id number] Date(s): 09/28/25 - 09/28/25 [place] [address] [place] [address]- Encounter Diagnosis Upper respiratory infection(Discharge Diagnosis) - 09/28/25 Cough(Discharge Diagnosis) - 09/28/25 Discharge Disposition: Home (Routine DC) Attending Physician: Marcio Madison DO Encounter Type: Emergency Allergies, Adverse Reactions, Alerts SubstanceCriticalitySeverityReactionReaction SeverityStatusamitriptylineSeizure ActiveLatexHivesActiveBactrimUnknownActiveUltramseizuresActive Treatment Plan Future Appointments Appointment Date:10/22/2025 09:20:00 AM Scheduled Provider:MILLER Salazar APRN, [place] Location:[facility] Appointment Type:URO Office Visit Functional Status 09/28/25 MRSA/VRE/Other Sxxpjq-XjBdF-Jwix Active/HxNoSymptomatic After Exposure to ContagionNoSymptomatic After Travel High-Risk AreaNoDroplet, Contact Isolation VerificationN/AAirborne,Contact Isolation VerificationN/A Functional Status Assessment AssessmentAssessment ComponentResultEffective DateFall risk total [Arroyo Fall Scale]Ambulatory aid [Arroyo Fall Scale]None, bedrest, wheelchair, nurse 09/28/25Gait [Arroyo Fall Scale]Normal, bedrest, xprdytwb05/26/25Intravenous apparatus [Arroyo Fall Scale]No09/28/25Secondary diagnosis is gzhgkqmVi03/26/25 Mental status [Arroyo Fall Scale]Oriented to own gukgqwm21/26/25History of falling; immediate or within 3 months [Arroyo Fall Scale]No09/28/25 Immunizations Not Given VaccineDateStatusRefusal Reasoninfluenza virus vaccine, live, trivalent10/27/19 Not GivenPatient Refuses Medications Bromfed DM oral syrup 10 mL, Oral, QID for cough and congestion for 7 day(s), 280 mL, Refill(s) 0, [facility]/pharmacy #[id number], 167, cm, 09/28/25 13:13:00 EST, Height/Length Dosing, 67.3, kg, 09/28/25 13:13:00 EST, Weight Dosing Start Date: 09/28/25 Stop Date: 10/05/25 Status: Ordered Medication Dispense Status: Completed Quantity: 280.0 Unit: mL Total Allowed Fills: 1 Fills Dispensed: 0 Depakote ER 500 mg Tab-ER mg tab(s), Oral, Daily, Refills(s) 0 Start Date: 10/27/19 Status: Ordered Medication Dispense Status: Completed Total Allowed Fills: 1 Fills Dispensed: 0 divalproex sodium 250 mg ER Tab mg tab(s), Oral, Daily, Refills(s) 0 Start Date: 10/27/19 Status: Ordered Medication Dispense Status: Completed Total Allowed Fills: 1 Fills Dispensed: 0 divalproex sodium 500 mg ER Tab mg tab(s), Oral, Daily, Refills(s) 0 Start Date: 10/27/19 Status: Ordered Medication Dispense Status: Completed Total Allowed Fills: 1 Fills Dispensed: 0 doxazosin 2 mg Tab 2 mg = 1 tab(s), Oral, BID, # 60 tab(s), Refills(s) 11, Pharmacy: [facility]/pharmacy #[id number], 167, cm, 08/21/25 11:41:00 EST, Height/Length Dosing, 67.3, kg, 08/21/25 11:41:00 EST, Weight Dosing Start Date: 08/21/25 Status: Ordered Medication Dispense Status: Completed Quantity: 60.0 Unit: tab(s) Total Allowed Fills: 12 Fills Dispensed: 0 gabapentin 800 mg Tab mg tab(s), Oral, TID, Refills(s) 0 Start Date: 07/31/22 Status: Ordered Medication Dispense Status: Completed Total Allowed Fills: 1 Fills Dispensed: 0 Iron 100 Plus Oral, Daily, Refill(s) 0 Start Date: 06/25/25 Status: Ordered Medication Dispense Status: Completed Total Allowed Fills: 1 Fills Dispensed: 0 LORazepam 0.5 mg Tab mg tab(s), Oral, TID, Refills(s) 0 Start Date: 10/27/19 Status: Ordered Medication Dispense Status: Completed Total Allowed Fills: 1 Fills Dispensed: 0 meclizine 25 mg Tab 25 mg = 1 tab(s), Oral, TID Start Date: 05/29/25 Status: Ordered Medication Dispense Status: Completed Total Allowed Fills: 1 Fills Dispensed: 0 melatonin 10 mg oral capsule mg cap(s), Oral, Once a day (at bedtime), Refills(s) 0 Start Date: 06/25/25 Status: Ordered Medication Dispense Status: Completed Total Allowed Fills: 1 Fills Dispensed: 0 meloxicam 15 mg oral tablet mg tab(s), Oral, Daily, Refills(s) 0 Start Date: 10/27/19 Status: Ordered Medication Dispense Status: Completed Total Allowed Fills: 1 Fills Dispensed: 0 metformin 500 mg Tab 500 mg = 1 tab(s), Oral, BID Start Date: 05/29/25 Status: Ordered Medication Dispense Status: Completed Total Allowed Fills: 1 Fills Dispensed: 0 Multi complete Multi complete Start Date: 10/27/19 Status: Ordered Medication Dispense Status: Completed Total Allowed Fills: 1 Fills Dispensed: 0 simvastatin 20 mg Tab 20 mg = 1 tab(s), Oral, qPM Start Date: 05/29/25 Status: Ordered Medication Dispense Status: Completed Total Allowed Fills: 1 Fills Dispensed: 0 tiZANidine 4 mg Tab mg tab(s), Oral, q8hr, Refills(s) 0 Start Date: 10/27/19 Status: Ordered Medication Dispense Status: Completed Total Allowed Fills: 1 Fills Dispensed: 0 Trulicity Pen 3 mg/0.5 mL subcutaneous solution 3 mg, SubCutaneous, qWeek Start Date: 05/29/25 Status: Ordered Medication Dispense Status: Completed Total Allowed Fills: 1 Fills Dispensed: 0 Tylenol Oral, Refills(s) 0 Start Date: 07/31/22 Status: Ordered Medication Dispense Status: Completed Total Allowed Fills: 1 Fills Dispensed: 0 Valium 10 mg Tab 10 mg = 1 tab(s), Oral, TID, PRN for anxiety Start Date: 05/29/25 Status: Ordered Medication Dispense Status: Completed Total Allowed Fills: 1 Fills Dispensed: 0 Vitamin D Oral, Refills(s) 0 Start Date: 10/27/19 Status: Ordered Medication Dispense Status: Completed Total Allowed Fills: 1 Fills Dispensed: 0 Zoloft 100 mg Tab 100 mg = 1 tab(s), Oral, Daily Start Date: 05/29/25 Status: Ordered Medication Dispense Status: Completed Total Allowed Fills: 1 Fills Dispensed: 0 Problem List ConditionConfirmationCourseEffective DatesStatusHealth StatusInformantAnemia ConfirmedActiveAnxietyConfirmedActiveDiabetic neuropathyConfirmedActiveEpilepsy ConfirmedActiveSUI (stress urinary incontinence, female)ConfirmedActive FibromyalgiaConfirmedActiveFeeling of incomplete bladder emptyingConfirmedActive GallstoneConfirmedActiveHeadacheConfirmedActiveHeart murmurConfirmedActive History of cervical cancerConfirmedActiveHistory of UTIConfirmedActive Hypocalcemia (deficiency of calcium in the bloodstream)ConfirmedActiveCervical cancerConfirmedActiveMicroscopic hematuriaConfirmedActiveMixed anxiety and depressive disorderConfirmedActiveMuscle painConfirmedActiveMuscle weakness ConfirmedActivePanic disorderConfirmedActiveScoliosis deformity of spine ConfirmedActivechlamydiaConfirmedActiveSmokerConfirmedActiveSpasm of back musclesConfirmedActiveStrain of neck muscleConfirmedActiveType II diabetes mellitus without complicationConfirmedActiveUrethral strictureConfirmedActive Unspecified urethral stricture, femaleConfirmedActive Procedures ProcedureDateRelated DiagnosisBody SiteStatusCystourethroscopy with dilation of urethral stricture06/25/25CompletedCystourethroscopy with dilation of urethral bdizoulnj10/21/19SolqljvlwWxhvvvvmithpZwhwggsegEhxgsb2KlmvrshtvKibltcetvqcanih CompletedPartial hysterectomyCompleted 1biopsy Vital Signs Most recent to oldest [Reference Range]:1Temperature Oral [35.8-37.3 DegC]36.4 DegC (09/28/25 1:11 PM)Peripheral Pulse Rate [60-100 bpm]94 bpm (09/28/25 1:11 PM)Respiratory Rate [14-20 br/min]16 br/min (09/28/25 1:11 PM)Blood Pressure [89-139/59-89 mmHg]135/87mmHg (09/28/25 1:11 PM)SpO2 [89 %]98 % (09/28/25 1:11 PM) Social History Social History TypeResponseSmoking Nolisx26 or more cigarettes (1/2 pack or more)/day in last 30 days;Smoker, current status unknown;Never; Type: Cigarettes; Ready to change: No; Smoking Cessation Yes entered on: 08/21/25Birth SexFemaleSex RepresentationFemale (finding) Hospital Discharge Instructions Patient Education 09/28/2025 14:48:02 Viral Respiratory Infection Viral Respiratory Infection A respiratory infection is an illness that affects part of the respiratory system, such as the lungs, nose, or throat. A respiratory infection that is caused by a virus is called a viral respiratory infection. Common types of viral respiratory infections include: ??? A cold. ??? The flu (influenza). ??? A respiratory syncytial virus (RSV) infection. What are the causes? This condition is caused by a virus. The virus may spread through contact with droplets or direct contact with infected people or their mucus or secretions. The virus may spread from person to person(is contagious). What are the signs or symptoms? Symptoms of this condition include: ??? A stuffy or runny nose. ??? A sore throat or cough. ??? Shortness of breath or difficulty breathing. ??? Yellow or green mucus (sputum). Other symptoms may include: ??? A fever. ??? Sweating or chills. ??? Fatigue. ??? Achy muscles. ??? A headache. How is this diagnosed? This condition may be diagnosed based on: ??? Your symptoms. ??? A physical exam. ??? Testing of secretions from the nose or throat. ??? Chest X-ray. How is this treated? This condition may be treated with medicines, such as: ??? Antiviral medicine. This may shorten the length of time a person has symptoms. ??? Expectorants. These make it easier to cough up mucus. ??? Decongestant nasal sprays. ??? Acetaminophen or NSAIDs, such as ibuprofen, to relieve fever and pain. Antibiotic medicines are not prescribed for viral infections.This is because antibiotics are designed to kill bacteria. They do not kill viruses. Follow these instructions at home: Managing pain and congestion ??? Take aphr-gzm-ultdslw and prescription medicines only as told by your health care provider. ??? If you have a sore throat, gargle with a mixture of salt and water 3???4 times a day or as needed. To make salt water, completely dissolve ?1 tsp (3???6 g) of salt in 1 cup (237 mL) of warm water. ??? Use nose drops made from salt water to ease congestion and soften raw skin around your nose. ??? Take 2 tsp (10 mL) of honey at bedtime to lessen coughing at night. ??? Do not give honey to children who are younger than 1 year. ??? Drink enough fluid to keep your urine pale yellow. This helps prevent dehydration and helps loosen up mucus. General instructions ??? Rest as much as possible. ??? Do not drink alcohol. ??? Do not use any products that contain nicotine or tobacco. These products include cigarettes, chewing tobacco, and vaping devices, such as e-cigarettes. If you need help quitting, ask your health care provider. ??? Keep all follow-up visits. This is important. How is this prevented? Get an annual flu shot. You may get the flu shot in late summer, fall, or winter. Ask your health care provider when you should get your flu shot. ??? Avoid spreading your infection to other people. If you are sick: ??? Wash your hands with soap and water often, especially after you cough or sneeze. Wash for at least 20 seconds. If soap and water are not available, use alcohol-based hand pump erector helper. ??? Cover your mouth when you cough. Cover your nose and mouth when you sneeze. ??? Do not share cups or eating utensils. ??? Clean commonly used objects often. Clean commonly touched surfaces. ??? Stay home from work or school as told by your health care provider. ??? Avoid contact with people who are sick during cold and flu season. This is generally fall and winter. Contact a health care provider if: ??? Your symptoms last for 10 days or longer. ??? Your symptoms get worse over time. ??? You have severe sinus pain in your face or forehead. ??? The glands in your jaw or neck become very swollen. ??? You have shortness of breath. Get help right away if you: ??? Feel pain or pressure in your chest. ??? Have trouble breathing. ??? Faint or feel like you will faint. ??? Have severe and persistent vomiting. ??? Feel confused or disoriented. These symptoms may represent a serious problem that is an emergency. Do not wait to see if the symptoms will go away. Get medical help right away. Call your local emergency services (911 in the [place] Do not drive yourself to the hospital. Summary ??? A respiratory infection is an illness that affects part of the respiratory system, such as the lungs, nose, or throat. A respiratory infection that is caused by a virus is called a viral respiratory infection. ??? Common types of viral respiratory infections include a cold, influenza, and respiratory syncytial virus (RSV) infection. ??? Symptoms of this condition include a stuffy or runny nose, cough, fatigue, achy muscles, sore throat, and fevers or chills. ??? Antibiotic medicines are not prescribed for viral infections. This is because antibiotics are designed to kill bacteria. They are not effective against viruses. This information is not intended to replace advice given to you by your health care provider. Make sure you discuss any questions you have with your health care provider. Document Revised: 12/25/2021 Document Reviewed: 12/25/2021 [employer] Patient Education ?? 2023 [employer]. 09/28/2025 14:48:02 Upper Respiratory Infection, Adult Upper Respiratory Infection, Adult An upper respiratory infection (URI) is a common viral infection of the nose, throat, and upper airpassages that lead to the lungs. The most common type of URI is the common cold. URIs usually get better on their own, without medical treatment. What are the causes? A URI is caused by a virus. You may catch a virus by: ??? Breathing in droplets from an infected person's cough or sneeze. ??? Touching something that has been exposed to the virus (is contaminated) and then touching your mouth, nose, or eyes. What increases the risk? You are more likely to get a URI if: ??? You are very young or very old. ??? You have close contact with others, such as at work, school, or a health care facility. ??? You smoke. ??? You have long-term (chronic) heart or lung disease. ??? You have a weakened disease-fighting system (immune system). ??? You have nasal allergies or asthma. ??? You are experiencing a lot of stress. ??? You have poor nutrition. What are the signs or symptoms? A URI usually involves some of the following symptoms: ??? Runny or stuffy (congested) nose. ??? Cough. ??? Sneezing. ??? Sore throat. ??? Headache. ??? Fatigue. ??? Fever. ??? Loss of appetite. ??? Pain in your forehead, behind your eyes, and over your cheekbones (sinus pain). ??? Muscle aches. ??? Redness or irritation of the eyes. ??? Pressure in the ears or face. How is this diagnosed? This condition may be diagnosed based on your medical history and symptoms, and a physical exam. Your health care provider may use a swab to take a mucus sample from your nose (nasal swab). This sample can be tested to determine what virus is causing the illness. How is this treated? URIs usually get better on their own within 7???10 days. Medicines cannot cure URIs, but your health care provider may recommend certain medicines to help relieve symptoms, such as: ??? Ucaq-dba-wllkydz cold medicines. ??? Cough suppressants. Coughing is a type of defense against infection that helps to clear the respiratory system, so take these medicines only as recommended by your health care provider. ??? Fever-reducing medicines. Follow these instructions at home: Activity ??? Rest as needed. ??? If you have a fever, stay home from work or school until your fever is gone or until your health care provider says your URI cannot spread to other people (is no longer contagious). Your health care provider may have you wear a face mask to prevent your infection from spreading. Relieving symptoms ??? Gargle with a mixture of salt and water 3???4 times a day or as needed. To make salt water, completely dissolve ?1 tsp (3???6 g) of salt in 1 cup (237 mL) of warm water. ??? Use a cool-mist humidifier to add moisture to the air. This can help you breathe more easily. Eating and drinking ??? Drink enough fluid to keep your urine pale yellow. ??? Eat soups and other clear broths. General instructions ??? Take ktrk-pof-odgbeyu and prescription medicines only as told by your health care provider. These include cold medicines, fever reducers, and cough suppressants. ??? Do not use any products that contain nicotine or tobacco. These products include cigarettes, chewing tobacco, and vaping devices, such as e-cigarettes. If you need help quitting, ask your health care provider. ??? Stay away from secondhand smoke. ??? Stay up to date on all immunizations, including the yearly (annual) flu vaccine. ??? Keep all follow-up visits. This is important. How to prevent the spread of infection to others URIs can be contagious. To prevent the infection from spreading: ??? Wash your hands with soap and water for at least 20 seconds. If soap and water are not available, use hand pump erector helper. ??? Avoid touching your mouth, face, eyes, or nose. ??? Cough or sneeze into a tissue or your sleeve or elbow instead of into your hand or into the air. Contact a health care provider if: ??? You are getting worse instead of better. ??? You have a fever or chills. ??? Your mucus is brown or red. ??? You have yellow or brown discharge coming from your nose. ??? You have pain in your face, especially when you bend forward. ??? You have swollen neck glands. ??? You have pain while swallowing. ??? You have white areas in the back of your throat. Get help right away if: ??? You have shortness of breath that gets worse. ??? You have severe or persistent: ??? Headache. ??? Ear pain. ??? Sinus pain. ??? Chest pain. ??? You have chronic lung disease along with any of the following: ??? Making high-pitched whistling sounds when you breathe, most often when you breathe out (wheezing). ??? Prolonged cough (more than 14 days). ??? Coughing up blood. ??? A change in your usual mucus. ??? You have a stiff neck. ??? You have changes in your: ??? Vision. ??? Hearing. ??? Thinking. ??? Mood. These symptoms may be an emergency. Get help right away. Call 911. ??? Do not wait to see if the symptoms will go away. ??? Do not drive yourself to the hospital. Summary ??? An upper respiratory infection (URI) is a common infection of the nose, throat, and upper air passages that lead to the lungs. ??? A URI is caused by a virus. ??? URIs usually get better on their own within 7???10 days. ??? Medicines cannot cure URIs, but your health care provider may recommend certain medicines to help relieve symptoms. This information is not intended to replace advice given to you by your health care provider. Make sure you discuss any questions you have with your health care provider. Document Revised: 04/22/2022 Document Reviewed: 04/22/2022 [employer] Patient Education ?? 2023 [employer]. Follow Up Care 09/28/2025 13:05:20 With:AJIT PETTIT Address: [address] [place] [address]- Business (1) When:10/01/2025 14:38:44 Patient Care team information Care Team Personnel Name: AJIT PETTIT CNP Position: FT Physician Member Role: Primary Care Physician Address: [address] [place] [address]- Telecom: Care Team Related Persons Name: HUSEYIN RIVERA Name: HUSEYIN RIVERA Name: HUSEYIN RIVERA Insurance Providers Guarantor name: RACHEL Ackerman ZEFERINO [facility] Information #: 1 Payer: [facility] Payer Identifier: [id number] Member Number: [id number] Group Number: [id number] Subscriber Identifier: [id number] Relationship to Subscriber: self Coverage Type: MEDICAID Coverage Verification Date: 25 Telecom: [phone] Address: [facility] [address] [place] [address]
[2025-09-30 18:24] VITALS: BP 145/111; PULSE 103; TEMP 36.7; O2SAT 98; BMI 22.5
--- NOTE | 2025-09-30 18:43 | XR_ITS ---
The [address] [address] Patient Name: RACHEL MCGARRY MRN: [id number] date: 1980 Sex: F Assigned Patient Location: ED.MAIN Current Patient Location: Accession/Order Number: [id number] Exam Date: 09/30/2025 19:10 Report Date: 10/01/2025 09:20 At the request of: HANK REYES Procedure: XR chest 1V PORTABLE AP ERECT CHEST 1852 hours CLINICAL HISTORY: Cough, SOB, Wheezing COMPARISON: 11/18/2024 The heart is within normal limits. There is no vascular congestion. No consolidation is noted. There is no effusion or pneumothorax. The osseous structures are intact. XR/XR chest 1V IMPRESSION: NO ACUTE FINDINGS Impression dictated by: Eda Yañez M.D. 10/01/2025 9:20 AM Dictation Location: [place] [address] Electronically authenticated by: [id number] Y Date: 10/01/2025 09:20
--- NOTE | 2025-09-30 18:45 | ED_ITS ---
HPI HPI - General Adult General Chief complaint: Upper Respiratory Infection Stated complaint: UPPER RESPIRATORY INFECTION Time Seen by Provider: 09/30/25 18:36 Source: patient Mode of arrival: walk-in Limitations: no limitations History of Present Illness HPI narrative: Patient is a 45-year-old female that presents to the emergency department with complaints of 4 days of runny nose, cough, chest congestion, and some shortness of breath. She denies having a history of asthma or COPD but does smoke. She did go to [facility] ER 2 days ago and was discharged with cough syrup and 1 dose of a steroid but feels she is not getting any better. Related Data Home Medications ?Medication ?Instructions ?Recorded ?Confirmed divalproex 250 mg tablet,delayed 250 mg PO DAILY 04/2009/30/25 release divalproex 500 mg tablet,extended 500 mg PO BID 09/30/25 release 24 hr doxazosin 2 mg tablet 2 mg PO DAILY 04/20/2309/30 ergocalciferol (vitamin D2) 1,250 1,250 mcg PO DAILY 0 04/20/23 09/30/25 mcg (50,000 unit) capsule ferrous sulfate 325 mg (65 mg 325 mg PO DAILY 04/20/23 09/30/25 iron) tablet (FeroSul) gabapentin 800 mg tablet 800 mg PO TID 04/20/2309/30 metformin 500 mg tablet,extended 500 mg PO DAILY 04/2009/30/25 release 24 hr dulaglutide 3 mg/0.5 mL 3 mg subcut .weekly 03/26/24 09/30/25 subcutaneous pen injector (Trulicity) meloxicam 15 mg tablet 15 mg PO DAILY 03/26/2409/04 multivitamin-ferrous 1 tab PO Q24H 03/26/2409/30 fumarate-folic acid 18 mg-400 mcg tablet (Spectravite Women) sertraline 100 mg tablet 100 mg PO Q24H 03/26/2409/04 simvastatin 20 mg tablet 20 mg PO DAILY 03/26/2409/04 diazepam 10 mg tablet 10 mg PO QPM 11/18/24 melatonin 10 mg capsule 10 mg PO QPM 11/18/24 promethazine 25 mg tablet 25 mg PO BID PRN nausea and 11/18/24 09/30/25 vomiting ondansetron 4 mg disintegrating 4 mg PO Q8H PRN nausea and vomiting 02/26/25 09/30/25 tablet [id number]-[id number]-VG ml 09/30/25 2 mg-30 mg-10 mg/5 mL oral syrup ketorolac 10 mg tablet mg 09/30/25 tizanidine 4 mg tablet mg 09/30/25 Previous Rx's ?Medication ?Instructions ?Recorded dicyclomine 10 mg capsule 10 mg PO QID PRN abdominal p ain 02/26/25 #20 caps ondansetron 4 mg disintegrating 4 mg PO Q6H PRN nausea and 02/26/25 tablet vomiting #20 tabs albuterol sulfate 90 mcg/actuation 2 inh inhalation Q4 H PRN shortness 09/30/25 aerosol inhaler of breath or wheezing #6.7 g tarah azithromycin 250 mg tablet See Rx Instructions PO .COM PLEX #6 09/30/25 (Zithromax Z-Blaze) tabs prednisone 50 mg tablet 50 mg PO DAILY 4 days #4 tab s 09/30/25 Allergies Allergy/AdvReac Type Severity Reaction Status Date / Time metoclopramide (From Reglan) Allergy Intermediate shaking Verified 09/30/25 18:21 amitriptyline Allergy dizzy Verified 09/30/25 18:21 latex Allergy hives Verified 09/30/25 18:21 sulfamethoxazole (From Allergy Hives Verified 09/30/25 18:21 Bactrim) tramadol (From Ultram) Allergy seizures Verified 09/30/25 18:21 trimethoprim (From Bactrim) Allergy Hives Verified 09/30/25 18:21 Opioid HPI Opioid Management Most Recent Opioid Data: Last Pain Scale 7 Today, 18:24 Review of Systems ROS Status of ROS 10 or more systems reviewed and unremark able except as noted in history and below PFSH PFSH Social History Smoking status: Current every day smoker Little interest or pleasure in doing things: not at all Feeling down, depressed, or hopeless: not at all Exam Narrative Exam Narrative: General: No distress, age-appropriate Skin: Warm, dry, no pallor. No rash. Head: Normocephalic, atraumatic. Neck: Supple, non-tender. Eye: Pupils are equal, round and EOMI. No scleral icterus. Ears, Nose, Mouth, and Throat: No nasal mucosal hypertrophy. Oral mucosa is moist, no posterior oropharynx erythema, uvula is mid-line Cardiovascular: Regular Rate and Rhythm without murmur, gallop or rub. Respiratory: No accessory muscle use or respiratory distress. Lungs with wheezing bilaterally in all tolbert, no rhonchi or rales. Chest Wall: no tenderness Musculoskeletal: Full ROM of all extremities, no calf or popliteal tenderness GI: Abdomen is soft, non-distended, non tender to palpation. No masses appreciated. No rebound, guarding, or rigidity noted. Neurological: A&O x4. No cranial nerve dysfunction observed. No truncal ataxia. Moves all extremities. Sensation intact. Psychiatric: Cooperative and interactive. Normal mood and affect. Constitutional Vital Signs, click to edit/add: Last Vital Signs Temp 98.0 F 09/30/25 18:24 Pulse 99 H 09/30/25 19:12 Resp 20 09/30/25 19:12 BP 145/111 H 09/30/25 18:24 Pulse Ox 99 09/30/25 19:12 O2 Del Method Room Air 09/30/25 19:12 Documenting provider has reviewed patient's vital signs: yes Course Vital Signs Vital signs: Vital Signs Temperature 98.0 F 09/30/25 18:24 Pulse Rate 103 H 09/30/25 18:24 Respiratory Rate 16 09/30/25 18:24 Blood Pressure 145/111 H 09/30/25 18:24 Pulse Oximetry 98 09/30/25 18:24 Oxygen Delivery Method Room Air 09/30/25 18:24 Temperature 98.0 F 09/30/25 18:24 Pulse Rate 99 H 09/30/25 19:12 Respiratory Rate 20 09/30/25 19:12 Blood Pressure 145/111 H 09/30/25 18:24 Pulse Oximetry 99 09/30/25 19:12 Oxygen Delivery Method Room Air 09/30/25 19:12 Medical Decision Making [facility] Narrative Medical decision making narrative: This is a 45-year-old female who presents with a 4-day history of runny nose, cough, chest congestion, and mild shortness of breath. She has no prior history of asthma or COPD but is a smoker. The patient was previously seen at another ER 2 days ago and treated with a steroid and cough syrup, but her symptoms have not improved. On examination, bilateral wheezing was noted on auscultation, but she was afebrile, in no respiratory distress, no work of breathing, and vital signs were stable. Given the presentation and clinical findings, the primary concern was an acute viral respiratory illness, potentially complicated by a bacterial component such as bronchitis or early pneumonia. 1 view chest x-ray ordered and reviewed and interpreted by myself as negative for opacities, consolidation, effusion, or pneumothorax. Initial management included nebulized albuterol and on reexamination wheezing improved but still mildly present. Albuterol nebulized breathing treatment ordered. A dose of prednisone 50 mg also started and given in ED tonight. Patient will be discharged with Prednisone 50 mg daily for 4 days and an albuterol inhaler was prescribed to address inflammation and wheezing, Z-Blaze given patient likely has undiagnosed COPD and is high risk for secondary bacterial infection. After albuterol treatment, the patient?s wheezing improved significantly and resolved. The patient was advised to return to the ER if her symptoms worsen or if new concerning symptoms develop, such as increased shortness of breath, chest pain, or high fever. Discussed the importance of patient following up with PCP. Patient discharged in stable condition. Differential Diagnosis Differential Diagnosis: Viral URI, influenza, COVID-19 Lab Data Lab results reviewed: Yes I reviewed the patient's lab results Labs: Lab Results 09/30/25 Range/Units 18:35 Influenza Type A Ag Negative Influenza Type B Ag Negative SARS-CoV-2 Ag (CV2AG) Negative (NEGATIVE) Imaging Data Chest x-ray: Attestation: I have reviewed the pertinent imaging results. My impression: 1 view AP chest x-ray reviewed interpreted by myself as negative for opacities, consolidation, fracture, pneumothorax, or effusion. Discharge Plan Discharge Chief Complaint: Upper Respiratory Infection Clinical Impression: Acute upper respiratory infection, Wheezing Patient Disposition: Home, Self-Care Time of Disposition Decision: 20:32 Condition: Good Mode of Transportation: Private Vehicle Prescriptions / Home Meds: New prednisone 50 mg tablet 50 mg PO DAILY 4 Days Qty: 4 0RF albuterol sulfate 90 mcg/actuation HFA aerosol inhaler 2 inh inhalation Q4H PRN (Reason: shortness of breath or wheezing) Qty: 6.7 0RF azithromycin [Zithromax Z-Blaze] 250 mg tablet See Rx Instructions PO .COMPLEX Qty: 6 0RF Rx Instructions: For 250 mg dose pack: take 500 mg today (day 1), then 250 mg for 4 days (days 2-5) No Action Trulicity 3 mg/0.5 mL pen injector 3 mg SUBCUT .weekly meloxicam 15 mg tablet 15 mg PO DAILY Spectravite Women 18-400 mg-mcg tablet 1 tab PO Q24H sertraline 100 mg tablet 100 mg PO Q24H simvastatin 20 mg tablet 20 mg PO DAILY ondansetron 4 mg tablet,disintegrating 4 mg PO Q8H PRN (Reason: nausea and vomiting) ondansetron 4 mg tablet,disintegrating 4 mg PO Q6H PRN (Reason: nausea and vomiting) Qty: 20 0RF dicyclomine 10 mg capsule 10 mg PO QID PRN (Reason: abdominal pain) Qty: 20 0RF tizanidine 4 mg tablet ketorolac 10 mg tablet [id number]-[id number]-VW 2-30-10 mg/5 mL syrup divalproex 250 mg tablet,delayed release (DR/EC) 250 mg PO DAILY divalproex 500 mg tablet extended release 24 hr 500 mg PO BID doxazosin 2 mg tablet 2 mg PO DAILY ergocalciferol (vitamin D2) 1,250 mcg (50,000 unit) capsule 1,250 mcg PO DAILY ferrous sulfate [FeroSul] 325 mg (65 mg iron) tablet 325 mg PO DAILY gabapentin 800 mg tablet 800 mg PO TID metformin 500 mg tablet extended release 24 hr 500 mg PO DAILY diazepam 10 mg tablet 10 mg PO QPM melatonin 10 mg capsule 10 mg PO QPM promethazine 25 mg tablet 25 mg PO BID PRN (Reason: nausea and vomiting) Print Language: Tajik Instructions: Upper Respiratory Infection (ED), Wheezing (ED) Additional Instructions: Medications: * Albuterol inhaler or nebulizer (as prescribed) * Use as needed for wheezing or shortness of breath. * Use 2 puffs of the inhaler (or one nebulizer treatment) every 4-6 hours as needed for wheezing or cough. * Continue nebulizer treatments every 4-6 hours until symptoms improve. * Azithromycin (Z-Blaze) * Take 500 mg on Day 1, then 250 mg daily for 4 more days (total 5-day course). * Finish the full course even if you start feeling better to ensure the infection is fully treated. * Prednisone (50 mg daily) * Take 50 mg once a day for the next 4 days. * Prednisone is a corticosteroid to help reduce inflammation in your airways and improve breathing. * Take the medication with food to reduce stomach irritation. * Do not stop prednisone suddenly?finish the entire course as directed, even if you start feeling better. Follow-up Care: * Primary Care Physician or Control Officer: Schedule a follow-up appointment within 3-5 days to assess your recovery and check lung function. If your symptoms worsen, follow up sooner. * If your symptoms do not improve significantly, or if they worsen, please seek medical attention. Symptoms to Watch For: * Increased shortness of breath or difficulty breathing. * Persistent fever greater than 100.4?F that doesn't improve with Tylenol (acetaminophen). * New or worsening cough with thick green/yellow sputum. * Chest pain, dizziness, or confusion. Return to the Emergency Department if: * You experience severe shortness of breath or difficulty breathing. * You develop worsening fever or other concerning symptoms despite taking your medications. Self-care Tips: * Rest and drink plenty of fluids to help your body recover. * Use a humidifier to help with congestion and ease breathing. * Avoid smoking or exposure to second-hand smoke to prevent further irritation to your airways. * If using a rescue inhaler, carry it with you at all times in case you need it for sudden shortness of breath or wheezing. Referrals: [facility] [Primary Care Provider] - 1 week
[2025-09-30 19:10] LABS: SARS-CoV-2 Ag NEGATIVE (NEGATIVE)
[2025-09-30 19:12] VITALS: PULSE 99; O2SAT 99
[2025-09-30] MEDS: IPRATROPIUM/ALBUTEROL SULFATE 3 ML AMPUL.NEB IH (19:12)
--- OUTSIDE RECORDS SUMMARY | 2025-09-30 19:21 | XMS_ITS | Patient Health Record ---
Author Organization [facility] Address [address] [place] [address] Care Team Providers Care Ruling Technician Name Role Phone Niki Gentile Primary Care Provider Yokasta Perera Unavailable [phone] Dr. Andrés Chavarria Unavailable [phone] Allergies Allergen (clinical drug ingredient) Drug/Non Drug Allergy documented on EMR Reaction Allergy Type Onset Date Status Latex latex (uncoded) hives Allergy Activesulfamethoxazole / trimethoprimBactrim DSdizzinessDrug AllergyActive tramadolUltramcauses seizuresDrug AllergyActive Results Component Value Reference Range Flag Notes Troponin I High Sensitivity Reviewed date:08/23/2025 08:26:35 AM Interpretation: Performing Lab:, [facility], [address] Notes/Report: decimal is removed and results are in whole numbers. Troponin units are changed from pg/ml to ng/L. Also, the Chest Pain Accreditation requirement, element EC5.M1l2. The Troponin units of report have been changed to meet the Comment Redraw at 8 Troponin I High Sensitivity <3 0-15 N Troponin I High Sensitivity Reviewed date:08/23/2025 08:26:35 AM Interpretation: Performing Lab:, [facility], [address] Notes/Report: The Troponin units of report have been changed to meet the Chest Pain Accreditation requirement, element EC5.M1l2. Troponin units are changed from pg/ml to ng/L. Also, the decimal is removed and results are in whole numbers.Troponin I High Sensitivity3 0-15NComplete Blood Count Auto Diff Reviewed date:08/23/2025 08:26:35 AM Interpretation: Performing Lab:, [facility], [address] Notes/Report:White Blood Count11.03.8-11.6 [CFU]/mLNUncorrected WBC11.03.8-11.6 10*3/uLNRed Blood Count4.603.60-5.00 10*6/wQDMpjsnuifze55.011.8-15.4 g/dLN Wehpzqkrgd59.234.0-46.4 %NMean Corpuscular Avarzb81.480-100 fLNMean Corpuscular Uirzsrnagd87.424.7-34.3 pgNMean Corpuscular HGB Conc34.832.0-35.0 g/dLNRed Cell Distribution Width12.711.9-15.3 %NPlatelet Jrjpw450492-710 10*3/uLNMean Platelet Volume7.66.3-10.7 fLNNeutrophils % (Auto)49.7. %Lymphocytes % (Auto)41.3. % Monocytes % (Auto)7.7. %Eosinophils % (Auto)0.6. %Basophils % (Auto)0.7. %NRBC% 0.10-0.5 /100{WBC}NNeutrophils # (Auto)5.51.8-7.7 10*3/uLNLymphocytes # (Auto) 4.51.00-4.8 10*3/uLNMonocytes # (Auto)0.80.0-0.8 10*3/uLNEosinophils # (Auto)0.1 0.0-0.45 10*3/uLNBasophils # (Auto)0.10.0-0.2 10*3/uLNMonocyte Distribution Width16.640.00-20.00 %NProthrombin Time INR Reviewed date:08/23/2025 08:26:35 AM Interpretation: Performing Lab:, [facility], [address] Notes/Report:Prothrombin Time10.49.0-12.9 sN A hematocrit value greater than 55% may lead to inaccurate results in coagulation testing. Patients having hematocrit values >55% require a special collection tube for coagulation studies. Please contact the laboratory at [phone] for redraw instructions. INR0.9 INR Therapeutic Range A) Pre- and Peroperative [...] with mechanical heart valves: 3 - 4.5 Creatine Kinase Reviewed date:08/23/2025 08:26:35 AM Interpretation: Performing Lab:, [facility], [place] Notes/Report:Creatine Pyigmt0223-856 U/LNB-Type Natriuretic Peptide Reviewed date:08/23/2025 08:26:35 AM Interpretation: Performing Lab:, [facility], [facility] [place] Notes/Report:B-Type Natriuretic Zvpzeto25.05-100 pg/mLNBasic Metabolic Panel Reviewed date:08/23/2025 08:26:35 AM Interpretation: Performing Lab:, [facility], [place] Notes/Report:Amxgvmx2725-172 mg/dLN Random Glucose Reference Range is dependent on time and content of last meal. Glucose of more than 200 mg/dL in a nonstressed, ambulatory subject supports the diagnosis of Diabetes Mellitus. ADA recommended reference range Blood Urea Jrxoonlk499-91 mg/jPVXqpqei983741-354 mmol/LLPotassium3.93.5-5.1 mmol/RWLzezeuoe6979-716 mmol/LLCarbon Ngkphfl24.421.0-31.0 mmol/LNCalcium8.98.6- 10.3 mg/dLNCreatinine0.560.60-1.20 mg/dLLEstimated GFR>60.0Anion Gap12.56.0-15.0 NCreatinine Clr Calc Uiiqxgxa207.95US renal BI Reviewed date:04/13/2025 08:55:09 AM Interpretation: Performing Lab: Notes/Report: [facility] [address] [facility] [place] [address] Ultrasound Report Signed Patient: Asif Zuñiga MR#: [id number] 1 : 1980 Acct:[id number] Age/Sex: 45 / F ADM Date: 03/06/25 Loc: UL Room: Type: DEP CLI Attending Dr: Niki DEJESUS Ordering Provider: OLEG Sharp Date of Service: 03/06/25 US/US renal BI: Recurrent UTI;Sensation of pressure in bladder area;Drync Copies to: OLEG Sharp BILATERAL RENAL AND [...] Yañez M.D. 03/06/2025 12:58 PM Dictation Location: [place] [address] Tech: [facility] Transcribed By: ROSA MARIA 03/06/25 1258 Dictated By: Eda Yañez MD 03/06/25 1258 Signed By: <Electronically signed by MD Eda Yañez in OV> 03/06/25 1258US venous duplex LE BI Reviewed date:04/13/2025 08:51:32 AM Interpretation: Performing Lab: Notes/Report: [facility] [address] [place] [address] [place] [address] Ultrasound Report Signed Patient: Asif Zuñiga MR#: [id number] 1 : 1980 Acct:[id number] Age/Sex: 45 / F ADM Date: 03/06/25 Loc: UL Room: Type: DEP CLI Attending Dr: Niki DEJESUS Ordering Provider: OLEG [...] Goss MD,FACS,FSVS 03/06/2025 1:25 PM Dictation Location: [place] [address] Tech: Janet Jimi Transcribed By: ROSA MARIA 03/06/25 1325 Dictated By: Marcio Goss MD 03/06/25 1325 Signed By: <Electronically signed by Marcio Goss MD in OV> 03/06/25 1325Urine Culture Reviewed date:02/23/2025 11:18:04 AM Interpretation: Performing Lab:, [facility], [address] Notes/Report: Reason for Exam Urinary retention UrineComplete Blood Count Auto Diff Reviewed date:02/23/2025 11:31:15 AM Interpretation: Performing Lab:, [facility], [address] Notes/Report: complication, without long- Reason for Exam Type 2 diabetes mellitus withoutWhite Blood Count18.13.8-11.6 10*3/uLHUncorrected WBC18.13.8-11.6 10*3/uLHRed Blood Count4.623.60-5.00 10*6/uL IJdalemhnav79.911.8-15.4 g/oIFMwjmfyzecy35.734.0-46.4 %NMean Corpuscular Volume 88.180-100 fLNMean Corpuscular Wbgwqpncsd30.024.7-34.3 pgNMean Corpuscular HGB Conc34.132.0-35.0 g/dLNRed Cell Distribution Width13.011.9-15.3 %NPlatelet Count 382104-312 10*3/uLNMean Platelet Volume8.26.3-10.7 fLNNeutrophils % (Auto)63.0. %Lymphocytes % (Auto)30.9. %Monocytes % (Auto)5.0. %Eosinophils % (Auto)0.3. % Basophils % (Auto)0.8. %NRBC%0.00-0.5 /100{WBC}NNeutrophils # (Auto)11.41.8-7.7 10*3/uLHLymphocytes # (Auto)5.61.00-4.8 10*3/uLHMonocytes # (Auto)0.90.0-0.8 10*3/uLHEosinophils # (Auto)0.10.0-0.45 10*3/uLNBasophils # (Auto)0.10.0-0.2 10*3/uLNVitamin D 25 Hydroxy Reviewed date:02/21/2025 01:06:52 PM Interpretation: Performing Lab: Notes/Report: Reason for Exam Vitamin D deficiency Reason for Exam Hypercholesterolemia complication, without long- Reason for Exam Type 2 diabetes mellitus withoutVitamin D 25 Hydroxy Total76.2 30-100 ng/mLN VITAMIN D STATUS 25(OH)VITAMIN D RANGE (ng/mL) Deficient <20 Insufficient 20 to <30 Sufficient 30 to 100 Reference: Jovanni MF,Dominique NC, Gillian NINA, et al. Evaluation,treatment, and prevention of vitamin D deficiency; an Endocrine Society clinical practice guideline. JCEM. 2010; 96(7):1911-30. Lipid Panel Reviewed date:02/21/2025 01:06:00 PM Interpretation: Performing Lab: Notes/Report: Reason for Exam Type 2 diabetes mellitus without complication, without long- Reason for Exam Hypercholesterolemia Reason for Exam Vitamin D xcowshtjlzAzzwpnizmgb813110-809 mg/dLH Chol less than 200 mg/dl low risk Chol 201-239 mg/dl borderline risk Chol 240 mg/dl and greater high risk HDL Ksutosrgmtj5152-70 mg/dLN HDL CHOL ATP-III CLASSIFICATION Cardiovascular Risk HDL > or equal to 60 mg/dL LOW HDL < 40 mg/dL HIGH Triglyceride w/Sonjgq2763-937 mg/dLH TRIG ATP III CLASSIFICATION TRIG less than 150 mg/dL Normal TRIG 150-199 mg/dL Borderline high TRIG 200-500 mg/dL High TRIG greater than 500 mg/dL Very high Standard traceable to the Center for Disease Conrtrol and Prevention (CDC) test method. LDL Cholesterol,Uvbbzwxscq8844-122 mg/dLH LDL ATP III CLASSIFICATION LDL less than 100 mg/dL Optimal LDL 100-129 mg/dL Near or above optimal LDL 130-159 mg/dL Borderline high LDL 160-189 mg/dL High LDL greater than 189 mg/dL Very high VLDL QCWTNGYYIEN66Jwfm/HDL Ratio4.5<5.0Comprehensive Metabolic Panel Reviewed date:02/21/2025 01:06:14 PM Interpretation: Performing Lab:, [facility], [place] Notes/Report: Reason for Exam Type 2 diabetes mellitus without complication, without long- Reason for Exam Hypercholesterolemia Reason for Exam Vitamin D cohsaozkwjQpobnkf5320-803 mg/dLN Random Glucose Reference Range is dependent on time and content of last meal. Glucose of more than 200 mg/dL in a nonstressed, ambulatory subject supports the diagnosis of Diabetes Mellitus. ADA recommended reference range Blood Urea Jrxxcrtg53-47 mg/dLNCreatinine0.740.60-1.20 mg/cAWPzwqlw738087-801 mmol/LLPotassium3.93.5-5.1 mmol/VTGcfyisub5895-731 mmol/LLCarbon Lttoman24.8 21.0-31.0 mmol/LNCalcium9.78.6-10.3 mg/dLNTotal Protein7.36.4-8.9 g/dLNAlbumin Level4.63.5-5.7 g/dLNGlobulin2.7Albumin/Globulin Ratio1.7Bilirubin,Total0.40.3- 1.0 mg/dLNAspartate Amino Dnpnftazdwu7073-35 U/LNAlanine Ibfvuawwdaupistu076-01 U/LNAlkaline Xekkmlopucx8226-662 U/LNEstimated GFR>60.0Anion Gap15.16.0-15.0 meq/LHA1C with Estimated Average Glu Reviewed date:02/21/2025 01:06:34 PM Interpretation: Performing Lab:, [facility], [address] [place] Notes/Report: Reason for Exam Type 2 diabetes mellitus without complication, without long-Hemoglobin A1C6.44.3-5.6 %H Increased risk for diabetes: 5.7 - 6.4 diabetes: >6.4 glycemic control for adults with diabetes: <7.0 Estimated Average Ldoanle842GUFBM - Urinary Tract Infection (HTRx) Reviewed date:02/01/2025 09:00:13 PM Interpretation: Performing [...] testing is not performed at this lab. Electrical/Instrument Technician to CFU/mL equivalent thresholds were established based on studies using known CFU/mL urine specimens performed at [facility] in [place], [place]. Testing performed by [facility] ([place] [address]; CLIA# [id number]; Workforce Advisor Odessa Capellan, PhD, [facility])). This test was developed, and its performance characteristics determined by [facility]. It has not been cleared or approved by the FDA. However, such approval/clearance is not required, as the laboratory is regulated and qualified under CLIA to perform high-complexity testing. This test is used for clinical purposes and should not be regarded as investigational or for research. *Approximate copies of target nucleic acid per &micro;L (Low: <2,500 copies/&micro;L, Moderate: 2,500-50,000 copies/&micro;L,High: >50,000 copies/&micro;L) National Infectious Disease Consensus Data Potentially effective oral antibiotics, based on presence of detected microbes, antimicrobial resistance genes, and national antimicrobial sensitivity data (see Summary Antibiogram).Acinetobacter baumannii0.12362.961 - 24.689 ppmAcinetobacter baumanniiNot Uirrkwfj14.961 - 24.689 ppmCitrobacter freundii0.04841.000 - 31.881 ppmCitrobacter freundiiNot Vpmdipkw56.000 - 31.881 ppmEnterobacter aerogenes, cloacae0.67215.000 - 31.535 ppmEnterobacter aerogenes, cloacaeNot Quqckwdq29.000 - 31.535 ppmEnterococcus faecalis, faecium0.76759.000 - 31.575 ppmEnterococcus faecalis, faeciumNot Ygejidzu07.000 - 31.575 ppmEscherichia coli0.52846.000 - 28.500 ppmEscherichia coliNot Itivrobu46.000 - 28.500 ppmKlebsiella pneumoniae, oxytoca0.13483.000 - 30.500 ppmKlebsiella pneumoniae, oxytocaNot Xhrimbfj25.000 - 30.500 ppm Morganella morganii0.02232.961 - 24.689 ppmMorganella morganiiNot Exepthug40.961 - 24.689 ppmProteus mirabilis, vulgaris0.86918.000 - 28.500 ppmProteus mirabilis, vulgarisNot Maqxclvo08.000 - 28.500 ppmPseudomonas aeruginosa0.000 23.000 - 28.500 ppmPseudomonas aeruginosaNot Sqquvjqj91.000 - 28.500 ppm Staphylococcus aureus0.10326.000 - 30.902 ppmStaphylococcus aureusNot Detected 26.000 - 30.902 ppmStreptococcus agalactiae (Group B Strep)0.16294.000 - 32.222 ppmStreptococcus agalactiae (Group B Strep)Not Eawgierl21.000 - 32.222 ppm Luz Elena albicans, parapsilosis, tropicalis0.10567.961 - 30.770 ppmCandida albicans, parapsilosis, tropicalisNot Ijruvsjz09.961 - 30.770 ppmCandida glabrata (Nakaseomyces glabratus)0.34860.000 - 32.138 ppmCandida glabrata (Nakaseomyces glabratus)Not Pzojaeqj42.000 - 32.138 ppmCandida krusei (Pichia kudriavzevii)27.72714.000 - 32.271 ppmCandida krusei (Pichia kudriavzevii) Dvryjosx49.000 - 32.271 ppmSerratia marcescens0.04944.000 - 31.204 ppmSerratia marcescensNot Naibezdx90.000 - 31.204 ppmStreptococcus pyogenes (Group A strep) 0.94898.961 - 24.689 ppmStreptococcus pyogenes (Group A strep)Not Qrcfitaw18.961 - 24.689 ppmStaphylococcus saprophyticus0.48300.961 - 24.689 ppmStaphylococcus saprophyticusNot Bttmajrv84.961 - 24.689 ppmStaphylococcus epidermidis, haemolyticus, lugdunensis0.60225.961 - 24.689 ppmStaphylococcus epidermidis, haemolyticus, lugdunensisNot Mtbbhxnf26.961 - 24.689 ppmUrinalysis automated Reviewed date:01/30/2025 10:33:53 AM Interpretation: Performing Lab: Notes/Report: Urine-ColoryellowAppearanceclearSpecific Gravity1.015pH6.0Glucose+- 100mg/dL ProteinnegativeOccult BloodnegativeBilirubinnegativeUrobilinogen,Semi-Qn0.2 Nitrite, UrinenegativeKetonesnegativeWBC EsterasenegativeMM screening mammo BI w/CAD Reviewed date:02/15/2025 10:33:45 PM Interpretation: Performing Lab: Notes/Report: [facility] [address] [place] [address] Mammography Report Signed Patient: Asif Zuñiga MR#: [id number] 1 : 1980 Acct:[id number] Age/Sex: 45 / F Adm Date: 02/15/25 Loc: MD Room: Type: [facility] Attending Dr: Niki DEJESUS Ordering Provider: OLEG Sharp Date of Service: 02/15/25 Procedure(s): MM screening mammo BI w/CAD Accession Number(s): ([id number]) MM/MM screening mammo BI w/CAD: Screening mammogram [...] Welch M.D. 02/15/2025 10:28 AM Dictation Location: [facility] Dictated By: Praveen Welch DO 02/15/25 1027 Signed By: <Electronically signed by Praveen Welch DO in OV> 02/15/25 1028Hemoglobin A1c Reviewed date:09/25/2025 12:29:52 PM Interpretation: Performing Lab: Notes/Report: Hemoglobin A1c5.35 - 7.9 %Urine Drug Screen Reviewed date:05/31/2025 01:31:03 PM Interpretation: Performing Lab: Notes/Report: THCNegCOCNegAMPNegOPINegMAMPNegPCPNegBARNegBZOPosMTONegMDMANegOXYNegBUPNeg Hemoglobin A1c Reviewed date:05/31/2025 01:31:47 PM Interpretation:5.7 Performing Lab: Notes/Report: 5.7Hemoglobin A1c5.75 - 7.9 %Hemoglobin A1c Reviewed date:10/19/2024 10:01:12 AM Interpretation:6.5 Performing Lab: Notes/Report: 6.5Hemoglobin A1c6.55 - 7.9 %QuantiFERON TB Gold Reviewed date:04/20/2025 11:53:41 AM Interpretation: Performing Lab:, [facility], [address] [place] Notes/Report: No response to M tuberculosis antigens detected. Infection with [...] interferon gamma. Chemiluminescence immunoassay methodology Performed at: [employer] [id number] Workforce Advisor: Daniel Wen PhD, Phone: [phone] CriteriaComment. M tuberculosis infection (including disease) and is intended for use in conjunction with risk assessment, radiography, and other medical and diagnostic evaluations. The QuantiFERON-TB Gold Plus result is determined by subtracting the Nil value from either TB antigen (Ag) value. The Mitogen tube serves as a control for the test. QuantiFERON-TB Gold Plus is a qualitative indirect test for Quant TB Ag Value0.26.Quantiferon Nil Value0.06.Quantiferon TB Mitogen>10.00. Quant TB2 Ag Value0.17.Quant TB Gold PlusNegativeNegativeRPR w/rfx to Quant & TP Abs Reviewed date:04/19/2025 07:37:23 AM Interpretation: Performing Lab:, [facility], Michelle BEAN, [place] Notes/Report: Syphilis: RPR with Reflex to RPR Titer and [...] or current (potential early) syphilis. Performed at: [address] [id number] Workforce Advisor: Daniel Wen PhD, Phone: [phone], Rfx Quant RPRNon ReactiveNon ReactiveRPR InterpretationComment.T-Cell Gene Rearrangement, PCR (Not yet reviewed by provider) Interpretation: Performing Lab:, [facility], [address] [facility] Notes/Report:T-Cell PCR InterpretationComment. NEGATIVE: No clonal T-cell receptor gamma (TCRG) population [...] remains, T-cell receptor beta (TCRB, test code 851385) test is recommended. The combined T-cell clonality detection rate of TCRG and TCRB is 94-99%. The T-cell receptor gene rearrangement panel (includung both TCRG and TCRB, test code 284876) is available for parallel testing. Director Review:Comment. Technical Component performed at [facility] Professional Component performed by: Abhi Ray, PhD, [facility] Director, Molecular Oncology [facility] [id number], [address], [place], operated [facility] [address] Methodology:Comment. Patient cellular DNA is subjected to polymerase chain [...] 5 clonal cells per 100 normal cells. References:Comment. 1. Rosendo Ramirez, et al. Powerful strategy for polymerase chain reaction-based clonality assessment in T-cell malignancies. Report of the BIOMED-2 Concerted Action BHM4 [id number]. Leukemia 2007: 21:215-221. 2. Stevan VÁSQUEZ, et al. EuroClonality/BIOMED-2 guidelines for interpretation and reporting of Ig/TCR clonality testing in suspected lymphoproliferations. Leukemia 2012: 26:6863-5618. This test was developed and its performance characteristics determined by [facility] ([facility]: [place]). It has not been cleared or approved by the Food and Drug Administration. Performed at: [facility] [address] [facility], [facility], [place] [id number] Workforce Advisor: Van Delvalle [facility], Phone: [phone] Reason For Referral Reason SCHEDULED further eval and treat Diagnosis 1 Urinary retention (R 33.9) Referral Organization [facility] Referring Provider First Name Niki Referring Provider Last Name [facility] Referring Provider Speciality Nurse Nely alcantar Referred Provider [facility] [place] . Referred Provider Specialty Urology Referral Priority Routine Reason *FAXED 02/21 - FAXED REFERRAL UPDATE 03/02 eval and treat, update mri shows possible fatty tumor in lumbar spine, increasing neurological symptoms Diagnosis 1 Lumbar disc disorder with myelopathy (M51.06) Referral Organization [facility] Referring Provider First Name Niki Referring Provider Last Name Krupa Referring Provider Speciality Nurse Nely alcantar Referred Provider [facility], . Referred Provider Specialty Neurosurgery General Notes Jane Quiles 0 03/06/2025 03:47:20 PM >[facility] is now [facility]. 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 Referred Provider Specialty Neurology Referral Priority Routine Reason SCHEDULED 03/14 ree zulma and treat, trending elevated wbc w/o infection Diagnosis 1 Leukocytosis, unspec ified (D72.829) Referral Organization [facility] Referring Provider First Name Niki Referring Provider Last Name Krupa Referring Provider Speciality Nurse Nely alcantar Referred Provider [facility] Referred Provider Specialty Hematology Referral Priority Routine Medications Medication SIG (Take, Route, Frequency, Duration) Notes Start Date End Date Status oxyBUTYnin Chloride 5 MG Tablet TAKE 1 T ABLET BY MOUTH TWICE A DAY FOR 30 DAYS; Duration: 30 ActiveSertraline HCl 100 MG TabletTAKE 1 TABLET BY MOUTH EVERY DAY; Duration: 30 ActivemetFORMIN HCl 500 MG TabletTAKE 1 TABLET BY MOUTH TWICE A DAY; Duration: 30ActiveDoxazosin Mesylate 2 MG Tablet1 tablet Orally twice a day; Duration: 30 daysActiveoxyCODONE-Acetaminophen 5-325 MG Tablet 1 tablet Orally every 6 hrs; Duration: 5 days As needed 5ActiveCVS Spectravite Women - TabletTAKE 1 TABLET BY MOUTH EVERY DAY; Duration: 90ActiveSimvastatin 20 MG Tablet1 tablet in the evening Orally Once a day; Duration: 30 daysActivediazePAM 10 MG TabletTAKE 1 TABLET BY MOUTH AT BEDTIME ONCE EVERY DAY; Duration: 5ActiveGabapentin 800 MG TabletTAKE 1 TABLET BY MOUTH TWICE A DAY; Duration: 30ActiveFerrous Sulfate 325 (65 Fe) MG TabletTAKE 1 TABLET BY MOUTH DAILY; Duration: 30ActiveKetorolac Tromethamine 10 MG TabletTAKE 1 TABLET BY MOUTH EVERY 6 HOURS WITH FOOD OR MILK FOR 5 DAYS; Duration: 5 daysActivePromethazine HCl 25 MG TabletTAKE 1 TABLET BY MOUTH EVERY 12 HOURS FOR 30 DAYS; Duration: 30ActiveOneTouch Ultra - StripCHECK BLOOD SUGAR TWICE DAILY AND WHEN NEEDED; Duration: 30ActiveVitamin D (Ergocalciferol) 1.25 MG (44356 UT) CapsuleTAKE 1 CAPSULE BY MOUTH ONCE A WEEK; Duration: 28ActivetiZANidine HCl 4 MG TabletTAKE 2 TABLETS BY MOUTH EVERY 8 HOURS.; Duration: 41HqfvrxNhspssct-Mvpivqcix-YX 3.5-14358-1 Suspension4 drops into affected ear Otic Three times a day; Duration: 5 days5Active Acetaminophen 500 MG Tablet1 tablet Orally every 6 hrs; Duration: 30 daysActive Multi Complete CapsuleOrally dailyActiveSertraline HCl 50 MG TabletTAKE 1 TABLET BY MOUTH EVERY DAY; Duration: 35933 totalActiveLORazepam 0.5 MG Tablet 1 tablet Orally Once a day; Duration: 30 days As needed 5ActiveMeclizine HCl 25 MG TabletTAKE 1/2 TO 1 TABLET BY MOUTH EVERY 6 TO 8 HOURS FOR 10 DAYS; Duration: 10ActiveDivalproex Sodium ER 500 MG Tablet Extended Release [...] Orally 3 times a day; Duration: 30 daysActiveMeloxicam 15 MG TabletTAKE 1 TABLET BY MOUTH EVERY DAY; Duration: 30Active Social History Tobacco Use: Social History Observation Description Date Details (start date - stop date) Current Smoker NA - NA Sex Assigned At : Social History Observation Description Sex Assigned At Female Social History GeneralSocial InfoQuestionAnswerNotesTransition of Care:ER/UC/hospital since last office visit?NoSpecialist seen since last office visit?Yes, report on file neuroDepression Screening (PHQ-9):Little interest or pleasure in doing things Several daysFeeling down, depressed, or hopelessSeveral daysTrouble falling or staying asleep, or sleeping too muchSeveral daysFeeling tired or having little energySeveral daysPoor appetite or overeatingNot at allFeeling bad about yourself-or that you are a failure or have let yourself or your family downMore than half the daysTrouble concentrating on things, such as reading the newspaper or watching televisionSeveral daysMoving or speaking so slowly that other people could have noticed. Or the opposite being so fidgetyor restless that you have been moving around a lot more than usualSeveral daysThoughts that you would be better off , or of hurting yourself in some wayNot at allTotal Score8 IntepretationMild DepressionSubstance abuse/mental health issues of patient/familyPatient -Caffeine Use, Stress/AnxietyFamily Member -DeniesAbility to understand healthcare/treatmentPatient:GoodTobacco Screen:When did you start nxptsfj9302/02/1988Are you a:current smoker? How often do you smoke cigarettes? every day? How many cigarettes a day do you smoke?11-20? How soon after you wake up do you smoke your first cigarette?6-30 minSocial/Support Concerns:Patient:No Alcohol Screening:Did you have a drink containing alcohol in the past year?No Lrukbn1HsbajrokfhailcVrtggfojXvhxpvgpi affecting healthPoor/Risky Behaviors: Second Hand Smoke-Communication Barrier:Language Barrier?:NoFood Insecurity ScreeningSocial InfoQuestionAnswerNotesDrugsDrug useDenies drug useDrug/Alcohol: Social InfoQuestionAnswerNotesAUDIT-C (Standard)Did you have a drink containing alcohol in the past year?PrKuaknn0CkafnaphwdleipHfkgkglqUlpeunv Use:Social Info QuestionAnswerNotesTobacco Control (Standard)Tobacco use:Current smoker? How often do you smoke cigarettes?Every day? How many cigarettes a day do you smoke? 11-20Section Notes: Stress increased d/t daughte rs health condition. Problems Problem Type SNOMED Code ICD Code Onset Dates Problem Status W/U Status Risk Notes Problem Tobacco user (742941313) Nicotin e dependence, unspecified, uncomplicated (F17.200) ActiveconfirmedProblemPrimary insomnia (3581322)Primary insomnia (F51.01)Active confirmedProblemFibromyalgia (860954718)Fibromyalgia (M79.7)Activeconfirmed ProblemChronic back pain (050761544)Chronic back pain (M54.9)Activeconfirmed ProblemVitamin D deficiency (95019460)Vitamin D deficiency (E55.9)Active confirmedProblemLumbar radiculopathy (865648585)Lumbar radiculopathy (M54.16) ActiveconfirmedProblemPosttraumatic stress disorder (84131782)PTSD (post- traumatic stress disorder) (F43.10)ActiveconfirmedProblemModerate recurrent major depression (56678390)Moderate episode of recurrent major depressive disorder (F33.1)ActiveconfirmedProblemEpilepsy (64896019)Nonintractable epilepsy without status epilepticus, unspecified epilepsy type (G40.909)Activeconfirmed ProblemPanic disorder (657198842)Panic Disorder (F41.0)ActiveconfirmedProblem Cervical spondylosis without myelopathy (579394583)Osteoarthritis of spine with radiculopathy, cervical region (M47.22)ActiveconfirmedProblemCervical discogenic pain (747558706)Cervical back pain with evidence of disc disease (M50.90)Active confirmedProblemHypercholesterolemia (58174702)Hypercholesterolemia (E78.00) ActiveconfirmedProblemType II diabetes mellitus without complication (512789545) Type 2 diabetes mellitus without complication, without long-term current use of insulin (E11.9)ActiveconfirmedProblemIrritable bowel (38536256)Irritable bowel (K58.9)ActiveconfirmedProblemRefractory migraine (385512195)Intractable migraine without status migrainosus, unspecified migraine type (G43.919)Activeconfirmed ProblemScoliosis (268610420)Scoliosis of thoracolumbar spine, unspecified scoliosis type (M41.9)ActiveconfirmedProblemLeukocytosis (338632024) Leukocytosis, unspecified (D72.829)ActiveconfirmedProblemLeft rotator cuff syndrome (217449358003665)Rotator cuff syndrome of left shoulder (M75.102)Active confirmedProblemIntervertebral disc disorder of lumbar region with myelopathy (64281790)Lumbar disc disorder with myelopathy (M51.06)ActiveconfirmedProblem Carotidynia (323858246)Carotidynia (G90.01)ActiveconfirmedProblemHistory of hysterectomy (331796363)S/P hysterectomy (Z90.710)ActiveconfirmedProblemS/P tooth extraction (K08.409)Activeconfirmed Vital Signs Heart Rate 79 /min 09/25/2025 Lyghlxbqyjm00.4 degrees Dbdnqaayrr18/23/2025Respiratory Rate18 /min09/25/2025 Sgmilvth38 %09/25/2025lood pressure rfpfawmir28 mm Hg09/25/20257699Ffevaw33 in 09/25/2025lood pressure quahtrqx136 mm Hg09/25/20258944Viqkrx452 lbs111/26/2024MI 24.46 kg/m209/25/2025 Encounters Encounter Location Date Provider Diagnosis [facility] [address] [place] [address] 10/27/2024 Niki Spasic Nicotine dependence, unspecified, uncomplicated F17.200 and Chronic back pain M54.9 [facility] [address] [place] [address] 01/12/2025 Niki Spasic Nicotine dependence, unspecified, uncomplicated F17.200 [facility] [address] [place] [address] 02/05/2025 [facility] for breast cancer Z12.31 [facility] [address] [place] [address] 02/13/2025 Niki [facility] [place] [address] [facility] [place] [address] 02/21/2025Laura SpasicLower extremity edema R60.0[facility] [place] [address]Laura SpasicLower extremity edema R60.0 and Leukocytosis, unspecified D72.829[facility] [place] [address]/Laura SpasicNicotine dependence, unspecified, uncomplicated F17.200 ; Nonintractable epilepsy without status epilepticus, unspecified epilepsy type G40.909 ; Panic Disorder F41.0 and Lumbar disc disorder with myelopathy M51.[address] [address]/08/2025Laura SpasicNicotine dependence, unspecified, uncomplicated F17.200[facility] [place] [address]/Laura [facility] [address] [place] [address]/[facility] [address] [place] [address]/[facility] [address] [place] [address]/[facility] [address] [place] [address]/Laura Spasic Nicotine dependence, unspecified, uncomplicated F17.200[facility] [address] [place] [address]/[facility] [facility] [place] [address]/Laura [facility] [address] [place] [address]/01/2025[facility] Spasic Nicotine dependence, unspecified, uncomplicated F17.200 and Lumbar disc disorder with myelopathy M51.06[facility] [address] [place] [address]/[facility] [place] [facility] [place] [address]/[facility] [address] [place] [address]/[facility] [address] [place] [address]/[facility] [address] [place] [address]/Laura SpasicNicotine dependence, unspecified, uncomplicated F17.200[facility] [address] [place] [address]/[facility] [facility] [place] [address]/Laura SpasicAcute right otitis media H66.91 ; Nicotine dependence, unspecified, uncomplicated F17.200 and Lumbar disc disorder with myelopathy M51.06[place] [address]/Laura SpasicType 2 diabetes mellitus without complication, without long-term current use of insulin E11.9 ; Nicotine dependence, unspecified, uncomplicated F17.200 ; Nonintractable epilepsy without status epilepticus, unspecified epilepsy type G40.909 ; Lumbar disc disorder with myelopathy M51.06 and Chronic back pain M54.9[place] [address]/Laura SpasicNicotine dependence, unspecified, uncomplicated F17.200 ; Acute diarrhea R19.7 ; Type 2 diabetes rao litus without complication, without long-term current use of insulin E11.9 and S/P tooth ofzdezmkdlC59.409[place] [address]/Laura SpasicNicotine dependence, unspecified, uncomplicated F17.200 ; Urinary retention R33.9 ; Type 2 diabetesmellitus without complication, without long-term current use of insulin E11.9 ; Vitamin D deficiency E55.9 ; Hypercholesterolemia E78.00 ; Lower extremity edema R60.0 ; Lumbar disc disorder with myelopathy M51.06 and Nonintractable epilepsy without status epilepticus, unspecified epilepsy type G40.909[place] [address]/Laura SpasicNicotine dependence, unspecified, uncomplicated F17.200 ; Type 2 diabetes mellitus without complicat ion, without long-term current use of insulin E11.9 ; Nonintractable epilepsy without status epilepticus, unspecified epilepsy type G40.909 ; Medication refill Z76.0 ; Lumbar disc disorder with myelopathy M51.06 ; Osteoarthritis of spine with radiculopathy, cervical region M47.22 and Acute otitis externa of right ear, unspecified type H60.[address] [address]/Laura SpasicRecurrent UTI N39.0 ; Sensation of pressure in bladder area R39.89 ; Microscopic hematuria R31.29 ;Lumbar radiculopathy M54.16 ; Fibromyalgia M79.7 ; S/P tooth extraction K08.409 ; Nicotine dependence, unspecified, uncomplicated F17.200 and Panic Disorder F41.0[facility] [facility] [place] [address]/12/2024Laura SpasicLumbar disc disorder with myelopathy M51.06 and Nonintractable epilepsy without status epilepticus,unspecified epilepsy type G40.909[facility] [place] [address]/[facility] [address] [place] [address]/[facility] [place] [address]/07/2025[facility] [place] [address]/ [facility] [place] [address] 02/20/2025[facility] [place] [address]/[facility] [place] [address]/[facility], unspecified cause, class I K08.101[facility] [place] [address]/[facility] dental procedure status Z98.818[facility] [place] [address] 08/08/2025[facility] Z98.[address] [place], [place] [address] [place] [address]/Yokasta Perera Assessments Encounter Date Diagnosis (ICD Code) Assessment Notes Treatment Notes Treatment Clinical Notes Section Notes 08/01/2025 Other dental procedure status (I CD-10 - Z98.818) 08/08/2025Other dental procedure status (ICD-10 - Z98.818)09/06/2025Nicotine dependence, unspecified, uncomplicated (ICD-10 - F17.200)06/14/2025Nicotine dependence, unspecified, uncomplicated (ICD-10 - F17.200)07/25/2025omplete loss of teeth, unspecified cause, class I (ICD-10 - K08.101)07/27/2025Nicotine dependence, unspecified, uncomplicated (ICD-10 - F17.200)09/25/2025Nicotine dependence, unspecified, uncomplicated (ICD-10 - F17.200)smoking cessation discussed. Pt verbalized understanding to complication of tobacco use including cardiac and pulmonary disease, as well as stroke. Pt declines interest in this time.05/31/2025Type 2 diabetes mellitus without complication, without long-term current use of insulin (ICD-10 - E11.9)AIC is below goal of 7.0. Continue same medications as prescribed. Labs ordered to review renal function. Urine for microalbumin within the year. Continue home monitoring of blood sugars; if <70 or >450 go to the ER. Pt enc to have annual eye exams as well as enc to not cut toe nails, routinefoot care and checks with podiatry, if you develop any sores/concern RTO. F/U 3 mpxtgf0506/01/2025Nicotine dependence, unspecified, uncomplicated (ICD-10 - F17.200)09/25/2025Type 2 diabetes mellitus without complication, without long-term current use of insulin (ICD-10 - E11.9) Diabetes management ongoing. Patient is due for A1C test. Recent blood work performed at [facility].Patient takes Metformin and Trulicity. - Order Hemoglobin A1C for diabetes management. 10/27/2024Nicotine dependence, unspecified, uncomplicated (ICD-10 - F17.200) 5Chronic back pain (ICD-10 - M54.9)02/21/2025Lower extremity edema (ICD-10 - R60.0)07/29/2025Nicotine dependence, unspecified, uncomplicated (ICD- 10 - F17.200)5Acute right otitis media (ICD-10 - H66.91)You have an inner ear infection, will prescribe an antifungal, looks like yeast, take until gone and with food. Side effects discussed, if you develop worsening symptoms, fever, loss of hearing RTO.10/19/2024Nicotine dependence, unspecified, uncomplicated (ICD-10 - F17.200)smoking cessation discussed. Pt verbalized understanding to complication of tobacco use including cardiac and pulmonary disease, as well as stroke. 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 will treat with flagyl. . Enc hydration, if unable to keep up with fluids, have NV go to the ER. Will prescribe a medication for abd cramping, take as prescribed. RTO if not improvement in 3-5 days.01/12/2025Nicotine dependence, unspecified, uncomplicated (ICD-10 - F17.200)01/30/2025Recurrent UTI (ICD-10 - N39.0)will recheck urine culture and treat accordingly, pt has bladder spasms, will start oxybutrin for spasm and get updated US to further eval. Has seen urology in the past and had urethral stricture.01/30/2025 Sensation of pressure in bladder area (ICD-10 - R39.89)see above02/05/2025 Screening mammogram for breast cancer (ICD-10 - Z12.31)02/20/2025Nicotine dependence, unspecified, uncomplicated (ICD-10 - F17.200)smoking cessation discussed. Pt verbalized understanding to complication of tobacco use including cardiac and pulmonary disease, as well as stroke. Pt declines interest in this time.02/20/2025Urinary retention (ICD-10 - R33.9)enc to schedule her US, referral to urology for further evaluation, reports the lasix relaxes the bl adder, will dose prn for swelling. Advised to take in the am as increase urination will occur. Willget ER report to review, repeat urine testing today. continue oxybutrin for bladder spasms. Pt agree with POC02/22/2025Lower extremity edema (ICD-10 - R60.0)02/22/2025Leukocytosis, unspecified (ICD-10 - D72.829)03/06/2025Nonintractable epilepsy without status epilepticus, unspecified epilepsy type (ICD-10 - G40.909)pending referral with neurology. continue medication if you have a seizure pt to go to ER03/06/2025Lumbar disc disorder with myelopathy (ICD-10 - M51.06)pt needs to go see surgeon pending referrals, continues conservative treatment, enc to f/u with pain management. You are being prescribed a control substance. [...] misuse or abuse is noted. Pt verbalizes understanding.05/31/2025Nicotine dependence, unspecified, uncomplicated (ICD-10 - F17.200)smoking cessation discussed. Pt verbalized understanding to complication of tobacco use including cardiac and pulmonary disease, as well as stroke. Pt declines interest in this time. 02/20/2025Type 2 diabetes mellitus without complication, without long-term current use of insulin (ICD-10 - E11.9)AIC goal of 7.0. Continue same medications as prescribed. Labs ordered to review renal function. Urine for microalbumin within the year. Continue home monitoring of blood sugars; if <70 or >450go to the ER. Pt enc to have annual eye exams as well as enc to not cut toe nails, routine foot care and checks with podiatry, if you develop any sores/concern RTO. F/U 3 zmswfd6505/31/2025Nonintractable epilepsy without status epilepticus, unspecified epilepsy type (ICD-10 - G40.909)no following with neurology, pt to f/u as recommended, no reported seizure zlvesrnu45/29/2025 Microscopic hematuria (ICD-10 - R31.29)10/19/2024Type 2 diabetes mellitus without complication, without long-term [...] as enc to not cut toe nails, routinefoot care and checks with podiatry, if you develop any sores/concern RTO. F/U 3 juxjbb2109/25/2025 Nonintractable epilepsy without status epilepticus, unspecified epilepsy type (ICD-10 - G40.909)Neurologist changed Depakote dosing. Patient takes Depakote 250 mg three times a day and 500 mg twice a day. pt to f/u with neurology as ecowqusp94/21/2025Nicotine dependence, unspecified, uncomplicated (ICD-10 - F17.200)smoking cessation discussed. Pt verbalized understanding to complication of tobacco use including cardiac and pulmonary disease, as well as stroke. Pt declines interest in this time.06/01/2025Nonintractable epilepsy without status epilepticus, unspecified epilepsy type (ICD-10 - G40.909)09/06/2025Lumbar disc disorder with myelopathy (ICD-10 - M51.06)06/01/2025Panic Disorder (ICD-10 - F41.0)01/30/2025Lumbar radiculopathy (ICD-10 - M54.16)Pt with chronic pain. appropriate referrals and treatments have been completed by specialist w/o sig nificant improvement in pain. Not a surgical candidate. [...] is needed, will discuss referral at that time.09/25/2025Lumbar disc disorder with myelopathy (ICD-10 - M51.06)patient with increasing weakness. Despite completing PT, continuing home exercises, and injections with temporary relief, she takes antiinflammatories, muscle relaxers as well as pain medication. Sheuses pain cream, compounding from [facility] and needs a refill. With worsening symptoms, pt will need an updated MRI, will get this ordered. Any loss of bowel or bladder, pt needs to go to the ER07/24/2025Lumbar disc disorder with myelopathy (ICD-10 - M51.06)Pt with chronic pain. appropriate referrals and treatments [...] is needed, will discuss referral at that time.10/19/2024S/P tooth extraction (ICD-10 - K08.409)You are being prescribed a control substance. These [...] No misuse or abuse is noted. Pt v nirajalizes understanding.02/20/2025Vitamin D deficiency (ICD-10 - E55.9)Will check Vit D level, continue Vitamin D replacement as advised. Discussed diet high in Vit D, also 10-15 minutes of direct sunlight is the best source of Vit D.05/31/2025Medication refill (ICD-10 - Z76.0)pt requested medication refills today, refills sent per ynlpvbj4302/20/2025Hypercholesterolemia (ICD-10 - E78.00) lipid panel every 3-6 months with CMP to monitor liver and renal function, adjust medications accordingly. Discussed a low chol diet. Enc moderate daily exercise. If you develop any muscle cramping, leg cramps/pain, intolerance to medication please RTO.01/30/2025Fibromyalgia (ICD-10 - M79.7)Chronic pain, continue medications, monitor for acute changes in pain and RTO for new symptoms for severe pain, go to the ER for optimal pain management.05/31/2025Lumbar disc disorder with myelopathy (ICD-10 - M51.06)Pt with chronic pain. appropriate referrals and treatments [...] is needed, will discuss referral at that time.06/01/2025Lumbar disc disorder with myelopathy (ICD-10 - M51.06)09/25/2025 Chronic back pain (ICD-10 - M54.9) Worsening pain in back and legs with increasing weakness. Prior injections did not help and worsened leg symptoms. Surgeon determined patient was not a surgical candidate. MRI needed to clarify causeand guide further management. Physical therapy performed at home. - Order MRI of the lumbar spine for evaluation of worsening back pain and leg weakness. 01/30/2025S/P tooth extraction (ICD-10 - K08.409)fjpzgf3902/20/2025Lower extremity edema (ICD-10 - R60.0)evaluated in the ER, given diuretic in Er, will get US to r/o DVT although unlikely since b/l and not unilateral She agrees with POC Pending bladder and renal US.05/31/2025Osteoarthritis of spine with radiculopathy, cervical region (ICD-10 - M47.22)see above02/20/2025Lumbar disc disorder with myelopathy (ICD-10 - M51.06)referral to neuro surgeon to further evaluate the [...] will be used for a short period atime. Refills will be determined based on symptoms. Do not mix these medications with alcohol, do not share these medications, do not sell these medication, do not drive or operate heavy machinery while taking these medications. OARRS report was reviewed. No misuse or abuse is noted. Pt verbalizes understanding. pt is on mobic daily, uses oral keterolac PRN and knows she cannot take the meloxicamand tordol together. 01/30/2025Nicotine dependence, unspecified, uncomplicated (ICD-10 - F17.200) smoking cessation discussed. Pt verbalized understanding to complication of tobacco use including cardiac and pulmonary disease, as well as stroke. Pt declines interest in this time.5Acute otitis externa of right ear, unspecified type (ICD-10 - H60.501)on antibiotics from UC visit, continue to gone, canal is infected, will order drops insert as directed and use until gone. pt vu in POC<01/30/2025Panic Disorder (ICD-10 - F41.0)Pt with panic disorder, stable on maintenance medications, [...] her last medication refill was a year ago.02/20/2025Nonintractable epilepsy without status epilepticus, unspecified epilepsy type (ICD-10 - G40.909)pt reports seizure in years. dilantin level stable, was evaluated in ER. Will re-refer to neurologyfor further treatment.01/30/2025OtherBody Mass Index: Care Instructions material was published, Body Mass Index: Care Instructions material was printed 05/31/2025OtherBody Mass Index: Care Instructions material was published, Body Mass Index: Care Instructions material was printed Plan Of Treatment Pending Test Test Name Order Date colonoscopy 03/16/2024 colonoscopy 09/05/2024 Microalbumin, Urine (Random) 05/31/2025 T-Cell Gene Rearrangement, PCR 5 MM diagnostic mammo LT w/CAD 08/22/2024 MR lumbar spine wo con 09/25/2025 US bladder 01/30/2025 US carotid doppler LT 07/11/2024 Next Appt Details Provider Name:Niki Gentile, 12/25/2025 09:30:00 AM, [address] [facility], [facility], [place], [address], Insurance Providers Payer Name Payer Address Payer Phone Subscriber Number Group Number Insured Name Patient Relationship to Insured Coverage Start Date Coverage End Date [employer] [place] Medicaid [address] [place] [address] [id number] Girish ZUÑIGA - patient is the iokhogy0211/04/2022Wrap [facility] CareSourcePO [address] [place] [id number], JAMIESelf - patient is the zqqeyad0811/04/2022z[employer]-termed 11/03/22[address] [place] [id number], JAMIESelf - patient is the insured zMEDICAID [facility] after [employer]termed 11/03/22[address] [place] [id number], JAMIESelf - patient is the [id number] [employer]-termed 11/03/22[address] [place] [id number], JAMIESelf - patient is the [id number] MEDICAID [employer] after [employer]- termed 11/03/22[address] [place] [id number] Girish ZUÑIGA - patient is the [id number] [employer] [place] MedicaidPO [address] [place] [id number], JAMIE Self - patient is the kdkdxtt7811/04/2022[facility] [address] [place] [phone], JAMIESelf - patient is the rsbxzll6511/04/2022[facility] [address] [place] [address] [phone], JAMIESelf - patient is the lrnmybe5304/12/2024 [facility] [address] [place] [id number], JAMIESelf - patient is the kgjwtyj5304/12/2024[facility] [address] [place] [id number], JAMIESelf - patient is the [id number] Medications Administered Medication Instructions Date of Administration Dosage Notes Ketorolac Tromethamine mgKetorolac Rsxoxgzpdady50/28/202530 mgKetorolac Tromethamine mgKetorolac Kghoykuglpzy26/23/202530 mgKetorolac Tromethamine rdPLQHUXG33/05/20192 vMVNTQYUU56/10/391382 jzHGQEIMZ65/03/231325 mg PBQJUDB50 aLORINDWM91/19/849353 vqOIDBRVQ75/20/570105 mLTORADOL atHZVNLXM21/23/144460 jwKDOOMWF78/16/491178 vhCWBZWZQ10/13/915549 pvIFTSUBE64/17/389571 atXVJVCBK83/19/595027 ubLUPFPRJ78/16/420901 mgTORADOL jZQLKECLP31/24/20211 nJOFQTAQP91/12/20212 jEHBARHGF96/07/20222 mL FCTTZRD51 cEMTNUOTY13/09/20232 mL Medical (General) History Medical History History ICD Code seizures hx/o cervical cancerFibromyalgiaIBSLEVEL 3undefinedSurgical History Surgery Date(Month/Year) gall bladder removed 1998 appendectomy 2001 right knee ligament repair as child 03/04 990 tooth pulled 2019 hysterectomy, total with bilateral salpi mast-oopherectomy (BSO) 09/28/2023 Hospitalization History Reason Date(Month/Year) HIGH BS 02/2023 [facility] - Ear infection HTN IBS; C DIFF 10/2023
--- OUTSIDE RECORDS SUMMARY | 2025-09-30 19:21 | XMS_ITS | Clinical Summary ---
Author Organization [facility] Address [address] [place] [address] Care Team Providers Care Boiler House Supervisor Name Role Phone Julio Borja MD Primary Care Provider [phone] Allergies Active AllergyReactionsCriticalityNoted DxqzEzhpbadsDmrjvdmjdoabt40/11/2023 Other Reaction(s): Unknown Latex06/14/2023 Other Reaction(s): Unknown Sulfamethoxazole-Ncenpwbiecvv44/11/2023 Other Reaction(s): Unknown Troszpvp44/11/2023 Other Reaction(s): Unknown Medications MedicationSigDispense QuantityRefillsLast FilledStart DateEnd DateStatus tiZANidine (Zanaflex) 4 MG tablet Take 4 mg by mouth every 8 (eight) hours if needed for muscle spasms.05/29/2023 Active simvastatin (Zocor) 20 MG tablet Take 20 mg by mouth at bedtime.05/29/2023ctive sertraline (Zoloft) 100 MG tablet Take 100 mg by mouth in the morning.Active metFORMIN (Glucophage) 500 MG tablet Take 500 mg by mouth in the morning and 500 mg in the evening. Take with meals. 04/08/2023ctive meloxicam (Mobic) 15 MG tablet Take 15 mg by mouth in the morning.Active Melatonin 10 MG capsule as directed OrallyActive Lancets (onetouch ultrasoft) lancets 1 each by Other route if needed.02/12/2023ctive ketorolac (Toradol) 10 MG tablet Take 10 mg by mouth every 6 (six) hours if needed.Active OneTouch Ultra test strip 1 each by Other route if needed.02/12/2023ctive gabapentin (Neurontin) 800 MG tablet Take 800 mg by mouth in the morning and 800 mg in the evening and 800 mg before bedtime.Active Ferrous Sulfate (iron) 325 (65 Fe) MG tablet 04/22/2023ctive ergocalciferol (Vitamin D2) 1.25 MG (83779 UT) capsule Take 50,000 Units by mouth 1 (one) time per week.05/17/2023ctive Trulicity 1.5 MG/0.5ML solution pen-injector Inject 1.5 mg under the skin 1 (one) time per week.04/19/2023ctive doxazosin (Cardura) 2 MG tablet Take 2 mg by mouth at bedtime.Active divalproex (Depakote ER) 500 MG 24 hr tablet Take 500 mg by mouth in the morning.04/22/2023ctive Depakote 250 MG EC tablet Take 250 mg by mouth 1 time.Active Diclofenac Sodium powder 04/15/2023ctive diazePAM (Valium) 5 MG tablet Take 5 mg by mouth every 8 (eight) hours.05/17/2023ctive Vraylar 1.5 MG capsule 05/29/2023ctive Blood Glucose Monitoring Suppl (ONE TOUCH ULTRA 2) w/Device kit 02/12/2023ctive acetaminophen (Tylenol) 325 MG tablet Take 325 mg by mouth every 8 (eight) hours if needed.04/22/2023ctive vancomycin (Vancocin) 125 MG capsule Take 125 mg by mouth in the morning and 125 mg at noon and 125 mg in the evening and 125 mg before bedtime.10/09/2023ctive Family History Medical HistoryRelationNameCommentsBrain cancerMaternal GrandfatherBasil Orlin's CancerMaternal GrandfatherBasil Orlin'sHeart failureMaternal GrandfatherBasil Orlin'sBreast cancerMaternal GrandmotherMazaley Orlin'sCancerMaternal GrandmotherMazaley Orlin'sColon cancerMaternal GrandmotherMazaley Orlin'sOvarian cancerMaternal GrandmotherMazaley Orlin'sRheum arthritisMaternal Grandmother Mazaley Orlin'sCancerMotherKaren StoutOvarian cancerMotherKaren StoutThyroid diseaseMotherKaren StoutUterine cancerMotherKaren StoutBreast cancerMother's SisterDebbie DeanOvarian cancerMother's SisterDebbie DeanThyroid diseaseMother's SisterDebbie DeanBrain cancerPaternal GrandfatherCervical cancerSiblingColon cancerSiblingOvarian cancerSiblingUterine cancerSiblingCancerSisterMelissa DtpqdezYwvpxnvmBvaoOacfbbYrjltrdkKrmyrpjm8JjrixwHaxwptebWvmvuuya Grandfather Amando JimenezsMaternal GrandmotherMazaconnor Ordaz'sMotherKaren StoutAliveMother's SisterDebbie DeanPaternal GrandfatherSiblingSisterMelissa WodrichSonx2 Social History Tobacco UseTypesPacks/DayYears UsedDateSmoking Tobacco: Every DayCigarettes0.535 Smokeless Tobacco: Never Tobacco Cessation:Ready to Q uit: Not Asked; Counseling Given: Not Answered Comments:> Smokes first cigarette 6-30 minutes after waking up. Alcohol UseStandard Drinks/WeekCommentsNot Currently0 (1 standard drink = 0.6 oz pure alcohol)caffeine intake: 1-2 cups per day coffeeAUDIT-CAnswerDate Recorded Q1: How often do you have a drink containing alcohol?Monthly or less06/14/2023 Q2: How many drinks containing alcohol do you have on a typical day when you are drinking?1 or Q3: How often do you have six or more drinks on one occasion?Never3PHQ-2AnswerDate RecordedPatient Health Questionnaire-2 [id number] and Gender InformationValueDate Recorded Sex Assigned at BirthNot on fileLegal GllQwgwru26/15/2023 7:01 PM EDTGender IdentityNot on fileSexual OrientationNot on file Last Filed Vital Signs Vital SignReadingTime TakenCommentsBlood Vzmrloub383/70010/20/2023 11:55 AM EST Pulse--Temperature--Respiratory Rate--Oxygen Saturation--Inhaled Oxygen Concentration--Oeinko58.4 kg (164 lb)10/20/2023 11:55 AM URGFdcimx551.4 cm (5' 5.5 )10/20/2023 11:55 AM ESTBody Mass Index26.8801/ 11:55 AM EST Plan of Treatment Not on file Insurance Care Teams Team MemberRelationshipSpecialtyStart DateEnd Date Julio Borja MD [address] [place] [id number] PCP - GeneralFamily Medicine06/14/23
--- OUTSIDE RECORDS SUMMARY | 2025-09-30 19:22 | XMS_ITS | CCD ---
Author Organization [facility] Care Team Providers Care Spot Billing Clerk Name Role Phone Piero Pettita Cat Primary Care Provider Piero Pettita E Attending Provider [phone] [facility] Primary Care Provider [facility] Primary Care Provider Piero Pettita E Attending Provider [phone] Kyler Miramontes Unavailable Girish Callaway Unavailable [facility] Primary Care Prov ider CHRISTINA Bergeron Emergency Provider [phone] OLEG Pettit Attending Provider DO Rod Alvarado Emergency Provider MD Jasmin Velázquez Attending Provider [facility] Primary Care Provider MD Jasmin Velázquez Attending Provider [phone] [facility] Primary Care Provider AJIT PETTIT Primary Care Physician [phone] [facility] Primary Care Prov ider MD Kyler Miramontes Attending Provider [phone] OLEG Pettit Attending Provider [facility] Primary Care Prov ider MD Kyler Miramontes Attending Provider OLEG Pettit Attending Provider MARKER ., DR SEPULVEDA Consulting [...] Care Provider UnavailMD Kyler Pulido Attending Provider [phone] [facility], . Primary Care Provider Spasic, NITRATE OPERATOR-C Ajit E Primary Care Provider Spasic, NITRATE OPERATOR-C Ajit E Attending Provider [facility] Primary Care Prov ider Visci, DO Ferguson Attending Provider Spasic, NITRATE OPERATOR-C Ajit E Primary Care Provider [phone] Visci, DO Carri Attending Provider Spasic, NITRATE OPERATOR-C Ajit E Primary Care Provider [phone] Visci, DO Carri Attending Provider MD Beltran Velez Admit Provider [phone] JULIANA Calderon Other Provider Unavailable JULIANA Danielle Other Provider Unavailable JULIANA Brar Other Provider Unavailable JULIANA Flor Other Provider Unavailable JULIANA Manzano Other Provider Unavailable JULIANA Sun Other Provider Unavailable Adal, CONSUMER INSIGHTS SPECIALISTHuong Ramirez Other Provider [phone] DO Evan Jackson Other Provider MD Familia Blair Other Provider DO Brandon Dowling Other Provider [phone] MD Florin Cruz Other Provider MD Vivi Holloway Other Provider CHRISTINA Lopez Other Provider [phone] MD Lilly Alexandre Other Provider MD Rangel [...] Provider DO Lazaro Dunne M Other Provider CHRISTIAN Nava Other Provider DO Salazar Cabrera Attending [...] Emergency Provider CARRI MANUEL Attending Unavailable Spasic, NITRATE OPERATOR-C Ajit E Attending Provider Spasic, NITRATE OPERATOR-C Ajit E Attending Provider Spasic, NITRATE OPERATOR-C Ajit E Primary Care Provider MD Kyler Miramontes Attending Provider DO Abi Sunshine Attending Provider [phone] Spasic, NITRATE OPERATOR-C Ajit E Primary Care Provider Spasic, NITRATE OPERATOR-C Ajit E Attending Provider Spasic, NITRATE OPERATOR-C Ajit E Primary Care Provider Spasic, NITRATE OPERATOR-C Ajit E Primary Care Provider Ambrose Cedeño Attending Unavailable EVELYN Ferrari Emergency Provider Spasic NITRATE OPERATOR-C, Ajit E Primary Care Provider Praveen Rivero DO Attending Provider Laura Marte Attending Unavailable Ambrsoe Cedeño Attending Unavailable Anisa Chong DO Attending Provider Spasic NITRATE OPERATOR-C, Ajit E Attending Provider Praveen Bermudez DO Attending Provider NON STAFF Attending Provider Unavailable Spasic NITRATE OPERATOR-C, Ajit E Referring Provider Chilo NITRATE OPERATOR-C, Jane E Attending Provider Spasic NITRATE OPERATOR-C, Ajit E Referring Provider Terence BALDERAS, Enrique Ballard Attending Provider Cb Raines MD Attending Provider Chilo NITRATE OPERATOR-C, Jane E Attending Provider Leodan Patricia MD Attending Provider [phone] Enrique Pratt MD Referring Provider Spasic NITRATE OPERATOR-C, Ajit E Primary Care Provider [phone] Chilo NITRATE OPERATOR-C, Jane Cat Attending Provider Christian Rodriguez DO Attending Provider Chilo NITRATE OPERATOR-C, Jane E Attending Provider Spasic NITRATE OPERATOR-C, Ajit E Attending Provider Spasic NITRATE OPERATOR-C, Ajit E Primary Care Provider Mony Lepe DO Attending Provider Spasic NITRATE OPERATOR-C, Ajit E Primary Care Provider Terence BALDERAS, Enrique Ballard Attending Provider [phone] Spasic NITRATE OPERATOR-C, Ajit E Referring Provider Kyler Miramontes MD Attending Provider [phone] Spasic NITRATE OPERATOR-C, Ajit E Primary Care Provider [phone] Joshua PRESTON Attending Unavailable Laura Marte Attending Unavailable Joshua PRESTON Attending Unavailable SPASIC, AJIT E Referring Unavailable Deepika Salazar Attending Unavailable Ruth Thompson Attending Unav ailable Spasic NITRATE OPERATOR-C, Ajit E Primary Care Provider [phone] Enrique Pratt MD Attending Provider Jane Woo Attending Unavailable Spasic, Ajit E Primary Care Unavailable Jane Woo Admitting Unavailable Spasic, Ajit Cat Referring Unavailable Spasic, Ajit E Primary Care Unavailable Spasic, Ajit E Attending Unavailable Spasic, Ajit E Admitting Unavailable Spasic, Ajit E Primary Care Unavailable Leodan Patricia Admitting Unavailable Leodan Patricia Attending Unavailable Kyler Miramontes Admitting Unavailable Kyler Miramontes [...] E Attending Unavailable Kyler Miramontes Admitting Unavailable FeKyler rodriguez Attending Unavailable Spasic, Ajit E Primary Care Unavailable Spasic, Ajit E Primary Care Unavailable Ly, Abi L Admitting Unavailable Ly, Abi L Attending Unavailable NON STAFF Attending Unavailable NON STAFF Admitting Unavailable Spasic, Ajit E Primary Care Unavailable Katko, Praveen D Admitting Unavailable KatkoPraveen D Attending Unavailable Spasic, Ajit E Primary Care Unavailable Marker, Anisa Abdi Admitting Unavailable Marker, Anisa Abdi Attending Unavailable Pay, Praveen Admitting Unavailable Pay, Praveen Attending Unavailable Spasic, Ajit E Admitting Unavailable Spasic, Ajit E Attending Unavailable Fe BALDERAS, Kyler Gonzalez Other Provider Spasic NITRATE OPERATOR-C, Ajit E Primary Care Provider [phone] Jareth CONSUMER INSIGHTS SPECIALIST-PRODUCTION SUPV-C, Aleena Shelton Attending Provider Spasic NITRATE OPERATOR-C, Ajit E Primary Care Provider [phone] Mony Lepe DO Attending Provider Kyler Miramontes MD Attending Provider Kyler Miramontes MD Other Provider Jareth CONSUMER INSIGHTS SPECIALIST-PRODUCTION SUPV-CAleena Attending Provider Christian Rodriguez DO Attending Provider Unavailable Unavailable Unavailable Allergies Allergy ClassificationReported Allergen(s)Allergy TypeDate of OnsetReaction(s) FacilityOpioid Agonists (1 source)traMADolDrug Apvgbey65-47-6651YujfprlAzhkfruoo [facility] Serotonin Reuptake Inhibitors (SSRIs) (1 source)EscitalopramDrug Rjjdkpi52-65-5023Jzkdwuaodu BreathingNorwalk [facility]tr (20 sources)Escitalopram; Translations: [escitalopram]Drug Yelotpk13-29-6157 [facility]As[facility] (20 sources)traMADol; Translations: [tramadol]Drug Hsltwru66-41-2846Gevkmlv, Unknown, [facility] (20 sources)Amitriptyline; Translations: [Amitriptyline]Drug Mwutiev31-55-6200 [facility] (20 sources)natural latex rubber; Translations: [Latex, Natural Rubber]Allergy to -25-5008Bdqnewf Reaction, [facility] (20 sources)Sulfamethoxazole; Translations: [sulfamethoxazole]Drug Allergy 07-77-0569IxsmlfvCovotezkzParma [facility] (20 sources)Trimethoprim; Translations: [trimethoprim]Drug Sdxviiy52-09-5732 [facility] (14 sources)Latex; Translations: [latex]Drug allergyWeal (disorder)[facility] (13 sources)Sulfamethoxazole / Trimethoprim; Translations: [sulfamethoxazole-trimethoprim]Drug AllergyUnknown (qualifier value)[facility] (1 source)Sulfamethoxazole / TrimethoprimDrug AllergyThe [facility] (1 source)Ultra Juancarlos GoldDrug allergy (disorder)[facility] (20 sources)nonoxynol 9; Translations: [nonoxynol 9]Allergy to substance 05-86-1166NexpdJuulxikpnProMedica [facility] (5 sources)traMADol; Translations: [Ultram]Drug AllergyCommunity [facility] Medications Current Medications MedicationDrug Class(es)DatesSig (Normalized)Sig (Original)Tylenol (20 sources)Start: 83-48-1096Azccswm Oral, Refills(s) 0 Start Date: 07/31/22 Status: Ordered Repeat number: 1Start: 64-03-6304Yntifwc Oral, Refills(s) 0 Start Date: 07/31/22 Status: OrderedStart: 72-01-8766luqm 1 capsule by mouth twice dailyStart: 90-82-6261Onbvcrllthbyl (Tylenol) 325 mg Capsule Active 1000 MG PO Twice daily March 04, 2022 12:00amStart: 80-99-6112xgwrzkdzpdoon Refills(s) 0 Start Date: 10/27/19 Status: Ordered Repeat number: 1Start: 53-00-4574sqiswvzvzsftp Refills(s) 0 Start Date: 10/27/19 Status: OrderedStart: 06-15-2017 End: 93-56-2916yivq 2 tablets by mouth every six hours as needed for pain Acetaminophen (Tylenol Extra Strength) 500 mg Tablet Discontinued 1000 MG PO Q6H as needed for PainSeptember 2016 11:00pm April 24, 2018 7:47pmtake 1 tablet by mouth every four hoursTylenol 325 MG 1 tablet as needed Orally every 4 hrs PRN ActiveAtogepant (2 sources)Start: 70-03-9494kiwn 1 tablet by mouth once dailyStart: 08-01-2025 take 1 tablet by mouth once dailyAtogepant (Qulipta) 30 mg tablet Active 30 MG PO Daily August 01, 2025 12:00am Chronic migraine without aura without status migrainosus, not intractable Chronic migraine without aura, not i ntractable, without status migrainosus Complies with drug therapycariprazine 1.5 mg oral capsule (20 sources)Atypical AntipsychoticStart: 94-15-8888fpfu 1 capsule by mouth once dailyVraylar 1.5 mg oral capsule 1.5 mg = 1 cap(s), Oral, Daily Start Date: 05/29/25 Status: Ordered Repeat number: 1Start: 06-30-2023 End: 31-98-4671okxi 1 capsule by mouth once daily in the morningCariprazine (Vraylar) 1.5 mg capsule Discontinued 1.5 MG PO Every morning June 29, 2023 11:00pm March 14, 2025 7:54am anxiety, seizuresciprofloxacin 500 mg oral tablet (20 sources)Quinolone AntimicrobialStart: 01-24-2025 End: 08-68-4375ysxh 1 tablet by mouth every twelve hoursCipro 500 mg Tab 500 mg = 1 tab(s), Oral, q12hr, X 3 day(s), # 6 tab(s), Refills(s) 0, Pharmacy: [facility] /pharmacy #[id number], 165, cm, 01/24/25 11:37:00 EDT, Height/Length Dosing, 70.1, kg, 01/24/25 11:37:00 EDT, Weight Dosing Start Date: 01/24/25 Stop Date: 01/27/25 Status: Ordered Quantity: 6.0 Unit: tab(s)Repeat number: 1Start: 09-29-2018 End: 63-71-3333hwnx 1 tablet by mouth twice dailyCiprofloxacin Hcl 500 mg tablet Discontinued 500 MG PO Twice daily 20 September 29, 2018 12:00amJune 2021 7:36amdiazePAM 10 mg oral tablet (20 sources)BenzodiazepineStart: 56-57-9729ijpf 1 tablet by mouth three times daily as needed for anxietyValium 10 mg Tab 10 mg = 1 tab(s), Oral, TID, PRN for anxiety Start Date: 05/29/25 Status: Ordered Repeat number: 1Start: 07-31-2022 take 1 mg by mouth every eight hoursValium 5 mg Tab mg tab(s), Oral, q8hr, Refills(s) 0 Start Date: 07/31/22 Status: Ordered Repeat number: 1Start: 17-11-9090qbam 2 tablets by mouth once daily at bedtimeStart: 06-47-9951qfxe 1 tablet by mouth twice dailydicyclomine hydrochloride 10 mg oral capsule (20 sources)AnticholinergicStart: 00-14-0647girf 1 capsule by mouth twice daily as neededStart: 10-09-2023 End: 46-42-3010vpds 1 capsule by mouth once daily as neededDicyclomine 10 mg Capsule Discontinued 10 MG PO Twice daily as needed for IBS 1 0 October 0941:16pm March 02, 2024 9:53am take 3x daily for the next several daysStart: 10-09-2023 End: 82-52-4228voet 1 capsule by mouth three times dailyDicyclomine 10 mg Capsule Discontinued 10 MG PO Three times daily 0 October 09, 2023 12:00am 2023 8:59amStart: 06-30-2023 End: 15-07-6478dxjw 1 capsule by mouth twice daily as neededDicyclomine 10 mg Capsule Discontinued 10 MG PO Twice daily as needed for IBS June 29, 2023 11:00pm October 09, 2023 1:17pmStart: 21-39-1526wlgg 10 mg by mouth once daily Dicyclomine Active 10 MG PO Daily June 30, 2023 12:00amtake 2 capsules by mouth every eight hoursDicyclomine HCl 10 MG 2 capsules Orally Three times a day uses as needed for IBS Activedoxazosin 2 mg oral tablet (20 sources)alpha-Adrenergic BlockerStart: 06-18-2025 End: 14-50-1464vphi 1 tablet by mouth once dailyStart: 11-02-2022 End: 64-19-7000qzvf 1 tablet by mouth once daily at bedtimeDoxazosin (Cardura) 2 mg tablet Discontinued 2 MG PO Daily at bedtime November 18, 2022 12:00am Ju 2024 12:59pm bladder spasms0.5 ML dulaglutide 6 MG/ML Auto-Injector [Trulicity] (20 sources)GLP-1 Receptor AgonistStart: 58-54-1863kxtzwn 3 mg by subcutaneous injection every weekTrulicity Pen 3 mg/0.5 mL subcutaneous solution 3 mg, SubCutaneous, qWeek Start Date: 05/29/25 Status: Ordered Repeat number: 1Start: 14-21-1719Gynjr: 37-69-0349Xikum: 04-14-2023 End: 22-79-4156Aqbpgkbihwy (Trulicity) 1.5 mg/0.5 mL pen injector Discontinued 1.5 MG SUBCUT every week April 11:00pm March 13, 2025 7:36am Wednesday Trulicity Activeergocalciferol 1.25 mg oral capsule (20 sources)Provitamin D2 CompoundStart: 64-56-4733Twlxs: 51-23-2810cmsz 85792 [IU] by mouth every weekErgocalciferol (Vitamin D2) Active 04149 UNIT PO every week June 30, 2023 12:00am sferrous sulfate 325 mg oral tablet (20 sources)Start: 68-12-2563zubr 1 tablet by mouth once dailyStart: 05-18-2022 End: 02-29-1258bnzo 1 tablet by mouth once daily in the morningFerrous Sulfate (Iron) 325 mg (65 mg iron) Tablet Discontinued 325 MG PO Every morning May 11:00pm September 28, 2023 8:57amStart: 56-63-6487miwb 1 tablet by mouth once dailyFerrous Sulfate (Iron) 325 mg (65 mg iron) Tablet Active 325 MG PO Daily May 18, 2022 12:00amStart: 49-26-1888odyy 1 tablet by mouth once dailyFerrous Sulfate (Iron) 325 mg (65 mg iron) Tablet Active 325 MG PO Daily May 18, 2022 12:00amStart: 66-60-6875vbyg 1 tablet by mouth once daily Ferrous Sulfate (Iron) 325 mg (65 mg iron) Tablet Active 325 MG PO Daily May 18, 2022 12:00amStart: 09-62-6457dhjj 1 tablet by mouth once dailyFerrous Sulfate (Iron) 325 mg (65 mg iron) Tablet Active 325 MG PO Daily May 18, 2022 12:00amStart: 99-18-4505pury 1 tablet by mouth once dailyFerrous Sulfate (Iron) 325 mg (65 mg iron) Tablet Active 325 MG PO Daily May 18, 2022 12:00amfluconazole 150 mg oral tablet (3 sources)Azole AntifungalStart: 74-18-9203Czqdeidc 150 mg Tab 150 mg = 1 tab(s), Oral, q7day, take on 01/31/2025, # 2 tab(s), Refills(s) 0, Pharmacy: [facility]/pharmacy #[id number], 165, cm, 01/24/25 11:37:00 EDT, Height/Length Dosing, 70.1, kg, 01/24/2511:37:00 EDT, Weight Dosing Start Date: 01/24/25 Status: Ordered Quantity: 2.0 Unit: tab(s) Repeat number: 1gabapentin 600 mg oral tablet (20 sources)Anti-epileptic AgentStart: 65-95-5426Xoame: 82-99-1413katw 1 mg by mouth three times dailygabapentin 800 mg Tab mg tab(s), Oral, TID, Refills(s) 0 Start Date: 07/31/22 Status: Ordered Repeat number: 1Start: 44-82-2712msmo 1 mg by mouth three times dailygabapentin 600 mg Tab mg tab(s), Oral, TID, Refills(s) 0 Start Date: 10/27/19 Status: Ordered Repeatnumber: 1Start: 06-08-2017 End: 61-92-7135Rcyuvihhfc 600 mg Tablet Discontinued 800 MG PO Four times daily June 07, 2017 11:00pm March 14, 2025 7:56amStart: 56-71-0308scdn 800 mg by mouth four times dailyGabapentin Active 800 MG PO Four times daily June 08, 2017 12:00amStart: 29-99-4613eqrf 800 mg by mouth three times daily Gabapentin Active 800 MG PO Three times daily June 08, 2017 12:00amIron 100 Plus (1 source)Start: 98-17-3149Nqvj 100 Plus Oral, Daily, Refill(s) 0 Start Date: 06/25/25 Status: Ordered Repeat number: 1LORazepam 0.5 mg oral tablet (20 sources)BenzodiazepineStart: 10-92-0924plqi 1 tablet by mouth once daily as needed for anxietyStart: 40-03-0228Pcxfynttn Active 0.5 MG PO As Directed May 18, 2022 12:00amStart: 13-57-1924Xfqthzflp Active 0.5 MG PO As Directed May 18, 2022 12:00amStart: 31-95-7513Xmwocbbeb Active 0.5 MG PO As Directed May 18, 2022 12:00amStart: 67-14-4983Oywzjfajx Active 0.5 MG PO As Directed May 18, 2022 12:00amStart: 99-30-1331Zdcwklyas Active 0.5 MG PO As Directed May 18, 2022 12:00amStart: 12-38-5593lyce 2 tablets by mouth three times dailyLORazepam 0.5 mg Tab mg tab(s), Oral, TID, Refills(s) 0 Start Date: 10/27/19 Status: Ordered Repeat number: 1take 1 tablet by mouth every six hoursLORazepam 0.5 MG 1 tablet as needed Orally every 6 hrs for panic attacks, as needed; three to four times per month Activemeclizine hydrochloride 25 mg oral tablet (20 sources)AntiemeticStart: 68-31-7387nrev 1 tablet by mouth three times daily meclizine 25 mg Tab 25 mg = 1 tab(s), Oral, TID Start Date: 05/29/25 Status: Ordered Repeat number: 1Start: 35-13-1313Zcjpm: 88-99-8880Rpvpoaxxt Active 25 MG PO Daily May 18, 2022 12:00am every 6-8 hours prn. 2 to 1Start: 23-46-8501Ylomtlyrl Active 25 MG PO Daily May 18, 2022 12:00am every 6-8 hours prn. 2 to 1Start: 36-90-4573Fsydtcqzm Active 25 MG PO Daily May 18, 2022 12:00am every 6-8 hours prn. 2 to 1Start: 55-71-3112Havfsuwuc Active 25 MG PO Daily May 18, 2022 12:00am every 6-8 hours prn. 2 to 1Start: 39-26-4112Gxuyqoxrw Active 25 MG PO Daily May 18, 2022 12:00am every 6-8 hours prn. 2 to 1melatonin 10 mg oral capsule (20 sources)Start: 99-14-0218opyt 1 mg by mouth once daily at bedtimemelatonin 10 mg oral capsule mg cap(s), Oral, Once a day (at bedtime), Refills(s) 0 Start Date: 06/25/25 Status: Ordered Repeat number: 1Start: 99-00-0929megm 1 tablet by mouth once daily at bedtimeStart: 71-34-5859kcxq 1 tablet by mouth once daily at bedtime as neededmelatonin 1 mg oral tablet 1 mg = 1 tab(s), Oral, Once a day (at bedtime), PRN for insomnia, # 90 tab(s), Refills(s) 0 Start Date: 10/27/19 Status: Ordered Quantity: 90.0 Unit: tab(s) Repeat number: 1Start: 10-27-2019 take 1 tablet by mouth once daily at bedtime as neededmelatonin 5 mg oral tablet 5 mg = 1 tab(s), Oral, Once a day (at bedtime), PRN for insomnia, # 60 tab(s), Refills(s) 0 Start Date: 10/27/19 Status: Ordered Quantity: 60.0 Unit: tab(s) Repeat number: 1Melatonin 5 MG 2 in evening Orally Once a day Not-Taking meloxicam 15 mg oral tablet (20 sources)Nonsteroidal Anti-inflammatory DrugStart: 99-28-7675bwjx 1 tablet by mouth once daily in the morningStart: 25-93-9927hvjp 15 mg by mouth once daily Meloxicam Active 15 MG PO Daily May 27, 2022 12:00amStart: 13-25-3266ptvb 15 mg by mouth once dailyMeloxicam Active 15 MG PO Daily May 27, 2022 12:00amStart: 52-79-2778rfla 15 mg by mouth once dailyMeloxicam Active 15 MG PO Daily May 27, 2022 12:00amStart: 66-52-1576rmgx 15 mg by mouth once daily Meloxicam Active 15 MG PO Daily May 27, 2022 12:00amStart: 76-65-7018tohw 15 mg by mouth once dailyMeloxicam Active 15 MG PO Daily May 27, 2022 12:00amStart: 06-08-2017 End: 33-71-3463vyez 1 tablet by mouth once dailyMeloxicam 15 mg Tablet Discontinued 15 MG PO Daily June 07, 2017 11:00pm May 18, 2022 10: 27ammetFORMIN hydrochloride 500 mg oral tablet (20 sources)BiguanideStart: 89-44-8662owoa 1 tablet by mouth twice dailyStart: 90-07-0940rufa 500 mg by mouth twice dailyMetformin Active 500 MG PO Twice daily May 18, 2022 12:00amStart: 72-54-1869zvhg 500 mg by mouth twice daily Metformin Active 500 MG PO Twice daily May 18, 2022 12:00amStart: 25-77-3202hafc 500 mg by mouth twice dailyMetformin Active 500 MG PO Twice daily May 18, 2022 12:00amStart: 62-41-6335adjd 500 mg by mouth twice daily Metformin Active 500 MG PO Twice daily May 18, 2022 12:00amStart: 71-08-8914kiod 500 mg by mouth twice dailyMetformin Active 500 MG PO Twice daily May 18, 2022 12:00amMulti complete (8 sources)Start: 89-57-6489Wetws complete Multi complete Start Date: 10/27/19 Status: Ordered Repeat number: 1Start: 08-39-5013Hzxkz complete Multi complete Start Date: 10/27/19 Status: OrderedMultivitamin preparation (20 sources)Start: 80-89-0834ivku 1 tablet by mouth once dailyMultivitamin Active 1 TAB PO Daily June 08, 2017 3:28amStart: 17-21-2571ejvk 1 tablet by mouth once dailyMultivitamin Active 1 TAB PO Daily June 08, 2017 2:28am Start: 64-09-2436ieoa 1 tablet by mouth once daily in the morningMultivitamin Active 1 TAB PO Every morning June 07, 2017 11:00pmStart: 44-60-0614zuqk 1 tablet by mouth once daily in the morningMultivitamin Active 1 TAB PO Every morning June 08, 2017 12:00amStart: 30-99-2379gnve 1 tablet by mouth once dailyMultivitamin Active 1 TAB PO Daily June 07, 2017 11:00pmStart: 12-60-9508ezcn 1 tablet by mouth once dailyMultivitamin Active 1 TAB PO Daily June 08, 2017 12:00amMultivitamin Tablet (17 sources)Start: 57-30-6834jtlh 1 tablet by mouth once daily in the morning Start: 97-13-9186jgha 1 tablet by mouth once daily in the morningMultivitamin Tablet Active 1 TAB PO Every morning June 08, 2017 12:00am Complies with drug therapyStart: 45-17-6441uonv 1 tablet by mouth once daily in the morning Start: 96-11-8349mppf 1 tablet by mouth once daily in the morningMultivitamin Tablet Active 1 TAB PO Every morning June 08, 2017 12:00amphenazopyridine hydrochloride 100 mg oral tablet (1 source)Start: 01-24-2025 End: 75-33-6954ieeq 1 tablet by mouth three times dailyPyridium 100 mg Tab 100 mg = 1 tab(s), Oral, TID, X 7 day(s), # 21 tab(s), Refills(s) 0, [facility]: [facility] /[facility] #[id number], 165, cm, 01/24/25 11:37:00 EDT, Height/Length Dosing, 70.1, kg, 01/24/25 11:37:00 EDT, Weight Dosing Start Date: 01/24/25 Stop Date: 01/31/25 Status: Ordered Quantity: 21.0 Unit: tab(s) Repeat number: 1promethazine hydrochloride 25 mg oral tablet (20 sources)PhenothiazineStart: 98-88-2334yleb 1 tablet by mouth every twelve hours as needed for nausea and vomitingStart: 03-13-2018 End: 20-81-5013tmfe 1 tablet by mouth every four hours at dinner for nausea and vomitingPromethazine 12.5 mg tablet Discontinued 12.5 MG PO Q6H as needed for nausea and vomiting 20 0 2017 11:00pm April 24, 2018 7:47pm 3 doses/day;do not give 3rd dose after evening meal or w/in 4hr of bedtime sertraline 100 mg oral tablet (20 sources)Serotonin Reuptake InhibitorStart: 62-27-5827hcde 1 tablet by mouth once dailyZoloft 100 mg Tab 100 mg = 1 tab(s), Oral, Daily Start Date: 05/29/25 Status: Ordered Repeat number:1Start: 10-09-2023 End: 06-07-9921tuvo 3 tablets by mouth once dailyStart: 07-25-3209qgnq 150 mg by mouth at bedtimeSertraline Active 150 MG PO Bedtime October 09, 2023 1:00am Start: 03-04-2022 End: 65-19-9981frpz 1 tablet by mouth once daily at bedtimeSertraline (Zoloft) 100 mg Tablet Discontinued 100 MG PO Daily at bedtime March 03, 2022 11:00pm Kam chapman 2023 1:17pmStart: 49-95-0252Trciqxzjtt (Zoloft) 100 mg Tablet Active 50 MG PO Daily March 04, 2022 12:00amStart: 06-62-0677bamg 1 tablet by mouth once dailysertraline 50 mg Tab 50 mg = 1 tab(s), Oral, Daily, # 90 tab(s), Refills(s) 0 Start Date: 10/27/19 Status: Ordered Quantity: 90.0 Unit: tab(s) Repeat number: 1simvastatin 20 mg oral tablet (20 sources)HMG-CoA Reductase InhibitorStart: 93-25-6296booy 1 mg by mouth once daily at bedtimesimvastatin 5 mg Tab mg tab(s), Oral, Once a day (at bedtime), Refills(s) 0 Start Date: 07/31/22 Status: Ordered Repeat number: 1Start: 21-76-7998ckxq 1 tablet by mouth once daily at bedtimeStart: 48-94-7461pruf 20 mg by mouth once dailySimvastatin Active 20 MG PO Daily May 18, 2022 12:00amStart: 21-72-2369bcaz 20 mg by mouth once dailySimvastatin Active 20 MG PO Daily May 18, 2022 12:00amStart: 10-45-5254coqr 20 mg by mouth once dailySimvastatin Active 20 MG PO Daily May 18, 2022 12:00amStart: 17-50-7486lcbo 20 mg by mouth once dailySimvastatin Active 20 MG PO Daily May 18, 2022 12:00amStart: 65-20-7492xbmr 20 mg by mouth once dailySimvastatin Active 20 MG PO Daily May 18, 2022 12:00amSimvastatin Active Sulfamethoxazole-TMP DS (4 sources)Sulfamethoxazole-TMP DS Activetemazepam 15 mg oral capsule (14 sources)BenzodiazepineStart: 22-84-8099kklv 1 capsule by mouth once daily at bedtimetemazepam 15 mg Cap 15 mg = 1 cap(s), Oral, Once a day (at bedtime) Start Date: 05/29/25 Status: Ordered Repeat number: 1Start: 03-13-2025 End: 86-33-9332pclo 1 capsule by mouth once daily at bedtime as neededTemazepam 15 mg capsule Discontinued 15 MG PO Daily at bedtime as needed March 12, 2025 11:00pm March 14, 2025 7:56amtiZANidine 4 mg oral tablet (20 sources)Central alpha-2 Adrenergic AgonistStart: 10-27-3740iewi 1 mg by mouth every eight hourstiZANidine 4 mg Tab mg tab(s), Oral, q8hr, Refills(s) 0 Start Date: 10/27/19 Status: Ordered Repeat number: 1Start: 08-79-3549hcde 2 tablets by mouth every eight hours as needed for muscle spasmsStart: 06-08-2017 take 8 mg by mouth every eight hoursTizanidine Active 8 MG PO Q8H June 08, 2017 12:00amStart: 96-95-8834qvbe 6 mg by mouth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 mg oral capsule) meloxicam (meloxicam 15 mg oral tablet) metformin (metformin 500 mg Tab) multivitamin with iron (Iron 100 Plus) sertraline (Zoloft 100 mg Tab) simvastatin (simvastatin 20 mg Tab) tizanidine (tiZANidine 4 mg Tab) Procedures Performed Cystourethroscopy with dilation of urethral stricture (08/24/2022), Appendectomy, Breast, Cholecystectomy, Partial hysterectomy. What to do next Scheduled Follow-Up Appointments Wednesday 11:40 AM EST With: MILLER Salazar APRN, Deepika Oliver Where: [facility] [address] [place] [address]- You Need to Schedule the Following Appointments Follow Up with JORDANA BALDERAS, Joshua Dempsey, BIPIN When: Where: [address] [place] [address] [address] [address]- Medications What How Much When Instructions Changed doxazosin (doxazosin 2 mg Tab) 1 Tablets By Mouth Every day Duration: 30 Days Pickup at [facility]/pharmacy #[id number] Unchanged cephalexin (Keflex 500 mg Cap) 1 Capsules By Mouth As Directed Pt to take 1 tab the day before procedure and the 2nd tab the day of procedure once completed. Unchanged acetaminophen (Tylenol) By Mouth Contact prescribing physician if questions or concerns Unchanged diazepam (Valium 10 mg Tab) 1 Tablets By Mouth 3 times a day as needed for for anxiety Contact prescribing physician if questions or concerns Unchanged divalproex sodium (Depakote ER 500 mg Tab-ER) By Mouth Every day Contact prescribing physician if questions or concerns Unchanged divalproex sodium (divalproex sodium 250 mg ER Tab) By Mouth Every day Contact prescribing physician if questions or concerns Unchanged divalproex sodium (divalproex sodium 500 mg ER Tab) By Mouth Every day Contact prescribing physician if questions or concerns Unchanged dulaglutide (Trulicity Pen 3 mg/ 0.5 mL subcutaneous solution) 3 Milligram Subcutaneous Every week Contact prescribing physician if questions or concerns Unchanged ergocalciferol (Vitamin D) By Mouth Contact prescribing physician if questions or concerns Unchanged fluconazole (Diflucan 150 mg Tab) 1 Tablets By Mouth Every 7 days take on 2024 Contact prescribing physician if questions or concerns Unchanged gabapentin (gabapentin 800 mg Tab) By Mouth 3 times a day Contact prescribing physician if questions or concerns Unchanged lorazepam (LORazepam 0.5 mg Tab) By Mouth 3 times a day Contact prescribing physician if questions or concerns Unchanged meclizine (meclizine 25 mg Tab) 1 Tablets By Mouth 3 times a day Contact prescribing physician if questions or concerns Unchanged melatonin (melatonin 10 mg oral capsule) By Mouth Once a day (at bedtime) Contact prescribing physician if questions or concerns Unchanged meloxicam (meloxicam 15 mg oral tablet) By Mouth Every day Contact prescribing physician if questions or concerns Unchanged metformin (metformin 500 mg Tab) 1 Tablets By Mouth 2 times a day Contact prescribing physician if questions or concerns Unchanged multivitamin with iron (Iron 100 Plus) By Mouth Every day Contact prescribing physician if questions or concerns Unchanged Non-Formulary Medication (Multi complete) Contact prescribing physician if questions or concerns Unchanged sertraline (Zoloft 100 mg Tab) 1 Tablets By Mouth Every day Contact prescribing physicianif questions or concerns Unchanged simvastatin (simvastatin 20 mg Tab) 1 Tablets By Mouth Once a day (in the evening) Contact prescribing physician if questions or concerns Unchanged tizanidine (tiZANidine 4 mg Tab) By Mouth Every 8 hours Contact prescribing physician if questions or concerns Pharmacy Information [facility]/pharmacy #[id number]: [address], [place] [phone] Medications and Immunizations Administered Given lidocaine Top 2% Gel w/Appl 6 mL, 6 mL, Topical. For: Unspecified urethral stricture, female, Feeling of incomplete bladder emptying Allergies Bactr (more content not included)...[facility] HospitalU[facility] Office/Clinic Noteon [id number] Office/Clinic NoteUrology Office/Clinic Note HPI Staff CYSTO/UD History of Present Illness Tests reviewed: I have reviewed the previous health record information and history for this patient from Dr. Preston. I have reviewed and verified the staff HPI to be accurate for this encounter. Review of Systems ROS - Provider [...] no anxiety. Genitourinary: See HPI. Physical Exam General Appearance: alert, no distress, well nourished, well developed adult. Procedure Operative Information Anesthesia Type: Local Procedure: Local Cystoscopy with Urethral Dilation Complications: None Surgical risks, benefits, details of the procedure have been explained to the patient. Full informed consent has been obtained. Intraoperative Information Prepped: Patient is brought back to the endoscopy suite. Patient is placed in modified dorso/lithotomy position. Patient prepped in the usual fashion with Betadine solution. 2% Xylocaine Jelly is placed per Urethra. After waiting several minutes, the Cystoscope is introduced. The Urethra is: Tight at 16 The Bladder: No tumors or stones, Trabeculated: Moderate (2) The Ureteral orifices: Show efflux of clear urine The Urethra was dilated to: 16-30 Pashto with sounds. Specimens Removed: None Removal: Cystoscope is removed. The patient tolerated it well. Postoperative Information Patient is discharged home with antibiotic coverage. Follow up arranged. Assessment/Plan 1. Unspecified urethral stricture, female (N35.92: Unspecified urethral stricture, female) S/p cysto/UD 08/24/22. Noticed improvement. [1] Pt had IO cysto/UD today wo complications. Taking Doxazosin 2 mg qd. Follow up 2 mos with BRIE or sooner if needed. Pt understands and agrees with plan. 2. Feeling of incomplete bladder emptying (R39.14: Feeling of incomplete bladder emptying) PVR (cc): 07/31/22 - 57 05/28/25 - [facility] [place] due to UTI symptoms. No culture was sent. Has been to [facility] ER a few different occasions due to being unable to urinate, rash on thighs and stomach, and lower extremity swelling. CT AP w con 04/18/25 [facility] [place] unremarkable from the urologic standpoint. [2] See #1. Patient tolerates cystoscopy and urethral dilatation well. Hopefully this will decrease the numbersof UTIs she is having as well as improved symptomatology. She will stay on doxazosin at 2 mg nightly. Refill sent today. Follow-up within the next couple months with OLEG Ozuna. She will call for problems prior to that visit. Follow-up With When Contact Information JORDANA BALDERAS, Joshua Dempsey, URL [address] [address]- Additional Instructions: 2 mos with BRIE Patient Education Urethral Stricture I, Marycruz Toney, personally scribed for Dr. Preston on 06/25/2025 14:02:38. . Documentation recorded by the scribe, Marycruz Toney, accurately reflects the services(s) I performed and decisions made by me. Authenticated by Dr. Preston on 06/25/2025 14:04:42. Portions of this record may have been created with voice recognition artificial intelligence software, specifically [employer], [employer] and or [employer]. Substitutions may have occurred due to the inherent limitations of voice recognition and artificial intelligence software. Problem List/Past Medical History Ongoing Anemia Anxiety Cervical cancer chlamydia Diabetic neuropathy Epilepsy Feeling of incomplete bladder emptying Fibromyalgia Gallstone Headache Heart murmur History of cervical cancer History of UTI Hypocalcemia (deficiency of calcium in the bloodstream) Microscopic hematuria Mixed anxiety and depressive disorder Muscle pain Muscle weakness Panic disorder Scoliosis deformity of spine Smoker Spasm of back muscles Strain of neck muscle PURA (stress urinary incontinence, female) Type II diabetes mellitus without complication Unspecified urethral stricture, female Urethral stricture Historical No qualifying data Procedure/Surgical History Cystourethroscopy with dilation of urethral stricture (08/24/2022), Appendectomy, Breast, Cholecystectomy, Partial hysterectomy. Medications Depakote ER 500 mg Tab-ER, Oral, Daily Diflucan 150 mg Tab, 150 mg= 1 tab(s), Oral, q7day divalproex sodium 250 mg ER Tab, Oral, Daily divalproex sodium 500 mg ER Tab, Oral, Daily doxazosin 2 mg Tab, 2 mg= 1 tab(s), Oral, Daily, 3 refills gabapentin 800 mg Tab, Oral, TID Iron 100 Plu (more content not included)...[facility] Comment on above:Result Comment: Electronically Signed By: Joshua PRESTON MD\.br\Date and Time Signed: 06/25/25 14:05 EDT\.br\Electronically Co-Signed By: Marycruz Toney\.br\Date and Time Co-Signed: 06/25/25 14:04 EDTX-ray report Ordered By: Dar Messina on [id number] [facility]MART[facility] [place] [address] [place] [address] XRay Report Signed Patient: Rachel Mcgarry MR#: [id number] : 1980 Acct:[id number] Age/Sex: 45 / F ADM Date: 5 Loc: XD Room: Type: [facility] Attending Dr: Kyler Miramontes MD Copies to: Kyler Miramontes MD~ Ordering Provider: Kyler Miramontes MD Date of Service: 06/18/25 XR/XR lumbar spine AP/LAT/FLX/EXT: M46.1 - Sacroiliitis, not elsewhere classified XR lumbar spine AP/LAT/FLX/EXT 06/18/2025 5:28 PM SIGNS AND SYMPTOMS: ^M46.1 - Sacroiliitis, low back pain with right lower extremity pain PROTOCOLS: Frontal, lateral, and flexion-extension views of the lumbar spine COMPARISON: 02/04/2024 FINDINGS: There is a dextro convex curvature of the lumbar spine. No pathologic movement on flexion or extension. There is no fracture or destructive lesion. There is mild disc height loss at L2-3, L3-4, and L4-5 similar to the prior exam. There is accompanying anterior osteophyte formation. Facet hypertrophy is present, greatest at L4-L5. The sacrum and sacroiliac joints are normal. There is evidence of prior cholecystectomy. XR/XR lumbar spine AP/LAT/FLX/EXT IMPRESSION: No fracture, subluxation, or pathologic movement. Multilevel degenerative changes redemonstrated. This is greatest at L3-L4 similar to the prior exam. Impression dictated by: Dar Messina M.D. 06/19/2025 12:11 AM Dictation Location: [facility]--17 Transcribed By: [facility] 06/19/2510 Dictated By: Dar Messina II, MD 06/19/25 0009 Signed By: 06/19/2510 [facility] Work Phone: XR lumbar spine AP/LAT/FLX/EXTon [id number] lumbar spine AP/LAT/FLX/[facility]ART[facility] [place] [address] [place] [address] XRay Report Signed Patient: Rachel Mcgarry MR#: [id number] 1 : 1980 Acct:[id number] Age/Sex: 45 / F ADM Date: 06/18/25 Loc: XD Room: Type: [facility] Attending Dr: Kyler Miramontes MD Copies to: Kyler Miramontes MD Ordering Provider: Kyler Miramontes MD Date of Service: 06/18/25 XR/XR lumbar spine AP/LAT/FLX/EXT: M46.1 - Sacroiliitis, not elsewhere classified XR lumbar spine AP/LAT/FLX/EXT 06/18/2025 5:28 PM SIGNS AND SYMPTOMS: M46.1 - Sacroiliitis, low back pain with right lower extremity pain PROTOCOLS: Frontal, lateral, and flexion-extension views of the lumbar spine COMPARISON: 02/04/2024 FINDINGS: There is a dextro convex curvature of the lumbar spine. No pathologic movement on flexion or extension. There is no fracture or destructive lesion. There is mild disc height loss at L2-3, L3-4, and L4-5 similar to the prior exam. There is accompanying anterior osteophyte formation. Facet hypertrophy is present, greatest at L4-L5. The sacrum and sacroiliac joints are normal. There is evidence of prior cholecystectomy. XR/XR lumbar spine AP/LAT/FLX/EXT IMPRESSION: No fracture, subluxation, or pathologic movement. Multilevel degenerative changes redemonstrated. This is greatest at L3-L4 similar to the prior exam. Impression dictated by: Dar Messina M.D. 06/19/2025 12:11 AM Dictation Location: [facility]--17 Transcribed By: [facility] 06/19/25 0011 Dictated By: Dar Messina II, MD 06/19/25 0009 Signed By: 06/19/25 0011[facility] Group[facility] Note-Physicianon [id number] Note-PhysicianED Note-Physician Basic Information Time Seen: Tanvir RIVAS, Hussein Jose 06/11/2025 19:23 Chief Complaint pt arrives for c/o possible UTI / yeast infection. also c/o ear infection that has not gone away History of Present Illness A 45-year-old female reports to the ED with concerns of some mild dysuria. Reports possible UTI yeast infection. She states no fevers or chills. Reports has a history of these. She also reports that she is having right ear infection. Reports that she is on some drops right now, was not working. Is only her right ear. No fevers or chills. No cough or congestion. Reports allergic to Bactrim. Review of Systems No other aggravating or relieving factors no other associated symptoms no other prior treatments orcomplaints. Family: Reviewed and noncontributory Social: lives at home Review of systems negative unless otherwise specified in the HPI. Physical Exam Vitals & Measurements T: 36.4 ???C(Oral) HR: 67(Peripheral) RR: 18 BP: 165/96 SpO2: 100% HT: 165 cm WT: 69.6 kg BMI: 25.56 General: The patient appears well and in no apparent distress. Patient is resting in chair. Afebrile Skin: Warm, dry, no pallor noted. Head: Normocephalic, atraumatic Neck: No JVD Eye: PERRLA, EOMI ENT: Moist mucus membranes. Pharynx pink moist no erythema or exudates. Bilateral TMs intact with no erythema or bulging. Right external ear canal is erythematous with some mild debris. Cardiovascular: Regular rate. normal peripheral perfusion Respiratory: No respiratory distress. no accessory muscle use. no obvious audible wheezing Chest Wall: no deformity Musculoskeletal: normal ROM, no deformity, no swelling GI: No obvious distention. Abdomen soft. No rebound tenderness or guarding noted. No CVA tenderness Neurological: A&O. moves all extremities equal strength and symmetry Psychiatric: Cooperative and appropriate Medical Decision Making A 45-year-old female reports to the ED with mild dysuria as well as right ear infection. Reports that the dysuria is either UTI or a yeast infection. Denies any fevers or chills. Due to concerns we did do a urinalysis. Urinalysis negative. Discussed likely more of a yeast infection. Patient startedon Diflucan for coverage. She does have right sided otitis externa on exam as well. Patient startedon Ciprodex for antibiotic coverage. Discussed return precautions. Follow-up with your primary careprovider in 3 to 5 days. If symptoms worsen, do not improve, or new symptoms arise please report back to emergency department for further evaluation. The patient was understanding and agreeable to plan moving forward. Assessment/Plan Right otitis externa (H60.91: Unspecified otitis externa, right ear) Skin yeast infection (B37.2: Candidiasis of skin and nail) Orders: ciprofloxacin-dexamethasone otic, 4 drop(s), Otic, BID for 7 day(s), 7.5 mL, Refill(s) 0, [id number], 165, cm, 06/11/25 19:13:00 EDT, Height/Length Dosing, 69.6, kg, 06/11/25 19:13:00 EDT, Weight Dosing ciprofloxacin-dexamethasone otic, 4 drop(s), Susp-Otic, Ear-Right, BID for 10 day(s), Stop date 06/21/25 20:26:00 EDT, STAT, Start date 06/11/25 20:27:00 EDT fluconazole, 300 mg = 2 tab(s), Tab, Oral, Once, Stop date 06/11/25 20:27:00 EDT, STAT, Start date 06/11/25 20:27:00 EDT fluconazole, 150 mg = 1 tab(s), Oral, Once, # 1 tab(s), Refills(s) 0, Pharmacy: [facility]/pharmacy #[id number],165, cm, 06/11/25 19:13:00 EDT, Height/Length Dosing, 69.6, kg, 06/11/25 19:13:00 EDT, Weight Dosing U Beta Hcg Qual UA with Cult Rflx Medications Administered Given ciprofloxacin-dexamethasone 0.3%-0.1% Otic Susp, 4 drop(s), Ear-Right [id number] [F], 300 mg, Oral Disposition Plan Discharge Prescription List Prescriptions Ciprodex 0.3%-0.1% Susp-Otic, 4 drop(s), Otic, BID Diflucan 150 mg Tab, 150 mg= 1 tab(s), Oral, Once Follow-up With When Contact Information AJIT PETTIT In 3 days 06/14/2025 EDT [address] [place] [address]- Business (1) Additional Instructions: Call Dr for diagnosis based follow up Patient Education Otitis Externa Attestation Patient seen and evaluated by the physician commercial escrow assistant. Attending physician was present in the emergency department and supervised care. This visit was performed by both the physician and an APC. I performed all aspects of the MDM as documented. This report was transcribed using voice recognition software. Every effort was made to ensure accuracy, however, inadvertently computerized restaurant hourly team member mistakes may be present. Appropriate healthcare PPE [...] of complications. (Independent Interpretation) My (EKG/X-Ray/US/CT as (more content not included)...[facility] SystemComment on above:Result Comment: Electronically Signed By: Hussein Ramey PA-C\.br\Date and Time Signed: 06/11/2523:11 EDT\.br\Electronically Co-Signed By: Ruth Thompson D.O..br\Date and Time Co-Signed: 06/12/25 04:44 EDTED Clinical Summaryon [id number] Clinical SummaryED Clinical Summary [address] [address] ED Clinical Summary Person Information Name: [facility]ACHEL [facility] Age[facility] 45 Years : 1980 Sex: Female Language: Uruguayan PCP: AJIT PETTIT CNP Marital Status: Visit Id: Visit Reason: Dysuria; Medical problem - minor; Ear pain; EAR PAIN/SWELLING, UTI/YEAST INFECTION SYMPTOMS PER PATIENT. Speciality: Acuity: 4 Enc Type: Emergency Med Service: Emergency Arrival: 06/11/2025 19:06:52 Discharge: 06/11/2025 20:54:01 LOS: 000 01:48 Checkin: 06/11/2025 19:06:52 Checkout: 06/11/2025 20:54:01 Dispo Type: Home (Routine DC) EVENTS: Event Name Event Status Request Date/Time Start Date/Time Complete Date/Time Arrive Complete 06/11/2025 19:06:52 06/11/2025 19:06:52 06/11/2025 19:06:52 Document Home Meds Request 06/11/2025 19:06:52 Triage Complete 06/11/2025 19:06:52 06/11/2025 19:13:30 06/11/2025 19:13:30 Bed Assign Complete 06/11/2025 19:13:38 06/11/2025 19:13:38 06/11/2025 19:13:38 Dr Exam Complete 06/11/2025 19:13:38 06/11/2025 19:23:38 06/11/2025 19:23:38 RN Exam Complete 06/11/2025 19:13:38 06/11/2025 19:32:47 06/11/2025 19:32:47 Registration Complete 06/11/2025 19:23:38 06/11/2025 20:44:22 06/11/2025 20:44:22 Pending Labs Complete 06/11/2025 19:26:30 06/11/2025 20:00:51 Lab Complete 06/11/2025 19:26:30 06/11/2025 20:00:51 Urine Collect Complete 06/11/2025 19:26:30 06/11/2025 20:00:51 Meds Admin Complete 06/11/2025 20:27:44 06/11/2025 20:50:39 Meds Admin Request 06/11/2025 20:28:09 Discharge Complete 06/11/2025 20:31:51 06/11/2025 20:54:08 06/11/2025 20:54:08 Reg Complete Request 06/11/2025 20:44:22 Reg Bed Request Complete 06/11/2025 20:44:22 06/11/2025 20:44:22 06/11/2025 20:44:22 Transfer Complete 06/11/2025 20:54:08 06/11/2025 20:54:08 06/11/2025 20:54:08 ADDRESS: [address] [facility] [id number] PHYS DOC NOTES: MEDICAL INFORMATION: Prescriptions Given: New Medications [facility]/pharmacy #[id number], [address], [place] [id number], [phone] ciprofloxacin-dexamethasone otic (Ciprodex 0.3%-0.1% Susp-Otic) 4 Drops Otic 2 times a day for 7 Days. Refills: 0. Medications to Continue Taking That Have Changed [facility]/pharmacy #[id number], [address], [place] [id number], [phone] START: fluconazole (Diflucan 150 mg Tab) 1 Tablets By Mouth Once. Refills: 0. Other Medications START: fluconazole (Diflucan 150 mg Tab) 1 Tablets By Mouth every 7 days. take on 01/31/2025. Refills: 0. Medications to Continue with No Changes Other Medications acetaminophen acetaminophen (Tylenol) By Mouth. cariprazine (Vraylar 1.5 mg oral capsule) 1 Capsules By Mouth every day. cephalexin (Keflex 500 mg Cap) 1 Capsules By Mouth As Directed. Pt to take 1 tab the day before procedure and the 2nd tab the day of procedure once completed.. Refills: 0. diazepam (Valium 10 mg Tab) 1 Tablets By Mouth 3 times a day as needed for anxiety. divalproex sodium (Depakote ER 500 mg Tab-ER) By Mouth every day. divalproex sodium (divalproex sodium 250 mg ER Tab) By Mouth every day. divalproex sodium (divalproex sodium 500 mg ER Tab) By Mouth every day. doxazosin (doxazosin 2 mg Tab) 1 Tablets By Mouth every day. Refills: 3. dulaglutide (Trulicity Pen 3 mg/0.5 mL subcutaneous solution) 3 Milligram Subcutaneous every week. ergocalciferol (Vitamin D) By Mouth. gabapentin (gabapentin 800 mg Tab) By Mouth 3 times a day. lorazepam (LORazepam 0.5 mg Tab) By Mouth 3 times a day. meclizine (meclizine 25 mg Tab) 1 Tablets By Mouth 3 times a day. melatonin (melatonin 1 mg oral tablet) 1 Tablets By Mouth once a day (at bedtime) as needed for insomnia. melatonin (melatonin 5 mg oral tablet) 1 Tablets By Mouth once a day (at bedtime) as needed for insomnia. meloxicam (meloxicam 15 mg oral tablet) By Mouth every day. metformin (metformin 500 mg Tab) 1 Tablets By Mouth 2 times a day. Non-Formulary Medication (Multi complete) sertraline (Zoloft 100 mg Tab) 1 Tablets By Mouth every day. simvastatin (simvastatin 20 mg Tab) 1 Tablets By Mouth once a day (in the evening). temazepam (temazepam 15 mg Cap) 1 Capsules By Mouth once a day (at bedtime). tizanidine (tiZANidine 4 mg Tab) By Mouth every 8 hours. PATIENT EDUCATION INFORMATION: Instructions: Otitis Externa Follow up: With: Address: When: AJIT PETTIT [address] [place] [address] [employer] (1) In 3 days 06/14/2025 Comments: Call Dr for diagnosis based follow up DIAGNOSIS: Right otitis externa; [facility] Patient Summaryon [id number] Patient SummaryED Patient Summary [address] [address] Patient Discharge Instructions Person Information Name: RACHEL MCGARRY Age: 45 Years Arrival Date: 06/11/2025 19:06:52 Discharge Diagnosis: Right otitis externa; Skin yeast infection Primary Care Physician: AJIT PETTIT CNP Provider Information Primary Provider: Advanced Birdcage Assembler:Hussein Ramey PA-C The exam and treatment you received in the Emergency Department were for an urgent problem and are not intended as complete care. It is important that you follow up with a doctor, nurse practitioner,or physician???s commercial escrow assistant for ongoing care. If your symptoms become worse or you do not improve asexpected and you are unable to reach your usual health care provider, you should return to the Emergency Department. We are available 24 hours a day. RACHEL MCGARRY has been given the following list of patient education materials, prescriptions and follow-up instructions: Follow-up Instructions: With: Address: When: AJIT PETTIT [address] [place] [address] Business (1) In 3 days 06/14/2025 Comments: Call Dr for diagnosis based follow up In the event that this physician does not participate in your insurance network, please consult with your insurance company to find a nearby participating provider. Patient Education Materials: Otitis Externa A MESSAGE TO ALL PATIENTS REGARDING OPIOIDS PRESCRIPTION OPIOIDS: WHAT YOU NEED TO KNOW Prescription opioids can be used to help relieve siyttlvn-gu-nbsogh pain and are often prescribed following a [...] believe you may be struggling with addiction, t (more content not included)...Normal[facility] HospitalU BetaHcg Qual[place] 06-11-2025U beta hCG QlNegativeNormalCommunity Memorial HospitalComment on above:Performed By: #### [id number] #### [facility] [address], [place] [address]PE with Cult Rflxon [id number] (U)ColorlessAbnormalYellow Community [facility] HospitalComment on above:Result Comment: Microscopic readings are only performed on those samples that meet specific criteria set forth by [facility].Performed By: #### [id number] #### [facility] [address], [place] [address]Oowsreh (U) [Mass/Vol]NegativeNormalNegativeCommunity Memorial HospitalComment on above:Performed By: #### [id number] #### [facility] [address], [place] [address]Vmzuolb Ql (U)NegativeNormalNegativeCommunity [facility] Comment on above:Performed By: #### [id number] #### [facility] [address], [place] [address]CO BloodNegativeNormalNegTriHealth [facility] Comment on above:Performed By: #### [id number] #### [facility] [address], [place] [address]IO ClarityClearNormalClearCommunity Memorial HospitalComment on above:Performed By: #### [id number] #### [facility] [address], [place] [address]UR Leuk EstNegativeNormalNegTriHealth [facility] Comment on above:Performed By: #### [id number] #### [facility] [address], [place] [address]KF NitriteNegativeNormalNegTriHealth [facility] Comment on above:Performed By: #### [id number] #### [facility] [address], [place] [address]US pH6.5Invalid Interpretation Code5.0-9.0Community Memorial HospitalComment on above:Performed By: #### [id number] #### [facility] [address], [place] [address]IQ ProteinNegativeNormalNegTri[facility] Comment on above:Performed By: #### [id number] #### [facility] [address], [place] [address]NV Spec Grav1.005Invalid Interpretation Code1.005-1.030Community Memorial HospitalComment on above:Performed By: #### [id number] #### [facility] [address], [place] [address]FV UrobilinogenNegativeNormalNegativeCommunity Memorial HospitalComment on above:Performed By: #### [id number] #### [facility] [address], [place] [address]Wujxheohseiy (U) [Mass/Vol]NegativeNormalNegTriHealth McCullough-Hyde Memorial HospitalComment on above:Performed By: #### [id number] #### [facility] [address], [place] [address]JN Spec DescClean CatchNormalCommunity Memorial HospitalComment on above:Performed By: #### [id number] #### [facility] [address], [place] [address]Sykdhgqeaw Visit Summaryon [id number] Visit Summary Ambulatory Visit Summary RACHEL MCGARRY :1980 Visit Date:05/29/2025 Ambulatory Visit Instructions Your Diagnosis Unspecified urethral stricture, female Feeling of incomplete bladder emptying Your Care Team Attending Physician - Joshua PRESTON MD Primary Care Physician - AJIT PETTIT CNP Referring Physician - AJIT PETTIT CNP This Is Your Medications List cephalexin (Keflex 500 mg Cap) doxazosin (doxazosin 2 mg Tab) Contact prescribing physician if questions or concerns Non-Formulary Medication (Multi complete) acetaminophen acetaminophen (Tylenol) cariprazine (Vraylar 1.5 mg oral capsule) diazepam (Valium 10 mg Tab) divalproex sodium (Depakote ER 500 mg Tab-ER) divalproex sodium (divalproex sodium 250 mg ER Tab) divalproex sodium (divalproex sodium 500 mg ER Tab) dulaglutide (Trulicity Pen 3 mg/0.5 mL subcutaneous solution) ergocalciferol (Vitamin D) fluconazole (Diflucan 150 mg Tab) gabapentin (gabapentin 800 mg Tab) lorazepam (LORazepam 0.5 mg Tab) meclizine (meclizine 25 mg Tab) melatonin (melatonin 1 mg oral tablet) melatonin (melatonin 5 mg oral tablet) meloxicam (meloxicam 15 mg oral tablet) metformin (metformin 500 mg Tab) sertraline (Zoloft 100 mg Tab) simvastatin (simvastatin 20 mg Tab) temazepam (temazepam 15 mg Cap) tizanidine (tiZANidine 4 mg Tab) Procedures Performed Cystourethroscopy with dilation of urethral stricture (08/24/2022), Appendectomy, Breast, Cholecystectomy, Partial hysterectomy. Discharge Vitals Heart Rate (Peripheral) 75 Respiratory Rate 16 Blood Pressure 136/90 Height 166 cm Height 65 in Weight 68.5 kg Weight 151.016 lb BMI 24.86 What to do next Scheduled Follow-Up Appointments Wednesday 2:45 PM EDT With: Joshua PRESTON MD Where: [facility] [address] [place] [address]- You Need to Schedule the Following Appointments Follow Up with Joshua PRESTON MD, URL When: Where: [address] [address]- Medications What How Much When Instructions New cephalexin (Keflex 500 mg Cap) 1 Capsules By Mouth As Directed Pt to take 1 tab the day before procedure and the 2nd tab the day of procedure once completed. Pickup at [facility]/pharmacy #[id number] Unchanged doxazosin (doxazosin 2 mg Tab) 1 Tablets By Mouth Every day Unchanged acetaminophen Contact prescribing physician if questions or concerns Unchanged acetaminophen (Tylenol) By Mouth Contact prescribing physician if questions or concerns Unchanged cariprazine (Vraylar 1.5 mg oral capsule) 1 Capsules By Mouth Every day Contact prescribing physician if questions or concerns Unchanged diazepam (Valium 10 mg Tab) 1 Tablets By Mouth 3 times a day as needed for for anxiety Contact prescribing physician if questions or concerns Unchanged divalproex sodium (Depakote ER 500 mg Tab-ER) By Mouth Every day Contact prescribing physician if questions or concerns Unchanged divalproex sodium (divalproex sodium 250 mg ER Tab) By Mouth Every day Contact prescribing physician if questions or concerns Unchanged divalproex sodium (divalproex sodium 500 mg ER Tab) By Mouth Every day Contact prescribing physician if questions or concerns Unchanged dulaglutide (Trulicity Pen 3 mg/ 0.5 mL subcutaneous solution) 3 Milligram Subcutaneous Every week Contact prescribing physician if questions or concerns Unchanged ergocalciferol (Vitamin D) By Mouth Contact prescribing physician if questions or concerns Unchanged fluconazole (Diflucan 150 mg Tab) 1 Tablets By Mouth Every 7 days take on 2024 Contact prescribing physician if questions or concerns Unchanged gabapentin (gabapentin 800 mg Tab) By Mouth 3 times a day Contact prescribing physician if questions or concerns Unchanged lorazepam (LORazepam 0.5 mg Tab) By Mouth 3 times a day Contact prescribing physician if questions or concerns Unchanged meclizine (meclizine 25 mg Tab) 1 Tablets By Mouth 3 times a day Contact prescribing physician if questions or concerns Unchanged melatonin (melatonin 1 mg oral tablet) 1 Tablets By Mouth Once a day (at bedtime) as needed for for insomnia Contact prescribing physician if questions or concerns Unchanged melatonin (melatonin 5 mg oral tablet) 1 Tablets By Mouth Once a day (at bedtime) as needed for for insomnia Contact prescribing physician if questions or concerns Unchanged meloxicam (meloxicam 15 mg oral tablet) By Mouth Every day Contact prescribing physician if questions or concerns Unchanged metformin (metformin 500 mg Tab) 1 Tablets By Mouth 2 times a day Contact prescribing physician if questions or concerns Unchanged Non-Formulary Medication (Multi complete) Contact prescribing physician if questions or concerns Unchanged sertraline (Zoloft 100 mg Tab) 1 Tablets By Mouth Every day Contact prescribing physicianif q (more content not included)...[facility] Office/Clinic Noteon [id number] Office/Clinic Note Urology Office/Clinic Note Chief Complaint Incomplete bladder emptying HPI Staff Re Referral per 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 PVR: 46 ml Taking oxybutynin 5 mg History of Present Illness Tests reviewed: reviewed UA and external records: primary care notes and CT. I have reviewed the previous health record information and history for this patient from Dr. Preston and external provider. I have reviewed and verified the staff HPI to be accurate for this encounter. Review of Systems PHQ Score Initial Depression Screen Score: 0 SCORE ROS - Provider Constitutional: denies weight loss, denies hot flashes. Eyes: denies eye problems. Gastrointestinal: denies nausea, denies vomiting. Cardiovascular: denies chest pain or angina. Integumentary: no dryness Musculoskeletal: denies musculoskeletal symptoms. ENMT: denies otolaryngeal symptoms. Respiratory: no shortness of breath. Heme/Lymph: denies easy bleeding tendency, denies easy bruising tendency. Psychiatric: no confusion, no anxiety. Genitourinary: See HPI. Physical Exam Vitals & Measurements HR: 75(Peripheral) RR: 16 BP: 136/90 HT: 65 in HT: 166 cm WT: 151.016 lb WT: 68.5 kg BMI: 24.86 General Appearance: alert , no acute distress, well nourished, well developed female. Assessment/Plan 45 yo F established pt re-referred by Ajit Pettit for UR. Latest OV 11/02/22 for urgency, urethralstricture and incomplete emptying. BBSQ 13 Portions of this record may have been created with voice recognition artificial intelligence software, specifically [employer], [employer] and or [employer]. Substitutions may have occurred due to the inherent limitations of voice recognition and artificial intelligence software. 1. Unspecified urethral stricture, female (N35.92: Unspecified urethral stricture, female) S/p cysto/UD 08/24/22. Noticed improvement. Taking Doxazosin 2 mg qd. Has been having to strain with urination like she did prior to cysto/UD in the past. Given symptomatology, repeating UD is indicated. She wishes to proceed. Encouraged pt tocontinue medical mgmt. -Will schedule Cysto/UD. Prophy ATB sent. The procedure risks, benefits, details, and treatment alternatives have been discussed with the patient. These include bleeding, infection, recurrent scar inover 50%, need for repeat dilation or other procedures, no symptom relief with dilation, among others. Full informed consent has been obtained. Will order Local anesthesia. 2. Feeling of incomplete bladder emptying (R39.14: Feeling of incomplete bladder emptying) PVR 07/31/22 - 57 mL 05/28/25 - 46 mL [facility] [place] due to UTI symptoms. No culture was sent. Has been to [facility] ER a few different occasions due to being unable to urinate, rash on thighs and stomach, and lower extremity swelling. CT AP w con 04/18/25 [facility] [place] unremarkable from the urologic standpoint. UA today negative for blood or infection. Reports she has had bladder pain. Denies dysuria. See #1. This patient with a history of recurrent UTIs and urethral stenosis, with the last urethral dilatation being back in 2021 has continued to strangury a type symptomatology. [facility] with symptoms of UTI and a feeling of incomplete emptying. Discussed options and she wishes to proceed with repeat cystoscopy and urethral dilatation with theinherent risk of bleeding, infection, antibiotics prophylaxis sent to pharmacy. Follow-up With When Contact Information JORDANA BALDERAS, Joshua Dempsey, URL [address] [address]- Additional Instructions: Schedule cysto/UD Patient Education Urethral Dilation Cystoscopy Marisa Alonzo, personally scribed for Dr. Preston on 05/29/2025 09:04:31. . Documentation recorded by the scribeMarisa, accurately reflects the services(s) I performed and decisions made by me. Authenticated by Dr. Preston on 05/29/2025 09:05:31. Problem List/Past Medical History Ongoing Anemia Anxiety Cervical cancer chlamydia Diabetic neuropathy Epilepsy Feeling of incomplete bladder emptying Fibromyalgia Gallstone Headache Heart murmur History of cervical cancer History of UTI Hypocalcemia (deficiency of calcium in the bloodstream) Microscopic hematuria Mixed anxiety and depressive disorder Muscle pain Muscle weakness Panic disorder Scoliosis deformity of spine Smoker Smoker Spasm of back muscles Strain of neck muscle PURA (stress urinary incontinence, female) Type II diabetes mellitus without compl (more content not included)...Normal [facility] HospitalComment on above:Result Comment: Electronically Signed By: Joshua PRESTON MD\.br\Date and Time Signed: 05/29/25 09:06 EDT\.br\Electronically Co-Signed By: Marisa Gamez\.br\Date and Time Co- Signed: 05/29/25 09:05 EDTBlood Mycobacterium tuberculosis stimulated gamma interferon detectionOrdered By: Leodan Patricia on 04-18-2025M. tuberculosis tuberculin stim IFN-g Ql (Bld)Comment.[facility] Medical CenterComment on above:QuantiFERON-TB Gold Plus is a qualitative indirect test forM tuberculosis infection (including disease) and isintended for use in conjunction with risk assessment,radiography, and other medical and diagnostic evaluations.The QuantiFERON-TB Gold Plus result is determined bysubtracting the Nil value from either TB antigen (Ag)value. The Mitogen tube serves as a control for the test.M. tuberculosis tuberculin stim IFN-g Ql (Bld)0.26 [IU]/mL. [facility] County Medical CenterM. tuberculosis tuberculin stim IFN-g Ql (Bld) 0.06 [IU]/mL.[facility] County Medical CenterBlood mitogen stimulated gamma interferon measurement (units/volume)Ordered By: Leodan Patricia on 04-18-2025 Mitogen stimulated gamma interferon Qn (Bld)>10.00 [IU]/mL.[facility] County Medical CenterCT abdomen pelvis w conon [id number] abdomen pelvis w con [facility] [place] [address] CT Scan Report Signed Patient: Rachel Mcgarry MR#: [id number] 1 : 1980 Acct:[id number] Age/Sex: 45 / F ADM Date: 04/18/25 Loc: Room: Type: [facility] Attending Dr: Jane DEJESUS Copies to: OLEG Goddard MD Ordering Provider: Enrique Pratt MD Date of Service: 04/18/25 CT/CT abdomen pelvis w con: D72.829 - Elevated white blood cell count, unspecified ([id number]) CT/CT chest w con: D72.829 - Elevated [...] internal septations. Unremarkable right adnexa. Uterus absent.] Peritoneum/Retroperitoneum:No free air or free fluid. Moderate plaque involving the nonaneurysmal aorta.[No adenopathy. Abd wall/Bones:No suspicious osseous lesion.[ CT/CT chest w con IMPRESSION: Negative for suspicious mass or metastatic adenopathy. Large left axillary lymph nodes with biopsy clip is noted, correlate with prior pathology. Impression dictated by: Kenneth Goel M.D. 04/18/2025 11:53 AM Dictation Location: [place] [address] Transcribed By: [facility] 04/18/25 1153 Dictated By: Kenneth Goel MD 04/18/25 1145 Signed By: 04/18/25 1153[facility] Physician GroupCreatinineon 04-18-2025 Creatinine Clr Calc Saptpkzz609.38NoFormerly [facility] Physician GroupComment on above:Order Comment: STAT FOR CTResult Comment: PERFORMED BY: [facility] [place] [address] PATHOLOGIST AIRPORT RAMP SUPERVISOR KVNG HENDERSON M.D.Performed By: #### CREAT, BUN #### [facility] [address] [place] [address] USAGFR/1.73 sq M.predicted MDRD (S/P/Bld) [Vol rate/Area] mL/min/{1.73_m2}NormalThe Formerly [facility] Physician GroupComment on above:Order Comment: STAT FOR CTPerformed By: #### CREAT, BUN #### [facility] [address] [place] [id number] USACreatinine [Mass/volume] in Serum or PlasmaOrdered By: Jane Woo on 80-27-3042Pttvceakqo [Mass/Vol]0.49 mg/dLLow0.60-1.20[facility] County Medical CenterComment on above:Order Comment: STAT FOR CTPerformed By: #### CREAT, BUN #### [facility] [address] [place] [address] USAMycobacterium tuberculosis stimulated gamma interferon [Interpretation] in Blood QualOrdered By: Leodan Patricia on 04-18-2025M. tuberculosis stim IFN-g Ql (Bld) [Interp]NegativeNegativeAshtabula County Medical CenterComment on above:No response to M tuberculosis antigens detected.Infection with M tuberculosis is unlikely, but highriskindividuals should be considered for additional testing(ATS/IDSA/CDC Clinical Practice Guidelines, 2017). Thereference range is an Antigen minus Nil result of <0.35IU/mL.The specimen received for QuantiFERON testing was incubatedby the ordering institution. Specific procedures outlinedin ourDirectory of Services and in the package insert forthe QuantiFERON Gold (In Tube) test must be follo wed toenable for proper stimulation of cells for the productionof interferon gamma. Chemiluminescence immunoassaymethodologyPerformed at: CB - [facility] [address] [id number] Director: Daniel Wen PhD, Phone: [phone] Panel InformationOrdered By: Enrique Pratt on 04-18-2025 Cell Gene Rearrange Director RevwComment.[facility] Comment on above:Technical Component performed at [facility] RTPProfessional Component performed by:Abhi Ray, PhD, FACMGDirector, Molecular OncologyEncompass Rehabilitation Hospital Of [facility] RTPDWYUD4, [address] [facility] [phone] T-Cell Gene MethodComment.[facility] County Medical CenterComment on above: Patient cellular DNA is subjected to polymerase chainreaction using 2 optimized primer sets that target multipleV and J exon regions within the T cell receptor gamma chaingene on chromosome 7. Rearrangements are detected byidentification of specific clonal amplicon productsfollowing electrophoresis. This PCR assay is capable ofdetecting a clonal population at a sensitivity of 5 clonalcells per 100 normal cells.T-Cell Gene Rearrange ReferencesComment.[facility] County Medical CenterComment on above:1. Rosendo Ramirez et al. Powerful strategy for polymerasechain reaction-based clonality assessment in T-cellmalignancies. Report of the BIOMED-2 Concerted ActionBH4 [id number]. Leukemia 2007: 21:215-22 1.2. Stevan VÁSQUEZ, et al. EuroClonality/BIOMED-2 guidelinesfor interpretation and reporting of Ig/TCR clonalitytesting in suspected lymphoproliferations. Rvsrknxj9188: 26:8882-2312.This test was developed and its performance characteristicsdetermined by [facility]. It has not been cleared or approvedbythe Food and Drug Administration.Performed at: [facility] [id number] [facility], [place], [place] [id number] Director: Van Delvalle [facility], Phone: [phone] T-Cell Subset InterpretationComment.[facility] County Medical CenterComment on above:NEGATIVE: No clonal T-cell receptor gamma (TCRG) populationwas detectedInterpretation of this result should be made in the contextof other clinical, morphologic, and immunophenotypicfindings. This PCR assay detects approximately 89% of T-cell clonal populations but as with all amplification basedassays, may not detect all possible T-cell receptor generearrangements. If significant suspicion of clonalityremains, T-cell receptor beta (TCRB, test code 403926) testis recommended. The combined T-cell clonality detectionrate of TCRG and TCRB is 94-99%. The T-cell receptor generearrangement panel (includung both TCRG and TCRB, testcode 420770) is available for parallel testing.No Panel InformationOrdered By: Leodan Patricia on 48-88-9351Cvbfsbnl InterpretationComment .[facility] County Medical CenterComment on above:Syphilis: RPR with Reflex to RPR Titer and Treponemal Antibodies, Traditional Screening and Diagnosis Algorithm TreponemalRPR RPR, Qn Ab Final Interpretation-------- --------- Non N/A N/A No laboratory evidenceReactive of syphilis. Retest in 2-4 weeks if recent exposure is suspected.-------- --------- -- -------- Reactive >/=1:1 Non Nontreponemal antibodies Reactive detected.Syphilis unlikely; biological false positive possible. Retest in 2-4 weeks if recent exposure is suspected.-------- --------- Reactive >/=1:1 Reactive Treponemaland nontreponemal antibodies detected. Consistent with past or current (potential early) syphilis.Performed at: [facility] [employer] [id number] Director: Daniel eWn PhD, Phone: [phone] Panel InformationOrdered By: Jane Woo on 52-41-6188Xvjdwpjsy GFR (CKD-EPI)> 60.0 mL/MinAshtabula County Medical CenterPharmacy Creatinine Clearance (Chem 142.38[facility] Medical CenterQuantiFERON TB Goldon 01-76-8239PEKD CriteriaCommentNormal.The [facility] Physician GroupComment on above:Result Comment: QuantiFERON-TB Gold Plus is a qualitative indirect test for M tuberculosis infection (including disease) and is intended for use in conjunction with risk assessment, radiography, and other medical and diagnostic evaluations. The QuantiFERON-TB Gold Plus result is determined by subtracting the Nil value from either TB antigen (Ag) value. The Mitogen tube serves as a control for the test.Performed By: #### CUU #### [place] [address] USAQuant TB Ag Value0.26Normal.[facility]ician Group Comment on above:Performed By: #### CUU #### [place] [address] USAQuant TB Gold PlusNegativeNormalNegativeThe [facility] Physician GroupComment on above:Result Comment: No response to M tuberculosis antigens detected. [...] interferon gamma. Chemiluminescence immunoassay methodology Performed at: [employer] [id number] Swage Toolsetter: Daniel Wen PhD, Phone: [phone] PERFORMED BY: [place] [address] PATHOLOGIST AIRPORT RAMP SUPERVISOR KVNG HENDERSON M.D.Performed By: #### CUU #### [place] [address] USAQuant TB2 Ag Value0.17Normal.[facility] Comment on above:Performed By: #### CUU #### [place] [address] USAQuantiferon Nil Value0.06Normal.The [facility] Physician GroupComment on above:Performed By: #### CUU #### [facility] [address] [place] [id number] USAQuantiferon TB Mitogen>10.00Normal.The [facility] Physician GroupComment on above:Performed By: #### CUU #### [facility] [address] [place] [address] USARPR w/rfx to Quant TP Abson [id number] Interpretation CommentNormal.The [facility] Physician GroupComment on above:Result Comment: Syphilis: RPR with Reflex to RPR Titer [...] or current (potential early) syphilis. Performed at: [address], [place] [id number] Swage Toolsetter: Daniel Wen PhD, Phone: [phone] PERFORMED BY: [place] [address] PATHOLOGIST AIRPORT RAMP SUPERVISOR KVNG HENDERSON M.D.Performed By: #### CUU #### [place] [address] USARPR, Rfx Quant RPRNon-ReactiveNormalNon ReactiveThe [facility] Physician GroupComment on above:Performed By: #### CUU #### [place] [address] USASerum RPR testOrdered By: Leodan Patricia on 04-18-2025 Reagin Ab RPR Ql (S)Non-ReactiveNon ReactiveAshtabula County Medical CenterT- Cell Gene Rearrangement, PCRon [id number] Review:CommentNormal.The [facility] Physician GroupComment on above:Result Comment: Technical Component performed at [facility] RT Professional Component performed by: Abhi Ray, PhD, [facility] Director, Molecular Oncology [facility] RTP DWYUD4, [address] [place] [address] Performed By: #### CUU #### [place] [address] USAMethodology:CommentNormal.[facility] Comment on above:Result Comment: Patient cellular DNA is subjected to polymerase [...] of 5 clonal cells per 100 normal cells.Performed By: #### CUU #### [place] [address] USAReferences:CommentNormal.[facility] Comment on above:Result Comment: 1. Rosendo Ramirez, et al. Powerful strategy for polymerase chain reaction-based clonality assessment in T-cell malignancies. Report of the BIOMED-2 Concerted Action [facility]4 [id number]. Leukemia 2007: 21:215-221. 2. Stevan VÁSQUEZ, et al. EuroClonality/BIOMED-2 guidelines for interpretation and reporting of Ig/TCR clonality testing in suspected lymphoproliferations. Leukemia 2012: 26:9531-4322. This test was developed and its performance characteristics determined by [employer]. It has not been cleared or approved by the Food and Drug Administration. Performed at: [facility] RTP [address] [facility], [facility], [place] [id number] Swage Toolsetter: Van Delvalle [facility], Phone: [phone] PERFORMED BY: [place] [address] PATHOLOGIST AIRPORT RAMP SUPERVISOR KVNG HENDERSON M.D.Performed By: #### CUU #### [place] [address] USAT-Cell PCR InterpretationCommentNormal.The [facility] Physician GroupComment on above:Result Comment: NEGATIVE: No clonal T-cell receptor gamma (TCRG) [...] remains, T-cell receptor beta (TCRB, test code 689284) test is recommended. The combined T-cell clonality detection rate of TCRG and TCRB is 94-99%. The T-cell receptor gene rearrangement panel (includung both TCRG and TCRB, test code 014786) is available for parallel testing.Performed By: #### CUU #### [address] [address] USAUrea nitrogen [Mass/volume] in Serum or PlasmaOrdered By: Jane Woo on 06-70-9033Vwzh nitrogen [Mass/Vol]6 mg/dLLow04-27Ashtabula County Medical CenterComment on above:Order Comment: STAT FOR CTPerformed By: #### CREAT, BUN #### [place] [id number] USAWhole blood measurement of Mycobacterium tuberculosis stimulated gamma interferon relOrdered By: Leodan Patricia on 04-18-2025M. tuberculosis stim IFN-g by CD4+ CD8+ T-cells corrected for background Qn (Bld) 0.17 [IU]/mL.[facility]ula County Medical CenterANA Antinuclear Antibodieson 38-35-6492Ycnonfnrxcm Abs, IFANegativeNormal.The [facility] Comment on above:Result Comment: Negative <1:80 Borderline 1:80 Positive >1:80 ICAP nomenclature: AC-0 For more information about Hep-2 cell patterns use ANApatterns.org, the official website for the International Consensus on Antinuclear Antibody (BERTHA) Patterns (ICAP). Performed at: - [facility] [id number] Swage Toolsetter: Daniel Wen PhD, Phone: [phone] By: #### CBC #### [facility] [address] [place] [address] USAAmylase [Enzymatic activity/volume] in Serum or Plasma Ordered By: Enrique Pratt on 62-68-2970Dqivurk [Catalytic activity/Vol]25 U/L [address] Jones StreetComment on above:Performed By: #### HBSAB, HBSAG, BERTHA, KAMILLA, HBCAB, HAAB, HCV RX PCR, HIV SCREEN, RA #### [facility] , #### CRP, T4F, BCRABL NEOGENOM, FLOW NEOGENOMIC, WILLIAM 2 NEOGENOMI, KARINA, RAKESH, LIPASE, TSH3 #### [facility] [address] [place] [id number] USAAppearance of UrineOrdered By: Enrique Pratt on 80-25-8165Euuwmtxtov (U)CloudyAbnormalCleSamaritan North Health Center Comment on above:Order Comment: Name Collection Type:: Clean-Voided Midstream Performed By: #### ADDONUAPLUS #### [facility] [address] [place], [place] [id number] USABCR-ABL [employer] 92-29-7582PPH-ABL NeogenomicNormalThe [facility] Physician GroupComment on above:Result Comment: See report. Scanned copy available in EMR. PERFORMED BY: [place] [address] PATHOLOGIST AIRPORT RAMP SUPERVISOR KVNG HENDERSON M.D.Performed By: #### CBC #### [address] [address] USABacteria [Presence] in Urine by AutomatedOrdered By: Enrique Pratt on 75-25-6952Xvwdparm Auto Ql (U)1+ [HPF]HighNone SeenAshtabula County Medical CenterBasophils [#/volume] in Blood by Automated countOrdered By: Jane [facility] on 24-02-6331Sgtqtosgf (Bld) [#/Vol]0.1 10*3/uL0.0-0.2FEast Ohio Regional HospitalComment on above:Result Comment: PERFORMED BY: [place] [address] PATHOLOGIST AIRPORT RAMP SUPERVISOR KVNG HENDERSON M.D.Performed By: #### CBC #### [address] [address] USABasophils/100 leukocytes in Blood by Automated count Ordered By: Jane [facility] on 24-08-5926Mohnvslaj/100 WBC (Bld)0.9 %.Ashtabula County Medical CenterComment on above:Performed By: #### CBC #### [address] [address] USABilirubin Test strip Ql (U)Ordered By: Enrique Pratt on 61-45-6874Ivbjrfner Ql (U)NegativeNegativeAshtabula County Medical CenterC reactive protein [Mass/volume] in Serum or PlasmaOrdered By: Enrique Pratt on 89-37-6255UID [Mass/Vol]0.7 mg/dLHigh0.0-0.5FEast Ohio Regional HospitalC- Reactive Proteinon 46-74-5567J-Reactive Protein0.7 mg/dLHigh0.0-0.5The [facility] Physician GroupComment on above:Performed By: #### CREAT, BUN #### [place] [address] USAColor of Urine by AutoOrdered By: Enrique Pratt on 94-68-0236Kfxfk (U)Light-yellowYellowAshtabula County Medical CenterComment on above:Order Comment: Name Collection Type:: Clean-Voided MidstreamPerformed By: #### ADDONUAPLUS #### [place] [address] USAComplete Blood Count Auto Diffon 77-92-5733Bbzg Corpuscular HGB Conc34.0 g/mUDuivqk93.0-35.0The [facility] Physician GroupComment on above:Performed By: #### CBC #### [place] [address] USANRBC%0.1 /100{WBC}Normal0-0.5The [facility] Comment on above:Performed By: #### CBC #### [place] [address] USACortisolon 08-50-3311Locxmxwz3.7 ug/dLNormalThe [facility] Physician [facility] HospitalComment on above:Result Comment: Reference range: AM 6 - 24 ug/dl PM <10 ug/dl [facility] Laboratory boiler plant operator and method: myPizza.comEL DXI, POLYCLONAL ANTIBODY CORTISOL ASSAY. PERFORMED BY: [place] [address] PATHOLOGIST AIRPORT RAMP SUPERVISOR KVNG HENDERSON M.D.Performed By: #### CREAT, BUN #### [place] [address] USACortisol [Mass/volume] in Serum or PlasmaOrdered By: Enrique Pratt on 96-72-4214Kufcgcvm [Mass/Vol]6.7 ug/dLAshtabula County Medical CenterComment on above:[facility] Laboratory boiler plant operator and method:[employer] UNICEL DXI, POLYCLONAL ANTIBODY CORTISOL ASSAY.Reference range: AM 6 - 24 ug/dl PM <10 ug/dlDipstick and Microscopicon 37-23-4641Kgyafgzp,Urine1+HighNone Seen The [facility] Physician GroupComment on above:Order Comment: Name Collection Type:: Clean-Voided MidstreamPerformed By: #### ADDONUAPLUS #### [place] [address] USABilirubin,UrineNegativeNormalNegativeSouth Miami Hospital Physician GroupComment on above:Order Comment: Name Collection Type:: Clean- Voided MidstreamPerformed By: #### ADDONUAPLUS #### [place] [address] USAGlucose Ql (U)NormalNormalNormalThe [facility] Physician GroupComment on above:Order Comment: Name Collection Type:: Clean-Voided MidstreamPerformed By: #### ADDONUAPLUS #### [place] [address] USAHyaline Casts,UrineNoneNormal0-8The [facility] Physician GroupComment on above:Order Comment: Name Collection Type:: Clean-Voided MidstreamPerformed By: #### ADDONUAPLUS #### [place] [address] USAMucus,UrineRareNormalThe [facility] Physician GroupComment on above:Order Comment: Name Collection Type:: Clean-Voided MidstreamResult Comment: PERFORMED BY: [place] [address] PATHOLOGIST AIRPORT RAMP SUPERVISOR KVNG HENDERSON M.D.Performed By: #### ADDONUAPLUS #### [place] [address] USANitrite,UrineNegativeNormalNegativeSouth Miami Hospital Physician GroupComment on above:Order Comment: Name Collection Type:: Clean-Voided MidstreamPerformed By: #### ADDONUAPLUS #### [place] [id number] USAOccult Blood,UrineNegativeNormalNegativeSouth Miami Hospital Physician GroupComment on above:Order Comment: Name Collection Type:: Clean- Voided MidstreamResult Comment: PERFORMED BY: [place] [address] PATHOLOGIST AIRPORT RAMP SUPERVISOR KVNG HENDERSON M.D.Performed By: #### ADDONUAPLUS #### [place] [address] USAProtein,UrineNegativeNormalNegativeSouth Miami Hospital Physician GroupComment on above:Order Comment: Name Collection Type:: Clean-Voided MidstreamPerformed By: #### ADDONUAPLUS #### [place] [address] USARBC,Cqgiu5-4Xtmtlg8-8Gmx [facility] Physician GroupComment on above:Order Comment: Name Collection Type:: Clean-Voided MidstreamPerformed By: #### ADDONUAPLUS #### [place] [address] USASpecificy [place],Urine1.359Fxrqjg2.001-1.030The [facility] Physician GroupComment on above:Order Comment: Name Collection Type:: Clean- Voided MidstreamPerformed By: #### ADDONUAPLUS #### [place] [address] USASquamous Epithelial Cell,Matap27-80Yvji6-1Cws [facility] Physician GroupComment on above:Order Comment: Name Collection Type:: Clean- Voided MidstreamPerformed By: #### ADDONUAPLUS #### [place] [address] USAUrobilinogen,UrineNormalNormalNormalThe [facility] Physician GroupComment on above:Order Comment: Name Collection Type:: Clean- Voided MidstreamPerformed By: #### ADDONUAPLUS #### [place] [address] USAWBC,Yjqps9-9Zykhmh2-6Yki [facility] Physician GroupComment on above:Order Comment: Name Collection Type:: Clean-Voided MidstreamPerformed By: #### ADDONUAPLUS #### [place] [address] USAEosinophils [#/volume] in Blood by Automated countOrdered By: Jane [facility] on 64-42-3503Qdunbaubaky (Bld) [#/Vol]0.1 10*3/uL0.0-0.45 [facility] County Medical CenterComment on above:Performed By: #### CBC #### [facility] [address] [place] [address] USAEosinophils/100 leukocytes in Blood by Automated count Ordered By: Jane [facility] on 89-68-2304Ozgrrarnrgw/100 WBC (Bld)0.4 %.Asht[facility] County Medical CenterComment on above:Performed By: #### CBC #### [facility] [address] [place] [address] USAEpithelial cells.squamous [#/area] in Urine sediment by Automated countOrdered By: Enrique Pratt on 98-19-5916Teypbglgie cells.squamous Auto (Urine sed) [#/Area]10-19 [HPF]High0-2FEast Ohio Regional Hospital Erythrocyte distribution width [Ratio] by Automated countOrdered By: Jane [facility] on 94-77-6472Zoxlvffxpjr distribution width (RBC) [Ratio]13.7 %11.9-15.3 [facility] County Medical CenterComment on above:Performed By: #### CBC #### [place] [address] USAErythrocytes [#/area] in Urine sediment by Automated count Ordered By: Enrique Pratt on 78-90-5938ZRE Auto (Urine sed) [#/Area]1-2 [HPF] 0-4FEast Ohio Regional HospitalErythrocytes [#/volume] in Blood by Automated countOrdered By: Jane [facility] [place] 70-07-5136BMA (Bld) [#/Vol]5.02 10*6/uLHigh3.60-5.00As[facility] County Medical CenterComment on above:Performed By: #### CBC #### [place] [address] USAFlowcytometry [employer] 46-39-1765Fmvqmmfgqowxb Neogenomic.NormalThe [facility] Physician GroupComment on above:Result Comment: See report. Scanned copy available in EMR.Performed By: #### CBC #### [address] [place] [address] USAGlucose [Mass/volume] in Urine by Test stripOrdered By: Enrique Pratt on 45-73-9622Obinuvs Test strip (U) [Mass/Vol]Normal mg/dLNormal [facility] County Medical CenterHIV 1/O/2 Antigen/Antibodyon 74-68-8692MUR Screen 4th GenerationNon-ReactiveNormalNon ReactiveThe [facility] Comment on above:Result Comment: HIV-1/HIV-2 antibodies and HIV-1 p24 antigen were NOT detected. There is no laboratory evidence of HIV infection. HIV Negative Performed at: - [facility] [id number] Swage Toolsetter: Daniel Wen PhD, Phone: [phone] PERFORMED BY: [place] [address] PATHOLOGIST AIRPORT RAMP SUPERVISOR KVNG HENDERSON M.D.Performed By: #### CBC #### [place] [address] USAHematocrit [Volume Fraction] of Blood by Automated count Ordered By: Jane [facility] on 09-03-2605Dwmzmxgdea (Bld) [Volume fraction]44.0 % 34.0-46.4FEast Ohio Regional HospitalComment on above:Performed By: #### CBC #### [place] [id number] USAHemoglobin Test strip Ql (U)Ordered By: Enrique Pratt on 74-58-1005Iypzaooeiz Ql (U)NegativeNegativeAshtabula County Medical Center Hemoglobin [Mass/volume] in BloodOrdered By: [facility] on 03-14-2025 Hemoglobin (Bld) [Mass/Vol]15.0 g/dL11.8-15.4FEast [facility] Hospital Comment on above:Performed By: #### CBC #### [place] [id number] USAHep C Ab wRfx to Qnt PCRon 26-98-2660Zcldxqqup C Virus AntibodyNon-ReactiveNormalNon ReactiveThe [facility] Physician GroupComment on above:Performed By: #### CREAT, BUN #### [place] [address] USAInterpretation Hepatitis CCommentNormal.The [facility] Physician GroupComment on above:Result Comment: Not infected with HCV unless early or acute infection is suspected (which may be delayed in an immunocompromised individual), or other evidence exists to indicate HCV infection.Performed By: #### CREAT, BUN #### [place] [address] USAHepatitis A Antibody IgMon 99-12-1997Nwywxlkvd A Antibody IgMNegativeNormalNegativeThe [facility] Physician GroupComment on above:Result Comment: A negative anti-HAV IgM result suggests no recent or current HAV infection. Performed at: [facility] [id number] Swage Toolsetter: Daniel Wen PhD, Phone: [phone] By: #### CREAT, BUN #### [place] [address] USAHepatitis B Core Antibodyon 36-45-8126Tkexbtqmv B Core AntibodyNegativeNormalNegativeThe [facility] Physician GroupComment on above: Performed By: #### CREAT, BUN #### [place] [address] USAHepatitis B Surface Antibodyon 72-06-5763Snkqlatqv B Surface AntibodyNon-ReactiveNormal.The [facility] Physician GroupComment on above:Result Comment: Non Reactive: Not immune to HBV infection. Equivocal: Unable to determine if anti-HBs is present at levels consistent with immunity. Reactive: Anti-HBs concentration detected at greater than 10 mIU/mL. Individual is considered to be immune to infection with HBV.Performed By: #### CREAT, BUN #### [place] [address] USAHepatitis B Surface Antigenon 20-45-2165JKyYa Screen NegativeNormalNegativeThe [facility] Physician GroupComment on above:Result Comment: PERFORMED BY: [place] [address] PATHOLOGIST AIRPORT RAMP SUPERVISOR KVNG HENDERSON M.D.Performed By: #### CREAT, BUN #### [facility] [address] [place] [address] USAHepatitis C virus IgG Ab [Presence] in Serum or Plasma by ImmunoassayOrdered By: Enrique Pratt on 02-86-7977SIY IgG IA QlNon-ReactiveNon ReactiveAshtabula County Medical CenterHyaline casts [#/area] in Urine sediment by Automated countOrdered By: Enrique Pratt on 07-82-8915Lytwhqi casts Auto (Urine sed) [#/Area]None [LPF]0-8As[facility] County Medical CenterJAK 2 [employer] 13-14-0130OIF 2 [facility] Comment on above:Result Comment: See report. Scanned copy available in EMR. Performed By: #### CBC #### [facility] [address] [place] [address] USAKetones [Presence] in Urine by Test stripOrdered By: Enrique Pratt on 99-28-4320Jfqdspi Ql (U)NegativeNegativeAshtabula County Medical CenterComment on above:Order Comment: Name Collection Type:: Clean-Voided MidstreamPerformed By: #### ADDONUAPLUS #### [facility] [address] [place] [address] USALeukocyte esterase [Presence] in Urine by Test strip Ordered By: Enrique Pratt on 60-52-3555Bhyjhlvvm esterase Test strip Ql (U) NegativeNegRegency Hospital CompanyComment on above:Order Comment: Name Collection Type:: Clean-Voided MidstreamPerformed By: #### ADDONUAPLUS #### [facility] [address] [place] [address] USALeukocytes [#/area] in Urine sediment by Automated count Ordered By: Enrique Pratt on 86-04-8558ENX Auto (Urine sed) [#/Area]1-2 [HPF] 0-4FEast Ohio Regional HospitalLeukocytes [#/volume] corrected for nucleated erythrocytes in Blood by Automated counOrdered By: [facility] on 52-43-0714YAJ corrected for nucl RBC Auto (Bld) [#/Vol]15.3 10*3/uLHigh3.8-11.6 [facility] Medical CenterLeukocytes [#/volume] in Blood by Automated countOrdered By: [facility] on 49-68-8814GRQ (Bld) [#/Vol]15.3 10*3/uLHigh 3.8-11.6FEast Ohio Regional HospitalComment on above:Performed By: #### CBC #### [facility] [address] [place] [address] USALipase [Enzymatic activity/volume] in Serum or Plasma Ordered By: Enrique Pratt on 42-06-9420Yihsiq [Catalytic activity/Vol]43.0 U/L 11.0-82.0As[facility] County Medical CenterComment on above:Performed By: #### HBSAB, HBSAG, BERTHA, KAMILLA, HBCAB, HAAB, HCV RX PCR, HIV SCREEN, RA #### [facility] , #### CRP, T4F, BCRABL NEOGENOM, FLOW NEOGENOMIC, WILLIAM 2 NEOGENOMI, KARINA, RAKESH, LIPASE, TSH3 #### [facility] [address] [place] [address] USALymphocytes [#/volume] in Blood by Automated countOrdered By: [facility] on 50-40-9930Uhawjudlvlp (Bld) [#/Vol]4.3 10*3/uL1.00-4.8 [facility] County Medical CenterComment on above:Performed By: #### CBC #### [facility] [address] [place] [address] USALymphocytes/100 leukocytes in Blood by Automated count Ordered By: [facility] on 68-17-2821Kqhlmpflczc/100 WBC (Bld)28.0 %.[facility] County Medical CenterComment on above:Performed By: #### CBC #### [facility] [address] [place] [address] USAMCH [Entitic mass] by Automated countOrdered By: [facility] on 97-86-1613OCF (RBC) [Entitic mass]29.8 pg24.7-34.3FEast Ohio Regional HospitalComment on above:Performed By: #### CBC #### [facility] [address] [place], [place] [address]HC Auto (RBC) [Mass/Vol]Ordered By: [facility] on 14-78-4543OJDY (RBC) [Mass/Vol]34.0 g/dL32.0-35.0As[facility] County Medical CenterMCV [Entitic volume] by Automated countOrdered By: [facility] on 17-49-2282FYZ (RBC) [Entitic vol]87.7 lL88-483SiqyrklmrAshtabula County Medical Center Comment on above:Performed By: #### CBC #### [facility] [address] [place] [address] USAMonocytes [#/volume] in Blood by Automated countOrdered By: [facility] on 50-17-4900Pyzigdeuj (Bld) [#/Vol]1.2 10*3/uLHigh0.0-0.8 [facility] Medical CenterComment on above:Performed By: #### CBC #### [facility] [address] [place] [address] USAMonocytes/100 leukocytes in Blood by Automated count Ordered By: [facility] on 28-15-7438Nisdvuuxe/100 WBC (Bld)8.1 %.[facility] County Medical CenterComment on above:Performed By: #### CBC #### [facility] [address] [place] [address] USAMucus [Presence] in Urine by AutomatedOrdered By: Enrique Trivedi on 56-22-2277Gwieq Auto Ql (U)Rare [LPF][facility] Medical CenterNeutrophils [#/volume] in Blood by Automated countOrdered By: [facility] on 71-33-4082Arsspzaudxv (Bld) [#/Vol]9.6 10*3/uLHigh1.8-7.7FEast Ohio Regional HospitalComment on above:Performed By: #### CBC #### [facility] [address] [place] [address] USANeutrophils/100 leukocytes in Blood by Automated count Ordered By: Jane [facility] on 92-85-9509Cnyguvlvacz/100 WBC (Bld)62.6 %.[facility] County Medical CenterComment on above:Performed By: #### CBC #### [facility] [address] [place] [address] USANitrite Test strip Ql (U)Ordered By: Enrique Pratt on 02-20-4338Dxajohh Ql (U)NegativeNegativeAshtabula County Medical CenterNo Panel InformationOrdered By: Enrique Pratt on 56-17-9964ABS/ablSee comment [facility] Medical CenterComment on above:See report. Scanned copy available in EMR.Hepatitis C InterpretationComment.[facility] County Medical CenterComment on above:Not infected with HCV unless early or acute infection issuspected (which may be delayed in an immunocompromisedindividual), or other evidence exists to indicate HCVinfection.JAK2 A311JDmo commentAshtabula County Medical CenterComment on above:See report. Scanned copy available in EMR. Nucleated erythrocytes [Presence] in Blood by Automated countOrdered By: Jane [facility] on 90-80-3898Lkghzxxiz RBC Auto Ql (Bld)0.1 /100{WBC}0-0.5FEast Ohio Regional HospitalPlatelet mean volume [Entitic volume] in Blood by Automated countOrdered By: Jane [facility] on 21-11-1112Mfuecgre mean volume (Bld) [Entitic vol]7.9 fL6.3-10.7FEast Ohio Regional HospitalComment on above: Performed By: #### CBC #### [facility] [address] [place] [address] USAPlatelets [#/volume] in Blood by Automated countOrdered By: Jane [facility] on 34-00-0753Hjiclkzoh (Bld) [#/Vol]253 10*3/cN949-658YftczepimAshtabula County Medical CenterComment on above:Performed By: #### CBC #### [facility] [address] [place] [address] USAProtein Test strip (U) [Mass/Vol]Ordered By: Enrique Trivedi on 83-41-1814Ekbxsmo (U) [Mass/Vol]NegativeNegativeAshtabula County Medical CenterRheumatoid Factoron 96-68-8005Jghietmhux Djrond86.0 [IU]/mLNormal <14.0The [facility] Physician GroupComment on above:Result Comment: Performed at: [facility] [place]LandBrad[place] [address] Swage Toolsetter: Daniel Wen PhD, Phone: [phone] By: #### CBC #### [facility] [address] [place] [address] USASerum angiotensin converting enzyme (KAMILLA) measurement Ordered By: Enrique Pratt on 43-39-7348Vdltliehcbr converting enzyme [Catalytic activity/Vol]45 U/I10-54HjupiichlAshtabula County Medical CenterComment on above: Performed at: [facility] [place]LandRe[place] [address]Lab Director: Daniel Wen PhD, Phone: [phone] Comment: Performed at: [facility] [place] [address] Swage Toolsetter: Daniel Wen PhD, Phone: [phone] By: #### CREAT, BUN #### [facility] [address] [place], [place] [address] USASerum hepatitis B virus surface antibody detectionOrdered By: Enrique Pratt on 81-76-2703VTR surface Ab Ql (S)Non-Reactive.[facility] Medical CenterComment on above:Non Reactive: Not immune to HBV infection. Equivocal: Unable to determine if anti-HBs is present atlevels consistent with immunity. Reactive: Anti-HBs concentration detected at greater than 10 mIU/mL. Individual is considered to be immune to infection with HBV. Serum homogeneous pattern antinuclear antibody (BERTHA) titerOrdered By: Enrique Trivedi on 96-24-6863Uorovrlxol nuclear Ab pattern (S) [Titer]N/AFCherrington Hospitalerum nuclear antibody titerOrdered By: Enrique Pratt on 10-87-0724Zjlsmin Ab (S) [Titer]Negative.[facility] Comment on above:Negative <1:80 Borderline 1:80 Positive >1:80ICAP nomenclature: AC-0For more information about Hep-2 cell patterns useANApatterns.org, the official website for theInternational Consensus on Antinuclear Antibody (BERTHA)Patterns (ICAP).Performed at: [id number] Director: Daniel Wen PhD, Phone: [phone] or plasma hepatitis B virus surface antigen detection by immunoassayOrdered By: Enrique Trivedi on 63-25-3272MVR surface Ag IA QlNegativeNegativeMercy Health Perrysburg Hospitalerum or plasma rheumatoid factor measurement (units/volume) Ordered By: Enrique Pratt on 40-47-7538Yljvtacwhz factor Qn11.0 [IU]/mL<14.0 [facility] Medical CenterComment on above:Performed at: [employer] [id number] Director: Daniel Wen PhD, Phone: [phone] gravity Test strip (U) [Rel density]Ordered By: Enrique Pratt on 02-40-7978Fgnabvwn gravity (U) [Rel density]1.0111.001-1.030 [facility] Medical CenterThyrotropin [Units/volume] in Serum or Plasma Ordered By: Enrique Pratt on 64-54-4921XJM Qn1.88 m[IU]/L0.45-5.33[facility] Medical CenterComment on above:Performed By: #### CREAT, BUN #### [facility] [address] [place] [address] USAThyroxine (T4) free [Mass/volume] in Serum or Plasma Ordered By: Enrique Pratt on 35-27-6043Bpaj T4 [Mass/Vol]0.69 ng/dL0.61-1.12 [facility] Medical CenterComment on above:Performed By: #### CREAT, BUN #### [facility] [address] [id number] USAUrobilinogen Test strip (U) [Mass/Vol]Ordered By: Enrique Trivedi on 56-50-4418Mbhgldmyllkg (U) [Mass/Vol]Normal mg/dLNormalAshtabula County Medical CenterpH of Urine by Test stripOrdered By: Enrique Pratt on 63-29-2875vO (U)5.5 [pH]5.0-9.0Ashtabula County Medical CenterComment on above:Order Comment: Name Collection Type:: Clean-Voided MidstreamPerformed By: #### ADDONUAPLUS #### [place] [id number] USAUS renal BIon 13-51-3737KP [facility] [place] [address] [place] [address] Ultrasound Report Signed Patient: Rachel Mcgarry MR#: [id number] 1 : 1980 Acct:[id number] Age/Sex: 45 / F ADM Date: 03/06/25 Loc: Room: Type: [facility] Attending Dr: Ajit DEJESUS Ordering Provider: OLEG Sharp Date of Service: 03/06/25 US/US renal BI: Recurrent UTI;Sensation of pressure in bladder area;[employer] Copies to: OLEG Sharp BILATERAL RENAL AND [...] Yañez M.D. 03/06/2025 12:58 PM Dictation Location: [place] [address] Tech: Janet Krause Transcribed By: ROSA MARIA 03/06/25 1258 Dictated By: Eda Yañez MD 03/06/25 1258 Signed By: 03/06/25 1258[facility] Physician GroupUS venous duplex LE BIon 91-74-3614VU venous duplex LE [facility] [address] [place] [id number] Ultrasound Report Signed Patient: Rachel Mcgarry MR#: [id number] 1 : 1980 Acct:[id number] Age/Sex: 45 / F ADM Date: 03/06/25 Loc: Room: Type: [facility] Attending Dr: Ajit DEJESUS Ordering Provider: [...] Goss MD,FACS,FSVS 03/06/2025 1:25 PM Dictation Location: [facility]04 Tech: Janet Krause Transcribed By: ROSA MARIA 03/06/25 1325 Dictated By: Marcio Goss MD 03/06/25 1325 Signed By: 03/06/25 1325[facility] Physician GroupUrine Cultureon 02-26-2025 Bacteria identified Cx Nom (U)20,000 colonies/ml mixed bacterial skin contaminants 2 Days PERFORMED BY: [place] [address] PATHOLOGIST AIRPORT RAMP SUPERVISOR KVNG HENDERSON M.D.[facility] Medical CenterComment on above: Performed By: #### CBC #### [facility] [address] [id number] USAUrine cultureOrdered By: Ambrose Cedeño on 06-51-3306Dwanohld identified Cx Nom (U)Urine cultureAshtabula County Medical CenterBacteria identified Cx Nom (U)2 DaysAshtabula County Medical CenterA1C with Estimated Average Gluon 72-89-4253Obbqxbm [Mass/Vol]137 mg/dLNormSouth Florida Baptist Hospital Physician GroupComment on above:Order Comment: Reason for Exam Type 2 diabetes mellitus without complication, without long-Result Comment: PERFORMED BY: [place] [address] PATHOLOGIST AIRPORT RAMP SUPERVISOR MAURO ELLSWORTH M.D.Performed By: #### CUU #### [place] [id number] USAAlanine aminotransferase [Enzymatic activity/volume] in Serum or PlasmaOrdered By: Ajit Pettit on 19-46-6623UGX [Catalytic activity/Vol]Alanine aminotransferase [Enzymatic activity/volume] in Serum or PlasmaAshtabula County Medical CenterALT [Catalytic activity/Vol]11 U/L Normal[address] [place], [place] [address]Comment on above:Order Comment: Reason for Exam Type 2 diabetes mellitus without complication, without long- Reason for Exam Hypercholesterolemia Reason for Exam Vitamin D deficiency Performed By: #### CBC #### [facility] [address] [place], [place] [id number] USAAlbumin [Mass/volume] in Serum or Plasma by Bromocresol green (BCG) dye binding methoOrdered By: Ajit Pettit on 40-27-8246Bttnzov BCG dye [Mass/Vol]Albumin [Mass/volume] in Serum or Plasma by Bromocresol green (BCG) dye binding metho3.5-5.7FEast Ohio Regional HospitalAlbumin BCG dye [Mass/Vol]4.6 g/dL3.5-5.7FEast Ohio Regional HospitalAlkaline phosphatase [Enzymatic activity/volume] in Serum or PlasmaOrdered By: Ajit Pettit on 95-28-0456ZRT [Catalytic activity/Vol]Alkaline phosphatase [Enzymatic activity/volume] in Serum or Gdizgs76-436Kwmatvohy[address] [place], [place] [address]ALP [Catalytic activity/Vol]55 U/SFdihdo78-579Eyabafjqt[address] Comment on above:Order Comment: Reason for Exam Type 2 diabetes mellitus without complication, without long- Reason for Exam Hypercholesterolemia Reason for Exam Vitamin D deficiencyPerformed By: #### CBC #### [facility] [address] [place] [address] USAAspartate aminotransferase [Enzymatic activity/volume] in Serum or PlasmaOrdered By: Ajit Pettit on 88-28-2993SIU [Catalytic activity/Vol]Aspartate aminotransferase [Enzymatic activity/volume] in Serum or Wukefs88-10Kxqxcwlpd[address]AST [Catalytic activity/Vol]14 U/L Ssfiaz33-43Bqbwiwvlo[address] [place], [place] [address]Comment on above:Order Comment: Reason for Exam Type 2 diabetes mellitus without complication, without long- Reason for Exam Hypercholesterolemia Reason for Exam Vitamin D deficiency Performed By: #### CBC #### [facility] [address] [place] [address] USABasophils Auto (Bld) [#/Vol]Ordered By: Ajit Pettit on 47-89-2545Eybiolops (Bld) [#/Vol]Automated basophil count0.0-0.2FEast Ohio Regional HospitalBasophils [#/volume] in Blood by Automated countOrdered By: Ajit Millanc on 14-05-4420Hhcxnkqej (Bld) [#/Vol]0.1 10*3/uLNormal0.0-0.2 [facility] County Medical CenterComment on above:Order Comment: Reason for Exam Type 2 diabetes mellitus without complication, without long-Result Comment: PERFORMED BY: [facility] [address] [address] [id number] PATHOLOGIST AIRPORT RAMP SUPERVISOR MAURO ELLSWORTH M.D.Performed By: #### CBC #### [facility] [address] [place] [address] USABasophils/100 WBC Auto (Bld)Ordered By: Ajit Pettit on 00-33-4595Myfipggds/100 WBC (Bld)Automated basophil %.Ashtabula County Medical CenterBasophils/100 leukocytes in Blood by Automated countOrdered By: Ajit Pettit on 13-04-7545Itsqdtxaq/100 WBC (Bld)0.8 %Normal.[facility] County Medical CenterComment on above:Order Comment: Reason for Exam Type 2 diabetes mellitus without complication, without long-Performed By: #### CBC #### [facility] [address] [place] [address] USABilirubin.total [Mass/volume] in Serum or PlasmaOrdered By: Ajit Pettit on 60-78-9426Qaizpofjn [Mass/Vol]Bilirubin.total [Mass/volume] in Serum or Plasma0.3-1.0As[facility]ula County Medical CenterBilirubin [Mass/Vol] 0.4 mg/dLNormal0.3-1.0As[facility] County Medical CenterComment on above:Order Comment: Reason for Exam Type 2 diabetes mellitus without complication, without long- Reason for Exam Hypercholesterolemia Reason for Exam Vitamin D deficiency Performed By: #### CBC #### [facility] [address] [place] [address] USABlood estimated average glucose determination by estimation from glycated hemoglobinOrdered By: Ajit Pettit on 18-78-4769Bhnyeuu glucose Estimated from glycated hemoglobin (Bld) [Mass/Vol]Glucose mean value [Mass/volume] in Blood Estimated from glycated hemoglobinAshtabula County Medical CenterAverage glucose Estimated from glycated hemoglobin (Bld) [Mass/Vol]137 mg/dLAshtabula County Medical CenterCalcium [Mass/volume] in Serum or PlasmaOrdered By: Ajit Pettit on 15-68-1936Lisvdzo [Mass/Vol]Calcium [Mass/volume] in Serum or Plasma8.6-10.3FEast Ohio Regional HospitalCalcium [Mass/Vol]9.7 mg/dLNormal8.6-10.3FEast Ohio Regional HospitalComment on above:Order Comment: Reason for Exam Type 2 diabetes mellitus without complication, without long- Reason for Exam Hypercholesterolemia Reason for Exam Vitamin D deficiencyPerformed By: #### CBC #### [facility] [address] [place] [address] USACarbon dioxide, total [Moles/volume] in Serum or Plasma Ordered By: Ajit Pettit on 61-34-7742TB6 [Moles/Vol]Carbon dioxide, total [Moles/volume] in Serum or Bqnjmu55.0-31.0As[facility] County Medical CenterCO2 [Moles/Vol]27.8 mmol/PLjmwoc41.0-31.0[facility] County Medical CenterComment on above:Order Comment: Reason for Exam Type 2 diabetes mellitus without complication, without long- Reason for Exam Hypercholesterolemia Reason for Exam Vitamin D deficiencyPerformed By: #### CBC #### [facility] [address] [place] [address] USAChloride [Moles/volume] in Serum or PlasmaOrdered By: Ajit Pettit on 21-47-3571Qjxsovtc [Moles/Vol]Chloride [Moles/volume] in Serum or StsvknVwh02-605SkxjzhitmAshtabula County Medical CenterChloride [Moles/Vol]96 mmol/L Qob65-147UwcnhzjtpAshtabula County Medical CenterComment on above:Order Comment: Reason for Exam Type 2 diabetes mellitus without complication, without long- Reason f or Exam Hypercholesterolemia Reason for Exam Vitamin D deficiencyPerformed By: #### CBC #### [facility] [address] [place] [address] USACholesterol [Mass/volume] in Serum or PlasmaOrdered By: Ajit Pettit on 55-05-1220Vxrygwbqjsv [Mass/Vol]Cholesterol [Mass/volume] in Serum or RflobcZuwq069-168QzsxgvencAshtabula County Medical CenterComment on above:Chol less than 200 mg/dl low riskChol 201-239 mg/dl borderline riskChol 240 mg/dl and greater high riskCholesterol [Mass/Vol]212 mg/mBYexl481-421IvwrgdvkdAshtabula County Medical CenterComment on above:Chol less than 200 mg/dl low riskChol 201-239 mg/dl borderline riskChol 240 mg/dl and greater high riskOrder Comment: Reason for Exam Type 2 diabetes mellitus without complication, without long- Reason for Exam Hypercholesterolemia Reason for Exam Vitamin D deficiencyResult Comment: Chol less than 200 mg/dl low risk Chol 201-239 mg/dl borderline risk Chol 240 mg/dl and greater high riskPerformed By: #### CBC #### [facility] [address] [place] [address] USACholesterol in HDL [Mass/volume] in Serum or PlasmaOrdered By: Ajit Pettit on 59-25-5206Yjnybjiruhm in HDL [Mass/Vol]Serum or plasma high density lipoprotein (HDL) cholesterol nypzjednylo03-21XfaesobhdAshtabula County Medical CenterComment on above:HDL CHOL ATP-III CLASSIFICATION Cardiovascular RiskHDL > or equal to 60 mg/dL LOWHDL < 40 mg/dL HIGHCholesterol in HDL [Mass/Vol]47 mg/oOEdcnub46-78WlsuhwiokAshtabula County Medical CenterComment on above: HDL CHOL ATP-III CLASSIFICATION Cardiovascular RiskHDL > or equal to 60 mg/dL LOWHDL < 40 mg/dL HIGHOrder Comment: Reason for Exam Type 2 diabetes mellitus without complication, without long- Reason for Exam Hypercholesterolemia Reason for Exam Vitamin D deficiencyResult Comment: HDL CHOL ATP-III CLASSIFICATION Cardiovascular Risk HDL > or equal to 60 mg/dL LOW HDL < 40 mg/dL HIGHPerformed By: #### CBC #### [facility] [address] [place] [address] USACholesterol in LDL Calc [Mass/Vol]Ordered By: Ajit Pettit on 85-53-2910Reewynuwmjx in LDL [Mass/Vol]Cholesterol in LDL [Mass/volume] in Serum or Plasma by calculationJackson General Hospital0Ashtabula County Medical CenterComment on above:LDL ATP III CLASSIFICATIONLDL less than 100 mg/dL OptimalLDL 100-129 mg/dL Near or above htmfyitHHM303-823 mg/dL Borderline highLDL 160-189 mg/dL HighLDL greater than 189 mg/dL Very highCholesterol in LDL [Mass/Vol]102 mg/dL High017 Kelly StreetComment on above:LDL ATP III CLASSIFICATIONLDL less than 100 mg/dL OptimalLDL 100-129 mg/dL Near or above invrzquIJP318-082 mg/dL Borderline highLDL 160-189 mg/dL HighLDL greater than 189 mg/dL Very highCholesterol in VLDL Calc [Mass/Vol]Ordered By: Ajit Pettit on 88-63-7354Rtpsdhvsqvm in VLDL [Mass/Vol]Cholesterol in VLDL [Mass/volume] in Serum or Plasma by calculationAshtabula County Medical CenterCholesterol in VLDL [Mass/Vol]62 mg/dLAshtabula County Medical CenterComplete Blood Count Auto Diffon 32-88-8390Akft Corpuscular HGB Conc34.1 g/iKGlsrvl72.0-35.0The [facility] Physician GroupComment on above:Order Comment: Reason for Exam Type 2 diabetes mellitus without complication, without long-Performed By: #### CBC #### [facility] [address] [place] [address] USANRBC%0.0 /100{WBC}Normal0-0.5The [facility] Comment on above:Order Comment: Reason for Exam Type 2 diabetes mellitus without complication, without long-Performed By: #### CBC #### [facility] [address] [id number] USAComprehensive Metabolic Panelon 62-28-7632Gxuuixx [Mass/Vol]4.6 g/dLNormal3.5-5.7The [facility] Physician GroupComment on above: Order Comment: Reason for Exam Type 2 diabetes mellitus without complication, without long- Reason for Exam Hypercholesterolemia Reason for Exam Vitamin D deficiencyPerformed By: #### CBC #### [facility] [address] [place] [address] USAGFR/1.73 sq M.predicted MDRD (S/P/Bld) [Vol rate/Area] mL/min/{1.73_m2}NormalThe Formerly [facility] Center Physician GroupComment on above:Order Comment: Reason for Exam Type 2 diabetes mellitus without complication, without long- Reason for Exam Hypercholesterolemia Reason for Exam Vitamin D deficiency Performed By: #### CBC #### [facility] [address] [id number] USACreatinine [Mass/volume] in Serum or PlasmaOrdered By: Ajit Pettit on 66-17-9659Ozafzgnqji [Mass/Vol]Creatinine [Mass/volume] in Serum or Plasma0.60-1.20As[facility] County Medical CenterCreatinine [Mass/Vol]0.74 mg/dLNormal0.60-1.20[facility] CenterComment on above:Order Comment: Reason for Exam Type 2 diabetes mellitus without complication, without long- Reason for Exam Hypercholesterolemia Reason for Exam Vitamin D deficiency Performed By: #### CBC #### [facility] [address] [place] [address] USAEosinophils Auto (Bld) [#/Vol]Ordered By: Ajit Spasic on 58-99-0480Gdovnvuigmy (Bld) [#/Vol]Automated eosinophil count0.0-0.45As[facility] County Medical CenterEosinophils [#/volume] in Blood by Automated countOrdered By: Ajit Spasic on 24-38-6858Klzjkaayqha (Bld) [#/Vol]0.1 10*3/uLNormal 0.0-0.45[facility] County Medical CenterComment on above:Order Comment: Reason for Exam Type 2 diabetes mellitus without complication, without long-Performed By: #### CBC #### [place] [address] USAEosinophils/100 WBC Auto (Bld)Ordered By: Ajit Spasic on 04-84-7757Wezwqkxpvqg/100 WBC (Bld)Automated eosinophil %.[facility] County Medical CenterEosinophils/100 leukocytes in Blood by Automated countOrdered By: Ajit Spasic on 99-21-1641Teiqfricqkx/100 WBC (Bld)0.3 %Normal.[facility] County Medical CenterComment on above:Order Comment: Reason for Exam Type 2 diabetes mellitus without complication, without long-Performed By: #### CBC #### [place] [address] USAErythrocyte distribution width Auto (RBC) [Ratio]Ordered By: Ajit Spasic on 58-02-1580Cloulkoarzx distribution width (RBC) [Ratio] Erythrocyte distribution width [Ratio] by Automated count11.9-15.3FEast Ohio Regional HospitalErythrocyte distribution width [Ratio] by Automated count Ordered By: Ajit Spasic on 05-49-3418Pbwskwzxtot distribution width (RBC) [Ratio]13.0 %Einvzp27.9-15.3FEast Ohio Regional HospitalComment on above: Order Comment: Reason for Exam Type 2 diabetes mellitus without complication, without long-Performed By: #### CBC #### [place] [address] USAErythrocytes [#/volume] in Blood by Automated countOrdered By: Ajit Pettit on 80-57-3146OOM (Bld) [#/Vol]4.62 10*6/uLNormal3.60-5.00 [facility] Medical CenterComment on above:Order Comment: Reason for Exam Type 2 diabetes mellitus without complication, without long-Performed By: #### CBC #### [facility] [address] [place] [address] USAGlobulin Calc (S) [Mass/Vol]Ordered By: Ajit Pettit on 17-82-3821Wyjuecum (S) [Mass/Vol]Serum globulin measurement by calculation (mass/volume)[facility] Medical CenterGlucose [Mass/volume] in Serum or PlasmaOrdered By: Ajit Pettit on 85-63-9067Jtclfvt [Mass/Vol]Glucose [Mass/volume] in Serum or Otcgqb82-114OkeeomeitAshtabula County Medical CenterComment on above:ADA recommended reference rangeRandom Glucose Reference Range is dependent on time and content of last meal. Glucose of more than 200 mg/dL in a nonstressed, ambulatory subject supports the diagnosisof Diabetes Mellitus. Glucose [Mass/Vol]79 mg/fIUstvtf55-388LpxdboomcAshtabula County Medical CenterComment on above:ADA recommended reference rangeRandom Glucose Reference Range is dependent on time and content of last meal. Glucose of more than 200 mg/dL in a nonstressed, ambulatory subject supports the diagnosisof Diabetes Mellitus.Order Comment: Reason for Exam Type 2 diabetes mellitus without complication, without long- Reason for Exam Hypercholesterolemia Reason for Exam Vitamin D deficiency Result Comment: Random Glucose Reference Range is dependent on time and content of last meal. Glucose of more than 200 mg/dL in a nonstressed, ambulatory subject supports the diagnosis of Diabetes Mellitus. ADA recommended reference rangePerformed By: #### CBC #### [facility] [address] [place] [address] USAHematocrit Auto (Bld) [Volume fraction]Ordered By: Ajit Pettit on 07-20-2690Jnkaidluix (Bld) [Volume fraction]Hematocrit [Volume Fraction] of Blood by Automated count34.0-46.4FEast Ohio Regional Hospital Hematocrit [Volume Fraction] of Blood by Automated countOrdered By: Ajit Pettit on 72-97-2711Sfshzgfghf (Bld) [Volume fraction]40.7 %Jmloeq31.0-46.4FEast Ohio Regional HospitalComment on above:Order Comment: Reason for Exam Type 2 diabetes mellitus without complication, without long-Performed By: #### CBC #### [facility] [address] [place] [address] USAHemoglobin A1c/Hemoglobin.total in BloodOrdered By: Ajit Pettit on 96-15-2398JcB4l (Bld) [Mass fraction]Hemoglobin A1c percentageHigh 4.3-5.6FEast Ohio Regional HospitalComment on above:Increased risk for diabetes: 5.7 - 6.4diabetes: >6.4glycemic control for adults with diabetes: &l t;7.0HbA1c (Bld) [Mass fraction]6.4 %High4.3-5.6FEast Ohio Regional HospitalComment on above:Increased risk for diabetes: 5.7 - 6.4diabetes: >6.4glycemic control for adults with diabetes: <7.0Order Comment: Reason for Exam Type 2 diabetes mellitus without complication, without long-Result Comment: Increased risk for diabetes: 5.7 - 6.4 diabetes: >6.4 glycemic control for adults with diabetes: <7.0Performed By: #### CUU #### [facility] [address] [place] [address] USAHemoglobin [Mass/volume] in BloodOrdered By: Ajit Pettit on 49-54-5265Eqdbpkbjhl (Bld) [Mass/Vol]Hemoglobin [Mass/volume] in Blood 11.8-15.4FEast Ohio Regional HospitalHemoglobin (Bld) [Mass/Vol]13.9 g/dL Osrpmt45.8-15.4FEast Ohio Regional HospitalComment on above:Order Comment: Reason for Exam Type 2 diabetes mellitus without complication, without long- Performed By: #### CBC #### [facility] [address] [place] [address] USALeukocytes [#/volume] corrected for nucleated erythrocytes in Blood by Automated counOrdered By: Ajit Pettit on 52-28-0888RLD corrected for nucl RBC Auto (Bld) [#/Vol]Leukocytes [#/volume] corrected for nucleated erythrocytes in Blood by Automated counHigh3.8-11.6FEast Ohio Regional HospitalWBC corrected for nucl RBC Auto (Bld) [#/Vol]18.1 10*3/uLHigh3.8-11.6 [facility] CenterLeukocytes [#/volume] in Blood by Automated countOrdered By: Ajit Lariosness on 18-87-4347CXN (Bld) [#/Vol]18.1 10*3/uLHigh 3.8-11.6FEast Ohio Regional HospitalComment on above:Order Comment: Reason for Exam Type 2 diabetes mellitus without complication, without long-Performed By: #### CBC #### [facility] [address] [place] [address] USALipid Panelon 61-10-6276XRG Cholesterol,Oyeldoippa602 mg/dLHigh0-100The [facility] Physician GroupComment on above:Order Comment: Reason for Exam Type 2 diabetes mellitus without complication, without long- Reason for Exam Hypercholesterolemia Reason for Exam Vitamin D deficiencyResult Comment: LDL ATP III CLASSIFICATION LDL less than 100 mg/dL Optimal LDL 100-129 mg/dL Near or above optimal LDL 130-159 mg/dL Borderline high LDL 160-189 mg/dL High LDL greater than 189 mg/dL Very highPerformed By: #### CBC #### [facility] [address] [place] [address] USATriglyceride w/Glqhjl716 mg/dLHigh0-149The [facility] Physician GroupComment on above:Order Comment: Reason for Exam Type 2 diabetes mellitus without complication, without long- Reason for Exam Hypercholesterolemia Reason for Exam Vitamin D deficiencyResult Comment: TRIG ATP III CLASSIFICATION TRIG less than 150 mg/dL Normal TRIG 150-199 mg/dL Borderline high TRIG 200-500 mg/dL High TRIG greater than 500 mg/dL Very high Standard traceable to the Center for Disease Conrtrol and Prevention (CDC) test method.Performed By: #### CBC #### [facility] [address] [place] [address] USAVLDL BKSSHDYUQFK82 mg/dLNormalThe [facility] Physician GroupComment on above:Order Comment: Reason for Exam Type 2 diabetes mellitus without complication, without long- Reason for Exam Hypercholesterolemia Reason for Exam Vitamin D deficiencyPerformed By: #### CBC #### [facility] [address] [place] [address] USALymphocytes Auto (Bld) [#/Vol]Ordered By: Ajit Pettit on 70-60-6317Fzdlvdixutu (Bld) [#/Vol]Lymphocytes [#/volume] in Blood by Automated countHigh1.00-4.8[facility] Medical CenterLymphocytes [#/volume] in Blood by Automated countOrdered By: Ajit Millanc on 75-05-8007Puezcgnlhbh (Bld) [#/Vol]5.6 10*3/uLHigh1.00-4.8[facility] CenterComment on above: Order Comment: Reason for Exam Type 2 diabetes mellitus without complication, without long-Performed By: #### CBC #### [facility] [address] [place] [id number] USALymphocytes/100 WBC Auto (Bld)Ordered By: Ajit Pettit on 77-09-6928Rugzcjlwwkg/100 WBC (Bld)Lymphocytes/100 leukocytes in Blood by Automated count.[facility] Medical CenterLymphocytes/100 leukocytes in Blood by Automated countOrdered By: Ajit Pettit on 45-70-0135Jtjrvocbhyn/100 WBC (Bld)30.9 %Normal.[facility] Medical CenterComment on above:Order Comment: Reason for Exam Type 2 diabetes mellitus without complication, without long-Performed By: #### CBC #### [facility] [address] [id number] [facility] Auto (RBC) [Entitic mass]Ordered By: Ajit Pettit on 06-11-2023RZX (RBC) [Entitic mass]MCH [Entitic mass] by Automated count24.7-34.3 [facility] [Entitic mass] by Automated countOrdered By: Ajit Pettit on 62-56-7378MEI (RBC) [Entitic mass]30.0 gcFfptvh77.7-34.3 [facility] CenterComment on above:Order Comment: Reason for Exam Type 2 diabetes mellitus without complication, without long-Performed By: #### CBC #### [facility] [address] [address] USAHC Auto (RBC) [Mass/Vol]Ordered By: Ajit Pettit on 32-97-1865QVHE (RBC) [Mass/Vol]MCHC [Mass/volume] by Automated count32.0-35.0 [facility] HamiltonHC (RBC) [Mass/Vol]34.1 g/dL32.0-35.0 [facility] Medical CenterMCV Auto (RBC) [Entitic vol]Ordered By: Ajit Pettit on 46-31-3821QIE (RBC) [Entitic vol]MCV [Entitic volume] by Automated -051CverwvujtAshtabula County Medical CenterMCV [Entitic volume] by Automated countOrdered By: Ajit Pettit on 25-50-9213LWE (RBC) [Entitic vol]88.1 fLNormal 80-100[facility] Medical CenterComment on above:Order Comment: Reason for Exam Type 2 diabetes mellitus without complication, without long-Performed By: #### CBC #### [facility] [address] [place] [address] USAMonocytes Auto (Bld) [#/Vol]Ordered By: Ajit Pettit on 36-77-2353Hkkxnyfwm (Bld) [#/Vol]Automated blood monocyte countHigh0.0-0.8 [facility] CenterMonocytes [#/volume] in Blood by Automated countOrdered By: Ajit Pettit on 26-32-2757Zqjzowjnq (Bld) [#/Vol]0.9 10*3/uL High0.0-0.8[facility] Medical CenterComment on above:Order Comment: Reason for Exam Type 2 diabetes mellitus without complication, without long- Performed By: #### CBC #### [facility] [address] [place] [id number] USAMonocytes/100 WBC Auto (Bld)Ordered By: Ajit Pettit on 78-36-9556Ibuzeoaje/100 WBC (Bld)Automated monocyte %.[facility] CenterMonocytes/100 leukocytes in Blood by Automated countOrdered By: Ajit Pettit on 88-87-9524Scytlxpzm/100 WBC (Bld)5.0 %Normal.[facility] Medical CenterComment on above:Order Comment: Reason for Exam Type 2 diabetes mellitus without complication, without long-Performed By: #### CBC #### [facility] [address] [place] [address] USANeutrophils Auto (Bld) [#/Vol]Ordered By: Ajit Pettit on 73-75-3991Tmmcrgolcha (Bld) [#/Vol]Neutrophils [#/volume] in Blood by Automated countHigh1.8-7.7FEast Ohio Regional HospitalNeutrophils [#/volume] in Blood by Automated countOrdered By: Ajit Pettit on 45-34-5958Dwquoweoyfn (Bld) [#/Vol]11.4 10*3/uLHigh1.8-7.7FEast [facility] Regional HospitalComment on above: Order Comment: Reason for Exam Type 2 diabetes mellitus without complication, without long-Performed By: #### CBC #### [facility] [address] [id number] USANeutrophils/100 WBC Auto (Bld)Ordered By: Ajit Pettit on 78-80-4595Chmgewpgcap/100 WBC (Bld)Automated neutrophil %.[facility] CenterNeutrophils/100 leukocytes in Blood by Automated countOrdered By: Ajit Pettit on 12-04-8038Dbiwbbjusnr/100 WBC (Bld)63.0 %Normal.[facility] County Medical CenterComment on above:Order Comment: Reason for Exam Type 2 diabetes mellitus without complication, without long-Performed By: #### CBC #### [facility] [address] [id number] USANo Panel InformationOrdered By: Ajit Pettit on 02-20-2025 Estimated GFR (CKD-EPI)> 60.0 mL/MinAshtabula County Medical CenterPharmacy Creatinine Clearance (ChemN/[facility] HospitalNucleated erythrocytes [Presence] in Blood by Automated countOrdered By: Ajit Pettit on 68-31-4747Qyfwbqiil RBC Auto Ql (Bld)Nucleated erythrocytes [Presence] in Blood by Automated count0-0.5FEast Ohio Regional HospitalNucleated RBC Auto Ql (Bld)0.0 /100{WBC}0-0.5FEast [facility] Regional HospitalPlatelet mean volume Auto (Bld) [Entitic vol]Ordered By: Ajit Pettit on 55-93-0026Nxrgxeum mean volume (Bld) [Entitic vol]Platelet mean volume [Entitic volume] in Blood by Automated count6.3-10.7FEast [facility] Regional HospitalPlatelet mean volume [Entitic volume] in Blood by Automated countOrdered By: Ajit Pettit on 33-89-8246Swdkghzl mean volume (Bld) [Entitic vol]8.2 fLNormal6.3-10.7FEast Ohio Regional HospitalComment on above:Order Comment: Reason for Exam Type 2 diabetes mellitus without complication, without long-Performed By: #### CBC #### [facility] [address] [id number] USAPlatelets Auto (Bld) [#/Vol]Ordered By: Ajit Pettit on 33-37-1852Flfhdxqzi (Bld) [#/Vol]Platelets [#/volume] in Blood by Automated -336OimpnvzmgAshtabula County Medical CenterPlatelets [#/volume] in Blood by Automated countOrdered By: Ajit Pettit on 79-81-1660Mevvpbgge (Bld) [#/Vol]315 10*3/nZEymjvn208-215Jzasfqyto[address] [place], [place] [address]Comment on above:Order Comment: Reason for Exam Type 2 diabetes mellitus without complication, without long-Performed By: #### CBC #### [facility] [address] [id number] USAPotassium [Moles/volume] in Serum or PlasmaOrdered By: Ajit Pettit on 75-32-4857Vkkntlkqd [Moles/Vol]Potassium [Moles/volume] in Serum or Plasma3.5-5.1FEast Ohio Regional HospitalPotassium [Moles/Vol]3.9 mmol/LNormal3.5-5.1FEast [facility] Regional HospitalComment on above:Order Comment: Reason for Exam Type 2 diabetes mellitus without complication, without long- Reason for Exam Hypercholesterolemia Reason for Exam Vitamin D deficiency Performed By: #### CBC #### [facility] [address] [address] USAProtein [Mass/volume] in Serum or PlasmaOrdered By: Ajit Pettit on 69-21-7801Tljfhkb [Mass/Vol]Protein [Mass/volume] in Serum or Plasma 6.4-8.9As[facility] Medical CenterProtein [Mass/Vol]7.3 g/dLNormal6.4-8.9 [facility] CenterComment on above:Order Comment: Reason for Exam Type 2 diabetes mellitus without complication, without long- Reason for Exam Hypercholesterolemia Reason for Exam Vitamin D deficiencyPerformed By: #### CBC #### [address] [id number] USARBC Auto (Bld) [#/Vol]Ordered By: Ajit Pettit on 75-71-2039LME (Bld) [#/Vol]Erythrocytes [#/volume] in Blood by Automated count 3.60-5.00[facility]sburg Hospitalerum globulin measurement by calculation (mass/volume)Ordered By: Ajit Pettit on 39-54-0520Snzbkinp (S) [Mass/Vol]2.7 g/dLNoMercy Health Lorain HospitalComment on above:Order Comment: Reason for Exam Type 2 diabetes mellitus without complication, without long- Reason for Exam Hypercholesterolemia Reason for Exam Vitamin D deficiency Performed By: #### CBC #### [facility] [address] [place], [place] [address] USASerum or plasma albumin/globulin mass ratioOrdered By: Ajit Pettit on 88-44-3957Dcvlifr/Globulin [Mass ratio]Serum or plasma albumin/globulin mass ratioAshtabula County Medical CenterAlbumin/Globulin [Mass ratio]1.7 {ratio}NormalAshtabula County Medical CenterComment on above: Order Comment: Reason for Exam Type 2 diabetes mellitus without complication, without long- Reason for Exam Hypercholesterolemia Reason for Exam Vitamin D deficiencyPerformed By: #### CBC #### [address] [id number] USASerum or plasma anion gap determinationOrdered By: Ajit Pettit on 74-59-4986Cdope gap [Moles/Vol]Serum or plasma anion gap determination High6.0-15.0As[facility] County Medical CenterAnion gap [Moles/Vol]15.1 mmol/L High6.0-15.0[facility] Medical CenterComment on above:Order Comment: Reason for Exam Type 2 diabetes mellitus without complication, without long- Reason for Exam Hypercholesterolemia Reason for Exam Vitamin D deficiency Performed By: #### CBC #### [facility] [address] [place] [address] USASerum or plasma total cholesterol/high density lipoprotein (HDL) cholesterol mass ratOrdered By: Ajit Pettit on 02-20-2025 Cholesterol.total/Cholesterol in HDL [Mass ratio]Serum or plasma total cholesterol/high density lipoprotein (HDL) cholesterol mass rat<5.0[facility] Medical CenterCholesterol.total/Cholesterol in HDL [Mass ratio]4.5 {ratio}Normal<5.0[facility] County Medical CenterComment on above:Order Comment: Reason for Exam Type 2 diabetes mellitus without complication, without long- Reason for Exam Hypercholesterolemia Reason for Exam Vitamin D deficiency Performed By: #### CBC #### [facility] [address] [place] [address] USASodium [Moles/volume] in Serum or PlasmaOrdered By: Ajit Pettit on 13-19-2388Hkzrup [Moles/Vol]Sodium [Moles/volume] in Serum or Plasma Nbf259-605JoyslmeihMercy Health Perrysburg Hospitalodium [Moles/Vol]135 mmol/LLow 136-145As[facility] Medical CenterComment on above:Order Comment: Reason for Exam Type 2 diabetes mellitus without complication, without long- Reason for Exam Hypercholesterolemia Reason for Exam Vitamin D deficiencyPerformed By: #### CBC #### [facility] [address] [place] [address] USATriglyceride [Mass/volume] in Serum or PlasmaOrdered By: Ajit Pettit on 95-02-5662Zwfvucszinya [Mass/Vol]Triglyceride [Mass/volume] in Serum or PlasmaHigh0-149As[facility] Medical CenterComment on above:TRIG ATP III CLASSIFICATIONTRIG less than 150 mg/dL NormalTRIG 150-199 mg/dL Borderline highTRIG 200-500 mg/dL High TRIG greater than 500 mg/dL Very highStandard traceable to the Center for Disease Conrtrol and Prevention (CDC) test method.Triglyceride [Mass/Vol]313 mg/dLHigh0-149As[facility] Medical CenterComment on above:TRIG ATP III CLASSIFICATIONTRIG less than 150 mg/dL NormalTRIG 150-199 mg/dL Borderline highTRIG 200-500 mg/dL High TRIG greater than 500 mg/dL Very highStandard traceable to the Center for Disease Conrtrol and Prevention (CDC) test method.Urea nitrogen [Mass/volume] in Serum or Plasma Ordered By: Ajit Pettit on 87-96-2578Iylc nitrogen [Mass/Vol]Urea nitrogen [Mass/volume] in Serum or Plasma04-27As[facility] County Medical CenterUrea nitrogen [Mass/Vol]8 mg/dLNormal04-27[facility] CenterComment on above:Order Comment: Reason for Exam Type 2 diabetes mellitus without complication, without long- Reason for Exam Hypercholesterolemia Reason for Exam Vitamin D deficiencyPerformed By: #### CBC #### [facility] [address] [address] USAUrine Cultureon 31-55-6064Ktzvbqtb identified Cx Nom (U) Reason for Exam Urinary retention Urine 40,000 colonies/ml mixed bacterial skin contaminants 2 Days PERFORMED BY: [place] [address] PATHOLOGIST AIRPORT RAMP SUPERVISOR MAURO ELLSWORTH M.D.NormalThe Formerly [facility] Physician GroupComment on above: Performed By: #### CUU #### [facility] [address] [id number] USAUrine cultureOrdered By: Ajit Pettit on 02-20-2025 Bacteria identified Cx Nom (U)Urine cultureAshtabula County Medical Center Bacteria identified Cx Nom (U)2 DaysAshtabula County Medical CenterVitamin D 25 Hydroxy Totalon 25-17-7324Kqobsjn D 25 Hydroxy Total76.2 ng/sWAjbutw33-822Nhf [facility] Physician GroupComment on above:Order Comment: Reason for Exam Type 2 diabetes mellitus without complication, without long- Reason for Exam Hypercholesterolemia Reason for Exam Vitamin D deficiencyResult Comment: VITAMIN D STATUS 25(OH)VITAMIN D RANGE (ng/mL) Deficient <20 Insufficient 20 to <30 Sufficient 30 to 100 Reference: Dominique Restrepo, Gillian GRAHAM, et al. Evaluation,treatment, and prevention of vitamin D deficiency; an Endocrine Society clinical practice guideline. JCEM. 2010; 96(7):1911-. PERFORMED BY: [address] [place] [id number] PATHOLOGIST AIRPORT RAMP SUPERVISOR MAURO ELLSWORTH M.D.Performed By: #### CUU #### [address] Williamson StreetVitamin D+Metabolites [Mass/volume] in Serum or Plasma Ordered By: Ajit Pettit on 75-79-0317Xgytthl D+Metabolites [Mass/Vol]Vitamin D+Metabolites [Mass/volume] in Serum or Ocxpke55-801JkbwbabrgAshtabula County Medical CenterComment on above:VITAMIN D STATUS 25(OH)VITAMIN D RANGE (ng/mL) Deficient <20 Insufficient 20 to <89Onjjpsvwff31 to 100Reference: Dominique Restrepo, Gillian GRAHAM, et al. Evaluation,treatment, and prevention of vitamin D deficiency; an Endocrine Society clinical practice guideline. JCEM. 2010; 96 (7):191-.Vitamin D+Metabolites [Mass/Vol]76.2 ng/cQ83-828AioaulhrgAshtabula County Medical CenterComment on above:VITAMIN D STATUS 25(OH)VITAMIN D RANGE (ng/mL) Deficient <20 Insufficient 20 to <24Hzfsevskon84 to 100Reference: Dominique Restrepo, Gillian GRAHAM, et al. Evaluation,treatment, and prevention of vitamin D deficiency; an Endocrine Society clinical practice guideline. JCEM. 2010; 96(7):1911-.WBC Auto (Bld) [#/Vol]Ordered By: Ajit Pettit on 58-81-8733FTF (Bld) [#/Vol]Leukocytes [#/volume] in Blood by Automated countHigh 3.8-11.6FEast Ohio Regional HospitalUrine Cultureon 00-38-9748Ncwgshrp identified Cx Nom (U)50,000 colonies/ml mixed bacterial skin contaminants 2 Days PERFORMED BY: [place] [address] PATHOLOGIST AIRPORT RAMP SUPERVISOR MAURO ELLSWORTH M.D.[facility] Physician GroupComment on above: Performed By: #### CUU #### [place] [address] USAUrine cultureOrdered By: Praveen Bermudez on 84-13-3201Wvbteoss identified Cx Nom (U)Urine cultureAshtabula County Medical CenterBacteria identified Cx Nom (U)2 DaysAshtabula County Medical CenterMM screening mammo BI w/CADon 19-37-7503AH screening mammo BI w/CADPREMIER [facility] [address] [place] [address] [place] [address] Mammography Report Signed Patient: Rachel Mcgarry MR#: [id number] 1 : 1980 Acct:[id number] Age/Sex: 45 / F Adm Date: 02/15/25 Loc: [place] Room: Type: [facility] Attending Dr: Ajit DEJESUS Ordering Provider: OLEG Sharp Date of Service: 02/15/25 Procedure(s): MM screening mammo BI w/CAD Accession Number(s): ([id number]) MM/MM screening mammo BI w/CAD: Screening mammogram [...] Welch M.D. 02/15/2025 10:28 AM Dictation Location: [facility] Dictated By: Praveen Welch DO 02/15/25 1027 Signed By: 02/15/[address] [place] [address] Physician GroupUrine Cultureon 02-12-2025 Bacteria identified Cx Nom (U)20,000 colonies/ml mixed bacterial skin contaminants 2 Days PERFORMED BY: [place] [address] PATHOLOGIST AIRPORT RAMP SUPERVISOR MAURO ELLSWORTH M.D.[facility] Physician [facility] HospitalComment on above: Performed By: #### CUU #### [address] StreetUrine cultureOrdered By: Anisa Chong on 02-12-2025 Bacteria identified Cx Nom (U)Urine cultureAshtabula County Medical Center Bacteria identified Cx Nom (U)2 DaysMagruder Hospital Clinical Summaryon 12-52-8329RI Clinical SummaryED Clinical Summary [address] [address] ED Clinical Summary Person Information Name: RACHEL MCGARRY [facility] Age: 45 Years : 1980 Sex: Female Language: Uruguayan PCP: AJIT PETTIT CNP Marital Status: Visit [...] 01/24/2025 12:25:32 01/24/2025 12:25:32 01/24/2025 12:25:32 ADDRESS: [address] [place] [phone] PHYS DOC NOTES: MEDICAL INFORMATION: Prescriptions Given: New Medications [id number], [address] [place], [place] [id number], [phone] ciprofloxacin (Cipro 500 mg Tab) 1 Tablets [...] EDUCATION INFORMATION: Instructions: Urinary Tract Infection, Adult, Tyvh-kc-Rnvg Follow up: With: Address: When: AJIT PETTIT [address] [place] [address] [employer] ([employer] In 3 days 01/27/2025 Comments: Call Dr for diagnosis based follow up DIAGNOSIS: UTI symptomsNormalFisher Fareed Medical CenterED Note-Physicianon 07-85-9442JB Note-PhysicianED Note-Physician Basic Information Time Seen: Hussein Ramey [...] other associated symptoms no other prior treatments orcomplaints. Family: Reviewed and noncontributory Social: lives at [...] day(s), # 6 tab(s), Refills(s) 0, Pharmacy: [id number], 165, cm, 01/24/25 11:37:00 EDT, Height/Length Dosing, 70.1, kg, 01/24/25 11:37:00 EDT, Weight Dosing fluconazole, 300 mg = 2 tab(s), Tab, Oral, Once, Stop date 01/24/25 12:04:00 EDT, STAT, Start date 01/24/25 12:04:00 EDT, 01/24/25 12:04:00 EDT fluconazole, 150 mg = 1 tab(s), Oral, q7day, take on 01/31/2025, # 2 tab(s), Refills(s) 0, Pharmacy:[id number], 165, cm, 01/24/25 11:37:00 EDT, Height/Length Dosing, 70.1, kg, 01/24/25 11:37:00 EDT, Weight Dosing ondansetron, 4 mg = 1 tab(s), Tab-Dis, Oral, Once, Stop date 01/24/25 12:04:00 EDT, STAT, Start date 01/24/25 12:04:00 EDT, 01/24/25 12:04:00 EDT ondansetron, 4 mg = 1 tab(s), Oral, q8hr, PRN Nausea/Vomiting, # 12 tab(s), Refills(s) 0, Pharmacy:[facility]/pharmacy #[id number], 165, cm, 01/24/25 11:37:00 EDT, Height/Length Dosing, 70.1, kg, 01/24/25 11:37:00 EDT, Weight Dosing phenazopyridine, 100 mg = 1 tab(s), Oral, TID, X 7 day(s), # 21 tab(s), Refills(s) 0, Pharmacy: [facility]/pharm[facility] #[id number], 165, cm, 01/24/25 11:37:00 EDT, [...] AJIT PETTIT In 3 days 01/27/2025 EDT [facility] [place] [address]- (more content not included)...ACMC Healthcare SystemComment on above:Result Comment: Electronically Signed By: Hussein Ramey PA-C\.br\Date and Time Signed: 01/24/2514:33 EDT\.br\Electronically Co-Signed By: Rosanna Sterling, Laura Knight\.br\Date and Time Co-Signed: 01/24/25 14:50 EDTED Patient Summaryon 40-70-2855OG Patient SummaryED Patient Summary [address] [address] Patient Discharge Instructions Person Information Name: RACHEL MCGARRY Age: 45 Years Arrival Date: 01/24/2025 11:30:26 Discharge Diagnosis: UTI symptoms Primary Care Physician: AJIT PETTIT CNP Provider Information Primary Provider: Laura Marte M.D. Advanced Birdcage Assembler:Hussein Ramey PA-C The exam and treatment you received in the Emergency Department were for an urgent problem and are not intended as complete care. It is important that you follow up with a doctor, nurse practitioner,or physician???s commercial escrow assistant for ongoing care. If your symptoms become worse or you do not improve asexpected and you are unable to reach your usual health care provider, you should return to the Emergency Department. We are available 24 hours a day. ZEFERINO RACHEL L has been given the following list of patient education materials, prescriptions and follow-up instructions: Follow-up Instructions: With: Address: When: AJIT PETTIT [address] [place] [address] Business (1) In 3 days 01/27/2025 Comments: Call Dr for diagnosis based follow up In the event that this physician does not participate in your insurance network, please consult with your insurance company to find a nearby participating provider. Patient Education Materials: Urinary Tract Infection, Adult, Cico-ov-Zxkd A MESSAGE TO ALL PATIENTS REGARDING OPIOIDS PRESCRIPTION OPIOIDS: WHAT YOU NEED TO KNOW Prescription opioids can be used to help relieve tujliyet-li-fgoebt pain and are often prescribed following a [...] you may be st (more content not included)...ACMC Healthcare SystemUA with Cult Rflxon 95-49-3140Dsxqcbha Auto Ql (U)Trace NormalTraceCommunity Memorial HospitalComment on above:Performed By: #### [id number] #### [facility] [address], [place] [address]Awmnbrleu Ql (U)NegativeNormalNegativeCommunity Memorial HospitalComment on above:Performed By: #### [id number] #### [facility] [address], [place] [address]Pwrqfxu (U)TurbidAbnormalClearFTogus VA Medical Center Comment on above:Performed By: #### [id number] #### [facility] [address], [place] [address]Ifxsx (U)YellowNormalYellowCommunity Memorial HospitalComment on above:Result Comment: Microscopic readings are only performed on those samples that meet specific criteria set forth by [facility].Performed By: #### [id number] #### [facility] [address], [place] [address]Mlverogvxh cells.squamous Auto (Urine sed) [#/Area]>10Invalid Interpretation CodeCommunity Memorial HospitalComment on above:Performed By: #### [id number] #### [facility] [address], [place] [address]Jyuospz Ql (U)1+ mg/dLAbnormalNegativeCommunity Memorial HospitalComment on above:Performed By: #### [id number] #### [facility] [address] [place] [address]Fbkybexgmg Auto test strip (U) [Mass/Vol]NegativeNormalNegative Community Memorial HospitalComment on above:Performed By: #### [id number] #### [facility] [address], [place] [address]Wvkhgji Auto test strip Ql (U)1+ mg/dLAbnormalNegativeCommunity Memorial HospitalComment on above:Performed By: #### [id number] #### [facility] [address] [place] [address]Czjawmjsa esterase Auto test strip Ql (U)NegativeNormalNegative Community Memorial HospitalComment on above:Performed By: #### [id number] #### [facility] [address] [place] [address]Vxgkl Auto Ql (U)TraceNormalNegativeCommunity Memorial Hospital Comment on above:Performed By: #### [id number] #### [facility] [address] [place] [address]Yykzynp Auto test strip Ql (U)NegativeNormalNegativeCommunity Memorial HospitalComment on above:Performed By: #### [id number] #### [facility] [address], [place] [address]rL (U)6.0 [pH]Invalid Interpretation Code5.0-9.0Community Memorial HospitalComment on above:Performed By: #### [id number] #### [facility] [address], [place] [address]Gqpoiak Ql (U)NegativeNormalNegTriHealth [facility] Comment on above:Performed By: #### [id number] #### [facility] [address] [place] [address]EGJ Ql (U)1-82Wkgtviae0-1IpjvesTogus VA Medical CenterComment on above:Performed By: #### [id number] #### [facility] [address] [place] [address]Cakfrptg gravity (U) [Rel density]1.015Invalid Interpretation Code1.005-1.030Community Memorial HospitalComment on above:Performed By: #### [id number] #### [facility] [address] [place] [address]Qfbwzmnhpyyc (U) [Mass/Vol]NegativeNormalNegativeCommunity Memorial HospitalComment on above:Performed By: #### [id number] #### [facility] [address] [place] [address]OJO Auto (Urine sed) [#/Area]2-1Exrgau6-9QaoczcTogus VA Medical CenterComment on above:Performed By: #### [id number] #### [facility] [address] [place] [address]Kxsud.budding Computer assisted Ql (U)1+ CD:[id number] Community Memorial HospitalComment on above:Performed By: #### [id number] #### [facility] [address] [place] [address]Xoou of Urine collection methodClean CatchNormalCommunity Memorial HospitalComment on above:Performed By: #### [id number] #### [facility] [address] [place] [address]QBHYHYNIMVVdljwxq By: SYSTEM SYSTEM on 43-25-5777Ydckcfom Auto Ql (U)Trace /HPFNormalTrace/HPFFTMC UA Auto SSBilirubin Ql (U)NegativeNormal Negativemg/dLFT UA Auto SSClarity (U)Turbid *ABN* (01/24/25 11:39 AM)Invalid Interpretation CodeClearFTMC UA Auto SSColor (U)Yellow 1 (01/24/25 11:39 AM)NormalYellowMERCY HOSPITAL [facility] [place] UA Auto SSComment on above:Interpretive Data: Microscopic readings are only performed on those samples that meet specific criteria set forth by [facility].Epithelial cells.squamous Auto (Urine sed) [#/Area]>10 graded/HPFInvalid Interpretation CodeMERCY HOSPITAL [facility] [place] UA Auto SSGlucose Ql (U)1+ mg/dLInvalid Interpretation Code Negativemg/dLFT UA Auto SSHemoglobin Auto test strip (U) [Mass/Vol]Negative NormalNegativemg/dLFT UA Auto SSKetones Auto test strip Ql (U)1+ mg/dLInvalid Interpretation CodeNegativemg/dLFT UA Auto SSLeukocyte esterase Auto test strip Ql (U)NegativeNormalNegativeLeu/uLFT UA Auto SSMucus Auto Ql (U)Trace graded/LPFNormalNegativegraded/LPFFTMC UA Auto SSNitrite Auto test strip Ql (U) NegativeNormalNegativemg/dLMERCY HOSPITAL [place] [place]A Auto SSpH (U)6.0 *NA* (01/24/25 11:39 AM)Invalid Interpretation Code5.0 - 9.0[facility] [place] UA Auto SSProtein Ql (U)NegativeNormalNegativemg/dLMERCY HOSPITAL [place] [place] UA Auto SSRBC Ql (U)4-20 graded/HPFInvalid Interpretation Code0-3graded/HPFMERCY HOSPITAL [place] [facility] [place] UA Auto SSSpecific gravity (U) [Rel density]1.015 *NA* (01/24/25 11:39 AM)Invalid Interpretation Code1.005 - 1.030[facility] [place]A Auto SS Urobilinogen (U) [Mass/Vol]NegativeNormalNegativemg/dLMERCY HOSPITAL [place] [facility] [place] UA Auto SSWBC Auto (Urine sed) [#/Area]0-5 graded/HPFNormal0-5graded/HPFMERCY HOSPITAL [place] [facility] [place] UA Auto SS Yeast.budding Computer assisted Ql (U)1+ graded/HPFInvalid Interpretation Code [facility] [place] UA Auto SSURINALYSISOrdered By: Mati Reilly on 55-70-7098GL Spec DescClean Catch (01/24/25 11:39 AM)NormalMERCY HOSPITAL [facility] [place] UA Auto SSUrine Cultureon 95-97-4492Hjpdsleq identified Cx Nom (U)50,000 colonies/ml mixed bacterial skin contaminants 2 Days PERFORMED BY: [place] [address] PATHOLOGIST AIRPORT RAMP SUPERVISOR MAURO ELLSWORTH M.D.[facility] Physician GroupComment on above: Performed By: #### CUU #### [place] [address] USAUrine cultureOrdered By: Praveen Rivero on 01-18-2025 Bacteria identified Cx Nom (U)Urine cultureAshtabula County Medical Center Bacteria identified Cx Nom (U)2 DaysAshtabula County Medical CenterUS breast LT limitedon 20-21-6718QL breast LT limitedMARTINS FERRY [facility] Main [place] [address] [place] [address] Mammography Report Signed Patient: Rachel Mcgarry MR#: [id number] 1 : 1980 Acct:[id number] Age/Sex: 44 / F ADM Date: 09/06/24 Loc: [place] Room: Type: [facility] Attending Dr: Ajit DEJESUS Copies to: OLEG Sharp Ordering Provider: OLEG Sharp Date of Service: 09/06/24 MM/MM diagnostic mammo LT w/CAD: Breast pain, left ([id number]) US/US breast LT limited: Breast pain, left [...] Eda Yañez M.D.09/06/2024 8:56 AM Dictation Location: [facility] Transcribed By: [facility] 09/06/24 0856 Dictated By: Eda Yañez MD 09/06/24 0819 Signed By: 09/06/24 0856[facility] Physician GroupGlucose Poct Glucometerson 96-26-4655Jmdqxbj7Aar0: Cleaned MeterNoFormerly [facility] & [facility] Physician GroupComment on above:Result Comment: PERFORMED BY: [place] [address] [place] [address] PATHOLOGIST AIRPORT RAMP SUPERVISOR MAURO ELLSWORTH M.D.Performed By: #### GLULS #### Point of Care testing ,Glucose [Mass/Vol]132 mg/dLShorePoint Health Punta Gorda Physician GroupComment on above: Result Comment: Random Glucose Reference Range is dependent on time and content of last meal. Glucose of more than 200 mg/dL in a nonstressed, ambulatory subject supports the diagnosis of Diabetes Mellitus.Performed By: #### GLULS #### Point of Care testing ,Pathology Request for Lab Corpon [id number] Request for Lab CorpNormal [facility] Physician GroupComment on above:Order Comment: PATH SENDOUT-GI SPECIMENResult Comment: See report. Scanned copy available in EMR. PERFORMED BY: [place] [address] PATHOLOGIST AIRPORT RAMP SUPERVISOR MAURO ELLSWORTH M.D.Performed By: #### PATH TO [facility] #### [place] [address] USAUS breast RT limitedon 69-70-6327PJ breast RT limited [facility] [place] [address] [place] [address] Ultrasound Report Signed Patient: Rachel Mcgarry MR#: [id number] 1 : 1980 Acct:[id number] Age/Sex: 44 / F ADM Date: 07/24/24 Loc: [facility] Room: Type: [facility] Attending Dr: Ajit DEJESUS Ordering Provider: [...] Praveen Welch M.D.07/25/2024 10:48 AM Dictation Location: [facility] Tech: Dominique Singh Transcribed By: [facility] 07/25/24 1048 Dictated By: Praveen Welch DO 07/24/24 1642 Signed By: 07/25/24 1048NoFormerly [facility] Physician GroupB hCG Qualon 34-50-0999Mvdm HCG ( test) QlNegativeNormalCommunity Memorial HospitalComment on above: Performed By: #### [id number] #### [facility] [address], [place] [address]AZNrs 33-36-1645Hirpl gap [Moles/Vol]12 mmol/LNormal6-16Community Memorial HospitalComment on above:Performed By: #### [id number] #### [facility] [address], [place] [address]Blfspvd [Mass/Vol]8.9 mg/dLNormal8.9-11.1FTogus VA Medical CenterComment on above:Performed By: #### [id number] #### [facility] [address], [place] [address]Echyndsz [Moles/Vol]99 mmol/OMuo446-903PecjqgCommunity Memorial HospitalComment on above:Performed By: #### [id number] #### [facility] [address], [place] [address]NA3 [Moles/Vol]24 mmol/JXzlkij41-45RlhwgeCommunity Memorial Hospital Comment on above:Performed By: #### [id number] #### [facility] [address], [place] [address]Eevppiohij [Mass/Vol]0.5 mg/dLNormal0.5-1.3FTogus VA Medical CenterComment on above:Performed By: #### [id number] #### [facility] [address], [place] [address]Escvizc [Mass/Vol]149 mg/uTPomfln38-442SuryjyCommunity Memorial HospitalComment on above:Performed By: #### [id number] #### [facility] [address], [place] [address]Cfhyogpqs [Moles/Vol]4.1 mmol/LNormal3.5-5.3FTogus VA Medical CenterComment on above:Performed By: #### [id number] #### [facility] [address], [place] [address]Esivyd [Moles/Vol]131 mmol/WWsh157-461InrbkkCommunity Memorial HospitalComment on above:Performed By: #### [id number] #### [facility] [address], [place] [address]Jzqz nitrogen [Mass/Vol]9 mg/dLNormal5-21Community Memorial HospitalComment on above:Performed By: #### [id number] #### [facility] [address] [place] [address]Nlkw nitrogen/Creatinine [Mass ratio]18 No ZoyxnLcmaop74-13 Community Memorial HospitalComment on above:Performed By: #### [id number] #### [facility] [address] [place] [address]QMQ w/ Auto Diffon 07-99-8027Rfvuswhnp/100 WBC (Bld)1.0 %Normal 0.0-2.0Community Memorial HospitalComment on above:Performed By: #### [id number] #### [facility] [address] [place] [address]Rtduvmdrw/Leukocytes Auto (Bld) [Pure # fraction]0.2 E9/LNormal 0.0-0.2FTogus VA Medical CenterComment on above:Performed By: #### [id number] #### [facility] [address] [place] [address] 90[address]Mnczroonrjd (Bld) [#/Vol]0.1 E9/LNormal0.0-0.5FTogus VA Medical CenterComment on above:Performed By: #### [id number] #### [facility] [address] [place] [address] 54995Mqujdexcnbj/100 WBC (Bld)0.8 %Normal0.0-8.0Community Memorial HospitalComment on above:Performed By: #### [id number] #### [facility] [address] [place] [address] 34118Tyejilcgscj distribution width (RBC) [Ratio]13.2 %Normal 10.9-14.2FTogus VA Medical CenterComment on above:Performed By: #### [id number] #### [facility] [address] [place] [address] 24373Fpmopucnhd (Bld) [Volume fraction]38.9 %Nxyczf57.0-46.0Community Memorial HospitalComment on above:Performed By: #### [id number] #### [facility] [address] [place] [address]Urryhvzzhz (Bld) [Mass/Vol]13.4 g/jNCkqcsn68.0-16.0Community Memorial HospitalComment on above:Performed By: #### [id number] #### [facility] [address] [place] [address] 30[address]Rscpasvpqlg (Bld) [#/Vol]3.7 E9/LNormal1.0-4.0Community Memorial HospitalComment on above:Performed By: #### [id number] #### [facility] [address] [place] [address] 08143Zihuuueqwfu/100 WBC (Bld)24.7 %Anjdup30.0-50.0Community Memorial HospitalComment on above:Performed By: #### [id number] #### [facility] [address] [place] [address] 95863QMD (RBC) [Entitic mass]30.4 urKfayfo69.0-34.0Community Memorial HospitalComment on above:Performed By: #### [id number] #### [facility] [address] [place] [address] 02620LCKO (RBC) [Mass/Vol]34.5 g/jFUktznx81.4-36.0Community Memorial HospitalComment on above:Performed By: #### [id number] #### [facility] [address] [place] [address] 27975HCM (RBC) [Entitic vol]88.1 uQBycsdm36.0-100.0Community Memorial HospitalComment on above:Performed By: #### [id number] #### [facility] [address] [place] [address] 88641Ynavhwvwy (Bld) [#/Vol]0.7 E9/LNormal0.2-1.0Community Memorial HospitalComment on above:Performed By: #### [id number] #### [facility] [address] [place] [address] 25758Ybmgrpiipub (Bld) [#/Vol]10.3 E9/LHigh2.0-7.5FTogus VA Medical CenterComment on above:Performed By: #### [id number] #### [facility] [address] [place] [address] 02929Avsjmmxqyes/100 WBC (Bld)69.1 %Dsyxyk78.0-75.0Community Memorial HospitalComment on above:Performed By: #### [id number] #### [facility] [address] [place] [address] 71749Rmotgqzh mean volume (Bld) [Entitic vol]8.3 fLNormal6.4-10.8 Community Memorial HospitalComment on above:Performed By: #### [id number] #### [facility] [address] [place] [address] 49294Krkdhqnnx (Bld) [#/Vol]319.0 E9/INwtalr791.0-500.0Community Memorial HospitalComment on above:Performed By: #### [id number] #### [facility] [address] [place] [address] 70598FZJ (Bld) [#/Vol]4.4 E12/LNormal4.3-5.9Community Memorial HospitalComment on above:Performed By: #### [id number] #### [facility] [address] [place] [address] 779[address]CRM corrected for nucl RBC Auto (Bld) [#/Vol]14.9 E9/LHigh 4.0-11.0Community Memorial HospitalComment on above:Result Comment: Peripheral smear review performed.Performed By: #### [id number] #### [facility] [address] [place] [address] 10822YLIFJMGPSBdeqjsa By: SYSTEM SYSTEM on 46-85-1714Flwxmatv HS3.60 pg/mLLow10.10 - 27.10 pg/mLRemisol ChemComment on above:Interpretive Data: The 95% CI (Confidence Interval) PPV (Positive Predictive Value) for myocardial i nfarction in females is 38 pg/mL, in males 51 pg/mL. The results should be used in conjunction withclinical conditions of myocardial infarction. (Access High Sensitivity Troponin I Instructions For Use, Gustavo Patti, May 2018)Albumin [Mass/Vol]4.0 g/dLNormal3.3 - 5.0 gm/dLRemisol Chem Albumin/Globulin [Mass ratio]1.3 {ratio}Normal1.1 - 2.2Remisol ChemALP [Catalytic activity/Vol]65 [iU]/eBoxqla71 - 98 Int._Unit/LRemisol ChemALT No additional P-5'-P [Catalytic activity/Vol]10 [iU]/dNormal6 - 46 Int._Unit/L Remisol ChemAnion gap [Moles/Vol]12 mmol/LNormal6 - 16 mEq/LRemisol ChemAST [Catalytic activity/Vol]11 [iU]/dNormal5 - 43 Int._Unit/LRemisol ChemBilirubin [Mass/Vol]0.2 mg/dLNormal0.0 - 1.1 mg/dLRemisol ChemBilirubin.direct [Mass/Vol] 0.0 mg/dLNormal0.0 - 0.4 mg/dLRemisol ChemBilirubin.indirect [Mass or moles/Vol] 0.2 mg/dLNormal0.1 - 0.9 mg/dLRemisol ChemCalcium [Mass/Vol]8.9 mg/dLNormal8.9 - 11.1 mg/dLRemisol ChemChloride [Moles/Vol]99 mmol/MXzr047 - 111 mmol/LRemisol ChemCO2 [Moles/Vol]24 mmol/QYvrody56 - 31 mmol/LRemisol ChemCreatinine [Mass/Vol]0.5 mg/dLNormal0.5 - 1.3 mg/dLRemisol HoiclJWJ606 mL/min/1.73 c9Wyxjrm >=59mL/min/1.73 v4Jxanijm ChemGlobulin (S) [Mass/Vol]3.2 g/dLNormal1.4 - 4.0 gm/dLRemisol ChemGlucose [Mass/Vol]149 mg/yHTsazbd53 - 199 mg/dLRemisol Chem Potassium [Moles/Vol]4.1 mmol/LNormal3.5 - 5.3 mmol/LRemisol ChemProtein [Mass/Vol]7.2 g/dLNormal6.0 - 7.8 gm/dLRemisol ChemSodium [Moles/Vol]131 mmol/L Jnz070 - 145 mmol/LRemisol ChemTroponin HS3.00 pg/mLLow10.10 - 27.10 pg/mL Remisol ChemComment on above:Interpretive Data: The 95% CI (Confidence Interval) PPV (Positive Predictive Value) for myocardial infarction in females is 38 pg/mL, in males 51 pg/mL. The results should be used in conjunction withclinical conditions of myocardial infarction. (Access High Sensitivity Troponin I Instructions For Use, Gustavo Patti, May 2018)Urea nitrogen [Mass/Vol]9 mg/dLNormal5 - 21 mg/dLRemisol ChemUrea nitrogen/Creatinine [Mass ratio]18 mg/twMsflax90 - 20Remisol ChemCOAGULATION Ordered By: Rosanna Phillips on 57-22-6357wMHY Coag (PPP) [Time]28.9 nSjuglz08.1 - 36.5 second(s)[facility] Auto CoagComment on above:Interpretive Data: Parameter 15 days - 4 weeks 1 [...] coagulation reagent and instrumentation as [facility]. Currently there are no coagulation studies available worldwide for children to 14 days, andno normal ranges. Heparin therapeutic range (represented by Anti-Factor Xa activity of 0.2 - 0.4 U/mL) corresponds to PTT of 56.6 - 109.0 sec.INR Coag (PPP) [Relative time]0.85 {INR}Invalid Interpretation CodeMERCY HOSPITAL [facility] [place] Auto CoagComment on above:Interpretive Data: INR results are specifically intended to assess patients stabilized on long-term Anticoagulation therapy suggested INR s Less Intensive Anticoagulation 2.0 3.0 Conventional Range 3.0 4.5PT Coag (PPP) [Time]9.5 sNormal9.4 - 12.5 second(s) [facility] Auto CoagComment on above:Interpretive Data: 15 days - 4 weeks 1 - [...] coagulation reagent and instrumentation as [facility]. Currently there are no coagulation studies available worldwide for children to 14 days, andno normal ranges.ED Clinical Summaryon [id number] Clinical SummaryED Clinical Summary [place] [id number] ED Clinical Summary Person Information Name: RACHEL MCGARRY Katalina/[facility] Age: 44 Years : 1980 Sex: Female Language: Uruguayan PCP: AJIT PETTIT CNP Marital Status: Phone: [phone] Visit Id: Visit Reason: Syncope/Near syncope; Body [...] 07/09/2024 15:24:59 07/09/2024 15:24:59 07/09/2024 15:24:59 ADDRESS: [address] [place] [phone] PHYS DOC NOTES: MEDICAL INFORMATION: Prescriptions Given: [...] up: With: Address: When: AJIT PETTIT [address] [place] [id number] Business (1) In 3 days 07/12/2024 Comments: [...] new or worsening symptoms. DIAGNOSIS: Malaise; Viral syndromeNormalBrown Memorial Hospital Clinical SummaryED Clinical Summary [place] [id number] ED Clinical Summary Person Information Name: RACHEL MCGARRY Bib Katalina/[facility] Age: 44 Years : 1980 Sex: Female Language: Uruguayan PCP: AJIT PETTIT CNP Marital Status: Phone: [phone] Visit Id: Visit Reason: Syncope/Near syncope; Body [...] 07/09/2024 13:32:08 Discharge Request 07/09/2024 14:17:25 ADDRESS: [address] [place] [id number] PHYS DOC NOTES: MEDICAL INFORMATION: Prescriptions Given: [...] up: With: Address: When: AJIT PETTIT [address] [place] [address] [employer] ([employer] In 3 days 07/12/2024 Comments: Call the [...] new or worsening symptoms. DIAGNOSIS: Malaise; Viral syndromeNormalFisher Cuyahoga Medical CenterED Note-Physicianon [id number] Note-PhysicianED Note-Physician Basic Information Time Seen: Ambrose Cedeño DO. 07/09/2024 13:18 Chief Complaint really shakey, light headed and I feel llike I'm gonna pass out . pt verbalized has been sick for 1 week and been to two different hospitals and diagnosised wiht low sodium and elevated WBC. pt had CT of abd and x-ray and went to [facility] [place] History of Present Illness 44-year-old female to the emergency department with chief complaint of feeling unwell for the last week. She reports she has had malaise, fatigue, intermittently shaky, felt lightheaded earlier. She reports that she has been seen both at [facility] and some urgency department in [facility] emergency department this week for this [...] dry clinically. Previous labs and imaging from [facility] in [facility] reviewed. Aside from her mild [...] labs at [facility] and [facility]. Otherwise unremarkable. Mild hyponatremia which appears in line with the patient's baseline. Troponin is negative. hCG negative. Chest x-ray is without acute findings. Discussed findings with the patient. Likely viral syndrome. Recommended increase fluids, rest, Tylenol or ibuprofen at home. Recommended follow-up with her PCP. Return precautions were discussed. Allquestions were answered. The patient was discharged home. [...] AJIT PETTIT In 3 days 07/12/2024 EDT [address] [place] [address]- Business (1) Additional Instructions: Call the office [...] were prescribed medications you should discuss possible side- effects and drug interactions with your pharmacist. Call 911 or go to the nearest Emergency Department if you develop any new or worsening symp (more content not included)...[facility] Healthcare SystemComment on above:Result Comment: Electronically Signed By: Ambrose Cedeño DO\.br\Date and Time Signed: 07/09/24 14:21 EDTED Patient Summaryon [id number] Patient SummaryED Patient Summary [address] [address] Patient Discharge Instructions Person Information Name: RACHEL MCGARRY Age: 44 Years Arrival Date: 07/09/2024 12:39:08 Discharge Diagnosis: Malaise; Viral syndrome Primary Care Physician: AJIT PETTIT CNP Provider Information Primary Provider: Ambrose Cedeño DO Advanced Birdcage Assembler:None The exam and treatment you received in the Emergency Department were for an urgent problem and are not intended as complete care. It is important that you follow up with a doctor, nurse practitioner,or physician?s commercial escrow assistant for ongoing care. If your symptoms [...] Address: When: AJIT PETTIT [address] [place] [address] Business (1) In 3 days [...] opioids can be used to help relieve ofukfqjn-xb-lvjekl pain and are often prescribed following a [...] and have fewer risks and side effects. Optionsmay include: ? Pain relievers such as acetaminophen, [...] secure place a (more content not included)... [facility] Patient SummaryED Patient Summary [address] [address] Patient Discharge Instructions Person Information Name: RACHEL MCGARRY Age: 44 Years Arrival Date: 07/09/2024 12:39:08 Discharge Diagnosis: Malaise; Viral syndrome Primary Care Physician: AJIT PETTIT CNP Provider Information Primary Provider: Ambrose Cedeño DO Advanced Birdcage Assembler:None The exam and treatment you received in the Emergency Department were for an urgent problem and are not intended as complete care. It is important that you follow up with a doctor, nurse practitioner,or physician?s commercial escrow assistant for ongoing care. If your symptoms [...] Address: When: AJIT PETTIT [address] [place] [address] Business (1) In 3 days [...] opioids can be used to help relieve belxssxs-ws-wkazio pain and are often prescribed following a [...] and have fewer risks and side effects. Optionsmay include: ? Pain relievers such as acetaminophen, [...] secure place a (more content not included)... [facility] Healthcare SystemHEMATOLOGYOrdered By: SYSTEM SYSTEM on 45-06-5413Wvdlxgmvo/100 WBC (Bld)1.0 %Normal0.0 - 2.0 %Remisol Heme Basophils/Leukocytes Auto (Bld) [Pure # fraction]0.2 E9/LNormal0.0 - 0.2 E9/L Remisol HemeEosinophils (Bld) [#/Vol]0.1 E9/LNormal0.0 - 0.5 E9/LRemisol Heme Eosinophils/100 WBC (Bld)0.8 %Normal0.0 - 8.0 %Remisol HemeErythrocyte distribution width (RBC) [Ratio]13.2 %Xruhrj45.9 - 14.2 %Remisol HemeHematocrit (Bld) [Volume fraction]38.9 %Yzetwc63.0 - 46.0 %Remisol HemeHemoglobin (Bld) [Mass/Vol]13.4 g/kBRfghkv66.0 - 16.0 gm/dLRemisol HemeLymphocytes (Bld) [#/Vol] 3.7 E9/LNormal1.0 - 4.0 E9/LRemisol HemeLymphocytes/100 WBC (Bld)24.7 %Normal 14.0 - 50.0 %Remisol HemeMCH (RBC) [Entitic mass]30.4 ouVdpaha87.0 - 34.0 pg Remisol HemeMCHC (RBC) [Mass/Vol]34.5 g/jSJaignn54.4 - 36.0 gm/dLRemisol HemeMCV (RBC) [Entitic vol]88.1 oHSxreje82.0 - 100.0 fLRemisol HemeMonocytes (Bld) [#/Vol]0.7 E9/LNormal0.2 - 1.0 E9/LRemisol HemeMonocytes/100 WBC (Bld)4.4 % Normal4.0 - 14.0 %Remisol HemeNeutrophils (Bld) [#/Vol]10.3 E9/LHigh2.0 - 7.5 E9/LRemisol HemeNeutrophils/100 WBC (Bld)69.1 %Zvaprk25.0 - 75.0 %Remisol Heme Platelet mean volume (Bld) [Entitic vol]8.3 fLNormal6.4 - 10.8 fLRemisol Heme Platelets (Bld) [#/Vol]319.0 E9/NWzbjhw018.0 - 500.0 E9/LRemisol HemeRBC (Bld) [#/Vol]4.4 E12/LNormal4.3 - 5.9 E12/LRemisol HemeWBC corrected for nucl RBC Auto (Bld) [#/Vol]14.9 E9/LHigh4.0 - 11.0 E9/LRemisol HemeComment on above:Result Comment: Peripheral smear review performed.Hep Func Panelon 98-35-7153Dtynjpn [Mass/Vol]4.0 g/dLNormal3.3-5.0Community Memorial HospitalComment on above: Performed By: #### [id number] #### [facility] [address], [place] [address]Ecrqwxs/Globulin (S) [Mass conc ratio]1.9Inlcsc0.1-2.2[facility] Medical CenterComment on above:Performed By: #### [id number] #### [facility] [address], [place] [address]UDY [Catalytic activity/Vol]65 Int._Unit/OGzglig16-43BihpepCommunity Memorial HospitalComment on above:Performed By: #### [id number] #### [facility] [address], [place] [address]MHC No additional P-5'-P [Catalytic activity/Vol]10 Int._Unit/L Normal6-46Community Memorial HospitalComment on above:Performed By: #### [id number] #### [facility] [address], [place] [address]YVC [Catalytic activity/Vol]11 Int._Unit/LNormal5-43Community Memorial HospitalComment on above:Performed By: #### [id number] #### [facility] [address], [place] [address]Ufadgxwme [Mass/Vol]0.2 mg/dLNormal0.0-1.1FTogus VA Medical CenterComment on above:Performed By: #### [id number] #### [facility] [address], [place] [address]Gmtxhjumd.direct [Mass/Vol]0.0 mg/dLNormal0.0-0.4FTogus VA Medical CenterComment on above:Performed By: #### [id number] #### [facility] [address], [place] [address]Luomixfjo.indirect [Mass or moles/Vol]0.2 mg/dLNormal0.1-0.9 Community Memorial HospitalComment on above:Performed By: #### [id number] #### [facility] [address], [place] [address]Ixzjtzbg (S) [Mass/Vol]3.2 g/dLNormal1.4-4.0Community Memorial HospitalComment on above:Performed By: #### [id number] #### [facility] [address], [place] [address]Nuucyvu [Mass/Vol]7.2 g/dLNormal6.0-7.8Community Memorial HospitalComment on above:Performed By: #### [id number] #### [facility] [address], [place] [address]OX & PTTon 64-79-1336nUFS Coag (PPP) [Time]28.9 second(s)Normal 25.1-36.5FTogus VA Medical CenterComment on above:Result Comment: Parameter 15 days - 4 weeks [...] coagulation reagent and instrumentation as [facility] Currently there are no coagulation studies available worldwide for children to 14 days, andno normal ranges. Heparin therapeutic range (represented by Anti-Factor Xa activity of 0.2 - 0.4 U/mL) corresponds to PTT of 56.6 - 109.0 sec.Performed By: #### [id number] #### [facility] [address], [place] [address]KTU Coag (PPP) [Relative time]0.85 {INR}Invalid Interpretation CodeFerGrace Medical CenterComment on above:Result Comment: INR results are specifically intended to assess patients stabilized on long-term Anticoagulation therapy suggested INR?s ?Less Intensive Anticoagulation? 2.0 ? 3.0 Conventional Range 3.0 ? 4.5Performed By: #### [id number] #### [facility] [address], [place] [address]GB Coag (PPP) [Time]9.5 second(s)Normal9.4-12.5FTogus VA Medical CenterComment on above:Result Comment: 15 days - 4 weeks 1 [...] coagulation reagent and instrumentation as [facility]. Currently there are no coagulation studies available worldwide for children to 14 days, andno normal ranges.Performed By: #### [id number] #### [facility] [address], [place] [address]WPXXJQDHYttnyva By: Rosanna Phillips on 75-43-0500Effp HCG ( test) QlNegative (07/09/24 12:50 PM)NormalMER[facility] [place] Man SeroTroponin 0 Hr.on 33-64-4689Eoklzmyf HS3.00 pg/mLLow10.10-27.10Community Memorial HospitalComment on above:Result Comment: The 95% CI (Confidence Interval) PPV (Positive Predictive Value) for myocardial infarction in females is 38 pg/mL, in males 51 pg/mL. The results should be used in conjunction with clinical conditions of myocardial infarction. (Access High Sensitivity Troponin I Instructions For Use, Clarizen, May 2018)Performed By: #### [id number] #### [facility] [address], [place] [address]Ifovsjwv 1 Hr.on 89-31-6925Hsgvpwhi HS3.60 pg/mLLow10.10-27.10 Community Memorial HospitalComment on above:Result Comment: The 95% CI (Confidence Interval) PPV (Positive Predictive Value) for myocardial infarction in females is 38 pg/mL, in males 51 pg/mL. The results should be used in conjunction with clinical conditions of myocardial infarction. (Access High Sensitivity Troponin I Instructions For Use, Clarizen, May 2018)Performed By: #### [id number] #### [facility] [address], [place] [address]FR Chest Single Viewon [id number] Chest Single ViewExam Date/Time: 07/09/2024 13:32 EDT Reason for Exam: [...] Ka,r in mGy = na DAP = naNormalCommunity Memorial HospitaleGFRon 18-35-7238sUZH102 mL/min/1.73 m2 Normal>=59Community Memorial HospitalComment on above:Performed By: #### [id number] #### [facility] [address], [place] [address]Rkzertt aminotransferase [Enzymatic activity/volume] in Serum or PlasmaOrdered By: Jono Ferrari on 87-43-2988RNL [Catalytic activity/Vol]9 U/L 7-52As[facility] County Medical CenterAlbumin [Mass/volume] in Serum or Plasma by Bromocresol green (BCG) dye binding methoOrdered By: Jono Ferrari on 07-06-2024 Albumin BCG dye [Mass/Vol]4.2 g/dL3.5-5.7FEast [facility] Alkaline phosphatase [Enzymatic activity/volume] in Serum or PlasmaOrdered By: Jono Ferrari on 15-84-4473VQU [Catalytic activity/Vol]59 U/O87-472NbmglgcsqAshtabula County Medical CenterAspartate aminotransferase [Enzymatic activity/volume] in Serum or PlasmaOrdered By: Jono Ferrari on 10-74-7138KGY [Catalytic activity/Vol]10 U/STgs04-07OzmahmsaqAshtabula County Medical CenterBasophils Auto (Bld) [#/Vol]Ordered By: Jono Ferrari on 89-58-3555Zcbfbcwfh (Bld) [#/Vol]0.3 10*3/uL High0.0-0.2FEast Ohio Regional HospitalBasophils/100 WBC Auto (Bld)Ordered By: Jono Ferrari on 33-55-1966Krlanwwnc/100 WBC (Bld)1.1 %.[facility] County Medical CenterBilirubin.total [Mass/volume] in Serum or PlasmaOrdered By: Jono Ferrari on 58-59-3925Ijqqroyvk [Mass/Vol]0.3 mg/dL0.3-1.0[facility]abula [facility] CenterCalcium [Mass/volume] in Serum or PlasmaOrdered By: Jono Ferrari on 13-76-8241Qdegiru [Mass/Vol]9.2 mg/dL8.6-10.3FEast Ohio Regional HospitalCarbon dioxide, total [Moles/volume] in Serum or PlasmaOrdered By: Jono Ferrari on 73-41-0865PX2 [Moles/Vol]25.2 mmol/L21.0-31.0[facility] CenterChloride [Moles/volume] in Serum or PlasmaOrdered By: Jono Ferrari on 70-13-0649Lybudfzy [Moles/Vol]97 mmol/DGsn69-951MqrojbjowAshtabula County Medical CenterCreatinine [Mass/volume] in Serum or PlasmaOrdered By: Jono Ferrari on 57-01-1389Lccdaalvrh [Mass/Vol]0.59 mg/dLLow0.60-1.20[facility] CenterEosinophils Auto (Bld) [#/Vol]Ordered By: Jono Ferrari on 07-06-2024 Eosinophils (Bld) [#/Vol]0.1 10*3/uL0.0-0.45[facility] Eosinophils/100 WBC Auto (Bld)Ordered By: Jono Ferrari on 07-06-2024 Eosinophils/100 WBC (Bld)0.6 %.[facility] CenterErythrocyte distribution width Auto (RBC) [Ratio]Ordered By: Jono Ferrari on 07-06-2024 Erythrocyte distribution width (RBC) [Ratio]13.2 %11.9-15.3FEast [facility] Regional HospitalGlobulin Calc (S) [Mass/Vol]Ordered By: Jono Ferrari on 07-06-2024 Globulin (S) [Mass/Vol]3.0 g/dLAshtabula County Medical CenterGlucose [Mass/volume] in Serum or PlasmaOrdered By: Jono Ferrari on 23-86-2821Xncgqzs [Mass/Vol]142 mg/fLNaaq00-599IgegvhktiAshtabula County Medical CenterComment on above: ADA recommended reference rangeRandom Glucose Reference Range is dependent on time and content of last meal. Glucose of more than 200 mg/dL in a nonstressed, ambulatory subject supports the diagnosisof Diabetes Mellitus.Hematocrit Auto (Bld) [Volume fraction]Ordered By: Jono Ferrari on 97-38-7443Kdrchmrhzl (Bld) [Volume fraction]43.5 %34.0-46.4FEast [facility] Regional HospitalHemoglobin [Mass/volume] in BloodOrdered By: Jono Ferrari on 44-78-7218Fhmhuweqfw (Bld) [Mass/Vol]15.0 g/dL11.8-15.4FEast [facility] Regional HospitalLeukocytes [#/volume] corrected for nucleated erythrocytes in Blood by Automated coun Ordered By: Jono Ferrari on 31-81-8296HFZ corrected for nucl RBC Auto (Bld) [#/Vol]22.9 10*3/uLHigh3.8-11.6FEast [facility] HospitalLipase [Enzymatic activity/volume] in Serum or PlasmaOrdered By: Jono Ferrari on 17-23-9888Dnysot [Catalytic activity/Vol]48.0 U/L11.0-82.0[facility] CenterLymphocytes Auto (Bld) [#/Vol]Ordered By: Jono Ferrari on 40-68-4362Nthziylttxs (Bld) [#/Vol]5.8 10*3/uLHigh1.00-4.8[facility] CenterLymphocytes/100 WBC Auto (Bld)Ordered By: Jono Ferrari on 69-89-0022Jtsutnblgih/100 WBC (Bld)25.3 %.[facility] Auto (RBC) [Entitic mass]Ordered By: Jono Ferrari on 11-15-7034SBP (RBC) [Entitic mass]30.5 pg24.7-34.3FEast [facility] Regional HospitalMCHC Auto (RBC) [Mass/Vol]Ordered By: Jono Ferrari on 21-65-1729WGYN (RBC) [Mass/Vol]34.5 g/dL 32.0-35.0[facility] CenterMCV Auto (RBC) [Entitic vol]Ordered By: Jono Ferrari on 24-27-1773UEW (RBC) [Entitic vol]88.3 tA56-408YkfipixocAshtabula County Medical CenterMonocyte distribution width [Entitic volume] in Blood by AutomatedOrdered By: Jono Ferrari on 16-72-8650Norqxaow distribution width Auto (Bld) [Entitic vol]18.69 %0.00-20.00[facility] CenterMonocytes Auto (Bld) [#/Vol]Ordered By: Jono Ferrrai on 41-20-0599Ppxgaxfnb (Bld) [#/Vol] 1.6 10*3/uLHigh0.0-0.8[facility] CenterMonocytes/100 WBC Auto (Bld)Ordered By: Jono Ferrari on 03-16-5858Dsfcignvy/100 WBC (Bld)6.9 %. [facility] CenterNeutrophils Auto (Bld) [#/Vol]Ordered By: Jono Ferrari on 20-96-7634Ktgcpzdrula (Bld) [#/Vol]15.1 10*3/uLHigh1.8-7.7 [facility] CenterNeutrophils/100 WBC Auto (Bld)Ordered By: Jono Ferrari on 82-44-3448Nxxtmdanoow/100 WBC (Bld)66.1 %.[facility] CenterNo Panel InformationOrdered By: Jono Ferrari on 07-06-2024 Estimated GFR (CKD-EPI)> 60.0 mL/MinAshtabula County Medical CenterPharmacy Creatinine Clearance (Soon964.35[facility] CenterNucleated erythrocytes [Presence] in Blood by Automated countOrdered By: Jono Ferrari on 33-36-6788Fnutfzbfm RBC Auto Ql (Bld)0.0 /100{WBC}0-0.5FEast Ohio Regional HospitalPlatelet mean volume Auto (Bld) [Entitic vol]Ordered By: Jono Ferrari on 12-17-3460Djtraaup mean volume (Bld) [Entitic vol]7.2 fL6.3-10.7 [facility] CenterPlatelets Auto (Bld) [#/Vol]Ordered By: Jono Ferrari on 60-75-9480Unsbfyjzr (Bld) [#/Vol]387 10*3/lI495-448GruevexuoAshtabula County Medical CenterPotassium [Moles/volume] in Serum or PlasmaOrdered By: Jono Ferrari on 97-00-4120Beecykqeo [Moles/Vol]3.9 mmol/L3.5-5.1FEast [facility] Regional HospitalProtein [Mass/volume] in Serum or PlasmaOrdered By: Jono Ferrari on 03-20-3471Zuvmfud [Mass/Vol]7.2 g/dL6.4-8.9[facility] RBC Auto (Bld) [#/Vol]Ordered By: Jono Ferrari on 15-66-6226MVN (Bld) [#/Vol] 4.93 10*6/uL3.60-5.00[facility] Hospitalerum or plasma albumin/globulin mass ratioOrdered By: Jono Ferrari on 07-06-2024 Albumin/Globulin [Mass ratio]1.4 {ratio}[facility] Hospitalerum or plasma anion gap determinationOrdered By: Jono Ferrari on 46-26-0453Tyrvg gap [Moles/Vol]13.7 mmol/L6.0-15.0[facility] Hospitalodium [Moles/volume] in Serum or PlasmaOrdered By: Jono Ferrari on 02-31-4938Qrccmn [Moles/Vol]132 mmol/YDso745-113ZlrijjkntAshtabula County Medical CenterUrea nitrogen [Mass/volume] in Serum or PlasmaOrdered By: Jono Ferrari on 66-42-6277Hkwv nitrogen [Mass/Vol]8 mg/dL7-25[facility] CenterWBC Auto (Bld) [#/Vol]Ordered By: Jono Ferrari on 13-28-3713FVR (Bld) [#/Vol]22.9 10*3/uLHigh 3.8-11.6FEast Ohio Regional HospitalAlanine aminotransferase [Enzymatic activity/volume] in Serum or PlasmaOrdered By: Ajit Pettit on 25-70-3248ZKH [Catalytic activity/Vol]7 U/L7-52[facility] CenterAlbumin [Mass/volume] in Serum or Plasma by Bromocresol green (BCG) dye binding metho Ordered By: Ajit Pettit on 66-88-4605Zbpxuca BCG dye [Mass/Vol]3.8 g/dL3.5-5.7 [facility] CenterAlkaline phosphatase [Enzymatic activity/volume] in Serum or PlasmaOrdered By: Ajti Pettit on 83-92-8304XCV [Catalytic activity/Vol]54 U/O86-907XjxrgntjcAshtabula County Medical CenterAspartate aminotransferase [Enzymatic activity/volume] in Serum or PlasmaOrdered By: Ajit Pettit on 42-26-0694HHQ [Catalytic activity/Vol]8 U/PLfs30-79RhawdkcaqAshtabula County Medical CenterBasophils Auto (Bld) [#/Vol]Ordered By: Ajit Pettit on 07-04-2024 Basophils (Bld) [#/Vol]0.1 10*3/uL0.0-0.2FEast [facility] Hospital Basophils/100 WBC Auto (Bld)Ordered By: Ajit Pettit on 89-53-1474Sxggtwlzi/100 WBC (Bld)0.6 %.[facility] CenterBilirubin.total [Mass/volume] in Serum or PlasmaOrdered By: Ajit Pettit on 39-02-8935Poymxfjmp [Mass/Vol]0.3 mg/dL0.3-1.0[facility] CenterCalcium [Mass/volume] in Serum or PlasmaOrdered By: Ajit Pettit on 30-08-8411Byhikhq [Mass/Vol]8.9 mg/dL8.6-10.3 [facility] CenterCarbon dioxide, total [Moles/volume] in Serum or PlasmaOrdered By: Ajit Pettit on 36-58-8361VA4 [Moles/Vol]29.2 mmol/L 21.0-31.0[facility] CenterChloride [Moles/volume] in Serum or PlasmaOrdered By: Ajit Pettit on 19-00-4781Fvyjxlee [Moles/Vol]92 mmol/LLow 98-107[facility] CenterCholesterol [Mass/volume] in Serum or PlasmaOrdered By: Ajit Pettit on 06-08-8927Gqcsomwlvvq [Mass/Vol]185 mg/dL 140-200[facility] CenterComment on above:Chol less than 200 mg/dl low riskChol 201-239 mg/dl borderline riskChol 240 mg/dl and greater high riskCholesterol in LDL Calc [Mass/Vol]Ordered By: Ajit Pettit on 07-04-2024 Cholesterol in LDL [Mass/Vol]58 mg/dL0-100[facility] Comment on above:LDL ATP III CLASSIFICATIONLDL less than 100 mg/dL OptimalLDL 100-129 mg/dL Near or above dztcsreVBV622-792 mg/dL Borderline highLDL 160-189 mg/dL HighLDL greater than 189 mg/dL Very highCholesterol in VLDL Calc [Mass/Vol]Ordered By: Ajit Pettit on 96-80-8517Bypwbwzdfip in VLDL [Mass/Vol]78 mg/dLAshtabula County Medical CenterCreatinine [Mass/volume] in Serum or PlasmaOrdered By: Ajit Pettit on 56-96-5614Ehmgbykglr [Mass/Vol]0.61 mg/dL 0.60-1.20[facility] CenterEosinophils Auto (Bld) [#/Vol]Ordered By: Ajit Pettit on 56-44-9857Oqrgvtovmyb (Bld) [#/Vol]0.1 10*3/uL0.0-0.45 [facility] CenterEosinophils/100 WBC Auto (Bld)Ordered By: Ajit Pettit on 39-52-0637Fjztcobpwzn/100 WBC (Bld)0.5 %.[facility] CenterErythrocyte distribution width Auto (RBC) [Ratio]Ordered By: Aijt Pettit on 55-17-0937Ksbogrtlvjb distribution width (RBC) [Ratio]13.0 %11.9-15.3 [facility] CenterGlobulin Calc (S) [Mass/Vol]Ordered By: Ajit Pettit on 06-96-0384Zubrbszw (S) [Mass/Vol]2.1 g/dLAshtabula County Medical CenterGlucose [Mass/volume] in Serum or PlasmaOrdered By: Ajit Pettit on 25-27-5161Worjlyd [Mass/Vol]164 mg/oHUrvn29-380MbwvowuqvAshtabula County Medical Center Comment on above:ADA recommended reference rangeRandom Glucose Reference Range is dependent on time and content of last meal. Glucose of more than 200 mg/dL in a nonstressed, ambulatory subject supports the diagnosisof Diabetes Mellitus. Hematocrit Auto (Bld) [Volume fraction]Ordered By: Ajit Pettit on 07-04-2024 Hematocrit (Bld) [Volume fraction]40.0 %34.0-46.4FEast Ohio Regional HospitalHemoglobin [Mass/volume] in BloodOrdered By: Ajit Pettit on 07-04-2024 Hemoglobin (Bld) [Mass/Vol]13.7 g/dL11.8-15.4FEast [facility] Leukocytes [#/volume] corrected for nucleated erythrocytes in Blood by Automated counOrdered By: Ajit Pettit on 75-01-6008TEV corrected for nucl RBC Auto (Bld) [#/Vol]19.3 10*3/uLHigh3.8-11.6FEast [facility] HospitalLymphocytes Auto (Bld) [#/Vol]Ordered By: Ajit Pettit on 31-27-8026Mweqcmgxdud (Bld) [#/Vol]4.7 10*3/uL1.00-4.8[facility] CenterLymphocytes/100 WBC Auto (Bld)Ordered By: Ajit Pettit on 12-94-9098Bhrdjzlpugt/100 WBC (Bld)24.6 %. [facility] Auto (RBC) [Entitic mass]Ordered By: Ajit Pettit on 47-36-6183GUS (RBC) [Entitic mass]30.0 pg24.7-34.3FEast [facility] Regional HospitalMCHC Auto (RBC) [Mass/Vol]Ordered By: Ajit Pettit on 07-04-2024 MCHC (RBC) [Mass/Vol]34.2 g/dL32.0-35.0[facility] CenterMCV Auto (RBC) [Entitic vol]Ordered By: Ajit Pettit on 52-70-0919CYZ (RBC) [Entitic vol]87.9 lQ35-057ZinvdargfAshtabula County Medical CenterMonocytes Auto (Bld) [#/Vol] Ordered By: Ajit Pettit on 46-77-4119Erzhmkcse (Bld) [#/Vol]1.5 10*3/uLHigh 0.0-0.8[facility] CenterMonocytes/100 WBC Auto (Bld)Ordered By: Ajit Pettit on 55-93-7287Ryisswjnb/100 WBC (Bld)7.9 %.[facility] CenterNeutrophils Auto (Bld) [#/Vol]Ordered By: Ajit Pettit on 82-51-7629Uwenmkvaveu (Bld) [#/Vol]12.8 10*3/uLHigh1.8-7.7FEast Ohio Regional HospitalNeutrophils/100 WBC Auto (Bld)Ordered By: Ajit Pettit on 51-28-5558Nogzqncniuu/100 WBC (Bld)66.4 %.[facility] CenterNo Panel InformationOrdered By: Ajit Pettit on 02-95-5391Kdzhxkmmc GFR (CKD-EPI)> 60.0 mL/MinAshtabula County Medical CenterPharmacy Creatinine Clearance (Chem N/AFEast [facility] Regional HospitalNucleated erythrocytes [Presence] in Blood by Automated countOrdered By: Ajit Pettit on 11-11-6439Uxmimgfzo RBC Auto Ql (Bld)0.1 /100{WBC}0-0.5FEast [facility] Regional HospitalPlatelet mean volume Auto (Bld) [Entitic vol]Ordered By: Ajit Pettit on 49-84-2849Pdroktcg mean volume (Bld) [Entitic vol]7.0 fL6.3-10.7FEast [facility] Hospital Platelets Auto (Bld) [#/Vol]Ordered By: Ajit Pettit on 98-15-6402Imcwepmwk (Bld) [#/Vol]350 10*3/pO283-040LrvjsydvoAshtabula County Medical CenterPotassium [Moles/volume] in Serum or PlasmaOrdered By: Ajit Pettit on 38-04-5765Uwblwvnbh [Moles/Vol]4.6 mmol/L3.5-5.1[facility] CenterProtein [Mass/volume] in Serum or PlasmaOrdered By: Ajit Pettit on 01-97-0842Ttfabyl [Mass/Vol]5.9 g/dLLow6.4-8.9[facility] CenterRBC Auto (Bld) [#/Vol]Ordered By: Ajit Pettit on 02-60-9267WJO (Bld) [#/Vol]4.55 10*6/uL 3.60-5.00[facility] Hospitalerum or plasma albumin/globulin mass ratioOrdered By: Ajit Pettit on 36-88-6178Aswgbpm/Globulin [Mass ratio]1.8 {ratio}[facility] Hospitalerum or plasma anion gap determination Ordered By: Ajit Pettit on 41-72-2127Beafs gap [Moles/Vol]13.4 mmol/L6.0-15.0 [facility] Hospitalerum or plasma high density lipoprotein (HDL) cholesterol measurementOrdered By: Ajit Pettit on 94-69-9618Faedjjdhlbu in HDL [Mass/Vol]48 mg/gF52-54IcdaiiczhAshtabula County Medical CenterComment on above:HDL CHOL ATP-III CLASSIFICATION Cardiovascular RiskHDL > or equal to 60 mg/dL LOWHDL < 40 mg/dL HIGHSerum or plasma total cholesterol/high density lipoprotein (HDL) cholesterol mass ratOrdered By: Ajit Pettit on 07-04-2024 Cholesterol.total/Cholesterol in HDL [Mass ratio]3.9 {ratio}<5.0[facility] Hospitalodium [Moles/volume] in Serum or PlasmaOrdered By: Ajit Pettit on 79-14-5290Yfcmgy [Moles/Vol]130 mmol/OZlr483-965QhuzzmbccAshtabula County Medical CenterTriglyceride [Mass/volume] in Serum or PlasmaOrdered By: Ajit Pettit on 81-75-8955Hgjtvcdzkabx [Mass/Vol]393 mg/dLHigh0-149[facility] CenterComment on above:TRIG ATP III CLASSIFICATIONTRIG less than 150 mg/dL NormalTRIG 150-199 mg/dL Borderline highTRIG 200-500 mg/dL High TRIG greater than 500 mg/dL Very highStandard traceable to the Center for Disease Co nrtrol and Prevention (CDC) test method.Urea nitrogen [Mass/volume] in Serum or PlasmaOrdered By: Ajit Pettit on 00-95-9067Hmev nitrogen [Mass/Vol]6 mg/dLLow 7-25[facility] CenterWBC Auto (Bld) [#/Vol]Ordered By: Ajit Pettit on 43-90-6245CUU (Bld) [#/Vol]19.3 10*3/uLHigh3.8-11.6FEast [facility] Regional HospitalAlanine aminotransferase [Enzymatic activity/volume] in Serum or PlasmaOrdered By: Ajit Pettit on 05-59-7211CUP [Catalytic activity/Vol]11 U/L 7-52[facility] CenterAlbumin [Mass/volume] in Serum or Plasma by Bromocresol green (BCG) dye binding methoOrdered By: Ajit Pettit on 05-16-2024 Albumin BCG dye [Mass/Vol]4.2 g/dL3.5-5.7FEast [facility] Alkaline phosphatase [Enzymatic activity/volume] in Serum or PlasmaOrdered By: Ajit Pettit on 79-17-5244ING [Catalytic activity/Vol]62 U/Y59-909GkowauzqvAshtabula County Medical CenterAspartate aminotransferase [Enzymatic activity/volume] in Serum or PlasmaOrdered By: Ajit Pettit on 36-55-1157ANZ [Catalytic activity/Vol]11 U/FSbi06-44GbpoltictAshtabula County Medical CenterBasophils Auto (Bld) [#/Vol]Ordered By: Ajit Pettit on 71-66-2636Pnbbbfyhh (Bld) [#/Vol]0.1 10*3/uL 0.0-0.2FEast [facility] Regional HospitalBasophils/100 WBC Auto (Bld)Ordered By: Ajit Pettit on 97-25-7611Abslsgplz/100 WBC (Bld)0.6 %.[facility] CenterBilirubin.total [Mass/volume] in Serum or PlasmaOrdered By: Ajit Pettit on 37-76-8237Zxxuvuuzt [Mass/Vol]0.3 mg/dL0.3-1.0[facility] CenterCalcium [Mass/volume] in Serum or PlasmaOrdered By: Ajit Pettit on 21-37-0929Fwqipiv [Mass/Vol]9.0 mg/dL8.6-10.3FEast [facility] HospitalCarbon dioxide, total [Moles/volume] in Serum or PlasmaOrdered By: Ajit Pettit on 29-57-3258RO6 [Moles/Vol]26.0 mmol/L21.0-31.0[facility] CenterChloride [Moles/volume] in Serum or PlasmaOrdered By: Ajit Pettit on 36-83-1498Pnpyryuk [Moles/Vol]96 mmol/ITdv16-752RzvpzdhouAshtabula County Medical CenterCholesterol [Mass/volume] in Serum or PlasmaOrdered By: Ajit Pettit on 55-34-7323Jxujzldpyww [Mass/Vol]237 mg/jYUiyz972-387HyqithetcAshtabula County Medical CenterComment on above:Chol less than 200 mg/dl low riskChol 201-239 mg/dl borderline riskChol 240 mg/dl and greater high riskCholesterol in LDL Calc [Mass/Vol]Ordered By: Ajit Pettit on 92-93-4572Phvjdcbryfo in LDL [Mass/Vol]130 mg/dLHigh0-100[facility] CenterComment on above:LDL ATP III CLASSIFICATIONLDL less than 100 mg/dL OptimalLDL 100-129 mg/dL Near or above skolzgsBNL538-767 mg/dL Borderline highLDL 160-189 mg/dL HighLDL greater than 189 mg/dL Very highCholesterol in VLDL Calc [Mass/Vol]Ordered By: Ajit Pettit on 93-93-9010Xzrukuqtgwa in VLDL [Mass/Vol]64 mg/dLAshtabula County Medical CenterCreatinine [Mass/volume] in Serum or PlasmaOrdered By: Ajit Pettit on 95-36-9644Hklsgaozun [Mass/Vol]0.47 mg/dLLow0.60-1.20[facility] CenterEosinophils Auto (Bld) [#/Vol]Ordered By: Ajit Pettit on 05-16-2024 Eosinophils (Bld) [#/Vol]0.1 10*3/uL0.0-0.45[facility] Eosinophils/100 WBC Auto (Bld)Ordered By: Ajit Pettit on 05-16-2024 Eosinophils/100 WBC (Bld)0.4 %.[facility] CenterErythrocyte distribution width Auto (RBC) [Ratio]Ordered By: Ajit Pettit on 05-16-2024 Erythrocyte distribution width (RBC) [Ratio]13.3 %11.9-15.3FEast [facility] Regional HospitalGlobulin Calc (S) [Mass/Vol]Ordered By: Ajit Pettit on 05-16-2024 Globulin (S) [Mass/Vol]2.5 g/dLAshtabula County Medical CenterGlucose [Mass/volume] in Serum or PlasmaOrdered By: Ajit Pettit on 94-60-6380Nyyohpj [Mass/Vol]74 mg/rF15-793FviptqcgwAshtabula County Medical CenterComment on above:ADA recommended reference rangeRandom Glucose Reference Range is dependent on time and content of last meal. Glucose of more than 200 mg/dL in a nonstressed, ambulatory subject supports the diagnosisof Diabetes Mellitus.Glucose mean value [Mass/volume] in Blood Estimated from glycated hemoglobinOrdered By: Ajit Pettit on 30-30-9759Xrrwltf glucose Estimated from glycated hemoglobin (Bld) [Mass/Vol]137 mg/dLAshtabula County Medical CenterHematocrit Auto (Bld) [Volume fraction]Ordered By: Ajit Pettit on 76-15-0484Pztfosaexd (Bld) [Volume fraction]41.1 %34.0-46.4FEast Ohio Regional HospitalHemoglobin A1c percentageOrdered By: Ajit Pettit on 90-91-6162TwS9w (Bld) [Mass fraction]6.4 % High4.3-5.6FEast Ohio Regional HospitalComment on above:Increased risk for diabetes: 5.7 - 6.4diabetes: >6.4glycemic control for adults with diabetes: &l t;7.0Hemoglobin [Mass/volume] in BloodOrdered By: Ajit Pettit on 05-16-2024 Hemoglobin (Bld) [Mass/Vol]14.1 g/dL11.8-15.4FEast [facility] Hospital Leukocytes [#/volume] corrected for nucleated erythrocytes in Blood by Automated counOrdered By: Ajit Pettit on 15-07-4800EJX corrected for nucl RBC Auto (Bld) [#/Vol]15.0 10*3/uLHigh3.8-11.6FEast [facility] HospitalLymphocytes Auto (Bld) [#/Vol]Ordered By: Ajit Pettit on 72-34-3724Tofyiuknfsy (Bld) [#/Vol]5.0 10*3/uLHigh1.00-4.8[facility] CenterLymphocytes/100 WBC Auto (Bld)Ordered By: Ajit Pettit on 28-37-5962Eeelsrverlt/100 WBC (Bld) 33.0 %.[facility] Auto (RBC) [Entitic mass]Ordered By: Ajit Pettit on 40-68-4463FGP (RBC) [Entitic mass]30.3 pg24.7-34.3FEast Ohio Regional HospitalMCHC Auto (RBC) [Mass/Vol]Ordered By: Ajit Pettit on 49-12-7163OJVA (RBC) [Mass/Vol]34.3 g/dL32.0-35.0[facility] CenterMCV Auto (RBC) [Entitic vol]Ordered By: Ajit Pettit on 27-94-3088GNW (RBC) [Entitic vol]88.4 hI42-461SmocagujoAshtabula County Medical CenterMonocytes Auto (Bld) [#/Vol]Ordered By: Ajit Pettit on 95-39-9347Tneqfwpvb (Bld) [#/Vol]0.7 10*3/uL0.0-0.8[facility] CenterMonocytes/100 WBC Auto (Bld) Ordered By: Ajit Pettit on 42-62-3632Mklzsvrtj/100 WBC (Bld)4.4 %.[facility] CenterNeutrophils Auto (Bld) [#/Vol]Ordered By: Ajit Pettit on 60-20-8059Wxkefvoaplp (Bld) [#/Vol]9.3 10*3/uLHigh1.8-7.7FEast Ohio Regional HospitalNeutrophils/100 WBC Auto (Bld)Ordered By: Ajit Pettit on 24-03-2222Nnzxufpfwsg/100 WBC (Bld)61.6 %.[facility] CenterNo Panel InformationOrdered By: Ajit Pettit on 24-09-0889Hyguztaxn GFR (CKD-EPI)> 60.0 mL/MinAshtabula County Medical CenterPharmacy Creatinine Clearance (Chem N/AFEast [facility] Regional HospitalNucleated erythrocytes [Presence] in Blood by Automated countOrdered By: Ajit Pettit on 66-65-9999Chbhxzjyg RBC Auto Ql (Bld)0.1 /100{WBC}0-0.5FEast Ohio Regional HospitalPlatelet mean volume Auto (Bld) [Entitic vol]Ordered By: Ajit Pettit on 71-60-1085Jkjrjsxi mean volume (Bld) [Entitic vol]7.9 fL6.3-10.7FEast [facility] Hospital Platelets Auto (Bld) [#/Vol]Ordered By: Ajit Pettit on 14-08-6403Umdzzdnnn (Bld) [#/Vol]400 10*3/oR144-423MehssmfcxAshtabula County Medical CenterPotassium [Moles/volume] in Serum or PlasmaOrdered By: Ajit Pettit on 33-53-1145Uozzywzmm [Moles/Vol]4.1 mmol/L3.5-5.1FEast [facility] Regional HospitalProtein [Mass/volume] in Serum or PlasmaOrdered By: Ajit Pettit on 69-23-5775Rmvrxbe [Mass/Vol]6.7 g/dL6.4-8.9[facility] CenterRBC Auto (Bld) [#/Vol] Ordered By: Ajit Pettit on 37-04-6947IJH (Bld) [#/Vol]4.64 10*6/uL3.60-5.00 [facility] Hospitalerum or plasma albumin/globulin mass ratio Ordered By: Ajit Pettit on 03-20-9656Rcrzdge/Globulin [Mass ratio]1.7 {ratio} [facility] Hospitalerum or plasma anion gap determinationOrdered By: Ajit Pettit on 15-93-4663Sruoh gap [Moles/Vol]13.1 mmol/L6.0-15.0[facility] Hospitalerum or plasma high density lipoprotein (HDL) cholesterol measurementOrdered By: Ajit Pettit on 02-87-4718Znkzihhabjj in HDL [Mass/Vol]43 mg/jA92-56HjamxeptkAshtabula County Medical CenterComment on above:HDL CHOL ATP-III CLASSIFICATION Cardiovascular RiskHDL > or equal to 60 mg/dL LOWHDL < 40 mg/dL HIGHSerum or plasma total cholesterol/high density lipoprotein (HDL) cholesterol mass ratOrdered By: Ajit Pettit on 05-16-2024 Cholesterol.total/Cholesterol in HDL [Mass ratio]5.5 {ratio}<5.0[facility] Hospitalodium [Moles/volume] in Serum or PlasmaOrdered By: Ajit Pettit on 88-17-6226Odbrkd [Moles/Vol]131 mmol/WZho299-484EyjivkbqnAshtabula County Medical CenterThyrotropin [Units/volume] in Serum or PlasmaOrdered By: Ajit Pettit on 71-44-4215KFX Qn1.69 m[IU]/L0.45-5.33[facility] Triglyceride [Mass/volume] in Serum or PlasmaOrdered By: Ajit Millan on 86-47-6837Xdmhszaqnprn [Mass/Vol]321 mg/dLHigh0-149[facility] CenterComment on above:TRIG ATP III CLASSIFICATIONTRIG less than 150 mg/dL NormalTRIG 150-199 mg/dL Borderline highTRIG 200-500 mg/dL High TRIG greater than 500 mg/dL Very highStandard traceable to the Center for Disease Conrtrol and Prevention (CDC) test method.Urea nitrogen [Mass/volume] in Serum or Plasma Ordered By: Ajit Pettit on 14-70-7821Utpy nitrogen [Mass/Vol]5 mg/dLLow7-25 [facility] CenterVitamin D+Metabolites [Mass/volume] in Serum or PlasmaOrdered By: Ajit Pettit on 99-50-1226Mbkfaax D+Metabolites [Mass/Vol] 46.2 ng/iQ10-323IxrzmtuomAshtabula County Medical CenterComment on above:VITAMIN D STATUS 25(OH)VITAMIN D RANGE (ng/mL) Deficient <20 Insufficient 20 to <67Ysikupfrqy99 to 100Reference: Jovanni ENCINAS,Dominique NC, Gillian GRAHAM, et al. Evaluation,treatment, and prevention of vitamin D deficiency; an Endocrine Society clinical practice guideline. JCEM. 2010; 96(7):1911-30.WBC Auto (Bld) [#/Vol]Ordered By: Ajit Pettit on 41-33-1540PAM (Bld) [#/Vol]15.0 10*3/uL High3.8-11.6FEast [facility] Regional HospitalGlucose Glucometer (BldC) [Mass/Vol]Ordered By: Abi Sunshine on 78-65-0360Vqqwybw [Mass/Vol]140 mg/dL [facility] CenterComment on above:Random Glucose Reference Range is dependent on time and content of last meal. Glucose of more than 200 mg/dL in a nonstressed, ambulatory subject supports the diagnosis of Diabetes Mellitus.Alanine aminotransferase [Enzymatic activity/volume] in Serum or Plasma Ordered By: Ajit Pettit on 99-50-5459IFZ [Catalytic activity/Vol]8 U/L7-52 [facility] CenterAlbumin [Mass/volume] in Serum or Plasma by Bromocresol green (BCG) dye binding methoOrdered By: Ajit Pettit on 01-18-2024 Albumin BCG dye [Mass/Vol]4.1 g/dL3.5-5.7FEast [facility] Alkaline phosphatase [Enzymatic activity/volume] in Serum or PlasmaOrdered By: Ajit Pettit on 72-02-7214VOQ [Catalytic activity/Vol]58 U/C36-740TosxrdqohAshtabula County Medical CenterAspartate aminotransferase [Enzymatic activity/volume] in Serum or PlasmaOrdered By: Ajit Pettit on 34-51-6944AHB [Catalytic activity/Vol]9 U/MClj58-39TbyqrsnqdAshtabula County Medical CenterBasophils Auto (Bld) [#/Vol]Ordered By: Ajit Pettit on 59-67-7318Vkkbqilrw (Bld) [#/Vol]0.2 10*3/uL 0.0-0.2FEast [facility] Regional HospitalBasophils/100 WBC Auto (Bld)Ordered By: Ajit Pettit on 96-18-9485Dyzaykxwc/100 WBC (Bld)1.2 %.[facility] CenterBilirubin.total [Mass/volume] in Serum or PlasmaOrdered By: Ajit Pettit on 10-77-6433Nbbepvslj [Mass/Vol]0.4 mg/dL0.3-1.0[facility] CenterCalcium [Mass/volume] in Serum or PlasmaOrdered By: Ajit Pettit on 83-19-0720Eghcsbn [Mass/Vol]9.5 mg/dL8.6-10.3FEast Ohio Regional HospitalCarbon dioxide, total [Moles/volume] in Serum or PlasmaOrdered By: Ajit Pettit on 92-36-7525WS6 [Moles/Vol]22.0 mmol/L21.0-31.0[facility] CenterChloride [Moles/volume] in Serum or PlasmaOrdered By: Ajit Pettit on 16-47-3815Pwbdugxd [Moles/Vol]103 mmol/D99-779SabsroqygAshtabula County Medical CenterCholesterol [Mass/volume] in Serum or PlasmaOrdered By: Ajit Pettit on 13-87-0641Sbmranoctqc [Mass/Vol]188 mg/xH845-276YjgdaggfrAshtabula County Medical CenterComment on above:Chol less than 200 mg/dl low riskChol 201-239 mg/dl borderline riskChol 240 mg/dl and greater high riskCholesterol in LDL Calc [Mass/Vol]Ordered By: Ajit Pettit on 23-86-2013Xmzwsfickkh in LDL [Mass/Vol][facility] Cr[facility] HospitalComment on above:Test not performedCholesterol in LDL [Mass/volume] in Serum or PlasmaOrdered By: Ajit Pettit on 01-18-2024 Cholesterol in LDL [Mass/Vol]97 mg/dL0-100[facility] Comment on above:LDL ATP III CLASSIFICATIONLDL less than 100 mg/dL OptimalLDL 100-129 mg/dL Near or above rnefohjZPT938-234 mg/dL Borderline highLDL 160-189 mg/dL HighLDL greater than 189 mg/dL Very highCholesterol in VLDL Calc [Mass/Vol]Ordered By: Ajit Pettit on 32-96-4882Byskuufbhne in VLDL [Mass/Vol]88 mg/dLAshtabula County Medical CenterCreatinine [Mass/volume] in Serum or PlasmaOrdered By: Ajit Pettit on 20-95-7943Gfzwydojwf [Mass/Vol]0.42 mg/dLLow 0.60-1.20[facility] CenterEosinophils Auto (Bld) [#/Vol]Ordered By: Ajit Pettit on 76-67-2793Cfabjlcouku (Bld) [#/Vol]0.1 10*3/uL0.0-0.45 [facility] CenterEosinophils/100 WBC Auto (Bld)Ordered By: Ajit Pettit on 04-59-8076Bbtenpnuhph/100 WBC (Bld)0.9 %.[facility] CenterErythrocyte distribution width Auto (RBC) [Ratio]Ordered By: Ajit Pettit on 55-74-4799Wlbsntomapt distribution width (RBC) [Ratio]13.4 %11.9-15.3 [facility] CenterGlobulin Calc (S) [Mass/Vol]Ordered By: Ajit Pettit on 74-57-5048Yyhhzqye (S) [Mass/Vol]2.5 g/dLAshtabula County Medical CenterGlucose [Mass/volume] in Serum or PlasmaOrdered By: Ajit Pettit on 92-69-6504Wzzfmta [Mass/Vol]107 mg/zTLnsh66-131JtkudbadyAshtabula County Medical Center Comment on above:ADA recommended reference rangeRandom Glucose Reference Range is dependent on time and content of last meal. Glucose of more than 200 mg/dL in a nonstressed, ambulatory subject supports the diagnosisof Diabetes Mellitus. Hematocrit Auto (Bld) [Volume fraction]Ordered By: Ajit Pettit on 01-18-2024 Hematocrit (Bld) [Volume fraction]40.8 %34.0-46.4FEast Ohio Regional HospitalHemoglobin [Mass/volume] in BloodOrdered By: Ajit Pettit on 01-18-2024 Hemoglobin (Bld) [Mass/Vol]13.5 g/dL11.8-15.4FEast [facility] Iron [Mass/volume] in Serum or PlasmaOrdered By: Ajit Pettit on 30-87-5707Djjn [Mass/Vol]89 ug/tS35-780UfeunifsdAshtabula County Medical CenterIron binding capacity [Mass/volume] in Serum or PlasmaOrdered By: Ajit Spasic on 79-05-5766Vgjk binding capacity [Mass/Vol]374 ug/wR246-163QnfmsvkzkAshtabula County Medical CenterIron saturation [Mass Fraction] in Serum or PlasmaOrdered By: Ajit Lariossic on 92-83-6536Ehvc saturation [Mass fraction]23.8 %20-50[facility] CenterLeukocytes [#/volume] corrected for nucleated erythrocytes in Blood by Automated counOrdered By: Ajit Lariossic on 31-91-1666RHN corrected for nucl RBC Auto (Bld) [#/Vol]12.4 10*3/uLHigh3.8-11.6FEast [facility] Hospital Lymphocytes Auto (Bld) [#/Vol]Ordered By: Ajit Lariossic on 31-04-7155Qhkiuyjcjtj (Bld) [#/Vol]3.7 10*3/uL1.00-4.8[facility] CenterLymphocytes/100 WBC Auto (Bld)Ordered By: Ajit Lariossic on 48-17-2701Chmztarcsyt/100 WBC (Bld) 29.9 %.[facility] Auto (RBC) [Entitic mass]Ordered By: Ajit Lariossic on 22-66-9869NDH (RBC) [Entitic mass]28.9 pg24.7-34.3FMercy Health West HospitalHC Auto (RBC) [Mass/Vol]Ordered By: Ajit Spasic on 50-38-9217FJAP (RBC) [Mass/Vol]33.1 g/dL32.0-35.0[facility] CenterMCV Auto (RBC) [Entitic vol]Ordered By: Ajit Spasic on 56-13-4218KUS (RBC) [Entitic vol]87.3 jU27-006PsdcepaqwAshtabula County Medical CenterMicroalbumin [Mass/volume] in UrineOrdered By: Ajit Lariossic on 24-24-9175Aowkqyf DL <= 20 mg/L (U) [Mass/Vol]0.8 mg/dL0.0-1.8[facility] CenterMonocytes Auto (Bld) [#/Vol]Ordered By: Ajit Pettit on 62-43-1349Vloaylzut (Bld) [#/Vol] 0.9 10*3/uLHigh0.0-0.8[facility] CenterMonocytes/100 WBC Auto (Bld)Ordered By: Ajit Pettit on 40-95-9844Traexybuw/100 WBC (Bld)7.1 %. [facility] CenterNeutrophils Auto (Bld) [#/Vol]Ordered By: Ajit Pettit on 25-85-6963Gyaqrhsotdf (Bld) [#/Vol]7.6 10*3/uL1.8-7.7FEast Ohio Regional HospitalNeutrophils/100 WBC Auto (Bld)Ordered By: Ajit Pettit on 90-68-1794Xcvqlknmmqk/100 WBC (Bld)60.9 %.[facility] CenterNo Panel InformationOrdered By: Ajit Pettit on 79-83-3663Zwasfokai GFR (CKD-EPI)> 60.0 mL/MinAshtabula County Medical CenterPharmacy Creatinine Clearance (Chem N/AFEast Ohio Regional HospitalNucleated erythrocytes [Presence] in Blood by Automated countOrdered By: Ajit Pettit on 11-56-4042Ontmrpuht RBC Auto Ql (Bld)0.2 /100{WBC}0-0.5FEast Ohio Regional HospitalPlatelet mean volume Auto (Bld) [Entitic vol]Ordered By: Ajit Pettit on 07-13-2050Scyeantz mean volume (Bld) [Entitic vol]8.8 fL6.3-10.7FEast [facility] Hospital Platelets Auto (Bld) [#/Vol]Ordered By: Ajit Pettit on 61-47-5556Rwpgqloje (Bld) [#/Vol]275 10*3/oN672-140MxqwqmdimAshtabula County Medical CenterPotassium [Moles/volume] in Serum or PlasmaOrdered By: Ajit Pettit on 61-40-8774Wvsdgijkr [Moles/Vol]4.3 mmol/L3.5-5.1FEast Ohio Regional HospitalProtein [Mass/volume] in Serum or PlasmaOrdered By: Ajit Pettit on 63-68-0913Jopnupp [Mass/Vol]6.6 g/dL6.4-8.9[facility] CenterRBC Auto (Bld) [#/Vol] Ordered By: Ajit Pettit on 52-82-8192ZNG (Bld) [#/Vol]4.67 10*6/uL3.60-5.00 [facility] Hospitalerum or plasma albumin/globulin mass ratio Ordered By: Ajit Pettit on 38-43-8327Verktnu/Globulin [Mass ratio]1.6 {ratio} [facility] Hospitalerum or plasma anion gap determinationOrdered By: Ajit Pettit on 75-75-1097Diand gap [Moles/Vol]15.3 mmol/LHigh6.0-15.0 [facility] Hospitalerum or plasma high density lipoprotein (HDL) cholesterol measurementOrdered By: Ajit Pettit on 90-40-6939Ppsgogclsme in HDL [Mass/Vol]37 mg/xI13-08JwebcapnnAshtabula County Medical CenterComment on above:HDL CHOL ATP-III CLASSIFICATION Cardiovascular RiskHDL > or equal to 60 mg/dL LOWHDL < 40 mg/dL HIGHSerum or plasma total cholesterol/high density lipoprotein (HDL) cholesterol mass ratOrdered By: Ajit Pettit on 01-18-2024 Cholesterol.total/Cholesterol in HDL [Mass ratio]5.1 {ratio}<5.0[facility] Hospitalodium [Moles/volume] in Serum or PlasmaOrdered By: Ajit Pettit on 92-53-3721Ysfcqe [Moles/Vol]136 mmol/U217-639JjjqysbjbAshtabula County Medical CenterTransferrin [Mass/volume] in Serum or PlasmaOrdered By: Ajit Pettit on 27-15-6260Njiluoobuzn [Mass/Vol]267 mg/iS631-052JxpgewbvpAshtabula County Medical CenterTriglyceride [Mass/volume] in Serum or PlasmaOrdered By: Ajit Pettit on 73-96-0489Odluajkarzrc [Mass/Vol]441 mg/dLHigh0-149[facility] CenterComment on above:If the triglyceride result is greater than 400, LDLC and related calculations cannot be calculated and resulted.TRIG ATP III CLASSIFICATIONTRIG less than 150 mg/dL NormalTRIG 150-199 mg/dL Borderline highTRIG 200-500 mg/dL High TRIG greater than 500 mg/dL Very highStandard traceable to the Center for Disease Conrtrol and Prevention (CDC) test method. Urea nitrogen [Mass/volume] in Serum or PlasmaOrdered By: Ajit Pettit on 48-52-4156Xjqu nitrogen [Mass/Vol]10 mg/dL04-27[facility] WBC Auto (Bld) [#/Vol]Ordered By: Ajit Pettit on 48-69-2426PGJ (Bld) [#/Vol] 12.4 10*3/uLHigh3.8-11.6FEast Ohio Regional HospitalActivated partial thromboplastin time (aPTT) in platelet poor plasma by coagulation aOrdered By: Diego Noble on 24-69-6282mXKX Coag (PPP) [Time]28.2 s25.1-36.5FEast Ohio Regional HospitalComment on above:A hematocrit value greater than 55% may lead to inaccurate results in coagulation testing. Patientshaving hematocrit values >55% require a special collection tube for coagulation studies. Please c ontact the laboratory at [phone] for redraw instructions.Alanine aminotransferase [Enzymatic activity/volume] in Serum or PlasmaOrdered By: Diego Noble on 29-44-2162INI [Catalytic activity/Vol]10 U/L7[facility] CenterAlbumin [Mass/volume] in Serum or Plasma by Bromocresol green (BCG) dye binding methoOrdered By: Diego Noble on 96-83-5854Ncbrkqe BCG dye [Mass/Vol]3.7 g/dL3.5-5.7FEast Ohio Regional HospitalAlkaline phosphatase [Enzymatic activity/volume] in Serum or PlasmaOrdered By: Diego Noble on 15-74-7674CDA [Catalytic activity/Vol]84 U/W99-461VsxgqjqpdAshtabula County Medical CenterAspartate aminotransferase [Enzymatic activity/volume] in Serum or Plasma Ordered By: Diego Noble on 06-74-5471CFL [Catalytic activity/Vol]14 U/L13-39 [facility] CenterBasophils Auto (Bld) [#/Vol]Ordered By: Diego Noble on 67-96-5619Fglwceajv (Bld) [#/Vol]0.4 10*3/uL0.0-0.2FEast Ohio Regional HospitalBasophils/100 WBC Auto (Bld)Ordered By: Diego Noble on 26-33-0815Yoyblpnli/100 WBC (Bld)2.6 %.[facility] Bilirubin.total [Mass/volume] in Serum or PlasmaOrdered By: Diego Noble on 44-01-4740Merfxfttv [Mass/Vol]0.2 mg/dL0.3-1.0[facility] Calcium [Mass/volume] in Serum or PlasmaOrdered By: Diego Noble on 10-16-2023 Calcium [Mass/Vol]9.1 mg/dL8.6-10.3FEast [facility] Regional HospitalCarbon dioxide, total [Moles/volume] in Serum or PlasmaOrdered By: Diego Noble on 70-11-9092SL0 [Moles/Vol]25.9 mmol/L21.0-31.0[facility] Chloride [Moles/volume] in Serum or PlasmaOrdered By: Diego Noble on 64-14-3568Uhopxovh [Moles/Vol]101 mmol/F60-511UvluxwhuaAshtabula County Medical Center Creatinine [Mass/volume] in Serum or PlasmaOrdered By: Diego Noble on 15-26-5338Zkmxezljdq [Mass/Vol]0.55 mg/dL0.60-1.20[facility] CenterEosinophils Auto (Bld) [#/Vol]Ordered By: Diego Noble on 10-16-2023 Eosinophils (Bld) [#/Vol]0.5 10*3/uL0.0-0.45[facility] Eosinophils/100 WBC Auto (Bld)Ordered By: Diego Noble on 10-16-2023 Eosinophils/100 WBC (Bld)3.3 %.[facility] CenterErythrocyte distribution width Auto (RBC) [Ratio]Ordered By: Diego Noble on 10-16-2023 Erythrocyte distribution width (RBC) [Ratio]13.0 %11.9-15.3FEast Ohio Regional HospitalGlobulin Calc (S) [Mass/Vol]Ordered By: Diego Noble on 03-95-4651Qbajnosh (S) [Mass/Vol]2.6 g/dLAshtabula County Medical Center Glucose [Mass/volume] in Serum or PlasmaOrdered By: Diego Noble on 10-16-2023 Glucose [Mass/Vol]197 mg/yJ29-401TmmelrwpbAshtabula County Medical CenterComment on above:ADA recommended reference rangeRandom Glucose Reference Range is dependent on time and content of last meal. Glucose of more than 200 mg/dL in a nonstressed, ambulatory subject supports the diagnosisof Diabetes Mellitus. Hematocrit Auto (Bld) [Volume fraction]Ordered By: Diego Noble on 10-16-2023 Hematocrit (Bld) [Volume fraction]34.0 %34.0-46.4FEast [facility] Regional HospitalHemoglobin [Mass/volume] in BloodOrdered By: Diego Noble on 10-16-2023 Hemoglobin (Bld) [Mass/Vol]11.6 g/dL11.8-15.4FEast [facility] INR in Platelet poor plasma by Coagulation assayOrdered By: Diego Noble on 03-54-3455UAQ Coag (PPP) [Relative time]0.9 {INR}[facility] CenterComment on above:INR Therapeutic Range A) Pre- and Peroperative OAT started two weeks before surgery. NOT HIP SURGERY: 1.5 - 2.5 HIP SURGERY: 2 - 3B) Primary and secondary prevention of venous THROMBOSIS: 2 - 3C) Active venous thrombosis, pulmonary embolismand prevention of recurrent venous thrombosis: 2 - 3D) Prevention of arterial thromboembolismincluding patients with mechanical heart valves: 3 - 4.5Lactate [Moles/volume] in Serum or PlasmaOrdered By: Diego Noble on 67-55-7827Khicqbv [Moles/Vol]2.1 mmol/L0.5-2.2FEast Ohio Regional HospitalComment on above:Critical Result : Called to and read back by: MACO BECK at: 10/16/2023 12:33:20 by:RGLeukocytes [#/volume] corrected for nucleated erythrocytes in Blood by Automated counOrdered By: Diego Noble on 50-32-1431VCR corrected for nucl RBC Auto (Bld) [#/Vol]14.3 10*3/uL3.8-11.6 [facility] CenterLymphocytes Auto (Bld) [#/Vol]Ordered By: Diego Noble on 75-83-4400Cbracsfflaz (Bld) [#/Vol]4.9 10*3/uL1.00-4.8[facility] CenterLymphocytes/100 WBC Auto (Bld)Ordered By: Diego Noble on 06-21-4821Upxdkladztp/100 WBC (Bld)34.0 %.[facility] MCH Auto (RBC) [Entitic mass]Ordered By: Diego Noble on 81-53-1305AKS (RBC) [Entitic mass]30.3 pg24.7-34.3FEast Ohio Regional HospitalMCHC Auto (RBC) [Mass/Vol]Ordered By: Diego Noble on 47-75-7365TOAJ (RBC) [Mass/Vol]34.1 g/dL 32.0-35.0[facility] CenterMCV Auto (RBC) [Entitic vol]Ordered By: Diego Noble on 57-49-8224LCZ (RBC) [Entitic vol]88.7 zO07-650CuibitzchAshtabula County Medical CenterMonocyte distribution width [Entitic volume] in Blood by AutomatedOrdered By: Diego Noble on 50-73-2755Tpjojbyw distribution width Auto (Bld) [Entitic vol]20.62 %0.00-20.00[facility] CenterComment on above:For adults in ED, MDW > 20.0 may be associated with a higher risk of sepsis during the first 12 hrs of hospital admissionMonocytes Auto (Bld) [#/Vol] Ordered By: Diego Noble on 69-95-5154Zgtnbhmvj (Bld) [#/Vol]0.9 10*3/uL0.0-0.8 [facility] CenterMonocytes/100 WBC Auto (Bld)Ordered By: Deigo Nobel on 17-65-4199Nnagowhzv/100 WBC (Bld)6.3 %.[facility] CenterNeutrophils Auto (Bld) [#/Vol]Ordered By: Diego Noble on 10-16-2023 Neutrophils (Bld) [#/Vol]7.7 10*3/uL1.8-7.7FEast [facility] Hospital Neutrophils/100 WBC Auto (Bld)Ordered By: Diego Noble on 10-16-2023 Neutrophils/100 WBC (Bld)53.8 %.[facility] CenterNo Panel InformationOrdered By: Diego Noble on 16-01-4992Xzsdeyerz GFR (CKD-EPI)> 60.0 mL/MinAshtabula County Medical CenterPharmacy Creatinine Clearance (Bycw289.19 [facility] CenterNucleated erythrocytes [Presence] in Blood by Automated countOrdered By: Diego Noble on 08-29-5825Ybkuiefqg RBC Auto Ql (Bld)0.1 /100{WBC}0-0.5FEast Ohio Regional HospitalPlatelet mean volume Auto (Bld) [Entitic vol]Ordered By: Diego Noble on 96-77-2769Tpqxbfnd mean volume (Bld) [Entitic vol]6.7 fL6.3-10.7FEast [facility] Platelets Auto (Bld) [#/Vol]Ordered By: Diego Noble on 98-41-6161Yadnrfjsx (Bld) [#/Vol]454 10*3/sP953-336ZhuuwhstbAshtabula County Medical CenterPotassium [Moles/volume] in Serum or PlasmaOrdered By: Diego Noble on 10-16-2023 Potassium [Moles/Vol]4.3 mmol/L3.5-5.1FEast Ohio Regional HospitalProtein [Mass/volume] in Serum or PlasmaOrdered By: Diego Noble on 13-83-5393Kcflwhu [Mass/Vol]6.3 g/dL6.4-8.9[facility] CenterProthrombin time (PT) Ordered By: Diego Noble on 06-79-5139SQ Coag (PPP) [Time]9.9 s9.0-12.9 [facility] CenterComment on above:A hematocrit value greater than 55% may lead to inaccurate results in coagulation testing. Patientshaving hematocrit values >55% require a special collection tube for coagulation studies. Please contact the laboratory at [phone] for redraw instructions. RBC Auto (Bld) [#/Vol]Ordered By: Diego Noble on 13-07-9249RPQ (Bld) [#/Vol] 3.84 10*6/uL3.60-5.00[facility] Hospitalerum or plasma albumin/globulin mass ratioOrdered By: Diego Noble on 10-16-2023 Albumin/Globulin [Mass ratio]1.4 {ratio}[facility] Hospitalerum or plasma anion gap determinationOrdered By: Diego Noble on 29-41-7788Edyoa gap [Moles/Vol]14.4 mmol/L6.0-15.0[facility] Hospitalodium [Moles/volume] in Serum or PlasmaOrdered By: Diego Noble on 64-34-9521Hhwazp [Moles/Vol]137 mmol/I511-445KgbemrdefAshtabula County Medical CenterUrea nitrogen [Mass/volume] in Serum or PlasmaOrdered By: Diego Noble on 91-69-8783Bmjg nitrogen [Mass/Vol]12 mg/dL7-25[facility] CenterWBC Auto (Bld) [#/Vol]Ordered By: Diego Noble on 75-22-5115KZT (Bld) [#/Vol]14.3 10*3/uL 3.8-11.6FEast [facility] Regional HospitalBasophils Auto (Bld) [#/Vol]Ordered By: Ilene Lopez on 53-33-7002Rieamibcm (Bld) [#/Vol]0.1 10*3/uL0.0-0.2 [facility] CenterBasophils/100 WBC Auto (Bld)Ordered By: Ilene Lopez on 96-07-0467Waldwrmtt/100 WBC (Bld)0.4 %.[facility] CenterCalcium [Mass/volume] in Serum or PlasmaOrdered By: Ilene Lopez on 71-38-7885Gbimrtg [Mass/Vol]7.9 mg/dL8.6-10.3FEast [facility] HospitalCarbon dioxide, total [Moles/volume] in Serum or Plasma Ordered By: Ilene Lopez on 71-56-2926XK3 [Moles/Vol]22.6 mmol/L 21.0-31.0[facility] CenterChloride [Moles/volume] in Serum or PlasmaOrdered By: Ilene Lopez on 93-92-7561Pioddara [Moles/Vol]105 mmol/B13-606CmbyootsnAshtabula County Medical CenterClostridioides difficile toxin B tcdB gene [Presence] in Stool by NAYELY with probe deteOrdered By: BONG Velez on 10-09-2023. difficile toxin B tcdB gene NAYELY+probe Ql (Stl)Positive NegativeAshtabula County Medical CenterComment on above:Results calledat 1619 on 10/09/23 Testing performed by RT-PCRCreatinine [Mass/volume] in Serum or PlasmaOrdered By: Ilene Lopez on 43-96-3065Emnhblekly [Mass/Vol]0.48 mg/dL0.60-1.20[facility] CenterEosinophils Auto (Bld) [#/Vol] Ordered By: Ilene Lopez on 73-12-4872Ebpjfqbhwxc (Bld) [#/Vol]0.5 10*3/uL0.0-0.45[facility] CenterEosinophils/100 WBC Auto (Bld) Ordered By: Ilene Lopez on 61-09-9797Abjvcxhomjt/100 WBC (Bld)3.5 %. [facility] CenterErythrocyte distribution width Auto (RBC) [Ratio]Ordered By: Ilene Lopez on 80-08-6488Jrlgjzxwnez distribution width (RBC) [Ratio]13.2 %11.9-15.3FEast Ohio Regional HospitalGlucose Glucometer (BldC) [Mass/Vol]Ordered By: Salazar Cabrera on 00-89-9743Oehkyif [Mass/Vol]299 mg/dLAshtabula County Medical CenterComment on above:Random Glucose Reference Range is dependent on time and content of last meal. Glucose of more than 200 mg/dL in a nonstressed, ambulatory subject supports the diagnosis of Diabetes Mellitus.Glucose [Mass/volume] in Serum or PlasmaOrdered By: Ilene Lopez on 73-97-9385Rtztcdq [Mass/Vol]143 mg/yA11-018ZqbuhbnmyAshtabula County Medical CenterComment on above:ADA recommended reference rangeRandom Glucose Reference Range is dependent on time and content of last meal. Glucose of more than 200 mg/dL in a nonstressed, ambulatory subject supports the diagnosisof Diabetes Mellitus.Hematocrit Auto (Bld) [Volume fraction]Ordered By: Ilene Lopez on 59-47-0795Tmhdgxecfs (Bld) [Volume fraction]30.3 % 34.0-46.4FEast Ohio Regional HospitalHemoglobin [Mass/volume] in Blood Ordered By: Ilene Lopez on 68-93-7857Vddgsmnvaz (Bld) [Mass/Vol]10.3 g/dL11.8-15.4FEast Ohio Regional HospitalLeukocytes [#/volume] corrected for nucleated erythrocytes in Blood by Automated counOrdered By: Ilene Lopez on 27-68-7531UJH corrected for nucl RBC Auto (Bld) [#/Vol]13.6 10*3/uL3.8-11.6FEast [facility] HospitalLymphocytes Auto (Bld) [#/Vol] Ordered By: Ilene Lopez on 38-04-7493Anzksgzkiid (Bld) [#/Vol]2.2 10*3/uL1.00-4.8[facility] CenterLymphocytes/100 WBC Auto (Bld) Ordered By: Ilene Lopez on 63-93-8731Jleicgimfbb/100 WBC (Bld)16.5 %. [facility]H Auto (RBC) [Entitic mass]Ordered By: Ilene Lopez on 73-19-9802FDP (RBC) [Entitic mass]29.9 pg24.7-34.3FEast Ohio Regional HospitalMCHC Auto (RBC) [Mass/Vol]Ordered By: Ilene Calderon on 10-67-5591OMWX (RBC) [Mass/Vol]34.0 g/dL32.0-35.0[facility] CenterMCV Auto (RBC) [Entitic vol]Ordered By: Ilene Lopez on 41-45-2004NFG (RBC) [Entitic vol]88.1 uI27-360ZatjwgfekAshtabula County Medical Center Monocytes Auto (Bld) [#/Vol]Ordered By: Ilene Lopez on 10-09-2023 Monocytes (Bld) [#/Vol]1.3 10*3/uL0.0-0.8[facility] Monocytes/100 WBC Auto (Bld)Ordered By: Ilene Lopez on 10-09-2023 Monocytes/100 WBC (Bld)9.5 %.[facility] CenterNeutrophils Auto (Bld) [#/Vol]Ordered By: Ilene Lopez on 73-81-2443Fzumakpnhhi (Bld) [#/Vol]9.6 10*3/uL1.8-7.7FEast Ohio Regional HospitalNeutrophils/100 WBC Auto (Bld)Ordered By: Ilene Lopez on 32-86-9076Gpjrdimnjcv/100 WBC (Bld)70.1 %.[facility] CenterNo Panel InformationOrdered By: Salazar Cabrera on 43-49-2381Rwgvitw Glucose CommentGlu2: cleaned meterAshtabula County Medical CenterNo Panel InformationOrdered By: Ilene Lopez on 13-37-6649Frojhsbzv GFR (CKD-EPI)> 60.0 mL/MinAshtabula County Medical Center Pharmacy Creatinine Clearance (Iyun169.15[facility] Nucleated erythrocytes [Presence] in Blood by Automated countOrdered By: Ilene Lopez on 02-82-2198Ovmoshjrn RBC Auto Ql (Bld)0.1 /100{WBC}0-0.5 [facility] CenterPlatelet mean volume Auto (Bld) [Entitic vol] Ordered By: Ilene Lopez on 91-03-1805Sjlildlb mean volume (Bld) [Entitic vol]7.9 fL6.3-10.7FEast Ohio Regional HospitalPlatelets Auto (Bld) [#/Vol]Ordered By: Ilene Lopez on 33-87-4802Xcmzlhqbd (Bld) [#/Vol]242 10*3/cV633-148TfodudpliAshtabula County Medical CenterPotassium [Moles/volume] in Serum or PlasmaOrdered By: Ilene Lopez on 71-98-1155Zqubbacyd [Moles/Vol]3.4 mmol/L3.5-5.1FEast Ohio Regional HospitalRBC Auto (Bld) [#/Vol]Ordered By: Ilene Lopez on 01-32-3803JVW (Bld) [#/Vol]3.44 10*6/uL3.60-5.00 [facility] Hospitalerum or plasma anion gap determinationOrdered By: Ilene Lopez on 24-26-5782Wkjaw gap [Moles/Vol]11.8 mmol/L6.0-15.0 [facility] Hospitalodium [Moles/volume] in Serum or PlasmaOrdered By: Ilene Lopez on 96-14-5758Upawmh [Moles/Vol]136 mmol/V229-054 [facility] Hospitaltool bacteria identification by cultureOrdered By: BONG Velez on 46-67-2960Vmsghyyy identified Cx Nom (Stl)[facility] CenterUrea nitrogen [Mass/volume] in Serum or PlasmaOrdered By: Ilene Lopez on 14-66-8738Zizn nitrogen [Mass/Vol]6 mg/dL7-25 [facility] CenterWBC Auto (Bld) [#/Vol]Ordered By: Ilene Lopez on 78-56-4064OHW (Bld) [#/Vol]13.6 10*3/uL3.8-11.6FEast Ohio Regional HospitalAlanine aminotransferase [Enzymatic activity/volume] in Serum or PlasmaOrdered By: BONG Velez on 79-73-9702OSP [Catalytic activity/Vol]31 U/L7-52[facility] CenterAlbumin [Mass/volume] in Serum or Plasma by Bromocresol green (BCG) dye binding methoOrdered By: BONG Velez on 50-23-3672Djeuotr BCG dye [Mass/Vol]3.7 g/dL3.5-5.7FEast Ohio Regional HospitalAlkaline phosphatase [Enzymatic activity/volume] in Serum or PlasmaOrdered By: BONG Velez on 39-52-5868OTK [Catalytic activity/Vol]61 U/V10-618FrnzoaxyoAshtabula County Medical CenterAspartate aminotransferase [Enzymatic activity/volume] in Serum or PlasmaOrdered By: ARIELLE Velez on 02-27-0347DFI [Catalytic activity/Vol]40 U/M85-71AwihsbiaaAshtabula County Medical CenterAutomated erythrocytes count in urine sediment (number/area)Ordered By: BONG Velez on 22-62-4158PBK Auto (Urine sed) [#/Area]5-9 [HPF]0-4FEast [facility] Regional HospitalAutomated leukocytes count in urine sediment (number/area)Ordered By: BONG Velez on 95-26-1607QEG Auto (Urine sed) [#/Area]3-4 [HPF]0-4FEast [facility] Regional HospitalAutomated urine hyaline casts count (number/volume)Ordered By: BONG Velez on 02-66-4258Arajqoz casts Auto (U) [#/Vol]None seen [LPF]0-1FEast [facility] Regional HospitalBilirubin Test strip Ql (U)Ordered By: BONG Velez on 25-72-4145Iohxhjwrr Ql (U)1+NegativeAshtabula County Medical Center Bilirubin.total [Mass/volume] in Serum or PlasmaOrdered By: BONG Velez on 39-82-4953Iyavdvdcr [Mass/Vol]0.6 mg/dL0.3-1.0[facility] CenterCasts typing in urine sediment by light microscopyOrdered By: BONG Velez on 16-60-8622Wsnby LM Nom (Urine sed)None seen [LPF]None Seen [facility] CenterColor Auto (U)Ordered By: BONG Velez on 40-49-8461Exlch (U)OrangeYellowAshtabula County Medical CenterGlobulin Calc (S) [Mass/Vol]Ordered By: BONG Velez on 97-28-1186Gbnaevpa (S) [Mass/Vol]2.6 g/dLAshtabula County Medical CenterKetones Auto test strip (U) [Mass/Vol]Ordered By: BONG Velez on 82-47-3139Lsjatsf (U) [Mass/Vol] TraceNegativeAshtabula County Medical CenterLactate [Moles/volume] in Serum or PlasmaOrdered By: BONG Velez on 72-90-8889Yjwjrjr [Moles/Vol]1.9 mmol/L0.5-2.2FEast Ohio Regional HospitalNitrite Test strip Ql (U)Ordered By: BONG Velez on 49-46-4125Yrdsfuf Ql (U)NegativeNegativeAshtabula County Medical CenterProtein Auto test strip (U) [Mass/Vol]Ordered By: BONG Velez on 32-09-2906Kzpaomq (U) [Mass/Vol]30 mg/dLNegativeAshtabula County Medical CenterProtein [Mass/volume] in Serum or PlasmaOrdered By: ARIELLE Velez on 63-92-5256Rvfzikh [Mass/Vol]6.3 g/dL6.4-8.9[facility] Hospitalerum or plasma albumin/globulin mass ratioOrdered By: BONG Velez on 93-28-2405Tilahkc/Globulin [Mass ratio]1.4 {ratio} [facility] Hospitalpecific gravity Auto test strip (U) [Rel density]Ordered By: BONG Velez on 31-97-3052Sjpgtgps gravity (U) [Rel density]> 1.0501.001-1.030[facility] Hospitalquamous epithelial cells detection in urine sediment by light microscopyOrdered By: BONG Velez on 68-96-3298Wefexidyzh cells.squamous LM Ql (Urine sed)5-9 [HPF]0-2 [facility] CenterUrine bacteria detection by automated method Ordered By: BONG Velez on 46-45-1978Gaemkdnz Auto Ql (U)None seenNone SeenAshtabula County Medical CenterUrine clarity by refractometry automated Ordered By: BONG Velez on 79-10-4754Owkwghn Refractometry automated (U)TurbidClearFEast Ohio Regional HospitalUrine glucose measurement by automated test strip (mass/volume)Ordered By: BONG Velez on 10-08-2023 Glucose Auto test strip (U) [Mass/Vol]250 mg/dLNormalFirelands Regional Medical CenterUrine hemoglobin detection by automated test stripOrdered By: BONG Velez on 12-33-3026Ujdyesrsnv Auto test strip Ql (U)NegativeNegative [facility] CenterUrine leukocyte esterase detection by automated test stripOrdered By: BONG Velez on 02-20-9168Ohnzwumcc esterase Auto test strip Ql (U)NegativeNegativeAshtabula County Medical CenterUrobilinogen Auto test strip (U) [Mass/Vol]Ordered By: BONG Velez on 10-08-2023 Urobilinogen (U) [Mass/Vol]Normal mg/dLNoMercy Health Lorain HospitalpH Auto test strip (U)Ordered By: BONG Velez on 68-52-9708mE (U)5.5 [pH] 5.0-9.0[facility] Medical CenterGlucose Glucometer (BldC) [Mass/Vol] Ordered By: Carri Manuel on 07-40-5046Npujsoi [Mass/Vol]196 mg/dLAshtabula County Medical CenterComment on above:Random Glucose Reference Range is dependent on time and content of last meal. Glucose of more than 200 mg/dL in a nonstressed, ambulatory subject supports the diagnosis of Diabetes Mellitus.HCG ( test) IA.rapid Ql (U)Ordered By: Mic Álvarez on 52-52-4918JGH ( test) Ql (U)NegativeAshtabula County Medical CenterNo Panel InformationOrdered By: Carri Manuel on 41-59-9201Azugptx Glucose CommentGlu2: cleaned meterAshtabula County Medical CenterBasophils Auto (Bld) [#/Vol] Ordered By: Carri Manuel on 39-91-5482Zvbfuwwis (Bld) [#/Vol]0.1 10*3/uL0.0-0.2 [facility] CenterBasophils/100 WBC Auto (Bld)Ordered By: Carri Manuel on 15-67-1212Rrdtrehft/100 WBC (Bld)0.6 %.[facility] CenterCalcium [Mass/volume] in Serum or PlasmaOrdered By: Carri Manuel on 21-96-9925Ecblcui [Mass/Vol]9.3 mg/dL8.6-10.3FEast [facility] Hospital Carbon dioxide, total [Moles/volume] in Serum or PlasmaOrdered By: Carri Manuel on 53-84-0521SL2 [Moles/Vol]25.5 mmol/L21.0-31.0[facility] CenterChloride [Moles/volume] in Serum or PlasmaOrdered By: Carri Manuel on 42-60-7093Eedtnehn [Moles/Vol]99 mmol/M39-225ZatahifkvAshtabula County Medical Center Creatinine [Mass/volume] in Serum or PlasmaOrdered By: Carri Manuel on 58-09-9972Boonhosjvw [Mass/Vol]0.68 mg/dL0.60-1.20[facility] CenterEosinophils Auto (Bld) [#/Vol]Ordered By: Carri Manuel on 09-16-2023 Eosinophils (Bld) [#/Vol]0.1 10*3/uL0.0-0.45[facility] Eosinophils/100 WBC Auto (Bld)Ordered By: Carri Manuel on 09-16-2023 Eosinophils/100 WBC (Bld)0.5 %.[facility] Medical CenterErythrocyte distribution width Auto (RBC) [Ratio]Ordered By: Carri Manuel on 09-16-2023 Erythrocyte distribution width (RBC) [Ratio]13.3 %11.9-15.3FEast Ohio Regional HospitalGlucose [Mass/volume] in Serum or PlasmaOrdered By: Carri Manuel on 03-42-2759Dqfvzww [Mass/Vol]355 mg/hV72-954IbodmvmirAshtabula County Medical Center Comment on above:ADA recommended reference rangeRandom Glucose Reference Range is dependent on time and content of last meal. Glucose of more than 200 mg/dL in a nonstressed, ambulatory subject supports the diagnosisof Diabetes Mellitus. Hematocrit Auto (Bld) [Volume fraction]Ordered By: Carri Manuel on 09-16-2023 Hematocrit (Bld) [Volume fraction]38.3 %34.0-46.4FEast Ohio Regional HospitalHemoglobin [Mass/volume] in BloodOrdered By: Carri Manuel on 09-16-2023 Hemoglobin (Bld) [Mass/Vol]12.8 g/dL11.8-15.4FEast [facility] Hospital Leukocytes [#/volume] corrected for nucleated erythrocytes in Blood by Automated counOrdered By: Carri Manuel on 20-00-0798DTW corrected for nucl RBC Auto (Bld) [#/Vol]12.5 10*3/uL3.8-11.6FEast Ohio Regional HospitalLymphocytes Auto (Bld) [#/Vol]Ordered By: Carri Manuel on 82-86-4887Aeyclmyanwy (Bld) [#/Vol]3.1 10*3/uL1.00-4.8[facility] Medical CenterLymphocytes/100 WBC Auto (Bld)Ordered By: Carri Manuel on 20-31-4117Vdgciykloyz/100 WBC (Bld)24.9 % .[facility] Auto (RBC) [Entitic mass]Ordered By: Carri Manuel on 26-76-1159AKV (RBC) [Entitic mass]29.7 pg24.7-34.3FEast Ohio Regional HospitalMCHC Auto (RBC) [Mass/Vol]Ordered By: Carri Manuel on 14-90-9525ADTL (RBC) [Mass/Vol]33.5 g/dL32.0-35.0[facility] Medical CenterMCV Auto (RBC) [Entitic vol]Ordered By: Carri Manuel on 87-49-3810PFK (RBC) [Entitic vol]88.8 cO17-124VjvgfvgpgAshtabula County Medical CenterMonocytes Auto (Bld) [#/Vol]Ordered By: Carri Manuel on 63-36-5057Uwaxblzjs (Bld) [#/Vol]0.9 10*3/uL0.0-0.8[facility] CenterMonocytes/100 WBC Auto (Bld) Ordered By: Carri Manuel on 28-75-4233Icpfmepno/100 WBC (Bld)7.5 %.[facility] Medical CenterNeutrophils Auto (Bld) [#/Vol]Ordered By: Carri Manuel on 86-47-1964Ypueaxijjhw (Bld) [#/Vol]8.3 10*3/uL1.8-7.7FEast Ohio Regional HospitalNeutrophils/100 WBC Auto (Bld)Ordered By: Carri Manuel on 26-86-4668Qhoqoysstiy/100 WBC (Bld)66.5 %.[facility] CenterNo Panel InformationOrdered By: Carri Manuel on 34-28-7180Zovhnjdtr GFR (CKD-EPI)> 60.0 mL/MinAshtabula County Medical CenterPharmacy Creatinine Clearance (Chem N/AFEast Ohio Regional HospitalNucleated erythrocytes [Presence] in Blood by Automated countOrdered By: Carri Manuel on 23-38-9981Cntfogpch RBC Auto Ql (Bld)0.1 /100{WBC}0-0.5FEast Ohio Regional HospitalPlatelet mean volume Auto (Bld) [Entitic vol]Ordered By: Carri Manuel on 76-87-8012Vgisgana mean volume (Bld) [Entitic vol]8.2 fL6.3-10.7FEast [facility] Regional Hospital Platelets Auto (Bld) [#/Vol]Ordered By: Carri Manuel on 09-80-6407Kcwaijzym (Bld) [#/Vol]305 10*3/fU105-414BamzzjsnxAshtabula County Medical CenterPotassium [Moles/volume] in Serum or PlasmaOrdered By: Carri Manuel on 09-16-2023 Potassium [Moles/Vol]5.0 mmol/L3.5-5.1FEast Ohio Regional HospitalRBC Auto (Bld) [#/Vol]Ordered By: Carri Manuel on 55-87-2146YIF (Bld) [#/Vol]4.31 10*6/uL3.60-5.00[facility] Hospitalerum or plasma anion gap determinationOrdered By: Carri Manuel on 34-99-9698Kzitk gap [Moles/Vol]14.5 mmol/L6.0-15.0[facility] Hospitalodium [Moles/volume] in Serum or PlasmaOrdered By: Carri Manuel on 38-62-5640Eugnkf [Moles/Vol]134 mmol/L 136-145[facility] CenterUrea nitrogen [Mass/volume] in Serum or PlasmaOrdered By: Carri Manuel on 53-96-1552Dcgi nitrogen [Mass/Vol]13 mg/dL 7-25[facility] Medical CenterWBC Auto (Bld) [#/Vol]Ordered By: Carri Manuel on 21-54-9766UGI (Bld) [#/Vol]12.5 10*3/uL3.8-11.6FEast Ohio Regional HospitalGlucose Glucometer (BldC) [Mass/Vol]Ordered By: Carri Manuel on 92-94-4253Truwrpm [Mass/Vol]119 mg/dLAshtabula County Medical CenterComment on above:Random Glucose Reference Range is dependent on time and content of last meal. Glucose of more than 200 mg/dL in a nonstressed, ambulatory subject supports the diagnosis of Diabetes Mellitus.HCG ( test) IA.rapid Ql (U) Ordered By: Julio Monroe on 41-46-2237LYA ( test) Ql (U)NegativeAshtabula County Medical CenterNo Panel InformationOrdered By: Carri Manuel on 92-24-8328Xdixskx Glucose CommentGlu2: cleaned meterAshtabula County Medical CenterBasophils Auto (Bld) [#/Vol]Ordered By: Carri Manuel on 06-30-2023 Basophils (Bld) [#/Vol]0.1 10*3/uL0.0-0.2FEast [facility] Regional Hospital Basophils/100 WBC Auto (Bld)Ordered By: Carri Manuel on 93-15-1782Qhxbkfgxf/100 WBC (Bld)0.7 %.[facility] CenterCalcium [Mass/volume] in Serum or PlasmaOrdered By: Carri Manuel on 71-51-3201Secncqv [Mass/Vol]9.2 mg/dL 8.6-10.3FEast Ohio Regional HospitalCarbon dioxide, total [Moles/volume] in Serum or PlasmaOrdered By: Carri Manuel on 65-39-7695WN6 [Moles/Vol]26.7 mmol/L21.0-31.0[facility] CenterChloride [Moles/volume] in Serum or PlasmaOrdered By: Carri Manuel on 79-77-5167Ezcmuwad [Moles/Vol]100 mmol/L 98-107[facility] CenterCreatinine [Mass/volume] in Serum or PlasmaOrdered By: Carri Manuel on 86-72-8006Udpdyjgiza [Mass/Vol]0.54 mg/dL 0.60-1.20[facility] CenterEosinophils Auto (Bld) [#/Vol]Ordered By: Carri Manuel on 93-56-9200Fwstsecujxy (Bld) [#/Vol]0.1 10*3/uL0.0-0.45 [facility] CenterEosinophils/100 WBC Auto (Bld)Ordered By: Carri Manuel on 73-07-4258Izindqstpoe/100 WBC (Bld)0.4 %.[facility] CenterErythrocyte distribution width Auto (RBC) [Ratio]Ordered By: Carri Manuel on 44-11-0744Usoriayhgqx distribution width (RBC) [Ratio]13.3 % 11.9-15.3FEast Ohio Regional HospitalGlucose [Mass/volume] in Serum or PlasmaOrdered By: Carri Manuel on 17-86-3341Mlbkmjs [Mass/Vol]134 mg/qH40-380 [facility] CenterComment on above:ADA recommended reference rangeRandom Glucose Reference Range is dependent on time and content of last meal. Glucose of more than 200 mg/dL in a nonstressed, ambulatory subject supports the diagnosisof Diabetes Mellitus.Hematocrit Auto (Bld) [Volume fraction]Ordered By: Carri Manuel on 88-35-7380Ebczafjswo (Bld) [Volume fraction]38.9 %34.0-46.4FEast Ohio Regional HospitalHemoglobin [Mass/volume] in BloodOrdered By: Carri Manuel on 41-47-8113Zsqvjxknlq (Bld) [Mass/Vol]13.0 g/dL11.8-15.4FEast Ohio Regional HospitalLeukocytes [#/volume] corrected for nucleated erythrocytes in Blood by Automated coun Ordered By: Carri Manuel on 58-39-0363PCB corrected for nucl RBC Auto (Bld) [#/Vol]15.4 10*3/uL3.8-11.6FEast Ohio Regional HospitalLymphocytes Auto (Bld) [#/Vol]Ordered By: Carri Manuel on 26-94-6780Lfctrcqyhlj (Bld) [#/Vol]4.3 10*3/uL1.00-4.8[facility] CenterLymphocytes/100 WBC Auto (Bld) Ordered By: Carri Manuel on 52-28-1701Wcoaheeuumy/100 WBC (Bld)27.8 %.[facility] HamiltonH Auto (RBC) [Entitic mass]Ordered By: Carri Manuel on 85-53-9917CWU (RBC) [Entitic mass]30.0 pg24.7-34.3FEast Ohio Regional HospitalMCHC Auto (RBC) [Mass/Vol]Ordered By: Carri Manuel on 04-66-8851DGPC (RBC) [Mass/Vol]33.5 g/dL32.0-35.0[facility] CenterMCV Auto (RBC) [Entitic vol]Ordered By: Carri Manuel on 01-84-0421DAD (RBC) [Entitic vol]89.6 jR67-165EzmomnkwvAshtabula County Medical CenterMonocytes Auto (Bld) [#/Vol] Ordered By: Carri Manuel on 84-28-1322Zefwymzyl (Bld) [#/Vol]1.2 10*3/uL0.0-0.8 [facility] CenterMonocytes/100 WBC Auto (Bld)Ordered By: Carri Manuel on 29-45-5602Oasmhltxm/100 WBC (Bld)7.5 %.[facility] CenterNeutrophils Auto (Bld) [#/Vol]Ordered By: Carri Manuel on 06-30-2023 Neutrophils (Bld) [#/Vol]9.8 10*3/uL1.8-7.7FEast [facility] Hospital Neutrophils/100 WBC Auto (Bld)Ordered By: Carri Manuel on 06-30-2023 Neutrophils/100 WBC (Bld)63.6 %.[facility] CenterNo Panel InformationOrdered By: Carri Manuel on 77-29-6072Zoauccrog GFR (CKD-EPI)> 60.0 mL/MinAshtabula County Medical CenterPharmacy Creatinine Clearance (ChemN/A [facility] CenterNucleated erythrocytes [Presence] in Blood by Automated countOrdered By: Carri Manuel on 11-75-2931Oskmenvfl RBC Auto Ql (Bld)0.0 /100{WBC}0-0.5[facility] CenterPlatelet mean volume Auto (Bld) [Entitic vol]Ordered By: Carri Manuel on 53-96-1195Fuxgfdjr mean volume (Bld) [Entitic vol]7.9 fL6.3-10.7FEast [facility] Hospital Platelets Auto (Bld) [#/Vol]Ordered By: Carri Manuel on 20-01-1774Csecgnsaz (Bld) [#/Vol]275 10*3/eY505-005ZgtteejhnAshtabula County Medical CenterPotassium [Moles/volume] in Serum or PlasmaOrdered By: Carri Manuel on 06-30-2023 Potassium [Moles/Vol]4.3 mmol/L3.5-5.1FEast Ohio Regional HospitalRBC Auto (Bld) [#/Vol]Ordered By: Carri Manuel on 42-89-3886RMQ (Bld) [#/Vol]4.34 10*6/uL3.60-5.00[facility] Hospitalerum or plasma anion gap determinationOrdered By: Carri Manuel on 14-87-0386Mcgvm gap [Moles/Vol]14.6 mmol/L6.0-15.0[facility] Hospitalodium [Moles/volume] in Serum or PlasmaOrdered By: Carri Manuel on 69-96-2003Kkxzlt [Moles/Vol]137 mmol/L 136-145[facility] CenterUrea nitrogen [Mass/volume] in Serum or PlasmaOrdered By: Carri Manuel on 80-76-8928Sggr nitrogen [Mass/Vol]11 mg/dL 7-25[facility] CenterWBC Auto (Bld) [#/Vol]Ordered By: Carri Manuel on 28-43-1302HSH (Bld) [#/Vol]15.4 10*3/uL3.8-11.6FEast Ohio Regional HospitalHCG ( test) IA.rapid Ql (U)Ordered By: Kyler Miramontes on 51-09-9322PAF ( test) Ql (U)NegativeAshtabula County Medical Center Alanine aminotransferase [Enzymatic activity/volume] in Serum or PlasmaOrdered By: Ajit Pettit on 09-77-7692DPG [Catalytic activity/Vol]17 U/L7-52[facility] CenterAlbumin [Mass/volume] in Serum or Plasma by Bromocresol green (BCG) dye binding methoOrdered By: Ajit Pettit on 80-98-1407Qxjaabe BCG dye [Mass/Vol]4.4 g/dL3.5-5.7FEast Ohio Regional HospitalAlkaline phosphatase [Enzymatic activity/volume] in Serum or PlasmaOrdered By: Ajit Pettit on 21-71-9803WUW [Catalytic activity/Vol]55 U/A25-579HhruopbxhAshtabula County Medical CenterAspartate aminotransferase [Enzymatic activity/volume] in Serum or PlasmaOrdered By: Ajit Pettit on 54-41-0526QLH [Catalytic activity/Vol]18 U/L 13-39[facility] CenterBasophils Auto (Bld) [#/Vol]Ordered By: Ajit Pettit on 54-50-3331Crigcrsbw (Bld) [#/Vol]0.1 10*3/uL0.0-0.2FEast Ohio Regional HospitalBasophils/100 WBC Auto (Bld)Ordered By: Ajit Pettit on 67-35-3205Osxmxqoik/100 WBC (Bld)0.9 %.[facility] Bilirubin.total [Mass/volume] in Serum or PlasmaOrdered By: Ajit Pettit on 71-15-2451Oteozzadc [Mass/Vol]0.3 mg/dL0.3-1.0[facility] Calcium [Mass/volume] in Serum or PlasmaOrdered By: Ajit Pettit on 05-04-2023 Calcium [Mass/Vol]9.6 mg/dL8.6-10.3FEast [facility] Regional HospitalCarbon dioxide, total [Moles/volume] in Serum or PlasmaOrdered By: Ajit Pettit on 27-79-9770ZF6 [Moles/Vol]28.5 mmol/L21.0-31.0[facility] Chloride [Moles/volume] in Serum or PlasmaOrdered By: Ajit Pettit on 05-04-2023 Chloride [Moles/Vol]100 mmol/Z19-823TqdphldwfAshtabula County Medical CenterCholesterol [Mass/volume] in Serum or PlasmaOrdered By: Ajit Pettit on 05-04-2023 Cholesterol [Mass/Vol]180 mg/vQ863-120MsxinvtlgAshtabula County Medical CenterComment on above:Chol less than 200 mg/dl low riskChol 201-239 mg/dl borderline riskChol 240 mg/dl and greater high riskCholesterol in LDL Calc [Mass/Vol]Ordered By: Ajit Pettit on 96-92-8231Rpmffibykry in LDL [Mass/Vol]81 mg/dL0-100[facility] CenterComment on above:LDL ATP III CLASSIFICATIONLDL less than 100 mg/dL OptimalLDL 100-129 mg/dL Near or above shoyiblJBG422-477 mg/dL Borderline highLDL 160-189 mg/dL HighLDL greater than 189 mg/dL Very high Cholesterol in VLDL Calc [Mass/Vol]Ordered By: Ajit Pettit on 05-04-2023 Cholesterol in VLDL [Mass/Vol]46 mg/dLAshtabula County Medical Center Creatinine [Mass/volume] in Serum or PlasmaOrdered By: Ajit Pettit on 72-95-1106Ybityquclx [Mass/Vol]0.65 mg/dL0.60-1.20[facility] CenterEosinophils Auto (Bld) [#/Vol]Ordered By: Ajit Pettit on 05-04-2023 Eosinophils (Bld) [#/Vol]0.1 10*3/uL0.0-0.45[facility] Eosinophils/100 WBC Auto (Bld)Ordered By: Ajit Pettit on 05-04-2023 Eosinophils/100 WBC (Bld)0.5 %.[facility] CenterErythrocyte distribution width Auto (RBC) [Ratio]Ordered By: Ajit Pettit on 05-04-2023 Erythrocyte distribution width (RBC) [Ratio]13.4 %11.9-15.3FEast Ohio Regional HospitalFerritin [Mass/volume] in Serum or PlasmaOrdered By: Ajit Pettit on 27-09-2141Btehzjqv [Mass/Vol]90.4 ng/mL11.0-306.8[facility] CenterGlobulin Calc (S) [Mass/Vol]Ordered By: Ajit Pettit on 12-24-5919Yproesfv (S) [Mass/Vol]2.3 g/dLAshtabula County Medical CenterGlucose [Mass/volume] in Serum or PlasmaOrdered By: Ajit Pettit on 86-26-6294Gdtappz [Mass/Vol]124 mg/nP70-142CpqjqrkjvAshtabula County Medical CenterComment on above:ADA recommended reference rangeRandom Glucose Reference Range is dependent on time and content of last meal. Glucose of more than 200 mg/dL in a nonstressed, ambulatory subject supports the diagnosisof Diabetes Mellitus.Hematocrit Auto (Bld) [Volume fraction]Ordered By: Ajit Pettit on 10-35-7299Kpqtupphmc (Bld) [Volume fraction]41.7 %34.0-46.4FEast Ohio Regional HospitalHemoglobin [Mass/volume] in BloodOrdered By: Ajit Pettit on 18-97-0327Wgefdtddbv (Bld) [Mass/Vol]14.0 g/dL11.8-15.4FEast Ohio Regional HospitalIron [Mass/volume] in Serum or PlasmaOrdered By: Ajit Pettit on 46-15-3883Uyrp [Mass/Vol]95 ug/dL 50-212[facility] CenterIron binding capacity [Mass/volume] in Serum or PlasmaOrdered By: Ajit Pettit on 80-66-4943Inoh binding capacity [Mass/Vol]476 ug/oT613-524VahgvjxbiAshtabula County Medical CenterIron saturation [Mass Fraction] in Serum or PlasmaOrdered By: Ajit Pettit on 28-62-3483Wiud saturation [Mass fraction]20.0 %20-50[facility] CenterLeukocytes [#/volume] corrected for nucleated erythrocytes in Blood by Automated coun Ordered By: Ajit Pettit on 11-86-6193JAK corrected for nucl RBC Auto (Bld) [#/Vol]14.4 10*3/uL3.8-11.6FEast Ohio Regional HospitalLymphocytes Auto (Bld) [#/Vol]Ordered By: Ajit Pettit on 67-69-3046Wwuzkqgebqw (Bld) [#/Vol]3.2 10*3/uL1.00-4.8[facility] CenterLymphocytes/100 WBC Auto (Bld) Ordered By: Ajit Pettit on 42-77-2329Stvaxtypssw/100 WBC (Bld)22.3 %.[facility] CenterMCH Auto (RBC) [Entitic mass]Ordered By: Ajit Pettit on 88-37-3419RVT (RBC) [Entitic mass]29.8 pg24.7-34.3FEast Ohio Regional HospitalMCHC Auto (RBC) [Mass/Vol]Ordered By: Ajit Pettit on 60-64-5864LMYP (RBC) [Mass/Vol]33.5 g/dL32.0-35.0[facility] CenterMCV Auto (RBC) [Entitic vol]Ordered By: Ajit Pettit on 06-04-3747EFF (RBC) [Entitic vol]89.1 oF30-638OuuxsvtxaAshtabula County Medical CenterMonocytes Auto (Bld) [#/Vol]Ordered By: Ajit Pettit on 45-28-6969Jbezgmtmy (Bld) [#/Vol]0.9 10*3/uL0.0-0.8[facility] CenterMonocytes/100 WBC Auto (Bld)Ordered By: Ajit Pettit on 57-59-6167Dbgllixvo/100 WBC (Bld)6.3 %.[facility] Neutrophils Auto (Bld) [#/Vol]Ordered By: Ajit Pettit on 97-31-6472Cfhdeaeeozd (Bld) [#/Vol]10.1 10*3/uL1.8-7.7FEast Ohio Regional HospitalNeutrophils/100 WBC Auto (Bld)Ordered By: Ajit Pettit on 92-68-6501Uzafsmieifg/100 WBC (Bld) 70.0 %.[facility] CenterNo Panel InformationOrdered By: Ajit Pettit on 26-78-6313Awzgrvwfs GFR (CKD-EPI)> 60.0 mL/MinAshtabula County Medical CenterPharmacy Creatinine Clearance (ChemN/[facility] HospitalNucleated erythrocytes [Presence] in Blood by Automated countOrdered By: Ajit Pettit on 61-95-2953Ichoxpfir RBC Auto Ql (Bld)0.1 /100{WBC}0-0.5FEast Ohio Regional HospitalPlatelet mean volume Auto (Bld) [Entitic vol]Ordered By: Ajit Pettit on 44-58-3230Kejtbzol mean volume (Bld) [Entitic vol]8.4 fL6.3-10.7 [facility] CenterPlatelets Auto (Bld) [#/Vol]Ordered By: Ajit Pettit on 48-56-7032Huowtqznu (Bld) [#/Vol]328 10*3/xX462-310AjfpjlqjdAshtabula County Medical CenterPotassium [Moles/volume] in Serum or PlasmaOrdered By: Ajit Pettit on 62-39-9920Llebixqmf [Moles/Vol]5.3 mmol/L3.5-5.1FEast Ohio Regional HospitalProtein [Mass/volume] in Serum or PlasmaOrdered By: Ajit Pettit on 66-33-7207Unkeeag [Mass/Vol]6.7 g/dL6.4-8.9[facility] RBC Auto (Bld) [#/Vol]Ordered By: Ajit Pettit on 91-98-7072AKO (Bld) [#/Vol] 4.68 10*6/uL3.60-5.00[facility] Hospitalerum or plasma albumin/globulin mass ratioOrdered By: Ajit Pettit on 05-04-2023 Albumin/Globulin [Mass ratio]1.9 {ratio}[facility] Hospitalerum or plasma anion gap determinationOrdered By: Ajit Pettit on 72-77-3299Qeayk gap [Moles/Vol]11.8 mmol/L6.0-15.0[facility] Hospitalerum or plasma high density lipoprotein (HDL) cholesterol measurementOrdered By: Ajit Pettit on 55-05-9984Dzxspehrgsv in HDL [Mass/Vol]52 mg/yB38-29GdaocxwzrAshtabula County Medical CenterComment on above:HDL CHOL ATP-III CLASSIFICATION Cardiovascular RiskHDL > or equal to 60 mg/dL LOWHDL < 40 mg/dL HIGHSerum or plasma total cholesterol/high density lipoprotein (HDL) cholesterol mass ratOrdered By: Ajit Pettit on 91-84-8800Esnjwmxybyi.total/Cholesterol in HDL [Mass ratio]3.5 {ratio}<5.0[facility] Hospitalodium [Moles/volume] in Serum or PlasmaOrdered By: Ajit Pettit on 11-34-1019Zmkuca [Moles/Vol]135 mmol/H899-961 [facility] CenterThyrotropin [Units/volume] in Serum or Plasma Ordered By: jAit Pettit on 39-42-5991VVJ Qn1.97 m[IU]/L0.45-5.33[facility] CenterTransferrin [Mass/volume] in Serum or PlasmaOrdered By: Ajit Pettit on 78-56-6577Pmsckoiafye [Mass/Vol]340 mg/hY706-555FyhiyrekhAshtabula County Medical CenterTriglyceride [Mass/volume] in Serum or PlasmaOrdered By: Ajit Pettit on 14-28-7450Tehndwopfbhi [Mass/Vol]233 mg/dL0-149[facility] CenterComment on above:TRIG ATP III CLASSIFICATIONTRIG less than 150 mg/dL NormalTRIG 150-199 mg/dL Borderline highTRIG 200-500 mg/dL High TRIG greater than 500 mg/dL Very highStandard traceable to the Center for Disease Conrtrol and Prevention (CDC) test method.Urea nitrogen [Mass/volume] in Serum or PlasmaOrdered By: Ajit Pettit on 72-99-4486Vybv nitrogen [Mass/Vol]9 mg/dL7-25As[facility] Medical CenterUrine culture routineOrdered By: Ajit Pettit on 95-97-4278Bexkmfml identified Cx Nom (U)Strep. agalactiae Grp B [facility] CenterWBC Auto (Bld) [#/Vol]Ordered By: Ajit Pettit on 13-31-7886ZJQ (Bld) [#/Vol]14.4 10*3/uL3.8-11.6FEast Ohio Regional HospitalHCG ( test) IA.rapid Ql (U)Ordered By: Kyler Miramontes on 04-14-2023 HCG ( test) Ql (U)NegativeAshtabula County Medical CenterCBC AUTO DIFFon [id number] #0.1 103/ulNormal0.0-0.1The [facility] County HospitalComment on above:Performed By: #### CBC #### [facility] [address] [place] [address] Dr. Vito GrimmBasophils/100 WBC (Bld)0.5 %Normal0.2-2.0[facility] Comment on above:Performed By: #### CBC #### [facility] [address] [place] [address] Dr. Vito Freeman #0.1 103/ulNormal0.0-0.7The [facility] HospitalComment on above: Performed By: #### CBC #### [facility] [address] [place] [address] Dr. Vito Isaacosinophils/100 WBC (Bld)0.8 %Critically low0.9-7.0The [facility] HospitalComment on above:Performed By: #### CBC #### [facility] [address] [place] [address] Dr. Vito Isaacrythrocyte distribution width (RBC) [Ratio]13.1 %Rpuikp40.0-15.0 [facility] HospitalComment on above:Performed By: #### CBC #### [facility] [address] [place] [address] Dr. Vito GrimmHematocrit (Bld) [Volume fraction]41.2 %Soxpzo35.0-48.0[facility] HospitalComment on above:Performed By: #### CBC #### [facility] [address] [place] [address] Dr. Vito GrimmHemoglobin (Bld) [Mass/Vol]13.4 g/bJJrssme50.0-16.0The [facility] County HospitalComment on above:Performed By: #### CBC #### [facility] [address] [place] [address] Dr. Vito Ledbetter #0.05 10e3/ulCritically high0.00-0.03[facility] Comment on above:Performed By: #### CBC #### [facility] [address] [place] [address] Dr. Vito Ledbetter %0.4 %Normal0.0-0.5The [facility] County HospitalComment on above: Performed By: #### CBC #### [facility] [address] [place] [address] Dr. Vito Phan #4.8 103/ulCritically high1.2-3.8The [facility] Comment on above:Performed By: #### CBC #### [facility] [address] [place] [address] Dr. Vito Schneiderhocytes/100 WBC (Bld)38.8 %Ambven99.5-60.0The [facility] County HospitalComment on above:Performed By: #### CBC #### [facility] [address] [place] [address] Dr. Vito Ghosh DIFF REQNONormalThe [facility] County HospitalComment on above: Performed By: #### CBC #### [facility] [address] [place] [address] Dr. Vito Escobar (RBC) [Entitic mass]29.9 qnBicoqe64.7-34.0The [facility] HospitalComment on above:Performed By: #### CBC #### [facility] [address] [place] [address] Dr. Vito Faith (RBC) [Mass/Vol]32.5 g/cHXaagnn24.9-35.2The [facility] HospitalComment on above:Performed By: #### CBC #### [facility] [address] [place] [address] Dr. Vito Faith (RBC) [Entitic vol]92.0 sTRusrxu22.0-99.0The [facility] HospitalComment on above:Performed By: #### CBC #### [facility] [address] [place] [address] Dr. Vito Ferrera #0.9 103/ulCritically high0.3-0.8The [facility] Comment on above:Performed By: #### CBC #### [facility] [address] [place] [address] Dr. Vito Whitesideocytes/100 WBC (Bld)7.4 %Normal1.7-12.0[facility] Comment on above:Performed By: #### CBC #### [facility] [address] [place] [address] Dr. Vito WhiteheadUT #6.5 103/ulNormal1.4-6.5The [facility] HospitalComment on above:Performed By: #### CBC #### [facility] [address] [place] [address] Dr. Vito Whiteheadutrophils/100 WBC (Bld)52.1 %Fmvycg34.0-75.0The [facility] HospitalComment on above:Performed By: #### CBC #### [facility] [address] [place] [address] Dr. Vito GrimmPlatelet mean volume (Bld) [Entitic vol]10.0 fLNormal9.5-13.5The [facility] HospitalComment on above:Performed By: #### CBC #### [facility] [address] [place] [address] Dr. Vito GrimmPLT298 103/sqXnuiri889-130Ixh [facility] HospitalComment on above: Performed By: #### CBC #### [facility] [address] [place] [address] Dr. Vito GrimmRBC4.48 106/ulNormal4.20-5.40The [facility] HospitalComment on above:Performed By: #### CBC #### [facility] [address] [place] [address] Dr. Vito GrimmWBC12.4 103/ulCritically high4.0-11.0The [facility] HospitalComment on above:Performed By: #### CBC #### [facility] [address] [place] [address] Dr. Vito PenningtonKENE/ VALPROIC ACIDon 37-30-3178QOTPBXOX70.4 ug/mlCritically low50.0-100.0The [facility] HospitalComment on above:Performed By: #### CMP, HSTROPN #### [facility] [address] [address] [address] Vito GrimmLACTATE/LACTIC ACIDon 92-62-6414Andwzqq [Moles/Vol]2.7 mmol/L Critically high0.4-2.0The [facility] HospitalComment on above:Performed By: #### LACT #### [facility] [address] [address] [address] Vito GrimmPROF CHEM 8 (BAS METB)on 48-66-0575Ommlz gap [Moles/Vol]17.6 mmol/LNormalThe [facility] County HospitalComment on above:Performed By: #### BMP #### [facility] [address] [address] [address] Vito GrimmCalcium [Mass/Vol]8.7 mg/dLNormal8.5-10.1The [facility] Comment on above:Performed By: #### BMP #### [facility] [address] [address] [address] Vito GrimmChloride [Moles/Vol]99 mmol/WJtzemc25-054Rlm [facility] Comment on above:Performed By: #### BMP #### [facility] [address] [address] [address] Vito GrimmCO2 [Moles/Vol]23.5 mmol/AFrkhul09.0-32.0[facility] Comment on above:Performed By: #### BMP #### [facility] [address] [address] [address] Vito GrimmCreatinine [Mass/Vol]0.75 mg/dLNormal0.55-1.02The [facility] HospitalComment on above:Performed By: #### BMP #### [facility] [address] [place] [address] Dr. Vito IsaacGFR-AF WALLISIAN>60Normal>=60The [facility] HospitalComment on above:Performed By: #### BMP #### [facility] [address] [address] [address] Vito IsaacGFR-NON AF WALLISIAN>60Normal>=60The [facility] HospitalComment on above:Performed By: #### BMP #### [facility] [address] [address] [address] Vito GrimmGlucose [Mass/Vol]273 mg/dLCritically dfqq30-813Pvq [facility] HospitalComment on above:Performed By: #### BMP #### [facility] [address] [address] [address] Vito GrimmPotassium [Moles/Vol]4.1 mmol/LNormal3.5-5.1[facility] Comment on above:Performed By: #### BMP #### [facility] [address] [address] [address] Vito GrimmSodium [Moles/Vol]136 mmol/IQyvzbt526-137Hxq [facility] Comment on above:Performed By: #### BMP #### [facility] [address] [address] [address] Vito GrimmUrea nitrogen [Mass/Vol]6.0 mg/dLCritically low7.0-18.0The [facility] HospitalComment on above:Performed By: #### BMP #### [facility] [address] [address] [address] Vito Steinberg nitrogen/Creatinine [Mass ratio]8.0 mg/mgNormalThe [facility] HospitalComment on above:Performed By: #### BMP #### [facility] [address] [address] [address] Vito GrimmAlanine aminotransferase [Enzymatic activity/volume] in Serum or PlasmaOrdered By: Ajit Pettit on 74-07-4262XAL [Catalytic activity/Vol]29 U/L 7-52[facility] CenterAlbumin [Mass/volume] in Serum or Plasma by Bromocresol green (BCG) dye binding methoOrdered By: Ajit Pettit on 02-09-2023 Albumin BCG dye [Mass/Vol]4.4 g/dL3.5-5.7FEast [facility] Alkaline phosphatase [Enzymatic activity/volume] in Serum or PlasmaOrdered By: Ajit Pettit on 18-58-4874MPQ [Catalytic activity/Vol]72 U/C72-314IdiwqvxkkAshtabula County Medical CenterAspartate aminotransferase [Enzymatic activity/volume] in Serum or PlasmaOrdered By: Ajit Pettit on 86-75-5746DOM [Catalytic activity/Vol]27 U/F42-01UhbtgaxkvAshtabula County Medical CenterBasophils Auto (Bld) [#/Vol]Ordered By: Ajit Millanc on 79-21-2281Ykkalxahs (Bld) [#/Vol]0.1 10*3/uL 0.0-0.2FEast Ohio Regional HospitalBasophils/100 WBC Auto (Bld)Ordered By: Ajit Millanc on 48-53-4270Lectigosn/100 WBC (Bld)0.6 %.[facility] CenterBilirubin.total [Mass/volume] in Serum or PlasmaOrdered By: Ajit Pettit on 59-61-4467Hxawmmcqo [Mass/Vol]0.3 mg/dL0.3-1.0[facility] CenterCalcium [Mass/volume] in Serum or PlasmaOrdered By: Ajit Pettit on 27-46-3983Hjrhxhx [Mass/Vol]9.3 mg/dL8.6-10.3FEast Ohio Regional HospitalCarbon dioxide, total [Moles/volume] in Serum or PlasmaOrdered By: Ajit Pettit on 26-07-8924MG4 [Moles/Vol]23.8 mmol/L21.0-31.0[facility] CenterChloride [Moles/volume] in Serum or PlasmaOrdered By: Ajit Pettit on 38-09-3941Olyzpcvy [Moles/Vol]101 mmol/H84-881CpzzdkpzyAshtabula County Medical CenterCholesterol [Mass/volume] in Serum or PlasmaOrdered By: Ajit Pettit on 23-09-7845Lqwxoeognpe [Mass/Vol]166 mg/gX465-068AkjxsbyxkAshtabula County Medical CenterComment on above:Chol less than 200 mg/dl low riskChol 201-239 mg/dl borderline riskChol 240 mg/dl and greater high riskCholesterol in LDL Calc [Mass/Vol]Ordered By: Ajit Pettit on 83-39-0413Fbautbcbosl in LDL [Mass/Vol]TNP [facility] CenterComment on above:Test not performedCholesterol in LDL [Mass/volume] in Serum or PlasmaOrdered By: Ajit Pettit on 02-09-2023 Cholesterol in LDL [Mass/Vol]61 mg/dL0-100[facility] Comment on above:LDL ATP III CLASSIFICATIONLDL less than 100 mg/dL OptimalLDL 100-129 mg/dL Near or above srnjcejTGM753-720 mg/dL Borderline highLDL 160-189 mg/dL HighLDL greater than 189 mg/dL Very highCholesterol in VLDL Calc [Mass/Vol]Ordered By: Ajit Pettit on 72-21-6222Nfassuweqqn in VLDL [Mass/Vol]97 mg/dLAshtabula County Medical CenterCreatinine [Mass/volume] in Serum or PlasmaOrdered By: Ajit Pettit on 94-77-0208Ggudzcbpdr [Mass/Vol]0.75 mg/dL 0.60-1.20[facility] CenterEosinophils Auto (Bld) [#/Vol]Ordered By: Ajit Pettit on 77-88-7957Hsaknqcyafy (Bld) [#/Vol]0.1 10*3/uL0.0-0.45 [facility] CenterEosinophils/100 WBC Auto (Bld)Ordered By: Ajit Pettit on 07-08-0992Nmftgphwjln/100 WBC (Bld)0.7 %.[facility] CenterErythrocyte distribution width Auto (RBC) [Ratio]Ordered By: Ajit Pettit on 49-72-6400Vspedjljscn distribution width (RBC) [Ratio]13.1 %11.9-15.3 [facility] CenterGlobulin Calc (S) [Mass/Vol]Ordered By: Ajit Pettit on 74-61-0522Uhbuollc (S) [Mass/Vol]2.3 g/dLAshtabula County Medical CenterGlucose [Mass/volume] in Serum or PlasmaOrdered By: Ajit Pettit on 74-58-3303Tynvmcy [Mass/Vol]286 mg/tJ08-232BhnifzianAshtabula County Medical Center Comment on above:ADA recommended reference rangeRandom Glucose Reference Range is dependent on time and content of last meal. Glucose of more than 200 mg/dL in a nonstressed, ambulatory subject supports the diagnosisof Diabetes Mellitus. Hematocrit Auto (Bld) [Volume fraction]Ordered By: Ajit Pettit on 02-09-2023 Hematocrit (Bld) [Volume fraction]39.7 %34.0-46.4FEast Ohio Regional HospitalHemoglobin [Mass/volume] in BloodOrdered By: Ajit Pettit on 02-09-2023 Hemoglobin (Bld) [Mass/Vol]13.1 g/dL11.8-15.4FEast [facility] Leukocytes [#/volume] corrected for nucleated erythrocytes in Blood by Automated counOrdered By: Ajit Pettit on 62-63-7181OZP corrected for nucl RBC Auto (Bld) [#/Vol]13.2 10*3/uL3.8-11.6FEast Ohio Regional HospitalLymphocytes Auto (Bld) [#/Vol]Ordered By: Ajit Pettit on 93-37-2253Xigpjgjvhyu (Bld) [#/Vol]3.6 10*3/uL1.00-4.8[facility] CenterLymphocytes/100 WBC Auto (Bld) Ordered By: Ajit Pettit on 45-87-4922Dcxtnkllvwy/100 WBC (Bld)27.3 %.[facility] Auto (RBC) [Entitic mass]Ordered By: Ajit Pettit on 55-92-4258XWW (RBC) [Entitic mass]29.5 pg24.7-34.3FMercy Health West HospitalHC Auto (RBC) [Mass/Vol]Ordered By: Ajit Pettit on 80-06-7015RRXK (RBC) [Mass/Vol]33.1 g/dL32.0-35.0[facility] CenterMCV Auto (RBC) [Entitic vol]Ordered By: Ajit Pettit on 81-40-4584SST (RBC) [Entitic vol]89.3 pG72-412XgccaftioAshtabula County Medical CenterMonocytes Auto (Bld) [#/Vol]Ordered By: Ajit Pettit on 36-68-5058Jyptsieqj (Bld) [#/Vol]0.9 10*3/uL0.0-0.8[facility] CenterMonocytes/100 WBC Auto (Bld)Ordered By: Ajit Pettit on 15-57-6402Bgyovsgma/100 WBC (Bld)7.0 %.[facility] Neutrophils Auto (Bld) [#/Vol]Ordered By: Ajit Pettit on 85-54-5104Jdluckiutpr (Bld) [#/Vol]8.5 10*3/uL1.8-7.7FEast Ohio Regional HospitalNeutrophils/100 WBC Auto (Bld)Ordered By: Ajit Pettit on 97-70-2597Fxtjlqepjjo/100 WBC (Bld) 64.4 %.[facility] CenterNo Panel InformationOrdered By: Ajit Pettit on 99-43-5500Zbkqvcuyh GFR (CKD-EPI)> 60.0 mL/MinAshtabula County Medical CenterPharmacy Creatinine Clearance (ChemN/AFEast Ohio Regional HospitalNucleated erythrocytes [Presence] in Blood by Automated countOrdered By: Ajit Pettit on 39-82-9132Wfbpvstco RBC Auto Ql (Bld)0.0 /100{WBC}0-0.5FEast Ohio Regional HospitalPlatelet mean volume Auto (Bld) [Entitic vol]Ordered By: Ajit Pettit on 40-01-4459Iwhkoeun mean volume (Bld) [Entitic vol]8.8 fL6.3-10.7 [facility] CenterPlatelets Auto (Bld) [#/Vol]Ordered By: Ajit Pettit on 53-43-0618Tkgjifnmu (Bld) [#/Vol]295 10*3/oP605-182JretqucpiAshtabula County Medical CenterPotassium [Moles/volume] in Serum or PlasmaOrdered By: Ajit Pettit on 23-85-7264Wmzgonhqt [Moles/Vol]4.5 mmol/L3.5-5.1FEast Ohio Regional HospitalProtein [Mass/volume] in Serum or PlasmaOrdered By: Ajit Pettit on 12-24-0299Iwcbhwt [Mass/Vol]6.7 g/dL6.4-8.9[facility] RBC Auto (Bld) [#/Vol]Ordered By: Ajit Pettit on 88-31-9406ZVW (Bld) [#/Vol] 4.44 10*6/uL3.60-5.00[facility] Hospitalerum or plasma albumin/globulin mass ratioOrdered By: Ajit Pettit on 02-09-2023 Albumin/Globulin [Mass ratio]1.9 {ratio}[facility] Hospitalerum or plasma anion gap determinationOrdered By: Ajit Pettit on 77-34-0836Xrive gap [Moles/Vol]15.7 mmol/L6.0-15.0[facility] Hospitalerum or plasma high density lipoprotein (HDL) cholesterol measurementOrdered By: Ajit Pettit on 00-19-1612Jyhfogrpbso in HDL [Mass/Vol]41 mg/wD38-39CnhjtexahAshtabula County Medical CenterComment on above:HDL CHOL ATP-III CLASSIFICATION Cardiovascular RiskHDL > or equal to 60 mg/dL LOWHDL < 40 mg/dL HIGHSerum or plasma total cholesterol/high density lipoprotein (HDL) cholesterol mass ratOrdered By: Ajit Pettit on 73-80-1596Coetcatefts.total/Cholesterol in HDL [Mass ratio]4.0 {ratio}<5.0[facility] Hospitalodium [Moles/volume] in Serum or PlasmaOrdered By: Ajit Pettit on 24-15-4633Cwghey [Moles/Vol]136 mmol/I513-870 [facility] CenterThyrotropin [Units/volume] in Serum or Plasma Ordered By: Ajit Pettit on 20-36-8362RDR Qn2.98 m[IU]/L0.45-5.33[facility] CenterTriglyceride [Mass/volume] in Serum or PlasmaOrdered By: Ajit Millan on 52-00-4907Wdxigyiojcsn [Mass/Vol]485 mg/dL0-149[facility] Medical CenterComment on above:If the triglyceride result is greater than 400, LDLC and related calculations cannot be calculated and resulted.TRIG ATP III CLASSIFICATIONTRIG less than 150 mg/dL NormalTRIG 150-199 mg/dL BorderlinehighTRIG 200-500 mg/dL High TRIG greater than 500 mg/dL Very highStandard traceable to the Center for Disease Conrtrol and Prevention (CDC) test method.Urea nitrogen [Mass/volume] in Serum or PlasmaOrdered By: Ajit Pettit on 23-33-8134Yhsy nitrogen [Mass/Vol]10 mg/dL7-25[facility] Medical CenterUrine culture routineOrdered By: Ajit Pettit on 02-09-2023 Bacteria identified Cx Nom (U)2 DaysAshtabula County Medical CenterWBC Auto (Bld) [#/Vol]Ordered By: Ajit Millan on 86-28-8200ESF (Bld) [#/Vol]13.2 10*3/uL 3.8-11.6FEast Ohio Regional HospitalACETONE SERUMon 10-86-3947LGBPYRK NegativeNormalNEGATIVEThe [facility] HospitalComment on above:Performed By: #### ACETON #### [facility] [address] [place] [address] Dr. Vito Rudolph AUTO DIFFon 94-48-7416IZYE #0.1 103/ulNormal0.0-0.1The [facility] HospitalComment on above:Performed By: #### CBC #### [facility] [address] [place] [address] Dr. Vito iMnorsophils/100 WBC (Bld)0.5 %Normal0.2-2.0The [facility] Comment on above:Performed By: #### CBC #### [facility] [address] [place] [address] Dr. Vito Freeman #0.1 103/ulNormal0.0-0.7The [facility] HospitalComment on above: Performed By: #### CBC #### [facility] [address] [place] [address] Dr. Vito Isaacosinophils/100 WBC (Bld)0.7 %Critically low0.9-7.0The [facility] HospitalComment on above:Performed By: #### CBC #### [facility] [address] [place] [address] Dr. Yilan ChangErythrocyte distribution width (RBC) [Ratio]12.9 %Oadszv76.0-15.0 [facility] HospitalComment on above:Performed By: #### CBC #### [facility] [address] [place] [address] Dr. Vito GrimmHematocrit (Bld) [Volume fraction]39.0 %Vtjhvt91.0-48.0The [facility] HospitalComment on above:Performed By: #### CBC #### [facility] [address] [place] [address] Dr. Vito GrimmHemoglobin (Bld) [Mass/Vol]13.1 g/jVUbojpm76.0-16.0The [facility] HospitalComment on above:Performed By: #### CBC #### [facility] [address] [place] [address] Dr. Vito Ledbetter #0.11 10e3/ulCritically high0.00-0.03[facility] Comment on above:Performed By: #### CBC #### [facility] [address] [place] [address] Dr. Vito Ledbetter %0.8 %Critically high0.0-0.5ThKeenan Private HospitalComment on above:Performed By: #### CBC #### [facility] [address] [place] [address] Dr. Vito SchneiderH #4.6 103/ulCritically high1.2-3.8The [facility] Comment on above:Performed By: #### CBC #### [facility] [address] [place] [address] Dr. Vito Mccormackmphocytes/100 WBC (Bld)34.4 %Jqrygp43.5-60.0The [facility] HospitalComment on above:Performed By: #### CBC #### [facility] [address] [place] [address] Dr. Vito KasperUAL DIFF REQNONormalThe [facility] HospitalComment on above: Performed By: #### CBC #### [facility] [address] [place] [address] Dr. Vito Faith (RBC) [Entitic mass]29.9 zcIhlirw96.7-34.0The [facility] HospitalComment on above:Performed By: #### CBC #### [facility] [address] [place] [address] Dr. Vito Faith (RBC) [Mass/Vol]33.6 g/pKKyavqn87.9-35.2The [facility] HospitalComment on above:Performed By: #### CBC #### [facility] [address] [place] [address] Dr. Vito Faith (RBC) [Entitic vol]89.0 hLEhowkz46.0-99.0The [facility] HospitalComment on above:Performed By: #### CBC #### [facility] [address] [place] [address] Dr. Vito Ferrera #1.0 103/ulCritically high0.3-0.8The [facility] Comment on above:Performed By: #### CBC #### [facility] [address] [place] [address] Dr. Vito Whitesideocytes/100 WBC (Bld)7.3 %Normal1.7-12.0[facility] Comment on above:Performed By: #### CBC #### [facility] [address] [place] [address] Dr. Vito Gilman #7.5 103/ulCritically high1.4-6.5The [facility] Comment on above:Performed By: #### CBC #### [facility] [address] [place] [address] Dr. Vito Whiteheadutrophils/100 WBC (Bld)56.3 %Ujukyg11.0-75.0The [facility] HospitalComment on above:Performed By: #### CBC #### [facility] [address] [place] [address] Dr. Vito Levi mean volume (Bld) [Entitic vol]9.6 fLNormal9.5-13.5The [facility] HospitalComment on above:Performed By: #### CBC #### [facility] [address] [address] [address] Vito GrimmPLT272 103/hdEcgpqq427-395Zir [facility] on above: Performed By: #### CBC #### [facility] [address] [place] [address] Dr. Vito GrimmRBC4.38 106/ulNormal4.20-5.40The [facility] on above:Performed By: #### CBC #### [facility] [address] [place] [address] Dr. Viot GrimmWBC13.4 103/ulCritically high4.0-11.0The [facility] on above:Performed By: #### CBC #### [facility] [address] [place] [address] Dr. Vito Mensah URINE PROFILEon 98-11-3196Uzifiomhr Ql (U)NegativeNormal NEGATIVEMercer County Community Hospital on above:Performed By: #### ERUR #### [facility] [address] [place] [address] Dr. Vito GrimmClarity (U)SL CLOUDYAbnormalCLEARThe [facility] HospitalComasc[facility] on above:Performed By: #### ERUR #### [facility] [address] [place] [address] Dr. Vito Fernandez (U)LT. YELLOWNormalYELLOWMercer County Community Hospital on above:Performed By: #### ERUR #### [facility] [address] [place] [address] Dr. Vito Scott micrscopic examination will be performed if indicated. NormalThe [facility] HospitalComascension providence hospital on above:Performed By: #### ERUR #### [facility] [address] [place] [address] Dr. Vito GrimmGlucose Ql (U)>1000AbnormalNEGATIVEElyria Memorial HospitalComascension prov[facility] hospital on above:Performed By: #### ERUR #### [facility] [address] [place] [address] Dr. Vito GrimmHemoglobin Ql (U)NegativeNormalNEGATIVEElyria Memorial Hospital Comment on above:Performed By: #### ERUR #### [facility] [address] [place] [address] Dr. Vito Licea Ql (U)NegativeNormalNEGATIVEElyria Memorial HospitalComment on above:Performed By: #### ERUR #### [facility] [address] [place] [address] Dr. Vito GrimmLEUKOCYTESNegativeNormalNEGATIVEThe [facility] HospitalComment on above:Performed By: #### ERUR #### [facility] [address] [place] [address] Dr. Vito GrimmNitrite Ql (U)NegativeNormalNEGATIVEElyria Memorial HospitalComment on above:Performed By: #### ERUR #### [facility] [address] [place] [address] Dr. Vito GrimmpH (U)5.5 [pH]Normal5-9The [facility] HospitalComment on above: Performed By: #### ERUR #### [facility] [address] [place] [address] Dr. Vito GrimmSPEC GRAVITY1.125Zxgcft0.005-<=1.025The [facility] HospitalComment on above:Performed By: #### ERUR #### [facility] [address] [place] [address] Dr. Vito Casiano PROTEINNegativeNormalNEGATIVE/ TRACEThe [facility] Comment on above:Performed By: #### ERUR #### [facility] [address] [place] [address] Dr. Vito Diop MICRO INDNOT INDICATEDNoalThKeenan Private HospitalComment on above:Performed By: #### ERUR #### [facility] [address] [place] [address] Dr. Vito Stuartgen Qn (U)0.2 {Helen'U}/dLNormal0.2 - 1.0The [facility] HospitalComment on above:Performed By: #### ERUR #### [facility] [address] [place] [address] Dr. Vito Bah OF CARE GLUCOSEon 38-94-8165Adgojea [Mass/Vol]279 mg/dL Critically zmsz94-378Ups [facility] HospitalComment on above:Performed By: #### POCGLUC #### [facility] [address] [place] [address] Dr. Vito GrimmPROF 14(COMP METB)on 68-39-5487Bpcwamq [Mass/Vol]3.5 g/dLNormal 3.4-5.0The [facility] HospitalComment on above:Performed By: #### CMP, HSTROPN #### [facility] [address] [place] [address] Dr. Vito GrimmAlbumin/Globulin [Mass ratio]1.0 {ratio}NormalThe [facility] HospitalComment on above:Performed By: #### CMP, HSTROPN #### [facility] [address] [place] [address] Dr. Vito Carpenter [Catalytic activity/Vol]85 U/CXbyqcg70-411Dsf [facility] HospitalComment on above:Performed By: #### CMP, HSTROPN #### [facility] [address] [place] [address] Dr. Vito Simon [Catalytic activity/Vol]28 U/ZGshxkc07-33Npc [facility] HospitalComment on above:Performed By: #### CMP, HSTROPN #### [facility] [address] [place] [address] Dr. Vito Dominguez gap [Moles/Vol]15.9 mmol/LNormalThe [facility] on above:Performed By: #### CMP, HSTROPN #### [facility] [address] [place] [address] Dr. Vito [place] [Catalytic activity/Vol]16 U/QKqoiey37-54Nfh Wayne Hospitalment on above:Performed By: #### CMP, HSTROPN #### [facility] [address] [place] [address] Dr. Vito GrimmBilirubin [Mass/Vol]0.2 mg/dLNormal0.2-1.0The [facility] Comment on above:Performed By: #### CMP, HSTROPN #### [facility] [address] [place] [address] Dr. Vito GrimmCalcium [Mass/Vol]8.8 mg/dLNormal8.5-10.1The [facility] Comment on above:Performed By: #### CMP, HSTROPN #### [facility] [address] [place] [address] Dr. Vito GrimmChloride [Moles/Vol]96 mmol/LCritically oax12-230Vcr [facility] HospitalComment on above:Performed By: #### CMP, HSTROPN #### [facility] [address] [place] [address] Dr. Vito GrimmCO2 [Moles/Vol]24.1 mmol/OUcheun21.0-32.0The [facility] Comment on above:Performed By: #### CMP, HSTROPN #### [facility] [address] [place] [address] Dr. Vito GrimmCreatinine [Mass/Vol]0.85 mg/dLNormal0.55-1.02The [facility] HospitalComment on above:Performed By: #### CMP, HSTROPN #### [facility] [address] [place] [address] Dr. Vito IsaacGFR-AF WALLISIAN>60Normal>=60The [facility] HospitalComment on above:Performed By: #### CMP, HSTROPN #### [facility] [address] [place] [address] Dr. Vito IsaacGFR-NON AF WALLISIAN>60Normal>=60The [facility] HospitalComment on above:Performed By: #### CMP, HSTROPN #### [facility] [address] [place] [address] Dr. Vito GrimmGlobulin (S) [Mass/Vol]3.6 g/dLNormalThe [facility] HospitalComment on above:Performed By: #### CMP, HSTROPN #### [facility] [address] [address] [address] Vito GrimmGlucose [Mass/Vol]350 mg/dLCritically mxgi34-311Nms [facility] HospitalComment on above:Performed By: #### CMP, HSTROPN #### [facility] [address] [address] [address] Vito GrimmPotassium [Moles/Vol]4.0 mmol/LNormal3.5-5.1The [facility] Comment on above:Performed By: #### CMP, HSTROPN #### [facility] [address] [address] [address] Vito GrimmProtein [Mass/Vol]7.1 g/dLNormal6.4-8.2The [facility] Comment on above:Performed By: #### CMP, HSTROPN #### [facility] [address] [place] [address] Dr. Vito GrimmSodium [Moles/Vol]132 mmol/LCritically mvt014-972Knu [facility] HospitalComment on above:Performed By: #### CMP, HSTROPN #### [facility] [address] [address] [address] Vito GrimmUrea nitrogen [Mass/Vol]10.0 mg/dLNormal7.0-18.0The [facility] HospitalComment on above:Performed By: #### CMP, HSTROPN #### [facility] [address] [place] [address] Dr. Vito GrimmUrea nitrogen/Creatinine [Mass ratio]11.8 mg/mgNormalThe [facility] HospitalComment on above:Performed By: #### CMP, HSTROPN #### [facility] [address] [place] [address] Dr. Vito Lawrence, HIGH SENSITIVITYon 52-54-9985TUZHAU<4.3Pzrdoc4.0-51.3 The [facility] HospitalComascension providence [facility] on above:Result Comment: CUT-OFF POINTS HAVE BEEN ESTABLISHED BASED ON THE FOURTH UNIVERSAL DEFINITIONS OF MYOCARDIAL INFARCTION. THE UPPER REFERENCE LIMIT (URL) OF TROPONIN, DEFINED THE 99TH PERCENTILE OF cTnI DISTRIBUTION IN A REFERENCE POPULATION, HAS BEEN CONFIRMED THE DECISION THRESHOLD FOR [place] DIAGNOSIS.Performed By: #### CMP, HSTROPN #### [facility] [address] [place] [address] Dr. Vito Oakley ( test) IA.rapid Ql (U)Ordered By: Kyler Miramontes on 74-72-0842DPO ( test) Ql (U)NegativeAshtabula County Medical Center CBC AUTO DIFFon 52-69-0930HLGC #0.1 103/ulNormal0.0-0.1[facility] Comment on above:Performed By: #### CMP, HSTROPN #### [facility] [address] [place] [address] Dr. Vito GrimmBasophils/100 WBC (Bld)0.6 %Normal0.2-2.0[facility] Comment on above:Performed By: #### CMP, HSTROPN #### [facility] [address] [place] [address] Dr. Vito Freeman #0.2 103/ulNormal0.0-0.7The [facility] HospitalComment on above: Performed By: #### CMP, HSTROPN #### [facility] [address] [place] [address] Dr. Vito Isaacosinophils/100 WBC (Bld)1.1 %Normal0.9-7.0[facility] Comment on above:Performed By: #### CMP, HSTROPN #### [facility] [address] [place] [address] Dr. Vito Isaacrythrocyte distribution width (RBC) [Ratio]12.6 %Dwptpf30.0-15.0 [facility] HospitalComment on above:Performed By: #### CMP, HSTROPN #### [facility] [address] [place] [address] Dr. Vito GrimmHematocrit (Bld) [Volume fraction]39.7 %Grwwbk24.0-48.0[facility] HospitalComment on above:Performed By: #### CMP, HSTROPN #### [facility] [address] [place] [address] Dr. Vito GrimmHemoglobin (Bld) [Mass/Vol]12.9 g/tPDojnlo79.0-16.0The [facility] HospitalComment on above:Performed By: #### CMP, HSTROPN #### [facility] [address] [place] [address] Dr. Vito Ledbetter #0.07 10e3/ulCritically high0.00-0.03The [facility] Comment on above:Performed By: #### CMP, HSTROPN #### [facility] [address] [place] [address] Dr. Vito Ledbetter %0.5 %Normal0.0-0.5The [facility] HospitalComment on above: Performed By: #### CMP, HSTROPN #### [facility] [address] [place] [address] Dr. Vito Phan #5.3 103/ulCritically high1.2-3.8The [facility] Comment on above:Performed By: #### CMP, HSTROPN #### [facility] [address] [place] [address] Dr. Vito Schneiderhocytes/100 WBC (Bld)38.4 %Qxwtkp79.5-60.0The [facility] HospitalComment on above:Performed By: #### CMP, HSTROPN #### [facility] [address] [place] [address] Dr. Vito KasperUAL DIFF REQNONormalThe [facility] HospitalComment on above: Performed By: #### CMP, HSTROPN #### [facility] [address] [place] [address] Dr. Vito Escobar (RBC) [Entitic mass]29.7 jhWonxtu04.7-34.0The [facility] HospitalComment on above:Performed By: #### CMP, HSTROPN #### [facility] [address] [place] [address] Dr. Vito FaithHC (RBC) [Mass/Vol]32.5 g/dEZlrvia01.9-35.2The [facility] HospitalComment on above:Performed By: #### CMP, HSTROPN #### [facility] [address] [place] [address] Dr. Vito FaithV (RBC) [Entitic vol]91.5 zEKdgzhj15.0-99.0The [facility] HospitalComment on above:Performed By: #### CMP, HSTROPN #### [facility] [address] [place] [address] Dr. Vito Ferrera #1.0 103/ulCritically high0.3-0.8The [facility] Comment on above:Performed By: #### CMP, HSTROPN #### [facility] [address] [place] [address] Dr. Vito Whitesideocytes/100 WBC (Bld)7.3 %Normal1.7-12.0The [facility] Comment on above:Performed By: #### CMP, HSTROPN #### [facility] [address] [place] [address] Dr. Vito Gilman #7.2 103/ulCritically high1.4-6.5The [facility] Comment on above:Performed By: #### CMP, HSTROPN #### [facility] [address] [place] [address] Dr. Vito Whiteheadutrophils/100 WBC (Bld)52.1 %Qniktx16.0-75.0The [facility] HospitalComment on above:Performed By: #### CMP, HSTROPN #### [facility] [address] [place] [address] Dr. Vito Solet mean volume (Bld) [Entitic vol]9.4 fLCritically low 9.5-13.5The [facility] HospitalComment on above:Performed By: #### CMP, HSTROPN #### [facility] [address] [place] [address] Dr. Vito GrimmPLT297 103/taZflhbr678-293Hcx [facility] HospitalComment on above: Performed By: #### CMP, HSTROPN #### [facility] [address] [place] [address] Dr. Vito GrimmRBC4.34 106/ulNormal4.20-5.40The [facility] HospitalComment on above:Performed By: #### CMP, HSTROPN #### [facility] [address] [place] [address] Dr. Vito GrimmWBC13.9 103/ulCritically high4.0-11.0The [facility] HospitalComment on above:Performed By: #### CMP, HSTROPN #### [facility] [address] [place] [address] Dr. Vito GrimmDEPAKENE/ VALPROIC ACIDon 94-53-3859ZMBQMRTP89.9 ug/mlNormal 50.0-100.0The [facility] HospitalComment on above:Performed By: #### VALP #### [facility] [address] [place] [address] Dr. Vito GrimmLACTATE/LACTIC ACIDon 22-99-3351Usyukhx [Moles/Vol]3.6 mmol/L Critically high0.4-1.9The [facility] HospitalComment on above:Performed By: #### CMP, HSTROPN #### [facility] [address] [place] [address] Dr. Vito GrimmPROF 14(COMP METB)on 40-69-8993Bgtklcf [Mass/Vol]3.6 g/dLNormal 3.4-5.0The [facility] HospitalComment on above:Performed By: #### CMP, HSTROPN #### [facility] [address] [place] [address] Dr. Vito GrimmAlbumin/Globulin [Mass ratio]1.1 {ratio}NormalThe [facility] HospitalComment on above:Performed By: #### CMP, HSTROPN #### [facility] [address] [place] [address] Dr. Vito MitchellP [Catalytic activity/Vol]57 U/AQmoqrx92-970Whv [facility] HospitalComment on above:Performed By: #### CMP, HSTROPN #### [facility] [address] [place] [address] Dr. Vito Simon [Catalytic activity/Vol]23 U/YFukepf31-62Qjr [facility] HospitalComment on above:Performed By: #### CMP, HSTROPN #### [facility] [address] [place] [address] Dr. Vito Huffon gap [Moles/Vol]17.0 mmol/LNormalThe [facility] Comment on above:Performed By: #### CMP, HSTROPN #### [facility] [address] [place] [address] Dr. Vito GrimmAST [Catalytic activity/Vol]16 U/TTqmkzn07-55Vqr [facility] HospitalComment on above:Performed By: #### CMP, HSTROPN #### [facility] [address] [place] [address] Dr. Vito GrimmBilirubin [Mass/Vol]0.1 mg/dLCritically low0.2-1.0The [facility] HospitalComment on above:Performed By: #### CMP, HSTROPN #### [facility] [address] [place] [address] Dr. Vito GrimmCalcium [Mass/Vol]8.8 mg/dLNormal8.5-10.1[facility] Comment on above:Performed By: #### CMP, HSTROPN #### [facility] [address] [place] [address] Dr. Vito GrimmChloride [Moles/Vol]101 mmol/OMgorjd58-365SkqElyria Memorial Hospital Comment on above:Performed By: #### CMP, HSTROPN #### [facility] [address] [place] [address] Dr. Vito GrimmCO2 [Moles/Vol]23.5 mmol/EKrqnfh78.0-32.0[facility] Comment on above:Performed By: #### CMP, HSTROPN #### [facility] [address] [address] [address] Vito GrimmCreatinine [Mass/Vol]0.72 mg/dLNormal0.55-1.02The [facility] HospitalComment on above:Performed By: #### CMP, HSTROPN #### [facility] [address] [address] [address] Vito IsaacGFR-AF WALLISIAN>60Normal>=60The [facility] HospitalComment on above:Performed By: #### CMP, HSTROPN #### [facility] [address] [address] [address] Vito IsaacGFR-NON AF WALLISIAN>60Normal>=60The [facility] HospitalComment on above:Performed By: #### CMP, HSTROPN #### [facility] [address] [address] [address] Vito GrimmGlobulin (S) [Mass/Vol]3.4 g/dLNormalThe [facility] HospitalComment on above:Performed By: #### CMP, HSTROPN #### [facility] [address] [address] [address] Vito GrimmGlucose [Mass/Vol]146 mg/dLCritically jvkz67-297Xfn [facility] Hospitalment on above:Performed By: #### CMP, HSTROPN #### [facility] [address] [address] [address] Vito GrimmPotassium [Moles/Vol]4.5 mmol/LNormal3.5-5.1The [facility] Comment on above:Performed By: #### CMP, HSTROPN #### [facility] [address] [address] [address] Vito GrimmProtein [Mass/Vol]7.0 g/dLNormal6.4-8.2The [facility] Comment on above:Performed By: #### CMP, HSTROPN #### [facility] [address] [address] [address] Vito GrimmSodium [Moles/Vol]137 mmol/JPslgje519-057Bfh [facility] Comment on above:Performed By: #### CMP, HSTROPN #### [facility] [address] [address] [address] Vito GrimmUrea nitrogen [Mass/Vol]11.0 mg/dLNormal7.0-18.0[facility] HospitalComment on above:Performed By: #### CMP, HSTROPN #### [facility] [address] [address] [address] Vito GrimmUrea nitrogen/Creatinine [Mass ratio]15.3 mg/mgNormalThKeenan Private HospitalComment on above:Performed By: #### CMP, HSTROPN #### [facility] [address] [address] [address] Vito GrimmAlbumin [Mass/volume] in Serum or PlasmaOrdered By: Ajit Pettit on 12-61-5175Omssrjl [Mass/Vol]4.2 g/dL3.2-5.5FEast [facility] Basophils Auto (Bld) [#/Vol]Ordered By: Ajit Pettit on 02-77-1897Aibiemtnk (Bld) [#/Vol]0.1 10*3/uL0.0-0.2FEast Ohio Regional HospitalBasophils/100 WBC Auto (Bld)Ordered By: Ajit Pettit on 06-58-6556Vtvzsvacr/100 WBC (Bld)0.8 % .[facility] CenterCholesterol [Mass/volume] in Serum or Plasma Ordered By: Ajit Pettit on 98-78-0883Jaengxwynou [Mass/Vol]174 mg/bZ680-255 [facility] CenterComment on above:Chol less than 200 mg/dl low riskChol 201-239 mg/dl borderline riskChol 240 mg/dl and greater high risk Cholesterol in LDL Calc [Mass/Vol]Ordered By: Ajit Pettit on 11-05-2022 Cholesterol in LDL [Mass/Vol]66 mg/dL0-100[facility] Comment on above:LDL ATP III CLASSIFICATIONLDL less than 100 mg/dL OptimalLDL 100-129 mg/dL Near or above sjenrieXMR211-172 mg/dL Borderline highLDL 160-189 mg/dL HighLDL greater than 189 mg/dL Very highCholesterol in VLDL Calc [Mass/Vol]Ordered By: Ajit Pettit on 67-52-9855Csmpoehojvp in VLDL [Mass/Vol]66 mg/dLAshtabula County Medical CenterCreatinine and Glomerular filtration rate.predicted panel (S/P/Bld)Ordered By: Ajit Pettit on 35-65-2810Czaousumim [Mass/Vol]0.57 mg/dL0.44-1.03[facility] CenterEosinophils Auto (Bld) [#/Vol]Ordered By: Ajit Pettit on 00-73-0333Sonemfyjczh (Bld) [#/Vol]0.1 10*3/uL0.0-0.45[facility] CenterEosinophils/100 WBC Auto (Bld) Ordered By: Ajit Pettit on 79-27-5764Pdjisjdnbrl/100 WBC (Bld)0.7 %.[facility] CenterErythrocyte distribution width Auto (RBC) [Ratio]Ordered By: Ajit Pettit on 46-10-3440Fftivklrykd distribution width (RBC) [Ratio]13.5 % 11.9-15.3FEast Ohio Regional HospitalEstimated glomerular filtration rate (GFR) non- AmericanOrdered By: Ajit Pettit on 53-39-7761EPA/1.73 sq M.predicted among non-blacks MDRD (S/P/Bld) [Vol rate/Area]> 60 mL/MinAshtabula County Medical CenterGlobulin Calc (S) [Mass/Vol]Ordered By: Ajit Pettit on 76-34-2046Eymwqxid (S) [Mass/Vol]2.6 g/dLAshtabula County Medical Center Glucose mean value [Mass/volume] in Blood Estimated from glycated hemoglobin Ordered By: Ajit Pettit on 45-81-0204Cvzqcmp glucose Estimated from glycated hemoglobin (Bld) [Mass/Vol]143 mg/dLAshtabula County Medical CenterHPV 16+18+31+33+35+39+45+51+52+56+58+59+68 DNA cervix probe + signal amplificOrdered By: Ajit Pettit on 34-06-4345PTK 16+18+31+33+35+39+45+51+52+56+58+59+68 DNA Probe+sig amp Ql (Cvx)PositiveNegativeAshtabula County Medical CenterComment on above:This nucleic acid amplification test detects fourteen high-risk HPV types (16,18,31,33,35,39,45,51,52,56,58,59,66,68)without differentiation. Hematocrit Auto (Bld) [Volume fraction]Ordered By: Ajit Pettit on 11-05-2022 Hematocrit (Bld) [Volume fraction]40.1 %34.0-46.4FEast Ohio Regional HospitalHemoglobin A1c percentageOrdered By: Ajit Pettit on 83-56-0393IpS7r (Bld) [Mass fraction]6.6 %4.3-5.6FEast Ohio Regional HospitalComment on above: Increased risk for diabetes: 5.7 - 6.4diabetes: >6.4glycemic control for adults with diabetes: <7.0Hemoglobin [Mass/volume] in BloodOrdered By: Ajit Pettit on 11-07-3061Yofuforgpg (Bld) [Mass/Vol]13.2 g/dL11.8-15.4FEast Ohio Regional HospitalLaboratory - Microbiology and Antimicrobial susceptibilityOrdered By: Ajit Pettit on 11-05-2022N. gonorrhoeae DNA NAYELY+probe Ql (Unsp spec) NegativeNegativeAshtabula County Medical CenterComment on above:Performed at: =[facility] [id number] Director: Breanna Clark MD, Phone: [phone] [#/volume] corrected for nucleated erythrocytes in Blood by Automated counOrdered By: Ajit Pettit on 11-05-2022 WBC corrected for nucl RBC Auto (Bld) [#/Vol]13.7 10*3/uL3.8-11.6FEast Ohio Regional HospitalLymphocytes Auto (Bld) [#/Vol]Ordered By: Ajit Pettit on 91-25-1751Cznwgmxyisa (Bld) [#/Vol]5.1 10*3/uL1.00-4.8[facility] CenterLymphocytes/100 WBC Auto (Bld)Ordered By: Ajit Pettit on 64-22-8318Fawcmzgpezt/100 WBC (Bld)37.3 %.[facility] HamiltonH Auto (RBC) [Entitic mass]Ordered By: Ajit Pettit on 45-02-2713DAU (RBC) [Entitic mass]29.5 pg24.7-34.3FEast Ohio Regional HospitalMCHC Auto (RBC) [Mass/Vol]Ordered By: Ajit Pettit on 54-99-0219EUGG (RBC) [Mass/Vol]32.8 g/dL 32.0-35.0[facility] CenterMCV Auto (RBC) [Entitic vol]Ordered By: Ajit Pettit on 98-40-0467MAK (RBC) [Entitic vol]90.0 yE87-002LkmvxyldkAshtabula County Medical CenterMicrocytes LM Ql (Bld)Ordered By: Ajit Pettit on 36-11-1755Dkuogltuzj Ql (Bld)SlightAshtabula County Medical CenterMonocytes Auto (Bld) [#/Vol]Ordered By: Ajit Pettit on 51-93-9571Meyoqazkd (Bld) [#/Vol] 1.1 10*3/uL0.0-0.8[facility] CenterMonocytes/100 WBC Auto (Bld) Ordered By: Ajit Pettit on 84-68-1687Mhthymluj/100 WBC (Bld)8.3 %.[facility] Medical CenterNeutrophils Auto (Bld) [#/Vol]Ordered By: Ajit Pettit on 03-09-9635Hhxgqrvljeq (Bld) [#/Vol]7.3 10*3/uL1.8-7.7FEast Ohio Regional HospitalNeutrophils/100 WBC Auto (Bld)Ordered By: Ajit Pettit on 11-05-2022 Neutrophils/100 WBC (Bld)52.9 %.[facility] CenterNo Panel InformationOrdered By: Ajit Pettit on 23-59-616591079828-Wdfrqaa Vitamin D Total28.8 ng/cD07-637HsocballsAshtabula County Medical CenterComment on above:VITAMIN D STATUS 25(OH)VITAMIN D RANGE (ng/mL) Deficient <20 Insufficient 20 to <37Zspmzhfqvw11 to 100Reference: Jovanni MF,Dominique ARORA, Gillian GRAHAM, et al. Evaluation,treatment, and prevention of vitamin D deficiency; an Endocrine Society clinical practice guideline. JCEM. 2010; 96(7):1911-30.Luz Elena albicans (NAYELY)NegativeNegRegency Hospital CompanyComment on above: This test was developed and its performance characteristicsdetermined by [employer]. It has not been cleared orapproved by the Food and Drug Administration. Luz Elena glabrata (NAYELY)NegativeNegativeAshtabula County Medical CenterComment on above:This test was developed and its performance characteristicsdetermined by [employer]. It has not been cleared orapproved by the Food and Drug Administration.Chlamydia trachomatis (NAYELY) (LAB)NegativeNegRegency Hospital CompanyEstimated GFR ()> 60 mL/MinAshtabula County Medical CenterComment on above:GFR estimated reference range: According to KDOQI guidelines, <60 ml/min/1.73m2 is sufficient todiagnose a patient with chronic kidney disease.Human Papilloma Virus Type 16NegativeNegativeAshtabula County Medical CenterHudundas Papilloma Virus Type 18/45NegativeNegativeAshtabula County Medical CenterComment on above:Performed at: = - [facility] [id number] Director: Breanna Clark MD, Phone: [phone] at: - [facility] [id number] Director: Breanna Clark MD, Phone: [phone] Pap w/Ct-Ng Age Based (Off-Site)Note.[facility] Medical CenterComment on above:TESTS RESULT FLAG UNITS REF RANGE LAB Clinician Provided Cytology Information No. of containers..01 ThinPrep VialAge Brian TATE Monisha... [id number] FLAG LEGEND: L-Low Normal,H-High Normal,LL-Alert Low,HH-Alert High <-Panic Low,>- Panic High,A-Abnormal,AA-Critical Abnormal-------- Performed at:01 =G [facility] [address] [place] [address] Breanna Clark MD, Mwuxanqi Creatinine Clearance (ChemN/Ad[facility] County HospitalThin Prep Pap CommentNote.[facility] Medical CenterComment on above:TESTS RESULT FLAG UNITS REF RANGE LAB DIAGNOSIS: 02 NEGATIVE FOR INTRAEPITHELIAL LESION OR MALIGNANCY. 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 Endocervical and/or squamous metaplastic cells (endocervical component) are present.Performed by: 02 Larry Mirza, Ring Sorter (ASCP)QC reviewed by: 02 Sammie Thomason, Supervisory Ring Sorter (ASCP). 02Note: Note 02 The Pap smear [...] Normal,H-High Normal,LL-Alert Low,HH-Alert High <-Panic Low,>-Panic High,A-Abnormal,AA-Critical Abnorm al Performed at:[address] [id number] Breanna Clark MD, Ivwncvhfake vaginalis (NAYELY)NegativeNegativeAshtabula County Medical CenterNucleated erythrocytes [Presence] in Blood by Automated countOrdered By: Ajit Pettit on 68-36-5931Tkgpojlvz RBC Auto Ql (Bld)0.1 /100{WBC}0-0.5FEast Ohio Regional HospitalPlatelet adequacy [Presence] in Blood by Light microscopyOrdered By: Ajit Pettit on 57-18-5246Deczrnojp LM Ql (Bld)NormalNormalAshtabula County Medical CenterPlatelet mean volume Auto (Bld) [Entitic vol]Ordered By: Ajit Pettit on 12-97-3280Uqwiosme mean volume (Bld) [Entitic vol]9.1 fL6.3-10.7FEast Ohio Regional HospitalPlatelet morphology finding [Identifier] in BloodOrdered By: Ajit Pettit on 11-05-2022 Platelet morphology finding Nom (Bld)N/AFEast [facility] Regional Hospital Platelets Auto (Bld) [#/Vol]Ordered By: Ajit Pettit on 98-89-6278Sktzlqbws (Bld) [#/Vol]304 10*3/bV889-356XgaqyluppAshtabula County Medical CenterPlatelets Large [Presence] in Blood by Light microscopyOrdered By: Ajit Pettit on 11-05-2022 Platelets Large LM Ql (Bld)[facility] Memorial HospitalPolychromasia [Presence] in Blood by Light microscopyOrdered By: Ajit Pettit on 11-05-2022 Polychromasia LM Ql (Bld)[facility] HospitalProtein [Mass/volume] in Serum or PlasmaOrdered By: Ajit Pettit on 01-80-4647Jfsfdkh [Mass/Vol]6.8 g/dL6.1-7.9[facility] Medical CenterRBC Auto (Bld) [#/Vol] Ordered By: Ajit Pettit on 67-98-8437USG (Bld) [#/Vol]4.46 10*6/uL3.60-5.00 [facility] Medical CenterRB morphologyOrdered By: Ajit Pettit on 72-93-5641HBH morphology finding Nom (Bld)N/AFEast [facility] Regional Hospital Serum or plasma alanine aminotransferase measurement without P-5'-P (enzymatic activiOrdered By: Ajit Pettit on 03-98-3353YPT No additional P-5'-P [Catalytic activity/Vol]16 U/H52-16BkywecuhzMercy Health Perrysburg Hospitalerum or plasma albumin/globulin mass ratioOrdered By: Ajit Pettit on 11-05-2022 Albumin/Globulin [Mass ratio]1.6 {ratio}[facility] Hospitalerum or plasma alkaline phosphatase measurement (enzymatic activity/volume)Ordered By: Ajit Pettit on 43-33-8953KKE [Catalytic activity/Vol]52 U/P80-52XasbaduhqMercy Health Perrysburg Hospitalerum or plasma anion gap determinationOrdered By: Ajit Pettit on 68-39-4849Gqitv gap [Moles/Vol]14.2 mmol/L6.0-15.0[facility] Hospitalerum or plasma aspartate aminotransferase measurement (enzymatic activity/volume)Ordered By: Ajit Pettit on 45-78-7765XOT [Catalytic activity/Vol]20 U/O92-51QzdgviqtaMercy Health Perrysburg Hospitalerum or plasma calcium measurement (mass/volume)Ordered By: Ajit Pettit on 85-67-6849Kfzqmjk [Mass/Vol]9.3 mg/dL8.2-10.2FCherrington Hospitalerum or plasma chloride measurement (moles/volume)Ordered By: Ajit Pettit on 11-05-2022 Chloride [Moles/Vol]99 mmol/G38-500CgagxluwwMercy Health Perrysburg Hospitalerum or plasma glucose measurement (mass/volume)Ordered By: Ajit Pettit on 11-05-2022 Glucose [Mass/Vol]96 mg/vC52-884XyagfybarAshtabula County Medical CenterComment on above:ADA recommended reference rangeRandom Glucose Reference Range is dependent on time and content of last meal. Glucose of more than 200 mg/dL in a nonstressed, ambulatory subject supports the diagnosisof Diabetes Mellitus.Serum or plasma high density lipoprotein (HDL) cholesterol measurementOrdered By: Ajit Pettit on 49-36-3068Sobvhreuxfo in HDL [Mass/Vol]42 mg/tB01-44ItziqvqmyAshtabula County Medical CenterComment on above:HDL CHOL ATP-III CLASSIFICATION Cardiovascular RiskHDL > or equal to 60 mg/dL LOWHDL < 40 mg/dL HIGHSerum or plasma potassium measurement (moles/volume)Ordered By: Ajit Pettit on 63-52-4036Vomhvisda [Moles/Vol]4.3 mmol/L3.5-5.1FCherrington Hospitalerum or plasma sodium measurement (moles/volume)Ordered By: Ajit Pettit on 39-33-1414Eqsfak [Moles/Vol]132 mmol/L467-209NvfteuhcrMercy Health Perrysburg Hospitalerum or plasma total bilirubin measurement (mass/volume)Ordered By: Ajit Pettit on 29-17-7428Ujglsfyir [Mass/Vol]0.3 mg/dL0.3-1.2FCherrington Hospitalerum or plasma total carbon dioxide measurement (moles/volume) Ordered By: Ajit Pettit on 17-07-8231ZZ8 [Moles/Vol]23.1 mmol/L22.0-30.0 [facility] Hospitalerum or plasma total cholesterol/high density lipoprotein (HDL) cholesterol mass ratOrdered By: Ajit Pettit on 11-05-2022 Cholesterol.total/Cholesterol in HDL [Mass ratio]4.1 {ratio}<5.0[facility] Hospitalerum or plasma urea nitrogen measurement (mass/volume) Ordered By: Ajit Pettit on 11-55-5403Wjvk nitrogen [Mass/Vol]7 mg/dL9-23 [facility] CenterTS DL <= 0.005 mIU/L QnOrdered By: Ajit Pettit on 10-95-7741TRV Qn4.07 m[IU]/L0.45-5.33[facility] Triglyceride [Mass/volume] in Serum or PlasmaOrdered By: Ajit Pettit on 58-90-8263Medxixczjoyy [Mass/Vol]330 mg/sL34-604XmqauqaooAshtabula County Medical CenterComment on above:TRIG ATP III CLASSIFICATIONTRIG less than 150 mg/dL NormalTRIG 150-199 mg/dL Borderline highTRIG 200-500 mg/dL High TRIG greater than 500 mg/dL Very highStandard traceable to the Center for Disease Conrtrol and Prevention (CDC) test method.Urine culture routineOrdered By: Ajit Pettit on 62-30-9984Puamhhbi identified Cx Nom (U)No Growth 2 DaysAshtabula County Medical CenterVaginal fluid Atopobium vaginae DNA detection by probe and target amplification methoOrdered By: Ajit Pettit on 11-05-2022. vaginae DNA NAYELY+probe Ql (Vag fld)Low - 0 Score.[facility] Medical CenterVaginal fluid Megasphaera species type 1 DNA detection by probe and target amplificat Ordered By: Ajit Pettit on 67-17-0541Ajuxucflrvk sp type 1 DNA NAYELY+probe Ql (Vag fld)Low - 0 Score.[facility] CenterComment on above: Calculate total score by adding the 3 individual bacterialvaginosis (BV) marker scores together. Total score isinterpreted as follows:Total score 0-1: Indicates the absence of BV.Total score 2: Indeterminate for BV. Additional clinical data should be evaluated to establish a diagnosis.Total score 3-6: Indicates the presence of BV.This test was developed and its performance characteristicsdetermined by [employer]. It has not been cleared or approvedby the Food and Drug Administration.Vaginal fluid bacterial vaginosis associated bacterium 2 DNA detection by probe and tOrdered By: Ajit Pettit on 11-05-2022 Bacterial vaginosis associated bacterium 2 DNA NAYELY+probe Ql (Vag fld)Low - 0 Score.[facility] CenterWBC Auto (Bld) [#/Vol]Ordered By: Ajit Pettit on 29-76-8332FTC (Bld) [#/Vol]13.7 10*3/uL3.8-11.6FEast Ohio Regional HospitalBasophils Auto (Bld) [#/Vol]Ordered By: Ajit Pettit on 07-08-2022 Basophils (Bld) [#/Vol]0.1 10*3/uL0.0-0.2FEast Ohio Regional Hospital Basophils/100 WBC Auto (Bld)Ordered By: Ajit Pettit on 06-82-6119Iiltsohhf/100 WBC (Bld)0.4 %.[facility] CenterBlood hemoglobin measurement (mass/volume)Ordered By: Ajit Pettit on 67-20-4485Sjinctgvde (Bld) [Mass/Vol] 12.7 g/dL11.8-15.4FEast Ohio Regional HospitalBlood leukocytes automated count (number/volume)Ordered By: Ajit Pettit on 77-63-1171NNP (Bld) [#/Vol]14.3 10*3/uL4.5-11.0[facility] CenterBody fluid albumin measurement (mass/volume)Ordered By: Ajit Pettit on 10-93-3534Hzfgwku (Body fld) [Mass/Vol] 3.6 g/dL3.2-5.5FEast Ohio Regional HospitalCreatinine and Glomerular filtration rate.predicted panel (S/P/Bld)Ordered By: Ajit Pettit on 07-08-2022 Creatinine [Mass/Vol]0.66 mg/dL0.44-1.03[facility] Eosinophils Auto (Bld) [#/Vol]Ordered By: Ajit Pettit on 46-14-2136Nzskrghodrb (Bld) [#/Vol]0.2 10*3/uL0.0-0.45[facility] CenterEosinophils/100 WBC Auto (Bld)Ordered By: Ajit Pettit on 71-36-1213Ycrubdssuoq/100 WBC (Bld) 1.2 %.[facility] CenterErythrocyte distribution width Auto (RBC) [Ratio]Ordered By: Ajit Pettit on 01-23-4813Jqvufbssfee distribution width (RBC) [Ratio]13.5 %11.9-15.3FEast Ohio Regional HospitalEstimated glomerular filtration rate (GFR) non- AmericanOrdered By: Ajit Pettit on 44-10-9934HHQ/1.73 sq M.predicted among non-blacks MDRD (S/P/Bld) [Vol rate/Area]> 60 mL/MinAshtabula County Medical CenterGlobulin Calc (S) [Mass/Vol]Ordered By: Ajit Pettit on 60-14-6926Jrkqewyx (S) [Mass/Vol]2.4 g/dL [facility] CenterHematocrit Auto (Bld) [Volume fraction]Ordered By: Ajit Pettit on 24-67-1083Swquladqwu (Bld) [Volume fraction]38.9 %34.0-46.4 [facility] CenterLaboratory - Hematology and Cell countsOrdered By: Ajit Pettit on 98-13-2830Ibxgcbjth RBC/100 WBC (Bld) [Ratio]0.0 %0-0.5 [facility] Medical CenterLymphocytes Auto (Bld) [#/Vol]Ordered By: Ajit Pettit on 80-40-1840Dtfrriixrim (Bld) [#/Vol]4.5 10*3/uL1.00-4.8[facility] CenterLymphocytes/100 WBC Auto (Bld)Ordered By: Ajit Pettit on 78-85-1741Mzjcirqxpny/100 WBC (Bld)31.2 %.[facility] CenterMC Auto (RBC) [Entitic mass]Ordered By: Ajit Pettit on 54-84-3352YFH (RBC) [Entitic mass]29.7 pg24.7-34.3FEast Ohio Regional HospitalMCHC Auto (RBC) [Mass/Vol]Ordered By: Ajit Pettit on 67-20-3474ERVS (RBC) [Mass/Vol]32.7 g/dL 32.0-35.0[facility] CenterMCV Auto (RBC) [Entitic vol]Ordered By: Ajit Pettit on 74-09-1740BLF (RBC) [Entitic vol]90.8 uP29-032WgkwexpakAshtabula County Medical CenterMonocytes Auto (Bld) [#/Vol]Ordered By: Ajit Pettit on 18-43-0557Ctxxjnfrk (Bld) [#/Vol]1.1 10*3/uL0.0-0.8[facility] CenterMonocytes/100 WBC Auto (Bld)Ordered By: Ajit Pettit on 07-08-2022 Monocytes/100 WBC (Bld)7.8 %.[facility] Medical CenterNeutrophils Auto (Bld) [#/Vol]Ordered By: Ajit Pettit on 66-18-4824Qswrjertzvt (Bld) [#/Vol]8.5 10*3/uL1.8-7.7FEast Ohio Regional HospitalNeutrophils/100 WBC Auto (Bld) Ordered By: Ajit Pettit on 67-65-0367Psckibrajmp/100 WBC (Bld)59.4 %.[facility] CenterNo Panel InformationOrdered By: Ajit Pettit on 42-07-4820Lzaarabpx GFR ()> 60 mL/MinAshtabula County Medical CenterComment on above:GFR estimated reference range: According to KDOQI guidelines, <60 ml/min/1.73m2 is sufficient todiagnose a patient with chronic kidney disease.Pharmacy Creatinine Clearance (ChemN/[facility] HospitalPlatelet mean volume Auto (Bld) [Entitic vol]Ordered By: Ajit Pettit on 26-08-8213Xuajgrnt mean volume (Bld) [Entitic vol]8.3 fL6.3-10.7FEast Ohio Regional HospitalPlatelets Auto (Bld) [#/Vol]Ordered By: Ajit Pettit on 08-08-0891Cfcwucaqb (Bld) [#/Vol]332 10*3/eM754-193WimyiiileAshtabula County Medical CenterProtein [Mass/volume] in Serum or PlasmaOrdered By: Ajit Pettit on 46-75-7317Rvqczpt [Mass/Vol]6.0 g/dL6.1-7.9[facility] Medical CenterRBC Auto (Bld) [#/Vol]Ordered By: Ajit Pettit on 66-35-5460PBP (Bld) [#/Vol]4.29 10*6/uL3.60-5.00[facility] Hospitalerum or plasma alanine aminotransferase measurement without P-5'-P (enzymatic activiOrdered By: Ajit Pettit on 12-52-7252WTR No additional P-5'-P [Catalytic activity/Vol]26 U/L10-60 [facility] Hospitalerum or plasma albumin/globulin mass ratio Ordered By: Ajit Pettit on 02-18-4769Iwmddcb/Globulin [Mass ratio]1.5 {ratio} [facility] Hospitalerum or plasma alkaline phosphatase measurement (enzymatic activity/volume)Ordered By: Ajit Pettit on 60-04-0515TUF [Catalytic activity/Vol]46 U/D81-74SajtaojofMercy Health Perrysburg Hospitalerum or plasma anion gap determinationOrdered By: Ajit Pettit on 70-03-0356Wuwbk gap [Moles/Vol]15.1 mmol/L6.0-15.0[facility] Hospitalerum or plasma aspartate aminotransferase measurement (enzymatic activity/volume)Ordered By: Ajit Pettit on 06-60-3685ZHE [Catalytic activity/Vol]31 U/D99-35LbpqutmigMercy Health Perrysburg Hospitalerum or plasma calcium measurement (mass/volume)Ordered By: Ajit Pettit on 30-61-3304Oizvbdx [Mass/Vol]9.3 mg/dL8.2-10.2FCherrington Hospitalerum or plasma chloride measurement (moles/volume) Ordered By: Ajit Pettit on 34-36-1008Ulqapgmw [Moles/Vol]101 mmol/L95-114 [facility] Hospitalerum or plasma glucose measurement (mass/volume)Ordered By: Ajit Pettit on 32-31-3037Dctdwhe [Mass/Vol]129 mg/dL 70-100[facility] CenterComment on above:ADA recommended reference rangeRandom Glucose Reference Range is dependent on time and content of last meal. Glucose of more than 200 mg/dL in a nonstressed, ambulatory subject supports the diagnosisof Diabetes Mellitus.Serum or plasma potassium measurement (moles/volume)Ordered By: Ajit Pettit on 56-60-5847Jcofzabdu [Moles/Vol]5.0 mmol/L3.5-5.1FCherrington Hospitalerum or plasma sodium measurement (moles/volume)Ordered By: Ajit Pettit on 74-83-3408Fubeog [Moles/Vol]135 mmol/O588-966JjwzzqsvjMercy Health Perrysburg Hospitalerum or plasma total bilirubin measurement (mass/volume)Ordered By: Ajit Pettit on 07-08-2022 Bilirubin [Mass/Vol]0.5 mg/dL0.3-1.2FCherrington Hospitalerum or plasma total carbon dioxide measurement (moles/volume)Ordered By: Ajit Pettit on 95-19-8070NO7 [Moles/Vol]23.9 mmol/L22.0-30.0[facility] Hospitalerum or plasma urea nitrogen measurement (mass/volume)Ordered By: Ajit Pettit on 25-04-4554Gqci nitrogen [Mass/Vol]12 mg/dL9-23[facility] CenterTS DL <= 0.005 mIU/L QnOrdered By: Ajit Pettit on 08-13-8306WYU Qn4.14 m[IU]/L0.45-5.33[facility] CenterBasophils Auto (Bld) [#/Vol]Ordered By: Ajit Pettit on 89-90-7098Jxpxsxmej (Bld) [#/Vol]0.1 10*3/uL 0.0-0.2FEast Ohio Regional HospitalBasophils/100 WBC Auto (Bld)Ordered By: Ajit Pettit on 92-94-1053Cqgiuqspj/100 WBC (Bld)0.9 %.[facility] CenterBlood hemoglobin measurement (mass/volume)Ordered By: Ajit Pettit on 32-48-5581Ceamnxyrks (Bld) [Mass/Vol]12.9 g/dL11.8-15.4FEast Ohio Regional HospitalBlood leukocytes automated count (number/volume)Ordered By: Ajit Pettit on 71-09-5814LFO (Bld) [#/Vol]16.8 10*3/uL4.5-11.0[facility] CenterBody fluid albumin measurement (mass/volume)Ordered By: Ajit Pettit on 01-38-8156Xubebwb (Body fld) [Mass/Vol]3.5 g/dL3.2-5.5FEast Ohio Regional HospitalCreatinine and Glomerular filtration rate.predicted panel (S/P/Bld)Ordered By: Ajit Pettit on 68-07-9943Axdikljbly [Mass/Vol]0.58 mg/dL 0.44-1.03[facility] CenterEosinophils Auto (Bld) [#/Vol]Ordered By: Ajit Pettit on 57-46-8288Fipbkaohjhi (Bld) [#/Vol]0.1 10*3/uL0.0-0.45 [facility] CenterEosinophils/100 WBC Auto (Bld)Ordered By: Ajit Pettit on 10-44-6650Sqosrkcyace/100 WBC (Bld)0.7 %.[facility] CenterErythrocyte distribution width Auto (RBC) [Ratio]Ordered By: Ajit Pettit on 57-66-4282Glwbnmevvqh distribution width (RBC) [Ratio]13.3 %11.9-15.3 [facility] CenterEstimated glomerular filtration rate (GFR) non- AmericanOrdered By: Ajit Pettit on 90-83-6256CMX/1.73 sq M.predicted among non-blacks MDRD (S/P/Bld) [Vol rate/Area]> 60 mL/MinAshtabula County Medical CenterGlobulin Calc (S) [Mass/Vol]Ordered By: Ajit Pettit on 06-02-2022 Globulin (S) [Mass/Vol]2.5 g/dLAshtabula County Medical CenterHematocrit Auto (Bld) [Volume fraction]Ordered By: Ajit Pettit on 90-38-3362Zulwuyazzr (Bld) [Volume fraction]38.8 %34.0-46.4FEast Ohio Regional HospitalLaboratory - Hematology and Cell countsOrdered By: Ajit Pettit on 54-30-5106Gzvarlvuz RBC/100 WBC (Bld) [Ratio]0.0 %0-0.5FEast Ohio Regional HospitalLymphocytes Auto (Bld) [#/Vol]Ordered By: Ajit Pettit on 43-48-7116Azwlyhpiuif (Bld) [#/Vol]3.4 10*3/uL1.00-4.8[facility] CenterLymphocytes/100 WBC Auto (Bld)Ordered By: Ajit Pettit on 83-83-6287Kjpypcnzhcd/100 WBC (Bld)20.3 %. [facility] HamiltonH Auto (RBC) [Entitic mass]Ordered By: Ajit Pettit on 06-18-3692CNS (RBC) [Entitic mass]30.3 pg24.7-34.3FEast Ohio Regional HospitalMCHC Auto (RBC) [Mass/Vol]Ordered By: Ajit Pettit on 06-02-2022 MCHC (RBC) [Mass/Vol]33.2 g/dL32.0-35.0[facility] CenterMCV Auto (RBC) [Entitic vol]Ordered By: Ajit Pettit on 76-44-1559EZR (RBC) [Entitic vol]91.1 lE99-299UeqnmxofwAshtabula County Medical CenterMonocytes Auto (Bld) [#/Vol] Ordered By: Ajit Millanc on 25-07-6382Ztnbmtvsn (Bld) [#/Vol]1.2 10*3/uL0.0-0.8 [facility] CenterMonocytes/100 WBC Auto (Bld)Ordered By: Ajit Millanc on 57-79-2288Gqgfcwpok/100 WBC (Bld)7.2 %.[facility] CenterNeutrophils Auto (Bld) [#/Vol]Ordered By: Ajit Millanc on 06-02-2022 Neutrophils (Bld) [#/Vol]11.9 10*3/uL1.8-7.7FEast Ohio Regional Hospital Neutrophils/100 WBC Auto (Bld)Ordered By: Ajit Pettit on 06-02-2022 Neutrophils/100 WBC (Bld)70.9 %.[facility] CenterNo Panel InformationOrdered By: Ajit Pettit on 05-58-6021Vaokxhjlf GFR ()> 60 mL/MinAshtabula County Medical CenterComment on above:GFR estimated reference range: According to KDOQI guidelines, <60 ml/min/1.73m2 is sufficient todiagnose a patient with chronic kidney disease.Pharmacy Creatinine Clearance (ChemN/[facility] HospitalPlatelet mean volume Auto (Bld) [Entitic vol]Ordered By: Ajit Pettit on 35-24-8219Gtbbpgkr mean volume (Bld) [Entitic vol]9.2 fL6.3-10.7FEast Ohio Regional HospitalPlatelets Auto (Bld) [#/Vol]Ordered By: Ajit Pettit on 05-17-0664Hchhaezex (Bld) [#/Vol]313 10*3/vX679-997UimpdlzoaAshtabula County Medical CenterProtein [Mass/volume] in Serum or PlasmaOrdered By: Ajit Pettit on 60-70-1085Ugtdfdc [Mass/Vol]6.0 g/dL6.1-7.9 [facility] CenterRBC Auto (Bld) [#/Vol]Ordered By: Ajit Pettit on 60-98-1752TGE (Bld) [#/Vol]4.26 10*6/uL3.60-5.00[facility] Hospitalerum or plasma alanine aminotransferase measurement without P-5'-P (enzymatic activiOrdered By: Ajit Pettit on 70-89-3731YNY No additional P-5'-P [Catalytic activity/Vol]20 U/Z10-44GwjrkkbgaMercy Health Perrysburg Hospitalerum or plasma albumin/globulin mass ratioOrdered By: Ajit Pettit on 06-02-2022 Albumin/Globulin [Mass ratio]1.4 {ratio}[facility] Hospitalerum or plasma alkaline phosphatase measurement (enzymatic activity/volume)Ordered By: Aijt Pettit on 70-03-5137JIF [Catalytic activity/Vol]48 U/J76-61LdtrjbadpMercy Health Perrysburg Hospitalerum or plasma anion gap determinationOrdered By: Ajit Pettit on 01-77-4640Rsknm gap [Moles/Vol]15.8 mmol/L6.0-15.0[facility] Hospitalerum or plasma aspartate aminotransferase measurement (enzymatic activity/volume)Ordered By: Ajit Pettit on 23-64-9043UXQ [Catalytic activity/Vol]21 U/H66-52AemuqasrwMercy Health Perrysburg Hospitalerum or plasma calcium measurement (mass/volume)Ordered By: Ajit Pettit on 95-82-5217Pkgvbrz [Mass/Vol]9.1 mg/dL8.2-10.2FCherrington Hospitalerum or plasma chloride measurement (moles/volume)Ordered By: Ajit Pettit on 06-02-2022 Chloride [Moles/Vol]100 mmol/E63-380CectbxcmjMercy Health Perrysburg Hospitalerum or plasma glucose measurement (mass/volume)Ordered By: Ajit Pettit on 06-02-2022 Glucose [Mass/Vol]141 mg/vC97-654CbhapcylnAshtabula County Medical CenterComment on above:ADA recommended reference range Random Glucose Reference Range is dependent on time and content of last meal. Glucose of more than 200 mg/dL in a nonstressed, ambulatory subject supports the diagnosis of Diabetes Mellitus.ADA recommended reference rangeRandom Glucose Reference Range is dependent on time and content of last meal. Glucose of more than 200 mg/dL in a nonstressed, ambulatory subject supports the diagnosisof Diabetes Mellitus.Serum or plasma potassium measurement (moles/volume)Ordered By: Ajit Pettit on 60-54-4729Ltngtvpof [Moles/Vol]4.3 mmol/L3.5-5.1FCherrington Hospitalerum or plasma sodium measurement (moles/volume)Ordered By: Ajit Pettit on 95-64-7863Frpbvi [Moles/Vol]132 mmol/Y825-833JhwjpctnzMercy Health Perrysburg Hospitalerum or plasma total bilirubin measurement (mass/volume) Ordered By: Ajit Pettit on 48-65-3606Gxagttsmi [Mass/Vol]0.5 mg/dL0.3-1.2 [facility] Hospitalerum or plasma total carbon dioxide measurement (moles/volume)Ordered By: Ajit Pettit on 38-45-2694SA0 [Moles/Vol] 20.5 mmol/L22.0-30.0[facility] Hospitalerum or plasma urea nitrogen measurement (mass/volume)Ordered By: Ajit Pettit on 48-48-5571Lvgp nitrogen [Mass/Vol]12 mg/dL9-23[facility] CenterTS DL <= 0.005 mIU/L QnOrdered By: Ajit Pettit on 73-35-6741ALC Qn2.06 m[IU]/L0.45-5.33 [facility] CenterBasophils Auto (Bld) [#/Vol]Ordered By: Jasmin Velázquez on 78-71-4572Txyxvfomv (Bld) [#/Vol]0.1 10*3/uL0.0-0.2FEast Ohio Regional HospitalBasophils/100 WBC Auto (Bld)Ordered By: Jasmin Velázquez on 05-27-2022 Basophils/100 WBC (Bld)0.6 %.[facility] CenterBlood hemoglobin measurement (mass/volume)Ordered By: Jasmin Velázquez on 76-59-8599Yjlbtvtnjs (Bld) [Mass/Vol]13.1 g/dL11.8-15.4FEast Ohio Regional HospitalBlood leukocytes automated count (number/volume)Ordered By: Jasmin Velázquez on 71-98-0236LWF (Bld) [#/Vol]13.2 10*3/uL4.5-11.0[facility] CenterCT biopsyOrdered By: Jasmin Velázquez on 40-00-4120Ihaafqglsfu [Mass/Vol]307 mg/iD620-775AfnaaparxAshtabula County Medical CenterEosinophils Auto (Bld) [#/Vol]Ordered By: Jasmin Velázquez on 45-01-4127Mrwavemlddl (Bld) [#/Vol]0.1 10*3/uL0.0-0.45[facility] CenterEosinophils/100 WBC Auto (Bld)Ordered By: Jasmin Velázquez on 05-27-2022 Eosinophils/100 WBC (Bld)1.0 %.[facility] CenterErythrocyte distribution width Auto (RBC) [Ratio]Ordered By: Jasmin Velázquez on 05-27-2022 Erythrocyte distribution width (RBC) [Ratio]13.5 %11.9-15.3FEast Ohio Regional HospitalFerritin [Mass/volume] in Serum or PlasmaOrdered By: Jasmin Velázquez on 51-56-9050Sklnaojn [Mass/Vol]49.6 ng/kA69-786.8[facility] CenterHematocrit Auto (Bld) [Volume fraction]Ordered By: Jasmin Velázquez on 51-81-3308Mwkkmbkrmm (Bld) [Volume fraction]40.1 %34.0-46.4FEast Ohio Regional HospitalIron [Mass/volume] in Serum or PlasmaOrdered By: Jasmin Velázquez on 64-20-3105Onde [Mass/Vol]50 ug/iZ68-190ImjhvonisAshtabula County Medical CenterIron binding capacity [Mass/volume] in Serum or PlasmaOrdered By: Jasmin Velázquez on 49-28-8518Ggeq binding capacity [Mass/Vol]430 ug/dL022-566YlyiscewhAshtabula County Medical CenterIron saturation [Mass Fraction] in Serum or PlasmaOrdered By: Jasmin Velázquez on 96-24-2485Hqtt saturation [Mass fraction]11.0 %20-50[facility] CenterLaboratory - Hematology and Cell countsOrdered By: Jasmin Velázquez on 31-06-1118Jchenupcs RBC/100 WBC (Bld) [Ratio]0.1 %0-0.5FEast Ohio Regional HospitalLymphocytes Auto (Bld) [#/Vol]Ordered By: Jasmin Velázquez on 04-68-4775Dcghposoysx (Bld) [#/Vol]3.3 10*3/uL1.00-4.8[facility] CenterLymphocytes/100 WBC Auto (Bld)Ordered By: Jasmin Velázquez on 05-27-2022 Lymphocytes/100 WBC (Bld)24.8 %.[facility] Auto (RBC) [Entitic mass]Ordered By: Jasmin Velázquez on 07-82-4317XNH (RBC) [Entitic mass]30.0 pg24.7-34.3FEast Ohio Regional HospitalMCHC Auto (RBC) [Mass/Vol]Ordered By: Jasmin Velázquez on 44-60-2078IJLX (RBC) [Mass/Vol]32.7 g/dL32.0-35.0[facility] CenterMCV Auto (RBC) [Entitic vol]Ordered By: Jasmin Velázquez on 50-76-1343GXU (RBC) [Entitic vol]91.5 rQ50-013YdpajxhvtAshtabula County Medical Center Monocytes Auto (Bld) [#/Vol]Ordered By: Jasmin Velázquez on 83-99-9656Brzfdiwsl (Bld) [#/Vol]1.0 10*3/uL0.0-0.8[facility] CenterMonocytes/100 WBC Auto (Bld)Ordered By: Jasmin Velázquez on 80-74-8869Btvgycphw/100 WBC (Bld)7.6 %. [facility] CenterNeutrophils Auto (Bld) [#/Vol]Ordered By: Jasmin Velázquez on 32-09-9427Bwfjuhrpsqd (Bld) [#/Vol]8.7 10*3/uL1.8-7.7FEast Ohio Regional HospitalNeutrophils/100 WBC Auto (Bld)Ordered By: Jasmin Velázquez on 37-48-9201Wzbshgddodx/100 WBC (Bld)66.0 %.[facility] CenterNo Panel InformationOrdered By: Jasmin Velázquez on 73-43-6359RWM/Neo comment [facility] CenterComment on above:See report. Scanned copy available in EMR.Platelet mean volume Auto (Bld) [Entitic vol]Ordered By: Jasmin Velázquez on 10-84-9060Kvmmkvsc mean volume (Bld) [Entitic vol]8.8 fL6.3-10.7 [facility] CenterPlatelets Auto (Bld) [#/Vol]Ordered By: Jasmin Velázquez on 96-18-8728Qhmrzvctq (Bld) [#/Vol]284 10*3/hS183-829LsonxbyreAshtabula County Medical CenterRBC Auto (Bld) [#/Vol]Ordered By: Jasmin Velázquez on 12-58-7867PAU (Bld) [#/Vol]4.38 10*6/uL3.60-5.00[facility] CenterBasophils Auto (Bld) [#/Vol]Ordered By: Ajit Pettit on 64-46-0500Acrwuernf (Bld) [#/Vol] 0.1 10*3/uL0.0-0.2FEast Ohio Regional HospitalBasophils/100 WBC Auto (Bld) Ordered By: Ajit Pettit on 03-82-9777Jvgopessb/100 WBC (Bld)0.6 %.[facility] CenterBlood hemoglobin measurement (mass/volume)Ordered By: Ajit Pettit on 27-60-8014Odqooycsmt (Bld) [Mass/Vol]13.4 g/dL11.8-15.4FEast Ohio Regional HospitalBlood leukocytes automated count (number/volume)Ordered By: Ajit Pettit on 67-45-6679XQI (Bld) [#/Vol]16.2 10*3/uL4.5-11.0[facility] CenterEosinophils Auto (Bld) [#/Vol]Ordered By: Ajit Pettit on 11-60-8922Bokshdgetrs (Bld) [#/Vol]0.1 10*3/uL0.0-0.45[facility] CenterEosinophils/100 WBC Auto (Bld)Ordered By: Ajit Pettit on 34-07-7958Lyqescrouck/100 WBC (Bld)0.9 %.[facility] Erythrocyte distribution width Auto (RBC) [Ratio]Ordered By: Ajit Pettit on 27-56-8352Qqtuoxlbuyf distribution width (RBC) [Ratio]13.6 %11.9-15.3FEast [facility] Regional HospitalHematocrit Auto (Bld) [Volume fraction]Ordered By: Ajit Pettit on 33-86-7074Zyvhcbjxzz (Bld) [Volume fraction]40.5 %34.0-46.4FEast [facility] HospitalLaboratory - Hematology and Cell countsOrdered By: Ajit Pettit on 11-54-9254Uuprkhnlj RBC/100 WBC (Bld) [Ratio]0.0 %0-0.5FEast [facility] Regional HospitalLymphocytes Auto (Bld) [#/Vol]Ordered By: Ajit Pettit on 26-65-5004Aqukmxkvruj (Bld) [#/Vol]4.7 10*3/uL1.00-4.8[facility] CenterLymphocytes/100 WBC Auto (Bld)Ordered By: Ajit Pettit on 26-88-0286Lhmixirecta/100 WBC (Bld)28.9 %.[facility] HamiltonH Auto (RBC) [Entitic mass]Ordered By: Ajit Pettit on 47-14-5986PXG (RBC) [Entitic mass]30.7 pg24.7-34.3FEast [facility] Regional HospitalMCHC Auto (RBC) [Mass/Vol]Ordered By: Ajit Pettit on 54-88-0151CFIK (RBC) [Mass/Vol]33.2 g/dL 32.0-35.0[facility] CenterMCV Auto (RBC) [Entitic vol]Ordered By: Ajit Pettit on 90-79-5425VKW (RBC) [Entitic vol]92.5 lE68-764LaffbqkawAshtabula County Medical CenterMonocytes Auto (Bld) [#/Vol]Ordered By: Ajit Pettit on 73-19-5557Lrqpaawdt (Bld) [#/Vol]1.1 10*3/uL0.0-0.8[facility] CenterMonocytes/100 WBC Auto (Bld)Ordered By: Ajit Pettit on 05-07-2022 Monocytes/100 WBC (Bld)6.8 %.[facility] CenterNeutrophils Auto (Bld) [#/Vol]Ordered By: Ajit Pettit on 95-83-8478Pqgmiumorsd (Bld) [#/Vol]10.2 10*3/uL1.8-7.7FEast [facility] Regional HospitalNeutrophils/100 WBC Auto (Bld) Ordered By: Ajit Pettit on 03-50-5843Anmhcfjnlmg/100 WBC (Bld)62.8 %.[facility] CenterNo Panel InformationOrdered By: Ajit Pettit on 12-94-0730Dishfshc EstimateNormalNormCleveland Clinic Fairview HospitalPlatelet Morphology CommentNormalNormCleveland Clinic Fairview HospitalPlatelet mean volume Auto (Bld) [Entitic vol]Ordered By: Ajit Pettit on 22-83-2238Zyodauzu mean volume (Bld) [Entitic vol]8.0 fL6.3-10.7FEast [facility] Platelets Auto (Bld) [#/Vol]Ordered By: Ajit Pettit on 08-47-6311Zubymuckn (Bld) [#/Vol]369 10*3/dI299-350HkbstryvaAshtabula County Medical CenterRBC Auto (Bld) [#/Vol]Ordered By: Ajit Pettit on 69-09-4460WXL (Bld) [#/Vol]4.38 10*6/uL 3.60-5.00[facility] CenterRB morphologyOrdered By: Ajit Pettit on 56-64-6082BGM morphology finding Nom (Bld)NormalAshtabula County Medical CenterBacterial blood cultureOrdered By: Rod Alvarado on 90-37-6570Tzpowijz identified Cx Nom (Bld)NO GROWTH 5 [facility] identified Cx Nom (Bld)NO GROWTH 5 [facility] Bacterial blood cultureOrdered By: Ajit Pettit on 59-71-2138Nvrllavt identified Cx Nom (Bld)NO GROWTH [facility] HospitalUrine culture routineOrdered By: Ajit Pettit on 95-23-4335Vqvlcaha identified Cx Nom (U)2 [facility] HospitalActivated partial thromboplastin time (aPTT) in platelet poor plasma by coagulation aOrdered By: Rod Alvarado on 49-30-8146xBXN Coag (PPP) [Time]29.2 s25.1-36.5FEast [facility] Automated epithelial cells count in urine sediment (number/area)Ordered By: Rod Alvarado on 57-61-3746Stfkmbblob cells Auto (Urine sed) [#/Area]5-9 [HPF]0-2 [facility] CenterAutomated erythrocytes count in urine sediment (number/area)Ordered By: Rod Alvarado on 60-10-6292BWQ Auto (Urine sed) [#/Area] 1-2 [HPF]0-4[facility] CenterAutomated leukocytes count in urine sediment (number/area)Ordered By: Rod Silvawindy on 72-41-0747ABF Auto (Urine sed) [#/Area]1-2 [HPF]0-4FEast [facility] HospitalBasophils Auto (Bld) [#/Vol]Ordered By: Rod Alvarado on 98-53-4378Hwluxcywl (Bld) [#/Vol]0.2 10*3/uL 0.0-0.2FEast [facility] HospitalBasophils Auto (Bld) [#/Vol]Ordered By: Ajit Pettit on 01-43-8558Qnqkdocsq (Bld) [#/Vol]0.1 10*3/uL0.0-0.2FEast [facility] HospitalBasophils/100 WBC Auto (Bld)Ordered By: Rod Alvarado on 90-94-5369Eseffyjcp/100 WBC (Bld)1.0 %.[facility] Basophils/100 WBC Auto (Bld)Ordered By: Ajit Pettit on 89-24-6983Kmjppvxzm/100 WBC (Bld)0.7 %.[facility] CenterBilirubin Auto test strip Ql (U) Ordered By: Rod Jenny on 62-44-8129Vqcqzohzp Ql (U)1+NegativeAshtabula County Medical CenterBlood hemoglobin measurement (mass/volume)Ordered By: Rod Alvarado on 47-62-2740Bmyinjcjiy (Bld) [Mass/Vol]13.1 g/dL11.8-15.4FEast [facility] HospitalBlood hemoglobin measurement (mass/volume)Ordered By: Ajit Pettit on 61-06-3336Txfjrxlqdf (Bld) [Mass/Vol]12.9 g/dL11.8-15.4FEast [facility] HospitalBlood leukocytes automated count (number/volume)Ordered By: Rod Alvarado on 73-68-0738YQS (Bld) [#/Vol]15.9 10*3/uL4.5-11.0[facility] CenterBlood leukocytes automated count (number/volume)Ordered By: Ajit Pettit on 00-95-1774AZI (Bld) [#/Vol]14.7 10*3/uL4.5-11.0[facility] CenterBody fluid albumin measurement (mass/volume)Ordered By: Ajit Pettit on 64-47-2449Bgtlkrq (Body fld) [Mass/Vol]3.6 g/dL3.2-5.5FEast [facility] HospitalCreatinine and Glomerular filtration rate.predicted panel (S/P/Bld)Ordered By: Rod Alvarado on 91-32-0286Swpmybpvdb [Mass/Vol]0.58 mg/dL 0.44-1.03[facility] CenterCreatinine and Glomerular filtration rate.predicted panel (S/P/Bld)Ordered By: Ajit Pettit on 12-30-2057Fibhvojzua [Mass/Vol]0.58 mg/dL0.44-1.03[facility] CenterEosinophils Auto (Bld) [#/Vol]Ordered By: Rod Alvarado on 73-10-8478Smuocyczhzf (Bld) [#/Vol]0.2 10*3/uL0.0-0.45[facility] CenterEosinophils Auto (Bld) [#/Vol] Ordered By: Ajit Pettit on 84-23-3760Jretbdsypwf (Bld) [#/Vol]0.1 10*3/uL 0.0-0.45[facility] CenterEosinophils/100 WBC Auto (Bld)Ordered By: Rod Alvarado on 18-50-0071Fljdjsrdgyo/100 WBC (Bld)1.0 %.[facility] CenterEosinophils/100 WBC Auto (Bld)Ordered By: Ajit Pettit on 17-77-5876Tkuzdguqgcz/100 WBC (Bld)0.9 %.[facility] Erythrocyte distribution width Auto (RBC) [Ratio]Ordered By: Rod Alvarado on 41-20-6708Fbtdlpbpnud distribution width (RBC) [Ratio]13.6 %11.9-15.3FEast Ohio Regional HospitalErythrocyte distribution width Auto (RBC) [Ratio]Ordered By: Ajit Pettit on 07-50-4576Ajtqmgajash distribution width (RBC) [Ratio]13.6 % 11.9-15.3FEast [facility] HospitalEstimated glomerular filtration rate (GFR) non- AmericanOrdered By: Rod Alvarado on 10-24-8445QZX/1.73 sq M.predicted among non-blacks MDRD (S/P/Bld) [Vol rate/Area]> 60 mL/MinAshtabula County Medical CenterEstimated glomerular filtration rate (GFR) non- AmericanOrdered By: Ajit Pettit on 25-88-0299ZTN/1.73 sq M.predicted among non- blacks MDRD (S/P/Bld) [Vol rate/Area]> 60 mL/MinAshtabula County Medical CenterGlobulin Calc (S) [Mass/Vol]Ordered By: Ajit Pettit on 22-72-5922Eolgefrw (S) [Mass/Vol]2.6 g/dLAshtabula County Medical CenterHematocrit Auto (Bld) [Volume fraction]Ordered By: Rod Alvarado on 56-98-9825Tcwlywjdsk (Bld) [Volume fraction]39.0 %34.0-46.4FEast Ohio Regional HospitalHematocrit Auto (Bld) [Volume fraction]Ordered By: Ajit Pettit on 06-09-1634Vwriostxvs (Bld) [Volume fraction]39.0 %34.0-46.4FEast [facility] Regional HospitalKetones Auto test strip (U) [Mass/Vol]Ordered By: Rod Alvarado on 49-12-2231Cpnchdv (U) [Mass/Vol]Trace NegativeAshtabula County Medical CenterLaboratory - Chemistry and Chemistry - challengeOrdered By: Rod Alvarado on 94-02-8305Vazfrw [Catalytic activity/Vol] 37.0 U/I02-01IrlbutkvvAshtabula County Medical CenterLaboratory - CoagulationOrdered By: Rod Alvarado on 13-44-5647II Coag (PPP) [Time]9.6 s9.0-12.9[facility] CenterLaboratory - Hematology and Cell countsOrdered By: Rod Alvarado on 52-38-1218Xziugtwzn RBC/100 WBC (Bld) [Ratio]0.0 %0-0.5FEast Ohio [facility] HospitalLaboratory - Hematology and Cell countsOrdered By: Ajit Pettit on 17-20-7443Tsajvqvvx RBC/100 WBC (Bld) [Ratio]0.0 %0-0.5FEast Ohio Regional HospitalLymphocytes Auto (Bld) [#/Vol]Ordered By: Rod Alvarado on 76-12-8798Jaudbijwawh (Bld) [#/Vol]4.3 10*3/uL1.00-4.8[facility] Medical CenterLymphocytes Auto (Bld) [#/Vol]Ordered By: Ajit Pettit on 89-69-6155Nygwyqujzfk (Bld) [#/Vol]3.6 10*3/uL1.00-4.8[facility] CenterLymphocytes/100 WBC Auto (Bld)Ordered By: Rod Alvarado on 05-01-2022 Lymphocytes/100 WBC (Bld)26.9 %.[facility] Medical CenterLymphocytes/100 WBC Auto (Bld)Ordered By: Ajit Pettit on 02-56-2159Gdlkdljaxvd/100 WBC (Bld) 24.8 %.[facility] Auto (RBC) [Entitic mass]Ordered By: Rod Alvarado on 10-98-5457MCX (RBC) [Entitic mass]30.5 pg24.7-34.3FMansfield Hospital Auto (RBC) [Entitic mass]Ordered By: Ajit Pettit on 81-53-3962LSF (RBC) [Entitic mass]30.5 pg24.7-34.3FNorwalk [facility] Hospital Auto (RBC) [Mass/Vol]Ordered By: Rod Alvarado on 22-16-8603MBHZ (RBC) [Mass/Vol]33.5 g/dL32.0-35.0[facility] Auto (RBC) [Mass/Vol]Ordered By: Ajit Pettit on 87-90-7436XBTQ (RBC) [Mass/Vol]32.9 g/dL 32.0-35.0[facility] Auto (RBC) [Entitic vol]Ordered By: Rod Alvarado on 01-48-6240OZY (RBC) [Entitic vol]91.0 rC31-451YhqrjynjoAshtabula County Medical CenterMCV Auto (RBC) [Entitic vol]Ordered By: Ajit Pettit on 38-93-8124SMW (RBC) [Entitic vol]92.6 tR42-679ZiiiwhrunAshtabula County Medical Center Monocytes Auto (Bld) [#/Vol]Ordered By: Rod Alvarado on 16-70-2254Apfqarsqz (Bld) [#/Vol]1.1 10*3/uL0.0-0.8[facility] CenterMonocytes Auto (Bld) [#/Vol]Ordered By: Ajit Pettit on 87-07-5728Kflehsdwr (Bld) [#/Vol]1.1 10*3/uL0.0-0.8[facility] CenterMonocytes/100 WBC Auto (Bld) Ordered By: Rod Alvarado on 95-33-4338Kaltliana/100 WBC (Bld)6.7 %.[facility] CenterMonocytes/100 WBC Auto (Bld)Ordered By: Ajit Pettit on 83-57-3426Jbmatfbid/100 WBC (Bld)7.2 %.[facility] Neutrophils Auto (Bld) [#/Vol]Ordered By: Rod Alvarado on 68-81-2899Ccorjrqhztm (Bld) [#/Vol]10.3 10*3/uL1.8-7.7FEast Ohio Regional HospitalNeutrophils Auto (Bld) [#/Vol]Ordered By: Ajit Pettit on 15-27-8574Rsvgcddkwrh (Bld) [#/Vol]9.8 10*3/uL1.8-7.7FEast Ohio Regional HospitalNeutrophils/100 WBC Auto (Bld)Ordered By: Rod Alvarado on 68-42-1010Wbdydrtmdbh/100 WBC (Bld)64.4 %. [facility] CenterNeutrophils/100 WBC Auto (Bld)Ordered By: Ajit Pettit on 46-20-9671Qjhvfbjsjud/100 WBC (Bld)66.4 %.[facility] CenterNo Panel InformationOrdered By: Rod Alvarado on 50-75-2234Yuuocjtrg GFR ()> 60 mL/MinAshtabula County Medical CenterComment on above: GFR estimated reference range: According to KDOQI guidelines, <60 ml/min/1.73m2 is sufficient todiagnose a patient with chronic kidney disease.Pharmacy Creatinine Clearance (Ktej442.97[facility] CenterNo Panel InformationOrdered By: Ajit Pettit on 70-97-5907Ukmayqitp GFR ()> 60 mL/MinAshtabula County Medical CenterComment on above:GFR estimated reference range: According to KDOQI guidelines, <60 ml/min/1.73m2 is sufficient todiagnose a patient with chronic kidney disease.Pharmacy Creatinine Clearance (ChemN/[facility] HospitalPlatelet mean volume Auto (Bld) [Entitic vol]Ordered By: Rod Alvarado on 36-12-8719Tlvctlcg mean volume (Bld) [Entitic vol]7.6 fL6.3-10.7FEast Ohio Regional HospitalPlatelet mean volume Auto (Bld) [Entitic vol]Ordered By: Ajit Pettit on 87-73-7689Wrhltwcq mean volume (Bld) [Entitic vol]8.1 fL6.3-10.7FEast [facility] Platelet poor plasma international normalized ratio (INR) by coagulation assay (relatOrdered By: Rod Alvarado on 22-09-1788REW Coag (PPP) [Relative time]0.9 {INR}[facility] Medical CenterComment on above:INR Therapeutic Range A) Pre- and Peroperative OAT started two weeks before surgery. NOT HIP SURGERY: 1.5 - 2.5 HIP SURGERY: 2 - 3 B) Primary and secondary prevention of venous THROMBOSIS: 2 - 3 C) Active venous thrombosis, pulmonary embolism and prevention of recurrent venous thrombosis: 2 - 3 D) Prevention of arterial thromboembolism including patients with mechanical heart valves: 3 - 4.5INR Therapeutic Range A) Pre- and Peroperative OAT started two weeks before surgery. NOT HIP SURGERY: 1.5 - 2.5 HIP SURGERY: 2 - 3B) Primary and secondary prevention of venous THROMBOSIS: 2 - 3C) Active venous thrombosis, pulmonary embolismand prevention of recurrent venous thrombosis: 2 - 3D) Prevention of arterial thromboembolismincluding patients with mechanical heart valves: 3 - 4.5Platelets Auto (Bld) [#/Vol]Ordered By: Rod Alvarado on 80-07-7927Qcbnhwhgg (Bld) [#/Vol] 310 10*3/eV805-004AusvdvjjaAshtabula County Medical CenterPlatelets Auto (Bld) [#/Vol] Ordered By: Ajit Pettit on 98-19-0052Pkikxgavf (Bld) [#/Vol]284 10*3/bS079-116 [facility] CenterProtein Auto test strip (U) [Mass/Vol]Ordered By: Rod Alvarado on 19-27-3272Usaluxq (U) [Mass/Vol]NegativeNegativeAshtabula County Medical CenterProtein [Mass/volume] in Serum or PlasmaOrdered By: Ajit Pettit on 19-04-7363Tjtgwwd [Mass/Vol]6.2 g/dL6.1-7.9[facility] CenterRBC Auto (Bld) [#/Vol]Ordered By: Rod Alvarado on 47-16-6361CMH (Bld) [#/Vol]4.29 10*6/uL3.60-5.00[facility] Medical CenterRBC Auto (Bld) [#/Vol]Ordered By: Ajit Pettit on 87-94-9487ZLR (Bld) [#/Vol]4.22 10*6/uL 3.60-5.00[facility] Hospitalerum or plasma alanine aminotransferase measurement without P-5'-P (enzymatic activiOrdered By: Ajit Pettit on 91-45-0912UGC No additional P-5'-P [Catalytic activity/Vol]17 U/L10-60 [facility] Hospitalerum or plasma albumin/globulin mass ratio Ordered By: Ajit Pettit on 66-25-2342Bgmmvnl/Globulin [Mass ratio]1.4 {ratio} [facility] Hospitalerum or plasma alkaline phosphatase measurement (enzymatic activity/volume)Ordered By: Ajit Pettit on 41-29-3336WNE [Catalytic activity/Vol]52 U/B93-02PepwfswxiMercy Health Perrysburg Hospitalerum or plasma aspartate aminotransferase measurement (enzymatic activity/volume)Ordered By: Ajit Pettit on 52-32-9405RII [Catalytic activity/Vol]19 U/L67-43YhzgahdhfMercy Health Perrysburg Hospitalerum or plasma calcium measurement (mass/volume)Ordered By: Rod Alvarado on 78-36-7772Pfcgeyr [Mass/Vol]9.0 mg/dL8.2-10.2FCherrington Hospitalerum or plasma calcium measurement (mass/volume)Ordered By: Ajit Pettit on 79-68-6211Zkkakej [Mass/Vol]9.2 mg/dL8.2-10.2FCherrington Hospitalerum or plasma chloride measurement (moles/volume) Ordered By: Rod Alvarado on 79-55-8565Jmohayoa [Moles/Vol]101 mmol/L95-114 [facility] Hospitalerum or plasma chloride measurement (moles/volume)Ordered By: Ajit Pettit on 02-93-3439Qgjhyrbk [Moles/Vol]100 mmol/X48-822RmeakhdntMercy Health Perrysburg Hospitalerum or plasma glucose measurement (mass/volume)Ordered By: Rod Alvarado on 09-39-9577Uxrjvpb [Mass/Vol]110 mg/dL 70-100[facility] CenterComment on above:ADA recommended reference range Random Glucose Reference Range is dependent on time and content of last meal. Glucose of more than 200 mg/dL in a nonstressed, ambulatory subject supports the diagnosis of Diabetes Mellitus.ADA recommended reference rangeRandom Glucose Reference Range is dependent on time and content of last meal. Glucose of more than 200 mg/dL in a nonstressed, ambulatory subject supports the diagnosisof Diabetes Mellitus.Serum or plasma glucose measurement (mass/volume)Ordered By: Ajit Pettit on 39-22-3180Igpjjcd [Mass/Vol]117 mg/zD61-281ZdfjfccocAshtabula County Medical CenterComment on above:ADA recommended reference range Random Glucose Reference Range is dependent on time and content of last meal. Glucose of more than 200 mg/dL in a nonstressed, ambulatory subject supports the diagnosis of Diabetes Mellitus.ADA recommended reference rangeRandom Glucose Reference Range is dependent on time and content of last meal. Glucose of more than 200 mg/dL in a nonstressed, ambulatory subject supports the diagnosisof Diabetes Mellitus.Serum or plasma potassium measurement (moles/volume)Ordered By: Rod Alvarado on 42-62-1640Vizvjqaqj [Moles/Vol]4.4 mmol/L3.5-5.1FCherrington Hospitalerum or plasma potassium measurement (moles/volume) Ordered By: Ajit Pettit on 76-97-8848Kexyjpdwd [Moles/Vol]4.4 mmol/L3.5-5.1 [facility] Hospitalerum or plasma sodium measurement (moles/volume)Ordered By: Rod Alvarado on 69-34-3634Scogrw [Moles/Vol]135 mmol/L 136-146[facility] Hospitalerum or plasma sodium measurement (moles/volume)Ordered By: Ajit Pettit on 45-36-4491Vtmiuq [Moles/Vol]133 mmol/L 136-146Mer[facility] Hospitalerum or plasma total bilirubin measurement (mass/volume)Ordered By: Rod Alvarado on 25-75-5151Sultbykgh [Mass/Vol]0.7 mg/dL0.3-1.2FCherrington Hospitalerum or plasma total bilirubin measurement (mass/volume)Ordered By: Ajit Pettit on 05-01-2022 Bilirubin [Mass/Vol]0.4 mg/dL0.3-1.2FCherrington Hospitalerum or plasma total carbon dioxide measurement (moles/volume)Ordered By: Rod Alvarado on 85-08-7385RK3 [Moles/Vol]25.9 mmol/L22.0-30.0[facility] Hospitalerum or plasma total carbon dioxide measurement (moles/volume)Ordered By: Ajit Pettit on 96-78-5353ZU1 [Moles/Vol]23.1 mmol/L22.0-30.0[facility] Hospitalerum or plasma urea nitrogen measurement (mass/volume)Ordered By: Rod Alvarado on 96-36-6875Mmej nitrogen [Mass/Vol]11 mg/dL9-[facility] Hospitalerum or plasma urea nitrogen measurement (mass/volume) Ordered By: Ajit Pettit on 73-04-3911Sbqk nitrogen [Mass/Vol]14 mg/dL9- [facility] CenterUrine appearanceOrdered By: Rod Alvarado on 81-30-1816Villozmvdo (U)ClearClearFEast Ohio Regional HospitalUrine bacteria detection by automated methodOrdered By: Rod Alvarado on 05-01-2022 Bacteria Auto Ql (U)1+None SeenAshtabula County Medical CenterUrine color Ordered By: Rod Alvarado on 83-06-6221Gtalj (U)YellowYellowAshtabula County Medical CenterUrine glucose measurement by automated test strip (mass/volume) Ordered By: Rod Alvarado on 34-95-4591Fmmoivo Auto test strip (U) [Mass/Vol] Normal mg/dLNoMercy Health Lorain HospitalUrine hemoglobin detection by automated test stripOrdered By: Rod Alvarado on 87-91-0930Wrxiqmunsy Auto test strip Ql (U)NegativeNegRegency Hospital CompanyUrine lactic acid measurementOrdered By: Rod Alvarado on 92-59-6614Mpjuxqm (U) [Moles/Vol]1.7 mmol/L0.5-2.2FEast Ohio Regional HospitalUrine lactic acid measurement Ordered By: Ajit Pettit on 03-54-0429Nvqpncd (U) [Moles/Vol]2.5 mmol/L0.5-2.2 [facility] CenterComment on above:Results called at 1022 on 05/01/22Results calledat 1022 on 05/01/22Urine leukocyte esterase detection by automated test stripOrdered By: Rod Alvarado on 42-47-6839Sryclqccl esterase Auto test strip Ql (U)2+NegativeAshtabula County Medical CenterUrine nitrite detection by automated test stripOrdered By: Rod Alvarado on 05-01-2022 Nitrite Auto test strip Ql (U)NegativeNegRegency Hospital Company Urobilinogen Auto test strip (U) [Mass/Vol]Ordered By: Rod Alvarado on 39-62-1106Wksrfsrvfmle (U) [Mass/Vol]Normal mg/dLNoMercy Health Lorain HospitalpH Auto test strip (U)Ordered By: Rod Alvarado on 08-56-3968gL (U) 1.030 [pH]1.001-1.030[facility] Medical CenterpH (U)6.0 [pH]5.0-9.0 [facility] CenterBasophils Auto (Bld) [#/Vol]Ordered By: Ajit Pettit on 89-04-2501Cufmpmyou (Bld) [#/Vol]0.2 10*3/uL0.0-0.2FEast Ohio Regional HospitalBasophils/100 WBC Auto (Bld)Ordered By: Ajit Pettit on 04-30-2022 Basophils/100 WBC (Bld)0.9 %.[facility] CenterBlood hemoglobin measurement (mass/volume)Ordered By: Ajit Pettit on 53-44-1340Pexgclbbmf (Bld) [Mass/Vol]13.9 g/dL11.8-15.4FEast Ohio Regional HospitalBlood leukocytes automated count (number/volume)Ordered By: Ajit Pettit on 11-06-6104WQT (Bld) [#/Vol]19.7 10*3/uL4.5-11.0[facility] CenterBody fluid albumin measurement (mass/volume)Ordered By: Ajit Pettit on 34-52-8059Sdsdvys (Body fld) [Mass/Vol]4.1 g/dL3.2-5.5FEast Ohio Regional HospitalCT biopsyOrdered By: Ajit Pettit on 28-07-8923Mbafzpqsujs [Mass/Vol]352 mg/uS825-486MrmdzytsnAshtabula County Medical CenterCholesterol [Mass/volume] in Serum or PlasmaOrdered By: Ajit Pettit on 48-54-1228Syojlptsetb [Mass/Vol]260 mg/hF227-798ZyocbznzeAshtabula County Medical CenterComment on above:Chol less than 200 mg/dl low risk Chol 201-239 mg/dl borderline risk Chol 240 mg/dl and greater high riskChol less than 200 mg/dl low riskChol 201- 239 mg/dl borderline riskChol 240 mg/dl and greater high riskCholesterol in LDL Calc [Mass/Vol]Ordered By: Ajit Pettit on 04-42-2672Sxdixhaeznv in LDL [Mass/Vol]134 mg/dL0-100[facility] CenterComment on above:LDL ATP III CLASSIFICATION LDL less than 100 mg/dL Optimal LDL 100-129 mg/dL Near or above optimal LDL 130-159 mg/dL Borderline high LDL 160-189 mg/dL High LDL greater than 189 mg/dL Very highLDL ATP III CLASSIFICATIONLDL less than 100 mg/dL OptimalLDL 100-129 mg/dL Near or above jmfotkdZNC175-716 mg/dL Borderline highLDL 160-189 mg/dL HighLDL greater than 189 mg/dL Very highCholesterol in VLDL Calc [Mass/Vol]Ordered By: Ajit Pettit on 90-93-5687Iirsuvskiyq in VLDL [Mass/Vol]68 mg/dLAshtabula County Medical CenterCreatinine and Glomerular filtration rate.predicted panel (S/P/Bld)Ordered By: Ajit Pettit on 04-30-2022 Creatinine [Mass/Vol]0.56 mg/dL0.44-1.03[facility] Eosinophils Auto (Bld) [#/Vol]Ordered By: Ajit Pettit on 62-40-7902Lkzfpfsxcym (Bld) [#/Vol]0.2 10*3/uL0.0-0.45[facility] CenterEosinophils/100 WBC Auto (Bld)Ordered By: Ajit Pettit on 77-99-4204Sncumxqwrzo/100 WBC (Bld) 1.0 %.[facility] CenterErythrocyte distribution width Auto (RBC) [Ratio]Ordered By: Ajit Pettit on 56-74-5374Awekzvbypbz distribution width (RBC) [Ratio]13.5 %11.9-15.3FEast Ohio Regional HospitalEstimated glomerular filtration rate (GFR) non- AmericanOrdered By: Ajit Pettit on 63-97-2311GLM/1.73 sq M.predicted among non-blacks MDRD (S/P/Bld) [Vol rate/Area]> 60 mL/MinAshtabula County Medical CenterGlobulin Calc (S) [Mass/Vol]Ordered By: Ajit Pettit on 07-70-4546Nebrraul (S) [Mass/Vol]2.9 g/dL [facility] CenterHematocrit Auto (Bld) [Volume fraction]Ordered By: Ajit Pettit on 15-45-9082Udrljuqxwc (Bld) [Volume fraction]42.9 %34.0-46.4 [facility] CenterIron [Mass/volume] in Serum or PlasmaOrdered By: Ajit Lariossic on 22-11-7922Odmm [Mass/Vol]51 ug/dG60-275XnibqvqbxAshtabula County Medical CenterIron binding capacity [Mass/volume] in Serum or PlasmaOrdered By: Ajit Spasic on 87-71-8153Tzvi binding capacity [Mass/Vol]493 ug/rK232-621 [facility] CenterIron saturation [Mass Fraction] in Serum or PlasmaOrdered By: Ajit Spasic on 25-54-7429Iocp saturation [Mass fraction]10.0 %20-50[facility] CenterLaboratory - Chemistry and Chemistry - challengeOrdered By: Ajit Pettit on 33-44-6191Vngwclezh (Vitamin B12) [Mass/Vol]472 pg/tV220-308KpukesrtwAshtabula County Medical CenterLaboratory - Hematology and Cell countsOrdered By: Ajit Pettit on 53-63-5563Wekkftxds RBC/100 WBC (Bld) [Ratio]0.2 %0-0.5FEast Ohio Regional HospitalLymphocytes Auto (Bld) [#/Vol]Ordered By: Ajit Pettit on 19-82-3014Ajkukydeauy (Bld) [#/Vol]4.1 10*3/uL1.00-4.8[facility] CenterLymphocytes/100 WBC Auto (Bld)Ordered By: Ajit Pettit on 10-29-8791Dcjgrfmecal/100 WBC (Bld)20.8 %. [facility] Auto (RBC) [Entitic mass]Ordered By: Ajit Pettit on 32-80-9684ELO (RBC) [Entitic mass]30.0 pg24.7-34.3FNorwalk Memorial Hospital Auto (RBC) [Mass/Vol]Ordered By: Ajit Pettit on 04-30-2022 MCHC (RBC) [Mass/Vol]32.4 g/dL32.0-35.0[facility] HamiltonV Auto (RBC) [Entitic vol]Ordered By: Ajit Lariossic on 70-37-6377SWE (RBC) [Entitic vol]92.7 hY19-461OlwjqypeeAshtabula County Medical CenterMonocytes Auto (Bld) [#/Vol] Ordered By: Ajit Pettit on 05-27-4637Srswiffxo (Bld) [#/Vol]1.3 10*3/uL0.0-0.8 [facility] CenterMonocytes/100 WBC Auto (Bld)Ordered By: Ajit Pettit on 90-12-0210Pwmyegnmk/100 WBC (Bld)6.8 %.[facility] Medical CenterNeutrophils Auto (Bld) [#/Vol]Ordered By: Ajit Pettit on 04-30-2022 Neutrophils (Bld) [#/Vol]13.9 10*3/uL1.8-7.7FEast [facility] Hospital Neutrophils/100 WBC Auto (Bld)Ordered By: Ajit Pettit on 04-30-2022 Neutrophils/100 WBC (Bld)70.5 %.[facility] CenterNo Panel InformationOrdered By: Ajit Pettit on 10-98-747555000293-Hbfgrop Vitamin D Total19.9 ng/mB19-648ZidngyrlbAshtabula County Medical CenterComment on above:VITAMIN D STATUS 25(OH)VITAMIN D RANGE (ng/mL) Deficient <20 Insufficient 20 to <30 Sufficient 30 to 100 Reference: Dominique Restrepo, Gillian GRAHAM, et al. Evaluation,treatment, and prevention of vitamin D deficiency; an Endocrine Society clinical practice guideline. JCEM. 2010; 96(7):1911-30.VITAMIN D STATUS 25(OH)VITAMIN D RANGE (ng/mL) Deficient <20 Insufficient 20 to <83Mcnmyvybnd63 to 100Reference: Dominique Restrepo, Gillian GRAHAM, et al. Evaluation,treatment, and prevention of vitamin D deficiency; an Endocrine Society clinical practice guideline. JCEM. 2010; 96(7):1911-30.Estimated GFR ()> 60 mL/MinAshtabula County Medical CenterComment on above: GFR estimated reference range: According to KDOQI guidelines, <60 ml/min/1.73m2 is sufficient todiagnose a patient with chronic kidney disease.Pharmacy Creatinine Clearance (ChemN/[facility] HospitalValproic Acid (Depakene) Level59.8 ug/mL50.0-100.0As[facility] County Medical CenterComment on above:Last dose: -Platelet mean volume Auto (Bld) [Entitic vol]Ordered By: Ajit Pettit on 04-55-4194Xldftoeq mean volume (Bld) [Entitic vol]8.7 fL6.3-10.7 [facility] Medical CenterPlatelets Auto (Bld) [#/Vol]Ordered By: Ajit Pettit on [id number] (Bld) [#/Vol]257 10*3/bR796-556BvqlzaktuAshtabula County Medical CenterProtein [Mass/volume] in Serum or PlasmaOrdered By: Ajit Pettit on 42-41-0973Kyuauso [Mass/Vol]7.0 g/dL6.1-7.9[facility] RBC Auto (Bld) [#/Vol]Ordered By: Ajit Pettit on 36-78-9831PSB (Bld) [#/Vol] 4.62 10*6/uL3.60-5.00[facility] Hospitalerum or plasma alanine aminotransferase measurement without P-5'-P (enzymatic activiOrdered By: Ajit Pettit on 08-43-6134CIT No additional P-5'-P [Catalytic activity/Vol]20 U/L10-60 [facility] Hospitalerum or plasma albumin/globulin mass ratio Ordered By: Ajit Pettit on 17-22-6239Rxxahtp/Globulin [Mass ratio]1.4 {ratio} [facility] Hospitalerum or plasma alkaline phosphatase measurement (enzymatic activity/volume)Ordered By: Ajit Pettit on 76-90-1576ZIS [Catalytic activity/Vol]54 U/V38-66UyijafoziMercy Health Perrysburg Hospitalerum or plasma aspartate aminotransferase measurement (enzymatic activity/volume)Ordered By: Ajit Pettit on 89-69-7850BJN [Catalytic activity/Vol]22 U/Y75-41ShblpsaoxMercy Health Perrysburg Hospitalerum or plasma calcium measurement (mass/volume)Ordered By: Ajit Pettit on 58-50-5402Ybcrbes [Mass/Vol]9.4 mg/dL8.2-10.2FCherrington Hospitalerum or plasma chloride measurement (moles/volume) Ordered By: Ajit Pettit on 98-32-6961Glgjutbv [Moles/Vol]102 mmol/L95-114 [facility] Hospitalerum or plasma glucose measurement (mass/volume)Ordered By: Ajit Pettit on 22-01-5382Einjprb [Mass/Vol]115 mg/dL 70-100[facility] CenterComment on above:ADA recommended reference range Random Glucose Reference Range is dependent on time and content of last meal. Glucose of more than 200 mg/dL in a nonstressed, ambulatory subject supports the diagnosis of Diabetes Mellitus.ADA recommended reference rangeRandom Glucose Reference Range is dependent on time and content of last meal. Glucose of more than 200 mg/dL in a nonstressed, ambulatory subject supports the diagnosisof Diabetes Mellitus.Serum or plasma high density lipoprotein (HDL) cholesterol measurementOrdered By: Ajit Pettit on 08-11-9386Smdsssaubav in HDL [Mass/Vol]57 mg/sG41-18LmetyciaqAshtabula County Medical CenterComment on above:HDL CHOL ATP-III CLASSIFICATION Cardiovascular Risk HDL > or equal to 60 mg/dL LOW HDL < 40 mg/dL HIGHHDL CHOL ATP-III CLASSIFICATION Cardiovascular RiskHDL > or equal to 60 mg/dL LOWHDL < 40 mg/dL HIGHSerum or plasma potassium measurement (moles/volume)Ordered By: Ajit Pettit on 30-43-0470Yalzyastp [Moles/Vol]4.8 mmol/L3.5-5.1FCherrington Hospitalerum or plasma sodium measurement (moles/volume)Ordered By: Ajit Pettit on 08-44-4194Ekdnkr [Moles/Vol]135 mmol/U750-023XqrjyypcjMercy Health Perrysburg Hospitalerum or plasma total bilirubin measurement (mass/volume)Ordered By: Ajit Pettit on 97-00-5596Xlyltlscf [Mass/Vol]0.2 mg/dL0.3-1.2FCherrington Hospitalerum or plasma total carbon dioxide measurement (moles/volume)Ordered By: Ajit Pettit on 04-30-2022 CO2 [Moles/Vol]24.2 mmol/L22.0-30.0[facility] Hospitalerum or plasma total cholesterol/high density lipoprotein (HDL) cholesterol mass rat Ordered By: Ajit Pettit on 77-76-2516Fcoixlquead.total/Cholesterol in HDL [Mass ratio]4.6 {ratio}<5.0[facility] Hospitalerum or plasma urea nitrogen measurement (mass/volume)Ordered By: Ajit Millan on 96-11-9056Pnra nitrogen [Mass/Vol]12 mg/dL9-23[facility] CenterTSH DL <= 0.005 mIU/L QnOrdered By: Ajit Pettit on 04-49-3203NKR Qn2.89 m[IU]/L0.45-5.33 [facility] CenterTriglyceride [Mass/volume] in Serum or Plasma Ordered By: Ajit Millan on 09-38-4593Mftknxjoghoh [Mass/Vol]344 mg/xJ33-616 [facility] CenterComment on above:TRIG ATP III CLASSIFICATION TRIG less than 150 mg/dL Normal TRIG 150-199 mg/dL Borderline high TRIG 200-500 mg/dL High TRIG greater than 500 mg/dL Very high Standard traceable to the Center for Disease Conrtrol and Prevention (CDC) test method.TRIG ATP III CLASSIFICATIONTRIG less than 150 mg/dL NormalTRIG 150-199 mg/dL Borderline highTRIG 200-500 mg/dL High TRIG greater than 500 mg/dL Very highStandard traceable to the Center for Disease Conrtrol and Prevention (CDC) test method.Basophils Auto (Bld) [#/Vol]on 37-53-2301Fvotundgh (Bld) [#/Vol]0.1 10*3/uL0.0-0.2FOur Lady of [facility] CtrBasophils/100 WBC Auto (Bld)on 66-96-8990Kylqnwcvw/100 WBC (Bld)1.0 %[facility] CtrBlood hemoglobin measurement (mass/volume)on 23-98-3916Rvygondhuc (Bld) [Mass/Vol]13.0 g/dL11.8-15.4FOur Lady of [facility] CtrBlood leukocytes automated count (number/volume)on 31-05-6003ILN (Bld) [#/Vol]13.2 10*3/uL4.5-11.0[facility] HealthBody fluid albumin measurement (mass/volume)on 01-21-2021 Albumin (Body fld) [Mass/Vol]3.7 g/dL3.2-5.5FAdams County Regional [facility] Center Creatinine and Glomerular filtration rate.predicted panel (S/P/Bld)on 01-21-2021 Creatinine [Mass/Vol]0.67 mg/dL0.44-1.03[facility] Eosinophils Auto (Bld) [#/Vol]on 81-75-7668Ccrsptjtchb (Bld) [#/Vol]0.1 10*3/uL 0.0-0.45[facility] CtrEosinophils/100 WBC Auto (Bld)on 08-71-8199Dgwszvxccuc/100 WBC (Bld)0.8 %[facility] Erythrocyte distribution width Auto (RBC) [Ratio]on 08-12-6853Xdxwhpwdswk distribution width (RBC) [Ratio]13.1 %11.9-15.3FAdams County Regional Medical Center Estimated glomerular filtration rate (GFR) non- Americanon 01-21-2021 GFR/1.73 sq M.predicted among non-blacks MDRD (S/P/Bld) [Vol rate/Area]> 60 mL/MinParkview HealthGlobulin Calc (S) [Mass/Vol]on 01-21-2021 Globulin (S) [Mass/Vol]2.7 g/dLParkview HealthHematocrit Auto (Bld) [Volume fraction]on 51-90-1514Hhlemgyikm (Bld) [Volume fraction]38.1 % 34.0-46.4FOur [facility] of [facility] CtrLaboratory - Chemistry and Chemistry - challengeon 64-25-2223Dqffnfaww (Vitamin B12) [Mass/Vol]341 pg/jG566-205 [facility] CtrLaboratory - Hematology and Cell countson 17-18-2875Hjuangxmt RBC/100 WBC (Bld) [Ratio]0.2 %0-0.5FOur Lady of Mercy [facility] CtrLymphocytes Auto (Bld) [#/Vol]on 43-49-8249Fuuopgaiqoh (Bld) [#/Vol] 3.9 10*3/uL1.00-4.8[facility] CtrLymphocytes/100 WBC Auto (Bld) on 34-58-8944Qcuvyamshzv/100 WBC (Bld)29.4 %[facility] HospitalH Auto (RBC) [Entitic mass]on 03-95-2167HUS (RBC) [Entitic mass]30.6 pg24.7-34.3 [facility] HospitalHC Auto (RBC) [Mass/Vol]on 57-24-3524EOVN (RBC) [Mass/Vol]34.1 g/dL32.0-35.0[facility] HospitalV Auto (RBC) [Entitic vol]on 65-21-9311EMV (RBC) [Entitic vol]89.6 uQ75-268EktdpaxnrNorwalk Memorial Hospital CtrMonocytes Auto (Bld) [#/Vol]on 02-82-9413Jbahpwcdd (Bld) [#/Vol]1.1 10*3/uL0.0-0.8[facility] CtrMonocytes/100 WBC Auto (Bld)on 82-79-0991Nxnjvixan/100 WBC (Bld)8.6 %[facility] CtrNeutrophils Auto (Bld) [#/Vol]on 60-57-4989Ypwmslbuyzj (Bld) [#/Vol]8.0 10*3/uL1.8-7.7 [facility] CtrNeutrophils/100 WBC Auto (Bld)on 01-21-2021 Neutrophils/100 WBC (Bld)60.2 %[facility] CtrNo Panel Informationon 71-10-452046602878-Pwtykci Vitamin D Total25.5 ng/uT19-774XaxdftrbhNorwalk Memorial Hospital CtrComment on above:VITAMIN D STATUS 25(OH)VITAMIN D RANGE (ng/mL) Deficient <20 Insufficient 20 to <96Shedzpdykv48 to 100Reference: Jovanni ENCINAS,Dominique ARORA, Gillian GRAHAM, et al. Evaluation,treatment, and prevention of vitamin D deficiency; an Endocrine Society clinical practice guideline. JCEM. 2010; 96(7):1911-30.Estimated GFR ()> 60 mL/Min [facility] CtrComment on above:GFR estimated reference range: According to KDOQI guidelines, <60 ml/min/1.73m2 is sufficient todiagnose a patient with chronic kidney disease.Pharmacy Creatinine Clearance (ChemN/A [facility] CtrValproic Acid (Depakene) Level74.3 ug/mL50.0-100.0 [facility] CtrComment on above:Last dose: -Platelet mean volume Auto (Bld) [Entitic vol]on 85-33-9859Enggdgjk mean volume (Bld) [Entitic vol]9.1 fL6.3-10.7FOur Lady of Mercy [facility] CtrPlatelets Auto (Bld) [#/Vol]on 31-43-4476Ohknkwiju (Bld) [#/Vol]261 10*3/mQ330-069NuwhdsludNorwalk Memorial Hospital CtrProtein [Mass/volume] in Serum or Plasmaon 18-57-2371Xvxgudw [Mass/Vol]6.4 g/dL6.1-7.9[facility] CtrRBC Auto (Bld) [#/Vol]on 39-84-1228IRN (Bld) [#/Vol]4.25 10*6/uL3.60-5.00[facility] CtrSerum or plasma alanine aminotransferase measurement without P-5'-P (enzymatic activion 61-13-7001GAF No additional P-5'-P [Catalytic activity/Vol]14 U/H30-98FomrjwfrvNorwalk Memorial Hospital CtrSerum or plasma albumin/globulin mass ratioon 01-21-2021 Albumin/Globulin [Mass ratio]1.4 {ratio}[facility] CtrSerum or plasma alkaline phosphatase measurement (enzymatic activity/volume)on 01-21-2021 ALP [Catalytic activity/Vol]50 U/I78-15ZqeoiflfnNorwalk Memorial Hospital CtrSerum or plasma aspartate aminotransferase measurement (enzymatic activity/volume)on 61-39-0224JNK [Catalytic activity/Vol]17 U/X85-99KauiloacpNorwalk Memorial Hospital Ctr Serum or plasma calcium measurement (mass/volume)on 55-59-5035Roheing [Mass/Vol] 9.5 mg/dL8.2-10.2FOur Lady of Mer[facility] CtrSerum or plasma chloride measurement (moles/volume)on 66-45-5975Uwgfbeee [Moles/Vol]96 mmol/L95-114 [facility] CtrSerum or plasma glucose measurement (mass/volume) on 78-50-1682Adlhxri [Mass/Vol]117 mg/nR21-643LhaoyheqnNorwalk Memorial Hospital Ctr Comment on above:ADA recommended reference rangeRandom Glucose Reference Range is dependent on time and content of last meal. Glucose of more than 200 mg/dL in a nonstressed, ambulatory subject supports the diagnosisof Diabetes Mellitus. Serum or plasma potassium measurement (moles/volume)on 74-47-7787Tailyfhgb [Moles/Vol]4.3 mmol/L3.5-5.1FOur Lady of Mer[facility] CtrSerum or plasma sodium measurement (moles/volume)on 42-15-1718Imzhpv [Moles/Vol]132 mmol/F651-798 [facility] CtrSerum or plasma total bilirubin measurement (mass/volume)on 26-03-1220Xzjphiato [Mass/Vol]0.3 mg/dL0.3-1.2FOur Lady of Mer[facility] CtrSerum or plasma total carbon dioxide measurement (moles/volume)on 74-09-7723EH8 [Moles/Vol]23.6 mmol/L22.0-30.0[facility] CtrSerum or plasma urea nitrogen measurement (mass/volume)on 94-06-1768Ydlr nitrogen [Mass/Vol]13 mg/dL9-23[facility] CtrAlbumin [Mass/volume] in Serum or Plasmaon 33-71-0854Ixkwefo [Mass/Vol]4.4 g/dL3.2-5.5FOur Lady of Mer[facility] CtrAutomated basophil %on 88-35-7056Ejclrkqoy/100 WBC (Bld)0.7 % [facility] CtrAutomated basophil counton 51-37-3825Ugqflwzuf (Bld) [#/Vol]0.1 10*3/uL0.0-0.2FOur Lady of Mercy [facility] CtrAutomated blood lymphocyte count (number/volume)on 07-88-2941Shxjqhwahol (Bld) [#/Vol]3.5 10*3/uL1.00-4.8[facility] CtrAutomated blood lymphocyte count as percentage of total leukocyteson 15-53-4668Upevduukrdr/100 WBC (Bld)26.0 % [facility] CtrAutomated blood monocyte counton 11-05-2020 Monocytes (Bld) [#/Vol]1.2 10*3/uL0.0-0.8[facility] CtrAutomated blood platelet count (count/volume)on 78-61-2838Sehbhqhkx (Bld) [#/Vol]317 10*3/eL339-995QyhhdculsNorwalk Memorial Hospital CtrAutomated blood platelet mean volume measurementon 94-40-7436Kvgymomx mean volume (Bld) [Entitic vol]8.2 fL6.3-10.7 [facility] CtrAutomated eosinophil %on 91-55-9147Jkpuillioxy/100 WBC (Bld)0.5 %[facility] CtrAutomated eosinophil counton 79-94-5465Xgdqttoxlgw (Bld) [#/Vol]0.1 10*3/uL0.0-0.45[facility] CtrAutomated erythrocyte distribution width ratioon 50-84-1495Mkepkwsmfsd distribution width (RBC) [Ratio]13.0 %11.9-15.3FOur Lady of [facility]tr Automated erythrocyte mean corpuscular hemoglobin (mass per erythrocyte)on 74-73-7520GFG (RBC) [Entitic mass]30.2 pg24.7-34.3FOur Lady of Mer[facility] Ctr Automated erythrocyte mean corpuscular hemoglobin concentration measurement (mass/volon 59-74-5251PRAY (RBC) [Mass/Vol]33.9 g/dL32.0-35.0[facility] CtrAutomated erythrocyte mean corpuscular volumeon 97-47-7660BHT (RBC) [Entitic vol]89.1 cZ33-021UnpmcfwjgNorwalk Memorial Hospital CtrAutomated monocyte %on 47-86-9511Luhfrlnse/100 WBC (Bld)8.8 %[facility] CtrAutomated neutrophil %on 34-42-2524Bzwazsnvjsx/100 WBC (Bld)64.0 %[facility] CtrBlood erythrocytes automated count (number/volume)on 61-32-9312QRO (Bld) [#/Vol]4.92 10*6/uL3.60-5.00[facility] CtrBlood hemoglobin measurement (mass/volume)on 38-80-8053Jzisdqsyro (Bld) [Mass/Vol]14.9 g/dL 11.8-15.4FOur Lady of Mer[facility] CtrBlood leukocytes automated count (number/volume)on 87-44-5550GOJ (Bld) [#/Vol]13.4 10*3/uL4.5-11.0[facility] CtrBlood neutrophil count by automated method (number/volume)on 96-29-5270Xjpjrlputdw (Bld) [#/Vol]8.6 10*3/uL1.8-7.7FOur Lady of Mer[facility] CtrEstimated glomerular filtration rate (GFR) non- Americanon 11-05-2020 GFR/1.73 sq M predicted among non-blacks MDRD (S/P/Bld) [Vol rate/Area] mL/min/{1.73_m2}[facility] CtrHematocrit [Volume Fraction] of Blood by Automated counton 86-19-7295Tvsifhnnoc (Bld) [Volume fraction]43.8 % 34.0-46.4FOur Lady of Mer[facility] CtrOtheron 64-86-3266XKM/1.73 sq M.predicted MDRD (S/P/Bld) [Vol rate/Area]mL/min/{1.73_m2}[facility] Comment on above:GFR estimated reference range: According to KDOQI guidelines, <60 ml/min/1.73m2 is sufficient todiagnose a patient with chronic kidney disease.Nucleated RBC/100 WBC (Bld) [Ratio]0.2 %0-0.5FOur Lady of Mercy [facility] CtrPharmacy Creatinine Clearance (ChemN/AFOur Lady of Mer[facility] CtrProtein [Mass/volume] in Serum or Plasmaon 27-97-4263Spfzuxk [Mass/Vol]7.2 g/dL6.1-7.9 [facility] CtrSerum globulin measurement by calculation (mass/volume)on 71-18-0503Iupmvxrj (S) [Mass/Vol]2.8 g/dLNorwalk Memorial Hospital CtrSerum glutamate decarboxylase 65 antibody assay (units/volume)on 81-86-1148Ozwnxezab decarboxylase 65 Ab Qn (S)<5.0 U/mLNorwalk Memorial Hospital CtrComment on above:Performed at: [facility] [address] [id number] Director: Ana Lee MD, Phone: [phone] nuclear antibody titeron 86-80-3274Vbbrnmg Ab (S) [Titer] NegativeNorwalk Memorial Hospital CtrComment on above:Negative <1:80 Borderline 1:80 Positive >1:80Performed at: [facility] [place] [id number] Director: Daniel Wen PhD, Phone: [phone] Ab (S) [Titer]NegativeNorwalk Memorial Hospital CtrComment on above:Negative <1:80 Borderline 1:80 Positive >1:80Performed at: [employer] [id number] Director: Daniel Wen PhD, Phone: [phone] or plasma alanine aminotransferase measurement without P-5'-P (enzymatic activi on 66-62-0233NFU No additional P-5'-P [Catalytic activity/Vol]22 U/L10-60 [facility] CtrSerum or plasma albumin/globulin mass ratioon 47-76-6954Yxoypir/Globulin [Mass ratio]1.6 {ratio}[facility] Serum or plasma alkaline phosphatase measurement (enzymatic activity/volume)on 02-41-2588QWX [Catalytic activity/Vol]60 U/N57-44UuzaeeeovNorwalk Memorial Hospital Ctr Serum or plasma aspartate aminotransferase measurement (enzymatic activity/volume)on 69-52-0971AGK [Catalytic activity/Vol]23 U/J79-67QfiicwxiaNorwalk Memorial Hospital CtrSerum or plasma calcium measurement (mass/volume)on 52-77-9236Isqirqs [Mass/Vol]9.6 mg/dL8.2-10.2FOur Lady of Mercy [facility] CtrSerum or plasma chloride measurement (moles/volume)on 15-70-7528Mynonwcp [Moles/Vol] 93 mmol/Z84-646PxnhilgluNorwalk Memorial Hospital CtrSerum or plasma creatinine measurement with calculation of estimated glomerular filtron 11-05-2020 Creatinine [Mass/Vol]0.62 mg/dL0.44-1.03[facility] CtrSerum or plasma glucose measurement (mass/volume)on 84-50-4808Nlnmejn [Mass/Vol]82 mg/dL 70-100[facility] CtrComment on above:ADA recommended reference rangeRandom Glucose Reference Range is dependent on time and content of last meal. Glucose of more than 200 mg/dL in a nonstressed, ambulatory subject supports the diagnosisof Diabetes Mellitus.Serum or plasma potassium measurement (moles/volume)on 61-08-2267Avrwgskty [Moles/Vol]4.3 mmol/L3.5-5.1FOur Lady of Mercy [facility] CtrSerum or plasma sodium measurement (moles/volume)on 27-12-1045Tdpuzg [Moles/Vol]128 mmol/G985-316QjmlrfbztNorwalk Memorial Hospital CtrSerum or plasma total bilirubin measurement (mass/volume)on 80-41-5251Rpybuilqm [Mass/Vol]0.6 mg/dL0.3-1.2FOur Lady of Mercy [facility] CtrSerum or plasma total carbon dioxide measurement (moles/volume)on 98-32-5562YI1 [Moles/Vol]22.8 mmol/L 22.0-30.0[facility] CtrSerum or plasma urea nitrogen measurement (mass/volume)on 16-82-5714Ovfi nitrogen [Mass/Vol]10 mg/dL9-23[facility] CtrAutomated basophil %on 13-51-7337Tysiisrqe/100 WBC (Bld)0.6 %[facility] CtrAutomated basophil counton 54-89-2664Vqpavirix (Bld) [#/Vol]0.1 10*3/uL0.0-0.2FOur Lady of Mercy Hospital [facility] CtrAutomated blood lymphocyte count (number/volume)on 77-33-8268Llqjuarsent (Bld) [#/Vol]2.8 10*3/uL1.00-4.8[facility] HealthAutomated blood lymphocyte count as percentage of total leukocyteson 46-89-3759Yjstinazlid/100 WBC (Bld)23.6 % [facility] CtrAutomated blood monocyte counton 10-22-2020 Monocytes (Bld) [#/Vol]1.0 10*3/uL0.0-0.8[facility] CtrAutomated blood platelet count (count/volume)on 27-00-6649Asockgafo (Bld) [#/Vol]292 10*3/pK256-713EcbxiiujlNorwalk Memorial Hospital CtrAutomated blood platelet mean volume measurementon 26-79-7239Yntcnqwt mean volume (Bld) [Entitic vol]9.4 fL6.3-10.7 [facility] CtrAutomated eosinophil %on 36-49-0018Oqtdgpmbpzb/100 WBC (Bld)0.5 %[facility] CtrAutomated eosinophil counton 61-56-6342Oseohxmilqc (Bld) [#/Vol]0.1 10*3/uL0.0-0.45[facility] CtrAutomated erythrocyte distribution width ratioon 01-74-9852Zijamydloqr distribution width (RBC) [Ratio]12.8 %11.9-15.3FOur Lady of [facility]tr Automated erythrocyte mean corpuscular hemoglobin (mass per erythrocyte)on 02-42-9245YUM (RBC) [Entitic mass]29.5 pg24.7-34.3FOur Lady of Mercy [facility] Ctr Automated erythrocyte mean corpuscular hemoglobin concentration measurement (mass/volon 63-43-1929FIGE (RBC) [Mass/Vol]32.9 g/dL32.0-35.0[facility] CtrAutomated erythrocyte mean corpuscular volumeon 24-83-7588JQP (RBC) [Entitic vol]89.6 uT12-535SbemzoglwNorwalk Memorial Hospital CtrAutomated monocyte %on 03-81-1688Fvdntxypx/100 WBC (Bld)8.7 %[facility] CtrAutomated neutrophil %on 36-66-9855Mmgbpyzskob/100 WBC (Bld)66.6 %[facility] CtrBlood erythrocytes automated count (number/volume)on 89-98-3159CNL (Bld) [#/Vol]4.90 10*6/uL3.60-5.00[facility] CtrBlood hemoglobin measurement (mass/volume)on 66-79-1990Zejnbddezi (Bld) [Mass/Vol]14.5 g/dL 11.8-15.4FOur Lady of Mercy [facility] CtrBlood leukocytes automated count (number/volume)on 92-91-8285XFK (Bld) [#/Vol]12.1 10*3/uL3.8-11.6FOur Lady of Mer[facility] CtrBlood neutrophil count by automated method (number/volume)on 95-20-7158Zweoywtcaxv (Bld) [#/Vol]8.0 10*3/uL1.8-7.7FOur Lady of Mer[facility] CtrBody fluid albumin measurement (mass/volume)on 85-28-1694Rcffqbi (Body fld) [Mass/Vol]4.2 g/dL3.2-5.5FOur Lady of Mercy [facility] CtrEstimated glomerular filtration rate (GFR) non- Americanon 16-62-9251UMF/1.73 sq M predicted among non-blacks MDRD (S/P/Bld) [Vol rate/Area]mL/min/{1.73_m2}[facility] CtrHematocrit [Volume Fraction] of Blood by Automated counton 41-82-7353Oxkgtvnubw (Bld) [Volume fraction]43.9 %34.0-46.4FOur Lady of Mercy [facility] CtrHematologyon 46-20-9780Qqozjojtt (Bld) [#/Vol]NormalNormalNorwalk Memorial Hospital CtrOtheron 26-58-858671612500-Yiiampx Vitamin D Total13.3 ng/vS28-633 [facility] CtrComment on above:VITAMIN D STATUS 25(OH)VITAMIN D RANGE (ng/mL) Deficient <20 Insufficient 20 to <07Lxelrhlung50 to 100Reference: Jovanni MF,Dominique NC, Gillian GRAHAM, et al. Evaluation,treatment, and prev ention of vitamin D deficiency; an Endocrine Society clinical practice guideline. JCEM. 2010; 96(7):1911-30.Cobalamin (Vitamin B12) [Mass/Vol]438 pg/aF624-483GmhuetegsNorwalk Memorial Hospital CtrGFR/1.73 sq M.predicted MDRD (S/P/Bld) [Vol rate/Area]mL/min/{1.73_m2}[facility] CtrComment on above: GFR estimated reference range: According to KDOQI guidelines, <60 ml/min/1.73m2 is sufficient todiagnose a patient with chronic kidney disease.Nucleated RBC/100 WBC (Bld) [Ratio]0.0 %0-0.5FOur Lady of Mercy [facility] CtrPharmacy Creatinine Clearance (ChemN/AFOur Lady of Mercy [facility] CtrPlatelet Morphology Comment NormalNormalNorwalk Memorial Hospital CtrValproic Acid (Depakene) Ffasm785.9 ug/mL50.0-100.0[facility] CtrComment on above:Last dose: - Protein [Mass/volume] in Serum or Plasmaon 50-02-9825Mqlfpor [Mass/Vol]7.1 g/dL 6.1-7.9[facility] CtrRBC morphologyon 67-45-7538DME morphology finding Nom (Bld)NormalNorwalk Memorial Hospital CtrSerum globulin measurement by calculation (mass/volume)on 73-61-3739Pzfhgien (S) [Mass/Vol]2.9 g/dL [facility] CtrSerum or plasma alanine aminotransferase measurement without P-5'-P (enzymatic activion 94-79-8637PUT No additional P-5'-P [Catalytic activity/Vol]13 U/H32-97UqatbuytmNorwalk Memorial Hospital CtrSerum or plasma albumin/globulin mass ratioon 13-93-5088Azkhjym/Globulin [Mass ratio]1.4 {ratio}[facility] CtrSerum or plasma alkaline phosphatase measurement (enzymatic activity/volume)on 50-62-2844QFJ [Catalytic activity/Vol] 53 U/M34-04PuubnbgxzNorwalk Memorial Hospital CtrSerum or plasma aspartate aminotransferase measurement (enzymatic activity/volume)on 44-65-9169PDV [Catalytic activity/Vol]15 U/H21-08JdnnlnkamNorwalk Memorial Hospital CtrSerum or plasma calcium measurement (mass/volume)on 21-37-2441Pvzdkrm [Mass/Vol]9.6 mg/dL 8.2-10.2FOur Lady of Mercy [facility] CtrSerum or plasma chloride measurement (moles/volume)on 05-15-7300Yznzwpqc [Moles/Vol]96 mmol/M24-663AesgpxvtwNorwalk Memorial Hospital CtrSerum or plasma creatinine measurement with calculation of estimated glomerular filtron 31-59-5816Lkdggcrgae [Mass/Vol]0.54 mg/dL0.44-1.03[facility] CtrSerum or plasma glucose measurement (mass/volume)on 47-76-5564Ywvjiee [Mass/Vol]96 mg/uR12-629CvbmgpvlzNorwalk Memorial Hospital CtrComment on above:ADA recommended reference rangeRandom Glucose Reference Range is dependent on time and content of last meal. Glucose of more than 200 mg/dL in a nonstressed, ambulatory subject supports the diagnosisof Diabetes Mellitus.Serum or plasma potassium measurement (moles/volume)on 88-88-5737Adcvdceiw [Moles/Vol]4.7 mmol/L3.5-5.1FOur Lady of Mercy [facility] CtrSerum or plasma sodium measurement (moles/volume)on 73-10-3534Hfxgyz [Moles/Vol]130 mmol/K634-433 [facility] CtrSerum or plasma total bilirubin measurement (mass/volume)on 15-94-9369Wmmxnptvg [Mass/Vol]0.3 mg/dL0.3-1.2FOur Lady of Mercy [facility] CtrSerum or plasma total carbon dioxide measurement (moles/volume)on 23-93-9688UF3 [Moles/Vol]22.5 mmol/L22.0-30.0[facility] CtrSerum or plasma urea nitrogen measurement (mass/volume)on 45-19-2050Evjh nitrogen [Mass/Vol]5 mg/dL9-23[facility] CtrAutomated basophil %on 63-56-2645Hhhoxbald/100 WBC (Bld)0.7 %[facility] CtrAutomated basophil counton 61-75-5504Nuvcbparj (Bld) [#/Vol]0.1 10*3/uL0.0-0.2FOur Lady of Mercy [facility] CtrAutomated blood lymphocyte count (number/volume)on 23-94-1823Dzbzpobpanw (Bld) [#/Vol]3.3 10*3/uL1.00-4.8[facility] HealthAutomated blood lymphocyte count as percentage of total leukocyteson 13-88-6624Kuqsgndxhxu/100 WBC (Bld)27.3 %[facility] CtrAutom[facility] blood monocyte counton 21-45-6032Fbmwxogrn (Bld) [#/Vol]1.3 10*3/uL0.0-0.8 [facility] CtrAutomated blood platelet count (count/volume)on 26-91-6238Gunsiulku (Bld) [#/Vol]299 10*3/wH512-209WbvfvpunpNorwalk Memorial Hospital CtrAutomated blood platelet mean volume measurementon 19-35-1760Ifgzbdvi mean volume (Bld) [Entitic vol]8.3 fL6.3-10.7FOur [facility] of [facility] CtrAutomated eosinophil %on 66-99-0268Ivtpodacenx/100 WBC (Bld)0.7 %[facility] CtrAutomated eosinophil counton 89-15-7079Gtfckxsroxh (Bld) [#/Vol]0.1 10*3/uL0.0-0.45[place] [facility]trAutomated erythrocyte distribution width ratioon 47-75-1414Zbqpodkjdpf distribution width (RBC) [Ratio]12.8 % 11.9-15.3FOur [facility] of [facility] CtrAutomated erythrocyte mean corpuscular hemoglobin (mass per erythrocyte)on 94-23-0770INJ (RBC) [Entitic mass]29.8 pg 24.7-34.3FOur [facility] of [facility] CtrAutomated erythrocyte mean corpuscular hemoglobin concentration measurement (mass/volon 85-71-3969IIFR (RBC) [Mass/Vol] 33.4 g/dL32.0-35.0[facility] CtrAutomated erythrocyte mean corpuscular volumeon 96-00-8425TFW (RBC) [Entitic vol]89.3 oP06-137YqubkdlggNorwalk Memorial Hospital CtrAutomated monocyte %on 30-29-6906Zfmczmlyo/100 WBC (Bld)10.8 %[facility] CtrAutomated neutrophil %on 09-23-2020 Neutrophils/100 WBC (Bld)60.5 %[facility] CtrBlood erythrocytes automated count (number/volume)on 78-04-1885MGM (Bld) [#/Vol]4.72 10*6/uL 3.60-5.00[facility] CtrBlood hemoglobin measurement (mass/volume)on 18-09-0118Pipnfagngm (Bld) [Mass/Vol]14.1 g/dL11.8-15.4FOur [facility] of [facility] CtrBlood leukocytes automated count (number/volume)on 29-21-4461IUD (Bld) [#/Vol]11.9 10*3/uL3.8-11.6FOur [facility] of [facility] Ctr Blood neutrophil count by automated method (number/volume)on 09-23-2020 Neutrophils (Bld) [#/Vol]7.2 10*3/uL1.8-7.7FOur [facility] of [facility] CtrBody fluid albumin measurement (mass/volume)on 68-04-1669Flzxwvk (Body fld) [Mass/Vol]3.9 g/dL3.2-5.5FOur [facility] of [facility] CtrEstimated glomerular filtration rate (GFR) non- Americanon 51-56-8438HIU/1.73 sq M predicted among non-blacks MDRD (S/P/Bld) [Vol rate/Area]mL/min/{1.73_m2}[facility] CtrHematocrit [Volume Fraction] of Blood by Automated counton 36-43-2921Gpfnzntewk (Bld) [Volume fraction]42.1 %34.0-46.4FOur Lady of [facility] CtrOtheron 83-80-470960365368-Hlnpoei Vitamin D Total17.0 ng/yF20-774KjfbjwxnfNorwalk Memorial Hospital CtrComment on above:VITAMIN D STATUS 25(OH)VITAMIN D RANGE (ng/mL) Deficient <20 Insufficient 20 to <60Fjxffsospm77 to 100Reference: Jovanni MF,Dominique ARORA, Gillian GRAHAM, et al. Evaluation,treatment, and prevention of vitamin D deficiency; an Endocrine Society clinical practice guideline. JCEM. 2010; 96(7):1911-30.GFR/1.73 sq M.predicted MDRD (S/P/Bld) [Vol rate/Area] mL/min/{1.73_m2}[facility] CtrComment on above:GFR estimated reference range: According to KDOQI guidelines, <60 ml/min/1.73m2 is sufficient todiagnose a patient with chronic kidney disease.Nucleated RBC/100 WBC (Bld) [Ratio]0.1 %0-0.5FOur [facility] of [facility] CtrPharmacy Creatinine Clearance (ChemN/AFOur Lady of [facility] CtrValproic Acid (Depakene) Level45.9 ug/mL 50.0-100.0[facility] CtrComment on above:Last dose: -Protein [Mass/volume] in Serum or Plasmaon 67-90-2866Vgygqlg [Mass/Vol]6.7 g/dL6.1-7.9 [facility] CtrSerum globulin measurement by calculation (mass/volume)on 86-26-1455Xixersrh (S) [Mass/Vol]2.8 g/dLNorwalk Memorial Hospital CtrSerum or plasma alanine aminotransferase measurement without P-5'-P (enzymatic activion 14-70-5964HBQ No additional P-5'-P [Catalytic activity/Vol] 15 U/V46-72GhpvcqbsiNorwalk Memorial Hospital CtrSerum or plasma albumin/globulin mass ratioon 90-77-0976Ymsysme/Globulin [Mass ratio]1.4 {ratio}[facility] CtrSerum or plasma alkaline phosphatase measurement (enzymatic activity/volume)on 67-88-0094ZTC [Catalytic activity/Vol]52 U/U27-27AnaiwwpbaNorwalk Memorial Hospital CtrSerum or plasma aspartate aminotransferase measurement (enzymatic activity/volume)on 75-83-1465BCH [Catalytic activity/Vol]16 U/L10-42 [facility] CtrSerum or plasma calcium measurement (mass/volume) on 53-04-0605Xekprvd [Mass/Vol]9.2 mg/dL8.2-10.2FAd[facility] Serum or plasma chloride measurement (moles/volume)on 28-56-2465Rqjiqrbz [Moles/Vol]102 mmol/T20-077IrwajipbbNorwalk Memorial Hospital CtrSerum or plasma creatinine measurement with calculation of estimated glomerular filtron 13-59-2826Quwdwkmhio [Mass/Vol]0.67 mg/dL0.44-1.03[facility] Serum or plasma glucose measurement (mass/volume)on 49-52-8746Jaesvlb [Mass/Vol] 122 mg/zX63-327VtusysvfkNorwalk Memorial Hospital CtrComment on above:ADA recommended reference rangeRandom Glucose Reference Range is dependent on time and content of last meal. Glucose of more than 200 mg/dL in a nonstressed, ambulatory subject supports the diagnosisof Diabetes Mellitus.Serum or plasma potassium measurement (moles/volume)on 46-34-4434Kagzkyomf [Moles/Vol]4.8 mmol/L3.5-5.1 [facility] CtrSerum or plasma sodium measurement (moles/volume) on 81-92-0563Gmdvww [Moles/Vol]136 mmol/B634-788IcruksmdwNorwalk Memorial Hospital Ctr Serum or plasma total bilirubin measurement (mass/volume)on 78-94-4887Cfcwfsmfk [Mass/Vol]0.2 mg/dL0.3-1.2FOur Lady of Mercy Hospital [facility] CtrSerum or plasma total carbon dioxide measurement (moles/volume)on 65-61-3635VE1 [Moles/Vol]23.0 mmol/L 22.0-30.0[facility] CtrSerum or plasma urea nitrogen measurement (mass/volume)on 14-66-8096Qkfj nitrogen [Mass/Vol]5 mg/dL9-23[facility] CtrLab - Other Lab Resultson 93-79-0860Iql - Other Lab Results [id number]#1.00OTAdena Regional [facility] Coding Summaryon 63-54-5644Qnhwqr SummaryCODING DATE: 06/27/2019 [facility] STATUS: Home PAYOR: Medicaid HMO ADMIT [...] Karuna Piña Revised Date Saved: 06/27/2019 12:43 pmNSalem City HospitalProvider Orderson 67-59-7418Twcnqrfq [id number]#1.00OTPike Community HospitalProvider Orders [id number]#1.00OTGTIFFNoMagruder Memorial Hospital.Auto Diff 1on 86-91-0639Ldav [place] %9 %Normal1-12[facility] HospitalComment on above: Performed By: #### [id number], [id number] #### [facility] (DEFAULT) [address] [place] [address] 99443Mbsu Abs#0.0 y87Bwvdng8.0-0.2Mregional medical center HospitalComment on above:Performed By: #### [id number], [id number] #### [facility] (DEFAULT) [address] [place] [address] 78658Jyaifyacp/100 WBC (Bld)0.3 %Normal0.2-2.0[facility] Comment on above:Performed By: #### [id number], [id number] #### [facility] (DEFAULT) [address] [place] [address] 52503Tnl Abs#0.0 m15Rrgaku3.0-0.4[facility] HospitalComment on above:Performed By: #### [id number], [id number] #### [facility] (DEFAULT) [address] [place] [address] 15237Kjkrnujcmfb/100 WBC (Bld)0.4 %Low0.9-4.0[facility] Comment on above:Performed By: #### [id number], [id number] #### [facility] (DEFAULT) [address] [place] [address] 08224Jgabqrxxytg (Bld) [#/Vol]3.7 t47Urko9.3-2.9[facility] HospitalComment on above:Performed By: #### [id number], [id number] #### [facility] (DEFAULT) [address] [place] [address] 32224Rkmsqhetiua/100 WBC (Bld)29 %Enhzhg28-15Almdkkwj Hospital Comment on above:Performed By: #### [id number], [id number] #### [facility] (DEFAULT) [address] [place] [address] 76826Hdbh Abs#1.2 p20Jelm4.0-0.8[facility] HospitalComment on above:Performed By: #### [id number], [id number] #### [facility] (DEFAULT) [address] [place] [address] 30210Jmdi Abs#7.7 i52Cdxxuh0.5-9.2Mregional medical center HospitalComment on above:Performed By: #### [id number], [id number] #### [facility] (DEFAULT) [address] [place] [address] 77216Wcgymrtkamr/100 WBC (Bld)61 %Oywyiv53-67Fubxqxiv Hospital Comment on above:Performed By: #### [id number], [id number] #### [facility] (DEFAULT) [address] [place] [address] 82920GXW w/ Auto Diffon 88-97-2844Ktyrtmkctgl distribution width (RBC) [Ratio]14.0 %Kmkema17.5-15.0Uk HealthcareComment on above: Performed By: #### [id number], [id number] #### [facility] (DEFAULT) [address] [place] [address] 06426Lxytykzruy (Bld) [Volume fraction]44.8 %High33.7-40.4 [facility] HealthcareComment on above:Performed By: #### [id number], [id number] #### [facility] (DEFAULT) [address] [place] [address] 56337Scqvuarjkn (Bld) [Mass/Vol]15.1 g/fSAiiuhy15.3-15.9 [facility] HealthcareComment on above:Performed By: #### [id number], [id number] #### [facility] (DEFAULT) [address] [place] [address] 68716Pcy Diff?AutoNormalSt. [facility]S Hospital HospitalComment on above: Performed By: #### [id number], [id number] #### [facility] (DEFAULT) [address] [place] [address] 78295OET (RBC) [Entitic mass]30 zlBtkadt47-34Kjdmoyan Hospital Comment on above:Performed By: #### [id number], [id number] #### [facility] (DEFAULT) [address] [place] [address] 93891DFYD (RBC) [Mass/Vol]34 g/aEOnqfmm23-47Kqxnhnau Hospital Comment on above:Performed By: #### [id number], [id number] #### [facility] (DEFAULT) [address] [place] [address] 38002VVJ (RBC) [Entitic vol]89 zNHohkud76-376Apecwfpx Hospital Comment on above:Performed By: #### [id number], [id number] #### [facility] (DEFAULT) [address] [place] [address] 05599Onojfsbo mean volume (Bld) [Entitic vol]9.5 fLNormal 6.3-10.2MRegency Hospital Cleveland EastComment on above:Performed By: #### [id number], [id number] #### [facility] (DEFAULT) [address] [place] [address] 96895Aapagmdsr (Bld) [#/Vol]301 z24Odukcy759-081Sqcdbmje HospitalComment on above:Performed By: #### [id number], [id number] #### [facility] (DEFAULT) [address] [place] [address] 77162XDM (Bld) [#/Vol]5.04 r69Furrji3.70-5.30[facility] Comment on above:Performed By: #### [id number], [id number] #### [facility] (DEFAULT) [address] [place] [address] 18025LFH (Bld) [#/Vol]12.6 r96Ixkcmxsq HospitalComment on above:Performed By: #### [id number], [id number] #### [facility] (DEFAULT) [address] [place] [address] 39688Amm - Other Lab Resultson 26-94-9117Oth - Other Lab [id number]#1.00OTGTIFFNormalMagruder HospitalOutside Recordson 11-02-8148Genthdr Records [id number]#1.00[facility] Outside [id number]#1.00[facility] Vital Signs Date TimeVital SignValuePerforming IbxtwxrtaZmkcsohy15-11-1948 08:36-0400Body umstnl086.37 cmLaura Spasic NITRATE OPERATOR-C Work Phone: [phone])[address]10-29-2025 08:36-0400 Body mass index (BMI) [Ratio]24.4 kg/l0Iuzmr Spasic NITRATE OPERATOR-C Work Phone: [phone] [address]10-29-2025 08:36-0400 Body fioqzo21.58 kgLaura Spasic NITRATE OPERATOR-C Work Phone: 1(216)[address]10-29-2025 08:36-0400 Diastolic blood imzepkcb41 mm[Hg]Ajit Spasic NITRATE OPERATOR-C Work Phone: 1(365)[address]10-29-2025 08:36-0400 Heart rate80 /minLaura Spasic NITRATE OPERATOR-C Work Phone: [phone])87425 [address]10-29-2025 08:36-0400 Respiratory rate16 /minLaura Spasic NITRATE OPERATOR-C Work Phone: [phone])74425 [address]10-29-2025 08:36-0400 SaO2% (BldA) [Mass fraction]98 %Ajit Spasic NITRATE OPERATOR-C Work Phone: 1(357)[address]25 [address]10-29-2025 08:36-0400 Systolic blood hmdwbdyp004 mm[Hg]Ajit Spasic NITRATE OPERATOR-C Work Phone: [phone])24425 [address]10-10-2025 10:25-0400 Diastolic blood mm[Hg]Ajit Spasic NITRATE OPERATOR-C Work Phone: 1(419)[address] [place], [place] 0321610-10-2025 10:25-0400 Heart rate76 /minLaura Spasic NITRATE OPERATOR-C Work Phone: [phone])[address] [place], [place] 0321610-10-2025 10:25-0400 SaO2% (BldA) [Mass fraction]99 %Ajit Spasic NITRATE OPERATOR-C Work Phone: 1(419)[address] [place], [place] 0321610-10-2025 10:25-0400 Systolic blood yitzumky936 mm[Hg]Ajit Spasic NITRATE OPERATOR-C Work Phone: 1(419)[address] [place], [place] 0321610-01-2025 10:10-0400 Diastolic blood nqwehswx09 mm[Hg]Ajit Spasic NITRATE OPERATOR-C Work Phone: 1(419)[address] [place], [place] 0321610-01-2025 10:10-0400 Heart rate80 /minLaura Spasic NITRATE OPERATOR-C Work Phone: 1(419)[address] [place], [place] 0321610-01-2025 10:10-0400 Respiratory rate16 /minLaura Spasic NITRATE OPERATOR-C Work Phone: [phone] [place], [place] 0321610-01-2025 10:10-0400 SaO2% (BldA) [Mass fraction]99 %Ajit Spasic NITRATE OPERATOR-C Work Phone: [phone] [place], [place] 0321610-01-2025 10:10-0400 Systolic blood ikvkxfns361 mm[Hg]Ajit Spasic NITRATE OPERATOR-C Work Phone: [phone] [place], [place] 0321610-01-2025 09:32-0400 Inhaled oxygen flow rate3 L/minLaura Spasic NITRATE OPERATOR-C Work Phone: 1([phone] [place], [place] 0321610-01-2025 08:34-0400 Body uageca018.37 cmLaura Spasic NITRATE OPERATOR-C Work Phone: 1(419)[address] [place], [place] 0321610-01-2025 08:34-0400 Body uxkqez94.94 kgLaura Spasic NITRATE OPERATOR-C Work Phone: 1(419)[address] [place], [place] 0321609-15-2025 11:27-0400 Body .37 cmLaura Spasic NITRATE OPERATOR-C Work Phone: 1(543)[address] [place], [place] 0321609-15-2025 11:27-0400 Body mass index (BMI) [Ratio]25 kg/r0Vpozp Spasic NITRATE OPERATOR-C Work Phone: 1(419)[address] [place], [place] 0321609-15-2025 11:27-0400 Body .11 kgLaura Spasic NITRATE OPERATOR-C Work Phone: 1(419)[address] [place], [place] 0321609-15-2025 11:27-0400 Diastolic blood rpumpwyl70 mm[Hg]Ajit Spasic NITRATE OPERATOR-C Work Phone: 1(419)[address] [place], [place] 0321609-15-2025 11:27-0400 Heart rate79 /minLaura Spasic NITRATE OPERATOR-C Work Phone: [phone] [place], [place] 0321609-15-2025 11:27-0400 SaO2% (BldA) [Mass fraction]98 %Ajit Spasic NITRATE OPERATOR-C Work Phone: 1(419)[address] [place], [place] 0321609-15-2025 11:27-0400 Systolic blood qccytpjb173 mm[Hg]Ajit Spasic NITRATE OPERATOR-C Work Phone: 1(287)[address] [place], [place] 0321608-06-2025 09:59-0400 Body oohbtu80.94 kgLaura Spasic NITRATE OPERATOR-C Work Phone: 1(675)[address] [place], [place] 0321608-06-2025 09:59-0400 Diastolic blood hqeyzjux94 mm[Hg]Ajit Spasic NITRATE OPERATOR-C Work Phone: 1([phone] [place], [place] 0321608-06-2025 09:59-0400 Heart rate80 /minLaura Spasic NITRATE OPERATOR-C Work Phone: 1(419)[address] [place], [place] 0321608-06-2025 09:59-0400 Respiratory rate20 /minLaura Spasic NITRATE OPERATOR-C Work Phone: 1(175)[address] [place], [place] 0321608-06-2025 09:59-0400 SaO2% (BldA) [Mass fraction]98 %Ajit Spasic NITRATE OPERATOR-C Work Phone: [phone])62025 [address]08-06-2025 09:59-0400 Systolic blood ccbidevc209 mm[Hg]Ajit Spasic NITRATE OPERATOR-C Work Phone: 1([phone] [place], [place] 0321608-06-2025 09:10-0400 Body hzimfa76.05 kgLaura Spasic NITRATE OPERATOR-C Work Phone: 1(419)[address] [place], [place] 0321608-06-2025 09:10-0400 Diastolic blood duyorttj53 mm[Hg]Ajit Spasic NITRATE OPERATOR-C Work Phone: 1(773)[address] [place], [place] 0321608-06-2025 09:10-0400 Heart rate69 /minLaura Spasic NITRATE OPERATOR-C Work Phone: 1(469)[address] [place], [place] 0321608-06-2025 09:10-0400 SaO2% (BldA) [Mass fraction]98 %Ajit Spasic NITRATE OPERATOR-C Work Phone: 1([phone])48025 [address]08-06-2025 09:10-0400 Systolic blood jqlkuore214 mm[Hg]Ajit Spasic NITRATE OPERATOR-C Work Phone: 1(960)[address] [place], [place] 0321607-14-2025 14:00-0400 Body dukkos457.37 cmLaura Spasic NITRATE OPERATOR-C Work Phone: 1(943)[address] [place], [place] 0321607-14-2025 14:00-0400 Body mass index (BMI) [Ratio]24 kg/t5Stuhh Spasic NITRATE OPERATOR-C Work Phone: 1(302)[address] [place], [place] 0321607-14-2025 14:00-0400 Body dmhxkcornhl44.9 [degF]Ajit Spasic NITRATE OPERATOR-C Work Phone: 1(935)[address] [place], [place] 0321607-14-2025 14:00-0400 Body kttugj40.67 kgLaura Spasic NITRATE OPERATOR-C Work Phone: 1(778)[address] [place], [place] 0321607-14-2025 14:00-0400 Diastolic blood mm[Hg]Ajit Spasic NITRATE OPERATOR-C Work Phone: 1(045)028[address]07-14-2025 14:00-0400 Heart rate82 /minLaura Spasic NITRATE OPERATOR-C Work Phone: 1(005)90325 [address]07-14-2025 14:00-0400 Systolic blood ehjqidfr751 mm[Hg]Ajit Spasic NITRATE OPERATOR-C Work Phone: 1(894)[address] [place], [place] 0321607-02-2025 09:49-0400 Body gdlerd60.66 kgLaura Spasic NITRATE OPERATOR-C Work Phone: 1(641)[address] [place], [place] 0321607-02-2025 09:49-0400 Diastolic blood lchepjhl32 mm[Hg]Ajit Spasic NITRATE OPERATOR-C Work Phone: 1(089)[address] [place], [place] 0321607-02-2025 09:49-0400 Heart rate76 /minLaura Spasic NITRATE OPERATOR-C Work Phone: 1(492)[address] [place], [place] 0321607-02-2025 09:49-0400 Respiratory rate20 /minLaura Spasic NITRATE OPERATOR-C Work Phone: 1(509)[address] [place], [place] 0321607-02-2025 09:49-0400 SaO2% (BldA) [Mass fraction]100 %Ajit Spasic NITRATE OPERATOR-C Work Phone: 1(850)[address] [place], [place] 0321607-02-2025 09:49-0400 Systolic blood icqjuqgk820 mm[Hg]Ajit Spasic NITRATE OPERATOR-C Work Phone: 1(774)[address] [place], [place] 0321606-17-2025 08:48-0400 Body cuiptr424.37 cmLaura Spasic NITRATE OPERATOR-C Work Phone: 1(367)[address] [place], [place] 0321606-17-2025 08:48-0400 Body mass index (BMI) [Ratio]25.4 kg/p9Pcvkq Spasic NITRATE OPERATOR-C Work Phone: [phone])17225 [address]06-17-2025 08:48-0400 Body fxgipl49.3 kgLaura Spasic NITRATE OPERATOR-C Work Phone: 1(640)[address] [place], [place] 0321606-11-2025 08:50-0400 Body xvhvyt572.37 cmLaura Spasic NITRATE OPERATOR-C Work Phone: 1(987)[address] [place], [place] 0321606-11-2025 08:50-0400 Body mass index (BMI) [Ratio]24.9 kg/i6Rvrbd Spasic NITRATE OPERATOR-C Work Phone: 1(966)[address] [place], [place] 0321606-11-2025 08:50-0400 Body .4 [degF]Ajit Spasic NITRATE OPERATOR-C Work Phone: 1(427)[address] [place], [place] 0321606-11-2025 08:50-0400 Body ponbyi49.94 kgLaura Spasic NITRATE OPERATOR-C Work Phone: 1(165)[address] [place], [place] 0321606-11-2025 08:50-0400 Diastolic blood gumrjifp20 mm[Hg]Ajit Spasic NITRATE OPERATOR-C Work Phone: 1(329)[address] [place], [place] 0321606-11-2025 08:50-0400 Heart rate91 /minLaura Spasic NITRATE OPERATOR-C Work Phone: 1(188)[address] [place], [place] 0321606-11-2025 08:50-0400 Respiratory rate20 /minLaura Spasic NITRATE OPERATOR-C Work Phone: 1(978)[address] [place], [place] 0321606-11-2025 08:50-0400 SaO2% (BldA) [Mass fraction]99 %Ajit Spasic NITRATE OPERATOR-C Work Phone: 1(017)[address] [place], [place] 0321606-11-2025 08:50-0400 Systolic blood bhqobsij157 mm[Hg]Ajit Spasic NITRATE OPERATOR-C Work Phone: 1(402)[address] [place], [place] 0321604-23-2025 11:34-0400 Body pceumsfwbwp71.7 [degF][facility]04-23-2025 11:34-0400Diastolic blood roexvjvy04 mm[Hg][facility]04-23-2025 11:34-0400Heart rate93 /minAstrit [facility]04-23-2025 11:34-0400Respiratory rate18 /minAstrit [facility]04-23-2025 11:34-6226TfD4% (BldA) [Mass fraction]99 %[facility]04-23-2025 11:34-0400Systolic blood pressure 140 mm[Hg][facility]10-06-2024 15:23-0400 Diastolic blood eqreznke66 mm[Hg]Ambrose Cedeño [address]10-06-2024 15:23-0400Heart rate80 /minAmbrose Cedeño [address] [place], [place] 4237210-06-2024 15:23-0400Mean blood ptthhpja75 mm[Hg]Ambrose Cedeño [address]10-06-2024 15:23-0400 Respiratory rate18 /minAmbrose Cedeño [address]10-06-2024 15:23-5881CeI2% (BldA) [Mass fraction]99 %Ambrose Cedeño [address]10-06-2024 15:23-0400 Systolic blood ojscpvcv242 mm[Hg]Ambrose Cedeño [address]10-06-2024 14:45-0400 Diastolic blood qckttcri49 mm[Hg]Ambrose Cedeño [address]10-06-2024 14:45-0400Heart rate83 /Antwan Cedeño [address]10-06-2024 14:45-0400 Hourly RoundingAmbrose Cedeño [address]10-06-2024 14:45-0400Mean blood mm[Hg]Ambrose Cedeño [address]10-06-2024 14:45-0400 Promise to ReturnKevin Davidson [address] [place], [place] 1245810-06-2024 14:45-0400 Respiratory rate18 /minKevin Davidson [address]10-06-2024 14:45-6324ViX9% (BldA) [Mass fraction]99 %Ambrose Cedeño [address]10-06-2024 14:45-0400 Systolic blood ippjxgjj838 mm[Hg]Ambrose Davidson [address] [place], [place] 423[address]10-06-2024 13:45-0400 Diastolic blood eurykplz89 mm[Hg]Ambrose Davidson [address] [place], [place] 423[address]10-06-2024 13:45-0400Heart rate79 /minThomasvin Davidson [address]10-06-2024 13:45-0400 Hourly RoundingAmbrose Cedeño [address] [place], [place] 1245810-06-2024 13:45-0400Mean blood bnpsbtso88 mm[Hg]Ambrose Cedeño [address] [place], [place] 1245810-06-2024 13:45-0400 Promise to ReturnThomasvin Davidson [address] [place], [place] 1245810-06-2024 13:45-0400 Respiratory rate18 /minThomasvin Davidson [address]10-06-2024 13:45-2278KzV8% (BldA) [Mass fraction]99 %Ambrose Davidson [address]10-06-2024 13:45-0400 Systolic blood uhkdjnyy053 mm[Hg]Ambrose Cedeño [facility]10-06-2024 12:41-0400Body iwljfcexfjp71.24 [degF]Ambrose Cedeño [facility]10-06-2024 12:41-0400Heart rate82 /minAmbrose Cedeño [facility]10-03-2024 20:55-0400 Diastolic blood rkqlnymt71 mm[Hg]NITRATE OPERATOR-C Ajit Spasic Work Phone: 1(600)[address]10-03-2024 20:55-0400 Heart rate98 /minNP-C Ajit Spasic Work Phone: 1(883)[address]10-03-2024 20:55-0400 Respiratory rate18 /minNP-C Ajit Spasic Work Phone: 1(187)[address]10-03-2024 20:55-0400 SaO2% (BldA) [Mass fraction]97 %NITRATE OPERATOR-C Ajit Spasic Work Phone: 1(250)[address]10-03-2024 20:55-0400 Systolic blood duffxgmu682 mm[Hg]NITRATE OPERATOR-C Ajit Spasic Work Phone: 1(031)[address]10-03-2024 16:05-0400 Body .37 cmNP-C Ajit Spasic Work Phone: 1(170)[address]10-03-2024 16:05-0400 Body mjdxigrexri95.2 [degF]NITRATE OPERATOR-C Ajit Spasic Work Phone: 1(233)[address]10-03-2024 16:05-0400 Body tntqep28.67 kgNP-C Ajit Spasic Work Phone: 1(799)[address]07-09-2024 14:08-0400 Diastolic blood dganfbph05 mm[Hg]NITRATE OPERATOR-C Ajit Spasic Work Phone: 1(881)25025 [address]07-09-2024 14:08-0400 Heart rate83 /minNP-C Ajit Spasic Work Phone: 1(487)[address]07-09-2024 14:08-0400 SaO2% (BldA) [Mass fraction]99 %NITRATE OPERATOR-C Ajit Spasic Work Phone: 1(430)[address] [place], [place] [address]321607-09-2024 14:08-0400 Systolic blood kazrzhvf464 mm[Hg]NITRATE OPERATOR-C Ajit Spasic Work Phone: 1(461)[address] [place], [place] [address]321606-13-2024 09:55-0400 Diastolic blood lnrsmlec65 mm[Hg]NITRATE OPERATOR-C Ajit Spasic Work Phone: 1(943)[address] [place], [place] [address]321606-13-2024 09:55-0400 Heart rate66 /minNP-C Ajit Spasic Work Phone: 1(286)[address] [place], [place] [address]321606-13-2024 09:55-0400 Respiratory rate20 /minNP-C Ajit Spasic Work Phone: 1(533)[address] [place], [place] [address]321606-13-2024 09:55-0400 SaO2% (BldA) [Mass fraction]99 %NITRATE OPERATOR-C Ajit Spasic Work Phone: 1(124)[address] [place], [place] [address]321606-13-2024 09:55-0400 Systolic blood uzbqbpkv848 mm[Hg]NITRATE OPERATOR-C Ajit Spasic Work Phone: 1(552)[address] [place], [place] [address]321606-13-2024 07:01-0400 Body vamnny436.37 cmNP-C Ajit Spasic Work Phone: 1(640)[address] [place], [place] [address]321606-13-2024 07:01-0400 Body cgfnfqyydyq11.3 [degF]NITRATE OPERATOR-C Ajit Spasic Work Phone: 1(162)[address] [place], [place] [address]1606-13-2024 07:01-0400 Body oaqdle38.85 kgNP-C Ajit Spasic Work Phone: 1(737)[address]06-05-2024 14:14-0400 Diastolic blood jdpzkohx11 mm[Hg]NITRATE OPERATOR-C Ajit Spasic Work Phone: 1(623)[address]06-05-2024 14:14-0400 Heart rate95 /minNP-C Ajit Spasic Work Phone: 1419)[address] [place], [place] [address]321606-05-2024 14:14-0400 SaO2% (BldA) [Mass fraction]99 %NITRATE OPERATOR-C Ajit Spasic Work Phone: 1419)[address] [place], [place] 0321606-05-2024 14:14-0400 Systolic blood bjsddsac400 mm[Hg]NITRATE OPERATOR-C Ajit Spasic Work Phone: 1(471)[address] [place], [place] 0321605-29-2024 12:19-0400 Diastolic blood ufofnuyy97 mm[Hg]NITRATE OPERATOR-C Ajit Spasic Work Phone: 1(607)[address] [place], [place] 0321605-29-2024 12:19-0400 Heart rate69 /minNP-C Ajit Spasic Work Phone: 1419)[address] [place], [place] 0321605-29-2024 12:19-0400 Inhaled oxygen flow rate3 L/minNP-C Ajit Spasic Work Phone: 1(584)[address] [place], [place] 0321605-29-2024 12:19-0400 SaO2% (BldA) [Mass fraction]100 %NITRATE OPERATOR-C Ajit Spasic Work Phone: 1(788)[address] [place], [place] 0321605-29-2024 12:19-0400 Systolic blood cgatatas718 mm[Hg]NITRATE OPERATOR-C Ajit Spasic Work Phone: [address] [place], [place] 0321605-29-2024 12:13-0400 Respiratory rate18 /minNP-C Ajit Spasic Work Phone: 1(541)[address] [place], [place] 0321605-29-2024 09:54-0400 Body .37 cmNP-C Ajit Spasic Work Phone: 1(423)[address] [place], [place] 0321605-29-2024 09:54-0400 Body nkkuww23.85 kgNP-C Ajit Spasic Work Phone: 1(256)[address] [place], [place] 0321605-20-2024 10:41-0400 Body .11 kgNP-C Ajit Spasic Work Phone: 1419)[address] [place], [place] 0321605-20-2024 10:41-0400 Diastolic blood jojuevxb46 mm[Hg]NITRATE OPERATOR-C Ajit Spasic Work Phone: 1419)[address] [place], [place] 0321605-20-2024 10:41-0400 Systolic blood qvjowacb782 mm[Hg]NITRATE OPERATOR-C Ajit Spasic Work Phone: 1419)[address] [place], [place] 0321601-13-2024 13:00-0500 Diastolic blood zpcdhdma16 mm[Hg]NITRATE OPERATOR-C Ajit Spasic Work Phone: 1419)[address] [place], [place] 0321601-13-2024 13:00-0500 Heart rate70 /minNP-C Ajit Spasic Work Phone: 1419)[address] [place], [place] 0321601-13-2024 13:00-0500 Respiratory rate16 /minNP-C Ajit Spasic Work Phone: 1(198)[address] [place], [place] 0321601-13-2024 13:00-0500 SaO2% (BldA) [Mass fraction]97 %NITRATE OPERATOR-C Ajit Spasic Work Phone: 1(614)[address] [place], [place] 0321601-13-2024 13:00-0500 Systolic blood bnzpzizq150 mm[Hg]NITRATE OPERATOR-C Ajit Spasic Work Phone: 1419)[address] [place], [place] 0321601-13-2024 09:33-0500 Body tyvtmm957.1 cmNP-C Ajit Spasic Work Phone: [address] [place], [place] 0321601-13-2024 09:33-0500 Body khkhuwknkir31.4 [degF]NITRATE OPERATOR-C Ajit Spasic Work Phone: 1(673)[address] [place], [place] 0321601-13-2024 09:33-0500 Body eroyfl99.3 kgNP-C Ajit Spasic Work Phone: 1(359)[address] [place], [place] 0321601-06-2024 16:00-0500 Body inasqokxqor77.7 [degF]NITRATE OPERATOR-C Ajit Spasic Work Phone: 1419)[address] [place], [place] 0321601-06-2024 16:00-0500 Diastolic blood hjpykjbb58 mm[Hg]NITRATE OPERATOR-C Ajit Spasic Work Phone: 1419)[address] [place], [place] 0321601-06-2024 16:00-0500 Heart rate85 /minNP-C Ajit Spasic Work Phone: 1419)[address] [place], [place] 0321601-06-2024 16:00-0500 Respiratory rate18 /minNP-C Ajit Spasic Work Phone: 1(109)[address] [place], [place] 0321601-06-2024 16:00-0500 SaO2% (BldA) [Mass fraction]99 %NITRATE OPERATOR-C Ajit Spasic Work Phone: 1419)[address] [place], [place] 0321601-06-2024 16:00-0500 Systolic blood iljzjwiv201 mm[Hg]NITRATE OPERATOR-C Ajit Spasic Work Phone: 1419)[address] [place], [place] 0321601-05-2024 01:12-0500 Body eqeqlm534.1 cmNP-C Ajit Spasic Work Phone: [address] [place], [place] 0321601-05-2024 01:12-0500 Body ybygca01.65 kgNP-C Ajit Spasic Work Phone: 1419)[address] [place], [place] 0321612-26-2023 13:30-0500 Diastolic blood bezdmaoq18 mm[Hg]NITRATE OPERATOR-C Ajit Spasic Work Phone: 1(195)[address] [place], [place] 0321612-26-2023 13:30-0500 Heart rate94 /minNP-C Ajit Spasic Work Phone: 1(824)[address] [place], [place] 0321612-26-2023 13:30-0500 Respiratory rate18 /minNP-C Ajit Spasic Work Phone: 1(628)[address] [place], [place] 0321612-26-2023 13:30-0500 SaO2% (BldA) [Mass fraction]94 %NITRATE OPERATOR-C Ajit Spasic Work Phone: 1(321)[address]12-26-2023 13:30-0500 Systolic blood syxihziw012 mm[Hg]NITRATE OPERATOR-C Ajit Spasic Work Phone: 1(381)[address] [place], [place] 0321612-26-2023 09:30-0500 Body szbdfypxsto64.9 [degF]NITRATE OPERATOR-C Ajit Spasic Work Phone: 1(976)[address] [place], [place] 0321612-26-2023 08:51-0500 Inhaled oxygen flow rate10 L/minNP-C Ajit Spasic Work Phone: 1(319)[address] [place], [place] 0321612-26-2023 07:20-0500 Body dyewum541.37 cmNP-C Ajit Spasic Work Phone: 1(528)[address] [place], [place] 0321612-26-2023 07:20-0500 Body mass index (BMI) [Ratio]27.7 kg/m2NP-C Ajit Spasic Work Phone: 1(717)[address]12-26-2023 07:20-0500 Body rcanru73.7 kgNP-C Ajit Spasic Work Phone: 1(063)[address]10-10-2023 13:55-0400 Diastolic blood raigfcup22 mm[Hg]NA [employer] Work Phone: [facility]10-10-2023 13:55-0400 Heart rate87 /Deloris [employer] Work Phone: [facility]10-10-2023 13:55-0400 Respiratory rate16 /Deloris [employer] Work Phone: [address] [place], [place] 1661110-10-2023 13:55-0400 SaO2% (BldA) [Mass fraction]96 %NA [employer] Work Phone: [address] [place], [place] 1661110-10-2023 13:55-0400 Systolic blood jvmwshky534 mm[Hg]NA [employer] Work Phone: [facility]10-10-2023 13:16-0400 Body whtynjcoipx08 [degF]NA [employer] Work Phone: [facility]10-10-2023 12:51-0400 Inhaled oxygen flow rate10 L/Deloris [employer] Work Phone: [address] [place], [place] 1661110-10-2023 12:17-0400 Body zryxfl005.1 cmNA [employer] Work Phone: [address] [place], [place] 1661110-10-2023 12:17-0400 Body mass index (BMI) [Ratio]28.2 kg/m2NA [facility] Work Phone: [address] [place], [place] 1661110-10-2023 12:17-0400 Body brgdae57 kgNA [employer] Work Phone: [address] [place], [place] 1661108-02-2023 10:18-0400 Diastolic blood hdadolcl76 mm[Hg]NITRATE OPERATOR-C Ajit Spasic Work Phone: [facility]08-02-2023 10:18-0400 Heart rate82 /minNP-C Ajit Spasic Work Phone: [facility]08-02-2023 10:18-0400 Respiratory rate18 /minNP-C Ajit Spasic Work Phone: [facility]08-02-2023 10:18-0400 SaO2% (BldA) [Mass fraction]98 %NITRATE OPERATOR-C Ajit Spasic Work Phone: [facility]08-02-2023 10:18-0400 Systolic blood ddsfpcej259 mm[Hg]NITRATE OPERATOR-C Ajit Spasic Work Phone: [facility]08-02-2023 09:39-0400 Inhaled oxygen flow rate3 L/minNP-C Ajit Spasic Work Phone: 1(029)[address]08-02-2023 08:43-0400 Body asveej085.1 cmNP-C Ajit Spasic Work Phone: 1(068)[address] [place], [place] 0321608-02-2023 08:43-0400 Body xfztpy65.84 kgNP-C Ajit Spasic Work Phone: 1(332)[address]07-12-2023 12:08-0400 Diastolic blood gratxcen65 mm[Hg]NITRATE OPERATOR-C Ajit Spasic Work Phone: 1(980)[address]07-12-2023 12:08-0400 Heart rate71 /minNP-C Ajit Spasic Work Phone: 1(118)[address] [place], [place] 0321607-12-2023 12:08-0400 Respiratory rate16 /minNP-C Ajit Spasic Work Phone: 1(227)[address] [place], [place] 0321607-12-2023 12:08-0400 SaO2% (BldA) [Mass fraction]97 %NITRATE OPERATOR-C Ajit Spasic Work Phone: 1(116)[address] [place], [place] 0321607-12-2023 12:08-0400 Systolic blood vcuviksu300 mm[Hg]NITRATE OPERATOR-C Ajit Spasic Work Phone: 1(269)[address] [place], [place] 0321607-12-2023 11:29-0400 Inhaled oxygen flow rate3 L/minNP-C Ajit Spasic Work Phone: 1(545)[address] [place], [place] 0321607-12-2023 10:19-0400 Body hrzqak904.1 cmNP-C Jait Spasic Work Phone: 1(081)[address] [place], [place] 0321607-12-2023 10:19-0400 Body .84 kgNP-C Ajit Spasic Work Phone: 1(332)[address]06-30-2023 11:30-0400 Body iopcey699.37 cmScara Miramontes Other [place] [employer] Other 06-30-2023 11:30-0400Body mass index (BMI) [Ratio] 27.04 kg/z5KlvpctKyler Miramontes Other [facility] [employer] Other 06-30-2023 11:30-0400Body .84 kgKyler Miramontes Other [facility] [employer] Other 06-30-2023 11:30-0400Diastolic blood fxxtzxze83 mm[Hg] Kyler Miramontes Other [facility] [employer] Other 06-30-2023 11:30-0400Systolic blood kuemlrsv850 mm[Hg] Kyler Miramontes Other [facility] [employer] Other 02-15-2023 11:59-0500Diastolic blood gnvsitsn22 mm[Hg] Services [employer] Work Phone: 7(579)137-[facility]02-15-2023 11:59-0500 Heart rate85 /[employer] Work Phone: 4(179)795-[facility]02-15-2023 11:59-0500 Respiratory rate16 /[employer] Work Phone: [facility]02-15-2023 11:59-0500 SaO2% (BldA) [Mass fraction]98 %Services [employer] Work Phone: [facility]02-15-2023 11:59-0500 Systolic blood ippfvmcd122 mm[Hg]Services [facility] [employer] Work Phone: 1(386)422-[facility]02-15-2023 11:21-0500 Inhaled oxygen flow rate3 L/[employer] Work Phone: [facility]02-15-2023 09:23-0500 Body .37 cmServices [facility] [employer] Work Phone: [facility]02-15-2023 09:23-0500 [facility]q90.38 [facility] [employer] Work Phone: [facility]01-31-2023 11:30-0500 Body .37 cmScara Miramontes Other [employer] Other 01-31-2023 11:30-0500Diastolic blood zwyfyefl23 mm[Hg] Kyler Miramontes Other [employer] Other 01-31-2023 11:30-7755XgU7% (BldA) [Mass fraction]98 % Kyler Miramontes Other [employer] Other 01-31-2023 11:30-0500Systolic blood hardbrje107 mm[Hg] Kyler Miramontes Other [employer] Other 10-28-2022 11:50-0400Blood Pressure LocationCarterLink_A_ [facility] [place] 943640-28-2022 11:50-0400Diastolic blood iadbzvfy00 mm[Hg]JoshuaLink_A_ [facility]10-28-2022 11:50-0400Heart rate70 /minCarterLink_A_ [facility] [place] 943640-28-2022 11:50-0400Respiratory rate16 /minCarterLink_A_ [facility] [place] 943640-28-2022 11:50-0400Systolic blood srraolmo227 mm[Hg]JoshuaLink_A_ [employer] [facility]08-24-2022 09:13-0400Body .9 [degF]Services [facility] [employer] Work Phone: 1(161)126[facility]08-24-2022 09:13-0400 Body btdsga67.11 kgServices [facility] [employer] Work Phone: 1(373)[address]08-24-2022 09:13-0400 Diastolic blood yzqwcwbb44 mm[Hg]Services [employer] Work Phone: 1(756)[address]08-24-2022 09:13-0400 Heart rate70 /minSEventus Software [employer] Work Phone: 1(422)[address]08-24-2022 09:13-0400 Respiratory rate20 /[employer] Work Phone: 1(769)50386 [address]08-24-2022 09:13-0400 SaO2% (BldA) [Mass fraction]98 %Services [facility] [employer] Work Phone: 1(274)701[facility]08-24-2022 09:13-0400 Systolic blood mutkyaee326 mm[Hg]Services [facility] [employer] Work Phone: 1(114)[address]08-24-2022 08:06-0400 Body uqkhel860.37 cmServAdvanced [employer] Work Phone: 1(477)[address]07-29-2022 22:19-0400 Diastolic blood pdkvfuwy65 mm[Hg]Services [employer] Work Phone: 1(449)344-[address] [employer], [place] 8364807-29-2022 22:19-0400 Heart rate86 /[employer] Work Phone: 1(072)[address]07-29-2022 22:19-0400 Respiratory rate18 /minSEventus Software Pvt Work Phone: 1(351)184-[facility]07-29-2022 22:19-0400 SaO2% (BldA) [Mass fraction]99 %Services [employer] Work Phone: 1(419)502-[address] [employer] [place] [employer], [place] 8364807-29-2022 22:19-0400 Systolic blood qedzzews976 mm[Hg]Services [facility] [employer] Work Phone: 1(553)[address]07-29-2022 17:09-0400 Body jpegbi612.37 [facility] [employer] Work Phone: 1(214)[address] [place], [place] 7594307-29-2022 17:09-0400 Body lullodgscqr63.4 [degF]Services [facility] [employer] Work Phone: 1(469)[address]07-29-2022 17:09-0400 Body .8 kgSerSentara [facility] [employer] Work Phone: 1(403)[address]07-27-2022 14:29-0400 Body hzweoo157.1 [facility] [employer] Work Phone: 1(313)[address]07-27-2022 14:29-0400 Body ytuyytjpmfx45.8 [degF]Services [facility] [employer] Work Phone: 1(996)[address]186 [address]07-27-2022 14:29-0400 Body gruthf74.03 kgSerSentara [facility] [employer] Work Phone: 1(500)[address]86 [address]07-27-2022 14:29-0400 Diastolic blood fzghfxty44 mm[Hg]Services [facility] [employer] Work Phone: 1(614)[address]07-27-2022 14:29-0400 Heart rate70 /[facility] [employer] Work Phone: 1(810)[address]07-27-2022 14:29-0400 Respiratory rate16 /[facility] [employer] Work Phone: 1(181)[address]07-27-2022 14:29-0400 SaO2% (BldA) [Mass fraction]100 %Services [facility] [employer] Work Phone: 1(269)[address]07-27-2022 14:29-0400 Systolic blood pxpqjosl848 mm[Hg]Services [facility] [employer] Work Phone: 1(419)[address]05-19-2022 15:45-0400 Body yzpfma739.37 Ama Miramontes Other [employer] Other 05-19-2022 15:45-0400Body mass index (BMI) [Ratio] 27.36 kg/y8Gmlwknjacque Miramontes Other [employer] Other 05-19-2022 15:45-0400Body irzvfx28.75 kgShericorona Miramontes Other [employer] Other 05-19-2022 15:45-0400Diastolic blood pqdlxipi21 mm[Hg] Kyler Miramontes Other [employer] Other 05-19-2022 15:45-0400Systolic blood elxbevha847 mm[Hg] Kyler Fe Other [employer] Other 04-27-2022 14:00-0400Body jyiavh935.37 Ama Miramontes Other [employer] Other 04-27-2022 14:00-0400Body mass index (BMI) [Ratio] 27.27 kg/e7Cqqwws Zaky Other [employer] Other 04-27-2022 14:00-0400Body tyfhmr30.48 kgShjacque Miramontes Other [employer] Other 04-27-2022 14:00-0400Diastolic blood mm[Hg] Kyler Aliceaky Other [employer] Other 04-27-2022 14:00-0400Systolic blood jjyzdiyn234 mm[Hg] Kyler Miramontes Other [place] [employer] Other 04-13-2022 12:00-0400Body wtddak985.37 cmDadavi Callaway Other [employer] Other 04-13-2022 12:00-0400Body mass index (BMI) [Ratio] 25.23 kg/d5Pnkqjrdavi Callaway Other [facility] [employer] Other 04-13-2022 12:00-0400Body hxyrab64.85 kgDadavi Callaway Other [employer] Other Encounters Encounter DateEncounter TypeCare ProviderFacilityStart: 64-51-6164bqpwwrxoim Deepika X OrzechFacility:[place]kyStart: 08-09-2025 End: 04-12-3613tsurzxbijfWbvwc E Spasic NITRATE OPERATOR-C Work Phone: [phone]([phone]-Cjqmvsiyp Health NeurologyStart: 08-09-2025 End: 47-76-6462Riogcay encounter procedureChrishiral Ramirez DO-[facility] Work Phone: Start: 08-01-2025 End: 71-01-5540jwkjqebddcQshjb E Spasic NITRATE OPERATOR-C Work Phone: 6(882)037-5397918-1391-Ruucolugv Health NeurologyStart: 08-01-2025 End: 40-72-7869Qbfyuxf encounter procedureSkristi Templeton APRN-FNP-C-[facility] Work Phone: Start: 07-13-2025 End: 88-91-8571qdmhydgagaSbkoy E Spasic NITRATE OPERATOR-C Work Phone: [facility] Work Phone: Start: 07-13-2025 End: 25-31-9578Abiibxy encounter procedureScara Miramontes MD-[facility] Work Phone: Start: 07-04-2025 End: 74-71-3281Bdtvfpyia to same day surgery centerScara Miramontes MD-[facility] Work Phone: Start: 07-04-2025 End: 49-13-4481mkfxsaaazrOjnym E Spasic NITRATE OPERATOR-C Work Phone: [facility] Work Phone: Start: 32-58-6861Cbb-patient / Non-visitScara Miramontes MD-[facility] Work Phone: Start: 06-25-2025 End: 60-41-7848aakrebqppvIpzvigw P COOKFacility:[place]Start: 06-25-2025 End: 52-03-1560Geweipy encounter procedureJoshua PRESTON [facility] Start: 06-18-2025 End: 99-36-4496ukfwbabeyyXbpzu E Spasic NITRATE OPERATOR-C Work Phone: [facility] Work Phone: Start: 06-18-2025 End: 10-02-2713Urcpxec encounter procedureScara Miramontes MD-[facility] Work Phone: Start: 06-18-2025 End: 34-61-1629zwekxisvkdDxxwt E Spasic NITRATE OPERATOR-C Work Phone: [facility] Work Phone: Start: 06-18-2025 End: 15-87-8856Cjvpnom encounter procedureScara GUZMÁNFormerly [facility] Work Phone: Start: 06-11-2025 End: 85-20-0798Ohnpgbjda department patient visitChailyn Lizama Facility:[facility]MCStart: 05-29-2025 End: 93-13-4723djadxpxkezOvstcok P COOKFacility:[place]Start: 05-29-2025 End: 74-52-0725Rgsvfsd encounter procedureCarterkamini PRESTON [facility] Ana Paula Start: 05-17-2025 End: 39-73-9672djsqbrfoycSeczl E Spasic NITRATE OPERATOR-C Work Phone: [facility] Work Phone: Start: 05-17-2025 End: 02-76-3293Kfbsnxg encounter procedureNicmelody Lepe [facility] Work Phone: Start: 59-26-3234Rmixmxwyun Kim Woo NITRATE OPERATOR-C-[facility] Work Phone: Start: 05-09-2025 End: 73-53-6040tfzqhvfxanKfgvw E Spasic NITRATE OPERATOR-C Work Phone: [facility] Work Phone: Start: 05-09-2025 End: 71-02-3129Jxoyzri encounter procedureChristopher Michael Ramirez [facility] Neurology Work Phone: Start: 04-18-2025 End: 26-74-2728Dojxpef encounter procedureLeodan Patricia MD-[facility] [place] Work Phone: Start: 04-18-2025 End: 86-80-1297fzkepyjbeyIogas E Spasic NITRATE OPERATOR-C Work Phone: [facility] Work Phone: Start: 71-71-6024Abqpgmtono Kim Woo NITRATE OPERATOR-C-[facility] Work Phone: Start: 04-16-2025 End: 88-04-6645xnjylyihkkVoqeu E Spasic NITRATE OPERATOR-C Work Phone: [facility] Work Phone: start: 04-16-2025 End: 47-64-3737Kwktaxf encounter procedureMicjyoti Patricia MD-[facility] Infect Dis Work Phone: Start: 91-17-9030Ykwblmydfp RecurringCaitalbino Shelton Chilo NITRATE OPERATOR-C-[facility] Work Phone: Start: 04-04-2025 End: 12-61-0226awqlfqmvriFugkd E Spasic NITRATE OPERATOR-C Work Phone: [facility] Work Phone: Start: 04-04-2025 End: 17-55-8441Gfuwmij encounter procedureEnrique Pratt MD-[facility] Work Phone: Start: 03-20-2025 End: 33-55-0682Klmjqhr encounter procedureCb Raines MD-[facility] Neurosurgery Work Phone: start: 31-10-9530Xuvhmvpudz RecurringLaura Spasic NITRATE OPERATOR-C Work Phone: [facility] Work Phone: Start: 03-14-2025 End: 40-42-8772vxcsfrsclsEioso E Spasic NITRATE OPERATOR-C Work Phone: [facility] Work Phone: Start: 03-14-2025 End: 86-49-8448Byewoxt encounter procedureLaura Spasic NITRATE OPERATOR-C Work Phone: [facility] Ambulatory Work Phone: Start: 03-06-2025 End: 74-75-2469Kyndiqi encounter procedureLaura Spasic NITRATE OPERATOR-C Work Phone: [facility]-Ultrasound [facility] [place] Work Phone: Start: 03-06-2025 End: 26-69-2023nngqjoihxtXwhcj E Spasic NITRATE OPERATOR-C Work Phone: [facility] Work Phone: Start: 02-26-2025 End: 86-78-5237urwuibsvctRqzea E Spasic NITRATE OPERATOR-C Work Phone: [facility] Work Phone: Start: 02-26-2025 End: 69-27-9397Mvifhile ReferredLaura Spasic NITRATE OPERATOR-C Work Phone: [facility]-LAB Path Spec [facility] HospStart: 71-99-7086xmeyuedsotCsftozo COOKFacility:EU [place]stratfordyStart: 02-20-2025 End: 68-84-1921vgscrxeydcFjcrr E SpasicFacility:[facility] Hospitaltart: 02-20-2025 End: 50-42-3834Rhotoujs ReferredLaura Spasic NITRATE OPERATOR-C Work Phone: [phone])407-[address] [place] [address] [facility]trInd[facility] HospitalStart: 02-16-2025 End: 08-40-7882wvqwxtjfssLwxpqfc PayFacility:[facility] Start: 02-16-2025 End: 19-26-3246Rsnkyiil ReferredLaura Spasic NITRATE OPERATOR-C Work Phone: [facility]-LAB Path Spec [facility] HospStart: 02-15-2025 End: 94-36-0309Qruabon encounter procedureLaura Spasic NITRATE OPERATOR-C Work Phone: [facility] Work Phone: Start: 02-15-2025 End: 17-98-4369gmkgzoxepbFqojv E SpasicFacility:[facility] Hospitaltart: 02-12-2025 End: 50-68-3409gvfukbdftaSdwgh E Spasic NITRATE OPERATOR-C Work Phone: [facility] Work Phone: Start: 02-12-2025 End: 63-21-0032Oftkwebi ReferredLaura Spasic NITRATE OPERATOR-C Work Phone: [facility]-LAB Path Spec [facility] HospStart: 01-24-2025 End: 04-05-1194Jwhijaylr department patient visitLaura GrahamBobyUniversity of [facility] Rehabilitation [facility] Start: 01-18-2025 End: 75-36-2625vdimbfxraxCeeww E Spasic NITRATE OPERATOR-C Work Phone: [facility] Work Phone: Start: 01-18-2025 End: 44-12-1312Uqblbtyy ReferredLaura Spasic NITRATE OPERATOR-C Work Phone: [facility]-LAB Path Spec [facility] HospStart: 09-06-2024 End: 52-87-5974lalrrisltmFgmti E SpasicFacility:[facility] Hospitaltart: 09-05-2024 End: 06-90-7727afuloudwrbNfaqo E SpasicFacility:[facility] Hospitaltart: 07-24-2024 End: 17-03-2469Jobkkou encounter procedureNP-C Ajit Spasic Work Phone: [facility]-Ultrasound Cntr for Breast CarStart: 07-24-2024 End: 78-31-4580cvqxgrjomfUF-C Ajit E Spasic Work Phone: [facility] Work Phone: Start: 07-09-2024 End: 26-89-5250Mgpcgybao department patient visitAmbrose CedeñoFacility:[facility] Start: 07-06-2024 End: 36-47-9693Jvcjvlzdx department patient visitNPMelizaC Ajit Lariossic Work Phone: [facility]-Emergency Room Work Phone: Start: 07-04-2024 End: 63-57-0265mhkntmjiivKM-C Ajit aCt Spasic Work Phone: [facility] Work Phone: Start: 07-04-2024 End: 96-36-2612Gdrhoez encounter procedureNP-C Ajit Spasic Work Phone: [facility]-Lab [facility] [place] Work Phone: Start: 06-08-2024 End: 02-87-7612odehwpeuxdQG-C Ajit E Spasic Work Phone: [facility] Work Phone: Start: 06-08-2024 End: 68-28-9033Pygjkmd encounter procedureNP-C Ajit Spasic Work Phone: [facility]-[address] Work Phone: Start: 05-16-2024 End: 11-28-8960qjnfizmyqzUV-C Ajit E Spasic Work Phone: [facility] Work Phone: Start: 05-16-2024 End: 73-52-1743Ycglooxd ReferredNP-C Ajit Spasic Work Phone: [facility]: [facility] End: 07-14-6789xwvtfdbdwsBB-C Ajit E Spasic Work Phone: [facility] Work Phone: Start: 04-11-2024 End: 47-62-8556Yykxgmd encounter procedureNP-C Ajit Spasic Work Phone: [facility] Work Phone: Start: [id number]-patient / Mpk-jdjxjWU-O Ajit Spasic Work Phone: [facility] Work Phone: Start: 03-16-2024 End: 68-06-1492Joacbgrmz to same day surgery centerNP-C Ajit Spasic Work Phone: [facility] Work Phone: Start: 03-16-2024 End: [id number]-C Ajit E Spasic Work Phone: [facility] Work Phone: Start: 03-08-2024 End: 39-27-4808lizbsjpguoNR-C Ajit E Spasic Work Phone: [facility] Work Phone: Start: 03-08-2024 End: 67-72-3995Ypfcvwb encounter procedureNP-C Ajit Spasic Work Phone: [facility] Work Phone: Start: 03-02-2024 End: 93-46-8563dzkxjclqslOO-C Ajit E Spasic Work Phone: [facility] Work Phone: Start: 03-02-2024 End: 99-00-5287Pscjirv encounter procedureNP-C Ajit Spasic Work Phone: [phone]-[facility] [place]5[facility] [facility] Work Phone: Start: 85-39-7896Alm-patient / Xgv-sfinvQE-I Ajit Spasic Work Phone: [facility] Work Phone: Start: 03-01-2024 End: 17-83-3604Mrqeturpf to same day surgery centerNP-C Ajit Spasic Work Phone: [facility]-Digestive [facility] Work Phone: Start: 03-01-2024 End: 33-36-5776syadzhmqwxRI-C Ajit E Spasic Work Phone: [phone] [place] [address] Work Phone: Start: 02-21-2024 End: 50-08-9717embtswhlgtXV-C Ajit E Spasic Work Phone: [facility] Work Phone: Start: 02-21-2024 End: 25-98-2560Dtqopxv encounter procedureNP-C Ajit Spasic Work Phone: [facility] Work Phone: Start: 02-09-2024 End: 52-64-3130ohnleavuqwAM-C Ajit E Spasic Work Phone: [facility] Work Phone: Start: 02-09-2024 End: 13-35-3793Odtnqpy encounter procedureNP-C Ajit Spasic Work Phone: [facility]-Ultrasound Cntr for Breast CarStart: 02-04-2024 End: 22-52-9960uhhommhokhRE-C Ajit E Spasic Work Phone: [facility] Work Phone: Start: 02-04-2024 End: 31-02-8428Aejyhna encounter procedureNP-C Ajit Spasic Work Phone: [facility] Breast [facility] Work Phone: Start: 01-21-2024 End: 28-50-3620ljgievulceRP-C Ajit E Spasic Work Phone: [facility] Work Phone: Start: 01-21-2024 End: 58-76-2976Lqaquyg encounter procedureNP-C Ajit Spasic Work Phone: [facility]-Ultrasound Main [place] Work Phone: Start: 01-18-2024 End: 30-21-4274ewfgwfxvbsWF-C Ajit Spasic Work Phone: [facility] Work Phone: Start: 01-18-2024 End: 26-15-2700Gcvtqmtz ReferredNP-C Ajit Spasic Work Phone: [facility] ServicesStart: 10-20-2023 End: 61-73-1894oyvugxsvdnZVSLOMM A VISCINot AvailableStart: 10-16-2023 End: 70-84-3896Pmenqmplj department patient visitNP-C Ajit Spasic Work Phone: [facility]-Emergency Room Work Phone: Start: 10-07-2023 End: 40-30-8423Jlkmjwdhyv and management of inpatientNP-C Ajit Spasic Work Phone: [facility]-[address] Work Phone: Start: 09-28-2023 End: 31-54-5861Oosjctgqw to same day surgery centerNP-C Ajit Spasic Work Phone: [facility]-Surgery Center Main CampusStart: 09-16-2023 End: 06-09-7707aybilflihxTS-C Ajit E Spasic Work Phone: [facility] Work Phone: Start: 09-16-2023 End: 31-75-8865Nbxmjul encounter procedureNP-C Ajit Spasic Work Phone: [facility]-Pre-Surgical Testing Work Phone: Start: 07-13-2023 End: 13-08-3108Dbikyzbok to same day surgery centerNA [employer] Work Phone: [facility]-Surgery Center Main CampusStart: 07-13-2023 End: 42-89-3619dptfrwriuf. [employer] Work Phone: [facility] Work Phone: Start: 06-30-2023 End: 54-60-0620kyyrmejxtt. [employer] Work Phone: [facility] Work Phone: Start: 06-30-2023 End: 61-31-8981Ctkvsml encounter procedureNA [employer] Work Phone: [facility] Bub-Cmp-Vxdhztus Testing Work Phone: Start: 05-05-2023(PROC) PROCEDURESherMercy Hospital [facility]oplin Medical OutPtStart: 05-05-2023 End: 65-70-2588Rcattsnnj to same day surgery centerNP-C Ajit Spasic Work Phone: [facility]-Digestive Health Work Phone: Start: 05-05-2023 End: 34-24-5442wnrpaccsvdVOU [facility] Work Phone: Start: 05-04-2023 End: 18-41-2103ftomflhhlxDSKDelaware County Hospital [facility] Work Phone: Start: 05-04-2023 End: 01-94-3538Gmkygmuo ReferredNP-C Ajit Spasic Work Phone: [facility] HospitalStart: 04-26-2023 End: 49-83-3252Pjrquuv encounter procedureNP-C Ajit Spasic Work Phone: [facility]-Lab Main [place] Work Phone: Start: 04-14-2023(PROC) PROCEDURESherSumma Health OutPtStart: 04-14-2023 End: 97-28-9984Kbohypnuf to same day surgery centerNP-C Ajit Spasic Work Phone: [facility]-Digestive Health Work Phone: Start: 04-14-2023 End: 14-72-0861najsjemvdfCKO STAFFNort [employer] Other Start: 04-02-2023 End: 45-48-3859ypcxivrzeiIavkio Zaky Other [facility] [employer] Other Start: 87-29-3111Qmzmsv outpatient visit 25 minutes Kyler MiramontesAUGIEG Pain Management [place]walkStart: 02-15-2023 End: 88-90-0085fvbmxcjwumHZALH SPASICFacility:G3Hbnvi: 02-09-2023 End: 64-01-9863czsreybxotKvpochxeFirstHealth Work Phone: [facility] Work Phone: Start: 02-09-2023 End: 20-09-4863Ollxsnfj [facility] Work Phone: [facility] ServicesStart: 01-29-2023 End: 98-67-8572zgmrarunhuBIYWD SPASICFacility:G1Kaunf: 11-18-2022(PROC) PROCEDUREScara MiramontesCleveland Clinic [facility] Medical OutPtStart: 11-18-2022 End: 80-36-8446Gpksvxuli to same day surgery [facility] Work Phone: [facility]-Digestive Health Work Phone: Start: 11-18-2022 End: 79-76-1682coubbgbpgxXquhsxlyFirstHealth Work Phone: [facility] Work Phone: Start: 11-12-2022 End: 51-26-0720eitxrnwlwnHW ANISA MARKER .Facility:S5Cymbk: 11-05-2022 End: 77-59-5027xcebdxhhtnDvlfdhnkEncompass Health Rehabilitation Hospital Senior Work Phone: [facility] Work Phone: Start: 11-05-2022 End: 97-11-1317Hwrezhte ReferredSerSentara RMH Medical Center [employer] Work Phone: [facility] HospitalStart: 11-03-2022 End: 29-09-2621obxucrlmyaYaeflp Zaky Other [place] [employer] Other Start: 90-24-8510Ayqmra outpatient visit 25 minutes Kyler MiramontesFPG Pain ManagementStart: 11-03-2022 End: 04-63-5584Srirxmx encounter procedureServSandhills Regional Medical Center Work Phone: [facility] Work Phone: Start: 11-02-2022 End: 81-24-7981Dsnsuzr encounter procedureGregkamini Dempsey [email or web address] [facility] Start: 09-29-2022 End: 12-71-9858Jteulgy encounter procedureGregory Roselyn [email or web address] [facility] Start: 08-24-2022 End: 31-13-8951Fdumksd encounter procedureGregory P [email or web address] [facility] Start: 07-31-2022 End: 06-15-5293Hjuzxen encounter procedureGregory P [email or web address] [facility] Start: 07-08-2022 End: 83-75-6298peqairjgfhBqrbtwen Family Health [employer] Work Phone: [facility] Work Phone: Start: 07-08-2022 End: 87-31-2286Lsdnjzh encounter procedureServices [facility] Senior Work Phone: [facility] Ctr-Lab Main CampusStart: 06-24-2022 End: 32-85-1674Haixguo encounter procedureServices [facility] Work Phone: [facility]-MRI Main CampusStart: 06-17-2022 End: 89-21-2734Uubyffb encounter procedureServices [facility] Work Phone: [facility]-Ultrasound [facility] [place] Start: 06-09-2022 End: 82-32-2054Lvxedjp encounter procedureServices [facility] Work Phone: [facility]-Ultrasound [facility] [place] Start: 06-02-2022 End: 95-34-5769Qbzmwsnr ReferredSergrand view health [facility] Senior Work Phone: [facility] ServicesStart: 05-27-2022 End: 05-44-3071Whpgjxtiyo RecurringServic Family [facility] Senior Work Phone: [facility]-Cancer CenterStart: 05-07-2022 End: 32-47-2845Pgpjtft encounter procedureServices [facility] Work Phone: [facility]-Lab Main CampusStart: 05-01-2022 End: 96-14-3594Qbtxgrclr department patient visitServices Family [facility] Senior Work Phone: [facility]-Emergency RoomStart: 05-01-2022 End: 50-76-9544Mfepbgg encounter procedureServices [facility] Work Phone: [facility]-XRay Main CampusStart: 04-30-2022 End: 28-25-5023Avpmlgwg ReferredSerSentara RMH Medical Center Senior Work Phone: [facility]-LA Family [facility] ServicesStart: 04-29-2022 End: 86-54-7297Dcrumvdbw department patient visitServices [facility] Work Phone: [facility]-Emergency RoomStart: 03-04-2022(Procedure) Erwin MiramontesC[facility] Clinic [facility] Medical OutPtStart: 03-04-2022 End: 36-11-8036supmhncexkDpelyh Fe Other [facility] [employer] Other Start: 02-19-2022 End: 58-35-8836mnjjuxmeilDyzhoa Zaky Other [employer] Other Start: 98-15-9840Oxfzfi outpatient visit 25 minutes Kyler MiramontesFPG Pain ManagementStart: 02-11-2022(Procedure) Erwin Miramontes [facility] OutPtStart: 02-11-2022 End: 54-42-3641mgmwinupzuKsckth Fe Other [employer] Other Start: 01-28-2022 End: 21-84-9096wkpslrbhqmZiztct Zaky Other [facility] [employer] Other Start: 06-02-5637Utoura consultation new/estab patient 60 minSherif ZajenniferFPG Pain ManagementStart: 01-14-2022 End: 67-39-0569ihctowldvpRrpvjb Elskens Other [facility] [employer] Other start: 87-35-4977Zjxxym outpatient new 30 minutes Girish Barnett [facility] NeurosurgeryStart: 01-21-2021 End: 21-65-4274Sncncshg ReferredServices Family Health Work Phone: -[facility] ServicesStart: 12-24-2020 End: 36-23-5531Dzcfire encounter procedureLaura Spasic-MRI Main CampusStart: 12-03-2020 End: 03-50-6364Iimbfww encounter procedureLaura Spasic-MRI Main CampusStart: 12-02-2020 End: 35-33-1883Cwxnrlo encounter procedureLaura Spasic-MRI [facility] HospitalStart: 11-05-2020 End: 05-05-8736Zellkxel ReferredLaura Spasic-LA [facility] ServicesStart: 10-22-2020 End: 50-79-1734Fqklsep encounter procedureLaura Spasic-XRay [facility] HospitalStart: 09-23-2020 End: 51-47-6814Gakslfe encounter procedureLaura Spasic-Lab [facility] Procedures DateProcedureProcedure DetailPerforming ClinicianStart: 13-52-7983Yzfacopy injection of lumbar spine using fluoroscopic guidanceLaura Spasic NITRATE OPERATOR-C Work Phone: Start: 35-23-8437I-ray of lumbar spine, four views Ajit Spasic NITRATE OPERATOR-C Work Phone: Start: 46-54-5331Mrplugoj tomography of abdomen and pelvis with contrastLaura Spasic NITRATE OPERATOR-C Work Phone: Start: 76-00-6721JF of thorax with contrastLaura Spasic NITRATE OPERATOR-C Work Phone: Start: 76-15-5524Uniaverqw A virus antibody, IgM type Ajit Spasic NITRATE OPERATOR-C Work Phone: Comment on above:A negative anti-HAV IgM result suggests no recent orcurrent HAV infection.Performed at: [address] [place], [place] [id number] Director: Daniel Wen PhD, Phone: [phone]: 23-68-6965Wmxxziaze B core antibody measurementLaura Spasic NITRATE OPERATOR-C Work Phone: Start: 12-61-6680Eghoh immunodeficiency virus antibody testLaura Spasic NITRATE OPERATOR-C Work Phone: Comment on above:HIV-1/HIV-2 antibodies and HIV-1 p24 antigen were NOTdetected. There is no laboratory evidence of HIV infection.HIV NegativePerformed at: [id number] [place], [place] [id number] Director: Daniel Wen PhD, Phone: [phone]: 03-06-2025 Duplex scan of lower limb veinsLaura Spasic NITRATE OPERATOR-C Work Phone: Start: 38-10-8004Fkjptkemjmivpik of bilateral kidneys Ajit Spasic NITRATE OPERATOR-C Work Phone: Start: 13-40-3696Ctfta cultureLaura Spasic NITRATE OPERATOR-C Work Phone: Start: 67-97-2122Ynwbn cultureLaura Spasic NITRATE OPERATOR-C Work Phone: Start: 34-78-1848Poxci cultureLaura Spasic NITRATE OPERATOR-C Work Phone: Start: 00-67-1229Eqsucvpkd mammography of bilateral breastsLaura Spasic NITRATE OPERATOR-C Work Phone: Start: 18-93-3711Pjvvl cultureLaura Spasic NITRATE OPERATOR-C Work Phone: Start: 41-62-0095Yvhcn cultureLaura Spasic NITRATE OPERATOR-C Work Phone: Start: 42-40-3973Bxeuw chest X-rayNP-C Ajit Spasic Work Phone: Start: 35-64-0758Vakgjmer tomography of abdomen and pelvis with contrastNP-C Ajit Spasic Work Phone: Start: 86-29-8380MQ lumbar spine wo conNP-C Ajit Spasic Work Phone: Start: 63-78-5505Lukqjxfju colonoscopyNP-C Ajit Spasic Work Phone: Start: 94-95-2431B-ray of lumbar spine, four viewsNP-C Ajit Spasic Work Phone: Start: 11-79-9155Dnsopslpr of local anesthetic into sacroiliac jointNP-C Ajit Spasic Work Phone: Start: 61-31-4554Xoaorcyjsmfnzmk of right breastNP-C Ajit Spasic Work Phone: Start: 43-83-0176Frjvxmadb mammography of bilateral breastsNP-C Ajit Millanc Work Phone: Start: 10-41-7458Tcahoulngiotuaa of bilateral kidneys NITRATE OPERATOR-C Ajit Pettit Work Phone: Start: 04-89-4410Rvcll culture for bacteriaNP-C Ajit Pettit Work Phone: Start: 79-65-1573Rhklliib tomography of abdomen and pelvis with contrastNP-C Ajit Pettit Work Phone: Start: 83-04-1095Zuikx hysterectomy via vaginal approachNP-Jorge Pettit Work Phone: Start: 45-38-1267ThvzeythqeipBJ [facility] [employer] [facility] Work Phone: Start: 87-76-3686Lpvegesij of local anesthetic into sacroiliac jointNP-C Ajit Millanc Work Phone: Start: 76-49-8528Fucwx cultureTemple Community Hospital [employer] [facility] Work Phone: Start: 96-84-4141Niyefkaqpjz of thoracic spineNP-Jorge Pettit Work Phone: Start: 84-32-3275Nvzpgufm injection of lumbar spine using fluoroscopic guidanceNP-C Ajit Millanc Work Phone: Start: 28-00-5114Iwxsn cultureNP-C Ajit Millanc Work Phone: Start: 72-00-9888Gfcuhwfoo of spinal epidural space Services [facility] Work Phone: Start: 60-87-0755Wbjjy cultureServices [facility] Work Phone: Start: 24-60-7923M-ray of cervical spineServices [facility] Work Phone: Start: 44-54-8572Scjqovtxlusxanapa with dilation of urethral strictureVia Christi Hospital Start: 21-38-6147CLG of headServmonroe county hospital [place] Work Phone: Start: 03-81-6795Vxtsshpzmwve echographySummit Medical Center [employer] Work Phone: Start: 05-26-0950Tcqcuy echographyHunt Memorial Hospital [employer] Work Phone: Start: 61-30-1714OO scan of bladderSergrand view health [place] Work Phone: Start: 50-00-0210Iwfzupkr tomography of abdomen and pelvis with contrastScohen children's medical center [place] Work Phone: Start: 93-08-0566J-ray of right kneeScohen children's medical center [place] Work Phone: Start: 31-88-1349G-ray of left ankleSergrand view health [place] Work Phone: Start: 99-69-6357DJK of left shoulderLaura Spasic Start: 21-16-3127IG lumbar spine wo conLaura SpasicStart: 20-94-9517TMP of cervical spine with contrastLaura SpasicStart: 17-14-0297KNR of headLaura Spasic Start: 71-79-6524V-ray of lumbar spine, two or three viewsLaura SpasicStart: 61-66-8520EU hip LT 2VLaura SpasicStart: 11-85-5305Icrnkzxbnem of cervical spine Ajit SpasicAppendectomyCarterStyle [employer] Blood culture for bacteria, including anaerobic screen Services [employer] Phone: Blood culture for bacteria, including anaerobic screen Services [employer] Phone: Breast structure (body structure)Joshua Dattch Comment on above:biopsyCholecystectomyJoshua Dattch H/O: hysterectomyS/P hysterectomyNP-C Ajit SpasiContinuing Education [employer] Work Phone: H/O: hysterectomyStatus post hysterectomyNP-C Ajit Pettit Work Phone: Partial hysterectomyGregory COOK Urine [facility] Work Phone: Plan of Treatment DateCare ActivityDetailAuthorStart: 83-60-9638OkpioinumAshtabula County Medical Center Start: 20-66-1614L-ray of lumbar spine, four viewsXR lumbar spine AP/LAT/FLX/EXT [facility] Hospitaltart: 49-55-4685FQ Lumbar spine 4 Views [facility] Hospitaltart: 30-47-1942CukjgehodMercy Health Perrysburg Hospitaltart: 71-82-2688Npgpmvn referralMiddletown Hospital Work Phone: Start: 08-94-5010Hpachhhh identified in Urine by CultureUrine [facility] Akrontart: 81-50-5653Zpcyk [facility] Hospitaltart: 36-98-4835Xlwrwkld identified in Urine by CultureUrine [facility] Akrontart: 02-12-2025 Urine cultureMercy Health Perrysburg Hospitaltart: 45-59-3566Undgn culture [facility] Hospitaltart: 86-73-6469Ineynwew identified in Urine by CultureUrine [facility] Akrontart: 07-24-2024 Ultrasonography of right breastUS breast RT limitedMercy Health Perrysburg Hospitaltart: 97-81-3542MqhkogpazMercy Health Perrysburg Hospitaltart: 03-01-2024 [facility] Hospitaltart: 86-91-8400Znozeaal identified in Blood by CultureMercy Health Perrysburg Hospitaltart: 62-83-6729VsjejravjMercy Health Perrysburg Hospitaltart: 51-81-6149Xyomf cultureStool [facility] Akrontart: 21-26-7306TujkhndelMercy Health Perrysburg Hospitaltart: 89-33-4532Cwosajgx to obstetricianMercy Health Perrysburg Hospitaltart: 94-59-6205Gucvtltt admissionMercy Health Perrysburg Hospitaltart: 10-08-2023 [facility] Hospitaltart: 19-08-3640Gvtkqdsu to clinical geodetic technician [facility] Hospitaltart: 11-39-5897Pdahpdlj admissionMercy Health Perrysburg Hospitaltart: 99-37-5725AvoxniqqlMercy Health Perrysburg Hospitaltart: 07-13-2023 End: 33-22-0584DyfxixoxaMercy Health Perrysburg Hospitaltart: 78-08-4931BewdvbmtzMercy Health Perrysburg Hospitaltart: 73-86-3132Urccvhlk identified in Urine by Culture Urine CultureMercy Health Perrysburg Hospitaltart: 54-19-3489Wmnhk culture Urine CultureMercy Health Perrysburg Hospitaltart: 83-41-4835ZfxapgjwcMercy Health Perrysburg Hospitaltart: 84-02-5895Xrsfppaq identified in Urine by Culture [facility] Hospitaltart: 65-46-0949XahyyplbqMercy Health Perrysburg Hospitaltart: 27-73-4244Lllthkwk identified in Urine by CultureMercy Health Perrysburg Hospitaltart: 06-02-2022 End: 93-17-2880Ccksawkt ReferredDeparted ReferredParkview Health- [facility] HospitalStart: 01-67-3464Wlsjevpvzy RecurringIron deficiency [facility]-Cancer CenterStart: 99-07-4477UeuemkfybMercy Health Perrysburg Hospitaltart: 05-07-2022 End: 26-15-0804Qjlupok encounter procedureDeparted [facility]-Lab Main CampusStart: 50-74-4020Dgohiazt tomography of abdomen and pelvis with contrastCT abdomen pelvis w [facility] Start: 05-01-2022 End: 58-19-6857Emxiqwkwb department patient visitDeparted EmergencyNorwalk Memorial Hospital Ctr-Emergency RoomAngiotensin converting enzyme [Enzymatic activity/volume] in Serum or PlasmaAshtabula County Medical CenterAtopobium vaginae DNA [Presence] in Vaginal fluid by NAYELY with probe detectionAshtabula County Medical CenterBacterial vaginosis associated bacterium 2 DNA [Presence] in Vaginal fluid by NAYELY with probe detectionAshtabula County Medical Center Chlamydia trachomatis rRNA [Presence] in Cervix by NAYELY with probe detection [facility] CenterComprehensive metabolic 2000 panel - Serum or PlasmaAshtabula County Medical CenterCT Abdomen and Pelvis W contrast IV [facility] Medical CenterCT Chest W contrast IVFEast Ohio Regional HospitalGlucose measurement estimated from glycated hemoglobinFirelands Regional Medical CenterGlucose measurement estimated from glycated hemoglobin [facility] CenterHemoglobin A1c/Hemoglobin.total in Blood [facility] CenterHepatitis A virus antibody, IgM typeAshtabula County Medical CenterHepatilafollette medical center B core antibody measurementAshtabula County Medical CenterHebarstow community hospital B virus surface Ab [Presence] in SerumAshtabula County Medical CenterHudundas papilloma virus 16+18+31+33+35+39+45+51+52+56+58+59+66+68 DNA [Presence] in Cervix by Probe with signal amplificationAshtabula County Medical CenterHudundas papilloma virus 16+18+31+33+35+39+45+51+52+56+58+59+68 DNA [Presence] in Cervix by Probe withsignal amplificationAshtabula County Medical CenterInterferon gamma assayAshtabula County Medical CenterMegasphaera sp type 1 DNA [Presence] in Vaginal fluid by NAYELY with probe detectionAshtabula County Medical CenterMR Lumbar spine WO contrastAshtabula County Medical CenterMycobacterium tuberculosis stimulated gamma interferon [Interpretation] in Blood QualitativeAshtabula County Medical CenterMycobacterium tuberculosis stimulated gamma interferon release by CD4+ and CD8+ T-cells [Units/volume] corrected for background in [facility] HospitalMycobacterium tuberculosis tuberculin stimulated gamma interferon [Presence] in BloodAshtabula County Medical CenterNeisseria gonorrhoeae rRNA [Presence] in Cervix by NAYELY with probe detectionAshtabula County Medical CenterPatient EducationNorwalk Memorial Hospital Ctr Work Phone: Patient referralNorwalk Memorial Hospital Ctr Work Phone: Reagin Ab [Presence] in Serum by RPKettering Health TroyRheumatoid factor [Units/volume] in Serum or PlasmaAshtabula County Medical CenterXR Hip - left 2 [facility] HospitalXR Hip - right 2 [facility] HospitalXR Lumbar spine 4 Views [facility] Immunizations Immunization DateImmunizationNotesCare WudzyrhwDnurwoyh16-54-0586UTUPI-89 mRNA, Comirnaty (Pfizer)NA [facility]icsPacific[facility] Service Work Phone: [facility]11-26-2021COVID-19 mRNA, Comirnaty (Pfizer)NA [facility] [employer] Work Phone: [facility] CenterNEGATED: Highlighted row has not occurred!94-29-0964diciflmxh virus vaccine, live, attenuated, for intranasal useVia Christi Hospital [facility] Ana Paula Kirkland DatePayer CategoryPayerPolicy ID04-23-2025Medicaid [id number] [id number]-wmt [id number] 2..1.829516.3.57[id number] 2..1.332010.3.579.2.26333-41-8254Ywlphkw0086175 2..1.419814.3.57[id number] 2..1.875952.3.57[id number] 2..1.530354.3.57[id number] 2..1.025319.3.57[id number] 2..1.319263.3.579.2.[id number] 2..1.245619.3.579.[id number] 2..1.824957.3.579.2.[id number] 2..1.539775.3.579.[id number] 2..1.349656.3.579.2.24247-65-8860Xiyxwdv09084772 2..1.238925.3.57[id number] 2..1.217544.3.579.[id number] 2..1.798307.3.57[id number]-[id number]-[id number] 2.0.1.9235[id number] 2.0.1.011467.3.579.2.531 [id number] 2.840.1.6[id number] 2.840.1.3[id number] 2.16.840.1.503625.3.579.2.531 [id number] 2.16.840.1.359[id number] 2.16.840.1.627214.3.579.2.558Zfgwcsn60517757 2.16.840.1.258127.3.579.2.531 [id number] 2.16.840.1.83375[id number] 2.16.840.1.5[id number] 2.16.840.1.758660.3.579.2.531 [id number] 2.16.840.1.1[id number] 2.16.840.1.7650[id number] 2.16.840.1.097650.3.579.2.531 Social History DateTypeDetailFacilityStart: 09-25-2019 End: 75-62-2338Drcnvqn smoking status NHISSmoker (finding)[facility] Hospitaltart: 45-69-8667Peg Assigned At [facility] Hospitalex Assigned At [facility] Jacksontart: 07-31-2022 End: 37-03-8324Mkulsbt smoking statusHeavy tobacco smoker (finding)[facility] [place]Start: 03-01-2024 End: 73-01-8988Wsjdess smoking status NHISCurrent some day smokerMercy Health Perrysburg Hospitalexual [facility] Start: 01-15-2010 End: 54-21-6733VlgFqklbd (finding)[facility]: 03-08-2025 End: 83-74-0583Ivmxhvr smoking status NHISSmokes tobacco daily (finding) [facility] CenterTobacco smoking statusNeverExec[facility] [facility] Goals DatePatient GoalDesired Activity/State Functional Status [id number] StatusN/[facility]24Functional StatusN/[facility] Functional status[facility] at [facility] Work Phone: [phone] StatusN/[facility] [id number] StatusN/[facility]22[facility]N/[facility] Mental Status [id number] functionCognitive Status Patient at [facility] Work Phone: Clinical Notes 01-14-2022 to 06-25-2025 Note Date & [id number] Hospital Discharge instructions Patient Education 06/25/2025 13:58:10 Urethral Stricture Urethral Stricture Urethral stricture is when the tube that drains pee (urine) from the bladder out of the body (urethra) becomes too narrow. The urethra can become narrow because of scar tissue, infection, surgery, colton injury. This can make it difficult to pee (urinate). In females, the urethra opens above the vaginal opening. In males, the urethra opens at the tip of the penis, and the urethra is much longer than it is in females. Because of the length of the male urethra, urethral stricture is much more common in males. What are the causes? In males and females, common causes of urethral stricture include: Urinary tract infection (UTI). Sexually transmitted infection (STI). Using a soft tube in the urethra to drain pee from the bladder (urinary catheter). Urinary tract surgery. In males, common causes of urethral stricture include: A severe injury to the pelvis. Prostate surgery. Injury to the penis. In many cases, the cause of urethral stricture is not known. What increases the risk? You are more likely to develop this condition if you: Are male. Males who have had prostate surgery are at risk of developing this condition. Use a urinary catheter. Have had urinary tract surgery. What are the signs or symptoms? The main symptom of this condition is trouble peeing. This may cause decreased pee flow, dribbling,or spraying of pee. Other symptom of this condition may include: Frequent UTIs. Blood in the pee. Pain when peeing. Swelling of the penis in males. Not being able to pee. How is this diagnosed? This condition may be diagnosed based on: Your medical history and a physical exam. Tests of your pee to check for infection or bleeding. X-rays. Ultrasound. Retrograde urethrogram. With this test, a dye is injected into the urethra and then an X-ray is taken. Urethroscopy. This is when a thin tube with a light and camera on the end (urethroscope) is used tolook at the urethra. A CT scan or MRI. How is this treated? This condition is treated with surgery or other procedures. The type of surgery that you have depends on the severity of your condition. You may have: Urethral dilation. In this procedure, the narrow part of the urethra is stretched open (dilated) with dilating instruments or a small balloon. Urethrotomy. In this procedure, a urethroscope is placed into the urethra, and the narrow part of the urethra is cut open with a surgical blade or laser inserted through the urethroscope. Urethroplasty. In this procedure, an incision is made in the urethra and the narrow part is removed. Then, the urethra is reconstructed. Follow these instructions at home: Take yaeb-dqb-uphvcge and prescription medicines only as told by your health care provider. If you were prescribed antibiotics, take them as told by your provider. Do not stop using the antibiotic even if you start to feel better. Drink enough fluid to keep your pee pale yellow. Keep all follow-up visits. Your provider will check your healing and adjust your treatment plan as needed. Contact a health care provider if: You have frequent peeing or you are only peeing small amounts often. You feel the need to pee urgently. You have pain or burning when you pee. Your pee smells bad or unusual. Your pee is bloody or cloudy. You have pain in your lower abdomen or back. Your genital area is swollen, bruised, or discolored. This includes: ?The penis, scrotum, and inner thighs for males. ?The outer genital organs (vulva) and inner thighs for females. You have a fever. You develop swelling in your legs. Get help right away if: You cannot pee. You have trouble breathing. These symptoms may [...] with your health care provider. Document Revised: 07/15/2023 Document Reviewed: 07/15/2023 [employer] Patient Education 2023 [employer] Follow Up Care 05/29/2025 09:15:02 With:JORDANA BALDERAS, Joshua Dempsey, URL Address: [address] [place] [address]- When: Unknown [facility] [place] [id number] NotePatient Education Urology Urethral Stricture Urethral stricture is when the tube that drains pee (urine) from the bladder out of the body (urethra) becomes too narrow. The urethra can become narrow because of scar tissue, infection, surgery, colton injury. This can make it difficult to pee (urinate). In females, the urethra opens above the vaginal opening. In males, the urethra opens at the tip of the penis, and the urethra is much longer than it is in females. Because of the length of the male urethra, urethral stricture is much more common in males. What are the causes? In males and females, common causes of urethral stricture include: ??? Urinary tract infection (UTI). ??? Sexually transmitted infection (STI). ??? Using a soft tube in the urethra to drain pee from the bladder (urinary catheter). ??? Urinary tract surgery. In males, common causes of urethral stricture include: ??? A severe injury to the pelvis. ??? Prostate surgery. ??? Injury to the penis. In many cases, the cause of urethral stricture is not known. What increases the risk? You are more likely to develop this condition if you: ??? Are male. Males who have had prostate surgery are at risk of developing this condition. ??? Use a urinary catheter. ??? Have had urinary tract surgery. What are the signs or symptoms? The main symptom of this condition is trouble peeing. This may cause decreased pee flow, dribbling,or spraying of pee. Other symptom of this condition may include: ??? Frequent UTIs. ??? Blood in the pee. ??? Pain when peeing. ??? Swelling of the penis in males. ??? Not being able to pee. How is this diagnosed? This condition may be diagnosed based on: ??? Your medical history and a physical exam. ??? Tests of your pee to check for infection or bleeding. ??? X-rays. ??? Ultrasound. ??? Retrograde urethrogram. With this test, a dye is injected into the urethra and then an X-ray istaken. ??? Urethroscopy. This is when a thin tube with a light and camera on the end (urethroscope) is used to look at the urethra. ??? A CT scan or MRI. How is this treated? This condition is treated with surgery or other procedures. The type of surgery that you have depends on the severity of your condition. You may have: ??? Urethral dilation. In this procedure, the narrow part of the urethra is stretched open (dilated) with dilating instruments or a small balloon. ??? Urethrotomy. In this procedure, a urethroscope is placed into the urethra, and the narrow part of the urethra is cut open with a surgical blade or laser inserted through the urethroscope. ??? Urethroplasty. In this procedure, an incision is made in the urethra and the narrow part is removed. Then, the urethra is reconstructed. Follow these instructions at home: ??? Take vgyy-pcr-umdqlqa and prescription medicines only as told by your health care provider. ??? If you were prescribed antibiotics, take them as told by your provider. Do not stop using the antibiotic even if you start to feel better. ??? Drink enough fluid to keep your pee pale yellow. ??? Keep all follow-up visits. Your provider will check your healing and adjust your treatment aleksandra needed. Contact a health care provider if: ??? You have frequent peeing or you are only peeing small amounts often. ??? You feel the need to pee urgently. ??? You have pain or burning when you pee. ??? Your pee smells bad or unusual. ??? Your pee is bloody or cloudy. ??? You have pain in your lower abdomen or back. ??? Your genital area is swollen, bruised, or discolored. This includes: ? The penis, scrotum, and inner thighs for males. ? The outer genital organs (vulva) and inner thighs for females. ??? You have a fever. ??? You develop swelling in your legs. Get help right away if: ??? You cannot pee. ??? You have trouble breathing. These symptoms may [...] with your health care provider. Document Revised: 07/15/2023 Document Reviewed: 07/15/2023 [email or web address] Patient Education ? 2023 [employer].[facility] 06-11-2025 NoteED Patient Education Note Infectious Disease Otitis Externa Otitis externa is an infection of the outer ear canal. The outer ear canal is the area between the outside of the ear and the eardrum. Otitis externa is sometimes called swimmer's ear. What are the causes? Common causes of this condition include: ??? Swimming in dirty water. ??? Moisture in the ear. ??? An injury to the inside of the ear. ??? An object stuck in the ear. ??? A cut or scrape on the outside of the ear or in the ear canal. What increases the risk? You are more likely to develop this condition if you go swimming often. What are the signs or symptoms? The first symptom of this condition is often itching in the ear. Later symptoms of the condition include: ??? Swelling of the ear. ??? Redness in the ear. ??? Ear pain. The pain may get worse when you pull on your ear. ??? Pus coming from the ear. How is this diagnosed? This condition may be diagnosed by examining the ear and testing fluid from the ear for bacteria and funguses. How is this treated? This condition may be treated with: ??? Antibiotic ear drops. These are often given for 10?14 days. ??? Medicines to reduce itching and swelling. Follow these instructions at home: ??? If you were prescribed antibiotic ear drops, use them as told by your health care provider. Do not stop using the antibiotic even if you start to feel better. ??? Take mtpd-pgl-kbidhtx and prescription medicines only as told by your health care provider. ??? Avoid getting water in your ears as told by your health care provider. This may include avoiding swimming or water sports for a few days. ??? Keep all follow-up visits. This is important. How is this prevented? Keep your ears dry. Use the corner of a towel to dry your ears after you swim or bathe. ??? Avoid scratching or putting things in your ear. Doing these things can damage the ear canal or remove the protective wax that lines it, which makes it easier for bacteria and funguses to grow. ??? Avoid swimming in lakes, polluted water, or swimming pools that may not have enough chlorine. Contact a health care provider if: ??? You have a fever. ??? Your ear is still red, swollen, painful, or draining pus after 3 days. ??? Your redness, swelling, or pain gets worse. ??? You have a severe headache. Get help right away if: ??? You have redness, swelling, and pain or tenderness in the area behind your ear. Summary ??? Otitis externa is an infection of the outer ear canal. ??? Common causes include swimming in dirty water, moisture in the ear, or a cut or scrape in the ear. ??? Symptoms include pain, redness, and swelling of the ear canal. ??? If you were prescribed antibiotic ear drops, use them as told by your health care provider. Do not stop using the antibiotic even if you start to feel better. This information is not intended to replace advice given to you by your health care provider. Make sure you discuss any questions you have with your health care provider. Document Revised: 12/03/2021 Document Reviewed: 12/03/2021 [employer] Patient Education ? 2023 [employer].[facility] 05-29-2025 Hospital Discharge instructions Patient Education 05/29/2025 09:04:16 Urethral Dilation Urethral Dilation Urethral dilation is a procedure to stretch open (dilate) the urethra. The urethra is the tube thatdrains pee (urine) from the bladder out of the body. In females, the urethra opens above the vaginal opening. In males, the urethra opens at the tip of the penis. Urethral dilation is usually done to treat narrowing of the urethra (urethral stricture), which canmake it difficult to pee (urinate). Urethral strictures can be caused by scar tissue, infection, injury, or surgery. Urethral dilation widens the urethra so that you can pee normally. Urethral dilation is done through the opening of the urethra. There are no incisions made during the procedure. Tell a health care provider about: Any allergies you have. All medicines you are taking, including vitamins, herbs, eye drops, creams, and baut-svd-qwopgzl medicines. Any problems you or family members have had with anesthesia. Any bleeding problems you have. Any surgeries you have had. Any medical conditions you have. Whether you are or may be . What are the risks? Your health care provider will talk with you about risks. These may include: Bleeding. Infection. A return of urethral stricture, which requires repeating the dilation procedure or more surgery. Damage to the urethra, which may require reconstructive surgery. Allergic reactions to medicines. What happens before the procedure? Medicines Ask your provider about: Changing or stopping your regular medicines. These include any diabetes medicines or blood thinnersyou take. Taking medicines such as aspirin and ibuprofen. These medicines can thin your blood. Do not take them unless your provider tells you to. Taking fgzu-lco-svxrefk medicines, vitamins, herbs, and supplements. General instructions Follow instructions from your provider about what you may eat and drink. If you will be going home right after the procedure, plan to have a responsible adult: ?Take you home from the hospital or clinic. You will not be allowed to drive. ?Care for you for the time you are told. Ask your provider: ?How your surgery site will be marked. ?What steps will be taken to help prevent infection. These steps may include: ?Removing hair at the surgery site. ?Washing skin with a soap that kills germs. ?Taking antibiotics. What happens during the procedure? An IV may be inserted into one of your veins. You may be given: ?A local anesthetic to numb your urethral opening. This will be applied as a gel that will also lubricate the opening of the urethra. ?A sedative. This helps you relax. ?Anesthesia. This keeps you from feeling pain. It will make you fall asleep for surgery. A thin tube with a light and camera on the end (cystoscope) will be inserted into your urethra. Your urethra will be rinsed (irrigated) with a germ-free (sterile) water solution. Narrow parts of your urethra will be stretched open using a dilator tool. Your surgeon will start with a very thin dilator, then use wider dilators as needed. A thin tube with an inflatable balloon on the tip may be inserted into your urethra. The balloon may be inflated to help stretch your urethra open. The balloon may be coated with a medicine to help the urethra stay open longer. Your urethra will be irrigated. A catheter will be inserted into your bladder at the end of the procedure. The procedure may vary among providers and hospitals. What happens after the procedure? After the procedure, it is common to have: ?Burning pain when peeing. ?Blood in your pee. ?A need to pee frequently. You will be asked to pee before you leave the hospital or clinic. Your pee flow should improve within a few days. You may have a catheter in your bladder for 2 3 days following your procedure. Follow these instructions at home: Medicines Take ujzq-jau-wkdiskw and prescription medicines only as told by your provider. If you were prescribed antibiotics, take them as told by your provider. Do not stop using the antibiotic even if you start to feel better. Ask your provider if the medicine prescribed to you: ?Requires you to avoid driving or using machinery. ?Can cause constipation. You may need to take these actions to prevent or treat constipation: ?Take kbbm-pup-goxhcjz or prescription medicines. ?Eat foods that are high in fiber, such as beans, whole grains, and fresh fruits and vegetables. ?Limit foods that are high in fat and processed sugars, such as fried or sweet foods. General instructions If you were given a sedative during the procedure, it can affect you for several hours. Do not drive or operate machinery until your provider says that it is safe. If you were sent home with a soft tube (catheter) to help keep your urethra open, follow your provider's instructions about how and when to use it. Drink enough fluid to keep your pee pale yellow. Return to your normal activities as told by your provider. Ask your provider what activities are safe for you. Keep all follow-up visits. Your provider will check your healing and adjust your treatment plan as needed. Contact a health care provider if: Your pee is cloudy and smells bad. You develop new bleeding when you pee. You pass blood clots when you pee. You have pain that does not get better with medicine. You have a fever. Your genital area is swollen, bruised, or discolored. This includes: ?The penis, scrotum, and inner thighs for males. ?The outer genital organs (vulva) and inner thighs for females. Get help right away if: You develop new bleeding that does not stop. You cannot pee. Your catheter stops draining pee. You cannot pee after your catheter is removed. These symptoms may be an emergency. Get help right away. Call 911. Do not wait to see if the symptoms will go away. Do not drive yourself to the hospital. This information is not intended to replace advice given to you by your health care provider. Make sure you discuss any questions you have with your health care provider. Document Revised: 07/15/2023 Document Reviewed: 07/15/2023 [employer] Patient Education 2023 [employer]. 05/29/2025 09:04:12 Cystoscopy Cystoscopy Cystoscopy is a procedure that is used to help diagnose and sometimes treat conditions that affect the lower urinary tract. The lower urinary tract includes the bladder and the urethra. The urethra is the tube that drains urine from the bladder. Cystoscopy is done using a thin, tube-shaped instrument with a light and camera at the end (cystoscope). The cystoscope may be hard or flexible, depending on the goal of the procedure. The cystoscope is inserted through the urethra, into the bladder. Cystoscopy may be recommended if you have: Urinary tract infections that keep coming back. Blood in the urine (hematuria). An inability to control when you urinate (urinary incontinence) or an overactive bladder. Unusual cells found in a urine sample. A blockage in the urethra, such as a urinary stone. Painful urination. An abnormality in the bladder found during an intravenous pyelogram (IVP) or CT scan. Cystoscopy may also be done to remove a sample of tissue to be examined under a microscope (biopsy). Tell a health care provider about: Any allergies you have. All medicines you are taking, including vitamins, herbs, eye drops, creams, and pcbr-kjn-mhnbkba medicines. Any problems you or family members have had with anesthetic medicines. Any blood disorders you have. Any surgeries you have had. Any medical conditions you have. Whether you are or may be . What are the risks? Generally, this is a safe procedure. However, problems may occur, including: Infection. Bleeding. Allergic reactions to medicines. Damage to other structures or organs. What happens before the procedure? Medicines Ask your health care provider about: Changing or stopping your regular medicines. This is especially important if you are taking diabetes medicines or blood thinners. Taking medicines such as aspirin and ibuprofen. These medicines can thin your blood. Do not take these medicines unless your health care provider tells you to take them. Taking zipa-twa-metkgln medicines, vitamins, herbs, and supplements. Tests You may have an exam or testing, such as: X-rays of the bladder, urethra, or kidneys. CT scan of the abdomen or pelvis. Urine tests to check for signs of infection. General instructions Follow instructions from your health care provider about eating or drinking restrictions. Ask your health care provider what steps will be taken to help prevent infection. These steps may include: ?Washing skin with a germ-killing soap. ?Taking antibiotic medicine. Plan to have a responsible adult take you home from the hospital or clinic. What happens during the procedure? You will be given one or more of the following: ?A medicine to help you relax (sedative). ?A medicine to numb the area (local anesthetic). The area around the opening of your urethra will be cleaned. The cystoscope will be passed through your urethra into your bladder. Germ-free (sterile) fluid will flow through the cystoscope to fill your bladder. The fluid will stretch your bladder so that your health care provider can clearly examine your bladder riley. Your doctor will look at the urethra and bladder. Your doctor may take a biopsy or remove stones. The cystoscope will be removed, and your bladder will be emptied. The procedure may vary among health care providers and hospitals. What can I expect after the procedure? After the procedure, it is common to have: Some soreness or pain in your abdomen and urethra. Urinary symptoms. These include: ?Mild pain or burning when you urinate. Pain should stop within a few minutes after you urinate. This may last for up to 1 week. ?A small amount of blood in your urine for several days. ?Feeling like you need to urinate but producing only a small amount of urine. Follow these instructions at home: Medicines Take vfkc-ixp-kiuuwor and prescription medicines only as told by your health care provider. If you were prescribed an antibiotic medicine, take it as told by your health care provider. Do notstop taking the antibiotic even if you start to feel better. General instructions Return to your normal activities as told by your health care provider. Ask your health care provider what activities are safe for you. If you were given a sedative during the procedure, it can affect you for several hours. Do not drive or operate machinery until your health care provider says that it is safe. Watch for any blood in your urine. If the amount of blood in your urine increases, call your healthcare provider. Follow instructions from your health care provider about eating or drinking restrictions. If a tissue sample was removed for testing (biopsy) during your procedure, it is up to you to get your test results. Ask your health care provider, or the department that is doing the test, when yourresults will be ready. Drink enough fluid to keep your urine pale yellow. Keep all follow-up visits. This is important. Contact a health care provider if: You have pain that gets worse or does not get better with medicine, especially pain when you urinate. You have trouble urinating. You have more blood in your urine. Get help right away if: You have blood clots in your urine. You have abdominal pain. You have a fever or chills. You are unable to urinate. Summary Cystoscopy is a procedure that is used to help diagnose and sometimes treat conditions that affect the lower urinary tract. Cystoscopy is done using a thin, tube-shaped instrument with a light and camera at the end. After the procedure, it is common to have some soreness or pain in your abdomen and urethra. Watch for any blood in your urine. If the amount of blood in your urine increases, call your healthcare provider. If you were prescribed an antibiotic medicine, take it as told by your health care provider. Do notstop taking the antibiotic even if you start to feel better. This information is not intended to replace advice given to you by your health care provider. Make sure you discuss any questions you have with your health care provider. Document Revised: 06/03/2022 Document Reviewed: 05/02/2021 [employer] Patient Education 2023 Personal Medicine. Follow Up Care 02/22/2025 10:35:20 With:JORDANA BALDERAS, Joshua Dempsey, URL Address: [address] [address]- When: Unknown [facility] Ana Paula 08-26-2025 NotePatient Education Urology Urethral Dilation Urethral dilation is a procedure to stretch open (dilate) the urethra. The urethra is the tube thatdrains pee (urine) from the bladder out of the body. In females, the urethra opens above the vaginal opening. In males, the urethra opens at the tip of the penis. Urethral dilation is usually done to treat narrowing of the urethra (urethral stricture), which canmake it difficult to pee (urinate). Urethral strictures can be caused by scar tissue, infection, injury, or surgery. Urethral dilation widens the urethra so that you can pee normally. Urethral dilation is done through the opening of the urethra. There are no incisions made during the procedure. Tell a health care provider about: ??? Any allergies you have. ??? All medicines you are taking, including vitamins, herbs, eye drops, creams, and ceod-kxw-rhhnlqj medicines. ??? Any problems you or family members have had with anesthesia. ??? Any bleeding problems you have. ??? Any surgeries you have had. ??? Any medical conditions you have. ??? Whether you are or may be . What are the risks? Your health care provider will talk with you about risks. These may include: ??? Bleeding. ??? Infection. ??? A return of urethral stricture, which requires repeating the dilation procedure or more surgery. ??? Damage to the urethra, which may require reconstructive surgery. ??? Allergic reactions to medicines. What happens before the procedure? Medicines Ask your provider about: ??? Changing or stopping your regular medicines. These include any diabetes medicines or blood thinners you take. ??? Taking medicines such as aspirin and ibuprofen. These medicines can thin your blood. Do not take them unless your provider tells you to. ??? Taking vpaa-npp-rbglxwf medicines, vitamins, herbs, and supplements. General instructions ??? Follow instructions from your provider about what you may eat and drink. ??? If you will be going home right after the procedure, plan to have a responsible adult: ? Take you home from the hospital or clinic. You will not be allowed to drive. ? Care for you for the time you are told. ??? Ask your provider: ? How your surgery site will be marked. ? What steps will be taken to help prevent infection. These steps may include: ? Removing hair at the surgery site. ? Washing skin with a soap that kills germs. ? Taking antibiotics. What happens during the procedure? An IV may be inserted into one of your veins. ??? You may be given: ? A local anesthetic to numb your urethral opening. This will be applied as a gel that will also lubricate the opening of the urethra. ? A sedative. This helps you relax. ? Anesthesia. This keeps you from feeling pain. It will make you fall asleep for surgery. ??? A thin tube with a light and camera on the end (cystoscope) will be inserted into your urethra. ??? Your urethra will be rinsed (irrigated) with a germ-free (sterile) water solution. ??? Narrow parts of your urethra will be stretched open using a dilator tool. Your surgeon will start with a very thin dilator, then use wider dilators as needed. ??? A thin tube with an inflatable balloon on the tip may be inserted into your urethra. The balloon may be inflated to help stretch your urethra open. The balloon may be coated with a medicine to help the urethra stay open longer. ??? Your urethra will be irrigated. ??? A catheter will be inserted into your bladder at the end of the procedure. The procedure may vary among providers and hospitals. What happens after the procedure? After the procedure, it is common to have: ? Burning pain when peeing. ? Blood in your pee. ? A need to pee frequently. ??? You will be asked to pee before you leave the hospital or clinic. ??? Your pee flow should improve within a few days. ??? You may have a catheter in your bladder for 2?3 days following your procedure. Follow these instructions at home: Medicines ??? Take ducb-qcf-fxtrncl and prescription medicines only as told by your provider. ??? If you were prescribed antibiotics, take them as told by your provider. Do not stop using the antibiotic even if you start to feel better. ??? Ask your provider if the medicine prescribed to you: ? Requires you to avoid driving or using machinery. ? Can cause constipation. You may need to take these actions to prevent or treat constipation: ? Take sqdo-khz-tyxszgh or prescription medicines. ? Eat foods that are high in fiber, such as beans, whole grains, and fresh fruits and vegetables. ? Limit foods that are high in fat and processed sugars, such as fried or sweet foods. General instructions ??? If you were given a sedative during the procedure, it can affect you for several hours. Do not drive or operate machinery until your provider says that it is safe. ??? If you were sent home with a soft tube (catheter) (more content not included)...[facility]08-14-2025 Evaluation note* Diagnosis Onset Date Resolution Status Admit Date Seizure disorder acuteAugust 2024 9:27amChronic painacuteSeptember 2024 11:22amLumbar radiculopathyacuteSeptember 2024 11:22amLumbosacral spondylosisacute Smita 2024 11:22amSacroiliitisacuteSeptember 2024 11:22amChronic painacuteOctober 2024 10:19amHip pain, bilateralacuteOctober 2024 10:19amLumbar radiculopathyacuteOctober 2024 10:19amLumbosacral spondylosisacuteOctober 2024 10:19amChronic migraine without aura without status migrainosus, not intractableacuteOctober 2024 8:35amEncounter for medication monitoringacuteOctober 2024 8:35amEpidural lipomatosisacute August 01, 2025 8:35amSeizure disorderacuteOctober 2024 8:35am [facility] Work Phone: 1(507) 933-975208-06-2025 Evaluation note* Diagnosis Onset Date Resolution Status Admit Date Chronic migraine without aura without st atus migrainosus, not intractable acuteAugust 2024 9:06amEpidural lipomatosisacuteAugust 2024 9:06am Seizure disorderacuteAugust 2024 9:06amLeukocytosisacuteAugust 2024 9:53amSeizure disorderacuteAugust 2024 9:27amChronic painacuteSeptember 2024 11:22amLumbar radiculopathyacuteSeptember 2024 11:22am Lumbosacral spondylosisacuteSeptember 2024 11:22amSacroiliitisacute June 18, 2025 11:22amChronic painacuteOctober 2024 10:19amHip pain, bilateralacuteOctober 2024 10:19amLumbar radiculopathyacuteOctober 2024 10:19amLumbosacral spondylosisacuteOctober 2024 10:19amChronic migraine without aura without status migrainosus, not intractableacuteOctober 2024 8:35amEncounter for medication monitoringacuteOctober 2024 8:35amEpidural lipomatosisacuteOctober 2024 8:35amSeizure disorderacute August 01, 2025 8:35am [facility] Work Phone: 1(953) 929-975008-06-2025 [facility] [place] [address] Cancer Center Note Signed Patient: Rachel Mcgarry MR#: [id number] : 1980 Acct:[id number] Age/Sex: 45 / F Type: REG AMB [...] by PCR, JAK2 with reflex, BERTHA, RF, KAMILLA, chronic hepatitis panel, HIV, hepatitis C antibodies [...] surface antigen is negative hepatitis B surface antibodyis nonreactive. Hepatitis B core antibody total isnegative [...] 04/18/2025 revealed no clonal T-cell receptor gamma populationwas detected. This is with 89% certainty as this PCR technique may not detect all possible T-cell receptor gene rearrangements. If significant suspicion for clonality remains in the T-cell receptor beta with a test called a [id number] is recommended and if both are negative [...] - Elevated white blood cell count, unspecified, R61- Generalized hyperhidrosis LDH Lactate Dehydrogenase 4 Months D72.829 - Elevated white blood cell count, unspecified, R61 - Generalized hyperhidrosis T-Cell Gene Rearrangement, PCR 4 Months D72.829 - Elevated white blood cell count, unspecified, R61- Generalized hyperhidrosis Comprehensive Metabolic Panel 4 Months D72.829 - Elevated white blood cell count, unspecified, R61 - Generalized hyperhidrosis Patient Instructions: cbc,cmp,ldh,t-cell receptor rearrangement in 4 months return 4 months CHEMO PLAN No Active Chemotherapy History of Present Illness HPI Rachel is a 45-year-old nice female with past [...] been normal to mildly elevated anywhere from 3.7- 5.8 lately. The rest of the WBC differential revealed occasional intermittent absolute monocytosis with a monocyte count anywhere from 0.9-1.6 mildly elevatedandnormal eosinophils and basophils counts. CMP is unremarkable [...] since age 8. She has a history ofcervical cancer and history of endometriosis and endometrial polyps for that reason hysterectomy was done in September 2024. She also had colon polyps and had a colonoscopy in 09/05/2024 which revealed: 3 polyps removed and 9 mm submucosal nodule in the rectum with internal hemorrhoids. Pathology of the 3 colon polyps revealed tubular adenoma but negative for high-grade dysplasia. Pathology of the rectal submucosal nodule [...] by PCR, JAK2 with reflex, BERTHA, RF, KAMILLA, chronic hepatitis panel, HIV, hepatitis C antibodies [...] RF is normal 11.0 BERTHA is negative. HepatitisA IgM isnegative. Hepatitis B surface antigen is [...] the cell disorder may not show any immun ophenotypic abnormalities by flow cytometry it cannot be excluded to 35 flow. Correlation thereforewith clinical history and morphology is recommended. If T- cell lymphoproliferative disorder is suspected highly than the [...] 04/18/2025 revealed no clonal T-cell receptor gamma populationwas detected. This is with 89% certainty as this PCR technique may not detect all possible T-cell receptor gene rearrangements. If significant suspicion for clonality remains in the T-cell receptor beta with a test called a [id number] is recommended and if both are negative [...] No concerns voiced at time of intake. [facility] Medical History Medical History Leukocytosis Fibromyalgia History [...] Enrique Pratt MD DD/ [id number] Signed By: 05/09/25 1039 [facility]07-14-2025 Evaluation note* Diagnosis Onset Date Resolution Status Admit Date Leukocytosis acuteJuly 2024 1:55pmChronic migraine without aura without status migrainosus, not intractableacuteAugust 2024 9:06amEpidural lipomatosis acuteAugust 2024 9:06amSeizure disorderacuteAugust 2024 9:06am LeukocytosisacuteAugust 2024 9:53amSeizure disorderacuteAugust 2024 9:27amChronic painacuteSeptember 2024 11:22amLumbar radiculopathyacute June 18, 2025 11:22amLumbosacral spondylosisacuteSeptember 2024 11:22amSacroiliitisacuteSeptember 2024 11:22am [facility] Work Phone: 1(619) 171-836107-14-2025 Evaluation note* Diagnosis Onset Date Resolution Status Admit Date Leukocytosis acuteJuly 2024 1:55pmChronic migraine without aura without status migrainosus, not intractableacuteAugust 2024 9:06amEpidural lipomatosis acuteAugust 2024 9:06amSeizure disorderacuteAugust 2024 9:06am LeukocytosisacuteAugust 2024 9:53amSeizure disorderacuteAugust 2024 9:27amChronic painacuteSeptember 2024 11:22amLumbar radiculopathyacute June 18, 2025 11:22amLumbosacral spondylosisacuteSeptember 2024 11:22amSacroiliitisacuteSeptember 2024 11:22amChronic painacuteOctober 2024 10:19amHip pain, bilateralacuteOctober 2024 10:19amLumbar radiculopathyacuteOctober 2024 10:19amLumbosacral spondylosisacuteOctober 2024 10:19am [facility] Work Phone: 1(843) 956-223007-02-2025 Evaluation note* Diagnosis Onset Date Resolution Status Admit Date Leukocytosis acuteJuly 2024 9:39amLeukocytosisacuteJuly 2024 1:55pmChronic migraine without aura without status migrainosus, not intractableacuteAugust 2024 9:06amEpidural lipomatosisacuteAugust 2024 9:06amSeizure disorder acuteAugust 2024 9:06amLeukocytosisacuteAugust 2024 9:53amSeizure disorderacuteAugust 2024 9:27amChronic painacuteSeptember 2024 11:22amLumbar radiculopathyacuteSeptember 2024 11:22amLumbosacral spondylosisacuteSeptember 2024 11:22amSacroiliitisacuteSeptember 2024 11:22am [facility] Work Phone: 1(371) 270-996706-17-2025 Evaluation note* Diagnosis Onset Date Resolution Status Admit Date Lumbosacral spondylosis acuteJune 2024 8:25amTrochanteric bursitisacuteJune 2024 8:25am LeukocytosisacuteJuly 2024 9:39amLeukocytosisacuteJuly 2024 1:55pm Chronic migraine without aura without status migrainosus, not intractableacute [facility] 2024 9:06amEpidural lipomatosisacuteAugust 2024 9:06amSeizure disorderacuteAugust 2024 9:06amLeukocytosisacuteAugust 2024 9:53am Seizure disorderacuteAugust 2024 9:27amChronic painacuteSeptember 2024 11:22amLumbar radiculopathyacuteSeptember 2024 11:22amLumbosacral spondylosisacuteSeptember 2024 11:22amSacroiliitisacuteSeptember 2024 11:22am [facility] Work Phone: 1(608) 656-103906-11-2025 Evaluation note* Diagnosis Onset Date Resolution Status Admit Date Leukocytosis acuteJune 2024 8:35amLumbosacral spondylosisacuteJune 2024 8:25am Trochanteric bursitisacuteJune 2024 8:25amLeukocytosisacuteJuly 2024 9:39am [facility] Work Phone: 1(359) 145-800206-11-2025 Evaluation note* Diagnosis Onset Date Resolution Status Admit Date Leukocytosis acuteJune 2024 8:35amLumbosacral spondylosisacuteJune 2024 8:25am Trochanteric bursitisacuteJune 2024 8:25amLeukocytosisacuteJuly 2024 9:39amLeukocytosisacuteJuly 2024 1:55pm [facility] Work Phone: 1(507) 917-307906-11-2025 Evaluation note* Diagnosis Onset Date Resolution Status Admit Date Leukocytosis acuteJune 2024 8:35amLumbosacral spondylosisacuteJune 2024 8:25am Trochanteric bursitisacuteJune 2024 8:25amLeukocytosisacuteJuly 2024 9:39amLeukocytosisacuteJuly 2024 1:55pmChronic migraine without aura without status migrainosus, not intractableacuteAugust 2024 9:06amEpidural lipomatosisacuteAugust 2024 9:06amSeizure disorderacuteAugust 2024 9:06am [facility] Work Phone: 1(896) 283-799406-11-2025 Evaluation note* Diagnosis Onset Date Resolution Status Admit Date Leukocytosis acuteJune 2024 8:35amLumbosacral spondylosisacuteJune 2024 8:25am Trochanteric bursitisacuteJune 2024 8:25amLeukocytosisacuteJuly 2024 9:39amLeukocytosisacuteJuly 2024 1:55pmChronic migraine without aura without status migrainosus, not intractableacuteAugust 2024 9:06amEpidural lipomatosisacuteAugust 2024 9:06amSeizure disorderacuteAugust 2024 9:06amLeukocytosisacuteAugust 2024 9:53am [facility] Work Phone: 1(899) 673-411106-03-2025 [facility] [place] [address] [place] [address] Ultrasound Report Signed Patient: Rachel Mcgarry MR#: [id number] : 1980 Acct:[id number] Age/Sex: 45 / F ADM Date: 5 Loc: Room: Type: [facility] [facility] Attending Dr: Ajit DEJESUS Ordering Provider: [...] Goss MD,FACS,FSVS 03/06/2025 1:25 PM Dictation Location: [place] [address] Tech: Janet Krause Transcribed By: [facility] 03/06/25 1325 Dictated By: Marcio Goss MD 03/06/25 1325 Signed By: 03/06/25 1325 [facility] Work Phone: 1(742) 104-824506-03-2025 Radiology Diagnostic study [facility] [place] [address] [place] [address] Ultrasound Report Signed Patient: Rachel Mcgarry MR#: [id number] : 1980 Acct:[id number] Age/Sex: 45 / F ADM Date: 5 Loc: Room: Type: [facility] [facility] Attending Dr: Ajit DEJESUS Ordering Provider: OLEG Sharp Date of Service: 03/06/25 US/US renal BI: Recurrent UTI;Sensation of pressure in bladder area;Microsco Copies to: OLEG Sharp~ BILATERAL RENAL AND [...] Yañez M.D. 03/06/2025 12:58 PM Dictation Location: [place] [address] Tech: Janet Krause Transcribed By: ROSA MARIA 03/06/25 1258 Dictated By: Eda Yañez MD 03/06/25 1258 Signed By: 03/06/25 1258 [facility] Work Phone: 1(328) 785-461404-23-2025 Hospital Discharge instructions Patient Education 01/24/2025 12:25:32 Urinary Tract Infection, Adult, Wwdq-kg-Fyna Urinary Tract Infection, Adult A urinary tract [...] Follow these instructions at home: Medicines Take hcdx-gqw-qdgghiw and prescription medicines only as told by [...] provider. Document Revised: 04/27/2021 Document Reviewed: 05/02/2021 [employer] Patient Education 2023 Personal Medicine. Follow Up Care 01/24/2025 11:32:42 With:AJIT PETTIT Address: [address] [place] [address]- Business (1) When:01/27/2025 12:15:31 Comments:Call Dr for diagnosis based follow up [facility] 04-23-2025 Evaluation + Plan noteExtracted from:Title: ED NoteAuthor:Tanvir RIVAS, Hussein JoseDate:01/24/25 UTI symptoms (R39.9: Unspeci fied symptoms and signs involving the genitourinary system) Orders: ciprofloxacin, 500 mg = 1 tab(s), Oral, q12hr, X 3 day(s), # 6 tab(s), Refills(s) 0, Pharmacy: [facility]/pharmacy #[id number], 165, cm, 01/24/25 11:37:00 EDT, Height/Length Dosing, 70.1, kg, 01/24/25 11:37:00 EDT, Weight Dosing fluconazole, 300 mg = 2 tab(s), Tab, Oral, Once, Stop date 01/24/25 12:04:00 EDT, STAT, Start date 01/24/25 12:04:00 EDT, 01/24/25 12:04:00 EDT fluconazole, 150 mg = 1 tab(s), Oral, q7day, take on 01/31/2025, # 2 tab(s), Refills(s) 0, Pharmacy:[facility]/pharmacy #[id number], 165, cm, 01/24/25 11:37:00 EDT, Height/Length Dosing, 70.1, kg, 01/24/25 11:37:00 EDT, Weight Dosing ondansetron, 4 mg = 1 tab(s), Tab-Dis, Oral, Once, Stop date 01/24/25 12:04:00 EDT, STAT, Start date 01/24/25 12:04:00 EDT, 01/24/25 12:04:00 EDT ondansetron, 4 mg = 1 tab(s), Oral, q8hr, PRN Nausea/Vomiting, # 12 tab(s), Refills(s) 0, [id number], 165, cm, 01/24/25 11:37:00 EDT, Height/Length Dosing, 70.1, kg, 01/24/25 11:37:00 EDT, Weight Dosing phenazopyridine, 100 mg = 1 tab(s), Oral, TID, X 7 day(s), # 21 tab(s), Refills(s) 0, [id number], 165, cm, 01/24/25 11:37:00 EDT, Height/Length Dosing, 70.1, kg, 01/24/25 11:37:00 EDT, Weight Dosing phenazopyridine, 100 mg = 1 tab(s), Tab, Oral, Once, Stop date 01/24/25 12:04:00 EDT, STAT, Start date 01/24/25 12:04:00 EDT, 01/24/25 12:04:00 EDT [facility] 04-23-2025 NoteED Patient Education Note [...] these instructions at home: Medicines ??? Take rzyb-czq-cgjdtnb and prescription medicines only as told by [...] provider. Document Revised: 04/27/2021 Document Reviewed: 05/02/2021 [employer] Patient Education ? 2023 Personal Medicine.[facility] 07-09-2024 Hospital Discharge instructions Patient [...] that is high in altitude, where thinner, milk drier air causes more fluid loss. Doing [...] of fat or sugar. General instructions Take mcpq-hpz-zntiurx and prescription medicines only as told by [...] provider. Document Revised: 04/19/2023 Document Reviewed: 04/19/2023 [employer] Patient Education 2023 Personal Medicine. 07/09/2024 14:17:29 Viral Illness, Adult Viral Illness, [...] Medicines to treat symptoms. These can include lffn-xgy-nzrfzaa medicine for pain and fever, medicines for cough or congestion, and medicines for diarrhea. Antiviral medicines. These medicines are available only for certain types of viruses. Some viral illnesses can be prevented with vaccinations. A common example is the flu shot. Follow these instructions at home: Medicines Take wymo-opz-gbtoept and prescription medicines only as told by [...] and water are not available, use hand garage manager. Avoid touching your nose, eyes, and [...] provider. Document Revised: 10/06/2023 Document Reviewed: 07/21/2023 [employer] Patient Education 2023 Personal Medicine. Follow Up Care 07/09/2024 12:40:30 With:AJIT PETTIT Address: [address] [place] [address]- Business (1) When:07/12/2024 14:17:20 Comments:Call the office [...] you develop any new or worsening symptoms. [facility] 10-06-2024 NoteED Patient Education Note [...] Medicines to treat symptoms. These can include akup-gwg-qclmaor medicine for pain and fever, medicines for cough or congestion, and medicines for diarrhea. ? Antiviral medicines. These medicines are available only for certain types of viruses. Some viral illnesses can be prevented with vaccinations. A common example is the flu shot. Follow these instructions at home: Medicines ? Take fnpq-mev-elmicst and prescription medicines only as told by [...] and water are not available, use hand garage manager. ? Avoid touching your nose, eyes, and mouth, especial (more content not included)...[facility]10-06-2024 NoteED Patient Education Note Infectious [...] Medicines to treat symptoms. These can include rggb-gus-hafbbyt medicine for pain and fever, medicines for cough or congestion, and medicines for diarrhea. ? Antiviral medicines. These medicines are available only for certain types of viruses. Some viral illnesses can be prevented with vaccinations. A common example is the flu shot. Follow these instructions at home: Medicines ? Take uqcw-soe-dkgkgox and prescription medicines only as told by [...] and water are not available, use hand garage manager. ? Avoid touching your nose, eyes, and mouth, especial (more content not included)...[facility]10-06-2024 Evaluation + Plan note Extracted from:Title:ED NoteAuthor:Ambrose Cedeño DODate:07/09/24 Malaise (R53.81: Other malai se) Viral syndrome (B34.9: Viral infection, unspecified) Orders: Basic Metabolic Panel Beta hCG Qual CBC w/ Auto Diff ED Cardiac Monitoring eGFR Hepatic Function Panel Oxygen Saturation Oxygen Therapy PT & PTT Saline Lock Insert Troponin 0 Hr. Troponin 1 Hr. XR Chest Single View [facility] [facility]24 Discharge summary Author Salazar Cabrera [facility] October 09, 2023 6:42pmNote Date/TimeJan2023 1:22pm[address] [address] Discharge Summary Signed Patient: Rachel Mcgarry MR#: [id number] : 1980 Acct:[id number] Age/Sex: 43 / F Adm Date: 4 Loc: Room: 8L0583-[address]: Salazar Cabrera DO Copies to: Ajit Pettit, CHRISTINA Munoz, DO~ Providers Date of Admission: 10/08/23 Date of Discharge: 10/09/23 Discharging Provider: Salazar Cabrera Additional Discharging Provider: Salazar Cabrera Primary Care Provider: Ajit Pettit Consults: 10/07/23 23:27 Consult to Adult Hospitalist Routine 10/08/23 07:21 Consult to director of scout work Routine 10/09/23 06:50 Consult to Obstetrics Routine [...] outside hospital initially with abdominal pain. CT abdomenpelvis done at [facility] showed nonspecific hyperemia and thickening of the small bowel distally suggestive of enteritis but nonacute otherwise and no postoperative complications were noted. She was transferred to [facility] for evaluation by recent surgical team. She was noted to have elevated lactate and given IV hydration as well as Zosyn. Lactate resolved with hydration. She had repeat CTdone at [facility] with bloating and pain increasing with liquid intake unchangedfrom previous and no surgical complications again noted. BULKER services followed ongoing through hospital stay. She was also seen by psychiatry with increase insertraline due to reports of depression and suicidal thoughts, should follow-up with [facility] behavioral health after discharge. Date [...] % (Auto) 70.1, Lymph % (Auto) 16.5, [place] % (Auto) 9.5, Eos % (Auto) 3.5, Baso % (Auto) 0.4, Nucleat RBC Rel Count 0.1, Neut #(Auto) 9.6 H, Lymph # (Auto) 2.2, [place] # (Auto) 1.3 H, Eos # (Auto) [...] signed by Salazar Cabrera DO> 10/09/23 1842 [facility] Work Phone: 1(700) 886-768601-06-2024 Progress note Author BOGN Velez [facility] October 09, 2023 8:22amNote Date/TimeJan2023 8:[place] [id number] Progress Note Signed Patient: Rachel Mcgarry MR#: [id number] : 1980 Acct:[id number] Age/Sex: 43 / F Adm Date: 4 Loc: Room: [address] [place] [address] Type: ADM IN Attending Dr: Salazar Cabrera [...] % (Auto) 70.1, Lymph % (Auto) 16.5, [place] % (Auto) 9.5, Eos % (Auto) 3.5, Baso % (Auto) 0.4, Nucleat RBC Rel Count 0.1, Neut #(Auto) 9.6 H, Lymph # (Auto) 2.2, [place] # (Auto) 1.3 H, Eos # (Auto) 0.5 H, Baso # (Auto) 0.1 10/08/23 22:27: POC Glucose 194 10/08/23 18:21: POC Glucose 265, POC Glucose Comment Glu2: cleaned meter 10/08/23 13:07: POC Glucose 166, POC Glucose Comment Glu2: cleaned meter 10/08/23 10:31: Lactic Acid 1.9 10/08/23 08:20: Urine Color Granite A, Urine Appearance Turbid A, Urine pH 5.5, Ur Specific [place] > 1.050 H, Urine Protein 30 H, [...] <Electronically signed by BONG Velez> 10/09/23 0822 [facility] Work Phone: 1(529) 874-462101-05-2024 Consult note Author Teo crandall [facility] October 08, 2023 4:59pmNote Date/TimeJan2023 11:30[place] [address] Psychiatry Consult Note Signed with Piotr Patient: Rachel Mcgarry MR#: [id number] : 1980 Acct:[id number] Age/Sex: 43 / F Adm Date: 4 Loc: Room: [address] [place] [address] Type : ADM IN Attending Dr: Rosanna [...] attempt was at the age of 15, shetried to kill herself by cutting. She states that this time she began receiving psychiatric help. Patient was personally seen by me on the day of the encounter. I reviewed the history and performedthe brandon elements of the assessment. I formulated the planof care and confirmed this with the resident as noted below Patient reports a longstanding history of depression and PTSD. She states that she has 30 years continue to work on herself, says that currently she is going through a lot of family stress. She liveswith her of 2 years, along with 3 [...] has abdominal pain. Shesaid meds are not fullyeffective and we discussed increasing Zoloft to 150 [...] negative unless noted below or in HPI [facility] Medical History (Updated 10/08/23 @ 11:22 by [...] Color Urine Appearance Urine pH Ur Specific [place] Urine Protein Urine Glucose (UA) Urine Ketones Urine Occult Blood Urine Nitrite Ur Leukocyte Esterase Urine RBC Urine WBC 10/08/23 08:20 RBC Hgb Hct MCV MCH MCHC RDW Plt Count MPV Sodium Potassium Chloride Carbon Dioxide Anion Gap BUN Creatinine Calcium Total Bilirubin AST ALT Alkaline Phosphatase Total Protein Albumin Urine Color Granite A Urine Appearance Turbid A Urine pH 5.5 Ur Specific [place] > 1.050 H Urine Protein 30 H [...] to get in treatment, response to treatment, adherenceto treatment recommendations, and using skills. The patient's verbal consent was provided. Documented By: Teo Taylor MD 4 1113 Signed By: <Electronically signed by Teo Taylor MD> 10/08/23 5738 [facility] Work Phone: 1(214) 496-256701-05-2024 Progress note Author Salazar Cabrera [facility] October 08, 2023 4:41pmNote Date/TimeJan2023 11:44[place] [address] Hospitalist Progress Note Signed Patient: Rachel Mcgarry MR#: [id number] : 1980 Acct:[id number] Age/Sex: 43 / F Adm Date: 4 Loc: Room: [address] [place] [address] Type: ADM IN Attending Dr: Rosanna Grullon MD Copies to: ~ Date of Service: 10/08/2023 Subjective Subjective Narrative: Patient is seen and examined on follow-up. She continues to report abdominal discomfort generalizedbut above umbilicus more. She indicates she was tolerating ice chips however then drink some of thefluid that was in the cup with the ice chips and felt bloated and had increased pain after this. She doesindicate she is hungry and denies any nausea. Nursing staff indicates the patient had some diarrhea today, thought it was just gas but ended up being stool. She also had reported difficulty withurination earlier however this is kind of a chronic problem for her in the past, takes doxazosin. Patient also reports history of chronic leukocytosis has been worked up by hematology in the past andstates leukemia was ruled out. The patient indicates that since her surgery she has been eating anddrinking without difficulty, took only 3 days ofnarcotic pain medications and has had normal bowel movements since that time. She does indicate that she has IBS usually diarrhea and will tolerate symptoms for several days before taking Bentyl. She indicates she was seen for vaginal yeast infection and took a one-time pill postoperatively, denies any further vaginal discharge other than occasionalold bloody postop as anticipated. She denies chills [...] Lactic acidosis chronic leukocytosis -CT abdomen pelvis?from [facility] showed nonspecific hyperemia and thickening of small bowel distally suggestive of enteritis, nonacute otherwise, no postsurgical complications noted -Repeat CT abdomen pelvis?increasing bibasilar atelectasis, fatty liver, no bowel or urinary tract obstruction, no pelvic hematoma or significant free fluid, otherwise unchanged CT abdomen pelvis -Initial lactate 3.0--> 2.6--> 2.0--> 1.9 -Continue Zosyn, IVF. Afebrile. Scheduled dicyclomine. Symptom management -Advance diet to full liquid -BULKER following Depression -Seen by psychiatry with increase [...] plan. - Salazar Cabrera DO Documented By: Ilenehuong Lopez APRN 02/24 1144 Signed By: <Electronically signed by CHRISTINA Lopez> 10/08/23 1613 <Electronically signed by Salazar Cabrera DO> 10/08/23 1641 [facility] Work Phone: 1(310) 526-502301-05-2024 History and physical note Author BONG Velez [facility] October 08, 2023 1:07pmNote Date/TimeJan2023 7:21[place] [address] FUR REPAIR INSPECTOR History & Physical Signed with Addenda Patient: Rachel Mcgarry MR#: [id number] : 1980 Acct:[id number] Age/Sex: 43 / F Adm Date: 4 Loc: Room: [address] [place] [address] Type: ADM IN Attending Dr: Beltran Velez MD Copies to: Ajit Pettit, NITRATE OPERATOR-C BONG Motley~ ADDENDUM1 1300:Repeat CT scan abdomen /pelvis today without obstruction,pelvic abcess or hematoma Lactic acid,WBC and urine output have all improved. She is tolerating po without nausea/emesis -but some abdominal distension, without rebound. Psychiatrist has increased her SSRI and will follow up as out pt. Hospitalist feels that she has enteritis. She is cleared from the BULKER post op standpoint and we are signing off. Pt will be transferred to a medical floor for continued management. Addendum Documented By: BONG Velez 10/08/23 1307 Addendum Signed By: <Electronically signed by BONG Velez> 10/08/23 1307 Date of Service: 10/08/2023 BULKER - HPI History of Present Illness Chief Complaint: Abdominal pain with emesis Planned Procedure: S/P TLH 09/28/2023 HPI: Rachel presented to [facility] yesterday with abdominal pain/distension and emesis.Her lactic acid was3.0,WBS 20k in ER,Sodium [address] scan compatible with enteritis. She was transferred to [facility] for observation and treatment. Pt with Chronic leukocytosis as followed by hematology for 2 years Review of Systems Review of Systems All other systems reviewed & are negative unless noted below or in HPI [facility] Medical History (Updated 10/08/23 @ 11:22 by [...] Tablet) 1,000 mg PO Q6H [facility] Stop: 10/06/24 22:59 Dextrose (Dextrose 50% In [...] @ 150 mls/hr IV .Q6H40M [facility] Stop: 10/06/24 22:59 Last Admin: 10/08/23 01:10 Dose: 125 mls/hr Piperacillin Sod/Tazobactam Sod (Zosyn) 3.375 gm in 100 mls @ 200 mls/hr IV Q6HSCH Last Admin: 10/08/23 03:45 Dose: 200 mls/hr Ibuprofen (Ibuprofen 600 Mg Tablet) 600 mg PO Q6H [facility] Stop: 10/07/24 01:59 Last Admin: 10/08/23 03:32 Dose: Not Given Insulin Aspart (Insulin Aspart 300 Units/3 Ml Insuln.Pen) 0 units SUBCUT Q6HR [facility]; Protocol Stop: 10/07/24 05:59 Last Admin: 10/08/23 06:27 Dose: 1 units Ondansetron HCl (Ondansetron 4 Mg/2 Ml Vial) 4 mg IV-PUSH Q8H PRN PRN Reason: Nausea And Vomiting Stop: 10/06/24 22:53 Ondansetron HCl (Ondansetron Odt 4 Mg Tab.Rapdis) 4 mg PO Q8HR PRN PRN Reason: Nausea And Vomiting Stop: 10/06/24 22:53 BULKER - Exam Physical Exam Vital signs: Temp [...] Present normal affect, suicidal ideation and depressed BULKER - Results Laboratory Results - Last 48 hrs. 10/08/23 06:19: POC Glucose 168 10/08/23 00:15: Lactic Acid 2.6 H* 10/08/23 00:15: PHA Creatinine Clear 131.27, Sodium 133 L, Potassium 4.3, Chloride 102, Carbon Dioxide 21.0, Anion Gap 14.3, BUN 9, Creatinine 0.56 L, EstGFR (CKD-EPI) > 60.0, Glucose 208 H, Calcium 7.9 L, Total Bilirubin 0.5, AST 74 H, ALT 34, Alkaline Phosphatase 62, Total Protein 6.1 L, Albumin 3.7, Globulin 2.4, Albumin/Globulin Ratio 1.5 BULKER - A/P (1) Abdominal pain: Plan: Post [...] By: <Electronically signed by BONG Velez> 10/08/23 6576 [facility] Work Phone: 1(356) 884-813201-05-2024 Consult note Author Rosanna Grullon [facility] October 08, 2023 7:00amNote Date/TimeJan2023 1:06[place] [address] Hospitalist Consult Note Signed Patient: Rachel Mcgarry MR#: [id number] : 1980 Acct:[id number] Age/Sex: 43 / F Adm Date: 4 Loc: Room: [address] [place] [address] Type: ADM IN Attending Dr: Beltran Velez MD Copies to: MD Ajit Davis, NITRATE OPERATOR-C Namrata Munoz, BONG Frederick~ HPI DATE OF CONSULTATION: 10/08/23 REQUESTING PROVIDER: Beltran Velez Consult Narrative Reason for Consult: elevated lactic acid, T2DM, leukocytosis HPI: Ms. Mcgarry is a 43-year-old female with a PMH of T2DM, seizure disorder, recent hysterectomy that was transferred here to [facility] to obstetrics for abdominal pain. Hospitalist team has been consulted for management of T2DM, elevated lactic acid and leukocytosis. Patient arrived to the [facility] emergency room via EMS for lower abdominal pain. CT of the abdomen andpelvis with contrast was performed which showed a trace of free air in the abdomen which is possibly related to surgical procedure, nonspecific hyperemia and thickening of the small bowel distally can be seen with enteritis,no acute intra-abdominal or pelvic abnormality. While there she was treatedwith morphine, Zofran, IV fluids and 3.375 Zosyn. Her CBC had a white blood cell count of 20.1. CMPwith a sodium of 129, serum bicarb 22.5, anion gap 13.1, BUN 9, creatinine 0.69, glucose 223. Lactic acid 3. Lipase was 39. UA with clear, yellow urine, greater than thousand glucose, trace ketones, trace ofoccult blood, no bacteria seen. Influenza was negative. Patient recently had hysterectomy performed here on September 28. She been seen in the [facility] emergency room for vaginal infection [...] unless noted in the HPI or below. [facility] Medical History (Updated 10/08/23 @ 01:40 by [...] 14.3, BUN 9, Creatinine 0.56 L, EstGFR (CKD-EPI) > 60.0, Glucose 208 H, Calcium 7.9 [...] 10/10/[address] dyereceived at the [facility] Documented By: Namrata Munoz APRN 10/08/23 0106 Signed By: <Electronically signed by CHRISTINA Munoz> 10/08/23 0153 <Electronically signed by Rosanna Grullon MD> 10/08/23 0700 [facility] Work Phone: 1(432) 167-362108-02-[address] [facility]07-12-[address] [facility]06-30-2023 Evaluation note* Encounter Date Diagnosis Assessment Notes Treatment Notes Treatment Clinical Notes Mar, Sacroiliitis (ICD-10 - M46.1) In the future if her pain persists or worsens, we can consider proceeding with a sacroiliac joint injection. Mar,Lumbar radiculopathy (ICD-10 - M54.16) 43 year old female here for follow up to discuss chronic pain. She was lost to follow up after leftL3 and L4 transforaminal epidural steroid injection under [...] as early signs of arthritis. Anatomy of spineas well as different treatment options were discussed in detail with patient in regards to patientscondition. I recommend we proceed with a L4-5 lumbar epidural steroid injection under fluoroscopic guidance. Risks and benefits of procedure explained to patient; patient verbalizes understanding. In the meantime, patient is encouraged to start physical therapy for exercises and stretches to achieve the maximum ability to perform daily activities and movements while managing her pain. Mar,Lumbar degenerative disc disease (ICD-10 - M51.36) Continue with current treatment plan Mar,hronic pain (ICD-10 - G89.29) Follow up after procedure Mar,Neck pain (ICD-10 - M54.2) Pertinent imaging of the cervical spine was reviewed and discussed in detail with the patient whichshowed straightening of the cervical spine. She is encouraged to start physical therapy for exercises and stretches to achieve the maximum ability to perform daily activities and movements while managing her pain. [employer] Other 01-31-2023 Evaluation note* Encounter Date Diagnosis Assessment Notes Treatment Notes Treatment Clinical Notes Oct, Sacroiliitis (ICD-10 - M46.1) In the future if the pain persists, we can consider proceeding with a sacroiliac joint injection. Oct,Lumbar radiculopathy (ICD-10 - M54.16) 42 year old female here for follow up to discuss chronic pain. She was last seen 7 months ago. At that time she had a bilateral SI joint injection and was lost to follow up. She reports 40-45% reliefof pain for 2 weeks. She voices complaints of low back pain with radiation down the outer aspect ofthe left lower extremity to the calf. She feels the leg pain is new and at times gives out on her, causing her to fall. She feels pain is negatively impacting her daily activities and sleeeping pattern. Anatomy of spine as well as different treatment options were discussed in detail with patient inregards to patients condition. I recommend we proceed with a L3 and L4 transforaminal epidural stero id injection on the left under fluoroscopic guidance. Risks and benefits of procedure explained to patient; patient verbalizes understanding. Oct,Lumbar degenerative disc disease (ICD-10 - M51.36) Continue with current treatment plan Oct,hronic pain (ICD-10 - G89.29) Continue medications as prescribed Oct,Neck pain (ICD-10 - M54.2) Patient is encouraged to start physical therapy for exercises and stretches to achieve the maximum ability to perform daily activities and movements while managing her pain. In the meantime, I will order updated imaging of the cervical spine to further evaluate her pain. [employer] [facility] Other 01-30-2023 Hospital Discharge instructions Patient Education [...] to keep your urine pale yellow. ?Take nsvz-suf-rjjkzlj or prescription medicines. ?Eat foods that are high in fiber, such as beans, whole grains, and fresh fruits and vegetables. ?Limit foods that are high in fat and processed sugars, such as fried or sweet foods. General instructions Take solz-nfa-omnenkd and prescription medicines only as told by [...] the muscles that help control urination. Take ztkm-hgw-ccpamjc and prescription medicines only as told by your health care provider. Contact a health care provider if your symptoms do not improve or get worse. This information is not intended to replace advice given to you by your health care provider. Make sure you discuss any questions you have with your health care provider. Document Released: 07/17/2010 Document Revised: 03/30/2019 Document Reviewed: 03/30/2019 [employer] Patient Education 2020 [employer]. Follow Up Care 10/22/2022 11:17:07 With:JORDANA BALDERAS, Joshua Dempsey, URL Address: [address] [phone]- Business (1) When: Unknown [facility] [place] [phone] Hospital Discharge instructions Patient Education 08/24/2022 15:50:28 [...] Care 07/31/2022 12:32:41 With:Joshua PRESTON Address: [address] [address] [employer] [address] [place], [place] [id number] [facility] (1) When:6 weeks Comments:Call for followup appointment. Monitor the urinary low after the dilation today. Have a great Thanksgiving. [facility]10-28-2022 Hospital Discharge instructions Patient Education [...] including vitamins, herbs, eye drops, creams, and ahzs-edt-cnnbefv medicines. ?Whether you are or may be [...] 07/17/2008 Document Revised: 01/09/2020 Document Reviewed: 07/25/2018 [employer] Patient Education 2020 [employer] Follow Up Care 07/24/2022 16:53:57 With:JORDANA BALDERAS, Joshua Dempsey, URL Address: [address] [place], [place] [address] [place] [phone]- When: Unknown Comments:Cysto/ Urodynamics [facility] [place] 05-19-2022 Evaluation note* Encounter Date Diagnosis Assessment Notes Treatment Notes Treatment Clinical Notes February, Lumbosacral spondylosis (ICD-10 - M47.817) In the future if the pain persists, we can consider proceeding with a lumbar facet RFA as she has had 2 medial branch nerve blocks with Dr Ameya Hollins where she received 100% pain relief and increased function for 1 day February,acroiliitis (ICD-10 - M46.1) 42 year old female here for follow up status post left L3 and L4 transforaminal epidural steroid injection under fluoroscopic guidance. Patient reports 80-90% pain relief as well as improved walking,standing and daily functions following procedure. She voices complaints of low back and left hip pain. Anatomy of spine as well as different treatment options were discussed in detail with patient in regards to patients condition. I recommend we proceed with bilateral sacroiliac joint injections under fluoroscopic guidance. Risks and benefits of procedure explained to patient; patient verbalizes understanding. February,Lumbar radiculopathy (ICD-10 - M54.16) Patient reports 80-90% pain relief as well as improved walking, standing and daily functions following procedure. February,Lumbar degenerative disc disease (ICD-10 - M51.36) Continue with current treatment plan February,hronic pain (ICD-10 - G89.29) Continue medications as prescribed February,Hip pain (ICD-10 - M25.559) If her pain persists or worsens, we can consider left hip and GT bursa injection in the future. [employer] Other 04-27-2022 Evaluation note* Encounter Date Diagnosis Assessment Notes Treatment Notes Treatment Clinical Notes Jan, Lumbar radiculopathy (ICD-10 - M 54.16) 42 year old female presents with complaints [...] progress notes from her referring physician at [facility]. I also independently reviewed previous MRI of the lumbar spine whichshows degenerative disc changes as well as facet arthropathy. Anatomy of spine discussed in detail with patient in regards to patients condition. Patient is a candidate for a L3,4 transforaminal epidural steroid injection on the left side under fluoroscopic guidance. Risks and benefits of procedureexplained to patient; patient verbalizes understanding. Jan,Lumbar degenerative disc disease (ICD-10 - M51.36) Continue with current treatment plan Jan,Lumbosacral spondylosis (ICD-10 - M47.817) In the future if the pain persists, we can consider proceeding with a lumbar facet RFA as she has had 2 medial branch nerve blocks with Dr Ameya Hollins where she received 100% pain relief and increased function for 1 day Jan,acroiliitis (ICD-10 - M46.1) In the future if the pain persists, we can consider proceeding with a bilateral sacroiliac joint injection under fluoroscopic guidance. Jan,Fibromyalgia (ICD-10 - M79.7) Continue with medication management through [facility]. I will also refer her to physical therapy for low impact body aerobics Jan,hronic pain (ICD-10 - G89.29) Continue medications as prescribed Jan,therMedical decision making shows a new problem to me with further workup planned or suggested with thepotential for extensive treatment options that were considered with the most applicable given this patient's situation as noted above. Treatment options considered include a combination of physical th erapy approaches, pharmacologic management, and interventional procedures. Those most applicable tothe patient were discussed at this time. Risk [...] prolonged functional impairment requiring constant patient reassessment andhigh-level medical decision making. The amount and complexity of data reviewed is high given that patient labs, radiology reports, and other test were obtained, reviewed and summarized as applicable from the physician portal and/or outside medical records. Pertinent positive and negative findings were considered in medical decision-making. [employer] Other 04-13-2022 Evaluation note* Encounter Date Diagnosis Assessment Notes Treatment Notes Treatment Clinical Notes Jan, Neck pain (ICD-10 - M54.2) I really do not see any surgical intervention that would be warranted in either her cervical or lumbar spine. I think continue conservative therapy is warranted. Jan,Low back pain at multiple sites (ICD-10 - M54.50) Jan,Fibromyalgia (ICD-10 - M79.7) [employer] Other consult note Author Jasmin Velázquez [facility] May 27, 2022 11:47amNote Date/TimeAugust 2021 11:30[facility] [place] [address] Hem/Onc Consult Note - OP Signed Patient: Rachel Mcgarry MR#: [id number] : 1980 Acct:[id number] Age/Sex: 42 / F Type: REG RCR Copies to: [facility]~ HPI Date/Time of Service: Date of Service: 05/27/2022 Time of Service: 11:29 Referring Provider/PCP: Referring Provider: PCP: [facility] - History of Present Illness Reason for Consultation: Leukocytosis Chief Complaint: Patient is here for a referral from Ajit Pettit for leukocytosis. [facility] labs.Patient states that she has been very tired [...] the process of being referred to a pearl hand. Patient smokes averaging half pack to 1 pack daily for many years. Shedoes not take prednisone or steroid inhalers. She was not on lithium. She had good work- up looking for sources of infection. Her leukocytosis [...] been very well within the normal range [facility] - Medical History Medical History: Medical History [...] sources such as perioral dental disease and thelike. Regardless; to exclude any possibility of myeloproliferative including the rare chronic neutrophilic leukemia or lymphoproliferative disorder we will obtain FISH BCR /ABL, as well as flow cytometry. If there is any abnormality we will schedule patient otherwise return to office as needed withno further indicationfor any diagnostic or therapeutic hematologic intervention (2) Iron deficiency Although all the labs available in the records showed normal levels of hemoglobin. Nevertheless because of her significant smoking then could be falseelevation of the hemoglobin. As a matter fact in April 2022 there was an elevated TIBC and low iron saturation with no available ferritin. Results stro ngly suggest iron deficiency. She was started on [...] abdomen pelvis done in the ED that described3.6 cm septated ovarian cyst. She has family history of ovarian cancer including her mom and sisterwho according to the patient also has breast cancer. Patient is being referred to a pearl hand. We instructed her to call back if there is any concern for further definitive guidance and recommendations - Time with Patient Coordination of Care & Counseling Time: Greater than 50% of time spent with patient was for coordination of care (as documented) and pizd-kl-gixn counseling of patient and/or family. Dictated By: Jasmin Velázquez MD DD/ [id number] Signed By: <Electronically signed by Jasmin Velázquez MD> 05/27/22 1147 [facility] Work Phone: Evaluation + Plan note Future Appointments Appointment Date:08/18/2022 08:00:00 AM Scheduled Provider: [facility] Appointment Type:Urology CALL PAT FT Appointment Date:08/24/2022 02:00:00 PM Scheduled Provider: Location:[facility] Appointment Type:Urology FT Appointment Date:08/24/2022 03:00:00 PM Scheduled Provider: Location:[facility] Appointment Type:Urology FT [facility] Evaluation + Plan note Future Appointments Appointment Date:09/29/2022 10:15:00 AM Scheduled Provider:Joshua PRESTON MD Location:[facility] App[facility]ments Appointment Date:12/29/2022 10:45:00 AM Scheduled Provider:Joshua PRESTON MD Location:[facility] Appointment Type:URO Office Visit [facility] Evaluation + Plan note Future Appointments Appointment Date:06/25/2025 02:45:00 PM Scheduled Provider:Joshua PRESTON MD Location:[facility] Appointment Type:URO Procedure 15 min [facility] Evaluation + Plan note Future Appointments Appointment Date:08/21/2025 11:40:00 AM Scheduled Provider:MILLER Salazar APRN, [place] Location:[facility] Appointment Type:URO Office Visit [facility] evaluation noteNo Assessments Information Available [facility] note[facility] InformationNort [employer] Other evaluqtbmi note* Diagnosis Onset Date Resolution Status Iron deficiency acuteLeucocytosisacuteRight ovarian cystacute [facility] Work Phone: Evaluation noteNo assessment information available [facility] Work Phone: evaluation note* Diagnosis Onset Date Resolution Status Abdominal pain acuteEnteritisacuteHistory of depressionacuteHistory of leukocytosisacuteIBS (irritable bowel syndrome)acuteLeucocytosisacuteMetabolic acidosisacuteS/P [id number] (type 2 diabetes mellitus)acute [facility] Work Phone: evaluation note* Diagnosis Onset Date Resolution Status Chronic pain acuteLumbosacral spondylosisacuteSacroiliitisacute [facility] Work Phone: Evaluation note* Diagnosis Onset Date Resolution Status Chronic pain acuteLumbosacral spondylosisacuteSacroiliitisacuteChronic painacuteLumbar radiculopathyacuteLumbosacral spondylosisacuteSacroiliitisacute [facility] Work Phone: Evaluation note* Diagnosis Onset Date Resolution Status Chronic pain acuteLumbosacral spondylosisacuteSacroiliitisacuteChronic painacuteLumbar radiculopathyacuteLumbosacral spondylosisacuteSacroiliitisacuteChronic painacute Lumbar radiculopathyacuteLumbosacral spondylosisacuteSacroiliitisacute [facility] Work Phone: Evaluation note* Diagnosis Onset Date Resolution Status Chronic pain acuteLumbar radiculopathyacuteLumbosacral spondylosisacuteSacroiliitisacute [facility] Work Phone: Evaluation note* Diagnosis Onset Date Resolution Status Admit Date Leukocytosis acuteJune 2024 8:35am [facility] Work Phone: History and physical note Author Abi Sunshine [facility] March 16, 2024 8:19amNote Date/TimeJune 2023 8:20[place] [address] Gastroenterology H&P Signed Patient: Rachel Mcgarry MR#: [id number] : 1980 Acct:[id number] Age/Sex: 44 / F Adm Date: 4 Loc: Room: Type: [facility] Attending Dr: Abi Sunshine DO Copies to: Abi Sunshine, OLEG Jesus~ Date of Service: 03/16/2024 HISTORY & PHYSICAL: Patient's history with special attention to the cardiovascular, pulmonary systems and the current problem was reviewed with the patient immediately prior to the procedure. Present medications and doses reviewed in the EMR. Allergies and pertinent laboratory tests were also re viewedat this time in the EMR. The physical [...] <Electronically signed by Abi Sunshine DO> 03/16/24818 [facility] Work Phone: History general Narrative - Reported* Type Description Date Medical History epilepsy Medical HistoryfibromyalgiaMedical Historydegenerative disc diseaseMedical Historychronic depressionMedical HistoryanxietyMedical HistoryPanic attacks Medical HistoryMild scoliosisMedical HistoryleukocytosisMedical HistoryIBS Medical Historyotitis mediaMedical HistoryinsomniaMedical Historymigraine headacheSurgical HistoryappendectomySurgical HistorycholecystectomySurgical Historyright knee arthroscopyHospitalization Historyblood infection, bowel infection and [id number] [employer] Other History general Narrative - Reported* Type Description Date Medical History epilepsy Medical HistoryfibromyalgiaMedical Historydegenerative disc diseaseMedical Historychronic depressionMedical HistoryanxietyMedical HistoryPanic attacks Medical HistoryMild scoliosisMedical HistoryleukocytosisMedical HistoryIBS Medical Historyotitis mediaMedical HistoryinsomniaMedical Historymigraine headacheSurgical HistoryappendectomySurgical HistorycholecystectomySurgical Historyright knee arthroscopySurgical Historybreast biopsy02/12/22Hospitalization Historyblood infection, bowel infection and [id number] [employer] Other Hospital course Narrative No data available for this section [facility] Hospital Discharge instructions No data available for this section [facility] Hospital Discharge instructions Additional Instructions DISCHARGE [...] in an emergency, call the office at [[phone]]. TODAY -Take it easy the rest of [...] FOLLOW UP -Please call the office at [phone] to arrange an appointment to see me in 2 weeks [ ][facility] Work Phone: Hospital Discharge instructions Additional Instructions Follow any previous post-op orders.[facility] Work Phone: Progress note No data available for this section [facility] Progress note Author Enrique Pratt [facility] CenterNote Date/TimeAugust 2024 10:39[facility] [place] [address] Cancer Center Note Signed Patient: Rachel cMgarry MR#: [id number] : 1980 Acct:[id number] Age/Sex: 45 / F Type: REG AMB [...] by PCR, JAK2 with reflex, BERTHA, RF, KAMILLA, chronic hepatitis panel, HIV, hepatitis C antibodies [...] surface antigen is negative hepatitis B surface antibodyis nonreactive. Hepatitis B core antibody total isnegative [...] sin the last 2-3 months. decreased appetite. 8/6/25: Patient is here for 2 months FU on Leukocytosis, questionable T cell disorder, night sweats and weight loss. -T-cell rearrangement testing done on 04/18/2025 revealed no clonal T-cell receptor gamma populationwas detected. This is with 89% certainty as this PCR technique may not detect all possible T-cell receptor gene rearrangements. If significant suspicion for clonality remains in the T-cell receptor beta with a test called a [id number] is recommended and if both are negative [...] - Elevated white blood cell count, unspecified, R61- Generalized hyperhidrosis LDH Lactate Dehydrogenase 4 Months D72.829 - Elevated white blood cell count, unspecified, R61 - Generalized hyperhidrosis T-Cell Gene Rearrangement, PCR 4 Months D72.829 - Elevated white blood cell count, unspecified, R61- Generalized hyperhidrosis Comprehensive Metabolic Panel 4 Months [...] been normal to mildly elevated anywhere from 3.7- 5.8 lately. The rest of the WBC differential revealed occasional intermittent absolute monocytosis with a monocyte count anywhere from 0.9-1.6 mildly elevatedandnormal eosinophils and basophils counts. CMP is unremarkable [...] since age 8. She has a history ofcervical cancer and history of endometriosis and endometrial polyps for that reason hysterectomy was done in September 2024. She also had colon polyps and had a colonoscopy in 09/05/2024 which revealed: 3 polyps removed and 9 mm submucosal nodule in the rectum with internal hemorrhoids. Pathology of the 3 colon polyps revealed tubular adenoma but negative for high-grade dysplasia. Pathology of the rectal submucosal nodule [...] by PCR, JAK2 with reflex, BERTHA, RF, KAMILLA, chronic hepatitis panel, HIV, hepatitis C antibodies [...] RF is normal 11.0 BERTHA is negative. HepatitisA IgM isnegative. Hepatitis B surface antigen is [...] the cell disorder may not show any immun ophenotypic abnormalities by flow cytometry it cannot be excluded to 35 flow. Correlation thereforewith clinical history and morphology is recommended. If T- cell lymphoproliferative disorder is suspected highly than the [...] 04/18/2025 revealed no clonal T-cell receptor gamma populationwas detected. This is with 89% certainty as this PCR technique may not detect all possible T-cell receptor gene rearrangements. If significant suspicion for clonality remains in the T-cell receptor beta with a test called a [id number] is recommended and if both are negative [...] No concerns voiced at time of intake. [facility] Medical History Medical History Leukocytosis Fibromyalgia History [...] signed by Enrique Pratt MD> 05/09/25 1039 [facility] Work Phone: Reason for referral (narrative)No reason for referral information availableM[facility] Work Phone: Reason for visit NarrativeReferral Ajit Pettit NP [facility] DiscNopemisc[facility] [employer] Other Summary Purpose Family History Relationship Condition Age at Onset Recorded Date/T marilynn Not Specified Myocardial infarction Unknown Malignant neoplasmUnknown Relationship Condition Age at Onset Recorded Date/T marilynn Not Specified Myocardial infarction Unknown Malignant neoplasmUnknownNot SpecifiedHypothyroidismUnknown Relationship Condition Age at Onset Recorded Date/T marilynn Not Specified Hypothyroidism Unknown Myocardial infarctionUnknownMalignant neoplasmUnknownsisterHyperthyroidism Unknown Relationship Condition Age at Onset Recorded Date/T marilynn Not Specified Hypothyroidism Unknown Myocardial infarctionUnknownMalignant neoplasm of ovaryUnknownMalignant neoplasm of uterusUnknownsisterHyperthyroidismUnknownMalignant neoplasm of cervixUnknown Relationship Condition Age at Onset Recorded Date/T marilynn Not Specified Hypothyroidism Unknown Myocardial infarctionUnknownMalignant neoplasm of ovaryUnknownMalignant neoplasm of uterusUnknownsisterHyperthyroidismUnknownMalignant neoplasm of cervixUnknown fatherDeceasedUnknownNot SpecifiedHeart diseaseUnknown Relationship Condition Age at Onset Recorded Date/T marilynn Not Specified Malignant neoplasm of ovary Unknown HypothyroidismUnknownMyocardial infarctionUnknownMalignant neoplasm of uterus UnknownHeart diseaseUnknownsisterMalignant neoplasm of cervixUnknown HyperthyroidismUnknownMalignant neoplasm of ovaryUnknownfatherDeceasedUnknown Relationship Condition Age at Onset Recorded Date/T marilynn mother Malignant neoplasm of ovary Unknown HypothyroidismUnknownMyocardial infarctionUnknownMalignant neoplasm of uterus UnknownHeart diseaseUnknownsisterMalignant neoplasm of cervixUnknown HyperthyroidismUnknownMalignant neoplasm of ovaryUnknownfatherDeceasedUnknown Relationship Condition Age at Onset Recorded Date/T marilynn mother Malignant neoplasm of ovary Unknown Heart diseaseUnknownHypothyroidismUnknownMyocardial infarctionUnknownMalignant neoplasm of uterusUnknownNeuropathyUnknownHistory of coronary artery stent placementUnknownsisterMalignant neoplasm of cervixUnknownMalignant neoplasm of ovaryUnknownHyperthyroidismUnknownfatherDeceasedUnknown Advance Directives Advance Directive Response Recorded Date/ Time Advance Directives No June 2:21am Advance Directive Response Recorded Date/ Time Advance Directives No June 3:21am Advance Directive Response Recorded Date/ Time Advance Directives No March 08 11:02am Advance Directive Response Recorded Date/ Time Advance Directives No April 13 8:46am Advance Directive Response Recorded Date/ Time Advance Directives No April 13 7:46am Chief Complaint and Reason for Visit Chief [...] work, rt side pain D72.829 Leukocytosis D72.829 N35Axsnsd for VisitIron deficiency Leucocytosis Right ovarian cyst Chief Complaint lt ankle injury E11.9 G40.909 E55.9 M25.469 abnormal lab work, rt side pain D72.829 Leukocytosis D72.829 R42 feeling of incomplete bladder emptying uterine massReason for VisitIron deficiency Leucocytosis Right ovarian cyst Chief Complaint lt ankle injury E11.9 G40.909 E55.9 M25.469 abnormal lab work, rt side pain D72.829 Leukocytosis D72.829 R42 feeling of incomplete bladder emptying uterine mass feeling of incomplete bladder emp r42 migr e11.9Reason for VisitIron deficiency Leucocytosis Right ovarian cyst Chief Complaint lt ankle injury E11.9 G40.909 E55.9 M25.469 abnormal lab work, rt side pain D72.829 Leukocytosis D72.829 R42 feeling of incomplete bladder emptying uterine mass feeling of incomplete bladder emp r42 migr e11.9 D72.829Reason for VisitIron deficiency Leucocytosis Right ovarian cyst Chief Complaint [...] pain menorrhagia, pelvic pain post op abd pain,leukocytosisReason for VisitAbdominal pain Enteritis History of depression History of leukocytosis IBS (irritable bowel syndrome) Leucocytosis Metabolic acidosis S/P hysterectomy T2DM (type 2 diabetes mellitus) Chief Complaint menorrhagia, pelvic pain menorrhagia, pelvic pain post op abd pain,leukocytosis bleedingReason for VisitAbdominal pain Enteritis History of depression History of leukocytosis IBS (irritable bowel syndrome) Leucocytosis Metabolic acidosis S/P hysterectomy T2DM (type 2 diabetes mellitus) Chief Complaint Type 2 diabetes scooter itus without complication, wit Chief Complaint E11.9 R82.998 R79.89 Chief Complaint E11.9 R82.998 R79.89 Z12.31 Chief Complaint E11.9 R82.998 R79.89 Z12.31 N63.41 Chief Complaint E11.9 R82.998 R79.89 Z12.31 N63.41 back leg painReason for VisitChronic pain Lumbosacral spondylosis Sacroiliitis Chief Complaint E11.9 R82.998 R79.89 Z12.31 N63.41 back leg pain Back Pain Back PainReason for VisitChronic pain Lumbosacral spondylosis Sacroiliitis Chief Complaint E11.9 R82.998 R79.89 Z12.31 N63.41 back leg pain Back Pain Back Pain M47.817Reason for VisitChronic pain Lumbosacral spondylosis Sacroiliitis Chief Complaint E11.9 R82.998 R79.89 Z12.31 N63.41 back leg pain Back Pain Back Pain M47.817 FOLLOW UP AFTER MIGUELINA SIReason for VisitChronic pain Lumbosacral spondylosis Sacroiliitis Chronic pain Lumbar radiculopathy Lumbosacral spondylosis Sacroiliitis Chief Complaint E11.9 R82.998 R79.89 Z12.31 N63.41 back leg pain Back Pain Back Pain M47.817 FOLLOW UP AFTER MIGUELINA SI Screening ScreeningReason for VisitChronic pain Lumbosacral spondylosis Sacroiliitis Chronic pain Lumbar radiculopathy Lumbosacral spondylosis Sacroiliitis Chief Complaint E11.9 R82.998 R79.89 Z12.31 N63.41 back leg pain Back Pain Back Pain M47.817 FOLLOW UP AFTER MIGUELINA SI Screening Screening f/u after physical therapy, order MRIReason for VisitChronic pain Lumbosacral spondylosis Sacroiliitis Chronic pain Lumbar radiculopathy Lumbosacral spondylosis Sacroiliitis Chronic pain Lumbar radiculopathy Lumbosacral spondylosis Sacroiliitis Chief Complaint back leg pain Back Pain Back Pain M47.817 FOLLOW UP AFTER MIGUELINA SI Screening Screening f/u after physical therapy, order MRI Type 2 diabetes mellitus without complication, witReason for VisitChronic pain Lumbosacral spondylosis Sacroiliitis Chronic pain Lumbar radiculopathy Lumbosacral spondylosis Sacroiliitis Chronic pain Lumbar radiculopathy Lumbosacral spondylosis Sacroiliitis Chief Complaint Screening Screening f/u after physical therapy, order MRI E55.9 E11.9 M54.16 M51.06 M41.9Reason for VisitChronic pain Lumbar radiculopathy Lumbosacral spondylosis Sacroiliitis Chief Complaint f/u after physical t herapy, order MRI E55.9 E11.9 M54.16 M51.06 M41.9 R52 E78.00Reason for VisitChronic pain Lumbar radiculopathy Lumbosacral spondylosis Sacroiliitis Chief Complaint f/u after physical t herapy, order MRI E55.9 E11.9 M54.16 M51.06 M41.9 R52 E78.00 sent by Lavinia for VisitChronic pain Lumbar radiculopathy Lumbosacral spondylosis Sacroiliitis Chief [...] EEG per May 17, 2025 9: 27am Chief Complaint Admit Date LUMBAR DISC DISORDER WITH MYELOPATHY Mar 8:25am Follow Up 3 Weeks April 04, 2025 9:39a m Ref: Dr. Pratt - Elevated WBC April 16, 2025 1:55pm D72.829 April 18, 2025 9:57 am Follow Up 4 Weeks May 09, 2025 9:5 3am Leukocytosis May 09, 2025 9:5 4am Routine EEG per May 17, 2025 9: 27am LOW BACK/HIP PAIN June 18, 2025 11:22am Reason for Visit Admit Date Lumbosacral spondylosis March 20, 2025 8:25am Trochanteric bursitis March 20, 2025 8: 25am Leukocytosis April 04, 2025 9:39a m Leukocytosis April 16, 2025 1:55 pm Chronic migraine without aur a without status migrainosus, not intractable May 09, 2025 9:06am Epidural lipomatosis May 09, 2025 9: 06am Seizure disorder May 09, 2025 9:0 6am Leukocytosis May 09, 2025 9:5 3am Seizure disorder May 17, 2025 9: 27am Chronic pain June 18, 2025 11:22am Lumbar radiculopathy June 18 11:22am Lumbosacral spondylosis June 18, 2025 11:22am Sacroiliitis June 18, 2025 11:22am Chief Complaint Admit Date Follow Up 3 Weeks April 04, 2025 9:39a m Ref: Dr. Pratt - Elevated WBC April 16, 2025 1:55pm D72.829 April 18, 2025 9:57 am Follow Up 4 Weeks May 09, 2025 9:5 3am Leukocytosis May 09, 2025 9:5 4am Routine EEG per May 17, 2025 9: 27am LOW BACK/HIP PAIN June 18, 2025 11:22am M46.1 M54.16 M47.817 June 18 5:00pm Reason for Visit Admit Date Leukocytosis April 04, 2025 9:39a m Leukocytosis April 16, 2025 1:55 pm Chronic migraine without aur a without status migrainosus, not intractable May 09, 2025 9:06am Epidural lipomatosis May 09, 2025 9: 06am Seizure disorder May 09, 2025 9:0 6am Leukocytosis May 09, 2025 9:5 3am Seizure disorder May 17, 2025 9: 27am Chronic pain June 18, 2025 11:22am Lumbar radiculopathy June 18 11:22am Lumbosacral spondylosis June 18, 2025 11:22am Sacroiliitis June 18, 2025 11:22am Chief Complaint Admit Date Ref: Dr. Pratt - Elevated WBC April 16, 2025 1:55pm D72.829 April 18, 2025 9:57 am Follow Up 4 Weeks May 09, 2025 9:5 3am Leukocytosis May 09, 2025 9:5 4am Routine EEG per May 17, 2025 9: 27am LOW BACK/HIP PAIN June 18, 2025 11:22am M46.1 M54.16 M47.817 June 18 5:00pm Back Pain July 04, 2025 8: 07am Reason for Visit Admit Date Leukocytosis April 16, 2025 1:55 pm Chronic migraine without aur a without status migrainosus, not intractable May 09, 2025 9:06am Epidural lipomatosis May 09, 2025 9: 06am Seizure disorder May 09, 2025 9:0 6am Leukocytosis May 09, 2025 9:5 3am Seizure disorder May 17, 2025 9: 27am Chronic pain June 18, 2025 11:22am Lumbar radiculopathy June 18 11:22am Lumbosacral spondylosis June 18, 2025 11:22am Sacroiliitis June 18, 2025 11:22am Chief Complaint Admit Date Ref: Dr. Pratt - Elevated WBC April 16, 2025 1:55pm D72.829 April 18, 2025 9:57 am Follow Up 4 Weeks May 09, 2025 9:5 3am Leukocytosis May 09, 2025 9:5 4am Routine EEG per May 17, 2025 9: 27am LOW BACK/HIP PAIN June 18, 2025 11:22am M46.1 M54.16 M47.817 June 18 5:00pm Back Pain July 04, 2025 8: 07am f/u after L4-5 LES July 13, 2025 1 0:19am Reason for Visit Admit Date Leukocytosis April 16, 2025 1:55 pm Chronic migraine without aur a without status migrainosus, not intractable May 09, 2025 9:06am Epidural lipomatosis May 09, 2025 9: 06am Seizure disorder May 09, 2025 9:0 6am Leukocytosis May 09, 2025 9:5 3am Seizure disorder May 17, 2025 9: 27am Chronic pain June 18, 2025 11:22am Lumbar radiculopathy June 18 11:22am Lumbosacral spondylosis June 18, 2025 11:22am Sacroiliitis June 18, 2025 11:22am Chronic pain July 13, 2025 1 0:19am Hip pain, bilateral July 13, 2025 1 0:19am Lumbar radiculopathy July 13, 2025 10:19am Lumbosacral spondylosis July 13 10:19am Chief Complaint Admit Date Follow Up 4 Weeks May 09, 2025 9:5 3am Leukocytosis May 09, 2025 9:5 4am Routine EEG per May 17, 2025 9: 27am LOW BACK/HIP PAIN June 18, 2025 11:22am M46.1 M54.16 M47.817 June 18 5:00pm Back Pain July 04, 2025 8: 07am f/u after L4-5 LES July 13, 2025 1 0:19am Reason for Visit Admit Date Chronic migraine without aur a without status migrainosus, not intractable May 09, 2025 9:06am Epidural lipomatosis May 09, 2025 9: 06am Seizure disorder May 09, 2025 9:0 6am Leukocytosis May 09, 2025 9:5 3am Seizure disorder May 17, 2025 9: 27am Chronic pain June 18, 2025 11:22am Lumbar radiculopathy June 18 11:22am Lumbosacral spondylosis June 18, 2025 11:22am Sacroiliitis June 18, 2025 11:22am Chronic pain July 13, 2025 1 0:19am Hip pain, bilateral July 13, 2025 1 0:19am Lumbar radiculopathy July 13, 2025 10:19am Lumbosacral spondylosis July 13 10:19am Chronic migraine without aur a without status migrainosus, not intractable August 01, 2025 8:35am Encounter for medication monitoring Octo 2024 8:35am Epidural lipomatosis August 01, 2025 8:35am Seizure disorder August 01, 2025 8 :35am Chief Complaint Admit Date Routine EEG per May 17, 2025 9: 27am LOW BACK/HIP PAIN June 18, 2025 11:22am M46.1 M54.16 M47.817 June 18 5:00pm Back Pain July 04, 2025 8: 07am f/u after L4-5 LES July 13, 2025 1 0:19am 2 Hour EEG August 09, 2025 8 :21am Reason for Visit Admit Date Seizure disorder May 17, 2025 9: 27am Chronic pain June 18, 2025 11:22am Lumbar radiculopathy June 18 11:22am Lumbosacral spondylosis June 18, 2025 11:22am Sacroiliitis June 18, 2025 11:22am Chronic pain July 13, 2025 1 0:19am Hip pain, bilateral July 13, 2025 1 0:19am Lumbar radiculopathy July 13, 2025 10:19am Lumbosacral spondylosis July 13 10:19am Chronic migraine without aur a without status migrainosus, not intractable August 01, 2025 8:35am Encounter for medication monitoring Octo 2024 8:35am Epidural lipomatosis August 01, 2025 8:35am Seizure disorder August 01, 2025 8 :35am Assessments No Assessments Information AvailableNo Assessments Information AvailableNo Assessments Information AvailableNo Assessments Information AvailableNo Assessments Information AvailableNo Assessments Information Available Additional Source Comments INFORMATION SOURCE (unrecogn ized section and content) DATE CREATED AUTHOR 07/25/2019 [facility] DATE CREATED AUTHOR AUTHOR'S ORGANIZ ATION 02/15/2023 [facility] DATE CREATED AUTHOR AUTHOR'S ORGANIZ ATION 10/21/2023 [facility] DATE CREATED AUTHOR AUTHOR'S ORGANIZ ATION 07/10/2024 [facility] DATE CREATED AUTHOR AUTHOR'S ORGANIZ ATION 02/11/2025 [facility] DATE CREATED AUTHOR AUTHOR'S ORGANIZ ATION 06/13/2025 [facility] DATE CREATED AUTHOR AUTHOR'S ORGANIZ ATION 06/26/2025 [facility] DATE CREATED AUTHOR AUTHOR'S ORGANIZ ATION 07/12/2025 [facility] REASON FOR VISIT (unrecogniz ed section and content) LEFT L3,4 TRANSFORAMINAL EPIDURAL STEROID INJ/ELREF BY [facility] FOR LUMBAR DISC HERNIATIONFOLLOW UP [...] Services [facility] Primary Care Provider Active Ajit Pettit NP-CAttending ProviderActive Team Status: Active Member Role Status Dates Jasmin Velázquez MD Attending Provider Active Services [facility] HealthPrimary Care ProviderActive Team Status: Inactive Member Role Status Dates [facility] Primary Care Provider Ac Krystle Martínez ProviderActive Team Status: Inactive Member Role Status Dates [facility] Primary Care Provider Ac raya Pettit , NITRATE OPERATOR-CAttending ProviderActive Team Status: Inactive Member Role Status Dates [facility] Primary Care Provider Ac Kay Jalloh ProviderActive Team Status: Active Member Role Status Dates [facility] Primary Care Provider Ac tive Team Status: Inactive Member Role Status Dates Ajit Pettit , NITRATE OPERATOR-C Attending Provider Active Services [facility] SeniorPrimary Care ProviderActive Team Status: Inactive Member Role Status Dates [facility] Primary Care Provider Ac Brandy Bush ProviderActive Team Status: Inactive Member Role Status Dates Ajit Pettit NITRATE OPERATOR-C Attending Provider Active Team Status: Active Member Role Status Dates . [facility] Primary Care Provider Active Team Status: Inactive Member Role Status Lorie Miramontes MD Attending Provider Active . [facility]Primary [facility] ProviderActive Team Status: Inactive Member Role Status Dates Ajit Pettit , NITRATE OPERATOR-C Attending Provider Active NON STAFFPrimary Care ProviderActive Team Status: Active Member Role Status Lorie Pettit , NITRATE OPERATOR-C Primary Care Provider Active Team Status: Inactive Member Role Status Lorie Pettit NITRATE OPERATOR-C Primary Care Provider, Attending Provider Active Team Status: Inactive Member Role Status Lorie Miramontes MD Attending Provider Active Ajit Pettit , NITRATE OPERATOR-CPrimary Care ProviderActive Team Status: Inactive Member Role Status Lorie Pettit , NITRATE OPERATOR-C Primary Care Provider Active Brandy Viramontes ProviderActive Team Status: Inactive Member Role Status Lorie Pettit NITRATE OPERATOR-C Primary Care Provider Active Harsha Jose ProviderActive Team Status: Inactive Member Role Status Dates Beltran Velez MD Admit Provider Active Pastora Calderon RNOther ProviderActiveSarina Danielle RNOther Provider ActiveBernie Brar RNOther ProviderActiveKaruna Flor RNOther Provider ActiveMikayla Salmons , RNOther ProviderActiveMolevi Sun , RNOther Provider ActiveLisa James Dials , APRNOther ProviderActiveRonobir Renetta , DOOther Provider ActiveMusopal Blair MDOther ProviderActiveBrandon Dowling , DOOther ProviderActiveFlorin Cruz MDOther ProviderActiveVivi Holloway MDOther ProviderActiveLyildefonso Lopez , APRNOther ProviderActiveLilly Alexandre MD Other ProviderActiveBaapple Tyler MDOther ProviderActiveAidan Cardenas MDOther ProviderActiveHolden De La Cruz MDOther ProviderActiveMichaebib Catalan , DOOther ProviderActiveFirgenesis Bright MDOther ProviderActiveEarbib Vasquez MDOther Provider ActiveKarina Colvin , NITRATE OPERATOR-COther ProviderActiveGaurav Peraza MDOther ProviderActiveNaejessie Guzman MDOther ProviderActiveAntonio Teague MDOther Provider ActiveJorge Galdamez MDOther ProviderActiveMarjake Longoria , DOOther ProviderActive Bola R Nate , DOOther ProviderActiveAnthony M Miniaci , DOOther Provider ActiveLinda Obika , APRNOther ProviderActiveSalazar Cabrera , DOAttending Provider, Other ProviderActiveObajonna Lema MDOther ProviderActivePamasood Munoz , APRNOther ProviderActiveAlicia Jorge Lundy , APRNOther ProviderActiveRosanna Grullon MDOther ProviderActiveDadavi Tolentino MDOther ProviderActive Beryl Holguin , APRNOther ProviderActiveMabel Lackey , DOOther Provider ActiveTalita Noel RNOther ProviderActiveTeo Taylor MDOther ProviderActiveLajero Pettit , NITRATE OPERATOR-CPrimary Care ProviderActive Team Status: Inactive Member Role Status Dates Ajit Pettit , NITRATE OPERATOR-C Primary Care Provider Active Krystle Gordillo ProviderActive Team Status: Inactive Member Role Status Dates Ajit Pettit , NITRATE OPERATOR-C Attending Provider Active Start: January 18, 2024 End: January 18, 2024 Team Status: Inactive Member Role Status Dates Ajit Pettit , NITRATE OPERATOR-C Primary Care Provi tirso, Attending Provider Active Start: January 21, 2024 End: January 21, 2024 Team Status: Inactive Member Role Status Dates Ajit Pettit , NITRATE OPERATOR-C Primary Care Provi tirso, Attending Provider Active Start: February 04, 2024 End: February 04, 2024 Team Status: Inactive Member Role Status Dates Ajit Pettit , NITRATE OPERATOR-C Primary Care Provi tirso, Attending Provider Active Start: February 09, 2024 End: February 09, 2024 Team Status: Inactive Member Role Status Dates Ajit Pettit , NITRATE OPERATOR-C Primary Care Provider Active Start: February 21, 2024 End: February 21, 2024Kyler Miramontes , MDAttending ProviderActiveStart: February 21, 2024 End: February 21, 2024 Team Status: Inactive Member Role Status Dates Ajit Pettit , NITRATE OPERATOR-C Primary Care Provider Active Start: March 01, 2024 End: March 01, 2024Kyler Miramontes , MDAttending ProviderActiveStart: March 01, 2024 End: March 01, 2024 Team Status: Active Member Role Status Dates Ajit Pettit , NITRATE OPERATOR-C Primary Care Provider Active Start: March 01, 2024 Kyler Miramontes , MDAttending Provider, Other ProviderActiveStart: March 01, 2024 Team Status: Inactive Member Role Status Dates Ajit Pettit , NITRATE OPERATOR-C Primary Care Provider Active Start: March 02, 2024 End: March 02, 2024Kyler Miramontes , MDAttending ProviderActiveStart: March 02, 2024 End: March 02, 2024 Team Status: Inactive Member Role Status Dates Ajit Pettit , NITRATE OPERATOR-C Primary Care Provider Active Start: March 08, 2024 End: March 08, 2024Kyler Miramontes , MDAttending ProviderActiveStart: March 08, 2024 End: March 08, 2024 Team Status: Inactive Member Role Status Dates Ajit Cat Pettit , NITRATE OPERATOR-C Primary Care Provider Active Start: March 16, 2024 End: March 16cachorro Sunshine , DOAttending ProviderActiveStart: March 16, 2024 End: March 16, 2024 Team Status: Active Member Role Status Dates Ajit Pettit , NITRATE OPERATOR-C Primary Care Provider Active Start: March 16, 2024 Abi Sunshine , DOAttending Provider, Other ProviderActiveStart: March 16, 2024 Team Status: Inactive Member Role Status Dates Ajit Cat Millanc , NITRATE OPERATOR-C Primary Care Provider Active Start: April 11, 2024 End: April 11leela Villalobos NPAttending ProviderActiveStart: April 11, 2024 End: April 11, 2024 Team Status: Inactive Member Role Status Dates Ajit E Spasic , NITRATE OPERATOR-C Attending Provider Active Start: May 16, 2024 End: May 16, 2024 Team Status: Inactive Member Role Status Dates Ajit Cat Spasic , NITRATE OPERATOR-C Primary Care Provi tirso, Attending Provider Active Start: June 08, 2024 End: June 08, 2024 Team Status: Inactive Member Role Status Dates Ajit E Spasic , NITRATE OPERATOR-C Primary Care Provi tirso, Attending Provider Active Start: July 04, 2024 End: July 04, 2024 Team Status: Inactive Member Role Status Dates Ajit E Spasic , NITRATE OPERATOR-C Primary Care Provider Active Start: July 06, 2024 End: July 06Galina Gaona ProviderActiveStart: July 06, 2024 End: July 06, 2024 Team Status: Inactive Member Role Status Dates Ajit Cat Spasic , NITRATE OPERATOR-C Primary Care Provi tirso, Attending Provider Active Start: July 24, 2024 End: July 24, 2024 Team Status: Inactive Member Role Status Dates Ajit E Spasic , NITRATE OPERATOR-C Primary Care Provider Active Start: January 18, 2025 End: January 18, 2025Praveen Rivero , DOAttending ProviderActiveStart: January 18, 2025 End: January 18, 2025 Team Status: Inactive Member Role Status Dates Ajit E Spasic , NITRATE OPERATOR-C Primary Care Provider Active Start: February 12, 2025 End: February 12, 2025Anisa Chong , DOAttending ProviderActiveStart: February 12, 2025 End: February 12, 2025 Team Status: Inactive Member Role Status Dates Ajit E Spasic , NITRATE OPERATOR-C Primary Care Provi tirso, Attending Provider Active Start: February 15, 2025 End: February 15, 2025 Team Status: Inactive Member Role Status Dates Praveen Pay , DO Attending Provider Active Start : February 16, 2025 End: February 16, 2025 Team Status: Inactive Member Role Status Dates Ajit Cat Millanc , NITRATE OPERATOR-C Attending Provider Active Start: February 20, 2025 End: February 20, 2025 Team Status: Inactive Member Role Status Dates NON STAFF Attending Provider Active Start: 2024 End: February 26, 2025 Team Status: Inactive Member Role Status Dates Ajit Cat Lariossic , NITRATE OPERATOR-C Primary Care Provi tirso, Attending Provider Active Start: March 06, 2025 End: March 06, 2025 Team Status: Inactive Member Role Status Dates Ajit Lariossic , NITRATE OPERATOR-C Primary Care Provi tirso, Referring Provider Active Start: March 14, 2025 End: March 14, 2025Vinny Medranoending ProviderActiveStart: March 14, 2025 End: March 14, 2025 Team Status: Active Member Role Status Dates Ajit E Yanac , NITRATE OPERATOR-C Primary Care Provi tirso, Referring Provider Active Start: March 14, 2025 Jane Woo , NITRATE OPERATOR-CAttending ProviderActiveStart: March 14, 2025 Team Status: Inactive Member Role Status Dates Ajit Cat Millanc , NITRATE OPERATOR-C Primary Care Provider Active Start: February 15, 2025 End: February 15, 2025Laura Cat Spasic , NITRATE OPERATOR-CAttending ProviderActiveStart: February 15, 2025 End: February 15, 2025 Team Status: Inactive Member Role Status Dates Ajit E Spasic , NITRATE OPERATOR-C Primary Care Provider Active Start: March 06, 2025 End: March 06, 2025Shelbiura E Spasic , NITRATE OPERATOR-CAttending ProviderActiveStart: March 06, 2025 End: March 06, 2025 Team Status: Inactive Member Role Status Dates Ajit E Spasic , NITRATE OPERATOR-C Primary Care Provider Active Start: March 14, 2025 End: March 14, 2025Shelbiura Cat Lariossic , NITRATE OPERATOR-CReferring ProviderActiveStart: March 14, 2025 End: March 14, 2025manuel Pratt MDAttending ProviderActiveStart: March 14, 2025 End: March 14, 2025 Team Status: Inactive Member Role Status Dates Ajit Cat Lariossic , NITRATE OPERATOR-C Primary Care Provider Active Start: March 20, 2025 End: March 20, 2025Cb Raines , MDAttending ProviderActiveStart: March 20, 2025 End: March 20, 2025 Team Status: Inactive Member Role Status Dates Ajit Pettit , NITRATE OPERATOR-C Primary Care Provider Active Start: April 04, 2025 End: April 04, 2025Mhd Yaser Al-Markelechi , MDAttending ProviderActiveStart: April 04, 2025 End: April 04, 2025 Team Status: Active Member Role Status Dates Ajit Pettit , NITRATE OPERATOR-C Primary Care Provider Active Start: April 04, 2025 Ajit Pettit , NITRATE OPERATOR-CReferring ProviderActiveStart: April 04, 2025 Jane Woo , NITRATE OPERATOR-CAttending ProviderActiveStart: April 04, 2025 Team Status: Inactive Member Role Status Dates Ajit Pettit , NITRATE OPERATOR-C Primary Care Provider Active Start: April 16, 2025 End: April 16, 2025Micjyoti Patricia , MDAttending ProviderActiveStart: April 16, 2025 End: April 16, 2025Mhd Elio Ramírez-Shikha , MDReferring ProviderActiveStart: April 16, 2025 End: April 16, 2025 Team Status: Active Member Role Status Dates Ajit Pettit , NITRATE OPERATOR-C Primary Care Provider Active Start: April 18, 2025 Ajit Pettit , NITRATE OPERATOR-CReferring ProviderActiveStart: April 18, 2025 Jane Woo , NITRATE OPERATOR-CAttending ProviderActiveStart: April 18, 2025 Team Status: Inactive Member Role Status Dates Ajit Pettit , NITRATE OPERATOR-C Primary Care Provider Active Start: April 18, 2025 End: April 18, 2025Michael Blank , MDAttending ProviderActiveStart: April 18, 2025 End: April 18, 2025 Team Status: Inactive Member Role Status Dates Ajit Pettit , NITRATE OPERATOR-C Primary Care Provider Active Start: May 09, 2025 End: May 09esme Rodriguez , DOAttending ProviderActiveStart: May 09, 2025 End: May 09, 2025 Team Status: Inactive Member Role Status Dates Ajit Pettit , NITRATE OPERATOR-C Primary Care Provider Active Start: May 09, 2025 End: May 09, 2025Enrique Pratt MDAttending ProviderActiveStart: May 09, 2025 End: May 09, 2025 Team Status: Active Member Role Status Dates Ajit Pettit , NITRATE OPERATOR-C Primary Care Provider Active Start: May 09, 2025 Ajit Pettit , NITRATE OPERATOR-CReferring ProviderActiveStart: May 09, 2025 Jane Woo NITRATE OPERATOR-CAttending ProviderActiveStart: May 09, 2025 Team Status: Inactive Member Role Status Dates Ajit Pettit , NITRATE OPERATOR-C Primary Care Provider Active Start: May 17, 2025 End: May 17, 2025Mony Lepe DODoyleending ProviderActiveStart: May 17, 2025 End: May 17, 2025 Team Status: Inactive Member Role Status Dates Ajit Pettit , NITRATE OPERATOR-C Primary Care Provider Active Start: June 18, 2025 End: June 18, 2025Kyler Miramontes MDAttending ProviderActiveStart: June 18, 2025 End: June 18, 2025 Team Status: Inactive Member Role Status Dates Ajit Pettit , NITRATE OPERATOR-C Primary Care Provider Active Start: July 04, 2025 End: July 04, 2025Kyler Miramontes MDAttending ProviderActiveStart: July 04, 2025 End: July 04, 2025 Team Status: Active Member Role Status Dates Ajit Pettit , NITRATE OPERATOR-C Primary Care Provider Active Start: July 04, 2025 Vinny Viramontesending ProviderActiveStart: July 04, 2025 Cherie Viramontes ProviderActiveStart: July 04, 2025 Team Status: Inactive Member Role Status Dates Ajit Pettit , NITRATE OPERATOR-C Primary Care Provider Active Start: July 13, 2025 End: July 13, 2025Kyler Miramontes MDAttending ProviderActiveStart: July 13, 2025 End: July 13, 2025 Team Status: Active Member Role/Relationship Status Dates Ajit Pettit , NITRATE OPERATOR-C Primary Care Provider Active Team Status: Inactive Member Role/Relationship Status Dates Ajit Pettit , NITRATE OPERATOR-C Primary Care Provider Active Start: May 09, 2025 End: May 09esme Rodrgiuez DOAttending ProviderActiveStart: May 09, 2025 End: May 09, 2025 Team Status: Inactive Member Role/Relationship Status Dates Ajit Cat Pettit , NITRATE OPERATOR-C Primary Care Provider Active Start: May 09, 2025 End: May 09, 2025Enrique Pratt , MDAttending ProviderActiveStart: May 09, 2025 End: May 09, 2025 Team Status: Active Member Role/Relationship Status Dates Ajit Pettit , NITRATE OPERATOR-C Primary Care Provider Active Start: May 09, 2025 Ajit Pettit , NITRATE OPERATOR-CReferring ProviderActiveStart: May 09, 2025 Jane Woo , NITRATE OPERATOR-CAttending ProviderActiveStart: May 09, 2025 Team Status: Inactive Member Role/Relationship Status Dates Ajit Cat Pettit , NITRATE OPERATOR-C Primary Care Provider Active Start: May 17, 2025 End: May 17, 2025Mony Lepe DOAttending ProviderActiveStart: May 17, 2025 End: May 17, 2025 Team Status: Inactive Member Role/Relationship Status Dates Ajit Pettit , NITRATE OPERATOR-C Primary Care Provider Active Start: June 18, 2025 End: June 18, 2025Kyler Miramontes MDAttending ProviderActiveStart: June 18, 2025 End: June 18, 2025 Team Status: Inactive Member Role/Relationship Status Dates Ajit Pettit , NITRATE OPERATOR-C Primary Care Provider Active Start: June 18, 2025 End: June 18, 2025Kyler Miramontes MDAttending ProviderActiveStart: June 18, 2025 End: June 18, 2025 Team Status: Active Member Role/Relationship Status Dates Ajit Pettit , NITRATE OPERATOR-C Primary Care Provider Active Start: July 04, 2025 Vinny Viramontesending ProviderActiveStart: July 04, 2025 Cherie Viramontes ProviderActiveStart: July 04, 2025 Team Status: Inactive Member Role/Relationship Status Dates Ajit Pettit , NITRATE OPERATOR-C Primary Care Provider Active Start: July 13, 2025 End: July 13, 2025Vinny Viramontesending ProviderActiveStart: July 13, 2025 End: July 13, 2025 Team Status: Inactive Member Role/Relationship Status Dates Ajit Pettit , NITRATE OPERATOR-C Primary Care Provider Active Start: August 01, 2025 End: August 01, 2025Aleena Templeton , [id number] ProviderActive Start: August 01, 2025 End: August 01, 2025 Team Status: Inactive Member Role/Relationship Status Dates Ajit Pettit , NITRATE OPERATOR-C Primary Care Provider Active Start: May 17, 2025 End: May 17, 2025Mony Lepe DODoyleending ProviderActiveStart: May 17, 2025 End: May 17, 2025 Team Status: Inactive Member Role/Relationship Status Dates Ajit Pettit , NITRATE OPERATOR-C Primary Care Provider Active Start: June 18, 2025 End: June 18, 2025Vinny Viramontesending ProviderActiveStart: June 18, 2025 End: June 18, 2025 Team Status: Inactive Member Role/Relationship Status Dates Ajit Pettit , NITRATE OPERATOR-C Primary Care Provider Active Start: June 18, 2025 End: June 18, 2025Vinny Viramontesending ProviderActiveStart: June 18, 2025 End: June 18, 2025 Team Status: Active Member Role/Relationship Status Dates Ajit Pettit , NITRATE OPERATOR-C Primary Care Provider Active Start: July 04, 2025 Vinny Viramontesending ProviderActiveStart: July 04, 2025 Cherie Viramontes ProviderActiveStart: July 04, 2025 Team Status: Inactive Member Role/Relationship Status Dates Ajit Pettit , NITRATE OPERATOR-C Primary Care Provider Active Start: July 13, 2025 End: July 13, 2025Brandy Viramontes ProviderActiveStart: July 13, 2025 End: July 13, 2025 Team Status: Inactive Member Role/Relationship Status Dates Ajit Pettit , NITRATE OPERATOR-C Primary Care Provider Active Start: August 01, 2025 End: August 01, 2025Aleena Templeton , [id number] ProviderActive Start: August 01, 2025 End: August 01, 2025 Team Status: Inactive Member Role/Relationship Status Dates Ajit Pettit NP-C Primary Care Provider Active Start: August 09, 2025 End: August 09Harsha Mcguire ProviderActiveStart: August 09, 2025 End: August 09, 2025 Goals (unrecognized section and content) Goals [...] BE BASED ON THE PRIMARY CLINICAL RECORDS. [facility] [email or web address] [facility]. provides no warranty or guarantee of the accuracy or completeness of information in this document.
[2025-09-30] MEDS: PREDNISONE 10 MG TABLET 50 MG PO (20:30)
[2025-09-30] MEDS: ALBUTEROL SULFATE 2.5 MG/3 ML VIAL NEB IH (20:31)
[2025-09-30 20:56] VITALS: BP 117/77; PULSE 109; TEMP 36.7; O2SAT 98
[2025-09-30 20:59] VITALS: BP 117/77; PULSE 109; TEMP 36.7; O2SAT 98
== END 2025-09-30 21:07 | disposition home or self-care (01) ==
PROVIDERS: Physician Assistant; Emergency Provider Emergency Medicine
DX: J06.9 Acute upper respiratory infection, unspecified (principal); R06.2 Wheezing; F17.200 Nicotine dependence, unspecified, uncomplicated
CPT/HCPCS: 71045; 87804; 87811; 94640; 99284; 99285; J7512